=== PATIENT | female | born 1965 | race Caucasian/White ===

== ENCOUNTER 2018-01-15 12:49 | Emergency (ER) | payer MEDICAID, SELFPAY ==
[2018-01-15 12:50] VITALS: BP 134/69; PULSE 78; RESP 12; TEMP 36.6; BMI 31.2
--- NOTE | 2018-01-15 13:18 | ED.DCSUM_ITS ---
- ER Visit Summary Date of Service: 01/15/18 Chief Complaint: [] Bilateral hand rash and itching for over a month History of Present Illness: The patient is a 52 F [] diabetes well controlled she reports she has had a red itchy rash to her hands for over a month yesterday she began using some type of an ointment she is not sure what it was and then today she noticed a rash into her forearms bilaterally it is itching and making her skin feel like it is burning. She has had no fever no cough no exposures she has dry skin that is apparent when you examine her elbows but she has no underlying skin condition, she has had no exposure to insects or bites she has had no fever no cough and the rash was only on her hands and now it is only on her hands and forearms again her diabetes has been well-controlled she has no other complaints or concerns Physical Examination: [] He does have a red rash involving really the dorsal surface of her hands is extended up to the forearms there is no petechia purpura skin breakdown or blistering her hand function completely normal the rash does anthony there is no signs of fungus no signs of cellulitis, no signs of lymphangitic streaking she has full range of motion of the hands and elbows and upper extremities her HEENT exam is unremarkable her lungs are clear heart tones are normal abdomen soft nontender upper lower extremities unremarkable, her skin exam is otherwise unremarkable the rash is restricted to her hands the folds between her fingers are normal her nail nailbeds are normal I do not see any signs of bite lesions or anything to suggest a cellulitis or infection Test Results: [] Emergency Department Course and Treatment: [] I had a long conversation with the patient she assures me the rash began on her hands she has had it there for months she is not sure what this appointment was she used yesterday and it seems that when she started using the ointment that is when the rash spread to her forearms, clinically she looks well her chief complaint is that the rash is quite itchy, we discussed the long differential she understands at this time she will stop whatever ointment or lotion she has been using on her hands, she will use a mild soap like Dove dry her hands and then apply Lotrisone ointment twice daily and follow-up with her physicians and return for change in symptoms she understands and agrees this plan, I have also given her referral to dermatology Treatment Plan: [] Disposition: [] Home stable Impression: []puritic rash to hands and forearms for months etiology unclear This note was generated with [employer] dictation software. It may contain incorrect words, spelling, and punctuation that were not noted in review of the chart prior to signing ED Disposition - Plan for ED Patient: Chief Complaint: Itching Referrals: Rebeka Rabago MD [Primary Care Provider] -
--- NOTE | 2018-01-15 13:18 | ED.DEP ---
ED Disposition - Plan for ED Patient: Chief Complaint: Itching Instructions: ED Allergic Reaction General Other, ED Dermatitis Contact Prescriptions: Clotrimazole/Betamethasone Dip [Lotrisone Cream] 45 gm TP BID 14 Days cream..g. Referrals: Rebeka Rabago MD [Primary Care Provider] - Erwin Waters MD [CONSULTING PHYSICIAN] - Gladys Trinidad MD [NON-STAFF] - Edy Garcia MD [STAFF PHYSICIAN] -
== END 2018-01-15 13:39 | disposition home or self-care (01) ==
LOC: ED 13:35
PROVIDERS: Emergency Provider Emergency Medicine; Family Provider Internal Medicine; PCP Internal Medicine
DX: L29.9 Pruritus, unspecified (principal); R21 Rash and other nonspecific skin eruption; E11.9 Type 2 diabetes mellitus without complications; Z79.4 Long term (current) use of insulin; Z79.899 Other long term (current) drug therapy

== ENCOUNTER 2021-03-17 16:08 | Emergency (ER) | payer MEDICAID, SELFPAY ==
[2021-03-17 16:09] VITALS: BP 101/55; PULSE 87; RESP 18; TEMP 36.1; O2SAT 97; BMI 35.0
--- NOTE | 2021-03-17 17:02 | EX.ED.DYSGE1 ---
HPI History of Present Illness Chief Complaint: Flank Pain Narrative Narrative: 55-year-old female presenting with left flank pain. She states has been there for about a week. She describes it as aching. She denies dysuria or hematuria. Patient also denies change in bowel habits. She denies fever or chills. She does not have nausea or vomiting. Patient states the pain has been constant and getting worse. She has a history of kidney stones and is not sure if this feels the same. [facility] Medical History Type 2 diabetes mellitus Home Medications canagliflozin [Invokana] 300 mg PO DAILY 05/24/15 [History Last Taken 05/23/15] fenofibrate [Lofibra] 160 mg PO QHS 05/24/15 [History Last Taken 05/23/15] fluticasone propionate 2 spray NASAL QHS 05/24/15 [History Last Taken 05/23/15] hydrochlorothiazide 12.5 mg PO DAILY 05/24/15 [History Last Taken 05/24/15] insulin lispro [Humalog] 16 unit SQ TID 05/24/15 [History Last Taken 05/23/15] levothyroxine 100 mcg PO DAILY 05/24/15 [History Last Taken Unknown] pravastatin 40 mg PO DAILY 05/24/15 [History Last Taken 05/24/15] clotrimazole-betamethasone 45 gm TP BID 14 Days cream..g. 01/15/18 [Rx Last Taken Unknown] insulin glargine [Basaglar Kwikpen U-100] 50 unit SQ DAILY 01/15/18 [History Last Taken Unknown] hydrocodone-acetaminophen 1 tab PO Q6H PRN PRN 3 Days #12 tablet 03/17/21 [Rx Last Taken Unknown] lisinopril 2.5 mg PO DAILY 03/17/21 [History Last Taken Unknown] ondansetron HCl [Zofran] 4 mg PO Q8H PRN #14 tab 03/17/21 [Rx Last Taken Unknown] sulfamethoxazole-trimethoprim [Bactrim DS] 1 tab PO BID #14 tab 03/17/21 [Rx Last Taken Unknown] Allergy/AdvReac Type Severity Reaction Status Date / Time acetaminophen [From Percocet] AdvReac Other Verified 03/17/21 16:11 metformin AdvReac Diarrhea Verified 03/17/21 16:11 oxycodone [From Percocet] AdvReac Other Verified 03/17/21 16:11 Social History Smoking Status: Former smoker ROS ROS ED Constitutional Constitutional ED: Denies chills, fever(s) or sweats Eyes Eyes: Denies blurry vision or change in vision ENT ENT ED: Denies ear pain or sore throat Cardiovascular Cardiovascular: Denies chest pain, palpitations or racing heartbeat Respiratory/Chest Respiratory/Chest: Denies cough, dyspnea or sputum Gastrointestinal Gastrointestinal: Reports abdominal pain; Denies constipation, diarrhea, nausea or vomiting Genitourinary Genitourinary ED: Denies dysuria, hematuria or urinary frequency Musculoskeletal Musculoskeletal: Denies arthralgias, myalgias or neck pain Integumentary Denies abscess, Abrasions or rash Neurologic Neurologic: Denies headache(s), paresthesias or weakness Psychiatric Psychiatric: Denies anxiety, depression, suicidal ideation or suicidal thoughts Endocrine Endocrinology: Denies polydipsia or polyuria EXAM Physical Exam Const Vital Signs: 03/17/21 16:09 03/17/21 16:51 03/17/21 19:13 Temperature 97 F L 98.5 F Temperature Source Temporal Oral Pulse Rate 87 100 Respiratory Rate 18 18 Respiratory Effort Normal Non-Labored Respiratory Pattern Normal Blood Pressure 101/55 L 113/67 Blood Pressure Mean 70 82 Pulse Ox 97 92 Oxygen Delivery Method Room Air Room Air Positive well nourished General Appearance ED: NAD HEENT Reports moist mucous membranes Negative for trauma Eyes PERRL and EOMs intact bilaterally Resp normal respiratory effort and clear to auscultation bilaterally Cardio regular rate and regular rhythm GI normal to inspection, nondistended, normoactive bowel sounds and non-distended Auscultation: hypoactive bowel sounds Palpation: soft Back/Spine no CVA tenderness Extremity normal to inspection General Extremety ED: Negative for edema or tenderness General Extremity: Negative for edema Neuro oriented x3 Sensorium / Orientation: alert Psych mental status grossly normal Skin no rashes or lesions noted and no wounds MDM MDM MDM Narrative Medical decision making narrative: Patient presenting with left flank pain and history of kidney stone. She states her pain is achy in nature. She does not have any CVA tenderness on the left. I table lab work shows a leukocytosis of 13.4, hemoglobin hematocrit are stable.Venous duplex of the right lower extremity shows Renal function appears to be at baseline. Patient had CT abdomen pelvis with out IV contrast which shows no kidney stone but does show hydronephrosis and possibly patient could have passed a kidney stone. Patient has blood in her urine which would support this however she also has a UTI. Patient will be started on Bactrim with first dose given in the ED and treated as pyelonephritis. She is also given [place] for pain and Zofran for nausea. Patient is given return precautions. Impression: 1. Pyelonephritis Lab Data Labs: Laboratory Results - last 24 hr 03/17/21 03/17/21 03/17/21 16:45 16:45 17:20 WBC 13.4 H RBC 5.25 Hgb 14.9 Hct 47.0 MCV 89.5 MCH 28.4 MCHC 31.7 L RDW Std Deviation 44.1 H RDW Coeff of Catina 13.5 Plt Count 178 MPV 11.1 Immature Gran % (Auto) 0.400 Neut % (Auto) 84.2 H Lymph % (Auto) 7.9 L [place] % (Auto) 6.2 Eos % (Auto) 1.2 Baso % (Auto) 0.1 Absolute Neuts (auto) 11.3 H Absolute Lymphs (auto) 1.05 Nucleated RBC % 0 Sodium 141 Potassium 3.9 Chloride 105 Carbon Dioxide 30.0 Anion Gap 6 BUN 40 H Creatinine 1.27 H Estim Creat Clear Calc 41.40 Est GFR (MDRD) Af Amer 56 L Est GFR (MDRD) Non-Af 46 L BUN/Creatinine Ratio 31.5 H Glucose 131 H Calcium 9.6 Total Bilirubin 0.30 AST 11 L ALT 17 Alkaline Phosphatase 62 Total Protein 8.1 Albumin 3.6 Globulin 4.5 H Albumin/Globulin Ratio 0.8 L Urine Color Yellow Urine Clarity Cloudy Urine pH 6.0 Ur Specific [place] 1.015 Urine Protein 100 H Urine Glucose (UA) 1000 H Urine Ketones Negative Urine Occult Blood 250 H Urine Nitrite Positive H Urine Bilirubin Negative Urine Urobilinogen Normal Ur Leukocyte Esterase 500 H Urine RBC 25-50 SEEN Urine WBC >100 SEEN Ur Squamous Epith Cells 0-5 SEEN Urine Bacteria 1+ Urine Mucus 0 SEEN Urine Test Negative Radiography Diagnostic Testing: Radiology Impression Abdomen/Pelvis CT 03/17/21 18:19 IMPRESSION: 1. Mild left hydronephrosis and hydroureter are present as well as mild perinephric stranding most likely due to recent passage of a tiny stone obscured by the fluid within the distended bladder. No additional radiopaque stones are seen in either kidney. 2. Tiny gallstone 3. Cirrhotic liver Electronically Signed: Pranay Wilkins MD at 19:24 EDT , Service support , Discharge Plan Triage Chief Complaint: Flank Pain ED Provider: Steven Trent Dx/Rx/DC Orders Instructions: ED Pyelonephritis, Female (Adult) Prescriptions: New sulfamethoxazole-trimethoprim [Bactrim DS] 800-160 mg tablet 1 tab PO BID Qty: 14 RF: 0 hydrocodone-acetaminophen 5-325 mg tablet 1 tab PO Q6H PRN PRN (Reason: Pain) 3 Days Qty: 12 RF: 0 ondansetron HCl [Zofran] 4 mg tablet 4 mg PO Q8H PRN (Reason: nausea and vomiting) Qty: 14 RF: 0 No Action pravastatin 40 MG tablet 40 mg PO DAILY RF: 0 levothyroxine 88 MCG tablet 100 mcg PO DAILY RF: 0 hydrochlorothiazide 12.5 MG capsule 12.5 mg PO DAILY RF: 0 insulin lispro [Humalog U-100 Insulin] 100 UNIT/ML solution 16 unit SQ TID RF: 0 fenofibrate [Lofibra] 160 MG tablet 160 mg PO QHS RF: 0 canagliflozin [Invokana] 300 MG tablet 300 mg PO DAILY RF: 0 fluticasone propionate 1 SPRAY spray,suspension 2 spray NASAL QHS RF: 0 insulin glargine [Basaglar KwikPen U-100 Insulin] 100 UNIT/ML insulin pen 50 unit SQ DAILY RF: 0 clotrimazole-betamethasone 15 GM cream 45 gm TP BID 14 Days RF: 0 lisinopril 2.5 mg tablet 2.5 mg PO DAILY RF: 0 Primary Care Provider: Rebeka Rabago Referrals: Rebeka Rabago MD [Primary Care Provider] - Disposition Disposition: Home, self care Discharge Date/Time: 03/17/21 20:13
[2021-03-17] MEDS: Morphine 4 MG/ML Syringe IV (17:12)
[2021-03-17] MEDS: Ondansetron 4 MG/2 ML Vial IV (17:14)
[2021-03-17 17:26] LABS: Absolute Lymphocyte Count 1.05 X10^3/uL (0.83-4.51); Absolute Neutrophil Count 11.3 X10^3/uL (2.0-7.7); Basophil# 0.02 X10^3/uL; Basophil% 0.1 % (0-1); Eosinophil# 0.16 X10^3/uL; Eosinophils% 1.2 % (0-5); Hemoglobin 14.9 g/dL (12.0-15.0); Lymphocyte # 1.05 X10^3/ul (0.83-4.51); Lymphocyte % 7.9 % (19-41); Mean Corp Hgb Conc 31.7 g/dL (32-36); Mean Corpuscular Hgb 28.4 pg (27.0-32.0); Mean Corpuscular Volume 89.5 fL (81-99); Mean Platelet Vol. 11.1 fl (6.2-12.0); Monocyte# 0.83 X10^3/uL; Monocyte% 6.2 % (0-10); NRBC Flagged by Analyzer 0 % (0-5); Neutrophil # 11.25 X10^3/uL (2.7-7.7); Neutrophil % 84.2 % (47-70); Platelet Count 178 K/mm3 (150-450); RBC Distribution Width CV 13.5 % (11.6-14.6); RBC Distribution Width SD 44.1 fl (35.1-43.9); Red Blood Count 5.25 M/mm3 (4.2-5.4); White Blood Count 13.4 K/mm3 (4.4-11.0)
[2021-03-17 17:31] LABS: ALB/GLOB Ratio 0.8 RATIO (0.9-2.4); AST(SGOT) 11 U/L (15-37); Alanine Aminotransfer ALT/SGPT 17 U/L (13-56); Albumin, Serum 3.6 g/dL (3.2-5.0); Alkaline Phosphatase 62 U/L (45-117); Anion Gap 6 (5-15); BUN 40 mg/dL (7-18); BUN/Creat Ratio 31.5 RATIO (10-20); Calcium,Total 9.6 mg/dL (8.5-10.1); Chloride 105 mmol/L (98-107); Creatinine, Serum 1.27 mg/dL (0.55-1.02); EST Glomerular Filtration Rate 46 mL/min (>60); Est Glom Filt Rate - Afr Amer 56 mL/min (>60); Globulin 4.5 g/dL (2.2-4.2); Glucose 131 mg/dL (74-106); Potassium 3.9 mmol/L (3.5-5.1); Protein, Total 8.1 g/dL (6.4-8.2); Sodium Level 141 mmol/L (136-145)
[2021-03-17 17:38] LABS: Mucous, Urine 0 SEEN /hpf (<or=2+)
[2021-03-17 17:45] LABS: Color, Urine Yellow (Yellow); Glucose, Dipstick 1000 mg/dl (Normal); Ketone-Dipstick Negative (Negative); Leukocyte Esterase-Dipstick 500 /ul (Negative); Nitrite-Dipstick Positive (Negative); Occult Blood-Urine 250 /ul (Negative); Protein-Dipstick 100 mg/dl (Negative); Specific Gravity, Urine 1.015 (1.002-1.030); Urine Bilirubin Dipstick Negative (Negative); Urine Clarity Cloudy (Clear); Urine Urobilinogen Normal (Normal)
[2021-03-17 17:48] LABS: Internal QC Validated? YES +Cl - CLEAR BKGD
[2021-03-17 17:49] LABS: Pregnancy, Urine Negative Negative
[2021-03-17 17:51] LABS: Bacteria 1+ /hpf (None Seen); Red Blood Cells-Urine 25-50 SEEN /hpf (0-5); Squamous Epithelial Cells - UA 0-5 SEEN /hpf (5-10); White Blood Cells >100 SEEN /hpf (0-5)
--- NOTE | 2021-03-17 18:19 | CT_ITS ---
STUDY: CT ABDOMEN AND PELVIS WITHOUT CONTRAST REASON FOR EXAM: Female, 55 years old. flank pain RADIATION DOSAGE (If Supplied By Facility): CTDIvol = ( 17.45 ) mGy, DLP = ( 919.81 ) mGycm TECHNIQUE: Transaxial images were obtained from the dome of the diaphragm to the symphysis pubis without oral contrast, and without intravenous contrast. Sagittal and coronal images were reconstructed. Individualized dose optimization techniques were used for this CT. COMPARISON: CT of abdomen and pelvis dated November 05, 2016 FINDINGS: There are chronic interstitial fibrotic changes of the lung bases. Small calcified granulomas are present in the lung bases. Small cysts are also seen. There is a diffuse contour abnormality of the liver consistent with cirrhotic changes. There is a tiny solitary gallstone. There are multiple benign calcified granulomata of the spleen. Normal pancreas. Normal bilateral adrenal glands. Normal right kidney. Mild left hydronephrosis and hydroureter are present as well as mild perinephric stranding most likely due to recent passage of a tiny stone obscured by the fluid within the distended bladder. No additional radiopaque stones are seen in either kidney. Normal visualized stomach. Normal small intestine. Normal colon. There is non-visualization of the appendix. Normal abdominal aorta. Normal inferior vena cava. Normal retroperitoneum. Normal urinary bladder. Normal visualized uterus. Small bilateral fat-containing inguinal hernias noted. There are diffuse degenerative changes of the visualized lumbar spine. CT/Abdomen/Pelvis without Cont IMPRESSION: 1. Mild left hydronephrosis and hydroureter are present as well as mild perinephric stranding most likely due to recent passage of a tiny stone obscured by the fluid within the distended bladder. No additional radiopaque stones are seen in either kidney. 2. Tiny gallstone 3. Cirrhotic liver Electronically Signed: Pranay Wilkins MD at 19:24 EDT , Service support ,
[2021-03-17] MEDS: Ketorolac 15 MG/ML Vial IV (19:08)
[2021-03-17 19:13] VITALS: BP 113/67; PULSE 100; RESP 18; TEMP 36.9; O2SAT 92
[2021-03-17] MEDS: Smz/Tmp Ds Tablet 1 TABLET PO (20:06)
[2021-03-17] MEDS: HYDROcodone Bitartrate/Apap 5/325 Tablet PO (20:06)
== END 2021-03-17 20:13 | disposition home or self-care (01) ==
PROVIDERS: Emergency Provider Student in an Organized Health Care Education/Training Program; PCP Internal Medicine
DX: N12 Tubulo-interstitial nephritis, not specified as acute or chronic (principal); Z87.891 Personal history of nicotine dependence; Z87.442 Personal history of urinary calculi; Z79.899 Other long term (current) drug therapy
CPT/HCPCS: 74176; 80053; 81001; 81025; 85025; 96374; 96375; 99284; J7030; A4216; J2405

== ENCOUNTER 2021-03-25 17:12 | Inpatient (IN) | payer MEDICAID, SELFPAY ==
[2021-03-25 17:12] VITALS: BP 96/48; PULSE 83; PULSE 84; RESP 16; TEMP 36.3; O2SAT 98; BMI 34.0
--- NOTE | 2021-03-25 18:13 | ED.VIS.GI ---
HPI HPI - GI History of Present Illness Chief Complaint: Abd Pain Informant: patient Abdominal Pain/Flank Pain Onset: Weeks (almost 2, approx) Context: - (unsure of onset) Timing: Continuous Quality: Aching Location: Left Flank Current Severity: Moderate Maximum Severity: Severe Worsened by: Nothing Relieved by: - (norco, but ran out) Nausea/Vomiting/Emesis GI Symptom: Positive for Nausea; Negative for Vomiting Diarrhea/Melena/Hematochezia GI Symptom: Negative for Diarrhea, Melena and Hematochezia Associated Symptoms Associated Symptoms: Negative for Dysuria, Frequency, Hematuria and Urgency Narrative Narrative: Patient has been having pain in her left flank, lower quadrant, thinks it feels like prior kidney stone, she needed lithotripsy once in the past saw somebody in [facility] for that but does not know who the urologist was it was a long time ago. She was seen here about a week ago had a CT that showed hydronephrosis/hydroureter on the left without a stone, she was told that maybe she passed 1, urine showed infection so she was diagnosed with pyelonephritis and placed on Bactrim which she is almost done with and states her pain is persistent, she denies any new symptoms. She has not followed up with anybody since her visit a week ago. [facility] Medical History (Updated 03/25/21 @ 19:59 by Aida Coronel) Hypercholesteremia Hypertension Hypothyroid Kidney stones Migraines Type 2 diabetes mellitus Home Medications fenofibrate [Lofibra] 160 mg PO QHS 05/24/15 [History Last Taken 05/23/15] fluticasone propionate 2 spray NASAL QHS 05/24/15 [History Last Taken 05/23/15] hydrochlorothiazide 12.5 mg PO DAILY 05/24/15 [History Last Taken 05/24/15] insulin lispro [Humalog] 20 unit SQ TID 05/24/15 [History Last Taken 05/23/15] levothyroxine 100 mcg PO DAILY 05/24/15 [History Last Taken Unknown] pravastatin 40 mg PO DAILY 05/24/15 [History Last Taken 05/24/15] clotrimazole-betamethasone 45 gm TP BID 14 Days cream..g. 01/15/18 [Rx Last Taken Unknown] insulin glargine [Basaglar Kwikpen U-100] 72 unit SQ DAILY 01/15/18 [History Last Taken Unknown] hydrocodone-acetaminophen 1 tab PO Q6H PRN PRN 3 Days #12 tablet 03/17/21 [Rx Last Taken Unknown] lisinopril 2.5 mg PO DAILY 03/17/21 [History Last Taken Unknown] sulfamethoxazole-trimethoprim [Bactrim DS] 1 tab PO BID #14 tab 03/17/21 [Rx Last Taken Unknown] Allergy/AdvReac Type Severity Reaction Status Date / Time metformin AdvReac Diarrhea Verified 03/17/21 16:11 oxycodone [From Percocet] AdvReac upset Verified 03/25/21 20:01 stomach/off balance Surgical History (Updated 03/25/21 @ 20:00 by Aida Coronel) History of appendectomy Previous section Social History Smoking Status: Former smoker ROS ROS ED Constitutional Constitutional ED: Denies chills or fever(s) Eyes Eyes: Denies change in vision or diplopia ENT ENT ED: Denies rhinorrhea or sore throat Cardiovascular Cardiovascular: Denies chest pain or palpitations Respiratory/Chest Respiratory/Chest: Denies cough or dyspnea Gastrointestinal Gastrointestinal: Reports abdominal pain and nausea; Denies diarrhea or vomiting Genitourinary Genitourinary ED: Denies dysuria or hematuria Musculoskeletal Musculoskeletal: Reports back pain; Denies neck pain Integumentary Denies abscess or rash Neurologic Neurologic: Reports headache(s); Denies paresthesias or weakness Psychiatric Psychiatric: Denies anxiety or suicidal thoughts EXAM Physical Exam Const Vital Signs: 03/25/21 17:12 03/25/21 19:16 Temperature 97.4 F L Temperature Source Temporal Pulse Rate 83 90 Respiratory Rate 16 16 Blood Pressure 96/48 L 108/64 Blood Pressure Mean 64 78 Pulse Ox 98 91 Oxygen Delivery Method Room Air Room Air Positive well nourished and well developed General Appearance ED: well developed and NAD HEENT Reports moist mucous membranes normocephalic and atraumatic Eyes PERRL and EOMs intact bilaterally Neck full ROM and supple Resp normal respiratory effort and clear to auscultation bilaterally Cardio regular rate, regular rhythm and no murmurs GI non-tender GI Narrative: Distended with fluid wave Auscultation: normoactive bowel sounds Palpation: soft Back/Spine no CVA tenderness General Back: other FROM Extremity normal to inspection General Extremety ED: Negative for edema, pulses abnormal or tenderness General Extremity: Negative for edema or pulses abnormal Neuro oriented x3, CN's II-XII intact bilaterally and no sensory deficits noted Sensorium / Orientation: awake and alert Motor Exam: strength 5/5 throughout Skin no rashes or lesions noted and no wounds MDM MDM MDM Narrative Medical decision making narrative: Patient feels better after antiemetic and analgesics, her work-up shows that her creatinine now is 2.2, up from 1.27, with a similar BUN around 40, and her urine still shows significant pyuria/infection. No culture was sent before, I sent one, her white blood count is higher than it was before, I treated her with Rocephin, plan is for admission mainly because of the renal failure. Discussed with hospitalist and urology Dr. Alfonso, agrees with this course of action. Lab Data Attestation: I reviewed the patient's lab results. Labs: Laboratory Results - last 24 hr 03/25/21 03/25/21 03/25/21 18:20 18:43 18:43 WBC 14.4 H RBC 4.55 Hgb 12.8 Hct 40.5 MCV 89.0 MCH 28.1 MCHC 31.6 L RDW Std Deviation 44.8 H RDW Coeff of Catina 13.8 Plt Count 185 MPV 10.2 Immature Gran % (Auto) 0.900 Neut % (Auto) 82.3 H Lymph % (Auto) 8.8 L [place] % (Auto) 7.5 Eos % (Auto) 0.3 Baso % (Auto) 0.2 Absolute Neuts (auto) 11.8 H Absolute Lymphs (auto) 1.26 Nucleated RBC % 0 Sodium 134 L Potassium 4.2 Chloride 99 Carbon Dioxide 27.0 Anion Gap 8 BUN 42 H Creatinine 2.20 H Estim Creat Clear Calc 24.95 Est GFR (MDRD) Af Amer 30 L Est GFR (MDRD) Non-Af 25 L BUN/Creatinine Ratio 19.1 Glucose 134 H Calcium 9.3 Urine Color Yellow Urine Clarity Turbid Urine pH 6.0 Ur Specific [place] 1.015 Urine Protein 100 H Urine Glucose (UA) 1000 H Urine Ketones Negative Urine Occult Blood 50 H Urine Nitrite Positive H Urine Bilirubin Negative Urine Urobilinogen Normal Ur Leukocyte Esterase 500 H Urine RBC 0 SEEN Urine WBC >100 SEEN Ur Squamous Epith Cells 0 SEEN Urine Bacteria 0 SEEN Urine Mucus 0 SEEN Discharge Plan Dx/Rx/DC Orders Clinical Impression: Pyelonephritis, Failure of outpatient treatment, Acute renal failure Disposition Disposition: [facility]
[2021-03-25] MEDS: Ondansetron 4 MG/2 ML Vial IV (18:45)
[2021-03-25] MEDS: Morphine 4 MG/ML Syringe IV ×2 (18:47→20:23)
[2021-03-25 18:53] LABS: Absolute Lymphocyte Count 1.26 X10^3/uL (0.83-4.51); Absolute Neutrophil Count 11.8 X10^3/uL (2.0-7.7); Basophil# 0.03 X10^3/uL; Basophil% 0.2 % (0-1); Eosinophil# 0.04 X10^3/uL; Eosinophils% 0.3 % (0-5); Hematocrit 40.5 % (37-47); Hemoglobin 12.8 g/dL (12.0-15.0); Lymphocyte # 1.26 X10^3/ul (0.83-4.51); Lymphocyte % 8.8 % (19-41); Mean Corp Hgb Conc 31.6 g/dL (32-36); Mean Corpuscular Hgb 28.1 pg (27.0-32.0); Mean Platelet Vol. 10.2 fl (6.2-12.0); Monocyte# 1.08 X10^3/uL; Monocyte% 7.5 % (0-10); NRBC Flagged by Analyzer 0 % (0-5); Neutrophil # 11.82 X10^3/uL (2.7-7.7); Neutrophil % 82.3 % (47-70); Platelet Count 185 K/mm3 (150-450); RBC Distribution Width CV 13.8 % (11.6-14.6); RBC Distribution Width SD 44.8 fl (35.1-43.9); Red Blood Count 4.55 M/mm3 (4.2-5.4); White Blood Count 14.4 K/mm3 (4.4-11.0)
[2021-03-25 18:53] LABS: Bacteria 0 SEEN /hpf (None Seen); Mucous, Urine 0 SEEN /hpf (<or=2+); Red Blood Cells-Urine 0 SEEN /hpf (0-5); Squamous Epithelial Cells - UA 0 SEEN /hpf (5-10)
[2021-03-25 18:55] LABS: Color, Urine Yellow (Yellow); Glucose, Dipstick 1000 mg/dl (Normal); Ketone-Dipstick Negative (Negative); Leukocyte Esterase-Dipstick 500 /ul (Negative); Nitrite-Dipstick Positive (Negative); Occult Blood-Urine 50 /ul (Negative); Protein-Dipstick 100 mg/dl (Negative); Specific Gravity, Urine 1.015 (1.002-1.030); Urine Bilirubin Dipstick Negative (Negative); Urine Clarity Turbid (Clear); Urine Urobilinogen Normal (Normal)
[2021-03-25 19:03] LABS: White Blood Cells >100 SEEN /hpf (0-5)
[2021-03-25 19:07] LABS: Anion Gap 8 (5-15); BUN 42 mg/dL (7-18); BUN/Creat Ratio 19.1 RATIO (10-20); Calcium,Total 9.3 mg/dL (8.5-10.1); Chloride 99 mmol/L (98-107); EST Glomerular Filtration Rate 25 mL/min (>60); Est Glom Filt Rate - Afr Amer 30 mL/min (>60); Estimated Creatinine Clearance 24.95 ml/min; Glucose 134 mg/dL (74-106); Potassium 4.2 mmol/L (3.5-5.1); Sodium Level 134 mmol/L (136-145)
[2021-03-25 19:16] VITALS: BP 108/64; PULSE 90; RESP 16; O2SAT 91
[2021-03-25] MEDS: Ceftriaxone 1 GM/50 ML BAG IV (20:11)
[2021-03-25 20:54] VITALS: BP 108/64; PULSE 90; RESP 16; TEMP 36.3; O2SAT 91
--- NOTE | 2021-03-25 20:59 | HP.PCM.HOS_ITS ---
HPI - General General Date of Admission: 03/25/21 Date of Service: 03/25/21 Chief Complaint: left flank pain HPI Narrative BETTY AGARWAL, is a 55 F who presents presents with 2 and half week history of left flank pain. Patient also complains of urinary hesitancy and frequency. Patient was seen in the emergency room on the and underwent a CAT scan that showed mild left hydronephrosis and hydroureter as well as mild perinephric stranding most likely due to recent passage of tiny stone. Patient was found to have urinary tract infection and discharged with trimethoprim/sulfamethoxazole. Patient said that she had been taking it but had not followed up with anyone but her pain has not gotten any better. She presents again to the emergency room today again the urinalysis shows signs of an infection. Patient's creatinine has gone from 1.2-2.2 now. Patient did receive fluids as well is ceftriaxone in the emergency room. Emergency room reached out to urology, with Dr. Chakraborty, who said that she would be willing to see the patient on consultation. [facility] Medical History Hypercholesteremia Hypertension Hypothyroid Kidney stones Migraines Type 2 diabetes mellitus Home Medications fluticasone propionate 2 spray NASAL QHS 05/24/15 [History Last Taken 03/24/21] hydrochlorothiazide 12.5 mg PO DAILY 05/24/15 [History Last Taken 03/24/21] insulin lispro [Humalog] 20 unit SQ TID 05/24/15 [History Last Taken 03/24/21] pravastatin 40 mg PO DAILY 05/24/15 [History Last Taken 03/24/21] insulin glargine [Basaglar Kwikpen U-100] 72 unit SQ DAILY 01/15/18 [History Last Taken 03/24/21] lisinopril 2.5 mg PO DAILY 03/17/21 [History Last Taken 03/24/21] sulfamethoxazole-trimethoprim [Bactrim DS] 1 tab PO BID #14 tab 03/17/21 [Rx Last Taken 03/24/21] dulaglutide [Trulicity] 1.5 mg SUBCUT JOHNSON 03/25/21 [History Last Taken 03/23/21] estradiol 3 g VAGINAL .2X/WEEK 03/25/21 [History Last Taken Unknown] fenofibrate 160 mg PO DAILY 03/25/21 [History Last Taken 03/24/21] gabapentin 300 mg PO QHS 03/25/21 [History Last Taken 03/24/21] levothyroxine 175 mcg PO DAILY 03/25/21 [History Last Taken 03/24/21] meloxicam 15 mg PO DAILY PRN 03/25/21 [History Last Taken Unknown] omega-3 fatty acids-vitamin E [Fish Oil] 1 cap PO DAILY 03/25/21 [History Last Taken 03/24/21] vitamin E 400 unit PO DAILY 03/25/21 [History Last Taken 03/24/21] Allergy/AdvReac Type Severity Reaction Status Date / Time metformin AdvReac Diarrhea Verified 03/17/21 16:11 oxycodone [From Percocet] AdvReac upset Verified 03/25/21 20:01 stomach/off balance Surgical History History of appendectomy Previous section Social History Smoking Status: Former smoker ROS ROS Narrative No fever chills. No sick contacts. No COVID-19 exposure. All review of systems were negative except as mentioned above in the history of present illness and the other review of systems. ENT HEENT: Reports headache(s) Gastrointestinal Gastrointestinal: Reports abdominal pain and nausea; Denies vomiting Genitourinary Genitourinary: Reports difficulty urinating, urinary frequency and urinary hesitancy; Denies burning urination Vital Signs Vital Signs Vital Signs: 03/25/21 17:12 03/25/21 19:16 03/25/21 20:54 Temperature 36.3 C L 36.3 C L Temperature Source Temporal Temporal Pulse Rate 83 90 90 Respiratory Rate 16 16 16 Blood Pressure 96/48 L 108/64 108/64 Blood Pressure Mean 64 78 78 Pulse Ox 98 91 91 Oxygen Delivery Method Room Air Room Air Room Air Weight Weight: 90 kg Body Mass Index (BMI) 34.0 Physical Exam Const alert General Appearance: cooperative HEENT normocephalic Neck no lymphadenopathy Resp normal respiratory effort and clear to auscultation bilaterally Cardio regular rate, regular rhythm, S1 normal heart sound and S2 normal heart sound GI normal to inspection, nondistended, normoactive bowel sounds, non-tender and non-distended GI Narrative: No CVA tenderness Extremity normal to inspection Skin Skin Narrative: Does have a scab on her right anterior jacobs. No surrounding erythema to suggest cellulitis. No rash noted over the left flank to suggest herpes zoster. Neuro moves all extremities and no focal motor deficits Sensorium / Orientation: awake and alert Psych affect normal Results Lab / Micro Data Attestation: I reviewed the patient's lab results. Result Diagrams: 03/25/21 18:43 03/25/21 18:43 Labs: Laboratory Results - last 24 hr 03/25/21 03/25/21 03/25/21 18:20 18:43 18:43 WBC 14.4 H RBC 4.55 Hgb 12.8 Hct 40.5 MCV 89.0 MCH 28.1 MCHC 31.6 L RDW Std Deviation 44.8 H RDW Coeff of Catina 13.8 Plt Count 185 MPV 10.2 Immature Gran % (Auto) 0.900 Neut % (Auto) 82.3 H Lymph % (Auto) 8.8 L [place] % (Auto) 7.5 Eos % (Auto) 0.3 Baso % (Auto) 0.2 Absolute Neuts (auto) 11.8 H Absolute Lymphs (auto) 1.26 Nucleated RBC % 0 Sodium 134 L Potassium 4.2 Chloride 99 Carbon Dioxide 27.0 Anion Gap 8 BUN 42 H Creatinine 2.20 H Estim Creat Clear Calc 24.95 Est GFR (MDRD) Af Amer 30 L Est GFR (MDRD) Non-Af 25 L BUN/Creatinine Ratio 19.1 Glucose 134 H Calcium 9.3 Urine Color Yellow Urine Clarity Turbid Urine pH 6.0 Ur Specific [place] 1.015 Urine Protein 100 H Urine Glucose (UA) 1000 H Urine Ketones Negative Urine Occult Blood 50 H Urine Nitrite Positive H Urine Bilirubin Negative Urine Urobilinogen Normal Ur Leukocyte Esterase 500 H Urine RBC 0 SEEN Urine WBC >100 SEEN Ur Squamous Epith Cells 0 SEEN Urine Bacteria 0 SEEN Urine Mucus 0 SEEN Assessment & Plan Assessment/Plan (1) Pyelonephritis: (2) Acute renal failure: QUALIFIERS: Acute renal failure type: unspecified Qualified Code(s): N17.9 - Acute kidney failure, unspecified PLAN: 1. Acute pyelonephritis * CAT scan noted perinephric stranding back on the . * Patient still experiencing left flank pain * Urinalysis still showing signs of infection despite the trimethoprim/sulfamethoxazole. * Patient received ceftriaxone in the emergency room and will continue on the floor. * Unfortunately no urine culture was performed on the but a urine culture was performed today and will need to be followed up. * Adjust antibiotics accordingly based on culture results. 2. Hydronephrosis and hydroureter * No stone noted at that time on the . * Will repeat ultrasound and if still showing hydronephrosis and hydroureter, co nsider consulting urology 3. Acute kidney injury * Worse from a week ago * Unclear if obstructive or related with trimethoprim/sulfamethoxazole * Continue with IV fluids * Recheck BMP * Consider nephrology consultation if creatinine worsens. * Hold lisinopril and HCTZ 4. Diabetes mellitus type 2 * Continue basal and prandial insulin. + Scale insulin. 5. VTE prophylaxis with low molecular weight heparin 6. Medical maintenance: Patient has not gotten vaccinated nor has contracted COVID-19. She expressed no desire to get the COVID-19 vaccination stating that she just stays inside all the time. I encouraged her to get the COVID-19 vaccination as the risks of COVID-19 far outweigh the risks COVID-19 vaccination. Patient such as her self with her comorbidities. She made no reply in the affirmative whether or not she would get the vaccine. Charges/Coding Visit Charges Inpatient E&M: 32823 Init Hosp L3
[2021-03-25 21:19] VITALS: BP 103/53; PULSE 99; RESP 18; TEMP 36.8; O2SAT 94
[2021-03-25 21:22] VITALS: BMI 34.7
--- NOTE | 2021-03-25 21:27 | US_ITS ---
STUDY: RENAL ULTRASOUND - COMPLETE REASON FOR EXAM: Female, 55 years old. left hydronephrosis TECHNIQUE: Ultrasound evaluation of the kidneys was performed with real-time and static noguera-scale imaging. COMPARISON: CT abdomen and pelvis dated 03/17/2021 FINDINGS: RIGHT KIDNEY: Normal location of the right kidney, which is normal in size. The right kidney measures 13.4 cm. There is a normal cortex of the right kidney. The renal cortex measures 1.7 cm. Small subcentimeter anechoic midpole renal cyst. There are no right renal calculi. There is no right hydronephrosis. DISTAL RIGHT URETER: There is non-visualization of the distal right ureter. There is no demonstrated right ureterovesical junction calculus. There is no demonstrated right ureteral jet. LEFT KIDNEY: Normal location of the left kidney, which is normal in size. The left kidney measures 12.6 cm. There is a normal cortex of the left kidney. The renal cortex measures 1.7 cm. There is no left renal mass or cyst. There are no left renal calculi. There is no left hydronephrosis. DISTAL LEFT URETER: There is non-visualization of the distal left ureter. There is no demonstrated left ureterovesical junction calculus. There is no demonstrated left ureteral jet. BLADDER: The distended urinary bladder has a volume of 555 ml. There is a normal wall thickness of the distended urinary bladder. There is no demonstrated mass within the urinary bladder. There are no demonstrated bladder calculi. US/Kidney and Bladder IMPRESSION: Subcentimeter right renal cyst, otherwise unremarkable kidneys. Unremarkable urinary bladder. No evidence of hydronephrosis Electronically Signed: Anatoliy Connor DO at 1:15 EDT Tel , Service support ,
[2021-03-25 21:40] LABS: Bedside Glucose 129 mg/dL (70-110)
[2021-03-25] MEDS: Gabapentin 300 MG Capsule PO (22:33)
[2021-03-25] MEDS: 0.9% Normal Saline 1,000 ML 150 ML IV (22:33)
[2021-03-25] MEDS: Fluticasone 0.05% 1 SPRAY NASAL.SRY 2 SPRAY NASAL (22:33)
[2021-03-25 23:00] VITALS: PULSE 108
[2021-03-26] VITALS (18 sets, daily range): BP systolic 88–118; BP diastolic 41–60; PULSE 72–98; RESP 18–22; TEMP 36.6–37.4; O2SAT 85–95
[2021-03-26] MEDS: 0.9% Normal Saline 1,000 ML 150 ML IV ×2 (04:34→11:14)
[2021-03-26] MEDS: Levothyroxine 175 MCG Tablet PO (06:26)
[2021-03-26 06:56] LABS: Absolute Lymphocyte Count 1.27 X10^3/uL (0.83-4.51); Absolute Neutrophil Count 11.4 X10^3/uL (2.0-7.7); Basophil# 0.03 X10^3/uL; Basophil% 0.2 % (0-1); Eosinophil# 0.01 X10^3/uL; Eosinophils% 0.1 % (0-5); Hematocrit 36.3 % (37-47); Hemoglobin 11.4 g/dL (12.0-15.0); Lymphocyte # 1.27 X10^3/ul (0.83-4.51); Lymphocyte % 9.2 % (19-41); Mean Corp Hgb Conc 31.4 g/dL (32-36); Mean Corpuscular Hgb 28.1 pg (27.0-32.0); Mean Corpuscular Volume 89.4 fL (81-99); Mean Platelet Vol. 10.3 fl (6.2-12.0); Monocyte# 0.98 X10^3/uL; Monocyte% 7.1 % (0-10); NRBC Flagged by Analyzer 0 % (0-5); Neutrophil # 11.37 X10^3/uL (2.7-7.7); Neutrophil % 82.7 % (47-70); Platelet Count 171 K/mm3 (150-450); RBC Distribution Width CV 13.6 % (11.6-14.6); Red Blood Count 4.06 M/mm3 (4.2-5.4); White Blood Count 13.8 K/mm3 (4.4-11.0)
[2021-03-26 07:38] LABS: Anion Gap 8 (5-15); BUN 44 mg/dL (7-18); BUN/Creat Ratio 20.1 RATIO (10-20); Calcium,Total 8.4 mg/dL (8.5-10.1); Chloride 103 mmol/L (98-107); Creatinine, Serum 2.19 mg/dL (0.55-1.02); EST Glomerular Filtration Rate 25 mL/min (>60); Est Glom Filt Rate - Afr Amer 30 mL/min (>60); Estimated Creatinine Clearance 24.01 ml/min; Glucose 133 mg/dL (74-106); Potassium 4.3 mmol/L (3.5-5.1); Sodium Level 134 mmol/L (136-145)
--- NOTE | 2021-03-26 09:12 | PN.HOSP_ITS ---
Subjective Subjective Patient was seen and examined. She feels unwell. She is having low-grade fevers. Denies any dizziness or palpitations. Objective Data Objective Data Vital Signs: Vital Signs Temp Pulse Resp BP Pulse Ox 99.2 F H 98 20 H 113/45 L 92 03/26/21 09:08 03/26/21 09:08 03/26/21 09:08 03/26/21 09:08 03/26/21 09:09 Oxygen Flow Rate (L/min) 2 Oxygen Delivery Method Nasal Cannula Weight: 90.5 kg Body Mass Index (BMI) 34.7 Intake & Output: Intake and Output for Last 24 Hours 03/24/21 03/25/21 03/26/21 23:59 23:59 23:59 Intake Total 550 / 700 1205 / 1205 Balance 550 / 700 1205 / 1205 Lab / Micro Data Result Diagrams: 03/26/21 06:35 03/26/21 06:35 Labs: Laboratory Results - last 24 hr 03/25/21 03/25/21 03/25/21 18:20 18:43 18:43 WBC 14.4 H RBC 4.55 Hgb 12.8 Hct 40.5 MCV 89.0 MCH 28.1 MCHC 31.6 L RDW Std Deviation 44.8 H RDW Coeff of Catina 13.8 Plt Count 185 MPV 10.2 Immature Gran % (Auto) 0.900 Neut % (Auto) 82.3 H Lymph % (Auto) 8.8 L [place] % (Auto) 7.5 Eos % (Auto) 0.3 Baso % (Auto) 0.2 Absolute Neuts (auto) 11.8 H Absolute Lymphs (auto) 1.26 Nucleated RBC % 0 Sodium 134 L Potassium 4.2 Chloride 99 Carbon Dioxide 27.0 Anion Gap 8 BUN 42 H Creatinine 2.20 H Estim Creat Clear Calc 24.95 Est GFR (MDRD) Af Amer 30 L Est GFR (MDRD) Non-Af 25 L BUN/Creatinine Ratio 19.1 Glucose 134 H Calcium 9.3 Urine Color Yellow Urine Clarity Turbid Urine pH 6.0 Ur Specific [place] 1.015 Urine Protein 100 H Urine Glucose (UA) 1000 H Urine Ketones Negative Urine Occult Blood 50 H Urine Nitrite Positive H Urine Bilirubin Negative Urine Urobilinogen Normal Ur Leukocyte Esterase 500 H Urine RBC 0 SEEN Urine WBC >100 SEEN Ur Squamous Epith Cells 0 SEEN Urine Bacteria 0 SEEN Urine Mucus 0 SEEN POC Glucose 03/25/21 03/26/21 03/26/21 21:35 06:35 06:35 WBC 13.8 H RBC 4.06 L Hgb 11.4 L Hct 36.3 L MCV 89.4 MCH 28.1 MCHC 31.4 L RDW Std Deviation 45.0 H RDW Coeff of Catina 13.6 Plt Count 171 MPV 10.3 Immature Gran % (Auto) 0.700 Neut % (Auto) 82.7 H Lymph % (Auto) 9.2 L [place] % (Auto) 7.1 Eos % (Auto) 0.1 Baso % (Auto) 0.2 Absolute Neuts (auto) 11.4 H Absolute Lymphs (auto) 1.27 Nucleated RBC % 0 Sodium 134 L Potassium 4.3 Chloride 103 Carbon Dioxide 23.0 Anion Gap 8 BUN 44 H Creatinine 2.19 H Estim Creat Clear Calc 24.01 Est GFR (MDRD) Af Amer 30 L Est GFR (MDRD) Non-Af 25 L BUN/Creatinine Ratio 20.1 H Glucose 133 H Calcium 8.4 L Urine Color Urine Clarity Urine pH Ur Specific [place] Urine Protein Urine Glucose (UA) Urine Ketones Urine Occult Blood Urine Nitrite Urine Bilirubin Urine Urobilinogen Ur Leukocyte Esterase Urine RBC Urine WBC Ur Squamous Epith Cells Urine Bacteria Urine Mucus POC Glucose 129 H Radiography Diagnostic Testing: Radiology Impression Renal Ultrasound 03/25/21 21:27 IMPRESSION: Subcentimeter right renal cyst, otherwise unremarkable kidneys. Unremarkable urinary bladder. No evidence of hydronephrosis Electronically Signed: Anatoliy Connor DO at 1:15 EDT Tel , Service support , Physical Exam Narrative Physical exam: General: Alert, Oriented x3, Cooperative, appears unwell HEENT: Atraumatic Oral: Moist Mucosa Neck: Supple Lungs: Clear to auscultation Cardiovascular: HS I+II, regular, no murmurs Abdomen: Bowel Sounds Present, Soft, Non Tender Extremities: No edema Skin: No rashes, No breakdown Neurological: Grossly intact Psych/Mental Status: Appropriate Assessment & Plan Assessment/Plan (1) Acute renal failure: QUALIFIERS: Acute renal failure type: unspecified Qualified Code(s): N17.9 - Acute kidney failure, unspecified (2) UTI (urinary tract infection): (3) Pyelonephritis: PLAN: 1. Acute UTI in a patient with recent pyelonephritis, remains about the same CT scan done on 03/04 4 showed mild left hydronephrosis and hydroureter with mild perinephric stranding Renal ultrasound done this morning is unremarkable, no evidence of hydronephrosis Urine cultures are pending, continue on IV ceftriaxone 2. Acute kidney injury on CKD stage III, prerenal secondary to #1, minimally improved Admitted with creatinine of 2.20, creatinine is 2.19 today, continue on IV fluid Continue to hold lisinopril, hydrochlorothiazide, initiate, Bactrim, repeat blood work in a.m. 3. Type II DM, blood sugars relatively controlled, Would hold insulin regimen and continue only with blood glucose checks with insulin sliding scale 4. Hypertension, controlled, will hold hydrochlorothiazide and lisinopril,as well as NSAIDs for now 5. Rest of chronic medical problems are stable Meds reviewed Charges/Coding Visit Charges Inpatient E&M: 26108 Subs Hosp L2
[2021-03-26] MEDS: Acetaminophen 325 MG Tablet 650 MG PO ×2 (09:23→21:20)
[2021-03-26] MEDS: Pravastatin 40 MG Tablet PO ×2 (09:23)
[2021-03-26] MEDS: Enoxaparin 30 MG/0.3 ML Syringe SC (09:23)
--- NOTE | 2021-03-26 10:10 | CASEMGMT ---
Addendum entered by Eusebio Olmedo 03/26/21 11:50: Pt states she manages her own medications and appts and denies need for assistance. She states she used to smoke, but quit about 7 yrs ago. She drinks a wine-cooler Every now and then, but nothing major. Original Note: RN CM MARKETING CONTENT COORDINATOR CM to room to meet with patient for initial transition planning/care coordination assessment. RN DIANA introduced self and role at [facility]. Pt voices understanding and consents to assessment at this time. Pt resting in bed in no distress at this time. Pt is A/O at this time and answers all questions appropriately. Care providers, pharmacy, and demographics verified/updated at this time. PCP: Dr Rabago Specialists: none Preferred Pharmacy: [facility] Insurance: [facility] Prescription Benefit: Yes Living Will/HPOA: States does not have LW or HCPOA . Interested in more information and would like to talk with SW to complete paperwork. Provided information on advanced directives and given Social Service rac card with number to call if chooses in the future to utilize [facility] social work for advanced directive completion in case SW is unable to meet with her prior to discharged. Educated patient that, if patient so chooses, can come back to [facility] and meet with a SW as an outpatient to complete health care advanced directives. Patient expresses understanding. LNOK: Son, Jeramy Romero. [id number], Ann-Marie Romero. Pt agreeable to having Jeramy listed on her demographics for contact, but she does not know his phone number. Living Arrangements: Lives w/her son in mobile home w/3 steps to enter. Independent w/ADL's and IADL's. Son cooks on occasion. Transportation: Pt states she does not drive. JOSEEAnn-Marie, provides transportation--she takes her to her appts and grocery shopping. DME: States has the following DME: Functioning glucometer w/supplies. Pt uses no DME to ambulate. Pt states no need for further DME at this time. HHC/SNF: No history of either. Pt denies needs and no needs identified. Pt wishes to return home and states has no concerns with going home at time of discharge. CM to follow for any discharge planning/needs. Pt voices no concerns/needs at this time. Advised pt to ask for CM if any questions/concerns/needs arise. Voices understanding. PLAN: Home w/discharge plans in place. Brittany MARTINEZ RN CM
--- NOTE | 2021-03-26 10:52 | CASEMGMT ---
Social Work Note SW received referral for advanced directives. SW in to speak with pt. SW introduced self and role at [facility]. Pt states she is not feeling well today, doesn't want to complete documents today. SW provided pt with advanced directives. SW to remain available should pt want to complete documents at a later time. Aida Fleming CONTACT CENTER AGENT, CLINICAL LAB ASSISTANT
[2021-03-26] MEDS: 0.9% Saline Lock 10 ML Syringe IV ×2 (11:30→21:34)
[2021-03-26] MEDS: Ondansetron 4 MG/2 ML Vial IV ×2 (11:30→21:34)
--- NOTE | 2021-03-26 11:41 | EKG12_ITS ---
Test Reason : ARRYTHMIA Blood Pressure : / mmHG Vent. Rate : 081 BPM Atrial Rate : 081 BPM P-R Int : 162 ms QRS Dur : 100 ms QT Int : 386 ms P-R-T Axes : 036 011 049 degrees QTc Int : 448 ms Normal sinus rhythm Nonspecific T wave abnormality Abnormal ECG No previous ECGs available Confirmed by JACQUIE DUNNE, XIMENA ([id number]), web content editor ALICJA DE LA PAZ ([id number]) on 03/28/2021 11:34:18 AM Referred By: BIENVENIDO Confirmed By:XIMENA DHILLON MD
--- NOTE | 2021-03-26 12:05 | RAD_ITS ---
STUDY: X-RAY CHEST REASON FOR EXAM: Female, 55 years old. Shortness of breath. TECHNIQUE: Frontal view of the chest COMPARISON: None. FINDINGS: The lungs are clear. There are no pleural effusions. There is no pneumothorax. The heart is enlarged. The visualized osseous structures are within normal limits. RAD/Chest 1 View (Portable) IMPRESSION: Cardiomegaly. Clear lungs. Electronically Signed: Garry Way MD at 13:14 EDT Tel , Service support ,
[2021-03-26 12:58] LABS: Lactic Acid 0.8 mmol/L (0.4-1.9)
[2021-03-26 13:08] LABS: Troponin-I HS 12.3 pg/mL (3.0-53.7)
[2021-03-26] MEDS: Lidocaine 5% Patch 2 PATCH TOPICAL (13:59)
[2021-03-26 15:02] LABS: Troponin-I HS 11.6 pg/mL (3.0-53.7)
--- NOTE | 2021-03-26 16:31 | CHAPLAIN ---
Type of Pastoral Visit _x__ Initial Visit ___ Follow-up Visit ___ On-call Visit ___ General Patient Visit ___ Spiritual Assessment ___ Family Conference ___ Bereavement ___ Rapid Response ___ Code Blue ___ Other (describe below) Pastoral Care Referral From _x__ Patient ___ Family ___ Nurse ___ Physician ___ Java Consultant ___ Over The Road Driver ___ Other (describe below) Sacrament/Intervention _x__ Active listening ___ Anointing ___ Episcopal ___ Bereavement ___ Communion ___ Vicky exploration ___ ___ Life review _x__ Prayer ___ Reconciliation ___ Sacrament of Sick _x__ Supportive presence ___ Wedding ___ Other (describe below) Pastoral Comments
--- NOTE | 2021-03-26 16:58 | NURSING ---
pt denies any feelings/urgency/need to void. bladder scan done d/t no void since this am. will notify
[2021-03-26 17:06] LABS: Bedside Glucose 149 mg/dL (70-110)
[2021-03-26 17:46] LABS: Allen Test Positive; Base Excess -4 mmol/L (-2 to +2); Bicarbonate 21.5 mmol/L (22-26); Blood Gas Specimen Type ART; O2 Delivery Device Cannula; PO2 55 mmHG (75-100); SITE R Brach; SO2 88 % (95-99); Total Carbon Dioxide 23 mmol/L; pH 7.39 (7.35-7.45)
[2021-03-26] MEDS: 0.9% Normal Saline 1,000 ML 200 ML IV ×2 (18:55→23:53)
[2021-03-26] MEDS: Ipratropium/Albuterol Sulfate 3 ML AMPUL.NEB INHALATION (19:35)
[2021-03-26] MEDS: Ceftriaxone 1 GM/50 ML BAG IV (21:20)
[2021-03-26] MEDS: Fluticasone 0.05% 1 SPRAY NASAL.SRY 2 SPRAY NASAL (21:21)
[2021-03-26] MEDS: Gabapentin 300 MG Capsule PO (21:21)
[2021-03-26 21:36] LABS: Bedside Glucose 126 mg/dL (70-110)
[2021-03-27] VITALS (15 sets, daily range): BP systolic 98–124; BP diastolic 43–72; PULSE 68–99; RESP 16–30; TEMP 36.6–37.3; O2SAT 93–96
[2021-03-27 00:45] LABS: Bedside Glucose 122 mg/dL (70-110)
[2021-03-27] MEDS: Levothyroxine 175 MCG Tablet PO (06:10)
[2021-03-27] MEDS: 0.9% Normal Saline 1,000 ML 200 ML IV ×2 (06:10→10:44)
[2021-03-27] MEDS: Acetaminophen 325 MG Tablet 650 MG PO ×2 (06:12→22:18)
[2021-03-27 06:15] LABS: Bedside Glucose 107 mg/dL (70-110)
[2021-03-27 06:23] LABS: Absolute Lymphocyte Count 1.01 X10^3/uL (0.83-4.51); Absolute Neutrophil Count 7.1 X10^3/uL (2.0-7.7); Basophil# 0.02 X10^3/uL; Basophil% 0.2 % (0-1); Eosinophil# 0.13 X10^3/uL; Eosinophils% 1.4 % (0-5); Hematocrit 36.4 % (37-47); Hemoglobin 11.3 g/dL (12.0-15.0); Lymphocyte # 1.01 X10^3/ul (0.83-4.51); Mean Corpuscular Hgb 27.9 pg (27.0-32.0); Mean Corpuscular Volume 89.9 fL (81-99); Mean Platelet Vol. 10.1 fl (6.2-12.0); Monocyte# 0.86 X10^3/uL; Monocyte% 9.3 % (0-10); NRBC Flagged by Analyzer 0 % (0-5); Neutrophil # 7.11 X10^3/uL (2.7-7.7); Neutrophil % 77.2 % (47-70); Platelet Count 148 K/mm3 (150-450); RBC Distribution Width CV 13.7 % (11.6-14.6); RBC Distribution Width SD 45.2 fl (35.1-43.9); Red Blood Count 4.05 M/mm3 (4.2-5.4); White Blood Count 9.2 K/mm3 (4.4-11.0)
[2021-03-27] MEDS: Ipratropium/Albuterol Sulfate 3 ML AMPUL.NEB INHALATION ×3 (06:42→22:52)
[2021-03-27 06:49] LABS: ALB/GLOB Ratio 0.6 RATIO (0.9-2.4); AST(SGOT) 25 U/L (15-37); Alanine Aminotransfer ALT/SGPT 15 U/L (13-56); Albumin, Serum 2.4 g/dL (3.2-5.0); Alkaline Phosphatase 45 U/L (45-117); Anion Gap 6 (5-15); BUN 33 mg/dL (7-18); BUN/Creat Ratio 23.2 RATIO (10-20); Calcium,Total 7.4 mg/dL (8.5-10.1); Chloride 108 mmol/L (98-107); Creatinine, Serum 1.42 mg/dL (0.55-1.02); EST Glomerular Filtration Rate 41 mL/min (>60); Est Glom Filt Rate - Afr Amer 49 mL/min (>60); Estimated Creatinine Clearance 37.03 ml/min; Globulin 4.3 g/dL (2.2-4.2); Glucose 99 mg/dL (74-106); Potassium 4.1 mmol/L (3.5-5.1); Protein, Total 6.7 g/dL (6.4-8.2); Sodium Level 137 mmol/L (136-145)
[2021-03-27] MEDS: Lidocaine 5% Patch 2 PATCH TOPICAL (08:46)
[2021-03-27] MEDS: Enoxaparin 30 MG/0.3 ML Syringe SC (08:46)
--- NOTE | 2021-03-27 11:20 | PCM.PN.HOSP ---
Subjective Subjective Patient was seen and examined. She feels improved. Her left flank pain is better with the Lidoderm patch. Patient remains orthostatic this morning. Denies any fever or chills. Objective Data Objective Data Vital Signs: Vital Signs Temp Pulse Resp BP Pulse Ox 98.7 F 84 16 98/52 L 93 03/27/21 08:11 03/27/21 08:11 03/27/21 08:11 03/27/21 08:11 03/27/21 08:11 Oxygen Flow Rate (L/min) [At 3 REST with Oxygen] Oxygen Flow Rate (L/min) 2 Oxygen Delivery Method Nasal Cannula Weight: 90.5 kg Body Mass Index (BMI) 34.7 Intake & Output: Intake and Output for Last 24 Hours 03/25/21 03/26/21 03/27/21 23:59 23:59 23:59 Intake Total 550 / 700 5958.33 / 5958.33 2263.33 / 2263.33 Output Total 1700 / 1700 1100 / 1100 Balance 550 / 700 4258.33 / 4258.33 1163.33 / 1163.33 Lab / Micro Data Result Diagrams: 03/27/21 06:04 03/27/21 06:04 Labs: Laboratory Results - last 24 hr 03/26/21 03/26/21 03/26/21 11:11 12:10 12:42 WBC RBC Hgb Hct MCV MCH MCHC RDW Std Deviation RDW Coeff of Catina Plt Count MPV Immature Gran % (Auto) Neut % (Auto) Lymph % (Auto) [place] % (Auto) Eos % (Auto) Baso % (Auto) Absolute Neuts (auto) Absolute Lymphs (auto) Nucleated RBC % Sodium Potassium Chloride Carbon Dioxide Anion Gap BUN Creatinine Estim Creat Clear Calc Est GFR (MDRD) Af Amer Est GFR (MDRD) Non-Af BUN/Creatinine Ratio Glucose Lactic Acid 0.8 Calcium Total Bilirubin AST ALT Alkaline Phosphatase Troponin I High Sens 12.3 Total Protein Albumin Globulin Albumin/Globulin Ratio POC Glucose 122 H 03/26/21 03/26/21 03/26/21 14:32 16:51 18:17 WBC RBC Hgb Hct MCV MCH MCHC RDW Std Deviation RDW Coeff of Catina Plt Count MPV Immature Gran % (Auto) Neut % (Auto) Lymph % (Auto) [place] % (Auto) Eos % (Auto) Baso % (Auto) Absolute Neuts (auto) Absolute Lymphs (auto) Nucleated RBC % Sodium Potassium Chloride Carbon Dioxide Anion Gap BUN Creatinine Estim Creat Clear Calc Est GFR (MDRD) Af Amer Est GFR (MDRD) Non-Af BUN/Creatinine Ratio Glucose Lactic Acid Calcium Total Bilirubin AST ALT Alkaline Phosphatase Troponin I High Sens 11.6 11.0 Total Protein Albumin Globulin Albumin/Globulin Ratio POC Glucose 149 H 03/26/21 03/27/21 03/27/21 21:17 06:04 06:04 WBC 9.2 RBC 4.05 L Hgb 11.3 L Hct 36.4 L MCV 89.9 MCH 27.9 MCHC 31.0 L RDW Std Deviation 45.2 H RDW Coeff of Catina 13.7 Plt Count 148 L MPV 10.1 Immature Gran % (Auto) 0.900 Neut % (Auto) 77.2 H Lymph % (Auto) 11.0 L [place] % (Auto) 9.3 Eos % (Auto) 1.4 Baso % (Auto) 0.2 Absolute Neuts (auto) 7.1 Absolute Lymphs (auto) 1.01 Nucleated RBC % 0 Sodium 137 Potassium 4.1 Chloride 108 H Carbon Dioxide 23.0 Anion Gap 6 BUN 33 H Creatinine 1.42 H Estim Creat Clear Calc 37.03 Est GFR (MDRD) Af Amer 49 L Est GFR (MDRD) Non-Af 41 L BUN/Creatinine Ratio 23.2 H Glucose 99 Lactic Acid Calcium 7.4 L Total Bilirubin 0.40 AST 25 ALT 15 Alkaline Phosphatase 45 Troponin I High Sens Total Protein 6.7 Albumin 2.4 L Globulin 4.3 H Albumin/Globulin Ratio 0.6 L POC Glucose 126 H 03/27/21 06:10 WBC RBC Hgb Hct MCV MCH MCHC RDW Std Deviation RDW Coeff of Catina Plt Count MPV Immature Gran % (Auto) Neut % (Auto) Lymph % (Auto) [place] % (Auto) Eos % (Auto) Baso % (Auto) Absolute Neuts (auto) Absolute Lymphs (auto) Nucleated RBC % Sodium Potassium Chloride Carbon Dioxide Anion Gap BUN Creatinine Estim Creat Clear Calc Est GFR (MDRD) Af Amer Est GFR (MDRD) Non-Af BUN/Creatinine Ratio Glucose Lactic Acid Calcium Total Bilirubin AST ALT Alkaline Phosphatase Troponin I High Sens Total Protein Albumin Globulin Albumin/Globulin Ratio POC Glucose 107 Micro: Microbiology 03/25/21 18:20 Urine, Random Urine Culture - Final Escherichia coli 03/26/21 09:25 Mucosa - Nose SARS-CoV-2 Antigen (Rapid) - Final ABG Data ABG results: ABG 03/26/21 17:40 Specimen Type ART Sample Site R Brach pH 7.39 Bicarbonate Actual 21.5 L Total CO2 23 Base Excess -4 L O2 Saturation 88 L ABG pCO2 36.0 ABG pO2 55 L Gabriel Test Positive O2 Delivery Device Cannula Liter Flow 3.0 Radiography Diagnostic Testing: Radiology Impression Chest X-Ray 03/26/21 12:05 IMPRESSION: Cardiomegaly. Clear lungs. Electronically Signed: Garry Way MD at 13:14 EDT Tel , Service support , Physical Exam Narrative Physical exam: General: Alert, Oriented x3, Cooperative, appears slightly improved HEENT: Atraumatic Oral: Moist Mucosa Neck: Supple Lungs: Clear to auscultation Cardiovascular: HS I+II, regular, no murmurs Abdomen: Bowel Sounds Present, Soft, Non Tender Extremities: No edema Skin: No rashes, No breakdown Neurological: Grossly intact Psych/Mental Status: Appropriate Assessment & Plan Assessment/Plan (1) Acute renal failure: QUALIFIERS: Acute renal failure type: unspecified Qualified Code(s): N17.9 - Acute kidney failure, unspecified (2) UTI (urinary tract infection): (3) Pyelonephritis: PLAN: 1. Acute UTI in a patient with recent pyelonephritis, remains about the same CT scan done on 03/04 4 showed mild left hydronephrosis and hydroureter with mild perinephric stranding Renal ultrasound done this morning is unremarkable, no evidence of hydronephrosis Urine cultures are pending, continue on IV ceftriaxone 2. Acute kidney injury on CKD stage III, prerenal secondary to #1, improving Admitted with creatinine of 2.20, creatinine is 1.42 today, continue on IV fluid Continue to hold lisinopril, hydrochlorothiazide, initiate, Bactrim, repeat blood work in a.m. 3. Orthostatic hypotension secondary to #1 and #2 We will give fluid boluses today, continue on maintenance fluids, recheck in a.m. 4. Type II DM, blood sugars relatively controlled, Would hold insulin regimen and continue only with blood glucose checks with insulin sliding scale 5. Hypertension, controlled, will hold hydrochlorothiazide and lisinopril,as well as NSAIDs for now 6. Rest of chronic medical problems are stable Meds reviewed Charges/Coding Visit Charges Inpatient E&M: 39812 Subs Hosp L2
[2021-03-27] MEDS: 0.9% Saline Lock 10 ML Syringe IV (11:41)
[2021-03-27] MEDS: Ondansetron 4 MG/2 ML Vial IV ×2 (11:41→19:44)
[2021-03-27] MEDS: Insulin Lispro 100 UNIT/ML INSULN.PEN SC ×3 (11:43→22:17)
[2021-03-27 11:56] LABS: Bedside Glucose 163 mg/dL (70-110)
[2021-03-27 12:11] LABS: Urine Sodium 29 mmol/L (Not Establ.)
--- NOTE | 2021-03-27 14:43 | CASEMGMT ---
Social Work Note SW Checked back in with pt regarding advanced directives. Pt states she doens't want to complete documents today. Aida Fleming NEWSPAPER SUBSCRIPTION SOLICITOR, PROOFER APPRENTICE
--- NOTE | 2021-03-27 15:16 | PCM.CONS.R ---
Assessment & Plan Assessment/Plan (1) Acute renal failure: QUALIFIERS: Acute renal failure type: unspecified Qualified Code(s): N17.9 - Acute kidney failure, unspecified PLAN: baseline creatinine in the past was close to normal. admitted with creatinine of 2.2. likely related to pyelo. CT abd last admit with left sided hydronephrosis. repeat renal US this admit does not show hydronephrosis. UA is dirty consistent with UTI. likely related to sepsis. Cr is better today. will arrange follow up as outpatient. was on losartan and thiazide prior to admit. hold at ca. (2) Renal colic: PLAN: last admit. repeat renal US without any hydronephrosis (3) UTI (urinary tract infection): PLAN: management as per primary. Dw hospitalist HPI Consult Data Date of Consult: 03/27/21 HPI Narrative HPI Narrative: BETTY AGARWAL, is a 55 F who presents to hospital with JOSIE, UTI. she was recently admitted to hospital with flank pain, was diagnosed with UTI, left sided hydronephrosis. was treated medically and discharged home. came back with same complaints. sustained JOSIE this admit. cr was 2.2 yesterday. today feels better. denies any complaints. no dysuria. [facility] Medical History Hypercholesteremia Hypertension Hypothyroid Kidney stones Migraines Type 2 diabetes mellitus Home Medications fluticasone propionate 2 spray NASAL QHS 05/24/15 [History Last Taken 03/24/21] hydrochlorothiazide 12.5 mg PO DAILY 05/24/15 [History Last Taken 03/24/21] insulin lispro [Humalog] 20 unit SQ TID 05/24/15 [History Last Taken 03/24/21] pravastatin 40 mg PO DAILY 05/24/15 [History Last Taken 03/24/21] insulin glargine [Basaglar Kwikpen U-100] 72 unit SQ DAILY 01/15/18 [History Last Taken 03/24/21] lisinopril 2.5 mg PO DAILY 03/17/21 [History Last Taken 03/24/21] sulfamethoxazole-trimethoprim [Bactrim DS] 1 tab PO BID #14 tab 03/17/21 [Rx Last Taken 03/24/21] dulaglutide [Trulicity] 1.5 mg SUBCUT JOHNSON 03/25/21 [History Last Taken 03/23/21] estradiol 3 g VAGINAL .2X/WEEK 03/25/21 [History Last Taken Unknown] fenofibrate 160 mg PO DAILY 03/25/21 [History Last Taken 03/24/21] gabapentin 300 mg PO QHS 03/25/21 [History Last Taken 03/24/21] levothyroxine 175 mcg PO DAILY 03/25/21 [History Last Taken 03/24/21] meloxicam 15 mg PO DAILY PRN 03/25/21 [History Last Taken Unknown] omega-3 fatty acids-vitamin E [Fish Oil] 1 cap PO DAILY 03/25/21 [History Last Taken 03/24/21] vitamin E 400 unit PO DAILY 03/25/21 [History Last Taken 03/24/21] Allergy/AdvReac Type Severity Reaction Status Date / Time metformin AdvReac Diarrhea Verified 03/17/21 16:11 oxycodone [From Percocet] AdvReac upset Verified 03/25/21 20:01 stomach/off balance Surgical History History of appendectomy Previous section Social History Smoking Status: Former smoker ROS ROS Narrative Negative except HPI Physical Exam Narrative Alert awake oriented x 3 no obvious distress no pallor no icterus no JVD s1s2 no murmurs lungs clear abdomen soft no organomegaly no edema no cyanosis Lab / Micro Data Result Diagrams: 03/27/21 06:04 03/27/21 06:04 Labs: Laboratory Results - last 24 hr 03/26/21 03/26/21 03/26/21 11:11 16:51 18:17 WBC RBC Hgb Hct MCV MCH MCHC RDW Std Deviation RDW Coeff of Catina Plt Count MPV Immature Gran % (Auto) Neut % (Auto) Lymph % (Auto) [place] % (Auto) Eos % (Auto) Baso % (Auto) Absolute Neuts (auto) Absolute Lymphs (auto) Nucleated RBC % Sodium Potassium Chloride Carbon Dioxide Anion Gap BUN Creatinine Estim Creat Clear Calc Est GFR (MDRD) Af Amer Est GFR (MDRD) Non-Af BUN/Creatinine Ratio Glucose Calcium Total Bilirubin AST ALT Alkaline Phosphatase Troponin I High Sens 11.0 Total Protein Albumin Globulin Albumin/Globulin Ratio Ur Random Sodium Urine Creatinine POC Glucose 122 H 149 H 03/26/21 03/27/21 03/27/21 21:17 06:04 06:04 WBC 9.2 RBC 4.05 L Hgb 11.3 L Hct 36.4 L MCV 89.9 MCH 27.9 MCHC 31.0 L RDW Std Deviation 45.2 H RDW Coeff of Catina 13.7 Plt Count 148 L MPV 10.1 Immature Gran % (Auto) 0.900 Neut % (Auto) 77.2 H Lymph % (Auto) 11.0 L [place] % (Auto) 9.3 Eos % (Auto) 1.4 Baso % (Auto) 0.2 Absolute Neuts (auto) 7.1 Absolute Lymphs (auto) 1.01 Nucleated RBC % 0 Sodium 137 Potassium 4.1 Chloride 108 H Carbon Dioxide 23.0 Anion Gap 6 BUN 33 H Creatinine 1.42 H Estim Creat Clear Calc 37.03 Est GFR (MDRD) Af Amer 49 L Est GFR (MDRD) Non-Af 41 L BUN/Creatinine Ratio 23.2 H Glucose 99 Calcium 7.4 L Total Bilirubin 0.40 AST 25 ALT 15 Alkaline Phosphatase 45 Troponin I High Sens Total Protein 6.7 Albumin 2.4 L Globulin 4.3 H Albumin/Globulin Ratio 0.6 L Ur Random Sodium Urine Creatinine POC Glucose 126 H 03/27/21 03/27/21 03/27/21 06:10 11:41 11:50 WBC RBC Hgb Hct MCV MCH MCHC RDW Std Deviation RDW Coeff of Catina Plt Count MPV Immature Gran % (Auto) Neut % (Auto) Lymph % (Auto) [place] % (Auto) Eos % (Auto) Baso % (Auto) Absolute Neuts (auto) Absolute Lymphs (auto) Nucleated RBC % Sodium Potassium Chloride Carbon Dioxide Anion Gap BUN Creatinine Estim Creat Clear Calc Est GFR (MDRD) Af Amer Est GFR (MDRD) Non-Af BUN/Creatinine Ratio Glucose Calcium Total Bilirubin AST ALT Alkaline Phosphatase Troponin I High Sens Total Protein Albumin Globulin Albumin/Globulin Ratio Ur Random Sodium 29 Urine Creatinine 41.40 POC Glucose 107 163 H Micro: Microbiology 03/25/21 18:20 Urine Culture - Final Urine, Random Escherichia coli ABG Data ABG results: ABG 03/26/21 17:40 Specimen Type ART Sample Site R Brach pH 7.39 Bicarbonate Actual 21.5 L Total CO2 23 Base Excess -4 L O2 Saturation 88 L ABG pCO2 36.0 ABG pO2 55 L Gabriel Test Positive O2 Delivery Device Cannula Liter Flow 3.0
[2021-03-27 16:25] LABS: Bedside Glucose 224 mg/dL (70-110)
[2021-03-27] MEDS: 0.9% Normal Saline 1,000 ML 100 ML IV (18:31)
[2021-03-27] MEDS: Magnesium Hydroxide 30 ML UDC PO (20:33)
[2021-03-27] MEDS: Ceftriaxone 1 GM/50 ML BAG IV (22:17)
[2021-03-27] MEDS: Gabapentin 300 MG Capsule PO (22:18)
[2021-03-27 22:25] LABS: Bedside Glucose 185 mg/dL (70-110)
[2021-03-27] MEDS: Morphine 2 MG/ML Syringe 1 MG IV (23:23)
[2021-03-27] MEDS: Senna/Docusate Sodium 1 Tablet PO (23:24)
[2021-03-28] VITALS (19 sets, daily range): BP systolic 104–142; BP diastolic 53–68; PULSE 76–97; RESP 16–25; TEMP 36.4–37.1; O2SAT 89–98
[2021-03-28] MEDS: 0.9% Normal Saline 1,000 ML 100 ML IV (05:58)
[2021-03-28] MEDS: Levothyroxine 175 MCG Tablet PO (05:58)
[2021-03-28] MEDS: Acetaminophen 325 MG Tablet 650 MG PO ×2 (06:23→23:40)
[2021-03-28 06:30] LABS: Bedside Glucose 128 mg/dL (70-110)
[2021-03-28 06:59] LABS: Absolute Lymphocyte Count 0.92 X10^3/uL (0.83-4.51); Absolute Neutrophil Count 9.6 X10^3/uL (2.0-7.7); Basophil# 0.02 X10^3/uL; Basophil% 0.2 % (0-1); Eosinophil# 0.02 X10^3/uL; Eosinophils% 0.2 % (0-5); Hematocrit 34.6 % (37-47); Hemoglobin 11.2 g/dL (12.0-15.0); Lymphocyte # 0.92 X10^3/ul (0.83-4.51); Mean Corp Hgb Conc 32.4 g/dL (32-36); Mean Corpuscular Hgb 28.2 pg (27.0-32.0); Mean Corpuscular Volume 87.2 fL (81-99); Mean Platelet Vol. 9.6 fl (6.2-12.0); Monocyte% 7.8 % (0-10); NRBC Flagged by Analyzer 0 % (0-5); Neutrophil # 9.58 X10^3/uL (2.7-7.7); Neutrophil % 82.9 % (47-70); Platelet Count 151 K/mm3 (150-450); RBC Distribution Width CV 13.4 % (11.6-14.6); RBC Distribution Width SD 42.7 fl (35.1-43.9); Red Blood Count 3.97 M/mm3 (4.2-5.4); White Blood Count 11.5 K/mm3 (4.4-11.0)
[2021-03-28] MEDS: Ipratropium/Albuterol Sulfate 3 ML AMPUL.NEB INHALATION ×4 (07:14→19:09)
[2021-03-28 07:30] LABS: ALB/GLOB Ratio 0.6 RATIO (0.9-2.4); AST(SGOT) 27 U/L (15-37); Alanine Aminotransfer ALT/SGPT 17 U/L (13-56); Albumin, Serum 2.4 g/dL (3.2-5.0); Alkaline Phosphatase 52 U/L (45-117); Anion Gap 6 (5-15); BUN 15 mg/dL (7-18); BUN/Creat Ratio 15.4 RATIO (10-20); Calcium,Total 7.6 mg/dL (8.5-10.1); Chloride 108 mmol/L (98-107); Creatinine, Serum 0.98 mg/dL (0.55-1.02); EST Glomerular Filtration Rate 63 mL/min (>60); Est Glom Filt Rate - Afr Amer 76 mL/min (>60); Estimated Creatinine Clearance 53.66 ml/min; Globulin 4.1 g/dL (2.2-4.2); Glucose 129 mg/dL (74-106); Protein, Total 6.5 g/dL (6.4-8.2); Sodium Level 139 mmol/L (136-145)
[2021-03-28] MEDS: Lidocaine 5% Patch 2 PATCH TOPICAL (08:24)
[2021-03-28] MEDS: Pravastatin 40 MG Tablet PO (08:25)
[2021-03-28] MEDS: Enoxaparin 30 MG/0.3 ML Syringe SC (08:25)
[2021-03-28] MEDS: Insulin Lispro 100 UNIT/ML INSULN.PEN SC ×3 (12:07→21:22)
--- NOTE | 2021-03-28 12:37 | PN.HOSP_ITS ---
Subjective Subjective Patient was seen and examined. She feels slightly better. She had a bowel movement yesterday. She has less nauseous. He appears slightly swollen. Objective Data Objective Data Vital Signs: Vital Signs Temp Pulse Resp BP Pulse Ox 98.6 F 82 24 H 104/53 L 91 03/28/21 05:53 03/28/21 11:13 03/28/21 11:13 03/28/21 05:53 03/28/21 11:13 Oxygen Flow Rate (L/min) [At 3 REST with Oxygen] Oxygen Flow Rate (L/min) 2 Oxygen Delivery Method Nasal Cannula Weight: 90.5 kg Body Mass Index (BMI) 34.7 Intake & Output: Intake and Output for Last 24 Hours 03/26/21 03/27/21 03/28/21 23:59 23:59 23:59 Intake Total 5958.33 / 5958.33 4113.33 / 4113.33 1693.33 / 1693.33 Output Total 1700 / 1700 3425 / 3425 1600 / 1600 Balance 4258.33 / 4258.33 688.33 / 688.33 93.33 / 93.33 Lab / Micro Data Result Diagrams: 03/28/21 06:45 03/28/21 06:45 Labs: Laboratory Results - last 24 hr 03/27/21 03/27/21 03/28/21 16:08 22:16 06:26 WBC RBC Hgb Hct MCV MCH MCHC RDW Std Deviation RDW Coeff of Catina Plt Count MPV Immature Gran % (Auto) Neut % (Auto) Lymph % (Auto) [place] % (Auto) Eos % (Auto) Baso % (Auto) Absolute Neuts (auto) Absolute Lymphs (auto) Nucleated RBC % Sodium Potassium Chloride Carbon Dioxide Anion Gap BUN Creatinine Estim Creat Clear Calc Est GFR (MDRD) Af Amer Est GFR (MDRD) Non-Af BUN/Creatinine Ratio Glucose Calcium Total Bilirubin AST ALT Alkaline Phosphatase Total Protein Albumin Globulin Albumin/Globulin Ratio POC Glucose 224 H 185 H 128 H 03/28/21 03/28/21 06:45 06:45 WBC 11.5 H RBC 3.97 L Hgb 11.2 L Hct 34.6 L MCV 87.2 MCH 28.2 MCHC 32.4 RDW Std Deviation 42.7 RDW Coeff of Catina 13.4 Plt Count 151 MPV 9.6 Immature Gran % (Auto) 0.900 Neut % (Auto) 82.9 H Lymph % (Auto) 8.0 L [place] % (Auto) 7.8 Eos % (Auto) 0.2 Baso % (Auto) 0.2 Absolute Neuts (auto) 9.6 H Absolute Lymphs (auto) 0.92 Nucleated RBC % 0 Sodium 139 Potassium 4.0 Chloride 108 H Carbon Dioxide 25.0 Anion Gap 6 BUN 15 Creatinine 0.98 Estim Creat Clear Calc 53.66 Est GFR (MDRD) Af Amer 76 Est GFR (MDRD) Non-Af 63 BUN/Creatinine Ratio 15.4 Glucose 129 H Calcium 7.6 L Total Bilirubin 0.30 AST 27 ALT 17 Alkaline Phosphatase 52 Total Protein 6.5 Albumin 2.4 L Globulin 4.1 Albumin/Globulin Ratio 0.6 L POC Glucose Micro: Microbiology 03/25/21 18:20 Urine, Random Urine Culture - Final Escherichia coli 03/26/21 09:25 Mucosa - Nose SARS-CoV-2 Antigen (Rapid) - Final Physical Exam Narrative Physical exam: General: Alert, Oriented x3, Cooperative, appears comfortable, slight generalized edema HEENT: Atraumatic Oral: Moist Mucosa Neck: Supple Lungs: Diminished air entry, no crackles heard Cardiovascular: HS I+II, regular, no murmurs Abdomen: Bowel Sounds Present, Soft, Non Tender Extremities: Bilateral pedal edema +1 Skin: No rashes, No breakdown Neurological: Grossly intact Psych/Mental Status: Appropriate Assessment & Plan Assessment/Plan (1) Acute renal failure: QUALIFIERS: Acute renal failure type: unspecified Qualified Code(s): N17.9 - Acute kidney failure, unspecified (2) UTI (urinary tract infection): (3) Pyelonephritis: PLAN: 1. Acute E. coli UTI in a patient with recent pyelonephritis, remains about the same CT scan done on 03/04 4 showed mild left hydronephrosis and hydroureter with mild perinephric stranding Renal ultrasound done this morning is unremarkable, no evidence of hydronephrosis Urine cultures grew pansensitive E. coli, continue on IV ceftriaxone 2. Acute kidney injury on CKD stage III, prerenal secondary to #1, cough, back to baseline Admitted with creatinine of 2.20, creatinine is 0.98 today, Will DC IV fluids Continue to hold lisinopril, hydrochlorothiazide, initiate, Bactrim, repeat blood work in a.m. 3. Orthostatic hypotension secondary to #1 and #2, resolved 4. Type II DM, blood sugars relatively controlled, Would continue to hold insulin regimen and continue only with blood glucose checks with insulin sliding scale 5. Hypertension, controlled, will hold hydrochlorothiazide and lisinopril,as well as NSAIDs for now 6. Rest of chronic medical problems are stable Meds reviewed Charges/Coding Visit Charges Inpatient E&M: 45157 Subs Hosp L2
[2021-03-28] MEDS: Calcium Carbonate 500 MG Tablet PO ×2 (14:35→23:38)
--- NOTE | 2021-03-28 14:51 | CASEMGMT ---
RN CM in to pt room to discuss therapy options for pt as additional therapy recommended. Discussed home vs outpt therapy. Pt states she does not feel that this is needed at this time. She states that her sister in law is always with her and takes her to get groceries. She states she is a little weaker since being in the hospital but does not feel therapy is necessary. Pt aware to ask for correctional case records supervisor if she should change her mind, she verbalizes understanding.
--- NOTE | 2021-03-28 15:15 | CASEMGMT ---
Social Work Note SW met with pt again regarding advanced directives. Pt states her sister in law is helping her with the documents, denied wanting to complete documents at this time. Aida Fleming SHIRT IRONER SUPERVISOR, SERVICENOW ADMINISTRATOR DEVELOPER
[2021-03-28 16:30] LABS: Bedside Glucose 232 mg/dL (70-110)
--- NOTE | 2021-03-28 17:17 | PN.RENAL_ITS ---
Subjective Subjective no new events Objective Data Objective Data Vital Signs: Vital Signs Temp Pulse Resp BP Pulse Ox 98.0 F 79 18 142/64 H 93 03/28/21 16:05 03/28/21 16:05 03/28/21 16:05 03/28/21 16:05 03/28/21 16:05 Oxygen Flow Rate (L/min) [At 3 REST with Oxygen] Oxygen Flow Rate (L/min) 4 Oxygen Delivery Method Nasal Cannula Weight: 90.5 kg Body Mass Index (BMI) 34.7 Intake & Output: Intake and Output for Last 24 Hours 03/26/21 03/27/21 03/28/21 23:59 23:59 23:59 Intake Total 5958.33 / 5958.33 4113.33 / 4113.33 2193.33 / 2193.33 Output Total 1700 / 1700 3425 / 3425 1999 / 1999 Balance 4258.33 / 4258.33 688.33 / 688.33 193.33 / 193.33 Lab / Micro Data Result Diagrams: 03/28/21 06:45 03/28/21 06:45 Labs: Laboratory Results - last 24 hr 03/27/21 03/28/21 03/28/21 22:16 06:26 06:45 WBC 11.5 H RBC 3.97 L Hgb 11.2 L Hct 34.6 L MCV 87.2 MCH 28.2 MCHC 32.4 RDW Std Deviation 42.7 RDW Coeff of Catina 13.4 Plt Count 151 MPV 9.6 Immature Gran % (Auto) 0.900 Neut % (Auto) 82.9 H Lymph % (Auto) 8.0 L [place] % (Auto) 7.8 Eos % (Auto) 0.2 Baso % (Auto) 0.2 Absolute Neuts (auto) 9.6 H Absolute Lymphs (auto) 0.92 Nucleated RBC % 0 Sodium Potassium Chloride Carbon Dioxide Anion Gap BUN Creatinine Estim Creat Clear Calc Est GFR (MDRD) Af Amer Est GFR (MDRD) Non-Af BUN/Creatinine Ratio Glucose Calcium Total Bilirubin AST ALT Alkaline Phosphatase Total Protein Albumin Globulin Albumin/Globulin Ratio POC Glucose 185 H 128 H 03/28/21 03/28/21 06:45 16:23 WBC RBC Hgb Hct MCV MCH MCHC RDW Std Deviation RDW Coeff of Catina Plt Count MPV Immature Gran % (Auto) Neut % (Auto) Lymph % (Auto) [place] % (Auto) Eos % (Auto) Baso % (Auto) Absolute Neuts (auto) Absolute Lymphs (auto) Nucleated RBC % Sodium 139 Potassium 4.0 Chloride 108 H Carbon Dioxide 25.0 Anion Gap 6 BUN 15 Creatinine 0.98 Estim Creat Clear Calc 53.66 Est GFR (MDRD) Af Amer 76 Est GFR (MDRD) Non-Af 63 BUN/Creatinine Ratio 15.4 Glucose 129 H Calcium 7.6 L Total Bilirubin 0.30 AST 27 ALT 17 Alkaline Phosphatase 52 Total Protein 6.5 Albumin 2.4 L Globulin 4.1 Albumin/Globulin Ratio 0.6 L POC Glucose 232 H Micro: Microbiology 03/25/21 18:20 Urine, Random Urine Culture - Final Escherichia coli 03/26/21 09:25 Mucosa - Nose SARS-CoV-2 Antigen (Rapid) - Final Physical Exam Narrative Alert awake oriented x 3 no obvious distress no pallor no icterus no JVD s1s2 no murmurs lungs clear abdomen soft no organomegaly no edema no cyanosis Assessment & Plan Assessment/Plan (1) Acute renal failure: QUALIFIERS: Acute renal failure type: unspecified Qualified Code(s): N17.9 - Acute kidney failure, unspecified PLAN: baseline creatinine in the past was close to normal. admitted with creatinine of 2.2. likely related to pyelo. CT abd last admit with left sided hydronephrosis. repeat renal US this admit does not show hydronephrosis. UA is dirty consistent with UTI. likely related to sepsis. Cr is better today. will arrange follow up as outpatient. was on losartan and thiazide prior to admit. hold at ut. (2) Renal colic: PLAN: last admit. repeat renal US without any hydronephrosis (3) UTI (urinary tract infection): PLAN: management as per primary. Dw hospitalist
[2021-03-28] MEDS: Fluticasone 0.05% 1 SPRAY NASAL.SRY 2 SPRAY NASAL (21:22)
[2021-03-28] MEDS: Gabapentin 300 MG Capsule PO (21:23)
[2021-03-28] MEDS: Ceftriaxone 1 GM/50 ML BAG IV (21:37)
[2021-03-28 22:10] LABS: Bedside Glucose 201 mg/dL (70-110)
[2021-03-29] VITALS (14 sets, daily range): BP systolic 103–125; BP diastolic 53–91; PULSE 69–85; RESP 16–20; TEMP 36.6–37; O2SAT 93–97
[2021-03-29 00:36] LABS: Bedside Glucose 203 mg/dL (70-110)
[2021-03-29] MEDS: Levothyroxine 175 MCG Tablet PO (06:38)
[2021-03-29 06:46] LABS: Bedside Glucose 127 mg/dL (70-110)
[2021-03-29] MEDS: Ipratropium/Albuterol Sulfate 3 ML AMPUL.NEB INHALATION ×4 (07:01→19:40)
[2021-03-29] MEDS: Acetaminophen 325 MG Tablet 650 MG PO ×2 (07:13→21:44)
[2021-03-29 08:48] LABS: Absolute Lymphocyte Count 1.08 X10^3/uL (0.83-4.51); Basophil# 0.01 X10^3/uL; Basophil% 0.1 % (0-1); Eosinophil# 0.19 X10^3/uL; Eosinophils% 2.4 % (0-5); Hematocrit 34.8 % (37-47); Lymphocyte # 1.08 X10^3/ul (0.83-4.51); Lymphocyte % 13.8 % (19-41); Mean Corp Hgb Conc 31.6 g/dL (32-36); Mean Corpuscular Hgb 27.8 pg (27.0-32.0); Mean Corpuscular Volume 88.1 fL (81-99); Mean Platelet Vol. 10.1 fl (6.2-12.0); Monocyte% 6.4 % (0-10); NRBC Flagged by Analyzer 0 % (0-5); Neutrophil # 5.98 X10^3/uL (2.7-7.7); Neutrophil % 76.5 % (47-70); Platelet Count 172 K/mm3 (150-450); RBC Distribution Width CV 13.6 % (11.6-14.6); RBC Distribution Width SD 43.8 fl (35.1-43.9); Red Blood Count 3.95 M/mm3 (4.2-5.4); White Blood Count 7.8 K/mm3 (4.4-11.0)
[2021-03-29 08:59] LABS: ALB/GLOB Ratio 0.6 RATIO (0.9-2.4); AST(SGOT) 21 U/L (15-37); Alanine Aminotransfer ALT/SGPT 17 U/L (13-56); Albumin, Serum 2.4 g/dL (3.2-5.0); Alkaline Phosphatase 54 U/L (45-117); Anion Gap 7 (5-15); BUN 12 mg/dL (7-18); BUN/Creat Ratio 15.7 RATIO (10-20); Chloride 109 mmol/L (98-107); Creatinine, Serum 0.77 mg/dL (0.55-1.02); EST Glomerular Filtration Rate 83 mL/min (>60); Est Glom Filt Rate - Afr Amer 101 mL/min (>60); Estimated Creatinine Clearance 68.29 ml/min; Glucose 129 mg/dL (74-106); Potassium 3.9 mmol/L (3.5-5.1); Protein, Total 6.4 g/dL (6.4-8.2); Sodium Level 141 mmol/L (136-145)
[2021-03-29] MEDS: Pravastatin 40 MG Tablet PO (09:40)
[2021-03-29] MEDS: Enoxaparin 40 MG/0.4 ML Syringe SC (09:40)
[2021-03-29] MEDS: Lidocaine 5% Patch 2 PATCH TOPICAL (09:41)
[2021-03-29] MEDS: Insulin Lispro 100 UNIT/ML INSULN.PEN SC ×3 (10:51→21:45)
[2021-03-29 11:16] LABS: Bedside Glucose 213 mg/dL (70-110)
--- NOTE | 2021-03-29 14:22 | PN.HOSP_ITS ---
Subjective Subjective Patient was seen and examined. Denied any new complaints. She is on 3 L of oxygen Objective Data Objective Data Vital Signs: Vital Signs Temp Pulse Resp BP Pulse Ox 97.8 F 71 16 103/57 L 94 03/29/21 08:18 03/29/21 14:03 03/29/21 14:03 03/29/21 08:18 03/29/21 10:06 Oxygen Flow Rate (L/min) [At 3 REST with Oxygen] Oxygen Flow Rate (L/min) 3 Oxygen Delivery Method Nasal Cannula Weight: 90.5 kg Body Mass Index (BMI) 34.7 Intake & Output: Intake and Output for Last 24 Hours 03/27/21 03/28/21 03/29/21 23:59 23:59 23:59 Intake Total 4113.33 / 4113.33 2643.33 / 2643.33 350 / 350 Output Total 3425 / 3425 1999 / 1999 600 / 600 Balance 688.33 / 688.33 643.33 / 643.33 -250 / -250 Lab / Micro Data Result Diagrams: 03/29/21 08:22 03/29/21 08:22 Labs: Laboratory Results - last 24 hr 03/28/21 03/28/21 03/28/21 10:49 16:23 21:14 WBC RBC Hgb Hct MCV MCH MCHC RDW Std Deviation RDW Coeff of Catina Plt Count MPV Immature Gran % (Auto) Neut % (Auto) Lymph % (Auto) [place] % (Auto) Eos % (Auto) Baso % (Auto) Absolute Neuts (auto) Absolute Lymphs (auto) Nucleated RBC % Sodium Potassium Chloride Carbon Dioxide Anion Gap BUN Creatinine Estim Creat Clear Calc Est GFR (MDRD) Af Amer Est GFR (MDRD) Non-Af BUN/Creatinine Ratio Glucose Calcium Total Bilirubin AST ALT Alkaline Phosphatase Total Protein Albumin Globulin Albumin/Globulin Ratio POC Glucose 203 H 232 H 201 H 03/29/21 03/29/21 03/29/21 06:38 08:22 08:22 WBC 7.8 RBC 3.95 L Hgb 11.0 L Hct 34.8 L MCV 88.1 MCH 27.8 MCHC 31.6 L RDW Std Deviation 43.8 RDW Coeff of Catina 13.6 Plt Count 172 MPV 10.1 Immature Gran % (Auto) 0.800 Neut % (Auto) 76.5 H Lymph % (Auto) 13.8 L [place] % (Auto) 6.4 Eos % (Auto) 2.4 Baso % (Auto) 0.1 Absolute Neuts (auto) 6.0 Absolute Lymphs (auto) 1.08 Nucleated RBC % 0 Sodium 141 Potassium 3.9 Chloride 109 H Carbon Dioxide 25.0 Anion Gap 7 BUN 12 Creatinine 0.77 Estim Creat Clear Calc 68.29 Est GFR (MDRD) Af Amer 101 Est GFR (MDRD) Non-Af 83 BUN/Creatinine Ratio 15.7 Glucose 129 H Calcium 8.0 L Total Bilirubin 0.20 AST 21 ALT 17 Alkaline Phosphatase 54 Total Protein 6.4 Albumin 2.4 L Globulin 4.0 Albumin/Globulin Ratio 0.6 L POC Glucose 127 H 03/29/21 10:49 WBC RBC Hgb Hct MCV MCH MCHC RDW Std Deviation RDW Coeff of Catina Plt Count MPV Immature Gran % (Auto) Neut % (Auto) Lymph % (Auto) [place] % (Auto) Eos % (Auto) Baso % (Auto) Absolute Neuts (auto) Absolute Lymphs (auto) Nucleated RBC % Sodium Potassium Chloride Carbon Dioxide Anion Gap BUN Creatinine Estim Creat Clear Calc Est GFR (MDRD) Af Amer Est GFR (MDRD) Non-Af BUN/Creatinine Ratio Glucose Calcium Total Bilirubin AST ALT Alkaline Phosphatase Total Protein Albumin Globulin Albumin/Globulin Ratio POC Glucose 213 H Micro: Microbiology 03/25/21 18:20 Urine, Random Urine Culture - Final Escherichia coli 03/26/21 09:25 Mucosa - Nose SARS-CoV-2 Antigen (Rapid) - Final Physical Exam Narrative Physical exam: General: Alert, Oriented x3, Cooperative, appears comfortable, slight generalized edema HEENT: Atraumatic Oral: Moist Mucosa Neck: Supple Lungs: Diminished air entry, no crackles heard Cardiovascular: HS I+II, regular, no murmurs Abdomen: Bowel Sounds Present, Soft, Non Tender Extremities: Bilateral pedal edema +1 Skin: No rashes, No breakdown Neurological: Grossly intact Psych/Mental Status: Appropriate Assessment & Plan Assessment/Plan (1) Acute renal failure: QUALIFIERS: Acute renal failure type: unspecified Qualified Code(s): N17.9 - Acute kidney failure, unspecified (2) UTI (urinary tract infection): (3) Pyelonephritis: PLAN: 1. Acute E. coli UTI in a patient with recent pyelonephritis, remains about the same CT scan done on 03/04 4 showed mild left hydronephrosis and hydroureter with mild perinephric stranding Renal ultrasound was unremarkable; no evidence of hydronephrosis Urine cultures grew pansensitive E. coli Switch to p.o. Levaquin 2. Acute kidney injury on CKD stage III, prerenal secondary to #1, resolved Creatinine is back to baseline Continue to hold lisinopril, hydrochlorothiazide, initiate, Bactrim, repeat blood work in a.m. 3. Orthostatic hypotension secondary to #1 and #2, resolved 4. Type II DM, blood sugars relatively controlled, Would continue to hold insulin regimen and continue only with blood glucose checks with insulin sliding scale Will resume back on home insulin regimen when sugars remain stable 5. Hypertension, controlled, will hold hydrochlorothiazide and lisinopril,as well as NSAIDs for now 6. Rest of chronic medical problems are stable Meds reviewed Charges/Coding Visit Charges Inpatient E&M: 14709 Subs Hosp L2
[2021-03-29] MEDS: Furosemide 40 MG Tablet PO (14:59)
[2021-03-29] MEDS: Calcium Carbonate 500 MG Tablet PO ×2 (15:04→21:44)
[2021-03-29 16:25] LABS: Bedside Glucose 195 mg/dL (70-110)
[2021-03-29] MEDS: Fluticasone 0.05% 1 SPRAY NASAL.SRY 2 SPRAY NASAL (21:46)
[2021-03-29] MEDS: Gabapentin 300 MG Capsule PO (21:46)
[2021-03-29 21:55] LABS: Bedside Glucose 183 mg/dL (70-110)
[2021-03-30] VITALS: PULSE 73
[2021-03-30 02:17] VITALS: BP 113/61; PULSE 70; RESP 18; TEMP 36.9; O2SAT 97
[2021-03-30 04:00] VITALS: PULSE 67
[2021-03-30 05:36] LABS: Absolute Lymphocyte Count 1.16 X10^3/uL (0.83-4.51); Absolute Neutrophil Count 5.2 X10^3/uL (2.0-7.7); Basophil# 0.02 X10^3/uL; Basophil% 0.3 % (0-1); Eosinophil# 0.35 X10^3/uL; Eosinophils% 4.8 % (0-5); Hematocrit 35.5 % (37-47); Hemoglobin 11.5 g/dL (12.0-15.0); Lymphocyte # 1.16 X10^3/ul (0.83-4.51); Lymphocyte % 15.9 % (19-41); Mean Corp Hgb Conc 32.4 g/dL (32-36); Mean Corpuscular Hgb 28.3 pg (27.0-32.0); Mean Corpuscular Volume 87.4 fL (81-99); Mean Platelet Vol. 9.7 fl (6.2-12.0); Monocyte# 0.54 X10^3/uL; Monocyte% 7.4 % (0-10); NRBC Flagged by Analyzer 0 % (0-5); Neutrophil # 5.18 X10^3/uL (2.7-7.7); Neutrophil % 70.8 % (47-70); Platelet Count 198 K/mm3 (150-450); RBC Distribution Width CV 13.4 % (11.6-14.6); RBC Distribution Width SD 42.6 fl (35.1-43.9); Red Blood Count 4.06 M/mm3 (4.2-5.4); White Blood Count 7.3 K/mm3 (4.4-11.0)
[2021-03-30 06:08] LABS: ALB/GLOB Ratio 0.6 RATIO (0.9-2.4); AST(SGOT) 20 U/L (15-37); Alanine Aminotransfer ALT/SGPT 21 U/L (13-56); Albumin, Serum 2.6 g/dL (3.2-5.0); Alkaline Phosphatase 60 U/L (45-117); Anion Gap 3 (5-15); BUN 14 mg/dL (7-18); BUN/Creat Ratio 16.4 RATIO (10-20); Calcium,Total 8.3 mg/dL (8.5-10.1); Chloride 106 mmol/L (98-107); Creatinine, Serum 0.86 mg/dL (0.55-1.02); EST Glomerular Filtration Rate 73 mL/min (>60); Est Glom Filt Rate - Afr Amer 88 mL/min (>60); Estimated Creatinine Clearance 61.14 ml/min; Globulin 4.3 g/dL (2.2-4.2); Glucose 160 mg/dL (74-106); Potassium 3.9 mmol/L (3.5-5.1); Protein, Total 6.9 g/dL (6.4-8.2); Sodium Level 138 mmol/L (136-145)
[2021-03-30] MEDS: Insulin Lispro 100 UNIT/ML INSULN.PEN SC ×2 (06:27→11:38)
[2021-03-30] MEDS: levoFLOXacin 500 MG Tablet PO (06:27)
[2021-03-30] MEDS: Levothyroxine 175 MCG Tablet PO (06:28)
[2021-03-30 06:45] LABS: Bedside Glucose 159 mg/dL (70-110)
[2021-03-30 07:31] VITALS: PULSE 67; RESP 16; O2SAT 96
[2021-03-30] MEDS: Ipratropium/Albuterol Sulfate 3 ML AMPUL.NEB INHALATION (07:31)
[2021-03-30] MEDS: Furosemide 40 MG Tablet PO (07:37)
[2021-03-30 09:12] VITALS: BP 94/43; PULSE 82; RESP 16; TEMP 36.6; O2SAT 92
[2021-03-30 09:17] VITALS: O2SAT 92
[2021-03-30] MEDS: Pravastatin 40 MG Tablet PO (10:02)
[2021-03-30] MEDS: Lidocaine 5% Patch 2 PATCH TOPICAL (10:02)
[2021-03-30] MEDS: Enoxaparin 40 MG/0.4 ML Syringe SC (10:02)
--- NOTE | 2021-03-30 10:12 | PCM.DC.SUM ---
Providers Date of Admission: 03/25/21 Date of Discharge: 03/30/21 Primary Care Physician: Dr. Rebeka Rabago MD Consultations 03/27/21 11:09 Consult: Nephrology Routine Consulting Provider: Leonard Melgar Reason for Consult: JOSIE on CKD EMERGENT Consult: No MD Notified: Yes Date Notified: 03/27/21 Time Notified: 11:09 Method of Notification: Answering Service Reason For Visit: JOSIE Diagnosis Discharge Diagnosis (1) Acute renal failure: Status: Resolved Code(s): N17.9 - Acute kidney failure, unspecified Qualifiers: Acute renal failure type: unspecified Qualified Code(s): N17.9 - Acute kidney failure, unspecified (2) UTI (urinary tract infection): Status: Acute Code(s): N39.0 - Urinary tract infection, site not specified Qualifiers: Hematuria presence: without hematuria Urinary tract infection type: site unspecified Qualified Code(s): N39.0 - Urinary tract infection, site not specified (3) Pyelonephritis: Status: Resolved Code(s): N12 - Tubulo-interstitial nephritis, not specified as acute or chronic Medications at Discharge Home Medications fluticasone propionate 2 spray NASAL QHS 05/24/15 pravastatin 40 mg PO DAILY 05/24/15 Trulicity 1.5 mg SUBCUT JOHNSON 03/25/21 estradiol 3 g VAGINAL .2X/WEEK 03/25/21 fenofibrate 160 mg PO DAILY 03/25/21 gabapentin 300 mg PO QHS 03/25/21 levothyroxine 175 mcg PO DAILY 03/25/21 omega-3 fatty acids-vitamin E 1 cap PO DAILY 03/25/21 vitamin E 400 unit PO DAILY 03/25/21 Basaglar KwikPen U-100 Insulin 5 unit SQ DAILY #0 ml 03/30/21 levofloxacin 500 mg PO DAILY #2 tab 03/30/21 Hospital Course Operations None Procedures None Summary of Care Provided Minutes Spent on Discharge: 50 Hospital Course: Patient 5-year-old female with past medical history of type II DM, hypertension, who was recently treated for pyelonephritis comes in with persistent left flank pain. Patient admits to urine hesitancy and frequency. She was seen in the emergency room on 03/04 for an had a CT scan that showed mild left hydronephrosis and hydroureter with mild perinephric stranding most likely secondary to recent passage of tiny stone. Patient was discharged home on Bactrim. Her symptoms of dysuria and hesitancy were persistent and she came back. Her urinalysis was suggestive of acute UTI. Patient was started on IV antibiotics. Over the course of his stay, patient was hypotensive requiring discontinuation of home blood pressure medication. She required several fluid boluses. Her urine cultures came back growing E. coli, pansensitive. She was transitioned to Levaquin to complete a 7-day course. Patient also had her Lantus was held during this hospital stay. Her blood sugars remain controlled and she was [place]gg[place]'s on insulin sliding scale. She was discharged on 5 units of Lantus only. Patient did require oxygen which was believed to be secondary to fluid overload. Chest x-ray was negative for acute cardiopulmonary process. She responded well to a trial of Lasix. She did not require oxygen on the day of discharge. Physical Exam Narrative Physical exam: General: Alert, Oriented x3, Cooperative, No apparent distress, Well developed HEENT: Atraumatic Oral: Moist Mucosa Neck: Supple Lungs: Clear to auscultation Cardiovascular: HS I+II, regular, no murmurs Abdomen: Bowel Sounds Present, Soft, Non Tender Extremities: No edema Skin: No rashes, No breakdown Neurological: Grossly intact Psych/Mental Status: Appropriate Weight / BMI Weight Weight: 90.5 kg Body Mass Index (BMI) 34.7 ABG / Lab / Microbiology Data Result Diagrams: 03/30/21 05:28 03/30/21 05:28 Laboratory: Laboratory Results - last 24 hr 03/29/21 03/29/21 03/29/21 10:49 16:12 21:43 WBC RBC Hgb Hct MCV MCH MCHC RDW Std Deviation RDW Coeff of Catina Plt Count MPV Immature Gran % (Auto) Neut % (Auto) Lymph % (Auto) [place] % (Auto) Eos % (Auto) Baso % (Auto) Absolute Neuts (auto) Absolute Lymphs (auto) Nucleated RBC % Sodium Potassium Chloride Carbon Dioxide Anion Gap BUN Creatinine Estim Creat Clear Calc Est GFR (MDRD) Af Amer Est GFR (MDRD) Non-Af BUN/Creatinine Ratio Glucose Calcium Total Bilirubin AST ALT Alkaline Phosphatase Total Protein Albumin Globulin Albumin/Globulin Ratio POC Glucose 213 H 195 H 183 H 03/30/21 03/30/21 03/30/21 05:28 05:28 06:26 WBC 7.3 RBC 4.06 L Hgb 11.5 L Hct 35.5 L MCV 87.4 MCH 28.3 MCHC 32.4 RDW Std Deviation 42.6 RDW Coeff of Catina 13.4 Plt Count 198 MPV 9.7 Immature Gran % (Auto) 0.800 Neut % (Auto) 70.8 H Lymph % (Auto) 15.9 L [place] % (Auto) 7.4 Eos % (Auto) 4.8 Baso % (Auto) 0.3 Absolute Neuts (auto) 5.2 Absolute Lymphs (auto) 1.16 Nucleated RBC % 0 Sodium 138 Potassium 3.9 Chloride 106 Carbon Dioxide 29.0 Anion Gap 3 L BUN 14 Creatinine 0.86 Estim Creat Clear Calc 61.14 Est GFR (MDRD) Af Amer 88 Est GFR (MDRD) Non-Af 73 BUN/Creatinine Ratio 16.4 Glucose 160 H Calcium 8.3 L Total Bilirubin 0.30 AST 20 ALT 21 Alkaline Phosphatase 60 Total Protein 6.9 Albumin 2.6 L Globulin 4.3 H Albumin/Globulin Ratio 0.6 L POC Glucose 159 H Microbiology: Microbiology 03/25/21 18:20 Urine, Random Urine Culture - Final Escherichia coli 03/26/21 09:25 Mucosa - Nose SARS-CoV-2 Antigen (Rapid) - Final D/C Instructions Discharge Diet: Low fat / Low cholesterol, 2000 Calorie Control Diet and 2000 mg Sodium Diet Meaningful Use Info Meaningful Use Diagnoses (Choose all that apply): None applicable Discharge Plan Admission Admit Date/Time: 03/25/21 20:58 Primary Reason for Your Visit: Acute UTI Attending Provider: Janet Short Primary Care Provider: Rebeka Rabago Consulting Providers: Leonard Melgar Instructions Additional Instructions / Restrictions: Take not of changes to your medications. You have been taken off BP meds. Continue to monitor your BP daily and keep a log of readings. You are being discharged on a much reduced level of long-acting insulin. Continue to monitor your blood sugars thrice a day. Let your physician know if your blood sugars start to go up. You will need to repeat your blood kidney function test within 1 week. Discharge Orders/Prescriptions Prescriptions: New levofloxacin 500 mg tablet 500 mg PO DAILY Qty: 2 RF: 0 Continued pravastatin 40 MG tablet 40 mg PO DAILY RF: 0 fluticasone propionate 1 SPRAY spray,suspension 2 spray NASAL QHS RF: 0 gabapentin 300 mg capsule 300 mg PO QHS RF: 0 estradiol 0.01 % (0.1 mg/gram) cream 3 g VAGINAL .2X/WEEK RF: 0 fenofibrate 160 mg tablet 160 mg PO DAILY RF: 0 Trulicity 1.5 mg/0.5 mL pen injector 1.5 mg SUBCUT JOHNSON RF: 0 levothyroxine 175 mcg tablet 175 mcg PO DAILY RF: 0 vitamin E 400 unit Capsule 400 unit PO DAILY RF: 0 omega-3 fatty acids-vitamin E 1,000 mg Capsule 1 cap PO DAILY RF: 0 Changed Basaglar KwikPen U-100 Insulin 100 UNIT/ML insulin pen 5 unit SQ DAILY Qty: 0 RF: 0 Discontinued hydrochlorothiazide 12.5 MG capsule 12.5 mg PO DAILY RF: 0 insulin lispro [Humalog U-100 Insulin] 100 UNIT/ML solution 20 unit SQ TID RF: 0 lisinopril 2.5 mg tablet 2.5 mg PO DAILY RF: 0 sulfamethoxazole-trimethoprim [Bactrim DS] 800-160 mg tablet 1 tab PO BID Qty: 14 RF: 0 meloxicam 15 mg tablet 15 mg PO DAILY PRN (Reason: Pain) RF: 0 Referrals / Follow Up: Rebeka Rabago MD [Primary Care Provider] - In 1 Week Disposition Disposition (needs filled in before D/C Order can be placed): Home, Self Care Charges/Coding Visit Charges Inpatient E&M: 93529 Disch Hosp
[2021-03-30 21:31] LABS: Bedside Glucose 203 mg/dL (70-110)
--- NOTE | 2021-03-31 16:16 | CASEMGMT ---
COLT ORTIZ Discharge Follow Up Phone Call: AIDA: May Strata: 3 Call Date: 03.31.21 Discharge Date: 03.30.21 Time of Call: 1615 Duration: <1 min Admitting Dx: acute UTI RN DIANA attempted to complete follow up phone call after recent hospitalization. Left message on pt identified voicemail to return call if she would like.
== END 2021-03-30 12:50 | disposition home or self-care (01) | DRG 463 ==
LOC: ED 19:50 → MS3 21:01
PROVIDERS: Emergency Provider Emergency Medicine; PCP Internal Medicine; Visit Provider Internal Medicine
DX: N39.0 Urinary tract infection, site not specified (principal); N17.9 Acute kidney failure, unspecified; B96.20 Unspecified Escherichia coli [E. coli] as the cause of diseases classified elsewhere; E03.9 Hypothyroidism, unspecified; I95.1 Orthostatic hypotension; I12.9 Hypertensive chronic kidney disease with stage 1 through stage 4 chronic kidney disease, or unspecified chronic kidney disease; E11.22 Type 2 diabetes mellitus with diabetic chronic kidney disease; N18.2 Chronic kidney disease, stage 2 (mild); E78.00 Pure hypercholesterolemia, unspecified; G43.909 Migraine, unspecified, not intractable, without status migrainosus; Z87.442 Personal history of urinary calculi; Z87.448 Personal history of other diseases of urinary system; Z79.4 Long term (current) use of insulin; Z87.891 Personal history of nicotine dependence; Z79.899 Other long term (current) drug therapy
CPT/HCPCS: 36415; 36600; 71045; 76770; 80048; 80053; 81001; 82570; 82803; 82962; 83605; 84300; 84484; 85025; 87077; 87086; 87088; 87186; 87426; 93005; 94640; 94762; 97110; 97162; 97166; 97530; 97535; 99251; 99285; J7030; J7040; J7050; A4216; G0463; J2405

== ENCOUNTER 2021-07-06 10:18 | Emergency (ER) | payer MEDICAID, SELFPAY ==
[2021-07-06 10:19] VITALS: BP 109/60; PULSE 87; RESP 21; RESP 23; TEMP 37.2; O2SAT 92; O2SAT 93; BMI 33.2
--- NOTE | 2021-07-06 10:32 | EKG12_ITS ---
Test Reason : C Blood Pressure : / mmHG Vent. Rate : 084 BPM Atrial Rate : 084 BPM P-R Int : 156 ms QRS Dur : 094 ms QT Int : 374 ms P-R-T Axes : 033 003 059 degrees QTc Int : 441 ms Normal sinus rhythm Normal ECG Confirmed by JACQUIE DUNNE, XIMENA ([id number]), editor managing newspaper ALICJA DE LA PAZ ([id number]) on 07/08/2021 8:01:44 AM Referred By: CROW Confirmed By:XIMENA DHILLON MD
--- NOTE | 2021-07-06 10:33 | EDS_ITS ---
HPI History of Present Illness Chief Complaint: Chest Pain Informant: patient Narrative Narrative: Patient presents with nasal congestion, slight nonproductive cough, myalgias. This has been going on for approximately 3 or 4 days. Her history is a little bit difficult to obtain because she is very nonspecific with her comments. It takes quite a bit to get details from her. She has been having some chest soreness but has been constant for 3 days. Nothing makes it better or worse. She also has soreness in other areas. She started off with a runny nose and congestion. She has had nonproductive cough. She denies any history of lung disease yet she does report being on oxygen in the past but she does not know why. She has had nausea. She has had 2 episodes of vomiting without blood. She her stomach gets cramping prior or with the vomiting but no pain otherwise. No diarrhea or soft stools. No blood in the stool. No Covid vaccinations. She does not know of any when she has been around has had Covid. [facility] Medical History Hypercholesteremia Hypertension Hypothyroid Kidney stones Migraines Type 2 diabetes mellitus Home Medications fluticasone propionate 2 spray NASAL QHS 05/24/15 [History Last Taken 03/24/21] Trulicity 1.5 mg SUBCUT JOHNSON 03/25/21 [History Last Taken 03/23/21] estradiol 3 g VAGINAL .2X/WEEK 03/25/21 [History Last Taken Unknown] fenofibrate 160 mg PO DAILY 03/25/21 [History Last Taken 03/24/21] gabapentin 300 mg PO QHS 03/25/21 [History Last Taken 03/24/21] levothyroxine 175 mcg PO DAILY 03/25/21 [History Last Taken 03/24/21] omega-3 fatty acids-vitamin E 1 cap PO DAILY 03/25/21 [History Last Taken 03/24/21] vitamin E 400 unit PO DAILY 03/25/21 [History Last Taken 03/24/21] Basaglar KwikPen U-100 Insulin 10 unit SQ .WITH MEALS 07/06/21 [History Last Taken Unknown] dexamethasone [Decadron] 6 mg PO DAILY #9 tab 07/06/21 [Rx Last Taken Unknown] dicyclomine 10 mg PO ACHS 07/06/21 [History Last Taken Unknown] hydrochlorothiazide 12.5 mg PO DAILY 07/06/21 [History Last Taken Unknown] insulin degludec [Tresiba FlexTouch U-100] SUBCUT 07/06/21 [History Last Taken Unknown] ketorolac 1 drp OPHTHALMIC (EYE) Q6H 07/06/21 [History Last Taken Unknown] lisinopril 2.5 mg PO DAILY 07/06/21 [History Last Taken Unknown] meloxicam 15 mg PO DAILY PRN 07/06/21 [History Last Taken Unknown] ondansetron 4 mg PO Q8H PRN #10 tab 07/06/21 [Rx Last Taken Unknown] prednisolone acetate 1 drp OPHTHALMIC (EYE) Q6H 07/06/21 [History Last Taken U nknown] rosuvastatin 10 mg PO DAILY 07/06/21 [History Last Taken Unknown] Allergy/AdvReac Type Severity Reaction Status Date / Time metformin AdvReac Diarrhea Verified 07/06/21 10:25 oxycodone [From Percocet] AdvReac upset Verified 07/06/21 10:25 stomach/off balance Surgical History History of appendectomy Previous section Social History Smoking Status: Former smoker ROS ROS ED Constitutional Constitutional ED: Reports fever(s) and subjective Eyes Eyes: Denies blurry vision or change in vision ENT ENT ED: Reports rhinorrhea and sore throat; Denies ear pain Cardiovascular Cardiovascular: Reports chest pain; Denies palpitations or racing heartbeat Respiratory/Chest Respiratory/Chest: Reports cough; Denies dyspnea or sputum Gastrointestinal Gastrointestinal: Reports nausea and vomiting; Denies abdominal pain, diarrhea or melena Genitourinary Genitourinary ED: Denies dysuria, hematuria or urinary frequency Musculoskeletal Musculoskeletal: Reports myalgias Integumentary Denies rash Neurologic Neurologic: Denies headache(s), paresthesias or weakness Endocrine Endocrinology: Denies polydipsia or polyuria Allergic/Immunologic Allergic/Immunologic ED: Denies urticaria EXAM Physical Exam Const Vital Signs: 07/06/21 10:19 07/06/21 10:29 07/06/21 11:49 Temperature 98.9 F Temperature Source Oral Pulse Rate 87 86 Respiratory Rate 23 H 23 H Respiratory Effort Normal Blood Pressure 109/60 108/59 L Blood Pressure Mean 76 75 Pulse Ox 92 92 Oxygen Delivery Method Nasal Cannula Nasal Cannula Oxygen Flow Rate (L/min) 2 2 07/06/21 14:00 07/06/21 14:20 Temperature Temperature Source Pulse Rate 82 Respiratory Rate 22 H Respiratory Effort Blood Pressure 113/64 Blood Pressure Mean 80 Pulse Ox 85 97 Oxygen Delivery Method Room Air Nasal Cannula Oxygen Flow Rate (L/min) 2 Patient's alert oriented. She is mildly ill-appearing. She is nontoxic though. She is very cooperative. Positive well nourished and well developed General Appearance ED: well developed HEENT Reports dry mucous membranes Negative for trauma or tenderness Mouth ED: Yes dry mucous membranes Mouth: dry mucous membranes Eyes General Eye ED: Negative for pale conjunctiva or scleral icterus Neck no lymphadenopathy Resp normal respiratory effort and clear to auscultation bilaterally Auscultation: Negative for rales, rhonchi or wheezes Cardio regular rate, regular rhythm and no murmurs GI normal to inspection, nondistended, normoactive bowel sounds and non-tender Palpation: soft Back/Spine no CVA tenderness Extremity normal to inspection General Extremety ED: Negative for edema or tenderness General Extremity: Negative for edema Neuro oriented x3 Sensorium / Orientation: alert Psych mental status grossly normal Skin no rashes or lesions noted and no wounds MDM MDM MDM Narrative Medical decision making narrative: White count and hemoglobin are normal. Electrolytes show minimal elevation of creatinine.. Glucose is also minimally elevated. BNP is normal. Troponin is normal. X-ray shows some changes consistent with Covid and her Covid test is positive. This patient has symptoms of Covid, x-ray findings consistent with Covid and labs. She is given Decadron because she has borderline hypoxia. The lowest we got her was 85%. Usually she was about 88% with walking. In the room she was g ood. We walked her with 2 L and she was 94%. This patient had some nausea but it is better with meds. At this point I think we can get her home. I will put her on Decadron. We will write for Zofran. We already have oxygen arranged. We discussed reasons to return. She thinks she is about 4 days into the symptoms when she thinks back now. I explained that if this does get worse or her oxygen level is dropping below 90% she may need to come in. She still has a fair chance of having admission. We will order monoclonal therapy to but I do not know if she is open to this at this point. Lab Data Attestation: I reviewed the patient's lab results. Labs: Laboratory Results - last 24 hr 07/06/21 07/06/21 07/06/21 10:30 10:30 10:30 WBC 5.1 RBC 5.01 Hgb 14.6 Hct 44.7 MCV 89.2 MCH 29.1 MCHC 32.7 RDW Std Deviation 43.7 RDW Coeff of Catina 13.4 Plt Count 107 L MPV 10.6 Immature Gran % (Auto) 0.400 Neut % (Auto) 87.2 H Lymph % (Auto) 8.3 L [place] % (Auto) 3.9 Eos % (Auto) 0.0 Baso % (Auto) 0.2 Absolute Neuts (auto) 4.4 Absolute Lymphs (auto) 0.42 L Nucleated RBC % 0 Differential Comment SCANNED Sodium 138 Potassium 4.0 Chloride 100 Carbon Dioxide 29.0 Anion Gap 9 BUN 33 H Creatinine 1.32 H Estim Creat Clear Calc 41.58 Est GFR (MDRD) Af Amer 54 L Est GFR (MDRD) Non-Af 44 L BUN/Creatinine Ratio 25.0 H Glucose 163 H Calcium 8.8 Troponin I High Sens 28 B-Natriuretic Peptide 13.6 Radiography Diagnostic Testing: Radiology Impression Chest X-Ray 07/06/21 11:05 IMPRESSION: Bilateral pneumonia. Electronically Signed: Man Staton MD at 11:42 EDT Tel , Service support , EKG Initial EKG: Comments: EKG done for some dyspnea and shortness read by me shows sinus rhythm with a rate of 84. Nonspecific ST changes but no sign of infarct or ischemia. TN interval, QRS duration and QTc are normal. Discharge Plan Triage Chief Complaint: Chest Pain ED Provider: Vikram Hicks Dx/Rx/DC Orders Clinical Impression: COVID, Hypoxia Instructions: Caring for Someone Who Has COVID-19 Prescriptions: New dexamethasone [Decadron] 6 mg tablet 6 mg PO DAILY Qty: 9 RF: 0 ondansetron 4 mg tablet,disintegrating 4 mg PO Q8H PRN (Reason: nausea and vomiting) Qty: 10 RF: 0 No Action fluticasone propionate 1 SPRAY spray,suspension 2 spray NASAL QHS RF: 0 gabapentin 300 mg capsule 300 mg PO QHS RF: 0 estradiol 0.01 % (0.1 mg/gram) cream 3 g VAGINAL .2X/WEEK RF: 0 fenofibrate 160 mg tablet 160 mg PO DAILY RF: 0 Trulicity 1.5 mg/0.5 mL pen injector 1.5 mg SUBCUT JOHNSON RF: 0 levothyroxine 175 mcg tablet 175 mcg PO DAILY RF: 0 vitamin E 400 unit Capsule 400 unit PO DAILY RF: 0 omega-3 fatty acids-vitamin E 1,000 mg Capsule 1 cap PO DAILY RF: 0 meloxicam 15 mg tablet 15 mg PO DAILY PRN (Reason: Pain) RF: 0 ketorolac 0.5 % drops 1 drp ophthalmic (eye) Q6H RF: 0 prednisolone acetate 1 % drops,suspension 1 drp ophthalmic (eye) Q6H RF: 0 hydrochlorothiazide 12.5 mg capsule 12.5 mg PO DAILY RF: 0 lisinopril 2.5 mg tablet 2.5 mg PO DAILY RF: 0 dicyclomine 10 mg capsule 10 mg PO ACHS RF: 0 rosuvastatin 10 mg tablet 10 mg PO DAILY RF: 0 Tresiba FlexTouch U-100 100 unit/mL (3 mL) insulin pen SUBCUT RF: 0 Basaglar KwikPen U-100 Insulin 100 UNIT/ML insulin pen 10 unit SQ .WITH MEALS RF: 0 Other Ambulatory Orders: COVID Outpatient Monoclonal Antibody Referral (Routine) Timeframe: 1 Day Facility: [facility] - Location: [facility] Ordered By: Dr. Vikram Hicks Primary Care Provider: Rebeka Rabago Referrals: Rebeka Rabago MD [Primary Care Provider] - 3-5 Days if not improving Disposition Disposition: Home, Self Care
[2021-07-06 10:51] LABS: Absolute Lymphocyte Count 0.42 X10^3/uL (0.83-4.51); Absolute Neutrophil Count 4.4 X10^3/uL (2.0-7.7); Basophil# 0.01 X10^3/uL; Basophil% 0.2 % (0-1); Hematocrit 44.7 % (37-47); Hemoglobin 14.6 g/dL (12.0-15.0); Lymphocyte # 0.42 X10^3/ul (0.83-4.51); Lymphocyte % 8.3 % (19-41); Mean Corp Hgb Conc 32.7 g/dL (32-36); Mean Corpuscular Hgb 29.1 pg (27.0-32.0); Mean Corpuscular Volume 89.2 fL (81-99); Mean Platelet Vol. 10.6 fl (6.2-12.0); Monocyte% 3.9 % (0-10); NRBC Flagged by Analyzer 0 % (0-5); Neutrophil # 4.42 X10^3/uL (2.7-7.7); Neutrophil % 87.2 % (47-70); POSITIVE DIFFERENTIAL YES; Platelet Count 107 K/mm3 (150-450); RBC Distribution Width CV 13.4 % (11.6-14.6); RBC Distribution Width SD 43.7 fl (35.1-43.9); Red Blood Count 5.01 M/mm3 (4.2-5.4); White Blood Count 5.1 K/mm3 (4.4-11.0)
[2021-07-06 10:53] LABS: Anion Gap 9 (5-15); BUN 33 mg/dL (7-18); Calcium,Total 8.8 mg/dL (8.5-10.1); Chloride 100 mmol/L (98-107); Creatinine, Serum 1.32 mg/dL (0.55-1.02); EST Glomerular Filtration Rate 44 mL/min (>60); Est Glom Filt Rate - Afr Amer 54 mL/min (>60); Estimated Creatinine Clearance 41.58 ml/min; Glucose 163 mg/dL (74-106); Sodium Level 138 mmol/L (136-145); Troponin-I HS 28 pg/mL (3.0-54.0)
[2021-07-06 11:03] LABS: Differential Indicated SCAN CRITERIA MET
--- NOTE | 2021-07-06 11:05 | RAD_ITS ---
STUDY: X-RAY CHEST REASON FOR EXAM: Female, 55 years old. cough TECHNIQUE: Single AP portable view of the chest. COMPARISON: 03/26/2021 FINDINGS: Patchy alveolar opacities in both lungs consistent with bilateral pneumonia. There is no demonstrated pleural abnormality. Normal size heart. Normal mediastinum and yevgeniy. Normal visualized pulmonary arteries. Normal visualized aortic arch and descending thoracic aorta. Normal visualized thoracic spine. Normal visualized ribs, clavicles, and shoulders. There is no demonstrated abnormality of the visualized soft tissue structures of the upper abdomen. RAD/Chest 1 View (Portable) IMPRESSION: Bilateral pneumonia. Electronically Signed: Man Staton MD at 11:42 EDT Tel , Service support ,
[2021-07-06 11:25] LABS: Differential Comment SCANNED
[2021-07-06 11:31] LABS: BNP,B-Type NATRIURETIC PEPTIDE 13.6 pg/mL (0-100)
[2021-07-06 11:49] VITALS: BP 108/59; PULSE 86; RESP 23; O2SAT 92
[2021-07-06] MEDS: dexAMETHasone 10 MG/ML Vial 6 MG IV (12:19)
[2021-07-06 12:30] VITALS: O2SAT 92
[2021-07-06] MEDS: Ondansetron 4 MG/2 ML Vial IV (12:59)
[2021-07-06 14:00] VITALS: O2SAT 85
[2021-07-06 14:20] VITALS: BP 113/64; PULSE 82; RESP 22; O2SAT 97
--- NOTE | 2021-07-06 15:22 | ED.RN ---
HOME OXYGEN SET UP WITH [facility]AS[facility].
[2021-07-06 15:50] VITALS: O2SAT 95
== END 2021-07-06 15:50 | disposition home or self-care (01) ==
PROVIDERS: Emergency Provider Emergency Medicine; PCP Internal Medicine
DX: U07.1 COVID-19 (principal); R09.02 Hypoxemia; E03.9 Hypothyroidism, unspecified; I10 Essential (primary) hypertension; E11.9 Type 2 diabetes mellitus without complications; E78.00 Pure hypercholesterolemia, unspecified; G43.909 Migraine, unspecified, not intractable, without status migrainosus; Z87.442 Personal history of urinary calculi; Z79.4 Long term (current) use of insulin; Z79.899 Other long term (current) drug therapy; Z87.891 Personal history of nicotine dependence
CPT/HCPCS: 71045; 80048; 83880; 84484; 85025; 87426; 93005; 96374; 96375; 99285; A4216; J2405

== ENCOUNTER 2021-07-07 12:35 | Inpatient (IN) | payer MEDICAID, SELFPAY ==
[2021-07-07] VITALS (8 sets, daily range): BP systolic 108–134; BP diastolic 56–66; PULSE 73–83; RESP 18–22; TEMP 35.5–37.3; O2SAT 83–96; BMI 32.5
--- NOTE | 2021-07-07 13:25 | RAD_ITS ---
STUDY: X-RAY CHEST REASON FOR EXAM: Female, 55 years old. SOB TECHNIQUE: AP COMPARISON: 07/06/2021 FINDINGS: Patchy pulmonary infiltrates evident on the prior study have decreased in severity with overall improved pulmonary expansion. Dense nodule in the right lung base is compatible with a granuloma. There is no demonstrated pleural abnormality. Normal size heart. Normal mediastinum and yevgeniy. Normal visualized pulmonary arteries. Normal visualized aortic arch and descending thoracic aorta. No acute bony process. There is no demonstrated abnormality of the visualized soft tissue structures of the upper abdomen. RAD/Chest 1 View IMPRESSION: Favorable change. Decreasing multilobar pulmonary infiltrates. Electronically Signed: Dillon Arango MD ([place]) at 13:47 EDT , Service support ,
[2021-07-07 14:01] LABS: Absolute Lymphocyte Count 0.39 X10^3/uL (0.83-4.51); Absolute Neutrophil Count 6.7 X10^3/uL (2.0-7.7); Hematocrit 42.6 % (37-47); Hemoglobin 14.2 g/dL (12.0-15.0); Lymphocyte # 0.39 X10^3/ul (0.83-4.51); Lymphocyte % 5.3 % (19-41); Mean Corp Hgb Conc 33.3 g/dL (32-36); Mean Corpuscular Hgb 29.3 pg (27.0-32.0); Mean Corpuscular Volume 87.8 fL (81-99); Mean Platelet Vol. 10.7 fl (6.2-12.0); Monocyte# 0.24 X10^3/uL; Monocyte% 3.2 % (0-10); NRBC Flagged by Analyzer 0 % (0-5); Neutrophil # 6.73 X10^3/uL (2.7-7.7); Neutrophil % 91.1 % (47-70); POSITIVE DIFFERENTIAL YES; Platelet Count 117 K/mm3 (150-450); RBC Distribution Width CV 13.6 % (11.6-14.6); RBC Distribution Width SD 43.9 fl (35.1-43.9); Red Blood Count 4.85 M/mm3 (4.2-5.4); White Blood Count 7.4 K/mm3 (4.4-11.0)
[2021-07-07 14:02] LABS: Differential Indicated SCAN CRITERIA MET
--- NOTE | 2021-07-07 14:07 | ED.VIS.DYS ---
HPI History of Present Illness Chief Complaint: Shortness of Breath Informant: patient Onset/Context/Timing Onset: Days Context: gradual Timing: Continuous Current Severity: Mild Maximum Severity: Mild Worsened by: Exertion Relieved by: Nothing Associated Symptoms cough, fever and chills Chest Pain: Positive for None Narrative Narrative: 55-year-old diabetic female states she started having Covid symptoms on Wednesday and was recently diagnosed with positive test. She says she feels worse with nausea vomiting and increasing shortness of breath. No chest pain. She denies any history of lung disease or smoking. PE Risk Factors: Negative for Cancer, OCP + Smoking + > 35, Prior DVT or PE, Recent immobilization, Recent surgery and Recent travel Prior similar symptoms: No Recent Illness/Hospitalization: No PFSH PFSH Medical History Hypercholesteremia Hypertension Hypothyroid Kidney stones Migraines Type 2 diabetes mellitus Home Medications fluticasone propionate 2 spray NASAL QHS 05/24/15 [History Last Taken 03/24/21] Trulicity 1.5 mg SUBCUT JOHNSON 03/25/21 [History Last Taken 03/23/21] estradiol 3 g VAGINAL .2X/WEEK 03/25/21 [History Last Taken Unknown] fenofibrate 160 mg PO DAILY 03/25/21 [History Last Taken 03/24/21] gabapentin 300 mg PO QHS 03/25/21 [History Last Taken 03/24/21] levothyroxine 175 mcg PO DAILY 03/25/21 [History Last Taken 03/24/21] omega-3 fatty acids-vitamin E 1 cap PO DAILY 03/25/21 [History Last Taken 03/24/21] vitamin E 400 unit PO DAILY 03/25/21 [History Last Taken 03/24/21] Basaglar KwikPen U-100 Insulin 10 unit SQ .WITH MEALS 07/06/21 [History Last Taken Unknown] dexamethasone [Decadron] 6 mg PO DAILY #9 tab 07/06/21 [Rx Last Taken Unknown] dicyclomine 10 mg PO ACHS 07/06/21 [History Last Taken Unknown] hydrochlorothiazide 12.5 mg PO DAILY 07/06/21 [History Last Taken Unknown] insulin degludec [Tresiba FlexTouch U-100] SUBCUT 07/06/21 [History Last Taken Unknown] ketorolac 1 drp OPHTHALMIC (EYE) Q6H 07/06/21 [History Last Taken Unknown] lisinopril 2.5 mg PO DAILY 07/06/21 [History Last Taken Unknown] meloxicam 15 mg PO DAILY PRN 07/06/21 [History Last Taken Unknown] ondansetron 4 mg PO Q8H PRN #10 tab 07/06/21 [Rx Last Taken Unknown] prednisolone acetate 1 drp OPHTHALMIC (EYE) Q6H 07/06/21 [History Last Taken Unknown] rosuvastatin 10 mg PO DAILY 07/06/21 [History Last Taken Unknown] Allergy/AdvReac Type Severity Reaction Status Date / Time metformin AdvReac Diarrhea Verified 07/07/21 13:18 oxycodone [From Percocet] AdvReac upset Verified 07/07/21 13:18 stomach/off balance Surgical History History of appendectomy Previous section Social History Smoking Status: Former smoker ROS ROS ED Review of Systems ROS Unobtainable: Denies due to encephalopathy Constitutional Constitutional ED: Reports chills and fever(s) Eyes Eyes: Denies change in vision ENT ENT ED: Denies ear pain or sore throat Cardiovascular Cardiovascular: Denies chest pain Respiratory/Chest Respiratory/Chest: Reports cough and dyspnea Gastrointestinal Gastrointestinal: Reports nausea and vomiting; Denies abdominal pain Genitourinary Genitourinary ED: Denies dysuria Musculoskeletal Musculoskeletal: Reports myalgias Integumentary Denies rash Neurologic Neurologic: Denies headache(s) Psychiatric Psychiatric: Denies depression Endocrine Endocrinology: Denies polyuria Hematologic/Lymphatic Hematologic/Lymphatic: Denies easy bruising Allergic/Immunologic Allergic/Immunologic ED: Denies urticaria EXAM Physical Exam Narrative Exam Narrative: Middle-aged female pulse ox 89% on room air hypoxic. Vital signs are stable. She looks dehydrated. HEENT exam dry extremities. Neck nontender. Lungs clear to auscultation bilaterally. Heart regular rhythm no murmur rate of 80. Abdomen soft nontender. Moving all 4 extremities. Nontender no edema. Neurologically awake alert no focal motor deficits. Const Vital Signs: 07/07/21 13:16 07/07/21 13:21 07/07/21 14:13 Temperature 96 F L Temperature Source Temporal Pulse Rate 80 82 Respiratory Rate 22 H 19 H Respiratory Effort Respiratory Depth Respiratory Pattern Blood Pressure 124/62 H 120/63 Blood Pressure Mean 82 82 Pulse Ox 89 92 96 Oxygen Delivery Method Room Air Nasal Cannula Room Air Oxygen Flow Rate (L/min) 2 07/07/21 14:15 Temperature Temperature Source Pulse Rate Respiratory Rate Respiratory Effort Normal Non-Labored Respiratory Depth Normal Respiratory Pattern Normal Blood Pressure Blood Pressure Mean Pulse Ox Oxygen Delivery Method Oxygen Flow Rate (L/min) Positive well nourished and well developed; Negative for cachectic or contractures General Appearance ED: well developed and NAD; Negative for cachectic or contractures Nutritional Appearance: Negative for cachectic HEENT Reports dry mucous membranes atraumatic Mouth ED: Yes dry mucous membranes Mouth: dry mucous membranes Eyes PERRL and EOMs intact bilaterally Neck no lymphadenopathy, supple, no meningeal signs and no JVD General: Negative for tenderness Resp normal respiratory effort and clear to auscultation bilaterally Auscultation: Negative for rales, rhonchi or wheezes Cardio regular rate, regular rhythm, S1 normal heart sound, S2 normal heart sound and no murmurs GI non-tender, non-distended and no masses Auscultation: normoactive bowel sounds Palpation: soft; Negative for tender, guarding or rebound tenderness present Back/Spine no CVA tenderness and normal to inspection Extremity normal to inspection General Extremety ED: Negative for edema or tenderness General Extremity: Negative for edema Neuro oriented x3 and CN's II-XII intact bilaterally Sensorium / Orientation: alert, oriented to person, oriented to place, oriented to time and orientation impaired; Negative for confused, lethargic or stuporous Motor Exam: strength 5/5 throughout Psych mental status grossly normal Skin no wounds General Skin Exam: Negative for jaundice Lesions: no lesions Rashes: no rashes MDM MDM MDM Narrative Medical decision making narrative: Middle-aged female hypoxic with Covid symptoms for last 4 days. Treated with IV fluids, Decadron chest x-ray and labs. Repeat exam patient states she just feels miserable. Due to she looks clinically and her hypoxia I have spoken to the hospitalist to admit her. Lab Data Attestation: I reviewed the patient's lab results. Lab results narrative: CBC shows a white count of 7. Hemoglobin 14. Platelet count of 117. Electrolytes show a anion gap at 9. BUN of 42 and creatinine 1.3. Glucose 153. That is the patient's baseline BUN and creatinine. Labs: Laboratory Results - last 24 hr 07/07/21 07/07/21 13:55 13:55 WBC 7.4 RBC 4.85 Hgb 14.2 Hct 42.6 MCV 87.8 MCH 29.3 MCHC 33.3 RDW Std Deviation 43.9 RDW Coeff of Catina 13.6 Plt Count 117 L MPV 10.7 Immature Gran % (Auto) 0.400 Neut % (Auto) 91.1 H Lymph % (Auto) 5.3 L [place] % (Auto) 3.2 Eos % (Auto) 0.0 Baso % (Auto) 0.0 Absolute Neuts (auto) 6.7 Absolute Lymphs (auto) 0.39 L Nucleated RBC % 0 Differential Comment SCANNED Platelet Estimate SLT DEC Sodium 138 Potassium 3.9 Chloride 99 Carbon Dioxide 30.0 Anion Gap 9 BUN 42 H Creatinine 1.30 H Estim Creat Clear Calc 42.22 Est GFR (MDRD) Af Amer 55 L Est GFR (MDRD) Non-Af 45 L BUN/Creatinine Ratio 32.3 H Glucose 153 H Calcium 9.1 Radiography Chest X-Ray - ED: 1 View, Heart, Mediastinum, Bony Structures, Right Infiltrate and Left Infiltrate Diagnostic Testing: Radiology Impression Chest X-Ray 07/07/21 13:25 IMPRESSION: Favorable change. Decreasing multilobar pulmonary infiltrates. Electronically Signed: Dillon Arango MD ([place]) at 13:47 EDT , Service support , Portable chest x-ray 1 view interpreted by myself and radiologist. Shows Covid pneumonitis but is no worse than possibly improving from the most recent chest x-ray. Discharge Plan Triage Chief Complaint: Shortness of Breath ED Provider: Brian Romero Dx/Rx/DC Orders Clinical Impression: COVID, Hypoxia Prescriptions: No Action fluticasone propionate 1 SPRAY spray,suspension 2 spray NASAL QHS RF: 0 gabapentin 300 mg capsule 300 mg PO QHS RF: 0 estradiol 0.01 % (0.1 mg/gram) cream 3 g VAGINAL .2X/WEEK RF: 0 fenofibrate 160 mg tablet 160 mg PO DAILY RF: 0 Trulicity 1.5 mg/0.5 mL pen injector 1.5 mg SUBCUT JOHNSON RF: 0 levothyroxine 175 mcg tablet 175 mcg PO DAILY RF: 0 vitamin E 400 unit Capsule 400 unit PO DAILY RF: 0 omega-3 fatty acids-vitamin E 1,000 mg Capsule 1 cap PO DAILY RF: 0 meloxicam 15 mg tablet 15 mg PO DAILY PRN (Reason: Pain) RF: 0 ketorolac 0.5 % drops 1 drp ophthalmic (eye) Q6H RF: 0 prednisolone acetate 1 % drops,suspension 1 drp ophthalmic (eye) Q6H RF: 0 hydrochlorothiazide 12.5 mg capsule 12.5 mg PO DAILY RF: 0 lisinopril 2.5 mg tablet 2.5 mg PO DAILY RF: 0 dicyclomine 10 mg capsule 10 mg PO ACHS RF: 0 rosuvastatin 10 mg tablet 10 mg PO DAILY RF: 0 Tresiba FlexTouch U-100 100 unit/mL (3 mL) insulin pen SUBCUT RF: 0 Basaglar KwikPen U-100 Insulin 100 UNIT/ML insulin pen 10 unit SQ .WITH MEALS RF: 0 dexamethasone [Decadron] 6 mg tablet 6 mg PO DAILY Qty: 9 RF: 0 ondansetron 4 mg tablet,disintegrating 4 mg PO Q8H PRN (Reason: nausea and vomiting) Qty: 10 RF: 0 Primary Care Provider: Rebeka Rabago Referrals: Rebeka Rabago MD [Primary Care Provider] -
[2021-07-07 14:11] LABS: Anion Gap 9 (5-15); BUN 42 mg/dL (7-18); BUN/Creat Ratio 32.3 RATIO (10-20); Calcium,Total 9.1 mg/dL (8.5-10.1); Chloride 99 mmol/L (98-107); EST Glomerular Filtration Rate 45 mL/min (>60); Est Glom Filt Rate - Afr Amer 55 mL/min (>60); Estimated Creatinine Clearance 42.22 ml/min; Glucose 153 mg/dL (74-106); Potassium 3.9 mmol/L (3.5-5.1); Sodium Level 138 mmol/L (136-145)
[2021-07-07 14:21] LABS: Differential Comment SCANNED; Platelet Estimate SLT DEC (ADEQ)
[2021-07-07] MEDS: Ondansetron 4 MG/2 ML Vial IV ×2 (14:34→17:03)
[2021-07-07] MEDS: dexAMETHasone 10 MG/ML Vial IV (14:36)
[2021-07-07] MEDS: 0.9% Normal Saline 1,000 ML 1000 ML IV (14:40)
--- NOTE | 2021-07-07 15:42 | HP.PCM.HOS_ITS ---
HPI - General General Date of Admission: 07/07/21 Date of Service: 07/07/21 Chief Complaint: COVID positive recent diagnosis, increasing dyspnea HPI Narrative The patient is a 55 y/o F w/ PMHx: Obesity, HTN, HLD, Migraines, Diabetes mellit us type II, Former tobacco use who presents to the [facility] ED on 07/07/21 with history of onset COVID type symptoms Wednesday with ED evaluation 07/06/21 with COVID + diagnosis and discharge to home at that time on Decadron regimen with reported fever, chills, mild congestion, nonproductive cough, dyspnea, body aches, nausea, emesis, abdominal cramping with no associated diarrhea significantly worsening prompting ED reevaluation. Patient had been ordered monoclonal antibody at her most recent ED evaluation however she has yet to receive this regimen. In the ED patient clutching her chest and does report significant discomfort, reports chest discomfort but also reflux, EKG with sinus tachycardia with no acute evidence of ischemia and initial cardiac enzyme pending and evaluation. Work-up in the ED included T1-6, heart rate 80, BP 124/62, respiratory rate 22, patient ranging 87 to 89% on room air with improvement to 92% on 2 L nasal cannula, CBC with WBC 7.4, hemoglobin 14.2, platelet 117 with lymphopenia, BMP with BUN/creatinine 42/1.30, glucose 153, chest x-ray with decreased appearance of multilobar pulmonary infiltrates. In the ED patient ministered normal saline bolus, Decadron 10 mg IV x1, morphine 8 mg IV x1 as well as Zofran therapy 4 mg IV x2. [facility] Medical History (Updated 07/07/21 @ 20:[address] Lennie Khalil MD) Former tobacco use Hypercholesteremia Hypertension Hypothyroid Kidney stones Migraines Obesity Type 2 diabetes mellitus Home Medications fluticasone propionate 2 spray NASAL QHS 05/24/15 [History Last Taken 03/24/21] Trulicity 1.5 mg SUBCUT JOHNSON 03/25/21 [History Last Taken 03/23/21] estradiol 3 g VAGINAL .2X/WEEK 03/25/21 [History Last Taken Unknown] fenofibrate 160 mg PO DAILY 03/25/21 [History Last Taken 03/24/21] gabapentin 300 mg PO QHS 03/25/21 [History Last Taken 03/24/21] levothyroxine 175 mcg PO DAILY 03/25/21 [History Last Taken 03/24/21] omega-3 fatty acids-vitamin E 1 cap PO DAILY 03/25/21 [History Last Taken 03/24/21] vitamin E 400 unit PO DAILY 03/25/21 [History Last Taken 03/24/21] Basaglar KwikPen U-100 Insulin 10 unit SQ .WITH MEALS 07/06/21 [History Last Taken Unknown] dexamethasone [Decadron] 6 mg PO DAILY #9 tab 07/06/21 [Rx Last Taken Unknown] dicyclomine 10 mg PO ACHS 07/06/21 [History Last Taken Unknown] hydrochlorothiazide 12.5 mg PO DAILY 07/06/21 [History Last Taken Unknown] insulin degludec [Tresiba FlexTouch U-100] SUBCUT 07/06/21 [History Last Taken Unknown] ketorolac 1 drp OPHTHALMIC (EYE) Q6H 07/06/21 [History Last Taken Unknown] lisinopril 2.5 mg PO DAILY 07/06/21 [History Last Taken Unknown] meloxicam 15 mg PO DAILY PRN 07/06/21 [History Last Taken Unknown] ondansetron 4 mg PO Q8H PRN #10 tab 07/06/21 [Rx Last Taken Unknown] prednisolone acetate 1 drp OPHTHALMIC (EYE) Q6H 07/06/21 [History Last Taken Unknown] rosuvastatin 10 mg PO DAILY 07/06/21 [History Last Taken Unknown] Allergy/AdvReac Type Severity Reaction Status Date / Time metformin AdvReac Diarrhea Verified 07/07/21 13:18 oxycodone [From Percocet] AdvReac upset Verified 07/07/21 13:18 stomach/off balance Family History (Updated 07/07/21 @ 20:[address] Lennie Khalil MD) Mother Diabetes Father Diabetes Surgical History History of appendectomy Previous section Social History (Updated 07/07/21 @ 20:[address] Lennie Khalil MD) household members: none Smoking Status: Former smoker how long ago did patient quit smoking: Quit cigarette tobacco 4-6 years prior, 1 ppd since teenager until quit. alcohol intake: never substance use type: does not use ROS ROS Narrative Admission Review of Systems: CONSTITUTIONAL: No weight loss, + fever, chills, weakness or fatigue. HEENT: + Congestion, rhinorrhea, headaches. Eyes: No visual loss, blurred vision, double vision or yellow sclerae. Ears, Nose, Throat: No hearing loss, sneezing. SKIN: No rash or itching, lesions, wounds. CARDIOVASCULAR: No chest pain, chest pressure or chest discomfort, palpitations, edema, orthopnea, syncopal events. RESPIRATORY:+ shortness of breath, cough without marked sputum, No wheezing, hemoptysis. GASTROINTESTINAL: + anorexia, nausea, vomiting, No diarrhea, abdominal pain, melena, BRBPR. GENITOURINARY: No dysuria, frequency, urgency or retention. NEUROLOGICAL: + headache, No dizziness, syncope, paralysis, ataxia, numbness or tingling in the extremities, focal weakness, change in bowel or bladder control, seizure. MUSCULOSKELETAL:+ muscle, back pain, joint pain or stiffness. HEMATOLOGIC: No anemia, bleeding or bruising. LYMPHATICS: No enlarged nodes. No history of splenectomy. PSYCHIATRIC: No history of depression or anxiety. ENDOCRINOLOGIC: No reports of sweating, cold or heat intolerance. No polyuria or polydipsia. ALLERGIES: No history of asthma, hives, eczema or rhinitis. Vital Signs Vital Signs Vital Signs: 07/07/21 13:16 07/07/21 13:21 07/07/21 14:13 Temperature 96 F L Temperature Source Temporal Pulse Rate 80 82 Respiratory Rate 22 H 19 H Respiratory Effort Respiratory Depth Respiratory Pattern Blood Pressure 124/62 H 120/63 Blood Pressure Mean 82 82 Pulse Ox 89 92 96 Oxygen Delivery Method Room Air Nasal Cannula Room Air Oxygen Flow Rate (L/min) 2 07/07/21 14:15 Temperature Temperature Source Pulse Rate Respiratory Rate Respiratory Effort Normal Non-Labored Respiratory Depth Normal Respiratory Pattern Normal Blood Pressure Blood Pressure Mean Pulse Ox Oxygen Delivery Method Oxygen Flow Rate (L/min) Weight Weight: 190 lb Body Mass Index (BMI) 32.5 Physical Exam Narrative Physical Examination: General: Awake, alert, oriented x 3 and cooperative, seated upright in the ED bed, intractable ongoing emesis, disheveled and ill-appearing. Skin: Normal color, normal turgor, no icterus, no cyanosis. HEENT: AT/NC, EOMI, PERRLA, dry MM, no carotid bruits or JVD noted. Lungs: Diffusely diminished, greater bases, increased respiratory rate, no rales, ronchi or wheezing. Heart: Tachycardic with regular rhythm; no gallop, rub audible. Abdomen: Soft, generalized discomfort, likely suspected secondary to musculoskeletal etiology given intractable nausea and emesis, no marked distention, distant hyperactive bowel sounds, no obvious evidence of HSM. Extremities: No cyanosis, clubbing, or edema. Neurological: Patient awake, alert, oriented as noted , cognitive function intact; pupils equally reactive to light and accommodation, cranial nerves II- XII grossly normal, moving all 4 extremities, no focal deficits, strength severely globally [place] secondary to acute presentation. Psychiatric: Affect appears fatigued, disheveled, ill-appearing, uncomfortable, no acute evidence of depressive or anxiety feelings. Results Lab / Micro Data Result Diagrams: 07/07/21 13:55 07/07/21 13:55 Labs: Laboratory Results - last 24 hr 07/07/21 13:55: WBC 7.4, RBC 4.85, Hgb 14.2, Hct 42.6, MCV 87.8, MCH 29.3, MCHC 33.3, RDW Std Deviation 43.9, RDW Coeff of Catina 13.6, Plt Count 117 L, MPV 10.7, Immature Gran % (Auto) 0.400, Neut % (Auto) 91.1 H, Lymph % (Auto) 5.3 L, [place] % (Auto) 3.2, Eos % (Auto) 0.0, Baso % (Auto) 0.0, Absolute Neuts (auto) 6.7, Abs olute Lymphs (auto) 0.39 L, Nucleated RBC % 0, Differential Comment SCANNED, Platelet Estimate SLT 07/07/21 13:55: Sodium 138, Potassium 3.9, Chloride 99, Carbon Dioxide 30.0, Anion Gap 9, BUN 42 H, Creatinine 1.30 H, Estim Creat Clear Calc 42.22, Est GFR (MDRD) Af Amer 55 L, Est GFR (MDRD) Non-Af 45 L, BUN/Creatinine Ratio 32.3 H, G lucose 153 H, Calcium 9.1 Radiology Impression Chest X-Ray 07/07/21 13:25 IMPRESSION: Favorable change. Decreasing multilobar pulmonary infiltrates. Electronically Signed: Dillon Arango MD (Bro[place]) at 13:47 EDT , Service support , Assessment & Plan Assessment/Plan (1) Pneumonia due to COVID-19 virus: (2) Hypoxia: PLAN: The patient is a 55 y/o F w/ PMHx: Obesity, HTN, HLD, Migraines, Diabetes mellitus type II, Former tobacco use who presents to the [facility] ED on 07/07/21 with history of onset COVID type symptoms Wednesday with ED evaluation 07/06/21 with COVID + diagnosis and discharge to home at that time on Decadron regimen with reported fever, chills, mild congestion, nonproductive cough, dyspnea, body aches, nausea, emesis, abdominal cramping with no associated diarrhea significantly worsening prompting ED reevaluation. 1. Acute Hypoxia, Intractable Nausea/Emesis, Pleuritic chest pain secondary to Acute Bilateral Pneumonia secondary to Acute Viral Syndrome, COVID-19: We will admit to telemetry medical surgical floor, maintain Covid precautions, will maintain on oxygen with wean as tolerated to room air, PRN albuterol, HOB, IS parameters w/ pending sputum cultures, respiratory viral panel and urine antigens, will obtain D-dimer, procalcitonin, CRP, CPK, Ferritin, LDH, trop which is pending upon evaluation as discussed with ED physician and BNP, continue supportive care including q 2 hour turning including prone given no prone bed availability and judicious hydration, closely monitor for worsening status for ARDS and multiorgan failure, will initiate and continue IV decadron x 10 doses, given presentation will also initiate IV remdesivir but defer to di scretion of Infectious disease. 2. Hypertension: Continue home regimen including lisinopril, hydro chlorothiazide with hold parameters as needed, PRN hydralazine. 3. Hyperlipidemia: Continue home statin regimen. 4. Chronic Kidney Disease Stage III, unclear subtype with mild renal insufficiency secondary to #1: Admission BUN/Cr 42/1.30, baseline renal function primarily 0.7-0.9, repeat BMP in AM. 5. Diabetes mellitus type II: Hold oral home regimen, continue home insulin regimen, ADA diet, accu checks w/ ISS. 6. Obesity: Encourage diet lifestyle changes. 7. Former tobacco use: Encourage continued tobacco cessation. 8. DVT prophylaxis: SCDs, Lovenox. 9. CODE status: Patient HCPOA and living will are both not set up. Given hypoxia with Covid pneumonia presentation, discussed CODE status at length including difference between FULL code, DNR-CCA and DNR-CC status. Following discussions about the differences in these status, requested Full Code status. Patient amenable to airvo and BIPAP if necessary. Advanced Care Planning Face to Face Time: 16 minutes. Charges/Coding Visit Charges Inpatient E&M: 52251 Init Hosp L3 Procedures Hospitalists Procedures: 84067 Advncd Care Plan 30 Min
--- NOTE | 2021-07-07 16:06 | EKG12_ITS ---
Test Reason : SOB Blood Pressure : / mmHG Vent. Rate : 078 BPM Atrial Rate : 078 BPM P-R Int : 164 ms QRS Dur : 098 ms QT Int : 422 ms P-R-T Axes : 031 017 051 degrees QTc Int : 481 ms Normal sinus rhythm Prolonged QT Abnormal ECG Confirmed by JACQUIE DUNNE, XIMENA ([id number]), online editor ALICJA DE LA PAZ ([id number]) on 07/08/2021 7:48:09 AM Referred By: CODI Confirmed By:XIMENA DHILLON MD
[2021-07-07] MEDS: 0.9% Normal Saline 1,000 ML 999 ML IV (17:03)
[2021-07-07] MEDS: morphine 8 MG/ML Syringe IV (17:03)
[2021-07-07 17:09] LABS: AST(SGOT) 35 U/L (15-37); Alanine Aminotransfer ALT/SGPT 23 U/L (13-56); Albumin, Serum 3.3 g/dL (3.2-5.0); Alkaline Phosphatase 45 U/L (45-117); Bilirubin, Direct 0.18 mg/dL (0.00-0.30); Ferritin 266 ng/mL (8-252); Globulin 4.7 g/dL (2.2-4.2); LDH 296 U/L (84-246); Magnesium 2.6 mg/dL (1.6-2.6); Troponin-I HS 20 pg/mL (3.0-54.0)
[2021-07-07 17:12] LABS: BNP,B-Type NATRIURETIC PEPTIDE 4.7 pg/mL (0-100)
[2021-07-07 17:16] LABS: Procalcitonin 1.87 ng/mL (0.00-0.09)
[2021-07-07 17:40] LABS: D-Dimer Quantitative (DVT/PE) 1.04 FEU/ug/m (0.27-0.49)
--- NOTE | 2021-07-07 17:51 | CT_ITS ---
EXAM: CT ANGIOGRAPHY CHEST WITHOUT AND WITH INTRAVENOUS CONTRAST CLINICAL INDICATION: elevated d-dimer TECHNIQUE: Helically acquired angiography images were obtained of the chest without and with intravenous contrast. This CT exam was performed using one or more of the following dose reduction techniques: automated exposure control, adjustment of the mA and/or kV according to patient size, and/or use of iterative reconstruction technique. This report was created using [employer] report generation technology. MIP reconstructed images were created and reviewed. CONTRAST: IV 100mL [id number] COMPARISON: None. FINDINGS: PULMONARY ARTERIES: No demonstrated pulmonary embolism or arterial dissection. AORTA: Unremarkable. Normal in caliber. No evidence of dissection. GREAT VESSELS OF AORTIC ARCH: Unremarkable. Normal in caliber. No evidence of dissection. LUNGS AND PLEURAL SPACES: There is bilateral pneumonia. No mass. No pleural effusion or thickening. HEART: Unremarkable. Heart size is normal. No pericardial effusion. No signs of right heart strain, ratio of right ventricle to left ventricle measures less than 1. MEDIASTINUM: Unremarkable. No mediastinal or hilar adenopathy. Esophagus is unremarkable. No hiatal hernia. THYROID: Unremarkable. No thyroid lesions. BONES/JOINTS: There are degenerative findings of the thoracic spine. No suspicious lytic or blastic abnormality. SPLEEN: Spleen is enlarged. CT/CTA Chest W/WO Contrast IMPRESSION: 1. No demonstrated pulmonary embolism or arterial dissection. 2. There is bilateral pneumonia. Electronically Signed: Cem Stoddard MD at 19:00 EDT , Service support ,
[2021-07-07] MEDS: 0.9% Normal Saline 1,000 ML 100 ML IV (18:46)
[2021-07-07 19:00] LABS: Bedside Glucose 139 mg/dL (70-110)
[2021-07-07 19:15] LABS: Troponin-I HS 22 pg/mL (3.0-54.0)
[2021-07-07] MEDS: Famotidine 20 MG Tablet PO (20:39)
[2021-07-07] MEDS: Enoxaparin 30 MG/0.3 ML Syringe SC (20:39)
[2021-07-07 20:51] LABS: Troponin-I HS 25 pg/mL (3.0-54.0)
[2021-07-08] VITALS (12 sets, daily range): BP systolic 104–130; BP diastolic 58–65; PULSE 62–79; RESP 18–20; TEMP 36.4–36.6; O2SAT 92–95
[2021-07-08 00:16] LABS: Bedside Glucose 111 mg/dL (70-110)
[2021-07-08] MEDS: Acetaminophen 325 MG Tablet 650 MG PO ×3 (05:46→18:55)
--- NOTE | 2021-07-08 05:55 | EKG12_ITS ---
Test Reason : AM EKG Blood Pressure : / mmHG Vent. Rate : 073 BPM Atrial Rate : 073 BPM P-R Int : 160 ms QRS Dur : 096 ms QT Int : 434 ms P-R-T Axes : 030 007 049 degrees QTc Int : 478 ms Normal sinus rhythm Normal ECG Confirmed by CARLOS DUNNE, BOUBACAR ([id number]), editor greeting card ALICJA DE LA PAZ ([id number]) on 07/08/2021 10:04:06 AM Referred By: BRYANNA Confirmed By:BOUBACAR GONZALEZ MD
[2021-07-08 05:56] LABS: Bedside Glucose 91 mg/dL (70-110)
[2021-07-08 07:08] LABS: Absolute Lymphocyte Count 0.37 X10^3/uL (0.83-4.51); Absolute Neutrophil Count 4.3 X10^3/uL (2.0-7.7); Hematocrit 38.5 % (37-47); Hemoglobin 12.6 g/dL (12.0-15.0); Lymphocyte # 0.37 X10^3/ul (0.83-4.51); Lymphocyte % 7.7 % (19-41); Mean Corp Hgb Conc 32.7 g/dL (32-36); Mean Corpuscular Hgb 29.6 pg (27.0-32.0); Mean Corpuscular Volume 90.4 fL (81-99); Mean Platelet Vol. 10.1 fl (6.2-12.0); Monocyte# 0.15 X10^3/uL; Monocyte% 3.1 % (0-10); NRBC Flagged by Analyzer 0 % (0-5); Neutrophil # 4.27 X10^3/uL (2.7-7.7); Neutrophil % 88.8 % (47-70); POSITIVE DIFFERENTIAL YES; Platelet Count 108 K/mm3 (150-450); RBC Distribution Width CV 13.8 % (11.6-14.6); RBC Distribution Width SD 45.8 fl (35.1-43.9); Red Blood Count 4.26 M/mm3 (4.2-5.4); White Blood Count 4.8 K/mm3 (4.4-11.0)
[2021-07-08 07:17] LABS: Differential Indicated SCAN CRITERIA MET
[2021-07-08 07:56] LABS: ALB/GLOB Ratio 0.6 RATIO (0.9-2.4); AST(SGOT) 28 U/L (15-37); Alanine Aminotransfer ALT/SGPT 17 U/L (13-56); Albumin, Serum 2.5 g/dL (3.2-5.0); Alkaline Phosphatase 35 U/L (45-117); Anion Gap 11 (5-15); BUN 31 mg/dL (7-18); Calcium,Total 7.6 mg/dL (8.5-10.1); Chloride 108 mmol/L (98-107); Creatinine, Serum 1.07 mg/dL (0.55-1.02); EST Glomerular Filtration Rate 56 mL/min (>60); Est Glom Filt Rate - Afr Amer 68 mL/min (>60); Globulin 4.2 g/dL (2.2-4.2); Glucose 141 mg/dL (74-106); Potassium 3.9 mmol/L (3.5-5.1); Protein, Total 6.7 g/dL (6.4-8.2); Sodium Level 142 mmol/L (136-145)
[2021-07-08] MEDS: Enoxaparin 30 MG/0.3 ML Syringe SC ×2 (08:41→22:03)
[2021-07-08] MEDS: Famotidine 20 MG Tablet PO ×2 (10:10→22:04)
[2021-07-08] MEDS: 0.9% Saline Lock 10 ML Syringe IV ×2 (10:18→22:17)
--- NOTE | 2021-07-08 10:58 | PCS.PANDOC ---
PANDEMIC DOCUMENTATION INITIATED: Date: 05/19/2021 Time: 190
[2021-07-08 11:56] LABS: Bedside Glucose 90 mg/dL (70-110)
--- NOTE | 2021-07-08 13:15 | CASEMGMT ---
Addendum entered by Aida Samayoa 07/08/21 14:35: Per Cathie at [facility] [place], Pt was set up with 2L continuous and 4L w/ exertion on 07/06/21. Ariadne GREGORY CM Original Note: COLT ORTIZ assessment: Face to Face with patient for initial transition planning/care coordination assessment. COLT ORTIZ introduced self and role at [facility] [place], pt voices understanding and consents to assessment. Pt is sitting up in bed on 6L nc in no distress. Pt is A/O x4 and answers all questions appropriately. Pt states is not vaccinated and states no concerns with getting resources once home. Care providers, pharmacy, and demographics verified. Presentation: Pt states COVID +, increased SOB, vomiting Admitting dx: COVID, hypoxia PCP: [facility] Specialists: Pt states no current specialists. Preferred Pharmacy: [facility] Insurance: [facility] Prescription Benefit: CRS Living Will/HPOA: Pt states does not have LW/HPOA and declines AD info. LNOK: Guerotomy Romero, sis-in-law; Laura Philippe, friend Living Arrangements: Pt lives with adult son in mobile home and states no concerns at home. Pt is independent with ADL's. Transportation: Pt sis-in-law drives and states no transportation concerns. DME/HHC: Pt was set up with 2L continuous home oxygen thru [facility] [place] thru [facility] [place] ED on 07/06. Pt states no need for any further DME. Pt states no hx of HHC or SNF. Pt states no concerns with going home at time of discharge. Pt is unemployed. Pt states does not smoke cigarettes or drink ETOH. Pt voices no further concerns/needs. CM to follow for increased home oxygen need and any further discharge planning/needs. Advised pt to ask for CM if any further questions/concerns/needs arise, voices understanding. Pt Goal: Home Plan: Home Ariadne GREGORY CM
--- NOTE | 2021-07-08 15:31 | PN.HOSP_ITS ---
Subjective Subjective Tolerating 6 liters. Feels weak. Objective Data Objective Data Vital Signs: Vital Signs Temp Pulse Resp BP Pulse Ox 36.6 C 66 18 116/58 L 95 07/08/21 10:20 07/08/21 15:00 07/08/21 10:20 07/08/21 10:20 07/08/21 10:20 Oxygen Flow Rate (L/min) 6 Oxygen Delivery Method Nasal Cannula Weight: 86.4 kg Body Mass Index (BMI) 32.5 Intake & Output: Intake and Output for Last 24 Hours 07/06/21 07/07/21 07/08/21 23:59 23:59 23:59 Intake Total 2250 / 2250 1360 / 1360 Output Total 1000 / 1000 Balance 2250 / 2250 360 / 360 Lab / Micro Data Result Diagrams: 07/08/21 06:25 07/08/21 06:25 Labs: Laboratory Results - last 24 hr 07/07/21 13:55: Magnesium 2.6, Ferritin 266 H, Total Bilirubin 0.50, Direct Bilirubin 0.18, AST 35, ALT 23, Alkaline Phosphatase 45, Lactate Dehydrogenase 296 H, Troponin I High Sens 20, C-React Prot Ext Range 57.80 H, Total Protein 8.0, Albumin 3.3, Globulin 4.7 H 07/07/21 13:55: B-Natriuretic Peptide 4.7 07/07/21 13:55: Procalcitonin 1.87 H 07/07/21 17:06: D-Dimer Quant (PE/DVT) 1.04 H* 07/07/21 18:39: Troponin I High Sens 22 07/07/21 18:44: POC Glucose 139 H 07/07/21 20:00: Troponin I High Sens 25 07/07/21 23:57: POC Glucose 111 H 07/08/21 05:39: POC Glucose 91 07/08/21 06:25: WBC 4.8, RBC 4.26, Hgb 12.6, Hct 38.5, MCV 90.4, MCH 29.6, MCHC 32.7, RDW Std Deviation 45.8 H, RDW Coeff of Catina 13.8, Plt Count 108 L, MPV 10.1, Immature Gran % (Auto) 0.400, Neut % (Auto) 88.8 H, Lymph % (Auto) 7.7 L, [place] % (Auto) 3.1, Eos % (Auto) 0.0, Baso % (Auto) 0.0, Absolute Neuts (auto) 4.3, Absolute Lymphs (auto) 0.37 L, Nucleated RBC % 0 07/08/21 06:25: Sodium 142, Potassium 3.9, Chloride 108 H, Carbon Dioxide 23.0, Anion Gap 11, BUN 31 H, Creatinine 1.07 H, Estim Creat Clear Calc 51.30, Est GFR (MDRD) Af Amer 68, Est GFR (MDRD) Non-Af 56 L, BUN/Creatinine Ratio 29.0 H, Glucose 141 H, Calcium 7.6 L, Total Bilirubin 0.50, AST 28, ALT 17, Alkaline Phosphatase 35 L, Total Protein 6.7, Albumin 2.5 L, Globulin 4.2, [place] min/Globulin Ratio 0.6 L 07/08/21 11:46: POC Glucose 90 Micro: Microbiology 07/07/21 21:00 Sputum, Expectorated/Coughed Gram Stain - Final 07/08/21 06:03 Urine, Clean Catch Legionella Antigen - Final 07/08/21 06:03 Urine, Clean Catch Streptococcus pneumoniae Antigen (M - Final 07/07/21 21:16 Mucosa - Nasopharyngeal Respiratory Panel (PCR) - Final Radiography Diagnostic Testing: Radiology Impression Chest CTA 07/07/21 17:51 IMPRESSION: 1. No demonstrated pulmonary embolism or arterial dissection. 2. There is bilateral pneumonia. Electronically Signed: Cem Stoddard MD at 19:00 EDT , Service support , Physical Exam Const alert and no apparent distress Resp normal respiratory effort and no retractions Resp Narrative: coarse breath sounds. Cardio regular rate, regular rhythm, S1 normal heart sound and S2 normal heart sound GI normal to inspection, nondistended, normoactive bowel sounds, soft to palpation, non-tender and non-distended Neuro Sensorium / Orientation: awake and alert Assessment & Plan Assessment/Plan (1) Acute respiratory failure with hypoxia: (2) Pneumonia due to COVID-19 virus: PLAN: 1. acute hypoxic respiratory failure * on 6liters * wean as tolerated 2. COVID 19 pneumonia * unvaccinated * onset 07/03. Quarantine through 07/21 * on dexamethasone through 07/16 * remdesivir through 07/11 3. HTN * stable * lisinopril, HCTZ 4. CKD III * stable 5. VTE prophylaxis: LMWH Charges/Coding Visit Charges Inpatient E&M: 88959 Subs Hosp L2
[2021-07-08] MEDS: Dicyclomine 10 MG Capsule PO ×2 (17:05→22:04)
[2021-07-08] MEDS: dexAMETHasone 4 MG Tablet 6 MG PO (17:05)
[2021-07-08] MEDS: prednisoLONE eye drops (5 mL) 1 DROP OPTH.BTL 1 DRP RIGHT EYE ×2 (17:06→22:04)
[2021-07-08 17:30] LABS: Bedside Glucose 96 mg/dL (70-110)
[2021-07-08] MEDS: Gabapentin 300 MG Capsule PO (22:04)
[2021-07-08] MEDS: Fluticasone 0.05% 1 SPRAY NASAL.SRY 2 SPRAY NASAL (22:04)
[2021-07-08] MEDS: Ondansetron 4 MG/2 ML Vial IV (22:14)
[2021-07-08 22:31] LABS: Bedside Glucose 104 mg/dL (70-110)
[2021-07-09] VITALS (11 sets, daily range): BP systolic 124–137; BP diastolic 57–68; PULSE 63–76; RESP 18–20; TEMP 36.3–36.6; O2SAT 95–99
[2021-07-09] MEDS: Acetaminophen 325 MG Tablet 650 MG PO ×3 (00:53→16:33)
[2021-07-09] MEDS: guaiFENesin 10 ML UDC (200MG/10ML) 20 ML PO (00:54)
[2021-07-09] MEDS: proCHLORPERazine 10 MG/2 ML Vial 5 MG IV ×2 (01:00→11:25)
[2021-07-09] MEDS: 0.9% Saline Lock 10 ML Syringe IV ×3 (01:01→11:26)
[2021-07-09] MEDS: Ibuprofen 600 MG Tablet PO ×3 (01:41→21:02)
[2021-07-09] MEDS: MELATONIN 3 MG TABLET PO ×2 (01:42→21:02)
[2021-07-09] MEDS: Dicyclomine 10 MG Capsule PO ×4 (06:21→21:02)
[2021-07-09] MEDS: Levothyroxine 175 MCG Tablet PO (06:21)
[2021-07-09] MEDS: prednisoLONE eye drops (5 mL) 1 DROP OPTH.BTL 1 DRP RIGHT EYE ×4 (06:21→22:33)
[2021-07-09] MEDS: Ondansetron 4 MG/2 ML Vial IV ×2 (06:21→16:33)
[2021-07-09 06:41] LABS: Absolute Lymphocyte Count 0.38 X10^3/uL (0.83-4.51); Absolute Neutrophil Count 4.3 X10^3/uL (2.0-7.7); Hemoglobin 13.7 g/dL (12.0-15.0); Lymphocyte # 0.38 X10^3/ul (0.83-4.51); Lymphocyte % 7.9 % (19-41); Mean Corp Hgb Conc 32.6 g/dL (32-36); Mean Corpuscular Hgb 29.3 pg (27.0-32.0); Mean Corpuscular Volume 89.7 fL (81-99); Mean Platelet Vol. 10.6 fl (6.2-12.0); Monocyte# 0.14 X10^3/uL; Monocyte% 2.9 % (0-10); NRBC Flagged by Analyzer 0 % (0-5); Neutrophil # 4.27 X10^3/uL (2.7-7.7); Neutrophil % 88.8 % (47-70); POSITIVE DIFFERENTIAL YES; Platelet Count 107 K/mm3 (150-450); RBC Distribution Width CV 13.6 % (11.6-14.6); RBC Distribution Width SD 44.5 fl (35.1-43.9); Red Blood Count 4.68 M/mm3 (4.2-5.4); White Blood Count 4.8 K/mm3 (4.4-11.0)
[2021-07-09 06:52] LABS: Differential Indicated SCAN CRITERIA MET
[2021-07-09 07:05] LABS: Bedside Glucose 139 mg/dL (70-110)
[2021-07-09 07:12] LABS: ALB/GLOB Ratio 0.6 RATIO (0.9-2.4); AST(SGOT) 31 U/L (15-37); Alanine Aminotransfer ALT/SGPT 17 U/L (13-56); Albumin, Serum 2.6 g/dL (3.2-5.0); Alkaline Phosphatase 41 U/L (45-117); Anion Gap 7 (5-15); BUN 30 mg/dL (7-18); BUN/Creat Ratio 32.3 RATIO (10-20); Calcium,Total 8.2 mg/dL (8.5-10.1); Chloride 107 mmol/L (98-107); Creatinine, Serum 0.93 mg/dL (0.55-1.02); EST Glomerular Filtration Rate 66 mL/min (>60); Est Glom Filt Rate - Afr Amer 80 mL/min (>60); Estimated Creatinine Clearance 59.02 ml/min; Globulin 4.5 g/dL (2.2-4.2); Glucose 141 mg/dL (74-106); Potassium 3.9 mmol/L (3.5-5.1); Protein, Total 7.1 g/dL (6.4-8.2); Sodium Level 142 mmol/L (136-145)
[2021-07-09] MEDS: Fenofibrate 145 MG Tablet PO (08:57)
[2021-07-09] MEDS: Famotidine 20 MG Tablet PO ×2 (08:57→21:02)
[2021-07-09] MEDS: hydroCHLOROthiazide 12.5mg 12.5 MG PO (08:57)
[2021-07-09] MEDS: Lisinopril 2.5 MG Tablet PO (08:58)
[2021-07-09] MEDS: dexAMETHasone 4 MG Tablet 6 MG PO (08:58)
[2021-07-09] MEDS: Enoxaparin 30 MG/0.3 ML Syringe SC ×2 (08:59→21:01)
[2021-07-09] MEDS: Insulin Lispro 100 UNIT/ML INSULN.PEN SC ×2 (11:32→16:38)
[2021-07-09 11:55] LABS: Bedside Glucose 240 mg/dL (70-110)
--- NOTE | 2021-07-09 16:09 | PCA ---
Spoke with patient and she state she would like Mayte Rueda, , added to her contacts and that it is okay to give her information regarding her care.
--- NOTE | 2021-07-09 17:04 | PN.HOSP_ITS ---
Subjective Subjective Patient is short of breath. Complain of burning retrosternal stomach pain to chest. Patient is crying. Objective Data Objective Data Vital Signs: Vital Signs Temp Pulse Resp BP Pulse Ox 97.8 F 76 18 136/66 H 99 07/09/21 16:28 07/09/21 16:28 07/09/21 16:28 07/09/21 16:28 07/09/21 16:28 Oxygen Flow Rate (L/min) 5 Oxygen Delivery Method Nasal Cannula Weight: 189 lb 9.561 oz Body Mass Index (BMI) 32.5 Intake & Output: Intake and Output for Last 24 Hours 07/07/21 07/08/21 07/09/21 23:59 23:59 23:59 Intake Total 2250 / 2250 1850 / 1970 670 / 670 Output Total 1000 / 1000 Balance 2250 / 2250 850 / 970 670 / 670 Lab / Micro Data Result Diagrams: 07/09/21 06:10 07/09/21 06:10 Labs: Laboratory Results - last 24 hr 07/08/21 17:04: POC Glucose 96 07/08/21 21:59: POC Glucose 104 07/09/21 06:10: WBC 4.8, RBC 4.68, Hgb 13.7, Hct 42.0, MCV 89.7, MCH 29.3, MCHC 32.6, RDW Std Deviation 44.5 H, RDW Coeff of Catina 13.6, Plt Count 107 L, MPV 10.6, Immature Gran % (Auto) 0.400, Neut % (Auto) 88.8 H, Lymph % (Auto) 7.9 L, [place] % (Auto) 2.9, Eos % (Auto) 0.0, Baso % (Auto) 0.0, Absolute Neuts (auto) 4.3, Absolute Lymphs (auto) 0.38 L, Nucleated RBC % 0 07/09/21 06:10: Sodium 142, Potassium 3.9, Chloride 107, Carbon Dioxide 28.0, Anion Gap 7, BUN 30 H, Creatinine 0.93, Estim Creat Clear Calc 59.02, Est GFR (MDRD) Af Amer 80, Est GFR (MDRD) Non-Af 66, BUN/Creatinine Ratio 32.3 H, Glucose 141 H, Calcium 8.2 L, Total Bilirubin 0.40, AST 31, ALT 17, Alkaline Phosphatase 41 L, Total Protein 7.1, Albumin 2.6 L, Globulin 4.5 H, Albumin/Globulin Ratio 0.6 L 07/09/21 06:20: POC Glucose 139 H 07/09/21 11:32: POC Glucose 240 H Micro: Microbiology 07/07/21 21:00 Sputum, Expectorated/Coughed Gram Stain - Final 07/07/21 21:00 Sputum, Expectorated/Coughed Respiratory Culture - Preliminary 07/08/21 06:03 Urine, Clean Catch Legionella Antigen - Final 07/08/21 06:03 Urine, Clean Catch Streptococcus pneumoniae Antigen (M - Final 07/07/21 21:16 Mucosa - Nasopharyngeal Respiratory Panel (PCR) - Final Physical Exam Narrative General: Alert, Oriented x3, Cooperative HEENT: Atraumatic, PERRLA, EOMI, Normocephalic Oral: No Gingival or Mucosal Lesions/ Ulcerations Neck: Supple, No JVD, Negative Carotid Bruits Lungs: Air entry diminished in bilateral lung bases. Mild bibasilar crepitat ions. Cardiovascular: Regular rate, Regular Rhythm, Normal S1, Normal S2, No murmurs Abdomen: Bowel Sounds Present, Soft, Non Tender, Non-Distended : No renal angle tenderness. No suprapubic tenderness. Extremities: No edema, Capillary Refill Less than 3 Seconds Skin: No rashes, No breakdown Musculoskeletal: No Tenderness to Palpation of Joints or Extremities Neurological: Cranial nerves II-XII grossly intact, DTR 2+/4 and Symmetrical, Neuro grossly intact Psych/Mental Status: Flat affect. Assessment & Plan Assessment/Plan (1) Acute respiratory failure with hypoxia: (2) Pneumonia due to COVID-19 virus: PLAN: 1. acute hypoxic respiratory failure secondary to bilateral COVID-19 pneumonia: Patient is unvaccinated. On dexamethasone through his 07/16 and remdesivir through 07/11. Quarantine through 07/21. * on 6liters * wean as tolerated 2. Hypertension: Controlled. * lisinopril, HCTZ 4. CKD III A: Creatinine is stable. 5. Retrosternal pain possible GERD: Started on Protonix 40 mg twice daily. VTE prophylaxis: LMWH Charges/Coding Visit Charges Inpatient E&M: 54282 Subs Hosp L2
[2021-07-09 17:41] LABS: Bedside Glucose 192 mg/dL (70-110)
[2021-07-09] MEDS: Gabapentin 300 MG Capsule PO (21:02)
[2021-07-09] MEDS: Fluticasone 0.05% 1 SPRAY NASAL.SRY 2 SPRAY NASAL (21:04)
[2021-07-09 21:10] LABS: Bedside Glucose 157 mg/dL (70-110)
[2021-07-09] MEDS: Atorvastatin Calcium 20 MG Tablet PO (22:29)
--- NOTE | 2021-07-09 23:43 | NURSING ---
This nurse is taking over care for pt now. This nurse is aware of evening Vital Signs and shift assessment done by Mario Francis RN
[2021-07-10] VITALS (16 sets, daily range): BP systolic 119–144; BP diastolic 58–86; PULSE 64–77; RESP 14–20; TEMP 35.5–36.4; O2SAT 88–98
[2021-07-10] MEDS: prednisoLONE eye drops (5 mL) 1 DROP OPTH.BTL 1 DRP RIGHT EYE ×2 (06:13→11:49)
[2021-07-10] MEDS: Levothyroxine 175 MCG Tablet PO (06:14)
[2021-07-10] MEDS: Dicyclomine 10 MG Capsule PO ×3 (06:14→20:58)
--- NOTE | 2021-07-10 06:26 | RAD_ITS ---
STUDY: X-RAY CHEST REASON FOR EXAM: Female, 55 years old. Pain TECHNIQUE: Single AP portable view of the chest. COMPARISON: July 07, 2021 chest x-ray FINDINGS: There is patchy groundglass opacity in the right upper lobe, right lower and left lower lobe. There is no demonstrated pleural abnormality. There is borderline cardiomegaly. Normal mediastinum and yevgeniy. Normal visualized pulmonary arteries. Normal visualized aortic arch and descending thoracic aorta. Normal visualized thoracic spine. Normal visualized ribs, clavicles, and shoulders. There is no demonstrated abnormality of the visualized soft tissue structures of the upper abdomen. RAD/Chest 1 View (Portable) IMPRESSION: Patchy groundglass opacities suspicious for viral pneumonia such as Covid Electronically Signed: Mara Baron MD at 7:12 EDT Tel , Service support ,
--- NOTE | 2021-07-10 06:26 | NURSING ---
C/O numbness to Lt upper chest radiating to LT armpit. States its sore. Having Nausea but not new. Dr. Trent aware, ordered EKG. Pt spo2 also only 89-90% on 8L NC. This nurse increased to 6, then 7, then 8L. CPS aware of the above, coming to do EKG and look at oxygen level.
--- NOTE | 2021-07-10 06:28 | EKG12_ITS ---
Test Reason : CHEST PAIN Blood Pressure : / mmHG Vent. Rate : 072 BPM Atrial Rate : 072 BPM P-R Int : 158 ms QRS Dur : 094 ms QT Int : 454 ms P-R-T Axes : 027 -06 037 degrees QTc Int : 497 ms Normal sinus rhythm Prolonged QT Abnormal ECG When compared with ECG of 08-JUL-2021 05:30, No significant change was found Confirmed by JACQUIE DUNNE, XIMENA ([id number]), international editorial producer ALICJA DE LA PAZ ([id number]) on 07/15/2021 9:55:30 AM Referred By: BRYANNA Confirmed By:XIMENA DHILLON MD
[2021-07-10 06:50] LABS: Absolute Lymphocyte Count 0.63 X10^3/uL (0.83-4.51); Absolute Neutrophil Count 4.6 X10^3/uL (2.0-7.7); Basophil# 0.01 X10^3/uL; Basophil% 0.2 % (0-1); Hematocrit 42.5 % (37-47); Hemoglobin 13.6 g/dL (12.0-15.0); Lymphocyte # 0.63 X10^3/ul (0.83-4.51); Lymphocyte % 11.7 % (19-41); Mean Corpuscular Hgb 28.4 pg (27.0-32.0); Mean Corpuscular Volume 88.7 fL (81-99); Mean Platelet Vol. 10.2 fl (6.2-12.0); Monocyte# 0.16 X10^3/uL; NRBC Flagged by Analyzer 0 % (0-5); Neutrophil # 4.58 X10^3/uL (2.7-7.7); Neutrophil % 84.7 % (47-70); POSITIVE MORPHOLOGY YES; Platelet Count 142 K/mm3 (150-450); RBC Distribution Width CV 13.4 % (11.6-14.6); RBC Distribution Width SD 43.9 fl (35.1-43.9); Red Blood Count 4.79 M/mm3 (4.2-5.4); White Blood Count 5.4 K/mm3 (4.4-11.0)
--- NOTE | 2021-07-10 06:56 | NURSING ---
Airvo applied at this time.
[2021-07-10 07:00] LABS: Differential Indicated SCAN CRITERIA MET
[2021-07-10 07:06] LABS: Bedside Glucose 134 mg/dL (70-110)
[2021-07-10 07:38] LABS: ALB/GLOB Ratio 0.6 RATIO (0.9-2.4); AST(SGOT) 25 U/L (15-37); Alanine Aminotransfer ALT/SGPT 15 U/L (13-56); Albumin, Serum 2.5 g/dL (3.2-5.0); Alkaline Phosphatase 42 U/L (45-117); Anion Gap 9 (5-15); BUN 34 mg/dL (7-18); BUN/Creat Ratio 32.4 RATIO (10-20); Calcium,Total 8.6 mg/dL (8.5-10.1); Chloride 107 mmol/L (98-107); Creatinine, Serum 1.05 mg/dL (0.55-1.02); EST Glomerular Filtration Rate 58 mL/min (>60); Est Glom Filt Rate - Afr Amer 70 mL/min (>60); Estimated Creatinine Clearance 52.28 ml/min; Globulin 4.5 g/dL (2.2-4.2); Glucose 152 mg/dL (74-106); Potassium 3.7 mmol/L (3.5-5.1); Sodium Level 143 mmol/L (136-145)
[2021-07-10 07:39] LABS: Reactive Lymphocyte RARE
[2021-07-10] MEDS: Famotidine 20 MG Tablet PO (08:47)
[2021-07-10] MEDS: Ibuprofen 600 MG Tablet PO (08:47)
[2021-07-10] MEDS: Pantoprazole Sodium 40 MG Tablet PO ×2 (08:48→20:58)
[2021-07-10] MEDS: guaiFENesin 10 ML UDC (200MG/10ML) 20 ML PO (08:48)
[2021-07-10] MEDS: Enoxaparin 30 MG/0.3 ML Syringe SC ×2 (08:49→20:58)
[2021-07-10] MEDS: Ondansetron 4 MG/2 ML Vial IV (08:50)
[2021-07-10 09:05] LABS: Bedside Glucose 130 mg/dL (70-110)
[2021-07-10] MEDS: Morphine 2 MG/ML Syringe IV ×3 (09:44→20:57)
[2021-07-10] MEDS: 0.9% Saline Lock 10 ML Syringe IV ×3 (09:45→20:58)
[2021-07-10 10:58] LABS: Troponin-I HS 24 pg/mL (3.0-54.0)
[2021-07-10] MEDS: Lisinopril 2.5 MG Tablet PO (11:37)
[2021-07-10] MEDS: hydroCHLOROthiazide 12.5mg 12.5 MG PO (11:38)
[2021-07-10] MEDS: Fenofibrate 145 MG Tablet PO (11:38)
[2021-07-10] MEDS: dexAMETHasone 4 MG Tablet 6 MG PO (11:38)
[2021-07-10 12:01] LABS: Bedside Glucose 134 mg/dL (70-110)
[2021-07-10] MEDS: proCHLORPERazine 10 MG/2 ML Vial 5 MG IV ×2 (14:01→20:58)
--- NOTE | 2021-07-10 16:37 | PN.HOSP_ITS ---
Subjective Subjective Complain of bilateral rib pain and xiphisternum epigastric region. Patient wants morphine. She states he has not been on oral opioids at home therefore less likely opioid dependence. OARSS report shows narcotic score 60, overdose risk score 190. Objective Data Objective Data Vital Signs: Vital Signs Temp Pulse Resp BP Pulse Ox 96.1 F L 64 18 144/67 H 96 07/10/21 14:00 07/10/21 14:28 07/10/21 14:00 07/10/21 14:00 07/10/21 14:09 Oxygen Flow Rate (L/min) 9 Oxygen Delivery Method Nasal Cannula Weight: 186 lb 9 oz Body Mass Index (BMI) 32.5 Intake & Output: Intake and Output for Last 24 Hours 07/08/21 07/09/21 07/10/21 23:59 23:59 23:59 Intake Total 1850 / 1970 780 / 780 490 / 490 Output Total 1000 / 1000 Balance 850 / 970 780 / 780 490 / 490 Lab / Micro Data Result Diagrams: 07/10/21 06:20 07/10/21 06:20 Labs: Laboratory Results - last 24 hr 07/09/21 16:32: POC Glucose 192 H 07/09/21 21:00: POC Glucose 157 H 07/10/21 06:20: WBC 5.4, RBC 4.79, Hgb 13.6, Hct 42.5, MCV 88.7, MCH 28.4, MCHC 32.0, RDW Std Deviation 43.9, RDW Coeff of Catina 13.4, Plt Count 142 L, MPV 10.2, Immature Gran % (Auto) 0.400, Neut % (Auto) 84.7 H, Lymph % (Auto) 11.7 L, [place] % (Auto) 3.0, Eos % (Auto) 0.0, Baso % (Auto) 0.2, Absolute Neuts (auto) 4.6, Absolute Lymphs (auto) 0.63 L, Nucleated RBC % 0, Reactive Lymphocytes RARE 07/10/21 06:20: Sodium 143, Potassium 3.7, Chloride 107, Carbon Dioxide 27.0, Anion Gap 9, BUN 34 H, Creatinine 1.05 H, Estim Creat Clear Calc 52.28, Est GFR (MDRD) Af Amer 70, Est GFR (MDRD) Non-Af 58 L, BUN/Creatinine Ratio 32.4 H, Glucose 152 H, Calcium 8.6, Total Bilirubin 0.50, AST 25, ALT 15, Alkaline Phosphatase 42 L, Total Protein 7.0, Albumin 2.5 L, Globulin 4.5 H, Albumin/Globulin Ratio 0.6 L 07/10/21 06:50: POC Glucose 134 H 07/10/21 08:45: POC Glucose 130 H 07/10/21 09:35: Troponin I High Sens 24 07/10/21 11:48: POC Glucose 134 H Micro: Microbiology 07/07/21 21:00 Sputum, Expectorated/Coughed Gram Stain - Final 07/07/21 21:00 Sputum, Expectorated/Coughed Respiratory Culture - Final 07/08/21 06:03 Urine, Clean Catch Legionella Antigen - Final 07/08/21 06:03 Urine, Clean Catch Streptococcus pneumoniae Antigen (M - Final 07/07/21 21:16 Mucosa - Nasopharyngeal Respiratory Panel (PCR) - Final Radiography Diagnostic Testing: Radiology Impression Chest X-Ray 07/10/21 06:26 IMPRESSION: Patchy groundglass opacities suspicious for viral pneumonia such as Covid Electronically Signed: Mara Baron MD at 7:12 EDT Tel , Service support , Physical Exam Narrative General: Alert, Oriented x3, Cooperative HEENT: Atraumatic, PERRLA, EOMI, Normocephalic Oral: No Gingival or Mucosal Lesions/ Ulcerations Neck: Supple, No JVD, Negative Carotid Bruits Lungs: Tenderness over chest wall, muscle tenderness. Air entry diminished in bilateral lung bases. Mild bibasilar crepitations. Cardiovascular: Regular rate, Regular Rhythm, Normal S1, Normal S2, No murmurs Abdomen: Bowel Sounds Present, Soft, Non Tender, Non-Distended : No renal angle tenderness. No suprapubic tenderness. Extremities: No edema, Capillary Refill Less than 3 Seconds Skin: No rashes, No breakdown Musculoskeletal: No Tenderness to Palpation of Joints or Extremities Neurological: Cranial nerves II-XII grossly intact, DTR 2+/4 and Symmetrical, Neuro grossly intact Psych/Mental Status: Flat affect. Assessment & Plan Assessment/Plan (1) Acute respiratory failure with hypoxia: (2) Pneumonia due to COVID-19 virus: PLAN: 1. acute hypoxic respiratory failure secondary to bilateral COVID-19 pneumonia: Patient is unvaccinated. On dexamethasone through his 07/16 and remdesivir through 07/11. Quarantine through 07/21. 07/10: On 9 L of oxygen. Pleuritic chest pain on morphine. PDMP report reviewed. Continue incentive spirometry. BUN/creatinine elevated. Creatinine went up from 0.9-1.05, still on baseline. 2. Hypertension: Controlled. * lisinopril, HCTZ 4. CKD III A: Creatinine is stable as mentioned above 5. Retrosternal pain possible GERD: Started on Protonix 40 mg twice daily. VTE prophylaxis: LMWH Charges/Coding Visit Charges Inpatient E&M: 83550 Subs Hosp L2
[2021-07-10] MEDS: Insulin Lispro 100 UNIT/ML INSULN.PEN 10 UNIT SC (17:30)
[2021-07-10] MEDS: Insulin Lispro 100 UNIT/ML INSULN.PEN SC ×2 (17:30→21:04)
[2021-07-10 17:40] LABS: Bedside Glucose 204 mg/dL (70-110)
[2021-07-10] MEDS: Gabapentin 300 MG Capsule PO (20:58)
[2021-07-10] MEDS: Atorvastatin Calcium 20 MG Tablet PO (20:58)
[2021-07-10] MEDS: Fluticasone 0.05% 1 SPRAY NASAL.SRY 2 SPRAY NASAL (20:59)
[2021-07-10 21:15] LABS: Bedside Glucose 194 mg/dL (70-110)
[2021-07-11] VITALS (24 sets, daily range): BP systolic 86–125; BP diastolic 54–75; PULSE 71–88; RESP 12–36; TEMP 35.6–36.6; O2SAT 65–100
[2021-07-11] MEDS: prednisoLONE eye drops (5 mL) 1 DROP OPTH.BTL 1 DRP RIGHT EYE ×5 (00:14→21:46)
[2021-07-11] MEDS: guaiFENesin/Codeine 5 ML UDC 10 ML PO ×2 (04:47→21:44)
--- NOTE | 2021-07-11 04:56 | PCM.HOSP.N ---
Hospitalist Note Called for worsening hypoxia. Patient had been stable on 9 L nasal cannula but had a coughing spell with some emesis because she was coughing so hard and worsening hypoxia. She is currently on 15 L with oxygen saturations in the low 80s. There is no air Vo available at this time. We will trial BiPAP and give her Compazine to hopefully avoid any further emesis. And discussed with the patient the possible need for intubation if BiPAP does not remedy her hypoxia.
[2021-07-11] MEDS: proCHLORPERazine 10 MG/2 ML Vial 5 MG IV ×2 (04:57→11:38)
[2021-07-11] MEDS: 0.9% Saline Lock 10 ML Syringe IV (04:58)
[2021-07-11 05:30] LABS: Bedside Glucose 129 mg/dL (70-110)
[2021-07-11] MEDS: Furosemide 40 MG/4 ML Vial IV ×3 (06:58→17:51)
[2021-07-11 07:29] LABS: Absolute Lymphocyte Count 0.79 X10^3/uL (0.83-4.51); Absolute Neutrophil Count 5.4 X10^3/uL (2.0-7.7); Basophil# 0.01 X10^3/uL; Basophil% 0.2 % (0-1); Hemoglobin 13.7 g/dL (12.0-15.0); Lymphocyte # 0.79 X10^3/ul (0.83-4.51); Mean Corp Hgb Conc 32.6 g/dL (32-36); Mean Corpuscular Hgb 29.1 pg (27.0-32.0); Mean Corpuscular Volume 89.2 fL (81-99); Mean Platelet Vol. 10.8 fl (6.2-12.0); Monocyte# 0.36 X10^3/uL; Monocyte% 5.5 % (0-10); NRBC Flagged by Analyzer 0 % (0-5); Neutrophil # 5.41 X10^3/uL (2.7-7.7); Platelet Count 143 K/mm3 (150-450); RBC Distribution Width CV 13.2 % (11.6-14.6); RBC Distribution Width SD 43.6 fl (35.1-43.9); Red Blood Count 4.71 M/mm3 (4.2-5.4); White Blood Count 6.6 K/mm3 (4.4-11.0)
[2021-07-11 07:47] LABS: ALB/GLOB Ratio 0.5 RATIO (0.9-2.4); AST(SGOT) 34 U/L (15-37); Alanine Aminotransfer ALT/SGPT 17 U/L (13-56); Albumin, Serum 2.4 g/dL (3.2-5.0); Alkaline Phosphatase 45 U/L (45-117); Anion Gap 7 (5-15); BUN 31 mg/dL (7-18); BUN/Creat Ratio 34.7 RATIO (10-20); Calcium,Total 8.6 mg/dL (8.5-10.1); Chloride 106 mmol/L (98-107); Creatinine, Serum 0.89 mg/dL (0.55-1.02); EST Glomerular Filtration Rate 70 mL/min (>60); Est Glom Filt Rate - Afr Amer 84 mL/min (>60); Estimated Creatinine Clearance 61.67 ml/min; Globulin 4.5 g/dL (2.2-4.2); Glucose 126 mg/dL (74-106); Protein, Total 6.9 g/dL (6.4-8.2); Sodium Level 139 mmol/L (136-145)
[2021-07-11 09:00] LABS: Bedside Glucose 115 mg/dL (70-110)
--- NOTE | 2021-07-11 09:47 | CON.PCM.CC_ITS ---
Assessment & Plan Assessment/Plan (1) Acute respiratory failure with hypoxia: (2) Pneumonia due to COVID-19 virus: PLAN: RECOMMENDATIONS: 1. Wean supplemental oxygen to maintain saturations at or above 90%. 2. Continue Decadron to complete 10 days of therapy. 3. Continue empiric antimicrobials. 4. IV diuretic therapy as tolerated by hemodynamics and renal function. 5. Awake prone positioning was encouraged. 6. Infectious diseases consultation is pending. IMPRESSIONS: 1. Acute hypoxemic respiratory failure secondary to COVID-19 pneumonia The patient presented to the hospital with worsening dyspnea and hypoxemia. The patient's oxygenation status did worsen this morning in the setting of significant coughing and emesis. Therefore, she was also initiated on empiric antimicrobials. CTA chest showed no evidence for PE. Therefore, twice daily Lovenox will be continued. Decadron has been initiated and will be continued to complete a 10-day treatment course. The patient did receive remdesivir. She will be continued on supplemental oxygen to maintain saturations at or above 90%. Given that her volume status appears to be on the positive side, will start IV Lasix today. Infectious diseases consultation is pending. 2. Hypertension/hyperlipidemia/CKD/obesity/diabetes mellitus Complicates care, management, recovery and prognosis. Continue home medications as indicated, along with basal and sliding scale insulin coverage. This note was generated with Expa dictation software. It may contain incorrect words, spelling, and punctuation that were not noted in checking the note before signing. HPI Consult Data Date of Consult: 07/12/21 HPI Narrative Reason for Consultation: Acute hypoxemic respiratory failure secondary to COVID- 19 pneumonia HPI Narrative: The patient is a 55-year-old female, with a history as outlined below, who presented to the emergency department on July 07 via EMS with increasing dyspnea and hypoxemia. The patient symptoms initially began on July 04. The patient was noted to be hypoxemic at that time. The patient was discharged home on supplemental oxygen and a prescription for Decadron. She did test positive for coronavirus via rapid antigen screening on July 06. On presentation to the emergency department, the patient was noted to be afebrile and hemodynamically stable. Initial laboratory evaluation revealed no evidence of a leukocytosis. The patient was thrombocytopenic with a platelet count of 117,000. D-dimer was noted to be 1.04. Chemistry profile was notable for a creatinine of 1.30. CRP was elevated at 57.8. Procalcitonin was noted to be 1.87. CTA chest showed no evidence for pulmonary embolism. Bilateral pneumonia was noted. The patient was subsequently placed on empiric antimicrobials, remdesivir, prophylactic Lovenox and Decadron. The patient was subsequently admitted to the progressive care unit for further management. The patient's oxygenation status has continued to worsen over the course of her hospitalization. She is now requiring BiPAP support with an FiO2 of 70%. She is currently documented to be overall net +4.7 L for the hospital admission. FORMERLY [facility] Medical History Former tobacco use Hypercholesteremia Hypertension Hypothyroid Kidney stones Migraines Obesity Type 2 diabetes mellitus Home Medications fluticasone propionate 2 spray NASAL QHS 05/24/15 [History Last Taken 03/24/21] Trulicity 1.5 mg SUBCUT JOHNSON 03/25/21 [History Last Taken 03/23/21] estradiol 3 g VAGINAL .2X/WEEK 03/25/21 [History Last Taken Unknown] fenofibrate 160 mg PO DAILY 03/25/21 [History Last Taken 03/24/21] gabapentin 300 mg PO QHS 03/25/21 [History Last Taken 03/24/21] levothyroxine 175 mcg PO DAILY 03/25/21 [History Last Taken 03/24/21] omega-3 fatty acids-vitamin E 1 cap PO DAILY 03/25/21 [History Last Taken 03/24/21] vitamin E 400 unit PO DAILY 03/25/21 [History Last Taken 03/24/21] dicyclomine 10 mg PO ACHS 07/06/21 [History Last Taken Unknown] hydrochlorothiazide 12.5 mg PO DAILY 07/06/21 [History Last Taken Unknown] insulin degludec [Tresiba FlexTouch U-100] 52 unit SUBCUT QHS 07/06/21 [History Last Taken Unknown] ketorolac 1 drp OPHTHALMIC (EYE) Q6H 07/06/21 [History Last Taken Unknown] lisinopril 2.5 mg PO DAILY 07/06/21 [History Last Taken Unknown] meloxicam 15 mg PO DAILY PRN 07/06/21 [History Last Taken Unknown] ondansetron 4 mg PO Q8H PRN #10 tab 07/06/21 [Rx Last Taken Unknown] prednisolone acetate 1 drp OPHTHALMIC (EYE) Q6H 07/06/21 [History Last Taken Unknown] rosuvastatin 10 mg PO DAILY 07/06/21 [History Last Taken Unknown] dexamethasone [Decadron] 6 mg PO DAILY 07/08/21 [History Last Taken Unknown] insulin lispro [Humalog KwikPen Insulin] 10 unit SUBCUT TID 07/08/21 [History Last Taken Unknown] Allergy/AdvReac Type Severity Reaction Status Date / Time metformin AdvReac Diarrhea Verified 07/07/21 13:18 oxycodone [From Percocet] AdvReac upset Verified 07/07/21 13:18 stomach/off balance Family History (Updated 07/07/21 @ 20:[address] Lennie Khalil MD) Mother Diabetes Father Diabetes Surgical History History of appendectomy Previous section Social History (Updated 07/07/21 @ 20:[address] Lennie Khalil MD) household members: none Smoking Status: Former smoker how long ago did patient quit smoking: Quit cigarette tobacco 4-6 years prior, 1 ppd since teenager until quit. alcohol intake: never substance use type: does not use ROS Constitutional Constitutional: Reports body ache(s), chills, fever(s) and malaise Eyes Eyes: Denies blurry vision or change in vision ENT HEENT: Reports headache(s); Denies dizziness or epistaxis Cardiovascular Cardiovascular: Reports dyspnea; Denies chest pain Respiratory/Chest Respiratory/Chest: Reports cough and dyspnea Gastrointestinal Gastrointestinal: Reports abdominal pain and nausea Genitourinary Genitourinary: Denies difficulty urinating or dysuria Musculoskeletal Musculoskeletal: Reports myalgias Integumentary Integumentary: Denies lesions, rash or skin ulcer Neurologic Neurologic: Denies abnormal gait or abnormal speech Psychiatric Psychiatric: Denies anxiety or depression Endocrine Endocrinology: Reports fatigue Hematologic/Lymphatic Hematologic/Lymphatic: Denies easy bleeding or easy bruising Physical Exam Const alert General Appearance: cooperative Nutritional Appearance: obese HEENT normocephalic and head/scalp atraumatic Eyes PERRL and EOMs intact bilaterally Neck supple General: trachea midline Chest inspection of chest normal Resp Effort and Inspection: tachypneic Auscultation: diminished lung sounds Cardio regular rate and regular rhythm GI normal to inspection, nondistended, normoactive bowel sounds Extremity no clubbing, cyanosis or edema Skin no rashes or lesions noted Neuro moves all extremities and no focal motor deficits Psych Mood & Affect: flat affect Lab / Micro Data Result Diagrams: 07/12/21 07:10 07/12/21 07:10 Labs: Laboratory Results - last 24 hr 07/10/21 09:35: Troponin I High Sens 24 07/10/21 11:48: POC Glucose 134 H 07/10/21 17:29: POC Glucose 204 H 07/10/21 21:02: POC Glucose 194 H 07/11/21 04:55: POC Glucose 129 H 07/11/21 07:00: WBC 6.6, RBC 4.71, Hgb 13.7, Hct 42.0, MCV 89.2, MCH 29.1, MCHC 32.6, RDW Std Deviation 43.6, RDW Coeff of Catina 13.2, Plt Count 143 L, MPV 10.8, Immature Gran % (Auto) 0.300, Neut % (Auto) 82.0 H, Lymph % (Auto) 12.0 L, [place] % (Auto) 5.5, Eos % (Auto) 0.0, Baso % (Auto) 0.2, Absolute Neuts (auto) 5.4, Absolute Lymphs (auto) 0.79 L, Nucleated RBC % 0 07/11/21 07:00: Sodium 139, Potassium 4.0, Chloride 106, Carbon Dioxide 26.0, Anion Gap 7, BUN 31 H, Creatinine 0.89, Estim Creat Clear Calc 61.67, Est GFR (MDRD) Af Amer 84, Est GFR (MDRD) Non-Af 70, BUN/Creatinine Ratio 34.7 H, Glucose 126 H, Calcium 8.6, Total Bilirubin 0.70, AST 34, ALT 17, Alkaline Phosphatase 45, Total Protein 6.9, Albumin 2.4 L, Globulin 4.5 H, Albumin/Globulin Ratio 0.5 L 07/11/21 08:53: POC Glucose 115 H Micro: Microbiology 07/07/21 21:00 Sputum, Expectorated/Coughed Gram Stain - Final 07/07/21 21:00 Sputum, Expectorated/Coughed Respiratory Culture - Final Charges/Coding Visit Charges Inpatient E&M: 57201 Init Hosp L3
[2021-07-11] MEDS: dexAMETHasone 4 MG Tablet 6 MG PO (11:33)
[2021-07-11] MEDS: Enoxaparin 30 MG/0.3 ML Syringe SC ×2 (11:34→21:45)
[2021-07-11] MEDS: Pantoprazole Sodium 40 MG Tablet PO ×2 (11:34→21:45)
[2021-07-11] MEDS: Lisinopril 2.5 MG Tablet PO (11:38)
[2021-07-11] MEDS: Fenofibrate 145 MG Tablet PO (11:38)
[2021-07-11] MEDS: Dicyclomine 10 MG Capsule PO ×3 (11:53→21:45)
[2021-07-11 12:40] LABS: Bedside Glucose 107 mg/dL (70-110)
--- NOTE | 2021-07-11 15:57 | PN.HOSP_ITS ---
Subjective Subjective Increased oxygen demand. Placed on BiPAP. Objective Data Objective Data Vital Signs: Vital Signs Temp Pulse Resp BP Pulse Ox 35.6 C L 74 16 111/66 93 07/11/21 14:55 07/11/21 15:00 07/11/21 14:55 07/11/21 14:55 07/11/21 14:55 Oxygen Flow Rate (L/min) 15 Oxygen Delivery Method Nasal Cannula Weight: 84.5 kg Body Mass Index (BMI) 32.5 Intake & Output: Intake and Output for Last 24 Hours 07/09/21 07/10/21 07/11/21 23:59 23:59 23:59 Intake Total 780 / 780 1010 / 1010 500 / 500 Output Total 200 / 200 Balance 780 / 780 1010 / 1010 300 / 300 Lab / Micro Data Result Diagrams: 07/11/21 07:00 07/11/21 07:00 Labs: Laboratory Results - last 24 hr 07/10/21 17:29: POC Glucose 204 H 07/10/21 21:02: POC Glucose 194 H 07/11/21 04:55: POC Glucose 129 H 07/11/21 07:00: WBC 6.6, RBC 4.71, Hgb 13.7, Hct 42.0, MCV 89.2, MCH 29.1, MCHC 32.6, RDW Std Deviation 43.6, RDW Coeff of Catina 13.2, Plt Count 143 L, MPV 10.8, Immature Gran % (Auto) 0.300, Neut % (Auto) 82.0 H, Lymph % (Auto) 12.0 L, [place] % (Auto) 5.5, Eos % (Auto) 0.0, Baso % (Auto) 0.2, Absolute Neuts (auto) 5.4, Absolute Lymphs (auto) 0.79 L, Nucleated RBC % 0 07/11/21 07:00: Sodium 139, Potassium 4.0, Chloride 106, Carbon Dioxide 26.0, Anion Gap 7, BUN 31 H, Creatinine 0.89, Estim Creat Clear Calc 61.67, Est GFR (MDRD) Af Amer 84, Est GFR (MDRD) Non-Af 70, BUN/Creatinine Ratio 34.7 H, Glucose 126 H, Calcium 8.6, Total Bilirubin 0.70, AST 34, ALT 17, Alkaline Phosphatase 45, Total Protein 6.9, Albumin 2.4 L, Globulin 4.5 H, Albumin/Globulin Ratio 0.5 L 07/11/21 08:53: POC Glucose 115 H 07/11/21 11:31: POC Glucose 107 Micro: Microbiology 07/07/21 21:00 Sputum, Expectorated/Coughed Gram Stain - Final 07/07/21 21:00 Sputum, Expectorated/Coughed Respiratory Culture - Final 07/08/21 06:03 Urine, Clean Catch Legionella Antigen - Final 07/08/21 06:03 Urine, Clean Catch Streptococcus pneumoniae Antigen (M - Final 07/07/21 21:16 Mucosa - Nasopharyngeal Respiratory Panel (PCR) - Final Physical Exam Const alert and no apparent distress Resp normal respiratory effort Resp Narrative: coarse breath sounds. Cardio regular rate, regular rhythm, S1 normal heart sound and S2 normal heart sound GI normal to inspection, nondistended, normoactive bowel sounds, soft to palpation, non-tender and non-distended Neuro Sensorium / Orientation: awake and alert Assessment & Plan Assessment/Plan (1) Acute respiratory failure with hypoxia: (2) Pneumonia due to COVID-19 virus: PLAN: 1. acute hypoxic respiratory failure secondary to bilateral COVID-19 pneumonia: Patient is unvaccinated. On dexamethasone through his 07/16 and remdesivir through 07/11. Quarantine through 07/21. 07/10: On 9 L of oxygen. Pleuritic chest pain on morphine. PDMP report reviewed. Continue incentive spirometry. BUN/creatinine elevated. Creatinine went up from 0.9-1.05, still on baseline. Started on empiric Pipracil/tazobactam. Started on baricitinib through or discharge which ever comes first. 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 2. Hypertension: Controlled. * lisinopril, HCTZ 4. CKD III A: Creatinine is stable as mentioned above 5. Retrosternal pain possible GERD: Started on Protonix 40 mg twice daily. VTE prophylaxis: LMWH Charges/Coding Visit Charges Inpatient E&M: 50335 Subs Hosp L2
--- NOTE | 2021-07-11 16:25 | CON.PCM.ID_ITS ---
Assessment & Plan Assessment/Plan (1) Pneumonia due to COVID-19 virus: PLAN: Sx started 07/04. Now worsening O2. On dex, remdesivir. Reviewed EUA and risks/benefits, will start baricitinib. Zosyn added today, sputum cx pending. No fever, normal wbc. overall low suspicion for bacterial superinfection. Will follow, thank you (2) Acute respiratory failure with hypoxia: HPI Consult Data Date of Consult: 07/11/21 HPI Narrative HPI Narrative: BETTY AGARWAL, is a 55 F who presented with sx starting 07/04. Unvaccinated. Lives with son who feels fine. C/o fever, chills, cough, dyspnea, nausea, diarrhea, aches, headache. Came to ED, admitted on dex, remdesivir. Worsening O2, was started on zosyn. Full ROS performed and neg except as noted above. COUNTS INCLUDE 234 BEDS AT THE [facility] Medical History Former tobacco use Hypercholesteremia Hypertension Hypothyroid Kidney stones Migraines Obesity Type 2 diabetes mellitus Home Medications fluticasone propionate 2 spray NASAL QHS 05/24/15 [History Last Taken 03/24/21] Trulicity 1.5 mg SUBCUT JOHNSON 03/25/21 [History Last Taken 03/23/21] estradiol 3 g VAGINAL .2X/WEEK 03/25/21 [History Last Taken Unknown] fenofibrate 160 mg PO DAILY 03/25/21 [History Last Taken 03/24/21] gabapentin 300 mg PO QHS 03/25/21 [History Last Taken 03/24/21] levothyroxine 175 mcg PO DAILY 03/25/21 [History Last Taken 03/24/21] omega-3 fatty acids-vitamin E 1 cap PO DAILY 03/25/21 [History Last Taken 03/05 10/24] vitamin E 400 unit PO DAILY 03/25/21 [History Last Taken 03/24/21] dicyclomine 10 mg PO ACHS 07/06/21 [History Last Taken Unknown] hydrochlorothiazide 12.5 mg PO DAILY 07/06/21 [History Last Taken Unknown] insulin degludec [Tresiba FlexTouch U-100] 52 unit SUBCUT QHS 07/06/21 [History Last Taken Unknown] ketorolac 1 drp OPHTHALMIC (EYE) Q6H 07/06/21 [History Last Taken Unknown] lisinopril 2.5 mg PO DAILY 07/06/21 [History Last Taken Unknown] meloxicam 15 mg PO DAILY PRN 07/06/21 [History Last Taken Unknown] ondansetron 4 mg PO Q8H PRN #10 tab 07/06/21 [Rx Last Taken Unknown] prednisolone acetate 1 drp OPHTHALMIC (EYE) Q6H 07/06/21 [History Last Taken Unknown] rosuvastatin 10 mg PO DAILY 07/06/21 [History Last Taken Unknown] dexamethasone [Decadron] 6 mg PO DAILY 07/08/21 [History Last Taken Unknown] insulin lispro [Humalog KwikPen Insulin] 10 unit SUBCUT TID 07/08/21 [History Last Taken Unknown] Allergy/AdvReac Type Severity Reaction Status Date / Time metformin AdvReac Diarrhea Verified 07/07/21 13:18 oxycodone [From Percocet] AdvReac upset Verified 07/07/21 13:18 stomach/off balance Family History (Updated 07/07/21 @ 20:[address] Lennie Khalil MD) Mother Diabetes Father Diabetes Surgical History History of appendectomy Previous section Social History (Updated 07/07/21 @ 20:[address] Lennie Khalil MD) household members: none Smoking Status: Former smoker how long ago did patient quit smoking: Quit cigarette tobacco 4-6 years prior, 1 ppd since teenager until quit. alcohol intake: never substance use type: does not use Physical Exam Const alert General Appearance: cooperative Exam Limitations: no limitations HEENT normocephalic and head/scalp atraumatic Eyes PERRL and EOMs intact bilaterally Neck supple and No nodes Resp Auscultation: diminished lung sounds Cardio regular rate and regular rhythm GI normal to inspection, nondistended, normoactive bowel sounds Extremity no clubbing, cyanosis or edema Skin no rashes or lesions noted Neuro CN's II-XII intact bilaterally Lab / Micro Data Result Diagrams: 07/11/21 07:00 07/11/21 07:00 Labs: Laboratory Results - last 24 hr 07/10/21 17:29: POC Glucose 204 H 07/10/21 21:02: POC Glucose 194 H 07/11/21 04:55: POC Glucose 129 H 07/11/21 07:00: WBC 6.6, RBC 4.71, Hgb 13.7, Hct 42.0, MCV 89.2, MCH 29.1, MCHC 32.6, RDW Std Deviation 43.6, RDW Coeff of Catina 13.2, Plt Count 143 L, MPV 10.8, Immature Gran % (Auto) 0.300, Neut % (Auto) 82.0 H, Lymph % (Auto) 12.0 L, [place] % (Auto) 5.5, Eos % (Auto) 0.0, Baso % (Auto) 0.2, Absolute Neuts (auto) 5.4, Absolute Lymphs (auto) 0.79 L, Nucleated RBC % 0 07/11/21 07:00: Sodium 139, Potassium 4.0, Chloride 106, Carbon Dioxide 26.0, A nion Gap 7, BUN 31 H, Creatinine 0.89, Estim Creat Clear Calc 61.67, Est GFR (MDRD) Af Amer 84, Est GFR (MDRD) Non-Af 70, BUN/Creatinine Ratio 34.7 H, Glucose 126 H, Calcium 8.6, Total Bilirubin 0.70, AST 34, ALT 17, Alkaline Phosp hatase 45, Total Protein 6.9, Albumin 2.4 L, Globulin 4.5 H, Albumin/Globulin Ratio 0.5 L 07/11/21 08:53: POC Glucose 115 H 07/11/21 11:31: POC Glucose 107
[2021-07-11] MEDS: Insulin Lispro 100 UNIT/ML INSULN.PEN SC ×2 (17:23→21:45)
[2021-07-11] MEDS: Insulin Lispro 100 UNIT/ML INSULN.PEN 10 UNIT SC (17:23)
[2021-07-11 17:35] LABS: Bedside Glucose 273 mg/dL (70-110)
[2021-07-11] MEDS: Ibuprofen 600 MG Tablet PO (17:41)
[2021-07-11] MEDS: Acetaminophen 325 MG Tablet 650 MG PO ×2 (17:41→21:45)
[2021-07-11] MEDS: Gabapentin 300 MG Capsule PO (21:45)
[2021-07-11] MEDS: Atorvastatin Calcium 20 MG Tablet PO (21:45)
[2021-07-11] MEDS: Fluticasone 0.05% 1 SPRAY NASAL.SRY 2 SPRAY NASAL (21:47)
[2021-07-11 22:31] LABS: Bedside Glucose 372 mg/dL (70-110)
--- NOTE | 2021-07-11 22:52 | CPS ---
Patient was unable to tolerate BiPAP and taken off by RN prior to RADAR TESTER arrival to room. Maintaining appropriate saturations on 15L HFNC
[2021-07-12] VITALS (32 sets, daily range): BP systolic 75–135; BP diastolic 42–82; PULSE 63–86; RESP 12–85; TEMP 36.1–36.8; O2SAT 92–100
[2021-07-12 04:45] LABS: Allen Test Negative; Base Excess 6 mmol/L (-2 to +2); Bicarbonate 30.4 mmol/L (22-26); Blood Gas Specimen Type ART; FI02 60; O2 Delivery Device BiPAP; PO2 59 mmHG (75-100); RR 12; SITE L Radial; SO2 91 % (95-99); Total Carbon Dioxide 32 mmol/L; pCO2 46.1 mmHg (35-45); pH 7.43 (7.35-7.45)
[2021-07-12] MEDS: Dicyclomine 10 MG Capsule PO ×3 (06:16→20:25)
[2021-07-12] MEDS: Levothyroxine 175 MCG Tablet PO (06:17)
[2021-07-12] MEDS: prednisoLONE eye drops (5 mL) 1 DROP OPTH.BTL 1 DRP RIGHT EYE ×3 (06:17→20:34)
[2021-07-12 07:22] LABS: Absolute Neutrophil Count 3.6 X10^3/uL (2.0-7.7); Basophil# 0.01 X10^3/uL; Basophil% 0.2 % (0-1); Hematocrit 41.2 % (37-47); Hemoglobin 13.5 g/dL (12.0-15.0); Lymphocyte % 19.4 % (19-41); Mean Corp Hgb Conc 32.8 g/dL (32-36); Mean Corpuscular Hgb 28.8 pg (27.0-32.0); Mean Platelet Vol. 10.4 fl (6.2-12.0); Monocyte% 2.2 % (0-10); NRBC Flagged by Analyzer 0 % (0-5); Neutrophil # 3.62 X10^3/uL (2.7-7.7); Neutrophil % 77.8 % (47-70); Platelet Count 140 K/mm3 (150-450); RBC Distribution Width CV 13.2 % (11.6-14.6); RBC Distribution Width SD 42.5 fl (35.1-43.9); Red Blood Count 4.68 M/mm3 (4.2-5.4); White Blood Count 4.7 K/mm3 (4.4-11.0)
[2021-07-12 07:57] LABS: ALB/GLOB Ratio 0.6 RATIO (0.9-2.4); AST(SGOT) 30 U/L (15-37); Alanine Aminotransfer ALT/SGPT 18 U/L (13-56); Albumin, Serum 2.5 g/dL (3.2-5.0); Alkaline Phosphatase 45 U/L (45-117); Anion Gap 9 (5-15); BUN 46 mg/dL (7-18); Calcium,Total 8.9 mg/dL (8.5-10.1); Chloride 97 mmol/L (98-107); Creatinine, Serum 1.77 mg/dL (0.55-1.02); EST Glomerular Filtration Rate 32 mL/min (>60); Est Glom Filt Rate - Afr Amer 38 mL/min (>60); Estimated Creatinine Clearance 31.01 ml/min; Globulin 4.2 g/dL (2.2-4.2); Glucose 248 mg/dL (74-106); Potassium 3.5 mmol/L (3.5-5.1); Protein, Total 6.7 g/dL (6.4-8.2); Sodium Level 136 mmol/L (136-145)
[2021-07-12] MEDS: Insulin Lispro 100 UNIT/ML INSULN.PEN 10 UNIT SC ×2 (08:00→17:21)
[2021-07-12] MEDS: Insulin Lispro 100 UNIT/ML INSULN.PEN SC ×3 (08:00→20:26)
--- NOTE | 2021-07-12 09:11 | PN.CC_ITS ---
Assessment & Plan Assessment/Plan (1) Acute respiratory failure with hypoxia: (2) Pneumonia due to COVID-19 virus: PLAN: RECOMMENDATIONS: 1. Continue to wean FiO2 as tolerated for saturations greater than 90%. 2. If the patient is unable to tolerate heated high flow, transition to BiPAP. 3. Continue Decadron to complete 10-day treatment course. 4. Continue empiric antimicrobials, pending sputum culture results. 5. Discontinue IV Lasix, given interval development of JOSIE. 6. Continue Lovenox as ordered along with baricitinib. IMPRESSIONS: 1. Acute hypoxemic respiratory failure secondary to COVID-19 pneumonia The patient presented to the hospital with worsening dyspnea and hypoxemia. The patient's oxygenation status still remains quite tenuous. The patient remains on empiric antimicrobials along with Decadron, baricitinib and prophylactic Lovenox. The patient did receive remdesivir. CTA chest showed no evidence for PE. The patient will be continued on heated high flow oxygen as tolerated. FiO2 will be weaned to maintain saturations at or above 90%. If the patient does not tolerate the aforementioned, BiPAP can be utilized. Unfortunately, diuretics are unable to be given due to the interval development of JOSIE. The patient is at high risk for further respiratory decompensation. 2. Acute kidney injury Likely prerenal in etiology and related to diuretic utilization. IV Lasix has been discontinued. We will continue to monitor urine output for now. No current indication for renal replacement therapy. 3. Hypertension/hyperlipidemia/CKD/obesity/diabetes mellitus Complicates care, management, recovery and prognosis. Continue home medications as indicated, along with basal and sliding scale insulin coverage. This note was generated with [employer] dictation software. It may contain incorrect words, spelling, and punctuation that were not noted in checking the note before signing. Subjective Subjective The patient was seen and examined at the bedside this morning. Events from the last 24 hours have been reviewed. The patient is afebrile and hemodynamically stable. She is currently sitting in her bedside recliner on maximum support through the Airvo heated high flow system. She does report a mild degree of chest discomfort this morning along with shortness of breath. She is documented to be overall net +5.8 L for the hospitalization. The patient remains on antimicrobials, prophylactic Lovenox, Decadron and baricitinib. Creatinine has increased to 1.7 this morning. Therefore, the patient scheduled IV Lasix was discontinued. Objective Data Objective Data The patient's most recent lab work, culture data and imaging studies have all been personally reviewed. Rapid coronavirus antigen testing was positive on July 06. Strep and urine Legionella antigens were negative. Respiratory viral panel was negative. Sputum culture is pending. Vital Signs: Vital Signs Temp Pulse Resp BP Pulse Ox 98.2 F 66 21 H 114/57 L 94 07/12/21 06:00 07/12/21 08:01 07/12/21 08:01 07/12/21 06:00 07/12/21 08:01 Oxygen Flow Rate (L/min) 60 Oxygen Delivery Method Airvo Weight: 84.7 kg Body Mass Index (BMI) 32.5 Intake & Output: Intake and Output for Last 24 Hours 07/10/21 07/11/21 07/12/21 23:59 23:59 23:59 Intake Total 1010 / 1010 932.92 / 1172.92 410 / 410 Output Total 200 / 200 200 / 200 Balance 1010 / 1010 732.92 / 972.92 210 / 210 Lab / Micro Data Attestation: I reviewed the patient's lab results. Result Diagrams: 07/12/21 07:10 07/12/21 07:10 Labs: Laboratory Results - last 24 hr 07/11/21 11:31: POC Glucose 107 07/11/21 17:21: POC Glucose 273 H 07/11/21 21:42: POC Glucose 372 H 07/12/21 07:10: WBC 4.7, RBC 4.68, Hgb 13.5, Hct 41.2, MCV 88.0, MCH 28.8, MCHC 32.8, RDW Std Deviation 42.5, RDW Coeff of Catina 13.2, Plt Count 140 L, MPV 10.4, Immature Gran % (Auto) 0.400, Neut % (Auto) 77.8 H, Lymph % (Auto) 19.4, [place] % (Auto) 2.2, Eos % (Auto) 0.0, Baso % (Auto) 0.2, Absolute Neuts (auto) 3.6, Absolute Lymphs (auto) 0.90, Nucleated RBC % 0 07/12/21 07:10: Sodium 136, Potassium 3.5, Chloride 97 L, Carbon Dioxide 30.0, Anion Gap 9, BUN 46 H, Creatinine 1.77 H, Estim Creat Clear Calc 31.01, Est GFR (MDRD) Af Amer 38 L, Est GFR (MDRD) Non-Af 32 L, BUN/Creatinine Ratio 26.0 H, Glucose 248 H, Calcium 8.9, Total Bilirubin 0.50, AST 30, ALT 18, Alkaline Phosphatase 45, Total Protein 6.7, Albumin 2.5 L, Globulin 4.2, Albumin/Globulin Ratio 0.6 L Micro: Microbiology 07/07/21 21:00 Sputum, Expectorated/Coughed Gram Stain - Final 07/07/21 21:00 Sputum, Expectorated/Coughed Respiratory Culture - Final 07/08/21 06:03 Urine, Clean Catch Legionella Antigen - Final 07/08/21 06:03 Urine, Clean Catch Streptococcus pneumoniae Antigen (M - Final 07/07/21 21:16 Mucosa - Nasopharyngeal Respiratory Panel (PCR) - Final ABG Data ABG results: ABG 07/12/21 04:42 Specimen Type ART Sample Site L Radial pH 7.43 Bicarbonate Actual 30.4 H Total CO2 32 Base Excess 6 H O2 Saturation 91 L O2 % 60 ABG pCO2 46.1 H ABG pO2 59 L Gabriel Test Negative Respiration Rate 12 O2 Delivery Device BiPAP Clinical Comments 14/8 rr12 60% Physical Exam Const alert Constitutional Narrative: Sitting in bedside recliner. General Appearance: cooperative Nutritional Appearance: obese HEENT normocephalic and head/scalp atraumatic Eyes PERRL and EOMs intact bilaterally Neck supple General: trachea midline Chest inspection of chest normal Resp Effort and Inspection: tachypneic Auscultation: diminished lung sounds; Negative for rales, rhonchi or wheezes Cardio regular rate and regular rhythm GI normal to inspection, nondistended, normoactive bowel sounds Extremity no clubbing, cyanosis or edema Skin no rashes or lesions noted Neuro moves all extremities and no focal motor deficits Psych Mood & Affect: flat affect Charges/Coding Visit Charges Inpatient E&M: 80951 Subs Hosp L3
[2021-07-12] MEDS: Enoxaparin 30 MG/0.3 ML Syringe SC ×2 (09:34→20:25)
[2021-07-12] MEDS: dexAMETHasone 4 MG Tablet 6 MG PO (09:35)
[2021-07-12] MEDS: Ibuprofen 600 MG Tablet PO ×2 (09:35→20:39)
[2021-07-12] MEDS: Fenofibrate 145 MG Tablet PO (09:35)
[2021-07-12] MEDS: Pantoprazole Sodium 40 MG Tablet PO ×2 (09:35→20:25)
[2021-07-12] MEDS: guaiFENesin/Codeine 5 ML UDC 10 ML PO (09:35)
[2021-07-12] MEDS: BENZOCAINE/MENTHOL 1 LOZENGE MUCOUS MEM (09:36)
[2021-07-12 09:46] LABS: Bedside Glucose 209 mg/dL (70-110)
[2021-07-12 11:55] LABS: Bedside Glucose 260 mg/dL (70-110)
--- NOTE | 2021-07-12 12:40 | PN.HOSP_ITS ---
Subjective Subjective Worsening. Placed on BiPAP with 100% FiO2. Objective Data Objective Data Vital Signs: Vital Signs Temp Pulse Resp BP Pulse Ox 36.8 C 72 31 H 82/53 L 94 07/12/21 10:30 07/12/21 11:44 07/12/21 11:44 07/12/21 10:30 07/12/21 11:44 Oxygen Flow Rate (L/min) 60 Oxygen Delivery Method Bi-pap Weight: 84.7 kg Body Mass Index (BMI) 32.5 Intake & Output: Intake and Output for Last 24 Hours 07/10/21 07/11/21 07/12/21 23:59 23:59 23:59 Intake Total 1010 / 1010 932.92 / 1172.92 820 / 820 Output Total 200 / 200 750 / 750 Balance 1010 / 1010 732.92 / 972.92 70 / 70 Lab / Micro Data Result Diagrams: 07/12/21 07:10 07/12/21 07:10 Labs: Laboratory Results - last 24 hr 07/11/21 11:31: POC Glucose 107 07/11/21 17:21: POC Glucose 273 H 07/11/21 21:42: POC Glucose 372 H 07/12/21 07:10: WBC 4.7, RBC 4.68, Hgb 13.5, Hct 41.2, MCV 88.0, MCH 28.8, MCHC 32.8, RDW Std Deviation 42.5, RDW Coeff of Catina 13.2, Plt Count 140 L, MPV 10.4, Immature Gran % (Auto) 0.400, Neut % (Auto) 77.8 H, Lymph % (Auto) 19.4, [place] % (Auto) 2.2, Eos % (Auto) 0.0, Baso % (Auto) 0.2, Absolute Neuts (auto) 3.6, Absolute Lymphs (auto) 0.90, Nucleated RBC % 0 07/12/21 07:10: Sodium 136, Potassium 3.5, Chloride 97 L, Carbon Dioxide 30.0, Anion Gap 9, BUN 46 H, Creatinine 1.77 H, Estim Creat Clear Calc 31.01, Est GFR (MDRD) Af Amer 38 L, Est GFR (MDRD) Non-Af 32 L, BUN/Creatinine Ratio 26.0 H, Glucose 248 H, Calcium 8.9, Total Bilirubin 0.50, AST 30, ALT 18, Alkaline Phosphatase 45, Total Protein 6.7, Albumin 2.5 L, Globulin 4.2, Albumin/Globulin Ratio 0.6 L 07/12/21 07:57: POC Glucose 209 H 07/12/21 11:17: POC Glucose 260 H Micro: Microbiology 07/07/21 21:00 Sputum, Expectorated/Coughed Gram Stain - Final 07/07/21 21:00 Sputum, Expectorated/Coughed Respiratory Culture - Final 07/08/21 06:03 Urine, Clean Catch Legionella Antigen - Final 07/08/21 06:03 Urine, Clean Catch Streptococcus pneumoniae Antigen (M - Final 07/07/21 21:16 Mucosa - Nasopharyngeal Respiratory Panel (PCR) - Final ABG Data ABG results: ABG 07/12/21 04:42 Specimen Type ART Sample Site L Radial pH 7.43 Bicarbonate Actual 30.4 H Total CO2 32 Base Excess 6 H O2 Saturation 91 L O2 % 60 ABG pCO2 46.1 H ABG pO2 59 L Gabriel Test Negative Respiration Rate 12 O2 Delivery Device BiPAP Clinical Comments 17/05 rr12 60% Physical Exam Narrative appears older than her age. on BiPAP. Const alert HEENT head/scalp atraumatic Head and Scalp: normocephalic Resp Resp Narrative: coarse breath sounds. tachypneic. Cardio regular rate, regular rhythm, S1 normal heart sound and S2 normal heart sound GI normal to inspection, nondistended, normoactive bowel sounds Extremity normal to inspection Skin no rashes or lesions noted Neuro Sensorium / Orientation: awake Psych Mood & Affect: anxious Assessment & Plan Assessment/Plan (1) Acute respiratory failure with hypoxia: (2) Pneumonia due to COVID-19 virus: (3) JOSIE (acute kidney injury): (4) Hypotension: QUALIFIERS: Hypotension type: unspecified hypotension type Qualified Code(s): I95.9 - Hypotension, unspecified PLAN: 1. acute hypoxic respiratory failure * worse * secondary to bilateral COVID-19 pneumonia * High concern for ongoing worsening * furosemide discontinued given JOSIE 2. COVID 19 pneumonia * unvaccinated * onset 07/03. Quarantine through 07/21 * on dexamethasone through 07/16 * remdesivir completed * started on baricitinib 07/11, may need to DC if JOSIE continues to worsen * ID following 3. JOSIE * may be due to furosemide or baricitinib * furosemide held 07/12 * did receive 500cc IVF today * consider dc baricitinib if continues to worsen. 4. Hypotension: * hold diuretics, ARB * did receive 500 cc of fluid today. Caution with IVF given resp failure and COVID 19 * if worsens, may need pressor support 5. VTE prophylaxis: LMWH Prognosis: guarded given worsening respiratory status and hypotension. Advance care planning: Spent additional 16 minutes discussing patient about the advance care planning. Specifically asked that the patient would want to be intubated in the event of respiratory arrest, patients that she would. Asked if she would want a triple-lumen catheter likely in her neck for vasopressors. Explained the risks of pneumothorax and bleeding with her. She consented to that if it were necessary. Also discussed that if she is intubated she would require sedation with medications and that she would be okay with vasopressors to which she said she would. And just clarified with her that she is unvaccinated to which she said she is. Charges/Coding Visit Charges Inpatient E&M: 87847 Subs Hosp L3 Procedures Hospitalists Procedures: 29363 Advncd Care Plan 30 Min
[2021-07-12] MEDS: 0.9% Saline Lock 10 ML Syringe IV (17:20)
[2021-07-12 17:35] LABS: Bedside Glucose 247 mg/dL (70-110)
[2021-07-12] MEDS: Fluticasone 0.05% 1 SPRAY NASAL.SRY 2 SPRAY NASAL (20:23)
[2021-07-12] MEDS: Atorvastatin Calcium 20 MG Tablet PO (20:25)
[2021-07-12] MEDS: Gabapentin 300 MG Capsule PO (20:25)
[2021-07-12 21:55] LABS: Bedside Glucose 247 mg/dL (70-110)
[2021-07-13] VITALS (34 sets, daily range): BP systolic 89–125; BP diastolic 51–77; PULSE 59–87; RESP 12–30; TEMP 36.2–37.1; O2SAT 83–98
[2021-07-13] MEDS: Dicyclomine 10 MG Capsule PO ×4 (04:38→21:21)
[2021-07-13] MEDS: prednisoLONE eye drops (5 mL) 1 DROP OPTH.BTL 1 DRP RIGHT EYE ×3 (04:38→17:00)
[2021-07-13] MEDS: Levothyroxine 175 MCG Tablet PO (04:38)
--- NOTE | 2021-07-13 07:09 | PCM.PN.INT ---
Assessment & Plan Assessment/Plan (1) Acute respiratory failure with hypoxia: (2) Pneumonia due to COVID-19 virus: PLAN: RECOMMENDATIONS: 1. Continue to wean FiO2 as tolerated for saturations greater than 90%. 2. Transition patient back to Airvo heated high flow once again this morning. 3. Continue Decadron to complete 10-day treatment course. 4. Continue empiric antimicrobials, pending sputum culture results. 5. Continue Lovenox as ordered along with baricitinib. IMPRESSIONS: 1. Acute hypoxemic respiratory failure secondary to COVID-19 pneumonia The patient presented to the hospital with worsening dyspnea and hypoxemia. The patient's oxygenation status still remains quite tenuous. The patient remains on empiric antimicrobials along with Decadron, baricitinib and prophylactic Lovenox. The patient did receive remdesivir. CTA chest showed no evidence for PE. The patient will be continued on heated high flow oxygen as tolerated. FiO2 will be weaned to maintain saturations at or above 90%. Unfortunately, the patient developed worsening renal insufficiency the last time diuretics were administered. 2. Acute kidney injury Improved. Likely prerenal in etiology and related to diuretic utilization. IV Lasix has been discontinued. We will continue to monitor urine output for now. No current indication for renal replacement therapy. 3. Hypertension/hyperlipidemia/CKD/obesity/diabetes mellitus Complicates care, management, recovery and prognosis. Continue home medications as indicated, along with basal and sliding scale insulin coverage. This note was generated with [employer] dictation software. It may contain incorrect words, spelling, and punctuation that were not noted in checking the note before signing. Subjective Subjective The patient was seen and examined at the bedside this morning. Events from the last 24 hours have been reviewed. The patient is afebrile and hemodynamically stable. The patient was transferred to the medical intensive care unit yesterday with progressive respiratory decline and the need for BiPAP support. She is currently being maintained on BiPAP with an FiO2 requirement of 50%. The patient is documented to be overall net +5.5 L for the hospital admission. The patient remains on antimicrobials, prophylactic Lovenox, Decadron and baricitinib. Objective Data Objective Data The patient's most recent lab work, culture data and imaging studies have all been personally reviewed. Rapid coronavirus antigen testing was positive on July 06. Strep and urine Legionella antigens were negative. Respiratory viral panel was negative. Sputum culture is pending. Vital Signs: Vital Signs Temp Pulse Resp BP Pulse Ox 97.8 F 70 15 104/66 90 07/13/21 05:00 07/13/21 07:00 07/13/21 07:00 07/13/21 07:00 07/13/21 07:00 Oxygen Flow Rate (L/min) 60 Oxygen Delivery Method Bi-pap Weight: 83.9 kg Body Mass Index (BMI) 32.5 Intake & Output: Intake and Output for Last 24 Hours 07/11/21 07/12/21 07/13/21 23:59 23:59 23:59 Intake Total 932.92 / 1172.92 2370 / 2370 170 / 170 Output Total 200 / 200 2625 / 2625 Balance 732.92 / 972.92 -255 / -255 170 / 170 Lab / Micro Data Attestation: I reviewed the patient's lab results. Result Diagrams: 07/13/21 04:45 07/13/21 04:45 Labs: Laboratory Results - last 24 hr 07/12/21 07:10: WBC 4.7, RBC 4.68, Hgb 13.5, Hct 41.2, MCV 88.0, MCH 28.8, MCHC 32.8, RDW Std Deviation 42.5, RDW Coeff of Catina 13.2, Plt Count 140 L, MPV 10.4, Immature Gran % (Auto) 0.400, Neut % (Auto) 77.8 H, Lymph % (Auto) 19.4, [place] % (Auto) 2.2, Eos % (Auto) 0.0, Baso % (Auto) 0.2, Absolute Neuts (auto) 3.6, Absolute Lymphs (auto) 0.90, Nucleated RBC % 0 07/12/21 07:10: Sodium 136, Potassium 3.5, Chloride 97 L, Carbon Dioxide 30.0, Anion Gap 9, BUN 46 H, Creatinine 1.77 H, Estim Creat Clear Calc 31.01, Est GFR (MDRD) Af Amer 38 L, Est GFR (MDRD) Non-Af 32 L, BUN/Creatinine Ratio 26.0 H, Glucose 248 H, Calcium 8.9, Total Bilirubin 0.50, AST 30, ALT 18, Alkaline Phosphatase 45, Total Protein 6.7, Albumin 2.5 L, Globulin 4.2, Albumin/Globulin Ratio 0.6 L 07/12/21 07:57: POC Glucose 209 H 07/12/21 11:17: POC Glucose 260 H 07/12/21 16:52: POC Glucose 247 H 07/12/21 20:20: POC Glucose 247 H Micro: Microbiology 07/11/21 16:18 Sputum, Expectorated/Coughed Gram Stain - Final 07/07/21 21:00 Sputum, Expectorated/Coughed Gram Stain - Final 07/07/21 21:00 Sputum, Expectorated/Coughed Respiratory Culture - Final 07/08/21 06:03 Urine, Clean Catch Legionella Antigen - Final 07/08/21 06:03 Urine, Clean Catch Streptococcus pneumoniae Antigen (M - Final 07/07/21 21:16 Mucosa - Nasopharyngeal Respiratory Panel (PCR) - Final Physical Exam Const alert and no apparent distress General Appearance: cooperative and on BiPAP Nutritional Appearance: obese HEENT normocephalic and head/scalp atraumatic Eyes PERRL and EOMs intact bilaterally Neck supple General: trachea midline Chest inspection of chest normal Resp Effort and Inspection: tachypneic Auscultation: diminished lung sounds; Negative for rales, rhonchi or wheezes Cardio regular rate and regular rhythm GI normal to inspection, nondistended, normoactive bowel sounds Extremity no clubbing, cyanosis or edema Skin no rashes or lesions noted Neuro moves all extremities and no focal motor deficits Psych Mood & Affect: flat affect Charges/Coding Visit Charges Inpatient E&M: 53033 [facility] Hosp L3
[2021-07-13 07:26] LABS: Absolute Lymphocyte Count 0.74 X10^3/uL (0.83-4.51); Absolute Neutrophil Count 1.7 X10^3/uL (2.0-7.7); Eosinophil# 0.01 X10^3/uL; Eosinophils% 0.4 % (0-5); Hematocrit 38.4 % (37-47); Hemoglobin 12.4 g/dL (12.0-15.0); Lymphocyte # 0.74 X10^3/ul (0.83-4.51); Lymphocyte % 28.6 % (19-41); Mean Corp Hgb Conc 32.3 g/dL (32-36); Mean Corpuscular Hgb 28.4 pg (27.0-32.0); Mean Corpuscular Volume 88.1 fL (81-99); Mean Platelet Vol. 10.9 fl (6.2-12.0); Monocyte% 3.9 % (0-10); NRBC Flagged by Analyzer 0 % (0-5); Neutrophil # 1.73 X10^3/uL (2.7-7.7); Neutrophil % 66.7 % (47-70); Platelet Count 132 K/mm3 (150-450); RBC Distribution Width SD 42.1 fl (35.1-43.9); Red Blood Count 4.36 M/mm3 (4.2-5.4); White Blood Count 2.6 K/mm3 (4.4-11.0)
--- NOTE | 2021-07-13 07:37 | PCM.PN.HOSP ---
Subjective Subjective Patient on AIRVO. Her chest pain has much improved and currently denies it. On BiPAP last night. No fever Objective Data Objective Data Vital Signs: Vital Signs Temp Pulse Resp BP Pulse Ox 97.8 F 70 15 104/66 90 07/13/21 05:00 07/13/21 07:00 07/13/21 07:00 07/13/21 07:00 07/13/21 07:00 Oxygen Flow Rate (L/min) 60 Oxygen Delivery Method Bi-pap Weight: 184 lb 15.485 oz Body Mass Index (BMI) 32.5 Intake & Output: Intake and Output for Last 24 Hours 07/11/21 07/12/21 07/13/21 23:59 23:59 23:59 Intake Total 932.92 / 1172.92 2370 / 2370 170 / 170 Output Total 200 / 200 2625 / 2625 Balance 732.92 / 972.92 -255 / -255 170 / 170 Lab / Micro Data Result Diagrams: 07/13/21 04:45 07/13/21 04:45 Labs: Laboratory Results - last 24 hr 07/12/21 07:10: Sodium 136, Potassium 3.5, Chloride 97 L, Carbon Dioxide 30.0, Anion Gap 9, BUN 46 H, Creatinine 1.77 H, Estim Creat Clear Calc 31.01, Est GFR (MDRD) Af Amer 38 L, Est GFR (MDRD) Non-Af 32 L, BUN/Creatinine Ratio 26.0 H, Glucose 248 H, Calcium 8.9, Total Bilirubin 0.50, AST 30, ALT 18, Alkaline Phosphatase 45, Total Protein 6.7, Albumin 2.5 L, Globulin 4.2, Albumin/Globulin Ratio 0.6 L 07/12/21 07:57: POC Glucose 209 H 07/12/21 11:17: POC Glucose 260 H 07/12/21 16:52: POC Glucose 247 H 07/12/21 20:20: POC Glucose 247 H 07/13/21 04:45: WBC 2.6 L, RBC 4.36, Hgb 12.4, Hct 38.4, MCV 88.1, MCH 28.4, MCHC 32.3, RDW Std Deviation 42.1, RDW Coeff of Catina 13.0, Plt Count 132 L, MPV 10.9, Immature Gran % (Auto) 0.400, Neut % (Auto) 66.7, Lymph % (Auto) 28.6, [place] % (Auto) 3.9, Eos % (Auto) 0.4, Baso % (Auto) 0.0, Absolute Neuts (auto) 1.7 L, Absolute Lymphs (auto) 0.74 L, Nucleated RBC % 0 Micro: Microbiology 07/11/21 16:18 Sputum, Expectorated/Coughed Gram Stain - Final 07/07/21 21:00 Sputum, Expectorated/Coughed Gram Stain - Final 07/07/21 21:00 Sputum, Expectorated/Coughed Respiratory Culture - Final 07/08/21 06:03 Urine, Clean Catch Legionella Antigen - Final 07/08/21 06:03 Urine, Clean Catch Streptococcus pneumoniae Antigen (M - Final 07/07/21 21:16 Mucosa - Nasopharyngeal Respiratory Panel (PCR) - Final Physical Exam Narrative General: Alert, Oriented x3, Cooperative HEENT: Atraumatic, PERRLA, EOMI, Normocephalic Oral: No Gingival or Mucosal Lesions/ Ulcerations Neck: Supple, No JVD, Negative Carotid Bruits Lungs: Air entry diminished in bilateral lung bases. No crepitation/rhonchi. Severe hypoxia. Cardiovascular: Regular rate, Regular Rhythm, Normal S1, Normal S2, No murmurs Abdomen: Bowel Sounds Present, Soft, Non Tender, Non-Distended : No renal angle tenderness. No suprapubic tenderness. Extremities: No edema, Capillary Refill Less than 3 Seconds Skin: No rashes, No breakdown Musculoskeletal: No Tenderness to Palpation of Joints or Extremities Neurological: Cranial nerves II-XII grossly intact, DTR 2+/4 and Symmetrical, Neuro grossly intact Psych/Mental Status: Flat affect. Assessment & Plan Assessment/Plan (1) Acute respiratory failure with hypoxia: (2) Pneumonia due to COVID-19 virus: (3) JOSIE (acute kidney injury): (4) Hypotension: QUALIFIERS: Hypotension type: unspecified hypotension type Qualified Code(s): I95.9 - Hypotension, unspecified PLAN: 1. Acute hypoxic respiratory failure secondary to bilateral COVID-19 pneumonia: Patient is unvaccinated. On dexamethasone through his 07/16. Patient completed remdesivir 07/11. Quarantine through 07/21. Continue incentive spirometry. BUN/creatinine elevated. Creatinine went up from 0.9-1.05, still on baseline. Patient transferred from PCU to ICU. Currently alternating air Vo and BiPAP 2. Hypertension.Blood pressure on lower side but currently has recovered.: HCTZ, lisinopril and diuretics held. 4. JOSIE on CKD III A during hospital course: Furosemide held on 07/12. 500 cc of IV fluid was given. JOSIE resolved. Creatinine back on the baseline 1.02. 5. Retrosternal pain possible GERD: Started on Protonix 40 mg twice daily. VTE prophylaxis: LMWH Prognosis: guarded given worsening respiratory status and hypotension. Advance care planning: Full code. Charges/Coding Visit Charges Inpatient E&M: 20215 [facility] Hosp L3
[2021-07-13 07:45] LABS: ALB/GLOB Ratio 0.5 RATIO (0.9-2.4); AST(SGOT) 27 U/L (15-37); Alanine Aminotransfer ALT/SGPT 14 U/L (13-56); Albumin, Serum 2.2 g/dL (3.2-5.0); Alkaline Phosphatase 40 U/L (45-117); Anion Gap 6 (5-15); BUN 33 mg/dL (7-18); BUN/Creat Ratio 32.4 RATIO (10-20); Calcium,Total 8.7 mg/dL (8.5-10.1); Chloride 101 mmol/L (98-107); Creatinine, Serum 1.02 mg/dL (0.55-1.02); EST Glomerular Filtration Rate 60 mL/min (>60); Est Glom Filt Rate - Afr Amer 72 mL/min (>60); Estimated Creatinine Clearance 53.81 ml/min; Globulin 4.1 g/dL (2.2-4.2); Glucose 99 mg/dL (74-106); Potassium 3.6 mmol/L (3.5-5.1); Protein, Total 6.3 g/dL (6.4-8.2); Sodium Level 140 mmol/L (136-145)
[2021-07-13 08:03] LABS: D-Dimer Quantitative (DVT/PE) 0.94 FEU/ug/m (0.27-0.49)
[2021-07-13] MEDS: Menthol/Lanolin/Calamine/Znox 113 GM Tube 1 APPLIC TOPICAL ×2 (08:29→21:27)
[2021-07-13] MEDS: Insulin Lispro 100 UNIT/ML INSULN.PEN 10 UNIT SC ×3 (08:29→17:00)
[2021-07-13] MEDS: dexAMETHasone 4 MG Tablet 6 MG PO (08:30)
[2021-07-13] MEDS: Pantoprazole Sodium 40 MG Tablet PO ×2 (08:30→21:21)
[2021-07-13] MEDS: Enoxaparin 30 MG/0.3 ML Syringe SC ×2 (08:30→21:21)
[2021-07-13] MEDS: Fenofibrate 145 MG Tablet PO (08:31)
[2021-07-13 15:01] LABS: Bedside Glucose 144 mg/dL (70-110)
[2021-07-13] MEDS: Insulin Lispro 100 UNIT/ML INSULN.PEN SC ×2 (17:00→21:26)
[2021-07-13 17:15] LABS: Bedside Glucose 173 mg/dL (70-110)
[2021-07-13] MEDS: Atorvastatin Calcium 20 MG Tablet PO (21:21)
[2021-07-13] MEDS: Gabapentin 300 MG Capsule PO (21:21)
[2021-07-13] MEDS: Fluticasone 0.05% 1 SPRAY NASAL.SRY 2 SPRAY NASAL (21:21)
[2021-07-14] VITALS (39 sets, daily range): BP systolic 71–144; BP diastolic 37–108; PULSE 64–117; RESP 12–93; TEMP 36.4–36.8; O2SAT 22–98
[2021-07-14] MEDS: prednisoLONE eye drops (5 mL) 1 DROP OPTH.BTL 1 DRP RIGHT EYE ×5 (01:04→21:02)
[2021-07-14] MEDS: Morphine 2 MG/ML Syringe IV (02:02)
[2021-07-14] MEDS: 0.9% Saline Lock 10 ML Syringe IV ×2 (02:02→20:54)
[2021-07-14] MEDS: guaiFENesin/Codeine 5 ML UDC 10 ML PO (02:02)
[2021-07-14 04:36] LABS: Bedside Glucose 224 mg/dL (70-110)
[2021-07-14 06:12] LABS: Absolute Lymphocyte Count 0.58 X10^3/uL (0.83-4.51); Absolute Neutrophil Count 3.1 X10^3/uL (2.0-7.7); Basophil# 0.01 X10^3/uL; Basophil% 0.3 % (0-1); Eosinophil# 0.04 X10^3/uL; Hematocrit 36.7 % (37-47); Hemoglobin 12.3 g/dL (12.0-15.0); Lymphocyte # 0.58 X10^3/ul (0.83-4.51); Lymphocyte % 14.7 % (19-41); Mean Corp Hgb Conc 33.5 g/dL (32-36); Mean Corpuscular Hgb 29.1 pg (27.0-32.0); Mean Platelet Vol. 11.3 fl (6.2-12.0); Monocyte# 0.14 X10^3/uL; Monocyte% 3.6 % (0-10); NRBC Flagged by Analyzer 0 % (0-5); Neutrophil # 3.14 X10^3/uL (2.7-7.7); Neutrophil % 79.6 % (47-70); POSITIVE DIFFERENTIAL YES; Platelet Count 131 K/mm3 (150-450); RBC Distribution Width CV 12.7 % (11.6-14.6); RBC Distribution Width SD 40.2 fl (35.1-43.9); Red Blood Count 4.22 M/mm3 (4.2-5.4); White Blood Count 3.9 K/mm3 (4.4-11.0)
[2021-07-14 06:18] LABS: Differential Indicated SCAN CRITERIA MET
[2021-07-14 06:32] LABS: ALB/GLOB Ratio 0.6 RATIO (0.9-2.4); AST(SGOT) 42 U/L (15-37); Alanine Aminotransfer ALT/SGPT 15 U/L (13-56); Albumin, Serum 2.3 g/dL (3.2-5.0); Alkaline Phosphatase 42 U/L (45-117); Anion Gap 6 (5-15); BUN 28 mg/dL (7-18); BUN/Creat Ratio 23.7 RATIO (10-20); Calcium,Total 8.8 mg/dL (8.5-10.1); Chloride 101 mmol/L (98-107); Creatinine, Serum 1.18 mg/dL (0.55-1.02); EST Glomerular Filtration Rate 50 mL/min (>60); Est Glom Filt Rate - Afr Amer 61 mL/min (>60); Estimated Creatinine Clearance 46.52 ml/min; Globulin 4.1 g/dL (2.2-4.2); Glucose 71 mg/dL (74-106); Potassium 3.2 mmol/L (3.5-5.1); Protein, Total 6.4 g/dL (6.4-8.2); Sodium Level 139 mmol/L (136-145)
[2021-07-14] MEDS: Menthol/Lanolin/Calamine/Znox 113 GM Tube 1 APPLIC TOPICAL ×2 (08:29→20:50)
[2021-07-14] MEDS: Potassium Chloride Oral Tablet 20 MEQ 40 MEQ PO (08:29)
[2021-07-14] MEDS: Enoxaparin 30 MG/0.3 ML Syringe SC ×2 (08:29→20:55)
[2021-07-14] MEDS: Fenofibrate 145 MG Tablet PO (08:31)
[2021-07-14] MEDS: Pantoprazole Sodium 40 MG Tablet PO ×2 (08:31→20:45)
[2021-07-14] MEDS: Dicyclomine 10 MG Capsule PO ×4 (08:31→20:44)
[2021-07-14] MEDS: Levothyroxine 175 MCG Tablet PO (08:31)
[2021-07-14 09:36] LABS: Bedside Glucose 48 mg/dL (70-110)
[2021-07-14 09:36] LABS: Bedside Glucose 128 mg/dL (70-110)
--- NOTE | 2021-07-14 10:54 | PCM.PN.INT ---
Assessment & Plan Assessment/Plan (1) Acute respiratory failure with hypoxia: (2) Pneumonia due to COVID-19 virus: PLAN: RECOMMENDATIONS: 1. Continue to wean FiO2 as tolerated for saturations greater than 90%. 2. Transition patient back to Airvo heated high flow once again this morning. 3. Continue Decadron to complete 10-day treatment course. 4. Defer antibiotics to infectious disease 5. Continue Lovenox as ordered along with baricitinib. 6. Aggressive electrolyte repletion 7. Decrease Lantus IMPRESSIONS: 1. Acute hypoxemic respiratory failure secondary to COVID-19 pneumonia The patient presented to the hospital with worsening dyspnea and hypoxemia. The patient's oxygenation status still remains quite tenuous. The patient remains on empiric antimicrobials along with Decadron, baricitinib and prophylactic Lovenox. The patient did receive remdesivir. CTA chest showed no evidence for PE. The patient will be continued on heated high flow oxygen as tolerated. FiO2 will be weaned to maintain saturations at or above 90%. Renal function continues to preclude significant diuresis. However, patient is having volume loss from diarrhea. 2. Acute kidney injury Slightly worse today. Likely prerenal in etiology and related to diuretic utilization. IV Lasix has been discontinued. We will continue to monitor urine output for now. No current indication for renal replacement therapy. 3. Hypertension/hyperlipidemia/CKD/obesity/diabetes mellitus Complicates care, management, recovery and prognosis. Continue home medications as indicated, along with basal and sliding scale insulin coverage. This note was generated with [employer] dictation software. It may contain incorrect words, spelling, and punctuation that were not noted in checking the note before signing. Subjective Subjective Patient did okay overnight. Patient continues to have significant diarrhea. Patient had some hypoglycemia this morning, but was able to be treated with a p.o. diet. Patient subjectively feels subjectively unchanged compared to previous. Patient does report a good appetite. Objective Data Objective Data Vital Signs: Vital Signs Temp Pulse Resp BP Pulse Ox 36.8 C 82 25 H 78/42 L 88 07/14/21 04:00 07/14/21 10:00 07/14/21 10:00 07/14/21 10:00 07/14/21 10:00 Oxygen Flow Rate (L/min) 60 Oxygen Delivery Method Airvo Weight: 84.1 kg Body Mass Index (BMI) 32.5 Intake & Output: Intake and Output for Last 24 Hours 07/12/21 07/13/21 07/14/21 23:59 23:59 23:59 Intake Total 2370 / 2370 870 / 870 50 / 50 Output Total 2625 / 2625 125 / 125 Balance -255 / -255 870 / 745 -75 / -75 Lab / Micro Data Result Diagrams: 07/14/21 05:25 07/14/21 05:25 Labs: Laboratory Results - last 24 hr 07/13/21 10:51: POC Glucose 144 H 07/13/21 16:57: POC Glucose 173 H 07/13/21 21:25: POC Glucose 224 H 07/14/21 05:25: WBC 3.9 L, RBC 4.22, Hgb 12.3, Hct 36.7 L, MCV 87.0, MCH 29.1, MCHC 33.5, RDW Std Deviation 40.2, RDW Coeff of Catina 12.7, Plt Count 131 L, MPV 11.3, Immature Gran % (Auto) 0.800, Neut % (Auto) 79.6 H, Lymph % (Auto) 14.7 L, [place] % (Auto) 3.6, Eos % (Auto) 1.0, Baso % (Auto) 0.3, Absolute Neuts (auto) 3.1, Absolute Lymphs (auto) 0.58 L, Nucleated RBC % 0, Diff Path Review February07/14/21 05:25: Sodium 139, Potassium 3.2 L, Chloride 101, Carbon Dioxide 32.0, Anion Gap 6, BUN 28 H, Creatinine 1.18 H, Estim Creat Clear Calc 46.52, Est GFR (MDRD) Af Amer 61, Est GFR (MDRD) Non-Af 50 L, BUN/Creatinine Ratio 23.7 H, Glucose 71 L, Calcium 8.8, Total Bilirubin 0.60, AST 42 H, ALT 15, Alkaline Phosphatase 42 L, Total Protein 6.4, Albumin 2.3 L, Globulin 4.1, Albumin/Globulin Ratio 0.6 L 07/14/21 08:25: POC Glucose 48 L 07/14/21 09:27: POC Glucose 128 H Micro: Microbiology 07/11/21 16:18 Sputum, Expectorated/Coughed Gram Stain - Final 07/11/21 16:18 Sputum, Expectorated/Coughed Respiratory Culture - Preliminary Appears to be normal respiratory omid. Further studies to follow. 07/07/21 21:00 Sputum, Expectorated/Coughed Gram Stain - Final 07/07/21 21:00 Sputum, Expectorated/Coughed Respiratory Culture - Final 07/08/21 06:03 Urine, Clean Catch Legionella Antigen - Final 07/08/21 06:03 Urine, Clean Catch Streptococcus pneumoniae Antigen (M - Final 07/07/21 21:16 Mucosa - Nasopharyngeal Respiratory Panel (PCR) - Final Physical Exam Const alert and no apparent distress General Appearance: cooperative and on BiPAP Nutritional Appearance: obese HEENT normocephalic and head/scalp atraumatic Eyes PERRL and EOMs intact bilaterally Neck supple General: trachea midline Chest inspection of chest normal Resp Effort and Inspection: tachypneic Auscultation: diminished lung sounds; Negative for rales, rhonchi or wheezes Cardio regular rate and regular rhythm GI normal to inspection, nondistended, normoactive bowel sounds Extremity no clubbing, cyanosis or edema Skin no rashes or lesions noted Neuro moves all extremities and no focal motor deficits Psych Mood & Affect: flat affect Charges/Coding Visit Charges Inpatient E&M: 92940 [facility] Hosp L3
[2021-07-14] MEDS: dexAMETHasone 4 MG Tablet 6 MG PO (11:35)
[2021-07-14] MEDS: Lactated Ringers 500 ML 999 ML IV (11:35)
[2021-07-14] MEDS: Ascorbic Acid 500 MG Tablet 1000 MG PO (11:35)
[2021-07-14 12:56] LABS: Pathologist Review Reviewed
--- NOTE | 2021-07-14 13:52 | PCM.PN.ID ---
Physical Exam Narrative Feeling a little better, no fever, no n/v/d. Const alert General Appearance: cooperative Resp Auscultation: diminished lung sounds Cardio regular rate and regular rhythm GI normal to inspection, nondistended, normoactive bowel sounds Skin no rashes or lesions noted ID ID: Route of nutrition/ use of supplements: [] Nutritional Intake: [] IV Site: [] Cramer Catheter: [] Assessment & Plan Assessment/Plan (1) Pneumonia due to COVID-19 virus: PLAN: Sx started 07/04. Had worsening O2. On dex, remdesivir (completed), baricitinib. Sputum cx neg, will stop zosyn. Decreasing dose of baricitinib. Will follow (2) Acute respiratory failure with hypoxia:
--- NOTE | 2021-07-14 15:28 | PN.HOSP_ITS ---
Subjective Subjective Patient shortness of breath is gradually getting better. Mild hypokalemia. Objective Data Objective Data Vital Signs: Vital Signs Temp Pulse Resp BP Pulse Ox 98.1 F 81 20 H 106/45 L 92 07/14/21 12:00 07/14/21 14:12 07/14/21 14:12 07/14/21 14:00 07/14/21 14:12 Oxygen Flow Rate (L/min) 60 Oxygen Delivery Method Airvo Weight: 185 lb 6.54 oz Body Mass Index (BMI) 32.5 Intake & Output: Intake and Output for Last 24 Hours 07/12/21 07/13/21 07/14/21 23:59 23:59 23:59 Intake Total 2370 / 2370 870 / 870 600 / 600 Output Total 2625 / 2625 125 / 125 Balance -255 / -255 870 / 745 475 / 475 Lab / Micro Data Result Diagrams: 07/14/21 05:25 07/14/21 05:25 Labs: Laboratory Results - last 24 hr 07/13/21 16:57: POC Glucose 173 H 07/13/21 21:25: POC Glucose 224 H 07/14/21 05:25: WBC 3.9 L, RBC 4.22, Hgb 12.3, Hct 36.7 L, MCV 87.0, MCH 29.1, MCHC 33.5, RDW Std Deviation 40.2, RDW Coeff of Catina 12.7, Plt Count 131 L, MPV 11.3, Immature Gran % (Auto) 0.800, Neut % (Auto) 79.6 H, Lymph % (Auto) 14.7 L, [place] % (Auto) 3.6, Eos % (Auto) 1.0, Baso % (Auto) 0.3, Absolute Neuts (auto) 3.1, Absolute Lymphs (auto) 0.58 L, Nucleated RBC % 0, Diff Path Review Reviewed 07/14/21 05:25: Sodium 139, Potassium 3.2 L, Chloride 101, Carbon Dioxide 32.0, Anion Gap 6, BUN 28 H, Creatinine 1.18 H, Estim Creat Clear Calc 46.52, Est GFR (MDRD) Af Amer 61, Est GFR (MDRD) Non-Af 50 L, BUN/Creatinine Ratio 23.7 H, Glucose 71 L, Calcium 8.8, Total Bilirubin 0.60, AST 42 H, ALT 15, Alkaline Phosphatase 42 L, Total Protein 6.4, Albumin 2.3 L, Globulin 4.1, Albumin/Globulin Ratio 0.6 L 07/14/21 08:25: POC Glucose 48 L 07/14/21 09:27: POC Glucose 128 H Micro: Microbiology 07/11/21 16:18 Sputum, Expectorated/Coughed Gram Stain - Final 07/11/21 16:18 Sputum, Expectorated/Coughed Respiratory Culture - Preliminary Appears to be normal respiratory omid. Further studies to follow. 07/07/21 21:00 Sputum, Expectorated/Coughed Gram Stain - Final 07/07/21 21:00 Sputum, Expectorated/Coughed Respiratory Culture - Final 07/08/21 06:03 Urine, Clean Catch Legionella Antigen - Final 07/08/21 06:03 Urine, Clean Catch Streptococcus pneumoniae Antigen (M - Final 07/07/21 21:16 Mucosa - Nasopharyngeal Respiratory Panel (PCR) - Final Physical Exam Narrative General: Alert, Oriented x3, Cooperative HEENT: Atraumatic, PERRLA, EOMI, Normocephalic Oral: No Gingival or Mucosal Lesions/ Ulcerations Neck: Supple, No JVD, Negative Carotid Bruits Lungs: Air entry diminished in bilateral lung bases. No crepitation/rhonchi. Severe hypoxia on NIPPV. Cardiovascular: Regular rate, Regular Rhythm, Normal S1, Normal S2, No murmurs Abdomen: Bowel Sounds Present, Soft, Non Tender, Non-Distended : No renal angle tenderness. No suprapubic tenderness. Extremities: No edema, Capillary Refill Less than 3 Seconds Skin: No rashes, No breakdown Musculoskeletal: No Tenderness to Palpation of Joints or Extremities Neurological: Cranial nerves II-XII grossly intact, DTR 2+/4 and Symmetrical, Neuro grossly intact Psych/Mental Status: Flat affect. Assessment & Plan Assessment/Plan (1) Acute respiratory failure with hypoxia: (2) Pneumonia due to COVID-19 virus: (3) JOSIE (acute kidney injury): (4) Hypotension: QUALIFIERS: Hypotension type: unspecified hypotension type Qualified Code(s): I95.9 - Hypotension, unspecified PLAN: 1. Acute hypoxic respiratory failure secondary to bilateral COVID-19 pneumonia: Patient is unvaccinated. On dexamethasone through his 07/16. Patient completed remdesivir 07/11. Quarantine through 07/21. Continue incentive spirometry. BUN/creatinine elevated. Creatinine went up from 0.9-1.05, still on baseline. Patient transferred from PCU to ICU. Currently alternating air Vo and BiPAP 07/14: Mild hypokalemia, potassium getting replaced. 2. Hypertension.Blood pressure on lower side but currently has recovered.: HCTZ, lisinopril and diuretics held. 4. JOSIE on CKD III A during hospital course: Furosemide held on 07/12. 500 cc of IV fluid was given. JOSIE resolved. Creatinine back on the baseline 1.02. 10/year-old: Creatinine back to 1.18. 5. Diabetes mellitus type 2: Patient with hypoglycemia therefore Lantus and Humalog scheduled insulin dose decreased with holding parameter; hold if gluco se less than 130 mg/dl. Retrosternal pain possible GERD: Started on Protonix 30 mg twice daily. VTE prophylaxis: LMWH Prognosis: guarded given worsening respiratory status and hypotension. Advance care planning: Full code.
[2021-07-14] MEDS: Insulin Lispro 100 UNIT/ML INSULN.PEN SC ×3 (16:19→20:47)
[2021-07-14 16:41] LABS: Bedside Glucose 217 mg/dL (70-110)
[2021-07-14 16:41] LABS: Bedside Glucose 125 mg/dL (70-110)
[2021-07-14] MEDS: Atorvastatin Calcium 20 MG Tablet PO (20:44)
[2021-07-14] MEDS: Gabapentin 300 MG Capsule PO (20:45)
[2021-07-14] MEDS: Fluticasone 0.05% 1 SPRAY NASAL.SRY 2 SPRAY NASAL (20:48)
[2021-07-14] MEDS: Acetaminophen 325 MG Tablet 650 MG PO (20:48)
[2021-07-14] MEDS: Loperamide 2 MG Capsule PO (22:04)
[2021-07-14] MEDS: MELATONIN 3 MG TABLET PO (22:04)
--- NOTE | 2021-07-14 22:08 | NURSING ---
pt encourage to lay in prone postion
--- NOTE | 2021-07-14 22:44 | NURSING ---
pt proning at this time. denies any [id number]
[2021-07-14 23:51] LABS: Bedside Glucose 197 mg/dL (70-110)
[2021-07-15] VITALS (37 sets, daily range): BP systolic 90–150; BP diastolic 24–86; PULSE 58–94; RESP 12–28; TEMP 36.6; O2SAT 89–100
[2021-07-15 03:54] LABS: Absolute Lymphocyte Count 0.39 X10^3/uL (0.83-4.51); Absolute Neutrophil Count 2.1 X10^3/uL (2.0-7.7); Eosinophil# 0.01 X10^3/uL; Eosinophils% 0.4 % (0-5); Hematocrit 38.9 % (37-47); Hemoglobin 13.1 g/dL (12.0-15.0); Lymphocyte # 0.39 X10^3/ul (0.83-4.51); Lymphocyte % 15.3 % (19-41); Mean Corp Hgb Conc 33.7 g/dL (32-36); Mean Corpuscular Volume 86.1 fL (81-99); Mean Platelet Vol. 11.2 fl (6.2-12.0); Monocyte# 0.06 X10^3/uL; Monocyte% 2.4 % (0-10); NRBC Flagged by Analyzer 0 % (0-5); Neutrophil # 2.07 X10^3/uL (2.7-7.7); Neutrophil % 81.1 % (47-70); POSITIVE DIFFERENTIAL YES; Platelet Count 137 K/mm3 (150-450); RBC Distribution Width CV 12.7 % (11.6-14.6); Red Blood Count 4.52 M/mm3 (4.2-5.4); White Blood Count 2.6 K/mm3 (4.4-11.0)
[2021-07-15 03:57] LABS: Differential Indicated SCAN CRITERIA MET
[2021-07-15 04:29] LABS: Anion Gap 7 (5-15); BUN 24 mg/dL (7-18); Calcium,Total 9.5 mg/dL (8.5-10.1); Chloride 102 mmol/L (98-107); EST Glomerular Filtration Rate 49 mL/min (>60); Est Glom Filt Rate - Afr Amer 60 mL/min (>60); Estimated Creatinine Clearance 45.74 ml/min; Glucose 228 mg/dL (74-106); Magnesium 2.2 mg/dL (1.6-2.6); Potassium 4.3 mmol/L (3.5-5.1); Sodium Level 140 mmol/L (136-145)
[2021-07-15 04:31] LABS: Differential Comment SCANNED
[2021-07-15] MEDS: prednisoLONE eye drops (5 mL) 1 DROP OPTH.BTL 1 DRP RIGHT EYE ×4 (04:46→20:19)
[2021-07-15] MEDS: Dicyclomine 10 MG Capsule PO ×4 (04:47→20:01)
[2021-07-15] MEDS: Levothyroxine 175 MCG Tablet PO (04:47)
[2021-07-15] MEDS: 0.9% Saline Lock 10 ML Syringe IV ×2 (04:47→20:05)
[2021-07-15] MEDS: Acetaminophen 325 MG Tablet 650 MG PO ×2 (07:10→20:02)
--- NOTE | 2021-07-15 07:39 | PCM.PN.INT ---
Assessment & Plan Assessment/Plan (1) Acute respiratory failure with hypoxia: (2) Pneumonia due to COVID-19 virus: PLAN: RECOMMENDATIONS: 1. Continue to wean FiO2 as tolerated for saturations greater than 90%. 2. Transition patient back to Airvo heated high flow once again this morning. 3. Continue Decadron to complete 10-day treatment course. 4. Defer antibiotics to infectious disease 5. Continue Lovenox as ordered along with baricitinib. 6. Aggressive electrolyte repletion 7. Continue Lantus at current dosing IMPRESSIONS: 1. Acute hypoxemic respiratory failure secondary to COVID-19 pneumonia The patient presented to the hospital with worsening dyspnea and hypoxemia. The patient's oxygenation status still remains quite tenuous. The patient remains on empiric antimicrobials along with Decadron, baricitinib and prophylactic Lovenox. The patient did receive remdesivir. CTA chest showed no evidence for PE. The patient will be continued on heated high flow oxygen as tolerated. FiO2 will be weaned to maintain saturations at or above 90%. Diarrhea is improved, so will attempt volume normalization with Lasix. 2. Acute kidney injury Improved today. Likely prerenal in etiology and related to diuretic utilization. IV Lasix has been discontinued. We will continue to monitor urine output for now. No current indication for renal replacement therapy. 3. Hypertension/hyperlipidemia/CKD/obesity/diabetes mellitus Complicates care, management, recovery and prognosis. Continue home medications as indicated, along with basal and sliding scale insulin coverage. This note was generated with [employer] dictation software. It may contain incorrect words, spelling, and punctuation that were not noted in checking the note before signing. Subjective Subjective Patient did okay overnight. No acute issues were reported. Patient did have a negative C. difficile, so Imodium was started and diarrhea is much improved. Patient overall is subjectively feeling stronger. Patient does report a cough productive of pale yellow to clear sputum. Objective Data Objective Data Vital Signs: Vital Signs Temp Pulse Resp BP Pulse Ox 36.6 C 75 17 105/85 H 92 07/15/21 04:00 07/15/21 07:16 07/15/21 07:16 07/15/21 07:00 07/15/21 07:16 Oxygen Flow Rate (L/min) 60 Oxygen Delivery Method Airvo Weight: 80.8 kg Body Mass Index (BMI) 32.5 Intake & Output: Intake and Output for Last 24 Hours 07/13/21 07/14/21 07/15/21 23:59 23:59 23:59 Intake Total 870 / 870 920 / 920 200 / 200 Output Total 125 / 125 2100 / 2100 Balance 870 / 745 795 / 795 -1900 / -1900 Lab / Micro Data Result Diagrams: 07/15/21 03:30 07/15/21 03:30 Labs: Laboratory Results - last 24 hr 07/14/21 05:25: Diff Path Review Reviewed 07/14/21 08:25: POC Glucose 48 L 07/14/21 09:27: POC Glucose 128 H 07/14/21 11:32: POC Glucose 125 H 07/14/21 16:17: POC Glucose 217 H 07/14/21 20:42: POC Glucose 197 H 07/15/21 03:30: WBC 2.6 L, RBC 4.52, Hgb 13.1, Hct 38.9, MCV 86.1, MCH 29.0, MCHC 33.7, RDW Std Deviation 40.0, RDW Coeff of Catina 12.7, Plt Count 137 L, MPV 11.2, Immature Gran % (Auto) 0.800, Neut % (Auto) 81.1 H, Lymph % (Auto) 15.3 L, [place] % (Auto) 2.4, Eos % (Auto) 0.4, Baso % (Auto) 0.0, Absolute Neuts (auto) 2.1, Absolute Lymphs (auto) 0.39 L, Nucleated RBC % 0, Differential Comment SCANNED, Diff Path Review May 07/15/21 03:30: Sodium 140, Potassium 4.3, Chloride 102, Carbon Dioxide 31.0, Anion Gap 7, BUN 24 H, Creatinine 1.20 H, Estim Creat Clear Calc 45.74, Est GFR (MDRD) Af Amer 60, Est GFR (MDRD) Non-Af 49 L, BUN/Creatinine Ratio 20.0, Glucose 228 H, Calcium 9.5, Magnesium 2.2 Micro: Microbiology 07/14/21 18:15 Stool C. difficile DNA Amplification - Final 07/11/21 16:18 Sputum, Expectorated/Coughed Gram Stain - Final 07/11/21 16:18 Sputum, Expectorated/Coughed Respiratory Culture - Preliminary Appears to be normal respiratory omid. Further studies to follow. 07/07/21 21:00 Sputum, Expectorated/Coughed Gram Stain - Final 07/07/21 21:00 Sputum, Expectorated/Coughed Respiratory Culture - Final 07/08/21 06:03 Urine, Clean Catch Legionella Antigen - Final 07/08/21 06:03 Urine, Clean Catch Streptococcus pneumoniae Antigen (M - Final 07/07/21 21:16 Mucosa - Nasopharyngeal Respiratory Panel (PCR) - Final Physical Exam Const alert and no apparent distress Constitutional Narrative: On Airvo. No conversational dyspnea General Appearance: cooperative Nutritional Appearance: obese HEENT normocephalic and head/scalp atraumatic Eyes PERRL and EOMs intact bilaterally Neck supple General: trachea midline Chest inspection of chest normal Chest: symmetrical chest wall rise; Negative for crepitus Resp Auscultation: diminished lung sounds; Negative for rales, rhonchi or wheezes Cardio regular rate, regular rhythm, S1 normal heart sound, S2 normal heart sound, no murmurs, no rub and no gallops GI normal to inspection, nondistended, normoactive bowel sounds Extremity no clubbing, cyanosis or edema Skin no rashes or lesions noted Neuro moves all extremities and no focal motor deficits Psych Mood & Affect: flat affect Charges/Coding Visit Charges Inpatient E&M: 61554 [facility] Hosp L3
[2021-07-15] MEDS: Insulin Lispro 100 UNIT/ML INSULN.PEN SC ×5 (07:59→20:16)
--- NOTE | 2021-07-15 08:04 | PCM.PN.HOSP ---
Subjective Subjective On BiPAP last night currently on air Vo. Objective Data Objective Data Vital Signs: Vital Signs Temp Pulse Resp BP Pulse Ox 97.8 F 75 17 105/85 H 92 07/15/21 04:00 07/15/21 07:16 07/15/21 07:16 07/15/21 07:00 07/15/21 07:16 Oxygen Flow Rate (L/min) 60 Oxygen Delivery Method Airvo Weight: 178 lb 2.136 oz Body Mass Index (BMI) 32.5 Intake & Output: Intake and Output for Last 24 Hours 07/13/21 07/14/21 07/15/21 23:59 23:59 23:59 Intake Total 870 / 870 920 / 920 200 / 200 Output Total 125 / 125 2100 / 2100 Balance 870 / 745 795 / 795 -1900 / -1900 Lab / Micro Data Result Diagrams: 07/15/21 03:30 07/15/21 03:30 Labs: Laboratory Results - last 24 hr 07/14/21 05:25: Diff Path Review Reviewed 07/14/21 08:25: POC Glucose 48 L 07/14/21 09:27: POC Glucose 128 H 07/14/21 11:32: POC Glucose 125 H 07/14/21 16:17: POC Glucose 217 H 07/14/21 20:42: POC Glucose 197 H 07/15/21 03:30: WBC 2.6 L, RBC 4.52, Hgb 13.1, Hct 38.9, MCV 86.1, MCH 29.0, MCHC 33.7, RDW Std Deviation 40.0, RDW Coeff of Catina 12.7, Plt Count 137 L, MPV 11.2, Immature Gran % (Auto) 0.800, Neut % (Auto) 81.1 H, Lymph % (Auto) 15.3 L, Maverick % (Auto) 2.4, Eos % (Auto) 0.4, Baso % (Auto) 0.0, Absolute Neuts (auto) 2.1, Absolute Lymphs (auto) 0.39 L, Nucleated RBC % 0, Differential Comment SCANNED, Diff Path Review February07/15/21 03:30: Sodium 140, Potassium 4.3, Chloride 102, Carbon Dioxide 31.0, Anion Gap 7, BUN 24 H, Creatinine 1.20 H, Estim Creat Clear Calc 45.74, Est GFR (MDRD) Af Amer 60, Est GFR (MDRD) Non-Af 49 L, BUN/Creatinine Ratio 20.0, Glucose 228 H, Calcium 9.5, Magnesium 2.2 Micro: Microbiology 07/14/21 18:15 Stool C. difficile DNA Amplification - Final 07/11/21 16:18 Sputum, Expectorated/Coughed Gram Stain - Final 07/11/21 16:18 Sputum, Expectorated/Coughed Respiratory Culture - Preliminary Appears to be normal respiratory omid. Further studies to follow. 07/07/21 21:00 Sputum, Expectorated/Coughed Gram Stain - Final 07/07/21 21:00 Sputum, Expectorated/Coughed Respiratory Culture - Final 07/08/21 06:03 Urine, Clean Catch Legionella Antigen - Final 07/08/21 06:03 Urine, Clean Catch Streptococcus pneumoniae Antigen (M - Final 07/07/21 21:16 Mucosa - Nasopharyngeal Respiratory Panel (PCR) - Final Physical Exam Narrative General: Alert, Oriented x3, Cooperative HEENT: Atraumatic, PERRLA, EOMI, Normocephalic Oral: No Gingival or Mucosal Lesions/ Ulcerations Neck: Supple, No JVD, Negative Carotid Bruits Lungs: Air entry diminished in bilateral lung bases. No crepitation/rhonchi. on NIPPV. Cardiovascular: Regular rate, Regular Rhythm, Normal S1, Normal S2, No murmurs Abdomen: Bowel Sounds Present, Soft, Non Tender, Non-Distended : No renal angle tenderness. No suprapubic tenderness. Extremities: No edema, Capillary Refill Less than 3 Seconds Skin: No rashes, No breakdown Musculoskeletal: No Tenderness to Palpation of Joints or Extremities Neurological: Cranial nerves II-XII grossly intact, DTR 2+/4 and Symmetrical, Neuro grossly intact Psych/Mental Status: Flat affect. Assessment & Plan Assessment/Plan (1) Acute respiratory failure with hypoxia: (2) Pneumonia due to COVID-19 virus: (3) JOSIE (acute kidney injury): (4) Hypotension: QUALIFIERS: Hypotension type: unspecified hypotension type Qualified Code(s): I95.9 - Hypotension, unspecified PLAN: 1. Acute hypoxic respiratory failure secondary to bilateral COVID-19 pneumonia: Patient is unvaccinated. On dexamethasone through his 07/16. Patient completed remdesivir 10/8. Quarantine through 07/21. Continue incentive spirometry. BUN/creatinine elevated. Creatinine went up from 0.9-1.05, still on baseline. Patient transferred from PCU to ICU. Currently alternating air Vo and BiPAP 07/14: Mild hypokalemia, potassium getting replaced. 07/15: Patient on 70% FiO2 interval was on BiPAP last night. 2. Hypertension.Blood pressure on lower side but currently has recovered.: HCTZ, lisinopril and diuretics held. 4. JOSIE on CKD III A during hospital course: Furosemide held on 07/12. 500 cc of IV fluid was given. JOSIE resolved. Creatinine back on the baseline 1.02. 07/14: Creatinine back to 1.18. 5. Diabetes mellitus type 2: Patient with hypoglycemia therefore Lantus and Humalog scheduled insulin dose decreased with holding parameter; hold if glucose less than 130 mg/dl. 07/15: Glucose in 200s. Lantus and Humalog sliding scale increased slightly with holding parameters. 6. Retrosternal pain possible GERD: on Protonix 30 mg twice daily. VTE prophylaxis: LMWH Prognosis: guarded given worsening respiratory status and hypotension. Advance care planning: Full code. Charges/Coding Visit Charges Inpatient E&M: 19138 Subs Hosp L3
[2021-07-15 08:11] LABS: Bedside Glucose 183 mg/dL (70-110)
[2021-07-15] MEDS: Enoxaparin 30 MG/0.3 ML Syringe SC ×2 (09:45→20:01)
[2021-07-15] MEDS: dexAMETHasone 4 MG Tablet 6 MG PO (09:46)
[2021-07-15] MEDS: Pantoprazole Sodium 40 MG Tablet PO ×2 (09:46→20:01)
[2021-07-15] MEDS: Ascorbic Acid 500 MG Tablet 1000 MG PO (09:47)
[2021-07-15] MEDS: Furosemide 40 MG Tablet PO ×2 (09:47→17:17)
[2021-07-15] MEDS: Fenofibrate 145 MG Tablet PO (09:47)
[2021-07-15] MEDS: Menthol/Lanolin/Calamine/Znox 113 GM Tube 1 APPLIC TOPICAL ×2 (10:01→20:12)
[2021-07-15] MEDS: Insulin Lispro 100 UNIT/ML INSULN.PEN 8 UNIT SC ×2 (11:17→16:04)
[2021-07-15 11:25] LABS: Bedside Glucose 272 mg/dL (70-110)
[2021-07-15 13:27] LABS: Pathologist Review Reviewed
[2021-07-15 16:10] LABS: Bedside Glucose 366 mg/dL (70-110)
[2021-07-15] MEDS: Loperamide 2 MG Capsule PO (20:02)
[2021-07-15] MEDS: Atorvastatin Calcium 20 MG Tablet PO (20:02)
[2021-07-15] MEDS: Gabapentin 300 MG Capsule PO (20:02)
[2021-07-15] MEDS: Fluticasone 0.05% 1 SPRAY NASAL.SRY 2 SPRAY NASAL (20:13)
[2021-07-15 20:31] LABS: Bedside Glucose 367 mg/dL (70-110)
[2021-07-15] MEDS: MELATONIN 3 MG TABLET PO (21:00)
[2021-07-16] VITALS (37 sets, daily range): BP systolic 90–153; BP diastolic 53–103; PULSE 60–88; RESP 12–30; TEMP 36.1–36.6; O2SAT 89–100
[2021-07-16 03:37] LABS: Absolute Lymphocyte Count 0.42 X10^3/uL (0.83-4.51); Absolute Neutrophil Count 5.1 X10^3/uL (2.0-7.7); Basophil# 0.01 X10^3/uL; Basophil% 0.2 % (0-1); Eosinophil# 0.01 X10^3/uL; Eosinophils% 0.2 % (0-5); Hematocrit 39.9 % (37-47); Hemoglobin 13.3 g/dL (12.0-15.0); Lymphocyte # 0.42 X10^3/ul (0.83-4.51); Lymphocyte % 7.5 % (19-41); Mean Corp Hgb Conc 33.3 g/dL (32-36); Mean Corpuscular Hgb 28.4 pg (27.0-32.0); Mean Corpuscular Volume 85.3 fL (81-99); Mean Platelet Vol. 11.4 fl (6.2-12.0); Monocyte# 0.09 X10^3/uL; Monocyte% 1.6 % (0-10); NRBC Flagged by Analyzer 0 % (0-5); Neutrophil # 5.06 X10^3/uL (2.7-7.7); POSITIVE DIFFERENTIAL YES; Platelet Count 205 K/mm3 (150-450); RBC Distribution Width CV 12.6 % (11.6-14.6); RBC Distribution Width SD 38.9 fl (35.1-43.9); Red Blood Count 4.68 M/mm3 (4.2-5.4); White Blood Count 5.6 K/mm3 (4.4-11.0)
[2021-07-16 03:51] LABS: Differential Indicated SCAN CRITERIA MET
[2021-07-16 03:52] LABS: Anion Gap 7 (5-15); BUN 28 mg/dL (7-18); BUN/Creat Ratio 21.7 RATIO (10-20); Calcium,Total 9.9 mg/dL (8.5-10.1); Chloride 95 mmol/L (98-107); Creatinine, Serum 1.29 mg/dL (0.55-1.02); EST Glomerular Filtration Rate 46 mL/min (>60); Est Glom Filt Rate - Afr Amer 55 mL/min (>60); Estimated Creatinine Clearance 42.55 ml/min; Glucose 271 mg/dL (74-106); Magnesium 2.2 mg/dL (1.6-2.6); Potassium 4.1 mmol/L (3.5-5.1); Sodium Level 137 mmol/L (136-145)
[2021-07-16 04:09] LABS: Differential Comment SCANNED
[2021-07-16] MEDS: Dicyclomine 10 MG Capsule PO ×4 (04:16→20:13)
[2021-07-16] MEDS: prednisoLONE eye drops (5 mL) 1 DROP OPTH.BTL 1 DRP RIGHT EYE ×4 (04:16→20:42)
[2021-07-16] MEDS: Levothyroxine 175 MCG Tablet PO (04:16)
--- NOTE | 2021-07-16 07:14 | PN.CC_ITS ---
Assessment & Plan Assessment/Plan (1) Acute respiratory failure with hypoxia: (2) Pneumonia due to COVID-19 virus: PLAN: RECOMMENDATIONS: 1. Continue to wean FiO2 as tolerated for saturations greater than 90%. 2. Continue to wean Airvo as tolerated. Possible high flow nasal cannula l ater today 3. Continue Decadron to complete 10-day treatment course. 4. Monitoring off antibiotics at this time. 5. Continue Lovenox as ordered along with baricitinib. No indication for discontinuation 6. Aggressive electrolyte repletion 7. Increase Lantus slightly IMPRESSIONS: 1. Acute hypoxemic respiratory failure secondary to COVID-19 pneumonia The patient presented to the hospital with worsening dyspnea and hypoxemia. The patient's oxygenation status still remains quite tenuous. The patient remains on empiric antimicrobials along with Decadron, baricitinib and prophylactic Lovenox. The patient did receive remdesivir. CTA chest showed no evidence for PE. The patient will be continued on heated high flow oxygen as t olerated. FiO2 will be weaned to maintain saturations at or above 90%. We will hold on diuretics today given increase in creatinine. 2. Acute kidney injury Stable today. Likely prerenal in etiology and related to diuretic utilization. IV Lasix will be dosed as possible given renal function. We will continue to monitor urine output for now. No current indication for renal replacement therapy. 3. Hypertension/hyperlipidemia/CKD/obesity/diabetes mellitus Complicates care, management, recovery and prognosis. Continue home medications as indicated, along with basal and sliding scale insulin coverage. This note was generated with [employer] dictation software. It may contain incorrect words, spelling, and punctuation that were not noted in checking the note before signing. Subjective Subjective Patient did okay overnight. No acute issues were reported. Patient did wear BiPAP for 4 hours. Patient is not reporting any diarrhea, but has been able to get up to the bedside commode independently. Objective Data Objective Data Vital Signs: Vital Signs Temp Pulse Resp BP Pulse Ox 36.6 C 74 22 H 114/74 93 07/16/21 03:33 07/16/21 07:07 07/16/21 07:07 07/16/21 07:00 07/16/21 07:07 Oxygen Flow Rate (L/min) 60 Oxygen Delivery Method Airvo Weight: 80.8 kg Body Mass Index (BMI) 32.5 Intake & Output: Intake and Output for Last 24 Hours 07/14/21 07/15/21 07/16/21 23:59 23:59 23:59 Intake Total 920 / 920 640 / 640 460 / 460 Output Total 125 / 125 4000 / 4000 650 / 650 Balance 795 / 795 -3360 / -3360 -190 / -190 Lab / Micro Data Result Diagrams: 07/16/21 03:20 07/16/21 03:20 Labs: Laboratory Results - last 24 hr 07/15/21 03:30: Diff Path Review Reviewed 07/15/21 07:57: POC Glucose 183 H 07/15/21 11:15: POC Glucose 272 H 07/15/21 15:56: POC Glucose 366 H 07/15/21 20:15: POC Glucose 367 H 07/16/21 03:20: WBC 5.6, RBC 4.68, Hgb 13.3, Hct 39.9, MCV 85.3, MCH 28.4, MCHC 33.3, RDW Std Deviation 38.9, RDW Coeff of Catina 12.6, Plt Count 205, MPV 11.4, Immature Gran % (Auto) 0.500, Neut % (Auto) 90.0 H, Lymph % (Auto) 7.5 L, [place] % (Auto) 1.6, Eos % (Auto) 0.2, Baso % (Auto) 0.2, Absolute Neuts (auto) 5.1, Absolute Lymphs (auto) 0.42 L, Nucleated RBC % 0, Differential Comment SCANNED 07/16/21 03:20: Sodium 137, Potassium 4.1, Chloride 95 L, Carbon Dioxide 35.0 H, Anion Gap 7, BUN 28 H, Creatinine 1.29 H, Estim Creat Clear Calc 42.55, Est GFR (MDRD) Af Amer 55 L, Est GFR (MDRD) Non-Af 46 L, BUN/Creatinine Ratio 21.7 H, Glucose 271 H, Calcium 9.9, Magnesium 2.2 Micro: Microbiology 07/11/21 16:18 Sputum, Expectorated/Coughed Gram Stain - Final 07/11/21 16:18 Sputum, Expectorated/Coughed Respiratory Culture - Final Mixed normal respiratory omid. No Streptococcus pneumoniae, beta-hemolytic Streptococcus or Staphylococcus aureus isolated. 07/14/21 18:15 Stool C. difficile DNA Amplification - Final 07/07/21 21:00 Sputum, Expectorated/Coughed Gram Stain - Final 07/07/21 21:00 Sputum, Expectorated/Coughed Respiratory Culture - Final 07/08/21 06:03 Urine, Clean Catch Legionella Antigen - Final 07/08/21 06:03 Urine, Clean Catch Streptococcus pneumoniae Antigen (M - Final 07/07/21 21:16 Mucosa - Nasopharyngeal Respiratory Panel (PCR) - Final Physical Exam Const alert and no apparent distress Constitutional Narrative: On Airvo. No conversational dyspnea General Appearance: cooperative Nutritional Appearance: obese HEENT normocephalic and head/scalp atraumatic Eyes PERRL and EOMs intact bilaterally Neck supple General: trachea midline Chest inspection of chest normal Chest: symmetrical chest wall rise; Negative for crepitus Resp Auscultation: diminished lung sounds; Negative for rales, rhonchi or wheezes Cardio regular rate, regular rhythm, S1 normal heart sound, S2 normal heart sound, no murmurs, no rub and no gallops GI normal to inspection, nondistended, normoactive bowel sounds Extremity no clubbing, cyanosis or edema Skin no rashes or lesions noted Neuro moves all extremities and no focal motor deficits Psych Mood & Affect: flat affect Charges/Coding Visit Charges Inpatient E&M: 58085 Subs Hosp L3
[2021-07-16] MEDS: Insulin Lispro 100 UNIT/ML INSULN.PEN SC ×4 (08:33→20:21)
[2021-07-16] MEDS: Insulin Lispro 100 UNIT/ML INSULN.PEN 8 UNIT SC ×3 (08:34→16:52)
[2021-07-16] MEDS: Enoxaparin 30 MG/0.3 ML Syringe SC ×2 (08:35→20:14)
[2021-07-16] MEDS: dexAMETHasone 4 MG Tablet 6 MG PO (08:38)
[2021-07-16] MEDS: Pantoprazole Sodium 40 MG Tablet PO ×2 (08:38→20:14)
[2021-07-16] MEDS: Fenofibrate 145 MG Tablet PO (08:38)
[2021-07-16] MEDS: Ascorbic Acid 500 MG Tablet 1000 MG PO (08:38)
[2021-07-16 09:06] LABS: Bedside Glucose 209 mg/dL (70-110)
[2021-07-16] MEDS: Loperamide 2 MG Capsule PO (12:37)
[2021-07-16] MEDS: guaiFENesin/Codeine 5 ML UDC 10 ML PO (12:38)
[2021-07-16] MEDS: Ibuprofen 400 MG Tablet PO (12:40)
[2021-07-16 13:06] LABS: Bedside Glucose 218 mg/dL (70-110)
--- NOTE | 2021-07-16 16:42 | PN.HOSP_ITS ---
Subjective Subjective Patient was seen and examined today, she remains on Airvo at this time, she does not appear to be in any distress, I talked briefly with pulmonary medicine about her care. Objective Data Objective Data Vital Signs: Vital Signs Temp Pulse Resp BP Pulse Ox 97 F L 74 20 H 130/72 H 96 07/16/21 12:00 07/16/21 16:00 07/16/21 16:00 07/16/21 16:00 07/16/21 16:00 Oxygen Flow Rate (L/min) 60 Oxygen Delivery Method Airvo Weight: 80.8 kg Body Mass Index (BMI) 32.5 Intake & Output: Intake and Output for Last 24 Hours 07/14/21 07/15/21 07/16/21 23:59 23:59 23:59 Intake Total 920 / 920 640 / 640 940 / 940 Output Total 125 / 125 4000 / 4000 650 / 650 Balance 795 / 795 -3360 / -3360 290 / 290 Lab / Micro Data Result Diagrams: 07/16/21 03:20 07/16/21 03:20 Labs: Laboratory Results - last 24 hr 07/15/21 20:15: POC Glucose 367 H 07/16/21 03:20: WBC 5.6, RBC 4.68, Hgb 13.3, Hct 39.9, MCV 85.3, MCH 28.4, MCHC 33.3, RDW Std Deviation 38.9, RDW Coeff of Catina 12.6, Plt Count 205, MPV 11.4, Immature Gran % (Auto) 0.500, Neut % (Auto) 90.0 H, Lymph % (Auto) 7.5 L, [place] % (Auto) 1.6, Eos % (Auto) 0.2, Baso % (Auto) 0.2, Absolute Neuts (auto) 5.1, Absolute Lymphs (auto) 0.42 L, Nucleated RBC % 0, Differential Comment SCANNED 07/16/21 03:20: Sodium 137, Potassium 4.1, Chloride 95 L, Carbon Dioxide 35.0 H, Anion Gap 7, BUN 28 H, Creatinine 1.29 H, Estim Creat Clear Calc 42.55, Est GFR (MDRD) Af Amer 55 L, Est GFR (MDRD) Non-Af 46 L, BUN/Creatinine Ratio 21.7 H, Glucose 271 H, Calcium 9.9, Magnesium 2.2 07/16/21 08:29: POC Glucose 209 H 07/16/21 12:34: POC Glucose 218 H Micro: Microbiology 07/11/21 16:18 Sputum, Expectorated/Coughed Gram Stain - Final 07/11/21 16:18 Sputum, Expectorated/Coughed Respiratory Culture - Final Mixed normal respiratory omid. No Streptococcus pneumoniae, beta-hemolytic Streptococcus or Staphylococcus aureus isolated. 07/14/21 18:15 Stool C. difficile DNA Amplification - Final 07/07/21 21:00 Sputum, Expectorated/Coughed Gram Stain - Final 07/07/21 21:00 Sputum, Expectorated/Coughed Respiratory Culture - Final 07/08/21 06:03 Urine, Clean Catch Legionella Antigen - Final 07/08/21 06:03 Urine, Clean Catch Streptococcus pneumoniae Antigen (M - Final 07/07/21 21:16 Mucosa - Nasopharyngeal Respiratory Panel (PCR) - Final Physical Exam Const alert, oriented x3, no apparent distress and healthy appearing General Appearance: cooperative, well kempt and well developed Orientation / Consciousness: awake, oriented to person, oriented to place and oriented to time HEENT normocephalic and moist oral mucous membranes Eyes PERRL, EOMs intact bilaterally and conjunctivae normal Neck nuchal rigidity, supple, no JVD, thyroid normal and no carotid bruits General: trachea midline Resp normal respiratory effort, no retractions, no use of accessory muscles and clear to auscultation bilaterally Auscultation: Negative for rales, rhonchi or wheezes Cardio regular rate, regular rhythm, S1 normal heart sound, S2 normal heart sound, no murmurs, no rub, no gallops and no clicks GI normal to inspection, nondistended, normoactive bowel sounds, soft to palpation, non-tender and non-distended Extremity normal to inspection and no clubbing, cyanosis or edema Skin no rashes or lesions noted General Skin Exam: no breakdown Neuro oriented x3, CN's II-XII intact bilaterally, no focal motor deficits and no sensory deficits noted Sensorium / Orientation: awake and alert Speech: speech normal Psych thought process normal and affect normal Assessment & Plan Assessment/Plan (1) Pneumonia due to COVID-19 virus: PLAN: 1. Acute hypoxemic respiratory failure secondary to COVID-19 pneumonia-continue to try and wean oxygen if possible #2 COVID-19 pneumonia, patient has received remdesivir, she remains on baricitinib, Decadron, and prophylactic Lovenox. #3 essential hypertension #4 acute kidney injury-labs will be monitored Charges/Coding Visit Charges Inpatient E&M: 45808 Subs Hosp L2
[2021-07-16 19:11] LABS: Bedside Glucose 342 mg/dL (70-110)
[2021-07-16] MEDS: MELATONIN 3 MG TABLET PO (20:13)
[2021-07-16] MEDS: Atorvastatin Calcium 20 MG Tablet PO (20:13)
[2021-07-16] MEDS: Acetaminophen 325 MG Tablet 650 MG PO (20:14)
[2021-07-16] MEDS: Gabapentin 300 MG Capsule PO (20:14)
[2021-07-16] MEDS: Menthol/Lanolin/Calamine/Znox 113 GM Tube 1 APPLIC TOPICAL (20:17)
[2021-07-16] MEDS: Fluticasone 0.05% 1 SPRAY NASAL.SRY 2 SPRAY NASAL (20:21)
[2021-07-16] MEDS: 0.9% Saline Lock 10 ML Syringe IV (20:23)
[2021-07-16 21:25] LABS: Bedside Glucose 274 mg/dL (70-110)
[2021-07-17] VITALS (15 sets, daily range): BP systolic 98–135; BP diastolic 49–78; PULSE 56–80; RESP 12–25; TEMP 36.4–36.9; O2SAT 86–97
--- NOTE | 2021-07-17 01:40 | NURSING ---
report called to annita
--- NOTE | 2021-07-17 02:04 | NURSING ---
pt transfer to [facility] on bipap
--- NOTE | 2021-07-17 02:28 | PCM.PN.BLA ---
Progress Note Responded to stroke alert: Nurse reported the patient is not withdrawing to pain from all extremities plus patient's pupils are sluggish to light. Additionally nurse reported patient has been having some jerky movements of his upper extremities. Patient was examined at the bedside. Patient noted not to be withdrawing from pain. Tachycardia, lungs with rales. Abdomen obese nontender. Extremities without edema. Impression Acute encephalopathy. Cancel stroke alert CT head ordered. Keppra 1000 mg IV ordered. SOC consults.
[2021-07-17] MEDS: Levothyroxine 175 MCG Tablet PO (06:34)
[2021-07-17] MEDS: prednisoLONE eye drops (5 mL) 1 DROP OPTH.BTL 1 DRP RIGHT EYE ×3 (06:34→16:43)
[2021-07-17] MEDS: Dicyclomine 10 MG Capsule PO ×4 (06:34→22:38)
[2021-07-17] MEDS: Insulin Lispro 100 UNIT/ML INSULN.PEN SC ×3 (06:36→16:42)
[2021-07-17 06:46] LABS: Bedside Glucose 264 mg/dL (70-110)
--- NOTE | 2021-07-17 06:48 | PCM.PN.BLA ---
Progress Note Please discard stroke alert note. It was for another patient
[2021-07-17 08:45] LABS: Anion Gap 7 (5-15); BUN 36 mg/dL (7-18); BUN/Creat Ratio 34.6 RATIO (10-20); Calcium,Total 9.9 mg/dL (8.5-10.1); Chloride 98 mmol/L (98-107); Creatinine, Serum 1.04 mg/dL (0.55-1.02); EST Glomerular Filtration Rate 58 mL/min (>60); Est Glom Filt Rate - Afr Amer 71 mL/min (>60); Estimated Creatinine Clearance 52.78 ml/min; Glucose 237 mg/dL (74-106); Magnesium 2.2 mg/dL (1.6-2.6); Potassium 3.8 mmol/L (3.5-5.1); Sodium Level 137 mmol/L (136-145)
[2021-07-17] MEDS: dexAMETHasone 4 MG Tablet 6 MG PO (09:27)
[2021-07-17] MEDS: Pantoprazole Sodium 40 MG Tablet PO ×2 (09:27→22:50)
[2021-07-17] MEDS: Enoxaparin 30 MG/0.3 ML Syringe SC ×2 (09:27→23:25)
[2021-07-17] MEDS: Ascorbic Acid 500 MG Tablet 1000 MG PO (09:27)
[2021-07-17] MEDS: Fenofibrate 145 MG Tablet PO (09:27)
[2021-07-17] MEDS: Insulin Lispro 100 UNIT/ML INSULN.PEN 8 UNIT SC ×3 (09:29→16:42)
--- NOTE | 2021-07-17 10:08 | PCM.PN.INT ---
Assessment & Plan Assessment/Plan (1) Acute respiratory failure with hypoxia: (2) Pneumonia due to COVID-19 virus: PLAN: RECOMMENDATIONS: 1. Continue to wean FiO2 as tolerated for saturations greater than 90%. 2. Continue to wean Airvo as tolerated. Attempt nasal cannula later today if continues to improve 3. Continue Decadron to complete 10-day treatment course. 4. Monitoring off antibiotics at this time. 5. Continue Lovenox as ordered along with baricitinib. No indication for discontinuation 6. Aggressive electrolyte repletion 7. Increase Lantus slightly IMPRESSIONS: 1. Acute hypoxemic respiratory failure secondary to COVID-19 pneumonia The patient presented to the hospital with worsening dyspnea and hypoxemia. The patient's oxygenation status still remains quite tenuous. The patient remains on empiric antimicrobials along with Decadron, baricitinib and prophylactic Lovenox. The patient did receive remdesivir. CTA chest showed no evidence for PE. The patient will be continued on heated high flow oxygen as tolerated. FiO2 will be weaned to maintain saturations at or above 90%. We will challenge with diuretics for today with goal of -500 cc. 2. Acute kidney injury Stable today. Likely prerenal in etiology and related to diuretic utilization. IV Lasix will be dosed as possible given renal function. We will continue to monitor urine output for now. No current indication for renal replacement therapy. 3. Hypertension/hyperlipidemia/CKD/obesity/diabetes mellitus Complicates care, management, recovery and prognosis. Continue home medications as indicated, along with basal and sliding scale insulin coverage. This note was generated with [employer] dictation software. It may contain incorrect words, spelling, and punctuation that were not noted in checking the note before signing. Subjective Subjective Patient did well overnight. Patient was able to be transferred out of the intensive care unit yesterday. Patient subjectively feels slightly improved compared to yesterday and attributes this to good sleep overnight. No chest pain has been reported. Patient is having a periodic cough. Objective Data Objective Data Vital Signs: Vital Signs Temp Pulse Resp BP Pulse Ox 36.8 C 71 16 98/49 L 96 07/17/21 09:20 07/17/21 09:20 07/17/21 09:20 07/17/21 09:20 07/17/21 09:20 Oxygen Flow Rate (L/min) 60 Oxygen Delivery Method Airvo Weight: 80.5 kg Body Mass Index (BMI) 32.5 Intake & Output: Intake and Output for Last 24 Hours 07/15/21 07/16/21 07/17/21 23:59 23:59 23:59 Intake Total 640 / 640 2420 / 2420 Output Total 4000 / 4000 2150 / 2150 Balance -3360 / -3360 270 / 270 Lab / Micro Data Result Diagrams: 07/16/21 03:20 07/17/21 07:34 Labs: Laboratory Results - last 24 hr 07/16/21 12:34: POC Glucose 218 H 07/16/21 16:49: POC Glucose 342 H 07/16/21 20:19: POC Glucose 274 H 07/17/21 06:33: POC Glucose 264 H 07/17/21 07:34: Sodium 137, Potassium 3.8, Chloride 98, Carbon Dioxide 32.0, Anion Gap 7, BUN 36 H, Creatinine 1.04 H, Estim Creat Clear Calc 52.78, Est GFR (MDRD) Af Amer 71, Est GFR (MDRD) Non-Af 58 L, BUN/Creatinine Ratio 34.6 H, Glucose 237 H, Calcium 9.9, Magnesium 2.2 Micro: Microbiology 07/11/21 16:18 Sputum, Expectorated/Coughed Gram Stain - Final 07/11/21 16:18 Sputum, Expectorated/Coughed Respiratory Culture - Final Mixed normal respiratory omid. No Streptococcus pneumoniae, beta-hemolytic Streptococcus or Staphylococcus aureus isolated. 07/14/21 18:15 Stool C. difficile DNA Amplification - Final 07/07/21 21:00 Sputum, Expectorated/Coughed Gram Stain - Final 07/07/21 21:00 Sputum, Expectorated/Coughed Respiratory Culture - Final 07/08/21 06:03 Urine, Clean Catch Legionella Antigen - Final 07/08/21 06:03 Urine, Clean Catch Streptococcus pneumoniae Antigen (M - Final 07/07/21 21:16 Mucosa - Nasopharyngeal Respiratory Panel (PCR) - Final Physical Exam Const alert and no apparent distress Constitutional Narrative: On Airvo. No conversational dyspnea General Appearance: cooperative Nutritional Appearance: obese HEENT normocephalic and head/scalp atraumatic Eyes PERRL and EOMs intact bilaterally Neck supple General: trachea midline Chest inspection of chest normal Chest: symmetrical chest wall rise; Negative for crepitus Resp Auscultation: diminished lung sounds; Negative for rales, rhonchi or wheezes Cardio regular rate, regular rhythm, S1 normal heart sound, S2 normal heart sound, no murmurs, no rub and no gallops GI normal to inspection, nondistended, normoactive bowel sounds Extremity no clubbing, cyanosis or edema Skin no rashes or lesions noted Neuro moves all extremities and no focal motor deficits Psych Mood & Affect: flat affect Charges/Coding Visit Charges Inpatient E&M: 58728 Subs Hosp L3
[2021-07-17 11:21] LABS: Bedside Glucose 214 mg/dL (70-110)
[2021-07-17] MEDS: Furosemide 20 MG Tablet PO ×2 (11:43→16:46)
[2021-07-17] MEDS: Potassium Chloride Oral Tablet 20 MEQ 40 MEQ PO (11:44)
[2021-07-17 11:55] LABS: Bedside Glucose 206 mg/dL (70-110)
--- NOTE | 2021-07-17 16:04 | CHAPLAIN ---
Type of Pastoral Visit ___ Initial Visit ___ Follow-up Visit ___ On-call Visit ___ General Patient Visit ___ Spiritual Assessment ___ Family Conference ___ Bereavement ___ Rapid Response ___ Code Blue _x__ Other (describe below) Pastoral Care Referral From _x__ Patient ___ Family ___ Nurse ___ Physician ___ Alarm Installer ___ [employer] Consultant _x__ Other (describe below) Sacrament/Intervention _x__ Active listening ___ Anointing ___ Gnosticist ___ Bereavement ___ Communion ___ Vicky exploration ___ ___ Life review _x__ Prayer ___ Reconciliation ___ Sacrament of Sick ___ Supportive presence ___ Wedding _x__ Other (describe below) Pastoral Comments LIGHTING DESIGNER requested a visit from bi report developer for this patient as pt was seeking prayer, Bible, and spiritual support; phone call made into this isolation room and pt answers phone and is able to talk; pt expresses concern for her health and for her [id number] who is also hospitalized at this time; pt has seen some improvement and wants to be well; pt gives current life situation; prayer and time to listen is given; Bible is taken to door so next staff member can give to pt;
[2021-07-17 16:55] LABS: Bedside Glucose 315 mg/dL (70-110)
--- NOTE | 2021-07-17 19:06 | PCM.PN.HOSP ---
Subjective Subjective Patient was seen and examined today, she is currently on Airvo today, she does not appear to be in any distress and does not complain of any chest pain or shortness of breath at rest. Objective Data Objective Data Vital Signs: Vital Signs Temp Pulse Resp BP Pulse Ox 98.5 F 80 18 135/70 H 97 07/17/21 15:05 07/17/21 15:05 07/17/21 15:05 07/17/21 15:05 07/17/21 15:05 Oxygen Flow Rate (L/min) 60 Oxygen Delivery Method Airvo Weight: 80.5 kg Body Mass Index (BMI) 32.5 Intake & Output: Intake and Output for Last 24 Hours 07/15/21 07/16/21 07/17/21 23:59 23:59 23:59 Intake Total 640 / 640 2420 / 2420 1000 / 1000 Output Total 4000 / 4000 2150 / 2150 Balance -3360 / -3360 270 / 270 1000 / 1000 Lab / Micro Data Result Diagrams: 07/16/21 03:20 07/17/21 07:34 Labs: Laboratory Results - last 24 hr 07/16/21 16:49: POC Glucose 342 H 07/16/21 20:19: POC Glucose 274 H 07/17/21 06:33: POC Glucose 264 H 07/17/21 07:34: Sodium 137, Potassium 3.8, Chloride 98, Carbon Dioxide 32.0, Anion Gap 7, BUN 36 H, Creatinine 1.04 H, Estim Creat Clear Calc 52.78, Est GFR (MDRD) Af Amer 71, Est GFR (MDRD) Non-Af 58 L, BUN/Creatinine Ratio 34.6 H, Glucose 237 H, Calcium 9.9, Magnesium 2.2 07/17/21 09:17: POC Glucose 214 H 07/17/21 11:42: POC Glucose 206 H 07/17/21 16:40: POC Glucose 315 H Micro: Microbiology 07/11/21 16:18 Sputum, Expectorated/Coughed Gram Stain - Final 07/11/21 16:18 Sputum, Expectorated/Coughed Respiratory Culture - Final Mixed normal respiratory omid. No Streptococcus pneumoniae, beta-hemolytic Streptococcus or Staphylococcus aureus isolated. 07/14/21 18:15 Stool C. difficile DNA Amplification - Final 07/07/21 21:00 Sputum, Expectorated/Coughed Gram Stain - Final 07/07/21 21:00 Sputum, Expectorated/Coughed Respiratory Culture - Final 07/08/21 06:03 Urine, Clean Catch Legionella Antigen - Final 07/08/21 06:03 Urine, Clean Catch Streptococcus pneumoniae Antigen (M - Final 07/07/21 21:16 Mucosa - Nasopharyngeal Respiratory Panel (PCR) - Final Physical Exam Narrative alert, oriented x3, no apparent distress and healthy appearing General Appearance: cooperative, well kempt and well developed Orientation / Consciousness: awake, oriented to person, oriented to place and oriented to time HEENT normocephalic and moist oral mucous membranes Eyes PERRL, EOMs intact bilaterally and conjunctivae normal Neck nuchal rigidity, supple, no JVD, thyroid normal and no carotid bruits General: trachea midline Resp normal respiratory effort, no retractions, no use of accessory muscles and clear to auscultation bilaterally Auscultation: Negative for rales, rhonchi or wheezes Cardio regular rate, regular rhythm, S1 normal heart sound, S2 normal heart sound, no murmurs, no rub, no gallops and no clicks GI normal to inspection, nondistended, normoactive bowel sounds, soft to palpation, non-tender and non-distended Extremity normal to inspection and no clubbing, cyanosis or edema Skin no rashes or lesions noted General Skin Exam: no breakdown Neuro oriented x3, CN's II-XII intact bilaterally, no focal motor deficits and no sensory deficits noted Sensorium / Orientation: awake and alert Speech: speech normal Psych thought process normal and affect normal Assessment & Plan Assessment/Plan (1) Acute respiratory failure with hypoxia: (2) Pneumonia due to COVID-19 virus: PLAN: 1. Acute hypoxemic respiratory failure secondary to COVID-19 pneumonia-continue to try and wean oxygen if possible #2 COVID-19 pneumonia, patient has received remdesivir, she remains on baricitinib, Decadron, and prophylactic Lovenox. #3 essential hypertension #4 acute kidney injury-labs will be monitored, patient's kidney function is improved today #5 type 2 diabetes-blood sugars will be monitored, sliding scale insulin will be administered as needed, patient is currently on basal insulin and insulin with each meal. Charges/Coding Visit Charges Inpatient E&M: 77283 Subs Hosp L2
[2021-07-17] MEDS: Atorvastatin Calcium 20 MG Tablet PO (22:34)
[2021-07-17] MEDS: Menthol/Lanolin/Calamine/Znox 113 GM Tube 1 APPLIC TOPICAL (22:44)
[2021-07-17] MEDS: Fluticasone 0.05% 1 SPRAY NASAL.SRY 2 SPRAY NASAL (22:45)
[2021-07-17 22:55] LABS: Bedside Glucose 485 mg/dL (70-110)
[2021-07-17] MEDS: Gabapentin 300 MG Capsule PO (23:27)
[2021-07-17] MEDS: Insulin Lispro 100 UNIT/ML INSULN.PEN 10 UNIT SC (23:30)
[2021-07-17] MEDS: Acetaminophen 325 MG Tablet 650 MG PO (23:32)
[2021-07-17] MEDS: guaiFENesin/Codeine 5 ML UDC 10 ML PO (23:41)
[2021-07-18] VITALS (15 sets, daily range): BP systolic 96–122; BP diastolic 50–72; PULSE 61–82; RESP 12–20; TEMP 36.3–36.7; O2SAT 79–96
[2021-07-18] MEDS: prednisoLONE eye drops (5 mL) 1 DROP OPTH.BTL 1 DRP RIGHT EYE ×4 (01:31→16:56)
[2021-07-18] MEDS: Dicyclomine 10 MG Capsule PO ×4 (07:20→22:52)
[2021-07-18] MEDS: Levothyroxine 175 MCG Tablet PO (07:20)
[2021-07-18] MEDS: proCHLORPERazine 10 MG/2 ML Vial 5 MG IV ×2 (07:23→22:48)
[2021-07-18 07:25] LABS: Absolute Lymphocyte Count 0.58 X10^3/uL (0.83-4.51); Absolute Neutrophil Count 8.2 X10^3/uL (2.0-7.7); Basophil# 0.01 X10^3/uL; Basophil% 0.1 % (0-1); Eosinophil# 0.02 X10^3/uL; Eosinophils% 0.2 % (0-5); Hematocrit 37.7 % (37-47); Hemoglobin 12.9 g/dL (12.0-15.0); Lymphocyte # 0.58 X10^3/ul (0.83-4.51); Lymphocyte % 6.4 % (19-41); Mean Corp Hgb Conc 34.2 g/dL (32-36); Mean Corpuscular Hgb 29.3 pg (27.0-32.0); Mean Corpuscular Volume 85.5 fL (81-99); Monocyte# 0.26 X10^3/uL; Monocyte% 2.9 % (0-10); NRBC Flagged by Analyzer 0 % (0-5); Neutrophil # 8.17 X10^3/uL (2.7-7.7); Neutrophil % 89.8 % (47-70); POSITIVE DIFFERENTIAL YES; Platelet Count 210 K/mm3 (150-450); RBC Distribution Width CV 12.5 % (11.6-14.6); Red Blood Count 4.41 M/mm3 (4.2-5.4); White Blood Count 9.1 K/mm3 (4.4-11.0)
[2021-07-18 07:26] LABS: Differential Indicated SCAN CRITERIA MET
[2021-07-18 07:47] LABS: ALB/GLOB Ratio 0.5 RATIO (0.9-2.4); AST(SGOT) 22 U/L (15-37); Alanine Aminotransfer ALT/SGPT 21 U/L (13-56); Albumin, Serum 2.5 g/dL (3.2-5.0); Alkaline Phosphatase 50 U/L (45-117); Anion Gap 5 (5-15); BUN 39 mg/dL (7-18); BUN/Creat Ratio 38.2 RATIO (10-20); Calcium,Total 9.8 mg/dL (8.5-10.1); Chloride 97 mmol/L (98-107); Creatinine, Serum 1.02 mg/dL (0.55-1.02); EST Glomerular Filtration Rate 60 mL/min (>60); Est Glom Filt Rate - Afr Amer 72 mL/min (>60); Estimated Creatinine Clearance 53.81 ml/min; Globulin 4.7 g/dL (2.2-4.2); Glucose 229 mg/dL (74-106); Potassium 4.3 mmol/L (3.5-5.1); Protein, Total 7.2 g/dL (6.4-8.2); Sodium Level 135 mmol/L (136-145)
[2021-07-18] MEDS: Ascorbic Acid 500 MG Tablet 1000 MG PO (08:17)
[2021-07-18] MEDS: Fenofibrate 145 MG Tablet PO (08:17)
[2021-07-18] MEDS: Enoxaparin 30 MG/0.3 ML Syringe SC ×2 (08:17→22:54)
[2021-07-18] MEDS: Pantoprazole Sodium 40 MG Tablet PO ×2 (08:17→22:50)
[2021-07-18] MEDS: Insulin Lispro 100 UNIT/ML INSULN.PEN 8 UNIT SC ×3 (08:18→16:21)
[2021-07-18] MEDS: Insulin Lispro 100 UNIT/ML INSULN.PEN SC ×4 (08:18→22:47)
[2021-07-18 08:26] LABS: Bedside Glucose 199 mg/dL (70-110)
[2021-07-18] MEDS: Furosemide 40 MG Tablet PO (10:13)
--- NOTE | 2021-07-18 10:17 | PN.CC_ITS ---
Assessment & Plan Assessment/Plan (1) Acute respiratory failure with hypoxia: (2) Pneumonia due to COVID-19 virus: PLAN: RECOMMENDATIONS: 1. Continue to wean FiO2 as tolerated for saturations greater than 90%. 2. Attempt daily walking oximetry. Potential discharge if tolerates 6 L or less 3. Completed Decadron. Baricitinib through 07/24/2021 4. Monitoring off antibiotics at this time. 5. Continue Lovenox as ordered along with baricitinib. No indication for discontinuation 6. Discontinue cough suppressant 7. If discharged, follow-up in our office in 4 to 6 weeks IMPRESSIONS: 1. Acute hypoxemic respiratory failure secondary to COVID-19 pneumonia The patient presented to the hospital with worsening dyspnea and hypoxemia. The patient's oxygenation status still remains quite tenuous. The patient remains on empiric antimicrobials along with Decadron, baricitinib and prophylactic Lovenox. The patient did receive remdesivir. CTA chest showed no evidence for PE. The patient will be continued on heated high flow oxygen as tolerated. FiO2 will be weaned to maintain saturations at or above 90%. We will challenge with diuretics for today with goal of -500 cc. 2. Acute kidney injury Stable today. Likely prerenal in etiology and related to diuretic utilization. IV Lasix will be dosed as possible given renal function. We will continue to monitor urine output for now. No current indication for renal replacement therapy. 3. Hypertension/hyperlipidemia/CKD/obesity/diabetes mellitus Complicates care, management, recovery and prognosis. Continue home medications as indicated, along with basal and sliding scale insulin coverage. This note was generated with [employer] dictation software. It may contain incorrect words, spelling, and punctuation that were not noted in checking the note before signing. Subjective Subjective Patient did well overnight. No acute issues were reported. Patient continues to report an intermittent productive cough. No pain or bleeding complications reported. Objective Data Objective Data Vital Signs: Vital Signs Temp Pulse Resp BP Pulse Ox 36.4 C L 63 18 101/61 92 07/18/21 08:00 07/18/21 08:00 07/18/21 08:00 07/18/21 08:00 07/18/21 10:01 Oxygen Flow Rate (L/min) 7 Oxygen Delivery Method Nasal Cannula Weight: 80.7 kg Body Mass Index (BMI) 32.5 Intake & Output: Intake and Output for Last 24 Hours 10/13/21 10/14/21 10/15/21 23:59 23:59 23:59 Intake Total 2420 / 2420 1000 / 1000 Output Total 2150 / 2150 Balance 270 / 270 1000 / 1000 Lab / Micro Data Result Diagrams: 07/18/21 07:10 07/18/21 07:10 Labs: Laboratory Results - last 24 hr 07/17/21 09:17: POC Glucose 214 H 07/17/21 11:42: POC Glucose 206 H 07/17/21 16:40: POC Glucose 315 H 07/17/21 22:33: POC Glucose 485 H* 07/18/21 07:10: WBC 9.1, RBC 4.41, Hgb 12.9, Hct 37.7, MCV 85.5, MCH 29.3, MCHC 34.2, RDW Std Deviation 39.0, RDW Coeff of Catina 12.5, Plt Count 210, MPV 11.0, Immature Gran % (Auto) 0.600, Neut % (Auto) 89.8 H, Lymph % (Auto) 6.4 L, Ward % (Auto) 2.9, Eos % (Auto) 0.2, Baso % (Auto) 0.1, Absolute Neuts (auto) 8.2 H, Absolute Lymphs (auto) 0.58 L, Nucleated RBC % 0, Differential Comment COMMENT 07/18/21 07:10: Sodium 135 L, Potassium 4.3, Chloride 97 L, Carbon Dioxide 33.0 H, Anion Gap 5, BUN 39 H, Creatinine 1.02, Estim Creat Clear Calc 53.81, Est GFR (MDRD) Af Amer 72, Est GFR (MDRD) Non-Af 60, BUN/Creatinine Ratio 38.2 H, Glucose 229 H, Calcium 9.8, Total Bilirubin 0.40, AST 22, ALT 21, Alkaline Phosphatase 50, Total Protein 7.2, Albumin 2.5 L, Globulin 4.7 H, Albumin/Globulin Ratio 0.5 L 07/18/21 08:11: POC Glucose 199 H Micro: Microbiology 07/11/21 16:18 Sputum, Expectorated/Coughed Gram Stain - Final 07/11/21 16:18 Sputum, Expectorated/Coughed Respiratory Culture - Final Mixed normal respiratory omid. No Streptococcus pneumoniae, beta-hemolytic Streptococcus or Staphylococcus aureus isolated. 07/14/21 18:15 Stool C. difficile DNA Amplification - Final 07/07/21 21:00 Sputum, Expectorated/Coughed Gram Stain - Final 07/07/21 21:00 Sputum, Expectorated/Coughed Respiratory Culture - Final 07/08/21 06:03 Urine, Clean Catch Legionella Antigen - Final 07/08/21 06:03 Urine, Clean Catch Streptococcus pneumoniae Antigen (M - Final 07/07/21 21:16 Mucosa - Nasopharyngeal Respiratory Panel (PCR) - Final Physical Exam Const alert and no apparent distress Constitutional Narrative: On nasal cannula. No conversational dyspnea General Appearance: cooperative Nutritional Appearance: obese HEENT normocephalic and head/scalp atraumatic Eyes PERRL and EOMs intact bilaterally Neck supple General: trachea midline Chest inspection of chest normal Chest: symmetrical chest wall rise; Negative for crepitus Resp Auscultation: diminished lung sounds; Negative for rales, rhonchi or wheezes Cardio regular rate, regular rhythm, S1 normal heart sound, S2 normal heart sound, no murmurs, no rub and no gallops GI normal to inspection, nondistended, normoactive bowel sounds Extremity no clubbing, cyanosis or edema Skin no rashes or lesions noted Neuro moves all extremities and no focal motor deficits Psych Mood & Affect: flat affect Charges/Coding Visit Charges Inpatient E&M: 81581 Subs Hosp L2
--- NOTE | 2021-07-18 10:28 | CASEMGMT ---
Pt was previously set up on 2L nc continuous thru [facility] ED so Lucero GREGORY aware for pt to be tested on 2L at rest and w/ exertion. CM to follow. Ariadne GREGORY CM
[2021-07-18 12:11] LABS: Bedside Glucose 217 mg/dL (70-110)
[2021-07-18] MEDS: BENZOCAINE/MENTHOL 1 LOZENGE MUCOUS MEM ×2 (14:00→22:53)
[2021-07-18 16:36] LABS: Bedside Glucose 208 mg/dL (70-110)
--- NOTE | 2021-07-18 19:34 | PN.HOSP_ITS ---
Subjective Subjective Patient was seen and examined today, according to nursing, patient required 12 L via nasal cannula on ambulating, her oxygen requirement at rest however is 3 L/min. I will reevaluate the patient tomorrow, for now we will continue present medical care. Objective Data Objective Data Vital Signs: Vital Signs Temp Pulse Resp BP Pulse Ox 98.0 F 68 16 101/59 L 94 07/18/21 16:25 07/18/21 16:25 07/18/21 16:25 07/18/21 16:25 07/18/21 16:25 Oxygen Flow Rate (L/min) [ 12 AMBULATING with Oxygen #1] Oxygen Flow Rate (L/min) [At 2 REST with Oxygen] Oxygen Flow Rate (L/min) 3 Oxygen Delivery Method Nasal Cannula Weight: 80.7 kg Body Mass Index (BMI) 32.5 Intake & Output: Intake and Output for Last 24 Hours 07/16/21 07/17/21 07/18/21 23:59 23:59 23:59 Intake Total 2420 / 2420 1000 / 1000 960 / 960 Output Total 2150 / 2150 Balance 270 / 270 1000 / 1000 960 / 960 Lab / Micro Data Result Diagrams: 07/18/21 07:10 07/18/21 07:10 Labs: Laboratory Results - last 24 hr 07/17/21 22:33: POC Glucose 485 H* 07/18/21 07:10: WBC 9.1, RBC 4.41, Hgb 12.9, Hct 37.7, MCV 85.5, MCH 29.3, MCHC 34.2, RDW Std Deviation 39.0, RDW Coeff of Catina 12.5, Plt Count 210, MPV 11.0, Immature Gran % (Auto) 0.600, Neut % (Auto) 89.8 H, Lymph % (Auto) 6.4 L, [place] % (Auto) 2.9, Eos % (Auto) 0.2, Baso % (Auto) 0.1, Absolute Neuts (auto) 8.2 H, Absolute Lymphs (auto) 0.58 L, Nucleated RBC % 0, Differential Comment COMMENT 07/18/21 07:10: Sodium 135 L, Potassium 4.3, Chloride 97 L, Carbon Dioxide 33.0 H, Anion Gap 5, BUN 39 H, Creatinine 1.02, Estim Creat Clear Calc 53.81, Est GFR (MDRD) Af Amer 72, Est GFR (MDRD) Non-Af 60, BUN/Creatinine Ratio 38.2 H, Glucose 229 H, Calcium 9.8, Total Bilirubin 0.40, AST 22, ALT 21, Alkaline Phosphatase 50, Total Protein 7.2, Albumin 2.5 L, Globulin 4.7 H, Albumin/Globulin Ratio 0.5 L 07/18/21 08:11: POC Glucose 199 H 07/18/21 12:04: POC Glucose 217 H 07/18/21 16:20: POC Glucose 208 H Micro: Microbiology 07/11/21 16:18 Sputum, Expectorated/Coughed Gram Stain - Final 07/11/21 16:18 Sputum, Expectorated/Coughed Respiratory Culture - Final Mixed normal respiratory omid. No Streptococcus pneumoniae, beta-hemolytic Streptococcus or Staphylococcus aureus isolated. 07/14/21 18:15 Stool C. difficile DNA Amplification - Final 07/07/21 21:00 Sputum, Expectorated/Coughed Gram Stain - Final 07/07/21 21:00 Sputum, Expectorated/Coughed Respiratory Culture - Final 07/08/21 06:03 Urine, Clean Catch Legionella Antigen - Final 07/08/21 06:03 Urine, Clean Catch Streptococcus pneumoniae Antigen (M - Final 07/07/21 21:16 Mucosa - Nasopharyngeal Respiratory Panel (PCR) - Final Physical Exam Const alert, oriented x3, no apparent distress and healthy appearing General Appearance: cooperative, well kempt and well developed Orientation / Consciousness: awake, oriented to person, oriented to place and oriented to time HEENT normocephalic and moist oral mucous membranes Eyes PERRL, EOMs intact bilaterally and conjunctivae normal Neck nuchal rigidity, supple, no JVD, thyroid normal and no carotid bruits General: trachea midline Resp normal respiratory effort and clear to auscultation bilaterally Auscultation: Negative for rales, rhonchi or wheezes Cardio regular rate, regular rhythm, no murmurs, no rub and no gallops GI normal to inspection, nondistended, normoactive bowel sounds, soft to palpation, non-tender and non-distended Extremity no clubbing, cyanosis or edema Skin no rashes or lesions noted General Skin Exam: no breakdown Neuro oriented x3, CN's II-XII intact bilaterally, no focal motor deficits and no sensory deficits noted Sensorium / Orientation: awake and alert Speech: speech normal Psych thought process normal and affect normal Assessment & Plan Assessment/Plan (1) COVID: (2) Acute respiratory failure with hypoxia: (3) Pneumonia due to COVID-19 virus: PLAN: 1. Acute hypoxemic respiratory failure secondary to COVID-19 pneumonia-continue to try and wean oxygen if possible, patient will be reevaluated tomorrow for home oxygen need #2 COVID-19 pneumonia, patient has received remdesivir, she remains on raffy citinib, Decadron, and prophylactic Lovenox. #3 essential hypertension #4 acute kidney injury-labs will be monitored, patient's kidney function is improved today #5 type 2 diabetes-blood sugars will be monitored, sliding scale insulin will be administered as needed, patient is currently on basal insulin and insulin with each meal. Charges/Coding Visit Charges Inpatient E&M: 79298 Subs Hosp L2
[2021-07-18] MEDS: Acetaminophen 325 MG Tablet 650 MG PO (22:49)
[2021-07-18] MEDS: Gabapentin 300 MG Capsule PO (22:53)
[2021-07-18] MEDS: Fluticasone 0.05% 1 SPRAY NASAL.SRY 2 SPRAY NASAL (22:53)
[2021-07-18] MEDS: Atorvastatin Calcium 20 MG Tablet PO (22:55)
[2021-07-18] MEDS: Menthol/Lanolin/Calamine/Znox 113 GM Tube 1 APPLIC TOPICAL (22:55)
[2021-07-18 23:10] LABS: Bedside Glucose 206 mg/dL (70-110)
[2021-07-19] VITALS (14 sets, daily range): BP systolic 102–113; BP diastolic 52–79; PULSE 65–89; RESP 12–18; TEMP 36.6–36.8; O2SAT 79–96
[2021-07-19] MEDS: proCHLORPERazine 10 MG/2 ML Vial 5 MG IV (04:49)
[2021-07-19] MEDS: Levothyroxine 175 MCG Tablet PO (06:48)
[2021-07-19] MEDS: Dicyclomine 10 MG Capsule PO ×4 (06:48→22:56)
[2021-07-19] MEDS: prednisoLONE eye drops (5 mL) 1 DROP OPTH.BTL 1 DRP RIGHT EYE ×5 (06:49→22:58)
[2021-07-19 07:11] LABS: Bedside Glucose 140 mg/dL (70-110)
[2021-07-19 08:48] LABS: Hematocrit 37.1 % (37-47); Hemoglobin 12.4 g/dL (12.0-15.0); Mean Corp Hgb Conc 33.4 g/dL (32-36); Mean Corpuscular Hgb 29.4 pg (27.0-32.0); Mean Corpuscular Volume 87.9 fL (81-99); Mean Platelet Vol. 11.3 fl (6.2-12.0); Platelet Count 219 K/mm3 (150-450); RBC Distribution Width CV 12.8 % (11.6-14.6); RBC Distribution Width SD 40.9 fl (35.1-43.9); Red Blood Count 4.22 M/mm3 (4.2-5.4); White Blood Count 10.4 K/mm3 (4.4-11.0)
--- NOTE | 2021-07-19 08:51 | PCM.PN.INT ---
Assessment & Plan Assessment/Plan (1) Acute respiratory failure with hypoxia: (2) Pneumonia due to COVID-19 virus: PLAN: RECOMMENDATIONS: 1. Continue to wean FiO2 as tolerated for saturations greater than 90%. 2. Attempt daily walking oximetry. Potential discharge if tolerates 6 L or less 3. Completed Decadron. Baricitinib through 07/24/2021, discontinue if able to be discharged 4. Monitoring off antibiotics at this time. 5. Continue Lovenox as ordered along with baricitinib. No indication for discontinuation 6. Discontinue cough suppressant 7. If discharged, follow-up in our office in 4 to 6 weeks 8. Okay to discontinue BiPAP and Airvo IMPRESSIONS: 1. Acute hypoxemic respiratory failure secondary to COVID-19 pneumonia The patient presented to the hospital with worsening dyspnea and hypoxemia. The patient's oxygenation status still remains quite tenuous. The patient remains on empiric antimicrobials along with Decadron, baricitinib and prophylactic Lovenox. The patient did receive remdesivir. CTA chest showed no evidence for PE. The patient will be continued on heated high flow oxygen as tolerated. Await morning labs. Possible diuretic therapy. Patient to have a walking oximetry today. If patient will tolerate ambulation on 6 L or less, potential discharge. Patient should follow-up in our office in 4 to 6 weeks. Baricitinib can be discontinued on discharge. 2. Acute kidney injury Stable today. Likely prerenal in etiology and related to diuretic utilization. IV Lasix will be dosed as possible given renal function. We will continue to monitor urine output for now. No current indication for renal replacement therapy. 3. Hypertension/hyperlipidemia/CKD/obesity/diabetes mellitus Complicates care, management, recovery and prognosis. Continue home medications as indicated, along with basal and sliding scale insulin coverage. This note was generated with [employer] dictation software. It may contain incorrect words, spelling, and punctuation that were not noted in checking the note before signing. Subjective Subjective Patient did well overnight. No acute issues are reported. Patient subjectively feels okay. Patient is reporting more nausea today compared to yesterday. Patient has been stable on nasal cannula for the last 24 hours. Objective Data Objective Data Vital Signs: Vital Signs Temp Pulse Resp BP Pulse Ox 36.6 C 67 16 110/54 L 96 07/19/21 04:30 07/19/21 04:30 07/19/21 04:30 07/19/21 04:30 07/19/21 07:45 Oxygen Flow Rate (L/min) [ 12 AMBULATING with Oxygen #1] Oxygen Flow Rate (L/min) [At 2 REST with Oxygen] Oxygen Flow Rate (L/min) 3 Oxygen Delivery Method Nasal Cannula Weight: 80.7 kg Body Mass Index (BMI) 32.5 Intake & Output: Intake and Output for Last 24 Hours 07/17/21 07/18/21 07/19/21 23:59 23:59 23:59 Intake Total 1000 / 1000 960 / 960 Balance 1000 / 1000 960 / 960 Lab / Micro Data Result Diagrams: 07/19/21 08:20 07/18/21 07:10 Labs: Laboratory Results - last 24 hr 07/18/21 12:04: POC Glucose 217 H 07/18/21 16:20: POC Glucose 208 H 07/18/21 22:45: POC Glucose 206 H 07/19/21 06:47: POC Glucose 140 H 07/19/21 08:20: WBC 10.4, RBC 4.22, Hgb 12.4, Hct 37.1, MCV 87.9, MCH 29.4, MCHC 33.4, RDW Std Deviation 40.9, RDW Coeff of Catina 12.8, Plt Count 219, MPV 11.3 Micro: Microbiology 07/11/21 16:18 Sputum, Expectorated/Coughed Gram Stain - Final 07/11/21 16:18 Sputum, Expectorated/Coughed Respiratory Culture - Final Mixed normal respiratory omid. No Streptococcus pneumoniae, beta-hemolytic Streptococcus or Staphylococcus aureus isolated. 07/14/21 18:15 Stool C. difficile DNA Amplification - Final 07/07/21 21:00 Sputum, Expectorated/Coughed Gram Stain - Final 07/07/21 21:00 Sputum, Expectorated/Coughed Respiratory Culture - Final 07/08/21 06:03 Urine, Clean Catch Legionella Antigen - Final 07/08/21 06:03 Urine, Clean Catch Streptococcus pneumoniae Antigen (M - Final 07/07/21 21:16 Mucosa - Nasopharyngeal Respiratory Panel (PCR) - Final Physical Exam Const alert and no apparent distress Constitutional Narrative: On nasal cannula. No conversational dyspnea General Appearance: cooperative Nutritional Appearance: obese HEENT normocephalic and head/scalp atraumatic Eyes PERRL and EOMs intact bilaterally Neck supple General: trachea midline Chest inspection of chest normal Chest: symmetrical chest wall rise; Negative for crepitus Resp Auscultation: diminished lung sounds; Negative for rales, rhonchi or wheezes Cardio regular rate, regular rhythm, S1 normal heart sound, S2 normal heart sound, no murmurs, no rub and no gallops GI normal to inspection, nondistended, normoactive bowel sounds Extremity no clubbing, cyanosis or edema Skin no rashes or lesions noted Neuro moves all extremities and no focal motor deficits Psych Mood & Affect: flat affect Charges/Coding Visit Charges Inpatient E&M: 19874 Subs Hosp L2
[2021-07-19 09:15] LABS: ALB/GLOB Ratio 0.5 RATIO (0.9-2.4); AST(SGOT) 26 U/L (15-37); Alanine Aminotransfer ALT/SGPT 24 U/L (13-56); Albumin, Serum 2.3 g/dL (3.2-5.0); Alkaline Phosphatase 50 U/L (45-117); Anion Gap 5 (5-15); BUN 47 mg/dL (7-18); BUN/Creat Ratio 39.5 RATIO (10-20); Calcium,Total 9.5 mg/dL (8.5-10.1); Chloride 99 mmol/L (98-107); Creatinine, Serum 1.19 mg/dL (0.55-1.02); EST Glomerular Filtration Rate 50 mL/min (>60); Est Glom Filt Rate - Afr Amer 60 mL/min (>60); Estimated Creatinine Clearance 46.13 ml/min; Globulin 4.5 g/dL (2.2-4.2); Glucose 145 mg/dL (74-106); Protein, Total 6.8 g/dL (6.4-8.2); Sodium Level 137 mmol/L (136-145)
[2021-07-19] MEDS: Insulin Lispro 100 UNIT/ML INSULN.PEN SC ×4 (11:27→23:00)
[2021-07-19] MEDS: Ascorbic Acid 500 MG Tablet 1000 MG PO (11:28)
[2021-07-19] MEDS: Fenofibrate 145 MG Tablet PO (11:29)
[2021-07-19] MEDS: Pantoprazole Sodium 40 MG Tablet PO ×2 (11:29→22:55)
[2021-07-19] MEDS: Enoxaparin 30 MG/0.3 ML Syringe SC ×2 (11:30→22:56)
[2021-07-19] MEDS: Insulin Lispro 100 UNIT/ML INSULN.PEN 8 UNIT SC ×3 (11:33→17:01)
[2021-07-19 11:41] LABS: Bedside Glucose 247 mg/dL (70-110)
[2021-07-19 14:36] LABS: Bedside Glucose 218 mg/dL (70-110)
[2021-07-19 17:10] LABS: Bedside Glucose 166 mg/dL (70-110)
--- NOTE | 2021-07-19 18:24 | PCM.PN.HOSP ---
Subjective Subjective Patient was seen and examined today, on ambulation she had a low pulse ox at 80% on 6 L. Patient has no complaints of any shortness of breath at rest, her pulse ox on 3 L at rest is adequate. Objective Data Objective Data Vital Signs: Vital Signs Temp Pulse Resp BP Pulse Ox 98.1 F 89 18 113/79 94 07/19/21 10:30 07/19/21 10:30 07/19/21 10:30 07/19/21 10:30 07/19/21 13:15 Oxygen Flow Rate (L/min) [ 6 AMBULATING with Oxygen #1] Oxygen Flow Rate (L/min) [At 3 REST with Oxygen] Oxygen Flow Rate (L/min) 3 Oxygen Delivery Method Nasal Cannula Weight: 80.7 kg Body Mass Index (BMI) 32.5 Intake & Output: Intake and Output for Last 24 Hours 07/17/21 07/18/21 07/19/21 23:59 23:59 23:59 Intake Total 1000 / 1000 960 / 960 Balance 1000 / 1000 960 / 960 Lab / Micro Data Result Diagrams: 07/19/21 08:20 07/19/21 08:20 Labs: Laboratory Results - last 24 hr 07/18/21 22:45: POC Glucose 206 H 07/19/21 06:47: POC Glucose 140 H 07/19/21 08:20: WBC 10.4, RBC 4.22, Hgb 12.4, Hct 37.1, MCV 87.9, MCH 29.4, MCHC 33.4, RDW Std Deviation 40.9, RDW Coeff of Catina 12.8, Plt Count 219, MPV 11.3 07/19/21 08:20: Sodium 137, Potassium 4.0, Chloride 99, Carbon Dioxide 33.0 H, Anion Gap 5, BUN 47 H, Creatinine 1.19 H, Estim Creat Clear Calc 46.13, Est GFR (MDRD) Af Amer 60, Est GFR (MDRD) Non-Af 50 L, BUN/Creatinine Ratio 39.5 H, Glucose 145 H, Calcium 9.5, Total Bilirubin 0.30, AST 26, ALT 24, Alkaline Phosphatase 50, Total Protein 6.8, Albumin 2.3 L, Globulin 4.5 H, Albumin/Globulin Ratio 0.5 L 07/19/21 11:26: POC Glucose 247 H 07/19/21 14:24: POC Glucose 218 H 07/19/21 17:00: POC Glucose 166 H Micro: Microbiology 07/11/21 16:18 Sputum, Expectorated/Coughed Gram Stain - Final 07/11/21 16:18 Sputum, Expectorated/Coughed Respiratory Culture - Final Mixed normal respiratory omid. No Streptococcus pneumoniae, beta-hemolytic Streptococcus or Staphylococcus aureus isolated. 07/14/21 18:15 Stool C. difficile DNA Amplification - Final 07/07/21 21:00 Sputum, Expectorated/Coughed Gram Stain - Final 07/07/21 21:00 Sputum, Expectorated/Coughed Respiratory Culture - Final 07/08/21 06:03 Urine, Clean Catch Legionella Antigen - Final 07/08/21 06:03 Urine, Clean Catch Streptococcus pneumoniae Antigen (M - Final 07/07/21 21:16 Mucosa - Nasopharyngeal Respiratory Panel (PCR) - Final Physical Exam Narrative alert, oriented x3, no apparent distress and healthy appearing General Appearance: cooperative, well kempt and well developed Orientation / Consciousness: awake, oriented to person, oriented to place and oriented to time HEENT normocephalic and moist oral mucous membranes Eyes PERRL, EOMs intact bilaterally and conjunctivae normal Neck nuchal rigidity, supple, no JVD, thyroid normal and no carotid bruits General: trachea midline Resp normal respiratory effort and clear to auscultation bilaterally Auscultation: Negative for rales, rhonchi or wheezes Cardio regular rate, regular rhythm, no murmurs, no rub and no gallops GI normal to inspection, nondistended, normoactive bowel sounds, soft to palpation, non-tender and non-distended Extremity no clubbing, cyanosis or edema Skin no rashes or lesions noted General Skin Exam: no breakdown Neuro oriented x3, CN's II-XII intact bilaterally, no focal motor deficits and no sensory deficits noted Sensorium / Orientation: awake and alert Speech: speech normal Psych thought process normal and affect normal Assessment & Plan Assessment/Plan (1) Acute respiratory failure with hypoxia: (2) COVID: (3) Pneumonia due to COVID-19 virus: PLAN: 1. Acute hypoxemic respiratory failure secondary to COVID-19 pneumonia-continue to try and wean oxygen if possible, patient will be reevaluated tomorrow for home oxygen need, currently her requirements on ambulation is too high to provide oxygen at home. #2 COVID-19 pneumonia, patient has received remdesivir, she remains on baricitinib, and prophylactic Lovenox. #3 essential hypertension #4 acute kidney injury-labs will be monitored #5 type 2 diabetes-blood sugars will be monitored, sliding scale insulin will be administered as needed, patient is currently on basal insulin and insulin with each meal. Charges/Coding Visit Charges Inpatient E&M: 55348 Subs Hosp L2
[2021-07-19] MEDS: Gabapentin 300 MG Capsule PO (22:55)
[2021-07-19] MEDS: Atorvastatin Calcium 20 MG Tablet PO (22:55)
[2021-07-19] MEDS: Fluticasone 0.05% 1 SPRAY NASAL.SRY 2 SPRAY NASAL (22:57)
[2021-07-19] MEDS: Menthol/Lanolin/Calamine/Znox 113 GM Tube 1 APPLIC TOPICAL (22:57)
[2021-07-19 23:11] LABS: Bedside Glucose 172 mg/dL (70-110)
[2021-07-20] VITALS (14 sets, daily range): BP systolic 103–129; BP diastolic 45–68; PULSE 69–87; RESP 16–18; TEMP 36.6–36.8; O2SAT 79–97
[2021-07-20] MEDS: Dicyclomine 10 MG Capsule PO ×4 (05:13→22:11)
[2021-07-20] MEDS: Levothyroxine 175 MCG Tablet PO (05:13)
[2021-07-20] MEDS: Acetaminophen 325 MG Tablet 650 MG PO (05:13)
[2021-07-20] MEDS: prednisoLONE eye drops (5 mL) 1 DROP OPTH.BTL 1 DRP RIGHT EYE ×4 (05:14→22:13)
[2021-07-20] MEDS: Insulin Lispro 100 UNIT/ML INSULN.PEN SC ×4 (07:40→22:14)
[2021-07-20] MEDS: Insulin Lispro 100 UNIT/ML INSULN.PEN 8 UNIT SC ×3 (07:41→16:07)
[2021-07-20 08:06] LABS: Bedside Glucose 207 mg/dL (70-110)
--- NOTE | 2021-07-20 08:22 | PN.CC_ITS ---
Assessment & Plan Assessment/Plan (1) Acute respiratory failure with hypoxia: (2) Pneumonia due to COVID-19 virus: PLAN: RECOMMENDATIONS: 1. Continue to wean FiO2 as tolerated for saturations greater than 90%. 2. Attempt daily walking oximetry. Potential discharge if tolerates 6 L or less 3. Completed Decadron. Baricitinib through 07/24/2021, discontinue if able to be discharged 4. Monitoring off antibiotics at this time. 5. Continue Lovenox as ordered along with baricitinib. No indication for discontinuation 6. Discontinue cough suppressant 7. If discharged, follow-up in our office in 4 to 6 weeks 8. Given relative stability. Will sign off from a critical care/pulmonary perspective IMPRESSIONS: 1. Acute hypoxemic respiratory failure secondary to COVID-19 pneumonia The patient presented to the hospital with worsening dyspnea and hypoxemia. The patient's oxygenation status still remains quite tenuous. The patient remains on empiric antimicrobials along with Decadron, baricitinib and prophylactic Lovenox. The patient did receive remdesivir. CTA chest showed no evidence for PE. The patient will be continued on nasal cannula as tolerated. Await morning labs. Possible diuretic therapy. Patient to have a walking oximetry today. If patient will tolerate ambulation on 6 L or less, potential discharge. Patient should follow-up in our office in 4 to 6 weeks. Baricitinib can be discontinued on discharge. 2. Acute kidney injury Stable today. Likely prerenal in etiology and related to diuretic utilization. IV Lasix will be dosed as possible given renal function. We will continue to monitor urine output for now. No current indication for renal replacement therapy. 3. Hypertension/hyperlipidemia/CKD/obesity/diabetes mellitus Complicates care, management, recovery and prognosis. Continue home medications as indicated, along with basal and sliding scale insulin coverage. This note was generated with [employer] dictation software. It may contain incorrect words, spelling, and punctuation that were not noted in checking the note before signing. Subjective Subjective Patient did well overnight. No acute issues were reported. Patient continues to require significant amounts of oxygen with ambulation. No new complaints reported. Objective Data Objective Data Vital Signs: Vital Signs Temp Pulse Resp BP Pulse Ox 36.8 C 77 16 103/45 L 79 07/20/21 07:43 07/20/21 07:43 07/20/21 07:43 07/20/21 07:43 07/20/21 07:55 Oxygen Flow Rate (L/min) [ 6 AMBULATING with Oxygen #1] Oxygen Flow Rate (L/min) [At 3 REST with Oxygen] Oxygen Flow Rate (L/min) 3 Oxygen Delivery Method Nasal Cannula Weight: 85.9 kg Body Mass Index (BMI) 32.5 Intake & Output: Intake and Output for Last 24 Hours 07/18/21 07/19/21 07/20/21 23:59 23:59 23:59 Intake Total 960 / 960 360 / 360 Balance 960 / 960 360 / 360 Lab / Micro Data Result Diagrams: 07/19/21 08:20 07/19/21 08:20 Labs: Laboratory Results - last 24 hr 07/19/21 08:20: WBC 10.4, RBC 4.22, Hgb 12.4, Hct 37.1, MCV 87.9, MCH 29.4, MCHC 33.4, RDW Std Deviation 40.9, RDW Coeff of Catina 12.8, Plt Count 219, MPV 11.3 07/19/21 08:20: Sodium 137, Potassium 4.0, Chloride 99, Carbon Dioxide 33.0 H, Anion Gap 5, BUN 47 H, Creatinine 1.19 H, Estim Creat Clear Calc 46.13, Est GFR (MDRD) Af Amer 60, Est GFR (MDRD) Non-Af 50 L, BUN/Creatinine Ratio 39.5 H, Glucose 145 H, Calcium 9.5, Total Bilirubin 0.30, AST 26, ALT 24, Alkaline Phosphatase 50, Total Protein 6.8, Albumin 2.3 L, Globulin 4.5 H, Albumin/Maricel bulin Ratio 0.5 L 07/19/21 11:26: POC Glucose 247 H 07/19/21 14:24: POC Glucose 218 H 07/19/21 17:00: POC Glucose 166 H 07/19/21 22:38: POC Glucose 172 H 07/20/21 07:38: POC Glucose 207 H Micro: Microbiology 07/11/21 16:18 Sputum, Expectorated/Coughed Gram Stain - Final 07/11/21 16:18 Sputum, Expectorated/Coughed Respiratory Culture - Final Mixed normal respiratory omid. No Streptococcus pneumoniae, beta-hemolytic Streptococcus or Staphylococcus aureus isolated. 07/14/21 18:15 Stool C. difficile DNA Amplification - Final 07/07/21 21:00 Sputum, Expectorated/Coughed Gram Stain - Final 07/07/21 21:00 Sputum, Expectorated/Coughed Respiratory Culture - Final 07/08/21 06:03 Urine, Clean Catch Legionella Antigen - Final 07/08/21 06:03 Urine, Clean Catch Streptococcus pneumoniae Antigen (M - Final 07/07/21 21:16 Mucosa - Nasopharyngeal Respiratory Panel (PCR) - Final Physical Exam Const alert and no apparent distress Constitutional Narrative: On nasal cannula. No conversational dyspnea General Appearance: cooperative Nutritional Appearance: obese HEENT normocephalic and head/scalp atraumatic Eyes PERRL and EOMs intact bilaterally Neck supple General: trachea midline Chest inspection of chest normal Chest: symmetrical chest wall rise; Negative for crepitus Resp Auscultation: diminished lung sounds; Negative for rales, rhonchi or wheezes Cardio regular rate, regular rhythm, S1 normal heart sound, S2 normal heart sound, no murmurs, no rub and no gallops GI normal to inspection, nondistended, normoactive bowel sounds Extremity no clubbing, cyanosis or edema Skin no rashes or lesions noted Neuro moves all extremities and no focal motor deficits Psych Mood & Affect: flat affect Charges/Coding Visit Charges Inpatient E&M: 12225 Subs Hosp L2
[2021-07-20 08:28] LABS: Anion Gap 6 (5-15); BUN 38 mg/dL (7-18); BUN/Creat Ratio 32.8 RATIO (10-20); Calcium,Total 9.9 mg/dL (8.5-10.1); Chloride 97 mmol/L (98-107); Creatinine, Serum 1.16 mg/dL (0.55-1.02); EST Glomerular Filtration Rate 51 mL/min (>60); Est Glom Filt Rate - Afr Amer 62 mL/min (>60); Estimated Creatinine Clearance 47.32 ml/min; Glucose 204 mg/dL (74-106); Potassium 4.5 mmol/L (3.5-5.1); Sodium Level 136 mmol/L (136-145)
[2021-07-20] MEDS: Menthol/Lanolin/Calamine/Znox 113 GM Tube 1 APPLIC TOPICAL ×2 (09:48→22:12)
[2021-07-20] MEDS: Pantoprazole Sodium 40 MG Tablet PO ×2 (09:49→22:11)
[2021-07-20] MEDS: Enoxaparin 30 MG/0.3 ML Syringe SC ×2 (09:49→22:11)
[2021-07-20] MEDS: Ascorbic Acid 500 MG Tablet 1000 MG PO (09:50)
[2021-07-20] MEDS: Fenofibrate 145 MG Tablet PO (09:50)
[2021-07-20 11:11] LABS: Bedside Glucose 290 mg/dL (70-110)
[2021-07-20 16:16] LABS: Bedside Glucose 265 mg/dL (70-110)
--- NOTE | 2021-07-20 16:19 | PCM.PN.HOSP ---
Subjective Subjective Patient was seen and examined today, she still requires high flow oxygen on ambulation, patient states she was not on oxygen prior to getting COVID-19. Patient does not complain of any shortness of breath at rest, she denies any fevers or chills Objective Data Objective Data Vital Signs: Vital Signs Temp Pulse Resp BP Pulse Ox 97.9 F 79 16 129/68 H 97 07/20/21 16:04 07/20/21 16:04 07/20/21 16:04 07/20/21 16:04 07/20/21 16:04 Oxygen Flow Rate (L/min) [ 6 AMBULATING with Oxygen #1] Oxygen Flow Rate (L/min) [At 3 REST with Oxygen] Oxygen Flow Rate (L/min) 3 Oxygen Delivery Method Nasal Cannula Weight: 85.9 kg Body Mass Index (BMI) 32.5 Intake & Output: Intake and Output for Last 24 Hours 07/18/21 07/19/21 07/20/21 23:59 23:59 23:59 Intake Total 960 / 960 360 / 360 520 / 520 Balance 960 / 960 360 / 360 520 / 520 Lab / Micro Data Result Diagrams: 07/19/21 08:20 07/20/21 07:50 Labs: Laboratory Results - last 24 hr 07/19/21 17:00: POC Glucose 166 H 07/19/21 22:38: POC Glucose 172 H 07/20/21 07:38: POC Glucose 207 H 07/20/21 07:50: Sodium 136, Potassium 4.5, Chloride 97 L, Carbon Dioxide 33.0 H, Anion Gap 6, BUN 38 H, Creatinine 1.16 H, Estim Creat Clear Calc 47.32, Est GFR (MDRD) Af Amer 62, Est GFR (MDRD) Non-Af 51 L, BUN/Creatinine Ratio 32.8 H, Glucose 204 H, Calcium 9.9 07/20/21 10:50: POC Glucose 290 H 07/20/21 16:02: POC Glucose 265 H Micro: Microbiology 07/11/21 16:18 Sputum, Expectorated/Coughed Gram Stain - Final 07/11/21 16:18 Sputum, Expectorated/Coughed Respiratory Culture - Final Mixed normal respiratory omid. No Streptococcus pneumoniae, beta-hemolytic Streptococcus or Staphylococcus aureus isolated. 07/14/21 18:15 Stool C. difficile DNA Amplification - Final 07/07/21 21:00 Sputum, Expectorated/Coughed Gram Stain - Final 07/07/21 21:00 Sputum, Expectorated/Coughed Respiratory Culture - Final 07/08/21 06:03 Urine, Clean Catch Legionella Antigen - Final 07/08/21 06:03 Urine, Clean Catch Streptococcus pneumoniae Antigen (M - Final 07/07/21 21:16 Mucosa - Nasopharyngeal Respiratory Panel (PCR) - Final Physical Exam Narrative alert, oriented x3, no apparent distress and healthy appearing General Appearance: cooperative, well kempt and well developed Orientation / Consciousness: awake, oriented to person, oriented to place and oriented to time HEENT normocephalic and moist oral mucous membranes Eyes PERRL, EOMs intact bilaterally and conjunctivae normal Neck nuchal rigidity, supple, no JVD, thyroid normal and no carotid bruits General: trachea midline Resp normal respiratory effort and clear to auscultation bilaterally Auscultation: Negative for rales, rhonchi or wheezes Cardio regular rate, regular rhythm, no murmurs, no rub and no gallops GI normal to inspection, nondistended, normoactive bowel sounds, soft to palpation, non-tender and non-distended Extremity no clubbing, cyanosis or edema Skin no rashes or lesions noted General Skin Exam: no breakdown Neuro oriented x3, CN's II-XII intact bilaterally, no focal motor deficits and no sensory deficits noted Sensorium / Orientation: awake and alert Speech: speech normal Psych thought process normal and affect normal Assessment & Plan Assessment/Plan (1) Acute respiratory failure with hypoxia: (2) COVID: (3) Pneumonia due to COVID-19 virus: PLAN: 1. Acute hypoxemic respiratory failure secondary to COVID-19 pneumonia-continue to try and wean oxygen if possible, patient will be reevaluated tomorrow for home oxygen need, currently her requirements on ambulation is too high to provide oxygen at home. #2 COVID-19 pneumonia, patient has received remdesivir, she remains on baricitinib, and prophylactic Lovenox. #3 essential hypertension #4 acute kidney injury-labs will be monitored #5 type 2 diabetes-blood sugars will be monitored, sliding scale insulin will be administered as needed, patient is currently on basal insulin and insulin with each meal. I will increase the patient's Lantus to 55 units subcu nightly Charges/Coding Visit Charges Inpatient E&M: 53445 Subs Hosp L2
[2021-07-20] MEDS: Gabapentin 300 MG Capsule PO (22:11)
[2021-07-20] MEDS: 0.9% Saline Lock 10 ML Syringe IV (22:11)
[2021-07-20] MEDS: Atorvastatin Calcium 20 MG Tablet PO (22:11)
[2021-07-20] MEDS: Fluticasone 0.05% 1 SPRAY NASAL.SRY 2 SPRAY NASAL (22:13)
[2021-07-20 22:30] LABS: Bedside Glucose 231 mg/dL (70-110)
--- NOTE | 2021-07-20 22:49 | CPS ---
pt refuses bipap for the night
[2021-07-21] VITALS (9 sets, daily range): BP systolic 98–121; BP diastolic 55–78; PULSE 64–80; RESP 14–16; TEMP 36.5–36.6; O2SAT 85–97
[2021-07-21] MEDS: Acetaminophen 325 MG Tablet 650 MG PO (01:23)
[2021-07-21] MEDS: Loperamide 2 MG Capsule PO (03:29)
[2021-07-21] MEDS: Dicyclomine 10 MG Capsule PO ×2 (05:55→11:24)
[2021-07-21] MEDS: Levothyroxine 175 MCG Tablet PO (05:55)
[2021-07-21] MEDS: prednisoLONE eye drops (5 mL) 1 DROP OPTH.BTL 1 DRP RIGHT EYE ×2 (05:55→11:25)
[2021-07-21] MEDS: Ascorbic Acid 500 MG Tablet 1000 MG PO (08:54)
[2021-07-21] MEDS: Pantoprazole Sodium 40 MG Tablet PO (08:54)
[2021-07-21] MEDS: Enoxaparin 30 MG/0.3 ML Syringe SC (08:54)
[2021-07-21] MEDS: Fenofibrate 145 MG Tablet PO (08:54)
[2021-07-21] MEDS: Insulin Lispro 100 UNIT/ML INSULN.PEN SC ×2 (08:55→11:26)
[2021-07-21] MEDS: Insulin Lispro 100 UNIT/ML INSULN.PEN 8 UNIT SC ×2 (08:56→11:26)
[2021-07-21] MEDS: Menthol/Lanolin/Calamine/Znox 113 GM Tube 1 APPLIC TOPICAL (08:59)
[2021-07-21 09:27] LABS: Bedside Glucose 210 mg/dL (70-110)
--- NOTE | 2021-07-21 10:42 | CASEMGMT ---
Pt qualifies for increased home oxygen 4L at rest and 8L w/ exertion and [place] [facility] [place] [facility]. [place] previously [place] 2L at rest and 4L w/ exertion and should have e-tanks at home but may need new concentrator to do 8L w/ exertion. [place] [facility] [place], Zan voices understanding and aware pt discharging today. Pt has been independent in room and states no further questions/concerns/needs with discharge. Pt has a pulse ox at home and states brought e-tank into hospital when came by squad. Ariadne RN CM
--- NOTE | 2021-07-21 11:14 | PCM.DC ---
Discharge Instructions Diet Discharge Diet: Low fat / Low cholesterol Activity Discharge Activity: Return to Normal Activity Dressing / Incision Call your doctor if you observe: Fever of 101 or Higher, Shortness of breath, Swelling in the ankles, Chest pain and Increased palpitations (irregular heartbeat) Follow Up Care Please Follow Up With: Rebeka Rabago MD When: 1-2 weeks Test Results: Test results from this visit will be discussed in further detail at your follow-up appointment, if applicable. Discharge Plan Admission Admit Date/Time: 07/07/21 16:34 Primary Reason for Your Visit: Covid 19 Attending Provider: Rajinder Funes Primary Care Provider: Rebeka Rabago Consulting Providers: Oziel Javier ; Kevin Mckeon ; Timmy Navarro ; Xena Busch NP Discharge Orders/Prescriptions Prescriptions: New insulin lispro [Humalog KwikPen Insulin] 100 unit/mL Insulin Pen 8 unit subcut TIDCM Qty: 0 RF: 0 Continued fluticasone propionate 1 SPRAY spray,suspension 2 spray NASAL QHS RF: 0 gabapentin 300 mg capsule 300 mg PO QHS RF: 0 estradiol 0.01 % (0.1 mg/gram) cream 3 g VAGINAL .2X/WEEK RF: 0 fenofibrate 160 mg tablet 160 mg PO DAILY RF: 0 Trulicity 1.5 mg/0.5 mL pen injector 1.5 mg SUBCUT JOHNSON RF: 0 levothyroxine 175 mcg tablet 175 mcg PO DAILY RF: 0 vitamin E 400 unit Capsule 400 unit PO DAILY RF: 0 omega-3 fatty acids-vitamin E 1,000 mg Capsule 1 cap PO DAILY RF: 0 meloxicam 15 mg tablet 15 mg PO DAILY PRN (Reason: Pain) RF: 0 ketorolac 0.5 % drops 1 drp ophthalmic (eye) Q6H RF: 0 prednisolone acetate 1 % drops,suspension 1 drp ophthalmic (eye) Q6H RF: 0 hydrochlorothiazide 12.5 mg capsule 12.5 mg PO DAILY RF: 0 lisinopril 2.5 mg tablet 2.5 mg PO DAILY RF: 0 dicyclomine 10 mg capsule 10 mg PO ACHS RF: 0 rosuvastatin 10 mg tablet 10 mg PO DAILY RF: 0 Tresiba FlexTouch U-100 100 unit/mL (3 mL) insulin pen 52 unit SUBCUT QHS RF: 0 ondansetron 4 mg tablet,disintegrating 4 mg PO Q8H PRN (Reason: nausea and vomiting) Qty: 10 RF: 0 Discontinued dexamethasone [Decadron] 6 mg tablet 6 mg PO DAILY RF: 0 insulin lispro [Humalog KwikPen Insulin] 100 unit/mL Insulin Pen 10 unit SUBCUT TID RF: 0 Referrals / Follow Up: Rebeka Rabago MD [Primary Care Provider] - Disposition Disposition (needs filled in before D/C Order can be placed): Home, Self Care
[2021-07-21 11:41] LABS: Bedside Glucose 181 mg/dL (70-110)
--- NOTE | 2021-07-21 11:57 | DS.PCM_ITS ---
Documented by User: BRANDI Grullon 07/21/21 12:09 Providers Date of Admission: 07/07/21 Primary Care Physician: Dr. Rebeka Rabago MD Consultations 07/11/21 05:41 Consult: [facility] Routine Consulting Provider: [facility] [place] Reason for Consult: acute hypoxic respiratory failure/covid 19 EMERGENT Consult: No MD Notified: Yes Date Notified: 07/11/21 Time Notified: 06:46 Method of Notification: Text 07/11/21 05:44 Consult: Infectious Disease Routine Consulting Provider: Oziel Javier Reason for Consult: COVID-19 ? Baricitinib EMERGENT Consult: No MD Notified: Yes Date Notified: 07/11/21 Time Notified: 06:43 Method of Notification: Text Reason For Visit: COVID, HYPOXIA Diagnosis Discharge Diagnosis (1) Acute respiratory failure with hypoxia: Status: Acute Code(s): J96.01 - Acute respiratory failure with hypoxia (2) COVID: Status: Acute Code(s): U07.1 - COVID-19 (3) Pneumonia due to COVID-19 virus: Status: Acute Code(s): U07.1 - COVID-19; J12.82 - Pneumonia due to coronavirus disease 2019 Medications at Discharge Home Medications fluticasone propionate 2 spray NASAL QHS 05/24/15 Trulicity 1.5 mg SUBCUT JOHNSON 03/25/21 estradiol 3 g VAGINAL .2X/WEEK 03/25/21 fenofibrate 160 mg PO DAILY 03/25/21 gabapentin 300 mg PO QHS 03/25/21 levothyroxine 175 mcg PO DAILY 03/25/21 omega-3 fatty acids-vitamin E 1 cap PO DAILY 03/25/21 vitamin E 400 unit PO DAILY 03/25/21 Tresiba FlexTouch U-100 52 unit SUBCUT QHS 07/06/21 dicyclomine 10 mg PO ACHS 07/06/21 hydrochlorothiazide 12.5 mg PO DAILY 07/06/21 ketorolac 1 drp OPHTHALMIC (EYE) Q6H 07/06/21 lisinopril 2.5 mg PO DAILY 07/06/21 meloxicam 15 mg PO DAILY PRN 07/06/21 ondansetron 4 mg PO Q8H PRN #10 tab 07/06/21 prednisolone acetate 1 drp OPHTHALMIC (EYE) Q6H 07/06/21 rosuvastatin 10 mg PO DAILY 07/06/21 insulin lispro [Humalog KwikPen Insulin] 8 unit SUBCUT TIDCM #0 ml 07/21/21 Hospital Course Operations None Procedures EKG Summary of Care Provided Minutes Spent on Discharge: 35 Hospital Course: Patient is a 55-year-old female who was admitted on 07/07/2021 with recent diagnosis of COVID-19. Patient was diagnosed upon admission with Covid pneumonia and an acute hypoxic respiratory failure. Patient received complete dose of Decadron, remdesivir as well as 7 days of baricitinib. Patient continues to need oxygen at this time, will be discontinued on nasal cannula oxygen 4 to 8 L at home. Patient tolerates 4 L nasal cannula oxygen at rest however with exertion patient needs up to 8 L nasal cannula oxygen. Physical Exam Const alert HEENT normocephalic and head/scalp atraumatic Eyes conjunctivae normal and no scleral icterus Neck supple General: trachea midline Resp normal respiratory effort, normal air movement and clear to auscultation bilaterally Effort and Inspection: able to speak in complete sentences and symmetric chest movement Cardio regular rate, regular rhythm, S1 normal heart sound, S2 normal heart sound and peripheral pulses 2+ throughout GI normal to inspection, nondistended, normoactive bowel sounds, soft to palpation and non-tender Extremity normal capillary refill and no clubbing, cyanosis or edema General Extremity: no tenderness to palpation of joints or extremities Skin skin turgor normal General Skin Exam: no breakdown Lesions: no lesions Rashes: no rashes Neuro no focal motor deficits and no sensory deficits noted Speech: speech normal Gait (Neuro): normal gait Motor Exam: Negative for general weakness Psych affect normal Appearance: appropriate Weight / BMI Weight Weight: 189 lb 6.033 oz Body Mass Index (BMI) 32.5 ABG / Lab / Microbiology Data Result Diagrams: 07/19/21 08:20 07/20/21 07:50 Laboratory: Laboratory Results - last 24 hr 07/20/21 16:02: POC Glucose 265 H 07/20/21 22:01: POC Glucose 231 H 07/21/21 08:47: POC Glucose 210 H 07/21/21 11:22: POC Glucose 181 H Microbiology: Microbiology 07/11/21 16:18 Sputum, Expectorated/Coughed Gram Stain - Final 07/11/21 16:18 Sputum, Expectorated/Coughed Respiratory Culture - Final Mixed normal respiratory omid. No Streptococcus pneumoniae, beta-hemolytic Streptococcus or Staphylococcus aureus isolated. 07/14/21 18:15 Stool C. difficile DNA Amplification - Final 07/07/21 21:00 Sputum, Expectorated/Coughed Gram Stain - Final 07/07/21 21:00 Sputum, Expectorated/Coughed Respiratory Culture - Final 07/08/21 06:03 Urine, Clean Catch Legionella Antigen - Final 07/08/21 06:03 Urine, Clean Catch Streptococcus pneumoniae Antigen (M - Final 07/07/21 21:16 Mucosa - Nasopharyngeal Respiratory Panel (PCR) - Final D/C Instructions Discharge Diet: Low fat / Low cholesterol Call your doctor if you observe: Fever of 101 or Higher, Shortness of breath, Swelling in the ankles, Chest pain and Increased palpitations (irregular heartbeat) Please Follow Up With: Rebeka Rabago MD When: 1-2 weeks Meaningful Use Info Meaningful Use Diagnoses (Choose all that apply): None applicable Discharge Plan Admission Admit Date/Time: 07/07/21 16:34 Primary Reason for Your Visit: Covid 19 Attending Provider: Rajinder Funes Primary Care Provider: Rebeka Rabago Consulting Providers: Oziel Javier ; Kevin Mckeon ; Timmy Navarro ; Xena Busch [employer] Discharge Orders/Prescriptions Prescriptions: New insulin lispro [Humalog KwikPen Insulin] 100 unit/mL Insulin Pen 8 unit subcut TIDCM Qty: 0 RF: 0 Continued fluticasone propionate 1 SPRAY spray,suspension 2 spray NASAL QHS RF: 0 gabapentin 300 mg capsule 300 mg PO QHS RF: 0 estradiol 0.01 % (0.1 mg/gram) cream 3 g VAGINAL .2X/WEEK RF: 0 fenofibrate 160 mg tablet 160 mg PO DAILY RF: 0 Trulicity 1.5 mg/0.5 mL pen injector 1.5 mg SUBCUT JOHNSON RF: 0 levothyroxine 175 mcg tablet 175 mcg PO DAILY RF: 0 vitamin E 400 unit Capsule 400 unit PO DAILY RF: 0 omega-3 fatty acids-vitamin E 1,000 mg Capsule 1 cap PO DAILY RF: 0 meloxicam 15 mg tablet 15 mg PO DAILY PRN (Reason: Pain) RF: 0 ketorolac 0.5 % drops 1 drp ophthalmic (eye) Q6H RF: 0 prednisolone acetate 1 % drops,suspension 1 drp ophthalmic (eye) Q6H RF: 0 hydrochlorothiazide 12.5 mg capsule 12.5 mg PO DAILY RF: 0 lisinopril 2.5 mg tablet 2.5 mg PO DAILY RF: 0 dicyclomine 10 mg capsule 10 mg PO ACHS RF: 0 rosuvastatin 10 mg tablet 10 mg PO DAILY RF: 0 Tresiba FlexTouch U-100 100 unit/mL (3 mL) insulin pen 52 unit SUBCUT QHS RF: 0 ondansetron 4 mg tablet,disintegrating 4 mg PO Q8H PRN (Reason: nausea and vomiting) Qty: 10 RF: 0 Discontinued dexamethasone [Decadron] 6 mg tablet 6 mg PO DAILY RF: 0 insulin lispro [Humalog KwikPen Insulin] 100 unit/mL Insulin Pen 10 unit SUBCUT TID RF: 0 Referrals / Follow Up: Rebeka Rabago MD [Primary Care Provider] - 08/04/21 10:00 am Disposition Disposition (needs filled in before D/C Order can be placed): Home, Self Care Documented by User: Dr. Rajinder Funes MD 07/21/21 14:40 Providers Date of Admission: 07/07/21 Reason For Visit: COVID, HYPOXIA Medications at Discharge Home Medications fluticasone propionate 2 spray NASAL QHS 05/24/15 Trulicity 1.5 mg SUBCUT JOHNSON 03/25/21 estradiol 3 g VAGINAL .2X/WEEK 03/25/21 fenofibrate 160 mg PO DAILY 03/25/21 gabapentin 300 mg PO QHS 03/25/21 levothyroxine 175 mcg PO DAILY 03/25/21 omega-3 fatty acids-vitamin E 1 cap PO DAILY 03/25/21 vitamin E 400 unit PO DAILY 03/25/21 Tresiba FlexTouch U-100 52 unit SUBCUT QHS 07/06/21 dicyclomine 10 mg PO ACHS 07/06/21 hydrochlorothiazide 12.5 mg PO DAILY 07/06/21 ketorolac 1 drp OPHTHALMIC (EYE) Q6H 07/06/21 lisinopril 2.5 mg PO DAILY 07/06/21 meloxicam 15 mg PO DAILY PRN 07/06/21 ondansetron 4 mg PO Q8H PRN #10 tab 07/06/21 prednisolone acetate 1 drp OPHTHALMIC (EYE) Q6H 07/06/21 rosuvastatin 10 mg PO DAILY 07/06/21 insulin lispro [Humalog KwikPen Insulin] 8 unit SUBCUT TIDCM #0 ml 07/21/21 Hospital Course Operations None Summary of Care Provided Minutes Spent on Discharge: 45 Hospital Course: This patient was seen in conjunction with Amara Owens NP-C . I have independently interviewed and examined the patient and reviewed pertinent historical, laboratory, and other data. Please refer to Amara Owens NP-Cnote for details of this patient's presentation, findings, and recommendations. I have reviewed Amara Owens NP-C note and concur with documented findings. In brief, patient i a 55-year-old lady who presented with progressive shortness of breath diagnosed with SARS-CoV-2 pneumonia admitted to monitored bed where patient was treated per protocol patient had a protracted stay still in the hospital for a total of 2 weeks. Her condition did stabilize and was discharged home after 14 days of hospitalization on home O2 Hospital course: As documented above ABG / Lab / Microbiology Data Result Diagrams: 07/19/21 08:20 07/20/21 07:50 Discharge Plan Admission Admit Date/Time: 07/07/21 16:34 Primary Reason for Your Visit: Covid 19 Attending Provider: Rajinder Funes Primary Care Provider: Rebeka Rabago Consulting Providers: Oziel Javier ; Kevin Mckeon ; Timmy Navarro ; Xena Busch NP Discharge Orders/Prescriptions Prescriptions: New insulin lispro [Humalog KwikPen Insulin] 100 unit/mL Insulin Pen 8 unit subcut TIDCM Qty: 0 RF: 0 Continued fluticasone propionate 1 SPRAY spray,suspension 2 spray NASAL QHS RF: 0 gabapentin 300 mg capsule 300 mg PO QHS RF: 0 estradiol 0.01 % (0.1 mg/gram) cream 3 g VAGINAL .2X/WEEK RF: 0 fenofibrate 160 mg tablet 160 mg PO DAILY RF: 0 Trulicity 1.5 mg/0.5 mL pen injector 1.5 mg SUBCUT JOHNSON RF: 0 levothyroxine 175 mcg tablet 175 mcg PO DAILY RF: 0 vitamin E 400 unit Capsule 400 unit PO DAILY RF: 0 omega-3 fatty acids-vitamin E 1,000 mg Capsule 1 cap PO DAILY RF: 0 meloxicam 15 mg tablet 15 mg PO DAILY PRN (Reason: Pain) RF: 0 ketorolac 0.5 % drops 1 drp ophthalmic (eye) Q6H RF: 0 prednisolone acetate 1 % drops,suspension 1 drp ophthalmic (eye) Q6H RF: 0 hydrochlorothiazide 12.5 mg capsule 12.5 mg PO DAILY RF: 0 lisinopril 2.5 mg tablet 2.5 mg PO DAILY RF: 0 dicyclomine 10 mg capsule 10 mg PO ACHS RF: 0 rosuvastatin 10 mg tablet 10 mg PO DAILY RF: 0 Tresiba FlexTouch U-100 100 unit/mL (3 mL) insulin pen 52 unit SUBCUT QHS RF: 0 ondansetron 4 mg tablet,disintegrating 4 mg PO Q8H PRN (Reason: nausea and vomiting) Qty: 10 RF: 0 Discontinued dexamethasone [Decadron] 6 mg tablet 6 mg PO DAILY RF: 0 insulin lispro [Humalog KwikPen Insulin] 100 unit/mL Insulin Pen 10 unit SUBCUT TID RF: 0 Referrals / Follow Up: Rebeka Rabago MD [Primary Care Provider] - 08/04/21 10:00 am Disposition Disposition (needs filled in before D/C Order can be placed): Home, Self Care Charges/Coding Multi Select Codes Visit Charges Visit Charges: 02224 Disch Hosp Hospital Course Consultations Consultations: Consultations 07/11/21 05:41 Consult: [facility] Routine Consulting Provider: [facility] [place] Reason for Consult: acute hypoxic respiratory failure/covid 19 EMERGENT Consult: No Notified: Yes Date Notified: 07/11/21 Time Notified: 06:46 Method of Notification: Text 07/11/21 05:44 Consult: Infectious Disease Routine Consulting Provider: Oziel Javier Reason for Consult: COVID-19 ? Baricitinib EMERGENT Consult: No Notified: Yes Date Notified: 07/11/21 Time Notified: 06:43 Method of Notification: Text Operations None
--- NOTE | 2021-07-22 14:07 | CASEMGMT ---
COLT ORTIZ Discharge Follow-up Phone Call: AIDA: Mayra Strata: 4 Call Date: 07/22/21 Discharge Date: 07/21/21 Time of Call: 1407 Duration: 1 min Admitting Diagnosis: covid COLT ORTIZ attempted to complete follow-up phone call after recent hospitalization. No answer, voice message left with return contact information
== END 2021-07-21 13:42 | disposition home or self-care (01) | DRG 137 ==
LOC: ED 15:24 → MS3 16:19 → PCU 17:11 → ICU 07-12 13:50 → PCU 07-17 08:49
PROVIDERS: Internal Medicine; Internal Medicine Critical Care Medicine; Admitting Provider Family Medicine; Emergency Provider Emergency Medicine; PCP Internal Medicine; Visit Provider Internal Medicine
DX: U07.1 COVID-19 (principal); J12.82 Pneumonia due to coronavirus disease 2019; J96.01 Acute respiratory failure with hypoxia; R19.7 Diarrhea, unspecified; E03.9 Hypothyroidism, unspecified; E11.22 Type 2 diabetes mellitus with diabetic chronic kidney disease; E66.9 Obesity, unspecified; Z68.32 Body mass index [BMI] 32.0-32.9, adult; K21.9 Gastro-esophageal reflux disease without esophagitis; N18.31 Chronic kidney disease, stage 3a; E11.649 Type 2 diabetes mellitus with hypoglycemia without coma; N17.9 Acute kidney failure, unspecified; T50.2X5A Adverse effect of carbonic-anhydrase inhibitors, benzothiadiazides and other diuretics, initial encounter; Y92.239 Unspecified place in hospital as the place of occurrence of the external cause; E78.00 Pure hypercholesterolemia, unspecified; E78.5 Hyperlipidemia, unspecified; I95.9 Hypotension, unspecified; E87.6 Hypokalemia; G43.909 Migraine, unspecified, not intractable, without status migrainosus; I12.9 Hypertensive chronic kidney disease with stage 1 through stage 4 chronic kidney disease, or unspecified chronic kidney disease; Z87.442 Personal history of urinary calculi; Z79.4 Long term (current) use of insulin; Z79.899 Other long term (current) drug therapy; Z87.891 Personal history of nicotine dependence
CPT/HCPCS: 36415; 36600; 71045; 71275; 80048; 80053; 80076; 82728; 82803; 82962; 83615; 83735; 83880; 84145; 84484; 85025; 85027; 85379; 86140; 87070; 87205; 87426; 87449; 87493; 87633; 93005; 94002; 94003; 94640; 96374; 96375; 97110; 97163; 97166; 97530; 97535; 99251; 99285; J7030; J7040; J7050; J7120; Q9967; A4216; G0463; J1940; J2405

== ENCOUNTER 2022-08-09 22:01 | Inpatient (IN) | payer MEDICAID, SELFPAY ==
[2022-08-09 22:02] VITALS: PULSE 104; RESP 17; TEMP 36.8; O2SAT 100; BMI 35.6
[2022-08-09 22:09] VITALS: O2SAT 99
--- NOTE | 2022-08-09 22:17 | EKG12_ITS ---
Test Reason : DYSRYTHMIA Blood Pressure : / mmHG Vent. Rate : 102 BPM Atrial Rate : 102 BPM P-R Int : 166 ms QRS Dur : 090 ms QT Int : 348 ms P-R-T Axes : 023 002 041 degrees QTc Int : 453 ms Sinus tachycardia Otherwise normal ECG Confirmed by JACQUIE DUNNE, XIMENA ([id number]), film and video editor ALICJA DE LA PAZ ([id number]) on 08/12/2022 11:36:17 AM Referred By: MICHELE Confirmed By:XIMENA DHILLON MD
--- NOTE | 2022-08-09 22:18 | EDS_ITS ---
HPI History of Present Illness Chief Complaint: General Illness Detail of Chief Complaint: Chest pain, arm pain, side pain Informant: patient Onset/Context/Timing Onset: Today Narrative Narrative: Patient presents with multiple complaints. She tells me that she developed chest tightness this morning that is been present throughout the day. She points to the lower sternal area and states that the pain is worse when she eats that it feels like things get stuck there. She does report some shortness of breath. She also complains of arm pain, but at the time of my exam is complaining because the blood pressure cuff is going off. She also complains of some left lateral abdominal pain just above the hip. No known injury or fall. [facility] Medical History Former tobacco use Hypercholesteremia Hypertension Hypothyroid Kidney stones Migraines Obesity Type 2 diabetes mellitus Home Medications fluticasone propionate 50 mcg/actuation nasal spray,suspension 2 spray QHS nasal spray 05/24/15 [History Last Taken 03/24/21] dulaglutide 1.5 mg/0.5 mL subcutaneous pen injector (Trulicity) 1.5 mg subcut JOHNSON dm 03/25/21 [History Last Taken 03/23/21] estradiol 0.01% (0.1 mg/gram) vaginal cream 3 g vaginal .2X/WEEK health maintenance 03/25/21 [History Last Taken Unknown] fenofibrate 160 mg tablet 160 mg PO DAILY cholesterol 03/25/21 [History Last Taken 03/24/21] gabapentin 300 mg capsule 300 mg PO QHS nerve pain 03/25/21 [History Last Taken 03/24/21] levothyroxine 175 mcg tablet 175 mcg PO DAILY thyroid 03/25/21 [History Last Taken 03/24/21] omega-3 fatty acids-vitamin E 1,000 mg capsule 1 cap PO DAILY supplement 03/25/21 [History Last Taken 03/24/21] vitamin E 268 mg (400 unit) capsule 400 unit PO DAILY supplement 03/25/21 [History Last Taken 03/24/21] dicyclomine 10 mg capsule 10 mg PO ACHS abdominal pain 07/06/21 [History Last Taken Unknown] hydrochlorothiazide 12.5 mg capsule 12.5 mg PO DAILY diuretic 07/06/21 [History Last Taken Unknown] insulin degludec 100 unit/mL (3 mL) subcutaneous pen (Tresiba FlexTouch U-100 insulin) 52 unit subcut QHS diabetes 07/06/21 [History Last Taken Unknown] ketorolac 0.5 % eye drops 1 drp ophthalmic (eye) Q6H eye 07/06/21 [History Last Taken Unknown] lisinopril 2.5 mg tablet 2.5 mg PO DAILY blood pressure 07/06/21 [History Last Taken Unknown] meloxicam 15 mg tablet 15 mg PO DAILY PRN Pain 07/06/21 [History Last Taken Unknown] ondansetron 4 mg disintegrating tablet 4 mg PO Q8H PRN nausea and vomiting #10 tabs 07/06/21 [Rx Last Taken Unknown] prednisolone acetate 1 % eye drops,suspension 1 drp ophthalmic (eye) Q6H eye 07/06/21 [History Last Taken Unknown] rosuvastatin 10 mg tablet 10 mg PO DAILY cholesterol 07/06/21 [History Last Taken Unknown] insulin lispro 100 unit/mL subcutaneous pen (Humalog KwikPen (U-100) Insulin) 8 unit (0.08 mL) subcut TIDCM #0 mL 07/21/21 [Rx Last Taken Unknown] Allergy/AdvReac Type Severity Reaction Status Date / Time metformin AdvReac Diarrhea Verified 08/09/22 22:07 oxycodone [From Percocet] AdvReac upset Verified 08/09/22 22:07 stomach/off balance Family History Mother Diabetes Father Diabetes Surgical History History of appendectomy Previous section Social History household members: none Smoking Status: Former smoker how long ago did patient quit smoking: Quit cigarette tobacco 4-6 years prior, 1 ppd since teenager until quit. alcohol intake: never substance use type: does not use ROS ROS ED Constitutional Constitutional ED: Denies chills or fever(s) Eyes Eyes: Denies change in vision or discharge from eye(s) ENT ENT ED: Denies discharge from eye(s), rhinorrhea or sore throat Cardiovascular Cardiovascular: Reports chest pain; Denies palpitations Respiratory/Chest Respiratory/Chest: Reports cough and dyspnea Gastrointestinal Gastrointestinal: Reports abdominal pain; Denies diarrhea, nausea or vomiting Genitourinary Genitourinary ED: Denies dysuria Musculoskeletal Musculoskeletal: Reports extremity pain; Denies back pain Integumentary Denies Abrasions or rash Neurologic Neurologic: Denies headache(s) or weakness Allergic/Immunologic Allergic/Immunologic ED: Denies lip swelling or urticaria EXAM Physical Exam Const Vital Signs: 08/09/22 22:02 08/09/22 22:09 08/09/22 22:44 Temperature 98.3 F Temperature Source Temporal Pulse Rate 104 H Respiratory Rate 17 Respiratory Effort Normal Respiratory Pattern Normal Blood Pressure Blood Pressure Mean Pulse Ox 100 99 Oxygen Delivery Method Venturi Mask Nasal Cannula Oxygen Flow Rate (L/min) 4 2 08/10/22 00:55 Temperature Temperature Source Pulse Rate 116 H Respiratory Rate 18 Respiratory Effort Respiratory Pattern Blood Pressure 148/83 H Blood Pressure Mean 104 Pulse Ox 92 Oxygen Delivery Method Nasal Cannula Oxygen Flow Rate (L/min) 2 Positive well nourished and well developed General Appearance ED: well developed HEENT Reports normocephalic and head/scalp atraumatic Eyes PERRL and EOMs intact bilaterally Neck supple Chest Wall inspection of chest normal and palpation of chest normal Resp normal respiratory effort and clear to auscultation bilaterally Cardio regular rate and regular rhythm GI non-tender Auscultation: hypoactive bowel sounds Palpation: soft Extremity normal to inspection Neuro oriented x3 and no sensory deficits noted Sensorium / Orientation: alert Motor Exam: strength 5/5 throughout Psych mental status grossly normal Skin no rashes or lesions noted MDM MDM MDM Narrative Medical decision making narrative: EKG, chest x-ray, lab work obtained. Patient given IV fluids. Lab Data Attestation: I reviewed the patient's lab results. Labs: Laboratory Results - last 24 hr 08/09/22 08/09/22 08/09/22 22:46 22:46 22:46 WBC 12.7 H RBC 4.11 L Hgb 11.6 L Hct 36.7 L MCV 89.3 MCH 28.2 MCHC 31.6 L RDW Std Deviation 42.9 RDW Coeff of Catina 13.2 Plt Count 134 L MPV 10.7 Immature Gran % (Auto) 0.300 Neut % (Auto) 81.4 H Lymph % (Auto) 10.3 L Sully % (Auto) 6.2 Eos % (Auto) 1.7 Baso % (Auto) 0.1 Absolute Neuts (auto) 10.3 H Absolute Lymphs (auto) 1.31 Nucleated RBC % 0 D-Dimer Quant (PE/DVT) 1.32 H* Sodium 138 Potassium 4.8 Chloride 101 Carbon Dioxide 28.0 Anion Gap 9 BUN 27 H Creatinine 1.13 H Estim Creat Clear Calc 48.00 Est GFR (MDRD) Af Amer 64 Est GFR (MDRD) Non-Af 53 L BUN/Creatinine Ratio 23.9 H Glucose 180 H Calcium 8.9 Total Bilirubin 0.40 Direct Bilirubin 0.08 AST 30 ALT 32 Alkaline Phosphatase 63 Troponin I High Sens 21 Total Protein 7.7 Albumin 3.6 Globulin 4.1 Lipase 521 H Urine Color Urine Clarity Urine pH Ur Specific [place] Urine Protein Urine Glucose (UA) Urine Ketones Urine Occult Blood Urine Nitrite Urine Bilirubin Urine Urobilinogen Ur Leukocyte Esterase Urine RBC Urine WBC Ur Squamous Epith Cells Urine Bacteria Urine Mucus 08/10/22 00:45 WBC RBC Hgb Hct MCV MCH MCHC RDW Std Deviation RDW Coeff of Catina Plt Count MPV Immature Gran % (Auto) Neut % (Auto) Lymph % (Auto) Sully % (Auto) Eos % (Auto) Baso % (Auto) Absolute Neuts (auto) Absolute Lymphs (auto) Nucleated RBC % D-Dimer Quant (PE/DVT) Sodium Potassium Chloride Carbon Dioxide Anion Gap BUN Creatinine Estim Creat Clear Calc Est GFR (MDRD) Af Amer Est GFR (MDRD) Non-Af BUN/Creatinine Ratio Glucose Calcium Total Bilirubin Direct Bilirubin AST ALT Alkaline Phosphatase Troponin I High Sens Total Protein Albumin Globulin Lipase Urine Color Yellow Urine Clarity Sl. Cloudy Urine pH 7.0 Ur Specific [place] 1.010 Urine Protein 100 H Urine Glucose (UA) 1000 H Urine Ketones Negative Urine Occult Blood 150 H Urine Nitrite Positive H Urine Bilirubin Negative Urine Urobilinogen Normal Ur Leukocyte Esterase 500 H Urine RBC 10-25 SEEN Urine WBC >100 SEEN Ur Squamous Epith Cells 0 SEEN Urine Bacteria 3+ Urine Mucus 0 SEEN Radiography Chest X-Ray - ED: 1 View, Read by ED Physician and Chronic Changes Diagnostic Testing: Clinical Impression(s) from Imaging Studies Chest X-Ray 08/09/22 22:39 IMPRESSION: Poor inspiration with some bibasilar atelectasis. Electronically Signed: Man Staton MD at 23:01 EST , Chest CTA 08/09/22 23:14 IMPRESSION: Study limited by suboptimal opacification of the pulmonary arteries. No large or central pulmonary emboli. More distal pulmonary emboli cannot be excluded. Cardiomegaly with pulmonary findings of mild pulmonary edema versus infection. Small pericardial effusion. Electronically Signed: Kwame Herron MD at 0:22 EST , EKG Initial EKG: Attestation: I personally reviewed and interpreted this EKG as follows: Interpretation: Sinus Tachycardia (Sinus tach at 102 with no acute ischemia.) Treatment and Re-Evaluation Narrative: CBC reveals a white count of 12.7 with 81% neutrophils. Chemistry studies unremarkable other than a glucose of 180. D-dimer elevated at 1.32. LFTs normal. Lipase elevated at 521. Troponin is normal at 21. Cramer catheter was placed as patient was unable to give a urine stable but felt as if she needed to urinate. 1 liter of urine was drained from her bladder. She does have evidence of UTI with 3+ bacteria, positive nitrites, greater than 100 white cells. CTA of the chest was obtained given patient's elevated D-dimer. This does not reveal evidence of pulmonary embolism. Patient is given Rocephin for her UTI and urine culture is sent. Patient discussed with hospitalist regarding admission. Discharge Plan Triage Chief Complaint: General Illness ED Provider: Brooke Sainz Dx/Rx/DC Orders Clinical Impression: UTI (urinary tract infection), Urinary retention, Elevated lipase Prescriptions: No Action fluticasone propionate 1 SPRAY spray,suspension 2 spray NASAL QHS Label Comments: allergies gabapentin 300 mg capsule 300 mg PO QHS Label Comments: take 1 capsule by mouth at bedtime estradiol 0.01 % (0.1 mg/gram) cream 3 g VAGINAL .2X/WEEK Label Comments: insert 3 grams vaginally two times a week fenofibrate 160 mg tablet 160 mg PO DAILY Label Comments: take 1 tablet by mouth once daily Trulicity 1.5 mg/0.5 mL pen injector 1.5 mg SUBCUT JOHNSON Label Comments: inject 0.5 milliliters ( 1 AND 1/2 milligrams ) subcutaneously every week levothyroxine 175 mcg tablet 175 mcg PO DAILY Label Comments: take 1 tablet by mouth once daily ON AN EMPTY STOMACH (FOR THYROID) vitamin E 400 unit Capsule 400 unit PO DAILY omega-3 fatty acids-vitamin E 1,000 mg Capsule 1 cap PO DAILY meloxicam 15 mg tablet 15 mg PO DAILY PRN (Reason: Pain) Label Comments: take 1 tablet by mouth once daily if needed for pain with food ketorolac 0.5 % drops 1 drp ophthalmic (eye) Q6H Label Comments: instill 1 drop into left eye four times a day prednisolone acetate 1 % drops,suspension 1 drp ophthalmic (eye) Q6H Label Comments: instill 1 drop into right eye four times a day hydrochlorothiazide 12.5 mg capsule 12.5 mg PO DAILY Label Comments: take 1 capsule by mouth once daily lisinopril 2.5 mg tablet 2.5 mg PO DAILY Label Comments: take 1 tablet by mouth once daily dicyclomine 10 mg capsule 10 mg PO ACHS Label Comments: take 1 capsule by mouth four times a day before meals and at bedtime FOR ABDOMINAL PAIN rosuvastatin 10 mg tablet 10 mg PO DAILY Label Comments: take 1 tablet by mouth at bedtime insulin degludec [Tresiba FlexTouch U-100] 100 unit/mL (3 mL) insulin pen 52 unit SUBCUT QHS Label Comments: INJECT 50 UNITS SUBCUTANEOUSLY DAILY AT BEDTIME ondansetron 4 mg tablet,disintegrating 4 mg PO Q8H PRN (Reason: nausea and vomiting) Qty: 10 0RF insulin lispro [Humalog KwikPen Insulin] 100 unit/mL Insulin Pen 8 unit subcut TIDCM Qty: 0 0RF Primary Care Provider: Rebeka Rabago Referrals: Rebeka Rabago MD [Primary Care Provider] - Disposition Disposition: Acute Care [facility]
--- NOTE | 2022-08-09 22:39 | RAD_ITS ---
STUDY: X-RAY CHEST REASON FOR EXAM: Female, 56 years old. chest pain TECHNIQUE: Single AP portable view of the chest. COMPARISON: 07/10/2021 FINDINGS: Poor inspiration with some bibasilar atelectasis. There is no demonstrated pleural abnormality. There is moderate cardiac enlargement. Normal mediastinum and yevgeniy. Normal visualized pulmonary arteries. Normal visualized aortic arch and descending thoracic aorta. Normal visualized thoracic spine. Normal visualized ribs, clavicles, and shoulders. There is no demonstrated abnormality of the visualized soft tissue structures of the upper abdomen. RAD/Chest 1 View (Portable) IMPRESSION: Poor inspiration with some bibasilar atelectasis. Electronically Signed: Man Staton MD at 23:01 EST ,
[2022-08-09 22:50] LABS: Absolute Lymphocyte Count 1.31 X10^3/uL (0.83-4.51); Absolute Neutrophil Count 10.3 X10^3/uL (2.0-7.7); Basophil# 0.01 X10^3/uL; Basophil% 0.1 % (0-1); Eosinophil# 0.21 X10^3/uL; Eosinophils% 1.7 % (0-5); Hematocrit 36.7 % (37-47); Hemoglobin 11.6 g/dL (12.0-15.0); Lymphocyte # 1.31 X10^3/ul (0.83-4.51); Lymphocyte % 10.3 % (19-41); Mean Corp Hgb Conc 31.6 g/dL (32-36); Mean Corpuscular Hgb 28.2 pg (27.0-32.0); Mean Corpuscular Volume 89.3 fL (81-99); Mean Platelet Vol. 10.7 fl (6.2-12.0); Monocyte# 0.79 X10^3/uL; Monocyte% 6.2 % (0-10); NRBC Flagged by Analyzer 0 % (0-5); Neutrophil # 10.31 X10^3/uL (2.7-7.7); Neutrophil % 81.4 % (47-70); Platelet Count 134 K/mm3 (150-450); RBC Distribution Width CV 13.2 % (11.6-14.6); RBC Distribution Width SD 42.9 fl (35.1-43.9); Red Blood Count 4.11 M/mm3 (4.2-5.4); White Blood Count 12.7 K/mm3 (4.4-11.0)
[2022-08-09] MEDS: 0.9% Normal Saline 1,000 ML 150 ML IV (22:51)
[2022-08-09 23:07] LABS: D-Dimer Quantitative (DVT/PE) 1.32 FEU/ug/m (0.27-0.49)
[2022-08-09 23:12] LABS: AST(SGOT) 30 U/L (15-37); Alanine Aminotransfer ALT/SGPT 32 U/L (13-56); Albumin, Serum 3.6 g/dL (3.2-5.0); Alkaline Phosphatase 63 U/L (45-117); Anion Gap 9 (5-15); BUN 27 mg/dL (7-18); BUN/Creat Ratio 23.9 RATIO (10-20); Bilirubin, Direct 0.08 mg/dL (0.00-0.30); Calcium,Total 8.9 mg/dL (8.5-10.1); Chloride 101 mmol/L (98-107); Creatinine, Serum 1.13 mg/dL (0.55-1.02); EST Glomerular Filtration Rate 53 mL/min (>60); Est Glom Filt Rate - Afr Amer 64 mL/min (>60); Globulin 4.1 g/dL (2.2-4.2); Glucose 180 mg/dL (74-106); Lipase 521 U/L (73-393); Potassium 4.8 mmol/L (3.5-5.1); Protein, Total 7.7 g/dL (6.4-8.2); Sodium Level 138 mmol/L (136-145); Troponin-I HS 21 pg/mL (3.0-54.0)
--- NOTE | 2022-08-09 23:14 | CT_ITS ---
STUDY: CTA CHEST REASON FOR EXAM: Female, 56 years old. Chest pain, elevated d-dimer RADIATION DOSAGE (If Supplied By Facility): CTDIvol = ( 12.49 ) mGy, DLP = ( 503.96 ) mGycm TECHNIQUE: The examination was performed with the intravenous administration of 100mL Isovue-370. Post-processing of the angiographic images was performed, with multiplanar reformation and 3D reconstruction. Individualized dose optimization techniques were used for this CT. COMPARISON: 07/07/2021 FINDINGS: There is limited enhancement of the main pulmonary artery and right and left pulmonary arteries. No large or central pulmonary emboli. Emboli in the distal segmental or subsegmental pulmonary arteries cannot be excluded. Mild ectasia ascending aorta. There is no demonstrated aortic dissection. Cardiomegaly. Small pericardial effusion, maximal thickness 9 mm. Normal mediastinum. Normal hilar regions. Normal visualized trachea and bronchi. Small pneumatocele left lung base. Diffuse peripheral septal thickening. Scattered bibasilar groundglass opacities. No consolidations. Large calcified granuloma right lower lobe. Trace bilateral pleural effusions. Normal chest wall structures. No acute or aggressive abnormality. Splenomegaly. No acute findings. CT/CTA Chest W/WO Contrast IMPRESSION: Study limited by suboptimal opacification of the pulmonary arteries. No large or central pulmonary emboli. More distal pulmonary emboli cannot be excluded. Cardiomegaly with pulmonary findings of mild pulmonary edema versus infection. Small pericardial effusion. Electronically Signed: Kwame Herron MD at 0:22 EST ,
[2022-08-10] VITALS (17 sets, daily range): BP systolic 80–148; BP diastolic 33–83; PULSE 75–116; RESP 16–20; TEMP 36.6–38.6; O2SAT 92–99; BMI 35.4
[2022-08-10 00:55] LABS: Mucous, Urine 0 SEEN /hpf (<or=2+); Squamous Epithelial Cells - UA 0 SEEN /hpf (5-10)
[2022-08-10 00:56] LABS: Color, Urine Yellow (Yellow); Glucose, Dipstick 1000 mg/dl (Normal); Ketone-Dipstick Negative (Negative); Leukocyte Esterase-Dipstick 500 /ul (Negative); Nitrite-Dipstick Positive (Negative); Occult Blood-Urine 150 /ul (Negative); Protein-Dipstick 100 mg/dl (Negative); Urine Bilirubin Dipstick Negative (Negative); Urine Clarity Sl. Cloudy (Clear); Urine Urobilinogen Normal (Normal)
[2022-08-10 01:05] LABS: White Blood Cells >100 SEEN /hpf (0-5)
[2022-08-10 01:06] LABS: Bacteria 3+ /hpf (None Seen); Red Blood Cells-Urine 10-25 SEEN /hpf (0-5)
[2022-08-10] MEDS: Ondansetron 4 MG/2 ML Vial IV (01:30)
[2022-08-10] MEDS: Ceftriaxone 1 GM/50 ML BAG IV ×2 (01:30→22:03)
[2022-08-10] MEDS: fentaNYL 100 MCG/2 ML Ampul 25 MCG IV (01:30)
--- NOTE | 2022-08-10 01:30 | HP.PCM.HOS_ITS ---
HPI - General General Date of Admission: 08/10/22 Date of Service: 08/10/22 Chief Complaint: Malaise HPI Narrative BETTY AGARWAL, is a 56 F who presented to the emergency department at [facility] on 08/10/2022 with multiple complaints. Patient reports that she is not been feeling well for approximately a week indicating she has had some intermittent chest tightness today, pain in the epigastrium and right upper quadrant when she eats (she states she feels something gets stuck there), shortness of breath, lower abdominal pain, chills, fever, and generalized weakness. Patient denies any nausea or vomiting, she states her bowel movements are normal, she denies any focal tingling numbness or weakness. She denies any cough or sputum production, and she states that she has had no real sick contacts that she is aware of. She also reported that she was having some urinary retention and significant pain with urination. She was able to urinate in the emergency department and was bladder scanned and found to have a sign ificant amount of fluid in her urine therefore Cramer was placed and a liter was returned. Patient is overall a fairly poor historian. She does state that she has been on oxygen since she had COVID about a year ago. Upon review of documentation it looks like she had an extensive hospitalization at that time. Upon presentation her temperature was 98.3 however she did develop a T-max of 101.5, heart rate was 104, respiratory rate was 17, pulse ox was 92 to 99% on nasal cannula at 2 L. CBC shows a leukocytosis with a white count of 12.7, mild anemia 11.6 and a thrombocytopenia at 134,000, she has a left shift. Chemistry panel demonstrates a mild chronic stable creatinine elevation indicating CKD stage IIa, her glucose was 180 LFTs are unremarkable, initial troponin was 21 and she had a lipase that was 521. Her urine appears markedly infected having positive nitrates, blood, leukoesterase, white cells with greater than 100 per high-power field and 3+ bacteria. A D-dimer was obtained and found to be mildly elevated at 1.32 therefore a CTA of her chest was performed which was negative for pulmonary embolism. It also demonstrated some cardiomegaly with possible mild pulmonary edema versus infection and a small pericardial effusion. I suspect the scattered bibasilar groundglass opacities are related to her previous COVID-19 infection. In the emergency department Rocephin was initiated after her UA came back suggestive infection and she was given IV fluids. [facility] Medical History (Updated 08/10/22 @ 01:[address] Justine Trent DO) Chronic respiratory failure with hypoxia Former tobacco use Hypercholesteremia Hypertension Hypothyroid Kidney stones Migraines Obesity Type 2 diabetes mellitus Home Medications fluticasone propionate 50 mcg/actuation nasal spray,suspension 2 spray QHS nasal spray 05/24/15 [History Last Taken 03/24/21] dulaglutide 1.5 mg/0.5 mL subcutaneous pen injector (Trulicity) 1.5 mg subcut JOHNSON dm 03/25/21 [History Last Taken 03/23/21] estradiol 0.01% (0.1 mg/gram) vaginal cream 3 g vaginal .2X/WEEK health maintenance 03/25/21 [History Last Taken Unknown] fenofibrate 160 mg tablet 160 mg PO DAILY cholesterol 03/25/21 [History Last Taken 03/24/21] gabapentin 300 mg capsule 300 mg PO QHS nerve pain 03/25/21 [History Last Taken 03/24/21] levothyroxine 175 mcg tablet 175 mcg PO DAILY thyroid 03/25/21 [History Last Taken 03/24/21] omega-3 fatty acids-vitamin E 1,000 mg capsule 1 cap PO DAILY supplement 03/25/21 [History Last Taken 03/24/21] vitamin E 268 mg (400 unit) capsule 400 unit PO DAILY supplement 03/25/21 [History Last Taken 03/24/21] dicyclomine 10 mg capsule 10 mg PO ACHS abdominal pain 07/06/21 [History Last Taken Unknown] hydrochlorothiazide 12.5 mg capsule 12.5 mg PO DAILY diuretic 07/06/21 [History Last Taken Unknown] insulin degludec 100 unit/mL (3 mL) subcutaneous pen (Tresiba FlexTouch U-100 insulin) 52 unit subcut QHS diabetes 07/06/21 [History Last Taken Unknown] ketorolac 0.5 % eye drops 1 drp ophthalmic (eye) Q6H eye 07/06/21 [History Last Taken Unknown] lisinopril 2.5 mg tablet 2.5 mg PO DAILY blood pressure 07/06/21 [History Last Taken Unknown] meloxicam 15 mg tablet 15 mg PO DAILY PRN Pain 07/06/21 [History Last Taken Unknown] ondansetron 4 mg disintegrating tablet 4 mg PO Q8H PRN nausea and vomiting #10 tabs 07/06/21 [Rx Last Taken Unknown] prednisolone acetate 1 % eye drops,suspension 1 drp ophthalmic (eye) Q6H eye 07/06/21 [History Last Taken Unknown] rosuvastatin 10 mg tablet 10 mg PO DAILY cholesterol 07/06/21 [History Last Taken Unknown] insulin lispro 100 unit/mL subcutaneous pen (Humalog KwikPen (U-100) Insulin) 8 unit (0.08 mL) subcut TIDCM #0 mL 07/21/21 [Rx Last Taken Unknown] Allergy/AdvReac Type Severity Reaction Status Date / Time metformin AdvReac Diarrhea Verified 08/09/22 22:07 oxycodone [From Percocet] AdvReac upset Verified 08/09/22 22:07 stomach/off balance Family History Mother Diabetes Father Diabetes Surgical History History of appendectomy Previous section Social History (Updated 08/10/22 @ 01:[address] Justine Trent DO) household members: none Smoking Status: Former smoker how long ago did patient quit smoking: Quit cigarette tobacco in 2014, 1 ppd since teenager until quit. alcohol intake: never substance use type: does not use Vital Signs Vital Signs Vital Signs: 08/09/22 22:02 08/09/22 22:09 08/09/22 22:44 Temperature 98.3 F Temperature Source Temporal Pulse Rate 104 H Respiratory Rate 17 Respiratory Effort Normal Respiratory Pattern Normal Blood Pressure Blood Pressure Mean Pulse Ox 100 99 Oxygen Delivery Method Venturi Mask Nasal Cannula Oxygen Flow Rate (L/min) 4 2 08/10/22 00:55 Temperature Temperature Source Pulse Rate 116 H Respiratory Rate 18 Respiratory Effort Respiratory Pattern Blood Pressure 148/83 H Blood Pressure Mean 104 Pulse Ox 92 Oxygen Delivery Method Nasal Cannula Oxygen Flow Rate (L/min) 2 Weight Weight: 94.2 kg Body Mass Index (BMI) 35.6 Physical Exam Const Constitutional Narrative: Patient is sleepy but very arousable and appropriate with interactions, obese, middle-aged, white female who appears much older than stated age, lying in bed, appears ill but nontoxic General Appearance: cooperative HEENT normocephalic, head/scalp atraumatic and hearing grossly normal bilaterally HEENT Narrative: His membranes are dry, Mallampati is 2, no thrush, dentition is poor and is a dentulous Eyes PERRL, EOMs intact bilaterally and conjunctivae normal Neck no lymphadenopathy, supple and no JVD Neck Narrative: Neck is short and thick, trachea is midline, no thyroid enlargement Resp normal respiratory effort, no retractions, no use of accessory muscles and clear to auscultation bilaterally Resp Narrative: Diminished diffusely but clear Auscultation: Negative for crackles, rhonchi or wheezes Cardio regular rhythm, S1 normal heart sound, S2 normal heart sound, no murmurs, no rub, no gallops and no clicks Cardio Narrative: Sinus tachycardia GI normal to inspection, nondistended, normoactive bowel sounds and soft to palpat ion GI Narrative: Tenderness at epigastrium and right upper quadrant Palpation: tender Extremity Extremity Narrative: Trace bilateral lower extremity edema, no cyanosis or clubbing Skin no rashes or lesions noted, no wounds, skin turgor normal, no jaundice, no petechiae and no mottling Skin Narrative: Skin is pale Neuro oriented x3, CN's II-XII intact bilaterally, moves all extremities and no focal motor deficits Neuro Narrative: Generally debilitated but no focal deficits Speech: speech normal Psych Psych Narrative: Affect is flattened mood appears to be depressed Mood & Affect: depressed Results Lab / Micro Data Attestation: I reviewed the patient's lab results. Result Diagrams: 08/09/22 22:46 08/09/22 22:46 Labs: Laboratory Results - last 24 hr 08/09/22 22:46: WBC 12.7 H, RBC 4.11 L, Hgb 11.6 L, Hct 36.7 L, MCV 89.3, MCH 28.2, MCHC 31.6 L, RDW Std Deviation 42.9, RDW Coeff of Catina 13.2, Plt Count 134 L, MPV 10.7, Immature Gran % (Auto) 0.300, Neut % (Auto) 81.4 H, Lymph % (Auto) 10.3 L, [place] % (Auto) 6.2, Eos % (Auto) 1.7, Baso % (Auto) 0.1, Absolute Neuts (auto) 10.3 H, Absolute Lymphs (auto) 1.31, Nucleated RBC % 0 08/09/22 22:46: D-Dimer Quant (PE/DVT) 1.32 H* 08/09/22 22:46: Sodium 138, Potassium 4.8, Chloride 101, Carbon Dioxide 28.0, Anion Gap 9, BUN 27 H, Creatinine 1.13 H, Estim Creat Clear Calc 48.00, Est GFR (MDRD) Af Amer 64, Est GFR (MDRD) Non-Af 53 L, BUN/Creatinine Ratio 23.9 H, Glucose 180 H, Calcium 8.9, Total Bilirubin 0.40, Direct Bilirubin 0.08, AST 30, ALT 32, Alkaline Phosphatase 63, Troponin I High Sens 21, Total Protein 7.7, Albumin 3.6, Globulin 4.1, Lipase 521 H 08/10/22 00:45: Urine Color Yellow, Urine Clarity Sl. Cloudy, Urine pH 7.0, Ur Specific [place] 1.010, Urine Protein 100 H, Urine Glucose (UA) 1000 H, Urine Ketones Negative, Urine Occult Blood 150 H, Urine Nitrite Positive H, Urine Bilirubin Negative, Urine Urobilinogen Normal, Ur Leukocyte Esterase 500 H, Urine RBC 10-25 SEEN, Urine WBC >100 SEEN, Ur Squamous Epith Cells 0 SEEN, Urine Bacteria 3+, Urine Mucus 0 SEEN Radiology Impression Chest X-Ray 08/09/22 22:39 IMPRESSION: Poor inspiration with some bibasilar atelectasis. Electronically Signed: Man Staton MD at 23:01 EST , Chest CTA 08/09/22 23:14 IMPRESSION: Study limited by suboptimal opacification of the pulmonary arteries. No large or central pulmonary emboli. More distal pulmonary emboli cannot be excluded. Cardiomegaly with pulmonary findings of mild pulmonary edema versus infection. Small pericardial effusion. Electronically Signed: Kwame Herron MD at 0:22 EST , Assessment & Plan Assessment/Plan (1) Urinary retention: (2) Elevated lipase: (3) UTI (urinary tract infection): QUALIFIERS: Urinary tract infection type: site unspecified Hematuria presence: without hematuria Qualified Code(s): N39.0 - Urinary tract infection, site not specified (4) Leukocytosis: (5) Anemia: (6) Thrombocytopenia: (7) Pericardial effusion: PLAN: Plan Complicated UTI -Urine culture pending -Check blood cultures -We will continue ceftriaxone at this time -Maintain Cramer as patient had severe urinary retention on admission -As needed Tylenol for fever -As needed morphine for pain -Check retroperitoneal ultrasound Abdominal pain with elevated lipase -History does not sound like pancreatitis -Patient with no nausea or vomiting -Patient reports she feels food gets stuck at her distal esophagus -Could also be gastroparesis as patient has a significant history of diabetes that appears to be uncontrolled -We will check esophagram with above complaint -Also check right upper quadrant ultrasound -If the above is unyielding could consider CT of the abdomen pelvis however CT of the chest did not suggest any pancreatitis however it may had been limiting and imaging -As needed pain medication Anemia/thrombocytopenia -These both appear to be acute -Suspect related to acute infection -We will monitor serially -No signs of bleeding Small pericardial effusion -Noted on CT of the chest -Check echocardiogram Chronic hypoxia -Patient has required oxygen since COVID-19 infection approximately 1 year ago -Patient with extensive previous tobacco abuse history -Would recommend outpatient PFTs to be done after discharge -Patient is on her baseline oxygen supplementation at 2 L -Continue supplemental oxygen and wean as able -Would recommend outpatient pulmonary medicine follow-up as well DM-2 -Check hemoglobin A1c -Continue home basal insulin at 52 units at at bedtime -Continue home log 8 units 3 times daily with meals -Hold home Trulicity -Diabetic diet -Sliding scale insulin -Accu-Cheks Diabetic neuropathy -Continue home gabapentin Hypothyroidism -Continue levothyroxine -Check TSH CKD stage II -Serum creatinine currently at stable -We will hold meloxicam while she is ill Hypertension -We will hold lisinopril and HCTZ for now Hyperlipidemia -Continue home rosuvastatin DVT prophylaxis -Lovenox -SCDs CODE STATUS -full code Charges/Coding Visit Charges Inpatient E&M: 59618 Init Hosp L3
--- NOTE | 2022-08-10 01:39 | US_ITS ---
STUDY: ABDOMINAL ULTRASOUND - RIGHT UPPER QUADRANT REASON FOR VISIT: Female, 56 years old pain TECHNIQUE: Ultrasound evaluation of the right upper quadrant was performed with real-time and static reynolds-scale imaging. TECHNICAL QUALITY: Adequate. COMPARISON: None. FINDINGS: Liver: The liver measures 21.9 cm. There is increased echogenicity consistent with fatty infiltration. The bile ducts are within normal limits. There is hepatic color flow. The direction of portal flow is hepatopetal. 3.8 cm oval hypoechoic area in the medial right lobe of the liver adjacent to the gallbladder may represent focal sparing. Gallbladder: Normal distended gallbladder. The gallbladder wall measures 2 mm. There is a negative sonographic Chris''s sign. There is no pericholecystic fluid. Single tiny stone or polyp in the neck of the gallbladder. Common Bile Duct (C.B.D.): The common bile duct measures 6 mm. Pancreas: Normal size of the head, body and tail of the pancreas. There is normal echogenicity of the pancreas. There is no demonstrated pancreatic mass or cyst. Right Kidney: Normal size of the right kidney. The right kidney measures 14.1 cm. Normal renal cortex. The right cortex measures 1.8 cm. There is no demonstrated renal mass or cyst. There is no right hydronephrosis. US/Abdomen Limited IMPRESSION: 1. Single tiny stone or polyp in the neck of the gallbladder. 2. Fatty infiltration of the liver with suspected of focal sparing adjacent to the gallbladder. Correlation with liver mass protocol CT is recommended to exclude hepatic mass. Electronically Signed: Man Staton MD at 12:59 EST ,
[2022-08-10] MEDS: Acetaminophen 500 MG Tablet 1000 MG PO (01:53)
[2022-08-10] MEDS: 0.9% Normal Saline 1,000 ML 999 ML IV (01:54)
--- NOTE | 2022-08-10 01:57 | US_ITS ---
STUDY: RENAL ULTRASOUND - COMPLETE REASON FOR EXAM: Female, 56 years old. UTI with flank pain TECHNIQUE: Ultrasound evaluation of the kidneys was performed with real-time and static noguera-scale imaging. COMPARISON: None. FINDINGS: RIGHT KIDNEY: Normal location of the right kidney, which is normal in size. The right kidney measures 13.8 cm. There is a normal cortex of the right kidney. The renal cortex measures 2.2 cm. There is no right renal mass or cyst. There are no right renal calculi. There is no right hydronephrosis. DISTAL RIGHT URETER: There is non-visualization of the distal right ureter. There is no demonstrated right ureterovesical junction calculus. There is a visualized right ureteral jet. LEFT KIDNEY: Normal location of the left kidney, which is normal in size. The left kidney measures 12.8 cm. There is a normal cortex of the left kidney. The renal cortex measures 1.3 cm. There is no left renal mass or cyst. There are no left renal calculi. There is no left hydronephrosis. DISTAL LEFT URETER: There is non-visualization of the distal left ureter. There is no demonstrated left ureterovesical junction calculus. There is a visualized left ureteral jet. BLADDER: Cramer catheter in the collapsed bladder.. US/Kidney and Bladder IMPRESSION: Normal ultrasound of the kidneys. Electronically Signed: Man Staton MD at 12:51 EST ,
[2022-08-10 02:16] LABS: Lactic Acid 1.8 mmol/L (0.4-1.9)
[2022-08-10 02:26] LABS: Hemoglobin A1c 9.6 % (3.8-5.6)
[2022-08-10] MEDS: 0.9% Normal Saline 1,000 ML 75 ML IV (03:52)
[2022-08-10 04:16] LABS: Bedside Glucose 189 mg/dL (74-106)
--- NOTE | 2022-08-10 05:55 | ECHOD_ITS ---
Reason For Study: PERICARDIAL EFFUSION Procedure This was a 2D Doppler, Color Flow transthoracic echocardiogram. Exam performed portable in patient room. Left Ventricle Normal LV size. Left ventricular systolic function is normal. The estimated ejection fraction is 55 %. No regional wall motion abnormalities noted. Right Ventricle Normal RV size. Normal systolic function. Atria Normal left atrium. Normal right atrium. Mitral Valve Normal mitral valve. Tricuspid Valve Normal tricuspid valve. Aortic Valve Trisinus/trileaflet aortic valve. Pulmonic Valve The pulmonic valve is not well visualized. Great Vessels Normal aortic root. The pulmonary artery is normal size. Normal inferior vena cava. Pericardium/Pleural No pericardial effusion. MMode/2D Measurements & Calculations LVIDd: 4.7 cm IVSd: 1.2 cm Ao root diam: 3.1 cm LVIDs: 3.3 cm LVPWd: 1.2 cm RVDd: 3.2 cm FS: 30.5 % LAV(MOD-bp): 86.2 ml LVAd ap4: 29.3 cm2 LVAd ap2: 29.1 cm2 LAV(MOD-bp) Indexed: 43.4 ml/m2 LVLd ap4: 8.0 cm LVLd ap2: 8.8 cm LAV(MOD-sp2): 77.2 ml EDV(MOD-sp4): 90.9 ml EDV(MOD-sp2): 81.1 ml LAV(MOD-sp4): 82.0 ml EDV(sp4-el): 91.3 ml EDV(sp2-el): 81.6 ml LVAs ap4: 16.0 cm2 LVAs ap2: 14.3 cm2 LVLs ap4: 6.9 cm LVLs ap2: 6.8 cm ESV(MOD-sp4): 33.1 ml ESV(MOD-sp2): 28.4 ml ESV(sp4-el): 31.5 ml ESV(sp2-el): 25.4 ml EF(MOD-sp4): 63.6 % EF(MOD-sp2): 65.0 % EF(sp4-el): 65.5 % SV(MOD-sp4): 57.8 ml SV(MOD-sp2): 52.7 ml SV(sp4-el): 59.8 ml LA dimension(2D): 3.6 cm LA A4 area: 26.5 cm2 RA A4 area: 14.6 cm2 Time Measurements MV dec time: 0.17 sec Doppler Measurements & Calculations MV E max riccardo: 81.6 cm/sec Lat Peak E' Riccardo: 10.5 cm/sec Med Peak E' Riccardo: 8.5 cm/sec MV A max riccardo: 77.9 cm/sec E/E' lat: 7.8 E/E' med: 9.6 MV E/A: 1.0 MV dec slope: 503.7 cm/sec2 Ao V2 max: 183.3 cm/sec LV V1 max: 133.2 cm/sec Ao max P.4 mmHg LV V1 max P.1 mmHg Ao V2 mean: 111.3 cm/sec LV V1 mean P.6 mmHg Ao mean P.7 mmHg LV V1 mean: 90.3 cm/sec Ao V2 VTI: 31.7 cm LV V1 VTI: 24.9 cm PA V2 max: 108.3 cm/sec TR max riccardo: 256.2 cm/sec TR max P.3 mmHg ECHO/Echo Complete Interpretation Summary Normal LV size. Left ventricular systolic function is normal. The estimated ejection fraction is 55 %. No pericardial effusion. Ordering Physician: Justine Trent Referring Physician: Rebeka Rabago Performed By: Asiya Kramer, LEDA, RVT
[2022-08-10 06:02] LABS: Absolute Lymphocyte Count 1.39 X10^3/uL (0.83-4.51); Absolute Neutrophil Count 10.6 X10^3/uL (2.0-7.7); Basophil# 0.02 X10^3/uL; Basophil% 0.2 % (0-1); Eosinophil# 0.03 X10^3/uL; Eosinophils% 0.2 % (0-5); Hematocrit 31.9 % (37-47); Hemoglobin 10.5 g/dL (12.0-15.0); Lymphocyte # 1.39 X10^3/ul (0.83-4.51); Lymphocyte % 10.8 % (19-41); Mean Corp Hgb Conc 32.9 g/dL (32-36); Mean Corpuscular Volume 88.1 fL (81-99); Mean Platelet Vol. 11.2 fl (6.2-12.0); Monocyte# 0.77 X10^3/uL; NRBC Flagged by Analyzer 0 % (0-5); Neutrophil # 10.59 X10^3/uL (2.7-7.7); Neutrophil % 82.3 % (47-70); Platelet Count 130 K/mm3 (150-450); RBC Distribution Width CV 13.4 % (11.6-14.6); RBC Distribution Width SD 43.2 fl (35.1-43.9); Red Blood Count 3.62 M/mm3 (4.2-5.4); White Blood Count 12.9 K/mm3 (4.4-11.0)
[2022-08-10 06:39] LABS: ALB/GLOB Ratio 0.9 RATIO (0.9-2.4); AST(SGOT) 19 U/L (15-37); Alanine Aminotransfer ALT/SGPT 24 U/L (13-56); Alkaline Phosphatase 50 U/L (45-117); Anion Gap 8 (5-15); BUN 28 mg/dL (7-18); BUN/Creat Ratio 21.9 RATIO (10-20); Calcium,Total 8.1 mg/dL (8.5-10.1); Chloride 104 mmol/L (98-107); Creatinine, Serum 1.28 mg/dL (0.55-1.02); EST Glomerular Filtration Rate 46 mL/min (>60); Est Glom Filt Rate - Afr Amer 55 mL/min (>60); Estimated Creatinine Clearance 42.38 ml/min; Globulin 3.4 g/dL (2.2-4.2); Glucose 171 mg/dL (74-106); Phosphorus 1.9 mg/dL (2.5-4.9); Protein, Total 6.4 g/dL (6.4-8.2); Sodium Level 139 mmol/L (136-145); Thyroid Stim Hormone (TSH) 0.61 uIU/mL (0.358-3.74)
[2022-08-10] MEDS: Acetaminophen 325 MG Tablet 650 MG PO ×3 (06:55→22:02)
[2022-08-10] MEDS: Levothyroxine 175 MCG Tablet PO (06:57)
[2022-08-10] MEDS: prednisoLONE eye drops (5 mL) 1 DROP OPTH.BTL 1 DRP OPHTHALMIC ×3 (06:57→17:06)
--- NOTE | 2022-08-10 11:50 | RAD_ITS ---
STUDY: X-RAY - ESOPHAGUS (BARIUM SWALLOW) WITH FLUOROSCOPY REASON FOR EXAM: Female, 56 years old. Pain at GE junction with eating TECHNIQUE: 19 view(s) of the esophagus were obtained following swallowing of barium. FLUOROSCOPY TIME (if supplied): (43 seconds) minutes/seconds COMPARISON: None. FINDINGS: There is no demonstrated esophageal foreign body. There is no demonstrated stricture or mucosal abnormality. Normal gastroesophageal junction, without a demonstrated hiatal hernia. The patient ingested a 12 mm tablet of barium without any difficulty. Normal visualized aortic arch and descending thoracic aorta. Normal visualized pulmonary parenchyma. Normal visualized osseous structures of the thorax. RAD/Esophagus Dual Contrast IMPRESSION: Normal plain film x-ray examination (barium swallow) of the esophagus. Electronically Signed: Dominick Araiza MD at 12:33 EST ,
[2022-08-10] MEDS: Pantoprazole Sodium 40 MG Tablet PO (12:36)
[2022-08-10] MEDS: Fenofibrate 145 MG Tablet PO (12:36)
[2022-08-10] MEDS: Enoxaparin 40 MG/0.4 ML Syringe SC (12:36)
[2022-08-10 12:46] LABS: Bedside Glucose 139 mg/dL (74-106)
[2022-08-10] MEDS: Insulin Lispro 100 UNIT/ML INSULN.PEN 8 UNIT SC ×2 (12:58→17:09)
--- NOTE | 2022-08-10 13:40 | CASEMGMT ---
Addendum entered by Greta Collins 08/10/22 14:30: Pt lives in a mobile home with 3 steps to enter with a rail. Original Note: COLT ORTIZ Assessment: Face to Face with pt for initial transition planning/care coordination assessment. COLT ORTIZ introduced self and role at [facility], pt voices understanding and consents to assessment. Pt is A/O x4 and answers all questions appropriately at this time. Pt sitting up in chair and just finished with therapy. Pt discussed with therapy that she feels she can return home without services as she will be getting therapy daily. Care providers, pharmacy, and demographics verified/updated. Admitting Dx: complicated UTI PCP:[facility] Specialists:Ramon pulpantera; Yulissa endo; Stella, neuro; nany Zamora Preferred Pharmacy: [facility] Insurance: [facility] Prescription Benefit: yes LW/HPOA: Pt denies having a LW/DPOA and denies need for info regarding AD. LNOK: Ann-Marie Romero, sister in law; Laura Philippe, friend Living Arrangements: Pt lives with son who has MR. She reports she is I in ADL's and denies concerns at home. States her son assists her if needed. Pt denies concerns at home. Transportation: Pt reports her sister in law provides transportation. DME/HHC/SNF: Pt has a [employer] sensor for BGM and checks it 3-4x/day. Pt also has a shower chair and pox at home. Pt has oxygen through [employer]. Reports she uses 4L continuous, will verify. Pt denies hx of HHC or SNF stays. Pt states no concerns with going home at time of dc. Pt denies need for any HHC therapy or outpt therapy. Pt states no further concerns/needs. CM to follow. Advised pt to ask CM if any further question/concerns/needs arise, voices understanding. Pt Goal: Home Plan: Home
[2022-08-10] MEDS: 0.9% Normal Saline 1,000 ML 125 ML IV (17:05)
[2022-08-10] MEDS: Insulin Lispro 100 UNIT/ML INSULN.PEN SC (17:10)
[2022-08-10 17:16] LABS: Bedside Glucose 182 mg/dL (74-106)
--- NOTE | 2022-08-10 19:32 | PCM.HOSP.N ---
Hospitalist Note Patient was seen and examined briefly today, she is alert and does not complain of any fever or chills. Patient states she currently is on chronic oxygen therapy at home. Patient's echocardiogram today showed a normal EF, renal ultrasound was unremarkable, ultrasound of the abdomen showed a possible stone or polyp in the gallbladder neck. Patient does not complain of any abdominal pain at this time. For now I plan on continuing the patient's IV antibiotic coverage and wait for cultures to return. PT and OT will see the patient and evaluate her for home-going needs.
[2022-08-10] MEDS: Fluticasone 0.05% 1 SPRAY NASAL.SRY 2 SPRAY NASAL (21:57)
[2022-08-10] MEDS: Atorvastatin Calcium 20 MG Tablet PO (21:58)
[2022-08-10] MEDS: Insulin Glargine-YFGN 100 UNIT/ML Pen 52 UNIT SC (21:59)
[2022-08-10] MEDS: Gabapentin 300 MG Capsule PO (22:02)
[2022-08-10 22:25] LABS: Bedside Glucose 249 mg/dL (74-106)
[2022-08-11] VITALS (8 sets, daily range): BP systolic 108–130; BP diastolic 54–66; PULSE 70–78; RESP 16–18; TEMP 36.6–36.7; O2SAT 86–97
[2022-08-11] MEDS: 0.9% Normal Saline 1,000 ML 125 ML IV (00:56)
[2022-08-11] MEDS: Levothyroxine 175 MCG Tablet PO (05:41)
[2022-08-11 06:09] LABS: Absolute Lymphocyte Count 1.54 X10^3/uL (0.83-4.51); Absolute Neutrophil Count 3.9 X10^3/uL (2.0-7.7); Basophil# 0.01 X10^3/uL; Basophil% 0.2 % (0-1); Eosinophil# 0.11 X10^3/uL; Eosinophils% 1.8 % (0-5); Hematocrit 30.6 % (37-47); Hemoglobin 9.6 g/dL (12.0-15.0); Lymphocyte # 1.54 X10^3/ul (0.83-4.51); Lymphocyte % 24.8 % (19-41); Mean Corp Hgb Conc 31.4 g/dL (32-36); Mean Corpuscular Hgb 28.1 pg (27.0-32.0); Mean Corpuscular Volume 89.5 fL (81-99); Mean Platelet Vol. 11.1 fl (6.2-12.0); Monocyte% 9.6 % (0-10); NRBC Flagged by Analyzer 0 % (0-5); Neutrophil # 3.93 X10^3/uL (2.7-7.7); Neutrophil % 63.1 % (47-70); Platelet Count 110 K/mm3 (150-450); RBC Distribution Width CV 13.8 % (11.6-14.6); RBC Distribution Width SD 45.1 fl (35.1-43.9); Red Blood Count 3.42 M/mm3 (4.2-5.4); White Blood Count 6.2 K/mm3 (4.4-11.0)
[2022-08-11] MEDS: Insulin Lispro 100 UNIT/ML INSULN.PEN SC (07:40)
[2022-08-11] MEDS: Insulin Lispro 100 UNIT/ML INSULN.PEN 8 UNIT SC (07:40)
[2022-08-11] MEDS: Fenofibrate 145 MG Tablet PO (07:41)
--- NOTE | 2022-08-11 09:21 | DCINST_ITS ---
Discharge Instructions Diet Discharge Diet: 1800 Calorie Control Diet Activity Discharge Activity: Return to Normal Activity Weight Bearing Status: Full weight bearing Follow Up Care Test Results: Test results from this visit will be discussed in further detail at your follow- up appointment, if applicable. Discharge Plan Admission Admit Date/Time: 08/10/22 01:31 Primary Reason for Your Visit: Acute cystitis Attending Provider: Familia Mock Primary Care Provider: Rebeka Rabago Consulting Providers: Jsutine Trent Discharge Orders/Prescriptions Prescriptions: New levofloxacin 500 mg tablet 500 mg PO DAILY Qty: 4 0RF Rx Instructions: start on 08/12/22 Continued fluticasone propionate 1 SPRAY spray,suspension 2 spray NASAL QHS Label Comments: allergies gabapentin 300 mg capsule 300 mg PO QHS Label Comments: take 1 capsule by mouth at bedtime estradiol 0.01 % (0.1 mg/gram) cream 3 g VAGINAL .2X/WEEK Label Comments: insert 3 grams vaginally two times a week fenofibrate 160 mg tablet 160 mg PO DAILY Label Comments: take 1 tablet by mouth once daily Trulicity 1.5 mg/0.5 mL pen injector 1.5 mg SUBCUT JOHNSON Label Comments: inject 0.5 milliliters ( 1 AND 1/2 milligrams ) subcutaneously every week levothyroxine 175 mcg tablet 175 mcg PO DAILY Label Comments: take 1 tablet by mouth once daily ON AN EMPTY STOMACH (FOR THYROID) vitamin E 400 unit Capsule 400 unit PO DAILY omega-3 fatty acids-vitamin E 1,000 mg Capsule 1 cap PO DAILY meloxicam 15 mg tablet 15 mg PO DAILY PRN (Reason: Pain) Label Comments: take 1 tablet by mouth once daily if needed for pain with food ketorolac 0.5 % drops 1 drp ophthalmic (eye) Q6H Label Comments: instill 1 drop into left eye four times a day prednisolone acetate 1 % drops,suspension 1 drp ophthalmic (eye) Q6H Label Comments: instill 1 drop into right eye four times a day hydrochlorothiazide 12.5 mg capsule 12.5 mg PO DAILY Label Comments: take 1 capsule by mouth once daily lisinopril 2.5 mg tablet 2.5 mg PO DAILY Label Comments: take 1 tablet by mouth once daily dicyclomine 10 mg capsule 10 mg PO ACHS Label Comments: take 1 capsule by mouth four times a day before meals and at bedtime FOR ABDOMINAL PAIN rosuvastatin 10 mg tablet 10 mg PO DAILY Label Comments: take 1 tablet by mouth at bedtime insulin degludec [Tresiba FlexTouch U-100] 100 unit/mL (3 mL) insulin pen 52 unit SUBCUT QHS Label Comments: INJECT 50 UNITS SUBCUTANEOUSLY DAILY AT BEDTIME ondansetron 4 mg tablet,disintegrating 4 mg PO Q8H PRN (Reason: nausea and vomiting) Qty: 10 0RF insulin lispro [Humalog KwikPen Insulin] 100 unit/mL Insulin Pen 8 unit subcut TIDCM Qty: 0 0RF Referrals / Follow Up: Rebeka Rabago MD [Primary Care Provider] - Within 2 Weeks Disposition Disposition (needs filled in before D/C Order can be placed): Home, Self Care
[2022-08-11] MEDS: Enoxaparin 40 MG/0.4 ML Syringe SC (09:31)
[2022-08-11] MEDS: Pantoprazole Sodium 40 MG Tablet PO (09:32)
--- NOTE | 2022-08-11 09:33 | DS.PCM_ITS ---
Providers Date of Admission: 08/10/22 Date of Discharge: 08/11/22 Primary Care Physician: Dr. Rebeka Rabago MD Reason For Visit: COMPLICATED URINARY TRACT INFECTION Diagnosis Discharge Diagnosis (1) Urinary retention: Status: Acute Code(s): R33.9 - Retention of urine, unspecified (2) Elevated lipase: Status: Acute Code(s): R74.8 - Abnormal levels of other serum enzymes (3) UTI (urinary tract infection): Status: Acute Code(s): N39.0 - Urinary tract infection, site not specified Qualifiers: Hematuria presence: without hematuria Urinary tract infection type: site unspecified Qualified Code(s): N39.0 - Urinary tract infection, site not specified (4) Leukocytosis: Status: Acute Code(s): D72.829 - Elevated white blood cell count, unspecified (5) Anemia: Status: Acute Code(s): D64.9 - Anemia, unspecified (6) Thrombocytopenia: Status: Acute Code(s): D69.6 - Thrombocytopenia, unspecified (7) Pericardial effusion: Status: Acute Code(s): I31.39 - Other pericardial effusion (noninflammatory) Plan 1. Acute cystitis from gram-negative aisha-exact organism unknown #2 chronic hypoxic respiratory failure #3 small pericardial effusion-significance unknown #4 type 2 diabetes #5 hypothyroidism #6 hyperlipidemia Medications at Discharge Home Medications fluticasone propionate 50 mcg/actuation nasal spray,suspension 2 spray QHS nasal spray 05/24/15 dulaglutide 1.5 mg/0.5 mL subcutaneous pen injector (Trulicity) 1.5 mg subcut JOHNSON dm 03/25/21 estradiol 0.01% (0.1 mg/gram) vaginal cream 3 g vaginal .2X/WEEK health maintenance 03/25/21 fenofibrate 160 mg tablet 160 mg PO DAILY cholesterol 03/25/21 gabapentin 300 mg capsule 300 mg PO QHS nerve pain 03/25/21 levothyroxine 175 mcg tablet 175 mcg PO DAILY thyroid 03/25/21 omega-3 fatty acids-vitamin E 1,000 mg capsule 1 cap PO DAILY supplement 03/25/21 vitamin E 268 mg (400 unit) capsule 400 unit PO DAILY supplement 03/25/21 dicyclomine 10 mg capsule 10 mg PO ACHS abdominal pain 07/06/21 hydrochlorothiazide 12.5 mg capsule 12.5 mg PO DAILY diuretic 07/06/21 insulin degludec 100 unit/mL (3 mL) subcutaneous pen (Tresiba FlexTouch U-100 insulin) 52 unit subcut QHS diabetes 07/06/21 ketorolac 0.5 % eye drops 1 drp ophthalmic (eye) Q6H eye 07/06/21 lisinopril 2.5 mg tablet 2.5 mg PO DAILY blood pressure 07/06/21 meloxicam 15 mg tablet 15 mg PO DAILY PRN Pain 07/06/21 ondansetron 4 mg disintegrating tablet 4 mg PO Q8H PRN nausea and vomiting #10 tabs 07/06/21 prednisolone acetate 1 % eye drops,suspension 1 drp ophthalmic (eye) Q6H eye 07/06/21 rosuvastatin 10 mg tablet 10 mg PO DAILY cholesterol 07/06/21 insulin lispro 100 unit/mL subcutaneous pen (Humalog KwikPen (U-100) Insulin) 8 unit (0.08 mL) subcut TIDCM #0 mL 07/21/21 levofloxacin 500 mg tablet 500 mg PO DAILY #4 tabs 08/11/22 Hospital Course Operations None Procedures 2-D Echocardiogram Summary of Care Provided Minutes Spent on Discharge: 31 Hospital Course: This 56-year-old white female was seen in the emergency room at [facility] with complaints of malaise and chills, fever, lower abdominal pain and some shortness of breath. She also reported she was having urinary retention and significant pain with urination. A Cramer was inserted in the emergency room after the patient was bladder scanned and found to have a significant amount of urine in her bladder, a liter of fluid was returned. Patient's temperature initially was 98.3 however she did develop a temp of 101.5, CBC showed a leukocytosis with a white count of 12.7, urine was grossly positive for RBCs, white blood cells, +3 bacteria, and positive nitrates. D- dimer was elevated and a CTA was performed which was negative for pulmonary embolism. There was noted to be scattered groundglass opacities which were felt to be related to previous COVID-19 infection. Patient was given IV fluids and IV antibiotics and admitted to [place] [id number], an echocardiogram was performed due to a small pericardial effusion that was noted to be present on the CTA of her chest. Echocardiogram showed a normal EF with minimal pericardial effusion. Ultrasound of her abdomen was performed which showed a possible stone or polyp in the gallbladder neck, patient had no complaints of any right upper quadrant abdominal pain however. Urine culture results returned with showing small numbers of gram negative rods-the exact identification of the organism was not able to be identified. Patient's symptoms improved during her hospitalization. On 08/11/2022, patient was seen and examined: On examination she appeared in good health and spirits, she does not appear to be in any distress. Vital signs as documented. Skin warm and dry and without overt rashes. Neck without JVD, thyroid appears normal, trachea is midline, neck is supple. Lungs clear, normal air movement was noted. Heart exam notable for regular rhythm, normal sounds and absence of murmurs, rubs or gallops. Abdomen unremarkable and without evidence of organomegaly, masses, or abdominal aortic enlargement, bowel sounds are present in all 4 quadrants, no abdominal tenderness was noted. Extremities nonedematous, no cyanosis was noted, no clubbing was noted. Neuro: Cranial nerves II through XII are grossly intact, no focal motor deficits were noted, sensation to light touch and pinprick is intact, motor exam 5/5 throughout. Psych: Patient is alert and oriented x3, she does not appear anxious or depressed, she does not appear agitated. On 08/11/2022, patient was seen and examined and felt to be stable for discharge home Weight / BMI Weight Weight: 94.2 kg Body Mass Index (BMI) 35.4 ABG / Lab / Microbiology Data Result Diagrams: 08/11/22 05:33 08/10/22 05:16 Laboratory: Laboratory Results - last 24 hr 08/10/22 12:22: POC Glucose 139 H 08/10/22 16:56: POC Glucose 182 H 08/10/22 21:56: POC Glucose 249 H 08/11/22 05:33: WBC 6.2, RBC 3.42 L, Hgb 9.6 L, Hct 30.6 L, MCV 89.5, MCH 28.1, MCHC 31.4 L, RDW Std Deviation 45.1 H, RDW Coeff of Catina 13.8, Plt Count 110 L, MPV 11.1, Immature Gran % (Auto) 0.500, Neut % (Auto) 63.1, Lymph % (Auto) 24.8, [place] % (Auto) 9.6, Eos % (Auto) 1.8, Baso % (Auto) 0.2, Absolute Neuts (auto) 3.9, Absolute Lymphs (auto) 1.54, Nucleated RBC % 0 Radiography Diagnostic Testing: Radiology Impression Abdomen Ultrasound 08/10/22 01:39 IMPRESSION: 1. Single tiny stone or polyp in the neck of the gallbladder. 2. Fatty infiltration of the liver with suspected of focal sparing adjacent to the gallbladder. Correlation with liver mass protocol CT is recommended to exclude hepatic mass. Electronically Signed: Man Staton MD at 12:59 EST , Renal Ultrasound 08/10/22 01:57 IMPRESSION: Normal ultrasound of the kidneys. Electronically Signed: Man Staton MD at 12:51 EST , Echocardiogram 08/10/22 05:55 Interpretation Summary Normal LV size. Left ventricular systolic function is normal. The estimated ejection fraction is 55 %. No pericardial effusion. Ordering Physician: Justine Trent Referring Physician: Rebeka Rabago Performed By: Asiya Kramer, RDCS, RVT Barium Swallow X-Ray 08/10/22 11:50 IMPRESSION: Normal plain film x-ray examination (barium swallow) of the esophagus. Electronically Signed: Dominick Araiza MD at 12:33 EST , D/C Instructions Discharge Diet: 1800 Calorie Control Diet Weight Bearing Status: Full weight bearing Meaningful Use Info Meaningful Use Diagnoses (Choose all that apply): None applicable Discharge Plan Admission Admit Date/Time: 08/10/22 01:31 Primary Reason for Your Visit: Acute cystitis Attending Provider: Familia Mock Primary Care Provider: Rebeka Rabago Consulting Providers: Justine Trent Discharge Orders/Prescriptions Prescriptions: New levofloxacin 500 mg tablet 500 mg PO DAILY Qty: 4 0RF Rx Instructions: start on 08/12/22 Continued fluticasone propionate 1 SPRAY spray,suspension 2 spray NASAL QHS Label Comments: allergies gabapentin 300 mg capsule 300 mg PO QHS Label Comments: take 1 capsule by mouth at bedtime estradiol 0.01 % (0.1 mg/gram) cream 3 g VAGINAL .2X/WEEK Label Comments: insert 3 grams vaginally two times a week fenofibrate 160 mg tablet 160 mg PO DAILY Label Comments: take 1 tablet by mouth once daily Trulicity 1.5 mg/0.5 mL pen injector 1.5 mg SUBCUT JOHNSON Label Comments: inject 0.5 milliliters ( 1 AND 1/2 milligrams ) subcutaneously every week levothyroxine 175 mcg tablet 175 mcg PO DAILY Label Comments: take 1 tablet by mouth once daily ON AN EMPTY STOMACH (FOR THYROID) vitamin E 400 unit Capsule 400 unit PO DAILY omega-3 fatty acids-vitamin E 1,000 mg Capsule 1 cap PO DAILY meloxicam 15 mg tablet 15 mg PO DAILY PRN (Reason: Pain) Label Comments: take 1 tablet by mouth once daily if needed for pain with food ketorolac 0.5 % drops 1 drp ophthalmic (eye) Q6H Label Comments: instill 1 drop into left eye four times a day prednisolone acetate 1 % drops,suspension 1 drp ophthalmic (eye) Q6H Label Comments: instill 1 drop into right eye four times a day hydrochlorothiazide 12.5 mg capsule 12.5 mg PO DAILY Label Comments: take 1 capsule by mouth once daily lisinopril 2.5 mg tablet 2.5 mg PO DAILY Label Comments: take 1 tablet by mouth once daily dicyclomine 10 mg capsule 10 mg PO ACHS Label Comments: take 1 capsule by mouth four times a day before meals and at bedtime FOR ABDOMINAL PAIN rosuvastatin 10 mg tablet 10 mg PO DAILY Label Comments: take 1 tablet by mouth at bedtime insulin degludec [Tresiba FlexTouch U-100] 100 unit/mL (3 mL) insulin pen 52 unit SUBCUT QHS Label Comments: INJECT 50 UNITS SUBCUTANEOUSLY DAILY AT BEDTIME ondansetron 4 mg tablet,disintegrating 4 mg PO Q8H PRN (Reason: nausea and vomiting) Qty: 10 0RF insulin lispro [Humalog KwikPen Insulin] 100 unit/mL Insulin Pen 8 unit subcut TIDCM Qty: 0 0RF Referrals / Follow Up: Rebeka Rabago MD [Primary Care Provider] - Within 2 Weeks Disposition Disposition (needs filled in before D/C Order can be placed): Home, Self Care Charges/Coding Visit Charges Inpatient E&M: 22525 Disch Hosp
--- NOTE | 2022-08-11 10:19 | PHA.DC.MC ---
Pharmacy Service has performed discharge medication reconciliation and counseling for this patient. 1. LEVOFLOXACIN 500MG PO DAILY X 4 DAYS The patient's discharge medication list was reviewed for discrepancies and discrepancies were resolved. Home Medications fluticasone propionate 50 mcg/actuation nasal spray,suspension 2 spray QHS nasal spray 05/24/15 dulaglutide 1.5 mg/0.5 mL subcutaneous pen injector (Trulicity) 1.5 mg subcut JOHNSON dm 03/25/21 estradiol 0.01% (0.1 mg/gram) vaginal cream 3 g vaginal .2X/WEEK health maintenance 03/25/21 fenofibrate 160 mg tablet 160 mg PO DAILY cholesterol 03/25/21 gabapentin 300 mg capsule 300 mg PO QHS nerve pain 03/25/21 levothyroxine 175 mcg tablet 175 mcg PO DAILY thyroid 03/25/21 omega-3 fatty acids-vitamin E 1,000 mg capsule 1 cap PO DAILY supplement 03/25/21 vitamin E 268 mg (400 unit) capsule 400 unit PO DAILY supplement 03/25/21 dicyclomine 10 mg capsule 10 mg PO ACHS abdominal pain 07/06/21 hydrochlorothiazide 12.5 mg capsule 12.5 mg PO DAILY diuretic 07/06/21 insulin degludec 100 unit/mL (3 mL) subcutaneous pen (Tresiba FlexTouch U-100 insulin) 52 unit subcut QHS diabetes 07/06/21 ketorolac 0.5 % eye drops 1 drp ophthalmic (eye) Q6H eye 07/06/21 lisinopril 2.5 mg tablet 2.5 mg PO DAILY blood pressure 07/06/21 meloxicam 15 mg tablet 15 mg PO DAILY PRN Pain 07/06/21 ondansetron 4 mg disintegrating tablet 4 mg PO Q8H PRN nausea and vomiting #10 tabs 07/06/21 prednisolone acetate 1 % eye drops,suspension 1 drp ophthalmic (eye) Q6H eye 07/06/21 rosuvastatin 10 mg tablet 10 mg PO DAILY cholesterol 07/06/21 insulin lispro 100 unit/mL subcutaneous pen (Humalog KwikPen (U-100) Insulin) 8 unit (0.08 mL) subcut TIDCM #0 mL 07/21/21 levofloxacin 500 mg tablet 500 mg PO DAILY #4 tabs 08/11/22 The patient was counseled on the following discharge medications and changes in medications for homegoing were reviewed. The Reason for Use, instructions for use, and potential side effects were reviewed for all new medications. The patient's questions regarding all of their medications were answered. The patient was able to verbally demonstrate an understanding of their discharge medications. Patient counseled by pharmacy salespersonGabbie.
[2022-08-11] MEDS: levoFLOXacin 500 MG Tablet PO (10:24)
--- NOTE | 2022-08-11 10:58 | CASEMGMT ---
Noted oxygen testing, pt does not require increase in rx. Pt is aware of oxygen testing results. Pt has portable tank here at hospital. Pt denies any homegoing needs.
[2022-08-11 11:56] LABS: Bedside Glucose 203 mg/dL (74-106)
== END 2022-08-11 10:53 | disposition home or self-care (01) | DRG 463 ==
LOC: ED 08-10 01:26 → MS3 08-10 04:23
PROVIDERS: Admitting Provider Internal Medicine; Emergency Provider Emergency Medicine; PCP Internal Medicine; Visit Provider Internal Medicine
DX: N30.00 Acute cystitis without hematuria (principal); I31.39 Other pericardial effusion (noninflammatory); J96.11 Chronic respiratory failure with hypoxia; E11.22 Type 2 diabetes mellitus with diabetic chronic kidney disease; E03.9 Hypothyroidism, unspecified; D64.9 Anemia, unspecified; E11.40 Type 2 diabetes mellitus with diabetic neuropathy, unspecified; Z79.4 Long term (current) use of insulin; E11.43 Type 2 diabetes mellitus with diabetic autonomic (poly)neuropathy; I12.9 Hypertensive chronic kidney disease with stage 1 through stage 4 chronic kidney disease, or unspecified chronic kidney disease; N18.2 Chronic kidney disease, stage 2 (mild); E78.00 Pure hypercholesterolemia, unspecified; E78.5 Hyperlipidemia, unspecified; K80.20 Calculus of gallbladder without cholecystitis without obstruction; F32.A Depression, unspecified; R33.9 Retention of urine, unspecified; Z86.16 Personal history of COVID-19; Z87.891 Personal history of nicotine dependence; R74.8 Abnormal levels of other serum enzymes
CPT/HCPCS: 36415; 51702; 71045; 71275; 74221; 76705; 76770; 80048; 80053; 80076; 81001; 82962; 83036; 83605; 83690; 83735; 84100; 84443; 84484; 85025; 85379; 87040; 87086; 87088; 93005; 93306; 97162; 97166; 99251; 99285; J7030; Q9967; A4216; G0463; J2405

== ENCOUNTER 2023-01-05 19:02 | Emergency (ER) | payer MEDICAID, SELFPAY ==
[2023-01-05 19:03] VITALS: BP 112/84; PULSE 81; RESP 18; TEMP 36; O2SAT 94
[2023-01-05 19:23] VITALS: BMI 41.7
--- NOTE | 2023-01-05 19:39 | ED.VIS.DYS ---
HPI History of Present Illness Chief Complaint: Shortness of Breath Narrative Narrative: 57-year-old female presenting with shortness of breath, increased abdominal girth, lower extremity edema. She states this has been going on for about a week. She denies a history of heart failure. She states he had an echo done on 12/29/2022 and states that she has fluid around her heart. She has shortness of breath with exertion. She is wearing her baseline oxygen. No chest pain. [facility] Medical History Anemia Chronic respiratory failure with hypoxia Elevated lipase Former tobacco use Hypercholesteremia Hypertension Hypothyroid Kidney stones Migraines Obesity Pericardial effusion Thrombocytopenia Type 2 diabetes mellitus Urinary retention UTI (urinary tract infection) Home Medications fluticasone propionate 50 mcg/actuation nasal spray,suspension 2 spray QHS nasal spray 05/24/15 [History Last Taken 03/24/21] dulaglutide 1.5 mg/0.5 mL subcutaneous pen injector (Trulicity) 1.5 mg subcut JOHNSON dm 03/25/21 [History Last Taken 03/23/21] estradiol 0.01% (0.1 mg/gram) vaginal cream 3 g vaginal .2X/WEEK health maintenance 03/25/21 [History Last Taken Unknown] fenofibrate 160 mg tablet 160 mg PO DAILY cholesterol 03/25/21 [History Last Taken 03/24/21] gabapentin 300 mg capsule 300 mg PO QHS nerve pain 03/25/21 [History Last Taken 03/24/21] levothyroxine 175 mcg tablet 175 mcg PO DAILY thyroid 03/25/21 [History Last Taken 03/24/21] omega-3 fatty acids-vitamin E 1,000 mg capsule 1 cap PO DAILY supplement 03/25/21 [History Last Taken 03/24/21] vitamin E 268 mg (400 unit) capsule 400 unit PO DAILY supplement 03/25/21 [History Last Taken 03/24/21] dicyclomine 10 mg capsule 10 mg PO ACHS abdominal pain 07/06/21 [History Last Taken Unknown] hydrochlorothiazide 12.5 mg capsule 12.5 mg PO DAILY diuretic 07/06/21 [History Last Taken Unknown] insulin degludec 100 unit/mL (3 mL) subcutaneous pen (Tresiba FlexTouch U-100 insulin) 52 unit subcut QHS diabetes 07/06/21 [History Last Taken Unknown] ketorolac 0.5 % eye drops 1 drp ophthalmic (eye) Q6H eye 07/06/21 [History Last Taken Unknown] lisinopril 2.5 mg tablet 2.5 mg PO DAILY blood pressure 07/06/21 [History Last Taken Unknown] meloxicam 15 mg tablet 15 mg PO DAILY PRN Pain 07/06/21 [History Last Taken Unknown] ondansetron 4 mg disintegrating tablet 4 mg PO Q8H PRN nausea and vomiting #10 tabs 07/06/21 [Rx Last Taken Unknown] prednisolone acetate 1 % eye drops,suspension 1 drp ophthalmic (eye) Q6H eye 07/06/21 [History Last Taken Unknown] rosuvastatin 10 mg tablet 10 mg PO DAILY cholesterol 07/06/21 [History Last Taken Unknown] insulin lispro 100 unit/mL subcutaneous pen (Humalog KwikPen (U-100) Insulin) 8 unit (0.08 mL) subcut TIDCM #0 mL 07/21/21 [Rx Last Taken Unknown] levofloxacin 500 mg tablet 500 mg PO DAILY #4 tabs 08/11/22 [Rx Last Taken Unknown] Allergy/AdvReac Type Severity Reaction Status Date / Time metformin AdvReac Diarrhea Verified 01/05/23 19:03 oxycodone [From Percocet] AdvReac upset Verified 01/05/23 19:03 stomach/off balance Family History Mother Diabetes Father Diabetes Surgical History History of appendectomy Previous section Social History household members: none Smoking Status: Former smoker how long ago did patient quit smoking: Quit cigarette tobacco in 2015, 1 ppd since teenager until quit. alcohol intake: never substance use type: does not use ROS ROS ED Constitutional Constitutional ED: Denies chills, fever(s) or sweats Eyes Eyes: Denies change in vision ENT ENT ED: Denies rhinorrhea or sore throat Cardiovascular Cardiovascular: Denies chest pain Respiratory/Chest Respiratory/Chest: Reports dyspnea and dyspnea on exertion Gastrointestinal Gastrointestinal: Denies abdominal pain, nausea or vomiting Genitourinary Genitourinary ED: Denies dysuria or hematuria Musculoskeletal Musculoskeletal: Denies arthralgias or back pain Integumentary Denies abscess or Abrasions EXAM Physical Exam Const Vital Signs: 01/05/23 19:03 01/05/23 19:23 01/05/23 19:58 Temperature 96.8 F L Temperature Source Temporal Pulse Rate 81 Respiratory Rate 18 Respiratory Effort Short of Breath Blood Pressure 112/84 H Blood Pressure Mean 93 Pulse Ox 94 Oxygen Delivery Method Room Air Nasal Cannula Oxygen Flow Rate (L/min) 33 01/05/23 20:02 01/05/23 21:01 Temperature Temperature Source Pulse Rate 77 74 Respiratory Rate 17 11 L Respiratory Effort Blood Pressure 132/53 H 128/66 H Blood Pressure Mean 79 82 Pulse Ox 95 96 Oxygen Delivery Method Nasal Cannula Oxygen Flow Rate (L/min) 3 Positive well nourished and obese Nutritional Appearance: obese HEENT Reports moist mucous membranes Eyes PERRL and EOMs intact bilaterally Resp normal respiratory effort and clear to auscultation bilaterally Auscultation: Negative for rales, rhonchi or wheezes Cardio regular rate and regular rhythm Extremity General Extremety ED: Yes edema; Negative for tenderness General Extremity: edema Neuro oriented x3 and CN's II-XII intact bilaterally Sensorium / Orientation: alert Motor Exam: strength 5/5 throughout Psych mental status grossly normal Skin no wounds MDM MDM MDM Narrative Medical decision making narrative: Patient presenting with shortness of breath, lower extremity edema and increasing abdominal size. Patient states that she is having difficulty ambulating due to her leg swelling. She had an echocardiogram which I was able to review is a done at [facility]. The echocardiogram shows an EF of 55% grade 1 left ventricular diastolic dysfunction. Right ventricle normal. There is a small to moderate circumferential pericardial effusion without tamponade physiology. I did obtain a CBC to assess white blood cell count, hemoglobin, platelets, differential. BMP to assess renal function, electrolytes, glucose, anion gap. High-sensitivity troponin and BNP were also added. EKG on my interpretation shows sinus rhythm with a ventricular rate of 74 bpm without sign of ischemic change. Chest x-ray on my interpretation shows cardiomegaly without signs of heart failure or other acute process. CBC shows no leukocytosis, hemoglobin stable at 9.8. Platelets low at 145 which appears to be chronic. High-sensitivity troponin 26. BNP 17.4. I do not believe the patient is in CHF. I counseled her that she should follow-up with her PCP. She acknowledged understanding. She states she has follow-up with cardiology upcoming. Patient stable for discharge Impression 1. Bilateral lower extremity edema 2. Dyspnea Lab Data Labs: Laboratory Results - last 24 hr 01/05/23 01/05/23 01/05/23 19:56 19:56 19:56 WBC 6.5 RBC 3.61 L Hgb 9.8 L Hct 31.9 L MCV 88.4 MCH 27.1 MCHC 30.7 L RDW Std Deviation 45.1 H RDW Coeff of Catina 14.2 Plt Count 145 L MPV 11.2 Immature Gran % (Auto) 0.600 Neut % (Auto) 69.6 Lymph % (Auto) 17.5 L [place] % (Auto) 8.2 Eos % (Auto) 3.9 Baso % (Auto) 0.2 Absolute Neuts (auto) 4.5 Absolute Lymphs (auto) 1.13 Nucleated RBC % 0 Sodium 134 L Potassium 4.2 Chloride 101 Carbon Dioxide 26.0 Anion Gap 7 BUN 44 H Creatinine 1.39 H Estim Creat Clear Calc 38.56 Est GFR (MDRD) Af Amer 50 L Est GFR (MDRD) Non-Af 42 L BUN/Creatinine Ratio 31.7 H Glucose 444 H Calcium 8.8 Troponin I High Sens 26 B-Natriuretic Peptide 17.4 Radiography Diagnostic Testing: Clinical Impression(s) from Imaging Studies Chest X-Ray 01/05/23 19:44 IMPRESSION: Limited inspiration with bibasilar atelectasis. Stable cardiomegaly. Electronically Signed: Dany Joseph DO at 20:14 EDT Reading Location ID and State: [address] [place] [address] Tel [phone], Service support , Discharge Plan Triage Chief Complaint: Shortness of Breath Other Complaint: Chest Pain ED Provider: Steven Trent Dx/Rx/DC Orders Instructions: ED Dyspnea, ED Peripheral Edema, Bilateral Prescriptions: No Action fluticasone propionate 1 SPRAY spray,suspension 2 spray NASAL QHS Label Comments: allergies gabapentin 300 mg capsule 300 mg PO QHS Label Comments: take 1 capsule by mouth at bedtime estradiol 0.01 % (0.1 mg/gram) cream 3 g VAGINAL .2X/WEEK Label Comments: insert 3 grams vaginally two times a week fenofibrate 160 mg tablet 160 mg PO DAILY Label Comments: take 1 tablet by mouth once daily Trulicity 1.5 mg/0.5 mL pen injector 1.5 mg SUBCUT JOHNSON Label Comments: inject 0.5 milliliters ( 1 AND 1/2 milligrams ) subcutaneously every week levothyroxine 175 mcg tablet 175 mcg PO DAILY Label Comments: take 1 tablet by mouth once daily ON AN EMPTY STOMACH (FOR THYROID) vitamin E 400 unit Capsule 400 unit PO DAILY omega-3 fatty acids-vitamin E 1,000 mg Capsule 1 cap PO DAILY meloxicam 15 mg tablet 15 mg PO DAILY PRN (Reason: Pain) Label Comments: take 1 tablet by mouth once daily if needed for pain with food ketorolac 0.5 % drops 1 drp ophthalmic (eye) Q6H Label Comments: instill 1 drop into left eye four times a day prednisolone acetate 1 % drops,suspension 1 drp ophthalmic (eye) Q6H Label Comments: instill 1 drop into right eye four times a day hydrochlorothiazide 12.5 mg capsule 12.5 mg PO DAILY Label Comments: take 1 capsule by mouth once daily lisinopril 2.5 mg tablet 2.5 mg PO DAILY Label Comments: take 1 tablet by mouth once daily dicyclomine 10 mg capsule 10 mg PO ACHS Label Comments: take 1 capsule by mouth four times a day before meals and at bedtime FOR ABDOMINAL PAIN rosuvastatin 10 mg tablet 10 mg PO DAILY Label Comments: take 1 tablet by mouth at bedtime insulin degludec [Tresiba FlexTouch U-100] 100 unit/mL (3 mL) insulin pen 52 unit SUBCUT QHS Label Comments: INJECT 50 UNITS SUBCUTANEOUSLY DAILY AT BEDTIME ondansetron 4 mg tablet,disintegrating 4 mg PO Q8H PRN (Reason: nausea and vomiting) Qty: 10 0RF insulin lispro [Humalog KwikPen Insulin] 100 unit/mL Insulin Pen 8 unit subcut TIDCM Qty: 0 0RF levofloxacin 500 mg tablet 500 mg PO DAILY Qty: 4 0RF Rx Instructions: start on 08/12/22 Primary Care Provider: Rebeka Rabago Referrals: Rebeka Rabago MD [Primary Care Provider] - Disposition Disposition: Home, Self Care
--- NOTE | 2023-01-05 19:44 | RAD_ITS ---
STUDY: X-RAY CHEST REASON FOR EXAM: Female, 57 years old. Chest pain. Shortness of breath. TECHNIQUE: Single AP portable view of the chest. COMPARISON: August 09, 2022. FINDINGS: Limited inspiratory effort. There is bandlike atelectasis in the left hilar region. No new infiltrates or masses. There is no demonstrated pleural abnormality. Stable cardiomegaly. Normal mediastinum and yevgeniy. Normal visualized pulmonary arteries. Normal visualized aortic arch and descending thoracic aorta. No osseous changes. Normal visualized ribs, clavicles, and shoulders. There is no demonstrated abnormality of the visualized soft tissue structures of the upper abdomen. RAD/Chest 1 View (Portable) IMPRESSION: Limited inspiration with bibasilar atelectasis. Stable cardiomegaly. Electronically Signed: Dany Joseph DO at 20:14 EDT ,
[2023-01-05 20:02] VITALS: BP 132/53; PULSE 77; RESP 17; O2SAT 95
[2023-01-05 20:03] LABS: Absolute Lymphocyte Count 1.13 X10^3/uL (0.83-4.51); Absolute Neutrophil Count 4.5 X10^3/uL (2.0-7.7); Basophil# 0.01 X10^3/uL; Basophil% 0.2 % (0-1); Eosinophil# 0.25 X10^3/uL; Eosinophils% 3.9 % (0-5); Hematocrit 31.9 % (37-47); Hemoglobin 9.8 g/dL (12.0-15.0); Lymphocyte # 1.13 X10^3/ul (0.83-4.51); Lymphocyte % 17.5 % (19-41); Mean Corp Hgb Conc 30.7 g/dL (32-36); Mean Corpuscular Hgb 27.1 pg (27.0-32.0); Mean Corpuscular Volume 88.4 fL (81-99); Mean Platelet Vol. 11.2 fl (6.2-12.0); Monocyte# 0.53 X10^3/uL; Monocyte% 8.2 % (0-10); NRBC Flagged by Analyzer 0 % (0-5); Neutrophil % 69.6 % (47-70); Platelet Count 145 K/mm3 (150-450); RBC Distribution Width CV 14.2 % (11.6-14.6); RBC Distribution Width SD 45.1 fl (35.1-43.9); Red Blood Count 3.61 M/mm3 (4.2-5.4); White Blood Count 6.5 K/mm3 (4.4-11.0)
[2023-01-05 20:21] LABS: BNP,B-Type NATRIURETIC PEPTIDE 17.4 pg/mL (0-100)
[2023-01-05 21:01] VITALS: BP 128/66; PULSE 74; RESP 11; O2SAT 96
[2023-01-05 21:08] LABS: Anion Gap 7 (5-15); BUN 44 mg/dL (7-18); BUN/Creat Ratio 31.7 RATIO (10-20); Calcium,Total 8.8 mg/dL (8.5-10.1); Chloride 101 mmol/L (98-107); Creatinine, Serum 1.39 mg/dL (0.55-1.02); EST Glomerular Filtration Rate 42 mL/min (>60); Est Glom Filt Rate - Afr Amer 50 mL/min (>60); Estimated Creatinine Clearance 38.56 ml/min; Glucose 444 mg/dL (74-106); Potassium 4.2 mmol/L (3.5-5.1); Sodium Level 134 mmol/L (136-145); Troponin-I HS 26 pg/mL (3.0-54.0)
[2023-01-05 21:38] VITALS: BP 128/66; PULSE 79; RESP 18; O2SAT 95
== END 2023-01-05 21:56 | disposition home or self-care (01) ==
PROVIDERS: Emergency Provider Student in an Organized Health Care Education/Training Program; PCP Internal Medicine; Visit Provider Student in an Organized Health Care Education/Training Program
DX: R06.00 Dyspnea, unspecified (principal); E11.9 Type 2 diabetes mellitus without complications; Z79.4 Long term (current) use of insulin; E78.00 Pure hypercholesterolemia, unspecified; R60.0 Localized edema; Z87.891 Personal history of nicotine dependence; Z79.85 Long-term (current) use of injectable non-insulin antidiabetic drugs; E03.9 Hypothyroidism, unspecified; Z79.899 Other long term (current) drug therapy; Z79.52 Long term (current) use of systemic steroids; I10 Essential (primary) hypertension
CPT/HCPCS: 71045; 80048; 83880; 84484; 85025; 93005; 99284; A4216

== ENCOUNTER 2023-04-09 19:43 | Emergency (ER) | payer MEDICAID, SELFPAY ==
[2023-04-09 19:43] VITALS: BP 109/40; PULSE 77; RESP 22; TEMP 36.8; O2SAT 92
--- NOTE | 2023-04-09 19:57 | EX.ED.DYSGE1 ---
HPI <ESAU Dias - Last Filed: 04/09/23 20:58> History of Present Illness Chief Complaint: Weakness Narrative Narrative: 57-year-old female with PMH of HTN, HLD, DM2, oxygen dependent presents with 3 days of fatigue, cough, and shortness of breath. She has required O2 since she had COVID a couple years ago and normally wears 2 L continuously. She turned herself up to 3 L today because she felt short of breath. She occasionally has chest tightness. She denies fever chills or GI symptoms. No sick contacts. She quit smoking 7 years ago. PFSH <ESAU Dias - Last Filed: 04/09/23 20:58> [facility] Medical History Anemia Chronic respiratory failure with hypoxia Elevated lipase Former tobacco use Hypercholesteremia Hypertension Hypothyroid Kidney stones Migraines Obesity Pericardial effusion Thrombocytopenia Type 2 diabetes mellitus Urinary retention UTI (urinary tract infection) Home Medications fluticasone propionate 50 mcg/actuation nasal spray,suspension 2 spray QHS nasal spray 05/24/15 [History Last Taken 03/24/21] dulaglutide 1.5 mg/0.5 mL subcutaneous pen injector (Trulicity) 1.5 mg subcut JOHNSON dm 03/25/21 [History Last Taken 03/23/21] estradiol 0.01% (0.1 mg/gram) vaginal cream 3 g vaginal .2X/WEEK health maintenance 03/25/21 [History Last Taken Unknown] fenofibrate 160 mg tablet 160 mg PO DAILY cholesterol 03/25/21 [History Last Taken 03/24/21] gabapentin 300 mg capsule 300 mg PO QHS nerve pain 03/25/21 [History Last Taken 03/24/21] levothyroxine 175 mcg tablet 175 mcg PO DAILY thyroid 03/25/21 [History Last Taken 03/24/21] omega-3 fatty acids-vitamin E 1,000 mg capsule 1 cap PO DAILY supplement 03/25/21 [History Last Taken 03/24/21] vitamin E 268 mg (400 unit) capsule 400 unit PO DAILY supplement 03/25/21 [History Last Taken 03/24/21] dicyclomine 10 mg capsule 10 mg PO ACHS abdominal pain 07/06/21 [History Last Taken Unknown] hydrochlorothiazide 12.5 mg capsule 12.5 mg PO DAILY diuretic 07/06/21 [History Last Taken Unknown] insulin degludec 100 unit/mL (3 mL) subcutaneous pen (Tresiba FlexTouch U-100 insulin) 52 unit subcut QHS diabetes 07/06/21 [History Last Taken Unknown] ketorolac 0.5 % eye drops 1 drp ophthalmic (eye) Q6H eye 07/06/21 [History Last Taken Unknown] lisinopril 2.5 mg tablet 2.5 mg PO DAILY blood pressure 07/06/21 [History Last Taken Unknown] meloxicam 15 mg tablet 15 mg PO DAILY PRN Pain 07/06/21 [History Last Taken Unknown] ondansetron 4 mg disintegrating tablet 4 mg PO Q8H PRN nausea and vomiting #10 tabs 07/06/21 [Rx Last Taken Unknown] prednisolone acetate 1 % eye drops,suspension 1 drp ophthalmic (eye) Q6H eye 07/06/21 [History Last Taken Unknown] rosuvastatin 10 mg tablet 10 mg PO DAILY cholesterol 07/06/21 [History Last Taken Unknown] insulin lispro 100 unit/mL subcutaneous pen (Humalog KwikPen (U-100) Insulin) 8 unit (0.08 mL) subcut TIDCM #0 mL 07/21/21 [Rx Last Taken Unknown] levofloxacin 500 mg tablet 500 mg PO DAILY #4 tabs 08/11/22 [Rx Last Taken Unknown] Allergy/AdvReac Type Severity Reaction Status Date / Time metformin AdvReac Diarrhea Verified 04/09/23 19:43 oxycodone [From Percocet] AdvReac upset Verified 04/09/23 19:43 stomach/off balance Family History Mother Diabetes Father Diabetes Surgical History History of appendectomy Previous section Social History household members: none Smoking Status: Former smoker how long ago did patient quit smoking: Quit cigarette tobacco in 2014, 1 ppd since teenager until quit. alcohol intake: never substance use type: does not use ROS <ESAU Dias - Last Filed: 04/09/23 20:58> ROS ED ROS Narrative Constitutional: Positive for malaise. Negative for fever, chills. Eyes: Negative for visual change. ENT: Positive for rhinorrhea. CVS: Negative for palpitations, syncope. Respiratory: Positive for shortness of breath, cough. GI: Negative for abdominal pain, nausea, vomiting, diarrhea. : Negative for dysuria. Neuro: Negative for headache. Skin: Negative for rash. EXAM <ESAU Dias - Last Filed: 04/09/23 20:58> Physical Exam Narrative Exam Narrative: CONST: Patient sitting in no acute distress. EYES: Normal inspection. ENT: Normal inspection, moist mucous membranes. NECK: Normal inspection. RESP: Slightly tachypneic at 24/min, CTAB. No retractions. CVS: Regular rate and rhythm, no murmur, no gallop. ABD: Soft and nontender, no guarding or rebound, nondistended. SKIN: Color normal, no rash, warm, dry, intact. EXTREMITIES: Normal appearance, 2+ bilateral ankle edema. NEURO: Oriented x4. PSYCH: Normal affect. Const Vital Signs: 04/09/23 19:43 04/09/23 20:20 04/09/23 20:44 Temperature 98.2 F Temperature Source Temporal Pulse Rate 77 79 81 Respiratory Rate 22 H 14 12 Blood Pressure 109/40 L 89/48 L 94/54 L Blood Pressure Mean 63 61 67 Pulse Ox 92 96 96 Oxygen Delivery Method Nasal Cannula Nasal Cannula Nasal Cannula Oxygen Flow Rate (L/min) 3 4 4 04/09/23 20:08 Temperature Temperature Source Pulse Rate 73 Respiratory Rate 18 Blood Pressure Blood Pressure Mean Pulse Ox Oxygen Delivery Method Oxygen Flow Rate (L/min) <Dr. Tavo Son DO - Last Filed: 04/09/23 21:53> Physical Exam Const Vital Signs: 04/09/23 19:43 04/09/23 20:20 04/09/23 20:44 Temperature 98.2 F Temperature Source Temporal Pulse Rate 77 79 81 Respiratory Rate 22 H 14 12 Blood Pressure 109/40 L 89/48 L 94/54 L Blood Pressure Mean 63 61 67 Pulse Ox 92 96 96 Oxygen Delivery Method Nasal Cannula Nasal Cannula Nasal Cannula Oxygen Flow Rate (L/min) 3 4 4 04/09/23 20:08 Temperature Temperature Source Pulse Rate 73 Respiratory Rate 18 Blood Pressure Blood Pressure Mean Pulse Ox Oxygen Delivery Method Oxygen Flow Rate (L/min) [facility] <ESAU Dias - Last Filed: 04/09/23 20:58> [facility] Narrative Medical decision making narrative: Patient was evaluated for recent fatigue, cough, and shortness of breath. She appears ill but nontoxic. Respiratory rate is 22, she is 92% on 3 L (baseline wears 2 L), otherwise normal vital signs. During my examination she is mildly tachypneic between 22 to 24 breaths a minute. Her heart sounds regular with no murmurs and lungs are clear. She has 2+ symmetric ankle edema which she states is chronic. Labs and CXR were ordered to rule out pneumonia, CHF, ACS among other possibilities. Lab Data Attestation: I reviewed the patient's lab results. Labs: Laboratory Results - last 24 hr 04/09/23 04/09/23 04/09/23 20:08 20:08 20:54 WBC Cancelled 8.1 Corrected WBC Cancelled RBC Cancelled 3.94 L Hgb Cancelled 10.9 L Hct Cancelled 34.2 L MCV Cancelled 86.8 MCH Cancelled 27.7 MCHC Cancelled 31.9 L RDW Std Deviation Cancelled 48.0 H RDW Coeff of Catina Cancelled 15.1 H Plt Count Cancelled 151 MPV Cancelled 11.8 Immature Gran % (Auto) Cancelled 0.200 Neut % (Auto) Cancelled 57.0 Lymph % (Auto) Cancelled 33.8 Trigg % (Auto) Cancelled 6.7 Eos % (Auto) Cancelled 2.1 Baso % (Auto) Cancelled 0.2 Absolute Neuts (auto) Cancelled 4.6 Absolute Lymphs (auto) Cancelled 2.73 Total Counted Cancelled Neutrophils % (Manual) Cancelled Band Neutrophils % Cancelled Lymphocytes % (Manual) Cancelled Monocytes % (Manual) Cancelled Eosinophils % (Manual) Cancelled Basophils % (Manual) Cancelled Metamyelocytes % Cancelled Myelocytes % Cancelled Promyelocytes % Cancelled Blast Cells % Cancelled Plasma Cell % (Manual) Cancelled Other Cells % Cancelled Nucleated RBC % Cancelled 0 Nucleated RBCs/100 WBC Cancelled Differential Comment Cancelled Diff Path Review Cancelled Hypersegmented Neuts Cancelled Atypical Lymphocytes Cancelled Reactive Lymphocytes Cancelled Smudge Cells Cancelled Toxic Granulation Cancelled Toxic Vacuolation Cancelled Dohle Bodies Cancelled Serge Rods Cancelled Platelet Estimate Cancelled Plt Morphology Comment Cancelled RBC Morphology Cancelled Cancelled Polychromasia Cancelled Hypochromasia Cancelled Poikilocytosis Cancelled Basophilic Stippling Cancelled Anisocytosis Cancelled Microcytosis Cancelled Macrocytosis Cancelled Spherocytes Cancelled Sickle Cells Cancelled Target Cells Cancelled Tear Drop Cells Cancelled Ovalocytes Cancelled Stomatocytes Cancelled [place] Bodies Cancelled [place] Cells Cancelled Bite Cells Cancelled Crenated Cell Cancelled Acanthocytes (Spur) Cancelled Rouleaux Cancelled Schistocytes Cancelled Sodium 133 L Potassium 4.8 Chloride 98 Carbon Dioxide 28.0 Anion Gap 7 BUN 55 H Creatinine 1.77 H Est GFR (MDRD) Af Amer 38 L Est GFR (MDRD) Non-Af 31 L BUN/Creatinine Ratio 31.1 H Glucose 446 H Calcium 9.6 Troponin I High Sens 37 B-Natriuretic Peptide Cancelled 6.7 Radiography Diagnostic Testing: Clinical Impression(s) from Imaging Studies Chest X-Ray 04/09/23 20:25 IMPRESSION: 1. Poor inspiration with some bibasilar atelectasis. 2. Cardiomegaly. Electronically Signed: Man Staton MD at 20:50 EDT , <Dr. Tavo Son, DO - Last Filed: 04/09/23 21:53> [facility] Lab Data Labs: Laboratory Results - last 24 hr 04/09/23 04/09/23 04/09/23 20:08 20:08 20:54 WBC Cancelled 8.1 Corrected WBC Cancelled RBC Cancelled 3.94 L Hgb Cancelled 10.9 L Hct Cancelled 34.2 L MCV Cancelled 86.8 MCH Cancelled 27.7 MCHC Cancelled 31.9 L RDW Std Deviation Cancelled 48.0 H RDW Coeff of Catina Cancelled 15.1 H Plt Count Cancelled 151 MPV Cancelled 11.8 Immature Gran % (Auto) Cancelled 0.200 Neut % (Auto) Cancelled 57.0 Lymph % (Auto) Cancelled 33.8 Trigg % (Auto) Cancelled 6.7 Eos % (Auto) Cancelled 2.1 Baso % (Auto) Cancelled 0.2 Absolute Neuts (auto) Cancelled 4.6 Absolute Lymphs (auto) Cancelled 2.73 Total Counted Cancelled Neutrophils % (Manual) Cancelled Band Neutrophils % Cancelled Lymphocytes % (Manual) Cancelled Monocytes % (Manual) Cancelled Eosinophils % (Manual) Cancelled Basophils % (Manual) Cancelled Metamyelocytes % Cancelled Myelocytes % Cancelled Promyelocytes % Cancelled Blast Cells % Cancelled Plasma Cell % (Manual) Cancelled Other Cells % Cancelled Nucleated RBC % Cancelled 0 Nucleated RBCs/100 WBC Cancelled Differential Comment Cancelled Diff Path Review Cancelled Hypersegmented Neuts Cancelled Atypical Lymphocytes Cancelled Reactive Lymphocytes Cancelled Smudge Cells Cancelled Toxic Granulation Cancelled Toxic Vacuolation Cancelled Dohle Bodies Cancelled Serge Rods Cancelled Platelet Estimate Cancelled Plt Morphology Comment Cancelled RBC Morphology Cancelled Cancelled Polychromasia Cancelled Hypochromasia Cancelled Poikilocytosis Cancelled Basophilic Stippling Cancelled Anisocytosis Cancelled Microcytosis Cancelled Macrocytosis Cancelled Spherocytes Cancelled Sickle Cells Cancelled Target Cells Cancelled Tear Drop Cells Cancelled Ovalocytes Cancelled Stomatocytes Cancelled [place] Bodies Cancelled Kinsey Cells Cancelled Bite Cells Cancelled Crenated Cell Cancelled Acanthocytes (Spur) Cancelled Rouleaux Cancelled Schistocytes Cancelled Sodium 133 L Potassium 4.8 Chloride 98 Carbon Dioxide 28.0 Anion Gap 7 BUN 55 H Creatinine 1.77 H Est GFR (MDRD) Af Amer 38 L Est GFR (MDRD) Non-Af 31 L BUN/Creatinine Ratio 31.1 H Glucose 446 H Calcium 9.6 Troponin I High Sens 37 B-Natriuretic Peptide Cancelled 6.7 Radiography Diagnostic Testing: Clinical Impression(s) from Imaging Studies Chest X-Ray 04/09/23 20:25 IMPRESSION: 1. Poor inspiration with some bibasilar atelectasis. 2. Cardiomegaly. Electronically Signed: Man Staton MD at 20:50 EDT , Treatment and Re-Evaluation :: I have personally performed a face to face assessment of the patient and have reviewed the BINA Note. I performed a substantive portion of the visit including all aspects of the following. My fontanez findings include: History: Patient presents with shortness of breath and weakness that has been getting worse over the past few days. Patient is on home oxygen at 2 L nasal cannula. Patient states she has had to increase this to 3 L at home. Patient denies any fevers or chills. Patient denies any chest pain. Patient does admit to some increased swelling in her ankles Exam: Vital signs are stable. Patient is afebrile. Patient is in no acute distress. Oral mucosa is pink and moist. Neck is supple. Trachea is midline. There is no JVD noted. Heart was regular rate and rhythm. Lungs are diminished bilaterally. There is good respiratory effort noted. Abdomen is soft. Bowel sounds are normal. There is mild diffuse tenderness. There is no rebound or guarding noted. Cranial nerves II through XII are intact. There are no focal motor or sensory deficits noted. Medical Decision Making: Differential diagnosis includes pneumonia, congestive heart failure, cardiac dysrhythmia, cardiac ischemia, pneumothorax, and anxiety. EKG will be obtained to assess for cardiac dysrhythmia and cardiac ischemia. Chest x-ray will be obtained to assess for pneumonia and pneumothorax. CBC will be obtained to assess for leukocytosis and anemia. Basic metabolic profile will be obtained to assess for electrolyte abnormality and renal function. BNP will be obtained to assess for congestive heart failure. High-sensitivity troponin will be obtained to assess for cardiac ischemia. COVID-19 rapid antigen will be obtained to assess for COVID-19 infection. Influenza A and influenza B antigens will be obtained to assess for influenza infection. Patient was given a DuoNeb aerosol here. EKG was obtained. On my independent interpretation, it shows a normal sinus rhythm with a rate of 81. ND interval was normal at 170 ms. QRS interval was normal at 100 ms. QTc interval was normal at 466 ms. Marion was normal at -7. There are no acute ST or T wave changes noted. PA and lateral chest x-ray was obtained. There are 2 views. On my independent interpretation, lung carrera are clear. There is normal cardiac silhouette. Bony thorax is normal. There is no acute process noted. Radiologist also interpreted the x-ray and agrees. Basic metabolic profile was reviewed. Creatinine was slightly elevated at 1.77 and BUN was 55. These are consistent with prior results. Glucose was elevated at 446. Anion gap was normal. CO2 was normal. High-sensitivity troponin was reviewed and was normal at 37. BNP was reviewed and was normal at 6.7. Patient was advised of her findings. Patient was instructed to follow-up with her primary care physician in 5 to 7 days. Patient was instructed return if worse in any way. Patient understood and was agreeable with the plan. All questions were answered. Discharge Plan Triage Chief Complaint: Weakness ED Midlevel Provider: Taylor Nassar ED Provider: Tavo Son Dx/Rx/DC Orders Clinical Impression: Dyspnea Instructions: ED Dyspnea Prescriptions: No Action fluticasone propionate 1 SPRAY spray,suspension 2 spray NASAL QHS Patient Comments: allergies gabapentin 300 mg capsule 300 mg PO QHS Patient Comments: take 1 capsule by mouth at bedtime estradiol 0.01 % (0.1 mg/gram) cream 3 g VAGINAL .2X/WEEK Patient Comments: insert 3 grams vaginally two times a week fenofibrate 160 mg tablet 160 mg PO DAILY Patient Comments: take 1 tablet by mouth once daily Trulicity 1.5 mg/0.5 mL pen injector 1.5 mg SUBCUT JOHNSON Patient Comments: inject 0.5 milliliters ( 1 AND 1/2 milligrams ) subcutaneously every week levothyroxine 175 mcg tablet 175 mcg PO DAILY Patient Comments: take 1 tablet by mouth once daily ON AN EMPTY STOMACH (FOR THYROID) vitamin E 400 unit Capsule 400 unit PO DAILY omega-3 fatty acids-vitamin E 1,000 mg Capsule 1 cap PO DAILY meloxicam 15 mg tablet 15 mg PO DAILY PRN (Reason: Pain) Patient Comments: take 1 tablet by mouth once daily if needed for pain with food ketorolac 0.5 % drops 1 drp ophthalmic (eye) Q6H Patient Comments: instill 1 drop into left eye four times a day prednisolone acetate 1 % drops,suspension 1 drp ophthalmic (eye) Q6H Patient Comments: instill 1 drop into right eye four times a day hydrochlorothiazide 12.5 mg capsule 12.5 mg PO DAILY Patient Comments: take 1 capsule by mouth once daily lisinopril 2.5 mg tablet 2.5 mg PO DAILY Patient Comments: take 1 tablet by mouth once daily dicyclomine 10 mg capsule 10 mg PO ACHS Patient Comments: take 1 capsule by mouth four times a day before meals and at bedtime FOR ABDOMINAL PAIN rosuvastatin 10 mg tablet 10 mg PO DAILY Patient Comments: take 1 tablet by mouth at bedtime insulin degludec [Tresiba FlexTouch U-100] 100 unit/mL (3 mL) insulin pen 52 unit SUBCUT QHS Patient Comments: INJECT 50 UNITS SUBCUTANEOUSLY DAILY AT BEDTIME ondansetron 4 mg tablet,disintegrating 4 mg PO Q8H PRN (Reason: nausea and vomiting) Qty: 10 0RF insulin lispro [Humalog KwikPen Insulin] 100 unit/mL Insulin Pen 8 unit subcut TIDCM Qty: 0 0RF levofloxacin 500 mg tablet 500 mg PO DAILY Qty: 4 0RF Rx Instructions: start on 08/12/22 Primary Care Provider: Rebeka Rabago Referrals: Rebeka Rabago MD [Primary Care Provider] - 3-5 Days Disposition Disposition: Home, Self Care
[2023-04-09] MEDS: Ipratropium/Albuterol Sulfate 3 ML AMPUL.NEB INHALATION (20:07)
[2023-04-09 20:08] VITALS: PULSE 73; RESP 18
[2023-04-09 20:20] VITALS: BP 89/48; PULSE 79; RESP 14; O2SAT 96
--- NOTE | 2023-04-09 20:25 | RAD_ITS ---
STUDY: X-RAY CHEST REASON FOR EXAM: Female, 57 years old. cough TECHNIQUE: PA and lateral views of the chest. COMPARISON: 01/05/2023 FINDINGS: Poor inspiration with some bibasilar atelectasis. There is no demonstrated pleural abnormality. There is moderate cardiac enlargement. Normal mediastinum and yevgeniy. Normal visualized pulmonary arteries. Normal visualized aortic arch and descending thoracic aorta. Normal visualized thoracic spine. Normal visualized ribs, clavicles, and shoulders. There is no demonstrated abnormality of the visualized soft tissue structures of the upper abdomen. RAD/Chest PA and Lateral IMPRESSION: 1. Poor inspiration with some bibasilar atelectasis. 2. Cardiomegaly. Electronically Signed: Man Staton MD at 20:50 EDT ,
[2023-04-09 20:40] LABS: Anion Gap 7 (5-15); BUN 55 mg/dL (7-18); BUN/Creat Ratio 31.1 RATIO (10-20); Calcium,Total 9.6 mg/dL (8.5-10.1); Chloride 98 mmol/L (98-107); Creatinine, Serum 1.77 mg/dL (0.55-1.02); EST Glomerular Filtration Rate 31 mL/min (>60); Est Glom Filt Rate - Afr Amer 38 mL/min (>60); Glucose 446 mg/dL (74-106); Potassium 4.8 mmol/L (3.5-5.1); Sodium Level 133 mmol/L (136-145); Troponin-I HS 37 pg/mL (3.0-54.0)
--- NOTE | 2023-04-09 20:42 | EKG12_ITS ---
Test Reason : SOB Blood Pressure : / mmHG Vent. Rate : 081 BPM Atrial Rate : 081 BPM P-R Int : 170 ms QRS Dur : 100 ms QT Int : 402 ms P-R-T Axes : 020 -07 026 degrees QTc Int : 466 ms Normal sinus rhythm Cannot rule out Anterior infarct , age undetermined Abnormal ECG Confirmed by MIQUEL DUNNE, LYLY ([id number]), metropolitan editor ALICJA DE LA PAZ ([id number]) on 04/12/2023 1:23:27 PM Referred By: Confirmed By:JOHNNIE LAFLEUR MD
[2023-04-09 20:44] VITALS: BP 94/54; PULSE 81; RESP 12; O2SAT 96
[2023-04-09] MEDS: 0.9% Normal Saline 1,000 ML 999 ML IV (20:48)
[2023-04-09 21:03] LABS: Absolute Lymphocyte Count 2.73 X10^3/uL (0.83-4.51); Absolute Neutrophil Count 4.6 X10^3/uL (2.0-7.7); Basophil# 0.02 X10^3/uL; Basophil% 0.2 % (0-1); Eosinophil# 0.17 X10^3/uL; Eosinophils% 2.1 % (0-5); Hematocrit 34.2 % (37-47); Hemoglobin 10.9 g/dL (12.0-15.0); Lymphocyte # 2.73 X10^3/ul (0.83-4.51); Lymphocyte % 33.8 % (19-41); Mean Corp Hgb Conc 31.9 g/dL (32-36); Mean Corpuscular Hgb 27.7 pg (27.0-32.0); Mean Corpuscular Volume 86.8 fL (81-99); Mean Platelet Vol. 11.8 fl (6.2-12.0); Monocyte# 0.54 X10^3/uL; Monocyte% 6.7 % (0-10); NRBC Flagged by Analyzer 0 % (0-5); Platelet Count 151 K/mm3 (150-450); RBC Distribution Width CV 15.1 % (11.6-14.6); Red Blood Count 3.94 M/mm3 (4.2-5.4); White Blood Count 8.1 K/mm3 (4.4-11.0)
[2023-04-09 21:26] LABS: BNP,B-Type NATRIURETIC PEPTIDE 6.7 pg/mL (0-100)
[2023-04-09 21:54] VITALS: BP 93/67; PULSE 81; RESP 23
== END 2023-04-09 23:05 | disposition home or self-care (01) ==
PROVIDERS: Physician Assistant; Emergency Provider Emergency Medicine; PCP Internal Medicine; Visit Provider Emergency Medicine
DX: R06.00 Dyspnea, unspecified (principal); E11.9 Type 2 diabetes mellitus without complications; Z79.4 Long term (current) use of insulin; Z87.891 Personal history of nicotine dependence; E78.00 Pure hypercholesterolemia, unspecified; I10 Essential (primary) hypertension; Z79.899 Other long term (current) drug therapy; Z79.51 Long term (current) use of inhaled steroids; Z79.85 Long-term (current) use of injectable non-insulin antidiabetic drugs; E03.9 Hypothyroidism, unspecified; Z99.81 Dependence on supplemental oxygen; Z90.49 Acquired absence of other specified parts of digestive tract
CPT/HCPCS: 71046; 80048; 83880; 84484; 85025; 87428; 93005; 94640; 96360; 99282; J7030; A4216

== ENCOUNTER 2023-08-12 14:39 | Emergency (ER) | payer MEDICAID, SELFPAY ==
[2023-08-12] VITALS (9 sets, daily range): BP systolic 85–116; BP diastolic 35–86; PULSE 65–70; RESP 10–18; TEMP 35.6; O2SAT 96–100
--- NOTE | 2023-08-12 14:48 | EKG12_ITS ---
Test Reason : CP Blood Pressure : / mmHG Vent. Rate : 068 BPM Atrial Rate : 068 BPM P-R Int : 176 ms QRS Dur : 100 ms QT Int : 434 ms P-R-T Axes : 014 -02 030 degrees QTc Int : 461 ms Normal sinus rhythm Normal ECG Confirmed by MIQUEL DUNNE, LYLY ([id number]), film and video editor JESSICA VILLA ([id number]) on 08/16/2023 8:16:45 AM Referred By: JOSEPH/JOSE Confirmed By:JOHNNIE LAFLEUR MD
--- NOTE | 2023-08-12 15:40 | RAD_ITS ---
EXAM: XR CHEST, 1 VIEW CLINICAL INDICATION: chest pain TECHNIQUE: Frontal view of the chest. COMPARISON: 04/09/2023 FINDINGS: LUNGS AND PLEURAL SPACES: There is minimal linear atelectasis in the mid left lung. No pneumothorax. No effusion. HEART: Unremarkable. Cardiac silhouette not enlarged. MEDIASTINUM: Central airways and mediastinal contour are unremarkable. BONES/JOINTS: Unremarkable. SOFT TISSUES: Unremarkable. RAD/Chest 1 View (Portable) IMPRESSION: Minimal linear atelectasis or scar in the mid left lung. There is no focal consolidation. Electronically Signed: Matt Tran MD at 16:52 EST ,
--- NOTE | 2023-08-12 15:41 | EDS_ITS ---
HPI History of Present Illness Chief Complaint: Chest Pain Informant: patient Narrative Narrative: Patient complains of anterior chest pain. Patient states that this morning she woke up at about 930. She has had kind of an ache or heaviness in the front of her chest since then. She states she has a little aching in her arms. No radiation to the back but she has some chronic lumbar pain that is unchanged. She states that she has some mild chronic dyspnea but it does not seem to be changed at all with this. She is on oxygen due to pulmonary injury after having COVID a couple times. But she has not been coughing or having new pulmonary symptoms. She has never had any heart disease she states. No known cardiomyopathy, cardiovascular disease or rhythm dysfunction. She states sometimes she does get chest pain from scarring from COVID but does not think it is like this. She states the pain is constant. It is worse if you press on the area. No fevers. Not lightheaded or presyncopal. Patient states she gets aches in other areas like her legs but she does not know if that is from her diabetic neuropathy. I also found out that she is on hydrochlorothiazide all the time. But she was just recently placed on a short course of Lasix because she had a little bit more swelling in her legs and ankles. It was equal. She is not sure of the dose. [facility] Medical History Anemia Chronic respiratory failure with hypoxia Elevated lipase Former tobacco use Hypercholesteremia Hypertension Hypothyroid Kidney stones Migraines Obesity Pericardial effusion Thrombocytopenia Type 2 diabetes mellitus Urinary retention UTI (urinary tract infection) Home Medications fluticasone propionate 50 mcg/actuation nasal spray,suspension 2 spray QHS nasal spray 05/24/15 [History Last Taken 03/24/21] dulaglutide 1.5 mg/0.5 mL subcutaneous pen injector (Trulicity) 1.5 mg subcut JOHNSON dm 03/25/21 [History Last Taken 03/23/21] estradiol 0.01% (0.1 mg/gram) vaginal cream 3 g vaginal .2X/WEEK health maintenance 03/25/21 [History Last Taken Unknown] fenofibrate 160 mg tablet 160 mg PO DAILY cholesterol 03/25/21 [History Last Taken 03/24/21] gabapentin 300 mg capsule 300 mg PO QHS nerve pain 03/25/21 [History Last Taken 03/24/21] levothyroxine 175 mcg tablet 175 mcg PO DAILY thyroid 03/25/21 [History Last Taken 03/24/21] omega-3 fatty acids-vitamin E 1,000 mg capsule 1 cap PO DAILY supplement 03/25/21 [History Last Taken 03/24/21] vitamin E 268 mg (400 unit) capsule 400 unit PO DAILY supplement 03/25/21 [History Last Taken 03/24/21] dicyclomine 10 mg capsule 10 mg PO ACHS abdominal pain 07/06/21 [History Last Taken Unknown] hydrochlorothiazide 12.5 mg capsule 12.5 mg PO DAILY diuretic 07/06/21 [History Last Taken Unknown] insulin degludec 100 unit/mL (3 mL) subcutaneous pen (Tresiba FlexTouch U-100 insulin) 52 unit subcut QHS diabetes 07/06/21 [History Last Taken Unknown] ketorolac 0.5 % eye drops 1 drp ophthalmic (eye) Q6H eye 07/06/21 [History Last Taken Unknown] lisinopril 2.5 mg tablet 2.5 mg PO DAILY blood pressure 07/06/21 [History Last Taken Unknown] meloxicam 15 mg tablet 15 mg PO DAILY PRN Pain 07/06/21 [History Last Taken Unknown] ondansetron 4 mg disintegrating tablet 4 mg PO Q8H PRN nausea and vomiting #10 tabs 07/06/21 [Rx Last Taken Unknown] prednisolone acetate 1 % eye drops,suspension 1 drp ophthalmic (eye) Q6H eye 07/06/21 [History Last Taken Unknown] rosuvastatin 10 mg tablet 10 mg PO DAILY cholesterol 07/06/21 [History Last Taken Unknown] insulin lispro 100 unit/mL subcutaneous pen (Humalog KwikPen (U-100) Insulin) 8 unit (0.08 mL) subcut TIDCM #0 mL 07/21/21 [Rx Last Taken Unknown] levofloxacin 500 mg tablet 500 mg PO DAILY #4 tabs 08/11/22 [Rx Last Taken Unknown] Allergy/AdvReac Type Severity Reaction Status Date / Time metformin AdvReac Diarrhea Verified 08/12/23 14:39 oxycodone [From Percocet] AdvReac upset Verified 08/12/23 14:39 stomach/off balance Family History Mother Diabetes Father Diabetes Surgical History History of appendectomy Previous section Social History household members: none Smoking Status: Former smoker how long ago did patient quit smoking: Quit cigarette tobacco in 2015, 1 ppd since teenager until quit. alcohol intake: never substance use type: does not use ROS ROS ED ROS Narrative A complete review of systems was performed and is negative except as documented in the history of present illness. Some specific details below. Constitutional: No recent fevers or chills. No malaise. EYE: No discharge, visual complaints, or pain. ENT: No difficulty swallowing. No swelling. No pain. No reflux symptoms. CV: See history of present illness. Respiratory: See history of present illness. Chronic breathing problems but no change. She is on 2 L all the time. GI: No abdominal pain. No nausea vomiting diarrhea. No blood in stool. : No frequency dysuria or hematuria. Musculoskeletal: No recent trauma. No pains. No swelling. It sounds like she had some ankle swelling somewhere recently but was placed on Lasix for unknown dose an unknown period of time and it has improved. Denies history of DVT or PE. Skin: No rash. Nondiaphoretic. Neuro: No weakness or numbness. Endocrine: No polyuria or polydipsia. EXAM Physical Exam Narrative Exam Narrative: CONSTITUTIONAL: Patient is nontoxic in appearance. The patient looks comfortable. Work of breathing looks normal. HEENT: No notable trauma. Mucous membranes moist. No sinus tenderness. No indication of pain with swallowing. EYES: No conjunctival injection. No pallor. NECK:No JVD. No stridor. CARDIOVASCULAR: Regular rate. Regular rhythm. No notable murmur. No JVD. RESPIRATORY: No respiratory distress. Breathing is unlabored. No wheezes. No rho nchi. No rales. No pain with a deep breath. No chest wall tenderness. Her saturations are 98 to 100% on her 2 L oxygen which is her normal. This is showing no hypoxia at her FiO2. GASTROINTESTINAL: Not distended. Bowel sounds are normal. No tenderness. No guarding. No rebound. No palpable mass. No bruit is heard. GENITOURINARY: No tenderness over the bladder. No CVA tenderness. MUSCULOSKELETAL: Atraumatic. Trace ankle/peripheral edema. Patient states this is normal. No cord. No tenderness along the deep venous system. No asymmetry. No distended veins. NEUROLOGICAL: Patient is alert and appropriate. No focal deficit noted. SKIN: No noted rashes. No diaphoresis. PSYCHIATRIC: Patient is calm. Mood is appropriate. Const Vital Signs: 08/12/23 14:40 08/12/23 14:47 08/12/23 14:59 Temperature 96.1 F L Temperature Source Temporal Pulse Rate 70 Respiratory Rate 14 Blood Pressure 85/35 L 85/41 L 109/52 L Blood Pressure Mean 51 55 71 Pulse Ox 97 Oxygen Delivery Method Nasal Cannula Oxygen Flow Rate (L/min) 2 08/12/23 15:34 08/12/23 16:37 08/12/23 17:00 Temperature Temperature Source Pulse Rate 67 67 Respiratory Rate 10 L 10 L Blood Pressure 88/69 L 91/56 L Blood Pressure Mean 75 67 Pulse Ox 100 96 98 Oxygen Delivery Method Nasal Cannula Nasal Cannula Room Air Oxygen Flow Rate (L/min) 2 2 08/12/23 18:00 08/12/23 19:08 08/12/23 20:56 Temperature Temperature Source Pulse Rate 65 Respiratory Rate 18 Blood Pressure 101/61 93/56 L 116/86 H Blood Pressure Mean 74 68 96 Pulse Ox Oxygen Delivery Method Oxygen Flow Rate (L/min) Heart Score History: Slightly/Non-Suspicious ECG: Normal Age: >45 - <65 years Risk Factors: >/= 3 Risk Factors or History of CAD Troponin: </= Normal Limit Score: 3 MDM MDM MDM Narrative Medical decision making narrative: Patient CBC shows normal white count minimally low hemoglobin and normal platelets. Electrolytes showed slight elevation of glucose minimal elevation in creatinine and minimally low sodium. But none of these were large changes. Patient's troponin is negative. Repeat is negative. [place] Patient's blood pressure here was quite variable. She would vary between 80s and about 115. But the patient had an IV in her right arm. She has a continuous glucose monitor on her left upper arm. So blood pressures were being taken off of her left forearm and wrist area. This is why we did the lactate. She has no symptoms of low blood pressure. When I look over her blood pressures in the past she has amazing variability hour to an hour. I think with no symptoms, bounding peripheral pulses, difficult to check blood pressure due to cuff position, normal lactate I do not think this is an acute issue. Patient has had soreness in her anterior chest all day. She is not short of breath different than normal. She is not hypoxic on her oxygen. No pleuritic pain. No hemoptysis. No new leg pain or swelling. I do not think this represents PE. Lab Data Attestation: I reviewed the patient's lab results. Labs: Laboratory Results - last 24 hr 08/12/23 08/12/23 08/12/23 15:30 15:30 16:05 WBC Cancelled 7.2 Corrected WBC Cancelled RBC Cancelled 3.98 L Hgb Cancelled 11.1 L Hct Cancelled 35.4 L MCV Cancelled 88.9 MCH Cancelled 27.9 MCHC Cancelled 31.4 L RDW Std Deviation Cancelled 45.9 H RDW Coeff of Catina Cancelled 14.3 Plt Count Cancelled 166 MPV Cancelled 11.1 Immature Gran % (Auto) Cancelled 0.600 Neut % (Auto) Cancelled 63.8 Lymph % (Auto) Cancelled 21.5 Crane % (Auto) Cancelled 10.6 H Eos % (Auto) Cancelled 3.1 Baso % (Auto) Cancelled 0.4 Absolute Neuts (auto) Cancelled 4.6 Absolute Lymphs (auto) Cancelled 1.54 Total Counted Cancelled Neutrophils % (Manual) Cancelled Band Neutrophils % Cancelled Lymphocytes % (Manual) Cancelled Monocytes % (Manual) Cancelled Eosinophils % (Manual) Cancelled Basophils % (Manual) Cancelled Metamyelocytes % Cancelled Myelocytes % Cancelled Promyelocytes % Cancelled Blast Cells % Cancelled Plasma Cell % (Manual) Cancelled Other Cells % Cancelled Nucleated RBC % Cancelled 0 Nucleated RBCs/100 WBC Cancelled Differential Comment Cancelled Diff Path Review Cancelled Hypersegmented Neuts Cancelled Atypical Lymphocytes Cancelled Reactive Lymphocytes Cancelled Smudge Cells Cancelled Toxic Granulation Cancelled Toxic Vacuolation Cancelled Dohle Bodies Cancelled Serge Rods Cancelled Platelet Estimate Cancelled Plt Morphology Comment Cancelled RBC Morphology Cancelled Cancelled Polychromasia Cancelled Hypochromasia Cancelled Poikilocytosis Cancelled Basophilic Stippling Cancelled Anisocytosis Cancelled Microcytosis Cancelled Macrocytosis Cancelled Spherocytes Cancelled Sickle Cells Cancelled Target Cells Cancelled Tear Drop Cells Cancelled Ovalocytes Cancelled Stomatocytes Cancelled [place] Bodies Cancelled Kinsey Cells Cancelled Bite Cells Cancelled Crenated Cell Cancelled Acanthocytes (Spur) Cancelled Rouleaux Cancelled Schistocytes Cancelled Sodium 135 L Potassium 4.4 Chloride 101 Carbon Dioxide 29.0 Anion Gap 5 BUN 46 H Creatinine 1.47 H Est GFR (MDRD) Af Amer 47 L Est GFR (MDRD) Non-Af 39 L BUN/Creatinine Ratio 31.3 H Glucose 251 H Lactic Acid Calcium 9.6 Troponin I High Sens 27 08/12/23 08/12/23 16:37 17:51 WBC Corrected WBC RBC Hgb Hct MCV MCH MCHC RDW Std Deviation RDW Coeff of Catina Plt Count MPV Immature Gran % (Auto) Neut % (Auto) Lymph % (Auto) Crane % (Auto) Eos % (Auto) Baso % (Auto) Absolute Neuts (auto) Absolute Lymphs (auto) Total Counted Neutrophils % (Manual) Band Neutrophils % Lymphocytes % (Manual) Monocytes % (Manual) Eosinophils % (Manual) Basophils % (Manual) Metamyelocytes % Myelocytes % Promyelocytes % Blast Cells % Plasma Cell % (Manual) Other Cells % Nucleated RBC % Nucleated RBCs/100 WBC Differential Comment Diff Path Review Hypersegmented Neuts Atypical Lymphocytes Reactive Lymphocytes Smudge Cells Toxic Granulation Toxic Vacuolation Dohle Bodies Serge Rods Platelet Estimate Plt Morphology Comment RBC Morphology Polychromasia Hypochromasia Poikilocytosis Basophilic Stippling Anisocytosis Microcytosis Macrocytosis Spherocytes Sickle Cells Target Cells Tear Drop Cells Ovalocytes Stomatocytes [place] Bodies [place] Cells Bite Cells Crenated Cell Acanthocytes (Spur) Rouleaux Schistocytes Sodium Potassium Chloride Carbon Dioxide Anion Gap BUN Creatinine Est GFR (MDRD) Af Amer Est GFR (MDRD) Non-Af BUN/Creatinine Ratio Glucose Lactic Acid 0.3 L Calcium Troponin I High Sens 23 Radiography Diagnostic Testing: Clinical Impression(s) from Imaging Studies Chest X-Ray 08/12/23 15:40 IMPRESSION: Minimal linear atelectasis or scar in the mid left lung. There is no focal consolidation. Electronically Signed: Matt Tran MD at 16:52 EST , EKG Initial EKG: Comments: My independent interpretation of the patient's EKG done for chest pain shows normal sinus rhythm. Overall rate of 68. No ectopy. No acute ST elevation or depression. [place] interval, QRS duration and QTc are normal. Discharge Plan Triage Chief Complaint: Chest Pain ED Provider: Vikram Hicks Dx/Rx/DC Orders Clinical Impression: Chest pain Instructions: ED Chest Pain, Uncertain Cause Prescriptions: No Action fluticasone propionate 1 SPRAY spray,suspension 2 spray NASAL QHS Patient Comments: allergies gabapentin 300 mg capsule 300 mg PO QHS Patient Comments: take 1 capsule by mouth at bedtime estradiol 0.01 % (0.1 mg/gram) cream 3 g VAGINAL .2X/WEEK Patient Comments: insert 3 grams vaginally two times a week fenofibrate 160 mg tablet 160 mg PO DAILY Patient Comments: take 1 tablet by mouth once daily Trulicity 1.5 mg/0.5 mL pen injector 1.5 mg SUBCUT JOHNSON Patient Comments: inject 0.5 milliliters ( 1 AND 1/2 milligrams ) subcutaneously every week levothyroxine 175 mcg tablet 175 mcg PO DAILY Patient Comments: take 1 tablet by mouth once daily ON AN EMPTY STOMACH (FOR THYROID) vitamin E 400 unit Capsule 400 unit PO DAILY omega-3 fatty acids-vitamin E 1,000 mg Capsule 1 cap PO DAILY meloxicam 15 mg tablet 15 mg PO DAILY PRN (Reason: Pain) Patient Comments: take 1 tablet by mouth once daily if needed for pain with food ketorolac 0.5 % drops 1 drp ophthalmic (eye) Q6H Patient Comments: instill 1 drop into left eye four times a day prednisolone acetate 1 % drops,suspension 1 drp ophthalmic (eye) Q6H Patient Comments: instill 1 drop into right eye four times a day hydrochlorothiazide 12.5 mg capsule 12.5 mg PO DAILY Patient Comments: take 1 capsule by mouth once daily lisinopril 2.5 mg tablet 2.5 mg PO DAILY Patient Comments: take 1 tablet by mouth once daily dicyclomine 10 mg capsule 10 mg PO ACHS Patient Comments: take 1 capsule by mouth four times a day before meals and at bedtime FOR ABDOMINAL PAIN rosuvastatin 10 mg tablet 10 mg PO DAILY Patient Comments: take 1 tablet by mouth at bedtime insulin degludec [Tresiba FlexTouch U-100] 100 unit/mL (3 mL) insulin pen 52 unit SUBCUT QHS Patient Comments: INJECT 50 UNITS SUBCUTANEOUSLY DAILY AT BEDTIME ondansetron 4 mg tablet,disintegrating 4 mg PO Q8H PRN (Reason: nausea and vomiting) Qty: 10 0RF insulin lispro [Humalog KwikPen Insulin] 100 unit/mL Insulin Pen 8 unit subcut TIDCM Qty: 0 0RF levofloxacin 500 mg tablet 500 mg PO DAILY Qty: 4 0RF Rx Instructions: start on 08/12/22 Primary Care Provider: Rebeka Rabago Referrals: Rebeka Rabago MD [Primary Care Provider] - 3-5 Days Disposition Disposition: Home, Self Care
[2023-08-12 16:02] LABS: Anion Gap 5 (5-15); BUN 46 mg/dL (7-18); BUN/Creat Ratio 31.3 RATIO (10-20); Calcium,Total 9.6 mg/dL (8.5-10.1); Chloride 101 mmol/L (98-107); Creatinine, Serum 1.47 mg/dL (0.55-1.02); EST Glomerular Filtration Rate 39 mL/min (>60); Est Glom Filt Rate - Afr Amer 47 mL/min (>60); Glucose 251 mg/dL (74-106); Potassium 4.4 mmol/L (3.5-5.1); Sodium Level 135 mmol/L (136-145); Troponin-I HS (w/2H Reflex) 27 pg/mL (3.0-54.0)
[2023-08-12 16:14] LABS: Absolute Lymphocyte Count 1.54 X10^3/uL (0.83-4.51); Absolute Neutrophil Count 4.6 X10^3/uL (2.0-7.7); Basophil# 0.03 X10^3/uL; Basophil% 0.4 % (0-1); Eosinophil# 0.22 X10^3/uL; Eosinophils% 3.1 % (0-5); Hematocrit 35.4 % (37-47); Hemoglobin 11.1 g/dL (12.0-15.0); Lymphocyte # 1.54 X10^3/ul (0.83-4.51); Lymphocyte % 21.5 % (19-41); Mean Corp Hgb Conc 31.4 g/dL (32-36); Mean Corpuscular Hgb 27.9 pg (27.0-32.0); Mean Corpuscular Volume 88.9 fL (81-99); Mean Platelet Vol. 11.1 fl (6.2-12.0); Monocyte# 0.76 X10^3/uL; Monocyte% 10.6 % (0-10); NRBC Flagged by Analyzer 0 % (0-5); Neutrophil # 4.57 X10^3/uL (2.7-7.7); Neutrophil % 63.8 % (47-70); Platelet Count 166 K/mm3 (150-450); RBC Distribution Width CV 14.3 % (11.6-14.6); RBC Distribution Width SD 45.9 fl (35.1-43.9); Red Blood Count 3.98 M/mm3 (4.2-5.4); White Blood Count 7.2 K/mm3 (4.4-11.0)
[2023-08-12] MEDS: Ondansetron 4 MG/2 ML Vial IV (16:15)
[2023-08-12] MEDS: 0.9% Normal Saline (1000mL) 1,000 ML 999 ML IV (16:36)
[2023-08-12 17:28] LABS: Lactic Acid 0.3 mmol/L (0.4-1.9)
[2023-08-12 17:34] LABS: Reflex Troponin-HS? (from REC) Y
[2023-08-12 18:22] LABS: Troponin-I HS 23 pg/mL (3.0-54.0)
== END 2023-08-12 21:23 | disposition home or self-care (01) ==
PROVIDERS: Emergency Provider Emergency Medicine; PCP Internal Medicine; Visit Provider Emergency Medicine
DX: R07.9 Chest pain, unspecified (principal); E11.40 Type 2 diabetes mellitus with diabetic neuropathy, unspecified; Z79.4 Long term (current) use of insulin; I10 Essential (primary) hypertension; Z87.891 Personal history of nicotine dependence; E78.00 Pure hypercholesterolemia, unspecified; Z79.85 Long-term (current) use of injectable non-insulin antidiabetic drugs; Z79.899 Other long term (current) drug therapy; E03.9 Hypothyroidism, unspecified; Z90.49 Acquired absence of other specified parts of digestive tract
CPT/HCPCS: 36415; 71045; 80048; 83605; 84484; 85025; 93005; 96361; 96374; 99283; J7030; A4216; J2405

== ENCOUNTER 2024-04-20 18:28 | Emergency (ER) | payer MEDICAID, SELFPAY ==
[2024-04-20 18:38] VITALS: BP 120/59; PULSE 81; RESP 19; TEMP 36.7; O2SAT 92; BMI 40.6
--- NOTE | 2024-04-20 18:41 | EKG12_ITS ---
Test Reason : DYSRHYTHMIA Blood Pressure : / mmHG Vent. Rate : 079 BPM Atrial Rate : 079 BPM P-R Int : 182 ms QRS Dur : 100 ms QT Int : 428 ms P-R-T Axes : 022 000 036 degrees QTc Int : 490 ms Normal sinus rhythm Prolonged QT Abnormal ECG Confirmed by JACQUIE DUNNE, XIMENA ([id number]), editorial manager JESSICA VILLA ([id number]) on 04/24/2024 11:08:26 AM Referred By: Confirmed By:XIMENA DHILLON MD
--- NOTE | 2024-04-20 18:42 | EDS_ITS ---
HPI History of Present Illness Chief Complaint: Shortness of Breath Informant: patient and EMS Narrative Narrative: 58-year-old female on chronic home O2 for reported COVID x 4 years presenting to the emergency room with diarrhea and dyspnea. Patient states that she developed diarrhea last night throughout the day. She has she has a hard time controlling it. She is a diabetic.. She notes nausea but no vomiting. She has been able to eat several meat sandwiches today. She notes an increase shortness of breath. Chronically on home O2 at 2 L. No reported fevers. No significant abdominal pain. She notes chronic left greater than right leg swelling but no CHF history. [facility] Medical History Chronic respiratory failure with hypoxia Pericardial effusion Thrombocytopenia Anemia Elevated lipase Urinary retention Obesity Former tobacco use UTI (urinary tract infection) Kidney stones Migraines Hypothyroid Hypercholesteremia Hypertension Type 2 diabetes mellitus Home Medications ?Medication ?Instructions ?Recorded ?Last Taken ?Type fluticasone propionate 50 2 spray QHS nasal spray 05/24/15 03/24/21 History mcg/actuation nasal spray,suspension dulaglutide 1.5 mg/0.5 mL 1.5 mg subcut JOHNSON dm 03/25/21 03/23/21 History subcutaneous pen injector (Trulicity) estradiol 0.01% (0.1 mg/gram) 3 g vaginal .2X/WEEK health 03/25/21 Unknown History vaginal cream maintenance fenofibrate 160 mg tablet 160 mg PO DAILY cholesterol 03/25/21 03/24/21 History gabapentin 300 mg capsule 300 mg PO QHS nerve pain 03/25/21 03/24/21 History levothyroxine 175 mcg tablet 175 mcg PO DAILY thyroid 03/25/21 03/24/21 History vitamin E 268 mg (400 unit) capsule 400 unit PO DAILY supplement 03/25/21 03/24/21 History dicyclomine 10 mg capsule 10 mg PO ACHS abdominal pain 07/06/21 Unknown History hydrochlorothiazide 12.5 mg capsule 12.5 mg PO DAILY diuretic 07/06/21 Unknown History insulin degludec 100 unit/mL (3 52 unit subcut QHS diabetes 07/06/21 Unknown History mL) subcutaneous pen (Tresiba FlexTouch U-100 insulin) ketorolac 0.5 % eye drops 1 drp ophthalmic (eye) Q6H eye 07/06/21 Unknown History lisinopril 2.5 mg tablet 2.5 mg PO DAILY blood pressure 07/06/21 Unknown History meloxicam 15 mg tablet 15 mg PO DAILY PRN Pain 07/06/21 Unknown History ondansetron 4 mg disintegrating 4 mg PO Q8H PRN nausea and 07/06/21 Unknown Rx tablet vomiting #10 tabs prednisolone acetate 1 % eye 1 drp ophthalmic (eye) Q6H eye 07/06/21 Unknown History drops,suspension rosuvastatin 10 mg tablet 10 mg PO DAILY cholesterol 07/06/21 Unknown History insulin lispro 100 unit/mL 8 unit (0.08 mL) subcut TIDCM #0 mL 07/21/21 Unknown Rx subcutaneous pen (Humalog KwikPen (U-100) Insulin) furosemide 40 mg tablet 40 mg PO DAILY PRN swelling 04/20/24 Unknown History hydrocodone-acetaminophen 5-325mg 1 tab PO TID PRN PRN pain 04/20/24 Unknown History 5mg-325mg hydroxyzine HCl 25 mg tablet 25 - 50 mg PO QHS PRN PRN sleep 04/20/24 Unknown History levothyroxine 150 mcg tablet 150 mcg PO DAILY 04/20/24 Unknown History Allergy/AdvReac Type Severity Reaction Status Date / Time metformin AdvReac Diarrhea Verified 08/12/23 14:39 oxycodone (From Percocet) AdvReac upset Verified 08/12/23 14:39 stomach/off balance Family History Mother Diabetes Father Diabetes Surgical History Previous section History of appendectomy Social History household members: none Smoking Status: Former smoker how long ago did patient quit smoking: Quit cigarette tobacco in 2015, 1 ppd since teenager until quit. alcohol intake: never substance use type: does not use ROS ROS ED Constitutional Constitutional ED: Denies chills, fever(s) or weight loss Eyes Eyes: Denies change in vision or diplopia ENT ENT ED: Denies ear pain, rhinorrhea or sore throat Cardiovascular Cardiovascular: Denies chest pain, orthopnea, palpitations or racing heartbeat Respiratory/Chest Respiratory/Chest: Reports cough, dyspnea and dyspnea on exertion; Denies orthopnea Gastrointestinal Gastrointestinal: Reports diarrhea and nausea; Denies abdominal pain or vomiting Genitourinary Genitourinary ED: Denies dysuria, hematuria or urinary frequency Musculoskeletal Musculoskeletal: Reports other Details: leg swelling ; Denies arthralgias or myalgias Integumentary Denies abscess or rash Neurologic Neurologic: Denies headache(s) or weakness Psychiatric Psychiatric: Denies anxiety, depression, suicidal ideation or suicidal thoughts Endocrine Endocrinology: Denies polydipsia, polyphagia or polyuria Allergic/Immunologic Allergic/Immunologic ED: Denies mouth swelling, tongue swelling or urticaria EXAM Physical Exam Const Vital Signs: 04/20/24 18:38 04/20/24 18:47 04/20/24 18:50 Temperature 98.1 F 98.1 F Temperature Source Oral Oral Pulse Rate 81 80 Respiratory Rate 19 H 12 Respiratory Effort Normal Non-Labored Respiratory Depth Normal Respiratory Pattern Normal Blood Pressure 120/59 L 119/55 L Blood Pressure Mean 79 76 Pulse Ox 92 95 Oxygen Delivery Method Nasal Cannula Nasal Cannula Nasal Cannula Oxygen Flow Rate (L/min) 2 2 2 Fraction of Inspired Oxygen (FIO2) 04/20/24 19:00 04/20/24 19:00 04/20/24 19:47 Temperature 98.1 F Temperature Source Oral Pulse Rate 85 87 Respiratory Rate 18 19 H Respiratory Effort Respiratory Depth Respiratory Pattern Normal Blood Pressure 120/55 L Blood Pressure Mean 76 Pulse Ox 96 95 Oxygen Delivery Method Nasal Cannula Nasal Cannula Oxygen Flow Rate (L/min) 2 2 Fraction of Inspired Oxygen (FIO2) 28 04/20/24 20:29 Temperature 97.7 F L Temperature Source Pulse Rate 80 Respiratory Rate 19 H Respiratory Effort Respiratory Depth Respiratory Pattern Blood Pressure 100/55 L Blood Pressure Mean 70 Pulse Ox 93 Oxygen Delivery Method Oxygen Flow Rate (L/min) Fraction of Inspired Oxygen (FIO2) Positive well nourished, well developed and obese General Appearance ED: well developed and NAD Nutritional Appearance: obese HEENT Reports normocephalic, head/scalp atraumatic and moist mucous membranes Eyes PERRL and EOMs intact bilaterally Neck no lymphadenopathy, supple and no JVD Resp normal respiratory effort Auscultation: wheezes expiratory wheezes (minimal at bases) Cardio regular rate, regular rhythm and no murmurs GI normal to inspection, nondistended, normoactive bowel sounds and non-tender Palpation: soft Back/Spine no CVA tenderness and normal ROM Extremity General Extremety ED: Yes edema General Extremity: edema bilateral lower extremity Neuro oriented x3 and CN's II-XII intact bilaterally Sensorium / Orientation: alert Motor Exam: strength 5/5 throughout Psych mental status grossly normal Mood & Affect: Negative for depressed or tearful Skin no rashes or lesions noted and no wounds MDM MDM MDM Narrative Medical decision making narrative: Differential diagnosis includes viral and bacterial diarrhea colitis dehydration GI bleed pneumonia cardiac dysrhythmia electrolyte disturbance ACS my independent interpretation of the chest x-ray is no acute process. White count 7.8 with hemoglobin 12.1 and platelet count of 179. BMP shows a BUN of 39 creatinine 1.55. Liver enzymes within normal limits BNP 6.6 troponin 27 lactic acid 1.7. Patient had a small amount of semiformed stool that was about the size of a half dollar. Her breathing seems at baseline. She is not requiring anything more than 2 L which is what she takes at home. Her lung sounds are pretty clear and she does not have conversational dyspnea. If the patient most likely has diarrhea most likely viral but not definitive. She clinically appears well has normal vital signs essentially normal labs I think she can be discharged home return if worsening History & Record Review Discussion w/independent historian: Patient Lab Data Attestation: I reviewed the patient's lab results. Labs: Laboratory Results - last 24 hr 04/20/24 18:50 WBC 7.8 RBC 4.26 Hgb 12.1 Hct 37.3 MCV 87.6 MCH 28.4 MCHC 32.4 RDW Std Deviation 44.3 H RDW Coeff of Catina 13.9 Plt Count 179 MPV 11.4 Immature Gran % (Auto) 0.500 Neut % (Auto) 74.7 H Lymph % (Auto) 14.4 L [place]ry % (Auto) 7.0 Eos % (Auto) 3.1 Baso % (Auto) 0.3 Absolute Neuts (auto) 5.9 Absolute Lymphs (auto) 1.13 Nucleated RBC % 0 PT 13.8 INR 1.1 APTT 25.9 Sodium 136 Potassium 4.0 Chloride 96 L Carbon Dioxide 32.0 Anion Gap 8 BUN 39 H Creatinine 1.55 H Estim Creat Clear Calc 47.35 Est GFR (MDRD) Af Amer 44 L Est GFR (MDRD) Non-Af 36 L BUN/Creatinine Ratio 25.2 H Glucose 339 H Lactic Acid 1.7 Calcium 9.9 Total Bilirubin 0.40 Direct Bilirubin 0.10 AST 21 ALT 30 Alkaline Phosphatase 78 Troponin I High Sens 27 B-Natriuretic Peptide 6.6 Total Protein 7.5 Albumin 3.5 Globulin 4.0 EKG Initial EKG: Attestation: I personally reviewed and interpreted this EKG as follows: Comments: Normal sinus rhythm ventricular rate of 79 bpm Discharge Plan Triage Chief Complaint: Shortness of Breath ED Provider: Joss Garcia Dx/Rx/DC Orders Clinical Impression: Diarrhea, Acute dyspnea Instructions: ED Diarrhea, Unknown Cause Prescriptions: No Action fluticasone propionate 1 SPRAY spray,suspension 2 spray NASAL QHS Patient Comments: allergies gabapentin 300 mg capsule 300 mg PO QHS Patient Comments: take 1 capsule by mouth at bedtime estradiol 0.01 % (0.1 mg/gram) cream 3 g VAGINAL .2X/WEEK Patient Comments: insert 3 grams vaginally two times a week fenofibrate 160 mg tablet 160 mg PO DAILY Patient Comments: take 1 tablet by mouth once daily Trulicity 1.5 mg/0.5 mL pen injector 1.5 mg SUBCUT JOHNSON Patient Comments: inject 0.5 milliliters ( 1 AND 1/2 milligrams ) subcutaneously every week levothyroxine 175 mcg tablet 175 mcg PO DAILY Patient Comments: take 1 tablet by mouth once daily ON AN EMPTY STOMACH (FOR THYROID) vitamin E 400 unit Capsule 400 unit PO DAILY meloxicam 15 mg tablet 15 mg PO DAILY PRN (Reason: Pain) Patient Comments: take 1 tablet by mouth once daily if needed for pain with food ketorolac 0.5 % drops 1 drp ophthalmic (eye) Q6H Patient Comments: instill 1 drop into left eye four times a day prednisolone acetate 1 % drops,suspension 1 drp ophthalmic (eye) Q6H Patient Comments: instill 1 drop into right eye four times a day hydrochlorothiazide 12.5 mg capsule 12.5 mg PO DAILY Patient Comments: take 1 capsule by mouth once daily lisinopril 2.5 mg tablet 2.5 mg PO DAILY Patient Comments: take 1 tablet by mouth once daily dicyclomine 10 mg capsule 10 mg PO ACHS Patient Comments: take 1 capsule by mouth four times a day before meals and at bedtime FOR ABDOMINAL PAIN rosuvastatin 10 mg tablet 10 mg PO DAILY Patient Comments: take 1 tablet by mouth at bedtime insulin degludec [Tresiba FlexTouch U-100] 100 unit/mL (3 mL) insulin pen 52 unit SUBCUT QHS Patient Comments: INJECT 50 UNITS SUBCUTANEOUSLY DAILY AT BEDTIME ondansetron 4 mg tablet,disintegrating 4 mg PO Q8H PRN (Reason: nausea and vomiting) Qty: 10 0RF insulin lispro [Humalog KwikPen Insulin] 100 unit/mL Insulin Pen 8 unit subcut TIDCM Qty: 0 0RF furosemide 40 mg tablet 40 mg PO DAILY PRN (Reason: swelling) hydrocodone-acetaminophen 5-325 mg tablet 1 tab PO TID PRN PRN (Reason: pain) hydroxyzine HCl 25 mg tablet 25 - 50 mg PO QHS PRN PRN (Reason: sleep) levothyroxine 150 mcg tablet 150 mcg PO DAILY Primary Care Provider: Rebeka Rabago Referrals: Rebkea Rabago MD [Primary Care Provider] - 3-5 Days if not improving Print Language: Citizen Of [place] Disposition Disposition: Home, Self Care
[2024-04-20 18:47] VITALS: BP 119/55; PULSE 80; RESP 12; TEMP 36.7; O2SAT 95
[2024-04-20 18:50] VITALS: O2SAT 96
[2024-04-20] MEDS: 0.9% Normal Saline (500mL Bag) 500 ML 1000 ML IV (18:58)
[2024-04-20 19:00] VITALS: PULSE 85; RESP 18; O2SAT 96
[2024-04-20] MEDS: Ipratropium/Albuterol Sulfate 3 ML AMPUL.NEB INHALATION (19:00)
[2024-04-20 19:21] LABS: Absolute Lymphocyte Count 1.13 X10^3/uL (0.83-4.51); Absolute Neutrophil Count 5.9 X10^3/uL (2.0-7.7); Basophil# 0.02 X10^3/uL; Basophil% 0.3 % (0-1); Eosinophil# 0.24 X10^3/uL; Eosinophils% 3.1 % (0-5); Hematocrit 37.3 % (37-47); Hemoglobin 12.1 g/dL (12.0-15.0); Lymphocyte # 1.13 X10^3/ul (0.83-4.51); Lymphocyte % 14.4 % (19-41); Mean Corp Hgb Conc 32.4 g/dL (32-36); Mean Corpuscular Hgb 28.4 pg (27.0-32.0); Mean Corpuscular Volume 87.6 fL (81-99); Mean Platelet Vol. 11.4 fl (6.2-12.0); Monocyte# 0.55 X10^3/uL; NRBC Flagged by Analyzer 0 % (0-5); Neutrophil # 5.86 X10^3/uL (2.7-7.7); Neutrophil % 74.7 % (47-70); Platelet Count 179 K/mm3 (150-450); RBC Distribution Width CV 13.9 % (11.6-14.6); RBC Distribution Width SD 44.3 fl (35.1-43.9); Red Blood Count 4.26 M/mm3 (4.2-5.4); White Blood Count 7.8 K/mm3 (4.4-11.0)
[2024-04-20 19:32] LABS: International Normalized Ratio 1.1; Partial Thromboplast Time 25.9 Seconds (24.1-36.2); Prothrombin Time (Protime)PT. 13.8 SECONDS (11.7-14.9)
--- NOTE | 2024-04-20 19:39 | RAD_ITS ---
INDICATION: dyspnea EXAMINATION/TECHNIQUE: X-RAY - XR Chest 1 View COMPARISON: August 12, 2023 FINDINGS: LINES/DEVICES: None. LUNGS: No consolidation, edema or effusion. Basilar scarring/atelectasis. No pneumothorax. MEDIASTINUM AND CARDIOVASCULAR STRUCTURES: Cardiac silhouette is enlarged. Central airways and mediastinal contour are unremarkable. BONES AND SOFT TISSUES: Unremarkable. RAD/Chest 1 View (Portable) IMPRESSION: Cardiomegaly. Electronically Signed: Mariano Javed DO at 20:39 EDT ,
[2024-04-20 19:47] VITALS: BP 120/55; PULSE 87; RESP 19; TEMP 36.7; O2SAT 95
[2024-04-20 19:49] LABS: BNP,B-Type NATRIURETIC PEPTIDE 6.6 pg/mL (0-100)
[2024-04-20 19:52] LABS: AST(SGOT) 21 U/L (15-37); Alanine Aminotransfer ALT/SGPT 30 U/L (13-56); Albumin, Serum 3.5 g/dL (3.2-5.0); Alkaline Phosphatase 78 U/L (45-117); Anion Gap 8 (5-15); BUN 39 mg/dL (7-18); BUN/Creat Ratio 25.2 RATIO (10-20); Calcium,Total 9.9 mg/dL (8.5-10.1); Chloride 96 mmol/L (98-107); Creatinine, Serum 1.55 mg/dL (0.55-1.02); EST Glomerular Filtration Rate 36 mL/min (>60); Est Glom Filt Rate - Afr Amer 44 mL/min (>60); Estimated Creatinine Clearance 47.35 ml/min; Glucose 339 mg/dL (74-106); Protein, Total 7.5 g/dL (6.4-8.2); Sodium Level 136 mmol/L (136-145); Troponin-I HS 27 pg/mL (3.0-54.0)
[2024-04-20 20:08] LABS: Lactic Acid 1.7 mmol/L (0.4-1.9)
[2024-04-20 20:29] VITALS: BP 100/55; PULSE 80; RESP 19; TEMP 36.5; O2SAT 93
== END 2024-04-20 20:40 | disposition home or self-care (01) ==
PROVIDERS: Emergency Provider Emergency Medicine; PCP Internal Medicine; Visit Provider Emergency Medicine
DX: R06.02 Shortness of breath (principal); E11.9 Type 2 diabetes mellitus without complications; Z79.4 Long term (current) use of insulin; R19.7 Diarrhea, unspecified; E78.00 Pure hypercholesterolemia, unspecified; I10 Essential (primary) hypertension; Z87.891 Personal history of nicotine dependence; Z99.81 Dependence on supplemental oxygen; Z79.85 Long-term (current) use of injectable non-insulin antidiabetic drugs; E03.9 Hypothyroidism, unspecified; Z79.899 Other long term (current) drug therapy; Z90.49 Acquired absence of other specified parts of digestive tract; Z86.16 Personal history of COVID-19
CPT/HCPCS: 71045; 80048; 80076; 83605; 83880; 84484; 85025; 85610; 85730; 87631; 93005; 94640; 96360; 96361; 99284; J7030; A4216

== ENCOUNTER 2024-04-28 19:54 | Emergency (ER) | payer MEDICAID, SELFPAY ==
[2024-04-28 19:56] VITALS: BP 113/58; PULSE 81; RESP 16; TEMP 37; O2SAT 93; BMI 39.6
--- NOTE | 2024-04-28 20:07 | CT_ITS ---
INDICATION: Left flank pain EXAMINATION: CT ABDOMEN AND PELVIS WITHOUT CONTRAST - CT Abdomen And Pelvis W/O Contrast Injection TECHNIQUE: Helically acquired images were obtained of the abdomen and pelvis without oral or IV contrast. A radiation dose optimization technique was used for this scan. IV Contrast dosage and agent: None. Oral contrast: None. COMPARISON: 03/17/2021, 06/27/2015 FINDINGS: LOWER CHEST: Scattered bibasilar groundglass opacities with fibrotic changes and small left basilar pneumatocele. Normal cardiac size. Small pericardial effusion. LIVER: Hepatomegaly with lobular and nodular liver margins. No focal mass. GALLBLADDER AND BILIARY TREE: No calcified gallstones. No gallbladder distension or wall edema. No intra- or extrahepatic biliary ductal dilation. PANCREAS: No focal cystic or solid mass. SPLEEN: Splenomegaly. ADRENAL GLANDS: No nodules. KIDNEYS AND URETERS: No nephrolithiasis or hydronephrosis. PERITONEUM: No ascites or free air. BOWEL: No evidence of acute appendicitis. No stomach or bowel distension. No focal inflammatory change. LYMPH NODES: No enlarged mesenteric or retroperitoneal lymph nodes. VESSELS: Aorta is non-dilated. URINARY BLADDER: Unremarkable. REPRODUCTIVE ORGANS: No pelvic masses. ABDOMINAL WALL: Fat-containing umbilical hernia. BONES: No acute or aggressive abnormality. CT/Abdomen/Pelvis without Cont IMPRESSION: No acute findings in the abdomen or pelvis. Cirrhotic liver with hepatosplenomegaly. Scattered bibasilar groundglass opacities, possible infection including atypical or viral pneumonia. Small pericardial effusion. Electronically Signed: Kwame Herron MD at 21:34 EDT ,
--- NOTE | 2024-04-28 20:08 | ED.VIS.GI ---
HPI HPI - GI History of Present Illness Chief Complaint: Flank Pain Informant: patient and EMS Narrative Narrative: Patient presents by EMS for left flank pain has been there for 2 or 3 days, came on gradually waxing and waning with some nausea no vomiting. Feels similar to kidney stone pain in the past. She has had large stones have had to be removed surgically. She denies any syncope, fevers, other systemic symptoms. [facility] Medical History Chronic respiratory failure with hypoxia Pericardial effusion Thrombocytopenia Anemia Elevated lipase Urinary retention Obesity Former tobacco use UTI (urinary tract infection) Kidney stones Migraines Hypothyroid Hypercholesteremia Hypertension Type 2 diabetes mellitus Home Medications ?Medication ?Instructions ?Recorded ?Last Taken ?Type fluticasone propionate 50 2 spray QHS nasal spray 05/24/15 03/24/21 History mcg/actuation nasal spray,suspension dulaglutide 1.5 mg/0.5 mL 1.5 mg subcut JOHNSON dm 03/25/21 03/23/21 History subcutaneous pen injector (Trulicity) estradiol 0.01% (0.1 mg/gram) 3 g vaginal .2X/WEEK health 03/25/21 Unknown History vaginal cream maintenance fenofibrate 160 mg tablet 160 mg PO DAILY cholesterol 03/25/21 03/24/21 History gabapentin 300 mg capsule 300 mg PO QHS nerve pain 03/25/21 03/24/21 History levothyroxine 175 mcg tablet 175 mcg PO DAILY thyroid 03/25/21 03/24/21 History vitamin E 268 mg (400 unit) capsule 400 unit PO DAILY supplement 03/25/21 03/24/21 History dicyclomine 10 mg capsule 10 mg PO ACHS abdominal pain 07/06/21 Unknown History hydrochlorothiazide 12.5 mg capsule 12.5 mg PO DAILY diuretic 07/06/21 Unknown History insulin degludec 100 unit/mL (3 52 unit subcut QHS diabetes 07/06/21 Unknown History mL) subcutaneous pen (Tresiba FlexTouch U-100 insulin) ketorolac 0.5 % eye drops 1 drp ophthalmic (eye) Q6H eye 07/06/21 Unknown History lisinopril 2.5 mg tablet 2.5 mg PO DAILY blood pressure 07/06/21 Unknown History meloxicam 15 mg tablet 15 mg PO DAILY PRN Pain 07/06/21 Unknown History ondansetron 4 mg disintegrating 4 mg PO Q8H PRN nausea and 07/06/21 Unknown Rx tablet vomiting #10 tabs prednisolone acetate 1 % eye 1 drp ophthalmic (eye) Q6H eye 07/06/21 Unknown History drops,suspension rosuvastatin 10 mg tablet 10 mg PO DAILY cholesterol 07/06/21 Unknown History insulin lispro 100 unit/mL 8 unit (0.08 mL) subcut TIDCM #0 mL 07/21/21 Unknown Rx subcutaneous pen (Humalog KwikPen (U-100) Insulin) furosemide 40 mg tablet 40 mg PO DAILY PRN swelling 04/20/24 Unknown History hydrocodone-acetaminophen 5-325mg 1 tab PO TID PRN PRN pain 04/20/24 Unknown History 5mg-325mg hydroxyzine HCl 25 mg tablet 25 - 50 mg PO QHS PRN PRN sleep 04/20/24 Unknown History levothyroxine 150 mcg tablet 150 mcg PO DAILY 04/20/24 Unknown History ciprofloxacin HCl 500 mg tablet 500 mg PO BID #14 TABLETS 04/28/24 Unknown Rx Allergy/AdvReac Type Severity Reaction Status Date / Time metformin AdvReac Diarrhea Verified 04/28/24 20:00 oxycodone (From Percocet) AdvReac upset Verified 04/28/24 20:00 stomach/off balance Family History Mother Diabetes Father Diabetes Surgical History Previous section History of appendectomy Social History household members: none Smoking Status: Former smoker how long ago did patient quit smoking: Quit cigarette tobacco in 2015, 1 ppd since teenager until quit. alcohol intake: never substance use type: does not use ROS ROS ED Constitutional Constitutional ED: Denies chills or fever(s) Eyes Eyes: Denies change in vision or diplopia ENT ENT ED: Denies rhinorrhea or sore throat Cardiovascular Cardiovascular: Denies chest pain or palpitations Respiratory/Chest Respiratory/Chest: Denies cough or dyspnea Gastrointestinal Gastrointestinal: Reports abdominal pain and nausea; Denies diarrhea or vomiting Genitourinary Genitourinary ED: Reports flank pain; Denies dysuria or hematuria Musculoskeletal Musculoskeletal: Reports back pain; Denies neck pain Integumentary Denies abscess or rash Neurologic Neurologic: Denies headache(s), paresthesias or weakness Psychiatric Psychiatric: Denies suicidal thoughts EXAM Physical Exam Const Vital Signs: 04/28/24 19:56 04/28/24 21:55 Temperature 98.6 F Temperature Source Temporal Pulse Rate 81 76 Respiratory Rate 16 18 Blood Pressure 113/58 L 102/51 L Blood Pressure Mean 76 68 Pulse Ox 93 97 Oxygen Delivery Method Nasal Cannula Room Air Oxygen Flow Rate (L/min) 4 Positive well nourished, well developed and obese General Appearance ED: well developed and NAD Nutritional Appearance: obese HEENT Reports moist mucous membranes normocephalic and atraumatic Eyes PERRL and EOMs intact bilaterally Neck full ROM and supple Resp normal respiratory effort and clear to auscultation bilaterally Cardio regular rate, regular rhythm and no murmurs GI non-distended GI Narrative: Mild diffuse tenderness left side of abdomen no guarding or rebound. No pulsatile mass palpable but obesity limits exam. Auscultation: normoactive bowel sounds Palpation: soft Back/Spine General Back: CVA tenderness left (Very mild. Normal inspection.) and other FROM Extremity normal to inspection General Extremety ED: Negative for edema, pulses abnormal or tenderness General Extremity: Negative for edema or pulses abnormal Neuro oriented x3, CN's II-XII intact bilaterally and no sensory deficits noted Sensorium / Orientation: awake and alert Motor Exam: strength 5/5 throughout Psych mental status grossly normal and thought process normal Skin no rashes or lesions noted and no wounds MDM MDM MDM Narrative Medical decision making narrative: Patient having symptoms of renal/ureteral colic, obtain CT since she has had large stones in the past as well as labs since she has had symptoms for several days, and urinalysis. The urinalysis appears to show infection, her renal insufficiency is a little better than usual, her blood sugar is 276 otherwise her labs are normal. I reviewed the images of the CT and the report which I agree with, there is no sign of an obstructive uropathy or pyelonephritis/perinephric stranding. Given her symptoms, it could be an early upper UTI. Therefore she was started on a dose of Rocephin, she was given pain medication and nausea medication which is all better, she is clinically stable and not septic so I think discharging her home and treating her with antibiotics as an outpatient is completely reasonable. Will place her on 1 week of Cipro. I did review prior cultures, she has never had any resistant organisms. Close outpatient follow-up advised. Lab Data Attestation: I reviewed the patient's lab results. Labs: Laboratory Results - last 24 hr 04/28/24 04/28/24 19:33 20:54 WBC 8.8 RBC 4.18 L Hgb 11.7 L Hct 36.7 L MCV 87.8 MCH 28.0 MCHC 31.9 L RDW Std Deviation 44.0 H RDW Coeff of Catina 13.8 Plt Count 194 MPV 11.2 Immature Gran % (Auto) 0.500 Neut % (Auto) 72.0 H Lymph % (Auto) 18.3 L Pope % (Auto) 7.9 Eos % (Auto) 1.1 Baso % (Auto) 0.2 Absolute Neuts (auto) 6.3 Absolute Lymphs (auto) 1.61 Nucleated RBC % 0 Sodium 135 L Potassium 3.9 Chloride 96 L Carbon Dioxide 32.0 Anion Gap 7 BUN 39 H Creatinine 1.50 H Estim Creat Clear Calc 48.21 Est GFR (MDRD) Af Amer 46 L Est GFR (MDRD) Non-Af 38 L BUN/Creatinine Ratio 26.0 H Glucose 276 H Calcium 9.5 Urine Color Yellow Urine Clarity Sl. Cloudy Urine pH 6.5 Ur Specific [place] 1.010 Urine Protein 100 H Urine Glucose (UA) 1000 H Urine Ketones Negative Urine Occult Blood 150 H Urine Nitrite Negative Urine Bilirubin Negative Urine Urobilinogen Normal Ur Leukocyte Esterase 500 H Urine RBC 10-25 SEEN Urine WBC 25-50 SEEN Ur Squamous Epith Cells 5-10 SEEN Ur Renal Epithelial Cell 0-5 SEEN Urine Bacteria 0 SEEN Urine Mucus 0 SEEN Radiography Diagnostic Testing: Clinical Impression(s) from Imaging Studies Abdomen/Pelvis CT 04/28/24 20:07 IMPRESSION: No acute findings in the abdomen or pelvis. Cirrhotic liver with hepatosplenomegaly. Scattered bibasilar groundglass opacities, possible infection including atypical or viral pneumonia. Small pericardial effusion. Electronically Signed: Kwame Herron MD at 21:34 EDT , Discharge Plan Triage Chief Complaint: Flank Pain ED Provider: Klaus Stout Dx/Rx/DC Orders Clinical Impression: Acute upper urinary tract infection Instructions: ED Pyelonephritis, Female (Adult) Prescriptions: New ciprofloxacin HCl 500 mg tablet 500 mg PO BID Qty: 14 0RF No Action fluticasone propionate 1 SPRAY spray,suspension 2 spray NASAL QHS Patient Comments: allergies gabapentin 300 mg capsule 300 mg PO QHS Patient Comments: take 1 capsule by mouth at bedtime estradiol 0.01 % (0.1 mg/gram) cream 3 g VAGINAL .2X/WEEK Patient Comments: insert 3 grams vaginally two times a week fenofibrate 160 mg tablet 160 mg PO DAILY Patient Comments: take 1 tablet by mouth once daily Trulicity 1.5 mg/0.5 mL pen injector 1.5 mg SUBCUT JOHNSON Patient Comments: inject 0.5 milliliters ( 1 AND 1/2 milligrams ) subcutaneously every week levothyroxine 175 mcg tablet 175 mcg PO DAILY Patient Comments: take 1 tablet by mouth once daily ON AN EMPTY STOMACH (FOR THYROID) vitamin E 400 unit Capsule 400 unit PO DAILY meloxicam 15 mg tablet 15 mg PO DAILY PRN (Reason: Pain) Patient Comments: take 1 tablet by mouth once daily if needed for pain with food ketorolac 0.5 % drops 1 drp ophthalmic (eye) Q6H Patient Comments: instill 1 drop into left eye four times a day prednisolone acetate 1 % drops,suspension 1 drp ophthalmic (eye) Q6H Patient Comments: instill 1 drop into right eye four times a day hydrochlorothiazide 12.5 mg capsule 12.5 mg PO DAILY Patient Comments: take 1 capsule by mouth once daily lisinopril 2.5 mg tablet 2.5 mg PO DAILY Patient Comments: take 1 tablet by mouth once daily dicyclomine 10 mg capsule 10 mg PO ACHS Patient Comments: take 1 capsule by mouth four times a day before meals and at bedtime FOR ABDOMINAL PAIN rosuvastatin 10 mg tablet 10 mg PO DAILY Patient Comments: take 1 tablet by mouth at bedtime insulin degludec [Tresiba FlexTouch U-100] 100 unit/mL (3 mL) insulin pen 52 unit SUBCUT QHS Patient Comments: INJECT 50 UNITS SUBCUTANEOUSLY DAILY AT BEDTIME ondansetron 4 mg tablet,disintegrating 4 mg PO Q8H PRN (Reason: nausea and vomiting) Qty: 10 0RF insulin lispro [Humalog KwikPen Insulin] 100 unit/mL Insulin Pen 8 unit subcut TIDCM Qty: 0 0RF furosemide 40 mg tablet 40 mg PO DAILY PRN (Reason: swelling) hydrocodone-acetaminophen 5-325 mg tablet 1 tab PO TID PRN PRN (Reason: pain) hydroxyzine HCl 25 mg tablet 25 - 50 mg PO QHS PRN PRN (Reason: sleep) levothyroxine 150 mcg tablet 150 mcg PO DAILY Primary Care Provider: Rebeka Rabago Referrals: Rebeka Rabago MD [Primary Care Provider] - 3-5 Days Print Language: Luxembourger Disposition Disposition: Home, Self Care
[2024-04-28 20:26] LABS: Absolute Lymphocyte Count 1.61 X10^3/uL (0.83-4.51); Absolute Neutrophil Count 6.3 X10^3/uL (2.0-7.7); Basophil# 0.02 X10^3/uL; Basophil% 0.2 % (0-1); Eosinophils% 1.1 % (0-5); Hematocrit 36.7 % (37-47); Hemoglobin 11.7 g/dL (12.0-15.0); Lymphocyte # 1.61 X10^3/ul (0.83-4.51); Lymphocyte % 18.3 % (19-41); Mean Corp Hgb Conc 31.9 g/dL (32-36); Mean Corpuscular Volume 87.8 fL (81-99); Mean Platelet Vol. 11.2 fl (6.2-12.0); Monocyte% 7.9 % (0-10); NRBC Flagged by Analyzer 0 % (0-5); Neutrophil # 6.34 X10^3/uL (2.7-7.7); Platelet Count 194 K/mm3 (150-450); RBC Distribution Width CV 13.8 % (11.6-14.6); Red Blood Count 4.18 M/mm3 (4.2-5.4); White Blood Count 8.8 K/mm3 (4.4-11.0)
[2024-04-28 20:41] LABS: Anion Gap 7 (5-15); BUN 39 mg/dL (7-18); Calcium,Total 9.5 mg/dL (8.5-10.1); Chloride 96 mmol/L (98-107); EST Glomerular Filtration Rate 38 mL/min (>60); Est Glom Filt Rate - Afr Amer 46 mL/min (>60); Estimated Creatinine Clearance 48.21 ml/min; Glucose 276 mg/dL (74-106); Potassium 3.9 mmol/L (3.5-5.1); Sodium Level 135 mmol/L (136-145)
[2024-04-28] MEDS: Ondansetron 4 MG/2 ML Vial IV ×2 (20:52→23:50)
[2024-04-28] MEDS: Morphine 4 MG/ML Syringe IV ×2 (20:52→23:35)
[2024-04-28 20:58] LABS: Bacteria 0 SEEN /hpf (None Seen); Mucous, Urine 0 SEEN /hpf (<or=2+)
[2024-04-28 21:03] LABS: Color, Urine Yellow (Yellow); Glucose, Dipstick 1000 mg/dl (Normal); Ketone-Dipstick Negative (Negative); Leukocyte Esterase-Dipstick 500 /ul (Negative); Nitrite-Dipstick Negative (Negative); Occult Blood-Urine 150 /ul (Negative); Protein-Dipstick 100 mg/dl (Negative); Urine Bilirubin Dipstick Negative (Negative); Urine Clarity Sl. Cloudy (Clear); Urine Urobilinogen Normal (Normal); Urine pH 6.5 (5.0 - 8.0)
[2024-04-28 21:19] LABS: Red Blood Cells-Urine 10-25 SEEN /hpf (0-5); Renal Epithelial Cells 0-5 SEEN /hpf (0-5); Squamous Epithelial Cells - UA 5-10 SEEN /hpf (5-10); White Blood Cells 25-50 SEEN /hpf (0-5)
[2024-04-28 21:55] VITALS: BP 102/51; PULSE 76; RESP 18; O2SAT 97
[2024-04-28] MEDS: Ceftriaxone 1 GM/50 ML BAG IV (22:45)
[2024-04-29 00:03] VITALS: BP 105/74; PULSE 84; RESP 18; TEMP 36.6; O2SAT 95
== END 2024-04-29 00:03 | disposition home or self-care (01) ==
PROVIDERS: Emergency Provider Emergency Medicine; PCP Internal Medicine; Visit Provider Emergency Medicine
DX: N39.0 Urinary tract infection, site not specified (principal); E11.9 Type 2 diabetes mellitus without complications; Z79.4 Long term (current) use of insulin; R10.9 Unspecified abdominal pain; I10 Essential (primary) hypertension; E78.00 Pure hypercholesterolemia, unspecified; Z87.891 Personal history of nicotine dependence; Z79.85 Long-term (current) use of injectable non-insulin antidiabetic drugs; Z79.899 Other long term (current) drug therapy; E03.9 Hypothyroidism, unspecified; Z90.49 Acquired absence of other specified parts of digestive tract
CPT/HCPCS: 74176; 80048; 81001; 85025; 87086; 87088; 96365; 96375; 96376; 99283; A4216; J2405

== ENCOUNTER 2024-05-02 15:43 | Observation (INO) | payer MEDICAID, SELFPAY ==
[2024-05-02] VITALS (15 sets, daily range): BP systolic 78–138; BP diastolic 57–74; PULSE 75–94; RESP 16–18; TEMP 36.5–36.6; O2SAT 94–99; BMI 38.0
--- NOTE | 2024-05-02 16:00 | RAD_ITS ---
INDICATION: Injury/Pain EXAMINATION/TECHNIQUE: X-RAY - LEFT XR Shoulder Min 2 Views 2 VIEWS COMPARISON: FINDINGS: SOFT TISSUES: No soft tissue swelling or gas. No radiopaque foreign body. BONES/JOINTS: No acute fracture or subluxation.. There is elevation of the humeral head. Rotator cuff injury cannot be excluded. Mild hypertrophy at the acromioclavicular articulation.. No sclerotic or destructive changes observed. RAD/Shoulder min 2 Views IMPRESSION: Elevation of the humeral head. Rotator cuff injury cannot be excluded Mild hypertrophy at the acromioclavicular articulation.. Electronically Signed: Mariano Javed DO at 16:17 EDT Reading Location ID and State: [facility] / [place] Tel [phone], Service support ,
--- NOTE | 2024-05-02 16:00 | RAD_ITS ---
INDICATION: Injury/Pain EXAMINATION/TECHNIQUE: X-RAY - LEFT XR Elbow 2 Views COMPARISON: FINDINGS: SOFT TISSUES: No soft tissue swelling or gas. No radiopaque foreign body. BONES/JOINTS: There is no displacement of the anterior or posterior fat pads. No acute fracture or subluxation. Normal alignment. Preservation of the joint space. No sclerotic or destructive changes observed. RAD/Elbow 2 Views IMPRESSION: Negative. Electronically Signed: Mariano Javed DO at 16:14 EDT ,
[2024-05-02] MEDS: Ondansetron 4 MG/2 ML Vial IV (16:16)
[2024-05-02] MEDS: fentaNYL 100 MCG/2 ML Ampul 50 MCG IV (16:18)
[2024-05-02 16:24] LABS: Anion Gap 5 (5-15); BUN 32 mg/dL (7-18); BUN/Creat Ratio 18.8 RATIO (10-20); Calcium,Total 9.6 mg/dL (8.5-10.1); Chloride 104 mmol/L (98-107); EST Glomerular Filtration Rate 33 mL/min (>60); Est Glom Filt Rate - Afr Amer 40 mL/min (>60); Estimated Creatinine Clearance 41.58 ml/min; Glucose 204 mg/dL (74-106); Potassium 3.8 mmol/L (3.5-5.1); Sodium Level 141 mmol/L (136-145)
--- NOTE | 2024-05-02 17:37 | EKG12_ITS ---
Test Reason : FALL Blood Pressure : / mmHG Vent. Rate : 075 BPM Atrial Rate : 075 BPM P-R Int : 176 ms QRS Dur : 094 ms QT Int : 420 ms P-R-T Axes : 032 000 033 degrees QTc Int : 469 ms Normal sinus rhythm Normal ECG Confirmed by MIQUEL DUNNE, LYLY ([id number]), editor city JESSICA VILLA ([id number]) on 05/05/2024 10:20:26 AM Referred By: Confirmed By:JOHNNIE LAFLEUR MD
[2024-05-02] MEDS: 0.9% Normal Saline (500mL Bag) 500 ML 1000 ML IV (17:44)
--- NOTE | 2024-05-02 17:45 | EX.ED.GENINJ ---
HPI History of Present Illness Chief Complaint: Fall Detail of Chief Complaint: Patient presented because of mechanical fall injuring her right elbow and s Informant: patient Onset/Context/Timing Onset: Hours Mechanism/Context: Fall Location of pain/injuries: Left shoulder and Left elbow Quality of Pain: Dull and Aching Location: Left upper extremity, shoulder and elbow Current Severity: Mild Maximum Severity: Severe Worsened by: Attempt at passive or active movement Relieved by: Nothing Associated Symptoms Associated Symptoms: Positive for Loss of function; Negative for Parasthesias, Weakness, Inability to ambulate, Loss of consciousness or Amnesia Narrative Narrative: Patient is a 58-year-old [id number] woman. She has history of hypertension, hypothyroidism, type 2 diabetes on insulin, hypercholesterolemia lost her balance falling onto her left side. She denied head trauma. Denied loss conscious. She denies being dazed. She denies neck pain. She denies paresthesia, anesthesia motors upper or lower extremity. She denies chest pain or shortness of breath. Denies abdominal pain. She denies upper or lower back pain. She denies pain in her right upper extremity or her lower extremities. Prior similar symptoms: No Recent Illness/Hospitalization: No [facility] Medical History Chronic respiratory failure with hypoxia Pericardial effusion Thrombocytopenia Anemia Elevated lipase Urinary retention Obesity Former tobacco use UTI (urinary tract infection) Kidney stones Migraines Hypothyroid Hypercholesteremia Hypertension Type 2 diabetes mellitus Home Medications ?Medication ?Instructions ?Recorded ?Last Taken ?Type fluticasone propionate 50 2 spray QHS nasal spray 05/24/15 03/24/21 History mcg/actuation nasal spray,suspension dulaglutide 1.5 mg/0.5 mL 1.5 mg subcut JOHNSON dm 03/25/21 03/23/21 History subcutaneous pen injector (Trulicity) estradiol 0.01% (0.1 mg/gram) 3 g vaginal .2X/WEEK health 03/25/21 Unknown History vaginal cream maintenance fenofibrate 160 mg tablet 160 mg PO DAILY cholesterol 03/25/21 03/24/21 History gabapentin 300 mg capsule 300 mg PO QHS nerve pain 03/25/21 03/24/21 History levothyroxine 175 mcg tablet 175 mcg PO DAILY thyroid 03/25/21 03/24/21 History vitamin E 268 mg (400 unit) capsule 400 unit PO DAILY supplement 03/25/21 03/24/21 History dicyclomine 10 mg capsule 10 mg PO ACHS abdominal pain 07/06/21 Unknown History hydrochlorothiazide 12.5 mg capsule 12.5 mg PO DAILY diuretic 07/06/21 Unknown History insulin degludec 100 unit/mL (3 52 unit subcut QHS diabetes 07/06/21 Unknown History mL) subcutaneous pen (Tresiba FlexTouch U-100 insulin) ketorolac 0.5 % eye drops 1 drp ophthalmic (eye) Q6H eye 07/06/21 Unknown History lisinopril 2.5 mg tablet 2.5 mg PO DAILY blood pressure 07/06/21 Unknown History meloxicam 15 mg tablet 15 mg PO DAILY PRN Pain 07/06/21 Unknown History ondansetron 4 mg disintegrating 4 mg PO Q8H PRN nausea and 07/06/21 Unknown Rx tablet vomiting #10 tabs prednisolone acetate 1 % eye 1 drp ophthalmic (eye) Q6H eye 07/06/21 Unknown History drops,suspension rosuvastatin 10 mg tablet 10 mg PO DAILY cholesterol 07/06/21 Unknown History insulin lispro 100 unit/mL 8 unit (0.08 mL) subcut TIDCM #0 mL 07/21/21 Unknown Rx subcutaneous pen (Humalog KwikPen (U-100) Insulin) furosemide 40 mg tablet 40 mg PO DAILY PRN swelling 04/20/24 Unknown History hydrocodone-acetaminophen 5-325mg 1 tab PO TID PRN PRN pain 04/20/24 Unknown History 5mg-325mg hydroxyzine HCl 25 mg tablet 25 - 50 mg PO QHS PRN PRN sleep 04/20/24 Unknown History levothyroxine 150 mcg tablet 150 mcg PO DAILY 04/20/24 Unknown History ciprofloxacin HCl 500 mg tablet 500 mg PO BID #14 TABLETS 04/28/24 Unknown Rx promethazine 25 mg tablet 25 mg PO Q6H PRN PRN Nausea #10 04/28/24 Unknown Rx TABLETS Allergy/AdvReac Type Severity Reaction Status Date / Time metformin AdvReac Diarrhea Verified 05/02/24 15:51 oxycodone (From Percocet) AdvReac upset Verified 05/02/24 15:51 stomach/off balance Family History Mother Diabetes Father Diabetes Surgical History Previous section History of appendectomy Social History household members: none Smoking Status: Former smoker how long ago did patient quit smoking: Quit cigarette tobacco in 2015, 1 ppd since teenager until quit. alcohol intake: never substance use type: does not use ROS ROS ED Constitutional Constitutional ED: Denies chills, fever(s), subjective, sweats or weight loss Eyes Eyes: Denies blurry vision or change in vision ENT ENT ED: Reports other Details: She denies dental trauma. She denies epistaxis. ; Denies ear pain, rhinorrhea or sore throat Cardiovascular Cardiovascular: Denies chest pain, palpitations, paroxysmal nocturnal dyspnea or racing heartbeat Respiratory/Chest Respiratory/Chest: Denies cough, dyspnea, dyspnea on exertion or paroxysmal nocturnal dyspnea Gastrointestinal Gastrointestinal: Denies abdominal pain, melena, nausea or vomiting Genitourinary Genitourinary ED: Denies dysuria, hematuria or urinary frequency Musculoskeletal Musculoskeletal: Reports other Details: Left upper extremity pain as documented in the HPI narrative ; Denies arthralgias, back pain, myalgias or neck pain Integumentary Denies Abrasions or rash Neurologic Neurologic: Denies headache(s), paresthesias or weakness Endocrine Endocrinology: Denies cold intolerance or heat intolerance Hematologic/Lymphatic Hematologic/Lymphatic: Denies easy bleeding or easy bruising EXAM Physical Exam Const Vital Signs: 05/02/24 15:43 05/02/24 15:45 05/02/24 15:45 Temperature 97.7 F L Temperature Source Temporal Pulse Rate 76 75 Pulse Rate [Lying] Pulse Rate [Sitting (for 1 minute prior to obtaining)] Pulse Rate [Standing (for 1 minute prior to obtaining)] Respiratory Rate 16 16 Respiratory Effort Normal Respiratory Depth Normal Respiratory Pattern Normal Blood Pressure 102/60 102/60 Blood Pressure [Lying] Blood Pressure [Sitting (for 1 minute prior to obtaining)] Blood Pressure [Standing (for 1 minute prior to obtaining)] Blood Pressure Mean 74 74 Blood Pressure Mean [Lying] Blood Pressure Mean [Sitting (for 1 minute prior to obtaining)] Blood Pressure Mean [Standing (for 1 minute prior to obtaining)] Pulse Ox 97 97 Oxygen Delivery Method Nasal Cannula Nasal Cannula Nasal Cannula Oxygen Flow Rate (L/min) 2 2 2 05/02/24 16:08 05/02/24 17:28 05/02/24 18:25 Temperature Temperature Source Pulse Rate 76 76 Pulse Rate [Lying] Pulse Rate [Sitting (for 1 minute prior to obtaining)] Pulse Rate [Standing (for 1 minute prior to obtaining)] Respiratory Rate 16 16 Respiratory Effort Respiratory Depth Respiratory Pattern Blood Pressure 95/57 L 110/61 122/64 H Blood Pressure [Lying] Blood Pressure [Sitting (for 1 minute prior to obtaining)] Blood Pressure [Standing (for 1 minute prior to obtaining)] Blood Pressure Mean 69 77 83 Blood Pressure Mean [Lying] Blood Pressure Mean [Sitting (for 1 minute prior to obtaining)] Blood Pressure Mean [Standing (for 1 minute prior to obtaining)] Pulse Ox 96 97 Oxygen Delivery Method Nasal Cannula Nasal Cannula Oxygen Flow Rate (L/min) 2 05/02/24 19:00 05/02/24 19:15 05/02/24 19:30 Temperature Temperature Source Pulse Rate Pulse Rate [Lying] Pulse Rate [Sitting (for 1 minute prior to obtaining)] Pulse Rate [Standing (for 1 minute prior to obtaining)] Respiratory Rate Respiratory Effort Respiratory Depth Respiratory Pattern Blood Pressure 138/72 H 134/66 H 123/64 H Blood Pressure [Lying] Blood Pressure [Sitting (for 1 minute prior to obtaining)] Blood Pressure [Standing (for 1 minute prior to obtaining)] Blood Pressure Mean 91 82 82 Blood Pressure Mean [Lying] Blood Pressure Mean [Sitting (for 1 minute prior to obtaining)] Blood Pressure Mean [Standing (for 1 minute prior to obtaining)] Pulse Ox 96 95 95 Oxygen Delivery Method Oxygen Flow Rate (L/min) 05/02/24 20:05 05/02/24 20:38 05/02/24 20:41 Temperature Temperature Source Pulse Rate Pulse Rate [Lying] 89 Pulse Rate [Sitting (for 1 minute prior to obtaining)] 94 Pulse Rate [Standing (for 1 minute prior to obtaining)] 93 Respiratory Rate Respiratory Effort Respiratory Depth Respiratory Pattern Blood Pressure 122/74 H 118/57 L Blood Pressure [Lying] 122/74 H Blood Pressure [Sitting (for 1 minute prior to obtaining)] 118/57 L Blood Pressure [Standing (for 1 minute prior to obtaining)] 78/60 L Blood Pressure Mean 86 73 Blood Pressure Mean [Lying] 90 Blood Pressure Mean [Sitting (for 1 minute prior to obtaining)] 77 Blood Pressure Mean [Standing (for 1 minute prior to obtaining)] 66 Pulse Ox 97 97 Oxygen Delivery Method Oxygen Flow Rate (L/min) 05/02/24 20:45 05/02/24 20:48 Temperature Temperature Source Pulse Rate Pulse Rate [Lying] Pulse Rate [Sitting (for 1 minute prior to obtaining)] Pulse Rate [Standing (for 1 minute prior to obtaining)] Respiratory Rate Respiratory Effort Respiratory Depth Respiratory Pattern Blood Pressure 78/60 L 94/61 Blood Pressure [Lying] Blood Pressure [Sitting (for 1 minute prior to obtaining)] Blood Pressure [Standing (for 1 minute prior to obtaining)] Blood Pressure Mean 67 70 Blood Pressure Mean [Lying] Blood Pressure Mean [Sitting (for 1 minute prior to obtaining)] Blood Pressure Mean [Standing (for 1 minute prior to obtaining)] Pulse Ox 95 94 Oxygen Delivery Method Oxygen Flow Rate (L/min) Positive well nourished and well developed Constitutional Narrative: Patient appears uncomfortable. She will not move her left upper extremity. She has her left upper extremity internally rotated and held against her torso. General Appearance ED: well developed; Negative for NAD HEENT Reports TM's clear HEENT Narrative: There is no evidence of dental trauma. Posterior pharynx is normal. Mucosa and tongue are dry. atraumatic; Negative for tenderness Nose: Negative for septum abnormal Tympanic Membrane ED: Yes TM's clear Eyes PERRL and EOMs intact bilaterally General Eye ED: Yes other Other Details: There is no subconjunctival hemorrhage noted. Neck full ROM General: Negative for tenderness Chest Wall inspection of chest normal and palpation of chest normal Resp normal respiratory effort and clear to auscultation bilaterally Cardio regular rhythm, S1 normal heart sound, S2 normal heart sound and no murmurs Rate: regular rate GI normal to inspection, nondistended, normoactive bowel sounds, non-tender, non-distended and no masses Auscultation: normoactive bowel sounds Palpation: soft Back/Spine normal to inspection and no thoracic nor lumbar tenderness General Back: Negative for CVA tenderness Extremity normal to inspection; Negative for full ROM Extremity Narrative: There is pain outpatient over the proximal humerus as well as over the lateral and medial epicondyle and radial head. She has no discomfort over the olecranon process. Axillary, median, radial and ulnar function intact. Patient can abduct approximately 30 degrees. Radial pulses palpable. Neuro oriented x3, CN's II-XII intact bilaterally and moves all extremities Michael Coma Scale: document GCS findings Spontaneous Obeys Commands Oriented 15 Sensorium / Orientation: alert Plantar Reflex: Downgoing: bilateral Psych mental status grossly normal and thought process normal Skin no rashes or lesions noted, no wounds and no jaundice MDM MDM MDM Narrative Medical decision making narrative: Patient had a low blood pressure reading and was treated with fentanyl for her pain. X-ray of the shoulder and elbow were obtained to evaluate for contusion versus fracture versus dislocation. Patient had multiple low blood pressure readings. Cannot attribute this to the fentanyl she received. In light of this we will administer fluid bolus and add additional blood work to determine the cause of her hypotension. She states her pressure is normally high. She was initially given a liter of fluids clinically she appeared dehydrated and complained of thirst, dry mouth Lab Data Attestation: I reviewed the patient's lab results. Lab results narrative: CBC is unremarkable. Electrolyte panel is marked for an elevated BUN and creatinine of 30-1.7. Lactate is normal. Patient did receive fluid bolus. Patient had numerous low blood pressure readings. Will order additional fluid bolus and call hospitalist for 23 observation. Glucose is elevated at 204 with a normal CO2 and anion gap. Labs: Laboratory Results - last 24 hr 05/02/24 05/02/24 16:07 17:42 WBC 6.9 RBC 4.33 Hgb 12.2 Hct 38.4 MCV 88.7 MCH 28.2 MCHC 31.8 L RDW Std Deviation 44.5 H RDW Coeff of Catina 13.9 Plt Count 170 MPV 10.8 Immature Gran % (Auto) 0.900 Neut % (Auto) 71.6 H Lymph % (Auto) 19.6 Summers % (Auto) 6.0 Eos % (Auto) 1.5 Baso % (Auto) 0.4 Absolute Neuts (auto) 4.9 Absolute Lymphs (auto) 1.35 Nucleated RBC % 0 Sodium 141 Potassium 3.8 Chloride 104 Carbon Dioxide 32.0 Anion Gap 5 BUN 32 H Creatinine 1.70 H Estim Creat Clear Calc 41.58 Est GFR (MDRD) Af Amer 40 L Est GFR (MDRD) Non-Af 33 L BUN/Creatinine Ratio 18.8 Glucose 204 H Lactic Acid 0.8 Calcium 9.6 Radiography Chest X-Ray - ED: Read by ED Physician (Three-view x-ray of the elbow is negative. There is no anterior posterior fat pad. There is no subluxation, dislocation or fracture.) and - (Only 2 views of the shoulder were obtained. It does not appear dislocated is no obvious fracture. It does appear abnormal and question if it is high riding.) Diagnostic Testing: Clinical Impression(s) from Imaging Studies Elbow X-Ray 05/02/24 16:00 IMPRESSION: Negative. Electronically Signed: Mariano Javed DO at 16:14 EDT , Shoulder X-Ray 05/02/24 16:00 IMPRESSION: Elevation of the humeral head. Rotator cuff injury cannot be excluded Mild hypertrophy at the acromioclavicular articulation.. Electronically Signed: Mariano Javed DO at 16:17 EDT , Because of the abnormality noted on the shoulder x-ray waited to radiology report and raises concern for rotator cuff injury. This would make sense since patient not able to abduct past 30 degrees. EKG Initial EKG: Attestation: I personally reviewed and interpreted this EKG as follows: Interpretation: Sinus Rhythm (EKG is normal with a rate of 75. ID interval 176 ms. Cures duration 94 ms. QT duration 420 ms. [place] is normal.) Treatment and Re-Evaluation Narrative: Patient presented because she fell. With her having several low blood pressure readings and concerned she may fall and harm her self will contact hospitalist for observation versus admission. The cause of her hypotension is uncertain. Discharge Plan Dx/Rx/DC Orders Clinical Impression: Acute hypotension, Acute on chronic kidney failure, Rotator cuff injury, Contusion of left elbow, initial encounter, Type 2 diabetes mellitus treated with insulin, History of hypothyroidism Disposition Disposition: [facility]
[2024-05-02 18:05] LABS: Lactic Acid 0.8 mmol/L (0.4-1.9)
[2024-05-02 18:06] LABS: Absolute Lymphocyte Count 1.35 X10^3/uL (0.83-4.51); Absolute Neutrophil Count 4.9 X10^3/uL (2.0-7.7); Basophil# 0.03 X10^3/uL; Basophil% 0.4 % (0-1); Eosinophils% 1.5 % (0-5); Hematocrit 38.4 % (37-47); Hemoglobin 12.2 g/dL (12.0-15.0); Lymphocyte # 1.35 X10^3/ul (0.83-4.51); Lymphocyte % 19.6 % (19-41); Mean Corp Hgb Conc 31.8 g/dL (32-36); Mean Corpuscular Hgb 28.2 pg (27.0-32.0); Mean Corpuscular Volume 88.7 fL (81-99); Mean Platelet Vol. 10.8 fl (6.2-12.0); Monocyte# 0.41 X10^3/uL; NRBC Flagged by Analyzer 0 % (0-5); Neutrophil # 4.93 X10^3/uL (2.7-7.7); Neutrophil % 71.6 % (47-70); Platelet Count 170 K/mm3 (150-450); RBC Distribution Width CV 13.9 % (11.6-14.6); RBC Distribution Width SD 44.5 fl (35.1-43.9); Red Blood Count 4.33 M/mm3 (4.2-5.4); White Blood Count 6.9 K/mm3 (4.4-11.0)
[2024-05-02] MEDS: oxyCODONE 5 MG Tablet PO (19:05)
[2024-05-02] MEDS: 0.9% Normal Saline (1000mL) 1,000 ML 1000 ML IV (22:17)
--- NOTE | 2024-05-02 23:03 | PCM.HP.STD ---
[facility] - General General Date of Service: 05/02/24 Chief Complaint: Fall [facility] Narrative BETTY AGARWAL, is a 58 F who presents after a fall today. Patient states that she just lost her balance and fell landing on her left side. Did not lose consciousness. Was having pain in her left shoulder.She underwent x-rays that showed no fracture but may be a left rotator cuff tear. Patient was put in a sling just for comfort. Patient received fentanyl, oxycodone and morphine. Subsequently, patient was hypotensive, particularly orthostatic. Patient did receive some IV fluids and blood pressure has since improved but patient is just very weak and the hospitalist service was contacted for admission. [facility] Medical History Chronic respiratory failure with hypoxia Pericardial effusion Thrombocytopenia Anemia Elevated lipase Urinary retention Obesity Former tobacco use UTI (urinary tract infection) Kidney stones Migraines Hypothyroid Hypercholesteremia Hypertension Type 2 diabetes mellitus Home Medications ?Medication ?Instructions ?Recorded ?Last Taken ?Type fluticasone propionate 50 2 spray QHS nasal spray 05/24/15 03/24/21 History mcg/actuation nasal spray,suspension dulaglutide 1.5 mg/0.5 mL 1.5 mg subcut JOHNSON dm 03/25/21 03/23/21 History subcutaneous pen injector (Trulicity) estradiol 0.01% (0.1 mg/gram) 3 g vaginal .2X/WEEK health 03/25/21 Unknown History vaginal cream maintenance fenofibrate 160 mg tablet 160 mg PO DAILY cholesterol 03/25/21 03/24/21 History gabapentin 300 mg capsule 300 mg PO QHS nerve pain 03/25/21 03/24/21 History levothyroxine 175 mcg tablet 175 mcg PO DAILY thyroid 03/25/21 03/24/21 History vitamin E 268 mg (400 unit) capsule 400 unit PO DAILY supplement 03/25/21 03/24/21 History dicyclomine 10 mg capsule 10 mg PO ACHS abdominal pain 07/06/21 Unknown History hydrochlorothiazide 12.5 mg capsule 12.5 mg PO DAILY diuretic 07/06/21 Unknown History insulin degludec 100 unit/mL (3 52 unit subcut QHS diabetes 07/06/21 Unknown History mL) subcutaneous pen (Tresiba FlexTouch U-100 insulin) ketorolac 0.5 % eye drops 1 drp ophthalmic (eye) Q6H eye 07/06/21 Unknown History lisinopril 2.5 mg tablet 2.5 mg PO DAILY blood pressure 07/06/21 Unknown History meloxicam 15 mg tablet 15 mg PO DAILY PRN Pain 07/06/21 Unknown History ondansetron 4 mg disintegrating 4 mg PO Q8H PRN nausea and 07/06/21 Unknown Rx tablet vomiting #10 tabs prednisolone acetate 1 % eye 1 drp ophthalmic (eye) Q6H eye 07/06/21 Unknown History drops,suspension rosuvastatin 10 mg tablet 10 mg PO DAILY cholesterol 07/06/21 Unknown History insulin lispro 100 unit/mL 8 unit (0.08 mL) subcut TIDCM #0 mL 07/21/21 Unknown Rx subcutaneous pen (Humalog KwikPen (U-100) Insulin) furosemide 40 mg tablet 40 mg PO DAILY PRN swelling 04/20/24 Unknown History hydrocodone-acetaminophen 5-325mg 1 tab PO TID PRN PRN pain 04/20/24 Unknown History 5mg-325mg hydroxyzine HCl 25 mg tablet 25 - 50 mg PO QHS PRN PRN sleep 04/20/24 Unknown History levothyroxine 150 mcg tablet 150 mcg PO DAILY 04/20/24 Unknown History ciprofloxacin HCl 500 mg tablet 500 mg PO BID #14 TABLETS 04/28/24 Unknown Rx promethazine 25 mg tablet 25 mg PO Q6H PRN PRN Nausea #10 04/28/24 Unknown Rx TABLETS Allergy/AdvReac Type Severity Reaction Status Date / Time metformin AdvReac Diarrhea Verified 05/02/24 15:51 oxycodone (From Percocet) AdvReac upset Verified 05/02/24 15:51 stomach/off balance Family History Mother Diabetes Father Diabetes Surgical History Previous section History of appendectomy Social History household members: none Smoking Status: Former smoker how long ago did patient quit smoking: Quit cigarette tobacco in 2015, 1 ppd since teenager until quit. alcohol intake: never substance use type: does not use ROS ROS Narrative On oxygen chronically due to history of COVID. No new respiratory symptoms. All review of systems were negative except as mentioned above in the history of present illness and the other review of systems. Vital Signs Vital Signs Vital Signs: 05/02/24 15:43 05/02/24 15:45 05/02/24 15:45 Temperature 36.5 C L Temperature Source Temporal Pulse Rate 76 75 Pulse Rate [Lying] Pulse Rate [Sitting (for 1 minute prior to obtaining)] Pulse Rate [Standing (for 1 minute prior to obtaining)] Respiratory Rate 16 16 Respiratory Effort Normal Respiratory Depth Normal Respiratory Pattern Normal Blood Pressure 102/60 102/60 Blood Pressure [Lying] Blood Pressure [Sitting (for 1 minute prior to obtaining)] Blood Pressure [Standing (for 1 minute prior to obtaining)] Blood Pressure Mean 74 74 Blood Pressure Mean [Lying] Blood Pressure Mean [Sitting (for 1 minute prior to obtaining)] Blood Pressure Mean [Standing (for 1 minute prior to obtaining)] Pulse Ox 97 97 Oxygen Delivery Method Nasal Cannula Nasal Cannula Nasal Cannula Oxygen Flow Rate (L/min) 2 2 2 05/02/24 16:08 05/02/24 17:28 05/02/24 18:25 Temperature Temperature Source Pulse Rate 76 76 Pulse Rate [Lying] Pulse Rate [Sitting (for 1 minute prior to obtaining)] Pulse Rate [Standing (for 1 minute prior to obtaining)] Respiratory Rate 16 16 Respiratory Effort Respiratory Depth Respiratory Pattern Blood Pressure 95/57 L 110/61 122/64 H Blood Pressure [Lying] Blood Pressure [Sitting (for 1 minute prior to obtaining)] Blood Pressure [Standing (for 1 minute prior to obtaining)] Blood Pressure Mean 69 77 83 Blood Pressure Mean [Lying] Blood Pressure Mean [Sitting (for 1 minute prior to obtaining)] Blood Pressure Mean [Standing (for 1 minute prior to obtaining)] Pulse Ox 96 97 Oxygen Delivery Method Nasal Cannula Nasal Cannula Oxygen Flow Rate (L/min) 2 05/02/24 19:00 05/02/24 19:15 05/02/24 19:30 Temperature Temperature Source Pulse Rate Pulse Rate [Lying] Pulse Rate [Sitting (for 1 minute prior to obtaining)] Pulse Rate [Standing (for 1 minute prior to obtaining)] Respiratory Rate Respiratory Effort Respiratory Depth Respiratory Pattern Blood Pressure 138/72 H 134/66 H 123/64 H Blood Pressure [Lying] Blood Pressure [Sitting (for 1 minute prior to obtaining)] Blood Pressure [Standing (for 1 minute prior to obtaining)] Blood Pressure Mean 91 82 82 Blood Pressure Mean [Lying] Blood Pressure Mean [Sitting (for 1 minute prior to obtaining)] Blood Pressure Mean [Standing (for 1 minute prior to obtaining)] Pulse Ox 96 95 95 Oxygen Delivery Method Oxygen Flow Rate (L/min) 05/02/24 20:05 05/02/24 20:38 05/02/24 20:41 Temperature Temperature Source Pulse Rate Pulse Rate [Lying] 89 Pulse Rate [Sitting (for 1 minute prior to obtaining)] 94 Pulse Rate [Standing (for 1 minute prior to obtaining)] 93 Respiratory Rate Respiratory Effort Respiratory Depth Respiratory Pattern Blood Pressure 122/74 H 118/57 L Blood Pressure [Lying] 122/74 H Blood Pressure [Sitting (for 1 minute prior to obtaining)] 118/57 L Blood Pressure [Standing (for 1 minute prior to obtaining)] 78/60 L Blood Pressure Mean 86 73 Blood Pressure Mean [Lying] 90 Blood Pressure Mean [Sitting (for 1 minute prior to obtaining)] 77 Blood Pressure Mean [Standing (for 1 minute prior to obtaining)] 66 Pulse Ox 97 97 Oxygen Delivery Method Oxygen Flow Rate (L/min) 05/02/24 20:45 05/02/24 20:48 05/02/24 22:00 Temperature Temperature Source Pulse Rate 84 Pulse Rate [Lying] Pulse Rate [Sitting (for 1 minute prior to obtaining)] Pulse Rate [Standing (for 1 minute prior to obtaining)] Respiratory Rate 18 Respiratory Effort Respiratory Depth Respiratory Pattern Blood Pressure 78/60 L 94/61 125/60 H Blood Pressure [Lying] Blood Pressure [Sitting (for 1 minute prior to obtaining)] Blood Pressure [Standing (for 1 minute prior to obtaining)] Blood Pressure Mean 67 70 81 Blood Pressure Mean [Lying] Blood Pressure Mean [Sitting (for 1 minute prior to obtaining)] Blood Pressure Mean [Standing (for 1 minute prior to obtaining)] Pulse Ox 95 94 98 Oxygen Delivery Method Nasal Cannula Oxygen Flow Rate (L/min) 2 05/02/24 22:17 Temperature 36.6 C Temperature Source Pulse Rate 81 Pulse Rate [Lying] Pulse Rate [Sitting (for 1 minute prior to obtaining)] Pulse Rate [Standing (for 1 minute prior to obtaining)] Respiratory Rate 17 Respiratory Effort Respiratory Depth Respiratory Pattern Blood Pressure 125/60 H Blood Pressure [Lying] Blood Pressure [Sitting (for 1 minute prior to obtaining)] Blood Pressure [Standing (for 1 minute prior to obtaining)] Blood Pressure Mean 81 Blood Pressure Mean [Lying] Blood Pressure Mean [Sitting (for 1 minute prior to obtaining)] Blood Pressure Mean [Standing (for 1 minute prior to obtaining)] Pulse Ox 99 Oxygen Delivery Method Oxygen Flow Rate (L/min) Weight Weight: 100.5 kg Body Mass Index (BMI) 38.0 Physical Exam Const alert and no apparent distress Constitutional Narrative: No respiratory distress. No conversational dyspnea. HEENT normocephalic and head/scalp atraumatic Neck no lymphadenopathy and supple Resp normal respiratory effort, no retractions, no use of accessory muscles and clear to auscultation bilaterally Cardio regular rate, regular rhythm, S1 normal heart sound and S2 normal heart sound GI normal to inspection, nondistended, normoactive bowel sounds, soft to palpation, non-tender and non-distended Extremity normal to inspection and full ROM Neuro Sensorium / Orientation: awake, alert and oriented to person Psych affect normal Results Lab / Micro Data Attestation: I reviewed the patient's lab results. 05/02/24 17:42 05/02/24 16:07 Labs: Laboratory Results - last 24 hr 05/02/24 16:07: Sodium 141, Potassium 3.8, Chloride 104, Carbon Dioxide 32.0, Anion Gap 5, BUN 32 H, Creatinine 1.70 H, Estim Creat Clear Calc 41.58, Est GFR (MDRD) Af Amer 40 L, Est GFR (MDRD) Non-Af 33 L, BUN/Creatinine Ratio 18.8, Glucose 204 H, Calcium 9.6 05/02/24 17:42: WBC 6.9, RBC 4.33, Hgb 12.2, Hct 38.4, MCV 88.7, MCH 28.2, MCHC 31.8 L, RDW Std Deviation 44.5 H, RDW Coeff of Catina 13.9, Plt Count 170, MPV 10.8, Immature Gran % (Auto) 0.900, Neut % (Auto) 71.6 H, Lymph % (Auto) 19.6, Merrick % (Auto) 6.0, Eos % (Auto) 1.5, Baso % (Auto) 0.4, Absolute Neuts (auto) 4.9, Absolute Lymphs (auto) 1.35, Nucleated RBC % 0, Lactic Acid 0.8 Imaging Radiology Impression Elbow X-Ray 05/02/24 16:00 IMPRESSION: Negative. Electronically Signed: Mariano Javed DO at 16:14 EDT , Shoulder X-Ray 05/02/24 16:00 IMPRESSION: Elevation of the humeral head. Rotator cuff injury cannot be excluded Mild hypertrophy at the acromioclavicular articulation.. Electronically Signed: Mariano Javed DO at 16:17 EDT , Assessment & Plan Assessment/Plan (1) Debility: (2) Acute hypotension: PLAN: Plan Fall/debility Patient states that she lost her balance is which is why she fell. She did not lose consciousness. She was hypotensive in the emergency room but that was after receiving narcotics and that may have been iatrogenic not sure that she was hypotensive which led her to fall. I suspect, given her poor baseline performance status that may have been more the cause of her fall but since she injured her shoulder, fortunately no fractures or dislocations, this can limit her ability to get around further. Patient will be brought in under observation status, she will be seen by physical and Occupational Therapy. Case management to assist on disposition. Hypotension, acute Appears to be resolved at this time. I am concerned that may have been iatrogenic due to the narcotics that she had received. She did receive IV fluids in the emergency room. Blood pressure is currently better. Will monitor for now. Hold any diuretics or antihypertensives at this time. Left shoulder pain No fracture or dislocation. May have sustained a left rotator cuff tear. Advised patient that she will just need to have therapy for that and she will be weightbearing as tolerated in her left shoulder. Also informed her that after therapy she does not have any relief that she may need orthopedics to see about having that repaired. Diabetes mellitus type 2: Waiting on the medications to be reconciled. Sliding scale insulin. Chronic conditions CKD 3: Stable. DVT prophylaxis: Low risk given observation status. Charges/Coding Visit Charges Inpatient E&M: 49882 Init Hosp L2
[2024-05-03] VITALS (7 sets, daily range): BP systolic 92–129; BP diastolic 47–80; PULSE 72–81; RESP 15–20; TEMP 36.3–36.9; O2SAT 92–99; BMI 38.0
[2024-05-03] MEDS: Meloxicam 15 MG Tablet PO (00:50)
[2024-05-03] MEDS: HYDROcodone Bitartrate/Apap 5/325 Tablet PO ×3 (00:50→20:16)
[2024-05-03] MEDS: Levothyroxine 100 MCG Tablet 200 MCG PO (05:44)
[2024-05-03] MEDS: Acetaminophen 500 MG Tablet 1000 MG PO ×3 (05:44→22:32)
[2024-05-03] MEDS: prednisoLONE eye drops (5 mL) 1 DROP OPTH.BTL 1 DRP RIGHT EYE ×3 (05:45→16:11)
[2024-05-03] MEDS: Dicyclomine 10 MG Capsule PO ×4 (06:41→22:32)
[2024-05-03] MEDS: Insulin Lispro 100 UNIT/ML INSULN.PEN 8 UNIT SC ×3 (08:16→16:10)
[2024-05-03] MEDS: Insulin Lispro 100 UNIT/ML INSULN.PEN SC ×3 (08:17→16:11)
[2024-05-03 08:31] LABS: Bedside Glucose 155 mg/dL (74-106)
--- NOTE | 2024-05-03 10:00 | CASEMGMT ---
Addendum entered by Eusebio Olmedo 05/03/24 16:11: Pt made aware [facility] able to accept her. Addendum entered by Eusebio Olmedo 05/03/24 15:56: Per Lucero @ [facility], they are able to accept pt. SOC date is not determined as of yet. Lucero to f/u with Greta GREGORY CM, tomorrow. Addendum entered by Eusebio Olmedo 05/03/24 15:36: 1400: Pt has reviewed [facility] list. [facility] is 1st choice. [facility] 2nd choice. [facility] is 3rd. Call placed to Lucero @ [facility] and referral made. Awaiting response re: acceptance. Script for WW obtained from Dr Mora and placed on chart. Pt to be given WW prior to discharge. Original Note: RN?CM?VOCATIONAL REHABILITATION SPECIALIST?CM?to room to meet with patient for initial transition planning/care coordination?assessment.?RN?CM?introduced self and role at [facility].? Pt voices understanding and consents to?assessment?at this time.? Pt resting in bed in no distress at this time.? Pt is A/O at this time and answers all questions appropriately.?? Care providers, pharmacy, and demographics verified/updated at this time. Strata: 3 PCP:Dr Rabago Specialists:Dr Rosana Navarro, pulmonology; Dr Duenas, endo; Dr Douglas, neurology; Dr Zamora, ophthalmology Preferred Pharmacy: [facility] Insurance: [facility] Prescription Benefit: yes LW/HPOA: Pt denies having a LW/DPOA and would like to complete while @ [facility]. SW notified. LNOK: Mayte, sister. Brother. Ann-Marie Romero, sister in law. Pt states she has one son whom lives w/her and states he has mental health issues and she is his legal guardian. Pt's father is still living, but she states he is 85-yr-old and lives w/her brother next door. Living Arrangements: Pt lives with son. She reports she is I in ADL's and denies concerns at home. States her son assists her if needed & can do home mgnt tasks, including preparing meals, if needed. Pt denies concerns at home. Transportation: Niece, bro-in-law, sis-in-law. Niece usually picks her up to take her to the grocery store and then once in the store she uses the motorized cart. DME: Pt has a Taylor sensor for BGM and checks it 3-4x/day. She states she has sufficient supplies, insulin, and medications. Pt also has a shower chair, pulse ox, cane, and rollator at home (friend gave her the rollator). Pt has oxygen through [employer]. Reports she uses 2 L/M @ rest and 4L/M w/exertion. This was verified w/[employer]. Pt has a portable O2 tank in her room to go home on @ dc. Pt would like a WW @ dc and states [employer] is 1st preference. HHC/SNF: Pt denies hx of HHC or SNF stays. Discussed discharge planning. Pt states she does not want to go to a SNF and wishes to discharge home. She states she feels she will be safe @ home w/her son's assistance in the home, and feels she will be able to do her own self-care. She would like HHC. A list of HHC providers including quality and resource use data and consistent with the patient?s preferred geographic region, medical needs, and insurance network were provided from the [employer] Guide. Pt states she will review this and to choose top 3 preferences. Pt states no further concerns with going home at time of dc. CM to follow. Advised pt to ask CM if any further question/concerns/needs arise, voices understanding. Plan: Home w/HHC and WW. Brittany MARTINEZ RN, CM
[2024-05-03] MEDS: Ciprofloxacin 500 MG Tablet PO ×2 (10:41→22:33)
[2024-05-03] MEDS: Tamsulosin HCl 0.4 MG Capsule PO (10:41)
[2024-05-03] MEDS: Pantoprazole Sodium 40 MG Tablet PO (10:41)
[2024-05-03] MEDS: Gabapentin 600 MG Tablet PO ×2 (10:41→22:32)
[2024-05-03] MEDS: Cholecalciferol (Vit D3) 125 MCG CAPSULE (5,000 UNITS) PO (10:41)
[2024-05-03] MEDS: Empagliflozin 25 MG Tablet PO (10:41)
--- NOTE | 2024-05-03 11:39 | CASEMGMT ---
Social Work SW recieved referral for advance directives. SW met with pt and introduced self and role of SW. SW explained living will and HCPOA and pt choosing to complete documents at this time. SW assisted with completing of documents. Pt naming her brother Franco Rodriguez as HCPOA. Original given to pt and copy placed on pt chart. SAHIL Bonner
[2024-05-03 12:31] LABS: Bedside Glucose 240 mg/dL (74-106)
[2024-05-03] MEDS: 0.9% Normal Saline (1000mL) 1,000 ML 75 ML IV (14:00)
--- NOTE | 2024-05-03 14:56 | CHAPLAIN ---
Type of Pastoral Visit _x__ Initial Visit ___ Follow-up Visit ___ On-call Visit ___ General Patient Visit ___ Spiritual Assessment ___ Family Conference ___ Bereavement ___ Rapid Response ___ Code Blue ___ Other (describe below) Pastoral Care Referral From _x__ Patient ___ Family ___ Nurse ___ Physician ___ Applications Developer ___ Parts Professional ___ Other (describe below) Sacrament/Intervention _x__ Active listening ___ Anointing ___ Adventism ___ Bereavement ___ Communion ___ Vicky exploration ___ ___ Life review _x__ Prayer ___ Reconciliation ___ Sacrament of Sick _x__ Supportive presence ___ Wedding ___ Other (describe below) Pastoral Comments patient answers questions and indicates that a prayer would be her preferred manner for support; pt speaks of having been just fine until she lost her balance and fell; pt does not engage in conversation and does not seek further interventions
--- NOTE | 2024-05-03 15:22 | PN.HOSP_ITS ---
Subjective Subjective Doing well, no issues overnight. Repeated orthostatic vital signs today and while they were negative she was symptomatic with lightheadedness and dizziness during the procedure Objective Data Objective Data Vital Signs: Vital Signs Temp Pulse Resp BP Pulse Ox O2 Del Method O2 Flow Rate 97.6 F L 77 16 92/54 L 94 Nasal Cannula 2 05/03/24 14:14 05/03/24 14:08 05/03/24 14:14 05/03/24 14:08 05/03/24 14:14 05/03/24 14:14 05/03/24 14:14 Oxygen Flow Rate (L/min) 2 Oxygen Delivery Method Nasal Cannula Weight: 221 lb 8 oz Body Mass Index (BMI) 38.0 Intake & Output: Intake and Output for Last 24 Hours 05/02/24 05/03/24 05/04/24 03:59 03:59 03:59 Intake Total 1500 / 1500 50 / 50 Balance 1500 / 1500 50 / 50 Lab / Micro Data 05/02/24 17:42 05/02/24 16:07 Labs: Laboratory Results - last 24 hr 05/02/24 16:07: Sodium 141, Potassium 3.8, Chloride 104, Carbon Dioxide 32.0, Anion Gap 5, BUN 32 H, Creatinine 1.70 H, Estim Creat Clear Calc 41.58, Est GFR (MDRD) Af Amer 40 L, Est GFR (MDRD) Non-Af 33 L, BUN/Creatinine Ratio 18.8, G lucose 204 H, Calcium 9.6 05/02/24 17:42: WBC 6.9, RBC 4.33, Hgb 12.2, Hct 38.4, MCV 88.7, MCH 28.2, MCHC 31.8 L, RDW Std Deviation 44.5 H, RDW Coeff of Catina 13.9, Plt Count 170, MPV 10.8, Immature Gran % (Auto) 0.900, Neut % (Auto) 71.6 H, Lymph % (Auto) 19.6, Cottle % (Auto) 6.0, Eos % (Auto) 1.5, Baso % (Auto) 0.4, Absolute Neuts (auto) 4.9, Absolute Lymphs (auto) 1.35, Nucleated RBC % 0, Lactic Acid 0.8 05/03/24 08:13: POC Glucose 155 H 05/03/24 12:07: POC Glucose 240 H Radiography Diagnostic Testing: Radiology Impression Elbow X-Ray 05/02/24 16:00 IMPRESSION: Negative. Electronically Signed: Mariano Javed DO at 16:14 EDT , Shoulder X-Ray 05/02/24 16:00 IMPRESSION: Elevation of the humeral head. Rotator cuff injury cannot be excluded Mild hypertrophy at the acromioclavicular articulation.. Electronically Signed: Mariano Javed DO at 16:17 EDT , Physical Exam Narrative General: Alert, Oriented x3, Cooperative, No apparent distress HEENT: Atraumatic, PERRLA, EOMI, Normocephalic Oral: Moist Mucosa Neck: Supple, No JVD Lungs: Diminished, Normal air movement, No rhonchi, No wheeze, No rales Cardiovascular: Regular rate, Regular Rhythm, Normal S1, Normal S2, No murmurs Abdomen: Soft, Non Tender, Non-Distended, No Hepato-splenomegaly Extremities: No edema, Capillary Refill Less than 3 Seconds Skin: No rashes, No breakdown Musculoskeletal: Tenderness palpation of the left shoulder Neurological: No focal neurological deficits, Motor Exam 5/5 strength throughout, Sensory exam intact to light touch and pain Psych/Mental Status: Normal Affect, Appropriate Assessment & Plan Assessment/Plan (1) Debility: (2) Acute hypotension: PLAN: Plan 1. Weakness and debility status post mechanical fall with left shoulder pain ? X-rays did not show a fracture dislocation ? Continue with sling ? PT/OT ? Pain management ? Repeated orthostatics today and they were negative however she was little hypotensive still and lightheaded and dizzy when up with the orthostatic vital signs, the hypotension could be due to the narcotics as she also received a [place] today prior to the orthostatic vital signs ? Refuses SNF 2. Essential HTN/HLD ? Blood pressures little bit on the low side ? Will hold her blood pressure medications ? Monitor make adjustments as necessary ? Continue with Crestor 3. DM2 ? Hold her home medications ? Continue with insulin ? Accu-Cheks ACHS ? Will monitor make adjustments as necessary 4. Recent UTI ? Culture with mixed gram-positive and gram-negative's ? Complete Cipro tomorrow 5. Hypothyroidism ? Stable ? Continue Synthroid 6. GERD ? Stable ? Continue with PPI DVT: Ambulation Charges/Coding Visit Charges Inpatient E&M: 62385 Subs Hosp L2
[2024-05-03 16:31] LABS: Bedside Glucose 277 mg/dL (74-106)
[2024-05-03] MEDS: Atorvastatin Calcium 20 MG Tablet PO (22:32)
[2024-05-03] MEDS: Fluticasone 0.05% 1 SPRAY NASAL.SRY 2 SPRAY NASAL (22:33)
[2024-05-03] MEDS: Insulin Glargine-YFGN 100 UNIT/ML Pen 86 UNIT SC (22:44)
[2024-05-03 23:06] LABS: Bedside Glucose 240 mg/dL (74-106)
[2024-05-04] MEDS: Meloxicam 15 MG Tablet PO (01:04)
[2024-05-04 02:19] VITALS: BP 102/48; PULSE 68; RESP 15; TEMP 36.5; O2SAT 97
[2024-05-04 02:40] LABS: Bedside Glucose 229 mg/dL (74-106)
[2024-05-04] MEDS: 0.9% Normal Saline (1000mL) 1,000 ML 75 ML IV (03:55)
[2024-05-04] MEDS: Levothyroxine 100 MCG Tablet 200 MCG PO (06:19)
[2024-05-04] MEDS: Acetaminophen 500 MG Tablet 1000 MG PO (06:19)
[2024-05-04] MEDS: prednisoLONE eye drops (5 mL) 1 DROP OPTH.BTL 1 DRP RIGHT EYE ×3 (06:20→12:08)
[2024-05-04] MEDS: Dicyclomine 10 MG Capsule PO ×2 (06:22→10:45)
[2024-05-04 06:57] LABS: Bedside Glucose 249 mg/dL (74-106)
[2024-05-04 07:35] LABS: Absolute Lymphocyte Count 1.11 X10^3/uL (0.83-4.51); Absolute Neutrophil Count 4.2 X10^3/uL (2.0-7.7); Basophil# 0.02 X10^3/uL; Basophil% 0.3 % (0-1); Eosinophil# 0.17 X10^3/uL; Eosinophils% 2.9 % (0-5); Hematocrit 32.3 % (37-47); Lymphocyte # 1.11 X10^3/ul (0.83-4.51); Lymphocyte % 18.9 % (19-41); Mean Corpuscular Hgb 28.5 pg (27.0-32.0); Mean Platelet Vol. 11.3 fl (6.2-12.0); Monocyte# 0.34 X10^3/uL; Monocyte% 5.8 % (0-10); NRBC Flagged by Analyzer 0 % (0-5); Neutrophil % 71.4 % (47-70); Platelet Count 118 K/mm3 (150-450); RBC Distribution Width CV 14.1 % (11.6-14.6); RBC Distribution Width SD 47.5 fl (35.1-43.9); Red Blood Count 3.51 M/mm3 (4.2-5.4); White Blood Count 5.9 K/mm3 (4.4-11.0)
[2024-05-04 08:19] LABS: Anion Gap 2 (5-15); BUN 32 mg/dL (7-18); BUN/Creat Ratio 22.4 RATIO (10-20); Calcium,Total 8.8 mg/dL (8.5-10.1); Chloride 107 mmol/L (98-107); Creatinine, Serum 1.43 mg/dL (0.55-1.02); EST Glomerular Filtration Rate 40 mL/min (>60); Est Glom Filt Rate - Afr Amer 48 mL/min (>60); Estimated Creatinine Clearance 49.42 ml/min; Glucose 260 mg/dL (74-106); Potassium 3.8 mmol/L (3.5-5.1); Sodium Level 140 mmol/L (136-145)
[2024-05-04] MEDS: Insulin Lispro 100 UNIT/ML INSULN.PEN SC ×2 (08:29→12:09)
[2024-05-04] MEDS: Insulin Lispro 100 UNIT/ML INSULN.PEN 8 UNIT SC ×2 (08:30→12:10)
[2024-05-04] MEDS: Tamsulosin HCl 0.4 MG Capsule PO (08:31)
[2024-05-04] MEDS: Cholecalciferol (Vit D3) 125 MCG CAPSULE (5,000 UNITS) PO (08:31)
[2024-05-04] MEDS: Ciprofloxacin 500 MG Tablet PO (08:32)
[2024-05-04] MEDS: Empagliflozin 25 MG Tablet PO (08:32)
[2024-05-04] MEDS: Pantoprazole Sodium 40 MG Tablet PO (08:32)
--- NOTE | 2024-05-04 09:56 | CASEMGMT ---
Addendum entered by Greta Collins 05/04/24 12:52: COLT ORTIZ into pt room, pt walker has not been delivered yet. Pt is aware this will be delivered to the room. Pt aware that [facility] will be in touch with her and will start on Wednesday. Pt denies any further homegoing needs at this time. Addendum entered by Greta Collins 05/04/24 12:15: Spoke with Lucero at [facility], she is aware plan is for pt to dc today. Original Note: [place] [facility] [place] [facility] at this time.
[2024-05-04] MEDS: Gabapentin 600 MG Tablet PO (10:46)
[2024-05-04 10:51] VITALS: PULSE 70
[2024-05-04 11:52] VITALS: BP 112/63; BP 117/66; BP 124/67; PULSE 67; PULSE 71; PULSE 73
[2024-05-04 12:06] VITALS: BP 112/63; PULSE 74; RESP 14; TEMP 36.6; O2SAT 94
--- NOTE | 2024-05-04 12:11 | PCM.DC.SUM ---
Providers Date of Admission: 05/02/24 Date of Discharge: 05/04/24 Primary Care Physician: Dr. Rebeka Rabago MD Reason For Visit: FALL Diagnosis Discharge Diagnosis (1) Debility: Status: Acute Code(s): R53.81 - Other malaise (2) Acute hypotension: Status: Acute Code(s): I95.9 - Hypotension, unspecified (3) Rotator cuff injury: Status: Acute Code(s): S46.009A - Unspecified injury of muscle(s) and tendon(s) of the rotator cuff of unspecified shoulder, initial encounter (4) Contusion of left elbow, initial encounter: Status: Acute Code(s): S50.02XA - Contusion of left elbow, initial encounter Medications at Discharge Home Medications fluticasone propionate 50 mcg/actuation nasal spray,suspension 2 spray QHS nasal spray 05/24/15 dulaglutide 1.5 mg/0.5 mL subcutaneous pen injector (Trulicity) 1.5 mg subcut JOHNSON dm 03/25/21 estradiol 0.01% (0.1 mg/gram) vaginal cream 3 g vaginal .2X/WEEK health maintenance 03/25/21 fenofibrate 160 mg tablet 160 mg PO DAILY cholesterol 03/25/21 vitamin E 268 mg (400 unit) capsule 400 unit PO DAILY supplement 03/25/21 dicyclomine 10 mg capsule 10 mg PO ACHS abdominal pain 07/06/21 hydrochlorothiazide 12.5 mg capsule 12.5 mg PO DAILY diuretic 07/06/21 insulin degludec 100 unit/mL (3 mL) subcutaneous pen (Tresiba FlexTouch U-100 insulin) 86 unit subcut QHS diabetes 07/06/21 ketorolac 0.5 % eye drops 1 drp ophthalmic (eye) Q6H eye 07/06/21 lisinopril 2.5 mg tablet 2.5 mg PO DAILY blood pressure 07/06/21 meloxicam 15 mg tablet 15 mg PO DAILY PRN Pain 07/06/21 ondansetron 4 mg disintegrating tablet 4 mg PO Q8H PRN nausea and vomiting #10 tabs 07/06/21 prednisolone acetate 1 % eye drops,suspension 1 drp ophthalmic (eye) Q6H eye 07/06/21 rosuvastatin 10 mg tablet 10 mg PO DAILY cholesterol 07/06/21 insulin lispro 100 unit/mL subcutaneous pen (Humalog KwikPen (U-100) Insulin) 8 unit (0.08 mL) subcut TIDCM #0 mL 07/21/21 furosemide 40 mg tablet 40 mg PO DAILY PRN swelling 04/20/24 hydroxyzine HCl 25 mg tablet 25 - 50 mg PO QHS PRN PRN sleep 04/20/24 levothyroxine 150 mcg tablet 200 mcg PO DAILY 04/20/24 promethazine 25 mg tablet 25 mg PO Q6H PRN PRN Nausea #10 TABLETS 04/28/24 cholecalciferol (vitamin D3) 125 mcg (5,000 unit) capsule 125 mcg PO DAILY 05/03/24 empagliflozin 25 mg tablet (Jardiance) 25 mg PO DAILY 05/03/24 gabapentin 600 mg tablet 600 mg PO Q12H 05/03/24 omeprazole 40 mg capsule,delayed release 40 mg PO DAILY 05/03/24 tamsulosin 0.4 mg capsule 0.4 mg PO DAILY 05/03/24 hydrocodone-acetaminophen 5-325mg 5mg-325mg 1 tab PO TID PRN pain 5 days #15 tabs 05/04/24 Hospital Course Operations None Procedures - (Left elbow and shoulder x-rays) Summary of Care Provided Minutes Spent on Discharge: 35 Hospital Course: Patient is a 58-year-old female who presented [facility] ED on 05/02/2024 with left shoulder pain and weakness after a fall at home. Hospital course as noted below. Patient stable for discharge home with home health care on 05/04. 1. Mechanical fall with left shoulder pain, weakness with debility ? PT/OT/case management followed. Patient with left shoulder pain and left elbow contusion noted on admission. Shoulder and elbow x-rays were negative for fracture. Rotator cuff injury seems most likely. Placed in sling on admission and will provide on discharge for comfort; recommended that patient can discuss orthopedic surgery consult with her PCP going forward as needed. Pain control with hydrocodone?acetaminophen 5-325 mg for 5-day course on discharge. Patient with borderline therapy scores but refused SNF placement, discharged home with home health care in stable condition. 2. Borderline hypotension with orthostatic symptoms, history of hypertension ? Patient reported orthostatic symptoms on morning of 05/03. Orthostatic vitals negative, patient noted to be borderline hypotensive then and also on day of discharge. Repeat orthostatic vitals on day of discharge again negative and patient's symptoms improved. Will hold home lisinopril, hydrochlorothiazide, Jardiance and Lasix as needed on discharge. Recommended that patient discuss timing of restarting these medications if needed with her PCP. 3. Recent UTI, history of nephrolithiasis with surgical removal ? Diagnosed with UTI during recent ED visit on 04/28. Urine culture grew next gram-positive gram-negative organisms. Completed course of ciprofloxacin while here. Patient has history of large kidney stones in the past that had to be removed surgically. CT abdomen pelvis on 04/28 with no other process or stones identified. Unclear if home Flomax could be contributing to orthostatic symptoms but given recent UTI and her kidney stone history here, will continue Flomax on discharge. Chronic medical conditions: ? Obesity: BMI 38 on admit. Complicated hospital course, care and prognosis. ? Type 2 diabetes mellitus: Treated with reduced home regimen during hospitalization. Holding home Jardiance as above but otherwise patient okay to resume home insulin regimen and Trulicity weekly on discharge. ? Hypothyroidism: Continue home Synthroid. ? Hyperlipidemia: Continue home rosuvastatin. ? GERD: Continue home PPI. Total clinical time spent by myself addressing the patient's medical issues, reviewing all the data, and collaborating with patient's care team: 35 minutes. Physical Exam Const alert, oriented x3 and no apparent distress Constitutional Narrative: Middle-age female, appears older than stated age, obese, flat affect, otherwise sitting up comfortably in bedside chair, conversing normally, no acute distress. General Appearance: cooperative and comfortable HEENT normocephalic, head/scalp atraumatic, hearing grossly normal bilaterally, nasal mucous membranes and turbinates normal and moist oral mucous membranes Eyes PERRL, EOMs intact bilaterally and conjunctivae normal Neck full ROM Chest inspection of chest normal Resp normal respiratory effort, normal air movement, no use of accessory muscles and clear to auscultation bilaterally Cardio regular rate, regular rhythm, no murmurs and peripheral pulses 2+ throughout GI normal to inspection, nondistended, normoactive bowel sounds, soft to palpation, non-tender and non-distended Back/Spine normal ROM Extremity normal to inspection, full ROM and no pedal edema Skin no rashes or lesions noted Neuro no focal motor deficits and no sensory deficits noted Speech: speech normal Psych mental status grossly normal Psych Narrative: Flat affect. Weight / BMI Weight Weight: 100.471 kg Body Mass Index (BMI) 38.0 ABG / Lab / Microbiology Data 05/04/24 06:48 05/04/24 06:48 Laboratory: Laboratory Results - last 24 hr 05/03/24 12:07: POC Glucose 240 H 05/03/24 16:08: POC Glucose 277 H 05/03/24 22:42: POC Glucose 240 H 05/04/24 02:13: POC Glucose 229 H 05/04/24 06:39: POC Glucose 249 H 05/04/24 06:48: WBC 5.9, RBC 3.51 L, Hgb 10.0 L, Hct 32.3 L, MCV 92.0, MCH 28.5, MCHC 31.0 L, RDW Std Deviation 47.5 H, RDW Coeff of Catina 14.1, Plt Count 118 L, MPV 11.3, Immature Gran % (Auto) 0.700, Neut % (Auto) 71.4 H, Lymph % (Auto) 18.9 L, Mellette % (Auto) 5.8, Eos % (Auto) 2.9, Baso % (Auto) 0.3, Absolute Neuts (auto) 4.2, Absolute Lymphs (auto) 1.11, Nucleated RBC % 0, Sodium 140, Potassium 3.8, Chloride 107, Carbon Dioxide 31.0, Anion Gap 2 L, BUN 32 H, Creatinine 1.43 H, Estim Creat Clear Calc 49.42, Est GFR (MDRD) Af Amer 48 L, Est GFR (MDRD) Non-Af 40 L, BUN/Creatinine Ratio 22.4 H, Glucose 260 H, Calcium 8.8 Meaningful Use Info Meaningful Use Meaningful Use Diagnoses (Choose all that apply): None applicable Ischemic Stroke Statin Dosing Therapy Reference: STATIN DOSE THERAPY REFERENCE: * Patients > 75 years receive moderate or high dose statin therapy. * Patients 75 years or YOUNGER should receive HIGH intensity statin dose unless contraindicated. You will be required to document reason for non-treatment if statin daily dose does not meet guidelines. HIGH DOSE STATIN THERAPY DAILY Atorvastatin > than or = to 40 mg Rosuvastatin > than or = to 20 mg Amlodipine + Atorvastatin > than or = to 2.5/40 mg Ezetimibe + Simvastatin 10/80 mg Simvastatin 80mg Discharge Plan Admission Admit Date/Time: 05/02/24 22:58 Primary Reason for Your Visit: Fall with left shoulder pain and dizziness Attending Provider: Franky Haque Primary Care Provider: Rebeka Rabago Consulting Providers: Tavo Nielson; Kalia Mora Instructions Additional Instructions / Restrictions: Please take hydrocodone?acetaminophen only as needed for left shoulder pain for the next several days. Please hold off on taking lisinopril, hydrochlorothiazide, Jardiance and Lasix on discharge given your low blood pressures while here. Please discuss with your PCP (primary care doctor) on timing of restarting these medications. Discharge Orders/Prescriptions Prescriptions: New hydrocodone-acetaminophen 5-325 mg tablet 1 tab PO TID PRN (Reason: pain) 5 Days Qty: 15 0RF Continued fluticasone propionate 1 SPRAY spray,suspension 2 spray NASAL QHS Patient Comments: allergies estradiol 0.01 % (0.1 mg/gram) cream 3 g VAGINAL .2X/WEEK Patient Comments: insert 3 grams vaginally two times a week fenofibrate 160 mg tablet 160 mg PO DAILY Patient Comments: take 1 tablet by mouth once daily Trulicity 1.5 mg/0.5 mL pen injector 1.5 mg SUBCUT JOHNSON Patient Comments: inject 0.5 milliliters ( 1 AND 1/2 milligrams ) subcutaneously every week vitamin E 400 unit Capsule 400 unit PO DAILY meloxicam 15 mg tablet 15 mg PO DAILY PRN (Reason: Pain) Patient Comments: take 1 tablet by mouth once daily if needed for pain with food ketorolac 0.5 % drops 1 drp ophthalmic (eye) Q6H Patient Comments: instill 1 drop into left eye four times a day prednisolone acetate 1 % drops,suspension 1 drp ophthalmic (eye) Q6H Patient Comments: instill 1 drop into right eye four times a day dicyclomine 10 mg capsule 10 mg PO ACHS Patient Comments: take 1 capsule by mouth four times a day before meals and at bedtime FOR ABDOMINAL PAIN rosuvastatin 10 mg tablet 10 mg PO DAILY Patient Comments: take 1 tablet by mouth at bedtime insulin degludec [Tresiba FlexTouch U-100] 100 unit/mL (3 mL) insulin pen 86 unit SUBCUT QHS Patient Comments: INJECT 86 UNITS SUBCUTANEOUSLY DAILY AT BEDTIME ondansetron 4 mg tablet,disintegrating 4 mg PO Q8H PRN (Reason: nausea and vomiting) Qty: 10 0RF insulin lispro [Humalog KwikPen Insulin] 100 unit/mL Insulin Pen 8 unit subcut TIDCM Qty: 0 0RF hydroxyzine HCl 25 mg tablet 25 - 50 mg PO QHS PRN PRN (Reason: sleep) levothyroxine 150 mcg tablet 200 mcg PO DAILY promethazine 25 mg tablet 25 mg PO Q6H PRN PRN (Reason: Nausea) Qty: 10 0RF gabapentin 600 mg tablet 600 mg PO Q12H cholecalciferol (vitamin D3) 125 mcg (5,000 unit) capsule 125 mcg PO DAILY omeprazole 40 mg capsule,delayed release(DR/EC) 40 mg PO DAILY tamsulosin 0.4 mg capsule 0.4 mg PO DAILY Held hydrochlorothiazide 12.5 mg capsule 12.5 mg PO DAILY Hold Instructions: Resume on 06/04/24. Please discuss with your PCP prior to restarting. Patient Comments: take 1 capsule by mouth once daily lisinopril 2.5 mg tablet 2.5 mg PO DAILY Hold Instructions: Resume on 06/04/24. Please discuss with your PCP prior to restarting. Patient Comments: take 1 tablet by mouth once daily furosemide 40 mg tablet 40 mg PO DAILY PRN (Reason: swelling) Hold Instructions: Resume on 06/04/24. Please discuss with your PCP prior to restarting. Jardiance 25 mg tablet 25 mg PO DAILY Hold Instructions: Resume on 06/04/24. Please discuss with your PCP prior to restarting. Discontinued ciprofloxacin HCl 500 mg tablet 500 mg PO BID Qty: 14 0RF Referrals / Follow Up: Rebeka Rabago MD [Primary Care Provider] - Disposition Disposition (needs filled in before D/C Order can be placed): Home Health Service Charges/Coding Visit Charges Inpatient E&M: 82467 Disch Hosp >30min
[2024-05-04] MEDS: HYDROcodone Bitartrate/Apap 5/325 Tablet PO (12:16)
[2024-05-04 12:31] LABS: Bedside Glucose 226 mg/dL (74-106)
[2024-05-04 14:01] VITALS: O2SAT 94
== END 2024-05-04 15:30 | disposition home health service (06) ==
LOC: ED 22:03 → MS3 23:18
PROVIDERS: Family Medicine; Emergency Provider Emergency Medicine; PCP Internal Medicine; Visit Provider Hospitalist
DX: S50.02XA Contusion of left elbow, initial encounter (principal); E11.22 Type 2 diabetes mellitus with diabetic chronic kidney disease; Z79.4 Long term (current) use of insulin; N18.30 Chronic kidney disease, stage 3 unspecified; E78.00 Pure hypercholesterolemia, unspecified; E03.9 Hypothyroidism, unspecified; Z68.38 Body mass index [BMI] 38.0-38.9, adult; R53.1 Weakness; W19.XXXA Unspecified fall, initial encounter; Z87.891 Personal history of nicotine dependence; E66.9 Obesity, unspecified; I95.9 Hypotension, unspecified; Z79.85 Long-term (current) use of injectable non-insulin antidiabetic drugs; N39.0 Urinary tract infection, site not specified; R53.81 Other malaise; Z79.890 Hormone replacement therapy; I12.9 Hypertensive chronic kidney disease with stage 1 through stage 4 chronic kidney disease, or unspecified chronic kidney disease; Z79.899 Other long term (current) drug therapy
CPT/HCPCS: G0378 ×2; J7030 ×3; J7040; 36415; 73030; 73070; 80048; 82962; 83605; 85025; 93005; 96361; 96374; 96375; 97116; 97162; 97166; 97530; 97535; 99221; 99285; A4216; J2405

== ENCOUNTER 2024-09-19 16:15 | Emergency (ER) | payer MEDICAID, SELFPAY ==
[2024-09-19 16:16] VITALS: BP 145/96; PULSE 70; RESP 20; TEMP 36.8; O2SAT 97; BMI 42.1
--- NOTE | 2024-09-19 16:39 | CT_ITS ---
STUDY: CT ABDOMEN AND PELVIS WITH CONTRAST REASON FOR EXAM: Female, 59 years old. Left lower quadrant abdominal pain RADIATION DOSAGE (If Supplied By Facility): CTDIvol = ( 16.72 ) mGy, DLP = ( 1243.01 ) mGycm TECHNIQUE: Transaxial images were obtained from the dome of the diaphragm to the symphysis pubis without oral contrast. IV 100mL Isovue-370 was administered. Sagittal and coronal images were reconstructed. Individualized dose optimization techniques were used for this CT. COMPARISON: None. FINDINGS: The visualized lung bases are unremarkable. Right pulmonary hilar granulomatous calcifications. Pericardial effusion. There is a diffuse contour abnormality of the liver consistent with cirrhotic changes. Normal gallbladder and extrahepatic biliary system. Mildly enlarged spleen with granulomatous calcifications. Normal pancreas. Normal bilateral adrenal glands. Normal right kidney. Normal left kidney. Normal visualized stomach. Normal small intestine. Normal colon. The appendix is not visualized. Normal abdominal aorta. Normal inferior vena cava. Normal retroperitoneum. Focal gas in the urinary bladder with slight wall thickening. Normal abdominal wall. Normal osseous structures. CT/Abdomen/Pelvis W IV Cont ONLY IMPRESSION: Focal gas in the urinary bladder with slight wall thickening Cirrhosis with mild splenomegaly. Pericardial effusion. Electronically Signed: Mariano Javed DO at 18:16 EST Reading Location ID and State: [facility] / [place] Tel [phone], Service support ,
[2024-09-19] MEDS: 0.9% Normal Saline (1000mL) 1,000 ML 1000 ML IV (16:45)
[2024-09-19 17:06] LABS: Absolute Lymphocyte Count 1.53 X10^3/uL (0.83-4.51); Absolute Neutrophil Count 3.5 X10^3/uL (2.0-7.7); Basophil# 0.02 X10^3/uL; Basophil% 0.3 % (0-1); Eosinophils% 3.4 % (0-5); Hematocrit 37.3 % (37-47); Hemoglobin 11.9 g/dL (12.0-15.0); Lymphocyte # 1.53 X10^3/ul (0.83-4.51); Lymphocyte % 26.2 % (19-41); Mean Corp Hgb Conc 31.9 g/dL (32-36); Mean Corpuscular Hgb 28.8 pg (27.0-32.0); Mean Corpuscular Volume 90.3 fL (81-99); Monocyte# 0.53 X10^3/uL; Monocyte% 9.1 % (0-10); NRBC Flagged by Analyzer 0 % (0-5); Neutrophil # 3.53 X10^3/uL (2.7-7.7); Neutrophil % 60.7 % (47-70); Platelet Count 143 K/mm3 (150-450); RBC Distribution Width CV 13.9 % (11.6-14.6); RBC Distribution Width SD 45.8 fl (35.1-43.9); Red Blood Count 4.13 M/mm3 (4.2-5.4); White Blood Count 5.8 K/mm3 (4.4-11.0)
[2024-09-19 17:21] LABS: Lactic Acid 0.8 mmol/L (0.4-1.9)
[2024-09-19 17:21] LABS: ALB/GLOB Ratio 0.8 RATIO (0.9-2.4); AST(SGOT) 19 U/L (15-37); Alanine Aminotransfer ALT/SGPT 23 U/L (13-56); Alkaline Phosphatase 60 U/L (45-117); Anion Gap 2 (5-15); BUN 27 mg/dL (7-18); BUN/Creat Ratio 22.7 RATIO (10-20); Calcium,Total 8.7 mg/dL (8.5-10.1); Chloride 108 mmol/L (98-107); Creatinine, Serum 1.19 mg/dL (0.55-1.02); EST Glomerular Filtration Rate 49 mL/min (>60); Est Glom Filt Rate - Afr Amer 60 mL/min (>60); Estimated Creatinine Clearance 59.95 ml/min; Globulin 3.7 g/dL (2.2-4.2); Glucose 161 mg/dL (74-106); Potassium 3.9 mmol/L (3.5-5.1); Protein, Total 6.7 g/dL (6.4-8.2); Sodium Level 142 mmol/L (136-145)
[2024-09-19 18:15] VITALS: BP 126/73; PULSE 70; RESP 16; O2SAT 98
[2024-09-19 20:00] VITALS: BP 129/67; PULSE 70; RESP 18; O2SAT 96
--- NOTE | 2024-09-19 20:50 | ED.RN ---
Clean catch urine sample obtained, straw colored and cloudy. Send to lab for culture.
--- NOTE | 2024-09-19 20:59 | EX.ED.DYSGE1 ---
HPI History of Present Illness Chief Complaint: Abd Pain Detail of Chief Complaint: Patient localizes the pain to the suprapubic left lower quadrant Informant: patient Onset/Context/Timing Onset: Days (Onset 3 to 5 days ago.) Context: Sudden Onset Timing: Continuous Quality: Pain Location: Suprapubic left lower quadrant Current Severity: Mild Maximum Severity: Moderate Worsened by: Palpation Relieved by: Nothing Associated Symptoms Associated Symptoms: Intermittent nausea and vomiting and frequency Narrative Narrative: Patient is a 59-year-old woman. She has history of debility, insulin-dependent diabetes, hypothyroidism, hypertension, GERD. She presents with left lower quadrant abdominal pain. She denies diarrhea or constipation. Denies history of diverticulosis diverticulitis. She states she is never had a colonoscopy. She denies change in color, consistency or caliber of her stool. She does report frequency and question of some discomfort at the end of urination. She denies pneumaturia. She denies low back pain or flank pain. There is no history of trauma. She has not noted a rash. Prior similar symptoms: No Recent Illness/Hospitalization: No [facility] Medical History COVID History of hypothyroidism Type 2 diabetes mellitus treated with insulin Chronic respiratory failure with hypoxia Pericardial effusion Thrombocytopenia Anemia Elevated lipase Urinary retention Obesity Former tobacco use UTI (urinary tract infection) Kidney stones Migraines Hypothyroid Hypercholesteremia Hypertension Type 2 diabetes mellitus Home Medications ?Medication ?Instructions ?Recorded ?Last Taken ?Type fluticasone propionate 50 2 spray QHS nasal spray 05/24/15 03/24/21 History mcg/actuation nasal spray,suspension dulaglutide 1.5 mg/0.5 mL 1.5 mg subcut JOHNSON dm 03/25/21 03/23/21 History subcutaneous pen injector (Trulicity) estradiol 0.01% (0.1 mg/gram) 3 g vaginal .2X/WEEK health 03/25/21 Unknown History vaginal cream maintenance fenofibrate 160 mg tablet 160 mg PO DAILY cholesterol 03/25/21 03/24/21 History vitamin E 268 mg (400 unit) capsule 400 unit PO DAILY supplement 03/25/21 03/24/21 History dicyclomine 10 mg capsule 10 mg PO ACHS abdominal pain 07/06/21 Unknown History hydrochlorothiazide 12.5 mg capsule 12.5 mg PO DAILY diuretic 07/06/21 Unknown History insulin degludec 100 unit/mL (3 86 unit subcut QHS diabetes 07/06/21 Unknown History mL) subcutaneous pen (Tresiba FlexTouch U-100 insulin) ketorolac 0.5 % eye drops 1 drp ophthalmic (eye) Q6H eye 07/06/21 Unknown History lisinopril 2.5 mg tablet 2.5 mg PO DAILY blood pressure 07/06/21 Unknown History meloxicam 15 mg tablet 15 mg PO DAILY PRN Pain 07/06/21 Unknown History ondansetron 4 mg disintegrating 4 mg PO Q8H PRN nausea and 07/06/21 Unknown Rx tablet vomiting #10 tabs prednisolone acetate 1 % eye 1 drp ophthalmic (eye) Q6H eye 07/06/21 Unknown History drops,suspension rosuvastatin 10 mg tablet 10 mg PO DAILY cholesterol 07/06/21 Unknown History insulin lispro 100 unit/mL 8 unit (0.08 mL) subcut TIDCM #0 mL 07/21/21 Unknown Rx subcutaneous pen (Humalog KwikPen (U-100) Insulin) furosemide 40 mg tablet 40 mg PO DAILY PRN swelling 04/20/24 Unknown History hydroxyzine HCl 25 mg tablet 25 - 50 mg PO QHS PRN PRN sleep 04/20/24 Unknown History levothyroxine 150 mcg tablet 200 mcg PO DAILY 04/20/24 Unknown History promethazine 25 mg tablet 25 mg PO Q6H PRN PRN Nausea #10 04/28/24 Unknown Rx TABLETS cholecalciferol (vitamin D3) 125 125 mcg PO DAILY 05/03/24 Unknown History mcg (5,000 unit) capsule empagliflozin 25 mg tablet 25 mg PO DAILY 05/03/24 Unknown History (Jardiance) gabapentin 600 mg tablet 600 mg PO Q12H 05/03/24 Unknown History omeprazole 40 mg capsule,delayed 40 mg PO DAILY 05/03/24 Unknown History release tamsulosin 0.4 mg capsule 0.4 mg PO DAILY 05/03/24 Unknown History hydrocodone-acetaminophen 5-325mg 1 tab PO TID PRN pain 5 days #15 05/04/24 Unknown Rx 5mg-325mg tabs cephalexin 500 mg capsule 500 mg PO Q6 #28 CAPSULES 09/19/24 Unknown Rx Allergy/AdvReac Type Severity Reaction Status Date / Time metformin AdvReac Diarrhea Verified 09/19/24 16:19 oxycodone (From Percocet) AdvReac upset Verified 09/19/24 16:19 stomach/off balance Family History Mother Diabetes Father Diabetes Surgical History Previous section History of appendectomy Social History household members: none Smoking Status: Former smoker how long ago did patient quit smoking: Quit cigarette tobacco in 2015, 1 ppd since teenager until quit. alcohol intake: never substance use type: does not use ROS ROS ED Constitutional Constitutional ED: Denies chills, fever(s), subjective or sweats Eyes Eyes: Denies blurry vision or change in vision ENT ENT ED: Denies ear pain, rhinorrhea or sore throat Cardiovascular Cardiovascular: Denies chest pain or palpitations Respiratory/Chest Respiratory/Chest: Denies cough, dyspnea or dyspnea on exertion Gastrointestinal Gastrointestinal: Reports abdominal pain, nausea and vomiting; Denies constipation, diarrhea or melena Genitourinary Genitourinary ED: Reports urinary frequency; Denies dysuria or hematuria Musculoskeletal Musculoskeletal: Denies arthralgias, back pain or myalgias Integumentary Denies rash Neurologic Neurologic: Denies headache(s), paresthesias or weakness Psychiatric Psychiatric: Reports depression; Denies anxiety Endocrine Endocrinology: Denies cold intolerance or heat intolerance Hematologic/Lymphatic Hematologic/Lymphatic: Reports systems reviewed and no addt'l complaints, except as documented EXAM Physical Exam Const Vital Signs: 09/19/24 16:16 09/19/24 18:15 09/19/24 20:00 Temperature 98.2 F Temperature Source Axillary Pulse Rate 70 70 70 Respiratory Rate 20 H 16 18 Blood Pressure 145/96 H 126/73 H 129/67 H Blood Pressure Mean 112 90 87 Pulse Ox 97 98 96 Oxygen Delivery Method Nasal Cannula Room Air Nasal Cannula Oxygen Flow Rate (L/min) 2 2 Positive well nourished and well developed Constitutional Narrative: Patient appears ill but not toxic. Vital signs are marked for an elevated blood pressure. General Appearance ED: well developed, NAD and pallor HEENT Reports moist mucous membranes HEENT Narrative: Head is atraumatic normocephalic. Ears normal. Nares patent. Posterior pharynx is normal. Eyes PERRL and EOMs intact bilaterally General Eye ED: Negative for pale conjunctiva or scleral icterus Neck no lymphadenopathy, supple and no JVD Resp normal respiratory effort and clear to auscultation bilaterally Cardio regular rate, regular rhythm, S1 normal heart sound, S2 normal heart sound and no murmurs GI normal to inspection, nondistended, normoactive bowel sounds and non-distended; Negative for non-tender, hepatosplenomegaly or no masses GI Narrative: There is tenderness in the left lower quadrant suprapubic area. There is guarding the left lower quadrant. Palpation: soft Back/Spine no CVA tenderness Thoracic Spine / Upper Back: Negative for thoracic spinal tenderness Lumbar Spine / Lower Back: Negative for lumbar spinal tenderness Extremity normal to inspection General Extremety ED: Negative for edema or tenderness General Extremity: Negative for edema Neuro oriented x3 and CN's II-XII intact bilaterally Sensorium / Orientation: alert Psych mental status grossly normal Skin no rashes or lesions noted, no wounds and skin turgor normal General Skin Exam: elasticity normal and pallor; Negative for jaundice MDM MDM MDM Narrative Medical decision making narrative: With prior history of renal calculi need to assess for ureteral obstructing stone, with significant tenderness in left lower quadrant and the fact that she has never had a colonoscopy need to consider possibility of diverticulitis. Since she does have suprapubic discomfort with questionable urinary symptoms need to evaluate for urinary tract infection as well. Since she is diabetic we will obtain electrolyte panel to assess glucose CO2 anion gap. History & Record Review Additional record(s) reviewed:: Prior inpatient record (Patient was admitted to the hospital in May for debility, hypotension, and rotator cuff injury.), Prior outpatient record (Home care certification note was reviewed from September 13.), Prior ED visit and Prior labs Lab Data Attestation: I reviewed the patient's lab results. Lab results narrative: Patient is anemic. Has been anemic in the past. H&H is slightly higher than normal at 11.9 compared to 10.0 on May 04, 2024. Renal function reveals creatinine of 1.19 with a GFR of 49. Most recent creatinine was 1.43 with an estimated GFR 40 on May 04, 2024. Blood sugar is elevated 161 with a normal CO2 anion gap. Labs: Laboratory Results - last 24 hr 09/19/24 09/19/24 16:28 16:42 WBC 5.8 RBC 4.13 L Hgb 11.9 L Hct 37.3 MCV 90.3 MCH 28.8 MCHC 31.9 L RDW Std Deviation 45.8 H RDW Coeff of Catina 13.9 Plt Count 143 L MPV 11.0 Immature Gran % (Auto) 0.300 Neut % (Auto) 60.7 Lymph % (Auto) 26.2 [place] % (Auto) 9.1 Eos % (Auto) 3.4 Baso % (Auto) 0.3 Absolute Neuts (auto) 3.5 Absolute Lymphs (auto) 1.53 Nucleated RBC % 0 Sodium 142 Potassium 3.9 Chloride 108 H Carbon Dioxide 32.0 Anion Gap 2 L BUN 27 H Creatinine 1.19 H Estim Creat Clear Calc 59.95 Est GFR (MDRD) Af Amer 60 Est GFR (MDRD) Non-Af 49 L BUN/Creatinine Ratio 22.7 H Glucose 161 H Lactic Acid 0.8 Calcium 8.7 Total Bilirubin 0.30 AST 19 ALT 23 Alkaline Phosphatase 60 Total Protein 6.7 Albumin 3.0 L Globulin 3.7 Albumin/Globulin Ratio 0.8 L Radiography Diagnostic Testing: Clinical Impression(s) from Imaging Studies Abdomen/Pelvis CT 09/19/24 16:39 IMPRESSION: Focal gas in the urinary bladder with slight wall thickening Cirrhosis with mild splenomegaly. Pericardial effusion. Electronically Signed: Mariano Javed DO at 18:16 EST Reading Location ID and State: [facility] / [place] Tel [phone], Service support , [place] report was read. Urine is turbid. Urine culture was sent and patient was treated with Rocephin. Since patient is not febrile, hypotensive tachycardic and white count is normal patient is a candidate for outpatient therapy. Discharge Plan Triage Chief Complaint: Abd Pain ED Provider: John Walker Dx/Rx/DC Orders Clinical Impression: Acute cystitis, Debility, Left lower quadrant abdominal pain, Type 2 diabetes mellitus treated with insulin, Hyperglycemia due to type 2 diabetes mellitus, Chronic anemia Instructions: ED Cystitis Female Adult Prescriptions: New cephalexin 500 mg capsule 500 mg PO Q6 Qty: 28 0RF No Action fluticasone propionate 1 SPRAY spray,suspension 2 spray NASAL QHS Patient Comments: allergies estradiol 0.01 % (0.1 mg/gram) cream 3 g VAGINAL .2X/WEEK Patient Comments: insert 3 grams vaginally two times a week fenofibrate 160 mg tablet 160 mg PO DAILY Patient Comments: take 1 tablet by mouth once daily Trulicity 1.5 mg/0.5 mL pen injector 1.5 mg SUBCUT JOHNSON Patient Comments: inject 0.5 milliliters ( 1 AND 1/2 milligrams ) subcutaneously every week vitamin E 400 unit Capsule 400 unit PO DAILY meloxicam 15 mg tablet 15 mg PO DAILY PRN (Reason: Pain) Patient Comments: take 1 tablet by mouth once daily if needed for pain with food ketorolac 0.5 % drops 1 drp ophthalmic (eye) Q6H Patient Comments: instill 1 drop into left eye four times a day prednisolone acetate 1 % drops,suspension 1 drp ophthalmic (eye) Q6H Patient Comments: instill 1 drop into right eye four times a day hydrochlorothiazide 12.5 mg capsule 12.5 mg PO DAILY Patient Comments: take 1 capsule by mouth once daily lisinopril 2.5 mg tablet 2.5 mg PO DAILY Patient Comments: take 1 tablet by mouth once daily dicyclomine 10 mg capsule 10 mg PO ACHS Patient Comments: take 1 capsule by mouth four times a day before meals and at bedtime FOR ABDOMINAL PAIN rosuvastatin 10 mg tablet 10 mg PO DAILY Patient Comments: take 1 tablet by mouth at bedtime insulin degludec [Tresiba FlexTouch U-100] 100 unit/mL (3 mL) insulin pen 86 unit SUBCUT QHS Patient Comments: INJECT 86 UNITS SUBCUTANEOUSLY DAILY AT BEDTIME ondansetron 4 mg tablet,disintegrating 4 mg PO Q8H PRN (Reason: nausea and vomiting) Qty: 10 0RF insulin lispro [Humalog KwikPen Insulin] 100 unit/mL Insulin Pen 8 unit subcut TIDCM Qty: 0 0RF furosemide 40 mg tablet 40 mg PO DAILY PRN (Reason: swelling) hydroxyzine HCl 25 mg tablet 25 - 50 mg PO QHS PRN PRN (Reason: sleep) levothyroxine 150 mcg tablet 200 mcg PO DAILY promethazine 25 mg tablet 25 mg PO Q6H PRN PRN (Reason: Nausea) Qty: 10 0RF gabapentin 600 mg tablet 600 mg PO Q12H cholecalciferol (vitamin D3) 125 mcg (5,000 unit) capsule 125 mcg PO DAILY Jardiance 25 mg tablet 25 mg PO DAILY omeprazole 40 mg capsule,delayed release(DR/EC) 40 mg PO DAILY tamsulosin 0.4 mg capsule 0.4 mg PO DAILY hydrocodone-acetaminophen 5-325 mg tablet 1 tab PO TID PRN (Reason: pain) 5 Days Qty: 15 0RF Primary Care Provider: Rebeka Rabago Referrals: Rebeka Rabago MD [Primary Care Provider] - Print Language: Chinese Disposition Disposition: Home, Self Care
[2024-09-19] MEDS: Ceftriaxone 2 GM in 0.9% Normal Saline (50mL MB+) 50 ML IV (21:13)
[2024-09-19 21:18] VITALS: BP 135/66; PULSE 68; RESP 16; TEMP 36.6; O2SAT 97
[2024-09-19 22:00] VITALS: BP 133/60; PULSE 68; RESP 18; O2SAT 99
== END 2024-09-19 22:14 | disposition home or self-care (01) ==
PROVIDERS: Emergency Provider Emergency Medicine; PCP Internal Medicine; Visit Provider Emergency Medicine
DX: R10.32 Left lower quadrant pain (principal); E11.65 Type 2 diabetes mellitus with hyperglycemia; Z79.4 Long term (current) use of insulin; I10 Essential (primary) hypertension; D64.9 Anemia, unspecified; R53.81 Other malaise; N30.00 Acute cystitis without hematuria; Z87.891 Personal history of nicotine dependence; E78.00 Pure hypercholesterolemia, unspecified; Z79.85 Long-term (current) use of injectable non-insulin antidiabetic drugs; Z79.899 Other long term (current) drug therapy; E03.9 Hypothyroidism, unspecified; Z79.890 Hormone replacement therapy; Z90.49 Acquired absence of other specified parts of digestive tract
CPT/HCPCS: 74177; 80053; 83605; 85025; 87077; 87086; 87088; 87186; 96361; 96365; 99285; Q9967; A4216; J0696

== ENCOUNTER 2024-10-27 14:57 | Emergency (ER) | payer MEDICAID, SELFPAY ==
[2024-10-27] VITALS (8 sets, daily range): BP systolic 130–169; BP diastolic 67–89; PULSE 68–96; RESP 19–20; TEMP 36.6; O2SAT 95–98; BMI 44.6
--- NOTE | 2024-10-27 17:00 | EKG12_ITS ---
Test Reason : Blood Pressure : */* mmHG Vent. Rate : 67 BPM Atrial Rate : 67 BPM P-R Int : 196 ms QRS Dur : 98 ms QT Int : 452 ms P-R-T Axes : 30 3 55 degrees QTcB Int : 477 ms Normal sinus rhythm Normal ECG Confirmed by MIQUEL DUNNE, LYLY ([id number]), subeditor JESSICA VILLA ([id number]) on 10/31/2024 6:06:59 AM Referred By: Confirmed By: LYLY LAFLEUR MD
--- NOTE | 2024-10-27 17:01 | EX.ED.DYSGE1 ---
HPI History of Present Illness Chief Complaint: Edema Informant: patient Narrative Narrative: Patient is a 59-year-old female with history of debility, diabetes mellitus, hypertension, GERD, chronic oxygen dependency on 2 L of oxygen after COVID infection and peripheral edema presenting with worsening peripheral edema. Patient states she has been having leg swelling for a while. She saw Dr. Brewster cardiology through [facility]. She was told is not from her heart. She is on Lasix, hydrochlorothiazide and lisinopril at baseline. She notes that she is continue to have urine output with this. She does state that she has been gaining weight and on 10/16 she was 247 and today in the bed she weighs 251 lbs. she denies any recent medication changes. States been compliant with her medicine. She states her leg swelling is really worsened over the past few days to a week. She now feels that her swelling is up to her abdomen. She she is having hard time moving around because of all the extra weight is getting more short of breath. She denies any history of any liver disease. She is on any blood thinners. Does have some mild pressure in her upper abdomen/lower chest but denies any chest pain. Denies any new cough. No other complaints or concerns reported at this time. [facility] Medical History COVID History of hypothyroidism Type 2 diabetes mellitus treated with insulin Chronic respiratory failure with hypoxia Pericardial effusion Thrombocytopenia Anemia Elevated lipase Urinary retention Obesity Former tobacco use UTI (urinary tract infection) Kidney stones Migraines Hypothyroid Hypercholesteremia Hypertension Type 2 diabetes mellitus Home Medications ?Medication ?Instructions ?Recorded ?Last Taken ?Type fluticasone propionate 50 2 spray QHS nasal spray 05/24/15 03/24/21 History mcg/actuation nasal spray,suspension dulaglutide 1.5 mg/0.5 mL 1.5 mg subcut JOHNSON dm 03/25/21 03/23/21 History subcutaneous pen injector (Trulicity) estradiol 0.01% (0.1 mg/gram) 3 g vaginal .2X/WEEK health 03/25/21 Unknown History vaginal cream maintenance fenofibrate 160 mg tablet 160 mg PO DAILY cholesterol 03/25/21 03/24/21 History vitamin E 268 mg (400 unit) capsule 400 unit PO DAILY supplement 03/25/21 03/24/21 History dicyclomine 10 mg capsule 10 mg PO ACHS abdominal pain 07/06/21 Unknown History hydrochlorothiazide 12.5 mg capsule 12.5 mg PO DAILY diuretic 07/06/21 Unknown History insulin degludec 100 unit/mL (3 86 unit subcut QHS diabetes 07/06/21 Unknown History mL) subcutaneous pen (Tresiba FlexTouch U-100 insulin) ketorolac 0.5 % eye drops 1 drp ophthalmic (eye) Q6H eye 07/06/21 Unknown History lisinopril 2.5 mg tablet 2.5 mg PO DAILY blood pressure 07/06/21 Unknown History meloxicam 15 mg tablet 15 mg PO DAILY PRN Pain 07/06/21 Unknown History ondansetron 4 mg disintegrating 4 mg PO Q8H PRN nausea and 07/06/21 Unknown Rx tablet vomiting #10 tabs prednisolone acetate 1 % eye 1 drp ophthalmic (eye) Q6H eye 07/06/21 Unknown History drops,suspension rosuvastatin 10 mg tablet 10 mg PO DAILY cholesterol 07/06/21 Unknown History insulin lispro 100 unit/mL 8 unit (0.08 mL) subcut TIDCM #0 mL 07/21/21 Unknown Rx subcutaneous pen (Humalog KwikPen (U-100) Insulin) hydroxyzine HCl 25 mg tablet 25 - 50 mg PO QHS PRN PRN sleep 04/20/24 Unknown History promethazine 25 mg tablet 25 mg PO Q6H PRN PRN Nausea #10 04/28/24 Unknown Rx TABLETS cholecalciferol (vitamin D3) 125 125 mcg PO DAILY 05/03/24 Unknown History mcg (5,000 unit) capsule empagliflozin 25 mg tablet 25 mg PO DAILY 05/03/24 Unknown History (Jardiance) gabapentin 600 mg tablet 600 mg PO Q12H 05/03/24 Unknown History omeprazole 40 mg capsule,delayed 40 mg PO DAILY 05/03/24 Unknown History release tamsulosin 0.4 mg capsule 0.4 mg PO DAILY 05/03/24 Unknown History hydrocodone-acetaminophen 5-325mg 1 tab PO TID PRN pain 5 days #15 05/04/24 Unknown Rx 5mg-325mg tabs cephalexin 500 mg capsule 500 mg PO Q12 #10 CAPSULES 10/27/24 Unknown Rx dulaglutide 4.5 mg/0.5 mL 4.5 mg subcut QWEEK 10/27/24 Unknown History subcutaneous pen injector (Trulicity) furosemide 40 mg tablet 40 mg PO DAILY swelling #10 tabs 10/27/24 Unknown Rx levothyroxine 150 mcg tablet 300 mcg (2 x 150 mcg) PO DAILY #60 10/27/24 Unknown Rx tabs Allergy/AdvReac Type Severity Reaction Status Date / Time metformin AdvReac Diarrhea Verified 10/27/24 14:59 oxycodone (From Percocet) AdvReac upset Verified 10/27/24 14:59 stomach/off balance Family History Mother Diabetes Father Diabetes Surgical History Previous section History of appendectomy Social History household members: none Smoking Status: Former smoker how long ago did patient quit smoking: Quit cigarette tobacco in 2014, 1 ppd since teenager until quit. alcohol intake: never substance use type: does not use ROS ROS ED Constitutional Constitutional ED: Reports other Details: fatigue ; Denies chills or fever(s) Cardiovascular Cardiovascular: Reports other Details: Lower chest pressure ; Denies chest pain Respiratory/Chest Respiratory/Chest: Reports dyspnea and dyspnea on exertion; Denies cough Gastrointestinal Gastrointestinal: Reports abdominal pain; Denies nausea or vomiting Genitourinary Genitourinary ED: Reports other Details: Urgency and hesitancy reported ; Denies dysuria or hematuria Musculoskeletal Musculoskeletal: Reports other Details: Bilateral leg swelling ; Denies arthralgias or myalgias Integumentary Denies rash Neurologic Neurologic: Reports weakness Hematologic/Lymphatic Hematologic/Lymphatic: Denies easy bleeding or easy bruising EXAM Physical Exam Const Vital Signs: 10/27/24 14:59 10/27/24 15:02 10/27/24 16:55 Temperature 97.8 F 97.8 F 98 F Temperature Source Temporal Oral Temporal Pulse Rate 72 72 71 Respiratory Rate 20 H 20 H 19 H Respiratory Effort Respiratory Pattern Blood Pressure 157/82 H 157/82 H 156/81 H Blood Pressure Mean 107 107 106 Pulse Ox 97 97 96 Oxygen Delivery Method Nasal Cannula Nasal Cannula Nasal Cannula Oxygen Flow Rate (L/min) 2 10/27/24 16:55 10/27/24 16:58 10/27/24 18:00 Temperature Temperature Source Pulse Rate 68 70 Respiratory Rate 20 H Respiratory Effort Normal Respiratory Pattern Normal Blood Pressure 169/88 H 130/89 H Blood Pressure Mean 115 102 Pulse Ox 98 95 Oxygen Delivery Method Oxygen Flow Rate (L/min) 10/27/24 19:22 10/27/24 21:00 10/27/24 21:44 Temperature 98 F Temperature Source Pulse Rate 69 96 96 Respiratory Rate 20 H 20 H Respiratory Effort Respiratory Pattern Blood Pressure 140/67 H 144/76 H 144/76 H Blood Pressure Mean 91 98 98 Pulse Ox 98 98 Oxygen Delivery Method Room Air Oxygen Flow Rate (L/min) 2 Positive well nourished and obese General Appearance ED: NAD Nutritional Appearance: obese HEENT Reports moist mucous membranes Eyes PERRL Neck supple and no JVD Chest Wall inspection of chest normal and palpation of chest normal Resp normal respiratory effort and clear to auscultation bilaterally Cardio regular rate, regular rhythm and no murmurs Cardio Narrative: 2+ radial DP pulses present GI normal to inspection, nondistended, normoactive bowel sounds and non-tender GI Narrative: Protuberant abdomen. No fluid wave. No tenderness Extremity Extremity Narrative: 2+ pitting edema up to the hips present. Neuro oriented x3 Sensorium / Orientation: alert Motor Exam: general weakness Psych mental status grossly normal Skin no rashes or lesions noted and no wounds MDM MDM MDM Narrative Medical decision making narrative: Patient is evaluated for lower extremity edema that has been worsening. She denies any recent medication changes. She feels that it has been worse over the past few days or prompted her to come to the emergency room. Patient wears 2 L of oxygen at baseline. Differential includes CHF exacerbation, fluid overload, liver disease, myxedema coma, JOSIE, symptomatic anemia and electrolyte abnormalities. Given that it is bilateral with no tachycardia or increased O2 demands low suspicion for VTE. CBC is normal. CMP is normal. She has normal high sensitive troponin at 33. BNP is normal at 14.6. Patient has a significant elevation of her TSH of 79.8. Free T4 and T3 is added on which are low at 0.57 and 1.6. Chart review shows that patient is supposed be on 200 mcg of levothyroxine daily. Chest x-ray viewed by myself as well as radiology shows stable cardiomegaly. No pleural effusions noted. Patient is ambulated with no hypoxia and stable vital signs. Urinalysis does show physis with urinary tract infection positive nitrates, 5-10 white blood cells and 1+ bacteria. Patient has that she has been having some pelvic discomfort and urinary frequency. Will send for culture. Prior culture reviewed which grew E. coli that was pansensitive. Patient will be started on Keflex. Given first dose in the emergency room. She is also missing Tylenol for headache. I did speak with PCP on-call, Dr. Rivera about my concerns for hypothyroid probably contributing to her edema as well as her peripheral edema. He states that patient had elevated TSH back in June of this was to increase her Synthroid at that time to 1-1/2 tablets a day (300 mcg). Patient states that she still only taking 1 tablet a day. He also states that she had an echocardiogram in June which showed a EF of 60% with no pericardial effusion. Plan is to increase the patient's Synthroid up to 300 mcg daily (which she should have already been taking) and also put her on a 5-day burst of steroids. She will follow-up outpatient. Patient agreeable with plan of care. Patient can return precautions. Discharged home in stable condition. History & Record Review Additional record(s) reviewed:: Prior labs Lab Data Attestation: I reviewed the patient's lab results. Labs: Laboratory Results - last 24 hr 10/27/24 16:33 WBC 6.4 RBC 4.32 Hgb 12.2 Hct 38.8 MCV 89.8 MCH 28.2 MCHC 31.4 L RDW Std Deviation 47.5 H RDW Coeff of Catina 14.5 Plt Count 162 MPV 10.9 Immature Gran % (Auto) 0.300 Neut % (Auto) 70.3 H Lymph % (Auto) 20.3 [place] % (Auto) 6.1 Eos % (Auto) 2.8 Baso % (Auto) 0.2 Absolute Neuts (auto) 4.5 Absolute Lymphs (auto) 1.30 Nucleated RBC % 0 Sodium 144 Potassium 3.7 Chloride 110 H Carbon Dioxide 30.0 Anion Gap 5 BUN 24 H Creatinine 0.89 Estim Creat Clear Calc 82.86 Est GFR (MDRD) Af Amer 84 Est GFR (MDRD) Non-Af 69 BUN/Creatinine Ratio 27.0 H Glucose 104 Calcium 9.2 Total Bilirubin 0.30 AST 23 ALT 23 Alkaline Phosphatase 60 Troponin I High Sens 33 B-Natriuretic Peptide 14.6 Total Protein 6.9 Albumin 2.8 L Globulin 4.1 Albumin/Globulin Ratio 0.7 L TSH 79.800 H Free T4 0.57 L Free T3 pg/dL 1.6 L Urine Color Yellow Urine Clarity Clear Urine pH 6.5 Ur Specific [place] 1.015 Urine Protein 500 H Urine Glucose (UA) 1000 H Urine Ketones Negative Urine Occult Blood 25 H Urine Nitrite Positive H Urine Bilirubin Negative Urine Urobilinogen Normal Ur Leukocyte Esterase 100 H Urine RBC 0 SEEN Urine WBC 5-10 SEEN Ur Squamous Epith Cells 0-5 SEEN Urine Bacteria 1+ Urine Mucus 0 SEEN Radiography Diagnostic Testing: Clinical Impression(s) from Imaging Studies Chest X-Ray 10/27/24 17:20 IMPRESSION: Cardiomegaly and old granulomatous disease. No acute disease. Electronically Signed: Michael Morales MD at 18:19 EST Reading Location ID and State: [address] [place] [address] Tel , Service support , Rhythm Strip Rhythm Strip: Sinus Rhythm Rate: 67 Ectopy: None EKG Initial EKG: Attestation: I personally reviewed and interpreted this EKG as follows: Interpretation: Sinus Rhythm Comments: Normal sinus rhythm at 67 bpm Normal axis Normal intervals Normal ST segments Management Discussion w/another healthcare provider: PCP (Dr. Kimble) Discharge Plan Triage Chief Complaint: Edema ED Provider: Marianela Harvey Dx/Rx/DC Orders Clinical Impression: Edema, Hypothyroid Instructions: ED Peripheral Edema, Bilateral, ED Hypothyroidism, ED Cystitis Female Adult Prescriptions: New cephalexin 500 mg capsule 500 mg PO Q12 Qty: 10 0RF Changed furosemide 40 mg tablet 40 mg PO DAILY Qty: 10 0RF levothyroxine 150 mcg tablet 300 mcg PO DAILY Qty: 60 0RF No Action fluticasone propionate 1 SPRAY spray,suspension 2 spray NASAL QHS Patient Comments: allergies estradiol 0.01 % (0.1 mg/gram) cream 3 g VAGINAL .2X/WEEK Patient Comments: insert 3 grams vaginally two times a week fenofibrate 160 mg tablet 160 mg PO DAILY Patient Comments: take 1 tablet by mouth once daily Trulicity 1.5 mg/0.5 mL pen injector 1.5 mg SUBCUT JOHNSON Patient Comments: inject 0.5 milliliters ( 1 AND 1/2 milligrams ) subcutaneously every week vitamin E 400 unit Capsule 400 unit PO DAILY meloxicam 15 mg tablet 15 mg PO DAILY PRN (Reason: Pain) Patient Comments: take 1 tablet by mouth once daily if needed for pain with food ketorolac 0.5 % drops 1 drp ophthalmic (eye) Q6H Patient Comments: instill 1 drop into left eye four times a day prednisolone acetate 1 % drops,suspension 1 drp ophthalmic (eye) Q6H Patient Comments: instill 1 drop into right eye four times a day hydrochlorothiazide 12.5 mg capsule 12.5 mg PO DAILY Patient Comments: take 1 capsule by mouth once daily lisinopril 2.5 mg tablet 2.5 mg PO DAILY Patient Comments: take 1 tablet by mouth once daily dicyclomine 10 mg capsule 10 mg PO ACHS Patient Comments: take 1 capsule by mouth four times a day before meals and at bedtime FOR ABDOMINAL PAIN rosuvastatin 10 mg tablet 10 mg PO DAILY Patient Comments: take 1 tablet by mouth at bedtime insulin degludec [Tresiba FlexTouch U-100] 100 unit/mL (3 mL) insulin pen 86 unit SUBCUT QHS Patient Comments: INJECT 86 UNITS SUBCUTANEOUSLY DAILY AT BEDTIME ondansetron 4 mg tablet,disintegrating 4 mg PO Q8H PRN (Reason: nausea and vomiting) Qty: 10 0RF insulin lispro [Humalog KwikPen Insulin] 100 unit/mL Insulin Pen 8 unit subcut TIDCM Qty: 0 0RF hydroxyzine HCl 25 mg tablet 25 - 50 mg PO QHS PRN PRN (Reason: sleep) promethazine 25 mg tablet 25 mg PO Q6H PRN PRN (Reason: Nausea) Qty: 10 0RF gabapentin 600 mg tablet 600 mg PO Q12H cholecalciferol (vitamin D3) 125 mcg (5,000 unit) capsule 125 mcg PO DAILY Jardiance 25 mg tablet 25 mg PO DAILY omeprazole 40 mg capsule,delayed release(DR/EC) 40 mg PO DAILY tamsulosin 0.4 mg capsule 0.4 mg PO DAILY hydrocodone-acetaminophen 5-325 mg tablet 1 tab PO TID PRN (Reason: pain) 5 Days Qty: 15 0RF Trulicity 4.5 mg/0.5 mL pen injector 4.5 mg subcut QWEEK Primary Care Provider: Rebeka Rabago Referrals: Rebeka Rabago MD [Primary Care Provider] - Activity Restrictions/Additional Instructions: I suspect some of your swelling is associated with your thyroid dysfunction. You have been prescribed 5-day course of water pills. In addition after discussing with your primary care office you actually should be on 300 mcg of levothyroxine daily. You have been prescribed the appropriate dose. If you still have the 200 mcg tablets at home you can take 1-1/2 of those every day. If your symptoms worsen please return to the emergency room. Please follow closely with your primary care doctor. Your urine results did show some findings which could be consistent with urinary tract infection. We will send for culture and start you on an antibiotic. Print Language: Cameroonian Disposition Disposition: Home, Self Care Discharge Date/Time: 10/27/24 22:19
[2024-10-27 17:08] LABS: Mucous, Urine 0 SEEN /hpf (<or=2+); Red Blood Cells-Urine 0 SEEN /hpf (0-5)
[2024-10-27 17:10] LABS: Color, Urine Yellow (Yellow); Glucose, Dipstick 1000 mg/dl (Normal); Ketone-Dipstick Negative (Negative); Leukocyte Esterase-Dipstick 100 /ul (Negative); Nitrite-Dipstick Positive (Negative); Occult Blood-Urine 25 /ul (Negative); Protein-Dipstick 500 mg/dl (Negative); Specific Gravity, Urine 1.015 (1.002-1.030); Urine Bilirubin Dipstick Negative (Negative); Urine Clarity Clear (Clear); Urine Urobilinogen Normal (Normal); Urine pH 6.5 (5.0 - 8.0)
[2024-10-27 17:15] LABS: Absolute Neutrophil Count 4.5 X10^3/uL (2.0-7.7); Basophil# 0.01 X10^3/uL; Basophil% 0.2 % (0-1); Eosinophil# 0.18 X10^3/uL; Eosinophils% 2.8 % (0-5); Hematocrit 38.8 % (37-47); Hemoglobin 12.2 g/dL (12.0-15.0); Lymphocyte % 20.3 % (19-41); Mean Corp Hgb Conc 31.4 g/dL (32-36); Mean Corpuscular Hgb 28.2 pg (27.0-32.0); Mean Corpuscular Volume 89.8 fL (81-99); Mean Platelet Vol. 10.9 fl (6.2-12.0); Monocyte# 0.39 X10^3/uL; Monocyte% 6.1 % (0-10); NRBC Flagged by Analyzer 0 % (0-5); Neutrophil % 70.3 % (47-70); Platelet Count 162 K/mm3 (150-450); RBC Distribution Width CV 14.5 % (11.6-14.6); RBC Distribution Width SD 47.5 fl (35.1-43.9); Red Blood Count 4.32 M/mm3 (4.2-5.4); White Blood Count 6.4 K/mm3 (4.4-11.0)
--- NOTE | 2024-10-27 17:20 | RAD_ITS ---
STUDY: X-RAY CHEST REASON FOR EXAM: Female, 59 years old. sob TECHNIQUE: PA and lateral COMPARISON: April 20, 2024 FINDINGS: The lungs are clear and expanded. Tiny calcified granuloma in right lower lobe There is no demonstrated pleural abnormality. Heart is enlarged.. Normal mediastinum. Small right calcified hilar node Normal visualized pulmonary arteries. Normal visualized aortic arch and descending thoracic aorta. Normal visualized thoracic spine. Normal visualized ribs, clavicles, and shoulders. There is no demonstrated abnormality of the visualized soft tissue structures of the upper abdomen. RAD/Chest PA and Lateral IMPRESSION: Cardiomegaly and old granulomatous disease. No acute disease. Electronically Signed: Michael Morales MD at 18:19 EST ,
[2024-10-27 17:38] LABS: Squamous Epithelial Cells - UA 0-5 SEEN /hpf (5-10); White Blood Cells 5-10 SEEN /hpf (0-5)
[2024-10-27 17:39] LABS: Bacteria 1+ /hpf (None Seen)
[2024-10-27 17:48] LABS: ALB/GLOB Ratio 0.7 RATIO (0.9-2.4); AST(SGOT) 23 U/L (15-37); Alanine Aminotransfer ALT/SGPT 23 U/L (13-56); Albumin, Serum 2.8 g/dL (3.2-5.0); Alkaline Phosphatase 60 U/L (45-117); Anion Gap 5 (5-15); BUN 24 mg/dL (7-18); Calcium,Total 9.2 mg/dL (8.5-10.1); Chloride 110 mmol/L (98-107); Creatinine, Serum 0.89 mg/dL (0.55-1.02); EST Glomerular Filtration Rate 69 mL/min (>60); Est Glom Filt Rate - Afr Amer 84 mL/min (>60); Estimated Creatinine Clearance 82.86 ml/min; Globulin 4.1 g/dL (2.2-4.2); Glucose 104 mg/dL (74-106); Potassium 3.7 mmol/L (3.5-5.1); Protein, Total 6.9 g/dL (6.4-8.2); Sodium Level 144 mmol/L (136-145); Troponin-I HS 33 pg/mL (3.0-54.0)
[2024-10-27 19:01] LABS: Free T3 1.6 pg/mL (2.18-3.98); T4 Free Direct 0.57 ng/dL (0.76-1.46)
[2024-10-27 19:05] LABS: BNP,B-Type NATRIURETIC PEPTIDE 14.6 pg/mL (0-100)
--- NOTE | 2024-10-27 19:36 | ED.RN ---
Dr. Harvey bedside
[2024-10-27] MEDS: Cephalexin 250 MG Capsule 500 MG PO (22:05)
[2024-10-27] MEDS: Acetaminophen 325 MG Tablet 650 MG PO (22:05)
== END 2024-10-27 22:19 | disposition home or self-care (01) ==
PROVIDERS: Emergency Provider Emergency Medicine; PCP Internal Medicine; Visit Provider Emergency Medicine
DX: R60.9 Edema, unspecified (principal); E11.9 Type 2 diabetes mellitus without complications; Z79.4 Long term (current) use of insulin; B96.20 Unspecified Escherichia coli [E. coli] as the cause of diseases classified elsewhere; Z79.890 Hormone replacement therapy; R51.9 Headache, unspecified; E03.9 Hypothyroidism, unspecified; I10 Essential (primary) hypertension; E78.00 Pure hypercholesterolemia, unspecified; Z87.891 Personal history of nicotine dependence; Z99.81 Dependence on supplemental oxygen; Z79.899 Other long term (current) drug therapy; R06.02 Shortness of breath; Z79.85 Long-term (current) use of injectable non-insulin antidiabetic drugs; Z79.84 Long term (current) use of oral hypoglycemic drugs; Z90.49 Acquired absence of other specified parts of digestive tract
CPT/HCPCS: 71046; 80053; 81001; 83880; 84439; 84443; 84481; 84484; 85025; 87086; 93005; 99284

== ENCOUNTER 2025-07-09 16:20 | Inpatient (IN) | payer MEDICAID, SELFPAY ==
[2025-07-09] VITALS (13 sets, daily range): BP systolic 132–181; BP diastolic 62–110; PULSE 70–76; RESP 15–19; TEMP 35.6–37.2; O2SAT 92–100; BMI 47.5; BMI 45.1
--- NOTE | 2025-07-09 16:34 | EKG12_ITS ---
Test Reason : SOB Blood Pressure : */* mmHG Vent. Rate : 70 BPM Atrial Rate : 70 BPM P-R Int : 202 ms QRS Dur : 100 ms QT Int : 428 ms P-R-T Axes : 18 2 36 degrees QTcB Int : 462 ms Normal sinus rhythm Normal ECG Confirmed by JACQUIE DUNNE, XIMENA ([id number]), editor farm journal ALICJA DE LA PAZ ([id number]) on 07/11/2025 1:21:20 PM Referred By: Confirmed By: XIMENA DHILLON MD
--- NOTE | 2025-07-09 16:53 | RAD_ITS ---
PROCEDURE: CHEST PA AND LATERAL 07/09/2025 REASON FOR EXAM: SOB TECHNIQUE: Procedure Code: RADCXR Modality: DX Procedure: CHEST PA AND LATERAL COMPARISON: 10/27/2024 FINDINGS: Cardiomegaly. Central vascular congestion, and bilateral interstitial reticular airspace opacities likely reflect interstitial edema. No pneumothorax or sizable pleural effusion. No significant osseous abnormality. RAD/Chest PA and Lateral IMPRESSION: Cardiomegaly with vascular congestion and interstitial edema. No sizable pleural effusion. Reading Location: [id number]
[2025-07-09 16:54] LABS: Hematocrit 35.9 % (37-47); Hemoglobin 11.0 g/dL (12.0-15.0); Immature Granulocytes Count 0.040 X10^3/uL (0.0-0.0); Mean Corp Hgb Conc 30.6 g/dL (32-36); Mean Corpuscular Volume 90.9 fL (81-99); Mean Platelet Vol. 11.2 fl (6.2-12.0); NRBC Flagged by Analyzer 0 % (0-5); Platelet Count 131 K/mm3 (150-450); RBC Distribution Width CV 15.1 % (11.6-14.6); RBC Distribution Width SD 50.4 fl (35.1-43.9); Red Blood Count 3.95 M/mm3 (4.2-5.4); White Blood Count 5.4 K/mm3 (4.4-11.0)
[2025-07-09 17:15] LABS: Anion Gap 10 (5-15); BUN 31 mg/dL (4-19); BUN/Creat Ratio 26.6 RATIO (10-20); Calcium,Total 9.0 mg/dL (7.6-11.0); Carbon Dioxide 26.4 mmol/L (21.0-32.0); Chloride 107 mmol/L (98-108); Estimated Creatinine Clearance 66.59 ml/min (50-250); Glucose 225 mg/dL (70-99); Potassium 4.6 mmol/L (3.3-5.1); Pro- Brain NATRIURETIC PEPTIDE 237 pg/mL (<=900)
--- NOTE | 2025-07-09 17:31 | EDS_ITS ---
HPI History of Present Illness Chief Complaint: Shortness of Breath Narrative Narrative: Patient is a 59-year-old female with past medical history of hypothyroidism, type 2 diabetes, chronic respiratory failure with hypoxia chronically on 2 L nasal cannula, pericardial effusion, migraines, hypertension, hypercholesteremia who presented to the emergency department from the pulmonary office with a chief complaint of worsening shortness of breath on exertion as well as increased weight gain. According to the patient she has increased her weight by approximately 13 pounds since last week. States that there is a chance that she has missed few doses of her Lasix. States that she had a CT scan earlier today which showed fluid in her lungs and the pulmonology office sent her immediately here to the emergency department to be further evaluated. [facility] Medical History COVID History of hypothyroidism Type 2 diabetes mellitus treated with insulin Chronic respiratory failure with hypoxia Pericardial effusion Thrombocytopenia Anemia Elevated lipase Urinary retention Obesity Former tobacco use UTI (urinary tract infection) Kidney stones Migraines Hypothyroid Hypercholesteremia Hypertension Type 2 diabetes mellitus Home Medications ?Medication ?Instructions ?Recorded ?Last Taken ?Type estradiol 0.01% (0.1 mg/gram) 3 g vaginal .COMPLEX hea lth 03/25/21 Unknown History vaginal cream maintenance fenofibrate 160 mg tablet 160 mg PO DAILY cholesterol 03/25/21 07/09/25 History vitamin E 268 mg (400 unit) capsule 400 unit PO DAILY supplement 03/25/21 07/09/25 History dicyclomine 10 mg capsule 10 mg PO ACHS abdominal pain 07/06/21 Unknown History insulin degludec 100 unit/mL (3 86 unit subcut QHS jessica betes 07/06/21 07/08/25 History mL) subcutaneous pen (Tresiba FlexTouch U-100 insulin) meloxicam 15 mg tablet 15 mg PO DAILY PRN Pain 12/2207/09/25 History rosuvastatin 10 mg tablet 10 mg PO DAILY cholesterol 1 07/08/25 History cholecalciferol (vitamin D3) 125 125 mcg PO DAILY SUPP LEMENT 05/03/24 07/09/25 History mcg (5,000 unit) capsule omeprazole 40 mg capsule,delayed 40 mg PO DAILY STOMAC H 05/03/24 07/09/25 History release dulaglutide 4.5 mg/0.5 mL 4.5 mg subcut QWEEK BLOOD JOH[place]ON GAR 10/27/24 07/08/25 History subcutaneous pen injector (Trulicity) empagliflozin 25 mg tablet 25 mg PO DAILY 07/09/25 Unk nown History (Jardiance) Held on 07/09/25. Instructions: MD Ordered furosemide 40 mg tablet 40 mg PO BID EDEMA 07/09/25 07/08/25 History gabapentin 800 mg tablet 800 mg PO TID NEUROPATHY 03/2807/09/25 History hydrocodone-acetaminophen 5-325mg 1 tab PO Q6H PRN tsering n 07/09/25 07/04/25 History 5mg-325mg insulin lispro 100 unit/mL 22 unit subcut TIDCM DIABET ES 07/09/25 Unknown History subcutaneous pen (Humalog KwikPen (U-100) Insulin) insulin lispro 100 unit/mL See Protocol subcut DAILY D IABETES 07/09/25 Unknown History subcutaneous pen (Humalog KwikPen (U-100) Insulin) levothyroxine 300 mcg tablet 300 mcg PO DAILY THYROID 07/09/25 07/08/25 History peg 400-propylene glycol 0.4 %-0.3 1 drp ophthalmic (e ye) 4X/DAY DRY 07/09/25 07/07/25 History % eye drops (Systane Ultra) EYE potassium chloride 10 mEq 10 meq PO DAILY POTASSIUM 07/09/25 History tablet,extended release Allergy/AdvReac Type Severity Reaction Status Date / Time metformin AdvReac Diarrhea Verified 07/09/25 16:21 oxycodone (From Percocet) AdvReac upset Verified 07/09/25 16:21 stomach/off balance Family History Mother Diabetes Father Diabetes Surgical History Previous section History of appendectomy Social History household members: none Smoking Status: Former smoker how long ago did patient quit smoking: Quit cigarette tobacco in 2014, 1 ppd since teenager until quit. alcohol intake: never substance use type: does not use ROS ROS ED ROS Narrative Constitutional: Denies any fevers, chills, headaches Cardiovascular: Denies chest pain Respiratory: Complains of dyspnea on exertion as noted above as well as coughing Abdomen: Denies nausea vomit diarrhea : Denies urinary symptoms Neurological: Denies numbness, weakness, tingling Musculoskeletal: Denies back pain Skin: Denies any rashes or lesions EXAM Physical Exam Narrative Exam Narrative: General: Patient lying in bed rest comfortably did not appear to be acute distress Head: Atraumatic, normocephalic Eyes: PERRL bilaterally, EOMI bilateral, no conjunctival injection noted Neck: Soft, supple, trachea midline Cardiovascular: Regular rate and rhythm Respiratory: Diminished breath sounds bilaterally Extremities: +4/5 strength noted in the bilateral upper and lower extremities, 2+ pitting edema in the bilateral extremities Neurological: Patient documents that she was at [facility] years 2024 Skin: Warm, dry, intact no rashes or lesions noted Const Vital Signs: 07/09/25 16:21 07/09/25 16:41 07/09/25 16:42 Temperature 96.1 F L Temperature Source Temporal Pulse Rate 71 Respiratory Rate 18 Respiratory Effort Short of Breath Respiratory Depth Normal Respiratory Pattern Normal Blood Pressure 146/77 H Blood Pressure Mean 100 Pulse Ox 93 Oxygen Delivery Method Nasal Cannula Nasal Cannula Nasal Cannula Oxygen Flow Rate (L/min) 2 2 2 07/09/25 16:43 Temperature Temperature Source Pulse Rate Respiratory Rate Respiratory Effort Short of Breath Respiratory Depth Respiratory Pattern Blood Pressure Blood Pressure Mean Pulse Ox Oxygen Delivery Method Oxygen Flow Rate (L/min) MDM MDM MDM Narrative Medical decision making narrative: Patient is a 59-year-old female who presents to the emergency department chief complaint of increased weight gain, worsening swelling in her bilateral extremities as well as dyspnea exertion. On the differential diagnosis includes but to ACS, pneumonia, pneumothorax, CHF exacerbation, pleural effusions. Once workup is obtained reviewed she will be reevaluated. Patient's echo from 08/10/2022 reviewed and showed ejection fraction of 55% with no wall motion abnormalities noted. Patient's CBC was reviewed and showed a white blood count of 5.4, hemoglobin 11, platelet count was noted to be 131. Patient sodium normal 143, potassium normal at 4.6, creatinine normal at 1.15. Patient's proBNP was elevated to 37 however have suspicion that this is falsely low secondary to her elevated BMI with her 2+ pitting edema. Patient's chest x-ray reviewed by myself and by radiology which showed cardiomegaly with vascular congestion and interstitial edema. Patient CT scan of her chest was reviewed by myself as this was pushed over from the [facility] facility and there are no large pleural effusions noted on the CT of the chest no evidence of pneumothorax no consolidations to suggest pneumonia. Patient's EKG reviewed showed sinus rhythm at a rate of 70 bpm with [place] interval of 202. Patient ambulated here in the emergency department and became hypoxic on her nasal cannula to 84 percent. Patient be given 40 mg IV Lasix and case will be discussed with the hospitalist for admission for CHF exacerbation Discussed case with hospitalist Dr. Nielson who will except patient for admission. Patient notified is agreeable to plan all question concerns answered. Lab Data Labs: Laboratory Results - last 24 hr 07/09/25 16:35 WBC 5.4 RBC 3.95 L Hgb 11.0 L Hct 35.9 L MCV 90.9 MCH 27.8 MCHC 30.6 L RDW Std Deviation 50.4 H RDW Coeff of Catina 15.1 H Plt Count 131 L MPV 11.2 Immature Gran % (Auto) 0.700 Neut % (Auto) 71.8 H Lymph % (Auto) 15.5 L De[place] % (Auto) 7.2 Eos % (Auto) 4.4 Baso % (Auto) 0.4 Absolute Neuts (auto) 3.9 Absolute Lymphs (auto) 0.84 Nucleated RBC % 0 Sodium 143 Potassium 4.6 Chloride 107 Carbon Dioxide 26.4 Anion Gap 10 BUN 31 H Creatinine 1.15 Estim Creat Clear Calc 66.59 Est GFR (MDRD) Non-Af 55 L BUN/Creatinine Ratio 26.6 H Glucose 225 H Calcium 9.0 NT pro BNP II 237 Radiography Diagnostic Testing: Clinical Impression(s) from Imaging Studies Chest X-Ray 07/09/25 16:53 IMPRESSION: Cardiomegaly with vascular congestion and interstitial edema. No sizable pleural effusion. Reading Location: [id number] Discharge Plan Dx/Rx/DC Orders Clinical Impression: CHF exacerbation, Acute on chronic hypoxic respiratory failure, Dyspnea on e xertion, Swelling of both lower extremities Disposition Disposition: Acute Care Hospital [facility]
--- NOTE | 2025-07-09 18:34 | PCM.HP.STD ---
[facility] - General General Date of Service: 07/09/25 Chief Complaint: Shortness of breath HPI Narrative BETTY AGARWAL, is a 59 F who presents with shortness of breath. This is a 59-year-old female who is on oxygen since having COVID 4-1/2 years ago. Went to see her health care administrator and just has been progressively more short of breath. She has put on roughly 15 pounds in the past few days and has had increased lower extremity edema extending up into her abdomen. She was sent to the emergency room where she had chest x-ray showed some pulmonary vascular congestion. She received 40 mg of IV furosemide. They attempted to ambulate her but she became hypoxic with her oxygen that she does require at home. [ ] [facility] Medical History COVID History of hypothyroidism Type 2 diabetes mellitus treated with insulin Chronic respiratory failure with hypoxia Pericardial effusion Thrombocytopenia Anemia Elevated lipase Urinary retention Obesity Former tobacco use UTI (urinary tract infection) Kidney stones Migraines Hypothyroid Hypercholesteremia Hypertension Type 2 diabetes mellitus Home Medications ?Medication ?Instructions ?Recorded ?Last Taken ?Type estradiol 0.01% (0.1 mg/gram) 3 g vaginal .COMPLEX health 03/25/21 Unknown History vaginal cream maintenance fenofibrate 160 mg tablet 160 mg PO DAILY cholesterol 03/25/21 07/09/25 History vitamin E 268 mg (400 unit) capsule 400 unit PO DAILY supplement 03/25/21 07/09/25 History dicyclomine 10 mg capsule 10 mg PO ACHS abdominal pain 07/06/21 Unknown History insulin degludec 100 unit/mL (3 86 unit subcut QHS diabetes 07/06/21 07/08/25 History mL) subcutaneous pen (Tresiba FlexTouch U-100 insulin) meloxicam 15 mg tablet 15 mg PO DAILY PRN Pain 07/06/21 07/09/25 History rosuvastatin 10 mg tablet 10 mg PO DAILY cholesterol 07/06/21 07/08/25 History cholecalciferol (vitamin D3) 125 125 mcg PO DAILY SUPPLEMENT 05/03/24 07/09/25 History mcg (5,000 unit) capsule omeprazole 40 mg capsule,delayed 40 mg PO DAILY STOMACH 05/03/24 07/09/25 History release dulaglutide 4.5 mg/0.5 mL 4.5 mg subcut QWEEK BLOOD SUGAR 10/27/24 07/08/25 History subcutaneous pen injector (Trulicity) empagliflozin 25 mg tablet 25 mg PO DAILY 07/09/25 Unknown History (Jardiance) Held on 07/09/25. Instructions: MD Ordered furosemide 40 mg tablet 40 mg PO BID EDEMA 07/09/25 07/08/25 History gabapentin 800 mg tablet 800 mg PO TID NEUROPATHY 07/09/25 07/09/25 History hydrocodone-acetaminophen 5-325mg 1 tab PO Q6H PRN pain 07/09/25 07/04/25 History 5mg-325mg insulin lispro 100 unit/mL 22 unit subcut TIDCM DIABETES 07/09/25 Unknown History subcutaneous pen (Humalog KwikPen (U-100) Insulin) insulin lispro 100 unit/mL See Protocol subcut DAILY DIABETES 07/09/25 Unknown History subcutaneous pen (Humalog KwikPen (U-100) Insulin) levothyroxine 300 mcg tablet 300 mcg PO DAILY THYROID 07/09/25 07/08/25 History peg 400-propylene glycol 0.4 %-0.3 1 drp ophthalmic (eye) 4X/DAY DRY 07/09/25 07/07/25 History % eye drops (Systane Ultra) EYE potassium chloride 10 mEq 10 meq PO DAILY POTASSIUM 07/09/25 07/09/25 History tablet,extended release Allergy/AdvReac Type Severity Reaction Status Date / Time metformin AdvReac Diarrhea Verified 07/09/25 16:21 oxycodone (From Percocet) AdvReac upset Verified 07/09/25 16:21 stomach/off balance Family History Mother Diabetes Father Diabetes Surgical History Previous section History of appendectomy Social History household members: none Smoking Status: Former smoker how long ago did patient quit smoking: Quit cigarette tobacco in 2014, 1 ppd since teenager until quit. alcohol intake: never substance use type: does not use ROS ROS Narrative Midsternal chest pain with deep respirations. Coughing up some reynolds phlegm. All review of systems were negative except as mentioned above in the history of present illness and the other review of systems. Vital Signs Vital Signs Vital Signs: 07/09/25 16:21 07/09/25 16:41 07/09/25 16:42 Temperature 35.6 C L Temperature Source Temporal Pulse Rate 71 Respiratory Rate 18 Respiratory Effort Short of Breath Respiratory Depth Normal Respiratory Pattern Normal Blood Pressure 146/77 H Blood Pressure Mean 100 Pulse Ox 93 Oxygen Delivery Method Nasal Cannula Nasal Cannula Nasal Cannula Oxygen Flow Rate (L/min) 2 2 2 07/09/25 16:43 07/09/25 16:47 07/09/25 16:50 Temperature Temperature Source Pulse Rate 73 Respiratory Rate 17 Respiratory Effort Short of Breath Respiratory Depth Respiratory Pattern Blood Pressure 132/110 H Blood Pressure Mean 117 Pulse Ox 100 Oxygen Delivery Method Oxygen Flow Rate (L/min) 07/09/25 17:00 07/09/25 17:15 07/09/25 17:30 Temperature Temperature Source Pulse Rate Respiratory Rate Respiratory Effort Respiratory Depth Respiratory Pattern Blood Pressure 157/87 H Blood Pressure Mean 107 Pulse Ox 97 97 98 Oxygen Delivery Method Oxygen Flow Rate (L/min) 07/09/25 17:45 07/09/25 18:05 07/09/25 18:06 Temperature Temperature Source Pulse Rate 76 Respiratory Rate 19 H Respiratory Effort Respiratory Depth Respiratory Pattern Blood Pressure 141/70 H Blood Pressure Mean 91 Pulse Ox 96 92 Oxygen Delivery Method Oxygen Flow Rate (L/min) 07/09/25 18:15 07/09/25 18:23 Temperature 37.2 C Temperature Source Pulse Rate 71 71 Respiratory Rate 15 19 H Respiratory Effort Respiratory Depth Respiratory Pattern Blood Pressure 181/73 H 181/73 H Blood Pressure Mean 101 109 Pulse Ox 98 99 Oxygen Delivery Method Nasal Cannula Oxygen Flow Rate (L/min) 2 Weight Weight: 121.608 kg Body Mass Index (BMI) 47.5 Physical Exam Const alert and no apparent distress Constitutional Narrative: On oxygen. No respiratory distress. No conversational dyspnea. HEENT normocephalic and head/scalp atraumatic Resp normal respiratory effort, no retractions, no use of accessory muscles and clear to auscultation bilaterally Cardio regular rate, regular rhythm, S1 normal heart sound and S2 normal heart sound GI normal to inspection, nondistended, normoactive bowel sounds, soft to palpation, non-tender and non-distended Extremity Extremity Narrative: Tight bilateral lower extremity edema. Neuro moves all extremities Sensorium / Orientation: awake and alert Speech: speech normal Psych Psych Narrative: Flat affect Results Lab / Micro Data Attestation: I reviewed the patient's lab results. 07/09/25 16:35 07/09/25 16:35 Labs: Laboratory Results - last 24 hr 07/09/25 16:35: WBC 5.4, RBC 3.95 L, Hgb 11.0 L, Hct 35.9 L, MCV 90.9, MCH 27.8, MCHC 30.6 L, RDW Std Deviation 50.4 H, RDW Coeff of Catina 15.1 H, Plt Count 131 L, MPV 11.2, Immature Gran % (Auto) 0.700, Neut % (Auto) 71.8 H, Lymph % (Auto) 15.5 L, [place] % (Auto) 7.2, Eos % (Auto) 4.4, Baso % (Auto) 0.4, Absolute Neuts (auto) 3.9, Absolute Lymphs (auto) 0.84, Nucleated RBC % 0, Sodium 143, Potassium 4.6, Chloride 107, Carbon Dioxide 26.4, Anion Gap 10, BUN 31 H, Creatinine 1.15, Estim Creat Clear Calc 66.59, Est GFR (MDRD) Non-Af 55 L, BUN/Creatinine Ratio 26.6 H, Glucose 225 H, Calcium 9.0, NT pro BNP II 237 EKG Initial EKG: Attestation: I personally reviewed and interpreted this EKG as follows: Prior EKG tracings: available for review EKG Rhythm Intrepretation: Sinus Rhythm Imaging Radiology Impression Chest X-Ray 07/09/25 16:53 IMPRESSION: Cardiomegaly with vascular congestion and interstitial edema. No sizable pleural effusion. Reading Location: [id number] Assessment & Plan Assessment/Plan (1) CHF exacerbation: PLAN: Unclear type. Weight is gone up 15 pounds in the past few days and she does have clinical evidence of volume overload and chest x-ray shows pulmonary vascular congestion. Patient received 40 mg of IV furosemide in emergency room and will continue with 40 mg IV twice daily. Additionally, patient be fluid restricted. Patient states that she drinks several bottles of fluid as well as other sugar-free beverages throughout the day. I think the patient would benefit from fluid restricted diet and further instructions about checking her weight daily. Will repeat echocardiogram as last 1 was performed in our EMR in 2021. PLAN: Plan Diabetes mellitus type 2: Insulin-dependent. Continue with basal, prandial and will add sliding scale insulin. Check an A1c. Obesity class III: Complicates care and recovery. Weight loss advised. Nutrition to provide further instructions. Diabetic neuropathy: Continue with glargine, patient has prescription for hydrocodone/acetaminophen we will continue with that. VTE prophylaxis with enoxaparin CODE STATUS: Addressed with the patient. Patient wishes to be full code. Charges/Coding Visit Charges Inpatient E&M: 51070 Init Hosp L2
--- NOTE | 2025-07-09 19:04 | CASEMGMT ---
Care Management Face to Face with patient for initial transition planning/care coordination assessment in the ED.? This specifications writer introduced self and role at [facility]. Patient alert and oriented. Patient willing to participate in assessment and is able to answer all questions appropriately.? Care providers, pharmacy, and demographics verified. 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 Patient reports to being independent with ADL and IADLs.? Transportation: sister in law drives DME: ?cane, walker, O2:? supplies from [employer], 2 L during day 4 L at night HHC: ?[facility] SNF/Rehab: ?none Community Resources: ?none Behavioral Health History: Patient goals: Patient wishes to discharge home, denies need for home health care at this time. Patient denies any further needs or concerns at this time. Disposition Plan: admission to acute; RN CM/SW to follow for discharge planning needs that may arise. Martha Lora, SECRETARY OFFICE CLERK, ACCOUNTS PAYABLE SUPERVISOR
--- NOTE | 2025-07-09 19:17 | ECHOD_ITS ---
Reason For Study Reason For Study: CHF Procedure This was a 2D Doppler, Color Flow transthoracic echocardiogram. Exam performed portable in patient room. Left Ventricle Normal LV size. Mild concentric left ventricular hypertrophy. Left ventricular systolic function is normal. The left ventricular ejection fraction is 55 %. No regional wall motion abnormalities noted. Right Ventricle Normal RV size. Normal systolic function. Atria Normal left atrium. Normal right atrium. Mitral Valve There is mild mitral annular calcification. Mild (1+) eccentric mitral valve insufficiency. Tricuspid Valve Normal tricuspid valve. Mild (1+) tricuspid valve insufficiency. Pulmonary artery systolic pressure is 32 mmHg. Aortic Valve Trisinus/trileaflet aortic valve. Mild (1+) aortic valve insufficiency. Pulmonic Valve Normal pulmonic valve. Great Vessels Normal aortic root. The pulmonary artery is normal size. Inferior vena cava collapse with respiration. Pericardium/Pleural Small (<1.0 cm) pericardial effusion. There are no echocardiographic indications of cardiac tamponade. MMode/2D Measurements & Calculations LVIDd: 5.1 cm IVSd: 1.4 cm Ao root diam: 3.4 cm LVIDs: 3.2 cm LVPWd: 1.4 cm RVDd: 3.3 cm FS: 37.9 % LAV(MOD-bp): 55.0 ml LVAd ap4: 33.1 cm2 SV(MOD-sp4): 57.0 ml LAV(MOD-bp) Indexed: 25.4 ml/m2 LVLd ap4: 8.8 cm SI(MOD-sp4): 26.3 ml/m2 LAV(MOD-sp2): 51.6 ml EDV(MOD-sp4): 105.1 ml LAV(MOD-sp4): 57.9 ml EDV(sp4-el): 105.6 ml LVAs ap4: 20.4 cm2 LVLs ap4: 7.9 cm ESV(MOD-sp4): 48.1 ml ESV(sp4-el): 44.9 ml EF(MOD-sp4): 54.2 % EF(sp4-el): 57.5 % SV(sp4-el): 60.7 ml LA A4 area: 21.0 cm2 LA dimension(2D): 4.7 cm RA A4 area: 12.2 cm2 Time Measurements MV dec time: 0.17 sec Doppler Measurements & Calculations MV E max riccardo: 108.5 cm/sec Lat Peak E' Riccardo: 8.5 cm/sec Med Peak E' Riccardo: 5.9 cm/sec MV A max riccardo: 95.0 cm/sec E/E' lat: 12.7 E/E' med: 18.3 MV E/A: 1.1 MV V2 max: 106.6 cm/sec MV P1/2t max riccardo: 107.8 cm/sec Ao V2 max: 139.1 cm/sec MV max P.5 mmHg MV P1/2t: 60.2 msec Ao max P.7 mmHg MV V2 mean: 65.8 cm/sec Ao V2 mean: 93.7 cm/sec MV mean P.0 mmHg MV dec slope: 524.8 cm/sec2 Ao mean P.1 mmHg MV V2 VTI: 30.6 cm MVA(P1/2t): 3.7 cm2 Ao V2 VTI: 32.7 cm AV (velocity ratio): 0.88 AI max riccardo: 357.8 cm/sec LV V1 max: 112.9 cm/sec PA V2 max: 92.4 cm/sec AI max P.2 mmHg LV V1 max P.1 mmHg LV V1 mean P.1 mmHg AI dec slope: 222.8 cm/sec2 LV V1 mean: 82.2 cm/sec AI P1/2t: 470.4 msec LV V1 VTI: 28.6 cm TR max riccardo: 264.8 cm/sec TR max P.1 mmHg ECHO/Echo Complete Interpretation Summary Normal LV size. Left ventricular systolic function is normal. The left ventricular ejection fraction is 55 %. Small (<1.0 cm) pericardial effusion. There are no echocardiographic indications of cardiac tamponade. Mild (1+) aortic valve insufficiency. Ordering Physician: Tavo Nielson Performed By: Shane Hart RCS
[2025-07-09] MEDS: CARBOXYMETHYLCELLULOSE SODIUM 1 DRP DROPS OPHTHALMIC (22:22)
[2025-07-09] MEDS: Insulin Glargine-YFGN 100 UNIT/ML Pen 86 UNIT SC (22:23)
[2025-07-10 03:11] VITALS: BMI 45.1
[2025-07-10 03:45] VITALS: BP 108/67; PULSE 72; RESP 18; TEMP 36.4; O2SAT 95
[2025-07-10 05:53] LABS: Hematocrit 32.9 % (37-47); Hemoglobin 10.4 g/dL (12.0-15.0); Immature Granulocytes Count 0.040 X10^3/uL (0.0-0.0); Mean Corp Hgb Conc 31.6 g/dL (32-36); Mean Corpuscular Volume 89.6 fL (81-99); Mean Platelet Vol. 11.6 fl (6.2-12.0); NRBC Flagged by Analyzer 0 % (0-5); Platelet Count 135 K/mm3 (150-450); RBC Distribution Width CV 15.5 % (11.6-14.6); RBC Distribution Width SD 50.6 fl (35.1-43.9); Red Blood Count 3.67 M/mm3 (4.2-5.4); White Blood Count 5.2 K/mm3 (4.4-11.0)
[2025-07-10 06:00] VITALS: BMI 45.1
[2025-07-10 06:12] LABS: Anion Gap 8 (5-15); BUN 33 mg/dL (4-19); BUN/Creat Ratio 24.3 RATIO (10-20); Calcium,Total 9.1 mg/dL (7.6-11.0); Carbon Dioxide 29.4 mmol/L (21.0-32.0); Chloride 108 mmol/L (98-108); Estimated Creatinine Clearance 57.45 ml/min (50-250); Glucose 124 mg/dL (70-99); Potassium 4.0 mmol/L (3.3-5.1)
--- NOTE | 2025-07-10 07:33 | PCM.PN.HOSP ---
Reason for Visit Chief Complaint: Shortness of breath Subjective Subjective Patient feeling little bit better, still having some swelling and shortness of breath but slowly improving with Lasix Objective Data Objective Data Vital Signs: Vital Signs Temp Pulse Resp BP Pulse Ox O2 Del Method O2 Flow Rate 97.5 F L 72 18 108/67 95 Nasal Cannula 2 07/10/25 03:45 07/10/25 03:45 07/10/25 03:45 07/10/25 03:45 07/10/25 03:45 07/10/25 03:45 07/10/25 03:45 Oxygen Flow Rate (L/min) 2 Oxygen Delivery Method Nasal Cannula Weight: 119.2 kg Body Mass Index (BMI) 45.1 Intake & Output: Intake and Output for Last 24 Hours 07/08/25 07/09/25 07/10/25 23:59 23:59 23:59 Intake Total 480 / 480 Output Total 950 / 950 Balance -470 / -470 Lab / Micro Data 07/10/25 04:41 07/10/25 04:41 Labs: Laboratory Results - last 24 hr 07/09/25 16:35: WBC 5.4, RBC 3.95 L, Hgb 11.0 L, Hct 35.9 L, MCV 90.9, MCH 27.8, MCHC 30.6 L, RDW Std Deviation 50.4 H, RDW Coeff of Catina 15.1 H, Plt Count 131 L, MPV 11.2, Immature Gran % (Auto) 0.700, Neut % (Auto) 71.8 H, Lymph % (Auto) 15.5 L, Morrill % (Auto) 7.2, Eos % (Auto) 4.4, Baso % (Auto) 0.4, Absolute Neuts (auto) 3.9, Absolute Lymphs (auto) 0.84, Nucleated RBC % 0, Sodium 143, Potassium 4.6, Chloride 107, Carbon Dioxide 26.4, Anion Gap 10, BUN 31 H, Creatinine 1.15, Estim Creat Clear Calc 66.59, Est GFR (MDRD) Non-Af 55 L, BUN/Creatinine Ratio 26.6 H, Glucose 225 H, Calcium 9.0, NT pro BNP II 237 07/09/25 22:17: POC Glucose 210 H 07/10/25 04:41: WBC 5.2, RBC 3.67 L, Hgb 10.4 L, Hct 32.9 L, MCV 89.6, MCH 28.3, MCHC 31.6 L, RDW Std Deviation 50.6 H, RDW Coeff of Catina 15.5 H, Plt Count 135 L, MPV 11.6, Immature Gran % (Auto) 0.800, Neut % (Auto) 59.1, Lymph % (Auto) 23.4, Morrill % (Auto) 9.5, Eos % (Auto) 6.8 H, Baso % (Auto) 0.4, Absolute Neuts (auto) 3.1, Absolute Lymphs (auto) 1.21, Nucleated RBC % 0, Sodium 145, Potassium 4.0, Chloride 108, Carbon Dioxide 29.4, Anion Gap 8, BUN 33 H, Creatinine 1.34 H, Estim Creat Clear Calc 57.45, Est GFR (MDRD) Non-Af 46 L, BUN/Creatinine Ratio 24.3 H, Glucose 124 H, Hemoglobin A1c 8.5 H, Calcium 9.1 Radiography Diagnostic Testing: Radiology Impression Chest X-Ray 07/09/25 16:53 IMPRESSION: Cardiomegaly with vascular congestion and interstitial edema. No sizable pleural effusion. Reading Location: [facility] Physical Exam Narrative General: Alert, no apparent distress HEENT: Atraumatic, normocephalic Eyes: Anicteric, normal conjunctiva, extraocular movements grossly intact Neck: Supple Respiratory: Diminished at the bases, slight increased respiratory effort Cardiovascular: Regular rate and rhythm GI: Soft, nontender, nondistended Extremities: Bilateral lower extremity edema, mild degree of pitting Musculoskeletal: Moving all extremities Neuro: No overt focal neurological deficits Skin: No rashes appreciated Psych: Cooperative Assessment & Plan Assessment/Plan (1) Fluid overload: (2) Acute on chronic hypoxic respiratory failure: PLAN: Plan 59F 59-year-old female with a history of hypothyroidism, type 2 diabetes, chronic hypoxic respiratory failure on 2 L nasal cannula, GERD who presented [facility] ED 07/10/2025 from her pulmonary office due to increased shortness of breath on exertion and weight gain. She has reportedly gained 13 pounds since last week when may have missed a few doses of her Lasix. She had a CT scan earlier today reportedly which showed fluid in her lungs and pulmonology sent her to the ED from the office for further evaluation. In the ED patient had pitting edema, noted weight gain and dyspnea on exertion and was hypoxic to 84% on her home nasal cannula. Chest x-ray showed cardiomegaly and vascular congestion with interstitial edema, BNP only noted to be 237 however unclear significance given patient's entire picture highly suggestive of fluid overload. Patient given 40 of IV Lasix and hospitalist contacted for admission. # Acute on chronic hypoxic respiratory failure suspect secondary to fluid overload -Admit to telemetry -proBNP 237 -CXR cardiomegaly with vascular congestion and interstitial edema -Continue IV lasix -Last echo in 2021 with normal EF and normal LV size, I do not see any evidence of history of heart failure in our documentation however patient appears to follow in an outside hospital system primarily -Repeat echo ordered and showed EF of 55% with mild concentric left ventricular hypertrophy and small less than 1 cm pericardial effusion with no indication of tamponade -Daily weights, I's and O's -Fluid restriction, heart healthy diet #Type 2 diabetes mellitus -A1c this a.m. 8.5 -Glucose checks and sliding scale insulin -Continue long-acting insulin #Hypothyroidism -Continue Synthroid -TSH earlier this year was 79 -Repeat TSH today 15.9, discussed compliance with Synthroid the patient she reports she has been compliant. When asking if she takes it she noted she takes it at night because she was told not to take with her other medications, we discussed taking in the morning at least 2 hours before food or other medications and she verbalized understanding - Hypothyroidism could certainly contribute to her fluid overload, edema, and shortness of breath though I suspect this is a contributor but not the cause # Normocytic anemia - Hemoglobin 10.4, vacillates with previous used to have been in similar range previously #GERD -Continue PPI #Morbid obesity -BMI documented as 45 kg/m? at time of admission -Complicates treatment, prognosis, outcomes -Recommend weight loss and lifestyle changes #DVT ppx: Lovenox SQ twice daily Asya Hernandez MD Charges/Coding Visit Charges Inpatient E&M: 12515 Subs Hosp L2
[2025-07-10 08:08] VITALS: BP 109/53; PULSE 68; RESP 17; TEMP 36.3; O2SAT 97
[2025-07-10] MEDS: Potassium Chloride Oral Tablet 10 MEQ PO (08:13)
[2025-07-10] MEDS: Cholecalciferol (Vit D3) 125 MCG CAPSULE (5,000 UNITS) PO (10:00)
[2025-07-10] MEDS: CARBOXYMETHYLCELLULOSE SODIUM 1 DRP DROPS OPHTHALMIC ×4 (10:00→22:08)
--- NOTE | 2025-07-10 10:39 | CASEMGMT ---
Social Work RANGEL spoke with the patient. Patient lives at home with her son. Her brother lives next door and can check on her son. She has guardianship of her son. She reported her son is ambulatory and he can complete his own ADL's. She reported her JOSEE took him to the grocery store when she came into the hospital. Patient reported her hot water tank does not have hot water, but she is working on getting it fixed. The repairman turned the hot water line off because it was leaking. She has cold water. SW gave her [employer] and [employer] for resources. ANA Benavidez
[2025-07-10 14:10] VITALS: BP 129/66; PULSE 72; RESP 17; TEMP 36.7; O2SAT 93
--- NOTE | 2025-07-10 14:29 | CHAPLAIN ---
Type of Pastoral Visit _x__ Initial Visit ___ Follow-up Visit ___ On-call Visit ___ General Patient Visit ___ Spiritual Assessment ___ Family Conference ___ Bereavement ___ Rapid Response ___ Code Blue ___ Other (describe below) Pastoral Care Referral From _x__ Patient ___ Family ___ Nurse ___ Physician ___ Forensic Psychiatrist ___ Innersole Fitter ___ Other (describe below) Sacrament/Intervention _x__ Active listening ___ Anointing ___ Yazdanism ___ Bereavement ___ Communion ___ Vicky exploration ___ ___ Life review _x__ Prayer ___ Reconciliation ___ Sacrament of Sick _x__ Supportive presence ___ Wedding ___ Other (describe below) Pastoral Comments patient speaks of some health needs but more about her family and what they need; pt asks for prayer for self and family; pt is waiting to see if treatments/medications will work for her; pt denies further worries
[2025-07-10 22:00] VITALS: BP 136/63; PULSE 72; RESP 16; TEMP 36.4; O2SAT 98
[2025-07-11] MEDS: 0.9% Saline Lock 10 ML Syringe IV (00:02)
[2025-07-11 03:15] VITALS: BP 119/60; PULSE 75; RESP 16; TEMP 36.4; O2SAT 97
[2025-07-11 04:04] VITALS: BMI 45.4
[2025-07-11 05:52] LABS: Hematocrit 33.9 % (37-47); Hemoglobin 10.6 g/dL (12.0-15.0); Mean Corp Hgb Conc 31.3 g/dL (32-36); Mean Corpuscular Volume 91.1 fL (81-99); Mean Platelet Vol. 11.4 fl (6.2-12.0); Platelet Count 128 K/mm3 (150-450); RBC Distribution Width CV 15.4 % (11.6-14.6); RBC Distribution Width SD 51.5 fl (35.1-43.9); Red Blood Count 3.72 M/mm3 (4.2-5.4); White Blood Count 5.2 K/mm3 (4.4-11.0)
[2025-07-11 06:25] LABS: Anion Gap 9 (5-15); BUN 33 mg/dL (4-19); BUN/Creat Ratio 21.9 RATIO (10-20); Calcium,Total 9.2 mg/dL (7.6-11.0); Carbon Dioxide 30.9 mmol/L (21.0-32.0); Chloride 103 mmol/L (98-108); Estimated Creatinine Clearance 50.90 ml/min (50-250); Glucose 127 mg/dL (70-99); Potassium 4.0 mmol/L (3.3-5.1)
[2025-07-11 08:03] VITALS: O2SAT 93
[2025-07-11 08:55] VITALS: BP 133/60; PULSE 64; RESP 18; TEMP 36.2; O2SAT 96
[2025-07-11] MEDS: Cholecalciferol (Vit D3) 125 MCG CAPSULE (5,000 UNITS) PO (08:57)
[2025-07-11] MEDS: Potassium Chloride Oral Tablet 10 MEQ PO (08:57)
[2025-07-11] MEDS: CARBOXYMETHYLCELLULOSE SODIUM 1 DRP DROPS OPHTHALMIC ×4 (08:58→21:08)
--- NOTE | 2025-07-11 10:54 | PN.HOSP_ITS ---
Reason for Visit Chief Complaint: Shortness of breath Subjective Subjective Patient Basali having improved breathing however still feels she is not ready for discharge still having some lower extremity swelling Objective Data Objective Data Vital Signs: Vital Signs Temp Pulse Resp BP Pulse Ox O2 Del Method O2 Flow Rate 97.2 F L 64 18 133/60 H 96 Nasal Cannula 2 07/11/25 08:55 07/11/25 08:55 07/11/25 08:55 07/11/25 08:55 07/11/25 08:55 07/11/25 08:55 07/11/25 08:55 Oxygen Flow Rate (L/min) 2 Oxygen Delivery Method Nasal Cannula Weight: 120.2 kg Body Mass Index (BMI) 45.4 Intake & Output: Intake and Output for Last 24 Hours 07/09/25 07/10/25 07/11/25 23:59 23:59 23:59 Intake Total 1360 / 1600 480 / 480 Output Total 2150 / 3050 1999 / 1999 Balance -790 / -1450 -1520 / -1520 Lab / Micro Data 07/11/25 05:34 07/11/25 05:34 Labs: Laboratory Results - last 24 hr 07/10/25 08:11: POC Glucose 81 07/10/25 11:29: POC Glucose 93 07/10/25 16:53: POC Glucose 97 07/10/25 22:05: POC Glucose 100 07/11/25 05:34: WBC 5.2, RBC 3.72 L, Hgb 10.6 L, Hct 33.9 L, MCV 91.1, MCH 28.5, MCHC 31.3 L, RDW Std Deviation 51.5 H, RDW Coeff of Catina 15.4 H, Plt Count 128 L, MPV 11.4, Sodium 143, Potassium 4.0, Chloride 103, Carbon Dioxide 30.9, Anion Gap 9, BUN 33 H, Creatinine 1.52 H, Estim Creat Clear Calc 50.90, Est GFR (MDRD) Non-Af 39 L, BUN/Creatinine Ratio 21.9 H, Glucose 127 H, Calcium 9.2 07/11/25 08:42: POC Glucose 103 Radiography Diagnostic Testing: Radiology Impression Echocardiogram 07/09/25 19:17 Interpretation Summary Normal LV size. Left ventricular systolic function is normal. The left ventricular ejection fraction is 55 %. Small (<1.0 cm) pericardial effusion. There are no echocardiographic indications of cardiac tamponade. Mild (1+) aortic valve insufficiency. Ordering Physician: Tavo Nielson Performed By: Shane Hart RCS Physical Exam Narrative General: Alert, no apparent distress HEENT: Atraumatic, normocephalic Eyes: Anicteric, normal conjunctiva, extraocular movements grossly intact Neck: Supple Respiratory: Diminished at the bases without any overt wheezes or rhonchi, normal respiratory effort Cardiovascular: Regular rate and rhythm GI: Soft, nontender, nondistended Extremities: Bilateral lower extremity edema, mild degree of pitting Musculoskeletal: Moving all extremities Neuro: No overt focal neurological deficits Skin: No rashes appreciated Psych: Cooperative Assessment & Plan Assessment/Plan (1) Fluid overload: (2) Acute on chronic hypoxic respiratory failure: PLAN: Plan 59F 59-year-old female with a history of hypothyroidism, type 2 diabetes, chronic hypoxic respiratory failure on 2 L nasal cannula, GERD who presented [facility] ED 07/10/2025 from her pulmonary office due to increased shortness of breath on exertion and weight gain. She has reportedly gained 13 pounds since last week when may have missed a few doses of her Lasix. She had a CT scan earlier today reportedly which showed fluid in her lungs and pulmonology sent her to the ED from the office for further evaluation. In the ED patient had pitting edema, noted weight gain and dyspnea on exertion and was hypoxic to 84% on her home nasal cannula. Chest x-ray showed cardiomegaly and vascular congestion with interstitial edema, BNP only noted to be 237 however unclear significance given patient's entire picture highly suggestive of fluid overload. Patient given 40 of IV Lasix and hospitalist contacted for admission. # Acute on chronic hypoxic respiratory failure suspect secondary to fluid overload -Admit to telemetry -proBNP 237 -CXR cardiomegaly with vascular congestion and interstitial edema -Continue IV lasix -Last echo in 2021 with normal EF and normal LV size, I do not see any evidence of history of heart failure in our documentation however patient appears to follow in an outside hospital system primarily -Repeat echo ordered and showed EF of 55% with mild concentric left ventricular hypertrophy and small less than 1 cm pericardial effusion with no indication of tamponade -Daily weights, I's and O's -Fluid restriction, heart healthy diet -07/11: Plan is going to be to discharge patient home, will see if she tolerates p.o. Lasix and has continued improvement, if so can likely DC tomorrow. #Type 2 diabetes mellitus -A1c this a.m. 8.5 -Glucose checks and sliding scale insulin -Continue long-acting insulin -07/11: Glucose 103, slightly decreased insulin to avoid hypoglycemia while inpatient as this is stricter control and as necessary and increases her risk of hypoglycemia #Hypothyroidism -Continue Synthroid -TSH earlier this year was 79 -Repeat TSH today 15.9, discussed compliance with Synthroid the patient she reports she has been compliant. When asking if she takes it she noted she takes it at night because she was told not to take with her other medications, we discussed taking in the morning at least 2 hours before food or other medications and she verbalized understanding - Hypothyroidism could certainly contribute to her fluid overload, edema, and shortness of breath though I suspect this is a contributor but not the cause -07/11: Taking levothyroxine as prescribed # Normocytic anemia - Hemoglobin 10.4, vacillates with previous used to have been in similar range previously -07/11: Hemoglobin 10.6, stable Chronic medical problems and/or problems not being actively addressed during today's encounter: #GERD -Continue PPI #Morbid obesity -BMI documented as 45 kg/m? at time of admission -Complicates treatment, prognosis, outcomes -Recommend weight loss and lifestyle changes #DVT ppx: Lovenox SQ twice daily Asya Hernandez MD Charges/Coding Visit Charges Inpatient E&M: 71907 Subs Hosp L2
[2025-07-11 14:55] VITALS: BP 130/69; PULSE 73; RESP 18; TEMP 36.2; O2SAT 94
[2025-07-11 20:57] VITALS: BP 126/56; PULSE 73; RESP 18; TEMP 36.3; O2SAT 94
[2025-07-11] MEDS: Insulin Glargine-YFGN 100 UNIT/ML Pen 80 UNIT SC (21:04)
[2025-07-12 03:20] VITALS: BP 126/67; PULSE 76; RESP 18; TEMP 36.4; O2SAT 94
[2025-07-12 04:48] VITALS: BMI 44.4
[2025-07-12 06:00] VITALS: BMI 44.6
[2025-07-12 06:13] LABS: Hematocrit 33.4 % (37-47); Hemoglobin 10.4 g/dL (12.0-15.0); Mean Corp Hgb Conc 31.1 g/dL (32-36); Mean Corpuscular Volume 90.8 fL (81-99); Mean Platelet Vol. 11.3 fl (6.2-12.0); Platelet Count 135 K/mm3 (150-450); RBC Distribution Width CV 15.1 % (11.6-14.6); RBC Distribution Width SD 50.3 fl (35.1-43.9); Red Blood Count 3.68 M/mm3 (4.2-5.4); White Blood Count 5.2 K/mm3 (4.4-11.0)
[2025-07-12 06:26] LABS: Anion Gap 10 (5-15); BUN 36 mg/dL (4-19); BUN/Creat Ratio 22.9 RATIO (10-20); Calcium,Total 9.1 mg/dL (7.6-11.0); Carbon Dioxide 29.9 mmol/L (21.0-32.0); Chloride 101 mmol/L (98-108); Estimated Creatinine Clearance 49.03 ml/min (50-250); Glucose 162 mg/dL (70-99); Potassium 4.1 mmol/L (3.3-5.1)
[2025-07-12 09:00] VITALS: O2SAT 97
[2025-07-12 09:18] VITALS: BP 120/55; PULSE 73; RESP 16; TEMP 36.4; O2SAT 94
[2025-07-12] MEDS: Potassium Chloride Oral Tablet 10 MEQ PO (09:21)
[2025-07-12] MEDS: Cholecalciferol (Vit D3) 125 MCG CAPSULE (5,000 UNITS) PO (09:22)
[2025-07-12] MEDS: CARBOXYMETHYLCELLULOSE SODIUM 1 DRP DROPS OPHTHALMIC ×2 (09:22→14:49)
[2025-07-12 14:15] VITALS: O2SAT 87; O2SAT 90; O2SAT 95
[2025-07-12 14:52] VITALS: BP 118/55; PULSE 71; RESP 18; TEMP 36.1; O2SAT 94
--- NOTE | 2025-07-12 14:57 | DCINST_ITS ---
Discharge Instructions DC O2, CPAP, BIPAP needs Home O2 Discharge instructions: Yes Type of respiratory needs?: Oxygen (2) Oxy gen frequency: Continuous Continuous oxygen liters per minute: 2 Dressing / Incision Discharge Activity: - (Increase activity as tolerated) Follow Up Care Test Results: Test results from this visit will be discussed in further detail at your follow- up appointment, if applicable. Discharge Plan Admission Admit Date/Time: 07/09/25 18:29 Primary Reason for Your Visit: Shortness of breath Attending Provider: Asya Hernandez Primary Care Provider: Rebeka Rabago Consulting Providers: Tavo Nielson Instructions Patient Instructions: Heart Failure Make Changes Diet, Heart Failure Dc Additional Instructions / Restrictions: DISCHARGE INSTRUCTIONS PLEASE READ *Please take this with you to your next doctors appointment* -Would recommend lab work (BMP) to check your kidney function in 2 to 3 days through your primary care physician's office. Please call their office upon discharge to obtain order for lab work. -Resume your Lasix 40 mg once in the morning and once in the afternoon, it is very important that you take these medications on time -Weigh yourself every day. A sudden weight gain can mean you are retaining flui d. Weigh yourself at the same time of day and in the same kind of clothes. Ideally, weigh yourself first thing in the morning after you empty your bladder, but before you eat breakfast. -Please call your physician if your weight goes up by more than 2 pounds in 1 day or 5 pounds in 1 week. This can be a sign that you are retaining more fluid than you should be. Clues to weight gain include checking your ankles for swelling, or noticing you are short of breath when you lie down -Please limit your sodium intake to less than 3 g/day. And your fluid intake to less than 1800 mL a day Here are tips: Limit canned, dried, packaged, and fast foods. Don't add salt to your food at the table. Season foods with herbs instead of salt when you cook. When you eat out, ask that the chef de partie not add any salt to your dish. Don't eat fried or greasy foods. Be careful of bottled beverages. They can contain a lot of salt -Call 911 right away if you have: -Severe shortness of breath, such that you can't catch your breath even while resting -Severe chest pain that does not resolve with rest or nitroglycerin -[place], foamy mucus with cough and shortness of breath -An ongoing rapid or irregular heartbeat -Passing out or fainting -Stroke symptoms such as sudden numbness or weakness on one side of your face, arm, or leg or sudden confusion, trouble speaking or vision changes -Take levothyroxine on an empty stomach with 1 cup of water (250ml) at least four hours after eating. Then wait minutes before consuming any other food or beverage, especially coffee. This medicine will work best if you take it about at the same time every day. Separate levothyroxine from vitamins and antacids or medicines with calcium or iron by at least 4 hours before and after taking this medicine. Stop taking any biotin supplement 4 days prior to having labs drawn. It is important you keep taking each dose of this medicine on time even if you are feeling well. If you forget to take a dose on time, take in as soon as you remember unless it is almost time for the next dose and return to your normal schedule. Do not take two doses at one time - Would advise you discontinue meloxicam as this can be hard on the kidneys - Jardiance was taken off your medication list as it was indicated they are not taking this -Please call your primary care provider's office upon discharge to schedule a hospital follow up within 1 week. -For any concerning signs or symptoms please call 911 or proceed to the nearest emergency department Discharge Orders/Prescriptions Prescriptions: Continued estradiol 0.01 % (0.1 mg/gram) cream 3 g VAGINAL .COMPLEX Patient Comments: insert 3 grams vaginally two times a week PT HAS NOT BEEN USING LATELY. Rx Instructions: 3 grams vaginally 2 TIMES PER WEEK; fenofibrate 160 mg tablet 160 mg PO DAILY Patient Comments: take 1 tablet by mouth once daily vitamin E 400 unit Capsule 400 unit PO DAILY dicyclomine 10 mg capsule 10 mg PO ACHS Patient Comments: take 1 capsule by mouth four times a day before meals and at bedtime FOR ABDOMINAL PAIN. PT HAS NOT YET PICKED UP THE RX rosuvastatin 10 mg tablet 10 mg PO DAILY Patient Comments: take 1 tablet by mouth at bedtime insulin degludec [Tresiba FlexTouch U-100] 100 unit/mL (3 mL) insulin pen 86 unit SUBCUT QHS Patient Comments: INJECT 86 UNITS SUBCUTANEOUSLY DAILY AT BEDTIME levothyroxine 300 mcg tablet 300 mcg PO DAILY Patient Comments: TAKES IN EVENING potassium chloride 10 mEq tablet extended release 10 meq PO DAILY gabapentin 800 mg tablet 800 mg PO TID Patient Comments: PT STATES ONLY TAKES TWICE DAILY furosemide 40 mg tablet 40 mg PO BID Systane Ultra 0.4-0.3 % drops 1 drp ophthalmic (eye) 4X/DAY hydrocodone-acetaminophen 5-325 mg tablet 1 tab PO Q6H PRN (Reason: pain) insulin lispro [Humalog KwikPen Insulin] 100 unit/mL Insulin Pen 22 unit subcut TIDCM insulin lispro [Humalog KwikPen Insulin] 100 unit/mL insulin pen See Protocol subcut DAILY Protocol: 1. Sliding Scale Insulin Low Dosing Condition: 150-224 mg/dl = 1 unit Condition: 225-299 mg/dl = 2 units Condition: 300-374 mg/dl = 3 units Condition: 375-449 mg/dl = 4 units Condition: Greater than 449 call physician Protocol Text: Suggested for: - Patients on Total Daily Insulin Dose of 15-27 units - Thin, elderly, renal patients LOW DOSING ALGORITHM cholecalciferol (vitamin D3) 125 mcg (5,000 unit) capsule 125 mcg PO DAILY omeprazole 40 mg capsule,delayed release(DR/EC) 40 mg PO DAILY Trulicity 4.5 mg/0.5 mL pen injector 4.5 mg subcut QWEEK Discontinued meloxicam 15 mg tablet 15 mg PO DAILY PRN (Reason: Pain) Patient Comments: take 1 tablet by mouth once daily if needed for pain with food Jardiance 25 mg tablet 25 mg PO DAILY Referrals / Follow Up: Rebeka Rabago MD [Primary Care Provider, Internal Medicine] - Within 1 Week Disposition Disposition (needs filled in before D/C Order can be placed): Home, Self Care
--- NOTE | 2025-07-12 15:00 | PCM.DC.SUM ---
Providers Date of Admission: 07/09/25 Date of Discharge: 07/12/25 Primary Care Physician: Dr. Rebeka Rabago MD Reason For Visit: AECHF Diagnosis Discharge Diagnosis (1) 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re with preserved ejection fraction: Status: Acute Code(s): I50.33 - Acute on chronic diastolic (congestive) heart failure (2) Fluid overload: Status: Acute Code(s): E87.70 - Fluid overload, unspecified (3) Acute on chronic hypoxic respiratory failure: Status: Chronic Code(s): J96.21 - Acute and chronic respiratory failure with hypoxia Plan # Acute on chronic hypoxic respiratory failure suspect secondary to heart failure with preserved ejection fraction #Type 2 diabetes mellitus #Hypothyroidism # Normocytic anemia #GERD #Morbid obesity Medications at Discharge Home Medications estradiol 0.01% (0.1 mg/gram) vaginal cream 3 g vaginal .COMPLEX health maintenance 03/25/21 fenofibrate 160 mg tablet 160 mg PO DAILY cholesterol 03/25/21 vitamin E 268 mg (400 unit) capsule 400 unit PO DAILY supplement 03/25/21 dicyclomine 10 mg capsule 10 mg PO ACHS abdominal pain 07/06/21 insulin degludec 100 unit/mL (3 mL) subcutaneous pen (Tresiba FlexTouch U-100 insulin) 86 unit subcut QHS diabetes 07/06/21 rosuvastatin 10 mg tablet 10 mg PO DAILY cholesterol 07/06/21 cholecalciferol (vitamin D3) 125 mcg (5,000 unit) capsule 125 mcg PO DAILY SUPPLEMENT 05/03/24 omeprazole 40 mg capsule,delayed release 40 mg PO DAILY STOMACH 05/03/24 dulaglutide 4.5 mg/0.5 mL subcutaneous pen injector (Trulicity) 4.5 mg subcut QWEEK BLOOD SUGAR 10/27/24 furosemide 40 mg tablet 40 mg PO BID EDEMA 07/09/25 gabapentin 800 mg tablet 800 mg PO TID NEUROPATHY 07/09/25 hydrocodone-acetaminophen 5-325mg 5mg-325mg 1 tab PO Q6H PRN pain 07/09/25 insulin lispro 100 unit/mL subcutaneous pen (Humalog KwikPen (U-100) Insulin) 22 unit subcut TIDCM DIABETES 07/09/25 insulin lispro 100 unit/mL subcutaneous pen (Humalog KwikPen (U-100) Insulin) See Protocol subcut DAILY DIABETES 07/09/25 levothyroxine 300 mcg tablet 300 mcg PO DAILY THYROID 07/09/25 peg 400-propylene glycol 0.4 %-0.3 % eye drops (Systane Ultra) 1 drp ophthalmic (eye) 4X/DAY DRY EYE 07/09/25 potassium chloride 10 mEq tablet,extended release 10 meq PO DAILY POTASSIUM 07/09/25 Hospital Course Procedures Transthoracic echo Summary of Care Provided Minutes Spent on Discharge: 34 Hospital Course: 59-year-old female with a history of hypothyroidism, type 2 diabetes, chronic hypoxic respiratory failure on 2 L nasal cannula, GERD who presented [facility] ED 07/10/2025 from her pulmonary office due to increased shortness of breath on exertion and weight gain. She has reportedly gained 13 pounds since last week when may have missed a few doses of her Lasix. She had a CT scan earlier today reportedly which showed fluid in her lungs and pulmonology sent her to the ED from the office for further evaluation. In the ED patient had pitting edema, noted weight gain and dyspnea on exertion and was hypoxic to 84% on nasal cannula. Chest x-ray showed cardiomegaly and vascular congestion with interstitial edema, BNP only noted to be 237 however unclear significance given patient's entire picture highly suggestive of fluid overload. Patient given 40 of IV Lasix and hospitalist contacted for admission. Patient clinically improved with IV diuresis, patient was able to ambulate with improved symptoms, she was switched to p.o. diuretics and did tolerate these with no decompensation overnight, suspect her heart failure exacerbation was secondary to noncompliance given initial reported missing doses of Lasix, lack of fluid restriction, as well as hypothyroidism as TSH still 14 and on discussion patient taking Synthroid at night/suboptimally. Patient stable on home dose of Lasix with fluid restriction and Synthroid in the a.m., feel it is reasonable to discharge home on home regimen with education on fluid restriction, importance of taking her medications and taking Synthroid in the a.m. Discussed Synthroid instructions (as below) with patient she verbalized understanding, stressed fluid restriction and compliance of Lasix and patient verbalized understanding. At this point breathing is improving and suspect patient remaining in the hospital will lead to increased weakness and decreased functional status. Discussed with patient discharge versus continued hospitalization given the above concerns and the fact that she is tolerating oral Lasix and she agrees with discharge home. Discharge instructions as follows: -Would recommend lab work (BMP) to check your kidney function in 2 to 3 days through your primary care physician's office. Please call their office upon discharge to obtain order for lab work. -Resume your Lasix 40 mg once in the morning and once in the afternoon, it is very important that you take these medications on time -Weigh yourself every day. A sudden weight gain can mean you are retaining fluid. Weigh yourself at the same time of day and in the same kind of clothes. Ideally, weigh yourself first thing in the morning after you empty your bladder, but before you eat breakfast. -Please call your physician if your weight goes up by more than 2 pounds in 1 day or 5 pounds in 1 week. This can be a sign that you are retaining more fluid than you should be. Clues to weight gain include checking your ankles for swelling, or noticing you are short of breath when you lie down -Please limit your sodium intake to less than 3 g/day. And your fluid intake to less than 1800 mL a day Here are tips: Limit canned, dried, packaged, and fast foods. Don't add salt to your food at the table. Season foods with herbs instead of salt when you cook. When you eat out, ask that the chef saucier not add any salt to your dish. Don't eat fried or greasy foods. Be careful of bottled beverages. They can contain a lot of salt -Call 911 right away if you have: -Severe shortness of breath, such that you can't catch your breath even while resting -Severe chest pain that does not resolve with rest or nitroglycerin -[place], foamy mucus with cough and shortness of breath -An ongoing rapid or irregular heartbeat -Passing out or fainting -Stroke symptoms such as sudden numbness or weakness on one side of your face, arm, or leg or sudden confusion, trouble speaking or vision changes -Take levothyroxine on an empty stomach with 1 cup of water (250ml) at least four hours after eating. Then wait minutes before consuming any other food or beverage, especially coffee. This medicine will work best if you take it about at the same time every day. Separate levothyroxine from vitamins and antacids or medicines with calcium or iron by at least 4 hours before and after taking this medicine. Stop taking any biotin supplement 4 days prior to having labs drawn. It is important you keep taking each dose of this medicine on time even if you are feeling well. If you forget to take a dose on time, take in as soon as you remember unless it is almost time for the next dose and return to your normal schedule. Do not take two doses at one time - Would advise you discontinue meloxicam as this can be hard on the kidneys - Jardiance was taken off your medication list as it was indicated they are not taking this -Please call your primary care provider's office upon discharge to schedule a hospital follow up within 1 week. -For any concerning signs or symptoms please call 911 or proceed to the nearest emergency department Physical Exam Narrative General: Alert, no apparent distress HEENT: Atraumatic, normocephalic Eyes: Anicteric, normal conjunctiva, extraocular movements grossly intact Neck: Supple Respiratory: Normal respiratory effort without wheezes or rhonchi Cardiovascular: Regular rate and rhythm GI: Soft, nontender, nondistended Extremities: Bilateral lower extremity edema, mild degree of pitting Musculoskeletal: Moving all extremities Neuro: No overt focal neurological deficits Skin: No rashes appreciated Psych: Cooperative Weight / BMI Weight Weight: 117.9 kg Body Mass Index (BMI) 44.6 ABG / Lab / Microbiology Data 07/12/25 05:35 07/12/25 05:35 Laboratory: Laboratory Results - last 24 hr 07/11/25 16:22: POC Glucose 201 H 07/11/25 21:00: POC Glucose 177 H 07/12/25 05:35: WBC 5.2, RBC 3.68 L, Hgb 10.4 L, Hct 33.4 L, MCV 90.8, MCH 28.3, MCHC 31.1 L, RDW Std Deviation 50.3 H, RDW Coeff of [place] 15.1 H, Plt Count 135 L, MPV 11.3, Sodium 141, Potassium 4.1, Chloride 101, Carbon Dioxide 29.9, Anion Gap 10, BUN 36 H, Creatinine 1.56 H, Estim Creat Clear Calc 49.03 L, Est GFR (MDRD) Non-Af 38 L, BUN/Creatinine Ratio 22.9 H, Glucose 162 H, Calcium 9.1 07/12/25 08:40: POC Glucose 124 H 07/12/25 11:28: POC Glucose 151 H D/C Instructions DC O2, CPAP, BIPAP Needs Home O2 Discharge instructions: Yes Type of respiratory needs?: Oxygen (2) Oxygen frequency: Continuous Continuous oxygen liters per minute: 2 DC home with Oxygen: Yes Home O2 MD Review: I have reviewed the oxygen testing, and the patient qualifies for home oxygen equipment and portability. The patient is mobile in the home and the community. Meaningful Use Info Meaningful Use Meaningful Use Diagnoses (Choose all that apply): CHF CHF ENID/ARB ordered at discharge?: No Reason ENID/ARB not ordered?: Worsening renal disease Documented LVEF (%): 55 Discharge Plan Admission Admit Date/Time: 07/09/25 18:29 Primary Reason for Your Visit: Shortness of breath Attending Provider: Asya Hernandez Primary Care Provider: Rebeka Rabago Consulting Providers: Tavo Nielson Instructions Patient Instructions: Heart Failure Make Changes Diet, Heart Failure Dc Additional Instructions / Restrictions: DISCHARGE INSTRUCTIONS PLEASE READ *Please take this with you to your next doctors appointment* -Would recommend lab work (BMP) to check your kidney function in 2 to 3 days through your primary care physician's office. Please call their office upon discharge to obtain order for lab work. -Resume your Lasix 40 mg once in the morning and once in the afternoon, it is very important that you take these medications on time -Weigh yourself every day. A sudden weight gain can mean you are retaining fluid. Weigh yourself at the same time of day and in the same kind of clothes. Ideally, weigh yourself first thing in the morning after you empty your bladder, but before you eat breakfast. -Please call your physician if your weight goes up by more than 2 pounds in 1 day or 5 pounds in 1 week. This can be a sign that you are retaining more fluid than you should be. Clues to weight gain include checking your ankles for swelling, or noticing you are short of breath when you lie down -Please limit your sodium intake to less than 3 g/day. And your fluid intake to less than 1800 mL a day Here are tips: Limit canned, dried, packaged, and fast foods. Don't add salt to your food at the table. Season foods with herbs instead of salt when you cook. When you eat out, ask that the chef saucier not add any salt to your dish. Don't eat fried or greasy foods. Be careful of bottled beverages. They can contain a lot of salt -Call 911 right away if you have: -Severe shortness of breath, such that you can't catch your breath even while resting -Severe chest pain that does not resolve with rest or nitroglycerin -[place], foamy mucus with cough and shortness of breath -An ongoing rapid or irregular heartbeat -Passing out or fainting -Stroke symptoms such as sudden numbness or weakness on one side of your face, arm, or leg or sudden confusion, trouble speaking or vision changes -Take levothyroxine on an empty stomach with 1 cup of water (250ml) at least four hours after eating. Then wait minutes before consuming any other food or beverage, especially coffee. This medicine will work best if you take it about at the same time every day. Separate levothyroxine from vitamins and antacids or medicines with calcium or iron by at least 4 hours before and after taking this medicine. Stop taking any biotin supplement 4 days prior to having labs drawn. It is important you keep taking each dose of this medicine on time even if you are feeling well. If you forget to take a dose on time, take in as soon as you remember unless it is almost time for the next dose and return to your normal schedule. Do not take two doses at one time - Would advise you discontinue meloxicam as this can be hard on the kidneys - Jardiance was taken off your medication list as it was indicated they are not taking this -Please call your primary care provider's office upon discharge to schedule a hospital follow up within 1 week. -For any concerning signs or symptoms please call 911 or proceed to the nearest emergency department Discharge Orders/Prescriptions Prescriptions: Continued estradiol 0.01 % (0.1 mg/gram) cream 3 g VAGINAL .COMPLEX Patient Comments: insert 3 grams vaginally two times a week PT HAS NOT BEEN USING LATELY. Rx Instructions: 3 grams vaginally 2 TIMES PER WEEK; fenofibrate 160 mg tablet 160 mg PO DAILY Patient Comments: take 1 tablet by mouth once daily vitamin E 400 unit Capsule 400 unit PO DAILY dicyclomine 10 mg capsule 10 mg PO ACHS Patient Comments: take 1 capsule by mouth four times a day before meals and at bedtime FOR ABDOMINAL PAIN. PT HAS NOT YET PICKED UP THE RX rosuvastatin 10 mg tablet 10 mg PO DAILY Patient Comments: take 1 tablet by mouth at bedtime insulin degludec [Tresiba FlexTouch U-100] 100 unit/mL (3 mL) insulin pen 86 unit SUBCUT QHS Patient Comments: INJECT 86 UNITS SUBCUTANEOUSLY DAILY AT BEDTIME levothyroxine 300 mcg tablet 300 mcg PO DAILY Patient Comments: TAKES IN EVENING potassium chloride 10 mEq tablet extended release 10 meq PO DAILY gabapentin 800 mg tablet 800 mg PO TID Patient Comments: PT STATES ONLY TAKES TWICE DAILY furosemide 40 mg tablet 40 mg PO BID Systane Ultra 0.4-0.3 % drops 1 drp ophthalmic (eye) 4X/DAY hydrocodone-acetaminophen 5-325 mg tablet 1 tab PO Q6H PRN (Reason: pain) insulin lispro [Humalog KwikPen Insulin] 100 unit/mL Insulin Pen 22 unit subcut TIDCM insulin lispro [Humalog KwikPen Insulin] 100 unit/mL insulin pen See Protocol subcut DAILY Protocol: 1. Sliding Scale Insulin Low Dosing Condition: 150-224 mg/dl = 1 unit Condition: 225-299 mg/dl = 2 units Condition: 300-374 mg/dl = 3 units Condition: 375-449 mg/dl = 4 units Condition: Greater than 449 call physician Protocol Text: Suggested for: - Patients on Total Daily Insulin Dose of 15-27 units - Thin, elderly, renal patients LOW DOSING ALGORITHM cholecalciferol (vitamin D3) 125 mcg (5,000 unit) capsule 125 mcg PO DAILY omeprazole 40 mg capsule,delayed release(DR/EC) 40 mg PO DAILY Trulicity 4.5 mg/0.5 mL pen injector 4.5 mg subcut QWEEK Discontinued meloxicam 15 mg tablet 15 mg PO DAILY PRN (Reason: Pain) Patient Comments: take 1 tablet by mouth once daily if needed for pain with food Jardiance 25 mg tablet 25 mg PO DAILY Referrals / Follow Up: Rebeka Rabago MD [Primary Care Provider, Internal Medicine] - Within 1 Week Disposition Disposition (needs filled in before D/C Order can be placed): Home, Self Care Charges/Coding Visit Charges Inpatient E&M: 75541 Disch Hosp >30min
--- NOTE | 2025-07-12 15:01 | CASEMGMT ---
Patient has order for discharge. Patient requires increase in home oxygen, script received. RN CM sent updated script to [facility] via [employer]. RN CM in to discuss discharge needs with patient. Patient has portable tank for at home. Patient denies further needs or help at discharge. Patient had no further questions or concerns.
--- NOTE | 2025-07-12 15:06 | PHA.DC.MR.R ---
Pharmacy IN Med Reconciliation Pharmacy Service has performed discharge medication reconciliation for this patient. The patient's discharge medication list was reviewed for discrepancies and discrepancies were resolved. Medications at Discharge Home Medications estradiol 0.01% (0.1 mg/gram) vaginal cream 3 g vaginal .COMPLEX health maintenance 03/25/21 fenofibrate 160 mg tablet 160 mg PO DAILY cholesterol 03/25/21 vitamin E 268 mg (400 unit) capsule 400 unit PO DAILY supplement 03/25/21 dicyclomine 10 mg capsule 10 mg PO ACHS abdominal pain 07/06/21 insulin degludec 100 unit/mL (3 mL) subcutaneous pen (Tresiba FlexTouch U-100 insulin) 86 unit subcut QHS diabetes 07/06/21 rosuvastatin 10 mg tablet 10 mg PO DAILY cholesterol 07/06/21 cholecalciferol (vitamin D3) 125 mcg (5,000 unit) capsule 125 mcg PO DAILY SUPPLEMENT 05/03/24 omeprazole 40 mg capsule,delayed release 40 mg PO DAILY STOMACH 05/03/24 dulaglutide 4.5 mg/0.5 mL subcutaneous pen injector (Trulicity) 4.5 mg subcut QWEEK BLOOD SUGAR 10/27/24 furosemide 40 mg tablet 40 mg PO BID EDEMA 07/09/25 gabapentin 800 mg tablet 800 mg PO TID NEUROPATHY 07/09/25 hydrocodone-acetaminophen 5-325mg 5mg-325mg 1 tab PO Q6H PRN pain 07/09/25 insulin lispro 100 unit/mL subcutaneous pen (Humalog KwikPen (U-100) Insulin) 22 unit subcut TIDCM DIABETES 07/09/25 insulin lispro 100 unit/mL subcutaneous pen (Humalog KwikPen (U-100) Insulin) See Protocol subcut DAILY DIABETES 07/09/25 levothyroxine 300 mcg tablet 300 mcg PO DAILY THYROID 07/09/25 peg 400-propylene glycol 0.4 %-0.3 % eye drops (Systane Ultra) 1 drp ophthalmic (eye) 4X/DAY DRY EYE 07/09/25 potassium chloride 10 mEq tablet,extended release 10 meq PO DAILY POTASSIUM 07/09/25
--- NOTE | 2025-07-12 18:30 | NURSING ---
Pt given discharge instructions including medications, follow up appointments and all other discharge instructions. telemetry removed and placed at nurses station. IV removed with catheter intact, clean dry dressing applied, pt tolerated well. pt denies any further questions or needs at this time. pt getting dresses and will call when her brother is here to pick her up.
== END 2025-07-12 18:28 | disposition home or self-care (01) | DRG 194 ==
LOC: ED 18:22 → PCU 18:35
PROVIDERS: Emergency Provider Emergency Medicine; PCP Internal Medicine; Visit Provider Internal Medicine
DX: I11.0 Hypertensive heart disease with heart failure (principal); J96.11 Chronic respiratory failure with hypoxia; Z99.81 Dependence on supplemental oxygen; E11.40 Type 2 diabetes mellitus with diabetic neuropathy, unspecified; I50.33 Acute on chronic diastolic (congestive) heart failure; E66.813 Obesity, class 3; E03.9 Hypothyroidism, unspecified; E78.00 Pure hypercholesterolemia, unspecified; K21.9 Gastro-esophageal reflux disease without esophagitis; Z68.42 Body mass index [BMI] 45.0-49.9, adult; Z79.4 Long term (current) use of insulin; T50.1X6A Underdosing of loop [high-ceiling] diuretics, initial encounter; Z91.148 Patient's other noncompliance with medication regimen for other reason; Z79.84 Long term (current) use of oral hypoglycemic drugs; Z79.85 Long-term (current) use of injectable non-insulin antidiabetic drugs; Z79.890 Hormone replacement therapy; Z79.899 Other long term (current) drug therapy; Z87.891 Personal history of nicotine dependence
CPT/HCPCS: 36415; 71046; 80048; 82962; 83036; 83880; 84443; 85025; 85027; 93005; 93306; 97162; 97166; 97802; 99285; Q9957; A4216; J1938

== ENCOUNTER 2025-08-01 11:29 | Inpatient (IN) | payer MEDICAID, SELFPAY ==
[2025-08-01] VITALS (9 sets, daily range): BP systolic 122–171; BP diastolic 61–107; PULSE 59–77; RESP 16–24; TEMP 36.2–37.2; O2SAT 95–100; BMI 47.0; BMI 46.3
--- NOTE | 2025-08-01 11:59 | EKG12_ITS ---
Test Reason : SOB
--- NOTE | 2025-08-01 12:00 | ED.VIS.DYS ---
HPI History of Present Illness Chief Complaint: Shortness of Breath Detail of Chief Complaint: Dyspnea, weakness, difficulty ambulating Informant: patient Narrative Narrative: Patient presents to the emergency department with multiple complaints today. She complains of generalized weakness. She complains of swelling over her entire body. She complains of a hoarse voice. She denies fevers or chills or sweats. Patient states that she was admitted for similar presentation to the hospital earlier this month. She complains of some abdominal pain. She denies dysuria. She denies chest pain. She normally wears home O2 2 L due to damage from COVID to her lungs 4 years ago. [facility] Medical History COVID History of hypothyroidism Type 2 diabetes mellitus treated with insulin Chronic respiratory failure with hypoxia Pericardial effusion Thrombocytopenia Anemia Elevated lipase Urinary retention Obesity Former tobacco use UTI (urinary tract infection) Kidney stones Migraines Hypothyroid Hypercholesteremia Hypertension Type 2 diabetes mellitus Home Medications ?Medication ?Instructions ?Recorded ?Last Taken ?Type estradiol 0.01% (0.1 mg/gram) 3 g vaginal .COMPLEX health 03/25/21 Unknown History vaginal cream maintenance fenofibrate 160 mg tablet 160 mg PO DAILY cholesterol 03/25/21 07/09/25 History vitamin E 268 mg (400 unit) capsule 400 unit PO DAILY supplement 03/25/21 07/09/25 History dicyclomine 10 mg capsule 10 mg PO ACHS abdominal pain 07/06/21 Unknown History insulin degludec 100 unit/mL (3 86 unit subcut QHS diabetes 07/06/21 07/08/25 History mL) subcutaneous pen (Tresiba FlexTouch U-100 insulin) rosuvastatin 10 mg tablet 10 mg PO DAILY cholesterol 07/06/21 07/08/25 History cholecalciferol (vitamin D3) 125 125 mcg PO DAILY SUPPLEMENT 05/03/24 07/09/25 History mcg (5,000 unit) capsule omeprazole 40 mg capsule,delayed 40 mg PO DAILY STOMACH 05/03/24 07/09/25 History release dulaglutide 4.5 mg/0.5 mL 4.5 mg subcut QWEEK BLOOD SUGAR 10/27/24 07/08/25 History subcutaneous pen injector (Trulicity) furosemide 40 mg tablet 40 mg PO BID EDEMA 07/09/25 07/08/25 History gabapentin 800 mg tablet 800 mg PO TID NEUROPATHY 07/09/25 07/09/25 History hydrocodone-acetaminophen 5-325mg 1 tab PO Q6H PRN pain 07/09/25 07/04/25 History 5mg-325mg insulin lispro 100 unit/mL 22 unit subcut TIDCM DIABETES 07/09/25 07/08/25 History subcutaneous pen (Humalog KwikPen (U-100) Insulin) insulin lispro 100 unit/mL See Protocol subcut DAILY DIABETES 07/09/25 07/08/25 History subcutaneous pen (Humalog KwikPen (U-100) Insulin) levothyroxine 300 mcg tablet 300 mcg PO DAILY THYROID 07/09/25 07/08/25 History peg 400-propylene glycol 0.4 %-0.3 1 drp ophthalmic (eye) 4X/DAY DRY 07/09/25 07/07/25 History % eye drops (Systane Ultra) EYE potassium chloride 10 mEq 10 meq PO DAILY POTASSIUM 07/09/25 07/09/25 History tablet,extended release Allergy/AdvReac Type Severity Reaction Status Date / Time metformin AdvReac Diarrhea Verified 08/01/25 11:32 oxycodone (From Percocet) AdvReac upset Verified 08/01/25 11:32 stomach/off balance Family History Mother Diabetes Father Diabetes Surgical History Previous section History of appendectomy Social History household members: none Smoking Status: Former smoker how long ago did patient quit smoking: Quit cigarette tobacco in 2015, 1 ppd since teenager until quit. alcohol intake: never substance use type: does not use ROS ROS ED Review of Systems ROS Unobtainable: other Constitutional Constitutional ED: Reports lethargy; Denies chills, fever(s), sweats or weight loss Eyes Eyes: Denies blurry vision, change in vision or diplopia ENT ENT ED: Denies rhinorrhea or sore throat Cardiovascular Cardiovascular: Denies chest pain, orthopnea or racing heartbeat Respiratory/Chest Respiratory/Chest: Reports dyspnea and dyspnea on exertion; Denies cough, orthopnea or sputum Gastrointestinal Gastrointestinal: Reports abdominal pain; Denies diarrhea, nausea or vomiting Genitourinary Genitourinary ED: Denies dysuria, hematuria or urinary frequency Musculoskeletal Musculoskeletal: Reports other Details: Edema to trunk and legs ; Denies arthralgias, back pain, myalgias or neck pain Integumentary Denies abscess, Abrasions or rash Neurologic Neurologic: Denies headache(s) or weakness Psychiatric Psychiatric: Denies anxiety, depression or suicidal thoughts Endocrine Endocrinology: Denies polydipsia, polyphagia or polyuria Hematologic/Lymphatic Hematologic/Lymphatic: Denies easy bleeding, easy bruising or lymphadenopathy Allergic/Immunologic Allergic/Immunologic ED: Denies mouth swelling, tongue swelling or urticaria EXAM Physical Exam Const Vital Signs: 08/01/25 11:29 08/01/25 11:32 08/01/25 13:10 Temperature 97.8 F 97.8 F Temperature Source Oral Oral Pulse Rate 61 61 Respiratory Rate 18 18 Respiratory Effort Normal Respiratory Depth Normal Respiratory Pattern Normal Blood Pressure 169/75 H 169/75 H Blood Pressure Mean 106 106 Pulse Ox 98 98 Oxygen Delivery Method Room Air Room Air Oxygen Flow Rate (L/min) 08/01/25 13:29 08/01/25 15:00 Temperature Temperature Source Pulse Rate 59 L 60 Respiratory Rate 20 H Respiratory Effort Respiratory Depth Respiratory Pattern Blood Pressure 157/107 H 122/75 H Blood Pressure Mean 123 90 Pulse Ox 100 100 Oxygen Delivery Method Nasal Cannula Room Air Oxygen Flow Rate (L/min) 2 Positive well nourished and well developed General Appearance ED: well developed and NAD HEENT Reports TM's clear and moist mucous membranes normocephalic and atraumatic; Negative for trauma or tenderness Tympanic Membrane ED: Yes TM's clear Eyes PERRL and EOMs intact bilaterally General Eye ED: Negative for pale conjunctiva or scleral icterus Neck no lymphadenopathy, supple and no JVD General: Negative for tenderness Chest Wall inspection of chest normal and palpation of chest normal Chest: Negative for tenderness Resp normal respiratory effort and clear to auscultation bilaterally Effort and Inspection: Negative for respiratory distress or pain with movement Auscultation: Negative for rhonchi, wheezes or diminished lung sounds Cardio regular rate, regular rhythm, S1 normal heart sound, S2 normal heart sound and no murmurs Peripheral Pulses: pulses 2+ throughout GI normal to inspection, nondistended, normoactive bowel sounds, soft to palpation, non-distended and no masses GI Narrative: Patient morbidly obese. Mild diffuse tenderness to the abdomen. No rebound, rigidity, or peritoneal signs. No mass palpated Back/Spine no CVA tenderness and no thoracic nor lumbar tenderness Extremity normal to inspection Extremity Narrative: +2 edema both lower extremities. General Extremety ED: Yes edema General Extremity: edema Neuro oriented x3, CN's II-XII intact bilaterally, no sensory deficits noted and gait normal Sensorium / Orientation: awake, alert, oriented to person, oriented to place and oriented to time Motor Exam: strength 5/5 throughout and strength abnormal Psych mental status grossly normal Skin no rashes or lesions noted and no wounds MDM MDM MDM Narrative Medical decision making narrative: Patient presents with dyspnea and edema and generalized weakness. History of CHF with recent admission. Denies fever or significant cough. She denies chest pain. In the differential be CHF versus acute coronary syndrome. Less likely PE. Patient also has history of chronic lung disease related to COVID infection and chronically wears 2 L nasal cannula O2. CBC with differential obtained showed a white count of 3.1 with hemoglobin of 11.3 and platelet count of 110. Chemistries unremarkable. BUN was 34 and creatinine 1.34. Lactate less than 1. LFTs essentially unremarkable. Troponin was 41 and delta 2-hour troponin was 40. Do not feel she is having acute coronary syndrome. 1 view chest x-ray obtained showed some central pulmonary congestion with cardiomegaly. Urinalysis ordered although she is not complaining of dysuria or urgency or frequency. I did order Lasix 80 mg IV. I ambulated the patient in the department with her in 2 L nasal cannula O2 she dropped to 88% on room air. Patient's BT [employer]W [employer]ORER was 88. Will discuss with hospitalist to evaluate for admission. She also had a CT scan of the abdomen pelvis performed because she was complaining of some abdominal pain and this did not show any acute intra-abdominal process however was noted she had a pericardial effusion and small pleural effusions. Patient also had liver with nodular margin consistent with cirrhosis. Spleen was enlarged at 16 cm. Lab Data Attestation: I reviewed the patient's lab results. Labs: Laboratory Results - last 24 hr 08/01/25 08/01/25 08/01/25 12:37 14:46 15:06 WBC 3.1 L RBC 3.94 L Hgb 11.3 L Hct 36.1 L MCV 91.6 MCH 28.7 MCHC 31.3 L RDW Std Deviation 51.8 H RDW Coeff of Catina 15.5 H Plt Count 110 L MPV 11.2 Immature Gran % (Auto) 0.300 Neut % (Auto) 59.9 Lymph % (Auto) 22.1 [place] % (Auto) 10.3 H Eos % (Auto) 7.1 H Baso % (Auto) 0.3 Absolute Neuts (auto) 1.9 L Absolute Lymphs (auto) 0.69 L Nucleated RBC % 0 Sodium 144 Potassium 4.7 Chloride 109 H Carbon Dioxide 27.0 Anion Gap 8 BUN 34 H Creatinine 1.34 H Est GFR (MDRD) Non-Af 46 L BUN/Creatinine Ratio 25.0 H Glucose 116 H Lactic Acid < 1.0 Calcium 8.8 Total Bilirubin 0.21 AST 42 H ALT 29 Alkaline Phosphatase 99 Troponin T High Sens 41 H Troponin T Hi Sens 2 Hr 40 H NT pro BNP II 88 Total Protein 6.4 Albumin 3.1 L Globulin 3.3 Albumin/Globulin Ratio 0.9 Urine Color Straw Urine Clarity Sl. Cloudy Urine pH 6.5 Ur Specific [place] 1.010 Urine Protein Negative Urine Glucose (UA) Normal Urine Ketones Negative Urine Occult Blood 10 H Urine Nitrite Negative Urine Bilirubin Negative Urine Urobilinogen Normal Ur Leukocyte Esterase 25 H Radiography Diagnostic Testing: Clinical Impression(s) from Imaging Studies Chest X-Ray 08/01/25 12:55 IMPRESSION: Central congestion, mild edema. Reading Location: [facility] Abdomen/Pelvis CT 08/01/25 12:58 IMPRESSION: There is a 2.5 cm pericardial effusion. There is a 2.2 cm right pleural effusion. There is a 0.6 cm left pleural effusion. Liver has a nodular margin consistent with cirrhosis. Spleen is enlarged at 16 cm. [facility] chest x-ray obtained interpreted by myself as cardiomegaly with vascular congestion. EKG Initial EKG: Attestation: I personally reviewed and interpreted this EKG as follows: Comments: Sinus rhythm with rate of 62 bpm with first-degree AV block Discharge Plan Dx/Rx/DC Orders Clinical Impression: Dyspnea, Weakness, CHF (congestive heart failure) Disposition Disposition: Acute Care Hospital [facility]
[2025-08-01 12:53] LABS: Hematocrit 36.1 % (37-47); Hemoglobin 11.3 g/dL (12.0-15.0); Immature Granulocytes Count 0.010 X10^3/uL (0.0-0.0); Mean Corp Hgb Conc 31.3 g/dL (32-36); Mean Corpuscular Volume 91.6 fL (81-99); Mean Platelet Vol. 11.2 fl (6.2-12.0); NRBC Flagged by Analyzer 0 % (0-5); Platelet Count 110 K/mm3 (150-450); RBC Distribution Width CV 15.5 % (11.6-14.6); RBC Distribution Width SD 51.8 fl (35.1-43.9); Red Blood Count 3.94 M/mm3 (4.2-5.4); White Blood Count 3.1 K/mm3 (4.4-11.0)
--- NOTE | 2025-08-01 12:55 | RAD_ITS ---
PROCEDURE: RAD/Chest 1 View (Portable)
--- NOTE | 2025-08-01 12:58 | CT_ITS ---
PROCEDURE: CT/Abdomen/Pelvis without Cont
[2025-08-01 13:28] LABS: Troponin T High Sensitivity 41 ng/L (<=14)
[2025-08-01 13:29] LABS: Pro- Brain NATRIURETIC PEPTIDE 88 pg/mL (<=900)
[2025-08-01 13:31] LABS: AST(SGOT) 42 U/L (<=31); Alanine Aminotransfer ALT/SGPT 29 U/L (<=34); Albumin, Serum 3.1 g/dL (3.5-5.0); Alkaline Phosphatase 99 U/L (35-104); Anion Gap 8 (5-15); BUN 34 mg/dL (4-19); BUN/Creat Ratio 25.0 RATIO (10-20); Calcium,Total 8.8 mg/dL (7.6-11.0); Carbon Dioxide 27.0 mmol/L (21.0-32.0); Chloride 109 mmol/L (98-108); Globulin 3.3 g/dL (2.2-4.2); Glucose 116 mg/dL (70-99); Potassium 4.7 mmol/L (3.3-5.1)
[2025-08-01 15:12] LABS: Mucous, Urine 0 SEEN /hpf (<or=2+)
[2025-08-01 15:24] LABS: Troponin T High Sens 2 HR 40 ng/L (<=14)
[2025-08-01 15:45] LABS: Color, Urine Straw (Yellow); Glucose, Dipstick Normal (Normal); Ketone-Dipstick Negative (Negative); Leukocyte Esterase-Dipstick 25 /ul (Negative); Nitrite-Dipstick Negative (Negative); Occult Blood-Urine 10 /ul (Negative); Protein-Dipstick Negative (Negative); Specific Gravity, Urine 1.010 (1.002-1.030); Urine Bilirubin Dipstick Negative (Negative)
--- NOTE | 2025-08-01 16:11 | ECHOL_ITS ---
Reason For Study ECHO/Echo, Limited Study
[2025-08-01 16:33] LABS: Red Blood Cells-Urine 0-5 SEEN /hpf (0-5); Squamous Epithelial Cells - UA 0-5 SEEN /hpf (5-10)
--- NOTE | 2025-08-01 16:59 | PCM.HP.STD ---
HPI - General General Date of Admission: 08/01/25 Date of Service: 08/01/25 Chief Complaint: Weakness and lower extremity swelling HPI Narrative BETTY AGARWAL, is a 59 F who presented to [facility] ED on 08/01/2025 with worsening weakness and lower extremity swelling. Patient was recently hospitalized here from 07/09-07/12 for acute on chronic hypoxic respiratory failure suspected secondary to an acute HFpEF exacerbation. Was suspected the exacerbation was due to intermittent nonadherence to home Lasix, lack of fluid restriction and hypothyroidism with TSH 14 as patient was taking Synthroid at night. She did diurese well during hospitalization and was able to be discharged on her home 2 L nasal cannula. She returned today for worsening generalized weakness, worsening swelling in her legs and all over as well as a hoarse voice. In the ED she was hypertensive to the 160s systolic, was otherwise stable on home 2 L nasal cannula at rest. Chest x-ray showed central pulmonary congestion with no pleural effusions. BNP normal. However, TSH 56 with free T4 0.60. Given her worsening weakness and volume overload secondary to severe hypothyroidism, hospitalist was contacted for admission. I saw the patient at bedside in the ED. Patient was fatigued appearing but otherwise sitting back comfortably in bed and in no acute distress. She notably was having an echo done as her CT chest called a 2.5 cm pericardial effusion. She notably did have an echo done on 07/10 that showed a less than 1 cm pericardial effusion and she had no evidence of tamponade on admission, so she was okay for admission with echo result pending. She reiterated her concerns above to me. Will be admitted for further management. [facility] Medical History COVID History of hypothyroidism Type 2 diabetes mellitus treated with insulin Chronic respiratory failure with hypoxia Pericardial effusion Thrombocytopenia Anemia Elevated lipase Urinary retention Obesity Former tobacco use UTI (urinary tract infection) Kidney stones Migraines Hypothyroid Hypercholesteremia Hypertension Type 2 diabetes mellitus Home Medications ?Medication ?Instructions ?Recorded ?Last Taken ?Type estradiol 0.01% (0.1 mg/gram) 3 g vaginal .COMPLEX health 03/25/21 Unknown History vaginal cream maintenance fenofibrate 160 mg tablet 160 mg PO DAILY cholesterol 03/25/21 07/09/25 History vitamin E 268 mg (400 unit) capsule 400 unit PO DAILY supplement 03/25/21 07/09/25 History dicyclomine 10 mg capsule 10 mg PO ACHS abdominal pain 07/06/21 Unknown History insulin degludec 100 unit/mL (3 86 unit subcut QHS diabetes 07/06/21 07/08/25 History mL) subcutaneous pen (Tresiba FlexTouch U-100 insulin) rosuvastatin 10 mg tablet 10 mg PO DAILY cholesterol 07/06/21 07/08/25 History cholecalciferol (vitamin D3) 125 125 mcg PO DAILY SUPPLEMENT 05/03/24 07/09/25 History mcg (5,000 unit) capsule omeprazole 40 mg capsule,delayed 40 mg PO DAILY STOMACH 05/03/24 07/09/25 History release dulaglutide 4.5 mg/0.5 mL 4.5 mg subcut QWEEK BLOOD SUGAR 10/27/24 07/08/25 History subcutaneous pen injector (Trulicity) furosemide 40 mg tablet 40 mg PO BID EDEMA 07/09/25 07/08/25 History gabapentin 800 mg tablet 800 mg PO TID NEUROPATHY 07/09/25 07/09/25 History hydrocodone-acetaminophen 5-325mg 1 tab PO Q6H PRN pain 07/09/25 07/04/25 History 5mg-325mg insulin lispro 100 unit/mL 22 unit subcut TIDCM DIABETES 07/09/25 07/08/25 History subcutaneous pen (Humalog KwikPen (U-100) Insulin) insulin lispro 100 unit/mL See Protocol subcut DAILY DIABETES 07/09/25 07/08/25 History subcutaneous pen (Humalog KwikPen (U-100) Insulin) levothyroxine 300 mcg tablet 300 mcg PO DAILY THYROID 07/09/25 07/08/25 History peg 400-propylene glycol 0.4 %-0.3 1 drp ophthalmic (eye) 4X/DAY DRY 07/09/25 07/07/25 History % eye drops (Systane Ultra) EYE potassium chloride 10 mEq 10 meq PO DAILY POTASSIUM 07/09/25 07/09/25 History tablet,extended release meloxicam 15 mg tablet 15 mg PO DAILY PRN pain 08/01/25 Unknown History Allergy/AdvReac Type Severity Reaction Status Date / Time metformin AdvReac Diarrhea Verified 08/01/25 11:32 oxycodone (From Percocet) AdvReac upset Verified 08/01/25 11:32 stomach/off balance Family History Mother Diabetes Father Diabetes Surgical History Previous section History of appendectomy Social History household members: none Smoking Status: Former smoker how long ago did patient quit smoking: Quit cigarette tobacco in 2014, 1 ppd since teenager until quit. alcohol intake: never substance use type: does not use ROS Constitutional Constitutional: Reports fatigue and weakness; Denies chills or fever(s) Eyes Eyes: Denies change in vision Cardiovascular Cardiovascular: Reports dyspnea on exertion and edema; Denies chest pain, lightheadedness, orthopnea or palpitations Respiratory/Chest Respiratory/Chest: Reports shortness of breath at rest; Denies cough or wheezing Gastrointestinal Gastrointestinal: Reports constipation; Denies abdominal pain or diarrhea Genitourinary Genitourinary: Denies dysuria Musculoskeletal Musculoskeletal: Denies arthralgias or myalgias Neurologic Neurologic: Denies dizziness, focal weakness, headache(s), numbness or tingling Vital Signs Vital Signs Vital Signs: 08/01/25 11:29 08/01/25 11:32 08/01/25 13:10 Temperature 97.8 F 97.8 F Temperature Source Oral Oral Pulse Rate 61 61 Respiratory Rate 18 18 Respiratory Effort Normal Respiratory Depth Normal Respiratory Pattern Normal Blood Pressure 169/75 H 169/75 H Blood Pressure Mean 106 106 Pulse Ox 98 98 Oxygen Delivery Method Room Air Room Air Oxygen Flow Rate (L/min) 08/01/25 13:29 08/01/25 15:00 Temperature Temperature Source Pulse Rate 59 L 60 Respiratory Rate 20 H Respiratory Effort Respiratory Depth Respiratory Pattern Blood Pressure 157/107 H 122/75 H Blood Pressure Mean 123 90 Pulse Ox 100 100 Oxygen Delivery Method Nasal Cannula Room Air Oxygen Flow Rate (L/min) 2 Physical Exam Const alert, oriented x3 and no apparent distress Constitutional Narrative: Upper middle-aged female, appears older than stated age, class III obesity, fatigued and mildly lethargic appearing, otherwise sitting back comfortably in bed, answering questions appropriately, in no acute distress. General Appearance: cooperative and comfortable Orientation / Consciousness: lethargic HEENT normocephalic, head/scalp atraumatic, hearing grossly normal bilaterally, nasal mucous membranes and turbinates normal and moist oral mucous membranes Eyes PERRL, EOMs intact bilaterally and conjunctivae normal Neck full ROM Chest inspection of chest normal Resp normal respiratory effort and no use of accessory muscles Resp Narrative: Breathing comfortably on 2 L nasal cannula at rest. Mild crackles noted in mid lung zones bilaterally, otherwise good air movement throughout with no wheezing noted. Cardio regular rate, regular rhythm, no murmurs and peripheral pulses 2+ throughout GI normal to inspection, nondistended, normoactive bowel sounds, soft to palpation, non-tender and non-distended Back/Spine normal ROM Extremity Extremity Narrative: +3-4 lower extremity pitting edema noted bilaterally. Skin no rashes or lesions noted Psych mental status grossly normal Mood & Affect: depressed Results Lab / Micro Data 08/01/25 12:37 08/01/25 12:37 Labs: Laboratory Results - last 24 hr 08/01/25 12:37: WBC 3.1 L, RBC 3.94 L, Hgb 11.3 L, Hct 36.1 L, MCV 91.6, MCH 28.7, MCHC 31.3 L, RDW Std Deviation 51.8 H, RDW Coeff of Catina 15.5 H, Plt Count 110 L, MPV 11.2, Immature Gran % (Auto) 0.300, Neut % (Auto) 59.9, Lymph % (Auto) 22.1, [place] % (Auto) 10.3 H, Eos % (Auto) 7.1 H, Baso % (Auto) 0.3, Absolute Neuts (auto) 1.9 L, Absolute Lymphs (auto) 0.69 L, Nucleated RBC % 0, Sodium 144, Potassium 4.7, Chloride 109 H, Carbon Dioxide 27.0, Anion Gap 8, BUN 34 H, Creatinine 1.34 H, Est GFR (MDRD) Non-Af 46 L, BUN/Creatinine Ratio 25.0 H, Glucose 116 H, Lactic Acid < 1.0, Calcium 8.8, Total Bilirubin 0.21, AST 42 H, ALT 29, Alkaline Phosphatase 99, Troponin T High Sens 41 H, NT pro BNP II 88, Total Protein 6.4, Albumin 3.1 L, Globulin 3.3, Albumin/Globulin Ratio 0.9 08/01/25 14:46: Troponin T Hi Sens 2 Hr 40 H 08/01/25 15:06: Urine Color Straw, Urine Clarity Sl. Cloudy, Urine pH 6.5, Ur Specific [place] 1.010, Urine Protein Negative, Urine Glucose (UA) Normal, Urine Ketones Negative, Urine Occult Blood 10 H, Urine Nitrite Negative, Urine Bilirubin Negative, Urine Urobilinogen Normal, Ur Leukocyte Esterase 25 H, Urine RBC 0-5 SEEN, Urine WBC 5-10 SEEN, Ur Squamous Epith Cells 0-5 SEEN, Urine Bacteria 0 SEEN, Hyaline Casts 0-5 SEEN, Urine Mucus 0 SEEN Imaging Radiology Impression Chest X-Ray 08/01/25 12:55 IMPRESSION: Central congestion, mild edema. Reading Location: [id number] Abdomen/Pelvis CT 08/01/25 12:58 IMPRESSION: There is a 2.5 cm pericardial effusion. There is a 2.2 cm right pleural effusion. There is a 0.6 cm left pleural effusion. Liver has a nodular margin consistent with cirrhosis. Spleen is enlarged at 16 cm. Reading Location: [facility] Assessment & Plan Assessment/Plan (1) Severe hypothyroidism: (2) Weakness: PLAN: Plan Patient is a 59-year-old female who presented to [facility] ED on 08/01/2025 with worsening weakness and lower extremity swelling. 1. Severe hypothyroidism ? Admit under inpatient status to PCU. TSH 56, free T4 0.60 on admit. Symptoms on admit was consistent with severe hypothyroidism. Patient mentating appropriately, no concern for myxedema coma. Presume secondary to taking Synthroid at night inappropriately; this notably was addressed with her during recent hospitalization at the beginning of this month. To expedite improvement, will give a dose of IV levothyroxine 200 mcg this evening and then restart home p.o. Synthroid 300 mcg tomorrow morning. Will give 3 doses of IV hydrocortisone and obtain a.m. cortisol level to evaluate for concurrent adrenal insufficiency. PT/OT/case management consulted for further evaluation for patient's generalized weakness. Should be medically ready for discharge in the next 1 to 2 days. 2. Pericardial effusion ? Known history of chronic small pericardial effusion. Recent echo in 07/10 showed less than 1 cm pericardial effusion with no evidence of tamponade. On CT abdomen pelvis on this admit, radiology called a 2.5 cm pericardial effusion. Hemodynamically stable in the ED, no clinical features of tamponade noted. Repeat limited echo completed in the ED, read pending. Follow-up tomorrow morning. 3. Chronic hypoxic respiratory failure ? Patient stable on home 2 L nasal cannula at rest on admit. Has chronically been on home oxygen since COVID infection about 4 years ago. Chest x-ray on admit showed mild pulmonary vascular congestion suspected due to hypothyroidism above. Give 1 dose of IV Lasix in the ED, okay to continue home p.o. Lasix as below. Chronic medical conditions: ? Class III obesity: BMI 46 on admit. Complicates hospital course and care. ? Type 2 diabetes mellitus with neuropathy: Glucose 116 on admit. Last A1c 8.5% on 07/10. Will treat with reduced doses of Lantus 30 units at night and Humalog 10 units with meals plus sliding scale for now, adjust as needed. Continue home gabapentin. ? Chronic HFpEF, hyperlipidemia: Recent echo on 07/09 showed EF 55%, mild concentric LV hypertrophy, no other concerning findings. Volume overload on admit strongly suspect secondary to hypothyroidism as above. Continue home Lasix, statin and fenofibrate. ? Chronic pain syndrome: OARRS reviewed. Continue home hydrocodone?acetaminophen every 6 hours as needed. ? GERD: Continue home PPI. ? Chronic normocytic anemia: Hemoglobin 11.3 on admit, stable at baseline. ? CKD stage IIIb: Creatinine 1.3 on admit, stable at baseline. DVT prophylaxis: Heparin subcu CODE STATUS: Full code, verified Expected disposition: TBD Total clinical time spent by myself addressing the patient's medical issues, reviewing all the data, and collaborating with patient's care team: 83 minutes. Charges/Coding Visit Charges Inpatient E&M: 61894 Init Hosp L3
[2025-08-01 17:10] LABS: Troponin T High Sens 4 HR 38 ng/L (<=14)
[2025-08-01] MEDS: 0.9% Saline Lock 10 ML Syringe IV ×2 (19:52→23:34)
[2025-08-01] MEDS: Glycerin/Hypromellose/PEG400 15 ml Bottle 1 DRP OPHTHALMIC (21:19)
[2025-08-01] MEDS: Insulin Glargine-YFGN 100 UNIT/ML Pen 30 UNIT SC (21:22)
[2025-08-01] MEDS: Heparin Injection (Vial) 5,000 UNIT/ML VIAL 5000 UNIT SC (21:26)
[2025-08-01] MEDS: LEVOTHYROXINE SODIUM 100 MCG VIAL 200 MCG IV (23:35)
[2025-08-01] MEDS: MELATONIN 3 MG TABLET PO (23:41)
[2025-08-02 03:27] VITALS: BP 134/73; PULSE 64; RESP 18; TEMP 36.7; O2SAT 94
[2025-08-02 05:46] LABS: Hematocrit 35.7 % (37-47); Hemoglobin 10.9 g/dL (12.0-15.0); Mean Corp Hgb Conc 30.5 g/dL (32-36); Mean Corpuscular Volume 91.8 fL (81-99); Mean Platelet Vol. 11.8 fl (6.2-12.0); Platelet Count 138 K/mm3 (150-450); RBC Distribution Width CV 15.9 % (11.6-14.6); RBC Distribution Width SD 52.6 fl (35.1-43.9); Red Blood Count 3.89 M/mm3 (4.2-5.4); White Blood Count 4.5 K/mm3 (4.4-11.0)
[2025-08-02 06:00] VITALS: BMI 46.2
[2025-08-02] MEDS: Heparin Injection (Vial) 5,000 UNIT/ML VIAL 5000 UNIT SC ×3 (06:08→22:22)
[2025-08-02 06:26] LABS: Anion Gap 8 (5-15); BUN 33 mg/dL (4-19); BUN/Creat Ratio 23.5 RATIO (10-20); Calcium,Total 8.9 mg/dL (7.6-11.0); Carbon Dioxide 27.7 mmol/L (21.0-32.0); Chloride 108 mmol/L (98-108); Estimated Creatinine Clearance 55.51 ml/min (50-250); Glucose 135 mg/dL (70-99); Potassium 4.7 mmol/L (3.3-5.1)
[2025-08-02 06:31] LABS: CORTISOL AM 16.80 ug/dL (6.02-18.40)
[2025-08-02 08:55] VITALS: BP 117/63; PULSE 64; RESP 14; TEMP 36.4; O2SAT 96
[2025-08-02] MEDS: Glycerin/Hypromellose/PEG400 15 ml Bottle 1 DRP OPHTHALMIC ×4 (09:03→22:24)
[2025-08-02] MEDS: Cholecalciferol (Vit D3) 125 MCG CAPSULE (5,000 UNITS) PO (09:04)
[2025-08-02 11:00] VITALS: O2SAT 95
--- NOTE | 2025-08-02 13:14 | CHAPLAIN ---
Type of Pastoral Visit _x__ Initial Visit ___ Follow-up Visit ___ On-call Visit ___ General Patient Visit ___ Spiritual Assessment ___ Family Conference ___ Bereavement ___ Rapid Response ___ Code Blue ___ Other (describe below) Pastoral Care Referral From _x__ Patient ___ Family ___ Nurse ___ Physician ___ Loan Consultant ___ Electronics Tester ___ Other (describe below) Sacrament/Intervention _x__ Active listening ___ Anointing ___ Episcopalian ___ Bereavement ___ Communion ___ Vicky exploration ___ _x__ Life review _x__ Prayer ___ Reconciliation ___ Sacrament of Sick _x__ Supportive presence ___ Wedding ___ Other (describe below) Pastoral Comments 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
[2025-08-02 14:34] VITALS: BP 131/59; PULSE 66; RESP 16; TEMP 36.3; O2SAT 98
--- NOTE | 2025-08-02 16:30 | CASEMGMT ---
RN DIANA NOTE: Discussed palliative care w/pt and she is interested in a referral. Order received from Dr Mock for same. Brittany GARCIAN RN CM
[2025-08-02] MEDS: Ensure Plus High Protein 120 ML LIQUID PO (16:58)
--- NOTE | 2025-08-02 19:24 | PN.HOSP_ITS ---
Reason for Visit
--- NOTE | 2025-08-02 19:24 | PCM.PN.HOSP ---
Reason for Visit Chief Complaint: Weakness and lower extremity swelling Subjective Subjective Patient was seen and examined today, her echocardiogram showed increased pericardial effusion, patient also has a decreased ejection fraction. I talked informally with cardiology today (Dr. Barraza) and he stated that he felt that the hypothyroidism was causing most of the patient's issues. Case management told me that they talked with the patient and she is not taking her medications as prescribed. I called her pharmacy and she has not refilled her Synthroid, it is overdue for refill by about 20 days. Objective Data Objective Data Vital Signs: Vital Signs Temp Pulse Resp BP Pulse Ox O2 Del Method O2 Flow Rate 97.4 F L 66 16 131/59 H 98 Nasal Cannula 2 08/02/25 14:34 08/02/25 14:34 08/02/25 14:34 08/02/25 14:34 08/02/25 14:34 08/02/25 14:36 08/02/25 14:36 Oxygen Flow Rate (L/min) 2 Oxygen Delivery Method Nasal Cannula Weight: 122.1 kg Body Mass Index (BMI) 46.2 Intake & Output: Intake and Output for Last 24 Hours 07/31/25 08/01/25 08/02/25 23:59 23:59 23:59 Intake Total 240 / 240 Output Total 1000 / 1000 Balance 240 / 240 -1000 / -1000 Lab / Micro Data 08/02/25 04:51 08/02/25 04:51 Labs: Laboratory Results - last 24 hr 08/01/25 21:18: POC Glucose 117 H 08/02/25 04:51: WBC 4.5, RBC 3.89 L, Hgb 10.9 L, Hct 35.7 L, MCV 91.8, MCH 28.0, MCHC 30.5 L, RDW Std Deviation 52.6 H, RDW Coeff of Catina 15.9 H, Plt Count 138 L, MPV 11.8, Sodium 144, Potassium 4.7, Chloride 108, Carbon Dioxide 27.7, Anion Gap 8, BUN 33 H, Creatinine 1.41 H, Estim Creat Clear Calc 55.51, Est GFR (MDRD) Non-Af 43 L, BUN/Creatinine Ratio 23.5 H, Glucose 135 H, Calcium 8.9, Cortisol AM Sample 16.80 08/02/25 05:52: POC Glucose 143 H 08/02/25 11:51: POC Glucose 148 H 08/02/25 16:53: POC Glucose 189 H Radiography Diagnostic Testing: Radiology Impression Echocardiogram 08/01/25 16:11 Interpretation Summary Posterior and inferior hypokinesis. Estimated LVEF 40-45%. At least stage I diastolic dysfunction. Moderate pericardial effusion. Compared to previous study on 07/10/2025, the pericardial effusion appears to be mildly increased. The study was technically difficult. Ordering Physician: Tayler Leach Referring Physician: Rebeka Rabago Performed By: Asiya Kramer, PABLOCS, RVT Physical Exam Const alert, oriented x3 and no apparent distress Constitutional Narrative: Patient has class III obesity General Appearance: cooperative, well kempt and well developed Orientation / Consciousness: awake, oriented to person, oriented to place and oriented to time HEENT normocephalic and moist oral mucous membranes Eyes PERRL, EOMs intact bilaterally and conjunctivae normal Neck supple, no JVD and thyroid normal General: trachea midline Resp normal respiratory effort, no retractions and no use of accessory muscles Resp Narrative: Inspiratory rales are noted at the bases bilaterally Auscultation: rales bilateral base; Negative for rhonchi or wheezes Cardio regular rate, regular rhythm, S1 normal heart sound, S2 normal heart sound, no murmurs, no rub and no gallops GI normal to inspection, nondistended, normoactive bowel sounds, soft to palpation, non-tender and non-distended Extremity no clubbing, cyanosis or edema Skin no rashes or lesions noted General Skin Exam: no breakdown Neuro oriented x3, CN's II-XII intact bilaterally, moves all extremities, no focal motor deficits and no sensory deficits noted Sensorium / Orientation: awake and alert Speech: speech normal Psych Psych Narrative: Patient has flat affect Assessment & Plan Assessment/Plan (1) Severe hypothyroidism: PLAN: Plan 1. Hypothyroidism secondary to noncompliance with outpatient thyroid replacement-patient will receive Synthroid here, it is somewhat problematic to prevent this from happening as the patient seems to be noncompliant with medications. Case management is working on additional resources to help the patient stay compliant on her medications #2 moderate pericardial effusion-patient shows no sign of tamponade, she is hemodynamically stable, it appears that she has had a chronic pericardial effusion. No treatment at this time. #3 chronic hypoxic respiratory failure-patient is on supplemental oxygen at this time, pulse ox will be monitored #4 class III obesity-complicates care, management, recovery, and prognosis #5 type 2 diabetes-is unknown whether the patient has a working glucose monitor at home, case management will discuss this with her, patient blood sugars will be monitored, sliding scale insulin will be administered as indicated. #6 acute on chronic congestive heart failure with reduced ejection fraction-patient's echocardiogram showed an EF of 40%, patient will be maintained on oral Lasix at this time, she is on minimal nasal cannula oxygen. #7 cardiomyopathy-etiology unclear at this point, could be related to severe hypothyroidism, patient will need an outpatient echocardiogram in the near future to recheck her EF after she resumes her Synthroid Total clinical time spent by myself addressing the patient's medical issues, reviewing all of her data, and collaborating with the patient's care team: 35 minutes Charges/Coding Visit Charges Inpatient E&M: 93170 Subs Hosp L2
[2025-08-02] MEDS: 0.9% Saline Lock 10 ML Syringe IV (20:14)
[2025-08-02 22:19] VITALS: BP 132/79; PULSE 74; RESP 17; TEMP 35.9; O2SAT 99
[2025-08-02] MEDS: MELATONIN 3 MG TABLET PO (22:21)
[2025-08-02] MEDS: Insulin Glargine-YFGN 100 UNIT/ML Pen 30 UNIT SC (22:22)
[2025-08-03 04:06] VITALS: BP 111/53; PULSE 67; RESP 18; TEMP 36.4; O2SAT 97
[2025-08-03 04:58] VITALS: BMI 46.8
[2025-08-03] MEDS: Heparin Injection (Vial) 5,000 UNIT/ML VIAL 5000 UNIT SC ×2 (06:53→14:51)
--- NOTE | 2025-08-03 08:35 | PCM.CONS.P ---
[facility] Medical History Swelling of both lower extremities Dyspnea on exertion COVID History of hypothyroidism Type 2 diabetes mellitus treated with insulin Chronic respiratory failure with hypoxia Pericardial effusion Thrombocytopenia Anemia Elevated lipase Urinary retention Obesity Former tobacco use UTI (urinary tract infection) Kidney stones Migraines Hypothyroid Hypercholesteremia Hypertension Type 2 diabetes mellitus Home Medications ?Medication ?Instructions ?Recorded ?Last Taken ?Type estradiol 0.01% (0.1 mg/gram) 3 g vaginal .COMPLEX health 03/25/21 Unknown History vaginal cream maintenance fenofibrate 160 mg tablet 160 mg PO DAILY cholesterol 03/25/21 07/09/25 History vitamin E 268 mg (400 unit) capsule 400 unit PO DAILY supplement 03/25/21 07/09/25 History dicyclomine 10 mg capsule 10 mg PO ACHS abdominal pain 07/06/21 Unknown History insulin degludec 100 unit/mL (3 86 unit subcut QHS diabetes 07/06/21 07/08/25 History mL) subcutaneous pen (Tresiba FlexTouch U-100 insulin) rosuvastatin 10 mg tablet 10 mg PO DAILY cholesterol 07/06/21 07/08/25 History cholecalciferol (vitamin D3) 125 125 mcg PO DAILY SUPPLEMENT 05/03/24 07/09/25 History mcg (5,000 unit) capsule omeprazole 40 mg capsule,delayed 40 mg PO DAILY STOMACH 05/03/24 07/09/25 History release dulaglutide 4.5 mg/0.5 mL 4.5 mg subcut QWEEK BLOOD SUGAR 10/27/24 07/08/25 History subcutaneous pen injector (Trulicity) furosemide 40 mg tablet 40 mg PO BID EDEMA 07/09/25 07/08/25 History gabapentin 800 mg tablet 800 mg PO TID NEUROPATHY 07/09/25 07/09/25 History hydrocodone-acetaminophen 5-325mg 1 tab PO Q6H PRN pain 07/09/25 07/04/25 History 5mg-325mg insulin lispro 100 unit/mL 22 unit subcut TIDCM DIABETES 07/09/25 07/08/25 History subcutaneous pen (Humalog KwikPen (U-100) Insulin) insulin lispro 100 unit/mL See Protocol subcut DAILY DIABETES 07/09/25 07/08/25 History subcutaneous pen (Humalog KwikPen (U-100) Insulin) levothyroxine 300 mcg tablet 300 mcg PO DAILY THYROID 07/09/25 07/08/25 History peg 400-propylene glycol 0.4 %-0.3 1 drp ophthalmic (eye) 4X/DAY DRY 07/09/25 07/07/25 History % eye drops (Systane Ultra) EYE potassium chloride 10 mEq 10 meq PO DAILY POTASSIUM 07/09/25 07/09/25 History tablet,extended release meloxicam 15 mg tablet 15 mg PO DAILY PRN pain 08/01/25 Unknown History Allergy/AdvReac Type Severity Reaction Status Date / Time metformin AdvReac Diarrhea Verified 08/01/25 11:32 oxycodone (From Percocet) AdvReac upset Verified 08/01/25 11:32 stomach/off balance Family History Mother Diabetes Father Diabetes Surgical History Previous section History of appendectomy Social History household members: none Smoking Status: Former smoker how long ago did patient quit smoking: Quit cigarette tobacco in 2014, 1 ppd since teenager until quit. alcohol intake: never substance use type: does not use ROS Constitutional Constitutional: Reports as per HPI and weakness Eyes Eyes: Reports systems reviewed and no addt'l complaints, except as documented ENT HEENT: Reports systems reviewed and no addt'l complaints, except as documented Cardiovascular Cardiovascular: Reports dyspnea, dyspnea at rest and leg edema Respiratory/Chest Respiratory/Chest: Reports wheezing Gastrointestinal Gastrointestinal: Reports as per HPI Genitourinary Genitourinary: Reports as per HPI Musculoskeletal Musculoskeletal: Reports as per HPI Integumentary Integumentary: Reports as per HPI Neurologic Neurologic: Reports systems reviewed and no addt'l complaints, except as documented Psychiatric Psychiatric: Reports systems reviewed and no addt'l complaints, except as documented Endocrine Endocrinology: Reports other Details: Severe hypothyroid Hematologic/Lymphatic Hematologic/Lymphatic: Reports systems reviewed and no addt'l complaints, except as documented Allergic/Immunologic Allergic/Immunologic: Reports systems reviewed and no addt'l complaints, except as documented Physical Exam Const alert and oriented x3 General Appearance: cooperative HEENT normocephalic Eyes PERRL Lymph Lymphatic: lymphedema Resp Auscultation: wheezes and diminished lung sounds Cardio regular rate GI normal to inspection, nondistended, normoactive bowel sounds Extremity normal capillary refill Skin no rashes or lesions noted Neuro CN's II-XII intact bilaterally Speech: speech normal Gait (Neuro): unable to assess gait Psych affect normal Charges/Coding Palliative Care Palliative Care: 01962 New Pt Consult 80+ min HPI Current admission Current Code Status: full code Associated Diagnosis: HFrEF Consult Data Date of Consult: 08/03/25 Location of consult: PCU Reason for referral: goals of care Referral source: Palliative care diagnosis (Summary list): HFrEF Palliative care services/treatment (Accepted, as consult): accepted Case discussed with referring provider: pt request for palliative care out patient HPI Narrative HPI Narrative: PAIN ASSESSMENT denies Prior to meeting with the patient at bedside I reviewed labs and radiological studies. I also reviewed documentation from this visit and previous visits. I then met with the patient, Mari at bedside. I introduced myself and the concept of palliative care in which she voluntarily excepted our services. They presented with worsening weakness and extremity and abdominal swelling. She had just been hospitalized from 07 09-07 12 for acute on chronic respiratory failure. This is most likely related to CHF. They does endorse that she did not take her medications as she was supposed to when she went home. She does have severe hypothyroidism with this visit her TSH was 56.800 and her T4 was 0.60. I did ask today if she had difficulty getting her medications but she stated that she has it now. On previous admission on 07/10/2025 they did have an echocardiogram which showed her to have an EF of 55%. She did have another echocardiogram at this admission which shows she has an EF of 40 to 45% and worsening posterior/inferior hypokinesis. She is also found to have some moderate increases in her pericardial effusions. Mari does state that she sometimes forgets to take her medications. I then had an extensive discussion with Mari about goals of care going forward in which she states that she wants to continue aggressive medical management. I did discuss the possibility of her utilizing palliative care on an outpatient basis is which she is open to. I did give her a list of agencies that could accommodate her and [facility] choice. I did reach out to social work/case management to update them about patient's desire to have [facility] for an outpatient palliative care service. They is on chronic nasal cannula at 2 L. During my assessment I noted her to be short of breath. Respiratory did come in and noted that she had taken out her oxygen while she was eating and her oxygen saturations were in the 60s. We did replace the oxygen and she did rebound within approximately 1 minute. They asked me if I would contact her brother to let him know what was going on in which I did make a phone call to her brother Franco I was unable to reach him and planned on leaving a message but his mailbox was full. All questions Tristian were answered. Palliative care will continue to follow for goals of care conversations as clinical picture evolves. Per hospitalist:BETTY AAGRWAL, is a 59 F who presented to [facility] ED on 08/01/2025 with worsening weakness and lower extremity swelling. Patient was recently hospitalized here from 07/09-07/12 for acute on chronic hypoxic respiratory failure suspected secondary to an acute HFpEF exacerbation. Was suspected the exacerbation was due to intermittent nonadherence to home Lasix, lack of fluid restriction and hypothyroidism with TSH 14 as patient was taking Synthroid at night. She did diurese well during hospitalization and was able to be discharged on her home 2 L nasal cannula. She returned today for worsening generalized weakness, worsening swelling in her legs and all over as well as a hoarse voice. In the ED she was hypertensive to the 160s systolic, was otherwise stable on home 2 L nasal cannula at rest. Chest x-ray showed central pulmonary congestion with no pleural effusions. BNP normal. However, TSH 56 with free T4 0.60. Given her worsening weakness and volume overload secondary to severe hypothyroidism, hospitalist was contacted for admission. I saw the patient at bedside in the ED. Patient was fatigued appearing but otherwise sitting back comfortably in bed and in no acute distress. She notably was having an echo done as her CT chest called a 2.5 cm pericardial effusion. She notably did have an echo done on 07/10 that showed a less than 1 cm pericardial effusion and she had no evidence of tamponade on admission, so she was okay for admission with echo result pending. She reiterated her concerns above to me. Will be admitted for further management. This note was generated with [employer] dictation software. It may contain incorrect words, spelling, and punctuation that were not noted in checking the note before signing. Palliative Assessment Advanced Directive - Current Admission Advance Directive: Advance Directive ON ADMISSION - REFERENCE Do you have a Healthcare Yes 08/01/25 18:23 Living Will? Is a Healthcare Living Will Yes, It is scanned in 08/01/25 18:23 present in the medical record? Do you have a Healthcare Power Yes 08/01/25 18:23 of [employer] Remover? Is a Healthcare Power of Yes, It is scanned in 08/01/25 18:23 [employer] Remover present in the medical rec Do You Want Additional Declined 08/01/25 18:23 Information on Advanced Directives or Healthcare Proxy/DPOA comments: Patient states her brother Psychosocial/Spiritual Information Living situation/Marital status: Single and her son lives with her Geographic location: [place] Supports: Family Worship/Vicky or spiritual preference: Patient denies no specific advent affiliation but is Zoroastrianism Spiritual distress: Denies Prior functional status: Patient is able to do her own ADLs Assistive devices at home: Walker and cane Cultrual issues: None Information about the patient as a person: Patient enjoys watching her shows on television, [employer] and 911 Symptoms Palliative performance scale: 40% Palliative prognostic index: 7.0 Dyspnea symptoms: Severe Constipation symptoms: None Nausea symptoms: None Vomiting symptoms: None Depression symptoms: None Anorexia symptoms: None Cough symptoms: Mild Insomnia symptoms: None Diarrhea symptoms: None Fatigue symptoms: Moderate Weakness symptoms: Moderate Confusion symptoms: None Objective Data Objective Data Vital Signs: Vital Signs Temp Pulse Resp BP Pulse Ox O2 Del Method O2 Flow Rate 97.6 F L 67 18 111/53 L 97 Nasal Cannula 2 08/03/25 04:06 08/03/25 04:06 08/03/25 04:06 08/03/25 04:06 08/03/25 04:06 08/03/25 04:08 08/03/25 04:08 Oxygen Flow Rate (L/min) 2 Oxygen Delivery Method Nasal Cannula Weight: 273 lb 2.444 oz Body Mass Index (BMI) 46.8 Intake & Output: Intake and Output for Last 24 Hours 08/01/25 08/02/25 08/03/25 23:59 23:59 23:59 Intake Total 240 / 240 Output Total 1000 / 1000 100 / 100 Balance 240 / 240 -1000 / -1000 -100 / -100 Lab / Micro Data Attestation: I reviewed the patient's lab results. Lab results narrative: Patient does have history of CKD. She currently has a BUN of 33 and a creatinine of 1.41. 08/02/25 04:51 08/02/25 04:51 Labs: Laboratory Results - last 24 hr 08/02/25 11:51: POC Glucose 148 H 08/02/25 16:53: POC Glucose 189 H 08/02/25 22:00: POC Glucose 221 H Radiography Diagnostic Testing: Radiology Impression Echocardiogram 08/01/25 16:11 Interpretation Summary Posterior and inferior hypokinesis. Estimated LVEF 40-45%. At least stage I diastolic dysfunction. Moderate pericardial effusion. Compared to previous study on 07/10/2025, the pericardial effusion appears to be mildly increased. The study was technically difficult. Ordering Physician: Tayler Leach Referring Physician: Rebeka Rabago Performed By: Asiya Kramer, LEDA, RVT Rhythm Strip Rhythm Strip: Sinus Rhythm Impressions & Recommendations Patient & Family Issues discussed with the patient and family: Patient had no family at bedside discussed goals of care Patient goal: Patient would like outpatient palliative care services does not feel ready for hospice. Family goal: No family at bedside Ethical & Legal Ethical and legal: None Impressions Impressions: Patient would benefit from palliative care outpatient services Recommentation Palliative recommendations: Recommend palliative care outpatient services. Patient would qualify for hospice if she chooses. Encouter Achieved as a result of this Palliative Care Encounter: [ [id number], [id number]] minutes were spent in total for this visit which consisted, primarily of counseling and education dealing with the complex and emotionally intense issues of symptom management and palliative care in the setting of serious and potentially life-threatening illness. Review of documentation, labs and radiological studies. ?Patient/family had the opportunity to ask questions Plan (1) Severe hypothyroidism: PLAN: Medical management per primary team (2) CHF (congestive heart failure): QUALIFIERS: Heart failure type: diastolic Heart failure chronicity: acute on chronic Qualified Code(s): I50.33 - Acute on chronic diastolic (congestive) heart failure PLAN: Medical management per primary team (3) Weakness: PLAN: Medical management per primary team (4) Dyspnea: QUALIFIERS: Dyspnea type: shortness of breath Qualified Code(s): R06.02 - Shortness of breath PLAN: Medical management per primary team (5) 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re with preserved ejection fraction: PLAN: Medical management per primary team (6) Acute on chronic hypoxic respiratory failure: PLAN: Medical management per primary team (7) Goals of care, counseling/discussion: PLAN: *Patient states that she wants to continue aggressive medical management *Reminded the patient the importance of taking her medication as prescribed to avoid multiple hospitalizations *Goals of care conversation (8) Palliative care encounter: PLAN: *Explained and educated the patient on the difference between hospice and palliative care *Patient has elected to transition to outpatient palliative care with [facility] *Referral placed to [facility]. (9) CHF exacerbation:
--- NOTE | 2025-08-03 08:47 | CASEMGMT ---
RN DIANA note: RN DIANA spoke w/Lachelle, supervisor volunteer services, re: further education needs re: nutrition and reading food labels. Brittany MARTINEZ RN CM
--- NOTE | 2025-08-03 09:24 | CASEMGMT ---
Discharge Planning A list of HH providers including quality and resource use data and consistent with the patient's preferred geographic region, medical needs, and insurance network was created in CarePort Guide.? This list was provided to the RN DIANA. Marizol Rueda, Discharge Planning Asst.
[2025-08-03 09:31] VITALS: O2SAT 64
[2025-08-03 09:32] VITALS: O2SAT 90
--- NOTE | 2025-08-03 09:58 | CASEMGMT ---
Addendum entered by Eusebio Olmedo 08/03/25 14:39: Correction: Referral sent to [facility] via fax @ this time (not @ [phone]). Original Note: COLT ORTIZ NOTE: Per DANGELO Mccann for palliative, pt would like [facility]. Referral sent to [facility] via fax to: [phone]. Pt provided w/HHC list prepared by christian [employer] bookkeeper assistant. Pt's preferences are: [facility], [facility], and [facility]. hema [employer] bookkeeper assistant to send referrals. Brittany MARTINEZ RN CM
[2025-08-03 10:00] VITALS: BP 106/55; PULSE 68; RESP 16; TEMP 36.1; O2SAT 97
[2025-08-03] MEDS: Ensure Plus High Protein 120 ML LIQUID PO (10:03)
[2025-08-03] MEDS: Cholecalciferol (Vit D3) 125 MCG CAPSULE (5,000 UNITS) PO (10:04)
[2025-08-03] MEDS: Glycerin/Hypromellose/PEG400 15 ml Bottle 1 DRP OPHTHALMIC ×2 (10:05→14:51)
--- NOTE | 2025-08-03 10:35 | CPS ---
found pt on RA, pt says she takes her O2 off when she eats. Placed pt back on 2L NC at this time.
--- NOTE | 2025-08-03 11:00 | CASEMGMT ---
Addendum entered by Eusebio Olmedo 08/03/25 13:12: Pt made aware [facility] has accepted. Addendum entered by Marizol Rueda 08/03/25 11:39: [facility] has accepted. COLT CM updated. Marizol Rueda DC Planning Asst. Original Note: Discharge Planning HH referral sent via [facility]Port to [facility]. Marizol Rueda DC Planning Asst.
--- NOTE | 2025-08-03 13:52 | NS ---
RN DIANA Kaplan, called this RD regarding education for pt. RD saw this pt yesterday where she refused diet education. RD gave education to this patient during past admissions (07/10/25) - RD reports if pt understood education. RD provide pt with NCM low sodium medical therapy, plate method for diabetes, and heart healthy reading food labels. RD educated pt on reading food labels with the calories, serving sizes, carbohydrates, and sodium. Pt started looking at diet soda food label at bedside table. RD talked about carbs and sodium on food label. RD discussed plate method for diabetes handout. Talked about non-starchy vegetables, protein, and starchy vegetables. Pt asked RD about foods she likes to consume at home and RD provided nutrition education for each food. RD questions if pt understood education. RD contact information was provided.
[2025-08-03 14:40] VITALS: O2SAT 92; O2SAT 97
--- NOTE | 2025-08-03 15:53 | DCINST_ITS ---
Discharge Instructions
--- NOTE | 2025-08-03 15:53 | PCM.DC ---
Discharge Instructions DC O2, CPAP, BIPAP needs Home O2 Discharge instructions: Yes Type of respiratory needs?: Oxygen Oxygen frequency: Continuous Continuous oxygen liters per minute: 2 L Dressing / Incision Discharge Activity: Return to Normal Activity Weight Bearing Status: Full weight bearing Follow Up Care Test Results: Test results from this visit will be discussed in further detail at your follow-up appointment, if applicable. Discharge Plan Admission Admit Date/Time: 08/01/25 16:59 Primary Reason for Your Visit: Hypothyroidism, acute on chronic CHF Attending Provider: Familia Mock Primary Care Provider: Rebeka Rabago Consulting Providers: Franky Haque; Siobhan Cosme Discharge Orders/Prescriptions Prescriptions: New furosemide 40 mg Tablet 40 mg PO BIDLX Qty: 60 0RF levothyroxine 150 mcg Tablet 300 mcg PO DAILY@0600 Qty: 30 0RF potassium chloride [Klor-Con 10] 10 mEq tablet extended release 20 meq PO DAILY Qty: 60 0RF Continued estradiol 0.01 % (0.1 mg/gram) cream 3 g VAGINAL .COMPLEX Patient Comments: insert 3 grams vaginally two times a week PT HAS NOT BEEN USING LATELY. Rx Instructions: 3 grams vaginally 2 TIMES PER WEEK; fenofibrate 160 mg tablet 160 mg PO DAILY Patient Comments: take 1 tablet by mouth once daily dicyclomine 10 mg capsule 10 mg PO ACHS Patient Comments: take 1 capsule by mouth four times a day before meals and at bedtime FOR ABDOMINAL PAIN. PT HAS NOT YET PICKED UP THE RX rosuvastatin 10 mg tablet 10 mg PO DAILY Patient Comments: take 1 tablet by mouth at bedtime gabapentin 800 mg tablet 800 mg PO TID Systane Ultra 0.4-0.3 % drops 1 drp ophthalmic (eye) 4X/DAY hydrocodone-acetaminophen 5-325 mg tablet 1 tab PO Q6H PRN (Reason: pain) cholecalciferol (vitamin D3) 125 mcg (5,000 unit) capsule 125 mcg PO DAILY omeprazole 40 mg capsule,delayed release(DR/EC) 40 mg PO DAILY Trulicity 4.5 mg/0.5 mL pen injector 4.5 mg subcut QWEEK meloxicam 15 mg tablet 15 mg PO DAILY PRN (Reason: pain) Changed insulin lispro [Humalog KwikPen Insulin] 100 unit/mL Insulin Pen 10 unit subcut TIDCM Qty: 1 0RF insulin degludec [Tresiba FlexTouch U-100] 100 unit/mL (3 mL) insulin pen 35 unit SUBCUT QHS Qty: 1 0RF Patient Comments: INJECT 86 UNITS SUBCUTANEOUSLY DAILY AT BEDTIME Discontinued vitamin E 400 unit Capsule 400 unit PO DAILY levothyroxine 300 mcg tablet 300 mcg PO DAILY Patient Comments: TAKES IN EVENING potassium chloride 10 mEq tablet extended release 10 meq PO DAILY furosemide 40 mg tablet 40 mg PO BID insulin lispro [Humalog KwikPen Insulin] 100 unit/mL insulin pen See Protocol subcut DAILY Protocol: 1. Sliding Scale Insulin Low Dosing Condition: 150-224 mg/dl = 1 unit Condition: 225-299 mg/dl = 2 units Condition: 300-374 mg/dl = 3 units Condition: 375-449 mg/dl = 4 units Condition: Greater than 449 call physician Protocol Text: Suggested for: - Patients on Total Daily Insulin Dose of 15-27 units - Thin, elderly, renal patients LOW DOSING ALGORITHM Referrals / Follow Up: Rebeka Rabago MD [Primary Care Provider, Internal Medicine] - 08/09/25 2:40 pm Referral Note: Appt will be with Aftab Ely NP. Disposition Disposition (needs filled in before D/C Order can be placed): Home Health Service
--- NOTE | 2025-08-03 16:02 | PCM.DC.SUM ---
Providers Date of Admission: 08/01/25 Date of Discharge: 08/03/25 Primary Care Physician: Dr. Rebeka Rabago MD Consultations 08/03/25 08:06 Consult: Inpatient Palliative Care Routine Consulting Provider: Siobhan Cosme Reason for Consult: CHF, home O2 EMERGENT Consult: No MD Notified: Yes Date Notified: 08/02/25 Time Notified: 16:30 Method of Notification: Verbal Reason For Visit: CHF EXACERBATION Diagnosis Discharge Diagnosis (1) Severe hypothyroidism: Status: Acute Code(s): E03.9 - Hypothyroidism, unspecified (2) CHF (congestive heart failure): Status: Acute Code(s): I50.9 - Heart failure, unspecified Qualifiers: Heart failure chronicity: acute on chronic Heart failure type: diastolic Qualified Code(s): I50.33 - Acute on chronic diastolic (congestive) heart failure (3) Weakness: Status: Acute Code(s): R53.1 - Weakness (4) Dyspnea: Status: Acute Code(s): R06.00 - Dyspnea, unspecified Qualifiers: Dyspnea type: shortness of breath Qualified Code(s): R06.02 - Shortness of breath (5) 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re with preserved ejection fraction: Status: Acute Code(s): I50.33 - Acute on chronic diastolic (congestive) heart failure (6) Acute on chronic hypoxic respiratory failure: Status: Chronic Code(s): J96.21 - Acute and chronic respiratory failure with hypoxia (7) Goals of care, counseling/discussion: Status: Acute Code(s): Z71.89 - Other specified counseling (8) Palliative care encounter: Status: Acute Code(s): Z51.5 - Encounter for palliative care (9) CHF exacerbation: Status: Chronic Code(s): I50.9 - Heart failure, unspecified Plan 1. Hypothyroidism secondary to noncompliance with outpatient thyroid replacement-patient will receive Synthroid here, it is somewhat problematic to prevent this from happening as the patient seems to be noncompliant with medications. Case management is working on additional resources to help the patient stay compliant on her medications #2 moderate pericardial effusion-patient shows no sign of tamponade, she is hemodynamically stable, it appears that she has had a chronic pericardial effusion. No treatment at this time. #3 chronic hypoxic respiratory failure-patient is on supplemental oxygen at this time, pulse ox will be monitored #4 class III obesity-complicates care, management, recovery, and prognosis #5 type 2 diabetes-is unknown whether the patient has a working glucose monitor at home, case management will discuss this with her, patient blood sugars will be monitored, sliding scale insulin will be administered as indicated. #6 acute on chronic congestive heart failure with reduced ejection fraction-patient's echocardiogram showed an EF of 40%, patient will be maintained on oral Lasix at this time, she is on minimal nasal cannula oxygen. #7 cardiomyopathy-etiology unclear at this point, could be related to severe hypothyroidism, patient will need an outpatient echocardiogram in the near future to recheck her EF after she resumes her Synthroid Total clinical time spent by myself addressing the patient's medical issues, reviewing all of her data, and collaborating with the patient's care team: 35 minutes Medications at Discharge Home Medications estradiol 0.01% (0.1 mg/gram) vaginal cream 3 g vaginal .COMPLEX health maintenance 03/25/21 fenofibrate 160 mg tablet 160 mg PO DAILY cholesterol 03/25/21 dicyclomine 10 mg capsule 10 mg PO ACHS abdominal pain 07/06/21 rosuvastatin 10 mg tablet 10 mg PO DAILY cholesterol 07/06/21 cholecalciferol (vitamin D3) 125 mcg (5,000 unit) capsule 125 mcg PO DAILY SUPPLEMENT 05/03/24 omeprazole 40 mg capsule,delayed release 40 mg PO DAILY STOMACH 05/03/24 dulaglutide 4.5 mg/0.5 mL subcutaneous pen injector (Trulicity) 4.5 mg subcut QWEEK BLOOD SUGAR 10/27/24 gabapentin 800 mg tablet 800 mg PO TID NEUROPATHY 07/09/25 hydrocodone-acetaminophen 5-325mg 5mg-325mg 1 tab PO Q6H PRN pain 07/09/25 peg 400-propylene glycol 0.4 %-0.3 % eye drops (Systane Ultra) 1 drp ophthalmic (eye) 4X/DAY DRY EYE 07/09/25 meloxicam 15 mg tablet 15 mg PO DAILY PRN pain 08/01/25 furosemide 40 mg tablet 40 mg PO BIDLX #60 tabs 08/03/25 insulin degludec 100 unit/mL (3 mL) subcutaneous pen (Tresiba FlexTouch U-100 insulin) 35 unit (0.35 mL) subcut QHS diabetes #1 mL 08/03/25 insulin lispro 100 unit/mL subcutaneous pen (Humalog KwikPen (U-100) Insulin) 10 unit (0.1 mL) subcut TIDCM DIABETES #1 mL 08/03/25 levothyroxine 150 mcg tablet 300 mcg (2 x 150 mcg) PO DAILY@0600 #30 tabs 08/03/25 potassium chloride 10 mEq tablet,extended release (Klor-Con) 20 meq (2 x 10 mEq) PO DAILY #60 tabs 08/03/25 Hospital Course Operations None Procedures 2-D Echocardiogram Summary of Care Provided Minutes Spent on Discharge: 32 Hospital Course: This 59-year-old white female was seen in the emergency room at [facility] with chief complaint of dyspnea, weakness, and difficulty ambulating. It was noted that the patient had poor compliance with her medications at home. Patient does wear home oxygen due to damage to her lungs from COVID approximately 4 years prior. Workup in the emergency room included thyroid testing which showed a TSH of 56 and a free T4 of 0.6, chest x-ray showed an enlarged cardiac silhouette and mild pulmonary vascular congestion. Patient was admitted to PCU for severe hypothyroidism, she required supplemental oxygen at 2 L at rest which was her home oxygen setting. Patient was given thyroid replacement and underwent an echocardiogram which showed a moderate pericardial effusion-this appeared to be chronic in nature. Patient was seen by PT and OT. Echocardiogram was obtained which showed a decreased ejection fraction as compared with her previous echocardiogram, I talked informally with cardiology and they felt that her hypothyroidism could be the cause of her decreased ejection fraction. On 08/03/2025, patient was seen and examined: On examination she appeared in good health and spirits, she does not appear to be in any distress. Vital signs as documented. Skin warm and dry and without overt rashes. Neck without JVD, thyroid appears normal, trachea is midline, neck is supple. Lungs clear, normal air movement was noted. Heart exam notable for regular rhythm, normal sounds and absence of murmurs, rubs or gallops. Abdomen unremarkable and without evidence of organomegaly, masses, or abdominal aortic enlargement, bowel sounds are present in all 4 quadrants, no abdominal tenderness was noted. Extremities nonedematous, no cyanosis was noted, no clubbing was noted. Neuro: Cranial nerves II through XII are grossly intact, no focal motor deficits were noted, sensation to light touch and pinprick is intact, motor exam 5/5 throughout. Psych: Patient is alert and oriented x3, she does not appear anxious or depressed, she does not appear agitated. Patient was discharged home in stable condition on 08/03/2025. Weight / BMI Weight Weight: 123.9 kg Body Mass Index (BMI) 46.8 ABG / Lab / Microbiology Data 08/02/25 04:51 08/02/25 04:51 Laboratory: Laboratory Results - last 24 hr 08/03/25 16:34: POC Glucose 174 H D/C Instructions Weight Bearing Status: Full weight bearing DC O2, CPAP, BIPAP Needs Home O2 Discharge instructions: Yes Type of respiratory needs?: Oxygen Oxygen frequency: Continuous Continuous oxygen liters per minute: 2 L DC home with Oxygen: Yes Home O2 MD Review: I have reviewed the oxygen testing, and the patient qualifies for home oxygen equipment and portability. The patient is mobile in the home and the community. Meaningful Use Info Meaningful Use Meaningful Use Diagnoses (Choose all that apply): None applicable Discharge Plan Admission Admit Date/Time: 08/01/25 16:59 Primary Reason for Your Visit: Hypothyroidism, acute on chronic CHF Attending Provider: Familia Mock Primary Care Provider: Rebeka Rabago Consulting Providers: Franky Haque; Siobhan Cosme Discharge Orders/Prescriptions Prescriptions: New furosemide 40 mg Tablet 40 mg PO BIDLX Qty: 60 0RF levothyroxine 150 mcg Tablet 300 mcg PO DAILY@0600 Qty: 30 0RF potassium chloride [Klor-Con 10] 10 mEq tablet extended release 20 meq PO DAILY Qty: 60 0RF Continued estradiol 0.01 % (0.1 mg/gram) cream 3 g VAGINAL .COMPLEX Patient Comments: insert 3 grams vaginally two times a week PT HAS NOT BEEN USING LATELY. Rx Instructions: 3 grams vaginally 2 TIMES PER WEEK; fenofibrate 160 mg tablet 160 mg PO DAILY Patient Comments: take 1 tablet by mouth once daily dicyclomine 10 mg capsule 10 mg PO ACHS Patient Comments: take 1 capsule by mouth four times a day before meals and at bedtime FOR ABDOMINAL PAIN. PT HAS NOT YET PICKED UP THE RX rosuvastatin 10 mg tablet 10 mg PO DAILY Patient Comments: take 1 tablet by mouth at bedtime gabapentin 800 mg tablet 800 mg PO TID Systane Ultra 0.4-0.3 % drops 1 drp ophthalmic (eye) 4X/DAY hydrocodone-acetaminophen 5-325 mg tablet 1 tab PO Q6H PRN (Reason: pain) cholecalciferol (vitamin D3) 125 mcg (5,000 unit) capsule 125 mcg PO DAILY omeprazole 40 mg capsule,delayed release(DR/EC) 40 mg PO DAILY Trulicity 4.5 mg/0.5 mL pen injector 4.5 mg subcut QWEEK meloxicam 15 mg tablet 15 mg PO DAILY PRN (Reason: pain) Changed insulin lispro [Humalog KwikPen Insulin] 100 unit/mL Insulin Pen 10 unit subcut TIDCM Qty: 1 0RF insulin degludec [Tresiba FlexTouch U-100] 100 unit/mL (3 mL) insulin pen 35 unit SUBCUT QHS Qty: 1 0RF Patient Comments: INJECT 86 UNITS SUBCUTANEOUSLY DAILY AT BEDTIME Discontinued vitamin E 400 unit Capsule 400 unit PO DAILY levothyroxine 300 mcg tablet 300 mcg PO DAILY Patient Comments: TAKES IN EVENING potassium chloride 10 mEq tablet extended release 10 meq PO DAILY furosemide 40 mg tablet 40 mg PO BID insulin lispro [Humalog KwikPen Insulin] 100 unit/mL insulin pen See Protocol subcut DAILY Protocol: 1. Sliding Scale Insulin Low Dosing Condition: 150-224 mg/dl = 1 unit Condition: 225-299 mg/dl = 2 units Condition: 300-374 mg/dl = 3 units Condition: 375-449 mg/dl = 4 units Condition: Greater than 449 call physician Protocol Text: Suggested for: - Patients on Total Daily Insulin Dose of 15-27 units - Thin, elderly, renal patients LOW DOSING ALGORITHM Referrals / Follow Up: Rebeka Rabago MD [Primary Care Provider, Internal Medicine] - 08/09/25 2:40 pm Referral Note: Appt will be with Aftab Ely NP. Disposition Disposition (needs filled in before D/C Order can be placed): Home Health Service Charges/Coding Visit Charges Inpatient E&M: 09449 Disch Hosp >30min
--- NOTE | 2025-08-03 16:08 | CASEMGMT ---
Discharge Planning DC instructions sent to [facility]. Marizol Rueda, DC Planning Asst.
[2025-08-03 16:30] VITALS: BP 121/55; PULSE 64; RESP 14; TEMP 35.5; O2SAT 94
== END 2025-08-03 18:25 | disposition home health service (06) | DRG 427 ==
LOC: ED 16:00 → PCU 17:54
PROVIDERS: Admitting Provider Hospitalist; Emergency Provider Emergency Medicine; PCP Internal Medicine; Visit Provider Internal Medicine
DX: E03.9 Hypothyroidism, unspecified (principal); J96.21 Acute and chronic respiratory failure with hypoxia; I31.39 Other pericardial effusion (noninflammatory); I50.43 Acute on chronic combined systolic (congestive) and diastolic (congestive) heart failure; I42.9 Cardiomyopathy, unspecified; I13.0 Hypertensive heart and chronic kidney disease with heart failure and stage 1 through stage 4 chronic kidney disease, or unspecified chronic kidney disease; E11.22 Type 2 diabetes mellitus with diabetic chronic kidney disease; N18.32 Chronic kidney disease, stage 3b; E66.813 Obesity, class 3; D64.9 Anemia, unspecified; Z79.4 Long term (current) use of insulin; Z68.42 Body mass index [BMI] 45.0-49.9, adult; G89.4 Chronic pain syndrome; Z86.16 Personal history of COVID-19; Z87.891 Personal history of nicotine dependence; Z79.899 Other long term (current) drug therapy; Z79.85 Long-term (current) use of injectable non-insulin antidiabetic drugs
CPT/HCPCS: 36415; 71045; 74176; 80048; 80053; 81001; 82533; 82962; 83605; 83880; 84439; 84443; 84484; 85025; 85027; 93005; 93308; 97116; 97162; 97166; 97530; 97802; 99284; A4216; J1938; J2405

== ENCOUNTER 2025-08-15 14:43 | Emergency (ER) | payer MEDICAID, SELFPAY ==
[2025-08-15] VITALS (8 sets, daily range): BP systolic 92–150; BP diastolic 57–106; PULSE 66–89; RESP 12–21; TEMP 36.7; O2SAT 94–100; BMI 49.5
--- NOTE | 2025-08-15 15:02 | EDS_ITS ---
HPI History of Present Illness Chief Complaint: Chest Pain Narrative Narrative: 59-year-old female past medical history of COPD status post COVID, wears oxygen at home was sent in by her home health aides because of 10 pound weight gain in a week and chest pressure and tightness. She states that the chest pressure and tightness began maybe an hour ago. She states that throughout the last week she has been gaining weight. She is on a water pill. She also wears oxygen at home. She states that she was wearing 4 L at night, but then was told to wear 2 L at all times. She denies any fevers or chills, no cough. She states that she was recently hospitalized on 03 August, and she did not want to go to a [facility] facility so she went home with home health. She presents today because of chest tightness and weight gain. [facility] Medical History Swelling of both lower extremities Dyspnea on exertion COVID History of hypothyroidism Type 2 diabetes mellitus treated with insulin Chronic respiratory failure with hypoxia Pericardial effusion Thrombocytopenia Anemia Elevated lipase Urinary retention Obesity Former tobacco use UTI (urinary tract infection) Kidney stones Migraines Hypothyroid Hypercholesteremia Hypertension Type 2 diabetes mellitus Home Medications Medication Instructions Recorded Last Taken Type estradiol 0.01% (0.1 mg/gram) 3 g vaginal .COMPLEX hea lth 03/25/21 Unknown History vaginal cream maintenance fenofibrate 160 mg tablet 160 mg PO DAILY cholesterol 03/25/21 07/09/25 History dicyclomine 10 mg capsule 10 mg PO ACHS abdominal pain 07/06/21 Unknown History rosuvastatin 10 mg tablet 10 mg PO DAILY cholesterol 1 07/08/25 History cholecalciferol (vitamin D3) 125 125 mcg PO DAILY SUPP LEMENT 05/03/24 07/09/25 History mcg (5,000 unit) capsule omeprazole 40 mg capsule,delayed 40 mg PO DAILY STOMAC H 05/03/24 07/09/25 History release dulaglutide 4.5 mg/0.5 mL 4.5 mg subcut QWEEK BLOOD JOHNSON GAR 10/27/24 07/08/25 History subcutaneous pen injector (Trulicity) gabapentin 800 mg tablet 800 mg PO TID NEUROPATHY 03/2807/09/25 History hydrocodone-acetaminophen 5-325mg 1 tab PO Q6H PRN tsering n 07/09/25 07/04/25 History 5mg-325mg peg 400-propylene glycol 0.4 %-0.3 1 drp ophthalmic (e ye) 4X/DAY DRY 07/09/25 07/07/25 History % eye drops (Systane Ultra) EYE meloxicam 15 mg tablet 15 mg PO DAILY PRN pain 07/05 06/28 Unknown History furosemide 40 mg tablet 40 mg PO BIDLX #60 tabs 07/06 10/28 Unknown Rx insulin degludec 100 unit/mL (3 35 unit (0.35 mL) subc ut QHS 08/03/25 07/08/25 Rx mL) subcutaneous pen (Tresiba diabetes #1 mL FlexTouch U-100 insulin) insulin lispro 100 unit/mL 10 unit (0.1 mL) subcut TID CM 08/03/25 07/08/25 Rx subcutaneous pen (Humalog KwikPen DIABETES #1 mL (U-100) Insulin) levothyroxine 150 mcg tablet 300 mcg (2 x 150 mcg) PO 08/03/25 Unknown Rx DAILY@0600 #30 tabs potassium chloride 10 mEq 20 meq (2 x 10 mEq) PO DAILY #60 08/03/25 Unknown Rx tablet,extended release (Klor-Con) tabs Allergy/AdvReac Type Severity Reaction Status Date / Time metformin AdvReac Diarrhea Verified 08/15/25 14:48 oxycodone (From Percocet) AdvReac upset Verified 08/15/25 14:48 stomach/off balance Family History Mother Diabetes Father Diabetes Surgical History Previous section History of appendectomy Social History household members: none Smoking Status: Former smoker how long ago did patient quit smoking: Quit cigarette tobacco in 2014, 1 ppd since teenager until quit. alcohol intake: never substance use type: does not use ROS ROS ED ROS Narrative Review of systems is positive for chest tightness that began approximately an hour ago. No fevers or chills, no cough. Reported weight gain over the last week, up to 10 pounds. Chronic leg swelling. No exacerbating or alleviating factors. EXAM Physical Exam Narrative Exam Narrative: Afebrile. Vital signs noted. Nontoxic-appearing. Cardiovascular examination reveals regular rate and rhythm. Lungs are clear to auscultation bilaterally anteriorly. No wheezing, no stridor. Decreased breath sounds bilaterally. Abdomen is soft and nontender. Positive pedal edema bilaterally. Neurological examination nonfocal, nonlateralizing. Const Vital Signs: 08/15/25 14:44 08/15/25 14:48 08/15/25 14:54 Temperature 98.0 F Temperature Source Oral Pulse Rate 89 Respiratory Rate 21 H Respiratory Pattern Normal Blood Pressure 150/106 H Blood Pressure Mean 120 Pulse Ox 94 Oxygen Delivery Method Nasal Cannula Oxygen Flow Rate (L/min) 2 08/15/25 15:20 08/15/25 15:44 08/15/25 16:00 Temperature Temperature Source Pulse Rate 66 66 Respiratory Rate 17 14 Respiratory Pattern Blood Pressure 143/80 H 131/72 H Blood Pressure Mean 101 91 Pulse Ox 94 98 99 Oxygen Delivery Method Nasal Cannula Nasal Cannula Nasal Cannula Oxygen Flow Rate (L/min) 2 2 2 08/15/25 17:00 Temperature Temperature Source Pulse Rate 66 Respiratory Rate 12 Respiratory Pattern Blood Pressure 144/84 H Blood Pressure Mean 104 Pulse Ox 100 Oxygen Delivery Method Room Air Oxygen Flow Rate (L/min) MDM MDM MDM Narrative Medical decision making narrative: The differential diagnosis includes but not limited to COPD exacerbation versus pneumonia versus pneumothorax versus CHF. Patient is satting 94% on 2 L nasal cannula oxygen. Comprehensive workup was pursued. EKG was obtained and interpreted by myself independently. Although electronically read as accelerated junctional rhythm, appears to be normal sinus at 66 bpm without ectopy or acute ST changes. No STEMI. I reviewed her prior inpatient hospital visit and her echocardiogram 2 weeks ago did show posterior and inferior hypokinesis with a 40 to 45% ejection fraction. Chest x-ray obtained and interpreted by myself independently which shows cardiomegaly but no consolidation or pneumothorax. I reviewed the radiology report which confirms my independent interpretation. I reviewed her laboratory work and she has neutropenia of 3.9 but when compared to prior labs she has had intermittent neutropenia as well. Hemoglobin stable at 10.2, hematocrit 33.2, platelet count low at 97. When compared to prior labs, she has had chronic thrombocytopenia as well. I do not feel she requires platelet transfusion. Sodium is elevated at 146 with chloride 109, BUN of 37 and creatinine 1.58, but she has history of chronic kidney disease. Glucose elevated to 17 but she has normal anion gap of 7. Initial high-sensitivity troponin is 37 which appears to be her baseline. Additionally, repeat troponin at 2 hours is 38 for flat troponins. I do not feel that she requires a third troponin as this is her baseline. BNP is 174. Patient was administered Lasix 40 mg here. She already takes it twice a day and she has oxygen at home. At this point in time, I do not feel she is meeting any admission criteria. She should continue her Lasix and follow-up with her college and career counselor as an outpatient. She states that she does not have an appointment until February but she was told to follow-up with her primary care provider and call her college and career counselor tomorrow. I feel she can be discharged home to wear her oxygen as previously directed at all times. Return instructions to the emergency department were reviewed. Disposition is discharged home in stable condition. History & Record Review Discussion w/independent historian: Patient Additional record(s) reviewed:: Prior inpatient record and Prior labs Lab Data Attestation: I reviewed the patient's lab results. Labs: Laboratory Results - last 24 hr 08/15/25 08/15/25 15:15 17:20 WBC 3.9 L RBC 3.51 L Hgb 10.2 L Hct 33.2 L MCV 94.6 MCH 29.1 MCHC 30.7 L RDW Std Deviation 53.7 H RDW Coeff of Catina 15.7 H Plt Count 97 L MPV 11.3 Immature Gran % (Auto) 0.800 Neut % (Auto) 71.3 H Lymph % (Auto) 15.3 L [place] % (Auto) 7.7 Eos % (Auto) 4.6 Baso % (Auto) 0.3 Absolute Neuts (auto) 2.8 Absolute Lymphs (auto) 0.60 L Nucleated RBC % 0 Sodium 146 H Potassium 4.7 Chloride 109 H Carbon Dioxide 29.8 Anion Gap 7 BUN 37 H Creatinine 1.58 H Estim Creat Clear Calc 51.55 Est GFR (MDRD) Non-Af 37 L BUN/Creatinine Ratio 23.1 H Glucose 217 H Calcium 8.7 Troponin T High Sens 37 H D Troponin T Hi Sens 2 Hr 38 H NT pro BNP II 174 Radiography Diagnostic Testing: Clinical Impression(s) from Imaging Studies Chest X-Ray 08/15/25 15:20 IMPRESSION: Cardiac enlargement, interstitial edema. Reading Location: [facility] Discharge Plan Triage Chief Complaint: Chest Pain ED Provider: John Iyer Dx/Rx/DC Orders Clinical Impression: Congestive heart failure, Weight gain, Chest pain Instructions: ED Heart Failure, Congestive (CHF), ED Chest Pain, Uncertain Cause Prescriptions: No Action estradiol 0.01 % (0.1 mg/gram) cream 3 g VAGINAL .COMPLEX Patient Comments: insert 3 grams vaginally two times a week PT HAS NOT BEEN USING LATELY. Rx Instructions: 3 grams vaginally 2 TIMES PER WEEK; fenofibrate 160 mg tablet 160 mg PO DAILY Patient Comments: take 1 tablet by mouth once daily dicyclomine 10 mg capsule 10 mg PO ACHS Patient Comments: take 1 capsule by mouth four times a day before meals and at bedtime FOR ABDOMINAL PAIN. PT HAS NOT YET PICKED UP THE RX rosuvastatin 10 mg tablet 10 mg PO DAILY Patient Comments: take 1 tablet by mouth at bedtime gabapentin 800 mg tablet 800 mg PO TID Systane Ultra 0.4-0.3 % drops 1 drp ophthalmic (eye) 4X/DAY hydrocodone-acetaminophen 5-325 mg tablet 1 tab PO Q6H PRN (Reason: pain) cholecalciferol (vitamin D3) 125 mcg (5,000 unit) capsule 125 mcg PO DAILY omeprazole 40 mg capsule,delayed release(DR/EC) 40 mg PO DAILY Trulicity 4.5 mg/0.5 mL pen injector 4.5 mg subcut QWEEK meloxicam 15 mg tablet 15 mg PO DAILY PRN (Reason: pain) furosemide 40 mg Tablet 40 mg PO BIDLX Qty: 60 0RF levothyroxine 150 mcg Tablet 300 mcg PO DAILY@0600 Qty: 30 0RF potassium chloride [Klor-Con 10] 10 mEq tablet extended release 20 meq PO DAILY Qty: 60 0RF insulin lispro [Humalog KwikPen Insulin] 100 unit/mL Insulin Pen 10 unit subcut TIDCM Qty: 1 0RF insulin degludec [Tresiba FlexTouch U-100] 100 unit/mL (3 mL) insulin pen 35 unit SUBCUT QHS Qty: 1 0RF Patient Comments: INJECT 86 UNITS SUBCUTANEOUSLY DAILY AT BEDTIME Primary Care Provider: Rebeka Rabago Referrals: Rebeka Rabago MD [Primary Care Provider, Internal Medicine] - 3-5 Days if not improving Activity Restrictions/Additional Instructions: Call your college and career counselor, and to get an ED follow-up appointment. Continue your Lasix 40 mg twice a day. Wear your oxygen as previously directed. Return with increased chest pain, difficulty breathing, new or worsening symptoms. Print Language: Indonesian Disposition Disposition: Home, Self Care
--- NOTE | 2025-08-15 15:20 | RAD_ITS ---
PROCEDURE: CHEST 1 VIEW (PORTABLE) 08/15/2025 REASON FOR EXAM: CHEST PAIN TECHNIQUE: Frontal view of the chest. COMPARISON: August 01, 2025 FINDINGS: Hardware: EKG leads Heart: There is severe cardiomegaly. Lungs: Central congestion, mild edema. Linear atelectasis of the lung bases. Bones: The bones are unremarkable. RAD/Chest 1 View (Portable) IMPRESSION: Cardiac enlargement, interstitial edema. Reading Location: [id number]
[2025-08-15 15:29] LABS: Hematocrit 33.2 % (37-47); Hemoglobin 10.2 g/dL (12.0-15.0); Immature Granulocytes Count 0.030 X10^3/uL (0.0-0.0); Mean Corp Hgb Conc 30.7 g/dL (32-36); Mean Corpuscular Volume 94.6 fL (81-99); Mean Platelet Vol. 11.3 fl (6.2-12.0); NRBC Flagged by Analyzer 0 % (0-5); POSITIVE COUNT YES; POSITIVE DIFFERENTIAL YES; Platelet Count 97 K/mm3 (150-450); RBC Distribution Width CV 15.7 % (11.6-14.6); RBC Distribution Width SD 53.7 fl (35.1-43.9); Red Blood Count 3.51 M/mm3 (4.2-5.4); White Blood Count 3.9 K/mm3 (4.4-11.0)
[2025-08-15 15:31] LABS: Differential Indicated SCAN CRITERIA MET
[2025-08-15 16:08] LABS: Anion Gap 7 (5-15); BUN 37 mg/dL (4-19); BUN/Creat Ratio 23.1 RATIO (10-20); Calcium,Total 8.7 mg/dL (7.6-11.0); Carbon Dioxide 29.8 mmol/L (21.0-32.0); Chloride 109 mmol/L (98-108); Estimated Creatinine Clearance 51.55 ml/min (50-250); Glucose 217 mg/dL (70-99); Potassium 4.7 mmol/L (3.3-5.1); Pro- Brain NATRIURETIC PEPTIDE 174 pg/mL (<=900); Troponin T High Sensitivity 37 ng/L (<=14)
[2025-08-15 18:02] LABS: Troponin T High Sens 2 HR 38 ng/L (<=14)
[2025-08-15 18:35] LABS: Differential Comment SCANNED
== END 2025-08-15 18:47 | disposition home or self-care (01) ==
PROVIDERS: Emergency Provider Emergency Medicine; PCP Internal Medicine; Visit Provider Emergency Medicine
DX: R07.9 Chest pain, unspecified (principal); I13.0 Hypertensive heart and chronic kidney disease with heart failure and stage 1 through stage 4 chronic kidney disease, or unspecified chronic kidney disease; I50.9 Heart failure, unspecified; J44.9 Chronic obstructive pulmonary disease, unspecified; E11.22 Type 2 diabetes mellitus with diabetic chronic kidney disease; Z79.4 Long term (current) use of insulin; Z87.891 Personal history of nicotine dependence; N18.9 Chronic kidney disease, unspecified; E78.00 Pure hypercholesterolemia, unspecified; Z99.81 Dependence on supplemental oxygen; Z79.85 Long-term (current) use of injectable non-insulin antidiabetic drugs; E03.9 Hypothyroidism, unspecified; Z79.890 Hormone replacement therapy; Z90.49 Acquired absence of other specified parts of digestive tract; R63.5 Abnormal weight gain
CPT/HCPCS: 71045; 80048; 83880; 84484; 85025; 93005; 96374; 99285; A4216; J1938

== ENCOUNTER 2025-08-24 15:36 | Inpatient (IN) | payer MEDICAID, SELFPAY ==
[2025-08-24] VITALS (10 sets, daily range): BP systolic 117–144; BP diastolic 49–101; PULSE 63–71; RESP 12–20; TEMP 36.2–36.9; O2SAT 93–100; BMI 44.9; BMI 46.7
--- NOTE | 2025-08-24 15:55 | EDS_ITS ---
HPI History of Present Illness Chief Complaint: Chest Pain Informant: patient Onset/Context/Timing Onset: Today Activity at onset: sudden and light activity Timing: Continuous Quality: Positive for Heaviness Location: Left Chest Worsened By: Exertion Relieved By: Nothing Associated Symptoms: Positive for Cough and Lightheadedness; Negative for Nausea, Vomiting, Diaphoresis, Dyspnea, Fever, Acid Reflux or Palpitations Narrative Narrative: Patient presents with chest pain that began today. Patient states began rather suddenly. Patient states she was having home physical therapy when the pain began. Patient describes it as heaviness. Patient states it is over the left chest and goes down her left arm. Patient states it also goes into her left upper abdomen. Patient states it is worse with some exertion. Patient states nothing makes it better. Patient admits to a mild cough. Patient also admits to some mild lightheadedness. Patient denies any nausea or vomiting. Patient denies any shortness of breath. Patient denies any fevers or chills. Patient denies any palpitations. CVD Risk Factors: Positive for Diabetes; Negative for Hypertension, Hypercholesterolemia, Family History 1' </=55 or Smoking PE Risk Factors: Negative for Recent Travel/Surgery, Recent Immobilization, Prior DVT or PE, Cancer or OCP + Smoking + >/=35 PFSH PFSH Medical History Palliative care encounter Goals of care, counseling/discussion Severe hypothyroidism CHF (congestive heart failure) Weakness Dyspnea 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re with preserved ejection fraction Acute on chronic hypoxic respiratory failure CHF exacerbation Swelling of both lower extremities Dyspnea on exertion COVID History of hypothyroidism Type 2 diabetes mellitus treated with insulin Chronic respiratory failure with hypoxia Pericardial effusion Thrombocytopenia Anemia Elevated lipase Urinary retention Obesity Former tobacco use UTI (urinary tract infection) Kidney stones Migraines Hypothyroid Hypercholesteremia Hypertension Type 2 diabetes mellitus Home Medications ?Medication ?Instructions ?Recorded ?Last Taken ?Type estradiol 0.01% (0.1 mg/gram) 3 g vaginal .COMPLEX hea lth 03/25/21 Unknown History vaginal cream maintenance fenofibrate 160 mg tablet 160 mg PO DAILY cholesterol 03/25/21 07/09/25 History dicyclomine 10 mg capsule 10 mg PO ACHS abdominal pain 07/06/21 Unknown History rosuvastatin 10 mg tablet 10 mg PO DAILY cholesterol 1 07/08/25 History cholecalciferol (vitamin D3) 125 125 mcg PO DAILY SUPP LEMENT 05/03/24 07/09/25 History mcg (5,000 unit) capsule omeprazole 40 mg capsule,delayed 40 mg PO DAILY STOMAC H 05/03/24 07/09/25 History release dulaglutide 4.5 mg/0.5 mL 4.5 mg subcut QWEEK BLOOD JOHNSON GAR 10/27/24 07/08/25 History subcutaneous pen injector (Trulicity) gabapentin 800 mg tablet 800 mg PO TID NEUROPATHY 03/2807/09/25 History hydrocodone-acetaminophen 5-325mg 1 tab PO Q6H PRN tsering n 07/09/25 07/04/25 History 5mg-325mg peg 400-propylene glycol 0.4 %-0.3 1 drp ophthalmic (e ye) 4X/DAY DRY 07/09/25 07/07/25 History % eye drops (Systane Ultra) EYE meloxicam 15 mg tablet 15 mg PO DAILY PRN pain 07/05 06/28 Unknown History furosemide 40 mg tablet 40 mg PO BIDLX #60 tabs 07/06 10/28 Unknown Rx insulin lispro 100 unit/mL 10 unit (0.1 mL) subcut TID CM 08/03/25 07/08/25 Rx subcutaneous pen (Humalog KwikPen DIABETES #1 mL (U-100) Insulin) levothyroxine 150 mcg tablet 300 mcg (2 x 150 mcg) PO 08/03/25 Unknown Rx DAILY@0600 #30 tabs potassium chloride 10 mEq 20 meq (2 x 10 mEq) PO DAILY #60 08/03/25 Unknown Rx tablet,extended release (Klor-Con) tabs insulin degludec 100 unit/mL (3 86 unit subcut QHS jessica betes 08/24/25 Unknown History mL) subcutaneous pen (Tresiba FlexTouch U-100 insulin) Allergy/AdvReac Type Severity Reaction Status Date / Time metformin AdvReac Diarrhea Verified 08/24/25 15:38 oxycodone (From Percocet) AdvReac upset Verified 08/24/25 15:38 stomach/off balance Family History Mother Diabetes Father Diabetes Surgical History Previous section History of appendectomy Social History household members: none Smoking Status: Former smoker how long ago did patient quit smoking: Quit cigarette tobacco in 2015, 1 ppd since teenager until quit. alcohol intake: never substance use type: does not use ROS ROS ED Constitutional Constitutional ED: Denies chills or fever(s) Eyes Eyes: Denies blurry vision or change in vision ENT ENT ED: Reports sore throat; Denies rhinorrhea Cardiovascular Cardiovascular: Reports chest pain; Denies palpitations Respiratory/Chest Respiratory/Chest: Reports cough; Denies dyspnea Gastrointestinal Gastrointestinal: Reports abdominal pain; Denies nausea or vomiting Genitourinary Genitourinary ED: Denies dysuria or hematuria Musculoskeletal Musculoskeletal: Reports back pain and neck pain Integumentary Denies abscess or rash Neurologic Neurologic: Reports headache(s); Denies weakness Allergic/Immunologic Allergic/Immunologic ED: Denies mouth swelling or urticaria EXAM Physical Exam Const Vital Signs: 08/24/25 15:39 08/24/25 16:06 08/24/25 16:37 Temperature 98.5 F Temperature Source Oral Pulse Rate 71 68 Respiratory Rate 20 H 12 Blood Pressure 133/55 H 131/73 H Blood Pressure Mean 81 92 Pulse Ox 94 95 Oxygen Delivery Method Nasal Cannula Nasal Cannula Nasal Cannula Oxygen Flow Rate (L/min) 2 2 2 08/24/25 17:00 08/24/25 18:00 08/24/25 19:00 Temperature Temperature Source Pulse Rate 66 67 66 Respiratory Rate 17 16 Blood Pressure 136/73 H 119/101 H 130/65 H Blood Pressure Mean 94 107 86 Pulse Ox 97 95 99 Oxygen Delivery Method Nasal Cannula Nasal Cannula Oxygen Flow Rate (L/min) 2 2 08/24/25 20:00 08/24/25 20:42 08/24/25 22:00 Temperature 98.1 F Temperature Source Pulse Rate 63 65 64 Respiratory Rate 16 16 16 Blood Pressure 144/62 H 125/49 H 117/60 Blood Pressure Mean 89 74 79 Pulse Ox 97 100 97 Oxygen Delivery Method Nasal Cannula Nasal Cannula Oxygen Flow Rate (L/min) 2 2 Positive well nourished and well developed Constitutional Narrative: BMI is 44.9 General Appearance ED: well developed and NAD HEENT Reports moist mucous membranes Neck supple and no JVD Chest Wall palpation of chest normal Resp normal respiratory effort and clear to auscultation bilaterally Cardio regular rate and regular rhythm GI soft to palpation, non-tender and non-distended Extremity normal to inspection Neuro oriented x3, CN's II-XII intact bilaterally and no sensory deficits noted Sensorium / Orientation: awake and alert Motor Exam: strength 5/5 throughout Psych mental status grossly normal MDM MDM MDM Narrative Medical decision making narrative: Differential diagnose includes cardiac dysrhythmia, cardiac ischemia, pneumonia, bronchitis, electrolyte abnormality, congestive heart failure, gastroesophageal reflux disease, and anxiety. EKG will be obtained to assess for cardiac dysrhythmia and cardiac ischemia. Chest x-ray will be obtained to assess for pneumonia or bronchitis. CBC will be obtained to assess for leukocytosis and anemia. Basic metabolic profile will be obtained to assess for electrolyte abnormality renal function. High-sensitivity troponin will be obtained to assess for cardiac ischemia. 2-hour repeat high-sensitivity troponin will be obtained to assess for ongoing cardiac ischemia. History & Record Review Additional record(s) reviewed:: Prior inpatient record, Prior ED visit and Prior labs Lab Data Attestation: I reviewed the patient's lab results. Lab results narrative: CBC was reviewed. There is a mild anemia with a hemoglobin of 10.5 and hemato crit of 32.5. Platelets were slightly low at 107. These are consistent with previous results. Basic metabolic profile was reviewed. BUN was slightly elevated at 33 and creatinine was 1.36. These are also consistent with previous results. Initial high-sensitivity troponin was reviewed and was minimally elevated at 36. 2-hour repeat high-sensitivity troponin was reviewed and was improved at 32. BNP was reviewed and was normal at 157. 4-hour high- sensitivity troponin was reviewed and was 31. TSH was reviewed and was slightly elevated at 12.0. T4 was reviewed and was normal at 1.4. Labs: Laboratory Results - last 24 hr 08/24/25 08/24/25 08/24/25 15:20 17:59 20:10 WBC 9.2 RBC 3.58 L Hgb 10.5 L Hct 32.5 L MCV 90.8 MCH 29.3 MCHC 32.3 RDW Std Deviation 51.7 H RDW Coeff of Catina 15.8 H Plt Count 107 L MPV 11.2 Immature Gran % (Auto) 0.400 Neut % (Auto) 87.4 H Lymph % (Auto) 5.6 L [place] % (Auto) 4.0 Eos % (Auto) 2.4 Baso % (Auto) 0.2 Absolute Neuts (auto) 8.0 H Absolute Lymphs (auto) 0.51 L Nucleated RBC % 0 Sodium 139 Potassium 4.1 Chloride 103 Carbon Dioxide 27.5 Anion Gap 9 BUN 33 H Creatinine 1.36 H Estim Creat Clear Calc 56.46 Est GFR (MDRD) Non-Af 45 L BUN/Creatinine Ratio 24.6 H Glucose 169 H Calcium 9.1 Troponin T High Sens 36 H Troponin T Hi Sens 2 Hr 32 H Troponin T Hi Sens 4Hr 31 H NT pro BNP II 157 TSH 12.000 H Free T4 1.40 Radiography Chest X-Ray - ED: 1 View, Read by ED Physician, Read by Radiologist, Cardiomegaly and CHF Diagnostic Testing: Clinical Impression(s) from Imaging Studies Chest X-Ray 08/24/25 16:05 IMPRESSION: CHF with increased pulmonary edema. No large pleural effusion. Reading Location: [facility] Portable chest x-ray was obtained. There is 1 view. On my independent interpretation, there is evidence of congestive heart failure and. Pulmonary edema. There is no pleural effusion noted. Bony thorax is normal. There is cardiomegaly noted. Radiologist also interpreted the x-rays and agrees. EKG Initial EKG: Attestation: I personally reviewed and interpreted this EKG as follows: Interpretation: Sinus Rhythm (69) and No Acute Injury Pattern Comments: EKG was obtained. On my independent interpretation, it showed a normal sinus rhythm with a rate of 69. WI interval, QRS interval, and QTc intervals were all normal. [place] was normal. There are no acute ST or T wave changes. Prior EKG tracings: available for review Prior: Unchanged (08/15/2025) Additional Tests and Interventions Additional Tests or Interventions: Because of the chest x-ray findings, BNP was obtained to assess for congestive heart failure. Treatment and Re-Evaluation :: Patient was given a dose of Lasix here. Case was discussed on with. He recommended obtaining a TSH and free T4. These were ordered. He will admit the patient to his service. Patient understood and was agreeable with the plan. All questions were answered. Discharge Plan Dx/Rx/DC Orders Clinical Impression: Congestive heart failure, Hypoxia, Diabetes Disposition Disposition: Acute Care Hospital [facility]
--- NOTE | 2025-08-24 16:05 | RAD_ITS ---
PROCEDURE: CHEST 1 VIEW (PORTABLE) 08/24/2025 REASON FOR EXAM: CHEST PAIN TECHNIQUE: Frontal view of the chest. COMPARISON: 08/15/2025 FINDINGS: Cardiomegaly with central vascular congestion. Interval increased interstitial and perihilar alveolar edema. No pneumothorax or sizable pleural effusion. Degenerative changes of the spine. RAD/Chest 1 View (Portable) IMPRESSION: CHF with increased pulmonary edema. No large pleural effusion. Reading Location: [id number]
[2025-08-24 16:25] LABS: Hematocrit 32.5 % (37-47); Hemoglobin 10.5 g/dL (12.0-15.0); Immature Granulocytes Count 0.040 X10^3/uL (0.0-0.0); Mean Corp Hgb Conc 32.3 g/dL (32-36); Mean Corpuscular Volume 90.8 fL (81-99); Mean Platelet Vol. 11.2 fl (6.2-12.0); NRBC Flagged by Analyzer 0 % (0-5); POSITIVE DIFFERENTIAL YES; Platelet Count 107 K/mm3 (150-450); RBC Distribution Width CV 15.8 % (11.6-14.6); RBC Distribution Width SD 51.7 fl (35.1-43.9); Red Blood Count 3.58 M/mm3 (4.2-5.4); White Blood Count 9.2 K/mm3 (4.4-11.0)
[2025-08-24 17:09] LABS: Anion Gap 9 (5-15); BUN 33 mg/dL (4-19); BUN/Creat Ratio 24.6 RATIO (10-20); Calcium,Total 9.1 mg/dL (7.6-11.0); Carbon Dioxide 27.5 mmol/L (21.0-32.0); Chloride 103 mmol/L (98-108); Estimated Creatinine Clearance 56.46 ml/min (50-250); Glucose 169 mg/dL (70-99); Potassium 4.1 mmol/L (3.3-5.1); Troponin T High Sensitivity 36 ng/L (<=14)
[2025-08-24 18:27] LABS: Troponin T High Sens 2 HR 32 ng/L (<=14)
[2025-08-24 20:12] LABS: Pro- Brain NATRIURETIC PEPTIDE 157 pg/mL (<=900)
[2025-08-24 20:44] LABS: Troponin T High Sens 4 HR 31 ng/L (<=14)
--- NOTE | 2025-08-24 22:16 | HP.PCM.HOS_ITS ---
[facility] - General General Date of Admission: 08/24/25 Date of Service: 08/24/25 Chief Complaint: Shortness of breath and lower extremity swelling [facility] Narrative BETTY AGARWAL, is a 59 F who presented to [facility] on 08/24/2025 with shortness of breath and lower extremity swelling. Medical history significant for combined heart failure, chronic respiratory failure on 2 L continuously, hypothyroidism, class II obesity, type 2 diabetes mellitus with neuropathy, CKD stage IIIb, GERD and chronic pain syndrome. She was last hospitalized here in late July for worsening weakness and lower extremity swelling. She was found to have severe hypothyroidism with TSH 56 and free T4 0.60 at that time. She was also found on limited echo to have worsening EF 40 to 45%, stage I diastolic dysfunction and mild concentric LV hypertrophy. She improved with some IV diuresis and a dose of IV Synthroid followed by initiation of home p.o. Synthroid, and she was able to be discharged home with home health care. Notably palliative care saw her here as well and patient was amenable to establishing with outpatient palliative care, but she did want to continue to be aggressive with her medical care at this time. In the ED today she was normotensive, in normal sinus rhythm and afebrile. She was satting in the mid 90s on home 2 L nasal cannula at rest but desaturated to the mid 80s and was short of breath with exertion. Chest x-ray showed CHF with increased pulmonary edema compared to previous, no pleural effusions noted. CBC and BMP were benign. Troponin trend 36 > 32 > 31. BNP 157, stable from previous but notably is underestimated with obesity. TSH 12 and free T4 1.40, much improved from previous. She was given a dose of IV Lasix and then hospitalist was contacted for admission. I saw the patient at bedside in the ED. Patient was fatigued and chronically ill-appearing but was otherwise sitting back comfortably in bed and answering questions appropriately. She did have +2-3 lower extremity pitting edema noted up to the knees and her legs were tender to palpation. She denied any fevers or chills. No upper respiratory infectious symptoms noted. No other acute concerns currently. Will be admitted for further management. [facility] Medical History (Updated 08/24/25 @ 23:[address] Franky Haque, DO) CHF exacerbation Palliative care encounter Goals of care, counseling/discussion Severe hypothyroidism CHF (congestive heart failure) Weakness Dyspnea 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re with preserved ejection fraction Acute on chronic hypoxic respiratory failure Swelling of both lower extremities Dyspnea on exertion COVID History of hypothyroidism Type 2 diabetes mellitus treated with insulin Chronic respiratory failure with hypoxia Pericardial effusion Thrombocytopenia Anemia Elevated lipase Urinary retention Obesity Former tobacco use UTI (urinary tract infection) Kidney stones Migraines Hypothyroid Hypercholesteremia Hypertension Type 2 diabetes mellitus Home Medications ?Medication ?Instructions ?Recorded ?Last Taken ?Type estradiol 0.01% (0.1 mg/gram) 3 g vaginal .COMPLEX hea lth 03/25/21 Unknown History vaginal cream maintenance fenofibrate 160 mg tablet 160 mg PO DAILY cholesterol 03/25/21 07/09/25 History dicyclomine 10 mg capsule 10 mg PO ACHS abdominal pain 07/06/21 Unknown History rosuvastatin 10 mg tablet 10 mg PO DAILY cholesterol 1 07/08/25 History cholecalciferol (vitamin D3) 125 125 mcg PO DAILY SUPP LEMENT 05/03/24 07/09/25 History mcg (5,000 unit) capsule omeprazole 40 mg capsule,delayed 40 mg PO DAILY STOMAC H 05/03/24 07/09/25 History release dulaglutide 4.5 mg/0.5 mL 4.5 mg subcut QWEEK BLOOD JOHNSON GAR 10/27/24 07/08/25 History subcutaneous pen injector (Trulicity) gabapentin 800 mg tablet 800 mg PO TID NEUROPATHY 03/2807/09/25 History hydrocodone-acetaminophen 5-325mg 1 tab PO Q6H PRN tsering n 07/09/25 07/04/25 History 5mg-325mg peg 400-propylene glycol 0.4 %-0.3 1 drp ophthalmic (e ye) 4X/DAY DRY 07/09/25 07/07/25 History % eye drops (Systane Ultra) EYE meloxicam 15 mg tablet 15 mg PO DAILY PRN pain 07/05 06/28 Unknown History furosemide 40 mg tablet 40 mg PO BIDLX #60 tabs 07/06 10/28 Unknown Rx insulin lispro 100 unit/mL 10 unit (0.1 mL) subcut TID CM 08/03/25 07/08/25 Rx subcutaneous pen (Humalog KwikPen DIABETES #1 mL (U-100) Insulin) levothyroxine 150 mcg tablet 300 mcg (2 x 150 mcg) PO 08/03/25 Unknown Rx DAILY@0600 #30 tabs potassium chloride 10 mEq 20 meq (2 x 10 mEq) PO DAILY #60 08/03/25 Unknown Rx tablet,extended release (Klor-Con) tabs insulin degludec 100 unit/mL (3 86 unit subcut QHS jessica janinaes 08/24/25 Unknown History mL) subcutaneous pen (Tresiba FlexTouch U-100 insulin) Allergy/AdvReac Type Severity Reaction Status Date / Time metformin AdvReac Diarrhea Verified 08/24/25 15:38 oxycodone (From Percocet) AdvReac upset Verified 08/24/25 15:38 stomach/off balance Family History Mother Diabetes Father Diabetes Surgical History Previous section History of appendectomy Social History household members: none Smoking Status: Former smoker how long ago did patient quit smoking: Quit cigarette tobacco in 2014, 1 ppd since teenager until quit. alcohol intake: never substance use type: does not use ROS Constitutional Constitutional: Reports fatigue and weakness; Denies chills or fever(s) Cardiovascular Cardiovascular: Reports dyspnea on exertion and edema; Denies chest pain, lightheadedness, orthopnea or palpitations Respiratory/Chest Respiratory/Chest: Reports cough; Denies productive cough, shortness of breath at rest or wheezing Gastrointestinal Gastrointestinal: Denies abdominal pain, constipation, diarrhea, nausea or vomiting Genitourinary Genitourinary: Denies dysuria Musculoskeletal Musculoskeletal: Denies arthralgias or myalgias Neurologic Neurologic: Denies dizziness, focal weakness, headache(s), numbness or tingling Vital Signs Vital Signs Vital Signs: 08/24/25 15:39 08/24/25 16:06 08/24/25 16:37 Temperature 98.5 F Temperature Source Oral Pulse Rate 71 68 Respiratory Rate 20 H 12 Blood Pressure 133/55 H 131/73 H Blood Pressure Mean 81 92 Pulse Ox 94 95 Oxygen Delivery Method Nasal Cannula Nasal Cannula Nasal Cannula Oxygen Flow Rate (L/min) 2 2 2 08/24/25 17:00 08/24/25 18:00 08/24/25 19:00 Temperature Temperature Source Pulse Rate 66 67 66 Respiratory Rate 17 16 Blood Pressure 136/73 H 119/101 H 130/65 H Blood Pressure Mean 94 107 86 Pulse Ox 97 95 99 Oxygen Delivery Method Nasal Cannula Nasal Cannula Oxygen Flow Rate (L/min) 2 2 08/24/25 20:00 08/24/25 20:42 Temperature 98.1 F Temperature Source Pulse Rate 63 65 Respiratory Rate 16 16 Blood Pressure 144/62 H 125/49 H Blood Pressure Mean 89 74 Pulse Ox 97 100 Oxygen Delivery Method Nasal Cannula Oxygen Flow Rate (L/min) 2 Weight Weight: 118.7 kg Body Mass Index (BMI) 44.9 Physical Exam Const alert, oriented x3 and no apparent distress Constitutional Narrative: Upper middle-aged female, appears older than stated age, fatigued and chronically ill-appearing, otherwise sitting back fairly comfortably in bed, answering questions appropriately, in no acute distress. General Appearance: cooperative and comfortable HEENT normocephalic, head/scalp atraumatic, hearing grossly normal bilaterally, nasal mucous membranes and turbinates normal and moist oral mucous membranes Eyes PERRL, EOMs intact bilaterally and conjunctivae normal Neck full ROM Chest inspection of chest normal Resp normal respiratory effort and no use of accessory muscles Resp Narrative: Breathing comfortably on 2 L nasal cannula at rest. Crackles noted in mid to lower lung zones, otherwise good air movement throughout with no wheezing noted. Cardio regular rate, regular rhythm, no murmurs and peripheral pulses 2+ throughout GI normal to inspection, nondistended, normoactive bowel sounds, soft to palpation, non-tender and non-distended Back/Spine normal ROM Extremity Extremity Narrative: +2-3 lower extremity pitting edema up to the knees noted with some tenderness to palpation bilaterally. Skin no rashes or lesions noted Psych mental status grossly normal Psych Narrative: Flat affect. Results Lab / Micro Data 08/24/25 15:20 08/24/25 15:20 Labs: Laboratory Results - last 24 hr 08/24/25 15:20: WBC 9.2, RBC 3.58 L, Hgb 10.5 L, Hct 32.5 L, MCV 90.8, MCH 29.3, MCHC 32.3, RDW Std Deviation 51.7 H, RDW Coeff of [place] 15.8 H, Plt Count 107 L, MPV 11.2, Immature Gran % (Auto) 0.400, Neut % (Auto) 87.4 H, Lymph % (Auto) 5.6 L, [place] % (Auto) 4.0, Eos % (Auto) 2.4, Baso % (Auto) 0.2, Absolute Neuts (auto) 8.0 H, Absolute Lymphs (auto) 0.51 L, Nucleated RBC % 0, Sodium 139, Potassium 4.1, Chloride 103, Carbon Dioxide 27.5, Anion Gap 9, BUN 33 H, Creatinine 1.36 H , Estim Creat Clear Calc 56.46, Est GFR (MDRD) Non-Af 45 L, BUN/Creatinine Ratio 24.6 H, Glucose 169 H, Calcium 9.1, Troponin T High Sens 36 H 08/24/25 17:59: Troponin T Hi Sens 2 Hr 32 H, NT pro BNP II 157 08/24/25 20:10: Troponin T Hi Sens 4Hr 31 H, TSH 12.000 H, Free T4 1.40 Imaging Radiology Impression Chest X-Ray 08/24/25 16:05 IMPRESSION: CHF with increased pulmonary edema. No large pleural effusion. Reading Location: [id number] Assessment & Plan Assessment/Plan (1) CHF exacerbation: (2) Hypoxia: PLAN: Plan Patient is a 59-year-old female who presented to [facility] ED on 08/24/2025 with worsening shortness of breath and lower extremity swelling. 1. Acute on chronic combined CHF exacerbation with acute hypoxia in setting of chronic hypoxic respiratory failure, known history of pericardial effusion ? Admit under inpatient status to PCU. On home 2 L nasal cannula continuously, became hypoxic to the low to mid 80s on 2 L with exertion in the ED. Chest x- ray with cardiomegaly with worsening vascular congestion. BNP normal but can be underestimated with obesity. Troponin trend 36 > 32 > 31. Complete echo on 07/09 with EF 55%, mild concentric LV hypertrophy, no other acute concerns. Chest imaging on 08/02 showed concern for worsening pericardial effusion, so a limited echo was obtained that showed EF 40 to 45%, posterior and inferior hypokinesis, and moderate pericardial effusion mildly increased from 07/10, no evidence of tamponade. Will repeat limited echo again to ensure LV function and pericardial effusion have not worsened. May be secondary to under diuresis in setting of heart failure with CKD as below. Lower concern for DVT/PE but this cannot be ruled out especially given patient's poor mobility. Given her kidney function as below, will order venous duplex ultrasound for bilateral lower extremities and follow up this result and echo result. Will treat with IV Lasix 60 mg twice daily for now, follow-up daily BMP and urine output. Wean supplemental oxygen as able. 2. Mild acute on chronic debility ? PT/OT/case management consulted. Patient has followed with home health care since recent hospitalization at the end of July. Mild worsened debility over the past few days primarily due to shortness of breath with exertion and volume overload. Will likely be okay to resume [facility] on discharge but appreciate therapy recommendations. 3. Hypothyroidism ? Noted to have severe hypothyroidism during prior admission in late July with TSH 56 and free T4 0.6. Has been compliant with Synthroid since then and repeat labs on this admit with TSH 12 and free T4 1.40. Current home dosing of Synthroid 300 mcg daily. Suspect this is actually too high of a dose for her, given her rapid improvement in thyroid labs with adherence to home medication. Will decrease to Synthroid 200 mcg daily at this time. Will need repeat thyroid labs in 4 to 6 weeks for continued monitoring. Chronic medical conditions: ? Class III obesity: BMI 44 on admit. Complicates hospital course and care. ? Type 2 diabetes mellitus with diabetic neuropathy: Glucose 169 on admit. Recent A1c 8.5% on 07/10. Will treat with reduced home dosing of Lantus 40 units at night and Humalog 8 units with meals plus sliding scale insulin, adjust as needed. Hold home Trulicity. Continue home gabapentin. ? Hyperlipidemia: Continue home statin and fenofibrate. ? CKD stage IIIb: Creatinine 1.36 on admit, stable at baseline. Monitor daily BMP and urine output while on IV diuresis as above. ? GERD: Continue home PPI. ? Chronic pain syndrome: OARRS reviewed. Continue home hydrocodone?acetaminophen 4 times daily as needed. ? Chronic normocytic anemia: Hemoglobin 10.5 on admit, stable at baseline. DVT prophylaxis: Lovenox twice daily CODE STATUS: Full code, verified Expected disposition: Likely home with home health care, TBD Total clinical time spent by myself addressing the patient's medical issues, reviewing all the data, and collaborating with patient's care team: 79 minutes. Charges/Coding Visit Charges Inpatient E&M: 43356 Init Hosp L3
--- NOTE | 2025-08-24 22:22 | ECHOL_ITS ---
Reason For Study Reason For Study: CHF Procedure This was a limited 2D transthoracic echocardiogram. The study was technically difficult. D/T body habitus and decline of Difinity. Exam performed portable in patient room. Left Ventricle Mild concentric left ventricular hypertrophy. Left ventricular systolic function is normal. No regional wall motion abnormalities noted. Right Ventricle Normal size and thickness. Normal systolic function. Atria The left and right atria are normal. Mitral Valve The mitral valve is structurally normal. No prolapse or stenosis seen. No mitral valve insufficiency. Tricuspid Valve Normal tricuspid valve. Unable to estimate RV systolic pressure due to insufficient tricuspid regurgitant envelope. Aortic Valve Normal aortic valve. There is no aortic stenosis. Pulmonic Valve The pulmonic valve is not well visualized. Great Vessels Normal sized aortic root. Pericardium/Pleural Small (<1.0 cm) pericardial effusion. There are no echocardiographic indications of cardiac tamponade. MMode/2D Measurements & Calculations LVIDd: 5.5 cm IVSd: 1.2 cm Ao root diam: 3.3 cm LVIDs: 3.8 cm LVPWd: 1.0 cm RVDd: 3.5 cm FS: 30.7 % LAV(MOD-bp): 89.4 ml LVAd ap4: 27.8 cm2 SV(MOD-sp4): 62.7 ml LAV(MOD-bp) Indexed: 40.8 ml/m2 LVLd ap4: 7.9 cm SI(MOD-sp4): 28.6 ml/m2 LAV(MOD-sp2): 89.7 ml EDV(MOD-sp4): 91.5 ml LAV(MOD-sp4): 89.6 ml EDV(sp4-el): 83.2 ml LVAs ap4: 15.1 cm2 LVLs ap4: 7.2 cm ESV(MOD-sp4): 28.8 ml ESV(sp4-el): 26.9 ml EF(MOD-sp4): 68.6 % EF(sp4-el): 67.7 % SV(sp4-el): 56.3 ml LA A4 area: 24.8 cm2 LA dimension(2D): 4.1 cm RA A4 area: 16.8 cm2 ECHO/Echo, Limited Study Interpretation Summary Mild concentric left ventricular hypertrophy. Left ventricular systolic function is normal. Small (<1.0 cm) pericardial effusion. There are no echocardiographic indications of cardiac tamponade. Ordering Physician: Franky Haque Referring Physician: Rebeka Rabago Performed By: Asiya Kramer, LEDA, RVT
--- NOTE | 2025-08-24 22:38 | NURSING ---
Called Fabio DONALD to get permision to treat. It is off hours and I was unable to reach anyone to talk to.
--- NOTE | 2025-08-24 22:45 | US_ITS ---
PROCEDURE: VENOUS DUPLEX IMAG/ANIRUDH EXTREM 08/24/2025 REASON FOR EXAM: Bilateral lower extremity swelling F 59 y/o TECHNIQUE: Procedure Code: USVDU Modality: US Procedure: VENOUS DUPLEX IMAG/ANIRUDH EXTREM COMPARISON: Comparison none FINDINGS: There is no intraluminal echogenicity to suggest the presence of a deep venous thrombosis. Appropriate respiratory variation, augmentation and venous compression is noted. US/Venous Duplex Imag/Anirudh Extrem IMPRESSION: No deep venous thrombosis identified in the extremities. Reading Location: [id number]
--- OUTSIDE RECORDS SUMMARY | 2025-08-24 22:46 | XMS RPT_ITS | CCD ---
Author Organization [facility] Care Team Providers 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 Name Role Phone Sarina Adams MD Primary Care Provider [facility], [place] Unavailable Dr. Sarina Adams Primary Care Provider Dr. Brooke Sainz Emergency Provider Dr. Justine Trent Attending Provider Sarina Adams MD Primary Care Provider [facility], [place] Unavailable Sarina Adams MD Primary Care Provider [facility], [place] Unavailable JAIDA SOARES Attending Unavailable SARINA ADAMS Referring Unavailable SARINA ADAMS Primary Care Unavailable [facility], [place] Unavailable Sarina Adams MD Primary Care Provider [facility], [place] Unavailable Alvarado SHRIMP PACKER.QUALITY ASSURANCE PRACTICE MANAGER, Denise Unavailable Cheli SHRIMP PACKER.ADVISORY SOFTWARE ENGINEER, Cole Unavailable Cheli SHRIMP PACKER.ADVISORY SOFTWARE ENGINEER, Cole Unavailable Cheli SHRIMP PACKER.ADVISORY SOFTWARE ENGINEER, Cole Unavailable Cheli SHRIMP PACKER.ADVISORY SOFTWARE ENGINEER, Cole Unavailable Alvarado SHRIMP PACKER.QUALITY ASSURANCE PRACTICE MANAGER, Denise Unavailable Talampas MD, Dr. Sarina D Primary Care Physician Dr. Niranjan Leblanc DO Emergency Department Physic rico Nisreen CHILDRESS, Dr. Vo Admitting Physician Nisreen DO, Dr. Vo Attending Physician Nisreen CHILDRESS, Dr. Vo Nurse Practitioner Nisreen CHILDRESS, Dr. Vo Nurse Practitioner David DUNNE, Dr. Sky Attending Physician Nisreen CHILDRESS, Dr. Vo Attending Physician David DUNNE, Dr. Sky Nurse Practitioner Christi DUNNE, Dr. Ward Attending Physician Talampas, Sarina D Primary Care Unavailable Asya Hernandez Attending Unavailable Tavo Nielson Admitting Unavailable Tavo Nielson Consulting Unavailable Asya Hernandez Consulting Unavailable John Walker Attending Unavailable Talampas, Sarina D Primary Care Unavailable Marianela Harvey Attending Unavailable Talampas, Sarina D Primary Care Unavailable Asya Hernandez Attending Unavailable Tavo Nielson Consulting Unavailable Nisreen Tavo Admitting Unavailable Talampas, Sarina D Primary Care Unavailable Talampas, Sarina D Primary Care Unavailable Franky Haque Consulting Unavailable Franky Haque Admitting Unavailable Sol Mock Attending Unavailable Siobhan Cosme Consulting Sophia Lamb Attending Unavailable Talampas, Sarina D Primary Care Unavailable Talampas, Sarina D Primary Care Unavailable Ed Barraza Attending Unavailable Talampas, Sarina D Primary Care Unavailable Franky Haque Admitting Unavailable Franky Haque Attending Unavailable Franky Haque Consulting Unavailable Sol Mock Attending Unavailable Siobhan Cosme Consulting Sol Guzman Consulting Unavailable Siobhan Cosme Attending UnaTavo Luz Attending Unavailable TALAMPAS, SARINA D Primary Care Unavailable BROOKE BE Referring Unavailable ALICJA WALSH Referring Unavailable TALAMPAS, SARINA D Primary Care Unavailable ALVARADO, DENISE Referring Unavailable ALVARADO, DENISE Attending Unavailable TALAMPAS, SARINA D Primary Care Unavailable RAMESH BREWSTER Attending Unavailable RAMESH BREWSTER Referring Unavailable TALAMPAS, SARINA D Primary Care Unavailable COLE BOWER Attending Unavailable ALVARADO, DENISE Referring Unavailable TALAMPAS, SARINA D Primary Care Unavailable CHELICOLE Referring Unavailable TALAMPAS, SARINA D Primary Care Unavailable ALVARADO, DENISE Referring Unavailable TALAMPAS, SARINA D Primary Care Unavailable TALAMPAS, SARINA D Primary Care Unavailable [place], BROOKE Attending Unavailable TALAMPAS, SARINA D Primary Care Unavailable ALICJA WALSH Referring Unavailable ALVARADO, DENISE Referring Unavailable TALAMPAS, SARINA D Primary Care Unavailable TALAMPAS, SARINA D Primary Care Unavailable GANTA, SALLY Attending Unavailable ALVARADO, DENISE Attending Unavailable TALAMPAS, SARINA D Primary Care Unavailable ALVARADO, DENISE Attending Unavailable TALAMPAS, SARINA D Primary Care Unavailable ALVARADO, DENISE Referring Unavailable TALAMPAS, SARINA D Primary Care Unavailable BRANDENTERNICKYKAY Referring Unavailable TALAMPAS, SARINA D Primary Care Unavailable TALAMPAS, SARINA D Primary Care Unavailable [place], BROOKE Referring Unavailable ALVARADO, DENISE Referring Unavailable ALVARADO, DENISE Attending Unavailable TALAMPAS, SARINA D Primary Care Unavailable ALVARADO, DENISE Referring Unavailable TALAMPAS, SARINA D Primary Care Unavailable TALAMPAS, SARINA D Primary Care Unavailable GANTA, SALLY Referring Unavailable ALVARADO, DENISE Attending Unavailable TALAMPAS, SARINA D Primary Care Unavailable SELF Referring Unavailable TALAMPAS, SARINA D Primary Care Unavailable BRANDENTERCHRISSIEA Attending Unavailable TALAMPAS, SARINA D Primary Care Unavailable [place], BROOKE Referring Unavailable Allergies Allergy Classification Reported Allergen(s) Allergy Type Date of Onset Reaction(s) Facility Acetaminophen / oxyCODONE (5 sources) Acetaminophen / oxyCODONE Drug Allergy 05-07-2014 GI Upset [facility] metFORMIN (5 sources) metFORMIN Drug Allergy 09-10-2016 Diarrhea [facility] Work Phone: Opioid Agonists (5 sources) oxyCODONE Drug Allergy 07-07-2021 GI Upset [facility] (20 sources) Acetaminophen / oxyCODONE; Translations: [OXYCODONE-ACETAMI NOPHEN] Drug Allergy 05-07-2014 GI Upset [facility] (20 sources) metFORMIN; Translations: [METFORMIN] Drug Allergy 09-10-2016 Diarrhea [facility] Work Phone: (20 sources) oxyCODONE; Translations: [OXYCODONE] Drug Allergy 07-07-2021 GI Upset [facility] (1 source) metFORMIN Drug Allergy 08-01-2025 [facility] (1 source) oxyCODONE Drug Allergy 08-01-2025 [facility] Medications Current Medications Medication Drug Class(es) Dates Sig (Normalized) Sig (Original) acetaminophen 325 mg / HYDROcodone bitartrate 5 mg oral tablet (20 sources) Opioid Agonist Start: 07-09-2025 Start: 06-12-2025 End: 07-12-2025 take 1 tablet by mouth four times daily as needed for pain HYDROcodone-acetaminophen (NORCO) 5-325 mg per tablet Indications: Chronic midline low back pain, unspecified whether sciatica present , Chronic SI joint pain Take 1 tablet by mouth four times a day as needed for pain for up to 30 days. 120 tablet 06/12/2025 07/12/2025 Active Start: 05-16-2024 End: 06-08-2025 HYDROcodone-acetaminophen (N ORCO) 5-325 mg per tablet Indications: Chronic midline low back pain, unspecified whether sciatica present , Chronic SI joint pain Take 1 tablet by mouth four times a day as needed for pain for up to 30 days. Patient should start on May 09, 2025. 120 tablet 05/09/2025 06/07/2025 Discontinued Start: 04-11-2024 End: 07-09-2025 Hydrocodone-Acetaminophen 5- 325 mg tablet Discontinued 1 {tbl} PO THREE TIMES A DAY as needed for pain 15 5 0 May 04, 2024 July 09, 2025 5:35pm Rotator cuff injury Contusion of left elbow, initial encounter Contusion of left elbow, initial encounter Start: 02-07-2024 End: 03-08-2024 take 1 tablet by mouth twice daily as needed for pain HYDROcodone-acetaminophen (NORCO) 5-325 mg per tablet Indications: Chronic midline low back pain, unspecified whether sciatica present , Chronic midline low back pain, unspecified whether sciatica present , Chronic SI joint pain Take 1 tablet by mouth two times a day as needed for pain for up to 30 days. 60 tablet 0 02/07/2024 02/11/2024 Discontinued Start: 01-12-2024 End: 04-08-2024 take 1 tablet by mouth three times daily as needed for pain HYDROcodone-acetaminophen (NORCO) 5-325 mg per tablet Indications: Chronic midline low back pain, unspecified whether sciatica present , Chronic SI joint pain Take 1 tablet by mouth three times a day as needed for pain for up to 30 days. 90 tablet 0 03/09/2024 04/08/2024 Active Start: 12-10-2023 End: 01-09-2024 HYDROcodone-acetaminophen (N ORCO) 5-325 mg per tablet Indications: Chronic midline low back pain, unspecified whether sciatica present , Chronic midline low back pain, unspecified whether sciatica present , Chronic SI joint pain Take 1 tablet by mouth three times a day as needed for pain for up to 30 days. Temporary increase to TID for x1 month on 12/10/2023 90 tablet 0 12/10/2023 01/09/2024 Discontinued Start: 10-14-2023 End: 12-15-2023 take 1 tablet by mouth twice daily as needed for pain HYDROcodone-acetaminophen (NORCO) 5-325 mg per tablet Indications: Chronic midline low back pain, unspecified whether sciatica present , Chronic SI joint pain Take 1 tablet by mouth two times a day as needed for pain for up to 30 days. 60 tablet 0 11/15/2023 12/10/2023 Discontinued Start: 07-05-2023 End: 10-11-2023 HYDROcodone-acetaminophen (N ORCO) 5-325 mg per tablet Indications: Chronic midline low back pain, unspecified whether sciatica present Take 1 tablet by mouth two times a day as needed for pain. Short term increase 07/02 to twice daily due to increased pain from recent fall 60 tablet 0 09/14/2023 10/11/2023 Discontinued Start: 07-05-2023 HYDROcodone-ac etaminophen (NORCO) 5-325 mg per tablet Indications: Chronic midline low back pain, unspecified whether sciatica present Take 1 tablet by mouth two times a day as needed for pain. Short term increase 07/02 to twice daily due to increased pain from recent fall Do not start before July 05, 2023. 60 tablet 0 07/05/2023 Active Start: 07-02-2023 End: 07-02-2023 HYDROcodone-acetaminophen (N ORCO) 5-325 mg per tablet Indications: Chronic midline low back pain, unspecified whether sciatica present Take 1 tablet by mouth two times a day as needed. Short term increase 07/02 to twice daily due to increased pain from recent fall 0 07/02/2023 07/02/2023 Discontinued Start: 03-25-2023 End: 07-24-2023 take 1 tablet by mouth once daily as needed for pain HYDROcodone-acetaminophen (NORCO) 5-325 mg per tablet Indications: Chronic midline low back pain, unspecified whether sciatica present Take 1 tablet by mouth once daily as needed for pain for up to 30 days. Do not start before April 25, 2023. 30 tablet 0 04/25/2023 05/22/2023 Discontinued Start: 03-04-2023 End: 03-14-2023 take 1 tablet by mouth once daily as needed for pain HYDROcodone-acetaminophen (NORCO) 5-325 mg per tablet Indications: Chronic midline low back pain, unspecified whether sciatica present Take 1 tablet by mouth once daily as needed for pain for up to 5 days. 5 tablet 0 03/09/2023 03/14/2023 Active Start: 02-17-2023 End: 02-22-2023 take 1 tablet by mouth twice daily as needed for pain HYDROcodone-acetaminophen (NORCO) 5-325 mg per tablet Indications: Chronic midline low back pain, unspecified whether sciatica present Take 1 tablet by mouth twice daily as needed for pain for up to 5 days. 10 tablet 0 02/17/2023 02/22/2023 Active Start: 02-08-2023 End: 02-13-2023 take 1 tablet by mouth twice daily as needed for pain HYDROcodone-acetaminophen (NORCO) 5-325 mg per tablet Indications: Chronic midline low back pain, unspecified whether sciatica present Take 1 tablet by mouth twice daily as needed for pain for up to 5 days. 10 tablet 0 02/08/2023 02/13/2023 Active Start: 01-22-2023 End: 01-28-2023 take 1 tablet by mouth every eight hours as needed for pain HYDROcodone-acetaminophen (NORCO) 5-325 mg per tablet Indications: Chronic midline low back pain, unspecified whether sciatica present Take 1 tablet by mouth every 8 hours as needed for pain for up to 5 days. 15 tablet 0 01/22/2023 01/28/2023 Discontinued Comment on above: Take 1 tablet by emely th every 8 hours as needed for pain for up to 5 days. Take 1 tablet by emely th twice daily as needed for pain for up to 5 days. Take 1 tablet by emely th once daily as needed for pain for up to 5 days. Take 1 tablet by emely th once daily as needed for pain for up to 30 days. Take 1 tablet by emely th once daily as needed for pain for up to 30 days. Do not start before April 25, 2023. Take 1 tablet by emely th once daily as needed for pain for up to 30 days. Do not start before May 25, 2023. Take 1 tablet by emely th two times a day as needed for pain. Short term increase 07/02 to twice daily due to increased pain from recent fall Do not start before July 05, 2023. Take 1 tablet by emely th two times a day as needed. Short term increase 07/02 to twice daily due to increased pain from recent fall Take 1 tablet by emely th two times a day as needed for pain. Short term increase 07/02 to twice daily due to increased pain from recent fall Take 1 tablet by emely th two times a day as needed for pain for up to 30 days. Do not start before October 14, 2023. Take 1 tablet by emely th two times a day as needed for pain for up to 30 days. Take 1 tablet by emely th three times a day as needed for pain for up to 30 days. Temporary increase to TID for x1 month on 12/10/2023 acetaminophen 325 mg / oxyCODONE hydrochloride 5 mg oral tablet (2 sources) Opioid Agonist Start: 3 End: 3 take 0.5-1 tablets by mouth every eight hours as needed for pain oxyCODONE-acetamino phen (PERCOCET) 5-325 mg tablet Indications: Chronic midline low back pain, unspecified whether sciatica present Take 0.5-1 tablets by mouth every 8 hours as needed for pain for up to 5 days. 15 tablet 0 01/15/2023 01/20/2023 Active Comment on above: Take 0.5-1 tablets b y mouth every 8 hours as needed for pain for up to 5 days. benoxinate hydrochloride 4 mg/ml / fluorescein sodium 2.5 mg/ml ophthalmic solution (3 sources) Diagnostic Dye Start: End: fluorescein-benoxin ate 0.25-0.4 % 1 Drop (FLURESS) Start: 12-25-2021 End: 12-26-2021 fluorescein-benoxinate 0.25- 0.4 % 1 Drop (FLURESS) Blood-Glucose Meter monitori ng kit (20 sources) Start: 04-19-2023 Blood-Glucose Meter monitoring kit Check sugars daily and as needed (Freestyle Lite is what she has had) 1 Each 04/19/2023 Active Start: 04-19-2023 Blood-Glucose Meter monitoring kit Check sugars daily and as needed (Freestyle Lite is what she has had) 1 Each 0 04/19/2023 Active Start: 06-26-2022 End: 04-19-2023 Blood-Glucose Meter monitori ng kit Check sugars daily and as needed (Freestyle Lite is what she has had) 1 Each 0 06/26/2022 04/19/2023 Discontinued Start: 06-26-2022 Blood-Glucose Meter monitoring kit Check sugars daily and as needed (Freestyle Lite is what she has had) 1 Each 0 06/26/2022 Active Comment on above: Check sugars daily a nd as needed (Freestyle Lite is what she has had) cholecalciferol 0.125 mg oral capsule (20 sources) Vitamin D Start: 05-03-2024 take 1 capsule by mouth once daily Start: 06-29-2023 End: 04-09-2025 take 1 capsule by mouth once daily Cholecalciferol, Vitamin D3, 125 mcg (5,000 unit) cap Take 1 capsule by mouth once daily. 90 capsule 2 04/10/2025 Active Comment on above: Take 1 capsule by [facility] once daily. dicyclomine hydrochloride 10 mg oral capsule (20 sources) Anticholinergic Start: 10-04-19 End: 04-10-20 take 1 capsule by mouth at bedtime for pain dicyclomine (BENTYL) 10 mg capsule Take 1 capsule by mouth before meals and at bedtime. for abdominal pain 120 capsule 5 04/10/2024 Active Start: 10-04-2022 take 1 capsule by mo uth at bedtime for pain dicyclomine (BENTYL) 10 mg capsule Take 1 capsule by mouth before meals and at bedtime. for abdominal pain 120 capsule 5 10/04/2022 Active Start: 10-04-2022 take 1 capsule by mo uth at bedtime for pain dicyclomine (BENTYL) 10 mg capsule Take 1 capsule by mouth before meals and at bedtime. for abdominal pain 120 capsule 5 10/04/2022 Active Start: 06-11-2021 End: 09-18-2022 take 1 capsule by mouth at bedtime Comment on above: Take 1 capsule by mo uth before meals and at bedtime. for abdominal pain Dulaglutide (20 sources) GLP-1 Receptor Agonist Start: 10-27-2024 Start: 04-29-2023 End: 06-28-2023 inject 0.75 mg by subcutaneous injection every week dulaglutide (TRULICITY) 0.75 mg/0.5 mL pen injector Inject 0.75 mg subcutaneously one time a week. 4 Each 2 04/29/2023 06/28/2023 Discontinued Start: 03-25-2021 End: 07-09-2025 Dulaglutide (Trulicity) 1.5 mg/0.5 mL pen injector Discontinued 1.5 mg SC JOHNSON March 25, 2021 12:00am July 09, 2025 4:49pm dm Comment on above: Inject 1.5 mg subcut aneously one time a week. Inject 0.75 mg subcu taneously one time a week. dulaglutide (TRULICITY) 4.5 mg/0.5 mL pen injector (20 sources) Start: 2024 inject 4.5 mg by subcutaneous injection every week dulaglutide (TRULICITY) 4.5 mg/0.5 mL pen injector Indications: 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) Inject 4.5 mg subcutaneously one time a week. 6 mL 1 05/29/2025 Active Start: 05-02-2025 End: 05-29-2025 inject 4.5 mg by subcutaneous injection every week dulaglutide (TRULICITY) 4.5 mg/0.5 mL pen injector Indications: 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) Inject 4.5 mg subcutaneously one time a week. 6 mL 1 05/02/2025 05/29/2025 Discontinued Start: 05-02-2025 inject 4.5 mg by sub cutaneous injection every week dulaglutide (TRULICITY) 4.5 mg/0.5 mL pen injector Indications: 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) Inject 4.5 mg subcutaneously one time a week. 6 mL 1 05/02/2025 Active Start: 02-09-2025 End: 05-02-2025 inject 4.5 mg by subcutaneous injection every week dulaglutide (TRULICITY) 4.5 mg/0.5 mL pen injector Indications: 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) Inject 4.5 mg subcutaneously one time a week. 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 6 mL 1 02/09/2025 Active Start: 08-11-2024 End: 02-08-2025 inject 4.5 mg by subcutaneous injection every week dulaglutide (TRULICITY) 4.5 mg/0.5 mL pen injector Indications: 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) Inject 4.5 mg subcutaneously one time a week. 6 mL 3 08/11/2024 02/08/2025 Discontinued Start: 08-11-2024 inject 4.5 mg by sub cutaneous injection every week dulaglutide (TRULICITY) 4.5 mg/0.5 mL pen injector Indications: 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) Inject 4.5 mg subcutaneously one time a week. 6 mL 3 08/11/2024 Active Start: 03-31-2024 End: 08-11-2024 inject 4.5 mg by subcutaneous injection every week dulaglutide (TRULICITY) 4.5 mg/0.5 mL pen injector Indications: 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) Inject 4.5 mg subcutaneously one time a week. 6 mL 3 03/31/2024 08/11/2024 Discontinued Start: 03-31-2024 inject 4.5 mg by sub cutaneous injection every week dulaglutide (TRULICITY) 4.5 mg/0.5 mL pen injector Indications: 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) Inject 4.5 mg subcutaneously one time a week. 6 mL 3 03/31/2024 Active Start: 12-10-2023 End: 03-31-2024 inject 4.5 mg by subcutaneous injection every week dulaglutide (TRULICITY) 4.5 mg/0.5 mL pen injector Indications: 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) Inject 4.5 mg subcutaneously one time a week. 4 Each 2 12/10/2023 03/31/2024 Discontinued Start: 12-10-2023 inject 4.5 mg by sub cutaneous injection every week dulaglutide (TRULICITY) 4.5 mg/0.5 mL pen injector Indications: 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) Inject 4.5 mg subcutaneously one time a week. 4 Each 2 12/10/2023 Active Start: 12-10-2023 End: 03-09-2024 inject 4.5 mg by subcutaneous injection every week dulaglutide (TRULICITY) 4.5 mg/0.5 mL pen injector Indications: 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) Inject 4.5 mg subcutaneously one time a week. 4 Each 2 12/10/2023 03/09/2024 Active Comment on above: Inject 4.5 mg subcut aneously one time a week. erythromycin 0.005 mg/mg ophthalmic ointment (1 source) Macrolide, Macrolide Antimicrobial Start: 08-12-2023 End: 08-19-2023 erythromycin (ROMYCIN) 5 mg/gram (0.5 %) ophthalmic ointment Use 1 application in the right eye two times a day for 7 days. 3.5 g 0 08/12/2023 08/19/2023 Active Comment on above: Use 1 application in the right eye two times a day for 7 days. estradiol 0.1 mg/ml vaginal cream (20 sources) Estrogen Start: 03-25-2021 Estradiol Active 3 GM VAGINAL .2X/WEEK March 24, 2021 11:00pm Start: 01-14-2021 End: 01-14-2022 Comment on above: Use 3 g vaginally tw o times a week. fenofibrate 160 mg oral tablet (20 sources) Peroxisome Proliferator Receptor alpha Agonist Start: End: take 1 tablet by mouth once daily Comment on above: Take 1 tablet by emely th once daily. flash glucose scanning reader (FREESTYLE TAYLOR 14 DAY READER) (20 sources) Start: flash glucose scanning reader (FREESTYLE TAYLOR 14 DAY READER) Indications: Uncontrolled type 2 diabetes with neuropathy Use to check blood sugar 4 times daily 1 Each 03/19/2021 Active Start: 03-19-2021 flash glucose scanning reader (FREESTYLE TAYLOR 14 DAY READER) Indications: Uncontrolled type 2 diabetes with neuropathy Use to check blood sugar 4 times daily 1 Each 0 03/19/2021 Active Comment on above: Use to check blood s ugar 4 times daily flash glucose sensor (FREESTYLE TAYLOR 14 DAY SENSOR) kit (20 sources) Start: 05-02-2025 flash glucose sensor (FREESTYLE TAYLOR 14 DAY SENSOR) kit Use to check blood sugar 4 times daily. Please give 2 sensors per refill 2 kit 5 05/02/2025 Active Start: 03-08-2025 End: 05-02-2025 flash glucose sensor (FREEST YLE TAYLOR 14 DAY SENSOR) kit Use to check blood sugar 4 times daily. Please give 2 sensors per refill 2 kit 5 03/08/2025 05/02/2025 Discontinued Start: 03-08-2025 flash glucose sensor (FREESTYLE TAYLOR 14 DAY SENSOR) kit Use to check blood sugar 4 times daily. Please give 2 sensors per refill 2 kit 5 03/08/2025 Active Start: 10-19-2024 End: 03-07-2025 flash glucose sensor (FREEST YLE TAYLOR 14 DAY SENSOR) kit Use to check blood sugar 4 times daily. Please give 2 sensors per refill 2 Kit 5 10/19/2024 03/07/2025 Discontinued Start: 10-19-2024 flash glucose sensor (FREESTYLE TAYLOR 14 DAY SENSOR) kit Use to check blood sugar 4 times daily. Please give 2 sensors per refill 2 Kit 5 10/19/2024 Active Start: 04-11-2024 End: 10-19-2024 flash glucose sensor (FREEST YLE TAYLOR 14 DAY SENSOR) kit Use to check blood sugar 4 times daily. Please give 2 sensors per refill 2 Kit 5 04/11/2024 10/19/2024 Discontinued Start: 04-11-2024 flash glucose sensor (FREESTYLE TAYLOR 14 DAY SENSOR) kit Use to check blood sugar 4 times daily. Please give 2 sensors per refill 2 Kit 5 04/11/2024 Active Start: 09-13-2023 End: 04-11-2024 flash glucose sensor (FREEST YLE TAYLOR 14 DAY SENSOR) kit Use to check blood sugar 4 times daily. Please give 2 sensors per refill 2 Kit 5 09/13/2023 04/11/2024 Discontinued Start: 09-13-2023 flash glucose sensor (FREESTYLE TAYLOR 14 DAY SENSOR) kit Use to check blood sugar 4 times daily. Please give 2 sensors per refill 2 Kit 5 09/13/2023 Active Start: 05-24-2023 End: 09-11-2023 flash glucose sensor (FREEST YLE TAYLOR 14 DAY SENSOR) kit Use to check blood sugar 4 times daily. Please give 2 sensors per refill 2 Kit 5 05/24/2023 09/11/2023 Discontinued Start: 05-24-2023 flash glucose sensor (FREESTYLE TAYLOR 14 DAY SENSOR) kit Use to check blood sugar 4 times daily. Please give 2 sensors per refill 2 Kit 5 05/24/2023 Active Start: 04-19-2023 End: 05-22-2023 flash glucose sensor (FREEST YLE TAYLOR 14 DAY SENSOR) kit Use to check blood sugar 4 times daily. Please give 2 sensors per refill 2 Kit 5 04/19/2023 05/22/2023 Discontinued Start: 04-19-2023 flash glucose sensor (FREESTYLE TAYLOR 14 DAY SENSOR) kit Use to check blood sugar 4 times daily. Please give 2 sensors per refill 2 Kit 5 04/19/2023 Active Start: 12-25-2022 End: 04-19-2023 flash glucose sensor (FREEST YLE TAYLOR 14 DAY SENSOR) kit Use to check blood sugar 4 times daily. Please give 2 sensors per refill 2 Kit 5 12/25/2022 04/19/2023 Discontinued Start: 12-25-2022 flash glucose sensor (FREESTYLE TAYLOR 14 DAY SENSOR) kit Use to check blood sugar 4 times daily. Please give 2 sensors per refill 2 Kit 5 12/25/2022 Active Start: 12-18-2022 flash glucose sensor (FREESTYLE TAYLOR 14 DAY SENSOR) kit Use to check blood sugar 4 times daily. Please give 2 sensors per refill 2 Kit 5 12/18/2022 Active Start: 06-16-2022 End: 12-18-2022 flash glucose sensor (FREEST YLE TAYLOR 14 DAY SENSOR) kit Use to check blood sugar 4 times daily. Please give 2 sensors per refill 2 Kit 5 06/16/2022 12/18/2022 Discontinued Start: 06-16-2022 flash glucose sensor (FREESTYLE TAYLOR 14 DAY SENSOR) kit Use to check blood sugar 4 times daily. Please give 2 sensors per refill 2 Kit 5 06/16/2022 Active Start: 12-29-2021 End: 06-14-2022 flash glucose sensor (FREEST YLE TAYLOR 14 DAY SENSOR) kit Use to check blood sugar 4 times daily. Please give 2 sensors per refill 2 Kit 5 12/29/2021 06/14/2022 Discontinued Start: 12-29-2021 flash glucose sensor (FREESTYLE TAYLOR 14 DAY SENSOR) kit Use to check blood sugar 4 times daily. 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 Please give 2 sensors per refill 2 Kit 5 03/19/2021 Active Comment on above: Use to check blood s ugar 4 times daily. Please give 2 sensors per refill Use to check blood s ugar 4 times daily fluticasone propionate 0.05 mg/actuat metered dose nasal spray (20 sources) Corticosteroid Start: End: take 1-2 spray(s) nasal route once daily as needed fluticasone (FLONASE) 50 mcg/actuation nasal spray Indications: Allergic rhinitis, unspecified seasonality, unspecified trigger Use 1-2 Sprays in each nostril once daily as needed. 1 Each 11/15/2023 Active Start: 10-23-2021 End: 09-20-2022 take 1-2 spray(s) nasal route once daily as needed fluticasone (FLONASE) 50 mcg/actuation nasal spray Indications: Allergic rhinitis, unspecified seasonality, unspecified trigger Use 1-2 Sprays in each nostril once daily as needed. 1 Each 09/21/2022 Active Start: 05-24-2015 End: 07-09-2025 Fluticasone Propionate 1 SPR AY spray,suspension Discontinued 2 NMA NASAL AT BEDTIME May 24, 2015 12:00am July 09, 2025 4:48pm nasal spray Start: 05-24-2015 Fluticasone Pr opionate Active 2 SPRAY NASAL AT BEDTIME May 23, 2015 11:00pm Comment on above: Use 1-2 Sprays in ea ch nostril once daily as needed. furosemide 40 mg oral tablet (20 sources) Loop Diuretic Start: 07-09-2025 take 1 tablet by mouth twice daily Start: 11-28-2024 End: 05-22-2025 take 1 tablet by mouth twice daily furosemide (LASIX) 40 mg tablet Take 1 tablet by mouth two times a day. 180 tablet 1 05/22/2025 Active Start: 02-11-2024 End: 07-09-2025 take 1 tablet by mouth once daily Furosemide 40 mg tablet Discontinued 40 mg PO DAILY 10 October 27, 2024 10:40pm July 09, 2025 4:48pm swelling Start: 11-16-2023 End: 02-11-2024 take 1 tablet by mouth once daily furosemide (LASIX) 20 mg tablet Indications: Leg swelling , Weight gain Take 1 tablet by mouth once daily. 7 tablet 0 02/07/2024 02/11/2024 Discontinued Start: 10-28-2023 End: 11-14-2023 take 1 tablet by mouth once daily furosemide (LASIX) 20 mg tablet Indications: Leg swelling , Weight gain Take 1 tablet by mouth once daily. 7 tablet 10/28/2023 11/14/2023 Discontinued Start: 05-24-2023 End: 10-28-2023 take 1 tablet by mouth once daily furosemide (LASIX) 40 mg tablet Indications: Pericardial effusion , Leg swelling Take 1 tablet by mouth once daily. for leg swelling 30 tablet 1 06/28/2023 10/28/2023 Discontinued Start: 05-17-2023 End: 05-24-2023 take 1 tablet by mouth once daily furosemide (LASIX) 20 mg tablet Indications: Pericardial effusion , Weight gain , Leg swelling Take 1 tablet by mouth once daily. 7 tablet 0 05/17/2023 05/24/2023 Discontinued End: 06-08-2024 take 1 tablet by mouth twice daily furosemide (LASIX) 40 mg tablet Take 40 mg by mouth two times a day. 06/08/2024 Discontinued Comment on above: Take 1 tablet by [facility] once daily. Take 1 tablet by [facility] once daily. for leg swelling gabapentin 800 mg oral tablet (20 sources) Anti-epileptic Agent Start: 11-04-2024 End: 07-08-2025 take 1 tablet by mouth three times daily Start: 05-03-2024 End: 07-09-2025 take 1 tablet by mouth every twelve hours Gabapentin 600 mg tablet Discontinued 600 mg PO Q12H May 03, 2024 12:00am July 09, 2025 4:48pm Start: 02-11-2024 End: 03-28-2025 take 1 tablet by mouth three times daily gabapentin (NEURONTIN) 600 mg tablet Indications: Chronic midline low back pain, unspecified whether sciatica present Take 1 tablet by mouth three times a day for 90 days. 90 tablet 2 08/11/2024 03/28/2025 Discontinued Start: 12-18-2022 End: 05-06-2024 take 1 tablet by mouth twice daily gabapentin (NEURONTIN) 600 mg tablet Indications: Chronic midline low back pain, unspecified whether sciatica present Take 1 tablet by mouth two times a day for 180 days. 60 tablet 5 10/11/2023 11/07/2023 Discontinued Start: 03-25-2021 End: 05-03-2024 take 1 capsule by mouth at bedtime Gabapentin 300 mg capsule Discontinued 300 mg PO AT BEDTIME March 25, 2021 12:00am May 03, 2024 12:23am nerve pain Comment on above: Take 1 capsule by [facility] twice daily for 180 days. Take 1 capsule by [facility] twice daily for 30 days. Take 1 tablet by [facility] twice daily for 90 days. Take 1 tablet by the [facility] twice daily for 180 days. Take 1 tablet by [facility] twice daily for 180 days. Do not start before April 25, 2023. Take 1 tablet by [facility] two times a day for 180 days. 3 ml insulin aspart, human 100 unt/ml pen injector (20 sources) Insulin Analog Start: End: inject 20 [IU] by subcutaneous injection three times daily at mealtime insulin aspart U-100 (NOVOLOG) 100 unit/mL (3 mL) pen Indications: Poorly controlled type 2 diabetes mellitus (HCC) INJECT 20 UNITS SUBCUTANEOUSLY WITH MEALS THREE TIMES A DAY PLUS SLIDING SCALE #2 (add 2 units for every 50 points above 150 mg/dl) BASED ON PRE-MEAL BLOOD SUGAR (MAX: 96 UNITS PER DAY) 30 mL 11 05/02/2025 Active Start: 02-24-2024 End: 06-02-2024 inject 22 [IU] by subcutaneous injection three times daily at mealtime insulin aspart U-100 (NOVOLOG) 100 unit/mL (3 mL) Indications: Poorly controlled type 2 diabetes mellitus (HCC) INJECT 22 UNITS SUBCUTANEOUSLY WITH MEALS THREE TIMES A DAY PLUS SLIDING SCALE #2 (add 2 units for every 50 points above 150 mg/dl) BASED ON PRE-MEAL BLOOD SUGAR (MAX: 96 UNITS PER DAY) 30 mL 11 02/25/2024 06/02/2024 Discontinued (Adjust Sig - Block E-Cancel) Start: 07-29-2023 End: 02-24-2024 inject 20 [IU] by subcutaneous injection three times daily at mealtime insulin aspart U-100 (NOVOLOG) 100 unit/mL (3 mL) Indications: Poorly controlled type 2 diabetes mellitus (HCC) INJECT 20 UNITS SUBCUTANEOUSLY WITH MEALS THREE TIMES A DAY PLUS SLIDING SCALE #2 BASED ON PRE-MEAL BLOOD SUGAR (AROUND 80 UNITS PER DAY) 60 mL 3 07/29/2023 02/24/2024 Discontinued Start: 07-27-2023 End: 07-29-2023 insulin aspart U-100 (NOVOLO G FLEXPEN U-100 INSULIN) 100 unit/mL (3 mL) Indications: Poorly controlled type 2 diabetes mellitus (HCC) inject 20 units with meals three times a day , PLUS SLIDING SCALE #2 BASED ON PRE-MEAL BLOOD SUGAR (AROUND 80 UNITS PER DAY) 60 mL 3 07/27/2023 07/29/2023 Discontinued Start: 09-22-2022 End: 07-24-2023 insulin aspart U-100 (NOVOLO G FLEXPEN U-100 INSULIN) 100 unit/mL (3 mL) inject 20 units with meals three times a day , PLUS SLIDING SCALE #2 BASED ON PRE-MEAL BLOOD SUGAR (AROUND 80 UNITS PER DAY) 15 mL 3 04/20/2023 07/24/2023 Discontinued Start: 06-10-2022 End: 09-20-2022 insulin aspart U-100 (NOVOLO G FLEXPEN U-100 INSULIN) 100 unit/mL (3 mL) Inject 20 units with meals three times daily PLUS sliding scale SS#2 as based on a pre meal blood sugar. ~80 units daily 15 Each 3 06/10/2022 09/20/2022 Discontinued Comment on above: Inject 20 units with meals three times daily PLUS sliding scale SS#2 as based on a pre meal blood sugar. 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 18 mL 5 05/02/2025 Active Start: 03-31-2024 End: 06-02-2024 insulin degludec (TRESIBA FL EXTOUCH U-200) 200 unit/mL (3 mL) injection Inject 86 Units subcutaneously daily at bedtime. 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 45 mL 1 08/29/2021 04/01/2022 Discontinued Start: 07-06-2021 Comment on above: Inject 52 Units subc utaneously daily at bedtime. Inject 62 Units subc utaneously daily at bedtime. Inject 70 Units subc utaneously daily at bedtime. Insulin Degludec (Tresiba Flextouch U-100) 100 unit/mL (3 mL) insulin pen (3 sources) Start: 07-06-2021 Insulin Degludec (Tresiba Flextouch U-100) 100 unit/mL (3 mL) insulin pen Active 52 UNIT SC AT BEDTIME July 06, 2021 12:00am Start: 07-06-2021 Insulin Deglud ec (Tresiba Flextouch U-100) 100 unit/mL (3 mL) insulin pen Active 52 UNIT SC AT BEDTIME July 05, 2021 11:00pm 3 ml insulin lispro 100 unt/ ml pen injector (20 sources) Insulin Analog Start: 07-09-2025 Start: 07-09-2025 Start: 08-29-2021 End: 03-27-2022 inject 8 [IU] by subcutaneous injection three times daily before mealtime insulin lispro (HUMALOG KWIKPEN INSULIN) 100 unit/mL Inject 8 Units subcutaneously three times daily before meals. 15 Pen 3 08/29/2021 03/27/2022 Discontinued Start: 07-21-2021 End: 07-09-2025 Insulin Lispro (Humalog Kwik pen Insulin) 100 unit/mL Insulin Pen Discontinued 8 U SC 3 TIMES DAILY WITH MEALS 0 0 July 21, 2021 12:00am July 09, 2025 5:35pm Start: 07-08-2021 End: 07-21-2021 Insulin Lispro (Humalog Kwik pen Insulin) 100 unit/mL Insulin Pen Discontinued 10 U SC THREE TIMES A DAY July 08, 2021 12:00am July 21, 2021 11:51am diabetes WITH MEALS Start: 05-24-2015 End: 03-30-2021 inject 20 [IU] by subcutaneous injection three times daily Insulin Lispro (Humalog) 100 UNIT/ML solution Discontinued 20 U SQ THREE TIMES A DAY May 24, 2015 12:00am March 30, 2021 9:59am Comment on above: Inject 8 Units subcu taneously three times daily before meals. inject 8 units subcu taneously three times a day before meals ketorolac tromethamine 5 mg/ml ophthalmic solution (20 sources) Nonsteroidal Anti-inflammatory Drug, Cyclooxygenase Inhibitor Start: 07-06-2021 keTORolac (ACULAR) 0.5 % ophthalmic solution EVERY 6 HOURS 07/06/2021 Active Start: 07-06-2021 End: 12-09-2021 take 1 drop(s) into the eye(s) three times daily keTORolac (ACULAR) 0.5 % ophthalmic solution Use 1 Drop in both eyes three times daily. 0 07/06/2021 12/09/2021 Discontinued Start: 07-06-2021 End: 07-09-2025 Ketorolac 0.5 % drops Discon tinued 1 NMA OPHTHALMIC EVERY 6 HOURS July 06, 2021 12:00am July 09, 2025 4:48pm eye Comment on above: Use 1 Drop in both e yes three times daily. levothyroxine sodium 0.3 mg oral tablet (20 sources) l-Thyroxine Start: 07-09-2025 take 1 tablet by mouth once daily Start: 04-10-2025 End: 05-22-2025 levothyroxine (SYNTHROID) 30 0 mcg tablet Indications: Acquired hypothyroidism Take 300 mcg daily but on 1 day of the week take an extra tablet to equal 8 pills a week. 102 tablet 1 05/22/2025 Active Start: 10-27-2024 End: 07-09-2025 take 2 tablets by mouth once daily Levothyroxine 150 mcg tablet Discontinued 300 ug PO DAILY 60 0 October 27, 2024 10:40pm July 09, 2025 4:48pm Start: 05-19-2024 End: 05-19-2025 take 1.5 tablets by mouth once daily before breakfast levothyroxine (SYNTHROID) 200 mcg tablet Indications: Acquired hypothyroidism Take 1.5 tablets by mouth daily before breakfast. 90 tablet 3 05/19/2024 11/04/2024 Discontinued Start: 04-20-2024 End: 10-27-2024 Levothyroxine 150 mcg tablet Discontinued 200 ug PO DAILY April 20, 2024 12:00am October 27, 2024 10:40pm Start: 07-02-2023 End: 07-01-2024 take 1 tablet by mouth once daily before breakfast levothyroxine (SYNTHROID) 200 mcg tablet Indications: Acquired hypothyroidism Take 1 tablet by mouth daily before breakfast. 90 tablet 3 07/02/2023 05/19/2024 Discontinued (Adjust Sig - Block E-Cancel) Start: 04-01-2022 End: 05-13-2023 take 1 tablet by mouth once daily before breakfast levothyroxine (SYNTHROID) 150 mcg tablet Indications: Acquired hypothyroidism Take 1 tablet by mouth daily before breakfast. 30 tablet 11 12/25/2022 05/13/2023 Discontinued Start: 03-25-2021 End: 05-12-2024 take 1 tablet by mouth once daily Levothyroxine 175 mcg tablet Discontinued 175 ug PO DAILY March 25, 2021 12:00am May 03, 2024 12:19am thyroid Comment on above: Take 1 tablet by [facility] once daily. Take on empty stomach. For Thyroid. Take 1 tablet by [facility] daily before breakfast. meloxicam 15 mg oral tablet (20 sources) Nonsteroidal Anti-inflammatory Drug Start: End: take 1 tablet by mouth once daily as needed for pain meloxicam (MOBIC) 15 mg tablet Indications: Chronic midline low back pain, unspecified whether sciatica present , Chronic midline low back pain, unspecified whether sciatica present , Chronic SI joint pain Take 1 tablet by mouth once daily as needed for pain. With food. 30 tablet 5 05/02/2025 Active Start: 10-07-2023 End: 07-19-2024 take 1 tablet by mouth once daily as needed for pain meloxicam (MOBIC) 15 mg tablet Indications: Chronic midline low back pain, unspecified whether sciatica present , Chronic midline low back pain, unspecified whether sciatica present , Chronic SI joint pain Take 1 tablet by mouth once daily as needed for pain. With food. 30 tablet 5 07/19/2024 Active Start: 07-26-2023 take 1 tablet by [facility] once daily as needed for pain meloxicam (MOBIC) 15 mg tablet Indications: Chronic midline low back pain, unspecified whether sciatica present Take 1 tablet by mouth once daily as needed for pain. With food. 30 tablet 1 07/26/2023 Active Start: 04-21-2023 End: 07-24-2023 take 1 tablet by mouth once daily as needed for pain meloxicam (MOBIC) 15 mg tablet Indications: Chronic midline low back pain, unspecified whether sciatica present Take 1 tablet by mouth once daily as needed for pain. With food. 30 tablet 1 04/21/2023 07/24/2023 Discontinued Start: 12-25-2022 End: 04-19-2023 take 1 tablet by mouth once daily as needed for pain meloxicam (MOBIC) 15 mg tablet Indications: Chronic midline low back pain, unspecified whether sciatica present Take 1 tablet by mouth once daily as needed for pain. With food. 30 tablet 1 03/09/2023 04/19/2023 Discontinued Start: 10-13-2022 take 1 tablet by [facility] once daily as needed for pain meloxicam (MOBIC) 15 mg tablet Indications: Chronic midline low back pain, unspecified whether sciatica present Take 1 tablet by mouth once daily as needed for pain. With food. 30 tablet 1 10/13/2022 Active Start: 10-13-2022 End: 09-29-2022 take 1 tablet by mouth once daily as needed for pain meloxicam (MOBIC) 15 mg tablet Indications: Chronic midline low back pain, unspecified whether sciatica present Take 1 tablet by mouth once daily as needed for pain. With food. 30 tablet 1 10/13/2022 09/29/2022 Discontinued Start: 10-13-2022 take 1 tablet by [facility] once daily as needed for pain meloxicam (MOBIC) 15 mg tablet Indications: Chronic midline low back pain, unspecified whether sciatica present Take 1 tablet by mouth once daily as needed for pain. With food. 30 tablet 1 10/13/2022 Active Start: 10-13-2022 End: 09-29-2022 take 1 tablet by mouth once daily as needed for pain meloxicam (MOBIC) 15 mg tablet Indications: Chronic midline low back pain, unspecified whether sciatica present Take 1 tablet by mouth once daily as needed for pain. With food. 30 tablet 1 10/13/2022 09/29/2022 Discontinued Start: 10-13-2022 End: 09-29-2022 take 1 tablet by mouth once daily as needed for pain meloxicam (MOBIC) 15 mg tablet Indications: Chronic midline low back pain, unspecified whether sciatica present Take 1 tablet by mouth once daily as needed for pain. With food. 30 tablet 1 10/13/2022 09/29/2022 Discontinued Start: 10-13-2022 take 1 tablet by [facility] once daily as needed for pain meloxicam (MOBIC) 15 mg tablet Indications: Chronic midline low back pain, unspecified whether sciatica present Take 1 tablet by mouth once daily as needed for pain. With food. 30 tablet 1 10/13/2022 Active Start: 10-13-2022 End: 09-29-2022 take 1 tablet by mouth once daily as needed for pain meloxicam (MOBIC) 15 mg tablet Indications: Chronic midline low back pain, unspecified whether sciatica present Take 1 tablet by mouth once daily as needed for pain. With food. 30 tablet 1 10/13/2022 09/29/2022 Discontinued Start: 10-13-2022 take 1 tablet by [facility] once daily as needed for pain meloxicam (MOBIC) 15 mg tablet Indications: Chronic midline low back pain, unspecified whether sciatica present Take 1 tablet by mouth once daily as needed for pain. With food. 30 tablet 1 10/13/2022 Active Start: 10-13-2022 take 1 tablet by [facility] once daily as needed for pain meloxicam (MOBIC) 15 mg tablet Indications: Chronic midline low back pain, unspecified whether sciatica present Take 1 tablet by mouth once daily as needed for pain. With food. 30 tablet 1 10/13/2022 Active Start: 07-06-2021 End: 07-12-2025 take 1 tablet by mouth once daily as needed for pain Meloxicam 15 mg tablet Discontinued 15 mg PO DAILY as needed for Pain July 06, 2021 12:00am July 12, 2025 2:53pm Start: 03-25-2021 End: 03-30-2021 take 1 tablet by mouth once daily as needed for pain Meloxicam 15 mg tablet Discontinued 15 mg PO DAILY as needed for Pain March 25, 2021 12:00am March 30, 2021 9:59am Comment on above: Take 1 tablet by [facility] once daily as needed for pain. With food. metOLazone 10 mg oral tablet (20 sources) Thiazide-like Diuretic Start: 02-21-2025 End: 06-03-2025 take 1 tablet by mouth once daily in the morning metOLazone (ZAROXOLYN) 10 mg tablet Take 1 tablet by mouth once daily for 5 days. Take this in the morning. 5 tablet 05/29/2025 Active Start: 01-08-2025 End: 01-18-2025 take 1 tablet by mouth once daily metOLazone (ZAROXOLYN) 10 mg tablet Take 1 tablet by mouth once daily for 10 days. 5 tablet 1 01/08/2025 Active Start: 11-28-2024 End: 01-04-2025 take 1 tablet by mouth once daily metOLazone (ZAROXOLYN) 10 mg tablet Take 1 tablet by mouth once daily for 10 days. 5 tablet 1 12/25/2024 01/04/2025 Active Miscellaneous Medical Supply (BLOOD PRESSURE CUFF) (20 sources) Start: 04-28-2021 Miscellaneous Medical Supply (BLOOD PRESSURE CUFF) Indications: Essential hypertension 1 Each as needed. Blood pressure Monitor and Cuff, use as directed. Dx: I10 Hypertension 1 Each 04/28/2021 Active Start: 04-28-2021 Miscellaneous Medical Supply (BLOOD PRESSURE CUFF) Indications: Essential hypertension 1 Each as needed. Blood pressure Monitor and Cuff, use as directed. Dx: I10 Hypertension 1 Each 0 04/28/2021 Active Comment on above: 1 Each as needed. Bl ood pressure Monitor and Cuff, use as directed. Dx: I10 Hypertension mupirocin 0.02 mg/mg topical ointment (1 source) RNA Synthetase Inhibitor Antibacterial Start: 2 End: 2 mupirocin (BACTROBAN) 2 % ointment Apply to affected area three times daily for 5 days. 30 g 0 02/25/2022 03/02/2022 Active Comment on above: Apply to affected ar ea three times daily for 5 days. Humphrey-3 Fatty Acids-Vitamin E (3 sources) Start: take 1 capsule by mouth once daily Humphrey-3 Fatty Acids-Vitamin E Active 1 CAP PO DAILY March 25, 2021 12:00am Start: 03-25-2021 take 1 capsule by [facility] once daily Humphrey-3 Fatty Acids-Vitamin E Active 1 CAP PO DAILY March 24, 2021 11:00pm omeprazole 40 mg delayed release oral capsule (20 sources) Proton Pump Inhibitor Start: 05-19-2023 End: 05-02-2025 take 1 capsule by mouth once daily Comment on above: Take 1 capsule by [facility] once daily. take 1 capsule by [facility] once daily OXYGEN, HOME THERAPY, (20 sources) OXYGEN, HOME THERAPY, Inhale as instructed as directed. Uses at 2 l/m via nasal cannula during the day and 4 l/m at night Active OXYGEN, HOME THE RAPY, Inhale as instructed as directed. Uses at 2 l/m via nasal cannula during the day and 4 l/m at night 0 Active Comment on above: Inhale as instructed as directed. Uses at 2 l/m via nasal cannula during the day and 4 l/m at night phenylephrine hydrochloride 25 mg/ml ophthalmic solution (8 sources) alpha-1 Adrenergic Agonist Start: 08-12-2023 End: 08-13-2023 PHENYLephrine 2.5 % 1 Drop (AK-DILATE, KINJAL-SYNEPHRINE) Start: 12-14-2022 End: 12-15-2022 PHENYLephrine 2.5 % 1 Drop ( AK-DILATE) Start: 09-14-2022 End: 09-15-2022 PHENYLephrine 2.5 % 1 Drop ( AK-DILATE, KINJAL-SYNEPHRINE) Start: 06-15-2022 End: 06-16-2022 PHENYLephrine 2.5 % 1 Drop ( AK-DILATE, KINJAL-SYNEPHRINE) Start: 12-25-2021 End: 12-26-2021 PHENYLephrine 2.5 % 1 Drop ( AK-DILATE, KINJAL-SYNEPHRINE) polyethylene glycol 400 4 mg /ml / propylene glycol 3 mg/ml ophthalmic solution (20 sources) Start: 07-09-2025 Start: 05-11-2023 End: 05-31-2026 PEG 400-propylene glycol (SY STANE ULTRA) 0.4-0.3 % ophthalmic solution Use 1 drop in both eyes four times daily. 15 mL 4 05/21/2025 05/31/2026 Active Start: 05-11-2023 End: 06-08-2024 peg 400-propylene glycol (SY STANE GEL) 0.4-0.3 % drpg Use 1 Drop in both eyes daily at bedtime. 10 mL 2 06/22/2023 11/14/2023 Discontinued Start: 03-16-2023 End: 05-20-2024 PEG 400-propylene glycol (SY STANE ULTRA) 0.4-0.3 % ophthalmic solution Use 1 Drop in both eyes four times daily. 15 mL 4 03/16/2023 05/11/2023 Discontinued Start: 03-16-2023 End: 05-11-2023 peg 400-propylene glycol (SY STANE GEL) 0.4-0.3 % drpg Use 1 Drop in both eyes daily at bedtime. 10 mL 2 03/16/2023 05/11/2023 Discontinued Comment on above: Use 1 Drop in both e yes four times daily. Use 1 Drop in both e yes daily at bedtime. potassium chloride 10 meq extended release oral tablet (20 sources) Start: 07-09-2025 take 1 tablet by mouth once daily Start: 02-21-2025 End: 05-22-2025 take 1 tablet by mouth once daily potassium chloride (K-TAB) 10 mEq tablet Indications: Hypokalemia Take 1 tablet by mouth once daily. 90 tablet 3 05/22/2025 Active Start: 11-28-2024 End: 01-07-2025 take 1 tablet by mouth once daily potassium chloride (K-TAB) 10 mEq tablet Take 1 tablet by mouth once daily. 5 tablet 1 01/08/2025 Active Start: 10-28-2023 End: 05-16-2024 take 1 capsule by mouth once daily potassium chloride SR (MICRO-K) 10 mEq CR capsule Indications: Leg swelling , Weight gain Take 1 capsule by mouth once daily. 7 capsule 10/28/2023 05/16/2024 Discontinued Start: 07-26-2023 End: 10-28-2023 take 1 capsule by mouth twice daily potassium chloride SR (MICRO-K) 10 mEq CR capsule take 1 capsule by mouth twice a day 60 capsule 0 09/04/2023 10/28/2023 Discontinued Start: 05-24-2023 End: 07-24-2023 take 1 capsule by mouth twice daily potassium chloride SR (MICRO-K) 10 mEq CR capsule Take 1 capsule by mouth twice daily. 7 capsule 0 06/22/2023 07/24/2023 Discontinued Comment on above: Take 1 capsule by mo [facility] twice daily. Take 1 capsule by mo [facility] two times a day. take 1 capsule by mo [facility] twice a day Take 1 capsule by mo [facility] once daily. prednisoLONE acetate 10 mg/ml ophthalmic suspension (20 sources) Corticosteroid Start: 07-06-2021 prednisoLONE acetate (PRED FORTE) 1 % ophthalmic suspension EVERY 6 HOURS 07/06/2021 Active Start: 07-06-2021 End: 12-25-2021 prednisoLONE acetate (PRED F ORTE, ECONOPRED PLUS) 1 % ophthalmic suspension Use 1 Drop in both eyes three times daily. 0 07/06/2021 12/25/2021 Discontinued (Course of therapy completed) Start: 07-06-2021 End: 07-09-2025 Prednisolone Acetate 1 % binu ps,suspension Discontinued 1 NMA OPHTHALMIC EVERY 6 HOURS July 06, 2021 12:00am July 09, 2025 4:46pm eye Comment on above: Use 1 Drop in both e yes three times daily. proparacaine hydrochloride 5 mg/ml ophthalmic solution (6 sources) Local Anesthetic Start: 08-12-2023 End: 08-13-2023 proparacaine 0.5 % 1 Drop (ALCAINE) Start: 12-14-2022 End: 12-15-2022 proparacaine 0.5 % 1 Drop (A LCAINE) Start: 09-14-2022 End: 09-15-2022 proparacaine 0.5 % 1 Drop (A LCAINE) Start: 06-15-2022 End: 06-16-2022 proparacaine 0.5 % 1 Drop (A LCAINE) rosuvastatin calcium 10 mg oral tablet (20 sources) HMG-CoA Reductase Inhibitor Start: 05-22-2021 End: 04-10-2025 take 1 tablet by mouth once daily Comment on above: Take 1 tablet by the [facility] daily at bedtime. sulfamethoxazole 800 mg / trimethoprim 160 mg oral tablet (10 sources) Dihydrofolate Reductase Inhibitor Antibacterial, Sulfonamide Antimicrobial Start: 02-11-2024 End: 02-18-2024 take 1 tablet by mouth twice daily sulfamethoxazo le-trimethopri m (BACTRIM DS) 800-160 mg per tablet Indications: Lower urinary tract symptoms Take 1 tablet by mouth two times a day for 7 days. 14 tablet 0 02/11/2024 02/18/2024 Active Start: 08-24-2022 End: 08-29-2022 take 1 tablet by mouth twice daily sulfamethoxazole-trimethoprim (BACTRIM D S) 800-160 mg per tablet Take 1 tablet by mouth twice daily for 5 days. 10 tablet 0 08/24/2022 08/29/2022 Active Start: 03-17-2021 End: 03-30-2021 Sulfamethoxazole-Trimethopri m (Bactrim Ds) 800-160 mg tablet Discontinued 1 {tbl} PO TWICE A DAY 14 0 March 17, 2021 12:00am March 30, 2021 9:59am Comment on above: Take 1 tablet by the [facility] twice daily for 5 days. tropicamide 10 mg/ml ophthalmic solution (8 sources) Anticholinergic Start: 08-12-2023 End: 08-13-2023 tropicamide 1 % 1 Drop (MYDRIACYL) Start: 12-14-2022 End: 12-15-2022 tropicamide 1 % 1 Drop (MYDR IACYL) Start: 09-14-2022 End: 09-15-2022 tropicamide 1 % 1 Drop (MYDR IACYL) Start: 06-15-2022 End: 06-16-2022 tropicamide 1 % 1 Drop (MYDR IACYL) Start: 12-25-2021 End: 12-26-2021 tropicamide 1 % 1 Drop (MYDR IACYL) vitamin e 180 mg oral capsul e (20 sources) Start: 03-25-2021 take 1 capsule by [facility] once daily End: 06-28-2023 take 1 capsule by mouth once daily Vitamin E, dl, acetate, (VITAMIN E) 400 unit capsule Take 400 Units by mouth once daily. 0 06/28/2023 Discontinued Comment on above: Take 400 Units by [facility] once daily. Completed/Discontinued Medications Medication Drug Class(es) Dates Sig (Normalized) Sig (Original) betamethasone 0.5 mg/ml / clotrimazole 10 mg/ml topical cream (20 sources) Azole Antifungal, Corticosteroid Start: 01-25-2018 End: 06-08-2024 clotrimazole-beta methasone (LOTRISONE) cream Indications: Rash Apply 1 application to affected area twice daily. X 2 weeks. 45 g 12/25/2022 06/08/2024 Discontinued Comment on above: Apply 1 application to affected area twice daily. X 2 weeks. cephalexin 500 mg oral capsule (5 sources) Cephalosporin Antibacterial Start: 10-27-2024 End: 07-09-2025 take 1 capsule by mouth every twelve hours Cephalexin 500 mg capsule Discontinued 500 mg PO EVERY 12 HOURS 10 October 27, 2024 1:00am July 09, 2025 4:44pm Start: 09-19-2024 End: 10-27-2024 take 1 capsule by mouth every six hours Cephalexin 500 mg capsule Discontinued 500 mg PO EVERY 6 HOURS 28 September 19, 2024 1:00am October 27, 2024 6:37pm Start: 02-25-2022 End: 03-02-2022 take 1 capsule by mouth twice daily cephALEXin (KEFLEX) 500 mg capsule Take 1 capsule by mouth twice daily for 5 days. 10 capsule 0 02/25/2022 03/02/2022 Active Comment on above: Take 1 capsule by [facility] twice daily for 5 days. ciprofloxacin 500 mg oral tablet (2 sources) Quinolone Antimicrobial Start: 2023 End: 2023 take 1 tablet by mouth twice daily Ciprofloxacin Hcl 500 mg tablet Discontinued 500 mg PO TWICE A DAY 14 April 28, 2024 12:00am May 04, 2024 12:14pm dexamethasone 6 mg oral tablet (10 sources) Corticosteroid Start: 2020 End: 2020 take 1 tablet by mouth once daily Dexamethasone (Decadron) 6 mg tablet Discontinued 6 mg PO DAILY July 08, 2021 9:03am July 21, 2021 11:50am health maintenance dulaglutide (TRULICITY) 3 mg/0.5 mL pen injector (20 sources) Start: 2023 End: 2023 inject 3 mg by subcutaneous injection every week dulaglutide (TRULICITY) 3 mg/0.5 mL pen injector Indications: 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) Inject 3 mg subcutaneously one time a week. 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 4 Each 2 07/22/2023 10/20/2023 Active Start: 08-14-2022 End: 10-21-2022 inject 3 mg by subcutaneous injection every week dulaglutide (TRULICITY) 3 mg/0.5 mL pen injector Inject 3 mg subcutaneously one time a week. 4 Each 5 08/14/2022 10/21/2022 Discontinued Start: 08-14-2022 inject 3 mg by subcu taneous injection every week dulaglutide (TRULICITY) 3 mg/0.5 mL pen injector Inject 3 mg subcutaneously one time a week. 4 Each 5 08/14/2022 Active Start: 06-10-2022 End: 08-14-2022 inject 3 mg by subcutaneous injection every week dulaglutide (TRULICITY) 3 mg/0.5 mL pen injector Inject 3 mg subcutaneously one time a week. 4 Each 5 06/10/2022 08/14/2022 Discontinued Start: 06-10-2022 inject 3 mg by subcu taneous injection every week dulaglutide (TRULICITY) 3 mg/0.5 mL pen injector Inject 3 mg subcutaneously one time a week. 4 Each 5 06/10/2022 Active Comment on above: Inject 3 mg subcutan eously one time a week. empagliflozin 25 mg oral tablet (20 sources) Sodium-Glucose Cotransporter 2 Inhibitor Start: 12-30-19 End: 07-12-20 take 1 tablet by mouth once daily Empagliflozin (Jardiance) 25 mg tablet Discontinued 25 mg PO DAILY May 03, 2024 12:00am July 09, 2025 4:48pm On Hold: Resume on 06/04/24. Please discuss with your PCP prior to restarting. Start: 12-30-2020 End: 12-27-2021 take 1 tablet by mouth once daily at breakfast empagliflozin (JARDIANCE) 25 mg tablet Indications: Uncontrolled type 2 diabetes with neuropathy Take 1 tablet by mouth daily with breakfast. 90 tablet 3 12/30/2020 12/27/2021 Discontinued Comment on above: Take 1 tablet by emely th daily with breakfast. EYE DROPS DISPENSER MISC (20 sources) End: 07-03-2022 EYE DROPS DISPENSER MISC cystene 0 07/03/2022 Discontinued EYE DROPS DISPEN SER MISC cystene 0 Active Comment on above: cystene hydroCHLOROthiazide 25 mg oral tablet (20 sources) Thiazide Diuretic Start: End: hydroCHLOROthiazide 25 mg tablet Indications: Generalized edema Take 0.5 tablets by mouth once daily. ON HOLD FOLLOWING HOSPITAL DISCHARGE 04/2024 30 tablet 3 06/08/2024 06/14/2024 Discontinued Start: 05-16-2024 End: 06-08-2024 take 1 tablet by mouth once daily hydroCHLOROthiazide 25 mg tablet Indications: Generalized edema Take 1 tablet by mouth once daily. 30 tablet 3 05/16/2024 06/08/2024 Discontinued Start: 01-06-2023 End: 05-16-2024 take 1 tablet by mouth once daily hydroCHLOROthiazide 50 mg tablet Indications: Generalized edema Take 1 tablet by mouth once daily. 30 tablet 2 10/25/2023 02/07/2024 Discontinued Start: 12-18-2022 End: 01-06-2023 take 1 tablet by mouth once daily hydroCHLOROthiazide 25 mg tablet Indications: Generalized edema Take 1 tablet by mouth once daily. 0 12/18/2022 01/06/2023 Discontinued Start: 05-24-2015 End: 07-09-2025 take 1 capsule by mouth once daily Hydrochlorothiazide 12.5 mg capsule Discontinued 12.5 mg PO DAILY July 06, 2021 12:00am July 09, 2025 4:48pm diuretic On Hold: Resume on 06/04/24. Please discuss with your PCP prior to restarting. Comment on above: Take 1 capsule by mo [facility] once daily. Take 1 tablet by emely th once daily. take 1 tablet by emely once daily hydrocortisone 25 mg/ml topical cream (20 sources) Corticosteroid Start: End: hydrocortisone 2.5 % cream Indications: Swelling of both hands , Contact dermatitis due to chemicals Apply 1 application to affected area twice daily. Location: hands and chest 20 g 05/11/2023 06/08/2024 Discontinued Comment on above: Apply 1 application to affected area twice daily. Location: hands and chest hydrOXYzine hydrochloride 25 mg oral tablet (20 sources) Antihistamine Start: End: take 25-50 mg by mouth at bedtime as needed for sleep Hydroxyzine Hcl 25 mg tablet Discontinued 25 - 50 mg PO AT BEDTIME NEEDED as needed for sleep April 20, 2024 12:00am July 09, 2025 4:48pm Start: 02-15-2023 End: 02-07-2024 take 25-50 mg by mouth every twenty-four hours as needed hydrOXYzine HCl (ATARAX) 25 mg tablet Take 1-2 tablets by mouth at bedtime as needed. 30 tablet 3 02/07/2024 Active Start: 01-14-2021 End: 02-13-2023 take 25-50 mg by mouth every twenty-four hours as needed hydrOXYzine HCl (ATARAX) 25 mg tablet Take 1-2 tablets by mouth at bedtime as needed. 30 tablet 3 03/11/2022 Active Comment on above: Take 1-2 tablets by mouth at bedtime as needed. 3 ml insulin glargine 100 unt/ml pen injector (10 sources) Insulin Analog Start: End: inject 5 [IU] by subcutaneous injection once daily Insulin Glargine (Basaglar Kwikpen U-100 Insulin) 100 UNIT/ML insulin pen Discontinued 5 U SQ DAILY 0 0 March 30, 2021 10:05am July 06, 2021 10:39am Start: 01-15-2018 End: 03-30-2021 Insulin Glargine (Danaaglvinita sparks U-100) 100 UNIT/ML insulin pen Discontinued 72 U SQ DAILY January 15, 2018 12:00am March 30, 2021 10:05am levoFLOXacin 500 mg oral tablet (4 sources) Quinolone Antimicrobial Start: 08-11-2022 End: 04-20-2024 take 1 tablet by mouth once daily Levofloxacin 500 mg tablet Discontinued 500 mg PO DAILY 4 0 August 11, 2022 1:00am April 20, 2024 6:59pm start on 08/12/22 lisinopril 2.5 mg oral tablet (20 sources) Angiotensin Converting Enzyme Inhibitor Start: 03-17-2021 End: 07-09-2025 take 1 tablet by mouth once daily Lisinopril 2.5 mg tablet Discontinued 2.5 mg PO DAILY July 06, 2021 12:00am July 09, 2025 4:48pm blood pressure On Hold: Resume on 06/04/24. Please discuss with your PCP prior to restarting. End: 06-08-2024 take 1 tablet by mouth once daily lisinopril (ZESTRIL) 10 mg tablet Take 10 mg by mouth once daily. 06/08/2024 Discontinued Comment on above: Take 1 tablet by emely th once daily. omega-3 fatty acids (FISH OIL CONCENTRATE ORAL) (20 sources) End: 06-28-2023 omega-3 fatty acids (FISH OIL CONCENTRATE ORAL) Take by mouth. 0 06/28/2023 Discontinued omega-3 fatty ac ids (FISH OIL CONCENTRATE ORAL) Take by mouth. 0 Active Comment on above: Take by mouth. Humphrey-3 Fatty Acids-Vitamin E (FISH OIL) 1,000 mg cap (20 sources) take 1 capsule by mouth twice daily Humphrey-3 Fatty Acids-Vitamin E (FISH OIL) 1,000 mg cap Take 1 capsule by mouth twice daily. 0 Active Comment on above: Take 1 capsule by mo [facility] twice daily. Humphrey-3 Fatty Acids-Vitamin E 1,000 mg cap (20 sources) End: 06-28-2023 take 1 capsule by mouth twice daily Humphrey-3 Fatty Acids-Vitamin E 1,000 mg cap Take 1 capsule by mouth twice daily. 0 06/28/2023 Discontinued take 1 capsule by mouth twice da johan Humphrey-3 Fatty Acids-Vitamin E 1,000 mg cap Take 1 capsule by mouth twice daily. 0 Active Comment on above: Take 1 capsule by mo [facility] twice daily. Humphrey-3 Fatty Acids-Vitamin E 1,000 mg Capsule (2 sources) Start: 03-25-20 End: 04-20-20 Humphrey-3 Fatty Acids-Vitamin E 1,000 mg Capsule Discontinued 1 NMA PO DAILY March 25, 2021 12:00am April 20, 2024 7:03pm supplement ondansetron 4 mg disintegrating oral tablet (5 sources) Serotonin-3 Receptor Antagonist Start: 07-06-20 End: 07-09-20 take 1 tablet by mouth every eight hours as needed for nausea and vomiting Ondansetron 4 mg tablet,disintegratin g Discontinued 4 mg PO Q8H as needed for nausea and vomiting 10 0 July 06, 2021 12:00am July 09, 2025 4:47pm perflutren lipid microspheres 1.3 mL in NaCl (PF) 0.9% 10 mL injection (DEFINITY) (20 sources) Start: 05-17-20 End: 12-10-19 perflutren lipid microspheres 1.3 mL in NaCl (PF) 0.9% 10 mL injection (DEFINITY) Start: 05-17-2023 End: 08-15-2024 perflutren lipid microsphere s 1.3 mL in NaCl (PF) 0.9% 10 mL injection (DEFINITY) Start: 01-25-2023 End: 05-17-2023 perflutren lipid microsphere s 1.3 mL in NaCl (PF) 0.9% 10 mL injection (DEFINITY) Start: 01-25-2023 End: 04-25-2024 perflutren lipid microsphere s 1.3 mL in NaCl (PF) 0.9% 10 mL injection (DEFINITY) Start: 01-15-2023 End: 05-17-2023 perflutren lipid microsphere s 1.3 mL in NaCl (PF) 0.9% 10 mL injection (DEFINITY) Start: 01-15-2023 End: 04-15-2024 perflutren lipid microsphere s 1.3 mL in NaCl (PF) 0.9% 10 mL injection (DEFINITY) Start: 12-18-2022 End: 01-15-2023 perflutren lipid microsphere s 1.3 mL in NaCl (PF) 0.9% 10 mL injection (DEFINITY) Start: 12-18-2022 End: 03-18-2024 perflutren lipid microsphere s 1.3 mL in NaCl (PF) 0.9% 10 mL injection (DEFINITY) polyethylene glycol 3350 [id number] mg powder for oral solution (1 source) Osmotic Laxative Start: 11-22-2017 End: 12-09-2021 polyethylene glycol 3350 (MIRALAX, GLYCOLAX) 17 gram/dose powder Indications: Lower abdominal pain Drink a mix of 1 scoop in 8oz of water/beverage once daily as needed for constipation. 1 Bottle 5 11/22/2017 12/09/2021 Discontinued Comment on above: Drink a mix of 1 sco op in 8oz of water/beverage once daily as needed for constipation. predniSONE 20 mg oral tablet (1 source) Start: 08-06-2021 End: 12-09-2021 predniSONE (DELTASONE) 20 mg tablet Take two daily for 5 days, then one daily for 5 days then 1/2 daily for 10 days 20 tablet 0 08/06/2021 12/09/2021 Discontinued Comment on above: Take two daily for 5 days, then one daily for 5 days then 1/2 daily for 10 days promethazine hydrochloride 25 mg oral tablet (20 sources) Phenothiazine Start: 04-28-2024 End: 07-09-2025 take 1 tablet by mouth every six hours as needed for nausea Promethazine 25 mg tablet Discontinued 25 mg PO EVERY 6 HOURS NEEDED as needed for Nausea 10 April 28, 2024 12:00am July 09, 2025 4:46pm pyridostigmine bromide 60 mg oral tablet (20 sources) Start: 07-03-2022 End: 07-03-2023 take 1 tablet by mouth three times daily pyridostigmine (MESTINON) 60 mg tablet Take 1 tablet by mouth three times daily. 90 tablet 11 07/03/2022 07/03/2023 Comment on above: Take 1 tablet by emely three times daily. 125 ml sodium chloride 9 mg/ml prefilled syringe (20 sources) Start: 12-18-2022 End: 08-15-2024 sodium chloride 0.9 % (flush) 10 mL (BD POSIFLUSH) tamsulosin hydrochloride 0.4 mg oral capsule (4 sources) alpha-Adrenergic Mitchell Start: 05-03-2024 End: 07-09-2025 take 1 capsule by mouth once daily Tamsulosin 0.4 mg capsule Discontinued 0.4 mg PO DAILY May 03, 2024 12:00am July 09, 2025 4:46pm Start: 02-11-2024 End: 02-14-2024 take 1 capsule by mouth once daily tamsulosin (FLOMAX) 0.4 mg Indications: Lower urinary tract symptoms Take 1 capsule by mouth once daily. 30 capsule 0 02/11/2024 02/14/2024 Discontinued tirzepatide (MOUNJARO) 10 mg/0.5 mL pen injector (20 sources) Start: 01-15-2023 End: 04-29-2023 inject 10 mg by subcutaneous injection every week tirzepatide (MOUNJARO) 10 mg/0.5 mL pen injector Inject 10 mg subcutaneously one time a week. 4 Each 01/15/2023 04/29/2023 Discontinued Start: 01-15-2023 inject 10 mg by subc utaneous injection every week tirzepatide (MOUNJARO) 10 mg/0.5 mL pen injector Inject 10 mg subcutaneously one time a week. 4 Each 01/15/2023 Active Start: 11-11-2022 End: 01-15-2023 inject 10 mg by subcutaneous injection every week tirzepatide (MOUNJARO) 10 mg/0.5 mL pen injector Inject 10 mg subcutaneously one time a week. 4 Each 11/11/2022 01/15/2023 Discontinued Start: 11-11-2022 inject 10 mg by subc utaneous injection every week tirzepatide (MOUNJARO) 10 mg/0.5 mL pen injector Inject 10 mg subcutaneously one time a week. 4 Each 11/11/2022 Active Start: 10-21-2022 End: 11-10-2022 inject 10 mg by subcutaneous injection every week tirzepatide (MOUNJARO) 10 mg/0.5 mL pen injector Inject 10 mg subcutaneously one time a week. 4 Each 10/21/2022 11/10/2022 Discontinued Start: 10-21-2022 inject 10 mg by subc utaneous injection every week tirzepatide (MOUNJARO) 10 mg/0.5 mL pen injector Inject 10 mg subcutaneously one time a week. 4 Each 10/21/2022 Active Comment on above: Inject 10 mg subcuta neously one time a week. torsemide 20 mg oral tablet (1 source) Loop Diuretic Start: 5 End: take 1 tablet by mouth once daily torsemide (DEMADEX) 20 mg tablet Take 1 tablet by mouth once daily. 30 tablet 2 11/28/2024 11/28/2024 Discontinued Problems Active Problems Problem Classification Problem Date Documented Da te Episodic/Chronic Administrative/social admission (1 source) Other specified counseling; Translations: [Other specified counseling] Onset: 5 Episodic Allergic reactions (2 sources) Contact dermatitis caused by chemical; Translations: [Unspecified contact dermatitis due to other chemical products] Episodic Blindness and vision defects (2 sources) Eyes sensitive to light; Translations: [Visual discomfort, right eye] Episodic Calculus of urinary tract (20 sources) Kidney stone; Translations: [Calculus of kidney] Onset: 4 09-29-2021 Episodic Cancer; other and unspecified primary (7 sources) Malignant tumor of thymus; Translations: [Malignant neoplasm of thymus] Onset: 5 Chronic Cancer; other and unspecified primary (1 source) Malignant neoplasm of thymus; Translations: [Malignant neoplasm of thymus (HCC)] Onset: 5 Chronic Cataract (20 sources) Bilateral pseudophakia; Translations: [Presence of intraocular lens] Onset: 1 Resolved: 1 Chronic Coagulation and hemorrhagic disorders (20 sources) Platelet count below reference range; Translations: [Thrombocytopenia, unspecified] Onset: 5 06-24-2015 Chronic Congestive heart failure; nonhypertensive (20 sources) Chronic diastolic heart failure; Translations: [Chronic diastolic (congestive) heart failure] Onset: 5 10-16-2024 Chronic Deficiency and other anemia (5 sources) Anemia; Translations: [Anemia, unspecified] 08-19-2022 Episodic Deficiency and other anemia (1 source) Anemia, unspecified; Translations: [Anemia, unspecified] Episodic Deficiency and other anemia (2 sources) Chronic anemia; Translations: [Anemia, unspecified] 09-27-2024 Episodic Diabetes mellitus with complications (20 sources) Type 2 diabetes mellitus; Translations: [Type 2 diabetes mellitus with moderate nonproliferative diabetic retinopathy without macular edema, bilateral] Onset: 5 Chronic Diabetes mellitus without complication (4 sources) Insulin treated type 2 diabetes mellitus; Translations: [Type 2 diabetes mellitus without complications] 05-07-2024 Chronic Diseases of white blood cells (6 sources) Leukocytosis; Translations: [Elevated white blood cell count, unspecified] Chronic Disorders of lipid metabolism (20 sources) Hyperlipidemia; Translations: [Hyperlipidemia, unspecified] Onset: 4 02-06-2015 Chronic E Codes: Fall (6 sources) Fall; Translations: [Unspecified fall, initial encounter] 05-25-2023 Episodic Esophageal disorders (20 sources) Gastro-esophageal reflux disease with esophagitis; Translations: [Gastroesophageal reflux disease with esophagitis without hemorrhage] Onset: 3 Chronic Essential hypertension (20 sources) Essential hypertension; Translations: [Essential (primary) hypertension] Onset: 5 05-23-2021 Chronic Fracture of upper limb (2 sources) Closed fracture of upper end of humerus; Translations: [Other nondisplaced fracture of upper end of left humerus, initial encounter for closed fracture] 06-26-2024 Episodic Heart valve disorders (1 source) Heart murmur; Translations: [Cardiac murmur, unspecified] Episodic Hypertension with complications and secondary hypertension (4 sources) Chronic kidney disease due to hypertension; Translations: [Hypertensive chronic kidney disease with stage 1 through stage 4 chronic kidney disease, or unspecified chronic kidney disease] Onset: 5 08-01-2024 Chronic Immunizations and screening for infectious disease (1 source) Encounter for immunization; Translations: [Encounter for immunization] Onset: 5 Episodic Inflammation; infection of eye (except that caused by tuberculosis or sexually transmitteddisease) (1 source) Superficial keratitis of right eye; Translations: [Unspecified superficial keratitis, right eye] 08-12-2023 Episodic Menopausal disorders (2 sources) Atrophic vaginitis; Translations: [Postmenopausal atrophic vaginitis] Chronic Nonspecific chest pain (7 sources) Chest pain; Translations: [Chest pain, unspecified] Onset: 5 05-19-2023 Episodic Nutritional deficiencies (4 sources) Vitamin D deficiency; Translations: [Vitamin D deficiency, unspecified] 05-24-2023 Chronic Open wounds of extremities (1 source) Injury of little toe; Translations: [Laceration without foreign body of left lesser toe(s) without damage to nail, initial encounter] Episodic Osteoarthritis (20 sources) Osteoarthritis of hip; Translations: [Osteoarthritis of hip, unspecified] Onset: 4 04-04-2014 Chronic Other aftercare (1 source) Encounter for palliative care; Translations: [Encounter for palliative care] Onset: 5 Episodic Other circulatory disease (8 sources) Low blood pressure; Translations: [Hypotension, unspecified] 07-29-2021 Episodic Other congenital anomalies (20 sources) Microstomia; Translations: [Microstomia] Onset: 5 06-24-2015 Chronic Other connective tissue disease (2 sources) Swelling of hand; Translations: [Other specified soft tissue disorders] Episodic Other connective tissue disease (12 sources) Swelling of lower limb; Translations: [Other specified soft tissue disorders] 05-17-2023 Episodic Other connective tissue disease (2 sources) Pain in right arm; Translations: [Pain in right arm] 05-24-2023 Episodic Other connective tissue disease (2 sources) Pain in right hand; Translations: [Pain in right hand] 05-24-2023 Episodic Other connective tissue disease (1 source) Myofascial pain; Translations: [Myalgia, other site] 07-01-2023 Episodic Other connective tissue disease (1 source) Myalgia, other site; Translations: [Myofascial pain] Onset: 3 Episodic Other connective tissue disease (4 sources) Swelling of bilateral lower limbs; Translations: [Other specified soft tissue disorders] 07-09-2025 Episodic Other eye disorders (8 sources) Ptosis of right upper eyelid; Translations: [Unspecified ptosis of right eyelid] Episodic Other eye disorders (1 source) Bilateral epiphora of eyes; Translations: [Unspecified epiphora, bilateral] Episodic Other eye disorders (1 source) Bilateral myogenic ptosis of eyes; Translations: [Myogenic ptosis of bilateral eyelids] Episodic Other eye disorders (1 source) Excess skin of eyelid; Translations: [Dermatochalasis of right upper eyelid] Episodic Other eye disorders (3 sources) Disorder of lacrimal gland; Translations: [Dry eye syndrome of bilateral lacrimal glands] Episodic Other gastrointestinal disorders (2 sources) Diarrhea; Translations: [Diarrhea, unspecified] 04-28-2024 Episodic Other infections; including parasitic (2 sources) Personal history of other infectious and parasitic diseases; Translations: [History of COVID-19] Episodic Other injuries and conditions due to external causes (5 sources) Injury of left rotator cuff; Translations: [Unspecified injury of muscle(s) and tendon(s) of the rotator cuff of left shoulder, subsequent encounter] 05-16-2024 Episodic Other injuries and conditions due to external causes (1 source) Injury of humerus; Translations: [Unspecified injury of left shoulder and upper arm, subsequent encounter] 06-08-2024 Episodic Other injuries and conditions due to external causes (2 sources) Injury of rotator cuff; Translations: [Unspecified injury of muscle(s) and tendon(s) of the rotator cuff of unspecified shoulder, initial encounter] 05-02-2024 Episodic Other liver diseases (5 sources) High lipase level in serum; Translations: [Abnormal levels of other serum enzymes] 08-19-2022 Episodic Other liver diseases (1 source) Abnormal levels of other serum enzymes; Translations: [Other nonspecific abnormal serum enzyme levels] Episodic Other lower respiratory disease (11 sources) Hypoxia; Translations: [Hypoxemia] 07-29-2021 Episodic Other lower respiratory disease (7 sources) Dyspnea; Translations: [Dyspnea, unspecified] 04-09-2023 Episodic Other lower respiratory disease (20 sources) Dyspnea on exertion; Translations: [Other forms of dyspnea] Onset: 2 12-01-2023 Episodic Other lower respiratory disease (1 source) Shortness of breath; Translations: [Shortness of breath] Onset: 5 Episodic Other nervous system disorders (20 sources) Myasthenia gravis; Translations: [Myasthenia gravis without (acute) exacerbation] Onset: 2 Chronic Other nervous system disorders (2 sources) Other chronic pain; Translations: [Chronic midline low back pain, unspecified whether sciatica present] Onset: 3 Chronic Other nervous system disorders (1 source) Myasthenia gravis without (acute) exacerbation; Translations: [Myasthenia gravis (HCC)] Onset: 2 Chronic Other nutritional; endocrine; and metabolic disorders (20 sources) Body mass index 40+ - severely obese; Translations: [Morbid (severe) obesity due to excess calories] Onset: 3 12-18-2022 Chronic Other nutritional; endocrine; and metabolic disorders (2 sources) Severe obesity; Translations: [Morbid (severe) obesity due to excess calories] 03-26-2023 Chronic Other nutritional; endocrine; and metabolic disorders (1 source) Hypoalbuminemia; Translations: [Other disorders of plasma-protein metabolism, not elsewhere classified] 11-28-2024 Chronic Other nutritional; endocrine; and metabolic disorders (1 source) Other disorders of plasma-protein metabolism, not elsewhere classified; Translations: [Hypoalbuminemia] Onset: 5 Chronic Other nutritional; endocrine; and metabolic disorders (8 sources) Weight gain; Translations: [Abnormal weight gain] 05-17-2023 Episodic Other nutritional; endocrine; and metabolic disorders (3 sources) Weight increased; Translations: [Abnormal weight gain] 11-28-2024 Episodic Other nutritional; endocrine; and metabolic disorders (2 sources) H/O: hypothyroidism; Translations: [Personal history of other endocrine, nutritional and metabolic disease] 05-07-2024 Episodic Other screening for suspected conditions (not mental disorders or infectious disease) (20 sources) Patient encounter status; Translations: [Encounter for screening mammogram for malignant neoplasm of breast] Onset: 5 Episodic Other skin disorders (1 source) Eruption; Translations: [Rash and other nonspecific skin eruption] Episodic Other skin disorders (1 source) Localized swelling of left lower limb; Translations: [Localized swelling, mass and lump, left lower limb] 11-28-2024 Episodic Other upper respiratory disease (2 sources) Allergic rhinitis; Translations: [Allergic rhinitis, unspecified] Chronic Pleurisy; pneumothorax; pulmonary collapse (1 source) Pleural effusion, not elsewhere classified; Translations: [Pleural effusion] Onset: 5 Episodic Residual codes; unclassified (5 sources) Other specified health status; Translations: [Failure of outpatient treatment] 04-07-2021 Episodic Residual codes; unclassified (9 sources) Edema, generalized; Translations: [Generalized edema] Episodic Residual codes; unclassified (1 source) Edema of foot; Translations: [Localized edema] 11-28-2024 Episodic Residual codes; unclassified (4 sources) Edema; Translations: [Edema, unspecified] 05-22-2025 Episodic Residual codes; unclassified (2 sources) Edema, unspecified; Translations: [Edema, unspecified] Onset: 5 Episodic Respiratory failure; insufficiency; arrest (adult) (20 sources) Chronic hypoxemic respiratory failure; Translations: [Chronic respiratory failure with hypoxia] Onset: 2 12-09-2021 Chronic Respiratory failure; insufficiency; arrest (adult) (5 sources) Acute respiratory failure; Translations: [Acute respiratory failure with hypoxia] 07-29-2021 Episodic Screening and history of mental health and substance abuse codes (1 source) Tobacco use and exposure - finding 12-12-2024 Chronic Screening and history of mental health and substance abuse codes (18 sources) Ex-cigarette smoker; Translations: [Personal history of nicotine dependence] Onset: 5 Episodic Spondylosis; intervertebral disc disorders; other back problems (3 sources) Lumbar spondylosis; Translations: [Spondylosis without myelopathy or radiculopathy, lumbar region] Onset: 3 07-01-2023 Chronic Spondylosis; intervertebral disc disorders; other back problems (20 sources) Chronic low back pain; Translations: [Chronic midline low back pain, unspecified whether sciatica present] Onset: 3 Episodic Superficial injury; contusion (2 sources) Contusion of left elbow; Translations: [Contusion of left elbow, initial encounter] 05-02-2024 Episodic Thyroid disorders (20 sources) Hypothyroidism; Translations: [Hypothyroidism, unspecified] Onset: 4 02-06-2015 Chronic Unclassified (3 sources) Post-COVID chronic dyspnea 12-06-2024 Unclassified (1 source) APPOINTMENT WITH [facility] Unclassified (1 source) Chronic midline low back pain, unspecified whether sciatica present; Translations: [Chronic midline low back pain, unspecified whether sciatica present] Onset: 3 Unclassified (1 source) Post-COVID chronic dyspnea; Translations: [Post-COVID chronic dyspnea] Onset: 5 Urinary tract infections (16 sources) Urinary tract infectious disease; Translations: [Urinary tract infection, site not specified] Episodic Viral infection (20 sources) COVID-19; Translations: [Pneumonia due to other virus not elsewhere classified] Onset: 1 08-05-2021 Episodic Past or Other Problems Problem Classification Problem Date Documented Da te Episodic/Chronic Abdominal pain (3 sources) Left lower quadrant pain; Translations: [Left lower quadrant pain] Onset: 10-20-2024 09-27-2024 Episodic Acute and unspecified renal failure (16 sources) Injury of kidney; Translations: [Acute kidney failure, unspecified] Onset: 10-16-2024 07-29-2021 Episodic Fluid and electrolyte disorders (7 sources) Hyponatremia; Translations: [Hypo-osmolality and hyponatremia] Onset: 11-28-2024 11-28-2024 Episodic Genitourinary symptoms and ill-defined conditions (20 sources) Dysuria; Translations: [Dysuria] Onset: 07-30-2022 Episodic Malaise and fatigue (8 sources) Asthenia; Translations: [Other malaise] Onset: 11-28-2024 05-12-2024 Episodic Other aftercare (1 source) intermediate (current) use of insulin; Translations: [Type 2 diabetes mellitus with diabetic neuropathy, with long-term current use of insulin (HCC)] Onset: 07-30-2022 Episodic Other aftercare (1 source) Encounter for therapeutic drug level monitoring; Translations: [Encounter for therapeutic drug monitoring] Onset: 03-28-2025 Episodic Other eye disorders (20 sources) H/O: R cataract extraction; Translations: [Cataract extraction status, right eye] Onset: 06-03-2021 06-03-2021 Episodic Other gastrointestinal disorders (20 sources) Esophageal dysphagia; Translations: [Other dysphagia] Onset: 10-19-2022 Episodic Other lower respiratory disease (20 sources) Other forms of dyspnea; Translations: [Other respiratory abnormalities] Onset: 12-09-2021 12-09-2021 Episodic Other nutritional; endocrine; and metabolic disorders (20 sources) Obesity; Translations: [Obesity, unspecified] Onset: 06-24-2015 Resolved: 05-16-2024 06-24-2015 Chronic Other nutritional; endocrine; and metabolic disorders (20 sources) Obese class II; Translations: [Obesity, unspecified] Onset: 01-25-2023 Resolved: 05-16-2024 Chronic Other nutritional; endocrine; and metabolic disorders (1 source) Abnormal weight gain; Translations: [Weight gain] Onset: 11-28-2024 Episodic Other skin disorders (1 source) Localized swelling, mass and lump, left lower limb; Translations: [Localized swelling of left lower extremity] Onset: 11-28-2024 Episodic Maru-; endo-; and myocarditis; cardiomyopathy (except that caused by tuberculosis or sexually transmitted disease) (20 sources) Pericardial effusion; Translations: [Pericardial effusion] Onset: 01-25-2023 Episodic Residual codes; unclassified (20 sources) Noncompliance with treatment; Translations: [Patient's noncompliance with other medical treatment and regimen] Onset: 10-17-2014 11-06-2014 Episodic Residual codes; unclassified (20 sources) Bilateral lower limb edema; Translations: [Localized edema] Onset: 07-30-2022 Episodic Residual codes; unclassified (2 sources) Localized edema; Translations: [Bilateral leg edema] Onset: 07-30-2022 Episodic Unclassified (1 source) Patient encounter status 11-11-2024 Results Test Name Value Interpretation Reference Range Facility [facility] -------- SAMANTHA ROMERO ([id number]) 1965 F Date Time Provider Department 08/13/25 MARYSOL REYNOSO [facility]CSIND During your visit today, we recorded the following information about you: Marysol Reynoso OT/Ignacia 08/13/2025 5:39 PM Signed Pt seen for home care visit today with the abnormal vital: Blood Sugar and weight Per agency guideline providers are notified when any vital is out of parameter Pls advise home care if you would like individual parameters for this pt. Blood sugar 218 fastiing Weight 171 on 08/13/25 on RN start of care on 08/08/25 = 163. Pt does not have electronic scale so accurate weight is hard to obtain Home care agency vital guidelines for reference Temp < 96.8 or > 100.4 F HR < 60 or > 100 at rest Systolic BP < 95 or >140 at rest Diastolic BP > 89 at rest Respiration < 12 or > 24 at rest Pulse Ox < 92% at rest Fasting blood glucose < 70 or > 130 Random blood glucose < 70 or > 180 INR < 2 or > 3 Pain > 7/10 or greater than patient target Weight for HF gain 2 # in a day or 5# in a week. Allergies As of Date: 08/13/2025 Noted Allergy Reaction METFORMIN 09/10/2016 6 - Diarrhea Comments: Diarrhea every time takes, even with ER dose OXYCODONE 07/07/2021 8 - GI Upset PERCOCET (OXYCODONE-ACETAMINOPHEN )05/07/2014 8 - GI Upset Comments: and off balance Date Reviewed: 08/08/2025 Reviewed by: Susan Guardado, RN - Fully Assessed Reason for Visit: Home Care [[id number]] Cmt: vitals Prescriptions as of 08/13/2025 - omeprazole (PRILOSEC) 40 mg capsule Take 1 capsule by mouth once daily. - furosemide (LASIX) 40 mg tablet Take 1 tablet by mouth two times a day. Take with breakfast and after lunch - levothyroxine (SYNTHROID) 300 mcg tablet Take 300 mcg daily but on 1 day of the week take an extra tablet to equal 8 pills a week. - dicyclomine (BENTYL) 10 mg capsule Take 1 capsule by mouth before meals and at bedtime. for abdominal pain - gabapentin (NEURONTIN) 800 mg tablet Take 1 tablet by mouth three times a day for 90 days. Patient should start on July 08, 2025. - dulaglutide (TRULICITY) 4.5 mg/0.5 mL pen injector Inject 4.5 mg subcutaneously one time a week. - insulin degludec (TRESIBA FLEXTOUCH U-200) 200 unit/mL (3 mL) injection Inject 80 Units subcutaneously daily at bedtime. - HYDROcodone-acetaminophe n (NORCO) 5-325 mg per tablet Take 1 tablet by mouth four times a day as needed for pain for up to 30 days. Patient should start on September 10, 2025. - HYDROcodone-acetaminophe n (NORCO) 5-325 mg per tablet Take 1 tablet by mouth four times a day as needed for pain for up to 30 days. Patient should start on August 11, 2025. - potassium chloride (K-TAB) 10 mEq tablet Take 1 tablet by mouth once daily. - PEG 400-propylene glycol (SYSTANE ULTRA) 0.4-0.3 % ophthalmic solution Use 1 drop in both eyes four times daily. - insulin aspart U-100 (NOVOLOG) 100 unit/mL (3 mL) pen INJECT 20 UNITS SUBCUTANEOUSLY WITH MEALS THREE TIMES A DAY PLUS SLIDING SCALE #2 (add 2 units for every 50 points above 150 mg/dl) BASED ON PRE-MEAL BLOOD SUGAR (MAX: 96 UNITS PER DAY) - insulin degludec (TRESIBA FLEXTOUCH U-200) 200 unit/mL (3 mL) injection Inject 80 Units subcutaneously daily at bedtime. - flash glucose sensor (FREESTYLE TAYLOR 14 DAY SENSOR) kit Use to check blood sugar 4 times daily. Please give 2 sensors per refill - blood sugar diagnostic (BLOOD GLUCOSE TEST) test strip Test blood sugar(s) 4 times daily. Dx: Type 2 DM - Controlled E11.9 Insulin: Yes - Cholecalciferol, Vitamin D3, 125 mcg (5,000 unit) cap Take 1 capsule by mouth once daily. - blood sugar diagnostic (FREESTYLE LITE STRIPS) test strip Test blood sugar(s) 4 times daily. Dx: Other DM Code E11.40 Insulin: Yes - rosuvastatin (CRESTOR) 10 mg tablet Take 1 tablet by mouth daily at bedtime. - Fenofibrate (LOFIBRA) 160 mg tablet Take 1 tablet by mouth once daily. - keTORolac (ACULAR) 0.5 % ophthalmic solution EVERY 6 HOURS - prednisoLONE acetate (PRED FORTE) 1 % ophthalmic suspension EVERY 6 HOURS - insulin degludec (TRESIBA FLEXTOUCH U-200) 200 unit/mL (3 mL) injection Inject 80 Units subcutaneously daily at bedtime. - hydrOXYzine HCl (ATARAX) 25 mg tablet Take 1-2 tablets by mouth at bedtime as needed. - Insulin [place], Disposable, (DROPLET PEN NEEDLE) 31 gauge x 3/16 use 1 PEN NEEDLE to inject MEDICATION subcutaneously four times a day - fluticasone (FLONASE) 50 mcg/actuation nasal spray Use 1-2 Sprays in each nostril once daily as needed. - blood sugar diagnostic (BLOOD GLUCOSE TEST) test strip Test blood sugar(s) 4 times daily. Dx: Other DM Code E11.40 Insulin: Yes - OXYGEN, HOME THERAPY, Inhale 3.5 L/min as instructed as directed. Uses at 2 l/m via nasal cannula during the day and 4 l/m at night Patient should start on August 08, 2025. - Blood-Glucose Meter monitoring kit (more content not included)... Normal [facility] Telephone ([facility]CSIND) -------- SAMANTHA ROMERO ([id number]) 1965 F Date Time Provider Department 08/13/25 SARINA ADAMS [facility]CSIND During your visit today, we recorded the following information about you: Justine Kimball 08/13/2025 11:41 AM Signed There has been a delay in service for Home Care PT Evaluation for this patient due to schedule conflict. Patient was notified on 08/13/25. Thank you for this referral, please contact us with any questions. Justine Kimball Allergies As of Date: 08/13/2025 Noted Allergy Reaction METFORMIN 09/10/2016 6 - Diarrhea Comments: Diarrhea every time takes, even with ER dose OXYCODONE 07/07/2021 8 - GI Upset PERCOCET (OXYCODONE-ACETAMINOPHEN )05/07/2014 8 - GI Upset Comments: and off balance Date Reviewed: 08/08/2025 Reviewed by: Susan Guardado, RN - Fully Assessed Reason for Visit: Home Care [[id number]] Cmt: DELAY IN SERVICE - PT Prescriptions as of 08/13/2025 - omeprazole (PRILOSEC) 40 mg capsule Take 1 capsule by mouth once daily. - furosemide (LASIX) 40 mg tablet Take 1 tablet by mouth two times a day. Take with breakfast and after lunch - levothyroxine (SYNTHROID) 300 mcg tablet Take 300 mcg daily but on 1 day of the week take an extra tablet to equal 8 pills a week. - dicyclomine (BENTYL) 10 mg capsule Take 1 capsule by mouth before meals and at bedtime. for abdominal pain - gabapentin (NEURONTIN) 800 mg tablet Take 1 tablet by mouth three times a day for 90 days. Patient should start on July 08, 2025. - dulaglutide (TRULICITY) 4.5 mg/0.5 mL pen injector Inject 4.5 mg subcutaneously one time a week. - insulin degludec (TRESIBA FLEXTOUCH U-200) 200 unit/mL (3 mL) injection Inject 80 Units subcutaneously daily at bedtime. - HYDROcodone-acetaminophe n (NORCO) 5-325 mg per tablet Take 1 tablet by mouth four times a day as needed for pain for up to 30 days. Patient should start on September 10, 2025. - HYDROcodone-acetaminophe n (NORCO) 5-325 mg per tablet Take 1 tablet by mouth four times a day as needed for pain for up to 30 days. Patient should start on August 11, 2025. - potassium chloride (K-TAB) 10 mEq tablet Take 1 tablet by mouth once daily. - PEG 400-propylene glycol (SYSTANE ULTRA) 0.4-0.3 % ophthalmic solution Use 1 drop in both eyes four times daily. - insulin aspart U-100 (NOVOLOG) 100 unit/mL (3 mL) pen INJECT 20 UNITS SUBCUTANEOUSLY WITH MEALS THREE TIMES A DAY PLUS SLIDING SCALE #2 (add 2 units for every 50 points above 150 mg/dl) BASED ON PRE-MEAL BLOOD SUGAR (MAX: 96 UNITS PER DAY) - insulin degludec (TRESIBA FLEXTOUCH U-200) 200 unit/mL (3 mL) injection Inject 80 Units subcutaneously daily at bedtime. - flash glucose sensor (RedbeaconSTYLE TAYLOR 14 DAY SENSOR) kit Use to check blood sugar 4 times daily. Please give 2 sensors per refill - blood sugar diagnostic (BLOOD GLUCOSE TEST) test strip Test blood sugar(s) 4 times daily. Dx: Type 2 DM - Controlled E11.9 Insulin: Yes - Cholecalciferol, Vitamin D3, 125 mcg (5,000 unit) cap Take 1 capsule by mouth once daily. - blood sugar diagnostic (FREESTYLE LITE STRIPS) test strip Test blood sugar(s) 4 times daily. Dx: Other DM Code E11.40 Insulin: Yes - rosuvastatin (CRESTOR) 10 mg tablet Take 1 tablet by mouth daily at bedtime. - Fenofibrate (LOFIBRA) 160 mg tablet Take 1 tablet by mouth once daily. - keTORolac (ACULAR) 0.5 % ophthalmic solution EVERY 6 HOURS - prednisoLONE acetate (PRED FORTE) 1 % ophthalmic suspension EVERY 6 HOURS - insulin degludec (TRESIBA FLEXTOUCH U-200) 200 unit/mL (3 mL) injection Inject 80 Units subcutaneously daily at bedtime. - hydrOXYzine HCl (ATARAX) 25 mg tablet Take 1-2 tablets by mouth at bedtime as needed. - Insulin [place], Disposable, (DROPLET PEN NEEDLE) 31 gauge x 3/16 use 1 PEN NEEDLE to inject MEDICATION subcutaneously four times a day - fluticasone (FLONASE) 50 mcg/actuation nasal spray Use 1-2 Sprays in each nostril once daily as needed. - blood sugar diagnostic (BLOOD GLUCOSE TEST) test strip Test blood sugar(s) 4 times daily. Dx: Other DM Code E11.40 Insulin: Yes - OXYGEN, HOME THERAPY, Inhale 3.5 L/min as instructed as directed. Uses at 2 l/m via nasal cannula during the day and 4 l/m at night Patient should start on August 08, 2025. - Blood-Glucose Meter monitoring kit Check sugars daily and as needed (Freestyle Lite is what she has had) - Lancets lancets Test blood sugar(s) 4 times daily. Dx: E11.9 Insulin: Yes - Miscellaneous Medical Supply (BLOOD PRESSURE CUFF) 1 Each as needed. Blood pressure Monitor and Cuff, use as directed. Dx: I10 Hypertension - flash glucose scanning reader (FREESTYLE TAYLOR 14 DAY READER) Use to check blood sugar 4 times daily - estradiol (ESTRACE) 0.01 % (0.1 mg/gram) vaginal cream Use 3 g vaginally two times a week. Meds Comments as of 08/08/2025: 08/08/2025: severe drug drug i (more content not included)... Normal [facility] Telephone ([facility]CSIND) -------- SAMANTHA ROMERO ([id number]) 1965 F Date Time Provider Department 08/13/25 RADHA AZAR [facility]NA During your visit today, we recorded the following information about you: Radha Azar RN 08/13/2025 3:41 PM Signed Unable to locate pt today for a visit with home care nurse. Will try again this week Allergies As of Date: 08/13/2025 Noted Allergy Reaction METFORMIN 09/10/2016 6 - Diarrhea Comments: Diarrhea every time takes, even with ER dose OXYCODONE 07/07/2021 8 - GI Upset PERCOCET (OXYCODONE-ACETAMINOPHEN )05/07/2014 8 - GI Upset Comments: and off balance Date Reviewed: 08/08/2025 Reviewed by: Susan Guardado, COLT - Fully Assessed Reason for Visit: Home Care [[id number]] Cmt: Update: Missed visit Prescriptions as of 08/13/2025 - omeprazole (PRILOSEC) 40 mg capsule Take 1 capsule by mouth once daily. - furosemide (LASIX) 40 mg tablet Take 1 tablet by mouth two times a day. Take with breakfast and after lunch - levothyroxine (SYNTHROID) 300 mcg tablet Take 300 mcg daily but on 1 day of the week take an extra tablet to equal 8 pills a week. - dicyclomine (BENTYL) 10 mg capsule Take 1 capsule by mouth before meals and at bedtime. for abdominal pain - gabapentin (NEURONTIN) 800 mg tablet Take 1 tablet by mouth three times a day for 90 days. Patient should start on July 08, 2025. - dulaglutide (TRULICITY) 4.5 mg/0.5 mL pen injector Inject 4.5 mg subcutaneously one time a week. - insulin degludec (TRESIBA FLEXTOUCH U-200) 200 unit/mL (3 mL) injection Inject 80 Units subcutaneously daily at bedtime. - HYDROcodone-acetaminophe n (NORCO) 5-325 mg per tablet Take 1 tablet by mouth four times a day as needed for pain for up to 30 days. Patient should start on September 10, 2025. - HYDROcodone-acetaminophe n (NORCO) 5-325 mg per tablet Take 1 tablet by mouth four times a day as needed for pain for up to 30 days. Patient should start on August 11, 2025. - potassium chloride (K-TAB) 10 mEq tablet Take 1 tablet by mouth once daily. - PEG 400-propylene glycol (SYSTANE ULTRA) 0.4-0.3 % ophthalmic solution Use 1 drop in both eyes four times daily. - insulin aspart U-100 (NOVOLOG) 100 unit/mL (3 mL) pen INJECT 20 UNITS SUBCUTANEOUSLY WITH MEALS THREE TIMES A DAY PLUS SLIDING SCALE #2 (add 2 units for every 50 points above 150 mg/dl) BASED ON PRE-MEAL BLOOD SUGAR (MAX: 96 UNITS PER DAY) - insulin degludec (TRESIBA FLEXTOUCH U-200) 200 unit/mL (3 mL) injection Inject 80 Units subcutaneously daily at bedtime. - flash glucose sensor (FREESTYLE TAYLOR 14 DAY SENSOR) kit Use to check blood sugar 4 times daily. Please give 2 sensors per refill - blood sugar diagnostic (BLOOD GLUCOSE TEST) test strip Test blood sugar(s) 4 times daily. Dx: Type 2 DM - Controlled E11.9 Insulin: Yes - Cholecalciferol, Vitamin D3, 125 mcg (5,000 unit) cap Take 1 capsule by mouth once daily. - blood sugar diagnostic (FREESTYLE LITE STRIPS) test strip Test blood sugar(s) 4 times daily. Dx: Other DM Code E11.40 Insulin: Yes - rosuvastatin (CRESTOR) 10 mg tablet Take 1 tablet by mouth daily at bedtime. - Fenofibrate (LOFIBRA) 160 mg tablet Take 1 tablet by mouth once daily. - keTORolac (ACULAR) 0.5 % ophthalmic solution EVERY 6 HOURS - prednisoLONE acetate (PRED FORTE) 1 % ophthalmic suspension EVERY 6 HOURS - insulin degludec (TRESIBA FLEXTOUCH U-200) 200 unit/mL (3 mL) injection Inject 80 Units subcutaneously daily at bedtime. - hydrOXYzine HCl (ATARAX) 25 mg tablet Take 1-2 tablets by mouth at bedtime as needed. - Insulin Boerne, Disposable, (DROPLET PEN NEEDLE) 31 gauge x 3/16 use 1 PEN NEEDLE to inject MEDICATION subcutaneously four times a day - fluticasone (FLONASE) 50 mcg/actuation nasal spray Use 1-2 Sprays in each nostril once daily as needed. - blood sugar diagnostic (BLOOD GLUCOSE TEST) test strip Test blood sugar(s) 4 times daily. Dx: Other DM Code E11.40 Insulin: Yes - OXYGEN, HOME THERAPY, Inhale 3.5 L/min as instructed as directed. Uses at 2 l/m via nasal cannula during the day and 4 l/m at night Patient should start on August 08, 2025. - Blood-Glucose Meter monitoring kit Check sugars daily and as needed (Freestyle Lite is what she has had) - Lancets lancets Test blood sugar(s) 4 times daily. Dx: E11.9 Insulin: Yes - Miscellaneous Medical Supply (BLOOD PRESSURE CUFF) 1 Each as needed. Blood pressure Monitor and Cuff, use as directed. Dx: I10 Hypertension - flash glucose scanning reader (FREESTYLE TAYLOR 14 DAY READER) Use to check blood sugar 4 times daily - estradiol (ESTRACE) 0.01 % (0.1 mg/gram) vaginal cream Use 3 g vaginally two times a week. Meds Comments as of 08/08/2025: 08/08/2025: severe drug drug interaction: Drug-Drug: dicyclomine, and potassium chloride COLT Vega 06/02/22 The medications are managed by this patient by: PATIENT Que Garcia (more content not included)... Normal [facility] Basic metabolic 2000 panelon 08-09-2025 Anion gap [Moles/Vol] 9 mmol/L Normal 8-15 [facility] Comment on above: Order Comment: Speci men Type: BLOOD SPECIMENOrdering Facility: [facility] Address: [address] [place] [address] Performed By: #### 3 024-7, [facility], 53371-8 ####[facility] LABCLIA [id number] [place] [address] [place] Calcium [Mass/Vol] 8.8 mg/dL Normal 8.5-10.2 [facility] Comment on above: Order Comment: Speci men Type: BLOOD SPECIMENOrdering Facility: [facility] Address: [address] [place] [address] Performed By: #### 3 024-7, [facility], 46984-9 ####[facility] LABCLIA [id number] [place] [address] [place] Chloride [Moles/Vol] 105 mmol/L Normal 98-107 [facility] Comment on above: Order Comment: Speci men Type: BLOOD SPECIMENOrdering Facility: [facility] Address: [address] [place] [address] Performed By: #### 3 024-7, [facility], 38258-3 ####[facility] LABCLIA [id number] [place] [address] [place] CO2 [Moles/Vol] 30 mmol/L Normal 22-[address] [facility] Comment on above: Order Comment: Speci men Type: BLOOD SPECIMENOrdering Facility: [facility] Address: [address] [place] [address] Performed By: #### 3 024-7, [facility], 79359-0 ####[facility] LABCLIA [id number] [place] [address] [place] Creatinine [Mass/Vol] 1.49 mg/dL High 0.58-0.96 [facility] Comment on above: Order Comment: Speci men Type: BLOOD SPECIMENOrdering Facility: [facility] Address: [address] [place] [address] Performed By: #### 3 024-7, [facility], 01195-8 ####[facility] LABCLIA [id number] [place] [address] [place] eGFRcr SerPlBld CKD-EPI 2020 40 mL/min/1.73m??? Low >=[address] [facility] Comment on above: Order Comment: Speci men Type: BLOOD SPECIMENOrdering Facility: [facility] Address: [address] [place] [address] Result Comment: Angelica mated Glomerular Filtration Rate (eGFR) is calculated using the 2020 CKD-EPI creatinine equation. This equation utilizes serum creatinine, sex, and age as parameters. The creatinine assay has traceable calibration to isotope dilution-mass spectrometry. Refer to KDIGO guidelines for clinical interpretation. In patients with unstable renal function, e.g. those with acute kidney injury, the eGFR may not accurately reflect actual GFR. Performed By: #### 3 024-7, [facility], 71367-6 ####[facility] LABCLIA [id number] [place] [address] [place] Glucose [Mass/Vol] 187 mg/dL High 74-99 [facility] Comment on above: Order Comment: Speci men Type: BLOOD SPECIMENOrdering Facility: [facility] Address: [address] [place] [address] Result Comment: The [place] Diabetes Association (ADA) provides guidance for cutoff values for fasting glucose and random glucose. The ADA defines fasting as no caloric intake for at least 8 hours. Fasting plasma glucose results between 100 to 125 mg/dL indicate increased risk for diabetes (prediabetes). Fasting plasma glucose results greater than or equal to 126 mg/dL meet the criteria for diagnosis of diabetes. In the absence of unequivocal hyperglycemia, results should be confirmed by repeat testing. In a patient with classic symptoms of hyperglycemia or hyperglycemic crisis, random plasma glucose results greater than or equal to 200 mg/dL meet the criteria for diagnosis of diabetes. Reference: Standards of Medical Care in Diabetes 2016, [place] Diabetes Association. Diabetes Care. 2016.39(Suppl 1). Performed By: #### 3 024-7, [facility], 20142-9 ####[facility] LABCLIA [id number] [place] [address] [place] Potassium [Moles/Vol] 4.2 mmol/L Normal 3.7-5.1 [facility] Comment on above: Order Comment: Katrina men Type: BLOOD SPECIMENOrdering Facility: [facility] Address: [address] [place] [address] Performed By: #### 3 024-7, [facility], 05325-4 ####[facility] LABCLIA [id number] [place] [address] [place] Sodium [Moles/Vol] 144 mmol/L Normal 136-144 [facility] Comment on above: Order Comment: Speci men Type: BLOOD SPECIMENOrdering Facility: [facility] Address: [address] [place] [address] Performed By: #### 3 024-7, [facility], 11652-8 ####[facility] LABCLIA [id number] [place] [address] [place] Urea nitrogen [Mass/Vol] 36 mg/dL High 7-[address] [facility] Comment on above: Order Comment: Speci men Type: BLOOD SPECIMENOrdering Facility: [facility] Address: [address] [place] [address] Performed By: #### 3 024-7, [facility], 60525-0 ####[facility] LABCLIA [id number] [address] [place] CNOVon 08-09-2025 CNOV Office Visit (INTMWS ) -------- ANYSAMANTHA Manning ([id number]) 1965 F Date Time Provider Department 08/09/25 2:40 PM DENISE ALVARADO INTMWS During your visit today, we recorded the following information about you: Pulse Respiration Blood pressure 72/minute 16/minute 145/77 Denise Alvarado APRN.QUALITY ASSURANCE PRACTICE MANAGER 08/09/2025 3:28 PM Signed Subjective Patient ID: Samantha is a 59 year old female who presents for No chief complaint on file.. HPI Samantha Romero for hospital discharge follow-up visit. She was admitted to [facility] July 09 through July 12, 2025 for acute on chronic heart failure with preserved ejection fraction. Discharge diagnoses acute on chronic heart failure with preserved ejection fraction, acute on chronic diastolic heart failure fluid overloaded acute and chronic respiratory failure with hypoxia. She presented to the ER from [employer] due to increased shortness of breath on exertion weight gain and abnormal findings on CT scan. Exam in ER showed pitting edema and weight gain dyspnea on exertion and hypoxia at 84% on nasal cannula. Chest x-ray completed showed cardiomegaly and vascular congestion with interstitial edema. BNP noted to be 237. She was treated with IV Lasix. Hospitalist contacted for admission. She improved clinically with IV diuresis. Her status improved she was able to ambulate with improved symptoms. Switch to oral diuretics which she tolerated without decompensation overnight, concern that exacerbation was secondary to noncompliance with medical therapy missing doses of Lasix, lack of fluid restriction as well as undertreated hypothyroid. She was advised to follow-up with lab work in 2 to 3 days with primary care. She was advised to take Lasix 40 mg twice daily. She was advised to weigh yourself daily and limit sodium intake. Advised to take levothyroxine on an empty stomach. She was advised to stop meloxicam to preserve kidney function. Jardiance was taken off medication list due to not taking it. Today reports Edema: - reports persistent edema in lower extremities, though improved since discharge. - states taking Lasix BID; sttes has not run out of medication, however no fill noted in last 90 days on EPIC review. - Reports weighed 268 lbs yesterday, 271 lbs today. She weighed herself for the first time yesterday she reports due to her not having a scale - Using a walker due to difficulty ambulating and leg weakness and heaviness. Dyspnea: - No change in dyspnea since hospital discharge. - However notes oxygen requirement decreased to 2 L/min. Hoarseness: - Onset of hoarseness; denies recent illness. She reports she did stop taking omeprazole. Diabetes Mellitus: - Blood glucose levels: 230 mg/dL last night, 226 mg/dL this morning. - Insulin regimen: 86 units of long-acting insulin daily, 10 units with meals, plus sliding scale coverage. - Taking Trulicity. Hypothyroidism: - previously non-adherent to thyroid medication. Chronic Back Pain: - Chronic back pain managed with Reynolds and gabapentin. - Pain exacerbated by prolonged standing, such as doing dishes. - Requests refill for Reynolds, due on the or . - Reports some relief with current pain management regimen. Hypothyroidism. TSH Date Value 07/03/2025 17.200 mIU/L 03/28/2025 60.600 mIU/L 04/10/2021 2.340 uU/mL 04/10/2020 1.210 uU/mL ) DIABETES MELLITUS: Patient's last HgA1C was Hemoglobin A1C (%) Date Value 07/03/2025 8.5 03/28/2025 10.0 04/10/2021 8.3 10/25/2020 10.3 Hemoglobin A1C (POCT) (%) Date Value 10/21/2022 11.0 ) Without report of headache, chest pain, palpitations, dyspnea, and PND. Last 14 Encounter BP Readings: Date: BP: 08/09/2025 145/77 08/08/2025 144/70 07/09/2025 116/68 07/03/2025 125/76 05/29/2025 122/62 05/22/2025 118/79 03/28/2025 112/54 12/08/2024 115/67 12/06/2024 122/64 11/28/2024 125/74 10/16/2024 146/70 06/14/2024 100/60 06/08/2024 102/66 05/16/2024 140/62 Creatinine Date Value Ref Range Status 07/03/2025 1.29 (H) 0.58 - 0.96 mg/dL Final 05/29/2025 1.34 (H) 0.58 - 0.96 mg/dL Final 03/28/2025 1.42 (H) 0.58 - 0.96 mg/dL Final 12/06/2024 1.39 (H) 0.58 - 0.96 mg/dL Final ROS Constitutional: (+) weakness Ears/Nose/Mouth/Throat: (+) hoarseness Cardiovascular: (+) lower extremity edema Musculoskeletal: (+) gait difficulty Objective LMP 04/27/2016 Physical Exam Vitals and nursing note reviewed. Constitutional: Appearance: Normal appearance. HENT: Head: Normocephalic. Eyes: Conjunctiva/sclera: Conjunctivae normal. Cardiovascular: Rate and Rhythm: Normal rate and regular rhythm. Heart sounds: Normal heart sounds. Pulmonary: Effort: Pulmonary effort is normal. Breath sounds: Normal breath sounds. Comments: O2 by [place] Abdominal: General: Bowel sounds are normal. Palpations: Abdomen i (more content not included)... Normal [facility] CNPNon 08-09-2025 CNPN Telephone (HCSIND) -------- SAMANTHA ROMERO ([id number]) 1965 F Date Time Provider Department 08/09/25 [facility] During your visit today, we recorded the following information about you: Fantasma Puente LSW 08/09/2025 9:59 AM Signed 08/09/25 The patient declined Social Work at start of care with [facility] 08/08/25 per RN. Thank You Allergies As of Date: 08/09/2025 Noted Allergy Reaction METFORMIN 09/10/2016 6 - Diarrhea Comments: Diarrhea every time takes, even with ER dose OXYCODONE 07/07/2021 8 - GI Upset PERCOCET (OXYCODONE-ACETAMINOPHEN )05/07/2014 8 - GI Upset Comments: and off balance Date Reviewed: 08/08/2025 Reviewed by: Susan Guardado, RN - Fully Assessed Reason for Visit: Home Care [4073] Prescriptions as of 08/09/2025 - dicyclomine (BENTYL) 10 mg capsule Take 1 capsule by mouth before meals and at bedtime. for abdominal pain - gabapentin (NEURONTIN) 800 mg tablet Take 1 tablet by mouth three times a day for 90 days. Patient should start on July 08, 2025. - HYDROcodone-acetaminophe n (NORCO) 5-325 mg per tablet Take 1 tablet by mouth four times a day as needed for pain for up to 30 days. Patient should start on July 12, 2025. - dulaglutide (TRULICITY) 4.5 mg/0.5 mL pen injector Inject 4.5 mg subcutaneously one time a week. - empagliflozin (JARDIANCE) 25 mg tablet Take 1 tablet by mouth daily with breakfast. ON HOLD FOLLOWING HOSPITAL DISCHARGE 04/2024 - insulin degludec (TRESIBA FLEXTOUCH U-200) 200 unit/mL (3 mL) injection Inject 80 Units subcutaneously daily at bedtime. - HYDROcodone-acetaminophe n (NORCO) 5-325 mg per tablet Take 1 tablet by mouth four times a day as needed for pain for up to 30 days. Patient should start on September 10, 2025. - HYDROcodone-acetaminophe n (NORCO) 5-325 mg per tablet Take 1 tablet by mouth four times a day as needed for pain for up to 30 days. Patient should start on August 11, 2025. - metOLazone (ZAROXOLYN) 10 mg tablet Take 1 tablet by mouth once daily for 5 days. Take this in the morning. - furosemide (LASIX) 40 mg tablet Take 1 tablet by mouth two times a day. - levothyroxine (SYNTHROID) 300 mcg tablet Take 300 mcg daily but on 1 day of the week take an extra tablet to equal 8 pills a week. - potassium chloride (K-TAB) 10 mEq tablet Take 1 tablet by mouth once daily. - PEG 400-propylene glycol (SYSTANE ULTRA) 0.4-0.3 % ophthalmic solution Use 1 drop in both eyes four times daily. - lisinopril 2.5 mg tablet Take 1 tablet by mouth once daily. ON HOLD FOLLOWING HOSPITAL DISCHARGE 04/2024 - insulin aspart U-100 (NOVOLOG) 100 unit/mL (3 mL) pen INJECT 20 UNITS SUBCUTANEOUSLY WITH MEALS THREE TIMES A DAY PLUS SLIDING SCALE #2 (add 2 units for every 50 points above 150 mg/dl) BASED ON PRE-MEAL BLOOD SUGAR (MAX: 96 UNITS PER DAY) - insulin degludec (TRESIBA FLEXTOUCH U-200) 200 unit/mL (3 mL) injection Inject 80 Units subcutaneously daily at bedtime. - flash glucose sensor (FREESTYLE TAYLOR 14 DAY SENSOR) kit Use to check blood sugar 4 times daily. Please give 2 sensors per refill - blood sugar diagnostic (BLOOD GLUCOSE TEST) test strip Test blood sugar(s) 4 times daily. Dx: Type 2 DM - Controlled E11.9 Insulin: Yes - meloxicam (MOBIC) 15 mg tablet Take 1 tablet by mouth once daily as needed for pain. With food. - omeprazole (PRILOSEC) 40 mg capsule Take 1 capsule by mouth once daily. - Cholecalciferol, Vitamin D3, 125 mcg (5,000 unit) cap Take 1 capsule by mouth once daily. - blood sugar diagnostic (FREESTYLE LITE STRIPS) test strip Test blood sugar(s) 4 times daily. Dx: Other DM Code E11.40 Insulin: Yes - rosuvastatin (CRESTOR) 10 mg tablet Take 1 tablet by mouth daily at bedtime. - Fenofibrate (LOFIBRA) 160 mg tablet Take 1 tablet by mouth once daily. - keTORolac (ACULAR) 0.5 % ophthalmic solution EVERY 6 HOURS - prednisoLONE acetate (PRED FORTE) 1 % ophthalmic suspension EVERY 6 HOURS - insulin degludec (TRESIBA FLEXTOUCH U-200) 200 unit/mL (3 mL) injection Inject 80 Units subcutaneously daily at bedtime. - hydrOXYzine HCl (ATARAX) 25 mg tablet Take 1-2 tablets by mouth at bedtime as needed. - Insulin Boerne, Disposable, (DROPLET PEN NEEDLE) 31 gauge x 3/16 use 1 PEN NEEDLE to inject MEDICATION subcutaneously four times a day - fluticasone (FLONASE) 50 mcg/actuation nasal spray Use 1-2 Sprays in each nostril once daily as needed. - blood sugar diagnostic (BLOOD GLUCOSE TEST) test strip Test blood sugar(s) 4 times daily. Dx: Other DM Code E11.40 Insulin: Yes - OXYGEN, HOME THERAPY, Inhale 3.5 L/min as instructed as directed. Uses at 2 l/m via nasal cannula during the day and 4 l/m at night Patient should start on August 08, 2025. - Blood-Glucose Meter monitoring kit Check sugars daily and as needed (Freestyle Lite is what she has had) - Lancets lancets Test blood (more content not included)... Normal [facility] T4 Free SerPl-mCncon 025 Free T4 [Mass/Vol] 1.5 ng/dL Normal 0.9-1.7 [facility] Comment on above: Order Comment: Speci men Type: BLOOD SPECIMENOrdering Facility: [facility] Address: [address] [place] [address] Performed By: #### 3 024-7, [facility], 37361-1 ####[facility] LABCLIA [id number] [address] [place] TSH W/REFLEX FT4on 5 TSH Qn 8.580 m[IU]/L High 0.270-4.[address] [facility] Comment on above: Order Comment: Speci men Type: BLOOD SPECIMENOrdering Facility: [facility] Address: [address] [place] [address] Performed By: #### 3 024-7, [facility], 59157-3 ####[facility] LABCLIA [id number] [address] [place] CNPMeli 08-08-2025 CNPN Telephone (HCSIND) -------- SAMANTHA ROMERO ([id number]) 1965 F Date Time Provider Department 08/08/25 SUSAN GUARDADO During your visit today, we recorded the following information about you: Susan Guardado RN 08/08/2025 9:32 PM Signed LISSY Bernardo completed today. Please see severe drug/drug interaction and advise pt on any changes dicyclomine, and potassium chloride Susan Allen RN Allergies As of Date: 08/08/2025 Noted Allergy Reaction METFORMIN 09/10/2016 6 - Diarrhea Comments: Diarrhea every time takes, even with ER dose OXYCODONE 07/07/2021 8 - GI Upset PERCOCET (OXYCODONE-ACETAMINOPHEN )05/07/2014 8 - GI Upset Comments: and off balance Date Reviewed: 08/08/2025 Reviewed by: Susan Guardado, COLT - Fully Assessed Reason for Visit: Home Care [4073] Prescriptions as of 08/08/2025 - dicyclomine (BENTYL) 10 mg capsule Take 1 capsule by mouth before meals and at bedtime. for abdominal pain - gabapentin (NEURONTIN) 800 mg tablet Take 1 tablet by mouth three times a day for 90 days. Patient should start on July 08, 2025. - HYDROcodone-acetaminophe n (NORCO) 5-325 mg per tablet Take 1 tablet by mouth four times a day as needed for pain for up to 30 days. Patient should start on July 12, 2025. - dulaglutide (TRULICITY) 4.5 mg/0.5 mL pen injector Inject 4.5 mg subcutaneously one time a week. - empagliflozin (JARDIANCE) 25 mg tablet Take 1 tablet by mouth daily with breakfast. ON HOLD FOLLOWING HOSPITAL DISCHARGE 04/2024 - insulin degludec (TRESIBA FLEXTOUCH U-200) 200 unit/mL (3 mL) injection Inject 80 Units subcutaneously daily at bedtime. - HYDROcodone-acetaminophe n (NORCO) 5-325 mg per tablet Take 1 tablet by mouth four times a day as needed for pain for up to 30 days. Patient should start on September 10, 2025. - HYDROcodone-acetaminophe n (NORCO) 5-325 mg per tablet Take 1 tablet by mouth four times a day as needed for pain for up to 30 days. Patient should start on August 11, 2025. - metOLazone (ZAROXOLYN) 10 mg tablet Take 1 tablet by mouth once daily for 5 days. Take this in the morning. - furosemide (LASIX) 40 mg tablet Take 1 tablet by mouth two times a day. - levothyroxine (SYNTHROID) 300 mcg tablet Take 300 mcg daily but on 1 day of the week take an extra tablet to equal 8 pills a week. - potassium chloride (K-TAB) 10 mEq tablet Take 1 tablet by mouth once daily. - PEG 400-propylene glycol (SYSTANE ULTRA) 0.4-0.3 % ophthalmic solution Use 1 drop in both eyes four times daily. - lisinopril 2.5 mg tablet Take 1 tablet by mouth once daily. ON HOLD FOLLOWING HOSPITAL DISCHARGE 04/2024 - insulin aspart U-100 (NOVOLOG) 100 unit/mL (3 mL) pen INJECT 20 UNITS SUBCUTANEOUSLY WITH MEALS THREE TIMES A DAY PLUS SLIDING SCALE #2 (add 2 units for every 50 points above 150 mg/dl) BASED ON PRE-MEAL BLOOD SUGAR (MAX: 96 UNITS PER DAY) - insulin degludec (TRESIBA FLEXTOUCH U-200) 200 unit/mL (3 mL) injection Inject 80 Units subcutaneously daily at bedtime. - flash glucose sensor (FREESTYLE TAYLOR 14 DAY SENSOR) kit Use to check blood sugar 4 times daily. Please give 2 sensors per refill - blood sugar diagnostic (BLOOD GLUCOSE TEST) test strip Test blood sugar(s) 4 times daily. Dx: Type 2 DM - Controlled E11.9 Insulin: Yes - meloxicam (MOBIC) 15 mg tablet Take 1 tablet by mouth once daily as needed for pain. With food. - omeprazole (PRILOSEC) 40 mg capsule Take 1 capsule by mouth once daily. - Cholecalciferol, Vitamin D3, 125 mcg (5,000 unit) cap Take 1 capsule by mouth once daily. - blood sugar diagnostic (FREESTYLE LITE STRIPS) test strip Test blood sugar(s) 4 times daily. Dx: Other DM Code E11.40 Insulin: Yes - rosuvastatin (CRESTOR) 10 mg tablet Take 1 tablet by mouth daily at bedtime. - Fenofibrate (LOFIBRA) 160 mg tablet Take 1 tablet by mouth once daily. - keTORolac (ACULAR) 0.5 % ophthalmic solution EVERY 6 HOURS - prednisoLONE acetate (PRED FORTE) 1 % ophthalmic suspension EVERY 6 HOURS - insulin degludec (TRESIBA FLEXTOUCH U-200) 200 unit/mL (3 mL) injection Inject 80 Units subcutaneously daily at bedtime. - hydrOXYzine HCl (ATARAX) 25 mg tablet Take 1-2 tablets by mouth at bedtime as needed. - Insulin Boerne, Disposable, (DROPLET PEN NEEDLE) 31 gauge x 3/16 use 1 PEN NEEDLE to inject MEDICATION subcutaneously four times a day - fluticasone (FLONASE) 50 mcg/actuation nasal spray Use 1-2 Sprays in each nostril once daily as needed. - blood sugar diagnostic (BLOOD GLUCOSE TEST) test strip Test blood sugar(s) 4 times daily. Dx: Other DM Code E11.40 Insulin: Yes - OXYGEN, HOME THERAPY, Inhale 3.5 L/min as instructed as directed. Uses at 2 l/m via nasal cannula during the day and 4 l/m at night Patient should start on August 08, 2025. - Blood-Glucose Meter monitoring kit Check sugars daily and as needed (more content not included)... Normal [facility] CNPNon 08-06-2025 CNPN Telephone (HCSIND) -------- ANYSAMANTHA Kerri ([id number]) 1965 F Date Time Provider Department 08/06/25 BRITTNI PEARSON HCSIND During your visit today, we recorded the following information about you: Brittni Pearson LPN 08/06/2025 12:05 PM Signed Called number listed as alternate due to pt having issues with her phone. [phone] . No answer, left message to return call to [facility] at [phone] and advised that we will have to close this referral if we do not hear back with date for reschedule. Brittni Pearson LPN August 06, 2025 12:04 PM Isabelle Oneal LPN 08/07/2025 1:50 PM Signed [facility]. Reports that our calls are coming through as spam so she does not answer. Samantha is aware we would have to cancel the referral if we are unable to initiate services tomorrow. She verbalized understanding. We discussed answer all calls, including the spam calls to ensure she can speak with the nurse. She agreed that she would and could hang up on spam callers, if necessary. PT has an appointment on so SOC is being requested for 08/08/25. Brittni notified of request to obtain new order and finalize referral. Isabelle Oneal LPN Allergies As of Date: 08/06/2025 Noted Allergy Reaction METFORMIN 09/10/2016 6 - Diarrhea Comments: Diarrhea every time takes, even with ER dose OXYCODONE 07/07/2021 8 - GI Upset PERCOCET (OXYCODONE-ACETAMINOPHEN )05/07/2014 8 - GI Upset Comments: and off balance Date Reviewed: 07/09/2025 Reviewed by: Kay Paredes APRN.ADVISORY SOFTWARE ENGINEER - Fully Assessed Reason for Visit: Home Care [4073] Cmt: Reschedule Prescriptions as of 08/07/2025 - dicyclomine (BENTYL) 10 mg capsule Take 1 capsule by mouth before meals and at bedtime. for abdominal pain - gabapentin (NEURONTIN) 800 mg tablet Take 1 tablet by mouth three times a day for 90 days. Patient should start on July 08, 2025. - HYDROcodone-acetaminophe n (NORCO) 5-325 mg per tablet Take 1 tablet by mouth four times a day as needed for pain for up to 30 days. Patient should start on July 12, 2025. - dulaglutide (TRULICITY) 4.5 mg/0.5 mL pen injector Inject 4.5 mg subcutaneously one time a week. - empagliflozin (JARDIANCE) 25 mg tablet Take 1 tablet by mouth daily with breakfast. ON HOLD FOLLOWING HOSPITAL DISCHARGE 04/2024 - insulin degludec (TRESIBA FLEXTOUCH U-200) 200 unit/mL (3 mL) injection Inject 80 Units subcutaneously daily at bedtime. - HYDROcodone-acetaminophe n (NORCO) 5-325 mg per tablet Take 1 tablet by mouth four times a day as needed for pain for up to 30 days. Patient should start on September 10, 2025. - HYDROcodone-acetaminophe n (NORCO) 5-325 mg per tablet Take 1 tablet by mouth four times a day as needed for pain for up to 30 days. Patient should start on August 11, 2025. - metOLazone (ZAROXOLYN) 10 mg tablet Take 1 tablet by mouth once daily for 5 days. Take this in the morning. - furosemide (LASIX) 40 mg tablet Take 1 tablet by mouth two times a day. - levothyroxine (SYNTHROID) 300 mcg tablet Take 300 mcg daily but on 1 day of the week take an extra tablet to equal 8 pills a week. - potassium chloride (K-TAB) 10 mEq tablet Take 1 tablet by mouth once daily. - PEG 400-propylene glycol (SYSTANE ULTRA) 0.4-0.3 % ophthalmic solution Use 1 drop in both eyes four times daily. - lisinopril 2.5 mg tablet Take 1 tablet by mouth once daily. ON HOLD FOLLOWING HOSPITAL DISCHARGE 04/2024 - insulin aspart U-100 (NOVOLOG) 100 unit/mL (3 mL) pen INJECT 20 UNITS SUBCUTANEOUSLY WITH MEALS THREE TIMES A DAY PLUS SLIDING SCALE #2 (add 2 units for every 50 points above 150 mg/dl) BASED ON PRE-MEAL BLOOD SUGAR (MAX: 96 UNITS PER DAY) - insulin degludec (TRESIBA FLEXTOUCH U-200) 200 unit/mL (3 mL) injection Inject 80 Units subcutaneously daily at bedtime. - flash glucose sensor (FREESTYLE TAYLOR 14 DAY SENSOR) kit Use to check blood sugar 4 times daily. Please give 2 sensors per refill - blood sugar diagnostic (BLOOD GLUCOSE TEST) test strip Test blood sugar(s) 4 times daily. Dx: Type 2 DM - Controlled E11.9 Insulin: Yes - meloxicam (MOBIC) 15 mg tablet Take 1 tablet by mouth once daily as needed for pain. With food. - omeprazole (PRILOSEC) 40 mg capsule Take 1 capsule by mouth once daily. - Cholecalciferol, Vitamin D3, 125 mcg (5,000 unit) cap Take 1 capsule by mouth once daily. - blood sugar diagnostic (FREESTYLE LITE STRIPS) test strip Test blood sugar(s) 4 times daily. Dx: Other DM Code E11.40 Insulin: Yes - rosuvastatin (CRESTOR) 10 mg tablet Take 1 tablet by mouth daily at bedtime. - Fenofibrate (LOFIBRA) 160 mg tablet Take 1 tablet by mouth once daily. - keTORolac (ACULAR) 0.5 % ophthalmic solution EVERY 6 HOURS - prednisoLONE acetate (PRED FORTE) 1 % ophthalmic suspension EVERY 6 HOURS - promethazine (PHENERGAN) 25 mg tablet Take 25 mg by mouth (more content not included)... Normal [facility] [place] 08-05-2025 [facility] Telephone (HCSIND) -------- SAMANTHA ROMERO ([id number]) 1965 F Date Time Provider Department 08/05/25 MARLEE DOBSON During your visit today, we recorded the following information about you: Marlee Dobson LPN 08/05/2025 10:26 AM Signed Patient declined scheduled nursing start of care for 08/05/25 and is requesting a start of care on 08/06/25 Please let us know if you agree with this start of care date. We are unable to proceed without your agreement to the change in SOC of date. Thank you, GARIMA Darnell Terri, APRN.QUALITY ASSURANCE PRACTICE MANAGER 08/06/2025 9:27 AM Signed OK start of care on 08/06/25, let [facility] know Allergies As of Date: 08/05/2025 Noted Allergy Reaction METFORMIN 09/10/2016 6 - Diarrhea Comments: Diarrhea every time takes, even with ER dose OXYCODONE 07/07/2021 8 - GI Upset PERCOCET (OXYCODONE-ACETAMINOPHEN )05/07/2014 8 - GI Upset Comments: and off balance Date Reviewed: 07/09/2025 Reviewed by: Kay Paredes APRN.ADVISORY SOFTWARE ENGINEER - Fully Assessed Reason for Visit: Home Care [4073] Cmt: SOC delay/ approval needed Prescriptions as of 08/06/2025 - dicyclomine (BENTYL) 10 mg capsule Take 1 capsule by mouth before meals and at bedtime. for abdominal pain - gabapentin (NEURONTIN) 800 mg tablet Take 1 tablet by mouth three times a day for 90 days. Patient should start on July 08, 2025. - HYDROcodone-acetaminophe n (NORCO) 5-325 mg per tablet Take 1 tablet by mouth four times a day as needed for pain for up to 30 days. Patient should start on July 12, 2025. - dulaglutide (TRULICITY) 4.5 mg/0.5 mL pen injector Inject 4.5 mg subcutaneously one time a week. - empagliflozin (JARDIANCE) 25 mg tablet Take 1 tablet by mouth daily with breakfast. ON HOLD FOLLOWING HOSPITAL DISCHARGE 04/2024 - insulin degludec (TRESIBA FLEXTOUCH U-200) 200 unit/mL (3 mL) injection Inject 80 Units subcutaneously daily at bedtime. - HYDROcodone-acetaminophe n (NORCO) 5-325 mg per tablet Take 1 tablet by mouth four times a day as needed for pain for up to 30 days. Patient should start on September 10, 2025. - HYDROcodone-acetaminophe n (NORCO) 5-325 mg per tablet Take 1 tablet by mouth four times a day as needed for pain for up to 30 days. Patient should start on August 11, 2025. - metOLazone (ZAROXOLYN) 10 mg tablet Take 1 tablet by mouth once daily for 5 days. Take this in the morning. - furosemide (LASIX) 40 mg tablet Take 1 tablet by mouth two times a day. - levothyroxine (SYNTHROID) 300 mcg tablet Take 300 mcg daily but on 1 day of the week take an extra tablet to equal 8 pills a week. - potassium chloride (K-TAB) 10 mEq tablet Take 1 tablet by mouth once daily. - PEG 400-propylene glycol (SYSTANE ULTRA) 0.4-0.3 % ophthalmic solution Use 1 drop in both eyes four times daily. - lisinopril 2.5 mg tablet Take 1 tablet by mouth once daily. ON HOLD FOLLOWING HOSPITAL DISCHARGE 04/2024 - insulin aspart U-100 (NOVOLOG) 100 unit/mL (3 mL) pen INJECT 20 UNITS SUBCUTANEOUSLY WITH MEALS THREE TIMES A DAY PLUS SLIDING SCALE #2 (add 2 units for every 50 points above 150 mg/dl) BASED ON PRE-MEAL BLOOD SUGAR (MAX: 96 UNITS PER DAY) - insulin degludec (TRESIBA FLEXTOUCH U-200) 200 unit/mL (3 mL) injection Inject 80 Units subcutaneously daily at bedtime. - flash glucose sensor (FREESTYLE TAYLOR 14 DAY SENSOR) kit Use to check blood sugar 4 times daily. Please give 2 sensors per refill - blood sugar diagnostic (BLOOD GLUCOSE TEST) test strip Test blood sugar(s) 4 times daily. Dx: Type 2 DM - Controlled E11.9 Insulin: Yes - meloxicam (MOBIC) 15 mg tablet Take 1 tablet by mouth once daily as needed for pain. With food. - omeprazole (PRILOSEC) 40 mg capsule Take 1 capsule by mouth once daily. - Cholecalciferol, Vitamin D3, 125 mcg (5,000 unit) cap Take 1 capsule by mouth once daily. - blood sugar diagnostic (FREESTYLE LITE STRIPS) test strip Test blood sugar(s) 4 times daily. Dx: Other DM Code E11.40 Insulin: Yes - rosuvastatin (CRESTOR) 10 mg tablet Take 1 tablet by mouth daily at bedtime. - Fenofibrate (LOFIBRA) 160 mg tablet Take 1 tablet by mouth once daily. - keTORolac (ACULAR) 0.5 % ophthalmic solution EVERY 6 HOURS - prednisoLONE acetate (PRED FORTE) 1 % ophthalmic suspension EVERY 6 HOURS - promethazine (PHENERGAN) 25 mg tablet Take 25 mg by mouth every 6 hours as needed. - insulin degludec (TRESIBA FLEXTOUCH U-200) 200 unit/mL (3 mL) injection Inject 80 Units subcutaneously daily at bedtime. - hydrOXYzine HCl (ATARAX) 25 mg tablet Take 1-2 tablets by mouth at bedtime as needed. - Insulin [place], Disposable, (DROPLET PEN NEEDLE) 31 gauge x 3/16 use 1 PEN NEEDLE to inject MEDICATION subcutaneously four times a day - fluticasone (FLONASE) 50 mcg/actuation nasal spray Use 1-2 Sprays in each nostril once daily as needed. - blood sugar diagnostic (BLOOD GLUCOSE TEST) test strip T (more content not included)... Normal [facility] Telephone (HCSIND) -------- SAMANTHA ROMERO ([id number]) 1965 F Date Time Provider Department 08/05/25 SONAL VASQUEZ HCSIND During your visit today, we recorded the following information about you: Sonal Vasquez RN 08/05/2025 8:45 AM Signed Good morning, I was not able to reach pt to set up admission to home health for 08/05/25. We will attempt to reschedule. Thank you! Allergies As of Date: 08/05/2025 Noted Allergy Reaction METFORMIN 09/10/2016 6 - Diarrhea Comments: Diarrhea every time takes, even with ER dose OXYCODONE 07/07/2021 8 - GI Upset PERCOCET (OXYCODONE-ACETAMINOPHEN )05/07/2014 8 - GI Upset Comments: and off balance Date Reviewed: 07/09/2025 Reviewed by: Kay Paredes APRN.ADVISORY SOFTWARE ENGINEER - Fully Assessed Reason for Visit: Home Care [4073] Prescriptions as of 08/05/2025 - dicyclomine (BENTYL) 10 mg capsule Take 1 capsule by mouth before meals and at bedtime. for abdominal pain - gabapentin (NEURONTIN) 800 mg tablet Take 1 tablet by mouth three times a day for 90 days. Patient should start on July 08, 2025. - HYDROcodone-acetaminophe n (NORCO) 5-325 mg per tablet Take 1 tablet by mouth four times a day as needed for pain for up to 30 days. Patient should start on July 12, 2025. - dulaglutide (TRULICITY) 4.5 mg/0.5 mL pen injector Inject 4.5 mg subcutaneously one time a week. - empagliflozin (JARDIANCE) 25 mg tablet Take 1 tablet by mouth daily with breakfast. ON HOLD FOLLOWING HOSPITAL DISCHARGE 04/2024 - insulin degludec (TRESIBA FLEXTOUCH U-200) 200 unit/mL (3 mL) injection Inject 80 Units subcutaneously daily at bedtime. - HYDROcodone-acetaminophe n (NORCO) 5-325 mg per tablet Take 1 tablet by mouth four times a day as needed for pain for up to 30 days. Patient should start on September 10, 2025. - HYDROcodone-acetaminophe n (NORCO) 5-325 mg per tablet Take 1 tablet by mouth four times a day as needed for pain for up to 30 days. Patient should start on August 11, 2025. - metOLazone (ZAROXOLYN) 10 mg tablet Take 1 tablet by mouth once daily for 5 days. Take this in the morning. - furosemide (LASIX) 40 mg tablet Take 1 tablet by mouth two times a day. - levothyroxine (SYNTHROID) 300 mcg tablet Take 300 mcg daily but on 1 day of the week take an extra tablet to equal 8 pills a week. - potassium chloride (K-TAB) 10 mEq tablet Take 1 tablet by mouth once daily. - PEG 400-propylene glycol (SYSTANE ULTRA) 0.4-0.3 % ophthalmic solution Use 1 drop in both eyes four times daily. - lisinopril 2.5 mg tablet Take 1 tablet by mouth once daily. ON HOLD FOLLOWING HOSPITAL DISCHARGE 04/2024 - insulin aspart U-100 (NOVOLOG) 100 unit/mL (3 mL) pen INJECT 20 UNITS SUBCUTANEOUSLY WITH MEALS THREE TIMES A DAY PLUS SLIDING SCALE #2 (add 2 units for every 50 points above 150 mg/dl) BASED ON PRE-MEAL BLOOD SUGAR (MAX: 96 UNITS PER DAY) - insulin degludec (TRESIBA FLEXTOUCH U-200) 200 unit/mL (3 mL) injection Inject 80 Units subcutaneously daily at bedtime. - flash glucose sensor (FREESTYLE TAYLOR 14 DAY SENSOR) kit Use to check blood sugar 4 times daily. Please give 2 sensors per refill - blood sugar diagnostic (BLOOD GLUCOSE TEST) test strip Test blood sugar(s) 4 times daily. Dx: Type 2 DM - Controlled E11.9 Insulin: Yes - meloxicam (MOBIC) 15 mg tablet Take 1 tablet by mouth once daily as needed for pain. With food. - omeprazole (PRILOSEC) 40 mg capsule Take 1 capsule by mouth once daily. - Cholecalciferol, Vitamin D3, 125 mcg (5,000 unit) cap Take 1 capsule by mouth once daily. - blood sugar diagnostic (FREESTYLE LITE STRIPS) test strip Test blood sugar(s) 4 times daily. Dx: Other DM Code E11.40 Insulin: Yes - rosuvastatin (CRESTOR) 10 mg tablet Take 1 tablet by mouth daily at bedtime. - Fenofibrate (LOFIBRA) 160 mg tablet Take 1 tablet by mouth once daily. - keTORolac (ACULAR) 0.5 % ophthalmic solution EVERY 6 HOURS - prednisoLONE acetate (PRED FORTE) 1 % ophthalmic suspension EVERY 6 HOURS - promethazine (PHENERGAN) 25 mg tablet Take 25 mg by mouth every 6 hours as needed. - insulin degludec (TRESIBA FLEXTOUCH U-200) 200 unit/mL (3 mL) injection Inject 80 Units subcutaneously daily at bedtime. - hydrOXYzine HCl (ATARAX) 25 mg tablet Take 1-2 tablets by mouth at bedtime as needed. - Insulin [place], Disposable, (DROPLET PEN NEEDLE) 31 gauge x 3/16 use 1 PEN NEEDLE to inject MEDICATION subcutaneously four times a day - fluticasone (FLONASE) 50 mcg/actuation nasal spray Use 1-2 Sprays in each nostril once daily as needed. - blood sugar diagnostic (BLOOD GLUCOSE TEST) test strip Test blood sugar(s) 4 times daily. Dx: Other DM Code E11.40 Insulin: Yes - OXYGEN, HOME THERAPY, Inhale as instructed as directed. Uses at 2 l/m via nasal cannula during the day and 4 l/m at night - Blood-Glucose Meter monitoring kit Check sugars daily and as needed (Freestyle Lite is wha (more content not included)... Normal [facility] Glucoseon 08-03-2025 FINGERSTICK GLU 174 mg/dL High 74-106 [facility] Comment on above: Result Comment: BRADEN GEMENT OF PATIENT CARE PER NURSING PROTOCOL Performed By: #### L 501.080 #### [facility] [address] [place], [address] FINGERSTICK GLU 115 mg/dL High 74-106 [facility] Comment on above: Result Comment: BRADEN GEMENT OF PATIENT CARE PER NURSING PROTOCOL Performed By: #### L 503.7505, L500.2500 #### [facility] [address] [place], [address] FINGERSTICK GLU 152 mg/dL High 74-106 [facility] Comment on above: Result Comment: BRADEN GEMENT OF PATIENT CARE PER NURSING PROTOCOL Performed By: #### L 501.080 #### [facility] [address] [place], [address] CNP[facility]-03-20[facility] -------- SAMANTHA ROMERO ([id number]) 1965 F Date Time Provider Department 08/03/25 BRITTNI PEARSON HCSIND During your visit today, we recorded the following information about you: Brittni Pearson LPN 08/03/2025 5:45 PM Signed Spoke with family member Ann-Marie who advised that she will advise pt to return call but is unable to complete confirmation call. Brittni Pearson LPN August 03, 2025 5:44 PM Nancy Reynolds LPN 08/04/2025 10:19 AM Signed Date/Time: 08/04/2025 10:17 AM Spoke with Ann-Marie @ phone #: [phone] - Stated will speak to patient and call us back. Nancy Reynolds LPN 08/04/2025 10:57 AM Signed Date/Time: 08/04/2025 10:56 AM Spoke with Columbussahara hale @ phone #: [phone] - Preferred # for contact: [phone] Have you received help from a home care company in the last 60 days? No. Can you commit to a visit in this time frame? Yes. - If no, please advise that we would not be able to move forward with services and they would need to contact their provider when they are ready to start services. Are you agreeable to [facility] services? Yes. What address will we be seeing you at? [address] [facility] [address] Do you have any upcoming appointments or things we need to schedule around? No. Do you have a teachable CG or can you manage your care independently? Son lives with patient. Brother lives close by. Was patient given Flu shot this Season (After Jun,): No: Patient refused Allergies As of Date: 08/03/2025 Noted Allergy Reaction METFORMIN 09/10/2016 6 - Diarrhea Comments: Diarrhea every time takes, even with ER dose OXYCODONE 07/07/2021 8 - GI Upset PERCOCET (OXYCODONE-ACETAMINOPHEN )05/07/2014 8 - GI Upset Comments: and off balance Date Reviewed: 07/09/2025 Reviewed by: Kay Paredes APRN.ADVISORY SOFTWARE ENGINEER - Fully Assessed Reason for Visit: Home Care [4073] Cmt: Confirmation call Prescriptions as of 08/04/2025 - dicyclomine (BENTYL) 10 mg capsule Take 1 capsule by mouth before meals and at bedtime. for abdominal pain - gabapentin (NEURONTIN) 800 mg tablet Take 1 tablet by mouth three times a day for 90 days. Patient should start on July 08, 2025. - HYDROcodone-acetaminophe n (NORCO) 5-325 mg per tablet Take 1 tablet by mouth four times a day as needed for pain for up to 30 days. Patient should start on July 12, 2025. - dulaglutide (TRULICITY) 4.5 mg/0.5 mL pen injector Inject 4.5 mg subcutaneously one time a week. - empagliflozin (JARDIANCE) 25 mg tablet Take 1 tablet by mouth daily with breakfast. ON HOLD FOLLOWING HOSPITAL DISCHARGE 04/2024 - insulin degludec (TRESIBA FLEXTOUCH U-200) 200 unit/mL (3 mL) injection Inject 80 Units subcutaneously daily at bedtime. - HYDROcodone-acetaminophe n (NORCO) 5-325 mg per tablet Take 1 tablet by mouth four times a day as needed for pain for up to 30 days. Patient should start on September 10, 2025. - HYDROcodone-acetaminophe n (NORCO) 5-325 mg per tablet Take 1 tablet by mouth four times a day as needed for pain for up to 30 days. Patient should start on August 11, 2025. - metOLazone (ZAROXOLYN) 10 mg tablet Take 1 tablet by mouth once daily for 5 days. Take this in the morning. - furosemide (LASIX) 40 mg tablet Take 1 tablet by mouth two times a day. - levothyroxine (SYNTHROID) 300 mcg tablet Take 300 mcg daily but on 1 day of the week take an extra tablet to equal 8 pills a week. - potassium chloride (K-TAB) 10 mEq tablet Take 1 tablet by mouth once daily. - PEG 400-propylene glycol (SYSTANE ULTRA) 0.4-0.3 % ophthalmic solution Use 1 drop in both eyes four times daily. - lisinopril 2.5 mg tablet Take 1 tablet by mouth once daily. ON HOLD FOLLOWING HOSPITAL DISCHARGE 04/2024 - insulin aspart U-100 (NOVOLOG) 100 unit/mL (3 mL) pen INJECT 20 UNITS SUBCUTANEOUSLY WITH MEALS THREE TIMES A DAY PLUS SLIDING SCALE #2 (add 2 units for every 50 points above 150 mg/dl) BASED ON PRE-MEAL BLOOD SUGAR (MAX: 96 UNITS PER DAY) - insulin degludec (TRESIBA FLEXTOUCH U-200) 200 unit/mL (3 mL) injection Inject 80 Units subcutaneously daily at bedtime. - flash glucose sensor (FREESTYLE TAYLOR 14 DAY SENSOR) kit Use to check blood sugar 4 times daily. Please give 2 sensors per refill - blood sugar diagnostic (BLOOD GLUCOSE TEST) test strip Test blood sugar(s) 4 times daily. Dx: Type 2 DM - Controlled E11.9 Insulin: Yes - meloxicam (MOBIC) 15 mg tablet Take 1 tablet by mouth once daily as needed for pain. With food. - omeprazole (PRILOSEC) 40 mg capsule Take 1 capsule by mouth once daily. - Cholecalciferol, Vitamin D3, 125 mcg (5,000 unit) cap Take 1 capsule by mouth once daily. - blood sugar diagnostic (FREESTYLE LITE STRIPS) test strip Test blood sugar(s) 4 times daily. Dx: Other DM Code E11.40 Insulin: Yes - rosuvastatin (CRESTOR) 10 mg tablet Take 1 tablet by mouth daily at bedtime. - Fenofib (more content not included)... Normal [facility] Telephone (HCSIND) -------- SAMANTHA ROMERO ([id number]) 1965 F Date Time Provider Department 08/03/25 BRITTNI PEARSON During your visit today, we recorded the following information about you: Brittni Pearson LPN 08/03/2025 12:55 PM Signed Sarina Adams MD Please advise if you are agreeable to signing and following for [facility] services? Our Clinicians will be sending the Plan of Care to you for review and approval. They will reach out for any appropriate orders required to provide home care services for the patient. We are not able to initiate HHC services without a following provider. Home care clinicians may also obtain orders from [facility] Providers Thank you and we would be happy to answer any questions. Brittni Pearson LPN 08/03/2025 12:55 PM Brittni PearsonGARIMA 08/03/2025 3:50 PM Signed Spoke with Nida from Dr. Adams office. She is unable to confirm if provider will follow be has sent her the request. Brittni PearsonGARIMA August 03, 2025 3:50 PM Brittni PearsonGARIMA 08/03/2025 6:36 PM Signed Provider confirmed via secure chat she will follow for home care. Brittni PearsonGARIMA Allergies As of Date: 08/03/2025 Noted Allergy Reaction METFORMIN 09/10/2016 6 - Diarrhea Comments: Diarrhea every time takes, even with ER dose OXYCODONE 07/07/2021 8 - GI Upset PERCOCET (OXYCODONE-ACETAMINOPHEN )05/07/2014 8 - GI Upset Comments: and off balance Date Reviewed: 07/09/2025 Reviewed by: Kay Paredes APRN.ADVISORY SOFTWARE ENGINEER - Fully Assessed Reason for Visit: Home Care [4073] Cmt: to Follow Prescriptions as of 08/03/2025 - dicyclomine (BENTYL) 10 mg capsule Take 1 capsule by mouth before meals and at bedtime. for abdominal pain - gabapentin (NEURONTIN) 800 mg tablet Take 1 tablet by mouth three times a day for 90 days. Patient should start on July 08, 2025. - HYDROcodone-acetaminophe n (NORCO) 5-325 mg per tablet Take 1 tablet by mouth four times a day as needed for pain for up to 30 days. Patient should start on July 12, 2025. - dulaglutide (TRULICITY) 4.5 mg/0.5 mL pen injector Inject 4.5 mg subcutaneously one time a week. - empagliflozin (JARDIANCE) 25 mg tablet Take 1 tablet by mouth daily with breakfast. ON HOLD FOLLOWING HOSPITAL DISCHARGE 04/2024 - insulin degludec (TRESIBA FLEXTOUCH U-200) 200 unit/mL (3 mL) injection Inject 80 Units subcutaneously daily at bedtime. - HYDROcodone-acetaminophe n (NORCO) 5-325 mg per tablet Take 1 tablet by mouth four times a day as needed for pain for up to 30 days. Patient should start on September 10, 2025. - HYDROcodone-acetaminophe n (NORCO) 5-325 mg per tablet Take 1 tablet by mouth four times a day as needed for pain for up to 30 days. Patient should start on August 11, 2025. - metOLazone (ZAROXOLYN) 10 mg tablet Take 1 tablet by mouth once daily for 5 days. Take this in the morning. - furosemide (LASIX) 40 mg tablet Take 1 tablet by mouth two times a day. - levothyroxine (SYNTHROID) 300 mcg tablet Take 300 mcg daily but on 1 day of the week take an extra tablet to equal 8 pills a week. - potassium chloride (K-TAB) 10 mEq tablet Take 1 tablet by mouth once daily. - PEG 400-propylene glycol (SYSTANE ULTRA) 0.4-0.3 % ophthalmic solution Use 1 drop in both eyes four times daily. - lisinopril 2.5 mg tablet Take 1 tablet by mouth once daily. ON HOLD FOLLOWING HOSPITAL DISCHARGE 04/2024 - insulin aspart U-100 (NOVOLOG) 100 unit/mL (3 mL) pen INJECT 20 UNITS SUBCUTANEOUSLY WITH MEALS THREE TIMES A DAY PLUS SLIDING SCALE #2 (add 2 units for every 50 points above 150 mg/dl) BASED ON PRE-MEAL BLOOD SUGAR (MAX: 96 UNITS PER DAY) - insulin degludec (TRESIBA FLEXTOUCH U-200) 200 unit/mL (3 mL) injection Inject 80 Units subcutaneously daily at bedtime. - flash glucose sensor (FREESTYLE TAYLOR 14 DAY SENSOR) kit Use to check blood sugar 4 times daily. Please give 2 sensors per refill - blood sugar diagnostic (BLOOD GLUCOSE TEST) test strip Test blood sugar(s) 4 times daily. Dx: Type 2 DM - Controlled E11.9 Insulin: Yes - meloxicam (MOBIC) 15 mg tablet Take 1 tablet by mouth once daily as needed for pain. With food. - omeprazole (PRILOSEC) 40 mg capsule Take 1 capsule by mouth once daily. - Cholecalciferol, Vitamin D3, 125 mcg (5,000 unit) cap Take 1 capsule by mouth once daily. - blood sugar diagnostic (FREESTYLE LITE STRIPS) test strip Test blood sugar(s) 4 times daily. Dx: Other DM Code E11.40 Insulin: Yes - rosuvastatin (CRESTOR) 10 mg tablet Take 1 tablet by mouth daily at bedtime. - Fenofibrate (LOFIBRA) 160 mg tablet Take 1 tablet by mouth once daily. - keTORolac (ACULAR) 0.5 % ophthalmic solution EVERY 6 HOURS - prednisoLONE acetate (PRED FORTE) 1 % ophthalmic suspension EVERY 6 HOURS - promethazine (PHENERGAN) 25 mg tablet Take 25 mg by mouth every 6 hours as needed. - insulin d (more content not included)... Normal [facility] Discharge Instructionon 10- Discharge Instruction [facility] Medical Records Department [address] [place] [address] Instructions for Home/Discharge Instructions 08/03/25 1553 MR#: [id number] Acct: [id number] Name: SAMANTHA ROMERO Rep #: [id number] : 1965 59 From: Sol Mock DO PCP: Dr. Sarina Adams MD Status:ADM IN Discharge Instructions DC O2, CPAP, BIPAP needs Home O2 Discharge instructions: Yes Type of respiratory needs?: Oxygen Oxygen frequency: Continuous Continuous oxygen liters per minute: 2 L Dressing / Incision Discharge Activity: Return to Normal Activity Weight Bearing Status: Full weight bearing Follow Up Care Test Results: Test results from this visit will be discussed in further detail at your follow-up appointment, if applicable. Discharge Plan Admission Admit Date/Time: 08/01/25 16:59 Primary Reason for Your Visit: Hypothyroidism, acute on chronic CHF Attending Provider: Sol Mock Primary Care Provider: Sarina Adams Consulting Providers: Franky Haque; Siobhan Cosme Discharge Orders/Prescriptions Prescriptions: New furosemide 40 mg Tablet 40 mg PO BIDLX Qty: 60 0RF levothyroxine 150 mcg Tablet 300 mcg PO DAILY@0600 Qty: 30 0RF potassium chloride [Klor-Con 10] 10 mEq tablet extended release 20 meq PO DAILY Qty: 60 0RF Continued estradiol 0.01 % (0.1 mg/gram) cream 3 g VAGINAL .COMPLEX Patient Comments: insert 3 grams vaginally two times a week PT HAS NOT BEEN USING LATELY. Rx Instructions: 3 grams vaginally 2 TIMES PER WEEK; fenofibrate 160 mg tablet 160 mg PO DAILY Patient Comments: take 1 tablet by mouth once daily dicyclomine 10 mg capsule 10 mg PO ACHS Patient Comments: take 1 capsule by mouth four times a day before meals and at bedtime FOR ABDOMINAL PAIN. PT HAS NOT YET PICKED UP THE RX rosuvastatin 10 mg tablet 10 mg PO DAILY Patient Comments: take 1 tablet by mouth at bedtime gabapentin 800 mg tablet 800 mg PO TID Systane Ultra 0.4-0.3 % drops 1 drp ophthalmic (eye) 4X/DAY hydrocodone-acetaminophe n 5-325 mg tablet 1 tab PO Q6H PRN (Reason: pain) cholecalciferol (vitamin D3) 125 mcg (5,000 unit) capsule 125 mcg PO DAILY omeprazole 40 mg capsule,delayed release(DR/EC) 40 mg PO DAILY Trulicity 4.5 mg/0.5 mL pen injector 4.5 mg subcut QWEEK meloxicam 15 mg tablet 15 mg PO DAILY PRN (Reason: pain) Changed insulin lispro [Humalog KwikPen Insulin] 100 unit/mL Insulin Pen 10 unit subcut TIDCM Qty: 1 0RF insulin degludec [Tresiba FlexTouch U-100] 100 unit/mL (3 mL) insulin pen 35 unit SUBCUT QHS Qty: 1 0RF Patient Comments: INJECT 86 UNITS SUBCUTANEOUSLY DAILY AT BEDTIME Discontinued vitamin E 400 unit Capsule 400 unit PO DAILY levothyroxine 300 mcg tablet 300 mcg PO DAILY Patient Comments: TAKES IN EVENING potassium chloride 10 mEq tablet extended release 10 meq PO DAILY furosemide 40 mg tablet 40 mg PO BID insulin lispro [Humalog KwikPen Insulin] 100 unit/mL insulin pen See Protocol subcut DAILY Protocol: 1. Sliding Scale Insulin Low Dosing Condition: 150-224 mg/dl = 1 unit Condition: 225-299 mg/dl = 2 units Condition: 300-374 mg/dl = 3 units Condition: 375-449 mg/dl = 4 units Condition: Greater than 449 call physician Protocol Text: Suggested for: - Patients on Total Daily Insulin Dose of 15-27 units - Thin, elderly, renal patients LOW DOSING ALGORITHM Referrals / Follow Up: Sarina Adams MD [Primary Care Provider, Internal Medicine] - 08/09/25 2:40 pm Referral Note: Appt will be with Sarwat Alvarado NP. Disposition Disposition (needs filled in before D/C Order can be placed): Home Health Service 08/03/25 1601 Sol Mock DO CC: CULTURIST-C Siobhan Cosme; Dr. Franky Haque DO; Dr. Sarina Adams MD Signed [facility] MR/CON.PCMAbdirahman 08-03-2025 MR/CON.PCM.[facility] Medical Records Department [address] [place] [address] Consultation - Palliative Care 08/03/25 0835 MR#: [id number] Acct: [id number] Name: SAMANTHA ROMERO Rep #: [id number] : 1965 59 From: Siobhan Cosme CULTURIST -C PCP: Dr. Sarina Adams MD Status:ADM IN Location: [address] Medical History Swelling of both lower extremities Dyspnea on exertion COVID History of hypothyroidism Type 2 diabetes mellitus treated with insulin Chronic respiratory failure with hypoxia Pericardial effusion Thrombocytopenia Anemia Elevated lipase Urinary retention Obesity Former tobacco use UTI (urinary tract infection) Kidney stones Migraines Hypothyroid Hypercholesteremia Hypertension Type 2 diabetes mellitus Home Medications ???Medication ???Instructions ???Recorded ???Last Taken ???Type estradiol 0.01% (0.1 mg/gram) 3 g vaginal .COMPLEX health Unknown History vaginal cream maintenance fenofibrate 160 mg tablet 160 mg PO DAILY cholesterol 07/09/25 History vitamin E 268 mg (400 unit) capsule 400 unit PO DAILY supplement 07/09/25 History dicyclomine 10 mg capsule 10 mg PO ACHS abdominal pain 07/06 Unknown History insulin degludec 100 unit/mL (3 86 unit subcut QHS diabetes 07/08/25 History mL) subcutaneous pen (Tresiba FlexTouch U-100 insulin) rosuvastatin 10 mg tablet 10 mg PO DAILY cholesterol 1 07/08/25 History cholecalciferol (vitamin D3) 125 125 mcg PO DAILY SUPPLEMENT 07/09/25 History mcg (5,000 unit) capsule omeprazole 40 mg capsule,delayed 40 mg PO DAILY STOMACH 05/03/24 History release dulaglutide 4.5 mg/0.5 mL 4.5 mg subcut QWEEK BLOOD SUGAR 07/08/25 History subcutaneous pen injector (Trulicity) furosemide 40 mg tablet 40 mg PO BID EDEMA 07/09/25 History gabapentin 800 mg tablet 800 mg PO TID NEUROPATHY 07/09/25 07/09/25 History hydrocodone-acetaminophe n 5-325mg 1 tab PO Q6H PRN pain 07/09/25 History 5mg-325mg insulin lispro 100 unit/mL 22 unit subcut TIDCM DIABETES 03/2807/08/25 History subcutaneous pen (Humalog KwikPen (U-100) Insulin) insulin lispro 100 unit/mL See Protocol subcut DAILY DIABETES 07/09/25 07/08/25 History subcutaneous pen (Humalog KwikPen (U-100) Insulin) levothyroxine 300 mcg tablet 300 mcg PO DAILY THYROID 07/09/25 07/08/25 History peg 400-propylene glycol 0.4 %-0.3 1 drp ophthalmic (eye) 4X/DAY DR Y 07/09/25 07/07/25 History % eye drops (Systane Ultra) EYE potassium chloride 10 mEq 10 meq PO DAILY POTASSIUM 07/09/25 07/09/25 History tablet,extended release meloxicam 15 mg tablet 15 mg PO DAILY PRN pain 08/01/25 U nknown History Allergy/AdvReac Type Severity Reaction Status Date / Time metformin AdvReac Diarrhea Verified 08/01/25 11:32 oxycodone (From Percocet) AdvReac upset Verified 08/01/25 11:32 stomach/off balance Family History Mother Diabetes Father Diabetes Surgical History Previous section History of appendectomy Social History household members: none Smoking Status: Former smoker how long ago did patient quit smoking: Quit cigarette tobacco in 2015, 1 ppd since teenager until quit. alcohol intake: never substance use type: does not use ROS Constitutional Constitutional: Reports as per HPI and weakness Eyes Eyes: Reports systems reviewed and no addt'l complaints, except as documented ENT HEENT: Reports systems reviewed and no addt'l complaints, except as documented Cardiovascular Cardiovascular: Reports dyspnea, dyspnea at rest and leg edema Respiratory/Chest Respiratory/Chest: Reports wheezing Gastrointestinal Gastrointestinal: Reports as per HPI Genitourinary Genitourinary: Reports as per HPI Musculoskeletal Musculoskeletal: Reports as per HPI Integumentary Integumentary: Reports as per HPI Neurologic Neurologic: Reports systems reviewed and no addt'l complaints, except as documented Psychiatric Psychiatric: Reports systems reviewed and no addt'l complaints, except as documented Endocrine Endocrinology: Reports other Details: Severe hypothyroid Hematologic/Lymphatic Hematologic/Lymphatic: Reports systems reviewed and no addt'l complaints, except as documented Allergic/Immunologic Allergic/Immunologic: Reports systems reviewed and no addt'l complaints, except as documented Physical Exam Const alert and oriented x3 General Appearance: cooperative HEENT normocephalic E (more content not included)... Normal [facility] Basic Metabolic Profile (BMP )on 08-02-2025 BUN/CRE 23.5 RATIO High 07-23 [facility] Comment on above: Performed By: #### L 503.9565, L500.2500 #### [facility] Laboratory [address] [place], [address] Calcium [Mass/Vol] 8.9 mg/dL Normal 7.6-11.0 [facility] Comment on above: Performed By: #### L 503.7505, L500.2500 #### [facility] [address] [place], [address] Chloride [Moles/Vol] 108 mmol/L Normal 98-108 [facility] Comment on above: Performed By: #### L 503.7505, L500.2500 #### [facility] [address] [place], [address] CO2 [Moles/Vol] 27.7 mmol/L Normal 21.0-32.0 [facility] Comment on above: Performed By: #### L 503.7505, L500.2500 #### [facility] [address] [place], [address] Creatinine [Mass/Vol] 1.41 mg/dL High 0.70-1.20 [facility] Comment on above: Performed By: #### L 503.7505, L500.2500 #### [facility] [address] [place], [address] ECRCL 55.51 ml/min Normal 50-250 [facility] Comment on above: Performed By: #### L 503.7505, L500.2500 #### [facility] [address] [place], [address] GAP 8 Normal 5-15 [facility] Comment on above: Performed By: #### L 503.7505, L500.2500 #### [facility] [address] [place], [address] GFR/1.73 sq M.predicted among non-blacks MDRD (S/P/Bld) [Vol rate/Area] 43 mL/min/{1.73_m2} Low >60 [facility] Comment on above: Result Comment: mL/m in/1.73m2 CKD-EPI Creatinine Equation (2020) Performed By: #### L 503.7505, L500.2500 #### [facility] [address] [place], [address] Glucose [Mass/Vol] 135 mg/dL High 70-99 [facility] Comment on above: Performed By: #### L 503.7505, L500.2500 #### [facility] [address] [place], [address] Potassium [Moles/Vol] 4.7 mmol/L Normal 3.3-5.1 [facility] Comment on above: Performed By: #### L 503.7505, L500.2500 #### [facility] [address] [place], [address] Sodium [Moles/Vol] 144 mmol/L Normal 133-145 [facility] Comment on above: Performed By: #### L 503.7505, L500.2500 #### [facility] [address] [place], [address] Urea nitrogen [Mass/Vol] 33 mg/dL High 4-19 [facility] Comment on above: Performed By: #### L 503.7505, L500.2500 #### [facility] [address] [place], [address] Bedside Glucoseon 08-02-2025 FINGERSTICK GLU 221 mg/dL High 74-106 [facility] Comment on above: Result Comment: BRADEN GEMENT OF PATIENT CARE PER NURSING PROTOCOL Performed By: #### L 503.7505, L500.2500 #### [facility] [address] [place], [address] FINGERSTICK GLU 189 mg/dL High 74-106 [facility] Comment on above: Result Comment: BRADEN GEMENT OF PATIENT CARE PER NURSING PROTOCOL Performed By: #### L 503.7505, L500.2500 #### [facility] [address] [place], [address] FINGERSTICK GLU 148 mg/dL High 74-106 [facility] Comment on above: Result Comment: BRADEN GEMENT OF PATIENT CARE PER NURSING PROTOCOL Performed By: #### L 501.080 #### [facility] [address] [place], [address] FINGERSTICK GLU 143 mg/dL High 74-106 [facility] Comment on above: Result Comment: BRADEN GEMENT OF PATIENT CARE PER NURSING PROTOCOL Performed By: #### L 503.7505, L500.2500 #### [facility] [address] [place], [address] CBC-Complete Blood Cnt No Di ffon 08-02-2025 Erythrocyte distribution width (RBC) [Ratio] 15.9 % High 11.6-14.6 [facility] Comment on above: Performed By: #### L 503.7505, L500.2500 #### [facility] [address] [place], [address] Hematocrit (Bld) [Volume fraction] 35.7 % Low 37-47 [facility] Comment on above: Performed By: #### L 503.7505, L500.2500 #### [facility] [address] [place], [address] Hemoglobin (Bld) [Mass/Vol] 10.9 g/dL Low 12.0-15.0 [facility] Comment on above: Performed By: #### L 503.7505, L500.2500 #### [facility] [address] [place], [address] MCH (RBC) [Entitic mass] 28.0 pg Normal 27.0-32.0 [facility] Comment on above: Performed By: #### L 503.7505, L500.2500 #### [facility] [address] [place], [address] MCHC (RBC) [Mass/Vol] 30.5 g/dL Low 32-36 [facility] Comment on above: Performed By: #### L 503.7505, L500.2500 #### [facility] [address] [place], [address] MCV (RBC) [Entitic vol] 91.8 fL Normal 81-99 [facility] Comment on above: Performed By: #### L 503.7505, L500.2500 #### [facility] [address] [place], [address] Platelet mean volume (Bld) [Entitic vol] 11.8 fL Normal 6.2-12.0 [facility] Comment on above: Performed By: #### L 503.7505, L500.2500 #### [facility] [address] [place], [address] Platelets (Bld) [#/Vol] 138 10*3/uL Low 150-450 [facility] Comment on above: Performed By: #### L 503.7505, L500.2500 #### [facility] [address] [place], [address] RBC (Bld) [#/Vol] 3.89 10*6/uL Low 4.2-5.4 [facility] Comment on above: Performed By: #### L 503.7505, L500.2500 #### [facility] [address] [place], [address] RDW SD 52.6 fl High 35.1-43.9 [facility] Comment on above: Performed By: #### L 503.7505, L500.2500 #### [facility] [address] [place], [address] WBC (Bld) [#/Vol] 4.5 10*3/uL Normal 4.4-11.0 [facility] Comment on above: Performed By: #### L 503.7505, L500.2500 #### [facility] [address] [place], [address] L509.6001on 08-02-2025 CORTISOL 16.80 ug/dL Normal 6.02-18.40 [facility] Comment on above: Performed By: #### L 501.080 #### [facility] [address] [place], [address] 12 Lead EKGon 08-01-2025 12 Lead EKG [facility] Cardiovascular Services [address] [place] [address] 12 Lead EKG 08/01/25 1220 MR#: [id number] Acct: [id number] Name: SAMANTHA ROMERO Rep #: [id number] : 1965 59 From: Ed Barraza MD Attending Dr: Dr. Sol Mock DO Status: A DM IN Ordering Dr: Tayler Leach DO Date: 08/01/25 Location: [facility] Sex: F C Admitted: 08/01/25 Test Reason : SOB Blood Pressure : */* mmHG Vent. Rate : 62 BPM Atrial Rate : 62 BPM P-R Int : 210 ms QRS Dur : 100 ms QT Int : 472 ms P-R-T Axes : 33 9 68 degrees QTcB Int : 479 ms Sinus rhythm with 1st degree A-V block Otherwise normal ECG Confirmed by ED BARRAZA MD ([id number]), editor school photograph ALICJA DE LA PAZ ([id number]) on 08/03/2025 10:06:26 AM Referred By: RU Confirmed By: ED BARRAZA MD 08/03/25 1006 Date Ed Barraza MD CC: Dr. Sarina Adams MD; Dr. Sol Mock DO; Dr. Tayler Leach DO Signed Normal [facility] Abdomen/Pelvis without Conto n 08-01-2025 Abdomen/Pelvis without Cont [facility] Imaging Services [address] [place] [address] [id number] Abdomen/Pelvis without Cont MR#: [id number] Acct: [id number] Name: SAMANTHA ROMERO Rep #: [id number] : 1965 F 59 From: Laci Conroy MD PCP: Dr. Sarina Adams MD Status: REG ER Study: Abdomen/Pelvis without Cont Date of Exam: 07/05 06/28 Exam# [id number] Ordering Dr: Tayler Leach DO PROCEDURE: ABDOMEN/PELVIS WITHOUT CONT 08/01/2025 REASON FOR EXAM: ABDOMINAL PAIN TECHNIQUE: Procedure Code: CTABDPEL Modality: CT Procedure: ABDOMEN/PELVIS WITHOUT CONT Noncontrast technique limits evaluation of the abdominal and pelvic viscera. Coronal and Sagittal reconstruction series were provided. One or more dose reduction techniques were used (e.g., Automated exposure control, adjustment of the mA and/or kV according to patient size, use of iterative reconstruction technique). RADIATION DOSE SUMMARY: DLP: 1263 mGycm COMPARISON: None FINDINGS: Lung bases: There is a 2.5 cm pericardial effusion. There is a 2.2 cm right pleural effusion. There is a 0.6 cm left pleural effusion. Liver: Liver has a nodular margin consistent with cirrhosis. Gallbladder: Unremarkable Spleen: Spleen is enlarged at 16 cm. Pancreas: Unremarkable Adrenals: Unremarkable Kidneys: Unremarkable Bladder: Unremarkable Reproductive Organs: Unremarkable Bowel: There is gas and stool noted in the colon with a moderate stool load. The small-bowel loops are nondistended. Appendix: Within normal limits Lymph nodes: There is no pathologic adenopathy by size criteria. Vasculature: Atherosclerotic calcifications are noted. Peritoneum / Retroperitoneum: There is no free air or free fluid in the abdomen. Bones: There is no acute bony abnormality. Circumferential subcutaneous edema is noted. CT/Abdomen/Pelvis without Cont IMPRESSION: There is a 2.5 cm pericardial effusion. There is a 2.2 cm right pleural effusion. There is a 0.6 cm left pleural effusion. Liver has a nodular margin consistent with cirrhosis. Spleen is enlarged at 16 cm. Reading Location: [facility] CC: Dr. Sarina Adams MD; Dr. Tayler Leach DO [employer] Drafter: Signed Normal [facility] Bedside Glucoseon 08-01-2025 FINGERSTICK GLU 117 mg/dL High 74-106 [facility] Comment on above: Result Comment: BRADEN PAZ OF PATIENT CARE PER NURSING PROTOCOL Performed By: #### L 501.080 #### [facility] [address] [place], [address] CBC W/Diff, Automatedon 07-05 Absolute Lymph 0.69 X10 3/uL Low 0.83-4.51 [facility] Comment on above: Performed By: #### L 501.080 #### [facility] [address], [address] Absolute Neut 1.9 X10 3/uL Low 2.0-7.7 [facility] Comment on above: Performed By: #### L 501.080 #### [facility] [address] [place], [address] Basophils/100 WBC (Bld) 0.3 % Normal 0-1 [facility] Comment on above: Performed By: #### L 501.080 #### [facility] [address] [place], [address] Eosinophils/100 WBC (Bld) 7.1 % High 0-5 [facility] Comment on above: Performed By: #### L 501.080 #### [facility] [address] [place], [address] Erythrocyte distribution width (RBC) [Ratio] 15.5 % High 11.6-14.6 [facility] Comment on above: Performed By: #### L 501.080 #### [facility] [address] [place], [address] Hematocrit (Bld) [Volume fraction] 36.1 % Low 37-47 [facility] Comment on above: Performed By: #### L 501.080 #### [facility] [address] [place], [address] Hemoglobin (Bld) [Mass/Vol] 11.3 g/dL Low 12.0-15.0 [facility] Comment on above: Performed By: #### L 501.080 #### [facility] [address] [place], [address] IG% 0.300 Normal 0.0-0.9 [facility] Comment on above: Result Comment: IG% - Immature Granulocytes (promyelocytes, myelocytes and metamyelocytes) > 1% indicates that a LEFT SHIFT is Present. Performed By: #### L 501.080 #### [facility] [address] [place], [address] Lymphocytes/100 WBC (Bld) 22.1 % Normal 19-41 [facility] Comment on above: Performed By: #### L 501.080 #### [facility] [address] [place], [address] MCH (RBC) [Entitic mass] 28.7 pg Normal 27.0-32.0 [facility] Comment on above: Performed By: #### L 501.080 #### [facility] [address] [place], [address] MCHC (RBC) [Mass/Vol] 31.3 g/dL Low 32-36 [facility] Comment on above: Performed By: #### L 501.080 #### [facility] [address] [place], [address] MCV (RBC) [Entitic vol] 91.6 fL Normal 81-99 [facility] Comment on above: Performed By: #### L 501.080 #### [facility] [address] [place], [address] Monocytes/100 WBC (Bld) 10.3 % High 0-10 [facility] Comment on above: Performed By: #### L 501.080 #### [facility] [address] [place], [address] Neutrophils/100 WBC (Bld) 59.9 % Normal 47-70 [facility] Comment on above: Performed By: #### L 501.080 #### [facility] [address] [place], [address] Nucleated RBC (Bld) [#/Vol] 0 10*3/uL Normal 0-5 [facility] Comment on above: Performed By: #### L 501.080 #### [facility] [address] [place], [address] Platelet mean volume (Bld) [Entitic vol] 11.2 fL Normal 6.2-12.0 [facility] Comment on above: Performed By: #### L 501.080 #### [facility] [address] [place], [address] Platelets (Bld) [#/Vol] 110 10*3/uL Low 150-450 [facility] Comment on above: Performed By: #### L 501.080 #### [facility] [address] [place], [address] RBC (Bld) [#/Vol] 3.94 10*6/uL Low 4.2-5.4 [facility] Comment on above: Performed By: #### L 501.080 #### [facility] [address] [place], [address] RDW SD 51.8 fl High 35.1-43.9 [facility] Comment on above: Performed By: #### L 501.080 #### [facility] [address] [place], [address] WBC (Bld) [#/Vol] 3.1 10*3/uL Low 4.4-11.0 [facility] Comment on above: Performed By: #### L 501.080 #### [facility] [address] [place], [address] Chest 1 View (Portable)on Chest 1 View (Portable) [facility] Imaging Services [address] [place] [address] Chest 1 View (Portable) MR#: [id number] Acct: [id number] Name: SAMANTHA ROMERO Rep #: [id number] : 1965 F 59 From: Darius Coburn MD PCP: Dr. Sarina Adams MD Status: REG ER Study: Chest 1 View (Portable) Date of Exam: 08/01/25 Exam# [id number] Ordering Dr: Tyaler Leach DO PROCEDURE: CHEST 1 VIEW (PORTABLE) 08/01/2025 REASON FOR EXAM: DYSPNEA TECHNIQUE: Frontal view of the chest. COMPARISON: July 09, 2025 FINDINGS: Hardware: EKG leads Heart: Enlarged Lungs: Central congestion, mild edema. Bones: The bones are unremarkable. RAD/Chest 1 View (Portable) IMPRESSION: Central congestion, mild edema. Reading Location: [id number] CC: Dr. Sarina Adams MD; Dr. Tayler Leach DO [employer] Drafter: Signed Normal [facility] Comprehensive Metabolic Prof ilon 08-01-2025 Albumin [Mass/Vol] 3.1 g/dL Low 3.5-5.0 [facility] Comment on above: Performed By: #### L 503.7505, L500.2500 #### [facility] [address] [place], [address] Albumin/Globulin [Mass ratio] 0.9 {ratio} Normal 0.9-2.4 [facility] Comment on above: Performed By: #### L 503.7505, L500.2500 #### [facility] [address] [place], [address] ALK PHOS 99 U/L Normal 35-104 [facility] Comment on above: Performed By: #### L 503.7505, L500.2500 #### [facility] [address] [place], [address] ALT [Catalytic activity/Vol] 29 U/L Normal <=34 [facility] Comment on above: Performed By: #### L 503.7505, L500.2500 #### [facility] [address] [place], [address] AST [Catalytic activity/Vol] 42 U/L High <=31 [facility] Comment on above: Result Comment: Hemo lysis present, Results??could be affected. ?? Performed By: #### L 503.7505, L500.2500 #### [facility] [address] [place], [address] Bilirubin [Mass/Vol] 0.21 mg/dL Normal 0.00-1.30 [facility] Comment on above: Performed By: #### L 503.7505, L500.2500 #### [facility] [address] [place], [address] BUN/CRE 25.0 RATIO High 10-20 [facility] Comment on above: Performed By: #### L 503.7505, L500.2500 #### [facility] [address] [place], [address] Calcium [Mass/Vol] 8.8 mg/dL Normal 7.6-11.0 [facility] Comment on above: Performed By: #### L 503.7505, L500.2500 #### [facility] [address] [place], [address] Chloride [Moles/Vol] 109 mmol/L High 98-108 [facility] Comment on above: Performed By: #### L 503.7505, L500.2500 #### [facility] [address] [place], [address] CO2 [Moles/Vol] 27.0 mmol/L Normal 21.0-32.0 [facility] Comment on above: Performed By: #### L 503.7505, L500.2500 #### [facility] [address] [place], [address] Creatinine [Mass/Vol] 1.34 mg/dL High 0.70-1.20 [facility] Comment on above: Performed By: #### L 503.7505, L500.2500 #### [facility] [address] [place], [address] GAP 8 Normal 5-15 [facility] Comment on above: Performed By: #### L 503.7505, L500.2500 #### [facility] [address] [place], [address] GFR/1.73 sq M.predicted among non-blacks MDRD (S/P/Bld) [Vol rate/Area] 46 mL/min/{1.73_m2} Low >60 [facility] Comment on above: Result Comment: mL/m in/1.73m2 CKD-EPI Creatinine Equation (2020) Performed By: #### L 503.7505, L500.2500 #### [facility] [address] [place], [address] Globulin (S) [Mass/Vol] 3.3 g/dL Normal 2.2-4.2 [facility] Comment on above: Performed By: #### L 503.7505, L500.2500 #### [facility] [address] [place], [address] Glucose [Mass/Vol] 116 mg/dL High 70-99 [facility] Comment on above: Performed By: #### L 503.7505, L500.2500 #### [facility] [address] [place], [address] Potassium [Moles/Vol] 4.7 mmol/L Normal 3.3-5.1 [facility] Comment on above: Result Comment: Hemo lysis present, Results??could be affected. ?? Performed By: #### L 503.7505, L500.2500 #### [facility] [address] [place], [address] Sodium [Moles/Vol] 144 mmol/L Normal 133-145 [facility] Comment on above: Performed By: #### L 503.7505, L500.2500 #### [facility] [address] [place], [address] T PROT 6.4 g/dL Normal 5.9-8.4 [facility] Comment on above: Performed By: #### L 503.7505, L500.2500 #### [facility] [address] [place], [address] Urea nitrogen [Mass/Vol] 34 mg/dL High 4-19 [facility] Comment on above: Performed By: #### L 503.7505, L500.2500 #### [facility] [address] [place], [address] Echo, Limited Studyon 2024 Echo, Limited Study [facility] [address] [place] [address] Echo, Limited Study 08/01/25 1622 MR#: [id number] Acct: [id number] Name: SAMANTHA ROMERO Kerri Rep #: [id number] : 1965 59 From: Sophia Horta MD Attending Dr: Dr. Sol Mock, Status: A DM IN Ordering Dr: Tayler Leach DO Date: 08/01/25 Location: U Sex: F C Admitted: 08/01/25 Reason For Study Reason For Study: CHF, PERICARDIAL EFFUSION Procedure This was a 2D Doppler, Color Flow transthoracic echocardiogram. The study was technically difficult. PT sitting in upright reclining position. Exam performed portable in ED. Dr. Horta notified via text/backline echo complete @5:15 pm. Left Ventricle Normal LV size. Mild concentric left ventricular hypertrophy. Posterior and inferior hypokinesis. Estimated LVEF 40-45%. At least stage I diastolic dysfunction. Right Ventricle Normal right ventricle. Atria The left and right atria are normal. Mitral Valve Mild mitral annular calcification. Tricuspid Valve Normal tricuspid valve. Aortic Valve The aortic valve is not well visualized in the short axis view. Pulmonic Valve The pulmonic valve is not well visualized. Great Vessels Normal sized aortic root. Pericardium/Pleural Moderate pericardial effusion. Compared to previous study on 07/10/2025, the pericardial effusion appears to be mildly increased. MMode/2D Measurements Calculations LVIDd: 5.2 cm IVSd: 1.4 cm LAV(MOD-bp): 103.8 ml LVIDs: 3.3 cm LVPWd: 1.2 cm LAV(MOD-sp2): 104.6 ml RVDd: 3.9 cm FS: 36.4 % LAV(MOD-sp4): 101.1 ml _ LVAd ap4: 33.7 cm2 SV(MOD-sp4): 67.2 ml SV(sp4-el): 64.5 ml LVLd ap4: 8.8 cm EDV(MOD-sp4): 110.7 ml EDV(sp4-el): 109.5 ml LVAs ap4: 18.8 cm2 LVLs ap4: 6.7 cm ESV(MOD-sp4): 43.5 ml ESV(sp4-el): 45.0 ml EF(MOD-sp4): 60.7 % EF(sp4-el): 58.9 % _ LA A4 area: 29.0 cm2 LA dimension(2D): 4.4 cm RA A4 area: 18.2 cm2 ECHO/Echo, Limited Study Interpretation Summary Posterior and inferior hypokinesis. Estimated LVEF 40-45%. At least stage I diastolic dysfunction. Moderate pericardial effusion. Compared to previous study on 07/10/2025, the pericardial effusion appears to be mildly increased. The study was technically difficult. Ordering Physician: Tayler Leach Referring Physician: Sarina Adams Performed By: Asiya Kramer, LEDA, RVT 08/02/25 1020 Date Sophia Horta MD CC: Dr. Sarina Adams MD; Dr. Sol Mock DO; Dr. Tayler Leach DO Date Dictated: 08/01/25 1622 Date Transcribed: 08/02/25 1020 [employer] Drafter: Signed Normal [facility] Emergency Department Summary on 08-01-2025 Emergency Department Summary [facility] Medical Records Department [address] [place] [address] Emergency Department Summary 08/01/25 MR#: [id number] Acct: [id number] Name: SAMANTHA ROMERO Rep #: [id number] : 1965 59 From: Tayler Leach DO PCP: Dr. Sarina Adams MD Status:REG ER Location: ED HPI History of Present Illness Chief Complaint: Shortness of Breath Detail of Chief Complaint: Dyspnea, weakness, difficulty ambulating Informant: patient Narrative Narrative: Patient presents to the emergency department with multiple complaints today. She complains of generalized weakness. She complains of swelling over her entire body. She complains of a hoarse voice. She denies fevers or chills or sweats. Patient states that she was admitted for similar presentation to the hospital earlier this month. She complains of some abdominal pain. She denies dysuria. She denies chest pain. She normally wears home O2 2 L due to damage from COVID to her lungs 4 years ago. [facility] Medical History COVID History of hypothyroidism Type 2 diabetes mellitus treated with insulin Chronic respiratory failure with hypoxia Pericardial effusion Thrombocytopenia Anemia Elevated lipase Urinary retention Obesity Former tobacco use UTI (urinary tract infection) Kidney stones Migraines Hypothyroid Hypercholesteremia Hypertension Type 2 diabetes mellitus Home Medications ???Medication ???Instructions ???Recorded ???Last Taken ???Type estradiol 0.01% (0.1 mg/gram) 3 g vaginal .COMPLEX health Unknown History vaginal cream maintenance fenofibrate 160 mg tablet 160 mg PO DAILY cholesterol 07/09/25 History vitamin E 268 mg (400 unit) capsule 400 unit PO DAILY supplement 07/09/25 History dicyclomine 10 mg capsule 10 mg PO ACHS abdominal pain 07/06 Unknown History insulin degludec 100 unit/mL (3 86 unit subcut QHS diabetes 07/08/25 History mL) subcutaneous pen (Tresiba FlexTouch U-100 insulin) rosuvastatin 10 mg tablet 10 mg PO DAILY cholesterol 1 07/08/25 History cholecalciferol (vitamin D3) 125 125 mcg PO DAILY SUPPLEMENT 07/09/25 History mcg (5,000 unit) capsule omeprazole 40 mg capsule,delayed 40 mg PO DAILY STOMACH 05/03/24 History release dulaglutide 4.5 mg/0.5 mL 4.5 mg subcut QWEEK BLOOD SUGAR 07/08/25 History subcutaneous pen injector (Trulicity) furosemide 40 mg tablet 40 mg PO BID EDEMA 07/09/25 History gabapentin 800 mg tablet 800 mg PO TID NEUROPATHY 07/09/25 07/09/25 History hydrocodone-acetaminophe n 5-325mg 1 tab PO Q6H PRN pain 07/09/25 History 5mg-325mg insulin lispro 100 unit/mL 22 unit subcut TIDCM DIABETES 03/2807/08/25 History subcutaneous pen (Humalog KwikPen (U-100) Insulin) insulin lispro 100 unit/mL See Protocol subcut DAILY DIABETES 07/09/25 07/08/25 History subcutaneous pen (Humalog KwikPen (U-100) Insulin) levothyroxine 300 mcg tablet 300 mcg PO DAILY THYROID 07/09/25 07/08/25 History peg 400-propylene glycol 0.4 %-0.3 1 drp ophthalmic (eye) 4X/DAY DR Hale 07/09/25 07/07/25 History % eye drops (Systane Ultra) EYE potassium chloride 10 mEq 10 meq PO DAILY POTASSIUM 07/09/25 07/09/25 History tablet,extended release Allergy/AdvReac Type Severity Reaction Status Date / Time metformin AdvReac Diarrhea Verified 08/01/25 11:32 oxycodone (From Percocet) AdvReac upset Verified 08/01/25 11:32 stomach/off balance Family History Mother Diabetes Father Diabetes Surgical History Previous section History of appendectomy Social History household members: none Smoking Status: Former smoker how long ago did patient quit smoking: Quit cigarette tobacco in 2015, 1 ppd since teenager until quit. alcohol intake: never substance use type: does not use ROS ROS ED Review of Systems ROS Unobtainable: other Constitutional Constitutional ED: Reports lethargy; Denies chills, fever(s), sweats or weight loss Eyes Eyes: Denies blurry vision, change in vision or diplopia ENT ENT ED: Denies rhinorrhea or sore throat Cardiovascular Cardiovascular: Denies chest pain, orthopnea or racing heartbeat Respiratory/Chest Respiratory/Chest: Reports dyspnea and dyspnea on exertion; Denies cough, orthopnea or sputum Gastrointestinal Gastrointestinal: Reports abdominal pain; Denies diarrhea, nausea or vomiting Genitourinary Genitourinary ED: Denies dysuria, hematuria or urinary frequency Musculoskeletal Musculoskeletal: Reports other Details: Edema to trunk a (more content not included)... Normal [facility] H&P Exam - Hospitalist [facility] Medical Records Department [address] [place] [address] H P Exam - Hospitalist 08/01/25 1659 MR#: [id number] Acct: [id number] Name: SAMANTHA ROMERO Rep #: [id number] : 1965 59 From: Franky Haque DO PCP: Dr. Sarina Adams MD Status:ADM IN Location: [place] [address] HPI - General General Date of Admission: 08/01/25 Date of Service: 08/01/25 Chief Complaint: Weakness and lower extremity swelling HPI Narrative SAMANTHA ROMERO, is a 59 F who presented to [facility] ED on 08/01/2025 with worsening weakness and lower extremity swelling. Patient was recently hospitalized here from 07/09-07/12 for acute on chronic hypoxic respiratory failure suspected secondary to an acute HFpEF exacerbation. Was suspected the exacerbation was due to intermittent nonadherence to home Lasix, lack of fluid restriction and hypothyroidism with TSH 14 as patient was taking Synthroid at night. She did diurese well during hospitalization and was able to be discharged on her home 2 L nasal cannula. She returned today for worsening generalized weakness, worsening swelling in her legs and all over as well as a hoarse voice. In the ED she was hypertensive to the 160s systolic, was otherwise stable on home 2 L nasal cannula at rest. Chest x-ray showed central pulmonary congestion with no pleural effusions. BNP normal. However, TSH 56 with free T4 0.60. Given her worsening weakness and volume overload secondary to severe hypothyroidism, hospitalist was contacted for admission. I saw the patient at bedside in the ED. Patient was fatigued appearing but otherwise sitting back comfortably in bed and in no acute distress. She notably was having an echo done as her CT chest called a 2.5 cm pericardial effusion. She notably did have an echo done on 07/10 that showed a less than 1 cm pericardial effusion and she had no evidence of tamponade on admission, so she was okay for admission with echo result pending. She reiterated her concerns above to me. Will be admitted for further management. [facility] Medical History COVID History of hypothyroidism Type 2 diabetes mellitus treated with insulin Chronic respiratory failure with hypoxia Pericardial effusion Thrombocytopenia Anemia Elevated lipase Urinary retention Obesity Former tobacco use UTI (urinary tract infection) Kidney stones Migraines Hypothyroid Hypercholesteremia Hypertension Type 2 diabetes mellitus Home Medications ???Medication ???Instructions ???Recorded ???Last Taken ???Type estradiol 0.01% (0.1 mg/gram) 3 g vaginal .COMPLEX health Unknown History vaginal cream maintenance fenofibrate 160 mg tablet 160 mg PO DAILY cholesterol 07/09/25 History vitamin E 268 mg (400 unit) capsule 400 unit PO DAILY supplement 07/09/25 History dicyclomine 10 mg capsule 10 mg PO ACHS abdominal pain 07/06 Unknown History insulin degludec 100 unit/mL (3 86 unit subcut QHS diabetes 07/08/25 History mL) subcutaneous pen (Tresiba FlexTouch U-100 insulin) rosuvastatin 10 mg tablet 10 mg PO DAILY cholesterol 1 07/08/25 History cholecalciferol (vitamin D3) 125 125 mcg PO DAILY SUPPLEMENT 07/09/25 History mcg (5,000 unit) capsule omeprazole 40 mg capsule,delayed 40 mg PO DAILY STOMACH 05/03/24 History release dulaglutide 4.5 mg/0.5 mL 4.5 mg subcut QWEEK BLOOD SUGAR 07/08/25 History subcutaneous pen injector (Trulicity) furosemide 40 mg tablet 40 mg PO BID EDEMA 07/09/25 History gabapentin 800 mg tablet 800 mg PO TID NEUROPATHY 07/09/25 07/09/25 History hydrocodone-acetaminophe n 5-325mg 1 tab PO Q6H PRN pain 07/09/25 History 5mg-325mg insulin lispro 100 unit/mL 22 unit subcut TIDCM DIABETES 03/2807/08/25 History subcutaneous pen (Humalog KwikPen (U-100) Insulin) insulin lispro 100 unit/mL See Protocol subcut DAILY DIABETES 07/09/25 07/08/25 History subcutaneous pen (Humalog KwikPen (U-100) Insulin) levothyroxine 300 mcg tablet 300 mcg PO DAILY THYROID 07/09/25 07/08/25 History peg 400-propylene glycol 0.4 %-0.3 1 drp ophthalmic (eye) 4X/DAY DR Y 10/06/25 10/04/25 History % eye drops (Systane Ultra) EYE potassium chloride 10 mEq 10 meq PO DAILY POTASSIUM 07/09/25 07/09/25 History tablet,extended release meloxicam 15 mg tablet 15 mg PO DAILY PRN pain 08/01/25 U nknown History Allergy/AdvReac Type Severity Reaction Status Date / Time metformin AdvReac Diarrhea Verified 08/01/25 11:32 oxycodone (From Percocet) AdvReac upset Verified 08/01/25 11:32 stomach/off balance Family History Mother Diabetes Father Diabetes (more content not included)... Normal [facility] L501.4021on 08-01-2025 Trop T High Sen 41 ng/L High <=14 [facility] Comment on above: Performed By: #### L 100.0100, L503.6005, L500.4050 #### [facility] [address] [place], [address] Lactic Acidon 08-01-2025 Lactate [Moles/Vol] mmol/L Normal 0.0-2.0 [facility] Comment on above: Order Comment: Y Performed By: #### L 503.7505, L500.2500 #### [facility] [address] [place], [address] Pro- Brain NATRIURETIC PEPTI Harvey 08-01-2025 Natriuretic peptide B (Bld) [Mass/Vol] 88 pg/mL Normal <=900 [facility] Comment on above: Result Comment: Hear t Failure Unlikely: < 300 pg/mL Heart Failure Likely < 50 Years: > 450 pg/mL 50-75 Years: > 900 pg/mL >75 Years: > 1800 pg/mL Performed By: #### L 503.7505, L500.2500 #### [facility] [address] [place], [place], [address] T4 Free Directon 08-01-2025 T4 FREE DIRECT 0.60 ng/dL Low 0.76-1.46 [facility] Comment on above: Order Comment: Comme nts: ok to add onok to add on Performed By: #### L 503.7505, L500.2500 #### [facility] [address] [place], [address] Thyroid Stim Hormone (TSH)on 08-01-2025 TSH 56.800 uIU/mL High 0.300-4.200 [facility] Comment on above: Order Comment: Comme nts: ok to add on Performed By: #### L 503.7505, L500.2500 #### [facility] [address] [place], [address] Troponin T HS 2 HRon 025 Trop T High Sen 40 ng/L High <=14 [facility] Comment on above: Performed By: #### L 501.080 #### [facility] [address] [place], [address] Troponin T HS 4 HRon 025 Trop T High Sen 38 ng/L High <=14 [facility] Comment on above: Performed By: #### L 501.080 #### [facility] [address] [place], [address] Urinalysis, Completeon 08-01 CAST,HYALINE 0-5 SEEN Normal 0-5 [facility] Comment on above: Order Comment: CLEAN CATCH Performed By: #### L 503.7505, L500.2500 #### [facility] [address] [place], [address] EPI,SQUAMOUS 0-5 SEEN Normal 5-10 [facility] Comment on above: Order Comment: CLEAN CATCH Performed By: #### L 503.7505, L500.2500 #### [facility] [address] [place], [address] RBC 0-5 SEEN Normal 0-5 [facility] Comment on above: Order Comment: CLEAN CATCH Performed By: #### L 503.7505, L500.2500 #### [facility] [address] [place], [address] WBC 5-10 SEEN Normal 0-5 [facility] Comment on above: Order Comment: CLEAN CATCH Performed By: #### L 503.7505, L500.2500 #### [facility] [address] [place], [address] BACTERIA 0 SEEN Normal None Seen [facility] Comment on above: Order Comment: CLEAN CATCH Performed By: #### L 503.7505, L500.2500 #### [facility] [address] [place], [address] Mucus Ql (Urine sed) 0 SEEN Normal [facility] Comment on above: Order Comment: CLEAN CATCH Performed By: #### L 503.7505, L500.2500 #### [facility] [address] [place], [address] Basic Metabolic Profile (BMP )on 07-17-2025 BUN Normal 4-19 [facility] Comment on above: Result Comment: Canc elled via OM: Order cancelled - Patient discharged Performed By: #### L 503.7505, L500.2500 #### [facility] [address] [place], [address] BUN/CRE Normal 10-20 [facility] Comment on above: Result Comment: Canc elled via OM: Order cancelled - Patient discharged Performed By: #### L 503.7505, L500.2500 #### [facility] [address] [place], [address] Calcium Normal 7.6-11.0 [facility] Comment on above: Result Comment: Canc elled via OM: Order cancelled - Patient discharged Performed By: #### L 503.7505, L500.2500 #### [facility] [address] [place], [address] CL Normal 98-108 [facility] Comment on above: Result Comment: Canc elled via OM: Order cancelled - Patient discharged Performed By: #### L 503.7505, L500.2500 #### [facility] [address] [place], [address] CO2 Normal 21.0-32.0 [facility] Comment on above: Result Comment: Canc elled via OM: Order cancelled - Patient discharged Performed By: #### L 503.7505, L500.2500 #### [facility] [address] [place], [address] CREAT,SERUM Normal 0.70-1.20 [facility] Comment on above: Result Comment: Canc elled via OM: Order cancelled - Patient discharged Performed By: #### L 503.7505, L500.2500 #### [facility] [address] [place], [address] eGFR Normal >60 [facility] Comment on above: Result Comment: Canc elled via OM: Order cancelled - Patient discharged Performed By: #### L 503.7505, L500.2500 #### [facility] [address] [place], [address] GAP Normal 5-15 [facility] Comment on above: Result Comment: Canc elled via OM: Order cancelled - Patient discharged Performed By: #### L 503.7505, L500.2500 #### [facility] [address] [place], [address] GLU Normal 70-99 [facility] Comment on above: Result Comment: Canc elled via OM: Order cancelled - Patient discharged Performed By: #### L 503.7505, L500.2500 #### [facility] [address] [place], [address] Potassium Normal 3.3-5.1 [facility] Comment on above: Result Comment: Canc elled via OM: Order cancelled - Patient discharged Performed By: #### L 503.7505, L500.2500 #### [facility] [address] [place], [address] Basic Metabolic Profile (BMP) Normal 133-145 [facility] Comment on above: Result Comment: Canc elled via OM: Order cancelled - Patient discharged Performed By: #### L 503.7505, L500.2500 #### [facility] [address] [place], [address] CBC-Complete Blood Cnt No Di ffon 07-17-2025 HCT Normal 37-47 [facility] Comment on above: Result Comment: Canc elled via OM: Order cancelled - Patient discharged Performed By: #### L 503.7505, L500.2500 #### [facility] [address] [place], [address] HGB Normal 12.0-15.0 [facility] Comment on above: Result Comment: Canc elled via OM: Order cancelled - Patient discharged Performed By: #### L 503.7505, L500.2500 #### [facility] [address] [place], [address] MCH Normal 27.0-32.0 [facility] Comment on above: Result Comment: Canc elled via OM: Order cancelled - Patient discharged Performed By: #### L 503.7505, L500.2500 #### [facility] [address] [place], [address] MCHC Normal 32-36 [facility] Comment on above: Result Comment: Canc elled via OM: Order cancelled - Patient discharged Performed By: #### L 503.7505, L500.2500 #### [facility] [address] [place], [address] MCV Normal 81-99 [facility] Comment on above: Result Comment: Canc elled via OM: Order cancelled - Patient discharged Performed By: #### L 503.7505, L500.2500 #### [facility] [address] [place], [address] PLT Normal 150-450 [facility] Comment on above: Result Comment: Canc elled via OM: Order cancelled - Patient discharged Performed By: #### L 503.7505, L500.2500 #### [facility] [address] [place], [address] RBC Normal 4.2-5.4 [facility] Comment on above: Result Comment: Canc elled via OM: Order cancelled - Patient discharged Performed By: #### L 503.7505, L500.2500 #### [facility] [address] [place], [address] RDW CV Normal 11.6-14.6 [facility] Comment on above: Result Comment: Canc elled via OM: Order cancelled - Patient discharged Performed By: #### L 503.7505, L500.2500 #### [facility] [address] [place], [address] RDW SD Normal 35.1-43.9 [facility] Comment on above: Result Comment: Canc elled via OM: Order cancelled - Patient discharged Performed By: #### L 503.7505, L500.2500 #### [facility] [address] [place], [address] WBC Normal 4.4-11.0 [facility] Comment on above: Result Comment: Canc elled via OM: Order cancelled - Patient discharged Performed By: #### L 503.7505, L500.2500 #### [facility] [address] [place], [address] Basic Metabolic Profile (BMP )on 07-16-2025 BUN Normal 4-19 [facility] Comment on above: Result Comment: Canc elled via OM: Order cancelled - Patient discharged Performed By: #### L 501.080 #### [facility] [address] [place], [address] BUN/CRE Normal 10-20 [facility] Comment on above: Result Comment: Canc elled via OM: Order cancelled - Patient discharged Performed By: #### L 501.080 #### [facility] [address] [place], [address] Calcium Normal 7.6-11.0 [facility] Comment on above: Result Comment: Canc elled via OM: Order cancelled - Patient discharged Performed By: #### L 501.080 #### [facility] [address] [place], [address] CL Normal 98-108 [facility] Comment on above: Result Comment: Canc elled via OM: Order cancelled - Patient discharged Performed By: #### L 501.080 #### [facility] [address] [place], [address] CO2 Normal 21.0-32.0 [facility] Comment on above: Result Comment: Canc elled via OM: Order cancelled - Patient discharged Performed By: #### L 501.080 #### [facility] [address] [place], [address] CREAT,SERUM Normal 0.70-1.20 [facility] Comment on above: Result Comment: Canc elled via OM: Order cancelled - Patient discharged Performed By: #### L 501.080 #### [facility] [address] [place], [address] eGFR Normal >60 [facility] Comment on above: Result Comment: Canc elled via OM: Order cancelled - Patient discharged Performed By: #### L 501.080 #### [facility] [address] [place], [address] GAP Normal 5-15 [facility] Comment on above: Result Comment: Canc elled via OM: Order cancelled - Patient discharged Performed By: #### L 501.080 #### [facility] [address] [place], [address] GLU Normal 70-99 [facility] Comment on above: Result Comment: Canc elled via OM: Order cancelled - Patient discharged Performed By: #### L 501.080 #### [facility] [address] [place], [address] Potassium Normal 3.3-5.1 [facility] Comment on above: Result Comment: Canc elled via OM: Order cancelled - Patient discharged Performed By: #### L 501.080 #### [facility] [address] [place], [address] Basic Metabolic Profile (BMP) Normal 133-145 [facility] Comment on above: Result Comment: Canc elled via OM: Order cancelled - Patient discharged Performed By: #### L 501.080 #### [facility] [address] [place], [address] CBC-Complete Blood Cnt No Di ffon 07-16-2025 HCT Normal 37-47 [facility] Comment on above: Result Comment: Canc elled via OM: Order cancelled - Patient discharged Performed By: #### L 501.080 #### [facility] [address] [place], [address] HGB Normal 12.0-15.0 [facility] Comment on above: Result Comment: Canc elled via OM: Order cancelled - Patient discharged Performed By: #### L 501.080 #### [facility] [address] [place], [address] MCH Normal 27.0-32.0 [facility] Comment on above: Result Comment: Canc elled via OM: Order cancelled - Patient discharged Performed By: #### L 501.080 #### [facility] [address] [place], [address] MCHC Normal 32-36 [facility] Comment on above: Result Comment: Canc elled via OM: Order cancelled - Patient discharged Performed By: #### L 501.080 #### [facility] [address] [place], [address] MCV Normal 81-99 [facility] Comment on above: Result Comment: Canc elled via OM: Order cancelled - Patient discharged Performed By: #### L 501.080 #### [facility] [address] [place], [address] PLT Normal 150-450 [facility] Comment on above: Result Comment: Canc elled via OM: Order cancelled - Patient discharged Performed By: #### L 501.080 #### [facility] [address] [place], [address] RBC Normal 4.2-5.4 [facility] Comment on above: Result Comment: Canc elled via OM: Order cancelled - Patient discharged Performed By: #### L 501.080 #### [facility] [address] [place], [address] RDW CV Normal 11.6-14.6 [facility] Comment on above: Result Comment: Canc elled via OM: Order cancelled - Patient discharged Performed By: #### L 501.080 #### [facility] [address] [place], [address] RDW SD Normal 35.1-43.9 [facility] Comment on above: Result Comment: Canc elled via OM: Order cancelled - Patient discharged Performed By: #### L 501.080 #### [facility] [address] [place], [address] WBC Normal 4.4-11.0 [facility] Comment on above: Result Comment: Canc elled via OM: Order cancelled - Patient discharged Performed By: #### L 501.080 #### [facility] [address], [address] Basic Metabolic Profile (BMP )on 07-15-2025 BUN Normal 4-19 [facility] Comment on above: Result Comment: Canc elled via OM: Order cancelled - Patient discharged Performed By: #### L 100.0100, L503.6005, L500.4050 #### [facility] [address] [place], [address] BUN/CRE Normal 10-20 [facility] Comment on above: Result Comment: Canc elled via OM: Order cancelled - Patient discharged Performed By: #### L 100.0100, L503.6005, L500.4050 #### [facility] [address] [place], [address] Calcium Normal 7.6-11.0 [facility] Comment on above: Result Comment: Canc elled via OM: Order cancelled - Patient discharged Performed By: #### L 100.0100, L503.6005, L500.4050 #### [facility] [address] [place], [address] CL Normal 98-108 [facility] Comment on above: Result Comment: Canc elled via OM: Order cancelled - Patient discharged Performed By: #### L 100.0100, L503.6005, L500.4050 #### [facility] [address] [place], [address] CO2 Normal 21.0-32.0 [facility] Comment on above: Result Comment: Canc elled via OM: Order cancelled - Patient discharged Performed By: #### L 100.0100, L503.6005, L500.4050 #### [facility] [address] [place], [address] CREAT,SERUM Normal 0.70-1.20 [facility] Comment on above: Result Comment: Canc elled via OM: Order cancelled - Patient discharged Performed By: #### L 100.0100, L503.6005, L500.4050 #### [facility] [address] [place], [address] eGFR Normal >60 [facility] Comment on above: Result Comment: Canc elled via OM: Order cancelled - Patient discharged Performed By: #### L 100.0100, L503.6005, L500.4050 #### [facility] [address] [place], [address] GAP Normal 5-15 [facility] Comment on above: Result Comment: Canc elled via OM: Order cancelled - Patient discharged Performed By: #### L 100.0100, L503.6005, L500.4050 #### [facility] [address] [place], [address] GLU Normal 70-99 [facility] Comment on above: Result Comment: Canc elled via OM: Order cancelled - Patient discharged Performed By: #### L 100.0100, L503.6005, L500.4050 #### [facility] [address] [place], [address] Potassium Normal 3.3-5.1 [facility] Comment on above: Result Comment: Canc elled via OM: Order cancelled - Patient discharged Performed By: #### L 100.0100, L503.6005, L500.4050 #### [facility] [address] [place], [address] Basic Metabolic Profile (BMP) Normal 133-145 [facility] Comment on above: Result Comment: Canc elled via OM: Order cancelled - Patient discharged Performed By: #### L 100.0100, L503.6005, L500.4050 #### [facility] [address] [place], [address] CBC-Complete Blood Cnt No Di ffon 07-15-2025 HCT Normal 37-47 [facility] Comment on above: Result Comment: Canc elled via OM: Order cancelled - Patient discharged Performed By: #### L 100.0100, L503.6005, L500.4050 #### [facility] [address] [place], [address] HGB Normal 12.0-15.0 [facility] Comment on above: Result Comment: Canc elled via OM: Order cancelled - Patient discharged Performed By: #### L 100.0100, L503.6005, L500.4050 #### [facility] [address] [place], [address] MCH Normal 27.0-32.0 [facility] Comment on above: Result Comment: Canc elled via OM: Order cancelled - Patient discharged Performed By: #### L 100.0100, L503.6005, L500.4050 #### [facility] [address] [place], [address] MCHC Normal 32-36 [facility] Comment on above: Result Comment: Canc elled via OM: Order cancelled - Patient discharged Performed By: #### L 100.0100, L503.6005, L500.4050 #### [facility] [address] [place], [address] MCV Normal 81-99 [facility] Comment on above: Result Comment: Canc elled via OM: Order cancelled - Patient discharged Performed By: #### L 100.0100, L503.6005, L500.4050 #### [facility] [address] [place], [address] PLT Normal 150-450 [facility] Comment on above: Result Comment: Canc elled via OM: Order cancelled - Patient discharged Performed By: #### L 100.0100, L503.6005, L500.4050 #### [facility] [address] [place], [address] RBC Normal 4.2-5.4 [facility] Comment on above: Result Comment: Canc elled via OM: Order cancelled - Patient discharged Performed By: #### L 100.0100, L503.6005, L500.4050 #### [facility] [address] [place], [address] RDW CV Normal 11.6-14.6 [facility] Comment on above: Result Comment: Canc elled via OM: Order cancelled - Patient discharged Performed By: #### L 100.0100, L503.6005, L500.4050 #### [facility] [address] [place], [address] RDW SD Normal 35.1-43.9 [facility] Comment on above: Result Comment: Canc elled via OM: Order cancelled - Patient discharged Performed By: #### L 100.0100, L503.6005, L500.4050 #### [facility] [address] [place], [address] WBC Normal 4.4-11.0 [facility] Comment on above: Result Comment: Canc elled via OM: Order cancelled - Patient discharged Performed By: #### L 100.0100, L503.6005, L500.4050 #### [facility] [address] [place], [address] Basic Metabolic Profile (BMP )on 07-14-2025 BUN Normal 4-19 [facility] Comment on above: Result Comment: Canc elled via OM: Order cancelled - Patient discharged Performed By: #### L 501.080 #### [facility] [address] [place], [address] BUN/CRE Normal - [facility] Comment on above: Result Comment: Canc elled via OM: Order cancelled - Patient discharged Performed By: #### L 501.080 #### [facility] [address] [place], [address] Calcium Normal 7.6-11.0 [facility] Comment on above: Result Comment: Canc elled via OM: Order cancelled - Patient discharged Performed By: #### L 501.080 #### [facility] [address] [place], [address] CL Normal 98-108 [facility] Comment on above: Result Comment: Canc elled via OM: Order cancelled - Patient discharged Performed By: #### L 501.080 #### [facility] [address] [place], [address] CO2 Normal 21.0-32.0 [facility] Comment on above: Result Comment: Canc elled via OM: Order cancelled - Patient discharged Performed By: #### L 501.080 #### [facility] [address] [place], [address] CREAT,SERUM Normal 0.70-1.20 [facility] Comment on above: Result Comment: Canc elled via OM: Order cancelled - Patient discharged Performed By: #### L 501.080 #### [facility] [address] [place], [address] eGFR Normal >60 [facility] Comment on above: Result Comment: Canc elled via OM: Order cancelled - Patient discharged Performed By: #### L 501.080 #### [facility] [address] [place], [address] GAP Normal 5-15 [facility] Comment on above: Result Comment: Canc elled via OM: Order cancelled - Patient discharged Performed By: #### L 501.080 #### [facility] [address] [place], [address] GLU Normal 70-99 [facility] Comment on above: Result Comment: Canc elled via OM: Order cancelled - Patient discharged Performed By: #### L 501.080 #### [facility] [address] [place], [address] Potassium Normal 3.3-5.1 [facility] Comment on above: Result Comment: Canc elled via OM: Order cancelled - Patient discharged Performed By: #### L 501.080 #### [facility] [address] [place], [address] Basic Metabolic Profile (BMP) Normal 133-145 [facility] Comment on above: Result Comment: Canc elled via OM: Order cancelled - Patient discharged Performed By: #### L 501.080 #### [facility] [address] [place], [address] CBC-Complete Blood Cnt No Di ffon 07-14-2025 HCT Normal 37-47 [facility] Comment on above: Result Comment: Canc elled via OM: Order cancelled - Patient discharged Performed By: #### L 501.080 #### [facility] [address] [place], [address] HGB Normal 12.0-15.0 [facility] Comment on above: Result Comment: Canc elled via OM: Order cancelled - Patient discharged Performed By: #### L 501.080 #### [facility] [address] [place], [address] MCH Normal 27.0-32.0 [facility] Comment on above: Result Comment: Canc elled via OM: Order cancelled - Patient discharged Performed By: #### L 501.080 #### [facility] [address] [place], [address] MCHC Normal 32-36 [facility] Comment on above: Result Comment: Canc elled via OM: Order cancelled - Patient discharged Performed By: #### L 501.080 #### [facility] [address] [place], [address] MCV Normal 81-99 [facility] Comment on above: Result Comment: Canc elled via OM: Order cancelled - Patient discharged Performed By: #### L 501.080 #### [facility] [address] [place], [address] PLT Normal 150-450 [facility] Comment on above: Result Comment: Canc elled via OM: Order cancelled - Patient discharged Performed By: #### L 501.080 #### [facility] [address] [place], [address] RBC Normal 4.2-5.4 [facility] Comment on above: Result Comment: Canc elled via OM: Order cancelled - Patient discharged Performed By: #### L 501.080 #### [facility] [address] [place], [address] RDW CV Normal 11.6-14.6 [facility] Comment on above: Result Comment: Canc elled via OM: Order cancelled - Patient discharged Performed By: #### L 501.080 #### [facility] [address] [place], [address] RDW SD Normal 35.1-43.9 [facility] Comment on above: Result Comment: Canc elled via OM: Order cancelled - Patient discharged Performed By: #### L 501.080 #### [facility] [address] [place], [address] WBC Normal 4.4-11.0 [facility] Comment on above: Result Comment: Canc elled via OM: Order cancelled - Patient discharged Performed By: #### L 501.080 #### [facility] [address] [place], [address] Basic Metabolic Profile (BMP )on 07-13-2025 BUN Normal 4-19 [facility] Comment on above: Result Comment: Canc elled via OM: Order cancelled - Patient discharged Performed By: #### L 503.7505, L500.2500 #### [facility] [address] [place], [address] BUN/CRE Normal 10-20 [facility] Comment on above: Result Comment: Canc elled via OM: Order cancelled - Patient discharged Performed By: #### L 503.7505, L500.2500 #### [facility] [address] [place], [address] Calcium Normal 7.6-11.0 [facility] Comment on above: Result Comment: Canc elled via OM: Order cancelled - Patient discharged Performed By: #### L 503.7505, L500.2500 #### [facility] [address] [place], [address] CL Normal 98-108 [facility] Comment on above: Result Comment: Canc elled via OM: Order cancelled - Patient discharged Performed By: #### L 503.7505, L500.2500 #### [facility] [address] [place], [address] CO2 Normal 21.0-32.0 [facility] Comment on above: Result Comment: Canc elled via OM: Order cancelled - Patient discharged Performed By: #### L 503.7505, L500.2500 #### [facility] [address] [place], [address] CREAT,SERUM Normal 0.70-1.20 [facility] Comment on above: Result Comment: Canc elled via OM: Order cancelled - Patient discharged Performed By: #### L 503.7505, L500.2500 #### [facility] [address] [place], [address] eGFR Normal >60 [facility] Comment on above: Result Comment: Canc elled via OM: Order cancelled - Patient discharged Performed By: #### L 503.7505, L500.2500 #### [facility] [address] [place], [address] GAP Normal 5-15 [facility] Comment on above: Result Comment: Canc elled via OM: Order cancelled - Patient discharged Performed By: #### L 503.7505, L500.2500 #### [facility] [address] [place], [address] GLU Normal 70-99 [facility] Comment on above: Result Comment: Canc elled via OM: Order cancelled - Patient discharged Performed By: #### L 503.7505, L500.2500 #### [facility] [address] [place], [address] Potassium Normal 3.3-5.1 [facility] Comment on above: Result Comment: Canc elled via OM: Order cancelled - Patient discharged Performed By: #### L 503.7505, L500.2500 #### [facility] [address] [place], [address] Basic Metabolic Profile (BMP) Normal 133-145 [facility] Comment on above: Result Comment: Canc elled via OM: Order cancelled - Patient discharged Performed By: #### L 503.7505, L500.2500 #### [facility] [address] [place], [address] CBC-Complete Blood Cnt No Di ffon 07-13-2025 HCT Normal 37-47 [facility] Comment on above: Result Comment: Canc elled via OM: Order cancelled - Patient discharged Performed By: #### L 503.7505, L500.2500 #### [facility] [address] [place], [address] HGB Normal 12.0-15.0 [facility] Comment on above: Result Comment: Canc elled via OM: Order cancelled - Patient discharged Performed By: #### L 503.7505, L500.2500 #### [facility] [address] [place], [address] MCH Normal 27.0-32.0 [facility] Comment on above: Result Comment: Canc elled via OM: Order cancelled - Patient discharged Performed By: #### L 503.7505, L500.2500 #### [facility] [address] [place], [address] MCHC Normal 32-36 [facility] Comment on above: Result Comment: Canc elled via OM: Order cancelled - Patient discharged Performed By: #### L 503.7505, L500.2500 #### [facility] [address] [place], [address] MCV Normal 81-99 [facility] Comment on above: Result Comment: Canc elled via OM: Order cancelled - Patient discharged Performed By: #### L 503.7505, L500.2500 #### [facility] [address] [place], [address] PLT Normal 150-450 [facility] Comment on above: Result Comment: Canc elled via OM: Order cancelled - Patient discharged Performed By: #### L 503.7505, L500.2500 #### [facility] [address] [place], [address] RBC Normal 4.2-5.4 [facility] Comment on above: Result Comment: Canc elled via OM: Order cancelled - Patient discharged Performed By: #### L 503.7505, L500.2500 #### [facility] [address] [place], [address] RDW CV Normal 11.6-14.6 [facility] Comment on above: Result Comment: Canc elled via OM: Order cancelled - Patient discharged Performed By: #### L 503.7505, L500.2500 #### [facility] [address] [place], [address] RDW SD Normal 35.1-43.9 [facility] Comment on above: Result Comment: Canc elled via OM: Order cancelled - Patient discharged Performed By: #### L 503.7505, L500.2500 #### [facility] [address] [place], [address] WBC Normal 4.4-11.0 [facility] Comment on above: Result Comment: Canc elled via OM: Order cancelled - Patient discharged Performed By: #### L 503.7505, L500.2500 #### [facility] [address] [place], [address] Anion gap in Serum or Plasma Ordered By: Asya Hernandez on 07-12-2025 Anion gap [Moles/Vol] 10 mmol/L 5-15 [facility] BUN/creatinine ratioOrdered By: Asya Hernandez on 07-12-2025 Urea nitrogen/Creatinine [Mass ratio] 22.9 mg/mg High - [facility] Basic Metabolic Profile (BMP )on 07-12-2025 BUN/CRE 22.9 RATIO High [facility] Comment on above: Performed By: #### L 503.7505, L500.2500 #### [facility] [address] [place], [address] Calcium [Mass/Vol] 9.1 mg/dL Normal 7.6-11.0 [facility] Comment on above: Performed By: #### L 503.7505, L500.2500 #### [facility] [address] [place], [address] Chloride [Moles/Vol] 101 mmol/L Normal 98-108 [facility] Comment on above: Performed By: #### L 503.7505, L500.2500 #### [facility] [address] [place], [address] CO2 [Moles/Vol] 29.9 mmol/L Normal 21.0-32.0 [facility] Comment on above: Performed By: #### L 503.7505, L500.2500 #### [facility] [address] [place], [address] Creatinine [Mass/Vol] 1.56 mg/dL High 0.70-1.20 [facility] Comment on above: Performed By: #### L 503.7505, L500.2500 #### [facility] [address] [place], [address] ECRCL 49.03 ml/min Low 50-250 [facility] Comment on above: Performed By: #### L 503.7505, L500.2500 #### [facility] [address] [place], [address] GAP 10 Normal 5-15 [facility] Comment on above: Performed By: #### L 503.7505, L500.2500 #### [facility] [address] [place], [address] GFR/1.73 sq M.predicted among non-blacks MDRD (S/P/Bld) [Vol rate/Area] 38 mL/min/{1.73_m2} Low >60 [facility] Comment on above: Result Comment: mL/m in/1.73m2 CKD-EPI Creatinine Equation (2020) Performed By: #### L 503.7505, L500.2500 #### [facility] [address] [place], [address] Glucose [Mass/Vol] 162 mg/dL High 70-99 [facility] Comment on above: Performed By: #### L 503.7505, L500.2500 #### [facility] [address] [place], [address] Potassium [Moles/Vol] 4.1 mmol/L Normal 3.3-5.1 [facility] Comment on above: Performed By: #### L 503.7505, L500.2500 #### [facility] [address] [place], [address] Sodium [Moles/Vol] 141 mmol/L Normal 133-145 [facility] Comment on above: Performed By: #### L 503.7505, L500.2500 #### [facility] [address] [place], [address] Urea nitrogen [Mass/Vol] 36 mg/dL High 4-19 [facility] Comment on above: Performed By: #### L 503.7505, L500.2500 #### [facility] [address] [place], [address] Bedside Glucoseon 07-12-2025 F[place] GLU 105 mg/dL Normal 74-106 [facility] Comment on above: Result Comment: BRADEN GEMENT OF PATIENT CARE PER NURSING PROTOCOL Performed By: #### L 503.7505, L500.2500 #### [facility] [address] [place], [address] FINGERSTICK GLU 151 mg/dL High 74-106 [facility] Comment on above: Result Comment: BRADEN GEMENT OF PATIENT CARE PER NURSING PROTOCOL Performed By: #### L 100.0100, L503.6005, L500.4050 #### [facility] [address] [place], [address] FINGERSTICK GLU 124 mg/dL High 74-106 [facility] Comment on above: Result Comment: BRADEN GEMENT OF PATIENT CARE PER NURSING PROTOCOL Performed By: #### L 503.7505, L500.2500 #### [facility] [address] [place], [address] CBC-Complete Blood Cnt No Di ffon 07-12-2025 Erythrocyte distribution width (RBC) [Ratio] 15.1 % High 11.6-14.6 [facility] Comment on above: Performed By: #### L 503.7505, L500.2500 #### [facility] [address] [place], [address] Hematocrit (Bld) [Volume fraction] 33.4 % Low 37-47 [facility] Comment on above: Performed By: #### L 503.7505, L500.2500 #### [facility] [address] [place], [address] Hemoglobin (Bld) [Mass/Vol] 10.4 g/dL Low 12.0-15.0 [facility] Comment on above: Performed By: #### L 503.7505, L500.2500 #### [facility] [address] [place], [address] MCH (RBC) [Entitic mass] 28.3 pg Normal 27.0-32.0 [facility] Comment on above: Performed By: #### L 503.7505, L500.2500 #### [facility] [address] [place], [address] MCHC (RBC) [Mass/Vol] 31.1 g/dL Low 32-36 [facility] Comment on above: Performed By: #### L 503.7505, L500.2500 #### [facility] [address] [place], [address] MCV (RBC) [Entitic vol] 90.8 fL Normal 81-99 [facility] Comment on above: Performed By: #### L 503.7505, L500.2500 #### [facility] [address] [place], [address] Platelet mean volume (Bld) [Entitic vol] 11.3 fL Normal 6.2-12.0 [facility] Comment on above: Performed By: #### L 503.7505, L500.2500 #### [facility] [address] [place], [address] Platelets (Bld) [#/Vol] 135 10*3/uL Low 150-450 [facility] Comment on above: Performed By: #### L 503.7505, L500.2500 #### [facility] [address] [place], [address] RBC (Bld) [#/Vol] 3.68 10*6/uL Low 4.2-5.4 [facility] Comment on above: Performed By: #### L 503.7505, L500.2500 #### [facility] [address] [place], [address] RDW SD 50.3 fl High 35.1-43.9 [facility] Comment on above: Performed By: #### L 503.7505, L500.2500 #### [facility] [address] [place], [address] WBC (Bld) [#/Vol] 5.2 10*3/uL Normal 4.4-11.0 [facility] Comment on above: Performed By: #### L 503.7505, L500.2500 #### [facility] [address] [place], [address] Carbon dioxide, total [Moles /volume] in Central venous bloodOrdered By: Asya Hernandez on 07-12-2025 CO2 [Moles/Vol] 29.9 mmol/L 21.0-32.0 [facility] Chloride assayOrdered By: Esau Hernandez on 07-12-2025 Chloride [Moles/Vol] 101 mmol/L 98-108 [facility] Discharge Instructionon Discharge Instruction [facility] Medical Records Department [address] [place] [address] Instructions for Home/Discharge Instructions 07/12/25 1457 MR#: [id number] Acct: [id number] Name: SAMANTHA ROMERO Rep #: [id number] : 1965 59 From: Asya Hernandez MD PCP: Dr. Sarina Adasm MD Status:ADM IN Discharge Instructions DC O2, CPAP, BIPAP needs Home O2 Discharge instructions: Yes Type of respiratory needs?: Oxygen (2) Oxygen frequency: Continuous Continuous oxygen liters per minute: 2 Dressing / Incision Discharge Activity: - (Increase activity as tolerated) Follow Up Care Test Results: Test results from this visit will be discussed in further detail at your follow-up appointment, if applicable. Discharge Plan Admission Admit Date/Time: 07/09/25 18:29 Primary Reason for Your Visit: Shortness of breath Attending Provider: Asya Hernandez Primary Care Provider: Sarina Adams Consulting Providers: Tavo Nielson Instructions Patient Instructions: Heart Failure Make Changes Diet, Heart Failure Dc Additional Instructions / Restrictions: DISCHARGE INSTRUCTIONS PLEASE READ *Please take this with you to your next doctors appointment* -Would recommend lab work (BMP) to check your kidney function in 2 to 3 days through your primary care physician's office. Please call their office upon discharge to obtain order for lab work. -Resume your Lasix 40 mg once in the morning and once in the afternoon, it is very important that you take these medications on time -Weigh yourself every day. A sudden weight gain can mean you are retaining fluid. Weigh yourself at the same time of day and in the same kind of clothes. Ideally, weigh yourself first thing in the morning after you empty your bladder, but before you eat breakfast. -Please call your physician if your weight goes up by more than 2 pounds in 1 day or 5 pounds in 1 week. This can be a sign that you are retaining more fluid than you should be. Clues to weight gain include checking your ankles for swelling, or noticing you are short of breath when you lie down -Please limit your sodium intake to less than 3 g/day. And your fluid intake to less than 1800 mL a day Here are tips: Limit canned, dried, packaged, and fast foods. Don't add salt to your food at the table. Season foods with herbs instead of salt when you cook. When you eat out, ask that the chef de cuisine not add any salt to your dish. Don't eat fried or greasy foods. Be careful of bottled beverages. They can contain a lot of salt -Call 911 right away if you have: -Severe shortness of breath, such that you can't catch your breath even while resting -Severe chest pain that does not resolve with rest or nitroglycerin -[place], foamy mucus with cough and shortness of breath -An ongoing rapid or irregular heartbeat -Passing out or fainting -Stroke symptoms such as sudden numbness or weakness on one side of your face, arm, or leg or sudden confusion, trouble speaking or vision changes -Take levothyroxine on an empty stomach with 1 cup of water (250ml) at least four hours after eating. Then wait minutes before consuming any other food or beverage, especially coffee. This medicine will work best if you take it about at the same time every day. Separate levothyroxine from vitamins and antacids or medicines with calcium or iron by at least 4 hours before and after taking this medicine. Stop taking any biotin supplement 4 days prior to having labs drawn. It is important you keep taking each dose of this medicine on time even if you are feeling well. If you forget to take a dose on time, take in as soon as you remember unless it is almost time for the next dose and return to your normal schedule. Do not take two doses at one time - Would advise you discontinue meloxicam as this can be hard on the kidneys - Jardiance was taken off your medication list as it was indicated they are not taking this -Please call your primary care provider's office upon discharge to schedule a hospital follow up within 1 week. -For any concerning signs or symptoms please call 911 or proceed to the nearest emergency department Discharge Orders/Prescriptions Prescriptions: Continued estradiol 0.01 % (0.1 mg/gram) cream 3 g VAGINAL .COMPLEX Patient Comments: insert 3 grams vaginally two times a week PT HAS NOT BEEN USING LATELY. Rx Instructions: 3 grams vaginally 2 TIMES PER WEEK; fenofibrate 160 mg tablet 160 mg PO DAILY Patient Comments: take 1 tablet by mouth once daily vitamin E 400 unit Capsule 400 unit PO DAILY dicyclomine 10 mg capsule 10 mg PO ACHS Patient Comments: take 1 capsule by mouth four times a day before meals and at bedtime FOR ABDOMINAL PAIN. PT HAS NOT YET PICKED UP THE RX rosuvastatin 10 mg tablet 10 mg PO DAILY Patient Comments: take 1 tablet by mouth at bedtime insulin degludec [Tresiba FlexTouc (more content not included)... Normal [facility] Erythrocyte distribution wid th ratioOrdered By: Asya Hernandez on 07-12-2025 Erythrocyte distribution width (RBC) [Ratio] 15.1 % High 11.6-14.6 [facility] Erythrocyte distribution wid th standard deviationOrdered By: Asya Hernandez on 07-12-2025 Erythrocyte distribution width (RBC) [Ratio] 50.3 fl High 35.1-43.9 [facility] Glomerular filtration rate ( GFR) estimation/1.73 sq m using serum, plasma, or whole bOrdered By: Asya Hernandez on 07-12-2025 GFR/1.73 sq M.predicted among non-blacks MDRD (S/P/Bld) [Vol rate/Area] 38 mL/min/{1.73_m2} Low >60 [facility] Comment on above: mL/min/1.73m2 CKD-EP I Creatinine Equation (2020) [facility] deOrdered By: Asya Hernandez on 07-12-2025 Glucose [Mass/Vol] 105 mg/dL 74-106 [facility] Comment on above: MANAGEMENT OF PATIEN T CARE PER NURSING PROTOCOL Hematocrit Auto (Bld) [Volum e fraction]Ordered By: Asya Hernandez on 07-12-2025 Hematocrit (Bld) [Volume fraction] 33.4 % Low 37-47 [facility] Hemoglobin measurementOrdere d By: Asya Hernandez on 07-12-2025 Hemoglobin (Bld) [Mass/Vol] 10.4 g/dL Low 12.0-15.0 [facility] MCV (mean corpuscular volume ) determinationOrdered By: Asya Hernandez on 07-12-2025 MCV (RBC) [Entitic vol] 90.8 fL 81-99 [facility] Mean corpuscular hemoglobin (MCH) determinationOrdered By: Asya Hernandez on 07-12-2025 MCH (RBC) [Entitic mass] 28.3 pg 27.0-32.0 [facility] Mean corpuscular hemoglobin concentration (MCHC) determinationOrdered By: Asya Hernandez on 07-12-2025 MCHC (RBC) [Mass/Vol] 31.1 g/dL Low 32-36 [facility] Mean platelet volume determi nationOrdered By: Asya Hernandez on 07-12-2025 Platelet mean volume (Bld) [Entitic vol] 11.3 fL 6.2-12.0 [facility] Platelet countOrdered By: Esau Hernandez on 07-12-2025 Platelets (Bld) [#/Vol] 135 10*3/uL Low 150-450 [facility] Potassium measurement (mass/ volume)Ordered By: Asya Hernandez on 07-12-2025 Potassium (Unsp spec) [Mass/Vol] 4.1 mmol/L 3.3-5.1 [facility] RBC Auto (Bld) [#/Vol]Ordere d By: Asya Hernandez on 07-12-2025 RBC (Bld) [#/Vol] 3.68 10*6/uL Low 4.2-5.4 [facility] Serum creatinine measurement (mass/volume)Ordered By: Asya Hernandez on 07-12-2025 Creatinine [Mass/Vol] 1.56 mg/dL High 0.70-1.20 [facility] Serum glucose measurement (m ass/volume)Ordered By: Asya Hernandez on 07-12-2025 Glucose [Mass/Vol] 162 mg/dL High 70-99 [facility] Serum or plasma calcium brando urement (mass/volume)Ordered By: Asya Hernandez on 07-12-2025 Calcium [Mass/Vol] 9.1 mg/dL 7.6-11.0 [facility] Serum or plasma urea nitroge n measurement (mass/volume)Ordered By: Asya Hernandez on 07-12-2025 Urea nitrogen [Mass/Vol] 36 mg/dL High 4-19 [facility] Sodium levelOrdered By: Phan Hernandez on 07-12-2025 Sodium [Moles/Vol] 141 mmol/L 133-145 [facility] White blood cell (WBC) count Ordered By: Asya Hernandez on 07-12-2025 WBC (Bld) [#/Vol] 5.2 10*3/uL 4.4-11.0 [facility] Basic Metabolic Profile (BMP )on 07-11-2025 BUN/CRE 21.9 RATIO High 10-20 [facility] Comment on above: Performed By: #### L 501.080 #### [facility] [address] [place], [address] Calcium [Mass/Vol] 9.2 mg/dL Normal 7.6-11.0 [facility] Comment on above: Performed By: #### L 501.080 #### [facility] [address] [place], [address] Chloride [Moles/Vol] 103 mmol/L Normal 98-108 [facility] Comment on above: Performed By: #### L 501.080 #### [facility] [address] [place], [address] CO2 [Moles/Vol] 30.9 mmol/L Normal 21.0-32.0 [facility] Comment on above: Performed By: #### L 501.080 #### [facility] [address] [place], [address] Creatinine [Mass/Vol] 1.52 mg/dL High 0.70-1.20 [facility] Comment on above: Performed By: #### L 501.080 #### [facility] [address] [place], [address] ECRCL 50.90 ml/min Normal 50-250 [facility] Comment on above: Performed By: #### L 501.080 #### [facility] [address] [place], [address] GAP 9 Normal 5-15 [facility] Comment on above: Performed By: #### L 501.080 #### [facility] [address] [place], [address] GFR/1.73 sq M.predicted among non-blacks MDRD (S/P/Bld) [Vol rate/Area] 39 mL/min/{1.73_m2} Low >60 [facility] Comment on above: Result Comment: mL/m in/1.73m2 CKD-EPI Creatinine Equation (2020) Performed By: #### L 501.080 #### [facility] [address] [place], [address] Glucose [Mass/Vol] 127 mg/dL High 70-99 [facility] Comment on above: Performed By: #### L 501.080 #### [facility] [address] [place], [address] Potassium [Moles/Vol] 4.0 mmol/L Normal 3.3-5.1 [facility] Comment on above: Performed By: #### L 501.080 #### [facility] [facility] [address] [place], [address] Sodium [Moles/Vol] 143 mmol/L Normal 133-145 [facility] Comment on above: Performed By: #### L 501.080 #### [facility] [address] [place], [address] Urea nitrogen [Mass/Vol] 33 mg/dL High 4-19 [facility] Comment on above: Performed By: #### L 501.080 #### [facility] [address] [place], [address] Bedside Glucoseon 07-11-2025 FINGERSTICK GLU 177 mg/dL High 74-106 [facility] Comment on above: Result Comment: BRADEN GEMENT OF PATIENT CARE PER NURSING PROTOCOL Performed By: #### L 100.0100, L503.6005, L500.4050 #### [facility] [address] [place], [address] FINGERSTICK GLU 201 mg/dL High 74-106 [facility] Comment on above: Result Comment: BRADEN GEMENT OF PATIENT CARE PER NURSING PROTOCOL Performed By: #### L 501.080 #### [facility] [address] [place], [address] FINGERSTICK GLU 118 mg/dL High 74-106 [facility] Comment on above: Result Comment: BRADEN GEMENT OF PATIENT CARE PER NURSING PROTOCOL Performed By: #### L 501.080 #### [facility] [address] [place], [address] FINGERSTICK GLU 103 mg/dL Normal 74-106 [facility] Comment on above: Result Comment: BRADEN GEMENT OF PATIENT CARE PER NURSING PROTOCOL Performed By: #### L 501.080 #### [facility] [address] [place], [address] CBC-Complete Blood Cnt No Di ffon 07-11-2025 Erythrocyte distribution width (RBC) [Ratio] 15.4 % High 11.6-14.6 [facility] Comment on above: Performed By: #### L 501.080 #### [facility] [address] [place], [address] Hematocrit (Bld) [Volume fraction] 33.9 % Low 37-47 [facility] Comment on above: Performed By: #### L 501.080 #### [facility] [address] [place], [address] Hemoglobin (Bld) [Mass/Vol] 10.6 g/dL Low 12.0-15.0 [facility] Comment on above: Performed By: #### L 501.080 #### [facility] [address] [place], [address] MCH (RBC) [Entitic mass] 28.5 pg Normal 27.0-32.0 [facility] Comment on above: Performed By: #### L 501.080 #### [facility] [address] [place], [address] MCHC (RBC) [Mass/Vol] 31.3 g/dL Low 32-36 [facility] Comment on above: Performed By: #### L 501.080 #### [facility] [address] [place], [address] MCV (RBC) [Entitic vol] 91.1 fL Normal 81-99 [facility] Comment on above: Performed By: #### L 501.080 #### [facility] [address] [place], [address] Platelet mean volume (Bld) [Entitic vol] 11.4 fL Normal 6.2-12.0 [facility] Comment on above: Performed By: #### L 501.080 #### [facility] [address] [place], [address] Platelets (Bld) [#/Vol] 128 10*3/uL Low 150-450 [facility] Comment on above: Performed By: #### L 501.080 #### [facility] [address] [place], [address] RBC (Bld) [#/Vol] 3.72 10*6/uL Low 4.2-5.4 [facility] Comment on above: Performed By: #### L 501.080 #### [facility] [address] [place], [address] RDW SD 51.5 fl High 35.1-43.9 [facility] Comment on above: Performed By: #### L 501.080 #### [facility] [address] [place], [address] WBC (Bld) [#/Vol] 5.2 10*3/uL Normal 4.4-11.0 [facility] Comment on above: Performed By: #### L 501.080 #### [facility] [address] [place], [address] Electrocardiogram reportOrde red By: Ed Barraza on 07-11-2025 EKG study [facility] [address] [place] [address] 12 Lead EKG 07/09/25 1640 MR#: [id number] Acct: [id number] Name: SAMANTHA ROMERO Rep #:[id number] : 1965 59 From: Ed Barraza MD Attending Dr: Dr. Asya Hernandez MD Status: ADM IN Ordering Dr: Niranjan Leblanc DO Date: Location: [facility] Sex: F C Admitted: 07/09/25 Test Reason : SOB Blood Pressure : */* mmHG Vent. Rate : 70 BPM Atrial Rate : 70 BPM P-R Int : 202 ms QRS Dur : 100 ms QT Int : 428 ms P-R-T Axes : 18 2 36 degrees QTcB Int : 462 ms Normal sinus rhythm Normal ECG Confirmed by ED BARRAZA MD ([id number]), editor school photograph ALICJA DE LA PAZ ([id number]) on 51:21:20 PM Referred By: Confirmed By: ED BARRAZA MD 07/11/25 1321 Date _ Ed Barraza MD CC: Dr. Sarina Adams MD; Dr. Asya Hernandez MD; Dr. Niranjan Leblanc DO ~ Signed [facility] Work Phone: Absolute lymphocyte countOrd ered By: Tavo Nielson on 07-10-2025 Lymphocytes Auto (Unsp spec) [#/Vol] 1.21 10*3/uL 0.83-4.51 [facility] Absolute neutrophil countOrd ered By: Tavo Nielson on 07-10-2025 Neutrophils (Bld) [#/Vol] 3.1 10*3/uL 2.0-7.7 [facility] Automated lymphocyte count a s percentage of total leukocytesOrdered By: Tavo Nielson on 07-10-2025 Lymphocytes/100 WBC Auto (Unsp spec) 23.4 % 19-41 [facility] Basic Metabolic Profile (BMP )on 07-10-2025 BUN/CRE 24.3 RATIO High 10-20 [facility] Comment on above: Performed By: #### L 501.080 #### [facility] [address] [place], [address] Calcium [Mass/Vol] 9.1 mg/dL Normal 7.6-11.0 [facility] Comment on above: Performed By: #### L 501.080 #### [facility] [address] [place], [address] Chloride [Moles/Vol] 108 mmol/L Normal 98-108 [facility] Comment on above: Performed By: #### L 501.080 #### [facility] [address] [place], [address] CO2 [Moles/Vol] 29.4 mmol/L Normal 21.0-32.0 [facility] Comment on above: Performed By: #### L 501.080 #### [facility] [address] [place], [address] Creatinine [Mass/Vol] 1.34 mg/dL High 0.70-1.20 [facility] Comment on above: Performed By: #### L 501.080 #### [facility] [address] [place], [address] ECRCL 57.45 ml/min Normal 50-250 [facility] Comment on above: Performed By: #### L 501.080 #### [facility] [address] [place], [address] GAP 8 Normal 5-15 [facility] Comment on above: Performed By: #### L 501.080 #### [facility] [address] [place], [address] GFR/1.73 sq M.predicted among non-blacks MDRD (S/P/Bld) [Vol rate/Area] 46 mL/min/{1.73_m2} Low >60 [facility] Comment on above: Result Comment: mL/m in/1.73m2 CKD-EPI Creatinine Equation (2020) Performed By: #### L 501.080 #### [facility] [address] [place], [address] Glucose [Mass/Vol] 124 mg/dL High 70-99 [facility] Comment on above: Performed By: #### L 501.080 #### [facility] [address] [place], [address] Potassium [Moles/Vol] 4.0 mmol/L Normal 3.3-5.1 [facility] Comment on above: Performed By: #### L 501.080 #### [facility] [address] [place], [address] Sodium [Moles/Vol] 145 mmol/L Normal 133-145 [facility] Comment on above: Performed By: #### L 501.080 #### [facility] [address] [place], [address] Urea nitrogen [Mass/Vol] 33 mg/dL High 4-19 [facility] Comment on above: Performed By: #### L 501.080 #### [facility] [address] [place], [address] Basophil percentageOrdered B y: Tavo Nielson on 07-10-2025 Basophils/100 WBC (Bld) 0.4 % 0-1 [facility] Bedside Glucoseon 07-10-2025 FINGERSTICK GLU 100 mg/dL Normal 74-106 [facility] Comment on above: Result Comment: BRADEN GEMENT OF PATIENT CARE PER NURSING PROTOCOL Performed By: #### L 501.080 #### [facility] [address] [place], [address] FINGERSTICK GLU 97 mg/dL Normal 74-106 [facility] Comment on above: Result Comment: BRADEN GEMENT OF PATIENT CARE PER NURSING PROTOCOL Performed By: #### L 501.080 #### [facility] [address] [place], [address] FINGERSTICK GLU 93 mg/dL Normal 74-106 [facility] Comment on above: Result Comment: BRADEN GEMENT OF PATIENT CARE PER NURSING PROTOCOL Performed By: #### L 501.080 #### [facility] [address] [place], [address] FINGERSTICK GLU 81 mg/dL Normal 74-106 [facility] Comment on above: Result Comment: BRADEN GEMENT OF PATIENT CARE PER NURSING PROTOCOL Performed By: #### L 100.0100, L503.6005, L500.4050 #### [facility] [address] [place], [address] CBC W/Diff, Automatedon 10-0 7-2025 Absolute Lymph 1.21 X10 3/uL Normal 0.83-4.51 [facility] Comment on above: Performed By: #### L 501.080 #### [facility] [address] [place], [address] Absolute Neut 3.1 X10 3/uL Normal 2.0-7.7 [facility] Comment on above: Performed By: #### L 501.080 #### [facility] [address] [place], [address] Basophils/100 WBC (Bld) 0.4 % Normal 0-1 [facility] Comment on above: Performed By: #### L 501.080 #### [facility] [address] [place], [address] Eosinophils/100 WBC (Bld) 6.8 % High 0-5 [facility] Comment on above: Performed By: #### L 501.080 #### [facility] [address] [place], [address] Erythrocyte distribution width (RBC) [Ratio] 15.5 % High 11.6-14.6 [facility] Comment on above: Performed By: #### L 501.080 #### [facility] [address] [place], [address] Hematocrit (Bld) [Volume fraction] 32.9 % Low 37-47 [facility] Comment on above: Performed By: #### L 501.080 #### [facility] [address] [place], [address] Hemoglobin (Bld) [Mass/Vol] 10.4 g/dL Low 12.0-15.0 [facility] Comment on above: Performed By: #### L 501.080 #### [facility] [address] [place], [address] IG% 0.800 Normal 0.0-0.9 [facility] Comment on above: Result Comment: IG% - Immature Granulocytes (promyelocytes, myelocytes and metamyelocytes) > 1% indicates that a LEFT SHIFT is Present. Performed By: #### L 501.080 #### [facility] [address] [place], [address] Lymphocytes/100 WBC (Bld) 23.4 % Normal 19-41 [facility] Comment on above: Performed By: #### L 501.080 #### [facility] [address] [place], [address] MCH (RBC) [Entitic mass] 28.3 pg Normal 27.0-32.0 [facility] Comment on above: Performed By: #### L 501.080 #### [facility] [address] [place], [address] MCHC (RBC) [Mass/Vol] 31.6 g/dL Low 32-36 [facility] Comment on above: Performed By: #### L 501.080 #### [facility] [address] [place], [address] MCV (RBC) [Entitic vol] 89.6 fL Normal 81-99 [facility] Comment on above: Performed By: #### L 501.080 #### [facility] [address] [place], [address] Monocytes/100 WBC (Bld) 9.5 % Normal 0-10 [facility] Comment on above: Performed By: #### L 501.080 #### [facility] [address] [place], [address] Neutrophils/100 WBC (Bld) 59.1 % Normal 47-70 [facility] Comment on above: Performed By: #### L 501.080 #### [facility] [address] [place], [address] Nucleated RBC (Bld) [#/Vol] 0 10*3/uL Normal 0-5 [facility] Comment on above: Performed By: #### L 501.080 #### [facility] [address] [place], [address] Platelet mean volume (Bld) [Entitic vol] 11.6 fL Normal 6.2-12.0 [facility] Comment on above: Performed By: #### L 501.080 #### [facility] [address] [place], [address] Platelets (Bld) [#/Vol] 135 10*3/uL Low 150-450 [facility] Comment on above: Performed By: #### L 501.080 #### [facility] [address] [place], [address] RBC (Bld) [#/Vol] 3.67 10*6/uL Low 4.2-5.4 [facility] Comment on above: Performed By: #### L 501.080 #### [facility] [address] [place], [address] RDW SD 50.6 fl High 35.1-43.9 [facility] Comment on above: Performed By: #### L 501.080 #### [facility] [address] [place], [address] WBC (Bld) [#/Vol] 5.2 10*3/uL Normal 4.4-11.0 [facility] Comment on above: Performed By: #### L 501.080 #### [facility] [address] [place], [address] Echocardiogram study reportO rdered By: Ed Barraza on 07-10-2025 Study report [facility] [address] [place] [address] Echo Complete 07/10/25 0841 MR#: [id number] Acct: [id number] Name: ANYEMERITAKate Manning Rep #:[id number] : 1965 59 From: Ed Duarte Attending Dr: Dr. Asya Hernandez MD Status: ADM IN Ordering Dr: Tavo Nielson DO Date: Location: PCU Sex: F C Admitted: 07/09/25 Reason For Study Reason For Study: CHF Procedure This was a 2D Doppler, Color Flow transthoracic echocardiogram. Exam performed portable in patient room. Left Ventricle Normal LV size. Mild concentric left ventricular hypertrophy. Left ventricular systolic function is normal. The left ventricular ejection fraction is 55 %. No regional wall motion abnormalities noted. Right Ventricle Normal RV size. Normal systolic function. Atria Normal left atrium. Normal right atrium. Mitral Valve There is mild mitral annular calcification. Mild (1+) eccentric mitral valve insufficiency. Tricuspid Valve Normal tricuspid valve. Mild (1+) tricuspid valve insufficiency. Pulmonary artery systolic pressure is 32 mmHg. Aortic Valve Trisinus/trileaflet aortic valve. Mild (1+) aortic valve insufficiency. Pulmonic Valve Normal pulmonic valve. Great Vessels Normal aortic root. The pulmonary artery is normal size. Inferior vena cava collapse with respiration. Pericardium/Pleural Small (<1.0 cm) pericardial effusion. There are no echocardiographic indicationsof cardiac tamponade. MMode/2D Measurements & Calculations LVIDd: 5.1 cm IVSd: 1.4 cm Ao root diam: 3.4 cm LVIDs: 3.2 cm LVPWd: 1.4 cm RVDd: 3.3 cm FS: 37.9 % LAV(MOD-bp): 55.0 ml LVAd ap4: 33.1 cm2 SV(MOD-sp4): 57.0 ml LAV(MOD-bp) Indexed: 25.4 ml/m2 LVLd ap4: 8.8 cm SI(MOD-sp4): 26.3 ml/m2 LAV(MOD-sp2): 51.6 ml EDV(MOD-sp4): 105.1 ml LAV(MOD-sp4): 57.9 ml EDV(sp4-el): 105.6 ml LVAs ap4: 20.4 cm2 LVLs ap4: 7.9 cm ESV(MOD-sp4): 48.1 ml ESV(sp4-el): 44.9 ml EF(MOD-sp4): 54.2 % EF(sp4-el): 57.5 % _ SV(sp4-el): 60.7 ml LA A4 area: 21.0 cm2 LA dimension(2D): 4.7 cm _ RA A4 area: 12.2 cm2 Time Measurements MV dec time: 0.17 sec Doppler Measurements & Calculations MV E max ricardo: 108.5 cm/sec Lat Peak E' Ricardo: 8.5 cm/sec Med Peak E' Ricardo: 5.9 cm/sec MV A max ricardo: 95.0 cm/sec E/E' lat: 12.7 E/E' med: 18.3 MV E/A: 1.1 _ MV V2 max: 106.6 cm/sec MV P1/2t max ricardo: 107.8 cm/sec Ao V2 max: 139.1 cm/sec MV max P.5 mmHg MV P1/2t: 60.2 msec Ao max P.7 mmHg MV V2 mean: 65.8 cm/sec Ao V2 mean: 93.7 cm/sec MV mean P.0 mmHg MV dec slope: 524.8 cm/sec2 Ao mean P.1 mmHg MV V2 VTI: 30.6 cm MVA(P1/2t): 3.7 cm2 Ao V2 VTI: 32.7 cm AV (velocity ratio): 0.88 AI max ricardo: 357.8 cm/sec LV V1 max: 112.9 cm/sec PA V2 max: 92.4 cm/sec AI max P.2 mmHg LV V1 max P.1 mmHg LV V1 mean P.1 mmHg AI dec slope: 222.8 cm/sec2 LV V1 mean: 82.2 cm/sec AI P1/2t: 470.4 msec LV V1 VTI: 28.6 cm _ TR max ricardo: 264.8 cm/sec TR max P.1 mmHg ECHO/Echo Complete Interpretation Summary Normal LV size. Left ventricular systolic function is normal. The left ventricular ejection fraction is 55 %. Small (<1.0 cm) pericardial effusion. There are no echocardiographic indications of cardiac tamponade. Mild (1+) aortic valve insufficiency. Ordering Physician: Tavo Nielson Performed By: Shane Hart RCS 07/10/251102 Date _ Ed Barraza MD CC: Dr. Tavo Nielson DO; Dr. Sarina Adams MD; Dr. Asya Hernandez MD ~ Date Dictated: 07/10/25840 Date Transcribed: 07/10/251102 [employer] Drafter: Signed [facility] Work Phone: Eosinophil percentageOrdered By: Tavo Nielson on 07-10-2025 Eosinophils/100 WBC (Bld) 6.8 % High 0-5 [facility] Hemoglobin A1con 07-10-2025 HbA1c (Bld) [Mass fraction] 8.5 % High <=5.6 [facility] Comment on above: Result Comment: Norm al < 5.7 % Prediabetic 5.7 - 6.4 % Diabetic >or= 6.5 % Please note range changes. Performed By: #### L 501.080 #### [facility] [address] [place], [place], [address] Hemoglobin A1c percentageOrd ered By: Tavo Nielson on 07-10-2025 HbA1c (Bld) [Mass fraction] 8.5 % High <5.7 [facility] Comment on above: Normal < 5.7 % Predi abetic 5.7 - 6.4 % Diabetic >or= 6.5 % Please note range changes. Immature granulocytes/100 WB C Auto (Bld)Ordered By: Tavo Nielson on 07-10-2025 Immature granulocytes/100 WBC (Bld) 0.800 % 0.0-0.9 [facility] Comment on above: IG% - Immature Granu locytes (promyelocytes, myelocytes and metamyelocytes) > 1% indicates that a LEFT SHIFT is Present. Monocyte percentageOrdered B y: Tavo Nielson on 07-10-2025 Monocytes/100 WBC (Bld) 9.5 % 0-10 [facility] Neutrophil percentageOrdered By: Tavo Nielson on 07-10-2025 Neutrophils/100 WBC (Bld) 59.1 % 47-70 [facility] Nucleated red blood cell per centageOrdered By: Tavo Nielson on 07-10-2025 Nucleated RBC/100 WBC (Bld) [Ratio] 0 % 0-5 [facility] TSH DL <= 0.005 mIU/L QnOrde red By: Asya Hernandez on 07-10-2025 TSH Qn 15.900 uIU/mL High 0.300-4.200 [facility] Thyroid Stim Hormone (TSH)on 07-10-2025 TSH 15.900 uIU/mL High 0.300-4.200 [facility] Comment on above: Order Comment: Comme nts: Add onto previous labs if possible Performed By: #### L 501.080 #### [facility] [address] [place], [address] 12 Lead EKGon 07-09-2025 12 Lead EKG [facility] [address] [place] [address] 12 Lead EKG 07/09/25 1640 MR#: [id number] Acct: [id number] Name: SAMANTHA ROMERO Rep #: [id number] : 1965 59 From: Ed Barraza MD Attending Dr: Dr. Asya Hernandez MD Status: ADM IN Ordering Dr: Niranjan Leblanc DO Date: 07/09/25 Location: [facility] Sex: F C Admitted: 07/09/25 Test Reason : SOB Blood Pressure : */* mmHG Vent. Rate : 70 BPM Atrial Rate : 70 BPM P-R Int : 202 ms QRS Dur : 100 ms QT Int : 428 ms P-R-T Axes : 18 2 36 degrees QTcB Int : 462 ms Normal sinus rhythm Normal ECG Confirmed by ED BARRAZA MD ([id number]), editor school photograph ALICJA DE LA PAZ ([id number]) on 07/11/2025 1:21:20 PM Referred By: Confirmed By: ED BARRAZA MD 07/11/25 1321 Date Ed Barraza MD CC: Dr. Sarina Adams MD; Dr. Asya Hernandez MD; Dr. Niranjan Leblanc DO Signed Normal [facility] Absolute lymphocyte countOrd ered By: Niranjan Leblanc on 07-09-2025 Lymphocytes Auto (Unsp spec) [#/Vol] 0.84 10*3/uL 0.83-4.51 [facility] Absolute neutrophil countOrd ered By: Niranjan Leblanc on 07-09-2025 Neutrophils (Bld) [#/Vol] 3.9 10*3/uL 2.0-7.7 [facility] Anion gap in Serum or Plasma Ordered By: Niranjan Leblanc on 07-09-2025 Anion gap [Moles/Vol] 10 mmol/L 5-15 [facility] Automated lymphocyte count a s percentage of total leukocytesOrdered By: Niranjan Leblanc on 07-09-2025 Lymphocytes/100 WBC Auto (Unsp spec) 15.5 % Low 19-41 [facility] BUN/creatinine ratioOrdered By: Niranjan Leblanc on 07-09-2025 Urea nitrogen/Creatinine [Mass ratio] 26.6 mg/mg High 07-23 [facility] Basic Metabolic Profile (BMP )on 07-09-2025 BUN/CRE 26.6 RATIO High 07-23 [facility] Comment on above: Performed By: #### L 503.7505, L500.2500 #### [facility] [address] [place], [address] Calcium [Mass/Vol] 9.0 mg/dL Normal 7.6-11.0 [facility] Comment on above: Performed By: #### L 503.7505, L500.2500 #### [facility] [address] [place], [address] Chloride [Moles/Vol] 107 mmol/L Normal 98-108 [facility] Comment on above: Performed By: #### L 503.7505, L500.2500 #### [facility] [address] [place], [address] CO2 [Moles/Vol] 26.4 mmol/L Normal 21.0-32.0 [facility] Comment on above: Performed By: #### L 503.7505, L500.2500 #### [facility] [facility] [address] [place], [address] Creatinine [Mass/Vol] 1.15 mg/dL Normal 0.70-1.20 [facility] Comment on above: Performed By: #### L 503.7505, L500.2500 #### [facility] [address] [place], [address] ECRCL 66.59 ml/min Normal 50-250 [facility] Comment on above: Performed By: #### L 503.7505, L500.2500 #### [facility] [address] [place], [address] GAP 10 Normal 5-15 [facility] Comment on above: Performed By: #### L 503.7505, L500.2500 #### [facility] [address] [place], [address] GFR/1.73 sq M.predicted among non-blacks MDRD (S/P/Bld) [Vol rate/Area] 55 mL/min/{1.73_m2} Low >60 [facility] Comment on above: Result Comment: mL/m in/1.73m2 CKD-EPI Creatinine Equation (2020) Performed By: #### L 503.7505, L500.2500 #### [facility] [address] [place], [address] Glucose [Mass/Vol] 225 mg/dL High 70-99 [facility] Comment on above: Performed By: #### L 503.7505, L500.2500 #### [facility] [address] [place], [address] Potassium [Moles/Vol] 4.6 mmol/L Normal 3.3-5.1 [facility] Comment on above: Performed By: #### L 503.7505, L500.2500 #### [facility] [address] [place], [address] Sodium [Moles/Vol] 143 mmol/L Normal 133-145 [facility] Comment on above: Performed By: #### L 503.7505, L500.2500 #### [facility] [address] [place], [address] Urea nitrogen [Mass/Vol] 31 mg/dL High 4-19 [facility] Comment on above: Performed By: #### L 503.7505, L500.2500 #### [facility] [address] [place], [address] Basophil percentageOrdered B y: Niranjan Leblanc on 07-09-2025 Basophils/100 WBC (Bld) 0.4 % 0-1 [facility] Bedside Glucoseon 07-09-2025 FINGERSTICK GLU 210 mg/dL High 74-106 [facility] Comment on above: Result Comment: BRADEN PAZ OF PATIENT CARE PER NURSING PROTOCOL Performed By: #### L 501.080 #### [facility] [address] [place], [address] CBC W/Diff, Automatedon Absolute Lymph 0.84 X10 3/uL Normal 0.83-4.51 [facility] Comment on above: Performed By: #### L 100.0100, L503.6005, L500.4050 #### [facility] [address], [address] Absolute Neut 3.9 X10 3/uL Normal 2.0-7.7 [facility] Comment on above: Performed By: #### L 100.0100, L503.6005, L500.4050 #### [facility] [address] [place], [address] Basophils/100 WBC (Bld) 0.4 % Normal 0-1 [facility] Comment on above: Performed By: #### L 100.0100, L503.6005, L500.4050 #### [facility] [address] [place], [address] Eosinophils/100 WBC (Bld) 4.4 % Normal 0-5 [facility] Comment on above: Performed By: #### L 100.0100, L503.6005, L500.4050 #### [facility] [address] [place], [address] Erythrocyte distribution width (RBC) [Ratio] 15.1 % High 11.6-14.6 [facility] Comment on above: Performed By: #### L 100.0100, L503.6005, L500.4050 #### [facility] [address] [place], [address] Hematocrit (Bld) [Volume fraction] 35.9 % Low 37-47 [facility] Comment on above: Performed By: #### L 100.0100, L503.6005, L500.4050 #### [facility] [address] [place], [address] Hemoglobin (Bld) [Mass/Vol] 11.0 g/dL Low 12.0-15.0 [facility] Comment on above: Performed By: #### L 100.0100, L503.6005, L500.4050 #### [facility] [address] [place], [address] IG% 0.700 Normal 0.0-0.9 [facility] Comment on above: Result Comment: IG% - Immature Granulocytes (promyelocytes, myelocytes and metamyelocytes) > 1% indicates that a LEFT SHIFT is Present. Performed By: #### L 100.0100, L503.6005, L500.4050 #### [facility] [address] [place], [address] Lymphocytes/100 WBC (Bld) 15.5 % Low 19-41 [facility] Comment on above: Performed By: #### L 100.0100, L503.6005, L500.4050 #### [facility] [address] [place], [address] MCH (RBC) [Entitic mass] 27.8 pg Normal 27.0-32.0 [facility] Comment on above: Performed By: #### L 100.0100, L503.6005, L500.4050 #### [facility] [address] [place], [address] MCHC (RBC) [Mass/Vol] 30.6 g/dL Low 32-36 [facility] Comment on above: Performed By: #### L 100.0100, L503.6005, L500.4050 #### [facility] [address] [place], [address] MCV (RBC) [Entitic vol] 90.9 fL Normal 81-99 [facility] Comment on above: Performed By: #### L 100.0100, L503.6005, L500.4050 #### [facility] [address] [place], [address] Monocytes/100 WBC (Bld) 7.2 % Normal 0-10 [facility] Comment on above: Performed By: #### L 100.0100, L503.6005, L500.4050 #### [facility] [address] [place], [address] Neutrophils/100 WBC (Bld) 71.8 % High 47-70 [facility] Comment on above: Performed By: #### L 100.0100, L503.6005, L500.4050 #### [facility] [address] [place], [address] Nucleated RBC (Bld) [#/Vol] 0 10*3/uL Normal 0-5 [facility] Comment on above: Performed By: #### L 100.0100, L503.6005, L500.4050 #### [facility] [address] [place], [address] Platelet mean volume (Bld) [Entitic vol] 11.2 fL Normal 6.2-12.0 [facility] Comment on above: Performed By: #### L 100.0100, L503.6005, L500.4050 #### [facility] [address] [place], [address] Platelets (Bld) [#/Vol] 131 10*3/uL Low 150-450 [facility] Comment on above: Performed By: #### L 100.0100, L503.6005, L500.4050 #### [facility] [address] [place], [address] RBC (Bld) [#/Vol] 3.95 10*6/uL Low 4.2-5.4 [facility] Comment on above: Performed By: #### L 100.0100, L503.6005, L500.4050 #### [facility] [address] [place], [address] RDW SD 50.4 fl High 35.1-43.9 [facility] Comment on above: Performed By: #### L 100.0100, L503.6005, L500.4050 #### [facility] [address] [place], [address] WBC (Bld) [#/Vol] 5.4 10*3/uL Normal 4.4-11.0 [facility] Comment on above: Performed By: #### L 100.0100, L503.6005, L500.4050 #### [facility] [address] [place], [address] CNOVon 07-09-2025 CNOV Office Visit (PULWS ) -------- SAMANTHA ROMERO ([id number]) 1965 F Date Time Provider Department 07/09/25 2:00 PM KAY PAREDES PULGUERA During your visit today, we recorded the following information about you: Pulse Respiration Blood pressure Weight 68/minute 16/minute 116/68 119.7 kg Kay Paredes APRN.CNP 07/09/2025 4:30 PM Signed LUNG SCREENING ANNUAL VISIT PRIMARY CARE PHYSICIAN: Sarina Adams MD PULMONARY PROVIDER: Brooke CIFUENTES Results will be communicated via letter or electronic record if applicable. Visit Delivery: In Person Patient Visit Type: established Current or Ex-smoker? Quit Exam Type: annual LDCT Number of Pack Years: 30 Current smoker (=0) or Number of Years since Quit: 11.7 The patient's smoking history is similar to prior year shared decision visit. The reason for the discrepancy is NA Chief Complaint: Established patient in lung cancer screening program here for annual follow-up. Impression / Recommendations Samantha Romero presents for annual lung cancer screening annual exam and nodule evaluation. Plan: Indeterminate pulmonary nodules: Previously identified nodules appear stable and no new nodules of concern were seen on the exam. Low dose CT Scan to be repeated in one year. Plan subject to change pending final radiology report and recommendations. Nature of the lung nodule(s) and the options for further evaluation discussed in detail with patient. Samantha Romero expressed understanding and is in agreement with plan. 2. Encounter for screening for malignant neoplasm of respiratory organs I have determined that the patient is eligible for continued low dose CT screening based on age, absence of signs or symptoms of lung cancer, smoking history and total pack years. The patient was counseled on the importance of adherence to annual LDCT lung cancer screening, impact of comorbidities and ability or willingness to undergo diagnosis and treatment. The patient understands and feels comfortable with it: Yes. 3. Nicotine Dependence The patient was counseled on the importance of maintaining cigarette smoking abstinence - The patient is committed to remaining abstinent from tobacco. 4. Pleural effusion New pleural effusion and increased interstitial markings consistent with pulmonary edema. Pt is having increased edema and weight gain. Decreased activity tolerance with weakness and fatigue. Recommended ER evaluation. She has her developmentally delayed son with her and sister in law is waiting. She does not think she can go to ER today. She will try to arrange this as soon as possible. Will get outpatient BNP and ECG today. - NT PRO BNP; Future - ECG COMPLETE 5. Chest pain, unspecified type Described as midsternal chest pressure it is constant even at rest. She is in a wheelchair, but at home she is mobile with cane for short distance. No increase in symptoms with activity. It has been ongoing for a few months. Was due for cardiology appt, but it got rescheduled. Pt denies known heart failure. She reports in the past she had a little fluid in her lungs. Last cardiac testing was ECHO 06/2024-LVEF 60% - ECG B/O W INTERP (MED OFFICE) - ECG COMPLETE Kay Paredes APRN.ADVISORY SOFTWARE ENGINEER July 09, 2025 3:45 PM -------- History of Present Illness: Samantha Romero is a 59 year old female who is presenting today for annual lung cancer screening LDCT and nodule surveillance/management. Patient has multiple nodules found on previous lung cancer screening LDCT. Last LDCT was performed on 02/02/2024 and was LUNG RADS Category 2. Previous potentially significant incidental findings on imaging: None. Patient is a former smoker with a 30 pack year history. Patient quit smoking 11 years ago at age 48. Patient will continue to be eligible for lung cancer screening. The patient does not have any symptoms or signs of lung cancer. Patient has SOB with their daily activity-normal for her. She is in a wheelchair when outside of the home. No wheezing or dyspnea. Patient denies feeling of chest tightness/congestion in the chest. Patient does not have a new or concerning cough, and denies hemoptysis. Patient does not have a chronic daily cough. Denies regular or recent fevers/chills. Patient does not have any significant unintentional weight loss. Patient denies having any respiratory infections or COVID-19 in the past few months. Increased leg edema a few weeks ago and was seen by PCP. She was not taking her diuretics twice daily. Her weight was up 23 lbs. She took her furosemide 40 mg twice a day and weight was back down on 05/29/2025, and up 2 lbs 07/03/2025. Today her weight is up 13 lbs since 07/03/2025. Her TSH recently was out of range 12/06/2024: 116, most recent c (more content not included)... Normal [facility] CT LUNG SCREEN WO IVCONon CT LUNG SCREEN WO IVCON * * *Final Repor t* * * DATE OF EXAM: Jul 09 2025 2:17PM [facility] 0562 - CT LUNG SCREEN WO IVCON / PROCEDURE REASON: Personal history of tobacco use, presenting hazards to health * * * * Physician Interpretation * * * * EXAMINATION: CHEST CT WITHOUT CONTRAST (LOW-DOSE CT LUNG CANCER SCREENING PROTOCOL) CLINICAL HISTORY: Lung cancer LDCT screening ? absence of signs or symptoms of lung cancer. Personal history of nicotine dependence. Subsequent (annual) Technique: Spiral CT acquisition of the chest from the thoracic inlet to the upper abdomen without contrast. MQ: CTLCS_6 Patient characteristics: * Qsbm-kb-Goody: 1965; Age at exam: 59 years * Gender: Female * Lung Disease: Asymptomatic (no signs or symptoms of lung disease) * Number of Pack Years: 30 * Current smoker (=0) or Number of Years since Quit: 12 * Ordering provider and NPI: ALICJA WALSH [id number] * Interpreting radiologist and NPI: Chaim [id number] Exam acquisition parameters: * Exam Date: 07/09/2025 2:17 PM * Site: [facility] * * CT System Director Of Donor Relations: Siemens * CT System Model: Sensation * Tube Current-Time (mA-sec): 42 * Peak Voltage (kV): 120V * Scan Time (sec): 10.49 * Scan Volume (z-length, cm): -27.80 * Pitch: 0.75 * Slice Thickness (mm): 1.5 * CT Dose-Length Product: 121 mGy*cm * CT Dose Index: 3.27mGy * CT Dose Reduction Method: Automated exposure control(AEC) and iterative recon COMPARISON: Chest CT dated 02/02/2024 RESULT: Are nodules present? Yes, 1-5 nodules Nodule 1: This Perifissural nodule is located along the right major fissure on slice number 88 with an average diameter of 12.7 mm (14.3 mm x 11.0 mm). New since 02/02/2024 and located along the right major fissure, possibly a region of atelectasis given linear configuration or fluid within the fissure. Attention on follow-up is recommended. Nodule 2: This Solid nodule is located in the Left Upper Lobe on slice number 62 with an average diameter of 9.1 mm (12.9 mm x 5.2 mm). New since 02/02/2024 and located along the major fissure, possibly pleural fluid in the fissure or region of atelectasis. Nodule 3: This Solid nodule is located in the Right Lower Lobe on slice number 140 with an average diameter of 2.8 mm (3.5 mm x 2.1 mm). Likely unchanged since 02/02/2024 and probably representing a region of atelectasis, partially obscured on this exam by atelectasis. Nodule 4: This Calcified nodule is located in the Right Lower Lobe on slice number 147 with an average diameter of 10.5 mm (12.2 mm x 8.7 mm). Unchanged since 02/02/2024, consistent with a granuloma. Other lung nodule comments: Other findings: Bronchial wall thickening is present bilaterally. Trace bilateral pleural effusions, right greater than left are new since the prior chest CT from 02/02/2020 4P Dependent densities in the lower lobes located adjacent to pleural effusions are new/increased, probably representing atelectasis. There is new septal thickening bilaterally. Scattered reticular and linear densities bilaterally are favored to represent atelectasis. No consolidation. There is mild bronchiectasis at the lung bases. A thin-walled left lower lobe cyst (5:180) is unchanged. Calcified subcarinal and right hilar lymph nodes are consistent with prior remote granulomatous disease to a small to moderate-sized pericardial effusion has not substantially changed in size in the interval. No distinct coronary artery atherosclerotic calcification, however, this exam is not optimized for coronary assessment. The spleen is enlarged measuring 15.5 cm in AP dimension, unchanged. A few splenic calcifications are likely due to prior remote granulomatous disease. Otherwise, the imaged solid abdominal organs are unremarkable on this noncontrast exam. No destructive lytic or blastic bone lesion. Mild endplate degenerative changes are present within the imaged spine. Emphysema: None Coronary Artery Calcifications: Circumflex None; Left Anterior Descending None; Right Coronary None Localizer images: No additional findings. IMPRESSION: LungRADS category: 4B LungRADS modifier: None LungRADS 0 reason: n/a Recommendations: Chest CT with or without contrast, PET/CT and/or tissue sampling depending on the probability of malignancy and comorbidities. PET/CT may be used when there is a >= 8 mm solid component. Other actionable findings: Interval development of septal thickening bilaterally since the prior chest CT dated 02/02/2024, suggestive of pulmonary edema. Trace bilateral pleural effusions, right greater than left, are new since the prior chest CT. Unchanged small to moderate-sized pericardial effusion. Unchanged splenomegaly. === Reference: [employer]. Lung CT Screening Reporting and Data System (Lung-RADS (more content not included)... Normal [facility] Carbon dioxide, total [Moles /volume] in Central venous bloodOrdered By: Niranjan Leblanc on 07-09-2025 CO2 [Moles/Vol] 26.4 mmol/L 21.0-32.0 [facility] Chest PA and Lateralon 07-09 Chest PA and Lateral [facility] Imaging Services [address] [place], [place] [address] Chest PA and Lateral MR#: [id number] Acct: [id number] Name: SAMANTHA ROMERO Rep #: [id number] : 1965 F 59 From: Graham Schofield MD PCP: Dr. Sarina Adams MD Status: [facility] ER Study: Chest PA and Lateral Date of Exam: 07/09/25 Exam# [id number] Ordering Dr: Niranjan Leblanc DO PROCEDURE: CHEST PA AND LATERAL 07/09/2025 REASON FOR EXAM: SOB TECHNIQUE: Procedure Code: RADCXR Modality: DX Procedure: CHEST PA AND LATERAL COMPARISON: 10/27/2024 FINDINGS: Cardiomegaly. Central vascular congestion, and bilateral interstitial reticular airspace opacities likely reflect interstitial edema. No pneumothorax or sizable pleural effusion. No significant osseous abnormality. RAD/Chest PA and Lateral IMPRESSION: Cardiomegaly with vascular congestion and interstitial edema. No sizable pleural effusion. Reading Location: [facility] CC: Dr. Sarina Adams MD; Dr. Niranjan Leblanc DO Solidworks Drafter: Signed Normal [facility] Chloride assayOrdered By: Tyshawn Leblanc on 07-09-2025 Chloride [Moles/Vol] 107 mmol/L 98-108 [facility] [id number] 07-09-2025 ECG01 Ventricular Rate : 7 0 BPM Atrial Rate : 70 BPM P-R Interval : 204 ms QRS Duration : 102 ms Q-T Interval : 436 ms QTC Calculation(Bazett) : 470 ms Calculated P [place] : 25 degrees Calculated R [place] : 6 degrees Calculated T [place] : 51 degrees NORMAL SINUS RHYTHM NORMAL ECG Confirmed by MD WALTON QARAB ([id number]) on 07/11/2025 11:18:09 AM NAME : SAMANTHA ROMERO PID : [id number] : 1965 Gender : Female Race : ORD : Procedure Date : Jul 09 2025 16:00:06 Edit Date : Jul 11 2025 11:18:21 Diagnosis: NORMAL SINUS RHYTHM NORMAL ECG Confirmed by MD WALTON QARAB ([id number]) on 07/11/2025 11:18:09 AM Test Reason : Location : 136 : [place] Overread By : MD WALTON QARAB Edited By : MD WALTON QARAB Referred By : KAY JAVIER Acquired by : Karena MCKINNON [facility] Echo Completeon 07-09-2025 Echo Complete [facility] [address] [place] [address] Echo Complete 07/10/25 0841 MR#: [id number] Acct: [id number] Name: SAMANTHA ROMERO Rep #: [id number] : 1965 59 From: Ed Barraza MD Attending Dr: Dr. Asya Hernandez MD Status: ADM IN Ordering Dr: Tavo Nielson DO Date: 07/09/25 Location: [facility] Sex: F C Admitted: 07/09/25 Reason For Study Reason For Study: CHF Procedure This was a 2D Doppler, Color Flow transthoracic echocardiogram. Exam performed portable in patient room. Left Ventricle Normal LV size. Mild concentric left ventricular hypertrophy. Left ventricular systolic function is normal. The left ventricular ejection fraction is 55 %. No regional wall motion abnormalities noted. Right Ventricle Normal RV size. Normal systolic function. Atria Normal left atrium. Normal right atrium. Mitral Valve There is mild mitral annular calcification. Mild (1+) eccentric mitral valve insufficiency. Tricuspid Valve Normal tricuspid valve. Mild (1+) tricuspid valve insufficiency. Pulmonary artery systolic pressure is 32 mmHg. Aortic Valve Trisinus/trileaflet aortic valve. Mild (1+) aortic valve insufficiency. Pulmonic Valve Normal pulmonic valve. Great Vessels Normal aortic root. The pulmonary artery is normal size. Inferior vena cava collapse with respiration. Pericardium/Pleural Small (<1.0 cm) pericardial effusion. There are no echocardiographic indications of cardiac tamponade. MMode/2D Measurements Calculations LVIDd: 5.1 cm IVSd: 1.4 cm Ao root diam: 3.4 cm LVIDs: 3.2 cm LVPWd: 1.4 cm RVDd: 3.3 cm FS: 37.9 % _ LAV(MOD-bp): 55.0 ml LVAd ap4: 33.1 cm2 SV(MOD-sp4): 57.0 ml LAV(MOD-bp) Indexed: 25.4 ml/m2 LVLd ap4: 8.8 cm SI(MOD-sp4): 26.3 ml/m2 LAV(MOD-sp2): 51.6 ml EDV(MOD-sp4): 105.1 ml LAV(MOD-sp4): 57.9 ml EDV(sp4-el): 105.6 ml LVAs ap4: 20.4 cm2 LVLs ap4: 7.9 cm ESV(MOD-sp4): 48.1 ml ESV(sp4-el): 44.9 ml EF(MOD-sp4): 54.2 % EF(sp4-el): 57.5 % _ SV(sp4-el): 60.7 ml LA A4 area: 21.0 cm2 LA dimension(2D): 4.7 cm _ RA A4 area: 12.2 cm2 Time Measurements MV dec time: 0.17 sec Doppler Measurements Calculations MV E max riacrdo: 108.5 cm/sec Lat Peak E' Ricardo: 8.5 cm/sec Med Peak E' Ricardo: 5.9 cm/sec MV A max ricardo: 95.0 cm/sec E/E' lat: 12.7 E/E' med: 18.3 MV E/A: 1.1 _ MV V2 max: 106.6 cm/sec MV P1/2t max ricardo: 107.8 cm/sec Ao V2 max: 139.1 cm/sec MV max P.5 mmHg MV P1/2t: 60.2 msec Ao max P.7 mmHg MV V2 mean: 65.8 cm/sec Ao V2 mean: 93.7 cm/sec MV mean P.0 mmHg MV dec slope: 524.8 cm/sec2 Ao mean P.1 mmHg MV V2 VTI: 30.6 cm MVA(P1/2t): 3.7 cm2 Ao V2 VTI: 32.7 cm AV (velocity ratio): 0.88 _ AI max ricardo: 357.8 cm/sec LV V1 max: 112.9 cm/sec PA V2 max: 92.4 cm/sec AI max P.2 mmHg LV V1 max P.1 mmHg LV V1 mean P.1 mmHg AI dec slope: 222.8 cm/sec2 LV V1 mean: 82.2 cm/sec AI P1/2t: 470.4 msec LV V1 VTI: 28.6 cm _ TR max ricardo: 264.8 cm/sec TR max P.1 mmHg ECHO/Echo Complete Interpretation Summary Normal LV size. Left ventricular systolic function is normal. The left ventricular ejection fraction is 55 %. Small (<1.0 cm) pericardial effusion. There are no echocardiographic indications of cardiac tamponade. Mild (1+) aortic valve insufficiency. Ordering Physician: Tavo Nielson Performed By: Shane Hart RCS 07/10/25 1103 Date Ed Barraza MD CC: Dr. Tavo Nielson DO; Dr. Sarina Adams MD; Dr. Asya Hernandez MD Date Dictated: 07/10/25 0841 Date Transcribed: 07/10/251102 Solidworks Drafter: Signed Normal [facility] Emergency Department Summary on 07-09-2025 Emergency Department Summary [facility] Medical Records Department [address] [place] [id number] Emergency Department Summary 07/09/25 MR#: [id number] Acct: [id number] Name: SAMANTHA ROMERO Rep #: [id number] : 1965 59 From: Niranjan Leblanc DO PCP: Dr. Sarina Adams MD Status:[facility] ER Location: ED HPI History of Present Illness Chief Complaint: Shortness of Breath Narrative Narrative: Patient is a 59-year-old female with past medical history of hypothyroidism, type 2 diabetes, chronic respiratory failure with hypoxia chronically on 2 L nasal cannula, pericardial effusion, migraines, hypertension, hypercholesteremia who presented to the emergency department from the pulmonary office with a chief complaint of worsening shortness of breath on exertion as well as increased weight gain. According to the patient she has increased her weight by approximately 13 pounds since last week. States that there is a chance that she has missed few doses of her Lasix. States that she had a CT scan earlier today which showed fluid in her lungs and the pulmonology office sent her immediately here to the emergency department to be further evaluated. [facility] Medical History COVID History of hypothyroidism Type 2 diabetes mellitus treated with insulin Chronic respiratory failure with hypoxia Pericardial effusion Thrombocytopenia Anemia Elevated lipase Urinary retention Obesity Former tobacco use UTI (urinary tract infection) Kidney stones Migraines Hypothyroid Hypercholesteremia Hypertension Type 2 diabetes mellitus Home Medications ???Medication ???Instructions ???Recorded ???Last Taken ???Type estradiol 0.01% (0.1 mg/gram) 3 g vaginal .COMPLEX health Unknown History vaginal cream maintenance fenofibrate 160 mg tablet 160 mg PO DAILY cholesterol 07/09/25 History vitamin E 268 mg (400 unit) capsule 400 unit PO DAILY supplement 07/09/25 History dicyclomine 10 mg capsule 10 mg PO ACHS abdominal pain 07/06 Unknown History insulin degludec 100 unit/mL (3 86 unit subcut QHS diabetes 07/08/25 History mL) subcutaneous pen (Tresiba FlexTouch U-100 insulin) meloxicam 15 mg tablet 15 mg PO DAILY PRN Pain 07/06/21 1 History rosuvastatin 10 mg tablet 10 mg PO DAILY cholesterol 1 07/08/25 History cholecalciferol (vitamin D3) 125 125 mcg PO DAILY SUPPLEMENT 07/09/25 History mcg (5,000 unit) capsule omeprazole 40 mg capsule,delayed 40 mg PO DAILY STOMACH 05/03/24 History release dulaglutide 4.5 mg/0.5 mL 4.5 mg subcut QWEEK BLOOD SUGAR 07/08/25 History subcutaneous pen injector (Trulicity) empagliflozin 25 mg tablet 25 mg PO DAILY 07/09/25 Unknown Hi story (Jardiance) Held on 07/09/25. Instructions: MD Ordered furosemide 40 mg tablet 40 mg PO BID EDEMA 07/09/25 History gabapentin 800 mg tablet 800 mg PO TID NEUROPATHY 07/09/25 07/09/25 History hydrocodone-acetaminophe n 5-325mg 1 tab PO Q6H PRN pain 07/09/25 History 5mg-325mg insulin lispro 100 unit/mL 22 unit subcut TIDCM DIABETES 03/28 Unknown History subcutaneous pen (Humalog KwikPen (U-100) Insulin) insulin lispro 100 unit/mL See Protocol subcut DAILY DIABETES 07/09/25 Unknown History subcutaneous pen (Humalog KwikPen (U-100) Insulin) levothyroxine 300 mcg tablet 300 mcg PO DAILY THYROID 07/09/25 07/08/25 History peg 400-propylene glycol 0.4 %-0.3 1 drp ophthalmic (eye) 4X/DAY DR Hale 07/09/25 07/07/25 History % eye drops (Systane Ultra) EYE potassium chloride 10 mEq 10 meq PO DAILY POTASSIUM 07/09/25 07/09/25 History tablet,extended release Allergy/AdvReac Type Severity Reaction Status Date / Time metformin AdvReac Diarrhea Verified 07/09/25 16:21 oxycodone (From Percocet) AdvReac upset Verified 07/09/25 16:21 stomach/off balance Family History Mother Diabetes Father Diabetes Surgical History Previous section History of appendectomy Social History household members: none Smoking Status: Former smoker how long ago did patient quit smoking: Quit cigarette tobacco in 2015, 1 ppd since teenager until quit. alcohol intake: never substance use type: does not use ROS ROS ED ROS Narrative Constitutional: Denies any fevers, chills, headaches Cardiovascular: Denies chest pain Respiratory: Complains of dyspnea on exertion as noted above as well as coughing Abdomen: Denies nausea vomit diarrhea : Denies urinary symptoms Neurological: Denies numbness, weakness, tingling Musculos (more content not included)... Normal [facility] Eosinophil percentageOrdered By: Niranjan Leblanc on 07-09-2025 Eosinophils/100 WBC (Bld) 4.4 % 0-5 [facility] Erythrocyte distribution wid th ratioOrdered By: Niranjan Leblanc on 07-09-2025 Erythrocyte distribution width (RBC) [Ratio] 15.1 % High 11.6-14.6 [facility] Erythrocyte distribution wid th standard deviationOrdered By: Niranjan Leblanc on 07-09-2025 Erythrocyte distribution width (RBC) [Ratio] 50.4 fl High 35.1-43.9 [facility] Glomerular filtration rate ( GFR) estimation/1.73 sq m using serum, plasma, or whole bOrdered By: Niranjan Leblanc on 07-09-2025 GFR/1.73 sq M.predicted among non-blacks MDRD (S/P/Bld) [Vol rate/Area] 55 mL/min/{1.73_m2} Low >60 [facility] Comment on above: mL/min/1.73m2 CKD-EP I Creatinine Equation (2020) H AND P Exam - [place] 07-09-2025 H&P Exam - Hospitalist [facility] Medical Records Department [address] [place] [address] H P Exam - Hospitalist 07/09/25 1834 MR#: [id number] Acct: [id number] Name: SAMANTHA ROMERO Rep #: [id number] : 1965 59 From: Tavo Nielson DO PCP: Dr. Sarina Adams MD Status:ADM IN Location: [place] [id number] HPI - General General Date of Service: 07/09/25 Chief Complaint: Shortness of breath HPI Narrative SAMANTHA ROMERO, is a 59 F who presents with shortness of breath. This is a 59-year-old female who is on oxygen since having COVID 4-1/2 years ago. Went to see her corporate vp advertising & online and just has been progressively more short of breath. She has put on roughly 15 pounds in the past few days and has had increased lower extremity edema extending up into her abdomen. She was sent to the emergency room where she had chest x-ray showed some pulmonary vascular congestion. She received 40 mg of IV furosemide. They attempted to ambulate her but she became hypoxic with her oxygen that she does require at home. [ ] [facility] Medical History COVID History of hypothyroidism Type 2 diabetes mellitus treated with insulin Chronic respiratory failure with hypoxia Pericardial effusion Thrombocytopenia Anemia Elevated lipase Urinary retention Obesity Former tobacco use UTI (urinary tract infection) Kidney stones Migraines Hypothyroid Hypercholesteremia Hypertension Type 2 diabetes mellitus Home Medications ???Medication ???Instructions ???Recorded ???Last Taken ???Type estradiol 0.01% (0.1 mg/gram) 3 g vaginal .COMPLEX health Unknown History vaginal cream maintenance fenofibrate 160 mg tablet 160 mg PO DAILY cholesterol 07/09/25 History vitamin E 268 mg (400 unit) capsule 400 unit PO DAILY supplement 07/09/25 History dicyclomine 10 mg capsule 10 mg PO ACHS abdominal pain 07/06 Unknown History insulin degludec 100 unit/mL (3 86 unit subcut QHS diabetes 07/08/25 History mL) subcutaneous pen (Tresiba FlexTouch U-100 insulin) meloxicam 15 mg tablet 15 mg PO DAILY PRN Pain 07/06/21 1 History rosuvastatin 10 mg tablet 10 mg PO DAILY cholesterol 1 07/08/25 History cholecalciferol (vitamin D3) 125 125 mcg PO DAILY SUPPLEMENT 07/09/25 History mcg (5,000 unit) capsule omeprazole 40 mg capsule,delayed 40 mg PO DAILY STOMACH 05/03/24 History release dulaglutide 4.5 mg/0.5 mL 4.5 mg subcut QWEEK BLOOD SUGAR 07/08/25 History subcutaneous pen injector (Trulicity) empagliflozin 25 mg tablet 25 mg PO DAILY 07/09/25 Unknown Hi story (Jardiance) Held on 07/09/25. Instructions: Ordered furosemide 40 mg tablet 40 mg PO BID EDEMA 07/09/25 History gabapentin 800 mg tablet 800 mg PO TID NEUROPATHY 07/09/25 07/09/25 History hydrocodone-acetaminophe n 5-325mg 1 tab PO Q6H PRN pain 07/09/25 History 5mg-325mg insulin lispro 100 unit/mL 22 unit subcut TIDCM DIABETES 03/28 Unknown History subcutaneous pen (Humalog KwikPen (U-100) Insulin) insulin lispro 100 unit/mL See Protocol subcut DAILY DIABETES 07/09/25 Unknown History subcutaneous pen (Humalog KwikPen (U-100) Insulin) levothyroxine 300 mcg tablet 300 mcg PO DAILY THYROID 07/09/25 07/08/25 History peg 400-propylene glycol 0.4 %-0.3 1 drp ophthalmic (eye) 4X/DAY DR Y 07/09/25 07/07/25 History % eye drops (Systane Ultra) EYE potassium chloride 10 mEq 10 meq PO DAILY POTASSIUM 07/09/25 07/09/25 History tablet,extended release Allergy/AdvReac Type Severity Reaction Status Date / Time metformin AdvReac Diarrhea Verified 07/09/25 16:21 oxycodone (From Percocet) AdvReac upset Verified 07/09/25 16:21 stomach/off balance Family History Mother Diabetes Father Diabetes Surgical History Previous section History of appendectomy Social History household members: none Smoking Status: Former smoker how long ago did patient quit smoking: Quit cigarette tobacco in 2014, 1 ppd since teenager until quit. alcohol intake: never substance use type: does not use ROS ROS Narrative Midsternal chest pain with deep respirations. Coughing up some reynolds phlegm. All review of systems were negative except as mentioned above in the history of present illness and the other review of systems. Vital Signs Vital Signs Vital Signs: 07/09/25 16:21 07/09/25 16:41 07/09/25 16:42 Temperature 35.6 C L Temperature Source Temporal Pulse Rate 71 Respiratory Rate 18 Respiratory Effort Short of Breath R (more content not included)... Normal [facility] Hematocrit Auto (Bld) [Volum e fraction]Ordered By: Niranjan Leblanc on 07-09-2025 Hematocrit (Bld) [Volume fraction] 35.9 % Low 37-47 [facility] Hemoglobin measurementOrdere d By: Niranjan Leblanc on 07-09-2025 Hemoglobin (Bld) [Mass/Vol] 11.0 g/dL Low 12.0-15.0 [facility] Immature granulocytes/100 WB C Auto (Bld)Ordered By: Niranjan Leblanc on 07-09-2025 Immature granulocytes/100 WBC (Bld) 0.700 % 0.0-0.9 [facility] Comment on above: IG% - Immature Granu locytes (promyelocytes, myelocytes and metamyelocytes) > 1% indicates that a LEFT SHIFT is Present. MCV (mean corpuscular volume ) determinationOrdered By: Niranjan Leblanc on 07-09-2025 MCV (RBC) [Entitic vol] 90.9 fL 81-99 [facility] Mean corpuscular hemoglobin (MCH) determinationOrdered By: Niranjan Leblanc on 07-09-2025 MCH (RBC) [Entitic mass] 27.8 pg 27.0-32.0 [facility] Mean corpuscular hemoglobin concentration (MCHC) determinationOrdered By: Niranjan Leblanc on 07-09-2025 MCHC (RBC) [Mass/Vol] 30.6 g/dL Low 32-36 [facility] Mean platelet volume determi nationOrdered By: Niranjan Leblanc on 07-09-2025 Platelet mean volume (Bld) [Entitic vol] 11.2 fL 6.2-12.0 [facility] Monocyte percentageOrdered B y: Niranjan Leblanc on 07-09-2025 Monocytes/100 WBC (Bld) 7.2 % 0-10 [facility] NT-proBNP SerPl-mCncon 07-09 Natriuretic peptide.B prohormone N-Terminal [Mass/Vol] 220 pg/mL High <[address] [facility] Comment on above: Order Comment: Speci men Type: BLOOD SPECIMENOrdering Facility: [facility] Address: [address] [place], [place] [id number] Performed By: #### 3 3762-6 ####[facility] LABCLIA [id number] [place] [id number] [place] Natriuretic peptide.B prohor nicole N-Terminal [Mass/volume] in Serum or PlasmaOrdered By: Niranjan Leblanc on 07-09-2025 Natriuretic peptide.B prohormone N-Terminal [Mass/Vol] 237 pg/mL <900 [facility] Comment on above: Heart Failure Unlike ly: < 300 pg/mLHeart Failure Likely< 50 Years: > 450 pg/mL50-75 Years: > 900 pg/mL>75 Years: > 1800 pg/mL Neutrophil percentageOrdered By: Niranjan Leblanc on 07-09-2025 Neutrophils/100 WBC (Bld) 71.8 % High 47-70 [facility] Nucleated red blood cell per centageOrdered By: Niranjan Leblanc on 07-09-2025 Nucleated RBC/100 WBC (Bld) [Ratio] 0 % 0-5 [facility] Platelet countOrdered By: Tyshawn Leblanc on 07-09-2025 Platelets (Bld) [#/Vol] 131 10*3/uL Low 150-450 [facility] Potassium measurement (mass/ volume)Ordered By: Niranjan Leblanc on 07-09-2025 Potassium (Unsp spec) [Mass/Vol] 4.6 mmol/L 3.3-5.1 [facility] Pro- Brain NATRIURETIC PEPTI Harvey 07-09-2025 Natriuretic peptide B (Bld) [Mass/Vol] 237 pg/mL Normal <=900 [facility] Comment on above: Result Comment: Hear t Failure Unlikely: < 300 pg/mL Heart Failure Likely < 50 Years: > 450 pg/mL 50-75 Years: > 900 pg/mL >75 Years: > 1800 pg/mL Performed By: #### L 503.7505, L500.2500 #### [facility] [address] [place], [place], [id number] RBC Auto (Bld) [#/Vol]Ordere d By: Niranjan Leblanc on 07-09-2025 RBC (Bld) [#/Vol] 3.95 10*6/uL Low 4.2-5.4 [facility] Serum creatinine measurement (mass/volume)Ordered By: Niranjan Leblanc on 07-09-2025 Creatinine [Mass/Vol] 1.15 mg/dL 0.70-1.20 [facility] Serum glucose measurement (m ass/volume)Ordered By: Niranjan Leblanc on 07-09-2025 Glucose [Mass/Vol] 225 mg/dL High 70-99 [facility] Serum or plasma calcium brando urement (mass/volume)Ordered By: Niranjan Leblanc on 07-09-2025 Calcium [Mass/Vol] 9.0 mg/dL 7.6-11.0 [facility] Serum or plasma urea nitroge n measurement (mass/volume)Ordered By: Niranjan Leblanc on 07-09-2025 Urea nitrogen [Mass/Vol] 31 mg/dL High 4-19 [facility] Sodium levelOrdered By: Pb Leblanc on 07-09-2025 Sodium [Moles/Vol] 143 mmol/L 133-145 [facility] White blood cell (WBC) count Ordered By: Niranjan Leblanc on 07-09-2025 WBC (Bld) [#/Vol] 5.4 10*3/uL 4.4-11.0 [facility] CNOVon 07-03-2025 CNOV Office Visit (INTMWS ) -------- ROMEROEMERITAKate Manning ([id number]) 1965 F Date Time Provider Department 07/03/25 3:20 PM DENISE ALVARADO INTMWS During your visit today, we recorded the following information about you: Pulse Respiration Blood pressure Weight 64/minute 20/minute 125/76 114.2 kg Denise Alvarado APRN.[employer] ASSURANCE PRACTICE MANAGER 07/09/2025 4:34 PM Addendum Subjective Patient ID: Samantha is a 59 year old female who presents for No chief complaint on file.. HPI The patient is a 59-year-old female with type 2 diabetes mellitus and hypothyroidism, presenting for evaluation of persistent bilateral lower extremity edema. Leg Edema: - Persistent leg edema, causing heaviness and difficulty ambulating. - Taking diuretics inconsist; often forgets evening dose. - Avoids taking diuretics on appointment days. - Reports decreased edema but still present, especially at night. Hoarseness: - New onset hoarseness. - Denies fever, heartburn, or reflux. - No known exposure to sick contacts or environmental irritants. - Denies tobacco use and exposure to secondhand smoke. No GERD or heartburn symptoms. Hypothyroidism: - Taking thyroid medication consistently. - Reports feeling a little bit more energetic. DM: - Blood glucose reading of 220 mg/dL this morning after consuming cheesy popcorn. - Occasionally skips meals; recent blood glucose reading of 96 mg/dL. - Reports episodes of hypoglycemia with blood glucose levels in the 60s. - Taking Trulicity weekly; awaiting refill due to backorder. - Administering Tresiba 80 units daily; refill requested. - Administering short acting insulin 20 units TID with sliding scale coverage. Rosas PharmD for DM managment. Chronic Back Pain: - Chronic back pain managed with Reynolds and gabapentin. - Pain exacerbated by prolonged standing, such as doing dishes. - Requests refill for Reynolds, due on the or . - Reports some relief with current pain management regimen. Hypothyroidism. TSH Date Value 03/28/2025 60.600 mIU/L 12/06/2024 116.000 mIU/L 04/10/2021 2.340 uU/mL 04/10/2020 1.210 uU/mL ) DIABETES MELLITUS: Patient's last HgA1C was Hemoglobin A1C (%) Date Value 03/28/2025 10.0 10/16/2024 9.2 04/10/2021 8.3 10/25/2020 10.3 Hemoglobin A1C (POCT) (%) Date Value 10/21/2022 11.0 ) Without report of headache, chest pain, palpitations, dyspnea, and PND. Last 14 Encounter BP Readings: Date: BP: 07/03/2025 125/76 05/29/2025 122/62 05/22/2025 118/79 03/28/2025 112/54 12/08/2024 115/67 12/06/2024 122/64 11/28/2024 125/74 10/16/2024 146/70 06/14/2024 100/60 06/08/2024 102/66 05/16/2024 140/62 02/21/2024 99/52 02/11/2024 120/60 01/03/2024 106/60 Creatinine Date Value Ref Range Status 05/29/2025 1.34 (H) 0.58 - 0.96 mg/dL Final 03/28/2025 1.42 (H) 0.58 - 0.96 mg/dL Final 12/06/2024 1.39 (H) 0.58 - 0.96 mg/dL Final 10/16/2024 1.07 (H) 0.58 - 0.96 mg/dL Final ROS Constitutional: (-) fever Ears/Nose/Mouth/Throat: (+) hoarseness Respiratory: (+) productive cough with reynolds sputum Gastrointestinal: (+) abdominal discomfort Musculoskeletal: (+) bilateral leg swelling, (+) gait difficulty, (+) back pain Objective LMP 04/27/2016 Physical Exam Vitals and nursing note reviewed. Constitutional: Appearance: Normal appearance. HENT: Head: Normocephalic. Eyes: Conjunctiva/sclera: Conjunctivae normal. Cardiovascular: Rate and Rhythm: Normal rate and regular rhythm. Heart sounds: Normal heart sounds. Pulmonary: Effort: Pulmonary effort is normal. Breath sounds: Normal breath sounds. Comments: O2 by NC Abdominal: General: Bowel sounds are normal. Palpations: Abdomen is soft. Musculoskeletal: Lumbar back: Tenderness present. Decreased range of motion. Right lower leg: Edema (2+ at ankle) present. Left lower leg: Edema (2+ at ankle) present. Skin: General: Skin is warm and dry. Neurological: Mental Status: She is alert. Mental status is at baseline. Latest Ref Rng 10/16/2024 12/06/2024 12/08/2024 03/28/2025 05/29/2025 07/03/2025 WBC 3.70 - 11.00 k/uL 5.33 4.05 7.06 RBC 3.90 - 5.20 m/uL 4.00 3.84 (L) 4.27 Hemoglobin 11.5 - 15.5 g/dL 11.4 (L) 10.9 (L) 12.0 Hematocrit 36.0 - 46.0 % 36.7 35.5 (L) 38.8 MCV 80.0 - 100.0 fL 91.8 92.4 90.9 MCH 26.0 - 34.0 pg 28.5 28.4 28.1 MCHC 30.5 - 36.0 g/dL 31.1 30.7 30.9 RDW-CV 11.5 - 15.0 % 14.3 13.6 14.6 Platelet Count 150 - 400 k/uL 133 (L) 133 (L) 171 MPV 9.0 - 12.7 fL 11.9 11.7 11.8 Neut% % 63.9 63.7 72.2 Abs Neut (ANC) 1.45 - 7.50 k/uL 3.41 2.58 5.09 Lymph% % 22.3 21.0 17.8 Abs Lymph 1.00 - 4.00 k/uL 1.19 0.85 (L) 1.26 [place]% % 8.1 11.1 5.9 Abs [place] <0.87 k/uL 0.43 0.45 0.42 Eosin% % 4.5 3.2 3.3 Abs Eosin <0.46 k/uL 0.24 0.13 0.23 Baso% % 0.4 0.5 0.4 Abs Baso <0.11 k/uL <0.03 <0.03 0.03 Immature Gran % % 0.8 0.5 0.4 IMMATURE GRANS (ABS) <0.10 k/uL 0.04 <0.03 0.03 NRBC /1 (more content not included)... Normal [facility] Comprehensive metabolic 2000 panelon 07-03-2025 Albumin [Mass/Vol] 3.5 g/dL Low 3.9-4.9 [facility] Comment on above: Order Comment: Speci men Type: BLOOD SPECIMENOrdering Facility: [facility] Address: [address] [place] [address] Performed By: #### T [facility], [address]-3, 3024-7 ####[facility] LABCLIA [id number] [place] [address] [place] ALP [Catalytic activity/Vol] 73 U/L Normal 34-[address] [facility] Comment on above: Order Comment: Speci men Type: BLOOD SPECIMENOrdering Facility: [facility] Address: [address] [place] [address] Performed By: #### T FIONA, , 3024-04 ####[facility] LABCLIA [id number] [address] [place] [address] [place] ALT [Catalytic activity/Vol] 24 U/L Normal 7-[address] [facility] Comment on above: Order Comment: Speci men Type: BLOOD SPECIMENOrdering Facility: [facility] Address: [address] [place] [address] Performed By: #### T FIONA, , 3024-04 ####[facility] LABCLIA [id number] [address] [address] [place] Anion gap [Moles/Vol] 11 mmol/L Normal 8-15 [facility] Comment on above: Order Comment: Speci men Type: BLOOD SPECIMENOrdering Facility: [facility] Address: [address] [place] [address] Performed By: #### T FIONA, , 3024-04 ####[facility] LABCLIA [id number] [address] [address] [place] AST [Catalytic activity/Vol] 32 U/L Normal 13-[address] [facility] Comment on above: Order Comment: Speci men Type: BLOOD SPECIMENOrdering Facility: [facility] Address: [address] [place] [address] Performed By: #### T FIONA, , 3024-04 ####[facility] LABCLIA [id number] [address] [address] [place] Bilirubin [Mass/Vol] 0.2 mg/dL Normal 0.2-1.3 [facility] Comment on above: Order Comment: Speci men Type: BLOOD SPECIMENOrdering Facility: [facility] Address: [address] [place] [address] Performed By: #### T FOINA, , 3024-04 ####[facility] LABCLIA [id number] [address] [address] [place] Calcium [Mass/Vol] 9.1 mg/dL Normal 8.5-10.2 [facility] Comment on above: Order Comment: Speci men Type: BLOOD SPECIMENOrdering Facility: [facility] Address: [address] [place], [place] [id number] Performed By: #### T FIONA, , 3024-04 ####[facility] LABCLIA [id number] [address] [address] [place] Chloride [Moles/Vol] 105 mmol/L Normal 98-107 [facility] Comment on above: Order Comment: Speci men Type: BLOOD SPECIMENOrdering Facility: [facility] Address: [address] [place] [address] Performed By: #### T FIONA, , 3024-04 ####[facility] LABIA [id number] [address] [address] [place] CO2 [Moles/Vol] 25 mmol/L Normal 22-[address] [facility] Comment on above: Order Comment: Speci men Type: BLOOD SPECIMENOrdering Facility: [facility] Address: [address] [place] [address] Performed By: #### T FIONA, , 3024-04 ####[facility] LABIA [id number] [address] [address] [place] Creatinine [Mass/Vol] 1.29 mg/dL High 0.58-0.96 [facility] Comment on above: Order Comment: Speci men Type: BLOOD SPECIMENOrdering Facility: [facility] Address: [address] [place] [address] Performed By: #### T FIONA, , 3024-04 ####[facility] LABIA [id number] [place] [address] [place] eGFRcr SerPlBld CKD-EPI 2020 48 mL/min/1.73m??? Low >=[address] [facility] Comment on above: Order Comment: Katrina pereira Type: BLOOD SPECIMENOrdering Facility: [facility] Address: [address] [place] [address] Result Comment: Angelica mated Glomerular Filtration Rate (eGFR) is calculated using the 2020 CKD-EPI creatinine equation. This equation utilizes serum creatinine, sex, and age as parameters. The creatinine assay has traceable calibration to isotope dilution-mass spectrometry. Refer to KDIGO guidelines for clinical interpretation. In patients with unstable renal function, e.g. those with acute kidney injury, the eGFR may not accurately reflect actual GFR. Performed By: #### T [facility], [address]-8, 3023-7 ####[facility]PITAL[facility] [id number] [place] [address] [place] Glucose [Mass/Vol] 222 mg/dL High 74-99 [facility] Comment on above: Order Comment: Katrina pereira Type: BLOOD SPECIMENOrdering Facility: [facility] Address: [address] [place] [address] Result Comment: The [place] [employer] (ADA) provides guidance for cutoff values for fasting glucose and random glucose. The ADA defines fasting as no caloric intake for at least 8 hours. Fasting plasma glucose results between 100 to 125 mg/dL indicate increased risk for diabetes (prediabetes). Fasting plasma glucose results greater than or equal to 126 mg/dL meet the criteria for diagnosis of diabetes. In the absence of unequivocal hyperglycemia, results should be confirmed by repeat testing. In a patient with classic symptoms of hyperglycemia or hyperglycemic crisis, random plasma glucose results greater than or equal to 200 mg/dL meet the criteria for diagnosis of diabetes. Reference: Standards of Medical Care in Diabetes 2016, [place] Diabetes Association. Diabetes Care. 2016.39(Suppl 1). Performed By: #### [facility], 34609-3, 7 ####[facility] LABIA [id number] [address] [place] [address] [place] Potassium [Moles/Vol] 4.2 mmol/L Normal 3.7-5.1 [facility] Comment on above: Order Comment: Speci men Type: BLOOD SPECIMENOrdering Facility: [facility] Address: [address] [place], [place] [address] Performed By: #### T FIONA, 19518-2, 3024-04 ####[facility] LABCLIA [id number] [address] [place] [address] [place] Protein [Mass/Vol] 6.4 g/dL Normal 6.3-8.0 [facility] Comment on above: Order Comment: Speci men Type: BLOOD SPECIMENOrdering Facility: [facility] Address: [address] [place], [place] [address] Performed By: #### T FIONA, , 3024-04 ####[facility] LABCLIA [id number] [address] [address] [place] Sodium [Moles/Vol] 141 mmol/L Normal 136-144 [facility] Comment on above: Order Comment: Speci men Type: BLOOD SPECIMENOrdering Facility: [facility] Address: [address] [place] [address] Performed By: #### T FIONA, 75965-0, 3024-04 ####[facility] LABCLIA [id number] [address] [place] [address] [place] Urea nitrogen [Mass/Vol] 38 mg/dL High 7-[address] [facility] Comment on above: Order Comment: Speci men Type: BLOOD SPECIMENOrdering Facility: [facility] Address: [address] [place], [place] [address] Performed By: #### T FIONA, 46690-8, 3024-04 ####[facility] LABCLIA [id number] [address] [place] [address] [place] HbA1c (Bld)on 07-03-2025 Average glucose Estimated from glycated hemoglobin (Bld) [Mass/Vol] 197 mg/dL Normal [facility] Comment on above: Order Comment: Katrina pereira Type: BLOOD SPECIMENOrdering Facility: [facility] Address: [address] [place] [address] Result Comment: eAG: (Estimated average glucose) is a calculated value from HgbA1c and is service center representative of the average blood glucose level in the last 2-3 month period. Performed By: #### 5 5454-3 ####[facility] LABCLIA [id number] [place] [address] [place] HbA1c (Bld) [Mass fraction] 8.5 % High 4.3-5.[address] [facility] Comment on above: Order Comment: Katrina pereira Type: BLOOD SPECIMENOrdering Facility: [facility] Address: [address] [place] [address] Result Comment: [place] Diabetes Association guidelines indicate that patients with HgbA1c in the range 5.7-6.4% are at increased risk for development of diabetes, and intervention by lifestyle modification may be beneficial. HgbA1c greater or equal to 6.5% is considered diagnostic of diabetes. Performed By: #### 5 5454-3 ####[facility] LABIA [id number] [place] [address] [place] T4 Free SerPl-mCncon 025 Free T4 [Mass/Vol] 1.5 ng/dL Normal 0.9-1.7 [facility] Comment on above: Order Comment: Katrina pereira Type: BLOOD SPECIMENOrdering Facility: [facility] Address: [address] [place] [address] Performed By: #### [facility], 34166-4, 3024-7 ####[facility] LABCLIA [id number] [place] [address] [place] TSH W/REFLEX FT4on 5 TSH Qn 17.200 m[IU]/L High 0.270-4.[address] [facility] Comment on above: Order Comment: Speci men Type: BLOOD SPECIMENOrdering Facility: [facility] Address: [address] [place], [place] [address] Performed By: #### [facility], 60885-8, 3024-7 ####[facility] LABCLIA [id number] [address] [address] [place] Basic metabolic 2000 panelon 05-29-2025 Anion gap [Moles/Vol] 12 mmol/L Normal 8-15 [facility] Comment on above: Order Comment: Speci men Type: BLOOD SPECIMENOrdering Facility: [facility] Address: [address] [place] [address] Performed By: #### 2 4321-2 ####[facility] LABCLIA [id number] [address] [address] [place] Calcium [Mass/Vol] 9.8 mg/dL Normal 8.5-10.2 [facility] Comment on above: Order Comment: Speci men Type: BLOOD SPECIMENOrdering Facility: [facility] Address: [address] [place], [place] [address] Performed By: #### 2 4321-2 ####[facility] LABCLIA [id number] [address] [address] [place] Chloride [Moles/Vol] 102 mmol/L Normal 98-107 [facility] Comment on above: Order Comment: Speci men Type: BLOOD SPECIMENOrdering Facility: [facility] Address: [address] [place], [place] [address] Performed By: #### 2 4321-2 ####[facility] LABCLIA [id number] [address] [address] [place] CO2 [Moles/Vol] 29 mmol/L Normal 22-[address] [facility] Comment on above: Order Comment: Speci men Type: BLOOD SPECIMENOrdering Facility: [facility] Address: [address] [place], [place] [address] Performed By: #### 2 4321-2 ####[facility] LABCLIA [id number] [address] [address] [place] Creatinine [Mass/Vol] 1.34 mg/dL High 0.58-0.96 [facility] Comment on above: Order Comment: Katrina men Type: BLOOD SPECIMENOrdering Facility: [facility] Address: [address] [place] [address] Performed By: #### 2 4321-2 ####[facility] LABIA [id number] [address] [address] [place] eGFRcr SerPlBld CKD-EPI 2020 46 mL/min/1.73m??? Low >=[address] [facility] Comment on above: Order Comment: Lovei men Type: BLOOD SPECIMENOrdering Facility: [facility] Address: [address] [place] [address] Result Comment: Angelica mated Glomerular Filtration Rate (eGFR) is calculated using the 2020 CKD-EPI creatinine equation. This equation utilizes serum creatinine, sex, and age as parameters. The creatinine assay has traceable calibration to isotope dilution-mass spectrometry. Refer to KDIGO guidelines for clinical interpretation. In patients with unstable renal function, e.g. those with acute kidney injury, the eGFR may not accurately reflect actual GFR. Performed By: #### 2 4321-2 ####[facility] LABIA [id number] [address] [address] [place] Glucose [Mass/Vol] 178 mg/dL High 74-99 [facility] Comment on above: Order Comment: Speci men Type: BLOOD SPECIMENOrdering Facility: [facility] Address: [address] [place] [address] Result Comment: The [place] Diabetes Association (ADA) provides guidance for cutoff values for fasting glucose and random glucose. The ADA defines fasting as no caloric intake for at least 8 hours. Fasting plasma glucose results between 100 to 125 mg/dL indicate increased risk for diabetes (prediabetes). Fasting plasma glucose results greater than or equal to 126 mg/dL meet the criteria for diagnosis of diabetes. In the absence of unequivocal hyperglycemia, results should be confirmed by repeat testing. In a patient with classic symptoms of hyperglycemia or hyperglycemic crisis, random plasma glucose results greater than or equal to 200 mg/dL meet the criteria for diagnosis of diabetes. Reference: Standards of Medical Care in Diabetes 2016, [place] Diabetes Association. Diabetes Care. 2016.39(Suppl 1). Performed By: #### 2 4321-2 ####[facility] LABCLIA [id number] [place] [address] [place] Potassium [Moles/Vol] 3.8 mmol/L Normal 3.7-5.1 [facility] Comment on above: Order Comment: Speci men Type: BLOOD SPECIMENOrdering Facility: [facility] Address: [address] [place] [address] Performed By: #### 2 4321-2 ####[facility] LABIA [id number] [place] [address] [place] Sodium [Moles/Vol] 143 mmol/L Normal 136-144 [facility] Comment on above: Order Comment: Speci randall Type: BLOOD SPECIMENOrdering Facility: [facility] Address: [address] [place] [address] Performed By: #### 2 4321-2 ####[facility] LABIA [id number] [place] [address] [place] Urea nitrogen [Mass/Vol] 40 mg/dL High 7-[address] [facility] Comment on above: Order Comment: Speci men Type: BLOOD SPECIMENOrdering Facility: [facility] Address: [address] [place] [address] Performed By: #### 2 4321-2 ####[facility] LABIA [id number] [place] [address] [place] CBC W Auto Differential pane l (Bld)on 05-29-2025 Basophils (Bld) [#/Vol] 0.03 10*3/uL Normal <0.[address] [facility] Comment on above: Order Comment: Speci men Type: BLOOD SPECIMENOrdering Facility: [facility] Address: [address] [place] [address] Performed By: #### 5 7021-8 ####[facility] LABCLIA [id number] [place] [address] [place] Basophils/100 WBC (Bld) 0.4 % Normal [facility] Comment on above: Order Comment: Speci men Type: BLOOD SPECIMENOrdering Facility: [facility] Address: [address] [place] [address] Performed By: #### 5 7021-8 ####[facility] LABCLIA [id number] [place] [address] [place] Differential cell count method Nom (Bld) Auto Normal [facility] Comment on above: Order Comment: Speci men Type: BLOOD SPECIMENOrdering Facility: [facility] Address: [address] [place] [address] Performed By: #### 5 7021-8 ####[facility] LABCLIA [id number] [place] [address] [place] Eosinophils (Bld) [#/Vol] 0.23 10*3/uL Normal <0.[address] [facility] Comment on above: Order Comment: Speci men Type: BLOOD SPECIMENOrdering Facility: [facility] Address: [address] [place] [address] Performed By: #### 5 7021-8 ####[facility] LABCLIA [id number] [address] [place] Eosinophils/100 WBC (Bld) 3.3 % Normal [facility] Comment on above: Order Comment: Speci men Type: BLOOD SPECIMENOrdering Facility: [facility] Address: [address] [place] [address] Performed By: #### 5 7021-8 ####[facility] LABCLIA [id number] [address] [place] Erythrocyte distribution width (RBC) [Ratio] 14.6 % Normal 11.5-15.[address] [facility] Comment on above: Order Comment: Speci men Type: BLOOD SPECIMENOrdering Facility: [facility] Address: [address] [place] [address] Performed By: #### 5 7021-8 ####[facility] LABIA [id number] [place] [address] [place] Hematocrit (Bld) [Volume fraction] 38.8 % Normal 36.0-46.[address] [facility] Comment on above: Order Comment: Speci men Type: BLOOD SPECIMENOrdering Facility: [facility] Address: [address] [place] [address] Performed By: #### 5 7021-8 ####[facility] LABIA [id number] [place] [address] [place] Hemoglobin (Bld) [Mass/Vol] 12.0 g/dL Normal 11.5-15.[address] [facility] Comment on above: Order Comment: Speci men Type: BLOOD SPECIMENOrdering Facility: [facility] Address: [address] [place] [address] Performed By: #### 5 7021-8 ####[facility] LABIA [id number] [place] [address] [place] Immature granulocytes (Bld) [#/Vol] 0.03 10*3/uL Normal <0.[address] [facility] Comment on above: Order Comment: Speci men Type: BLOOD SPECIMENOrdering Facility: [facility] Address: [address] [place] [address] Performed By: #### 5 7021-8 ####[facility] LABCLIA [id number] [place] [address] [place] Immature granulocytes/100 WBC (Bld) 0.4 % Normal [facility] Comment on above: Order Comment: Speci men Type: BLOOD SPECIMENOrdering Facility: [facility] Address: [address] [place] [address] Performed By: #### 5 7021-8 ####[facility] LABCLIA [id number] [place] [address] [place] Lymphocytes (Bld) [#/Vol] 1.26 10*3/uL Normal 1.00-4.[address] [facility] Comment on above: Order Comment: Speci men Type: BLOOD SPECIMENOrdering Facility: [facility] Address: [address] [place] [address] Performed By: #### 5 7021-8 ####[facility] LABCLIA [id number] [place] [address] [place] Lymphocytes/100 WBC (Bld) 17.8 % Normal [facility] Comment on above: Order Comment: Speci men Type: BLOOD SPECIMENOrdering Facility: [facility] Address: [address] [place] [address] Performed By: #### 5 7021-8 ####[facility] LABCLIA [id number] [place] [address] [place] MCH (RBC) [Entitic mass] 28.1 pg Normal 26.0-34.[address] [facility] Comment on above: Order Comment: Speci men Type: BLOOD SPECIMENOrdering Facility: [facility] Address: [address] [place] [address] Performed By: #### 5 7021-8 ####[facility] LABCLIA [id number] [place] [id number] [place] MCHC (RBC) [Mass/Vol] 30.9 g/dL Normal 30.5-36.0 [facility] Comment on above: Order Comment: Speci men Type: BLOOD SPECIMENOrdering Facility: [facility] Address: [address] [place] [address] Performed By: #### 5 7021-8 ####[facility] LABCLIA [id number] [address] [address] [place] MCV (RBC) [Entitic vol] 90.9 fL Normal 80.0-100.0 [facility] Comment on above: Order Comment: Speci men Type: BLOOD SPECIMENOrdering Facility: [facility] Address: [address] [place] [address] Performed By: #### 5 7021-8 ####[facility] LABCLIA [id number] [place] [address] [place] Monocytes (Bld) [#/Vol] 0.42 10*3/uL Normal <0.[address] [facility] Comment on above: Order Comment: Speci men Type: BLOOD SPECIMENOrdering Facility: [facility] Address: [address] [place] [address] Performed By: #### 5 7021-8 ####[facility] LABCLIA [id number] [place] [address] [place] Monocytes/100 WBC (Bld) 5.9 % Normal [facility] Comment on above: Order Comment: Speci men Type: BLOOD SPECIMENOrdering Facility: [facility] Address: [address] [place] [address] Performed By: #### 5 7021-8 ####[facility] LABCLIA [id number] [place] [address] [place] Neutrophils (Bld) [#/Vol] 5.09 10*3/uL Normal 1.45-7.[address] [facility] Comment on above: Order Comment: Speci men Type: BLOOD SPECIMENOrdering Facility: [facility] Address: [address] [place] [address] Performed By: #### 5 7021-8 ####[facility] LABCLIA [id number] [place] [address] [place] Neutrophils/100 WBC (Bld) 72.2 % Normal [facility] Comment on above: Order Comment: Speci men Type: BLOOD SPECIMENOrdering Facility: [facility] Address: [address] [place] [address] Performed By: #### 5 7021-8 ####[facility] LABIA [id number] [address] [place] [address] [place] Nucleated RBC (Bld) [#/Vol] 10*3/uL Normal <0.[address] [facility] Comment on above: Order Comment: Speci men Type: BLOOD SPECIMENOrdering Facility: [facility] Address: [address] [place] [address] Performed By: #### 5 7021-8 ####[facility] LABIA [id number] [address], [place] [address] [place] Nucleated RBC/100 WBC (Bld) [Ratio] 0.0 /100 WBC Normal [facility] Comment on above: Order Comment: Speci men Type: BLOOD SPECIMENOrdering Facility: [facility] Address: [address] [place] [address] Performed By: #### 5 7021-8 ####[facility] LABIA [id number] [place] [id number] [place] Platelet mean volume (Bld) [Entitic vol] 11.8 fL Normal 9.0-12.[address] [facility] Comment on above: Order Comment: Speci men Type: BLOOD SPECIMENOrdering Facility: [facility] Address: [address] [place] [address] Performed By: #### 5 7021-8 ####[facility] LABIA [id number] [address], [facility] [place] Platelets (Bld) [#/Vol] 171 10*3/uL Normal 150-[address] [facility] Comment on above: Order Comment: Speci men Type: BLOOD SPECIMENOrdering Facility: [facility] Address: [address] [place] [address] Performed By: #### 5 7021-8 ####[facility] LABIA [id number] [place] [id number] [place] RBC (Bld) [#/Vol] 4.27 10*6/uL Normal 3.90-5.20 [facility] Comment on above: Order Comment: Speci men Type: BLOOD SPECIMENOrdering Facility: [facility] Address: [address] [place] [address] Performed By: #### 5 7021-8 ####[facility] LABIA [id number] [place] [id number] [place] WBC (Bld) [#/Vol] 7.06 10*3/uL Normal 3.70-11.00 [facility] Comment on above: Order Comment: Speci men Type: BLOOD SPECIMENOrdering Facility: [facility] Address: [address] [place] [address] Performed By: #### 5 7021-8 ####[facility] LABIA [id number] [address] [place] CNOVon 05-29-2025 CNOV Office Visit (INTMWS ) -------- SAMANTHA ROMERO ([id number]) 1965 F Date Time Provider Department 05/29/25 3:00 PM DENISE ALVARADO INTMWS During your visit today, we recorded the following information about you: Pulse Respiration Blood pressure Weight 76/minute 16/minute 122/62 112.6 kg Denise Alvarado APRN.[employer]ACTICE MANAGER 05/29/2025 3:36 PM Signed Subjective Patient ID: Samantha is a 59 year old female who presents for Follow Up. The patient is a 59-year-old female with diabetes mellitus, hypothyroidism, hyperlipidemia, and leno, presenting for evaluation of lower extremity edema and diuretic management. HPI CHF: - Samantha Romero has shown significant improvement in symptoms since the last visit. - Notable weight loss of 23 lbs, from 271 lbs to 248 lbs. - Samantha reports easier breathing and less heaviness in legs. - Taking diuretic BID; Samantha reports increased urination. - Still experiences fatigue and weakness. - Recent episode of diarrhea with an accident this morning. - Persistent edema in feet and toes, causing discomfort when walking. Hypothyroidism: - Recent lab work indicated poor control of thyroid levels. - Taking thyroid medication, but Samantha is unsure about timing with other medications. - Samantha inquires about taking thyroid medication at bedtime with other medications (gabapentin, cyproheptadine, colestipol). Diabetes: - Using a continuous glucose monitor and Samantha expresses satisfaction with it. - No current appointment with an turkey cleaner. - Taking diabetes medication; unclear adherence Hypothyroidism. She is doing well on her current dose of Synthroid. Noting fatigue and weight gain. TSH Date Value 03/28/2025 60.600 mIU/L 12/06/2024 116.000 mIU/L 04/10/2021 2.340 uU/mL 04/10/2020 1.210 uU/mL ) DIABETES MELLITUS: Patient's last HgA1C was Hemoglobin A1C (%) Date Value 03/28/2025 10.0 10/16/2024 9.2 04/10/2021 8.3 10/25/2020 10.3 Hemoglobin A1C (POCT) (%) Date Value 10/21/2022 11.0 ) Without report of headache, chest pain, palpitations, dyspnea, and PND. Last 3 Encounter BP Readings: Date: BP: 05/22/2025 118/79 03/28/2025 112/54 12/08/2024 115/67 ROS Constitutional: (+) unintentional weight loss, (+) fatigue, (+) weakness Cardiovascular: (+) bilateral pedal edema Gastrointestinal: (+) diarrhea Genitourinary: (+) polyuria Objective BP 122/62 Pulse 76 Resp 16 Wt 112.6 kg (248 lb 3.8 oz) LMP 04/27/2016 SpO2 98% BMI 42.12 kg/m? Physical Exam Vitals and nursing note reviewed. Constitutional: Appearance: Normal appearance. HENT: Head: Normocephalic. Eyes: Conjunctiva/sclera: Conjunctivae normal. Cardiovascular: Rate and Rhythm: Normal rate and regular rhythm. Heart sounds: Normal heart sounds. Pulmonary: Effort: Pulmonary effort is normal. Breath sounds: Normal breath sounds. Abdominal: General: Bowel sounds are normal. Palpations: Abdomen is soft. Musculoskeletal: Right lower leg: Edema (2+ at ankle) present. Left lower leg: Edema (2+ at ankle) present. Skin: General: Skin is warm and dry. Neurological: Mental Status: She is alert. Mental status is at baseline. Latest Ref Rng 12/06/2024 03/28/2025 WBC 3.70 - 11.00 k/uL 5.33 4.05 RBC 3.90 - 5.20 m/uL 4.00 3.84 (L) Hemoglobin 11.5 - 15.5 g/dL 11.4 (L) 10.9 (L) Hematocrit 36.0 - 46.0 % 36.7 35.5 (L) MCV 80.0 - 100.0 fL 91.8 92.4 MCH 26.0 - 34.0 pg 28.5 28.4 MCHC 30.5 - 36.0 g/dL 31.1 30.7 RDW-CV 11.5 - 15.0 % 14.3 13.6 Platelet Count 150 - 400 k/uL 133 (L) 133 (L) MPV 9.0 - 12.7 fL 11.9 11.7 Neut% % 63.9 63.7 Abs Neut (ANC) 1.45 - 7.50 k/uL 3.41 2.58 Lymph% % 22.3 21.0 Abs Lymph 1.00 - 4.00 k/uL 1.19 0.85 (L) [place]% % 8.1 11.1 Abs [place] <0.87 k/uL 0.43 0.45 Eosin% % 4.5 3.2 Abs Eosin <0.46 k/uL 0.24 0.13 Baso% % 0.4 0.5 Abs Baso <0.11 k/uL <0.03 <0.03 Immature Gran % % 0.8 0.5 IMMATURE GRANS (ABS) <0.10 k/uL 0.04 <0.03 NRBC /100 WBC 0.0 0.0 Absolute nRBC <0.01 k/uL <0.01 <0.01 DTYPE Auto Auto Protein, Total 6.3 - 8.0 g/dL 6.4 6.6 Albumin 3.9 - 4.9 g/dL 3.5 (L) 3.7 (L) Calcium 8.5 - 10.2 mg/dL 8.9 9.1 Bilirubin, Total 0.2 - 1.3 mg/dL <0.2 (L) 0.2 Alkaline Phosphatase 34 - 123 U/L 76 65 AST 13 - 35 U/L 27 23 ALT 7 - 38 U/L 30 20 Glucose 74 - 99 mg/dL 145 (H) 266 (H) BUN 7 - 21 mg/dL 41 (H) 35 (H) Creatinine 0.58 - 0.96 mg/dL 1.39 (H) 1.42 (H) Sodium 136 - 144 mmol/L 139 140 Potassium 3.7 - 5.1 mmol/L 3.9 3.9 Chloride 98 - 107 mmol/L 100 100 CO2 22 - 30 mmol/L 33 (H) 27 Anion Gap 8 - 15 mmol/L 6 (L) 13 eGFR >=60 mL/min/1.73m? 44 (L) 43 (L) Cholesterol, Total <200 mg/dL 209 (H) Triglyceride <150 mg/dL 224 (H) HDL Cholesterol >39 mg/dL 61 Non HDL Cholesterol <130 mg/dL 148 (H) Fasting Time hrs 12 VLDL Cholesterol <30 mg/dL 45 (H) TC:HDL Ratio <5.10 3.43 LDL Cholesterol, Calculated <100 mg/dL 103 (H) LDL:HDL Ratio <2.54 1.69 Hem (more content not included)... Normal [facility] CNOVon 05-22-2025 CNOV Office Visit (INTMWS ) -------- SAMANTHA ROMERO ([id number]) 1965 F Date Time Provider Department 05/22/25 3:00 PM DENISE ALVARADO During your visit today, we recorded the following information about you: Pulse Respiration Blood pressure Weight 66/minute 16/minute 118/79 123 kg Denise Alvarado APRN.QUALITY ASSURANCE PRACTICE MANAGER 05/22/2025 3:42 PM Signed Subjective Patient ID: Samantha is a 59 year old female who presents for No chief complaint on file.. HPI Presents for edema and weight gain. Samantha Romero is a 59-year-old female with a history of hypothyroidism and diabetes, presenting for evaluation of generalized edema and weight gain. Edema and Weight Gain: - Generalized edema and weight gain since March. - Weight increased from 256 lbs in March to 271 lbs currently. - Edema onset was sudden over the last 2.5 weeks. - Edema in extremities causing difficulty with mobility and ADLs. - Taking Lasix BID; missed a few doses but has some remaining. No recent refill noted in review of outside medications - Experiencing increased dyspnea. - Scheduled to see a corporate vp advertising & online and solar installation foreman in July. Hypothyroidism: - Taking 300 mcg of thyroid medication; has missed doses. - Samantha reports persistent fatigue. Diabetes: - Taking diabetes medication; unclear adherenceadherence not specified. Hypothyroidism. She is doing well on her current dose of Synthroid. Noting fatigue and weight gain. TSH Date Value 03/28/2025 60.600 mIU/L 12/06/2024 116.000 mIU/L 04/10/2021 2.340 uU/mL 04/10/2020 1.210 uU/mL ) DIABETES MELLITUS: Patient's last HgA1C was Hemoglobin A1C (%) Date Value 03/28/2025 10.0 10/16/2024 9.2 04/10/2021 8.3 10/25/2020 10.3 Hemoglobin A1C (POCT) (%) Date Value 10/21/2022 11.0 ) Without report of headache, chest pain, palpitations, dyspnea, and PND. Last 3 Encounter BP Readings: Date: BP: 05/22/2025 118/79 03/28/2025 112/54 12/08/2024 115/67 ROS Constitutional: (+) weight gain, (+) fatigue Respiratory: (+) shortness of breath Musculoskeletal: (+) generalized swelling, (+) bilateral leg swelling, (+) hand swelling, (+) foot swelling Objective LMP 04/27/2016 Physical Exam Vitals and nursing note reviewed. Constitutional: Appearance: Normal appearance. HENT: Head: Normocephalic. Eyes: Conjunctiva/sclera: Conjunctivae normal. Cardiovascular: Rate and Rhythm: Normal rate and regular rhythm. Heart sounds: Normal heart sounds. Pulmonary: Effort: Pulmonary effort is normal. Breath sounds: Normal breath sounds. Abdominal: General: Bowel sounds are normal. Palpations: Abdomen is soft. Musculoskeletal: Right lower leg: Edema (2+ to thigh) present. Left lower leg: Edema (2+ to thigh) present. Skin: General: Skin is warm and dry. Neurological: Mental Status: She is alert. Mental status is at baseline. Latest Ref Rng 12/06/2024 03/28/2025 WBC 3.70 - 11.00 k/uL 5.33 4.05 RBC 3.90 - 5.20 m/uL 4.00 3.84 (L) Hemoglobin 11.5 - 15.5 g/dL 11.4 (L) 10.9 (L) Hematocrit 36.0 - 46.0 % 36.7 35.5 (L) MCV 80.0 - 100.0 fL 91.8 92.4 MCH 26.0 - 34.0 pg 28.5 28.4 MCHC 30.5 - 36.0 g/dL 31.1 30.7 RDW-CV 11.5 - 15.0 % 14.3 13.6 Platelet Count 150 - 400 k/uL 133 (L) 133 (L) MPV 9.0 - 12.7 fL 11.9 11.7 Neut% % 63.9 63.7 Abs Neut (ANC) 1.45 - 7.50 k/uL 3.41 2.58 Lymph% % 22.3 21.0 Abs Lymph 1.00 - 4.00 k/uL 1.19 0.85 (L) [place]% % 8.1 11.1 Abs [place] <0.87 k/uL 0.43 0.45 Eosin% % 4.5 3.2 Abs [place] <0.46 k/uL 0.24 0.13 Baso% % 0.4 0.5 Abs Baso <0.11 k/uL <0.03 <0.03 Immature Gran % % 0.8 0.5 IMMATURE GRANS (ABS) <0.10 k/uL 0.04 <0.03 NRBC /100 WBC 0.0 0.0 Absolute nRBC <0.01 k/uL <0.01 <0.01 DTYPE Auto Auto Protein, Total 6.3 - 8.0 g/dL 6.4 6.6 Albumin 3.9 - 4.9 g/dL 3.5 (L) 3.7 (L) Calcium 8.5 - 10.2 mg/dL 8.9 9.1 Bilirubin, Total 0.2 - 1.3 mg/dL <0.2 (L) 0.2 Alkaline Phosphatase 34 - 123 U/L 76 65 AST 13 - 35 U/L 27 23 ALT 7 - 38 U/L 30 20 Glucose 74 - 99 mg/dL 145 (H) 266 (H) BUN 7 - 21 mg/dL 41 (H) 35 (H) Creatinine 0.58 - 0.96 mg/dL 1.39 (H) 1.42 (H) Sodium 136 - 144 mmol/L 139 140 Potassium 3.7 - 5.1 mmol/L 3.9 3.9 Chloride 98 - 107 mmol/L 100 100 CO2 22 - 30 mmol/L 33 (H) 27 Anion Gap 8 - 15 mmol/L 6 (L) 13 eGFR >=60 mL/min/1.73m? 44 (L) 43 (L) Cholesterol, Total <200 mg/dL 209 (H) Triglyceride <150 mg/dL 224 (H) HDL Cholesterol >39 mg/dL 61 Non HDL Cholesterol <130 mg/dL 148 (H) Fasting Time hrs 12 VLDL Cholesterol <30 mg/dL 45 (H) TC:HDL Ratio <5.10 3.43 LDL Cholesterol, Calculated <100 mg/dL 103 (H) LDL:HDL Ratio <2.54 1.69 Hemoglobin A1C 4.3 - 5.6 % 10.0 (H) Estimated Average Glucose mg/dL 240 NT Pro BNP <125 pg/mL <36 TSH 0.270 - 4.200 mIU/L 116.000 (H) 60.600 (H) Free T3 2.3 - 4.1 pg/mL 1.5 (L) Free T4 0.9 - 1.7 ng/dL 0.7 (L) 1. Weight gain (R63.5) 2. Edema, unspecified type (R60.9) - Acute weight gain of 24 lbs s (more content not included)... Normal [facility] CNCOon 04-04-2025 CNCO Letter Text Normal [facility] CBC W Auto Differential pane l (Bld)on 03-28-2025 Basophils (Bld) [#/Vol] [facility] Basophils/100 WBC (Bld) 0.5 % C [facility] Differential cell count method Nom (Bld) Auto [facility] Eosinophils (Bld) [#/Vol] 0.13 10*3/uL [facility] Eosinophils/100 WBC (Bld) 3.2 % [facility] Erythrocyte distribution width (RBC) [Ratio] 13.6 % 11.5 - 15.0 % [facility] Hematocrit (Bld) [Volume fraction] 35.5 % Low 36.0 - 46.0 % [facility] Hemoglobin (Bld) [Mass/Vol] 10.9 g/dL Low 11.5 - 15.5 g/dL [facility] Immature granulocytes (Bld) [#/Vol] [facility] Immature granulocytes/100 WBC (Bld) 0.5 % [facility] Interpretation and review of laboratory results Abnormal [facility] Lymphocytes (Bld) [#/Vol] 0.85 10*3/uL Low [facility] Lymphocytes/100 WBC (Bld) 21 % [facility] MCH (RBC) [Entitic mass] 28.4 pg 26.0 - 34.0 pg [facility] MCHC (RBC) [Mass/Vol] 30.7 g/dL 30.5 - 36.0 g/dL [facility] MCV (RBC) [Entitic vol] 92.4 fL 80.0 - 100.0 fL [facility] Monocytes (Bld) [#/Vol] 0.45 10*3/uL [facility] Monocytes/100 WBC (Bld) 11.1 % C [facility] Neutrophils (Bld) [#/Vol] 2.58 10*3/uL [facility] Neutrophils/100 WBC (Bld) 63.7 % [facility] Nucleated RBC (Bld) [#/Vol] [facility] Nucleated RBC/100 WBC (Bld) [Ratio] 0 % /100 WBC [facility] Platelet mean volume (Bld) [Entitic vol] 11.7 fL 9.0 - 12.7 fL [facility] Platelets (Bld) [#/Vol] 133 10*3/uL Low [facility] RBC (Bld) [#/Vol] 3.84 10*6/uL Low 3.90 - 5.2 0 m/uL [facility] WBC (Bld) [#/Vol] 4.05 10*3/uL [facility] Basophils (Bld) [#/Vol] 10*3/uL Normal <0.11 [facility] Comment on above: Order Comment: Speci men Type: BLOOD SPECIMENOrdering Facility: [facility] Address: [address] [place] [address] Performed By: #### 5 7021-8 ####[facility] LABCLIA [id number] [place] [address] [place] Basophils/100 WBC (Bld) 0.5 % Normal C [facility] Comment on above: Order Comment: Speci men Type: BLOOD SPECIMENOrdering Facility: [facility] Address: [address] [place] [address] Performed By: #### 5 7021-8 ####[facility] LABCLIA [id number] [place] [address] [place] Differential cell count method Nom (Bld) Auto Normal [facility] Comment on above: Order Comment: Speci men Type: BLOOD SPECIMENOrdering Facility: [facility] Address: [address] [place] [address] Performed By: #### 5 7021-8 ####[facility] LABCLIA [id number] [place] [address] [place] Eosinophils (Bld) [#/Vol] 0.13 10*3/uL Normal <0.[address] [facility] Comment on above: Order Comment: Speci men Type: BLOOD SPECIMENOrdering Facility: [facility] Address: [address] [place] [address] Performed By: #### 5 7021-8 ####[facility] LABCLIA [id number] [place] [address] [place] Eosinophils/100 WBC (Bld) 3.2 % Normal [facility] Comment on above: Order Comment: Speci men Type: BLOOD SPECIMENOrdering Facility: [facility] Address: [address] [place] [address] Performed By: #### 5 7021-8 ####[facility] LABCLIA [id number] [place] [address] [place] Erythrocyte distribution width (RBC) [Ratio] 13.6 % Normal 11.5-15.[address] [facility] Comment on above: Order Comment: Speci men Type: BLOOD SPECIMENOrdering Facility: [facility] Address: [address] [place] [address] Performed By: #### 5 7021-8 ####[facility] LABCLIA [id number] [place] [address] [place] Hematocrit (Bld) [Volume fraction] 35.5 % Low 36.0-46.[address] [facility] Comment on above: Order Comment: Speci men Type: BLOOD SPECIMENOrdering Facility: [facility] Address: [address] [place] [address] Performed By: #### 5 7021-8 ####[facility] LABCLIA [id number] [place] [address] [place] Hemoglobin (Bld) [Mass/Vol] 10.9 g/dL Low 11.5-15.[address] [facility] Comment on above: Order Comment: Speci men Type: BLOOD SPECIMENOrdering Facility: [facility] Address: [address] [place] [address] Performed By: #### 5 7021-8 ####[facility] LABCLIA [id number] [place] [id number] [place] Immature granulocytes (Bld) [#/Vol] 10*3/uL Normal <0.[address] [facility] Comment on above: Order Comment: Speci men Type: BLOOD SPECIMENOrdering Facility: [facility] Address: [address] [place] [address] Performed By: #### 5 7021-8 ####[facility] LABCLIA [id number] [place] [address] [place] Immature granulocytes/100 WBC (Bld) 0.5 % Normal [facility] Comment on above: Order Comment: Speci men Type: BLOOD SPECIMENOrdering Facility: [facility] Address: [address] [place] [address] Performed By: #### 5 7021-8 ####[facility] LABIA [id number] [place] [address] [place] Lymphocytes (Bld) [#/Vol] 0.85 10*3/uL Low 1.00-4.[address] [facility] Comment on above: Order Comment: Speci men Type: BLOOD SPECIMENOrdering Facility: [facility] Address: [address] [place] [address] Performed By: #### 5 7021-8 ####[facility] LABIA [id number] [address] [place] Lymphocytes/100 WBC (Bld) 21.0 % Normal [facility] Comment on above: Order Comment: Speci men Type: BLOOD SPECIMENOrdering Facility: [facility] Address: [address] [place] [address] Performed By: #### 5 7021-8 ####[facility] LABIA [id number] [place] [address] [place] MCH (RBC) [Entitic mass] 28.4 pg Normal 26.0-34.[address] [facility] Comment on above: Order Comment: Speci men Type: BLOOD SPECIMENOrdering Facility: [facility] Address: [address] [place] [address] Performed By: #### 5 7021-8 ####[facility] LABCLIA [id number] [place] [address] [place] MCHC (RBC) [Mass/Vol] 30.7 g/dL Normal 30.5-36.0 [facility] Comment on above: Order Comment: Speci men Type: BLOOD SPECIMENOrdering Facility: [facility] Address: [address] [place] [address] Performed By: #### 5 7021-8 ####[facility] LABCLIA [id number] [place] [address] [place] MCV (RBC) [Entitic vol] 92.4 fL Normal 80.0-100.0 [facility] Comment on above: Order Comment: Speci men Type: BLOOD SPECIMENOrdering Facility: [facility] Address: [address] [place] [address] Performed By: #### 5 7021-8 ####[facility] LABIA [id number] [place] [address] [place] Monocytes (Bld) [#/Vol] 0.45 10*3/uL Normal <0.[address] [facility] Comment on above: Order Comment: Speci men Type: BLOOD SPECIMENOrdering Facility: [facility] Address: [address] [place] [address] Performed By: #### 5 7021-8 ####[facility] LABCLIA [id number] [address] [place] Monocytes/100 WBC (Bld) 11.1 % Normal [facility] Comment on above: Order Comment: Speci men Type: BLOOD SPECIMENOrdering Facility: [facility] Address: [address] [place] [address] Performed By: #### 5 7021-8 ####[facility] LABIA [id number] [place] [address] [place] Neutrophils (Bld) [#/Vol] 2.58 10*3/uL Normal 1.45-7.[address] [facility] Comment on above: Order Comment: Speci men Type: BLOOD SPECIMENOrdering Facility: [facility] Address: [address] [place] [address] Performed By: #### 5 7021-8 ####[facility] LABCLIA [id number] [place] [address] [place] Neutrophils/100 WBC (Bld) 63.7 % Normal [facility] Comment on above: Order Comment: Speci men Type: BLOOD SPECIMENOrdering Facility: [facility] Address: [address] [place] [address] Performed By: #### 5 7021-8 ####[facility] LABCLIA [id number] [place] [address] [place] Nucleated RBC (Bld) [#/Vol] 10*3/uL Normal <0.[address] [facility] Comment on above: Order Comment: Speci men Type: BLOOD SPECIMENOrdering Facility: [facility] Address: [address] [place] [address] Performed By: #### 5 7021-8 ####[facility] LABIA [id number] [place] [address] [place] Nucleated RBC/100 WBC (Bld) [Ratio] 0.0 /100 WBC Normal [facility] Comment on above: Order Comment: Speci men Type: BLOOD SPECIMENOrdering Facility: [facility] Address: [address] [place] [address] Performed By: #### 5 7021-8 ####[facility] LABCLIA [id number] [place] [address] [place] Platelet mean volume (Bld) [Entitic vol] 11.7 fL Normal 9.0-12.[address] [facility] Comment on above: Order Comment: Speci men Type: BLOOD SPECIMENOrdering Facility: [facility] Address: [address] [place] [address] Performed By: #### 5 7021-8 ####[facility] LABIA [id number] [place] [address] [place] Platelets (Bld) [#/Vol] 133 10*3/uL Low 150-[address] [facility] Comment on above: Order Comment: Speci men Type: BLOOD SPECIMENOrdering Facility: [facility] Address: [address] [place] [address] Performed By: #### 5 7021-8 ####[facility] LABIA [id number] [place] [address] [place] RBC (Bld) [#/Vol] 3.84 10*6/uL Low 3.90-5.20 [facility] Comment on above: Order Comment: Speci men Type: BLOOD SPECIMENOrdering Facility: [facility] Address: [address] [place] [address] Performed By: #### 5 7021-8 ####[facility] LABIA [id number] [place] [address] [place] WBC (Bld) [#/Vol] 4.05 10*3/uL Normal 3.70-11.00 [facility] Comment on above: Order Comment: Speci men Type: BLOOD SPECIMENOrdering Facility: [facility] Address: [address] [place] [address] Performed By: #### 5 7021-8 ####[facility] LABIA [id number] [place] [id number] [facility] CNOVon 03-28-2025 CNOV Office Visit (INTMWS ) -------- SAMANTHA ROMERO ([id number]) 1965 F Date Time Provider Department 03/28/25 3:00 PM CO[place] During your visit today, we recorded the following information about you: Pulse Blood pressure Weight 73/minute 112/54 112.5 kg Cole Bower APRN.ADVISORY SOFTWARE ENGINEER 03/28/2025 3:55 PM Signed SUBJECTIVE Samantha Romero is a 59 year old female here today for a check up on her medical problems. Chief Complaint Patient presents with: Recheck: did complain of right sided chest pain that started on her way into the office. Describes it as a sore feeling. HPI Samantha Romero is a 59-year-old female with a history of diabetes mellitus, neuropathy, and hypothyroidism, presenting for follow-up. Samantha reports experiencing right-sided chest pain while en route to the clinic today. The pain, located near the shoulder, has decreased in intensity but is still present. It is exacerbated by palpation. She denies any specific triggers for the pain, noting that it began while she was sitting in the car. She continues to experience pain in her arm, particularly when attempting to raise it. She tries to move it as much as possible to maintain mobility. She is currently taking Reynolds for pain management, which she reports is effective in keeping her pain mild. She is also taking gabapentin 800 mg TID. Samantha has been unable to take her Tresiba for the past 2 weeks due to transportation issues preventing her from picking up the medication. As a result, she reports fluctuating blood glucose levels. She is still taking Trulicity once a week. She reports persistent swelling, which she notes is making it difficult for her to walk and get around. She is currently taking Lasix and was previously prescribed metolazone for 10 days last month. She requests a refill of metolazone. She has also noticed weight loss, with her current weight at 248 lbs, down from 254 lbs in December. She mentions that she has never weighed over 200 lbs before. She is unsure if her weight has decreased further. Samantha has a history of hypothyroidism and is due for a recheck of her thyroid function. She was informed that her TSH level was 116 mU/L. She is also due for blood work to check her A1c, but she has not been taking her Tresiba. In regards to medications currently taken for pain management, the patient is tolerating these medications well. She denies side effects and she reports that the medications improve her quality of life and ability to function. She denies misuse, abuse or diversion of medications. Overall her pain is unchanged than the last visit. Her medications were reviewed today and her list is now up to date. Medications Current Outpatient Medications Medication Sig HYDROcodone-acetaminophe n (NORCO) 5-325 mg per tablet Take 1 tablet by mouth four times a day as needed for pain for up to 30 days. Patient should start on March 10, 2025. meloxicam (MOBIC) 15 mg tablet Take 1 tablet by mouth once daily as needed for pain. With food. omeprazole (PRILOSEC) 40 mg capsule Take 1 capsule by mouth once daily. dulaglutide (TRULICITY) 4.5 mg/0.5 mL pen injector Inject 4.5 mg subcutaneously one time a week. gabapentin (NEURONTIN) 800 mg tablet Take 1 tablet by mouth three times a day for 90 days. Patient should start on February 08, 2025. levothyroxine (SYNTHROID) 150 mcg tablet Take 2 tablets by mouth once daily. keTORolac (ACULAR) 0.5 % ophthalmic solution EVERY 6 HOURS prednisoLONE acetate (PRED FORTE) 1 % ophthalmic suspension EVERY 6 HOURS promethazine (PHENERGAN) 25 mg tablet Take 25 mg by mouth every 6 hours as needed. empagliflozin (JARDIANCE) 25 mg tablet Take 1 tablet by mouth daily with breakfast. ON HOLD FOLLOWING HOSPITAL DISCHARGE 04/2024 lisinopril 2.5 mg tablet Take 1 tablet by mouth once daily. ON HOLD FOLLOWING HOSPITAL DISCHARGE 04/2024 insulin aspart U-100 (NOVOLOG) 100 unit/mL (3 mL) INJECT 20 UNITS SUBCUTANEOUSLY WITH MEALS THREE TIMES A DAY PLUS SLIDING SCALE #2 (add 2 units for every 50 points above 150 mg/dl) BASED ON PRE-MEAL BLOOD SUGAR (MAX: 96 UNITS PER DAY) insulin degludec (TRESIBA FLEXTOUCH U-200) 200 unit/mL (3 mL) injection Inject 80 Units subcutaneously daily at bedtime. dicyclomine (BENTYL) 10 mg capsule Take 1 capsule by mouth before meals and at bedtime. for abdominal pain Fenofibrate (LOFIBRA) 160 mg tablet Take 1 tablet by mouth once daily. rosuvastatin (CRESTOR) 10 mg tablet Take 1 tablet by mouth daily at bedtime. hydrOXYzine HCl (ATARAX) 25 mg tablet Take 1-2 tablets by mouth at bedtime as needed. fluticasone (FLONASE) 50 mcg/actuation nasal spray Use 1-2 Sprays in each nostril once daily as needed. Cholecalciferol, Vitamin D3, 125 mcg (5,000 unit) cap Take 1 capsule by mouth once daily. potassium chloride (K-TAB) 10 mEq tablet Take 1 tablet by mouth once daily. metOLazone (ZAROX (more content not included)... [facility] SAMANTHA ROMERO ([id number]) 1965 F Date Time Provider Department 03/28/25 SARINA ADAMS INTWS During your visit today, we recorded the following information about you: Nida Hamilton LPN 03/28/2025 3:55 PM Signed Need PA done on Tresiba rx, was transferred from [facility] to [facility] by [facility] L[employer]. Needs PA because of the high dose 80 units daily at bedtime. She is blocked could not fax a PA or send electronic PA request to the office. PRIOR AUTHORIZATION Medication for Prior Authorization: Tresiba Other formulary meds available : NO Insurance Company: [facility] [employer] phone number: [phone] Patient insurance ID number: [id number] GARIMA Jefferson Janice, LPN 03/28/2025 4:13 PM Signed Electronic PA requested. Maylin Delaney LPN 03/28/2025 4:26 PM Signed This was already completed and approved from 12/2024 to 12/2025 per encounter 12/11/24. Pharmacy notified. They report the pt should call her insurance. Maylin Delaney LPN 03/29/2025 11:32 AM Signed Called [facility]. They report pharmacy ran rx incorrectly. They say there is a paid claim today. Allergies As of Date: 03/28/2025 Noted Allergy Reaction METFORMIN 09/10/2016 6 - Diarrhea Comments: Diarrhea every time takes, even with ER dose OXYCODONE 07/07/2021 8 - GI Upset PERCOCET (OXYCODONE-ACETAMINOPHEN )05/07/2014 8 - GI Upset Comments: and off balance Date Reviewed: 03/28/2025 Reviewed by: Cole Bower APRN.ADVISORY SOFTWARE ENGINEER - Fully Assessed Reason for Visit: Insurance Authorization [[id number]] Prescriptions as of 03/29/2025 - potassium chloride (K-TAB) 10 mEq tablet Take 1 tablet by mouth once daily. - metOLazone (ZAROXOLYN) 10 mg tablet Take 1 tablet by mouth once daily for 5 days. - flash glucose sensor (FREESTYLE TAYLOR 14 DAY SENSOR) kit Use to check blood sugar 4 times daily. Please give 2 sensors per refill - HYDROcodone-acetaminophe n (NORCO) 5-325 mg per tablet Take 1 tablet by mouth four times a day as needed for pain for up to 30 days. Patient should start on March 10, 2025. - meloxicam (MOBIC) 15 mg tablet Take 1 tablet by mouth once daily as needed for pain. With food. - omeprazole (PRILOSEC) 40 mg capsule Take 1 capsule by mouth once daily. - dulaglutide (TRULICITY) 4.5 mg/0.5 mL pen injector Inject 4.5 mg subcutaneously one time a week. - gabapentin (NEURONTIN) 800 mg tablet Take 1 tablet by mouth three times a day for 90 days. Patient should start on February 08, 2025. - blood sugar diagnostic (BLOOD GLUCOSE TEST) test strip Test blood sugar(s) 4 times daily. Dx: Type 2 DM - Controlled E11.9 Insulin: Yes - blood sugar diagnostic (FREESTYLE LITE STRIPS) test strip Test blood sugar(s) 4 times daily. Dx: Other DM Code E11.40 Insulin: Yes - levothyroxine (SYNTHROID) 150 mcg tablet Take 2 tablets by mouth once daily. - insulin degludec (TRESIBA FLEXTOUCH U-200) 200 unit/mL (3 mL) injection Inject 80 Units subcutaneously daily at bedtime. - furosemide (LASIX) 40 mg tablet Take 1 tablet by mouth two times a day. - keTORolac (ACULAR) 0.5 % ophthalmic solution EVERY 6 HOURS - prednisoLONE acetate (PRED FORTE) 1 % ophthalmic suspension EVERY 6 HOURS - promethazine (PHENERGAN) 25 mg tablet Take 25 mg by mouth every 6 hours as needed. - empagliflozin (JARDIANCE) 25 mg tablet Take 1 tablet by mouth daily with breakfast. ON HOLD FOLLOWING HOSPITAL DISCHARGE 04/2024 - lisinopril 2.5 mg tablet Take 1 tablet by mouth once daily. ON HOLD FOLLOWING HOSPITAL DISCHARGE 04/2024 - insulin aspart U-100 (NOVOLOG) 100 unit/mL (3 mL) INJECT 20 UNITS SUBCUTANEOUSLY WITH MEALS THREE TIMES A DAY PLUS SLIDING SCALE #2 (add 2 units for every 50 points above 150 mg/dl) BASED ON PRE-MEAL BLOOD SUGAR (MAX: 96 UNITS PER DAY) - insulin degludec (TRESIBA FLEXTOUCH U-200) 200 unit/mL (3 mL) injection Inject 80 Units subcutaneously daily at bedtime. - dicyclomine (BENTYL) 10 mg capsule Take 1 capsule by mouth before meals and at bedtime. for abdominal pain - Fenofibrate (LOFIBRA) 160 mg tablet Take 1 tablet by mouth once daily. - rosuvastatin (CRESTOR) 10 mg tablet Take 1 tablet by mouth daily at bedtime. - hydrOXYzine HCl (ATARAX) 25 mg tablet Take 1-2 tablets by mouth at bedtime as needed. - Insulin [place], Disposable, (DROPLET PEN NEEDLE) 31 gauge x 3/16 use 1 PEN NEEDLE to inject MEDICATION subcutaneously four times a day - fluticasone (FLONASE) 50 mcg/actuation nasal spray Use 1-2 Sprays in each nostril once daily as needed. - PEG 400-propylene glycol (SYSTANE ULTRA) 0.4-0.3 % ophthalmic solution Use 1 Drop in both eyes four times daily. - Cholecalciferol, Vitamin D3, 125 mcg (5,000 unit) cap Take 1 capsule by mouth once daily. - blood sugar diagnostic (BLOOD GLUCOSE TEST) test strip Test blood sugar(s) 4 times daily. Dx: Other DM Code E11.40 Insulin: Yes - OXYGEN, YVETTE (more content not included)... Normal [facility] metabolic 2000 panelon 03-28-2025 Albumin [Mass/Vol] 3.7 g/dL Low 3.9-4.9 [facility] Comment on above: Order Comment: Speci men Type: BLOOD SPECIMENOrdering Facility: [facility] Address: [address] [place] [address] Performed By: #### 3 024-7, 3051-0, 83556-1, 3016-3 ####[facility] LABCLIA [id number] [place] [address] [place] ALP [Catalytic activity/Vol] 65 U/L Normal 34-[address] [facility] Comment on above: Order Comment: Speci men Type: BLOOD SPECIMENOrdering Facility: [facility] Address: [address] [place] [address] Performed By: #### 3 024-7, 3051-0, 08785-7, 3016-3 ####[facility] LABCLIA [id number] [place] [address] [place] ALT [Catalytic activity/Vol] 20 U/L Normal 7-[address] [facility] Comment on above: Order Comment: Speci men Type: BLOOD SPECIMENOrdering Facility: [facility] Address: [address] [place] [address] Performed By: #### 3 024-7, 3051-0, 75124-1, 3016-3 ####[facility] LABCLIA [id number] [place] [id number] [place] Anion gap [Moles/Vol] 13 mmol/L Normal 8-15 [facility] Comment on above: Order Comment: Speci men Type: BLOOD SPECIMENOrdering Facility: [facility] Address: [address] [place] [address] Performed By: #### 3 024-7, 3051-0, 86925-9, 3016-3 ####[facility] LABCLIA [id number] [address] [address] [place] AST [Catalytic activity/Vol] 23 U/L Normal 13-[address] [facility] Comment on above: Order Comment: Speci men Type: BLOOD SPECIMENOrdering Facility: [facility] Address: [address] [place] [address] Performed By: #### 3 024-7, 3051-0, 00396-9, 3016-3 ####[facility] LABCLIA [id number] [place] [address] [place] Bilirubin [Mass/Vol] 0.2 mg/dL Normal 0.2-1.3 [facility] Comment on above: Order Comment: Speci men Type: BLOOD SPECIMENOrdering Facility: [facility] Address: [address] [place] [address] Performed By: #### 3 024-7, 3051-0, 56032-8, 3016-3 ####[facility] LABCLIA [id number] [place] [address] [place] Calcium [Mass/Vol] 9.1 mg/dL Normal 8.5-10.2 [facility] Comment on above: Order Comment: Speci men Type: BLOOD SPECIMENOrdering Facility: [facility] Address: [address] [place] [address] Performed By: #### 3 024-7, 3051-0, 99387-3, 3016-3 ####[facility] LABCLIA [id number] [place] [address] [place] Chloride [Moles/Vol] 100 mmol/L Normal 98-107 [facility] Comment on above: Order Comment: Speci men Type: BLOOD SPECIMENOrdering Facility: [facility] Address: [address] [place] [address] Performed By: #### 3 024-7, 3051-0, 20628-3, 3016-3 ####[facility] LABCLIA [id number] [place] [address] [place] CO2 [Moles/Vol] 27 mmol/L Normal 22-[address] [facility] Comment on above: Order Comment: Speci men Type: BLOOD SPECIMENOrdering Facility: [facility] Address: [address] [place] [address] Performed By: #### 3 024-7, 3051-0, 54384-8, 3016-3 ####[facility] LABCLIA [id number] [place] [address] [place] Creatinine [Mass/Vol] 1.42 mg/dL High 0.58-0.96 [facility] Comment on above: Order Comment: Speci men Type: BLOOD SPECIMENOrdering Facility: [facility] Address: [address] [place] [address] Performed By: #### 3 024-7, 3051-0, 15998-0, 6-3 ####[facility] LABIA [id number] [place] [address] [place] Creatinine and Glomerular filtration rate.predicted panel (S/P/Bld) 43 mL/min/1.73m??? Low >=[address] [facility] Comment on above: Order Comment: Katrina pereira Type: BLOOD SPECIMENOrdering Facility: [facility] Address: [address] [place] [address] Result Comment: Angelica mated Glomerular Filtration Rate (eGFR) is calculated using the 2020 CKD-EPI creatinine equation. This equation utilizes serum creatinine, sex, and age as parameters. The creatinine assay has traceable calibration to isotope dilution-mass spectrometry. Refer to KDIGO guidelines for clinical interpretation. In patients with unstable renal function, e.g. those with acute kidney injury, the eGFR may not accurately reflect actual GFR. Performed By: #### 3 024-7, 3051-0, 55254-3, 3016-3 ####[facility] LABCLIA [id number] [address] [address] [place] Glucose [Mass/Vol] 266 mg/dL High 74-99 [facility] Comment on above: Order Comment: Lovei men Type: BLOOD SPECIMENOrdering Facility: [facility] Address: [address] [place] [address] Result Comment: The [place] Diabetes Association (ADA) provides guidance for cutoff values for fasting glucose and random glucose. The ADA defines fasting as no caloric intake for at least 8 hours. Fasting plasma glucose results between 100 to 125 mg/dL indicate increased risk for diabetes (prediabetes). Fasting plasma glucose results greater than or equal to 126 mg/dL meet the criteria for diagnosis of diabetes. In the absence of unequivocal hyperglycemia, results should be confirmed by repeat testing. In a patient with classic symptoms of hyperglycemia or hyperglycemic crisis, random plasma glucose results greater than or equal to 200 mg/dL meet the criteria for diagnosis of diabetes. Reference: Standards of Medical Care in Diabetes 2016, [place] Diabetes Association. Diabetes Care. 2016.39(Suppl 1). Performed By: #### 3 024-7, 3051-0, 49085-9, 3016-3 ####[facility] LABIA [id number] [place] [address] [place] Potassium [Moles/Vol] 3.9 mmol/L Normal 3.7-5.1 [facility] Comment on above: Order Comment: Katrina pereira Type: BLOOD SPECIMENOrdering Facility: [facility] Address: [address] [place] [address] Performed By: #### 3 024-7, 3051-0, 53340-2, 3016-3 ####[facility] LABIA [id number] [place] [address] [place] Protein [Mass/Vol] 6.6 g/dL Normal 6.3-8.0 [facility] Comment on above: Order Comment: Lovei men Type: BLOOD SPECIMENOrdering Facility: [facility] Address: [address] [place] [address] Performed By: #### 3 024-7, 3051-0, 24910-5, 3016-3 ####[facility] LABCLIA [id number] [place] [id number] [place] Sodium [Moles/Vol] 140 mmol/L Normal 136-144 [facility] Comment on above: Order Comment: Katrina pereira Type: BLOOD SPECIMENOrdering Facility: [facility] Address: [address] [place] [address] Performed By: #### 3 024-7, 3051-0, 56800-3, 3016-3 ####[facility] LABCLIA [id number] [place] [address] [place] Urea nitrogen [Mass/Vol] 35 mg/dL High 7-[address] [facility] Comment on above: Order Comment: Katrina pereira Type: BLOOD SPECIMENOrdering Facility: [facility] Address: [address] [place] [address] Performed By: #### 3 024-7, 3051-0, 07397-6, 3016-3 ####[facility] LABIA [id number] [place] [address] [place] HbA1c (Bld)on 03-28-2025 Average glucose Estimated from glycated hemoglobin (Bld) [Mass/Vol] 240 mg/dL Normal [facility] Comment on above: Order Comment: Katrina pereira Type: BLOOD SPECIMENOrdering Facility: [facility] Address: [address] [place] [address] Result Comment: eAG: (Estimated average glucose) is a calculated value from HgbA1c and is service center representative of the average blood glucose level in the last 2-3 month period. Performed By: #### 5 5454-3 ####[facility] LABIA [id number] [place] [address] [place] HbA1c (Bld) [Mass fraction] 10.0 % High 4.3-5.[address] [facility] Comment on above: Order Comment: Katrina pereira Type: BLOOD SPECIMENOrdering Facility: [facility] Address: [address] [place] [address] Result Comment: [place] Diabetes Association guidelines indicate that patients with HgbA1c in the range 5.7-6.4% are at increased risk for development of diabetes, and intervention by lifestyle modification may be beneficial. HgbA1c greater or equal to 6.5% is considered diagnostic of diabetes. Performed By: #### 5 5454-3 ####[facility] LABCLIA [id number] [place] [address] [place] T3Free SerPl-mCncon 20 25 Free T3 [Mass/Vol] 1.5 pg/mL Low 2.3-4.1 [facility] Comment on above: Order Comment: Speci men Type: BLOOD SPECIMENOrdering Facility: [facility] Address: [address] [place] [address] Performed By: #### 3 024-7, 305-0, 63291-8, 6-3 ####[facility] LABIA [id number] [place] [address] [place] T4 Free SerPl-mCncon 2 025 Free T4 [Mass/Vol] 0.7 ng/dL Low 0.9-1.7 [facility] Comment on above: Order Comment: Speci men Type: BLOOD SPECIMENOrdering Facility: [facility] Address: [address] [place] [address] Performed By: #### 3 024-7, 305-0, 13437-1, 6-3 ####[facility] LABIA [id number] [address] [place] TSH SerPl-aCncon 03-28-2025 TSH Qn 60.600 m[IU]/L High 0.270-4.[address] [facility] Comment on above: Order Comment: Speci men Type: BLOOD SPECIMENOrdering Facility: [facility] Address: [address] [place] [address] Performed By: #### 3 024-7, 3051-0, 88177-9, 6-3 ####[facility] LABIA [id number] [place] [address] [facility] Kelvin 02-28-2025 CNPN Telephone (INTMWS) -------- SAMANTHA ROMERO ([id number]) 1965 F Date Time Provider Department 02/28/25 SARINA ADAMS INTKerriWS During your visit today, we recorded the following information about you: Sadie Perez 02/28/2025 3:54 PM Signed Samantha is a patient of Sarina Adams MD today she has questions due to [facility] is closing and she will need all medications resubmitted to [facility]. She stated there is a question on her Trulicity being cancelled per Pharmacy. She also is having trouble getting her insulin. Please call today. Patient has been identified by name and birthdate. Duration of symptoms: N/A Person calling: self Call patient at: on cell Was an appointment scheduled: No Closing statement: Results or non-symptom based questions: Thank you for calling [facility], your call will be returned within the next business day. Maylin Lima LPN 03/01/2025 2:53 PM Signed Called pt to review [facility] contact krista warner and pull any refills. If anything else is needed it can be reviewed at 03/05/25 appt. Allergies As of Date: 02/28/2025 Noted Allergy Reaction METFORMIN 09/10/2016 6 - Diarrhea Comments: Diarrhea every time takes, even with ER dose OXYCODONE 07/07/2021 8 - GI Upset PERCOCET (OXYCODONE-ACETAMINOPHEN )05/07/2014 8 - GI Upset Comments: and off balance Date Reviewed: 12/08/2024 Reviewed by: Mara Degroot LPN - Fully Assessed Reason for Visit: Medication Problem [65] Cmt: [facility] closing need all sent to [facility] [34] Prescriptions as of 03/01/2025 - meloxicam (MOBIC) 15 mg tablet Take 1 tablet by mouth once daily as needed for pain. With food. - omeprazole (PRILOSEC) 40 mg capsule Take 1 capsule by mouth once daily. - potassium chloride (K-TAB) 10 mEq tablet Take 1 tablet by mouth once daily. - metOLazone (ZAROXOLYN) 10 mg tablet Take 1 tablet by mouth once daily for 10 days. - dulaglutide (TRULICITY) 4.5 mg/0.5 mL pen injector Inject 4.5 mg subcutaneously one time a week. - gabapentin (NEURONTIN) 800 mg tablet Take 1 tablet by mouth three times a day for 90 days. Patient should start on February 08, 2025. - HYDROcodone-acetaminophe n (NORCO) 5-325 mg per tablet Take 1 tablet by mouth four times a day as needed for pain for up to 30 days. Patient should start on February 08, 2025. - blood sugar diagnostic (BLOOD GLUCOSE TEST) test strip Test blood sugar(s) 4 times daily. Dx: Type 2 DM - Controlled E11.9 Insulin: Yes - blood sugar diagnostic (FREESTYLE LITE STRIPS) test strip Test blood sugar(s) 4 times daily. Dx: Other DM Code E11.40 Insulin: Yes - gabapentin (NEURONTIN) 800 mg tablet Take 800 mg by mouth three times a day. - levothyroxine (SYNTHROID) 150 mcg tablet Take 2 tablets by mouth once daily. - insulin degludec (TRESIBA FLEXTOUCH U-200) 200 unit/mL (3 mL) injection Inject 80 Units subcutaneously daily at bedtime. - furosemide (LASIX) 40 mg tablet Take 1 tablet by mouth two times a day. - flash glucose sensor (FREESTYLE TAYLOR 14 DAY SENSOR) kit Use to check blood sugar 4 times daily. Please give 2 sensors per refill - gabapentin (NEURONTIN) 600 mg tablet Take 1 tablet by mouth three times a day for 90 days. - keTORolac (ACULAR) 0.5 % ophthalmic solution EVERY 6 HOURS - prednisoLONE acetate (PRED FORTE) 1 % ophthalmic suspension EVERY 6 HOURS - promethazine (PHENERGAN) 25 mg tablet Take 25 mg by mouth every 6 hours as needed. - empagliflozin (JARDIANCE) 25 mg tablet Take 1 tablet by mouth daily with breakfast. ON HOLD FOLLOWING HOSPITAL DISCHARGE 04/2024 - lisinopril 2.5 mg tablet Take 1 tablet by mouth once daily. ON HOLD FOLLOWING HOSPITAL DISCHARGE 04/2024 - insulin aspart U-100 (NOVOLOG) 100 unit/mL (3 mL) INJECT 20 UNITS SUBCUTANEOUSLY WITH MEALS THREE TIMES A DAY PLUS SLIDING SCALE #2 (add 2 units for every 50 points above 150 mg/dl) BASED ON PRE-MEAL BLOOD SUGAR (MAX: 96 UNITS PER DAY) - insulin degludec (TRESIBA FLEXTOUCH U-200) 200 unit/mL (3 mL) injection Inject 80 Units subcutaneously daily at bedtime. - dicyclomine (BENTYL) 10 mg capsule Take 1 capsule by mouth before meals and at bedtime. for abdominal pain - Fenofibrate (LOFIBRA) 160 mg tablet Take 1 tablet by mouth once daily. - rosuvastatin (CRESTOR) 10 mg tablet Take 1 tablet by mouth daily at bedtime. - hydrOXYzine HCl (ATARAX) 25 mg tablet Take 1-2 tablets by mouth at bedtime as needed. - Insulin [place], Disposable, (DROPLET PEN NEEDLE) 31 gauge x 3/16 use 1 PEN NEEDLE to inject MEDICATION subcutaneously four times a day - fluticasone (FLONASE) 50 mcg/actuation nasal spray Use 1-2 Sprays in each nostril once daily as needed. - PEG 400-propylene glycol (SYSTANE ULTRA) 0.4-0.3 % ophthalmic solution Use 1 Drop in both eyes four times daily. - Cholecalciferol, Vitamin D3, 125 mcg (5,000 unit) cap Ta (more content not included)... [facility] SAMANTHA ROMERO ([id number]) 1965 F Date Time Provider Department 12/11/24 SARINA ADAMS INTMWS During your visit today, we recorded the following information about you: Sadie Perez 12/11/2024 8:44 AM Signed Samantha is calling Sarina Adams MD today to request Insurance Authorization, she is out of medication. Disp Refills Start End insulin degludec (TRESIBA FLEXTOUCH U-200) 200 unit/mL (3 mL) injection 18 mL 5 12/08/2024 -- Sig: Inject 80 Units subcutaneously daily at bedtime. Sent to pharmacy as: insulin degludec (TRESIBA FLEXTOUCH U-200) 200 unit/mL (3 mL) injection Class: Normal Route: SUBCUTANEOUS Order: [id number] E-Prescribing Status: Receipt confirmed by pharmacy (12/08/2024 2:54 PM EST) Prior authorization: Closed - Other Per Pharmacy, they told patient this medication requires prior authorization, please call insurance. Patient is requesting a follow up call regarding this. Patient has been identified by name and birthdate. Duration of symptoms: N/A Person calling: self Call patient at: on cell [phone] (home) [phone] (cell) Was an appointment scheduled: No Closing statement: Prior Authorization Calls: Thank you for calling [facility], your call will be returned within the next 24 hours or next business day. Rosana Saez MA 12/11/2024 11:16 AM Signed Prior Authorization has been completed online at [employer] for [employer], will await response. FONTANEZ- [id number] Please keep encounter open until final decision has been received and documented from insurance company. Rosana Cross MA, MA 12/11/2024 11:35 AM Signed Approved till 12/2025 and patient was notified Rosana Ascencio MA Allergies As of Date: 12/11/2024 Noted Allergy Reaction METFORMIN 09/10/2016 6 - Diarrhea Comments: Diarrhea every time takes, even with ER dose OXYCODONE 07/07/2021 8 - GI Upset PERCOCET (OXYCODONE-ACETAMINOPHEN )05/07/2014 8 - GI Upset Comments: and off balance Date Reviewed: 12/08/2024 Reviewed by: Zane, Mara, H[employer]TING SALES LEADER - Fully Assessed Reason for Visit: Insurance Authorization [[id number]] Cmt: [facility] Visit Diagnosis: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) [E11.3319] Prescriptions as of 12/11/2024 - gabapentin (NEURONTIN) 800 mg tablet Take 800 mg by mouth three times a day. - HYDROcodone-acetaminophe n (NORCO) 5-325 mg per tablet Take 1 tablet by mouth four times a day as needed for pain for up to 30 days. Short term increase to 4 times daily as needed due to fall/rotator cuff injury Patient should start on December 10, 2024. - levothyroxine (SYNTHROID) 150 mcg tablet Take 2 tablets by mouth once daily. - insulin degludec (TRESIBA FLEXTOUCH U-200) 200 unit/mL (3 mL) injection Inject 80 Units subcutaneously daily at bedtime. - metOLazone (ZAROXOLYN) 10 mg tablet Take 1 tablet by mouth once daily for 10 days. - potassium chloride (K-TAB) 10 mEq tablet Take 1 tablet by mouth once daily. - furosemide (LASIX) 40 mg tablet Take 1 tablet by mouth two times a day. - gabapentin (NEURONTIN) 800 mg tablet Take 1 tablet by mouth three times a day for 90 days. - flash glucose sensor (FREESTYLE TAYLOR 14 DAY SENSOR) kit Use to check blood sugar 4 times daily. Please give 2 sensors per refill - gabapentin (NEURONTIN) 600 mg tablet Take 1 tablet by mouth three times a day for 90 days. - dulaglutide (TRULICITY) 4.5 mg/0.5 mL pen injector Inject 4.5 mg subcutaneously one time a week. - omeprazole (PRILOSEC) 40 mg capsule Take 1 capsule by mouth once daily. - meloxicam (MOBIC) 15 mg tablet Take 1 tablet by mouth once daily as needed for pain. With food. - keTORolac (ACULAR) 0.5 % ophthalmic solution EVERY 6 HOURS - prednisoLONE acetate (PRED FORTE) 1 % ophthalmic suspension EVERY 6 HOURS - promethazine (PHENERGAN) 25 mg tablet Take 25 mg by mouth every 6 hours as needed. - empagliflozin (JARDIANCE) 25 mg tablet Take 1 tablet by mouth daily with breakfast. ON HOLD FOLLOWING HOSPITAL DISCHARGE 04/2024 - lisinopril 2.5 mg tablet Take 1 tablet by mouth once daily. ON HOLD FOLLOWING HOSPITAL DISCHARGE 04/2024 - insulin aspart U-100 (NOVOLOG) 100 unit/mL (3 mL) INJECT 20 UNITS SUBCUTANEOUSLY WITH MEALS THREE TIMES A DAY PLUS SLIDING SCALE #2 (add 2 units for every 50 points above 150 mg/dl) BASED ON PRE-MEAL BLOOD SUGAR (MAX: 96 UNITS PER DAY) - insulin degludec (TRESIBA FLEXTOUCH U-200) 200 unit/mL (3 mL) injection Inject 80 Units subcutaneously daily at bedtime. - blood sugar diagnostic (FREESTYLE LITE STRIPS) test strip Test blood sugar(s) 4 times daily. Dx: Other DM Code E11.40 Insulin: Yes - dicyclomine (BENTYL) 10 mg capsule Take 1 capsule by mouth before meals and at bedtime. for abdominal pain - Feno (more content not included)... Normal [facility] CNOVon 12-08-2024 CNOV Office Visit (INTMWS ) -------- SAMANTHA ROMERO Kerri ([id number]) 1965 F Date Time Provider Department 12/08/24 2:00 PM DENISE ALVARADO INTMWS During your visit today, we recorded the following information about you: Pulse Blood pressure Weight 74/minute 115/67 113.9 kg Denise Alvarado APRN.[employer]ANCE PRACTICE MANAGER 12/08/2024 3:02 PM Signed Subjective ?Quick Links Last Note in Specialty Snapshot Patient ID: Samantha is a 59 year old female who presents for No chief complaint on file.. HPI Presents for recheck of leg swelling. Lst seen 11/28/[address] Villa. with uncontrolled diabetes and neuropathy, myasthenia gravis, essential hypertension hyperlipidemia reflux disease who presents today for bilateral leg swelling. Lab work completed and showed elevated TSH. Review of outside medications shows a refill of levothyroxine in April, the next refill was in November. She states she may have been out of medication for period of time. Notes the water pill given to her by Dr. Tony velazquez. She notes stable shortness of breath. ?Quick Review Review Full History Full Problem List Meds - metOLazone (ZAROXOLYN) 10 mg tablet potassium chloride (K-TAB) 10 mEq tablet furosemide (LASIX) 40 mg tablet levothyroxine (SYNTHROID) 150 mcg tablet HYDROcodone-acetaminophe n (NORCO) 5-325 mg per tablet gabapentin (NEURONTIN) 800 mg tablet flash glucose sensor (FREESTYLE TAYLOR 14 DAY SENSOR) kit gabapentin (NEURONTIN) 600 mg tablet dulaglutide (TRULICITY) 4.5 mg/0.5 mL pen injector omeprazole (PRILOSEC) 40 mg capsule meloxicam (MOBIC) 15 mg tablet keTORolac (ACULAR) 0.5 % ophthalmic solution prednisoLONE acetate (PRED FORTE) 1 % ophthalmic suspension promethazine (PHENERGAN) 25 mg tablet empagliflozin (JARDIANCE) 25 mg tablet lisinopril 2.5 mg tablet insulin aspart U-100 (NOVOLOG) 100 unit/mL (3 mL) insulin degludec (TRESIBA FLEXTOUCH U-200) 200 unit/mL (3 mL) injection blood sugar diagnostic (FREESTYLE LITE STRIPS) test strip dicyclomine (BENTYL) 10 mg capsule Fenofibrate (LOFIBRA) 160 mg tablet rosuvastatin (CRESTOR) 10 mg tablet hydrOXYzine HCl (ATARAX) 25 mg tablet Insulin [place], Disposable, (DROPLET PEN NEEDLE) 31 gauge x 3/16 fluticasone (FLONASE) 50 mcg/actuation nasal spray PEG 400-propylene glycol (SYSTANE ULTRA) 0.4-0.3 % ophthalmic solution Cholecalciferol, Vitamin D3, 125 mcg (5,000 unit) cap blood sugar diagnostic (BLOOD GLUCOSE TEST) test strip blood sugar diagnostic (BLOOD GLUCOSE TEST) test strip OXYGEN, HOME THERAPY, Blood-Glucose Meter monitoring kit Lancets lancets [employer] (BLOOD PRESSURE CUFF) flash glucose scanning reader (FREESTYLE TAYLOR 14 DAY READER) estradiol (ESTRACE) 0.01 % (0.1 mg/gram) vaginal cream --- PMH - Chronic hypoxemic respiratory failure (HCC) COVID-19 HTN (hypertension) Hyperlipidemia Hypothyroid Kidney stone on left side Myasthenia gravis (HCC) OA (osteoarthritis) of hip, bilateral Type II or unspecified type diabetes mellitus without mention of complication, uncontrolled : Objective ?Quick Links Labs Imaging Results Review ?? Avoid pulling in long tables of results. Comment on relevant results to support your medical decision making. : [facility] 04/27/2016 Physical Exam Vitals and nursing note reviewed. Constitutional: Appearance: Normal appearance. HENT: Head: Normocephalic. Eyes: Conjunctiva/sclera: Conjunctivae normal. Cardiovascular: Rate and Rhythm: Normal rate and regular rhythm. Heart sounds: Normal heart sounds. Pulmonary: Effort: Pulmonary effort is normal. Breath sounds: Normal breath sounds. Abdominal: General: Bowel sounds are normal. Palpations: Abdomen is soft. Musculoskeletal: Right lower leg: Edema (1+) present. Left lower leg: Edema (1+) present. Skin: General: Skin is warm and dry. Neurological: Mental Status: She is alert. Mental status is at baseline. Latest Ref [facility] 12/06/2024 WBC 3.70 - 11.00 k/uL 5.33 RBC 3.90 - 5.20 m/uL 4.00 Hemoglobin 11.5 - 15.5 g/dL 11.4 (L) Hematocrit 36.0 - 46.0 % 36.7 MCV 80.0 - 100.0 fL 91.8 MCH 26.0 - 34.0 pg 28.5 MCHC 30.5 - 36.0 g/dL 31.1 RDW-CV 11.5 - 15.0 % 14.3 Platelet Count 150 - 400 k/uL 133 (L) MPV 9.0 - 12.7 fL 11.9 Neut% % 63.9 Abs Neut (ANC) 1.45 - 7.50 k/uL 3.41 Lymph% % 22.3 Abs Lymph 1.00 - 4.00 k/uL 1.19 [place]% % 8.1 Abs [place] <0.87 k/uL 0.43 Eosin% % 4.5 Abs Eosin <0.46 k/uL 0.24 Baso% % 0.4 Abs Baso <0.11 k/uL <0.03 Immature Gran % % 0.8 IMMATURE GRANS (ABS) <0.10 k/uL 0.04 NRBC /100 WBC 0.0 Absolute nRBC <0.01 k/uL <0.01 DTYPE Auto Color Yellow Yellow Clarity Clear Clear Glucose, Urine Negative 3+ ! Bilirubin, Urine Negative Negative Ketones, Urine Negative Negative Specific [place], Ur 1.005 - 1.030 1.025 Hemoglobin/Blood,Ur Negative Trace ! pH, Urine <8.5 7.0 Protein, Urine Negative 3+ ! Urobilinogen 0. (more content not included)... Normal [facility] Prot 24h Ur-mRateon 12-09-19 25 Protein (24H U) [Mass/Time] 6.24 g/24 Hr High <0.[address] [facility] Comment on above: Order Comment: Speci men Type: URINE SPECIMENOrdering Facility: [facility] Address: [address] [place] [address] Result Comment: Adul t Proteinuria Categories: <0.15 g/24 hours is considered normal to mildly increased 0.15 - 0.50 g/24 hours is considered moderately increased >0.50 g/24 hours is considered severely increased KDIGO. (2013). KDIGO 2012 Clinical Practice Guideline for the Evaluation and Management of Chronic Kidney Disease. Official Journal of the International Society of Nephrology, 3(1), 1-150. Performed By: #### 2 889-4 ####[employer] LABORATORYCLIA [id number] [address] [place] Protein (24H U) [Mass/Time]o n 12-08-2024 PERIOD (HRS) 24 hr Normal [facility] Comment on above: Order Comment: Speci men Type: URINE SPECIMENOrdering Facility: [facility] Address: [address] [place] [address] Performed By: #### 2 889-4 ####[employer] LABORATORYCLIA [id number] [place] [id number] [place] Specimen volume (24H U) 2.[address] L [address] [facility] Comment on above: Order Comment: Speci men Type: URINE SPECIMENOrdering Facility: [facility] Address: [address] [place] [address] Performed By: #### 2 889-4 ####[employer] [facility] LABORATORYCLIA [id number] [place] [address] [place] CBC W Auto Differential pane l (Bld)on 12-06-2024 Basophils (Bld) [#/Vol] 10*3/uL Normal <0.11 [facility] Comment on above: Order Comment: Speci men Type: BLOOD SPECIMENOrdering Facility: [facility] Address: [address] [place] [address] Performed By: #### 5 7021-8 ####[facility] MILLWFLLIA [id number] [address] [place] Basophils/100 WBC (Bld) 0.4 % Normal C [facility] Comment on above: Order Comment: Speci men Type: BLOOD SPECIMENOrdering Facility: [facility] Address: [address] [place] [address] Performed By: #### 5 7021-8 ####[facility] HOSPITALKAYLEIGHA [id number] [address] STATES OF [facility] Differential cell count method Nom (Bld) Auto Normal [facility] Comment on above: Order Comment: Speci men Type: BLOOD SPECIMENOrdering Facility: [facility] Address: [address] [place] [address] Performed By: #### 5 7021-8 ####[facility] SYSTEMSA [id number] [place] [address] [place] Eosinophils (Bld) [#/Vol] 0.24 10*3/uL Normal <0.[address] [facility] Comment on above: Order Comment: Speci men Type: BLOOD SPECIMENOrdering Facility: [facility] Address: [address] [place] [address] Performed By: #### 5 7021-8 ####MAG[facility] MEMOR[facility] HOSPITALLIA [id number] [place] [address] [place] Eosinophils/100 WBC (Bld) 4.5 % Normal [facility] Comment on above: Order Comment: Speci men Type: BLOOD SPECIMENOrdering Facility: [facility] Address: [address] [place] [address] Performed By: #### 5 7021-8 ####[facility] ALEXI [id number] [place] [address] [place] Erythrocyte distribution width (RBC) [Ratio] 14.3 % Normal 11.5-15.[address] [facility] Comment on above: Order Comment: Speci men Type: BLOOD SPECIMENOrdering Facility: [facility] Address: [address] [place] [address] Performed By: #### 5 7021-8 ####[facility] MIKHAILANTON CHICOKAYLEIGHERICKA [id number] [place] [address] [place] Hematocrit (Bld) [Volume fraction] 36.7 % Normal 36.0-46.[address] [facility] Comment on above: Order Comment: Speci men Type: BLOOD SPECIMENOrdering Facility: [facility] Address: [address] [place] [address] Performed By: #### 5 7021-8 ####[facility] HOSPITALDELMYA [id number] [place] [address] [place] Hemoglobin (Bld) [Mass/Vol] 11.4 g/dL Low 11.5-15.[address] [facility] Comment on above: Order Comment: Speci men Type: BLOOD SPECIMENOrdering Facility: [facility] Address: [address] [place] [address] Performed By: #### 5 7021-8 ####[facility] HOSPITALKAYLEIGHLI [id number] [place] [address] [place] Immature granulocytes (Bld) [#/Vol] 0.04 10*3/uL Normal <0.[address] [facility] Comment on above: Order Comment: Speci men Type: BLOOD SPECIMENOrdering Facility: [facility] Address: [address] [place] [address] Performed By: #### 5 7021-8 ####[facility] HOSPITALNCLIA [id number] [place] [address] [place] Immature granulocytes/100 WBC (Bld) 0.8 % Normal [facility] Comment on above: Order Comment: Speci men Type: BLOOD SPECIMENOrdering Facility: [facility] Address: [address] [place] [address] Performed By: #### 5 7021-8 ####[facility] [id number] [place] [address] [place] Lymphocytes (Bld) [#/Vol] 1.19 10*3/uL Normal 1.00-4.[address] [facility] Comment on above: Order Comment: Speci men Type: BLOOD SPECIMENOrdering Facility: [facility] Address: [address] [place] [address] Performed By: #### 5 7021-8 ####[facility] [id number] [place] [address] [place] Lymphocytes/100 WBC (Bld) 22.3 % Normal [facility] Comment on above: Order Comment: Speci men Type: BLOOD SPECIMENOrdering Facility: [facility] Address: [address] [place] [address] Performed By: #### 5 7021-8 ####[facility] HOSPITALNCLI [id number] [place] [address] [place] MCH (RBC) [Entitic mass] 28.5 pg Normal 26.0-34.[address] [facility] Comment on above: Order Comment: Speci men Type: BLOOD SPECIMENOrdering Facility: [facility] Address: [address] [place] [address] Performed By: #### 5 7021-8 ####[facility] HOSPITALNCLIA [id number] [place] [address] [place] MCHC (RBC) [Mass/Vol] 31.1 g/dL Normal 30.5-36.0 [facility] Comment on above: Order Comment: Speci men Type: BLOOD SPECIMENOrdering Facility: [facility] Address: [address] [place] [address] Performed By: #### 5 7021-8 ####[facility] [id number] [place] [address] [place] MCV (RBC) [Entitic vol] 91.8 fL Normal 80.0-100.0 [facility] Comment on above: Order Comment: Speci men Type: BLOOD SPECIMENOrdering Facility: [facility] Address: [address] [place] [address] Performed By: #### 5 7021-8 ####[facility] [id number] [place] [address] [place] Monocytes (Bld) [#/Vol] 0.43 10*3/uL Normal <0.[address] [facility] Comment on above: Order Comment: Speci men Type: BLOOD SPECIMENOrdering Facility: [facility] Address: [address] [place] [address] Performed By: #### 5 7021-8 ####[facility] [id number] [place] [address] [place] Monocytes/100 WBC (Bld) 8.1 % Normal C [facility] Comment on above: Order Comment: Speci men Type: BLOOD SPECIMENOrdering Facility: [facility] Address: [address] [place] [address] Performed By: #### 5 7021-8 ####[facility] SYSTEMSA [id number] [place] [address] [place] Neutrophils (Bld) [#/Vol] 3.41 10*3/uL Normal 1.45-7.[address] [facility] Comment on above: Order Comment: Speci men Type: BLOOD SPECIMENOrdering Facility: [facility] Address: [address] [place] [address] Performed By: #### 5 7021-8 ####[facility] MIKHAILABIMBOLA [id number] [place] [address] [place] Neutrophils/100 WBC (Bld) 63.9 % Normal [facility] Comment on above: Order Comment: Speci men Type: BLOOD SPECIMENOrdering Facility: [facility] Address: [address] [place] [address] Performed By: #### 5 7021-8 ####[facility] HOSPITALKAYLEIGHJORDAN [facility] [id number] [place] [address] [place] Nucleated RBC (Bld) [#/Vol] 10*3/uL Normal <0.[address] [facility] Comment on above: Order Comment: Speci men Type: BLOOD SPECIMENOrdering Facility: [facility] Address: [address] [place] [address] Performed By: #### 5 7021-8 ####[facility] HOSPITALNCJuan [id number] [place] [address] [place] Nucleated RBC/100 WBC (Bld) [Ratio] 0.0 /100 WBC Normal [facility] Comment on above: Order Comment: Speci men Type: BLOOD SPECIMENOrdering Facility: [facility] Address: [address] [place] [address] Performed By: #### 5 7021-8 ####[facility] [id number] [place] [address] [place] Platelet mean volume (Bld) [Entitic vol] 11.9 fL Normal 9.0-12.[address] [facility] Comment on above: Order Comment: Speci men Type: BLOOD SPECIMENOrdering Facility: [facility] Address: [address] [place] [address] Performed By: #### 5 7021-8 ####[facility] HOSPITALWNCLIA [id number] [place] [address] [place] Platelets (Bld) [#/Vol] 133 10*3/uL Low 150-[address] [facility] Comment on above: Order Comment: Speci men Type: BLOOD SPECIMENOrdering Facility: [facility] Address: [address] [place] [address] Performed By: #### 5 7021-8 ####[facility] HOSPITALNCLIA [id number] [place] [address] [place] RBC (Bld) [#/Vol] 4.00 10*6/uL Normal 3.90-5.20 [facility] Comment on above: Order Comment: Speci men Type: BLOOD SPECIMENOrdering Facility: [facility] Address: [address] [place] [address] Performed By: #### 5 7021-8 ####[facility] HOSPITALNCLIA [id number] [place] [address] [place] WBC (Bld) [#/Vol] 5.33 10*3/uL Normal 3.70-11.00 [facility] Comment on above: Order Comment: Speci men Type: BLOOD SPECIMENOrdering Facility: [facility] Address: [address] [place] [address] Performed By: #### 5 7021-8 ####[facility] HOSPITALNCLIA [id number] [place] [address] [place] CNOVon 12-06-2024 CNOV Office Visit (PULMWS ) -------- SAMANTHA ROMERO ([id number]) 1965 F Date Time Provider Department 12/06/24 2:00 PM BROOKE BE During your visit today, we recorded the following information about you: Blood pressure 122/64 Brooke Be, PAJenniferC 12/06/2024 2:53 PM Signed Patient: Samantha Romero PCP: Sarina Adams MD CC: follow up HPI: Samantha Romero 59 year old female 58 year old female former smoker, 30 pack years (quitting 2013) with PMH significant for HTN, DM, hypothyroidism, HTN, myasthenia gravis, and history of Covid pna 07/2021. Required HFNC, dex/remdesivir/baricitin ib and 4L supplemental oxygen at discharge. Based on last oximetry with ambulation patient required 2L supplemental oxygen. Today, patient denies cough, sputum production, hemoptysis or wheezing. She has exertional dyspnea, stable. No fevers, chills or night sweats. Currently wearing 2L supplemental oxygen during the day and 4L at night. When she takes her oxygen off she feels chest pressure and tightness. PAST MEDICAL HISTORY Diagnosis Date Chronic hypoxemic respiratory failure (HCC) COVID-19 07/06/2021 HTN (hypertension) Hyperlipidemia 04/05/2014 Hypothyroid 04/19/2014 Kidney stone on left side 04/12/2014 Myasthenia gravis (HCC) OA (osteoarthritis) of hip, bilateral 04/04/2014 Type II or unspecified type diabetes mellitus without mention of complication, uncontrolled 04/05/2014 Allergies: Metformin Diarrhea Comment:Diarrhea every time takes, even with ER dose Oxycodone GI Upset Percocet [Oxycodone* GI Upset Comment:and off balance metOLazone (ZAROXOLYN) 10 mg tablet Take 1 tablet by mouth once daily for 10 days. potassium chloride (K-TAB) 10 mEq tablet Take 1 tablet by mouth once daily. furosemide (LASIX) 40 mg tablet Take 1 tablet by mouth two times a day. levothyroxine (SYNTHROID) 150 mcg tablet Take 2 tablets by mouth once daily. gabapentin (NEURONTIN) 800 mg tablet Take 1 tablet by mouth three times a day for 90 days. dulaglutide (TRULICITY) 4.5 mg/0.5 mL pen injector Inject 4.5 mg subcutaneously one time a week. omeprazole (PRILOSEC) 40 mg capsule Take 1 capsule by mouth once daily. empagliflozin (JARDIANCE) 25 mg tablet Take 1 tablet by mouth daily with breakfast. ON HOLD FOLLOWING HOSPITAL DISCHARGE 04/2024 lisinopril 2.5 mg tablet Take 1 tablet by mouth once daily. ON HOLD FOLLOWING HOSPITAL DISCHARGE 04/2024 insulin aspart U-100 (NOVOLOG) 100 unit/mL (3 mL) INJECT 20 UNITS SUBCUTANEOUSLY WITH MEALS THREE TIMES A DAY PLUS SLIDING SCALE #2 (add 2 units for every 50 points above 150 mg/dl) BASED ON PRE-MEAL BLOOD SUGAR (MAX: 96 UNITS PER DAY) insulin degludec (TRESIBA FLEXTOUCH U-200) 200 unit/mL (3 mL) injection Inject 80 Units subcutaneously daily at bedtime. Fenofibrate (LOFIBRA) 160 mg tablet Take 1 tablet by mouth once daily. Insulin [place], Disposable, (DROPLET PEN NEEDLE) 31 gauge x 3/16 use 1 PEN NEEDLE to inject MEDICATION subcutaneously four times a day fluticasone (FLONASE) 50 mcg/actuation nasal spray Use 1-2 Sprays in each nostril once daily as needed. HYDROcodone-acetaminophe n (NORCO) 5-325 mg per tablet Take 1 tablet by mouth four times a day as needed for pain for up to 30 days. Short term increase to 4 times daily as needed due to fall/rotator cuff injury Patient should start on November 10, 2024. flash glucose sensor (FREESTYLE TAYLOR 14 DAY SENSOR) kit Use to check blood sugar 4 times daily. Please give 2 sensors per refill gabapentin (NEURONTIN) 600 mg tablet Take 1 tablet by mouth three times a day for 90 days. (Patient taking differently: Take 800 mg by mouth three times a day.) meloxicam (MOBIC) 15 mg tablet Take 1 tablet by mouth once daily as needed for pain. With food. keTORolac (ACULAR) 0.5 % ophthalmic solution EVERY 6 HOURS prednisoLONE acetate (PRED FORTE) 1 % ophthalmic suspension EVERY 6 HOURS promethazine (PHENERGAN) 25 mg tablet Take 25 mg by mouth every 6 hours as needed. blood sugar diagnostic (FREESTYLE LITE STRIPS) test strip Test blood sugar(s) 4 times daily. Dx: Other DM Code E11.40 Insulin: Yes dicyclomine (BENTYL) 10 mg capsule Take 1 capsule by mouth before meals and at bedtime. for abdominal pain rosuvastatin (CRESTOR) 10 mg tablet Take 1 tablet by mouth daily at bedtime. hydrOXYzine HCl (ATARAX) 25 mg tablet Take 1-2 tablets by mouth at bedtime as needed. PEG 400-propylene glycol (SYSTANE ULTRA) 0.4-0.3 % ophthalmic solution Use 1 Drop in both eyes four times daily. Cholecalciferol, Vitamin D3, 125 mcg (5,000 unit) cap Take 1 capsule by mouth once daily. blood sugar diagnostic (BLOOD GLUCOSE TEST) test strip Test blood sugar(s) 4 times daily. Dx: Other DM Code E11.40 Insulin: Yes (Patient not taking: Reported on 11/28/2024) blood sugar diagnostic (BLOOD GLUCOSE TEST) test strip Test blood sugar(s) 4 t (more content not included)... Normal [facility] Comprehensive metabolic 2000 panelon 12-06-2024 Albumin [Mass/Vol] 3.5 g/dL Low 3.9-4.9 [facility] Comment on above: Order Comment: Speci men Type: BLOOD SPECIMENOrdering Facility: [facility] Address: [address] [place] [address] Performed By: #### 2 4323-8 ####[facility] [id number] [place] [address] [place] ALP [Catalytic activity/Vol] 76 U/L Normal 34-[address] [facility] Comment on above: Order Comment: Speci men Type: BLOOD SPECIMENOrdering Facility: [facility] Address: [address] [place] [address] Performed By: #### 2 4323-8 ####[facility] [id number] [place] [address] [place] ALT [Catalytic activity/Vol] 30 U/L Normal 7-[address] [facility] Comment on above: Order Comment: Speci men Type: BLOOD SPECIMENOrdering Facility: [facility] Address: [address] [place] [address] Performed By: #### 2 4323-8 ####[facility] EVETTE MILLTOWNCLIA [id number] [place] [address] [place] Anion gap [Moles/Vol] 6 mmol/L Low 8-15 [facility] Comment on above: Order Comment: Speci men Type: BLOOD SPECIMENOrdering Facility: [facility] Address: [address] [place] [address] Performed By: #### 2 4323-8 ####[facility] MILLWNCLIA [id number] [place] [address] [place] AST [Catalytic activity/Vol] 27 U/L Normal 13-[address] [facility] Comment on above: Order Comment: Speci men Type: BLOOD SPECIMENOrdering Facility: [facility] Address: [address] [place] [address] Performed By: #### 2 4323-8 ####[facility] HOSPITALWNCLIA [id number] [place] [address] [place] Bilirubin [Mass/Vol] mg/dL Low 0.2-1.3 [facility] Comment on above: Order Comment: Speci men Type: BLOOD SPECIMENOrdering Facility: [facility] Address: [address] [place] [address] Performed By: #### 2 4323-8 ####[facility] MILLWNCLIA [id number] [place] [address] [place] Calcium [Mass/Vol] 8.9 mg/dL Normal 8.5-10.2 [facility] Comment on above: Order Comment: Speci men Type: BLOOD SPECIMENOrdering Facility: [facility] Address: [address] [place] [address] Performed By: #### 2 4323-8 ####[facility] MILLWNCLIA [id number] [place] [address] [place] Chloride [Moles/Vol] 100 mmol/L Normal 98-107 [facility] Comment on above: Order Comment: Speci men Type: BLOOD SPECIMENOrdering Facility: [facility] Address: [address] [place] [address] Performed By: #### 2 4323-8 ####[facility]OSPITALNCJORDAN VALLEY [facility] [id number] [place] [address] [place] CO2 [Moles/Vol] 33 mmol/L High 22-[address] [facility] Comment on above: Order Comment: Speci men Type: BLOOD SPECIMENOrdering Facility: [facility] Address: [address] [place] [address] Performed By: #### 2 4323-8 ####[facility]OSPITALNCJORDAN [facility] [id number] [place] [address] [place] Creatinine [Mass/Vol] 1.39 mg/dL High 0.58-0.96 [facility] Comment on above: Order Comment: Speci men Type: BLOOD SPECIMENOrdering Facility: [facility] Address: [address] [place] [address] Performed By: #### 2 4323-8 ####[facility] HOSPITALNCLI [id number] [place] [address] [place] Creatinine and Glomerular filtration rate.predicted panel (S/P/Bld) 44 mL/min/1.73m??? Low >=[address] [facility] Comment on above: Order Comment: Speci men Type: BLOOD SPECIMENOrdering Facility: [facility] Address: [address] [place] [address] Result Comment: Angelica mated Glomerular Filtration Rate (eGFR) is calculated using the 2020 CKD-EPI creatinine equation. This equation utilizes serum creatinine, sex, and age as parameters. The creatinine assay has traceable calibration to isotope dilution-mass spectrometry. Refer to KDIGO guidelines for clinical interpretation. In patients with unstable renal function, e.g. those with acute kidney injury, the eGFR may not accurately reflect actual GFR. Performed By: #### 2 4323-8 ####[facility] MIKHAILWNCLIA [id number] [place] [address] [place] Glucose [Mass/Vol] 145 mg/dL High 74-99 [facility] Comment on above: Order Comment: Speci men Type: BLOOD SPECIMENOrdering Facility: [facility] Address: [address] [place] [address] Result Comment: The [place] Diabetes Association (ADA) provides guidance for cutoff values for fasting glucose and random glucose. The ADA defines fasting as no caloric intake for at least 8 hours. Fasting plasma glucose results between 100 to 125 mg/dL indicate increased risk for diabetes (prediabetes). Fasting plasma glucose results greater than or equal to 126 mg/dL meet the criteria for diagnosis of diabetes. In the absence of unequivocal hyperglycemia, results should be confirmed by repeat testing. In a patient with classic symptoms of hyperglycemia or hyperglycemic crisis, random plasma glucose results greater than or equal to 200 mg/dL meet the criteria for diagnosis of diabetes. Reference: Standards of Medical Care in Diabetes 2016, [place] Diabetes Association. Diabetes Care. 2016.39(Suppl 1). Performed By: #### 2 4323-8 ####[facility] HOSPITALNCLIA [id number] [place] [address] [place] Potassium [Moles/Vol] 3.9 mmol/L Normal 3.7-5.1 [facility] Comment on above: Order Comment: Speci men Type: BLOOD SPECIMENOrdering Facility: [facility] Address: [address] [place] [address] Performed By: #### 2 4323-8 ####[facility] HOSPITALNCLIA [id number] [place] [address] [place] Protein [Mass/Vol] 6.4 g/dL Normal 6.3-8.0 [facility] Comment on above: Order Comment: Speci men Type: BLOOD SPECIMENOrdering Facility: [facility] Address: [address] [place] [address] Performed By: #### 2 4323-8 ####[facility] HOSPITALNCLIA [id number] [place] [address] [place] Sodium [Moles/Vol] 139 mmol/L Normal 136-144 [facility] Comment on above: Order Comment: Speci men Type: BLOOD SPECIMENOrdering Facility: [facility] Address: [address] [place] [address] Performed By: #### 2 4323-8 ####[facility]ITALLIA [id number] [place] [address] [place] Urea nitrogen [Mass/Vol] 41 mg/dL High 7-[address] [facility] Comment on above: Order Comment: Speci men Type: BLOOD SPECIMENOrdering Facility: [facility] Address: [address] [place] [address] Performed By: #### 2 4323-8 ####[facility]ITALLIA [id number] [place] [address] [place] Lipid 1996 panelon 5 Cholesterol [Mass/Vol] 209 mg/dL High <200 [facility] Comment on above: Order Comment: Speci men Type: BLOOD SPECIMENOrdering Facility: [facility] Address: [address] [place] [address] Result Comment: <200 mg/dL, Desirable 200-239 mg/dL, Borderline high >239 mg/dL, High Performed By: #### 2 4331-1 ####[facility] HOSPITALNCLIA [id number] [place] [address] [place]#### 50683-2, 3016-3 ####[facility] LABORATORYCLIA [id number] [place] [address] [place] Cholesterol in HDL [Mass/Vol] 61 mg/dL Normal >[address] [facility] Comment on above: Order Comment: Speci men Type: BLOOD SPECIMENOrdering Facility: [facility] Address: [address] [place] [address] Result Comment: 40-5 9 mg/dL, Acceptable >59 mg/dL, High: Negative risk factor for coronary heart disease <40 mg/dL, Low: Positive risk factor for coronary heart disease Performed By: #### 2 4331-1 ####[facility] [id number] [address]#### [address]-7, 3016-3 ####[facility] LABORATORYCLIA [id number] [address] Cholesterol in LDL [Mass/Vol] 103 mg/dL High <[address] [facility] Comment on above: Order Comment: Katrina randall Type: BLOOD SPECIMENOrdering Facility: [facility] Address: [address] [place] [address] Result Comment: <100 mg/dL, Optimal 100-129 mg/dL, Near optimal/above optimal 130-159 mg/dL, Borderline high 160-189 mg/dL, High >189 mg/dL, Very high Secondary prevention optimal LDL Cholesterol levels are recommended to be < 70 mg/dL Performed By: #### 2 4331-1 ####[facility] [id number] [address]#### [address]-5, 3016-3 ####[facility] LABORATORYCLIA [id number] [address] Cholesterol in LDL/Cholesterol in HDL [Mass ratio] 1.69 {ratio} Normal <2.[address] [facility] Comment on above: Order Comment: Katrina pereira Type: BLOOD SPECIMENOrdering Facility: [facility] Address: [address] [place] [address] Result Comment: Refe chaoce: 1. National Cholesterol Education Program ATP III Guideline At-A-Glance Quick Desk Reference: National Heart, Lung, and Blood [place]. National Institutes of Health. 2001: NIH Publication No. 01-3305. 2. An International Atherosclerosis Society position paper: global recommendations for the management of dyslipidemia: executive summary, Atherosclerosis. 2014: 232(2):410-413. Performed By: #### 2 4331-1 ####[facility]ITALLIA [id number] [address] [place]#### 82047-2, 3016-3 ####[facility] LABORATORYCLIA [id number] [place], [place] [address] [place] [address] Cholesterol in VLDL [Mass/Vol] 45 mg/dL High <[address] [facility] Comment on above: Order Comment: Speci men Type: BLOOD SPECIMENOrdering Facility: [facility] Address: [address] [place] [address] Performed By: #### 2 4331-1 ####[facility] HOSPITALNCA [id number] [address]#### 26307-4, 3016-3 ####[facility] LABORATORYCLIA [id number] [address] [place] [facility] Cholesterol non HDL [Mass/Vol] 148 mg/dL High <[address] [facility] Comment on above: Order Comment: Lovei men Type: BLOOD SPECIMENOrdering Facility: [facility] Address: [address] [place] [address] Result Comment: <130 mg/dL, Optimal 130-159 mg/dL, Near optimal/above optimal 160-189 mg/dL, Borderline high 190-219 mg/dL, High >219 mg/dL, Very high Secondary prevention optimal non HDL Cholesterol levels are recommended to be <100 mg/dL Performed By: #### 2 4331-1 ####[facility]ITALLIA [id number] [address] [place]#### 91739-2, 3016-3 ####[facility] LABORATORYCLIA [id number] [place] [address] [facility] [place] Cholesterol.total/Stacy sterol in HDL [Mass ratio] 3.43 {ratio} Normal <5.[address] [facility] Comment on above: Order Comment: Speci men Type: BLOOD SPECIMENOrdering Facility: [facility] Address: [address] [place] [address] Performed By: #### 2 4331-1 ####[facility]ITALLIA [id number] [place] [address] [place]#### 56744-7, 3016-3 ####[facility] LABORATORYCLIA [id number] [address] [place] FASTING TIME 12 hrs Normal [facility] Comment on above: Order Comment: Speci men Type: BLOOD SPECIMENOrdering Facility: [facility] Address: [address] [place] [address] Performed By: #### 2 4331-1 ####[facility] SYSTEMSA [id number] [address]#### 62805-3, 3016-3 ####[employer] [facility] LABORATORYCLIA [id number] [address] [place] [facility] Triglyceride [Mass/Vol] 224 mg/dL High <150 [facility] Comment on above: Order Comment: Speci men Type: BLOOD SPECIMENOrdering Facility: [facility] Address: [address] [place] [address] Result Comment: <150 mg/dL, Normal 150-199 mg/dL, Borderline high 200-499 mg/dL, High >499 mg/dL, Very high Performed By: #### 2 4331-1 ####[facility]ITALLIA [id number] [place] [address] [place]#### 98222-9, 3016-3 ####[facility] LABORATORYCLIA [id number] [address] [place] NT-proBNP [facility] 12-06 Natriuretic peptide.B prohormone N-Terminal [Mass/Vol] <36 Normal <[address] [facility] Comment on above: Order Comment: Speci men Type: BLOOD SPECIMENOrdering Facility: [facility] Address: [address] [place] [address] Performed By: #### 2 4331-1 ####[facility] [id number] [place] [address] [place]#### 01714-0, 3016-3 ####[facility] LABORATORYCLIA [id number] [place] [address] [place] TSH SerPl-aCncon 12-06-2024 TSH Qn 116.000 m[IU]/L High 0.270-4.200 [facility] Comment on above: Order Comment: Speci men Type: BLOOD SPECIMENOrdering Facility: [facility] Address: [address] [place] [address] Performed By: #### 2 4331-1 ####[facility] [id number] [place] [address] [place]#### 94225-1, 3016-3 ####[facility] LABORATORYCLIA [id number] [place] [address] [place] Urinalysis complete panel (U )on 12-06-2024 Bacteria LM.HPF (Urine sed) [#/Area] Negative Normal Negative [facility] Comment on above: Order Comment: Speci men Type: URINE SPECIMENOrdering Facility: [facility] Address: [address] [place] [address] Performed By: #### 2 4356-8 ####[facility] LABCLIA [id number] [place] [address] [place] Bilirubin Ql (U) Negative Normal Negative [facility] Comment on above: Order Comment: Speci men Type: URINE SPECIMENOrdering Facility: [facility] Address: [address] [place] [id number] Performed By: #### 2 4356-8 ####[facility] LABCLIA [id number] [address] [address] [place] Clarity (Unsp spec) Clear Normal [facility] Comment on above: Order Comment: Speci men Type: URINE SPECIMENOrdering Facility: [facility] Address: [address] [place] [address] Performed By: #### 2 4356-8 ####[facility] LABCLIA [id number] [place] [id number] [place] Color (U) Yellow Normal Yellow [facility] Comment on above: Order Comment: Speci men Type: URINE SPECIMENOrdering Facility: [facility] Address: [address] [place] [address] Performed By: #### 2 4356-8 ####[facility] LABCLIA [id number] [address], [facility]95 [place] Epithelial cells LM.HPF (Urine sed) [#/Area] None Seen Normal [facility] Comment on above: Order Comment: Speci men Type: URINE SPECIMENOrdering Facility: [facility] Address: [address] [place] [address] Performed By: #### 2 4356-8 ####[facility] LABCLIA [id number] [address] [address] [place] Glucose Test strip (U) [Mass/Vol] 3+ Abnormal Negative [facility] Comment on above: Order Comment: Speci men Type: URINE SPECIMENOrdering Facility: [facility] Address: [address] [place] [address] Performed By: #### 2 4356-8 ####[facility] LABCLIA [id number] [address] [place] [address] [place] Hemoglobin Ql (U) Trace Abnormal Negative [facility] Comment on above: Order Comment: Speci men Type: URINE SPECIMENOrdering Facility: [facility] Address: [address] [place] [address] Performed By: #### 2 4356-8 ####[facility] LABCLIA [id number] [address], [place] [address] [place] Hyaline casts (Urine sed) [#/Area] 0 /[LPF] Normal 0 /LPF [facility] Comment on above: Order Comment: Speci men Type: URINE SPECIMENOrdering Facility: [facility] Address: [address] [place] [address] Performed By: #### 2 4356-8 ####[facility] LABCLIA [id number] [address], [place] [address] [place] Ketones Ql (U) Negative Normal Negative [facility] Comment on above: Order Comment: Speci men Type: URINE SPECIMENOrdering Facility: [facility] Address: [address] [place] [address] Performed By: #### 2 4356-8 ####[facility] LABCLIA [id number] [place] [address] [place] Leukocyte esterase Test strip Ql (U) Negative Normal Negative [facility] Comment on above: Order Comment: Speci men Type: URINE SPECIMENOrdering Facility: [facility] Address: [address] [place] [address] Performed By: #### 2 4356-8 ####[facility] LABCLIA [id number] [place] [id number] [place] Nitrite Ql (U) Negative Normal Negative [facility] Comment on above: Order Comment: Speci men Type: URINE SPECIMENOrdering Facility: [facility] Address: [address] [place] [address] Performed By: #### 2 4356-8 ####[facility] LABCLIA [id number] [place] [id number] [place] pH (U) 7.0 [pH] Normal <8.[address] [facility] Comment on above: Order Comment: Speci men Type: URINE SPECIMENOrdering Facility: [facility] Address: [address] [place] [address] Performed By: #### 2 4356-8 ####[facility] LABIA [id number] [place] [address] [place] Protein (U) [Mass/Vol] 3+ Abnormal Negative Cl [facility] Comment on above: Order Comment: Speci men Type: URINE SPECIMENOrdering Facility: [facility] Address: [address] [place] [address] Performed By: #### 2 4356-8 ####[facility] LABIA [id number] [place] [address] [place] RBC LM.HPF (Urine sed) [#/Area] 0-2 /HPF Normal 0-2 /HPF [facility] Comment on above: Order Comment: Speci men Type: URINE SPECIMENOrdering Facility: [facility] Address: [address] [place] [address] Performed By: #### 2 4356-8 ####[facility] HOSPITALIA [id number] [place] [address] [place] Specific gravity (U) [Rel density] 1.025 Normal 1.005-1.[address] [facility] Comment on above: Order Comment: Speci men Type: URINE SPECIMENOrdering Facility: [facility] Address: [address] [place] [address] Performed By: #### 2 4356-8 ####[facility] LABIA [id number] [place] [address] [place] Urobilinogen Ql (U) 0.2 EU/dL Normal 0.2-1.0 EU/dL [facility] Comment on above: Order Comment: Speci men Type: URINE SPECIMENOrdering Facility: [facility] Address: [address] [place], [place] [address] Performed By: #### 2 4356-8 ####[facility] LABCLIA [id number] [place] [address] [place] WBC LM.HPF (Urine sed) [#/Area] 6-10 /HPF Abnormal 0-5 /HPF [facility] Comment on above: Order Comment: Speci men Type: URINE SPECIMENOrdering Facility: [facility] Address: [address] [facility] [facility] [address] [address] Performed By: #### 2 4356-8 ####[facility] LABCLIA [id number] [address] [place] CNOVon 11-28-2024 CNOV Office Visit (INTMWS ) -------- SAMANTHA ROMERO ([id number]) 1965 F Date Time Provider Department 11/28/24 3:40 PM SALLY VILLA INTMWS During your visit today, we recorded the following information about you: Pulse Blood pressure Weight Height 75/minute 125/74 115.3 kg 1.626 m Chet Webster LPN 11/28/2024 6:01 PM Signed Asked patient to bring in all medication on next visit to review, patient voiced understanding Chet Webster LPN November 28, 2024 4:08 PM Sally Villa MD 11/28/2024 6:01 PM Signed Reason for Visit Samantha Romero is a 59 year oldfemale who presents here Patient presents with: ER F/U: [facility] October 2024 Health Maintenance Depression Screening Anxiety Screening Colorectal Cancer Screening Mammogram Screening Pneumococcal Vaccine: 50+(2 of 2 - PCV) Shingrix Vaccine(1 of 2) BP Controlled (<130/80) Diabetic Foot Exam Influenza Vaccine(1) Dilated Retinal Exam Cervical Cancer Screening HPI This is a 59-year-old woman with uncontrolled diabetes and neuropathy, myasthenia gravis, essential hypertension hyperlipidemia reflux disease who presents today for bilateral leg swelling. Complains today of swelling in the legs. She has gained more than 30 pounds of weight in the past 5 months. Is on lasix, which she notes she has been taking regularly, 40 mg in the morning. She does pass a lot of urine. No chest pain or shortness of breath. Echo done 5 months ago showed 60% EF with some concern for diastolic dysfunction. She denies orthopnea or PND. GFR 6 months ago was 60. She does have some hypoalbuminemia. No problem-specific Assessment AND Plan notes found for this encounter. PAST MEDICAL HISTORY Diagnosis Date Chronic hypoxemic respiratory failure (HCC) COVID-19 07/06/2021 HTN (hypertension) Hyperlipidemia 04/05/2014 Hypothyroid 04/19/2014 Kidney stone on left side 04/12/2014 Myasthenia gravis (HCC) OA (osteoarthritis) of hip, bilateral 04/04/2014 Type II or unspecified type diabetes mellitus without mention of complication, uncontrolled 04/05/2014 PAST SURGICAL HISTORY Procedure Laterality Date ESWL 04/25/14 kidney stones ESWL 05/16/14 kidney stones. PAST SURGICAL HISTORY OF c-sections x 2 PAST SURGICAL HISTORY OF appendectomy PAST SURGICAL HISTORY OF tubal ligation REMV CATARACT EXTRACAP,INSERT LENS Left 06/12/2021 Monofocal IOL 17.5 D XCAPSL CTRC RMVL INSJ IO LENS PROSTH W/O ECP Right 05/29/2021 FAMILY HISTORY Problem Relation Age of Onset Diabetes Mother Parkinson?s Disease Father Cervical Cancer Sister Diabetes Brother Cancer Maternal Grandmother Stomach CA Breast Cancer Maternal Aunt 50's Social History Tobacco Use Smoking status: Former Current packs/day: 0.00 Average packs/day: 1 pack/day for 30.0 years (30.0 ttl pk-yrs) Types: Cigarettes Start date: 11/04/1983 Quit date: 11/04/2013 Years since quittin.0 Smokeless tobacco: Never Vaping Use Vaping status: Never Used Substance Use Topics Alcohol use: Not Currently Comment: wine cool every once in a while Drug use: Not Currently Types: Marijuana Past medical history, appointments, medications, allergies reviewed. Pertinent Lab/Diagnostic Studies are reviewed and discussed today Current Outpatient Medications: levothyroxine (SYNTHROID) 150 mcg tablet HYDROcodone-acetaminophe n (NORCO) 5-325 mg per tablet gabapentin (NEURONTIN) 800 mg tablet flash glucose sensor (FREESTYLE TAYLOR 14 DAY SENSOR) kit furosemide (LASIX) 40 mg tablet gabapentin (NEURONTIN) 600 mg tablet dulaglutide (TRULICITY) 4.5 mg/0.5 mL pen injector omeprazole (PRILOSEC) 40 mg capsule meloxicam (MOBIC) 15 mg tablet keTORolac (ACULAR) 0.5 % ophthalmic solution prednisoLONE acetate (PRED FORTE) 1 % ophthalmic suspension promethazine (PHENERGAN) 25 mg tablet empagliflozin (JARDIANCE) 25 mg tablet lisinopril 2.5 mg tablet insulin aspart U-100 (NOVOLOG) 100 unit/mL (3 mL) insulin degludec (TRESIBA FLEXTOUCH U-200) 200 unit/mL (3 mL) injection blood sugar diagnostic (FREESTYLE LITE STRIPS) test strip dicyclomine (BENTYL) 10 mg capsule Fenofibrate (LOFIBRA) 160 mg tablet rosuvastatin (CRESTOR) 10 mg tablet hydrOXYzine HCl (ATARAX) 25 mg tablet Insulin [place], Disposable, (DROPLET PEN NEEDLE) 31 gauge x 3/16 fluticasone (FLONASE) 50 mcg/actuation nasal spray PEG 400-propylene glycol (SYSTANE ULTRA) 0.4-0.3 % ophthalmic solution Cholecalciferol, Vitamin D3, 125 mcg (5,000 unit) cap blood sugar diagnostic (BLOOD GLUCOSE TEST) test strip blood sugar diagnostic (BLOOD GLUCOSE TEST) test strip OXYGEN, HOME THERAPY, Blood-Glucose Meter monitoring kit Lancets lancets [employer] (BLOOD PRESSURE CUFF) flash glucose scanning reader (FREESTYLE TAYLOR 14 DAY READER) estradiol (ESTRACE) 0.01 % (0.1 mg/gram) vaginal cream Review of Systems CONSTITUTIONAL: No f (more content not included)... Normal [facility] Kelvin 11-20-2024 SUNDAR Telephone (INTMWS) -------- SAMANTHA ROMERO Kerri ([id number]) 1965 F Date Time Provider Department 11/20/24 SARINA ADAMS INTMWS During your visit today, we recorded the following information about you: David Sanders LPN 11/20/2024 3:43 PM Signed Pt scheduled for hospital follow up with N on 11/28/24. Please assist pt with rescheduling hospital follow up with PCP, member of PCP team or provider in INTM. In addition, please ask what hospital pt was in and when they were discharged? GARIMA Kaminski Stephanie 11/20/2024 3:56 PM Signed Spoke with patient and scheduled with INTM provider as directed. Iraida Zuleta Allergies As of Date: 11/20/2024 Noted Allergy Reaction METFORMIN 09/10/2016 6 - Diarrhea Comments: Diarrhea every time takes, even with ER dose OXYCODONE 07/07/2021 8 - GI Upset PERCOCET (OXYCODONE-ACETAMINOPHEN )05/07/2014 8 - GI Upset Comments: and off balance Date Reviewed: 10/16/2024 Reviewed by: Ramesh Brewster MD - Fully Assessed Reason for Visit: Appointment [186] Prescriptions as of 11/20/2024 - levothyroxine (SYNTHROID) 150 mcg tablet Take 2 tablets by mouth once daily. - HYDROcodone-acetaminophe n (NORCO) 5-325 mg per tablet Take 1 tablet by mouth four times a day as needed for pain for up to 30 days. Short term increase to 4 times daily as needed due to fall/rotator cuff injury Patient should start on November 10, 2024. - gabapentin (NEURONTIN) 800 mg tablet Take 1 tablet by mouth three times a day for 90 days. - flash glucose sensor (FREESTYLE TAYLOR 14 DAY SENSOR) kit Use to check blood sugar 4 times daily. Please give 2 sensors per refill - furosemide (LASIX) 40 mg tablet Take 1 tablet by mouth once daily as needed (for swelling). - gabapentin (NEURONTIN) 600 mg tablet Take 1 tablet by mouth three times a day for 90 days. - dulaglutide (TRULICITY) 4.5 mg/0.5 mL pen injector Inject 4.5 mg subcutaneously one time a week. - omeprazole (PRILOSEC) 40 mg capsule Take 1 capsule by mouth once daily. - meloxicam (MOBIC) 15 mg tablet Take 1 tablet by mouth once daily as needed for pain. With food. - keTORolac (ACULAR) 0.5 % ophthalmic solution EVERY 6 HOURS - prednisoLONE acetate (PRED FORTE) 1 % ophthalmic suspension EVERY 6 HOURS - promethazine (PHENERGAN) 25 mg tablet Take 25 mg by mouth every 6 hours as needed. - empagliflozin (JARDIANCE) 25 mg tablet Take 1 tablet by mouth daily with breakfast. ON HOLD FOLLOWING HOSPITAL DISCHARGE 04/2024 - lisinopril 2.5 mg tablet Take 1 tablet by mouth once daily. ON HOLD FOLLOWING HOSPITAL DISCHARGE 04/2024 - insulin aspart U-100 (NOVOLOG) 100 unit/mL (3 mL) INJECT 20 UNITS SUBCUTANEOUSLY WITH MEALS THREE TIMES A DAY PLUS SLIDING SCALE #2 (add 2 units for every 50 points above 150 mg/dl) BASED ON PRE-MEAL BLOOD SUGAR (MAX: 96 UNITS PER DAY) - insulin degludec (TRESIBA FLEXTOUCH U-200) 200 unit/mL (3 mL) injection Inject 80 Units subcutaneously daily at bedtime. - blood sugar diagnostic (FREESTYLE LITE STRIPS) test strip Test blood sugar(s) 4 times daily. Dx: Other DM Code E11.40 Insulin: Yes - dicyclomine (BENTYL) 10 mg capsule Take 1 capsule by mouth before meals and at bedtime. for abdominal pain - Fenofibrate (LOFIBRA) 160 mg tablet Take 1 tablet by mouth once daily. - rosuvastatin (CRESTOR) 10 mg tablet Take 1 tablet by mouth daily at bedtime. - hydrOXYzine HCl (ATARAX) 25 mg tablet Take 1-2 tablets by mouth at bedtime as needed. - Insulin [place], Disposable, (DROPLET PEN NEEDLE) 31 gauge x 16 use 1 PEN NEEDLE to inject MEDICATION subcutaneously four times a day - fluticasone (FLONASE) 50 mcg/actuation nasal spray Use 1-2 Sprays in each nostril once daily as needed. - PEG 400-propylene glycol (SYSTANE ULTRA) 0.4-0.3 % ophthalmic solution Use 1 Drop in both eyes four times daily. - Cholecalciferol, Vitamin D3, 125 mcg (5,000 unit) cap Take 1 capsule by mouth once daily. - blood sugar diagnostic (BLOOD GLUCOSE TEST) test strip Test blood sugar(s) 4 times daily. Dx: Other DM Code E11.40 Insulin: Yes - blood sugar diagnostic (BLOOD GLUCOSE TEST) test strip Test blood sugar(s) 4 times daily. Dx: Type 2 DM - Controlled E11.9 Insulin: Yes - OXYGEN, HOME THERAPY, Inhale as instructed as directed. Uses at 2 l/m via nasal cannula during the day and 4 l/m at night - Blood-Glucose Meter monitoring kit Check sugars daily and as needed (Freestyle Lite is what she has had) - Lancets lancets Test blood sugar(s) 4 times daily. Dx: E11.9 Insulin: Yes - Miscellaneous Medical Supply (BLOOD PRESSURE CUFF) 1 Each as needed. Blood pressure Monitor and Cuff, use as directed. Dx: I10 Hypertension - flash glucose scanning reader (FREESTYLE TAYLOR 14 DAY READER) Use to check blood sugar 4 times daily - estradiol (ESTRACE) 0.01 % (0.1 mg/gram) vaginal cream Use 3 g vaginally two times a week. M (more content not included)... Normal [facility] Urine Cultureon 10-29-2024 URC Culture exhibits no growth. Normal [facility] Comment on above: Performed By: #### L 100.0100, L503.6005, L500.4050 #### [facility] Laboratory [address] [place], [address] 12 Lead EKGon 10-27-2024 12 Lead EKG [facility] Cardiovascular Services [address] [place] [address] 12 Lead EKG 10/27/24 1735 MR#: [id number] Acct: [id number] Name: SAMANTHA ROMERO Kerri Rep #: [id number] : 1965 59 From: Jewel Delacruz MD Attending Dr: Status: DEP ER Ordering Dr: Marianela Harvey DO Date: 10/27/24 Location: ED Sex: F C Admitted: Test Reason : Blood Pressure : */* mmHG Vent. Rate : 67 BPM Atrial Rate : 67 BPM P-R Int : 196 ms QRS Dur : 98 ms QT Int : 452 ms P-R-T Axes : 30 3 55 degrees QTcB Int : 477 ms Normal sinus rhythm Normal ECG Confirmed by MIQUEL DUNNE, LYLY ([id number]), editor school photograph JESSICA VILLA ([id number]) on 10/31/2024 6:06:59 AM Referred By: Confirmed By: LYLY DELACRUZ MD 10/31/24 0607 Date Jewel Delacruz MD CC: Dr. Marianela Harvey DO; Dr. Sarina Adams MD Signed Normal [facility] BNP,B-Type NATRIURETIC PEPTI Harvey 10-27-2024 Natriuretic peptide B (Bld) [Mass/Vol] 14.6 pg/mL Normal 0-100 [facility] Comment on above: Performed By: #### L 501.080 #### [facility] Laboratory [address] [place], [address] CBC W/Diff, Automatedon 10-05 Absolute Lymph 1.30 X10 3/uL Normal 0.83-4.51 [facility] Comment on above: Performed By: #### L 501.080 #### [facility] Laboratory [address] [place], [address] Absolute Neut 4.5 X10 3/uL Normal 2.0-7.7 [facility] Comment on above: Performed By: #### L 501.080 #### [facility] Laboratory [address] [place], [address] Basophils/100 WBC (Bld) 0.2 % Normal 0-1 [facility] Comment on above: Performed By: #### L 501.080 #### [facility] Laboratory [address] [place], [address] Eosinophils/100 WBC (Bld) 2.8 % Normal 0-5 [facility] Comment on above: Performed By: #### L 501.080 #### [facility] Laboratory [address], [address] Erythrocyte distribution width (RBC) [Ratio] 14.5 % Normal 11.6-14.6 [facility] Comment on above: Performed By: #### L 501.080 #### [facility] Laboratory [address] [place], [address] Hematocrit (Bld) [Volume fraction] 38.8 % Normal 37-47 [facility] Comment on above: Performed By: #### L 501.080 #### [facility] Laboratory [address] [place], [address] Hemoglobin (Bld) [Mass/Vol] 12.2 g/dL Normal 12.0-15.0 [facility] Comment on above: Performed By: #### L 501.080 #### [facility] Laboratory [address] [place], [address] IG% 0.300 Normal 0.0-0.9 [facility] Comment on above: Result Comment: IG% - Immature Granulocytes (promyelocytes, myelocytes and metamyelocytes) > 1% indicates that a LEFT SHIFT is Present. Performed By: #### L 501.080 #### [facility] Laboratory [address] [place], [address] Lymphocytes/100 WBC (Bld) 20.3 % Normal 19-41 [facility] Comment on above: Performed By: #### L 501.080 #### [facility] Laboratory [address] [place], [address] MCH (RBC) [Entitic mass] 28.2 pg Normal 27.0-32.0 [facility] Comment on above: Performed By: #### L 501.080 #### [facility] Laboratory [address] [place], [address] MCHC (RBC) [Mass/Vol] 31.4 g/dL Low 32-36 [facility] Comment on above: Performed By: #### L 501.080 #### [facility] Laboratory [address] [place], [address] MCV (RBC) [Entitic vol] 89.8 fL Normal 81-99 [facility] Comment on above: Performed By: #### L 501.080 #### [facility] Laboratory [address] [place], [address] Monocytes/100 WBC (Bld) 6.1 % Normal 0-10 [facility] Comment on above: Performed By: #### L 501.080 #### [facility] Laboratory [address] [place], [address] Neutrophils/100 WBC (Bld) 70.3 % High 47-70 [facility] Comment on above: Performed By: #### L 501.080 #### [facility] Laboratory [address] [place], [address] Nucleated RBC (Bld) [#/Vol] 0 10*3/uL Normal 0-5 [facility] Comment on above: Performed By: #### L 501.080 #### [facility] Laboratory [address] [place], [address] Platelet mean volume (Bld) [Entitic vol] 10.9 fL Normal 6.2-12.0 [facility] Comment on above: Performed By: #### L 501.080 #### [facility] Laboratory [address] [place], [address] Platelets (Bld) [#/Vol] 162 10*3/uL Normal 150-450 [facility] Comment on above: Performed By: #### L 501.080 #### [facility] Laboratory [address] [place], [address] RBC (Bld) [#/Vol] 4.32 10*6/uL Normal 4.2-5.4 [facility] Comment on above: Performed By: #### L 501.080 #### [facility] Laboratory [address] [place], [place], [id number] RDW SD 47.5 fl High 35.1-43.9 [facility] Comment on above: Performed By: #### L 501.080 #### [facility] Laboratory [address] [place], [address] WBC (Bld) [#/Vol] 6.4 10*3/uL Normal 4.4-11.0 [facility] Comment on above: Performed By: #### L 501.080 #### [facility] Laboratory [address] [place], [address] [facility] -------- SAMANTHA ROMERO ([id number]) 1965 F Date Time Provider Department 10/27/24 TIM MCGUIRE [facility] During your visit today, we recorded the following information about you: Tim Mcguire MD 10/27/2024 8:15 PM Signed Contacted by Dr. Harvey at [facility] ED for patient presenting with 2+ LE pitting edema to her hips and complaint of having harder time getting around, but not SOB. TSH found to be 79.8. Patient on 2L O2 at baseline and SpO2 95% with ambulation. No pleural or pericardial effusion. Patient has only been taking 200 mcg of synthroid instead of 300 mcg as prescribed. Discharging home with burst of Lasix and will increase synthroid. Will need early f/u next week with PCP team. Mara Degroot LPN 11/02/2024 4:11 PM Signed Patient was scheduled to be seen here for an appointment on Wednesday but we were unable to see her due to insurance. Encounter routed to [facility] to see if insurance has been worked out and if so have them schedule an appointment PCP team for hospital f/u. Sarina Adams MD 11/03/2024 7:09 PM Signed Below noted Make sure able to get insurance worked out so can be seen soon. Verify patient increased dose of levothyroxine to 300mcg. If too difficult to taking 1.5 pills, can change to taking two 150 mcg pills. Dispense report does not show that has filled her levothyroxine recently. Verify patient has pills. I pended the 150mcg pill RX so I can file it if wants to change to this. Kerri Abdi RN 11/04/2024 10:02 AM Signed Phoned patient and given provider's message below. 1) pt asking pcp to send the levothyroxine 150 mcg take 2 tabs daily to [facility]. 2) pt asking pcp to send gabapentin 600 mg rx to [facility] to take 4 x's day because she has taken it 4 x's day and the increased dose really helps with the numbness and tingling in her feet and hands. Pended. 3) pt asking pcp to send norco rx to [facility]. Pended. Sarina Adams MD 11/04/2024 11:16 AM Signed 1) Sent 2) Patient should not increase gabapentin dose on her own. She is close to max dose of medication. Would try 800mg three times daily instead which is same amount per 24 hours and see if that works maybe better. 3) Patient not due for hydrocodone till next week--okay to extend higher dose another 30 days then need to re-evaluate what is going on with shoulder. No early refills on this med. The following approved medication requests have been transmitted electronically. Requested Prescriptions Signed Prescriptions Disp Refills levothyroxine (SYNTHROID) 150 mcg tablet 60 tablet 5 Sig: Take 2 tablets by mouth once daily. Authorizing Provider: SARINA ADAMS HYDROcodone-acetaminophe n (NORCO) 5-325 mg per tablet 120 tablet 0 Sig: Take 1 tablet by mouth four times a day as needed for pain for up to 30 days. Short term increase to 4 times daily as needed due to fall/rotator cuff injury Patient should start on November 10, 2024. Authorizing Provider: SARINA ADAMS gabapentin (NEURONTIN) 800 mg tablet 90 tablet 2 Sig: Take 1 tablet by mouth three times a day for 90 days. Authorizing Provider: SARINA ADAMS MD Babulski, Amanda, RN 11/06/2024 12:28 PM Signed Called and left a detailed voicemail notifying patient of providers message. Clinic phone number was left in case patient had any questions. Alicja Robin RN Allergies As of Date: 10/27/2024 Noted Allergy Reaction METFORMIN 09/10/2016 6 - Diarrhea Comments: Diarrhea every time takes, even with ER dose OXYCODONE 07/07/2021 8 - GI Upset PERCOCET (OXYCODONE-ACETAMINOPHEN )05/07/2014 8 - GI Upset Comments: and off balance Date Reviewed: 10/16/2024 Reviewed by: Ramesh Brewster MD - Fully Assessed Reason for Visit: Patient Update [1234] Visit Diagnoses:Chronic midline low back pain, unspecified whether sciatica present [M54.50, G89.29] Chronic SI joint pain [M53.3, G89.29] Comment:tenderness noted Order(s):levothyroxine (SYNTHROID) 150 mcg tabletTake 2 tablets by mouth once daily.Disp: 60 tabletRfl: 5 [START ON 11/10/2024] HYDROcodone-acetaminophe n (NORCO) 5-325 mg per tabletTake 1 tablet by mouth four times a day as needed for pain for up to 30 days. Short term increase to 4 times daily as needed due to fall/rotator cuff injury Patient should start on November 10, 2024.Disp: 120 tabletRfl: 0 gabapentin (NEURONTIN) 800 mg tabletTake 1 tablet by mouth three times a day for 90 days.Disp: 90 tabletRfl: 2 Prescriptions as of 11/06/2024 - levothyroxine (SYNTHROID) 150 mcg tablet Take 2 tablets by mouth once daily. - HYDROcodone-acetaminophe n (NORCO) 5-325 mg per tablet Take 1 tablet by mouth four times a day as needed for pain for up to 30 days. Short term increase to 4 times daily as needed due to fall/rotator cuff injury Patient should start on November (more content not included)... Normal [facility] Chest PA and Lateralon 10-27 Chest PA and Lateral [facility] Imaging Services [address] [place], [place] [address] Chest PA and Lateral MR#: [id number] Acct: [id number] Name: SAMANTHA ROMERO Rep #: [id number] : 1965 F 59 From: Michael Morales MD PCP: Dr. Sarina Adams MD Status: REG ER Study: Chest PA and Lateral Date of Exam: 10/27/24 Exam# [id number] Ordering Dr: Marianela Harvey DO [id number] STUDY: X-RAY CHEST REASON FOR EXAM: Female, 59 years old. sob TECHNIQUE: PA and lateral COMPARISON: April 20, 2024 FINDINGS: The lungs are clear and expanded. Tiny calcified granuloma in right lower lobe There is no demonstrated pleural abnormality. Heart is enlarged.. Normal mediastinum. Small right calcified hilar node Normal visualized pulmonary arteries. Normal visualized aortic arch and descending thoracic aorta. Normal visualized thoracic spine. Normal visualized ribs, clavicles, and shoulders. There is no demonstrated abnormality of the visualized soft tissue structures of the upper abdomen. RAD/Chest PA and Lateral IMPRESSION: Cardiomegaly and old granulomatous disease. No acute disease. Electronically Signed: Michael Morales MD at 18:19 EST Reading Location ID and State: [facility] / [place] Tel , Service support , CC: Dr. Marianela Harvey DO; Dr. Sarina Adams MD [employer] Drafter: Signed Normal [facility] Comprehensive Metabolic Prof ilon 10-27-2024 Albumin [Mass/Vol] 2.8 g/dL Low 3.2-5.0 [facility] Comment on above: Order Comment: 'TROP ' Serial specimen #1, #2 or #3: 1 Performed By: #### L 501.080 #### [facility] Laboratory [address] [place], [address] Albumin/Globulin [Mass ratio] 0.7 {ratio} Low 0.9-2.4 [facility] Comment on above: Order Comment: 'TROP ' Serial specimen #1, #2 or #3: 1 Performed By: #### L 501.080 #### [facility] Laboratory [address] [place], [address] ALK P 60 U/L Normal 45-117 [facility] Comment on above: Order Comment: 'TROP ' Serial specimen #1, #2 or #3: 1 Performed By: #### L 501.080 #### [facility] Laboratory [address] [place], [address] ALT [Catalytic activity/Vol] 23 U/L Normal 13-56 [facility] Comment on above: Order Comment: 'TROP ' Serial specimen #1, #2 or #3: 1 Performed By: #### L 501.080 #### [facility] Laboratory [address] [place], [address] AST [Catalytic activity/Vol] 23 U/L Normal 15-37 [facility] Comment on above: Order Comment: 'TROP ' Serial specimen #1, #2 or #3: 1 Performed By: #### L 501.080 #### [facility] Laboratory [address] [place], [address] Bilirubin [Mass/Vol] 0.30 mg/dL Normal 0.20-1.00 [facility] Comment on above: Order Comment: 'TROP ' Serial specimen #1, #2 or #3: 1 Result Comment: For patients on eltrombopag therapy, use of Dimension Henry TBIL is not recommended. Performed By: #### L 501.080 #### [facility] Laboratory [address], [address] BUN/CRE 27.0 RATIO High 10-20 [facility] Comment on above: Order Comment: 'TROP ' Serial specimen #1, #2 or #3: 1 Performed By: #### L 501.080 #### [facility] Laboratory [address] [place], [address] CA,Total 9.2 mg/dL Normal 8.5-10.1 [facility] Comment on above: Order Comment: 'TROP ' Serial specimen #1, #2 or #3: 1 Performed By: #### L 501.080 #### [facility] Laboratory [address] [place], [address] Chloride [Moles/Vol] 110 mmol/L High 98-107 [facility] Comment on above: Order Comment: 'TROP ' Serial specimen #1, #2 or #3: 1 Performed By: #### L 501.080 #### [facility] Laboratory [address] [place], [address] CO2 [Moles/Vol] 30.0 mmol/L Normal 21.0-32.0 [facility] Comment on above: Order Comment: 'TROP ' Serial specimen #1, #2 or #3: 1 Performed By: #### L 501.080 #### [facility] Laboratory [address] [place], [address] Creatinine [Mass/Vol] 0.89 mg/dL Normal 0.55-1.02 [facility] Comment on above: Order Comment: 'TROP ' Serial specimen #1, #2 or #3: 1 Result Comment: The validity of the calculated GFR GFRAA in patients over 70 years has not been determined. Clinical correlation is essential. Performed By: #### L 501.080 #### [facility] Laboratory [address] [place], [address] ECRCL 82.86 ml/min Normal [facility] Comment on above: Order Comment: 'TROP ' Serial specimen #1, #2 or #3: 1 Performed By: #### L 501.080 #### [facility] Laboratory [address] [place], [address] EST GFR - AA 84 mL/min Normal >60 [facility] Comment on above: Order Comment: 'TROP ' Serial specimen #1, #2 or #3: 1 Result Comment: Afri can [place] GFR Calc Performed By: #### L 501.080 #### [facility] Laboratory [address] [place], [address] GAP 5 Normal 5-15 [facility] Comment on above: Order Comment: 'TROP ' Serial specimen #1, #2 or #3: 1 Performed By: #### L 501.080 #### [facility] Laboratory [address] [place], [address] GFR/1.73 sq M.predicted among non-blacks MDRD (S/P/Bld) [Vol rate/Area] 69 mL/min/{1.73_m2} Normal >60 [facility] Comment on above: Order Comment: 'TROP ' Serial specimen #1, #2 or #3: 1 Result Comment: Non- GFR Calc Performed By: #### L 501.080 #### [facility] Laboratory [address] [place], [address] Globulin (S) [Mass/Vol] 4.1 g/dL Normal 2.2-4.2 [facility] Comment on above: Order Comment: 'TROP ' Serial specimen #1, #2 or #3: 1 Performed By: #### L 501.080 #### [facility] [address] [place], [address] Glucose [Mass/Vol] 104 mg/dL Normal 74-106 [facility] Comment on above: Order Comment: 'TROP ' Serial specimen #1, #2 or #3: 1 Result Comment: Fast ing Glucose result from 100 to 125 mg/dL suggests IMPAIRED HOMEOSTASIS per A.D.A. criteria. Performed By: #### L 501.080 #### [facility] Laboratory [address] [place], [address] Potassium [Moles/Vol] 3.7 mmol/L Normal 3.5-5.1 [facility] Comment on above: Order Comment: 'TROP ' Serial specimen #1, #2 or #3: 1 Performed By: #### L 501.080 #### [facility] Laboratory [address] [place], [address] Sodium [Moles/Vol] 144 mmol/L Normal 136-145 [facility] Comment on above: Order Comment: 'TROP ' Serial specimen #1, #2 or #3: 1 Performed By: #### L 501.080 #### [facility] Laboratory [address], [address] T PROT 6.9 g/dL Normal 6.4-8.2 [facility] Comment on above: Order Comment: 'TROP ' Serial specimen #1, #2 or #3: 1 Performed By: #### L 501.080 #### [facility] Laboratory [address], [address] Urea nitrogen [Mass/Vol] 24 mg/dL High 7-18 [facility] Comment on above: Order Comment: 'TROP ' Serial specimen #1, #2 or #3: 1 Performed By: #### L 501.080 #### [facility] Laboratory [address] [place], [address] Emergency Department Summary on 10-27-2024 Emergency Department Summary [facility] Medical Records Department [address] [place] [address] Emergency Department Summary 10/27/24 MR#: [id number] Acct: [id number] Name: SAMANTHA ROMERO Rep #: [id number] : 1965 59 From: Marianela Harvey DO PCP: Dr. Sarina Adams MD Status:DEP ER Location: ED HPI History of Present Illness Chief Complaint: Edema Informant: patient Narrative Narrative: Patient is a 59-year-old female with history of debility, diabetes mellitus, hypertension, GERD, chronic oxygen dependency on 2 L of oxygen after COVID infection and peripheral edema presenting with worsening peripheral edema. Patient states she has been having leg swelling for a while. She saw Dr. [facility]. She was told is not from her heart. She is on Lasix, hydrochlorothiazide and lisinopril at baseline. She notes that she is continue to have urine output with this. She does state that she has been gaining weight and on 10/16 she was 247 and today in the bed she weighs 251 lbs. she denies any recent medication changes. States been compliant with her medicine. She states her leg swelling is really worsened over the past few days to a week. She now feels that her swelling is up to her abdomen. She she is having hard time moving around because of all the extra weight is getting more short of breath. She denies any history of any liver disease. She is on any blood thinners. Does have some mild pressure in her upper abdomen/lower chest but denies any chest pain. Denies any new cough. No other complaints or concerns reported at this time. [facility] Medical History COVID History of hypothyroidism Type 2 diabetes mellitus treated with insulin Chronic respiratory failure with hypoxia Pericardial effusion Thrombocytopenia Anemia Elevated lipase Urinary retention Obesity Former tobacco use UTI (urinary tract infection) Kidney stones Migraines Hypothyroid Hypercholesteremia Hypertension Type 2 diabetes mellitus Home Medications ???Medication ???Instructions ???Recorded ???Last Taken ???Type fluticasone propionate 50 2 spray QHS nasal spray 05/24/15 03/24/21 History mcg/actuation nasal spray,suspension dulaglutide 1.5 mg/0.5 mL 1.5 mg subcut JOHNSON dm 03/25/21 03/23/21 History subcutaneous pen injector (Trulicity) estradiol 0.01% (0.1 mg/gram) 3 g vaginal .2X/WEEK health 03/25/21 Unknown History vaginal cream maintenance fenofibrate 160 mg tablet 160 mg PO DAILY cholesterol 03/25/21 03/24/21 History vitamin E 268 mg (400 unit) capsule 400 unit PO DAILY supplement 03/25/21 03/24/21 History dicyclomine 10 mg capsule 10 mg PO ACHS abdominal pain 07/06/21 Unknown History hydrochlorothiazide 12.5 mg capsule 12.5 mg PO DAILY diuretic 07/06/21 Unknown History insulin degludec 100 unit/mL (3 86 unit subcut QHS diabetes 07/06/21 Unknown History mL) subcutaneous pen (Tresiba FlexTouch U-100 insulin) ketorolac 0.5 % eye drops 1 drp ophthalmic (eye) Q6H eye 07/06/21 Unknown History lisinopril 2.5 mg tablet 2.5 mg PO DAILY blood pressure 07/06/21 Unknown History meloxicam 15 mg tablet 15 mg PO DAILY PRN Pain 07/06/21 Unknown History ondansetron 4 mg disintegrating 4 mg PO Q8H PRN nausea and 07/06/21 Unknown Rx tablet vomiting #10 tabs prednisolone acetate 1 % eye 1 drp ophthalmic (eye) Q6H eye 07/06/21 Unknown History drops,suspension rosuvastatin 10 mg tablet 10 mg PO DAILY cholesterol 07/06/21 Unknown History insulin lispro 100 unit/mL 8 unit (0.08 mL) subcut TIDCM #0 mL 07/21/21 Unknown Rx subcutaneous pen (Humalog KwikPen (U-100) Insulin) hydroxyzine HCl 25 mg tablet 25 - 50 mg PO QHS PRN PRN sleep 04/20/24 Unknown History promethazine 25 mg tablet 25 mg PO Q6H PRN PRN Nausea #10 04/28/24 Unknown Rx TABLETS cholecalciferol (vitamin D3) 125 125 mcg PO DAILY 05/03/24 Unknown History mcg (5,000 unit) capsule empagliflozin 25 mg tablet 25 mg PO DAILY 05/03/24 Unknown History (Jardiance) gabapentin 600 mg tablet 600 mg PO Q12H 05/03/24 Unknown History omeprazole 40 mg capsule,delayed 40 mg PO DAILY 05/03/24 Unknown History release tamsulosin 0.4 mg capsule 0.4 mg PO DAILY 05/03/24 Unknown History hydrocodone-acetaminophe n 5-325mg 1 tab PO TID PRN pain 5 days #15 05/04/24 Unknown Rx 5mg-325mg tabs cephalexin 500 mg capsule 500 mg PO Q12 #10 CAPSULES 10/27/24 Unknown Rx dulaglutide 4.5 mg/0.5 mL 4.5 mg subcut QWEEK 10/27/24 Unknown History subcutaneous pen injector (Trulicity) furosemide 40 mg tablet 40 mg PO DAILY swelling #10 tabs 10/27/24 Unknown Rx levothyroxine 150 mcg tablet 300 mcg (2 x 150 mcg) PO DAILY #60 10/27/24 Unknown Rx tabs Allergy/AdvReac Type Severity Reaction Status Date / Time metformin AdvReac Diarrhea Verif (more content not included)... Normal [facility] Free T3on 10-27-2024 Free T3 [Mass/Vol] 1.6 pg/mL Low 2.18-3.98 [facility] Comment on above: Performed By: #### L 100.0100, L503.6005, L500.4050 #### [facility] [address] [place], [address] L501.4020on 10-27-2024 TROPONIN-I HS 33 pg/mL Normal 3.0-54.0 [facility] Comment on above: Order Comment: 'TROP ' Serial specimen #1, #2 or #3: 1 Result Comment: Plea se Note: New Test Units and Gender Specific Reference Ranges. For more information see Policy Stat Procedure Henry High Sensitivity Troponin (TNIH) and attachments. Performed By: #### L 501.080 #### [facility] [address] [place], [address] T4 Free Directon 10-27-2024 T4 FREE DIRECT 0.57 ng/dL Low 0.76-1.46 [facility] Comment on above: Performed By: #### L 100.0100, L503.6005, L500.4050 #### [facility] [address] [place], [address] Thyroid Stim Hormone (TSH)on 10-27-2024 TSH 79.800 uIU/mL High 0.358-3.740 [facility] Comment on above: Order Comment: 'TROP ' Serial specimen #1, #2 or #3: 1 Performed By: #### L 501.080 #### [facility] [address] [place], [address] Urinalysis, Completeon 10-27 BACTERIA 1+ /hpf Normal None Seen [facility] Comment on above: Order Comment: CLEAN CATCH Performed By: #### L 100.0100, L503.6005, L500.4050 #### [facility] [address] [place], [address] EPI,SQUAMOUS 0-5 SEEN Normal 5-10 [facility] Comment on above: Order Comment: CLEAN CATCH Performed By: #### L 100.0100, L503.6005, L500.4050 #### [facility] [address] [place], [address] WBC 5-10 SEEN Normal 0-5 [facility] Comment on above: Order Comment: CLEAN CATCH Performed By: #### L 100.0100, L503.6005, L500.4050 #### [facility] [address] [place], [address] Mucus Ql (Urine sed) 0 SEEN Normal [facility] Comment on above: Order Comment: CLEAN CATCH Performed By: #### L 100.0100, L503.6005, L500.4050 #### [facility] [address] [place], [address] RBC 0 SEEN Normal 0-5 [facility] Comment on above: Order Comment: CLEAN CATCH Performed By: #### L 100.0100, L503.6005, L500.4050 #### [facility] [address] [place], [address] CNPNon 10-24-2024 [facility] Telephone (INTMWS) -------- SAMANTHA ROMERO ([id number]) 1965 F Date Time Provider Department 10/24/24 SARINA ADAMS INTMWS During your visit today, we recorded the following information about you: Kristen Bronson LPN 10/24/2024 11:29 AM Signed Pt called in to reports swelling in both legs still persisting. Pt calls and states the following: SWELLING, LEG/EDEMA ONSET: swelling all the time, but has increased the past week LOCATION: Swelling in both legs, toes small amount, top of both feet, left more than right up past thigh SEVERITY: moderate swelling - has to use walker to get around and unsteady at times due to the swelling REDNESS: top of feet red, redness with legs also small amount per pt PAIN: Legs are painful, pain scale 5 (takes Vicodin for back and this helps a little with the pain FEVER: no CAUSE: unknown was told to not eat salt MEDICAL HISTORY: no history of heart failure, kidney disease, liver failure or cancer RECURRENT SYMPTOMS: yes but nothing like it is now. OTHER SYMPTOMS: Legs warm to touch, SOB but this is not uncommon for pt. Pt has this when she gets over exerted. Pt saw Cariology on 10-16-24. This may happen off and on. getting abdominal discomfort on left and right side off and on. Takes Bentyl once a day and she may try increasing if needed. DENIES: chest pain, Pt scheduled for apt in the office on Wednesday10-27-24. Pt declined sooner apts today due to transportation. Pt reports she has transportation for Wednesday only. Please review and advise Routing tp Provider/team to review. GARIMA Hawkins Amelia, LPN 10/24/2024 11:42 AM Signed Patient is question on if she should increase lasix. Per Dr. Melendez note Lower extremity edema unaffected by Lasix could represent right heart failure. Will check a BNP. If elevated we will consider increasing her Lasix dose . Please provided results and course of action. GARIMA Simon Terri, [employer] P[employer]ER.[employer] ASS[employer]ANCE PRACTICE MANAGER 10/24/2024 4:34 PM Addendum Is this documenting referral to cardiology to follow up regarding recommendations? If not I recommend that. BNP10/16/2024 was within normal limits. Cardiology to NOT increase lasix at this time per communication today. Alicja Robin RN 10/25/2024 11:40 AM Signed Called and left a detailed voicemail notifying patient of providers message. Clinic phone number was left in case patient had any questions. Alicja Robin RN Allergies As of Date: 10/24/2024 Noted Allergy Reaction METFORMIN 09/10/2016 6 - Diarrhea Comments: Diarrhea every time takes, even with ER dose OXYCODONE 07/07/2021 8 - GI Upset PERCOCET (OXYCODONE-ACETAMINOPHEN )05/07/2014 8 - GI Upset Comments: and off balance Date Reviewed: 10/16/2024 Reviewed by: Ramesh Brewster MD - Fully Assessed Reason for Visit: swelling/future apt [Other] Prescriptions as of 10/25/2024 - flash glucose sensor (FREESTYLE TAYLOR 14 DAY SENSOR) kit Use to check blood sugar 4 times daily. Please give 2 sensors per refill - HYDROcodone-acetaminophe n (NORCO) 5-325 mg per tablet Take 1 tablet by mouth four times a day as needed for pain for up to 30 days. Short term increase to 4 times daily as needed due to fall/rotator cuff injury - furosemide (LASIX) 40 mg tablet Take 1 tablet by mouth once daily as needed (for swelling). - gabapentin (NEURONTIN) 600 mg tablet Take 1 tablet by mouth three times a day for 90 days. - dulaglutide (TRULICITY) 4.5 mg/0.5 mL pen injector Inject 4.5 mg subcutaneously one time a week. - omeprazole (PRILOSEC) 40 mg capsule Take 1 capsule by mouth once daily. - meloxicam (MOBIC) 15 mg tablet Take 1 tablet by mouth once daily as needed for pain. With food. - keTORolac (ACULAR) 0.5 % ophthalmic solution EVERY 6 HOURS - prednisoLONE acetate (PRED FORTE) 1 % ophthalmic suspension EVERY 6 HOURS - promethazine (PHENERGAN) 25 mg tablet Take 25 mg by mouth every 6 hours as needed. - empagliflozin (JARDIANCE) 25 mg tablet Take 1 tablet by mouth daily with breakfast. ON HOLD FOLLOWING HOSPITAL DISCHARGE 04/2024 - lisinopril 2.5 mg tablet Take 1 tablet by mouth once daily. ON HOLD FOLLOWING HOSPITAL DISCHARGE 04/2024 - insulin aspart U-100 (NOVOLOG) 100 unit/mL (3 mL) INJECT 20 UNITS SUBCUTANEOUSLY WITH MEALS THREE TIMES A DAY PLUS SLIDING SCALE #2 (add 2 units for every 50 points above 150 mg/dl) BASED ON PRE-MEAL BLOOD SUGAR (MAX: 96 UNITS PER DAY) - insulin degludec (TRESIBA FLEXTOUCH U-200) 200 unit/mL (3 mL) injection Inject 80 Units subcutaneously daily at bedtime. - levothyroxine (SYNTHROID) 200 mcg tablet Take 1.5 tablets by mouth daily before breakfast. - blood sugar diagnostic (FREESTYLE LITE STRIPS) test strip Test blood sugar(s) 4 times daily. Dx: Other DM Code E11.40 Insulin: Yes - dicyclomine (BENTYL) 10 mg capsule Take 1 capsule by mouth before meals and at bedtime. for (more content not included)... Normal [facility] ALBUMIN/CREATININE RATIO, UR INEon 10-16-2024 Albumin DL <= 20 mg/L (U) [Mass/Vol] 2982.4 mg/L Normal [facility] Comment on above: Order Comment: Speci men Type: URINE SPECIMENOrdering Facility: [facility] Address: [address] [place] [address] Performed By: #### U ACR ####[facility] LABCLIA [id number] [place] [address] [place] Albumin/Creatinine (U) [Mass ratio] 8546 mg/g High <[address] [facility] Comment on above: Order Comment: Speci men Type: URINE SPECIMENOrdering Facility: [facility] Address: [address] [place] [address] Result Comment: Not calculated Adult Male and Female Nephrotic Criteria: <30 mg/g is considered normal to mildly increased 30-300 mg/g is considered moderately increased >300 mg/g is considered severely increased KDIGO. (2013). KDIGO 2012 Clinical Practice Guideline for the Evaluation and Management of Chronic Kidney Disease. Official Journal of the International Society of Nephrology, 3(1), 1-150. Performed By: #### U ACR ####[facility] LABCLIA [id number] [place] [address] [place] Creatinine (U) [Mass/Vol] 34.9 mg/dL Normal 20.0-300.[address] [facility] Comment on above: Order Comment: Speci men Type: URINE SPECIMENOrdering Facility: [facility] Address: [address] [place] [address] Performed By: #### U ACR ####[facility] LABCLIA [id number] [address] OF [facility] CNOVon 10-16-2024 CNOV Office Visit (TON ) -------- SAMANTHA ROMERO ([id number]) 1965 F Date Time Provider Department 10/16/24 2:00 PM RAMESH BREWSTER During your visit today, we recorded the following information about you: Pulse Respiration Blood pressure Weight 72/minute 14/minute 146/70 112 kg Height 1.626 m Ramesh Brewster MD 10/16/2024 3:19 PM Signed [facility] Cardiology ([place] [address]) [address] [facility] [id number] OUTPATIENT VISIT DATE 10/16/2024 PRIMARY CARE PHYSICIAN: Sarina Adams [address] [place] [address] REFERRING PHYSICIAN: Dr. Adams HISTORY OF PRESENT ILLNESS: Ms. Romero is a 59 year old with extensive medical history including diabetes (insulin requiring), obesity, hypertension, dyslipidemia, chronic hypoxic respiratory failure requiring 2 L of nasal oxygen, and small to moderate chronic pericardial effusion who presents for routine follow-up. Patient suffered a mechanical fall was seen in the emergency room and subsequently diagnosed with a humeral fracture. She had a subsequent ER visit for urinary tract infection. She has had persistent lower extremity edema. She was started on Lasix with only minimal improvement. She has not had symptoms consistent with PND or orthopnea. She denies palpitations, lightheadedness, or syncope. PAST MEDICAL HISTORY Diagnosis Date Chronic hypoxemic respiratory failure (HCC) COVID-19 07/06/2021 HTN (hypertension) Hyperlipidemia 04/05/2014 Hypothyroid 04/19/2014 Kidney stone on left side 04/12/2014 Myasthenia gravis (HCC) OA (osteoarthritis) of hip, bilateral 04/04/2014 Type II or unspecified type diabetes mellitus without mention of complication, uncontrolled 04/05/2014 PAST SURGICAL HISTORY Procedure Laterality Date ESWL 04/25/14 kidney stones ESWL 05/16/14 kidney stones. PAST SURGICAL HISTORY OF c-sections x 2 PAST SURGICAL HISTORY OF appendectomy PAST SURGICAL HISTORY OF tubal ligation REMV CATARACT EXTRACAP,INSERT LENS Left 06/12/2021 Monofocal IOL 17.5 D XCAPSL CTRC RMVL INSJ IO LENS PROSTH W/O ECP Right 05/29/2021 SOCIAL HISTORY Social History Tobacco Use Smoking status: Former Current packs/day: 0.00 Average packs/day: 1 pack/day for 30.0 years (30.0 ttl pk-yrs) Types: Cigarettes Start date: 11/04/1983 Quit date: 11/04/2013 Years since quittin.9 Smokeless tobacco: Never Vaping Use Vaping status: Never Used Substance Use Topics Alcohol use: Not Currently Comment: wine cool every once in a while Drug use: Not Currently Types: Marijuana FAMILY HISTORY Problem Relation Age of Onset Diabetes Mother Parkinson?s Disease Father Cervical Cancer Sister Diabetes Brother Cancer Maternal Grandmother Stomach CA Breast Cancer Maternal Aunt 50's ALLERGIES: ALLERGIES Allergen Reactions Metformin Diarrhea Diarrhea every time takes, even with ER dose Oxycodone GI Upset Percocet [Oxycodone* GI Upset and off balance MEDICATIONS: HYDROcodone-acetaminophe n (NORCO) 5-325 mg per tablet Take 1 tablet by mouth four times a day as needed for pain for up to 30 days. Short term increase to 4 times daily as needed due to fall/rotator cuff injury furosemide (LASIX) 40 mg tablet Take 1 tablet by mouth once daily as needed (for swelling). gabapentin (NEURONTIN) 600 mg tablet Take 1 tablet by mouth three times a day for 90 days. dulaglutide (TRULICITY) 4.5 mg/0.5 mL pen injector Inject 4.5 mg subcutaneously one time a week. omeprazole (PRILOSEC) 40 mg capsule Take 1 capsule by mouth once daily. meloxicam (MOBIC) 15 mg tablet Take 1 tablet by mouth once daily as needed for pain. With food. keTORolac (ACULAR) 0.5 % ophthalmic solution EVERY 6 HOURS prednisoLONE acetate (PRED FORTE) 1 % ophthalmic suspension EVERY 6 HOURS promethazine (PHENERGAN) 25 mg tablet Take 25 mg by mouth every 6 hours as needed. empagliflozin (JARDIANCE) 25 mg tablet Take 1 tablet by mouth daily with breakfast. ON HOLD FOLLOWING HOSPITAL DISCHARGE 04/2024 lisinopril 2.5 mg tablet Take 1 tablet by mouth once daily. ON HOLD FOLLOWING HOSPITAL DISCHARGE 04/2024 insulin aspart U-100 (NOVOLOG) 100 unit/mL (3 mL) INJECT 20 UNITS SUBCUTANEOUSLY WITH MEALS THREE TIMES A DAY PLUS SLIDING SCALE #2 (add 2 units for every 50 points above 150 mg/dl) BASED ON PRE-MEAL BLOOD SUGAR (MAX: 96 UNITS PER DAY) insulin degludec (TRESIBA FLEXTOUCH U-200) 200 unit/mL (3 mL) injection Inject 80 Units subcutaneously daily at bedtime. levothyroxine (SYNTHROID) 200 mcg tablet Take 1.5 tablets by mouth daily before breakfast. blood sugar diagnostic (FREESTYLE LITE STRIPS) test strip Test blood sugar(s) 4 times daily. Dx: Other DM Code E11.40 Insulin: Yes flash glucose sensor (FREESTYLE (more content not included)... Normal [facility] Comprehensive metabolic 2000 panelon 10-16-2024 Albumin [Mass/Vol] 3.5 g/dL Low 3.9-4.9 [facility] Comment on above: Order Comment: Speci men Type: BLOOD SPECIMENOrdering Facility: [facility] Address: [address] [place] [address] Performed By: #### 2 4323-8 ####[facility] [place] MILLTOWNCLIA [id number] [place] [address] [place] ALP [Catalytic activity/Vol] 81 U/L Normal 34-[address] [facility] Comment on above: Order Comment: Speci men Type: BLOOD SPECIMENOrdering Facility: [facility] Address: [address] [place] [address] Performed By: #### 2 4323-8 ####[facility] MILLTOWNCLIA [id number] [place] [address] [place] ALT [Catalytic activity/Vol] 16 U/L Normal 7-[address] [facility] Comment on above: Order Comment: Speci men Type: BLOOD SPECIMENOrdering Facility: [facility] Address: [address] [place] [address] Performed By: #### 2 4323-8 ####[facility] MILLTOWNCLIA [id number] [place] [address] [place] Anion gap [Moles/Vol] 8 mmol/L Normal 8-15 [facility] Comment on above: Order Comment: Speci men Type: BLOOD SPECIMENOrdering Facility: [facility] Address: [address] [place] [address] Performed By: #### 2 4323-8 ####[facility] [place] MILLTOWNCLIA [id number] [place] [address] [place] AST [Catalytic activity/Vol] 18 U/L Normal 13-[address] [facility] Comment on above: Order Comment: Speci men Type: BLOOD SPECIMENOrdering Facility: [facility] Address: [address] [place] [address] Performed By: #### 2 4323-8 ####[facility] [place] MILLTOWNCLIA [id number] [place] [address] [place] Bilirubin [Mass/Vol] 0.2 mg/dL Normal 0.2-1.3 [facility] Comment on above: Order Comment: Speci men Type: BLOOD SPECIMENOrdering Facility: [facility] Address: [address] [place] [address] Performed By: #### 2 4323-8 ####[facility] MILLTOWNCLIA [id number] [place] [address] [place] Calcium [Mass/Vol] 9.7 mg/dL Normal 8.5-10.2 [facility] Comment on above: Order Comment: Speci men Type: BLOOD SPECIMENOrdering Facility: [facility] Address: [address] [place] [address] Performed By: #### 2 4323-8 ####[facility]ITAL[facility]CLIA [id number] [place] [address] [place] Chloride [Moles/Vol] 103 mmol/L Normal 98-107 [facility] Comment on above: Order Comment: Speci men Type: BLOOD SPECIMENOrdering Facility: [facility] Address: [address] [place] [address] Performed By: #### 2 4323-8 ####[facility] MILLWNCLIA [id number] [place] [address] [place] CO2 [Moles/Vol] 28 mmol/L Normal 22-[address] [facility] Comment on above: Order Comment: Speci men Type: BLOOD SPECIMENOrdering Facility: [facility] Address: [address] [place] [address] Performed By: #### 2 4323-8 ####[facility] MILLTOWNCLIA [id number] [place] [address] [place] Creatinine [Mass/Vol] 1.07 mg/dL High 0.58-0.96 [facility] Comment on above: Order Comment: Katrina pereira Type: BLOOD SPECIMENOrdering Facility: [facility] Address: [address] [place] [address] Performed By: #### 2 4323-8 ####[facility]NC[facility] [id number] [place] [address] [place] Creatinine and Glomerular filtration rate.predicted panel (S/P/Bld) 60 mL/min/1.73m??? Normal >=[address] [facility] Comment on above: Order Comment: Katrina pereira Type: BLOOD SPECIMENOrdering Facility: [facility] Address: [address] [place] [address] Result Comment: Angelica mated Glomerular Filtration Rate (eGFR) is calculated using the 2020 CKD-EPI creatinine equation. This equation utilizes serum creatinine, sex, and age as parameters. The creatinine assay has traceable calibration to isotope dilution-mass spectrometry. Refer to KDIGO guidelines for clinical interpretation. In patients with unstable renal function, e.g. those with acute kidney injury, the eGFR may not accurately reflect actual GFR. Performed By: #### 2 4323-8 ####[facility] [id number] [place] [address] [place] Glucose [Mass/Vol] 303 mg/dL High 74-99 [facility] Comment on above: Order Comment: Katrina pereira Type: BLOOD SPECIMENOrdering Facility: [facility] Address: [address] [place] [address] Result Comment: The [place] Diabetes Association (ADA) provides guidance for cutoff values for fasting glucose and random glucose. The ADA defines fasting as no caloric intake for at least 8 hours. Fasting plasma glucose results between 100 to 125 mg/dL indicate increased risk for diabetes (prediabetes). Fasting plasma glucose results greater than or equal to 126 mg/dL meet the criteria for diagnosis of diabetes. In the absence of unequivocal hyperglycemia, results should be confirmed by repeat testing. In a patient with classic symptoms of hyperglycemia or hyperglycemic crisis, random plasma glucose results greater than or equal to 200 mg/dL meet the criteria for diagnosis of diabetes. Reference: Standards of Medical Care in Diabetes 2016, [place] [employer] Association. Diabetes Care. 2016.39(Suppl 1). Performed By: #### 2 4323-8 ####[facility] MILLBALDEMARWKAYLEIGHLIA [id number] [place] [address] [place] Potassium [Moles/Vol] 4.3 mmol/L Normal 3.7-5.1 [facility] Comment on above: Order Comment: Speci men Type: BLOOD SPECIMENOrdering Facility: [facility] Address: [address] [place] [address] Performed By: #### 2 4323-8 ####[facility] MILLJENNIFFERLIA [id number] [place] [address] [place] Protein [Mass/Vol] 6.4 g/dL Normal 6.3-8.0 [facility] Comment on above: Order Comment: Speci men Type: BLOOD SPECIMENOrdering Facility: [facility] Address: [address] [place] [address] Performed By: #### 2 4323-8 ####[facility]HOLLYNCLIA [id number] [place] [address] [place] Sodium [Moles/Vol] 139 mmol/L Normal 136-144 [facility] Comment on above: Order Comment: Speci men Type: BLOOD SPECIMENOrdering Facility: [facility] Address: [address] [place] [address] Performed By: #### 2 4323-8 ####[facility] MILLBALDEMARWNCLIA [id number] [place] [address] [place] Urea nitrogen [Mass/Vol] 25 mg/dL High 7-[address] [facility] Comment on above: Order Comment: Speci men Type: BLOOD SPECIMENOrdering Facility: [facility] Address: [address] [place] [address] Performed By: #### 2 4323-8 ####[facility] [id number] [place] [address] [place] HbA1c (Bld)on 10-16-2024 Average glucose Estimated from glycated hemoglobin (Bld) [Mass/Vol] 217 mg/dL Normal [facility] Comment on above: Order Comment: Katrina pereira Type: BLOOD SPECIMENOrdering Facility: [facility] Address: [address] [place] [address] Result Comment: eAG: (Estimated average glucose) is a calculated value from HgbA1c and is service center representative of the average blood glucose level in the last 2-3 month period. Performed By: #### 5 5454-3 ####[facility] LABIA [id number] [place] [address] [place] HbA1c (Bld) [Mass fraction] 9.2 % High 4.3-5.[address] [facility] Comment on above: Order Comment: Katrina pereira Type: BLOOD SPECIMENOrdering Facility: [facility] Address: [address] [place] [address] Result Comment: Amer [place] Diabetes Association guidelines indicate that patients with HgbA1c in the range 5.7-6.4% are at increased risk for development of diabetes, and intervention by lifestyle modification may be beneficial. HgbA1c greater or equal to 6.5% is considered diagnostic of diabetes. Performed By: #### 5 5454-3 ####[facility] LABIA [id number] [address] [place] NT-proBNP [facility] 10-16 Natriuretic peptide.B prohormone N-Terminal [Mass/Vol] 39 pg/mL Normal <[address] [facility] Comment on above: Order Comment: Katrina pereira Type: BLOOD SPECIMENOrdering Facility: [facility] Address: [address] [place] [address] Performed By: #### 3 3762-6 ####[facility] LABIA [id number] [place] [address] [place] Urine Cultureon 09-21-2024 [facility] Escherichia coli [place] Count >100,000 Escherichia coli: REACTION Ampicillin Islt GARTH <=2 Ampicillin+Sulbac Islt GARTH <=2 S Cefepime Islt GARTH <=0.12 S cefTRIAXone Islt GARTH <=0.25 S Ciprofloxacin Islt GARTH <=0.06 S B-Lactamase Extended Susc Islt NEG Gentamicin Islt GARTH <=1 S levoFLOXacin Islt GARTH <=0.12 S Meropenem Islt GARTH <=0.25 S Nitrofurantoin Islt GARTH <=16 S Pip+Tazo Islt GARTH <=4 S TMP SMX Islt GARTH <=20 S Normal [facility] Comment on above: Performed By: #### L 501.080 #### [facility] Laboratory [address] [place], [place], [address] Abdomen/Pelvis W IV Cont ONL Yon 09-19-2024 Abdomen/Pelvis W IV Cont ONLY [facility] Imaging Services [address] [place], [place] [address] Abdomen/Pelvis W IV Cont ONLY MR#: [id number] Acct: [id number] Name: SAMANTHA ROMERO Rep #: [id number] : 1965 F 59 From: Mariano Javed DO PCP: Dr. Sarina Adams MD Status: REG ER Study: Abdomen/Pelvis W IV Cont ONLY Date of Exam: Exam# [id number] Ordering Dr: John Walker MD [id number] STUDY: CT ABDOMEN AND PELVIS WITH CONTRAST REASON FOR EXAM: Female, 59 years old. Left lower quadrant abdominal pain RADIATION DOSAGE (If Supplied By Facility): CTDIvol = ( 16.72 ) mGy, DLP = ( 1243.01 ) mGycm TECHNIQUE: Transaxial images were obtained from the dome of the diaphragm to the symphysis pubis without oral contrast. IV 100mL Isovue-370 was administered. Sagittal and coronal images were reconstructed. Individualized dose optimization techniques were used for this CT. COMPARISON: None. FINDINGS: The visualized lung bases are unremarkable. Right pulmonary hilar granulomatous calcifications. Pericardial effusion. There is a diffuse contour abnormality of the liver consistent with cirrhotic changes. Normal gallbladder and extrahepatic biliary system. Mildly enlarged spleen with granulomatous calcifications. Normal pancreas. Normal bilateral adrenal glands. Normal right kidney. Normal left kidney. Normal visualized stomach. Normal small intestine. Normal colon. The appendix is not visualized. Normal abdominal aorta. Normal inferior vena cava. Normal retroperitoneum. Focal gas in the urinary bladder with slight wall thickening. Normal abdominal wall. Normal osseous structures. CT/Abdomen/Pelvis W IV Cont ONLY IMPRESSION: Focal gas in the urinary bladder with slight wall thickening Cirrhosis with mild splenomegaly. Pericardial effusion. Electronically Signed: Mariano Javed DO at 18:16 EST Reading Location ID and State: [facility] / [place] Tel [phone], Service support , CC: Dr. Sarina Adams MD; Dr. John Walker MD [employer] Drafter: Signed Normal [facility] CBC W/Diff, Automatedon 09-03 Absolute Lymph 1.53 X10 3/uL Normal 0.83-4.51 [facility] Comment on above: Performed By: #### L 100.0100, L503.6005, L500.4050 #### [facility] [address] [place], [address] Absolute Neut 3.5 X10 3/uL Normal 2.0-7.7 [facility] Comment on above: Performed By: #### L 100.0100, L503.6005, L500.4050 #### [facility] [address] [place], [address] Basophils/100 WBC (Bld) 0.3 % Normal 0-1 [facility] Comment on above: Performed By: #### L 100.0100, L503.6005, L500.4050 #### [facility] [address] [place], [address] Eosinophils/100 WBC (Bld) 3.4 % Normal 0-5 [facility] Comment on above: Performed By: #### L 100.0100, L503.6005, L500.4050 #### [facility] [address] [place], [address] Erythrocyte distribution width (RBC) [Ratio] 13.9 % Normal 11.6-14.6 [facility] Comment on above: Performed By: #### L 100.0100, L503.6005, L500.4050 #### [facility] [address] [place], [address] Hematocrit (Bld) [Volume fraction] 37.3 % Normal 37-47 [facility] Comment on above: Performed By: #### L 100.0100, L503.6005, L500.4050 #### [facility] [address] [place], [address] Hemoglobin (Bld) [Mass/Vol] 11.9 g/dL Low 12.0-15.0 [facility] Comment on above: Performed By: #### L 100.0100, L503.6005, L500.4050 #### [facility] [address] [place], [address] IG% 0.300 Normal 0.0-0.9 [facility] Comment on above: Result Comment: IG% - Immature Granulocytes (promyelocytes, myelocytes and metamyelocytes) > 1% indicates that a LEFT SHIFT is Present. Performed By: #### L 100.0100, L503.6005, L500.4050 #### [facility] [address] [place], [address] Lymphocytes/100 WBC (Bld) 26.2 % Normal 19-41 [facility] Comment on above: Performed By: #### L 100.0100, L503.6005, L500.4050 #### [facility] [address] [place], [address] MCH (RBC) [Entitic mass] 28.8 pg Normal 27.0-32.0 [facility] Comment on above: Performed By: #### L 100.0100, L503.6005, L500.4050 #### [facility] [address] [place], [address] MCHC (RBC) [Mass/Vol] 31.9 g/dL Low 32-36 [facility] Comment on above: Performed By: #### L 100.0100, L503.6005, L500.4050 #### [facility] [address] [place], [address] MCV (RBC) [Entitic vol] 90.3 fL Normal 81-99 [facility] Comment on above: Performed By: #### L 100.0100, L503.6005, L500.4050 #### [facility] [address] [place], [address] Monocytes/100 WBC (Bld) 9.1 % Normal 0-10 [facility] Comment on above: Performed By: #### L 100.0100, L503.6005, L500.4050 #### [facility] [address] [place], [address] Neutrophils/100 WBC (Bld) 60.7 % Normal 47-70 [facility] Comment on above: Performed By: #### L 100.0100, L503.6005, L500.4050 #### [facility] [address] [place], [address] Nucleated RBC (Bld) [#/Vol] 0 10*3/uL Normal 0-5 [facility] Comment on above: Performed By: #### L 100.0100, L503.6005, L500.4050 #### [facility] [address] [place], [address] Platelet mean volume (Bld) [Entitic vol] 11.0 fL Normal 6.2-12.0 [facility] Comment on above: Performed By: #### L 100.0100, L503.6005, L500.4050 #### [facility] [address] [place], [address] Platelets (Bld) [#/Vol] 143 10*3/uL Low 150-450 [facility] Comment on above: Performed By: #### L 100.0100, L503.6005, L500.4050 #### [facility] [address] [place], [address] RBC (Bld) [#/Vol] 4.13 10*6/uL Low 4.2-5.4 [facility] Comment on above: Performed By: #### L 100.0100, L503.6005, L500.4050 #### [facility] [address] [place], [address] RDW SD 45.8 fl High 35.1-43.9 [facility] Comment on above: Performed By: #### L 100.0100, L503.6005, L500.4050 #### [facility] [address] [place], [address] WBC (Bld) [#/Vol] 5.8 10*3/uL Normal 4.4-11.0 [facility] Comment on above: Performed By: #### L 100.0100, L503.6005, L500.4050 #### [facility] [address] [place], [address] [facility] Albumin [Mass/Vol] 3.0 g/dL Low 3.2-5.0 [facility] Comment on above: Performed By: #### L 100.0100, L503.6005, L500.4050 #### [facility] [address] [place], [address] Albumin/Globulin [Mass ratio] 0.8 {ratio} Low 0.9-2.4 [facility] Comment on above: Performed By: #### L 100.0100, L503.6005, L500.4050 #### [facility] [address] [place], [address] ALK P 60 U/L Normal 45-117 [facility] Comment on above: Performed By: #### L 100.0100, L503.6005, L500.4050 #### [facility] [address] [place], [address] ALT [Catalytic activity/Vol] 23 U/L Normal 13-56 [facility] Comment on above: Performed By: #### L 100.0100, L503.6005, L500.4050 #### [facility] [address] [place], [address] AST [Catalytic activity/Vol] 19 U/L Normal 15-37 [facility] Comment on above: Performed By: #### L 100.0100, L503.6005, L500.4050 #### [facility] [address] [place], [address] Bilirubin [Mass/Vol] 0.30 mg/dL Normal 0.20-1.00 [facility] Comment on above: Result Comment: For patients on eltrombopag therapy, use of Dimension Henry TBIL is not recommended. Performed By: #### L 100.0100, L503.6005, L500.4050 #### [facility] [address] [place], [address] BUN/CRE 22.7 RATIO High 10-20 [facility] Comment on above: Performed By: #### L 100.0100, L503.6005, L500.4050 #### [facility] [address] [place], [address] CA,Total 8.7 mg/dL Normal 8.5-10.1 [facility] Comment on above: Performed By: #### L 100.0100, L503.6005, L500.4050 #### [facility] [address] [place], [address] Chloride [Moles/Vol] 108 mmol/L High 98-107 [facility] Comment on above: Performed By: #### L 100.0100, L503.6005, L500.4050 #### [facility] [address] [place], [address] CO2 [Moles/Vol] 32.0 mmol/L Normal 21.0-32.0 [facility] Comment on above: Performed By: #### L 100.0100, L503.6005, L500.4050 #### [facility] [address] [place], [address] Creatinine [Mass/Vol] 1.19 mg/dL High 0.55-1.02 [facility] Comment on above: Result Comment: The validity of the calculated GFR GFRAA in patients over 70 years has not been determined. Clinical correlation is essential. Performed By: #### L 100.0100, L503.6005, L500.4050 #### [facility] [address] [place], [address] ECRCL 59.95 ml/min Normal [facility] Comment on above: Performed By: #### L 100.0100, L503.6005, L500.4050 #### [facility] [address] [place], [address] EST GFR - AA 60 mL/min Normal >60 [facility] Comment on above: Result Comment: Afri can [place] GFR Calc Performed By: #### L 100.0100, L503.6005, L500.4050 #### [facility] [address] [place], [address] GAP 2 Low 5-15 [facility] Comment on above: Performed By: #### L 100.0100, L503.6005, L500.4050 #### [facility] [address] [place], [address] GFR/1.73 sq M.predicted among non-blacks MDRD (S/P/Bld) [Vol rate/Area] 49 mL/min/{1.73_m2} Low >60 [facility] Comment on above: Result Comment: Non- GFR Calc Performed By: #### L 100.0100, L503.6005, L500.4050 #### [facility] [address] [place], [address] Globulin (S) [Mass/Vol] 3.7 g/dL Normal 2.2-4.2 [facility] Comment on above: Performed By: #### L 100.0100, L503.6005, L500.4050 #### [facility] [address] [place], [address] Glucose [Mass/Vol] 161 mg/dL High 74-106 [facility] Comment on above: Result Comment: Fast ing Glucose result greater than or equal to 126 mg/dL suggests DIABETES MELLITUS per A.D.A. criteria. Performed By: #### L 100.0100, L503.6005, L500.4050 #### [facility] [address] [place], [address] Potassium [Moles/Vol] 3.9 mmol/L Normal 3.5-5.1 [facility] Comment on above: Performed By: #### L 100.0100, L503.6005, L500.4050 #### [facility] [address] [place], [address] Sodium [Moles/Vol] 142 mmol/L Normal 136-145 [facility] Comment on above: Performed By: #### L 100.0100, L503.6005, L500.4050 #### [facility] [address] [place], [address] T PROT 6.7 g/dL Normal 6.4-8.2 [facility] Comment on above: Performed By: #### L 100.0100, L503.6005, L500.4050 #### [facility] [address] [place], [address] Urea nitrogen [Mass/Vol] 27 mg/dL High 7-18 [facility] Comment on above: Performed By: #### L 100.0100, L503.6005, L500.4050 #### [facility] [address] [place], [address] Emergency Department Summary on 09-19-2024 Emergency Department Summary [facility] Medical Records Department [address] [place] [address] Emergency Department Summary 09/19/24 MR#: [id number] Acct: [id number] Name: SAMANTHA ROMERO Rep #: [id number] : 1965 59 From: John Walker MD PCP: Dr. Sarina Adams MD Status:REG ER Location: ED HPI History of Present Illness Chief Complaint: Abd Pain Detail of Chief Complaint: Patient localizes the pain to the suprapubic left lower quadrant Informant: patient Onset/Context/Timing Onset: Days (Onset 3 to 5 days ago.) Context: Sudden Onset Timing: Continuous Quality: Pain Location: Suprapubic left lower quadrant Current Severity: Mild Maximum Severity: Moderate Worsened by: Palpation Relieved by: Nothing Associated Symptoms Associated Symptoms: Intermittent nausea and vomiting and frequency Narrative Narrative: Patient is a 59-year-old woman. She has history of debility, insulin-dependent diabetes, hypothyroidism, hypertension, GERD. She presents with left lower quadrant abdominal pain. She denies diarrhea or constipation. Denies history of diverticulosis diverticulitis. She states she is never had a colonoscopy. She denies change in color, consistency or caliber of her stool. She does report frequency and question of some discomfort at the end of urination. She denies pneumaturia. She denies low back pain or flank pain. There is no history of trauma. She has not noted a rash. Prior similar symptoms: No Recent Illness/Hospitalization: No PFSH PFSH Medical History COVID History of hypothyroidism Type 2 diabetes mellitus treated with insulin Chronic respiratory failure with hypoxia Pericardial effusion Thrombocytopenia Anemia Elevated lipase Urinary retention Obesity Former tobacco use UTI (urinary tract infection) Kidney stones Migraines Hypothyroid Hypercholesteremia Hypertension Type 2 diabetes mellitus Home Medications ???Medication ???Instructions ???Recorded ???Last Taken ???Type fluticasone propionate 50 2 spray QHS nasal spray 05/24/15 03/24/21 History mcg/actuation nasal spray,suspension dulaglutide 1.5 mg/0.5 mL 1.5 mg subcut JOHNSON dm 03/25/21 03/23/21 History subcutaneous pen injector (Trulicity) estradiol 0.01% (0.1 mg/gram) 3 g vaginal .2X/WEEK health 03/25/21 Unknown History vaginal cream maintenance fenofibrate 160 mg tablet 160 mg PO DAILY cholesterol 03/25/21 03/24/21 History vitamin E 268 mg (400 unit) capsule 400 unit PO DAILY supplement 03/25/21 03/24/21 History dicyclomine 10 mg capsule 10 mg PO ACHS abdominal pain 07/06/21 Unknown History hydrochlorothiazide 12.5 mg capsule 12.5 mg PO DAILY diuretic 07/06/21 Unknown History insulin degludec 100 unit/mL (3 86 unit subcut QHS diabetes 07/06/21 Unknown History mL) subcutaneous pen (Tresiba FlexTouch U-100 insulin) ketorolac 0.5 % eye drops 1 drp ophthalmic (eye) Q6H eye 07/06/21 Unknown History lisinopril 2.5 mg tablet 2.5 mg PO DAILY blood pressure 07/06/21 Unknown History meloxicam 15 mg tablet 15 mg PO DAILY PRN Pain 07/06/21 Unknown History ondansetron 4 mg disintegrating 4 mg PO Q8H PRN nausea and 07/06/21 Unknown Rx tablet vomiting #10 tabs prednisolone acetate 1 % eye 1 drp ophthalmic (eye) Q6H eye 07/06/21 Unknown History drops,suspension rosuvastatin 10 mg tablet 10 mg PO DAILY cholesterol 07/06/21 Unknown History insulin lispro 100 unit/mL 8 unit (0.08 mL) subcut TIDCM #0 mL 07/21/21 Unknown Rx subcutaneous pen (Humalog KwikPen (U-100) Insulin) furosemide 40 mg tablet 40 mg PO DAILY PRN swelling 04/20/24 Unknown History hydroxyzine HCl 25 mg tablet 25 - 50 mg PO QHS PRN PRN sleep 04/20/24 Unknown History levothyroxine 150 mcg tablet 200 mcg PO DAILY 04/20/24 Unknown History promethazine 25 mg tablet 25 mg PO Q6H PRN PRN Nausea #10 04/28/24 Unknown Rx TABLETS cholecalciferol (vitamin D3) 125 125 mcg PO DAILY 05/03/24 Unknown History mcg (5,000 unit) capsule empagliflozin 25 mg tablet 25 mg PO DAILY 05/03/24 Unknown History (Jardiance) gabapentin 600 mg tablet 600 mg PO Q12H 05/03/24 Unknown History omeprazole 40 mg capsule,delayed 40 mg PO DAILY 05/03/24 Unknown History release tamsulosin 0.4 mg capsule 0.4 mg PO DAILY 05/03/24 Unknown History hydrocodone-acetaminophe n 5-325mg 1 tab PO TID PRN pain 5 days #15 05/04/24 Unknown Rx 5mg-325mg tabs cephalexin 500 mg capsule 500 mg PO Q6 #28 CAPSULES 09/19/24 Unknown Rx Allergy/AdvReac Type Severity Reaction Status Date / Time metformin AdvReac Diarrhea Verified 09/19/24 16:19 oxycodone (From Percocet) AdvReac upset Verified 09/19/24 16:19 stomach/off balance Family History Mother Diabetes Father Diabetes Surgical History (Reviewe (more content not included)... Normal [facility] Lactic Acidon 09-19-2024 Lactate [Moles/Vol] 0.8 mmol/L Normal 0.4-1.9 [facility] Comment on above: Order Comment: Y Performed By: #### L 100.0100, L503.6005, L500.4050 #### [facility] [place], [address] CNPNon 08-21-2024 [facility] Telephone (FAMPST) -------- SAMANTHA ROMERO ([id number]) 1965 F Date Time Provider Department 08/21/24 SARINA ADAMS During your visit today, we recorded the following information about you: Katherin Chowdhury 08/21/2024 2:53 PM Signed Samantha is calling Sarina Adams MD today to request an order be placed for [facility] urology for the following: Adult diapers (pull up) large Large pads Per patient these ship to patient house Patient has been identified by name and birthdate. Duration of symptoms: ongoing Person calling: self Call patient at: at home [phone] (home) [phone] (cell) Was an appointment scheduled: No Closing statement: Results or non-symptom based questions: Thank you for calling [facility], your call will be returned within the next business day. Katherin Rothman [facility] [place] Delaney LPN 08/22/2024 8:36 AM Signed REC'D COMPLETED AND FAXED BACK. Allergies As of Date: 08/21/2024 Noted Allergy Reaction METFORMIN 09/10/2016 6 - Diarrhea Comments: Diarrhea every time takes, even with ER dose OXYCODONE 07/07/2021 8 - GI Upset PERCOCET (OXYCODONE-ACETAMINOPHEN )05/07/2014 8 - GI Upset Comments: and off balance Date Reviewed: 06/26/2024 Reviewed by: Ale Mann MA - Fully Assessed Reason for Visit: Orders [681] Prescriptions as of 08/22/2024 - HYDROcodone-acetaminophe n (NORCO) 5-325 mg per tablet Take 1 tablet by mouth four times a day as needed for pain for up to 30 days. Short term increase to 4 times daily as needed due to fall/rotator cuff injury - gabapentin (NEURONTIN) 600 mg tablet Take 1 tablet by mouth three times a day for 90 days. - dulaglutide (TRULICITY) 4.5 mg/0.5 mL pen injector Inject 4.5 mg subcutaneously one time a week. - omeprazole (PRILOSEC) 40 mg capsule Take 1 capsule by mouth once daily. - meloxicam (MOBIC) 15 mg tablet Take 1 tablet by mouth once daily as needed for pain. With food. - furosemide (LASIX) 40 mg tablet Take 1 tablet by mouth once daily as needed (for swelling). - keTORolac (ACULAR) 0.5 % ophthalmic solution EVERY 6 HOURS - prednisoLONE acetate (PRED FORTE) 1 % ophthalmic suspension EVERY 6 HOURS - promethazine (PHENERGAN) 25 mg tablet Take 25 mg by mouth every 6 hours as needed. - empagliflozin (JARDIANCE) 25 mg tablet Take 1 tablet by mouth daily with breakfast. ON HOLD FOLLOWING HOSPITAL DISCHARGE 04/2024 - lisinopril 2.5 mg tablet Take 1 tablet by mouth once daily. ON HOLD FOLLOWING HOSPITAL DISCHARGE 04/2024 - insulin aspart U-100 (NOVOLOG) 100 unit/mL (3 mL) INJECT 20 UNITS SUBCUTANEOUSLY WITH MEALS THREE TIMES A DAY PLUS SLIDING SCALE #2 (add 2 units for every 50 points above 150 mg/dl) BASED ON PRE-MEAL BLOOD SUGAR (MAX: 96 UNITS PER DAY) - insulin degludec (TRESIBA FLEXTOUCH U-200) 200 unit/mL (3 mL) injection Inject 80 Units subcutaneously daily at bedtime. - levothyroxine (SYNTHROID) 200 mcg tablet Take 1.5 tablets by mouth daily before breakfast. - blood sugar diagnostic (FREESTYLE LITE STRIPS) test strip Test blood sugar(s) 4 times daily. Dx: Other DM Code E11.40 Insulin: Yes - flash glucose sensor (FREESTYLE TAYLOR 14 DAY SENSOR) kit Use to check blood sugar 4 times daily. Please give 2 sensors per refill - dicyclomine (BENTYL) 10 mg capsule Take 1 capsule by mouth before meals and at bedtime. for abdominal pain - Fenofibrate (LOFIBRA) 160 mg tablet Take 1 tablet by mouth once daily. - rosuvastatin (CRESTOR) 10 mg tablet Take 1 tablet by mouth daily at bedtime. - hydrOXYzine HCl (ATARAX) 25 mg tablet Take 1-2 tablets by mouth at bedtime as needed. - Insulin [place], Disposable, (DROPLET PEN NEEDLE) 31 gauge x 3/16 use 1 PEN NEEDLE to inject MEDICATION subcutaneously four times a day - fluticasone (FLONASE) 50 mcg/actuation nasal spray Use 1-2 Sprays in each nostril once daily as needed. - PEG 400-propylene glycol (SYSTANE ULTRA) 0.4-0.3 % ophthalmic solution Use 1 Drop in both eyes four times daily. - Cholecalciferol, Vitamin D3, 125 mcg (5,000 unit) cap Take 1 capsule by mouth once daily. - blood sugar diagnostic (BLOOD GLUCOSE TEST) test strip Test blood sugar(s) 4 times daily. Dx: Other DM Code E11.40 Insulin: Yes - blood sugar diagnostic (BLOOD GLUCOSE TEST) test strip Test blood sugar(s) 4 times daily. Dx: Type 2 DM - Controlled E11.9 Insulin: Yes - OXYGEN, HOME THERAPY, Inhale as instructed as directed. Uses at 2 l/m via nasal cannula during the day and 4 l/m at night - Blood-Glucose Meter monitoring kit Check sugars daily and as needed (Freestyle Lite is what she has had) - Lancets lancets Test blood sugar(s) 4 times daily. Dx: E11.9 Insulin: Yes - Miscellaneous Medical Supply (BLOOD PRESSURE CUFF) 1 Each as needed. Blood pressure Monitor and Cuff, use as directed. Dx: I10 Hypertension - flash glucose scanning reader (FREESTY (more content not included)... [facility] 2 Viewson 06-30-2024 IMPRESSION: Stable proximal humeral fracture Solidworks Drafter: LAUREEN Transcribe Date/Time: Jun 30 2024 7:12A Dictated by : ROBIN BAKER MD This examination was interpreted and the report reviewed and electronically signed by: ROBIN BAKER MD on Jun 30 2024 7:13AM EST DIVISION OF RADIOLOGY * * *Final Report* * * DATE OF EXAM: Jun 26 2024 3:34PM [id number] - XR SHOULDER 2V AP/TRUE AP LT / PROCEDURE REASON: Other closed nondisplaced fracture of proximal end of left humerus, initial enco * * * * Physician Interpretation * * * * PROCEDURE: Left shoulder INDICATION: Other closed nondisplaced fracture of proximal end of left humerus, initial encounter .Closed nondisplaced fracture of proximal end of left humerus TECHNIQUE: XR SHOULDER 2V AP/TRUE AP LT COMPARISON: 06/14/2024 FINDINGS: Stable, mildly impacted humeral neck fracture. Evidence for interval healing. Joint spaces and acromiohumeral interval are maintained. DIVISION OF RADIOLOGY Provider, Claire Barcenas [facility] - 06/30/2024 * * *Final Report* * * DATE OF EXAM: Jun 26 2024 3:34PM [id number] - XR SHOULDER 2V AP/TRUE AP LT / PROCEDURE REASON: Other closed nondisplaced fracture of proximal end of left humerus, initial enco * * * * Physician Interpretation * * * * PROCEDURE: Left shoulder INDICATION: Other closed nondisplaced fracture of proximal end of left humerus, initial encounter .Closed nondisplaced fracture of proximal end of left humerus TECHNIQUE: XR SHOULDER 2V AP/TRUE AP LT COMPARISON: 06/14/2024 FINDINGS: Stable, mildly impacted humeral neck fracture. Evidence for interval healing. Joint spaces and acromiohumeral interval are maintained. IMPRESSION IMPRESSION: Stable proximal humeral fracture Solidworks Drafter: ROBERTS CHAPELMelba Transcribe Date/Time: Jun 30 2024 7:12A Dictated by : ROBIN BAKER MD This examination was interpreted and the report reviewed and electronically signed by: ROBIN BAKER MD on Jun 30 2024 7:13AM EST [facility] XR Shoulder - left 2 ViewsOr dered By: Ccf Provider on 06-30-2024 [facility] XR Shoulder - left 2 Viewson 06-26-2024 Radiology Study observation (narrative) Liam duarte [facility] CBC W Auto Differential pane l (Bld)on 05-16-2024 Basophils (Bld) [#/Vol] NINF C [facility] Basophils/100 WBC (Bld) 0.4 % C [facility] Differential cell count method Nom (Bld) Auto [facility] Eosinophils (Bld) [#/Vol] 0.24 10*3/uL [facility] Eosinophils/100 WBC (Bld) 5.0 % [facility] Erythrocyte distribution width (RBC) [Ratio] 13.9 % 11.5 - 15.0 % [facility] Hematocrit (Bld) [Volume fraction] 34.5 % Low 36.0 - 46.0 % [facility] Hemoglobin (Bld) [Mass/Vol] 10.7 g/dL Low 11.5 - 15.5 g/dL [facility] Immature granulocytes (Bld) [#/Vol] [facility] Immature granulocytes/100 WBC (Bld) 0.4 % [facility] Interpretation and review of laboratory results Abnormal [facility] Lymphocytes (Bld) [#/Vol] 0.84 10*3/uL Low [facility] Lymphocytes/100 WBC (Bld) 17.5 % [facility] MCH (RBC) [Entitic mass] 28.6 pg 26.0 - 34.0 pg [facility] MCHC (RBC) [Mass/Vol] 31.0 g/dL 30.5 - 36.0 g/dL [facility] MCV (RBC) [Entitic vol] 92.2 fL 80.0 - 100.0 fL [facility] Monocytes (Bld) [#/Vol] 0.29 10*3/uL [facility] Monocytes/100 WBC (Bld) 6.1 % C [facility] Neutrophils (Bld) [#/Vol] 3.38 10*3/uL [facility] Neutrophils/100 WBC (Bld) 70.6 % [facility] Nucleated RBC (Bld) [#/Vol] [facility] Nucleated RBC/100 WBC (Bld) [Ratio] 0.0 % /100 WBC [facility] Platelet mean volume (Bld) [Entitic vol] 11.6 fL 9.0 - 12.7 fL [facility] Platelets (Bld) [#/Vol] 136 10*3/uL Low [facility] RBC (Bld) [#/Vol] 3.74 10*6/uL Low 3.90 - 5.2 0 m/uL [facility] WBC (Bld) [#/Vol] 4.79 10*3/uL [facility] OXIMETRY WITH AMBULATIONon 0 05-16-2024 Aby Mancuso RPF T 05/16/2024 3:11 PM RESPIRATORY THERAPY OXIMETRY WITH AMBULATION Oximetry with Ambulation Test for This Encounter O2 Device O2 Adapter NC O2 Flow SpO2% HR Activity Ft Walked (ft) Time (min) Avg Speed (MPH) R/A 86 69 Resting NC 2 94 69 Resting NC 2 92 83 Walking, usual pace 135 3 0.51 General Information Pulse Oximetry Site Total Time Spent Walking Assistance/O2 Supply Carrier L Index Finger 30 Wheeled Walker NAME: DENIS Burgess PATIENT NAME: Samantha Romero DATE: May 16, 2024 TIME: 3:11 PM Comment: [facility] UA DIP, URINE (POC)on 2023 BILIRUBIN UA (POCT) Negative Negative [facility] CLARITY UA (POCT) Cloudy [facility] COLOR UA (POCT) Light yellow [facility] GLUCOSE UA (POCT) >=1000 Abnormal Negative mg/dL [facility] Hemoglobin Ql (U) Small Abnormal Negative [facility] Interpretation and review of laboratory results Abnormal [facility] KETONE UA (POCT) Negative Negative mg/dL [facility] LEUKOCYTES UA (POCT) Small Abnormal Negative [facility] NITRITE UA (POCT) Negative Negative [facility] PH UA (POCT) 7.0 4.5 - 8.0 [facility] Protein Ql (U) 100 mg/dL Abnormal Negative [facility] SPECIFIC GRAVITY UA (POCT) 1.015 1.005 - 1.030 [facility] UROBILINOGEN UA (POCT) 0.2 Lory l E.U./dL [facility] Location:[address], [place], [address] [facility] POINT OF CARE [facility] OXIMETRY WITH AMBULATIONon 0 12-10-2023 [facility] XR Lumbar spine 3 Viewson IMPRESSION: Lumbar s pine mild degenerative changes. Solidworks Drafter: LAUREEN Transcribe Date/Time: Oct 28 2023 4:42P Dictated by : BUNNY ATWOOD MD This examination was interpreted and the report reviewed and electronically signed by: BUNNY ATWOOD MD on Oct 28 2023 4:43PM EST DIVISION OF RADIOLOGY * * *Final Report* * * DATE OF EXAM: Oct 28 2023 3:20PM [id number] - XR LUMBAR 3V AP/LAT/L5-S1 / PROCEDURE REASON: multiple diagnoses * * * * Physician Interpretation * * * * EXAM TITLE: XR LUMBAR 3V AP/LAT/L5-S1 EXAM DATE/TIME: 10/28/2023 3:20 PM COMPARISON: None. CLINICAL INDICATION/HISTORY: Fall. TECHNIQUE: AP, lateral and cone down lateral views of the lumbar spine are presented. FINDINGS: There are five irb-xdr-[id number] lumbar vertebrae. No acute fracture or subluxations are noted. The disc spaces are well preserved. There is mild osteophyte formation. DIVISION OF RADIOLOGY Provider, Claire Barcenas [facility] - 10/28/2023 * * *Final Report* * * DATE OF EXAM: Oct 28 2023 3:20PM [id number] - XR LUMBAR 3V AP/LAT/L5-S1 / PROCEDURE REASON: multiple diagnoses * * * * Physician Interpretation * * * * EXAM TITLE: XR LUMBAR 3V AP/LAT/L5-S1 EXAM DATE/TIME: 10/28/2023 3:20 PM COMPARISON: None. CLINICAL INDICATION/HISTORY: Fall. TECHNIQUE: AP, lateral and cone down lateral views of the lumbar spine are presented. FINDINGS: There are five zqi-son-xpqfpon lumbar vertebrae. No acute fracture or subluxations are noted. The disc spaces are well preserved. There is mild osteophyte formation. IMPRESSION IMPRESSION: Lumbar spine mild degenerative changes. Solidworks Drafter: PSCB Transcribe Date/Time: Oct 28 2023 4:42P Dictated by : BUNNY ATWOOD MD This examination was interpreted and the report reviewed and electronically signed by: BUNNY ATWOOD MD on Oct 28 2023 4:43PM EST [facility] Radiology Study observation (narrative) Liam Royal XR Lumbar spine 3 ViewsOrder ed By: Ccf Provider on 10-28-2023 [facility] ALBUMIN/CREAT RATIO RND URon 10-12-2023 Albumin DL <= 20 mg/L (U) [Mass/Vol] 148.7 mg/L [facility] Albumin/Creatinine (U) [Mass ratio] 424 mg/g High <30 mg/g [facility] Creatinine (U) [Mass/Vol] 35.1 mg/dL 20.0 - 300.0 mg/dL [facility] Comprehensive metabolic 2000 panelon 10-12-2023 Albumin [Mass/Vol] 4.0 g/dL 3.9 - 4.9 g/dL [facility] ALP [Catalytic activity/Vol] 63 U/L 34 - 123 U/L [facility] ALT [Catalytic activity/Vol] 16 U/L 7 - 38 U/L [facility] Anion gap [Moles/Vol] 11 mmol/L 9 - 18 mmol/L [facility] AST [Catalytic activity/Vol] 18 U/L 13 - 35 U/L [facility] Bilirubin [Mass/Vol] 0.3 mg/dL 0.2 - 1 .3 mg/dL [facility] Calcium [Mass/Vol] 9.9 mg/dL 8.5 - 10. 2 mg/dL [facility] Chloride [Moles/Vol] 96 mmol/L Low 97 - 10 5 mmol/L [facility] CO2 [Moles/Vol] 29 mmol/L 22 - 30 mmol/L [facility] Creatinine [Mass/Vol] 1.24 mg/dL High 0.58 - 0.96 mg/dL [facility] Estimated Glomerular Filtration Rate 51 mL/min/1.73m Low >=60 mL/min/1.73 m [facility] Glucose [Mass/Vol] 310 mg/dL High 74 - 99 mg/dL [facility] Potassium [Moles/Vol] 4.1 mmol/L 3.7 - 5.1 mmol/L [facility] Protein [Mass/Vol] 7.5 g/dL 6.3 - 8.0 g/dL [facility] Sodium [Moles/Vol] 136 mmol/L 136 - 144 mmol/L [facility] Urea nitrogen [Mass/Vol] 44 mg/dL High 7 - 21 mg/dL [facility] HbA1c (Bld)on 10-12-2023 Average glucose Estimated from glycated hemoglobin (Bld) [Mass/Vol] 303 mg/dL [facility] HbA1c (Bld) [Mass fraction] 12.2 % High 4.3 - 5.6 % [facility] T3 FREE BLDon 10-12-2023 Free T3 [Mass/Vol] 2.6 pg/mL 2.3 - 4.1 pg/mL [facility] T4 FREE/FREE THYROXon 2023 Free T4 [Mass/Vol] 2.0 ng/dL High 0.9 - 1.7 ng/dL [facility] TSH BLDon 10-12-2023 TSH Qn 1.700 m[IU]/L 0.270 - 4.200 mIU/L [facility] VITAMIN D 25 HYDROXYon 10-12 25-hydroxyvitamin D3 [Mass/Vol] 15.9 ng/mL Low 31.0 - 80.0 ng/mL [facility] CBC panel Auto (Bld)on 10-11 Erythrocyte distribution width (RBC) [Ratio] 14.0 % 11.5 - 15.0 % [facility] Hematocrit (Bld) [Volume fraction] 38.6 % 36.0 - 46.0 % [facility] Hemoglobin (Bld) [Mass/Vol] 12.4 g/dL 11.5 - 15.5 g/dL [facility] MCH (RBC) [Entitic mass] 28.8 pg 26.0 - 34.0 pg [facility] MCHC (RBC) [Mass/Vol] 32.1 g/dL 30.5 - 36.0 g/dL [facility] MCV (RBC) [Entitic vol] 89.8 fL 80.0 - 100.0 fL [facility] Nucleated RBC (Bld) [#/Vol] <0.01 k/uL [facility] Platelet mean volume (Bld) [Entitic vol] 11.7 fL 9.0 - 12.7 fL [facility] Platelets (Bld) [#/Vol] 162 10*3/uL 150 - 400 k/uL [facility] RBC (Bld) [#/Vol] 4.30 10*6/uL 3.90 - 5.2 0 m/uL [facility] WBC (Bld) [#/Vol] 7.71 10*3/uL 3.70 - 11.00 k/uL [facility] Absolute lymphocyte countOrd ered By: Vikram Hicks on 08-12-2023 Lymphocytes Auto (Unsp spec) [#/Vol] 1.54 10*3/uL 0.83-4.51 [facility] Basophil percentageOrdered B y: Vikram Hicks on 08-12-2023 Lactate [Moles/Vol] 0.3 mmol/L 0.4-2.0 [facility] Basophils/100 WBC (Bld) 0.4 % 0-1 [facility] Eosinophils/100 WBC (Bld) 3.1 % 0-5 [facility] Neutrophils (Bld) [#/Vol] 4.6 10*3/uL 2.0-7.7 [facility] Neutrophils/100 WBC (Bld) 63.8 % 47-70 [facility] WBC (Bld) [#/Vol] 7.2 10*3/uL 4.4-11.0 [facility] Chloride [Moles/Vol] 101 mmol/L 98-107 [facility] Glucose [Mass/Vol] 251 mg/dL 74-106 [facility] Comment on above: Glucose result great er than or equal to 200 mg/dLsuggests DIABETES MELLITUS per A.D.A. criteria. Potassium [Moles/Vol] 4.4 mmol/L 3.5-5.1 [facility] Comment on above: Moderate Hemolysis, Result may be falsely increased. Sodium [Moles/Vol] 135 mmol/L 136-145 [facility] Blood erythrocytes count (nu mber/volume)Ordered By: Vikram Hicks on 08-12-2023 RBC (Bld) [#/Vol] 3.98 10*6/uL 4.2-5.4 [facility] Blood hemoglobin measurement (mass/volume)Ordered By: Vikram Hicks on 08-12-2023 Hemoglobin (Bld) [Mass/Vol] 11.1 g/dL 12.0-15.0 [facility] Blood lymphocytes/100 leukoc ytesOrdered By: Vikram Hicks on 08-12-2023 Lymphocytes/100 WBC (Bld) 21.5 % 19-41 [facility] Blood monocytes/100 leukocyt esOrdered By: Vikram Hicks on 08-12-2023 Monocytes/100 WBC (Bld) 10.6 % 0-10 [facility] Blood platelet mean volumeOr dered By: Vikram Hicks on 08-12-2023 Platelet mean volume (Bld) [Entitic vol] 11.1 fL 6.2-12.0 [facility] Determination of erythrocyte mean corpuscular volume (MCV)Ordered By: Vikram Hicks on 08-12-2023 MCV (RBC) [Entitic vol] 88.9 fL 81-99 [facility] Hematocrit Auto (Bld) [Volum e fraction]Ordered By: Vikram Hicks on 08-12-2023 Hematocrit (Bld) [Volume fraction] 35.4 % 37-47 [facility] Laboratory - Chemistry and C hemistry - challengeOrdered By: Vikram Hicks on 08-12-2023 CO2 [Moles/Vol] 29.0 mmol/L 21.0-32.0 [facility] Urea nitrogen/Creatinine [Mass ratio] 31.3 mg/mg 10-20 [facility] Laboratory - Hematology and Cell countsOrdered By: Vikram Hicks on 08-12-2023 Erythrocyte distribution width (RBC) [Entitic vol] 45.9 fL 35.1-43.9 [facility] Erythrocyte distribution width (RBC) [Ratio] 14.3 % 11.6-14.6 [facility] Immature granulocytes/100 WBC (Bld) 0.600 % 0.0-0.9 [facility] Comment on above: IG% - Immature Granu locytes (promyelocytes, myelocytes and metamyelocytes) > 1% indicates that a LEFT SHIFT is Present. MCH (RBC) [Entitic mass] 27.9 pg 27.0-32.0 [facility] Nucleated RBC/100 WBC (Bld) [Ratio] 0 % 0-5 [facility] MCHC Auto (RBC) [Mass/Vol]Or dered By: Vikram Hicks on 08-12-2023 MCHC (RBC) [Mass/Vol] 31.4 g/dL 32-36 [facility] No Panel InformationOrdered By: Vikram Hicks on 08-12-2023 Troponin I High Sensitivity 23 pg/mL 3.0-54.0 [facility] Comment on above: Please Note: New Mariah t Units and Gender Specific Reference Ranges. For more information see Policy Stat Procedure Henry High Sensitivity Troponin (TNIH) and attachments. Estimated GFR (MDRD) Amer 47 mL/min >60 [facility] Comment on above: GFR Calc Estimated GFR (MDRD) Non-Af Amer 39 mL/min >60 [facility] Comment on above: Non- GFR Calc Platelets bldOrdered By: Cherry naina Kurt on 08-12-2023 Platelets (Bld) [#/Vol] 166 10*3/uL 150-450 [facility] Serum or plasma calcium brando urement (mass/volume)Ordered By: Vikram Hicks on 08-12-2023 Calcium [Mass/Vol] 9.6 mg/dL 8.5-10.1 [facility] Serum or plasma creatinine m easurement (mass/volume)Ordered By: Vikram Hicks on 08-12-2023 Creatinine [Mass/Vol] 1.47 mg/dL 0.55-1.02 [facility] Comment on above: The validity of the calculated GFR & GFRAA in patients over 70 years has not been determined. Clinical correlation is essential. Serum or plasma urea nitroge n measurement (mass/volume)Ordered By: Vikram Hicks on 08-12-2023 Urea nitrogen [Mass/Vol] 46 mg/dL 7-18 [facility] Thin prep Papanicolaou smear with manual screeningOrdered By: Vikram Hicks on 08-12-2023 Thin prep Papanicolaou smear with manual screening 5 5-15 [facility] CNOVon 07-01-2023 CNOV Office Visit (SPAGWO ) -------- SAMANTHA ROMERO ([id number]) 1965 F Date Time Provider Department 07/01/23 2:00 PM JAIDA SOARES SPAGWO During your visit today, we recorded the following information about you: Pulse Respiration 75/minute 18/minute Jaida Soares MD 07/01/2023 2:38 PM Signed [facility] Today's Date: 07/01/2023 Last Visit: N/A Name: Samantha Romero : 1965 Purpose: New Patient Consultation Chief complaint: low back pain Pain Description: Timing: intermittant Character: aching and sharp Primary Location: axial low back Radiation: bilateral buttocks Exacerbating factors: standing and walking Relieving factors: sitting and lying down Interferes with: physical activity The patient denies difficulty with bowel or bladder control, unintentional weight loss, and fevers, chills, or night sweats. Notable Events During Course of Treatment: 06/30/2023 - Initial HPI: Referred by Sarina Adams MD, for evaluation AND management of low back pain Duration: 1 year Sudden onset? no, Trauma? no Prior Treatments: Medications (See below), Modalities (eg. Heat, Ice), Home Exercise Program , and Activity Modification She was diagnosed with peripheral neuropathy, no prior EMG. She is on O2 continuously for post-COVID chronic dyspnea INTAKE PAIN ASSESSMENT 06/28/2023 07/01/2023 Are you having pain associated with your visit today? Yes, Provider notified Yes, Provider notified Pain Scales Verbal (Numeric Rating or Visual Analog Scale) Verbal (Numeric Rating or Visual Analog Scale) Pain Level 8 6 Pain Location Back Back-Lower Description Sharp Stabbing;Sharp;Aching;Ra diating Duration Amount of Time 10 - Duration Units Days Years Frequency Continuous Intermittent Intervention/Comfort measure Medication Medication;Reposition;Re laxation Comments - - Pain Assessment - - Medications: CURRENT Pain Medications: Reynolds 5/325mg once daily PRN (PCP) Mobic 15mg PRN (PCP) Gabapentin 600mg BID - for peripheral neuropathy (PCP) Pain Medications Taken TO DATE (for the chief complaint(s)): Membrane Stabilizers: Neurontin (Gabapentin) NSAIDS: Naprosyn (Naproxen) and Mobic (Meloxicam) Opioids: Vicodin or Reynolds (Hydrocodone) Muscle Relaxants: Zanaflex (Tizanidine) Topicals: none Other Prescription or OTC Pain Medications: Aspirin Anti-depressants: none Non-Pain Meds of Note: Lasix Allergies: ALLERGIES Allergen Reactions Metformin Diarrhea Diarrhea every time takes, even with ER dose Oxycodone GI Upset Percocet [Oxycodone* GI Upset and off balance Compliance: PDMP website checked and validated. All prescriptions have been APPROPRIATELY filled. No suspicious activity was identified. on 07/01/2023 by Jadia Soares MD Reynolds 5/325, #30 (06/24/2023, 05/25/2023, 04/25/2023)... (PCP) Recent Drug screens: AG SPINE COMBINATION 07/01/2023 Questionnaire GREENLIGHT Completed Date 07/01/2023 Questionnaire Opiod Risk Tool Completed Date 07/01/2023 Risk Assessment: CHRISTIAN-7: CHRISTIAN - 7 SCORES 07/01/2023 CHRISTIAN-7 Score 2 (0-4) minimal anxiety, (5-9) mild anxiety, (10-14) moderate anxiety, (15-21) severe anxiety PHQ-9: PHQ-9 12/14/2022 07/01/2023 Score 4 2 (0-4) minimal depression, (5-9) mild depression, (10-14) moderate depression, (15-19) moderately severe depression, (20-27) severe depression Opioid Risk Tool: Family History of Substance Abuse: 0 - No Personal History of Substance Abuse: 0 - No Age between 16-45: 0 - No History of Pre-Adolescence Sexual Abuse: 0 - No Psychological Disease: 0 - No Risk Total: 0 Total Score Risk Category: Low Risk 0-3 (0-3, low risk or no risk; 4-7, moderate risk, 8+, high risk) Diagnostic Studies: Relevant Imaging: Reviewed Personally on today's date, noted above MRI Spine Report No resulted procedures found. Electrodiagnostic Study (EMG): None Recent Labs: Creatinine Date Value Ref Range Status 06/28/2023 1.22 (H) 0.58 - 0.96 mg/dL Final No results found for: GFR Glucose, Point of Care Date Value Ref Range Status 06/26/2015 223 (A) 65 - 100 mg/dL Final Pain Procedures: DATE PROCEDURE IMPROVEMENT None to date at this practice Current Medications, Past Medical History, Past Surgical History, Family History, Social History and Review of Systems: On today's date, noted above, I have confirmed and edited as necessary, the PFSH and ROS obtained by others. Physical Exam: 07/01/23 1418 Pulse: 75 Resp: 18 SpO2: 93% Constitutional:morbidly obese Eyes: Conjunctiva clear. No discharge from eyes Cardiovascular: Appears well perfused Lymphatic: No visible regional lymphadenopathy Skin: No visible rashes or ecchymosis Psychiatric: Full affect, Alert, Pleasant Neuro-Lower: Neural Tension Signs: Negative slump in Bilateral lower limbs Sensation: intact to light touc (more content not included)... Normal [facility] XR LUMBAR MOTION 4V AP/LAT/ FLEX/EXTon 07-01-2023 [facility] Comprehensive metabolic 2000 panelon 06-28-2023 Albumin [Mass/Vol] 4.0 g/dL 3.9 - 4.9 g/dL [facility] ALP [Catalytic activity/Vol] 80 U/L 34 - 123 U/L [facility] ALT [Catalytic activity/Vol] 23 U/L 7 - 38 U/L [facility] Anion gap [Moles/Vol] 18 mmol/L 9 - 18 mmol/L [facility] AST [Catalytic activity/Vol] 17 U/L 13 - 35 U/L [facility] Bilirubin [Mass/Vol] 0.2 mg/dL 0.2 - 1 .3 mg/dL [facility] Calcium [Mass/Vol] 9.6 mg/dL 8.5 - 10. 2 mg/dL [facility] Chloride [Moles/Vol] 97 mmol/L 97 - 10 5 mmol/L [facility] CO2 [Moles/Vol] 21 mmol/L Low 22 - 30 mmol/L [facility] Creatinine [Mass/Vol] 1.22 mg/dL High 0.58 - 0.96 mg/dL [facility] Estimated Glomerular Filtration Rate 52 mL/min/1.73m Low >=60 mL/min/1.73 m [facility] Glucose [Mass/Vol] 377 mg/dL High 74 - 99 mg/dL [facility] Potassium [Moles/Vol] 4.4 mmol/L 3.7 - 5.1 mmol/L [facility] Protein [Mass/Vol] 7.1 g/dL 6.3 - 8.0 g/dL [facility] Sodium [Moles/Vol] 136 mmol/L 136 - 144 mmol/L [facility] Urea nitrogen [Mass/Vol] 45 mg/dL High 7 - 21 mg/dL [facility] No Panel Informationon 05-27 IMPRESSION: No acute fracture or dislocation Solidworks Drafter: LAUREEN Transcribe Date/Time: May 27 2023 3:26P Dictated by : JURGEN CUNHA MD This examination was interpreted and the report reviewed and electronically signed by: JURGEN CUNHA MD on May 27 2023 3:31PM [facility] DIVISION OF RADIOLOGY No Panel InformationOrdered By: Ccf Provider on 05-27-2023 [facility] XR Hand - right PA and Later al and Obliqueon 05-27-2023 * * *Final Report* * * DATE OF EXAM: May 24 2023 3:32PM WOX [id number] - XR HAND 3V PA/LAT/OBL RT / PROCEDURE REASON: multiple diagnoses * * * * Physician Interpretation * * * * EXAM(s): XR HAND 3V PA/LAT/OBL RT, XR FOREARM 2V AP/LAT RT EXAM DATE/TIME: 05/24/2023 3:32 PM HISTORY: 57 years old Clinical information: Fall, initial encounter Right arm pain Right hand pain Right hand and right forearm pain after fall this morning. TECHNIQUE: Images: XR HAND 3V PA/LAT/OBL RT, XR FOREARM 2V AP/LAT RT Comparison: None. RESULT: Findings: Bone density appears well-preserved. No fractures or dislocations are seen. Nonspecific chronic periosteal reaction about the medial cortex of the ring finger proximal phalanx DIVISION OF RADIOLOGY Provider, [facility] - 05/27/2023 * * *Final Report* * * DATE OF EXAM: May 24 2023 3:32PM WOX [id number] - XR HAND 3V PA/LAT/OBL RT / PROCEDURE REASON: multiple diagnoses * * * * Physician Interpretation * * * * EXAM(s): XR HAND 3V PA/LAT/OBL RT, XR FOREARM 2V AP/LAT RT EXAM DATE/TIME: 05/24/2023 3:32 PM HISTORY: 57 years old Clinical information: Fall, initial encounter Right arm pain Right hand pain Right hand and right forearm pain after fall this morning. TECHNIQUE: Images: XR HAND 3V PA/LAT/OBL RT, XR FOREARM 2V AP/LAT RT Comparison: None. RESULT: Findings: Bone density appears well-preserved. No fractures or dislocations are seen. Nonspecific chronic periosteal reaction about the medial cortex of the ring finger proximal phalanx IMPRESSION IMPRESSION: No acute fracture or dislocation Solidworks Drafter: LAUREEN Transcribe Date/Time: May 27 2023 3:26P Dictated by : JURGEN CUNHA MD This examination was interpreted and the report reviewed and electronically signed by: JURGEN CUNHA MD on Aug 24 2023 3:31PM EST [facility] XR Radius and Ulna - right A P and Lateralon 05-27-2023 * * *Final Report* * * DATE OF EXAM: May 24 2023 3:32PM WOX [id number] - XR FOREARM 2V AP/LAT RT / PROCEDURE REASON: multiple diagnoses * * * * Physician Interpretation * * * * EXAM(s): XR HAND 3V PA/LAT/OBL RT, XR FOREARM 2V AP/LAT RT EXAM DATE/TIME: 05/24/2023 3:32 PM HISTORY: 57 years old Clinical information: Fall, initial encounter Right arm pain Right hand pain Right hand and right forearm pain after fall this morning. TECHNIQUE: Images: XR HAND 3V PA/LAT/OBL RT, XR FOREARM 2V AP/LAT RT Comparison: None. RESULT: Findings: Bone density appears well-preserved. No fractures or dislocations are seen. Nonspecific chronic periosteal reaction about the medial cortex of the ring finger proximal phalanx DIVISION OF RADIOLOGY [facility] * * *Final Report* * * DATE OF EXAM: May 24 2023 3:32PM WOX [id number] - XR FOREARM 2V AP/LAT RT / PROCEDURE REASON: multiple diagnoses * * * * Physician Interpretation * * * * EXAM(s): XR HAND 3V PA/LAT/OBL RT, XR FOREARM 2V AP/LAT RT EXAM DATE/TIME: 05/24/2023 3:32 PM HISTORY: 57 years old Clinical information: Fall, initial encounter Right arm pain Right hand pain Right hand and right forearm pain after fall this morning. TECHNIQUE: Images: XR HAND 3V PA/LAT/OBL RT, XR FOREARM 2V AP/LAT RT Comparison: None. RESULT: Findings: Bone density appears well-preserved. No fractures or dislocations are seen. Nonspecific chronic periosteal reaction about the medial cortex of the ring finger proximal phalanx IMPRESSION IMPRESSION: No acute fracture or dislocation Solidworks Drafter: LAUREEN Transcribe Date/Time: May 27 2023 3:26P Dictated by : JURGEN CUNHA MD This examination was interpreted and the report reviewed and electronically signed by: JURGEN CUNHA MD on May 27 2023 3:31PM EST [facility] No Panel Informationon 05-24 Radiology Study observation (narrative) Liam duarte [facility] XR CHEST 2V FRONTAL/LATon [facility] Absolute lymphocyte countOrd ered By: Tavo Son on 04-09-2023 Lymphocytes Auto (Unsp spec) [#/Vol] 2.73 10*3/uL 0.83-4.51 [facility] Basophil percentageOrdered B y: Tavo Son on 04-09-2023 Basophils/100 WBC (Bld) 0.2 % 0-1 [facility] Eosinophils/100 WBC (Bld) 2.1 % 0-5 [facility] Neutrophils (Bld) [#/Vol] 4.6 10*3/uL 2.0-7.7 [facility] Neutrophils/100 WBC (Bld) 57.0 % 47-70 [facility] WBC (Bld) [#/Vol] 8.1 10*3/uL 4.4-11.0 [facility] Basophil percentageOrdered B y: Taylor Nassar on 04-09-2023 Chloride [Moles/Vol] 98 mmol/L 98-107 [facility] Glucose [Mass/Vol] 446 mg/dL 74-106 [facility] Comment on above: Glucose result great er than or equal to 200 mg/dLsuggests DIABETES MELLITUS per A.D.A. criteria. Potassium [Moles/Vol] 4.8 mmol/L 3.5-5.1 [facility] Comment on above: Moderate Hemolysis, Result may be falsely increased. Sodium [Moles/Vol] 133 mmol/L 136-145 [facility] Blood erythrocytes count (nu mber/volume)Ordered By: Tavo Son on 04-09-2023 RBC (Bld) [#/Vol] 3.94 10*6/uL 4.2-5.4 [facility] Blood hemoglobin measurement (mass/volume)Ordered By: Tavo Son on 04-09-2023 Hemoglobin (Bld) [Mass/Vol] 10.9 g/dL 12.0-15.0 [facility] Blood lymphocytes/100 leukoc ytesOrdered By: Tavo Son on 04-09-2023 Lymphocytes/100 WBC (Bld) 33.8 % 19-41 [facility] Blood monocytes/100 leukocyt esOrdered By: Tavo Son on 04-09-2023 Monocytes/100 WBC (Bld) 6.7 % 0-10 [facility] Blood platelet mean volumeOr dered By: Tavo Son on 04-09-2023 Platelet mean volume (Bld) [Entitic vol] 11.8 fL 6.2-12.0 [facility] Determination of erythrocyte mean corpuscular volume (MCV)Ordered By: Tavo Son on 04-09-2023 MCV (RBC) [Entitic vol] 86.8 fL 81-99 [facility] Hematocrit Auto (Bld) [Volum e fraction]Ordered By: Tavo Son on 04-09-2023 Hematocrit (Bld) [Volume fraction] 34.2 % 37-47 [facility] Influenza virus A and B and SARS-CoV-2 (COVID-19) Ag panel - Upper respiratory specimOrdered By: Taylor Nassar on 04-09-2023 SARS-CoV-2 (COVID-19) RNA PATRICIA+probe Ql (Resp) [facility] Laboratory - Chemistry and C hemistry - challengeOrdered By: Tavo Son on 04-09-2023 Natriuretic peptide B (Bld) [Mass/Vol] 6.7 pg/mL 0-100 [facility] Laboratory - Chemistry and C hemistry - challengeOrdered By: Taylor Nassar on 04-09-2023 CO2 [Moles/Vol] 28.0 mmol/L 21.0-32.0 [facility] Urea nitrogen/Creatinine [Mass ratio] 31.1 mg/mg 10-20 [facility] Laboratory - Hematology and Cell countsOrdered By: Tavo Son on 04-09-2023 Erythrocyte distribution width (RBC) [Entitic vol] 48.0 fL 35.1-43.9 [facility] Erythrocyte distribution width (RBC) [Ratio] 15.1 % 11.6-14.6 [facility] Immature granulocytes/100 WBC (Bld) 0.200 % 0.0-0.9 [facility] Comment on above: IG% - Immature Granu locytes (promyelocytes, myelocytes and metamyelocytes) > 1% indicates that a LEFT SHIFT is Present. MCH (RBC) [Entitic mass] 27.7 pg 27.0-32.0 [facility] Nucleated RBC/100 WBC (Bld) [Ratio] 0 % 0-5 [facility] MCHC Auto (RBC) [Mass/Vol]Or dered By: Tavo Son on 04-09-2023 MCHC (RBC) [Mass/Vol] 31.9 g/dL 32-36 [facility] No Panel InformationOrdered By: Taylor Nassar on 04-09-2023 Estimated GFR (MDRD) Amer 38 mL/min >60 [facility] Comment on above: GFR Calc Estimated GFR (MDRD) Non-Af Amer 31 mL/min >60 [facility] Comment on above: Non- GFR Calc Troponin I High Sensitivity 37 pg/mL 3.0-54.0 [facility] Comment on above: Please Note: New Mariah t Units and Gender Specific Reference Ranges. For more information see Policy Stat Procedure [facility] High Sensitivity Troponin (TNIH) and attachments. Platelets bldOrdered By: Yulissa Son on 04-09-2023 Platelets (Bld) [#/Vol] 151 10*3/uL 150-450 [facility] Serum or plasma calcium brando urement (mass/volume)Ordered By: Taylor Nassar on 04-09-2023 Calcium [Mass/Vol] 9.6 mg/dL 8.5-10.1 [facility] Serum or plasma creatinine m easurement (mass/volume)Ordered By: Taylor Nassar on 04-09-2023 Creatinine [Mass/Vol] 1.77 mg/dL 0.55-1.02 [facility] Comment on above: The validity of the calculated GFR & GFRAA in patients over 70 years has not been determined. Clinical correlation is essential. Serum or plasma urea nitroge n measurement (mass/volume)Ordered By: Taylor Nassar on 04-09-2023 Urea nitrogen [Mass/Vol] 55 mg/dL 7-18 [facility] Thin prep Papanicolaou smear with manual screeningOrdered By: Taylor Nassar on 04-09-2023 Thin prep Papanicolaou smear with manual screening 7 5-15 [facility] VITAMIN D 25 HYDROXYon 03-29 25-hydroxyvitamin D3 [Mass/Vol] 10.9 ng/mL Low 31.0 - 80.0 ng/mL [facility] Comprehensive metabolic 2000 panelon 03-27-2023 Albumin [Mass/Vol] 4.2 g/dL 3.9 - 4.9 g/dL [facility] ALP [Catalytic activity/Vol] 66 U/L 34 - 123 U/L [facility] ALT [Catalytic activity/Vol] 25 U/L 7 - 38 U/L [facility] Anion gap [Moles/Vol] 16 mmol/L 9 - 18 mmol/L [facility] AST [Catalytic activity/Vol] 25 U/L 13 - 35 U/L [facility] Bilirubin [Mass/Vol] 0.2 mg/dL 0.2 - 1 .3 mg/dL [facility] Calcium [Mass/Vol] 9.2 mg/dL 8.5 - 10. 2 mg/dL [facility] Chloride [Moles/Vol] 99 mmol/L 97 - 10 5 mmol/L [facility] CO2 [Moles/Vol] 24 mmol/L 22 - 30 mmol/L [facility] Creatinine [Mass/Vol] 0.95 mg/dL 0.58 - 0.96 mg/dL [facility] Estimated Glomerular Filtration Rate 70 mL/min/1.73m >=60 mL/min/1.73 m [facility] Glucose [Mass/Vol] 316 mg/dL High 74 - 99 mg/dL [facility] Potassium [Moles/Vol] 4.3 mmol/L 3.7 - 5.1 mmol/L [facility] Protein [Mass/Vol] 7.1 g/dL 6.3 - 8.0 g/dL [facility] Sodium [Moles/Vol] 139 mmol/L 136 - 144 mmol/L [facility] Urea nitrogen [Mass/Vol] 32 mg/dL High 7 - 21 mg/dL [facility] HbA1c (Bld)on 03-27-2023 Average glucose Estimated from glycated hemoglobin (Bld) [Mass/Vol] 309 mg/dL [facility] HbA1c (Bld) [Mass fraction] 12.4 % High 4.3 - 5.6 % [facility] T3 FREE BLDon 03-27-2023 Free T3 [Mass/Vol] 1.9 pg/mL Low 2.3 - 4.1 pg/mL [facility] T4 FREE/FREE THYROXon 2022 Free T4 [Mass/Vol] 1.3 ng/dL 0.9 - 1.7 ng/dL [facility] TOX SCREEN ROUT URon 023 Amphetamines Confirm (U) [Mass/Vol] Negative Negative [facility] Barbiturates Urine Negative Negative [facility] Benzodiazepines Urine Negative Negative [facility] Cannabinoids, Urine Negative Negative [facility] Cocaine Ql (U) Negative Negative [facility] Ethanol (U) [Mass/Vol] <11 mg/dL Cl [facility] Opiates Screen Ql (U) Negative Negative [facility] oxyCODONE cutoff Screen (U) [Mass/Vol] Negative Negative [facility] Phencyclidine Ql (U) Negative Negative [facility] TSH BLDon 03-27-2023 TSH Qn 9.630 m[IU]/L High 0.270 - 4.200 mIU/L [facility] CBC panel Auto (Bld)on 03-26 Erythrocyte distribution width (RBC) [Ratio] 15.0 % 11.5 - 15.0 % [facility] Hematocrit (Bld) [Volume fraction] 35.2 % Low 36.0 - 46.0 % [facility] Hemoglobin (Bld) [Mass/Vol] 10.9 g/dL Low 11.5 - 15.5 g/dL [facility] MCH (RBC) [Entitic mass] 27.2 pg 26.0 - 34.0 pg [facility] MCHC (RBC) [Mass/Vol] 31.0 g/dL 30.5 - 36.0 g/dL [facility] MCV (RBC) [Entitic vol] 87.8 fL 80.0 - 100.0 fL [facility] Nucleated RBC (Bld) [#/Vol] <0.01 k/uL [facility] Platelet mean volume (Bld) [Entitic vol] 11.4 fL 9.0 - 12.7 fL [facility] Platelets (Bld) [#/Vol] 135 10*3/uL Low 150 - 400 k/uL [facility] RBC (Bld) [#/Vol] 4.01 10*6/uL 3.90 - 5.2 0 m/uL [facility] WBC (Bld) [#/Vol] 5.05 10*3/uL 3.70 - 11.00 k/uL [facility] CBC W Auto Differential pane l (Bld)on 01-16-2023 Basophils (Bld) [#/Vol] 0.04 10*3/uL <0.11 k/uL [facility] Basophils/100 WBC (Bld) 0.7 % [facility] Differential cell count method Nom (Bld) Auto [facility] Eosinophils (Bld) [#/Vol] 0.29 10*3/uL <0.46 k/uL [facility] Eosinophils/100 WBC (Bld) 5.2 % [facility] Erythrocyte distribution width (RBC) [Ratio] 13.8 % 11.5 - 15.0 % [facility] Hematocrit (Bld) [Volume fraction] 34.5 % Low 36.0 - 46.0 % [facility] Hemoglobin (Bld) [Mass/Vol] 10.4 g/dL Low 11.5 - 15.5 g/dL [facility] Immature granulocytes (Bld) [#/Vol] 0.03 10*3/uL <0.10 k/uL [facility] Immature granulocytes/100 WBC (Bld) 0.5 % [facility] Lymphocytes (Bld) [#/Vol] 1.18 10*3/uL 1.00 - 4.00 k/uL [facility] Lymphocytes/100 WBC (Bld) 21.1 % [facility] MCH (RBC) [Entitic mass] 26.5 pg 26.0 - 34.0 pg [facility] MCHC (RBC) [Mass/Vol] 30.1 g/dL Low 30.5 - 36.0 g/dL [facility] MCV (RBC) [Entitic vol] 87.8 fL 80.0 - 100.0 fL [facility] Monocytes (Bld) [#/Vol] 0.46 10*3/uL <0.87 k/uL [facility] Monocytes/100 WBC (Bld) 8.2 % [facility] Neutrophils (Bld) [#/Vol] 3.58 10*3/uL 1.45 - 7.50 k/uL [facility] Neutrophils/100 WBC (Bld) 64.3 % [facility] Nucleated RBC (Bld) [#/Vol] <0.01 k/uL [facility] Nucleated RBC/100 WBC (Bld) [Ratio] 0.0 /100 WBC [facility] Platelet mean volume (Bld) [Entitic vol] 11.7 fL 9.0 - 12.7 fL [facility] Platelets (Bld) [#/Vol] 163 10*3/uL 150 - 400 k/uL [facility] RBC (Bld) [#/Vol] 3.93 10*6/uL 3.90 - 5.2 0 m/uL [facility] WBC (Bld) [#/Vol] 5.58 10*3/uL 3.70 - 11.00 k/uL [facility] ESR Westergren method (Bld) [Velocity]on 01-16-2023 ESR (Bld) [Velocity] 21 mm/h High 0 - 20 mm/hr [facility] Absolute lymphocyte countOrd ered By: Steven Trent on 01-05-2023 Lymphocytes Auto (Unsp spec) [#/Vol] 1.13 10*3/uL 0.83-4.51 [facility] Basophil percentageOrdered B y: Steven Trent on 01-05-2023 Basophils/100 WBC (Bld) 0.2 % 0-1 [facility] Chloride [Moles/Vol] 101 mmol/L 98-107 [facility] Eosinophils/100 WBC (Bld) 3.9 % 0-5 [facility] Glucose [Mass/Vol] 444 mg/dL 74-106 [facility] Comment on above: Glucose result great er than or equal to 200 mg/dLsuggests DIABETES MELLITUS per A.D.A. criteria. Neutrophils (Bld) [#/Vol] 4.5 10*3/uL 2.0-7.7 [facility] Neutrophils/100 WBC (Bld) 69.6 % 47-70 [facility] Potassium [Moles/Vol] 4.2 mmol/L 3.5-5.1 [facility] Sodium [Moles/Vol] 134 mmol/L 136-145 [facility] WBC (Bld) [#/Vol] 6.5 10*3/uL 4.4-11.0 [facility] Blood erythrocytes count (nu mber/volume)Ordered By: Steven Trent on 01-05-2023 RBC (Bld) [#/Vol] 3.61 10*6/uL 4.2-5.4 [facility] Blood hemoglobin measurement (mass/volume)Ordered By: Steven Trent on 01-05-2023 Hemoglobin (Bld) [Mass/Vol] 9.8 g/dL 12.0-15.0 [facility] Blood lymphocytes/100 leukoc ytesOrdered By: Steven Trent on 01-05-2023 Lymphocytes/100 WBC (Bld) 17.5 % 19-41 [facility] Blood monocytes/100 leukocyt esOrdered By: Steven Trent on 01-05-2023 Monocytes/100 WBC (Bld) 8.2 % 0-10 [facility] Blood platelet mean volumeOr dered By: Steven Trent on 01-05-2023 Platelet mean volume (Bld) [Entitic vol] 11.2 fL 6.2-12.0 [facility] Determination of erythrocyte mean corpuscular volume (MCV)Ordered By: Steven Trent on 01-05-2023 MCV (RBC) [Entitic vol] 88.4 fL 81-99 [facility] Hematocrit Auto (Bld) [Volum e fraction]Ordered By: Steven Trent on 01-05-2023 Hematocrit (Bld) [Volume fraction] 31.9 % 37-47 [facility] Laboratory - Chemistry and C hemistry - challengeOrdered By: Steven Trent on 01-05-2023 CO2 [Moles/Vol] 26.0 mmol/L 21.0-32.0 [facility] Natriuretic peptide B (Bld) [Mass/Vol] 17.4 pg/mL 0-100 [facility] Urea nitrogen/Creatinine [Mass ratio] 31.7 mg/mg 10-20 [facility] Laboratory - Hematology and Cell countsOrdered By: Steven Trent on 01-05-2023 Erythrocyte distribution width (RBC) [Entitic vol] 45.1 fL 35.1-43.9 [facility] Erythrocyte distribution width (RBC) [Ratio] 14.2 % 11.6-14.6 [facility] Immature granulocytes/100 WBC (Bld) 0.600 % 0.0-0.9 [facility] Comment on above: IG% - Immature Granu locytes (promyelocytes, myelocytes and metamyelocytes) > 1% indicates that a LEFT SHIFT is Present. MCH (RBC) [Entitic mass] 27.1 pg 27.0-32.0 [facility] Nucleated RBC/100 WBC (Bld) [Ratio] 0 % 0-5 [facility] MCHC Auto (RBC) [Mass/Vol]Or dered By: Steven Trent on 01-05-2023 MCHC (RBC) [Mass/Vol] 30.7 g/dL 32-36 [facility] No Panel InformationOrdered By: Steven Trent on 01-05-2023 Estimated Creatinine Clearance Calc 38.56 ml/min [facility] Estimated GFR (MDRD) Amer 50 mL/min >60 [facility] Comment on above: GFR Calc Estimated GFR (MDRD) Non-Af Amer 42 mL/min >60 [facility] Comment on above: Non- GFR Calc Troponin I High Sensitivity 26 pg/mL 3.0-54.0 [facility] Comment on above: Please Note: New Mariah t Units and Gender Specific Reference Ranges. For more information see Policy Stat Procedure [facility] High Sensitivity Troponin (TNIH) and attachments. Platelets bldOrdered By: Galen Trent on 01-05-2023 Platelets (Bld) [#/Vol] 145 10*3/uL 150-450 [facility] Serum or plasma calcium brando urement (mass/volume)Ordered By: Steven Trent on 01-05-2023 Calcium [Mass/Vol] 8.8 mg/dL 8.5-10.1 [facility] Serum or plasma creatinine m easurement (mass/volume)Ordered By: Steven Trent on 01-05-2023 Creatinine [Mass/Vol] 1.39 mg/dL 0.55-1.02 [facility] Comment on above: The validity of the calculated GFR & GFRAA in patients over 70 years has not been determined. Clinical correlation is essential. Serum or plasma urea nitroge n measurement (mass/volume)Ordered By: Steven Trent on 01-05-2023 Urea nitrogen [Mass/Vol] 44 mg/dL 7-18 [facility] Thin prep Papanicolaou smear with manual screeningOrdered By: Steven Trent on 01-05-2023 Thin prep Papanicolaou smear with manual screening 7 -15 [facility] CBC panel Auto (Bld)on 12-18 Erythrocyte distribution width (RBC) [Ratio] 13.8 % 11.5 - 15.0 % [facility] Hematocrit (Bld) [Volume fraction] 33.3 % Low 36.0 - 46.0 % [facility] Hemoglobin (Bld) [Mass/Vol] 10.3 g/dL Low 11.5 - 15.5 g/dL [facility] MCH (RBC) [Entitic mass] 27.5 pg 26.0 - 34.0 pg [facility] MCHC (RBC) [Mass/Vol] 30.9 g/dL 30.5 - 36.0 g/dL [facility] MCV (RBC) [Entitic vol] 88.8 fL 80.0 - 100.0 fL [facility] Nucleated RBC (Bld) [#/Vol] <0.01 k/uL [facility] Platelet mean volume (Bld) [Entitic vol] 11.6 fL 9.0 - 12.7 fL [facility] Platelets (Bld) [#/Vol] 160 10*3/uL 150 - 400 k/uL [facility] RBC (Bld) [#/Vol] 3.75 10*6/uL Low 3.90 - 5.2 0 m/uL [facility] WBC (Bld) [#/Vol] 5.77 10*3/uL 3.70 - 11.00 k/uL [facility] HEMOGLOBIN A1C (POC)on 10-21 HbA1c (Bld) [Mass fraction] 11.0 % Abnormal 4.2 - 5.6 % [facility] UA DIP, URINE (POC)on 2021 BILIRUBIN UA (POCT) Negative Negative [facility] CLARITY UA (POCT) Cloudy [facility] COLOR UA (POCT) Light yellow [facility] GLUCOSE UA (POCT) 500 mg/dL Abnormal Negative mg/dL [facility] HEMOGLOBIN/BLOOD UA (POCT) Large Abnormal Negative [facility] KETONE UA (POCT) Negative Negative mg/dL [facility] LEUKOCYTES UA (POCT) Small Abnormal Negative [facility] NITRITE UA (POCT) Negative Negative [facility] PH UA (POCT) 5.0 4.5 - 8.0 [facility] Protein Ql (U) 30 mg/dL Abnormal Negative mg/dL [facility] SPECIFIC GRAVITY UA (POCT) 1.015 1.005 - 1.030 [facility] UROBILINOGEN UA (POCT) 0.2 E.U./dL Lory l E.U./dL [facility] Basophil percentageon 2021 Lactate [Moles/Vol] 1.8 mmol/L 0.4-2.0 [facility] Work Phone: Basophil percentage >100 SEEN /hpf 0-5 [facility] Work Phone: Bilirubin Test strip Ql (U)o n 08-10-2022 Bilirubin Ql (U) Negative Negative [facility] Work Phone: Ketones Test strip Ql (U)on 08-10-2022 Ketones Ql (U) Negative Negative [facility] Work Phone: Mucus LM Ql (Urine sed)on Mucus Ql (Urine sed) 0 SEEN /hpf [facility] Work Phone: Nitrite Test strip Ql (U)on 08-10-2022 Nitrite Ql (U) Positive Negative [facility] Work Phone: Protein Test strip Ql (U)on 08-10-2022 Protein Ql (U) 100 mg/dl Negative [facility] Work Phone: Squamous epithelial cells de tection in urine sediment by light microscopyon 08-10-2022 Epithelial cells.squamous LM Ql (Urine sed) 0 SEEN /hpf 5-10 [facility] Work Phone: Urine blood detectionon RBC Ql (U) 150 /ul Negative [facility] Work Phone: RBC Ql (U) 10-25 SEEN /hpf 0-5 [facility] Work Phone: Urine clarityon 08-10-2022 Clarity (U) Sl. Cloudy Clear [facility] Work Phone: Urine color determinationon 08-10-2022 Color (U) Yellow Yellow [facility] Work Phone: Urine glucose detectionon Glucose Ql (U) 1000 mg/dl Normal [facility] Work Phone: Urine leukocyte esterase det ection by dipstickon 08-10-2022 Leukocyte esterase Test strip Ql (U) 500 /ul Negative [facility] Work Phone: Urine pHon 08-10-2022 pH (U) 7.0 [pH] 5.0 - 8.0 [facility] Work Phone: Urine sediment bacteria coun t by microscopy (number/high power field)on 08-10-2022 Bacteria LM.HPF (Urine sed) [#/Area] 3 /[HPF] None Seen [facility] Work Phone: Urine specific gravity measu rementon 08-10-2022 Specific gravity (U) [Rel density] 1.010 1.002-1.030 [facility] Work Phone: Urobilinogen Auto test strip Ql (U)on 08-10-2022 Urobilinogen Ql (U) Normal mg/dl Normal [facility] Work Phone: Absolute lymphocyte counton 08-09-2022 Lymphocytes Auto (Unsp spec) [#/Vol] 1.31 10*3/uL 0.83-4.51 [facility] Work Phone: Basophil percentageon 2021 Basophils/100 WBC (Bld) 0.1 % 0-1 [facility] Work Phone: Bilirubin [Mass/Vol] 0.40 mg/dL 0.20-1.00 [facility] Work Phone: Comment on above: For patients on eltr ombopag therapy, use of Dimension Henry TBIL is not recommended. Chloride [Moles/Vol] 101 mmol/L 98-107 [facility] Work Phone: Eosinophils/100 WBC (Bld) 1.7 % 0-5 [facility] Work Phone: Glucose [Mass/Vol] 180 mg/dL 74-106 [facility] Work Phone: Comment on above: Fasting Glucose resu lt greater than or equal to 126 mg/dL suggests DIABETES MELLITUS per A.D.A. criteria. Neutrophils (Bld) [#/Vol] 10.3 10*3/uL 2.0-7.7 [facility] Work Phone: Neutrophils/100 WBC (Bld) 81.4 % 47-70 [facility] Work Phone: [phone] Potassium [Moles/Vol] 4.8 mmol/L 3.5-5.1 [facility] Work Phone: Comment on above: Moderate Hemolysis, Result may be falsely increased. Protein [Mass/Vol] 7.7 g/dL 6.4-8.2 [facility] Work Phone: [phone] Sodium [Moles/Vol] 138 mmol/L 136-145 [facility] Work Phone: [phone] WBC (Bld) [#/Vol] 12.7 10*3/uL 4.4-11.0 [facility] Work Phone: [phone] Blood erythrocytes count (nu mber/volume)on 08-09-2022 RBC (Bld) [#/Vol] 4.11 10*6/uL 4.2-5.4 [facility] Work Phone: [phone] Blood hemoglobin measurement (mass/volume)on 08-09-2022 Hemoglobin (Bld) [Mass/Vol] 11.6 g/dL 12.0-15.0 [facility] Work Phone: [phone] Blood lymphocytes/100 leukoc yteson 08-09-2022 Lymphocytes/100 WBC (Bld) 10.3 % 19-41 [facility] Work Phone: Blood monocytes/100 leukocyt eson 08-09-2022 Monocytes/100 WBC (Bld) 6.2 % 0-10 [facility] Work Phone: Blood platelet mean volumeon 08-09-2022 Platelet mean volume (Bld) [Entitic vol] 10.7 fL 6.2-12.0 [facility] Work Phone: [phone] Determination of erythrocyte mean corpuscular volume (MCV)on 08-09-2022 MCV (RBC) [Entitic vol] 89.3 fL 81-99 [facility] Work Phone: Direct bilirubinon Bilirubin.direct [Mass/Vol] 0.08 mg/dL 0.00-0.30 [facility] Work Phone: Hematocrit Auto (Bld) [Volum e fraction]on 08-09-2022 Hematocrit (Bld) [Volume fraction] 36.7 % 37-47 [facility] Work Phone: [phone] Laboratory - Chemistry and C hemistry - challengeon 08-09-2022 ALP [Catalytic activity/Vol] 63 U/L 45-117 [facility] Work Phone: ALT [Catalytic activity/Vol] 32 U/L 13-56 [facility] Work Phone: [phone] CO2 [Moles/Vol] 28.0 mmol/L 21.0-32.0 [facility] Work Phone: [phone] Globulin (S) [Mass/Vol] 4.1 g/dL 2.2-4.2 [facility] Work Phone: Lipase [Catalytic activity/Vol] 521 U/L 73-393 [facility] Work Phone: [phone] Urea nitrogen/Creatinine [Mass ratio] 23.9 mg/mg 10-20 [facility] Work Phone: [phone] Laboratory - Hematology and Cell countson 08-09-2022 Erythrocyte distribution width (RBC) [Entitic vol] 42.9 fL 35.1-43.9 [facility] Work Phone: [phone] Erythrocyte distribution width (RBC) [Ratio] 13.2 % 11.6-14.6 [facility] Work Phone: [phone] Immature granulocytes/100 WBC (Bld) 0.300 % 0.0-0.9 [facility] Work Phone: Comment on above: IG% - Immature Granu locytes (promyelocytes, myelocytes and metamyelocytes) > 1% indicates that a LEFT SHIFT is Present. MCH (RBC) [Entitic mass] 28.2 pg 27.0-32.0 [facility] Work Phone: Nucleated RBC/100 WBC (Bld) [Ratio] 0 % 0-5 [facility] Work Phone: MCHC Auto (RBC) [Mass/Vol]on 08-09-2022 MCHC (RBC) [Mass/Vol] 31.6 g/dL 32-36 [facility] Work Phone: No Panel Informationon 08-09 D-Dimer Quantitative (PE/DVT) 1.32 FEU/ug/m 0.27-0.49 [facility] Work Phone: Comment on above: D-Dimer ELEVATED (>0 .49): Additional studies and clinicalassessments are indicated to conclude diagnosis of:Deep Vein Thrombosis (DVT) or Pulmonary Embolism (PE)CRITICAL VALUE VERIFIED. CALLED TO EDMUND LLOYD08/09/22 2306 Robin Khalil.RESULTS READ BACK BY SAME . Estimated Creatinine Clearance Calc 48.00 ml/min [facility] Work Phone: Estimated GFR (MDRD) Amer 64 mL/min >60 [facility] Work Phone: Comment on above: GFR Calc Estimated GFR (MDRD) Non-Af Amer 53 mL/min >60 [facility] Work Phone: Comment on above: Non- GFR Calc Troponin I High Sensitivity 21 pg/mL 3.0-54.0 [facility] Work Phone: Comment on above: Please Note: New Mariah t Units and Gender Specific Reference Ranges. For more information see Policy Stat Procedure Henry High Sensitivity Troponin (TNIH) and attachments. Platelets bldon 08-09-2022 Platelets (Bld) [#/Vol] 134 10*3/uL 150-450 [facility] Work Phone: Serum or plasma albumin brando urement (mass/volume)on 08-09-2022 Albumin [Mass/Vol] 3.6 g/dL 3.2-5.0 [facility] Work Phone: Serum or plasma calcium brando urement (mass/volume)on 08-09-2022 Calcium [Mass/Vol] 8.9 mg/dL 8.5-10.1 [facility] Work Phone: Serum or plasma creatinine m easurement (mass/volume)on 08-09-2022 Creatinine [Mass/Vol] 1.13 mg/dL 0.55-1.02 [facility] Work Phone: Comment on above: The validity of the calculated GFR & GFRAA in patients over 70 years has not been determined. Clinical correlation is essential. Serum or plasma urea nitroge n measurement (mass/volume)on 08-09-2022 Urea nitrogen [Mass/Vol] 27 mg/dL 7-18 [facility] Work Phone: Thin prep Papanicolaou smear with manual screeningon 08-09-2022 Thin prep Papanicolaou smear with manual screening 30 U/L 15-37 [facility] Work Phone: Comment on above: Moderate Hemolysis, Result may be falsely increased. Thin prep Papanicolaou smear with manual screening 9 5-15 [facility] Work Phone: Whole blood hemoglobin A1c/t otal hemoglobin ratio (mass fraction)on 08-09-2022 HbA1c (Bld) [Mass fraction] 9.6 % 3.8-5.6 [facility] Work Phone: Comment on above: Normal < 5.7 % Predi abetic 5.7 - 6.4 % Diabetic >or= 6.5 % Please note range changes. GLUCOSE-POCTon 06-12-2021 Glucose [Mass/Vol] 224 mg/dL High 74 - 99 [facility] Comment on above: Performed By: #### G ANTHONY #### [id number] [place] [address] Order Reconciliationon 06-12 Order Reconciliation Page 1 Discharge Reconciliation Document Reconciliation Type: Discharge requested on behalf of Steve Mcmillan (Physician) done by Steve Mcmillan) Discharge - Reconciliation: 12-Jun-2021 10:32 by: Steve Mcmillan) Home Medications EnteredHOME MEDICATIONS AT DISCHARGE DateReconciliation Comment/ Additional Information Atarax 25 mg oral tablet 1 tab(s) orally once a day (at bedtime) 28-May-2021 09:51 Atarax 25 mg oral tablet 1 tab(s) orally once a day (at bedtime) 28-May-2021 09:51 Atarax 25 mg oral tablet is continued as Atarax 25 mg oral tablet Bentyl 10 mg oral capsule 1 cap(s) orally 4 times a day 28-May-2021 09:53 Bentyl 10 mg oral capsule 1 cap(s) orally 4 times a day 28-May-2021 09:53 Bentyl 10 mg oral capsule is continued as Bentyl 10 mg oral capsule Crestor 10 mg oral tablet 1 tab(s) orally once a day 28-May-2021 09:52 Crestor 10 mg oral tablet 1 tab(s) orally once a day 28-May-2021 09:52 Crestor 10 mg oral tablet is continued as Crestor 10 mg oral tablet fenofibrate 160 mg oral tablet 1 tab(s) orally once a day 28-May-2021 09:53 fenofibrate 160 mg oral tablet 1 tab(s) orally once a day 28-May-2021 09:53 fenofibrate 160 mg oral tablet is continued as fenofibrate 160 mg oral tablet Fish Oil oral capsule 1 cap(s) orally once a day 28-May-2021 09:51 Fish Oil oral capsule 1 cap(s) orally once a day 28-May-2021 09:51 Fish Oil oral capsule is continued as Fish Oil oral capsule Flonase 50 mcg/inh nasal spray 2 spray(s) nasal once a day 28-May-2021 09:52 Flonase 50 mcg/inh nasal spray 2 spray(s) nasal once a day 28-May-2021 09:52 Flonase 50 mcg/inh nasal spray is continued as Flonase 50 mcg/inh nasal spray HumaLOG 100 units/mL subcutaneous solution 10 unit(s) subcutaneous 3 times a day 28-May-2021 09:51 HumaLOG 100 units/mL subcutaneous solution 10 unit(s) subcutaneous 3 times a day 28-May-2021 09:51 HumaLOG 100 units/mL subcutaneous solution is continued as HumaLOG 100 units/mL subcutaneous solution hydroCHLOROthiazide 12.5 mg oral tablet 1 tab(s) orally once a day 28-May-2021 09:53 hydroCHLOROthiazide 12.5 mg oral tablet 1 tab(s) orally once a day 28-May-2021 09:53 hydroCHLOROthiazide 12.5 mg oral tablet is continued as hydroCHLOROthiazide 12.5 mg oral tablet Jardiance 25 mg oral tablet 1 tab(s) orally once a day (in the morning) 28-May-2021 09:50 Jardiance 25 mg oral tablet 1 tab(s) orally once a day (in the morning) 28-May-2021 09:50 Jardiance 25 mg oral tablet is continued as Jardiance 25 mg oral tablet lisinopril 2.5 mg oral tablet 1 tab(s) orally once a day 28-May-2021 09:50 lisinopril 2.5 mg oral tablet 1 tab(s) orally once a day 28-May-2021 09:50 lisinopril 2.5 mg oral tablet is continued as lisinopril 2.5 mg oral tablet Mobic 15 mg oral tablet 1 tab(s) orally once a day 28-May-2021 09:52 Mobic 15 mg oral tablet 1 tab(s) orally once a day 28-May-2021 09:52 Mobic 15 mg oral tablet is continued as Mobic 15 mg oral tablet Neurontin 300 mg oral capsule 1 cap(s) orally 2 times a day 28-May-2021 09:51 Neurontin 300 mg oral capsule 1 cap(s) orally 2 times a day 28-May-2021 09:51 Neurontin 300 mg oral capsule is continued as Neurontin 300 mg oral capsule Synthroid 175 mcg (0.175 mg) oral tablet 1 tab(s) orally once a day 28-May-2021 09:54 Synthroid 175 mcg (0.175 mg) oral tablet 1 tab(s) orally once a day 28-May-2021 09:54 Synthroid 175 mcg (0.175 mg) oral tablet is continued as Synthroid 175 mcg (0.175 mg) oral tablet Tresiba 100 units/mL subcutaneous solution 52 unit(s) subcutaneous once a day (at bedtime) 28-May-2021 09:52 Tresiba 100 units/mL subcutaneous solution 52 unit(s) subcutaneous once a day (at bedtime) 28-May-2021 09:52 Tresiba 100 units/mL subcutaneous solution is continued as Tresiba 100 units/mL subcutaneous solution Trulicity Pen 4.5 mg/0.5 mL subcutaneous solution subcutaneous once a week 28-May-2021 09:53 Trulicity Pen 4.5 mg/0.5 mL subcutaneous solution subcutaneous once a week 28-May-2021 09:53 Trulicity Pen 4.5 mg/0.5 mL subcutaneous solution is continued as Trulicity Pen 4.5 mg/0.5 mL subcutaneous solution vitamin E 1 tab(s) orally once a day 28-May-2021 09:50 vitamin E 1 tab(s) orally once a day 28-May-2021 09:50 vitamin E is continued as vitamin E Current OrdersDateHOME MEDICATIONS AT DISCHARGE DateReconciliation Comment/ Additional Information Acetaminophen Tablet (TYLENOL)DOSE = 975 mg Oral Once 04-Jun-2021 09:38 Acetaminophen is not required Artificial Tears (Preservative Free) SolutionDOSE = 1 drop(s) Left Eye Every 10 Minutes, PRN Dry EyesStop After 4 Doses 04-Jun-2021 09:38 Artificial Tears (Preservative Free) is not required Ketorolac 0.5% Ophthalmic. Solution (ACULAR)DOSE = 1 drop(s) Left Eye Every 10 MinutesStop After 4 Doses 04-Jun-2021 09:38 Ketorolac 0.5% Ophthalmic. is not required Lactated Ringers Infusion IV Bag Volume = 1,000 mL Run at: 100 mL/hr IntraVenous 11-Jun-2021 12:49 Lactated Ringer (more content not included)... Normal [facility] Preop Checkliston 06-12-2021 Preop Checklist Preop Checklist: Preop Checklist: Arrival [id number] Arrival Time10:00 Procedure Typeleft cataract Temperature C36.5 degrees C Temperature F97.8 degrees F Heart Rate71 beats per minute NPO [id number] 23:00 ID Band Onyes Allergy Bandyes Consent Signedyes H&P Completeyes Anesthesia Assessment Completedyes EKG Performednot ordered Chest X-Ray Performednot ordered HCG Urine TestN/A Chlorhexadine Bath Givennot applicable Nasal Antiseptic Appliednot applicable Hair Washednot applicable Soap and water bath with hair shampoo the night before surgerynot applicable Hat placed on prior to transportnot applicable SCD's Appliedno TERI Hose Appliednot ordered Denturesnot applicable Prostheticsnot applicable Hearing Aidsnot applicable Valuables Securedleft in patient room Glasses / Contactsleft in patient room Bowel Prepno Cardiovascular Assessment: Radial Pulsespalpable Extremitieswarm Respiratory Assessment: Respirationsunlabored Air Exchangegood, equal Breath Soundsclear Neurological Assessment: Level of Consciousnessalert Mobilitymoves all extremities Able to Express Selfyes Age Appropriateyes Emotional Statuscalm Skin Assessment: Skin Site(s) with Current Compromisenone Preop Education: Surgical Site Infection Preventionyes Pain Scales and Managementyes Language / Communication: Language / CommunicationEnglish Electronic Signatures: Emilia Najera (COLT) (Signed 12-Jun-2021 10:20) Authored: Preop Checklist Last Updated: 12-Jun-2021 10:20 by Emilia Najera (COLT) Normal [facility] CORONAVIRUS 2019, SCREEN ASY MPTOMATICon 06-07-2021 SARS-CoV-2 (COVID-19) RNA PATRICIA+probe Ql (Unsp spec) Not detected Normal Not Detected [facility] Comment on above: Result Comment: . This assay is designed to detect the N, ORF1ab and/or S genes of SARS-CoV-2 via nucleic acid amplification. A Negative (NOT DETECTED) result does not preclude 2019-nCoV infection since the adequacy of sample collection and/or low viral burden may result in presence of viral nucleic acids below the clinical sensitivity of this test method. Negative (NOT DETECTED) result should not be used as the sole basis for treatment or other patient management decisions. Rather negative results should be combined with clinical observations, patient history, and epidemiological information to make patient management decisions. Fact sheet for providers: https://www.fda.gov/media/434596/download Fact sheet for patients: https://www.fda.gov/media/086316/download This test has received FDA Emergency Use Authorization (EUA) and has been verified by [facility] ([facility]). This test is only authorized for the duration of time that circumstances exist to justify the authorization of the emergency use of in vitro diagnostic tests for the detection of SARS-CoV-2 virus and/or diagnosis of COVID-19 infection under section 564(b)(1) of the Act, 21 U.S.C. 360bbb-3(b)(1), unless the authorization is terminated or revoked sooner. [facility] is certified under CLIA-88 as qualified to perform high complexity testing. Testing is performed in the [facility] laboratories located at [address] [place] [address]. Performed By: #### C OVSC #### [place] [address] Lab Specimen Source Nasal, Nasopharyngeal Normal [facility] Comment on above: Performed By: #### C OVSC #### [place] [address] Covid 19 Resultson 1 SARS-CoV-2 (COVID-19) RNA PATRICIA+probe Ql (Unsp spec) NEGATIVE COVID-19 Test Coronaviruses are common world-wide and are the cause of many common colds. SARS-COV2 is a new coronavirus that began circulating worldwide in 2019 so we are calling it COVID-19. It has been estimated that four out of five patients with COVID-19 will recover at home without the need for medical attention. Symptoms of COVID-19 may include cough, fever, shortness of breath, loss of taste or smell and other flu-like symptoms including chills, sore muscles, sore throat, and headache. Severe illness is more common in older people and people with other health problems such as high blood pressure, obesity, and immune system problems. If the test is positive, you have COVID-19. You will be contacted by the ordering physicians office and instructed to remain on home isolation, in accordance with CDC guidelines. You may also be contacted by the [facility] to see if any of your close contacts may have been exposed to the virus and need to quarantine. If the test is negative, you likely do not have COVID-19 at this time, but you still may have a different illness that can spread to other people (like Influenza, or the Flu) and could still be at risk for getting COVID-19. We recommend that you stay away from other people to limit the spread of illness until your symptoms are improving and you are fever-free for 24 hours without the use of fever lowering medications such as acetaminophen or ibuprofen. No test is 100% accurate so if you are still concerned you may have COVID-19, talk to your doctor about the need to continue to stay away from others. Medicines Unless your provider told you not to use the following: Acetaminophen (Tylenol and others) is generally safe. Anti-inflammatory medications, such as Ibuprofen (Advil or Motrin) or Naproxen (Aleve) can also be used. Wbmq-anl-[id number] cough and cold medicines can be used according to the instructions on the package. Some [id number] medicines also contain acetaminophen. Make sure you are not taking more than your recommended dose. For those not hospitalized, there is no specific treatment available for this illness. Antibiotics do not treat Coronaviruses. Follow-Up Follow up with your doctor by scheduling a virtual visit or consider follow-up at one of our urgent care fever clinics. If you are having difficulty breathing, or are very weak and having difficulty standing, this is a medical emergency. Call 911 or have someone take you to the nearest emergency room immediately. If possible, wear a facemask. Additional guidance from the CDC for patients who tested POSITIVE for COVID-19 How to isolate: Isolate yourself in a specific room at home and limit your contact with others. Use a separate bathroom from other members of the household, when possible. Leave home only to get essential medical care. Do not go to work, school or public areas. Avoid using public transportation, ride-sharing, or taxis. Restrict contact with pets and other animals. If you must care for your pet or be around animals while you are sick, wash your hands before and after your interaction and wear a facemask. Make sure that shared spaces in the home have good airflow, such as by an air conditioner or an opened window, weather permitting. Personal Hygiene Procedures: Wear a face mask when in the same room as other people or pets. If a face mask interferes with your breathing, others should wear a mask when sharing space with you. Frequent hand-washing: wash your hands with soap and water for at least 20 seconds. If soap and water are not available, use alcohol-based hand waterway traffic checker. Avoid touching your eyes, nose, and mouth with unwashed hands. Household Hygiene Procedures: Avoid sharing personal household items such as dishes, glassware, cups, eating utensils, towels or bedding with other people or pets in your home. After use, these items should be washed with soap and hot water. Disinfect all high-touch surfaces every day with antibacterial cleaning solutions such as Lysol wipes, bleach, cleansers, etc. High-touch surfaces include tabletops, doorknobs, bathroom fixtures, toilets, phones, keyboards, tablets and bedside tables. Immediately clean any surfaces that may have blood, poop or body fluids on them, using antibacterial cleaning solutions such as Lysol wipes, bleach, cleansers, etc. If clothing or bedding come into contact with blood, poop or body fluids, they should be washed immediately. Follow the directions on the laundry detergent and clothing labels but hot water is recommended when possible. Stopping home isolation precautions: If possible, consult your doctor before stopping home isolation precautions. According to the CDC, you can discontinue home isolation precautions when you have met both of these criteria: Your fever and respiratory symptoms have been gone for 24 romeo (more content not included)... 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 (procedure may be cancelled if no high lift driver), center location, insurance information Prep Instructions Reviewedyes Instructed to Have No Fluids Aftermidnight Stated Reason for Admissioneye surgery Primary Contact Name and [phone] Other Contact Names and Numberssharon Patient Belongingsremains with patient Patient Belongings Remaining with Patientclothing; vision aids; at bedside; purse/wallet Medications Brought to Hospitalno General Health: Weight in kg90.6 kilogram(s) Weight in myt407.7 pound(s) Weight Methodactual (measured) Scale Typestanding Height in feet5 feet Height in inches4 inch(es) Height in cm162.5 centimeter(s) Height Methodstated BMI (kg/m2)34.31 square meter Patient or Family Member Reaction to Anesthesiano previous family member reaction; no previous reaction Blood Avoidance/Restrictionsno ne Health Mgmt: Symptoms/Conditions Managed at [facility] Are You Currently Breastfeedingno Barriers to Managing Healthnone Relationship/Environ: Resource/Environmental Concernsnone Anticipated Transition [place] Substance: Smoking Statusformer smoker Alcohol Useoccasionally Drug Usedenies Drug 2 Usedenies Risk Screens: COVID-19 Screening Completedno exposure or symptoms Travel or ExposureNO travel to International locations in the past 30 days Advance Directive/DNRno Advance Directive Information Givenpatient/family declined During the past month, have you often been bothered by feeling down, depressed or hopelessno During the past month, have you often had little interest or pleasure in doing thingsno Have you had any thoughts of harming anyone elseno Risk Screen Not Applicable/Able to Answerable to be screened In the Past Month: Have you wished you were or could go to sleep and not wake upno In the Past Month: Have you had any actual thoughts of killing yourselfno Lifetime: Have you ever done, started to do, or prepared to do anything to end your lifeno Are you or have you been threatened or abused physically,emotionally or sexually abused by anyoneno Do you feel UNSAFE going back to the place you are livingno Patient is Able to be Assessed for Learningyes Factors Influencing Readiness to Learninformation requested Factors that Impact Ability to Learnnone Devices/Methods Used to Communicatenone Learning Preferencesindividual instruction; written material Cultural Considerationsnone Developmental Considerationsnone Catholic Considerationsnone Other learner availableyes... Learnerfamily Factors Influencing Readiness to Learninterest in learning Factors that Impact Ability to Learnnone Devices/Methods Used to Communicatenone Learning Preferencesindividual instruction, written material Cultural Considerationsnone Developmental Considerationsnone Catholic Considerationsnone Falls RiskPatient location auto qualifies him/her for HIGH RISK. Are there any cultural, spiritual, christian practices/values/needs that are important for us to knowno Pain Scalenumerical 0-10 Pain Scale Educationteaching provided Current Pain Level0 = None Acceptable Pain Level3 = Mild Chronic Painno Information Review: Allergies, Home Meds and Significant Events have been Reviewed and Verified with Patient/Familyyes Allergy, Intolerance, Adverse Event: Intolerances: metformin: Drug, Diarrhea, Active Percocet: Drug, Dizziness, Active Electronic Signatures: Emilia Najera) (Signed 12-Jun-2021 10:06) Authored: Health Mgmt, Additional Information Ada Monterroso (RN) (Signed 03-Jun-2021 14:17) Authored: Initial Info, General Health, Relationship/Environ, Substance, Risk Screens, Additional Information Last Updated: 12-Jun-2021 10:06 by Emilia Najera (RN) References: 1. Data Referenced From Patient Profile - Preop v2 28-May-2021 10:03 Normal [facility] GLUCOSE-POCTon 05-29-2021 Glucose [Mass/Vol] 168 mg/dL High 74 - 99 [facility] Comment on above: Performed By: #### G ANTHONY ####[address] [address] HEMOGLOBIN A1Con 05-29-2021 Glucose [Mass/Vol] 232 mg/dL Normal [facility] Comment on above: Performed By: #### H BA1E ####[address] [address] HbA1c (Bld) [Mass fraction] 9.7 % Abnormal [facility] Comment on above: Result Comment: Diag nosis of Diabetes-Adults Non-Diabetic: < or = 5.6% Increased risk for developing diabetes: 5.7-6.4% Diagnostic of diabetes: > or = 6.5% . Monitoring of Diabetes Age (y) Therapeutic Goal (%) Adults: >18 <7.0 Pediatrics: 13-18 <7.5 7-12 <8.0 0- 6 7.5-8.5 [place] [employer]. Diabetes Care 33(S1), Oct 2009. Performed By: #### H BA1E ####[address] [address] Order Reconciliationon 05-29 Order Reconciliation Page 1 Discharge Reconciliation Document Reconciliation Type: Discharge requested on behalf of Steve Mcmillan (Physician) done by Steve Mcmillan) Discharge - Reconciliation: 29-May-2021 09:05 by: Steve Mcmillan) Home Medications EnteredHOME MEDICATIONS AT DISCHARGE DateReconciliation Comment/ Additional Information Atarax 25 mg oral tablet 1 tab(s) orally once a day (at bedtime) 25-Aug-2021 09:51 Atarax 25 mg oral tablet 1 tab(s) orally once a day (at bedtime) 28-May-2021 09:51 Atarax 25 mg oral tablet is continued as Atarax 25 mg oral tablet Bentyl 10 mg oral capsule 1 cap(s) orally 4 times a day 28-May-2021 09:53 Bentyl 10 mg oral capsule 1 cap(s) orally 4 times a day 28-May-2021 09:53 Bentyl 10 mg oral capsule is continued as Bentyl 10 mg oral capsule Crestor 10 mg oral tablet 1 tab(s) orally once a day 28-May-2021 09:52 Crestor 10 mg oral tablet 1 tab(s) orally once a day 28-May-2021 09:52 Crestor 10 mg oral tablet is continued as Crestor 10 mg oral tablet fenofibrate 160 mg oral tablet 1 tab(s) orally once a day 28-May-2021 09:53 fenofibrate 160 mg oral tablet 1 tab(s) orally once a day 28-May-2021 09:53 fenofibrate 160 mg oral tablet is continued as fenofibrate 160 mg oral tablet Fish Oil oral capsule 1 cap(s) orally once a day 28-May-2021 09:51 Fish Oil oral capsule 1 cap(s) orally once a day 28-May-2021 09:51 Fish Oil oral capsule is continued as Fish Oil oral capsule Flonase 50 mcg/inh nasal spray 2 spray(s) nasal once a day 28-May-2021 09:52 Flonase 50 mcg/inh nasal spray 2 spray(s) nasal once a day 28-May-2021 09:52 Flonase 50 mcg/inh nasal spray is continued as Flonase 50 mcg/inh nasal spray HumaLOG 100 units/mL subcutaneous solution 10 unit(s) subcutaneous 3 times a day 28-May-2021 09:51 HumaLOG 100 units/mL subcutaneous solution 10 unit(s) subcutaneous 3 times a day 28-May-2021 09:51 HumaLOG 100 units/mL subcutaneous solution is continued as HumaLOG 100 units/mL subcutaneous solution hydroCHLOROthiazide 12.5 mg oral tablet 1 tab(s) orally once a day 28-May-2021 09:53 hydroCHLOROthiazide 12.5 mg oral tablet 1 tab(s) orally once a day 28-May-2021 09:53 hydroCHLOROthiazide 12.5 mg oral tablet is continued as hydroCHLOROthiazide 12.5 mg oral tablet Jardiance 25 mg oral tablet 1 tab(s) orally once a day (in the morning) 28-May-2021 09:50 Jardiance 25 mg oral tablet 1 tab(s) orally once a day (in the morning) 28-May-2021 09:50 Jardiance 25 mg oral tablet is continued as Jardiance 25 mg oral tablet lisinopril 2.5 mg oral tablet 1 tab(s) orally once a day 28-May-2021 09:50 lisinopril 2.5 mg oral tablet 1 tab(s) orally once a day 28-May-2021 09:50 lisinopril 2.5 mg oral tablet is continued as lisinopril 2.5 mg oral tablet Mobic 15 mg oral tablet 1 tab(s) orally once a day 28-May-2021 09:52 Mobic 15 mg oral tablet 1 tab(s) orally once a day 28-May-2021 09:52 Mobic 15 mg oral tablet is continued as Mobic 15 mg oral tablet Neurontin 300 mg oral capsule 1 cap(s) orally 2 times a day 28-May-2021 09:51 Neurontin 300 mg oral capsule 1 cap(s) orally 2 times a day 28-May-2021 09:51 Neurontin 300 mg oral capsule is continued as Neurontin 300 mg oral capsule Synthroid 175 mcg (0.175 mg) oral tablet 1 tab(s) orally once a day 28-May-2021 09:54 Synthroid 175 mcg (0.175 mg) oral tablet 1 tab(s) orally once a day 28-May-2021 09:54 Synthroid 175 mcg (0.175 mg) oral tablet is continued as Synthroid 175 mcg (0.175 mg) oral tablet Tresiba 100 units/mL subcutaneous solution 52 unit(s) subcutaneous once a day (at bedtime) 28-May-2021 09:52 Tresiba 100 units/mL subcutaneous solution 52 unit(s) subcutaneous once a day (at bedtime) 28-May-2021 09:52 Tresiba 100 units/mL subcutaneous solution is continued as Tresiba 100 units/mL subcutaneous solution Trulicity Pen 4.5 mg/0.5 mL subcutaneous solution subcutaneous once a week 28-May-2021 09:53 Trulicity Pen 4.5 mg/0.5 mL subcutaneous solution subcutaneous once a week 28-May-2021 09:53 Trulicity Pen 4.5 mg/0.5 mL subcutaneous solution is continued as Trulicity Pen 4.5 mg/0.5 mL subcutaneous solution vitamin E 1 tab(s) orally once a day 28-May-2021 09:50 vitamin E 1 tab(s) orally once a day 28-May-2021 09:50 vitamin E is continued as vitamin E Current OrdersDateHOME MEDICATIONS AT DISCHARGE DateReconciliation Comment/ Additional Information Artificial Tears (Preservative Free) SolutionDOSE = 1 drop(s) Right Eye Every 10 Minutes, PRN Dry EyesStop After 4 Doses 22-May-2021 07:10 Artificial Tears (Preservative Free) is not required Ketorolac 0.5% Ophthalmic. Solution (ACULAR)DOSE = 1 drop(s) Right Eye Every 10 MinutesStop After 4 Doses 22-May-2021 07:10 Ketorolac 0.5% Ophthalmic. is not required Lactated Ringers Infusion IV Bag Volume = 1,000 mL Run at: 100 mL/hr IntraVenous 28-May-2021 10:27 Lactated Ringers Infusion is not required Lidocaine 1% - Phenylephrine 1.5% Intravitreal SolutionDOSE = 2 mL Intr (more content not included)... Normal [facility] Preop Checkliston 05-29-2021 Preop Checklist Preop Checklist: Preop Checklist: Arrival [id number] Arrival Time08:41 Procedure Typeright eye cataract surgery Temperature C36.3 degrees C Temperature F97.3 degrees F Heart Rate70 beats per minute Respiratory Rate14 breath per minute Blood Pressure Mcqqmgrs599 mm/Hg Blood Pressure Elnzjiaoj72 mm/Hg NPO [id number] 22:30 ID Band Onyes Allergy Bandyes Consent Signedyes H&P Completeyes Anesthesia Assessment Completedyes EKG Performednot ordered Chest X-Ray Performednot ordered HCG Urine TestN/A Chlorhexadine Bath Givennot applicable Nasal Antiseptic Appliednot applicable Hair Washednot applicable Soap and water bath with hair shampoo the night before surgerynot applicable Hat placed on prior to transportnot applicable SCD's Appliednot applicable TERI Hose Appliednot ordered Denturesnot applicable Prostheticsnot applicable Hearing Aidsnot applicable Valuables Securedleft in patient room Glasses / Contactsleft in patient room Bowel Prepno Cardiovascular Assessment: Apicalregular Extremitieswarm Respiratory Assessment: Respirationsunlabored Air Exchangeequal Breath Soundsclear Neurological Assessment: Level of Consciousnessalert Mobilitymoves all extremities Able to Express Selfyes Age Appropriateyes Emotional Statuscalm Skin Assessment: Skin Site(s) with Current Compromiseshin Description of Skin Issues/Concernsscabbed area mid jacobs Preop Education: Surgical Site Infection Preventionyes Pain Scales and Managementyes Language / Communication: Language / CommunicationEnglish Electronic Signatures: Croina Nunes (RN) (Signed 29-May-2021 09:31) Authored: Preop Checklist Last Updated: 29-May-2021 09:31 by Corina Nunes (RN) [facility] CORONAVIRUS 2019, SCREEN ASY MPTOMATICon 05-28-2021 SARS-CoV-2 (COVID-19) RNA PATRICIA+probe Ql (Unsp spec) Not detected Normal Not Detected [facility] Comment on above: Result Comment: . This assay is designed to detect the N, ORF1ab and/or S genes of SARS-CoV-2 via nucleic acid amplification. A Negative (NOT DETECTED) result does not preclude 2019-nCoV infection since the adequacy of sample collection and/or low viral burden may result in presence of viral nucleic acids below the clinical sensitivity of this test method. Negative (NOT DETECTED) result should not be used as the sole basis for treatment or other patient management decisions. Rather negative results should be combined with clinical observations, patient history, and epidemiological information to make patient management decisions. Fact sheet for providers: https://www.fda.gov/media/294189/download Fact sheet for patients: https://www.fda.gov/media/560102/download This test has received FDA Emergency Use Authorization (EUA) and has been verified by [facility] ([facility]). This test is only authorized for the duration of time that circumstances exist to justify the authorization of the emergency use of in vitro diagnostic tests for the detection of SARS-CoV-2 virus and/or diagnosis of COVID-19 infection under section 564(b)(1) of the Act, 21 U.S.C. 360bbb-3(b)(1), unless the authorization is terminated or revoked sooner. [facility] is certified under CLIA-88 as qualified to perform high complexity testing. Testing is performed in the [facility] laboratories [place] [address] [place] [address]. Performed By: #### C OVSC #### [facility] [id number] [place] [address]. [place] [address] Covid 19 Resultson 1 SARS-CoV-2 (COVID-19) RNA PATRICIA+probe Ql (Unsp spec) NEGATIVE COVID-19 Test Coronaviruses are common world-wide and are the cause of many common colds. SARS-COV2 is a new coronavirus that began circulating worldwide in 2019 so we are calling it COVID-19. It has been estimated that four out of five patients with COVID-19 will recover at home without the need for medical attention. Symptoms of COVID-19 may include cough, fever, shortness of breath, loss of taste or smell and other flu-like symptoms including chills, sore muscles, sore throat, and headache. Severe illness is more common in older people and people with other health problems such as high blood pressure, obesity, and immune system problems. If the test is positive, you have COVID-19. You will be contacted by the ordering physicians office and instructed to remain on home isolation, in accordance with CDC guidelines. You may also be contacted by the [facility] to see if any of your close contacts may have been exposed to the virus and need to quarantine. If the test is negative, you likely do not have COVID-19 at this time, but you still may have a different illness that can spread to other people (like Influenza, or the Flu) and could still be at risk for getting COVID-19. We recommend that you stay away from other people to limit the spread of illness until your symptoms are improving and you are fever-free for 24 hours without the use of fever lowering medications such as acetaminophen or ibuprofen. No test is 100% accurate so if you are still concerned you may have COVID-19, talk to your doctor about the need to continue to stay away from others. Medicines Unless your provider told you not to use the following: Acetaminophen (Tylenol and others) is generally safe. Anti-inflammatory medications, such as Ibuprofen (Advil or Motrin) or Naproxen (Aleve) can also be used. Cgod-igf-buepbeg cough and cold medicines can be used according to the instructions on the package. Some jhcc-cfw-xaztxkm medicines also contain acetaminophen. Make sure you are not taking more than your recommended dose. For those not hospitalized, there is no specific treatment available for this illness. Antibiotics do not treat Coronaviruses. Follow-Up Follow up with your doctor by scheduling a virtual visit or consider follow-up at one of our urgent care fever clinics. If you are having difficulty breathing, or are very weak and having difficulty standing, this is a medical emergency. Call 911 or have someone take you to the nearest emergency room immediately. If possible, wear a facemask. Additional guidance from the CDC for patients who tested POSITIVE for COVID-19 How to isolate: Isolate yourself in a specific room at home and limit your contact with others. Use a separate bathroom from other members of the household, when possible. Leave home only to get essential medical care. Do not go to work, school or public areas. Avoid using public transportation, ride-sharing, or taxis. Restrict contact with pets and other animals. If you must care for your pet or be around animals while you are sick, wash your hands before and after your interaction and wear a facemask. Make sure that shared spaces in the home have good airflow, such as by an air conditioner or an opened window, weather permitting. Personal Hygiene Procedures: Wear a face mask when in the same room as other people or pets. If a face mask interferes with your breathing, others should wear a mask when sharing space with you. Frequent hand-washing: wash your hands with soap and water for at least 20 seconds. If soap and water are not available, use alcohol-based hand waterway traffic checker. Avoid touching your eyes, nose, and mouth with unwashed hands. Household Hygiene Procedures: Avoid sharing personal household items such as dishes, glassware, cups, eating utensils, towels or bedding with other people or pets in your home. After use, these items should be washed with soap and hot water. Disinfect all high-touch surfaces every day with antibacterial cleaning solutions such as Lysol wipes, bleach, cleansers, etc. High-touch surfaces include tabletops, doorknobs, bathroom fixtures, toilets, phones, keyboards, tablets and bedside tables. Immediately clean any surfaces that may have blood, poop or body fluids on them, using antibacterial cleaning solutions such as Lysol wipes, bleach, cleansers, etc. If clothing or bedding come into contact with blood, poop or body fluids, they should be washed immediately. Follow the directions on the laundry detergent and clothing labels but hot water is recommended when possible. Stopping home isolation precautions: If possible, consult your doctor before stopping home isolation precautions. According to the CDC, you can discontinue home isolation precautions when you have met both of these criteria: Your fever and respiratory symptoms have been gone for 24 romeo (more content not included)... Normal [facility] Patient Profile - Preop v2on 05-28-2021 Patient Profile - Preop v2 Profile: Initial Info: How to be Addressedfay Spoken Language PreferredEnglish Source of Informationpatient Instructions Givenappropriate clothing, bring responsible adult as the high lift driver (procedure may be cancelled if no high lift driver), center location, insurance information Prep Instructions Reviewedyes Instructed to Have No Fluids Aftermidnight Stated Reason for Admissioneye surgery Primary Contact Name and [phone] Other Contact Names and Numberssharon Patient Belongingsremains with patient Patient Belongings Remaining with Patientclothing; vision aids; at bedside; purse/wallet Medications Brought to Hospitalno General Health: Weight in kg90.6 kilogram(s) Weight in vsh493.7 pound(s) Weight Methodactual (measured) Scale Typestanding Height in feet5 feet Height in inches4 inch(es) Height in cm162.5 centimeter(s) Height Methodstated BMI (kg/m2)34.31 square meter Patient or Family Member Reaction to Anesthesiano previous family member reaction; no previous reaction Blood Avoidance/Restrictionsno ne Relationship/Environ: Resource/Environmental Concernsnone [facility] Sub[facility]: Smoking Statusformer smoker Alcohol Useoccasionally Drug Usedenies Drug 2 Usedenies Risk Screens: COVID-19 Screening Completedno exposure or symptoms Travel or ExposureNO travel to International locations in the past 30 days Advance Directive/DNRno During the past month, have you often been bothered by feeling down, depressed or hopelessno During the past month, have you often had little interest or pleasure in doing thingsno Have you had any thoughts of harming anyone elseno Risk Screen Not Applicable/Able to Answerable to be screened In the Past Month: Have you wished you were or could go to sleep and not wake upno In the Past Month: Have you had any actual thoughts of killing yourselfno Lifetime: Have you ever done, started to do, or prepared to do anything to end your lifeno Are you or have you been threatened or abused physically,emotionally or sexually abused by anyoneno Do you feel UNSAFE going back to the place you are livingno Patient is Able to be Assessed for Learningyes Factors Influencing Readiness to Learninformation requested Factors that Impact Ability to Learnnone Devices/Methods Used to Communicatenone Learning Preferencesindividual instruction; written material Cultural Considerationsnone Developmental Considerationsnone Catholic Considerationsnone Other learner availableyes... Learnerfamily Factors Influencing Readiness to Learninterest in learning Factors that Impact Ability to Learnnone Devices/Methods Used to Communicatenone Learning Preferencesindividual instruction, written material Cultural Considerationsnone Developmental Considerationsnone Catholic Considerationsnone Falls RiskPatient location auto qualifies him/her for HIGH RISK. Are there any cultural, spiritual, christian practices/values/needs that are important for us to knowno Pain Scalenumerical 0-10 Pain Scale Educationteaching provided Current Pain Level0 = None Acceptable Pain Level3 = Mild Chronic Painno Information Review: Allergies, Home Meds and Significant Events have been Reviewed and Verified with Patient/Familyyes Allergy, Intolerance, Adverse Event: Intolerances: metformin: Drug, Diarrhea, Active Percocet: Drug, Dizziness, Active Problem List: Medical History: OA (osteoarthritis): Catalog Name: Unspecified osteoarthritis, unspecified site Hypothyroidism: Catalog Name: Hypothyroidism, unspecified Hypercholesterolemia: Catalog Name: Pure hypercholesterolemia, unspecified Hypertension: Catalog Name: Essential (primary) hypertension Diabetes mellitus: Catalog Name: Type 2 diabetes mellitus without complications Surg History: History of tubal ligation: Catalog Name: Tubal ligation status History of 2 sections: Catalog Name: History of uterine scar from previous surgery History of appendectomy: Catalog Name: Acquired absence of other specified parts of digestive tract Electronic Signatures: Corina Nunes) (Signed 29-May-2021 09:05) Authored: Initial Info, General Health, Relationship/Environ, Risk Screens, Additional Information Ada Monterroso (RN) (Signed 28-May-2021 10:07) Authored: Initial Info, General Health, Substance, Risk Screens, Additional Information Last Updated: 29-May-2021 09:05 by Corina Nunes (COLT) [facility] CORONAVIRUS 2019, SCREEN ASY MPTOMATICon 05-27-2021 Lab Specimen Source Nasal, Nasopharyngeal Normal [facility] Comment on above: Performed By: #### C OVSC #### [facility] [address] [place] [address] CURon 02-23-2019 CUR . MICRO - Microbiology PROCEDURE: Urine Culture [*1] SOURCE: Urine, Clean Catch BODY SITE: COLLECTED DATE/TIME: 02/20/2019 17:58 EDT RECEIVED DATE/TIME: 02/21/2019 15:00 EDT START DATE/TIME: 02/21/2019 15:00 EDT FREE TEXT SOURCE: FINAL REPORTS Final Report [] Verified Date/Time/Personnel: 02/23/2019 08:09 EDT 50,000 organisms per mL Mixed without predominant isolate(s). Sensitivity Testing not indicated. Probably contamination. Repeat culture suggested. PRELIMINARY REPORTS Preliminary Report [] Verified Date/Time/Personnel: 02/22/2019 13:50 EDT Culture results pending. Performing Locations *1: This test was performed at: [facility], [address] [place] [address], [address] [place] [address] ([place]) Comment on above: Performed By: #### C UR #### [place] [address] .Urinalysis Microscopic (AO) on 02-20-2019 RBC #/vol (U) 0-5 None Seen [facility] ([place] Comment on above: Performed By: #### U A, UAMICAO #### [place] [address] UA Bacteria Trace [facility] ([place] Comment on above: Performed By: #### U A, UAMICAO #### [place] [address] UA Squam Epithelial 0-5 None [facility]en [facility] [place] Comment on above: Performed By: #### U A, UAMICAO #### [place] [address] UA WBC 10-15 None Seen [facility] ([place] Comment on above: Performed By: #### U A, UAMICAO #### [place] [address] UAon 02-20-2019 Color Nom (U) Yellow Normal [facility] ([place]) Comment on above: Performed By: #### U A, UAMICAO #### [place] [address] Glucose mass conc (U) 500 mg/dL Negative [facility] ([place]) Comment on above: Performed By: #### U A, UAMICAO #### [place] [address] Ketones Ql (U) Negative Normal Negative [facility] ([place]) Comment on above: Performed By: #### U A, UAMICAO #### [place] [address] UA Appear Clear Normal Clear [facility] ([place] Comment on above: Performed By: #### U A, UAMICAO #### [place] [address] UA Blood Negative Normal Negative [facility] ([place] Comment on above: Performed By: #### U A, UAMICAO #### [place] [address] UA Leuk Est Negative Normal Negative [facility] ([place] Comment on above: Performed By: #### U A, UAMICAO #### [place] [address] UA Nitrite Negative Normal Negative [facility] ([place] Comment on above: Performed By: #### U A, UAMICAO #### [place] [address] UA pH 6.5 Normal 5.0 - 8.0 [facility] ([place] Comment on above: Performed By: #### U A, UAMICAO #### [place] [id number] [place] [address] UA Protein Negative Normal Negative [facility] ([place] Comment on above: Performed By: #### U A, UAMICAO #### [place] [id number] [place] [address] UA Spec Grav 1.015 Normal 1.015-1.025 [facility] ([place] Comment on above: Performed By: #### U A, UAMICAO #### [address] [address] UA Specimen Type Clean Catch Normal [facility] ([place] Comment on above: Performed By: #### U A, UAMICAO #### [place] [id number] UA Urobilinogen 0.2 E.U./dL Normal 0.2-1.0 [facility] ([place] Comment on above: Performed By: #### U A, UAMICAO #### [place] [address] Urobilinogen Qn (U) Negative Normal Negative [facility] [place] Comment on above: Performed By: #### U A, UAMICAO #### [address] [address] No Panel Information [facility] Vital Signs Date Time Vital Sign Value Performing Clinician Facility 07-12-2025 14:52-0400 Body temperature 97 [degF] Dr. Sarina Adams MD Work Phone: [facility] 07-12-2025 14:52-0400 Diastolic blood pressure 55 mm[Hg] Dr. Sarina Adams MD Work Phone: [facility] 07-12-2025 14:52-0400 Heart rate 71 /min Dr. Sarina Adams MD Work Phone: [facility] 07-12-2025 14:52-0400 Inhaled oxygen flow rate 2 L/min Dr. Sarina Adams MD Work Phone: [facility] 07-12-2025 14:52-0400 Respiratory rate 18 /min Dr. Sarina Adams MD Work Phone: 6(485)531-759317 [place] [address] 07-12-2025 14:52-0400 SaO2% (BldA) [Mass fraction] 94 % Dr. Sarina Adams MD Work Phone: 8(436)869-282917 [place] [address] 07-12-2025 14:52-0400 Systolic blood pressure 118 mm[Hg] Dr. Sarina Adams MD Work Phone: 0(326)[phone] [place] [address] 07-12-2025 06:00-0400 Body mass index (BMI) [Ratio] 44.6 kg/m2 Dr. Sarina Adams MD Work Phone: 9(439)704-229517 [place] [address] 07-12-2025 06:00-0400 Body weight 117.[address] Sarina Adams MD Work Phone: 2(267)761-831617 [place] [address] 07-10-2025 14:43-0400 Body height 162.[address] Sarina Adams MD Work Phone: 7(020)714-697417 [place] [address] 07-09-2025 18:23-0400 Body temperature 99 [degF] Dr. Sarina Adams MD Work Phone: 1(132)389-433517 [place] [address] 07-09-2025 18:23-0400 Diastolic blood pressure 73 mm[Hg] Dr. Sarina Adams MD Work Phone: 6(239)904-122417 [place] [address] 07-09-2025 18:23-0400 Heart rate 71 /min Dr. Sarina Adams MD Work Phone: 0(809)160-467717 [place] [address] 07-09-2025 18:23-0400 Respiratory rate 19 /min Dr. Sarina Adams MD Work Phone: 6(498)498-296817 [place] [address] 07-09-2025 18:23-0400 SaO2% (BldA) [Mass fraction] 99 % Dr. Sarina Adams MD Work Phone: 8(393)350-251417 [place] [address] 07-09-2025 18:23-0400 Systolic blood pressure 181 mm[Hg] Dr. Sarina Adams MD Work Phone: [facility] 07-09-2025 18:15-0400 Inhaled oxygen flow rate 2 L/min Dr. Sarina Adams MD Work Phone: [facility] 07-09-2025 16:41-0400 Body mass index (BMI) [Ratio] 47.5 kg/m2 Dr. Sarina Adams MD Work Phone: [facility] 07-09-2025 16:41-0400 Body weight 121.[address] Sarina Adams MD Work Phone: [facility] 07-09-2025 16:21-0400 Body height 160.[address] Sarina Adams MD Work Phone: [facility] 05-29-2025 14:54-0400 Body mass index (BMI) [Ratio] 42.12 kg/m2 Denise Alvarado [employer]RIMP PACKER.QUALITY ASSURANCE PRACTICE MANAGER Work Phone: [facility] 05-29-2025 14:54-0400 Body weight 112.6 kg Denise Alvarado SHRIMP PACKER.QUALITY ASSURANCE PRACTICE MANAGER Work Phone: [facility] 05-29-2025 14:54-0400 Diastolic blood pressure 62 mm[Hg] Denise Alvarado SHRIMP PACKER.QUALITY ASSURANCE PRACTICE MANAGER Work Phone: [facility] 05-29-2025 14:54-0400 Heart rate 76 /min Denise Alvarado SHRIMP PACKER.QUALITY ASSURANCE PRACTICE MANAGER Work Phone: [facility] 05-29-2025 14:54-0400 Respiratory rate 16 /min Denise Alvarado SHRIMP PACKER.QUALITY ASSURANCE PRACTICE MANAGER Work Phone: [facility] 05-29-2025 14:54-0400 SaO2% (BldA) [Mass fraction] 98 % Denise Alvarado SHRIMP PACKER.QUALITY ASSURANCE PRACTICE MANAGER Work Phone: [facility] 05-29-2025 14:54-0400 Systolic blood pressure 122 mm[Hg] Denise Alvarado SHRIMP PACKER.QUALITY ASSURANCE PRACTICE MANAGER Work Phone: [facility] 05-22-2025 14:56-0400 Body mass index (BMI) [Ratio] 46.01 kg/m2 Denise Alvarado SHRIMP PACKER.QUALITY ASSURANCE PRACTICE MANAGER Work Phone: [facility] 05-22-2025 14:56-0400 Body weight 123 kg Denise Alvarado SHRIMP PACKER.QUALITY ASSURANCE PRACTICE MANAGER Work Phone: [facility] 05-22-2025 14:56-0400 Diastolic blood pressure 79 mm[Hg] Denise Alvarado SHRIMP PACKER.QUALITY ASSURANCE PRACTICE MANAGER Work Phone: [facility] 05-22-2025 14:56-0400 Heart rate 66 /min Denise Alvarado SHRIMP PACKER.QUALITY ASSURANCE PRACTICE MANAGER Work Phone: [facility] 05-22-2025 14:56-0400 Respiratory rate 16 /min Denise Alvarado SHRIMP PACKER.QUALITY ASSURANCE PRACTICE MANAGER Work Phone: [facility] 05-22-2025 14:56-0400 Systolic blood pressure 118 mm[Hg] Denise Alvarado SHRIMP PACKER.QUALITY ASSURANCE PRACTICE MANAGER Work Phone: [facility] 03-28-2025 15:07-0400 Body mass index (BMI) [Ratio] 42.08 kg/m2 Cole Cheli SHRIMP PACKER.ADVISORY SOFTWARE ENGINEER Work Phone: [facility] 03-28-2025 15:07-0400 Body weight 112.5 kg Coel Cheli SHRIMP PACKER.ADVISORY SOFTWARE ENGINEER Work Phone: [facility] 03-28-2025 15:07-0400 Diastolic blood pressure 54 mm[Hg] Cole Cheli SHRIMP PACKER.ADVISORY SOFTWARE ENGINEER Work Phone: [facility] 03-28-2025 15:07-0400 Heart rate 73 /min Cole Cheli SHRIMP PACKER.ADVISORY SOFTWARE ENGINEER Work Phone: [facility] 03-28-2025 15:07-0400 SaO2% (BldA) [Mass fraction] 94 % Cole Cheli SHRIMP PACKER.ADVISORY SOFTWARE ENGINEER Work Phone: [facility] Comment on above: O2 at 2 L/M 03-28-2025 15:07-0400 Systolic blood pressure 112 mm[Hg] Cole Cheli SHRIMP PACKER.ADVISORY SOFTWARE ENGINEER Work Phone: [facility] 12-25-2024 14:27-0400 Body height 163.5 cm Pulm Wstr Work Phone: [facility] 12-25-2024 14:27-0400 Body mass index (BMI) [Ratio] 43.1 kg/m2 Pulm Wstr Work Phone: [facility] 12-25-2024 14:27-0400 Body weight 115.21 kg Pulm Wstr Work Phone: [facility] 12-25-2024 14:27-0400 Heart rate 64 /min Pulm Wstr Work Phone: [facility] 12-25-2024 14:27-0400 Respiratory rate 16 /min Pulm Wstr Work Phone: [facility] 12-25-2024 14:27-0400 SaO2% (BldA) [Mass fraction] 98 % Pulm Wstr Work Phone: [facility] 12-08-2024 14:30-0500 Body mass index (BMI) [Ratio] 43.1 kg/m2 Denise Alvarado SHRIMP PACKER.QUALITY ASSURANCE PRACTICE MANAGER Work Phone: [facility] 12-08-2024 14:30-0500 Body weight 113.9 kg Denise Alvarado SHRIMP PACKER.QUALITY ASSURANCE PRACTICE MANAGER Work Phone: [facility] 12-08-2024 14:30-0500 Diastolic blood pressure 67 mm[Hg] Denise Alvarado SHRIMP PACKER.QUALITY ASSURANCE PRACTICE MANAGER Work Phone: [facility] 12-08-2024 14:30-0500 Heart rate 74 /min Denise Alvarado SHRIMP PACKER.QUALITY ASSURANCE PRACTICE MANAGER Work Phone: [facility] 12-08-2024 14:30-0500 Systolic blood pressure 115 mm[Hg] Denise Alvarado SHRIMP PACKER.QUALITY ASSURANCE PRACTICE MANAGER Work Phone: [facility] 12-06-2024 13:54-0500 Diastolic blood pressure 64 mm[Hg] Brooke Be PA-C Work Phone: [facility] 12-06-2024 13:54-0500 Systolic blood pressure 122 mm[Hg] Brooke Be PA-C Work Phone: [facility] 11-28-2024 15:49-0500 Body height 162.6 cm Sally [place] MD Work Phone: [facility] 11-28-2024 15:49-0500 Body mass index (BMI) [Ratio] 43.62 kg/m2 Sally [place] MD Work Phone: [facility] 11-28-2024 15:49-0500 Body weight 115.27 kg Sally [place] MD Work Phone: [facility] 11-28-2024 15:49-0500 Diastolic blood pressure 74 mm[Hg] Sally [place] MD Work Phone: [facility] 11-28-2024 15:49-0500 Heart rate 75 /min Sally [place] MD Work Phone: [facility] 11-28-2024 15:49-0500 SaO2% (BldA) [Mass fraction] 96 % Sally [place] MD Work Phone: [facility] Comment on above: 2L O2 nc 11-28-2024 15:49-0500 Systolic blood pressure 125 mm[Hg] [place] MD Work Phone: [facility] 10-16-2024 14:08-0500 Body height 162.6 cm Ramesh Brewster MD Work Phone: [facility] 10-16-2024 14:08-0500 Body mass index (BMI) [Ratio] 42.4 kg/m2 Ramesh Brewster MD Work Phone: [facility] 10-16-2024 14:08-0500 Body weight 112.04 kg Ramesh Brewster MD Work Phone: [facility] 10-16-2024 14:08-0500 Diastolic blood pressure 70 mm[Hg] Ramesh Brewster MD Work Phone: [facility] 10-16-2024 14:08-0500 Heart rate 72 /min Ramesh Brewster MD Work Phone: [facility] 10-16-2024 14:08-0500 Respiratory rate 14 /min Ramesh Brewster MD Work Phone: [facility] 10-16-2024 14:08-0500 SaO2% (BldA) [Mass fraction] 94 % Ramesh Brewster MD Work Phone: [facility] 10-16-2024 14:08-0500 Systolic blood pressure 146 mm[Hg] Ramesh Brewster MD Work Phone: [facility] 06-14-2024 13:44-0400 Body mass index (BMI) [Ratio] 38.41 kg/m2 Cole Cheli SHRIMP PACKER.ADVISORY SOFTWARE ENGINEER Work Phone: [facility] 06-14-2024 13:44-0400 Body weight 101.5 kg Cole Cheli SHRIMP PACKER.ADVISORY SOFTWARE ENGINEER Work Phone: [facility] 06-14-2024 13:44-0400 Diastolic blood pressure 60 mm[Hg] Cole Cheli SHRIMP PACKER.ADVISORY SOFTWARE ENGINEER Work Phone: [facility] 06-14-2024 13:44-0400 Heart rate 79 /min Cole Cheli SHRIMP PACKER.ADVISORY SOFTWARE ENGINEER Work Phone: [facility] 06-14-2024 13:44-0400 SaO2% (BldA) [Mass fraction] 98 % Cole Cheli SHRIMP PACKER.ADVISORY SOFTWARE ENGINEER Work Phone: [facility] Comment on above: on 2 l/m of O2 06-14-2024 13:44-0400 Systolic blood pressure 100 mm[Hg] Cole Cheli SHRIMP PACKER.ADVISORY SOFTWARE ENGINEER Work Phone: [facility] 06-08-2024 13:38-0400 Body mass index (BMI) [Ratio] 38.07 kg/m2 Denise Alvarado SHRIMP PACKER.QUALITY ASSURANCE PRACTICE MANAGER Work Phone: [facility] 06-08-2024 13:38-0400 Body weight 100.6 kg Denise Alvarado SHRIMP PACKER.QUALITY ASSURANCE PRACTICE MANAGER Work Phone: [facility] 06-08-2024 13:38-0400 Diastolic blood pressure 66 mm[Hg] Denise Alvarado SHRIMP PACKER.QUALITY ASSURANCE PRACTICE MANAGER Work Phone: [facility] 06-08-2024 13:38-0400 Heart rate 66 /min Denise Alvarado SHRIMP PACKER.QUALITY ASSURANCE PRACTICE MANAGER Work Phone: [facility] 06-08-2024 13:38-0400 Respiratory rate 16 /min Denise Alvarado SHRIMP PACKER.QUALITY ASSURANCE PRACTICE MANAGER Work Phone: [facility] 06-08-2024 13:38-0400 SaO2% (BldA) [Mass fraction] 99 % Denise Alvarado SHRIMP PACKER.QUALITY ASSURANCE PRACTICE MANAGER Work Phone: [facility] 06-08-2024 13:38-0400 Systolic blood pressure 102 mm[Hg] Denise Alvarado SHRIMP PACKER.QUALITY ASSURANCE PRACTICE MANAGER Work Phone: [facility] 05-16-2024 13:29-0400 Body height 162.6 cm Cole Cheli SHRIMP PACKER.ADVISORY SOFTWARE ENGINEER Work Phone: [facility] 05-16-2024 13:29-0400 Body mass index (BMI) [Ratio] 42.53 kg/m2 Cole Cheli SHRIMP PACKER.ADVISORY SOFTWARE ENGINEER Work Phone: [facility] 05-16-2024 13:29-0400 Body weight 112.4 kg Cole Cheli SHRIMP PACKER.ADVISORY SOFTWARE ENGINEER Work Phone: [facility] 05-16-2024 13:29-0400 Diastolic blood pressure 62 mm[Hg] Cole Cheli SHRIMP PACKER.ADVISORY SOFTWARE ENGINEER Work Phone: [facility] 05-16-2024 13:29-0400 Heart rate 73 /min Cole Cheli SHRIMP PACKER.ADVISORY SOFTWARE ENGINEER Work Phone: [facility] 05-16-2024 13:29-0400 Respiratory rate 18 /min Cole Cheli SHRIMP PACKER.ADVISORY SOFTWARE ENGINEER Work Phone: [facility] 05-16-2024 13:29-0400 SaO2% (BldA) [Mass fraction] 90 % Cole Cheli SHRIMP PACKER.ADVISORY SOFTWARE ENGINEER Work Phone: [facility] Comment on above: on O2 at 2 liters via [place] 05-16-2024 13:29-0400 Systolic blood pressure 140 mm[Hg] Cole Cheli SHRIMP PACKER.ADVISORY SOFTWARE ENGINEER Work Phone: [facility] 03-07-2024 13:59-0400 Body mass index (BMI) [Ratio] 38.79 kg/m2 Brooke Be PA-C Work Phone: [facility] 03-07-2024 13:59-0400 Body weight 102.51 kg Brooke Be PA-C Work Phone: [facility] 02-21-2024 13:34-0400 Body height 162.6 cm Ramesh Brewster MD Work Phone: [facility] 02-21-2024 13:34-0400 Body mass index (BMI) [Ratio] 40.1 kg/m2 Ramesh Brewster MD Work Phone: [facility] 02-21-2024 13:34-0400 Body weight 105.96 kg Ramesh Brewster MD Work Phone: [facility] 02-21-2024 13:34-0400 Diastolic blood pressure 52 mm[Hg] Ramesh Brewster MD Work Phone: [facility] 02-21-2024 13:34-0400 Heart rate 66 /min Ramesh Brewster MD Work Phone: [facility] 02-21-2024 13:34-0400 SaO2% (BldA) [Mass fraction] 97 % Ramesh Brewster MD Work Phone: [facility] 02-21-2024 13:34-0400 Systolic blood pressure 99 mm[Hg] Ramesh Brewster MD Work Phone: [facility] 02-11-2024 13:51-0400 Body mass index (BMI) [Ratio] 39.65 kg/m2 Cole Cheli SHRIMP PACKER.ADVISORY SOFTWARE ENGINEER Work Phone: [facility] 02-11-2024 13:51-0400 Body weight 104.78 kg Cole Cheli SHRIMP PACKER.ADVISORY SOFTWARE ENGINEER Work Phone: [facility] 02-11-2024 13:51-0400 Diastolic blood pressure 60 mm[Hg] Cole Cheli SHRIMP PACKER.ADVISORY SOFTWARE ENGINEER Work Phone: [facility] 02-11-2024 13:51-0400 Heart rate 76 /min Cole Cheli SHRIMP PACKER.ADVISORY SOFTWARE ENGINEER Work Phone: [facility] 02-11-2024 13:51-0400 SaO2% (BldA) [Mass fraction] 95 % Ocle Cheli SHRIMP PACKER.ADVISORY SOFTWARE ENGINEER Work Phone: [facility] 02-11-2024 13:51-0400 Systolic blood pressure 120 mm[Hg] Cole Cheli SHRIMP PACKER.ADVISORY SOFTWARE ENGINEER Work Phone: [facility] 01-03-2024 13:33-0400 Body height 162.6 cm Kay El[place]hurst SHRIMP PACKER.ADVISORY SOFTWARE ENGINEER Work Phone: [facility] 01-03-2024 13:33-0400 Body weight 107.05 kg Kay [place] SHRIMP PACKER.ADVISORY SOFTWARE ENGINEER Work Phone: [facility] 01-03-2024 13:33-0400 Diastolic blood pressure 60 mm[Hg] Kay [place] SHRIMP PACKER.ADVISORY SOFTWARE ENGINEER Work Phone: [facility] 01-03-2024 13:33-0400 Heart rate 70 /min Kay [place] SHRIMP PACKER.ADVISORY SOFTWARE ENGINEER Work Phone: [facility] 01-03-2024 13:33-0400 Respiratory rate 14 /min Kay [place] SHRIMP PACKER.ADVISORY SOFTWARE ENGINEER Work Phone: [facility] 01-03-2024 13:33-0400 SaO2% (BldA) [Mass fraction] 96 % Kay [place]hurst SHRIMP PACKER.ADVISORY SOFTWARE ENGINEER Work Phone: [facility] 01-03-2024 13:33-0400 Systolic blood pressure 106 mm[Hg] Kay El[place]hurst SHRIMP PACKER.ADVISORY SOFTWARE ENGINEER Work Phone: [facility] 12-10-2023 14:22-0500 Body height 163.5 cm Pulm Wstr Work Phone: [facility] 12-10-2023 14:22-0500 Body weight 106.14 kg Pulm Wstr Work Phone: [facility] 12-10-2023 14:22-0500 Heart rate 78 /min Pulm Wstr Work Phone: [facility] 12-10-2023 14:22-0500 Respiratory rate 14 /min Pulm Wstr Work Phone: [facility] 12-10-2023 14:22-0500 SaO2% (BldA) [Mass fraction] 95 % Pulm Wstr Work Phone: [facility] 12-10-2023 12:50-0500 Body weight 106.23 kg Cole Cheli SHRIMP PACKER.ADVISORY SOFTWARE ENGINEER Work Phone: [facility] 12-10-2023 12:50-0500 Diastolic blood pressure 64 mm[Hg] Cole Cheli SHRIMP PACKER.ADVISORY SOFTWARE ENGINEER Work Phone: [facility] 12-10-2023 12:50-0500 Heart rate 80 /min Cole Cheli SHRIMP PACKER.ADVISORY SOFTWARE ENGINEER Work Phone: [facility] 12-10-2023 12:50-0500 Respiratory rate 20 /min Cole Cheli SHRIMP PACKER.ADVISORY SOFTWARE ENGINEER Work Phone: [facility] 12-10-2023 12:50-0500 SaO2% (BldA) [Mass fraction] 96 % Cole Cheli SHRIMP PACKER.ADVISORY SOFTWARE ENGINEER Work Phone: [facility] 12-10-2023 12:50-0500 Systolic blood pressure 132 mm[Hg] Cole Cheli SHRIMP PACKER.ADVISORY SOFTWARE ENGINEER Work Phone: [facility] 12-01-2023 13:28-0500 Body temperature 98.01 [degF] Brooke Be PA-C Work Phone: [facility] 12-01-2023 13:28-0500 Body weight 107.96 kg Brooke Be PA-C Work Phone: [facility] 12-01-2023 13:28-0500 Diastolic blood pressure 62 mm[Hg] Brooke Be PA-C Work Phone: [facility] 12-01-2023 13:28-0500 Heart rate 72 /min Brooke Be PA-C Work Phone: [facility] 12-01-2023 13:28-0500 SaO2% (BldA) [Mass fraction] 92 % Brooke CIFUENTES-C Work Phone: [facility] 12-01-2023 13:28-0500 Systolic blood pressure 110 mm[Hg] Brooke CIFUENTES-C Work Phone: [facility] 10-11-2023 15:55-0500 Body temperature 97.9 [degF] Sarina Adams MD Work Phone: [facility] 10-11-2023 15:55-0500 Body weight 101.15 kg Sarina Adams MD Work Phone: [facility] 10-11-2023 15:55-0500 Diastolic blood pressure 59 mm[Hg] Sarina Adams MD Work Phone: [facility] 10-11-2023 15:55-0500 Heart rate 78 /min Sarina Adams MD Work Phone: [facility] 10-11-2023 15:55-0500 Respiratory rate 18 /min Sarina Adams MD Work Phone: [facility] 10-11-2023 15:55-0500 SaO2% (BldA) [Mass fraction] 95 % Sarina Adams MD Work Phone: [facility] 10-11-2023 15:55-0500 Systolic blood pressure 101 mm[Hg] Sarina Adams MD Work Phone: [facility] 08-12-2023 20:56-0500 Diastolic blood pressure 86 mm[Hg] [facility] 08-12-2023 20:56-0500 Systolic blood pressure 116 mm[Hg] [facility] 08-12-2023 18:00-0500 Heart rate 65 /min [facility] 08-12-2023 18:00-0500 Respiratory rate 18 /min [facility] 08-12-2023 17:00-0500 SaO2% (BldA) [Mass fraction] 98 % [facility] 08-12-2023 16:37-0500 Inhaled oxygen flow rate 2 L/min [facility] 08-12-2023 14:40-0500 Body height 162.56 cm [facility] 08-12-2023 14:40-0500 Body temperature 96.1 [degF] [facility] 07-22-2023 13:36-0400 Body weight 103.42 kg Denise Alvarado SHRIMP PACKER.QUALITY ASSURANCE PRACTICE MANAGER Work Phone: [facility] 07-22-2023 13:36-0400 Diastolic blood pressure 61 mm[Hg] Denise Alvarado SHRIMP PACKER.QUALITY ASSURANCE PRACTICE MANAGER Work Phone: [facility] 07-22-2023 13:36-0400 Heart rate 69 /min Denise Alvarado SHRIMP PACKER.QUALITY ASSURANCE PRACTICE MANAGER Work Phone: [facility] 07-22-2023 13:36-0400 Respiratory rate 16 /min Denise Alvarado SHRIMP PACKER.QUALITY ASSURANCE PRACTICE MANAGER Work Phone: [facility] 07-22-2023 13:36-0400 Systolic blood pressure 97 mm[Hg] Denise Alvarado SHRIMP PACKER.QUALITY ASSURANCE PRACTICE MANAGER Work Phone: [facility] 07-01-2023 14:18-0400 Heart rate 75 /min Jaida Soares MD Work Phone: [facility] 07-01-2023 14:18-0400 Respiratory rate 18 /min Jaida Soares MD Work Phone: [facility] 07-01-2023 14:18-0400 SaO2% (BldA) [Mass fraction] 93 % Jaida Soares MD Work Phone: [facility] 06-28-2023 13:54-0400 Body weight 107.05 kg Cole Bower SHRIMP PACKER.ADVISORY SOFTWARE ENGINEER Work Phone: [facility] 06-28-2023 13:54-0400 Diastolic blood pressure 58 mm[Hg] Cole Barajasr SHRIMP PACKER.ADVISORY SOFTWARE ENGINEER Work Phone: [facility] 06-28-2023 13:54-0400 Heart rate 69 /min Cole Cheli SHRIMP PACKER.ADVISORY SOFTWARE ENGINEER Work Phone: [facility] 06-28-2023 13:54-0400 SaO2% (BldA) [Mass fraction] 94 % Cole Cheli SHRIMP PACKER.ADVISORY SOFTWARE ENGINEER Work Phone: [facility] 06-28-2023 13:54-0400 Systolic blood pressure 108 mm[Hg] Cole Cheli SHRIMP PACKER.ADVISORY SOFTWARE ENGINEER Work Phone: [facility] 05-24-2023 13:58-0400 Body weight 105.69 kg Denise Alvarado SHRIMP PACKER.QUALITY ASSURANCE PRACTICE MANAGER Work Phone: [facility] 05-24-2023 13:58-0400 Diastolic blood pressure 75 mm[Hg] Denise Alvarado SHRIMP PACKER.QUALITY ASSURANCE PRACTICE MANAGER Work Phone: [facility] 05-24-2023 13:58-0400 Heart rate 77 /min Denise Alvarado SHRIMP PACKER.QUALITY ASSURANCE PRACTICE MANAGER Work Phone: [facility] 05-24-2023 13:58-0400 Respiratory rate 16 /min Denise Alvarado SHRIMP PACKER.QUALITY ASSURANCE PRACTICE MANAGER Work Phone: [facility] 05-24-2023 13:58-0400 SaO2% (BldA) [Mass fraction] 95 % Denise Alvarado SHRIMP PACKER.QUALITY ASSURANCE PRACTICE MANAGER Work Phone: [facility] 05-24-2023 13:58-0400 Systolic blood pressure 115 mm[Hg] Denise Alvarado SHRIMP PACKER.QUALITY ASSURANCE PRACTICE MANAGER Work Phone: [facility] 05-17-2023 11:52-0400 Body weight 107.05 kg Denise Alvarado SHRIMP PACKER.QUALITY ASSURANCE PRACTICE MANAGER Work Phone: [facility] 05-17-2023 11:52-0400 Diastolic blood pressure 60 mm[Hg] Denise Alvarado SHRIMP PACKER.QUALITY ASSURANCE PRACTICE MANAGER Work Phone: [facility] 05-17-2023 11:52-0400 Heart rate 68 /min Denise Alvarado SHRIMP PACKER.QUALITY ASSURANCE PRACTICE MANAGER Work Phone: [facility] 05-17-2023 11:52-0400 Respiratory rate 16 /min Denise Alvarado SHRIMP PACKER.QUALITY ASSURANCE PRACTICE MANAGER Work Phone: [facility] 05-17-2023 11:52-0400 SaO2% (BldA) [Mass fraction] 92 % Denise Alvarado SHRIMP PACKER.QUALITY ASSURANCE PRACTICE MANAGER Work Phone: [facility] 05-17-2023 11:52-0400 Systolic blood pressure 118 mm[Hg] Denise Alvarado SHRIMP PACKER.QUALITY ASSURANCE PRACTICE MANAGER Work Phone: [facility] 04-09-2023 21:54-0400 Diastolic blood pressure 67 mm[Hg] [facility] 04-09-2023 21:54-0400 Heart rate 81 /min [facility] 04-09-2023 21:54-0400 Respiratory rate 23 /min [facility] 04-09-2023 21:54-0400 Systolic blood pressure 93 mm[Hg] [facility] 04-09-2023 20:44-0400 Inhaled oxygen flow rate 4 L/min [facility] 04-09-2023 20:44-0400 SaO2% (BldA) [Mass fraction] 96 % [facility] 04-09-2023 19:43-0400 Body height 162.56 cm [facility] 04-09-2023 19:43-0400 Body temperature 98.2 [degF] [facility] 03-26-2023 14:27-0400 Body temperature 97.39 [degF] Sarina Adams MD Work Phone: [facility] 03-26-2023 14:27-0400 Body weight 106.14 kg Sarina Adams MD Work Phone: [facility] 03-26-2023 14:27-0400 Diastolic blood pressure 60 mm[Hg] Sarina Adams MD Work Phone: [facility] 03-26-2023 14:27-0400 Heart rate 67 /min Sarina Adams MD Work Phone: [facility] 03-26-2023 14:27-0400 Respiratory rate 18 /min Sarina Adams MD Work Phone: [facility] 03-26-2023 14:27-0400 SaO2% (BldA) [Mass fraction] 98 % Sarina Adams MD Work Phone: [facility] 03-26-2023 14:27-0400 Systolic blood pressure 112 mm[Hg] Sarina Adams MD Work Phone: [facility] 01-25-2023 10:00-0400 Body height 162.6 cm Ramesh Brewster MD Work Phone: [facility] 01-25-2023 10:00-0400 Body weight 102.97 kg Ramesh Brewster MD Work Phone: [facility] 01-25-2023 10:00-0400 Diastolic blood pressure 64 mm[Hg] Ramesh Brewster MD Work Phone: [facility] 01-25-2023 10:00-0400 Heart rate 72 /min Ramesh Brewster MD Work Phone: [facility] 01-25-2023 10:00-0400 SaO2% (BldA) [Mass fraction] 91 % Ramesh Brewster MD Work Phone: [facility] 01-25-2023 10:00-0400 Systolic blood pressure 114 mm[Hg] Ramesh Brewster MD Work Phone: [facility] 01-15-2023 14:15-0400 Body weight 105.23 kg Cole Cheli SHRIMP PACKER.ADVISORY SOFTWARE ENGINEER Work Phone: [facility] 01-15-2023 14:15-0400 Diastolic blood pressure 54 mm[Hg] Cole Cheli SHRIMP PACKER.ADVISORY SOFTWARE ENGINEER Work Phone: [facility] 01-15-2023 14:15-0400 Heart rate 66 /min Cole Cheli SHRIMP PACKER.ADVISORY SOFTWARE ENGINEER Work Phone: [facility] 01-15-2023 14:15-0400 SaO2% (BldA) [Mass fraction] 93 % Cole Cheli SHRIMP PACKER.ADVISORY SOFTWARE ENGINEER Work Phone: [facility] 01-15-2023 14:15-0400 Systolic blood pressure 100 mm[Hg] Cole Cheli SHRIMP PACKER.ADVISORY SOFTWARE ENGINEER Work Phone: [facility] 01-05-2023 21:38-0400 Diastolic blood pressure 66 mm[Hg] [facility] 01-05-2023 21:38-0400 Heart rate 79 /min [facility] 01-05-2023 21:38-0400 Respiratory rate 18 /min [facility] 01-05-2023 21:38-0400 SaO2% (BldA) [Mass fraction] 95 % [facility] 01-05-2023 21:38-0400 Systolic blood pressure 128 mm[Hg] [facility] 01-05-2023 20:02-0400 Inhaled oxygen flow rate 3 L/min [facility] 01-05-2023 19:23-0400 Body mass index (BMI) [Ratio] 41.7 kg/m2 [facility] 01-05-2023 19:23-0400 Body weight 110.2 kg [facility] 01-05-2023 19:03-0400 Body temperature 96.8 [degF] [facility] 12-18-2022 13:34-0400 Body weight 105.87 kg Cole Cheli SHRIMP PACKER.ADVISORY SOFTWARE ENGINEER Work Phone: [facility] 12-18-2022 13:34-0400 Diastolic blood pressure 74 mm[Hg] Cole Cheli SHRIMP PACKER.ADVISORY SOFTWARE ENGINEER Work Phone: [facility] 12-18-2022 13:34-0400 Heart rate 81 /min Cole Cheli SHRIMP PACKER.ADVISORY SOFTWARE ENGINEER Work Phone: [facility] 12-18-2022 13:34-0400 Respiratory rate 18 /min Cole Cheli SHRIMP PACKER.ADVISORY SOFTWARE ENGINEER Work Phone: [facility] 12-18-2022 13:34-0400 SaO2% (BldA) [Mass fraction] 93 % Cole Cheli SHRIMP PACKER.ADVISORY SOFTWARE ENGINEER Work Phone: [facility] 12-18-2022 13:34-0400 Systolic blood pressure 126 mm[Hg] Cole Cheli SHRIMP PACKER.ADVISORY SOFTWARE ENGINEER Work Phone: [facility] 10-26-2022 14:11-0500 Diastolic blood pressure 58 mm[Hg] Brooke Indiana PA-C Work Phone: [facility] 10-26-2022 14:11-0500 Heart rate 81 /min Brooke Indiana PA-C Work Phone: [facility] 10-26-2022 14:11-0500 Respiratory rate 16 /min Brooke Indiana PA-C Work Phone: [facility] 10-26-2022 14:11-0500 SaO2% (BldA) [Mass fraction] 98 % Brooke Indiana PA-C Work Phone: [facility] 10-26-2022 14:11-0500 Systolic blood pressure 104 mm[Hg] Brooke Indiana PA-C Work Phone: [facility] 10-21-2022 14:51-0500 Body weight 101.15 kg Jerrica Duenas SHRIMP PACKER.ADVISORY SOFTWARE ENGINEER Work Phone: [facility] 09-29-2022 11:11-0500 Body height 162.6 cm Pete Poole PA-C Work Phone: [facility] 09-29-2022 11:11-0500 Body temperature 97.7 [degF] Pete Poole PA-C Work Phone: [facility] 09-29-2022 11:11-0500 Body weight 95.25 kg Pete Poole PA-C Work Phone: [facility] 09-29-2022 11:11-0500 Diastolic blood pressure 60 mm[Hg] Pete Poole PA-C Work Phone: [facility] 09-29-2022 11:11-0500 Heart rate 86 /min Pete Poole PA-C Work Phone: [facility] 09-29-2022 11:11-0500 Respiratory rate 20 /min Pete Poole PA-C Work Phone: [facility] 09-29-2022 11:11-0500 SaO2% (BldA) [Mass fraction] 100 % Pete Poole PA-C Work Phone: [facility] 09-29-2022 11:11-0500 Systolic blood pressure 104 mm[Hg] Pete Poole PA-C Work Phone: [facility] 08-28-2022 13:52-0500 Body weight 92.99 kg Monty Douglas MD Work Phone: [facility] 08-28-2022 13:52-0500 Diastolic blood pressure 61 mm[Hg] Monty Douglas MD Work Phone: [facility] 08-28-2022 13:52-0500 Heart rate 76 /min Monty Douglas MD Work Phone: [facility] 08-28-2022 13:52-0500 Systolic blood pressure 93 mm[Hg] Monty Douglas MD Work Phone: [facility] 08-10-2022 01:55-0500 Diastolic blood pressure 65 mm[Hg] Dr. Sarina Adams Work Phone: [facility] Work Phone: 08-10-2022 01:55-0500 Heart rate 109 /min Dr. Sarina Adams Work Phone: [facility] Work Phone: 08-10-2022 01:55-0500 Inhaled oxygen flow rate 2 L/min Dr. Sarina Adams Work Phone: [facility] Work Phone: 08-10-2022 01:55-0500 Respiratory rate 20 /min Dr. Sarina Adams Work Phone: [facility] Work Phone: 08-10-2022 01:55-0500 SaO2% (BldA) [Mass fraction] 97 % Dr. Sarina Adams Work Phone: [facility] Work Phone: 08-10-2022 01:55-0500 Systolic blood pressure 113 mm[Hg] Dr. Sarina Adams Work Phone: [facility] Work Phone: 08-10-2022 01:22-0500 Body temperature 101.5 [degF] Dr. Sarina Adams Work Phone: [facility] Work Phone: 08-09-2022 22:02-0500 Body height 162.[address] Sarina Adams Work Phone: [facility] Work Phone: 08-09-2022 22:02-0500 Body mass index (BMI) [Ratio] 35.6 kg/m2 Dr. Sarina Adams Work Phone: [facility] Work Phone: 08-09-2022 22:02-0500 Body weight 94.[address] Sarina Adams Work Phone: [facility] Work Phone: 07-21-2022 14:17-0400 Body weight 90.72 kg Rosana Navarro MD Work Phone: [facility] 07-21-2022 14:17-0400 Diastolic blood pressure 62 mm[Hg] Rosana Navarro MD Work Phone: [facility] 07-21-2022 14:17-0400 Heart rate 84 /min Rosana Navarro MD Work Phone: [facility] 07-21-2022 14:17-0400 Respiratory rate 16 /min Rosana Navarro MD Work Phone: [facility] 07-21-2022 14:17-0400 SaO2% (BldA) [Mass fraction] 95 % Rosana Navarro MD Work Phone: [facility] 07-21-2022 14:17-0400 Systolic blood pressure 104 mm[Hg] Rosana Navarro MD Work Phone: [facility] 07-03-2022 12:55-0400 Diastolic blood pressure 61 mm[Hg] Monty Douglas MD Work Phone: [facility] 07-03-2022 12:55-0400 Systolic blood pressure 94 mm[Hg] Monty Douglas MD Work Phone: [facility] 07-03-2022 12:51-0400 Body height 162.6 cm Monty Douglas MD Work Phone: [facility] 07-03-2022 12:51-0400 Body weight 90.72 kg Monty Douglas MD Work Phone: [facility] 07-03-2022 12:51-0400 Heart rate 69 /min Monty Douglas MD Work Phone: [facility] 06-26-2022 15:01-0400 Body temperature 97.3 [degF] Sarina Adams MD Work Phone: [facility] 06-26-2022 15:01-0400 Body weight 91.99 kg Sarina Adams MD Work Phone: [facility] 06-26-2022 15:01-0400 Diastolic blood pressure 60 mm[Hg] Sarina Adams MD Work Phone: [facility] 06-26-2022 15:01-0400 Heart rate 81 /min Sarina Adams MD Work Phone: [facility] 06-26-2022 15:01-0400 Respiratory rate 18 /min Sarina Adams MD Work Phone: [facility] 06-26-2022 15:01-0400 SaO2% (BldA) [Mass fraction] 97 % Sarina Adams MD Work Phone: [facility] 06-26-2022 15:01-0400 Systolic blood pressure 118 mm[Hg] Sarina Adams MD Work Phone: [facility] 04-01-2022 17:00-0400 Body weight 86.18 kg Sarina Adams MD Work Phone: [facility] 04-01-2022 17:00-0400 Diastolic blood pressure 68 mm[Hg] Sarina Adams MD Work Phone: [facility] 04-01-2022 17:00-0400 Heart rate 84 /min Sarina Adams MD Work Phone: [facility] 04-01-2022 17:00-0400 SaO2% (BldA) [Mass fraction] 95 % Sarina Adams MD Work Phone: [facility] 04-01-2022 17:00-0400 Systolic blood pressure 102 mm[Hg] Sarina Adams MD Work Phone: [facility] 02-25-2022 08:58-0400 Body temperature 98.2 [degF] Michael Pendlebury SHRIMP PACKER.ADVISORY SOFTWARE ENGINEER Work Phone: [facility] 02-25-2022 08:58-0400 Body weight 86.09 kg Michael Pendlebury SHRIMP PACKER.ADVISORY SOFTWARE ENGINEER Work Phone: [facility] 02-25-2022 08:58-0400 Diastolic blood pressure 72 mm[Hg] Michael Pendlebury SHRIMP PACKER.ADVISORY SOFTWARE ENGINEER Work Phone: [facility] 02-25-2022 08:58-0400 Heart rate 84 /min Michael Pendlebury SHRIMP PACKER.ADVISORY SOFTWARE ENGINEER Work Phone: [facility] 02-25-2022 08:58-0400 Respiratory rate 18 /min Michael Pendlebury SHRIMP PACKER.ADVISORY SOFTWARE ENGINEER Work Phone: [facility] 02-25-2022 08:58-0400 SaO2% (BldA) [Mass fraction] 98 % Michael Pendlebury SHRIMP PACKER.ADVISORY SOFTWARE ENGINEER Work Phone: [facility] 02-25-2022 08:58-0400 Systolic blood pressure 112 mm[Hg] Michael Pendlebury SHRIMP PACKER.ADVISORY SOFTWARE ENGINEER Work Phone: [facility] Encounters Encounter Date Encounter Type Care Provider Facility Start: 08-09-2025 End: 08-09-2025 ambulatory [facility] Facility:[facility] Start: 08-09-2025 End: 08-09-2025 ambulatory [facility] Facility:[facility] Start: 08-01-2025 End: 08-03-2025 Evaluation and management of inpatient Sarina D Talampas Facility:[facility] Start: 08-01-2025 ambulatory Sarina D Talampas Facilit y:[facility] Start: 07-12-2025 Non-patient / Non-visit Dr. Asya yu MD [facility] Work Phone: Start: 07-11-2025 Non-patient / Non-visit Dr. Asya yu MD [facility] Work Phone: Start: 07-10-2025 ambulatory Sarina D Talampas Facilit y:[facility] Start: 07-10-2025 Non-patient / Non-visit [facility]. Tiffany DUNNE [facility] Start: 07-10-2025 Non-patient / Non-visit Dr. Asya yu MD [facility] Work Phone: Start: 07-09-2025 Non-patient / Non-visit Dr. Tavo irby [facility] Work Phone: Start: 07-09-2025 ambulatory Sarina D Talampas Facilit y:[facility] Start: 07-09-2025 End: 07-12-2025 Evaluation and management of inpatient Dr. Tavo Nielson DO [facility] Work Phone: Start: 07-09-2025 End: 07-10-2025 ambulatory SARINA D TALAMPAS Facility:[facility] Start: 07-09-2025 End: 07-09-2025 ambulatory SELF Facility:[facility] Start: 07-03-2025 End: 07-03-2025 ambulatory [facility] Facility:[facility] Start: 07-03-2025 End: 07-03-2025 ambulatory [facility] Facility:[facility] Start: 06-11-2025 End: 06-11-2025 Refill Sarina D Talampas MD Work Phone: [facility] [place] Comment on above: Refill Request Start: 06-07-2025 End: 06-14-2025 Refill Sarina Adams MD Work Phone: [facility] [place] Comment on above: Refill Request Start: 05-29-2025 End: 05-29-2025 Office outpatient visit 25 minutes [facility] SHRIMP PACKER.QUALITY ASSURANCE PRACTICE MANAGER Work Phone: [facility] [place] Comment on above: Edema, unspecified t ype (Primary Dx); Acquired hypothyroidism; 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); Encounter for immunization; Screening for diabetic retinopathy; Screening for cervical cancer; Screening for colon cancer; Weight gain Start: 05-29-2025 End: 05-29-2025 [facility] Facility:[facility] Start: 05-22-2025 End: 05-22-2025 Office outpatient visit 25 minutes [facility] SHRIMP PACKER.QUALITY ASSURANCE PRACTICE MANAGER Work Phone: [facility] [place] Comment on above: Weight gain (Primary Dx); Edema, unspecified type; Acquired hypothyroidism; Encounter for immunization; Screening for diabetic retinopathy; Screening for cervical cancer; Screening for colon cancer; Malignant neoplasm of thymus (HCC); Myasthenia gravis (HCC); Platelet disorder (HCC); Hypokalemia Start: 05-22-2025 End: 05-22-2025 [facility] Facility:[facility] Start: 05-21-2025 End: 05-21-2025 Refill Ericka Zamora OD Work Phone: Ophthalmology Comment on above: Refill Request Start: 05-07-2025 End: 05-19-2025 Refill Sarina Adams MD Work Phone: [facility] [place] Comment on above: Refill Request Start: 05-02-2025 End: 05-02-2025 Refill Sarina Adams MD Work Phone: [facility] [place] Comment on above: Refill Request Start: 04-10-2025 End: 04-10-2025 Refill Sarina Adams MD Work Phone: [facility] [place] Comment on above: Refill Request Start: 04-09-2025 End: 04-10-2025 Refill Sarina Adams MD Work Phone: [facility] [place] Comment on above: Refill Request Start: 04-05-2025 End: 04-07-2025 Refill Sarina Adams MD Work Phone: [facility] [place] Comment on above: Refill Request Start: 03-28-2025 End: 03-28-2025 Patient encounter procedure Cole Bower APRN.CNP Work Phone: [facility] [place] Comment on above: Right-sided chest pa in (Primary Dx); Chronic SI joint pain; Chronic midline low back pain, unspecified whether sciatica present; 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); Hypertensive chronic kidney disease, unspecified CKD stage; Acquired hypothyroidism; Hypokalemia; Encounter for therapeutic drug monitoring; Screening for depression; Encounter for screening examination for other mental health and behavioral disorders; Leg swelling Start: 03-28-2025 End: 03-28-2025 ambulatory [facility] Facility:[facility] Start: 03-28-2025 End: 03-29-2025 Telephone encounter Sarina Adams MD Work Phone: [facility] [place] Comment on above: Insurance Authorizat ion Start: 03-26-2025 End: 04-04-2025 Admission to same day surgery center Sarina Adams MD Work Phone: Ambulatory Surgery Comment on above: Outpatient [place] py (Patient is overdue for colorectal cancer screening. (has never done). Patient will need consult with Myles Jackson CNP prior to colorectal cancer screening. ) Start: 03-26-2025 End: 04-04-2025 ambulatory Sarina Adams MD Work Phone: Ambulatory Surgery Start: 03-07-2025 End: 03-08-2025 Refill Sarina Adams MD Work Phone: [facility] [place] Comment on above: Refill Request Start: 02-28-2025 End: 03-01-2025 Telephone encounter Sarina Adams MD Work Phone: [facility] [place] Comment on above: Medication Problem ( [facility] closing need all sent to [facility] [place]); Diabetes Start: 02-08-2025 End: 02-09-2025 Refill Sarina Adams MD Work Phone: [facility] [place] Comment on above: Refill Request Start: 02-05-2025 End: 02-05-2025 Refill Sarina Adams MD Work Phone: [facility] [place] Comment on above: Refill Request Start: 01-19-2025 End: 01-19-2025 Refill Sarina Adams MD Work Phone: [address] [place] [address] Comment on above: Refill Request Start: 01-07-2025 End: 01-08-2025 Refill [facility] SHRIMP PACKER.QUALITY ASSURANCE PRACTICE MANAGER Work Phone: [facility] [place] Comment on above: Refill Request Start: 12-25-2024 End: 12-25-2024 Refill Sarina Adams MD Work Phone: [address] [place] [address] Comment on above: Refill Request Spirometry Start: 12-14-2024 End: 02-13-2025 Refill Sarina Adams MD Work Phone: [facility] [place] Comment on above: Refill Request Start: 12-12-2024 End: 12-12-2024 Orders Only Alicja Walsh SHRIMP PACKER.ADVISORY SOFTWARE ENGINEER Work Phone: Pulmonary Medicine Comment on above: Personal history of tobacco use, presenting hazards to health (Primary Dx) Start: 12-11-2024 End: 12-11-2024 Telephone encounter Sarina Adams MD Work Phone: [facility] [place] Comment on above: Insurance Authorizat ion ([employer] ) Refill Request Start: 12-08-2024 End: 12-08-2024 ambulatory [facility] Facility:[facility] Start: 12-08-2024 End: 12-08-2024 Office outpatient visit 25 minutes Denise Alvaradoguanakito ENGLAND Work Phone: [facility] [place] Comment on above: Acquired hypothyroid ism (Primary Dx); Chronic midline low back pain, unspecified whether sciatica present; Chronic SI joint pain; 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) Start: 12-07-2024 End: 12-12-2024 Follow-up encounter Sally Villa MD Work Phone: Geriatrics Start: 12-06-2024 End: 12-06-2024 ambulatory SARINA ADAMS Facility:[facility] Start: 12-06-2024 End: 12-06-2024 Patient encounter procedure Brooke Be PA-C Work Phone: Pulmonary Medicine Comment on above: Chronic hypoxemic re spiratory failure (HCC) (Primary Dx); Post-COVID chronic dyspnea; Former smoker; Class 3 severe obesity with body mass index (BMI) of 40.0 to 44.9 in adult, unspecified obesity type, unspecified whether serious comorbidity present (HCC) Start: 11-28-2024 End: 11-28-2024 Office outpatient visit 40 minutes Sally Villa MD Work Phone: [facility] [place] Comment on above: Localized swelling o f left lower extremity (Primary Dx); UTI symptoms; Hyponatremia; Pedal edema; Hypoalbuminemia; Weight gain; Fatigue, unspecified type Start: 11-28-2024 End: 11-28-2024 ambulatory SARINA ADAMS Facility:[facility] Start: 11-24-2024 End: 12-08-2024 ambulatory Sarina Adams MD Work Phone: [facility] [place] Comment on above: Diabetes Start: 11-20-2024 End: 11-20-2024 Telephone encounter Sarina Adams MD Work Phone: [facility] [place] Comment on above: Appointment Start: 10-27-2024 End: 10-27-2024 Emergency department patient visit [facility] Facility:[facility] Start: 10-27-2024 End: 11-06-2024 Telephone encounter Tim Mcguire MD [facility] Comment on above: Patient Update Start: 10-24-2024 End: 10-25-2024 Telephone encounter Sarina Adams MD Work Phone: [facility] [place] Comment on above: swelling/future apt Start: 10-19-2024 End: 10-19-2024 Refill Sarina Adams MD Work Phone: [facility] [place] Comment on above: Refill Request Start: 10-17-2024 End: 11-17-2024 ambulatory Sarina Adams MD Work Phone: [facility] [place] Start: 10-16-2024 End: 10-16-2024 ambulatory [facility] Facility:[facility] Start: 10-16-2024 End: 10-16-2024 Patient encounter procedure Ramesh Brewster MD Work Phone: Cardiology Comment on above: Pericardial effusion (Primary Dx); Chronic diastolic congestive heart failure (HCC); Essential hypertension; Mixed hyperlipidemia; PÉREZ (dyspnea on exertion) Start: 10-09-2024 End: 10-12-2024 Refill Sarina Adams MD Work Phone: [facility] Comment on above: Refill Request Start: 09-19-2024 End: 09-19-2024 Emergency department patient visit [facility] Facility:[facility] Start: 09-13-2024 End: 09-13-2024 Refill Sarina Adams MD Work Phone: [facility] [place] Comment on above: Refill Request Start: 09-08-2024 End: 09-11-2024 Refill Sarina Adams MD Work Phone: [facility] [place] Comment on above: Refill Request Start: 08-21-2024 End: 08-22-2024 Telephone encounter Sarina Adams MD Work Phone: [facility] Comment on above: Orders Start: 08-11-2024 End: 08-11-2024 Refill Sarina Adams MD Work Phone: [facility] [place] Comment on above: Refill Request Start: 08-01-2024 End: 08-01-2024 Home visit Sarina Adams MD Work Phone: [facility] [place] Comment on above: Hypertensive chronic kidney disease, unspecified CKD stage (Primary Dx) Start: 07-19-2024 End: 07-19-2024 Refill Sarina Adams MD Work Phone: [facility] [place] Comment on above: Refill Request Start: 07-17-2024 End: 07-17-2024 Telephone encounter Carminaalex Sylvester [facility] Work Phone: [facility] Comment on above: Missed Appointment Start: 07-12-2024 End: 07-12-2024 Telephone encounter Sarina Adams MD Work Phone: [facility] [place] Comment on above: Rx refill; not on cu rrent med list Start: 07-10-2024 End: 07-10-2024 Telephone encounter Carmina Bauerwendienenosijoaquin [facility] Work Phone: [facility] Comment on above: Missed Appointment Appointment Start: 07-07-2024 End: 07-24-2024 Telephone encounter Carmina Bauerjourdan [facility] Work Phone: [facility] Comment on above: Missed Appointment Patient Update Start: 07-05-2024 End: 07-05-2024 Telephone encounter Sarina Adams MD Work Phone: [facility] [place] Comment on above: [facility] OT update POC Start: 07-03-2024 End: 07-03-2024 Telephone encounter Klaus Hernandez MD Work Phone: Orthopaedics Comment on above: Orders Start: 06-26-2024 End: 06-26-2024 Subsequent hospital visit by physician Zac [facility] [place] [facility] Work Phone: Radiology Comment on above: Other closed nondisp laced fracture of proximal end of left humerus, initial encounter [S42.295A] Start: 06-26-2024 End: 06-27-2024 Telephone encounter Denise Alvarado ODILON.QUALITY ASSURANCE PRACTICE MANAGER Work Phone: [facility] [place] Comment on above: Results Start: 06-26-2024 End: 06-26-2024 Patient encounter procedure Klaus Hernandez MD Work Phone: Orthopaedics Comment on above: Other closed nondisp laced fracture of proximal end of left humerus, initial encounter (Primary Dx); Injury of left rotator cuff, subsequent encounter Start: 06-19-2024 End: 06-20-2024 Telephone encounter Cole Bower APRN.ADVISORY SOFTWARE ENGINEER Work Phone: [facility] [place] Comment on above: Results; Appointment Start: 06-16-2024 End: 06-16-2024 Telephone encounter Sarina Adams MD Work Phone: [facility] [place] Comment on above: Insurance Authorizat ion Start: 06-14-2024 End: 06-14-2024 Patient encounter procedure Cole Bower SHRIMP PACKER.ADVISORY SOFTWARE ENGINEER Work Phone: [facility] [place] Comment on above: Injury of left rotat or cuff, subsequent encounter (Primary Dx); Chronic midline low back pain, unspecified whether sciatica present; Chronic SI joint pain; Debility; JOSIE (acute kidney injury) (HCC); Type 2 diabetes mellitus with diabetic neuropathy, with long-term current use of insulin (HCC); Acquired hypothyroidism; Essential hypertension Start: 06-14-2024 End: 06-14-2024 Subsequent hospital visit by physician Zac [facility] [place] Work Phone: Radiology Comment on above: Injury of left rotat or cuff, subsequent encounter [S46.002D] Start: 06-14-2024 End: 06-16-2024 Telephone encounter Sarina Adams MD Work Phone: [facility] [place] Comment on above: Insurance Authorizat ion Start: 06-13-2024 End: 06-26-2024 Telephone encounter Sarina Adams MD Work Phone: [facility] [place] Comment on above: Medication Question OT plan of care Start: 06-12-2024 End: 06-13-2024 Refill Sarina Adams MD Work Phone: [facility] [place] Comment on above: Refill Request; Medi cation Problem (Problem with insurance) Orders Start: 06-08-2024 End: 06-09-2024 Telephone encounter Sarina Adams MD Work Phone: [facility] [place] Comment on above: Medication Question Refill Request Start: 06-08-2024 End: 06-08-2024 Office outpatient visit 25 minutes Denise Alvarado APRN.CNS Work Phone: [facility] [place] Comment on above: JOSIE (acute kidney in jury) (HCC) (Primary Dx); Type 2 diabetes mellitus with diabetic neuropathy, with long-term current use of insulin (HCC); Leg swelling; Injury of humerus, left, subsequent encounter; 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); Generalized edema; Chronic midline low back pain, unspecified whether sciatica present Start: 06-06-2024 End: 06-08-2024 Refill Cole Bower APRN.ADVISORY SOFTWARE ENGINEER Work Phone: [facility] [place] Comment on above: Refill Request Patient Update Start: 06-02-2024 End: 06-07-2024 Telephone encounter Sarina Adams MD Work Phone: [facility] [place] Comment on above: Patient Update Start: 06-02-2024 End: 06-02-2024 Patient encounter procedure Carmina Shell [facility] Work Phone: [facility] Comment on above: Type 2 diabetes (HCC ) (Primary Dx); Poorly controlled type 2 diabetes mellitus (HCC) Start: 06-02-2024 End: 06-02-2024 Telemedicine consultation with patient Carmina Bauerjourdan [facility] Work Phone: [facility] Start: 05-26-2024 End: 06-06-2024 Telephone encounter Sarina Adams MD Work Phone: [facility] [place] Comment on above: Patient Update Start: 05-25-2024 End: 05-25-2024 Telephone encounter Sarina Adams MD Work Phone: [facility] [place] Comment on above: Orders Start: 05-24-2024 End: 05-24-2024 Telephone encounter Sarina Adams MD Work Phone: [facility] [place] Comment on above: Orders Start: 05-23-2024 End: 05-24-2024 Telephone encounter Sarina Adams MD Work Phone: [facility] [place] Comment on above: Patient Question Start: 05-22-2024 End: 05-22-2024 Telephone encounter Sarina Adams MD Work Phone: [facility] [place] Comment on above: Orders Start: 05-19-2024 Telephone encounter Cole chew SHRIMP PACKER.ADVISORY SOFTWARE ENGINEER Work Phone: [facility] [place] Comment on above: Results Start: 05-18-2024 Telephone encounter Sarina costa MD Work Phone: [facility] [place] Comment on above: OT plan of care Start: 05-16-2024 End: 05-16-2024 ambulatory [facility]m [facility] Work Phone: [facility] Comment on above: Spirometry Start: 05-16-2024 End: 05-16-2024 Patient encounter procedure [facility] Work Phone: [facility] Start: 05-16-2024 End: 05-16-2024 Patient encounter procedure Cole Bower SHRIMP PACKER.ADVISORY SOFTWARE ENGINEER Work Phone: [facility] [place] Comment on above: Injury of left rotat or cuff, subsequent encounter (Primary Dx); Chronic midline low back pain, unspecified whether sciatica present; Chronic SI joint pain; Dysuria; Type 2 diabetes mellitus with diabetic neuropathy, with long-term current use of insulin (HCC); Mixed hyperlipidemia; Acquired hypothyroidism; Vitamin D deficiency; Generalized edema; Chronic hypoxemic respiratory failure (HCC); Encounter for therapeutic drug monitoring Start: 05-15-2024 Telephone encounter Sarina costa MD Work Phone: [facility] [place] Comment on above: Patient Update Start: 05-12-2024 Refill Sarina garcia MD Work Phone: [facility] [place] Comment on above: Refill Request Start: 05-11-2024 Telephone encounter Sarina costa MD Work Phone: [facility] [place] Comment on above: Physical Therapy Omayra n of Care Start: 05-09-2024 Telephone encounter Sarina costa MD Work Phone: [facility] [place] Comment on above: [facility], verbal order (requesting delay of care/) Start: 05-04-2024 Refill Sarina garcia MD Work Phone: [facility] [place] Comment on above: Refill Request Start: 05-03-2024 Telephone encounter Sarina costa MD Work Phone: [facility] [place] Comment on above: Okay to follow Home Health PT/OT Start: 04-25-2024 Refill Brooke Ribera PA-C Work Phone: Pulmonary Medicine Comment on above: Refill Request Start: 04-11-2024 Refill Sarina garcia MD Work Phone: [facility] [place] Comment on above: Refill Request Start: 04-10-2024 Refill Sarina garcia MD Work Phone: [facility] [place] Comment on above: Refill Request Medication Request Start: 03-31-2024 End: 03-31-2024 Patient encounter procedure Carmina Sylvester [facility] Work Phone: [facility] Comment on above: Type 2 diabetes (HCC ) (Primary Dx); 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) Refill Request Start: 03-31-2024 Telephone encounter Carmina Sylvester [facility] Work Phone: [facility] Comment on above: Missed Appointment Start: 03-31-2024 End: 03-31-2024 Telemedicine consultation with patient Carmina Shell [facility] Work Phone: [facility] Start: 03-08-2024 Refill Sarina garcia MD Work Phone: Internal [facility] [place] Comment on above: Refill Request Start: 03-07-2024 End: 03-07-2024 Patient encounter procedure Brooke Be PA-C Work Phone: Pulmonary Medicine Comment on above: Post-COVID chronic d yspnea (Primary Dx); Former smoker; Chronic hypoxemic respiratory failure (HCC); Obesity, Class II, BMI 35-39.9 Start: 03-06-2024 Telephone encounter Sarina costa MD Work Phone: [facility] Comment on above: Erroneous encounter- disregard Start: 03-03-2024 Orders Only Sarina garcia MD Work Phone: [facility] [place] Start: 03-03-2024 Telephone encounter Sarina costa MD Work Phone: [facility] [place] Comment on above: Insurance Authorizat ion Start: 02-29-2024 Telephone encounter Sarina costa MD Work Phone: [facility] [place] Comment on above: Insurance Authorizat ion Start: 02-25-2024 Refill Sarina garcia MD Work Phone: [facility] Comment on above: Med Change Request Start: 02-25-2024 Telephone encounter Carmina Sylvester [facility] Work Phone: [facility] Comment on above: Medication Problem ( Needs sliding scale directions) Start: 02-24-2024 End: 02-24-2024 Patient encounter procedure Carmina Bauerwendienenosaleemjoaquin [facility] Work Phone: [facility] Comment on above: Type 2 diabetes (HCC ) (Primary Dx); 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); Poorly controlled type 2 diabetes mellitus (HCC) Start: 02-24-2024 End: 02-24-2024 Telemedicine consultation with patient Carmina Sylvester [facility] Work Phone: [facility] Start: 02-21-2024 End: 02-21-2024 Patient encounter procedure Ramesh Brewster MD Work Phone: Cardiology Comment on above: Pericardial effusion (Primary Dx); Essential hypertension; Mixed hyperlipidemia Start: 02-17-2024 Telephone encounter Pharmacist [facility] Comment on above: Appointment (Primary Care Pharmacy) Start: 02-16-2024 ambulatory Pat Iqbal RP h Work Phone: [facility] Start: 02-16-2024 Patient encounter procedure Pat Iqbal [facility] Work Phone: [facility] Start: 02-14-2024 Telephone encounter Cole chew SHRIMP PACKER.ADVISORY SOFTWARE ENGINEER Work Phone: [facility] [place] Comment on above: Results Start: 02-11-2024 End: 02-11-2024 Patient encounter procedure Cole Barajasr SHRIMP PACKER.ADVISORY SOFTWARE ENGINEER Work Phone: [facility] [place] Comment on above: Chronic midline low back pain, unspecified whether sciatica present (Primary Dx); Chronic SI joint pain; Lower urinary tract symptoms; 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); Leg swelling Start: 02-10-2024 Telephone encounter Sarina costa MD Work Phone: [facility] [place] Comment on above: Medication Question Start: 02-08-2024 Orders Only Kay chew SHRIMP PACKER.ADVISORY SOFTWARE ENGINEER Work Phone: Pulmonary Medicine Comment on above: Former smoker (Prima ry Dx) Start: 02-08-2024 Refill Cole Cheli SHRIMP PACKER.ADVISORY SOFTWARE ENGINEER Work Phone: [facility] [place] Comment on above: Refill Request Start: 02-07-2024 Refill Cole Cheli SHRIMP PACKER.ADVISORY SOFTWARE ENGINEER Work Phone: [facility] [place] Comment on above: Refill Request Start: 02-06-2024 Refill Cole Cheli SHRIMP PACKER.ADVISORY SOFTWARE ENGINEER Work Phone: [facility] [place] Comment on above: Refill Request Start: 02-02-2024 End: 02-02-2024 Subsequent hospital visit by physician [facility] ([facility]) Work Phone: Cat Scan Comment on above: Encounter for screen ing for lung cancer [Z12.2] Start: 01-09-2024 Refill Denise Alvarado SHRIMP PACKER.QUALITY ASSURANCE PRACTICE MANAGER Work Phone: [facility] [place] Comment on above: Refill Request Start: 01-06-2024 Refill Cole Bower SHRIMP PACKER.ADVISORY SOFTWARE ENGINEER Work Phone: [facility] [place] Comment on above: Refill Request Start: 01-03-2024 End: 01-03-2024 Patient encounter procedure Kay Paredes SHRIMP PACKER.ADVISORY SOFTWARE ENGINEER Work Phone: Pulmonary Medicine Comment on above: Encounter for screen ing for lung cancer (Primary Dx); Former smoker Start: 12-16-2023 Refill Cole Bower SHRIMP PACKER.ADVISORY SOFTWARE ENGINEER Work Phone: [facility] Comment on above: Refill Request Start: 12-10-2023 End: 12-10-2023 ambulatory Pulm Lab [facility] Work Phone: [facility] Comment on above: Spirometry Start: 12-10-2023 Telephone encounter Sarina costa MD Work Phone: [facility] [place] Comment on above: Insurance Authorizat ion Start: 12-10-2023 End: 12-10-2023 Patient encounter procedure [facility] Work Phone: [place] Comment on above: Type 2 diabetes evy itus with moderate nonproliferative diabetic retinopathy with macular edema (HCC) (Primary Dx); Post-COVID chronic dyspnea; Chronic hypoxemic respiratory failure (HCC); Vitamin D deficiency; Acquired hypothyroidism; Chronic midline low back pain, unspecified whether sciatica present; Chronic midline low back pain, unspecified whether sciatica present; Chronic SI joint pain; Encounter for therapeutic drug monitoring Start: 12-08-2023 Refill Cole Bower SHRIMP PACKER.ADVISORY SOFTWARE ENGINEER Work Phone: [facility] [place] Comment on above: Refill Request Start: 12-06-2023 Refill Denise Alvarado SHRIMP PACKER.QUALITY ASSURANCE PRACTICE MANAGER Work Phone: [facility] [place] Comment on above: Refill Request Start: 12-01-2023 End: 12-01-2023 Office outpatient visit 15 minutes Brooke Be PA-C Work Phone: Pulmonary Medicine Comment on above: Post-COVID chronic d yspnea (Primary Dx); Exertional dyspnea; Former smoker Start: 11-14-2023 Refill Ericka grover OD Work Phone: Ophthalmology Comment on above: Refill Request Start: 11-10-2023 ambulatory Sarina garcia MD Work Phone: [facility] [place] Start: 11-07-2023 Refill Sarina garcia MD Work Phone: [facility] [place] Comment on above: Refill Request Start: 10-28-2023 End: 10-28-2023 Subsequent hospital visit by physician X[facility] Work Phone: Radiology Comment on above: Fall, initial encoun ter [W19.XXXA] Start: 10-11-2023 End: 10-11-2023 Office outpatient visit 25 minutes Sarina Adams MD Work Phone: [facility] [place] Comment on above: Type 2 diabetes evy itus with moderate nonproliferative diabetic retinopathy with macular edema (HCC) (Primary Dx); Chronic SI joint pain; Acquired hypothyroidism; Vitamin D deficiency; Chronic midline low back pain, unspecified whether sciatica present Start: 09-14-2023 Refill Cole Cheli SHRIMP PACKER.ADVISORY SOFTWARE ENGINEER Work Phone: [facility] [place] Comment on above: Refill Request Start: 09-13-2023 Refill Sarina garcia MD Work Phone: [facility] [place] Comment on above: Refill Request Start: 09-11-2023 Refill Cole Cheli SHRIMP PACKER.ADVISORY SOFTWARE ENGINEER Work Phone: [facility] [place] Comment on above: Refill Request Start: 09-04-2023 Refill Cole Cheli SHRIMP PACKER.ADVISORY SOFTWARE ENGINEER Work Phone: [facility] [place] Comment on above: Refill Request Start: 08-12-2023 End: 08-12-2023 Emergency department patient visit [facility] Work Phone: Start: 08-12-2023 End: 08-12-2023 Patient encounter procedure Ericka Zamora OD Work Phone: Ophthalmology Comment on above: Superficial keratiti s of right eye (Primary Dx); Dry eye syndrome of bilateral lacrimal glands; 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 (HCC); Pseudophakia of both eyes; Ptosis of right eyelid; Myasthenia gravis (HCC) Start: 07-29-2023 Refill Jerrica Duenas SHRIMP PACKER.ADVISORY SOFTWARE ENGINEER Work Phone: Endocrinology Comment on above: Med Change Request Start: 07-24-2023 Refill Sarina garcia MD Work Phone: [facility] [place] Comment on above: Refill Request Start: 07-22-2023 End: 07-22-2023 Office outpatient visit 25 minutes Denise Alvarado SHRIMP PACKER.QUALITY ASSURANCE PRACTICE MANAGER Work Phone: [facility] [place] Comment on above: Encounter for immuni zation (Primary Dx); Screening for colon cancer; Encounter for screening for lung cancer; 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); Acquired hypothyroidism Start: 07-13-2023 Patient Msg Monty small MD Work Phone: Neurology Comment on above: Medication refill Start: 07-13-2023 Refill Monty small MD Work Phone: Neurology Comment on above: Refill Request Start: 07-01-2023 End: 07-01-2023 ambulatory JAIDA SOARES Facility:[facility] Start: 07-01-2023 End: 07-01-2023 Subsequent hospital visit by physician Zac [facility] [place] [facility] Work Phone: Radiology Comment on above: Lumbar spondylosis [ M47.816] Start: 07-01-2023 End: 07-01-2023 Patient encounter procedure Jaida Soares MD Work Phone: [facility] Comment on above: Lumbar spondylosis ( Primary Dx); Myofascial pain Start: 06-29-2023 Telephone encounter Cole chew APRN.ADVISORY SOFTWARE ENGINEER Work Phone: [facility] [place] Comment on above: Results Start: 06-28-2023 End: 06-28-2023 Patient encounter procedure Cole Bower APRN.ADVISORY SOFTWARE ENGINEER Work Phone: [facility] [place] Comment on above: Type 2 diabetes evy itus with moderate nonproliferative diabetic retinopathy with macular edema (HCC) (Primary Dx); Leg swelling; Pericardial effusion; Fall, initial encounter; Acquired hypothyroidism; Essential hypertension; Chronic hypoxemic respiratory failure (HCC) Start: 06-22-2023 Refill Ericka grover OD Work Phone: Ophthalmology Comment on above: Refill Request Start: 06-14-2023 Telephone encounter Sarina costa MD Work Phone: Orthopaedics Start: 05-24-2023 End: 05-24-2023 Subsequent hospital visit by physician Zac [facility] [place] Work Phone: Radiology Comment on above: Fall, initial encoun ter [W19.XXXA] Start: 05-24-2023 End: 05-24-2023 Office outpatient visit 25 minutes Denise Alvarado APRN.QUALITY ASSURANCE PRACTICE MANAGER Work Phone: Internal [facility] [place] Comment on above: Pericardial effusion (Primary Dx); Fall, initial encounter; Right arm pain; Right hand pain; Acquired hypothyroidism; Vitamin D deficiency; Weight gain; Leg swelling Start: 05-22-2023 Refill Denise Alvarado APRN.QUALITY ASSURANCE PRACTICE MANAGER Work Phone: [facility] [place] Comment on above: Refill Request Start: 05-19-2023 End: 05-19-2023 Subsequent hospital visit by physician Zac [facility] [place] [facility] Work Phone: Radiology Comment on above: Dyspnea and respirat ory abnormalities [R06.00, R06.89] Start: 05-17-2023 End: 05-17-2023 Office outpatient visit 25 minutes Denise Alvarado SHRIMP PACKER.QUALITY ASSURANCE PRACTICE MANAGER Work Phone: Internal [facility] [place] Comment on above: Pericardial effusion (Primary Dx); Weight gain; Acquired hypothyroidism; 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); Leg swelling Start: 05-11-2023 Refill Ericka grover OD Work Phone: Ophthalmology Comment on above: Refill Request Start: 04-30-2023 Telephone encounter Denise Lubinjoaquin martins SHRIMP PACKER.QUALITY ASSURANCE PRACTICE MANAGER Work Phone: [facility] [place] Comment on above: Results Start: 04-29-2023 Refill Sarina garcia MD Work Phone: [facility] [place] Comment on above: Refill Request Start: 04-21-2023 Refill Denise Alvarado SHRIMP PACKER.QUALITY ASSURANCE PRACTICE MANAGER Work Phone: [facility] [place] Comment on above: Refill Request Start: 04-19-2023 Refill Denise Alvarado SHRIMP PACKER.QUALITY ASSURANCE PRACTICE MANAGER Work Phone: [facility] [place] Comment on above: Refill Request Start: 04-19-2023 Refill Jerrica Duenas SHRIMP PACKER.ADVISORY SOFTWARE ENGINEER Work Phone: Endocrinology Comment on above: Refill Request Start: 04-14-2023 End: 04-14-2023 ambulatory [facility] Work Phone: [facility] Comment on above: Spirometry Start: 04-14-2023 End: 04-14-2023 Patient encounter procedure [facility] Work Phone: [facility] Start: 04-09-2023 End: 04-09-2023 Emergency department patient visit [facility] Work Phone: Start: 03-31-2023 Refill Cole Bower SHRIMP PACKER.ADVISORY SOFTWARE ENGINEER Work Phone: Internal Medicine [place] Comment on above: Refill Request Start: 03-26-2023 End: 03-26-2023 Office outpatient visit 40 minutes Sarina Adams MD Work Phone: [facility] [place] Comment on above: Type 2 diabetes evy itus with moderate nonproliferative diabetic retinopathy with macular edema (HCC) (Primary Dx); Chronic midline low back pain, unspecified whether sciatica present; Acquired hypothyroidism; Bilateral leg edema; Chronic hypoxemic respiratory failure (HCC); Essential hypertension; Myasthenia gravis (HCC); Class 3 severe obesity due to excess calories with serious comorbidity and body mass index (BMI) of 40.0 to 44.9 in adult (HCC); Thrombocytopenia (HCC); Encounter for long-term current use of medication Start: 03-24-2023 Refill Denise Alvarado SHRIMP PACKER.QUALITY ASSURANCE PRACTICE MANAGER Work Phone: [facility] [place] Comment on above: Refill Request Start: 03-21-2023 Refill Cole Cheli SHRIMP PACKER.ADVISORY SOFTWARE ENGINEER Work Phone: [facility] [place] Comment on above: Refill Request Start: 03-09-2023 Refill Denise Alvarado SHRIMP PACKER.QUALITY ASSURANCE PRACTICE MANAGER Work Phone: [facility] [place] Comment on above: Refill Request Start: 03-04-2023 Refill Cole Cheli SHRIMP PACKER.[facility] Work Phone: [facility] [place] Comment on above: Refill Request Start: 02-16-2023 Refill Cole Cheli SHRIMP PACKER.[facility] Work Phone: [facility] [place] Comment on above: Refill Request Start: 02-15-2023 Refill Cole Cheli SHRIMP PACKER.[facility] Work Phone: [facility] [place] Comment on above: Refill Request Start: 02-13-2023 Refill Denise Alvarado SHRIMP PACKER.QUALITY ASSURANCE PRACTICE MANAGER Work Phone: [facility] [place] Comment on above: Refill Request Start: 02-07-2023 Refill Cole Cheli SHRIMP PACKER.[facility] Work Phone: [facility] [place] Comment on above: Refill Request Start: 01-27-2023 Refill Cole Cheli SHRIMP PACKER.[facility] Work Phone: Internal Medicine [place] Comment on above: Refill Request Start: 01-25-2023 End: 01-25-2023 Patient encounter procedure Ramesh Brewster MD Work Phone: Cardiology Comment on above: Screening for ischem ic heart disease (Primary Dx); Pericardial effusion; Essential hypertension; Mixed hyperlipidemia; Post-COVID chronic dyspnea; Obesity, Class II, BMI 35-39.9 Start: 01-21-2023 Telephone encounter Cole Nolan er SHRIMP PACKER.ADVISORY SOFTWARE ENGINEER Work Phone: Internal Medicine [place] Comment on above: Patient Question Start: 01-19-2023 Telephone encounter Sarina costa MD Work Phone: Internal Medicine [place] Comment on above: Insurance Authorizat ion Start: 01-15-2023 End: 01-15-2023 Patient encounter procedure Cole Barajasr SHRIMP PACKER.ADVISORY SOFTWARE ENGINEER Work Phone: Internal Medicine [place] Comment on above: Pericardial effusion (noninflammatory) (Primary Dx); Chronic hypoxemic respiratory failure (HCC); Chronic midline low back pain, unspecified whether sciatica present; 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) Start: 01-15-2023 Telephone encounter Cole Nolan er SHRIMP PACKER.ADVISORY SOFTWARE ENGINEER Work Phone: Internal Medicine [place] Comment on above: Results; Care Coordi nator - Other Start: 01-06-2023 Telephone encounter Cole Nolan er SHRIMP PACKER.ADVISORY SOFTWARE ENGINEER Work Phone: Internal Medicine [place] Comment on above: Patient Update Start: 01-05-2023 End: 01-05-2023 Emergency department patient visit [facility] Work Phone: Start: 12-25-2022 Refill Sarina garcia MD Work Phone: Internal [facility] Comment on above: Refill Request Start: 12-18-2022 End: 12-18-2022 Refill Sarina Adams MD Work Phone: [facility] Comment on above: Refill Request Cardiac murmur (Prim paz Dx); Generalized edema; Chronic midline low back pain, unspecified whether sciatica present; Type 2 diabetes mellitus with diabetic neuropathy, with long-term current use of insulin (HCC); Obesity, Class III, BMI >= 40; Encounter for therapeutic drug monitoring Refill Request (need s gabapentin 600 mg rx) Start: 12-14-2022 End: 12-14-2022 Patient encounter procedure Ericka Zamora OD Work Phone: Ophthalmology Comment on above: Severe nonproliferat eleno diabetic retinopathy of both eyes with macular edema associated with type 2 diabetes mellitus (HCC) (Primary Dx); Pseudophakia of both eyes; Ptosis of right eyelid; Myasthenia gravis (HCC); Dry eye syndrome of bilateral lacrimal glands Start: 12-02-2022 ambulatory Sarina garcia MD Work Phone: Internal [facility] [place] Start: 11-10-2022 Refill Sarina garcia MD Work Phone: Internal Medicine [place] Comment on above: Refill Request Prior auth needed an d rx backordered Start: 10-26-2022 End: 10-26-2022 Patient encounter procedure Brooke Be PA-C Work Phone: Pulmonary Medicine Comment on above: Post-COVID chronic d yspnea (Primary Dx); Chronic hypoxemic respiratory failure (HCC); History of COVID-19; Former cigarette smoker Start: 10-21-2022 End: 10-21-2022 Patient encounter procedure Jerrica Duenas APRN.ADVISORY SOFTWARE ENGINEER Work Phone: Endocrinology Comment on above: Poorly controlled ty pe 2 diabetes mellitus (HCC) (Primary Dx); Hypothyroidism (acquired) Start: 10-21-2022 Telephone encounter Sarina costa MD Work Phone: Internal Medicine [place] Comment on above: Trulicity problem (S hortage at pharmacies) Appointment Start: 10-19-2022 ambulatory Rosana Navarro MD Work Phone: Pulmonary Medicine Comment on above: Nocturnal oximetry Start: 10-13-2022 Telephone encounter Monty Douglas MD Work Phone: Family Practice Comment on above: Appointment Start: 09-29-2022 Telephone encounter Sarina costa MD Work Phone: Family [facility] Comment on above: Medication Problem; Patient Question Start: 09-29-2022 End: 09-29-2022 Patient encounter procedure Pete Poole PA-C Work Phone: Urology Comment on above: Urinary retention; Complicated UTI (urinary tract infection); 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); Myasthenia gravis (HCC) Start: 09-26-2022 Refill Sarina garcia MD Work Phone: Internal Medicine [place] Comment on above: Refill Request Start: 09-20-2022 Refill Sarina garcia MD Work Phone: Internal Medicine [place] Comment on above: Refill Request Start: 09-18-2022 End: 09-18-2022 Office outpatient visit 40 minutes Sarina Adams MD Work Phone: Internal Medicine [place] Comment on above: Esophageal dysphagia (Primary Dx); Chronic midline low back pain, unspecified whether sciatica present; 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); Myasthenia gravis (HCC); Mixed hyperlipidemia; Bilateral leg edema; Gastroesophageal reflux disease with esophagitis without hemorrhage Start: 09-14-2022 End: 09-14-2022 Patient encounter procedure Ericka Zamora OD Work Phone: Ophthalmology Comment on above: Severe nonproliferat eleno diabetic retinopathy of both eyes with macular edema associated with type 2 diabetes mellitus (HCC) (Primary Dx); Pseudophakia of both eyes; Ptosis of right eyelid; Myasthenia gravis (HCC); Dry eye syndrome of bilateral lacrimal glands Refill Request Start: 09-11-2022 Refill Cole Bower APRN.ADVISORY SOFTWARE ENGINEER Work Phone: Internal Medicine [place] Comment on above: Refill Request Start: 08-28-2022 End: 08-28-2022 Patient encounter procedure Motny Douglas MD Work Phone: Neurology Comment on above: Myasthenia gravis (H CC) (Primary Dx) Start: 08-24-2022 Telephone encounter Denise martins APRN.QUALITY ASSURANCE PRACTICE MANAGER Work Phone: Internal Medicine [place] Comment on above: Medication Problem Start: 08-14-2022 Refill Sarina garcia MD Work Phone: Internal Medicine [place] Comment on above: Refill Request Start: 08-13-2022 Refill Denise Alvarado APRNMaryannQUALITY ASSURANCE PRACTICE MANAGER Work Phone: Internal Medicine [place] Comment on above: Refill Request Start: 08-10-2022 Evaluation and manag ement of inpatient Dr. Sarina Adams Work Phone: [facility]-Medical Surgical 3 Start: 08-10-2022 Non-patient / Non-visit Dr. Florecita Adams Work Phone: [facility] Inpatient Physicians Start: 08-03-2022 Refill Sarina garcia MD Work Phone: Internal Medicine [place] Comment on above: Refill Request Start: 07-21-2022 End: 07-21-2022 Patient encounter procedure Rosana Navarro MD Work Phone: Pulmonary Medicine Comment on above: Post-COVID chronic d yspnea (Primary Dx); Chronic hypoxemic respiratory failure (HCC) Start: 07-17-2022 End: 07-17-2022 Subsequent hospital visit by physician [facility] (I-Stat) Work Phone: Cat Scan Comment on above: Malignant neoplasm o f thymus (HCC) [C37] Start: 07-10-2022 Refill Sarina garcia MD Work Phone: Internal Medicine [place] Comment on above: Refill Request Start: 07-03-2022 End: 07-03-2022 Patient encounter procedure Monty Douglas MD Work Phone: Neurology Comment on above: Malignant neoplasm o f thymus (HCC) (Primary Dx); Myasthenia gravis (HCC) Start: 06-26-2022 End: 06-26-2022 Office outpatient visit 15 minutes Sarina Adams MD Work Phone: Internal Medicine [place] Comment on above: Myasthenia gravis (H CC) (Primary Dx); Type 2 diabetes mellitus with diabetic neuropathy, with long-term current use of insulin (HCC); Bilateral leg edema; Class 1 obesity due to excess calories without serious comorbidity with body mass index (BMI) of 34.0 to 34.9 in adult; Dysuria Start: 06-15-2022 End: 06-15-2022 Patient encounter procedure Ericka Zamora OD Work Phone: Ophthalmology Comment on above: Severe nonproliferat eleno diabetic retinopathy of both eyes with macular edema associated with type 2 diabetes mellitus (HCC) (Primary Dx); Pseudophakia of both eyes; Ptosis of right eyelid Start: 06-14-2022 Refill Gavi TAPIA RN.ADVISORY SOFTWARE ENGINEER Work Phone: OB/Gynecology Comment on above: Refill Request Start: 06-09-2022 Refill Sarina garcia MD Work Phone: Internal Medicine [place] Comment on above: Refill Request Start: 06-02-2022 End: 06-02-2022 Patient encounter procedure Radha Warner MD Work Phone: [facility] Comment on above: 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); Dermatochalasis of both upper eyelids; Hypothyroidism (acquired); Myasthenia gravis (HCC) Start: 05-12-2022 Refill Sarina garcia MD Work Phone: Internal Medicine [place] Comment on above: Refill Request Start: 04-30-2022 Refill Sarina garcia MD Work Phone: [facility] Comment on above: Refill Request Start: 04-13-2022 Telephone encounter Rosana Navarro MD Work Phone: Pulmonary Medicine Comment on above: Order for Oxygen Start: 04-01-2022 End: 04-01-2022 Office outpatient visit 25 minutes Sarina Adams MD Work Phone: Internal Medicine [place] Comment on above: Myasthenia gravis (H CC) (Primary Dx); Acquired hypothyroidism; 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); Essential hypertension; Thrombocytopenia (HCC) Start: 03-27-2022 Refill Lucero Wiley APRN.ADVISORY SOFTWARE ENGINEER Work Phone: Internal Medicine [place] Comment on above: Refill Request Start: 03-24-2022 Refill Sarina garcia MD Work Phone: Internal Medicine [place] Comment on above: Prescription Refills Start: 03-11-2022 Refill Denise Alvarado SHRIMP PACKER.QUALITY ASSURANCE PRACTICE MANAGER Work Phone: Internal Medicine [place] Comment on above: Refill Request Start: 02-25-2022 End: 02-25-2022 Patient encounter procedure Michaeljaved Haro SHRIMP PACKER.ADVISORY SOFTWARE ENGINEER Work Phone: [place] [facility] Comment on above: Laceration of fifth toe of left foot, initial encounter (Primary Dx) Start: 02-09-2022 Telephone encounter Sarina costa MD Work Phone: Internal Medicine [place] Comment on above: Lab Orders Start: 02-06-2022 End: 02-06-2022 Patient encounter procedure Ericka Zamora OD Work Phone: Ophthalmology Comment on above: Ptosis of right eyel id (Primary Dx); Type 2 diabetes mellitus with both eyes affected by moderate nonproliferative retinopathy without macular edema, with long-term current use of insulin (HCC); Pseudophakia of both eyes Start: 02-02-2022 Telephone encounter Sarina costa MD Work Phone: Internal Medicine [place] Comment on above: Insurance Authorizat ion Start: 01-30-2022 End: 01-30-2022 Patient encounter procedure Ericka Zamora OD Work Phone: Ophthalmology Comment on above: Ptosis of right eyel id (Primary Dx); Type 2 diabetes mellitus with both eyes affected by moderate nonproliferative retinopathy without macular edema, with long-term current use of insulin (HCC); Pseudophakia of both eyes Start: 01-30-2022 End: 01-30-2022 Patient encounter procedure Sarina Adams MD Work Phone: Internal Medicine [place] Comment on above: Ptosis of eyelid, ri ght (Primary Dx); Right eye sensitive to light; Watery eyes; 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) Start: 12-30-2021 Refill Sarina garcia MD Work Phone: Internal Medicine [place] Comment on above: Refill Request Start: 12-27-2021 Refill Denise Alvaraod APRN.QUALITY ASSURANCE PRACTICE MANAGER Work Phone: Internal Medicine [place] Comment on above: Refill Request Start: 12-25-2021 End: 12-25-2021 Patient encounter procedure Ericka Zamora OD Work Phone: Ophthalmology Comment on above: Type 2 diabetes evy itus with both eyes affected by moderate nonproliferative retinopathy without macular edema, with long-term current use of insulin (HCC) (Primary Dx); Pseudophakia of both eyes Start: 12-24-2021 ambulatory Sarina garcia MD Work Phone: Internal Medicine [facility] Start: 11-14-2021 Refill Sarina garcia MD Work Phone: Internal Medicine [place] Comment on above: Refill Request; Refi ll Request Start: 02-06-2015 Ophthalmic examinati on and evaluation Ericka Zamora OD Work Phone: [facility] Work Phone: Start: 04-04-2014 End: 05-16-2024 Patient encounter status Ericka Zamora OD Work Phone: [facility] Work Phone: Procedures Date Procedure Procedure Detail Performing Clinician Start: 07-12-[address] Sarina Adams MD Work Phone: Start: 07-09-2025 Radiologic exam ches t [address] Sarina Adams MD Work Phone: Start: 07-09-[address] Sarina Adams MD Work Phone: Start: 03-28-2025 Adult depression scr eening assessment Cole Bower SHRIMP PACKER.ADVISORY SOFTWARE ENGINEER Work Phone: Start: 12-25-2024 Co diffusing capacity Myles Be PA-C Work Phone: Start: 05-16-2024 Noninvasive ear/puls e oximetry multiple chad Manning [place] [employer] Work Phone: Start: 02-11-2024 Urnls dip stick/tabl et rgnt auto w/o microscopy Cole Bower SHRIMP PACKER.ADVISORY SOFTWARE ENGINEER Work Phone: Start: 12-10-2023 Noninvasive ear/puls e oximetry multiple chad Manning [place] [employer] Work Phone: Start: 10-28-2023 Radex spine lumbosac ral 2/3 views Denise Alvarado SHRIMP PACKER.QUALITY ASSURANCE PRACTICE MANAGER Work Phone: Start: 10-11-2023 Adult depression scr eening assessment Sarina Adams MD Work Phone: Start: 08-12-2023 Plain chest X-ray Start: 07-01-2023 Radex spine lumbosac ral minimum 4 views Jaida Soares MD Work Phone: Start: 05-24-2023 Radex forearm 2 views T erri Alvarado SHRIMP PACKER.QUALITY ASSURANCE PRACTICE MANAGER Work Phone: Start: 05-19-2023 Radiologic exam ches t 2 views Brooke [place] [facility] Work Phone: Start: 04-09-2023 Plain chest X-ray Start: 04-09-2023 SARS-CoV-2 & FLU Ant igen (Rapid) Start: 01-05-2023 Plain chest X-ray Start: 12-14-2022 Computerized ophthal garth imaging retina Ericka Zamora OD Work Phone: Start: 10-21-2022 Hemoglobin A1c/Hemoglobin.total in Blood Jerrica C Cioce SHRIMP PACKER.ADVISORY SOFTWARE ENGINEER Work Phone: Start: 09-29-2022 Urnls dip stick/tabl et rgnt auto w/o microscopy Pete Poole PA-C Work Phone: Start: 09-14-2022 Computerized ophthal garth imaging retina Ericka Zamora OD Work Phone: Start: 08-09-2022 CT angiography of ch est with contrast Dr. Sarina Adams Work Phone: Start: 08-09-2022 Plain chest X-ray Dr. Ignacia Adams Work Phone: Start: 06-15-2022 Computerized ophthal garth imaging retina Erickaflory Zamora OD Work Phone: Start: 06-02-2022 Visual field xm uni/ bi w/interp intermed exam Belén Jacques SHRIMP PACKER.ADVISORY SOFTWARE ENGINEER Work Phone: Start: 12-25-2021 Computerized ophthal garth imaging retina Ericka Alecia Noah OD Work Phone: Start: 04-25-2021 Adult depression scr eening assessment Ericka Zamora OD Work Phone: Start: 03-22-2014 Mammography Ericka dubon OD Work Phone: Plan of Treatment Date Care Activity Detail Author Start: 05-29-2026 Annual PCP Team Chronic Disease Visit Annual PCP Team Chronic Disease Visit [facility] Start: 05-29-2026 Pneumococcal Vaccine: 50+ (2 of 2 - PCV) Pneumococcal Vaccine: 50+ (2 of 2 - PCV) [facility] Comment on above: Postponed from 04/19/2015 (Declined at t his time) Start: 05-29-2026 Shingrix Vaccine (1 of 2) Shingrix Vaccine (1 of 2) [facility] Comment on above: Postponed from 2015 (Declined at t his time) Start: 05-29-2026 Urine microalbumin profile DTaP,Tdap,Td Vaccine (2 - Td or Tdap) [facility] Comment on above: Postponed from 06/26/2025 (Declined at t his time) Start: 05-22-2026 Annual PCP Team Chronic Disease Visit Annual PCP Team Chronic Disease Visit [facility] Start: 03-28-2026 Annual PCP Team Chronic Disease Visit Annual PCP Team Chronic Disease Visit [facility] Start: 03-28-2026 Anxiety Screening Anxiety Screening [facility] Start: 03-28-2026 Depression Screening Depression Screening [facility] Start: 01-08-2026 End: 01-08-2026 Patient encounter procedure 01/08/2026 3:20 PM EDT Office Visit Internal Medicine [place] [address] [place] [address] Denise Alvarado APRN.QUALITY ASSURANCE PRACTICE MANAGER [address] [place] [address] 3 month f/u [facility] [place] Comment on above: 3 month f/u Start: 12-08-2025 BP Controlled (<130/80) BP Controlled (<130/80) [facility] Start: 12-06-2025 BP Controlled (<130/80) BP Controlled (<130/80) [facility] Start: 12-06-2025 Hepatitis B surface antibody level LDL Cholesterol [facility] Start: 11-28-2025 Annual PCP Team Chronic Disease Visit Annual PCP Team Chronic Disease Visit [facility] Start: 11-28-2025 BP Controlled (<130/80) BP Controlled (<130/80) [facility] Start: 10-16-2025 Hepatitis B screening Urine Albumin:Creatinine Ratio [facility] Start: 10-09-2025 End: 10-09-2025 Patient encounter procedure 10/09/2025 2:40 PM EST Office Visit [facility] [place] [address] [place] [address] Sarina Adams MD [address] [place] [address] 3 month f/u [facility] [place] Comment on above: 3 month f/u Start: 08-29-2025 End: 11-28-2025 TSH W/REFLEX FT4 TSH W/REFLEX FT4 Lab Routine Weight gain Acquired hypothyroidism Expected: 08/29/2025 (Approximate), Expires: 11/28/2025 [facility] Comment on above: Expected: 08/29/2025 (Approximate), Expi res: 11/28/2025 Start: 07-12-2025 Patient discharge [facility] Start: 07-11-2025 Oxygen therapy [facility] Start: 07-10-2025 [facility] Start: 07-09-2025 Following clinical pathway protocol [facility] Start: 07-09-2025 Assessment of risk of venous thromboembolism [facility] Start: 07-09-2025 Care regimes management [facility] Start: 07-09-2025 Elevation of affected extremity [facility] Start: 07-09-2025 Insertion of catheter into peripheral vein [facility] Start: 07-09-2025 Measuring intake and output [facility] Start: 07-09-2025 Notification of physician [facility] Start: 07-09-2025 Patient education [facility] Start: 07-09-2025 Patient referral to dietitian [facility] Start: 07-09-2025 Providing care according to standard [facility] Start: 07-09-2025 Provision of activity privileges [facility] Start: 07-09-2025 Referral for physical therapy [facility] Start: 07-09-2025 Referral to occupational therapist [facility] Start: 07-09-2025 Referral to service [facility] Start: 07-09-2025 End: 07-09-2025 [facility] Start: 07-09-2025 Verification routine [facility] Start: 07-09-2025 Admission procedure [facility] Start: 07-09-2025 Hospital admission, emergency, from emergency room, medical nature [facility] Start: 07-09-2025 [facility] Start: 07-09-2025 End: 07-09-2025 Patient encounter procedure 07/09/2025 3:20 PM EDT Office Visit Cardiology [address] [place] [address] Ramesh Brewster MD [address] [facility] [address] [place] [address] 6 MONTH FOLLOW UP Cardiology Comment on above: 6 MONTH FOLLOW UP Start: 07-09-2025 End: 07-09-2025 Patient encounter procedure Cat Scan Comment on above: annual ldct annual ldct [facility]str 07/09 @ 140 Start: 07-09-2025 Consultation [facility] Start: 07-09-2025 Patient referral to dietitian [facility] Start: 07-03-2025 End: 07-03-2025 Patient encounter procedure 07/03/2025 3:20 PM EDT Office Visit Internal Medicine [address] [address] Denise Alvarado APRN.QUALITY ASSURANCE PRACTICE MANAGER [address] [place] [address] follow up [facility] [place] Comment on above: follow up Start: 06-28-2025 End: 06-28-2025 Patient encounter procedure [facility] [place] Comment on above: 3 month follow up 3 month follow up / due for colonoscopy Start: 06-28-2025 Hemoglobin A1c measurement HbA1C [facility] Start: 06-26-2025 Urine microalbumin profile [facility] Start: 06-14-2025 Annual PCP Team Chronic Disease Visit Annual PCP Team Chronic Disease Visit [facility] Start: 06-14-2025 BP Controlled (<130/80) BP Controlled (<130/80) [facility] Start: 06-08-2025 BP Controlled (<130/80) BP Controlled (<130/80) [facility] Start: 06-04-2025 Influenza vaccination [facility] Start: 05-29-2025 End: 05-29-2025 Patient encounter procedure 05/29/2025 3:00 PM EDT Office Visit Internal Medicine [place] [address] [facility] [place] [address] Denise Alvarado APRN.QUALITY ASSURANCE PRACTICE MANAGER [address] [place] [address] follow up Internal [facility] [place] Comment on above: follow up Start: 05-29-2025 End: 08-28-2025 Basic metabolic 2000 panel - Serum or Plasma [facility] Work Phone: Comment on above: Expected: 05/29/2025, Expires: Start: 05-29-2025 End: 08-28-2025 CBC W Auto Differential panel - Blood [facility] Comment on above: Expected: 05/29/2025, Expires: Start: 05-22-2025 End: 05-22-2025 Patient encounter procedure 05/22/2025 3:00 PM EDT Office Visit [facility] [place] [address] [place] [address] Denise Alvarado APRN.QUALITY ASSURANCE PRACTICE MANAGER [address] [facility] [place] [address] 3 month follow up / due for colonoscopy [facility] [place] Comment on above: 3 month follow up / due for colonoscopy Start: 05-16-2025 Annual PCP Team Chronic Disease Visit Annual PCP Team Chronic Disease Visit [facility] Start: 05-16-2025 Hepatitis B surface antibody level LDL Cholesterol [facility] Start: 03-28-2025 End: 03-28-2025 Patient encounter procedure 03/28/2025 3:00 PM EDT Office Visit Internal Medicine [place] [address] [place] [address] Cole Bower, SHRIMP PACKER.ADVISORY SOFTWARE ENGINEER [address] [place] [address] rescheduled from 03/05 [facility] [place] Comment on above: rescheduled from 03/05 Start: 03-28-2025 End: 06-27-2025 Comprehensive metabolic 2000 panel - Serum or Plasma [facility] Work Phone: Comment on above: Expected: 03/28/2025, Expires: Start: 03-28-2025 End: 06-27-2025 Hemoglobin A1c in Blood [facility] Comment on above: Expected: 03/28/2025, Expires: Start: 03-28-2025 End: 06-27-2025 Thyrotropin [Units/volume] in Serum or Plasma [facility] Comment on above: Expected: 03/28/2025, Expires: Start: 03-28-2025 End: 06-27-2025 Thyroxine (T4) free [Mass/volume] in Serum or Plasma [facility] Comment on above: Expected: 03/28/2025, Expires: Start: 03-28-2025 End: 06-27-2025 Triiodothyronine (T3) Free [Mass/volume] in Serum or Plasma [facility] Comment on above: Expected: 03/28/2025, Expires: Start: 03-07-2025 BP Controlled (<130/80) BP Controlled (<130/80) [facility] Start: 03-05-2025 End: 03-05-2025 Patient encounter procedure 03/05/2025 3:00 PM EDT Office Visit [facility] [place] [address] [place] [address] Denise Alvarado, SHRIMP PACKER.QUALITY ASSURANCE PRACTICE MANAGER [address] [place], [place] [address] 6 week f/u/ 9wk pt r/s [facility] [place] Comment on above: 6 week f/u/ 9wk pt r/s Start: 02-20-2025 BP Controlled (<130/80) BP Controlled (<130/80) [facility] Start: 02-12-2025 End: 02-12-2025 Patient encounter procedure 02/12/2025 2:40 PM EDT Office Visit [facility] [place] [address] [place] [address] Denise Alvarado, SHRIMP PACKER.QUALITY ASSURANCE PRACTICE MANAGER [address] [place] [address] 6 week f/u/ 9wk pt r/s [facility] [place] Comment on above: 6 week f/u/ 9wk pt r/s Start: 02-10-2025 Annual PCP Team Chronic Disease Visit Annual PCP Team Chronic Disease Visit [facility] Start: 02-10-2025 BP Controlled (<130/80) BP Controlled (<130/80) [facility] Start: 02-01-2025 Screening for malignant neoplasm of lung Lung Cancer Screening [facility] Start: 01-19-2025 End: 01-19-2025 Patient encounter procedure 01/19/2025 1:40 PM EDT Office Visit [facility] [place] [address] [place] [address] Denise Alvarado, SHRIMP PACKER.QUALITY ASSURANCE PRACTICE MANAGER [address] [place] [address] 6 week f/u [facility] [place] Comment on above: 6 week f/u Start: 01-15-2025 End: 01-15-2025 Patient encounter procedure 01/15/2025 3:00 PM EDT Office Visit [facility] [place] [address] [facility] [place] [address] Denise Alvarado, ODILON.QUALITY ASSURANCE PRACTICE MANAGER [address] [place] [address] left toenail - red/bloody [facility] [place] Comment on above: left toenail - red/bloody Start: 01-14-2025 Hemoglobin A1c measurement HbA1C [facility] Start: 01-12-2025 End: 11-30-2025 TSH W/REFLEX FT4 TSH W/REFLEX FT4 Lab Routine Acquired hypothyroidism Expected: 01/12/2025 (Approximate), Expires: 11/30/2025 [facility] Work Phone: Comment on above: Expected: 01/12/2025 (Approximate), Expi res: 11/30/2025 Start: 01-02-2025 BP Controlled (<130/80) BP Controlled (<130/80) [facility] in Start: 12-25-2024 End: 12-25-2024 ambulatory [facility] Comment on above: 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]; Former smoker [Z87.891] Start: 12-09-2024 Annual PCP Team Chronic Disease Visit Annual PCP Team Chronic Disease Visit [facility] Start: 12-08-2024 End: 12-08-2024 Patient encounter procedure 12/08/2024 2:00 PM EST Office Visit [facility] [place] [address] [place] [address] Denise Alvarado, ODILON.QUALITY ASSURANCE PRACTICE MANAGER [address] [place] [address] 1 wk follow up [facility] [place] Comment on above: 1 wk follow up Start: 12-06-2024 End: 12-06-2024 Patient encounter procedure 12/06/2024 2:00 PM EST Office Visit Pulmonary Medicine [address] [place] [address] Brooke Be, PAJenniferC [address] [place] [address] follow up shortness of breath Pulmonary Medicine Comment on above: follow up shortness of breath Start: 12-01-2024 BP Controlled (<130/80) BP Controlled (<130/80) [facility] in Start: 11-28-2024 End: 11-28-2024 Patient encounter procedure 11/28/2024 3:40 PM EST Office Visit [facility] [place] [address] [facility] [place] [address] Sally Villa MD [address] [facility] [place] [address] [facility] Follow up/Patient cannot remember the date/swollen lower extremeties [facility] [place] Comment on above: [facility] Follow up/Patient cannot remember the date/swollen lower extremeties Start: 11-28-2024 End: 02-27-2025 CBC W Auto Differential panel - Blood COMPLETE BLOOD COUNT AND DIFFERENTIAL Lab Routine Pedal edema Expected: 11/28/2024, Expires: 02/27/2025 [facility] Comment on above: Expected: 11/28/2024, Expires: Start: 11-28-2024 End: 02-27-2025 Comprehensive metabolic 2000 panel - Serum or Plasma COMPREHENSIVE METABOLIC PANEL Lab Routine Pedal edema Expected: 11/28/2024, Expires: 02/27/2025 [facility] Comment on above: Expected: 11/28/2024, Expires: Start: 11-28-2024 End: 02-27-2025 Lipid 1996 panel - Serum or Plasma LIPID PANEL BASIC Lab Routine Localized swelling of left lower extremity Expected: 11/28/2024, Expires: 02/27/2025 [facility] Comment on above: Expected: 11/28/2024, Expires: Start: 11-28-2024 End: 02-27-2025 Natriuretic peptide.B prohormone N-Terminal [Mass/volume] in Serum or Plasma NT PRO BNP Lab Routine Hyponatremia Expected: 11/28/2024, Expires: 02/27/2025 [facility] Work Phone: Comment on above: Expected: 11/28/2024, Expires: Start: 11-28-2024 End: 02-27-2025 Thyrotropin [Units/volume] in Serum or Plasma THYROID STIMULATING HORMONE Lab Routine Weight gain Fatigue, unspecified type Expected: 11/28/2024, Expires: 02/27/2025 [facility] Comment on above: Expected: 11/28/2024, Expires: Start: 11-28-2024 End: 02-27-2025 Urinalysis complete panel - Urine URINALYSIS, WITH MICROSCOPIC Lab Routine UTI symptoms Expected: 11/28/2024, Expires: 02/27/2025 [facility] Comment on above: Expected: 11/28/2024, Expires: Start: 10-28-2024 BP Controlled (<130/80) BP Controlled (<130/80) [facility] Start: 10-27-2024 End: 10-27-2024 Patient encounter procedure 10/27/2024 2:45 PM EST Office Visit Pulmonary Medicine [address] [place] [id number] Rosana Navarro MD [address] [place] [address] 6MO OV Pulmonary Medicine Comment on above: 6MO OV Start: 10-27-2024 End: 10-27-2024 Patient encounter procedure 10/27/2024 1:20 PM EST Office Visit [facility] [place] [address] [place], [place] [id number] Denise Alvarado APRN.QUALITY ASSURANCE PRACTICE MANAGER [address] [place], [place] [address] swelling is persisting [facility] [place] Comment on above: swelling is persisting Start: 10-16-2024 End: 01-15-2025 Natriuretic peptide.B prohormone N-Terminal [Mass/volume] in Serum or Plasma [facility] Work Phone: Comment on above: Expected: 10/16/2024, Expires: Start: 10-16-2024 End: 10-16-2024 Patient encounter procedure Cardiology Comment on above: 6 month follow up Start: 10-13-2024 HPV TESTING HPV TESTING [facility] Start: 10-13-2024 PAP TESTING PAP TESTING [facility] Start: 10-13-2024 Screening for malignant neoplasm of cervix [facility] Start: 10-11-2024 Annual PCP Team Chronic Disease Visit Annual PCP Team Chronic Disease Visit [facility] Start: 10-11-2024 Anxiety Screening Anxiety Screening [facility] Start: 10-11-2024 Depression Screening Depression Screening [facility] Start: 10-11-2024 Hepatitis B screening Urine Albumin:Creatinine Ratio [facility] Start: 09-28-2024 End: 09-28-2024 Patient encounter procedure 09/28/2024 2:15 PM EST Office Visit Pulmonary Medicine [address] [place] [address] Rosana Navarro MD [address] [place] [address] 6MO OV Pulmonary Medicine Comment on above: 6MO OV Start: 09-19-2024 End: 09-19-2024 Patient encounter procedure 09/19/2024 1:40 PM EST Office Visit [facility] Medicine [place] [address] [place] [address] Denise Alvarado APRN.QUALITY ASSURANCE PRACTICE MANAGER [address] [place] [address] 3 month f/u [facility] [place] Comment on above: 3 month f/u Start: 2024 Hemoglobin A1c measurement HbA1C [facility] Start: 09-01-2024 End: 06-08-2025 Comprehensive metabolic 2000 panel - Serum or Plasma COMPREHENSIVE METABOLIC PANEL Lab Routine JOSIE (acute kidney injury) (HCC) Type 2 diabetes mellitus with diabetic neuropathy, with long-term current use of insulin (HCC) Expected: 09/01/2024 (Approximate), Expires: 06/08/2025 [facility] Work Phone: Comment on above: Expected: 09/01/2024 (Approximate), Expi res: 06/08/2025 Start: 09-01-2024 End: 06-08-2025 Hemoglobin A1c in Blood HEMOGLOBIN A1C Lab Routine JOSIE (acute kidney injury) (HCC) Type 2 diabetes mellitus with diabetic neuropathy, with long-term current use of insulin (HCC) Expected: 09/01/2024 (Approximate), Expires: 06/08/2025 [facility] Comment on above: Expected: 09/01/2024 (Approximate), Expi res: 06/08/2025 Start: 09-01-2024 End: 06-08-2025 Microalbumin/Creatinine [Mass Ratio] in Urine ALBUMIN/CREATININE RATIO, URINE Lab Routine JOSIE (acute kidney injury) (HCC) Type 2 diabetes mellitus with diabetic neuropathy, with long-term current use of insulin (HCC) Expected: 09/01/2024 (Approximate), Expires: 06/08/2025 [facility] Comment on above: Expected: 09/01/2024 (Approximate), Expi res: 06/08/2025 Start: 08-16-2024 Hemoglobin A1c measurement HbA1C [facility] Start: 08-14-2024 End: 08-14-2024 Patient encounter procedure 08/14/2024 1:00 PM EST Office Visit Orthopaedics [address] [place] [address] Ana M Daley PA-C [address] [place] [address] Injury of left rotator cuff, subsequent encounter [S46.002D] Orthopaedics Comment on above: Injury of left rotator cuff, subsequent encounter [S46.002D] Start: 08-12-2024 Glaucoma screening Dilated Retinal Exam [facility] Start: 08-12-2024 Hepatitis C antibody, confirmatory test Dilated Retinal Exam [facility] Start: 08-05-2024 Hepatitis C antibody, confirmatory test Dilated Retinal Exam [facility] Start: 07-22-2024 BP Controlled (<130/80) BP Controlled (<130/80) [facility]ic Start: 07-22-2024 Colorectal Cancer Screening Colorectal Cancer Screening [facility] Comment on above: Postponed from 2010 (Declined at t his time) Start: 07-22-2024 Influenza vaccination Lung Cancer Screening [facility] Comment on above: Postponed from 07/17/2023 (Declined at t his time) Start: 07-22-2024 Screening for malignant neoplasm of colon Colorectal Cancer Screening [facility] Comment on above: Postponed from 2010 (Declined at t his time) Start: 07-22-2024 Screening for malignant neoplasm of lung Lung Cancer Screening [facility] Comment on above: Postponed from 07/17/2023 (Declined at t his time) Start: 07-17-2024 End: 07-17-2024 Patient encounter procedure 07/17/2024 11:00 AM EDT [facility] [address] [phone] [facility] [address] [place], [place] [id number] DM f/up [facility] Comment on above: DM f/up Start: 07-10-2024 End: 07-10-2024 Patient encounter procedure 07/10/2024 10:00 AM EDT [facility] [address] [phone] [facility] [address] [place] [address] DM f/up [facility] Comment on above: DM f/up Start: 07-07-2024 End: 07-07-2024 Patient encounter procedure 07/07/2024 10:30 AM EDT [facility] [address] [phone] [facility] [address] [place] [address] DM f/up [facility] Comment on above: DM f/up Start: 06-28-2024 Annual PCP Team Chronic Disease Visit Annual PCP Team Chronic Disease Visit [facility] Start: 06-28-2024 BP Controlled (<130/80) BP Controlled (<130/80) [facility] Start: 06-26-2024 End: 06-26-2024 Patient encounter procedure 06/26/2024 1:45 PM EDT Office Visit Orthopaedics [address] [place], [place] [address] Klaus Hernandez MD [address] [facility] [place] [place] [address] Injury of left rotator cuff, subsequent encounter [S46.002D] Orthopaedics Comment on above: Injury of left rotator cuff, subsequent encounter [S46.002D] Start: 06-14-2024 End: 06-14-2024 Patient encounter procedure 06/14/2024 2:20 PM EDT Office Visit [facility] [place] [address] [place] [address] Cole Bower APRN.ADVISORY SOFTWARE ENGINEER [address] [place] [address] 4 week follow up-labs and left shoulder [facility] [place] Comment on above: 4 week follow up-labs and left shoulder Start: 06-08-2024 End: 09-07-2024 Basic metabolic 2000 panel - Serum or Plasma BASIC METABOLIC PANEL Lab Routine JOSIE (acute kidney injury) (HCC) Expected: 06/08/2024, Expires: 09/07/2024 [facility] Work Phone: Comment on above: Expected: 06/08/2024, Expires: Start: 06-08-2024 End: 06-08-2024 Patient encounter procedure 06/08/2024 1:40 PM EDT Office Visit [facility] [place] [address] [place], [place] [id number] Denise Alvarado APRN.QUALITY ASSURANCE PRACTICE MANAGER [address] [facility] [place] [address] evaluate leg swelling, patient c/o of continued weakness [facility] [place] Comment on above: evaluate leg swelling, patient c/o of co ntinued weakness Start: 06-06-2024 End: 06-06-2024 Patient encounter procedure 06/06/2024 1:50 PM EDT Office Visit Cardiology [address] [place] [address] Pericardial effusion [I31.39] Cardiology Comment on above: Pericardial effusion [I31.39] Start: 06-05-2024 End: 02-20-2025 Echocardiography ECHO Cardiology Routine Pericardial effusion Expected: 06/05/2024, Expires: 02/20/2025 [facility] Work Phone: Comment on above: Expected: 06/05/2024, Expires: Start: 06-04-2024 Influenza vaccination [facility] Start: 06-02-2024 End: 06-02-2024 Patient encounter procedure 06/02/2024 11:00 AM EDT [facility] [address] [phone] [facility] [address] [place] [address] DM f/up [facility] Comment on above: DM f/up Start: 05-24-2024 BP CONTROLLED (<130/80) BP CONTROLLED (<130/80) [facility] Start: 05-17-2024 BP CONTROLLED (<130/80) BP CONTROLLED (<130/80) [facility] Start: 05-16-2024 End: 05-16-2024 ambulatory 05/16/2024 2:45 PM EDT Procedure [facility] [address] [place] [address] [facility], Pul[facility] [address] [place] [address] Chronic hypoxemic respiratory failure (HCC) [J96.11] [facility] Comment on above: Chronic hypoxemic respiratory failure (H CC) [J96.11] Start: 05-16-2024 End: 08-15-2024 25-hydroxyvitamin D3 [Mass/volume] in Serum or Plasma [facility] Comment on above: Expected: 05/16/2024, Expires: Start: 05-16-2024 End: 08-15-2024 Bacteria identified in Urine by Culture [facility] Comment on above: Expected: 05/16/2024, Expires: 4 Start: 05-16-2024 End: 08-15-2024 Comprehensive metabolic 2000 panel - Serum or Plasma [facility] Work Phone: Comment on above: Expected: 05/16/2024, Expires: Start: 05-16-2024 End: 08-15-2024 Hemoglobin A1c in Blood [facility] Comment on above: Expected: 05/16/2024, Expires: 4 Start: 05-16-2024 End: 08-15-2024 LIPID PANEL, NONFASTING [facility] Comment on above: Expected: 05/16/2024, Expires: Start: 05-16-2024 End: 08-15-2024 Thyrotropin [Units/volume] in Serum or Plasma [facility] Comment on above: Expected: 05/16/2024, Expires: Start: 05-16-2024 End: 08-15-2024 Thyroxine (T4) free [Mass/volume] in Serum or Plasma [facility] Comment on above: Expected: 05/16/2024, Expires: 4 Start: 05-16-2024 End: 08-15-2024 Triiodothyronine (T3) Free [Mass/volume] in Serum or Plasma [facility] Comment on above: Expected: 05/16/2024, Expires: Start: 05-16-2024 End: 08-15-2024 Urinalysis complete panel - Urine [facility] Comment on above: Expected: 05/16/2024, Expires: Start: 05-16-2024 End: 05-16-2024 Patient encounter procedure [facility] [place] Comment on above: 3 month follow 3 month follow/ meds refill/ Follow up after Fall Start: 05-12-2024 End: 05-12-2024 Patient encounter procedure 05/12/2024 2:20 PM EDT Office Visit [facility] [place] [address] [place] [address] Sarina Adams MD [address] [place] [address] [facility] d/c 05/04/24, left should pain from a fall [facility] [place] Comment on above: [facility] d/c 05/04/24, left should tsering n from a fall Start: 05-04-2024 End: 05-04-2024 ambulatory 05/04/2024 2:30 PM EDT Results Only [facility] [address] [place] [address] [facility] Start: 05-04-2024 Hemoglobin A1c measurement HbA1C [facility] Start: 04-29-2024 BP CONTROLLED (<130/80) BP CONTROLLED (<130/80) [facility] Start: 03-31-2024 End: 03-31-2024 Patient encounter procedure 03/31/2024 9:00 AM EDT [facility] [address] [phone] [facility] [address] [place] [address] DM f/up [facility] Comment on above: DM f/up Start: 03-26-2024 ANNUAL PCP TEAM CHRONIC DISEASE VISIT ANNUAL PCP TEAM CHRONIC DISEASE VISIT [facility] Start: 03-26-2024 BP CONTROLLED (<130/80) BP CONTROLLED (<130/80) [facility] Start: 03-26-2024 Hepatitis B screening URINE ALBUMIN:CREATININE RATIO [facility] Start: 03-26-2024 Hepatitis B surface antibody level LDL CHOLESTEROL [facility] Start: 03-16-2024 Hepatitis C antibody, confirmatory test DILATED RETINAL EXAM [facility] Start: 03-07-2024 End: 03-07-2024 Patient encounter procedure 03/07/2024 2:00 PM EDT Office Visit Pulmonary Medicine [address] [place] [address] Brooke Be PA-C [address] [place] [address] 3 month follow up Pulmonary Medicine Comment on above: 3 month follow up Start: 02-21-2024 End: 02-21-2024 Patient encounter procedure 02/21/2024 1:40 PM EDT Office Visit Cardiology [address] [place] [phone] Ramesh Brewster MD [address] [facility] [address] [place], [place] [id number] 4 month f/u Cardiology Comment on above: 4 month f/u Start: 02-11-2024 End: 02-11-2024 Patient encounter procedure 02/11/2024 2:00 PM EDT Office Visit [facility] [place] [address] [facility] [place] [address] Cole Bower APRN.ADVISORY SOFTWARE ENGINEER [address] [place] [address] 2 month follow up [facility] [place] Comment on above: 2 month follow up Start: 02-02-2024 End: 05-03-2024 25-hydroxyvitamin D3 [Mass/volume] in Serum or Plasma VITAMIN D 25 HYDROXY Lab Routine Vitamin D deficiency Expected: 02/02/2024, Expires: 05/03/2024 [facility] Work Phone: Comment on above: Expected: 02/02/2024, Expires: Start: 02-02-2024 End: 05-03-2024 CBC W Auto Differential panel - Blood CBC + DIFF Lab Routine Encounter for therapeutic drug monitoring Expected: 02/02/2024, Expires: 05/03/2024 [facility] Work Phone: Comment on above: Expected: 02/02/2024, Expires: 4 Start: 02-02-2024 End: 05-03-2024 Comprehensive metabolic 2000 panel - Serum or Plasma COMP METABOLIC PANEL Lab Routine Encounter for therapeutic drug monitoring Expected: 02/02/2024, Expires: 05/03/2024 [facility] Work Phone: Comment on above: Expected: 02/02/2024, Expires: 4 Start: 02-02-2024 End: 05-03-2024 Hemoglobin A1c in Blood HGB A1C Lab Routine 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) Expected: 02/02/2024, Expires: 05/03/2024 [facility] Work Phone: Comment on above: Expected: 02/02/2024, Expires: Start: 01-26-2024 BP CONTROLLED (<130/80) BP CONTROLLED (<130/80) [facility] Start: 01-16-2024 ANNUAL PCP TEAM CHRONIC DISEASE VISIT ANNUAL PCP TEAM CHRONIC DISEASE VISIT [facility] Start: 01-16-2024 BP CONTROLLED (<130/80) BP CONTROLLED (<130/80) [facility] Start: 01-10-2024 Hemoglobin A1c measurement HbA1C [facility] Start: 12-19-2023 ANNUAL PCP TEAM CHRONIC DISEASE VISIT ANNUAL PCP TEAM CHRONIC DISEASE VISIT [facility] Start: 12-19-2023 BP CONTROLLED (<130/80) BP CONTROLLED (<130/80) [facility] Start: 12-19-2023 Hepatitis B screening URINE ALBUMIN:CREATININE RATIO [facility] Start: 12-19-2023 Hepatitis B surface antibody level LDL CHOLESTEROL [facility] Start: 12-15-2023 Hepatitis C antibody, confirmatory test DILATED RETINAL EXAM [facility] Start: 10-26-2023 BP CONTROLLED (<130/80) BP CONTROLLED (<130/80) [facility] Start: 10-04-2023 Behavioral Health Screening Behavioral Health Screening [facility] Start: 10-01-2023 End: 07-07-2024 Hemoglobin A1c in Blood HGB A1C Lab Routine 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) Expected: 10/01/2023 (Approximate), Expires: 07/07/2024 [facility] Work Phone: Comment on above: Expected: 10/01/2023 (Approximate), Expi res: 07/07/2024 Start: 09-29-2023 BP CONTROLLED (<130/80) BP CONTROLLED (<130/80) Li [facility] Start: 09-27-2023 Hemoglobin A1c measurement HbA1C [facility] Start: 09-27-2023 Hemoglobin A1c/Hemoglobin.total in Blood HbA1C [facility] Start: 09-18-2023 ANNUAL PCP TEAM CHRONIC DISEASE VISIT ANNUAL PCP TEAM CHRONIC DISEASE VISIT [facility] Start: 09-18-2023 BP CONTROLLED (<130/80) BP CONTROLLED (<130/80) Li Cl [facility] Start: 09-14-2023 Hepatitis C antibody, confirmatory test DILATED RETINAL EXAM [facility] Start: 08-28-2023 BP CONTROLLED (<130/80) BP CONTROLLED (<130/80) Li Cl [facility] Start: 08-24-2023 BP CONTROLLED (<130/80) BP CONTROLLED (<130/80) [facility] Start: 08-13-2023 [facility] Start: 08-13-2023 End: 10-13-2023 Thyrotropin [Units/volume] in Serum or Plasma TSH BLD Lab Routine Acquired hypothyroidism Expected: 08/13/2023 (Approximate), Expires: 10/13/2023 [facility] Work Phone: Comment on above: Expected: 08/13/2023 (Approximate), Expi res: 10/13/2023 Start: 08-12-2023 End: 08-12-2023 [facility] Start: 07-21-2023 BP CONTROLLED (<130/80) BP CONTROLLED (<130/80) Li Cl [facility] Start: 07-17-2023 Influenza vaccination LUNG CANCER SCREENING [facility] Start: 07-03-2023 BP CONTROLLED (<130/80) BP CONTROLLED (<130/80) Li Cl [facility] Start: 06-26-2023 End: 08-26-2023 25-hydroxyvitamin D3 [Mass/volume] in Serum or Plasma VITAMIN D 25 HYDROXY Lab Routine Vitamin D deficiency Expected: 06/26/2023 (Approximate), Expires: 08/26/2023 [facility] Work Phone: Comment on above: Expected: 06/26/2023 (Approximate), Expi res: 08/26/2023 Start: 06-26-2023 ANNUAL PCP TEAM CHRONIC DISEASE VISIT ANNUAL PCP TEAM CHRONIC DISEASE VISIT [facility] Start: 06-26-2023 COLORECTAL CANCER SCREENING COLORECTAL CANCER SCREENING [facility] Comment on above: Postponed from 2010 (Declined at t his time) Start: 06-26-2023 End: 08-26-2023 Hemoglobin A1c in Blood HGB A1C Lab Routine 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) Expected: 06/26/2023 (Approximate), Expires: 08/26/2023 [facility] Work Phone: Comment on above: Expected: 06/26/2023 (Approximate), Expi res: 08/26/2023 Start: 06-26-2023 Hemoglobin A1c/Hemoglobin.total in Blood HBA1C [facility] Start: 06-26-2023 HEPATITIS B (1 of 3 - 3-dose series) HEPATITIS B (1 of 3 - 3-dose series) [facility] Comment on above: Postponed from 1965 (Declined at t his time) Start: 06-26-2023 Hepatitis B Vaccine (1 of 3 - 3-dose series) Hepatitis B Vaccine (1 of 3 - 3-dose series) [facility] Comment on above: Postponed from 1965 (Declined at t his time) Start: 06-26-2023 PNEUMOCOCCAL (2 - PCV) PNEUMOCOCCAL (2 - PCV) [facility] Comment on above: Postponed from 04/19/2015 (Declined at t his time) Start: 06-26-2023 Pneumococcal vaccination Pneumococcal Vaccine (2 - PCV) [facility] Comment on above: Postponed from 04/19/2015 (Declined at t his time) Start: 06-26-2023 End: 08-26-2023 Thyrotropin [Units/volume] in Serum or Plasma TSH BLD Lab Routine Acquired hypothyroidism Expected: 06/26/2023 (Approximate), Expires: 08/26/2023 [facility] Work Phone: Comment on above: Expected: 06/26/2023 (Approximate), Expi res: 08/26/2023 Start: 06-25-2023 SHINGRIX VACCINE (1 of 2) SHINGRIX VACCINE (1 of 2) [facility] Comment on above: Postponed from 2015 (Insurance Cov erage) Start: 06-15-2023 Hepatitis C antibody, confirmatory test DILATED RETINAL EXAM [facility] Start: 06-10-2023 BP CONTROLLED (<130/80) BP CONTROLLED (<130/80) [facility] in Start: 06-04-2023 Influenza vaccination [facility] Start: 05-24-2023 End: 05-17-2024 Echocardiography ECHO Cardiology Routine Pericardial effusion Weight gain Expected: 05/24/2023 (Approximate), Expires: 05/17/2024 [facility] Work Phone: Comment on above: Expected: 05/24/2023 (Approximate), Expi res: 05/17/2024 Start: 05-17-2023 End: 07-17-2023 Natriuretic peptide.B prohormone N-Terminal [Mass/volume] in Serum or Plasma [facility] Work Phone: Comment on above: Expected: 05/17/2023, Expires: Start: 04-02-2023 Influenza vaccination INFLUENZA (#1) [facility] Comment on above: Postponed from 06/04/2022 (Declined at t his time) Start: 04-01-2023 ANNUAL PCP TEAM CHRONIC DISEASE VISIT ANNUAL PCP TEAM CHRONIC DISEASE VISIT [facility] Start: 04-01-2023 BP CONTROLLED (<130/80) BP CONTROLLED (<130/80) [facility] Start: 03-20-2023 Hemoglobin A1c/Hemoglobin.total in Blood HBA1C [facility] Start: 03-16-2023 BP CONTROLLED (<130/80) BP CONTROLLED (<130/80) [facility] in Start: 02-25-2023 BP CONTROLLED (<130/80) BP CONTROLLED (<130/80) [facility] Start: 01-30-2023 ANNUAL PCP TEAM CHRONIC DISEASE VISIT ANNUAL PCP TEAM CHRONIC DISEASE VISIT [facility] Start: 01-30-2023 BP CONTROLLED (<130/80) BP CONTROLLED (<130/80) [facility] Start: 01-19-2023 Hemoglobin A1c/Hemoglobin.total in Blood HBA1C [facility] Start: 01-15-2023 End: 03-17-2023 C reactive protein [Mass/volume] in Serum or Plasma [facility] Work Phone: Comment on above: Expected: 01/15/2023, Expires: 3 Start: 01-15-2023 End: 03-17-2023 Comprehensive metabolic 2000 panel - Serum or Plasma [facility] Work Phone: Comment on above: Expected: 01/15/2023, Expires: 3 Start: 01-15-2023 End: 03-17-2023 Thyrotropin [Units/volume] in Serum or Plasma [facility] Work Phone: Comment on above: Expected: 01/15/2023, Expires: 3 Start: 01-05-2023 [facility] Start: 12-25-2022 Hepatitis C antibody, confirmatory test DILATED RETINAL EXAM [facility] Start: 12-18-2022 End: 02-17-2023 Natriuretic peptide.B prohormone N-Terminal [Mass/volume] in Serum or Plasma [facility] Work Phone: Comment on above: Expected: 12/18/2022, Expires: 3 Start: 12-09-2022 BP CONTROLLED (<130/80) BP CONTROLLED (<130/80) [facility] Start: 10-07-2022 Hemoglobin A1c/Hemoglobin.total in Blood HBA1C [facility] Start: 10-04-2022 DEPRESSION ASSESSMENT DEPRESSION ASSESSMENT [facility] Start: 09-01-2022 End: 11-01-2022 CBC panel - Blood by Automated count CBC Lab Routine Thrombocytopenia (HCC) Expected: 09/01/2022 (Approximate), Expires: 11/01/2022 [facility] Work Phone: Comment on above: Expected: 09/01/2022 (Approximate), Expi res: 11/01/2022 Start: 08-10-2022 US urinary tract Kidney and Bladder [facility] Work Phone: Start: 08-10-2022 End: 08-10-2022 Blood culture [facility] Work Phone: Start: 08-10-2022 Radiography of esophagus Esophagus Dual Contrast [facility] Work Phone: Start: 08-10-2022 Ultrasonography of abdomen Abdomen Limited [facility] Work Phone: Start: 08-10-2022 Verification routine [facility] Work Phone: Start: 08-10-2022 Admission procedure [facility] Work Phone: Start: 08-10-2022 [facility] Work Phone: Start: 07-29-2022 ANNUAL PCP TEAM CHRONIC DISEASE VISIT ANNUAL PCP TEAM CHRONIC DISEASE VISIT [facility] Start: 07-02-2022 End: 09-01-2022 Hemoglobin A1c in Blood HGB A1C Lab Routine 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) Expected: 07/02/2022 (Approximate), Expires: 09/01/2022 [facility] Work Phone: Comment on above: Expected: 07/02/2022 (Approximate), Expi res: 09/01/2022 Start: 07-02-2022 End: 09-01-2022 Thyrotropin [Units/volume] in Serum or Plasma TSH BLD Lab Routine Acquired hypothyroidism Expected: 07/02/2022 (Approximate), Expires: 09/01/2022 [facility] Work Phone: Comment on above: Expected: 07/02/2022 (Approximate), Expi res: 09/01/2022 Start: 07-02-2022 End: 09-01-2022 Thyroxine (T4) free [Mass/volume] in Serum or Plasma T4 FREE/FREE THYROX Lab Routine Acquired hypothyroidism Expected: 07/02/2022 (Approximate), Expires: 09/01/2022 [facility] Work Phone: Comment on above: Expected: 07/02/2022 (Approximate), Expi res: 09/01/2022 Start: 07-02-2022 End: 09-01-2022 Triiodothyronine (T3) Free [Mass/volume] in Serum or Plasma T3 FREE BLD Lab Routine Acquired hypothyroidism Expected: 07/02/2022 (Approximate), Expires: 09/01/2022 [facility] Work Phone: Comment on above: Expected: 07/02/2022 (Approximate), Expi res: 09/01/2022 Start: 06-26-2022 Hemoglobin A1c/Hemoglobin.total in Blood HBA1C [facility] Start: 06-04-2022 Influenza vaccination [facility] Start: 04-25-2022 3 comp foot exam completed DIABETIC FOOT EXAM [facility] Start: 04-25-2022 Adult depression screening assessment DEPRESSION SCREENING [facility] Start: 04-25-2022 Diabetic foot examination Diabetic Foot Exam [facility] Start: 04-10-2022 Hepatitis B screening URINE ALBUMIN:CREATININE RATIO [facility] Start: 04-10-2022 Hepatitis B surface antibody level LDL CHOLESTEROL [facility] Start: 02-09-2022 End: 04-11-2022 ACETYLCHOLINE REC BINDING AB ACETYLCHOLINE REC BINDING AB Lab Routine Ptosis of eyelid, right Right eye sensitive to light Expected: 02/09/2022, Expires: 04/11/2022 [facility] Work Phone: Comment on above: Expected: 02/09/2022, Expires: 2 Start: 02-09-2022 End: 04-11-2022 LRP4 AUTOANTIBODY TEST LRP4 AUTOANTIBODY TEST Lab Routine Ptosis of eyelid, right Right eye sensitive to light Expected: 02/09/2022, Expires: 04/11/2022 [facility] Work Phone: Comment on above: Expected: 02/09/2022, Expires: 2 Start: 02-09-2022 End: 04-11-2022 MUSK ANTIBODY TEST MUSK ANTIBODY TEST Lab Routine Ptosis of eyelid, right Right eye sensitive to light Expected: 02/09/2022, Expires: 04/11/2022 [facility] Work Phone: Comment on above: Expected: 02/09/2022, Expires: 2 Start: 02-09-2022 End: 04-11-2022 Thyrotropin [Units/volume] in Serum or Plasma TSH BLD Lab Routine Ptosis of eyelid, right Right eye sensitive to light Expected: 02/09/2022, Expires: 04/11/2022 [facility] Work Phone: Comment on above: Expected: 02/09/2022, Expires: 2 Start: 02-09-2022 End: 04-11-2022 Thyroxine (T4) free [Mass/volume] in Serum or Plasma T4 FREE/FREE THYROX Lab Routine Ptosis of eyelid, right Right eye sensitive to light Expected: 02/09/2022, Expires: 04/11/2022 [facility] Work Phone: Comment on above: Expected: 02/09/2022, Expires: 2 Start: 02-09-2022 End: 04-11-2022 Triiodothyronine (T3) Free [Mass/volume] in Serum or Plasma T3 FREE BLD Lab Routine Ptosis of eyelid, right Right eye sensitive to light Expected: 02/09/2022, Expires: 04/11/2022 [facility] Work Phone: Comment on above: Expected: 02/09/2022, Expires: 2 Start: 01-23-2022 HIV SCREENING HIV SCREENING [facility] Comment on above: Postponed from 1983 (Declined at t his time) Start: 01-23-2022 SHINGRIX VACCINE (1 of 2) SHINGRIX VACCINE (1 of 2) [facility] Comment on above: Postponed from 2015 (Declined at t his time) Start: 10-04-2021 DEPRESSION ASSESSMENT DEPRESSION ASSESSMENT [facility] Start: 07-11-2021 Hemoglobin A1c/Hemoglobin.total in Blood HBA1C [facility] Start: 06-04-2021 Influenza vaccination INFLUENZA (#1) [facility] Start: 2020 Influenza vaccination LUNG CANCER SCREENING [facility] Start: 03-14-2020 BP CONTROLLED (<130/80) BP CONTROLLED (<130/80) [facility] Start: 2015 Influenza vaccination LUNG CANCER SCREENING [facility] Start: 2015 SHINGRIX VACCINE (1 of 2) SHINGRIX VACCINE (1 of 2) [facility] Start: 04-19-2015 PNEUMOCOCCAL (2 - PCV) PNEUMOCOCCAL (2 - PCV) [facility] Start: 04-19-2015 [facility] Start: 04-19-2015 Pneumococcal Vaccine: 50+ (2 of 2 - PCV) Pneumococcal Vaccine: 50+ (2 of 2 - PCV) [facility] Start: 03-22-2015 Mammography [facility] Start: 03-22-2015 Screening for malignant neoplasm of breast Mammogram Screening [facility] Start: 2010 COLOGUARD (FIT-DNA) [facility] Start: 2010 Colonoscopy COLONOSCOPY [facility] Start: 2010 COLORECTAL CANCER SCREENING COLORECTAL CANCER SCREENING [facility] Start: [address] COLONOGRAPHY [facility] Start: 2010 FECAL OCCULT BLOOD FECAL OCCULT BLOOD [facility] Start: 2010 Screening for malignant neoplasm of colon [facility] Start: 2010 SIGMOIDOSCOPY SIGMOIDOSCOPY [facility] Start: 1984 HEPATITIS B (1 of 3 - Risk 3-dose series) HEPATITIS B (1 of 3 - Risk 3-dose series) [facility] Start: 1984 Hepatitis B Vaccine (1 of 3 - 19+ 3-dose series) Hepatitis B Vaccine (1 of 3 - 19+ 3-dose series) [facility] Start: 1983 Anxiety Screening Anxiety Screening [facility] Start: 1983 Depression Screening Depression Screening [facility] Start: 1983 HIV SCREENING HIV SCREENING [facility] Start: 1965 HEPATITIS B (1 of 3 - 3-dose series) HEPATITIS B (1 of 3 - 3-dose series) [facility] Start: 1965 Hepatitis B Vaccine (1 of 3 - 3-dose series) Hepatitis B Vaccine (1 of 3 - 3-dose series) [facility] End: 10-10-2024 25-hydroxyvitamin D3 [Mass/volume] in Serum or Plasma VITAMIN D 25 HYDROXY Lab Routine 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) Vitamin D deficiency Every 3 months for 60 Occurrences starting 10/11/2023 until 10/10/2024, 1 completed [employer] Work Phone: Comment on above: Every 3 months for 60 Occurrences starti ng 10/11/2023 until 10/10/2024, 1 completed ACETYLCHOLINE REC BI NDING AB ACETYLCHOLINE REC BINDING AB Lab Routine Ptosis of eyelid, right Right eye sensitive to light 03/26/2022 2:13 PM [facility]T [facility] Work [facility]: End: 10-10-2024 ALBUMIN/CREAT RATIO RND UR ALBUMIN/CREAT RATIO RND UR Lab Routine 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) Every 3 months for 60 Occurrences starting 10/11/2023 until 10/10/2024, 1 completed [facility] Work Phone: Comment on above: Every 3 months for 60 Occurrences starti ng 10/11/2023 until 10/10/2024, 1 completed Bacteria identified in Blood by Culture Blood Culture [facility] Work Phone: Bacteria identified in Urine by Culture Urine Culture [facility] Work Phone: Bacteria identified in Urine by Culture URINE CULTURE Microbiology Routine Lower urinary tract symptoms 02/11/2024 2:19 PM EDT [facility] Blood culture [facility] Work Phone: End: 10-10-2024 CBC panel - Blood by Automated count CBC Lab Routine 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) Every 3 months for 60 Occurrences starting 10/11/2023 until 10/10/2024, 1 completed [facility] [employer] Work Phone: Comment on above: Every 3 months for 60 Occurrences starti ng 10/11/2023 until 10/10/2024, 1 completed End: 10-10-2024 Comprehensive metabolic 2000 panel - Serum or Plasma COMP METABOLIC PANEL Lab Routine 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) Every 3 months for 60 Occurrences starting 10/11/2023 until 10/10/2024, 1 completed [facility] Work Phone: Comment on above: Every 3 months for 60 Occurrences starti ng 10/11/2023 until 10/10/2024, 1 completed End: 02-01-2025 CT Chest for screening WO contrast CT LUNG SCREEN WO IVCON Radiology Routine Encounter for screening for lung cancer Former smoker 1 Occurrences starting 01/03/2024 until 02/01/2025 [facility] Work Phone: Comment on above: 1 Occurrences starting 01/03/2024 until 02/01/2025 CT Chest for screeni ng WO contrast CT LUNG SCREEN WO IVCON Radiology Routine Encounter for screening for lung cancer Former smoker 02/02/2024 1:25 PM EDT [facility] Work Phone: End: 03-09-2025 CT Chest for screening WO contrast CT LUNG SCREEN WO IVCON Radiology Routine Former smoker 1 Occurrences starting 02/08/2024 until 03/09/2025 [facility] Work Phone: Comment on above: 1 Occurrences starting 02/08/2024 until 03/09/2025 End: 01-11-2026 CT Chest for screening WO contrast CT LUNG SCREEN WO IVCON Radiology Routine Personal history of tobacco use, presenting hazards to health 1 Occurrences starting 12/12/2024 until 01/11/2026 [facility] Work Phone: Comment on above: 1 Occurrences starting 12/12/2024 until 01/11/2026 End: 05-01-2023 Ct thorax w/o contrast material CT CHEST WO IVCON Radiology Routine Myasthenia gravis (HCC) 1 Occurrences starting 04/01/2022 until 05/01/2023 [facility] Work Phone: Comment on above: 1 Occurrences starting 04/01/2022 until 05/01/2023 End: 08-02-2023 Ct thorax w/o contrast material CT CHEST WO IVCON Radiology Routine Malignant neoplasm of thymus (HCC) 1 Occurrences starting 07/03/2022 until 08/02/2023 [facility] Work Phone: Comment on above: 1 Occurrences starting 07/03/2022 until 08/02/2023 End: 07-17-2022 Ct thorax w/o contrast material [facility] Work Phone: Comment on above: 1 Occurrences starting 07/17/2022 until 07/17/2022 End: 11-16-2025 DBT Breast - bilateral screening DIANNA SCREENING [facility] Radiology Routine Encounter for screening mammogram for breast cancer 1 Occurrences starting 10/17/2024 until 11/16/2025 [facility] Work Phone: Comment on above: 1 Occurrences starting 10/17/2024 until 11/16/2025 End: 01-20-2024 ECG COMPLETE ECG COMPLETE ECG Routine Screening for ischemic heart disease 1 Occurrences starting 01/19/2023 until 01/20/2024 [facility] Work Phone: Comment on above: 1 Occurrences starting 01/19/2023 until 01/20/2024 End: 12-19-2023 Echocardiography ECHO Cardiology Routine Generalized edema 1 Occurrences starting 12/18/2022 until 12/19/2023 [facility] Work Phone: Comment on above: 1 Occurrences starting 12/18/2022 until 12/19/2023 End: 01-16-2024 Echocardiography ECHO Cardiology Routine Pericardial effusion (noninflammatory) 1 Occurrences starting 01/15/2023 until 01/16/2024 [facility] Work Phone: Comment on above: 1 Occurrences starting 01/15/2023 until 01/16/2024 End: 01-26-2024 Echocardiography ECHO Cardiology Routine Pericardial effusion 1 Occurrences starting 01/25/2023 until 01/26/2024 [facility] Work Phone: Comment on above: 1 Occurrences starting 01/25/2023 until 01/26/2024 End: 10-10-2024 Hemoglobin A1c in Blood HGB A1C Lab Routine 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) Every 3 months for 60 Occurrences starting 10/11/2023 until 10/10/2024, 1 completed [facility] Work Phone: Comment on above: Every 3 months for 60 Occurrences starti ng 10/11/2023 until 10/10/2024, 1 completed Hzv zoster vacc recombinant adjuvanted im njx ZOSTER VACCINE, RECOMBINANT (SHINGRIX) Immunization/Injection Routine Encounter for immunization 1 Occurrences starting 07/22/2023 [facility] Work Phone: Comment on above: 1 Occurrences starting 07/22/2023 INFLUENZA VACCINE, A GE 6 MO - 64 YR, QUADRIVALENT (AFLURIA, FLULAVAL, FLUZONE) INFLUENZA VACCINE, AGE 6 MO - 64 YR, QUADRIVALENT (AFLURIA, FLULAVAL, FLUZONE) Immunization/Injection Routine Encounter for immunization Ordered: 07/22/2023 [facility] Work Phone: Comment on above: Ordered: 07/22/2023 LRP4 AUTOANTIBODY TEST LRP4 AUTO ANTIBODY TEST Lab Routine Ptosis of eyelid, right Right eye sensitive to light 03/26/2022 2:13 PM EDT [facility] Work Phone: End: 12-30-2024 LUNG DIFFUSION CAPACITY (DLCO) LUNG DIFFUSION CAPACITY (DLCO) PFT Routine Post-COVID chronic dyspnea 1 Occurrences starting 12/01/2023 until 12/30/2024 [facility] Work Phone: Comment on above: 1 Occurrences starting 12/01/2023 until 12/30/2024 End: 01-05-2026 LUNG DIFFUSION CAPACITY (DLCO) LUNG DIFFUSION CAPACITY (DLCO) PFT Routine Post-COVID chronic dyspnea Former smoker 1 Occurrences starting 12/06/2024 until 01/05/2026 [facility] Comment on above: 1 Occurrences starting 12/06/2024 until 01/05/2026 LUNG DIFFUSION CAPAC ITY (DLCO) LUNG DIFFUSION CAPACITY (DLCO) PFT Routine Post-COVID chronic dyspnea Former smoker 12/25/2024 2:00 PM EDT [facility] Work Phone: End: 01-05-2026 LUNG VOLUMES LUNG VOLUMES PFT Routine Post-COVID chronic dyspnea Former smoker 1 Occurrences starting 12/06/2024 until 01/05/2026 [facility] Comment on above: 1 Occurrences starting 12/06/2024 until 01/05/2026 LUNG VOLUMES LUNG VOLUMES PFT Routine Post-COVID chronic dyspnea Former smoker 12/25/2024 2:00 PM EDT [facility] Work Phone: End: 01-01-2024 DIANNA SCREENING DIANNA SCREENING Radiology Routine Encounter for screening mammogram for breast cancer 1 Occurrences starting 12/02/2022 until 01/01/2024 [facility] Work Phone: Comment on above: 1 Occurrences starting 12/02/2022 until 01/01/2024 End: 12-09-2024 MG Breast Screening DIANNA SCREENING Radiology Routine Encounter for screening mammogram for breast cancer 1 Occurrences starting 11/10/2023 until 12/09/2024 [facility] Work Phone: Comment on above: 1 Occurrences starting 11/10/2023 until 12/09/2024 MUSK ANTIBODY TEST MUSK ANTIBODY TEST Lab Routine Ptosis of eyelid, right Right eye sensitive to light 03/26/2022 2:13 PM EDT [facility] Work Phone: OXIMETRY - NOCTURNAL OXIMETRY - NOCTURNAL Procedures Routine Post-COVID chronic dyspnea Chronic hypoxemic respiratory failure (HCC) Ordered: 07/21/2022 [facility] Work Phone: Comment on above: Ordered: 07/21/2022 OXIMETRY - NOCTURNAL OXIMETRY - NOCTURNAL Procedures Routine Post-COVID chronic dyspnea Chronic hypoxemic respiratory failure (HCC) Ordered: 10/26/2022 [facility] Work Phone: Comment on above: Ordered: 10/26/2022 End: 11-25-2023 OXIMETRY WITH AMBULATION OXIMETRY WITH AMBULATION PFT Routine Post-COVID chronic dyspnea Chronic hypoxemic respiratory failure (HCC) 1 Occurrences starting 10/26/2022 until 11/25/2023 [facility] Work Phone: Comment on above: 1 Occurrences starting 10/26/2022 until 11/25/2023 End: 12-30-2024 OXIMETRY WITH AMBULATION OXIMETRY WITH AMBULATION PFT Routine Post-COVID chronic dyspnea 1 Occurrences starting 12/01/2023 until 12/30/2024 [facility] Work Phone: Comment on above: 1 Occurrences starting 12/01/2023 until 12/30/2024 [facility] Work Phone: Patient referral [facility] Work Phone: Pneumococcal vaccination PNEUMOC OCCAL VACCINE (PREVNAR 20) Immunization/Injection Routine Encounter for immunization 1 Occurrences starting 07/22/2023 [facility] Work Phone: Comment on above: 1 Occurrences starting 07/22/2023 POST VOID RESIDUAL POST VOID RES IDUAL Procedures Routine Urinary retention Complicated UTI (urinary tract infection) Ordered: 09/29/2022 [facility] Work Phone: Comment on above: Ordered: 09/29/2022 Protein [Mass/time] in 24 hour Urine PROTEIN, 24 HOUR URINE Lab Routine Pedal edema Ordered: 11/28/2024 [facility] Comment on above: Ordered: 11/28/2024 End: 07-30-2024 Radex spine lumbosacral minimum 4 views XR LUMBAR MOTION 4V AP/LAT/ FLEX/EXT Radiology Routine Lumbar spondylosis 1 Occurrences starting 07/01/2023 until 07/30/2024 [facility] Work Phone: Comment on above: 1 Occurrences starting 07/01/2023 until 07/30/2024 Radex spine lumbosac ral minimum 4 views XR LUMBAR MOTION 4V AP/LAT/ FLEX/EXT Radiology Routine Lumbar spondylosis 07/01/2023 3:18 PM EDT [facility] Work Phone: End: 01-23-2023 Screening mammography bi 2-view breast inc cad DIANNA SCREENING Radiology Routine Encounter for screening mammogram for breast cancer 1 Occurrences starting 12/24/2021 until 01/23/2023 [facility] Work Phone: Comment on above: 1 Occurrences starting 12/24/2021 until 01/23/2023 End: 12-30-2024 SPIROMETRY WITH DILATOR IF OBSTRUCTED SPIROMETRY WITH DILATOR IF OBSTRUCTED PFT Routine Post-COVID chronic dyspnea 1 Occurrences starting 12/01/2023 until 12/30/2024 [facility] Work Phone: Comment on above: 1 Occurrences starting 12/01/2023 until 12/30/2024 End: 01-05-2026 SPIROMETRY WITH DILATOR IF OBSTRUCTED SPIROMETRY WITH DILATOR IF OBSTRUCTED PFT Routine Post-COVID chronic dyspnea Former smoker 1 Occurrences starting 12/06/2024 until 01/05/2026 [facility] [employer] Work Phone: Comment on above: 1 Occurrences starting 12/06/2024 until 01/05/2026 SPIROMETRY WITH DILA TOR IF OBSTRUCTED SPIROMETRY WITH DILATOR IF OBSTRUCTED PFT Routine Post-COVID chronic dyspnea Former smoker 12/25/2024 2:00 PM EDT [facility] Work Phone: Thyrotropin [Units/volume] in Serum or Plasma TSH BLD Lab Routine Ptosis of eyelid, right Right eye sensitive to light 03/26/2022 2:13 PM EDT [facility] Work Phone: End: 10-10-2024 Thyrotropin [Units/volume] in Serum or Plasma TSH BLD Lab Routine 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) Acquired hypothyroidism Every 3 months for 60 Occurrences starting 10/11/2023 until 10/10/2024, 1 completed [employer] Work Phone: Comment on above: Every 3 months for 60 Occurrences starti ng 10/11/2023 until 10/10/2024, 1 completed Thyroxine (T4) free [Mass/volume] in Serum or Plasma T4 FREE/FREE THYROX Lab Routine Ptosis of eyelid, right Right eye sensitive to light 03/26/2022 2:13 PM EDT [facility] Work Phone: End: 10-10-2024 Thyroxine (T4) free [Mass/volume] in Serum or Plasma T4 FREE/FREE THYROX Lab Routine 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) Acquired hypothyroidism Every 3 months for 60 Occurrences starting 10/11/2023 until 10/10/2024, 1 completed [employer] [facility] Work Phone: Comment on above: Every 3 months for 60 Occurrences starti ng 10/11/2023 until 10/10/2024, 1 completed Triiodothyronine (T3 ) Free [Mass/volume] in Serum or Plasma T3 FREE BLD Lab Routine Ptosis of eyelid, right Right eye sensitive to light 03/26/2022 2:13 PM EDT [facility] Work Phone: End: 10-10-2024 Triiodothyronine (T3) Free [Mass/volume] in Serum or Plasma T3 FREE BLD Lab Routine 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) Acquired hypothyroidism Every 3 months for 60 Occurrences starting 10/11/2023 until 10/10/2024, 1 completed [facility] Work Phone: Comment on above: Every 3 months for 60 Occurrences starti ng 10/11/2023 until 10/10/2024, 1 completed UA DIP B/O UA DIP B/O Lab R outine Lower urinary tract symptoms Ordered: 02/11/2024 [facility] Work Phone: Comment on above: Ordered: 02/11/2024 End: 06-22-2024 XR FOREARM GENERAL 2V AP/LAT RIGHT XR FOREARM GENERAL 2V AP/LAT RIGHT Radiology Routine Fall, initial encounter Right arm pain Right hand pain 1 Occurrences starting 05/24/2023 until 06/22/2024 [facility] Work Phone: Comment on above: 1 Occurrences starting 05/24/2023 until 06/22/2024 XR FOREARM GENERAL 2 V AP/LAT RIGHT XR FOREARM GENERAL 2V AP/LAT RIGHT Radiology Routine Fall, initial encounter Right arm pain Right hand pain 05/24/2023 3:32 PM EDT [facility] Work Phone: End: 06-22-2024 XR HAND GENERAL 3V PA/LAT/OBL RIGHT XR HAND GENERAL 3V PA/LAT/OBL RIGHT Radiology Routine Fall, initial encounter Right arm pain Right hand pain 1 Occurrences starting 05/24/2023 until 06/22/2024 [facility] Work Phone: Comment on above: 1 Occurrences starting 05/24/2023 until 06/22/2024 XR HAND GENERAL 3V PA/LAT/OBL RIGHT XR HAND GENERAL 3V PA/LAT/OBL RIGHT Radiology Routine Fall, initial encounter Right arm pain Right hand pain 05/24/2023 3:32 PM EDT [facility] Work Phone: End: 07-14-2025 XR Shoulder - left 2 Views XR SHOULDER LIMITED 2V AP/TRUE AP LEFT Radiology Routine Injury of left rotator cuff, subsequent encounter 1 Occurrences starting 06/14/2024 until 07/14/2025 [facility] Work Phone: Comment on above: 1 Occurrences starting 06/14/2024 until 07/14/2025 XR Shoulder - left 2 Views XR SHOULDER LIMITED 2V AP/TRUE AP LEFT Radiology Routine Injury of left rotator cuff, subsequent encounter 06/14/2024 2:32 PM EDT [facility] XR Shoulder - left 2 Views XR SHOULDER LIMITED 2V AP/TRUE AP LEFT Radiology Routine Other closed nondisplaced fracture of proximal end of left humerus, initial encounter 06/26/2024 3:34 PM EDT [facility] Work Phone: [facility] Immunizations Immunization Date Immunization Notes Care Provider Emerita morales 08-31-2018 influenza virus vaccine, unspecified formulation Ericka Zamora OD Work Phone: [facility] 06-26-2015 tetanus toxoid, redu jolie diphtheria toxoid, and acellular pertussis vaccine, adsorbed Ericka Zamora OD Work Phone: [facility] 06-25-2015 tetanus and diphther ia toxoids, adsorbed, preservative free, for adult use (2 Lf of tetanus toxoid and 2 Lf of diphtheria toxoid) Dr. Sarina Adams MD Work Phone: [facility] 06-25-2015 tetanus and diphther ia toxoids, adsorbed, preservative free, for adult use (5 Lf of tetanus toxoid and 2 Lf of diphtheria toxoid) Ericka Zamora OD Work Phone: [facility] 04-19-2014 pneumococcal polysaccharide vaccine, 23 valent Ericka Zamora OD Work Phone: [facility] NEGATED: Highlighted row has not occurred!07-22-2023 influenza, injectable, quadrivalent, contains preservative Denise Alvarado APRN.QUALITY ASSURANCE PRACTICE MANAGER Work Phone: [facility] Work Phone: Comment on above: Deferred: Postponed - Maylin Delaney Payers Date Payer Category Payer Self-pay [id number] 2024 Private Health Insurance [employer] [id number] 2024 Unknown [employer] X [id number] 2024-Present [phone] [address] [address] [place] [address] O [id number] 2024 Unknown [id number] 2014 Medicaid [employer] [id number] 2014-Present [phone] [address] [place] [address] Medicaid [id number] 2014 Medicaid [id number] 2014 Unknown [employer] [id number] 2014 Unknown [id number] Unknown [id number] 462 Unknown [id number]. 462 Unknown [id number] [id number]. 462 Unknown [id number]. 462 Unknown [id number] [id number]. 462 Unknown [id number]. 462 Unknown [id number] [id number]. 462 Unknown [id number] [id number]. 462 Unknown [id number] [id number]. 462 Unknown [id number] [id number]. 462 Unknown [id number] 2.16.840.1.755819.3.579.2. 462 Unknown [id number] [id number]. 462 Unknown [id number] [id number]. 462 Unknown [id number]. 462 Social History Date Type Detail Facility Start: 03-08-2014 End: 07-09-2025 Tobacco smoking status NHIS Ex-smoker [facility] Start: 11-04-1983 End: 11-04-2013 History of tobacco use Current smoker [facility] Start: 11-04-1983 End: 11-04-2013 History of tobacco use Cigarette Smoker [facility] Start: 03-08-2014 End: 03-16-2023 Cigarettes smoked current (pack per day) - Reported 1 [facility] Start: 03-08-2014 End: 06-08-2024 Tobacco use and exposure Smokeless tobacco non-user [facility] Start: 12-25-2021 End: 09-29-2022 Alcohol intake Current drinker of alcohol (finding) [facility] Start: 08-15-2020 End: 12-14-2022 History SDOH Alcohol Frequency 3 [facility] Start: 08-15-2020 End: 10-23-2020 History SDOH Alcohol Std Drinks 1 [facility] Start: 12-09-2021 History SDOH Alcohol Comment wine cool every once in a while [facility] Start: 08-15-2020 End: 10-23-2020 History SDOH Social Connections Membership 2 [facility] Start: 08-15-2020 End: 12-14-2022 History SDOH Social Connections Living 4 [facility] Start: 08-15-2020 End: 12-14-2022 History SDOH Physical Activity DPW 0 [facility] Start: 08-15-2020 Education 10 [facility] Start: 1965 Sex Assigned At Female [facility] Start: 11-09-2021 End: 08-28-2022 Exposure to SARS-CoV-2 (event) Not sure [facility] Start: 06-27-2022 End: 07-07-2022 Exposure to SARS-CoV-2 (event) Unable to assess [facility] Work Phone: Start: 08-10-2022 End: 08-12-2023 Tobacco smoking status NHIS Unknown if ever smoked [facility] Start: 10-07-2021 Alcohol intake Current non-drinker of alcohol (finding) [facility] Start: 03-26-2023 End: 05-29-2025 Alcohol intake Ex-drinker (finding) [facility] Start: 12-14-2022 End: 03-16-2023 Social connection and isolation panel [facility] Do you belong to any clubs or organizations such as lutheran groups, unions, fraternal or athletic groups, or school groups? No [facility] Are you now , , , , never or living with a partner? [facility] How often to you hav e a drink containing alcohol? Monthly or less [facility] How many standard dr inks containing alcohol do you have on a typical day? 1 or 2 [facility] How often do you hav e 6 or more drinks on 1 occasion? Never [facility] How hard is it for y ou to pay for the very basics like food, housing, medical care, and heating Not very hard [facility] Start: 09-04-2012 Adult Depression Screening Assessment 2 [facility] Work Phone: Do you feel stress - tense, restless, nervous, or anxious, or unable to sleep at night because your mind is troubled all the time - these days [OSQ] Not at all [facility] (I/We) worried whejimmy er (my/our) food would run out before (I/we) got money to buy more. Never true [facility] Start: 01-11-2021 Gender identity Identifies as female gender (finding) [facility] Start: 01-11-2021 Sexual orientation Heterosexual (finding) [facility] Do you feel stress - tense, restless, nervous, or anxious, or unable to sleep at night because your mind is troubled all the time - these days [OSQ] Only a little [facility] Medical Equipment Procedure Code Equipment Code Equipment Original Text Equipment Identifier Dates [id number]-[id number] Implant - [id number] Start: 06-26-2015 Stent Uret 6fr 24cm W/O 2 - [id number] Start: 04-25-2014 Comment on above: Description: uretera l Stent [id number], [id number], [id number], [id number], [id number], [id number], [id number], [id number], [id number], [id number], [id number], [id number], [id number], [id number] Start: 01-14-2021 End: 05-02-2025 Comment on above: Test blood sugar(s) 4 times daily. Dx: Other DM Code E11.40 Insulin: Yes inject 1 subcutaneou sly four times a day Test blood sugar(s) 3 times daily. Dx: Type 2 DM - Uncontrolled E11.65 Insulin: Yes Test blood sugar(s) 4 times daily. Dx: Type 2 DM - Controlled E11.9 Insulin: Yes Test blood sugar(s) 4 times daily. Dx: E11.9 Insulin: Yes use 1 PEN NEEDLE to inject MEDICATION subcutaneously four times a day Goals Date Patient Goal Desired Activity /State Personal health goal Personal health goal Functional Status Date Assessment Result Facility 07-12-2025 Functional status [facility] Work Phone: 02-06-2015 Are you deaf, or do you have serious difficulty hearing No 02/06/2015 2:42 PM Ruby Fountain LPN No [facility] 02-06-2015 Are you blind, or do you have serious difficulty seeing, even when wearing glasses No 02/06/2015 2:42 PM Ruby Fountain LPN No [facility] 02-06-2015 Do you have serious difficulty walking or climbing stairs No 02/06/2015 2:42 PM Ruby Fountain LPN No [facility] 02-06-2015 Do you have difficul ty dressing or bathing No 02/06/2015 2:42 PM Ruby Fountain LPN No [facility] 02-06-2015 Because of a physica l, mental, or emotional condition, do you have difficulty doing errands alone such as visiting a physician's office or shopping No 02/06/2015 2:42 PM Rbuy Fountain LPN No [facility] Mental Status Date Assessment Result Facility 07-12-2025 Cognitive function Voice/Name [facility] Work Phone: 07-09-2025 Cognitive function Voice/Name [facility] Work Phone: 01-05-2023 Cognitive function Voice/Name [facility] Work Phone: 08-09-2022 Cognitive function Level Of Cons ciousness Awake;Alert;Appropriate;Fol lows Commands [facility] Work Phone: 02-06-2015 Because of a physica l, mental, or emotional condition, do you have serious difficulty concentrating, remembering, or making decisions No 02/06/2015 2:42 PM EDT Ruby Coffman LPN No [facility] Clinical Notes 05-09-2021 to 08-09-2025 Note Date & Type Note Facility 08-09-2025 Note HNO ID: [id number] Author: DENISE ALVARADO APRN.QUALITY ASSURANCE PRACTICE MANAGER Service: ? Author Type: Nurse Specialist Type: Progress Notes Filed: 08/09/2025 15:28 Note Text: Subjective Patient ID: Samantha is a 59 year old female who presents for No chief complaint on file.. HPI Samantha Romero for hospital discharge follow-up visit. She was admitted to [facility] July 09 through July 12, 2025 for acute on chronic heart failure with preserved ejection fraction. Discharge diagnoses acute on chronic heart failure with preserved ejection fraction, acute on chronic diastolic heart failure fluid overloaded acute and chronic respiratory failure with hypoxia. She presented to the ER from [employer] due to increased shortness of breath on exertion weight gain and abnormal findings on CT scan. Exam in ER showed pitting edema and weight gain dyspnea on exertion and hypoxia at 84% on nasal cannula. Chest x-ray completed showed cardiomegaly and vascular congestion with interstitial edema. BNP noted to be 237. She was treated with IV Lasix. Hospitalist contacted for admission. She improved clinically with IV diuresis. Her status improved she was able to ambulate with improved symptoms. Switch to oral diuretics which she tolerated without decompensation overnight, concern that exacerbation was secondary to noncompliance with medical therapy missing doses of Lasix, lack of fluid restriction as well as undertreated hypothyroid. She was advised to follow-up with lab work in 2 to 3 days with primary care. She was advised to take Lasix 40 mg twice daily. She was advised to weigh yourself daily and limit sodium intake. Advised to take levothyroxine on an empty stomach. She was advised to stop meloxicam to preserve kidney function. Jardiance was taken off medication list due to not taking it. Today reports Edema: - reports persistent edema in lower extremities, though improved since discharge. - states taking Lasix BID; sttes has not run out of medication, however no fill noted in last 90 days on EPIC review. - Reports weighed 268 lbs yesterday, 271 lbs today. She weighed herself for the first time yesterday she reports due to her not having a scale - Using a walker due to difficulty ambulating and leg weakness and heaviness. Dyspnea: - No change in dyspnea since hospital discharge. - However notes oxygen requirement decreased to 2 L/min. Hoarseness: - Onset of hoarseness; denies recent illness. She reports she did stop taking omeprazole. Diabetes Mellitus: - Blood glucose levels: 230 mg/dL last night, 226 mg/dL this morning. - Insulin regimen: 86 units of long-acting insulin daily, 10 units with meals, plus sliding scale coverage. - Taking Trulicity. Hypothyroidism: - previously non-adherent to thyroid medication. Chronic Back Pain: - Chronic back pain managed with Reynolds and gabapentin. - Pain exacerbated by prolonged standing, such as doing dishes. - Requests refill for Reynolds, due on the or . - Reports some relief with current pain management regimen. Hypothyroidism. TSH Date Value 07/03/2025 17.200 mIU/L 03/28/2025 60.600 mIU/L 04/10/2021 2.340 uU/mL 04/10/2020 1.210 uU/mL ) DIABETES MELLITUS: Patient's last HgA1C was Hemoglobin A1C (%) Date Value 07/03/2025 8.5 03/28/2025 10.0 04/10/2021 8.3 10/25/2020 10.3 Hemoglobin A1C (POCT) (%) Date Value 10/21/2022 11.0 ) Without report of headache, chest pain, palpitations, dyspnea, and PND. Last 14 Encounter BP Readings: Date: BP: 08/09/2025 145/77 08/08/2025 144/70 07/09/2025 116/68 07/03/2025 125/76 05/29/2025 122/62 05/22/2025 118/79 03/28/2025 112/54 12/08/2024 115/67 12/06/2024 122/64 11/28/2024 125/74 10/16/2024 146/70 06/14/2024 100/60 06/08/2024 102/66 05/16/2024 140/62 Creatinine Date Value Ref Range Status 07/03/2025 1.29 (H) 0.58 - 0.96 mg/dL Final 05/29/2025 1.34 (H) 0.58 - 0.96 mg/dL Final 03/28/2025 1.42 (H) 0.58 - 0.96 mg/dL Final 12/06/2024 1.39 (H) 0.58 - 0.96 mg/dL Final ROS Constitutional: (+) weakness Ears/Nose/Mouth/Throat: (+) hoarseness Cardiovascular: (+) lower extremity edema Musculoskeletal: (+) gait difficulty Objective LMP 04/27/2016 Physical Exam Vitals and nursing note reviewed. Constitutional: Appearance: Normal appearance. HENT: Head: Normocephalic. Eyes: Conjunctiva/sclera: Conjunctivae normal. Cardiovascular: Rate and Rhythm: Normal rate and regular rhythm. Heart sounds: Normal heart sounds. Pulmonary: Effort: Pulmonary effort is normal. Breath sounds: Normal breath sounds. Comments: O2 by NC Abdominal: General: Bowel sounds are normal. Palpations: Abdomen is soft. Musculoskeletal: Lumbar back: Tenderness present. Decreased range of motion. Right lower leg: Edema (2+) present. Left lower leg: Edema (2+) present. Skin: General: Skin is warm and dry. Neurological: Mental Status: She is (more content not included)... [facility] 08-03-2025 Note [facility] Medical Records Department [address] [place] [address] Discharge Summary 08/03/25 1602 MR#: [id number] Acct: [id number] Name: SAMANTHA ROMERO Rep #: [id number] : 1965 59 From: Sol Mock DO PCP: Dr. Sarina Adams MD Status:DIS IN Location: [facility] [id number] Providers Date of Admission: 08/01/25 Date of Discharge: 08/03/25 Primary Care Physician: Dr. Sarina Adams MD Consultations 08/03/25 08:06 Consult: Inpatient Palliative Care Routine Consulting Provider: Siobhan Cosme Reason for Consult: CHF, home O2 EMERGENT Consult: No MD Notified: Yes Date Notified: 08/02/25 Time Notified: 16:30 Method of Notification: Verbal Reason For Visit: CHF EXACERBATION Diagnosis Discharge Diagnosis (1) Severe hypothyroidism: Status: Acute Code(s): E03.9 - Hypothyroidism, unspecified (2) CHF (congestive heart failure): Status: Acute Code(s): I50.9 - Heart failure, unspecified Qualifiers: Heart failure chronicity: acute on chronic Heart failure type: diastolic Qualified Code(s): I50.33 - Acute on chronic diastolic (congestive) heart failure (3) Weakness: Status: Acute Code(s): R53.1 - Weakness (4) Dyspnea: Status: Acute Code(s): R06.00 - Dyspnea, unspecified Qualifiers: Dyspnea type: shortness of breath Qualified Code(s): R06.02 - Shortness of breath (5) 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re with preserved ejection fraction: Status: Acute Code(s): I50.33 - Acute on chronic diastolic (congestive) heart failure (6) Acute on chronic hypoxic respiratory failure: Status: Chronic Code(s): J96.21 - Acute and chronic respiratory failure with hypoxia (7) Goals of care, counseling/discussion: Status: Acute Code(s): Z71.89 - Other specified counseling (8) Palliative care encounter: Status: Acute Code(s): Z51.5 - Encounter for palliative care (9) CHF exacerbation: Status: Chronic Code(s): I50.9 - Heart failure, unspecified Plan 1. Hypothyroidism secondary to noncompliance with outpatient thyroid replacement-patient will receive Synthroid here, it is somewhat problematic to prevent this from happening as the patient seems to be noncompliant with medications. Case management is working on additional resources to help the patient stay compliant on her medications #2 moderate pericardial effusion-patient shows no sign of tamponade, she is hemodynamically stable, it appears that she has had a chronic pericardial effusion. No treatment at this time. #3 chronic hypoxic respiratory failure-patient is on supplemental oxygen at this time, pulse ox will be monitored #4 class III obesity-complicates care, management, recovery, and prognosis #5 type 2 diabetes-is unknown whether the patient has a working glucose monitor at home, case management will discuss this with her, patient blood sugars will be monitored, sliding scale insulin will be administered as indicated. #6 acute on chronic congestive heart failure with reduced ejection fraction-patient's echocardiogram showed an EF of 40%, patient will be maintained on oral Lasix at this time, she is on minimal nasal cannula oxygen. #7 cardiomyopathy-etiology unclear at this point, could be related to severe hypothyroidism, patient will need an outpatient echocardiogram in the near future to recheck her EF after she resumes her Synthroid Total clinical time spent by myself addressing the patient's medical issues, reviewing all of her data, and collaborating with the patient's care team: 35 minutes Medications at Discharge Home Medications estradiol 0.01% (0.1 mg/gram) vaginal cream 3 g vaginal .COMPLEX health maintenance 03/25/21 fenofibrate 160 mg tablet 160 mg PO DAILY cholesterol 03/25/21 dicyclomine 10 mg capsule 10 mg PO ACHS abdominal pain 07/06/21 rosuvastatin 10 mg tablet 10 mg PO DAILY cholesterol 07/06/21 cholecalciferol (vitamin D3) 125 mcg (5,000 unit) capsule 125 mcg PO DAILY SUPPLEMENT 05/03/24 omeprazole 40 mg capsule,delayed release 40 mg PO DAILY STOMACH 05/03/24 dulaglutide 4.5 mg/0.5 mL subcutaneous pen injector (Trulicity) 4.5 mg subcut QWEEK BLOOD SUGAR 10/27/24 gabapentin 800 mg tablet 800 mg PO TID NEUROPATHY 07/09/25 hydrocodone-acetaminophen 5-325mg 5mg-325mg 1 tab PO Q6H PRN pain 07/09/25 peg 400-propylene glycol 0.4 %-0.3 % eye drops (Systane Ultra) 1 drp ophthalmic (eye) 4X/DAY DRY EYE 07/09/25 meloxicam 15 mg tablet 15 mg PO DAILY PRN pain 08/01/25 furosemide 40 mg tablet 40 mg PO BIDLX #60 tabs 08/03/25 insulin degludec 100 unit/mL (3 mL) subcutaneous pen (Tresiba FlexTouch U-100 insulin) 35 unit (0.35 mL) subcut QHS diabetes #1 mL 08/03/25 insulin lispro 100 unit/mL subcutaneous pen (Humalog KwikPen (U-100) Insulin) 10 unit (0.1 mL) subcut TIDCM DIABETES #1 mL 08/03/25 levothyroxine 150 mcg tablet 300 mcg (2 x 150 mcg) PO DAILY@0600 #30 tabs 08/03/25 (more content not included)... [facility] 07-12-2025 Consult note [facility] 07-12-2025 Discharge summary Note Date/Time July 12, 2025 3:08pm [facility] Medical Records Department [address] [place] [address] Discharge Summary 07/12/25 1500 MR#: [id number] Acct: [id number] Name: SAMANTHA ROMEOR Rep #:[id number] : 1965 59 From: Asya Hernandez MD PCP: Dr. Sarina Adams MD Status:AD M IN [facility] Providers Date of Admission: 07/09/25 Date of Discharge: 07/12/25 Primary Care Physician: Dr. Sarina Adams MD Reason For Visit: AECHF Diagnosis Discharge Diagnosis (1) 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re with preserved ejection fraction: Status: Acute Code(s): I50.33 - Acute on chronic diastolic (congestive) heart failure (2) Fluid overload: Status: Acute Code(s): E87.70 - Fluid overload, unspecified (3) Acute on chronic hypoxic respiratory failure: Status: Chronic Code(s): J96.21 - Acute and chronic respiratory failure with hypoxia Plan # Acute on chronic hypoxic respiratory failure suspect secondary to heart failure with preserved ejection fraction #Type 2 diabetes mellitus #Hypothyroidism # Normocytic anemia #GERD #Morbid obesity Medications at Discharge Home Medications estradiol 0.01% (0.1 mg/gram) vaginal cream 3 g vaginal .COMPLEX health maintenance 03/25/21 fenofibrate 160 mg tablet 160 mg PO DAILY cholesterol 03/25/21 vitamin E 268 mg (400 unit) capsule 400 unit PO DAILY supplement 03/25/21 dicyclomine 10 mg capsule 10 mg PO ACHS abdominal pain 07/06/21 insulin degludec 100 unit/mL (3 mL) subcutaneous pen (Tresiba FlexTouch U-100 insulin) 86 unit subcut QHS diabetes 07/06/21 rosuvastatin 10 mg tablet 10 mg PO DAILY cholesterol 07/06/21 cholecalciferol (vitamin D3) 125 mcg (5,000 unit) capsule 125 mcg PO DAILY SUPPLEMENT 05/03/24 omeprazole 40 mg capsule,delayed release 40 mg PO DAILY STOMACH 05/03/24 dulaglutide 4.5 mg/0.5 mL subcutaneous pen injector (Trulicity) 4.5 mg subcut QWEEK BLOOD SUGAR 10/27/24 furosemide 40 mg tablet 40 mg PO BID EDEMA 07/09/25 gabapentin 800 mg tablet 800 mg PO TID NEUROPATHY 07/09/25 hydrocodone-acetaminophen 5-325mg 5mg-325mg 1 tab PO Q6H PRN pain 07/09/25 insulin lispro 100 unit/mL subcutaneous pen (Humalog KwikPen (U-100) Insulin) 22unit subcut TIDCM DIABETES 07/09/25 insulin lispro 100 unit/mL subcutaneous pen (Humalog KwikPen (U-100) Insulin) See Protocol subcut DAILY DIABETES 07/09/25 levothyroxine 300 mcg tablet 300 mcg PO DAILY THYROID 07/09/25 peg 400-propylene glycol 0.4 %-0.3 % eye drops (Systane Ultra) 1 drp ophthalmic (eye) 4X/DAY DRY EYE 07/09/25 potassium chloride 10 mEq tablet,extended release 10 meq PO DAILY POTASSIUM 07/09/25 Hospital Course Procedures Transthoracic echo Summary of Care Provided Minutes Spent on Discharge: 34 Hospital Course: 59-year-old female with a history of hypothyroidism, type 2 diabetes, chronic hypoxic respiratory failure on 2 L nasal cannula, GERD who presented [facility] ED 07/10/2025 from her pulmonary office due to increased shortness of breath on exertion and weight gain. She has reportedly gained 13 pounds since last week when may have missed a few doses of her Lasix. She had aCT scan earlier today reportedly which showed fluid in her lungs and pulmonology sent her to the ED from the office for further evaluation. In the ED patient had pitting edema, noted weight gain and dyspnea on exertion and was hypoxic to 84% on nasal cannula. Chest x-ray showed cardiomegaly and vascular congestion with interstitial edema, BNP only noted to be 237 however unclear significance given patient's entire picture highly suggestive of fluid overload. Patient given 40 of IV Lasix and hospitalist contacted for admission. Patient clinically improved with IV diuresis, patient was able to ambulate with improvedsymptoms, she was switched to p.o. diuretics and did tolerate these with no decompensation overnight, suspect her heart failure exacerbation was secondary to noncompliance given initial reported missing doses of Lasix, lack of fluid restriction, as well as hypothyroidism as TSH still 14 and on discussion patienttaking Synthroid at night/suboptimally. Patient stable on home dose of Lasix with fluid restriction and Synthroid in the a.m., feel it is reasonable to discharge home on home regimen with education on fluid restriction, importance of taking her medications and taking Synthroid in the a.m. Discussed Synthroid instructions (as below) with patient she verbalized understanding, stressed fluid restriction and compliance of Lasix and patient verbalized understanding. At this point breathing is improving and suspect patient remaining in the hospital will lead to increased weakness and decreased functional status. Discussed with patient discharge versus continued hospitalization given the above concerns and the fact that she is tolerating oral Lasix and she agrees with discharge home. Discharge instructions as follows: -Would recommend lab work (BMP) to check your kidney function in 2 to 3 days through your primary care physician's office. Please call their office upon discharge to obtain order for lab work. -Resume your Lasix 40 mg once in the morning and once in the afternoon, it is very important that you take these medications on time -Weigh yourself every day. A sudden weight gain can mean you are retaining fluid. Weigh yourself at the same time of day and in the same kind of clothes. Ideally, weigh yourself first thing in the morning after you empty your bladder,but before you eat breakfast. -Please call your physician if your weight goes up by more than 2 pounds in 1 day or 5 pounds in 1 week. This can be a sign that you are retaining more fluid than you should be. Clues to weight gain include checking your ankles for swelling, or noticing you are short of breath when you lie down -Please limit your sodium intake to less than 3 g/day. And your fluid intake toless than 1800 mL a day Here are tips: Limit canned, dried, packaged, and fast foods. Don't add salt to your food at the table. Season foods with herbs instead of salt when you cook. When you eat out, ask that the chef de cuisine not add any salt to your dish. Don't eat fried or greasy foods. Be careful of bottled beverages. They can contain a lot of salt -Call 911 right away if you have: -Severe shortness of breath, such that you can't catch your breath even while resting -Severe chest pain that does not resolve with rest or nitroglycerin -[place], foamy mucus with cough and shortness of breath -An ongoing rapid or irregular heartbeat -Passing out or fainting -Stroke symptoms such as sudden numbness or weakness on one side of your face, arm, or leg or sudden confusion, trouble speaking or vision changes -Take levothyroxine on an empty stomach with 1 cup of water (250ml) at least four hours after eating. Then wait minutes before consuming any other food or beverage, especially coffee. This medicine will work best if you take it about at the same time every day. Separate levothyroxine from vitamins and antacids ormedicines with calcium or iron by at least 4 hours before and after taking this medicine. Stop taking any biotin supplement 4 days prior to having labs drawn. It is important you keep taking each dose of this medicine on time even if you are feeling well. If you forget to take a dose on time, take in as soon as you remember unless it is almost time for the next dose and return to your normal schedule. Do not take two doses at one time - Would advise you discontinue meloxicam as this can be hard on the kidneys - Jardiance was taken off your medication list as it was indicated they are not taking this -Please call your primary care provider's office upon discharge to schedule a hospital follow up within 1 week. -For any concerning signs or symptoms please call 911 or proceed to the nearest emergency department Physical Exam Narrative General: Alert, no apparent distress HEENT: Atraumatic, normocephalic Eyes: Anicteric, normal conjunctiva, extraocular movements grossly intact Neck: Supple Respiratory: Normal respiratory effort without wheezes or rhonchi Cardiovascular: Regular rate and rhythm GI: Soft, nontender, nondistended Extremities: Bilateral lower extremity edema, mild degree of pitting Musculoskeletal: Moving all extremities Neuro: No overt focal neurological deficits Skin: No rashes appreciated Psych: Cooperative Weight / BMI Weight Weight: 117.9 kg Body Mass Index (BMI) 44.6 ABG / Lab / Microbiology Data 07/12/25 05:35 07/12/25 05:35 Laboratory: Laboratory Results - last 24 hr 07/11/25 16:22: POC Glucose 201 H 07/11/25 21:00: POC Glucose 177 H 07/12/25 05:35: WBC 5.2, RBC 3.68 L, Hgb 10.4 L, Hct 33.4 L, MCV 90.8, MCH 28.3,MCHC 31.1 L, RDW Std Deviation 50.3 H, RDW Coeff of Catina 15.1 H, Plt Count 135 L,MPV 11.3, Sodium 141, Potassium 4.1, Chloride 101, Carbon Dioxide 29.9, Anion Gap 10, BUN 36 H, Creatinine 1.56 H, Estim Creat Clear Calc 49.03 L, Est GFR (MDRD) Non-Af 38 L, BUN/Creatinine Ratio 22.9 H, Glucose 162 H, Calcium 9.1 07/12/25 08:40: POC Glucose 124 H 07/12/25 11:28: POC Glucose 151 H D/C Instructions DC O2, CPAP, BIPAP Needs Home O2 Discharge instructions: Yes Type of respiratory needs?: Oxygen (2) Oxygen frequency: Continuous Continuous oxygen liters per minute: 2 DC home with Oxygen: Yes Home O2 MD Review: I have reviewed the oxygen testing, and the patient qualifies for home oxygen equipment and portability. The patient is mobile in the home and the community. Meaningful Use Info Meaningful Use Meaningful Use Diagnoses (Choose all that apply): CHF CHF ENID/ARB ordered at discharge?: No Reason ENID/ARB not ordered?: Worsening renal disease Documented LVEF (%): 55 Discharge Plan Admission Admit Date/Time: 07/09/25 18:29 Primary Reason for Your Visit: Shortness of breath Attending Provider: Asya Hernandez Primary Care Provider: Sarina Adams Consulting Providers: Tavo Nielson Instructions Patient Instructions: Heart Failure Make Changes Diet, Heart Failure Dc Additional Instructions / Restrictions: DISCHARGE INSTRUCTIONS PLEASE READ *Please take this with you to your next doctors appointment* -Would recommend lab work (BMP) to check your kidney function in 2 to 3 days through your primary care physician's office. Please call their office upon discharge to obtain order for lab work. -Resume your Lasix 40 mg once in the morning and once in the afternoon, it is very important that you take these medications on time -Weigh yourself every day. A sudden weight gain can mean you are retaining fluid. Weigh yourself at the same time of day and in the same kind of clothes. Ideally, weigh yourself first thing in the morning after you empty your bladder,but before you eat breakfast. -Please call your physician if your weight goes up by more than 2 pounds in 1 day or 5 pounds in 1 week. This can be a sign that you are retaining more fluid than you should be. Clues to weight gain include checking your ankles for swelling, or noticing you are short of breath when you lie down -Please limit your sodium intake to less than 3 g/day. And your fluid intake toless than 1800 mL a day Here are tips: Limit canned, dried, packaged, and fast foods. Don't add salt to your food at the table. Season foods with herbs instead of salt when you cook. When you eat out, ask that the chef de cuisine not add any salt to your dish. Don't eat fried or greasy foods. Be careful of bottled beverages. They can contain a lot of salt -Call 911 right away if you have: -Severe shortness of breath, such that you can't catch your breath even while resting -Severe chest pain that does not resolve with rest or nitroglycerin -[place], foamy mucus with cough and shortness of breath -An ongoing rapid or irregular heartbeat -Passing out or fainting -Stroke symptoms such as sudden numbness or weakness on one side of your face, arm, or leg or sudden confusion, trouble speaking or vision changes -Take levothyroxine on an empty stomach with 1 cup of water (250ml) at least four hours after eating. Then wait minutes before consuming any other food or beverage, especially coffee. This medicine will work best if you take it about at the same time every day. Separate levothyroxine from vitamins and antacids ormedicines with calcium or iron by at least 4 hours before and after taking this medicine. Stop taking any biotin supplement 4 days prior to having labs drawn. It is important you keep taking each dose of this medicine on time even if you are feeling well. If you forget to take a dose on time, take in as soon as you remember unless it is almost time for the next dose and return to your normal schedule. Do not take two doses at one time - Would advise you discontinue meloxicam as this can be hard on the kidneys - Jardiance was taken off your medication list as it was indicated they are not taking this -Please call your primary care provider's office upon discharge to schedule a hospital follow up within 1 week. -For any concerning signs or symptoms please call 911 or proceed to the nearest emergency department Discharge Orders/Prescriptions Prescriptions: Continued estradiol 0.01 % (0.1 mg/gram) cream 3 g VAGINAL .COMPLEX Patient Comments: insert 3 grams vaginally two times a week PT HAS NOT BEEN USING LATELY. Rx Instructions: 3 grams vaginally 2 TIMES PER WEEK; fenofibrate 160 mg tablet 160 mg PO DAILY Patient Comments: take 1 tablet by mouth once daily vitamin E 400 unit Capsule 400 unit PO DAILY dicyclomine 10 mg capsule 10 mg PO ACHS Patient Comments: take 1 capsule by mouth four times a day before meals and at bedtime FOR ABDOMINAL PAIN. PT HAS NOT YET PICKED UP THE RX rosuvastatin 10 mg tablet 10 mg PO DAILY Patient Comments: take 1 tablet by mouth at bedtime insulin degludec [Tresiba FlexTouch U-100] 100 unit/mL (3 mL) insulin pen 86 unit SUBCUT QHS Patient Comments: INJECT 86 UNITS SUBCUTANEOUSLY DAILY AT BEDTIME levothyroxine 300 mcg tablet 300 mcg PO DAILY Patient Comments: TAKES IN EVENING potassium chloride 10 mEq tablet extended release 10 meq PO DAILY gabapentin 800 mg tablet 800 mg PO TID Patient Comments: PT STATES ONLY TAKES TWICE DAILY furosemide 40 mg tablet 40 mg PO BID Systane Ultra 0.4-0.3 % drops 1 drp ophthalmic (eye) 4X/DAY hydrocodone-acetaminophen 5-325 mg tablet 1 tab PO Q6H PRN (Reason: pain) insulin lispro [Humalog KwikPen Insulin] 100 unit/mL Insulin Pen 22 unit subcut TIDCM insulin lispro [Humalog KwikPen Insulin] 100 unit/mL insulin pen See Protocol subcut DAILY Protocol: 1. Sliding Scale Insulin Low Dosing Condition: 150-224 mg/dl = 1 unit Condition: 225-299 mg/dl = 2 units Condition: 300-374 mg/dl = 3 units Condition: 375-449 mg/dl = 4 units Condition: Greater than 449 call physician Protocol Text: Suggested for: - Patients on Total Daily Insulin Dose of 15-27 units - Thin, elderly, renal patients LOW DOSING ALGORITHM cholecalciferol (vitamin D3) 125 mcg (5,000 unit) capsule 125 mcg PO DAILY omeprazole 40 mg capsule,delayed release(DR/EC) 40 mg PO DAILY Trulicity 4.5 mg/0.5 mL pen injector 4.5 mg subcut QWEEK Discontinued meloxicam 15 mg tablet 15 mg PO DAILY PRN (Reason: Pain) Patient Comments: take 1 tablet by mouth once daily if needed for pain with food Jardiance 25 mg tablet 25 mg PO DAILY Referrals / Follow Up: Sarina Adams MD [Primary Care Provider, Internal Medicine] - Within 1 Week Disposition Disposition (needs filled in before D/C Order can be placed): Home, Self Care Charges/Coding Visit Charges Inpatient E&M: 83727 Disch Hosp >30min 07/12/25 1508 <Electronically signed by Asya Hernandez MD> Cosigner Signature (if applicable): CC: Dr. Sarina Adams MD; Dr. Asya Hernandez MD~ Signed [facility] Work Phone: 1(173) 689-896910-09-2025 Consult note Author Emmanuel Saha [facility] Note Date/Time July 12, 2025 6: 28pm [facility] Medical Records Department [address] [place] [address] Counseling Note - Pharmacy 07/12/25 1506 MR#: [id number] Acct: [id number] Name: SAMANTHA ROMERO Kerri Rep #:[id number] : 1965 59 From: Emmanuel segovia PCP: Dr. Sarina Adams MD Status:DANDRE [place] Location: [place] [id number] [place] Med Reconciliation Pharmacy Service has performed discharge medication reconciliation for this patient. The patient's discharge medication list was reviewed for discrepancies and discrepancies were resolved. Medications at Discharge Home Medications estradiol 0.01% (0.1 mg/gram) vaginal cream 3 g vaginal .COMPLEX health maintenance 03/25/21 fenofibrate 160 mg tablet 160 mg PO DAILY cholesterol 03/25/21 vitamin E 268 mg (400 unit) capsule 400 unit PO DAILY supplement 03/25/21 dicyclomine 10 mg capsule 10 mg PO ACHS abdominal pain 07/06/21 insulin degludec 100 unit/mL (3 mL) subcutaneous pen (Tresiba FlexTouch U-100 insulin) 86 unit subcut QHS diabetes 07/06/21 rosuvastatin 10 mg tablet 10 mg PO DAILY cholesterol 07/06/21 cholecalciferol (vitamin D3) 125 mcg (5,000 unit) capsule 125 mcg PO DAILY SUPPLEMENT 05/03/24 omeprazole 40 mg capsule,delayed release 40 mg PO DAILY STOMACH 05/03/24 dulaglutide 4.5 mg/0.5 mL subcutaneous pen injector (Trulicity) 4.5 mg subcut QWEEK BLOOD SUGAR 10/27/24 furosemide 40 mg tablet 40 mg PO BID EDEMA 07/09/25 gabapentin 800 mg tablet 800 mg PO TID NEUROPATHY 07/09/25 hydrocodone-acetaminophen 5-325mg 5mg-325mg 1 tab PO Q6H PRN pain 07/09/25 insulin lispro 100 unit/mL subcutaneous pen (Humalog KwikPen (U-100) Insulin) 22unit subcut TIDCM DIABETES 07/09/25 insulin lispro 100 unit/mL subcutaneous pen (Humalog KwikPen (U-100) Insulin) See Protocol subcut DAILY DIABETES 07/09/25 levothyroxine 300 mcg tablet 300 mcg PO DAILY THYROID 07/09/25 peg 400-propylene glycol 0.4 %-0.3 % eye drops (Systane Ultra) 1 drp ophthalmic (eye) 4X/DAY DRY EYE 07/09/25 potassium chloride 10 mEq tablet,extended release 10 meq PO DAILY POTASSIUM 07/09/25 07/12/25 1506 <Electronically signed by Emmanuel Puri> Date _ Emmanuel Greco Signature (if applicable): Date CC: ~ Signed [facility] Work Phone: 1(287) 305-487610-09-2025 Discharge summary Author Asya Hernandez [facility] Note Date/Time July 12, 2025 3: 00pm [facility] Medical Records Department [address] [place] [address] Instructions for Home/Discharge Instructions 07/12/25 1457 MR#: [id number] Acct: [id number] Name: SAMANTHA ROMERO Rep #:[id number] : 1965 59 From: Asya Hernandez MD PCP: Dr. Sarina Adams MD Status:AD M IN Discharge Instructions DC O2, CPAP, BIPAP needs Home O2 Discharge instructions: Yes Type of respiratory needs?: Oxygen (2) Oxygen frequency: Continuous Continuous oxygen liters per minute: 2 Dressing / Incision Discharge Activity: - (Increase activity as tolerated) Follow Up Care Test Results: Test results from this visit will be discussed in further detail at your follow- up appointment, if applicable. Discharge Plan Admission Admit Date/Time: 07/09/25 18:29 Primary Reason for Your Visit: Shortness of breath Attending Provider: Asya Hernandez Primary Care Provider: Sarina Adams Consulting Providers: Tavo Nielson Instructions Patient Instructions: Heart Failure Make Changes Diet, Heart Failure Dc Additional Instructions / Restrictions: DISCHARGE INSTRUCTIONS PLEASE READ *Please take this with you to your next doctors appointment* -Would recommend lab work (BMP) to check your kidney function in 2 to 3 days through your primary care physician's office. Please call their office upon discharge to obtain order for lab work. -Resume your Lasix 40 mg once in the morning and once in the afternoon, it is very important that you take these medications on time -Weigh yourself every day. A sudden weight gain can mean you are retaining fluid. Weigh yourself at the same time of day and in the same kind of clothes. Ideally, weigh yourself first thing in the morning after you empty your bladder,but before you eat breakfast. -Please call your physician if your weight goes up by more than 2 pounds in 1 day or 5 pounds in 1 week. This can be a sign that you are retaining more fluid than you should be. Clues to weight gain include checking your ankles for swelling, or noticing you are short of breath when you lie down -Please limit your sodium intake to less than 3 g/day. And your fluid intake toless than 1800 mL a day Here are tips: Limit canned, dried, packaged, and fast foods. Don't add salt to your food at the table. Season foods with herbs instead of salt when you cook. When you eat out, ask that the chef de cuisine not add any salt to your dish. Don't eat fried or greasy foods. Be careful of bottled beverages. They can contain a lot of salt -Call 911 right away if you have: -Severe shortness of breath, such that you can't catch your breath even while resting -Severe chest pain that does not resolve with rest or nitroglycerin -[place], foamy mucus with cough and shortness of breath -An ongoing rapid or irregular heartbeat -Passing out or fainting -Stroke symptoms such as sudden numbness or weakness on one side of your face, arm, or leg or sudden confusion, trouble speaking or vision changes -Take levothyroxine on an empty stomach with 1 cup of water (250ml) at least four hours after eating. Then wait minutes before consuming any other food or beverage, especially coffee. This medicine will work best if you take it about at the same time every day. Separate levothyroxine from vitamins and antacids ormedicines with calcium or iron by at least 4 hours before and after taking this medicine. Stop taking any biotin supplement 4 days prior to having labs drawn. It is important you keep taking each dose of this medicine on time even if you are feeling well. If you forget to take a dose on time, take in as soon as you remember unless it is almost time for the next dose and return to your normal schedule. Do not take two doses at one time - Would advise you discontinue meloxicam as this can be hard on the kidneys - Jardiance was taken off your medication list as it was indicated they are not taking this -Please call your primary care provider's office upon discharge to schedule a hospital follow up within 1 week. -For any concerning signs or symptoms please call 911 or proceed to the nearest emergency department Discharge Orders/Prescriptions Prescriptions: Continued estradiol 0.01 % (0.1 mg/gram) cream 3 g VAGINAL .COMPLEX Patient Comments: insert 3 grams vaginally two times a week PT HAS NOT BEEN USING LATELY. Rx Instructions: 3 grams vaginally 2 TIMES PER WEEK; fenofibrate 160 mg tablet 160 mg PO DAILY Patient Comments: take 1 tablet by mouth once daily vitamin E 400 unit Capsule 400 unit PO DAILY dicyclomine 10 mg capsule 10 mg PO ACHS Patient Comments: take 1 capsule by mouth four times a day before meals and at bedtime FOR ABDOMINAL PAIN. PT HAS NOT YET PICKED UP THE RX rosuvastatin 10 mg tablet 10 mg PO DAILY Patient Comments: take 1 tablet by mouth at bedtime insulin degludec [Tresiba FlexTouch U-100] 100 unit/mL (3 mL) insulin pen 86 unit SUBCUT QHS Patient Comments: INJECT 86 UNITS SUBCUTANEOUSLY DAILY AT BEDTIME levothyroxine 300 mcg tablet 300 mcg PO DAILY Patient Comments: TAKES IN EVENING potassium chloride 10 mEq tablet extended release 10 meq PO DAILY gabapentin 800 mg tablet 800 mg PO TID Patient Comments: PT STATES ONLY TAKES TWICE DAILY furosemide 40 mg tablet 40 mg PO BID Systane Ultra 0.4-0.3 % drops 1 drp ophthalmic (eye) 4X/DAY hydrocodone-acetaminophen 5-325 mg tablet 1 tab PO Q6H PRN (Reason: pain) insulin lispro [Humalog KwikPen Insulin] 100 unit/mL Insulin Pen 22 unit subcut TIDCM insulin lispro [Humalog KwikPen Insulin] 100 unit/mL insulin pen See Protocol subcut DAILY Protocol: 1. Sliding Scale Insulin Low Dosing Condition: 150-224 mg/dl = 1 unit Condition: 225-299 mg/dl = 2 units Condition: 300-374 mg/dl = 3 units Condition: 375-449 mg/dl = 4 units Condition: Greater than 449 call physician Protocol Text: Suggested for: - Patients on Total Daily Insulin Dose of 15-27 units - Thin, elderly, renal patients LOW DOSING ALGORITHM cholecalciferol (vitamin D3) 125 mcg (5,000 unit) capsule 125 mcg PO DAILY omeprazole 40 mg capsule,delayed release(DR/EC) 40 mg PO DAILY Trulicity 4.5 mg/0.5 mL pen injector 4.5 mg subcut QWEEK Discontinued meloxicam 15 mg tablet 15 mg PO DAILY PRN (Reason: Pain) Patient Comments: take 1 tablet by mouth once daily if needed for pain with food Jardiance 25 mg tablet 25 mg PO DAILY Referrals / Follow Up: Sarina Adams MD [Primary Care Provider, Internal Medicine] - Within 1 Week Disposition Disposition (needs filled in before D/C Order can be placed): Home, Self Care 07/12/25 1500<Electronically signed by Asya Hernandez MD>Asya Hernandez MD CC: Dr. Tavo Nielson DO; Dr. Sarina Adams MD ~ Signed [facility] Work Phone: 1(301) 198-165310-09-2025 Discharge summary [facility] Medical Records Department [address] [place] [id number] Discharge Summary 07/12/25 1500 MR#: [id number] Acct: [id number] Name: SAMANTHA ROMERO Rep #:[id number] : 1965 59 From: Asya Hernandez MD PCP: Dr. Sarina Adams MD Status:AD M IN Location: [place] [id number] Providers Date of Admission: 07/09/25 Date of Discharge: 07/12/25 Primary Care Physician: Dr. Sarina Adams MD Reason For Visit: AECHF Diagnosis Discharge Diagnosis (1) 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re with preserved ejection fraction: Status: Acute Code(s): I50.33 - Acute on chronic diastolic (congestive) heart failure (2) Fluid overload: Status: Acute Code(s): E87.70 - Fluid overload, unspecified (3) Acute on chronic hypoxic respiratory failure: Status: Chronic Code(s): J96.21 - Acute and chronic respiratory failure with hypoxia Plan # Acute on chronic hypoxic respiratory failure suspect secondary to heart failure with preserved ejection fraction #Type 2 diabetes mellitus #Hypothyroidism # Normocytic anemia #GERD #Morbid obesity Medications at Discharge Home Medications estradiol 0.01% (0.1 mg/gram) vaginal cream 3 g vaginal .COMPLEX health maintenance 03/25/21 fenofibrate 160 mg tablet 160 mg PO DAILY cholesterol 03/25/21 vitamin E 268 mg (400 unit) capsule 400 unit PO DAILY supplement 03/25/21 dicyclomine 10 mg capsule 10 mg PO ACHS abdominal pain 07/06/21 insulin degludec 100 unit/mL (3 mL) subcutaneous pen (Tresiba FlexTouch U-100 insulin) 86 unit subcut QHS diabetes 07/06/21 rosuvastatin 10 mg tablet 10 mg PO DAILY cholesterol 07/06/21 cholecalciferol (vitamin D3) 125 mcg (5,000 unit) capsule 125 mcg PO DAILY SUPPLEMENT 05/03/24 omeprazole 40 mg capsule,delayed release 40 mg PO DAILY STOMACH 05/03/24 dulaglutide 4.5 mg/0.5 mL subcutaneous pen injector (Trulicity) 4.5 mg subcut QWEEK BLOOD SUGAR 10/27/24 furosemide 40 mg tablet 40 mg PO BID EDEMA 07/09/25 gabapentin 800 mg tablet 800 mg PO TID NEUROPATHY 07/09/25 hydrocodone-acetaminophen 5-325mg 5mg-325mg 1 tab PO Q6H PRN pain 07/09/25 insulin lispro 100 unit/mL subcutaneous pen (Humalog KwikPen (U-100) Insulin) 22unit subcut TIDCM DIABETES 07/09/25 insulin lispro 100 unit/mL subcutaneous pen (Humalog KwikPen (U-100) Insulin) See Protocol subcut DAILY DIABETES 07/09/25 levothyroxine 300 mcg tablet 300 mcg PO DAILY THYROID 07/09/25 peg 400-propylene glycol 0.4 %-0.3 % eye drops (Systane Ultra) 1 drp ophthalmic (eye) 4X/DAY DRY EYE 07/09/25 potassium chloride 10 mEq tablet,extended release 10 meq PO DAILY POTASSIUM 07/09/25 Hospital Course Procedures Transthoracic echo Summary of Care Provided Minutes Spent on Discharge: 34 Hospital Course: 59-year-old female with a history of hypothyroidism, type 2 diabetes, chronic hypoxic respiratory failure on 2 L nasal cannula, GERD who presented [facility] ED 07/10/2025 from her pulmonary office due to increased shortness of breath on exertion and weight gain. She has reportedly gained 13 pounds since last week when may have missed a few doses of her Lasix. She had aCT scan earlier today reportedly which showed fluid in her lungs and pulmonology sent her to the ED from the office for further evaluation. In the ED patient had pitting edema, noted weight gain and dyspnea on exertion and was hypoxic to 84% on nasal cannula. Chest x-ray showed cardiomegaly and vascular congestion with interstitial edema, BNP only noted to be 237 however unclear significance given patient'sentire picture highly suggestive of fluid overload. Patient given 40 of IV Lasix and hospitalist contacted for admission. Patient clinically improved with IV diuresis, patient was able to ambulate with improvedsymptoms, she was switched to p.o. diuretics and did tolerate these with no decompensation overnight, suspect her heart failure exacerbation was secondary to noncompliance given initial reported missing doses of Lasix, lack of fluid restriction, as well as hypothyroidism as TSH still 14 and on discussion patienttaking Synthroid at night/suboptimally. Patient stable on home dose of Lasixwith fluid restriction and Synthroid in the a.m., feel it is reasonable to discharge home on home regimen with education on fluid restriction, importance of taking her medications and taking Synthroid in the a.m. Discussed Synthroid instructions (as below) with patient she verbalized understanding,stressed fluid restriction and compliance of Lasix and patient verbalized understanding. At this point breathing is improving and suspect patient remaining in the hospital will lead to increased weakness and decreased functional status. Discussed with patient discharge versus continued hospitalization given the above concerns and the fact that she is tolerating oral Lasix and she agrees with discharge home. Discharge instructions as follows: -Would recommend lab work (BMP) to check your kidney function in 2 to 3 days through your primary care physician's office. Please call their office upon discharge to obtain order for lab work. -Resume your Lasix 40 mg once in the morning and once in the afternoon, it is very important that you take these medications on time -Weigh yourself every day. A sudden weight gain can mean you are retaining fluid. Weigh yourself atthe same time of day and in the same kind of clothes. Ideally, weigh yourself first thing in the morning after you empty your bladder,but before you eat breakfast. -Please call your physician if your weight goes up by more than 2 pounds in 1 day or 5 pounds in 1 week. This can be a sign that you are retaining more fluid than you should be. Clues to weight gain include checking your ankles for swelling, or noticing you are short of breath when you lie down -Please limit your sodium intake to less than 3 g/day. And your fluid intake toless than 1800 mL a day Here are tips: Limit canned, dried, packaged, and fast foods. Don't add salt to your food at the table. Season foods with herbs instead of salt when you cook. When you eat out, ask that the chef de cuisine not add any salt to your dish. Don't eat fried or greasy foods. Be careful of bottled beverages. They can contain a lot of salt -Call 911 right away if you have: -Severe shortness of breath, such that you can't catch your breath even while resting -Severe chest pain that does not resolve with rest or nitroglycerin -[place], foamy mucus with cough and shortness of breath -An ongoing rapid or irregular heartbeat -Passing out or fainting -Stroke symptoms such as sudden numbness or weakness on one side of your face, arm, or leg or sudden confusion, trouble speaking or vision changes -Take levothyroxine on an empty stomach with 1 cup of water (250ml) at least four hours after eating. Then wait minutes before consuming any other food or beverage, especially coffee. This medicine will work best if you take it about at the same time every day. Separate levothyroxine from vitamins and antacids ormedicines with calcium or iron by at least 4 hours before and after taking this medicine. Stop taking any biotin supplement 4 days prior to having labs drawn. It is important you keep taking each dose of this medicine on time even if you are feeling well. If you forget to take a dose on time, take in as soon as you remember unless it is almost time for the next dose and return to your normal schedule. Do not take two doses at one time - Would advise you discontinue meloxicam as this can be hard on the kidneys - Jardiance was taken off your medication list as it was indicated they are not taking this -Please call your primary care provider's office upon discharge to schedule a hospital follow up within 1 week. -For any concerning signs or symptoms please call 911 or proceed to the nearest emergency department Physical Exam Narrative General: Alert, no apparent distress HEENT: Atraumatic, normocephalic Eyes: Anicteric, normal conjunctiva, extraocular movements grossly intact Neck: Supple Respiratory: Normal respiratory effort without wheezes or rhonchi Cardiovascular: Regular rate and rhythm GI: Soft, nontender, nondistended Extremities: Bilateral lower extremity edema, mild degree of pitting Musculoskeletal: Moving all extremities Neuro: No overt focal neurological deficits Skin: No rashes appreciated Psych: Cooperative Weight / BMI Weight Weight: 117.9 kg Body Mass Index (BMI) 44.6 ABG / Lab / Microbiology Data 07/12/25 05:35 07/12/25 05:35 Laboratory: Laboratory Results - last 24 hr 07/11/25 16:22: POC Glucose 201 H 07/11/25 21:00: POC Glucose 177 H 07/12/25 05:35: WBC 5.2, RBC 3.68 L, Hgb 10.4 L, Hct 33.4 L, MCV 90.8, MCH 28.3,MCHC 31.1 L, RDW Std Deviation 50.3 H, RDW Coeff of Catina 15.1 H, Plt Count 135 L,MPV 11.3, Sodium 141, Potassium 4.1, Chloride 101, Carbon Dioxide 29.9, Anion Gap 10, BUN 36 H, Creatinine 1.56 H, Estim Creat Clear Calc 49.03 L, Est GFR (MDRD) Non-Af 38 L, BUN/Creatinine Ratio 22.9 H, Glucose 162 H, Calcium 9.1 07/12/25 08:40: POC Glucose 124 H 07/12/25 11:28: POC Glucose 151 H D/C Instructions DC O2, CPAP, BIPAP Needs Home O2 Discharge instructions: Yes Type of respiratory needs?: Oxygen (2) Oxygen frequency: Continuous Continuous oxygen liters per minute: 2 DC home with Oxygen: Yes Home O2 MD Review: I have reviewed the oxygen testing, and the patient qualifies for home oxygen equipment and portability. The patient is mobile in the home and the community. Meaningful Use Info Meaningful Use Meaningful Use Diagnoses (Choose all that apply): CHF CHF ENID/ARB ordered at discharge?: No Reason ENID/ARB not ordered?: Worsening renal disease Documented LVEF (%): 55 Discharge Plan Admission Admit Date/Time: 07/09/25 18:29 Primary Reason for Your Visit: Shortness of breath Attending Provider: Asya Hernandez Primary Care Provider: Sarina Adams Consulting Providers: Tavo Nielson Instructions Patient Instructions: Heart Failure Make Changes Diet, Heart Failure Dc Additional Instructions / Restrictions: DISCHARGE INSTRUCTIONS PLEASE READ *Please take this with you to your next doctors appointment* -Would recommend lab work (BMP) to check your kidney function in 2 to 3 days through your primary care physician's office. Please call their office upon discharge to obtain order for lab work. -Resume your Lasix 40 mg once in the morning and once in the afternoon, it is very important that you take these medications on time -Weigh yourself every day. A sudden weight gain can mean you are retaining fluid. Weigh yourself atthe same time of day and in the same kind of clothes. Ideally, weigh yourself first thing in the morning after you empty your bladder,but before you eat breakfast. -Please call your physician if your weight goes up by more than 2 pounds in 1 day or 5 pounds in 1 week. This can be a sign that you are retaining more fluid than you should be. Clues to weight gain include checking your ankles for swelling, or noticing you are short of breath when you lie down -Please limit your sodium intake to less than 3 g/day. And your fluid intake toless than 1800 mL a day Here are tips: Limit canned, dried, packaged, and fast foods. Don't add salt to your food at the table. Season foods with herbs instead of salt when you cook. When you eat out, ask that the chef de cuisine not add any salt to your dish. Don't eat fried or greasy foods. Be careful of bottled beverages. They can contain a lot of salt -Call 911 right away if you have: -Severe shortness of breath, such that you can't catch your breath even while resting -Severe chest pain that does not resolve with rest or nitroglycerin -[place], foamy mucus with cough and shortness of breath -An ongoing rapid or irregular heartbeat -Passing out or fainting -Stroke symptoms such as sudden numbness or weakness on one side of your face, arm, or leg or sudden confusion, trouble speaking or vision changes -Take levothyroxine on an empty stomach with 1 cup of water (250ml) at least four hours after eating. Then wait minutes before consuming any other food or beverage, especially coffee. This medicine will work best if you take it about at the same time every day. Separate levothyroxine from vitamins and antacids ormedicines with calcium or iron by at least 4 hours before and after taking this medicine. Stop taking any biotin supplement 4 days prior to having labs drawn. It is important you keep taking each dose of this medicine on time even if you are feeling well. If you forget to take a dose on time, take in as soon as you remember unless it is almost time for the next dose and return to your normal schedule. Do not take two doses at one time - Would advise you discontinue meloxicam as this can be hard on the kidneys - Jardiance was taken off your medication list as it was indicated they are not taking this -Please call your primary care provider's office upon discharge to schedule a hospital follow up within 1 week. -For any concerning signs or symptoms please call 911 or proceed to the nearest emergency department Discharge Orders/Prescriptions Prescriptions: Continued estradiol 0.01 % (0.1 mg/gram) cream 3 g VAGINAL .COMPLEX Patient Comments: insert 3 grams vaginally two times a week PT HAS NOT BEEN USING LATELY. Rx Instructions: 3 grams vaginally 2 TIMES PER WEEK; fenofibrate 160 mg tablet 160 mg PO DAILY Patient Comments: take 1 tablet by mouth once daily vitamin E 400 unit Capsule 400 unit PO DAILY dicyclomine 10 mg capsule 10 mg PO ACHS Patient Comments: take 1 capsule by mouth four times a day before meals and at bedtime FOR ABDOMINAL PAIN. PT HAS NOTYET PICKED UP THE RX rosuvastatin 10 mg tablet 10 mg PO DAILY Patient Comments: take 1 tablet by mouth at bedtime insulin degludec [Tresiba FlexTouch U-100] 100 unit/mL (3 mL) insulin pen 86 unit SUBCUT QHS Patient Comments: INJECT 86 UNITS SUBCUTANEOUSLY DAILY AT BEDTIME levothyroxine 300 mcg tablet 300 mcg PO DAILY Patient Comments: TAKES IN EVENING potassium chloride 10 mEq tablet extended release 10 meq PO DAILY gabapentin 800 mg tablet 800 mg PO TID Patient Comments: PT STATES ONLY TAKES TWICE DAILY furosemide 40 mg tablet 40 mg PO BID Systane Ultra 0.4-0.3 % drops 1 drp ophthalmic (eye) 4X/DAY hydrocodone-acetaminophen 5-325 mg tablet 1 tab PO Q6H PRN (Reason: pain) insulin lispro [Humalog KwikPen Insulin] 100 unit/mL Insulin Pen 22 unit subcut TIDCM insulin lispro [Humalog KwikPen Insulin] 100 unit/mL insulin pen See Protocol subcut DAILY Protocol: 1. Sliding Scale Insulin Low Dosing Condition: 150-224 mg/dl = 1 unit Condition: 225-299 mg/dl = 2 units Condition: 300-374 mg/dl = 3 units Condition: 375-449 mg/dl = 4 units Condition: Greater than 449 call physician Protocol Text: Suggested for: - Patients on Total Daily Insulin Dose of 15-27 units - Thin, elderly, renal patients LOW DOSING ALGORITHM cholecalciferol (vitamin D3) 125 mcg (5,000 unit) capsule 125 mcg PO DAILY omeprazole 40 mg capsule,delayed release(DR/EC) 40 mg PO DAILY Trulicity 4.5 mg/0.5 mL pen injector 4.5 mg subcut QWEEK Discontinued meloxicam 15 mg tablet 15 mg PO DAILY PRN (Reason: Pain) Patient Comments: take 1 tablet by mouth once daily if needed for pain with food Jardiance 25 mg tablet 25 mg PO DAILY Referrals / Follow Up: Sarina Adams MD [Primary Care Provider, Internal Medicine] - Within 1 Week Disposition Disposition (needs filled in before D/C Order can be placed): Home, Self Care Charges/Coding Visit Charges Inpatient E&M: 26095 Disch Hosp >30min 07/12/25 1508 Cosigner Signature (if applicable): CC: Dr. Sarina Adams MD; Dr. Asya Hernandez MD~ Signed [facility]10-09-2025 Discharge summary [facility] Medical Records Department [address] [place] [id number] Instructions for Home/Discharge Instructions 07/12/25 1457 MR#: [id number] Acct: [id number] Name: SAMANTHA ROMERO Rep #:[id number] : 1965 59 From: Asya Hernandez MD PCP: Dr. Sarina Adams MD Status:AD M IN Discharge Instructions DC O2, CPAP, BIPAP needs Home O2 Discharge instructions: Yes Type of respiratory needs?: Oxygen (2) Oxygen frequency: Continuous Continuous oxygen liters per minute: 2 Dressing / Incision Discharge Activity: - (Increase activity as tolerated) Follow Up Care Test Results: Test results from this visit will be discussed in further detail at your follow- up appointment, if applicable. Discharge Plan Admission Admit Date/Time: 07/09/25 18:29 Primary Reason for Your Visit: Shortness of breath Attending Provider: Asya Hernandez Primary Care Provider: Sarina Adams Consulting Providers: Tavo Nielson Instructions Patient Instructions: Heart Failure Make Changes Diet, Heart Failure Dc Additional Instructions / Restrictions: DISCHARGE INSTRUCTIONS PLEASE READ *Please take this with you to your next doctors appointment* -Would recommend lab work (BMP) to check your kidney function in 2 to 3 days through your primary care physician's office. Please call their office upon discharge to obtain order for lab work. -Resume your Lasix 40 mg once in the morning and once in the afternoon, it is very important that you take these medications on time -Weigh yourself every day. A sudden weight gain can mean you are retaining fluid. Weigh yourself atthe same time of day and in the same kind of clothes. Ideally, weigh yourself first thing in the morning after you empty your bladder,but before you eat breakfast. -Please call your physician if your weight goes up by more than 2 pounds in 1 day or 5 pounds in 1 week. This can be a sign that you are retaining more fluid than you should be. Clues to weight gain include checking your ankles for swelling, or noticing you are short of breath when you lie down -Please limit your sodium intake to less than 3 g/day. And your fluid intake toless than 1800 mL a day Here are tips: Limit canned, dried, packaged, and fast foods. Don't add salt to your food at the table. Season foods with herbs instead of salt when you cook. When you eat out, ask that the chef de cuisine not add any salt to your dish. Don't eat fried or greasy foods. Be careful of bottled beverages. They can contain a lot of salt -Call 911 right away if you have: -Severe shortness of breath, such that you can't catch your breath even while resting -Severe chest pain that does not resolve with rest or nitroglycerin -[place], foamy mucus with cough and shortness of breath -An ongoing rapid or irregular heartbeat -Passing out or fainting -Stroke symptoms such as sudden numbness or weakness on one side of your face, arm, or leg or sudden confusion, trouble speaking or vision changes -Take levothyroxine on an empty stomach with 1 cup of water (250ml) at least four hours after eating. Then wait minutes before consuming any other food or beverage, especially coffee. This medicine will work best if you take it about at the same time every day. Separate levothyroxine from vitamins and antacids ormedicines with calcium or iron by at least 4 hours before and after taking this medicine. Stop taking any biotin supplement 4 days prior to having labs drawn. It is important you keep taking each dose of this medicine on time even if you are feeling well. If you forget to take a dose on time, take in as soon as you remember unless it is almost time for the next dose and return to your normal schedule. Do not take two doses at one time - Would advise you discontinue meloxicam as this can be hard on the kidneys - Jardiance was taken off your medication list as it was indicated they are not taking this -Please call your primary care provider's office upon discharge to schedule a hospital follow up within 1 week. -For any concerning signs or symptoms please call 911 or proceed to the nearest emergency department Discharge Orders/Prescriptions Prescriptions: Continued estradiol 0.01 % (0.1 mg/gram) cream 3 g VAGINAL .COMPLEX Patient Comments: insert 3 grams vaginally two times a week PT HAS NOT BEEN USING LATELY. Rx Instructions: 3 grams vaginally 2 TIMES PER WEEK; fenofibrate 160 mg tablet 160 mg PO DAILY Patient Comments: take 1 tablet by mouth once daily vitamin E 400 unit Capsule 400 unit PO DAILY dicyclomine 10 mg capsule 10 mg PO ACHS Patient Comments: take 1 capsule by mouth four times a day before meals and at bedtime FOR ABDOMINAL PAIN. PT HAS NOTYET PICKED UP THE RX rosuvastatin 10 mg tablet 10 mg PO DAILY Patient Comments: take 1 tablet by mouth at bedtime insulin degludec [Tresiba FlexTouch U-100] 100 unit/mL (3 mL) insulin pen 86 unit SUBCUT QHS Patient Comments: INJECT 86 UNITS SUBCUTANEOUSLY DAILY AT BEDTIME levothyroxine 300 mcg tablet 300 mcg PO DAILY Patient Comments: TAKES IN EVENING potassium chloride 10 mEq tablet extended release 10 meq PO DAILY gabapentin 800 mg tablet 800 mg PO TID Patient Comments: PT STATES ONLY TAKES TWICE DAILY furosemide 40 mg tablet 40 mg PO BID Systane Ultra 0.4-0.3 % drops 1 drp ophthalmic (eye) 4X/DAY hydrocodone-acetaminophen 5-325 mg tablet 1 tab PO Q6H PRN (Reason: pain) insulin lispro [Humalog KwikPen Insulin] 100 unit/mL Insulin Pen 22 unit subcut TIDCM insulin lispro [Humalog KwikPen Insulin] 100 unit/mL insulin pen See Protocol subcut DAILY Protocol: 1. Sliding Scale Insulin Low Dosing Condition: 150-224 mg/dl = 1 unit Condition: 225-299 mg/dl = 2 units Condition: 300-374 mg/dl = 3 units Condition: 375-449 mg/dl = 4 units Condition: Greater than 449 call physician Protocol Text: Suggested for: - Patients on Total Daily Insulin Dose of 15-27 units - Thin, elderly, renal patients LOW DOSING ALGORITHM cholecalciferol (vitamin D3) 125 mcg (5,000 unit) capsule 125 mcg PO DAILY omeprazole 40 mg capsule,delayed release(DR/EC) 40 mg PO DAILY Trulicity 4.5 mg/0.5 mL pen injector 4.5 mg subcut QWEEK Discontinued meloxicam 15 mg tablet 15 mg PO DAILY PRN (Reason: Pain) Patient Comments: take 1 tablet by mouth once daily if needed for pain with food Jardiance 25 mg tablet 25 mg PO DAILY Referrals / Follow Up: Sarina Adams MD [Primary Care Provider, Internal Medicine] - Within 1 Week Disposition Disposition (needs filled in before D/C Order can be placed): Home, Self Care 07/12/25 Silvana Hernandez MD CC: Dr. Tavo Nielson DO; Dr. Sarina Adams MD ~ [facility]10-09-2025 [facility] Medical Records Department [address] [place] [address] Discharge Summary 07/12/25 1500 MR#: [id number] Acct: [id number] Name: SAMANTHA ROMERO Kerri Rep #: [id number] : 1965 59 From: Asya Hernandez MD PCP: Dr. Sarina Adams MD Status:ADM IN Location: [place] [id number] Providers Date of Admission: 07/09/25 Date of Discharge: 07/12/25 Primary Care Physician: Dr. Sarina Adams MD Reason For Visit: AECHF Diagnosis Discharge Diagnosis (1) 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re with preserved ejection fraction: Status: Acute Code(s): I50.33 - Acute on chronic diastolic (congestive) heart failure (2) Fluid overload: Status: Acute Code(s): E87.70 - Fluid overload, unspecified (3) Acute on chronic hypoxic respiratory failure: Status: Chronic Code(s): J96.21 - Acute and chronic respiratory failure with hypoxia Plan # Acute on chronic hypoxic respiratory failure suspect secondary to heart failure with preserved ejection fraction #Type 2 diabetes mellitus #Hypothyroidism # Normocytic anemia #GERD #Morbid obesity Medications at Discharge Home Medications estradiol 0.01% (0.1 mg/gram) vaginal cream 3 g vaginal .COMPLEX health maintenance 03/25/21 fenofibrate 160 mg tablet 160 mg PO DAILY cholesterol 03/25/21 vitamin E 268 mg (400 unit) capsule 400 unit PO DAILY supplement 03/25/21 dicyclomine 10 mg capsule 10 mg PO ACHS abdominal pain 07/06/21 insulin degludec 100 unit/mL (3 mL) subcutaneous pen (Tresiba FlexTouch U-100 insulin) 86 unit subcut QHS diabetes 07/06/21 rosuvastatin 10 mg tablet 10 mg PO DAILY cholesterol 07/06/21 cholecalciferol (vitamin D3) 125 mcg (5,000 unit) capsule 125 mcg PO DAILY SUPPLEMENT 05/03/24 omeprazole 40 mg capsule,delayed release 40 mg PO DAILY STOMACH 05/03/24 dulaglutide 4.5 mg/0.5 mL subcutaneous pen injector (Trulicity) 4.5 mg subcut QWEEK BLOOD SUGAR 10/27/24 furosemide 40 mg tablet 40 mg PO BID EDEMA 07/09/25 gabapentin 800 mg tablet 800 mg PO TID NEUROPATHY 07/09/25 hydrocodone-acetaminophen 5-325mg 5mg-325mg 1 tab PO Q6H PRN pain 07/09/25 insulin lispro 100 unit/mL subcutaneous pen (Humalog KwikPen (U-100) Insulin) 22 unit subcut TIDCM DIABETES 07/09/25 insulin lispro 100 unit/mL subcutaneous pen (Humalog KwikPen (U-100) Insulin) See Protocol subcut DAILY DIABETES 07/09/25 levothyroxine 300 mcg tablet 300 mcg PO DAILY THYROID 07/09/25 peg 400-propylene glycol 0.4 %-0.3 % eye drops (Systane Ultra) 1 drp ophthalmic (eye) 4X/DAY DRY EYE 07/09/25 potassium chloride 10 mEq tablet,extended release 10 meq PO DAILY POTASSIUM 07/09/25 Hospital Course Procedures Transthoracic echo Summary of Care Provided Minutes Spent on Discharge: 34 Hospital Course: 59-year-old female with a history of hypothyroidism, type 2 diabetes, chronic hypoxic respiratory failure on 2 L nasal cannula, GERD who presented [facility] ED 07/10/2025 from her pulmonary office due to increased shortness of breath on exertion and weight gain. She has reportedly gained 13 pounds since last week when may have missed a few doses of her Lasix. She had a CT scan earlier today reportedly which showed fluid in her lungs and pulmonology sent her to the ED from the office for further evaluation. In the ED patient had pitting edema, noted weight gain and dyspnea on exertion and was hypoxic to 84% on nasal cannula. Chest x-ray showed cardiomegaly and vascular congestion with interstitial edema, BNP only noted to be 237 however unclear significance given patient's entire picture highly suggestive of fluid overload. Patient given 40 of IV Lasix and hospitalist contacted for admission. Patient clinically improved with IV diuresis, patient was able to ambulate with improved symptoms, she was switched to p.o. diuretics and did tolerate these with no decompensation overnight, suspect her heart failure exacerbation was secondary to noncompliance given initial reported missing doses of Lasix, lack of fluid restriction, as well as hypothyroidism as TSH still 14 and on discussion patient taking Synthroid at night/suboptimally. Patient stable on home dose of Lasix with fluid restriction and Synthroid in the a.m., feel it is reasonable to discharge home on home regimen with education on fluid restriction, importance of taking her medications and taking Synthroid in the a.m. Discussed Synthroid instructions (as below) with patient she verbalized understanding, stressed fluid restriction and compliance of Lasix and patient verbalized understanding. At this point breathing is improving and suspect patient remaining in the hospital will lead to increased weakness and decreased functional status. Discussed with patient discharge versus continued hospitalization given the above concerns and the fact that she is tolerating oral Lasix and she agrees with discharge home. Discharge instructions as (more content not included)...[facility]10-08-2025 Progress note Author Asya Hernandez [facility] Note Date/Time July 11, 2025 10 :58am [facility] Medical Records Department [address] [place] [address] Progress Note - Hospitalist 07/11/25 1054 MR#: [id number] Acct: [id number] Name: SAMANTHA ROMERO Rep #:[id number] : 1965 59 From: Asya Hernandez MD PCP: Dr. Sarina Adams MD Status:AD M IN Location: [place] [address] Reason for Visit Chief Complaint: Shortness of breath Subjective Subjective Patient Basali having improved breathing however still feels she is not ready for discharge still having some lower extremity swelling Objective Data Objective Data Vital Signs: Vital Signs Temp Pulse Resp BP Pulse Ox O2 Del Method O2 Flow Rate 97.2 F L 64 18 133/60 H 96 Nasal Cannula 2 07/11/25 08:55 07/11/25 08:55 07/11/25 08:55 07/11/25 08:55 07/11/25 08:55 07/11/25 08:55 07/11/25 08:55 Oxygen Flow Rate (L/min) 2 Oxygen Delivery Method Nasal Cannula Weight: 120.2 kg Body Mass Index (BMI) 45.4 Intake & Output: Intake and Output for Last 24 Hours 07/09/25 07/10/25 07/11/25 23:59 23:59 23:59 Intake Total 1360 / 1600 480 / 480 Output Total 2150 / 3050 1999 / 1999 Balance -790 / -1450 -1520 / -1520 Lab / Micro Data 07/11/25 05:34 07/11/25 05:34 Labs: Laboratory Results - last 24 hr 07/10/25 08:11: POC Glucose 81 07/10/25 11:29: POC Glucose 93 07/10/25 16:53: POC Glucose 97 07/10/25 22:05: POC Glucose 100 07/11/25 05:34: WBC 5.2, RBC 3.72 L, Hgb 10.6 L, Hct 33.9 L, MCV 91.1, MCH 28.5,MCHC 31.3 L, RDW Std Deviation 51.5 H, RDW Coeff of Catina 15.4 H, Plt Count 128 L,MPV 11.4, Sodium 143, Potassium 4.0, Chloride 103, Carbon Dioxide 30.9, Anion Gap 9, BUN 33 H, Creatinine 1.52 H, Estim Creat Clear Calc 50.90, Est GFR (MDRD)Non-Af 39 L, BUN/Creatinine Ratio 21.9 H, Glucose 127 H, Calcium 9.2 07/11/25 08:42: POC Glucose 103 Radiography Diagnostic Testing: Radiology Impression Echocardiogram 07/09/25 19:17 Interpretation Summary Normal LV size. Left ventricular systolic function is normal. The left ventricular ejection fraction is 55 %. Small (<1.0 cm) pericardial effusion. There are no echocardiographic indications of cardiac tamponade. Mild (1+) aortic valve insufficiency. Ordering Physician: Tavo Nielson Performed By: Shane Hart RCS Physical Exam Narrative General: Alert, no apparent distress HEENT: Atraumatic, normocephalic Eyes: Anicteric, normal conjunctiva, extraocular movements grossly intact Neck: Supple Respiratory: Diminished at the bases without any overt wheezes or rhonchi, normal respiratory effort Cardiovascular: Regular rate and rhythm GI: Soft, nontender, nondistended Extremities: Bilateral lower extremity edema, mild degree of pitting Musculoskeletal: Moving all extremities Neuro: No overt focal neurological deficits Skin: No rashes appreciated Psych: Cooperative Assessment & Plan Assessment/Plan (1) Fluid overload: (2) Acute on chronic hypoxic respiratory failure: PLAN: Plan 59F 59-year-old female with a history of hypothyroidism, type 2 diabetes, chronic hypoxic respiratory failure on 2 L nasal cannula, GERD who presented [facility] ED 07/10/2025 from her pulmonary office due to increased shortness of breath on exertion and weight gain. She has reportedly gained 13 pounds since last week when may have missed a few doses of her Lasix. She had a CT scan earlier today reportedly which showed fluid in her lungs andpulmonology sent her to the ED from the office for further evaluation. In the ED patient had pitting edema, noted weight gain and dyspnea on exertion and was hypoxic to 84% on her home nasal cannula. Chest x-ray showed cardiomegaly and vascular congestion with interstitial edema, BNP only noted to be 237 however unclear significance given patient's entire picture highly suggestive of fluid overload. Patient given 40 of IV Lasix and hospitalist contacted for admission. # Acute on chronic hypoxic respiratory failure suspect secondary to fluid overload -Admit to telemetry -proBNP 237 -CXR cardiomegaly with vascular congestion and interstitial edema -Continue IV lasix -Last echo in 2021 with normal EF and normal LV size, I do not see any evidence of history of heart failure in our documentation however patient appears to follow in an outside hospital system primarily -Repeat echo ordered and showed EF of 55% with mild concentric left ventricular hypertrophy and small less than 1 cm pericardial effusion with no indication of tamponade -Daily weights, I's and O's -Fluid restriction, heart healthy diet -07/11: Plan is going to be to discharge patient home, will see if she tolerates p.o. Lasix and has continued improvement, if so can likely DC tomorrow. #Type 2 diabetes mellitus -A1c this a.m. 8.5 -Glucose checks and sliding scale insulin -Continue long-acting insulin -07/11: Glucose 103, slightly decreased insulin to avoid hypoglycemia while inpatient as this is stricter control and as necessary and increases her risk ofhypoglycemia #Hypothyroidism -Continue Synthroid -TSH earlier this year was 79 -Repeat TSH today 15.9, discussed compliance with Synthroid the patient she reports she has been compliant. When asking if she takes it she noted she takesit at night because she was told not to take with her other medications, we discussed taking in the morning at least 2 hours before food or other medications and she verbalized understanding - Hypothyroidism could certainly contribute to her fluid overload, edema, and shortness of breath though I suspect this is a contributor but not the cause -07/11: Taking levothyroxine as prescribed # Normocytic anemia - Hemoglobin 10.4, vacillates with previous used to have been in similar range previously -07/11: Hemoglobin 10.6, stable Chronic medical problems and/or problems not being actively addressed during today's encounter: #GERD -Continue PPI #Morbid obesity -BMI documented as 45 kg/m? at time of admission -Complicates treatment, prognosis, outcomes -Recommend weight loss and lifestyle changes #DVT ppx: Lovenox SQ twice daily Asya Hernandez MD Charges/Coding Visit Charges Inpatient E&M: 25094 Subs Hosp L2 07/11/25 1058 <Electronically signed by Asya Hernandez MD> Cosigner Signature (if applicable): CC: ~ Signed [facility] Work Phone: 1(692) 148-688110-08-2025 Progress note [facility] Medical Records Department [address] [place] [address] Progress Note - Hospitalist 07/11/25 1054 MR#: [id number] Acct: [id number] Name: SAMANTHA ROMERO Rep #:[id number] : 1965 59 From: Asya Hernandez MD PCP: Dr. Sarina Adams MD Status:AD M IN Location: [place] [address] Reason for Visit Chief Complaint: Shortness of breath Subjective Subjective Patient Basali having improved breathing however still feels she is not ready for discharge still having some lower extremity swelling Objective Data Objective Data Vital Signs: Vital Signs Temp Pulse Resp BP Pulse Ox O2 Del Method O2 Flow Rate 97.2 F L 64 18 133/60 H 96 Nasal Cannula 2 07/11/25 08:55 07/11/25 08:55 07/11/25 08:55 07/11/25 08:55 07/11/25 08:55 07/11/25 08:55 07/11/25 08:55 Oxygen Flow Rate (L/min) 2 Oxygen Delivery Method Nasal Cannula Weight: 120.2 kg Body Mass Index (BMI) 45.4 Intake & Output: Intake and Output for Last 24 Hours 07/09/25 07/10/25 07/11/25 23:59 23:59 23:59 Intake Total 1360 / 1600 480 / 480 Output Total 2150 / 3050 1999 Balance -790 / -1450 -1520 / -1520 Lab / Micro Data 07/11/25 05:34 07/11/25 05:34 Labs: Laboratory Results - last 24 hr 07/10/25 08:11: POC Glucose 81 07/10/25 11:29: POC Glucose 93 07/10/25 16:53: POC Glucose 97 07/10/25 22:05: POC Glucose 100 07/11/25 05:34: WBC 5.2, RBC 3.72 L, Hgb 10.6 L, Hct 33.9 L, MCV 91.1, MCH 28.5,MCHC 31.3 L, RDW Std Deviation 51.5 H, RDW Coeff of Catina 15.4 H, Plt Count 128 L,MPV 11.4, Sodium 143, Potassium 4.0, Chloride 103, Carbon Dioxide 30.9, Anion Gap 9, BUN 33 H, Creatinine 1.52 H, Estim Creat Clear Calc 50.90, Est GFR (MDRD)Non-Af 39 L, BUN/Creatinine Ratio 21.9 H, Glucose 127 H, Calcium 9.2 07/11/25 08:42: POC Glucose 103 Radiography Diagnostic Testing: Radiology Impression Echocardiogram 07/09/25 19:17 Interpretation Summary Normal LV size. Left ventricular systolic function is normal. The left ventricular ejection fraction is 55 %. Small (<1.0 cm) pericardial effusion. There are no echocardiographic indications of cardiac tamponade. Mild (1+) aortic valve insufficiency. Ordering Physician: Tavo Nielson Performed By: Shane Hart RCS Physical Exam Narrative General: Alert, no apparent distress HEENT: Atraumatic, normocephalic Eyes: Anicteric, normal conjunctiva, extraocular movements grossly intact Neck: Supple Respiratory: Diminished at the bases without any overt wheezes or rhonchi, normal respiratory effort Cardiovascular: Regular rate and rhythm GI: Soft, nontender, nondistended Extremities: Bilateral lower extremity edema, mild degree of pitting Musculoskeletal: Moving all extremities Neuro: No overt focal neurological deficits Skin: No rashes appreciated Psych: Cooperative Assessment & Plan Assessment/Plan (1) Fluid overload: (2) Acute on chronic hypoxic respiratory failure: PLAN: Plan 59F 59-year-old female with a history of hypothyroidism, type 2 diabetes, chronic hypoxic respiratory failure on 2 L nasal cannula, GERD who presented [facility] ED 07/10/2025 from herpulmonary office due to increased shortness of breath on exertion and weight gain. She has reportedly gained 13 pounds since last week when may have missed a few doses of her Lasix. She had a CT scanearlier today reportedly which showed fluid in her lungs andpulmonology sent her to the ED from the office for further evaluation. In the ED patient had pitting edema, noted weight gain and dyspneaon exertion and was hypoxic to 84% on her home nasal cannula. Chest x-ray showed cardiomegaly and va scular congestion with interstitial edema, BNP only noted to be 237 however unclear significance given patient's entire picture highly suggestive of fluid overload. Patient given 40 of IV Lasix and hospitalist contacted for admission. # Acute on chronic hypoxic respiratory failure suspect secondary to fluid overload -Admit to telemetry -proBNP 237 -CXR cardiomegaly with vascular congestion and interstitial edema -Continue IV lasix -Last echo in 2021 with normal EF and normal LV size, I do not see any evidence of history of heartfailure in our documentation however patient appears to follow in an outside hospital system primarily -Repeat echo ordered and showed EF of 55% with mild concentric left ventricular hypertrophy and small less than 1 cm pericardial effusion with no indication of tamponade -Daily weights, I's and O's -Fluid restriction, heart healthy diet -07/11: Plan is going to be to discharge patient home, will see if she tolerates p.o. Lasix and has continued improvement, if so can likely DC tomorrow. #Type 2 diabetes mellitus -A1c this a.m. 8.5 -Glucose checks and sliding scale insulin -Continue long-acting insulin -07/11: Glucose 103, slightly decreased insulin to avoid hypoglycemia while inpatient as this is stricter control and as necessary and increases her risk ofhypoglycemia #Hypothyroidism -Continue Synthroid -TSH earlier this year was 79 -Repeat TSH today 15.9, discussed compliance with Synthroid the patient she reports she has been compliant. When asking if she takes it she noted she takesit at night because she was told not to takewith her other medications, we discussed taking in the morning at least 2 hours before food or other medications and she verbalized understanding - Hypothyroidism could certainly contribute to her fluid overload, edema, and shortness of breath though I suspect this is a contributor but not the cause -07/11: Taking levothyroxine as prescribed # Normocytic anemia - Hemoglobin 10.4, vacillates with previous used to have been in similar range previously -07/11: Hemoglobin 10.6, stable Chronic medical problems and/or problems not being actively addressed during today's encounter: #GERD -Continue PPI #Morbid obesity -BMI documented as 45 kg/m? at time of admission -Complicates treatment, prognosis, outcomes -Recommend weight loss and lifestyle changes #DVT ppx: Lovenox SQ twice daily Asya Hernandez MD Charges/Coding Visit Charges Inpatient E&M: 48574 Subs Hosp L2 07/11/25 1058 Cosigner Signature (if applicable): CC: ~ Signed [facility]10-07-2025 Progress note Author Asya Hernandez [facility] Note Date/Time July 10, 2025 2: 18pm [facility] Medical Records Department [address] [place] [address] Progress Note - Hospitalist 07/10/25 0733 MR#: [id number] Acct: [id number] Name: SAMANTHA ROMERO Rep #:[id number] : 1965 59 From: Asya Hernandez MD PCP: Dr. Sarina Adams MD Status:AD M IN Location: [place] [address] Reason for Visit Chief Complaint: Shortness of breath Subjective Subjective Patient feeling little bit better, still having some swelling and shortness of breath but slowly improving with Lasix Objective Data Objective Data Vital Signs: Vital Signs Temp Pulse Resp BP Pulse Ox O2 Del Method O2 Flow Rate 97.5 F L 72 18 108/67 95 Nasal Cannula 2 07/10/25 03:45 07/10/25 03:45 07/10/25 03:45 07/10/25 03:45 07/10/25 03:45 07/10/25 03:45 07/10/25 03:45 Oxygen Flow Rate (L/min) 2 Oxygen Delivery Method Nasal Cannula Weight: 119.2 kg Body Mass Index (BMI) 45.1 Intake & Output: Intake and Output for Last 24 Hours 07/08/25 07/09/25 07/10/25 23:59 23:59 23:59 Intake Total 480 / 480 Output Total 950 / 950 Balance -470 / -470 Lab / Micro Data 07/10/25 04:41 07/10/25 04:41 Labs: Laboratory Results - last 24 hr 07/09/25 16:35: WBC 5.4, RBC 3.95 L, Hgb 11.0 L, Hct 35.9 L, MCV 90.9, MCH 27.8,MCHC 30.6 L, RDW Std Deviation 50.4 H, RDW Coeff of Catina 15.1 H, Plt Count 131 L,MPV 11.2, Immature Gran % (Auto) 0.700, Neut % (Auto) 71.8 H, Lymph % (Auto) 15.5 L, [place] % (Auto) 7.2, Eos % (Auto) 4.4, Baso % (Auto) 0.4, Absolute Neuts (auto) 3.9, Absolute Lymphs (auto) 0.84, Nucleated RBC % 0, Sodium 143, Potassium 4.6, Chloride 107, Carbon Dioxide 26.4, Anion Gap 10, BUN 31 H, Creatinine 1.15, Estim Creat Clear Calc 66.59, Est GFR (MDRD) Non-Af 55 L, BUN/Creatinine Ratio 26.6 H, Glucose 225 H, Calcium 9.0, NT pro BNP II 237 07/09/25 22:17: POC Glucose 210 H 07/10/25 04:41: WBC 5.2, RBC 3.67 L, Hgb 10.4 L, Hct 32.9 L, MCV 89.6, MCH 28.3,MCHC 31.6 L, RDW Std Deviation 50.6 H, RDW Coeff of Catina 15.5 H, Plt Count 135 L,MPV 11.6, Immature Gran % (Auto) 0.800, Neut % (Auto) 59.1, Lymph % (Auto) 23.4,[place] % (Auto) 9.5, Eos % (Auto) 6.8 H, Baso % (Auto) 0.4, Absolute Neuts (auto) 3.1, Absolute Lymphs (auto) 1.21, Nucleated RBC % 0, Sodium 145, Potassium 4.0, Chloride 108, Carbon Dioxide 29.4, Anion Gap 8, BUN 33 H, Creatinine 1.34 H, Estim Creat Clear Calc 57.45, Est GFR (MDRD) Non-Af 46 L, BUN/Creatinine Ratio 24.3 H, Glucose 124 H, Hemoglobin A1c 8.5 H, Calcium 9.1 Radiography Diagnostic Testing: Radiology Impression Chest X-Ray 07/09/25 16:53 IMPRESSION: Cardiomegaly with vascular congestion and interstitial edema. No sizable pleural effusion. Reading Location: [facility] Physical Exam Narrative General: Alert, no apparent distress HEENT: Atraumatic, normocephalic Eyes: Anicteric, normal conjunctiva, extraocular movements grossly intact Neck: Supple Respiratory: Diminished at the bases, slight increased respiratory effort Cardiovascular: Regular rate and rhythm GI: Soft, nontender, nondistended Extremities: Bilateral lower extremity edema, mild degree of pitting Musculoskeletal: Moving all extremities Neuro: No overt focal neurological deficits Skin: No rashes appreciated Psych: Cooperative Assessment & Plan Assessment/Plan (1) Fluid overload: (2) Acute on chronic hypoxic respiratory failure: PLAN: Plan 59F 59-year-old female with a history of hypothyroidism, type 2 diabetes, chronic hypoxic respiratory failure on 2 L nasal cannula, GERD who presented [facility] ED 07/10/2025 from her pulmonary office due to increased shortness of breath on exertion and weight gain. She has reportedly gained 13 pounds since last week when may have missed a few doses of her Lasix. She had a CT scan earlier today reportedly which showed fluid in her lungs andpulmonology sent her to the ED from the office for further evaluation. In the ED patient had pitting edema, noted weight gain and dyspnea on exertion and was hypoxic to 84% on her home nasal cannula. Chest x-ray showed cardiomegaly and vascular congestion with interstitial edema, BNP only noted to be 237 however unclear significance given patient's entire picture highly suggestive of fluid overload. Patient given 40 of IV Lasix and hospitalist contacted for admission. # Acute on chronic hypoxic respiratory failure suspect secondary to fluid overload -Admit to telemetry -proBNP 237 -CXR cardiomegaly with vascular congestion and interstitial edema -Continue IV lasix -Last echo in 2021 with normal EF and normal LV size, I do not see any evidence of history of heart failure in our documentation however patient appears to follow in an outside hospital system primarily -Repeat echo ordered and showed EF of 55% with mild concentric left ventricular hypertrophy and small less than 1 cm pericardial effusion with no indication of tamponade -Daily weights, I's and O's -Fluid restriction, heart healthy diet #Type 2 diabetes mellitus -A1c this a.m. 8.5 -Glucose checks and sliding scale insulin -Continue long-acting insulin #Hypothyroidism -Continue Synthroid -TSH earlier this year was 79 -Repeat TSH today 15.9, discussed compliance with Synthroid the patient she reports she has been compliant. When asking if she takes it she noted she takesit at night because she was told not to take with her other medications, we discussed taking in the morning at least 2 hours before food or other medications and she verbalized understanding - Hypothyroidism could certainly contribute to her fluid overload, edema, and shortness of breath though I suspect this is a contributor but not the cause # Normocytic anemia - Hemoglobin 10.4, vacillates with previous used to have been in similar range previously #GERD -Continue PPI #Morbid obesity -BMI documented as 45 kg/m? at time of admission -Complicates treatment, prognosis, outcomes -Recommend weight loss and lifestyle changes #DVT ppx: Lovenox SQ twice daily Asya Hernnadez MD Charges/Coding Visit Charges Inpatient E&M: 83693 Subs Hosp L2 07/10/25 1418 <Electronically signed by Asya Hernandez MD> Cosigner Signature (if applicable): CC: ~ Signed [facility] Work Phone: 1(449) 926-670610-07-2025 Progress note [facility] Medical Records Department [address] [place] [address] Progress Note - Hospitalist 07/10/25 0733 MR#: [id number] Acct: [id number] Name: SAMANTHA ROMERO Kerri Rep #:[id number] : 1965 59 From: Asya Hernandez MD PCP: Dr. Sarina Adams MD Status:AD M IN Location: [place] [address] Reason for Visit Chief Complaint: Shortness of breath Subjective Subjective Patient feeling little bit better, still having some swelling and shortness of breath but slowly improving with Lasix Objective Data Objective Data Vital Signs: Vital Signs Temp Pulse Resp BP Pulse Ox O2 Del Method O2 Flow Rate 97.5 F L 72 18 108/67 95 Nasal Cannula 2 07/10/25 03:45 07/10/25 03:45 07/10/25 03:45 07/10/25 03:45 07/10/25 03:45 07/10/25 03:45 07/10/25 03:45 Oxygen Flow Rate (L/min) 2 Oxygen Delivery Method Nasal Cannula Weight: 119.2 kg Body Mass Index (BMI) 45.1 Intake & Output: Intake and Output for Last 24 Hours 07/08/25 07/09/25 07/10/25 23:59 23:59 23:59 Intake Total 480 / 480 Output Total 950 / 950 Balance -470 / -470 Lab / Micro Data 07/10/25 04:41 07/10/25 04:41 Labs: Laboratory Results - last 24 hr 07/09/25 16:35: WBC 5.4, RBC 3.95 L, Hgb 11.0 L, Hct 35.9 L, MCV 90.9, MCH 27.8,MCHC 30.6 L, RDW Std Deviation 50.4 H, RDW Coeff of Catina 15.1 H, Plt Count 131 L,MPV 11.2, Immature Gran % (Auto) 0.700,Neut % (Auto) 71.8 H, Lymph % (Auto) 15.5 L, [place] % (Auto) 7.2, Eos % (Auto) 4.4, Baso % (Auto) 0.4, Absolute Neuts (auto) 3.9, Absolute Lymphs (auto) 0.84, Nucleated RBC % 0, Sodium 143, Potassium 4.6, Chloride 107, Carbon Dioxide 26.4, Anion Gap 10, BUN 31 H, Creatinine 1.15, Estim Creat Clear Calc 66.59, Est GFR (MDRD) Non-Af 55 L, BUN/Creatinine Ratio 26.6 H, Glucose 225 H, Calcium 9.0, NT pro BNP II 237 07/09/25 22:17: POC Glucose 210 H 07/10/25 04:41: WBC 5.2, RBC 3.67 L, Hgb 10.4 L, Hct 32.9 L, MCV 89.6, MCH 28.3,MCHC 31.6 L, RDW Std Deviation 50.6 H, RDW Coeff of Catina 15.5 H, Plt Count 135 L,MPV 11.6, Immature Gran % (Auto) 0.800,Neut % (Auto) 59.1, Lymph % (Auto) 23.4,[place] % (Auto) 9.5, Eos % (Auto) 6.8 H, Baso % (Auto) 0.4, Absolute Neuts (auto) 3.1, Absolute Lymphs (auto) 1.21, Nucleated RBC % 0, Sodium 145, Potassium 4.0,Chloride 108, Carbon Dioxide 29.4, Anion Gap 8, BUN 33 H, Creatinine 1.34 H, Estim Creat Clear Calc57.45, Est GFR (MDRD) Non-Af 46 L, BUN/Creatinine Ratio 24.3 H, Glucose 124 H, Hemoglobin A1c 8.5 H, Calcium 9.1 Radiography Diagnostic Testing: Radiology Impression Chest X-Ray 07/09/25 16:53 IMPRESSION: Cardiomegaly with vascular congestion and interstitial edema. No sizable pleural effusion. Reading Location: [facility] Physical Exam Narrative General: Alert, no apparent distress HEENT: Atraumatic, normocephalic Eyes: Anicteric, normal conjunctiva, extraocular movements grossly intact Neck: Supple Respiratory: Diminished at the bases, slight increased respiratory effort Cardiovascular: Regular rate and rhythm GI: Soft, nontender, nondistended Extremities: Bilateral lower extremity edema, mild degree of pitting Musculoskeletal: Moving all extremities Neuro: No overt focal neurological deficits Skin: No rashes appreciated Psych: Cooperative Assessment & Plan Assessment/Plan (1) Fluid overload: (2) Acute on chronic hypoxic respiratory failure: PLAN: Plan 59F 59-year-old female with a history of hypothyroidism, type 2 diabetes, chronic hypoxic respiratory failure on 2 L nasal cannula, GERD who presented [facility] ED 07/10/2025 from herpulmonary office due to increased shortness of breath on exertion and weight gain. She has reportedly gained 13 pounds since last week when may have missed a few doses of her Lasix. She had a CT scanearlier today reportedly which showed fluid in her lungs andpulmonology sent her to the ED from the office for further evaluation. In the ED patient had pitting edema, noted weight gain and dyspneaon exertion and was hypoxic to 84% on her home nasal cannula. Chest x-ray showed cardiomegaly and va scular congestion with interstitial edema, BNP only noted to be 237 however unclear significance given patient's entire picture highly suggestive of fluid overload. Patient given 40 of IV Lasix and hospitalist contacted for admission. # Acute on chronic hypoxic respiratory failure suspect secondary to fluid overload -Admit to telemetry -proBNP 237 -CXR cardiomegaly with vascular congestion and interstitial edema -Continue IV lasix -Last echo in 2021 with normal EF and normal LV size, I do not see any evidence of history of heartfailure in our documentation however patient appears to follow in an outside hospital system primarily -Repeat echo ordered and showed EF of 55% with mild concentric left ventricular hypertrophy and small less than 1 cm pericardial effusion with no indication of tamponade -Daily weights, I's and O's -Fluid restriction, heart healthy diet #Type 2 diabetes mellitus -A1c this a.m. 8.5 -Glucose checks and sliding scale insulin -Continue long-acting insulin #Hypothyroidism -Continue Synthroid -TSH earlier this year was 79 -Repeat TSH today 15.9, discussed compliance with Synthroid the patient she reports she has been compliant. When asking if she takes it she noted she takesit at night because she was told not to takewith her other medications, we discussed taking in the morning at least 2 hours before food or other medications and she verbalized understanding - Hypothyroidism could certainly contribute to her fluid overload, edema, and shortness of breath though I suspect this is a contributor but not the cause # Normocytic anemia - Hemoglobin 10.4, vacillates with previous used to have been in similar range previously #GERD -Continue PPI #Morbid obesity -BMI documented as 45 kg/m? at time of admission -Complicates treatment, prognosis, outcomes -Recommend weight loss and lifestyle changes #DVT ppx: Lovenox SQ twice daily Asya Hernandez MD Charges/Coding Visit Charges Inpatient E&M: 94240 Subs Hosp L2 07/10/25 1416 Cosigner Signature (if applicable): CC: ~ Signed [facility]10-06-2025 History and physical note Author Tavo Nielson [facility] Note Date/Time July 09, 2025 6: 40pm [facility] Medical Records Department [address] [place] [address] H&P Exam - Hospitalist 07/09/25 1834 MR#: [id number] Acct: [id number] Name: SAMANTHA ROMERO Rep #:[id number] : 1965 59 From: Tavo Nielson DO PCP: Dr. Sarina Adams MD Status:AD M IN Location: [facility] [id number] HPI - General General Date of Service: 07/09/25 Chief Complaint: Shortness of breath HPI Narrative SAMANTHA ROMERO, is a 59 F who presents with shortness of breath. This is a 59-year-old female who is on oxygen since having COVID 4-1/2 years ago. 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 Shehas put on roughly 15 pounds in the past few days and has had increased lower extremity edema extending up into her abdomen. She was sent to the emergency room where she had chest x-ray showed some pulmonary vascular congestion. She received 40 mg of IV furosemide. They attempted to ambulate her but she became hypoxic with her oxygen that she does require at home. [ ] [facility] Medical History COVID History of hypothyroidism Type 2 diabetes mellitus treated with insulin Chronic respiratory failure with hypoxia Pericardial effusion Thrombocytopenia Anemia Elevated lipase Urinary retention Obesity Former tobacco use UTI (urinary tract infection) Kidney stones Migraines Hypothyroid Hypercholesteremia Hypertension Type 2 diabetes mellitus Home Medications ?Medication ?Instructions ?Recorded ?Last Taken ?Type estradiol 0.01% (0.1 mg/gram) 3 g vaginal .COMPLEX hea lth 03/25/21 Unknown History vaginal cream maintenance fenofibrate 160 mg tablet 160 mg PO DAILY cholesterol 03/25/21 07/09/25 History vitamin E 268 mg (400 unit) capsule 400 unit PO DAILY supplement 03/25/21 07/09/25 History dicyclomine 10 mg capsule 10 mg PO ACHS abdominal pain 07/06/21 Unknown History insulin degludec 100 unit/mL (3 86 unit subcut QHS jessica betes 07/06/21 07/08/25 History mL) subcutaneous pen (Tresiba FlexTouch U-100 insulin) meloxicam 15 mg tablet 15 mg PO DAILY PRN Pain 0 12/2207/09/25 History rosuvastatin 10 mg tablet 10 mg PO DAILY cholesterol 1 07/08/25 History cholecalciferol (vitamin D3) 125 125 mcg PO DAILY SUPP LEMENT 05/03/24 07/09/25 History mcg (5,000 unit) capsule omeprazole 40 mg capsule,delayed 40 mg PO DAILY STOMAC H 05/03/24 07/09/25 History release dulaglutide 4.5 mg/0.5 mL 4.5 mg subcut QWEEK BLOOD JOHNSON GAR 10/27/24 07/08/25 History subcutaneous pen injector (Trulicity) empagliflozin 25 mg tablet 25 mg PO DAILY 07/09/25 Unk denisen History (Jardiance) Held on 07/09/25. Instructions: Ordered furosemide 40 mg tablet 40 mg PO BID EDEMA 07/09/25 07/08/25 History gabapentin 800 mg tablet 800 mg PO TID NEUROPATHY 03/2807/09/25 History hydrocodone-acetaminophen 5-325mg 1 tab PO Q6H PRN tsering n 07/09/25 07/04/25 History 5mg-325mg insulin lispro 100 unit/mL 22 unit subcut TIDCM DIABET ES 07/09/25 Unknown History subcutaneous pen (Humalog KwikPen (U-100) Insulin) insulin lispro 100 unit/mL See Protocol subcut DAILY D IABETES 07/09/25 Unknown History subcutaneous pen (Humalog KwikPen (U-100) Insulin) levothyroxine 300 mcg tablet 300 mcg PO DAILY THYROID 07/09/25 07/08/25 History peg 400-propylene glycol 0.4 %-0.3 1 drp ophthalmic (e ye) 4X/DAY DRY 07/09/25 07/07/25 History % eye drops (Systane Ultra) EYE potassium chloride 10 mEq 10 meq PO DAILY POTASSIUM 07/09/25 History tablet,extended release Allergy/AdvReac Type Severity Reaction Status Date / Time metformin AdvReac Diarrhea Verified 07/09/25 16:21 oxycodone (From Percocet) AdvReac upset Verified 07/09/25 16:21 stomach/off balance Family History Mother Diabetes Father Diabetes Surgical History Previous section History of appendectomy Social History household members: none Smoking Status: Former smoker how long ago did patient quit smoking: Quit cigarette tobacco in 2015, 1 ppd since teenager until quit. alcohol intake: never substance use type: does not use ROS ROS Narrative Midsternal chest pain with deep respirations. Coughing up some reynolds phlegm. All review of systems were negative except as mentioned above in the history of present illness and the other review of systems. Vital Signs Vital Signs Vital Signs: 07/09/25 16:21 07/09/25 16:41 07/09/25 16:42 Temperature 35.6 C L Temperature Source Temporal Pulse Rate 71 Respiratory Rate 18 Respiratory Effort Short of Breath Respiratory Depth Normal Respiratory Pattern Normal Blood Pressure 146/77 H Blood Pressure Mean 100 Pulse Ox 93 Oxygen Delivery Method Nasal Cannula Nasal Cannula Nasal Cannula Oxygen Flow Rate (L/min) 2 2 2 07/09/25 16:43 07/09/25 16:47 07/09/25 16:50 Temperature Temperature Source Pulse Rate 73 Respiratory Rate 17 Respiratory Effort Short of Breath Respiratory Depth Respiratory Pattern Blood Pressure 132/110 H Blood Pressure Mean 117 Pulse Ox 100 Oxygen Delivery Method Oxygen Flow Rate (L/min) 07/09/25 17:00 07/09/25 17:15 07/09/25 17:30 Temperature Temperature Source Pulse Rate Respiratory Rate Respiratory Effort Respiratory Depth Respiratory Pattern Blood Pressure 157/87 H Blood Pressure Mean 107 Pulse Ox 97 97 98 Oxygen Delivery Method Oxygen Flow Rate (L/min) 07/09/25 17:45 07/09/25 18:05 07/09/25 18:06 Temperature Temperature Source Pulse Rate 76 Respiratory Rate 19 H Respiratory Effort Respiratory Depth Respiratory Pattern Blood Pressure 141/70 H Blood Pressure Mean 91 Pulse Ox 96 92 Oxygen Delivery Method Oxygen Flow Rate (L/min) 07/09/25 18:15 07/09/25 18:23 Temperature 37.2 C Temperature Source Pulse Rate 71 71 Respiratory Rate 15 19 H Respiratory Effort Respiratory Depth Respiratory Pattern Blood Pressure 181/73 H 181/73 H Blood Pressure Mean 101 109 Pulse Ox 98 99 Oxygen Delivery Method Nasal Cannula Oxygen Flow Rate (L/min) 2 Weight Weight: 121.608 kg Body Mass Index (BMI) 47.5 Physical Exam Const alert and no apparent distress Constitutional Narrative: On oxygen. No respiratory distress. No conversational dyspnea. HEENT normocephalic and head/scalp atraumatic Resp normal respiratory effort, no retractions, no use of accessory muscles and clearto auscultation bilaterally Cardio regular rate, regular rhythm, S1 normal heart sound and S2 normal heart sound GI normal to inspection, nondistended, normoactive bowel sounds, soft to palpation,non-tender and non-distended Extremity Extremity Narrative: Tight bilateral lower extremity edema. Neuro moves all extremities Sensorium / Orientation: awake and alert Speech: speech normal Psych Psych Narrative: Flat affect Results Lab / Micro Data Attestation: I reviewed the patient's lab results. 07/09/25 16:35 07/09/25 16:35 Labs: Laboratory Results - last 24 hr 07/09/25 16:35: WBC 5.4, RBC 3.95 L, Hgb 11.0 L, Hct 35.9 L, MCV 90.9, MCH 27.8,MCHC 30.6 L, RDW Std Deviation 50.4 H, RDW Coeff of Catina 15.1 H, Plt Count 131 L,MPV 11.2, Immature Gran % (Auto) 0.700, Neut % (Auto) 71.8 H, Lymph % (Auto) 15.5 L, [place] % (Auto) 7.2, Eos % (Auto) 4.4, Baso % (Auto) 0.4, Absolute Neuts (auto) 3.9, Absolute Lymphs (auto) 0.84, Nucleated RBC % 0, Sodium 143, Potassium 4.6, Chloride 107, Carbon Dioxide 26.4, Anion Gap 10, BUN 31 H, Creatinine 1.15, Estim Creat Clear Calc 66.59, Est GFR (MDRD) Non-Af 55 L, BUN/Creatinine Ratio 26.6 H, Glucose 225 H, Calcium 9.0, NT pro BNP II 237 EKG Initial EKG: Attestation: I personally reviewed and interpreted this EKG as follows: Prior EKG tracings: available for review EKG Rhythm Intrepretation: Sinus Rhythm Imaging Radiology Impression Chest X-Ray 07/09/25 16:53 IMPRESSION: Cardiomegaly with vascular congestion and interstitial edema. No sizable pleural effusion. Reading Location: [id number] Assessment & Plan Assessment/Plan (1) CHF exacerbation: PLAN: Unclear type. Weight is gone up 15 pounds in the past few days and she does have clinical evidence of volume overload and chest x-ray shows pulmonary vascular congestion. Patient received 40 mg of IV furosemide in emergency room and will continue with 40 mg IV twice daily. Additionally, patient be fluid restricted. Patient states that she drinks several bottles of fluid as well as other sugar-free beverages throughout the day. I think the patient would benefit from fluid restricted diet and further instructions about checking her weight daily. Will repeat echocardiogram as last 1 was performed in our EMR in 2021. PLAN: Plan Diabetes mellitus type 2: Insulin-dependent. Continue with basal, prandial and will add sliding scale insulin. Check an A1c. Obesity class III: Complicates care and recovery. Weight loss advised. Nutrition to provide further instructions. Diabetic neuropathy: Continue with glargine, patient has prescription for hydrocodone/acetaminophen we will continue with that. VTE prophylaxis with enoxaparin CODE STATUS: Addressed with the patient. Patient wishes to be full code. Charges/Coding Visit Charges Inpatient E&M: 24623 Init Hosp L2 07/09/25 1840 <Electronically signed by Tavo Nielson DO> Cosigner Signature (if applicable): CC: Dr. Tavo Nielson DO; Dr. Sarina Adams MD~ Signed [facility] Work Phone: 1(368) 884-688910-06-2025 Evaluation note* Diagnosis Onset Date Resolution Status Admit Date 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 re with preserved ejection fraction acute July 09 6:29pm Acute on chronic hypoxic respiratory failure chronic July 09, 2025 6:29pm CHF exacerbation chronic July 09, 2025 6:29pm Dyspnea on exertion inactive Octob er 2024 6:29pm Swelling of both lower extremities inactive July 09 6:29pm Fluid overload deleted July 6:29pm [facility] Work Phone: 1(386) 592-885310-06-2025 Discharge summary Author Niranjan Leblanc [facility] Note Date/Time July 09, 2025 6: 22pm [facility] Medical Records Department [address] [place] [address] Emergency Department Summary 07/09/25 MR#: [id number] Acct: [id number] Name: SAMANTHA ROMERO Rep #:[id number] : 1965 59 From: Niranjan Leblanc DO PCP: Dr. Sarina Adams MD Status:RE G ER Location: ED HPI History of Present Illness Chief Complaint: Shortness of Breath Narrative Narrative: Patient is a 59-year-old female with past medical history of hypothyroidism, type 2 diabetes, chronic respiratory failure with hypoxia chronically on 2 L nasal cannula, pericardial effusion, migraines, hypertension, hypercholesteremiawho presented to the emergency department from the pulmonary office with a chiefcomplaint of worsening shortness of breath on exertion as well as increased weight gain. According to the patient she has increased her weight by approximately 13 pounds since last week. States that there is a chance that shehas missed few doses of her Lasix. States that she had a CT scan earlier today which showed fluid in her lungs and the pulmonology office sent her immediately here to the emergency department to be further evaluated. [facility] Medical History COVID History of hypothyroidism Type 2 diabetes mellitus treated with insulin Chronic respiratory failure with hypoxia Pericardial effusion Thrombocytopenia Anemia Elevated lipase Urinary retention Obesity Former tobacco use UTI (urinary tract infection) Kidney stones Migraines Hypothyroid Hypercholesteremia Hypertension Type 2 diabetes mellitus Home Medications ?Medication ?Instructions ?Recorded ?Last Taken ?Type estradiol 0.01% (0.1 mg/gram) 3 g vaginal .COMPLEX hea lth 03/25/21 Unknown History vaginal cream maintenance fenofibrate 160 mg tablet 160 mg PO DAILY cholesterol 03/25/21 07/09/25 History vitamin E 268 mg (400 unit) capsule 400 unit PO DAILY supplement 03/25/21 07/09/25 History dicyclomine 10 mg capsule 10 mg PO ACHS abdominal pain 07/06/21 Unknown History insulin degludec 100 unit/mL (3 86 unit subcut QHS jessica betes 07/06/21 07/08/25 History mL) subcutaneous pen (Tresiba FlexTouch U-100 insulin) meloxicam 15 mg tablet 15 mg PO DAILY PRN Pain 12/2207/09/25 History rosuvastatin 10 mg tablet 10 mg PO DAILY cholesterol 1 07/08/25 History cholecalciferol (vitamin D3) 125 125 mcg PO DAILY SUPP LEMENT 05/03/24 07/09/25 History mcg (5,000 unit) capsule omeprazole 40 mg capsule,delayed 40 mg PO DAILY STOMAC H 05/03/24 07/09/25 History release dulaglutide 4.5 mg/0.5 mL 4.5 mg subcut QWEEK BLOOD JOHNSON GAR 10/27/24 07/08/25 History subcutaneous pen injector (Trulicity) empagliflozin 25 mg tablet 25 mg PO DAILY 07/09/25 Unk nown History (Jardiance) Held on 07/09/25. Instructions: Ordered furosemide 40 mg tablet 40 mg PO BID EDEMA 07/09/25 07/08/25 History gabapentin 800 mg tablet 800 mg PO TID NEUROPATHY 03/2807/09/25 History hydrocodone-acetaminophen 5-325mg 1 tab PO Q6H PRN tsering n 07/09/25 07/04/25 History 5mg-325mg insulin lispro 100 unit/mL 22 unit subcut TIDCM DIABET ES 07/09/25 Unknown History subcutaneous pen (Humalog KwikPen (U-100) Insulin) insulin lispro 100 unit/mL See Protocol subcut DAILY D IABETES 07/09/25 Unknown History subcutaneous pen (Humalog KwikPen (U-100) Insulin) levothyroxine 300 mcg tablet 300 mcg PO DAILY THYROID 07/09/25 07/08/25 History peg 400-propylene glycol 0.4 %-0.3 1 drp ophthalmic (e ye) 4X/DAY DRY 07/09/25 07/07/25 History % eye drops (Systane Ultra) EYE potassium chloride 10 mEq 10 meq PO DAILY POTASSIUM 07/09/25 History tablet,extended release Allergy/AdvReac Type Severity Reaction Status Date / Time metformin AdvReac Diarrhea Verified 07/09/25 16:21 oxycodone (From Percocet) AdvReac upset Verified 07/09/25 16:21 stomach/off balance Family History Mother Diabetes Father Diabetes Surgical History Previous section History of appendectomy Social History household members: none Smoking Status: Former smoker how long ago did patient quit smoking: Quit cigarette tobacco in 2014, 1 ppd since teenager until quit. alcohol intake: never substance use type: does not use ROS ROS ED ROS Narrative Constitutional: Denies any fevers, chills, headaches Cardiovascular: Denies chest pain Respiratory: Complains of dyspnea on exertion as noted above as well as coughing Abdomen: Denies nausea vomit diarrhea : Denies urinary symptoms Neurological: Denies numbness, weakness, tingling Musculoskeletal: Denies back pain Skin: Denies any rashes or lesions EXAM Physical Exam Narrative Exam Narrative: General: Patient lying in bed rest comfortably did not appear to be acute distress Head: Atraumatic, normocephalic Eyes: PERRL bilaterally, EOMI bilateral, no conjunctival injection noted Neck: Soft, supple, trachea midline Cardiovascular: Regular rate and rhythm Respiratory: Diminished breath sounds bilaterally Extremities: +4/5 strength noted in the bilateral upper and lower extremities, 2+ pitting edema in the bilateral extremities Neurological: Patient documents that she was at [facility] years 2024 Skin: Warm, dry, intact no rashes or lesions noted Const Vital Signs: 07/09/25 16:21 07/09/25 16:41 07/09/25 16:42 Temperature 96.1 F L Temperature Source Temporal Pulse Rate 71 Respiratory Rate 18 Respiratory Effort Short of Breath Respiratory Depth Normal Respiratory Pattern Normal Blood Pressure 146/77 H Blood Pressure Mean 100 Pulse Ox 93 Oxygen Delivery Method Nasal Cannula Nasal Cannula Nasal Cannula Oxygen Flow Rate (L/min) 2 2 2 07/09/25 16:43 Temperature Temperature Source Pulse Rate Respiratory Rate Respiratory Effort Short of Breath Respiratory Depth Respiratory Pattern Blood Pressure Blood Pressure Mean Pulse Ox Oxygen Delivery Method Oxygen Flow Rate (L/min) MDM MDM MDM Narrative Medical decision making narrative: Patient is a 59-year-old female who presents to the emergency department chief complaint of increased weight gain, worsening swelling in her bilateral extremities as well as dyspnea exertion. On the differential diagnosis includesbut to ACS, pneumonia, pneumothorax, CHF exacerbation, pleural effusions. Once workup is obtained reviewed she will be reevaluated. Patient's echo from 08/10/2022 reviewed and showed ejection fraction of 55% with no wall motion abnormalities noted. Patient's CBC was reviewed and showed a white blood count of 5.4, hemoglobin 11,platelet count was noted to be 131. Patient sodium normal 143, potassium normalat 4.6, creatinine normal at 1.15. Patient's proBNP was elevated to 37 however have suspicion that this is falsely low secondary to her elevated BMI with her 2+ pitting edema. Patient's chest x-ray reviewed by myself and by radiology which showed cardiomegaly with vascular congestion and interstitial edema. Patient CT scan of her chest was reviewed by myself as [facility] and there are no large pleural effusions noted on the CT of the chest no evidence of pneumothorax no consolidations to suggest pneumonia. Patient's EKG reviewed showed sinus rhythm at a rate of 70 bpm with DE interval of 202. Patient ambulated here in the emergency department and became hypoxic on her nasal cannula to 84 percent. Patient be given 40 mg IV Lasix and case will be discussed with the hospitalist for admission for CHF exacerbation Discussed case with hospitalist Dr. Nielson who will except patient for admission. Patient notified is agreeable to plan all question concerns answered. Lab Data Labs: Laboratory Results - last 24 hr 07/09/25 16:35 WBC 5.4 RBC 3.95 L Hgb 11.0 L Hct 35.9 L MCV 90.9 MCH 27.8 MCHC 30.6 L RDW Std Deviation 50.4 H RDW Coeff of Catina 15.1 H Plt Count 131 L MPV 11.2 Immature Gran % (Auto) 0.700 Neut % (Auto) 71.8 H Lymph % (Auto) 15.5 L [place] % (Auto) 7.2 Eos % (Auto) 4.4 Baso % (Auto) 0.4 Absolute Neuts (auto) 3.9 Absolute Lymphs (auto) 0.84 Nucleated RBC % 0 Sodium 143 Potassium 4.6 Chloride 107 Carbon Dioxide 26.4 Anion Gap 10 BUN 31 H Creatinine 1.15 Estim Creat Clear Calc 66.59 Est GFR (MDRD) Non-Af 55 L BUN/Creatinine Ratio 26.6 H Glucose 225 H Calcium 9.0 NT pro BNP II 237 Radiography Diagnostic Testing: Clinical Impression(s) from Imaging Studies Chest X-Ray 07/09/25 16:53 IMPRESSION: Cardiomegaly with vascular congestion and interstitial edema. No sizable pleural effusion. Reading Location: [facility] Discharge Plan Dx/Rx/DC Orders Clinical Impression: CHF exacerbation, Acute on chronic hypoxic respiratory failure, Dyspnea on exertion, Swelling of both lower extremities Disposition Disposition: Acute Care Hospital [facility] What to do if you have Problems For any increased pain, shortness of breath, bleeding, nausea or vomiting, chestpain, or any unexpected problems, contact your Primary Care Provider. Call [facility] ([phone]) or report to the closest Emergency Room. Call 911 if necessary. 07/09/25 182 <Electronically signed by Niranjan Leblanc DO> Cosigner Signature (if applicable): CC: Dr. Sarina Adams MD ~ Signed [facility] Work Phone: 1(150) 787-657910-06-2025 History and physical note [facility] Medical Records Department [address] [place] [address] H&P Exam - Hospitalist 07/09/25 1834 MR#: [id number] Acct: [id number] Name: SAMANTHA ROMERO Rep #:[id number] : 1965 59 From: Tavo Nielson DO PCP: Dr. Sarina Adams MD Status:AD M IN Location: [facility] [id number] HPI - General General Date of Service: 07/09/25 Chief Complaint: Shortness of breath HPI Narrative SAMANTHA ROMERO, is a 59 F who presents with shortness of breath. This is a 59-year-old female who is onoxygen since having COVID 4-1/2 years ago. 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 Shehas put on roughly 15 pounds in the past few days and has had increased lower extremity edema extending up into her abdomen. She was sent to the emergency room where she had chest x-ray showed some pulmonary vascular congestion. She received 40 mg of IV furosemide. Theyattempted to ambulate her but she became hypoxic with her oxygen that she does require at home. [ ] [facility] Medical History COVID History of hypothyroidism Type 2 diabetes mellitus treated with insulin Chronic respiratory failure with hypoxia Pericardial effusion Thrombocytopenia Anemia Elevated lipase Urinary retention Obesity Former tobacco use UTI (urinary tract infection) Kidney stones Migraines Hypothyroid Hypercholesteremia Hypertension Type 2 diabetes mellitus Home Medications ?Medication ?Instructions ?Recorded ?Last Taken ?Type estradiol 0.01% (0.1 mg/gram) 3 g vaginal .COMPLEX hea lth 03/25/21 Unknown History vaginal cream maintenance fenofibrate 160 mg tablet 160 mg PO DAILY cholesterol 03/25/21 07/09/25 History vitamin E 268 mg (400 unit) capsule 400 unit PO DAILY supplement 03/25/21 07/09/25 History dicyclomine 10 mg capsule 10 mg PO ACHS abdominal pain 07/06/21 Unknown History insulin degludec 100 unit/mL (3 86 unit subcut QHS jessica betes 07/06/21 07/08/25 History mL) subcutaneous pen (Tresiba FlexTouch U-100 insulin) meloxicam 15 mg tablet 15 mg PO DAILY PRN Pain 12/2207/09/25 History rosuvastatin 10 mg tablet 10 mg PO DAILY cholesterol 1 07/08/25 History cholecalciferol (vitamin D3) 125 125 mcg PO DAILY SUPP LEMENT 05/03/24 07/09/25 History mcg (5,000 unit) capsule omeprazole 40 mg capsule,delayed 40 mg PO DAILY STOMAC H 05/03/24 07/09/25 History release dulaglutide 4.5 mg/0.5 mL 4.5 mg subcut QWEEK BLOOD JOHNSON GAR 10/27/24 07/08/25 History subcutaneous pen injector (Trulicity) empagliflozin 25 mg tablet 25 mg PO DAILY 07/09/25 Unk nown History (Jardiance) Held on 07/09/25. Instructions: Ordered furosemide 40 mg tablet 40 mg PO BID EDEMA 07/09/25 07/08/25 History gabapentin 800 mg tablet 800 mg PO TID NEUROPATHY 03/2807/09/25 History hydrocodone-acetaminophen 5-325mg 1 tab PO Q6H PRN tsering n 07/09/25 07/04/25 History 5mg-325mg insulin lispro 100 unit/mL 22 unit subcut TIDCM DIABET ES 07/09/25 Unknown History subcutaneous pen (Humalog KwikPen (U-100) Insulin) insulin lispro 100 unit/mL See Protocol subcut DAILY D IABETES 07/09/25 Unknown History subcutaneous pen (Humalog KwikPen (U-100) Insulin) levothyroxine 300 mcg tablet 300 mcg PO DAILY THYROID 07/09/25 07/08/25 History peg 400-propylene glycol 0.4 %-0.3 1 drp ophthalmic (e ye) 4X/DAY DRY 07/09/25 07/07/25 History % eye drops (Systane Ultra) EYE potassium chloride 10 mEq 10 meq PO DAILY POTASSIUM 07/09/25 History tablet,extended release Allergy/AdvReac Type Severity Reaction Status Date / Time metformin AdvReac Diarrhea Verified 07/09/25 16:21 oxycodone (From Percocet) AdvReac upset Verified 07/09/25 16:21 stomach/off balance Family History Mother Diabetes Father Diabetes Surgical History Previous section History of appendectomy Social History household members: none Smoking Status: Former smoker how long ago did patient quit smoking: Quit cigarette tobacco in 2014, 1 ppd since teenager until quit. alcohol intake: never substance use type: does not use ROS ROS Narrative Midsternal chest pain with deep respirations. Coughing up some reynolds phlegm. All review of systems were negative except as mentioned above in the history of present illness and the other review of systems. Vital Signs Vital Signs Vital Signs: 07/09/25 16:21 07/09/25 16:41 07/09/25 16:42 Temperature 35.6 C L Temperature Source Temporal Pulse Rate 71 Respiratory Rate 18 Respiratory Effort Short of Breath Respiratory Depth Normal Respiratory Pattern Normal Blood Pressure 146/77 H Blood Pressure Mean 100 Pulse Ox 93 Oxygen Delivery Method Nasal Cannula Nasal Cannula Nasal Cannula Oxygen Flow Rate (L/min) 2 2 2 07/09/25 16:43 07/09/25 16:47 07/09/25 16:50 Temperature Temperature Source Pulse Rate 73 Respiratory Rate 17 Respiratory Effort Short of Breath Respiratory Depth Respiratory Pattern Blood Pressure 132/110 H Blood Pressure Mean 117 Pulse Ox 100 Oxygen Delivery Method Oxygen Flow Rate (L/min) 07/09/25 17:00 07/09/25 17:15 07/09/25 17:30 Temperature Temperature Source Pulse Rate Respiratory Rate Respiratory Effort Respiratory Depth Respiratory Pattern Blood Pressure 157/87 H Blood Pressure Mean 107 Pulse Ox 97 97 98 Oxygen Delivery Method Oxygen Flow Rate (L/min) 07/09/25 17:45 07/09/25 18:05 07/09/25 18:06 Temperature Temperature Source Pulse Rate 76 Respiratory Rate 19 H Respiratory Effort Respiratory Depth Respiratory Pattern Blood Pressure 141/70 H Blood Pressure Mean 91 Pulse Ox 96 92 Oxygen Delivery Method Oxygen Flow Rate (L/min) 07/09/25 18:15 07/09/25 18:23 Temperature 37.2 C Temperature Source Pulse Rate 71 71 Respiratory Rate 15 19 H Respiratory Effort Respiratory Depth Respiratory Pattern Blood Pressure 181/73 H 181/73 H Blood Pressure Mean 101 109 Pulse Ox 98 99 Oxygen Delivery Method Nasal Cannula Oxygen Flow Rate (L/min) 2 Weight Weight: 121.608 kg Body Mass Index (BMI) 47.5 Physical Exam Const alert and no apparent distress Constitutional Narrative: On oxygen. No respiratory distress. No conversational dyspnea. HEENT normocephalic and head/scalp atraumatic Resp normal respiratory effort, no retractions, no use of accessory muscles and clearto auscultation bilaterally Cardio regular rate, regular rhythm, S1 normal heart sound and S2 normal heart sound GI normal to inspection, nondistended, normoactive bowel sounds, soft to palpation,non-tender and non-distended Extremity Extremity Narrative: Tight bilateral lower extremity edema. Neuro moves all extremities Sensorium / Orientation: awake and alert Speech: speech normal Psych Psych Narrative: Flat affect Results Lab / Micro Data Attestation: I reviewed the patient's lab results. 07/09/25 16:35 07/09/25 16:35 Labs: Laboratory Results - last 24 hr 07/09/25 16:35: WBC 5.4, RBC 3.95 L, Hgb 11.0 L, Hct 35.9 L, MCV 90.9, MCH 27.8,MCHC 30.6 L, RDW Std Deviation 50.4 H, RDW Coeff of Catina 15.1 H, Plt Count 131 L,MPV 11.2, Immature Gran % (Auto) 0.700,Neut % (Auto) 71.8 H, Lymph % (Auto) 15.5 L, [place] % (Auto) 7.2, Eos % (Auto) 4.4, Baso % (Auto) 0.4, Absolute Neuts (auto) 3.9, Absolute Lymphs (auto) 0.84, Nucleated RBC % 0, Sodium 143, Potassium 4.6, Chloride 107, Carbon Dioxide 26.4, Anion Gap 10, BUN 31 H, Creatinine 1.15, Estim Creat Clear Calc 66.59, Est GFR (MDRD) Non-Af 55 L, BUN/Creatinine Ratio 26.6 H, Glucose 225 H, Calcium 9.0, NT pro BNP II 237 EKG Initial EKG: Attestation: I personally reviewed and interpreted this EKG as follows: Prior EKG tracings: available for review EKG Rhythm Intrepretation: Sinus Rhythm Imaging Radiology Impression Chest X-Ray 07/09/25 16:53 IMPRESSION: Cardiomegaly with vascular congestion and interstitial edema. No sizable pleural effusion. Reading Location: [id number] Assessment & Plan Assessment/Plan (1) CHF exacerbation: PLAN: Unclear type. Weight is gone up 15 pounds in the past few days and she does have clinical evidence of volume overload and chest x-ray shows pulmonary vascular congestion. Patient received 40 mg of IV furosemide inemergency room and will continue with 40 mg IV twice daily. Additionally, patient be fluid restricted. Patient states that she drinks several bottles of fluid as well as other sugar-free beverages throughout the day. I think the patient would benefit from fluid restricted diet and further instructions about checking her weight daily. Will repeat echocardiogram as last 1 was performed in our EMR in 2021. PLAN: Plan Diabetes mellitus type 2: Insulin-dependent. Continue with basal, prandial and will add sliding scale insulin. Check an A1c. Obesity class III: Complicates care and recovery. Weight loss advised. Nutrition to provide furtherinstructions. Diabetic neuropathy: Continue with glargine, patient has prescription for hydrocodone/acetaminophenwe will continue with that. VTE prophylaxis with enoxaparin CODE STATUS: Addressed with the patient. Patient wishes to be full code. Charges/Coding Visit Charges Inpatient E&M: 21877 Init Hosp L2 07/09/25 1840 Cosigner Signature (if applicable): CC: Dr. Tavo Nielson DO; Dr. Sarina Adams MD~ Signed [facility]10-06-2025 Discharge summary [facility] Medical Records Department [address] [place] [address] Emergency Department Summary 07/09/25 MR#: [id number] Acct: [id number] Name: SAMANTHA ROMERO Rep #:[id number] : 1965 59 From: Niranjan Leblanc DO PCP: Dr. Sarina Adams MD Status:RE G ER Location: ED HPI History of Present Illness Chief Complaint: Shortness of Breath Narrative Narrative: Patient is a 59-year-old female with past medical history of hypothyroidism, type 2 diabetes, chronic respiratory failure with hypoxia chronically on 2 L nasal cannula, pericardial effusion, migraines, hypertension, hypercholesteremiawho presented to the emergency department from the pulmonary office with a chiefcomplaint of worsening shortness of breath on exertion as well as increased weight gain. According to the patient she has increased her weight by approximately 13 pounds since last week. States that there is a chance that shehas missed few doses of her Lasix. States that she had a CT scan earlier today which showed fluid in her lungs and the pulmonology office sent her immediately here to the emergency department to be further evaluated. [facility] Medical History COVID History of hypothyroidism Type 2 diabetes mellitus treated with insulin Chronic respiratory failure with hypoxia Pericardial effusion Thrombocytopenia Anemia Elevated lipase Urinary retention Obesity Former tobacco use UTI (urinary tract infection) Kidney stones Migraines Hypothyroid Hypercholesteremia Hypertension Type 2 diabetes mellitus Home Medications ?Medication ?Instructions ?Recorded ?Last Taken ?Type estradiol 0.01% (0.1 mg/gram) 3 g vaginal .COMPLEX hea lth 03/25/21 Unknown History vaginal cream maintenance fenofibrate 160 mg tablet 160 mg PO DAILY cholesterol 03/25/21 07/09/25 History vitamin E 268 mg (400 unit) capsule 400 unit PO DAILY supplement 03/25/21 07/09/25 History dicyclomine 10 mg capsule 10 mg PO ACHS abdominal pain 07/06/21 Unknown History insulin degludec 100 unit/mL (3 86 unit subcut QHS jessica betes 07/06/21 07/08/25 History mL) subcutaneous pen (Tresiba FlexTouch U-100 insulin) meloxicam 15 mg tablet 15 mg PO DAILY PRN Pain 12/2207/09/25 History rosuvastatin 10 mg tablet 10 mg PO DAILY cholesterol 1 07/08/25 History cholecalciferol (vitamin D3) 125 125 mcg PO DAILY SUPP LEMENT 05/03/24 07/09/25 History mcg (5,000 unit) capsule omeprazole 40 mg capsule,delayed 40 mg PO DAILY STOMAC H 05/03/24 07/09/25 History release dulaglutide 4.5 mg/0.5 mL 4.5 mg subcut QWEEK BLOOD JOHNSON GAR 10/27/24 07/08/25 History subcutaneous pen injector (Trulicity) empagliflozin 25 mg tablet 25 mg PO DAILY 07/09/25 John breaux History (Jardiance) Held on 07/09/25. Instructions: Ordered furosemide 40 mg tablet 40 mg PO BID EDEMA 07/09/25 07/08/25 History gabapentin 800 mg tablet 800 mg PO TID NEUROPATHY 03/2807/09/25 History hydrocodone-acetaminophen 5-325mg 1 tab PO Q6H PRN tsering n 07/09/25 07/04/25 History 5mg-325mg insulin lispro 100 unit/mL 22 unit subcut TIDCM DIABET ES 07/09/25 Unknown History subcutaneous pen (Humalog KwikPen (U-100) Insulin) insulin lispro 100 unit/mL See Protocol subcut DAILY D IABETES 07/09/25 Unknown History subcutaneous pen (Humalog KwikPen (U-100) Insulin) levothyroxine 300 mcg tablet 300 mcg PO DAILY THYROID 07/09/25 07/08/25 History peg 400-propylene glycol 0.4 %-0.3 1 drp ophthalmic (e ye) 4X/DAY DRY 07/09/25 07/07/25 History % eye drops (Systane Ultra) EYE potassium chloride 10 mEq 10 meq PO DAILY POTASSIUM 07/09/25 History tablet,extended release Allergy/AdvReac Type Severity Reaction Status Date / Time metformin AdvReac Diarrhea Verified 07/09/25 16:21 oxycodone (From Percocet) AdvReac upset Verified 07/09/25 16:21 stomach/off balance Family History Mother Diabetes Father Diabetes Surgical History Previous section History of appendectomy Social History household members: none Smoking Status: Former smoker how long ago did patient quit smoking: Quit cigarette tobacco in 2014, 1 ppd since teenager until quit. alcohol intake: never substance use type: does not use ROS ROS ED ROS Narrative Constitutional: Denies any fevers, chills, headaches Cardiovascular: Denies chest pain Respiratory: Complains of dyspnea on exertion as noted above as well as coughing Abdomen: Denies nausea vomit diarrhea : Denies urinary symptoms Neurological: Denies numbness, weakness, tingling Musculoskeletal: Denies back pain Skin: Denies any rashes or lesions EXAM Physical Exam Narrative Exam Narrative: General: Patient lying in bed rest comfortably did not appear to be acute distress Head: Atraumatic, normocephalic Eyes: PERRL bilaterally, EOMI bilateral, no conjunctival injection noted Neck: Soft, supple, trachea midline Cardiovascular: Regular rate and rhythm Respiratory: Diminished breath sounds bilaterally Extremities: +4/5 strength noted in the bilateral upper and lower extremities, 2+ pitting edema in the bilateral extremities Neurological: Patient documents that she was at [facility] years 2024 Skin: Warm, dry, intact no rashes or lesions noted Const Vital Signs: 07/09/25 16:21 07/09/25 16:41 07/09/25 16:42 Temperature 96.1 F L Temperature Source Temporal Pulse Rate 71 Respiratory Rate 18 Respiratory Effort Short of Breath Respiratory Depth Normal Respiratory Pattern Normal Blood Pressure 146/77 H Blood Pressure Mean 100 Pulse Ox 93 Oxygen Delivery Method Nasal Cannula Nasal Cannula Nasal Cannula Oxygen Flow Rate (L/min) 2 2 2 07/09/25 16:43 Temperature Temperature Source Pulse Rate Respiratory Rate Respiratory Effort Short of Breath Respiratory Depth Respiratory Pattern Blood Pressure Blood Pressure Mean Pulse Ox Oxygen Delivery Method Oxygen Flow Rate (L/min) MDM MDM MDM Narrative Medical decision making narrative: Patient is a 59-year-old female who presents to the emergency department chief complaint of increased weight gain, worsening swelling in her bilateral extremities as well as dyspnea exertion. On the differential diagnosis includesbut to ACS, pneumonia, pneumothorax, CHF exacerbation, pleural effusio ns. Once workup is obtained reviewed she will be reevaluated. Patient's echo from 08/10/2022 reviewed and showed ejection fraction of 55% with no wall motion abnormalities noted. Patient's CBC was reviewed and showed a white blood count of 5.4, hemoglobin 11,platelet count was noted to be 131. Patient sodium normal 143, potassium normalat 4.6, creatinine normal at 1.15. Patient's proBNP was elevated to 37 however have suspicion that this is falsely low secondary to her elevated BMI with her 2+ pitting edema. Patient's chest x-ray reviewed by myself and by radiology which showed cardiomegaly with vascular congestion and interstitial edema. Patient CT scan of her chest was [facility] are no large pleural effusions noted on the CT of the chest no evidence of pneumothorax no consolidations to suggest pneumonia. Patient's EKG reviewed showed sinus rhythm at a rate of 70 bpm with DE interval of 202. Patient ambulated here in the emergency department and became hypoxic on her nasal cannula to 84 percent. Patient be given 40 mg IV Lasix and case will be discussed with the hospitalist for admissionfor CHF exacerbation Discussed case with hospitalist Dr. Nielson who will except patient for admission. Patient notifiedis agreeable to plan all question concerns answered. Lab Data Labs: Laboratory Results - last 24 hr 07/09/25 16:35 WBC 5.4 RBC 3.95 L Hgb 11.0 L Hct 35.9 L MCV 90.9 MCH 27.8 MCHC 30.6 L RDW Std Deviation 50.4 H RDW Coeff of Catina 15.1 H Plt Count 131 L MPV 11.2 Immature Gran % (Auto) 0.700 Neut % (Auto) 71.8 H Lymph % (Auto) 15.5 L [place] % (Auto) 7.2 Eos % (Auto) 4.4 Baso % (Auto) 0.4 Absolute Neuts (auto) 3.9 Absolute Lymphs (auto) 0.84 Nucleated RBC % 0 Sodium 143 Potassium 4.6 Chloride 107 Carbon Dioxide 26.4 Anion Gap 10 BUN 31 H Creatinine 1.15 Estim Creat Clear Calc 66.59 Est GFR (MDRD) Non-Af 55 L BUN/Creatinine Ratio 26.6 H Glucose 225 H Calcium 9.0 NT pro BNP II 237 Radiography Diagnostic Testing: Clinical Impression(s) from Imaging Studies Chest X-Ray 07/09/25 16:53 IMPRESSION: Cardiomegaly with vascular congestion and interstitial edema. No sizable pleural effusion. Reading Location: [facility] Discharge Plan Dx/Rx/DC Orders Clinical Impression: CHF exacerbation, Acute on chronic hypoxic respiratory failure, Dyspnea on exertion, Swelling of both lower extremities Disposition Disposition: Acute Care Hospital [facility] What to do if you have Problems For any increased pain, shortness of breath, bleeding, nausea or vomiting, chestpain, or any unexpected problems, contact your Primary Care Provider. Call [facility] ([phone]) or report tothe closest Emergency Room. Call 911 if necessary. 07/09/25 1822 Cosigner Signature (if applicable): CC: Dr. Sarina Adams MD ~ Signed [facility]10-06-2025 Radiology Diagnostic study note [facility] Imaging Services [address] [place] [address] Chest PA and Lateral MR#: [id number] Acct: [id number] Name: SAMANTHA ROMERO Rep #: [id number] : 1965 F 59 From: Jaden Schofield MD PCP: Dr. Sarina Adams MD Status: RE G ER Study:Chest PA and Lateral Date of Exam: 07/09/25 Exam# [id number] Ordering Dr: Justin Leblanc DO PROCEDURE: CHEST PA AND LATERAL 07/09/2025 REASON FOR EXAM: SOB TECHNIQUE: Procedure Code: RADCXR Modality: DX Procedure: CHEST PA AND LATERAL COMPARISON: 10/27/2024 FINDINGS: Cardiomegaly. Central vascular congestion, and bilateral interstitial reticularairspace opacities likely reflect interstitial edema. No pneumothorax or sizable pleural effusion. No significant osseous abnormality. RAD/Chest PA and Lateral IMPRESSION: Cardiomegaly with vascular congestion and interstitial edema. No sizable pleural effusion. Reading Location: [id number] CC: Dr. Sarina Adams MD; Dr. Niranjan Leblanc DO ~ Solidworks Drafter: Signed [facility]10-06-2025 NoteHNO ID: [id number] Author: KAY PAREDES APRN.CNP Service: ? Author Type: Nurse Practitioner Type: Progress Notes Filed: 07/09/2025 16:30 Note Text: Nursing spoke with patient and [id number] Asiya and they plan to take her to the ER now. Kay Paredes APRN.[facility] NoteHNO ID: [id number] Author: MARY WESLEY RN Service: ? Author Type: Registered Nurse Type: Progress Notes Filed: 07/09/2025 16:12 Note Text: EKG completed without difficulty. Tracing showing NSR. EKG given to Kay Paredes APRN.ADVISORY SOFTWARE ENGINEER. Mary Wesley [facility]25 NoteHNO ID: [id number] Author: KAY PAREDES APRN.CNP Service: ? Author Type: Nurse Practitioner Type: Progress Notes Filed: 07/09/2025 16:30 Note Text: LUNG SCREENING ANNUAL VISIT PRIMARY CARE PHYSICIAN: Sarina Adams MD PULMONARY PROVIDER: Brooke CIFUENTES Results will be communicated via letter or electronic record if applicable. Visit Delivery: In Person Patient Visit Type: established Current or Ex-smoker? Quit Exam Type: annual LDCT Number of Pack Years: 30 Current smoker (=0) or Number of Years since Quit: 11.7 The patient's smoking history is similar to prior year shared decision visit. The reason for the discrepancy is NA Chief Complaint: Established patient in lung cancer screening program here for annual follow-up. Impression / Recommendations Samantha Romero presents for annual lung cancer screening annual exam and nodule evaluation. Plan: Indeterminate pulmonary nodules: Previously identified nodules appear stable and no new nodules of concern were seen on the exam. Low dose CT Scan to be repeated in one year. Plan subject to change pending final radiology report and recommendations. Nature of the lung nodule(s) and the options for further evaluation discussed in detail with patient. Samantha Romero expressed understanding and is in agreement with plan. 2. Encounter for screening for malignant neoplasm of respiratory organs I have determined that the patient is eligible for continued low dose CT screening based on age, absence of signs or symptoms of lung cancer, smoking history and total pack years. The patient was counseled on the importance of adherence to annual LDCT lung cancer screening, impact of comorbidities and ability or willingness to undergo diagnosis and treatment. The patient understands and feels comfortable with it: Yes. 3. Nicotine Dependence The patient was counseled on the importance of maintaining cigarette smoking abstinence - The patient is committed to remaining abstinent from tobacco. 4. Pleural effusion New pleural effusion and increased interstitial markings consistent with pulmonary edema. Pt is having increased edema and weight gain. Decreased activity tolerance with weakness and fatigue. Recommended ER evaluation. She has her developmentally delayed son with her and sister in law is waiting. She does not think she can go to ER today. She will try to arrange this as soon as possible. Will get outpatient BNP and ECG today. - NT PRO BNP; Future - ECG COMPLETE 5. Chest pain, unspecified type Described as midsternal chest pressure it is constant even at rest. She is in a wheelchair, but at home she is mobile with cane for short distance. No increase in symptoms with activity. It has been ongoing for a few months. Was due for cardiology appt, but it got rescheduled. Pt denies known heart failure. She reports in the past she had a little fluid in her lungs. Last cardiac testing was ECHO 06/2024-LVEF 60% - ECG B/O W INTERP (MED OFFICE) - ECG COMPLETE Kay Paredes APRN.ADVISORY SOFTWARE ENGINEER July 09, 2025 3:45 PM History of Present Illness: Samantha Romero is a 59 year old female who is presenting today for annual lung cancer screening LDCT and nodule surveillance/management. Patient has multiple nodules found on previous lung cancer screening LDCT. Last LDCT was performed on 02/02/2024 and was LUNG RADS Category 2. Previous potentially significant incidental findings on imaging: None. Patient is a former smoker with a 30 pack year history. Patient quit smoking 11 years ago at age 48. Patient will continue to be eligible for lung cancer screening. The patient does not have any symptoms or signs of lung cancer. Patient has SOB with their daily activity-normal for her. She is in a wheelchair when outside of the home. No wheezing or dyspnea. Patient denies feeling of chest tightness/congestion in the chest. Patient does not have a new or concerning cough, and denies hemoptysis. Patient does not have a chronic daily cough. Denies regular or recent fevers/chills. Patient does not have any significant unintentional weight loss. Patient denies having any respiratory infections or COVID-19 in the past few months. Increased leg edema a few weeks ago and was seen by PCP. She was not taking her diuretics twice daily. Her weight was up 23 lbs. She took her furosemide 40 mg twice a day and weight was back down on 05/29/2025, and up 2 lbs 07/03/2025. Today her weight is up 13 lbs since 07/03/2025. Her TSH recently was out of range 12/06/2024: 116, most recent check 06/06/2025 was 17.2. Last BNP was 12/06/2024 <36. Last ECHO 06/2024 LVEF 60%. Small pericardial effusion without tamponade. Last ECG 05/22/2021. Modified Medical Research [place] Dyspnea Scale (MMRC) I am too breathless to leave the house or I am breathle (more content not included)...[place] 00[address]-06-2025 Discharge summary Author Niranjan Leblanc [facility] Note Date/Time July 09, 2025 6: 22pm [facility] Medical Records Department [address] [place] [address] Emergency Department Summary 07/09/25 MR#: [id number] Acct: [id number] Name: SAMANTHA ROMERO Rep #:[id number] : 1965 59 From: Niranjan Leblanc DO PCP: Dr. Sarina Adams MD Status:RE G ER Location: ED HPI History of Present Illness Chief Complaint: Shortness of Breath Narrative Narrative: Patient is a 59-year-old female with past medical history of hypothyroidism, type 2 diabetes, chronic respiratory failure with hypoxia chronically on 2 L nasal cannula, pericardial effusion, migraines, hypertension, hypercholesteremiawho presented to the emergency department from the pulmonary office with a chiefcomplaint of worsening shortness of breath on exertion as well as increased weight gain. According to the patient she has increased her weight by approximately 13 pounds since last week. States that there is a chance that shehas missed few doses of her Lasix. States that she had a CT scan earlier today which showed fluid in her lungs and the pulmonology office sent her immediately here to the emergency department to be further evaluated. [facility] Medical History COVID History of hypothyroidism Type 2 diabetes mellitus treated with insulin Chronic respiratory failure with hypoxia Pericardial effusion Thrombocytopenia Anemia Elevated lipase Urinary retention Obesity Former tobacco use UTI (urinary tract infection) Kidney stones Migraines Hypothyroid Hypercholesteremia Hypertension Type 2 diabetes mellitus Home Medications ?Medication ?Instructions ?Recorded ?Last Taken ?Type estradiol 0.01% (0.1 mg/gram) 3 g vaginal .COMPLEX hea lth 03/25/21 Unknown History vaginal cream maintenance fenofibrate 160 mg tablet 160 mg PO DAILY cholesterol 03/25/21 07/09/25 History vitamin E 268 mg (400 unit) capsule 400 unit PO DAILY supplement 03/25/21 07/09/25 History dicyclomine 10 mg capsule 10 mg PO ACHS abdominal pain 07/06/21 Unknown History insulin degludec 100 unit/mL (3 86 unit subcut QHS jessica betes 07/06/21 07/08/25 History mL) subcutaneous pen (Tresiba FlexTouch U-100 insulin) meloxicam 15 mg tablet 15 mg PO DAILY PRN Pain 12/2207/09/25 History rosuvastatin 10 mg tablet 10 mg PO DAILY cholesterol 1 07/08/25 History cholecalciferol (vitamin D3) 125 125 mcg PO DAILY SUPP LEMENT 05/03/24 07/09/25 History mcg (5,000 unit) capsule omeprazole 40 mg capsule,delayed 40 mg PO DAILY STOMAC H 05/03/24 07/09/25 History release dulaglutide 4.5 mg/0.5 mL 4.5 mg subcut QWEEK BLOOD JOHNSON GAR 10/27/24 07/08/25 History subcutaneous pen injector (Trulicity) empagliflozin 25 mg tablet 25 mg PO DAILY 07/09/25 Unk nown History (Jardiance) Held on 07/09/25. Instructions: Ordered furosemide 40 mg tablet 40 mg PO BID EDEMA 07/09/25 07/08/25 History gabapentin 800 mg tablet 800 mg PO TID NEUROPATHY 03/2807/09/25 History hydrocodone-acetaminophen 5-325mg 1 tab PO Q6H PRN tsering n 07/09/25 07/04/25 History 5mg-325mg insulin lispro 100 unit/mL 22 unit subcut TIDCM DIABET ES 07/09/25 Unknown History subcutaneous pen (Humalog KwikPen (U-100) Insulin) insulin lispro 100 unit/mL See Protocol subcut DAILY D IABETES 07/09/25 Unknown History subcutaneous pen (Humalog KwikPen (U-100) Insulin) levothyroxine 300 mcg tablet 300 mcg PO DAILY THYROID 07/09/25 07/08/25 History peg 400-propylene glycol 0.4 %-0.3 1 drp ophthalmic (e ye) 4X/DAY DRY 07/09/25 07/07/25 History % eye drops (Systane Ultra) EYE potassium chloride 10 mEq 10 meq PO DAILY POTASSIUM 07/09/25 History tablet,extended release Allergy/AdvReac Type Severity Reaction Status Date / Time metformin AdvReac Diarrhea Verified 07/09/25 16:21 oxycodone (From Percocet) AdvReac upset Verified 07/09/25 16:21 stomach/off balance Family History Mother Diabetes Father Diabetes Surgical History Previous section History of appendectomy Social History household members: none Smoking Status: Former smoker how long ago did patient quit smoking: Quit cigarette tobacco in 2014, 1 ppd since teenager until quit. alcohol intake: never substance use type: does not use ROS ROS ED ROS Narrative Constitutional: Denies any fevers, chills, headaches Cardiovascular: Denies chest pain Respiratory: Complains of dyspnea on exertion as noted above as well as coughing Abdomen: Denies nausea vomit diarrhea : Denies urinary symptoms Neurological: Denies numbness, weakness, tingling Musculoskeletal: Denies back pain Skin: Denies any rashes or lesions EXAM Physical Exam Narrative Exam Narrative: General: Patient lying in bed rest comfortably did not appear to be acute distress Head: Atraumatic, normocephalic Eyes: PERRL bilaterally, EOMI bilateral, no conjunctival injection noted Neck: Soft, supple, trachea midline Cardiovascular: Regular rate and rhythm Respiratory: Diminished breath sounds bilaterally Extremities: +4/5 strength noted in the bilateral upper and lower extremities, 2+ pitting edema in the bilateral extremities Neurological: Patient documents that she was at [facility] years 2024 Skin: Warm, dry, intact no rashes or lesions noted Const Vital Signs: 07/09/25 16:21 07/09/25 16:41 07/09/25 16:42 Temperature 96.1 F L Temperature Source Temporal Pulse Rate 71 Respiratory Rate 18 Respiratory Effort Short of Breath Respiratory Depth Normal Respiratory Pattern Normal Blood Pressure 146/77 H Blood Pressure Mean 100 Pulse Ox 93 Oxygen Delivery Method Nasal Cannula Nasal Cannula Nasal Cannula Oxygen Flow Rate (L/min) 2 2 2 07/09/25 16:43 Temperature Temperature Source Pulse Rate Respiratory Rate Respiratory Effort Short of Breath Respiratory Depth Respiratory Pattern Blood Pressure Blood Pressure Mean Pulse Ox Oxygen Delivery Method Oxygen Flow Rate (L/min) MDM MDM MDM Narrative Medical decision making narrative: Patient is a 59-year-old female who presents to the emergency department chief complaint of increased weight gain, worsening swelling in her bilateral extremities as well as dyspnea exertion. On the differential diagnosis includesbut to ACS, pneumonia, pneumothorax, CHF exacerbation, pleural effusions. Once workup is obtained reviewed she will be reevaluated. Patient's echo from 08/10/2022 reviewed and showed ejection fraction of 55% with no wall motion abnormalities noted. Patient's CBC was reviewed and showed a white blood count of 5.4, hemoglobin 11,platelet count was noted to be 131. Patient sodium normal 143, potassium normalat 4.6, creatinine normal at 1.15. Patient's proBNP was elevated to 37 however have suspicion that this is falsely low secondary to her elevated BMI with her 2+ pitting edema. Patient's chest x-ray reviewed by myself and by radiology which showed cardiomegaly with vascular congestion and interstitial edema. Patient CT scan of her chest was reviewed by myself as this was [facility] and there are no large pleural effusions noted on the CT of the chest no evidence of pneumothorax no consolidations to suggest pneumonia. Patient's EKG reviewed showed sinus rhythm at a rate of 70 bpm with DE interval of 202. Patient ambulated here in the emergency department and became hypoxic on her nasal cannula to 84 percent. Patient be given 40 mg IV Lasix and case will be discussed with the hospitalist for admission for CHF exacerbation Discussed case with hospitalist Dr. Nielson who will except patient for admission. Patient notified is agreeable to plan all question concerns answered. Lab Data Labs: Laboratory Results - last 24 hr 07/09/25 16:35 WBC 5.4 RBC 3.95 L Hgb 11.0 L Hct 35.9 L MCV 90.9 MCH 27.8 MCHC 30.6 L RDW Std Deviation 50.4 H RDW Coeff of Catina 15.1 H Plt Count 131 L MPV 11.2 Immature Gran % (Auto) 0.700 Neut % (Auto) 71.8 H Lymph % (Auto) 15.5 L [place] % (Auto) 7.2 Eos % (Auto) 4.4 Baso % (Auto) 0.4 Absolute Neuts (auto) 3.9 Absolute Lymphs (auto) 0.84 Nucleated RBC % 0 Sodium 143 Potassium 4.6 Chloride 107 Carbon Dioxide 26.4 Anion Gap 10 BUN 31 H Creatinine 1.15 Estim Creat Clear Calc 66.59 Est GFR (MDRD) Non-Af 55 L BUN/Creatinine Ratio 26.6 H Glucose 225 H Calcium 9.0 NT pro BNP II 237 Radiography Diagnostic Testing: Clinical Impression(s) from Imaging Studies Chest X-Ray 07/09/25 16:53 IMPRESSION: Cardiomegaly with vascular congestion and interstitial edema. No sizable pleural effusion. Reading Location: [facility] Discharge Plan Dx/Rx/DC Orders Clinical Impression: CHF exacerbation, Acute on chronic hypoxic respiratory failure, Dyspnea on exertion, Swelling of both lower extremities Disposition Disposition: Acute Care Hospital [facility] What to do if you have Problems For any increased pain, shortness of breath, bleeding, nausea or vomiting, chestpain, or any unexpected problems, contact your Primary Care Provider. Call [facility] ([phone]) or report to the closest Emergency Room. Call 911 if necessary. 07/09/251821 <Electronically signed by Niranjan Leblanc DO> Cosigner Signature (if applicable): CC: Dr. Sarina Adams MD ~ Signed [facility] Work Phone: 1(694) 364-382410-06-2025 NoteHNO ID: [id number] Author: ADDI NG RT(R) Service: ? Author Type: Photo Equipment Technician Type: Progress Notes Filed: 07/09/2025 16:01 Note Text: Radiology Service Progress Note PATIENT NAME: Samantha Romero DATE OF SERVICE: July 09, 2025 TIME: 4:01 PM PATIENT IDENTITY VERIFICATION COMPLETED USING TWO (2) IDENTIFIERS: Name and Date of confirmed by patient verbally. FALL SCREENING: Has the patient had 2 falls in the last year or 1 fall with injury or currently using an Ambulatory Assistive Device (Walker, Cane, Wheelchair, Crutches, etc.)? No PATIENT GENDER DATA: Assigned female at . status: : No status: NO. PATIENT RELEVANT IMPLANT DATA REVIEWED: Yes PATIENT PRESENTS WITH AN IMPLANTABLE OR ATTACHED VENDING MACHINE FILLER: No RADIOLOGY DEPARTMENT: CT; Exam(s) Completed: Lung Screening. Anesthesia: No PERIPHERAL IV DATA: Not applicable SIGNED BY: FELISA TenaR) July 09, 2025 4:01 [facility]09-30-2025 NoteHNO ID: [id number] Author: DENISE ALVARADO APRN.QUALITY ASSURANCE PRACTICE MANAGER Service: ? Author Type: Nurse Specialist Type: Progress Notes Filed: 07/09/2025 16:34 Note Text: Subjective Patient ID: Samantha is a 59 year old female who presents for No chief complaint on file.. HPI The patient is a 59-year-old female with type 2 diabetes mellitus and hypothyroidism, presenting for evaluation of persistent bilateral lower extremity edema. Leg Edema: - Persistent leg edema, causing heaviness and difficulty ambulating. - Taking diuretics inconsist; often forgets evening dose. - Avoids taking diuretics on appointment days. - Reports decreased edema but still present, especially at night. Hoarseness: - New onset hoarseness. - Denies fever, heartburn, or reflux. - No known exposure to sick contacts or environmental irritants. - Denies tobacco use and exposure to secondhand smoke. No GERD or heartburn symptoms. Hypothyroidism: - Taking thyroid medication consistently. - Reports feeling a little bit more energetic. DM: - Blood glucose reading of 220 mg/dL this morning after consuming cheesy popcorn. - Occasionally skips meals; recent blood glucose reading of 96 mg/dL. - Reports episodes of hypoglycemia with blood glucose levels in the 60s. - Taking Trulicity weekly; awaiting refill due to backorder. - Administering Tresiba 80 units daily; refill requested. - Administering short acting insulin 20 units TID with sliding scale coverage. ing PharmD for DM managment. Chronic Back Pain: - Chronic back pain managed with Reynolds and gabapentin. - Pain exacerbated by prolonged standing, such as doing dishes. - Requests refill for Reynolds, due on the or . - Reports some relief with current pain management regimen. Hypothyroidism. TSH Date Value 03/28/2025 60.600 mIU/L 12/06/2024 116.000 mIU/L 04/10/2021 2.340 uU/mL 04/10/2020 1.210 uU/mL ) DIABETES MELLITUS: Patient's last HgA1C was Hemoglobin A1C (%) Date Value 03/28/2025 10.0 10/16/2024 9.2 04/10/2021 8.3 10/25/2020 10.3 Hemoglobin A1C (POCT) (%) Date Value 10/21/2022 11.0 ) Without report of headache, chest pain, palpitations, dyspnea, and PND. Last 14 Encounter BP Readings: Date: BP: 07/03/2025 125/76 05/29/2025 122/62 05/22/2025 118/79 03/28/2025 112/54 12/08/2024 115/67 12/06/2024 122/64 11/28/2024 125/74 10/16/2024 146/70 06/14/2024 100/60 06/08/2024 102/66 05/16/2024 140/62 02/21/2024 99/52 02/11/2024 120/60 01/03/2024 106/60 Creatinine Date Value Ref Range Status 05/29/2025 1.34 (H) 0.58 - 0.96 mg/dL Final 03/28/2025 1.42 (H) 0.58 - 0.96 mg/dL Final 12/06/2024 1.39 (H) 0.58 - 0.96 mg/dL Final 10/16/2024 1.07 (H) 0.58 - 0.96 mg/dL Final ROS Constitutional: (-) fever Ears/Nose/Mouth/Throat: (+) hoarseness Respiratory: (+) productive cough with reynolds sputum Gastrointestinal: (+) abdominal discomfort Musculoskeletal: (+) bilateral leg swelling, (+) gait difficulty, (+) back pain Objective LMP 04/27/2016 Physical Exam Vitals and nursing note reviewed. Constitutional: Appearance: Normal appearance. HENT: Head: Normocephalic. Eyes: Conjunctiva/sclera: Conjunctivae normal. Cardiovascular: Rate and Rhythm: Normal rate and regular rhythm. Heart sounds: Normal heart sounds. Pulmonary: Effort: Pulmonary effort is normal. Breath sounds: Normal breath sounds. Comments: O2 by NC Abdominal: General: Bowel sounds are normal. Palpations: Abdomen is soft. Musculoskeletal: Lumbar back: Tenderness present. Decreased range of motion. Right lower leg: Edema (2+ at ankle) present. Left lower leg: Edema (2+ at ankle) present. Skin: General: Skin is warm and dry. Neurological: Mental Status: She is alert. Mental status is at baseline. Latest Ref Rng 10/16/2024 12/06/2024 12/08/2024 03/28/2025 05/29/2025 07/03/2025 WBC 3.70 - 11.00 k/uL 5.33 4.05 7.06 RBC 3.90 - 5.20 m/uL 4.00 3.84 (L) 4.27 Hemoglobin 11.5 - 15.5 g/dL 11.4 (L) 10.9 (L) 12.0 Hematocrit 36.0 - 46.0 % 36.7 35.5 (L) 38.8 MCV 80.0 - 100.0 fL 91.8 92.4 90.9 MCH 26.0 - 34.0 pg 28.5 28.4 28.1 MCHC 30.5 - 36.0 g/dL 31.1 30.7 30.9 RDW-CV 11.5 - 15.0 % 14.3 13.6 14.6 Platelet Count 150 - 400 k/uL 133 (L) 133 (L) 171 MPV 9.0 - 12.7 fL 11.9 11.7 11.8 Neut% % 63.9 63.7 72.2 Abs Neut (ANC) 1.45 - 7.50 k/uL 3.41 2.58 5.09 Lymph% % 22.3 21.0 17.8 Abs Lymph 1.00 - 4.00 k/uL 1.19 0.85 (L) 1.26 [place]% % 8.1 11.1 5.9 Abs [place] <0.87 k/uL 0.43 0.45 0.42 Eosin% % 4.5 3.2 3.3 Abs Eosin <0.46 k/uL 0.24 0.13 0.23 Baso% % 0.4 0.5 0.4 Abs Baso <0.11 k/uL <0.03 <0.03 0.03 Immature Gran % % 0.8 0.5 0.4 IMMATURE GRANS (ABS) <0.10 k/uL 0.04 <0.03 0.03 NRBC /100 WBC 0.0 0.0 0.0 Absolute nRBC <0.01 k/uL <0.01 <0.01 <0.01 DTYPE Auto Auto Auto Color Yellow Yellow Clarity Clear Clear Glucose, Urine Negative 3+ ! Bilirubin, Urine Negative Negative Ketones, Urine Negative Negative Specific [place], Ur 1.005 (more content not included)...[facility]09-09-2025 Telephone encounter Note* Telephone Encounter - Sarina Adams MD - 06/12/2025 3:32 PM EDT The following approved medication requests have been transmitted electronically. Requested Prescriptions Signed Prescriptions Disp Refills HYDROcodone-acetaminophen (NORCO) 5-325 mg per tablet 120 tablet 0 Sig: Take 1 tablet by mouth four times a day as needed for pain for up to 30 days. Authorizing Provider: SARINA ADAMS MD PDMP website checked and validated. All prescriptions have been APPROPRIATELY filled. No suspiciousactivity was identified. 06/12/2025 by Sarina Adams MD [facility]09-09-2025 Miscellaneous Notes* Telephone Encounter - Sarina Adams MD - 06/12/2025 3:32 PM EDT The following approved medication requests have been transmitted electronically. Requested Prescriptions Signed Prescriptions Disp Refills HYDROcodone-acetaminophen (NORCO) 5-325 mg per tablet 120 tablet 0 Sig: Take 1 tablet by mouth four times a day as needed for pain for up to 30 days. Authorizing Provider: SARINA ADAMS MD PDMP website checked and validated. All prescriptions have been APPROPRIATELY filled. No suspiciousactivity was identified. 06/12/2025 by Sarina Adams MD * Telephone Encounter - Lucero Newell - 06/12/2025 10:32 AM EDT Patient calling again for status update on medication being sent to pharmacy. Patient states she is not feeling well and has been out of medication. Please call patient to notify when prescription has been sent to pharmacy. * Telephone Encounter - Sophie Wolfe - 06/11/2025 12:33 PM EDT Patient calling to check the status of refill. Please return call to patient when the medication refill has been called to pharmacy. PHARMACY: [facility]/[place]. * Telephone Encounter - Vanessa Li RN - 06/07/2025 12:13 PM EDT The patient has been identified by name and date of : Yes Caregiver verified no other encounters exist for this prescription request: Yes Caregiver confirmed with patient/requestor that no other refills are due, in the near future, with this provider at this time: Yes The last office visit in the department: 05/29/2025 Does the patient have a future office visit with this provider/department: Yes 07/03/2025 Requested Prescriptions Pending Prescriptions Disp Refills HYDROcodone-acetaminophen (NORCO) 5-325 mg per tablet 120 tablet 0 Sig: Take 1 tablet by mouth four times a day as needed for pain for up to 30 days. Vanessa Li RN [facility] Telephone encounter Note * Telephone Encounter - Lucero Newell - 06/12/2025 10:32 AM EDT Patient calling again for status update on medication being sent to pharmacy. Patient states she is not feeling well and has been out of medication. Please call patient to notify when prescription has been sent to pharmacy. [facility]09-08-2025 Telephone encounter Note* Telephone Encounter - Jaylyn Vazquez LPN - 06/11/2025 5:52 PM EDT Ann-Marie notified, new RX sent to /[place], 05/02/2025. Will check with pharmacy. Jaylyn Vazquez LPN [facility]09-08-2025 Miscellaneous Notes* Telephone Encounter - Jaylyn Vazquez LPN - 06/11/2025 5:52 PM EDT Ann-Marie notified, new RX sent to [facility]/[place], 05/02/2025. Will check with pharmacy. Jaylyn Vazquez LPN * Telephone Encounter - Sophie Wolfe - 06/11/2025 3:30 PM EDT Prescription Refill Information The patient has been identified by name and date of : Yes Caregiver verified no other encounters exist for this prescription request: Yes Caregiver confirmed with patient/requestor that no other refills are due, in the near future, with this provider at this time: Yes The last office visit in the department: 05-29-25 Does the patient have a future office visit with this provider/department: Yes Requested Prescriptions Pending Prescriptions Disp Refills blood sugar diagnostic (BLOOD GLUCOSE TEST) test strip 50 strip 11 Sig: Test blood sugar(s) 4 times daily. Dx: Other DM Code E11.40 Insulin: Yes Sophie Wolfe June 11, 2025 3:30 PM documented in [facility] Telephone encounter Note * Telephone Encounter - Sophie Wolfe - 06/11/2025 3:30 PM EDT Prescription Refill Information The patient has been identified by name and date of : Yes Caregiver verified no other encounters exist for this prescription request: Yes Caregiver confirmed with patient/requestor that no other refills are due, in the near future, with this provider at this time: Yes The last office visit in the department: 05-29-25 Does the patient have a future office visit with this provider/department: Yes Requested Prescriptions Pending Prescriptions Disp Refills blood sugar diagnostic (BLOOD GLUCOSE TEST) test strip 50 strip 11 Sig: Test blood sugar(s) 4 times daily. Dx: Other DM Code E11.40 Insulin: Yes Sophie Wolfe June 11, 2025 3:30 PM [facility]09-08-2025 Telephone encounter Note* Telephone Encounter - Sophie Wolfe - 06/11/2025 12:33 PM EDT Patient calling to check the status of refill. Please return call to patient when the medication refill has been called to pharmacy. PHARMACY: [facility]/[place]. [facility]09-04-2025 Telephone encounter Note* Telephone Encounter - Vanessa Li RN - 06/07/2025 12:13 PM EDT The patient has been identified by name and date of : Yes Caregiver verified no other encounters exist for this prescription request: Yes Caregiver confirmed with patient/requestor that no other refills are due, in the near future, with this provider at this time: Yes The last office visit in the department: 05/29/2025 Does the patient have a future office visit with this provider/department: Yes 07/03/2025 Requested Prescriptions Pending Prescriptions Disp Refills HYDROcodone-acetaminophen (NORCO) 5-325 mg per tablet 120 tablet 0 Sig: Take 1 tablet by mouth four times a day as needed for pain for up to 30 days. Vanessa Li RN [facility]08-26-2025 History of Present illness Narrative* Denise Alvarado APRN.QUALITY ASSURANCE PRACTICE MANAGER - 05/29/2025 3:00 PM EDT Subjective Patient ID: Samantha is a 59 year old female who presents for Follow Up. The patient is a 59-year-old female with diabetes mellitus, hypothyroidism, hyperlipidemia, and leno, presenting for evaluation of lower extremity edema and diuretic management. HPI CHF: - Samantha Romero has shown significant improvement in symptoms since the last visit. - Notable weight loss of 23 lbs, from 271 lbs to 248 lbs. - Samantha reports easier breathing and less heaviness in legs. - Taking diuretic BID; Samantha reports increased urination. - Still experiences fatigue and weakness. - Recent episode of diarrhea with an accident this morning. - Persistent edema in feet and toes, causing discomfort when walking. Hypothyroidism: - Recent lab work indicated poor control of thyroid levels. - Taking thyroid medication, but Samantha is unsure about timing with other medications. - Samantha inquires about taking thyroid medication at bedtime with other medications (gabapentin, cyproheptadine, colestipol). Diabetes: - Using a continuous glucose monitor and Samantha expresses satisfaction with it. - No current appointment with an turkey cleaner. - Taking diabetes medication; unclear adherence Hypothyroidism. She is doing well on her current dose of Synthroid. Noting fatigue and weight gain. TSH Date Value 03/28/2025 60.600 mIU/L 12/06/2024 116.000 mIU/L 04/10/2021 2.340 uU/mL 04/10/2020 1.210 uU/mL ) DIABETES MELLITUS: Patient's last HgA1C was Hemoglobin A1C (%) Date Value 03/28/2025 10.0 10/16/2024 9.2 04/10/2021 8.3 10/25/2020 10.3 Hemoglobin A1C (POCT) (%) Date Value 10/21/2022 11.0 ) Without report of headache, chest pain, palpitations, dyspnea, and PND. Last 3 Encounter BP Readings: Date: BP: 05/22/2025 118/79 03/28/2025 112/54 12/08/2024 115/67 ROS Constitutional: (+) unintentional weight loss, (+) fatigue, (+) weakness Cardiovascular: (+) bilateral pedal edema Gastrointestinal: (+) diarrhea Genitourinary: (+) polyuria Objective BP 122/62 Pulse 76 Resp 16 Wt 112.6 kg (248 lb 3.8 oz) LMP 04/27/2016 SpO2 98% BMI 42.12 kg/m Physical Exam Vitals and nursing note reviewed. Constitutional: Appearance: Normal appearance. HENT: Head: Normocephalic. Eyes: Conjunctiva/sclera: Conjunctivae normal. Cardiovascular: Rate and Rhythm: Normal rate and regular rhythm. Heart sounds: Normal heart sounds. Pulmonary: Effort: Pulmonary effort is normal. Breath sounds: Normal breath sounds. Abdominal: General: Bowel sounds are normal. Palpations: Abdomen is soft. Musculoskeletal: Right lower leg: Edema (2+ at ankle) present. Left lower leg: Edema (2+ at ankle) present. Skin: General: Skin is warm and dry. Neurological: Mental Status: She is alert. Mental status is at baseline. Latest Ref Rng 12/06/2024 03/28/2025 WBC 3.70 - 11.00 k/uL 5.33 4.05 RBC 3.90 - 5.20 m/uL 4.00 3.84 (L) Hemoglobin 11.5 - 15.5 g/dL 11.4 (L) 10.9 (L) Hematocrit 36.0 - 46.0 % 36.7 35.5 (L) MCV 80.0 - 100.0 fL 91.8 92.4 MCH 26.0 - 34.0 pg 28.5 28.4 MCHC 30.5 - 36.0 g/dL 31.1 30.7 RDW-CV 11.5 - 15.0 % 14.3 13.6 Platelet Count 150 - 400 k/uL 133 (L) 133 (L) MPV 9.0 - 12.7 fL 11.9 11.7 Neut% % 63.9 63.7 Abs Neut (ANC) 1.45 - 7.50 k/uL 3.41 2.58 Lymph% % 22.3 21.0 Abs Lymph 1.00 - 4.00 k/uL 1.19 0.85 (L) [place]% % 8.1 11.1 Abs [place] <0.87 k/uL 0.43 0.45 Eosin% % 4.5 3.2 Abs Eosin <0.46 k/uL 0.24 0.13 Baso% % 0.4 0.5 Abs Baso <0.11 k/uL <0.03 <0.03 Immature Gran % % 0.8 0.5 IMMATURE GRANS (ABS) <0.10 k/uL 0.04 <0.03 NRBC /100 WBC 0.0 0.0 Absolute nRBC <0.01 k/uL <0.01 <0.01 DTYPE Auto Auto Protein, Total 6.3 - 8.0 g/dL 6.4 6.6 Albumin 3.9 - 4.9 g/dL 3.5 (L) 3.7 (L) Calcium 8.5 - 10.2 mg/dL 8.9 9.1 Bilirubin, Total 0.2 - 1.3 mg/dL <0.2 (L) 0.2 Alkaline Phosphatase 34 - 123 U/L 76 65 AST 13 - 35 U/L 27 23 ALT 7 - 38 U/L 30 20 Glucose 74 - 99 mg/dL 145 (H) 266 (H) BUN 7 - 21 mg/dL 41 (H) 35 (H) Creatinine 0.58 - 0.96 mg/dL 1.39 (H) 1.42 (H) Sodium 136 - 144 mmol/L 139 140 Potassium 3.7 - 5.1 mmol/L 3.9 3.9 Chloride 98 - 107 mmol/L 100 100 CO2 22 - 30 mmol/L 33 (H) 27 Anion Gap 8 - 15 mmol/L 6 (L) 13 eGFR >=60 mL/min/1.73m 44 (L) 43 (L) Cholesterol, Total <200 mg/dL 209 (H) Triglyceride <150 mg/dL 224 (H) HDL Cholesterol >39 mg/dL 61 Non HDL Cholesterol <130 mg/dL 148 (H) Fasting Time hrs 12 VLDL Cholesterol <30 mg/dL 45 (H) TC:HDL Ratio <5.10 3.43 LDL Cholesterol, Calculated <100 mg/dL 103 (H) LDL:HDL Ratio <2.54 1.69 Hemoglobin A1C 4.3 - 5.6 % 10.0 (H) Estimated Average Glucose mg/dL 240 NT Pro BNP <125 pg/mL <36 TSH 0.270 - 4.200 mIU/L 116.000 (H) 60.600 (H) Free T3 2.3 - 4.1 pg/mL 1.5 (L) Free T4 0.9 - 1.7 ng/dL 0.7 (L) 1. Edema, unspecified type (R60.9) 2. Weight gain (R63.5) - Significant improvement in edema and weight reduction (23 lbs) since last visit with diuretic therapy. - Continue diuretic therapy BID as prescribed. - Provided education on the use of the booster diuretic zaroxlyn; discussed that it is not intended for long-term use but can be used intermittently if edema recurs. - Refill provided 3. Acquired hypothyroidism (E03.9) - Previously poorly controlled thyroid function; may be contributing to fatigue and weakness. - Ordered thyroid labs to assess current control. - Reviewed importance of consistent thyroid medication adherence; advised patient to take medication at night with other medications if that improves adherence. 4. 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) (E11.3319) - Ordered HbA1c and metabolic panel. - Refill provided for Trulicity. - Patient is using a continuous glucose monitor and reports satisfaction with its use. - Follow-up in 1 month to recheck labs and overall management, then 3 and 6 months thereafter. 5. Encounter for immunization (Z23) declines today labs today 1 mo recheck Denise Alvarado APRN.CNS then Q 3 mos until feeling improved / stabilized. Denise Alvarado APRN.CNS Medical Decision Making: Problems: Moderate: 2+ stable chronic illnesses Risk: Moderate: Drug management Medical Decision Making Level: 4 - Moderate documented in [facility] NoteHNO ID: [id number] Author: DENISE AVLARADO APRN.ROLF Service: ? Author Type: Nurse Specialist Type: Progress Notes Filed: 05/29/2025 15:36 Note Text: Subjective Patient ID: Samantha is a 59 year old female who presents for Follow Up. The patient is a 59-year-old female with diabetes mellitus, hypothyroidism, hyperlipidemia, and leno, presenting for evaluation of lower extremity edema and diuretic management. HPI CHF: - Samantha Romero has shown significant improvement in symptoms since the last visit. - Notable weight loss of 23 lbs, from 271 lbs to 248 lbs. - Samantha reports easier breathing and less heaviness in legs. - Taking diuretic BID; Samantha reports increased urination. - Still experiences fatigue and weakness. - Recent episode of diarrhea with an accident this morning. - Persistent edema in feet and toes, causing discomfort when walking. Hypothyroidism: - Recent lab work indicated poor control of thyroid levels. - Taking thyroid medication, but Samantha is unsure about timing with other medications. - Samantha inquires about taking thyroid medication at bedtime with other medications (gabapentin, cyproheptadine, colestipol). Diabetes: - Using a continuous glucose monitor and [place] expresses satisfaction with it. - No current appointment with an turkey cleaner. - Taking diabetes medication; unclear adherence Hypothyroidism. She is doing well on her current dose of Synthroid. Noting fatigue and weight gain. TSH Date Value 03/28/2025 60.600 mIU/L 12/06/2024 116.000 mIU/L 04/10/2021 2.340 uU/mL 04/10/2020 1.210 uU/mL ) DIABETES MELLITUS: Patient's last HgA1C was Hemoglobin A1C (%) Date Value 03/28/2025 10.0 10/16/2024 9.2 04/10/2021 8.3 10/25/2020 10.3 Hemoglobin A1C (POCT) (%) Date Value 10/21/2022 11.0 ) Without report of headache, chest pain, palpitations, dyspnea, and PND. Last 3 Encounter BP Readings: Date: BP: 05/22/2025 118/79 03/28/2025 112/54 12/08/2024 115/67 ROS Constitutional: (+) unintentional weight loss, (+) fatigue, (+) weakness Cardiovascular: (+) bilateral pedal edema Gastrointestinal: (+) diarrhea Genitourinary: (+) polyuria Objective BP 122/62 Pulse 76 Resp 16 Wt 112.6 kg (248 lb 3.8 oz) LMP 04/27/2016 SpO2 98% BMI 42.12 kg/m? Physical Exam Vitals and nursing note reviewed. Constitutional: Appearance: Normal appearance. HENT: Head: Normocephalic. Eyes: Conjunctiva/sclera: Conjunctivae normal. Cardiovascular: Rate and Rhythm: Normal rate and regular rhythm. Heart sounds: Normal heart sounds. Pulmonary: Effort: Pulmonary effort is normal. Breath sounds: Normal breath sounds. Abdominal: General: Bowel sounds are normal. Palpations: Abdomen is soft. Musculoskeletal: Right lower leg: Edema (2+ at ankle) present. Left lower leg: Edema (2+ at ankle) present. Skin: General: Skin is warm and dry. Neurological: Mental Status: She is alert. Mental status is at baseline. Latest Ref Rng 12/06/2024 03/28/2025 WBC 3.70 - 11.00 k/uL 5.33 4.05 RBC 3.90 - 5.20 m/uL 4.00 3.84 (L) Hemoglobin 11.5 - 15.5 g/dL 11.4 (L) 10.9 (L) Hematocrit 36.0 - 46.0 % 36.7 35.5 (L) MCV 80.0 - 100.0 fL 91.8 92.4 MCH 26.0 - 34.0 pg 28.5 28.4 MCHC 30.5 - 36.0 g/dL 31.1 30.7 RDW-CV 11.5 - 15.0 % 14.3 13.6 Platelet Count 150 - 400 k/uL 133 (L) 133 (L) MPV 9.0 - 12.7 fL 11.9 11.7 Neut% % 63.9 63.7 Abs Neut (ANC) 1.45 - 7.50 k/uL 3.41 2.58 Lymph% % 22.3 21.0 Abs Lymph 1.00 - 4.00 k/uL 1.19 0.85 (L) [place]% % 8.1 11.1 Abs [place] <0.87 k/uL 0.43 0.45 Eosin% % 4.5 3.2 Abs Eosin <0.46 k/uL 0.24 0.13 Baso% % 0.4 0.5 Abs Baso <0.11 k/uL <0.03 <0.03 Immature Gran % % 0.8 0.5 IMMATURE GRANS (ABS) <0.10 k/uL 0.04 <0.03 NRBC /100 WBC 0.0 0.0 Absolute nRBC <0.01 k/uL <0.01 <0.01 DTYPE Auto Auto Protein, Total 6.3 - 8.0 g/dL 6.4 6.6 Albumin 3.9 - 4.9 g/dL 3.5 (L) 3.7 (L) Calcium 8.5 - 10.2 mg/dL 8.9 9.1 Bilirubin, Total 0.2 - 1.3 mg/dL <0.2 (L) 0.2 Alkaline Phosphatase 34 - 123 U/L 76 65 AST 13 - 35 U/L 27 23 ALT 7 - 38 U/L 30 20 Glucose 74 - 99 mg/dL 145 (H) 266 (H) BUN 7 - 21 mg/dL 41 (H) 35 (H) Creatinine 0.58 - 0.96 mg/dL 1.39 (H) 1.42 (H) Sodium 136 - 144 mmol/L 139 140 Potassium 3.7 - 5.1 mmol/L 3.9 3.9 Chloride 98 - 107 mmol/L 100 100 CO2 22 - 30 mmol/L 33 (H) 27 Anion Gap 8 - 15 mmol/L 6 (L) 13 eGFR >=60 mL/min/1.73m? 44 (L) 43 (L) Cholesterol, Total <200 mg/dL 209 (H) Triglyceride <150 mg/dL 224 (H) HDL Cholesterol >39 mg/dL 61 Non HDL Cholesterol <130 mg/dL 148 (H) Fasting Time hrs 12 VLDL Cholesterol <30 mg/dL 45 (H) TC:HDL Ratio <5.10 3.43 LDL Cholesterol, Calculated <100 mg/dL 103 (H) LDL:HDL Ratio <2.54 1.69 Hemoglobin A1C 4.3 - 5.6 % 10.0 (H) Estimated Average Glucose mg/dL 240 NT Pro BNP <125 pg/mL <36 TSH 0.270 - 4.200 mIU/L 116.000 (H) 60.600 (H) Free T3 2.3 - 4.1 pg/mL 1.5 (L) Free T4 0.9 - 1.7 ng/dL 0.7 (L) 1. Edema, unspecified type (R60.9) 2. Tommy (more content not included)...[facility]08-19-2025 History of Present illness Narrative* Denise Alvarado, ODILON.QUALITY ASSURANCE PRACTICE MANAGER - 05/22/2025 3:00 PM EDT Subjective Patient ID: Samantha is a 59 year old female who presents for No chief complaint on file.. HPI Presents for edema and weight gain. Samantha Romero is a 59-year-old female with a history of hypothyroidism and diabetes, presenting for evaluation of generalized edema and weight gain. Edema and Weight Gain: - Generalized edema and weight gain since March. - Weight increased from 256 lbs in March to 271 lbs currently. - Edema onset was sudden over the last 2.5 weeks. - Edema in extremities causing difficulty with mobility and ADLs. - Taking Lasix BID; missed a few doses but has some remaining. No recent refill noted in review of outside medications - Experiencing increased dyspnea. - Scheduled to see a corporate vp advertising & online and solar installation foreman in July. Hypothyroidism: - Taking 300 mcg of thyroid medication; has missed doses. - Samantha reports persistent fatigue. Diabetes: - Taking diabetes medication; unclear adherenceadherence not specified. Hypothyroidism. She is doing well on her current dose of Synthroid. Noting fatigue and weight gain. TSH Date Value 03/28/2025 60.600 mIU/L 12/06/2024 116.000 mIU/L 04/10/2021 2.340 uU/mL 04/10/2020 1.210 uU/mL ) DIABETES MELLITUS: Patient's last HgA1C was Hemoglobin A1C (%) Date Value 03/28/2025 10.0 10/16/2024 9.2 04/10/2021 8.3 10/25/2020 10.3 Hemoglobin A1C (POCT) (%) Date Value 10/21/2022 11.0 ) Without report of headache, chest pain, palpitations, dyspnea, and PND. Last 3 Encounter BP Readings: Date: BP: 05/22/2025 118/79 03/28/2025 112/54 12/08/2024 115/67 ROS Constitutional: (+) weight gain, (+) fatigue Respiratory: (+) shortness of breath Musculoskeletal: (+) generalized swelling, (+) bilateral leg swelling, (+) hand swelling, (+) foot swelling Objective LMP 04/27/2016 Physical Exam Vitals and nursing note reviewed. Constitutional: Appearance: Normal appearance. HENT: Head: Normocephalic. Eyes: Conjunctiva/sclera: Conjunctivae normal. Cardiovascular: Rate and Rhythm: Normal rate and regular rhythm. Heart sounds: Normal heart sounds. Pulmonary: Effort: Pulmonary effort is normal. Breath sounds: Normal breath sounds. Abdominal: General: Bowel sounds are normal. Palpations: Abdomen is soft. Musculoskeletal: Right lower leg: Edema (2+ to thigh) present. Left lower leg: Edema (2+ to thigh) present. Skin: General: Skin is warm and dry. Neurological: Mental Status: She is alert. Mental status is at baseline. Latest Ref Rng 12/06/2024 03/28/2025 WBC 3.70 - 11.00 k/uL 5.33 4.05 RBC 3.90 - 5.20 m/uL 4.00 3.84 (L) Hemoglobin 11.5 - 15.5 g/dL 11.4 (L) 10.9 (L) Hematocrit 36.0 - 46.0 % 36.7 35.5 (L) MCV 80.0 - 100.0 fL 91.8 92.4 MCH 26.0 - 34.0 pg 28.5 28.4 MCHC 30.5 - 36.0 g/dL 31.1 30.7 RDW-CV 11.5 - 15.0 % 14.3 13.6 Platelet Count 150 - 400 k/uL 133 (L) 133 (L) MPV 9.0 - 12.7 fL 11.9 11.7 Neut% % 63.9 63.7 Abs Neut (ANC) 1.45 - 7.50 k/uL 3.41 2.58 Lymph% % 22.3 21.0 Abs Lymph 1.00 - 4.00 k/uL 1.19 0.85 (L) [place]% % 8.1 11.1 Abs [place] <0.87 k/uL 0.43 0.45 Eosin% % 4.5 3.2 Abs Eosin <0.46 k/uL 0.24 0.13 Baso% % 0.4 0.5 Abs Baso <0.11 k/uL <0.03 <0.03 Immature Gran % % 0.8 0.5 IMMATURE GRANS (ABS) <0.10 k/uL 0.04 <0.03 NRBC /100 WBC 0.0 0.0 Absolute nRBC <0.01 k/uL <0.01 <0.01 DTYPE Auto Auto Protein, Total 6.3 - 8.0 g/dL 6.4 6.6 Albumin 3.9 - 4.9 g/dL 3.5 (L) 3.7 (L) Calcium 8.5 - 10.2 mg/dL 8.9 9.1 Bilirubin, Total 0.2 - 1.3 mg/dL <0.2 (L) 0.2 Alkaline Phosphatase 34 - 123 U/L 76 65 AST 13 - 35 U/L 27 23 ALT 7 - 38 U/L 30 20 Glucose 74 - 99 mg/dL 145 (H) 266 (H) BUN 7 - 21 mg/dL 41 (H) 35 (H) Creatinine 0.58 - 0.96 mg/dL 1.39 (H) 1.42 (H) Sodium 136 - 144 mmol/L 139 140 Potassium 3.7 - 5.1 mmol/L 3.9 3.9 Chloride 98 - 107 mmol/L 100 100 CO2 22 - 30 mmol/L 33 (H) 27 Anion Gap 8 - 15 mmol/L 6 (L) 13 eGFR >=60 mL/min/1.73m 44 (L) 43 (L) Cholesterol, Total <200 mg/dL 209 (H) Triglyceride <150 mg/dL 224 (H) HDL Cholesterol >39 mg/dL 61 Non HDL Cholesterol <130 mg/dL 148 (H) Fasting Time hrs 12 VLDL Cholesterol <30 mg/dL 45 (H) TC:HDL Ratio <5.10 3.43 LDL Cholesterol, Calculated <100 mg/dL 103 (H) LDL:HDL Ratio <2.54 1.69 Hemoglobin A1C 4.3 - 5.6 % 10.0 (H) Estimated Average Glucose mg/dL 240 NT Pro BNP <125 pg/mL <36 TSH 0.270 - 4.200 mIU/L 116.000 (H) 60.600 (H) Free T3 2.3 - 4.1 pg/mL 1.5 (L) Free T4 0.9 - 1.7 ng/dL 0.7 (L) 1. Weight gain (R63.5) 2. Edema, unspecified type (R60.9) - Acute weight gain of 24 lbs since March 28 with generalized edema; taking Lasix BID but has missed some doses. - Start Zaroxolyn to be taken with the first daily dose of Lasix to enhance diuresis. - Educated on importance of strict adherence to diuretic regimen; instructed to take Lasix BID (morning and around lunchtime) and Zaroxolyn with first dose; advised to stay near toilet after dosing. - Advised to seek hospital care if symptoms worsen or become unmanageable at home. - Follow-up in 1 week to reassess edema and weight. 3. Acquired hypothyroidism (E03.9) - Nonadherence to thyroid medication contributing to weight gain and edema. - Reinforced importance of daily thyroid medication adherence. - Will verify correct thyroid medication dose. 4. Screening for diabetic retinopathy (Z13.5) 5. Screening for cervical cancer (Z12.4) 6. Screening for colon cancer (Z12.11) 7. Malignant neoplasm of thymus (HCC) (C37) 8. Myasthenia gravis (HCC) (G70.00) 9. Platelet disorder (HCC) (D69.1) 10. Hypokalemia (E87.6) She has gained 20 pounds since last seen, appears nonadherence with furosemide. Will discuss other chronic issues at next visit if feeling improved. If she is not feeling improved we will discuss at a later date and refer her to the ER for treatment as needed. She has uncontrolled hypothyroidism appears she was on a medication for some period of time. Recommend resuming at 300 mcg daily. Check TSH and T4 in 6 weeks. 6 week follow up OV. May refill metolazone if needed however BUN and creatinine were increased. Lower extremity edema is reduced currently but present. She is managing her own medications in a pill dispenser. Consider pill pack or similar at upcoming visit. Denise Alvarado APRN.QUALITY ASSURANCE PRACTICE MANAGER Medical Decision Making: Problems: Moderate: 2+ stable chronic illnesses and 1+ chronic illnesses with change Data: Unique test result(s) reviewed: 3+ Risk: Moderate: Drug management Medical Decision Making Level: 4 - Moderate documented in this encounterK[facility]19-[facility]25 NoteHNO ID: [id number] Author: DENISE ALVARADO APRN.QUALITY ASSURANCE PRACTICE MANAGER Service: ? Author Type: Nurse Specialist Type: Progress Notes Filed: 05/22/2025 15:42 Note Text: Subjective Patient ID: Samantha is a 59 year old female who presents for No chief complaint on file.. HPI Presents for edema and weight gain. Samantha Romero is a 59-year-old female with a history of hypothyroidism and diabetes, presenting for evaluation of generalized edema and weight gain. Edema and Weight Gain: - Generalized edema and weight gain since March. - Weight increased from 256 lbs in March to 271 lbs currently. - Edema onset was sudden over the last 2.5 weeks. - Edema in extremities causing difficulty with mobility and ADLs. - Taking Lasix BID; missed a few doses but has some remaining. No recent refill noted in review of outside medications - Experiencing increased dyspnea. - Scheduled to see a corporate vp advertising & online and solar installation foreman in July. Hypothyroidism: - Taking 300 mcg of thyroid medication; has missed doses. - [place] reports persistent fatigue. Diabetes: - Taking diabetes medication; unclear adherenceadherence not specified. Hypothyroidism. She is doing well on her current dose of Synthroid. Noting fatigue and weight gain. TSH Date Value 03/28/2025 60.600 mIU/L 12/06/2024 116.000 mIU/L 04/10/2021 2.340 uU/mL 04/10/2020 1.210 uU/mL ) DIABETES MELLITUS: Patient's last HgA1C was Hemoglobin A1C (%) Date Value 03/28/2025 10.0 10/16/2024 9.2 04/10/2021 8.3 10/25/2020 10.3 Hemoglobin A1C (POCT) (%) Date Value 10/21/2022 11.0 ) Without report of headache, chest pain, palpitations, dyspnea, and PND. Last 3 Encounter BP Readings: Date: BP: 05/22/2025 118/79 03/28/2025 112/54 12/08/2024 115/67 ROS Constitutional: (+) weight gain, (+) fatigue Respiratory: (+) shortness of breath Musculoskeletal: (+) generalized swelling, (+) bilateral leg swelling, (+) hand swelling, (+) foot swelling Objective LMP 04/27/2016 Physical Exam Vitals and nursing note reviewed. Constitutional: Appearance: Normal appearance. HENT: Head: Normocephalic. Eyes: Conjunctiva/sclera: Conjunctivae normal. Cardiovascular: Rate and Rhythm: Normal rate and regular rhythm. Heart sounds: Normal heart sounds. Pulmonary: Effort: Pulmonary effort is normal. Breath sounds: Normal breath sounds. Abdominal: General: Bowel sounds are normal. Palpations: Abdomen is soft. Musculoskeletal: Right lower leg: Edema (2+ to thigh) present. Left lower leg: Edema (2+ to thigh) present. Skin: General: Skin is warm and dry. Neurological: Mental Status: She is alert. Mental status is at baseline. Latest Ref Rng 12/06/2024 03/28/2025 WBC 3.70 - 11.00 k/uL 5.33 4.05 RBC 3.90 - 5.20 m/uL 4.00 3.84 (L) Hemoglobin 11.5 - 15.5 g/dL 11.4 (L) 10.9 (L) Hematocrit 36.0 - 46.0 % 36.7 35.5 (L) MCV 80.0 - 100.0 fL 91.8 92.4 MCH 26.0 - 34.0 pg 28.5 28.4 MCHC 30.5 - 36.0 g/dL 31.1 30.7 RDW-CV 11.5 - 15.0 % 14.3 13.6 Platelet Count 150 - 400 k/uL 133 (L) 133 (L) MPV 9.0 - 12.7 fL 11.9 11.7 Neut% % 63.9 63.7 Abs Neut (ANC) 1.45 - 7.50 k/uL 3.41 2.58 Lymph% % 22.3 21.0 Abs Lymph 1.00 - 4.00 k/uL 1.19 0.85 (L) [place]% % 8.1 11.1 Abs [place] <0.87 k/uL 0.43 0.45 Eosin% % 4.5 3.2 Abs Eosin <0.46 k/uL 0.24 0.13 Baso% % 0.4 0.5 Abs Baso <0.11 k/uL <0.03 <0.03 Immature Gran % % 0.8 0.5 IMMATURE GRANS (ABS) <0.10 k/uL 0.04 <0.03 NRBC /100 WBC 0.0 0.0 Absolute nRBC <0.01 k/uL <0.01 <0.01 DTYPE Auto Auto Protein, Total 6.3 - 8.0 g/dL 6.4 6.6 Albumin 3.9 - 4.9 g/dL 3.5 (L) 3.7 (L) Calcium 8.5 - 10.2 mg/dL 8.9 9.1 Bilirubin, Total 0.2 - 1.3 mg/dL <0.2 (L) 0.2 Alkaline Phosphatase 34 - 123 U/L 76 65 AST 13 - 35 U/L 27 23 ALT 7 - 38 U/L 30 20 Glucose 74 - 99 mg/dL 145 (H) 266 (H) BUN 7 - 21 mg/dL 41 (H) 35 (H) Creatinine 0.58 - 0.96 mg/dL 1.39 (H) 1.42 (H) Sodium 136 - 144 mmol/L 139 140 Potassium 3.7 - 5.1 mmol/L 3.9 3.9 Chloride 98 - 107 mmol/L 100 100 CO2 22 - 30 mmol/L 33 (H) 27 Anion Gap 8 - 15 mmol/L 6 (L) 13 eGFR >=60 mL/min/1.73m? 44 (L) 43 (L) Cholesterol, Total <200 mg/dL 209 (H) Triglyceride <150 mg/dL 224 (H) HDL Cholesterol >39 mg/dL 61 Non HDL Cholesterol <130 mg/dL 148 (H) Fasting Time hrs 12 VLDL Cholesterol <30 mg/dL 45 (H) TC:HDL Ratio <5.10 3.43 LDL Cholesterol, Calculated <100 mg/dL 103 (H) LDL:HDL Ratio <2.54 1.69 Hemoglobin A1C 4.3 - 5.6 % 10.0 (H) Estimated Average Glucose mg/dL 240 NT Pro BNP <125 pg/mL <36 TSH 0.270 - 4.200 mIU/L 116.000 (H) 60.600 (H) Free T3 2.3 - 4.1 pg/mL 1.5 (L) Free T4 0.9 - 1.7 ng/dL 0.7 (L) 1. Weight gain (R63.5) 2. Edema, unspecified type (R60.9) - Acute weight gain of 24 lbs since March 28 with generalized edema; taking Lasix BID but has missed some doses. - Start Zaroxolyn to be taken with the first daily dose of Lasix to enhance diuresis. - Educated on importance of strict adherence to diuretic regimen; instructed to (more content not included)...[facility]08-04-2025 Telephone encounter Note* Telephone Encounter - Sarina Adams MD - 05/07/2025 6:45 PM EDT The following approved medication requests have been transmitted electronically. Requested Prescriptions Signed Prescriptions Disp Refills HYDROcodone-acetaminophen (NORCO) 5-325 mg per tablet 120 tablet 0 Sig: Take 1 tablet by mouth four times a day as needed for pain for up to 30 days. Patient should start on May 09, 2025. Authorizing Provider: SARINA ADAMS lisinopril 2.5 mg tablet 90 tablet 3 Sig: Take 1 tablet by mouth once daily. ON HOLD FOLLOWING HOSPITAL DISCHARGE 04/2024 Authorizing Provider: SARINA ADAMS furosemide (LASIX) 40 mg tablet 180 tablet 1 Sig: Take 1 tablet by mouth two times a day. Authorizing Provider: SARINA ADAMS MD [facility]08-04-2025 Miscellaneous Notes* Telephone Encounter - Sarina Adams MD - 05/07/2025 6:45 PM EDT The following approved medication requests have been transmitted electronically. Requested Prescriptions Signed Prescriptions Disp Refills HYDROcodone-acetaminophen (NORCO) 5-325 mg per tablet 120 tablet 0 Sig: Take 1 tablet by mouth four times a day as needed for pain for up to 30 days. Patient should start on May 09, 2025. Authorizing Provider: SARINA ADAMS lisinopril 2.5 mg tablet 90 tablet 3 Sig: Take 1 tablet by mouth once daily. ON HOLD FOLLOWING HOSPITAL DISCHARGE 04/2024 Authorizing Provider: SARINA ADAMS furosemide (LASIX) 40 mg tablet 180 tablet 1 Sig: Take 1 tablet by mouth two times a day. Authorizing Provider: SARINA ADAMS MD * Telephone Encounter - [place] Sadie Hnikle - 05/07/2025 4:54 PM EDT Prescription Refill Information The patient has been identified by name and date of : Yes Caregiver verified no other encounters exist for this prescription request: Yes Caregiver confirmed with patient/requestor that no other refills are due, in the near future, with this provider at this time: Yes The last office visit in the department: 03/28/25 Does the patient have a future office visit with this provider/department: Yes Requested Prescriptions Pending Prescriptions Disp Refills HYDROcodone-acetaminophen (NORCO) 5-325 mg per tablet 120 tablet 0 Sig: Take 1 tablet by mouth four times a day as needed for pain for up to 30 days. lisinopril 2.5 mg tablet 90 tablet 3 Sig: Take 1 tablet by mouth once daily. ON HOLD FOLLOWING HOSPITAL DISCHARGE 04/2024 furosemide (LASIX) 40 mg tablet 180 tablet 3 Sig: Take 1 tablet by mouth two times a day. Sadie Guevara [facility] May 07, 2025 4:57 PM documented in this encounterK[facility] Telephone encounter Note * Telephone Encounter - Sadie Perez - 05/07/2025 4:54 PM EDT Prescription Refill Information The patient has been identified by name and date of : Yes Caregiver verified no other encounters exist for this prescription request: Yes Caregiver confirmed with patient/requestor that no other refills are due, in the near future, with this provider at this time: Yes The last office visit in the department: 03/28/25 Does the patient have a future office visit with this provider/department: Yes Requested Prescriptions Pending Prescriptions Disp Refills HYDROcodone-acetaminophen (NORCO) 5-325 mg per tablet 120 tablet 0 Sig: Take 1 tablet by mouth four times a day as needed for pain for up to 30 days. lisinopril 2.5 mg tablet 90 tablet 3 Sig: Take 1 tablet by mouth once daily. ON HOLD FOLLOWING HOSPITAL DISCHARGE 04/2024 furosemide (LASIX) 40 mg tablet 180 tablet 3 Sig: Take 1 tablet by mouth two times a day. Sadie Guevara [facility] May 07, 2025 4:57 PM [facility]07-30-2025 Telephone encounter Note* Telephone Encounter - Jaylyn Vazquez LPN - 05/02/2025 8:43 AM EDT Patient has been identified by name and date of : Yes Patient phones for refill(s): Requested Prescriptions Pending Prescriptions Disp Refills blood sugar diagnostic (BLOOD GLUCOSE TEST) test strip 200 strip 11 Sig: Test blood sugar(s) 4 times daily. Dx: Type 2 DM - Controlled E11.9 Insulin: Yes dulaglutide (TRULICITY) 4.5 mg/0.5 mL pen injector 6 mL 1 Sig: Inject 4.5 mg subcutaneously one time a week. meloxicam (MOBIC) 15 mg tablet 30 tablet 5 Sig: Take 1 tablet by mouth once daily as needed for pain. With food. omeprazole (PRILOSEC) 40 mg capsule 30 capsule 5 Sig: Take 1 capsule by mouth once daily. Date of last office visit in primary care: 03/28/2025 Date of next office visit in primary care: 06/28/2025 Please advise. Thank you. Jaylyn Vazquez LPN. [facility]07-30-2025 Miscellaneous Notes* Telephone Encounter - Jaylyn Vazquez LPN - 05/02/2025 8:43 AM EDT Patient has been identified by name and date of : Yes Patient phones for refill(s): Requested Prescriptions Pending Prescriptions Disp Refills blood sugar diagnostic (BLOOD GLUCOSE TEST) test strip 200 strip 11 Sig: Test blood sugar(s) 4 times daily. Dx: Type 2 DM - Controlled E11.9 Insulin: Yes dulaglutide (TRULICITY) 4.5 mg/0.5 mL pen injector 6 mL 1 Sig: Inject 4.5 mg subcutaneously one time a week. meloxicam (MOBIC) 15 mg tablet 30 tablet 5 Sig: Take 1 tablet by mouth once daily as needed for pain. With food. omeprazole (PRILOSEC) 40 mg capsule 30 capsule 5 Sig: Take 1 capsule by mouth once daily. Date of last office visit in primary care: 03/28/2025 Date of next office visit in primary care: 06/28/2025 Please advise. Thank you. Jaylyn Vazquez LPN. documented in this encounterK[facility]07-30-2025 Telephone encounter Note * Telephone Encounter - Rosana Ascencio MA - 05/02/2025 7:48 AM EDT Patient has been identified by name and date of : yes Patient phones for refill(s): Requested Prescriptions Pending Prescriptions Disp Refills insulin aspart U-100 (NOVOLOG) 100 unit/mL (3 mL) pen 30 mL 11 Sig: INJECT 20 UNITS SUBCUTANEOUSLY WITH MEALS THREE TIMES A DAY PLUS SLIDING SCALE #2 (add 2 unitsfor every 50 points above 150 mg/dl) BASED ON PRE-MEAL BLOOD SUGAR (MAX: 96 UNITS PER DAY) Date of last office visit in primary care: 03/28/25 Date of next office visit in primary care: 06/28/25 Please advise. Thank you. Rosana Ascencio MA. [facility]07-30-2025 Miscellaneous Notes* Telephone Encounter - Rosana Ascencio MA - 05/02/2025 7:48 AM EDT Patient has been identified by name and date of : yes Patient phones for refill(s): Requested Prescriptions Pending Prescriptions Disp Refills insulin aspart U-100 (NOVOLOG) 100 unit/mL (3 mL) pen 30 mL 11 Sig: INJECT 20 UNITS SUBCUTANEOUSLY WITH MEALS THREE TIMES A DAY PLUS SLIDING SCALE #2 (add 2 unitsfor every 50 points above 150 mg/dl) BASED ON PRE-MEAL BLOOD SUGAR (MAX: 96 UNITS PER DAY) Date of last office visit in primary care: 03/28/25 Date of next office visit in primary care: 06/28/25 Please advise. Thank you. Rosana Ascencio MA. [facility] Telephone encounter Note * Telephone Encounter - Rosana Ascencio MA - 05/02/2025 7:45 AM EDT Patient has been identified by name and date of : yes Patient phones for refill(s): Requested Prescriptions Pending Prescriptions Disp Refills insulin degludec (TRESIBA FLEXTOUCH U-200) 200 unit/mL (3 mL) injection 18 mL 5 Sig: Inject 80 Units subcutaneously daily at bedtime. flash glucose sensor (FREESTYLE TAYLOR 14 DAY SENSOR) kit 2 kit 5 Sig: Use to check blood sugar 4 times daily. Please give 2 sensors per refill Date of last office visit in primary care: 03/28/2025 Date of next office visit in primary care: 06/28/2025 Please advise. Thank you. Rosana Ascencio MA. [facility]07-30-2025 Miscellaneous Notes* Telephone Encounter - Rosana Ascencio MA - 05/02/2025 7:45 AM EDT Patient has been identified by name and date of : yes Patient phones for refill(s): Requested Prescriptions Pending Prescriptions Disp Refills insulin degludec (TRESIBA FLEXTOUCH U-200) 200 unit/mL (3 mL) injection 18 mL 5 Sig: Inject 80 Units subcutaneously daily at bedtime. flash glucose sensor (FREESTYLE TAYLOR 14 DAY SENSOR) kit 2 kit 5 Sig: Use to check blood sugar 4 times daily. Please give 2 sensors per refill Date of last office visit in primary care: 03/28/2025 Date of next office visit in primary care: 06/28/2025 Please advise. Thank you. Rosana Ascencio MA. documented in this encounterK[facility] Telephone encounter Note * Telephone Encounter - Jaylyn Vazquez LPN - 04/10/2025 2:23 PM EDT Patient has been identified by name and date of : Yes Patient phones for refill(s): Requested Prescriptions Pending Prescriptions Disp Refills rosuvastatin (CRESTOR) 10 mg tablet 30 tablet 11 Sig: Take 1 tablet by mouth daily at bedtime. Fenofibrate (LOFIBRA) 160 mg tablet 30 tablet 11 Sig: Take 1 tablet by mouth once daily. Date of last office visit in primary care: 03/28/2025 Date of next office visit in primary care: 06/28/2025 Please advise. Thank you. Jaylyn Vazquez LPN. [facility] Miscellaneous Notes* Telephone Encounter - Jaylyn Vazquez LPN - 04/10/2025 2:23 PM EDT Patient has been identified by name and date of : Yes Patient phones for refill(s): Requested Prescriptions Pending Prescriptions Disp Refills rosuvastatin (CRESTOR) 10 mg tablet 30 tablet 11 Sig: Take 1 tablet by mouth daily at bedtime. Fenofibrate (LOFIBRA) 160 mg tablet 30 tablet 11 Sig: Take 1 tablet by mouth once daily. Date of last office visit in primary care: 03/28/2025 Date of next office visit in primary care: 06/28/2025 Please advise. Thank you. Jaylyn Vazquez LPN. documented in this encounterK[facility] Telephone encounter Note * Telephone Encounter - Jaylyn Vazquez LPN - 04/09/2025 7:40 PM EDT Patient asking for RX to go to [facility]. Patient has been identified by name and date of : Yes Patient phones for refill(s): Requested Prescriptions Pending Prescriptions Disp Refills Cholecalciferol, Vitamin D3, 125 mcg (5,000 unit) cap 90 capsule 2 Sig: Take 1 capsule by mouth once daily. Date of last office visit in primary care: 03/28/2025 Date of next office visit in primary care: 06/28/2025 Please advise. Thank you. Jaylyn Vazquez LPN. [facility]-07-[facility] Miscellaneous Notes* Telephone Encounter - Jaylyn Vazquez LPN - 04/09/2025 7:40 PM EDT Patient asking for RX to go to [facility]. Patient has been identified by name and date of : Yes Patient phones for refill(s): Requested Prescriptions Pending Prescriptions Disp Refills Cholecalciferol, Vitamin D3, 125 mcg (5,000 unit) cap 90 capsule 2 Sig: Take 1 capsule by mouth once daily. Date of last office visit in primary care: 03/28/2025 Date of next office visit in primary care: 06/28/2025 Please advise. Thank you. Jaylyn Vazquez LPN. documented in [facility] Telephone encounter Note * Telephone Encounter - Jaylyn Vazquez LPN - 04/09/2025 7:39 PM EDT Patient wanting RX to go to [facility] Patient has been identified by name and date of : Yes Patient phones for refill(s): Requested Prescriptions Pending Prescriptions Disp Refills blood sugar diagnostic (FREESTYLE LITE STRIPS) test strip 400 strip 1 Sig: Test blood sugar(s) 4 times daily. Dx: Other DM Code E11.40 Insulin: Yes Date of last office visit in primary care: 03/28/2025 Date of next office visit in primary care: 06/28/2025 Please advise. Thank you. Jaylyn Vazquez LPN. [facility] Miscellaneous Notes* Telephone Encounter - Jaylyn Vazquez LPN - 04/09/2025 7:39 PM EDT Patient wanting RX to go to [facility] Patient has been identified by name and date of : Yes Patient phones for refill(s): Requested Prescriptions Pending Prescriptions Disp Refills blood sugar diagnostic (FREESTYLE LITE STRIPS) test strip 400 strip 1 Sig: Test blood sugar(s) 4 times daily. Dx: Other DM Code E11.40 Insulin: Yes Date of last office visit in primary care: 03/28/2025 Date of next office visit in primary care: 06/28/2025 Please advise. Thank you. Jaylyn Vazquez LPN. documented in this encounterK[facility]-2025 Telephone encounter Note * Telephone Encounter - Sarina Adams MD - 04/07/2025 11:30 AM EDT The following approved medication requests have been transmitted electronically. Requested Prescriptions Signed Prescriptions Disp Refills gabapentin (NEURONTIN) 800 mg tablet 90 tablet 2 Sig: Take 1 tablet by mouth three times a day for 90 days. Patient should start on April 09, 2025. Authorizing Provider: SARINA ADAMS HYDROcodone-acetaminophen (NORCO) 5-325 mg per tablet 120 tablet 0 Sig: Take 1 tablet by mouth four times a day as needed for pain for up to 30 days. Patient should start on April 09, 2025. Authorizing Provider: SARINA ADAMS MD [facility] Miscellaneous Notes* Telephone Encounter - Sarina Adams MD - 04/07/2025 11:30 AM EDT The following approved medication requests have been transmitted electronically. Requested Prescriptions Signed Prescriptions Disp Refills gabapentin (NEURONTIN) 800 mg tablet 90 tablet 2 Sig: Take 1 tablet by mouth three times a day for 90 days. Patient should start on April 09, 2025. Authorizing Provider: SARINA ADAMS HYDROcodone-acetaminophen (NORCO) 5-325 mg per tablet 120 tablet 0 Sig: Take 1 tablet by mouth four times a day as needed for pain for up to 30 days. Patient should start on April 09, 2025. Authorizing Provider: SARINA ADAMS MD * Telephone Encounter - Jorge Moore - 04/05/2025 6:18 PM EDT Patient has been identified by name and date of : Yes, Provider Sarina Adams Date 04/05/25 Time 6:19 Patient phones for refill(s): Requested Prescriptions Pending Prescriptions Disp Refills gabapentin (NEURONTIN) 800 mg tablet 90 tablet 2 Sig: Take 1 tablet by mouth three times a day for 90 days. HYDROcodone-acetaminophen (NORCO) 5-325 mg per tablet 120 tablet 0 Sig: Take 1 tablet by mouth four times a day as needed for pain for up to 30 days. Date of last office visit in primary care: 03/28/2025 Date of next office visit in primary care: 06/28/2025 Please advise. Thank you. Jorge Moore. documented in this encounterK[facility]07-03-2025 Telephone encounter Note * Telephone Encounter - Jorge Moore - 04/05/2025 6:18 PM EDT Patient has been identified by name and date of : Yes, Provider Sarina Adams Date 04/05/25 Time 6:19 Patient phones for refill(s): Requested Prescriptions Pending Prescriptions Disp Refills gabapentin (NEURONTIN) 800 mg tablet 90 tablet 2 Sig: Take 1 tablet by mouth three times a day for 90 days. HYDROcodone-acetaminophen (NORCO) 5-325 mg per tablet 120 tablet 0 Sig: Take 1 tablet by mouth four times a day as needed for pain for up to 30 days. Date of last office visit in primary care: 03/28/2025 Date of next office visit in primary care: 06/28/2025 Please advise. Thank you. Jorge Moore. [facility]07-02-[facility]25 NoteHNO ID: [id number] Author: ?, ?, ? Service: ? Author Type: ? Type: Progress Notes Filed: 04/04/2025 13:16 Note Text: Unable to reach patient[facility] History of Present illness Narrative* Kimberly Brunson - 04/04/2025 1:15 PM EDT Unable to reach patient, mailed colonoscopy letter documented in this encounterK[facility]06-26-2025 Telephone encounter Note * Telephone Encounter - Maylin Delaney LPN - 03/29/2025 11:31 AM EDT Called [facility]. They report pharmacy ran rx incorrectly. They say there is a paid claim today. [facility] Miscellaneous Notes* Telephone Encounter - Maylin Delaney LPN - 03/29/2025 11:31 AM EDT Called [facility]. They report pharmacy ran rx incorrectly. They say there is a paid claim today. * Telephone Encounter - Maylin Delaney LPN - 03/28/2025 4:25 PM EDT This was already completed and approved from 12/2024 to 12/2025 per encounter 12/11/24. Pharmacy notified. They report the pt should call her insurance. * Telephone Encounter - Maylin Delaney LPN - 03/28/2025 4:13 PM EDT Electronic PA requested. * Telephone Encounter - Nida Hamilton LPN - 03/28/2025 3:51 PM EDT Need PA done on Tresiba rx, was transferred from [facility] to [facility] by [facility]. Needs PA because of the high dose 80 units daily at bedtime. She is blocked could not fax a PA or send electronic PA request tothe office. PRIOR AUTHORIZATION Medication for Prior Authorization: Tresiba Other formulary meds available : NO Insurance Company: [employer] phone number: [phone] Patient insurance ID number: [id number] Nida Hamilton LPN documented in this encounterK[facility]06-25-2025 Telephone encounter Note * Telephone Encounter - Maylin Delaney LPN - 03/28/2025 4:25 PM EDT This was already completed and approved from 12/2024 to 12/2025 per encounter 12/11/24. Pharmacy notified. They report the pt should call her insurance. [facility] Telephone encounter Note* Telephone Encounter - Maylin Delaney LPN - 03/28/2025 4:13 PM EDT Electronic PA requested. [facility] Telephone encounter Note* Telephone Encounter - Nida Hamilton LPN - 03/28/2025 3:51 PM EDT Need PA done on Tresiba rx, was transferred from [facility] to [facility] by [facility]. Needs PA because of the high dose 80 units daily at bedtime. She is blocked could not fax a PA or send electronic PA request tothe office. PRIOR AUTHORIZATION Medication for Prior Authorization: Tresiba Other formulary meds available : NO Insurance Company: [employer] phone number: [phone] Patient insurance ID number: [id number] Nida Hamilton LPN [facility]06-25-2025 NoteHNO ID: [id number] Author: COLE BOWER APRN.ADVISORY SOFTWARE ENGINEER Service: ? Author Type: Nurse Practitioner Type: Progress Notes Filed: 03/28/2025 15:55 Note Text: SUBJECTIVE Samantha Romero is a 59 year old female here today for a check up on her medical problems. Chief Complaint Patient presents with: Recheck: did complain of right sided chest pain that started on her way into the office. Describes it as a sore feeling. HPI Samantha Romero is a 59-year-old female with a history of diabetes mellitus, neuropathy, and hypothyroidism, presenting for follow-up. Samantha reports experiencing right-sided chest pain while en route to the clinic today. The pain, located near the shoulder, has decreased in intensity but is still present. It is exacerbated by palpation. She denies any specific triggers for the pain, noting that it began while she was sitting in the car. She continues to experience pain in her arm, particularly when attempting to raise it. She tries to move it as much as possible to maintain mobility. She is currently taking Reynolds for pain management, which she reports is effective in keeping her pain mild. She is also taking gabapentin 800 mg TID. Samantha has been unable to take her Tresiba for the past 2 weeks due to transportation issues preventing her from picking up the medication. As a result, she reports fluctuating blood glucose levels. She is still taking Trulicity once a week. She reports persistent swelling, which she notes is making it difficult for her to walk and get around. She is currently taking Lasix and was previously prescribed metolazone for 10 days last month. She requests a refill of metolazone. She has also noticed weight loss, with her current weight at 248 lbs, down from 254 lbs in December. She mentions that she has never weighed over 200 lbs before. She is unsure if her weight has decreased further. Samantha has a history of hypothyroidism and is due for a recheck of her thyroid function. She was informed that her TSH level was 116 mU/L. She is also due for blood work to check her A1c, but she has not been taking her Tresiba. In regards to medications currently taken for pain management, the patient is tolerating these medications well. She denies side effects and she reports that the medications improve her quality of life and ability to function. She denies misuse, abuse or diversion of medications. Overall her pain is unchanged than the last visit. Her medications were reviewed today and her list is now up to date. Medications Current Outpatient Medications Medication Sig HYDROcodone-acetaminophen (NORCO) 5-325 mg per tablet Take 1 tablet by mouth four times a day as needed for pain for up to 30 days. Patient should start on March 10, 2025. meloxicam (MOBIC) 15 mg tablet Take 1 tablet by mouth once daily as needed for pain. With food. omeprazole (PRILOSEC) 40 mg capsule Take 1 capsule by mouth once daily. dulaglutide (TRULICITY) 4.5 mg/0.5 mL pen injector Inject 4.5 mg subcutaneously one time a week. gabapentin (NEURONTIN) 800 mg tablet Take 1 tablet by mouth three times a day for 90 days. Patient should start on February 08, 2025. levothyroxine (SYNTHROID) 150 mcg tablet Take 2 tablets by mouth once daily. keTORolac (ACULAR) 0.5 % ophthalmic solution EVERY 6 HOURS prednisoLONE acetate (PRED FORTE) 1 % ophthalmic suspension EVERY 6 HOURS promethazine (PHENERGAN) 25 mg tablet Take 25 mg by mouth every 6 hours as needed. empagliflozin (JARDIANCE) 25 mg tablet Take 1 tablet by mouth daily with breakfast. ON HOLD FOLLOWING HOSPITAL DISCHARGE 04/2024 lisinopril 2.5 mg tablet Take 1 tablet by mouth once daily. ON HOLD FOLLOWING HOSPITAL DISCHARGE 04/2024 insulin aspart U-100 (NOVOLOG) 100 unit/mL (3 mL) INJECT 20 UNITS SUBCUTANEOUSLY WITH MEALS THREE TIMES A DAY PLUS SLIDING SCALE #2 (add 2 units for every 50 points above 150 mg/dl) BASED ON PRE-MEAL BLOOD SUGAR (MAX: 96 UNITS PER DAY) insulin degludec (TRESIBA FLEXTOUCH U-200) 200 unit/mL (3 mL) injection Inject 80 Units subcutaneously daily at bedtime. dicyclomine (BENTYL) 10 mg capsule Take 1 capsule by mouth before meals and at bedtime. for abdominal pain Fenofibrate (LOFIBRA) 160 mg tablet Take 1 tablet by mouth once daily. rosuvastatin (CRESTOR) 10 mg tablet Take 1 tablet by mouth daily at bedtime. hydrOXYzine HCl (ATARAX) 25 mg tablet Take 1-2 tablets by mouth at bedtime as needed. fluticasone (FLONASE) 50 mcg/actuation nasal spray Use 1-2 Sprays in each nostril once daily as needed. Cholecalciferol, Vitamin D3, 125 mcg (5,000 unit) cap Take 1 capsule by mouth once daily. potassium chloride (K-TAB) 10 mEq tablet Take 1 tablet by mouth once daily. metOLazone (ZAROXOLYN) 10 mg tablet Take 1 tablet by mouth once daily for 5 days. flash glucose sensor (FREESTYLE TAYLOR 14 DAY SENSOR) kit Use to check blood sugar 4 times daily. Please give 2 sensors per refill blood sugar diagnostic (BLOOD GLUC (more content not included)...[facility]06-[facility] History of Present illness Narrative* Cole Bower APRN.ADVISORY SOFTWARE ENGINEER - 03/28/2025 3:12 PM EDT SUBJECTIVE Samantha Romero is a 59 year old female here today for a check up on her medical problems. Chief Complaint Patient presents with: Recheck: did complain of right sided chest pain that started on her way into the office. Describes it as a sore feeling. HPI Samantha Romero is a 59-year-old female with a history of diabetes mellitus, neuropathy, and hypothyroidism, presenting for follow-up. Samantha reports experiencing right-sided chest pain while en route to the clinic today. The pain, located near the shoulder, has decreased in intensity but is still present. It is exacerbated by palpation. She denies any specific triggers for the pain, noting that it began while she was sitting in the car. She continues to experience pain in her arm, particularly when attempting to raise it. She tries tomove it as much as possible to maintain mobility. She is currently taking Reynolds for pain management, which she reports is effective in keeping her pain mild. She is also taking gabapentin 800 mg TID. Samantha has been unable to take her Tresiba for the past 2 weeks due to transportation issues preventing her from picking up the medication. As a result, she reports fluctuating blood glucose levels. Sheis still taking Trulicity once a week. She reports persistent swelling, which she notes is making it difficult for her to walk and get around. She is currently taking Lasix and was previously prescribed metolazone for 10 days last month. She requests a refill of metolazone. She has also noticed weight loss, with her current weight at 248 lbs, down from 254 lbs in December. She mentions that she has never weighed over 200 lbs before. She is unsure if her weight has decreased further. Samantha has a history of hypothyroidism and is due for a recheck of her thyroid function. She was informed that her TSH level was 116 mU/L. She is also due for blood work to check her A1c, but she has not been taking her Tresiba. In regards to medications currently taken for pain management, the patient is tolerating these medications well. She denies side effects and she reports that the medications improve her quality of life and ability to function. She denies misuse, abuse or diversion of medications. Overall her pain is unchanged than the last visit. Her medications were reviewed today and her list is now up to date. Medications Current Outpatient Medications Medication Sig HYDROcodone-acetaminophen (NORCO) 5-325 mg per tablet Take 1 tablet by mouth four times a day as needed for pain for up to 30 days. Patient should start on March 10, 2025. meloxicam (MOBIC) 15 mg tablet Take 1 tablet by mouth once daily as needed for pain. With food. omeprazole (PRILOSEC) 40 mg capsule Take 1 capsule by mouth once daily. dulaglutide (TRULICITY) 4.5 mg/0.5 mL pen injector Inject 4.5 mg subcutaneously one time a week. gabapentin (NEURONTIN) 800 mg tablet Take 1 tablet by mouth three times a day for 90 days. Patient should start on February 08, 2025. levothyroxine (SYNTHROID) 150 mcg tablet Take 2 tablets by mouth once daily. keTORolac (ACULAR) 0.5 % ophthalmic solution EVERY 6 HOURS prednisoLONE acetate (PRED FORTE) 1 % ophthalmic suspension EVERY 6 HOURS promethazine (PHENERGAN) 25 mg tablet Take 25 mg by mouth every 6 hours as needed. empagliflozin (JARDIANCE) 25 mg tablet Take 1 tablet by mouth daily with breakfast. ON HOLD FOLLOWING HOSPITAL DISCHARGE 04/2024 lisinopril 2.5 mg tablet Take 1 tablet by mouth once daily. ON HOLD FOLLOWING HOSPITAL DISCHARGE 04/2024 insulin aspart U-100 (NOVOLOG) 100 unit/mL (3 mL) INJECT 20 UNITS SUBCUTANEOUSLY WITH MEALS THREE TIMES A DAY PLUS SLIDING SCALE #2 (add 2 units for every 50 points above 150 mg/dl) BASED ON PRE-MEAL BLOOD SUGAR (MAX: 96 UNITS PER DAY) insulin degludec (TRESIBA FLEXTOUCH U-200) 200 unit/mL (3 mL) injection Inject 80 Units subcutaneously daily at bedtime. dicyclomine (BENTYL) 10 mg capsule Take 1 capsule by mouth before meals and at bedtime. for abdominal pain Fenofibrate (LOFIBRA) 160 mg tablet Take 1 tablet by mouth once daily. rosuvastatin (CRESTOR) 10 mg tablet Take 1 tablet by mouth daily at bedtime. hydrOXYzine HCl (ATARAX) 25 mg tablet Take 1-2 tablets by mouth at bedtime as needed. fluticasone (FLONASE) 50 mcg/actuation nasal spray Use 1-2 Sprays in each nostril once daily as needed. Cholecalciferol, Vitamin D3, 125 mcg (5,000 unit) cap Take 1 capsule by mouth once daily. potassium chloride (K-TAB) 10 mEq tablet Take 1 tablet by mouth once daily. metOLazone (ZAROXOLYN) 10 mg tablet Take 1 tablet by mouth once daily for 5 days. flash glucose sensor (FREESTYLE TAYLOR 14 DAY SENSOR) kit Use to check blood sugar 4 times daily. Please give 2 sensors per refill blood sugar diagnostic (BLOOD GLUCOSE TEST) test strip Test blood sugar(s) 4 times daily. Dx: Type 2 DM - Controlled E11.9 Insulin: Yes blood sugar diagnostic (FREESTYLE LITE STRIPS) test strip Test blood sugar(s) 4 times daily. Dx: Other DM Code E11.40 Insulin: Yes insulin degludec (TRESIBA FLEXTOUCH U-200) 200 unit/mL (3 mL) injection Inject 80 Units subcutaneously daily at bedtime. furosemide (LASIX) 40 mg tablet Take 1 tablet by mouth two times a day. Insulin [place], Disposable, (DROPLET PEN NEEDLE) 31 gauge x 3/16 use 1 PEN NEEDLE to inject MEDICATION subcutaneously four times a day PEG 400-propylene glycol (SYSTANE ULTRA) 0.4-0.3 % ophthalmic solution Use 1 Drop in both eyes fourtimes daily. blood sugar diagnostic (BLOOD GLUCOSE TEST) test strip Test blood sugar(s) 4 times daily. Dx: OtherDM Code E11.40 Insulin: Yes (Patient not taking: Reported on 11/28/2024) OXYGEN, HOME THERAPY, Inhale as instructed as directed. Uses at 2 l/m via nasal cannula during the day and 4 l/m at night Blood-Glucose Meter monitoring kit Check sugars daily and as needed (Freestyle Lite is what she hashad) Lancets lancets Test blood sugar(s) 4 times daily. Dx: E11.9 Insulin: Yes Miscellaneous Medical Supply (BLOOD PRESSURE CUFF) 1 Each as needed. Blood pressure Monitor and Cuff, use as directed. Dx: I10 Hypertension flash glucose scanning reader (FREESTYLE TAYLOR 14 DAY READER) Use to check blood sugar 4 times daily estradiol (ESTRACE) 0.01 % (0.1 mg/gram) vaginal cream Use 3 g vaginally two times a week. No current facility-administered medications for this visit. ALLERGIES Allergen Reactions Metformin Diarrhea Diarrhea every time takes, even with ER dose Oxycodone GI Upset Percocet [Oxycodone* GI Upset and off balance ACTIVE PROBLEM LIST Hypothyroid - 04/19/2014 (A priority) Diabetic Eye Exam ([facility]) - 04/05/2014 (A priority) Hyperlipidemia - 04/05/2014 (A priority) Kidney Stone On Left Side - 04/12/2014 (C priority) Comment: Dr. Ash is her doctor. Chronic Diastolic Congestive Heart Failure ([facility]) - 10/16/2024 Pericardial Effusion ([facility]) - 01/25/2023 Obesity, Class III, BMI >= 40 - 12/18/2022 Gastroesophageal Reflux Disease - 10/19/2022 Chronic Midline Low Back Pain - 10/19/2022 Esophageal Dysphagia - 10/19/2022 Gastroesophageal Reflux Disease With Esophagitis Without Hemorrhage - 10/19/2022 Comment: Intermittent reflux Myasthenia Gravis ([facility]) - 07/30/2022 Type 2 Diabetes Mellitus With Diabetic Neuropathy, With Long-Term Current Use of Insulin ([facility]) - 07/30/2022 Bilateral Leg Edema - 07/30/2022 Comment: worse on left Dysuria - 07/30/2022 Comment: Follow up with gynecology Pérez (Dyspnea On Exertion) - 12/09/2021 Chronic Hypoxemic Respiratory Failure ([facility]) - 12/09/2021 Pneumonia Due to Covid-19 Virus - 08/05/2021 Status Post Cataract Extraction and Insertion of Intraocular Lens of Right Eye - 06/03/2021 Combined Forms of Age-Related Cataract of Left Eye - 05/09/2021 Type 2 Diabetes Mellitus With Moderate Nonproliferative Diabetic Retinopathy With Macular Edema ([facility]) - 05/09/2021 Type 2 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 Macular Edema, Without Long-Term Current Use of Insulin ([facility]) - 05/09/2021 Uncontrolled Type 2 Diabetes With Neuropathy - 08/20/2015 Abnormally Small Mouth - 06/24/2015 Essential Hypertension - 06/24/2015 Thrombocytopenia - 06/24/2015 Noncompliance - 10/17/2014 OA (osteoarthritis) of hip, bilateral - 04/04/2014 Social History Tobacco Use Smoking status: Former Current packs/day: 0.00 Average packs/day: 1 pack/day for 30.0 years (30.0 ttl pk-yrs) Types: Cigarettes Start date: 11/04/1983 Quit date: 11/04/2013 Years since quittin.4 Smokeless tobacco: Never Vaping Use Vaping status: Never Used Substance Use Topics Alcohol use: Not Currently Comment: wine cool every once in a while Drug use: Not Currently Types: Marijuana Review of Systems Constitutional: Negative. Respiratory: Negative. Cardiovascular: Positive for leg swelling. Negative for palpitations. OBJECTIVE BP 112/54 Pulse 73 Wt 248 lb 0.3 oz (112.5kg) SpO2 94[O2 at 2 L/M]% LMP 04/27/2016 Physical Exam Vitals and nursing note reviewed. Constitutional: General: She is awake. She is not in acute distress. Appearance: Normal appearance. She is well-developed and well-groomed. She is not ill-appearing, toxic-appearing or diaphoretic. HENT: Head: Normocephalic. Right Ear: External ear normal. Left Ear: External ear normal. Nose: Nose normal. Eyes: General: Vision grossly intact. Conjunctiva/sclera: Conjunctivae normal. Pupils: Pupils are equal, round, and reactive to light. Neck: Vascular: No JVD. Trachea: Trachea normal. Cardiovascular: Rate and Rhythm: Normal rate and regular rhythm. Pulses: Normal pulses. Heart sounds: Normal heart sounds. No murmur heard. Pulmonary: Effort: Pulmonary effort is normal. No accessory muscle usage, prolonged expiration or respiratory distress. Breath sounds: Normal breath sounds. Musculoskeletal: Cervical back: Neck supple. Right lower leg: Edema present. Left lower leg: Edema present. Skin: General: Skin is warm and dry. Capillary Refill: Capillary refill takes less than 2 seconds. Neurological: General: No focal deficit present. Mental Status: She is alert and oriented to person, place, and time. Mental status is at baseline. Psychiatric: Attention and Perception: Attention and perception normal. Mood and Affect: Mood and affect normal. Speech: Speech normal. Behavior: Behavior normal. Behavior is cooperative. Thought Content: Thought content normal. Cognition and Memory: Cognition and memory normal. Judgment: Judgment normal. ASSESSMENT/PLAN: 1. Right-sided chest pain (R07.9) Localized near the shoulder, mild tenderness on palpation. Pain is decreasing in intensity. Monitor symptoms; advised to report any worsening or persistent pain. 2. Chronic SI joint pain (M53.3) Chronic midline low back pain, unspecified whether sciatica present (M54.50) Managed with Reynolds, which is effectively controlling pain. Continue current pain management regimen. 3. 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) (E11.3319) Blood glucose levels are fluctuating due to a two-week lapse in Tresiba administration. - Resume Tresiba as soon as possible. - Scheduled blood work today; deferred A1c measurement. - Follow-up in three months. 4. Hypertensive chronic kidney disease, unspecified CKD stage (I12.9) Condition is contributing to leg swelling. Monitor renal function with scheduled blood work today. 5. Acquired hypothyroidism (E03.9) Previous TSH level was significantly elevated at 116 mIU/L, indicating severe hypothyroidism. Ordered repeat TSH test to assess current thyroid function. 6. Hypokalemia (E87.6) Requires ongoing management. Prescribed potassium supplementation; sent prescription to pharmacy. 7. Encounter for therapeutic drug monitoring (Z51.81) Monitoring of Trulicity and Tresiba adherence and effectiveness. Review medication adherence and effectiveness during follow-up. 8. Screening for depression (Z13.31) Encounter for screening examination for other mental health and behavioral disorders (Z13.39) 9. Leg swelling (M79.89) Persistent edema, likely multifactorial, including contributions from CKD and hypothyroidism. - Prescribed metolazone for 5 days to reduce edema. - Monitor response to diuretic therapy; follow-up in three months to reassess. Portions of this note have been entered by ancillary staff. I have reviewed and when necessary edited, so that they are an adequate record of my encounter with this patient Please note that parts of this document were created using voice recognition software and therefore may contain grammatical errors. Patient verbalizes understanding of instructions from today's visit and in agreement with treatmentplan. Questions answered. Agrees to call the office if questions, concerns of issues with acute symptoms not improving or if they worsen. See diagnoses and orders for additional plan(s). Allergies and medications were reviewed, list was updated, and refills given if needed. Past medical, surgical, social, and family history reviewed and updated as appropriate. Encouraged proper diet & exercise as well as compliance with taking medications. Age- appropriate health preventative measures were discussed.. Return in about 3 months (around 06/28/2025) for Follow up on chronic conditions and medications.. Cole Bower APRN-ADVISORY SOFTWARE ENGINEER documented in this encounterK[facility]06-23-2025 NotePatient Outreach (ASWSTR) SAMANTHA ROMERO ([id number]) 1965 F Date Time Provider Department 03/26/25 SARINA ADAMS ASWSTR During your visit today, we recorded the following information about you: Kimberly Brunson 04/04/2025 1:16 PM Signed Unable to reach patient, mailed colonoscopy letter Allergies As of Date: 03/26/2025 Noted Allergy Reaction METFORMIN 09/10/2016 6 - Diarrhea Comments: Diarrhea every time takes, even with ER dose OXYCODONE 07/07/2021 8 - GI Upset PERCOCET (OXYCODONE-ACETAMINOPHEN)05/07/2014 8 - GI Upset Comments: and off balance Date Reviewed: 12/08/2024 Reviewed by: Mara Degroot LPN - Fully Assessed Reason for Visit: Outpatient Colonoscopy [482] Cmt: Patient is overdue for colorectal cancer screening. (has never done). Patient will need consult with Myles Jackson CNP prior to colorectal cancer screening. Primary Visit Diagnosis:Screening for colorectal cancer [Z12.11, Z12.12] Prescriptions as of 04/04/2025 - potassium chloride (K-TAB) 10 mEq tablet Take 1 tablet by mouth once daily. - metOLazone (ZAROXOLYN) 10 mg tablet Take 1 tablet by mouth once daily for 5 days. - flash glucose sensor (FREESTYLE TAYLOR 14 DAY SENSOR) kit Use to check blood sugar 4 times daily. Please give 2 sensors per refill - HYDROcodone-acetaminophen (NORCO) 5-325 mg per tablet Take 1 tablet by mouth four times a day as needed for pain for up to 30 days. Patient should start on March 10, 2025. - meloxicam (MOBIC) 15 mg tablet Take 1 tablet by mouth once daily as needed for pain. With food. - omeprazole (PRILOSEC) 40 mg capsule Take 1 capsule by mouth once daily. - dulaglutide (TRULICITY) 4.5 mg/0.5 mL pen injector Inject 4.5 mg subcutaneously one time a week. - gabapentin (NEURONTIN) 800 mg tablet Take 1 tablet by mouth three times a day for 90 days. Patient should start on February 08, 2025. - blood sugar diagnostic (BLOOD GLUCOSE TEST) test strip Test blood sugar(s) 4 times daily. Dx: Type 2 DM - Controlled E11.9 Insulin: Yes - blood sugar diagnostic (FREESTYLE LITE STRIPS) test strip Test blood sugar(s) 4 times daily. Dx: Other DM Code E11.40 Insulin: Yes - levothyroxine (SYNTHROID) 150 mcg tablet Take 2 tablets by mouth once daily. - insulin degludec (TRESIBA FLEXTOUCH U-200) 200 unit/mL (3 mL) injection Inject 80 Units subcutaneously daily at bedtime. - furosemide (LASIX) 40 mg tablet Take 1 tablet by mouth two times a day. - keTORolac (ACULAR) 0.5 % ophthalmic solution EVERY 6 HOURS - prednisoLONE acetate (PRED FORTE) 1 % ophthalmic suspension EVERY 6 HOURS - promethazine (PHENERGAN) 25 mg tablet Take 25 mg by mouth every 6 hours as needed. - empagliflozin (JARDIANCE) 25 mg tablet Take 1 tablet by mouth daily with breakfast. ON HOLD FOLLOWING HOSPITAL DISCHARGE 04/2024 - lisinopril 2.5 mg tablet Take 1 tablet by mouth once daily. ON HOLD FOLLOWING HOSPITAL DISCHARGE 04/2024 - insulin aspart U-100 (NOVOLOG) 100 unit/mL (3 mL) INJECT 20 UNITS SUBCUTANEOUSLY WITH MEALS THREE TIMES A DAY PLUS SLIDING SCALE #2 (add 2 units for every 50 points above 150 mg/dl) BASED ON PRE-MEAL BLOOD SUGAR (MAX: 96 UNITS PER DAY) - insulin degludec (TRESIBA FLEXTOUCH U-200) 200 unit/mL (3 mL) injection Inject 80 Units subcutaneously daily at bedtime. - dicyclomine (BENTYL) 10 mg capsule Take 1 capsule by mouth before meals and at bedtime. for abdominal pain - Fenofibrate (LOFIBRA) 160 mg tablet Take 1 tablet by mouth once daily. - rosuvastatin (CRESTOR) 10 mg tablet Take 1 tablet by mouth daily at bedtime. - hydrOXYzine HCl (ATARAX) 25 mg tablet Take 1-2 tablets by mouth at bedtime as needed. - Insulin [place], Disposable, (DROPLET PEN NEEDLE) 31 gauge x 3/16 use 1 PEN NEEDLE to inject MEDICATION subcutaneously four times a day - fluticasone (FLONASE) 50 mcg/actuation nasal spray Use 1-2 Sprays in each nostril once daily as needed. - PEG 400-propylene glycol (SYSTANE ULTRA) 0.4-0.3 % ophthalmic solution Use 1 Drop in both eyes four times daily. - Cholecalciferol, Vitamin D3, 125 mcg (5,000 unit) cap Take 1 capsule by mouth once daily. - blood sugar diagnostic (BLOOD GLUCOSE TEST) test strip Test blood sugar(s) 4 times daily. Dx: Other DM Code E11.40 Insulin: Yes - OXYGEN, HOME THERAPY, Inhale as instructed as directed. Uses at 2 l/m via nasal cannula during the day and 4 l/m at night - Blood-Glucose Meter monitoring kit Check sugars daily and as needed (Freestyle Lite is what she has had) - Lancets lancets Test blood sugar(s) 4 times daily. Dx: E11.9 Insulin: Yes - Miscellaneous Medical Supply (BLOOD PRESSURE CUFF) 1 Each as needed. Blood pressure Monitor and Cuff, use as directed. Dx: I10 Hypertension - flash glucose scanning reader (FREESTYLE TAYLOR 14 DAY READER) Use to check blood sugar 4 times daily - estradiol (ESTRACE) 0.01 % (0.1 mg/gram) vaginal cream (more content not included)...[facility]06-05-2025 Telephone encounter Note* Telephone Encounter - Denise Alvarado APRN.CNS - 03/08/2025 4:32 PM EDT ok [facility]06-05-2025 Miscellaneous Notes* Telephone Encounter - Denise Alvarado APRN.CNS - 03/08/2025 4:32 PM EDT ok * Telephone Encounter - Nicole Grimm - 03/07/2025 5:04 PM EDT Prescription Refill Information The patient has been identified by name and date of : Yes Caregiver verified no other encounters exist for this prescription request: Yes Caregiver confirmed with patient/requestor that no other refills are due, in the near future, with this provider at this time: Yes The last office visit in the department: 12/08/2024 Does the patient have a future office visit with this provider/department: Yes Requested Prescriptions Pending Prescriptions Disp Refills gabapentin (NEURONTIN) 800 mg tablet 90 tablet 2 Sig: Take 1 tablet by mouth three times a day for 90 days. flash glucose sensor (FREESTYLE TAYLOR 14 DAY SENSOR) kit 2 kit 5 Sig: Use to check blood sugar 4 times daily. Please give 2 sensors per refill HYDROcodone-acetaminophen (NORCO) 5-325 mg per tablet 120 tablet 0 Sig: Take 1 tablet by mouth four times a day as needed for pain for up to 30 days. Nicole Grimm March 07, 2025 5:06 PM documented in this encounterK[facility]06-04-2025 Telephone encounter Note * Telephone Encounter - Nicole Grimm - 03/07/2025 5:04 PM EDT Prescription Refill Information The patient has been identified by name and date of : Yes Caregiver verified no other encounters exist for this prescription request: Yes Caregiver confirmed with patient/requestor that no other refills are due, in the near future, with this provider at this time: Yes The last office visit in the department: 12/08/2024 Does the patient have a future office visit with this provider/department: Yes Requested Prescriptions Pending Prescriptions Disp Refills gabapentin (NEURONTIN) 800 mg tablet 90 tablet 2 Sig: Take 1 tablet by mouth three times a day for 90 days. flash glucose sensor (FREESTYLE TAYLOR 14 DAY SENSOR) kit 2 kit 5 Sig: Use to check blood sugar 4 times daily. Please give 2 sensors per refill HYDROcodone-acetaminophen (NORCO) 5-325 mg per tablet 120 tablet 0 Sig: Take 1 tablet by mouth four times a day as needed for pain for up to 30 days. Nicole Grimm March 07, 2025 5:06 PM [facility]05-29-2025 Telephone encounter Note* Telephone Encounter - Maylin Delaney LPN - 03/01/2025 2:52 PM EDT Called pt to [facility] contact [facility] and pull any refills. If anything else is neededit can be reviewed at 03/05/25 appt. [facility]05-29-2025 Miscellaneous Notes* Telephone Encounter - Maylni Delaney LPN - 03/01/2025 2:52 PM EDT Called pt to review [facility] and pull any refills. If anything else is neededit can be reviewed at 03/05/25 appt. * Telephone Encounter - Sadie Perez - 02/28/2025 3:50 PM EDT Samantha is a patient of Sarina Adams MD today she has questions due to [facility] is closing and she will need all medications resubmitted to [facility]. She stated there is a question on her Trulicity being cancelled per Pharmacy. She also is having trouble getting her insulin. Please call today. Patient has been identified by name and birthdate. Duration of symptoms: N/A Person calling: self Call patient at: on cell Was an appointment scheduled: No Closing statement: Results or non-symptom based questions: Thank you for calling [facility], your call will be returned within the next business day. Sadie Hinkle documented in this encounterK[facility]tering [facility]05-28-2025 Telephone encounter Note * Telephone Encounter - Sadie Perez - 02/28/2025 3:50 PM EDT Samantha is a patient of Sarina Adams MD today she has questions due to [facility] is closing and she will need all medications resubmitted to [facility]. She stated there is a question on her Trulicity being cancelled per Pharmacy. She also is having trouble getting her insulin. Please call today. Patient has been identified by name and birthdate. Duration of symptoms: N/A Person calling: self Call patient at: on cell Was an appointment scheduled: No Closing statement: Results or non-symptom based questions: Thank you for calling [facility], your call will be returned within the next business day. Sadie Guevara Pss [facility]05-09-2025 Telephone encounter Note* Telephone Encounter - Rosa Elena Deluca LPN - 02/09/2025 10:11 AM EDT Pharmacy is only dispensing 2 ml with each fill. [facility]05-09-2025 Miscellaneous Notes* Telephone Encounter - Rosa Elena Deluca LPN - 02/09/2025 10:11 AM EDT Pharmacy is only dispensing 2 ml with each fill. * Telephone Encounter - Yessica Sen - 02/08/2025 11:43 AM EDT Prescription Refill Information The patient has been identified by name and date of : Yes Caregiver verified no other encounters exist for this prescription request: YES Caregiver confirmed with patient/requestor that no other refills are due, in the near future, with this provider at this time: Yes The last office visit in the department: 12/08/24 Does the patient have a future office visit with this provider/department: Yes Requested Prescriptions Pending Prescriptions Disp Refills dulaglutide (TRULICITY) 4.5 mg/0.5 mL pen injector 6 mL 3 Sig: Inject 4.5 mg subcutaneously one time a week. Yessica Sen February 08, 2025 11:44 AM documented in this encounterK[facility]05-08-2025 Telephone encounter Note * Telephone Encounter - Yessica Sen - 02/08/2025 11:43 AM EDT Prescription Refill Information The patient has been identified by name and date of : Yes Caregiver verified no other encounters exist for this prescription request: YES Caregiver confirmed with patient/requestor that no other refills are due, in the near future, with this provider at this time: Yes The last office visit in the department: 12/08/24 Does the patient have a future office visit with this provider/department: Yes Requested Prescriptions Pending Prescriptions Disp Refills dulaglutide (TRULICITY) 4.5 mg/0.5 mL pen injector 6 mL 3 Sig: Inject 4.5 mg subcutaneously one time a week. Yessica Sen February 08, 2025 11:44 AM [facility]05-05-2025 Telephone encounter Note* Telephone Encounter - Ale Boucher LPN - 02/05/2025 2:04 PM EDT Spoke with pt gave information provided. She voices understanding. [place] [address]-05-2025 Miscellaneous Notes* Telephone Encounter - Ale Boucher LPN - 02/05/2025 2:04 PM EDT Spoke with pt gave information provided. She voices understanding. * Telephone Encounter - Sarina Adams MD - 02/05/2025 1:10 PM EDT Let her know that controlled medications need escripted--paper RX only for unusual circumstances, like computer or power down. Set for date due 02/08 since last filled 01/09 The following approved medication requests have been transmitted electronically. Requested Prescriptions Signed Prescriptions Disp Refills gabapentin (NEURONTIN) 800 mg tablet 90 tablet 2 Sig: Take 1 tablet by mouth three times a day for 90 days. Patient should start on February 08, 2025. Authorizing Provider: SARINA ADAMS HYDROcodone-acetaminophen (NORCO) 5-325 mg per tablet 120 tablet 0 Sig: Take 1 tablet by mouth four times a day as needed for pain for up to 30 days. Patient should start on February 08, 2025. Authorizing Provider: SARINA ADAMS MD * Telephone Encounter - Tracey De Leon RN - 02/05/2025 12:13 PM EDT Patient transferred to triage line with questions on Reynolds prescription. Patient asking for prescription to be sent to pharmacy and not a paper prescription. Medication is pended as normal for electronic delivery. Tracey De Leon RN * Telephone Encounter - Gayla Bailey - 02/05/2025 11:59 AM EDT Patient has been identified by name and date of : Yes, Provider Date 02/05/25 Time 12:00 pm Patient phones for refill(s): Requested Prescriptions Pending Prescriptions Disp Refills gabapentin (NEURONTIN) 800 mg tablet Sig: Take 1 tablet by mouth three times a day. gabapentin (NEURONTIN) 800 mg tablet 90 tablet 2 Sig: Take 1 tablet by mouth three times a day for 90 days. HYDROcodone-acetaminophen (NORCO) 5-325 mg per tablet 120 tablet 0 Sig: Take 1 tablet by mouth four times a day as needed for pain for up to 30 days. Short term increase to 4 times daily as needed due to fall/rotator cuff injury Date of last office visit in primary care: 12/08/2024 Date of next office visit in primary care: 02/12/2025 Please advise. Thank you. Gayla Hinkle. documented in this encounterK[facility]05-05-2025 Telephone encounter Note * Telephone Encounter - Sarina Adams MD - 02/05/2025 1:10 PM EDT Let her know that controlled medications need escripted--paper RX only for unusual circumstances, like computer or power down. Set for date due 02/08 since last filled 01/09 The following approved medication requests have been transmitted electronically. Requested Prescriptions Signed Prescriptions Disp Refills gabapentin (NEURONTIN) 800 mg tablet 90 tablet 2 Sig: Take 1 tablet by mouth three times a day for 90 days. Patient should start on February 08, 2025. Authorizing Provider: SARINA ADAMS HYDROcodone-acetaminophen (NORCO) 5-325 mg per tablet 120 tablet 0 Sig: Take 1 tablet by mouth four times a day as needed for pain for up to 30 days. Patient should start on February 08, 2025. Authorizing Provider: SARINA ADAMS MD [facility]05-05-2025 Telephone encounter Note* Telephone Encounter - Tracey De Leon RN - 02/05/2025 12:13 PM EDT Patient transferred to triage line with questions on Reynolds prescription. Patient asking for prescription to be sent to pharmacy and not a paper prescription. Medication is pended as normal for electronic delivery. Tracey De Leon RN [facility]05-05-2025 Telephone encounter Note* Telephone Encounter - Gayla Bailey - 02/05/2025 11:59 AM EDT Patient has been identified by name and date of : Yes, Provider Date 02/05/25 Time 12:00 pm Patient phones for refill(s): Requested Prescriptions Pending Prescriptions Disp Refills gabapentin (NEURONTIN) 800 mg tablet Sig: Take 1 tablet by mouth three times a day. gabapentin (NEURONTIN) 800 mg tablet 90 tablet 2 Sig: Take 1 tablet by mouth three times a day for 90 days. HYDROcodone-acetaminophen (NORCO) 5-325 mg per tablet 120 tablet 0 Sig: Take 1 tablet by mouth four times a day as needed for pain for up to 30 days. Short term increase to 4 times daily as needed due to fall/rotator cuff injury Date of last office visit in primary care: 12/08/2024 Date of next office visit in primary care: 02/12/2025 Please advise. Thank you. Gayla Hinkle. [facility]04-18-2025 Telephone encounter Note* Telephone Encounter - Vanessa Heredia - 01/19/2025 11:26 AM EDT Prescription Refill Information The patient has been identified by name and date of : Yes Caregiver verified no other encounters exist for this prescription request: Yes Caregiver confirmed with patient/requestor that no other refills are due, in the near future, with this provider at this time: Yes The last office visit in the department: Does the patient have a future office visit with this provider/department: Yes Requested Prescriptions Pending Prescriptions Disp Refills blood sugar diagnostic (BLOOD GLUCOSE TEST) test strip 200 strip 11 Sig: Test blood sugar(s) 4 times daily. Dx: Type 2 DM - Controlled E11.9 Insulin: Yes Vanessa Hinkle January 19, 2025 11:26 AM [facility]04-18-2025 Miscellaneous Notes* Telephone Encounter - Vanessa Heredia - 01/19/2025 11:26 AM EDT Prescription Refill Information The patient has been identified by name and date of : Yes Caregiver verified no other encounters exist for this prescription request: Yes Caregiver confirmed with patient/requestor that no other refills are due, in the near future, with this provider at this time: Yes The last office visit in the department: Does the patient have a future office visit with this provider/department: Yes Requested Prescriptions Pending Prescriptions Disp Refills blood sugar diagnostic (BLOOD GLUCOSE TEST) test strip 200 strip 11 Sig: Test blood sugar(s) 4 times daily. Dx: Type 2 DM - Controlled E11.9 Insulin: Yes Vanessa Hinkle January 19, 2025 11:26 AM documented in this encounterK[facility]04-07-2025 Telephone encounter Note * Telephone Encounter - Denise Alvarado APRN.CNS - 01/08/2025 4:41 PM EDT ok [facility]04-07-2025 Miscellaneous Notes* Telephone Encounter - Denise Alvarado APRN.CNS - 01/08/2025 4:41 PM EDT ok * Telephone Encounter - Rosa Elena Deluca LPN - 01/08/2025 11:36 AM EDT Prescription Refill Information The patient has been identified by name and date of : Yes Caregiver verified no other encounters exist for this prescription request: Yes Caregiver confirmed with patient/requestor that no other refills are due, in the near future, with this provider at this time: Yes The last office visit in the department: 12/08/24 Does the patient have a future office visit with this provider/department: Yes 01/15/25 Requested Prescriptions Pending Prescriptions Disp Refills HYDROcodone-acetaminophen (NORCO) 5-325 mg per tablet 120 tablet 0 Sig: Take 1 tablet by mouth four times a day as needed for pain for up to 30 days. Short term increase to 4 times daily as needed due to fall/rotator cuff injury Rosa Elena Deluca LPN January 08, 2025 11:36 AM [facility] Telephone encounter Note * Telephone Encounter - Denise Alvarado APRN.CNS - 01/08/2025 4:36 PM EDT ok [facility]04-07-2025 Miscellaneous Notes* Telephone Encounter - Denise Alvarado APRN.CNS - 01/08/2025 4:36 PM EDT ok * Telephone Encounter - Rosa Elena Deluca LPN - 01/08/2025 11:50 AM EDT Prescription Refill Information The patient has been identified by name and date of : Yes Caregiver verified no other encounters exist for this prescription request: Yes Caregiver confirmed with patient/requestor that no other refills are due, in the near future, with this provider at this time: Yes The last office visit in the department: 12/08/24 Does the patient have a future office visit with this provider/department: Yes 01/15/25 Requested Prescriptions Pending Prescriptions Disp Refills gabapentin (NEURONTIN) 800 mg tablet 90 tablet 2 Sig: Take 1 tablet by mouth three times a day for 90 days. Rosa Elena Deluca LPN January 08, 2025 11:51 AM documented in [facility] Telephone encounter Note * Telephone Encounter - Rosa Elena Deluca LPN - 01/08/2025 11:51 AM EDT Please note that the potassium and metolazone is only 5 tablets. Unsure if this should stay at 5 tablets? Prescription Refill Information The patient has been identified by name and date of : Yes Caregiver verified no other encounters exist for this prescription request: Yes Caregiver confirmed with patient/requestor that no other refills are due, in the near future, with this provider at this time: Yes The last office visit in the department: 12/08/24 Does the patient have a future office visit with this provider/department: Yes 01/15/25 Requested Prescriptions Pending Prescriptions Disp Refills blood sugar diagnostic (FREESTYLE LITE STRIPS) test strip 400 strip 1 Sig: Test blood sugar(s) 4 times daily. Dx: Other DM Code E11.40 Insulin: Yes potassium chloride (K-TAB) 10 mEq tablet 5 tablet 1 Sig: Take 1 tablet by mouth once daily. metOLazone (ZAROXOLYN) 10 mg tablet 5 tablet 1 Sig: Take 1 tablet by mouth once daily for 10 days. Rosa Elena Deluca LPN January 08, 2025 11:54 AM [facility]04-07-2025 Miscellaneous Notes* Telephone Encounter - Rosa Elena Deluca LPN - 01/08/2025 11:51 AM EDT Please note that the potassium and metolazone is only 5 tablets. Unsure if this should stay at 5 tablets? Prescription Refill Information The patient has been identified by name and date of : Yes Caregiver verified no other encounters exist for this prescription request: Yes Caregiver confirmed with patient/requestor that no other refills are due, in the near future, with this provider at this time: Yes The last office visit in the department: 12/08/24 Does the patient have a future office visit with this provider/department: Yes 01/15/25 Requested Prescriptions Pending Prescriptions Disp Refills blood sugar diagnostic (FREESTYLE LITE STRIPS) test strip 400 strip 1 Sig: Test blood sugar(s) 4 times daily. Dx: Other DM Code E11.40 Insulin: Yes potassium chloride (K-TAB) 10 mEq tablet 5 tablet 1 Sig: Take 1 tablet by mouth once daily. metOLazone (ZAROXOLYN) 10 mg tablet 5 tablet 1 Sig: Take 1 tablet by mouth once daily for 10 days. Rosa Elena Deluca LPN January 08, 2025 11:54 AM documented in this encounterK[facility]04[facility] Telephone encounter Note * Telephone Encounter - Rosa Elena Deluca LPN - 01/08/2025 11:50 AM EDT Prescription Refill Information The patient has been identified by name and date of : Yes Caregiver verified no other encounters exist for this prescription request: Yes Caregiver confirmed with patient/requestor that no other refills are due, in the near future, with this provider at this time: Yes The last office visit in the department: 12/08/24 Does the patient have a future office visit with this provider/department: Yes 01/15/25 Requested Prescriptions Pending Prescriptions Disp Refills gabapentin (NEURONTIN) 800 mg tablet 90 tablet 2 Sig: Take 1 tablet by mouth three times a day for 90 days. Rosa Elena Deluca LPN January 08, 2025 11:51 AM [facility]04-07-[facility] Telephone encounter Note* Telephone Encounter - Rosa Elena Deluca LPN - 01/08/2025 11:36 AM EDT Prescription Refill Information The patient has been identified by name and date of : Yes Caregiver verified no other encounters exist for this prescription request: Yes Caregiver confirmed with patient/requestor that no other refills are due, in the near future, with this provider at this time: Yes The last office visit in the department: 12/08/24 Does the patient have a future office visit with this provider/department: Yes 01/15/25 Requested Prescriptions Pending Prescriptions Disp Refills HYDROcodone-acetaminophen (NORCO) 5-325 mg per tablet 120 tablet 0 Sig: Take 1 tablet by mouth four times a day as needed for pain for up to 30 days. Short term increase to 4 times daily as needed due to fall/rotator cuff injury Rosa Elena Deluca LPN January 08, 2025 11:36 AM T [facility]03-[facility] Telephone encounter Note* Telephone Encounter - Almita Quinteros - 12/25/2024 10:21 AM EDT Patient has been identified by name and date of : Yes, Provider Taylor Adams Date 12/25/24 Time 10:30 am Patient phones for refill(s): Requested Prescriptions Pending Prescriptions Disp Refills potassium chloride (K-TAB) 10 mEq tablet 5 tablet 1 Sig: Take 1 tablet by mouth once daily. metOLazone (ZAROXOLYN) 10 mg tablet 5 tablet 1 Sig: Take 1 tablet by mouth once daily for 10 days. Date of last office visit in primary care: 11/28/24 Date of next office visit in primary care: 01/19/25 Pharmacy verified Please advise. Thank you. Almita Quinteros. T [facility]03-24-2025 Miscellaneous Notes* Telephone Encounter - Almita Quinteros - 12/25/2024 10:21 AM EDT Patient has been identified by name and date of : Yes, Provider Taylor Adams Date 12/25/24 Time 10:30 am Patient phones for refill(s): Requested Prescriptions Pending Prescriptions Disp Refills potassium chloride (K-TAB) 10 mEq tablet 5 tablet 1 Sig: Take 1 tablet by mouth once daily. metOLazone (ZAROXOLYN) 10 mg tablet 5 tablet 1 Sig: Take 1 tablet by mouth once daily for 10 days. Date of last office visit in primary care: 11/28/24 Date of next office visit in primary care: 01/19/25 Pharmacy verified Please advise. Thank you. Almita Quinteros. documented in this encounterK[facility]03-[facility] Telephone encounter Note * Telephone Encounter - Rosa Elena Deluca LPN - 12/15/2024 10:44 AM EDT Our records indicate that there is a current script on file at the [facility] pharmacy. Please contact pharmacy to request a refill. Detailed message left for patient explaining the above. [facility] Miscellaneous Notes* Telephone Encounter - Rosa Elena Deluca LPN - 12/15/2024 10:44 AM EDT Our records indicate that there is a current script on file at the [facility] pharmacy. Please contact pharmacy to request a refill. Detailed message left for patient explaining the above. * Telephone Encounter - Arlene Moses - 12/14/2024 6:16 PM EDT Prescription Refill Information The patient has been identified by name and date of : Yes Caregiver verified no other encounters exist for this prescription request: Yes Caregiver confirmed with patient/requestor that no other refills are due, in the near future, with this provider at this time: Yes The last office visit in the department: 12/09/51 Does the patient have a future office visit with this provider/department: Yes Requested Prescriptions Pending Prescriptions Disp Refills insulin degludec (TRESIBA FLEXTOUCH U-200) 200 unit/mL (3 mL) injection Sig: Inject 80 Units subcutaneously daily at bedtime. Arlene Moses December 14, 2024 6:17 PM documented in this encounterK[facility]03-[facility]-2025 Telephone encounter Note * Telephone Encounter - Arlene Moses - 12/14/2024 6:16 PM EDT Prescription Refill Information The patient has been identified by name and date of : Yes Caregiver verified no other encounters exist for this prescription request: Yes Caregiver confirmed with patient/requestor that no other refills are due, in the near future, with this provider at this time: Yes The last office visit in the department: 12/09/51 Does the patient have a future office visit with this provider/department: Yes Requested Prescriptions Pending Prescriptions Disp Refills insulin degludec (TRESIBA FLEXTOUCH U-200) 200 unit/mL (3 mL) injection Sig: Inject 80 Units subcutaneously daily at bedtime. Arlene Moses December 14, 2024 6:17 PM [facility]03-13-2025 Progress note* Result Encounter Note - Denise Alvarado APRN.CNS - 12/14/2024 8:17 AM EDT addressed OV [facility]03-13-2025 Miscellaneous Notes* Result Encounter Note - Denise Alvarado APRN.CNS - 12/14/2024 8:17 AM EDT addressed OV documented in this encounterK[facility]03-11-2025 Telephone encounter Note * Telephone Encounter - Chet Webster LPN - 12/12/2024 3:57 PM EDT Called and was unable to leave message, the mailbox is full. Will send information via [employer]. Chet Webster LPN December 12, 2024 3:58 PM [facility]03-11-2025 Miscellaneous Notes* Telephone Encounter - Chet Webster LPN - 12/12/2024 3:57 PM EDT Called and was unable to leave message, the mailbox is full. Will send information via [employer]. Chet Webster LPN December 12, 2024 3:58 PM * Telephone Encounter - Sally Villa MD - 12/11/2024 5:20 PM EDT Please ask patient to follow up with pcp team. She does not have neprotic syndrome but lot of protein leak from sugars not being well controlled Would advice her to improve her sugar control Sally Griffin MD documented in this encounterK[facility]03-10-2025 Telephone encounter Note * Telephone Encounter - Sally Villa MD - 12/11/2024 5:20 PM EDT Please ask patient to follow up with pcp team. She does not have neprotic syndrome but lot of protein leak from sugars not being well controlled Would advice her to improve her sugar control Sally Griffin MD [facility]03-10-2025 Telephone encounter Note* Telephone Encounter - Rosana Ascencio MA - 12/11/2024 11:35 AM EDT Images from the original note were not included. Approved till 12/2025 and patient was notified Rosana Ascencio MA [facility]03-10-2025 Miscellaneous Notes* Telephone Encounter - Rosana Ascencio MA - 12/11/2024 11:35 AM EDT Images from the original note were not included. Approved till 12/2025 and patient was notified Rosana Ascencio MA * Telephone Encounter - Rosana Ascencio MA - 12/11/2024 11:05 AM EDT Prior Authorization has been completed online at [employer] for Almita, will await response. FONTANEZ- BTRJYBHG Please keep encounter open until final decision has been received and documented from insurance company. Rosana Ascencio MA * Telephone Encounter - Sadie Perez - 12/11/2024 8:40 AM EDT Samantha is calling Sarina Adams MD today to request Insurance Authorization, she is out of medication. Disp Refills Start End insulin degludec (TRESIBA FLEXTOUCH U-200) 200 unit/mL (3 mL) injection 18 mL 5 12/08/2024 -- Sig: Inject 80 Units subcutaneously daily at bedtime. Sent to pharmacy as: insulin degludec (TRESIBA FLEXTOUCH U-200) 200 unit/mL (3 mL) injection Class: Normal Route: SUBCUTANEOUS Order: [id number] E-Prescribing Status: Receipt confirmed by pharmacy (12/08/2024 2:54 PM EST) Prior authorization: Closed - Other Per Pharmacy, they told patient this medication requires prior authorization, please call insurance. Patient is requesting a follow up call regarding this. Patient has been identified by name and birthdate. Duration of symptoms: N/A Person calling: self Call patient at: on cell [phone] (home) [phone] (cell) Was an appointment scheduled: No Closing statement: Prior Authorization Calls: Thank you for calling [facility], your call will be returned within the next 24 hours or next business day. Sadie Hinkle documented in this encounterK[facility]03-10-2025 Telephone encounter Note * Telephone Encounter - Rosana Ascencio MA - 12/11/2024 11:05 AM EDT Prior Authorization has been completed online at [employer] for [place], will await response. [employer]- BTRJYBHG Please keep encounter open until final decision has been received and documented from insurance company. Rosana Ascencio MA [facility]03-10-2025 Telephone encounter Note* Telephone Encounter - [place] Sadie Hinkle - 12/11/2024 8:45 AM EDT Prescription Refill Information The patient has been identified by name and date of : Yes Caregiver verified no other encounters exist for this prescription request: Yes Caregiver confirmed with patient/requestor that no other refills are due, in the near future, with this provider at this time: Yes The last office visit in the department: 12/08/24 Does the patient have a future office visit with this provider/department: Yes Requested Prescriptions Pending Prescriptions Disp Refills blood sugar diagnostic (FREESTYLE LITE STRIPS) test strip 400 Strip 1 Sig: Test blood sugar(s) 4 times daily. Dx: Other DM Code E11.40 Insulin: Yes Per patient, she is out of test strips and she is testing 4 times per day. Please send today. Sadie Guevara [facility] December 11, 2024 8:46 AM [facility]03-10-2025 Miscellaneous Notes* Telephone Encounter - [place] Sadie Hinkle - 12/11/2024 8:45 AM EDT Prescription Refill Information The patient has been identified by name and date of : Yes Caregiver verified no other encounters exist for this prescription request: Yes Caregiver confirmed with patient/requestor that no other refills are due, in the near future, with this provider at this time: Yes The last office visit in the department: 12/08/24 Does the patient have a future office visit with this provider/department: Yes Requested Prescriptions Pending Prescriptions Disp Refills blood sugar diagnostic (FREESTYLE LITE STRIPS) test strip 400 Strip 1 Sig: Test blood sugar(s) 4 times daily. Dx: Other DM Code E11.40 Insulin: Yes Per patient, she is out of test strips and she is testing 4 times per day. Please send today. Sadie Hinkle December 11, 2024 8:46 AM documented in this encounterK[facility]03-10-2025 Telephone encounter Note * Telephone Encounter - Sadie Perez - 12/11/2024 8:40 AM EDT Samantha is calling Sarina Adams MD today to request Insurance Authorization, she is out of medication. Disp Refills Start End insulin degludec (TRESIBA FLEXTOUCH U-200) 200 unit/mL (3 mL) injection 18 mL 5 12/08/2024 -- Sig: Inject 80 Units subcutaneously daily at bedtime. Sent to pharmacy as: insulin degludec (TRESIBA FLEXTOUCH U-200) 200 unit/mL (3 mL) injection Class: Normal Route: SUBCUTANEOUS Order: [id number] E-Prescribing Status: Receipt confirmed by pharmacy (12/08/2024 2:54 PM EST) Prior authorization: Closed - Other Per Pharmacy, they told patient this medication requires prior authorization, please call insurance. Patient is requesting a follow up call regarding this. Patient has been identified by name and birthdate. Duration of symptoms: N/A Person calling: self Call patient at: on cell [phone] (home) [phone] (cell) Was an appointment scheduled: No Closing statement: Prior Authorization Calls: Thank you for calling [facility], your call will be returned within the next 24 hours or next business day. Sadie Hinkle [facility]03-07-2025 NoteHNO ID: [id number] Author: MAYLIN DELANEY LPN Service: ? Author Type: LICENSED NURSE Type: Progress Notes Filed: 12/08/2024 16:42 Note Text: Pt was seen today and DM reviewed.[facility]03-07-[facility] History of Present illness Narrative* Maylin Delaney LPN - 12/08/2024 4:41 PM EST Pt was seen today and DM reviewed. * Maylin Delaney LPN - 11/24/2024 11:49 AM EST Pt's last A1c was 10/16/24 9.2. pt did have insurance issues. As in Dr. Adams wasn't in network in Oct 2024. Pt has appt for ER f/u with Dr. Villa 11/28/24. documented in this encounterK[facility]03-07-2025 Instructions* Patient Instructions* Denise Alvarado APRN.CNS - 12/08/2024 2:55 PM EST Be sure to take your levothyroxine two 150 mcg daily Check your thyroid levels in 6 weeks at the lab OK to refill the metaxalone (water pill) documented in this encounterK[facility]03-[facility]-2025 History of Present illness Narrative* Denise Alvarado APRN.CNS - 12/08/2024 2:00 PM EST Subjective ?Quick Links Last Note in Specialty Snapshot Patient ID: Samantha is a 59 year old female who presents for No chief complaint on file.. HPI Presents for recheck of leg swelling. Lst seen 11/28/[address] Villa. with uncontrolled diabetes and neuropathy, myasthenia gravis, essential hypertension hyperlipidemiareflux disease who presents today for bilateral leg swelling. Lab work completed and showed elevated TSH. Review of outside medications shows a refill of levothyroxine in April, the next refill was in November. She states she may have been out of medication for period of time. Notes the water pill given to her by Dr. Tony velazquez. She notes stable shortness of breath. ?Quick Review Review Full History Full Problem List Meds - metOLazone (ZAROXOLYN) 10 mg tablet potassium chloride (K-TAB) 10 mEq tablet furosemide (LASIX) 40 mg tablet levothyroxine (SYNTHROID) 150 mcg tablet HYDROcodone-acetaminophen (NORCO) 5-325 mg per tablet gabapentin (NEURONTIN) 800 mg tablet flash glucose sensor (FREESTYLE TAYLOR 14 DAY SENSOR) kit gabapentin (NEURONTIN) 600 mg tablet dulaglutide (TRULICITY) 4.5 mg/0.5 mL pen injector omeprazole (PRILOSEC) 40 mg capsule meloxicam (MOBIC) 15 mg tablet keTORolac (ACULAR) 0.5 % ophthalmic solution prednisoLONE acetate (PRED FORTE) 1 % ophthalmic suspension promethazine (PHENERGAN) 25 mg tablet empagliflozin (JARDIANCE) 25 mg tablet lisinopril 2.5 mg tablet insulin aspart U-100 (NOVOLOG) 100 unit/mL (3 mL) insulin degludec (TRESIBA FLEXTOUCH U-200) 200 unit/mL (3 mL) injection blood sugar diagnostic (FREESTYLE LITE STRIPS) test strip dicyclomine (BENTYL) 10 mg capsule Fenofibrate (LOFIBRA) 160 mg tablet rosuvastatin (CRESTOR) 10 mg tablet hydrOXYzine HCl (ATARAX) 25 mg tablet Insulin [place], Disposable, (DROPLET PEN NEEDLE) 31 gauge x 3/16 fluticasone (FLONASE) 50 mcg/actuation nasal spray PEG 400-propylene glycol (SYSTANE ULTRA) 0.4-0.3 % ophthalmic solution Cholecalciferol, Vitamin D3, 125 mcg (5,000 unit) cap blood sugar diagnostic (BLOOD GLUCOSE TEST) test strip blood sugar diagnostic (BLOOD GLUCOSE TEST) test strip OXYGEN, HOME THERAPY, Blood-Glucose Meter monitoring kit Lancets lancets [employer] (BLOOD PRESSURE CUFF) flash glucose scanning reader (FREESTYLE TAYLOR 14 DAY READER) estradiol (ESTRACE) 0.01 % (0.1 mg/gram) vaginal cream --- PMH - Chronic hypoxemic respiratory failure (HCC) COVID-19 HTN (hypertension) Hyperlipidemia Hypothyroid Kidney stone on left side Myasthenia gravis (HCC) OA (osteoarthritis) of hip, bilateral Type II or unspecified type diabetes mellitus without mention of complication, uncontrolled : Objective ?Quick Links Labs Imaging Results Review ?? Avoid pulling in long tables of results. Comment on relevant results to support your medical decision making. : LMP 04/27/2016 Physical Exam Vitals and nursing note reviewed. Constitutional: Appearance: Normal appearance. HENT: Head: Normocephalic. Eyes: Conjunctiva/sclera: Conjunctivae normal. Cardiovascular: Rate and Rhythm: Normal rate and regular rhythm. Heart sounds: Normal heart sounds. Pulmonary: Effort: Pulmonary effort is normal. Breath sounds: Normal breath sounds. Abdominal: General: Bowel sounds are normal. Palpations: Abdomen is soft. Musculoskeletal: Right lower leg: Edema (1+) present. Left lower leg: Edema (1+) present. Skin: General: Skin is warm and dry. Neurological: Mental Status: She is alert. Mental status is at baseline. Latest Ref Rn 12/06/2024 WBC 3.70 - 11.00 k/uL 5.33 RBC 3.90 - 5.20 m/uL 4.00 Hemoglobin 11.5 - 15.5 g/dL 11.4 (L) Hematocrit 36.0 - 46.0 % 36.7 MCV 80.0 - 100.0 fL 91.8 MCH 26.0 - 34.0 pg 28.5 MCHC 30.5 - 36.0 g/dL 31.1 RDW-CV 11.5 - 15.0 % 14.3 Platelet Count 150 - 400 k/uL 133 (L) MPV 9.0 - 12.7 fL 11.9 Neut% % 63.9 Abs Neut (ANC) 1.45 - 7.50 k/uL 3.41 Lymph% % 22.3 Abs Lymph 1.00 - 4.00 k/uL 1.19 [place]% % 8.1 Abs [place] <0.87 k/uL 0.43 Eosin% % 4.5 Abs Eosin <0.46 k/uL 0.24 Baso% % 0.4 Abs Baso <0.11 k/uL <0.03 Immature Gran % % 0.8 IMMATURE GRANS (ABS) <0.10 k/uL 0.04 NRBC /100 WBC 0.0 Absolute nRBC <0.01 k/uL <0.01 DTYPE Auto Color Yellow Yellow Clarity Clear Clear Glucose, Urine Negative 3+ ! Bilirubin, Urine Negative Negative Ketones, Urine Negative Negative Specific [place], Ur 1.005 - 1.030 1.025 Hemoglobin/Blood,Ur Negative Trace ! pH, Urine <8.5 7.0 Protein, Urine Negative 3+ ! Urobilinogen 0.2-1.0 EU/dL 0.2 EU/dL Nitrites Negative Negative Leukest Negative Negative WBC, Urine 0-5 /HPF 6-10 /HPF ! RBC, Urine 0-2 /HPF 0-2 /HPF Bacteria Negative /HPF Negative Epithelial Cells /HPF None Seen Hyaline Cast 0 /LPF 0 /LPF Protein, Total 6.3 - 8.0 g/dL 6.4 Albumin 3.9 - 4.9 g/dL 3.5 (L) Calcium 8.5 - 10.2 mg/dL 8.9 Bilirubin, Total 0.2 - 1.3 mg/dL <0.2 (L) Alkaline Phosphatase 34 - 123 U/L 76 AST 13 - 35 U/L 27 ALT 7 - 38 U/L 30 Glucose 74 - 99 mg/dL 145 (H) BUN 7 - 21 mg/dL 41 (H) Creatinine 0.58 - 0.96 mg/dL 1.39 (H) Sodium 136 - 144 mmol/L 139 Potassium 3.7 - 5.1 mmol/L 3.9 Chloride 98 - 107 mmol/L 100 CO2 22 - 30 mmol/L 33 (H) Anion Gap 8 - 15 mmol/L 6 (L) eGFR >=60 mL/min/1.73m 44 (L) Cholesterol, Total <200 mg/dL 209 (H) Triglyceride <150 mg/dL 224 (H) HDL Cholesterol >39 mg/dL 61 Non HDL Cholesterol <130 mg/dL 148 (H) Fasting Time hrs 12 VLDL Cholesterol <30 mg/dL 45 (H) TC:HDL Ratio <5.10 3.43 LDL Cholesterol <100 mg/dL 103 (H) LDL:HDL Ratio <2.54 1.69 TSH 0.270 - 4.200 mIU/L 116.000 (H) Assessment & Plan Acquired hypothyroidism Orders: levothyroxine (SYNTHROID) 150 mcg tablet; Take 2 tablets by mouth once daily. TSH W/REFLEX FT4; Future Chronic midline low back pain, unspecified whether sciatica present Orders: HYDROcodone-acetaminophen (NORCO) 5-325 mg per tablet; Take 1 tablet by mouth four times a day as needed for pain for up to 30 days. Short term increase to 4 times daily as needed due to fall/rotatorcuff injury Patient should start on December 10, 2024. Chronic SI joint pain Orders: HYDROcodone-acetaminophen (NORCO) 5-325 mg per tablet; Take 1 tablet by mouth four times a day as needed for pain for up to 30 days. Short term increase to 4 times daily as needed due to fall/rotatorcuff injury Patient should start on December 10, 2024. 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) Orders: insulin degludec (TRESIBA FLEXTOUCH U-200) 200 unit/mL (3 mL) injection; Inject 80 Units subcutaneously daily at bedtime. She has uncontrolled hypothyroidism appears she was on a medication for some period of time. Recommend resuming at 300 mcg daily. Check TSH and T4 in 6 weeks. 6 week follow up OV. May refill metolazone if needed however BUN and creatinine were increased. Lower extremity edema is reduced currently but present. She is managing her own medications in a pill dispenser. Consider pill pack or similar at upcoming visit. Medical Decision Making: Problems: Moderate: 1+ chronic illnesses with change Data: Unique test result(s) reviewed: 3+ Risk: Moderate: Drug management Medical Decision Making Level: 4 - Moderate documented in this encounterK[facility]25 NoteHNO ID: [id number] Author: DENISE ALVARADO APRN.ROLF Service: ? Author Type: Nurse Specialist Type: Progress Notes Filed: 12/08/2024 15:02 Note Text: Subjective ?Quick Links Last Note in Specialty Snapshot Patient ID: Samantha is a 59 year old female who presents for No chief complaint on file.. HPI Presents for recheck of leg swelling. Lst seen 11/28/[address] Villa. with uncontrolled diabetes and neuropathy, myasthenia gravis, essential hypertension hyperlipidemia reflux disease who presents today for bilateral leg swelling. Lab work completed and showed elevated TSH. Review of outside medications shows a refill of levothyroxine in April, the next refill was in November. She states she may have been out of medication for period of time. Notes the water pill given to her by Dr. Tony velazquez. She notes stable shortness of breath. ?Quick Review Review Full History Full Problem List Meds - metOLazone (ZAROXOLYN) 10 mg tablet potassium chloride (K-TAB) 10 mEq tablet furosemide (LASIX) 40 mg tablet levothyroxine (SYNTHROID) 150 mcg tablet HYDROcodone-acetaminophen (NORCO) 5-325 mg per tablet gabapentin (NEURONTIN) 800 mg tablet flash glucose sensor (FREESTYLE TAYLOR 14 DAY SENSOR) kit gabapentin (NEURONTIN) 600 mg tablet dulaglutide (TRULICITY) 4.5 mg/0.5 mL pen injector omeprazole (PRILOSEC) 40 mg capsule meloxicam (MOBIC) 15 mg tablet keTORolac (ACULAR) 0.5 % ophthalmic solution prednisoLONE acetate (PRED FORTE) 1 % ophthalmic suspension promethazine (PHENERGAN) 25 mg tablet empagliflozin (JARDIANCE) 25 mg tablet lisinopril 2.5 mg tablet insulin aspart U-100 (NOVOLOG) 100 unit/mL (3 mL) insulin degludec (TRESIBA FLEXTOUCH U-200) 200 unit/mL (3 mL) injection blood sugar diagnostic (FREESTYLE LITE STRIPS) test strip dicyclomine (BENTYL) 10 mg capsule Fenofibrate (LOFIBRA) 160 mg tablet rosuvastatin (CRESTOR) 10 mg tablet hydrOXYzine HCl (ATARAX) 25 mg tablet Insulin [place], Disposable, (DROPLET PEN NEEDLE) 31 gauge x 3/16 fluticasone (FLONASE) 50 mcg/actuation nasal spray PEG 400-propylene glycol (SYSTANE ULTRA) 0.4-0.3 % ophthalmic solution Cholecalciferol, Vitamin D3, 125 mcg (5,000 unit) cap blood sugar diagnostic (BLOOD GLUCOSE TEST) test strip blood sugar diagnostic (BLOOD GLUCOSE TEST) test strip OXYGEN, HOME THERAPY, Blood-Glucose Meter monitoring kit Lancets lancets Miscellaneous Medical Supply (BLOOD PRESSURE CUFF) flash glucose scanning reader (FREESTYLE TAYLOR 14 DAY READER) estradiol (ESTRACE) 0.01 % (0.1 mg/gram) vaginal cream --- PMH - Chronic hypoxemic respiratory failure (HCC) COVID-19 HTN (hypertension) Hyperlipidemia Hypothyroid Kidney stone on left side Myasthenia gravis (HCC) OA (osteoarthritis) of hip, bilateral Type II or unspecified type diabetes mellitus without mention of complication, uncontrolled : Objective ?Quick Links Labs Imaging Results Review ?? Avoid pulling in long tables of results. Comment on relevant results to support your medical decision making. : LMP 04/27/2016 Physical Exam Vitals and nursing note reviewed. Constitutional: Appearance: Normal appearance. HENT: Head: Normocephalic. Eyes: Conjunctiva/sclera: Conjunctivae normal. Cardiovascular: Rate and Rhythm: Normal rate and regular rhythm. Heart sounds: Normal heart sounds. Pulmonary: Effort: Pulmonary effort is normal. Breath sounds: Normal breath sounds. Abdominal: General: Bowel sounds are normal. Palpations: Abdomen is soft. Musculoskeletal: Right lower leg: Edema (1+) present. Left lower leg: Edema (1+) present. Skin: General: Skin is warm and dry. Neurological: Mental Status: She is alert. Mental status is at baseline. Latest Ref [facility] 12/06/2024 WBC 3.70 - 11.00 k/uL 5.33 RBC 3.90 - 5.20 m/uL 4.00 Hemoglobin 11.5 - 15.5 g/dL 11.4 (L) Hematocrit 36.0 - 46.0 % 36.7 MCV 80.0 - 100.0 fL 91.8 MCH 26.0 - 34.0 pg 28.5 MCHC 30.5 - 36.0 g/dL 31.1 RDW-CV 11.5 - 15.0 % 14.3 Platelet Count 150 - 400 k/uL 133 (L) MPV 9.0 - 12.7 fL 11.9 Neut% % 63.9 Abs Neut (ANC) 1.45 - 7.50 k/uL 3.41 Lymph% % 22.3 Abs Lymph 1.00 - 4.00 k/uL 1.19 [place]% % 8.1 Abs [place] <0.87 k/uL 0.43 Eosin% % 4.5 Abs Eosin <0.46 k/uL 0.24 Baso% % 0.4 Abs Baso <0.11 k/uL <0.03 Immature Gran % % 0.8 IMMATURE GRANS (ABS) <0.10 k/uL 0.04 NRBC /100 WBC 0.0 Absolute nRBC <0.01 k/uL <0.01 DTYPE Auto Color Yellow Yellow Clarity Clear Clear Glucose, Urine Negative 3+ ! Bilirubin, Urine Negative Negative Ketones, Urine Negative Negative Specific [place], Ur 1.005 - 1.030 1.025 Hemoglobin/Blood,Ur Negative Trace ! pH, Urine <8.5 7.0 Protein, Urine Negative 3+ ! Urobilinogen 0.2-1.0 EU/dL 0.2 EU/dL Nitrites Negative Negative Leukest Negative Negative WBC, Urine 0-5 /HPF 6-10 /HPF ! RBC, Urine 0-2 /HPF 0-2 /HPF Bacteria Negative /HPF Negative Epithelial Cells /HPF None Seen Hyaline Cast 0 /LPF 0 /LP (more content not included)...[facility]03-05-2025 NoteHNO ID: [id number] Author: BROOKE BE PA-C Service: ? Author Type: Physician Carbide Grinder Type: Progress Notes Filed: 12/06/2024 14:53 Note Text: Patient: Samantha Romero PCP: Sarina Adams MD CC: follow up HPI: Samantha Romero 59 year old female 58 year old female former smoker, 30 pack years (quitting 2013) with PMH significant for HTN, DM, hypothyroidism, HTN, myasthenia gravis, and history of Covid pna 07/2021. Required HFNC, dex/remdesivir/baricitinib and 4L supplemental oxygen at discharge. Based on last oximetry with ambulation patient required 2L supplemental oxygen. Today, patient denies cough, sputum production, hemoptysis or wheezing. She has exertional dyspnea, stable. No fevers, chills or night sweats. Currently wearing 2L supplemental oxygen during the day and 4L at night. When she takes her oxygen off she feels chest pressure and tightness. PAST MEDICAL HISTORY Diagnosis Date Chronic hypoxemic respiratory failure (HCC) COVID-19 07/06/2021 HTN (hypertension) Hyperlipidemia 04/05/2014 Hypothyroid 04/19/2014 Kidney stone on left side 04/12/2014 Myasthenia gravis (HCC) OA (osteoarthritis) of hip, bilateral 04/04/2014 Type II or unspecified type diabetes mellitus without mention of complication, uncontrolled 04/05/2014 Allergies: Metformin Diarrhea Comment:Diarrhea every time takes, even with ER dose Oxycodone GI Upset Percocet [Oxycodone* GI Upset Comment:and off balance metOLazone (ZAROXOLYN) 10 mg tablet Take 1 tablet by mouth once daily for 10 days. potassium chloride (K-TAB) 10 mEq tablet Take 1 tablet by mouth once daily. furosemide (LASIX) 40 mg tablet Take 1 tablet by mouth two times a day. levothyroxine (SYNTHROID) 150 mcg tablet Take 2 tablets by mouth once daily. gabapentin (NEURONTIN) 800 mg tablet Take 1 tablet by mouth three times a day for 90 days. dulaglutide (TRULICITY) 4.5 mg/0.5 mL pen injector Inject 4.5 mg subcutaneously one time a week. omeprazole (PRILOSEC) 40 mg capsule Take 1 capsule by mouth once daily. empagliflozin (JARDIANCE) 25 mg tablet Take 1 tablet by mouth daily with breakfast. ON HOLD FOLLOWING HOSPITAL DISCHARGE 04/2024 lisinopril 2.5 mg tablet Take 1 tablet by mouth once daily. ON HOLD FOLLOWING HOSPITAL DISCHARGE 04/2024 insulin aspart U-100 (NOVOLOG) 100 unit/mL (3 mL) INJECT 20 UNITS SUBCUTANEOUSLY WITH MEALS THREE TIMES A DAY PLUS SLIDING SCALE #2 (add 2 units for every 50 points above 150 mg/dl) BASED ON PRE-MEAL BLOOD SUGAR (MAX: 96 UNITS PER DAY) insulin degludec (TRESIBA FLEXTOUCH U-200) 200 unit/mL (3 mL) injection Inject 80 Units subcutaneously daily at bedtime. Fenofibrate (LOFIBRA) 160 mg tablet Take 1 tablet by mouth once daily. Insulin [place], Disposable, (DROPLET PEN NEEDLE) 31 gauge x 3/16 use 1 PEN NEEDLE to inject MEDICATION subcutaneously four times a day fluticasone (FLONASE) 50 mcg/actuation nasal spray Use 1-2 Sprays in each nostril once daily as needed. HYDROcodone-acetaminophen (NORCO) 5-325 mg per tablet Take 1 tablet by mouth four times a day as needed for pain for up to 30 days. Short term increase to 4 times daily as needed due to fall/rotator cuff injury Patient should start on November 10, 2024. flash glucose sensor (FREESTYLE TAYLOR 14 DAY SENSOR) kit Use to check blood sugar 4 times daily. Please give 2 sensors per refill gabapentin (NEURONTIN) 600 mg tablet Take 1 tablet by mouth three times a day for 90 days. (Patient taking differently: Take 800 mg by mouth three times a day.) meloxicam (MOBIC) 15 mg tablet Take 1 tablet by mouth once daily as needed for pain. With food. keTORolac (ACULAR) 0.5 % ophthalmic solution EVERY 6 HOURS prednisoLONE acetate (PRED FORTE) 1 % ophthalmic suspension EVERY 6 HOURS promethazine (PHENERGAN) 25 mg tablet Take 25 mg by mouth every 6 hours as needed. blood sugar diagnostic (FREESTYLE LITE STRIPS) test strip Test blood sugar(s) 4 times daily. Dx: Other DM Code E11.40 Insulin: Yes dicyclomine (BENTYL) 10 mg capsule Take 1 capsule by mouth before meals and at bedtime. for abdominal pain rosuvastatin (CRESTOR) 10 mg tablet Take 1 tablet by mouth daily at bedtime. hydrOXYzine HCl (ATARAX) 25 mg tablet Take 1-2 tablets by mouth at bedtime as needed. PEG 400-propylene glycol (SYSTANE ULTRA) 0.4-0.3 % ophthalmic solution Use 1 Drop in both eyes four times daily. Cholecalciferol, Vitamin D3, 125 mcg (5,000 unit) cap Take 1 capsule by mouth once daily. blood sugar diagnostic (BLOOD GLUCOSE TEST) test strip Test blood sugar(s) 4 times daily. Dx: Other DM Code E11.40 Insulin: Yes (Patient not taking: Reported on 11/28/2024) blood sugar diagnostic (BLOOD GLUCOSE TEST) test strip Test blood sugar(s) 4 times daily. Dx: Type 2 DM - Controlled E11.9 Insulin: Yes OXYGEN, HOME THERAPY, Inhale as instructed as directed. Uses at 2 l/m via nasal cannula during the day and 4 l/m at night Blood-Glucose Meter mon (more content not included)...[facility] 12-06-2024 History of Present illness Narrative* Brooke Be PA-C - 12/06/2024 2:04 PM EST Patient: Samantha Romero PCP: Sarina Adams MD CC: follow up HPI: Samantha Romero 59 year old female 58 year old female former smoker, 30 pack years (quitting 2013) with PMH significant for HTN, DM, hypothyroidism, HTN, myasthenia gravis, and history of Covid pna07/2021. Required HFNC, dex/remdesivir/baricitinib and 4L supplemental oxygen at discharge. Based on last oximetry with ambulation patient required 2L supplemental oxygen. Today, patient denies cough, sputum production, hemoptysis or wheezing. She has exertional dyspnea,stable. No fevers, chills or night sweats. Currently wearing 2L supplemental oxygen during the day and 4L at night. When she takes her oxygen off she feels chest pressure and tightness. PAST MEDICAL HISTORY Diagnosis Date Chronic hypoxemic respiratory failure (HCC) COVID-19 07/06/2021 HTN (hypertension) Hyperlipidemia 04/05/2014 Hypothyroid 04/19/2014 Kidney stone on left side 04/12/2014 Myasthenia gravis (HCC) OA (osteoarthritis) of hip, bilateral 04/04/2014 Type II or unspecified type diabetes mellitus without mention of complication, uncontrolled 04/05/2014 Allergies: Metformin Diarrhea Comment:Diarrhea every time takes, even with ER dose Oxycodone GI Upset Percocet [Oxycodone* GI Upset Comment:and off balance metOLazone (ZAROXOLYN) 10 mg tablet Take 1 tablet by mouth once daily for 10 days. potassium chloride (K-TAB) 10 mEq tablet Take 1 tablet by mouth once daily. furosemide (LASIX) 40 mg tablet Take 1 tablet by mouth two times a day. levothyroxine (SYNTHROID) 150 mcg tablet Take 2 tablets by mouth once daily. gabapentin (NEURONTIN) 800 mg tablet Take 1 tablet by mouth three times a day for 90 days. dulaglutide (TRULICITY) 4.5 mg/0.5 mL pen injector Inject 4.5 mg subcutaneously one time a week. omeprazole (PRILOSEC) 40 mg capsule Take 1 capsule by mouth once daily. empagliflozin (JARDIANCE) 25 mg tablet Take 1 tablet by mouth daily with breakfast. ON HOLD FOLLOWING HOSPITAL DISCHARGE 04/2024 lisinopril 2.5 mg tablet Take 1 tablet by mouth once daily. ON HOLD FOLLOWING HOSPITAL DISCHARGE 04/2024 insulin aspart U-100 (NOVOLOG) 100 unit/mL (3 mL) INJECT 20 UNITS SUBCUTANEOUSLY WITH MEALS THREE TIMES A DAY PLUS SLIDING SCALE #2 (add 2 units for every 50 points above 150 mg/dl) BASED ON PRE-MEAL BLOOD SUGAR (MAX: 96 UNITS PER DAY) insulin degludec (TRESIBA FLEXTOUCH U-200) 200 unit/mL (3 mL) injection Inject 80 Units subcutaneously daily at bedtime. Fenofibrate (LOFIBRA) 160 mg tablet Take 1 tablet by mouth once daily. Insulin [place], Disposable, (DROPLET PEN NEEDLE) 31 gauge x 3/16 use 1 PEN NEEDLE to inject MEDICATION subcutaneously four times a day fluticasone (FLONASE) 50 mcg/actuation nasal spray Use 1-2 Sprays in each nostril once daily as needed. HYDROcodone-acetaminophen (NORCO) 5-325 mg per tablet Take 1 tablet by mouth four times a day as needed for pain for up to 30 days. Short term increase to 4 times daily as needed due to fall/rotator cuff injury Patient should start on November 10, 2024. flash glucose sensor (FREESTYLE TAYLOR 14 DAY SENSOR) kit Use to check blood sugar 4 times daily. Please give 2 sensors per refill gabapentin (NEURONTIN) 600 mg tablet Take 1 tablet by mouth three times a day for 90 days. (Patienttaking differently: Take 800 mg by mouth three times a day.) meloxicam (MOBIC) 15 mg tablet Take 1 tablet by mouth once daily as needed for pain. With food. keTORolac (ACULAR) 0.5 % ophthalmic solution EVERY 6 HOURS prednisoLONE acetate (PRED FORTE) 1 % ophthalmic suspension EVERY 6 HOURS promethazine (PHENERGAN) 25 mg tablet Take 25 mg by mouth every 6 hours as needed. blood sugar diagnostic (FREESTYLE LITE STRIPS) test strip Test blood sugar(s) 4 times daily. Dx: Other DM Code E11.40 Insulin: Yes dicyclomine (BENTYL) 10 mg capsule Take 1 capsule by mouth before meals and at bedtime. for abdominal pain rosuvastatin (CRESTOR) 10 mg tablet Take 1 tablet by mouth daily at bedtime. hydrOXYzine HCl (ATARAX) 25 mg tablet Take 1-2 tablets by mouth at bedtime as needed. PEG 400-propylene glycol (SYSTANE ULTRA) 0.4-0.3 % ophthalmic solution Use 1 Drop in both eyes fourtimes daily. Cholecalciferol, Vitamin D3, 125 mcg (5,000 unit) cap Take 1 capsule by mouth once daily. blood sugar diagnostic (BLOOD GLUCOSE TEST) test strip Test blood sugar(s) 4 times daily. Dx: OtherDM Code E11.40 Insulin: Yes (Patient not taking: Reported on 11/28/2024) blood sugar diagnostic (BLOOD GLUCOSE TEST) test strip Test blood sugar(s) 4 times daily. Dx: Type 2 DM - Controlled E11.9 Insulin: Yes OXYGEN, HOME THERAPY, Inhale as instructed as directed. Uses at 2 l/m via nasal cannula during the day and 4 l/m at night Blood-Glucose Meter monitoring kit Check sugars daily and as needed (Freestyle Lite is what she hashad) Lancets lancets Test blood sugar(s) 4 times daily. Dx: E11.9 Insulin: Yes Miscellaneous Medical Supply (BLOOD PRESSURE CUFF) 1 Each as needed. Blood pressure Monitor and Cuff, use as directed. Dx: I10 Hypertension flash glucose scanning reader (RedbeaconSTYLE TAYLOR 14 DAY READER) Use to check blood sugar 4 times daily estradiol (ESTRACE) 0.01 % (0.1 mg/gram) vaginal cream Use 3 g vaginally two times a week. Social History Tobacco Use Smoking status: Former Current packs/day: 0.00 Average packs/day: 1 pack/day for 30.0 years (30.0 ttl pk-yrs) Types: Cigarettes Start date: 11/04/1983 Quit date: 11/04/2013 Years since quittin.0 Smokeless tobacco: Never Vaping Use Vaping status: Never Used Substance Use Topics Alcohol use: Not Currently Comment: wine cool every once in a while Drug use: Not Currently Types: Marijuana Family History Problem Relation Age of Onset Diabetes Mother Parkinson s Disease Father Cervical Cancer Sister Diabetes Brother Cancer Maternal Grandmother Stomach CA Breast Cancer Maternal Aunt 50's PAST SURGICAL HISTORY Procedure Laterality Date ESWL 04/25/14 kidney stones ESWL 05/16/14 kidney stones. PAST SURGICAL HISTORY OF c-sections x 2 PAST SURGICAL HISTORY OF appendectomy PAST SURGICAL HISTORY OF tubal ligation REMV CATARACT EXTRACAP,INSERT LENS Left 06/12/2021 Monofocal IOL 17.5 D XCAPSL CTRC RMVL INSJ IO LENS PROSTH W/O ECP Right 05/29/2021 I reviewed the past medical history, family history, social history and surgical history with changes noted above and updated in EMR. IMMUNIZATIONS Immunization History Administered Date(s) Administered pneumococcal polysaccharide (PPV23) vaccine, 23 valent (PNEUMOVAX 23) 04/19/2014 tetanus diphtheria (Td) vaccine, age 7+ yr, 5 Lf tetanus, PF (TENIVAC) 06/25/2015 tetanus diphtheria pertussis (Tdap) vaccine, age 7+ yr (ADACEL, BOOSTRIX) 06/26/2015 Deferred Date(s) Deferred influenza (IIV4) vaccine, age 6 mo - 64 yr, quadrivalent (AFLURIA, FLULAVAL, FLUZONE) 07/22/2023 ROS: All other systems reviewed as negative except for what is noted in HPI and review of systems. PHYSICAL EXAMINATION: BP 122/64 Pulse (P) 86 Resp (P) 14 LMP 04/27/2016 SpO2 (P) 98% O2: 2L NC Gen: No acute distress. Cooperative with examination. Obese. HEENT: Normocephalic. Sclera, conjunctiva clear. Oral hygeine and dentition poor. Resp: No stridor, accessory respiratory muscle use, supra-sternal or intercostal retractions. No wheezes, crackles. CV: Regular rythm. Heart tones normal. Radial pulses normal. Ext: Warm and well perfused. No clubbing, cyanosis. Bilateral lower extremity edema. Skin: No rash, ecchymoses. Neuro: Mental status normal. Affect normal. No tremor. 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 The two largest FEV1s were repeatable. Time to Peak Flow greater than ATS/ERS standard, FEV1 may not be valid. Current ATS/ERS acceptability and repeatability standards for DLCO met with 2 acceptable maneuvers. IMPRESSION: Spirometry is normal. The diffusing capacity (uncorrected for hemoglobin) is reduced. The reduced kCO (DLCO/VA) reflects an alteration of the normal transfer/diffusion of CO from the alveolar regions to the blood. Clinical correlation recommended. Electronically Signed On 05-19-2024 21:32:30 EDT by Rosana Navarro MD ID: [id number] Name: SAMANTHA ROMERO Race: White Ht: 64.37 in Wt: 234.00 lbs Age: 58 Gender: Female : 1965 Dx: Smoking Hx: Non-smoker Doctor: BROOKE BE Test Date: 12/10/2023 Site: Tech: Aby Mancuso PRE-BRONCH POST-BRONCH Pre LLN Pred ULN %Pred Post %Pred %Chg SPIROMETRY FVC (L) 3.19 2.24 3.07 3.92 103 FEV1 (L) 2.81 1.77 2.46 3.10 114 FEV1/FVC 0.88 0.68 0.80 0.90 109 PEF L/s (L/sec) 5.84 4.71 6.44 8.17 90 FEF50 (L/sec) 4.95 1.80 3.41 5.02 145 FIF50 (L/sec) 1.70 FEF50/FIF50 2.91 90-100 FIVC (L) 2.45 YRD47-41 (L/sec) 4.44 1.23 2.37 3.88 187 Time (sec) 6.31 FET PEF (sec) 0.18 MAURO (L) 0.12 Vol Extrap % (%) 4 LUNG DIFFUSION DLCOunc (ml/min/mmHg) 11.71 15.80 21.97 28.14 53 VA (L) 4.04 4.02 5.12 6.23 78 DLunc/VA (ml/min/mmHg/L) 2.90 3.14 4.45 5.77 65 BHT (sec) 11.22 IVC (L) 3.03 Comments: The two largest FVCs were repeatable. The two largest FEV1s were repeatable. Time to Peak Flow greater than ATS/ERS standard, FEV1 may not be valid. Current ATS/ERS acceptability and repeatability standards for DLCO met with [address] Chest other findings: Last CT Chest - Impression Only CT CHEST WO IVCON Exam End: 07/17/2022 1:26 PM (Final result) Impression: IMPRESSION: Bronchiectasis. Left lung base bleb Evidence of remote granulomatous disease. Pericardial effusion. No developing suspicious mass or adenopathy. No evidence of thymic mass. ... Last XR Chest - Impression Only XR CHEST 2V FRONTAL/LAT Exam End: 05/19/2023 3:13 PM (Final result) Impression: IMPRESSION: Reticular and linear opacities in the bilateral lungs. Stable calcified right lung nodule. ... Recent Results (from the past 4464 hours) ECHO Collection Time: 06/06/24 1:52 PM Impression CONCLUSIONS: - Technically difficult exam due to suboptimal positioning and body habitus. - Exam indication: Pericardial effusion - Left ventricular systolic function is normal. EF = 60 5% (visual est.) - There is a small pericardial effusion without tamponade physiology. - Exam was compared with the prior echocardiographic exam performed on 05/07/2022, no significant change. * * * Final * * * ASSESSMENT/PLAN: 1. Chronic hypoxemic respiratory failure (HCC) - ICD9: 518.83, 799.02, ICD10: J96.11 (primary diagnosis) Continue 2L supplemental oxygen during the day, 4L at night. DME: [employer] 2. Post-COVID chronic dyspnea - ICD9: 786.09, 139.8, ICD10: R06.09, U09.9 No specific therapy at this time. - SPIROMETRY WITH DILATOR IF OBSTRUCTED - LUNG VOLUMES - LUNG DIFFUSION CAPACITY (DLCO) 3. Former smoker - ICD9: V15.82, ICD10: Z87.891 Patient is enrolled in lung cancer screening. - SPIROMETRY WITH DILATOR IF OBSTRUCTED - LUNG VOLUMES - LUNG DIFFUSION CAPACITY (DLCO) 4. Class 3 severe obesity with body mass index (BMI) of 40.0 to 44.9 in adult, unspecified obesity type, unspecified whether serious comorbidity present (HCC) - ICD9: 278.01, V85.41, ICD10: E66.813, E66.01, Z68.41 BMI 43.62 Weight loss encouraged. Portions of this documentation were copied and pasted from previous office visit notes in order to provide a cohesive continuity of the history. The note has been reviewed and edited and updated as necessary. Brooke Be PA-C documented in this [facility] NoteHNO ID: [id number] Author: SALLY VILLA MD Service: ? Author Type: Physician Type: Progress Notes Filed: 11/28/2024 18:01 Note Text: Reason for Visit Samantha Romero is a 59 year oldfemale who presents here Patient presents with: ER F/U: [facility] October 2024 Health Maintenance Depression Screening Anxiety Screening Colorectal Cancer Screening Mammogram Screening Pneumococcal Vaccine: 50+(2 of 2 - PCV) Shingrix Vaccine(1 of 2) BP Controlled (<130/80) Diabetic Foot Exam Influenza Vaccine(1) Dilated Retinal Exam Cervical Cancer Screening HPI This is a 59-year-old woman with uncontrolled diabetes and neuropathy, myasthenia gravis, essential hypertension hyperlipidemia reflux disease who presents today for bilateral leg swelling. Complains today of swelling in the legs. She has gained more than 30 pounds of weight in the past 5 months. Is on lasix, which she notes she has been taking regularly, 40 mg in the morning. She does pass a lot of urine. No chest pain or shortness of breath. Echo done 5 months ago showed 60% EF with some concern for diastolic dysfunction. She denies orthopnea or PND. GFR 6 months ago was 60. She does have some hypoalbuminemia. No problem-specific Assessment AND Plan notes found for this encounter. PAST MEDICAL HISTORY Diagnosis Date Chronic hypoxemic respiratory failure (HCC) COVID-19 07/06/2021 HTN (hypertension) Hyperlipidemia 04/05/2014 Hypothyroid 04/19/2014 Kidney stone on left side 04/12/2014 Myasthenia gravis (HCC) OA (osteoarthritis) of hip, bilateral 04/04/2014 Type II or unspecified type diabetes mellitus without mention of complication, uncontrolled 04/05/2014 PAST SURGICAL HISTORY Procedure Laterality Date ESWL 04/25/14 kidney stones ESWL 05/16/14 kidney stones. PAST SURGICAL HISTORY OF c-sections x 2 PAST SURGICAL HISTORY OF appendectomy PAST SURGICAL HISTORY OF tubal ligation REMV CATARACT EXTRACAP,INSERT LENS Left 06/12/2021 Monofocal IOL 17.5 D XCAPSL CTRC RMVL INSJ IO LENS PROSTH W/O ECP Right 05/29/2021 FAMILY HISTORY Problem Relation Age of Onset Diabetes Mother Parkinson?s Disease Father Cervical Cancer Sister Diabetes Brother Cancer Maternal Grandmother Stomach CA Breast Cancer Maternal Aunt 50's Social History Tobacco Use Smoking status: Former Current packs/day: 0.00 Average packs/day: 1 pack/day for 30.0 years (30.0 ttl pk-yrs) Types: Cigarettes Start date: 11/04/1983 Quit date: 11/04/2013 Years since quittin.0 Smokeless tobacco: Never Vaping Use Vaping status: Never Used Substance Use Topics Alcohol use: Not Currently Comment: wine cool every once in a while Drug use: Not Currently Types: Marijuana Past medical history, appointments, medications, allergies reviewed. Pertinent Lab/Diagnostic Studies are reviewed and discussed today Current Outpatient Medications: levothyroxine (SYNTHROID) 150 mcg tablet HYDROcodone-acetaminophen (NORCO) 5-325 mg per tablet gabapentin (NEURONTIN) 800 mg tablet flash glucose sensor (FREESTYLE TAYLOR 14 DAY SENSOR) kit furosemide (LASIX) 40 mg tablet gabapentin (NEURONTIN) 600 mg tablet dulaglutide (TRULICITY) 4.5 mg/0.5 mL pen injector omeprazole (PRILOSEC) 40 mg capsule meloxicam (MOBIC) 15 mg tablet keTORolac (ACULAR) 0.5 % ophthalmic solution prednisoLONE acetate (PRED FORTE) 1 % ophthalmic suspension promethazine (PHENERGAN) 25 mg tablet empagliflozin (JARDIANCE) 25 mg tablet lisinopril 2.5 mg tablet insulin aspart U-100 (NOVOLOG) 100 unit/mL (3 mL) insulin degludec (TRESIBA FLEXTOUCH U-200) 200 unit/mL (3 mL) injection blood sugar diagnostic (FREESTYLE LITE STRIPS) test strip dicyclomine (BENTYL) 10 mg capsule Fenofibrate (LOFIBRA) 160 mg tablet rosuvastatin (CRESTOR) 10 mg tablet hydrOXYzine HCl (ATARAX) 25 mg tablet Insulin [place], Disposable, (DROPLET PEN NEEDLE) 31 gauge x 3/16 fluticasone (FLONASE) 50 mcg/actuation nasal spray PEG 400-propylene glycol (SYSTANE ULTRA) 0.4-0.3 % ophthalmic solution Cholecalciferol, Vitamin D3, 125 mcg (5,000 unit) cap blood sugar diagnostic (BLOOD GLUCOSE TEST) test strip blood sugar diagnostic (BLOOD GLUCOSE TEST) test strip OXYGEN, HOME THERAPY, Blood-Glucose Meter monitoring kit Lancets lancets Miscellaneous Medical Supply (BLOOD PRESSURE CUFF) flash glucose scanning reader (zkipsterYLE TAYLOR 14 DAY READER) estradiol (ESTRACE) 0.01 % (0.1 mg/gram) vaginal cream Review of Systems CONSTITUTIONAL: No fevers, chills night sweats, unintended weight loss CARDIOVASCULAR: No chest pain, dyspnea, palpitations, orthopnea, PND, ankle edema. PULM: No dyspnea, unexplained cough. GI: No dysphagia/odynophagia, problematic reflux, constipation, diarrhea, changes in stool habits, hematochezia, melena. : No new urinary complaints, including dysuria, gross hematuria or pyuria. NEURO: No new balance problems, peripheral weakness/paresthesias or (more content not included)...[facility]02-25-2025 History of Present illness Narrative* Sally Villa MD - 11/28/2024 4:08 PM EST Reason for Visit Samantha Romero is a 59 year oldfemale who presents here Patient presents with: ER F/U: [facility] October 2024 Health Maintenance Depression Screening Anxiety Screening Colorectal Cancer Screening Mammogram Screening Pneumococcal Vaccine: 50+(2 of 2 - PCV) Shingrix Vaccine(1 of 2) BP Controlled (<130/80) Diabetic Foot Exam Influenza Vaccine(1) Dilated Retinal Exam Cervical Cancer Screening HPI This is a 59-year-old woman with uncontrolled diabetes and neuropathy, myasthenia gravis, essentialhypertension hyperlipidemia reflux disease who presents today for bilateral leg swelling. Complains today of swelling in the legs. She has gained more than 30 pounds of weight in the past 5months. Is on lasix, which she notes she has been taking regularly, 40 mg in the morning. She does pass a lot of urine. No chest pain or shortness of breath. Echo done 5 months ago showed 60% EF with some concern for diastolic dysfunction. She denies orthopnea or PND. GFR 6 months ago was 60. She does have some hypoalbuminemia. No problem-specific Assessment & Plan notes found for this encounter. PAST MEDICAL HISTORY Diagnosis Date Chronic hypoxemic respiratory failure (HCC) COVID-19 07/06/2021 HTN (hypertension) Hyperlipidemia 04/05/2014 Hypothyroid 04/19/2014 Kidney stone on left side 04/12/2014 Myasthenia gravis (HCC) OA (osteoarthritis) of hip, bilateral 04/04/2014 Type II or unspecified type diabetes mellitus without mention of complication, uncontrolled 04/05/2014 PAST SURGICAL HISTORY Procedure Laterality Date ESWL 04/25/14 kidney stones ESWL 05/16/14 kidney stones. PAST SURGICAL HISTORY OF c-sections x 2 PAST SURGICAL HISTORY OF appendectomy PAST SURGICAL HISTORY OF tubal ligation REMV CATARACT EXTRACAP,INSERT LENS Left 06/12/2021 Monofocal IOL 17.5 D XCAPSL CTRC RMVL INSJ IO LENS PROSTH W/O ECP Right 05/29/2021 FAMILY HISTORY Problem Relation Age of Onset Diabetes Mother Parkinson s Disease Father Cervical Cancer Sister Diabetes Brother Cancer Maternal Grandmother Stomach CA Breast Cancer Maternal Aunt 50's Social History Tobacco Use Smoking status: Former Current packs/day: 0.00 Average packs/day: 1 pack/day for 30.0 years (30.0 ttl pk-yrs) Types: Cigarettes Start date: 11/04/1983 Quit date: 11/04/2013 Years since quittin.0 Smokeless tobacco: Never Vaping Use Vaping status: Never Used Substance Use Topics Alcohol use: Not Currently Comment: wine cool every once in a while Drug use: Not Currently Types: Marijuana Past medical history, appointments, medications, allergies reviewed. Pertinent Lab/Diagnostic Studies are reviewed and discussed today Current Outpatient Medications: levothyroxine (SYNTHROID) 150 mcg tablet HYDROcodone-acetaminophen (NORCO) 5-325 mg per tablet gabapentin (NEURONTIN) 800 mg tablet flash glucose sensor (FREESTYLE TAYLOR 14 DAY SENSOR) kit furosemide (LASIX) 40 mg tablet gabapentin (NEURONTIN) 600 mg tablet dulaglutide (TRULICITY) 4.5 mg/0.5 mL pen injector omeprazole (PRILOSEC) 40 mg capsule meloxicam (MOBIC) 15 mg tablet keTORolac (ACULAR) 0.5 % ophthalmic solution prednisoLONE acetate (PRED FORTE) 1 % ophthalmic suspension promethazine (PHENERGAN) 25 mg tablet empagliflozin (JARDIANCE) 25 mg tablet lisinopril 2.5 mg tablet insulin aspart U-100 (NOVOLOG) 100 unit/mL (3 mL) insulin degludec (TRESIBA FLEXTOUCH U-200) 200 unit/mL (3 mL) injection blood sugar diagnostic (FREESTYLE LITE STRIPS) test strip dicyclomine (BENTYL) 10 mg capsule Fenofibrate (LOFIBRA) 160 mg tablet rosuvastatin (CRESTOR) 10 mg tablet hydrOXYzine HCl (ATARAX) 25 mg tablet Insulin [place], Disposable, (DROPLET PEN NEEDLE) 31 gauge x 3/16 fluticasone (FLONASE) 50 mcg/actuation nasal spray PEG 400-propylene glycol (SYSTANE ULTRA) 0.4-0.3 % ophthalmic solution Cholecalciferol, Vitamin D3, 125 mcg (5,000 unit) cap blood sugar diagnostic (BLOOD GLUCOSE TEST) test strip blood sugar diagnostic (BLOOD GLUCOSE TEST) test strip OXYGEN, HOME THERAPY, Blood-Glucose Meter monitoring kit Lancets lancets Miscellaneous Medical Supply (BLOOD PRESSURE CUFF) flash glucose scanning reader (RedbeaconSTYLE TAYLOR 14 DAY READER) estradiol (ESTRACE) 0.01 % (0.1 mg/gram) vaginal cream Review of Systems CONSTITUTIONAL: No fevers, chills night sweats, unintended weight loss CARDIOVASCULAR: No chest pain, dyspnea, palpitations, orthopnea, PND, ankle edema. PULM: No dyspnea, unexplained cough. GI: No dysphagia/odynophagia, problematic reflux, constipation, diarrhea, changes in stool habits, hematochezia, melena. : No new urinary complaints, including dysuria, gross hematuria or pyuria. NEURO: No new balance problems, peripheral weakness/paresthesias or numbness of concern. Physical Exam BP 125/74 Pulse 75 Ht 162.6 cm (5' 4) Wt 115.3 kg (254 lb 1.9 oz) LMP 04/27/2016 SpO2 96% BMI 43.62 kg/m General appearance: Well appearing, alert, in no acute distress, well nourished. Skin: Skin color, texture, turgor normal, no suspicious rashes or lesions Head: Normocephalic, no masses, lesions, tenderness or abnormalities Eyes: Anicteric sclera. Pupils are equally round and reactive to light. Extraocular movements are intact. Lungs:Normal breathing efforts, Lungs clear to auscultation. No wheezing, rhonchi, rales Heart: RRR without murmur, gallop, or rubs. Extremities: Edema 3+. ASSESSMENT/PLAN: 1. Localized swelling of left lower extremity - ICD9: 782.2, ICD10: R22.42 (primary diagnosis) . Etiology is unclear could be cardiac, versus kidney related like nephrotic syndrome. Increased her diuretic by adding metolazone and also adding potassium to it. 2. UTI symptoms - ICD9: 788.99, ICD10: R39.9 - URINALYSIS, WITH MICROSCOPIC 3. Hyponatremia - ICD9: 276.1, ICD10: E87.1 - NT PRO BNP 4. Pedal edema - ICD9: 782.3, ICD10: R60.0 - COMPLETE BLOOD COUNT AND DIFFERENTIAL - COMPREHENSIVE METABOLIC PANEL - PROTEIN, 24 HOUR URINE 5. Hypoalbuminemia - ICD9: 273.8, ICD10: E88.09 6. Weight gain - ICD9: 783.1, ICD10: R63.5 - THYROID STIMULATING HORMONE 7. Fatigue, unspecified type - ICD9: 780.79, ICD10: R53.83 - THYROID STIMULATING HORMONE Sally Villa MD Voice recognition software was used to compose this office note. Please excuse any unintended typographical errors. * Chet Webster LPN - 11/28/2024 4:07 PM EST Asked patient to bring in all medication on next visit to review, patient voiced understanding Chet Webster LPN November 28, 2024 4:08 PM [facility] NoteHNO ID: [id number] Author: CHET WEBSTER LPN Service: ? Author Type: LICENSED NURSE Type: Progress Notes Filed: 11/28/2024 18:01 Note Text: Asked patient to bring in all medication on next visit to review, patient voiced understanding Chet Webster LPN November 28, 2024 4:08 [facility]02-21-2025 NoteHNO ID: [id number] Author: MAYLIN DELANEY LPN Service: ? Author Type: LICENSED NURSE Type: Progress Notes Filed: 12/08/2024 16:42 Note Text: Pt's last A1c was 10/16/24 9.2. pt did have insurance issues. As in Dr. Adams wasn't in network in Oct 2024. Pt has appt for ER f/u with Dr. Villa 11/28/24.[facility] 11-24-2024 NotePatient Outreach (INTMWS) SAMANTHA ROMERO ([id number]) 1965 F Date Time Provider Department 11/24/24 SARINA ADAMS INTMWS During your visit today, we recorded the following information about you: Maylin Delaney LPN 12/08/2024 4:42 PM Signed Pt's last A1c was 10/16/24 9.2. pt did have insurance issues. As in Dr. Adams wasn't in network in Oct 2024. Pt has appt for ER f/u with Dr. Villa 11/28/24. Maylin Delaney LPN 12/08/2024 4:42 PM Signed Pt was seen today and DM reviewed. Allergies As of Date: 11/24/2024 Noted Allergy Reaction METFORMIN 09/10/2016 6 - Diarrhea Comments: Diarrhea every time takes, even with ER dose OXYCODONE 07/07/2021 8 - GI Upset PERCOCET (OXYCODONE-ACETAMINOPHEN)05/07/2014 8 - GI Upset Comments: and off balance Date Reviewed: 10/16/2024 Reviewed by: Ramesh Brewster MD - Fully Assessed Reason for Visit: Diabetes [34] Prescriptions as of 12/08/2024 - gabapentin (NEURONTIN) 800 mg tablet Take 800 mg by mouth three times a day. - HYDROcodone-acetaminophen (NORCO) 5-325 mg per tablet Take 1 tablet by mouth four times a day as needed for pain for up to 30 days. Short term increase to 4 times daily as needed due to fall/rotator cuff injury Patient should start on December 10, 2024. - levothyroxine (SYNTHROID) 150 mcg tablet Take 2 tablets by mouth once daily. - insulin degludec (TRESIBA FLEXTOUCH U-200) 200 unit/mL (3 mL) injection Inject 80 Units subcutaneously daily at bedtime. - metOLazone (ZAROXOLYN) 10 mg tablet Take 1 tablet by mouth once daily for 10 days. - potassium chloride (K-TAB) 10 mEq tablet Take 1 tablet by mouth once daily. - furosemide (LASIX) 40 mg tablet Take 1 tablet by mouth two times a day. - gabapentin (NEURONTIN) 800 mg tablet Take 1 tablet by mouth three times a day for 90 days. - flash glucose sensor (RedbeaconSTYLE TAYLOR 14 DAY SENSOR) kit Use to check blood sugar 4 times daily. Please give 2 sensors per refill - gabapentin (NEURONTIN) 600 mg tablet Take 1 tablet by mouth three times a day for 90 days. - dulaglutide (TRULICITY) 4.5 mg/0.5 mL pen injector Inject 4.5 mg subcutaneously one time a week. - omeprazole (PRILOSEC) 40 mg capsule Take 1 capsule by mouth once daily. - meloxicam (MOBIC) 15 mg tablet Take 1 tablet by mouth once daily as needed for pain. With food. - keTORolac (ACULAR) 0.5 % ophthalmic solution EVERY 6 HOURS - prednisoLONE acetate (PRED FORTE) 1 % ophthalmic suspension EVERY 6 HOURS - promethazine (PHENERGAN) 25 mg tablet Take 25 mg by mouth every 6 hours as needed. - empagliflozin (JARDIANCE) 25 mg tablet Take 1 tablet by mouth daily with breakfast. ON HOLD FOLLOWING HOSPITAL DISCHARGE 04/2024 - lisinopril 2.5 mg tablet Take 1 tablet by mouth once daily. ON HOLD FOLLOWING HOSPITAL DISCHARGE 04/2024 - insulin aspart U-100 (NOVOLOG) 100 unit/mL (3 mL) INJECT 20 UNITS SUBCUTANEOUSLY WITH MEALS THREE TIMES A DAY PLUS SLIDING SCALE #2 (add 2 units for every 50 points above 150 mg/dl) BASED ON PRE-MEAL BLOOD SUGAR (MAX: 96 UNITS PER DAY) - insulin degludec (TRESIBA FLEXTOUCH U-200) 200 unit/mL (3 mL) injection Inject 80 Units subcutaneously daily at bedtime. - blood sugar diagnostic (FREESTYLE LITE STRIPS) test strip Test blood sugar(s) 4 times daily. Dx: Other DM Code E11.40 Insulin: Yes - dicyclomine (BENTYL) 10 mg capsule Take 1 capsule by mouth before meals and at bedtime. for abdominal pain - Fenofibrate (LOFIBRA) 160 mg tablet Take 1 tablet by mouth once daily. - rosuvastatin (CRESTOR) 10 mg tablet Take 1 tablet by mouth daily at bedtime. - hydrOXYzine HCl (ATARAX) 25 mg tablet Take 1-2 tablets by mouth at bedtime as needed. - Insulin [place], Disposable, (DROPLET PEN NEEDLE) 31 gauge x 16 use 1 PEN NEEDLE to inject MEDICATION subcutaneously four times a day - fluticasone (FLONASE) 50 mcg/actuation nasal spray Use 1-2 Sprays in each nostril once daily as needed. - PEG 400-propylene glycol (SYSTANE ULTRA) 0.4-0.3 % ophthalmic solution Use 1 Drop in both eyes four times daily. - Cholecalciferol, Vitamin D3, 125 mcg (5,000 unit) cap Take 1 capsule by mouth once daily. - blood sugar diagnostic (BLOOD GLUCOSE TEST) test strip Test blood sugar(s) 4 times daily. Dx: Other DM Code E11.40 Insulin: Yes - blood sugar diagnostic (BLOOD GLUCOSE TEST) test strip Test blood sugar(s) 4 times daily. Dx: Type 2 DM - Controlled E11.9 Insulin: Yes - OXYGEN, HOME THERAPY, Inhale as instructed as directed. Uses at 2 l/m via nasal cannula during the day and 4 l/m at night - Blood-Glucose Meter monitoring kit Check sugars daily and as needed (Freestyle Lite is what she has had) - Lancets lancets Test blood sugar(s) 4 times daily. Dx: E11.9 Insulin: Yes - Miscellaneous Medical Supply (BLOOD PRESSURE CUFF) 1 Each as needed. Blood pressure Monitor and Cuff, use as directed. Dx: I10 Hypertension (more content not included)...[facility]02-17-2025 Telephone encounter Note* Telephone Encounter - Iraida Zuleta - 11/20/2024 3:56 PM EST Spoke with patient and scheduled with INTM provider as directed. Iraida Zuleta [facility]02-17-2025 Miscellaneous Notes* Telephone Encounter - Iraida Zuleta - 11/20/2024 3:56 PM EST Spoke with patient and scheduled with INTM provider as directed. Iraidaearle Zuleta * Telephone Encounter - David Sanders LPN - 11/20/2024 3:41 PM EST Pt scheduled for hospital follow up with [facility] on 11/28/24. Please assist pt with rescheduling hospital follow up with PCP, member of PCP team or provider in INTM. In addition, please ask what hospital pt was in and when they were discharged? David Sanders LPN documented in this [facility]02-[facility]25 Telephone encounter Note * Telephone Encounter - David Sanders LPN - 11/20/2024 3:41 PM EST Pt scheduled for hospital follow up with [facility] on 11/28/24. Please assist pt with rescheduling hospital follow up with PCP, member of PCP team or provider in INTM. In addition, please ask what hospital pt was in and when they were discharged? David Sanders LPN [facility]02-03-2025 Telephone encounter Note* Telephone Encounter - Alicja Robin RN - 11/06/2024 12:28 PM EST Called and left a detailed voicemail notifying patient of providers message. Clinic phone number was left in case patient had any questions. Alicja Robin RN [facility]02-03-2025 Miscellaneous Notes* Telephone Encounter - Alicja Robin RN - 11/06/2024 12:28 PM EST Called and left a detailed voicemail notifying patient of providers message. Clinic phone number was left in case patient had any questions. Alicja Robin RN * Telephone Encounter - Sarina Adams MD - 11/04/2024 11:12 AM EST 1) Sent 2) Patient should not increase gabapentin dose on her own. She is close to max dose of medication. Would try 800mg three times daily instead which is same amount per 24 hours and see if that works maybe better. 3) Patient not due for hydrocodone till next week--okay to extend higher dose another 30 days then need to re-evaluate what is going on with shoulder. No early refills on this med. The following approved medication requests have been transmitted electronically. Requested Prescriptions Signed Prescriptions Disp Refills levothyroxine (SYNTHROID) 150 mcg tablet 60 tablet 5 Sig: Take 2 tablets by mouth once daily. Authorizing Provider: SARINA ADAMS HYDROcodone-acetaminophen (NORCO) 5-325 mg per tablet 120 tablet 0 Sig: Take 1 tablet by mouth four times a day as needed for pain for up to 30 days. Short term increase to 4 times daily as needed due to fall/rotator cuff injury Patient should start on November 10, 2024. Authorizing Provider: SARINA ADAMS gabapentin (NEURONTIN) 800 mg tablet 90 tablet 2 Sig: Take 1 tablet by mouth three times a day for 90 days. Authorizing Provider: SARINA ADAMS MD * Telephone Encounter - Kerri Abdi RN - 11/04/2024 9:55 AM EST Phoned patient and given provider's message below. 1) pt asking pcp to send the levothyroxine 150 mcg take 2 tabs daily to [facility]. 2) pt asking pcp to send gabapentin 600 mg rx to [facility] to take 4 x's day because she hastaken it 4 x's day and the increased dose really helps with the numbness and tingling in her feet and hands. Pended. 3) pt asking pcp to send norco rx to [facility]. Pended. * Telephone Encounter - Sarina Adams MD - 11/03/2024 7:06 PM EST Below noted Make sure able to get insurance worked out so can be seen soon. Verify patient increased dose of levothyroxine to 300mcg. If too difficult to taking 1.5 pills, can change to taking two 150 mcg pills. Dispense report does not show that has filled her levothyroxine recently. Verify patient has pills. I pended the 150mcg pill RX so I can file it if wants to change to this. * Telephone Encounter - Mara Degroot LPN - 11/02/2024 4:08 PM EST Patient was scheduled to be seen here for an appointment on Wednesday but we were unable to see her due to insurance. Encounter routed to [facility] to see if insurance has been worked out and if so have them schedule an appointment PCP team for hospital f/u. * Telephone Encounter - Tim Mcguire MD - 10/27/2024 8:04 PM EST Contacted by Dr. Harvey at [facility] ED for patient presenting with 2+ LE pitting edema to her hips and complaint of having harder time getting around, but not SOB. TSH found to be 79.8. Patient on 2L O2 at baseline and SpO2 95% with ambulation. No pleural or pericardial effusion. Patient has only been taking 200 mcg of synthroid instead of 300 mcg as prescribed. Discharging home with burst of Lasix and will increase synthroid. Will need early f/u next week with PCP team. [facility] in [facility] Telephone encounter Note * Telephone Encounter - Sarina Adams MD - 11/04/2024 11:12 AM EST 1) Sent 2) Patient should not increase gabapentin dose on her own. She is close to max dose of medication. Would try 800mg three times daily instead which is same amount per 24 hours and see if that works maybe better. 3) Patient not due for hydrocodone till next week--okay to extend higher dose another 30 days then need to re-evaluate what is going on with shoulder. No early refills on this med. The following approved medication requests have been transmitted electronically. Requested Prescriptions Signed Prescriptions Disp Refills levothyroxine (SYNTHROID) 150 mcg tablet 60 tablet 5 Sig: Take 2 tablets by mouth once daily. Authorizing Provider: SARINA ADAMS HYDROcodone-acetaminophen (NORCO) 5-325 mg per tablet 120 tablet 0 Sig: Take 1 tablet by mouth four times a day as needed for pain for up to 30 days. Short term increase to 4 times daily as needed due to fall/rotator cuff injury Patient should start on November 10, 2024. Authorizing Provider: SARINA ADAMS gabapentin (NEURONTIN) 800 mg tablet 90 tablet 2 Sig: Take 1 tablet by mouth three times a day for 90 days. Authorizing Provider: SARIAN ADAMS MD [facility]02-01-2025 Telephone encounter Note* Telephone Encounter - Kerri Abdi RN - 11/04/2024 9:55 AM EST Phoned patient and given provider's message below. 1) pt asking pcp to send the levothyroxine 150 mcg take 2 tabs daily to [facility]. 2) pt asking pcp to send gabapentin 600 mg rx to [facility] to take 4 x's day because she hastaken it 4 x's day and the increased dose really helps with the numbness and tingling in her feet and hands. Pended. 3) pt asking pcp to send norco rx to [facility]. Pended. [place]01-31-2025 Telephone encounter Note* Telephone Encounter - Sarina Adams MD - 11/03/2024 7:06 PM EST Below noted Make sure able to get insurance worked out so can be seen soon. Verify patient increased dose of levothyroxine to 300mcg. If too difficult to taking 1.5 pills, can change to taking two 150 mcg pills. Dispense report does not show that has filled her levothyroxine recently. Verify patient has pills. I pended the 150mcg pill RX so I can file it if wants to change to this. [place]01-30-2025 Telephone encounter Note* Telephone Encounter - Mara Degroot LPN - 11/02/2024 4:08 PM EST Patient was scheduled to be seen here for an appointment on Wednesday but we were unable to see her due to insurance. Encounter routed to [facility] to see if insurance has been worked out and if so have them schedule an appointment PCP team for hospital f/u. [place]01-24-2025 Telephone encounter Note* Telephone Encounter - Tim Mcguire MD - 10/27/2024 8:04 PM EST Contacted by Dr. Harvey at [facility] ED for patient presenting with 2+ LE pitting edema to her hips and complaint of having harder time getting around, but not SOB. TSH found to be 79.8. Patient on 2L O2 at baseline and SpO2 95% with ambulation. No pleural or pericardial effusion. Patient has only been taking 200 mcg of synthroid instead of 300 mcg as prescribed. Discharging home with burst of Lasix and will increase synthroid. Will need early f/u next week with PCP team. [facility] Work Phone: [phone] Telephone encounter Note* Telephone Encounter - Alicja Robin RN - 10/25/2024 11:39 AM EST Called and left a detailed voicemail notifying patient of providers message. Clinic phone number was left in case patient had any questions. Alicja Robin RN [facility]01-22-2025 Miscellaneous Notes* Telephone Encounter - Alicja Robin RN - 10/25/2024 11:39 AM EST Called and left a detailed voicemail notifying patient of providers message. Clinic phone number was left in case patient had any questions. Alicja Robin RN * Telephone Encounter - Denise Alvarado APRN.ROLF - 10/24/2024 11:50 AM EST Is this documenting referral to cardiology to follow up regarding recommendations? If not I recommend that. BNP10/16/2024 was within normal limits. Cardiology to NOT increase lasix at this time per communication today. * Telephone Encounter - Loulou Robbins LPN - 10/24/2024 11:40 AM EST Patient is question on if she should increase lasix. Per Dr. Melendez note Lower extremity edema unaffected by Lasix could represent right heart failure. Will check a BNP. If elevated we will consider increasing her Lasix dose . Please provided results and course of action. Loulou Robbins LPN * Telephone Encounter - Kristen Bronson LPN - 10/24/2024 11:09 AM EST Pt called in to reports swelling in both legs still persisting. Pt calls and states the following: SWELLING, LEG/EDEMA ONSET: swelling all the time, but has increased the past week LOCATION: Swelling in both legs, toes small amount, top of both feet, left more than right up past thigh SEVERITY: moderate swelling - has to use walker to get around and unsteady at times due to the swelling REDNESS: top of feet red, redness with legs also small amount per pt PAIN: Legs are painful, pain scale 5 (takes Vicodin for back and this helps a little with the pain FEVER: no CAUSE: unknown was told to not eat salt MEDICAL HISTORY: no history of heart failure, kidney disease, liver failure or cancer RECURRENT SYMPTOMS: yes but nothing like it is now. OTHER SYMPTOMS: Legs warm to touch, SOB but this is not uncommon for pt. Pt has this when she gets over exerted. Pt saw Cariology on 10-16-24. This may happen off and on. getting abdominal discomfort on left and right side off and on. Takes Bentyl once a day and she may try increasing if needed. DENIES: chest pain, Pt scheduled for apt in the office on Wednesday10-27-24. Pt declined sooner apts today due to transportation. Pt reports she has transportation for Wednesday only. Please review and advise Routing tp Provider/team to review. Kristen Bronson LPN [facility] Telephone encounter Note * Telephone Encounter - Denise Alvarado APRN.ROLF - 10/24/2024 11:50 AM EST Is this documenting referral to cardiology to follow up regarding recommendations? If not I recommend that. BNP10/16/2024 was within normal limits. Cardiology to NOT increase lasix at this time per communication today. [facility]01-21-2025 Telephone encounter Note* Telephone Encounter - Loulou Robbins LPN - 10/24/2024 11:40 AM EST Patient is question on if she should increase lasix. Per Dr. Melendez note Lower extremity edema unaffected by Lasix could represent right heart failure. Will check a BNP. If elevated we will consider increasing her Lasix dose . Please provided results and course of action. Loulou Robbins LPN [facility] Work Phone: [phone] 421-975601-21-2025 Telephone encounter Note* Telephone Encounter - Kristen Bronson LPN - 10/24/2024 11:09 AM EST Pt called in to reports swelling in both legs still persisting. Pt calls and states the following: SWELLING, LEG/EDEMA ONSET: swelling all the time, but has increased the past week LOCATION: Swelling in both legs, toes small amount, top of both feet, left more than right up past thigh SEVERITY: moderate swelling - has to use walker to get around and unsteady at times due to the swelling REDNESS: top of feet red, redness with legs also small amount per pt PAIN: Legs are painful, pain scale 5 (takes Vicodin for back and this helps a little with the pain FEVER: no CAUSE: unknown was told to not eat salt MEDICAL HISTORY: no history of heart failure, kidney disease, liver failure or cancer RECURRENT SYMPTOMS: yes but nothing like it is now. OTHER SYMPTOMS: Legs warm to touch, SOB but this is not uncommon for pt. Pt has this when she gets over exerted. Pt saw Cariology on 10-16-24. This may happen off and on. getting abdominal discomfort on left and right side off and on. Takes Bentyl once a day and she may try increasing if needed. DENIES: chest pain, Pt scheduled for apt in the office on Wednesday10-27-24. Pt declined sooner apts today due to transportation. Pt reports she has transportation for Wednesday only. Please review and advise Routing tp Provider/team to review. Kristen Bronson LPN [facility]01-16-2025 Telephone encounter Note* Telephone Encounter - Corina Pacheco - 10/19/2024 2:11 PM EST Prescription Refill Information The patient has been identified by name and date of : Yes Caregiver verified no other encounters exist for this prescription request: Yes Caregiver confirmed with patient/requestor that no other refills are due, in the near future, with this provider at this time: Yes The last office visit in the department: 06-14-24 Does the patient have a future office visit with this provider/department: No Requested Prescriptions Pending Prescriptions Disp Refills flash glucose sensor (FREESTYLE TAYLOR 14 DAY SENSOR) kit 2 Kit 5 Sig: Use to check blood sugar 4 times daily. Please give 2 sensors per refill Corina Hinkle October 19, 2024 2:13 PM [facility]01-16-2025 Miscellaneous Notes* Telephone Encounter - Corina Pacheco - 10/19/2024 2:11 PM EST Prescription Refill Information The patient has been identified by name and date of : Yes Caregiver verified no other encounters exist for this prescription request: Yes Caregiver confirmed with patient/requestor that no other refills are due, in the near future, with this provider at this time: Yes The last office visit in the department: 06-14-24 Does the patient have a future office visit with this provider/department: No Requested Prescriptions Pending Prescriptions Disp Refills flash glucose sensor (FREESTYLE TAYLOR 14 DAY SENSOR) kit 2 Kit 5 Sig: Use to check blood sugar 4 times daily. Please give 2 sensors per refill Corina Hinkle October 19, 2024 2:13 PM documented in this encounterK[facility]01-14-2025 NotePatient Outreach (INTMWS) SAMANTHA ROMERO ([id number]) 1965 F Date Time Provider Department 10/17/24 SARINA ADAMS INTGUERA During your visit today, we recorded the following information about you: Allergies As of Date: 10/17/2024 Noted Allergy Reaction METFORMIN 09/10/2016 6 - Diarrhea Comments: Diarrhea every time takes, even with ER dose OXYCODONE 07/07/2021 8 - GI Upset PERCOCET (OXYCODONE-ACETAMINOPHEN)05/07/2014 8 - GI Upset Comments: and off balance Date Reviewed: 10/16/2024 Reviewed by: Ramesh Brewster MD - Fully Assessed Visit Diagnosis:Encounter for screening mammogram for breast cancer [Z12.31] Order(s):DIANNA SCREENING Sebastián SANAM [[id number]] Order #: [id number] FUTURE Prescriptions as of 11/17/2024 - levothyroxine (SYNTHROID) 150 mcg tablet Take 2 tablets by mouth once daily. - HYDROcodone-acetaminophen (NORCO) 5-325 mg per tablet Take 1 tablet by mouth four times a day as needed for pain for up to 30 days. Short term increase to 4 times daily as needed due to fall/rotator cuff injury Patient should start on November 10, 2024. - gabapentin (NEURONTIN) 800 mg tablet Take 1 tablet by mouth three times a day for 90 days. - flash glucose sensor (FREESTYLE TAYLOR 14 DAY SENSOR) kit Use to check blood sugar 4 times daily. Please give 2 sensors per refill - furosemide (LASIX) 40 mg tablet Take 1 tablet by mouth once daily as needed (for swelling). - gabapentin (NEURONTIN) 600 mg tablet Take 1 tablet by mouth three times a day for 90 days. - dulaglutide (TRULICITY) 4.5 mg/0.5 mL pen injector Inject 4.5 mg subcutaneously one time a week. - omeprazole (PRILOSEC) 40 mg capsule Take 1 capsule by mouth once daily. - meloxicam (MOBIC) 15 mg tablet Take 1 tablet by mouth once daily as needed for pain. With food. - keTORolac (ACULAR) 0.5 % ophthalmic solution EVERY 6 HOURS - prednisoLONE acetate (PRED FORTE) 1 % ophthalmic suspension EVERY 6 HOURS - promethazine (PHENERGAN) 25 mg tablet Take 25 mg by mouth every 6 hours as needed. - empagliflozin (JARDIANCE) 25 mg tablet Take 1 tablet by mouth daily with breakfast. ON HOLD FOLLOWING HOSPITAL DISCHARGE 04/2024 - lisinopril 2.5 mg tablet Take 1 tablet by mouth once daily. ON HOLD FOLLOWING HOSPITAL DISCHARGE 04/2024 - insulin aspart U-100 (NOVOLOG) 100 unit/mL (3 mL) INJECT 20 UNITS SUBCUTANEOUSLY WITH MEALS THREE TIMES A DAY PLUS SLIDING SCALE #2 (add 2 units for every 50 points above 150 mg/dl) BASED ON PRE-MEAL BLOOD SUGAR (MAX: 96 UNITS PER DAY) - insulin degludec (TRESIBA FLEXTOUCH U-200) 200 unit/mL (3 mL) injection Inject 80 Units subcutaneously daily at bedtime. - blood sugar diagnostic (FREESTYLE LITE STRIPS) test strip Test blood sugar(s) 4 times daily. Dx: Other DM Code E11.40 Insulin: Yes - dicyclomine (BENTYL) 10 mg capsule Take 1 capsule by mouth before meals and at bedtime. for abdominal pain - Fenofibrate (LOFIBRA) 160 mg tablet Take 1 tablet by mouth once daily. - rosuvastatin (CRESTOR) 10 mg tablet Take 1 tablet by mouth daily at bedtime. - hydrOXYzine HCl (ATARAX) 25 mg tablet Take 1-2 tablets by mouth at bedtime as needed. - Insulin [place], Disposable, (DROPLET PEN NEEDLE) 31 gauge x 3/16 use 1 PEN NEEDLE to inject MEDICATION subcutaneously four times a day - fluticasone (FLONASE) 50 mcg/actuation nasal spray Use 1-2 Sprays in each nostril once daily as needed. - PEG 400-propylene glycol (SYSTANE ULTRA) 0.4-0.3 % ophthalmic solution Use 1 Drop in both eyes four times daily. - Cholecalciferol, Vitamin D3, 125 mcg (5,000 unit) cap Take 1 capsule by mouth once daily. - blood sugar diagnostic (BLOOD GLUCOSE TEST) test strip Test blood sugar(s) 4 times daily. Dx: Other DM Code E11.40 Insulin: Yes - blood sugar diagnostic (BLOOD GLUCOSE TEST) test strip Test blood sugar(s) 4 times daily. Dx: Type 2 DM - Controlled E11.9 Insulin: Yes - OXYGEN, HOME THERAPY, Inhale as instructed as directed. Uses at 2 l/m via nasal cannula during the day and 4 l/m at night - Blood-Glucose Meter monitoring kit Check sugars daily and as needed (Freestyle Lite is what she has had) - Lancets lancets Test blood sugar(s) 4 times daily. Dx: E11.9 Insulin: Yes - Miscellaneous Medical Supply (BLOOD PRESSURE CUFF) 1 Each as needed. Blood pressure Monitor and Cuff, use as directed. Dx: I10 Hypertension - flash glucose scanning reader (FREESTYLE TAYLOR 14 DAY READER) Use to check blood sugar 4 times daily - estradiol (ESTRACE) 0.01 % (0.1 mg/gram) vaginal cream Use 3 g vaginally two times a week. Meds Comments as of 06/02/2022: 06/02/22 The medications are managed by this patient by: PATIENT Que Hernandez, OA Problem List As Of Date 10/17/2024 Noted Resolved Routine gynecological examination [Z01.419] 04/04/2014 05/16/2024 OA (osteoarthritis) of hip, bilateral [M16.9] 04/04/2014 Diabetic eye exam (HCC) [ (more content not included)...[facility]01-13-2025 Instructions* Patient Instructions* Ramesh Brewster MD - 10/16/2024 2:26 PM EST We will get blood work today documented in this encounterK[facility]01-13-2025 History of Present illness Narrative* Ramesh Brewster MD - 10/16/2024 2:00 PM EST Images from the original note were not included. [facility] Cardiology ([facility]) [address] [id number] OUTPATIENT VISIT DATE 10/16/2024 PRIMARY CARE PHYSICIAN: Sarina Adams [address] [place] [address] REFERRING PHYSICIAN: Dr. Adams HISTORY OF PRESENT ILLNESS: Ms. Romero is a 59 year old with extensive medical history including diabetes (insulin requiring), obesity, hypertension, dyslipidemia, chronic hypoxic respiratory failure requiring 2 L of nasal oxygen, and small to moderate chronic pericardial effusion who presents for routine follow-up. Patient suffered a mechanical fall was seen in the emergency room and subsequently diagnosed with a humeral fracture. She had a subsequent ER visit for urinary tract infection. She has had persistent lower extremity edema. She was started on Lasix with only minimal improvement. She has not had symptoms consistent with PND or orthopnea. She denies palpitations, lightheadedness, or syncope. PAST MEDICAL HISTORY Diagnosis Date Chronic hypoxemic respiratory failure (HCC) COVID-19 07/06/2021 HTN (hypertension) Hyperlipidemia 04/05/2014 Hypothyroid 04/19/2014 Kidney stone on left side 04/12/2014 Myasthenia gravis (HCC) OA (osteoarthritis) of hip, bilateral 04/04/2014 Type II or unspecified type diabetes mellitus without mention of complication, uncontrolled 04/05/2014 PAST SURGICAL HISTORY Procedure Laterality Date ESWL 04/25/14 kidney stones ESWL 05/16/14 kidney stones. PAST SURGICAL HISTORY OF c-sections x 2 PAST SURGICAL HISTORY OF appendectomy PAST SURGICAL HISTORY OF tubal ligation REMV CATARACT EXTRACAP,INSERT LENS Left 06/12/2021 Monofocal IOL 17.5 D XCAPSL CTRC RMVL INSJ IO LENS PROSTH W/O ECP Right 05/29/2021 SOCIAL HISTORY Social History Tobacco Use Smoking status: Former Current packs/day: 0.00 Average packs/day: 1 pack/day for 30.0 years (30.0 ttl pk-yrs) Types: Cigarettes Start date: 11/04/1983 Quit date: 11/04/2013 Years since quittin.9 Smokeless tobacco: Never Vaping Use Vaping status: Never Used Substance Use Topics Alcohol use: Not Currently Comment: wine cool every once in a while Drug use: Not Currently Types: Marijuana FAMILY HISTORY Problem Relation Age of Onset Diabetes Mother Parkinson s Disease Father Cervical Cancer Sister Diabetes Brother Cancer Maternal Grandmother Stomach CA Breast Cancer Maternal Aunt 50's ALLERGIES: ALLERGIES Allergen Reactions Metformin Diarrhea Diarrhea every time takes, even with ER dose Oxycodone GI Upset Percocet [Oxycodone* GI Upset and off balance MEDICATIONS: HYDROcodone-acetaminophen (NORCO) 5-325 mg per tablet Take 1 tablet by mouth four times a day as needed for pain for up to 30 days. Short term increase to 4 times daily as needed due to fall/rotator cuff injury furosemide (LASIX) 40 mg tablet Take 1 tablet by mouth once daily as needed (for swelling). gabapentin (NEURONTIN) 600 mg tablet Take 1 tablet by mouth three times a day for 90 days. dulaglutide (TRULICITY) 4.5 mg/0.5 mL pen injector Inject 4.5 mg subcutaneously one time a week. omeprazole (PRILOSEC) 40 mg capsule Take 1 capsule by mouth once daily. meloxicam (MOBIC) 15 mg tablet Take 1 tablet by mouth once daily as needed for pain. With food. keTORolac (ACULAR) 0.5 % ophthalmic solution EVERY 6 HOURS prednisoLONE acetate (PRED FORTE) 1 % ophthalmic suspension EVERY 6 HOURS promethazine (PHENERGAN) 25 mg tablet Take 25 mg by mouth every 6 hours as needed. empagliflozin (JARDIANCE) 25 mg tablet Take 1 tablet by mouth daily with breakfast. ON HOLD FOLLOWING HOSPITAL DISCHARGE 04/2024 lisinopril 2.5 mg tablet Take 1 tablet by mouth once daily. ON HOLD FOLLOWING HOSPITAL DISCHARGE 04/2024 insulin aspart U-100 (NOVOLOG) 100 unit/mL (3 mL) INJECT 20 UNITS SUBCUTANEOUSLY WITH MEALS THREE TIMES A DAY PLUS SLIDING SCALE #2 (add 2 units for every 50 points above 150 mg/dl) BASED ON PRE-MEAL BLOOD SUGAR (MAX: 96 UNITS PER DAY) insulin degludec (TRESIBA FLEXTOUCH U-200) 200 unit/mL (3 mL) injection Inject 80 Units subcutaneously daily at bedtime. levothyroxine (SYNTHROID) 200 mcg tablet Take 1.5 tablets by mouth daily before breakfast. blood sugar diagnostic (FREESTYLE LITE STRIPS) test strip Test blood sugar(s) 4 times daily. Dx: Other DM Code E11.40 Insulin: Yes flash glucose sensor (FREESTYLE TAYLOR 14 DAY SENSOR) kit Use to check blood sugar 4 times daily. Please give 2 sensors per refill dicyclomine (BENTYL) 10 mg capsule Take 1 capsule by mouth before meals and at bedtime. for abdominal pain Fenofibrate (LOFIBRA) 160 mg tablet Take 1 tablet by mouth once daily. rosuvastatin (CRESTOR) 10 mg tablet Take 1 tablet by mouth daily at bedtime. hydrOXYzine HCl (ATARAX) 25 mg tablet Take 1-2 tablets by mouth at bedtime as needed. Insulin [place], Disposable, (DROPLET PEN NEEDLE) 31 gauge x 3/16 use 1 PEN NEEDLE to inject MEDICATION subcutaneously four times a day fluticasone (FLONASE) 50 mcg/actuation nasal spray Use 1-2 Sprays in each nostril once daily as needed. PEG 400-propylene glycol (SYSTANE ULTRA) 0.4-0.3 % ophthalmic solution Use 1 Drop in both eyes fourtimes daily. Cholecalciferol, Vitamin D3, 125 mcg (5,000 unit) cap Take 1 capsule by mouth once daily. blood sugar diagnostic (BLOOD GLUCOSE TEST) test strip Test blood sugar(s) 4 times daily. Dx: OtherDM Code E11.40 Insulin: Yes blood sugar diagnostic (BLOOD GLUCOSE TEST) test strip Test blood sugar(s) 4 times daily. Dx: Type 2 DM - Controlled E11.9 Insulin: Yes OXYGEN, HOME THERAPY, Inhale as instructed as directed. Uses at 2 l/m via nasal cannula during the day and 4 l/m at night Blood-Glucose Meter monitoring kit Check sugars daily and as needed (Freestyle Lite is what she hashad) Lancets lancets Test blood sugar(s) 4 times daily. Dx: E11.9 Insulin: Yes (Patient taking differently: Test blood sugar(s) 4 times daily. Dx: E11.9 Insulin: Yes Uses as needed) Miscellaneous Medical Supply (BLOOD PRESSURE CUFF) 1 Each as needed. Blood pressure Monitor and Cuff, use as directed. Dx: I10 Hypertension flash glucose scanning reader (FREESTYLE TAYLOR 14 DAY READER) Use to check blood sugar 4 times daily estradiol (ESTRACE) 0.01 % (0.1 mg/gram) vaginal cream Use 3 g vaginally two times a week. REVIEW OF SYSTEMS: Review of Systems Constitutional: Negative for chills, fever, malaise/fatigue and weight loss. HENT: Negative for hearing loss and sore throat. Eyes: Negative for blurred vision and double vision. Respiratory: Negative. Cardiovascular: Negative. Genitourinary: Negative for dysuria, frequency, hematuria and urgency. Musculoskeletal: Negative. Skin: Negative. Neurological: Negative for dizziness, seizures, loss of consciousness, weakness and headaches. Endo/Heme/Allergies: Negative for environmental allergies. Does not bruise/bleed easily. Psychiatric/Behavioral: Negative for depression. PHYSICAL EXAMINATION: BP 146/70 Pulse 72 Resp 14 Ht 5' 4 (1.63m) Wt 247 lb (112.0kg) SpO2 94% LMP 04/27/2016 BMI 42.38 kg/(m^2). General: Obese pleasant woman sitting comfortable no apparent distress she is alert and oriented x3 HEENT: Carotid upstrokes are brisk bilateral without bruits. No JVD appreciated but limited examination due to body habitus Pulmonary: Lungs are clear no rales, wheezes, rhonchi Cardiovascular: Normal S1, S2 with regular rate and rhythm. No S4 appreciated. No other murmurs rubs or gallops Extremities: Warm, well-perfused, 2+ lower extremity edema to the knees bilaterally. CARDIOVASCULAR MEDICINE TESTING: Echocardiogram 06/06/2024: - Left ventricular systolic function is normal. EF = 60 5% (visual est.) - There is a small pericardial effusion without tamponade physiology. - Exam was compared with the prior echocardiographic exam performed on 05/07/2022, no significant change. Echocardiogram 05/24/2023: - Exam indication: Shortness of Breath - The left ventricle is normal in size. Left ventricular systolic function is normal. EF = 60 5% (2D biplane) Normal left ventricular diastolic function. - The right ventricle is normal in size. Right ventricular systolic function is normal. - There are no significant valvular abnormalities. - There is a moderate circumferential pericardial effusion. - There is a known small to moderate circumferential pericardial effusion without tamponade physiology. - Limited subcostal views. IVC not seen. - Exam was compared with the prior echocardiographic exam performed on 02/08/2023, no significant change. Echocardiogram 12/29/2022: - Technically difficult exam due to body habitus. - Exam indication: Cardiac murmur - The left ventricle is small. Left ventricular systolic function is normal. EF = 55 5% (visual est.) Grade I left ventricular diastolic dysfunction. - The right ventricle is normal in size. Right ventricular systolic function is normal. - There is a small to moderate circumferential pericardial effusion without tamponade physiology. - No subcostal views. - The patient has not had a prior echocardiographic exam for comparison. CT Chest 07/17/2022: Heart, pericardium, and thoracic vessels: The thoracic aorta and main pulmonary artery are normal in caliber. The cardiac chambers are normal in size. No coronary artery atherosclerotic calcifications are noted, although the study is not optimized for coronary assessment. Small amount of pericardial fluid IMPRESSION: Ms. Romero is a 59 year old woman chronic small to moderate pericardial effusion, hypertension, dyslipidemia, insulin requiring diabetes, prior [id number] smoking history (quit 2016), chronic hypoxic respiratory failure maintained on 2 L home oxygen who presents for routine follow-up. PLAN AND RECOMMENDATIONS: 1. Pericardial effusion - ICD9: 423.9, ICD10: I31.39 (primary diagnosis) Stable on follow-up echocardiogram. Repeat study later this year 2. Chronic diastolic congestive heart failure (HCC) - ICD9: 428.32, 428.0, ICD10: I50.32 Lower extremity edema unaffected by Lasix could represent right heart failure. Will check a BNP. Ifelevated we will consider increasing her Lasix dose - BASIC METABOLIC PANEL - NT PRO BNP 3. Essential hypertension - ICD9: 401.9, ICD10: I10 4. Mixed hyperlipidemia - ICD9: 272.2, ICD10: E78.2 Maintained on atorvastatin 40 mg daily. Last fasting blood work was done November 2023. LDL cholesterol 43 mg/dL 5. PÉREZ (dyspnea on exertion) - ICD9: 786.09, ICD10: R06.09 - NT PRO BNP Ramesh Brewster MD documented in this encounterK[facility]01-13-2025 NoteHNO ID: [id number] Author: RAMESH BREWSTER MD Service: ? Author Type: Physician Type: Progress Notes Filed: 10/16/2024 15:19 Note Text: [facility]Y Cardiology ([facility]) [address] [id number] OUTPATIENT VISIT DATE 10/16/2024 PRIMARY CARE PHYSICIAN: Sarina Adams [address] [place] [address] REFERRING PHYSICIAN: Dr. Adams HISTORY OF PRESENT ILLNESS: Ms. Romero is a 59 year old with extensive medical history including diabetes (insulin requiring), obesity, hypertension, dyslipidemia, chronic hypoxic respiratory failure requiring 2 L of nasal oxygen, and small to moderate chronic pericardial effusion who presents for routine follow-up. Patient suffered a mechanical fall was seen in the emergency room and subsequently diagnosed with a humeral fracture. She had a subsequent ER visit for urinary tract infection. She has had persistent lower extremity edema. She was started on Lasix with only minimal improvement. She has not had symptoms consistent with PND or orthopnea. She denies palpitations, lightheadedness, or syncope. PAST MEDICAL HISTORY Diagnosis Date Chronic hypoxemic respiratory failure (HCC) COVID-19 07/06/2021 HTN (hypertension) Hyperlipidemia 04/05/2014 Hypothyroid 04/19/2014 Kidney stone on left side 04/12/2014 Myasthenia gravis (HCC) OA (osteoarthritis) of hip, bilateral 04/04/2014 Type II or unspecified type diabetes mellitus without mention of complication, uncontrolled 04/05/2014 PAST SURGICAL HISTORY Procedure Laterality Date ESWL 04/25/14 kidney stones ESWL 05/16/14 kidney stones. PAST SURGICAL HISTORY OF c-sections x 2 PAST SURGICAL HISTORY OF appendectomy PAST SURGICAL HISTORY OF tubal ligation REMV CATARACT EXTRACAP,INSERT LENS Left 06/12/2021 Monofocal IOL 17.5 D XCAPSL CTRC RMVL INSJ IO LENS PROSTH W/O ECP Right 05/29/2021 SOCIAL HISTORY Social History Tobacco Use Smoking status: Former Current packs/day: 0.00 Average packs/day: 1 pack/day for 30.0 years (30.0 ttl pk-yrs) Types: Cigarettes Start date: 11/04/1983 Quit date: 11/04/2013 Years since quittin.9 Smokeless tobacco: Never Vaping Use Vaping status: Never Used Substance Use Topics Alcohol use: Not Currently Comment: wine cool every once in a while Drug use: Not Currently Types: Marijuana FAMILY HISTORY Problem Relation Age of Onset Diabetes Mother Parkinson?s Disease Father Cervical Cancer Sister Diabetes Brother Cancer Maternal Grandmother Stomach CA Breast Cancer Maternal Aunt 50's ALLERGIES: ALLERGIES Allergen Reactions Metformin Diarrhea Diarrhea every time takes, even with ER dose Oxycodone GI Upset Percocet [Oxycodone* GI Upset and off balance MEDICATIONS: HYDROcodone-acetaminophen (NORCO) 5-325 mg per tablet Take 1 tablet by mouth four times a day as needed for pain for up to 30 days. Short term increase to 4 times daily as needed due to fall/rotator cuff injury furosemide (LASIX) 40 mg tablet Take 1 tablet by mouth once daily as needed (for swelling). gabapentin (NEURONTIN) 600 mg tablet Take 1 tablet by mouth three times a day for 90 days. dulaglutide (TRULICITY) 4.5 mg/0.5 mL pen injector Inject 4.5 mg subcutaneously one time a week. omeprazole (PRILOSEC) 40 mg capsule Take 1 capsule by mouth once daily. meloxicam (MOBIC) 15 mg tablet Take 1 tablet by mouth once daily as needed for pain. With food. keTORolac (ACULAR) 0.5 % ophthalmic solution EVERY 6 HOURS prednisoLONE acetate (PRED FORTE) 1 % ophthalmic suspension EVERY 6 HOURS promethazine (PHENERGAN) 25 mg tablet Take 25 mg by mouth every 6 hours as needed. empagliflozin (JARDIANCE) 25 mg tablet Take 1 tablet by mouth daily with breakfast. ON HOLD FOLLOWING HOSPITAL DISCHARGE 04/2024 lisinopril 2.5 mg tablet Take 1 tablet by mouth once daily. ON HOLD FOLLOWING HOSPITAL DISCHARGE 04/2024 insulin aspart U-100 (NOVOLOG) 100 unit/mL (3 mL) INJECT 20 UNITS SUBCUTANEOUSLY WITH MEALS THREE TIMES A DAY PLUS SLIDING SCALE #2 (add 2 units for every 50 points above 150 mg/dl) BASED ON PRE-MEAL BLOOD SUGAR (MAX: 96 UNITS PER DAY) insulin degludec (TRESIBA FLEXTOUCH U-200) 200 unit/mL (3 mL) injection Inject 80 Units subcutaneously daily at bedtime. levothyroxine (SYNTHROID) 200 mcg tablet Take 1.5 tablets by mouth daily before breakfast. blood sugar diagnostic (FREESTYLE LITE STRIPS) test strip Test blood sugar(s) 4 times daily. Dx: Other DM Code E11.40 Insulin: Yes flash glucose sensor (FREESTYLE TAYLOR 14 DAY SENSOR) kit Use to check blood sugar 4 times daily. Please give 2 sensors per refill dicyclomine (BENTYL) 10 mg capsule Take 1 capsule by mouth before meals and at bedtime. for abdominal pain Fenofibrate (LOFIBRA) 160 mg tablet Take 1 tablet by mouth once daily. rosuvastati (more content not included)...[facility]01-08-2025 Telephone encounter Note* Telephone Encounter - Sarina Adams MD - 10/11/2024 5:58 PM EST The following approved medication requests have been transmitted electronically. Requested Prescriptions Signed Prescriptions Disp Refills HYDROcodone-acetaminophen (NORCO) 5-325 mg per tablet 120 tablet 0 Sig: Take 1 tablet by mouth four times a day as needed for pain for up to 30 days. Short term increase to 4 times daily as needed due to fall/rotator cuff injury Authorizing Provider: SARINA ADAMS MD [facility]01-08-2025 Miscellaneous Notes* Telephone Encounter - Sarina Adams MD - 10/11/2024 5:58 PM EST The following approved medication requests have been transmitted electronically. Requested Prescriptions Signed Prescriptions Disp Refills HYDROcodone-acetaminophen (NORCO) 5-325 mg per tablet 120 tablet 0 Sig: Take 1 tablet by mouth four times a day as needed for pain for up to 30 days. Short term increase to 4 times daily as needed due to fall/rotator cuff injury Authorizing Provider: SARINA ADAMS MD * Telephone Encounter - Tabatha Up LPN - 10/11/2024 5:03 PM EST Printed encounter for Provider to address. Tabatha Up LPN * Telephone Encounter - Katherin Chowdhury - 10/09/2024 12:58 PM EST Prescription Refill Information The patient has been identified by name and date of : Yes Caregiver verified no other encounters exist for this prescription request: Yes Caregiver confirmed with patient/requestor that no other refills are due, in the near future, with this provider at this time: Yes The last office visit in the department: 06/14/2024 Does the patient have a future office visit with this provider/department: No Requested Prescriptions Pending Prescriptions Disp Refills HYDROcodone-acetaminophen (NORCO) 5-325 mg per tablet 120 tablet 0 Sig: Take 1 tablet by mouth four times a day as needed for pain for up to 30 days. Short term increase to 4 times daily as needed due to fall/rotator cuff injury Katherin Lagos October 09, 2024 12:59 PM [facility] Telephone encounter Note * Telephone Encounter - Tabatha Up LPN - 10/11/2024 5:03 PM EST Printed encounter for Provider to address. Tabatha Up LPN [facility]01-06-2025 Telephone encounter Note* Telephone Encounter - Katherin Chowdhury - 10/09/2024 12:58 PM EST Prescription Refill Information The patient has been identified by name and date of : Yes Caregiver verified no other encounters exist for this prescription request: Yes Caregiver confirmed with patient/requestor that no other refills are due, in the near future, with this provider at this time: Yes The last office visit in the department: 06/14/2024 Does the patient have a future office visit with this provider/department: No Requested Prescriptions Pending Prescriptions Disp Refills HYDROcodone-acetaminophen (NORCO) 5-325 mg per tablet 120 tablet 0 Sig: Take 1 tablet by mouth four times a day as needed for pain for up to 30 days. Short term increase to 4 times daily as needed due to fall/rotator cuff injury Katherin Lagos October 09, 2024 12:59 PM [facility]12-11-2024 Telephone encounter Note* Telephone Encounter - Mayte Vinson - 09/13/2024 10:30 AM EST Patient has been identified by name and date of : Yes Patient phones for refill(s): Requested Prescriptions Pending Prescriptions Disp Refills furosemide (LASIX) 40 mg tablet Sig: Take 1 tablet by mouth once daily as needed (for swelling). Date of last office visit in primary care: 06/14/2024 Date of next office visit in primary care: 09/19/2024 Please advise. Thank you. Mayte Vinson. [facility]12-11-2024 Miscellaneous Notes* Telephone Encounter - Mayte Vinson - 09/13/2024 10:30 AM EST Patient has been identified by name and date of : Yes Patient phones for refill(s): Requested Prescriptions Pending Prescriptions Disp Refills furosemide (LASIX) 40 mg tablet Sig: Take 1 tablet by mouth once daily as needed (for swelling). Date of last office visit in primary care: 06/14/2024 Date of next office visit in primary care: 09/19/2024 Please advise. Thank you. Mayte Vinson. documented in this encounterK[facility]12-09-2024 Telephone encounter Note * Telephone Encounter - Denise Alvarado APRN.CNS - 09/11/2024 5:06 PM EST ok [facility]12-09-2024 Miscellaneous Notes* Telephone Encounter - Denise Alvarado APRN.CNS - 09/11/2024 5:06 PM EST ok * Telephone Encounter - Katherin Chowdhury - 09/11/2024 2:48 PM EST Patient is calling to advise she is completely out of this medication, can this please be sent to the pharmacy today? Krista Alas * Telephone Encounter - Sophie Wolfe - 09/08/2024 9:03 AM EST Prescription Refill Information The patient has been identified by name and date of : Yes Caregiver verified no other encounters exist for this prescription request: Yes Caregiver confirmed with patient/requestor that no other refills are due, in the near future, with this provider at this time: Yes The last office visit in the department: 06-14-24 Does the patient have a future office visit with this provider/department: Yes Requested Prescriptions Pending Prescriptions Disp Refills HYDROcodone-acetaminophen (NORCO) 5-325 mg per tablet 120 tablet 0 Sig: Take 1 tablet by mouth four times a day as needed for pain for up to 30 days. Short term increase to 4 times daily as needed due to fall/rotator cuff injury Sophie Wolfe September 08, 2024 9:03 AM documented in this encounterK[facility]12-09-2024 Telephone encounter Note * Telephone Encounter - Katherin Chowdhury - 09/11/2024 2:48 PM EST Patient is calling to advise she is completely out of this medication, can this please be sent to the pharmacy today? Krista Alas [facility]12-06-2024 Telephone encounter Note* Telephone Encounter - Sophie Wolfe - 09/08/2024 9:03 AM EST Prescription Refill Information The patient has been identified by name and date of : Yes Caregiver verified no other encounters exist for this prescription request: Yes Caregiver confirmed with patient/requestor that no other refills are due, in the near future, with this provider at this time: Yes The last office visit in the department: 06-14-24 Does the patient have a future office visit with this provider/department: Yes Requested Prescriptions Pending Prescriptions Disp Refills HYDROcodone-acetaminophen (NORCO) 5-325 mg per tablet 120 tablet 0 Sig: Take 1 tablet by mouth four times a day as needed for pain for up to 30 days. Short term increase to 4 times daily as needed due to fall/rotator cuff injury Sophie Wolfe September 08, 2024 9:03 AM [facility]11-19-2024 Telephone encounter Note* Telephone Encounter - Maylin Dealney LPN - 08/22/2024 8:35 AM EST REC'D COMPLETED AND FAXED BACK. [facility]11-19-2024 Miscellaneous Notes* Telephone Encounter - Maylin Delaney LPN - 08/22/2024 8:35 AM EST REC'D COMPLETED AND FAXED BACK. * Telephone Encounter - Katherin Chowdhury - 08/21/2024 2:43 PM EST Samantha is calling Sarina Adams MD today to request an order be placed for [facility] urology for the following: Adult diapers (pull up) large Large pads Per patient these ship to patient house Patient has been identified by name and birthdate. Duration of symptoms: ongoing Person calling: self Call patient at: at home [phone] (home) [phone] (cell) Was an appointment scheduled: No Closing statement: Results or non-symptom based questions: Thank you for calling [facility], your call will be returned within the next business day. Katherin Lagos documented in this encounterK[facility]11-18-2024 Telephone encounter Note * Telephone Encounter - Katherin Chowdhury - 08/21/2024 2:43 PM EST Samantha is calling Sarina Adams MD today to request an order be placed for [facility] urology for the following: Adult diapers (pull up) large Large pads Per patient these ship to patient house Patient has been identified by name and birthdate. Duration of symptoms: ongoing Person calling: self Call patient at: at home [phone] (home) [phone] (cell) Was an appointment scheduled: No Closing statement: Results or non-symptom based questions: Thank you for calling [facility], your call will be returned within the next business day. Katherin Lagos [facility]11-08-2024 Telephone encounter Note* Telephone Encounter - Cole Boewr APRN.CNP - 08/11/2024 11:16 AM EST PDMP website checked and validated. All prescriptions have been APPROPRIATELY filled. No suspiciousactivity was identified. 08/11/2024 by Cole Bower APRN.CNP [facility]11-08-2024 Miscellaneous Notes* Telephone Encounter - Cole Bower APRN.CNP - 08/11/2024 11:16 AM EST PDMP website checked and validated. All prescriptions have been APPROPRIATELY filled. No suspiciousactivity was identified. 08/11/2024 by Cole Bower APRN.CNP * Telephone Encounter - Corina Pacheco - 08/11/2024 8:57 AM EST Prescription Refill Information The patient has been identified by name and date of : Yes Caregiver verified no other encounters exist for this prescription request: Yes Caregiver confirmed with patient/requestor that no other refills are due, in the near future, with this provider at this time: Yes The last office visit in the department: 06-14-24 Does the patient have a future office visit with this provider/department: Yes 09/19/24 Requested Prescriptions Pending Prescriptions Disp Refills HYDROcodone-acetaminophen (NORCO) 5-325 mg per tablet 120 tablet 0 Sig: Take 1 tablet by mouth four times a day as needed for pain for up to 30 days. Short term increase to 4 times daily as needed due to fall/rotator cuff injury gabapentin (NEURONTIN) 600 mg tablet 90 tablet 2 Sig: Take 1 tablet by mouth three times a day for 90 days. dulaglutide (TRULICITY) 4.5 mg/0.5 mL pen injector 6 mL 3 Sig: Inject 4.5 mg subcutaneously one time a week. Corina Hinkle August 11, 2024 8:58 AM documented in this encounterK[facility]11-08-2024 Telephone encounter Note * Telephone Encounter - Corina Pacheco - 08/11/2024 8:57 AM EST Prescription Refill Information The patient has been identified by name and date of : Yes Caregiver verified no other encounters exist for this prescription request: Yes Caregiver confirmed with patient/requestor that no other refills are due, in the near future, with this provider at this time: Yes The last office visit in the department: 06-14-24 Does the patient have a future office visit with this provider/department: Yes 09/19/24 Requested Prescriptions Pending Prescriptions Disp Refills HYDROcodone-acetaminophen (NORCO) 5-325 mg per tablet 120 tablet 0 Sig: Take 1 tablet by mouth four times a day as needed for pain for up to 30 days. Short term increase to 4 times daily as needed due to fall/rotator cuff injury gabapentin (NEURONTIN) 600 mg tablet 90 tablet 2 Sig: Take 1 tablet by mouth three times a day for 90 days. dulaglutide (TRULICITY) 4.5 mg/0.5 mL pen injector 6 mL 3 Sig: Inject 4.5 mg subcutaneously one time a week. Corina Hinkle August 11, 2024 8:58 AM [facility]10-29-2024 Telephone encounter Note* Telephone Encounter - Rosa Elena Deluca LPN - 08/01/2024 10:57 AM EDT Home care Certification Form 485 received from [facility]. For cert dates 05/11/24-07/09/24 that were signed on 06/20/24. New Certification Patient's home health 485 form / care plan for stated certification period reviewed and signed. Relevant medical records were reviewed. No changes were indicated [facility]10-29-2024 Miscellaneous Notes* Telephone Encounter - Rosa Elena Deluca LPN - 08/01/2024 10:57 AM EDT Home care Certification Form 485 received from [facility]. For cert dates 05/11/24-07/09/24 that were signed on 06/20/24. New Certification Patient's home health 485 form / care plan for stated certification period reviewed and signed. Relevant medical records were reviewed. No changes were indicated documented in this encounterK[facility]10-21-2024 Telephone encounter Note * Telephone Encounter - Cole Bower APRN.CNP - 07/24/2024 7:30 AM EDT Joe, dilma, bp has been controlled in the office so we will monitor. [facility]10-21-2024 Miscellaneous Notes* Telephone Encounter - Cole Bower APRN.CNP - 07/24/2024 7:30 AM EDT Joe, noted, bp has been controlled in the office so we will monitor. * Telephone Encounter - Alicja Robin RN - 07/22/2024 11:02 AM EDT Called and talked with [place], and she reports her BP machine needs new batteries. Pt states she wouldn't be able to get new batteries until the of the month. [facility] but she remembers her last BP reading being 140s/?. Pt was told once she gets new batteriesfor her BP machine to write down her readings. Called and left a detailed voicemail notifying Libra from [facility] of providers message. Clinic phone number was left for her to call us back and answer provider question. Alicja Robin RN * Telephone Encounter - Rosa Elena Deluca LPN - 07/12/2024 1:37 PM EDT Left a message for both Libra and Samantha to call office with updated reading. * Telephone Encounter - Cole Bower APRN.ADVISORY SOFTWARE ENGINEER - 07/12/2024 1:25 PM EDT Can we get an update on most recent blood pressure either from [facility] or patient? Thanks * Telephone Encounter - Iraida Pena RN - 07/07/2024 3:58 PM EDT Marielle from [facility] calls with an out of parameters blood pressure of 167/91; pulse 95 O2 97. Patient was asymptomatic with no complaints. Please review and advise, Iraida Pena RN documented in this encounterK[facility]10-19-2024 Telephone encounter Note * Telephone Encounter - Alicja Robin RN - 07/22/2024 11:02 AM EDT Called and talked with Samantha, and she reports her BP machine needs new batteries. Pt states she wouldn't be able to get new batteries until the 1st of the month. [facility] but she remembers her last BP reading being 140s/?. Pt was told once she gets new batteriesfor her BP machine to write down her readings. Called and left a detailed voicemail notifying Libra from [facility] of providers message. Clinic phone number was left for her to call us back and answer provider question. Alicja Robin RN [facility]10-16-2024 Telephone encounter Note* Telephone Encounter - Nadine Olson LPN - 07/19/2024 2:06 PM EDT Patient has been identified by name and date of : Patient phones for refill(s): Requested Prescriptions Pending Prescriptions Disp Refills omeprazole (PRILOSEC) 40 mg capsule 30 capsule 5 Sig: Take 1 capsule by mouth once daily. meloxicam (MOBIC) 15 mg tablet 30 tablet 5 Sig: Take 1 tablet by mouth once daily as needed for pain. With food. Date of last office visit in primary care: 06/08/24 Date of next office visit in primary care: Visit date not found Please advise. Thank you. Nadine Olson LPN. [facility]10-16-2024 Miscellaneous Notes* Telephone Encounter - Nadine Ann LPN - 07/19/2024 2:06 PM EDT Patient has been identified by name and date of : Patient phones for refill(s): Requested Prescriptions Pending Prescriptions Disp Refills omeprazole (PRILOSEC) 40 mg capsule 30 capsule 5 Sig: Take 1 capsule by mouth once daily. meloxicam (MOBIC) 15 mg tablet 30 tablet 5 Sig: Take 1 tablet by mouth once daily as needed for pain. With food. Date of last office visit in primary care: 06/08/24 Date of next office visit in primary care: Visit date not found Please advise. Thank you. Nadine Olson LPN. documented in this encounterK[facility]10-14-2024 Telephone encounter Note * Telephone Encounter - Carmina Sylvester RP - 07/17/2024 11:59 AM EDT Called patient for scheduled pharmacy phone follow up; unable to reach after multiple attempts. Left VM with phone number to reschedule appointment. This is the 3rd no show in a row. If patient returns call, visit will be rescheduled at that time. Carmina Sylvester PharmD, JAVIER Primary Care Clinical Hose Tender [facility] Work Phone: [phone] 201-643710-14-2024 Miscellaneous Notes* Telephone Encounter - Carmina Sylvester RP - 07/17/2024 11:59 AM EDT Called patient for scheduled pharmacy phone follow up; unable to reach after multiple attempts. Left VM with phone number to reschedule appointment. This is the 3rd no show in a row. If patient returns call, visit will be rescheduled at that time. Carmina Sylvester PharmD, JAVIER Primary Care Clinical Hose Tender documented in this encounterK[facility]10-09-2024 Telephone encounter Note * Telephone Encounter - Cole Bower APRN.CNP - 07/12/2024 4:27 PM EDT PDMP website checked and validated. All prescriptions have been APPROPRIATELY filled. No suspiciousactivity was identified. 07/12/2024 by Cole Bower APRN.CNP [facility]10-09-2024 Miscellaneous Notes* Telephone Encounter - Cole Bower APRN.CNP - 07/12/2024 4:27 PM EDT PDMP website checked and validated. All prescriptions have been APPROPRIATELY filled. No suspiciousactivity was identified. 07/12/2024 by Cole Bower APRN.ADVISORY SOFTWARE ENGINEER * Telephone Encounter - Rosa Elena Deluca LPN - 07/12/2024 3:56 PM EDT Prescription Refill Information The patient has been identified by name and date of : Yes Caregiver verified no other encounters exist for this prescription request: Yes Caregiver confirmed with patient/requestor that no other refills are due, in the near future, with this provider at this time: Yes The last office visit in the department: 06/14/24 Does the patient have a future office visit with this provider/department: Yes 09/19/24 Requested Prescriptions Pending Prescriptions Disp Refills HYDROcodone-acetaminophen (NORCO) 5-325 mg per tablet 120 tablet 0 Sig: Take 1 tablet by mouth four times a day as needed for pain for up to 30 days. Short term increase to 4 times daily as needed due to fall/rotator cuff injury Rosa Elena Deluca LPN July 12, 2024 3:57 PM * Telephone Encounter - Nadine Dozier - 07/12/2024 3:23 PM EDT Patient called to refill her Reynolds rx; not on current med list. Uses [facility] in [place]. documented in this encounterK[facility]10-09-2024 Telephone encounter Note * Telephone Encounter - Rosa Elena Deluca LPN - 07/12/2024 3:56 PM EDT Prescription Refill Information The patient has been identified by name and date of : Yes Caregiver verified no other encounters exist for this prescription request: Yes Caregiver confirmed with patient/requestor that no other refills are due, in the near future, with this provider at this time: Yes The last office visit in the department: 06/14/24 Does the patient have a future office visit with this provider/department: Yes 09/19/24 Requested Prescriptions Pending Prescriptions Disp Refills HYDROcodone-acetaminophen (NORCO) 5-325 mg per tablet 120 tablet 0 Sig: Take 1 tablet by mouth four times a day as needed for pain for up to 30 days. Short term increase to 4 times daily as needed due to fall/rotator cuff injury Rosa Elena Deluca LPN July 12, 2024 3:57 PM [facility]10-09-2024 Telephone encounter Note* Telephone Encounter - Nadine Dozier - 07/12/2024 3:23 PM EDT Patient called to refill her Reynolds rx; not on current med list. Uses [facility] in [place]. [facility]10-09-2024 Telephone encounter Note* Telephone Encounter - Rosa Elena Deluca LPN - 07/12/2024 1:37 PM EDT Left a message for both Libra and Samantha to call office with updated reading. [facility]10-09-2024 Telephone encounter Note* Telephone Encounter - Cole Bower APRN.CNP - 07/12/2024 1:25 PM EDT Can we get an update on most recent blood pressure either from [facility] or patient? Thanks [facility]10-07-2024 Telephone encounter Note* Telephone Encounter - Carmina Sylvester RPh - 07/10/2024 11:18 AM EDT Patient will need to reschedule phone appointment, as the rest of my schedule is full for today. Next available appointment this week would be Wednesday afternoon (see [facility] schedule) Carmina Sylvester PharmD, BCACP Primary Care Clinical Hose Tender [facility] Work Phone: [phone] 281-389110-07-2024 Miscellaneous Notes* Telephone Encounter - Carmina Sylvester RPh - 07/10/2024 11:18 AM EDT Patient will need to reschedule phone appointment, as the rest of my schedule is full for today. Next available appointment this week would be Wednesday afternoon (see [facility] schedule) Carmina Sylvester PharmD, BCACP Primary Care Clinical Hose Tender * Telephone Encounter - Ruby Coffman LPN - 07/10/2024 10:46 AM EDT Patient stated that she thinks she missed her appointment today with pharmacist. PATIENT stated that she was with the home occupational therapist and she also did not recognize phone number. Please review and advise what you want patient to do? Ruby Coffman LPN documented in this encounterK[facility]10-07-2024 Telephone encounter Note * Telephone Encounter - Ruby Coffman LPN - 07/10/2024 10:46 AM EDT Patient stated that she thinks she missed her appointment today with pharmacist. PATIENT stated that she was with the home occupational therapist and she also did not recognize phone number. Please review and advise what you want patient to do? Ruby Coffman LPN [facility]10-07-2024 Telephone encounter Note* Telephone Encounter - Carmina Sylvester RPh - 07/10/2024 10:13 AM EDT Called patient for scheduled pharmacy phone follow up; unable to reach after multiple attempts. Left VM with phone number to reschedule appointment. Carmina Sylvester PharmD, JAVIER Primary Care Clinical Hose Tender [facility] Work Phone: [phone] Miscellaneous Notes* Telephone Encounter - Carmina Sylvester RPh - 07/10/2024 10:13 AM EDT Called patient for scheduled pharmacy phone follow up; unable to reach after multiple attempts. Left VM with phone number to reschedule appointment. Carmina Sylvester PharmD, JAVIER Primary Care Clinical Hose Tender documented in this encounterK[facility]10-04-2024 Telephone encounter Note * Telephone Encounter - Iraida Pena RN - 07/07/2024 3:58 PM EDT Marielle from [facility] calls with an out of parameters blood pressure of 167/91; pulse 95 O2 97. Patient was asymptomatic with no complaints. Please review and advise, Iraida Pena RN [facility]10-04-2024 Telephone encounter Note* Telephone Encounter - Carmina Sylvester RPh - 07/07/2024 10:39 AM EDT Called patient for scheduled pharmacy phone follow up; unable to reach after multiple attempts. Left VM with phone number to reschedule appointment. Will send patient MC message as well. Carmina Sylvester PharmD, JAVIER Primary Care Clinical Hose Tender [facility] Work Phone: [phone] Miscellaneous Notes* Telephone Encounter - Carmina Sylvester RPh - 07/07/2024 10:39 AM EDT Called patient for scheduled pharmacy phone follow up; unable to reach after multiple attempts. Left with phone number to reschedule appointment. Will send patient MC message as well. Carmina Sylvester, PharmD, BCACP Primary Care Clinical Hose Tender documented in this encounterK[facility]10-[facility] Telephone encounter Note * Telephone Encounter - Kerri Abdi RN - 07/05/2024 11:45 AM EDT [facility] HH- reporting updated POC: reports insurance approved 3 more visits. Will see patient1 time this week, and 2 times next week. No call back needed. [facility]10-02-2024 Miscellaneous Notes* Telephone Encounter - Kerri Abdi RN - 07/05/2024 11:45 AM EDT [facility] reports insurance approved 3 more visits. Will see patient1 time this week, and 2 times next week. No call back needed. documented in this encounterK[facility]09-30-2024 Telephone encounter Note * Telephone Encounter - Ina Loera LPN - 07/03/2024 2:38 PM EDT Kellen, Home Health physical therapist called and states she need more information about this patientas she is supposed to be seen Wednesday for PT. She states the patient told them she has a hairlinefracture and is not supposed to raise her arm above her head and use a sling for comfort. PT just needs more details about her restrictions and orders for treatment. Kellen can be contacted at [phone] and a voicemail can be left as it is secure. Ina Loera LPN [facility]09-30-2024 Miscellaneous Notes* Telephone Encounter - Ina Loera LPN - 07/03/2024 2:38 PM EDT Kellen, Home Health physical therapist called and states she need more information about this patientas she is supposed to be seen Wednesday for PT. She states the patient told them she has a hairlinefracture and is not supposed to raise her arm above her head and use a sling for comfort. PT just needs more details about her restrictions and orders for treatment. Kellen can be contacted at [phone] and a voicemail can be left as it is secure. Ina Loera LPN documented in this encounterK[facility]09-24-2024 Telephone encounter Note * Telephone Encounter - Denise Alvarado APRN.CNS - 06/27/2024 9:02 AM EDT noted, has appt scheduled [facility]09-24-2024 Miscellaneous Notes* Telephone Encounter - Denise Alvarado APRN.CNS - 06/27/2024 9:02 AM EDT noted, has appt scheduled * Telephone Encounter - Mara Degroot LPN - 06/27/2024 8:48 AM EDT Patient notified of providers message and verbalized understanding. Patient states that she has been taking the furosemide 40 mg as needed for the swelling but has been taking nearly everyday recently. Patient made an appointment and will do labs prior to appointment * Telephone Encounter - Mara Degroot LPN - 06/26/2024 3:12 PM EDT No answer and voice mailbox is full. * Telephone Encounter - AlvaradoDenise APRN.QUALITY ASSURANCE PRACTICE MANAGER - 06/26/2024 8:12 AM EDT Check to see how often she is taking furosemide 40 mg. BUN is elevated, Creatinine trending downward. Needs to taking in 64 ounces of fluid daily to help kidney function normalize. Verify taking DM medications as ordered. Glucose trending upward. Schedule 3 mo follow up Sarina Adams MD or me for recheck of kidney function and DM. Labs at this visit, prior if possible. Latest Ref Rng 05/16/2024 06/06/2024 06/14/2024 WBC 3.70 - 11.00 k/uL 4.79 5.82 RBC 3.90 - 5.20 m/uL 3.74 (L) 4.67 Hemoglobin 11.5 - 15.5 g/dL 10.7 (L) 13.3 Hematocrit 36.0 - 46.0 % 34.5 (L) 42.0 MCV 80.0 - 100.0 fL 92.2 89.9 MCH 26.0 - 34.0 pg 28.6 28.5 MCHC 30.5 - 36.0 g/dL 31.0 31.7 RDW-CV 11.5 - 15.0 % 13.9 14.1 Platelet Count 150 - 400 k/uL 136 (L) 173 MPV 9.0 - 12.7 fL 11.6 10.8 Neut% % 70.6 Abs Neut (ANC) 1.45 - 7.50 k/uL 3.38 Lymph% % 17.5 Abs Lymph 1.00 - 4.00 k/uL 0.84 (L) [place]% % 6.1 Abs [place] <0.87 k/uL 0.29 Eosin% % 5.0 Abs Eosin <0.46 k/uL 0.24 Baso% % 0.4 Abs Baso <0.11 k/uL <0.03 Immature Gran % % 0.4 IMMATURE GRANS (ABS) <0.10 k/uL <0.03 NRBC /100 WBC 0.0 Absolute nRBC <0.01 k/uL <0.01 <0.01 DTYPE Auto Protein, Total 6.3 - 8.0 g/dL 6.4 7.6 Albumin 3.9 - 4.9 g/dL 3.6 (L) 4.3 Calcium 8.5 - 10.2 mg/dL 9.6 10.3 (H) 9.9 Bilirubin, Total 0.2 - 1.3 mg/dL 0.2 0.3 Alkaline Phosphatase 34 - 123 U/L 73 94 AST 13 - 35 U/L 27 20 ALT 7 - 38 U/L 26 18 Glucose 74 - 99 mg/dL 206 (H) 216 (H) 243 (H) BUN 7 - 21 mg/dL 21 33 (H) 40 (H) Creatinine 0.58 - 0.96 mg/dL 0.97 (H) 1.16 (H) 1.06 (H) Sodium 136 - 144 mmol/L 142 142 139 Potassium 3.7 - 5.1 mmol/L 4.0 4.0 4.5 Chloride 98 - 107 mmol/L 104 99 98 CO2 22 - 30 mmol/L 29 29 30 Anion Gap 8 - 15 mmol/L 9 14 11 eGFR >=60 mL/min/1.73m 68 55 (L) 61 Total Cholesterol, Nonfasting <200 mg/dL 148 Triglycerides, Nonfasting <150 mg/dL 257 (H) HDL Cholesterol, Nonfasting >39 mg/dL 43 LDL Cholesterol, Nonfasting <100 mg/dL 54 Non HDL Cholesterol, Nonfasting <130 mg/dL 105 VLDL Cholesterol, Nonfasting <30 mg/dL 51 (H) Total Chol/HDL Ratio, Nonfasting <5.10 mg/dL 3.44 LDL/HDL Ratio, Nonfasting <2.54 mg/dL 1.26 Hemoglobin A1C 4.3 - 5.6 % 9.7 (H) 8.7 (H) Estimated Average Glucose mg/dL 232 203 TSH 0.270 - 4.200 mIU/L 7.640 (H) 27.100 (H) Vitamin D 25 Hydroxy 31.0 - 80.0 ng/mL 38.8 38.0 Free T3 2.3 - 4.1 pg/mL 2.5 2.4 Free T4 0.9 - 1.7 ng/dL 1.4 1.0 Legend: (L) Low (H) High documented in this encounterK[facility]09-24-2024 Telephone encounter Note * Telephone Encounter - Mara Degroot LPN - 06/27/2024 8:48 AM EDT Patient notified of providers message and verbalized understanding. Patient states that she has been taking the furosemide 40 mg as needed for the swelling but has been taking nearly everyday recently. Patient made an appointment and will do labs prior to appointment [facility]09-23-2024 Telephone encounter Note* Telephone Encounter - Mara Degroot LPN - 06/26/2024 3:12 PM EDT No answer and voice mailbox is full. [facility]09-23-2024 History of Present illness Narrative* Josy Del Rosario RT(Jerardo) - 06/26/2024 3:10 PM EDT Radiology Service Progress Note PATIENT NAME: Samantha Romero DATE OF SERVICE: June 26, 2024 TIME: 3:23 PM PATIENT IDENTITY VERIFICATION COMPLETED USING TWO (2) IDENTIFIERS: Name and Date of confirmedby patient verbally. FALL SCREENING: Has the patient had 2 falls in the last year or 1 fall with injury or currently using an Ambulatory Assistive Device (Walker, Cane, Wheelchair, Crutches, etc.)? Yes, Patient High Riskfor Falls What interventions were put in place to prevent falls during this visit? Offered Assistance with Transfers/Clothing, Instructed Patient to Remain Seated (Not on Exam Table) Until Exam, and Increased Observations by Caregivers PATIENT GENDER DATA: Female. status: : No status: NO. PATIENT RELEVANT IMPLANT DATA REVIEWED: Yes PATIENT PRESENTS WITH AN IMPLANTABLE OR ATTACHED VENDING MACHINE FILLER: No RADIOLOGY DEPARTMENT: General X-ray: Exam(s) Completed: Upper Extremity X- Ray(s): Shoulder, AP / TRUE AP left PERIPHERAL IV DATA: Not applicable SIGNED BY: RT Lucas(R) June 26, 2024 3:23 PM documented in this encounterK[facility]09-23-2024 History of Present illness Narrative* Klaus Hernandez MD - 06/26/2024 2:31 PM EDT Klaus Hernandez MD Department of Orthopaedics Orthopaedics [address] [facility] [address] Dept: [phone] Dept June 26, 2024 CHIEF COMPLAINT: New and Pain of the Left Shoulder and Referred by Cole Bower HPI Patient here for evaluation left shoulder pain. Patient states on 06/02 she lost her balance and fell landing on her left side. Seen at [facility] ED after her fall and admitted due to low blood pressure. Saw Cole Bower on 06/14 and had x-rays done. Patient has been wearing a sling for comfort when outside the house. She has home health twice a week and they have been giving her therapy and home exercises to do. Son with patient today. Taking Hydrocodone for her back pain and helps her shoulder pain. ASSESSMENT: S42.295A Other closed nondisplaced fracture of proximal end of left humerus, initial encounter (primary encounter diagnosis) S46.002D Injury of left rotator cuff, subsequent encounter PLAN: We had a lengthy discussion about proximal humerus fracture. Will continue follow-up. No sling needed at this time. Gentle range of motion at expected. FOLLOW UP INSTRUCTIONS: Will see her back for repeat imaging in 2 to 3 weeks Ms. Samantha Romero was advised as to contrast therapies and/or to take analgesics/anti-inflammatoriesas needed and all contraindications were reviewed. OBJECTIVE: Ms. Samantha Romero is a pleasant 58 year old in no apparent distress. Gen:LMP 04/27/2016 nl development, obese, no deformities ENT: Normocephalic, normal hearing, moist mucosa CV: Pulses:Radial= 2+ and symmetric, capillary refill < 2 secs, no peripheral edema/varicosities Skin: no rash, bruising or lesions. Good turgor. Psych: cooperative and appropriate, alert and oriented x 3, good mood and affect. Musculoskeletal: Gentle range of motion with internal and external rotation at the waist without any significant pain. Limited forward elevation and abduction, appropriately. Neurovascular exam intact. IMAGING: * * *Final Report* * * DATE OF EXAM: Jun 26 2024 3:34PM WRX [id number] - XR SHOULDER 2V AP/TRUE AP LT / PROCEDURE REASON: Other closed nondisplaced fracture of proximal end of left humerus, initial enco * * * * Physician Interpretation * * * * PROCEDURE: Left shoulder INDICATION: Other closed nondisplaced fracture of proximal end of left humerus, initial encounter .Closed nondisplaced fracture of proximal end of left humerus TECHNIQUE: XR SHOULDER 2V AP/TRUE AP LT COMPARISON: 06/14/2024 FINDINGS: Stable, mildly impacted humeral neck fracture. Evidence for interval healing. Joint spaces and acromiohumeral interval are maintained. Supporting Subjective Information Below: Past Medical History: PAST MEDICAL HISTORY Diagnosis Date Chronic hypoxemic respiratory failure (HCC) COVID-19 07/06/2021 HTN (hypertension) Hyperlipidemia 04/05/2014 Hypothyroid 04/19/2014 Kidney stone on left side 04/12/2014 Myasthenia gravis (HCC) OA (osteoarthritis) of hip, bilateral 04/04/2014 Type II or unspecified type diabetes mellitus without mention of complication, uncontrolled 04/05/2014 Past Surgical History: PAST SURGICAL HISTORY Procedure Laterality Date ESWL 04/25/14 kidney stones ESWL 05/16/14 kidney stones. PAST SURGICAL HISTORY OF c-sections x 2 PAST SURGICAL HISTORY OF appendectomy PAST SURGICAL HISTORY OF tubal ligation REMV CATARACT EXTRACAP,INSERT LENS Left 06/12/2021 Monofocal IOL 17.5 D XCAPSL CTRC RMVL INSJ IO LENS PROSTH W/O ECP Right 05/29/2021 Family History: FAMILY HISTORY Problem Relation Age of Onset Diabetes Mother Parkinson s Disease Father Cervical Cancer Sister Diabetes Brother Cancer Maternal Grandmother Stomach CA Breast Cancer Maternal Aunt 50's Social History: Social History Tobacco Use Smoking status: Former Current packs/day: 0.00 Average packs/day: 1 pack/day for 30.0 years (30.0 ttl pk-yrs) Types: Cigarettes Start date: 11/04/1983 Quit date: 11/04/2013 Years since quittin.6 Smokeless tobacco: Never Vaping Use Vaping status: Never Used Substance Use Topics Alcohol use: Not Currently Comment: wine cool every once in a while Drug use: Not Currently Types: Marijuana Medications: Current Outpatient Medications Medication Sig furosemide (LASIX) 40 mg tablet Take 1 tablet by mouth once daily as needed (for swelling). keTORolac (ACULAR) 0.5 % ophthalmic solution EVERY 6 HOURS prednisoLONE acetate (PRED FORTE) 1 % ophthalmic suspension EVERY 6 HOURS promethazine (PHENERGAN) 25 mg tablet Take 25 mg by mouth every 6 hours as needed. empagliflozin (JARDIANCE) 25 mg tablet Take 1 tablet by mouth daily with breakfast. ON HOLD FOLLOWING HOSPITAL DISCHARGE 04/2024 lisinopril 2.5 mg tablet Take 1 tablet by mouth once daily. ON HOLD FOLLOWING HOSPITAL DISCHARGE 04/2024 gabapentin (NEURONTIN) 600 mg tablet Take 1 tablet by mouth three times a day for 90 days. HYDROcodone-acetaminophen (NORCO) 5-325 mg per tablet Take 1 tablet by mouth four times a day as needed for pain for up to 30 days. Short term increase to 4 times daily as needed due to fall/rotator cuff injury insulin aspart U-100 (NOVOLOG) 100 unit/mL (3 mL) INJECT 20 UNITS SUBCUTANEOUSLY WITH MEALS THREE TIMES A DAY PLUS SLIDING SCALE #2 (add 2 units for every 50 points above 150 mg/dl) BASED ON PRE-MEAL BLOOD SUGAR (MAX: 96 UNITS PER DAY) insulin degludec (TRESIBA FLEXTOUCH U-200) 200 unit/mL (3 mL) injection Inject 80 Units subcutaneously daily at bedtime. levothyroxine (SYNTHROID) 200 mcg tablet Take 1.5 tablets by mouth daily before breakfast. blood sugar diagnostic (FREESTYLE LITE STRIPS) test strip Test blood sugar(s) 4 times daily. Dx: Other DM Code E11.40 Insulin: Yes meloxicam (MOBIC) 15 mg tablet Take 1 tablet by mouth once daily as needed for pain. With food. omeprazole (PRILOSEC) 40 mg capsule take 1 capsule by mouth once daily flash glucose sensor (FREESTYLE TAYLOR 14 DAY SENSOR) kit Use to check blood sugar 4 times daily. Please give 2 sensors per refill dicyclomine (BENTYL) 10 mg capsule Take 1 capsule by mouth before meals and at bedtime. for abdominal pain dulaglutide (TRULICITY) 4.5 mg/0.5 mL pen injector Inject 4.5 mg subcutaneously one time a week. Fenofibrate (LOFIBRA) 160 mg tablet Take 1 tablet by mouth once daily. rosuvastatin (CRESTOR) 10 mg tablet Take 1 tablet by mouth daily at bedtime. hydrOXYzine HCl (ATARAX) 25 mg tablet Take 1-2 tablets by mouth at bedtime as needed. Insulin [place], Disposable, (DROPLET PEN NEEDLE) 31 gauge x 3/16 use 1 PEN NEEDLE to inject MEDICATION subcutaneously four times a day fluticasone (FLONASE) 50 mcg/actuation nasal spray Use 1-2 Sprays in each nostril once daily as needed. PEG 400-propylene glycol (SYSTANE ULTRA) 0.4-0.3 % ophthalmic solution Use 1 Drop in both eyes fourtimes daily. Cholecalciferol, Vitamin D3, 125 mcg (5,000 unit) cap Take 1 capsule by mouth once daily. blood sugar diagnostic (BLOOD GLUCOSE TEST) test strip Test blood sugar(s) 4 times daily. Dx: OtherDM Code E11.40 Insulin: Yes blood sugar diagnostic (BLOOD GLUCOSE TEST) test strip Test blood sugar(s) 4 times daily. Dx: Type 2 DM - Controlled E11.9 Insulin: Yes OXYGEN, HOME THERAPY, Inhale as instructed as directed. Uses at 2 l/m via nasal cannula during the day and 4 l/m at night Blood-Glucose Meter monitoring kit Check sugars daily and as needed (Freestyle Lite is what she hashad) flash glucose scanning reader (FREESTYLE TAYLOR 14 DAY READER) Use to check blood sugar 4 times daily estradiol (ESTRACE) 0.01 % (0.1 mg/gram) vaginal cream Use 3 g vaginally two times a week. Lancets lancets Test blood sugar(s) 4 times daily. Dx: E11.9 Insulin: Yes (Patient taking differently: Test blood sugar(s) 4 times daily. Dx: E11.9 Insulin: Yes Uses as needed) Miscellaneous Medical Supply (BLOOD PRESSURE CUFF) 1 Each as needed. Blood pressure Monitor and Cuff, use as directed. Dx: I10 Hypertension No current facility-administered medications for this visit. Allergies: Metformin, Oxycodone, and Percocet [Oxycodone-Acetaminophen] ROS: General (negative for fatigue, malaise, weight loss/gain) HEENT (negative for headache, earache, recent vision changes, sinus pain, sore throat) Respiratory (no recent shortness of breath, hemoptysis) CV (negative for chest tightness, palpitations) Musculoskeletal (see HPI) Psych (no depression, anxiety) REFERRING PHYSICIAN: Consultation requested by Cole Bower for an opinion regarding shoulder injury. My final recommendations will be communicated back to the requesting physician by way of shared Medical record or letter to requesting physician via US mail. Cole Bower [address] [address] Sarina Adams MD [address] [address] Klaus Hernandez MD documented in this encounterK[facility]09-23-2024 Telephone encounter Note * Telephone Encounter - Denise Alvarado APRN.QUALITY ASSURANCE PRACTICE MANAGER - 06/26/2024 8:12 AM EDT Check to see how often she is taking furosemide 40 mg. BUN is elevated, Creatinine trending downward. Needs to taking in 64 ounces of fluid daily to help kidney function normalize. Verify taking DM medications as ordered. Glucose trending upward. Schedule 3 mo follow up Sarina Adams MD or [place] for recheck of kidney function and DM. Labs at this visit, prior if possible. Latest Ref Rng 05/16/2024 06/06/2024 06/14/2024 WBC 3.70 - 11.00 k/uL 4.79 5.82 RBC 3.90 - 5.20 m/uL 3.74 (L) 4.67 Hemoglobin 11.5 - 15.5 g/dL 10.7 (L) 13.3 Hematocrit 36.0 - 46.0 % 34.5 (L) 42.0 MCV 80.0 - 100.0 fL 92.2 89.9 MCH 26.0 - 34.0 pg 28.6 28.5 MCHC 30.5 - 36.0 g/dL 31.0 31.7 RDW-CV 11.5 - 15.0 % 13.9 14.1 Platelet Count 150 - 400 k/uL 136 (L) 173 MPV 9.0 - 12.7 fL 11.6 10.8 Neut% % 70.6 Abs Neut (ANC) 1.45 - 7.50 k/uL 3.38 Lymph% % 17.5 Abs Lymph 1.00 - 4.00 k/uL 0.84 (L) [place]% % 6.1 Abs [place] <0.87 k/uL 0.29 Eosin% % 5.0 Abs Eosin <0.46 k/uL 0.24 Baso% % 0.4 Abs Baso <0.11 k/uL <0.03 Immature Gran % % 0.4 IMMATURE GRANS (ABS) <0.10 k/uL <0.03 NRBC /100 WBC 0.0 Absolute nRBC <0.01 k/uL <0.01 <0.01 DTYPE Auto Protein, Total 6.3 - 8.0 g/dL 6.4 7.6 Albumin 3.9 - 4.9 g/dL 3.6 (L) 4.3 Calcium 8.5 - 10.2 mg/dL 9.6 10.3 (H) 9.9 Bilirubin, Total 0.2 - 1.3 mg/dL 0.2 0.3 Alkaline Phosphatase 34 - 123 U/L 73 94 AST 13 - 35 U/L 27 20 ALT 7 - 38 U/L 26 18 Glucose 74 - 99 mg/dL 206 (H) 216 (H) 243 (H) BUN 7 - 21 mg/dL 21 33 (H) 40 (H) Creatinine 0.58 - 0.96 mg/dL 0.97 (H) 1.16 (H) 1.06 (H) Sodium 136 - 144 mmol/L 142 142 139 Potassium 3.7 - 5.1 mmol/L 4.0 4.0 4.5 Chloride 98 - 107 mmol/L 104 99 98 CO2 22 - 30 mmol/L 29 29 30 Anion Gap 8 - 15 mmol/L 9 14 11 eGFR >=60 mL/min/1.73m 68 55 (L) 61 Total Cholesterol, Nonfasting <200 mg/dL 148 Triglycerides, Nonfasting <150 mg/dL 257 (H) HDL Cholesterol, Nonfasting >39 mg/dL 43 LDL Cholesterol, Nonfasting <100 mg/dL 54 Non HDL Cholesterol, Nonfasting <130 mg/dL 105 VLDL Cholesterol, Nonfasting <30 mg/dL 51 (H) Total Chol/HDL Ratio, Nonfasting <5.10 mg/dL 3.44 LDL/HDL Ratio, Nonfasting <2.54 mg/dL 1.26 Hemoglobin A1C 4.3 - 5.6 % 9.7 (H) 8.7 (H) Estimated Average Glucose mg/dL 232 203 TSH 0.270 - 4.200 mIU/L 7.640 (H) 27.100 (H) Vitamin D 25 Hydroxy 31.0 - 80.0 ng/mL 38.8 38.0 Free T3 2.3 - 4.1 pg/mL 2.5 2.4 Free T4 0.9 - 1.7 ng/dL 1.4 1.0 Legend: (L) Low (H) High [facility]09-17-2024 Telephone encounter Note* Telephone Encounter - Gavi Tolliver MA - 06/20/2024 10:09 AM EDT The patient has been scheduled. [facility]09-17-2024 Miscellaneous Notes* Telephone Encounter - Gavi Tolliver MA - 06/20/2024 10:09 AM EDT The patient has been scheduled. * Telephone Encounter - Gavi Tolliver MA - 06/20/2024 8:32 AM EDT Attempted to reach the patient. I left another message for the patient to contact the office. * Telephone Encounter - Yulissa Dawson RN - 06/19/2024 2:31 PM EDT Tried pt again to schedule sooner appt- Left another VM to return my call. * Telephone Encounter - Yulissa Dawson RN - 06/19/2024 10:53 AM EDT Left VM to try to get pt scheduled sooner. If I don't hear back from her I will call again. I asked if she could come to [place] for a visit. * Telephone Encounter - Cole Bower APRN.ADVISORY SOFTWARE ENGINEER - 06/19/2024 7:13 AM EDT Recent repeat xray with the impression of: Impacted LEFT proximal humerus fracture. Currently patient is in a sling, no casting. Original xray was done in [facility] ER. She is also doing PT/OT at home. Do you want that held until seen with ortho? She is not scheduled with ortho until 08/14, does she needin sooner or can she be seen sooner? Thanks, Cole Bower APRN.ADVISORY SOFTWARE ENGINEER documented in this encounterK[facility]09-17-2024 Telephone encounter Note * Telephone Encounter - Gavi Tolliver MA - 06/20/2024 8:32 AM EDT Attempted to reach the patient. I left another message for the patient to contact the office. [facility]09-16-2024 Telephone encounter Note* Telephone Encounter - Yulissa Dawson RN - 06/19/2024 2:31 PM EDT Tried pt again to schedule sooner appt- Left another VM to return my call. [facility]09-16-2024 Telephone encounter Note* Telephone Encounter - Yulissa Dawson RN - 06/19/2024 10:53 AM EDT Left VM to try to get pt scheduled sooner. If I don't hear back from her I will call again. I asked if she could come to [place] for a visit. [facility]09-16-2024 Telephone encounter Note* Telephone Encounter - Cole Bower APRN.KENDAL - 06/19/2024 7:13 AM EDT Recent repeat xray with the impression of: Impacted LEFT proximal humerus fracture. Currently patient is in a sling, no casting. Original xray was done in [facility] ER. She is also doing PT/OT at home. Do you want that held until seen with ortho? She is not scheduled with ortho until 08/14, does she needin sooner or can she be seen sooner? Thanks, Cole Bower APRN.KENDAL [facility]09-13-2024 Telephone encounter Note* Telephone Encounter - Maylin Delaney LPN - 06/16/2024 4:23 PM EDT Fax rec'd from [employer]. Approval for hydrocodone/acetaminophen from 06/16/24 to 09/13/24. [facility]09-13-2024 Miscellaneous Notes* Telephone Encounter - Maylin Delaney LPN - 06/16/2024 4:23 PM EDT Fax rec'd from [employer]. Approval for hydrocodone/acetaminophen from 06/16/24 to 09/13/24. * Telephone Encounter - Maylin Delaney LPN - 06/16/2024 2:47 PM EDT Called [facility]. They reviewed PA faxed 06/14/24 and responded 06/15/24. The service center representative will callthe pharmacy and walk them through the coverage steps. She says she will call back here with an up date too. You may transfer the [facility] service center representative to me. * Telephone Encounter - Tracey De Leon RN - 06/16/2024 2:21 PM EDT Prior Authorization Documentation Patient calls to request: Prior authorization requested for the following medication: Medication: hydrocodone-acetaminophen Provider: [employer] Name: [employer] Phone number: Patient ID [facility]: [id number] [facility] RXBIN: [id number] RXPCN: [id number] Pharmacy Name: [facility] Telephone number: [phone] Tracey De Leon RN documented in this encounterKettering [facility]09-13-2024 Telephone encounter Note * Telephone Encounter - Maylin Delaney LPN - 06/16/2024 2:47 PM EDT Called [facility]. They reviewed PA faxed 06/14/24 and responded 06/15/24. The service center representative will callthe pharmacy and walk them through the coverage steps. She says she will call back here with an up date too. You may transfer the [facility] service center representative to me. [facility]09-13-2024 Telephone encounter Note* Telephone Encounter - Tracey De Leon RN - 06/16/2024 2:21 PM EDT Prior Authorization Documentation Patient calls to request: Prior authorization requested for the following medication: Medication: hydrocodone-acetaminophen Provider: [employer] Name: [employer] Phone number: Patient ID number: [id number] [facility] RX Benefit RXBIN: [id number] RXPCN: [id number] Pharmacy Name: [facility] Telephone number: [phone] Tracey De Leon, RN [facility]09-12-2024 Telephone encounter Note* Telephone Encounter - Maylin Delaney LPN - 06/15/2024 11:01 AM EDT Fax rec'd from [facility] saying no PA is needed. This fax was forwarded on to the pharmacy. [facility]09-12-2024 Miscellaneous Notes* Telephone Encounter - Maylin Delaney LPN - 06/15/2024 11:01 AM EDT Fax rec'd from [facility] saying no PA is needed. This fax was forwarded on to the pharmacy. * Telephone Encounter - Maylin Delaney LPN - 06/14/2024 2:23 PM EDT Tried to complete PA for hydrocodone acetaminophen 5-325. Unable to complete electronically. Tried via covermymeds and this is the PA response. Information regarding your request Electronic prior authorization not required for [facility]. If requesting a quantity above allowable limits, please submit via other method. Will complete paper PA for opioid form. Form completed and faxed to [facility]. documented in this encounterK[facility] History of Present illness Narrative* Randi Horn, RT(R) - 06/14/2024 3:00 PM EDT Radiology Service Progress Note PATIENT NAME: Samantha Romero DATE OF SERVICE: June 14, 2024 TIME: 2:19 PM PATIENT IDENTITY VERIFICATION COMPLETED USING TWO (2) IDENTIFIERS: Name and Date of confirmedby patient verbally. FALL SCREENING: Has the patient had 2 falls in the last year or 1 fall with injury or currently using an Ambulatory Assistive Device (Walker, Cane, Wheelchair, Crutches, etc.)? Yes, Patient High Riskfor Falls What interventions were put in place to prevent falls during this visit? Offered Assistance with Transfers/Clothing and did sitting in wheelchair PATIENT GENDER DATA: Female. status: : No status: NO. PATIENT RELEVANT IMPLANT DATA REVIEWED: Not Applicable PATIENT PRESENTS WITH AN IMPLANTABLE OR ATTACHED VENDING MACHINE FILLER: Yes [facility] RADIOLOGY DEPARTMENT: General X-ray: Exam(s) Completed: Upper Extremity X- Ray(s): Shoulder, AP / TRUE AP left PERIPHERAL IV DATA: Not applicable SIGNED BY: RT Manny(R) June 14, 2024 2:19 PM documented in this encounterK[facility]24 Telephone encounter Note * Telephone Encounter - Maylin Delaney LPN - 06/14/2024 2:23 PM EDT Tried to complete PA for hydrocodone acetaminophen 5-325. Unable to complete electronically. Tried via covermymeds and this is the PA response. Information regarding your request Electronic prior authorization not required for [facility]. If requesting a quantity above allowable limits, please submit via other method. Will complete paper PA for opioid form. [facility]09-11-2024 History of Present illness Narrative* Cole Bower APRN.ADVISORY SOFTWARE ENGINEER - 06/14/2024 1:36 PM EDT SUBJECTIVE Samantha Romero is a 58 year old female here today for a check up on her medical problems. Chief Complaint Patient presents with: Recheck: of lab results and left shoulder injury from a fall Patient states that the HCTZ is currently on hold due to low blood pressure causing the fall HPI Samantha Romero is a 58 year old female. She is an established patient of Sarina Adams MD. Here today for follow up. Notes no issues with swelling. NO more short of breath than normal. HCTZ has beenon hold, also has Lasix PRN for swelling. Has been doing home PT/OT and having nursing. Reynolds for left shoulder pain and chronic back pain helping but needs prior auth for 4 times daily. Shoulder seems a little better. Ortho August 14. Still with a lot of pain and very limited range of motion, ERxray with questionable rotator cuff injury. Labs from prior visit showed TSH abnormal, Synthroid increased. Seeing pharmD for Dm management. Has BMP ordered for recent JOSIE. Her medications were reviewed today and her list is now up to date. Medications Current Outpatient Medications Medication Sig keTORolac (ACULAR) 0.5 % ophthalmic solution EVERY 6 HOURS prednisoLONE acetate (PRED FORTE) 1 % ophthalmic suspension EVERY 6 HOURS promethazine (PHENERGAN) 25 mg tablet Take 25 mg by mouth every 6 hours as needed. empagliflozin (JARDIANCE) 25 mg tablet Take 1 tablet by mouth daily with breakfast. ON HOLD FOLLOWING HOSPITAL DISCHARGE 04/2024 lisinopril 2.5 mg tablet Take 1 tablet by mouth once daily. ON HOLD FOLLOWING HOSPITAL DISCHARGE 04/2024 gabapentin (NEURONTIN) 600 mg tablet Take 1 tablet by mouth three times a day for 90 days. HYDROcodone-acetaminophen (NORCO) 5-325 mg per tablet Take 1 tablet by mouth four times a day as needed for pain for up to 30 days. Short term increase to 4 times daily as needed due to fall/rotator cuff injury insulin aspart U-100 (NOVOLOG) 100 unit/mL (3 mL) INJECT 20 UNITS SUBCUTANEOUSLY WITH MEALS THREE TIMES A DAY PLUS SLIDING SCALE #2 (add 2 units for every 50 points above 150 mg/dl) BASED ON PRE-MEAL BLOOD SUGAR (MAX: 96 UNITS PER DAY) insulin degludec (TRESIBA FLEXTOUCH U-200) 200 unit/mL (3 mL) injection Inject 80 Units subcutaneously daily at bedtime. levothyroxine (SYNTHROID) 200 mcg tablet Take 1.5 tablets by mouth daily before breakfast. meloxicam (MOBIC) 15 mg tablet Take 1 tablet by mouth once daily as needed for pain. With food. omeprazole (PRILOSEC) 40 mg capsule take 1 capsule by mouth once daily dicyclomine (BENTYL) 10 mg capsule Take 1 capsule by mouth before meals and at bedtime. for abdominal pain dulaglutide (TRULICITY) 4.5 mg/0.5 mL pen injector Inject 4.5 mg subcutaneously one time a week. Fenofibrate (LOFIBRA) 160 mg tablet Take 1 tablet by mouth once daily. rosuvastatin (CRESTOR) 10 mg tablet Take 1 tablet by mouth daily at bedtime. hydrOXYzine HCl (ATARAX) 25 mg tablet Take 1-2 tablets by mouth at bedtime as needed. fluticasone (FLONASE) 50 mcg/actuation nasal spray Use 1-2 Sprays in each nostril once daily as needed. PEG 400-propylene glycol (SYSTANE ULTRA) 0.4-0.3 % ophthalmic solution Use 1 Drop in both eyes fourtimes daily. Cholecalciferol, Vitamin D3, 125 mcg (5,000 unit) cap Take 1 capsule by mouth once daily. estradiol (ESTRACE) 0.01 % (0.1 mg/gram) vaginal cream Use 3 g vaginally two times a week. furosemide (LASIX) 40 mg tablet Take 1 tablet by mouth once daily as needed (for swelling). blood sugar diagnostic (FREESTYLE LITE STRIPS) test strip Test blood sugar(s) 4 times daily. Dx: Other DM Code E11.40 Insulin: Yes flash glucose sensor (FREESTYLE TAYLOR 14 DAY SENSOR) kit Use to check blood sugar 4 times daily. Please give 2 sensors per refill Insulin [place], Disposable, (DROPLET PEN NEEDLE) 31 gauge x 3/16 use 1 PEN NEEDLE to inject MEDICATION subcutaneously four times a day blood sugar diagnostic (BLOOD GLUCOSE TEST) test strip Test blood sugar(s) 4 times daily. Dx: OtherDM Code E11.40 Insulin: Yes blood sugar diagnostic (BLOOD GLUCOSE TEST) test strip Test blood sugar(s) 4 times daily. Dx: Type 2 DM - Controlled E11.9 Insulin: Yes OXYGEN, HOME THERAPY, Inhale as instructed as directed. Uses at 2 l/m via nasal cannula during the day and 4 l/m at night Blood-Glucose Meter monitoring kit Check sugars daily and as needed (Freestyle Lite is what she hashad) Lancets lancets Test blood sugar(s) 4 times daily. Dx: E11.9 Insulin: Yes (Patient taking differently: Test blood sugar(s) 4 times daily. Dx: E11.9 Insulin: Yes Uses as needed) Miscellaneous Medical Supply (BLOOD PRESSURE CUFF) 1 Each as needed. Blood pressure Monitor and Cuff, use as directed. Dx: I10 Hypertension flash glucose scanning reader (RedbeaconSTYLE TAYLOR 14 DAY READER) Use to check blood sugar 4 times daily No current facility-administered medications for this visit. ALLERGIES Allergen Reactions Metformin Diarrhea Diarrhea every time takes, even with ER dose Oxycodone GI Upset Percocet [Oxycodone* GI Upset and off balance ACTIVE PROBLEM LIST Hypothyroid - 04/19/2014 (A priority) Diabetic Eye Exam (Hcc) - 04/05/2014 (A priority) Hyperlipidemia - 04/05/2014 (A priority) Kidney Stone On Left Side - 04/12/2014 (C priority) Comment: Dr. Ash is her doctor. Pericardial Effusion - 01/25/2023 Obesity, Class III, BMI >= 40 - 12/18/2022 Gastroesophageal Reflux Disease - 10/19/2022 Chronic Midline Low Back Pain - 10/19/2022 Esophageal Dysphagia - 10/19/2022 Gastroesophageal Reflux Disease With Esophagitis Without Hemorrhage - 10/19/2022 Comment: Intermittent reflux Myasthenia Gravis ([facility]) - 07/30/2022 Type 2 Diabetes Mellitus With Diabetic Neuropathy, With Long-Term Current Use of Insulin ([facility]) - 07/30/2022 Bilateral Leg Edema - 07/30/2022 Comment: worse on left Dysuria - 07/30/2022 Comment: Follow up with gynecology 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 Chronic Hypoxemic Respiratory Failure ([facility]) - 12/09/2021 Pneumonia Due to Covid-19 Virus - 08/05/2021 Status Post Cataract Extraction and Insertion of Intraocular Lens of Right Eye - 06/03/2021 Combined Forms of Age-Related Cataract of Left Eye - 05/09/2021 Type 2 Diabetes Mellitus With Moderate Nonproliferative Diabetic Retinopathy With Macular Edema ([facility]) - 05/09/2021 Type 2 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 Macular Edema, Without Long-Term Current Use of Insulin ([facility]) - 05/09/2021 Uncontrolled Type 2 Diabetes With Neuropathy - 08/20/2015 Abnormally Small Mouth - 06/24/2015 Essential Hypertension - 06/24/2015 Thrombocytopenia (Hcc) - 06/24/2015 Noncompliance - 10/17/2014 OA (osteoarthritis) of hip, bilateral - 04/04/2014 Social History Tobacco Use Smoking status: Former Current packs/day: 0.00 Average packs/day: 1 pack/day for 30.0 years (30.0 ttl pk-yrs) Types: Cigarettes Start date: 11/04/1983 Quit date: 11/04/2013 Years since quittin.6 Smokeless tobacco: Never Vaping Use Vaping status: Never Used Substance Use Topics Alcohol use: Not Currently Comment: wine cool every once in a while Drug use: Not Currently Types: Marijuana Review of Systems Respiratory: Negative. Cardiovascular: Negative. Musculoskeletal: Positive for arthralgias. OBJECTIVE BP 100/60 Pulse 79 Wt 223 lb 12.3 oz (101.5kg) SpO2 98[on 2 l/m of O2]% LMP 04/27/2016 Physical Exam Vitals and nursing note reviewed. Constitutional: General: She is awake. She is not in acute distress. Appearance: Normal appearance. She is well-developed and well-groomed. She is not ill-appearing, toxic-appearing or diaphoretic. HENT: Head: Normocephalic. Right Ear: External ear normal. Left Ear: External ear normal. Nose: Nose normal. Eyes: General: Vision grossly intact. Conjunctiva/sclera: Conjunctivae normal. Pupils: Pupils are equal, round, and reactive to light. Neck: Vascular: No JVD. Trachea: Trachea normal. Cardiovascular: Rate and Rhythm: Normal rate and regular rhythm. Pulses: Normal pulses. Heart sounds: Normal heart sounds. No murmur heard. Pulmonary: Effort: Pulmonary effort is normal. No accessory muscle usage, prolonged expiration or respiratory distress. Breath sounds: Normal breath sounds. Musculoskeletal: Left shoulder: Tenderness present. No swelling, deformity, effusion, laceration or crepitus. Decreased range of motion. Decreased strength. Normal pulse. Cervical back: Neck supple. Comments: Left shoulder with very limited range of motion, not able to extend above the head Skin: General: Skin is warm and dry. Capillary Refill: Capillary refill takes less than 2 seconds. Neurological: General: No focal deficit present. Mental Status: She is alert and oriented to person, place, and time. Mental status is at baseline. Psychiatric: Attention and Perception: Attention and perception normal. Mood and Affect: Mood and affect normal. Speech: Speech normal. Behavior: Behavior normal. Behavior is cooperative. Thought Content: Thought content normal. Cognition and Memory: Cognition and memory normal. Judgment: Judgment normal. ASSESSMENT/PLAN: 1. Injury of left rotator cuff, subsequent encounter - ICD9: V58.89, 959.2, ICD10: S46.002D (primary diagnosis) Update xray, consider MRI if xray still concerning for rotator cuff injury. She does have limited range of motion and decreased strength. Reynolds 4 times daily as needed still okay. Try and get ortho appointment sooner. - XR SHOULDER LIMITED 2V AP/TRUE AP LEFT 2. Chronic midline low back pain, unspecified whether sciatica present - ICD9: 724.2, 338.29, ICD10: M54.50, G89.29 Reynolds PRN. 3. Chronic SI joint pain - ICD9: 724.6, 338.29, ICD10: M53.3, G89.29 See above. 4. Debility - ICD9: 799.3, ICD10: R53.81 Okay for commode chair and grab bars. 5. JOSIE (acute kidney injury) (HCC) - ICD9: 584.9, ICD10: N17.9 Repeat BMP today. 6. Type 2 diabetes mellitus with diabetic neuropathy, with long-term current use of insulin (HCC) -ICD9: 250.60, 357.2, V58.67, ICD10: E11.40, Z79.4 - Uncontrolled - Continue current medications - Working with pharmD, neuropathy controlled. 7. Acquired hypothyroidism - ICD9: 244.9, ICD10: E03.9 - Instructed patient on importance of taking on an empty stomach either first thing in the morning or at bedtime. 8. Essential hypertension - ICD9: 401.9, ICD10: I10 - Controlled, d/c HCTZ at this time since also has Lasix PRN - Continue current medications - Recommend home blood pressure monitoring, to bring results to next visit - Encouraged sodium restriction, DASH or Mediterranean diet - Recommend regular aerobic exercise Portions of this note have been entered by ancillary staff. I have reviewed and when necessary edited, so that they are an adequate record of my encounter with this patient Please note that parts of this document were created using voice recognition software and therefore may contain grammatical errors. Patient verbalizes understanding of instructions from today's visit and in agreement with treatmentplan. Questions answered. Agrees to call the office if questions, concerns of issues with acute symptoms not improving or if they worsen. See diagnoses and orders for additional plan(s). Allergies and medications were reviewed, list was updated, and refills given if needed. Past medical, surgical, social, and family history reviewed and updated as appropriate. Encouraged proper diet & exercise as well as compliance with taking medications. Age- appropriate health preventative measures were discussed. Return in about 8 weeks (around 08/09/2024) for Follow up on chronic conditions and medications.. Cole Bower APRN-KENDAL documented in this encounterK[facility] Telephone encounter Note * Telephone Encounter - Cole Bower APRN.CNP - 06/13/2024 3:07 PM EDT Noted, agree [facility]09-10-2024 Miscellaneous Notes* Telephone Encounter - Cole Bower APRN.CNP - 06/13/2024 3:07 PM EDT Noted, agree * Telephone Encounter - Nida Hamilton LPN - 06/13/2024 2:51 PM EDT Kellen from [facility] calling did patient re-eval today patient needs more time with her arm and OT plan of care will be 2 visits weekly for 3 weeks. No need for return call. documented in this encounterK[facility]09-[facility]24 Telephone encounter Note * Telephone Encounter - Nida Hamilton LPN - 06/13/2024 2:51 PM EDT Kellen from [facility] calling did patient re-eval today patient needs more time with her arm and OT plan of care will be 2 visits weekly for 3 weeks. No need for return call. [facility]09-10-2024 Telephone encounter Note* Telephone Encounter - Tracey De Leon RN - 06/13/2024 12:38 PM EDT Call placed to [facility] and notified. Tracey De Leon RN [facility]09-10-2024 Miscellaneous Notes* Telephone Encounter - Tracey De Leon RN - 06/13/2024 12:38 PM EDT Call placed to [facility] and notified. Tracey De Leon RN * Telephone Encounter - Cole Bower APRN.CNP - 06/13/2024 12:29 PM EDT Please return call and let them know she is coming in tomorrow, I will need to see her first to determine if this is still needed or should be discontinued. We will clarify the med with visit tomorrow. * Telephone Encounter - Tracey De Leon RN - 06/13/2024 12:07 PM EDT Chiara nurse with [facility] calls to clarify the hydrochlorothiazide order. Chiara calls to ask if they are to be continuing hydrochlorothiazide and if so which dosage? Looks like patient should be taking hydrochlorothiazide 12.5 mg or hold based on current order. Please review and advise. Cole could you look at this one. It looks like you ordered HCTZ 25 mg 05/16 and then Denise might have decreased to 12.5 mg on 06/08 but its marked on hold from 04/2024? Please clarify. Chiara's call back number is [phone]. Tracey De Leon RN documented in this encounterK[facility]09-[facility]-2024 Telephone encounter Note * Telephone Encounter - Cole Bower APRN.CNP - 06/13/2024 12:29 PM EDT Please return call and let them know she is coming in tomorrow, I will need to see her first to determine if this is still needed or should be discontinued. We will clarify the med with visit tomorrow. [facility]09-10-2024 Telephone encounter Note* Telephone Encounter - Tracey De Leon RN - 06/13/2024 12:07 PM EDT Chiara nurse with [facility] calls to clarify the hydrochlorothiazide order. Chiara calls to ask if they are to be continuing hydrochlorothiazide and if so which dosage? Looks like patient should be taking hydrochlorothiazide 12.5 mg or hold based on current order. Please review and advise. Cole could you look at this one. It looks like you ordered HCTZ 25 mg 05/16 and then Denise might have decreased to 12.5 mg on 06/08 but its marked on hold from 04/2024? Please clarify. Chiara's call back number is [phone]. Tracey De Leon RN [facility]09-10-2024 Telephone encounter Note* Telephone Encounter - Rosa Elena Deluca LPN - 06/13/2024 8:20 AM EDT Scripts faxed to [facility]. [facility]09-10-2024 Miscellaneous Notes* Telephone Encounter - Rosa Elena Deluca LPN - 06/13/2024 8:20 AM EDT Scripts faxed to [facility]. * Telephone Encounter - Alicja Robin RN - 06/12/2024 4:53 PM EDT Pt called and is notified of providers message. Pt voices understanding. Pt would like order sent to [facility] by [facility]. Alicja Robin RN * Telephone Encounter - Cole Bower APRN.KENDAL - 06/12/2024 4:43 PM EDT I am definitely okay with starting the process prior to seeing her. I wrote the scripts. See if shewants this sent to [facility]? * Telephone Encounter - Alicja Robin RN - 06/12/2024 3:57 PM EDT Pt called in and reports Franklyn told her that provider needs to send in Rx for bars for bathtuband a bed side commode for her. Pt reports she was in [facility] for a fall and tore her rotator cuff on 06/02/24. She had hospital f/u appt with Denise Alvarado CULTURIST on 06/08/24 and will be seeing Cole Bower NP on 06/14/24 for a f/u.Please let Pt know if you can call prescription in for hospital f/u or if she had to wait for appointment with Cole Bower NP. The patient has been identified by name and date of : Yes Caregiver verified no other encounters exist for this prescription request: Yes Caregiver confirmed with patient/requestor that no other refills are due, in the near future, with this provider at this time: Yes The last office visit in the department: 06/08/2024 Does the patient have a future office visit with this provider/department: Yes 06/14/2024 Requested Prescriptions No prescriptions requested or ordered in this encounter Alicja Robin RN June 12, 2024 4:13 PM documented in this encounterK[facility]09[facility] Telephone encounter Note * Telephone Encounter - Alicja Robin RN - 06/12/2024 4:53 PM EDT Pt called and is notified of providers message. Pt voices understanding. Pt would like order sent to [facility]. Alicja Robin RN [facility]09-09-2024 Telephone encounter Note* Telephone Encounter - Cole Bower APRN.KENDAL - 06/12/2024 4:43 PM EDT I am definitely okay with starting the process prior to seeing her. I wrote the scripts. See if [facility]09-09-2024 Telephone encounter Note* Telephone Encounter - Mayte Vinson - 06/12/2024 4:10 PM EDT Pharmacy told patient insurance will not cover this prescription-that they need authorization to gofrom 3 to 4. Patient does not understand issue as Rx shows new directions. Please advise. [phone] [facility]09-09-2024 Miscellaneous Notes* Telephone Encounter - Mayte Vinson - 06/12/2024 4:10 PM EDT Pharmacy told patient insurance will not cover this prescription-that they need authorization to gofrom 3 to 4. Patient does not understand issue as Rx shows new directions. Please advise. [phone] * Telephone Encounter - Alicja Robin RN - 06/12/2024 3:57 PM EDT Let Pt know that medication been called in on 06/07/24. * Telephone Encounter - Rosa Elena Deluca LPN - 06/12/2024 11:59 AM EDT This was just sent to [facility] on 06/07/24. Attempted to notify patient with no answer and unable to leave a message due to mailbox is full. * Telephone Encounter - Sophie Wolfe - 06/12/2024 11:40 AM EDT Prescription Refill Information The patient has been identified by name and date of : Yes Caregiver verified no other encounters exist for this prescription request: Yes Caregiver confirmed with patient/requestor that no other refills are due, in the near future, with this provider at this time: Yes The last office visit in the department: 02-11-24 Does the patient have a future office visit with this provider/department: Yes Requested Prescriptions Pending Prescriptions Disp Refills HYDROcodone-acetaminophen (NORCO) 5-325 mg per tablet 120 tablet 0 Sig: Take 1 tablet by mouth four times a day as needed for pain for up to 30 days. Short term increase to 4 times daily as needed due to fall/rotator cuff injury Sophie Wolfe June 12, 2024 11:41 AM documented in this encounterK[facility]09-09-2024 Telephone encounter Note * Telephone Encounter - Alicja Robin RN - 06/12/2024 3:57 PM EDT Pt called in and reports Franklyn told her that provider needs to send in Rx for bars for bathtuband a bed side commode for her. Pt reports she was in [facility] for a fall and tore her rotator cuff on 06/02/24. She had hospital f/u appt with Denise Alvarado CULTURIST on 06/08/24 and will be seeing Cole Bower CULTURIST on 06/14/24 for a f/u.Please let Pt know if you can call prescription in for hospital f/u or if she had to wait for appointment with Cole Bower CULTURIST. The patient has been identified by name and date of : Yes Caregiver verified no other encounters exist for this prescription request: Yes Caregiver confirmed with patient/requestor that no other refills are due, in the near future, with this provider at this time: Yes The last office visit in the department: 06/08/2024 Does the patient have a future office visit with this provider/department: Yes 06/14/2024 Requested Prescriptions No prescriptions requested or ordered in this encounter Alicja Robin RN June 12, 2024 4:13 PM [facility]2024 Telephone encounter Note* Telephone Encounter - Alicja Robin RN - 06/12/2024 3:57 PM EDT Let Pt know that medication been called in on 06/07/24. [facility]09-09-2024 Telephone encounter Note* Telephone Encounter - Rosa Elena Deluca LPN - 06/12/2024 11:59 AM EDT This was just sent to [facility] on 06/07/24. Attempted to notify patient with no answer and unable to leave a message due to mailbox is full. [facility]09-09-2024 Telephone encounter Note* Telephone Encounter - Sophie Wolfe - 06/12/2024 11:40 AM EDT Prescription Refill Information The patient has been identified by name and date of : Yes Caregiver verified no other encounters exist for this prescription request: Yes Caregiver confirmed with patient/requestor that no other refills are due, in the near future, with this provider at this time: Yes The last office visit in the department: 02-11-24 Does the patient have a future office visit with this provider/department: Yes Requested Prescriptions Pending Prescriptions Disp Refills HYDROcodone-acetaminophen (NORCO) 5-325 mg per tablet 120 tablet 0 Sig: Take 1 tablet by mouth four times a day as needed for pain for up to 30 days. Short term increase to 4 times daily as needed due to fall/rotator cuff injury Sophie Wolfe June 12, 2024 11:41 AM [facility]2024 Telephone encounter Note* Telephone Encounter - Alicja Robin RN - 06/08/2024 4:41 PM EDT Ole RN with [facility] called and asked if Pt was at appointment today for medication management. I let him know she was. Let him know new medications. Faxed Medication list with problems to fax # [phone] and put it in to be delivered to [facility] tomorrow when they make the hand deliveries. [facility]2024 Miscellaneous Notes* Telephone Encounter - Alicja Robin RN - 06/08/2024 4:41 PM EDT Ole RN with [facility] called and asked if Pt was at appointment today for medication management. I let him know she was. Let him know new medications. Faxed Medication list with problems to fax # [phone] and put it in to be delivered to [facility] tomorrow when they make the hand deliveries. documented in this [facility] Instructions* Patient Instructions* Denise Alvarado APRN.ROLF - 06/08/2024 2:22 PM EDT The medications we have held for you at discharge from the hospital include: hydrochlorothiazide 12.5 mg, lisinopril 2.5 mg, furosemide 40 mg, and Jardiance 25 mg daily. Check with the home care nurse and verify if you are taking furosemide 40 mg daily as needed or if you ae taking HCTZ 12.5 mg daily. You have lost 26 pounds since we last seen you know so I am thinking you are taking 1 of these diuretics, either HCTZ or furosemide. Levothyroxine dose was increased from 200 mcg daily to 300 mcg daily recently. documented in [facility] History of Present illness Narrative* Denise Alvarado APRN.CNS - 06/08/2024 1:40 PM EDT SUBJECTIVE: Depression Screening Never done Anxiety Screening Never done Hepatitis B Vaccine(1 of 3 - 19+ 3-dose series) Never done Mammogram Screening due on 03/22/2015 Pneumococcal Vaccine(2 of 2 - PCV) due on 04/19/2015 Shingrix Vaccine(1 of 2) Never done Diabetic Foot Exam due on 04/25/2022 Influenza Vaccine(1) due on 06/04/2024 Cervical Cancer Screening due on 10/13/2024 JAZZ Samantha Romero is a 58 year old female. 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 Macular Edema, Without Long-Term Current Use of Insulin (Hcc) Status Post Cataract Extraction and Insertion of Intraocular Lens of Right Eye Pneumonia Due to Covid-19 Virus Post-Covid Chronic Dyspnea Chronic Hypoxemic Respiratory Failure (Hcc) Myasthenia Gravis (Hcc) Type 2 Diabetes Mellitus With Diabetic Neuropathy, With Long-Term Current Use of Insulin (Hcc) Bilateral Leg Edema Dysuria Gastroesophageal Reflux Disease Chronic Midline Low Back Pain Esophageal Dysphagia Gastroesophageal Reflux Disease With Esophagitis Without Hemorrhage Obesity, Class III, BMI >= 40 Pericardial Effusion Presents today regarding weakness and leg swelling. She was seen by Cole Bower CNP May 16, 2024. She reported a fall May 02, 2024. Reported she was walking into [place] got dizzy and fell. States she tore her rotator cuff. Reported being transferred to ER by ambulance. Reports has home health care with fpc and PT. Notes indicate new MRI of the shoulder was completed and x-ray was done in ER which showed elevation of the humeral head, rotator cuff injury cannot be excluded. Mild hypertrophy of the SCM articulation. She is followed by Dr. River, cardiology pulmonology. She reported concern regarding recurrent UTI. Notes chronic hypoxic respiratory failure on O2 via nasal cannula. Review of care everywhere shows admission May 02, 2024 for acute on chronic kidney failure, rotator cuff injury, contusion of left elbow, acute hypotension, debility, type 2 diabetes and history of hypothyroidism. Presents today with SO. She notes breathing is improved. Chronically on oxygen. Weight is decreased 26 pounds since last seen. Leg swelling is nearly resolved. 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 [facility] home care is coming out to her home. She is not sure what medication she is taking, states home health care nurse had set up a pillbox for her. She continues in a sling for her left shoulder. Is completing HEP. She is home bound and limited resources for rides to appointments. JOSIE noted in hospital. Unclear if she is taking furosemide or HCTZ currently. Will check with home care. Creatinine Date Value Ref Range Status 06/06/2024 1.16 (H) 0.58 - 0.96 mg/dL Final 05/16/2024 0.97 (H) 0.58 - 0.96 mg/dL Final 02/02/2024 1.13 (H) 0.58 - 0.96 mg/dL Final 10/11/2023 1.24 (H) 0.58 - 0.96 mg/dL Final DIABETES MELLITUS: She was seen by pharmacist on June 02, 2024. She reported some low readings and her dose of insulins was decreased, mealtime and long- acting. Remains off of Jardiance since discharge. Patient's last HgA1C was Hemoglobin A1C (%) Date Value 06/06/2024 8.7 05/16/2024 9.7 04/10/2021 8.3 10/25/2020 10.3 Hemoglobin A1C (POCT) (%) Date Value 10/21/2022 11.0 ) HTN: Chronically short of breath, at baseline currently. Without report of chest pain, edema, palpitations, presyncope or syncope currently. Last 3 Encounter BP Readings: Date: BP: 06/08/2024 102/66 05/16/2024 140/62 02/21/2024 99/52 Hypothyroidism. Her dose of levothyroxine was recently increased. TSH Date Value 06/06/2024 27.100 mIU/L 05/16/2024 7.640 mIU/L 04/10/2021 2.340 uU/mL 04/10/2020 1.210 uU/mL ) Review of Systems Constitutional: Positive for fatigue. Respiratory: Positive for shortness of breath. Cardiovascular: Positive for leg swelling (scant, improved). Objective BP 102/66 Pulse 66 Resp 16 Wt 100.6 kg (221 lb 12.5 oz) LMP 04/27/2016 SpO2 99% BMI 38.07 kg/m Physical Exam Vitals and nursing note reviewed. Constitutional: Appearance: Normal appearance. HENT: Head: Normocephalic and atraumatic. Eyes: Conjunctiva/sclera: Conjunctivae normal. Neck: Thyroid: No thyromegaly. Vascular: No JVD. Cardiovascular: Rate and Rhythm: Normal rate and regular rhythm. Heart sounds: No murmur heard. No friction rub. No gallop. Pulmonary: Effort: Pulmonary effort is normal. Breath sounds: Normal breath sounds. Musculoskeletal: Lumbar back: Tenderness and bony tenderness present. No spasms. Decreased range of motion. Right lower leg: Edema (scant) present. Left lower leg: Edema (scant) present. Skin: General: Skin is warm and dry. Neurological: Mental Status: She is alert. Mental status is at baseline. ALLERGIES Allergen Reactions Metformin Diarrhea Diarrhea every time takes, even with ER dose Oxycodone GI Upset Percocet [Oxycodone* GI Upset and off balance Medications keTORolac (ACULAR) 0.5 % ophthalmic solution EVERY 6 HOURS prednisoLONE acetate (PRED FORTE) 1 % ophthalmic suspension EVERY 6 HOURS HYDROcodone-acetaminophen (NORCO) 5-325 mg per tablet Take 1 tablet by mouth four times a day as needed for pain for up to 30 days. Short term increase to 4 times daily as needed due to fall/rotator cuff injury insulin aspart U-100 (NOVOLOG) 100 unit/mL (3 mL) INJECT 20 UNITS SUBCUTANEOUSLY WITH MEALS THREE TIMES A DAY PLUS SLIDING SCALE #2 (add 2 units for every 50 points above 150 mg/dl) BASED ON PRE-MEAL BLOOD SUGAR (MAX: 96 UNITS PER DAY) insulin degludec (TRESIBA FLEXTOUCH U-200) 200 unit/mL (3 mL) injection Inject 80 Units subcutaneously daily at bedtime. levothyroxine (SYNTHROID) 200 mcg tablet Take 1.5 tablets by mouth daily before breakfast. blood sugar diagnostic (FREESTYLE LITE STRIPS) test strip Test blood sugar(s) 4 times daily. Dx: Other DM Code E11.40 Insulin: Yes hydroCHLOROthiazide 25 mg tablet Take 1 tablet by mouth once daily. meloxicam (MOBIC) 15 mg tablet Take 1 tablet by mouth once daily as needed for pain. With food. omeprazole (PRILOSEC) 40 mg capsule take 1 capsule by mouth once daily flash glucose sensor (FREESTYLE TAYLOR 14 DAY SENSOR) kit Use to check blood sugar 4 times daily. Please give 2 sensors per refill dicyclomine (BENTYL) 10 mg capsule Take 1 capsule by mouth before meals and at bedtime. for abdominal pain dulaglutide (TRULICITY) 4.5 mg/0.5 mL pen injector Inject 4.5 mg subcutaneously one time a week. Fenofibrate (LOFIBRA) 160 mg tablet Take 1 tablet by mouth once daily. rosuvastatin (CRESTOR) 10 mg tablet Take 1 tablet by mouth daily at bedtime. gabapentin (NEURONTIN) 600 mg tablet Take 1 tablet by mouth three times a day for 90 days. hydrOXYzine HCl (ATARAX) 25 mg tablet Take 1-2 tablets by mouth at bedtime as needed. empagliflozin (JARDIANCE) 25 mg tablet Take 1 tablet by mouth daily with breakfast. Insulin [place], Disposable, (DROPLET PEN NEEDLE) 31 gauge x 3/16 use 1 PEN NEEDLE to inject MEDICATION subcutaneously four times a day PEG 400-propylene glycol (SYSTANE ULTRA) 0.4-0.3 % ophthalmic solution Use 1 Drop in both eyes fourtimes daily. (Patient taking differently: Use 1 Drop in both eyes four times daily. Uses three times daily) blood sugar diagnostic (BLOOD GLUCOSE TEST) test strip Test blood sugar(s) 4 times daily. Dx: OtherDM Code E11.40 Insulin: Yes blood sugar diagnostic (BLOOD GLUCOSE TEST) test strip Test blood sugar(s) 4 times daily. Dx: Type 2 DM - Controlled E11.9 Insulin: Yes OXYGEN, HOME THERAPY, Inhale as instructed as directed. Uses at 2 l/m via nasal cannula during the day and 4 l/m at night hydrocortisone 2.5 % cream Apply 1 application to affected area twice daily. Location: hands and chest (Patient taking differently: Apply 1 application to affected area two times a day. Location: hands and chest Uses as needed) Blood-Glucose Meter monitoring kit Check sugars daily and as needed (Freestyle Lite is what she hashad) Lancets lancets Test blood sugar(s) 4 times daily. Dx: E11.9 Insulin: Yes (Patient taking differently: Test blood sugar(s) 4 times daily. Dx: E11.9 Insulin: Yes Uses as needed) clotrimazole-betamethasone (LOTRISONE) cream Apply 1 application to affected area twice daily. X 2 weeks. (Patient taking differently: Apply 1 application to affected area two times a day. X 2 weeks. Uses as needed) Miscellaneous Medical Supply (BLOOD PRESSURE CUFF) 1 Each as needed. Blood pressure Monitor and Cuff, use as directed. Dx: I10 Hypertension flash glucose scanning reader (FREESTYLE TAYLOR 14 DAY READER) Use to check blood sugar 4 times daily estradiol (ESTRACE) 0.01 % (0.1 mg/gram) vaginal cream Use 3 g vaginally two times a week. lisinopril (ZESTRIL) 10 mg tablet Take 10 mg by mouth once daily. fluticasone (FLONASE) 50 mcg/actuation nasal spray Use 1-2 Sprays in each nostril once daily as needed. peg 400-propylene glycol (SYSTANE GEL) 0.4-0.3 % drpg Use 1 Drop in both eyes daily at bedtime. (Patient not taking: Reported on 06/08/2024) Cholecalciferol, Vitamin D3, 125 mcg (5,000 unit) cap Take 1 capsule by mouth once daily. PAST MEDICAL HISTORY No date: Chronic hypoxemic respiratory failure (HCC) 07/06/2021: COVID-19 No date: HTN (hypertension) 04/05/2014: Hyperlipidemia 04/19/2014: Hypothyroid 04/12/2014: Kidney stone on left side No date: Myasthenia gravis (HCC) 04/04/2014: OA (osteoarthritis) of hip, bilateral 04/05/2014: Type II or unspecified type diabetes mellitus without mention of complication, uncontrolled Social History Tobacco Use Smoking status: Former Current packs/day: 0.00 Average packs/day: 1 pack/day for 30.0 years (30.0 ttl pk-yrs) Types: Cigarettes Start date: 11/04/1983 Quit date: 11/04/2013 Years since quittin.6 Smokeless tobacco: Never Vaping Use Vaping status: Never Used Substance Use Topics Alcohol use: Not Currently Comment: wine cool every once in a while Drug use: Not Currently Types: Marijuana Latest Ref Rng 05/16/2024 06/06/2024 Color Yellow Yellow Clarity Clear Cloudy ! Glucose, Urine Negative 3+ ! Bilirubin, Urine Negative Negative Ketones, Urine Negative Negative Specific [place], Ur 1.005 - 1.030 1.028 Hemoglobin/Blood,Ur Negative 1+ ! pH, Urine <8.5 6.5 Protein, Urine Negative 4+ ! Urobilinogen 0.2-1.0 EU/dL 1.0 EU/dL Nitrites Negative Negative Leukest Negative Negative WBC, Urine 0-5 /HPF >20 /HPF ! RBC, Urine 0-2 /HPF 3-5 /HPF ! Bacteria uL Negative uL 1,169.8 (H) Epithelial Cells /HPF Moderate Hyaline Cast 0 /LPF 4-10 /LPF ! Protein, Total 6.3 - 8.0 g/dL 6.4 7.6 Albumin 3.9 - 4.9 g/dL 3.6 (L) 4.3 Calcium 8.5 - 10.2 mg/dL 9.6 10.3 (H) Bilirubin, Total 0.2 - 1.3 mg/dL 0.2 0.3 Alkaline Phosphatase 34 - 123 U/L 73 94 AST 13 - 35 U/L 27 20 ALT 7 - 38 U/L 26 18 Glucose 74 - 99 mg/dL 206 (H) 216 (H) BUN 7 - 21 mg/dL 21 33 (H) Creatinine 0.58 - 0.96 mg/dL 0.97 (H) 1.16 (H) Sodium 136 - 144 mmol/L 142 142 Potassium 3.7 - 5.1 mmol/L 4.0 4.0 Chloride 98 - 107 mmol/L 104 99 CO2 22 - 30 mmol/L 29 29 Anion Gap 8 - 15 mmol/L 9 14 eGFR >=60 mL/min/1.73m 68 55 (L) WBC 3.70 - 11.00 k/uL 5.82 RBC 3.90 - 5.20 m/uL 4.67 Hemoglobin 11.5 - 15.5 g/dL 13.3 Hematocrit 36.0 - 46.0 % 42.0 MCV 80.0 - 100.0 fL 89.9 MCH 26.0 - 34.0 pg 28.5 MCHC 30.5 - 36.0 g/dL 31.7 RDW-CV 11.5 - 15.0 % 14.1 Platelet Count 150 - 400 k/uL 173 MPV 9.0 - 12.7 fL 10.8 Absolute nRBC <0.01 k/uL <0.01 Total Cholesterol, Nonfasting <200 mg/dL 148 Triglycerides, Nonfasting <150 mg/dL 257 (H) HDL Cholesterol, Nonfasting >39 mg/dL 43 LDL Cholesterol, Nonfasting <100 mg/dL 54 Non HDL Cholesterol, Nonfasting <130 mg/dL 105 VLDL Cholesterol, Nonfasting <30 mg/dL 51 (H) Total Chol/HDL Ratio, Nonfasting <5.10 mg/dL 3.44 LDL/HDL Ratio, Nonfasting <2.54 mg/dL 1.26 Hemoglobin A1C 4.3 - 5.6 % 9.7 (H) 8.7 (H) Estimated Average Glucose mg/dL 232 203 TSH 0.270 - 4.200 mIU/L 7.640 (H) 27.100 (H) Vitamin D 25 Hydroxy 31.0 - 80.0 ng/mL 38.8 38.0 Free T3 2.3 - 4.1 pg/mL 2.5 2.4 Free T4 0.9 - 1.7 ng/dL 1.4 1.0 Culture 50,000-<100,000 CFU/ml Normal urogenital omid ASSESSMENT/PLAN: 1. JOSIE (acute kidney injury) (HCC) - ICD9: 584.9, ICD10: N17.9 (primary diagnosis) - BASIC METABOLIC PANEL 2. Type 2 diabetes mellitus with diabetic neuropathy, with long-term current use of insulin (HCC) -ICD9: 250.60, 357.2, V58.67, ICD10: E11.40, Z79.4 3. Leg swelling - ICD9: 729.81, ICD10: M79.89 Nearly resolved, as needed use of furosemide or daily HCTZ when transitioning in the future Checking with home health care to see if she is taking either of these currently as they are filling her pillbox for her and she does not know 4. Injury of humerus, left, subsequent encounter - ICD9: V58.89, 959.2, ICD10: S49.92XD She has PT at home and orthopedic visit scheduled. Continued on with sling. Continue present management. 5. 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) - ICD9: 250.50, 362.05, 362.07, ICD10: E11.3319 - EMPAGLIFLOZIN 25 MG TABLET -on hold following discharge from hospital 6. Generalized edema - ICD9: 782.3, ICD10: R60.1 - HYDROCHLOROTHIAZIDE 25 MG TABLET - on hold following discharge from hospital 7. Chronic midline low back pain, unspecified whether sciatica present - ICD9: 724.2, 338.29, ICD10: M54.50, G89.29 Stable, currently controlled, continue to monitor. - GABAPENTIN 600 MG TABLET Advised To check with [facility] provider The medications we have held for you at discharge from the hospital include: hydrochlorothiazide 12.5 mg, lisinopril 2.5 mg, furosemide 40 mg, and Jardiance 25 mg daily. Check with the home care nurse and verify if you are taking furosemide 40 mg daily as needed or if you ae taking HCTZ 12.5 mg daily. You have lost 26 pounds since we last seen you know so I am thinking you are taking 1 of these diuretics, either HCTZ or furosemide. Levothyroxine dose was increased from 200 mcg daily to 300 mcg daily recently. Denise Alvarado APRN.QUALITY ASSURANCE PRACTICE MANAGER Medical Decision Making: Problems: Moderate: 1+ chronic illnesses with change Data: Unique source(s) for external note(s) reviewed: 1 Unique test result(s) reviewed: 3+ Risk: Moderate: Drug management Medical Decision Making Level: 4 - Moderate documented in [facility] Telephone encounter Note * Telephone Encounter - Alicja Robin RN - 06/08/2024 8:29 AM EDT Pt called and is notified of providers message and instructions. Pt voices understanding. \Let Pt know to have provider give her 2 updated medication lists one for her and one for Rafat RN with [facility] when he comes to see her next. Called and left a message for COLT Douglass with [facility] letting him know this. Alicja Robin RN [facility]2024 Miscellaneous Notes* Telephone Encounter - Alicja Robin RN - 06/08/2024 8:29 AM EDT Pt called and is notified of providers message and instructions. Pt voices understanding. \Let Pt know to have provider give her 2 updated medication lists one for her and one for Rafat RN with [facility] when he comes to see her next. Called and left a message for COLT Douglass with [facility] letting him know this. Alicja Robin RN * Telephone Encounter - Sarina Adams MD - 06/07/2024 7:27 PM EDT Wait for appointment with Denise to clarify medications , especially diuretics. * Telephone Encounter - Vanessa Li RN - 06/06/2024 12:27 PM EDT See below for response to this note. (COPIED) Denise Alvarado APRN.CNS 06/02/24 4:29 PM Note Check to see if taking hydrochlorothiazide daily as ordered. If not recommend resuming. If so may need additional diuretic. Is weight increased? Increased shortness of breath? Ordered metabolic panel. Does she need an OV? 06/06/24 Patient update: Call placed to patient and COLT Douglass with [facility] also remote ruby on rails developer, as he is visiting patient at this time. Today, patient's weight has not been obtained yet. Pt did not weight self in several days. Patient reports no increased SOB currently. Pt and HH Nurse report pt's leg edema has improved. Currently 1+ leg edema, no current SOB at rest.HH Nurse reports pt's lung sounds are clear today. Patient and HH Nurse notified of BMP ordered by ROLF Stewart on 06/02/24. Pt scheduled to have an ECHO today and will try to get lab drawn today. Today patient reports she still feels weak. Walking with cane so she doesn't fall. This nurse made appt for pt with ROLF Stewart for this at 1:40pm for evaluation. Pt unable to come in today. No PCP team appts tomorrow. Please inform pt if needs seen sooner. Current diuretics need clarified for patient. Per HH nurse, there is belief that patient did take Furosemide 40 mg for 3 days, as recommended on 05/23/[address] Adams (see 05/23/24 Telephone Note), however per 05/24/[address] Adams, it states patient is to take Furosemide 40 mg twice daily-with no duration of how long to take. In 05/26/24 phone note, ROLF Stewart advised on 06/02/24: Check to see if taking hydrochlorothiazide daily as ordered. If not recommend resuming. Nurse believes pt has not been taking but will start tomorrow. HH Nurse states they will continue to see patient 1 time per week for 3 more weeks. Nurse is trying to get pt set up with [facility] or [facility] for pill packaging. Please call both HH Nurse Rafat AND patient with any new orders. Rafat: [phone] Thank you. documented in this encounterK[facility]09-04-2024 Telephone encounter Note * Telephone Encounter - Sarina Adams MD - 06/07/2024 7:27 PM EDT Wait for appointment with Denise to clarify medications , especially diuretics. [facility]09-04-2024 Telephone encounter Note* Telephone Encounter - Cole Bower APRN.CNP - 06/07/2024 9:[address] [facility] website checked and validated. All prescriptions have been APPROPRIATELY filled. No suspiciousactivity was identified. 06/07/2024 by Cole Bower APRN.CNP [facility]09-04-2024 Miscellaneous Notes* Telephone Encounter - Cole Bower APRN.CNP - 06/07/2024 9:33 AM EDT [facility] All prescriptions have been APPROPRIATELY filled. No suspiciousactivity was identified. 06/07/2024 by Cole Bower APRN.CNP * Telephone Encounter - Jaylyn Vazquez LPN - 06/06/2024 2:03 PM EDT Patient has been identified by name and date of : Yes Patient phones for refill(s): Requested Prescriptions Pending Prescriptions Disp Refills HYDROcodone-acetaminophen (NORCO) 5-325 mg per tablet Sig: Take 1 tablet by mouth four times a day as needed for pain for up to 30 days. Short term increase to 4 times daily as needed due to fall/rotator cuff injury Patient should start on June. Date of last office visit in primary care: 05/16/2024 Date of next office visit in primary care: 06/08/2024 Please advise. Thank you. Jaylyn Vazquez LPN. documented in this encounterK[facility]09-04-2024 Telephone encounter Note * Telephone Encounter - Tracey De Leon RN - 06/07/2024 8:34 AM EDT See 06/06/2024 TE. Tracey De Leon RN [facility]09-04-2024 Miscellaneous Notes* Telephone Encounter - Tracey De Leon RN - 06/07/2024 8:34 AM EDT See 06/06/2024 TE. Tracey De Leon RN * Telephone Encounter - Tabatha Up LPN - 06/02/2024 6:12 PM EDT No answer at number provided to return call to Libra OT with [facility]. Tabatha Up LPN * Telephone Encounter - Denise Alvarado APRN.CNS - 06/02/2024 4:24 PM EDT Note blood pressure elevation without symptoms. Continue to monitor. No changes at this time. See other message regarding Samantha Romero today. * Telephone Encounter - Tracey De Leon RN - 06/02/2024 3:17 PM EDT Libra OT with [facility] calls to let provider know that at OT visit today blood pressure was elevated. At beginning of visit bp was 169/95 and at end of visit 152/95 (outside of their parameters). Libra reports patient denies any symptoms. Tracey De Leon RN documented in this encounterKet[facility]09-03-2024 Telephone encounter Note * Telephone Encounter - Jaylyn Vazquez LPN - 06/06/2024 2:03 PM EDT Patient has been identified by name and date of : Yes Patient phones for refill(s): Requested Prescriptions Pending Prescriptions Disp Refills HYDROcodone-acetaminophen (NORCO) 5-325 mg per tablet Sig: Take 1 tablet by mouth four times a day as needed for pain for up to 30 days. Short term increase to 4 times daily as needed due to fall/rotator cuff injury Patient should start on June. Date of last office visit in primary care: 05/16/2024 Date of next office visit in primary care: 06/08/2024 Please advise. Thank you. Jaylyn Vazquez LPN. [facility]09-03-2024 Telephone encounter Note* Telephone Encounter - Vanessa Li RN - 06/06/2024 12:27 PM EDT See below for response to this note. (COPIED) Denise Alvarado APRN.ROLF 06/02/24 4:29 PM Note Check to see if taking hydrochlorothiazide daily as ordered. If not recommend resuming. If so may need additional diuretic. Is weight increased? Increased shortness of breath? Ordered metabolic panel. Does she need an OV? 06/06/24 Patient update: Call placed to patient and COLT Douglass with [facility] HH also remote ruby on rails developer, as he is visiting patient at this time. Today, patient's weight has not been obtained yet. Pt did not weight self in several days. Patient reports no increased SOB currently. Pt and HH Nurse report pt's leg edema has improved. Currently 1+ leg edema, no current SOB at rest.HH Nurse reports pt's lung sounds are clear today. Patient and HH Nurse notified of BMP ordered by ROLF Stewart on 06/02/24. Pt scheduled to have an ECHO today and will try to get lab drawn today. Today patient reports she still feels weak. Walking with cane so she doesn't fall. This nurse made appt for pt with ROLF Stewart for this at 1:40pm for evaluation. Pt unable to come in today. No PCP team appts tomorrow. Please inform pt if needs seen sooner. Current diuretics need clarified for patient. Per nurse, there is belief that patient did take Furosemide 40 mg for 3 days, as recommended on 05/23/[address] Adams (see 05/23/24 Telephone Note), however per 05/24/[address] Adams, it states patient is to take Furosemide 40 mg twice daily-with no duration of how long to take. In 05/26/24 phone note, ROLF Stewart advised on 06/02/24: Check to see if taking hydrochlorothiazide daily as ordered. If not recommend resuming. Nurse believes pt has not been taking but will start tomorrow. Nurse states they will continue to see patient 1 time per week for 3 more weeks. Nurse is trying to get pt set up with [facility] or [facility] [employer] for pill packaging. Please call both Nurse Rafat AND patient with any new orders. Rafat: [phone] Thank you. [facility]09-03-2024 Telephone encounter Note* Telephone Encounter - Vanessa Li RN - 06/06/2024 11:57 AM EDT Will close this encounter. See new encounter 06/06/24, for most current information. Vanessa Li RN [facility]09-03-2024 Miscellaneous Notes* Telephone Encounter - Vanessa Li RN - 06/06/2024 11:57 AM EDT Will close this encounter. See new encounter 06/06/24, for most current information. Vanessa Li RN * Telephone Encounter - Sarina Adams MD - 06/04/2024 9:07 PM EDT Not yet addressed. Make sure addressed Wednesday * Telephone Encounter - Denise Alvarado APRN.CNS - 06/02/2024 4:26 PM EDT Check to see if taking hydrochlorothiazide daily as ordered. If not recommend resuming. If so may need additional diuretic. Is weight increased? Increased shortness of breath? Ordered metabolic panel. Does she need an OV? * Telephone Encounter - Iraida Pena RN - 05/29/2024 9:36 AM EDT Cori from [facility] calls and notified of below. Patient has +[address] up to thighs. Patient abdomen is still feeling tight. Patient is still having intermittent chest pain but it is not as bad as it was before. There are no orders for follow up labs for CMP for patient. Does provider want labs ordered? Please review and advise, Iraida Pena RN * Telephone Encounter - Rosa Elena Deluca LPN - 05/27/2024 10:25 AM EDT Left message for Cori to return call to office. * Telephone Encounter - Sarina Adams MD - 05/26/2024 7:48 PM EDT Is she having any leg swelling or other signs of fluid retention? Any orders for follow up labs for CMP? * Telephone Encounter - Kerri Abdi RN - 05/26/2024 1:37 PM EDT Parisa- RN- [facility]- reporting patient's weight today- approximately 250# (pt has an old fashion scaleso nurse unsure how accurate it is). Patient informed nurse, her weight is down 7 lbs. Pt taking lasix 40 mg twice daily. Cori asking if pcp wants patient to continue the lasix? Cori reports hctz is on hold until 06-04-24. BP today 140/68. Cori reports patient has potassium 10mEq in the home. Asking if pcp wants patient to take potassiumsince taking lasix? Potassium lab 05-16-24 was 4.0. Phone Cori with reply: [phone] documented in this encounterK[facility] Telephone encounter Note * Telephone Encounter - Sarina Adams MD - 06/04/2024 9:07 PM EDT Not yet addressed. Make sure addressed Wednesday [facility]08-30-2024 Telephone encounter Note* Telephone Encounter - Tabatha Up LPN - 06/02/2024 6:12 PM EDT No answer at number provided to return call to [facility] OT with [facility]. Tabatha Up LPN [facility]08-30-2024 Telephone encounter Note* Telephone Encounter - Denise Alvarado APRN.ROLF - 06/02/2024 4:26 PM EDT Check to see if taking hydrochlorothiazide daily as ordered. If not recommend resuming. If so may need additional diuretic. Is weight increased? Increased shortness of breath? Ordered metabolic panel. Does she need an OV? [facility]08-30-2024 Telephone encounter Note* Telephone Encounter - Denise Alvarado APRN.ROLF - 06/02/2024 4:24 PM EDT Note blood pressure elevation without symptoms. Continue to monitor. No changes at this time. See other message regarding Samantha Romero today. [facility]08-30-2024 Telephone encounter Note* Telephone Encounter - Tracey De Leon RN - 06/02/2024 3:17 PM EDT Libra OT with [facility] calls to let provider know that at OT visit today blood pressure was elevated. At beginning of visit bp was 169/95 and at end of visit 152/95 (outside of their parameters). Libra reports patient denies any symptoms. Tracey De Leon RN [facility]08-30-2024 History of Present illness Narrative* Carmina Sylvester [facility] - 06/02/2024 11:00 AM EDT Primary Care Pharmacy Visit CC (Reason for Consult): (E11.9) Type 2 diabetes (HCC) (primary encounter diagnosis) Goal(s): A1c <7% Last Collaborating Provider Visit: 02/11/24 with Cole Bower APRN, ADVISORY SOFTWARE ENGINEER Samantha Romero is a 58 year old female presenting for follow up visit telephone call. Patient consents to pharmacy collaborative practice agreement. Last Pharmacy Visit: 03/31/24 - [facility] Interim Events: - 05/16/24 A1c results show improvement from 10.7% to 9.7% HPI: Reports doing okay States she fell last month and tore her rotator cuff, has therapy coming to the house. Is doing a lot better now Has home health care nurse help set up pillbox to help with adherence to medications Reports has had quite a few low readings <70 mg/dl throughout the day recently When was in the hospital, was recommended to stop a couple medications; however not sure which ones Current DM Medications: Jardiance 25 mg once daily Trulicity 4.5 mg once weekly on Sundays Tresiba 86 units once daily at bedtime Novolog 22 units + sliding scale #2 with meals three times a day Previously Trialed DM Meds: Metformin - diarrhea (even on ER) GLYCEMIC CONTROL: Glucometer present at visit: No Hypoglycemia: Yes - reports low readings in 50s, 60s a couple of times Reports many readings in 80-90s Highest was 250 however, has not had a readings this high in a while Past medical history reviewed. ALLERGIES Allergen Reactions Metformin Diarrhea Diarrhea every time takes, even with ER dose Oxycodone GI Upset Percocet [Oxycodone* GI Upset and off balance Current Outpatient Medications Medication Sig Dispense Refill levothyroxine (SYNTHROID) 200 mcg tablet Take 1.5 tablets by mouth daily before breakfast. 90 tablet 3 blood sugar diagnostic (FREESTYLE LITE STRIPS) test strip Test blood sugar(s) 4 times daily. Dx: Other DM Code E11.40 Insulin: Yes 50 Strip 3 HYDROcodone-acetaminophen (NORCO) 5-325 mg per tablet Take 1 tablet by mouth four times a day as needed for pain for up to 30 days. Short term increase to 4 times daily as needed due to fall/rotator cuff injury hydroCHLOROthiazide 25 mg tablet Take 1 tablet by mouth once daily. 30 tablet 3 meloxicam (MOBIC) 15 mg tablet Take 1 tablet by mouth once daily as needed for pain. With food. 30 tablet 1 omeprazole (PRILOSEC) 40 mg capsule take 1 capsule by mouth once daily 30 capsule 5 flash glucose sensor (FREESTYLE TAYLOR 14 DAY SENSOR) kit Use to check blood sugar 4 times daily. Please give 2 sensors per refill 2 Kit 5 dicyclomine (BENTYL) 10 mg capsule Take 1 capsule by mouth before meals and at bedtime. for abdominal pain 120 capsule 5 dulaglutide (TRULICITY) 4.5 mg/0.5 mL pen injector Inject 4.5 mg subcutaneously one time a week. 6 mL 3 insulin degludec (TRESIBA FLEXTOUCH U-200) 200 unit/mL (3 mL) injection Inject 86 Units subcutaneously daily at bedtime. 18 mL 5 Fenofibrate (LOFIBRA) 160 mg tablet Take 1 tablet by mouth once daily. 30 tablet 11 insulin aspart U-100 (NOVOLOG) 100 unit/mL (3 mL) INJECT 22 UNITS SUBCUTANEOUSLY WITH MEALS THREE TIMES A DAY PLUS SLIDING SCALE #2 (add 2 units for every 50 points above 150 mg/dl) BASED ON PRE-MEAL BLOOD SUGAR (MAX: 96 UNITS PER DAY) 30 mL 11 rosuvastatin (CRESTOR) 10 mg tablet Take 1 tablet by mouth daily at bedtime. 30 tablet 11 gabapentin (NEURONTIN) 600 mg tablet Take 1 tablet by mouth three times a day for 90 days. 90 tablet 2 hydrOXYzine HCl (ATARAX) 25 mg tablet Take 1-2 tablets by mouth at bedtime as needed. 30 tablet 3 empagliflozin (JARDIANCE) 25 mg tablet Take 1 tablet by mouth daily with breakfast. 90 tablet 3 Insulin [place], Disposable, (DROPLET PEN NEEDLE) 31 gauge x 3/16 use 1 PEN NEEDLE to inject MEDICATION subcutaneously four times a day 200 Each 2 fluticasone (FLONASE) 50 mcg/actuation nasal spray Use 1-2 Sprays in each nostril once daily as needed. 1 Each 11 PEG 400-propylene glycol (SYSTANE ULTRA) 0.4-0.3 % ophthalmic solution Use 1 Drop in both eyes fourtimes daily. (Patient taking differently: Use 1 Drop in both eyes four times daily. Uses three times daily) 15 mL 4 peg 400-propylene glycol (SYSTANE GEL) 0.4-0.3 % drpg Use 1 Drop in both eyes daily at bedtime. 10 mL 2 Cholecalciferol, Vitamin D3, 125 mcg (5,000 unit) cap Take 1 capsule by mouth once daily. 90 capsule 2 blood sugar diagnostic (BLOOD GLUCOSE TEST) test strip Test blood sugar(s) 4 times daily. Dx: OtherDM Code E11.40 Insulin: Yes 50 Strip 11 blood sugar diagnostic (BLOOD GLUCOSE TEST) test strip Test blood sugar(s) 4 times daily. Dx: Type 2 DM - Controlled E11.9 Insulin: Yes 200 Strip 11 OXYGEN, HOME THERAPY, Inhale as instructed as directed. Uses at 2 l/m via nasal cannula during the day and 4 l/m at night hydrocortisone 2.5 % cream Apply 1 application to affected area twice daily. Location: hands and chest (Patient taking differently: Apply 1 application to affected area two times a day. Location: hands and chest Uses as needed) 20 g 0 Blood-Glucose Meter monitoring kit Check sugars daily and as needed (Freestyle Lite is what she hashad) 1 Each 0 Lancets lancets Test blood sugar(s) 4 times daily. Dx: E11.9 Insulin: Yes (Patient taking differently: Test blood sugar(s) 4 times daily. Dx: E11.9 Insulin: Yes Uses as needed) 200 Each 11 clotrimazole-betamethasone (LOTRISONE) cream Apply 1 application to affected area twice daily. X 2 weeks. (Patient taking differently: Apply 1 application to affected area two times a day. X 2 weeks. Uses as needed) 45 g 0 Miscellaneous Medical Supply (BLOOD PRESSURE CUFF) 1 Each as needed. Blood pressure Monitor and Cuff, use as directed. Dx: I10 Hypertension 1 Each 0 flash glucose scanning reader (RedbeaconSTYLE TAYLOR 14 DAY READER) Use to check blood sugar 4 times daily 1 Each 0 estradiol (ESTRACE) 0.01 % (0.1 mg/gram) vaginal cream Use 3 g vaginally two times a week. 42.5 g 6 No current facility-administered medications for this visit. Pill bottles are not present. Adherence: denies missed doses. Rx coverage: Payor: [facility] MEDICAID / Plan: [facility] MEDICAID / Product Type: Medicaid / Medications affordable? Yes PHARMACOTHERAPY PREVENTATIVE MEDS: On NEID/ARB: No On Statin: Yes On ASA: No EXAM: LMP 04/27/2016 Last 3 Encounter BP Readings: Date: BP: 05/16/2024 140/62 02/21/2024 99/52 02/11/2024 120/60 Wt: 112.4 kg (247 lb 12.8 oz) BMI: 42.53 kg/(m^2) LABS: Lab Results Component Value Date HBA1C 9.7 05/16/2024 HBA1C 10.7 02/02/2024 HBA1C 12.2 10/11/2023 HBA1C 11.0 10/21/2022 HBA1C 8.3 04/10/2021 HBA1C 10.3 10/25/2020 HBA1C 8.5 04/10/2020 Glucose 206 05/16/2024 BUN 21 05/16/2024 Creatinine 0.97 05/16/2024 Sodium 142 05/16/2024 Potassium 4.0 05/16/2024 Chloride 104 05/16/2024 CO2 29 05/16/2024 Protein, Total 6.4 05/16/2024 Albumin 3.6 05/16/2024 Calcium 9.6 05/16/2024 Alkaline Phosphatase 73 05/16/2024 Bilirubin, Total 0.2 05/16/2024 AST 27 05/16/2024 ALT 26 05/16/2024 Lab Results Component Value Date CHOL 148 05/16/2024 CHOL 190 04/10/2021 CHOL 172 01/16/2021 LDL 54 05/16/2024 LDL 04/10/2021 Unable to calculate due to increased Triglycerides. A Direct LDL Cholesterol measurement will not be performed. If clinically indicated, a fasting Basic Lipid Panel (LIPB) may be ordered. LDL 01/16/2021 Unable to calculate due to increased Triglycerides. See LDL-Chol, Direct. HDL 43 05/16/2024 HDL 34 04/10/2021 HDL 33 01/16/2021 TG 257 05/16/2024 TG 596 04/10/2021 TG 412 01/16/2021 Albumin/Creat Ratio (mg/g) Date Value 10/11/2023 424 (H) eGFR-All Other Races (.) Date Value 05/22/2021 48 Estimated Glomerular Filtration Rate (mL/min/1.73m ) Date Value 05/16/2024 68 ASSESSMENT/PLAN: 1. Type 2 diabetes (HCC) - ICD9: 250.00, ICD10: E11.9 - Improving control - Decrease Tresiba to 80 units once daily - Decrease Novolog to 20 units + SS2 with meals - Continue all other medications as prescribed - Statin prescribed - rosuvastatin - Blood glucose monitoring on a continuous glucose monitoring schedule - Counseled on healthy diet and regular exercise - Follow up in 1 month, sooner should any other issues arise. - Instructed patient to bring medications/medication list following recent hospitalization to next office visit to discuss which medications were changed Follow Up: Next PCP visit: 06/14/24 Next PharmD visit: 07/07/24 Carmina Sylvester, PharmD, BCACP Primary Care Clinical Hose Tender documented in this encounterK[facility] Telephone encounter Note * Telephone Encounter - Iraida Pena RN - 05/29/2024 9:36 AM EDT Parisa from [facility] calls and notified of below. Patient has +3 [address] the way up to thighs. Patient abdomen is still feeling tight. Patient is still having intermittent chest pain but it is not as bad as it was before. There are no orders for follow up labs for CMP for patient. Does provider want labs ordered? Please review and advise, Iraida Pena RN [facility]08-24-2024 Telephone encounter Note* Telephone Encounter - Rosa Elena Deluca LPN - 05/27/2024 10:25 AM EDT Left message for Cori to return call to office. [facility]08-23-2024 Telephone encounter Note* Telephone Encounter - Sarina Adams MD - 05/26/2024 7:48 PM EDT Is she having any leg swelling or other signs of fluid retention? Any orders for follow up labs for CMP? [facility]08-23-2024 Telephone encounter Note* Telephone Encounter - Kerri Abdi RN - 05/26/2024 1:37 PM EDT Parisa- RN- [facility]- reporting patient's weight today- approximately 250# (pt has an old fashion scaleso nurse unsure how accurate it is). Patient informed nurse, her weight is down 7 lbs. Pt taking lasix 40 mg twice daily. Cori asking if pcp wants patient to continue the lasix? Cori reports hctz is on hold until 06-04-24. BP today 140/68. Cori reports patient has potassium 10mEq in the home. Asking if pcp wants patient to take potassiumsince taking lasix? Potassium lab 05-16-24 was 4.0. Phone Cori with reply: [phone] [facility]08-22-2024 Telephone encounter Note* Telephone Encounter - Mara Degroot LPN - 05/25/2024 4:56 PM EDT No answer. Left providers message on secure voicemail and ask to call back with any questions or concerns; [facility]08-22-2024 Miscellaneous Notes* Telephone Encounter - Mara Degroot LPN - 05/25/2024 4:56 PM EDT No answer. Left providers message on secure voicemail and ask to call back with any questions or concerns; * Telephone Encounter - Denise Alvarado APRN.CNS - 05/25/2024 4:28 PM EDT Yes okay for home health care * Telephone Encounter - Reina Blanco LPN - 05/25/2024 3:38 PM EDT Bhumi MULTANI from [facility] asking for VO to meet with patient next Wednesday to help her with some resources. Please contact her back with ok. [phone] documented in this encounterK[facility]08-22-2024 Telephone encounter Note * Telephone Encounter - Denise Alvarado APRN.CNS - 05/25/2024 4:28 PM EDT Yes okay for home health care [facility]08-22-2024 Telephone encounter Note* Telephone Encounter - Reina Blanco LPN - 05/25/2024 3:38 PM EDT Bhumi MULTANI from [facility] asking for VO to meet with patient next Wednesday to help her with some resources. Please contact her back with ok. [phone] [facility]08-21-2024 Telephone encounter Note* Telephone Encounter - Tiny Leon RN - 05/24/2024 6:19 PM EDT Spoke with Belem @ [facility]. Given message from provider's office. She verbalizes understanding. Tiny Leon RN [facility]08-21-2024 Miscellaneous Notes* Telephone Encounter - Tiny Leon RN - 05/24/2024 6:19 PM EDT Spoke with Belem @ [facility]. Given message from provider's office. She verbalizes understanding. Tiny Leon RN * Telephone Encounter - Sarina Adams MD - 05/24/2024 6:02 PM EDT Since they did not start Lasix 40 mg daily yet, have her take 40 mg twice daily starting . Noted they will check weight on Wednesday. Will await their progress report. Will make adjustment in dose after see how she responds to the Lasix and plan to lower the dose once gets the 10 pounds off and/or leg swelling resolves or at least gets back to normal. * Telephone Encounter - Alena Napier LPN - 05/24/2024 2:23 PM EDT Belem from [facility], they did not get the orders that were to be faxed. Read message from PCP. Belem is asking for clarification on how patient should take her Lasix. She was there today and patients swelling is 2+ up into her abdomen. She did have a 10 pound weight gain in 8 days, patient is more short of breath but not crackle sounds in her lungs. They are adding a nursing visit to the end of the week to recheck her weight. Please clarify how the Lasix should be taken. documented in this encounterK[facility]08-[facility]-2024 Telephone encounter Note * Telephone Encounter - Sarina Adams MD - 05/24/2024 6:02 PM EDT Since they did not start Lasix 40 mg daily yet, have her take 40 mg twice daily starting . Noted they will check weight on Wednesday. Will await their progress report. Will make adjustment in dose after see how she responds to the Lasix and plan to lower the dose once gets the 10 pounds off and/or leg swelling resolves or at least gets back to normal. [facility]08-21-2024 Telephone encounter Note* Telephone Encounter - Alena Napier LPN - 05/24/2024 2:23 PM EDT Belem from [facility], they did not get the orders that were to be faxed. Read message from PCP. Belem is asking for clarification on how patient should take her Lasix. She was there today and patients swelling is 2+ up into her abdomen. She did have a 10 pound weight gain in 8 days, patient is more short of breath but not crackle sounds in her lungs. They are adding a nursing visit to the end of the week to recheck her weight. Please clarify how the Lasix should be taken. [facility]08-21-2024 Telephone encounter Note* Telephone Encounter - Iraida Pena RN - 05/24/2024 12:03 PM EDT Carolina calls and notified of below. Voices understanding. [place] asking for provider recommendations to be faxed to [phone]. Faxed as requested. Iraida Pena RN [facility]08-21-2024 Miscellaneous Notes* Telephone Encounter - Iraida Pena RN - 05/24/2024 12:03 PM EDT [place] calls and notified of below. Voices understanding. [place] asking for provider recommendations to be faxed to [phone]. Faxed as requested. Iraida Pena RN * Telephone Encounter - Tabatha Up LPN - 05/24/2024 9:09 AM EDT Message left on secure Q-gomail to call office for update. Tabatha Up LPN * Telephone Encounter - Sarina Adams MD - 05/23/2024 8:29 PM EDT Would resume Lasix if confirm swelling and is not warranting admissio.n Noted BUN and Cr had been high in hospital, so someone there might have stopped it. She might need to take 40 mg twice daily for 3 days to mobilize the fluid out of her legs if 40mg once daily not effective. May also need legs wrapped with ENID wrap to help get swelling out of legs. FU in office if needed. * Telephone Encounter - Iraida Pena RN - 05/23/2024 4:46 PM EDT Carolina from [facility] calls and states that patient went and weighed self. Patient is 265 pounds today. Patient was 247 on 05/16/2024 at the hospital. Carolina states that nursing is going out tosee patient tomorrow. Carolina is afraid that patient may have to be admitted into hospital. Please review and advise, Iraida Pena RN * Telephone Encounter - Kerri Abdi RN - 05/23/2024 4:26 PM EDT Carolina- [facility]- reports patient is having a lot of swelling in legs and it is hard for her to get around. Patient tells Carolina, legs are tight. No SOB. No seeping. Patient took her meds today, including hctz, and Carloina reports patient's lasix 40 mg is on hold until 06-04-24- started this 04-20-24. Not clear who ordered the hold. Carolina states they can see patient tomorrow, to do labs with provider wants them to. Asking if you want patient to restart lasix? Please phone Carolina with reply: [phone] documented in this encounterK[facility]08-[facility]-2024 Telephone encounter Note * Telephone Encounter - Tabatha Up LPN - 05/24/2024 9:09 AM EDT Message left on secure voicemail to call office for update. Tabatha Up LPN [facility]08-20-2024 Telephone encounter Note* Telephone Encounter - Sarina Adams MD - 05/23/2024 8:29 PM EDT Would resume Lasix if confirm swelling and is not warranting admissio.n Noted BUN and Cr had been high in hospital, so someone there might have stopped it. She might need to take 40 mg twice daily for 3 days to mobilize the fluid out of her legs if 40mg once daily not effective. May also need legs wrapped with ENID wrap to help get swelling out of legs. FU in office if needed. [facility]08-20-2024 Telephone encounter Note* Telephone Encounter - Iraida Pena RN - 05/23/2024 4:46 PM EDT Carolina from [facility] calls and states that patient went and weighed self. Patient is 265 pounds today. Patient was 247 on 05/16/2024 at the hospital. Carolina states that nursing is going out tosee patient tomorrow. Carolina is afraid that patient may have to be admitted into hospital. Please review and advise, Iraida Pena RN [facility]08-20-2024 Telephone encounter Note* Telephone Encounter - Kerri Abdi RN - 05/23/2024 4:26 PM EDT Carolina- [facility]- reports patient is having a lot of swelling in legs and it is hard for her to get around. Patient tells Carolina, legs are tight. No SOB. No seeping. Patient took her meds today, including hctz, and Carolina reports patient's lasix 40 mg is on hold until 06-04-24- started this 04-20-24. Not clear who ordered the hold. Carolina states they can see patient tomorrow, to do labs with provider wants them to. Asking if you want patient to restart lasix? Please phone Carolina with reply: [phone] [facility]08-19-2024 Telephone encounter Note* Telephone Encounter - Rosa Elena Deluca LPN - 05/22/2024 3:56 PM EDT Order has been faxed. [facility]08-19-2024 Miscellaneous Notes* Telephone Encounter - Rosa Elena Deluca LPN - 05/22/2024 3:56 PM EDT Order has been faxed. * Telephone Encounter - Cole Bower APRN.CNP - 05/22/2024 12:35 PM EDT Order printed, please fax. Thanks! * Telephone Encounter - Sunita Saez LPN - 05/22/2024 12:29 PM EDT Last OV: 05/16/24 Bhumi with [facility] is calling to request an order for a raised toilet seat with handles to be faxed to [employer] [facility] [employer]. Fax to: [phone]. Sunita Saez LPN documented in this encounterK[facility]08-[facility]-2024 Telephone encounter Note * Telephone Encounter - Cole Bower APRN.CNP - 05/22/2024 12:35 PM EDT Order printed, please fax. Thanks! [facility] [place]08-19-2024 Telephone encounter Note* Telephone Encounter - Sunita Saez LPN - 05/22/2024 12:29 PM EDT Last OV: 8/13/24 Bhumi with [facility] is calling to request an order for a raised toilet seat with handles to be faxed to [facility]. Fax to: [phone]. Sunita Saez LPN [facility]08-15-2024 Telephone encounter Note* Telephone Encounter - Denise Alvarado APRN.CNS - 05/18/2024 1:03 PM EDT [facility] [place]08-15-2024 Miscellaneous Notes* Telephone Encounter - Denise Alvarado APRN.CNS - 05/18/2024 1:03 PM EDT [facility] * Telephone Encounter - Nida Hamilton LPN - 05/18/2024 12:25 PM EDT Kellen from [facility] calling with OT plan of care, 1 visit weekly for 1 week, then 2 visits weekly for 4 weeks. Working on left arm mobility and ADL's. This was a delay of care she has been booked a lot. No need for return call. documented [facility] [place]24 Telephone encounter Note * Telephone Encounter - Nida Hamilton LPN - 05/18/2024 12:25 PM EDT Kellen from [facility] calling with OT plan of care, 1 visit weekly for 1 week, then 2 visits weekly for 4 weeks. Working on left arm mobility and ADL's. This was a delay of care she has been booked a lot. No need for return call. [facility] [place]08-13-2024 Procedure note* Aby Mancuso RPFT - 05/16/2024 3:11 PM EDTAssociated Order(s): OXIMETRY WITH AMBULATION RESPIRATORY THERAPY OXIMETRY WITH AMBULATION Oximetry with Ambulation Test for This Encounter O2 Device O2 Adapter NC O2 Flow SpO2% HR Activity Ft Walked (ft) Time (min) Avg Speed (MPH) R/A 86 69 Resting NC 2 94 69 Resting NC 2 92 83 Walking, usual pace 135 3 0.51 General Information Pulse Oximetry Site Total Time Spent Walking Assistance/O2 Supply Carrier L Index Finger 30 Wheeled Walker NAME: Aby DENIS Mancuso PATIENT NAME: Samantha Romero DATE: May 16, 2024 TIME: 3:11 PM Comment: [facility] [place]08-13-2024 Procedure note* Aby Mancuso RPFT - 05/16/2024 3:11 PM EDTAssociated Order(s): OXIMETRY WITH AMBULATION RESPIRATORY THERAPY OXIMETRY WITH AMBULATION Oximetry with Ambulation Test for This Encounter O2 Device O2 Adapter NC O2 Flow SpO2% HR Activity Ft Walked (ft) Time (min) Avg Speed (MPH) R/A 86 69 Resting NC 2 94 69 Resting NC 2 92 83 Walking, usual pace 135 3 0.51 General Information Pulse Oximetry Site Total Time Spent Walking Assistance/O2 Supply Carrier L Index Finger 30 Wheeled Walker NAME: Aby DENIS Mancuso PATIENT NAME: Samantha Romero DATE: May 16, 2024 TIME: 3:11 PM Comment: documented in [facility] [place] History of Present illness Narrative* Aby Mancuso RPFT - 05/16/2024 3:09 PM EDT PULM FUNCTION: Provider: Brooke Be PA-C Assisting Tech: Aby Mancuso RPFT Oximetry - Ambulation: 1 documented in this encounterK[facility] [place]08-13-2024 Instructions* Patient Instructions* Cole Bower APRN.KENDAL - 05/16/2024 1:59 PM EDT Get blood work today. I will send a my chart message with your blood work results. Schedule to see orthopedics for your shoulder. Restart hydrochlorothiazide at 25 mg daily. Ok to increase the Reynolds to 4 times daily if needed for short term. See me back in 4 weeks. documented in this [facility] [place]08-13-[facility]24 History of Present illness Narrative* Cole Bower APRN.KENDAL - 05/16/2024 1:46 PM EDT SUBJECTIVE Samantha Romero is a 58 year old female here today for a check up on her medical problems. Chief Complaint Patient presents with: Follow Up: med refills, fall follow up from 05/02/24 HPI Samantha Romero is a 58 year old female. She is an established patient of Sarina Adams MD. Here today for a 3 month follow up. Recently had a fall 05/02. Was walking in to [employer], got dizzy and fell. Tore her rotator cuff per patient. Was transported to ER by ambulance. Nursing coming inonce a week. PT twice a week. Notes issues with pain and weakness. No MRI of the shoulder, xray done in ER with the following impression: elevation of the humeral head. Rotator cuff injury cannot be excluded. Mild hypertrophy at the acromioclavicular articulation.. Also sees pharmD, cardiology, pulmonary. History of HTN, DM, chronic hypoxemic respiratory failure,on o2 via nasal canula. Not checking her blood pressures. Blood sugars are doing okay per patient. Notes she had a UTI, was treated but concerned this is back now. Her medications were reviewed today and her list is now up to date. Medications Current Outpatient Medications Medication Sig blood sugar diagnostic (FREESTYLE LITE STRIPS) test strip Test blood sugar(s) 4 times daily. Dx: Other DM Code E11.40 Insulin: Yes HYDROcodone-acetaminophen (NORCO) 5-325 mg per tablet Take 1 tablet by mouth four times a day as needed for pain for up to 30 days. Short term increase to 4 times daily as needed due to fall/rotator cuff injury hydroCHLOROthiazide 25 mg tablet Take 1 tablet by mouth once daily. meloxicam (MOBIC) 15 mg tablet Take 1 tablet by mouth once daily as needed for pain. With food. omeprazole (PRILOSEC) 40 mg capsule take 1 capsule by mouth once daily flash glucose sensor (FREESTYLE TAYLOR 14 DAY SENSOR) kit Use to check blood sugar 4 times daily. Please give 2 sensors per refill dicyclomine (BENTYL) 10 mg capsule Take 1 capsule by mouth before meals and at bedtime. for abdominal pain dulaglutide (TRULICITY) 4.5 mg/0.5 mL pen injector Inject 4.5 mg subcutaneously one time a week. insulin degludec (TRESIBA FLEXTOUCH U-200) 200 unit/mL (3 mL) injection Inject 86 Units subcutaneously daily at bedtime. Fenofibrate (LOFIBRA) 160 mg tablet Take 1 tablet by mouth once daily. insulin aspart U-100 (NOVOLOG) 100 unit/mL (3 mL) INJECT 22 UNITS SUBCUTANEOUSLY WITH MEALS THREE TIMES A DAY PLUS SLIDING SCALE #2 (add 2 units for every 50 points above 150 mg/dl) BASED ON PRE-MEAL BLOOD SUGAR (MAX: 96 UNITS PER DAY) rosuvastatin (CRESTOR) 10 mg tablet Take 1 tablet by mouth daily at bedtime. gabapentin (NEURONTIN) 600 mg tablet Take 1 tablet by mouth three times a day for 90 days. hydrOXYzine HCl (ATARAX) 25 mg tablet Take 1-2 tablets by mouth at bedtime as needed. empagliflozin (JARDIANCE) 25 mg tablet Take 1 tablet by mouth daily with breakfast. Insulin [place], Disposable, (DROPLET PEN NEEDLE) 31 gauge x 3/16 use 1 PEN NEEDLE to inject MEDICATION subcutaneously four times a day fluticasone (FLONASE) 50 mcg/actuation nasal spray Use 1-2 Sprays in each nostril once daily as needed. PEG 400-propylene glycol (SYSTANE ULTRA) 0.4-0.3 % ophthalmic solution Use 1 Drop in both eyes fourtimes daily. (Patient taking differently: Use 1 Drop in both eyes four times daily. Uses three times daily) peg 400-propylene glycol (SYSTANE GEL) 0.4-0.3 % drpg Use 1 Drop in both eyes daily at bedtime. Cholecalciferol, Vitamin D3, 125 mcg (5,000 unit) cap Take 1 capsule by mouth once daily. blood sugar diagnostic (BLOOD GLUCOSE TEST) test strip Test blood sugar(s) 4 times daily. Dx: OtherDM Code E11.40 Insulin: Yes levothyroxine (SYNTHROID) 200 mcg tablet Take 1 tablet by mouth daily before breakfast. blood sugar diagnostic (BLOOD GLUCOSE TEST) test strip Test blood sugar(s) 4 times daily. Dx: Type 2 DM - Controlled E11.9 Insulin: Yes OXYGEN, HOME THERAPY, Inhale as instructed as directed. Uses at 2 l/m via nasal cannula during the day and 4 l/m at night hydrocortisone 2.5 % cream Apply 1 application to affected area twice daily. Location: hands and chest (Patient taking differently: Apply 1 application to affected area two times a day. Location: hands and chest Uses as needed) Blood-Glucose Meter monitoring kit Check sugars daily and as needed (Freestyle Lite is what she hashad) Lancets lancets Test blood sugar(s) 4 times daily. Dx: E11.9 Insulin: Yes (Patient taking differently: Test blood sugar(s) 4 times daily. Dx: E11.9 Insulin: Yes Uses as needed) clotrimazole-betamethasone (LOTRISONE) cream Apply 1 application to affected area twice daily. X 2 weeks. (Patient taking differently: Apply 1 application to affected area two times a day. X 2 weeks. Uses as needed) Miscellaneous Medical Supply (BLOOD PRESSURE CUFF) 1 Each as needed. Blood pressure Monitor and Cuff, use as directed. Dx: I10 Hypertension flash glucose scanning reader (FREESTYLE TAYLOR 14 DAY READER) Use to check blood sugar 4 times daily estradiol (ESTRACE) 0.01 % (0.1 mg/gram) vaginal cream Use 3 g vaginally two times a week. No current facility-administered medications for this visit. ALLERGIES Allergen Reactions Metformin Diarrhea Diarrhea every time takes, even with ER dose Oxycodone GI Upset Percocet [Oxycodone* GI Upset and off balance ACTIVE PROBLEM LIST Hypothyroid - 04/19/2014 (A priority) Diabetic Eye Exam ([facility]) - 04/05/2014 (A priority) Hyperlipidemia - 04/05/2014 (A priority) Kidney Stone On Left Side - 04/12/2014 (C priority) Comment: Dr. Ash is her doctor. Pericardial Effusion - 01/25/2023 Obesity, Class III, BMI >= 40 - 12/18/2022 Gastroesophageal Reflux Disease - 10/19/2022 Chronic Midline Low Back Pain - 10/19/2022 Esophageal Dysphagia - 10/19/2022 Gastroesophageal Reflux Disease With Esophagitis Without Hemorrhage - 10/19/2022 Comment: Intermittent reflux Myasthenia Gravis ([facility]) - 07/30/2022 Type 2 Diabetes Mellitus With Diabetic Neuropathy, With Long-Term Current Use of Insulin ([facility]) - 07/30/2022 Bilateral Leg Edema - 07/30/2022 Comment: worse on left Dysuria - 07/30/2022 Comment: Follow up with gynecology 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 Chronic Hypoxemic Respiratory Failure ([facility]) - 12/09/2021 Pneumonia Due to Covid-19 Virus - 08/05/2021 Status Post Cataract Extraction and Insertion of Intraocular Lens of Right Eye - 06/03/2021 Combined Forms of Age-Related Cataract of Left Eye - 05/09/2021 Type 2 Diabetes Mellitus With Moderate Nonproliferative Diabetic Retinopathy With Macular Edema ([facility]) - 05/09/2021 Type 2 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 Macular Edema, Without Long-Term Current Use of Insulin ([facility]) - 05/09/2021 Uncontrolled Type 2 Diabetes With Neuropathy - 08/20/2015 Abnormally Small Mouth - 06/24/2015 Essential Hypertension - 06/24/2015 Thrombocytopenia ([facility]) - 06/24/2015 Noncompliance - 10/17/2014 OA (osteoarthritis) of hip, bilateral - 04/04/2014 Social History Tobacco Use Smoking status: Former Packs/day: 1.00 Years: 30.00 Additional pack years: 0.00 Total pack years: 30.00 Types: Cigarettes Quit date: 11/04/2013 Years since quittin.5 Smokeless tobacco: Never Vaping Use Vaping Use: Never used Substance Use Topics Alcohol use: Not Currently Comment: wine cool every once in a while Drug use: Not Currently Types: Marijuana Review of Systems Respiratory: Negative for chest tightness and wheezing. Cardiovascular: Negative. Genitourinary: Positive for dysuria. Musculoskeletal: Positive for arthralgias and myalgias. OBJECTIVE BP 140/62 Pulse 73 Resp 18 Ht 5' 4 (1.63m) Wt 247 lb 12.8 oz (112.4kg) SpO2 90[on O2 at 2 liters via NC]% LMP 04/27/2016 BMI 42.51 kg/(m^2). Physical Exam Vitals and nursing note reviewed. Constitutional: General: She is awake. She is not in acute distress. Appearance: Normal appearance. She is well-developed and well-groomed. She is not ill-appearing, toxic-appearing or diaphoretic. HENT: Head: Normocephalic. Right Ear: External ear normal. Left Ear: External ear normal. Nose: Nose normal. Eyes: General: Vision grossly intact. Conjunctiva/sclera: Conjunctivae normal. Pupils: Pupils are equal, round, and reactive to light. Neck: Vascular: No JVD. Trachea: Trachea normal. Cardiovascular: Rate and Rhythm: Normal rate and regular rhythm. Pulses: Normal pulses. Heart sounds: Normal heart sounds. No murmur heard. Pulmonary: Effort: Pulmonary effort is normal. No accessory muscle usage, prolonged expiration or respiratory distress. Breath sounds: Normal breath sounds. Musculoskeletal: Left shoulder: Decreased range of motion. Cervical back: Neck supple. Comments: Left shoulder with very limited range of motion, wearing a sling during the visit Skin: General: Skin is warm and dry. Capillary Refill: Capillary refill takes less than 2 seconds. Neurological: General: No focal deficit present. Mental Status: She is alert and oriented to person, place, and time. Mental status is at baseline. Psychiatric: Attention and Perception: Attention and perception normal. Mood and Affect: Mood and affect normal. Speech: Speech normal. Behavior: Behavior normal. Behavior is cooperative. Thought Content: Thought content normal. Cognition and Memory: Cognition and memory normal. Judgment: Judgment normal. ASSESSMENT/PLAN: 1. Injury of left rotator cuff, subsequent encounter - ICD9: V58.89, 959.2, ICD10: S46.002D (primary diagnosis) She likely needs MRI but will not tolerate laying flat for this. Refer to ortho for further evaluation. - CONSULT TO ORTHOPAEDICS 2. Chronic midline low back pain, unspecified whether sciatica present - ICD9: 724.2, 338.29, ICD10: M54.50, G89.29 On norco for chronic back pain but currently dealing with acute shoulder pain, ok for short term pain medication increase. - HYDROCODONE 5 MG-ACETAMINOPHEN 325 MG TABLET 3. Chronic SI joint pain - ICD9: 724.6, 338.29, ICD10: M53.3, G89.29 See #1 and #2 - HYDROCODONE 5 MG-ACETAMINOPHEN 325 MG TABLET 4. Dysuria - ICD9: 788.1, ICD10: R30.0 Check urine today. Treat accordingly. - URINALYSIS, WITH MICROSCOPIC - URINE CULTURE 5. Type 2 diabetes mellitus with diabetic neuropathy, with long-term current use of insulin (HCC) -ICD9: 250.60, 357.2, V58.67, ICD10: E11.40, Z79.4 - Control undetermined, due for labs - Continue current medications - Counseled on healthy diet and regular exercise Neuropathy stable. - HEMOGLOBIN A1C 6. Mixed hyperlipidemia - ICD9: 272.2, ICD10: E78.2 - Control undetermined, due for labs - Counseled on healthy diet and regular exercise - LIPID PANEL, NONFASTING 7. Acquired hypothyroidism - ICD9: 244.9, ICD10: E03.9 - Instructed patient on importance of taking on an empty stomach either first thing in the morning or at bedtime. - THYROID STIMULATING HORMONE - T3, FREE - T4 FREE/FREE THYROXINE 8. Vitamin D deficiency - ICD9: 268.9, ICD10: E55.9 - VITAMIN D 25 HYDROXY 9. Generalized edema - ICD9: 782.3, ICD10: R60.1 Restart low dose HCTZ. - HYDROCHLOROTHIAZIDE 25 MG TABLET 10. Chronic hypoxemic respiratory failure (HCC) - ICD9: 518.83, 799.02, ICD10: J96.11 Following with pulmonary. 11. Encounter for therapeutic drug monitoring - ICD9: V58.83, ICD10: Z51.81 - COMPLETE BLOOD COUNT AND DIFFERENTIAL - COMPREHENSIVE METABOLIC PANEL Portions of this note have been entered by ancillary staff. I have reviewed and when necessary edited, so that they are an adequate record of my encounter with this patient Please note that parts of this document were created using voice recognition software and therefore may contain grammatical errors. Patient verbalizes understanding of instructions from today's visit and in agreement with treatmentplan. Questions answered. Agrees to call the office if questions, concerns of issues with acute symptoms not improving or if they worsen. See diagnoses and orders for additional plan(s). Allergies and medications were reviewed, list was updated, and refills given if needed. Past medical, surgical, social, and family history reviewed and updated as appropriate. Encouraged proper diet & exercise as well as compliance with taking medications. Age- appropriate health preventative measures were discussed. Return in about 4 weeks (around 06/13/2024) for Follow up on chronic conditions and medications.. Cole Bower APRN-KENDAL documented in [facility] [place]24 Telephone encounter Note * Telephone Encounter - Alicja Robin RN - 05/16/2024 12:22 PM EDT Called and left a detailed voicemail notifying Ole GREGORY CM with [facility] of providers message. Clinic phone number was left in case he had any questions. Alicja Robin RN [facility]08-13-2024 Miscellaneous Notes* Telephone Encounter - Alicja Robin RN - 05/16/2024 12:22 PM EDT Called and left a detailed voicemail notifying Ole GREGORY CM with [facility] of providers message. Clinic phone number was left in case he had any questions. Alicja Robin RN * Telephone Encounter - Denise Alvarado APRN.QUALITY ASSURANCE PRACTICE MANAGER - 05/16/2024 8:23 AM EDT Okay for home health care plan. Okay to take medications as prescribed at discharge. If tolerating current pain medication may continue unchanged. * Telephone Encounter - Iraida Pena RN - 05/15/2024 1:15 PM EDT Ole calling from [facility] to report plan of care for patient and fpc will visit patient 1 time a week for 3 weeks. alf will work with patient on vitals. Patient was recently told to hold diuretics and blood pressure medication until 06/04 while she was in hospital. See Message below regarding medication reconciliation, Iraida Pena RN * Telephone Encounter - Tracey De Leon RN - 05/15/2024 10:07 AM EDT Ole with [facility] calls after doing medication reconcillation with following medication problems. Drug Allergy: Patient prescribed Reynolds but has allergy to Oxycodone which is nausea and vomiting. Seems ok on Reynolds. Ok to continue? Duplicate medications: Ibuprofen 200 mg and Meloxicam 15 mg Furosemide and hydrochlorothiazide Promethazine and Hydroxyzine. Tracey De Leon RN documented in this [facility] [place]08-13-2024 Telephone encounter Note * Telephone Encounter - Denise Alvarado APRN.CNS - 05/16/2024 8:23 AM EDT Okay for home health care plan. Okay to take medications as prescribed at discharge. If tolerating current pain medication may continue unchanged. [facility]08-12-2024 Telephone encounter Note* Telephone Encounter - Iraida Pena RN - 05/15/2024 1:15 PM EDT Ole calling from [facility] to report plan of care for patient and fpc will visit patient 1 time a week for 3 weeks. alf will work with patient on vitals. Patient was recently told to hold diuretics and blood pressure medication until 06/04 while she was in hospital. See Message below regarding medication reconciliation, Iraida Pena RN [facility] [place]08-12-2024 Telephone encounter Note* Telephone Encounter - Tracey De Leon RN - 05/15/2024 10:07 AM EDT Ole with [facility] calls after doing medication reconcillation with following medication problems. Drug Allergy: Patient prescribed Reynolds but has allergy to Oxycodone which is nausea and vomiting. Seems ok on Reynolds. Ok to continue? Duplicate medications: Ibuprofen 200 mg and Meloxicam 15 mg Furosemide and hydrochlorothiazide Promethazine and Hydroxyzine. Tracey De Leon RN [facility] [place]08-09-2024 Telephone encounter Note* Telephone Encounter - Sarina Adams MD - 05/12/2024 5:58 PM EDT Patient had RX to last from 04/11 to 05/11. Another provider gave her a RX filled 05/09 for 15 pills. Given at discharge from [facility] on 05/04, she filled on 05/09--this should last till 05/14. Suspect had increased pain Does have appointment 05/16 with Cole. Will approve refill of her med since has been up to date with follow ups and PDMP has been appropriate. Fill date 05/14 since she picked up the RX 05/09 got TID to last 5 days The following approved medication requests have been transmitted electronically. Requested Prescriptions Signed Prescriptions Disp Refills HYDROcodone-acetaminophen (NORCO) 5-325 mg per tablet 90 tablet 0 Sig: Take 1 tablet by mouth three times a day as needed for pain for up to 30 days. Patient should start on May 14, 2024. Authorizing Provider: SARINA ADAMS MD [facility] [place]08-09-2024 Miscellaneous Notes* Telephone Encounter - Sarina Adams MD - 05/12/2024 5:58 PM EDT Patient had RX to last from 04/11 to 05/11. Another provider gave her a RX filled 05/09 for 15 pills. Given at discharge from [facility] on 05/04, she filled on 05/09--this should last till 05/14. Suspect had increased pain Does have appointment 05/16 with Cole. Will approve refill of her med since has been up to date with follow ups and PDMP has been appropriate. Fill date 05/14 since she picked up the RX 05/09 got TID to last 5 days The following approved medication requests have been transmitted electronically. Requested Prescriptions Signed Prescriptions Disp Refills HYDROcodone-acetaminophen (NORCO) 5-325 mg per tablet 90 tablet 0 Sig: Take 1 tablet by mouth three times a day as needed for pain for up to 30 days. Patient should start on May 14, 2024. Authorizing Provider: SARINA ADAMS MD * Telephone Encounter - Iraida Pena RN - 05/12/2024 1:28 PM EDT The patient has been identified by name and date of : Yes Caregiver verified no other encounters exist for this prescription request: Yes Caregiver confirmed with patient/requestor that no other refills are due, in the near future, with this provider at this time: Yes The last office visit in the department: 02/11/2024 Does the patient have a future office visit with this provider/department: Yes 05/16/2024 Requested Prescriptions Pending Prescriptions Disp Refills HYDROcodone-acetaminophen (NORCO) 5-325 mg per tablet 90 tablet 0 Sig: Take 1 tablet by mouth three times a day as needed for pain for up to 30 days. Iraida Pena RN May 12, 2024 1:28 PM documented in this encounterK[facility] [place]08-[facility]-2024 Telephone encounter Note * Telephone Encounter - Iraida Pena RN - 05/12/2024 1:28 PM EDT The patient has been identified by name and date of : Yes Caregiver verified no other encounters exist for this prescription request: Yes Caregiver confirmed with patient/requestor that no other refills are due, in the near future, with this provider at this time: Yes The last office visit in the department: 02/11/2024 Does the patient have a future office visit with this provider/department: Yes 05/16/2024 Requested Prescriptions Pending Prescriptions Disp Refills HYDROcodone-acetaminophen (NORCO) 5-325 mg per tablet 90 tablet 0 Sig: Take 1 tablet by mouth three times a day as needed for pain for up to 30 days. Iraida Pena RN May 12, 2024 1:28 PM [facility]08-09-2024 Telephone encounter Note* Telephone Encounter - Nida Hamilton LPN - 05/12/2024 9:06 AM EDT Phoned Senthil and went over notes from Denise Alvarado CULTURIST with understanding. Printed order, and face sheet, faxed to [phone] as requested. [facility] [place]08-09-2024 Miscellaneous Notes* Telephone Encounter - Nida Hamilton LPN - 05/12/2024 9:06 AM EDT Phoned Senthil and went over notes from Denise Alvarado CULTURIST with understanding. Printed order, and face sheet, faxed to [phone] as requested. * Telephone Encounter - Denise Alvarado APRN.CNS - 05/12/2024 8:55 AM EDT She should be taking 200 mcg levothyroxine daily. Both 150 mcg and 200 mcg are listed on her discharge medication list. She should have had home health care orders at discharge which would have included nursing. Can re-enter , send to [facility] per request. * Telephone Encounter - Iraida Pena RN - 05/11/2024 3:18 PM EDT Senthil PT calling from [facility] to report plan of care for patient and physical therapy will visit patient 2 times a week for 3 weeks. Physical therapy will work with patient on functional mobility. Senthil states that on discharge paper work Levothyroxine states 150 mcg, patient has 200 mcg in house. Senthil asking for an order fpc evaluation due to patient being on oxygen, diabetes management, and medication management. Please review and Advise, Iraida Pena RN documented in [facility] Telephone encounter Note * Telephone Encounter - Denise Alvarado APRN.CNS - 05/12/2024 8:55 AM EDT She should be taking 200 mcg levothyroxine daily. Both 150 mcg and 200 mcg are listed on her discharge medication list. She should have had home health care orders at discharge which would have included nursing. Can re-enter , send to [facility] per request. [facility]08-08[facility] Telephone encounter Note* Telephone Encounter - Iraida Pena RN - 05/11/2024 3:18 PM EDT Senthil PT calling from [facility] to report plan of care for patient and physical therapy will visit patient 2 times a week for 3 weeks. Physical therapy will work with patient on functional mobility. Senthil states that on discharge paper work Levothyroxine states 150 mcg, patient has 200 mcg in house. Senthil asking for an order fpc evaluation due to patient being on oxygen, diabetes management, and medication management. Please review and Advise, Iraida Pena RN [facility]08-06-2024 Telephone encounter Note* Telephone Encounter - Mara Degroot LPN - 05/09/2024 4:20 PM EDT Attempted to contact Lucero with [facility] but no answer. Left providers message and ask to call office with any questions or concerns. [facility]08-06-2024 Miscellaneous Notes* Telephone Encounter - Mara Degroot LPN - 05/09/2024 4:20 PM EDT Attempted to contact Lucero with [facility] but no answer. Left providers message and ask to call office with any questions or concerns. * Telephone Encounter - Denise Alvarado APRN.CNS - 05/09/2024 3:32 PM EDT OK * Telephone Encounter - Kristen Bronson LPN - 05/09/2024 11:12 AM EDT Lucero with [facility] calling to get verbal orders for delay of care. There were to start care on 05-08-24 with pt but was not able to get a hold of pt. Finally reached pt and she still wants OT and PT. Asking for delay of care. Please advise Lucero with verbal order. Kristen Bronson LPN documented in this encounterK[facility]08-06-2024 Telephone encounter Note * Telephone Encounter - Denise Alvarado APRN.CNS - 05/09/2024 3:32 PM EDT OK [facility]08-[facility] Telephone encounter Note* Telephone Encounter - Kristen Bronson LPN - 05/09/2024 11:12 AM EDT Lucero with [facility] calling to get verbal orders for delay of care. There were to start care on 05-08-24 with pt but was not able to get a hold of pt. Finally reached pt and she still wants OT and PT. Asking for delay of care. Please advise Lucero with verbal order. Kristen Bronson LPN [facility]08-01-[facility]24 Telephone encounter Note* Telephone Encounter - Brooke Orlando - 05/04/2024 3:19 PM EDT Patient has been identified by name and date of : Yes Patient phones for refill(s): Requested Prescriptions Pending Prescriptions Disp Refills meloxicam (MOBIC) 15 mg tablet 30 tablet 1 Sig: Take 1 tablet by mouth once daily as needed for pain. With food. Date of last office visit in primary care: 02/11/2024 Date of next office visit in primary care: 05/12/2024 Please advise. Thank you. Brooke Orlando. [facility]08-01-2024 Miscellaneous Notes* Telephone Encounter - Brooke Orlando - 05/04/2024 3:19 PM EDT Patient has been identified by name and date of : Yes Patient phones for refill(s): Requested Prescriptions Pending Prescriptions Disp Refills meloxicam (MOBIC) 15 mg tablet 30 tablet 1 Sig: Take 1 tablet by mouth once daily as needed for pain. With food. Date of last office visit in primary care: 02/11/2024 Date of next office visit in primary care: 05/12/2024 Please advise. Thank you. Brooke Orlando. documented in this encounterK[facility]07-31-2024 Telephone encounter Note * Telephone Encounter - Fátima Henry RN - 05/03/2024 4:40 PM EDT Verbal order was given to Lucero and confirmed okay per Dr. Adams. [facility]07-31-2024 Miscellaneous Notes* Telephone Encounter - Fátima Henry RN - 05/03/2024 4:40 PM EDT Verbal order was given to Lucero and confirmed okay per Dr. Adams. * Telephone Encounter - Cole Bower APRN.CNP - 05/03/2024 4:29 PM EDT Please return call and let them know that yes, we will follow. Thanks! * Telephone Encounter - Fátima Henry RN - 05/03/2024 4:00 PM EDT Lucero from [facility] calling to see if Dr. Adams will follow pt for PT/OT. Verbal order that Dr. Adams is okay and will follow pt. If any changes, please contact Lucero back at [phone] documented in this encounterK[facility]07-31-2024 Telephone encounter Note * Telephone Encounter - Cole Bower APRN.CNP - 05/03/2024 4:29 PM EDT Please return call and let them know that yes, we will follow. Thanks! [facility]07-31-2024 Telephone encounter Note* Telephone Encounter - Fátima Henry RN - 05/03/2024 4:00 PM EDT Lucero from [facility] calling to see if Dr. Adams will follow pt for PT/OT. Verbal order that Dr. Adams is okay and will follow pt. If any changes, please contact Lucero back at [phone] [facility]07-09-2024 Telephone encounter Note* Telephone Encounter - Corina Pacheco - 04/11/2024 2:21 PM EDT Prescription Refill Information The patient has been identified by name and date of : Yes Caregiver verified no other encounters exist for this prescription request: Yes Caregiver confirmed with patient/requestor that no other refills are due, in the near future, with this provider at this time: Yes The last office visit in the department: 12-10-23 Does the patient have a future office visit with this provider/department: Yes Requested Prescriptions Pending Prescriptions Disp Refills flash glucose sensor (FREESTYLE TAYLOR 14 DAY SENSOR) kit 2 Kit 5 Sig: Use to check blood sugar 4 times daily. Please give 2 sensors per refill Corina Hinkle April 11, 2024 2:22 PM [facility]07-09-2024 Miscellaneous Notes* Telephone Encounter - Corina Pacheco - 04/11/2024 2:21 PM EDT Prescription Refill Information The patient has been identified by name and date of : Yes Caregiver verified no other encounters exist for this prescription request: Yes Caregiver confirmed with patient/requestor that no other refills are due, in the near future, with this provider at this time: Yes The last office visit in the department: 12-10-23 Does the patient have a future office visit with this provider/department: Yes Requested Prescriptions Pending Prescriptions Disp Refills flash glucose sensor (FREESTYLE TAYLOR 14 DAY SENSOR) kit 2 Kit 5 Sig: Use to check blood sugar 4 times daily. Please give 2 sensors per refill Corina Hinkle April 11, 2024 2:22 PM documented in this encounterK[facility]07-09-2024 Telephone encounter Note * Telephone Encounter - Cole Bower APRN.CNP - 04/11/2024 8:35 AM EDT [facility] All prescriptions have been APPROPRIATELY filled. No suspiciousactivity was identified. 04/11/2024 by Cole Bower APRN.KENDAL [facility]07-09-2024 Miscellaneous Notes* Telephone Encounter - Cole Bower APRN.CNP - 04/11/2024 8:35 AM EDT [facility] All prescriptions have been APPROPRIATELY filled. No suspiciousactivity was identified. 04/11/2024 by Cole Bower APRN.CNP * Telephone Encounter - Jarrod Buckley MA - 04/10/2024 10:41 AM EDT LIDIA: 02/11/2024 NOV: 05/16/2024 * Telephone Encounter - Corina Pacheco - 04/10/2024 10:31 AM EDT Samantha is calling Sarina Adams MD today with concern regarding Medication Request Disp Refills Start End HYDROcodone-acetaminophen (NORCO) 5-325 mg per tablet 90 tablet 0 03/09/2024 04/08/2024 Sig: Take 1 tablet by mouth three times a day as needed for pain for up to 30 days. Sent to pharmacy as: HYDROcodone-acetaminophen (NORCO) 5-325 mg per tablet Class: Normal [facility] [place] Patient has been identified by name and birthdate. Person calling: self Call patient at: at home [phone] (home) [phone] (cell) Was an appointment scheduled: No Closing statement: Results or non-symptom based questions: Thank you for calling [facility], your call will be returned within the next business day. Corina Hinkle documented in this encounterK[facility]07-08-2024 Telephone encounter Note * Telephone Encounter - Jaylyn Vazquez LPN - 04/10/2024 3:09 PM EDT Patient has active RXs for Trulicity & Jardiance, advised Patient to check with pharmacy. Patient has been identified by name and date of : Yes Patient phones for refill(s): Requested Prescriptions Pending Prescriptions Disp Refills dicyclomine (BENTYL) 10 mg capsule 120 capsule 5 Sig: Take 1 capsule by mouth before meals and at bedtime. for abdominal pain Date of last office visit in primary care: 04/10/2021 Date of next office visit in primary care: 05/16/2024 Please advise. Thank you. Jaylyn Vazquez LPN. [facility]07-08-2024 Miscellaneous Notes* Telephone Encounter - Jaylyn Vazquez LPN - 04/10/2024 3:09 PM EDT Patient has active RXs for Trulicity & Jardiance, advised Patient to check with pharmacy. Patient has been identified by name and date of : Yes Patient phones for refill(s): Requested Prescriptions Pending Prescriptions Disp Refills dicyclomine (BENTYL) 10 mg capsule 120 capsule 5 Sig: Take 1 capsule by mouth before meals and at bedtime. for abdominal pain Date of last office visit in primary care: 04/10/2021 Date of next office visit in primary care: 05/16/2024 Please advise. Thank you. Jaylyn Vazquez LPN. * Telephone Encounter - Corina Pacheco - 04/10/2024 10:28 AM EDT Prescription Refill Information The patient has been identified by name and date of : Yes Caregiver verified no other encounters exist for this prescription request: Yes Caregiver confirmed with patient/requestor that no other refills are due, in the near future, with this provider at this time: Yes The last office visit in the department: 02-11-24 Does the patient have a future office visit with this provider/department: Yes Requested Prescriptions Pending Prescriptions Disp Refills dulaglutide (TRULICITY) 4.5 mg/0.5 mL pen injector 6 mL 3 Sig: Inject 4.5 mg subcutaneously one time a week. Fenofibrate (LOFIBRA) 160 mg tablet 30 tablet 11 Sig: Take 1 tablet by mouth once daily. dicyclomine (BENTYL) 10 mg capsule 120 capsule 5 Sig: Take 1 capsule by mouth before meals and at bedtime. for abdominal pain Corina Hinkle April 10, 2024 10:30 AM documented in this encounterK[facility]07-08-2024 Telephone encounter Note * Telephone Encounter - Jarrod Buckley MA - 04/10/2024 10:41 AM EDT LIDIA: 02/11/2024 NOV: 05/16/2024 [facility]07-08-2024 Telephone encounter Note* Telephone Encounter - Corina Pacheco - 04/10/2024 10:31 AM EDT Samantha is calling Sarina Adams MD today with concern regarding Medication Request Disp Refills Start End HYDROcodone-acetaminophen (NORCO) 5-325 mg per tablet 90 tablet 0 03/09/2024 04/08/2024 Sig: Take 1 tablet by mouth three times a day as needed for pain for up to 30 days. Sent to pharmacy as: HYDROcodone-acetaminophen (NORCO) 5-325 mg per tablet Class: Normal [facility] [place] Patient has been identified by name and birthdate. Person calling: self Call patient at: at home [phone] (home) [phone] (cell) Was an appointment scheduled: No Closing statement: Results or non-symptom based questions: Thank you for calling [facility], your call will be returned within the next business day. Corina Hinkle [facility]07-08-2024 Telephone encounter Note* Telephone Encounter - Corina Pacheco - 04/10/2024 10:28 AM EDT Prescription Refill Information The patient has been identified by name and date of : Yes Caregiver verified no other encounters exist for this prescription request: Yes Caregiver confirmed with patient/requestor that no other refills are due, in the near future, with this provider at this time: Yes The last office visit in the department: 02-11-24 Does the patient have a future office visit with this provider/department: Yes Requested Prescriptions Pending Prescriptions Disp Refills dulaglutide (TRULICITY) 4.5 mg/0.5 mL pen injector 6 mL 3 Sig: Inject 4.5 mg subcutaneously one time a week. Fenofibrate (LOFIBRA) 160 mg tablet 30 tablet 11 Sig: Take 1 tablet by mouth once daily. dicyclomine (BENTYL) 10 mg capsule 120 capsule 5 Sig: Take 1 capsule by mouth before meals and at bedtime. for abdominal pain Corina Hinkle April 10, 2024 10:30 AM [facility]06-28-2024 Telephone encounter Note* Telephone Encounter - Carmina Sylvester RPh - 03/31/2024 12:29 PM EDT Called patient and completed schedule visit [facility] Work Phone: 1(525) 271-880806-28-2024 Miscellaneous Notes* Telephone Encounter - Carmina Sylvester RPh - 03/31/2024 12:29 PM EDT Called patient and completed schedule visit * Telephone Encounter - Katherin Chowdhury - 03/31/2024 9:28 AM EDT Patient states she was in the restroom and missed the call,will await call back from Froylan. * Telephone Encounter - Carmina Sylvester RPh - 03/31/2024 9:13 AM EDT Called patient for scheduled phone follow up visit; unable to reach after multiple attempts. Unableto leave , mailbox full. Will attempt outreach to reschedule at later time. Carmina Sylvester PharmD, JAVIER Primary Care Clinical Hose Tender documented in this encounterK[facility]06-28-2024 Telephone encounter Note * Telephone Encounter - Carmina Sylvester RPh - 03/31/2024 12:27 PM EDT Patient's request for medication is as follows: Requested Prescriptions Pending Prescriptions Disp Refills Fenofibrate (LOFIBRA) 160 mg tablet 30 tablet 11 Sig: Take 1 tablet by mouth once daily. Prescription(s) as above. Please process accordingly. Carmina Sylvester PharmD, JAVIER Primary Care Clinical Hose Tender [facility]06-28-2024 Miscellaneous Notes* Telephone Encounter - Carmina Sylvester RPh - 03/31/2024 12:27 PM EDT Patient's request for medication is as follows: Requested Prescriptions Pending Prescriptions Disp Refills Fenofibrate (LOFIBRA) 160 mg tablet 30 tablet 11 Sig: Take 1 tablet by mouth once daily. Prescription(s) as above. Please process accordingly. Carmina Sylvester, PharmD, BCACP Primary Care Clinical Hose Tender documented in this encounterK[facility]06-28-2024 History of Present illness Narrative* Carmina Sylvester RPh - 03/31/2024 12:00 PM EDT Primary Care Pharmacy Visit CC (Reason for Consult): (E11.9) Type 2 diabetes (HCC) (primary encounter diagnosis) (E11.3319) 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) Goal(s): A1c <7% Last Collaborating Provider Visit: 02/11/24 with Cole Bower APRN, ADVISORY SOFTWARE ENGINEER Samantha Romero is a 58 year old female presenting for follow up visit telephone call. Patient consents to pharmacy collaborative practice agreement. Last Pharmacy Visit: 02/24/24 - increased Tresiba to 78 units once daily, increased Novolog to 22 units + SSI #2 with meals Interim Events 02/25/24 - patient requested pharmacy call [facility] to confirm Novolog sliding scale directions, Rx resentwith sliding scale directions HPI: Reports doing okay recently Needs refill on Trulicity, fenofibrate Has not had any trouble getting Trulicity from the pharmacy Sometimes takes Novolog after a meal Current DM Medications: Jardiance 25 mg once daily Trulicity 4.5 mg once weekly on Sundays Tresiba 78 units once daily at bedtime Novolog 22 units + sliding scale #2 with meals three times a day - Previously Trialed DM Meds: Metformin - diarrhea (even on ER) Diet Denies any recent changes May only eat 1-2x/day GLYCEMIC CONTROL: Glucometer present at visit: Yes Free Style Taylor reader Hypoglycemia: No - denies symptoms, has not had a low in a long time, no low alerts CGM Data Date range Overall AVG 12a-6a 6a-12p 12p-6p 6p-12a TIME IN RANGE 7 day 222 246 240 200 213 ABOVE 70% 14 day 274 350 282 223 253 IN (80-180) 30% 30 day BELOW 90 day Past medical history reviewed. ALLERGIES Allergen Reactions Metformin Diarrhea Diarrhea every time takes, even with ER dose Oxycodone GI Upset Percocet [Oxycodone* GI Upset and off balance Current Outpatient Medications Medication Sig Dispense Refill dulaglutide (TRULICITY) 4.5 mg/0.5 mL pen injector Inject 4.5 mg subcutaneously one time a week. 6 mL 3 insulin degludec (TRESIBA FLEXTOUCH U-200) 200 unit/mL (3 mL) injection Inject 86 Units subcutaneously daily at bedtime. 18 mL 5 HYDROcodone-acetaminophen (NORCO) 5-325 mg per tablet Take 1 tablet by mouth three times a day as needed for pain for up to 30 days. 90 tablet 0 insulin aspart U-100 (NOVOLOG) 100 unit/mL (3 mL) INJECT 22 UNITS SUBCUTANEOUSLY WITH MEALS THREE TIMES A DAY PLUS SLIDING SCALE #2 (add 2 units for every 50 points above 150 mg/dl) BASED ON PRE-MEAL BLOOD SUGAR (MAX: 96 UNITS PER DAY) 30 mL 11 rosuvastatin (CRESTOR) 10 mg tablet Take 1 tablet by mouth daily at bedtime. 30 tablet 11 gabapentin (NEURONTIN) 600 mg tablet Take 1 tablet by mouth three times a day for 90 days. 90 tablet 2 furosemide (LASIX) 40 mg tablet Take 1 tablet by mouth once daily as needed (for swelling). 30 tablet 3 hydrOXYzine HCl (ATARAX) 25 mg tablet Take 1-2 tablets by mouth at bedtime as needed. 30 tablet 3 blood sugar diagnostic (FREESTYLE LITE STRIPS) test strip Test blood sugar(s) 4 times daily. Dx: Other DM Code E11.40 Insulin: Yes 50 Strip 3 empagliflozin (JARDIANCE) 25 mg tablet Take 1 tablet by mouth daily with breakfast. 90 tablet 3 hydroCHLOROthiazide 50 mg tablet Take 1 tablet by mouth once daily. 30 tablet 2 meloxicam (MOBIC) 15 mg tablet Take 1 tablet by mouth once daily as needed for pain. With food. 30 tablet 1 Insulin [place], Disposable, (DROPLET PEN NEEDLE) 31 gauge x 3/16 use 1 PEN NEEDLE to inject MEDICATION subcutaneously four times a day 200 Each 2 fluticasone (FLONASE) 50 mcg/actuation nasal spray Use 1-2 Sprays in each nostril once daily as needed. 1 Each 11 PEG 400-propylene glycol (SYSTANE ULTRA) 0.4-0.3 % ophthalmic solution Use 1 Drop in both eyes fourtimes daily. (Patient taking differently: Use 1 Drop in both eyes four times daily. Uses three times daily) 15 mL 4 peg 400-propylene glycol (SYSTANE GEL) 0.4-0.3 % drpg Use 1 Drop in both eyes daily at bedtime. 10 mL 2 omeprazole (PRILOSEC) 40 mg capsule take 1 capsule by mouth once daily 30 capsule 5 potassium chloride SR (MICRO-K) 10 mEq CR capsule Take 1 capsule by mouth once daily. 7 capsule 0 Cholecalciferol, Vitamin D3, 125 mcg (5,000 unit) cap Take 1 capsule by mouth once daily. 90 capsule 2 flash glucose sensor (FREESTYLE TAYLOR 14 DAY SENSOR) kit Use to check blood sugar 4 times daily. Please give 2 sensors per refill 2 Kit 5 blood sugar diagnostic (BLOOD GLUCOSE TEST) test strip Test blood sugar(s) 4 times daily. Dx: OtherDM Code E11.40 Insulin: Yes 50 Strip 11 levothyroxine (SYNTHROID) 200 mcg tablet Take 1 tablet by mouth daily before breakfast. 90 tablet 3 blood sugar diagnostic (BLOOD GLUCOSE TEST) test strip Test blood sugar(s) 4 times daily. Dx: Type 2 DM - Controlled E11.9 Insulin: Yes 200 Strip 11 OXYGEN, HOME THERAPY, Inhale as instructed as directed. Uses at 2 l/m via nasal cannula during the day and 4 l/m at night hydrocortisone 2.5 % cream Apply 1 application to affected area twice daily. Location: hands and chest (Patient taking differently: Apply 1 application to affected area two times a day. Location: hands and chest Uses as needed) 20 g 0 Blood-Glucose Meter monitoring kit Check sugars daily and as needed (Freestyle Lite is what she hashad) 1 Each 0 lisinopril 2.5 mg tablet Take 1 tablet by mouth once daily. 90 tablet 3 Lancets lancets Test blood sugar(s) 4 times daily. Dx: E11.9 Insulin: Yes (Patient taking differently: Test blood sugar(s) 4 times daily. Dx: E11.9 Insulin: Yes Uses as needed) 200 Each 11 Fenofibrate (LOFIBRA) 160 mg tablet Take 1 tablet by mouth once daily. 30 tablet 11 clotrimazole-betamethasone (LOTRISONE) cream Apply 1 application to affected area twice daily. X 2 weeks. (Patient taking differently: Apply 1 application to affected area two times a day. X 2 weeks. Uses as needed) 45 g 0 dicyclomine (BENTYL) 10 mg capsule Take 1 capsule by mouth before meals and at bedtime. for abdominal pain 120 capsule 5 Miscellaneous Medical Supply (BLOOD PRESSURE CUFF) 1 Each as needed. Blood pressure Monitor and Cuff, use as directed. Dx: I10 Hypertension 1 Each 0 flash glucose scanning reader (HeyLets TAYLOR 14 DAY READER) Use to check blood sugar 4 times daily 1 Each 0 estradiol (ESTRACE) 0.01 % (0.1 mg/gram) vaginal cream Use 3 g vaginally two times a week. 42.5 g 6 Current Facility-Administered Medications Medication Dose Route Frequency Provider Last Rate Last Admin sodium chloride 0.9 % (flush) 10 mL (BD POSIFLUSH) 10 mL INTRAVENOUS DIRECTED PRN Ramakrishna Brewster MD sodium chloride 0.9 % (flush) 10 mL (BD POSIFLUSH) 10 mL INTRAVENOUS DIRECTED PRN Cole Bower APRN.ADVISORY SOFTWARE ENGINEER Pill bottles are not present. Adherence: denies missed doses. Rx coverage: Payor: [facility] MEDICAID / Plan: [facility] MEDICAID / Product Type: Medicaid / Medications affordable? Yes PHARMACOTHERAPY PREVENTATIVE MEDS: On ENID/ARB: Yes On Statin: Yes On ASA: No EXAM: LMP 04/27/2016 Last 3 Encounter BP Readings: Date: BP: 02/21/2024 99/52 02/11/2024 120/60 01/03/2024 106/60 Wt: 102.5 kg (226 lb) BMI: 38.79 kg/(m^2) LABS: Lab Results Component Value Date HBA1C 10.7 02/02/2024 HBA1C 12.2 10/11/2023 HBA1C 12.6 06/28/2023 HBA1C 11.0 10/21/2022 HBA1C 8.3 04/10/2021 HBA1C 10.3 10/25/2020 HBA1C 8.5 04/10/2020 Glucose 317 02/02/2024 BUN 38 02/02/2024 Creatinine 1.13 02/02/2024 Sodium 138 02/02/2024 Potassium 4.2 02/02/2024 Chloride 100 02/02/2024 CO2 32 02/02/2024 Protein, Total 7.2 02/02/2024 Albumin 4.0 02/02/2024 Calcium 10.1 02/02/2024 Alkaline Phosphatase 79 02/02/2024 Bilirubin, Total 0.3 02/02/2024 AST 18 02/02/2024 ALT 21 02/02/2024 Lab Results Component Value Date CHOL 223 03/26/2023 CHOL 190 04/10/2021 CHOL 172 01/16/2021 LDL 03/26/2023 Comment: Unable to calculate due to increased Triglycerides. A Direct LDL Cholesterol measurement will not be performed. If clinically indicated, a fasting Basic Lipid Panel (LIPB) may be ordered. LDL 04/10/2021 Unable to calculate due to increased Triglycerides. A Direct LDL Cholesterol measurement will not be performed. If clinically indicated, a fasting Basic Lipid Panel (LIPB) may be ordered. LDL 01/16/2021 Unable to calculate due to increased Triglycerides. See LDL-Chol, Direct. HDL 39 03/26/2023 HDL 34 04/10/2021 HDL 33 01/16/2021 TG 521 03/26/2023 TG 596 04/10/2021 TG 412 01/16/2021 Albumin/Creat Ratio (mg/g) Date Value 10/11/2023 424 (H) eGFR-All Other Races (.) Date Value 05/22/2021 48 Estimated Glomerular Filtration Rate (mL/min/1.73m ) Date Value 02/02/2024 57 ASSESSMENT/PLAN: 1. Type 2 diabetes (HCC) - ICD9: 250.00, ICD10: E11.9 (primary diagnosis) - Improving control - Increase Tresiba 86 units once daily - Continue all other medications as prescribed - discussed importance of taking mealtime insulin before meals - Statin prescribed - rosuvastatin - Blood glucose monitoring on a continuous glucose monitoring schedule - Counseled on healthy diet and regular exercise - Follow up in 2 months, sooner should any other issues arise. Follow Up: Next PCP visit: 05/16/24 Next PharmD visit: 06/02/24 Carmina Sylvester, [place], BCACP Primary Care Clinical Hose Tender documented in this encounterK[facility]06-28-2024 Telephone encounter Note * Telephone Encounter - Katherin Chowdhury - 03/31/2024 9:28 AM EDT Patient states she was in the restroom and missed the call,will await call back from Froylan. [facility] [place] Telephone encounter Note* Telephone Encounter - Carmina Sylvester RPh - 03/31/2024 9:13 AM EDT Called patient for scheduled phone follow up visit; unable to reach after multiple attempts. Unableto leave , mailbox full. Will attempt outreach to reschedule at later time. Carmina Sylvester, PharmD, BCACP Primary Care Clinical Hose Tender [facility]06-06-2024 Telephone encounter Note* Telephone Encounter - Sarina Adams MD - 03/09/2024 4:26 PM EDT Looks like patient needed to stay on TID per Cole's last progress note and Medication List. Patient can discuss with Cole at follow up appointment if/when can try to decrease to BID again. The following approved medication requests have been transmitted electronically. Requested Prescriptions Signed Prescriptions Disp Refills HYDROcodone-acetaminophen (NORCO) 5-325 mg per tablet 90 tablet 0 Sig: Take 1 tablet by mouth three times a day as needed for pain for up to 30 days. Authorizing Provider: SARINA ADAMS MD [facility]06-06-2024 Miscellaneous Notes* Telephone Encounter - Sarina Adams MD - 03/09/2024 4:26 PM EDT Looks like patient needed to stay on TID per Cole's last progress note and Medication List. Patient can discuss with Cole at follow up appointment if/when can try to decrease to BID again. The following approved medication requests have been transmitted electronically. Requested Prescriptions Signed Prescriptions Disp Refills HYDROcodone-acetaminophen (NORCO) 5-325 mg per tablet 90 tablet 0 Sig: Take 1 tablet by mouth three times a day as needed for pain for up to 30 days. Authorizing Provider: SARINA ADAMS MD * Telephone Encounter - Corina Pacheco - 03/08/2024 2:28 PM EDT Patient has been identified by name and date of : Yes, Provider Dr. Adams Date 03-08-24 Time 2:29 pm Patient phones for refill(s): Requested Prescriptions Pending Prescriptions Disp Refills HYDROcodone-acetaminophen (NORCO) 5-325 mg per tablet Sig: Take 1 tablet by mouth three times a day as needed for pain for up to 30 days. Date of last office visit in primary care: 02/11/2024 Date of next office visit in primary care: 05/16/2024 Please advise. Thank you. Corina Hinkle. documented in [facility] Telephone encounter Note * Telephone Encounter - Corina Pacheco - 03/08/2024 2:28 PM EDT Patient has been identified by name and date of : Yes, Provider Dr. Adams Date 03-08-24 Time 2:29 pm Patient phones for refill(s): Requested Prescriptions Pending Prescriptions Disp Refills HYDROcodone-acetaminophen (NORCO) 5-325 mg per tablet Sig: Take 1 tablet by mouth three times a day as needed for pain for up to 30 days. Date of last office visit in primary care: 02/11/2024 Date of next office visit in primary care: 05/16/2024 Please advise. Thank you. Corina Hinkle. [facility]06-04-2024 History of Present illness Narrative* Click, Jacquelin Manning APRN.ADVISORY SOFTWARE ENGINEER - 03/07/2024 2:00 PM EDT Patient: Samantha Romero PCP: Sarina Adams MD CC: follow-up HPI: Samantha Romero 58 year old female former smoker, 30 pack years (quitting 2013) with PMH significant for HTN, DM, hypothyroidism, HTN, myasthenia gravis, and history of Covid pna 07/2021. Required HFNC, dex/remdesivir/baricitinib and 4L supplemental oxygen at discharge. Last office visit 12/01/2023. Current maintenance therapy PRN Albuterol ordered but patient doesn't have. Following her last visit, she had oximetry with ambulation but did not have spirometry or DLCO completed. Today, patient reports symptoms are unchanged. Denies dyspnea at rest but will be SOB with exertion. Has rare cough with yellowish sputum. No hemoptysis. No wheezing. Denies fevers, chills, night sweats, or unintended weight loss. No recent hospitalizations or ED visits or upper respiratory infections. She reports feeling tired and weak at baseline. Denies seasonal allergies. She was seen by [facility] in November with LDCT. Has lung nodules and will follow-up annually. Currently wearing 2L NC during the day and 4L at night. DME: [employer] PAST MEDICAL HISTORY Diagnosis Date Chronic hypoxemic respiratory failure (HCC) COVID-19 07/06/2021 HTN (hypertension) Hyperlipidemia 04/05/2014 Hypothyroid 04/19/2014 Kidney stone on left side 04/12/2014 Myasthenia gravis (HCC) OA (osteoarthritis) of hip, bilateral 04/04/2014 Type II or unspecified type diabetes mellitus without mention of complication, uncontrolled 04/05/2014 Allergies: Metformin Diarrhea Comment:Diarrhea every time takes, even with ER dose Oxycodone GI Upset Percocet [Oxycodone* GI Upset Comment:and off balance insulin aspart U-100 (NOVOLOG) 100 unit/mL (3 mL)^INJECT 22 UNITS SUBCUTANEOUSLY WITH MEALS THREE TIMES A DAY PLUS SLIDING SCALE #2 (add 2 units for every 50 points above 150 mg/dl) BASED ON PRE-MEAL BLOOD SUGAR (MAX: 96 UNITS PER DAY)^Disp: 30 mL^Rfl: 11 insulin degludec (TRESIBA FLEXTOUCH U-100) 100 unit/mL (3 mL) injection pen^Inject 78 Units subcutaneously daily at bedtime.^Disp: 60 mL^Rfl: 4 rosuvastatin (CRESTOR) 10 mg tablet^Take 1 tablet by mouth daily at bedtime.^Disp: 30 tablet^Rfl: 11 HYDROcodone-acetaminophen (NORCO) 5-325 mg per tablet^Take 1 tablet by mouth three times a day as needed for pain for up to 30 days.^Disp: ^Rfl: gabapentin (NEURONTIN) 600 mg tablet^Take 1 tablet by mouth three times a day for 90 days.^Disp: 90tablet^Rfl: 2 furosemide (LASIX) 40 mg tablet^Take 1 tablet by mouth once daily as needed (for swelling).^Disp: 30 tablet^Rfl: 3 hydrOXYzine HCl (ATARAX) 25 mg tablet^Take 1-2 tablets by mouth at bedtime as needed.^Disp: 30 tablet^Rfl: 3 blood sugar diagnostic (FREESTYLE LITE STRIPS) test strip^Test blood sugar(s) 4 times daily. Dx: Other DM Code E11.40 Insulin: Yes^Disp: 50 Strip^Rfl: 3 empagliflozin (JARDIANCE) 25 mg tablet^Take 1 tablet by mouth daily with breakfast.^Disp: 90 tablet^Rfl: 3 hydroCHLOROthiazide 50 mg tablet^Take 1 tablet by mouth once daily.^Disp: 30 tablet^Rfl: 2 meloxicam (MOBIC) 15 mg tablet^Take 1 tablet by mouth once daily as needed for pain. With food.^Disp: 30 tablet^Rfl: 1 Insulin [place], Disposable, (DROPLET PEN NEEDLE) 31 gauge x 3/16^use 1 PEN NEEDLE to inject MEDICATION subcutaneously four times a day^Disp: 200 Each^Rfl: 2 dulaglutide (TRULICITY) 4.5 mg/0.5 mL pen injector^Inject 4.5 mg subcutaneously one time a week.^Disp: 4 Each^Rfl: 2 fluticasone (FLONASE) 50 mcg/actuation nasal spray^Use 1-2 Sprays in each nostril once daily as needed.^Disp: 1 Each^Rfl: 11 PEG 400-propylene glycol (SYSTANE ULTRA) 0.4-0.3 % ophthalmic solution^Use 1 Drop in both eyes fourtimes daily.^Disp: 15 mL^Rfl: 4 (Patient taking differently: Use 1 Drop in both eyes four times daily. Uses three times daily) peg 400-propylene glycol (SYSTANE GEL) 0.4-0.3 % drpg^Use 1 Drop in both eyes daily at bedtime.^Disp: 10 mL^Rfl: 2 omeprazole (PRILOSEC) 40 mg capsule^take 1 capsule by mouth once daily^Disp: 30 capsule^Rfl: 5 potassium chloride SR (MICRO-K) 10 mEq CR capsule^Take 1 capsule by mouth once daily.^Disp: 7 capsule^Rfl: 0 Cholecalciferol, Vitamin D3, 125 mcg (5,000 unit) cap^Take 1 capsule by mouth once daily.^Disp: 90 capsule^Rfl: 2 flash glucose sensor (FREESTYLE TAYLOR 14 DAY SENSOR) kit^Use to check blood sugar 4 times daily. Please give 2 sensors per refill^Disp: 2 Kit^Rfl: 5 blood sugar diagnostic (BLOOD GLUCOSE TEST) test strip^Test blood sugar(s) 4 times daily. Dx: OtherDM Code E11.40 Insulin: Yes^Disp: 50 Strip^Rfl: 11 levothyroxine (SYNTHROID) 200 mcg tablet^Take 1 tablet by mouth daily before breakfast.^Disp: 90 tablet^Rfl: 3 blood sugar diagnostic (BLOOD GLUCOSE TEST) test strip^Test blood sugar(s) 4 times daily. Dx: Type 2 DM - Controlled E11.9 Insulin: Yes^Disp: 200 Strip^Rfl: 11 OXYGEN, HOME THERAPY,^Inhale as instructed as directed. Uses at 2 l/m via nasal cannula during the day and 4 l/m at night^Disp: ^Rfl: hydrocortisone 2.5 % cream^Apply 1 application to affected area twice daily. Location: hands and chest^Disp: 20 g^Rfl: 0 (Patient taking differently: Apply 1 application to affected area two times a day. Location: hands and chest Uses as needed) Blood-Glucose Meter monitoring kit^Check sugars daily and as needed (Freestyle Lite is what she hashad)^Disp: 1 Each^Rfl: 0 lisinopril 2.5 mg tablet^Take 1 tablet by mouth once daily.^Disp: 90 tablet^Rfl: 3 Lancets lancets^Test blood sugar(s) 4 times daily. Dx: E11.9 Insulin: Yes^Disp: 200 Each^Rfl: 11 (Patient taking differently: Test blood sugar(s) 4 times daily. Dx: E11.9 Insulin: Yes Uses as needed) Fenofibrate (LOFIBRA) 160 mg tablet^Take 1 tablet by mouth once daily.^Disp: 30 tablet^Rfl: 11 clotrimazole-betamethasone (LOTRISONE) cream^Apply 1 application to affected area twice daily. X 2 weeks.^Disp: 45 g^Rfl: 0 (Patient taking differently: Apply 1 application to affected area two timesa day. X 2 weeks. Uses as needed) dicyclomine (BENTYL) 10 mg capsule^Take 1 capsule by mouth before meals and at bedtime. for abdominal pain^Disp: 120 capsule^Rfl: 5 Miscellaneous Medical Supply (BLOOD PRESSURE CUFF)^1 Each as needed. Blood pressure Monitor and Cuff, use as directed. Dx: I10 Hypertension^Disp: 1 Each^Rfl: 0 flash glucose scanning reader (HeyLets TAYLOR 14 DAY READER)^Use to check blood sugar 4 times daily^Disp: 1 Each^Rfl: 0 estradiol (ESTRACE) 0.01 % (0.1 mg/gram) vaginal cream^Use 3 g vaginally two times a week.^Disp: 42.5 g^Rfl: 6 Social History Tobacco Use Smoking status: Former Packs/day: 1.00 Years: 30.00 Additional pack years: 0.00 Total pack years: 30.00 Types: Cigarettes Quit date: 11/04/2013 Years since quittin.3 Smokeless tobacco: Never Vaping Use Vaping Use: Never used Substance Use Topics Alcohol use: Not Currently Comment: wine cool every once in a while Drug use: Not Currently Types: Marijuana Family History Problem Relation Age of Onset Diabetes Mother Cervical Cancer Sister Diabetes Brother Cancer Maternal Grandmother Stomach CA Breast Cancer Maternal Aunt 50's PAST SURGICAL HISTORY Procedure Laterality Date ESWL 04/25/14 kidney stones ESWL 05/16/14 kidney stones. PAST SURGICAL HISTORY OF c-sections x 2 PAST SURGICAL HISTORY OF appendectomy PAST SURGICAL HISTORY OF tubal ligation REMV CATARACT EXTRACAP,INSERT LENS Left 06/12/2021 Monofocal IOL 17.5 D XCAPSL CTRC RMVL INSJ IO LENS PROSTH W/O ECP Right 05/29/2021 I reviewed the past medical history, family history, social history and surgical history with changes noted above and updated in EMR. IMMUNIZATIONS Prevnar - xx Pneumovax - 2013 Influenza - xx COVID-19 - xx ROS: All other systems reviewed as negative except for what is noted in HPI and review of systems. PHYSICAL EXAMINATION: BP (P) 110/70 Pulse (P) 76 Resp (P) 15 Wt 102.5 kg (226 lb) LMP 04/27/2016 SpO2 (P) 92% BMI 38.79 kg/m Gen: No acute distress. Cooperative with examination. HEENT: Normocephalic. Sclera, conjunctiva clear. Oral hygeine good. No thrush. Resp: No stridor, accessory respiratory muscle use, supra-sternal or intercostal retractions. No wheezes, crackles. CV: Regular rythm. Heart tones normal. Radial pulses normal. Ext: Warm and well perfused. No clubbing, cyanosis, edema. Skin: No rash, ecchymoses. Neuro: Mental status normal. Affect normal. No tremor. DATA: Overnight oximetry on RA 11/17/2022: Total recording time 8 hours 22 minutes SPO2 less than or equal to 88% 196 minutes Lowest SPO2 73% Overnight oximetry on 2 L 10/14/2022: Total recording time 10 hours 83 minutes SPO2 less than or equal to 88% 2.7 minutes SPO2 less than or equal to 89% 4.3 minutes Lowest SPO2 83% Oximetry, 07/21/2022 O2 Device O2 Adapter NC O2 Flow SpO2% HR Activity Ft Walked (ft) Time (min) Avg Speed (MPH) R/A 95 83 Resting R/A 88 89 Walking, usual pace 450 3 1.7 NC 2 95 86 Resting NC 2 94 100 Walking, usual pace [address]: 02/02/2024 RESULT: Are nodules present? Yes, 1-5 nodules If No, go to IMPRESSION. If yes, proceed with characterization of the FIVE largest nodules. Nodule 1: This Solid nodule is located in the Right Lower Lobe on slice number 130 with an average diameter of 3.8 mm (4.7 mm x 2.8 mm). Nodule 2: This Solid nodule is located in the Left Upper Lobe on slice number 51 with an average diameter of 3.8 mm (4.5 mm x 3.1 mm). Nodule 3: This Calcified nodule is located in the Right Lower Lobe on slice number 137 with an average diameter of 10.0 mm (11.5 mm x 8.4 mm). If this is an ANNUAL LDCT for [facility], please ensure nodule number is the same as in the prior evaluation. Other lung nodule comments: None Other findings: Severe diffuse bronchial wall thickening compatible with airway inflammation. Mild bronchiectasis with associated patchy peribronchial and peripheral groundglass opacities in both lungs with mid and lower lung zone predominance. Stable thin-walled 3.6 cm cyst in the left lower lobe (image 114, Agfa series 7). Borderline dilatation of the ascending aorta which measures 3.9 cm in its mid segment. Common origin of innominate artery and the left common carotid artery from the aortic arch. The arch and descending aorta are normal in caliber. Circumferential small to medium-sized pericardial effusion is unchanged from the previous scan. Mild splenomegaly. Innumerable tiny calcified granulomas in the spleen. Additional calcified lymph nodes in the chest and prominent calcified granulomas in the right lung are related to remote granulomatous infection. Emphysema: None, Not reported, Not reported Coronary Artery Calcifications: Circumflex None; Left Anterior Descending None; Right Coronary None ASSESSMENT/PLAN: 1. Post-COVID chronic dyspnea - ICD9: 786.09, 139.8, ICD10: R06.09, U09.9 (primary diagnosis) - s/p Covid infection 07/2021 - on 2L NC during the day and 4L at night - patient to schedule PFT ordered at last visit 2. Former smoker - ICD9: V15.82, ICD10: Z87.891 - quit 2013 - enrolled in [facility] program, CT done February 2024 - follow-up annually 3. Chronic hypoxemic respiratory failure (HCC) - ICD9: 518.83, 799.02, ICD10: J96.11 - on 2L NC during the day and 4L at night 4. Obesity, Class II, BMI 35-39.9 - ICD9: 278.00, ICD10: E66.9 - BMI 38 - currently down 12lbs since LIDIA - encouraged continued weight loss Portions of this documentation were copied and pasted from previous office visit notes in order to provide a cohesive continuity of the history. The note has been reviewed and edited and updated as necessary. Jacquelin Valdez APRN.ADVISORY SOFTWARE ENGINEER Associated attestation - Brooke Be PA-C - 03/07/2024 4:34 PM EDT I have personally performed a face to face assessment of the patient and have reviewed the BINA note. My fontanez findings include: Exam is as documented. Assessment/Plan discussed and outlined above. Other additions or changes: As edited Signature: Brooke Be Date: 03/07/2024 Time: 4:34 PM documented in this [facility] Telephone encounter Note * Telephone Encounter - Maylin Delaney LPN - 03/06/2024 8:38 AM EDT Fax approval rec'd from [facility]. The insulin degludec was approved from 03/03/25 to 03/02/25. Pharmacy notified. [facility]06-03-2024 Miscellaneous Notes* Telephone Encounter - Maylin Delaney LPN - 03/06/2024 8:38 AM EDT Fax approval rec'd from [facility]. The insulin degludec was approved from 03/03/25 to 03/02/25. Pharmacy notified. * Telephone Encounter - Maylin Delaney LPN - 03/03/2024 3:17 PM EDT Called the pharmacy regarding the triseba u100 for 78 units nightly for 24 ML (30 day) Pharmacy reports rx is not going through for any reason. [facility]. Completed this over the phone. They will review and fax response urgently. This call reference number is [id number] documented in this encounterK[facility]05-31-2024 Telephone encounter Note * Telephone Encounter - Maylin Delaney LPN - 03/03/2024 3:17 PM EDT Called the pharmacy regarding the triseba u100 for 78 units nightly for 24 ML (30 day) Pharmacy reports rx is not going through for any reason. Called [facility] to review the PA. Completed this over the phone. They will review and fax response urgently. This call reference number is [id number] [facility]05-30-2024 Telephone encounter Note* Telephone Encounter - Maylin Delaney LPN - 03/02/2024 8:38 AM EDT This PA was reviewed and [facility] canceled the PA. They note that the brand name is covered. I gavethem this info that the dose was increased. [facility]05-30-2024 Miscellaneous Notes* Telephone Encounter - Maylin Delaney LPN - 03/02/2024 8:38 AM EDT This PA was reviewed and [facility] canceled the PA. They note that the brand name is covered. I gavethem this info that the dose was increased. * Telephone Encounter - Maylin Delaney LPN - 02/29/2024 4:05 PM EDT Did rec'd and complete electronic PA for the tresiba. Info given that this was a dose/units change from 70 units nightly to 78 units nightly * Telephone Encounter - Maylin Delaney LPN - 02/29/2024 2:09 PM EDT Per dispense report tresiba was filled 12/10/23 for an 85 day supply so qty is too soon to fill today. This should go through by March. This was just increased 02/24/24. * Telephone Encounter - Maylin Delaney LPN - 02/29/2024 1:02 PM EDT Called pharmacy about PA rec'd from [facility] for the tresiba. [facility] report qty for 30 days would be 24 ML trying to complete PA electronic PA. documented in this encounterK[facility]05-28-2024 Telephone encounter Note * Telephone Encounter - Maylin Delaney LPN - 02/29/2024 4:05 PM EDT Did rec'd and complete electronic PA for the tresiba. Info given that this was a dose/units change from 70 units nightly to 78 units nightly [facility]05-28-2024 Telephone encounter Note* Telephone Encounter - Maylin Delaney LPN - 02/29/2024 2:09 PM EDT Per dispense report tresiba was filled 12/10/23 for an 85 day supply so qty is too soon to fill today. This should go through by March. This was just increased 02/24/24. [facility]05-28-2024 Telephone encounter Note* Telephone Encounter - Maylin Delaney LPN - 02/29/2024 1:02 PM EDT Called pharmacy about PA rec'd from [facility] for the tresiba. [facility] report qty for 30 days would be 24 ML trying to complete PA electronic PA. [facility]05-24-2024 Telephone encounter Note* Telephone Encounter - Carmina Sylvester RP - 02/25/2024 3:48 PM EDT Sent updated Rx with sliding scale instructions to [facility]. Patient's request for medication is as follows: Requested Prescriptions Signed Prescriptions Disp Refills insulin aspart U-100 (NOVOLOG) 100 unit/mL (3 mL) 30 mL 11 Sig: INJECT 22 UNITS SUBCUTANEOUSLY WITH MEALS THREE TIMES A DAY PLUS SLIDING SCALE #2 (add 2 unitsfor every 50 points above 150 mg/dl) BASED ON PRE-MEAL BLOOD SUGAR (MAX: 96 UNITS PER DAY) Authorizing Provider: SARINA ADAMS Ordering User: CARMINA SYLVESTER Prescription(s) as above. Carmina ySlvester PharmD Primary Care Clinical Hose Tender [facility]05-24-2024 Miscellaneous Notes* Telephone Encounter - Carmina Sylvester RP - 02/25/2024 3:48 PM EDT Sent updated Rx with sliding scale instructions to [facility]. Patient's request for medication is as follows: Requested Prescriptions Signed Prescriptions Disp Refills insulin aspart U-100 (NOVOLOG) 100 unit/mL (3 mL) 30 mL 11 Sig: INJECT 22 UNITS SUBCUTANEOUSLY WITH MEALS THREE TIMES A DAY PLUS SLIDING SCALE #2 (add 2 unitsfor every 50 points above 150 mg/dl) BASED ON PRE-MEAL BLOOD SUGAR (MAX: 96 UNITS PER DAY) Authorizing Provider: SARINA ADAMS Ordering User: CARMINA SYLVESTER Prescription(s) as above. Carmina Sylvester PharmD Primary Care Clinical Hose Tender * Telephone Encounter - Katherin Chowdhury - 02/25/2024 3:28 PM EDT Samantha has her pharmacy calling Carmina Sylvester RPh today to request [facility] [place] pharmacy calling asking for direction clarity on the following Sliding scale directions on the Novolog Please call pharmacy or e-scribe those sliding scale directions Patient has been identified by name and birthdate. Person calling: pharmacy: [facility] [place] Call patient at: on cell [phone] (home) [phone] (cell) Was an appointment scheduled: No Katherin Lagos documented in this encounterK[facility]05-24-2024 Telephone encounter Note * Telephone Encounter - Katherin Chowdhury - 02/25/2024 3:28 PM EDT Samantha has her pharmacy calling Carmina Sylvester RPh today to request [facility] [place] pharmacy calling asking for direction clarity on the following Sliding scale directions on the Novolog Please call pharmacy or e-scribe those sliding scale directions Patient has been identified by name and birthdate. Person calling: pharmacy: [facility] [place] Call patient at: on cell [phone] (home) [phone] (cell) Was an appointment scheduled: No Katherin Lagos [facility]05-23-2024 History of Present illness Narrative* Carmina Sylvester RPh - 02/24/2024 9:00 AM EDT Primary Care Pharmacy Visit CC (Reason for Consult): (E11.9) Type 2 diabetes (HCC) (primary encounter diagnosis) Goal(s): A1c <7% Last Collaborating Provider Visit: 02/11/24 with Cole Bower CNP Samantha Romero is a 58 year old female presenting for initial visit: This initial consult was conducted telephone call with the patient where the consult agreement was explained. The patient may decline or cancel the agreement at any time. After consideration, the patient consented to the pharmacy consult agreement and agreed to allow medications be collaboratively managed by a pharmacist. Last Pharmacy Visit: previously followed with [facility] (2019) HPI: Reports she may have missed a dose of Trulicity this past week Skips Novolog if skipping meal Sometimes takes Novolog after meal, was not aware she should be taking before meal Confirmed appropriate basal insulin dosing; insulin storage States she was prescribed tamsulosin, but was told to not take it anymore d/t having a UTI but now is feeling better Has not had an issues recently getting the Trulicity from the pharmacy. States she was on Ozempic at one time when Trulicity was unavailable but then was switched back. Has a few weeks of Trulicity left currently Reports BGs have been high recently Denies symptoms of hyperglycemia Current DM Medications: Jardiance 25 mg once daily Trulicity 4.5 mg once weekly on Sundays Tresiba 70 units once daily at bedtime Novolog 20 units + SS#2 TIDAC Previously Trialed DM Meds: Metformin - diarrhea (even on ER) Diet Eating 2 meals/day Breakfast/lunch: scrambled eggs, sausage links Dinner: ghoulash, chili, spaghetti, tacos Snacks: rarely Switched to zero sugar pop, zero sugar gatorade Exercise: No - limited d/t having oxygen Caffeine: No GLYCEMIC CONTROL: Glucometer present at visit: Yes - Freestyle Taylor reader Hypoglycemia: No Reports BGs have been high lately CGM Data Date range Overall AVG 12a-6a 6a-12p 12p-6p 6p-12a TIME IN RANGE 7 day 387 450 406 323 364 ABOVE 100% 14 day IN (80-180) 0% 30 day BELOW 0% Past medical history reviewed. ALLERGIES Allergen Reactions Metformin Diarrhea Diarrhea every time takes, even with ER dose Oxycodone GI Upset Percocet [Oxycodone* GI Upset and off balance Current Outpatient Medications Medication Sig Dispense Refill rosuvastatin (CRESTOR) 10 mg tablet Take 1 tablet by mouth daily at bedtime. 30 tablet 11 HYDROcodone-acetaminophen (NORCO) 5-325 mg per tablet Take 1 tablet by mouth three times a day as needed for pain for up to 30 days. gabapentin (NEURONTIN) 600 mg tablet Take 1 tablet by mouth three times a day for 90 days. 90 tablet 2 furosemide (LASIX) 40 mg tablet Take 1 tablet by mouth once daily as needed (for swelling). 30 tablet 3 hydrOXYzine HCl (ATARAX) 25 mg tablet Take 1-2 tablets by mouth at bedtime as needed. 30 tablet 3 blood sugar diagnostic (FREESTYLE LITE STRIPS) test strip Test blood sugar(s) 4 times daily. Dx: Other DM Code E11.40 Insulin: Yes 50 Strip 3 empagliflozin (JARDIANCE) 25 mg tablet Take 1 tablet by mouth daily with breakfast. 90 tablet 3 hydroCHLOROthiazide 50 mg tablet Take 1 tablet by mouth once daily. 30 tablet 2 meloxicam (MOBIC) 15 mg tablet Take 1 tablet by mouth once daily as needed for pain. With food. 30 tablet 1 Insulin [place], Disposable, (DROPLET PEN NEEDLE) 31 gauge x 3/16 use 1 PEN NEEDLE to inject MEDICATION subcutaneously four times a day 200 Each 2 dulaglutide (TRULICITY) 4.5 mg/0.5 mL pen injector Inject 4.5 mg subcutaneously one time a week. 4 Each 2 insulin degludec (TRESIBA FLEXTOUCH U-100) 100 unit/mL (3 mL) injection pen Inject 70 Units subcutaneously daily at bedtime. 60 mL 3 fluticasone (FLONASE) 50 mcg/actuation nasal spray Use 1-2 Sprays in each nostril once daily as needed. 1 Each 11 PEG 400-propylene glycol (SYSTANE ULTRA) 0.4-0.3 % ophthalmic solution Use 1 Drop in both eyes fourtimes daily. (Patient taking differently: Use 1 Drop in both eyes four times daily. Uses three times daily) 15 mL 4 peg 400-propylene glycol (SYSTANE GEL) 0.4-0.3 % drpg Use 1 Drop in both eyes daily at bedtime. 10 mL 2 omeprazole (PRILOSEC) 40 mg capsule take 1 capsule by mouth once daily 30 capsule 5 potassium chloride SR (MICRO-K) 10 mEq CR capsule Take 1 capsule by mouth once daily. 7 capsule 0 Cholecalciferol, Vitamin D3, 125 mcg (5,000 unit) cap Take 1 capsule by mouth once daily. 90 capsule 2 flash glucose sensor (FREESTYLE TAYLOR 14 DAY SENSOR) kit Use to check blood sugar 4 times daily. Please give 2 sensors per refill 2 Kit 5 blood sugar diagnostic (BLOOD GLUCOSE TEST) test strip Test blood sugar(s) 4 times daily. Dx: OtherDM Code E11.40 Insulin: Yes 50 Strip 11 insulin aspart U-100 (NOVOLOG) 100 unit/mL (3 mL) INJECT 20 UNITS SUBCUTANEOUSLY WITH MEALS THREE TIMES A DAY PLUS SLIDING SCALE #2 BASED ON PRE-MEAL BLOOD SUGAR (AROUND 80 UNITS PER DAY) 60 mL 3 levothyroxine (SYNTHROID) 200 mcg tablet Take 1 tablet by mouth daily before breakfast. 90 tablet 3 blood sugar diagnostic (BLOOD GLUCOSE TEST) test strip Test blood sugar(s) 4 times daily. Dx: Type 2 DM - Controlled E11.9 Insulin: Yes 200 Strip 11 OXYGEN, HOME THERAPY, Inhale as instructed as directed. Uses at 2 l/m via nasal cannula during the day and 4 l/m at night hydrocortisone 2.5 % cream Apply 1 application to affected area twice daily. Location: hands and chest (Patient taking differently: Apply 1 application to affected area two times a day. Location: hands and chest Uses as needed) 20 g 0 Blood-Glucose Meter monitoring kit Check sugars daily and as needed (Freestyle Lite is what she hashad) 1 Each 0 lisinopril 2.5 mg tablet Take 1 tablet by mouth once daily. 90 tablet 3 Lancets lancets Test blood sugar(s) 4 times daily. Dx: E11.9 Insulin: Yes (Patient taking differently: Test blood sugar(s) 4 times daily. Dx: E11.9 Insulin: Yes Uses as needed) 200 Each 11 Fenofibrate (LOFIBRA) 160 mg tablet Take 1 tablet by mouth once daily. 30 tablet 11 clotrimazole-betamethasone (LOTRISONE) cream Apply 1 application to affected area twice daily. X 2 weeks. (Patient taking differently: Apply 1 application to affected area two times a day. X 2 weeks. Uses as needed) 45 g 0 dicyclomine (BENTYL) 10 mg capsule Take 1 capsule by mouth before meals and at bedtime. for abdominal pain 120 capsule 5 Miscellaneous Medical Supply (BLOOD PRESSURE CUFF) 1 Each as needed. Blood pressure Monitor and Cuff, use as directed. Dx: I10 Hypertension 1 Each 0 flash glucose scanning reader (FREESTYLE TAYLOR 14 DAY READER) Use to check blood sugar 4 times daily 1 Each 0 estradiol (ESTRACE) 0.01 % (0.1 mg/gram) vaginal cream Use 3 g vaginally two times a week. 42.5 g 6 Current Facility-Administered Medications Medication Dose Route Frequency Provider Last Rate Last Admin sodium chloride 0.9 % (flush) 10 mL (BD POSIFLUSH) 10 mL INTRAVENOUS DIRECTED PRN Ramakrishna Brewster MD sodium chloride 0.9 % (flush) 10 mL (BD POSIFLUSH) 10 mL INTRAVENOUS DIRECTED Cole Khalil APRN.CNP sodium chloride 0.9 % (flush) 10 mL (BD POSIFLUSH) 10 mL INTRAVENOUS DIRECTED PRN Cole Bower APRN.ADVISORY SOFTWARE ENGINEER Pill bottles are not present. Adherence: denies missed doses. Rx coverage: Payor: [facility] MEDICAID / Plan: [facility] MEDICAID / Product Type: Medicaid / Medications affordable? Yes PHARMACOTHERAPY PREVENTATIVE MEDS: On ENID/ARB: Yes On Statin: Yes On ASA: No EXAM: LMP 04/27/2016 Last 3 Encounter BP Readings: Date: BP: 02/21/2024 99/52 02/11/2024 120/60 01/03/2024 106/60 Wt: 106 kg (233 lb 9.6 oz) BMI: 40.10 kg/(m^2) LABS: Lab Results Component Value Date HBA1C 10.7 02/02/2024 HBA1C 12.2 10/11/2023 HBA1C 12.6 06/28/2023 HBA1C 11.0 10/21/2022 HBA1C 8.3 04/10/2021 HBA1C 10.3 10/25/2020 HBA1C 8.5 04/10/2020 Glucose 317 02/02/2024 BUN 38 02/02/2024 Creatinine 1.13 02/02/2024 Sodium 138 02/02/2024 Potassium 4.2 02/02/2024 Chloride 100 02/02/2024 CO2 32 02/02/2024 Protein, Total 7.2 02/02/2024 Albumin 4.0 02/02/2024 Calcium 10.1 02/02/2024 Alkaline Phosphatase 79 02/02/2024 Bilirubin, Total 0.3 02/02/2024 AST 18 02/02/2024 ALT 21 02/02/2024 Lab Results Component Value Date CHOL 223 03/26/2023 CHOL 190 04/10/2021 CHOL 172 01/16/2021 LDL 03/26/2023 Comment: Unable to calculate due to increased Triglycerides. A Direct LDL Cholesterol measurement will not be performed. If clinically indicated, a fasting Basic Lipid Panel (LIPB) may be ordered. LDL 04/10/2021 Unable to calculate due to increased Triglycerides. A Direct LDL Cholesterol measurement will not be performed. If clinically indicated, a fasting Basic Lipid Panel (LIPB) may be ordered. LDL 01/16/2021 Unable to calculate due to increased Triglycerides. See LDL-Chol, Direct. HDL 39 03/26/2023 HDL 34 04/10/2021 HDL 33 01/16/2021 TG 521 03/26/2023 TG 596 04/10/2021 TG 412 01/16/2021 Albumin/Creat Ratio (mg/g) Date Value 10/11/2023 424 (H) eGFR-All Other Races (.) Date Value 05/22/2021 48 Estimated Glomerular Filtration Rate (mL/min/1.73m ) Date Value 02/02/2024 57 ASSESSMENT/PLAN: 1. Type 2 diabetes (HCC) - ICD9: 250.00, ICD10: E11.9 - Uncontrolled - Increase Tresiba to 78 units once daily - Increase Novolog to 22 units + sliding scale #2 with meals. Reviewed appropriate dosing and administration of mealtime insulin - Continue Trulicity 4.5 mg once weekly and Jardiance 25 mg once daily - Statin prescribed - rosuvastatin - Blood glucose monitoring on a continuous glucose monitoring schedule - Counseled on healthy diet and regular exercise - Discussed diabetic education issues of diabetes complications and monitoring required and hypoglycemic/hyperglycemic symptoms - Follow up in 1 month, sooner should any other issues arise. Follow Up: Next PCP visit: 05/16/24 Next PharmD visit: 03/31/24 Carmina Sylvester PharmD Primary Care Clinical Hose Tender [facility] Instructions* Patient Instructions* Ramesh Brewster MD - 02/21/2024 1:50 PM EDT We will repeat an echocardiogram in Sept documented in this encounterK[facility] History of Present illness Narrative* Ramesh Brewster MD - 02/21/2024 1:40 PM EDT Images from the original note were not included. [facility] CARDIOLOGY Cardiology ([facility]) [address] [id number] OUTPATIENT VISIT DATE 02/21/2024 PRIMARY CARE PHYSICIAN: Sarina Adams [address] [place] [address] REFERRING PHYSICIAN: Dr. Adams HISTORY OF PRESENT ILLNESS: Ms. Romero is a 58 year old with extensive medical history including diabetes (insulin requiring), obesity, hypertension, dyslipidemia, chronic hypoxic respiratory failure requiring 2 L of nasal oxygen, and small to moderate chronic pericardial effusion who presents for routine follow-up. Since herlast visit, she has been doing well. She has chronic shortness of breath on exertion which is unchanged from prior. She reports occasional episodes of chest pressure that happen when she is off her oxygen especially with ambulation. She has not had symptoms concerning for CHF including PND, orthopnea, lower extremity edema. She denies symptoms of palpitations, lightheadedness, dizziness, or syncope. PAST MEDICAL HISTORY Diagnosis Date Chronic hypoxemic respiratory failure (HCC) COVID-19 07/06/2021 HTN (hypertension) Hyperlipidemia 04/05/2014 Hypothyroid 04/19/2014 Kidney stone on left side 04/12/2014 Myasthenia gravis (HCC) OA (osteoarthritis) of hip, bilateral 04/04/2014 Type II or unspecified type diabetes mellitus without mention of complication, uncontrolled 04/05/2014 PAST SURGICAL HISTORY Procedure Laterality Date ESWL 04/25/14 kidney stones ESWL 05/16/14 kidney stones. PAST SURGICAL HISTORY OF c-sections x 2 PAST SURGICAL HISTORY OF appendectomy PAST SURGICAL HISTORY OF tubal ligation REMV CATARACT EXTRACAP,INSERT LENS Left 06/12/2021 Monofocal IOL 17.5 D XCAPSL CTRC RMVL INSJ IO LENS PROSTH W/O ECP Right 05/29/2021 SOCIAL HISTORY Social History Tobacco Use Smoking status: Former Packs/day: 1.00 Years: 30.00 Additional pack years: 0.00 Total pack years: 30.00 Types: Cigarettes Quit date: 11/04/2013 Years since quittin.3 Smokeless tobacco: Never Vaping Use Vaping Use: Never used Substance Use Topics Alcohol use: Not Currently Comment: wine cool every once in a while Drug use: Not Currently Types: Marijuana FAMILY HISTORY Problem Relation Age of Onset Diabetes Mother Cervical Cancer Sister Diabetes Brother Cancer Maternal Grandmother Stomach CA Breast Cancer Maternal Aunt 50's ALLERGIES: ALLERGIES Allergen Reactions Metformin Diarrhea Diarrhea every time takes, even with ER dose Oxycodone GI Upset Percocet [Oxycodone* GI Upset and off balance MEDICATIONS: rosuvastatin (CRESTOR) 10 mg tablet^Take 1 tablet by mouth daily at bedtime.^Disp: 30 tablet^Rfl: 11 HYDROcodone-acetaminophen (NORCO) 5-325 mg per tablet^Take 1 tablet by mouth three times a day as needed for pain for up to 30 days.^Disp: ^Rfl: gabapentin (NEURONTIN) 600 mg tablet^Take 1 tablet by mouth three times a day for 90 days.^Disp: 90tablet^Rfl: 2 furosemide (LASIX) 40 mg tablet^Take 1 tablet by mouth once daily as needed (for swelling).^Disp: 30 tablet^Rfl: 3 hydrOXYzine HCl (ATARAX) 25 mg tablet^Take 1-2 tablets by mouth at bedtime as needed.^Disp: 30 tablet^Rfl: 3 blood sugar diagnostic (FREESTYLE LITE STRIPS) test strip^Test blood sugar(s) 4 times daily. Dx: Other DM Code E11.40 Insulin: Yes^Disp: 50 Strip^Rfl: 3 empagliflozin (JARDIANCE) 25 mg tablet^Take 1 tablet by mouth daily with breakfast.^Disp: 90 tablet^Rfl: 3 hydroCHLOROthiazide 50 mg tablet^Take 1 tablet by mouth once daily.^Disp: 30 tablet^Rfl: 2 meloxicam (MOBIC) 15 mg tablet^Take 1 tablet by mouth once daily as needed for pain. With food.^Disp: 30 tablet^Rfl: 1 Insulin [place], Disposable, (DROPLET PEN NEEDLE) 31 gauge x 3/16^use 1 PEN NEEDLE to inject MEDICATION subcutaneously four times a day^Disp: 200 Each^Rfl: 2 dulaglutide (TRULICITY) 4.5 mg/0.5 mL pen injector^Inject 4.5 mg subcutaneously one time a week.^Disp: 4 Each^Rfl: 2 insulin degludec (TRESIBA FLEXTOUCH U-100) 100 unit/mL (3 mL) injection pen^Inject 70 Units subcutaneously daily at bedtime.^Disp: 60 mL^Rfl: 3 fluticasone (FLONASE) 50 mcg/actuation nasal spray^Use 1-2 Sprays in each nostril once daily as needed.^Disp: 1 Each^Rfl: 11 peg 400-propylene glycol (SYSTANE GEL) 0.4-0.3 % drpg^Use 1 Drop in both eyes daily at bedtime.^Disp: 10 mL^Rfl: 2 omeprazole (PRILOSEC) 40 mg capsule^take 1 capsule by mouth once daily^Disp: 30 capsule^Rfl: 5 potassium chloride SR (MICRO-K) 10 mEq CR capsule^Take 1 capsule by mouth once daily.^Disp: 7 capsule^Rfl: 0 Cholecalciferol, Vitamin D3, 125 mcg (5,000 unit) cap^Take 1 capsule by mouth once daily.^Disp: 90 capsule^Rfl: 2 flash glucose sensor (FREESTYLE TAYLOR 14 DAY SENSOR) kit^Use to check blood sugar 4 times daily. Please give 2 sensors per refill^Disp: 2 Kit^Rfl: 5 blood sugar diagnostic (BLOOD GLUCOSE TEST) test strip^Test blood sugar(s) 4 times daily. Dx: OtherDM Code E11.40 Insulin: Yes^Disp: 50 Strip^Rfl: 11 insulin aspart U-100 (NOVOLOG) 100 unit/mL (3 mL)^INJECT 20 UNITS SUBCUTANEOUSLY WITH MEALS THREE TIMES A DAY PLUS SLIDING SCALE #2 BASED ON PRE-MEAL BLOOD SUGAR (AROUND 80 UNITS PER DAY)^Disp: 60mL^Rfl: 3 levothyroxine (SYNTHROID) 200 mcg tablet^Take 1 tablet by mouth daily before breakfast.^Disp: 90 tablet^Rfl: 3 blood sugar diagnostic (BLOOD GLUCOSE TEST) test strip^Test blood sugar(s) 4 times daily. Dx: Type 2 DM - Controlled E11.9 Insulin: Yes^Disp: 200 Strip^Rfl: 11 OXYGEN, HOME THERAPY,^Inhale as instructed as directed. Uses at 2 l/m via nasal cannula during the day and 4 l/m at night^Disp: ^Rfl: hydrocortisone 2.5 % cream^Apply 1 application to affected area twice daily. Location: hands and chest^Disp: 20 g^Rfl: 0 (Patient taking differently: Apply 1 application to affected area two times a day. Location: hands and chest Uses as needed) Blood-Glucose Meter monitoring kit^Check sugars daily and as needed (Freestyle Lite is what she hashad)^Disp: 1 Each^Rfl: 0 lisinopril 2.5 mg tablet^Take 1 tablet by mouth once daily.^Disp: 90 tablet^Rfl: 3 Lancets lancets^Test blood sugar(s) 4 times daily. Dx: E11.9 Insulin: Yes^Disp: 200 Each^Rfl: 11 (Patient taking differently: Test blood sugar(s) 4 times daily. Dx: E11.9 Insulin: Yes Uses as needed) Fenofibrate (LOFIBRA) 160 mg tablet^Take 1 tablet by mouth once daily.^Disp: 30 tablet^Rfl: 11 clotrimazole-betamethasone (LOTRISONE) cream^Apply 1 application to affected area twice daily. X 2 weeks.^Disp: 45 g^Rfl: 0 (Patient taking differently: Apply 1 application to affected area two timesa day. X 2 weeks. Uses as needed) dicyclomine (BENTYL) 10 mg capsule^Take 1 capsule by mouth before meals and at bedtime. for abdominal pain^Disp: 120 capsule^Rfl: 5 Miscellaneous Medical Supply (BLOOD PRESSURE CUFF)^1 Each as needed. Blood pressure Monitor and Cuff, use as directed. Dx: I10 Hypertension^Disp: 1 Each^Rfl: 0 flash glucose scanning reader (RedbeaconSTYLE TAYLOR 14 DAY READER)^Use to check blood sugar 4 times daily^Disp: 1 Each^Rfl: 0 PEG 400-propylene glycol (SYSTANE ULTRA) 0.4-0.3 % ophthalmic solution^Use 1 Drop in both eyes fourtimes daily.^Disp: 15 mL^Rfl: 4 (Patient taking differently: Use 1 Drop in both eyes four times daily. Uses three times daily) estradiol (ESTRACE) 0.01 % (0.1 mg/gram) vaginal cream^Use 3 g vaginally two times a week.^Disp: 42.5 g^Rfl: 6 REVIEW OF SYSTEMS: Review of Systems Constitutional: Negative for chills, fever, malaise/fatigue and weight loss. HENT: Negative for hearing loss and sore throat. Eyes: Negative for blurred vision and double vision. Respiratory: Negative. Cardiovascular: Negative. Genitourinary: Negative for dysuria, frequency, hematuria and urgency. Musculoskeletal: Negative. Skin: Negative. Neurological: Negative for dizziness, seizures, loss of consciousness, weakness and headaches. Endo/Heme/Allergies: Negative for environmental allergies. Does not bruise/bleed easily. Psychiatric/Behavioral: Negative for depression. PHYSICAL EXAMINATION: BP 99/52 Pulse 66 Ht 5' 4 (1.63m) Wt 233 lb 9.6 oz (106.0kg) SpO2 97% LMP 04/27/2016 BMI 40.08 kg/(m^2). General: Obese pleasant woman sitting comfortable no apparent distress she is alert and oriented x3 HEENT: Carotid upstrokes are brisk bilateral without bruits. No JVD appreciated but limited examination due to body habitus Pulmonary: Lungs are clear no rales, wheezes, rhonchi Cardiovascular: Normal S1, S2 with regular rate and rhythm. No S4 appreciated. No other murmurs rubs or gallops Extremities: Warm, well-perfused, no lower extremity edema. 2+ distal pulses CARDIOVASCULAR MEDICINE TESTING: Echocardiogram 05/24/2023: - Exam indication: Shortness of Breath - The left ventricle is normal in size. Left ventricular systolic function is normal. EF = 60 5% (2D biplane) Normal left ventricular diastolic function. - The right ventricle is normal in size. Right ventricular systolic function is normal. - There are no significant valvular abnormalities. - There is a moderate circumferential pericardial effusion. - There is a known small to moderate circumferential pericardial effusion without tamponade physiology. - Limited subcostal views. IVC not seen. - Exam was compared with the prior echocardiographic exam performed on 02/08/2023, no significant change. Echocardiogram 12/29/2022: - Technically difficult exam due to body habitus. - Exam indication: Cardiac murmur - The left ventricle is small. Left ventricular systolic function is normal. EF = 55 5% (visual est.) Grade I left ventricular diastolic dysfunction. - The right ventricle is normal in size. Right ventricular systolic function is normal. - There is a small to moderate circumferential pericardial effusion without tamponade physiology. - No subcostal views. - The patient has not had a prior CC echocardiographic exam for comparison. CT Chest 07/17/2022: Heart, pericardium, and thoracic vessels: The thoracic aorta and main pulmonary artery are normal in caliber. The cardiac chambers are normal in size. No coronary artery atherosclerotic calcifications are noted, although the study is not optimized for coronary assessment. Small amount of pericardial fluid IMPRESSION: Ms. Romero is a 58 year old woman chronic small to moderate pericardial effusion, hypertension, dyslipidemia, insulin requiring diabetes, prior [id number] smoking history (quit 2016), chronic hypoxic respiratory failure maintained on 2 L home oxygen who presents for routine follow-up. PLAN AND RECOMMENDATIONS: 1. Pericardial effusion - ICD9: 423.9, ICD10: I31.39 (primary diagnosis) Most recent CT scan reviewed. Small pericardial effusion. Recheck 2D echocardiogram - ECHO - PERFLUTREN LIPID MICROSPHERES 1.1 MG/ML INJECTION IN NS 10 ML - SODIUM CHLORIDE 0.9 % (FLUSH) INJECTION SYRINGE 2. Essential hypertension - ICD9: 401.9, ICD10: I10 Well-controlled on current regimen 3. Mixed hyperlipidemia - ICD9: 272.2, ICD10: E78.2 Maintained on stable fibrate and Crestor 10 mg daily. Last fasting blood work showed an LDL cholesterol of 61 mg/dL Ramesh Brewster MD documented [facility] Telephone encounter Note * Telephone Encounter - Flaca Lindquist - 02/21/2024 8:47 AM EDT Telephoned the patient to schedule Primary Care pharmacy appt. Unable to leave a message as voicemail is still full. A Fatsoma message was already sent and patient has not viewed it. When the patientreturns the call, an appt will be schedule. Routing encounter to clinical pharmacist. [facility] Miscellaneous Notes* Telephone Encounter - Flaca Lindquist - 02/21/2024 8:47 AM EDT Telephoned the patient to schedule Primary Care pharmacy appt. Unable to leave a message as voicemail is still full. A MyChart message was already sent and patient has not viewed it. When the patientreturns the call, an appt will be schedule. Routing encounter to clinical pharmacist. * Telephone Encounter - Flaca Lindquist - 02/17/2024 10:53 AM EDT Telephoned the patient to schedule a new Primary Care pharmacy appt. Unable to LMOVM as her voicemail is full. Called secondary number (listed in phone comments), belonging to [employer], and left a generic message. Sending MyChart message as well. documented in this encounterK[facility]05-16-[facility]24 Telephone encounter Note * Telephone Encounter - LiFlaca Clarke - 02/17/2024 10:53 AM EDT Telephoned the patient to schedule a new Primary Care pharmacy appt. Unable to LMOVM as her voicemail is full. Called secondary number (listed in phone comments), belonging to [employer], and left a generic message. Sending MyChart message as well. [facility] History of Present illness Narrative* Pat Iqbal RPh - 02/16/2024 2:10 PM EDT Primary Care Pharmacy Panel Management This patient has been identified through panel management efforts by the primary care pharmacy team. Please contact patient and schedule a pharmacy phone or virtual visit for diabetes management. Please use New Pharmacy, New Pharmacy Phone call, or Video Primary New visit types. Pat Iqbal RPh documented in this encounterK[facility]05-13-2024 Telephone encounter Note * Telephone Encounter - Cole Bower APRN.CNP - 02/14/2024 12:46 PM EDT Noted, glad she is feeling better. [facility] Miscellaneous Notes* Telephone Encounter - Cole Bower APRN.CNP - 02/14/2024 12:46 PM EDT Noted, glad she is feeling better. * Telephone Encounter - Alicja Robin RN - 02/14/2024 11:13 AM EDT Pt called and is notified of providers results and instructions. Pt voices understanding. She states she feels a little better after starting the antibiotic. She states she has also been taking her Vicodin because she had bad stomach pain and it has eased up some. Alicja Robin RN * Telephone Encounter - Cole Bower APRN.CNP - 02/14/2024 7:19 AM EDT Please call [place] and let her know the urine culture does confirm infection. She can stop the Flomax but should continue the Bactrim. Please see how she is feeling today. Thanks!! documented in this [facility]-2024 Telephone encounter Note * Telephone Encounter - Alicja Robin RN - 02/14/2024 11:13 AM EDT Pt called and is notified of providers results and instructions. Pt voices understanding. She states she feels a little better after starting the antibiotic. She states she has also been taking her Vicodin because she had bad stomach pain and it has eased up some. Alicja Robin RN [facility]-13-[facility] Telephone encounter Note* Telephone Encounter - Cole Bower APRN.CNP - 02/14/2024 7:19 AM EDT Please call Samantha and let her know the urine culture does confirm infection. She can stop the Flomax but should continue the Bactrim. Please see how she is feeling today. Thanks!! [facility] History of Present illness Narrative* Cole Boewr APRN.KENDAL - 02/11/2024 1:54 PM EDT SUBJECTIVE Samantha Romero is a 58 year old female here today for a check up on her medical problems. Chief Complaint Patient presents with: 2 month follow up Abdominal Pain: lower mid for about 1 week question UTI HPI Samantha Romero is a 58 year old female.She is an established patient of Sarina Adams MD. Concernsof either a UTI or kidney stone.Issues with worsening in her chronic low back pain and now having some flank pain and pain over the bladder. History of UTIs and kidney stones. Not sure which this feel like. Reynolds was decreased back to BID but she is really needing it TID most days. In regards to medications currently taken for pain management, the patient is tolerating these medications well and without side effects. She reports that the medications improve her quality of life and ability to function. She denies misuse, abuse or diversion of medications. Her medications were reviewed today and her list is now up to date. Medications Current Outpatient Medications Medication Sig hydrOXYzine HCl (ATARAX) 25 mg tablet Take 1-2 tablets by mouth at bedtime as needed. empagliflozin (JARDIANCE) 25 mg tablet Take 1 tablet by mouth daily with breakfast. hydroCHLOROthiazide 50 mg tablet Take 1 tablet by mouth once daily. meloxicam (MOBIC) 15 mg tablet Take 1 tablet by mouth once daily as needed for pain. With food. dulaglutide (TRULICITY) 4.5 mg/0.5 mL pen injector Inject 4.5 mg subcutaneously one time a week. insulin degludec (TRESIBA FLEXTOUCH U-100) 100 unit/mL (3 mL) injection pen Inject 70 Units subcutaneously daily at bedtime. fluticasone (FLONASE) 50 mcg/actuation nasal spray Use 1-2 Sprays in each nostril once daily as needed. peg 400-propylene glycol (SYSTANE GEL) 0.4-0.3 % drpg Use 1 Drop in both eyes daily at bedtime. omeprazole (PRILOSEC) 40 mg capsule take 1 capsule by mouth once daily potassium chloride SR (MICRO-K) 10 mEq CR capsule Take 1 capsule by mouth once daily. Cholecalciferol, Vitamin D3, 125 mcg (5,000 unit) cap Take 1 capsule by mouth once daily. insulin aspart U-100 (NOVOLOG) 100 unit/mL (3 mL) INJECT 20 UNITS SUBCUTANEOUSLY WITH MEALS THREE TIMES A DAY PLUS SLIDING SCALE #2 BASED ON PRE-MEAL BLOOD SUGAR (AROUND 80 UNITS PER DAY) levothyroxine (SYNTHROID) 200 mcg tablet Take 1 tablet by mouth daily before breakfast. hydrocortisone 2.5 % cream Apply 1 application to affected area twice daily. Location: hands and chest (Patient taking differently: Apply 1 application to affected area two times a day. Location: hands and chest Uses as needed) lisinopril 2.5 mg tablet Take 1 tablet by mouth once daily. Fenofibrate (LOFIBRA) 160 mg tablet Take 1 tablet by mouth once daily. clotrimazole-betamethasone (LOTRISONE) cream Apply 1 application to affected area twice daily. X 2 weeks. (Patient taking differently: Apply 1 application to affected area two times a day. X 2 weeks. Uses as needed) dicyclomine (BENTYL) 10 mg capsule Take 1 capsule by mouth before meals and at bedtime. for abdominal pain rosuvastatin (CRESTOR) 10 mg tablet Take 1 tablet by mouth daily at bedtime. HYDROcodone-acetaminophen (NORCO) 5-325 mg per tablet Take 1 tablet by mouth three times a day as needed for pain for up to 30 days. gabapentin (NEURONTIN) 600 mg tablet Take 1 tablet by mouth three times a day for 90 days. furosemide (LASIX) 40 mg tablet Take 1 tablet by mouth once daily as needed (for swelling). tamsulosin (FLOMAX) 0.4 mg Take 1 capsule by mouth once daily. sulfamethoxazole-trimethoprim (BACTRIM DS) 800-160 mg per tablet Take 1 tablet by mouth two times aday for 7 days. blood sugar diagnostic (FREESTYLE LITE STRIPS) test strip Test blood sugar(s) 4 times daily. Dx: Other DM Code E11.40 Insulin: Yes Insulin [place], Disposable, (DROPLET PEN NEEDLE) 31 gauge x 3/16 use 1 PEN NEEDLE to inject MEDICATION subcutaneously four times a day PEG 400-propylene glycol (SYSTANE ULTRA) 0.4-0.3 % ophthalmic solution Use 1 Drop in both eyes fourtimes daily. (Patient taking differently: Use 1 Drop in both eyes four times daily. Uses three times daily) flash glucose sensor (FREESTYLE TAYLOR 14 DAY SENSOR) kit Use to check blood sugar 4 times daily. Please give 2 sensors per refill blood sugar diagnostic (BLOOD GLUCOSE TEST) test strip Test blood sugar(s) 4 times daily. Dx: OtherDM Code E11.40 Insulin: Yes blood sugar diagnostic (BLOOD GLUCOSE TEST) test strip Test blood sugar(s) 4 times daily. Dx: Type 2 DM - Controlled E11.9 Insulin: Yes OXYGEN, HOME THERAPY, Inhale as instructed as directed. Uses at 2 l/m via nasal cannula during the day and 4 l/m at night Blood-Glucose Meter monitoring kit Check sugars daily and as needed (Freestyle Lite is what she hashad) Lancets lancets Test blood sugar(s) 4 times daily. Dx: E11.9 Insulin: Yes (Patient taking differently: Test blood sugar(s) 4 times daily. Dx: E11.9 Insulin: Yes Uses as needed) Miscellaneous Medical Supply (BLOOD PRESSURE CUFF) 1 Each as needed. Blood pressure Monitor and Cuff, use as directed. Dx: I10 Hypertension flash glucose scanning reader (FREESTYLE TAYLOR 14 DAY READER) Use to check blood sugar 4 times daily estradiol (ESTRACE) 0.01 % (0.1 mg/gram) vaginal cream Use 3 g vaginally two times a week. Current Facility-Administered Medications Medication Dose Route Frequency sodium chloride 0.9 % (flush) 10 mL (BD POSIFLUSH) 10 mL INTRAVENOUS DIRECTED PRN sodium chloride 0.9 % (flush) 10 mL (BD POSIFLUSH) 10 mL INTRAVENOUS DIRECTED PRN sodium chloride 0.9 % (flush) 10 mL (BD POSIFLUSH) 10 mL INTRAVENOUS DIRECTED PRN ALLERGIES Allergen Reactions Metformin Diarrhea Diarrhea every time takes, even with ER dose Oxycodone GI Upset Percocet [Oxycodone* GI Upset and off balance ACTIVE PROBLEM LIST Hypothyroid - 04/19/2014 (A priority) Diabetic Eye Exam ([facility]) - 04/05/2014 (A priority) Hyperlipidemia - 04/05/2014 (A priority) Kidney Stone On Left Side - 04/12/2014 (C priority) Comment: Dr. Ash is her doctor. Routine Gynecological Examination - 04/04/2014 (D priority) Comment: Seeing Dr. Deluca. Pericardial Effusion - 01/25/2023 Obesity, Class II, Bmi 35-39.9 - 01/25/2023 Obesity, Class III, BMI >= 40 - 12/18/2022 Gastroesophageal Reflux Disease - 10/19/2022 Chronic Midline Low Back Pain - 10/19/2022 Esophageal Dysphagia - 10/19/2022 Gastroesophageal Reflux Disease With Esophagitis Without Hemorrhage - 10/19/2022 Comment: Intermittent reflux Myasthenia Gravis ([facility]) - 07/30/2022 Type 2 Diabetes Mellitus With Diabetic Neuropathy, With Long-Term Current Use of Insulin ([facility]) - 07/30/2022 Bilateral Leg Edema - 07/30/2022 Comment: worse on left Dysuria - 07/30/2022 Comment: Follow up with gynecology 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 Chronic Hypoxemic Respiratory Failure ([facility]) - 12/09/2021 Pneumonia Due to Covid-19 Virus - 08/05/2021 Status Post Cataract Extraction and Insertion of Intraocular Lens of Right Eye - 06/03/2021 Combined Forms of Age-Related Cataract of Left Eye - 05/09/2021 Type 2 Diabetes Mellitus With Moderate Nonproliferative Diabetic Retinopathy With Macular Edema ([facility]) - 05/09/2021 Type 2 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 Macular Edema, Without Long-Term Current Use of Insulin ([facility]) - 05/09/2021 Uncontrolled Type 2 Diabetes With Neuropathy - 08/20/2015 Abnormally Small Mouth - 06/24/2015 Essential Hypertension - 06/24/2015 Obesity - 06/24/2015 Thrombocytopenia ([facility]) - 06/24/2015 Noncompliance - 10/17/2014 OA (osteoarthritis) of hip, bilateral - 04/04/2014 Social History Tobacco Use Smoking status: Former Packs/day: 1.00 Years: 30.00 Additional pack years: 0.00 Total pack years: 30.00 Types: Cigarettes Quit date: 11/04/2013 Years since quittin.2 Smokeless tobacco: Never Vaping Use Vaping Use: Never used Substance Use Topics Alcohol use: Not Currently Comment: wine cool every once in a while Drug use: Not Currently Types: Marijuana Review of Systems Respiratory: Negative. Cardiovascular: Negative. Genitourinary: Positive for dysuria, flank pain, frequency and urgency. OBJECTIVE BP 120/60 Pulse 76 Wt 231 lb (104.8kg) SpO2 95% LMP 04/27/2016 Physical Exam Vitals and nursing note reviewed. Constitutional: General: She is awake. She is not in acute distress. Appearance: Normal appearance. She is well-developed and well-groomed. She is not ill-appearing, toxic-appearing or diaphoretic. HENT: Head: Normocephalic. Right Ear: External ear normal. Left Ear: External ear normal. Nose: Nose normal. Eyes: General: Vision grossly intact. Conjunctiva/sclera: Conjunctivae normal. Pupils: Pupils are equal, round, and reactive to light. Neck: Vascular: No JVD. Trachea: Trachea normal. Cardiovascular: Rate and Rhythm: Normal rate and regular rhythm. Pulses: Normal pulses. Heart sounds: Normal heart sounds. No murmur heard. Pulmonary: Effort: Pulmonary effort is normal. No accessory muscle usage, prolonged expiration or respiratory distress. Breath sounds: Normal breath sounds. Musculoskeletal: Cervical back: Neck supple. Skin: General: Skin is warm and dry. Capillary Refill: Capillary refill takes less than 2 seconds. Neurological: General: No focal deficit present. Mental Status: She is alert and oriented to person, place, and time. Mental status is at baseline. Psychiatric: Attention and Perception: Attention and perception normal. Mood and Affect: Mood and affect normal. Speech: Speech normal. Behavior: Behavior normal. Behavior is cooperative. Thought Content: Thought content normal. Cognition and Memory: Cognition and memory normal. Judgment: Judgment normal. ASSESSMENT/PLAN: 1. Chronic midline low back pain, unspecified whether sciatica present - ICD9: 724.2, 338.29, ICD10: M54.50, G89.29 (primary diagnosis) Worsening in chronic back pain and acute on chronic issues with current urinary symptoms. Increase gabapentin and increase norco back to TID PRN. OARRS reviewed and script is appropriate, non-opioids considered. Patient is aware of risks and benefits of opioid medications and their use, including but not limited to risk for addiction. Advised to take medication as prescribed and adhere to the dosing regimen and to use the least amount necessary for the shortest period of time. Discussed possible side effects including constipation. Advised to use caution when operating heavy machinery and driving and to never share or sell medication. - HYDROCODONE 5 MG-ACETAMINOPHEN 325 MG TABLET - GABAPENTIN 600 MG TABLET 2. Chronic SI joint pain - ICD9: 724.6, 338.29, ICD10: M53.3, G89.29 - HYDROCODONE 5 MG-ACETAMINOPHEN 325 MG TABLET 3. Lower urinary tract symptoms - ICD9: 788.99, ICD10: R39.9 UTI vs kidney stone, urine dip positive for hematuria, protein, leukocytes. We will culture, since her etiology is unclear we will start Bactrim and Flomax and call with culture results to decide next steps. - UA DIP B/O - URINE CULTURE - TAMSULOSIN 0.4 MG CAPSULE - SULFAMETHOXAZOLE 800 MG-TRIMETHOPRIM 160 MG TABLET 4. 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) - ICD9: 250.50, 362.05, 362.07, ICD10: E11.3319 5. Leg swelling - ICD9: 729.81, ICD10: M79.89 Increase PRN lasix. - FUROSEMIDE 40 MG TABLET Portions of this note have been entered by ancillary staff. I have reviewed and when necessary edited, so that they are an adequate record of my encounter with this patient Please note that parts of this document were created using voice recognition software and therefore may contain grammatical errors. Patient verbalizes understanding of instructions from today's visit and in agreement with treatmentplan. Questions answered. Agrees to call the office if questions, concerns of issues with acute symptoms not improving or if they worsen. See diagnoses and orders for additional plan(s). Allergies and medications were reviewed, list was updated, and refills given if needed. Past medical, surgical, social, and family history reviewed and updated as appropriate. Encouraged proper diet & exercise as well as compliance with taking medications. Age- appropriate health preventative measures were discussed. Return in about 3 months (around 05/13/2024), or if symptoms worsen or fail to improve, for Follow up on chronic conditions and medications.. Cole Bower APRN-KENDAL documented [facility] Instructions* Patient Instructions* Rosa Elena Deluca LPN - 02/11/2024 1:54 PM EDT Images from the original note were not included. Urinary Problem-When to Seek Help? Symptoms of a urinary problem may lead to a bladder infection. Women are at greater risk of a urinary tract infection than are men. Most urinary tract infections in women are caused by bacteria and involve the lower urinary tract including the bladder and urethra. Symptoms: Pain or burning when passing urine, urgency, frequency, blood in the urine, difficult emptying your bladder, and lower abdominal fullness or pressure. Common Causes: Sexual intercourse, menopause, constipation, uncontrolled diabetes, dehydration and feminine products such as tampons, and kidney stones. When to Get Help: Seek medical attention if you get frequent bladder infections, urinary concerns such as leakage, blood in the urine or frequent need to urinate. You may be recommended to get help from a specialist, such as a urologist. Diagnosis & Treatment: Lab testing may include: urinalysis, and urine culture that can be collected in the lab or walk-in clinic. Most bladder infections can easily be treated. A physician, nurse practitioner or physician special events assistant may treat with a short course of an antibiotic. Delaying treatment can lead to worsening symptoms, like a kidney infection. Self-Care: Avoid a full bladder, bubble baths, bath oils, food and beverages that may irritate the bladder such as caffeine. Avoid spermicide foam and diaphragms Void before and after sexual intercourse Wipe front to back after using the bathroom. Stay hydrated Stop Smoking Follow-up Care: Follow up testing is not needed in healthy young women if symptoms resolve. documented in this encounterK[facility]-09-[facility]24 Telephone encounter Note * Telephone Encounter - Jarrod Buckley MA - 02/10/2024 12:15 PM EDT TC to pt. Advised this was only a short term increase per last refill note. Pt states sometimes sheneeds to take more because of her pain. Reminded pt of OV scheduled for tomorrow with Cole and advised this could be discussed at that time. Pt verbalized understanding. [facility]-09-2024 Miscellaneous Notes* Telephone Encounter - Jarrod Buckley MA - 02/10/2024 12:15 PM EDT TC to pt. Advised this was only a short term increase per last refill note. Pt states sometimes sheneeds to take more because of her pain. Reminded pt of OV scheduled for tomorrow with Cole and advised this could be discussed at that time. Pt verbalized understanding. * Telephone Encounter - Kaley German - 02/10/2024 10:20 AM EDT Samantha is calling Sarina Adams MD today asking why the Hydrocodone medication was decreased, asking directions are taking 3 times a day instead of two? Please advise and return her call documented in this encounterK[facility]05-09-2024 Telephone encounter Note * Telephone Encounter - Kaley German - 02/10/2024 10:20 AM EDT Samantha is calling Sarina Adams MD today asking why the Hydrocodone medication was decreased, asking directions are taking 3 times a day instead of two? Please advise and return her call [facility]-07-[facility] Telephone encounter Note* Telephone Encounter - Jaylyn Vazquez LPN - 02/08/2024 10:45 AM EDT Spoke to Charles/Evette, Patient picked up Furosemide RX today, nothing more needed. Jaylyn Vazquez LPN [facility]05-07-[facility]24 Miscellaneous Notes* Telephone Encounter - Jaylyn Vazquez LPN - 02/08/2024 10:45 AM EDT Spoke to Charles/Evette, Patient picked up Furosemide RX today, nothing more needed. Jaylyn Vazquez LPN documented in this encounterK[facility]05-06-2024 Telephone encounter Note * Telephone Encounter - Cole Bower APRN.CNP - 02/07/2024 4:05 PM EDT [facility] All prescriptions have been APPROPRIATELY filled. No suspiciousactivity was identified. 02/07/2024 by Cole Bower APRN.KENDAL [facility]05-06-2024 Miscellaneous Notes* Telephone Encounter - Cole Bower APRN.KENDAL - 02/07/2024 4:05 PM EDT [facility] All prescriptions have been APPROPRIATELY filled. No suspiciousactivity was identified. 02/07/2024 by Cole Bower APRN.KENDAL * Telephone Encounter - Rosa Elena Deluca LPN - 02/07/2024 3:39 PM EDT Patient has been identified by name and date of : Yes, Patient phones for refill(s): Requested Prescriptions Pending Prescriptions Disp Refills furosemide (LASIX) 20 mg tablet 7 tablet 0 Sig: Take 1 tablet by mouth once daily. HYDROcodone-acetaminophen (NORCO) 5-325 mg per tablet 90 tablet 0 Sig: Take 1 tablet by mouth three times a day as needed for pain for up to 30 days. Temporary increase to TID for x1 month on 12/10/2023 meloxicam (MOBIC) 15 mg tablet 30 tablet 1 Sig: Take 1 tablet by mouth once daily as needed for pain. With food. Date of last office visit in primary care: 12/10/2023 Date of next office visit in primary care: 02/11/2024 Please advise. Thank you. Rosa Elena Deluca LPN. * Telephone Encounter - Mayte Vinson - 02/07/2024 3:24 PM EDT Patient has been identified by name and date of : Yes Requested Prescriptions Pending Prescriptions Disp Refills furosemide (LASIX) 20 mg tablet 7 tablet 0 Sig: Take 1 tablet by mouth once daily. HYDROcodone-acetaminophen (NORCO) 5-325 mg per tablet 90 tablet 0 Sig: Take 1 tablet by mouth three times a day as needed for pain for up to 30 days. Temporary increase to TID for x1 month on 12/10/2023 meloxicam (MOBIC) 15 mg tablet 30 tablet 1 Sig: Take 1 tablet by mouth once daily as needed for pain. With food. RX INSTRUCTIONS: Patient aware RX will be sent to pharmacy. No need to notify patient. Mayte Vinson documented in this encounterK[facility]05-06-2024 Telephone encounter Note * Telephone Encounter - Rosa Elena Deluca LPN - 02/07/2024 3:39 PM EDT Patient has been identified by name and date of : Yes, Patient phones for refill(s): Requested Prescriptions Pending Prescriptions Disp Refills furosemide (LASIX) 20 mg tablet 7 tablet 0 Sig: Take 1 tablet by mouth once daily. HYDROcodone-acetaminophen (NORCO) 5-325 mg per tablet 90 tablet 0 Sig: Take 1 tablet by mouth three times a day as needed for pain for up to 30 days. Temporary increase to TID for x1 month on 12/10/2023 meloxicam (MOBIC) 15 mg tablet 30 tablet 1 Sig: Take 1 tablet by mouth once daily as needed for pain. With food. Date of last office visit in primary care: 12/10/2023 Date of next office visit in primary care: 02/11/2024 Please advise. Thank you. Rosa Elena Deluca LPN. [facility]-06-[facility] Telephone encounter Note* Telephone Encounter - Rosa Elena Deluca LPN - 02/07/2024 3:36 PM EDT Patient has been identified by name and date of : Yes, Patient phones for refill(s): Requested Prescriptions Pending Prescriptions Disp Refills hydrOXYzine HCl (ATARAX) 25 mg tablet 30 tablet 3 Sig: Take 1-2 tablets by mouth at bedtime as needed. blood sugar diagnostic (FREESTYLE LITE STRIPS) test strip 50 Strip 3 Sig: Test blood sugar(s) 4 times daily. Dx: Other DM Code E11.40 Insulin: Yes Date of last office visit in primary care: 12/10/2023 Date of next office visit in primary care: 02/11/2024 Please advise. Thank you. Rosa Elena Deluca LPN. [facility]-06-[facility] Miscellaneous Notes* Telephone Encounter - Rosa Elena Deluca LPN - 02/07/2024 3:36 PM EDT Patient has been identified by name and date of : Yes, Patient phones for refill(s): Requested Prescriptions Pending Prescriptions Disp Refills hydrOXYzine HCl (ATARAX) 25 mg tablet 30 tablet 3 Sig: Take 1-2 tablets by mouth at bedtime as needed. blood sugar diagnostic (FREESTYLE LITE STRIPS) test strip 50 Strip 3 Sig: Test blood sugar(s) 4 times daily. Dx: Other DM Code E11.40 Insulin: Yes Date of last office visit in primary care: 12/10/2023 Date of next office visit in primary care: 02/11/2024 Please advise. Thank you. Rosa Elena Deluca LPN. documented in this encounterK[facility]05-06-2024 Telephone encounter Note * Telephone Encounter - Mayte Vinson - 02/07/2024 3:24 PM EDT Patient has been identified by name and date of : Yes Requested Prescriptions Pending Prescriptions Disp Refills furosemide (LASIX) 20 mg tablet 7 tablet 0 Sig: Take 1 tablet by mouth once daily. HYDROcodone-acetaminophen (NORCO) 5-325 mg per tablet 90 tablet 0 Sig: Take 1 tablet by mouth three times a day as needed for pain for up to 30 days. Temporary increase to TID for x1 month on 12/10/2023 meloxicam (MOBIC) 15 mg tablet 30 tablet 1 Sig: Take 1 tablet by mouth once daily as needed for pain. With food. RX INSTRUCTIONS: Patient aware RX will be sent to pharmacy. No need to notify patient. Mayte Vinson [facility]05-06-[facility] Telephone encounter Note* Telephone Encounter - Carolina Cordova MA - 02/07/2024 3:21 PM EDT Patient has been identified by name and date of : Yes Patient phones for refill(s): Requested Prescriptions Pending Prescriptions Disp Refills empagliflozin (JARDIANCE) 25 mg tablet 90 tablet 3 Sig: Take 1 tablet by mouth daily with breakfast. hydroCHLOROthiazide 50 mg tablet 30 tablet 2 Sig: Take 1 tablet by mouth once daily. Date of last office visit in primary care: 12/10/2023 Date of next office visit in primary care: 02/07/2024 Please advise. Thank you. Carolina Cordova MA. T [facility]05-06-2024 Miscellaneous Notes* Telephone Encounter - Carolina Cordvoa MA - 02/07/2024 3:21 PM EDT Patient has been identified by name and date of : Yes Patient phones for refill(s): Requested Prescriptions Pending Prescriptions Disp Refills empagliflozin (JARDIANCE) 25 mg tablet 90 tablet 3 Sig: Take 1 tablet by mouth daily with breakfast. hydroCHLOROthiazide 50 mg tablet 30 tablet 2 Sig: Take 1 tablet by mouth once daily. Date of last office visit in primary care: 12/10/2023 Date of next office visit in primary care: 02/07/2024 Please advise. Thank you. Carolina Cordova MA. documented in this encounterK[facility]05-06-2024 Telephone encounter Note * Telephone Encounter - Carolina Cordova MA - 02/07/2024 8:53 AM EDT Pt needs to contact office. [facility] Miscellaneous Notes* Telephone Encounter - Carolina Cordova MA - 02/07/2024 8:53 AM EDT Pt needs to contact office. documented in this encounterK[facility]05-01-2024 History of Present illness Narrative* Addi Ng RT(R) - 02/02/2024 1:20 PM EDT Radiology Service Progress Note PATIENT NAME: Samantha Romero DATE OF SERVICE: February 02, 2024 TIME: 3:16 PM PATIENT IDENTITY VERIFICATION COMPLETED USING TWO (2) IDENTIFIERS: Name and Date of confirmedby patient verbally. FALL SCREENING: Has the patient had 2 falls in the last year or 1 fall with injury or currently using an Ambulatory Assistive Device (Walker, Cane, Wheelchair, Crutches, etc.)? No PATIENT GENDER DATA: Female. status: : No status: NO. PATIENT RELEVANT IMPLANT DATA REVIEWED: Yes PATIENT PRESENTS WITH AN IMPLANTABLE OR ATTACHED VENDING MACHINE FILLER: No RADIOLOGY DEPARTMENT: CT; Exam(s) Completed: Chest PERIPHERAL IV DATA: Not applicable SIGNED BY: RT Mallika(R) February 02, 2024 3:16 PM documented in this encounterK[facility]04-10-2024 Miscellaneous Notes* Telephone Encounter - Sarina Adams MD - 01/12/2024 6:35 PM EDT The following approved medication requests have been transmitted electronically. Requested Prescriptions Signed Prescriptions Disp Refills HYDROcodone-acetaminophen (NORCO) 5-325 mg per tablet 90 tablet 0 Sig: Take 1 tablet by mouth three times a day as needed for pain for up to 30 days. Temporary increase to TID for x1 month on 12/10/2023 Authorizing Provider: SARINA ADAMS MD * Telephone Encounter - Brooke Ridley - 01/12/2024 4:34 PM EDT Patient is calling to check on the status of her Reynolds. Please send to pharmacy. * Telephone Encounter - Mara Degroot LPN - 01/10/2024 4:39 PM EDT Patient has been identified by name and date of : Yes, Provider Hima Date 01/10/24 Time 4:40pm Patient phones for refill(s): Requested Prescriptions Pending Prescriptions Disp Refills HYDROcodone-acetaminophen (NORCO) 5-325 mg per tablet 90 tablet 0 Sig: Take 1 tablet by mouth three times a day as needed for pain for up to 30 days. Temporary increase to TID for x1 month on 12/10/2023 Date of last office visit in primary care: 12/10/2023 Date of next office visit in primary care: 02/11/2024 Please advise. Thank you. Mara Degroot LPN. documented in this encounterK[facility]04-05-2024 Miscellaneous Notes* Telephone Encounter - Jarrod Buckley MA - 01/07/2024 3:00 PM EDT Requested Prescriptions Pending Prescriptions Disp Refills furosemide (LASIX) 20 mg tablet 7 tablet 0 Sig: Take 1 tablet by mouth once daily. Date of last office visit in primary care: 12/10/2023 Date of next office visit in primary care: 02/11/2024 Please advise. Thank you. Jarrod Buckley MA. documented in this encounterK[facility]04-01-2024 History of Present illness Narrative* Kay Paredes APRN.ADVISORY SOFTWARE ENGINEER - 01/03/2024 1:46 PM EDT Images from the original note were not included. LUNG SCREENING VISIT PRIMARY CARE PHYSICIAN: Sarina Adams MD PULMONARY PROVIDER: Brooke CIFUENTES Results will be communicated via letter or electronic record if applicable. Visit Delivery: In Person Patient Visit Type: New to Screening Current or Ex-smoker? ex Exam Type: baseline LDCT Number of Pack Years: 37 Current smoker (=0) or Number of Years since Quit: 7 REQUESTER: The referring provider advised the patient to have screening. HISTORY OF PRESENT ILLNESS: Samantha Romero is a 58 year old Former smoker who presents for lung screening. On 2L of oxygen during day on 3-4L when sleeping Respiratory symptoms include: SOB: Yes, sometimes Chest tightness: Yes once in a while Coughing: No Hemoptysis: No Wheezing: No Fever/Chills: No Recent Respiratory Infection: NoCOVID 2 years ago Unintentional weight loss: No Last 6 Encounter Wt Readings: Date: Wt: 01/03/2024 107 kg (236 lb) 12/10/2023 106.1 kg (234 lb) 12/10/2023 106.2 kg (234 lb 3.2 oz) 12/01/2023 108 kg (238 lb) 10/28/2023 104.3 kg (230 lb) 10/11/2023 101.2 kg (223 lb) ECOG PERFORMANCE STATUS: 3- Capable of only limited selfcare, confined to bed/chair > 50% of waking hrs. Modified Medical Research [place] Dyspnea Scale (MMRC) I am too breathless to leave the house or I am breathless when dressing 4 PAST MEDICAL HISTORY Diagnosis Date Chronic hypoxemic respiratory failure (HCC) COVID-19 07/06/2021 HTN (hypertension) Hyperlipidemia 04/05/2014 Hypothyroid 04/19/2014 Kidney stone on left side 04/12/2014 Myasthenia gravis (HCC) OA (osteoarthritis) of hip, bilateral 04/04/2014 Type II or unspecified type diabetes mellitus without mention of complication, uncontrolled 04/05/2014 PAST SURGICAL HISTORY Procedure Laterality Date ESWL 04/25/14 kidney stones ESWL 05/16/14 kidney stones. PAST SURGICAL HISTORY OF c-sections x 2 PAST SURGICAL HISTORY OF appendectomy PAST SURGICAL HISTORY OF tubal ligation REMV CATARACT EXTRACAP,INSERT LENS Left 06/12/2021 Monofocal IOL 17.5 D XCAPSL CTRC RMVL INSJ IO LENS PROSTH W/O ECP Right 05/29/2021 FAMILY HISTORY Problem Relation Age of Onset Diabetes Mother Cervical Cancer Sister Diabetes Brother Cancer Maternal Grandmother Stomach CA Breast Cancer Maternal Aunt 50's Insulin Boerne, Disposable, (DROPLET PEN NEEDLE) 31 gauge x /16^use 1 PEN NEEDLE to inject MEDICATION subcutaneously four times a day^Disp: 200 Each^Rfl: 2 meloxicam (MOBIC) 15 mg tablet^Take 1 tablet by mouth once daily as needed for pain. With food.^Disp: 30 tablet^Rfl: 1 HYDROcodone-acetaminophen (NORCO) 5-325 mg per tablet^Take 1 tablet by mouth three times a day as needed for pain for up to 30 days. Temporary increase to TID for x1 month on 12/10/2023^Disp: 90 tablet^Rfl: 0 dulaglutide (TRULICITY) 4.5 mg/0.5 mL pen injector^Inject 4.5 mg subcutaneously one time a week.^Disp: 4 Each^Rfl: 2 insulin degludec (TRESIBA FLEXTOUCH U-100) 100 unit/mL (3 mL) injection pen^Inject 70 Units subcutaneously daily at bedtime.^Disp: 60 mL^Rfl: 3 furosemide (LASIX) 20 mg tablet^Take 1 tablet by mouth once daily.^Disp: 7 tablet^Rfl: 0 fluticasone (FLONASE) 50 mcg/actuation nasal spray^Use 1-2 Sprays in each nostril once daily as needed.^Disp: 1 Each^Rfl: 11 hydrOXYzine HCl (ATARAX) 25 mg tablet^Take 1-2 tablets by mouth at bedtime as needed.^Disp: 30 tablet^Rfl: 3 blood sugar diagnostic (FREESTYLE LITE STRIPS) test strip^Test blood sugar(s) 4 times daily. Dx: Other DM Code E11.40 Insulin: Yes^Disp: 50 Strip^Rfl: 3 PEG 400-propylene glycol (SYSTANE ULTRA) 0.4-0.3 % ophthalmic solution^Use 1 Drop in both eyes fourtimes daily.^Disp: 15 mL^Rfl: 4 (Patient taking differently: Use 1 Drop in both eyes four times daily. Uses three times daily) gabapentin (NEURONTIN) 600 mg tablet^Take 1 tablet by mouth two times a day for 180 days.^Disp: 60 tablet^Rfl: 5 omeprazole (PRILOSEC) 40 mg capsule^take 1 capsule by mouth once daily^Disp: 30 capsule^Rfl: 5 potassium chloride SR (MICRO-K) 10 mEq CR capsule^Take 1 capsule by mouth once daily.^Disp: 7 capsule^Rfl: 0 hydroCHLOROthiazide 50 mg tablet^Take 1 tablet by mouth once daily.^Disp: 30 tablet^Rfl: 2 Cholecalciferol, Vitamin D3, 125 mcg (5,000 unit) cap^Take 1 capsule by mouth once daily.^Disp: 90 capsule^Rfl: 2 flash glucose sensor (FREESTYLE TAYLOR 14 DAY SENSOR) kit^Use to check blood sugar 4 times daily. Please give 2 sensors per refill^Disp: 2 Kit^Rfl: 5 insulin aspart U-100 (NOVOLOG) 100 unit/mL (3 mL)^INJECT 20 UNITS SUBCUTANEOUSLY WITH MEALS THREE TIMES A DAY PLUS SLIDING SCALE #2 BASED ON PRE-MEAL BLOOD SUGAR (AROUND 80 UNITS PER DAY)^Disp: 60mL^Rfl: 3 levothyroxine (SYNTHROID) 200 mcg tablet^Take 1 tablet by mouth daily before breakfast.^Disp: 90 tablet^Rfl: 3 blood sugar diagnostic (BLOOD GLUCOSE TEST) test strip^Test blood sugar(s) 4 times daily. Dx: Type 2 DM - Controlled E11.9 Insulin: Yes^Disp: 200 Strip^Rfl: 11 OXYGEN, HOME THERAPY,^Inhale as instructed as directed. Uses at 2 l/m via nasal cannula during the day and 4 l/m at night^Disp: ^Rfl: hydrocortisone 2.5 % cream^Apply 1 application to affected area twice daily. Location: hands and chest^Disp: 20 g^Rfl: 0 (Patient taking differently: Apply 1 application to affected area two times a day. Location: hands and chest Uses as needed) Blood-Glucose Meter monitoring kit^Check sugars daily and as needed (Freestyle Lite is what she hashad)^Disp: 1 Each^Rfl: 0 rosuvastatin (CRESTOR) 10 mg tablet^Take 1 tablet by mouth daily at bedtime.^Disp: 30 tablet^Rfl: 11 lisinopril 2.5 mg tablet^Take 1 tablet by mouth once daily.^Disp: 90 tablet^Rfl: 3 Lancets lancets^Test blood sugar(s) 4 times daily. Dx: E11.9 Insulin: Yes^Disp: 200 Each^Rfl: 11 (Patient taking differently: Test blood sugar(s) 4 times daily. Dx: E11.9 Insulin: Yes Uses as needed) empagliflozin (JARDIANCE) 25 mg tablet^Take 1 tablet by mouth daily with breakfast.^Disp: 90 tablet^Rfl: 3 Fenofibrate (LOFIBRA) 160 mg tablet^Take 1 tablet by mouth once daily.^Disp: 30 tablet^Rfl: 11 clotrimazole-betamethasone (LOTRISONE) cream^Apply 1 application to affected area twice daily. X 2 weeks.^Disp: 45 g^Rfl: 0 (Patient taking differently: Apply 1 application to affected area two timesa day. X 2 weeks. Uses as needed) dicyclomine (BENTYL) 10 mg capsule^Take 1 capsule by mouth before meals and at bedtime. for abdominal pain^Disp: 120 capsule^Rfl: 5 Miscellaneous Medical Supply (BLOOD PRESSURE CUFF)^1 Each as needed. Blood pressure Monitor and Cuff, use as directed. Dx: I10 Hypertension^Disp: 1 Each^Rfl: 0 flash glucose scanning reader (FREESTYLE TAYLOR 14 DAY READER)^Use to check blood sugar 4 times daily^Disp: 1 Each^Rfl: 0 estradiol (ESTRACE) 0.01 % (0.1 mg/gram) vaginal cream^Use 3 g vaginally two times a week.^Disp: 42.5 g^Rfl: 6 peg 400-propylene glycol (SYSTANE GEL) 0.4-0.3 % drpg^Use 1 Drop in both eyes daily at bedtime.^Disp: 10 mL^Rfl: 2 blood sugar diagnostic (BLOOD GLUCOSE TEST) test strip^Test blood sugar(s) 4 times daily. Dx: OtherDM Code E11.40 Insulin: Yes^Disp: 50 Strip^Rfl: 11 ALLERGIES Allergen Reactions Metformin Diarrhea Diarrhea every time takes, even with ER dose Oxycodone GI Upset Percocet [Oxycodone* GI Upset and off balance The medications and allergies were reviewed and reconciled for this patient and deemed current. Lung Cancer Risk Factors: 1.Tobacco Use: Start Age 14, Quit Age: 51, Average packs per day 1, Pack Years 37 2. Passive Smoke Exposure: Yes, as a Child and as an Adult 3. Personal hx of malignancy: No, Type of Cancer: 4. Significant exposures (1 year or more of exposure): None, 5. Race: White 6. Education: Less than High School 7. BMI:Body mass index is 40.51 kg/m . Patient-entered Height: 5'4 Patient-entered Weight: 236 pounds 8. COPD: Yes 9. Pneumonia in the past 5 years: No 10. Is there a history of lung cancer in a first degree relative? No 11. Is there a history of lung cancer in a non-first degree relative? No 12. Is there a history of any other cancer in a first degree relative? Yes Health Maintenance Immunization History Administered Date(s) Administered pneumococcal polysaccharide (PPV23) vaccine, 23 valent (PNEUMOVAX 23) 04/19/2014 tetanus diphtheria (Td) vaccine, age 7+ yr, 5 Lf tetanus, PF (TENIVAC) 06/25/2015 tetanus diphtheria pertussis (Tdap) vaccine, age 7+ yr (ADACEL, BOOSTRIX) 06/26/2015 Deferred Date(s) Deferred influenza (IIV4) vaccine, age 6 mo - 64 yr, quadrivalent (AFLURIA, FLULAVAL, FLUZONE) 07/22/2023 Colonoscopy: Mammogram: 03/23/2014 DATA REVIEW I have directly visualized the testing documented: Prior Imaging: Last CT/CTA Chest/Lungs CT CHEST WO IVCON Exam End: 07/17/2022 1:26 PM (Final result) Narrative: * * *Final Report* * * DATE OF EXAM: Jul 17 2022 1:25PM [facility] 0541 - CT CHEST WO IVCON / PROCEDURE REASON: Malignant neoplasm of thymus (HCC) * * * * Physician Interpretation * * * * EXAMINATION: CHEST CT WITHOUT CONTRAST CLINICAL HISTORY: Myasthenia gravis Technique: Spiral CT acquisition of the chest from the thoracic inlet to the upper abdomen without contrast. MQ: [id number] CT Radiation dose: Integrated Dose-length product (DLP) for this visit = 245 mGy*cm CT Dose Reduction Employed: Automated exposure control(AEC) and iterative recon Comparison: 07/09/2015 RESULT: Limitations: None. Lines, tubes, and devices: None. Lung parenchyma and airways: No consolidation. Bronchiectasis .. Left lung base bleb of approximately 4 cm. Thin-walled. Increased from prior study Linear indeterminate density is likely atelectasis or fibrosis. Calcified granulomata. No developing or suspicious pulmonary nodule. The central airways are patent. Pleural space: No pleural effusion. No pleural thickening. Lower neck, lymph nodes, and mediastinum: The imaged thyroid gland is normal. Calcified nodes are consistent with remote granulomatous disease. No developing lymphadenopathy in the supraclavicular, axillary, mediastinal, or hilar regions. Heart, pericardium, and thoracic vessels: The thoracic aorta and main pulmonary artery are normal in caliber. The cardiac chambers are normal in size. No coronary artery atherosclerotic calcifications are noted, although the study is not optimized for coronary assessment. Small amount of pericardial fluid Bones and soft tissues: No destructive bone lesion. Chest wall is unremarkable. Upper abdomen: The spleen is enlarged. Calcifications in the spleen are consistent with remote granulomatous disease Thoroughbred Horse Farm Manager (topogram) images: No additional findings. Impression: IMPRESSION: Bronchiectasis. Left lung base bleb Evidence of remote granulomatous disease. Pericardial effusion. No developing suspicious mass or adenopathy. No evidence of thymic mass. Solidworks Drafter: PSCB Transcribe Date/Time: Jul 21 2022 3:00P Dictated by : ANASTASIIA CONTRERAS MD This examination was interpreted and the report reviewed and electronically signed by: ANASTASIIA CONTRERAS MD on Jul 21 2022 3:07PM EST Last CT Chest - Impression Only CT CHEST WO IVCON Exam End: 07/17/2022 1:26 PM (Final result) Impression: IMPRESSION: Bronchiectasis. Left lung base bleb Evidence of remote granulomatous disease. Pericardial effusion. No developing suspicious mass or adenopathy. No evidence of thymic mass. ... Last XR Chest - Impression Only XR CHEST 2V FRONTAL/LAT Exam End: 05/19/2023 3:13 PM (Final result) Impression: IMPRESSION: Reticular and linear opacities in the bilateral lungs. Stable calcified right lung nodule. ... Pulmonary Function Testing: No textual results found for the specified procedure(s). PHYSICAL EXAM:BP 106/60 (BP Site: Right Arm, BP Position: Sitting, BP Cuff Size: Regular Adult) Pulse 70 Resp 14 Ht 162.6 cm (5' 4) Wt 107 kg (236 lb) LMP 04/27/2016 SpO2 96% BMI 40.51kg/m patient is in wheelchair Deferred ASSESSMENT and RECOMMENDATIONS: 1. Screening for lung cancer: Six year risk for lung cancer: 1.23% [email or web address] I have determined that the patient is eligible for a low dose CT based on age, absence of signs or symptoms of lung cancer, and total pack years: Yes. The patient and I engaged in shared decision making, including the use of one or more decision aids, to include benefits, harms, follow-up diagnostic testing, over-diagnosis, false positive rate, andtotal radiation exposure. The patient understands and feels comfortable with it: Yes. The patient was counseled on the importance of adherence to annual LDCT lung cancer screening, impact of comorbidities and ability or willingness to undergo diagnosis and treatment. The patient understands and feels comfortable with it:Yes. 2. Nicotine dependence: The patient was counseled on the importance of maintaining cigarette smoking abstinence - The patient is committed to remaining abstinent from tobacco. Kay Paredes APRN.CNP NPI #: January 03, 2024 1:49 PM documented in this encounterK[facility]-2024 Instructions* Patient Instructions* Kay Paredes APRN.KENDAL - 01/03/2024 1:[address] Lung Screen Results The CT scan that you will have done will show if you have any nodules (small spots) in your lungs that are suspicious for cancer. Around 90% of the patients who have this scan done are found to have at least one nodule. Most nodules are benign (not cancer) and of no harm to you at all. A specialistwill make a scientific evaluation about whether or not a nodule is worrisome based on its size and shape. The radiologist who will read your scan will put it into one of four categories: LUNG-RADS Category Description Overall Probability of Malignancy Recommended Follow-Up 1 Negative No nodules and definitely benign (non-cancerous nodules) Essentially 0. 1 Year - Follow-up Low dose CT 2 Benign Appearance or Behavior Nodules with a very low likelihood of becoming cancer due to size or lack of growth Less than 1% 1 Year - Follow-up Low dose CT 3 Probably Benign Probably benign finding, short term follow-up recommended 1 to 2% 6 Months - Follow-up Low dose CT 4 Suspicious Findings for which additional diagnostic testing and/or biopsy is recommended Will be calculated based on nodule characteristics. Dependent on what is seen on the exam. (3 month follow-up CT, PET-CT, or biopsy) 0 Incomplete Findings suggestive of an inflammatory or infectious process AND/OR part of the lung cannot be evaluated Additional lung cancer screening CT imaging needed AND/OR comparison with prior chest CT imaging At times, we may see something outside of the lungs on the scan that could be a health concern. Below are some of the most common findings: S Clinically Significant or Potentially Clinically Significant Findings (non lung cancer) Referral or additional imaging/labs depending on result. Approximately 10% of people receive this result. Coronary Artery Calcifications (Moderate or Severe) - Referral to cardiology for further work-up and recommendations. Thyroid Nodule - TSH level and Thyroid Ultrasound dependent on size, referral to endocrinology. Adrenal Nodule - blood work and referral to endocrinology. Others Lung Cancer Screening hotline: [phone] Lung Cancer Screening [phone] Billing Questions: or [email or web address] Specialist Providers: (Haylee Reno PA-C; Madison Adan CNP; Aida Mckinney CNP, Citlaly Krishna ADVISORY SOFTWARE ENGINEER; Addi Dubois CNP; NITZA Owens; Kay Paredes CNP; Jacquelin Snell CNP; Makeda Sutton ADVISORY SOFTWARE ENGINEER; Mary Ann Babb ADVISORY SOFTWARE ENGINEER; Kathi Portillo PA-C; Humaira Zarate PA-C; Rosita Fermin CNP; Baylee French ADVISORY SOFTWARE ENGINEER; Alicja Walsh [facility]): [phone] documented in this encounterK[facility]03-14-2024 Miscellaneous Notes* Telephone Encounter - Kristen Bronson LPN - 12/16/2023 1:59 PM EDT Patient has been identified by name and date of : Yes, Provider Dr. Means Date 12/16/23 Time 2 pm Pharmacy phones for refill(s): Requested Prescriptions Pending Prescriptions Disp Refills Insulin [place], Disposable, (DROPLET PEN NEEDLE) 31 gauge x 3/16 [Pharmacy Med Name: DROPLET PEN NEEDLE 31GX3/16] Sig: use 1 PEN NEEDLE to inject MEDICATION subcutaneously four times a day Date of last office visit in primary care: 12/10/23 Date of next office visit in primary care: 02/11/24 Thank you. Kristen Bronson LPN. documented in this encounterK[facility]03-08-2024 Procedure note* Aby Mancuso RPFT - 12/10/2023 2:37 PM ESTAssociated Order(s): OXIMETRY WITH AMBULATION RESPIRATORY THERAPY OXIMETRY WITH AMBULATION Oximetry with Ambulation Test for This Encounter O2 Device O2 Adapter NC O2 Flow SpO2% HR Activity Ft Walked (ft) Time (min) Avg Speed (MPH) R/A 95 78 Resting R/A 95 94 Walking, usual pace 260 3 0.98 General Information Pulse Oximetry Site Total Time Spent Walking Assistance/O2 Supply Carrier Forehead 30 Wheeled Walker NAME: DENIS Burgess PATIENT NAME: Samantha Romero DATE: December 10, 2023 TIME: 2:37 PM Comment: Patient unable to walk at faster pace documented in this encounterKet[facility]03-08-2024 History of Present illness Narrative* Aby Mancuso RPFT - 12/10/2023 2:22 PM EST PULM FUNCTION SMARTBLOCK: Provider: Brooke Be PA-C Assisting Tech: Aby Mancuso RPFT Spirometry: 1 DLCO: 1 Oximetry - Ambulation: 1 documented in this encounterK[facility]03-08-2024 Miscellaneous Notes* Telephone Encounter - Maylin Delaney LPN - 12/10/2023 1:24 PM EST Images from the original note were not included. Electronic PA rec'dd and completed for tresaleemba. This was approved. Prior authorization approved Payer: [facility] Your PA request for [id number] was approved for 365 days. The PA# assigned is [id number]. Approval Details Authorization number: [id number] Authorized from December 10, 2023 to December 08, 2024 Electronic appeal: Not supported View History Medication Being Authorized insulin degludec (TRESIBA FLEXTOUCH U-100) 100 unit/mL (3 mL) injection pen Inject 70 Units subcutaneously daily at bedtime. 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 To be filled at: [id number] [place] [address] - [address] [facility] [phone] [id number] documented in this encounterKet[facility]03-08-2024 History of Present illness Narrative* Cole Bower APRN.ADVISORY SOFTWARE ENGINEER - 12/10/2023 1:00 PM EST SUBJECTIVE Samantha Romero is a 58 year old female here today for a check up on her medical problems. Chief Complaint Patient presents with: Follow Up HPI Samantha Romero is a 58 year old female. She is an established patient of Sarina Adams MD. She presents today for routine follow up. History of DM, chronic SI pain/back pain, hypothyroidism, vitamind def. Last labs were done 10/11. Hgba1c is elevated at 12.2, vitamin d low at 15.9 She recently had a fall. Pain has been worse since the fall. Pain in the low back. On norco for pain. Asking for a short term increase to TID from BID because pain is limiting ability to do ADLs and causing disruption in life, poor quality of life because of the increased pain. She really is just not feeling great. Planning to do her low dose lung Ct soon. Lung function testing later today. Samantha Romero is a 58 year old female here today for a check up on her diabetes. She is compliant on taking her medications :Yes She has been checking fingerstick blood sugars: YesHer blood sugars have been controlled? No, running 200's Any low blood sugar reactions? No Denies increased urinating, eating, and drinking. Most recent HbA1c tests were: Lab Results Component Value Date HBA1C 12.2 (H) 10/11/2023 HBA1C 12.6 (H) 06/28/2023 HBA1C 12.4 (H) 03/26/2023 Her medications were reviewed today and her list is now up to date. Medications Current Outpatient Medications Medication Sig furosemide (LASIX) 20 mg tablet Take 1 tablet by mouth once daily. fluticasone (FLONASE) 50 mcg/actuation nasal spray Use 1-2 Sprays in each nostril once daily as needed. hydrOXYzine HCl (ATARAX) 25 mg tablet Take 1-2 tablets by mouth at bedtime as needed. blood sugar diagnostic (FREESTYLE LITE STRIPS) test strip Test blood sugar(s) 4 times daily. Dx: Other DM Code E11.40 Insulin: Yes PEG 400-propylene glycol (SYSTANE ULTRA) 0.4-0.3 % ophthalmic solution Use 1 Drop in both eyes fourtimes daily. peg 400-propylene glycol (SYSTANE GEL) 0.4-0.3 % drpg Use 1 Drop in both eyes daily at bedtime. gabapentin (NEURONTIN) 600 mg tablet Take 1 tablet by mouth two times a day for 180 days. omeprazole (PRILOSEC) 40 mg capsule take 1 capsule by mouth once daily potassium chloride SR (MICRO-K) 10 mEq CR capsule Take 1 capsule by mouth once daily. hydroCHLOROthiazide 50 mg tablet Take 1 tablet by mouth once daily. Cholecalciferol, Vitamin D3, 125 mcg (5,000 unit) cap Take 1 capsule by mouth once daily. flash glucose sensor (FREESTYLE TAYLOR 14 DAY SENSOR) kit Use to check blood sugar 4 times daily. Please give 2 sensors per refill blood sugar diagnostic (BLOOD GLUCOSE TEST) test strip Test blood sugar(s) 4 times daily. Dx: OtherDM Code E11.40 Insulin: Yes insulin aspart U-100 (NOVOLOG) 100 unit/mL (3 mL) INJECT 20 UNITS SUBCUTANEOUSLY WITH MEALS THREE TIMES A DAY PLUS SLIDING SCALE #2 BASED ON PRE-MEAL BLOOD SUGAR (AROUND 80 UNITS PER DAY) Insulin Boerne, Disposable, (DROPLET PEN NEEDLE) 31 gauge x 3/16 use 1 PEN NEEDLE to inject MEDICATION subcutaneously four times a day levothyroxine (SYNTHROID) 200 mcg tablet Take 1 tablet by mouth daily before breakfast. blood sugar diagnostic (BLOOD GLUCOSE TEST) test strip Test blood sugar(s) 4 times daily. Dx: Type 2 DM - Controlled E11.9 Insulin: Yes OXYGEN, HOME THERAPY, Inhale as instructed as directed. Uses at 2 l/m via nasal cannula during the day and 4 l/m at night hydrocortisone 2.5 % cream Apply 1 application to affected area twice daily. Location: hands and chest (Patient taking differently: Apply 1 application to affected area two times a day. Location: hands and chest Uses as needed) Blood-Glucose Meter monitoring kit Check sugars daily and as needed (Freestyle Lite is what she hashad) rosuvastatin (CRESTOR) 10 mg tablet Take 1 tablet by mouth daily at bedtime. lisinopril 2.5 mg tablet Take 1 tablet by mouth once daily. empagliflozin (JARDIANCE) 25 mg tablet Take 1 tablet by mouth daily with breakfast. Fenofibrate (LOFIBRA) 160 mg tablet Take 1 tablet by mouth once daily. clotrimazole-betamethasone (LOTRISONE) cream Apply 1 application to affected area twice daily. X 2 weeks. (Patient taking differently: Apply 1 application to affected area two times a day. X 2 weeks. Uses as needed) dicyclomine (BENTYL) 10 mg capsule Take 1 capsule by mouth before meals and at bedtime. for abdominal pain Miscellaneous Medical Supply (BLOOD PRESSURE CUFF) 1 Each as needed. Blood pressure Monitor and Cuff, use as directed. Dx: I10 Hypertension flash glucose scanning reader (HeyLets TAYLOR 14 DAY READER) Use to check blood sugar 4 times daily meloxicam (MOBIC) 15 mg tablet Take 1 tablet by mouth once daily as needed for pain. With food. HYDROcodone-acetaminophen (NORCO) 5-325 mg per tablet Take 1 tablet by mouth three times a day as needed for pain for up to 30 days. Temporary increase to TID for x1 month on 12/10/2023 dulaglutide (TRULICITY) 4.5 mg/0.5 mL pen injector Inject 4.5 mg subcutaneously one time a week. insulin degludec (TRESIBA FLEXTOUCH U-100) 100 unit/mL (3 mL) injection pen Inject 70 Units subcutaneously daily at bedtime. Lancets lancets Test blood sugar(s) 4 times daily. Dx: E11.9 Insulin: Yes (Patient not taking: Reported on 12/01/2023) estradiol (ESTRACE) 0.01 % (0.1 mg/gram) vaginal cream Use 3 g vaginally two times a week. Current Facility-Administered Medications Medication Dose Route Frequency sodium chloride 0.9 % (flush) 10 mL (BD POSIFLUSH) 10 mL INTRAVENOUS DIRECTED PRN sodium chloride 0.9 % (flush) 10 mL (BD POSIFLUSH) 10 mL INTRAVENOUS DIRECTED PRN sodium chloride 0.9 % (flush) 10 mL (BD POSIFLUSH) 10 mL INTRAVENOUS DIRECTED PRN ALLERGIES Allergen Reactions Metformin Diarrhea Diarrhea every time takes, even with ER dose Oxycodone GI Upset Percocet [Oxycodone* GI Upset and off balance ACTIVE PROBLEM LIST Hypothyroid - 04/19/2014 (A priority) Diabetic Eye Exam (Hcc) - 04/05/2014 (A priority) Hyperlipidemia - 04/05/2014 (A priority) Kidney Stone On Left Side - 04/12/2014 (C priority) Comment: Dr. Ahs is her doctor. Routine Gynecological Examination - 04/04/2014 (D priority) Comment: Seeing Dr. Deluca. Pericardial Effusion - 01/25/2023 Obesity, Class II, Bmi 35-39.9 - 01/25/2023 Obesity, Class III, BMI >= 40 - 12/18/2022 Gastroesophageal Reflux Disease - 10/19/2022 Chronic Midline Low Back Pain - 10/19/2022 Esophageal Dysphagia - 10/19/2022 Gastroesophageal Reflux Disease With Esophagitis Without Hemorrhage - 10/19/2022 Comment: Intermittent reflux Myasthenia Gravis ([facility]) - 07/30/2022 Type 2 Diabetes Mellitus With Diabetic Neuropathy, With Long-Term Current Use of Insulin ([facility]) - 07/30/2022 Bilateral Leg Edema - 07/30/2022 Comment: worse on left Dysuria - 07/30/2022 Comment: Follow up with gynecology 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 Chronic Hypoxemic Respiratory Failure ([facility]) - 12/09/2021 Pneumonia Due to Covid-19 Virus - 08/05/2021 Status Post Cataract Extraction and Insertion of Intraocular Lens of Right Eye - 06/03/2021 Combined Forms of Age-Related Cataract of Left Eye - 05/09/2021 Type 2 Diabetes Mellitus With Moderate Nonproliferative Diabetic Retinopathy With Macular Edema ([facility]) - 05/09/2021 Type 2 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 Macular Edema, Without Long-Term Current Use of Insulin ([facility]) - 05/09/2021 Uncontrolled Type 2 Diabetes With Neuropathy - 08/20/2015 Abnormally Small Mouth - 06/24/2015 Essential Hypertension - 06/24/2015 Obesity - 06/24/2015 Thrombocytopenia ([facility]) - 06/24/2015 Noncompliance - 10/17/2014 OA (osteoarthritis) of hip, bilateral - 04/04/2014 Social History Tobacco Use Smoking status: Former Packs/day: 1.00 Years: 30.00 Additional pack years: 0.00 Total pack years: 30.00 Types: Cigarettes Quit date: 11/04/2013 Years since quittin.1 Smokeless tobacco: Never Vaping Use Vaping Use: Never used Substance Use Topics Alcohol use: Not Currently Comment: wine cool every once in a while Drug use: No Review of Systems Constitutional: Positive for fatigue. Negative for chills, diaphoresis and fever. Respiratory: Negative for cough, chest tightness and wheezing. Cardiovascular: Negative. OBJECTIVE BP 132/64 Pulse 80 Resp 20 Wt 234 lb 3.2 oz (106.2kg) SpO2 96[2L NC]% LMP 04/27/2016 Physical Exam Vitals and nursing note reviewed. Constitutional: General: She is awake. She is not in acute distress. Appearance: She is well-developed and well-groomed. She is not ill-appearing, toxic-appearing or diaphoretic. HENT: Head: Normocephalic. Right Ear: External ear normal. Left Ear: External ear normal. Nose: Nose normal. Eyes: General: Vision grossly intact. Conjunctiva/sclera: Conjunctivae normal. Pupils: Pupils are equal, round, and reactive to light. Neck: Vascular: No JVD. Trachea: Trachea normal. Cardiovascular: Rate and Rhythm: Normal rate and regular rhythm. Pulses: Normal pulses. Heart sounds: Murmur heard. Pulmonary: Effort: Pulmonary effort is normal. No accessory muscle usage, prolonged expiration or respiratory distress. Breath sounds: Normal breath sounds. Musculoskeletal: Cervical back: Neck supple. Skin: General: Skin is warm and dry. Capillary Refill: Capillary refill takes less than 2 seconds. Neurological: General: No focal deficit present. Mental Status: She is alert and oriented to person, place, and time. Mental status is at baseline. Psychiatric: Attention and Perception: Attention and perception normal. Mood and Affect: Mood and affect normal. Speech: Speech normal. Behavior: Behavior normal. Behavior is cooperative. Thought Content: Thought content normal. Cognition and Memory: Cognition and memory normal. Judgment: Judgment normal. ASSESSMENT/PLAN: 1. 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) - ICD9: 250.50, 362.05, 362.07, ICD10: E11.3319 (primary diagnosis) Poorly controlled, increase Trulicity and increase Tresiba. - DULAGLUTIDE 4.5 MG/0.5 ML SUBCUTANEOUS PEN INJECTOR - INSULIN DEGLUDEC (U-100) 100 UNIT/ML (3 ML) SUBCUTANEOUS PEN - HGB A1C 2. Post-COVID chronic dyspnea - ICD9: 786.09, 139.8, ICD10: R06.09, U09.9 Following with pulmonary, PFTs today. 3. Chronic hypoxemic respiratory failure (HCC) - ICD9: 518.83, 799.02, ICD10: J96.11 On 2 l/m via n/c. 4. Vitamin D deficiency - ICD9: 268.9, ICD10: E55.9 - VITAMIN D 25 HYDROXY 5. Acquired hypothyroidism - ICD9: 244.9, ICD10: E03.9 6. Chronic midline low back pain, unspecified whether sciatica present - ICD9: 724.2, 338.29, ICD10: M54.50, G89.29 Short term increase in norco to TID. Will try to reduce back to BID if possible. - MELOXICAM 15 MG TABLET - HYDROCODONE 5 MG-ACETAMINOPHEN 325 MG TABLET 7. Chronic midline low back pain, unspecified whether sciatica present - ICD9: 724.2, 338.29, ICD10: M54.50, G89.29 - MELOXICAM 15 MG TABLET - HYDROCODONE 5 MG-ACETAMINOPHEN 325 MG TABLET 8. Chronic SI joint pain - ICD9: 724.6, 338.29, ICD10: M53.3, G89.29 - MELOXICAM 15 MG TABLET - HYDROCODONE 5 MG-ACETAMINOPHEN 325 MG TABLET 9. Encounter for therapeutic drug monitoring - ICD9: V58.83, ICD10: Z51.81 - CBC + DIFF - COMP METABOLIC PANEL OARRS reviewed and script is appropriate, non-opioids considered. Patient is aware of risks and benefits of opioid medications and their use, including but not limited to risk for addiction. Advised to take medication as prescribed and adhere to the dosing regimen and to use the least amount necessary for the shortest period of time. Discussed possible side effects including constipation. Advisedto use caution when operating heavy machinery and driving and to never share or sell medication. PDMP website checked and validated. All prescriptions have been APPROPRIATELY filled. No suspiciousactivity was identified. 12/10/2023 by Cole Bower APRN.ADVISORY SOFTWARE ENGINEER Portions of this note have been entered by ancillary staff. I have reviewed and when necessary edited, so that they are an adequate record of my encounter with this patient Please note that parts of this document were created using voice recognition software and therefore may contain grammatical errors. Patient verbalizes understanding of instructions from today's visit and in agreement with treatmentplan. Questions answered. Agrees to call the office if questions, concerns of issues with acute symptoms not improving or if they worsen. See diagnoses and orders for additional plan(s). Allergies and medications were reviewed, list was updated, and refills given if needed. Past medical, surgical, social, and family history reviewed and updated as appropriate. Encouraged proper diet & exercise as well as compliance with taking medications. Age- appropriate health preventative measures were discussed. Return in about 2 months (around 02/09/2024) for Follow up on chronic conditions and medications.. Cole Bower APRN-KENDAL documented in this [facility]03-06-2024 Miscellaneous Notes* Telephone Encounter - Jaylyn Vazquez LPN - 12/08/2023 3:53 PM EST Patient picked up RX today for Lasix. Jaylyn Vazquez LPN documented in this [facility]03-04-2024 Miscellaneous Notes* Telephone Encounter - Jaylyn Vazquez LPN - 12/06/2023 4:32 PM EST Patient has been identified by name and date of : Yes Patient phones for refill(s): Requested Prescriptions Pending Prescriptions Disp Refills furosemide (LASIX) 20 mg tablet 7 tablet 0 Sig: Take 1 tablet by mouth once daily. Date of last office visit in primary care: 10/28/2023 Date of next office visit in primary care: 12/06/2023 Please advise. Thank you. Jaylyn Vazquez LPN. documented in this [facility]03-04-2024 Miscellaneous Notes* Telephone Encounter - Jaylyn Vazquez LPN - 12/06/2023 4:02 PM EST Samantha our office did receive your refill request for Gabapentin (Neurontin) however a new prescription was sent 11/08/2023 for 60 tablets, 5 refills to [facility]. Please check with your pharmacy, you have refills remaining. Jaylyn Vazquez LPN [facility] History of Present illness Narrative* Brooke Be PA-C - 12/01/2023 1:31 PM EST Patient: Samantha Romero PCP: Sarina Adams MD CC: follow up HPI: Samantha Romero 58 year old female former smoker, 30 pack years (quitting 2013) with PMH significant for HTN, DM, hypothyroidism, HTN, myasthenia gravis, and history of Covid pna 07/2021. Required HFNC, dex/remdesivir/baricitinib and 4L supplemental oxygen at discharge. Today, patient states she is feeling more SOB than previously. She has difficulty climbing the 4 steps into her trailer, grocery shopping, and managing ADLs. Denies significant cough, sputum production or wheezing. Significantlower extremity edema. Gaining weight. She is taking her Lasix and Hydrochlorothiazide daily. No fevers, chills or night sweats. Currently wearing 2L supplemental oxygen continuously. DME: [employer]. PAST MEDICAL HISTORY Diagnosis Date Chronic hypoxemic respiratory failure (HCC) COVID-19 07/06/2021 HTN (hypertension) Hyperlipidemia 04/05/2014 Hypothyroid 04/19/2014 Kidney stone on left side 04/12/2014 Myasthenia gravis (HCC) OA (osteoarthritis) of hip, bilateral 04/04/2014 Type II or unspecified type diabetes mellitus without mention of complication, uncontrolled 04/05/2014 Allergies: Metformin Diarrhea Comment:Diarrhea every time takes, even with ER dose Oxycodone GI Upset Percocet [Oxycodone* GI Upset Comment:and off balance furosemide (LASIX) 20 mg tablet^Take 1 tablet by mouth once daily.^Disp: 7 tablet^Rfl: 0 HYDROcodone-acetaminophen (NORCO) 5-325 mg per tablet^Take 1 tablet by mouth two times a day as needed for pain for up to 30 days.^Disp: 60 tablet^Rfl: 0 fluticasone (FLONASE) 50 mcg/actuation nasal spray^Use 1-2 Sprays in each nostril once daily as needed.^Disp: 1 Each^Rfl: 11 hydrOXYzine HCl (ATARAX) 25 mg tablet^Take 1-2 tablets by mouth at bedtime as needed.^Disp: 30 tablet^Rfl: 3 PEG 400-propylene glycol (SYSTANE ULTRA) 0.4-0.3 % ophthalmic solution^Use 1 Drop in both eyes fourtimes daily.^Disp: 15 mL^Rfl: 4 peg 400-propylene glycol (SYSTANE GEL) 0.4-0.3 % drpg^Use 1 Drop in both eyes daily at bedtime.^Disp: 10 mL^Rfl: 2 gabapentin (NEURONTIN) 600 mg tablet^Take 1 tablet by mouth two times a day for 180 days.^Disp: 60 tablet^Rfl: 5 omeprazole (PRILOSEC) 40 mg capsule^take 1 capsule by mouth once daily^Disp: 30 capsule^Rfl: 5 potassium chloride SR (MICRO-K) 10 mEq CR capsule^Take 1 capsule by mouth once daily.^Disp: 7 capsule^Rfl: 0 hydroCHLOROthiazide 50 mg tablet^Take 1 tablet by mouth once daily.^Disp: 30 tablet^Rfl: 2 Cholecalciferol, Vitamin D3, 125 mcg (5,000 unit) cap^Take 1 capsule by mouth once daily.^Disp: 90 capsule^Rfl: 2 dulaglutide (TRULICITY) 3 mg/0.5 mL pen injector^Inject 3 mg subcutaneously one time a week.^Disp: 4 Each^Rfl: 2 insulin degludec (TRESIBA FLEXTOUCH U-100) 100 unit/mL (3 mL) injection pen^Inject 62 Units subcutaneously daily at bedtime.^Disp: 60 mL^Rfl: 3 meloxicam (MOBIC) 15 mg tablet^Take 1 tablet by mouth once daily as needed for pain. With food.^Disp: 30 tablet^Rfl: 1 flash glucose sensor (FREESTYLE TAYLOR 14 DAY SENSOR) kit^Use to check blood sugar 4 times daily. Please give 2 sensors per refill^Disp: 2 Kit^Rfl: 5 insulin aspart U-100 (NOVOLOG) 100 unit/mL (3 mL)^INJECT 20 UNITS SUBCUTANEOUSLY WITH MEALS THREE TIMES A DAY PLUS SLIDING SCALE #2 BASED ON PRE-MEAL BLOOD SUGAR (AROUND 80 UNITS PER DAY)^Disp: 60mL^Rfl: 3 Insulin [place], Disposable, (DROPLET PEN NEEDLE) 31 gauge x 12/17^use 1 PEN NEEDLE to inject MEDICATION subcutaneously four times a day^Disp: 200 Each^Rfl: 2 levothyroxine (SYNTHROID) 200 mcg tablet^Take 1 tablet by mouth daily before breakfast.^Disp: 90 tablet^Rfl: 3 OXYGEN, HOME THERAPY,^Inhale as instructed as directed. Uses at 2 l/m via nasal cannula during the day and 4 l/m at night^Disp: ^Rfl: hydrocortisone 2.5 % cream^Apply 1 application to affected area twice daily. Location: hands and chest^Disp: 20 g^Rfl: 0 (Patient taking differently: Apply 1 application to affected area two times a day. Location: hands and chest Uses as needed) rosuvastatin (CRESTOR) 10 mg tablet^Take 1 tablet by mouth daily at bedtime.^Disp: 30 tablet^Rfl: 11 lisinopril 2.5 mg tablet^Take 1 tablet by mouth once daily.^Disp: 90 tablet^Rfl: 3 empagliflozin (JARDIANCE) 25 mg tablet^Take 1 tablet by mouth daily with breakfast.^Disp: 90 tablet^Rfl: 3 Fenofibrate (LOFIBRA) 160 mg tablet^Take 1 tablet by mouth once daily.^Disp: 30 tablet^Rfl: 11 clotrimazole-betamethasone (LOTRISONE) cream^Apply 1 application to affected area twice daily. X 2 weeks.^Disp: 45 g^Rfl: 0 (Patient taking differently: Apply 1 application to affected area two timesa day. X 2 weeks. Uses as needed) dicyclomine (BENTYL) 10 mg capsule^Take 1 capsule by mouth before meals and at bedtime. for abdominal pain^Disp: 120 capsule^Rfl: 5 Miscellaneous Medical Supply (BLOOD PRESSURE CUFF)^1 Each as needed. Blood pressure Monitor and Cuff, use as directed. Dx: I10 Hypertension^Disp: 1 Each^Rfl: 0 flash glucose scanning reader (HeyLets TAYLOR 14 DAY READER)^Use to check blood sugar 4 times daily^Disp: 1 Each^Rfl: 0 estradiol (ESTRACE) 0.01 % (0.1 mg/gram) vaginal cream^Use 3 g vaginally two times a week.^Disp: 42.5 g^Rfl: 6 blood sugar diagnostic (FREESTYLE LITE STRIPS) test strip^Test blood sugar(s) 4 times daily. Dx: Other DM Code E11.40 Insulin: Yes^Disp: 50 Strip^Rfl: 3 (Patient not taking: Reported on 12/01/2023) blood sugar diagnostic (BLOOD GLUCOSE TEST) test strip^Test blood sugar(s) 4 times daily. Dx: OtherDM Code E11.40 Insulin: Yes^Disp: 50 Strip^Rfl: 11 (Patient not taking: Reported on 12/01/2023) blood sugar diagnostic (BLOOD GLUCOSE TEST) test strip^Test blood sugar(s) 4 times daily. Dx: Type 2 DM - Controlled E11.9 Insulin: Yes^Disp: 200 Strip^Rfl: 11 Blood-Glucose Meter monitoring kit^Check sugars daily and as needed (Freestyle Lite is what she hashad)^Disp: 1 Each^Rfl: 0 (Patient not taking: Reported on 12/01/2023) Lancets lancets^Test blood sugar(s) 4 times daily. Dx: E11.9 Insulin: Yes^Disp: 200 Each^Rfl: 11 (Patient not taking: Reported on 12/01/2023) Social History Tobacco Use Smoking status: Former Packs/day: 1.00 Years: 30.00 Additional pack years: 0.00 Total pack years: 30.00 Types: Cigarettes Quit date: 11/04/2013 Years since quittin.0 Smokeless tobacco: Never Vaping Use Vaping Use: Never used Substance Use Topics Alcohol use: Not Currently Comment: wine cool every once in a while Drug use: No Family History Problem Relation Age of Onset Diabetes Mother Cervical Cancer Sister Diabetes Brother Cancer Maternal Grandmother Stomach CA Breast Cancer Maternal Aunt 50's PAST SURGICAL HISTORY Procedure Laterality Date ESWL 04/25/14 kidney stones ESWL 05/16/14 kidney stones. PAST SURGICAL HISTORY OF c-sections x 2 PAST SURGICAL HISTORY OF appendectomy PAST SURGICAL HISTORY OF tubal ligation REMV CATARACT EXTRACAP,INSERT LENS Left 06/12/2021 Monofocal IOL 17.5 D XCAPSL CTRC RMVL INSJ IO LENS PROSTH W/O ECP Right 05/29/2021 I reviewed the past medical history, family history, social history and surgical history with changes noted above and updated in EMR. IMMUNIZATIONS Prevnar - xx Pneumovax - 2013 Influenza - xx COVID-19 - xx ROS: General: No fevers, chills or night sweats. No unintended weight loss. Weight gain. Fatigue. Eyes, Ears, nose, throat: No post nasal drip, rhinorrhea, purulent nasal discharge. No hoarseness. Vision stable. Cardiac: See HPI Resp: See HPI. GI: Occasional heartburn. Takes OTC Tums. Musculoskeletal: No joint pain or swelling. Neuro: No headache, focal weakness, tremor. Skin: No skin changes or rash. Otherwise negative. PHYSICAL EXAMINATION: BP 110/62 Pulse 72 Temp 36.7 C (98 F) (Temporal) Wt 108 kg (238 lb) LMP 04/27/2016 SpO2 92% BMI 40.85 kg/m Gen: No acute distress. Cooperative with examination. Sitting in wheelchair. HEENT: Normocephalic. Sclera, conjunctiva clear. Edentulous. Resp: No stridor, accessory respiratory muscle use, supra-sternal or intercostal retractions. No wheezes, crackles. CV: Regular rythm. Heart tones normal. Radial pulses normal. MSK: No kyphoscoliosis. Ext: Warm and well perfused. No clubbing, cyanosis. 2+ pitting edema bilaterally. Skin: No rash, ecchymoses. Neuro: Mental status normal. Affect normal. No tremor. DATA: Overnight oximetry on RA 11/17/2022: Total recording time 8 hours 22 minutes SPO2 less than or equal to 88% 196 minutes Lowest SPO2 73% Overnight oximetry on 2 L 10/14/2022: Total recording time 10 hours 83 minutes SPO2 less than or equal to 88% 2.7 minutes SPO2 less than or equal to 89% 4.3 minutes Lowest SPO2 83% Oximetry, 07/21/2022 O2 Device O2 Adapter NC O2 Flow SpO2% HR Activity Ft Walked (ft) Time (min) Avg Speed (MPH) R/A 95 83 Resting R/A 88 89 Walking, usual pace 450 3 1.7 NC 2 95 86 Resting NC 2 94 100 Walking, usual pace 450 3 1.7 ASSESSMENT/PLAN: 1. Post-COVID chronic dyspnea - ICD9: 786.09, 139.8, ICD10: R06.09, U09.9 (primary diagnosis) Patient is compliant and benefits from supplemental oxygen. No further therapy indicated. - SPIROMETRY WITH DILATOR IF OBSTRUCTED - OXIMETRY WITH AMBULATION - LUNG DIFFUSION CAPACITY (DLCO) 2. Exertional dyspnea - ICD9: 786.09, ICD10: R06.09 See #1. Will obtain PFTs and oximetry with ambulation. Patient has appointment coming up with cardiology. 3. Former smoker - ICD9: V15.82, ICD10: Z87.891 Patient agreeable to consult to lung cancer screening. - CONSULT LUNG CANCER SCREENING CLINIC Portions of this documentation were copied and pasted from previous office visit notes in order to provide a cohesive continuity of the history. The note has been reviewed and edited and updated as necessary. Brooke Be PA-C documented in this [facility]13-[facility]24 Miscellaneous Notes* Telephone Encounter - Sarina Adams MD - 11/16/2023 12:38 AM EST Okayed * Telephone Encounter - Mara Degroot LPN - 11/15/2023 8:08 AM EST Patient has been identified by name and date of : Yes, Provider Hima Date 11/15/23 Time 8:08am Patient phones for refill(s): Requested Prescriptions Pending Prescriptions Disp Refills furosemide (LASIX) 20 mg tablet 7 tablet 0 Sig: Take 1 tablet by mouth once daily. Date of last office visit in primary care: 10/28/2023 Date of next office visit in primary care: 12/10/2023 Please advise. Thank you. Mara Degroot LPN. documented in this [facility]02-[facility]-2024 Miscellaneous Notes* Telephone Encounter - Sarina Adams MD - 11/15/2023 1:09 PM EST Okayed * Telephone Encounter - Mara Degroot LPN - 11/15/2023 8:23 AM EST Patient has been identified by name and date of : Yes, Provider Hima Date 11/15/23 Time 8:23am Patient phones for refill(s): Requested Prescriptions Pending Prescriptions Disp Refills fluticasone (FLONASE) 50 mcg/actuation nasal spray 1 Each 11 Sig: Use 1-2 Sprays in each nostril once daily as needed. hydrOXYzine HCl (ATARAX) 25 mg tablet 30 tablet 3 Sig: Take 1-2 tablets by mouth at bedtime as needed. blood sugar diagnostic (FREESTYLE LITE STRIPS) test strip 50 Strip 3 Sig: Test blood sugar(s) 4 times daily. Dx: Other DM Code E11.40 Insulin: Yes Date of last office visit in primary care: 10/28/2023 Date of next office visit in primary care: 11/14/2023 Please advise. Thank you. Mara Degroot LPN. documented in this [facility]12-2024 Miscellaneous Notes* Telephone Encounter - Sarina Adams MD - 11/15/2023 1:07 PM EST The following approved medication requests have been transmitted electronically. Requested Prescriptions Signed Prescriptions Disp Refills HYDROcodone-acetaminophen (NORCO) 5-325 mg per tablet 60 tablet 0 Sig: Take 1 tablet by mouth two times a day as needed for pain for up to 30 days. Authorizing Provider: SARINA ADAMS MD Schedule her next 2 to 3 month follow up with me (has one with Cole coming up but should have next one with me scheduled already) * Telephone Encounter - Mara Degroot LPN - 11/15/2023 8:21 AM EST Patient has been identified by name and date of : Yes, Provider Hima Date 11/15/23 Time 8:22am Patient phones for refill(s): Requested Prescriptions Pending Prescriptions Disp Refills HYDROcodone-acetaminophen (NORCO) 5-325 mg per tablet 60 tablet 0 Sig: Take 1 tablet by mouth two times a day as needed for pain for up to 30 days. Date of last office visit in primary care: 10/28/2023 Date of next office visit in primary care: 11/14/2023 Please advise. Thank you. Mara Degroot LPN. documented in this [facility]24 Miscellaneous Notes* Telephone Encounter - GARIMA Rivera Kim E - 11/08/2023 12:23 PM EST Patient has been identified by name and date of : No Patient phones for refill(s): Requested Prescriptions Pending Prescriptions Disp Refills gabapentin (NEURONTIN) 600 mg tablet 60 tablet 5 Sig: Take 1 tablet by mouth two times a day for 180 days. Date of last office visit in primary care: 10/28/2023 Date of next office visit in primary care: 12/10/2023 Please advise. Thank you. Ruby Rivera LPN. documented in this encounterK[facility]01-25-2024 History of Present illness Narrative* Josy Del Rosario RT(R) - 10/28/2023 3:00 PM EST Radiology Service Progress Note PATIENT NAME: Samantha Romero DATE OF SERVICE: October 28, 2023 TIME: 3:02 PM PATIENT IDENTITY VERIFICATION COMPLETED USING TWO (2) IDENTIFIERS: Name and Date of confirmedby patient verbally. FALL SCREENING: Has the patient had 2 falls in the last year or 1 fall with injury or currently using an Ambulatory Assistive Device (Walker, Cane, Wheelchair, Crutches, etc.)? Yes, Patient High Riskfor Falls What interventions were put in place to prevent falls during this visit? Offered Assistance with Transfers/Clothing, Instructed Patient to Remain Seated (Not on Exam Table) Until Exam, and Increased Observations by Caregivers PATIENT GENDER DATA: Female. status: : No status: NO. PATIENT RELEVANT IMPLANT DATA REVIEWED: Yes PATIENT PRESENTS WITH AN IMPLANTABLE OR ATTACHED VENDING MACHINE FILLER: Yes [facility] RADIOLOGY DEPARTMENT: General X-ray: Exam(s) Completed: Spine X-Ray(s): Lumbar AP / LAT / L5-S1 PERIPHERAL IV DATA: Not applicable SIGNED BY: Josy Del Rosario RT(R) October 28, 2023 3:02 PM documented in this encounterK[facility]01-25-2024 Miscellaneous Notes* Result Encounter Note - Denise Alvarado APRN.CNS - 10/28/2023 3:00 PM EST Mild degenerative changes lumbar spine, no acute findings documented in this encounterK[facility]01-25-2024 Progress note* Result Encounter Note - Denise Alvarado APRN.CNS - 10/28/2023 3:00 PM EST Mild degenerative changes lumbar spine, no acute findings [facility]01-08-[facility] History of Present illness Narrative* Sarina Adams MD - 10/11/2023 4:04 PM EST This note was created using NoteWriter. Subjective Samantha Romero is a 58 year old female. Patient presents with: Follow up SUBJECTIVE: Samantha Romero is a 58 year old year old lady here today for follow up appointment for review of medical conditions. Ongoing low back pain. Taking Vicodin just takes edge of pain off but still limiting activity Cannot stand at sink to do dishes. Gets pain left side sometimes. A little on right. A little shooting into buttocks. Dr. Soares saw her 07/01/23. Nothing noted on Lumbar Xrays to reveal cause for pain. On top has neuropathy pain with tingling in hands and feet. Swelling in feet fluctuates--worst in afternoon. Taking her pills but sometimes hard to swallow. Mostly feels pain and numbness on left side of throat. No feeling like getting stuck. Feels like hard to get swallowing started. Drinking water helps. Does not hurt to swallow. States that has icemaker so can eat ice all day long. Some reflux in midchest level but not to throat. Went to ER for chest pain. 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 Appointment in February. Pain in chest just once a while. If lifts too much can make chest hurt. States that does not recall getting Vitamin D RX filled at [facility] though Medication Dispense History says was filled 06/30/23 for 90 pills. Doing okay on present dose Trulicity. NO adverse effects. Sugars are doing better as long as watches what she eats Drinks zero sugars pop. Occasional high over 300 but could be too soon after eating. Using SSI with meals. AN--no lows under 70 Depression Screening PHQ-2 Score PHQ-9 Score CHRISTIAN-2 Total Score CHRISTIAN-7 Total Score 10/11/2023 1 - - - Depression screening tool completed and reviewed. Based on score and interview, patient is not at risk for depression. Screening tool discussed with patient, and I recommended no further interventionat this time. PAST MEDICAL HISTORY Diagnosis Date Chronic hypoxemic respiratory failure (HCC) COVID-19 07/06/2021 HTN (hypertension) Hyperlipidemia 04/05/2014 Hypothyroid 04/19/2014 Kidney stone on left side 04/12/2014 Myasthenia gravis (HCC) OA (osteoarthritis) of hip, bilateral 04/04/2014 Type II or unspecified type diabetes mellitus without mention of complication, uncontrolled 04/05/2014 Current Outpatient Medications Medication Sig blood sugar diagnostic (FREESTYLE LITE STRIPS) test strip Test blood sugar(s) 4 times daily. Dx: Other DM Code E11.40 Insulin: Yes meloxicam (MOBIC) 15 mg tablet Take 1 tablet by mouth once daily as needed for pain. With food. HYDROcodone-acetaminophen (NORCO) 5-325 mg per tablet Take 1 tablet by mouth two times a day as needed for pain. Short term increase 07/02 to twice daily due to increased pain from recent fall flash glucose sensor (FREESTYLE TAYLOR 14 DAY SENSOR) kit Use to check blood sugar 4 times daily. Please give 2 sensors per refill potassium chloride SR (MICRO-K) 10 mEq CR capsule take 1 capsule by mouth twice a day blood sugar diagnostic (BLOOD GLUCOSE TEST) test strip Test blood sugar(s) 4 times daily. Dx: OtherDM Code E11.40 Insulin: Yes Cholecalciferol, Vitamin D3, 125 mcg (5,000 unit) cap Take 1 capsule by mouth once daily. insulin aspart U-100 (NOVOLOG) 100 unit/mL (3 mL) INJECT 20 UNITS SUBCUTANEOUSLY WITH MEALS THREE TIMES A DAY PLUS SLIDING SCALE #2 BASED ON PRE-MEAL BLOOD SUGAR (AROUND 80 UNITS PER DAY) dulaglutide (TRULICITY) 3 mg/0.5 mL pen injector Inject 3 mg subcutaneously one time a week. Insulin [place], Disposable, (DROPLET PEN NEEDLE) 31 gauge x 3/16 use 1 PEN NEEDLE to inject MEDICATION subcutaneously four times a day levothyroxine (SYNTHROID) 200 mcg tablet Take 1 tablet by mouth daily before breakfast. furosemide (LASIX) 40 mg tablet Take 1 tablet by mouth once daily. for leg swelling PEG 400-propylene glycol (SYSTANE ULTRA) 0.4-0.3 % ophthalmic solution Use 1 Drop in both eyes fourtimes daily. peg 400-propylene glycol (SYSTANE GEL) 0.4-0.3 % drpg Use 1 Drop in both eyes daily at bedtime. blood sugar diagnostic (BLOOD GLUCOSE TEST) test strip Test blood sugar(s) 4 times daily. Dx: Type 2 DM - Controlled E11.9 Insulin: Yes OXYGEN, HOME THERAPY, Inhale as instructed as directed. Uses at 2 l/m via nasal cannula during the day and 4 l/m at night omeprazole (PRILOSEC) 40 mg capsule Take 1 capsule by mouth once daily. hydroCHLOROthiazide 50 mg tablet Take 1 tablet by mouth once daily. hydrocortisone 2.5 % cream Apply 1 application to affected area twice daily. Location: hands and chest (Patient taking differently: Apply 1 application to affected area two times a day. Location: hands and chest Uses as needed) Blood-Glucose Meter monitoring kit Check sugars daily and as needed (Freestyle Lite is what she hashad) gabapentin (NEURONTIN) 600 mg tablet Take 1 tablet by mouth twice daily for 180 days. Do not start before April 25, 2023. rosuvastatin (CRESTOR) 10 mg tablet Take 1 tablet by mouth daily at bedtime. lisinopril 2.5 mg tablet Take 1 tablet by mouth once daily. hydrOXYzine HCl (ATARAX) 25 mg tablet Take 1-2 tablets by mouth at bedtime as needed. insulin degludec (TRESIBA FLEXTOUCH U-100) 100 unit/mL (3 mL) injection pen Inject 62 Units subcutaneously daily at bedtime. Lancets lancets Test blood sugar(s) 4 times daily. Dx: E11.9 Insulin: Yes empagliflozin (JARDIANCE) 25 mg tablet Take 1 tablet by mouth daily with breakfast. Fenofibrate (LOFIBRA) 160 mg tablet Take 1 tablet by mouth once daily. clotrimazole-betamethasone (LOTRISONE) cream Apply 1 application to affected area twice daily. X 2 weeks. (Patient taking differently: Apply 1 application to affected area two times a day. X 2 weeks. Uses as needed) fluticasone (FLONASE) 50 mcg/actuation nasal spray Use 1-2 Sprays in each nostril once daily as needed. dicyclomine (BENTYL) 10 mg capsule Take 1 capsule by mouth before meals and at bedtime. for abdominal pain Miscellaneous Medical Supply (BLOOD PRESSURE CUFF) 1 Each as needed. Blood pressure Monitor and Cuff, use as directed. Dx: I10 Hypertension flash glucose scanning reader (FREESTYLE TAYLOR 14 DAY READER) Use to check blood sugar 4 times daily estradiol (ESTRACE) 0.01 % (0.1 mg/gram) vaginal cream Use 3 g vaginally two times a week. Current Facility-Administered Medications Medication Dose Route Frequency perflutren lipid microspheres 1.3 mL in NaCl (PF) 0.9% 10 mL injection (DEFINITY) INTRAVENOUS DIRECTED PRN sodium chloride 0.9 % (flush) 10 mL (BD POSIFLUSH) 10 mL INTRAVENOUS DIRECTED PRN sodium chloride 0.9 % (flush) 10 mL (BD POSIFLUSH) 10 mL INTRAVENOUS DIRECTED PRN sodium chloride 0.9 % (flush) 10 mL (BD POSIFLUSH) 10 mL INTRAVENOUS DIRECTED PRN sodium chloride 0.9 % (flush) 10 mL (BD POSIFLUSH) 10 mL INTRAVENOUS DIRECTED PRN Review of Systems Objective BP 101/59 Pulse 78 Temp 36.6 C (97.9 F) Resp 18 Wt 101.2 kg (223 lb) LMP 04/27/2016 SpO2 95% BMI 38.28 kg/m Physical Exam Constitutional: Appearance: Normal appearance. HENT: Head: Normocephalic. Eyes: Conjunctiva/sclera: Conjunctivae normal. Cardiovascular: Rate and Rhythm: Normal rate and regular rhythm. Heart sounds: Normal heart sounds. Pulmonary: Effort: Pulmonary effort is normal. Breath sounds: Normal breath sounds. Musculoskeletal: Right lower leg: Edema present. Left lower leg: Edema present. Comments: Tender SI joints and lower lumbar paravertebral muscles. Skin: General: Skin is warm and dry. Neurological: General: No focal deficit present. Mental Status: She is alert and oriented to person, place, and time. Psychiatric: Mood and Affect: Mood normal. Behavior: Behavior normal. Thought Content: Thought content normal. Judgment: Judgment normal. Component Latest Ref Rng & Units 03/26/2023 04/29/2023 05/17/2023 06/28/2023 Protein, Total 6.3 - 8.0 g/dL 7.1 7.1 Albumin 3.9 - 4.9 g/dL 4.2 4.0 Calcium 8.5 - 10.2 mg/dL 9.2 10.1 9.6 Bilirubin, Total 0.2 - 1.3 mg/dL 0.2 0.2 Alkaline Phosphatase 34 - 123 U/L 66 80 AST 13 - 35 U/L 25 17 ALT 7 - 38 U/L 25 23 Glucose 74 - 99 mg/dL 316 (H) 339 (H) 377 (H) BUN 7 - 21 mg/dL 32 (H) 36 (H) 45 (H) Creatinine 0.58 - 0.96 mg/dL 0.95 1.08 (H) 1.22 (H) Sodium 136 - 144 mmol/L 139 135 (L) 136 Potassium 3.7 - 5.1 mmol/L 4.3 4.1 4.4 Chloride 97 - 105 mmol/L 99 96 (L) 97 CO2 22 - 30 mmol/L 24 26 21 (L) Anion Gap 9 - 18 mmol/L 16 13 18 eGFR >=60 mL/min/1.73m 70 60 52 (L) WBC 3.70 - 11.00 k/uL 5.05 RBC 3.90 - 5.20 m/uL 4.01 Hemoglobin 11.5 - 15.5 g/dL 10.9 (L) Hematocrit 36.0 - 46.0 % 35.2 (L) MCV 80.0 - 100.0 fL 87.8 MCH 26.0 - 34.0 pg 27.2 MCHC 30.5 - 36.0 g/dL 31.0 RDW-CV 11.5 - 15.0 % 15.0 Platelet Count 150 - 400 k/uL 135 (L) MPV 9.0 - 12.7 fL 11.4 Absolute nRBC <0.01 k/uL <0.01 Total Cholesterol, Nonfasting <200 mg/dL 223 (H) Triglycerides, Nonfasting <150 mg/dL 521 (H) HDL Cholesterol, Nonfasting >39 mg/dL 39 (L) LDL Cholesterol, Nonfasting Non HDL Cholesterol, Nonfasting <130 mg/dL 184 (H) VLDL Cholesterol, Nonfasting Total Chol/HDL Ratio, Nonfasting <5.10 mg/dL 5.72 (H) LDL/HDL Ratio, Nonfasting Creatinine, Ur Random (UCRR) 20.0 - 300.0 mg/dL 36.3 Albumin, Urine Random mg/L 329.1 Albumin/Creat Ratio <30 mg/g 907 (H) Hemoglobin A1C 4.3 - 5.6 % 12.4 (H) 12.6 (H) Estimated Average Glucose mg/dL 309 315 Vitamin D 25 Hydroxy 31.0 - 80.0 ng/mL 10.9 (L) 12.4 (L) TSH 0.270 - 4.200 mIU/L 9.630 (H) 28.600 (H) 56.100 (H) Free T4 0.9 - 1.7 ng/dL 1.3 Free T3 2.3 - 4.1 pg/mL 1.9 (L) NT Pro BNP <125 pg/mL <36 Assessment and Plan Encounter Diagnosis ICD-10-CM 1. 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) E11.3319 dulaglutide (TRULICITY) 3 mg/0.5 mL pen injector insulin degludec (TRESIBA FLEXTOUCH U-100) 100 unit/mL (3 mL) injection pen COMP METABOLIC PANEL CBC HGB A1C TSH BLD T4 FREE/FREE THYROX T3 FREE BLD VITAMIN D 25 HYDROXY ALBUMIN/CREAT RATIO RND UR Will continue working on medication adjustment, and diet and exercise to control sugars better 2. Chronic SI joint pain M53.3 HYDROcodone-acetaminophen (NORCO) 5-325 mg per tablet G89.29 tenderness noted 3. Acquired hypothyroidism E03.9 TSH BLD T4 FREE/FREE THYROX T3 FREE BLD Prior TSH high--discussed need to take thyroid medication routinely on empty stomach.Will monitor level and adjust dose as indicated 4. Vitamin D deficiency E55.9 VITAMIN D 25 HYDROXY Adjust supplement as needed 5. Chronic midline low back pain, unspecified whether sciatica present M54.50 HYDROcodone-acetaminophen (NORCO) 5-325 mg per tablet G89.29 DISCONTINUED: gabapentin (NEURONTIN) 600 mg tablet Could be exacerbated by thyroid being under-replaced, weight ,etc. Further evaluation and treatmentas indicated Above issues addressed with patient. Patient involved in shared decision making for management of medical issues. History and medications reviewed. Epic updated as needed Refills and/or prescriptions taken care of and meds adjusted as indicated after reviewed history, exam and labs. Health Maintenance reviewed. Updated record and/or ordered tests as recorded. Encouraged on efforts at healthy diet and regular exercise and adequate sleep. Transportation and cost an issue. Sarina Adams MD [facility] Miscellaneous Notes* Telephone Encounter - Jarrod Buckley Ma - 09/15/2023 2:12 PM EST Notified by [employer]. * Telephone Encounter - Cheryl Davila OCCA - 09/14/2023 2:35 PM EST TC to patient with no answer. Unable to leave message d/t VM full. ANGEL Marc * Telephone Encounter - Cole Bower APRN.KENDAL - 09/14/2023 2:31 PM EST Please let her know I sent this in. * Telephone Encounter - Daja Santos LPN - 09/14/2023 1:47 PM EST Pt checking on refill. Avised her has not been addressed yet. Daja Santos LPN * Telephone Encounter - Sophie Wolfe - 09/14/2023 11:53 AM EST Patient calling to check the status of refill. Please return call when complete. * Telephone Encounter - Carolina Cordova MA - 09/13/2023 11:51 AM EST Patient has been identified by name and date of : Yes Requested Prescriptions Pending Prescriptions Disp Refills HYDROcodone-acetaminophen (NORCO) 5-325 mg per tablet 60 tablet 0 Sig: Take 1 tablet by mouth two times a day as needed for pain. Short term increase 07/02 to twice daily due to increased pain from recent fall RX INSTRUCTIONS: Patient aware RX will be sent to pharmacy. No need to notify patient. Patient last office visit: 07/22/23 Patient next office visit: 10/11/23 Carolina Cordova MA * Telephone Encounter - Corina Pacheco - 09/13/2023 11:27 AM EST Patient has been identified by name and date of : Yes Requested Prescriptions Pending Prescriptions Disp Refills HYDROcodone-acetaminophen (NORCO) 5-325 mg per tablet 60 tablet 0 Sig: Take 1 tablet by mouth two times a day as needed for pain. Short term increase 07/02 to twice daily due to increased pain from recent fall RX INSTRUCTIONS: Patient aware RX will be sent to pharmacy. No need to notify patient. Corina Bronson Pss documented in this [facility]12-12-2023 Miscellaneous Notes* Telephone Encounter - Daja Santos LPN - 09/14/2023 1:45 PM EST Pt calling thinking she missed call from office. Advised her did not see any messages. Did advise pt of My Chart message regarding vit D3 refill. Pt verbalizes understanding. Advised pt Reynolds requesthas not been addressed yet. Daja Santos LPN documented in this encounterK[facility]12-12-2023 Miscellaneous Notes* Telephone Encounter - Jaylyn Vazquez LPN - 09/14/2023 1:03 PM EST Samantha our office did receive your refill request for Vitamin D3, however a new prescription was done 08/13/2023 for 90 capsules 2 refills, sent to [facility]. Please check with your pharmacy, RX could be on file waiting for you to call to fill or you have refills. Jaylyn Vazquez LPN documented in this [facility]12-[facility]23 Miscellaneous Notes* Telephone Encounter - Cheryl Davila OCCA - 09/13/2023 8:37 AM EST Patient has been identified by name and date of : Yes Patient phones for refill(s): Requested Prescriptions Pending Prescriptions Disp Refills blood sugar diagnostic (FREESTYLE LITE STRIPS) test strip 50 Strip 3 Sig: Test blood sugar(s) 4 times daily. Dx: Other DM Code E11.40 Insulin: Yes HYDROcodone-acetaminophen (NORCO) 5-325 mg per tablet 60 tablet 0 Sig: Take 1 tablet by mouth two times a day as needed for pain. Short term increase 07/02 to twice daily due to increased pain from recent fall Date of last office visit in primary care: 07/22/2023 Date of next office visit in primary care: 10/11/2023 Last 2 Encounter Wt Readings: Date: Wt: 07/22/2023 103.4 kg (228 lb) 06/28/2023 107 kg (236 lb) Please advise. Thank you. ANGEL Marc. documented in this encounterK[facility]12-02-2023 Miscellaneous Notes* Telephone Encounter - Sarina Adams MD - 09/04/2023 12:18 PM EST Okayed * Telephone Encounter - Rere Moore - 09/04/2023 10:17 AM EST Requested Prescriptions Pending Prescriptions Disp Refills potassium chloride SR (MICRO-K) 10 mEq CR capsule [Pharmacy Med Name: POTASSIUM CL ER 10 MEQ CAPSULE] 60 capsule 0 Sig: take 1 capsule by mouth twice a day LIDIA- 06/28/2023 NOV- not scheduled at this time Rere Moore MA documented in this encounterK[facility]11-09-2023 Discharge summary Author [facility] August 12, 2023 9:14pm Note Date/Time August 12, 2023 3 :41pm [facility] Medical Records Department [address] [place] [address] Emergency Department Summary 08/12/23 MR#: [id number] Acct: [id number] Name: SAMANTHA ROMERO Rep #:[id number] : 1965 57 From: Vikram Hicks MD PCP: Dr. Sarina Adams MD Status:RE G ER Location: ED HPI History of Present Illness Chief Complaint: Chest Pain Informant: patient Narrative Narrative: Patient complains of anterior chest pain. Patient states that this morning she woke up at about 930. She has had kind of an ache or heaviness in the front of her chest since then. She states she has alittle aching in her arms. No radiation to the back but she has some chronic lumbar pain that is unchanged. She states that she has some mild chronic dyspnea but it does not seem to be changed at all with this. She is on oxygen due to pulmonary injury after having COVID a couple times. But she has not beencoughing or having new pulmonary symptoms. She has never had any heart disease she states. No known cardiomyopathy, cardiovascular disease or rhythm dysfunction. She states sometimes she does get chest pain from scarring from COVID but does not think it is like this. She states the pain is constant. It is worse if you press on the area. No fevers. Not lightheaded or presyncopal. Patient states she gets aches in other areas like her legs but she does not knowif that is from her diabetic neuropathy. I also found out that she is on hydrochlorothiazide all the time. But she was just recently placed on a short course of Lasix because she had a little bit more swelling in her legs and ankles. It was equal. She is not sure of the dose. [facility] Medical History Anemia Chronic respiratory failure with hypoxia Elevated lipase Former tobacco use Hypercholesteremia Hypertension Hypothyroid Kidney stones Migraines Obesity Pericardial effusion Thrombocytopenia Type 2 diabetes mellitus Urinary retention UTI (urinary tract infection) Home Medications fluticasone propionate 50 mcg/actuation nasal spray,suspension 2 spray QHS nasalspray 05/24/15 [History Last Taken 03/24/21] dulaglutide 1.5 mg/0.5 mL subcutaneous pen injector (Trulicity) 1.5 mg subcut SUdm 03/25/21 [History Last Taken 03/23/21] estradiol 0.01% (0.1 mg/gram) vaginal cream 3 g vaginal .2X/WEEK health maintenance 03/25/21 [History Last Taken Unknown] fenofibrate 160 mg tablet 160 mg PO DAILY cholesterol 03/25/21 [History Last Taken 03/24/21] gabapentin 300 mg capsule 300 mg PO QHS nerve pain 03/25/21 [History Last Taken 03/24/21] levothyroxine 175 mcg tablet 175 mcg PO DAILY thyroid 03/25/21 [History Last Taken 03/24/21] omega-3 fatty acids-vitamin E 1,000 mg capsule 1 cap PO DAILY supplement 03/25/21 [History Last Taken 03/24/21] vitamin E 268 mg (400 unit) capsule 400 unit PO DAILY supplement 03/25/21 [History Last Taken 03/24/21] dicyclomine 10 mg capsule 10 mg PO ACHS abdominal pain 07/06/21 [History Last Taken Unknown] hydrochlorothiazide 12.5 mg capsule 12.5 mg PO DAILY diuretic 07/06/21 [History Last Taken Unknown] insulin degludec 100 unit/mL (3 mL) subcutaneous pen (Tresiba FlexTouch U-100 insulin) 52 unit subcut QHS diabetes 07/06/21 [History Last Taken Unknown] ketorolac 0.5 % eye drops 1 drp ophthalmic (eye) Q6H eye 07/06/21 [History Last Taken Unknown] lisinopril 2.5 mg tablet 2.5 mg PO DAILY blood pressure 07/06/21 [History Last Taken Unknown] meloxicam 15 mg tablet 15 mg PO DAILY PRN Pain 07/06/21 [History Last Taken Unknown] ondansetron 4 mg disintegrating tablet 4 mg PO Q8H PRN nausea and vomiting #10 tabs 07/06/21 [Rx Last Taken Unknown] prednisolone acetate 1 % eye drops,suspension 1 drp ophthalmic (eye) Q6H eye 07/06/21 [History Last Taken Unknown] rosuvastatin 10 mg tablet 10 mg PO DAILY cholesterol 07/06/21 [History Last Taken Unknown] insulin lispro 100 unit/mL subcutaneous pen (Humalog KwikPen (U-100) Insulin) 8 unit (0.08 mL) subcut TIDCM #0 mL 07/21/21 [Rx Last Taken Unknown] levofloxacin 500 mg tablet 500 mg PO DAILY #4 tabs 08/11/22 [Rx Last Taken Unknown] Allergy/AdvReac Type Severity Reaction Status Date / Time metformin AdvReac Diarrhea Verified 08/12/23 14:39 oxycodone [From Percocet] AdvReac upset Verified 08/12/23 14:39 stomach/off balance Family History Mother Diabetes Father Diabetes Surgical History History of appendectomy Previous section Social History household members: none Smoking Status: Former smoker how long ago did patient quit smoking: Quit cigarette tobacco in 2015, 1 ppd since teenager until quit. alcohol intake: never substance use type: does not use ROS ROS ED ROS Narrative A complete review of systems was performed and is negative except as documented in the history of present illness. Some specific details below. Constitutional: No recent fevers or chills. No malaise. EYE: No discharge, visual complaints, or pain. ENT: No difficulty swallowing. No swelling. No pain. No reflux symptoms. CV: See history of present illness. Respiratory: See history of present illness. Chronic breathing problems but no change. She is on 2 L all the time. GI: No abdominal pain. No nausea vomiting diarrhea. No blood in stool. : No frequency dysuria or hematuria. Musculoskeletal: No recent trauma. No pains. No swelling. It sounds like she had some ankle swelling somewhere recently but was placed on Lasix for unknown dose an unknown period of time and it has improved. Denies history of DVT or PE. Skin: No rash. Nondiaphoretic. Neuro: No weakness or numbness. Endocrine: No polyuria or polydipsia. EXAM Physical Exam Narrative Exam Narrative: CONSTITUTIONAL: Patient is nontoxic in appearance. The patient looks comfortable. Work of breathing looks normal. HEENT: No notable trauma. Mucous membranes moist. No sinus tenderness. No indication of pain with swallowing. EYES: No conjunctival injection. No pallor. NECK:No JVD. No stridor. CARDIOVASCULAR: Regular rate. Regular rhythm. No notable murmur. No JVD. RESPIRATORY: No respiratory distress. Breathing is unlabored. No wheezes. No rhonchi. No rales. No pain with a deep breath. No chest wall tenderness. Her saturations are 98 to 100% on her 2 L oxygen which is her normal. This is showing no hypoxia at her FiO2. GASTROINTESTINAL: Not distended. Bowel sounds are normal. No tenderness. No guarding. No rebound. No palpable mass. No bruit is heard. GENITOURINARY: No tenderness over the bladder. No CVA tenderness. MUSCULOSKELETAL: Atraumatic. Trace ankle/peripheral edema. Patient states thisis normal. No cord. No tenderness along the deep venous system. No asymmetry. No distended veins. NEUROLOGICAL: Patient is alert and appropriate. No focal deficit noted. SKIN: No noted rashes. No diaphoresis. PSYCHIATRIC: Patient is calm. Mood is appropriate. Const Vital Signs: 08/12/23 14:40 08/12/23 14:47 08/12/23 14:59 Temperature 96.1 F L Temperature Source Temporal Pulse Rate 70 Respiratory Rate 14 Blood Pressure 85/35 L 85/41 L 109/52 L Blood Pressure Mean 51 55 71 Pulse Ox 97 Oxygen Delivery Method Nasal Cannula Oxygen Flow Rate (L/min) 2 08/12/23 15:34 08/12/23 16:37 08/12/23 17:00 Temperature Temperature Source Pulse Rate 67 67 Respiratory Rate 10 L 10 L Blood Pressure 88/69 L 91/56 L Blood Pressure Mean 75 67 Pulse Ox 100 96 98 Oxygen Delivery Method Nasal Cannula Nasal Cannula Room Air Oxygen Flow Rate (L/min) 2 2 08/12/23 18:00 08/12/23 19:08 08/12/23 20:56 Temperature Temperature Source Pulse Rate 65 Respiratory Rate 18 Blood Pressure 101/61 93/56 L 116/86 H Blood Pressure Mean 74 68 96 Pulse Ox Oxygen Delivery Method Oxygen Flow Rate (L/min) Heart Score History: Slightly/Non-Suspicious ECG: Normal Age: >45 - <65 years Risk Factors: >/= 3 Risk Factors or History of CAD Troponin: </= Normal Limit Score: 3 MDM MDM MDM Narrative Medical decision making narrative: Patient CBC shows normal white count minimally low hemoglobin and normal platelets. Electrolytes showed slight elevation of glucose minimal elevation in creatinine and minimally low sodium. But none of these were large changes. Patient's troponin is negative. Repeat is negative. Noemi Patient's blood pressure here was quite variable. She would vary between 80s and about 115. But the patient had an IV in her right arm. She has a continuous glucose monitor on her left upper arm. So blood pressures were beingtaken off of her left forearm and wrist area. This is why we did the lactate. She has no symptoms of low blood pressure. When I look over her blood pressuresin the past she has amazing variability hour to an hour. I think with no symptoms, bounding peripheral pulses, difficult to check blood pressure due to cuff position, normal lactate I do not think this is an acute issue. Patient has had soreness in her anterior chest all day. She is not short of breath different than normal. She is not hypoxic on her oxygen. No pleuritic pain. No hemoptysis. No new leg pain or swelling. I do not think this represents PE. Lab Data Attestation: I reviewed the patient's lab results. Labs: Laboratory Results - last 24 hr 08/12/23 08/12/23 08/12/23 15:30 15:30 16:05 WBC Cancelled 7.2 Corrected WBC Cancelled RBC Cancelled 3.98 L Hgb Cancelled 11.1 L Hct Cancelled 35.4 L MCV Cancelled 88.9 MCH Cancelled 27.9 MCHC Cancelled 31.4 L RDW Std Deviation Cancelled 45.9 H RDW Coeff of Catina Cancelled 14.3 Plt Count Cancelled 166 MPV Cancelled 11.1 Immature Gran % (Auto) Cancelled 0.600 Neut % (Auto) Cancelled 63.8 Lymph % (Auto) Cancelled 21.5 [place] % (Auto) Cancelled 10.6 H Eos % (Auto) Cancelled 3.1 Baso % (Auto) Cancelled 0.4 Absolute Neuts (auto) Cancelled 4.6 Absolute Lymphs (auto) Cancelled 1.54 Total Counted Cancelled Neutrophils % (Manual) Cancelled Band Neutrophils % Cancelled Lymphocytes % (Manual) Cancelled Monocytes % (Manual) Cancelled Eosinophils % (Manual) Cancelled Basophils % (Manual) Cancelled Metamyelocytes % Cancelled Myelocytes % Cancelled Promyelocytes % Cancelled Blast Cells % Cancelled Plasma Cell % (Manual) Cancelled Other Cells % Cancelled Nucleated RBC % Cancelled 0 Nucleated RBCs/100 WBC Cancelled Differential Comment Cancelled Diff Path Review Cancelled Hypersegmented Neuts Cancelled Atypical Lymphocytes Cancelled Reactive Lymphocytes Cancelled Smudge Cells Cancelled Toxic Granulation Cancelled Toxic Vacuolation Cancelled Dohle Bodies Cancelled Serge Rods Cancelled Platelet Estimate Cancelled Plt Morphology Comment Cancelled RBC Morphology Cancelled Cancelled Polychromasia Cancelled Hypochromasia Cancelled Poikilocytosis Cancelled Basophilic Stippling Cancelled Anisocytosis Cancelled Microcytosis Cancelled Macrocytosis Cancelled Spherocytes Cancelled Sickle Cells Cancelled Target Cells Cancelled Tear Drop Cells Cancelled Ovalocytes Cancelled Stomatocytes Cancelled Vega-Hewitt Bodies Cancelled Kinsey Cells Cancelled Bite Cells Cancelled Crenated Cell Cancelled Acanthocytes (Spur) Cancelled Rouleaux Cancelled Schistocytes Cancelled Sodium 135 L Potassium 4.4 Chloride 101 Carbon Dioxide 29.0 Anion Gap 5 BUN 46 H Creatinine 1.47 H Est GFR (MDRD) Af Amer 47 L Est GFR (MDRD) Non-Af 39 L BUN/Creatinine Ratio 31.3 H Glucose 251 H Lactic Acid Calcium 9.6 Troponin I High Sens 27 08/12/23 08/12/23 16:37 17:51 WBC Corrected WBC RBC Hgb Hct MCV MCH MCHC RDW Std Deviation RDW Coeff of Catina Plt Count MPV Immature Gran % (Auto) Neut % (Auto) Lymph % (Auto) [place] % (Auto) Eos % (Auto) Baso % (Auto) Absolute Neuts (auto) Absolute Lymphs (auto) Total Counted Neutrophils % (Manual) Band Neutrophils % Lymphocytes % (Manual) Monocytes % (Manual) Eosinophils % (Manual) Basophils % (Manual) Metamyelocytes % Myelocytes % Promyelocytes % Blast Cells % Plasma Cell % (Manual) Other Cells % Nucleated RBC % Nucleated RBCs/100 WBC Differential Comment Diff Path Review Hypersegmented Neuts Atypical Lymphocytes Reactive Lymphocytes Smudge Cells Toxic Granulation Toxic Vacuolation Dohle Bodies Serge Rods Platelet Estimate Plt Morphology Comment RBC Morphology Polychromasia Hypochromasia Poikilocytosis Basophilic Stippling Anisocytosis Microcytosis Macrocytosis Spherocytes Sickle Cells Target Cells Tear Drop Cells Ovalocytes Stomatocytes Vega-Hewitt Bodies [place] Cells Bite Cells Crenated Cell Acanthocytes (Spur) Rouleaux Schistocytes Sodium Potassium Chloride Carbon Dioxide Anion Gap BUN Creatinine Est GFR (MDRD) Af Amer Est GFR (MDRD) Non-Af BUN/Creatinine Ratio Glucose Lactic Acid 0.3 L Calcium Troponin I High Sens 23 Radiography Diagnostic Testing: Clinical Impression(s) from Imaging Studies Chest X-Ray 08/12/23 15:40 IMPRESSION: Minimal linear atelectasis or scar in the mid left lung. There is no focal consolidation. Electronically Signed: Matt Tran MD at 16:52 EST , EKG Initial EKG: Comments: My independent interpretation of the patient's EKG done for chest pain shows normal sinus rhythm. Overall rate of 68. No ectopy. No acuteST elevation or depression. DE interval, QRS duration and QTc are normal. Discharge Plan Triage Chief Complaint: Chest Pain ED Provider: Vikram Hicks Dx/Rx/DC Orders Clinical Impression: Chest pain Instructions: ED Chest Pain, Uncertain Cause Prescriptions: No Action fluticasone propionate 1 SPRAY spray,suspension 2 spray NASAL QHS Patient Comments: allergies gabapentin 300 mg capsule 300 mg PO QHS Patient Comments: take 1 capsule by mouth at bedtime estradiol 0.01 % (0.1 mg/gram) cream 3 g VAGINAL .2X/WEEK Patient Comments: insert 3 grams vaginally two times a week fenofibrate 160 mg tablet 160 mg PO DAILY Patient Comments: take 1 tablet by mouth once daily Trulicity 1.5 mg/0.5 mL pen injector 1.5 mg SUBCUT JOHNSON Patient Comments: inject 0.5 milliliters ( 1 AND 1/2 milligrams ) subcutaneously every week levothyroxine 175 mcg tablet 175 mcg PO DAILY Patient Comments: take 1 tablet by mouth once daily ON AN EMPTY STOMACH (FOR THYROID) vitamin E 400 unit Capsule 400 unit PO DAILY omega-3 fatty acids-vitamin E 1,000 mg Capsule 1 cap PO DAILY meloxicam 15 mg tablet 15 mg PO DAILY PRN (Reason: Pain) Patient Comments: take 1 tablet by mouth once daily if needed for pain with food ketorolac 0.5 % drops 1 drp ophthalmic (eye) Q6H Patient Comments: instill 1 drop into left eye four times a day prednisolone acetate 1 % drops,suspension 1 drp ophthalmic (eye) Q6H Patient Comments: instill 1 drop into right eye four times a day hydrochlorothiazide 12.5 mg capsule 12.5 mg PO DAILY Patient Comments: take 1 capsule by mouth once daily lisinopril 2.5 mg tablet 2.5 mg PO DAILY Patient Comments: take 1 tablet by mouth once daily dicyclomine 10 mg capsule 10 mg PO ACHS Patient Comments: take 1 capsule by mouth four times a day before meals and at bedtime FOR ABDOMINAL PAIN rosuvastatin 10 mg tablet 10 mg PO DAILY Patient Comments: take 1 tablet by mouth at bedtime insulin degludec [Tresiba FlexTouch U-100] 100 unit/mL (3 mL) insulin pen 52 unit SUBCUT QHS Patient Comments: INJECT 50 UNITS SUBCUTANEOUSLY DAILY AT BEDTIME ondansetron 4 mg tablet,disintegrating 4 mg PO Q8H PRN (Reason: nausea and vomiting) Qty: 10 0RF insulin lispro [Humalog KwikPen Insulin] 100 unit/mL Insulin Pen 8 unit subcut TIDCM Qty: 0 0RF levofloxacin 500 mg tablet 500 mg PO DAILY Qty: 4 0RF Rx Instructions: start on 08/12/22 Primary Care Provider: Sarina Adams Referrals: Sarina Adams MD [Primary Care Provider] - 3-5 Days Disposition Disposition: Home, Self Care What to do if you have Problems For any increased pain, shortness of breath, bleeding, nausea or vomiting, chestpain, or any unexpected problems, contact your Primary Care Provider. Call [facility] ([phone]) or report to the closest Emergency Room. Call 911 if necessary. 08/12/232113 <Electronically signed by Vikram Hicks MD> Cosigner Signature (if applicable): CC: Dr. Sarina Adams MD ~ Signed [facility] Work Phone: [phone]) 870-238711-09-2023 History of Present illness Narrative* Ericka Zamora, OD - 08/12/2023 2:11 PM EST 1. Superficial keratitis of right eye Diffuse keratitis inferior cornea +extremely dry OD>OS with incomplete blink OD>OS Medications to Start Taking erythromycin (ROMYCIN) 5 mg/gram (0.5 %) ophthalmic ointment Use 1 application in the right eye twotimes a day for 7 days. 2. Dry eye syndrome of bilateral lacrimal glands Recommend continuing artificial tears as prescribed 3. 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 Educated patient to continue care with primary care doctor and/or turkey cleaner to maintain optimum levels as they are important to avoid ocular complications. Encouraged patient to call the office immediately with any changes to vision or visual concerns. Advised to not wait until the next scheduled exam. 4. Pseudophakia of both eyes Clear-monitor 5. Ptosis of right eyelid 6. Myasthenia gravis (HCC) Continue to monitor Patient expressed chest pressure/pain (like heartburn), fatigue and some right arm soreness that started this morning Patient refused calling me calling the ambulance, but promised she would go to the Emergency Room after this appointment (nephew taking her) Follow-up with me in 1 week or sooner as needed Ericka Zamora, JUVENTINO August 12, 2023 2:11 PM documented [facility] Miscellaneous Notes* Telephone Encounter - Mara Degroot LPN - 07/26/2023 4:13 PM EDT Patient has been identified by name and date of : Yes, Provider Hima Date 07/26/23 Time 4:14pm Patient phones for refill(s): Requested Prescriptions Pending Prescriptions Disp Refills meloxicam (MOBIC) 15 mg tablet 30 tablet 1 Sig: Take 1 tablet by mouth once daily as needed for pain. With food. Date of last office visit in primary care: 07/22/2023 Date of next office visit in primary care: 10/11/2023 Last 2 Encounter Wt Readings: Date: Wt: 07/22/2023 103.4 kg (228 lb) 06/28/2023 107 kg (236 lb) Please advise. Thank you. Mara Degroot LPN. documented in this encounterK[facility]10-23-2023 Miscellaneous Notes* Telephone Encounter - Mara Degroot LPN - 07/26/2023 4:11 PM EDT Patient has been identified by name and date of : Yes, Provider Hima Date 07/26/23 Time 4:11pm Patient phones for refill(s): Requested Prescriptions Pending Prescriptions Disp Refills potassium chloride SR (MICRO-K) 10 mEq CR capsule 7 capsule 0 Sig: Take 1 capsule by mouth two times a day. Date of last office visit in primary care: 07/22/2023 Date of next office visit in primary care: 10/11/2023 Last 2 Encounter Wt Readings: Date: Wt: 07/22/2023 103.4 kg (228 lb) 06/28/2023 107 kg (236 lb) Please advise. Thank you. Mara Degroot LPN. documented in this encounterK[facility]10-23-2023 Miscellaneous Notes* Telephone Encounter - Brooke Sanchez RN - 07/26/2023 2:44 PM EDT Requester: Patient Patients last Endocrinology visit occurred 10/21/2022. Follow-up evaluation has been established none Upcoming Endocrinology Appointments - Next 365 Days No appointments to display . Requested Prescriptions Pending Prescriptions Disp Refills insulin aspart U-100 (NOVOLOG FLEXPEN U-100 INSULIN) 100 unit/mL (3 mL) 60 mL 3 Sig: inject 20 units with meals three times a day , PLUS SLIDING SCALE #2 BASED ON PRE-MEAL BLOOD SUGAR (AROUND 80 UNITS PER DAY) If patient is due for an appointment please route to provider for refill consideration and also to the endo scheduling pool. PSS NOTE: Patient needs scheduled appointment Yes, with Jerrica Duenas CNP for Type 2 diabetes in [place]. documented in this encounterK[facility]10-19-2023 Instructions* Patient Instructions* Denise Alvarado APRN.[employer] PRACTICE MANAGER - 07/22/2023 2:06 PM EDT Continue with levothyroxine 200 mcg daily. Take on an empty stomach. Check your level in August Increase your dose of dulaglutide or Trulicity from 1.5 mg once a week to 3 mg once a week with your next refill. Let us know right away if any GI upset nausea vomiting decreased appetite or any other concerning symptoms. documented in this encounterK[facility]10-19-2023 History of Present illness Narrative* Denise Alvarado APRN.CNS - 07/22/2023 1:32 PM EDT SUBJECTIVE: Hepatitis B Vaccine(1 of 3 - 3-dose series) Never done Colorectal Cancer Screening Never done Mammogram Screening due on 03/22/2015 Pneumococcal Vaccine(2 - PCV) due on 04/19/2015 Shingrix Vaccine(1 of 2) Never done Diabetic Foot Exam due on 04/25/2022 Influenza Vaccine(1) due on 06/04/2023 Lung Cancer Screening due on 07/17/2023 HPI Samantha Romero is a 57 year old female. 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 (Hcc) Type 2 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 Macular Edema, Without Long-Term Current Use of Insulin (Hcc) Status Post Cataract Extraction and Insertion of Intraocular Lens of Right Eye Pneumonia Due to Covid-19 Virus Post-Covid Chronic Dyspnea Chronic Hypoxemic Respiratory Failure (Hcc) Myasthenia Gravis (Hcc) Type 2 Diabetes Mellitus With Diabetic Neuropathy, With Long-Term Current Use of Insulin (Hcc) Bilateral Leg Edema Dysuria Gastroesophageal Reflux Disease Chronic Midline Low Back Pain Esophageal Dysphagia Gastroesophageal Reflux Disease With Esophagitis Without Hemorrhage Obesity, Class III, BMI >= 40 Pericardial Effusion Obesity, Class II, Bmi 35-39.9 HPI excerpted from previous visit: She was seen at [facility] emergency department April 09, 2023. She presented with a complaint of weakness. She reported 3 days of fatigue cough and shortness of breath prior to arrival. She reported using oxygen since she had COVID a couple of years ago, normally wearing 2 L continuously. She increased oxygen to 3 L on the day of arrival due to feeling short of breath. She reported occasional chest tightness. No fever chills or GI symptoms reported. No sick contacts. Former smoker. Exam showed increased respiratory rate of 24/min, 2+ bilateral ankle edema pulse ox 92% on 3 L O2. Noted to be tachypneic. Noted chronic ankle edema unchanged from baseline. Labs completed. Showed mild anemia. Glucose elevated at 446. BUN 55 and creatinine 1.77 chest x- ray showed poor inspiration with some bibasilar atelectasis and cardiomegaly. She was treated with DuoNebin the emergency department. Noted that BUN and creatinine were consistent with prior measures. Troponin negative. BNP normal. She was discharged with no change in treatment. She was advised to follow-up with primary care in 5 to 7 days. Shortness of breath: about the same as when seen in ER O2: 3-4L NC Pulse ox at home: no Home readings blood sugar:300 Oral intake/fluids: 20-40 oz/day States did not et today trying to bring glucose levels down. Taking empagliflozin:states yes Novolog flex pen 20 units at meals + SSI-states using as ordered Tresiba:-no recent refills on outside medication review. [facility] has not had for months, [facility] pharmacist told her not avialble At last visit diabetes was noted to be uncontrolled. Trulicity started. She reports taking the first dose 2 days ago. Hypothyroid inadequately treated. Dose of levothyroxine increased at last visit. Today reports that following her last visit with me she started develop increased leg swelling, weight gain, increased shortness of breath. Without report of chest pain palpitations presyncope syncope orthopnea PND. States consistently taking medications. Seen in January 2023 for pericardial effusion by [facility] cardiology. 3 months follow-up echo recommended. Not yet completed. At her last visit her dose of Trulicity was increased. Tolerating : Reports yes, no adverse effects noted. Home BS readings: Reviewed blood sugars on her glucometer show readings in the 350-440 range Today reports taking medications as ordered. Reports significant urine output when taking Lasix. Weight is stable however. Leg swelling is about the same. Has not checked home blood sugars of late. She reports chronic back pain for which she takes Anafore Hemoglobin A1C (%) Date Value 06/28/2023 12.6 03/26/2023 12.4 04/10/2021 8.3 10/25/2020 10.3 Hemoglobin A1C (POCT) (%) Date Value 10/21/2022 11.0 ) Creatinine Date Value Ref Range Status 06/28/2023 1.22 (H) 0.58 - 0.96 mg/dL Final 04/29/2023 1.08 (H) 0.58 - 0.96 mg/dL Final 03/26/2023 0.95 0.58 - 0.96 mg/dL Final 01/15/2023 1.34 (H) 0.58 - 0.96 mg/dL Final Last 14 Encounter BP Readings: Date: BP: 05/17/2023 118/60 04/29/2023 120/68 03/26/2023 112/60 01/25/2023 114/64 01/15/2023 100/54 12/18/2022 126/74 10/26/2022 104/58 09/29/2022 104/60 08/28/2022 93/61 08/24/2022 112/60 07/21/2022 104/62 07/03/2022 94/61 06/26/2022 118/60 04/01/2022 102/68 Review of Systems Constitutional: Positive for fatigue. Respiratory: Positive for shortness of breath. Cardiovascular: Positive for leg swelling (left foot only now; improved). Musculoskeletal: Positive for arthralgias and back pain. Objective BP 97/61 Pulse 69 Resp 16 Wt 103.4 kg (228 lb) LMP 04/27/2016 BMI 39.14 kg/m Physical Exam Vitals and nursing note reviewed. Constitutional: Appearance: Normal appearance. HENT: Head: Normocephalic and atraumatic. Eyes: Conjunctiva/sclera: Conjunctivae normal. Neck: Thyroid: No thyromegaly. Vascular: No JVD. Cardiovascular: Rate and Rhythm: Normal rate and regular rhythm. Heart sounds: No murmur heard. No friction rub. No gallop. Pulmonary: Effort: Pulmonary effort is normal. Breath sounds: Normal breath sounds. Musculoskeletal: Right lower leg: No edema. Left lower leg: Edema (left foot 2+) present. Skin: General: Skin is warm and dry. Neurological: Mental Status: She is alert and oriented to person, place, and time. Mental status is at baseline. ALLERGIES Allergen Reactions Metformin Diarrhea Diarrhea every time takes, even with ER dose Oxycodone GI Upset Percocet [Oxycodone* GI Upset and off balance Medications Insulin [place], Disposable, (DROPLET PEN NEEDLE) 31 gauge x 3/16^use 1 PEN NEEDLE to inject MEDICATION subcutaneously four times a day^Disp: 200 Each^Rfl: 2 levothyroxine (SYNTHROID) 200 mcg tablet^Take 1 tablet by mouth daily before breakfast.^Disp: 90 tablet^Rfl: 3 HYDROcodone-acetaminophen (NORCO) 5-325 mg per tablet^Take 1 tablet by mouth two times a day as needed for pain. Short term increase 07/02 to twice daily due to increased pain from recent fall Do notstart before July 05, 2023.^Disp: 60 tablet^Rfl: 0 Cholecalciferol, Vitamin D3, 125 mcg (5,000 unit) cap^Take 1 capsule by mouth once daily.^Disp: 90 capsule^Rfl: 2 furosemide (LASIX) 40 mg tablet^Take 1 tablet by mouth once daily. for leg swelling^Disp: 30 tablet^Rfl: 1 potassium chloride SR (MICRO-K) 10 mEq CR capsule^Take 1 capsule by mouth twice daily.^Disp: 7 capsule^Rfl: 0 PEG 400-propylene glycol (SYSTANE ULTRA) 0.4-0.3 % ophthalmic solution^Use 1 Drop in both eyes fourtimes daily.^Disp: 15 mL^Rfl: 4 peg 400-propylene glycol (SYSTANE GEL) 0.4-0.3 % drpg^Use 1 Drop in both eyes daily at bedtime.^Disp: 10 mL^Rfl: 2 flash glucose sensor (FREESTYLE TAYLOR 14 DAY SENSOR) kit^Use to check blood sugar 4 times daily. Please give 2 sensors per refill^Disp: 2 Kit^Rfl: 5 blood sugar diagnostic (BLOOD GLUCOSE TEST) test strip^Test blood sugar(s) 4 times daily. Dx: Type 2 DM - Controlled E11.9 Insulin: Yes^Disp: 200 Strip^Rfl: 11 OXYGEN, HOME THERAPY,^Inhale as instructed as directed. Uses at 2 l/m via nasal cannula during the day and 4 l/m at night^Disp: ^Rfl: omeprazole (PRILOSEC) 40 mg capsule^Take 1 capsule by mouth once daily.^Disp: 30 capsule^Rfl: 5 hydroCHLOROthiazide 50 mg tablet^Take 1 tablet by mouth once daily.^Disp: 30 tablet^Rfl: 2 hydrocortisone 2.5 % cream^Apply 1 application to affected area twice daily. Location: hands and chest^Disp: 20 g^Rfl: 0 (Patient taking differently: Apply 1 application to affected area two times a day. Location: hands and chest Uses as needed) blood sugar diagnostic (FREESTYLE LITE STRIPS) test strip^Test blood sugar(s) 4 times daily. Dx: Other DM Code E11.40 Insulin: Yes^Disp: 50 Strip^Rfl: 3 meloxicam (MOBIC) 15 mg tablet^Take 1 tablet by mouth once daily as needed for pain. With food.^Disp: 30 tablet^Rfl: 1 insulin aspart U-100 (NOVOLOG FLEXPEN U-100 INSULIN) 100 unit/mL (3 mL)^inject 20 units with meals three times a day , PLUS SLIDING SCALE #2 BASED ON PRE- MEAL BLOOD SUGAR (AROUND 80 UNITS PER DAY)^Disp: 15 mL^Rfl: 3 Blood-Glucose Meter monitoring kit^Check sugars daily and as needed (Freestyle Lite is what she hashad)^Disp: 1 Each^Rfl: 0 gabapentin (NEURONTIN) 600 mg tablet^Take 1 tablet by mouth twice daily for 180 days. Do not start before April 25, 2023.^Disp: 60 tablet^Rfl: 5 rosuvastatin (CRESTOR) 10 mg tablet^Take 1 tablet by mouth daily at bedtime.^Disp: 30 tablet^Rfl: 11 lisinopril 2.5 mg tablet^Take 1 tablet by mouth once daily.^Disp: 90 tablet^Rfl: 3 hydrOXYzine HCl (ATARAX) 25 mg tablet^Take 1-2 tablets by mouth at bedtime as needed.^Disp: 30 tablet^Rfl: 3 insulin degludec (TRESIBA FLEXTOUCH U-100) 100 unit/mL (3 mL) injection pen^Inject 62 Units subcutaneously daily at bedtime.^Disp: 63 mL^Rfl: 3 empagliflozin (JARDIANCE) 25 mg tablet^Take 1 tablet by mouth daily with breakfast.^Disp: 90 tablet^Rfl: 3 Fenofibrate (LOFIBRA) 160 mg tablet^Take 1 tablet by mouth once daily.^Disp: 30 tablet^Rfl: 11 clotrimazole-betamethasone (LOTRISONE) cream^Apply 1 application to affected area twice daily. X 2 weeks.^Disp: 45 g^Rfl: 0 (Patient taking differently: Apply 1 application to affected area two timesa day. X 2 weeks. Uses as needed) fluticasone (FLONASE) 50 mcg/actuation nasal spray^Use 1-2 Sprays in each nostril once daily as needed.^Disp: 1 Each^Rfl: 11 dicyclomine (BENTYL) 10 mg capsule^Take 1 capsule by mouth before meals and at bedtime. for abdominal pain^Disp: 120 capsule^Rfl: 5 Miscellaneous Medical Supply (BLOOD PRESSURE CUFF)^1 Each as needed. Blood pressure Monitor and Cuff, use as directed. Dx: I10 Hypertension^Disp: 1 Each^Rfl: 0 flash glucose scanning reader (HeyLets TAYLOR 14 DAY READER)^Use to check blood sugar 4 times daily^Disp: 1 Each^Rfl: 0 dulaglutide (TRULICITY) 3 mg/0.5 mL pen injector^Inject 3 mg subcutaneously one time a week.^Disp: 4 Each^Rfl: 2 blood sugar diagnostic (BLOOD GLUCOSE TEST) test strip^Test blood sugar(s) 4 times daily. Dx: OtherDM Code E11.40 Insulin: Yes^Disp: 50 Strip^Rfl: 11 Lancets lancets^Test blood sugar(s) 4 times daily. Dx: E11.9 Insulin: Yes^Disp: 200 Each^Rfl: 11 estradiol (ESTRACE) 0.01 % (0.1 mg/gram) vaginal cream^Use 3 g vaginally two times a week.^Disp: 42.5 g^Rfl: 6 PAST MEDICAL HISTORY Diagnosis Date Chronic hypoxemic respiratory failure (HCC) COVID-19 07/06/2021 HTN (hypertension) Hyperlipidemia 04/05/2014 Hypothyroid 04/19/2014 Kidney stone on left side 04/12/2014 Myasthenia gravis (HCC) OA (osteoarthritis) of hip, bilateral 04/04/2014 Type II or unspecified type diabetes mellitus without mention of complication, uncontrolled 04/05/2014 Social History Tobacco Use Smoking status: Former Packs/day: 1.00 Years: 30.00 Additional pack years: 0.00 Total pack years: 30.00 Types: Cigarettes Quit date: 11/04/2013 Years since quittin.7 Smokeless tobacco: Never Vaping Use Vaping Use: Never used Substance Use Topics Alcohol use: Not Currently Comment: wine cool every once in a while Drug use: No Component Latest Ref Rng & Units 03/26/2023 04/29/2023 05/17/2023 06/28/2023 Protein, Total 6.3 - 8.0 g/dL 7.1 7.1 Albumin 3.9 - 4.9 g/dL 4.2 4.0 Calcium 8.5 - 10.2 mg/dL 9.2 10.1 9.6 Bilirubin, Total 0.2 - 1.3 mg/dL 0.2 0.2 Alkaline Phosphatase 34 - 123 U/L 66 80 AST 13 - 35 U/L 25 17 ALT 7 - 38 U/L 25 23 Glucose 74 - 99 mg/dL 316 (H) 339 (H) 377 (H) BUN 7 - 21 mg/dL 32 (H) 36 (H) 45 (H) Creatinine 0.58 - 0.96 mg/dL 0.95 1.08 (H) 1.22 (H) Sodium 136 - 144 mmol/L 139 135 (L) 136 Potassium 3.7 - 5.1 mmol/L 4.3 4.1 4.4 Chloride 97 - 105 mmol/L 99 96 (L) 97 CO2 22 - 30 mmol/L 24 26 21 (L) Anion Gap 9 - 18 mmol/L 16 13 18 eGFR >=60 mL/min/1.73m 70 60 52 (L) WBC 3.70 - 11.00 k/uL 5.05 RBC 3.90 - 5.20 m/uL 4.01 Hemoglobin 11.5 - 15.5 g/dL 10.9 (L) Hematocrit 36.0 - 46.0 % 35.2 (L) MCV 80.0 - 100.0 fL 87.8 MCH 26.0 - 34.0 pg 27.2 MCHC 30.5 - 36.0 g/dL 31.0 RDW-CV 11.5 - 15.0 % 15.0 Platelet Count 150 - 400 k/uL 135 (L) MPV 9.0 - 12.7 fL 11.4 Absolute nRBC <0.01 k/uL <0.01 Total Cholesterol, Nonfasting <200 mg/dL 223 (H) Triglycerides, Nonfasting <150 mg/dL 521 (H) HDL Cholesterol, Nonfasting >39 mg/dL 39 (L) LDL Cholesterol, Nonfasting Non HDL Cholesterol, Nonfasting <130 mg/dL 184 (H) VLDL Cholesterol, Nonfasting Total Chol/HDL Ratio, Nonfasting <5.10 mg/dL 5.72 (H) LDL/HDL Ratio, Nonfasting Creatinine, Ur Random (UCRR) 20.0 - 300.0 mg/dL 36.3 Albumin, Urine Random mg/L 329.1 Albumin/Creat Ratio <30 mg/g 907 (H) Hemoglobin A1C 4.3 - 5.6 % 12.4 (H) 12.6 (H) Estimated Average Glucose mg/dL 309 315 Vitamin D 25 Hydroxy 31.0 - 80.0 ng/mL 10.9 (L) 12.4 (L) TSH 0.270 - 4.200 mIU/L 9.630 (H) 28.600 (H) 56.100 (H) Free T4 0.9 - 1.7 ng/dL 1.3 Free T3 2.3 - 4.1 pg/mL 1.9 (L) NT Pro BNP <125 pg/mL <36 ASSESSMENT/PLAN: 1. Encounter for immunization - ICD9: V03.89, ICD10: Z23 (primary diagnosis) - PNEUMOCOCCAL VACCINE (PREVNAR 20) - ZOSTER VACCINE, RECOMBINANT (SHINGRIX) - INFLUENZA VACCINE, AGE 6 MO - 64 YR, QUADRIVALENT (AFLURIA, FLULAVAL, FLUZONE) 2. Screening for colon cancer - ICD9: V76.51, ICD10: Z12.11 Declined at this time 3. Encounter for screening for lung cancer - ICD9: V76.0, ICD10: Z12.[address] July 2022, declined at this time 4. 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) - ICD9: 250.50, 362.05, 362.07, ICD10: E11.3319 Continues with uncontrolled diabetes on her CGM, ranging in the 300-400 range currently. Recommend increase dulaglutide from 1.5 mg to 3 mg with next refill. A1c in September - HGB A1C - DULAGLUTIDE 3 MG/0.5 ML SUBCUTANEOUS PEN INJECTOR 5. Acquired hypothyroidism - ICD9: 244.9, ICD10: E03.9 Increased from levothyroxine 175 mcg to 200 mcg daily, first fill July 07. - Instructed patient on importance of taking on an empty stomach either first thing in the morning or at bedtime. - check TSH in 6 weeks Lower extremity edema is decreased. Return to clinic for recheck August or September. Keep appointment with PCP in October. A1c in September TSH in August Denise Alvarado APRN.QUALITY ASSURANCE PRACTICE MANAGER Medical Decision Making: Problems: Moderate: 2+ stable chronic illnesses Data: Unique test(s) ordered: 1 Risk: Moderate: Drug management Medical Decision Making Level: 4 - Moderate documented in this encounterK[facility]23 Miscellaneous Notes* Telephone Encounter - Alicja Padgett LPN - 07/13/2023 1:20 PM EDT Sent patient MyChart message to schedule apt. * Telephone Encounter - Monty Douglas MD - 07/13/2023 11:55 AM EDT Needs appt * Telephone Encounter - Alicja Padgett LPN - 07/13/2023 11:08 AM EDT Attempted to call patient and schedule appointment, voicemail box is full and unable to leave message. documented in this encounterK[facility]09-29-2023 Miscellaneous Notes* Telephone Encounter - Vanessa Heredia - 07/02/2023 4:34 PM EDT Spoke with the patient and gave message below and she stated she still has 10 pills left from last refill she uses [facility] in [place]. * Telephone Encounter - Rosa Elena Deluca LPN - 07/02/2023 3:31 PM EDT Attempted to reach patient with no answer and unable to leave a message due to mailbox is full. * Telephone Encounter - Cole Bower APRN.CNP - 07/02/2023 2:49 PM EDT Please let her know okay to increase norco short term to twice daily. Let us know when the new refill is needed. * Telephone Encounter - Alicja Robin RN - 07/02/2023 8:25 AM EDT Pt called and is notified of providers results and instructions. Pt voices understanding. She states Dr Soares told her there was nothing he could do for her. She said she reported to this provider she had fallen again and she is having increased pain in her lower back. Dr Soares told Pt she would have to ask prescribing provider about increasing her pain medication. Pt is now on Reynolds 1 tab daily PRN for pain. She was asking if she could get is increased to at least twice a day and more than 30 days. Pt reports when she's sitting or laying in bed her pain is a 4/10 otherwise it is an 8-9/10 constant sharp pain. She reports at times she feels like she can barely walk. Please call and advise. Alicja Robin, RN * Telephone Encounter - Cole Bower APRN.CNP - 07/02/2023 8:01 AM EDT Okay, she could likely still benefit from an increase in her synthroid. Next refill she will start the 200 mcg daily dose. New script has been sent. Ok to finish out current supply of the 175 mcg dose. * Telephone Encounter - Iraida Pena RN - 07/01/2023 12:07 PM EDT Patient notified of results and provider's instructions. Patient verbalizes understanding. Patient states that she had previously missed a couple doses. Patient thinks that now she is takingwith her other pills she won't miss doses. Patient is currently taking levothyroxine 175 mcg. Iraida Pena RN * Telephone Encounter - Kristen Bronson LPN - 07/01/2023 11:20 AM EDT 3rd attempt to reach pt by phone without success. Mailbox is full. Spoke with [facility] Emergency contact and she will have the pt call the office. Kristen Bronson LPN * Telephone Encounter - Kristen Bronson LPN - 06/30/2023 10:52 AM EDT 2nd attempt to reach pt by phone without success. Mailbox is full. Try later. Kristen Bronson LPN * Telephone Encounter - Rosa Elena Deluca LPN - 06/29/2023 4:30 PM EDT Attempted to reach patient with no answer and unable to leave a message due to mailbox is full. * Telephone Encounter - Cole Bower APRN.CNP - 06/29/2023 4:19 PM EDT Please call Mari and let her know her labs are back. Her hgba1c is 12.6% (up from 12.4%) but adjusting her Trulicity should improve this. Kidneys, liver, and electrolytes are stable. Vitamin d is low. I sent in a vitamin d supplement for her to start. The thyroid labs show she has a very underactive thyroid. Has she missed any doses of her synthroid? documented in this encounterK[facility]09-28-2023 NoteHNO ID: [id number] Author: Helene Chapa LPN Service: ? Author Type: LICENSED NURSE Type: Progress Notes Filed: 07/01/2023 2:38 PM Note Text: Review of Systems Constitutional: Positive for activity change. Negative for chills, fever and unexpected weight change. Gastrointestinal: Negative for bowel retention or incontinence Genitourinary: Negative for difficulty urinating. Negative for bladder retention or incontinence Musculoskeletal: Positive for back pain, gait problem and joint swelling. Negative for arthralgias, myalgias, neck pain and neck stiffness. Neurological: Positive for weakness and numbness. Negative for headaches. Psychiatric/Behavioral: Positive for sleep disturbance. Negative for dysphoric mood and suicidal ideas. The patient is not nervous/anxious.[facility]09-28-2023 History of Present illness Narrative* Karlee Pak RT(R) - 07/01/2023 2:50 PM EDT Radiology Service Progress Note PATIENT NAME: Samantha Romero DATE OF SERVICE: July 01, 2023 TIME: 3:19 PM PATIENT IDENTITY VERIFICATION COMPLETED USING TWO (2) IDENTIFIERS: Name and Date of confirmedby patient verbally. FALL SCREENING: Has the patient had 2 falls in the last year or 1 fall with injury or currently using an Ambulatory Assistive Device (Walker, Cane, Wheelchair, Crutches, etc.)? Yes, Patient High Riskfor Falls What interventions were put in place to prevent falls during this visit? Offered Assistance with Transfers/Clothing, Instructed Patient to Remain Seated (Not on Exam Table) Until Exam, and Increased Observations by Caregivers PATIENT GENDER DATA: Female. status: : No status: NO. PATIENT RELEVANT IMPLANT DATA REVIEWED: Not Applicable RADIOLOGY DEPARTMENT: Lumbar Ap/LAT/FLEX/EXT NON WT BEARING PERIPHERAL IV DATA: Not applicable SIGNED BY: RT Tierney(R) July 01, 2023 3:19 PM documented in this encounterK[facility]09-28-2023 History of Present illness Narrative* Helene Chapa LPN - 07/01/2023 2:14 PM EDT Review of Systems Constitutional: Positive for activity change. Negative for chills, fever and unexpected weight change. Gastrointestinal: Negative for bowel retention or incontinence Genitourinary: Negative for difficulty urinating. Negative for bladder retention or incontinence Musculoskeletal: Positive for back pain, gait problem and joint swelling. Negative for arthralgias,myalgias, neck pain and neck stiffness. Neurological: Positive for weakness and numbness. Negative for headaches. Psychiatric/Behavioral: Positive for sleep disturbance. Negative for dysphoric mood and suicidal ideas. The patient is not nervous/anxious. * Jaida Soares MD - 06/30/2023 4:37 PM EDT Images from the original note were not included. [facility] Today's Date: 07/01/2023 Last Visit: N/A Name: Samantha Romero : 1965 Purpose: New Patient Consultation Chief complaint: low back pain Pain Description: Timing: intermittant Character: aching and sharp Primary Location: axial low back Radiation: bilateral buttocks Exacerbating factors: standing and walking Relieving factors: sitting and lying down Interferes with: physical activity The patient denies difficulty with bowel or bladder control, unintentional weight loss, and fevers,chills, or night sweats. Notable Events During Course of Treatment: 06/30/2023 - Initial HPI: Referred by Sarina Adams MD, for evaluation & management of low back pain Duration: 1 year Sudden onset? no, Trauma? no Prior Treatments: Medications (See below), Modalities (eg. Heat, Ice), Home Exercise Program , and Activity Modification She was diagnosed with peripheral neuropathy, no prior EMG. She is on O2 continuously for post-COVID chronic dyspnea INTAKE PAIN ASSESSMENT 06/28/2023 07/01/2023 Are you having pain associated with your visit today? Yes, Provider notified Yes, Provider notified Pain Scales Verbal (Numeric Rating or Visual Analog Scale) Verbal (Numeric Rating or Visual Analog Scale) Pain Level 8 6 Pain Location Back Back-Lower Description Sharp Stabbing;Sharp;Aching;Radiating Duration Amount of Time 10 - Duration Units Days Years Frequency Continuous Intermittent Intervention/Comfort measure Medication Medication;Reposition;Relaxation Comments - - Pain Assessment - - Medications: CURRENT Pain Medications: Reynolds 5/325mg once daily PRN (PCP) Mobic 15mg PRN (PCP) Gabapentin 600mg BID - for peripheral neuropathy (PCP) Pain Medications Taken TO DATE (for the chief complaint(s)): Membrane Stabilizers: Neurontin (Gabapentin) NSAIDS: Naprosyn (Naproxen) and Mobic (Meloxicam) Opioids: Vicodin or Reynolds (Hydrocodone) Muscle Relaxants: Zanaflex (Tizanidine) Topicals: none Other Prescription or OTC Pain Medications: Aspirin Anti-depressants: none Non-Pain Meds of Note: Lasix Allergies: ALLERGIES Allergen Reactions Metformin Diarrhea Diarrhea every time takes, even with ER dose Oxycodone GI Upset Percocet [Oxycodone* GI Upset and off balance Compliance: PDMP website checked and validated. All prescriptions have been APPROPRIATELY filled. No suspiciousactivity was identified. on 07/01/2023 by Jaida Soares MD Reynolds 5/325, #30 (06/24/2023, 05/25/2023, 04/25/2023)... (PCP) Recent Drug screens: AG SPINE COMBINATION 07/01/2023 Questionnaire GREENLIGHT Completed Date 07/01/2023 Questionnaire Opiod Risk Tool Completed Date 07/01/2023 Risk Assessment: CHRISTIAN-7: CHRISTIAN - 7 SCORES 07/01/2023 CHRISTIAN-7 Score 2 (0-4) minimal anxiety, (5-9) mild anxiety, (10-14) moderate anxiety, (15-21) severe anxiety PHQ-9: PHQ-9 12/14/2022 07/01/2023 Score 4 2 (0-4) minimal depression, (5-9) mild depression, (10-14) moderate depression, (15-19) moderately severe depression, (20-27) severe depression Opioid Risk Tool: Family History of Substance Abuse: 0 - No Personal History of Substance Abuse: 0 - No Age between 16-45: 0 - No History of Pre-Adolescence Sexual Abuse: 0 - No Psychological Disease: 0 - No Risk Total: 0 Total Score Risk Category: Low Risk 0-3 (0-3, low risk or no risk; 4-7, moderate risk, 8+, high risk) Diagnostic Studies: Relevant Imaging: Reviewed Personally on today's date, noted above MRI Spine Report No resulted procedures found. Electrodiagnostic Study (EMG): None Recent Labs: Creatinine Date Value Ref Range Status 06/28/2023 1.22 (H) 0.58 - 0.96 mg/dL Final No results found for: GFR Glucose, Point of Care Date Value Ref Range Status 06/26/2015 223 (A) 65 - 100 mg/dL Final Pain Procedures: DATE PROCEDURE IMPROVEMENT None to date at this practice Current Medications, Past Medical History, Past Surgical History, Family History, Social History and Review of Systems: On today's date, noted above, I have confirmed and edited as necessary, the PFSH and ROS obtained by others. Physical Exam: 07/01/23 1418 Pulse: 75 Resp: 18 SpO2: 93% Constitutional:morbidly obese Eyes: Conjunctiva clear. No discharge from eyes Cardiovascular: Appears well perfused Lymphatic: No visible regional lymphadenopathy Skin: No visible rashes or ecchymosis Psychiatric: Full affect, Alert, Pleasant Neuro-Lower: Neural Tension Signs: Negative slump in Bilateral lower limbs Sensation: intact to light touch in the L2-S2 Bilateral lower limb dermatomes Muscle Tone: Normal and symmetric throughout without clonus Strength: Iliopsoas (L2): 5 Left, 5 Right Quadriceps (L3) 5 Left, 5 Right Anterior Tibialis (L4): 5 Left, 5 Right Extensor Hallucis Longus (L5): 5 Left, 5 Right Gastrocnemius (S1): 5 Left, 5 Right Musculoskeletal-Lower: Inspection: Symmetric without atrophy Palpation: Lumbar Paraspinal Tenderness: Concordant on Bilateral side(s) Paraspinal Spasms: Mild PSIS Tenderness: None on Bilateral side(s) Greater Trochanter Tenderness: Discordant on Bilateral side(s) Spine Range of Motion: Flexion: Decreased 75% Without end range pain Extension: Decreased 75% With end range pain Combination extension and rotation pain: Concordant Hip Range of Motion: Right Hip: Internal Rotation: Normal; Pain at end range: None External Rotation: Normal; Pain at end range: None Left Hip: Internal Rotation: Normal; Pain at end range: None External Rotation: Normal; Pain at end range: None Sacroiliac Maneuvers: Deferred Diagnoses: (M47.816) Lumbar spondylosis (primary encounter diagnosis) (M79.18) Myofascial pain Pertinent Past Medical History: Uncontrolled type 2 diabetes with neuropathy, Myasthenia gravis, HLD, HTN, Pericardial effusion, Post-COVID chronic dyspnea, GERD, Hypothyroid, Diabetic retinopathy with macular edema, OA bilat hips, Bilateral leg edema, Chronic midline low back pain, Obesity, Impression: 57 year old female presents with complaint(s) of axial low back pain, facet-mediated. On O2 for chronic dyspnea post-COVID. She reports she has difficulty getting transportation for PT orinjections. Plan: Samantha Romero would benefit from the following to reach personal goals for decreasing pain, improving function and work participation, and/or improving quality of life: -Interventional Procedure: none The risks, benefits, alternative treatment options and prognosis of the procedure were discussed and all of the patient's questions/concerns were addressed to the patient s satisfaction. Patient was advised that they will need a high lift driver for after the procedure and that if no high lift driver is available and on site at the time of the procedure, the procedure will be cancelled. For any anticoagulants, the patient was advised on whether to continue or hold for this procedure. The patient expressed understanding and gave verbal consent to proceed. Medication(s): Reynolds 5/325mg once daily PRN - advised her to avoid opioids given she is on O2 and opioids are contraindicated for chronic, non-malignant MSK pain Mobic 15mg PRN (PCP) - advised to continue Gabapentin 600mg BID (PCP) - advised to continue Additional Studies: X-ray lumbar spine Referrals: No additional considerations at present Functional Denominational: Physical Therapy (Land-based) - Recommended, patient declined Depending on response to the above plan, consider: PT, Injections - both offered today, declined -Follow-up: PRN basis Attribution: In addition to reviewing the information noted above, some elements copied from my most recent clinical note(s), including the physical exam (completed in entirety today), and the impression and plan sections, have been updated where appropriate. All reflect current medical decision making from today's date. Jaida Soares MD Pain Management [facility], [facility] documented in this encounterK[facility]09-27-2023 NoteHNO ID: [id number] Author: Jaida Soares MD Service: ? Author Type: Physician Type: Progress Notes Filed: 07/01/2023 2:38 PM Note Text: [facility] Today's Date: 07/01/2023 Last Visit: N/A Name: Samantha Romero : 1965 Purpose: New Patient Consultation Chief complaint: low back pain Pain Description: Timing: intermittant Character: aching and sharp Primary Location: axial low back Radiation: bilateral buttocks Exacerbating factors: standing and walking Relieving factors: sitting and lying down Interferes with: physical activity The patient denies difficulty with bowel or bladder control, unintentional weight loss, and fevers, chills, or night sweats. Notable Events During Course of Treatment: 06/30/2023 - Initial HPI: Referred by Sarina Adams MD, for evaluation AND management of low back pain Duration: 1 year Sudden onset? no, Trauma? no Prior Treatments: Medications (See below), Modalities (eg. Heat, Ice), Home Exercise Program , and Activity Modification She was diagnosed with peripheral neuropathy, no prior EMG. She is on O2 continuously for post-COVID chronic dyspnea INTAKE PAIN ASSESSMENT 06/28/2023 07/01/2023 Are you having pain associated with your visit today? Yes, Provider notified Yes, Provider notified Pain Scales Verbal (Numeric Rating or Visual Analog Scale) Verbal (Numeric Rating or Visual Analog Scale) Pain Level 8 6 Pain Location Back Back-Lower Description Sharp Stabbing;Sharp;Aching;Radiating Duration Amount of Time 10 - Duration Units Days Years Frequency Continuous Intermittent Intervention/Comfort measure Medication Medication;Reposition;Relaxation Comments - - Pain Assessment - - Medications: CURRENT Pain Medications: Reynolds 5/325mg once daily PRN (PCP) Mobic 15mg PRN (PCP) Gabapentin 600mg BID - for peripheral neuropathy (PCP) Pain Medications Taken TO DATE (for the chief complaint(s)): Membrane Stabilizers: Neurontin (Gabapentin) NSAIDS: Naprosyn (Naproxen) and Mobic (Meloxicam) Opioids: Vicodin or Reynolds (Hydrocodone) Muscle Relaxants: Zanaflex (Tizanidine) Topicals: none Other Prescription or OTC Pain Medications: Aspirin Anti-depressants: none Non-Pain Meds of Note: Lasix Allergies: ALLERGIES Allergen Reactions Metformin Diarrhea Diarrhea every time takes, even with ER dose Oxycodone GI Upset Percocet [Oxycodone* GI Upset and off balance Compliance: PDMP website checked and validated. All prescriptions have been APPROPRIATELY filled. No suspicious activity was identified. on 07/01/2023 by Jaida Soares MD Reynolds 5/325, #30 (06/24/2023, 05/25/2023, 04/25/2023)... (PCP) Recent Drug screens: AG SPINE COMBINATION 07/01/2023 Questionnaire GREENLIGHT Completed Date 07/01/2023 Questionnaire Opiod Risk Tool Completed Date 07/01/2023 Risk Assessment: CHRISTIAN-7: CHRISTIAN - 7 SCORES 07/01/2023 CHRISTIAN-7 Score 2 (0-4) minimal anxiety, (5-9) mild anxiety, (10-14) moderate anxiety, (15-21) severe anxiety PHQ-9: PHQ-9 12/14/2022 07/01/2023 Score 4 2 (0-4) minimal depression, (5-9) mild depression, (10-14) moderate depression, (15-19) moderately severe depression, (20-27) severe depression Opioid Risk Tool: Family History of Substance Abuse: 0 - No Personal History of Substance Abuse: 0 - No Age between 16-45: 0 - No History of Pre-Adolescence Sexual Abuse: 0 - No Psychological Disease: 0 - No Risk Total: 0 Total Score Risk Category: Low Risk 0-3 (0-3, low risk or no risk; 4-7, moderate risk, 8+, high risk) Diagnostic Studies: Relevant Imaging: Reviewed Personally on today's date, noted above MRI Spine Report No resulted procedures found. Electrodiagnostic Study (EMG): None Recent Labs: Creatinine Date Value Ref Range Status 06/28/2023 1.22 (H) 0.58 - 0.96 mg/dL Final No results found for: GFR Glucose, Point of Care Date Value Ref Range Status 06/26/2015 223 (A) 65 - 100 mg/dL Final Pain Procedures: DATE PROCEDURE IMPROVEMENT None to date at this practice Current Medications, Past Medical History, Past Surgical History, Family History, Social History and Review of Systems: On today's date, noted above, I have confirmed and edited as necessary, the PFSH and ROS obtained by others. Physical Exam: 07/01/23 1418 Pulse: 75 Resp: 18 SpO2: 93% Constitutional:morbidly obese Eyes: Conjunctiva clear. No discharge from eyes Cardiovascular: Appears well perfused Lymphatic: No visible regional lymphadenopathy Skin: No visible rashes or ecchymosis Psychiatric: Full affect, Alert, Pleasant Neuro-Lower: Neural Tension Signs: Negative slump in Bilateral lower limbs Sensation: intact to light touch in the L2-S2 Bilateral lower limb dermatomes Muscle Tone: Normal and symmetric throughout without clonus Strength: Iliopsoas (L2): 5 Left, 5 Right Quadriceps (L3) 5 Left, 5 Right Anterior Tibialis (L4): 5 L (more content not included)...[facility]09-25-2023 History of Present illness Narrative* Cole Bower APRN.ADVISORY SOFTWARE ENGINEER - 06/28/2023 1:58 PM EDT SUBJECTIVE Samantha Romero is a 57 year old female here today for a check up on her medical problems. Chief Complaint Patient presents with: F/U 3 Month HPI Samantha Romero is a 57 year old female established patient who presents today for a 3 month follow upfrom being seen with Sarina Adams MD 03/26/2023. However, since that visit, she has been seen on several occasions. End of April was in [facility], follow up for pericardial effusion. Had labs this am. No more shortness of breath than her normal. Follows with pulmonary and cardiology. ECHO in May. With EF 60%. On supplemental o2, using 2 l/m. Some swelling in the feet/legs. Last hgba1c was 12.4%. Sore, recent fall from out of bed last week. Did not hit head. Did not pass out or black out. Blood sugars running 300-400 average. Her medications were reviewed today and her list is now up to date. Medications Current Outpatient Medications Medication Sig HYDROcodone-acetaminophen (NORCO) 5-325 mg per tablet Take 1 tablet by mouth once daily as needed for pain for up to 30 days. potassium chloride SR (MICRO-K) 10 mEq CR capsule Take 1 capsule by mouth twice daily. PEG 400-propylene glycol (SYSTANE ULTRA) 0.4-0.3 % ophthalmic solution Use 1 Drop in both eyes fourtimes daily. peg 400-propylene glycol (SYSTANE GEL) 0.4-0.3 % drpg Use 1 Drop in both eyes daily at bedtime. omeprazole (PRILOSEC) 40 mg capsule Take 1 capsule by mouth once daily. levothyroxine (SYNTHROID) 175 mcg tablet Take 1 tablet by mouth daily before breakfast. hydroCHLOROthiazide 50 mg tablet Take 1 tablet by mouth once daily. hydrocortisone 2.5 % cream Apply 1 application to affected area twice daily. Location: hands and chest (Patient taking differently: Apply 1 application to affected area twice daily. Location: hands and chest Uses as needed) meloxicam (MOBIC) 15 mg tablet Take 1 tablet by mouth once daily as needed for pain. With food. insulin aspart U-100 (NOVOLOG FLEXPEN U-100 INSULIN) 100 unit/mL (3 mL) inject 20 units with meals three times a day , PLUS SLIDING SCALE #2 BASED ON PRE- MEAL BLOOD SUGAR (AROUND 80 UNITS PER DAY) gabapentin (NEURONTIN) 600 mg tablet Take 1 tablet by mouth twice daily for 180 days. Do not start before April 25, 2023. rosuvastatin (CRESTOR) 10 mg tablet Take 1 tablet by mouth daily at bedtime. lisinopril 2.5 mg tablet Take 1 tablet by mouth once daily. hydrOXYzine HCl (ATARAX) 25 mg tablet Take 1-2 tablets by mouth at bedtime as needed. insulin degludec (TRESIBA FLEXTOUCH U-100) 100 unit/mL (3 mL) injection pen Inject 62 Units subcutaneously daily at bedtime. empagliflozin (JARDIANCE) 25 mg tablet Take 1 tablet by mouth daily with breakfast. Fenofibrate (LOFIBRA) 160 mg tablet Take 1 tablet by mouth once daily. clotrimazole-betamethasone (LOTRISONE) cream Apply 1 application to affected area twice daily. X 2 weeks. (Patient taking differently: Apply 1 application to affected area twice daily. X 2 weeks. Uses as needed) fluticasone (FLONASE) 50 mcg/actuation nasal spray Use 1-2 Sprays in each nostril once daily as needed. dicyclomine (BENTYL) 10 mg capsule Take 1 capsule by mouth before meals and at bedtime. for abdominal pain pyridostigmine (MESTINON) 60 mg tablet Take 1 tablet by mouth three times daily. (Patient taking differently: Take 60 mg by mouth three times daily. Patient states she does not take it when she leaves the house due to side effects.) estradiol (ESTRACE) 0.01 % (0.1 mg/gram) vaginal cream Use 3 g vaginally two times a week. dulaglutide (TRULICITY) 1.5 mg/0.5 mL pen injector Inject 1.5 mg subcutaneously one time a week. furosemide (LASIX) 40 mg tablet Take 1 tablet by mouth once daily. for leg swelling flash glucose sensor (FREESTYLE TAYLOR 14 DAY SENSOR) kit Use to check blood sugar 4 times daily. Please give 2 sensors per refill blood sugar diagnostic (BLOOD GLUCOSE TEST) test strip Test blood sugar(s) 4 times daily. Dx: Type 2 DM - Controlled E11.9 Insulin: Yes OXYGEN, HOME THERAPY, Inhale as instructed as directed. Uses at 2 l/m via nasal cannula during the day and 4 l/m at night blood sugar diagnostic (FREESTYLE LITE STRIPS) test strip Test blood sugar(s) 4 times daily. Dx: Other DM Code E11.40 Insulin: Yes Blood-Glucose Meter monitoring kit Check sugars daily and as needed (Freestyle Lite is what she hashad) Lancets lancets Test blood sugar(s) 4 times daily. Dx: E11.9 Insulin: Yes Insulin [place], Disposable, (BD ULTRAFINE III MINI PEN) 31 gauge x 3/16 inject 1 subcutaneously four times a day Miscellaneous Medical Supply (BLOOD PRESSURE CUFF) 1 Each as needed. Blood pressure Monitor and Cuff, use as directed. Dx: I10 Hypertension flash glucose scanning reader (FREESTYLE TAYLOR 14 DAY READER) Use to check blood sugar 4 times daily Current Facility-Administered Medications Medication Dose Route Frequency perflutren lipid microspheres 1.3 mL in NaCl (PF) 0.9% 10 mL injection (DEFINITY) INTRAVENOUS DIRECTED PRN sodium chloride 0.9 % (flush) 10 mL (BD POSIFLUSH) 10 mL INTRAVENOUS DIRECTED PRN sodium chloride 0.9 % (flush) 10 mL (BD POSIFLUSH) 10 mL INTRAVENOUS DIRECTED PRN sodium chloride 0.9 % (flush) 10 mL (BD POSIFLUSH) 10 mL INTRAVENOUS DIRECTED PRN sodium chloride 0.9 % (flush) 10 mL (BD POSIFLUSH) 10 mL INTRAVENOUS DIRECTED PRN ALLERGIES Allergen Reactions Metformin Diarrhea Diarrhea every time takes, even with ER dose Oxycodone GI Upset Percocet [Oxycodone* GI Upset and off balance ACTIVE PROBLEM LIST Hypothyroid - 04/19/2014 (A priority) Diabetic Eye Exam (Hcc) - 04/05/2014 (A priority) Hyperlipidemia - 04/05/2014 (A priority) Kidney Stone On Left Side - 04/12/2014 (C priority) Comment: Dr. Ash is her doctor. Routine Gynecological Examination - 04/04/2014 (D priority) Comment: Seeing Dr. Deluca. Pericardial Effusion - 01/25/2023 Obesity, Class II, Bmi 35-39.9 - 01/25/2023 Obesity, Class III, BMI >= 40 - 12/18/2022 Gastroesophageal Reflux Disease - 10/19/2022 Chronic Midline Low Back Pain - 10/19/2022 Esophageal Dysphagia - 10/19/2022 Gastroesophageal Reflux Disease With Esophagitis Without Hemorrhage - 10/19/2022 Comment: Intermittent reflux Myasthenia Gravis ([facility]) - 07/30/2022 Type 2 Diabetes Mellitus With Diabetic Neuropathy, With Long-Term Current Use of Insulin ([facility]) - 07/30/2022 Bilateral Leg Edema - 07/30/2022 Comment: worse on left Dysuria - 07/30/2022 Comment: Follow up with gynecology 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 Chronic Hypoxemic Respiratory Failure ([facility]) - 12/09/2021 Pneumonia Due to Covid-19 Virus - 08/05/2021 Status Post Cataract Extraction and Insertion of Intraocular Lens of Right Eye - 06/03/2021 Combined Forms of Age-Related Cataract of Left Eye - 05/09/2021 Type 2 Diabetes Mellitus With Moderate Nonproliferative Diabetic Retinopathy With Macular Edema ([facility]) - 05/09/2021 Type 2 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 Macular Edema, Without Long-Term Current Use of Insulin ([facility]) - 05/09/2021 Uncontrolled Type 2 Diabetes With Neuropathy - 08/20/2015 Abnormally Small Mouth - 06/24/2015 Essential Hypertension - 06/24/2015 Obesity - 06/24/2015 Thrombocytopenia (Hcc) - 06/24/2015 Noncompliance - 10/17/2014 OA (osteoarthritis) of hip, bilateral - 04/04/2014 Social History Tobacco Use Smoking status: Former Packs/day: 1.00 Years: 30.00 Additional pack years: 0.00 Total pack years: 30.00 Types: Cigarettes Quit date: 11/04/2013 Years since quittin.6 Smokeless tobacco: Never Vaping Use Vaping Use: Never used Substance Use Topics Alcohol use: Not Currently Comment: wine cool every once in a while Drug use: No Review of Systems Constitutional: Negative. Respiratory: Negative. Cardiovascular: Negative. OBJECTIVE BP 108/58 Pulse 69 Wt 236 lb (107.0kg) SpO2 94% LMP 04/27/2016 Physical Exam Vitals and nursing note reviewed. Constitutional: General: She is awake. She is not in acute distress. Appearance: Normal appearance. She is well-developed and well-groomed. She is not ill-appearing, toxic-appearing or diaphoretic. Interventions: Nasal cannula in place. HENT: Head: Normocephalic. Right Ear: External ear normal. Left Ear: External ear normal. Nose: Nose normal. Eyes: General: Vision grossly intact. Conjunctiva/sclera: Conjunctivae normal. Pupils: Pupils are equal, round, and reactive to light. Neck: Vascular: No JVD. Trachea: Trachea normal. Cardiovascular: Rate and Rhythm: Normal rate and regular rhythm. Pulses: Normal pulses. Heart sounds: Normal heart sounds. No murmur heard. Pulmonary: Effort: Pulmonary effort is normal. No accessory muscle usage, prolonged expiration or respiratory distress. Breath sounds: Normal breath sounds. Musculoskeletal: Cervical back: Neck supple. Right lower leg: Edema present. Left lower leg: Edema present. Skin: General: Skin is warm and dry. Capillary Refill: Capillary refill takes less than 2 seconds. Neurological: General: No focal deficit present. Mental Status: She is alert and oriented to person, place, and time. Mental status is at baseline. Psychiatric: Attention and Perception: Attention and perception normal. Mood and Affect: Mood and affect normal. Speech: Speech normal. Behavior: Behavior normal. Behavior is cooperative. Thought Content: Thought content normal. Cognition and Memory: Cognition and memory normal. Judgment: Judgment normal. ASSESSMENT/PLAN: 1. 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) - ICD9: 250.50, 362.05, 362.07, ICD10: E11.3319 (primary diagnosis) Increase her Trulicity to better control sugars. - DULAGLUTIDE 1.5 MG/0.5 ML SUBCUTANEOUS PEN INJECTOR - COMP METABOLIC PANEL 2. Leg swelling - ICD9: 729.81, ICD10: M79.89 Use lasix more often, more tablets given with this refill. - FUROSEMIDE 40 MG TABLET - COMP METABOLIC PANEL 3. Pericardial effusion - ICD9: 423.9, ICD10: I31.39 - FUROSEMIDE 40 MG TABLET 4. Fall, initial encounter - ICD9: E888.9, ICD10: W19.XXXA No injuries from most recent fall. 5. Acquired hypothyroidism - ICD9: 244.9, ICD10: E03.9 - Instructed patient on importance of taking on an empty stomach either first thing in the morning or at bedtime. - check TSH today 6. Essential hypertension - ICD9: 401.9, ICD10: I10 - Controlled, stable - Continue current medications - Recommend home blood pressure monitoring, to bring results to next visit - Encouraged sodium restriction, DASH or Mediterranean diet - Recommend regular aerobic exercise 7. Chronic hypoxemic respiratory failure (HCC) - ICD9: 518.83, 799.02, ICD10: J96.11 Stable, follows with pulmonary. Portions of this note have been entered by ancillary staff. I have reviewed and when necessary edited, so that they are an adequate record of my encounter with this patient Please note that parts of this document were created using voice recognition software and therefore may contain grammatical errors. Patient verbalizes understanding of instructions from today's visit and in agreement with treatmentplan. Questions answered. Agrees to call the office if questions, concerns of issues with acute symptoms not improving or if they worsen. See diagnoses and orders for additional plan(s). Allergies and medications were reviewed, list was updated, and refills given if needed. Past medical, surgical, social, and family history reviewed and updated as appropriate. Encouraged proper diet & exercise as well as compliance with taking medications. Age- appropriate health preventative measures were discussed. Return in about 24 days (around 07/22/2023) for recheck on DM. Cole Bower APRN-KENDAL documented [facility]23 Miscellaneous Notes* Telephone Encounter - Sarina Adams MD - 06/24/2023 2:01 PM EDT The following approved medication requests have been transmitted electronically. Requested Prescriptions Signed Prescriptions Disp Refills HYDROcodone-acetaminophen (NORCO) 5-325 mg per tablet 30 tablet 0 Sig: Take 1 tablet by mouth once daily as needed for pain for up to 30 days. Authorizing Provider: SARINA ADAMS MD * Telephone Encounter - Carolina Cordova MA - 06/22/2023 11:04 AM EDT Patient has been identified by name and date of : Yes Requested Prescriptions Pending Prescriptions Disp Refills HYDROcodone-acetaminophen (NORCO) 5-325 mg per tablet 30 tablet 0 Sig: Take 1 tablet by mouth once daily as needed for pain for up to 30 days. RX INSTRUCTIONS: Patient aware RX will be sent to pharmacy. No need to notify patient. Patient last office visit: 05/24/23 Patient next office visit: 06/28/23 Carolina Cordova MA documented in this encounterK[facility]-21-2023 Miscellaneous Notes* Telephone Encounter - Sarina Adams MD - 05/24/2023 7:01 PM EDT Okayed * Telephone Encounter - Cheryl Davila OCCA - 05/24/2023 12:54 PM EDT Patient has been identified by name and date of : Yes Patient phones for refill(s): Requested Prescriptions Pending Prescriptions Disp Refills blood sugar diagnostic (BLOOD GLUCOSE TEST) test strip 200 Strip 11 Sig: Test blood sugar(s) 4 times daily. Dx: Type 2 DM - Controlled E11.9 Insulin: Yes Date of last office visit in primary care: LIDIA 05/17/23 NOV 06/28/23 Last 2 Encounter Wt Readings: Date: Wt: 05/19/2023 106 kg (233 lb 9.6 oz) 05/17/2023 107 kg (236 lb) Please advise. Thank you. ANGEL Marc documented in this encounterK[facility]08-21-2023 Miscellaneous Notes* Result Encounter Note - Denise Alvarado APRN.CNS - 05/24/2023 3:00 PM EDT No fracture or dislocation of her arm or hand documented in this encounterK[facility]08-21-2023 Progress note* Result Encounter Note - Denise Alvarado APRN.CNS - 05/24/2023 3:00 PM EDT No fracture or dislocation of her arm or hand [facility]-21-[facility] Instructions* Patient Instructions* Denise Alvarado APRN.CNS - 05/24/2023 2:45 PM EDT For wrist and arm: Complete XR today For leg swelling: Take furosemide 40 mg daily in the morning. Take potassium while taking furosemide Let us know if not improving. documented in this encounterK[facility]08-21-2023 History of Present illness Narrative* Denise Alvarado APRN.CNS - 05/24/2023 2:26 PM EDT SUBJECTIVE: MAMMOGRAM due on 03/22/2015 DIABETIC FOOT EXAM due on 04/25/2022 HPI Samantha Romero is a 57 year old female. 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 (Hcc) Type 2 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 Macular Edema, Without Long-Term Current Use of Insulin (Hcc) Status Post Cataract Extraction and Insertion of Intraocular Lens of Right Eye Pneumonia Due to Covid-19 Virus Post-Covid Chronic Dyspnea Chronic Hypoxemic Respiratory Failure (Hcc) Myasthenia Gravis (Hcc) Type 2 Diabetes Mellitus With Diabetic Neuropathy, With Long-Term Current Use of Insulin (Hcc) Bilateral Leg Edema Dysuria Gastroesophageal Reflux Disease Chronic Midline Low Back Pain Esophageal Dysphagia Gastroesophageal Reflux Disease With Esophagitis Without Hemorrhage Obesity, Class III, BMI >= 40 Pericardial Effusion Obesity, Class II, Bmi 35-39.9 HPI excerpted from previous visit: She was seen at [facility] emergency department April 09, 2023. She presented with a complaint of weakness. She reported 3 days of fatigue cough and shortness of breath prior to arrival. She reported using oxygen since she had COVID a couple of years ago, normally wearing 2 L continuously. She increased oxygen to 3 L on the day of arrival due to feeling short of breath. She reported occasional chest tightness. No fever chills or GI symptoms reported. No sick contacts. Former smoker. Exam showed increased respiratory rate of 24/min, 2+ bilateral ankle edema pulse ox 92% on 3 L O2. Noted to be tachypneic. Noted chronic ankle edema unchanged from baseline. Labs completed. Showed mild anemia. Glucose elevated at 446. BUN 55 and creatinine 1.77 chest x- ray showed poor inspiration with some bibasilar atelectasis and cardiomegaly. She was treated with DuoNebin the emergency department. Noted that BUN and creatinine were consistent with prior measures. Troponin negative. BNP normal. She was discharged with no change in treatment. She was advised to follow-up with primary care in 5 to 7 days. Shortness of breath: about the same as when seen in ER O2: 3-4L [place] Pulse ox at home: no Home readings blood sugar:300 Oral intake/fluids: 20-40 oz/day States did not et today trying to bring glucose levels down. Taking empagliflozin:states yes Novolog flex pen 20 units at meals + SSI-states using as ordered Tresiba:-no recent refills on outside medication review. [facility]: has not had for months, states pharmacist told her not avialble At last visit diabetes was noted to be uncontrolled. Trulicity started. She reports taking the first dose 2 days ago. Hypothyroid inadequately treated. Dose of levothyroxine increased at last visit. Today reports that following her last visit with me she started develop increased leg swelling, weight gain, increased shortness of breath. Without report of chest pain palpitations presyncope syncope orthopnea PND. States consistently taking medications. Seen in January 2023 for pericardial effusion by [facility] cardiology. 3 months follow-up echo recommended. Not yet completed. Today reports taking medications as ordered. Reports significant urine output when taking Lasix. Weight is stable however. Leg swelling is about the same. Has not checked home blood sugars of late. She reports falling this morning, not sure how when she awoke. Reports pain in her hand and left elbow and forearm. She reports chronic back pain for which she takes Reynolds and requesting refill. Hemoglobin A1C (%) Date Value 03/26/2023 12.4 12/18/2022 11.7 04/10/2021 8.3 10/25/2020 10.3 Hemoglobin A1C (POCT) (%) Date Value 10/21/2022 11.0 ) Creatinine Date Value Ref Range Status 04/29/2023 1.08 (H) 0.58 - 0.96 mg/dL Final 03/26/2023 0.95 0.58 - 0.96 mg/dL Final 01/15/2023 1.34 (H) 0.58 - 0.96 mg/dL Final 12/18/2022 1.16 (H) 0.58 - 0.96 mg/dL Final Last 14 Encounter BP Readings: Date: BP: 05/17/2023 118/60 04/29/2023 120/68 03/26/2023 112/60 01/25/2023 114/64 01/15/2023 100/54 12/18/2022 126/74 10/26/2022 104/58 09/29/2022 104/60 08/28/2022 93/61 08/24/2022 112/60 07/21/2022 104/62 07/03/2022 94/61 06/26/2022 118/60 04/01/2022 102/68 Review of Systems Constitutional: Positive for unexpected weight change. Respiratory: Positive for shortness of breath. Cardiovascular: Positive for leg swelling. Objective BP 115/75 Pulse 77 Resp 16 Wt 105.7 kg (233 lb) LMP 04/27/2016 SpO2 95% BMI 39.99 kg/m Physical Exam Vitals and nursing note reviewed. Constitutional: Appearance: Normal appearance. HENT: Head: Normocephalic and atraumatic. Eyes: Conjunctiva/sclera: Conjunctivae normal. Neck: Thyroid: No thyromegaly. Vascular: No JVD. Cardiovascular: Rate and Rhythm: Normal rate and regular rhythm. Heart sounds: No murmur heard. No friction rub. No gallop. Pulmonary: Effort: Pulmonary effort is normal. Breath sounds: Normal breath sounds. Musculoskeletal: Right lower leg: Edema (2-3+ edema to knee) present. Left lower leg: Edema (2-3+ edema to knee) present. Skin: General: Skin is warm and dry. Neurological: Mental Status: She is alert and oriented to person, place, and time. Mental status is at baseline. ALLERGIES Allergen Reactions Metformin Diarrhea Diarrhea every time takes, even with ER dose Oxycodone GI Upset Percocet [Oxycodone* GI Upset and off balance Medications OXYGEN, HOME THERAPY,^Inhale as instructed as directed. Uses at 2 l/m via nasal cannula during the day and 4 l/m at night^Disp: ^Rfl: omeprazole (PRILOSEC) 40 mg capsule^Take 1 capsule by mouth once daily.^Disp: 30 capsule^Rfl: 5 furosemide (LASIX) 20 mg tablet^Take 1 tablet by mouth once daily.^Disp: 7 tablet^Rfl: 0 levothyroxine (SYNTHROID) 175 mcg tablet^Take 1 tablet by mouth daily before breakfast.^Disp: 90 tablet^Rfl: 3 hydroCHLOROthiazide 50 mg tablet^Take 1 tablet by mouth once daily.^Disp: 30 tablet^Rfl: 2 hydrocortisone 2.5 % cream^Apply 1 application to affected area twice daily. Location: hands and chest^Disp: 20 g^Rfl: 0 (Patient taking differently: Apply 1 application to affected area twice daily.Location: hands and chest Uses as needed) PEG 400-propylene glycol (SYSTANE ULTRA) 0.4-0.3 % ophthalmic solution^Use 1 Drop in both eyes fourtimes daily.^Disp: 15 mL^Rfl: 4 peg 400-propylene glycol (SYSTANE GEL) 0.4-0.3 % drpg^Use 1 Drop in both eyes daily at bedtime.^Disp: 10 mL^Rfl: 2 dulaglutide (TRULICITY) 0.75 mg/0.5 mL pen injector^Inject 0.75 mg subcutaneously one time a week.^Disp: 4 Each^Rfl: 2 blood sugar diagnostic (FREESTYLE LITE STRIPS) test strip^Test blood sugar(s) 4 times daily. Dx: Other DM Code E11.40 Insulin: Yes^Disp: 50 Strip^Rfl: 3 meloxicam (MOBIC) 15 mg tablet^Take 1 tablet by mouth once daily as needed for pain. With food.^Disp: 30 tablet^Rfl: 1 insulin aspart U-100 (NOVOLOG FLEXPEN U-100 INSULIN) 100 unit/mL (3 mL)^inject 20 units with meals three times a day , PLUS SLIDING SCALE #2 BASED ON PRE- MEAL BLOOD SUGAR (AROUND 80 UNITS PER DAY)^Disp: 15 mL^Rfl: 3 Blood-Glucose Meter monitoring kit^Check sugars daily and as needed (Freestyle Lite is what she hashad)^Disp: 1 Each^Rfl: 0 HYDROcodone-acetaminophen (NORCO) 5-325 mg per tablet^Take 1 tablet by mouth once daily as needed for pain for up to 30 days. Do not start before April 25, 2023.^Disp: 30 tablet^Rfl: 0 gabapentin (NEURONTIN) 600 mg tablet^Take 1 tablet by mouth twice daily for 180 days. Do not start before April 25, 2023.^Disp: 60 tablet^Rfl: 5 rosuvastatin (CRESTOR) 10 mg tablet^Take 1 tablet by mouth daily at bedtime.^Disp: 30 tablet^Rfl: 11 flash glucose sensor (FREESTYLE TAYLOR 14 DAY SENSOR) kit^Use to check blood sugar 4 times daily. Please give 2 sensors per refill^Disp: 2 Kit^Rfl: 5 lisinopril 2.5 mg tablet^Take 1 tablet by mouth once daily.^Disp: 90 tablet^Rfl: 3 hydrOXYzine HCl (ATARAX) 25 mg tablet^Take 1-2 tablets by mouth at bedtime as needed.^Disp: 30 tablet^Rfl: 3 insulin degludec (TRESIBA FLEXTOUCH U-100) 100 unit/mL (3 mL) injection pen^Inject 62 Units subcutaneously daily at bedtime.^Disp: 63 mL^Rfl: 3 blood sugar diagnostic (BLOOD GLUCOSE TEST) test strip^Test blood sugar(s) 4 times daily. Dx: Type 2 DM - Controlled E11.9 Insulin: Yes^Disp: 200 Strip^Rfl: 11 Lancets lancets^Test blood sugar(s) 4 times daily. Dx: E11.9 Insulin: Yes^Disp: 200 Each^Rfl: 11 empagliflozin (JARDIANCE) 25 mg tablet^Take 1 tablet by mouth daily with breakfast.^Disp: 90 tablet^Rfl: 3 Fenofibrate (LOFIBRA) 160 mg tablet^Take 1 tablet by mouth once daily.^Disp: 30 tablet^Rfl: 11 clotrimazole-betamethasone (LOTRISONE) cream^Apply 1 application to affected area twice daily. X 2 weeks.^Disp: 45 g^Rfl: 0 (Patient taking differently: Apply 1 application to affected area twice daily. X 2 weeks. Uses as needed) fluticasone (FLONASE) 50 mcg/actuation nasal spray^Use 1-2 Sprays in each nostril once daily as needed.^Disp: 1 Each^Rfl: 11 Insulin [place], Disposable, (BD ULTRAFINE III MINI PEN) 31 gauge x 12/17^inject 1 subcutaneously four times a day^Disp: 200 Each^Rfl: 3 dicyclomine (BENTYL) 10 mg capsule^Take 1 capsule by mouth before meals and at bedtime. for abdominal pain^Disp: 120 capsule^Rfl: 5 pyridostigmine (MESTINON) 60 mg tablet^Take 1 tablet by mouth three times daily.^Disp: 90 tablet^Rfl: 11 (Patient taking differently: Take 60 mg by mouth three times daily. Patient states she does not take it when she leaves the house due to side effects.) Miscellaneous Medical Supply (BLOOD PRESSURE CUFF)^1 Each as needed. Blood pressure Monitor and Cuff, use as directed. Dx: I10 Hypertension^Disp: 1 Each^Rfl: 0 flash glucose scanning reader (HeyLets TAYLOR 14 DAY READER)^Use to check blood sugar 4 times daily^Disp: 1 Each^Rfl: 0 Vitamin E, dl, acetate, (VITAMIN E) 400 unit capsule^Take 400 Units by mouth once daily.^Disp: ^Rfl: (Patient not taking: Reported on 05/19/2023) omega-3 fatty acids (FISH OIL CONCENTRATE ORAL)^Take by mouth.^Disp: ^Rfl: (Patient not taking: Reported on 05/19/2023) estradiol (ESTRACE) 0.01 % (0.1 mg/gram) vaginal cream^Use 3 g vaginally two times a week.^Disp: 42.5 g^Rfl: 6 Humphrey-3 Fatty Acids-Vitamin E 1,000 mg cap^Take 1 capsule by mouth twice daily.^Disp: ^Rfl: (Patient not taking: Reported on 05/19/2023) PAST MEDICAL HISTORY Diagnosis Date Chronic hypoxemic respiratory failure (HCC) COVID-19 07/06/2021 HTN (hypertension) Hyperlipidemia 04/05/2014 Hypothyroid 04/19/2014 Kidney stone on left side 04/12/2014 Myasthenia gravis (HCC) OA (osteoarthritis) of hip, bilateral 04/04/2014 Type II or unspecified type diabetes mellitus without mention of complication, uncontrolled 04/05/2014 Social History Tobacco Use Smoking status: Former Packs/day: 1.00 Years: 30.00 Additional pack years: 0.00 Total pack years: 30.00 Types: Cigarettes Quit date: 11/04/2013 Years since quittin.5 Smokeless tobacco: Never Vaping Use Vaping Use: Never used Substance Use Topics Alcohol use: Not Currently Comment: wine cool every once in a while Drug use: No Component Latest Ref Rng & Units 12/18/2022 01/15/2023 03/26/2023 WBC 3.70 - 11.00 k/uL 5.77 5.58 5.05 RBC 3.90 - 5.20 m/uL 3.75 (L) 3.93 4.01 Hemoglobin 11.5 - 15.5 g/dL 10.3 (L) 10.4 (L) 10.9 (L) Hematocrit 36.0 - 46.0 % 33.3 (L) 34.5 (L) 35.2 (L) MCV 80.0 - 100.0 fL 88.8 87.8 87.8 MCH 26.0 - 34.0 pg 27.5 26.5 27.2 MCHC 30.5 - 36.0 g/dL 30.9 30.1 (L) 31.0 RDW-CV 11.5 - 15.0 % 13.8 13.8 15.0 Platelet Count 150 - 400 k/uL 160 163 135 (L) MPV 9.0 - 12.7 fL 11.6 11.7 11.4 Neut% % 64.3 Abs Neut (ANC) 1.45 - 7.50 k/uL 3.58 Lymph% % 21.1 Abs Lymph 1.00 - 4.00 k/uL 1.18 [place]% % 8.2 Abs [place] <0.87 k/uL 0.46 Eosin% % 5.2 Abs Eosin <0.46 k/uL 0.29 Baso% % 0.7 Abs Baso <0.11 k/uL 0.04 Immature Gran % % 0.5 IMMATURE GRANS (ABS) <0.10 k/uL 0.03 NRBC /100 WBC 0.0 Absolute nRBC <0.01 k/uL <0.01 <0.01 <0.01 DTYPE Auto Protein, Total 6.3 - 8.0 g/dL 6.8 7.0 7.1 Albumin 3.9 - 4.9 g/dL 3.9 4.1 4.2 Calcium 8.5 - 10.2 mg/dL 9.4 9.6 9.2 Bilirubin, Total 0.2 - 1.3 mg/dL 0.2 0.2 0.2 Alkaline Phosphatase 34 - 123 U/L 67 65 66 AST 13 - 35 U/L 22 27 25 ALT 7 - 38 U/L 22 26 25 Glucose 74 - 99 mg/dL 444 (H) 322 (H) 316 (H) BUN 7 - 21 mg/dL 34 (H) 36 (H) 32 (H) Creatinine 0.58 - 0.96 mg/dL 1.16 (H) 1.34 (H) 0.95 Sodium 136 - 144 mmol/L 137 140 139 Potassium 3.7 - 5.1 mmol/L 4.1 4.6 4.3 Chloride 97 - 105 mmol/L 98 99 99 CO2 22 - 30 mmol/L 26 29 24 Anion Gap 9 - 18 mmol/L 13 12 16 eGFR >=60 mL/min/1.73m 55 (L) 46 (L) 70 Phencyclidine Negative Negative Benzodiazepines Urine Negative Negative Cocaine Urine Negative Negative Amphetamines Negative Negative Cannabinoids, Urine Negative Negative Opiates Negative Negative Barbiturates Negative Negative Ethanol, Urine <11 mg/dL <11 Oxycodone, Urine Negative Negative Total Cholesterol, Nonfasting <200 mg/dL 176 223 (H) Triglycerides, Nonfasting <150 mg/dL 358 (H) 521 (H) HDL Cholesterol, Nonfasting >39 mg/dL 43 39 (L) LDL Cholesterol, Nonfasting 61 Non HDL Cholesterol, Nonfasting <130 mg/dL 133 (H) 184 (H) VLDL Cholesterol, Nonfasting 72 (H) Total Chol/HDL Ratio, Nonfasting <5.10 mg/dL 4.09 5.72 (H) LDL/HDL Ratio, Nonfasting 1.42 Creatinine, Ur Random (UCRR) 20.0 - 300.0 mg/dL 32.5 36.3 Albumin, Urine Random mg/L 101.6 329.1 Albumin/Creat Ratio <30 mg/g 313 (H) 907 (H) Hemoglobin A1C 4.3 - 5.6 % 11.7 (H) 12.4 (H) Estimated Average Glucose mg/dL 289 309 NT Pro BNP <125 pg/mL 54 TSH 0.270 - 4.200 mIU/L 15.300 (H) 18.400 (H) 9.630 (H) Free T4 0.9 - 1.7 ng/dL 1.1 1.3 WSR 0 - 20 mm/hr 21 (H) CRP <0.9 mg/dL <0.3 Vitamin D 25 Hydroxy 31.0 - 80.0 ng/mL 10.9 (L) Free T3 2.3 - 4.1 pg/mL 1.9 (L) Creatinine Date Value Ref Range Status 04/29/2023 1.08 (H) 0.58 - 0.96 mg/dL Final 03/26/2023 0.95 0.58 - 0.96 mg/dL Final 01/15/2023 1.34 (H) 0.58 - 0.96 mg/dL Final 12/18/2022 1.16 (H) 0.58 - 0.96 mg/dL Final ASSESSMENT/PLAN: 1. Pericardial effusion - ICD9: 423.9, ICD10: I31.39 (primary diagnosis) 2. Weight gain - ICD9: 783.1, ICD10: R63.5 5. Leg swelling - ICD9: 729.81, ICD10: M79.89 Follow-up echocardiogram completed yesterday showed moderate circumferential pericardial effusion. Noted prior small to moderate circumferential pericardial effusion without tamponade physiology. BNP was within normal limits. Limited response to furosemide. - ECHO - PERFLUTREN LIPID MICROSPHERES 1.1 MG/ML INJECTION IN NS 10 ML - SODIUM CHLORIDE 0.9 % (FLUSH) INJECTION SYRINGE - NT PRO BNP - FUROSEMIDE 20 MG TABLET QD x 7 days- will repeat this ASSESSMENT/PLAN: 1. Pericardial effusion - ICD9: 423.9, ICD10: I31.39 (primary diagnosis) 7. Weight gain - ICD9: 783.1, ICD10: R63.5 8. Leg swelling - ICD9: 729.81, ICD10: M79.89 - FUROSEMIDE 40 MG TABLET 2. Fall, initial encounter - ICD9: E888.9, ICD10: W19.XXXA 3. Right arm pain - ICD9: 729.5, ICD10: M79.601 4. Right hand pain - ICD9: 729.5, ICD10: M79.641 Continue with current pain medication unchanged - XR HAND GENERAL 3V PA/LAT/OBL RIGHT - XR FOREARM GENERAL 2V AP/LAT RIGHT XR interpretation not yet read. For now recommend RICE, routine pain medications. 5. Acquired hypothyroidism - ICD9: 244.9, ICD10: E03.9 Continue with current treatment unchanged for now - TSH BLD 6. Vitamin D deficiency - ICD9: 268.9, ICD10: E55.9 - VITAMIN D 25 HYDROXY Recheck one week-declines for now due to expense Keep cardiology visit scheduled for June. Denise Alvarado APRN.QUALITY ASSURANCE PRACTICE MANAGER Medical Decision Making: Problems: Low: Acute, uncomplicated illness or injury Moderate: 1+ chronic illnesses with change Data: Unique test(s) ordered: 2 Risk: Moderate: Drug management Medical Decision Making Level: 4 - Moderate documented in this encounterK[facility]-16-2023 History of Present illness Narrative* Siddhartha Guardado RT(R) - 05/19/2023 2:50 PM EDT Radiology Service Progress Note PATIENT NAME: Samantha Romero DATE OF SERVICE: May 19, 2023 TIME: 2:59 PM PATIENT IDENTITY VERIFICATION COMPLETED USING TWO (2) IDENTIFIERS: Name and Date of confirmedby patient verbally. FALL SCREENING: Has the patient had 2 falls in the last year or 1 fall with injury or currently using an Ambulatory Assistive Device (Walker, Cane, Wheelchair, Crutches, etc.)? No PATIENT GENDER DATA: Female. status: : No status: NO. PATIENT RELEVANT IMPLANT DATA REVIEWED: Not Applicable RADIOLOGY DEPARTMENT: General X-ray: Exam(s) Completed: Chest X-Ray PERIPHERAL IV DATA: Not applicable SIGNED BY: RT Shadi(R) May 19, 2023 2:59 PM documented in this encounterKettering [facility]08-14-2023 Instructions* Patient Instructions* Denise Alvarado APRN.CNS - 05/17/2023 12:25 PM EDT Continue with thyroid medicine unchanged Continue with Trulicity unchanged Start taking furosemide daily in the morning This should help with leg swelling and weight gain documented in this encounterKet[facility]08-14-2023 History of Present illness Narrative* Denise Alvarado APRN.CNS - 05/17/2023 11:40 AM EDT SUBJECTIVE: MAMMOGRAM due on 03/22/2015 DIABETIC FOOT EXAM due on 04/25/2022 HPI Samantha Romero is a 57 year old female. 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 (Hcc) Type 2 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 Macular Edema, Without Long-Term Current Use of Insulin (Hcc) Status Post Cataract Extraction and Insertion of Intraocular Lens of Right Eye Pneumonia Due to Covid-19 Virus Post-Covid Chronic Dyspnea Chronic Hypoxemic Respiratory Failure (Hcc) Myasthenia Gravis (Hcc) Type 2 Diabetes Mellitus With Diabetic Neuropathy, With Long-Term Current Use of Insulin (Hcc) Bilateral Leg Edema Dysuria Gastroesophageal Reflux Disease Chronic Midline Low Back Pain Esophageal Dysphagia Gastroesophageal Reflux Disease With Esophagitis Without Hemorrhage Obesity, Class III, BMI >= 40 Pericardial Effusion Obesity, Class II, Bmi 35-39.9 HPI excerpted from previous visit: She was seen at [facility] emergency department April 09, 2023. She presented with a complaint of weakness. She reported 3 days of fatigue cough and shortness of breath prior to arrival. She reported using oxygen since she had COVID a couple of years ago, normally wearing 2 L continuously. She increased oxygen to 3 L on the day of arrival due to feeling short of breath. She reported occasional chest tightness. No fever chills or GI symptoms reported. No sick contacts. Former smoker. Exam showed increased respiratory rate of 24/min, 2+ bilateral ankle edema pulse ox 92% on 3 L O2. Noted to be tachypneic. Noted chronic ankle edema unchanged from baseline. Labs completed. Showed mild anemia. Glucose elevated at 446. BUN 55 and creatinine 1.77 chest x- ray showed poor inspiration with some bibasilar atelectasis and cardiomegaly. She was treated with DuoNebin the emergency department. Noted that BUN and creatinine were consistent with prior measures. Troponin negative. BNP normal. She was discharged with no change in treatment. She was advised to follow-up with primary care in 5 to 7 days. Shortness of breath: about the same as when seen in ER O2: 3-4L NC Pulse ox at home: no Home readings blood sugar:300 Oral intake/fluids: 20-40 oz/day States did not et today trying to bring glucose levels down. Taking empagliflozin:states yes Novolog flex pen 20 units at meals + SSI-states using as ordered Tresiba:-no recent refills on outside medication review. [facility]: has not had for months, states pharmacist told her not avialble At last visit diabetes was noted to be uncontrolled. Trulicity started. She reports taking the first dose 2 days ago. Hypothyroid inadequately treated. Dose of levothyroxine increased at last visit. Today reports that following her last visit with me she started develop increased leg swelling, weight gain, increased shortness of breath. Without report of chest pain palpitations presyncope syncope orthopnea PND. States consistently taking medications. Seen in January 2023 for pericardial effusion by [facility] cardiology. 3 months follow-up echo recommended. Not yet completed. Hemoglobin A1C (%) Date Value 03/26/2023 12.4 12/18/2022 11.7 04/10/2021 8.3 10/25/2020 10.3 Hemoglobin A1C (POCT) (%) Date Value 10/21/2022 11.0 ) Creatinine Date Value Ref Range Status 04/29/2023 1.08 (H) 0.58 - 0.96 mg/dL Final 03/26/2023 0.95 0.58 - 0.96 mg/dL Final 01/15/2023 1.34 (H) 0.58 - 0.96 mg/dL Final 12/18/2022 1.16 (H) 0.58 - 0.96 mg/dL Final Last 14 Encounter BP Readings: Date: BP: 05/17/2023 118/60 04/29/2023 120/68 03/26/2023 112/60 01/25/2023 114/64 01/15/2023 100/54 12/18/2022 126/74 10/26/2022 104/58 09/29/2022 104/60 08/28/2022 93/61 08/24/2022 112/60 07/21/2022 104/62 07/03/2022 94/61 06/26/2022 118/60 04/01/2022 102/68 Review of Systems Constitutional: Positive for unexpected weight change. Respiratory: Positive for shortness of breath. Cardiovascular: Positive for leg swelling. Objective LMP 04/27/2016 Physical Exam Vitals and nursing note reviewed. Constitutional: Appearance: Normal appearance. HENT: Head: Normocephalic and atraumatic. Eyes: Conjunctiva/sclera: Conjunctivae normal. Neck: Vascular: No JVD. Cardiovascular: Rate and Rhythm: Normal rate and regular rhythm. Heart sounds: No murmur heard. No friction rub. No gallop. Pulmonary: Effort: Pulmonary effort is normal. Breath sounds: Normal breath sounds. Musculoskeletal: Right lower leg: Edema (2-3+ edema to knee) present. Left lower leg: Edema (2-3+ edema to knee) present. Skin: General: Skin is warm and dry. Neurological: Mental Status: She is alert and oriented to person, place, and time. Mental status is at baseline. ALLERGIES Allergen Reactions Metformin Diarrhea Diarrhea every time takes, even with ER dose Oxycodone GI Upset Percocet [Oxycodone* GI Upset and off balance Medications levothyroxine (SYNTHROID) 175 mcg tablet^Take 1 tablet by mouth daily before breakfast.^Disp: 90 tablet^Rfl: 3 hydroCHLOROthiazide 50 mg tablet^Take 1 tablet by mouth once daily.^Disp: 30 tablet^Rfl: 2 hydrocortisone 2.5 % cream^Apply 1 application to affected area twice daily. Location: hands and chest^Disp: 20 g^Rfl: 0 PEG 400-propylene glycol (SYSTANE ULTRA) 0.4-0.3 % ophthalmic solution^Use 1 Drop in both eyes fourtimes daily.^Disp: 15 mL^Rfl: 4 peg 400-propylene glycol (SYSTANE GEL) 0.4-0.3 % drpg^Use 1 Drop in both eyes daily at bedtime.^Disp: 10 mL^Rfl: 2 dulaglutide (TRULICITY) 0.75 mg/0.5 mL pen injector^Inject 0.75 mg subcutaneously one time a week.^Disp: 4 Each^Rfl: 2 blood sugar diagnostic (FREESTYLE LITE STRIPS) test strip^Test blood sugar(s) 4 times daily. Dx: Other DM Code E11.40 Insulin: Yes^Disp: 50 Strip^Rfl: 3 meloxicam (MOBIC) 15 mg tablet^Take 1 tablet by mouth once daily as needed for pain. With food.^Disp: 30 tablet^Rfl: 1 insulin aspart U-100 (NOVOLOG FLEXPEN U-100 INSULIN) 100 unit/mL (3 mL)^inject 20 units with meals three times a day , PLUS SLIDING SCALE #2 BASED ON PRE- MEAL BLOOD SUGAR (AROUND 80 UNITS PER DAY)^Disp: 15 mL^Rfl: 3 Blood-Glucose Meter monitoring kit^Check sugars daily and as needed (Freestyle Lite is what she hashad)^Disp: 1 Each^Rfl: 0 HYDROcodone-acetaminophen (NORCO) 5-325 mg per tablet^Take 1 tablet by mouth once daily as needed for pain for up to 30 days. Do not start before April 25, 2023.^Disp: 30 tablet^Rfl: 0 gabapentin (NEURONTIN) 600 mg tablet^Take 1 tablet by mouth twice daily for 180 days. Do not start before April 25, 2023.^Disp: 60 tablet^Rfl: 5 rosuvastatin (CRESTOR) 10 mg tablet^Take 1 tablet by mouth daily at bedtime.^Disp: 30 tablet^Rfl: 11 flash glucose sensor (FREESTYLE TAYLOR 14 DAY SENSOR) kit^Use to check blood sugar 4 times daily. Please give 2 sensors per refill^Disp: 2 Kit^Rfl: 5 lisinopril 2.5 mg tablet^Take 1 tablet by mouth once daily.^Disp: 90 tablet^Rfl: 3 hydrOXYzine HCl (ATARAX) 25 mg tablet^Take 1-2 tablets by mouth at bedtime as needed.^Disp: 30 tablet^Rfl: 3 insulin degludec (TRESIBA FLEXTOUCH U-100) 100 unit/mL (3 mL) injection pen^Inject 62 Units subcutaneously daily at bedtime.^Disp: 63 mL^Rfl: 3 blood sugar diagnostic (BLOOD GLUCOSE TEST) test strip^Test blood sugar(s) 4 times daily. Dx: Type 2 DM - Controlled E11.9 Insulin: Yes^Disp: 200 Strip^Rfl: 11 Lancets lancets^Test blood sugar(s) 4 times daily. Dx: E11.9 Insulin: Yes^Disp: 200 Each^Rfl: 11 empagliflozin (JARDIANCE) 25 mg tablet^Take 1 tablet by mouth daily with breakfast.^Disp: 90 tablet^Rfl: 3 Fenofibrate (LOFIBRA) 160 mg tablet^Take 1 tablet by mouth once daily.^Disp: 30 tablet^Rfl: 11 clotrimazole-betamethasone (LOTRISONE) cream^Apply 1 application to affected area twice daily. X 2 weeks.^Disp: 45 g^Rfl: 0 fluticasone (FLONASE) 50 mcg/actuation nasal spray^Use 1-2 Sprays in each nostril once daily as needed.^Disp: 1 Each^Rfl: 11 Insulin [place], Disposable, (BD ULTRAFINE III MINI PEN) 31 gauge x 12/17^inject 1 subcutaneously four times a day^Disp: 200 Each^Rfl: 3 dicyclomine (BENTYL) 10 mg capsule^Take 1 capsule by mouth before meals and at bedtime. for abdominal pain^Disp: 120 capsule^Rfl: 5 pyridostigmine (MESTINON) 60 mg tablet^Take 1 tablet by mouth three times daily.^Disp: 90 tablet^Rfl: 11 (Patient taking differently: Take 60 mg by mouth three times daily. Patient states she does not take it when she leaves the house due to side effects.) Vitamin E, dl, acetate, (VITAMIN E) 400 unit capsule^Take 400 Units by mouth once daily.^Disp: ^Rfl: omega-3 fatty acids (FISH OIL CONCENTRATE ORAL)^Take by mouth.^Disp: ^Rfl: Miscellaneous Medical Supply (BLOOD PRESSURE CUFF)^1 Each as needed. Blood pressure Monitor and Cuff, use as directed. Dx: I10 Hypertension^Disp: 1 Each^Rfl: 0 flash glucose scanning reader (HeyLets TAYLOR 14 DAY READER)^Use to check blood sugar 4 times daily^Disp: 1 Each^Rfl: 0 estradiol (ESTRACE) 0.01 % (0.1 mg/gram) vaginal cream^Use 3 g vaginally two times a week.^Disp: 42.5 g^Rfl: 6 Humphrey-3 Fatty Acids-Vitamin E 1,000 mg cap^Take 1 capsule by mouth twice daily.^Disp: ^Rfl: PAST MEDICAL HISTORY Diagnosis Date Chronic hypoxemic respiratory failure (HCC) COVID-19 07/06/2021 HTN (hypertension) Hyperlipidemia 04/05/2014 Hypothyroid 04/19/2014 Kidney stone on left side 04/12/2014 Myasthenia gravis (HCC) OA (osteoarthritis) of hip, bilateral 04/04/2014 Type II or unspecified type diabetes mellitus without mention of complication, uncontrolled 04/05/2014 Social History Tobacco Use Smoking status: Former Packs/day: 1.00 Years: 30.00 Additional pack years: 0.00 Total pack years: 30.00 Types: Cigarettes Quit date: 11/04/2013 Years since quittin.5 Smokeless tobacco: Never Vaping Use Vaping Use: Never used Substance Use Topics Alcohol use: Not Currently Comment: wine cool every once in a while Drug use: No Component Latest Ref Rng & Units 12/18/2022 01/15/2023 03/26/2023 WBC 3.70 - 11.00 k/uL 5.77 5.58 5.05 RBC 3.90 - 5.20 m/uL 3.75 (L) 3.93 4.01 Hemoglobin 11.5 - 15.5 g/dL 10.3 (L) 10.4 (L) 10.9 (L) Hematocrit 36.0 - 46.0 % 33.3 (L) 34.5 (L) 35.2 (L) MCV 80.0 - 100.0 fL 88.8 87.8 87.8 MCH 26.0 - 34.0 pg 27.5 26.5 27.2 MCHC 30.5 - 36.0 g/dL 30.9 30.1 (L) 31.0 RDW-CV 11.5 - 15.0 % 13.8 13.8 15.0 Platelet Count 150 - 400 k/uL 160 163 135 (L) MPV 9.0 - 12.7 fL 11.6 11.7 11.4 Neut% % 64.3 Abs Neut (ANC) 1.45 - 7.50 k/uL 3.58 Lymph% % 21.1 Abs Lymph 1.00 - 4.00 k/uL 1.18 [place]% % 8.2 Abs [place] <0.87 k/uL 0.46 Eosin% % 5.2 Abs Eosin <0.46 k/uL 0.29 Baso% % 0.7 Abs Baso <0.11 k/uL 0.04 Immature Gran % % 0.5 IMMATURE GRANS (ABS) <0.10 k/uL 0.03 NRBC /100 WBC 0.0 Absolute nRBC <0.01 k/uL <0.01 <0.01 <0.01 DTYPE Auto Protein, Total 6.3 - 8.0 g/dL 6.8 7.0 7.1 Albumin 3.9 - 4.9 g/dL 3.9 4.1 4.2 Calcium 8.5 - 10.2 mg/dL 9.4 9.6 9.2 Bilirubin, Total 0.2 - 1.3 mg/dL 0.2 0.2 0.2 Alkaline Phosphatase 34 - 123 U/L 67 65 66 AST 13 - 35 U/L 22 27 25 ALT 7 - 38 U/L 22 26 25 Glucose 74 - 99 mg/dL 444 (H) 322 (H) 316 (H) BUN 7 - 21 mg/dL 34 (H) 36 (H) 32 (H) Creatinine 0.58 - 0.96 mg/dL 1.16 (H) 1.34 (H) 0.95 Sodium 136 - 144 mmol/L 137 140 139 Potassium 3.7 - 5.1 mmol/L 4.1 4.6 4.3 Chloride 97 - 105 mmol/L 98 99 99 CO2 22 - 30 mmol/L 26 29 24 Anion Gap 9 - 18 mmol/L 13 12 16 eGFR >=60 mL/min/1.73m 55 (L) 46 (L) 70 Phencyclidine Negative Negative Benzodiazepines Urine Negative Negative Cocaine Urine Negative Negative Amphetamines Negative Negative Cannabinoids, Urine Negative Negative Opiates Negative Negative Barbiturates Negative Negative Ethanol, Urine <11 mg/dL <11 Oxycodone, Urine Negative Negative Total Cholesterol, Nonfasting <200 mg/dL 176 223 (H) Triglycerides, Nonfasting <150 mg/dL 358 (H) 521 (H) HDL Cholesterol, Nonfasting >39 mg/dL 43 39 (L) LDL Cholesterol, Nonfasting 61 Non HDL Cholesterol, Nonfasting <130 mg/dL 133 (H) 184 (H) VLDL Cholesterol, Nonfasting 72 (H) Total Chol/HDL Ratio, Nonfasting <5.10 mg/dL 4.09 5.72 (H) LDL/HDL Ratio, Nonfasting 1.42 Creatinine, Ur Random (UCRR) 20.0 - 300.0 mg/dL 32.5 36.3 Albumin, Urine Random mg/L 101.6 329.1 Albumin/Creat Ratio <30 mg/g 313 (H) 907 (H) Hemoglobin A1C 4.3 - 5.6 % 11.7 (H) 12.4 (H) Estimated Average Glucose mg/dL 289 309 NT Pro BNP <125 pg/mL 54 TSH 0.270 - 4.200 mIU/L 15.300 (H) 18.400 (H) 9.630 (H) Free T4 0.9 - 1.7 ng/dL 1.1 1.3 WSR 0 - 20 mm/hr 21 (H) CRP <0.9 mg/dL <0.3 Vitamin D 25 Hydroxy 31.0 - 80.0 ng/mL 10.9 (L) Free T3 2.3 - 4.1 pg/mL 1.9 (L) Creatinine Date Value Ref Range Status 04/29/2023 1.08 (H) 0.58 - 0.96 mg/dL Final 03/26/2023 0.95 0.58 - 0.96 mg/dL Final 01/15/2023 1.34 (H) 0.58 - 0.96 mg/dL Final 12/18/2022 1.16 (H) 0.58 - 0.96 mg/dL Final ASSESSMENT/PLAN: 1. Pericardial effusion - ICD9: 423.9, ICD10: I31.39 (primary diagnosis) 2. Weight gain - ICD9: 783.1, ICD10: R63.5 5. Leg swelling - ICD9: 729.81, ICD10: M79.89 - ECHO - PERFLUTREN LIPID MICROSPHERES 1.1 MG/ML INJECTION IN NS 10 ML - SODIUM CHLORIDE 0.9 % (FLUSH) INJECTION SYRINGE - NT PRO BNP - FUROSEMIDE 20 MG TABLET QD x 7 days 3. Acquired hypothyroidism - ICD9: 244.9, ICD10: E03.9 Continue current dosing and recheck level as previously ordered 4. 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) - ICD9: 250.50, 362.05, 362.07, ICD10: E11.3319 Recheck at 3 month sol - HGB A1C Recheck one week Denise Alvarado APRN.CNS Medical Decision Making: Problems: Moderate: 1+ chronic illnesses with change Data: Unique test(s) ordered: 1 Risk: Moderate: Drug management Medical Decision Making Level: 4 - Moderate documented in this encounterK[facility]08-11-2023 Miscellaneous Notes* Telephone Encounter - Mara Grady LPN - 05/14/2023 3:13 PM EDT Patient notified of providers message and verbalized understanding. * Telephone Encounter - Mara Grady LPN - 05/13/2023 4:32 PM EDT No answer and voice mailbox is full. * Telephone Encounter - Denise Alvarado APRN.QUALITY ASSURANCE PRACTICE MANAGER - 05/13/2023 4:19 PM EDT Check to see if able to obtain Trulicity. Will increase her dose of levothyroxine from 150 mcg to 175 mcg. Prescription sent to pharmacy. Sheshould let us know if any problems with the new prescription. Recheck TSH in 3 months. * Telephone Encounter - Jaylyn Vazquez LPN - 05/05/2023 11:06 AM EDT TC to Samantha, she has NOT called the pharmacy to fill the Trulicity, will try to do today. Patient is taking her Levothyroxine, taking 2 hours before her dinner, has not missed any doses. Advised to drink more water/fluids, Patient verbalized understanding. Jaylyn Vazquez LPN * Telephone Encounter - Justine Gomez Ma - 05/04/2023 11:14 AM EDT Message left for pt to call back. Justine Gomez Ma * Telephone Encounter - Cheryl Davila OCCA - 05/03/2023 3:09 PM EDT TC to patient with no answer. Left VM to return call to office regarding recent lab results. ANGEL Marc * Telephone Encounter - AlvaradoDenise APRN.QUALITY ASSURANCE PRACTICE MANAGER - 04/30/2023 4:50 PM EDT Check to see if she was able to get Trulicity from the pharmacy. Check to see if she is taking her levothyroxine as ordered or missing doses. Metabolic panel shows that she needs to drink more fluids, should try to drink eight glasses or cups of fluid daily (64oz) Component Latest Ref Rng & Units 12/18/2022 01/15/2023 03/26/2023 04/29/2023 WBC 3.70 - 11.00 k/uL 5.77 5.58 5.05 RBC 3.90 - 5.20 m/uL 3.75 (L) 3.93 4.01 Hemoglobin 11.5 - 15.5 g/dL 10.3 (L) 10.4 (L) 10.9 (L) Hematocrit 36.0 - 46.0 % 33.3 (L) 34.5 (L) 35.2 (L) MCV 80.0 - 100.0 fL 88.8 87.8 87.8 MCH 26.0 - 34.0 pg 27.5 26.5 27.2 MCHC 30.5 - 36.0 g/dL 30.9 30.1 (L) 31.0 RDW-CV 11.5 - 15.0 % 13.8 13.8 15.0 Platelet Count 150 - 400 k/uL 160 163 135 (L) MPV 9.0 - 12.7 fL 11.6 11.7 11.4 Neut% % 64.3 Abs Neut (ANC) 1.45 - 7.50 k/uL 3.58 Lymph% % 21.1 Abs Lymph 1.00 - 4.00 k/uL 1.18 [place]% % 8.2 Abs [place] <0.87 k/uL 0.46 Eosin% % 5.2 Abs Eosin <0.46 k/uL 0.29 Baso% % 0.7 Abs Baso <0.11 k/uL 0.04 Immature Gran % % 0.5 IMMATURE GRANS (ABS) <0.10 k/uL 0.03 NRBC /100 WBC 0.0 Absolute nRBC <0.01 k/uL <0.01 <0.01 <0.01 DTYPE Auto Protein, Total 6.3 - 8.0 g/dL 6.8 7.0 7.1 Albumin 3.9 - 4.9 g/dL 3.9 4.1 4.2 Calcium 8.5 - 10.2 mg/dL 9.4 9.6 9.2 10.1 Bilirubin, Total 0.2 - 1.3 mg/dL 0.2 0.2 0.2 Alkaline Phosphatase 34 - 123 U/L 67 65 66 AST 13 - 35 U/L 22 27 25 ALT 7 - 38 U/L 22 26 25 Glucose 74 - 99 mg/dL 444 (H) 322 (H) 316 (H) 339 (H) BUN 7 - 21 mg/dL 34 (H) 36 (H) 32 (H) 36 (H) Creatinine 0.58 - 0.96 mg/dL 1.16 (H) 1.34 (H) 0.95 1.08 (H) Sodium 136 - 144 mmol/L 137 140 139 135 (L) Potassium 3.7 - 5.1 mmol/L 4.1 4.6 4.3 4.1 Chloride 97 - 105 mmol/L 98 99 99 96 (L) CO2 22 - 30 mmol/L 26 29 24 26 Anion Gap 9 - 18 mmol/L 13 12 16 13 eGFR >=60 mL/min/1.73m 55 (L) 46 (L) 70 60 Phencyclidine Negative Negative Benzodiazepines Urine Negative Negative Cocaine Urine Negative Negative Amphetamines Negative Negative Cannabinoids, Urine Negative Negative Opiates Negative Negative Barbiturates Negative Negative Ethanol, Urine <11 mg/dL <11 Oxycodone, Urine Negative Negative Total Cholesterol, Nonfasting <200 mg/dL 176 223 (H) Triglycerides, Nonfasting <150 mg/dL 358 (H) 521 (H) HDL Cholesterol, Nonfasting >39 mg/dL 43 39 (L) LDL Cholesterol, Nonfasting 61 Non HDL Cholesterol, Nonfasting <130 mg/dL 133 (H) 184 (H) VLDL Cholesterol, Nonfasting 72 (H) Total Chol/HDL Ratio, Nonfasting <5.10 mg/dL 4.09 5.72 (H) LDL/HDL Ratio, Nonfasting 1.42 Creatinine, Ur Random (UCRR) 20.0 - 300.0 mg/dL 32.5 36.3 Albumin, Urine Random mg/L 101.6 329.1 Albumin/Creat Ratio <30 mg/g 313 (H) 907 (H) Hemoglobin A1C 4.3 - 5.6 % 11.7 (H) 12.4 (H) Estimated Average Glucose mg/dL 289 309 NT Pro BNP <125 pg/mL 54 TSH 0.270 - 4.200 mIU/L 15.300 (H) 18.400 (H) 9.630 (H) 28.600 (H) Free T4 0.9 - 1.7 ng/dL 1.1 1.3 WSR 0 - 20 mm/hr 21 (H) CRP <0.9 mg/dL <0.3 Vitamin D 25 Hydroxy 31.0 - 80.0 ng/mL 10.9 (L) Free T3 2.3 - 4.1 pg/mL 1.9 (L) documented in this encounterK[facility]08-09-2023 Miscellaneous Notes* Telephone Encounter - Sarina Adams MD - 05/12/2023 12:33 AM EDT Okayed * Telephone Encounter - Jaylyn Vazquez LPN - 05/11/2023 10:29 AM EDT Patient has been identified by name and date of : Yes Patient phones for refill(s): Requested Prescriptions Pending Prescriptions Disp Refills hydroCHLOROthiazide 50 mg tablet 30 tablet 2 Sig: Take 1 tablet by mouth once daily. Date of last office visit in primary care: 04/29/2023 3 month follow-up: 06/28/2023 Last 2 Encounter Wt Readings: Date: Wt: 04/29/2023 101.6 kg (224 lb) 03/26/2023 106.1 kg (234 lb) Previous labs/tests for medication: Blood Pressure: BUN (mg/dL) Date Value 04/29/2023 36 05/22/2021 38 Sodium (mmol/L) Date Value 04/29/2023 135 05/22/2021 137 Last 1 Encounter BP Readings: Date: BP: 04/29/2023 120/68 Please advise. Thank you. Jaylyn Vazquez LPN documented in this encounterKet[facility]08-08-2023 Miscellaneous Notes* Telephone Encounter - Jaylyn Vazquez LPN - 05/11/2023 9:31 AM EDT Test strips were escripted 04/21/2023, 50 strips, 3 refills. Patient has been identified by name and date of : Yes Patient phones for refill(s): Requested Prescriptions Pending Prescriptions Disp Refills hydrocortisone 2.5 % cream 20 g 0 Sig: Apply 1 application to affected area twice daily. Location: hands and chest Date of last office visit in primary care: 04/29/2023 3 month follow-up: 06/28/2023 Last 2 Encounter Wt Readings: Date: Wt: 04/29/2023 101.6 kg (224 lb) 03/26/2023 106.1 kg (234 lb) Previous labs/tests for medication: Not applicable Please advise. Thank you. Jaylyn Vazquez LPN documented in this encounterKet[facility]07-19-2023 Miscellaneous Notes* Telephone Encounter - Jaylyn Vazquez LPN - 04/21/2023 9:52 AM EDT Patient will check with pharmacy re: refill. Jaylyn Vazquez LPN documented in this encounterKet[facility]07-19-2023 Miscellaneous Notes* Telephone Encounter - Jaylyn Vazquez LPN - 04/21/2023 9:49 AM EDT Duplicate request, Patient to check with pharmacy. Jaylyn Vazquez LPN documented in this encounterKettering [facility]07-18-2023 Miscellaneous Notes* Telephone Encounter - Rosendo Navarro MA - 04/20/2023 10:45 AM EDT Replied to pt CustomMade message about mediation refill insulin aspart U-100 (NOVOLOG FLEXPEN U-100 INSULIN) 100 unit/mL (3 mL). Please allow 3 business days to process. Routed to provider Rosendo Navarro MA documented in this encounterK[facility] Washington [place] Miscellaneous Notes* Telephone Encounter - Rosendo Navarro MA - 04/20/2023 10:20 AM EDT Requester: Patient Patients last Endocrinology visit occurred 10/21/22. Follow-up evaluation has Not been established Upcoming Endocrinology Appointments - Next 365 Days No appointments to display . Requested Prescriptions Pending Prescriptions Disp Refills insulin aspart U-100 (NOVOLOG FLEXPEN U-100 INSULIN) 100 unit/mL (3 mL) [Pharmacy Med Name: [id number] UNIT/ML FLEXPEN] 15 mL Sig: inject 20 units with meals three times a day , PLUS SLIDING SCALE #2 BASED ON PRE-MEAL BLOOD SUGAR (AROUND 80 UNITS PER DAY) If patient is due for an appointment please route to provider for refill consideration and also to the endo scheduling pool. PSS NOTE: Patient needs scheduled appointment Yes [facility] Miscellaneous Notes* Telephone Encounter - Sarina Adams MD - 04/19/2023 7:28 PM EDT Okayed * Telephone Encounter - Rosa Elena Deluca LPN - 04/19/2023 4:11 PM EDT Last office visit: 03/26/23 Next appointment scheduled: 04/29/23 Last labs: 03/26/23 Patient phones requesting refills as follows: Requested Prescriptions Pending Prescriptions Disp Refills rosuvastatin (CRESTOR) 10 mg tablet 30 tablet 11 Sig: Take 1 tablet by mouth daily at bedtime. flash glucose sensor (FREESTYLE TAYLOR 14 DAY SENSOR) kit 2 Kit 5 Sig: Use to check blood sugar 4 times daily. Please give 2 sensors per refill Rosa Elena Deluca LPN documented in this encounterK[facility]07-17-2023 Miscellaneous Notes* Telephone Encounter - Sarina Adams MD - 04/19/2023 7:28 PM EDT The following approved medication requests have been transmitted electronically. Requested Prescriptions Signed Prescriptions Disp Refills Blood-Glucose Meter monitoring kit 1 Each 0 Sig: Check sugars daily and as needed (Freestyle Lite is what she has had) Authorizing Provider: SARINA ADAMS HYDROcodone-acetaminophen (NORCO) 5-325 mg per tablet 30 tablet 0 Sig: Take 1 tablet by mouth once daily as needed for pain for up to 30 days. Do not start before April 25, 2023. Authorizing Provider: SARINA ADAMS gabapentin (NEURONTIN) 600 mg tablet 60 tablet 5 Sig: Take 1 tablet by mouth twice daily for 180 days. Do not start before April 25, 2023. Authorizing Provider: SARINA ADAMS MD * Telephone Encounter - Rosa Elena Deluca LPN - 04/19/2023 4:13 PM EDT Last office visit: 03/26/23 Next appointment scheduled: 04/29/23 Last labs: 03/26/23 Patient phones requesting refills as follows: Requested Prescriptions Pending Prescriptions Disp Refills Blood-Glucose Meter monitoring kit 1 Each 0 Sig: Check sugars daily and as needed (Freestyle Lite is what she has had) HYDROcodone-acetaminophen (NORCO) 5-325 mg per tablet 30 tablet 0 Sig: Take 1 tablet by mouth once daily as needed for pain for up to 30 days. gabapentin (NEURONTIN) 600 mg tablet 60 tablet 5 Sig: Take 1 tablet by mouth twice daily for 180 days. Please review and advise. Rosa Elena Deluca LPN documented in this encounterK[facility]-12-[facility]23 History of Present illness Narrative* Aby Mnacuso RPFT - 04/14/2023 2:25 PM EDT PULM FUNCTION SMARTBLOCK: Provider: Brooke Be PA-C Assisting Tech: Aby Mancuso RPFT Oximetry - Ambulation: 1 documented in this encounterK[facility]07-07-[facility]23 Discharge summary Author Tavo Son [facility] April 09, 2023 10:25pm Note Date/Time April 09, 2023 7:59p [facility] Medical Records Department [address] [place] [address] Emergency Department Summary 04/09/23 MR#: [id number] Acct: [id number] Name: SAMANTHA ROMERO Rep #:[id number] : 1965 57 From: Taylor CIFUENTES PCP: Dr. Sarina Adams MD Status:RE G ER Location: ED HPI <ESAU Dias - Last Filed: 04/09/23 20:58> History of Present Illness Chief Complaint: Weakness Narrative Narrative: 57-year-old female with PMH of HTN, HLD, DM2, oxygen dependent presents with 3 days of fatigue, cough, and shortness of breath. She has required O2 since she had COVID a couple years ago and normally wears 2 L continuously. She turned herself up to 3 L today because she felt short of breath. She occasionally has chest tightness. She denies fever chills or GI symptoms. No sick contacts. She quit smoking 7 years ago. PFSH <ESAU Dias - Last Filed: 04/09/23 20:58> [facility] Medical History Anemia Chronic respiratory failure with hypoxia Elevated lipase Former tobacco use Hypercholesteremia Hypertension Hypothyroid Kidney stones Migraines Obesity Pericardial effusion Thrombocytopenia Type 2 diabetes mellitus Urinary retention UTI (urinary tract infection) Home Medications fluticasone propionate 50 mcg/actuation nasal spray,suspension 2 spray QHS nasalspray 05/24/15 [History Last Taken 03/24/21] dulaglutide 1.5 mg/0.5 mL subcutaneous pen injector (Trulicity) 1.5 mg subcut SUdm 03/25/21 [History Last Taken 03/23/21] estradiol 0.01% (0.1 mg/gram) vaginal cream 3 g vaginal .2X/WEEK health maintenance 03/25/21 [History Last Taken Unknown] fenofibrate 160 mg tablet 160 mg PO DAILY cholesterol 03/25/21 [History Last Taken 03/24/21] gabapentin 300 mg capsule 300 mg PO QHS nerve pain 03/25/21 [History Last Taken 03/24/21] levothyroxine 175 mcg tablet 175 mcg PO DAILY thyroid 03/25/21 [History Last Taken 03/24/21] omega-3 fatty acids-vitamin E 1,000 mg capsule 1 cap PO DAILY supplement 03/25/21 [History Last Taken 03/24/21] vitamin E 268 mg (400 unit) capsule 400 unit PO DAILY supplement 03/25/21 [History Last Taken 03/24/21] dicyclomine 10 mg capsule 10 mg PO ACHS abdominal pain 07/06/21 [History Last Taken Unknown] hydrochlorothiazide 12.5 mg capsule 12.5 mg PO DAILY diuretic 07/06/21 [History Last Taken Unknown] insulin degludec 100 unit/mL (3 mL) subcutaneous pen (Tresiba FlexTouch U-100 insulin) 52 unit subcut QHS diabetes 07/06/21 [History Last Taken Unknown] ketorolac 0.5 % eye drops 1 drp ophthalmic (eye) Q6H eye 07/06/21 [History Last Taken Unknown] lisinopril 2.5 mg tablet 2.5 mg PO DAILY blood pressure 07/06/21 [History Last Taken Unknown] meloxicam 15 mg tablet 15 mg PO DAILY PRN Pain 07/06/21 [History Last Taken Unknown] ondansetron 4 mg disintegrating tablet 4 mg PO Q8H PRN nausea and vomiting #10 tabs 07/06/21 [Rx Last Taken Unknown] prednisolone acetate 1 % eye drops,suspension 1 drp ophthalmic (eye) Q6H eye 07/06/21 [History Last Taken Unknown] rosuvastatin 10 mg tablet 10 mg PO DAILY cholesterol 07/06/21 [History Last Taken Unknown] insulin lispro 100 unit/mL subcutaneous pen (Humalog KwikPen (U-100) Insulin) 8 unit (0.08 mL) subcut TIDCM #0 mL 07/21/21 [Rx Last Taken Unknown] levofloxacin 500 mg tablet 500 mg PO DAILY #4 tabs 08/11/22 [Rx Last Taken Unknown] Allergy/AdvReac Type Severity Reaction Status Date / Time metformin AdvReac Diarrhea Verified 04/09/23 19:43 oxycodone [From Percocet] AdvReac upset Verified 04/09/23 19:43 stomach/off balance Family History Mother Diabetes Father Diabetes Surgical History History of appendectomy Previous section Social History household members: none Smoking Status: Former smoker how long ago did patient quit smoking: Quit cigarette tobacco in 2014, 1 ppd since teenager until quit. alcohol intake: never substance use type: does not use ROS <ESAU Dias - Last Filed: 04/09/23 20:58> ROS ED ROS Narrative Constitutional: Positive for malaise. Negative for fever, chills. Eyes: Negative for visual change. ENT: Positive for rhinorrhea. CVS: Negative for palpitations, syncope. Respiratory: Positive for shortness of breath, cough. GI: Negative for abdominal pain, nausea, vomiting, diarrhea. : Negative for dysuria. Neuro: Negative for headache. Skin: Negative for rash. EXAM <ESAU Dias - Last Filed: 04/09/23 20:58> Physical Exam Narrative Exam Narrative: CONST: Patient sitting in no acute distress. EYES: Normal inspection. ENT: Normal inspection, moist mucous membranes. NECK: Normal inspection. RESP: Slightly tachypneic at 24/min, CTAB. No retractions. CVS: Regular rate and rhythm, no murmur, no gallop. ABD: Soft and nontender, no guarding or rebound, nondistended. SKIN: Color normal, no rash, warm, dry, intact. EXTREMITIES: Normal appearance, 2+ bilateral ankle edema. NEURO: Oriented x4. PSYCH: Normal affect. Const Vital Signs: 04/09/23 19:43 04/09/23 20:20 04/09/23 20:44 Temperature 98.2 F Temperature Source Temporal Pulse Rate 77 79 81 Respiratory Rate 22 H 14 12 Blood Pressure 109/40 L 89/48 L 94/54 L Blood Pressure Mean 63 61 67 Pulse Ox 92 96 96 Oxygen Delivery Method Nasal Cannula Nasal Cannula Nasal Cannula Oxygen Flow Rate (L/min) 3 4 4 04/09/23 20:08 Temperature Temperature Source Pulse Rate 73 Respiratory Rate 18 Blood Pressure Blood Pressure Mean Pulse Ox Oxygen Delivery Method Oxygen Flow Rate (L/min) <Dr. Tavo Son DO - Last Filed: 04/09/23 21:53> Physical Exam Const Vital Signs: 04/09/23 19:43 04/09/23 20:20 04/09/23 20:44 Temperature 98.2 F Temperature Source Temporal Pulse Rate 77 79 81 Respiratory Rate 22 H 14 12 Blood Pressure 109/40 L 89/48 L 94/54 L Blood Pressure Mean 63 61 67 Pulse Ox 92 96 96 Oxygen Delivery Method Nasal Cannula Nasal Cannula Nasal Cannula Oxygen Flow Rate (L/min) 3 4 4 04/09/23 20:08 Temperature Temperature Source Pulse Rate 73 Respiratory Rate 18 Blood Pressure Blood Pressure Mean Pulse Ox Oxygen Delivery Method Oxygen Flow Rate (L/min) [facility] <ESAU Dias - Last Filed: 04/09/23 20:58> [facility] Narrative Medical decision making narrative: Patient was evaluated for recent fatigue, cough, and shortness of breath. She appears ill but nontoxic. Respiratory rate is 22, she is 92% on 3 L (baseline wears 2 L), otherwise normal vital signs. During my examination she is mildly tachypneic between 22 to 24 breaths a minute. Her heart sounds regular with no murmurs and lungs are clear. She has 2+ symmetric ankle edema which she states is chronic. Labs and CXR were ordered to rule out pneumonia, CHF, ACS among other possibilities. Lab Data Attestation: I reviewed the patient's lab results. Labs: Laboratory Results - last 24 hr 04/09/23 04/09/23 04/09/23 20:08 20:08 20:54 WBC Cancelled 8.1 Corrected WBC Cancelled RBC Cancelled 3.94 L Hgb Cancelled 10.9 L Hct Cancelled 34.2 L MCV Cancelled 86.8 MCH Cancelled 27.7 MCHC Cancelled 31.9 L RDW Std Deviation Cancelled 48.0 H RDW Coeff of Catina Cancelled 15.1 H Plt Count Cancelled 151 MPV Cancelled 11.8 Immature Gran % (Auto) Cancelled 0.200 Neut % (Auto) Cancelled 57.0 Lymph % (Auto) Cancelled 33.8 [place] % (Auto) Cancelled 6.7 Eos % (Auto) Cancelled 2.1 Baso % (Auto) Cancelled 0.2 Absolute Neuts (auto) Cancelled 4.6 Absolute Lymphs (auto) Cancelled 2.73 Total Counted Cancelled Neutrophils % (Manual) Cancelled Band Neutrophils % Cancelled Lymphocytes % (Manual) Cancelled Monocytes % (Manual) Cancelled Eosinophils % (Manual) Cancelled Basophils % (Manual) Cancelled Metamyelocytes % Cancelled Myelocytes % Cancelled Promyelocytes % Cancelled Blast Cells % Cancelled Plasma Cell % (Manual) Cancelled Other Cells % Cancelled Nucleated RBC % Cancelled 0 Nucleated RBCs/100 WBC Cancelled Differential Comment Cancelled Diff Path Review Cancelled Hypersegmented Neuts Cancelled Atypical Lymphocytes Cancelled Reactive Lymphocytes Cancelled Smudge Cells Cancelled Toxic Granulation Cancelled Toxic Vacuolation Cancelled Dohle Bodies Cancelled Serge Rods Cancelled Platelet Estimate Cancelled Plt Morphology Comment Cancelled RBC Morphology Cancelled Cancelled Polychromasia Cancelled Hypochromasia Cancelled Poikilocytosis Cancelled Basophilic Stippling Cancelled Anisocytosis Cancelled Microcytosis Cancelled Macrocytosis Cancelled Spherocytes Cancelled Sickle Cells Cancelled Target Cells Cancelled Tear Drop Cells Cancelled Ovalocytes Cancelled Stomatocytes Cancelled Vega-Hewitt Bodies Cancelled [place] Cells Cancelled Bite Cells Cancelled Crenated Cell Cancelled Acanthocytes (Spur) Cancelled Rouleaux Cancelled Schistocytes Cancelled Sodium 133 L Potassium 4.8 Chloride 98 Carbon Dioxide 28.0 Anion Gap 7 BUN 55 H Creatinine 1.77 H Est GFR (MDRD) Af Amer 38 L Est GFR (MDRD) Non-Af 31 L BUN/Creatinine Ratio 31.1 H Glucose 446 H Calcium 9.6 Troponin I High Sens 37 B-Natriuretic Peptide Cancelled 6.7 Radiography Diagnostic Testing: Clinical Impression(s) from Imaging Studies Chest X-Ray 04/09/23 20:25 IMPRESSION: 1. Poor inspiration with some bibasilar atelectasis. 2. Cardiomegaly. Electronically Signed: Man Staton MD at 20:50 EDT , <Dr. Tavo Son, DO - Last Filed: 04/09/23 21:53> [facility] Lab Data Labs: Laboratory Results - last 24 hr 04/09/23 04/09/23 04/09/23 20:08 20:08 20:54 WBC Cancelled 8.1 Corrected WBC Cancelled RBC Cancelled 3.94 L Hgb Cancelled 10.9 L Hct Cancelled 34.2 L MCV Cancelled 86.8 MCH Cancelled 27.7 MCHC Cancelled 31.9 L RDW Std Deviation Cancelled 48.0 H RDW Coeff of Catina Cancelled 15.1 H Plt Count Cancelled 151 MPV Cancelled 11.8 Immature Gran % (Auto) Cancelled 0.200 Neut % (Auto) Cancelled 57.0 Lymph % (Auto) Cancelled 33.8 [place] % (Auto) Cancelled 6.7 Eos % (Auto) Cancelled 2.1 Baso % (Auto) Cancelled 0.2 Absolute Neuts (auto) Cancelled 4.6 Absolute Lymphs (auto) Cancelled 2.73 Total Counted Cancelled Neutrophils % (Manual) Cancelled Band Neutrophils % Cancelled Lymphocytes % (Manual) Cancelled Monocytes % (Manual) Cancelled Eosinophils % (Manual) Cancelled Basophils % (Manual) Cancelled Metamyelocytes % Cancelled Myelocytes % Cancelled Promyelocytes % Cancelled Blast Cells % Cancelled Plasma Cell % (Manual) Cancelled Other Cells % Cancelled Nucleated RBC % Cancelled 0 Nucleated RBCs/100 WBC Cancelled Differential Comment Cancelled Diff Path Review Cancelled Hypersegmented Neuts Cancelled Atypical Lymphocytes Cancelled Reactive Lymphocytes Cancelled Smudge Cells Cancelled Toxic Granulation Cancelled Toxic Vacuolation Cancelled Dohle Bodies Cancelled Serge Rods Cancelled Platelet Estimate Cancelled Plt Morphology Comment Cancelled RBC Morphology Cancelled Cancelled Polychromasia Cancelled Hypochromasia Cancelled Poikilocytosis Cancelled Basophilic Stippling Cancelled Anisocytosis Cancelled Microcytosis Cancelled Macrocytosis Cancelled Spherocytes Cancelled Sickle Cells Cancelled Target Cells Cancelled Tear Drop Cells Cancelled Ovalocytes Cancelled Stomatocytes Cancelled Vega-Hewitt Bodies Cancelled [place] Cells Cancelled Bite Cells Cancelled Crenated Cell Cancelled Acanthocytes (Spur) Cancelled Rouleaux Cancelled Schistocytes Cancelled Sodium 133 L Potassium 4.8 Chloride 98 Carbon Dioxide 28.0 Anion Gap 7 BUN 55 H Creatinine 1.77 H Est GFR (MDRD) Af Amer 38 L Est GFR (MDRD) Non-Af 31 L BUN/Creatinine Ratio 31.1 H Glucose 446 H Calcium 9.6 Troponin I High Sens 37 B-Natriuretic Peptide Cancelled 6.7 Radiography Diagnostic Testing: Clinical Impression(s) from Imaging Studies Chest X-Ray 04/09/23 20:25 IMPRESSION: 1. Poor inspiration with some bibasilar atelectasis. 2. Cardiomegaly. Electronically Signed: Man Staton MD at 20:50 EDT , Treatment and Re-Evaluation :: I have personally performed a face to face assessment of the patient and have reviewed the BINA Note. I performed a substantive portion of the visit including all aspects of the following. My fontanez findings include: History: Patient presents with shortness of breath and weakness that has been getting worse over the past few days. Patient is on home oxygen at 2 L nasal cannula. Patient states she has had to increase this to 3 L at home. Patient denies any fevers or chills. Patient denies any chest pain. Patient does admitto some increased swelling in her ankles Exam: Vital signs are stable. Patient is afebrile. Patient is in no acute distress. Oral mucosa is pink and moist. Neck is supple. Trachea is midline. There is no JVD noted. Heart was regular rate and rhythm. Lungs are diminishedbilaterally. There is good respiratory effort noted. Abdomen is soft. Bowel sounds are normal. There is mild diffuse tenderness. There is no rebound or guarding noted. Cranial nerves II through XII are intact. There are no focal motor or sensory deficits noted. Medical Decision Making: Differential diagnosis includes pneumonia, congestive heart failure, cardiac dysrhythmia, cardiac ischemia, pneumothorax, and anxiety. EKG will be obtained to assess for cardiac dysrhythmia and cardiac ischemia. Chest x-ray will be obtained to assess for pneumonia and pneumothorax. CBC willbe obtained to assess for leukocytosis and anemia. Basic metabolic profile willbe obtained to assess for electrolyte abnormality and renal function. BNP will be obtained to assess for congestive heart failure. High-sensitivity troponin will be obtained to assess for cardiac ischemia. COVID-19 rapid antigen will beobtained to assess for COVID-19 infection. Influenza A and influenza B antigenswill be obtained to assess for influenza infection. Patient was given a DuoNeb aerosol here. EKG was obtained. On my independent interpretation, it shows a normal sinus rhythm with a rate of 81. DE interval was normal at 170 ms. QRS interval was normal at 100 ms. QTc interval was normal at 466 ms. [place] was normal at -7. There are no acute ST or T wave changes noted. PA and lateral chest x-ray was obtained. There are 2 views. Onmy independent interpretation, lung carrera are clear. There is normal cardiac silhouette. Bony thorax is normal. There is no acute process noted. Radiologist also interpreted the x-ray and agrees. Basic metabolic profile was reviewed. Creatinine was slightly elevated at 1.77 and BUN was 55. These are consistent with prior results. Glucose was elevated at 446. Anion gap was normal. CO2 was normal. High-sensitivity troponin was reviewed and was normal at 37. BNP was reviewed and was normal at 6.7. Patient was advised of her findings. Patient was instructed to follow-up with her primary care physician in 5 to 7 days. Patient was instructed return if worse in any way. Patient understood and was agreeable with the plan. All questions were answered. Discharge Plan Triage Chief Complaint: Weakness ED Midlevel Provider: Taylor Nassar ED Provider: Tavo Son Dx/Rx/DC Orders Clinical Impression: Dyspnea Instructions: ED Dyspnea Prescriptions: No Action fluticasone propionate 1 SPRAY spray,suspension 2 spray NASAL QHS Patient Comments: allergies gabapentin 300 mg capsule 300 mg PO QHS Patient Comments: take 1 capsule by mouth at bedtime estradiol 0.01 % (0.1 mg/gram) cream 3 g VAGINAL .2X/WEEK Patient Comments: insert 3 grams vaginally two times a week fenofibrate 160 mg tablet 160 mg PO DAILY Patient Comments: take 1 tablet by mouth once daily Trulicity 1.5 mg/0.5 mL pen injector 1.5 mg SUBCUT JOHNSON Patient Comments: inject 0.5 milliliters ( 1 AND 1/2 milligrams ) subcutaneously every week levothyroxine 175 mcg tablet 175 mcg PO DAILY Patient Comments: take 1 tablet by mouth once daily ON AN EMPTY STOMACH (FOR THYROID) vitamin E 400 unit Capsule 400 unit PO DAILY omega-3 fatty acids-vitamin E 1,000 mg Capsule 1 cap PO DAILY meloxicam 15 mg tablet 15 mg PO DAILY PRN (Reason: Pain) Patient Comments: take 1 tablet by mouth once daily if needed for pain with food ketorolac 0.5 % drops 1 drp ophthalmic (eye) Q6H Patient Comments: instill 1 drop into left eye four times a day prednisolone acetate 1 % drops,suspension 1 drp ophthalmic (eye) Q6H Patient Comments: instill 1 drop into right eye four times a day hydrochlorothiazide 12.5 mg capsule 12.5 mg PO DAILY Patient Comments: take 1 capsule by mouth once daily lisinopril 2.5 mg tablet 2.5 mg PO DAILY Patient Comments: take 1 tablet by mouth once daily dicyclomine 10 mg capsule 10 mg PO ACHS Patient Comments: take 1 capsule by mouth four times a day before meals and at bedtime FOR ABDOMINAL PAIN rosuvastatin 10 mg tablet 10 mg PO DAILY Patient Comments: take 1 tablet by mouth at bedtime insulin degludec [Tresiba FlexTouch U-100] 100 unit/mL (3 mL) insulin pen 52 unit SUBCUT QHS Patient Comments: INJECT 50 UNITS SUBCUTANEOUSLY DAILY AT BEDTIME ondansetron 4 mg tablet,disintegrating 4 mg PO Q8H PRN (Reason: nausea and vomiting) Qty: 10 0RF insulin lispro [Humalog KwikPen Insulin] 100 unit/mL Insulin Pen 8 unit subcut TIDCM Qty: 0 0RF levofloxacin 500 mg tablet 500 mg PO DAILY Qty: 4 0RF Rx Instructions: start on 08/12/22 Primary Care Provider: Sarina Adams Referrals: Sarina Adams MD [Primary Care Provider] - 3-5 Days Disposition Disposition: Home, Self Care What to do if you have Problems For any increased pain, shortness of breath, bleeding, nausea or vomiting, chestpain, or any unexpected problems, contact your Primary Care Provider. Call [facility] ([phone]) or report to the closest Emergency Room. Call 911 if necessary. 04/09/232057 <Electronically signed by Taylor CIFUENTES> Cosigner Signature (if applicable): 04/09/232224 <Electronically signed by Tavo Son DO> CC: Dr. Sarina Adams MD ~ Signed [facility] Work Phone: [phone]) 578-145706-28-2023 Miscellaneous Notes* Telephone Encounter - Jaylyn Vazquez LPN - 03/31/2023 11:03 AM EDT Patient has been identified by name and date of : Yes Patient phones for refill(s): Requested Prescriptions Pending Prescriptions Disp Refills hydroCHLOROthiazide 50 mg tablet [Pharmacy Med Name: HYDROCHLOROTHIAZIDE 50 MG TAB] 30 tablet 2 Sig: take 1 tablet by mouth once daily Date of last office visit in primary care: 03/26/2023 Follow-up: 04/29/2023 Last 2 Encounter Wt Readings: Date: Wt: 03/26/2023 106.1 kg (234 lb) 01/25/2023 103 kg (227 lb) Previous labs/tests for medication: Blood Pressure: BUN (mg/dL) Date Value 03/26/2023 32 05/22/2021 38 Sodium (mmol/L) Date Value 03/26/2023 139 05/22/2021 137 Last 1 Encounter BP Readings: Date: BP: 03/26/2023 112/60 Please advise. Thank you. Jaylyn Vazquez LPN documented in this [facility]27-[facility] History of Present illness Narrative* Kimberly Brunson - 03/30/2023 2:33 PM EDT Contacted patient, scheduled oximetry with ambulation testing and a follow up Patient was given the phone number to schedule pain consult with Dr. Fausto Brunson * Sarina Adams MD - 03/26/2023 3:10 PM EDT This note was created using Telerivetriter. Subjective Samantha Romero is a 57 year old female. Patient presents with: Established Patient SUBJECTIVE: Samantha Romero is a 57 year old year old lady here today for follow up appointment for review of medical conditions. Ongoing back pain. Gabapentin helps at night. Cannot do dishes. Cannot stand for long. Just a few minutes--less than 10 minutes/. Hurts while sitting at about 3/10. Reynolds helps. Not radiating into legs. Hands cramping--more on right. Left leg can cramp as well. Sore under left arm. Started about1 week ago. No change in activity. No falls. Noted that got lost to follow up with Dr. Douglas. Seems to cause BMs. Up and down because needs to go pee at night . Several times a night up to urinate. Leg swelling some worse the past month or two. Drops in eyes really helping. Follows with Dr. Zamora. Already change to whole wheat bread. Eats a lot tater tots and corn dogs. PAST MEDICAL HISTORY Diagnosis Date Chronic hypoxemic respiratory failure (HCC) COVID-19 07/06/2021 HTN (hypertension) Hyperlipidemia 04/05/2014 Hypothyroid 04/19/2014 Kidney stone on left side 04/12/2014 Myasthenia gravis (HCC) OA (osteoarthritis) of hip, bilateral 04/04/2014 Type II or unspecified type diabetes mellitus without mention of complication, uncontrolled 04/05/2014 Current Outpatient Medications Medication Sig HYDROcodone-acetaminophen (NORCO) 5-325 mg per tablet Take 1 tablet by mouth once daily as needed for pain for up to 5 days. lisinopril 2.5 mg tablet Take 1 tablet by mouth once daily. PEG 400-propylene glycol (SYSTANE ULTRA) 0.4-0.3 % ophthalmic solution Use 1 Drop in both eyes fourtimes daily. peg 400-propylene glycol (SYSTANE GEL) 0.4-0.3 % drpg Use 1 Drop in both eyes daily at bedtime. meloxicam (MOBIC) 15 mg tablet Take 1 tablet by mouth once daily as needed for pain. With food. blood sugar diagnostic (FREESTYLE LITE STRIPS) test strip Test blood sugar(s) 4 times daily. Dx: Other DM Code E11.40 Insulin: Yes hydrOXYzine HCl (ATARAX) 25 mg tablet Take 1-2 tablets by mouth at bedtime as needed. insulin degludec (TRESIBA FLEXTOUCH U-100) 100 unit/mL (3 mL) injection pen Inject 62 Units subcutaneously daily at bedtime. hydroCHLOROthiazide 50 mg tablet Take 1 tablet by mouth once daily. hydrocortisone 2.5 % cream Apply 1 application to affected area twice daily. Location: hands and chest levothyroxine (SYNTHROID) 150 mcg tablet Take 1 tablet by mouth daily before breakfast. blood sugar diagnostic (BLOOD GLUCOSE TEST) test strip Test blood sugar(s) 4 times daily. Dx: Type 2 DM - Controlled E11.9 Insulin: Yes Lancets lancets Test blood sugar(s) 4 times daily. Dx: E11.9 Insulin: Yes empagliflozin (JARDIANCE) 25 mg tablet Take 1 tablet by mouth daily with breakfast. Fenofibrate (LOFIBRA) 160 mg tablet Take 1 tablet by mouth once daily. rosuvastatin (CRESTOR) 10 mg tablet Take 1 tablet by mouth daily at bedtime. clotrimazole-betamethasone (LOTRISONE) cream Apply 1 application to affected area twice daily. X 2 weeks. fluticasone (FLONASE) 50 mcg/actuation nasal spray Use 1-2 Sprays in each nostril once daily as needed. flash glucose sensor (FREESTYLE TAYLOR 14 DAY SENSOR) kit Use to check blood sugar 4 times daily. Please give 2 sensors per refill gabapentin (NEURONTIN) 600 mg tablet Take 1 tablet by mouth twice daily for 90 days. insulin aspart U-100 (NOVOLOG FLEXPEN U-100 INSULIN) 100 unit/mL (3 mL) Inject 20 units with meals three times daily PLUS sliding scale SS#2 as based on a pre meal blood sugar. ~80 units daily Insulin [place], Disposable, (BD ULTRAFINE III MINI PEN) 31 gauge x 3/16 inject 1 subcutaneously four times a day dicyclomine (BENTYL) 10 mg capsule Take 1 capsule by mouth before meals and at bedtime. for abdominal pain pyridostigmine (MESTINON) 60 mg tablet Take 1 tablet by mouth three times daily. (Patient taking differently: Take 60 mg by mouth three times daily. Patient states she does not take it when she leaves the house due to side effects.) Blood-Glucose Meter monitoring kit Check sugars daily and as needed (Freestyle Lite is what she hashad) Vitamin E, dl, acetate, (VITAMIN E) 400 unit capsule Take 400 Units by mouth once daily. omega-3 fatty acids (FISH OIL CONCENTRATE ORAL) Take by mouth. Miscellaneous Medical Supply (BLOOD PRESSURE CUFF) 1 Each as needed. Blood pressure Monitor and Cuff, use as directed. Dx: I10 Hypertension flash glucose scanning reader (FREESTYLE TAYLOR 14 DAY READER) Use to check blood sugar 4 times daily estradiol (ESTRACE) 0.01 % (0.1 mg/gram) vaginal cream Use 3 g vaginally two times a week. Humphrey-3 Fatty Acids-Vitamin E 1,000 mg cap Take 1 capsule by mouth twice daily. tirzepatide (MOUNJARO) 10 mg/0.5 mL pen injector Inject 10 mg subcutaneously one time a week. Current Facility-Administered Medications Medication Dose Route Frequency perflutren lipid microspheres 1.3 mL in NaCl (PF) 0.9% 10 mL injection (DEFINITY) INTRAVENOUS DIRECTED PRN sodium chloride 0.9 % (flush) 10 mL (BD POSIFLUSH) 10 mL INTRAVENOUS DIRECTED PRN perflutren lipid microspheres 1.3 mL in NaCl (PF) 0.9% 10 mL injection (DEFINITY) INTRAVENOUS DIRECTED PRN sodium chloride 0.9 % (flush) 10 mL (BD POSIFLUSH) 10 mL INTRAVENOUS DIRECTED PRN sodium chloride 0.9 % (flush) 10 mL (BD POSIFLUSH) 10 mL INTRAVENOUS DIRECTED PRN Review of Systems Objective BP 112/60 Pulse 67 Temp 36.3 C (97.4 F) Resp 18 Wt 106.1 kg (234 lb) LMP 04/27/2016 SpO2 98% BMI 40.17 kg/m Physical Exam Constitutional: Appearance: Normal appearance. She is obese. HENT: Head: Normocephalic. Eyes: Conjunctiva/sclera: Conjunctivae normal. Cardiovascular: Rate and Rhythm: Normal rate and regular rhythm. Heart sounds: Normal heart sounds. Pulmonary: Effort: Pulmonary effort is normal. Breath sounds: Normal breath sounds. Musculoskeletal: Thoracic back: Spasms and tenderness present. Lumbar back: Spasms and tenderness present. Right lower le+ Edema present. Left lower le+ Edema present. Comments: Paravertebral muscles tight and tender along thoracic and lumbar spine. Tender SI joint areas In wheelchair because of back pain, leg weakness and leg pain. Skin: General: Skin is warm and dry. Neurological: General: No focal deficit present. Mental Status: She is alert and oriented to person, place, and time. Psychiatric: Attention and Perception: Attention and perception normal. Mood and Affect: Mood and affect normal. Speech: Speech normal. Behavior: Behavior normal. Thought Content: Thought content normal. Judgment: Judgment normal. Assessment and Plan Encounter Diagnosis ICD-10-CM 1. 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 Chronic midline low back pain, unspecified whether sciatica present M54.50 CONSULT TO PAIN MGT G89.29 HYDROcodone-acetaminophen (NORCO) 5-325 mg per tablet gabapentin (NEURONTIN) 600 mg tablet 3. Acquired hypothyroidism E03.9 TSH BLD T4 FREE/FREE THYROX T3 FREE BLD 4. Bilateral leg edema R60.0 5. Chronic hypoxemic respiratory failure ([facility]) J96.11 6. Essential hypertension I10 COMP METABOLIC PANEL CBC 7. Myasthenia gravis ([facility]) G70.00 DEPRESSION SCREENING/ASSESSMENT COMP METABOLIC PANEL CBC HGB A1C VITAMIN D 25 HYDROXY TSH BLD T4 FREE/FREE THYROX T3 FREE BLD 8. Class 3 severe obesity due to excess calories with serious comorbidity and body mass index (BMI)of 40.0 to 44.9 in adult ([facility]) E66.01 DEPRESSION SCREENING/ASSESSMENT Z68.41 COMP METABOLIC PANEL CBC HGB A1C VITAMIN D 25 HYDROXY TSH BLD T4 FREE/FREE THYROX T3 FREE BLD 9. Thrombocytopenia ([facility]) D69.6 TSH BLD T4 FREE/FREE THYROX T3 FREE BLD Above issues addressed with patient. Patient involved in shared decision making for management of medical issues. History and medications reviewed. Epic updated as needed Refills and/or prescriptions taken care of and meds adjusted as indicated after reviewed history, exam and labs. Health Maintenance reviewed. Updated record and/or ordered tests as recorded. Encouraged on efforts at healthy diet and regular exercise and adequate sleep. Stable with control of persistent back pain--will okay daily pill once a day. Send to pain management. RX for 30 days once daily for now with [facility]. At this time benefits outweigh risks. Continue to monitor for adverse effects and indications for decreasing dose or tapering off. No signs of diversion or abuse of medication(s); no adverse effects. Continue present management. I spent a total of 54 minutes on the date of the service which included [id number] patient care, completing clinical documentation, obtaining and/or reviewing separately obtained history, performing a medically appropriate examination, counseling and educating the patient/family/caregiver, ordering medications, tests, or procedures, and communicating results to the patient/family/caregiver. Sarina Adams MD documented in this encounterK[facility]-23-2023 Instructions* Patient Instructions* Sarina Adams MD - 03/26/2023 3:37 PM EDT Take thyroid pill by itself. May take at bedtime with ideally nothing to eat 2 hours prior. If taking in the morning, should be by itself and 30 to 60 minutes for taking anything else or eating anything. documented in this encounterK[facility]06-22-2023 Miscellaneous Notes* Telephone Encounter - Sarina Adams MD - 03/25/2023 10:14 PM EDT The following approved medication requests have been transmitted electronically. Requested Prescriptions Signed Prescriptions Disp Refills HYDROcodone-acetaminophen (NORCO) 5-325 mg per tablet 5 tablet 0 Sig: Take 1 tablet by mouth once daily as needed for pain for up to 5 days. Authorizing Provider: SARINA ADAMS MD * Telephone Encounter - Kristen Bronson LPN - 03/24/2023 4:53 PM EDT Patient has been identified by name and date of : Yes, Provider Dr. Adams Date 03/24/23 Time4:54 pm Patient phones for refill(s): Requested Prescriptions Pending Prescriptions Disp Refills HYDROcodone-acetaminophen (NORCO) 5-325 mg per tablet 5 tablet 0 Sig: Take 1 tablet by mouth once daily as needed for pain for up to 5 days. Date of last office visit in primary care: 01/15/23 next apt 03/26/23 Last 2 Encounter Wt Readings: Date: Wt: 01/25/2023 103 kg (227 lb) 01/15/2023 105.2 kg (232 lb) Previous labs/tests for medication: Not applicable Thank you. Kristen Bronson LPN documented in this encounterK[facility]06-21-2023 Miscellaneous Notes* Telephone Encounter - Tiny Leon RN - 03/24/2023 5:21 PM EDT Patient has been identified by name and date of : Yes, Provider Date Time Patient phones for refill(s): Requested Prescriptions Pending Prescriptions Disp Refills lisinopril 2.5 mg tablet 90 tablet 3 Sig: Take 1 tablet by mouth once daily. Date of last office visit with pcp: Next OV 03/26/23 Date of last office visit in primary care: 01/15/23 Last 2 Encounter Wt Readings: Date: Wt: 01/25/2023 103 kg (227 lb) 01/15/2023 105.2 kg (232 lb) Previous labs/tests for medication: Blood Pressure: BUN (mg/dL) Date Value 01/15/2023 36 05/22/2021 38 Sodium (mmol/L) Date Value 01/15/2023 140 05/22/2021 137 Last 1 Encounter BP Readings: Date: BP: 01/25/2023 114/64 Please advise. Thank you. Tiny Leon, RN documented in this encounterK[facility]06-21-2023 Miscellaneous Notes* Telephone Encounter - Kristen Bronson LPN - 03/24/2023 4:43 PM EDT I checked with the pharmacy and pt has refills left on both prescriptions below. Unable to reach ptby phone, voice mail is full. If pt calls back she can call the pharmacy for prescriptions to be filled. Kristen Bronson LPN documented in this encounterK[facility]06-06-2023 Miscellaneous Notes* Telephone Encounter - Mara Grady LPN - 03/09/2023 3:17 PM EDT Patient has been identified by name and date of : Yes, Provider Hima Date 03/09/23 Time 3:18pm Patient phones for refill(s): Requested Prescriptions Pending Prescriptions Disp Refills HYDROcodone-acetaminophen (NORCO) 5-325 mg per tablet 5 tablet 0 Sig: Take 1 tablet by mouth once daily as needed for pain for up to 5 days. meloxicam (MOBIC) 15 mg tablet 30 tablet 1 Sig: Take 1 tablet by mouth once daily as needed for pain. With food. Date of last office visit in primary care: 01/15/23 Next OV 03/26/23 Last 2 Encounter Wt Readings: Date: Wt: 01/25/2023 103 kg (227 lb) 01/15/2023 105.2 kg (232 lb) Please advise. Thank you. Mara Grady LPN documented in this encounterK[facility]06-01-2023 Miscellaneous Notes* Telephone Encounter - Kristen Bronson LPN - 03/04/2023 2:17 PM EDT Unable to reach pt by phone. Sending a Fatsoma message that her medication has been sent to the pharmacy. Kristen Bronson LPN * Telephone Encounter - Sarina Adams MD - 03/04/2023 2:05 PM EDT Noted has been getting refill at 5 to 30 day intervals since January appointment with Cole. Will discuss at upcoming March appointment. Continue present management. The following approved medication requests have been transmitted electronically. Requested Prescriptions Signed Prescriptions Disp Refills HYDROcodone-acetaminophen (NORCO) 5-325 mg per tablet 5 tablet 0 Sig: Take 1 tablet by mouth once daily as needed for pain for up to 5 days. Authorizing Provider: SARINA ADAMS MD * Telephone Encounter - Jaylyn Vazquez LPN - 03/04/2023 1:58 PM EDT Patient has been identified by name and date of : Yes Patient phones for refill(s): Requested Prescriptions Pending Prescriptions Disp Refills HYDROcodone-acetaminophen (NORCO) 5-325 mg per tablet 5 tablet 0 Sig: Take 1 tablet by mouth once daily as needed for pain for up to 5 days. Date of last office visit in primary care: 01/15/2023 Appt: 03/26/2023 Last 2 Encounter Wt Readings: Date: Wt: 01/25/2023 103 kg (227 lb) 01/15/2023 105.2 kg (232 lb) Previous labs/tests for medication: Not applicable Please advise. Thank you. Jaylyn Vazquez LPN documented in this encounterK[facility]05-17-2023 Miscellaneous Notes* Telephone Encounter - Cole Bower APRN.ADVISORY SOFTWARE ENGINEER - 02/17/2023 12:22 PM EDT PDMP website checked and validated. All prescriptions have been APPROPRIATELY filled. No suspiciousactivity was identified. 02/17/2023 by Cole Bower APRN.CNP * Telephone Encounter - Mara Grady LPN - 02/16/2023 6:56 AM EDT Patient has been identified by name and date of : Yes, Provider Hima Date 02/16/23 Time 6:57am Patient phones for refill(s): Requested Prescriptions Pending Prescriptions Disp Refills HYDROcodone-acetaminophen (NORCO) 5-325 mg per tablet 10 tablet 0 Sig: Take 1 tablet by mouth twice daily as needed for pain for up to 5 days. Date of last office visit in primary care: 01/15/23 Next appt 03/26/23 Last 2 Encounter Wt Readings: Date: Wt: 01/25/2023 103 kg (227 lb) 01/15/2023 105.2 kg (232 lb) Please advise. Thank you. Mara Grady LPN documented in this encounterK[facility]05-15-2023 Miscellaneous Notes* Telephone Encounter - Mara Grady LPN - 02/15/2023 3:43 PM EDT Patient has been identified by name and date of : Yes, Provider Hima Date 02/15/23 Time 3:44pm Patient phones for refill(s): Requested Prescriptions Pending Prescriptions Disp Refills hydrOXYzine HCl (ATARAX) 25 mg tablet 30 tablet 3 Sig: Take 1-2 tablets by mouth at bedtime as needed. Date of last office visit in primary care: 01/15/23 Last 2 Encounter Wt Readings: Date: Wt: 01/25/2023 103 kg (227 lb) 01/15/2023 105.2 kg (232 lb) Please advise. Thank you. Mara Grady LPN documented in this encounterK[facility]05-09-2023 Miscellaneous Notes* Telephone Encounter - Alicja Hilton MA - 02/09/2023 8:32 AM EDT Patient has been identified by name and date of : Yes Last office visit in this department: 01/15/2023 Next office visit in this department: 02/07/2023 Last prescribed 12/28/2022 # 63 ml with 3 refills. Unsure if PA was done for this medication. RX INSTRUCTIONS: Patient aware RX will be sent to pharmacy. No need to notify patient. Patient phones requesting refills as follows: Requested Prescriptions Pending Prescriptions Disp Refills insulin degludec (TRESIBA FLEXTOUCH U-100) 100 unit/mL (3 mL) injection pen 63 mL 3 Sig: Inject 62 Units subcutaneously daily at bedtime. Please review and advise. Alicja Hilton MA documented in this encounterK[facility]05-08-2023 Miscellaneous Notes* Telephone Encounter - Cole oBwer APRN.CNP - 02/08/2023 2:49 PM EDT PDMP website checked and validated. All prescriptions have been APPROPRIATELY filled. No suspiciousactivity was identified. 02/08/2023 by Cole Bower APRN.KENDAL * Telephone Encounter - ANGEL Marc - 02/08/2023 1:10 PM EDT Patient has been identified by name and date of : Yes Patient phones for refill(s): Requested Prescriptions Pending Prescriptions Disp Refills HYDROcodone-acetaminophen (NORCO) 5-325 mg per tablet 15 tablet 0 Sig: Take 1 tablet by mouth every 8 hours as needed for pain for up to 5 days. Date of last office visit in primary care: LIDIA 01/15/2023 with [facility] Appointment scheduled 03/26 with LT Last 2 Encounter Wt Readings: Date: Wt: 01/25/2023 103 kg (227 lb) 01/15/2023 105.2 kg (232 lb) Please advise. Thank you. ANGEL Marc documented in this encounterK[facility]04-27-2023 Miscellaneous Notes* Telephone Encounter - Kristen Celeste Bronson LPN - 01/28/2023 7:53 AM EDT Records show valid rx at the pharmacy for medication Hydrochlorothiazide. Kristen Bronson LPN Patient has been identified by name and date of : Yes, Provider Dr. Adams Date 01/28/23 Time7:55 am Patient phones for refill(s): Requested Prescriptions Pending Prescriptions Disp Refills HYDROcodone-acetaminophen (NORCO) 5-325 mg per tablet 15 tablet 0 Sig: Take 1 tablet by mouth every 8 hours as needed for pain for up to 5 days. Refused Prescriptions Disp Refills hydroCHLOROthiazide 50 mg tablet 30 tablet 2 Sig: Take 1 tablet by mouth once daily. Date of last office visit in primary care: 01/15/23 next apt 03/16/23 Last 2 Encounter Wt Readings: Date: Wt: 01/25/2023 103 kg (227 lb) 01/15/2023 105.2 kg (232 lb) Previous labs/tests for medication: Not applicable Thank you. Kristen Bronson LPN documented in this encounterK[facility]04-24-2023 Miscellaneous Notes* Telephone Encounter - Brooke Sanchez RN - 01/25/2023 2:06 PM EDT Called pt x2 today to switch medication to Trulicity, no answer both times. Unable to leave a voicemail as the mailbox is full and cannot accept messages. * Telephone Encounter - Jerrica Duenas APRN.ADVISORY SOFTWARE ENGINEER - 01/23/2023 7:22 PM EDT Please inform patient of below insurance decision. I would recommend TRULICITY in this case. Let me know if she is willing to trial this for at least 3 months, then it sounds as if insurance may approve mounjaro. * Telephone Encounter - Cole Bower APRN.CNP - 01/22/2023 2:00 PM EDT Tova, please see prior auth outcome below. * Telephone Encounter - Maylin Delaney LPN - 01/22/2023 1:39 PM EDT per printed denial. Pt to have at least 120 day of therapy with 3 formaulary medicines Byetta 5mcg and 10 mcg,victoza 18mg/3ml pen or trulicity 0.75,1.5 3mg and 4.5 which include but notlimited to farxiga 5 mg and 10 mg, invokana 100 mg and 300 mg, victoza 18 mg/3ml pen, and pqbutgpgv17 mg and 25 mg * Telephone Encounter - Maylin Delaney LPN - 01/22/2023 1:33 PM EDT Samantha Romero ([employer]: [id number]) - [id number] Mounjaro 10MG/0.5ML pen-injectors Outcome: Denied * Telephone Encounter - Maylin Delaney LPN - 01/19/2023 11:33 AM EDT Samantha Romero ([employer]: [id number]) - [id number] Mounjaro 10MG/0.5ML pen-injectors Status: Sent to Plan Created: January 15, 2023 Sent: January 19, 2023 documented in this encounterK[facility]04-24-2023 Instructions* Patient Instructions* Ramesh Brewster MD - 01/25/2023 10:21 AM EDT We are going to schedule a follow up echocardiogram in March-April Continue low salt diet 2000 meq per day documented in this encounterK[facility]04-24-2023 History of Present illness Narrative* Ramesh Brewster MD - 01/25/2023 10:00 AM EDT Images from the original note were not included. [facility] Cardiology ([facility]) [address] [id number] OUTPATIENT VISIT DATE 01/20/2023 PRIMARY CARE PHYSICIAN: Sarina Adams [address] [place] [address] REFERRING PHYSICIAN: Dr. Adams CHIEF COMPLAINT: Pericardial effusion HISTORY OF PRESENT ILLNESS: Ms. Romero is a 57 year old with extensive medical history including diabetes (insulin requiring), obesity, hypertension, dyslipidemia, chronic hypoxic respiratory failure requiring 2 L of nasal oxygen who is referred for evaluation of pericardial effusion. She has shortness of breath on minimal exertion which is a chronic problem. She has noticed no recent worsening of her symptoms. She denies symptoms of lower extremity edema. She has not had symptoms consistent with PND or orthopnea. She denies symptoms of chest pain or pressure. She has not had palpitations, lightheadedness, dizziness, orsyncope. PAST MEDICAL HISTORY Diagnosis Date Chronic hypoxemic respiratory failure (HCC) COVID-19 07/06/2021 HTN (hypertension) Hyperlipidemia 04/05/2014 Hypothyroid 04/19/2014 Kidney stone on left side 04/12/2014 Myasthenia gravis (HCC) OA (osteoarthritis) of hip, bilateral 04/04/2014 Type II or unspecified type diabetes mellitus without mention of complication, uncontrolled 04/05/2014 PAST SURGICAL HISTORY Procedure Laterality Date ESWL 04/25/14 kidney stones ESWL 05/16/14 kidney stones. PAST SURGICAL HISTORY OF c-sections x 2 PAST SURGICAL HISTORY OF appendectomy PAST SURGICAL HISTORY OF tubal ligation REMV CATARACT EXTRACAP,INSERT LENS Left 06/12/2021 Monofocal IOL 17.5 D XCAPSL CTRC VL INSJ IO LENS PROSTH W/O ECP Right 05/29/2021 SOCIAL HISTORY Social History Tobacco Use Smoking status: Former Packs/day: 1.00 Years: 30.00 Pack years: 30.00 Types: Cigarettes Quit date: 11/04/2013 Years since quittin.2 Smokeless tobacco: Never Vaping Use Vaping Use: Never used Substance Use Topics Alcohol use: Yes Comment: wine cool every once in a while Drug use: No FAMILY HISTORY Problem Relation Age of Onset Diabetes Mother Cervical Cancer Sister Diabetes Brother Cancer Maternal Grandmother Stomach CA Breast Cancer Maternal Aunt 50's ALLERGIES: ALLERGIES Allergen Reactions Metformin Diarrhea Diarrhea every time takes, even with ER dose Oxycodone GI Upset Percocet [Oxycodone* GI Upset and off balance MEDICATIONS: HYDROcodone-acetaminophen (NORCO) 5-325 mg per tablet^Take 1 tablet by mouth every 8 hours as needed for pain for up to 5 days.^Disp: 15 tablet^Rfl: 0 hydroCHLOROthiazide 50 mg tablet^Take 1 tablet by mouth once daily.^Disp: 30 tablet^Rfl: 2 insulin degludec (TRESIBA FLEXTOUCH U-100) 100 unit/mL (3 mL) injection pen^Inject 62 Units subcutaneously daily at bedtime.^Disp: 63 mL^Rfl: 3 hydrocortisone 2.5 % cream^Apply 1 application to affected area twice daily. Location: hands and chest^Disp: 20 g^Rfl: 0 hydrOXYzine HCl (ATARAX) 25 mg tablet^Take 1-2 tablets by mouth at bedtime as needed.^Disp: 30 tablet^Rfl: 3 levothyroxine (SYNTHROID) 150 mcg tablet^Take 1 tablet by mouth daily before breakfast.^Disp: 30 tablet^Rfl: 11 blood sugar diagnostic (BLOOD GLUCOSE TEST) test strip^Test blood sugar(s) 4 times daily. Dx: Type 2 DM - Controlled E11.9 Insulin: Yes^Disp: 200 Strip^Rfl: 11 Lancets lancets^Test blood sugar(s) 4 times daily. Dx: E11.9 Insulin: Yes^Disp: 200 Each^Rfl: 11 empagliflozin (JARDIANCE) 25 mg tablet^Take 1 tablet by mouth daily with breakfast.^Disp: 90 tablet^Rfl: 3 Fenofibrate (LOFIBRA) 160 mg tablet^Take 1 tablet by mouth once daily.^Disp: 30 tablet^Rfl: 11 rosuvastatin (CRESTOR) 10 mg tablet^Take 1 tablet by mouth daily at bedtime.^Disp: 30 tablet^Rfl: 11 clotrimazole-betamethasone (LOTRISONE) cream^Apply 1 application to affected area twice daily. X 2 weeks.^Disp: 45 g^Rfl: 0 fluticasone (FLONASE) 50 mcg/actuation nasal spray^Use 1-2 Sprays in each nostril once daily as needed.^Disp: 1 Each^Rfl: 11 meloxicam (MOBIC) 15 mg tablet^Take 1 tablet by mouth once daily as needed for pain. With food.^Disp: 30 tablet^Rfl: 1 flash glucose sensor (FREESTYLE TAYLOR 14 DAY SENSOR) kit^Use to check blood sugar 4 times daily. Please give 2 sensors per refill^Disp: 2 Kit^Rfl: 5 gabapentin (NEURONTIN) 600 mg tablet^Take 1 tablet by mouth twice daily for 90 days.^Disp: 60 tablet^Rfl: 2 blood sugar diagnostic (FREESTYLE LITE STRIPS) test strip^Test blood sugar(s) 4 times daily. Dx: Other DM Code E11.40 Insulin: Yes^Disp: 50 Strip^Rfl: 3 insulin aspart U-100 (NOVOLOG FLEXPEN U-100 INSULIN) 100 unit/mL (3 mL)^Inject 20 units with meals three times daily PLUS sliding scale SS#2 as based on a pre meal blood sugar. ~80 units daily^Disp: 15 Each^Rfl: 3 Insulin [place], Disposable, (BD ULTRAFINE III MINI PEN) 31 gauge x 12/17^inject 1 subcutaneously four times a day^Disp: 200 Each^Rfl: 3 dicyclomine (BENTYL) 10 mg capsule^Take 1 capsule by mouth before meals and at bedtime. for abdominal pain^Disp: 120 capsule^Rfl: 5 pyridostigmine (MESTINON) 60 mg tablet^Take 1 tablet by mouth three times daily.^Disp: 90 tablet^Rfl: 11 (Patient taking differently: Take 60 mg by mouth three times daily. Patient states she does not take it when she leaves the house due to side effects.) Blood-Glucose Meter monitoring kit^Check sugars daily and as needed (Freestyle Lite is what she hashad)^Disp: 1 Each^Rfl: 0 lisinopril 2.5 mg tablet^Take 1 tablet by mouth once daily.^Disp: 90 tablet^Rfl: 3 Vitamin E, dl, acetate, (VITAMIN E) 400 unit capsule^Take 400 Units by mouth once daily.^Disp: ^Rfl: omega-3 fatty acids (FISH OIL CONCENTRATE ORAL)^Take by mouth.^Disp: ^Rfl: Miscellaneous Medical Supply (BLOOD PRESSURE CUFF)^1 Each as needed. Blood pressure Monitor and Cuff, use as directed. Dx: I10 Hypertension^Disp: 1 Each^Rfl: 0 flash glucose scanning reader (HeyLets TAYLOR 14 DAY READER)^Use to check blood sugar 4 times daily^Disp: 1 Each^Rfl: 0 estradiol (ESTRACE) 0.01 % (0.1 mg/gram) vaginal cream^Use 3 g vaginally two times a week.^Disp: 42.5 g^Rfl: 6 tirzepatide (MOUNJARO) 10 mg/0.5 mL pen injector^Inject 10 mg subcutaneously one time a week.^Disp:4 Each^Rfl: 11 Humphrey-3 Fatty Acids-Vitamin E 1,000 mg cap^Take 1 capsule by mouth twice daily. ^Disp: ^Rfl: (Patient not taking: Reported on 01/25/2023) REVIEW OF SYSTEMS: Review of Systems Constitutional: Negative for chills, fever, malaise/fatigue and weight loss. HENT: Negative for hearing loss and sore throat. Eyes: Negative for blurred vision and double vision. Respiratory: Negative. Cardiovascular: Negative. Genitourinary: Negative for dysuria, frequency, hematuria and urgency. Musculoskeletal: Negative. Skin: Negative. Neurological: Negative for dizziness, seizures, loss of consciousness, weakness and headaches. Endo/Heme/Allergies: Negative for environmental allergies. Does not bruise/bleed easily. Psychiatric/Behavioral: Negative for depression. PHYSICAL EXAMINATION: BP 114/64 Pulse 72 Ht 5' 4 (1.63m) Wt 227 lb (103.0kg) SpO2 91[On 2L O2]% LMP 04/27/2016 BMI 38.95 kg/(m^2). General: Obese pleasant woman sitting comfortable no apparent distress she is alert and oriented x3 HEENT: Carotid upstrokes are brisk bilateral without bruits. No JVD appreciated but limited examination due to body habitus Pulmonary: Lungs are clear no rales, wheezes, rhonchi Cardiovascular: Normal S1, S2 with regular rate and rhythm. No S4 appreciated. No other murmurs rubs or gallops Extremities: Warm, well-perfused, no lower extremity edema. 2+ distal pulses CARDIOVASCULAR MEDICINE TESTING: Echocardiogram 12/29/2022: - Technically difficult exam due to body habitus. - Exam indication: Cardiac murmur - The left ventricle is small. Left ventricular systolic function is normal. EF = 55 5% (visual est.) Grade I left ventricular diastolic dysfunction. - The right ventricle is normal in size. Right ventricular systolic function is normal. - There is a small to moderate circumferential pericardial effusion without tamponade physiology. - No subcostal views. - The patient has not had a prior CC echocardiographic exam for comparison. CT Chest 07/17/2022: Heart, pericardium, and thoracic vessels: The thoracic aorta and main pulmonary artery are normal in caliber. The cardiac chambers are normal in size. No coronary artery atherosclerotic calcifications are noted, although the study is not optimized for coronary assessment. Small amount of pericardial fluid IMPRESSION: Ms. Romero is a 57 year old woman with multiple medical problems and risk factors for coronary disease who presents for evaluation of small to moderate mostly posterior lateral pericardial effusion. PLAN AND RECOMMENDATIONS: 1. Screening for ischemic heart disease - ICD9: V81.0, ICD10: Z13.6 (primary diagnosis) 2. Pericardial effusion - ICD9: 423.9, ICD10: I31.39 Patient recently seen at the [place] emergency room at which time her BNP was 17 mg/dL. She has nothad symptoms concerning for congestive heart failure. I reviewed her echocardiographic images. She has a small posterior lateral effusion. I recommended follow-up echocardiogram in 3 months. Etiologyof the effusion is unknown but unlikely related to diastolic congestive heart failure based on her recent emergency room assessment and low BNP - ECHO 3. Essential hypertension - ICD9: 401.9, ICD10: I10 Adequate control on current regimen. 4. Mixed hyperlipidemia - ICD9: 272.2, ICD10: E78.2 Fasting blood work from December 2021 was reviewed. Triglycerides 358 mg/dL. LDL 61 mg/dL. 5. Post-COVID chronic dyspnea - ICD9: 786.09, 139.8, ICD10: R06.09, U09.9 6. Obesity, Class II, BMI 35-39.9 - ICD9: 278.00, ICD10: E66.9 Ramesh Brewster MD documented in this encounterK[facility]04-21-2023 Miscellaneous Notes* Telephone Encounter - ANGEL Marc - 01/22/2023 12:36 PM EDT TC to patient who verbalizes understanding of providers message and has no further questions at this time. ANGEL Marc * Telephone Encounter - Cole Bower APRN.CNP - 01/22/2023 10:42 AM EDT Please let patient know script sent PDMP website checked and validated. All prescriptions have been APPROPRIATELY filled. No suspiciousactivity was identified. 01/22/2023 by Cole Bower APRN.KENDAL * Telephone Encounter - Nida Hamilton LPN - 01/21/2023 11:22 AM EDT Patient calling said she was given Percocet rx for her back pain, the medication is making her feeloff balance and nauseated. She is eating before she takes the medication. Patient said CULTURIST said she could change the rx to Vicodin if these bothered her. Patient said [facility]. Aware CULTURIST os out of the office on . Please advise documented in this encounterKettering [facility]04-17-2023 Miscellaneous Notes* Telephone Encounter - Carolina Trevino RN - 01/18/2023 4:47 PM EDT Spoke with Dr. Conde in office today, Ok to double book pt with Dr. Conde or Dr. Brewster in the next couple to weeks to follow up. Reviewed echo images, not urgent but needs follow up. Call to pt to schedule. Scheduled 01/[address] Brewster. Carolina Trevino RN * Telephone Encounter - Radha De Dios RN - 01/15/2023 3:36 PM EDT Pt has consult on 06/28/[address] Brewster. Radha De Dios RN * Telephone Encounter - Cole Bower APRN.CNP - 01/15/2023 3:09 PM EDT Patient recently had an echo on 12/29/2022 for new murmur, increased weight gain, swelling. Echo with the following impression: Impression CONCLUSIONS: - Technically difficult exam due to body habitus. - Exam indication: Cardiac murmur - The left ventricle is small. Left ventricular systolic function is normal. EF = 55 5% (visual est.) Grade I left ventricular diastolic dysfunction. - The right ventricle is normal in size. Right ventricular systolic function is normal. - There is a small to moderate circumferential pericardial effusion without tamponade physiology. - No subcostal views. - The patient has not had a prior CC echocardiographic exam for comparison. She was then seen at an outside ER, chest xray with them was stable, discharged home. Follow up today. I ordered a repeat ECHO, she has had her HCTZ increased but today clinically is still having some increased swelling, feeling fatigued however bp is 100/54 today. I ordered a CBC, CMP, TSH, SED and CRP. She is not scheduled with [facility] cardiology until June as a new patient. I did an e-consult since I am a little concerned about her waiting that long and they recommended pericardial clinic eval but I do not think patient is willing to travel. Any other suggestions for current management or would you like to move up her new patient appointment? Cole Bower APRN.KENDAL documented in this encounterK[facility]04-14-2023 History of Present illness Narrative* Cole Bower APRN.KENDAL - 01/15/2023 3:29 PM EDT Thanks for the info Winnie! * Yesi Awad MD - 01/15/2023 3:00 PM EDT There is a small pericardial effusion new since CT of 2020. Recommend having patient evaluated in pericardial clinic. Yesi Awad MD * Cole Bower APRN.KENDAL - 01/15/2023 2:13 PM EDT SUBJECTIVE Samantha Romero is a 57 year old female here today for a check up on her medical problems. Chief Complaint Patient presents with: Recheck: noted swelling in lower legs HPI Samantha Romero is a 57 year old female who presents today for follow up on cardiac murmur, weight gain. Recent ECHO with EF 55%, small to moderate pericardial effusion without tamponade. Was seen in [facility], discharged home. Increased HCTZ. Referred to cardiology. Appointment in June. Swelling in feet/legs still but weight is stable. Having some chest tightness, not more short of breath than normal for her, on 2 l/m of o2, has not had to increase this. BP today 100/54. She is having a lot of lowback pain. Diabetes is still not as controlled as she would like. Endocrine would like her to continue on mounjaro. Her medications were reviewed today and her list is now up to date. Medications Current Outpatient Medications Medication Sig hydroCHLOROthiazide 50 mg tablet Take 1 tablet by mouth once daily. insulin degludec (TRESIBA FLEXTOUCH U-100) 100 unit/mL (3 mL) injection pen Inject 62 Units subcutaneously daily at bedtime. hydrocortisone 2.5 % cream Apply 1 application to affected area twice daily. Location: hands and chest hydrOXYzine HCl (ATARAX) 25 mg tablet Take 1-2 tablets by mouth at bedtime as needed. levothyroxine (SYNTHROID) 150 mcg tablet Take 1 tablet by mouth daily before breakfast. empagliflozin (JARDIANCE) 25 mg tablet Take 1 tablet by mouth daily with breakfast. Fenofibrate (LOFIBRA) 160 mg tablet Take 1 tablet by mouth once daily. rosuvastatin (CRESTOR) 10 mg tablet Take 1 tablet by mouth daily at bedtime. clotrimazole-betamethasone (LOTRISONE) cream Apply 1 application to affected area twice daily. X 2 weeks. fluticasone (FLONASE) 50 mcg/actuation nasal spray Use 1-2 Sprays in each nostril once daily as needed. meloxicam (MOBIC) 15 mg tablet Take 1 tablet by mouth once daily as needed for pain. With food. gabapentin (NEURONTIN) 600 mg tablet Take 1 tablet by mouth twice daily for 90 days. insulin aspart U-100 (NOVOLOG FLEXPEN U-100 INSULIN) 100 unit/mL (3 mL) Inject 20 units with meals three times daily PLUS sliding scale SS#2 as based on a pre meal blood sugar. ~80 units daily dicyclomine (BENTYL) 10 mg capsule Take 1 capsule by mouth before meals and at bedtime. for abdominal pain pyridostigmine (MESTINON) 60 mg tablet Take 1 tablet by mouth three times daily. (Patient taking differently: Take 60 mg by mouth three times daily. Patient states she does not take it when she leaves the house due to side effects.) lisinopril 2.5 mg tablet Take 1 tablet by mouth once daily. Vitamin E, dl, acetate, (VITAMIN E) 400 unit capsule Take 400 Units by mouth once daily. omega-3 fatty acids (FISH OIL CONCENTRATE ORAL) Take by mouth. estradiol (ESTRACE) 0.01 % (0.1 mg/gram) vaginal cream Use 3 g vaginally two times a week. oxyCODONE-acetaminophen (PERCOCET) 5-325 mg tablet Take 0.5-1 tablets by mouth every 8 hours as needed for pain for up to 5 days. tirzepatide (MOUNJARO) 10 mg/0.5 mL pen injector Inject 10 mg subcutaneously one time a week. blood sugar diagnostic (BLOOD GLUCOSE TEST) test strip Test blood sugar(s) 4 times daily. Dx: Type 2 DM - Controlled E11.9 Insulin: Yes Lancets lancets Test blood sugar(s) 4 times daily. Dx: E11.9 Insulin: Yes flash glucose sensor (FREESTYLE TAYLOR 14 DAY SENSOR) kit Use to check blood sugar 4 times daily. Please give 2 sensors per refill blood sugar diagnostic (FREESTYLE LITE STRIPS) test strip Test blood sugar(s) 4 times daily. Dx: Other DM Code E11.40 Insulin: Yes Insulin [place], Disposable, (BD ULTRAFINE III MINI PEN) 31 gauge x 3/16 inject 1 subcutaneously four times a day Blood-Glucose Meter monitoring kit Check sugars daily and as needed (Freestyle Lite is what she hashad) Miscellaneous Medical Supply (BLOOD PRESSURE CUFF) 1 Each as needed. Blood pressure Monitor and Cuff, use as directed. Dx: I10 Hypertension flash glucose scanning reader (FREESTYLE TAYLOR 14 DAY READER) Use to check blood sugar 4 times daily Humphrey-3 Fatty Acids-Vitamin E 1,000 mg cap Take 1 capsule by mouth twice daily. Current Facility-Administered Medications Medication Dose Route Frequency perflutren lipid microspheres 1.3 mL in NaCl (PF) 0.9% 10 mL injection (DEFINITY) INTRAVENOUS DIRECTED PRN sodium chloride 0.9 % (flush) 10 mL (BD POSIFLUSH) 10 mL INTRAVENOUS DIRECTED PRN sodium chloride 0.9 % (flush) 10 mL (BD POSIFLUSH) 10 mL INTRAVENOUS DIRECTED PRN ALLERGIES Allergen Reactions Metformin Diarrhea Diarrhea every time takes, even with ER dose Oxycodone GI Upset Percocet [Oxycodone* GI Upset and off balance ACTIVE PROBLEM LIST Hypothyroid - 04/19/2014 (A priority) Diabetic Eye Exam (Hcc) - 04/05/2014 (A priority) Hyperlipidemia - 04/05/2014 (A priority) Kidney Stone On Left Side - 04/12/2014 (C priority) Comment: Dr. Ash is her doctor. Routine Gynecological Examination - 04/04/2014 (D priority) Comment: Seeing Dr. Deluca. Obesity, Class III, BMI >= 40 - 12/18/2022 Gastroesophageal Reflux Disease - 10/19/2022 Chronic Midline Low Back Pain - 10/19/2022 Esophageal Dysphagia - 10/19/2022 Gastroesophageal Reflux Disease With Esophagitis Without Hemorrhage - 10/19/2022 Comment: Intermittent reflux Myasthenia Gravis ([facility]) - 07/30/2022 Type 2 Diabetes Mellitus With Diabetic Neuropathy, With Long-Term Current Use of Insulin ([facility]) - 07/30/2022 Bilateral Leg Edema - 07/30/2022 Comment: worse on left Dysuria - 07/30/2022 Comment: Follow up with gynecology 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 Chronic Hypoxemic Respiratory Failure (Hcc) - 12/09/2021 Pneumonia Due to Covid-19 Virus - 08/05/2021 Status Post Cataract Extraction and Insertion of Intraocular Lens of Right Eye - 06/03/2021 Combined Forms of Age-Related Cataract of Left Eye - 05/09/2021 Type 2 Diabetes Mellitus With Moderate Nonproliferative Diabetic Retinopathy With Macular Edema ([facility]) - 05/09/2021 Type 2 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 Macular Edema, Without Long-Term Current Use of Insulin ([facility]) - 05/09/2021 Uncontrolled Type 2 Diabetes With Neuropathy - 08/20/2015 Abnormally Small Mouth - 06/24/2015 Essential Hypertension - 06/24/2015 Obesity - 06/24/2015 Thrombocytopenia ([facility]) - 06/24/2015 Noncompliance - 10/17/2014 OA (osteoarthritis) of hip, bilateral - 04/04/2014 Social History Tobacco Use Smoking status: Former Packs/day: 1.00 Years: 30.00 Pack years: 30.00 Types: Cigarettes Quit date: 11/04/2013 Years since quittin.2 Smokeless tobacco: Never Vaping Use Vaping Use: Never used Substance Use Topics Alcohol use: Yes Comment: wine cool every once in a while Drug use: No Review of Systems Respiratory: Positive for chest tightness. Negative for apnea, cough, shortness of breath and wheezing. Cardiovascular: Positive for leg swelling. Negative for chest pain and palpitations. OBJECTIVE BP 100/54 Pulse 66 Wt 232 lb (105.2kg) SpO2 93% LMP 04/27/2016 Physical Exam Vitals and nursing note reviewed. Constitutional: General: She is awake. She is not in acute distress. Appearance: Normal appearance. She is well-developed and well-groomed. She is not ill-appearing, toxic-appearing or diaphoretic. HENT: Head: Normocephalic. Right Ear: External ear normal. Left Ear: External ear normal. Nose: Nose normal. Eyes: General: Vision grossly intact. Conjunctiva/sclera: Conjunctivae normal. Pupils: Pupils are equal, round, and reactive to light. Neck: Vascular: No JVD. Trachea: Trachea normal. Cardiovascular: Rate and Rhythm: Normal rate and regular rhythm. Pulses: Normal pulses. Heart sounds: Murmur heard. Pulmonary: Effort: Pulmonary effort is normal. No accessory muscle usage, prolonged expiration or respiratory distress. Breath sounds: Normal breath sounds. Musculoskeletal: Cervical back: Neck supple. Right lower leg: Edema present. Left lower leg: Edema present. Skin: General: Skin is warm and dry. Capillary Refill: Capillary refill takes less than 2 seconds. Neurological: General: No focal deficit present. Mental Status: She is alert and oriented to person, place, and time. Mental status is at baseline. Psychiatric: Attention and Perception: Attention and perception normal. Mood and Affect: Mood and affect normal. Speech: Speech normal. Behavior: Behavior normal. Behavior is cooperative. Thought Content: Thought content normal. Cognition and Memory: Cognition and memory normal. Judgment: Judgment normal. ASSESSMENT/PLAN: 1. Pericardial effusion (noninflammatory) - ICD9: 423.9, ICD10: I31.39 (primary diagnosis) Repeat ECHO, check labs today. Will do e consult with cardiology since new patient appt is not until June. - ECHO - PERFLUTREN LIPID MICROSPHERES 1.1 MG/ML INJECTION IN NS 10 ML - SODIUM CHLORIDE 0.9 % (FLUSH) INJECTION SYRINGE - CBC + DIFF - COMP METABOLIC PANEL - SED RATE WESTERGREN - C-REACTIVE PROTEIN (CRP) - TSH BLD - E-CONSULT [facility] 2. Chronic hypoxemic respiratory failure (HCC) - ICD9: 518.83, 799.02, ICD10: J96.11 - E-CONSULT [facility] CARDIOLOG[facility] 3. Chronic midline low back pain, unspecified whether sciatica present - ICD9: 724.2, 338.29, ICD10: M54.50, G89.29 Short term script for pain medication for acute on chronic back pain. Discussed options and she states she has taken Percocet before and can tolerate okay has just had GI upset and makes her tired, she is asking that we try this specifically since it has helped pain in the past. PDMP website checked and validated. All prescriptions have been APPROPRIATELY filled. No suspiciousactivity was identified. 01/15/2023 by Cole Bower APRN.ADVISORY SOFTWARE ENGINEER - OXYCODONE-ACETAMINOPHEN 5 MG-325 MG TABLET 4. 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) - ICD9: 250.50, 362.05, 362.07, ICD10: E11.3319 - E-CONSULT [facility] CARDIOLOG[facility] Portions of this note have been entered by ancillary staff. I have reviewed and when necessary edited, so that they are an adequate record of my encounter with this patient Please note that parts of this document were created using voice recognition software and therefore may contain grammatical errors. Patient verbalizes understanding of instructions from today's visit and in agreement with treatmentplan. Questions answered. Agrees to call the office if questions, concerns of issues with acute symptoms not improving or if they worsen. Medical Decision Making: Data: Unique test(s) ordered: 3+ Risk: Moderate: Drug management Medical Decision Making Level: 4 - Moderate Return if symptoms worsen or fail to improve, for follow up we will do econsult with cardiology andcall with update, decide on follow up from there.. Cole Bower APRN-KENDAL documented in this encounterK[facility]04-10-2023 Miscellaneous Notes* Telephone Encounter - Rosa Elena Deluca LPN - 01/11/2023 12:43 PM EDT PATIENT NOTIFIED OF SAME. * Telephone Encounter - Rosa Elena Deluca LPN - 01/06/2023 2:23 PM EDT Attempted to reach patient with no answer and unable to leave a message due to mailbox is full. * Telephone Encounter - Cole Bower APRN.CNP - 01/06/2023 2:02 PM EDT Please let her know to increase current HCTZ from 25 mg to 50 mg daily, new script sent. * Telephone Encounter - Alena Napier LPN - 01/06/2023 10:57 AM EDT Patient calling, states that she went to [facility] ER yesterday and they said there was a small amount offluid around her heart. They recommended PCP change her water pill. Patient states she has an appt on 01/15 already scheduled and would like to keep appt as is but is asking if medication could be ordered before the appt. Please advise. documented in this encounterK[facility]03-27-2023 Miscellaneous Notes* Telephone Encounter - Gavi Thompson MA - 12/28/2022 10:22 AM EDT Patient has been identified by name and date of : Yes Requested Prescriptions Pending Prescriptions Disp Refills insulin degludec (TRESIBA FLEXTOUCH U-100) 100 unit/mL (3 mL) injection pen 60 mL 1 Sig: Inject 62 Units subcutaneously daily at bedtime. RX INSTRUCTIONS: Patient electronically requested- patient will receive notification electronically. Gavi Thompson MA LIDIA:10/21/22 No Future OV documented in this encounterKet[facility]03-24-2023 Miscellaneous Notes* Telephone Encounter - Ruby Spring LPN - 12/25/2022 4:44 PM EDT Patient has been identified by name and date of : No Patient phones for refill(s): Requested Prescriptions Pending Prescriptions Disp Refills rosuvastatin (CRESTOR) 10 mg tablet 30 tablet 11 Sig: Take 1 tablet by mouth daily at bedtime. Date of last office visit in primary care: 12/18/22 Last 2 Encounter Wt Readings: Date: Wt: 12/18/2022 105.9 kg (233 lb 6.4 oz) 10/21/2022 101.2 kg (223 lb) Previous labs/tests for medication: Cholesterol: HDL Cholesterol (mg/dL) Date Value 01/16/2021 33 HDL Cholesterol, Nonfasting (mg/dL) Date Value 12/18/2022 43 04/10/2021 34 LDL Cholesterol (mg/dL) Date Value 01/16/2021 Unable to calculate due to increased Triglycerides. See LDL-Chol, Direct. LDL Cholesterol, Nonfasting (mg/dL) Date Value 12/18/2022 61 04/10/2021 Unable to calculate due to increased Triglycerides. A Direct LDL Cholesterol measurement will not be performed. If clinically indicated, a fasting Basic Lipid Panel (LIPB) may be ordered. ALT (U/L) Date Value 12/18/2022 22 05/22/2021 23 Non HDL Cholesterol, Nonfasting (mg/dL) Date Value 12/18/2022 133 04/10/2021 156 Please advise. Thank you. Ruby Spring LPN documented in this encounterKet[facility]03-24-2023 Miscellaneous Notes* Telephone Encounter - Ruby Spring LPN - 12/25/2022 4:43 PM EDT Patient has been identified by name and date of : No Patient phones for refill(s): Requested Prescriptions Pending Prescriptions Disp Refills hydrocortisone 2.5 % cream 20 g 0 Sig: Apply 1 application to affected area twice daily. Location: hands and chest hydrOXYzine HCl (ATARAX) 25 mg tablet 30 tablet 3 Sig: Take 1-2 tablets by mouth at bedtime as needed. levothyroxine (SYNTHROID) 150 mcg tablet 30 tablet 11 Sig: Take 1 tablet by mouth daily before breakfast. blood sugar diagnostic (BLOOD GLUCOSE TEST) test strip 200 Strip 11 Sig: Test blood sugar(s) 4 times daily. Dx: Type 2 DM - Controlled E11.9 Insulin: Yes Lancets lancets 200 Each 11 Sig: Test blood sugar(s) 4 times daily. Dx: E11.9 Insulin: Yes empagliflozin (JARDIANCE) 25 mg tablet 90 tablet 3 Sig: Take 1 tablet by mouth daily with breakfast. Fenofibrate (LOFIBRA) 160 mg tablet 30 tablet 11 Sig: Take 1 tablet by mouth once daily. Date of last office visit in primary care: 12/18/22 Last 2 Encounter Wt Readings: Date: Wt: 12/18/2022 105.9 kg (233 lb 6.4 oz) 10/21/2022 101.2 kg (223 lb) Previous labs/tests for medication: Thyroid: TSH Date Value 12/18/2022 15.300 mIU/L 04/10/2021 2.340 uU/mL Diabetes: Hemoglobin A1C (%) Date Value 12/18/2022 11.7 07/07/2022 9.8 04/10/2021 8.3 10/25/2020 10.3 Hemoglobin A1C (POCT) (%) Date Value 10/21/2022 11.0 Please advise. Thank you. Ruby Spring LPN documented in this encounterKet[facility]03-24-2023 Miscellaneous Notes* Telephone Encounter - Marizol Castellano LPN - 12/25/2022 4:42 PM EDT Patient phones requesting refills as follows: Requested Prescriptions Pending Prescriptions Disp Refills clotrimazole-betamethasone (LOTRISONE) cream 45 g 0 Sig: Apply 1 application to affected area twice daily. X 2 weeks. LIDIA 12/18/22 NOV no upcoming appt noted Please review and advise. Marizol Castellano LPN documented in this encounterKettering [facility]03-17-2023 Miscellaneous Notes* Telephone Encounter - Cole Bower APRN.CNP - 12/18/2022 3:29 PM EDT Sidney Alva, refill sent! * Telephone Encounter - Nida Hamilton LPN - 12/18/2022 3:24 PM EDT Patient calling just left pharmacy and her Gabapentin 300 mg rx was cancelled, could not get refilled. Read notes in computer that her dose was increased to 600 mg twice daily at her appt today. Asked patient if she told CULTURIST that she did not have any at home, patient said no I did not tell her. Now patient needs new rx for the 600 mg Gabapentin rx sent to [facility] pharmacy. Pending rx needs completed. Please advise documented in this encounterKettering [facility]03-17-2023 History of Present illness Narrative* Cole Bower APRN.ADVISORY SOFTWARE ENGINEER - 12/18/2022 1:39 PM EDT SUBJECTIVE Samantha Romero is a 57 year old female here today for a check up on her medical problems. Chief Complaint Patient presents with: F/U 3 Month HPI Samantha Romero is a 57 year old female established patient of Dr. Adams who presents today for 3 month follow up. She was last seen 09/18/2023 for esophageal dysphagia, chronic back pain, Dm, myasthenia gravis. Since her last visit she was seen with urology, endocrine, pulmonary, ophthalmology. Overall feeling okay but feels swollen all over. Today she has concerns of weight gain, about 10 pounds from 2 months ago. On o2 at 2 l/m, maybe slight dyspnea, no chest pain or chest tightness. Feels like feet are holding water. Some back pain. No prior cardiac murmur that she knows of. Having trouble getting Mounjaro. Her medications were reviewed today and her list is now up to date. Medications Current Outpatient Medications Medication Sig meloxicam (MOBIC) 15 mg tablet Take 1 tablet by mouth once daily as needed for pain. With food. fluticasone (FLONASE) 50 mcg/actuation nasal spray Use 1-2 Sprays in each nostril once daily as needed. dicyclomine (BENTYL) 10 mg capsule Take 1 capsule by mouth before meals and at bedtime. for abdominal pain Fenofibrate (LOFIBRA) 160 mg tablet Take 1 tablet by mouth once daily. empagliflozin (JARDIANCE) 25 mg tablet Take 1 tablet by mouth daily with breakfast. blood sugar diagnostic (BLOOD GLUCOSE TEST) test strip Test blood sugar(s) 4 times daily. Dx: Type 2 DM - Controlled E11.9 Insulin: Yes rosuvastatin (CRESTOR) 10 mg tablet Take 1 tablet by mouth daily at bedtime. levothyroxine (SYNTHROID) 150 mcg tablet Take 1 tablet by mouth daily before breakfast. hydrOXYzine HCl (ATARAX) 25 mg tablet Take 1-2 tablets by mouth at bedtime as needed. lisinopril 2.5 mg tablet Take 1 tablet by mouth once daily. flash glucose sensor (FREESTYLE TAYLOR 14 DAY SENSOR) kit Use to check blood sugar 4 times daily. Please give 2 sensors per refill hydroCHLOROthiazide 25 mg tablet Take 1 tablet by mouth once daily. gabapentin (NEURONTIN) 600 mg tablet Take 1 tablet by mouth twice daily for 90 days. insulin degludec (TRESIBA FLEXTOUCH U-100) 100 unit/mL (3 mL) injection pen Inject 62 Units subcutaneously daily at bedtime. tirzepatide (MOUNJARO) 10 mg/0.5 mL pen injector Inject 10 mg subcutaneously one time a week. blood sugar diagnostic (FREESTYLE LITE STRIPS) test strip Test blood sugar(s) 4 times daily. Dx: Other DM Code E11.40 Insulin: Yes insulin aspart U-100 (NOVOLOG FLEXPEN U-100 INSULIN) 100 unit/mL (3 mL) Inject 20 units with meals three times daily PLUS sliding scale SS#2 as based on a pre meal blood sugar. ~80 units daily Insulin [place], Disposable, (BD ULTRAFINE III MINI PEN) 31 gauge x 3/16 inject 1 subcutaneously four times a day pyridostigmine (MESTINON) 60 mg tablet Take 1 tablet by mouth three times daily. (Patient taking differently: Take 60 mg by mouth three times daily. Patient states she does not take it when she leaves the house due to side effects.) Blood-Glucose Meter monitoring kit Check sugars daily and as needed (Freestyle Lite is what she hashad) Lancets lancets Test blood sugar(s) 4 times daily. Dx: E11.9 Insulin: Yes Vitamin E, dl, acetate, (VITAMIN E) 400 unit capsule Take 400 Units by mouth once daily. omega-3 fatty acids (FISH OIL CONCENTRATE ORAL) Take by mouth. Miscellaneous Medical Supply (BLOOD PRESSURE CUFF) 1 Each as needed. Blood pressure Monitor and Cuff, use as directed. Dx: I10 Hypertension flash glucose scanning reader (FREESTYLE TAYLOR 14 DAY READER) Use to check blood sugar 4 times daily hydrocortisone 2.5 % cream Apply 1 application to affected area twice daily. Location: hands and chest (Patient taking differently: Apply 1 application to affected area twice daily. Location: hands and chest Uses as needed) estradiol (ESTRACE) 0.01 % (0.1 mg/gram) vaginal cream Use 3 g vaginally two times a week. clotrimazole-betamethasone (LOTRISONE) cream Apply 1 application to affected area twice daily. X 2 weeks. Humphrey-3 Fatty Acids-Vitamin E 1,000 mg cap Take 1 capsule by mouth twice daily. Current Facility-Administered Medications Medication Dose Route Frequency perflutren lipid microspheres 1.3 mL in NaCl (PF) 0.9% 10 mL injection (DEFINITY) INTRAVENOUS DIRECTED PRN sodium chloride 0.9 % (flush) 10 mL (BD POSIFLUSH) 10 mL INTRAVENOUS DIRECTED PRN ALLERGIES Allergen Reactions Metformin Diarrhea Diarrhea every time takes, even with ER dose Oxycodone GI Upset Percocet [Oxycodone* GI Upset and off balance ACTIVE PROBLEM LIST Hypothyroid - 04/19/2014 (A priority) Diabetic Eye Exam ([facility]) - 04/05/2014 (A priority) Hyperlipidemia - 04/05/2014 (A priority) Kidney Stone On Left Side - 04/12/2014 (C priority) Comment: Dr. Ash is her doctor. Routine Gynecological Examination - 04/04/2014 (D priority) Comment: Seeing Dr. Deluca. Obesity, Class III, BMI >= 40 - 12/18/2022 Gastroesophageal Reflux Disease - 10/19/2022 Chronic Midline Low Back Pain - 10/19/2022 Esophageal Dysphagia - 10/19/2022 Gastroesophageal Reflux Disease With Esophagitis Without Hemorrhage - 10/19/2022 Comment: Intermittent reflux Myasthenia Gravis ([facility]) - 07/30/2022 Type 2 Diabetes Mellitus With Diabetic Neuropathy, With Long-Term Current Use of Insulin ([facility]) - 07/30/2022 Bilateral Leg Edema - 07/30/2022 Comment: worse on left Dysuria - 07/30/2022 Comment: Follow up with gynecology 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 Chronic Hypoxemic Respiratory Failure ([facility]) - 12/09/2021 Pneumonia Due to Covid-19 Virus - 08/05/2021 Status Post Cataract Extraction and Insertion of Intraocular Lens of Right Eye - 06/03/2021 Combined Forms of Age-Related Cataract of Left Eye - 05/09/2021 Type 2 Diabetes Mellitus With Moderate Nonproliferative Diabetic Retinopathy With Macular Edema ([facility]) - 05/09/2021 Type 2 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 Macular Edema, Without Long-Term Current Use of Insulin ([facility]) - 05/09/2021 Uncontrolled Type 2 Diabetes With Neuropathy - 08/20/2015 Abnormally Small Mouth - 06/24/2015 Essential Hypertension - 06/24/2015 Obesity - 06/24/2015 Thrombocytopenia (Hcc) - 06/24/2015 Noncompliance - 10/17/2014 OA (osteoarthritis) of hip, bilateral - 04/04/2014 Social History Tobacco Use Smoking status: Former Packs/day: 1.00 Years: 30.00 Pack years: 30.00 Types: Cigarettes Quit date: 11/04/2013 Years since quittin.1 Smokeless tobacco: Never Vaping Use Vaping Use: Never used Substance Use Topics Alcohol use: Yes Comment: wine cool every once in a while Drug use: No Review of Systems Constitutional: Positive for fatigue. Negative for chills, diaphoresis and fever. Respiratory: Positive for shortness of breath. Negative for apnea, cough, choking, chest tightness,wheezing and stridor. Cardiovascular: Positive for leg swelling. Negative for chest pain and palpitations. Musculoskeletal: Positive for back pain. OBJECTIVE BP 126/74 Pulse 81 Resp 18 Wt 233 lb 6.4 oz (105.9kg) SpO2 93[2LPM]% LMP 04/27/2016 Physical Exam Vitals and nursing note reviewed. Constitutional: General: She is awake. She is not in acute distress. Appearance: Normal appearance. She is well-developed and well-groomed. She is obese. She is not ill-appearing, toxic-appearing or diaphoretic. HENT: Head: Normocephalic. Right Ear: External ear normal. Left Ear: External ear normal. Nose: Nose normal. Eyes: General: Vision grossly intact. Conjunctiva/sclera: Conjunctivae normal. Pupils: Pupils are equal, round, and reactive to light. Neck: Vascular: No JVD. Trachea: Trachea normal. Cardiovascular: Rate and Rhythm: Normal rate and regular rhythm. Pulses: Normal pulses. Heart sounds: Murmur heard. Systolic murmur is present with a grade of 3/6. Pulmonary: Effort: Pulmonary effort is normal. No accessory muscle usage, prolonged expiration or respiratory distress. Breath sounds: Normal breath sounds. Musculoskeletal: Cervical back: Neck supple. Right lower leg: Edema present. Left lower leg: Edema present. Skin: General: Skin is warm and dry. Capillary Refill: Capillary refill takes less than 2 seconds. Neurological: General: No focal deficit present. Mental Status: She is alert and oriented to person, place, and time. Mental status is at baseline. Psychiatric: Attention and Perception: Attention and perception normal. Mood and Affect: Mood and affect normal. Speech: Speech normal. Behavior: Behavior normal. Behavior is cooperative. Thought Content: Thought content normal. Cognition and Memory: Cognition and memory normal. Judgment: Judgment normal. ASSESSMENT/PLAN: 1. Cardiac murmur - ICD9: 785.2, ICD10: R01.1 (primary diagnosis) She does not recall having been told in the past that she has a murmur. Will check an echo especially with her edema and weight gain. Check labs today. No prior echo available to review. 2. Generalized edema - ICD9: 782.3, ICD10: R60.1 See above. Increase HCTZ. - HYDROCHLOROTHIAZIDE 25 MG TABLET - ECHO - PERFLUTREN LIPID MICROSPHERES 1.1 MG/ML INJECTION IN NS 10 ML - SODIUM CHLORIDE 0.9 % (FLUSH) INJECTION SYRINGE - CBC - COMP METABOLIC PANEL - NT PRO BNP 3. Chronic midline low back pain, unspecified whether sciatica present - ICD9: 724.2, 338.29, ICD10: M54.50, G89.29 Can increase gabapentin, encouraged PT, she wants to wait for this. - GABAPENTIN 600 MG TABLET 4. Type 2 diabetes mellitus with diabetic neuropathy, with long-term current use of insulin (HCC) -ICD9: 250.60, 357.2, V58.67, ICD10: E11.40, Z79.4 Trouble getting GLP1's, will contact endocrine. 5. Obesity, Class III, BMI >= 40 - ICD9: 278.01, ICD10: E66.01 Unplanned weight gain. 6. Encounter for therapeutic drug monitoring - ICD9: V58.83, ICD10: Z51.81 - CBC - COMP METABOLIC PANEL Portions of this note have been entered by ancillary staff. I have reviewed and when necessary edited, so that they are an adequate record of my encounter with this patient Please note that parts of this document were created using voice recognition software and therefore may contain grammatical errors. Patient verbalizes understanding of instructions from today's visit and in agreement with treatmentplan. Questions answered. Agrees to call the office if questions, concerns of issues with acute symptoms not improving or if they worsen. See diagnoses and orders for additional plan(s). Allergies and medications were reviewed, list was updated, and refills given if needed. Past medical, surgical, social, and family history reviewed and updated as appropriate. Encouraged proper diet & exercise as well as compliance with taking medications. Age- appropriate health preventative measures were discussed. Return in about 4 weeks (around 01/15/2023). Cole Bower APRN-KENDAL documented in this encounterK[facility]-17-2023 Miscellaneous Notes* Telephone Encounter - Katherin Saeed - 12/18/2022 10:18 AM EDT Patient has been identified by name and date of : Yes Requested Prescriptions Pending Prescriptions Disp Refills flash glucose sensor (FREESTYLE TAYLOR 14 DAY SENSOR) kit 2 Kit 5 Sig: Use to check blood sugar 4 times daily. Please give 2 sensors per refill RX INSTRUCTIONS: Patient aware RX will be sent to pharmacy. No need to notify patient. [facility] documented in this encounterK[facility]03-13-2023 History of Present illness Narrative* Ericka Zamora, OD - 12/14/2022 2:59 PM EDT 1. 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 Educated patient to continue care with primary care doctor and/or turkey cleaner to maintain optimum levels as they are important to avoid ocular complications. Encouraged patient to call the office immediately with any changes to vision or visual concerns. Advised to not wait until the next scheduled exam. Stable CME both eyes (non central involving) -will continue to observe -will refer to Yuan with any worsening cme or neovascularization 2. Pseudophakia of both eyes Doing well-observe 3. Ptosis of right eyelid 4. Myasthenia gravis (HCC) Ptosis improved since on Mestinon for Myasthenia treatment -continue to observe 5. Dry eye syndrome of bilateral lacrimal glands Urged patient to use Systane 3-4 times daily and gel nightly (if able to get) Follow-up in 3 months for dilation/ mac OCT or sooner with any changes in vision Ericka Zamora, OD December 14, 2022 2:59 PM documented in this encounterK[facility]03-13-2023 Instructions* Patient Instructions* Ericka Zamora, OD - 12/14/2022 2:54 PM EDT Use Systane drops 3-4 times daily Use Systane, Refresh or Blink gel nightly before bed in both eyes documented in this encounterKet[facility]02-15-2023 Miscellaneous Notes* Telephone Encounter - Maylin Delaney LPN - 11/18/2022 9:40 AM EST Rec'd approved from [facility] from 11/10/22 to 11/09/2023. Pt and pharmacy notified. * Telephone Encounter - Denise Alvarado APRN.CNS - 11/16/2022 4:14 PM EST Was this approved * Telephone Encounter - Rosana Ascencio Ma - 11/10/2022 12:52 PM EST Prior Authorization has been completed online at [employer] for Tresiba, will await response. FONTANEZ- [id number] Please keep encounter open until final decision has been received and documented from insurance company. Rosana Ascencio MA * Telephone Encounter - Nadine Watt Pss - 11/10/2022 9:31 AM EST Patient said pharmacy told her Tresiba requires a prior auth. Did not have the PA phone number. Also said she was recently switched from Trulicity to Mounjaro. She cannot find Mounjaro anywhere. Would like direction from Dr. Adams. Please advise at [phone]. documented in this encounterK[facility]02-07-2023 Miscellaneous Notes* Telephone Encounter - Maylin Delaney LPN - 11/10/2022 3:57 PM EST Pt is asking for both rx. This is a new pharmacy. PA completed for the tresiba via [employer]mymed. PA pending review. Do you want both rx sent? Last seen endo 10/21/22. * Telephone Encounter - Sophie Wolfe - 11/10/2022 1:13 PM EST Patient has been identified by name and date of : Yes Requested Prescriptions Pending Prescriptions Disp Refills tirzepatide (MOUNJARO) 10 mg/0.5 mL pen injector 4 Each 11 Sig: Inject 10 mg subcutaneously one time a week. insulin degludec (TRESIBA FLEXTOUCH U-100) 100 unit/mL (3 mL) injection pen 45 mL 1 Sig: Inject 62 Units subcutaneously daily at bedtime. RX INSTRUCTIONS: Patient aware RX will be sent to pharmacy. No need to notify patient. Sophie Wolfe documented in this encounterK[facility]01-23-2023 History of Present illness Narrative* Brooke Be PA-C - 10/26/2022 2:12 PM EST Patient: Samantha Romero PCP: Sarina Adams MD CC: Post Covid chronic dyspnea HPI: Samantha Romero 57 year old female former smoker, 30 pack years (quitting 2013) with PMH significant for HTN, DM, hypothyroidism, HTN, myasthenia gravis, and history of Covid pna 07/2021. Required HFNC, dex/remdesivir/baricitinib and 4L supplemental oxygen at discharge. Reports chest tightness when not on supplemental oxygen. Lasts a couple of minutes. Currently wearing 4L at night and 2 L supplemental oxygen with exertion. DME: [employer] No cough. Denies dyspnea. That's a lot better. Reports epistaxis and nasal sores with oxygen use despite humidification. PAST MEDICAL HISTORY Diagnosis Date Chronic hypoxemic respiratory failure (HCC) COVID-19 07/06/2021 HTN (hypertension) Hyperlipidemia 04/05/2014 Hypothyroid 04/19/2014 Kidney stone on left side 04/12/2014 Myasthenia gravis (HCC) OA (osteoarthritis) of hip, bilateral 04/04/2014 Type II or unspecified type diabetes mellitus without mention of complication, uncontrolled 04/05/2014 Allergies: Metformin Diarrhea Comment:Diarrhea every time takes, even with ER dose Oxycodone GI Upset Percocet [Oxycodone* GI Upset Comment:and off balance tirzepatide (MOUNJARO) 10 mg/0.5 mL pen injector Inject 10 mg subcutaneously one time a week. insulin degludec (TRESIBA FLEXTOUCH U-100) 100 unit/mL (3 mL) injection pen Inject 62 Units subcutaneously daily at bedtime. meloxicam (MOBIC) 15 mg tablet Take 1 tablet by mouth once daily as needed for pain. With food. blood sugar diagnostic (FREESTYLE LITE STRIPS) test strip Test blood sugar(s) 4 times daily. Dx: Other DM Code E11.40 Insulin: Yes insulin aspart U-100 (NOVOLOG FLEXPEN U-100 INSULIN) 100 unit/mL (3 mL) Inject 20 units with meals three times daily PLUS sliding scale SS#2 as based on a pre meal blood sugar. ~80 units daily fluticasone (FLONASE) 50 mcg/actuation nasal spray Use 1-2 Sprays in each nostril once daily as needed. Insulin [place], Disposable, (BD ULTRAFINE III MINI PEN) 31 gauge x 3/16 inject 1 subcutaneously four times a day dicyclomine (BENTYL) 10 mg capsule Take 1 capsule by mouth before meals and at bedtime. for abdominal pain gabapentin (NEURONTIN) 300 mg capsule Take 1 capsule by mouth twice daily for 180 days. Fenofibrate (LOFIBRA) 160 mg tablet Take 1 tablet by mouth once daily. empagliflozin (JARDIANCE) 25 mg tablet Take 1 tablet by mouth daily with breakfast. pyridostigmine (MESTINON) 60 mg tablet Take 1 tablet by mouth three times daily. Blood-Glucose Meter monitoring kit Check sugars daily and as needed (Freestyle Lite is what she hashad) blood sugar diagnostic (BLOOD GLUCOSE TEST) test strip Test blood sugar(s) 4 times daily. Dx: Type 2 DM - Controlled E11.9 Insulin: Yes Lancets lancets Test blood sugar(s) 4 times daily. Dx: E11.9 Insulin: Yes rosuvastatin (CRESTOR) 10 mg tablet Take 1 tablet by mouth daily at bedtime. flash glucose sensor (FREESTYLE TAYLOR 14 DAY SENSOR) kit Use to check blood sugar 4 times daily. Please give 2 sensors per refill levothyroxine (SYNTHROID) 150 mcg tablet Take 1 tablet by mouth daily before breakfast. hydrOXYzine HCl (ATARAX) 25 mg tablet Take 1-2 tablets by mouth at bedtime as needed. hydroCHLOROthiazide 12.5 mg capsule Take 1 capsule by mouth once daily. lisinopril 2.5 mg tablet Take 1 tablet by mouth once daily. Vitamin E, dl, acetate, (VITAMIN E) 400 unit capsule Take 400 Units by mouth once daily. omega-3 fatty acids (FISH OIL CONCENTRATE ORAL) Take by mouth. Miscellaneous Medical Supply (BLOOD PRESSURE CUFF) 1 Each as needed. Blood pressure Monitor and Cuff, use as directed. Dx: I10 Hypertension flash glucose scanning reader (FREESTYLE TAYLOR 14 DAY READER) Use to check blood sugar 4 times daily hydrocortisone 2.5 % cream Apply 1 application to affected area twice daily. Location: hands and chest (Patient taking differently: Apply 1 application to affected area twice daily. Location: hands and chest Uses as needed) estradiol (ESTRACE) 0.01 % (0.1 mg/gram) vaginal cream Use 3 g vaginally two times a week. clotrimazole-betamethasone (LOTRISONE) cream Apply 1 application to affected area twice daily. X 2 weeks. Humphrey-3 Fatty Acids-Vitamin E 1,000 mg cap Take 1 capsule by mouth twice daily. Social History Tobacco Use Smoking status: Former Packs/day: 1.00 Years: 30.00 Pack years: 30.00 Types: Cigarettes Quit date: 11/04/2013 Years since quittin.9 Smokeless tobacco: Never Vaping Use Vaping Use: Never used Substance Use Topics Alcohol use: Yes Comment: wine cool every once in a while Drug use: No Family History Problem Relation Age of Onset Diabetes Mother Cervical Cancer Sister Diabetes Brother Cancer Maternal Grandmother Stomach CA Breast Cancer Maternal Aunt 50's PAST SURGICAL HISTORY Procedure Laterality Date ESWL 04/25/14 kidney stones ESWL 05/16/14 kidney stones. PAST SURGICAL HISTORY OF c-sections x 2 PAST SURGICAL HISTORY OF appendectomy PAST SURGICAL HISTORY OF tubal ligation REMV CATARACT EXTRACAP,INSERT LENS Left 06/12/2021 Monofocal IOL 17.5 D XCAPSL CTRC RMVL INSJ IO LENS PROSTH W/O ECP Right 05/29/2021 I reviewed the past medical history, family history, social history and surgical history with changes noted above and updated in EMR. IMMUNIZATIONS Prevnar - xx Pneumovax - 04/19/2014 Influenza - xx COVID-19 - xx ROS: General: Generally feels good. Appetite good. Eyes, Ears, nose, throat: No post nasal drip, rhinorrhea, purulent nasal discharge. No hoarseness. Vision stable. See HPI. Cardiac: No angina, edema, orthopnea. Resp: See HPI. GI: No heartburn. Dysphagia, states food sometimes gets stuck. Musculoskeletal: No pain. Neuro: No headache, focal weakness, tremor. Skin: No rash. Otherwise negative. PHYSICAL EXAMINATION: BP 104/58 Pulse 81 Resp 16 LMP 04/27/2016 SpO2 98% O2: RA Gen: No acute distress. Cooperative with examination. HEENT: Normocephalic. Sclera, conjunctiva clear. Oral hygeine and dentition good. Resp: No stridor, accessory respiratory muscle use, supra-sternal or intercostal retractions. No wheezes, crackles. CV: Regular rythm. Heart tones normal. Radial pulses normal. Abd: Non distended. MSK: No kyphoscoliosis. Ext: Warm and well perfused. No clubbing, cyanosis, edema. Skin: No rash, ecchymoses. Neuro: Mental status normal. Affect normal. No tremor. DATA: Overnight oximetry on 2 L 10/14/2022: Total recording time 10 hours 83 minutes SPO2 less than or equal to 88% 2.7 minutes SPO2 less than or equal to 89% 4.3 minutes Lowest SPO2 83% Oximetry, 07/21/2022 O2 Device O2 Adapter NC O2 Flow SpO2% HR Activity Ft Walked (ft) Time (min) Avg Speed (MPH) R/A 95 83 Resting R/A 88 89 Walking, usual pace 450 3 1.7 NC 2 95 86 Resting NC 2 94 100 Walking, usual pace 450 3 1.7 ASSESSMENT/PLAN: 1. Post-COVID chronic dyspnea - ICD9: 786.09, 139.8, ICD10: R06.09, U09.9 (primary diagnosis) Symptomatically doing well. Obtain current oximetry with ambulation. Check nocturnal oximetry on RA. - OXIMETRY WITH AMBULATION - OXIMETRY - NOCTURNAL 2. Chronic hypoxemic respiratory failure (HCC) - ICD9: 518.83, 799.02, ICD10: J96.11 See #1. - OXIMETRY WITH AMBULATION - OXIMETRY - NOCTURNAL 3. History of COVID-19 - ICD9: V12.09, ICD10: Z86.16 4. Former cigarette smoker - ICD9: V15.82, ICD10: Z87.891 Brooke Be PA-C documented in this encounterK[facility]01-19-2023 Miscellaneous Notes* Telephone Encounter - Jaylyn Vazquez LPN - 10/22/2022 10:57 AM EST Patient understands that Mounjaro replaces Trulicity, will pickup RX. Jaylyn Vazquez LPN * Telephone Encounter - Sarina Adams MD - 10/21/2022 8:35 PM EST Note that Jerrica Duenas already sent RX for Mounjaro to replace Trulicity. Make sure patient aware of the change and new RX sent * Telephone Encounter - Tabatha Up LPN - 10/21/2022 5:17 PM EST Mari stopped by the office due to unable to have her Trulicity refilled at the pharmacy with the medication being backordered. Requesting a replacement be ordered, states only having a 1/4 pen left of the trulicity. Patient uses [facility]. Tabatha Up LPN documented in this encounterK[facility]01-18-2023 History of Present illness Narrative* Jerrica Dueans APRN.ADVISORY SOFTWARE ENGINEER - 10/21/2022 2:45 PM EST OFFICE VISIT PROGRESS NOTE CC Samantha Romero is a 56 year old female who presents today for blood sugar review, insulin dosing adjust. HPI Diagnosed with diabetes mellitus type II, ~ 2012 Last endocrine OV 06/10/2022 Has made NO changes to her diet or apply any recommendations from last OV A1C has elevated further. Never picked up Trulicity as not available, out completely for 1-2 months - did not notify this provider and/or ENDO as to inability to obtain medication. No exercise. Uses Freestyle Taylor for CGM No recent labs - in office A1C -- Component Latest Ref Rng & Units 10/21/2022 Hemoglobin A1C (POCT) 4.2 - 5.6 % 11.0 (A) Having a lot of back pain Chronic swelling/pain of the legs Breakfast; breakfast bowl (frozen meal) croissant egg/cheese or eggs/sausage - water/zero gatorade Lunch: skips Dinner: [place] OR macaroni / cheese with hamburger OR spaghetti OR goulash OR fish filets and potatowedges, eats out once in while Snacks: mozzarrella sticks OR crackers/cheese/turkey Drinks water, gatorade, sunkist/7 up zero sugar CURRENT DM MEDS TRESIBA 62 units HUMALOG 20-20-20 + SS#2 JARDIANCE 25 mg 1 tab daily TRULICITY 3 mg weekly injection SMBG Type of Monitor: Other Frequency of Monitorin times a day FREESTYLE TAYLOR - BG Values: Breakfast: 467-HI Lunch: 271-303 Dinner: 258 Bed-time: 296 Values over past week: Highest HI; Lowest 257 Hypoglycemia: no Diet: No specific diet regimen - did not make any changes to her diet Exercise: none DM REVIEW OF SYSTEMS Last Eye Exam : 06/02/2022 OPTH -- cataracts bilateral January 2022, surgery. Last Podiatry Exam: 2020 Cardiorespiratory: negative, denies chest pain, pressure Claudication: no Dyslipidemia: Yes, controlled on medication High Blood Pressure: Yes, controlled on medication CURRENT LABS Component Latest Ref Rng & Units 10/21/2022 Hemoglobin A1C (POCT) 4.2 - 5.6 % 11.0 (A) Component Latest Ref Rng & Units 03/26/2022 07/07/2022 Hemoglobin A1C 4.3 - 5.6 % 10.4 (H) 9.8 (H) Estimated Average Glucose mg/dL 252 235 TSH 0.270 - 4.200 mIU/L 0.107 (L) 0.496 Free T4 0.9 - 1.7 ng/dL 2.1 (H) 1.5 Free T3 2.3 - 4.1 pg/mL 2.9 2.5 PAST MEDICAL HISTORY Diagnosis Date Chronic hypoxemic respiratory failure (HCC) COVID-19 07/06/2021 HTN (hypertension) Hyperlipidemia 04/05/2014 Hypothyroid 04/19/2014 Kidney stone on left side 04/12/2014 Myasthenia gravis (HCC) OA (osteoarthritis) of hip, bilateral 04/04/2014 Type II or unspecified type diabetes mellitus without mention of complication, uncontrolled 04/05/2014 PAST SURGICAL HISTORY Procedure Laterality Date ESWL 04/25/14 kidney stones ESWL 05/16/14 kidney stones. PAST SURGICAL HISTORY OF c-sections x 2 PAST SURGICAL HISTORY OF appendectomy PAST SURGICAL HISTORY OF tubal ligation REMV CATARACT EXTRACAP,INSERT LENS Left 06/12/2021 Monofocal IOL 17.5 D XCAPSL CTRC RMVL INSJ IO LENS PROSTH W/O ECP Right 05/29/2021 FAMILY HISTORY Problem Relation Age of Onset Diabetes Mother Cervical Cancer Sister Diabetes Brother Cancer Maternal Grandmother Stomach CA Breast Cancer Maternal Aunt 50's Social History Tobacco Use Smoking status: Former Packs/day: 1.00 Years: 30.00 Pack years: 30.00 Types: Cigarettes Quit date: 11/04/2013 Years since quittin.9 Smokeless tobacco: Never Vaping Use Vaping Use: Never used Substance Use Topics Alcohol use: Yes Comment: wine cool every once in a while Drug use: No Current Outpatient Medications Medication Sig [START ON 10/13/2022] meloxicam (MOBIC) 15 mg tablet Take 1 tablet by mouth once daily as needed forpain. With food. blood sugar diagnostic (FREESTYLE LITE STRIPS) test strip Test blood sugar(s) 4 times daily. Dx: Other DM Code E11.40 Insulin: Yes insulin aspart U-100 (NOVOLOG FLEXPEN U-100 INSULIN) 100 unit/mL (3 mL) Inject 20 units with meals three times daily PLUS sliding scale SS#2 as based on a pre meal blood sugar. ~80 units daily fluticasone (FLONASE) 50 mcg/actuation nasal spray Use 1-2 Sprays in each nostril once daily as needed. Insulin Boerne, Disposable, (BD ULTRAFINE III MINI PEN) 31 gauge x 3/16 inject 1 subcutaneously four times a day dicyclomine (BENTYL) 10 mg capsule Take 1 capsule by mouth before meals and at bedtime. for abdominal pain gabapentin (NEURONTIN) 300 mg capsule Take 1 capsule by mouth twice daily for 180 days. Fenofibrate (LOFIBRA) 160 mg tablet Take 1 tablet by mouth once daily. dulaglutide (TRULICITY) 3 mg/0.5 mL pen injector Inject 3 mg subcutaneously one time a week. empagliflozin (JARDIANCE) 25 mg tablet Take 1 tablet by mouth daily with breakfast. pyridostigmine (MESTINON) 60 mg tablet Take 1 tablet by mouth three times daily. (Patient not taking: Reported on 09/29/2022) Blood-Glucose Meter monitoring kit Check sugars daily and as needed (Freestyle Lite is what she hashad) blood sugar diagnostic (BLOOD GLUCOSE TEST) test strip Test blood sugar(s) 4 times daily. Dx: Type 2 DM - Controlled E11.9 Insulin: Yes Lancets lancets Test blood sugar(s) 4 times daily. Dx: E11.9 Insulin: Yes rosuvastatin (CRESTOR) 10 mg tablet Take 1 tablet by mouth daily at bedtime. flash glucose sensor (FREESTYLE TAYLOR 14 DAY SENSOR) kit Use to check blood sugar 4 times daily. Please give 2 sensors per refill insulin degludec (TRESIBA FLEXTOUCH U-100) 100 unit/mL (3 mL) injection pen Inject 62 Units subcutaneously daily at bedtime. levothyroxine (SYNTHROID) 150 mcg tablet Take 1 tablet by mouth daily before breakfast. hydrOXYzine HCl (ATARAX) 25 mg tablet Take 1-2 tablets by mouth at bedtime as needed. hydroCHLOROthiazide 12.5 mg capsule Take 1 capsule by mouth once daily. lisinopril 2.5 mg tablet Take 1 tablet by mouth once daily. Vitamin E, dl, acetate, (VITAMIN E) 400 unit capsule Take 400 Units by mouth once daily. omega-3 fatty acids (FISH OIL CONCENTRATE ORAL) Take by mouth. Miscellaneous Medical Supply (BLOOD PRESSURE CUFF) 1 Each as needed. Blood pressure Monitor and Cuff, use as directed. Dx: I10 Hypertension flash glucose scanning reader (FREESTYLE TAYLOR 14 DAY READER) Use to check blood sugar 4 times daily hydrocortisone 2.5 % cream Apply 1 application to affected area twice daily. Location: hands and chest (Patient taking differently: Apply 1 application to affected area twice daily. Location: hands and chest Uses as needed) estradiol (ESTRACE) 0.01 % (0.1 mg/gram) vaginal cream Use 3 g vaginally two times a week. clotrimazole-betamethasone (LOTRISONE) cream Apply 1 application to affected area twice daily. X 2 weeks. Humphrey-3 Fatty Acids-Vitamin E 1,000 mg cap Take 1 capsule by mouth twice daily. No current facility-administered medications for this visit. ALLERGIES Allergen Reactions Metformin Diarrhea Diarrhea every time takes, even with ER dose Oxycodone GI Upset Percocet [Oxycodone* GI Upset and off balance REVIEW OF SYSTEMS - POSITIVES IN BOLD GENERAL:No weight loss, malaise or fevers HEENT:Negative for frequent or significant headaches, No changes in hearing or vision, no nose bleeds or other nasal problems NECK:Negative for lumps, goiter, pain and significant neck swelling RESPIRATORY: Negative for cough, hemoptysis, wheezing, COPD, dyspnea or shortness of breath CARDIOVASCULAR: Negative for chest pain, leg swelling, hypertension, CHF or palpitations PHYSICAL EXAMINATION: BP (P) 136/74 (BP Site: Left Arm, BP Position: Sitting, BP Cuff Size: Large Adult) Pulse (P) 72 Wt 101.2 kg (223 lb) LMP 04/27/2016 BMI 38.28 kg/m GENERAL: alert and appropriate, in no distress and well-hydrated, well nourished SKIN: no rash noted HEAD: normocephalic, no abnormality or lesion noted EYES: PERRL NECK: full ROM, no cervical LNs noted ACANTHOSIS: none noted EXTREMITIES: L > R chronic NEUROLOGIC: no obvious deficit ASSESSMENT: (E11.65) Poorly controlled type 2 diabetes mellitus (HCC) (primary encounter diagnosis) Comment: UNABLE TO DOWNLOAD Telinet CGM due to system issues Reviewed CGM manually = patient elevated between 250-HI Cannot tolerate Metformin due to GI upset. Likely component of insulin resistance present patient unable to obtain TRULICITY. Will switch GLP1 to MOUNJARO 10 mg once a week No changes to insulin dosing at this time as will re add GLP1 Discussed SEE DM ED, modify high carb diet, processed diet STRONGLY RECOMMEND DM education - next week with CDE here at [facility] Recommended diet: Low carbohydrate and Low saturated fat, low simple sugar, high fiber diet Exercise minimally 150 minutes per week, increase as tolerated. Adequate hydration - 1/2 body wgt in oz of water daily, unless fluid restriction applies. I instructed the patient to monitor blood sugars 4 times per day If blood sugars are persistently high or low, to call our office. Patient to continue to follow up with her PCP and with other consultants regarding her other medical problems. Plan: COMP METABOLIC PANEL, LIPID PANEL, NONFASTING, ALBUMIN/CREAT RATIO RND UR, HGB A1C, TSH BLD, T4 FREE/FREE THYROX, T3 FREE BLD (E03.9) Hypothyroidism (acquired) Comment: no current TFTs Plan: T4 FREE/FREE THYROX, T3 FREE BLD Jerrica Duenas CNP [facility] Miscellaneous Notes* Telephone Encounter - Alena Napier LPN - 10/21/2022 8:38 AM EST Left message for patient. Sooner appointments available today. Please reschedule in sooner slot if patient is able. documented in this [facility] History of Present illness Narrative* Rosana Navarro MD - 10/19/2022 8:10 AM EST Overnight oximetry on 2 L 10/14/2022: Total recording time 10 hours 83 minutes SPO2 less than or equal to 88% 2.7 minutes SPO2 less than or equal to 89% 4.3 minutes Lowest SPO2 83% documented in this [facility]-10-2023 Miscellaneous Notes* Telephone Encounter - Rossana Joseph - 10/13/2022 9:45 AM EST Called pt to reschedule 01/01/[address] Douglas. Patient wants to call back and schedule another time. documented in this [facility]12-27-2022 Miscellaneous Notes* Telephone Encounter - Rosa Elena Deluca LPN - 09/29/2022 4:23 PM EST Left a detailed message for patient as to same. * Telephone Encounter - Cole Bower APRN.CNP - 09/29/2022 2:06 PM EST I am not sure why the delayed start date showed but I resent this so hopefully that remedies the issue. * Telephone Encounter - Rosa Elena Deluca LPN - 09/29/2022 1:20 PM EST Not sure if start date was written in error. Script was written at last appointment on 09/18/22 butdid not note belayed start date. * [facility]/29/[facility]22 1:04 PM EST Samantha Romero is calling Sarina Adams MD today with concern regarding not being allowed to pick-up her RX for meloxicam until 10/13/2022, patient is confused why she is to wait this length of time?May a nurse please call patient to advise? Patient has been identified by name and birthdate. Duration of symptoms: N/A Person calling: self Call patient at: at home [phone] (home) [phone] (cell) Was an appointment scheduled: No Closing statement: Results or non-symptom based questions: Thank you for calling [facility], your call will be returned within the next business day. Katherin [facility] Electronically signed by Katherin [facility] [place] 09/29/2022 1:09 PM EST documented in this encounterK[facility]12-27-2022 History of Present illness Narrative* Pete Poole PA-C - 09/29/2022 11:30 AM EST Images from the original note were not included. [facility] NEW PATIENT CLINIC NOTE SERVICE DATE: 09/29/2022 SERVICE TIME: 11:30 AM NAME: Samantha Romero CHIEF COMPLAINT: Kidney Stone and UTI HISTORY OF PRESENT ILLNESS: Samantha Romero is a 57 year old female with PMH including Kidney Stones and dysuria presenting with admitted to [facility] in August 2022 The patient reports was to follow up with Urology after hospitalization for Cystitis and concerns of Kidney Stones Her urine cultures were Negative and Imaging shoed no Kidney Stones , Tumor or Cysts She had urine retention on admission, now PVR is 9 ml and no concerns of retention she states she is going well LUTS: All resolved since D/C from hospital Other symptoms: LABS: No results found for: TESTOST No results found for: TESTFREE No results found for: PSA Hematocrit (%) Date Value 05/22/2021 42.9 04/10/2020 46.2 10/06/2019 48.8 MEDICATIONS: blood sugar diagnostic (FREESTYLE LITE STRIPS) test strip Test blood sugar(s) 4 times daily. Dx: Other DM Code E11.40 Insulin: Yes insulin aspart U-100 (NOVOLOG FLEXPEN U-100 INSULIN) 100 unit/mL (3 mL) Inject 20 units with meals three times daily PLUS sliding scale SS#2 as based on a pre meal blood sugar. ~80 units daily fluticasone (FLONASE) 50 mcg/actuation nasal spray Use 1-2 Sprays in each nostril once daily as needed. Insulin Boerne, Disposable, (BD ULTRAFINE III MINI PEN) 31 gauge x 3/16 inject 1 subcutaneously four times a day [START ON 10/04/2022] dicyclomine (BENTYL) 10 mg capsule Take 1 capsule by mouth before meals and at bedtime. for abdominal pain gabapentin (NEURONTIN) 300 mg capsule Take 1 capsule by mouth twice daily for 180 days. [START ON 10/13/2022] meloxicam (MOBIC) 15 mg tablet Take 1 tablet by mouth once daily as needed forpain. With food. Fenofibrate (LOFIBRA) 160 mg tablet Take 1 tablet by mouth once daily. dulaglutide (TRULICITY) 3 mg/0.5 mL pen injector Inject 3 mg subcutaneously one time a week. empagliflozin (JARDIANCE) 25 mg tablet Take 1 tablet by mouth daily with breakfast. Blood-Glucose Meter monitoring kit Check sugars daily and as needed (Freestyle Lite is what she hashad) Lancets lancets Test blood sugar(s) 4 times daily. Dx: E11.9 Insulin: Yes rosuvastatin (CRESTOR) 10 mg tablet Take 1 tablet by mouth daily at bedtime. flash glucose sensor (FREESTYLE TAYLOR 14 DAY SENSOR) kit Use to check blood sugar 4 times daily. Please give 2 sensors per refill insulin degludec (TRESIBA FLEXTOUCH U-100) 100 unit/mL (3 mL) injection pen Inject 62 Units subcutaneously daily at bedtime. levothyroxine (SYNTHROID) 150 mcg tablet Take 1 tablet by mouth daily before breakfast. hydrOXYzine HCl (ATARAX) 25 mg tablet Take 1-2 tablets by mouth at bedtime as needed. hydroCHLOROthiazide 12.5 mg capsule Take 1 capsule by mouth once daily. lisinopril 2.5 mg tablet Take 1 tablet by mouth once daily. Vitamin E, dl, acetate, (VITAMIN E) 400 unit capsule Take 400 Units by mouth once daily. omega-3 fatty acids (FISH OIL CONCENTRATE ORAL) Take by mouth. Miscellaneous Medical Supply (BLOOD PRESSURE CUFF) 1 Each as needed. Blood pressure Monitor and Cuff, use as directed. Dx: I10 Hypertension flash glucose scanning reader (HeyLets TAYLOR 14 DAY READER) Use to check blood sugar 4 times daily hydrocortisone 2.5 % cream Apply 1 application to affected area twice daily. Location: hands and chest (Patient taking differently: Apply 1 application to affected area twice daily. Location: hands and chest Uses as needed) clotrimazole-betamethasone (LOTRISONE) cream Apply 1 application to affected area twice daily. X 2 weeks. Humphrey-3 Fatty Acids-Vitamin E 1,000 mg cap Take 1 capsule by mouth twice daily. pyridostigmine (MESTINON) 60 mg tablet Take 1 tablet by mouth three times daily. (Patient not taking: Reported on 09/29/2022) blood sugar diagnostic (BLOOD GLUCOSE TEST) test strip Test blood sugar(s) 4 times daily. Dx: Type 2 DM - Controlled E11.9 Insulin: Yes estradiol (ESTRACE) 0.01 % (0.1 mg/gram) vaginal cream Use 3 g vaginally two times a week. PAST MEDICAL HISTORY: PAST MEDICAL HISTORY Diagnosis Date Chronic hypoxemic respiratory failure (HCC) COVID-19 07/06/2021 HTN (hypertension) Hyperlipidemia 04/05/2014 Hypothyroid 04/19/2014 Kidney stone on left side 04/12/2014 Myasthenia gravis (HCC) OA (osteoarthritis) of hip, bilateral 04/04/2014 Type II or unspecified type diabetes mellitus without mention of complication, uncontrolled 04/05/2014 PAST SURGICAL HISTORY: PAST SURGICAL HISTORY Procedure Laterality Date ESWL 04/25/14 kidney stones ESWL 05/16/14 kidney stones. PAST SURGICAL HISTORY OF c-sections x 2 PAST SURGICAL HISTORY OF appendectomy PAST SURGICAL HISTORY OF tubal ligation REMV CATARACT EXTRACAP,INSERT LENS Left 06/12/2021 Monofocal IOL 17.5 D XCAPSL CTRC RMVL INSJ IO LENS PROSTH W/O ECP Right 05/29/2021 FAMILY HISTORY: FAMILY HISTORY Problem Relation Age of Onset Diabetes Mother Cervical Cancer Sister Diabetes Brother Cancer Maternal Grandmother Stomach CA Breast Cancer Maternal Aunt 50's SOCIAL HISTORY: Social Connections: Not on file REVIEW OF SYSTEMS: GENERAL: No fever, chills, weight loss, or fatigue. ENMT: Negative CARDIOVASCULAR:NO CHEST PAIN, PALPITATIONS, ANKLE EDEMA RESPIRATORY: No chronic cough, wheezing, dyspnea, hemoptysis. GENITOURINARY: SEE HPI MUSCULOSKELETAL:NO CHRONIC BACK PAIN, ARTHRITIS, CHRONIC NECK PAIN SKIN: NO VARICOSE VEINS, RASH, ABNORMAL ITCHING HEME/LYMPH/IMMUNE:Negative for prolonged bleeding, bruising easily or swollen nodes NEUROLOGICAL: NO HEADACHES, NUMBNESS, SEIZURES, STROKE DIABETES: y All other systems reviewed and are negative PHYSICAL EXAMINATION: Blood pressure 104/60, pulse 86, temperature 36.5 C (97.7 F), temperature source Temporal, resp. rate 20, height 162.6 cm (5' 4), weight 95.3 kg (210 lb), last menstrual period 04/27/2016, SpO2 100 %. GENERAL: WNL nutrition, no deformities, healthy appearing NEURO: Awake, alert and oriented x 3 and Normal gait PSYCH: No signs of depression, anxiety, or agitation ENMT (Ear, Nose, Mouth, Throat): No masses, adenopathy, icterus. Thyroid nonpalpable RESP: NL effort, no retractions or purse-lip breathing. CV: No extremity swelling, varices, edema, pallor, erythema GASTROINTESTINAL: Soft, nontender, nondistended, no masses. HERNIAS: None SKIN: No rash, lesions No palpable lymphadenopathy MUSCULOSKELETAL: Extremities normal. No deformities, edema, clubbing or skin discoloration. PROBLEM LIST REVIEW: Yes LABS: Results for orders placed or performed in visit on 08/24/22 UA DIP, URINE (POC) Result Value Ref Range GLUCOSE UA (POCT) >=1000 (A) Negative mg/dL BILIRUBIN UA (POCT) Negative Negative KETONE UA (POCT) Negative Negative mg/dL SPECIFIC GRAVITY UA (POCT) 1.015 1.005 - 1.030 HEMOGLOBIN/BLOOD UA (POCT) Moderate (A) Negative PH UA (POCT) 6.0 4.5 - 8.0 PROTEIN UA (POCT) 30 (A) Negative mg/dL UROBILINOGEN UA (POCT) 0.2 Normal E.U./dL NITRITE UA (POCT) Negative Negative LEUKOCYTES UA (POCT) Trace (A) Negative COLOR UA (POCT) Yellow CLARITY UA (POCT) Clear URINE CULTURE Specimen: URINE-MIDSTREAM CLEAN CATCH; Urine Random Result Value Ref Range Culture, Urine Mixed microbiota, including predominantly: Culture, Urine (A) 10,000 -<50,000 CFU/ml Streptococcus agalactiae (group b streptococcus) All Negative Urine Cultures PROCEDURES: PVR: 0 ml IMAGING: Reviewed all imagine done a [facility] with patient no urologic concerns seen on imaging IMPRESSION/PLAN: 57 year old female with 1. Urinary retention - ICD9: 788.20, ICD10: R33.9 2. Complicated UTI (urinary tract infection) - ICD9: 599.0, ICD10: N39.0 3. 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) - ICD9: 250.50, 362.05, 362.07, ICD10: E11.3319 4. Myasthenia gravis (HCC) - ICD9: 358.00, ICD10: G70.00 > Glycosuria on every Urine Sample I spent a total of 30 minutes on the date of the service which included preparing to see the patient, face to face patient care, completing clinical documentation, obtaining and/or reviewing separately obtained history, performing a medically appropriate examination, counseling and educating the pat ient/family/caregiver, ordering medications, tests, or procedures, and care coordination. AME Pritchett MT, MARIUSZ * Addi Dodd LPN - 09/29/2022 11:11 AM EST Verified name and date of . CC Post Void Residual HPI: Samantha Romero is a 57 year old female. The patient is here now for an appointment with AME Pritchett MT, ESPERANZA. Procedure: Explained procedure to patient and verbalizes understanding. Performed a PVR. Patient urinated and instructed to empty bladder as much as possible just prior to having PVR done using bladder ultrasound scanner. Results of scan: 9 mL The patient tolerated the procedure well. Plan: Appointment with Pete. documented in this [facility]12-26-2022 Miscellaneous Notes* Telephone Encounter - Sarina Adams MD - 09/28/2022 2:05 PM EST The following approved medication requests have been transmitted electronically. Requested Prescriptions Prescriptions Disp Refills blood sugar diagnostic (FREESTYLE LITE STRIPS) test strip 50 Strip 3 Sig: Test blood sugar(s) 4 times daily. Dx: Other DM Code E11.40 Insulin: Yes Sarina Adams MD * Telephone Encounter - Iraida Pena RN - 09/26/2022 10:47 AM EST Last Office Visit: 09/18/2022 Future Office Visit: 12/18/2022 Requested Prescriptions Pending Prescriptions Disp Refills blood sugar diagnostic (FREESTYLE LITE STRIPS) test strip 50 Strip 3 Sig: Test blood sugar(s) 4 times daily. Dx: Other DM Code E11.40 Insulin: Yes Date of Last Labs: 07/07/2022 documented in this [facility]12-19-2022 Miscellaneous Notes* Telephone Encounter - Mercedes Haji - 09/21/2022 12:05 PM EST Last OV: 09/18/22 Next OV: 12/18/22 documented in this [facility]12-19-2022 Miscellaneous Notes* Telephone Encounter - Mercedes Haji - 09/21/2022 12:03 PM EST Last OV: 09/18/22 Next OV: 12/18/22 [facility] Instructions* Patient Instructions* Sarina Adams MD - 09/18/2022 3:01 PM EST Goal blood sugars fasting (when wake up) is under 150 Goal blood sugar non-fasting (no sooner than 2 hours after last ate) is under 180 ideally. At leastunder 200. Start using the knee high diabetic socks. If swelling gets worse, will consider Lasix to help with getting extra fluid off. documented in this [facility]12-16-2022 History of Present illness Narrative* Sarina Adams MD - 09/18/2022 2:31 PM EST This note was created using Telerivetriter. Subjective Samantha Romero is a 57 year old female. Patient presents with: Recheck: 3 month follow up SUBJECTIVE: Samantha Romero is a 57 year old year old lady here today for 3 month follow up appointment for reviewof medical conditions. Reviewed that was in hospital with bladder infection. To see urologist Noted swelling top of foot more on left than right. Also some leg swelling, more on left. Some increase after IVF in hospital No increased urination after got home. Does elevated legs during day when sitting. Also noted bad pains in back. Hard to stand at sink to do dishes. Takes Tylenol as needed. Heat and ice not helping. No triggers for the onset of pain--no trauma. Had a fall in the bathroom after got home from hospital. No apparent injuries except noted some tailbone pain--did not land on bottom though. Landed on shower chair so that prevented worse fall--fell forward. No pain shooting down legs. Meloxicam helped some. Gabapentin for neuropathy--maybe helps with back. Sugars up to 289 this AM. 3 grilled cheese sandwiches last night but was white bread instead of wheat (this does not cause sugars to go up).. Sugars were 190s somedays. Highest was 400. Lowest was 90. Still 220s before eating. Drinks zero sugar drinks. Sometimes feels like food gets stuck in midchest. Hurts. Drinking water helps it go down. Started recently. On and off happens anytime eats. About twice daily meals. Does not bother her as much when eats sandwich. Goulash was okay. Gas and loose stools noted with mestinon. Reflux off and on. Not more than twice a week. Used to give blood. Asked how to get blood type. PAST MEDICAL HISTORY Diagnosis Date Chronic hypoxemic respiratory failure (HCC) COVID-19 07/06/2021 HTN (hypertension) Hyperlipidemia 04/05/2014 Hypothyroid 04/19/2014 Kidney stone on left side 04/12/2014 Myasthenia gravis (HCC) OA (osteoarthritis) of hip, bilateral 04/04/2014 Type II or unspecified type diabetes mellitus without mention of complication, uncontrolled 04/05/2014 Current Outpatient Medications Medication Sig gabapentin (NEURONTIN) 300 mg capsule Take 1 capsule by mouth twice daily for 30 days. meloxicam (MOBIC) 15 mg tablet Take 1 tablet by mouth once daily as needed for pain. With food. dulaglutide (TRULICITY) 3 mg/0.5 mL pen injector Inject 3 mg subcutaneously one time a week. dicyclomine (BENTYL) 10 mg capsule Take 1 capsule by mouth before meals and at bedtime. for abdominal pain empagliflozin (JARDIANCE) 25 mg tablet Take 1 tablet by mouth daily with breakfast. pyridostigmine (MESTINON) 60 mg tablet Take 1 tablet by mouth three times daily. Blood-Glucose Meter monitoring kit Check sugars daily and as needed (Freestyle Lite is what she hashad) blood sugar diagnostic (FREESTYLE LITE STRIPS) test strip Test blood sugar(s) 4 times daily. Dx: Other DM Code E11.40 Insulin: Yes blood sugar diagnostic (BLOOD GLUCOSE TEST) test strip Test blood sugar(s) 4 times daily. Dx: Type 2 DM - Controlled E11.9 Insulin: Yes Lancets lancets Test blood sugar(s) 4 times daily. Dx: E11.9 Insulin: Yes rosuvastatin (CRESTOR) 10 mg tablet Take 1 tablet by mouth daily at bedtime. flash glucose sensor (FREESTYLE TAYLOR 14 DAY SENSOR) kit Use to check blood sugar 4 times daily. Please give 2 sensors per refill insulin degludec (TRESIBA FLEXTOUCH U-100) 100 unit/mL (3 mL) injection pen Inject 62 Units subcutaneously daily at bedtime. insulin aspart U-100 (NOVOLOG FLEXPEN U-100 INSULIN) 100 unit/mL (3 mL) Inject 20 units with meals three times daily PLUS sliding scale SS#2 as based on a pre meal blood sugar. ~80 units daily Insulin [place], Disposable, (BD ULTRAFINE III MINI PEN) 31 gauge x 3/16 inject 1 subcutaneously four times a day levothyroxine (SYNTHROID) 150 mcg tablet Take 1 tablet by mouth daily before breakfast. hydrOXYzine HCl (ATARAX) 25 mg tablet Take 1-2 tablets by mouth at bedtime as needed. hydroCHLOROthiazide 12.5 mg capsule Take 1 capsule by mouth once daily. Fenofibrate (LOFIBRA) 160 mg tablet Take 1 tablet by mouth once daily. lisinopril 2.5 mg tablet Take 1 tablet by mouth once daily. fluticasone (FLONASE) 50 mcg/actuation nasal spray Use 1-2 Sprays in each nostril once daily as needed. Vitamin E, dl, acetate, (VITAMIN E) 400 unit capsule Take 400 Units by mouth once daily. omega-3 fatty acids (FISH OIL CONCENTRATE ORAL) Take by mouth. Miscellaneous Medical Supply (BLOOD PRESSURE CUFF) 1 Each as needed. Blood pressure Monitor and Cuff, use as directed. Dx: I10 Hypertension flash glucose scanning reader (HeyLets TAYLOR 14 DAY READER) Use to check blood sugar 4 times daily hydrocortisone 2.5 % cream Apply 1 application to affected area twice daily. Location: hands and chest estradiol (ESTRACE) 0.01 % (0.1 mg/gram) vaginal cream Use 3 g vaginally two times a week. clotrimazole-betamethasone (LOTRISONE) cream Apply 1 application to affected area twice daily. X 2 weeks. Humphrey-3 Fatty Acids-Vitamin E 1,000 mg cap Take 1 capsule by mouth twice daily. No current facility-administered medications for this visit. Review of Systems Objective LMP 04/27/2016 Physical Exam Constitutional: Appearance: Normal appearance. HENT: Head: Normocephalic. Eyes: Conjunctiva/sclera: Conjunctivae normal. Cardiovascular: Rate and Rhythm: Normal rate and regular rhythm. Heart sounds: Normal heart sounds. Pulmonary: Effort: Pulmonary effort is normal. Breath sounds: Normal breath sounds. Musculoskeletal: Right lower leg: Edema present. Left lower leg: Edema present. Skin: General: Skin is warm and dry. Neurological: General: No focal deficit present. Mental Status: She is alert and oriented to person, place, and time. Psychiatric: Mood and Affect: Mood normal. Behavior: Behavior normal. Thought Content: Thought content normal. Judgment: Judgment normal. Hemoglobin A1C (%) Date Value 07/07/2022 9.8 03/26/2022 10.4 04/10/2021 8.3 10/25/2020 10.3 04/10/2020 8.5 10/06/2019 10.7 06/07/2019 10.8 Assessment and Plan Encounter Diagnosis ICD-10-CM 1. Esophageal dysphagia R13.19 2. Chronic midline low back pain, unspecified whether sciatica present M54.50 gabapentin (NEURONTIN) 300 mg capsule G89.29 DISCONTINUED: meloxicam (MOBIC) 15 mg tablet 3. 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 4. Myasthenia gravis (HCC) G70.[address] Douglas; also had follow up with Dr. Zamora 5. Mixed hyperlipidemia E78.2 Fenofibrate (LOFIBRA) 160 mg tablet 6. Bilateral leg edema R60.0 left more than right; See patient instructions 7. Gastroesophageal reflux disease with esophagitis without hemorrhage K21.00 Intermittent reflux Above issues addressed with patient. Patient involved in shared decision making for management of medical issues. History and medications reviewed. Epic updated as needed Refills and/or prescriptions taken care of and meds adjusted as indicated after reviewed history, exam and labs. Health Maintenance reviewed. Updated record and/or ordered tests as recorded. Encouraged on efforts at healthy diet and regular exercise and adequate sleep. Needs to keep working on diet and exercise with lifestyle changes for effective weight loss as wellas control of DM, and control of BP and lipids. Sarina Adams MD documented in this encounterK[facility]12-13-2022 Miscellaneous Notes* Telephone Encounter - Mercedes Haji Ma - 09/15/2022 9:48 AM EST One refill available at pharmacy documented in this encounterK[facility]12-12-2022 History of Present illness Narrative* Ericka Zamora, OD - 09/14/2022 2:17 PM EST 1. 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 Educated patient to continue care with primary care doctor and/or turkey cleaner to maintain optimum levels as they are important to avoid ocular complications. Encouraged patient to call the office immediately with any changes to vision or visual concerns. Advised to not wait until the next scheduled exam. Slightly worse CME left eye- will consult with Dr. Connors about possible intervention vs observation 2. Pseudophakia of both eyes Doing well-observe 3. Ptosis of right eyelid 4. Myasthenia gravis (HCC) Ptosis improved since on Mestinon for Myasthenia treatment -continue to observe 5. Dry eye syndrome of bilateral lacrimal glands Recommended Systane 2-4 times daily and gel nightly Follow-up in 3 months for dilation/ mac OCT or sooner as directed by Dr. Waylon Zamora, OD September 14, 2022 2:17 PM documented in this encounterK[facility]12-12-2022 Instructions* Patient Instructions* Ericka Zamora, OD - 09/14/2022 2:13 PM EST Use Systane Complete/Ultra or Refresh Relieva 2-3 times daily Use Systane, Refresh or Blink gel nightly before bed in both eyes documented in this encounterK[facility]11-25-2022 History of Present illness Narrative* Monty Douglas MD - 08/28/2022 1:55 PM EST CC: MG fu Right lid ptosis No diplopia. No dysarthria No dysphagia Started mestinon 60 mg tid. Seems to help A bit droopy eyelid towards evening Much better than it had been Some occasional gas w/ mestinon but tolerating it ok No new MG symptoms. Was in hospital d/t uti; wsa initially on levofloxacin, changed to bactrim after my chart message w/ me recommending avoiding flouroquinolones. S: BP 93/61 (BP Site: Right Arm, BP Position: Sitting, BP Cuff Size: Large Adult) Pulse 76 Wt 93 kg (205 lb) LMP 04/27/2016 BMI 35.19 kg/m Minimal right ptosis. Normal speech Gait antalgic w/ cane. CT chest: IMPRESSION: Bronchiectasis. Left lung base bleb Evidence of remote granulomatous disease. Pericardial effusion. No developing suspicious mass or adenopathy. No evidence of thymic mass. IMPRESSION: Bronchiectasis. Left lung base bleb Evidence of remote granulomatous disease. Pericardial effusion. No developing suspicious mass or adenopathy. No evidence of thymic mass. Assessment/Plan : Seropositive occular MG; R>L ptosis only, no other mg symptoms. Comorbid poorly controlled DM last A1C 10.4; diabetic retinopathy; diabetic neuropathy (on gpn 300 mg bid) hypothyroidism. Started mestinon 60 mg tid. Helping, continue, advised her to take third dose at 6 pm to maximize evening benefit She should contact me if symptoms need more treatment, next step would be to add fourth mestinon dose. Ct chest no thymoma No prednisone d/t severe DM She is currently working w/ endocrine to improved control. As symptoms are doing well with conservative management, would not add disease modifying therapy atthis time. RTC 4 months. documented in this encounterK[facility]11-21-2022 Miscellaneous Notes* Telephone Encounter - Vanessa Li RN - 08/24/2022 2:05 PM EST Contacted [facility] and updated them of medication change as documented below. Vanessa Li RN * Telephone Encounter - Denise Alvarado APRN.CNS - 08/24/2022 1:15 PM EST Please let pharmacy know that antibiotic was changed. Discontinued levofloxacin and ordered Bactrim. documented in this encounterK[facility]11-11-2022 Miscellaneous Notes* Telephone Encounter - Mercedes Haji Ma - 08/14/2022 1:06 PM EST Duplicate request documented in this encounterK[facility]11-11-2022 Miscellaneous Notes* Telephone Encounter - Mercedes Haji Ma - 08/14/2022 12:35 PM EST Next OV 08/24/22 * Telephone Encounter - Tianna Arthur - 08/14/2022 10:58 AM EST Patient has been identified by name and date of : Yes Patient phones for refill(s): Requested Prescriptions Pending Prescriptions Disp Refills gabapentin (NEURONTIN) 300 mg capsule 60 capsule 0 Sig: Take 1 capsule by mouth twice daily for 30 days. meloxicam (MOBIC) 15 mg tablet 30 tablet 1 Sig: Take 1 tablet by mouth once daily as needed for pain. With food. Date of last office visit in primary care: 06/26/22 Last 2 Encounter Wt Readings: Date: Wt: 07/21/2022 90.7 kg (200 lb) 07/03/2022 90.7 kg (200 lb) Previous labs/tests for medication: Not applicable Please advise. Thank you. Tianna Arthur documented in this encounterK[facility]11-11-2022 Miscellaneous Notes* Telephone Encounter - Mercedes Haji Ma - 08/14/2022 12:09 PM EST Last OV: 06/26/22 Next OV:08/24/22 * Telephone Encounter - Tianna Arthur - 08/14/2022 11:04 AM EST Patient has been identified by name and date of : Yes Patient phones for refill(s): Requested Prescriptions Pending Prescriptions Disp Refills dulaglutide (TRULICITY) 3 mg/0.5 mL pen injector 4 Each 5 Sig: Inject 3 mg subcutaneously one time a week. Date of last office visit in primary care: 06/26/22 Last 2 Encounter Wt Readings: Date: Wt: 07/21/2022 90.7 kg (200 lb) 07/03/2022 90.7 kg (200 lb) Previous labs/tests for medication: Not applicable Please advise. Thank you. Tianna Arthur documented in this encounterK[facility]11-01-2022 Miscellaneous Notes* Telephone Encounter - Sarina Adams MD - 08/04/2022 9:06 PM EDT The following approved medication requests have been transmitted electronically. Requested Prescriptions Prescriptions Disp Refills dicyclomine (BENTYL) 10 mg capsule 120 capsule 2 Sig: Take 1 capsule by mouth before meals and at bedtime. for abdominal pain empagliflozin (JARDIANCE) 25 mg tablet 90 tablet 3 Sig: Take 1 tablet by mouth daily with breakfast. Sarina Adams MD * Telephone Encounter - Kristen Bronson LPN - 08/04/2022 4:24 PM EDT Records show refills on Jardiance at the pharmacy. Patient has been identified by name and date of : Yes Patient phones for refill(s): Requested Prescriptions Pending Prescriptions Disp Refills dicyclomine (BENTYL) 10 mg capsule 120 capsule 2 Sig: Take 1 capsule by mouth before meals and at bedtime. for abdominal pain Refused Prescriptions Disp Refills empagliflozin (JARDIANCE) 25 mg tablet 90 tablet 3 Sig: Take 1 tablet by mouth daily with breakfast. Date of last office visit in primary care: 06/26/22 next apt 09/18/22 Last 2 Encounter Wt Readings: Date: Wt: 07/21/2022 90.7 kg (200 lb) 07/03/2022 90.7 kg (200 lb) Previous labs/tests for medication: Not applicable Thank you. Kristen Bronson LPN documented in this encounterK[facility]10-18-2022 History of Present illness Narrative* Rosana Navarro MD - 07/21/2022 2:15 PM EDT Images from the original note were not included. . [facility] [place] Note Patient name: Samantha Romero PCP: Sarina Adams MD CC: Post COVID chronic dyspnea HPI: Samantha Romero 56 year old female former 30 pack year smoker with PMH significant for HTN, DM, hypothyroidism, HTN and history of COVID PNA 07/2021. Required HFNC, dex/remdesivir/baricitinib and 4liters supplemental oxygen at discharge. At LIDIA, was down to 2 Liters during the day and 4 Liters at night, chest imaging showed improvement and she was referred for lung cancer screening. Since her LIDIA, she has a new diagnosis of ocular MG and is being evaluated for thymoma. Started Mestinon. Steroids withheld due to poorly controlled DM. She has taken her oxygen off but states she gets SOB and starts having chest pressure after 15 minutes. Although she has a pulse oximeter, she does not know how to read it (previously instructed). She is having nose bleeds due to the higher flow oxygen at night, despite humidification. Main persistent respiratory symptom is dyspnea. No significant cough, chest pain or wheezing. Some issues with her memory. DRESPIRATORY THERAPY OXIMETRY WITH AMBULATION Oximetry with Ambulation Test for This Encounter O2 Device O2 Adapter NC O2 Flow SpO2% HR Activity Ft Walked (ft) Time (min) Avg Speed (MPH) R/A 95 83 Resting R/A 88 89 Walking, usual pace 450 3 1.7 NC 2 95 86 Resting NC 2 94 100 Walking, usual pace 450 3 1.7 PAST MEDICAL HISTORY Diagnosis Date Chronic hypoxemic respiratory failure (HCC) COVID-19 07/06/2021 HTN (hypertension) Hyperlipidemia 04/05/2014 Hypothyroid 04/19/2014 Kidney stone on left side 04/12/2014 Myasthenia gravis (HCC) OA (osteoarthritis) of hip, bilateral 04/04/2014 Type II or unspecified type diabetes mellitus without mention of complication, uncontrolled 04/05/2014 ALLERGIES Allergen Reactions Metformin Diarrhea Diarrhea every time takes, even with ER dose Oxycodone GI Upset Percocet [Oxycodone* GI Upset and off balance meloxicam (MOBIC) 15 mg tablet Take 1 tablet by mouth once daily as needed for pain. With food. gabapentin (NEURONTIN) 300 mg capsule Take 1 capsule by mouth twice daily for 30 days. pyridostigmine (MESTINON) 60 mg tablet Take 1 tablet by mouth three times daily. Blood-Glucose Meter monitoring kit Check sugars daily and as needed (Freestyle Lite is what she hashad) blood sugar diagnostic (FREESTYLE LITE STRIPS) test strip Test blood sugar(s) 4 times daily. Dx: Other DM Code E11.40 Insulin: Yes blood sugar diagnostic (BLOOD GLUCOSE TEST) test strip Test blood sugar(s) 4 times daily. Dx: Type 2 DM - Controlled E11.9 Insulin: Yes Lancets lancets Test blood sugar(s) 4 times daily. Dx: E11.9 Insulin: Yes rosuvastatin (CRESTOR) 10 mg tablet Take 1 tablet by mouth daily at bedtime. flash glucose sensor (FREESTYLE TAYLOR 14 DAY SENSOR) kit Use to check blood sugar 4 times daily. Please give 2 sensors per refill insulin degludec (TRESIBA FLEXTOUCH U-100) 100 unit/mL (3 mL) injection pen Inject 62 Units subcutaneously daily at bedtime. dulaglutide (TRULICITY) 3 mg/0.5 mL pen injector Inject 3 mg subcutaneously one time a week. insulin aspart U-100 (NOVOLOG FLEXPEN U-100 INSULIN) 100 unit/mL (3 mL) Inject 20 units with meals three times daily PLUS sliding scale SS#2 as based on a pre meal blood sugar. ~80 units daily Insulin [place], Disposable, (BD ULTRAFINE III MINI PEN) 31 gauge x 3/16 inject 1 subcutaneously four times a day levothyroxine (SYNTHROID) 150 mcg tablet Take 1 tablet by mouth daily before breakfast. hydrOXYzine HCl (ATARAX) 25 mg tablet Take 1-2 tablets by mouth at bedtime as needed. empagliflozin (JARDIANCE) 25 mg tablet Take 1 tablet by mouth daily with breakfast. dicyclomine (BENTYL) 10 mg capsule Take 1 capsule by mouth before meals and at bedtime. for abdominal pain hydroCHLOROthiazide 12.5 mg capsule Take 1 capsule by mouth once daily. Fenofibrate (LOFIBRA) 160 mg tablet Take 1 tablet by mouth once daily. lisinopril 2.5 mg tablet Take 1 tablet by mouth once daily. fluticasone (FLONASE) 50 mcg/actuation nasal spray Use 1-2 Sprays in each nostril once daily as needed. Vitamin E, dl, acetate, (VITAMIN E) 400 unit capsule Take 400 Units by mouth once daily. omega-3 fatty acids (FISH OIL CONCENTRATE ORAL) Take by mouth. Miscellaneous Medical Supply (BLOOD PRESSURE CUFF) 1 Each as needed. Blood pressure Monitor and Cuff, use as directed. Dx: I10 Hypertension flash glucose scanning reader (HeyLets TAYLOR 14 DAY READER) Use to check blood sugar 4 times daily hydrocortisone 2.5 % cream Apply 1 application to affected area twice daily. Location: hands and chest estradiol (ESTRACE) 0.01 % (0.1 mg/gram) vaginal cream Use 3 g vaginally two times a week. clotrimazole-betamethasone (LOTRISONE) cream Apply 1 application to affected area twice daily. X 2 weeks. Humphrey-3 Fatty Acids-Vitamin E 1,000 mg cap Take 1 capsule by mouth twice daily. Social History Tobacco Use Smoking status: Former Packs/day: 1.00 Years: 30.00 Pack years: 30.00 Types: Cigarettes Quit date: 11/04/2013 Years since quittin.7 Smokeless tobacco: Never Vaping Use Vaping Use: Never used Substance Use Topics Alcohol use: Yes Comment: wine cool every once in a while Drug use: No PMH, Social history, family history and surgical history reviewed and updated in EMR REVIEW OF SYSTEMS: CONSTITUTIONAL: No fevers, chills, nightsweats, unintended weight loss HEENT: Denies headaches nasal congestion/sinus symptoms. Nose bleeds EYES: Diplopia CARDIOVASCULAR: No palpitations, orthopnea, PND. PÉREZ, edema and intermittent chest pressure PULM: See HPI GI: No dysphagia/odynophagia, reflux. Diarrhea NEURO: No new balance problems, peripheral weakness/paresthesias or numbness of concern. INTEGUMENTARY: No new skin changes or rashes PHYSICAL EXAMINATION: BP 104/62 Pulse 84 Resp 16 Wt 200 lb (90.7kg) SpO2 95[2 liters]% LMP 04/27/2016 General Appearance: Obese female appearing older than stated age Skin: Skin color, texture, turgor normal, no suspicious rashes or lesions. Head: Normocephalic, no masses, lesions, tenderness or abnormalities. Oropharynx: Edentulous, no lesions Neck: No JVD, no masses, no TM Lungs: Not labored, normal to percussion. Fine crackles in left base Heart: RRR, no murmur Extremities: No significant edema, no clubbing Neurologic: No weakness Assessment/Plan: Post COVID chronic dyspnea -No specific therapy other than continued activity as able Chronic hypoxemic respiratory failure -Patient instructed to bring her oximeter for re-education on use. This will speed up process of possible discontinuation of oxygen -Will check nocturnal oximetry at night on 2 L to see if lower level is adequate Rosana Navarro MD [facility] [place] documented in this encounterK[facility]10-14-2022 History of Present illness Narrative* Addi Andrade, RT(R) - 07/17/2022 1:00 PM EDT Radiology Service Progress Note PATIENT NAME: Samantha Romero DATE OF SERVICE: July 17, 2022 TIME: 3:28 PM PATIENT IDENTITY VERIFICATION COMPLETED USING TWO (2) IDENTIFIERS: Name and Date of confirmedby patient verbally. FALL SCREENING: Has the patient had 2 falls in the last year or 1 fall with injury or currently using an Ambulatory Assistive Device (Walker, Cane, Wheelchair, Crutches, etc.)? No PATIENT GENDER DATA: Female. status: : No status: NO. PATIENT RELEVANT IMPLANT DATA REVIEWED: Not Applicable RADIOLOGY DEPARTMENT: CT; Exam(s) Completed: Chest PERIPHERAL IV DATA: Not applicable SIGNED BY: RT Mallika(R) July 17, 2022 3:28 PM documented in this encounterK[facility]10-12-2022 Miscellaneous Notes* Telephone Encounter - Kristen Bronson LPN - 07/15/2022 2:11 PM EDT Attempted to reach by phone without success. Mailbox full. Sending out a letter to pt with information listed below. Kristen Bronson LPN * Telephone Encounter - Kristen Bronson LPN - 07/14/2022 3:55 PM EDT Attempted to reach pt and her mail box is full. Try later. 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 * Telephone Encounter - Sophie Wolfe - 07/10/2022 12:48 PM EDT Patient has been identified by name and date of : Yes Requested Prescriptions Pending Prescriptions Disp Refills meloxicam (MOBIC) 15 mg tablet 30 tablet 1 Sig: Take 1 tablet by mouth once daily as needed for pain. With food. gabapentin (NEURONTIN) 300 mg capsule 60 capsule 0 Sig: Take 1 capsule by mouth twice daily for 30 days. Patient states that the One Touch testing equipment is on back order. Patient is asking if another brand can be prescribed to her. RX INSTRUCTIONS: Patient aware RX will be sent to pharmacy. No need to notify patient. Sophie Wolfe documented in this encounterK[facility]09-30-2022 Instructions* Patient Instructions* Monty Douglas MD - 07/03/2022 1:40 PM EDT You are starting on a medication called pyridostigmine (also called mestinon). Pyridostigmine helps increase the acetylcholine (a neurotransmitter) in your body. This is a short acting medication that helps improve muscle strength in patients with MG. The medication is usually given three times a day. It's effects usually last several hours. Common side effects include stomach upset, diarrhea, and excess saliva production. If you have any side effects we can talk about them, and try to adjust the dose as needed. I have ordered a CT scan of your chest (CAT scan). This is to look for a thymoma - a tumor of the thymus gland. Patients with MG are at higher risk for developing these tumors, so it is a good idea to do a scan when you are diagnosed. Most patients with MG, however, do not have this tumor, so the scan is a precautionary screening measure. You should be aware of medications that should be avoided in patients with MG. There are some medications that could exacerbate or worsen MG symptoms. The most common medications that need to be avoided include: 1. Certain categories of antibiotics - flouroquinolones, macrolides, and vancomycin 2. Certain anesthetics - always tell you anesthesiologist that you have MG. 3. Magnesium containing supplements. Before you start any new medication, ask the prescribing doctor to check - Is this medication safe for patients with MG? If you are unsure, please reach out to me to check. An excellent information source for myasthenia gravis is the MG foundation. There is patient centered information available. https://myasthenia.org/ documented in this encounterK[facility]09-30-2022 History of Present illness Narrative* Monty Douglas MD - 07/03/2022 1:00 PM EDT HPI: This is Ms. Samantha Romero a 56 year old female from who [facility] with a chief complaint of MG Referral is from Sarina Adams MD, her PCP Right lid ptosis, symptom onset a few months ago. Impedes her vision often. No diplopia. No dysarthria No dysphagia Has post covid breathing problems, has been on O2 for past year since then Ach receptor ab 3.3 03/25 Comorbid poorly controlled DM last A1C 10.4; hyperthyroidism. Follows w/ endocrine now, using taylor glucose monitor. Just adjusted her medications, now on sliding scale PMH: PAST MEDICAL HISTORY Diagnosis Date COVID-19 07/06/2021 HTN (hypertension) Hyperlipidemia 04/05/2014 Hypothyroid 04/19/2014 Kidney stone on left side 04/12/2014 OA (osteoarthritis) of hip, bilateral 04/04/2014 Type II or unspecified type diabetes mellitus without mention of complication, uncontrolled 04/05/2014 Medications: Current Outpatient Medications Medication Sig Dispense Refill Blood-Glucose Meter monitoring kit Check sugars daily and as needed (Freestyle Lite is what she hashad) 1 Each 0 blood sugar diagnostic (FREESTYLE LITE STRIPS) test strip Test blood sugar(s) 4 times daily. Dx: Other DM Code E11.40 Insulin: Yes 50 Strip 3 blood sugar diagnostic (BLOOD GLUCOSE TEST) test strip Test blood sugar(s) 4 times daily. Dx: Type 2 DM - Controlled E11.9 Insulin: Yes 200 Strip 11 Lancets lancets Test blood sugar(s) 4 times daily. Dx: E11.9 Insulin: Yes 200 Each 11 rosuvastatin (CRESTOR) 10 mg tablet Take 1 tablet by mouth daily at bedtime. 30 tablet 11 flash glucose sensor (FREESTYLE TAYLOR 14 DAY SENSOR) kit Use to check blood sugar 4 times daily. Please give 2 sensors per refill 2 Kit 5 gabapentin (NEURONTIN) 300 mg capsule Take 1 capsule by mouth twice daily for 30 days. 60 capsule 0 insulin degludec (TRESIBA FLEXTOUCH U-100) 100 unit/mL (3 mL) injection pen Inject 62 Units subcutaneously daily at bedtime. 45 mL 1 dulaglutide (TRULICITY) 3 mg/0.5 mL pen injector Inject 3 mg subcutaneously one time a week. 4 Each5 insulin aspart U-100 (NOVOLOG FLEXPEN U-100 INSULIN) 100 unit/mL (3 mL) Inject 20 units with meals three times daily PLUS sliding scale SS#2 as based on a pre meal blood sugar. ~80 units daily 15 Each 3 meloxicam (MOBIC) 15 mg tablet Take 1 tablet by mouth once daily as needed for pain. With food. 30 tablet 1 Insulin [place], Disposable, (BD ULTRAFINE III MINI PEN) 31 gauge x 3/16 inject 1 subcutaneously four times a day 200 Each 3 levothyroxine (SYNTHROID) 150 mcg tablet Take 1 tablet by mouth daily before breakfast. 30 tablet 11 hydrOXYzine HCl (ATARAX) 25 mg tablet Take 1-2 tablets by mouth at bedtime as needed. 30 tablet 3 empagliflozin (JARDIANCE) 25 mg tablet Take 1 tablet by mouth daily with breakfast. 90 tablet 3 dicyclomine (BENTYL) 10 mg capsule Take 1 capsule by mouth before meals and at bedtime. for abdominal pain 120 capsule 2 EYE DROPS DISPENSER MIS cystene hydroCHLOROthiazide 12.5 mg capsule Take 1 capsule by mouth once daily. 30 capsule 11 Fenofibrate (LOFIBRA) 160 mg tablet Take 1 tablet by mouth once daily. 30 tablet 11 lisinopril 2.5 mg tablet Take 1 tablet by mouth once daily. 90 tablet 3 fluticasone (FLONASE) 50 mcg/actuation nasal spray Use 1-2 Sprays in each nostril once daily as needed. 1 Each 11 Vitamin E, dl, acetate, (VITAMIN E) 400 unit capsule Take 400 Units by mouth once daily. omega-3 fatty acids (FISH OIL CONCENTRATE ORAL) Take by mouth. Miscellaneous Medical Supply (BLOOD PRESSURE CUFF) 1 Each as needed. Blood pressure Monitor and Cuff, use as directed. Dx: I10 Hypertension 1 Each 0 flash glucose scanning reader (FREESTYLE TAYLOR 14 DAY READER) Use to check blood sugar 4 times daily 1 Each 0 hydrocortisone 2.5 % cream Apply 1 application to affected area twice daily. Location: hands and chest 20 g 0 estradiol (ESTRACE) 0.01 % (0.1 mg/gram) vaginal cream Use 3 g vaginally two times a week. 42.5 g 6 clotrimazole-betamethasone (LOTRISONE) cream Apply 1 application to affected area twice daily. X 2 weeks. 45 g 0 Humphrey-3 Fatty Acids-Vitamin E 1,000 mg cap Take 1 capsule by mouth twice daily. No current facility-administered medications for this visit. Allergies: ALLERGIES Allergen Reactions Metformin Diarrhea Diarrhea every time takes, even with ER dose Oxycodone GI Upset Percocet [Oxycodone* GI Upset and off balance Social History: Social History Tobacco Use Smoking status: Former Packs/day: 1.00 Years: 30.00 Pack years: 30.00 Types: Cigarettes Quit date: 11/04/2013 Years since quittin.6 Smokeless tobacco: Never Vaping Use Vaping Use: Never used Substance Use Topics Alcohol use: Yes Comment: wine cool every once in a while Drug use: No Family History: FAMILY HISTORY Problem Relation Age of Onset Diabetes Mother Cervical Cancer Sister Diabetes Brother Cancer Maternal Grandmother Stomach CA Breast Cancer Maternal Aunt 50's ROS: A complete review of systems was performed. All systems negative other than those mentioned inHPI. Physical Exam: Vitals: LMP 04/27/2016 BP 94/61 (BP Site: Right Arm, BP Position: Sitting, BP Cuff Size: Regular Adult) Pulse 69 Ht 162.6 cm (5' 4) Wt 90.7 kg (200 lb) LMP 04/27/2016 BMI 34.33 kg/m General appearance: no acute distress. Neurological Exam: MSE: Alert and oriented to person, place, and time. Speech is fluent without dysarthria or aphasia.Recall is intact to recent and remote events. Attention and concentration are intact. Fund of knowledge is intact. CN: Pupils equally round and reactive to light. Extraoccular muscles intact. Visual carrera full. R > L ptosis. Facial sensation deferred d/t covid. Facial muscles symmetric. Hearing intact to voice. Tongue/palate deferred d/t covid. Shoulder shrug 5/5 bilaterally. MSK: Normal bulk and tone throughout. Deltoid Triceps Biceps Wrist ext. Hand intrinsic Hip flexion Knee flexion Knee Ext. Boris. Flex Pl. flex Right 5 5 5 5 5 5 5 5 5 5 Left 5 5 5 5 5 5 5 5 5 5 Sensation: Intact to light touch, decreased to PP to knees bilateral legs. Reflexes: R L Biceps 2 2 Triceps 2 2 Brachioradialis 2 2 Patellar 2 2 Achilles 0 0 Cerebellar: Intact coordination. Throughout. Gait: Normal. Labs: WBC Date Value Ref Range Status 05/22/2021 7.07 3.70 - 11.00 k/uL Final Hemoglobin Date Value Ref Range Status 05/22/2021 13.1 11.5 - 15.5 g/dL Final Hematocrit Date Value Ref Range Status 05/22/2021 42.9 36.0 - 46.0 % Final MCV Date Value Ref Range Status 05/22/2021 92.5 80.0 - 100.0 fL Final Platelet Count Date Value Ref Range Status 05/22/2021 148 (L) 150 - 400 k/uL Final Sodium Date Value Ref Range Status 03/26/2022 140 136 - 144 mmol/L Final Potassium Date Value Ref Range Status 03/26/2022 4.0 3.7 - 5.1 mmol/L Final Chloride Date Value Ref Range Status 03/26/2022 101 97 - 105 mmol/L Final CO2 Date Value Ref Range Status 03/26/2022 26 22 - 30 mmol/L Final BUN Date Value Ref Range Status 03/26/2022 27 (H) 7 - 21 mg/dL Final Creatinine Date Value Ref Range Status 03/26/2022 0.90 0.58 - 0.96 mg/dL Final Calcium, Total Date Value Ref Range Status 03/26/2022 9.2 8.5 - 10.2 mg/dL Final Albumin Date Value Ref Range Status 05/22/2021 4.3 3.9 - 4.9 g/dL Final Protein, Total Date Value Ref Range Status 05/22/2021 7.5 6.3 - 8.0 g/dL Final AST Date Value Ref Range Status 05/22/2021 19 13 - 35 U/L Final ALT Date Value Ref Range Status 05/22/2021 23 7 - 38 U/L Final Alkaline Phosphatase Date Value Ref Range Status 05/22/2021 67 34 - 123 U/L Final Bilirubin, Total Date Value Ref Range Status 05/22/2021 0.3 0.2 - 1.3 mg/dL Final Anion Gap Date Value Ref Range Status 03/26/2022 13 9 - 18 mmol/L Final TSH Date Value Ref Range Status 03/26/2022 0.107 (L) 0.270 - 4.200 mIU/L Final Free T4 Date Value Ref Range Status 03/26/2022 2.1 (H) 0.9 - 1.7 ng/dL Final Hemoglobin A1C Date Value Ref Range Status 03/26/2022 10.4 (H) 4.3 - 5.6 % Final Comment: [place] [employer] guidelines indicate that patients with HgbA1c in the range 5.7-6.4% are at increased risk for development of diabetes, and intervention by lifestyle modification may be beneficial. HgbA1c greater or equal to 6.5% is considered diagnostic of diabetes. CRP Date Value Ref Range Status 01/17/2019 0.5 <0.9 mg/dL Final Imaging: Other studies: Assessment/Plan : Seropositive occular MG; R>L ptosis only, no other mg symptoms. Comorbid poorly controlled DM last A1C 10.4; diabetic retinopathy; diabetic neuropathy (on gpn 300 mg bid) hypothyroidism. Start mestinon 60 mg tid. I asked patient to reach out to me in 2 weeks to report on response. Ct chest to r/o thymoma No prednisone d/t severe DM She is currently working w/ endocrine to improved control Advised on medications to avoid w/ MG RTC 6 weeks, will decide on need for steroid sparing immune suppressant based on clinical response to mestinon. documented in this encounterK[facility] History of Present illness Narrative* Sarina Adams MD - 06/26/2022 3:40 PM EDT This note was created using Teler[employer]. Subjective Samantha Romero is a 56 year old female. Patient presents with: F/U 3 Month SUBJECTIVE: Samantha Romero is a 56 year old year old lady here today for 3 month follow up appointment for reviewof medical conditions. Doing well with endocrinology--sugars better. Using Freestyle Taylor. Does like using SSI. Eye issues a little better but not much. Still bothersome. Will see neurology. Will see Dr. Douglas next week. Dysuria comes and goes. Has followed with [facility]. noted increased swelling more on left leg and foot the past 1.5 weeks. Does have the numbness in feet PAST MEDICAL HISTORY Diagnosis Date COVID-19 07/06/2021 HTN (hypertension) Hyperlipidemia 04/05/2014 Hypothyroid 04/19/2014 Kidney stone on left side 04/12/2014 OA (osteoarthritis) of hip, bilateral 04/04/2014 Type II or unspecified type diabetes mellitus without mention of complication, uncontrolled 04/05/2014 Current Outpatient Medications Medication Sig blood sugar diagnostic (BLOOD GLUCOSE TEST) test strip Test blood sugar(s) 4 times daily. Dx: Type 2 DM - Controlled E11.9 Insulin: Yes Lancets lancets Test blood sugar(s) 4 times daily. Dx: E11.9 Insulin: Yes rosuvastatin (CRESTOR) 10 mg tablet Take 1 tablet by mouth daily at bedtime. flash glucose sensor (FREESTYLE TAYLOR 14 DAY SENSOR) kit Use to check blood sugar 4 times daily. Please give 2 sensors per refill gabapentin (NEURONTIN) 300 mg capsule Take 1 capsule by mouth twice daily for 30 days. insulin degludec (TRESIBA FLEXTOUCH U-100) 100 unit/mL (3 mL) injection pen Inject 62 Units subcutaneously daily at bedtime. dulaglutide (TRULICITY) 3 mg/0.5 mL pen injector Inject 3 mg subcutaneously one time a week. insulin aspart U-100 (NOVOLOG FLEXPEN U-100 INSULIN) 100 unit/mL (3 mL) Inject 20 units with meals three times daily PLUS sliding scale SS#2 as based on a pre meal blood sugar. ~80 units daily meloxicam (MOBIC) 15 mg tablet Take 1 tablet by mouth once daily as needed for pain. With food. Insulin [place], Disposable, (BD ULTRAFINE III MINI PEN) 31 gauge x 3/16 inject 1 subcutaneously four times a day levothyroxine (SYNTHROID) 150 mcg tablet Take 1 tablet by mouth daily before breakfast. hydrOXYzine HCl (ATARAX) 25 mg tablet Take 1-2 tablets by mouth at bedtime as needed. empagliflozin (JARDIANCE) 25 mg tablet Take 1 tablet by mouth daily with breakfast. dicyclomine (BENTYL) 10 mg capsule Take 1 capsule by mouth before meals and at bedtime. for abdominal pain blood sugar diagnostic (FREESTYLE LITE STRIPS) test strip Test blood sugar(s) 4 times daily. Dx: Other DM Code E11.40 Insulin: Yes hydroCHLOROthiazide 12.5 mg capsule Take 1 capsule by mouth once daily. Fenofibrate (LOFIBRA) 160 mg tablet Take 1 tablet by mouth once daily. lisinopril 2.5 mg tablet Take 1 tablet by mouth once daily. fluticasone (FLONASE) 50 mcg/actuation nasal spray Use 1-2 Sprays in each nostril once daily as needed. Vitamin E, dl, acetate, (VITAMIN E) 400 unit capsule Take 400 Units by mouth once daily. omega-3 fatty acids (FISH OIL CONCENTRATE ORAL) Take by mouth. Miscellaneous Medical Supply (BLOOD PRESSURE CUFF) 1 Each as needed. Blood pressure Monitor and Cuff, use as directed. Dx: I10 Hypertension flash glucose scanning reader (HeyLets TAYLOR 14 DAY READER) Use to check blood sugar 4 times daily hydrocortisone 2.5 % cream Apply 1 application to affected area twice daily. Location: hands and chest clotrimazole-betamethasone (LOTRISONE) cream Apply 1 application to affected area twice daily. X 2 weeks. Humphrey-3 Fatty Acids-Vitamin E 1,000 mg cap Take 1 capsule by mouth twice daily. EYE DROPS DISPENSER [facility] cystene estradiol (ESTRACE) 0.01 % (0.1 mg/gram) vaginal cream Use 3 g vaginally two times a week. No current facility-administered medications for this visit. Review of Systems Objective BP 118/60 Pulse 81 Temp 36.3 C (97.3 F) (Temporal Artery) Resp 18 Wt 92 kg (202 lb 12.8 oz) LMP 04/27/2016 SpO2 97% BMI 34.81 kg/m Physical Exam Constitutional: Appearance: Normal appearance. HENT: Head: Normocephalic. Eyes: Conjunctiva/sclera: Conjunctivae normal. Cardiovascular: Rate and Rhythm: Normal rate and regular rhythm. Heart sounds: Normal heart sounds. Pulmonary: Effort: Pulmonary effort is normal. Breath sounds: Normal breath sounds. Musculoskeletal: Right lower le+ Pitting Edema present. Left lower le+ Pitting Edema present. Skin: General: Skin is warm and dry. Neurological: General: No focal deficit present. Mental Status: She is alert and oriented to person, place, and time. Psychiatric: Mood and Affect: Mood normal. Behavior: Behavior normal. Thought Content: Thought content normal. Judgment: Judgment normal. Hemoglobin A1C (%) Date Value 03/26/2022 10.4 04/10/2021 8.3 10/25/2020 10.3 04/10/2020 8.5 10/06/2019 10.7 06/07/2019 10.8 Assessment and Plan Encounter Diagnosis ICD-10-CM 1. Myasthenia gravis (HCC) G70.00 2. Type 2 diabetes mellitus with diabetic neuropathy, with long-term current use of insulin (HCC) E11.40 Z79.4 3. Bilateral leg edema R60.0 worse on left 4. Class 1 obesity due to excess calories without serious comorbidity with body mass index (BMI) of34.0 to 34.9 in adult E66.09 Z68.34 5. Dysuria R30.0 Follow up with gynecology Above issues addressed with patient. Patient involved in shared decision making for management of medical issues. History and medications reviewed. Epic updated as needed Refills and/or prescriptions taken care of and meds adjusted as indicated after reviewed history, exam and labs. Health Maintenance reviewed. Updated record and/or ordered tests as recorded. Encouraged on efforts at healthy diet and regular exercise and adequate sleep. Sugar control improved. Continue working with endocrinology. Needs to keep working on diet and exercise with lifestyle changes for effective weight loss as wellas control of DM, and control of BP and lipids. Encouraged keeping appointments with ophthalmollogy/neurology so may be treated for myasthenia gravis. Further evaluation and treatment as indicated. Sarina Adams MD documented in this encounterK[facility]09-12-2022 History of Present illness Narrative* Ericka Zamora, OD - 06/15/2022 12:52 PM EDT 1. 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 Encouraged patient to call the officeimmediately with any changes to vision or visual concerns. Advised to not wait until the next schedu led exam. Non central-involving macular edema but other -not affecting vision -will follow-up in 3 months for repeat mac OCT/dilation Sooner as needed 2. Pseudophakia of both eyes Doing well-continue with OTC readers 3. Ptosis of right eyelid Patient diagnosed with Myasthenia Gravis following antibody testing +ICE Test in office with me Continue follow-up with Dr. Warner following neuromuscular consult Discussed if patient has difficulty breathing/swallowing to go to nearest ER Follow-up in 3 months Ericka Zamora, JUVENTINO June 15, 2022 12:52 PM documented in this encounterK[facility]09-12-2022 Miscellaneous Notes* Telephone Encounter - Jarrod Buckley Ma - 06/15/2022 10:26 AM EDT LIDIA: 04/01/2022 sensor Last refill: 06/11/2021 QTY: 2 Refills: 5 Crestor Last refill: 05/22/2021 QTY: 30 Refills: 11 documented in this encounterK[facility]09-12-2022 Miscellaneous Notes* Telephone Encounter - Jarrod Buckley Ma - 06/15/2022 9:36 AM EDT LIDIA: 04/01/2022 lancets Last refill: 01/14/2021 QTY: 100 Refills: 11 documented in this encounterK[facility]09-06-2022 Miscellaneous Notes* Telephone Encounter - Maylin Delaney LPN - 06/09/2022 4:42 PM EDT Last seen pcp 04/01/22. Next appt is 06/26/22. * Telephone Encounter - Nadine Hinkle - 06/09/2022 1:06 PM EDT Patient has been identified by name and date of : Yes Requested Prescriptions Pending Prescriptions Disp Refills gabapentin (NEURONTIN) 300 mg capsule 60 capsule 5 Sig: Take 1 capsule by mouth twice daily for 180 days. RX INSTRUCTIONS: Patient aware RX will be sent to pharmacy. No need to notify patient. Nadine Hinkle documented in this encounterK[facility]08-30-2022 History of Present illness Narrative* Radha Warner MD - 06/02/2022 12:30 PM EDT Patient states that the right eye has been droopy for a long time. Patient states that it is affecting vision on a daily basis. Was referred for this problem by Dr. Zamora. A/P: Right upper lid ptosis x 01/21/2022 Thinks she may have noticed it suddenly Patient saw Dr. Zamora 01/30/22 + ACHR ab 03/26/22 -- Dr. Adams acknowledged receipt of lab results Patient thinks she has appt with neurology in nov S/p intraocular lens Dr. Mcmillan 05/29/21 and 06/12/21 + Diabetes mellitus On oxygen Referred by Dr. Zamora Feels that right eyelid blocks vision and sees better when lifted especially when driving and reading H/o thyroid issues Intermittent double vision No issues eating/swallowing No H/o contact lens use Exam: Brow ptosis Tr injection both eyes No skin on lashes AL: LF: Jazzy: 19, 19, @96 Margin to reflex distance 1: 0, 4 Ptosis visual field diff: 25, 5 Pupils symmetric Extraocular muscles full both eyes no diplopia No eyelid edema/erythema Sle: Cornea clear both eyes , no Superficial punctate keratopathy (SPK) No a/c reaction both eyes Iris within normal limits both eyes Patient on O2 chronic; 2/2 covid + ACHR ab testing; recc patient see neurology --patient has appt in Oct -->try to move up May or may not improve ptosis If not return to clinic for reevaluation after starting treatment Discussed if patient has difficulty breathing/swallowing to go to nearest ER F/u after neurology if ptosis not resolved 2. Thyroid issues Prominent eye configuration Last labs 03/26/22 T4 elevated, TSH low-->patient had adjustment of meds Consider endo referral Graves and MG can be related 3. Diabetes mellitus Hag1c 10.4 -->needs better glucose control Consider endocrinology The documentation for this note was completed by Belén Jacques APRN, KENDAL acting as a scribe for Radha Warner MD. 06/02/2022 1:04 PM. I have confirmed and edited as necessary the relevant ophthalmic history, ROS, and the neuro exam findings as obtained by others. I have seen and examined Samantha Romero. I have discussed the case and the management of this patient's care with the Resident/Fellow, if applicable. I also have reviewed and agree with the assessment and plan as stated above and agree withall of its relevant components. I, Radha Warner MD, personally performed the services described in this documentation. All medical record entries made by the scribe were at my direction and in my presence. I have reviewed the chart and discharge instructions (if applicable) and agree that the record reflects my personal performance and is accurate and complete. Electronically Signed: Radha Warner MD, June 02, 2022 1:04 PM. documented in this encounterK[facility]08-09-2022 Miscellaneous Notes* Telephone Encounter - Sarina Adams MD - 05/12/2022 10:26 PM EDT Okayed * Telephone Encounter - Jaylyn Vazquez LPN - 05/12/2022 11:59 AM EDT Patient has been identified by name and date of : Yes Patient phones for refill(s): Requested Prescriptions Pending Prescriptions Disp Refills meloxicam (MOBIC) 15 mg tablet 30 tablet 1 Sig: Take 1 tablet by mouth once daily as needed for pain. With food. Date of last office visit in primary care: 04/01/2022 3 month follow-up: 06/26/2022 Last 2 Encounter Wt Readings: Date: Wt: 04/01/2022 86.2 kg (190 lb) 02/25/2022 86.1 kg (189 lb 12.8 oz) Previous labs/tests for medication: Not applicable Please advise. Thank you. Jaylyn Vazquez LPN * Telephone Encounter - Brooke Price Pss - 05/12/2022 11:50 AM EDT Pharmacy verified in Epic Patient has been identified by name and date of : Yes Patient aware RX will be sent to pharmacy. No need to notify patient. Patient phones for refill(s): Requested Prescriptions Pending Prescriptions Disp Refills meloxicam (MOBIC) 15 mg tablet 30 tablet 1 Sig: Take 1 tablet by mouth once daily as needed for pain. With food. Date of last office visit : 04/01/2022 Date of next office visit : 06/26/2022 Last 2 Encounter Wt Readings: Date: Wt: 04/01/2022 86.2 kg (190 lb) 02/25/2022 86.1 kg (189 lb 12.8 oz) Please advise. Brooke Price Pss documented in this encounterKettering [facility]07-29-2022 Miscellaneous Notes* Telephone Encounter - Maylin Delaney LPN - 05/01/2022 11:09 AM EDT Last appt with pcp 04/01/22. Next is 06/26/22. * Telephone Encounter - Katherin Rothman [facility] - 04/30/2022 4:46 PM EDT Patient has been identified by name and date of : Yes Pending Prescriptions Disp Refills PEN NEEDLE, DIABETIC 31 GAUGE X 3/16 200 Each 3 Sig: inject 1 subcutaneously four times a day YUKO: No RX INSTRUCTIONS: Patient aware RX will be sent to pharmacy. No need to notify patient. Katherin [employer] [facility] documented in this encounterK[facility]07-11-2022 Miscellaneous Notes* Telephone Encounter - Brooke Be PA-C - 04/13/2022 11:46 AM EDT Script for oxygen printed. Please FAX with oximetry 04/02/2022 Thanks, Frida * Telephone Encounter - Gisella Duque RN - 04/13/2022 11:41 AM EDT Patient requesting order for oxygen be faxed to [facility] in [place]. 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 documented in this encounterK[facility]06-29-2022 History of Present illness Narrative* Sarina Adams MD - 04/01/2022 5:38 PM EDT This note was created using [employer]. Subjective Samantha Romero is a 56 year old female. Patient presents with: Follow Up SUBJECTIVE: Samantha Romero is a 56 year old year old lady here today for follow up appointment for review of medical conditions. Eye still bothering her Headaches still. Tylenol helps some. Sugars doing better. Occasional over 300; sometimes 86 to 90s. PAST MEDICAL HISTORY Diagnosis Date COVID-19 07/06/2021 HTN (hypertension) Hyperlipidemia 04/05/2014 Hypothyroid 04/19/2014 Kidney stone on left side 04/12/2014 OA (osteoarthritis) of hip, bilateral 04/04/2014 Type II or unspecified type diabetes mellitus without mention of complication, uncontrolled 04/05/2014 Current Outpatient Medications Medication Sig insulin lispro (HUMALOG KWIKPEN) 100 unit/mL inject 8 units subcutaneously three times a day beforemeals (Patient taking differently: 20 unit(s) before meals ) hydrOXYzine HCl (ATARAX) 25 mg tablet Take 1-2 tablets by mouth at bedtime as needed. meloxicam (MOBIC) 15 mg tablet Take 1 tablet by mouth once daily as needed for pain. With food. empagliflozin (JARDIANCE) 25 mg tablet Take 1 tablet by mouth daily with breakfast. dicyclomine (BENTYL) 10 mg capsule Take 1 capsule by mouth before meals and at bedtime. for abdominal pain hydroCHLOROthiazide 12.5 mg capsule Take 1 capsule by mouth once daily. Fenofibrate (LOFIBRA) 160 mg tablet Take 1 tablet by mouth once daily. lisinopril 2.5 mg tablet Take 1 tablet by mouth once daily. dulaglutide (TRULICITY) 1.5 mg/0.5 mL pen injector Inject 1.5 mg subcutaneously one time a week. fluticasone (FLONASE) 50 mcg/actuation nasal spray Use 1-2 Sprays in each nostril once daily as needed. gabapentin (NEURONTIN) 300 mg capsule Take 1 capsule by mouth twice daily for 180 days. insulin degludec (TRESIBA FLEXTOUCH U-100) 100 unit/mL (3 mL) injection pen Inject 52 Units subcutaneously daily at bedtime. Vitamin E, dl, acetate, (VITAMIN E) 400 unit capsule Take 400 Units by mouth once daily. levothyroxine (SYNTHROID) 175 mcg tablet Take 1 tablet by mouth once daily. Take on empty stomach. For Thyroid. omega-3 fatty acids (FISH OIL CONCENTRATE ORAL) Take by mouth. rosuvastatin (CRESTOR) 10 mg tablet Take 1 tablet by mouth daily at bedtime. hydrocortisone 2.5 % cream Apply 1 application to affected area twice daily. Location: hands and chest estradiol (ESTRACE) 0.01 % (0.1 mg/gram) vaginal cream Use 3 g vaginally two times a week. clotrimazole-betamethasone (LOTRISONE) cream Apply 1 application to affected area twice daily. X 2 weeks. Humphrey-3 Fatty Acids-Vitamin E (FISH OIL) 1,000 mg cap Take 1 capsule by mouth twice daily. blood sugar diagnostic (FREESTYLE LITE STRIPS) test strip Test blood sugar(s) 4 times daily. Dx: Other DM Code E11.40 Insulin: Yes flash glucose sensor (FREESTYLE TAYLOR 14 DAY SENSOR) kit Use to check blood sugar 4 times daily. Please give 2 sensors per refill EYE DROPS [facility] cystene flash glucose sensor (FREESTYLE TAYLOR 14 DAY SENSOR) kit Use to check blood sugar 4 times daily Miscellaneous Medical Supply (BLOOD PRESSURE CUFF) 1 Each as needed. Blood pressure Monitor and Cuff, use as directed. Dx: I10 Hypertension Insulin [place], Disposable, (BD ULTRAFINE III MINI PEN) 31 gauge x 3/16 inject 1 subcutaneously four times a day flash glucose scanning reader (FREESTYLE TAYLOR 14 DAY READER) Use to check blood sugar 4 times daily Lancets lancets Test blood sugar(s) 3 times daily. Dx: Type 2 DM - Uncontrolled E11.65 Insulin: Yes No current facility-administered medications for this visit. Review of Systems Objective BP 102/68 Pulse 84 Wt 86.2 kg (190 lb) LMP 04/27/2016 SpO2 95% BMI 32.61 kg/m Physical Exam Constitutional: Appearance: Normal appearance. HENT: Head: Normocephalic. Eyes: Conjunctiva/sclera: Conjunctivae normal. Comments: Right lid ptosis Cardiovascular: Rate and Rhythm: Normal rate and regular rhythm. Heart sounds: Normal heart sounds. Comments: little more on left than right Pulmonary: Effort: Pulmonary effort is normal. Breath sounds: Normal breath sounds. Musculoskeletal: Right lower le+ Edema present. Left lower le+ Edema present. Skin: General: Skin is warm and dry. Neurological: General: No focal deficit present. Mental Status: She is alert and oriented to person, place, and time. Psychiatric: Mood and Affect: Mood normal. Behavior: Behavior normal. Thought Content: Thought content normal. Judgment: Judgment normal. Component Latest Ref Rng & Units 05/22/2021 03/26/2022 WBC 3.70 - 11.00 k/uL 7.07 RBC 3.90 - 5.20 m/uL 4.64 Hemoglobin 11.5 - 15.5 g/dL 13.1 Hematocrit 36.0 - 46.0 % 42.9 MCV 80.0 - 100.0 fL 92.5 MCH 26.0 - 34.0 pG 28.2 MCHC 30.5 - 36.0 g/dL 30.5 RDW-CV 11.5 - 15.0 % 13.8 Platelet Count 150 - 400 k/uL 148 (L) MPV 9.0 - 12.7 fL 11.9 Neut% % 67.3 Abs Neut (ANC) 1.45 - 7.50 k/uL 4.73 Lymph% % 21.9 Abs Lymph 1.00 - 4.00 k/uL 1.55 [place]% % 6.9 Abs [place] <0.87 k/uL 0.49 Eosin% % 3.5 Abs Eosin <0.46 k/uL 0.25 Baso% % 0.4 Abs Baso <0.11 k/uL 0.03 Nucleated Reds 0 /100 WBC 0.0 Absolute nRBC <0.01 k/uL <0.01 Diff Type Auto Diff Protein, Total 6.3 - 8.0 g/dL 7.5 Albumin 3.9 - 4.9 g/dL 4.3 Calcium 8.5 - 10.2 mg/dL 9.6 9.2 Bilirubin, Total 0.2 - 1.3 mg/dL 0.3 Alkaline Phosphatase 34 - 123 U/L 67 AST 13 - 35 U/L 19 Glucose 74 - 99 mg/dL 281 (H) 169 (H) BUN 7 - 21 mg/dL 38 (H) 27 (H) Creatinine 0.58 - 0.96 mg/dL 1.18 (H) 0.90 Sodium 136 - 144 mmol/L 137 140 Potassium 3.7 - 5.1 mmol/L 4.8 4.0 Chloride 97 - 105 mmol/L 101 101 CO2 22 - 30 mmol/L 26 26 Anion Gap 9 - 18 mmol/L 10 13 ALT 7 - 38 U/L 23 eGFR- 58 eGFR-All Other Races . 48 eGFR >=60 mL/min/1.73m 75 Hemoglobin A1C 4.3 - 5.6 % 10.4 (H) Estimated Average Glucose mg/dL 252 Acetylcholine Recept/Binding, Qual Negative Positive (A) Acetylcholine Recept/Binding <0.21 nmol/L 3.36 (H) MUSK Antibody 0.00 - 0.02 nmol/L 0.00 TSH 0.270 - 4.200 mIU/L 0.107 (L) Free T4 0.9 - 1.7 ng/dL 2.1 (H) Free T3 2.3 - 4.1 pg/mL 2.9 Hemoglobin A1C (%) Date Value 03/26/2022 10.4 04/10/2021 8.3 10/25/2020 10.3 04/10/2020 8.5 10/06/2019 10.7 06/07/2019 10.8 Assessment and Plan ASSESSMENT/PLAN: 1. Myasthenia gravis (HCC) - ICD9: 358.00, ICD10: G70.00 (primary diagnosis) Referral and further testing as discussed with patient. Has consult placed with neuro-ophthlamology. Further evaluation and treatment as indicated. - CT CHEST WO IVCON 2. Acquired hypothyroidism - ICD9: 244.9, ICD10: E03.9 - Instructed patient on importance of taking on an empty stomach either first thing in the morning or at bedtime. TSH suppressed. Decrease levothyroxine to 150mcg daily Adjust dose as indicated by labs and symptoms. - TSH BLD - T4 FREE/FREE THYROX - T3 FREE BLD 3. 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) - ICD9: 250.50, 362.05, 362.07, ICD10: E11.3319 Continue present management. Needs to keep working on diet and exercise with lifestyle changes for effective weight loss. - TRESIBA FLEXTOUCH U-100 INSULIN 100 UNIT/ML (3 ML) SUBCUTANEOUS PEN - HGB A1C 4. Hypertension--well controlled. Continue present management. 5. Thrombocytopenia--follow up with next labs. CBC and platelets. Further evaluation and treatment as indicated. Sarina Adams MD documented in this encounterK[facility]22 Miscellaneous Notes* Telephone Encounter - Sarina Adams MD - 03/27/2022 6:45 PM EDT Okayed * Telephone Encounter - Fátima Velasquez LPN - 03/27/2022 10:16 AM EDT Patient phones requesting refills as follows: Pending Prescriptions Disp Refills INSULIN LISPRO (U-100) 100 UNIT/ML SUBCUTANEOUS PEN 60 mL Sig: inject 8 units subcutaneously three times a day before meals YUKO: Yes LIDIA-01/30/22 Labs-03/26/22 NOV-04/01/22 Please review and advise. Fátima Velasquez LPN documented in this encounterK[facility]06-23-2022 Miscellaneous Notes* Telephone Encounter - Maylin Delaney LPN - 03/26/2022 2:24 PM EDT Labs are in process. Pt has appt with pcp 04/01/22. * Telephone Encounter - Maylin Delaney LPN - 03/26/2022 10:14 AM EDT Pt has a pulmonary test today. Message left to she can do labs today also. * Telephone Encounter - Sarina Adams MD - 03/25/2022 7:04 PM EDT Have patient get labs done since not ABN is required. Should be covered then as far as I am concerned. * Telephone Encounter - Maylin Delaney LPN - 03/25/2022 2:06 PM EDT [facility] says they can't really answer this question. No ABN was noted when filing. There wouldn't be anyreason why they would not be covered. They note pt can check with her insurance first if she would like. * Telephone Encounter - Sarina Adams MD - 03/25/2022 1:07 PM EDT If [facility] cannot help, is there someone else who can determine whether insurance will cover testing? Wondering about just doing testing and going from there given patient with ongoing symptoms. Otherwise, referral to neurology then go from there. * Telephone Encounter - Maylin Delaney LPN - 02/10/2022 10:17 AM EDT Asking [facility] dept to review. * Telephone Encounter - Sarina Adams MD - 02/09/2022 6:[address] Zamora requested I facilitate evaluation for myasthenia gravis given +ice test. There was an alert regarding cost of test and patient being responsible for bill if not covered--she would not be able to afford the out of pocket expense, but she needs myasthenia gravis ruled out. Is there any way to make sure insurance will cover the cost or that she will get help with cost of testing id needed? Or would it be best to refer to neurology first and let them order labs? I did order the test to check if can make sure covered. documented in this encounterK[facility]06-22-2022 Miscellaneous Notes* Telephone Encounter - Vanessa Hinkle - 03/25/2022 8:08 AM EDT Patient completing labs 03/26 and has appt. With PCP on 04/01. Unable to close this as medications are attached. * Telephone Encounter - Maylin Delaney LPN - 03/24/2022 2:52 PM EDT Last seen pcp 01/30/22. Please call pt to arrange lab appt and follow up with pcp or CULTURIST. * Telephone Encounter - Corina Hinkle - 03/24/2022 2:24 PM EDT Patient has been identified by name and date of : Yes Pending Prescriptions Disp Refills TRESIBA FLEXTOUCH U-100 INSULIN 100 UNIT/ML (3 ML) SUBCUTANEOUS PEN 45 mL 1 Sig: Inject 52 Units subcutaneously daily at bedtime. YUKO: No RX INSTRUCTIONS: Patient aware RX will be sent to pharmacy. No need to notify patient. Corina Hinkle documented in this encounterK[facility]06-08-2022 Miscellaneous Notes* Telephone Encounter - Sarina Adams MD - 03/11/2022 7:29 PM EDT Okayed * Telephone Encounter - Alena Napier LPN - 03/11/2022 1:49 PM EDT Patient has been identified by name and date of : Yes Patient phones for refill(s): Pending Prescriptions Disp Refills HYDROXYZINE HCL 25 MG TABLET 30 tablet 3 Sig: Take 1-2 tablets by mouth at bedtime as needed. YUKO: No MELOXICAM 15 MG TABLET 30 tablet 1 Sig: Take 1 tablet by mouth once daily as needed for pain. With food. YUKO: No Date of last office visit in primary care: 01/30/22 Last 2 Encounter Wt Readings: Date: Wt: 02/25/2022 86.1 kg (189 lb 12.8 oz) 12/09/2021 87.6 kg (193 lb 3.2 oz) Previous labs/tests for medication: Not applicable Please advise. Thank you. Alena Napier LPN documented in this encounterK[facility]06-08-2022 Miscellaneous Notes* Telephone Encounter - Alena Napier LPN - 03/11/2022 1:50 PM EDT This request is being addressed in another encounter. documented in this encounterK[facility]05-25-2022 History of Present illness Narrative* Michael Haro APRN.KENDAL - 02/25/2022 9:17 AM EDT Images from the original note were not included. Subjective HPI Nontoxic-appearing female presents urgent care chief plaint laceration fifth digit. Patient states she was trimming her nails this morning when she accidentally cut the distal aspect of fifth toe left. Patient states area was bleeding she was concerned that she may need stitches. Denies any other in juries. Patient states she is a diabetic. She did cleanse area prior to arrival. Denies any new numbness no new tingling. Denies any significant pain. Patient states she does have neuropathy. [facility]is [facility] pod[facility]. Past medical history prescription medication use allergies reviewed. .Patient presents with: left foot little toe laceration: happened today at 5:30 am PAST MEDICAL HISTORY Diagnosis Date COVID-19 07/06/2021 HTN (hypertension) Hyperlipidemia 04/05/2014 Hypothyroid 04/19/2014 Kidney stone on left side 04/12/2014 OA (osteoarthritis) of hip, bilateral 04/04/2014 Type II or unspecified type diabetes mellitus without mention of complication, uncontrolled 04/05/2014 PAST SURGICAL HISTORY Procedure Laterality Date ESWL 04/25/14 kidney stones ESWL 05/16/14 kidney stones. PAST SURGICAL HISTORY OF c-sections x 2 PAST SURGICAL HISTORY OF appendectomy PAST SURGICAL HISTORY OF tubal ligation REMV CATARACT EXTRACAP,INSERT LENS Left 06/12/2021 Monofocal IOL 17.5 D XCAPSL CTRC RMVL INSJ IO LENS PROSTH W/O ECP Right 05/29/2021 ALLERGIES Metformin, Oxycodone, and Percocet [Oxycodone-Acetaminophen] MEDICATIONS empagliflozin (JARDIANCE) 25 mg tablet Take 1 tablet by mouth daily with breakfast. dicyclomine (BENTYL) 10 mg capsule Take 1 capsule by mouth before meals and at bedtime. for abdominal pain blood sugar diagnostic (FREESTYLE LITE STRIPS) test strip Test blood sugar(s) 4 times daily. Dx: Other DM Code E11.40 Insulin: Yes meloxicam (MOBIC) 15 mg tablet Take 1 tablet by mouth once daily as needed for pain. With food. flash glucose sensor (FREESTYLE TAYLOR 14 DAY SENSOR) kit Use to check blood sugar 4 times daily. Please give 2 sensors per refill hydroCHLOROthiazide 12.5 mg capsule Take 1 capsule by mouth once daily. Fenofibrate (LOFIBRA) 160 mg tablet Take 1 tablet by mouth once daily. lisinopril 2.5 mg tablet Take 1 tablet by mouth once daily. dulaglutide (TRULICITY) 1.5 mg/0.5 mL pen injector Inject 1.5 mg subcutaneously one time a week. fluticasone (FLONASE) 50 mcg/actuation nasal spray Use 1-2 Sprays in each nostril once daily as needed. gabapentin (NEURONTIN) 300 mg capsule Take 1 capsule by mouth twice daily for 180 days. insulin degludec (TRESIBA FLEXTOUCH U-100) 100 unit/mL (3 mL) injection pen Inject 52 Units subcutaneously daily at bedtime. insulin lispro (HUMALOG KWIKPEN INSULIN) 100 unit/mL Inject 8 Units subcutaneously three times daily before meals. Vitamin E, dl, acetate, (VITAMIN E) 400 unit capsule Take 400 Units by mouth once daily. flash glucose sensor (FREESTYLE TAYLOR 14 DAY SENSOR) kit Use to check blood sugar 4 times daily levothyroxine (SYNTHROID) 175 mcg tablet Take 1 tablet by mouth once daily. Take on empty stomach. For Thyroid. omega-3 fatty acids (FISH OIL CONCENTRATE ORAL) Take by mouth. rosuvastatin (CRESTOR) 10 mg tablet Take 1 tablet by mouth daily at bedtime. Miscellaneous Medical Supply (BLOOD PRESSURE CUFF) 1 Each as needed. Blood pressure Monitor and Cuff, use as directed. Dx: I10 Hypertension Insulin [place], Disposable, (BD ULTRAFINE III MINI PEN) 31 gauge x 3/16 inject 1 subcutaneously four times a day flash glucose scanning reader (FREESTYLE TAYLOR 14 DAY READER) Use to check blood sugar 4 times daily hydrocortisone 2.5 % cream Apply 1 application to affected area twice daily. Location: hands and chest hydrOXYzine HCl (ATARAX) 25 mg tablet Take 1-2 tablets by mouth at bedtime as needed. Lancets lancets Test blood sugar(s) 3 times daily. Dx: Type 2 DM - Uncontrolled E11.65 Insulin: Yes clotrimazole-betamethasone (LOTRISONE) cream Apply 1 application to affected area twice daily. X 2 weeks. [place]-3 Fatty Acids-Vitamin E (FISH OIL) 1,000 mg cap Take 1 capsule by mouth twice daily. EYE DROPS [facility] cystene estradiol (ESTRACE) 0.01 % (0.1 mg/gram) vaginal cream Use 3 g vaginally two times a week. FAMILY HISTORY Problem Relation Age of Onset Diabetes Mother Cervical Cancer Sister Diabetes Brother Cancer Maternal Grandmother Stomach CA Breast Cancer Maternal Aunt 50's Social History Tobacco Use Smoking status: Former Smoker Packs/day: 1.00 Years: 30.00 Pack years: 30.00 Types: Cigarettes Quit date: 11/04/2013 Years since quittin.3 Smokeless tobacco: Never Used Vaping Use Vaping Use: Never used Substance Use Topics Alcohol use: Yes Comment: wine cool every once in a while Drug use: No BP 112/72 Pulse 84 Temp 36.8 C (98.2 F) (Tympanic) Resp 18 Wt 86.1 kg (189 lb 12.8 oz) LMP 04/27/2016 SpO2 98% BMI 32.58 kg/m Review of Systems Constitutional: Negative for chills, fever and malaise/fatigue. HENT: Negative for congestion, ear discharge, ear pain, sinus pain and sore throat. Eyes: Negative for blurred vision, pain, discharge and redness. Respiratory: Negative for cough, hemoptysis, sputum production, shortness of breath, wheezing and stridor. Cardiovascular: Negative for chest pain. Gastrointestinal: Negative for abdominal pain, diarrhea, nausea and vomiting. Musculoskeletal: Negative for joint pain and myalgias. Skin: Negative for itching and rash. Neurological: Negative for dizziness and headaches. Objective Physical Exam Constitutional: General: She is not in acute distress. Appearance: She is not diaphoretic. HENT: Head: Normocephalic. Eyes: Conjunctiva/sclera: Conjunctivae normal. Pupils: Pupils are equal, round, and reactive to light. Cardiovascular: Rate and Rhythm: Normal rate and regular rhythm. Heart sounds: Normal heart sounds. Pulmonary: Effort: Pulmonary effort is normal. No tachypnea, accessory muscle usage or respiratory distress. Breath sounds: No stridor. Abdominal: Palpations: Abdomen is soft. Tenderness: There is no abdominal tenderness. Musculoskeletal: Cervical back: Normal range of motion and neck supple. No rigidity or tenderness. Feet: Comments: Clean wound noted distal aspect left fifth digit. Distal aspect of toe was clipped by toenail clippers. Small amount of bleeding noted. On evaluation wound was superficial. There is no boneinvolvement. Skin: General: Skin is warm and dry. Neurological: Mental Status: She is alert and oriented to person, place, and time. Area was cleansed with antimicrobial scrub and water. Area was rinsed thoroughly. Investigated wound superficial. Mupirocin dressing applied. ASSESSMENT/PLAN: 1. Laceration of fifth toe of left foot, initial encounter - ICD9: 893.0, ICD10: S91.115A Wound was superficial. There was no skin flaps for closure. Area was cleansed thoroughly. Patientlyplaced on short course of prophylactic antibiotics. Will keep wound clean and dressed. We will follow-up with PCP 5 to 7 days for wound reevaluation. Tetanus shot was up-to-date. Patient was educatedon supportive therapies. Patient was instructed to immediately proceed to emergency room for any new, worsening, or symptoms lasting longer than anticipated. The patient's clinical presentation is otherwise unremarkable at this time. Based on exam and clinical finding, the patient is stable for discharge. Plan of care was discussed with patient. Patient verbalizes understanding and agrees to planof care. This note was generated using iCetana software. It may contain errors in wording, punctuation, or spelling. Michael Haro APRN.KENDAL documented in this encounterK[facility]05-06-2022 History of Present illness Narrative* Ericka Zamora, JUVENTINO - 02/06/2022 2:22 PM EDT 1. Ptosis of right eyelid Unexplained ptosis right eye x 2.5 weeks (-) pupil involvement (-) pain (slight ache on occasion) (-) EOM abnormalities +eyelid drooped more after prolonged upgaze, also + ice test with improvement in ptosis by 6mm before drooping again after 30 seconds Suspicion for myasthenia gravis -will consult with Dr. Adams (referring doctor) to facilitate blood work Denies other symptoms including breathing or swallowing problems Follow-up in 1 month Advised patient to call back if during office hours or go to emergency room with any double vision,eye turn (lazy eye), eye pain or loss of vision 2. Type 2 diabetes mellitus with both eyes affected by moderate nonproliferative retinopathy without macular edema, with long-term current use of insulin ([facility]) Continue follow-up with Dr. Connors 3. Pseudophakia of both eyes Monitor Follow-up in 1 month Ericka Zamora, OD February 06, 2022 2:22 PM documented in this encounterKet[facility]05-02-2022 Miscellaneous Notes* Telephone Encounter - Maylin Delaney LPN - 02/02/2022 10:54 AM EDT Closed 02/02/2022 10:32 AM Case ID: [id number] Close reason: Prior Authorization not required for patient/medication Note from payer: No Authorization Required.No authorization is required for the medication requested. Payer: [employer] * Telephone Encounter - Maylin Delaney LPN - 02/02/2022 9:50 AM EDT Electronic PA completed for elio documented in this encounterKettering [facility]04-29-2022 History of Present illness Narrative* Ericka Zamora, OD - 01/30/2022 3:44 PM EDT 1. Ptosis of right eyelid Unexplained ptosis right eye (-) pupil involvement (-) pain (-) EOM abnormalities +eyelid drooped more after prolonged upgaze, possible myasthenia? No other symptoms including breathing or swallowing problems -consider ice test? Follow-up in 1 week Advised patient to call back if during office hours or go to emergency room with any double vision,eye turn (lazy eye), eye pain or loss of vision 2. Type 2 diabetes mellitus with both eyes affected by moderate nonproliferative retinopathy without macular edema, with long-term current use of insulin (HCC) Continue regular dilated exams 3. Pseudophakia of both eyes Monitor Follow-up in 1 week Ericka Zamora, OD January 30, 2022 3:44 PM documented in this encounterKettering [facility]04-29-2022 Instructions* Patient Instructions* Ericka Zamora, OD - 01/30/2022 3:40 PM EDT Call office with any sudden double vision, eye pain, eye turn(lazy eye) or loss in vision If any of the above symptoms happens after hours or on weekend, go to emergency room Otherwise, follow-up in 1 week documented in this encounterKettering [facility]04-29-2022 History of Present illness Narrative* Sarina Adams MD - 01/30/2022 2:09 PM EDT This note was created using Telerivetriter. Subjective Samantha Romero is a 56 year old female. Patient presents with: Recheck: 3 month follow up SUBJECTIVE: Samantha Romero is a 56 year old year old lady here today for 3 month follow up appointment for reviewof medical conditions. Starting Wednesday last week with right eye with swelling of lid. Swelling increased since then Pain in right eye with sunlight Lid has been red and swollen. Noted once in a while some itching. Eyes are watering but right is worse. Taking allergy eye drops. Can see far away but seems vision still a little blurry Hard to keep right lid up. Right lid ptosis. December had ey appointment and was fine. Takes Systane drops for dryStaying off pop now. eyes. No double vision noted. Noted that sugars have been high lately. PAST MEDICAL HISTORY Diagnosis Date COVID-19 07/06/2021 HTN (hypertension) Hyperlipidemia 04/05/2014 Hypothyroid 04/19/2014 Kidney stone on left side 04/12/2014 OA (osteoarthritis) of hip, bilateral 04/04/2014 Type II or unspecified type diabetes mellitus without mention of complication, uncontrolled 04/05/2014 Current Outpatient Medications Medication Sig dicyclomine (BENTYL) 10 mg capsule Take 1 capsule by mouth before meals and at bedtime. for abdominal pain blood sugar diagnostic (FREESTYLE LITE STRIPS) test strip Test blood sugar(s) 4 times daily. Dx: Other DM Code E11.40 Insulin: Yes meloxicam (MOBIC) 15 mg tablet Take 1 tablet by mouth once daily as needed for pain. With food. empagliflozin (JARDIANCE) 25 mg tablet Take 1 tablet by mouth daily with breakfast. flash glucose sensor (FREESTYLE TAYLOR 14 DAY SENSOR) kit Use to check blood sugar 4 times daily. Please give 2 sensors per refill EYE DROPS DISPENSER MISC cystene hydroCHLOROthiazide 12.5 mg capsule Take 1 capsule by mouth once daily. Fenofibrate (LOFIBRA) 160 mg tablet Take 1 tablet by mouth once daily. lisinopril 2.5 mg tablet Take 1 tablet by mouth once daily. dulaglutide (TRULICITY) 1.5 mg/0.5 mL pen injector Inject 1.5 mg subcutaneously one time a week. fluticasone (FLONASE) 50 mcg/actuation nasal spray Use 1-2 Sprays in each nostril once daily as needed. gabapentin (NEURONTIN) 300 mg capsule Take 1 capsule by mouth twice daily for 180 days. insulin degludec (TRESIBA FLEXTOUCH U-100) 100 unit/mL (3 mL) injection pen Inject 52 Units subcutaneously daily at bedtime. insulin lispro (HUMALOG KWIKPEN INSULIN) 100 unit/mL Inject 8 Units subcutaneously three times daily before meals. Vitamin E, dl, acetate, (VITAMIN E) 400 unit capsule Take 400 Units by mouth once daily. flash glucose sensor (FREESTYLE TAYLOR 14 DAY SENSOR) kit Use to check blood sugar 4 times daily levothyroxine (SYNTHROID) 175 mcg tablet Take 1 tablet by mouth once daily. Take on empty stomach. For Thyroid. omega-3 fatty acids (FISH OIL CONCENTRATE ORAL) Take by mouth. rosuvastatin (CRESTOR) 10 mg tablet Take 1 tablet by mouth daily at bedtime. Miscellaneous Medical Supply (BLOOD PRESSURE CUFF) 1 Each as needed. Blood pressure Monitor and Cuff, use as directed. Dx: I10 Hypertension Insulin [place], Disposable, (BD ULTRAFINE III MINI PEN) 31 gauge x 3/16 inject 1 subcutaneously four times a day flash glucose scanning reader (FREESTYLE TAYLOR 14 DAY READER) Use to check blood sugar 4 times daily hydrocortisone 2.5 % cream Apply 1 application to affected area twice daily. Location: hands and chest estradiol (ESTRACE) 0.01 % (0.1 mg/gram) vaginal cream Use 3 g vaginally two times a week. hydrOXYzine HCl (ATARAX) 25 mg tablet Take 1-2 tablets by mouth at bedtime as needed. Lancets lancets Test blood sugar(s) 3 times daily. Dx: Type 2 DM - Uncontrolled E11.65 Insulin: Yes clotrimazole-betamethasone (LOTRISONE) cream Apply 1 application to affected area twice daily. X 2 weeks. Humphrey-3 Fatty Acids-Vitamin E (FISH OIL) 1,000 mg cap Take 1 capsule by mouth twice daily. No current facility-administered medications for this visit. Review of Systems Objective BP (P) 100/62 (BP Site: Left Arm, BP Position: Sitting, BP Cuff Size: Regular Adult) Pulse (P) 84 Resp (P) 16 Wt (P) 86.6 kg (191 lb) LMP 04/27/2016 SpO2 (P) 94% BMI (P) 32.79 kg/m Physical Exam HENT: Head: Normocephalic and atraumatic. Eyes: General: Vision grossly intact. Right eye: No discharge or hordeolum. Left eye: No discharge or hordeolum. Extraocular Movements: Right eye: Normal extraocular motion. Left eye: Normal extraocular motion. Conjunctiva/sclera: Right eye: Right conjunctiva is not injected. No exudate or hemorrhage. Left eye: Left conjunctiva is not injected. No exudate or hemorrhage. Comments: Right lid droop noted. Not able to open eyes wide. See photo under images at rest and with trying to open eyes wide. Neurological: Cranial Nerves: No dysarthria. Sensory: Sensation is intact. Pupils only do not dilate much with shading. Difficult to tell how reactive to light they are or ifany aniscoria. Assessment and Plan Encounter Diagnosis ICD-10-CM 1. Ptosis of eyelid, right H02.401 CONSULT TO OPHTHALMOLOGY 2. Right eye sensitive to light H53.141 CONSULT TO OPHTHALMOLOGY 3. Watery eyes H04.203 CONSULT TO OPHTHALMOLOGY worse on right 4. 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 Zamora after reviewed symptoms and exam with her. Patient will head there now. ?CN III palsy. Further evaluation and treatment as indicated. Refill for Jardiance given to see if can get 90 days supply. Sarina Adams MD Medical Decision Making: Problems: Low: Stable chronic illness Moderate: New problem with uncertain prognosis Data: Discussed management or test w/ external physician/QHCP/source Medical Decision Making Level: 4 - Moderate documented in this [facility] Miscellaneous Notes* Telephone Encounter - Sarina Adams MD - 12/31/2021 3:25 PM EDT Okayed * Telephone Encounter - Jaylyn Vazquez LPN - 12/31/2021 10:17 AM EDT Patient has been identified by name and date of : Yes Patient phones for refill(s): Pending Prescriptions Disp Refills DICYCLOMINE 10 MG CAPSULE 120 capsule 2 Sig: Take 1 capsule by mouth before meals and at bedtime. for abdominal pain YUKO: No Date of last office visit in primary care: 07/29/2021 3 month follow-up: 01/30/2022 Last 2 Encounter Wt Readings: Date: Wt: 12/09/2021 87.6 kg (193 lb 3.2 oz) 10/07/2021 89.4 kg (197 lb) Previous labs/tests for medication: Not applicable Please advise. Thank you. Jaylyn Vazquez LPN * Telephone Encounter - Nicole Hinkle - 12/30/2021 1:12 PM EDT Patient has been identified by name and date of : Yes Pending Prescriptions Disp Refills DICYCLOMINE 10 MG CAPSULE 120 capsule 2 Sig: Take 1 capsule by mouth before meals and at bedtime. for abdominal pain YUKO: No RX INSTRUCTIONS: Patient aware RX will be sent to pharmacy. No need to notify patient. Nicole Hinkle documented in this [facility] Miscellaneous Notes* Telephone Encounter - Jaylyn Vazquez LPN - 12/29/2021 4:49 PM EDT Patient has been identified by name and date of : Yes Patient phones for refill(s): Pending Prescriptions Disp Refills FREESTYLE LITE STRIPS 50 Strip 3 Sig: Test blood sugar(s) 4 times daily. Dx: Other DM Code E11.40 Insulin: Yes YUKO: No MELOXICAM 15 MG TABLET 30 tablet 1 Sig: Take 1 tablet by mouth once daily as needed for pain. With food. YUKO: No Date of last office visit in primary care: 07/29/2021 3 month follow-up: 01/30/2022 Last 2 Encounter Wt Readings: Date: Wt: 12/09/2021 87.6 kg (193 lb 3.2 oz) 10/07/2021 89.4 kg (197 lb) Previous labs/tests for medication: Diabetes: Hemoglobin A1C (%) Date Value 04/10/2021 8.3 10/25/2020 10.3 Please advise. Thank you. Jaylyn Vazquez LPN documented in this encounterK[facility] Miscellaneous Notes* Telephone Encounter - Jaylyn Vazquez LPN - 12/29/2021 4:48 PM EDT Patient has been identified by name and date of : Yes Patient phones for refill(s): Pending Prescriptions Disp Refills EMPAGLIFLOZIN 25 MG TABLET 90 tablet 3 Sig: Take 1 tablet by mouth daily with breakfast. YUKO: No Date of last office visit in primary care: 07/29/2021 3 month follow-up: 01/30/2022 Last 2 Encounter Wt Readings: Date: Wt: 12/09/2021 87.6 kg (193 lb 3.2 oz) 10/07/2021 89.4 kg (197 lb) Previous labs/tests for medication: Diabetes: Hemoglobin A1C (%) Date Value 04/10/2021 8.3 10/25/2020 10.3 Please advise. Thank you. Jaylyn Vazquez LPN documented in this encounterK[facility] Miscellaneous Notes* Telephone Encounter - Jaylyn Vazquez LPN - 12/29/2021 4:11 PM EDT Patient has been identified by name and date of : Yes Patient phones for refill(s): Pending Prescriptions Disp Refills [employer] TAYLOR 14 DAY SENSOR KIT 2 Kit 5 Sig: Use to check blood sugar 4 times daily. Please give 2 sensors per refill YUKO: No Date of last office visit in primary care: 07/29/2021 3 month follow-up: 01/30/2022 Last 2 Encounter Wt Readings: Date: Wt: 12/09/2021 87.6 kg (193 lb 3.2 oz) 10/07/2021 89.4 kg (197 lb) Previous labs/tests for medication: Diabetes: Hemoglobin A1C (%) Date Value 04/10/2021 8.3 10/25/2020 10.3 Please advise. Thank you. Jaylyn Vazquez LPN * Telephone Encounter - Nadine Watt Pss - 12/29/2021 10:22 AM EDT Patient called to check on status of refill request. Said she only has 3 days left. documented in this encounterK[facility] History of Present illness Narrative* Ericka Zamora, OD - 12/25/2021 2:15 PM EDT 1. Type 2 diabetes mellitus with both eyes affected by moderate nonproliferative retinopathy without macular edema, with long-term current use of insulin (HCC) Minimal-non central involving edema left eye None right eye Stable retinopathy Risk of diabetic changes and vision loss can be minimized by tight control of blood sugar, blood pressure, and cholesterol levels. Educated patient to continue care with primary care doctor and/or turkey cleaner to maintain optimum levels as they are important to avoid ocular complications. Encouraged patient to call the office immediately with any changes to vision or visual concerns. Advised to not wait until the next scheduled exam. 2. Pseudophakia of both eyes Doing well PO Reprinted glasses rx for SV-reading post surgery Monitor in 6 months with dfe/OCT or sooner with any changes in vision Ericka Zamora, OD December 25, 2021 2:15 PM documented in this encounterK[facility]13-[facility]22 Miscellaneous Notes* Telephone Encounter - Sarina Adams MD - 11/16/2021 1:29 AM EST The following approved medication requests have been transmitted electronically. Signed Prescriptions Disp Refills hydroCHLOROthiazide 12.5 mg capsule 30 capsule 11 Sig: Take 1 capsule by mouth once daily. YUKO: No Authorizing Provider: SARINA ADAMS MD * Telephone Encounter - Alicja Robin RN - 11/14/2021 4:49 PM EST Patient has been identified by name and date of : Yes Patient phones for refill(s): Pending Prescriptions Disp Refills HYDROCHLOROTHIAZIDE 12.5 MG CAPSULE 30 capsule 11 Sig: Take 1 capsule by mouth once daily. YUKO: No Date of last office visit in primary care: 07/29/21 Future visit: 01/30/22 Last 2 Encounter Wt Readings: Date: Wt: 10/07/2021 89.4 kg (197 lb) 09/25/2021 87.1 kg (192 lb) Previous labs/tests for medication: Blood Pressure: BUN (mg/dL) Date Value 05/22/2021 38 Sodium (mmol/L) Date Value 05/22/2021 137 Last 1 Encounter BP Readings: Date: BP: 10/07/2021 112/70 Liver Function: ALT (U/L) Date Value 05/22/2021 23 AST (U/L) Date Value 05/22/2021 19 Please advise. Thank you. Alicja Robin RN documented in this encounterK[facility]09-[facility] NotePost Operative Note: Post-Procedure Diagnosis: 1. Combined Form Age Related Cataract Left Eye Procedure: 1. Cataract Extraction with Intraocular Lens Implant Left Eye Surgeon: Steve Mcmillan MD Resident/Fellow/Other Carbide Grinder: None Estimated Blood Loss (mL): none Specimen: no Findings: 1. Combined Form Age Related Cataract Left Eye Operative Report Dictated: Dictation: not applicable - note contains Operative Report Operative Report: The patient was correctly identified in the preop area and the operative eye was marked with a marking pen. The operative eye was dilated in the preoperative area. The patient was then taken to the operating room where timeout was performed before starting the procedure. Combined anesthesia with intravenous sedation and topical tetracaine eyedrops were given the left eye. The operative eye was prepped and draped in the standard sterile ophthalmic fashion in preparation for ophthalmic surgery. A Lambert wire speculum was then inserted between the eyelids of the left eye and the operating microscope was placed over the left eye. A paracentesis incision was made approximately 30 away from the planned surgical incision site with the help of MVR blade. 1% lidocaine MPF with Phenylephrine 1.5% PF was injected into the anterior chamber through the paracentesis incision. A near limbal clear corneal incision was fashioned in the temporal quadrant just outside the vascular arcade and Viscoat was injected into anterior chamber to firm the eye. A bent needle cystotome was used and Utrata forceps were utilized to create a continuous curvilinear capsulorrhexis. BSS was injected beneath the anterior capsule to hydrodissect the nucleus from adjacent cortex and capsule. The residual cortex were then aspirated with irrigation aspiration handpiece. The posterior capsule was then polished with the help of soft irrigation-aspiration tip. Provisc viscoelastic was then injected into the eye to reform the anterior chamber and to open the capsular bag. The intraocular lens implant was taken from its sterile wrapping, inspected under the surgical microscope and found to be in good condition. The intraocular lens implant 17.5D was injected into the capsule bag. The Provisc was then aspirated from the anterior chamber and from behind the intraocular lens implant. The anterior chamber was inflated with the help of BSS to moderate tension. The edges of the surgical incision were then hydrated with the help of BSS. Vigamox was then injected into the anterior chamber and into the capsule bag through the paracentesis incision. 1ml of 10mg/ml of Dexamethasone was injected sub-conjunctival. The surgical wound was then inspected and found to be watertight. The wire speculum and drapes were then removed. Pred Forte eyedrops, Acular eyedrops and Betadine 5% sterile ophthalmic solution were instilled in the conjunctival sac. The patient tolerated the procedure well and was taken to recovery room in stable condition. Attestation: Note Completion: Attending AttestationI performed the procedure without a resident Electronic Signatures: Steve Mcmillan) (Signed 12-Jun-2021 11:49) Authored: Post Operative Note, Note Completion Last Updated: 12-Jun-2021 11:49 by Steve Mcmillan)[facility] 06-12-[facility]21 NoteHistory & Physical Reviewed: /Lactating: Are You no Are You Currently Breastfeedingno I have reviewed the History and Physical dated: 03-Jun-2021 History and Physical reviewed and relevant findings noted. Patient examined to review pertinent physical findings.: No significant changes Home Medications Reviewed: no changes noted Allergies Reviewed: no changes noted ERAS (Enhanced Recovery After Surgery): ERAS Patient: no Consent: COVID-19 Consent: COVID-19 Risk ConsentSurgeon has reviewed fontanez risks related to the risk of roge COVID-19 and if they contract COVID-19 what the risks are. Electronic Signatures: Steve Mcmillan) (Signed 12-Jun-2021 10:31) Authored: History & Physical Reviewed, ERAS, Consent, Note Completion Last Updated: 12-Jun-2021 10:31 by Steve Mcmillan)[facility] 05-29-2021 NotePost Operative Note: Post-Procedure Diagnosis: 1. Combined Form Age Related Cataract Right eye 2. Type 2 Diabetes with both eyes affected by Severe Non proliferative Retinopathy without Macular Edema Procedure: 1. Cataract Extraction with Intraocular Lens Implant Right Eye Surgeon: Steve Mcmillan MD Resident/Fellow/Other Carbide Grinder: None Estimated Blood Loss (mL): none Specimen: no Findings: 1. Combined Form Age Related Cataract Right eye 2. Type 2 Diabetes with both eyes affected by Severe Non proliferative Retinopathy without Macular Edema Operative Report Dictated: Dictation: not applicable - note contains Operative Report Operative Report: The patient was correctly identified and the patient's operative eye was marked with a marking pen and verified with the patient in the pre-operative area. The operative eye was dilated in the preoperative area. The patient was then taken to the operating room where timeout was performed before starting the procedure. Combined anesthesia with intravenous sedation and topical tetracaine eyedrops were instilled into the right eye. The operative eye was prepped and draped in the standard sterile ophthalmic fashion in preparation for ophthalmic surgery. A Lambert wire speculum was then inserted between the eyelids of the right eye and the operating microscope was placed over the right eye. A paracentesis incision was made approximately 30 away from the planned surgical incision site with the help of MVR blade. 1% lidocaine MPF with Phenylephrine 1.5% PF was injected into the anterior chamber through the paracentesis incision. A near limbal clear corneal incision was fashioned in the temporal quadrant just outside the vascular arcade and Viscoat was injected into anterior chamber to firm the eye. A bent needle cystotome was used and Utrata forceps were utilized to create a continuous curvilinear capsulorrhexis. BSS was injected beneath the anterior capsule to hydrodissect the nucleus from adjacent cortex and capsule. The residual cortex was then aspirated with irrigation/aspiration handpiece. The posterior capsule was then polished with the help of soft irrigation-aspiration tip. Provisc viscoelastic was then injected into the eye to reform the anterior chamber and to open the capsular bag. The intraocular lens implant was taken from its sterile wrapping, inspected under the surgical microscope and found to be in good condition. The intraocular lens implant 18.0D was injected into the capsule bag. The Provisc was then aspirated from the anterior chamber and from behind the intraocular lens implant. The anterior chamber was inflated with the help of BSS to moderate tension. And the edges of the surgical incision were then hydrated with the help of BSS. Vigamox was then injected into the anterior chamber and into the capsule bag through the paracentesis incision. The surgical wound was then inspected and found to be watertight. A sub-conjunctival injection of 1ml Dexamethasone 4mg/ml was given. The wire speculum and drapes were then removed. Pred Forte eyedrops, Acular eyedrops and Betadine 5% sterile ophthalmic solution were instilled in the conjunctival sac. The patient tolerated the procedure well and was taken to recovery room in stable condition. Attestation: Note Completion: Attending AttestationI performed the procedure without a resident Electronic Signatures: Steve Mcmillan) (Signed 29-May-2021 11:01) Authored: Post Operative Note, Note Completion Last Updated: 29-May-2021 11:01 by Steve Mcmillan)[facility] 05-29-2021 NoteHistory & Physical Reviewed: /Lactating: Are You no Are You Currently Breastfeedingno I have reviewed the History and Physical dated: 23-May-2021 History and Physical reviewed and relevant findings noted. Patient examined to review pertinent physical findings.: No significant changes Home Medications Reviewed: no changes noted Allergies Reviewed: no changes noted ERAS (Enhanced Recovery After Surgery): ERAS Patient: no Consent: COVID-19 Consent: COVID-19 Risk ConsentSurgeon has reviewed fontanez risks related to the risk of roge COVID-19 and if they contract COVID-19 what the risks are. Electronic Signatures: Steve Mcmillan) (Signed 29-May-2021 09:03) Authored: History & Physical Reviewed, ERAS, Consent, Note Completion Last Updated: 29-May-2021 09:03 by Steve Mcmillan)[facility] 05-09-2021 History of Past illness Narrative* Problem Noted Date Resolved Date Combined 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-related cataract of right eye 05/09/2021 06/03/2021 documented as of this encounter (statuses as of 12/25/2021) [facility] of Past illness Narrative* Problem Noted Date Resolved Date Combined 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-related cataract of right eye 05/09/2021 06/03/2021 documented as of this encounter (statuses as of 12/29/2021) [facility] of Past illness Narrative* Problem Noted Date Resolved Date Combined 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-related cataract of right eye 05/09/2021 06/03/2021 documented as of this encounter (statuses as of 12/29/2021) [facility] of Past illness Narrative* Problem Noted Date Resolved Date Combined 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-related cataract of right eye 05/09/2021 06/03/2021 documented as of this encounter (statuses as of 12/29/2021) [facility] of Past illness Narrative* Problem Noted Date Resolved Date Combined 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-related cataract of right eye 05/09/2021 06/03/2021 documented as of this encounter (statuses as of 12/29/2021) [address]06-[address]21 History of Past illness Narrative* Problem Noted Date Resolved Date Combined 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-related cataract of right eye 05/09/2021 06/03/2021 documented as of this encounter (statuses as of 12/31/2021) [facility] of Past illness Narrative* Problem Noted Date Resolved Date Combined 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-related cataract of right eye 05/09/2021 06/03/2021 documented as of this encounter (statuses as of 01/30/2022) [facility] of Past illness Narrative* Problem Noted Date Resolved Date Combined 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-related cataract of right eye 05/09/2021 06/03/2021 documented as of this encounter (statuses as of 01/30/2022) [facility] Narrative* Problem Noted Date Resolved Date Combined 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-related cataract of right eye 05/09/2021 06/03/2021 documented as of this encounter (statuses as of 02/02/2022) [address]06-2021 History of Past illness Narrative* Problem Noted Date Resolved Date Combined 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-related cataract of right eye 05/09/2021 06/03/2021 documented as of this encounter (statuses as of 02/06/2022) [address]06-2021 History of Past illness Narrative* Problem Noted Date Resolved Date Combined 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-related cataract of right eye 05/09/2021 06/03/2021 documented as of this encounter (statuses as of 02/25/2022) [address]06-2021 History of Past illness Narrative* Problem Noted Date Resolved Date Combined 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-related cataract of right eye 05/09/2021 06/03/2021 documented as of this encounter (statuses as of 03/11/2022) [address]-2021 History of Past illness Narrative* Problem Noted Date Resolved Date Combined 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-related cataract of right eye 05/09/2021 06/03/2021 documented as of this encounter (statuses as of 03/11/2022) [address]06-[address]21 History of Past illness Narrative* Problem Noted Date Resolved Date Combined 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-related cataract of right eye 05/09/2021 06/03/2021 documented as of this encounter (statuses as of 03/25/2022) [facility] Narrative* Problem Noted Date Resolved Date Combined 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-related cataract of right eye 05/09/2021 06/03/2021 documented as of this encounter (statuses as of 03/26/2022) [facility] Past illness Narrative* Problem Noted Date Resolved Date Combined 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-related cataract of right eye 05/09/2021 06/03/2021 documented as of this encounter (statuses as of 03/27/2022) [facility] Narrative* Problem Noted Date Resolved Date Combined 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-related cataract of right eye 05/09/2021 06/03/2021 documented as of this encounter (statuses as of 04/13/2022) [facility] Narrative* Problem Noted Date Resolved Date Combined 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-related cataract of right eye 05/09/2021 06/03/2021 documented as of this encounter (statuses as of 05/01/2022) [facility] of Past [facility] Narrative* Problem Noted Date Resolved Date Combined 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-related cataract of right eye 05/09/2021 06/03/2021 documented as of this encounter (statuses as of 05/13/2022) [facility] Narrative* Problem Noted Date Resolved Date Combined 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-related cataract of right eye 05/09/2021 06/03/2021 documented as of this encounter (statuses as of 05/27/2022) [facility] of Past illness Narrative* Problem Noted Date Resolved Date Combined 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-related cataract of right eye 05/09/2021 06/03/2021 documented as of this encounter (statuses as of 06/02/2022) [facility] of Past illness Narrative* Problem Noted Date Resolved Date Combined 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-related cataract of right eye 05/09/2021 06/03/2021 documented as of this encounter (statuses as of 06/10/2022) [facility] Narrative* Problem Noted Date Resolved Date Combined 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-related cataract of right eye 05/09/2021 06/03/2021 documented as of this encounter (statuses as of 06/15/2022) [facility] of Past illness Narrative* Problem Noted Date Resolved Date Combined 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-related cataract of right eye 05/09/2021 06/03/2021 documented as of this encounter (statuses as of 06/15/2022) [facility] Narrative* Problem Noted Date Resolved Date Combined 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-related cataract of right eye 05/09/2021 06/03/2021 documented as of this encounter (statuses as of 06/16/2022) [facility] Narrative* Problem Noted Date Resolved Date Combined 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-related cataract of right eye 05/09/2021 06/03/2021 documented as of this encounter (statuses as of 06/16/2022) [facility] of Past illness Narrative* Problem Noted Date Resolved Date Combined 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-related cataract of right eye 05/09/2021 06/03/2021 documented as of this encounter (statuses as of 07/03/2022) [facility] Past [facility] Narrative* Problem Noted Date Resolved Date Combined 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-related cataract of right eye 05/09/2021 06/03/2021 documented as of this encounter (statuses as of 07/15/2022) [facility] of Past illness Narrative* Problem Noted Date Resolved Date Combined 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-related cataract of right eye 05/09/2021 06/03/2021 documented as of this encounter (statuses as of 07/18/2022) [facility] of Past illness Narrative* Problem Noted Date Resolved Date Combined 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-related cataract of right eye 05/09/2021 06/03/2021 documented as of this encounter (statuses as of 07/21/2022) [address]21 History of Past illness Narrative* Problem Noted Date Resolved Date Combined 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-related cataract of right eye 05/09/2021 06/03/2021 documented as of this encounter (statuses as of 07/31/2022) [facility] Narrative* Problem Noted Date Resolved Date Combined 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-related cataract of right eye 05/09/2021 06/03/2021 documented as of this encounter (statuses as of 08/05/2022) [facility] Past [facility] Narrative* Problem Noted Date Resolved Date Combined 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-related cataract of right eye 05/09/2021 06/03/2021 documented as of this encounter (statuses as of 08/14/2022) [facility] Past [facility] Narrative* Problem Noted Date Resolved Date Combined 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-related cataract of right eye 05/09/2021 06/03/2021 documented as of this encounter (statuses as of 08/14/2022) [facility] Past [facility] Narrative* Problem Noted Date Resolved Date Combined 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-related cataract of right eye 05/09/2021 06/03/2021 documented as of this encounter (statuses as of 08/14/2022) [facility] of Past illness Narrative* Problem Noted Date Resolved Date Combined 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-related cataract of right eye 05/09/2021 06/03/2021 documented as of this encounter (statuses as of 08/25/2022) [facility] Narrative* Problem Noted Date Resolved Date Combined 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-related cataract of right eye 05/09/2021 06/03/2021 documented as of this encounter (statuses as of 08/28/2022) [facility] of Past illness Narrative* Problem Noted Date Resolved Date Combined 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-related cataract of right eye 05/09/2021 06/03/2021 documented as of this encounter (statuses as of 09/11/2022) [facility] of Past illness Narrative* Problem Noted Date Resolved Date Combined 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-related cataract of right eye 05/09/2021 06/03/2021 documented as of this encounter (statuses as of 09/14/2022) [address]21 History of Past illness Narrative* Problem Noted Date Resolved Date Combined 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-related cataract of right eye 05/09/2021 06/03/2021 documented as of this encounter (statuses as of 09/15/2022) [facility]08-06-2021 History of Past illness Narrative* Problem Noted Date Resolved Date Combined 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-related cataract of right eye 05/09/2021 06/03/2021 documented as of this encounter (statuses as of 09/21/2022) [facility]2021 History of Past illness Narrative* Problem Noted Date Resolved Date Combined 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-related cataract of right eye 05/09/2021 06/03/2021 documented as of this encounter (statuses as of 09/21/2022) [address]-2021 History of Past illness Narrative* Problem Noted Date Resolved Date Combined 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-related cataract of right eye 05/09/2021 06/03/2021 documented as of this encounter (statuses as of 09/27/2022) [facility]2021 History of Past illness Narrative* Problem Noted Date Resolved Date Combined 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-related cataract of right eye 05/09/2021 06/03/2021 documented as of this encounter (statuses as of 10/05/2022) [address]-2021 History of Past illness Narrative* Problem Noted Date Resolved Date Combined 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-related cataract of right eye 05/09/2021 06/03/2021 documented as of this encounter (statuses as of 10/05/2022) [address]-2021 History of Past illness Narrative* Problem Noted Date Resolved Date Combined 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-related cataract of right eye 05/09/2021 06/03/2021 documented as of this encounter (statuses as of 10/05/2022) [address]-2021 History of Past illness Narrative* Problem Noted Date Resolved Date Combined 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-related cataract of right eye 05/09/2021 06/03/2021 documented as of this encounter (statuses as of 10/19/2022) [address]-2021 History of Past illness Narrative* Problem Noted Date Resolved Date Combined 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-related cataract of right eye 05/09/2021 06/03/2021 documented as of this encounter (statuses as of 10/19/2022) [facility]2021 History of Past illness Narrative* Problem Noted Date Resolved Date Combined 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-related cataract of right eye 05/09/2021 06/03/2021 documented as of this encounter (statuses as of 10/22/2022) [facility]2021 History of Past illness Narrative* Problem Noted Date Resolved Date Combined 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-related cataract of right eye 05/09/2021 06/03/2021 documented as of this encounter (statuses as of 10/22/2022) [facility]2021 History of Past illness Narrative* Problem Noted Date Resolved Date Combined 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-related cataract of right eye 05/09/2021 06/03/2021 documented as of this encounter (statuses as of 10/23/2022) [facility]2021 History of Past illness Narrative* Problem Noted Date Resolved Date Combined 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-related cataract of right eye 05/09/2021 06/03/2021 documented as of this encounter (statuses as of 10/27/2022) [facility]2021 History of Past illness Narrative* Problem Noted Date Resolved Date Combined 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-related cataract of right eye 05/09/2021 06/03/2021 documented as of this encounter (statuses as of 11/11/2022) [facility]2021 History of Past illness Narrative* Problem Noted Date Resolved Date Combined 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-related cataract of right eye 05/09/2021 06/03/2021 documented as of this encounter (statuses as of 11/18/2022) [facility]2021 History of Past illness Narrative* Problem Noted Date Resolved Date Combined 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-related cataract of right eye 05/09/2021 06/03/2021 documented as of this encounter (statuses as of 12/07/2022) [facility]2021 History of Past illness Narrative* Problem Noted Date Resolved Date Combined 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-related cataract of right eye 05/09/2021 06/03/2021 documented as of this encounter (statuses as of 12/14/2022) [address]-2021 History of Past illness Narrative* Problem Noted Date Resolved Date Combined 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-related cataract of right eye 05/09/2021 06/03/2021 documented as of this encounter (statuses as of 12/18/2022) [address]-2021 History of Past illness Narrative* Problem Noted Date Resolved Date Combined 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-related cataract of right eye 05/09/2021 06/03/2021 documented as of this encounter (statuses as of 12/18/2022) [facility]2021 History of Past illness Narrative* Problem Noted Date Resolved Date Combined 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-related cataract of right eye 05/09/2021 06/03/2021 documented as of this encounter (statuses as of 12/18/2022) [address]-2021 History of Past illness Narrative* Problem Noted Date Resolved Date Combined 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-related cataract of right eye 05/09/2021 06/03/2021 documented as of this encounter (statuses as of 12/25/2022) [facility]2021 History of Past illness Narrative* Problem Noted Date Resolved Date Combined 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-related cataract of right eye 05/09/2021 06/03/2021 documented as of this encounter (statuses as of 12/25/2022) [facility]2021 History of Past illness Narrative* Problem Noted Date Resolved Date Combined 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-related cataract of right eye 05/09/2021 06/03/2021 documented as of this encounter (statuses as of 12/25/2022) [address]-2021 History of Past illness Narrative* Problem Noted Date Resolved Date Combined 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-related cataract of right eye 05/09/2021 06/03/2021 documented as of this encounter (statuses as of 12/28/2022) [address]-2021 History of Past illness Narrative* Problem Noted Date Resolved Date Combined 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-related cataract of right eye 05/09/2021 06/03/2021 documented as of this encounter (statuses as of 01/11/2023) [address]-2021 History of Past illness Narrative* Problem Noted Date Resolved Date Combined 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-related cataract of right eye 05/09/2021 06/03/2021 documented as of this encounter (statuses as of 01/16/2023) [facility]2021 History of Past illness Narrative* Problem Noted Date Resolved Date Combined 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-related cataract of right eye 05/09/2021 06/03/2021 documented as of this encounter (statuses as of 01/19/2023) [facility]2021 History of Past illness Narrative* Problem Noted Date Resolved Date Combined 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-related cataract of right eye 05/09/2021 06/03/2021 documented as of this encounter (statuses as of 01/22/2023) [facility]2021 History of Past illness Narrative* Problem Noted Date Resolved Date Combined 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-related cataract of right eye 05/09/2021 06/03/2021 documented as of this encounter (statuses as of 01/25/2023) [facility]2021 History of Past illness Narrative* Problem Noted Date Resolved Date Combined 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-related cataract of right eye 05/09/2021 06/03/2021 documented as of this encounter (statuses as of 01/25/2023) [facility]2021 History of Past illness Narrative* Problem Noted Date Resolved Date Combined 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-related cataract of right eye 05/09/2021 06/03/2021 documented as of this encounter (statuses as of 02/04/2023) [facility]2021 History of Past illness Narrative* Problem Noted Date Resolved Date Combined 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-related cataract of right eye 05/09/2021 06/03/2021 documented as of this encounter (statuses as of 02/09/2023) [facility]2021 History of Past illness Narrative* Problem Noted Date Resolved Date Combined 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-related cataract of right eye 05/09/2021 06/03/2021 documented as of this encounter (statuses as of 02/11/2023) [facility]2021 History of Past illness Narrative* Problem Noted Date Resolved Date Combined 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-related cataract of right eye 05/09/2021 06/03/2021 documented as of this encounter (statuses as of 02/16/2023) [facility]2021 History of Past illness Narrative* Problem Noted Date Resolved Date Combined 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-related cataract of right eye 05/09/2021 06/03/2021 documented as of this encounter (statuses as of 02/16/2023) [facility]2021 History of Past illness Narrative* Problem Noted Date Resolved Date Combined 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-related cataract of right eye 05/09/2021 06/03/2021 documented as of this encounter (statuses as of 02/17/2023) [facility]2021 History of Past illness Narrative* Problem Noted Date Resolved Date Combined 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-related cataract of right eye 05/09/2021 06/03/2021 documented as of this encounter (statuses as of 03/04/2023) [facility]2021 History of Past illness Narrative* Problem Noted Date Resolved Date Combined 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-related cataract of right eye 05/09/2021 06/03/2021 documented as of this encounter (statuses as of 03/10/2023) [facility]2021 History of Past illness Narrative* Problem Noted Date Resolved Date Combined 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-related cataract of right eye 05/09/2021 06/03/2021 documented as of this encounter (statuses as of 03/10/2023) [facility]2021 History of Past illness Narrative* Problem Noted Date Resolved Date Combined 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-related cataract of right eye 05/09/2021 06/03/2021 documented as of this encounter (statuses as of 03/22/2023) [facility]2021 History of Past illness Narrative* Problem Noted Date Resolved Date Combined 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-related cataract of right eye 05/09/2021 06/03/2021 documented as of this encounter (statuses as of 03/25/2023) [facility]2021 History of Past illness Narrative* Problem Noted Date Resolved Date Combined 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-related cataract of right eye 05/09/2021 06/03/2021 documented as of this encounter (statuses as of 03/26/2023) [place] [address]21 History of Past illness Narrative* Problem Noted Date Resolved Date Combined 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-related cataract of right eye 05/09/2021 06/03/2021 documented as of this encounter (statuses as of 03/31/2023) [facility]2021 History of Past illness Narrative* Problem Noted Date Diagnosed Date Resolved Date Combined 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-relate d cataract of right eye 05/09/2021 06/03/2021 documented as of this encounter (statuses as of 04/12/2023) [facility]2021 History of Past illness Narrative* Problem Noted Date Diagnosed Date Resolved Date Combined 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-relate d cataract of right eye 05/09/2021 06/03/2021 documented as of this encounter (statuses as of 04/15/2023) [facility]2021 History of Past illness Narrative* Problem Noted Date Diagnosed Date Resolved Date Combined 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-relate d cataract of right eye 05/09/2021 06/03/2021 documented as of this encounter (statuses as of 04/20/2023) [facility]2021 History of Past illness Narrative* Problem Noted Date Diagnosed Date Resolved Date Combined 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-relate d cataract of right eye 05/09/2021 06/03/2021 documented as of this encounter (statuses as of 04/20/2023) [facility]2021 History of Past illness Narrative* Problem Noted Date Diagnosed Date Resolved Date Combined 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-relate d cataract of right eye 05/09/2021 06/03/2021 documented as of this encounter (statuses as of 04/20/2023) [facility]2021 History of Past illness Narrative* Problem Noted Date Diagnosed Date Resolved Date Combined 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-relate d cataract of right eye 05/09/2021 06/03/2021 documented as of this encounter (statuses as of 04/21/2023) [facility]2021 History of Past illness Narrative* Problem Noted Date Diagnosed Date Resolved Date Combined 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-relate d cataract of right eye 05/09/2021 06/03/2021 documented as of this encounter (statuses as of 04/21/2023) [address]21 History of Past illness Narrative* Problem Noted Date Diagnosed Date Resolved Date Combined 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-relate d cataract of right eye 05/09/2021 06/03/2021 documented as of this encounter (statuses as of 04/29/2023) [facility]2021 History of Past illness Narrative* Problem Noted Date Diagnosed Date Resolved Date Combined 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-relate d cataract of right eye 05/09/2021 06/03/2021 documented as of this encounter (statuses as of 05/11/2023) [facility]2021 History of Past illness Narrative* Problem Noted Date Diagnosed Date Resolved Date Combined 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-relate d cataract of right eye 05/09/2021 06/03/2021 documented as of this encounter (statuses as of 05/11/2023) [facility]2021 History of Past illness Narrative* Problem Noted Date Diagnosed Date Resolved Date Combined 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-relate d cataract of right eye 05/09/2021 06/03/2021 documented as of this encounter (statuses as of 05/11/2023) [facility]2021 History of Past illness Narrative* Problem Noted Date Diagnosed Date Resolved Date Combined 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-relate d cataract of right eye 05/09/2021 06/03/2021 documented as of this encounter (statuses as of 05/12/2023) [facility]2021 History of Past illness Narrative* Problem Noted Date Diagnosed Date Resolved Date Combined 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-relate d cataract of right eye 05/09/2021 06/03/2021 documented as of this encounter (statuses as of 05/15/2023) [facility]2021 History of Past illness Narrative* Problem Noted Date Diagnosed Date Resolved Date Combined 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-relate d cataract of right eye 05/09/2021 06/03/2021 documented as of this encounter (statuses as of 05/18/2023) [facility]2021 History of Past illness Narrative* Problem Noted Date Diagnosed Date Resolved Date Combined 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-relate d cataract of right eye 05/09/2021 06/03/2021 documented as of this encounter (statuses as of 05/25/2023) [facility]2021 History of Past illness Narrative* Problem Noted Date Diagnosed Date Resolved Date Combined 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-relate d cataract of right eye 05/09/2021 06/03/2021 documented as of this encounter (statuses as of 05/25/2023) [facility]2021 History of Past illness Narrative* Problem Noted Date Diagnosed Date Resolved Date Combined 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-relate d cataract of right eye 05/09/2021 06/03/2021 documented as of this encounter (statuses as of 06/22/2023) [facility]2021 History of Past illness Narrative* Problem Noted Date Diagnosed Date Resolved Date Combined 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-relate d cataract of right eye 05/09/2021 06/03/2021 documented as of this encounter (statuses as of 06/25/2023) [facility]2021 History of Past illness Narrative* Problem Noted Date Diagnosed Date Resolved Date Combined 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-relate d cataract of right eye 05/09/2021 06/03/2021 documented as of this encounter (statuses as of 06/29/2023) [facility]2021 History of Past illness Narrative* Problem Noted Date Diagnosed Date Resolved Date Combined 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-relate d cataract of right eye 05/09/2021 06/03/2021 documented as of this encounter (statuses as of 07/02/2023) [facility]2021 History of Past illness Narrative* Problem Noted Date Diagnosed Date Resolved Date Combined 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-relate d cataract of right eye 05/09/2021 06/03/2021 documented as of this encounter (statuses as of 07/03/2023) [facility]2021 History of Past illness Narrative* Problem Noted Date Diagnosed Date Resolved Date Combined 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-relate d cataract of right eye 05/09/2021 06/03/2021 documented as of this encounter (statuses as of 07/09/2023) [facility]2021 History of Past illness Narrative* Problem Noted Date Diagnosed Date Resolved Date Combined 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-relate d cataract of right eye 05/09/2021 06/03/2021 documented as of this encounter (statuses as of 07/14/2023) [facility]2021 History of Past illness Narrative* Problem Noted Date Diagnosed Date Resolved Date Combined 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-relate d cataract of right eye 05/09/2021 06/03/2021 documented as of this encounter (statuses as of 07/14/2023) [facility]2021 History of Past illness Narrative* Problem Noted Date Diagnosed Date Resolved Date Combined 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-relate d cataract of right eye 05/09/2021 06/03/2021 documented as of this encounter (statuses as of 07/22/2023) [facility]2021 History of Past illness Narrative* Problem Noted Date Diagnosed Date Resolved Date Combined 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-relate d cataract of right eye 05/09/2021 06/03/2021 documented as of this encounter (statuses as of 07/27/2023) [facility]2021 History of Past illness Narrative* Problem Noted Date Diagnosed Date Resolved Date Combined 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-relate d cataract of right eye 05/09/2021 06/03/2021 documented as of this encounter (statuses as of 07/27/2023) [facility]2021 History of Past illness Narrative* Problem Noted Date Diagnosed Date Resolved Date Combined 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-relate d cataract of right eye 05/09/2021 06/03/2021 documented as of this encounter (statuses as of 07/30/2023) [facility]2021 History of Past illness Narrative* Problem Noted Date Diagnosed Date Resolved Date Combined 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-relate d cataract of right eye 05/09/2021 06/03/2021 documented as of this encounter (statuses as of 08/08/2023) [facility]2021 History of Past illness Narrative* Problem Noted Date Diagnosed Date Resolved Date Combined 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-relate d cataract of right eye 05/09/2021 06/03/2021 documented as of this encounter (statuses as of 08/08/2023) [facility]2021 History of Past illness Narrative* Problem Noted Date Diagnosed Date Resolved Date Combined 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-relate d cataract of right eye 05/09/2021 06/03/2021 documented as of this encounter (statuses as of 08/13/2023) [facility]2021 History of Past illness Narrative* Problem Noted Date Diagnosed Date Resolved Date Combined 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-relate d cataract of right eye 05/09/2021 06/03/2021 documented as of this encounter (statuses as of 09/04/2023) [facility]2021 History of Past illness Narrative* Problem Noted Date Diagnosed Date Resolved Date Combined 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-relate d cataract of right eye 05/09/2021 06/03/2021 documented as of this encounter (statuses as of 09/15/2023) [facility]2021 History of Past illness Narrative* Problem Noted Date Diagnosed Date Resolved Date Combined 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-relate d cataract of right eye 05/09/2021 06/03/2021 documented as of this encounter (statuses as of 09/15/2023) [facility]2021 History of Past illness Narrative* Problem Noted Date Diagnosed Date Resolved Date Combined 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-relate d cataract of right eye 05/09/2021 06/03/2021 documented as of this encounter (statuses as of 09/15/2023) [facility]2021 History of Past illness Narrative* Problem Noted Date Diagnosed Date Resolved Date Combined 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-relate d cataract of right eye 05/09/2021 06/03/2021 documented as of this encounter (statuses as of 09/16/2023) [facility]2021 History of Past illness Narrative* Problem Noted Date Diagnosed Date Resolved Date Combined 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-relate d cataract of right eye 05/09/2021 06/03/2021 documented as of this encounter (statuses as of 11/09/2023) [facility]2021 History of Past illness Narrative* Problem Noted Date Diagnosed Date Resolved Date Combined 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-relate d cataract of right eye 05/09/2021 06/03/2021 documented as of this encounter (statuses as of 11/10/2023) [facility]2021 History of Past illness Narrative* Problem Noted Date Diagnosed Date Resolved Date Combined 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-relate d cataract of right eye 05/09/2021 06/03/2021 documented as of this encounter (statuses as of 11/15/2023) [facility]2021 History of Past illness Narrative* Problem Noted Date Diagnosed Date Resolved Date Combined 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-relate d cataract of right eye 05/09/2021 06/03/2021 documented as of this encounter (statuses as of 11/15/2023) [facility]2021 History of Past illness Narrative* Problem Noted Date Diagnosed Date Resolved Date Combined 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-relate d cataract of right eye 05/09/2021 06/03/2021 documented as of this encounter (statuses as of 11/15/2023) [facility]2021 History of Past illness Narrative* Problem Noted Date Diagnosed Date Resolved Date Combined 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-relate d cataract of right eye 05/09/2021 06/03/2021 documented as of this encounter (statuses as of 11/16/2023) [facility]2021 History of Past illness Narrative* Problem Noted Date Diagnosed Date Resolved Date Combined 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-relate d cataract of right eye 05/09/2021 06/03/2021 documented as of this encounter (statuses as of 11/16/2023) [facility]2021 History of Past illness Narrative* Problem Noted Date Diagnosed Date Resolved Date Combined 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-relate d cataract of right eye 05/09/2021 06/03/2021 documented as of this encounter (statuses as of 12/02/2023) [facility]2021 History of Past illness Narrative* Problem Noted Date Diagnosed Date Resolved Date Combined 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-relate d cataract of right eye 05/09/2021 06/03/2021 documented as of this encounter (statuses as of 12/06/2023) [facility]2021 History of Past illness Narrative* Problem Noted Date Diagnosed Date Resolved Date Combined 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-relate d cataract of right eye 05/09/2021 06/03/2021 documented as of this encounter (statuses as of 12/07/2023) [facility]2021 History of Past illness Narrative* Problem Noted Date Diagnosed Date Resolved Date Combined 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-relate d cataract of right eye 05/09/2021 06/03/2021 documented as of this encounter (statuses as of 12/08/2023) [facility]2021 History of Past illness Narrative* Problem Noted Date Diagnosed Date Resolved Date Combined 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-relate d cataract of right eye 05/09/2021 06/03/2021 documented as of this encounter (statuses as of 12/10/2023) [facility]2021 History of Past illness Narrative* Problem Noted Date Diagnosed Date Resolved Date Combined 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-relate d cataract of right eye 05/09/2021 06/03/2021 documented as of this encounter (statuses as of 12/10/2023) [facility]2021 History of Past illness Narrative* Problem Noted Date Diagnosed Date Resolved Date Combined 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-relate d cataract of right eye 05/09/2021 06/03/2021 documented as of this encounter (statuses as of 12/10/2023) [facility]2021 History of Past illness Narrative* Problem Noted Date Diagnosed Date Resolved Date Combined 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-relate d cataract of right eye 05/09/2021 06/03/2021 documented as of this encounter (statuses as of 12/10/2023) [facility]2021 History of Past illness Narrative* Problem Noted Date Diagnosed Date Resolved Date Combined 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-relate d cataract of right eye 05/09/2021 06/03/2021 documented as of this encounter (statuses as of 12/16/2023) [facility] [facility] History of Past illness Narrative* Problem Noted Date Diagnosed Date Resolved Date Combined 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-relate d cataract of right eye 05/09/2021 06/03/2021 documented as of this encounter (statuses as of 01/05/2024) [facility]08-06-2021 History of Past illness Narrative* Problem Noted Date Diagnosed Date Resolved Date Combined 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-relate d cataract of right eye 05/09/2021 06/03/2021 documented as of this encounter (statuses as of 01/07/2024) [facility]08-06-2021 History of Past illness Narrative* Problem Noted Date Diagnosed Date Resolved Date Combined 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-relate d cataract of right eye 05/09/2021 06/03/2021 documented as of this encounter (statuses as of 01/10/2024) [facility]08-06-2021 History of Past illness Narrative* Problem Noted Date Diagnosed Date Resolved Date Combined 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-relate d cataract of right eye 05/09/2021 06/03/2021 documented as of this encounter (statuses as of 01/13/2024) [facility]08-06-2021 History of Past illness Narrative* Problem Noted Date Resolved Date Combined 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-related cataract of right eye 05/09/2021 06/03/2021 documented as of this encounter (statuses as of 10/13/2022) [facility] note* Diagnosis Type 2 diabetes mellitus with both eyes affected by moderate nonproliferative retinopathy without macular edema, with long-term current use of insulin ([facility])- Primary Pseudophakia of both eyes Lens replaced by other means [facility] Diagnosis Encounter for screening mammogram for breast cancer [facility]* Diagnosis Chronic midline low back pain, unspecified whether sciatica present [facility]* Diagnosis Ptosis of eyelid, right- Primary Unspecified ptosis of eyelid Right eye sensitive to light Watery eyes Epiphora, unspecified as to cause 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) Type II or unspecified type diabetes mellitus with ophthalmic manifestations, not stated as uncontrolled [facility]* Diagnosis Ptosis of right eyelid- Primary Unspecified ptosis of eyelid Type 2 diabetes mellitus with both eyes affected by moderate nonproliferative retinopathy without macular edema, with long-term current use of insulin ([facility]) Pseudophakia of both eyes Lens replaced by other means [facility] Diagnosis Ptosis of right eyelid- Primary Unspecified ptosis of eyelid Type 2 diabetes mellitus with both eyes affected by moderate nonproliferative retinopathy without macular edema, with long-term current use of insulin ([facility]) Pseudophakia of both eyes Lens replaced by other means [facility]* Diagnosis Laceration of fifth toe of left foot, initial encounter- Primary [facility]* Diagnosis Chronic midline low back pain, unspecified whether sciatica present [facility] Diagnosis Chronic midline low back pain, unspecified whether sciatica present [facility]* Diagnosis Ptosis of eyelid, right- Primary Unspecified ptosis of eyelid Right eye sensitive to light [facility] History of [facility]-19- Primary Chronic hypoxemic respiratory failure (HCC) Chronic respiratory failure [facility] Diagnosis Chronic midline low back pain, unspecified whether sciatica present [facility]* Diagnosis Myasthenia gravis (HCC)- Primary Myasthenia gravis without exacerbation Acquired hypothyroidism Unspecified hypothyroidism 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) Type II or unspecified type diabetes mellitus with ophthalmic manifestations, not stated as uncontrolled Essential hypertension Unspecified essential hypertension Thrombocytopenia (HCC) Thrombocytopenia, unspecified [facility]* Diagnosis 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 Hypothyroidism (acquired) Unspecified hypothyroidism Myasthenia gravis (HCC) Myasthenia gravis without exacerbation [facility]* Diagnosis Postmenopausal atrophic vaginitis [facility]* Diagnosis 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 (HCC)- Primary Pseudophakia of both eyes Lens replaced by other means Ptosis of right eyelid Unspecified ptosis of eyelid [facility]* Diagnosis Uncontrolled type 2 diabetes with neuropathy Type II or unspecified type diabetes mellitus with neurological manifestations, uncontrolled 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) Type II or unspecified type diabetes mellitus with ophthalmic manifestations, not stated as uncontrolled [facility] Malignant neoplasm of thymus (HCC)- Primary Malignant neoplasm of thymus Myasthenia gravis (HCC) Myasthenia gravis without exacerbation [facility]* Diagnosis Chronic midline low back pain, unspecified whether sciatica present [facility]* Diagnosis Malignant neoplasm of thymus (HCC) Malignant neoplasm of thymus [facility]* Diagnosis Post-COVID chronic dyspnea- Primary Chronic hypoxemic respiratory failure (HCC) Chronic respiratory failure [facility]* Diagnosis Myasthenia gravis (HCC)- Primary Myasthenia gravis without exacerbation Type 2 diabetes mellitus with diabetic neuropathy, with long-term current use of insulin (HCC) Bilateral leg edema Edema Class 1 obesity due to excess calories without serious comorbidity with body mass index (BMI) of 34.0 to 34.9 in adult Dysuria [facility]* Diagnosis 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) Type II or unspecified type diabetes mellitus with ophthalmic manifestations, not stated as uncontrolled [facility] Diagnosis Onset Date Resolution Status Anemia acute Elevated lipase acute Leukocytosis acute Pericardial effusion acute Thrombocytopenia acute Urinary retention acute UTI (urinary tract infection) acute [facility] Work Phone: Evaluation note* Diagnosis Myasthenia gravis (HCC)- Primary Myasthenia gravis without exacerbation [facility]* Diagnosis 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 (HCC)- Primary Pseudophakia of both eyes Lens replaced by other means Ptosis of right eyelid Unspecified ptosis of eyelid Myasthenia gravis (HCC) Myasthenia gravis without exacerbation Dry eye syndrome of bilateral lacrimal glands Tear film insufficiency, unspecified Poorly controlled type 2 diabetes mellitus (HCC)- Primary Type II or unspecified type diabetes mellitus without mention of complication, not stated as uncontrolled Hypothyroidism (acquired) Unspecified hypothyroidism [facility]* Diagnosis Chronic midline low back pain, unspecified whether sciatica present Poorly controlled type 2 diabetes mellitus (HCC)- Primary Type II or unspecified type diabetes mellitus without mention of complication, not stated as uncontrolled Hypothyroidism (acquired) Unspecified hypothyroidism [facility]* Diagnosis Allergic rhinitis, unspecified seasonality, unspecified trigger Poorly controlled type 2 diabetes mellitus (HCC)- Primary Type II or unspecified type diabetes mellitus without mention of complication, not stated as uncontrolled Hypothyroidism (acquired) Unspecified hypothyroidism [facility]* Diagnosis Chronic midline low back pain, unspecified whether sciatica present Poorly controlled type 2 diabetes mellitus (HCC)- Primary Type II or unspecified type diabetes mellitus without mention of complication, not stated as uncontrolled Hypothyroidism (acquired) Unspecified hypothyroidism [facility]* Diagnosis Urinary retention Retention of urine, unspecified Complicated UTI (urinary tract infection) Urinary tract infection, site not specified 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) Type II or unspecified type diabetes mellitus with ophthalmic manifestations, not stated as uncontrolled Myasthenia gravis (HCC) Myasthenia gravis without exacerbation Poorly controlled type 2 diabetes mellitus (HCC)- Primary Type II or unspecified type diabetes mellitus without mention of complication, not stated as uncontrolled Hypothyroidism (acquired) Unspecified hypothyroidism [facility]* Diagnosis Esophageal dysphagia- Primary Dysphagia, pharyngoesophageal phase Chronic midline low back pain, unspecified whether sciatica present 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) Type II or unspecified type diabetes mellitus with ophthalmic manifestations, not stated as uncontrolled Myasthenia gravis (HCC) Myasthenia gravis without exacerbation Mixed hyperlipidemia Bilateral leg edema Edema Gastroesophageal reflux disease with esophagitis without hemorrhage Poorly controlled type 2 diabetes mellitus (HCC)- Primary Type II or unspecified type diabetes mellitus without mention of complication, not stated as uncontrolled Hypothyroidism (acquired) Unspecified hypothyroidism [facility]* Diagnosis Poorly controlled type 2 diabetes mellitus (HCC)- Primary Type II or unspecified type diabetes mellitus without mention of complication, not stated as uncontrolled Hypothyroidism (acquired) Unspecified hypothyroidism [facility]* Diagnosis Post-COVID chronic dyspnea- Primary Chronic hypoxemic respiratory failure (HCC) Chronic respiratory failure History of COVID-19 Former cigarette smoker Personal history of tobacco use, presenting hazards to health [facility] Diagnosis 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) Type II or unspecified type diabetes mellitus with ophthalmic manifestations, not stated as uncontrolled [facility]* Diagnosis 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) Type II or unspecified type diabetes mellitus with ophthalmic manifestations, not stated as uncontrolled [facility]* Diagnosis Encounter for screening mammogram for breast cancer [facility]* Diagnosis 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 (HCC)- Primary Pseudophakia of both eyes Lens replaced by other means Ptosis of right eyelid Unspecified ptosis of eyelid Myasthenia gravis (HCC) Myasthenia gravis without exacerbation Dry eye syndrome of bilateral lacrimal glands Tear film insufficiency, unspecified [facility]* Diagnosis Cardiac murmur- Primary Undiagnosed cardiac murmurs Generalized edema Edema Chronic midline low back pain, unspecified whether sciatica present Type 2 diabetes mellitus with diabetic neuropathy, with long-term current use of insulin (HCC) Obesity, Class III, BMI >= 40 Morbid obesity Encounter for therapeutic drug monitoring [facility]* Diagnosis Chronic midline low back pain, unspecified whether sciatica present [facility] Diagnosis Swelling of both hands Contact dermatitis due to chemicals Contact dermatitis and other eczema due to other chemical products Acquired hypothyroidism Unspecified hypothyroidism 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) Type II or unspecified type diabetes mellitus with ophthalmic manifestations, not stated as uncontrolled Mixed hyperlipidemia [facility]* Diagnosis Rash Rash and other nonspecific skin eruption [facility]* Diagnosis 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) Type II or unspecified type diabetes mellitus with ophthalmic manifestations, not stated as uncontrolled [facility] Diagnosis Generalized edema Edema [facility] Diagnosis Pericardial effusion (noninflammatory)- Primary Chronic hypoxemic respiratory failure (HCC) Chronic respiratory failure Chronic midline low back pain, unspecified whether sciatica present 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) Type II or unspecified type diabetes mellitus with ophthalmic manifestations, not stated as uncontrolled [facility]* Diagnosis Chronic midline low back pain, unspecified whether sciatica present- Primary Screening for ischemic heart disease- Primary [facility]* Diagnosis Screening for ischemic heart disease- Primary Pericardial effusion Unspecified disease of pericardium Essential hypertension Unspecified essential hypertension Mixed hyperlipidemia Post-COVID chronic dyspnea Obesity, Class II, BMI 35-39.9 Obesity, unspecified [facility]* Diagnosis Generalized edema Edema Chronic midline low back pain, unspecified whether sciatica present [facility]* Diagnosis Chronic midline low back pain, unspecified whether sciatica present [facility]* Diagnosis 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) Type II or unspecified type diabetes mellitus with ophthalmic manifestations, not stated as uncontrolled [facility] Diagnosis Chronic midline low back pain, unspecified whether sciatica present [facility] Diagnosis Chronic midline low back pain, unspecified whether sciatica present documented in this encounter [facility] note* Diagnosis Chronic midline low back pain, unspecified whether sciatica present documented in this encounter [facility] note* Diagnosis 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) Type II or unspecified type diabetes mellitus with ophthalmic manifestations, not stated as uncontrolled documented in this encounter [facility] note* Diagnosis Chronic midline low back pain, unspecified whether sciatica present documented in this encounter [facility] note* Diagnosis Chronic midline low back pain, unspecified whether sciatica present documented in this encounter [facility] note* Diagnosis Generalized edema Edema documented in this encounter [facility] noteNo assessment information availableWSelect [facility] [place] Work [facility]: [facility]* Diagnosis 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)- Primary Type II or unspecified type diabetes mellitus with ophthalmic manifestations, not stated as uncontrolled Chronic midline low back pain, unspecified whether sciatica present Acquired hypothyroidism Unspecified hypothyroidism Bilateral leg edema Edema Chronic hypoxemic respiratory failure (HCC) Chronic respiratory failure Essential hypertension Unspecified essential hypertension Myasthenia gravis (HCC) Myasthenia gravis without exacerbation Class 3 severe obesity due to excess calories with serious comorbidity and body mass index (BMI) of 40.0 to 44.9 in adult (HCC) Thrombocytopenia (HCC) Thrombocytopenia, unspecified Encounter for long-term current use of medication documented in this encounter [facility] note* Diagnosis Post-COVID chronic dyspnea Chronic hypoxemic respiratory failure (HCC) Chronic respiratory failure [facility] Diagnosis 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) Type II or unspecified type diabetes mellitus with ophthalmic manifestations, not stated as uncontrolled documented in this encounter [facility] note* Diagnosis Chronic midline low back pain, unspecified whether sciatica present [facility] Diagnosis 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) Type II or unspecified type diabetes mellitus with ophthalmic manifestations, not stated as uncontrolled [facility]* Diagnosis Chronic midline low back pain, unspecified whether sciatica present [facility] Diagnosis Postmenopausal atrophic vaginitis [facility] Diagnosis Swelling of both hands Contact dermatitis due to chemicals Contact dermatitis and other eczema due to other chemical products 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) Type II or unspecified type diabetes mellitus with ophthalmic manifestations, not stated as uncontrolled [facility]* Diagnosis Generalized edema Edema [facility]* Diagnosis Acquired hypothyroidism Unspecified hypothyroidism [facility]* Diagnosis Pericardial effusion- Primary Unspecified disease of pericardium Weight gain Abnormal weight gain Acquired hypothyroidism Unspecified hypothyroidism 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) Type II or unspecified type diabetes mellitus with ophthalmic manifestations, not stated as uncontrolled Leg swelling Swelling of limb [facility]* Diagnosis 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) Type II or unspecified type diabetes mellitus with ophthalmic manifestations, not stated as uncontrolled [facility]* Diagnosis Pericardial effusion- Primary Unspecified disease of pericardium Fall, initial encounter Right arm pain Pain in limb Right hand pain Pain in limb Acquired hypothyroidism Unspecified hypothyroidism Vitamin D deficiency Unspecified vitamin D deficiency Weight gain Abnormal weight gain Leg swelling Swelling of limb [facility] Diagnosis Chronic midline low back pain, unspecified whether sciatica present [facility]* Diagnosis 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)- Primary Type II or unspecified type diabetes mellitus with ophthalmic manifestations, not stated as uncontrolled Leg swelling Swelling of limb Pericardial effusion Unspecified disease of pericardium Fall, initial encounter Acquired hypothyroidism Unspecified hypothyroidism Essential hypertension Unspecified essential hypertension Chronic hypoxemic respiratory failure (HCC) Chronic respiratory failure [facility]* Diagnosis Lumbar spondylosis- Primary Lumbosacral spondylosis without myelopathy Myofascial pain Mylagia and myositis, unspecified [facility]* Diagnosis Acquired hypothyroidism Unspecified hypothyroidism Chronic midline low back pain, unspecified whether sciatica present [facility] Diagnosis Encounter for immunization- Primary Need for other specified prophylactic vaccination against single bacterial disease Screening for colon cancer Special screening for malignant neoplasms, colon Encounter for screening for lung cancer 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) Type II or unspecified type diabetes mellitus with ophthalmic manifestations, not stated as uncontrolled Acquired hypothyroidism Unspecified hypothyroidism [facility]* Diagnosis 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) Type II or unspecified type diabetes mellitus with ophthalmic manifestations, not stated as uncontrolled [facility]* Diagnosis Chronic midline low back pain, unspecified whether sciatica present [facility] Diagnosis Poorly controlled type 2 diabetes mellitus (HCC)- Primary Type II or unspecified type diabetes mellitus without mention of complication, not stated as uncontrolled [facility] Poorly controlled type 2 diabetes mellitus (HCC) Type II or unspecified type diabetes mellitus without mention of complication, not stated as uncontrolled [facility] Lumbar spondylosis Lumbosacral spondylosis without myelopathy [facility] Diagnosis Dyspnea and respiratory abnormalities Other dyspnea and respiratory abnormality Chest pain, unspecified type [facility] Diagnosis Superficial keratitis of right eye- Primary Superficial keratitis, unspecified Dry eye syndrome of bilateral lacrimal glands Tear film insufficiency, unspecified 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 (HCC) Pseudophakia of both eyes Lens replaced by other means Ptosis of right eyelid Unspecified ptosis of eyelid Myasthenia gravis (HCC) Myasthenia gravis without exacerbation [facility] Diagnosis Chronic midline low back pain, unspecified whether sciatica present [facility] Diagnosis Chronic midline low back pain, unspecified whether sciatica present [facility] Diagnosis Chronic midline low back pain, unspecified whether sciatica present documented in this encounter [facility]* Diagnosis 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)- Primary Type II or unspecified type diabetes mellitus with ophthalmic manifestations, not stated as uncontrolled Chronic SI joint pain Disorders of sacrum Acquired hypothyroidism Unspecified hypothyroidism Vitamin D deficiency Unspecified vitamin D deficiency Chronic midline low back pain, unspecified whether sciatica present documented in this encounter [facility] note* Diagnosis Encounter for screening mammogram for breast cancer documented in this encounter [facility] note* Diagnosis Allergic rhinitis, unspecified seasonality, unspecified trigger documented in this encounter [facility] note* Diagnosis Leg swelling Swelling of limb Weight gain Abnormal weight gain documented in this encounter [facility] note* Diagnosis Chronic midline low back pain, unspecified whether sciatica present Chronic SI joint pain Disorders of sacrum documented in this encounter [facility] note* Diagnosis Post-COVID chronic dyspnea- Primary Exertional dyspnea Other dyspnea and respiratory abnormality Former smoker Personal history of tobacco use, presenting hazards to health documented in this encounter [facility] note* Diagnosis Chronic midline low back pain, unspecified whether sciatica present documented in this encounter [facility] note* Diagnosis Leg swelling Swelling of limb Weight gain Abnormal weight gain documented in this encounter [facility] note* Diagnosis Leg swelling Swelling of limb Weight gain Abnormal weight gain documented in this encounter [facility] note* Diagnosis Post-COVID chronic dyspnea documented in this encounter [facility] note* Diagnosis 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)- Primary Type II or unspecified type diabetes mellitus with ophthalmic manifestations, not stated as uncontrolled Post-COVID chronic dyspnea Chronic hypoxemic respiratory failure (HCC) Chronic respiratory failure Vitamin D deficiency Unspecified vitamin D deficiency Acquired hypothyroidism Unspecified hypothyroidism Chronic midline low back pain, unspecified whether sciatica present Chronic SI joint pain Disorders of sacrum Encounter for therapeutic drug monitoring documented in this encounter [facility] note* Diagnosis Post-COVID chronic dyspnea documented in this encounter [facility] note* Diagnosis Encounter for screening for lung cancer- Primary Former smoker Personal history of tobacco use, presenting hazards to health documented in this encounter [facility] note* Diagnosis Leg swelling Swelling of limb Weight gain Abnormal weight gain [facility] Diagnosis Chronic midline low back pain, unspecified whether sciatica present [facility] Diagnosis Chronic midline low back pain, unspecified whether sciatica present Chronic SI joint pain Disorders of sacrum [facility]* Diagnosis Encounter for screening for lung cancer Former smoker Personal history of tobacco use, presenting hazards to health [facility] Diagnosis Chronic midline low back pain, unspecified whether sciatica present Chronic SI joint pain Disorders of sacrum [facility] Diagnosis Leg swelling Swelling of limb Weight gain Abnormal weight gain Chronic midline low back pain, unspecified whether sciatica present Chronic SI joint pain Disorders of sacrum [facility]* Diagnosis 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) Type II or unspecified type diabetes mellitus with ophthalmic manifestations, not stated as uncontrolled Generalized edema Edema documented in this encounter [facility] note* Diagnosis Leg swelling Swelling of limb Weight gain Abnormal weight gain [facility] Diagnosis Former smoker- Primary Personal history of tobacco use, presenting hazards to health [facility] Diagnosis Chronic midline low back pain, unspecified whether sciatica present- Primary Chronic SI joint pain Disorders of sacrum Lower urinary tract symptoms Other symptoms involving urinary system 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) Type II or unspecified type diabetes mellitus with ophthalmic manifestations, not stated as uncontrolled Leg swelling Swelling of limb [facility]* Diagnosis Type 2 diabetes (HCC)- Primary [facility]* Diagnosis Pericardial effusion- Primary Unspecified disease of pericardium Essential hypertension Unspecified essential hypertension Mixed hyperlipidemia [facility]* Diagnosis Type 2 diabetes (HCC)- Primary 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) Type II or unspecified type diabetes mellitus with ophthalmic manifestations, not stated as uncontrolled Poorly controlled type 2 diabetes mellitus (HCC) Type II or unspecified type diabetes mellitus without mention of complication, not stated as uncontrolled [facility] Diagnosis Poorly controlled type 2 diabetes mellitus (HCC) Type II or unspecified type diabetes mellitus without mention of complication, not stated as uncontrolled [facility] Diagnosis Poorly controlled type 2 diabetes mellitus (HCC) Type II or unspecified type diabetes mellitus without mention of complication, not stated as uncontrolled [facility] Diagnosis Acquired hypothyroidism Unspecified hypothyroidism [facility] Diagnosis Post-COVID chronic dyspnea- Primary Former smoker Personal history of tobacco use, presenting hazards to health Chronic hypoxemic respiratory failure (HCC) Chronic respiratory failure Obesity, Class II, BMI 35-39.9 Obesity, unspecified [facility] Diagnosis Chronic midline low back pain, unspecified whether sciatica present Chronic SI joint pain Disorders of sacrum [facility]* Diagnosis Type 2 diabetes (HCC)- Primary 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) Type II or unspecified type diabetes mellitus with ophthalmic manifestations, not stated as uncontrolled [facility] Diagnosis Mixed hyperlipidemia [facility] Diagnosis 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) Type II or unspecified type diabetes mellitus with ophthalmic manifestations, not stated as uncontrolled Mixed hyperlipidemia [facility]* Diagnosis Gastroesophageal reflux disease, unspecified whether esophagitis present [facility] Diagnosis Chronic midline low back pain, unspecified whether sciatica present Chronic SI joint pain Disorders of sacrum [facility]* Diagnosis Fall, subsequent encounter- Primary Debility Debility, unspecified Hypotension, unspecified hypotension type Hypoxia Hypoxemia Type 2 diabetes mellitus with diabetic neuropathy, with long-term current use of insulin (HCC) [facility]* Diagnosis Chronic midline low back pain, unspecified whether sciatica present Chronic SI joint pain Disorders of sacrum [facility]* Diagnosis Chronic hypoxemic respiratory failure (HCC) Chronic respiratory failure Post-COVID chronic dyspnea [facility] Diagnosis Injury of left rotator cuff, subsequent encounter- Primary Chronic midline low back pain, unspecified whether sciatica present Chronic SI joint pain Disorders of sacrum Dysuria Type 2 diabetes mellitus with diabetic neuropathy, with long-term current use of insulin (HCC) Mixed hyperlipidemia Acquired hypothyroidism Unspecified hypothyroidism Vitamin D deficiency Unspecified vitamin D deficiency Generalized edema Edema Chronic hypoxemic respiratory failure (HCC) Chronic respiratory failure Encounter for therapeutic drug monitoring documented in this encounter [facility] note* Diagnosis Acquired hypothyroidism Unspecified hypothyroidism documented in this encounter [facility] note* Diagnosis Establishing care with new doctor, encounter for- Primary Other reasons for seeking consultation Type II or unspecified type diabetes mellitus without mention of complication, uncontrolled Hyperlipidemia Other and unspecified hyperlipidemia Hypothyroid Unspecified hypothyroidism Kidney stone Calculus of kidney Noncompliance Personal history of noncompliance with medical treatment, presenting hazards to health Kidney stone on left side Calculus of kidney Type II or unspecified type diabetes mellitus without mention of complication, uncontrolled- Primary Hypothyroid Unspecified hypothyroidism Hyperlipidemia Other and unspecified hyperlipidemia Diabetic eye exam (HCC) Type II or unspecified type diabetes mellitus without mention of complication, not stated as uncontrolled Type II or unspecified type diabetes mellitus without mention of complication, uncontrolled- Primary Diabetic eye exam (HCC) Type II or unspecified type diabetes mellitus without mention of complication, not stated as uncontrolled Hyperlipidemia Other and unspecified hyperlipidemia Hypothyroid Unspecified hypothyroidism Rash Rash and other nonspecific skin eruption Myasthenia gravis (HCC)- Primary Myasthenia gravis without exacerbation Type 2 diabetes mellitus with diabetic neuropathy, with long-term current use of insulin (HCC) Post-COVID chronic dyspnea Chronic hypoxemic respiratory failure (HCC) Chronic respiratory failure Osteoarthritis of hip, unspecified laterality, unspecified osteoarthritis type documented in this encounter [facility] note* Diagnosis Establishing care with new doctor, encounter for- Primary Other reasons for seeking consultation Type II or unspecified type diabetes mellitus without mention of complication, uncontrolled Hyperlipidemia Other and unspecified hyperlipidemia Hypothyroid Unspecified hypothyroidism Kidney stone Calculus of kidney Noncompliance Personal history of noncompliance with medical treatment, presenting hazards to health Kidney stone on left side Calculus of kidney Type II or unspecified type diabetes mellitus without mention of complication, uncontrolled- Primary Hypothyroid Unspecified hypothyroidism Hyperlipidemia Other and unspecified hyperlipidemia Diabetic eye exam (HCC) Type II or unspecified type diabetes mellitus without mention of complication, not stated as uncontrolled Type II or unspecified type diabetes mellitus without mention of complication, uncontrolled- Primary Diabetic eye exam (HCC) Type II or unspecified type diabetes mellitus without mention of complication, not stated as uncontrolled Hyperlipidemia Other and unspecified hyperlipidemia Hypothyroid Unspecified hypothyroidism Rash Rash and other nonspecific skin eruption Type 2 diabetes (HCC)- Primary Poorly controlled type 2 diabetes mellitus (HCC) Type II or unspecified type diabetes mellitus without mention of complication, not stated as uncontrolled documented in this encounter [facility] note* Diagnosis Establishing care with new doctor, encounter for- Primary Other reasons for seeking consultation Type II or unspecified type diabetes mellitus without mention of complication, uncontrolled Hyperlipidemia Other and unspecified hyperlipidemia Hypothyroid Unspecified hypothyroidism Kidney stone Calculus of kidney Noncompliance Personal history of noncompliance with medical treatment, presenting hazards to health Kidney stone on left side Calculus of kidney Type II or unspecified type diabetes mellitus without mention of complication, uncontrolled- Primary Hypothyroid Unspecified hypothyroidism Hyperlipidemia Other and unspecified hyperlipidemia Diabetic eye exam (HCC) Type II or unspecified type diabetes mellitus without mention of complication, not stated as uncontrolled Type II or unspecified type diabetes mellitus without mention of complication, uncontrolled- Primary Diabetic eye exam (HCC) Type II or unspecified type diabetes mellitus without mention of complication, not stated as uncontrolled Hyperlipidemia Other and unspecified hyperlipidemia Hypothyroid Unspecified hypothyroidism Rash Rash and other nonspecific skin eruption Generalized edema- Primary Edema documented in this encounter [facility] note* Diagnosis Establishing care with new doctor, encounter for- Primary Other reasons for seeking consultation Type II or unspecified type diabetes mellitus without mention of complication, uncontrolled Hyperlipidemia Other and unspecified hyperlipidemia Hypothyroid Unspecified hypothyroidism Kidney stone Calculus of kidney Noncompliance Personal history of noncompliance with medical treatment, presenting hazards to health Kidney stone on left side Calculus of kidney Type II or unspecified type diabetes mellitus without mention of complication, uncontrolled- Primary Hypothyroid Unspecified hypothyroidism Hyperlipidemia Other and unspecified hyperlipidemia Diabetic eye exam (HCC) Type II or unspecified type diabetes mellitus without mention of complication, not stated as uncontrolled Type II or unspecified type diabetes mellitus without mention of complication, uncontrolled- Primary Diabetic eye exam (HCC) Type II or unspecified type diabetes mellitus without mention of complication, not stated as uncontrolled Hyperlipidemia Other and unspecified hyperlipidemia Hypothyroid Unspecified hypothyroidism Rash Rash and other nonspecific skin eruption Chronic midline low back pain, unspecified whether sciatica present Chronic SI joint pain Disorders of sacrum documented in this encounter [facility] note* Diagnosis Establishing care with new doctor, encounter for- Primary Other reasons for seeking consultation Type II or unspecified type diabetes mellitus without mention of complication, uncontrolled Hyperlipidemia Other and unspecified hyperlipidemia Hypothyroid Unspecified hypothyroidism Kidney stone Calculus of kidney Noncompliance Personal history of noncompliance with medical treatment, presenting hazards to health Kidney stone on left side Calculus of kidney Type II or unspecified type diabetes mellitus without mention of complication, uncontrolled- Primary Hypothyroid Unspecified hypothyroidism Hyperlipidemia Other and unspecified hyperlipidemia Diabetic eye exam (HCC) Type II or unspecified type diabetes mellitus without mention of complication, not stated as uncontrolled Type II or unspecified type diabetes mellitus without mention of complication, uncontrolled- Primary Diabetic eye exam (HCC) Type II or unspecified type diabetes mellitus without mention of complication, not stated as uncontrolled Hyperlipidemia Other and unspecified hyperlipidemia Hypothyroid Unspecified hypothyroidism Rash Rash and other nonspecific skin eruption JOSIE (acute kidney injury) ([facility])- Primary Acute kidney failure, unspecified Type 2 diabetes mellitus with diabetic neuropathy, with long-term current use of insulin ([facility]) Leg swelling Swelling of limb Injury of humerus, left, subsequent encounter Type 2 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 ([facility]) Type II or unspecified type diabetes mellitus with ophthalmic manifestations, not stated as uncontrolled Generalized edema Edema Chronic midline low back pain, unspecified whether sciatica present documented in this encounter [facility] note* Diagnosis Establishing care with new doctor, encounter for- Primary Other reasons for seeking consultation Type II or unspecified type diabetes mellitus without mention of complication, uncontrolled Hyperlipidemia Other and unspecified hyperlipidemia Hypothyroid Unspecified hypothyroidism Kidney stone Calculus of kidney Noncompliance Personal history of noncompliance with medical treatment, presenting hazards to health Kidney stone on left side Calculus of kidney Type II or unspecified type diabetes mellitus without mention of complication, uncontrolled- Primary Hypothyroid Unspecified hypothyroidism Hyperlipidemia Other and unspecified hyperlipidemia Diabetic eye exam (HCC) Type II or unspecified type diabetes mellitus without mention of complication, not stated as uncontrolled Type II or unspecified type diabetes mellitus without mention of complication, uncontrolled- Primary Diabetic eye exam (HCC) Type II or unspecified type diabetes mellitus without mention of complication, not stated as uncontrolled Hyperlipidemia Other and unspecified hyperlipidemia Hypothyroid Unspecified hypothyroidism Rash Rash and other nonspecific skin eruption Chronic midline low back pain, unspecified whether sciatica present documented in this encounter [facility] note* Diagnosis Establishing care with new doctor, encounter for- Primary Other reasons for seeking consultation Type II or unspecified type diabetes mellitus without mention of complication, uncontrolled Hyperlipidemia Other and unspecified hyperlipidemia Hypothyroid Unspecified hypothyroidism Kidney stone Calculus of kidney Noncompliance Personal history of noncompliance with medical treatment, presenting hazards to health Kidney stone on left side Calculus of kidney Type II or unspecified type diabetes mellitus without mention of complication, uncontrolled- Primary Hypothyroid Unspecified hypothyroidism Hyperlipidemia Other and unspecified hyperlipidemia Diabetic eye exam (HCC) Type II or unspecified type diabetes mellitus without mention of complication, not stated as uncontrolled Type II or unspecified type diabetes mellitus without mention of complication, uncontrolled- Primary Diabetic eye exam (HCC) Type II or unspecified type diabetes mellitus without mention of complication, not stated as uncontrolled Hyperlipidemia Other and unspecified hyperlipidemia Hypothyroid Unspecified hypothyroidism Rash Rash and other nonspecific skin eruption Chronic midline low back pain, unspecified whether sciatica present Chronic SI joint pain Disorders of sacrum documented in this encounter [facility] note* Diagnosis Establishing care with new doctor, encounter for- Primary Other reasons for seeking consultation Type II or unspecified type diabetes mellitus without mention of complication, uncontrolled Hyperlipidemia Other and unspecified hyperlipidemia Hypothyroid Unspecified hypothyroidism Kidney stone Calculus of kidney Noncompliance Personal history of noncompliance with medical treatment, presenting hazards to health Kidney stone on left side Calculus of kidney Type II or unspecified type diabetes mellitus without mention of complication, uncontrolled- Primary Hypothyroid Unspecified hypothyroidism Hyperlipidemia Other and unspecified hyperlipidemia Diabetic eye exam (HCC) Type II or unspecified type diabetes mellitus without mention of complication, not stated as uncontrolled Type II or unspecified type diabetes mellitus without mention of complication, uncontrolled- Primary Diabetic eye exam (HCC) Type II or unspecified type diabetes mellitus without mention of complication, not stated as uncontrolled Hyperlipidemia Other and unspecified hyperlipidemia Hypothyroid Unspecified hypothyroidism Rash Rash and other nonspecific skin eruption Chronic midline low back pain, unspecified whether sciatica present- Primary Chronic SI joint pain Disorders of sacrum Injury of left rotator cuff, subsequent encounter Chronic hypoxemic respiratory failure (HCC) Chronic respiratory failure Fall, subsequent encounter Debility Debility, unspecified Post-COVID chronic dyspnea documented in this encounter [facility] note* Diagnosis Establishing care with new doctor, encounter for- Primary Other reasons for seeking consultation Type II or unspecified type diabetes mellitus without mention of complication, uncontrolled Hyperlipidemia Other and unspecified hyperlipidemia Hypothyroid Unspecified hypothyroidism Kidney stone Calculus of kidney Noncompliance Personal history of noncompliance with medical treatment, presenting hazards to health Kidney stone on left side Calculus of kidney Type II or unspecified type diabetes mellitus without mention of complication, uncontrolled- Primary Hypothyroid Unspecified hypothyroidism Hyperlipidemia Other and unspecified hyperlipidemia Diabetic eye exam (HCC) Type II or unspecified type diabetes mellitus without mention of complication, not stated as uncontrolled Type II or unspecified type diabetes mellitus without mention of complication, uncontrolled- Primary Diabetic eye exam (HCC) Type II or unspecified type diabetes mellitus without mention of complication, not stated as uncontrolled Hyperlipidemia Other and unspecified hyperlipidemia Hypothyroid Unspecified hypothyroidism Rash Rash and other nonspecific skin eruption Injury of left rotator cuff, subsequent encounter- Primary Chronic midline low back pain, unspecified whether sciatica present Chronic SI joint pain Disorders of sacrum Debility Debility, unspecified JOSIE (acute kidney injury) (HCC) Acute kidney failure, unspecified Type 2 diabetes mellitus with diabetic neuropathy, with long-term current use of insulin ([facility]) Acquired hypothyroidism Unspecified hypothyroidism Essential hypertension Unspecified essential hypertension documented in this encounter [facility] note* Diagnosis Establishing care with new doctor, encounter for- Primary Other reasons for seeking consultation Type II or unspecified type diabetes mellitus without mention of complication, uncontrolled Hyperlipidemia Other and unspecified hyperlipidemia Hypothyroid Unspecified hypothyroidism Kidney stone Calculus of kidney Noncompliance Personal history of noncompliance with medical treatment, presenting hazards to health Kidney stone on left side Calculus of kidney Type II or unspecified type diabetes mellitus without mention of complication, uncontrolled- Primary Hypothyroid Unspecified hypothyroidism Hyperlipidemia Other and unspecified hyperlipidemia Diabetic eye exam (HCC) Type II or unspecified type diabetes mellitus without mention of complication, not stated as uncontrolled Type II or unspecified type diabetes mellitus without mention of complication, uncontrolled- Primary Diabetic eye exam (HCC) Type II or unspecified type diabetes mellitus without mention of complication, not stated as uncontrolled Hyperlipidemia Other and unspecified hyperlipidemia Hypothyroid Unspecified hypothyroidism Rash Rash and other nonspecific skin eruption Fall, initial encounter Chronic SI joint pain Disorders of sacrum documented in this encounter [facility] note* Diagnosis Establishing care with new doctor, encounter for- Primary Other reasons for seeking consultation Type II or unspecified type diabetes mellitus without mention of complication, uncontrolled Hyperlipidemia Other and unspecified hyperlipidemia Hypothyroid Unspecified hypothyroidism Kidney stone Calculus of kidney Noncompliance Personal history of noncompliance with medical treatment, presenting hazards to health Kidney stone on left side Calculus of kidney Type II or unspecified type diabetes mellitus without mention of complication, uncontrolled- Primary Hypothyroid Unspecified hypothyroidism Hyperlipidemia Other and unspecified hyperlipidemia Diabetic eye exam (HCC) Type II or unspecified type diabetes mellitus without mention of complication, not stated as uncontrolled Type II or unspecified type diabetes mellitus without mention of complication, uncontrolled- Primary Diabetic eye exam (HCC) Type II or unspecified type diabetes mellitus without mention of complication, not stated as uncontrolled Hyperlipidemia Other and unspecified hyperlipidemia Hypothyroid Unspecified hypothyroidism Rash Rash and other nonspecific skin eruption Injury of left rotator cuff, subsequent encounter documented in this encounter [facility] note* Diagnosis Establishing care with new doctor, encounter for- Primary Other reasons for seeking consultation Type II or unspecified type diabetes mellitus without mention of complication, uncontrolled Hyperlipidemia Other and unspecified hyperlipidemia Hypothyroid Unspecified hypothyroidism Kidney stone Calculus of kidney Noncompliance Personal history of noncompliance with medical treatment, presenting hazards to [facility] Kidney stone on left side Calculus of kidney Type II or unspecified type diabetes mellitus without mention of complication, uncontrolled- Primary Hypothyroid Unspecified hypothyroidism Hyperlipidemia Other and unspecified hyperlipidemia Diabetic eye exam (HCC) Type II or unspecified type diabetes mellitus without mention of complication, not stated as uncontrolled Type II or unspecified type diabetes mellitus without mention of complication, uncontrolled- Primary Diabetic eye exam (HCC) Type II or unspecified type diabetes mellitus without mention of complication, not stated as uncontrolled Hyperlipidemia Other and unspecified hyperlipidemia Hypothyroid Unspecified hypothyroidism Rash Rash and other nonspecific skin eruption Fall, initial encounter Right arm pain Pain in limb Right hand pain Pain in limb documented in this encounter [facility] note* Diagnosis Establishing care with new doctor, encounter for- Primary Other reasons for seeking consultation Type II or unspecified type diabetes mellitus without mention of complication, uncontrolled Hyperlipidemia Other and unspecified hyperlipidemia Hypothyroid Unspecified hypothyroidism Kidney stone Calculus of kidney Noncompliance Personal history of noncompliance with medical treatment, presenting hazards to [facility] Kidney stone on left side Calculus of kidney Type II or unspecified type diabetes mellitus without mention of complication, uncontrolled- Primary Hypothyroid Unspecified hypothyroidism Hyperlipidemia Other and unspecified hyperlipidemia Diabetic eye exam (HCC) Type II or unspecified type diabetes mellitus without mention of complication, not stated as uncontrolled Type II or unspecified type diabetes mellitus without mention of complication, uncontrolled- Primary Diabetic eye exam (HCC) Type II or unspecified type diabetes mellitus without mention of complication, not stated as uncontrolled Hyperlipidemia Other and unspecified hyperlipidemia Hypothyroid Unspecified hypothyroidism Rash Rash and other nonspecific skin eruption JOSIE (acute kidney injury) (HCC)- Primary Acute kidney failure, unspecified Type 2 diabetes mellitus with diabetic neuropathy, with long-term current use of insulin (HCC) documented in this encounter [facility] note* Diagnosis Establishing care with new doctor, encounter for- Primary Other reasons for seeking consultation Type II or unspecified type diabetes mellitus without mention of complication, uncontrolled Hyperlipidemia Other and unspecified hyperlipidemia Hypothyroid Unspecified hypothyroidism Kidney stone Calculus of kidney Noncompliance Personal history of noncompliance with medical treatment, presenting hazards to health Kidney stone on left side Calculus of kidney Type II or unspecified type diabetes mellitus without mention of complication, uncontrolled- Primary Hypothyroid Unspecified hypothyroidism Hyperlipidemia Other and unspecified hyperlipidemia Diabetic eye exam (HCC) Type II or unspecified type diabetes mellitus without mention of complication, not stated as uncontrolled Type II or unspecified type diabetes mellitus without mention of complication, uncontrolled- Primary Diabetic eye exam (HCC) Type II or unspecified type diabetes mellitus without mention of complication, not stated as uncontrolled Hyperlipidemia Other and unspecified hyperlipidemia Hypothyroid Unspecified hypothyroidism Rash Rash and other nonspecific skin eruption Other closed nondisplaced fracture of proximal end of left humerus, initial encounter documented in this encounter [facility] note* Diagnosis Establishing care with new doctor, encounter for- Primary Other reasons for seeking consultation Type II or unspecified type diabetes mellitus without mention of complication, uncontrolled Hyperlipidemia Other and unspecified hyperlipidemia Hypothyroid Unspecified hypothyroidism Kidney stone Calculus of kidney Noncompliance Personal history of noncompliance with medical treatment, presenting hazards to [facility] Kidney stone on left side Calculus of kidney Type II or unspecified type diabetes mellitus without mention of complication, uncontrolled- Primary Hypothyroid Unspecified hypothyroidism Hyperlipidemia Other and unspecified hyperlipidemia Diabetic eye exam (HCC) Type II or unspecified type diabetes mellitus without mention of complication, not stated as uncontrolled Type II or unspecified type diabetes mellitus without mention of complication, uncontrolled- Primary Diabetic eye exam (HCC) Type II or unspecified type diabetes mellitus without mention of complication, not stated as uncontrolled Hyperlipidemia Other and unspecified hyperlipidemia Hypothyroid Unspecified hypothyroidism Rash Rash and other nonspecific skin eruption Chronic midline low back pain, unspecified whether sciatica present Chronic SI joint pain Disorders of sacrum documented in this encounter [facility] note* Diagnosis Establishing care with new doctor, encounter for- Primary Other reasons for seeking consultation Type II or unspecified type diabetes mellitus without mention of complication, uncontrolled Hyperlipidemia Other and unspecified hyperlipidemia Hypothyroid Unspecified hypothyroidism Kidney stone Calculus of kidney Noncompliance Personal history of noncompliance with medical treatment, presenting hazards to health Kidney stone on left side Calculus of kidney Type II or unspecified type diabetes mellitus without mention of complication, uncontrolled- Primary Hypothyroid Unspecified hypothyroidism Hyperlipidemia Other and unspecified hyperlipidemia Diabetic eye exam (HCC) Type II or unspecified type diabetes mellitus without mention of complication, not stated as uncontrolled Type II or unspecified type diabetes mellitus without mention of complication, uncontrolled- Primary Diabetic eye exam (HCC) Type II or unspecified type diabetes mellitus without mention of complication, not stated as uncontrolled Hyperlipidemia Other and unspecified hyperlipidemia Hypothyroid Unspecified hypothyroidism Rash Rash and other nonspecific skin eruption Other closed nondisplaced fracture of proximal end of left humerus, initial encounter- Primary Injury of left rotator cuff, subsequent encounter Other closed nondisplaced fracture of proximal end of left humerus, initial encounter documented in this encounter [facility] note* Diagnosis Establishing care with new doctor, encounter for- Primary Other reasons for seeking consultation Type II or unspecified type diabetes mellitus without mention of complication, uncontrolled Hyperlipidemia Other and unspecified hyperlipidemia Hypothyroid Unspecified hypothyroidism Kidney stone Calculus of kidney Noncompliance Personal history of noncompliance with medical treatment, presenting hazards to health Kidney stone on left side Calculus of kidney Type II or unspecified type diabetes mellitus without mention of complication, uncontrolled- Primary Hypothyroid Unspecified hypothyroidism Hyperlipidemia Other and unspecified hyperlipidemia Diabetic eye exam (HCC) Type II or unspecified type diabetes mellitus without mention of complication, not stated as uncontrolled Type II or unspecified type diabetes mellitus without mention of complication, uncontrolled- Primary Diabetic eye exam (HCC) Type II or unspecified type diabetes mellitus without mention of complication, not stated as uncontrolled Hyperlipidemia Other and unspecified hyperlipidemia Hypothyroid Unspecified hypothyroidism Rash Rash and other nonspecific skin eruption Gastroesophageal reflux disease, unspecified whether esophagitis present Chronic midline low back pain, unspecified whether sciatica present Chronic SI joint pain Disorders of sacrum documented in this encounter [facility] note* Diagnosis Establishing care with new doctor, encounter for- Primary Other reasons for seeking consultation Type II or unspecified type diabetes mellitus without mention of complication, uncontrolled Hyperlipidemia Other and unspecified hyperlipidemia Hypothyroid Unspecified hypothyroidism Kidney stone Calculus of kidney Noncompliance Personal history of noncompliance with medical treatment, presenting hazards to health Kidney stone on left side Calculus of kidney Type II or unspecified type diabetes mellitus without mention of complication, uncontrolled- Primary Hypothyroid Unspecified hypothyroidism Hyperlipidemia Other and unspecified hyperlipidemia Diabetic eye exam (HCC) Type II or unspecified type diabetes mellitus without mention of complication, not stated as uncontrolled Type II or unspecified type diabetes mellitus without mention of complication, uncontrolled- Primary Diabetic eye exam (HCC) Type II or unspecified type diabetes mellitus without mention of complication, not stated as uncontrolled Hyperlipidemia Other and unspecified hyperlipidemia Hypothyroid Unspecified hypothyroidism Rash Rash and other nonspecific skin eruption Hypertensive chronic kidney disease, unspecified CKD stage- Primary documented in this encounter [facility] note* Diagnosis Establishing care with new doctor, encounter for- Primary Other reasons for seeking consultation Type II or unspecified type diabetes mellitus without mention of complication, uncontrolled Hyperlipidemia Other and unspecified hyperlipidemia Hypothyroid Unspecified hypothyroidism Kidney stone Calculus of kidney Noncompliance Personal history of noncompliance with medical treatment, presenting hazards to health Kidney stone on left side Calculus of kidney Type II or unspecified type diabetes mellitus without mention of complication, uncontrolled- Primary Hypothyroid Unspecified hypothyroidism Hyperlipidemia Other and unspecified hyperlipidemia Diabetic eye exam (HCC) Type II or unspecified type diabetes mellitus without mention of complication, not stated as uncontrolled Type II or unspecified type diabetes mellitus without mention of complication, uncontrolled- Primary Diabetic eye exam (HCC) Type II or unspecified type diabetes mellitus without mention of complication, not stated as uncontrolled Hyperlipidemia Other and unspecified hyperlipidemia Hypothyroid Unspecified hypothyroidism Rash Rash and other nonspecific skin eruption Chronic midline low back pain, unspecified whether sciatica present Chronic SI joint pain Disorders of sacrum 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) Type II or unspecified type diabetes mellitus with ophthalmic manifestations, not stated as uncontrolled documented in this encounter [facility] note* Diagnosis Establishing care with new doctor, encounter for- Primary Other reasons for seeking consultation Type II or unspecified type diabetes mellitus without mention of complication, uncontrolled Hyperlipidemia Other and unspecified hyperlipidemia Hypothyroid Unspecified hypothyroidism Kidney stone Calculus of kidney Noncompliance Personal history of noncompliance with medical treatment, presenting hazards to health Kidney stone on left side Calculus of kidney Type II or unspecified type diabetes mellitus without mention of complication, uncontrolled- Primary Hypothyroid Unspecified hypothyroidism Hyperlipidemia Other and unspecified hyperlipidemia Diabetic eye exam (HCC) Type II or unspecified type diabetes mellitus without mention of complication, not stated as uncontrolled Type II or unspecified type diabetes mellitus without mention of complication, uncontrolled- Primary Diabetic eye exam (HCC) Type II or unspecified type diabetes mellitus without mention of complication, not stated as uncontrolled Hyperlipidemia Other and unspecified hyperlipidemia Hypothyroid Unspecified hypothyroidism Rash Rash and other nonspecific skin eruption Chronic midline low back pain, unspecified whether sciatica present Chronic SI joint pain Disorders of sacrum documented in this encounter [facility] note* Diagnosis Establishing care with new doctor, encounter for- Primary Other reasons for seeking consultation Type II or unspecified type diabetes mellitus without mention of complication, uncontrolled Hyperlipidemia Other and unspecified hyperlipidemia Hypothyroid Unspecified hypothyroidism Kidney stone Calculus of kidney Noncompliance Personal history of noncompliance with medical treatment, presenting hazards to health Kidney stone on left side Calculus of kidney Type II or unspecified type diabetes mellitus without mention of complication, uncontrolled- Primary Hypothyroid Unspecified hypothyroidism Hyperlipidemia Other and unspecified hyperlipidemia Diabetic eye exam (HCC) Type II or unspecified type diabetes mellitus without mention of complication, not stated as uncontrolled Type II or unspecified type diabetes mellitus without mention of complication, uncontrolled- Primary Diabetic eye exam (HCC) Type II or unspecified type diabetes mellitus without mention of complication, not stated as uncontrolled Hyperlipidemia Other and unspecified hyperlipidemia Hypothyroid Unspecified hypothyroidism Rash Rash and other nonspecific skin eruption Chronic midline low back pain, unspecified whether sciatica present Chronic SI joint pain Disorders of sacrum documented in this encounter [facility] note* Diagnosis Establishing care with new doctor, encounter for- Primary Other reasons for seeking consultation Type II or unspecified type diabetes mellitus without mention of complication, uncontrolled Hyperlipidemia Other and unspecified hyperlipidemia Hypothyroid Unspecified hypothyroidism Kidney stone Calculus of kidney Noncompliance Personal history of noncompliance with medical treatment, presenting hazards to [facility] Kidney stone on left side Calculus of kidney Type II or unspecified type diabetes mellitus without mention of complication, uncontrolled- Primary Hypothyroid Unspecified hypothyroidism Hyperlipidemia Other and unspecified hyperlipidemia Diabetic eye exam (HCC) Type II or unspecified type diabetes mellitus without mention of complication, not stated as uncontrolled Type II or unspecified type diabetes mellitus without mention of complication, uncontrolled- Primary Diabetic eye exam (HCC) Type II or unspecified type diabetes mellitus without mention of complication, not stated as uncontrolled Hyperlipidemia Other and unspecified hyperlipidemia Hypothyroid Unspecified hypothyroidism Rash Rash and other nonspecific skin eruption Pericardial effusion- Primary Unspecified disease of pericardium Chronic diastolic congestive heart failure (HCC) Chronic diastolic heart failure Essential hypertension Unspecified essential hypertension Mixed hyperlipidemia PÉREZ (dyspnea on exertion) Other dyspnea and respiratory abnormality documented in this encounter [facility] note* Diagnosis Establishing care with new doctor, encounter for- Primary Other reasons for seeking consultation Type II or unspecified type diabetes mellitus without mention of complication, uncontrolled Hyperlipidemia Other and unspecified hyperlipidemia Hypothyroid Unspecified hypothyroidism Kidney stone Calculus of kidney Noncompliance Personal history of noncompliance with medical treatment, presenting hazards to health Kidney stone on left side Calculus of kidney Type II or unspecified type diabetes mellitus without mention of complication, uncontrolled- Primary Hypothyroid Unspecified hypothyroidism Hyperlipidemia Other and unspecified hyperlipidemia Diabetic eye exam (HCC) Type II or unspecified type diabetes mellitus without mention of complication, not stated as uncontrolled Type II or unspecified type diabetes mellitus without mention of complication, uncontrolled- Primary Diabetic eye exam (HCC) Type II or unspecified type diabetes mellitus without mention of complication, not stated as uncontrolled Hyperlipidemia Other and unspecified hyperlipidemia Hypothyroid Unspecified hypothyroidism Rash Rash and other nonspecific skin eruption Chronic midline low back pain, unspecified whether sciatica present Chronic SI joint pain Disorders of sacrum documented in this encounter [facility] note* Diagnosis Establishing care with new doctor, encounter for- Primary Other reasons for seeking consultation Type II or unspecified type diabetes mellitus without mention of complication, uncontrolled Hyperlipidemia Other and unspecified hyperlipidemia Hypothyroid Unspecified hypothyroidism Kidney stone Calculus of kidney Noncompliance Personal history of noncompliance with medical treatment, presenting hazards to health Kidney stone on left side Calculus of kidney Type II or unspecified type diabetes mellitus without mention of complication, uncontrolled- Primary Hypothyroid Unspecified hypothyroidism Hyperlipidemia Other and unspecified hyperlipidemia Diabetic eye exam (HCC) Type II or unspecified type diabetes mellitus without mention of complication, not stated as uncontrolled Type II or unspecified type diabetes mellitus without mention of complication, uncontrolled- Primary Diabetic eye exam (HCC) Type II or unspecified type diabetes mellitus without mention of complication, not stated as uncontrolled Hyperlipidemia Other and unspecified hyperlipidemia Hypothyroid Unspecified hypothyroidism Rash Rash and other nonspecific skin eruption Encounter for screening mammogram for breast cancer documented in this encounter [facility] note* Diagnosis Establishing care with new doctor, encounter for- Primary Other reasons for seeking consultation Type II or unspecified type diabetes mellitus without mention of complication, uncontrolled Hyperlipidemia Other and unspecified hyperlipidemia Hypothyroid Unspecified hypothyroidism Kidney stone Calculus of kidney Noncompliance Personal history of noncompliance with medical treatment, presenting hazards to health Kidney stone on left side Calculus of kidney Type II or unspecified type diabetes mellitus without mention of complication, uncontrolled- Primary Hypothyroid Unspecified hypothyroidism Hyperlipidemia Other and unspecified hyperlipidemia Diabetic eye exam (HCC) Type II or unspecified type diabetes mellitus without mention of complication, not stated as uncontrolled Type II or unspecified type diabetes mellitus without mention of complication, uncontrolled- Primary Diabetic eye exam (HCC) Type II or unspecified type diabetes mellitus without mention of complication, not stated as uncontrolled Hyperlipidemia Other and unspecified hyperlipidemia Hypothyroid Unspecified hypothyroidism Rash Rash and other nonspecific skin eruption Localized swelling of left lower extremity- Primary UTI symptoms Other symptoms involving urinary system Hyponatremia Hyposmolality and/or hyponatremia Pedal edema Edema Hypoalbuminemia Other disorders of plasma protein metabolism Weight gain Abnormal weight gain Fatigue, unspecified type documented in this encounter [facility] note* Diagnosis Establishing care with new doctor, encounter for- Primary Other reasons for seeking consultation Type II or unspecified type diabetes mellitus without mention of complication, uncontrolled Hyperlipidemia Other and unspecified hyperlipidemia Hypothyroid Unspecified hypothyroidism Kidney stone Calculus of kidney Noncompliance Personal history of noncompliance with medical treatment, presenting hazards to [facility] Kidney stone on left side Calculus of kidney Type II or unspecified type diabetes mellitus without mention of complication, uncontrolled- Primary Hypothyroid Unspecified hypothyroidism Hyperlipidemia Other and unspecified hyperlipidemia Diabetic eye exam (HCC) Type II or unspecified type diabetes mellitus without mention of complication, not stated as uncontrolled Type II or unspecified type diabetes mellitus without mention of complication, uncontrolled- Primary Diabetic eye exam (HCC) Type II or unspecified type diabetes mellitus without mention of complication, not stated as uncontrolled Hyperlipidemia Other and unspecified hyperlipidemia Hypothyroid Unspecified hypothyroidism Rash Rash and other nonspecific skin eruption Chronic hypoxemic respiratory failure (HCC)- Primary Chronic respiratory failure Post-COVID chronic dyspnea Former smoker Personal history of tobacco use, presenting hazards to [facility] Class 3 severe obesity with body mass index (BMI) of 40.0 to 44.9 in adult, unspecified obesity type, unspecified whether serious comorbidity present (HCC) documented in this encounter [facility] note* Diagnosis Establishing care with new doctor, encounter for- Primary Other reasons for seeking consultation Type II or unspecified type diabetes mellitus without mention of complication, uncontrolled Hyperlipidemia Other and unspecified hyperlipidemia Hypothyroid Unspecified hypothyroidism Kidney stone Calculus of kidney Noncompliance Personal history of noncompliance with medical treatment, presenting hazards to health Kidney stone on left side Calculus of kidney Type II or unspecified type diabetes mellitus without mention of complication, uncontrolled- Primary Hypothyroid Unspecified hypothyroidism Hyperlipidemia Other and unspecified hyperlipidemia Diabetic eye exam (HCC) Type II or unspecified type diabetes mellitus without mention of complication, not stated as uncontrolled Type II or unspecified type diabetes mellitus without mention of complication, uncontrolled- Primary Diabetic eye exam (HCC) Type II or unspecified type diabetes mellitus without mention of complication, not stated as uncontrolled Hyperlipidemia Other and unspecified hyperlipidemia Hypothyroid Unspecified hypothyroidism Rash Rash and other nonspecific skin eruption Acquired hypothyroidism- Primary Unspecified hypothyroidism Chronic midline low back pain, unspecified whether sciatica present Chronic SI joint pain Disorders of sacrum 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) Type II or unspecified type diabetes mellitus with ophthalmic manifestations, not stated as uncontrolled * Assessment & Plan Note - Denise Alvarado APRN.CNS - 12/08/2024 3:02 PM EST Associated Problem(s): Hypothyroid Orders: levothyroxine (SYNTHROID) 150 mcg tablet; Take 2 tablets by mouth once daily. TSH W/REFLEX FT4; Future * Assessment & Plan Note - Denise Alvarado APRN.CNS - 12/08/2024 3:02 PM EST Associated Problem(s): Chronic midline low back pain Orders: HYDROcodone-acetaminophen (NORCO) 5-325 mg per tablet; Take 1 tablet by mouth four times a day as needed for pain for up to 30 days. Short term increase to 4 times daily as needed due to fall/rotatorcuff injury Patient should start on December 10, 2024. * Assessment & Plan Note - Denise Alvarado APRN.CNS - 12/08/2024 3:02 PM EST Associated Problem(s): Type 2 diabetes mellitus with moderate nonproliferative diabetic retinopathywith macular edema (HCC) Orders: insulin degludec (TRESIBA FLEXTOUCH U-200) 200 unit/mL (3 mL) injection; Inject 80 Units subcutaneously daily at bedtime. documented in this encounter [facility] note* Diagnosis Establishing care with new doctor, encounter for- Primary Other reasons for seeking consultation Type II or unspecified type diabetes mellitus without mention of complication, uncontrolled Hyperlipidemia Other and unspecified hyperlipidemia Hypothyroid Unspecified hypothyroidism Kidney stone Calculus of kidney Noncompliance Personal history of noncompliance with medical treatment, presenting hazards to health Kidney stone on left side Calculus of kidney Type II or unspecified type diabetes mellitus without mention of complication, uncontrolled- Primary Hypothyroid Unspecified hypothyroidism Hyperlipidemia Other and unspecified hyperlipidemia Diabetic eye exam (HCC) Type II or unspecified type diabetes mellitus without mention of complication, not stated as uncontrolled Type II or unspecified type diabetes mellitus without mention of complication, uncontrolled- Primary Diabetic eye exam (HCC) Type II or unspecified type diabetes mellitus without mention of complication, not stated as uncontrolled Hyperlipidemia Other and unspecified hyperlipidemia Hypothyroid Unspecified hypothyroidism Rash Rash and other nonspecific skin eruption Acquired hypothyroidism- Primary Unspecified hypothyroidism Chronic midline low back pain, unspecified whether sciatica present Chronic SI joint pain Disorders of sacrum 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) Type II or unspecified type diabetes mellitus with ophthalmic manifestations, not stated as uncontrolled 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) Type II or unspecified type diabetes mellitus with ophthalmic manifestations, not stated as uncontrolled documented in this encounter [facility] note* Diagnosis Establishing care with new doctor, encounter for- Primary Other reasons for seeking consultation Type II or unspecified type diabetes mellitus without mention of complication, uncontrolled Hyperlipidemia Other and unspecified hyperlipidemia Hypothyroid Unspecified hypothyroidism Kidney stone Calculus of kidney Noncompliance Personal history of noncompliance with medical treatment, presenting hazards to health Kidney stone on left side Calculus of kidney Type II or unspecified type diabetes mellitus without mention of complication, uncontrolled- Primary Hypothyroid Unspecified hypothyroidism Hyperlipidemia Other and unspecified hyperlipidemia Diabetic eye exam (HCC) Type II or unspecified type diabetes mellitus without mention of complication, not stated as uncontrolled Type II or unspecified type diabetes mellitus without mention of complication, uncontrolled- Primary Diabetic eye exam (HCC) Type II or unspecified type diabetes mellitus without mention of complication, not stated as uncontrolled Hyperlipidemia Other and unspecified hyperlipidemia Hypothyroid Unspecified hypothyroidism Rash Rash and other nonspecific skin eruption Acquired hypothyroidism- Primary Unspecified hypothyroidism Chronic midline low back pain, unspecified whether sciatica present Chronic SI joint pain Disorders of sacrum 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) Type II or unspecified type diabetes mellitus with ophthalmic manifestations, not stated as uncontrolled Personal history of tobacco use, presenting hazards to health- Primary documented in this encounter [facility] note* Diagnosis Establishing care with new doctor, encounter for- Primary Other reasons for seeking consultation Type II or unspecified type diabetes mellitus without mention of complication, uncontrolled Hyperlipidemia Other and unspecified hyperlipidemia Hypothyroid Unspecified hypothyroidism Kidney stone Calculus of kidney Noncompliance Personal history of noncompliance with medical treatment, presenting hazards to health Kidney stone on left side Calculus of kidney Type II or unspecified type diabetes mellitus without mention of complication, uncontrolled- Primary Hypothyroid Unspecified hypothyroidism Hyperlipidemia Other and unspecified hyperlipidemia Diabetic eye exam (HCC) Type II or unspecified type diabetes mellitus without mention of complication, not stated as uncontrolled Type II or unspecified type diabetes mellitus without mention of complication, uncontrolled- Primary Diabetic eye exam (HCC) Type II or unspecified type diabetes mellitus without mention of complication, not stated as uncontrolled Hyperlipidemia Other and unspecified hyperlipidemia Hypothyroid Unspecified hypothyroidism Rash Rash and other nonspecific skin eruption Acquired hypothyroidism- Primary Unspecified hypothyroidism Chronic midline low back pain, unspecified whether sciatica present Chronic SI joint pain Disorders of sacrum 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) Type II or unspecified type diabetes mellitus with ophthalmic manifestations, not stated as uncontrolled 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) Type II or unspecified type diabetes mellitus with ophthalmic manifestations, not stated as uncontrolled documented in this encounter [facility] note* Diagnosis Establishing care with new doctor, encounter for- Primary Other reasons for seeking consultation Type II or unspecified type diabetes mellitus without mention of complication, uncontrolled Hyperlipidemia Other and unspecified hyperlipidemia Hypothyroid Unspecified hypothyroidism Kidney stone Calculus of kidney Noncompliance Personal history of noncompliance with medical treatment, presenting hazards to health Kidney stone on left side Calculus of kidney Type II or unspecified type diabetes mellitus without mention of complication, uncontrolled- Primary Hypothyroid Unspecified hypothyroidism Hyperlipidemia Other and unspecified hyperlipidemia Diabetic eye exam (HCC) Type II or unspecified type diabetes mellitus without mention of complication, not stated as uncontrolled Type II or unspecified type diabetes mellitus without mention of complication, uncontrolled- Primary Diabetic eye exam (HCC) Type II or unspecified type diabetes mellitus without mention of complication, not stated as uncontrolled Hyperlipidemia Other and unspecified hyperlipidemia Hypothyroid Unspecified hypothyroidism Rash Rash and other nonspecific skin eruption Acquired hypothyroidism- Primary Unspecified hypothyroidism Chronic midline low back pain, unspecified whether sciatica present Chronic SI joint pain Disorders of sacrum 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) Type II or unspecified type diabetes mellitus with ophthalmic manifestations, not stated as uncontrolled Post-COVID chronic dyspnea Former smoker Personal history of tobacco use, presenting hazards to health documented in this encounter [facility] note* Diagnosis Establishing care with new doctor, encounter for- Primary Other reasons for seeking consultation Type II or unspecified type diabetes mellitus without mention of complication, uncontrolled Hyperlipidemia Other and unspecified hyperlipidemia Hypothyroid Unspecified hypothyroidism Kidney stone Calculus of kidney Noncompliance Personal history of noncompliance with medical treatment, presenting hazards to health Kidney stone on left side Calculus of kidney Type II or unspecified type diabetes mellitus without mention of complication, uncontrolled- Primary Hypothyroid Unspecified hypothyroidism Hyperlipidemia Other and unspecified hyperlipidemia Diabetic eye exam (HCC) Type II or unspecified type diabetes mellitus without mention of complication, not stated as uncontrolled Type II or unspecified type diabetes mellitus without mention of complication, uncontrolled- Primary Diabetic eye exam (HCC) Type II or unspecified type diabetes mellitus without mention of complication, not stated as uncontrolled Hyperlipidemia Other and unspecified hyperlipidemia Hypothyroid Unspecified hypothyroidism Rash Rash and other nonspecific skin eruption Acquired hypothyroidism- Primary Unspecified hypothyroidism Chronic midline low back pain, unspecified whether sciatica present Chronic SI joint pain Disorders of sacrum 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) Type II or unspecified type diabetes mellitus with ophthalmic manifestations, not stated as uncontrolled Post-COVID chronic dyspnea Former smoker Personal history of tobacco use, presenting hazards to health documented in this encounter [facility] note* Diagnosis Establishing care with new doctor, encounter for- Primary Other reasons for seeking consultation Type II or unspecified type diabetes mellitus without mention of complication, uncontrolled Hyperlipidemia Other and unspecified hyperlipidemia Hypothyroid Unspecified hypothyroidism Kidney stone Calculus of kidney Noncompliance Personal history of noncompliance with medical treatment, presenting hazards to health Kidney stone on left side Calculus of kidney Type II or unspecified type diabetes mellitus without mention of complication, uncontrolled- Primary Hypothyroid Unspecified hypothyroidism Hyperlipidemia Other and unspecified hyperlipidemia Diabetic eye exam (HCC) Type II or unspecified type diabetes mellitus without mention of complication, not stated as uncontrolled Type II or unspecified type diabetes mellitus without mention of complication, uncontrolled- Primary Diabetic eye exam (HCC) Type II or unspecified type diabetes mellitus without mention of complication, not stated as uncontrolled Hyperlipidemia Other and unspecified hyperlipidemia Hypothyroid Unspecified hypothyroidism Rash Rash and other nonspecific skin eruption Acquired hypothyroidism- Primary Unspecified hypothyroidism Chronic midline low back pain, unspecified whether sciatica present Chronic SI joint pain Disorders of sacrum 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) Type II or unspecified type diabetes mellitus with ophthalmic manifestations, not stated as uncontrolled Chronic midline low back pain, unspecified whether sciatica present Chronic SI joint pain Disorders of sacrum documented in this encounter [facility] note* Diagnosis Establishing care with new doctor, encounter for- Primary Other reasons for seeking consultation Type II or unspecified type diabetes mellitus without mention of complication, uncontrolled Hyperlipidemia Other and unspecified hyperlipidemia Hypothyroid Unspecified hypothyroidism Kidney stone Calculus of kidney Noncompliance Personal history of noncompliance with medical treatment, presenting hazards to health Kidney stone on left side Calculus of kidney Type II or unspecified type diabetes mellitus without mention of complication, uncontrolled- Primary Hypothyroid Unspecified hypothyroidism Hyperlipidemia Other and unspecified hyperlipidemia Diabetic eye exam (HCC) Type II or unspecified type diabetes mellitus without mention of complication, not stated as uncontrolled Type II or unspecified type diabetes mellitus without mention of complication, uncontrolled- Primary Diabetic eye exam (HCC) Type II or unspecified type diabetes mellitus without mention of complication, not stated as uncontrolled Hyperlipidemia Other and unspecified hyperlipidemia Hypothyroid Unspecified hypothyroidism Rash Rash and other nonspecific skin eruption Acquired hypothyroidism- Primary Unspecified hypothyroidism Chronic midline low back pain, unspecified whether sciatica present Chronic SI joint pain Disorders of sacrum 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) Type II or unspecified type diabetes mellitus with ophthalmic manifestations, not stated as uncontrolled 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) Type II or unspecified type diabetes mellitus with ophthalmic manifestations, not stated as uncontrolled documented in this encounter [facility] note* Diagnosis Establishing care with new doctor, encounter for- Primary Other reasons for seeking consultation Type II or unspecified type diabetes mellitus without mention of complication, uncontrolled Hyperlipidemia Other and unspecified hyperlipidemia Hypothyroid Unspecified hypothyroidism Kidney stone Calculus of kidney Noncompliance Personal history of noncompliance with medical treatment, presenting hazards to health Kidney stone on left side Calculus of kidney Type II or unspecified type diabetes mellitus without mention of complication, uncontrolled- Primary Hypothyroid Unspecified hypothyroidism Hyperlipidemia Other and unspecified hyperlipidemia Diabetic eye exam (HCC) Type II or unspecified type diabetes mellitus without mention of complication, not stated as uncontrolled Type II or unspecified type diabetes mellitus without mention of complication, uncontrolled- Primary Diabetic eye exam (HCC) Type II or unspecified type diabetes mellitus without mention of complication, not stated as uncontrolled Hyperlipidemia Other and unspecified hyperlipidemia Hypothyroid Unspecified hypothyroidism Rash Rash and other nonspecific skin eruption Acquired hypothyroidism- Primary Unspecified hypothyroidism Chronic midline low back pain, unspecified whether sciatica present Chronic SI joint pain Disorders of sacrum 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) Type II or unspecified type diabetes mellitus with ophthalmic manifestations, not stated as uncontrolled Chronic midline low back pain, unspecified whether sciatica present Chronic SI joint pain Disorders of sacrum documented in this encounter [facility] note* Diagnosis Establishing care with new doctor, encounter for- Primary Other reasons for seeking consultation Type II or unspecified type diabetes mellitus without mention of complication, uncontrolled Hyperlipidemia Other and unspecified hyperlipidemia Hypothyroid Unspecified hypothyroidism Kidney stone Calculus of kidney Noncompliance Personal history of noncompliance with medical treatment, presenting hazards to [facility] Kidney stone on left side Calculus of kidney Type II or unspecified type diabetes mellitus without mention of complication, uncontrolled- Primary Hypothyroid Unspecified hypothyroidism Hyperlipidemia Other and unspecified hyperlipidemia Diabetic eye exam (HCC) Type II or unspecified type diabetes mellitus without mention of complication, not stated as uncontrolled Type II or unspecified type diabetes mellitus without mention of complication, uncontrolled- Primary Diabetic eye exam (HCC) Type II or unspecified type diabetes mellitus without mention of complication, not stated as uncontrolled Hyperlipidemia Other and unspecified hyperlipidemia Hypothyroid Unspecified hypothyroidism Rash Rash and other nonspecific skin eruption Acquired hypothyroidism- Primary Unspecified hypothyroidism Chronic midline low back pain, unspecified whether sciatica present Chronic SI joint pain Disorders of sacrum 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) Type II or unspecified type diabetes mellitus with ophthalmic manifestations, not stated as uncontrolled 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) Type II or unspecified type diabetes mellitus with ophthalmic manifestations, not stated as uncontrolled documented in this encounter [facility] note* Diagnosis Establishing care with new doctor, encounter for- Primary Other reasons for seeking consultation Type II or unspecified type diabetes mellitus without mention of complication, uncontrolled Hyperlipidemia Other and unspecified hyperlipidemia Hypothyroid Unspecified hypothyroidism Kidney stone Calculus of kidney Noncompliance Personal history of noncompliance with medical treatment, presenting hazards to health Kidney stone on left side Calculus of kidney Type II or unspecified type diabetes mellitus without mention of complication, uncontrolled- Primary Hypothyroid Unspecified hypothyroidism Hyperlipidemia Other and unspecified hyperlipidemia Diabetic eye exam (HCC) Type II or unspecified type diabetes mellitus without mention of complication, not stated as uncontrolled Type II or unspecified type diabetes mellitus without mention of complication, uncontrolled- Primary Diabetic eye exam (HCC) Type II or unspecified type diabetes mellitus without mention of complication, not stated as uncontrolled Hyperlipidemia Other and unspecified hyperlipidemia Hypothyroid Unspecified hypothyroidism Rash Rash and other nonspecific skin eruption Acquired hypothyroidism- Primary Unspecified hypothyroidism Chronic midline low back pain, unspecified whether sciatica present Chronic SI joint pain Disorders of sacrum 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) Type II or unspecified type diabetes mellitus with ophthalmic manifestations, not stated as uncontrolled Chronic midline low back pain, unspecified whether sciatica present Chronic SI joint pain Disorders of sacrum documented in this encounter [facility] note* Diagnosis Establishing care with new doctor, encounter for- Primary Other reasons for seeking consultation Type II or unspecified type diabetes mellitus without mention of complication, uncontrolled Hyperlipidemia Other and unspecified hyperlipidemia Hypothyroid Unspecified hypothyroidism Kidney stone Calculus of kidney Noncompliance Personal history of noncompliance with medical treatment, presenting hazards to health Kidney stone on left side Calculus of kidney Type II or unspecified type diabetes mellitus without mention of complication, uncontrolled- Primary Hypothyroid Unspecified hypothyroidism Hyperlipidemia Other and unspecified hyperlipidemia Diabetic eye exam (HCC) Type II or unspecified type diabetes mellitus without mention of complication, not stated as uncontrolled Type II or unspecified type diabetes mellitus without mention of complication, uncontrolled- Primary Diabetic eye exam (HCC) Type II or unspecified type diabetes mellitus without mention of complication, not stated as uncontrolled Hyperlipidemia Other and unspecified hyperlipidemia Hypothyroid Unspecified hypothyroidism Rash Rash and other nonspecific skin eruption Acquired hypothyroidism- Primary Unspecified hypothyroidism Chronic midline low back pain, unspecified whether sciatica present Chronic SI joint pain Disorders of sacrum 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) Type II or unspecified type diabetes mellitus with ophthalmic manifestations, not stated as uncontrolled Right-sided chest pain- Primary Chronic SI joint pain Disorders of sacrum Chronic midline low back pain, unspecified whether sciatica present 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) Type II or unspecified type diabetes mellitus with ophthalmic manifestations, not stated as uncontrolled Hypertensive chronic kidney disease, unspecified CKD stage Acquired hypothyroidism Unspecified hypothyroidism Hypokalemia Hypopotassemia Encounter for therapeutic drug monitoring Screening for depression Encounter for screening examination for other mental health and behavioral disorders Leg swelling Swelling of limb [facility] Diagnosis Establishing care with new doctor, encounter for- Primary Other reasons for seeking consultation Type II or unspecified type diabetes mellitus without mention of complication, uncontrolled Hyperlipidemia Other and unspecified hyperlipidemia Hypothyroid Unspecified hypothyroidism Kidney stone Calculus of kidney Noncompliance Personal history of noncompliance with medical treatment, presenting hazards to [facility] Kidney stone on left side Calculus of kidney Type II or unspecified type diabetes mellitus without mention of complication, uncontrolled- Primary Hypothyroid Unspecified hypothyroidism Hyperlipidemia Other and unspecified hyperlipidemia Diabetic eye exam (HCC) Type II or unspecified type diabetes mellitus without mention of complication, not stated as uncontrolled Type II or unspecified type diabetes mellitus without mention of complication, uncontrolled- Primary Diabetic eye exam (HCC) Type II or unspecified type diabetes mellitus without mention of complication, not stated as uncontrolled Hyperlipidemia Other and unspecified hyperlipidemia Hypothyroid Unspecified hypothyroidism Rash Rash and other nonspecific skin eruption Acquired hypothyroidism- Primary Unspecified hypothyroidism Chronic midline low back pain, unspecified whether sciatica present Chronic SI joint pain Disorders of sacrum 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) Type II or unspecified type diabetes mellitus with ophthalmic manifestations, not stated as uncontrolled Screening for colorectal cancer- Primary Special screening for malignant neoplasms, colon documented in this encounter [facility] note* Diagnosis Establishing care with new doctor, encounter for- Primary Other reasons for seeking consultation Type II or unspecified type diabetes mellitus without mention of complication, uncontrolled Hyperlipidemia Other and unspecified hyperlipidemia Hypothyroid Unspecified hypothyroidism Kidney stone Calculus of kidney Noncompliance Personal history of noncompliance with medical treatment, presenting hazards to health Kidney stone on left side Calculus of kidney Type II or unspecified type diabetes mellitus without mention of complication, uncontrolled- Primary Hypothyroid Unspecified hypothyroidism Hyperlipidemia Other and unspecified hyperlipidemia Diabetic eye exam (HCC) Type II or unspecified type diabetes mellitus without mention of complication, not stated as uncontrolled Type II or unspecified type diabetes mellitus without mention of complication, uncontrolled- Primary Diabetic eye exam (HCC) Type II or unspecified type diabetes mellitus without mention of complication, not stated as uncontrolled Hyperlipidemia Other and unspecified hyperlipidemia Hypothyroid Unspecified hypothyroidism Rash Rash and other nonspecific skin eruption Acquired hypothyroidism- Primary Unspecified hypothyroidism Chronic midline low back pain, unspecified whether sciatica present Chronic SI joint pain Disorders of sacrum 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) Type II or unspecified type diabetes mellitus with ophthalmic manifestations, not stated as uncontrolled Chronic midline low back pain, unspecified whether sciatica present Chronic SI joint pain Disorders of sacrum documented in this encounter [facility] note* Diagnosis Establishing care with new doctor, encounter for- Primary Other reasons for seeking consultation Type II or unspecified type diabetes mellitus without mention of complication, uncontrolled Hyperlipidemia Other and unspecified hyperlipidemia Hypothyroid Unspecified hypothyroidism Kidney stone Calculus of kidney Noncompliance Personal history of noncompliance with medical treatment, presenting hazards to health Kidney stone on left side Calculus of kidney Type II or unspecified type diabetes mellitus without mention of complication, uncontrolled- Primary Hypothyroid Unspecified hypothyroidism Hyperlipidemia Other and unspecified hyperlipidemia Diabetic eye exam (HCC) Type II or unspecified type diabetes mellitus without mention of complication, not stated as uncontrolled Type II or unspecified type diabetes mellitus without mention of complication, uncontrolled- Primary Diabetic eye exam (HCC) Type II or unspecified type diabetes mellitus without mention of complication, not stated as uncontrolled Hyperlipidemia Other and unspecified hyperlipidemia Hypothyroid Unspecified hypothyroidism Rash Rash and other nonspecific skin eruption Acquired hypothyroidism- Primary Unspecified hypothyroidism Chronic midline low back pain, unspecified whether sciatica present Chronic SI joint pain Disorders of sacrum 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) Type II or unspecified type diabetes mellitus with ophthalmic manifestations, not stated as uncontrolled Mixed hyperlipidemia documented in this encounter [facility] note* Diagnosis Establishing care with new doctor, encounter for- Primary Other reasons for seeking consultation Type II or unspecified type diabetes mellitus without mention of complication, uncontrolled Hyperlipidemia Other and unspecified hyperlipidemia Hypothyroid Unspecified hypothyroidism Kidney stone Calculus of kidney Noncompliance Personal history of noncompliance with medical treatment, presenting hazards to health Kidney stone on left side Calculus of kidney Type II or unspecified type diabetes mellitus without mention of complication, uncontrolled- Primary Hypothyroid Unspecified hypothyroidism Hyperlipidemia Other and unspecified hyperlipidemia Diabetic eye exam (HCC) Type II or unspecified type diabetes mellitus without mention of complication, not stated as uncontrolled Type II or unspecified type diabetes mellitus without mention of complication, uncontrolled- Primary Diabetic eye exam (HCC) Type II or unspecified type diabetes mellitus without mention of complication, not stated as uncontrolled Hyperlipidemia Other and unspecified hyperlipidemia Hypothyroid Unspecified hypothyroidism Rash Rash and other nonspecific skin eruption Acquired hypothyroidism- Primary Unspecified hypothyroidism Chronic midline low back pain, unspecified whether sciatica present Chronic SI joint pain Disorders of sacrum 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) Type II or unspecified type diabetes mellitus with ophthalmic manifestations, not stated as uncontrolled Acquired hypothyroidism Unspecified hypothyroidism documented in this encounter [facility] note* Diagnosis Establishing care with new doctor, encounter for- Primary Other reasons for seeking consultation Type II or unspecified type diabetes mellitus without mention of complication, uncontrolled Hyperlipidemia Other and unspecified hyperlipidemia Hypothyroid Unspecified hypothyroidism Kidney stone Calculus of kidney Noncompliance Personal history of noncompliance with medical treatment, presenting hazards to health Kidney stone on left side Calculus of kidney Type II or unspecified type diabetes mellitus without mention of complication, uncontrolled- Primary Hypothyroid Unspecified hypothyroidism Hyperlipidemia Other and unspecified hyperlipidemia Diabetic eye exam (HCC) Type II or unspecified type diabetes mellitus without mention of complication, not stated as uncontrolled Type II or unspecified type diabetes mellitus without mention of complication, uncontrolled- Primary Diabetic eye exam (HCC) Type II or unspecified type diabetes mellitus without mention of complication, not stated as uncontrolled Hyperlipidemia Other and unspecified hyperlipidemia Hypothyroid Unspecified hypothyroidism Rash Rash and other nonspecific skin eruption Acquired hypothyroidism- Primary Unspecified hypothyroidism Chronic midline low back pain, unspecified whether sciatica present Chronic SI joint pain Disorders of sacrum 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) Type II or unspecified type diabetes mellitus with ophthalmic manifestations, not stated as uncontrolled 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) Type II or unspecified type diabetes mellitus with ophthalmic manifestations, not stated as uncontrolled Chronic midline low back pain, unspecified whether sciatica present Chronic SI joint pain Disorders of sacrum Gastroesophageal reflux disease, unspecified whether esophagitis present documented in this encounter [facility] note* Diagnosis Establishing care with new doctor, encounter for- Primary Other reasons for seeking consultation Type II or unspecified type diabetes mellitus without mention of complication, uncontrolled Hyperlipidemia Other and unspecified hyperlipidemia Hypothyroid Unspecified hypothyroidism Kidney stone Calculus of kidney Noncompliance Personal history of noncompliance with medical treatment, presenting hazards to health Kidney stone on left side Calculus of kidney Type II or unspecified type diabetes mellitus without mention of complication, uncontrolled- Primary Hypothyroid Unspecified hypothyroidism Hyperlipidemia Other and unspecified hyperlipidemia Diabetic eye exam (HCC) Type II or unspecified type diabetes mellitus without mention of complication, not stated as uncontrolled Type II or unspecified type diabetes mellitus without mention of complication, uncontrolled- Primary Diabetic eye exam (HCC) Type II or unspecified type diabetes mellitus without mention of complication, not stated as uncontrolled Hyperlipidemia Other and unspecified hyperlipidemia Hypothyroid Unspecified hypothyroidism Rash Rash and other nonspecific skin eruption Acquired hypothyroidism- Primary Unspecified hypothyroidism Chronic midline low back pain, unspecified whether sciatica present Chronic SI joint pain Disorders of sacrum 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) Type II or unspecified type diabetes mellitus with ophthalmic manifestations, not stated as uncontrolled Poorly controlled type 2 diabetes mellitus (HCC) Type II or unspecified type diabetes mellitus without mention of complication, not stated as uncontrolled documented in this encounter [facility] note* Diagnosis Establishing care with new doctor, encounter for- Primary Other reasons for seeking consultation Type II or unspecified type diabetes mellitus without mention of complication, uncontrolled Hyperlipidemia Other and unspecified hyperlipidemia Hypothyroid Unspecified hypothyroidism Kidney stone Calculus of kidney Noncompliance Personal history of noncompliance with medical treatment, presenting hazards to [facility] Kidney stone on left side Calculus of kidney Type II or unspecified type diabetes mellitus without mention of complication, uncontrolled- Primary Hypothyroid Unspecified hypothyroidism Hyperlipidemia Other and unspecified hyperlipidemia Diabetic eye exam (HCC) Type II or unspecified type diabetes mellitus without mention of complication, not stated as uncontrolled Type II or unspecified type diabetes mellitus without mention of complication, uncontrolled- Primary Diabetic eye exam (HCC) Type II or unspecified type diabetes mellitus without mention of complication, not stated as uncontrolled Hyperlipidemia Other and unspecified hyperlipidemia Hypothyroid Unspecified hypothyroidism Rash Rash and other nonspecific skin eruption Acquired hypothyroidism- Primary Unspecified hypothyroidism Chronic midline low back pain, unspecified whether sciatica present Chronic SI joint pain Disorders of sacrum 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) Type II or unspecified type diabetes mellitus with ophthalmic manifestations, not stated as uncontrolled 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) Type II or unspecified type diabetes mellitus with ophthalmic manifestations, not stated as uncontrolled documented in this encounter [facility] note* Diagnosis Establishing care with new doctor, encounter for- Primary Other reasons for seeking consultation Type II or unspecified type diabetes mellitus without mention of complication, uncontrolled Hyperlipidemia Other and unspecified hyperlipidemia Hypothyroid Unspecified hypothyroidism Kidney stone Calculus of kidney Noncompliance Personal history of noncompliance with medical treatment, presenting hazards to health Kidney stone on left side Calculus of kidney Type II or unspecified type diabetes mellitus without mention of complication, uncontrolled- Primary Hypothyroid Unspecified hypothyroidism Hyperlipidemia Other and unspecified hyperlipidemia Diabetic eye exam (HCC) Type II or unspecified type diabetes mellitus without mention of complication, not stated as uncontrolled Type II or unspecified type diabetes mellitus without mention of complication, uncontrolled- Primary Diabetic eye exam (HCC) Type II or unspecified type diabetes mellitus without mention of complication, not stated as uncontrolled Hyperlipidemia Other and unspecified hyperlipidemia Hypothyroid Unspecified hypothyroidism Rash Rash and other nonspecific skin eruption Acquired hypothyroidism- Primary Unspecified hypothyroidism Chronic midline low back pain, unspecified whether sciatica present Chronic SI joint pain Disorders of sacrum 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) Type II or unspecified type diabetes mellitus with ophthalmic manifestations, not stated as uncontrolled Chronic midline low back pain, unspecified whether sciatica present Chronic SI joint pain Disorders of sacrum documented in this encounter [facility] note* Diagnosis Establishing care with new doctor, encounter for- Primary Other reasons for seeking consultation Type II or unspecified type diabetes mellitus without mention of complication, uncontrolled Hyperlipidemia Other and unspecified hyperlipidemia Hypothyroid Unspecified hypothyroidism Kidney stone Calculus of kidney Noncompliance Personal history of noncompliance with medical treatment, presenting hazards to health Kidney stone on left side Calculus of kidney Type II or unspecified type diabetes mellitus without mention of complication, uncontrolled- Primary Hypothyroid Unspecified hypothyroidism Hyperlipidemia Other and unspecified hyperlipidemia Diabetic eye exam (HCC) Type II or unspecified type diabetes mellitus without mention of complication, not stated as uncontrolled Type II or unspecified type diabetes mellitus without mention of complication, uncontrolled- Primary Diabetic eye exam (HCC) Type II or unspecified type diabetes mellitus without mention of complication, not stated as uncontrolled Hyperlipidemia Other and unspecified hyperlipidemia Hypothyroid Unspecified hypothyroidism Rash Rash and other nonspecific skin eruption Acquired hypothyroidism- Primary Unspecified hypothyroidism Chronic midline low back pain, unspecified whether sciatica present Chronic SI joint pain Disorders of sacrum 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) Type II or unspecified type diabetes mellitus with ophthalmic manifestations, not stated as uncontrolled Mixed hyperlipidemia 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) Type II or unspecified type diabetes mellitus with ophthalmic manifestations, not stated as uncontrolled [facility] Diagnosis Establishing care with new doctor, encounter for- Primary Other reasons for seeking consultation Type II or unspecified type diabetes mellitus without mention of complication, uncontrolled Hyperlipidemia Other and unspecified hyperlipidemia Hypothyroid Unspecified hypothyroidism Kidney stone Calculus of kidney Noncompliance Personal history of noncompliance with medical treatment, presenting hazards to [facility] Kidney stone on left side Calculus of kidney Type II or unspecified type diabetes mellitus without mention of complication, uncontrolled- Primary Hypothyroid Unspecified hypothyroidism Hyperlipidemia Other and unspecified hyperlipidemia Diabetic eye exam (HCC) Type II or unspecified type diabetes mellitus without mention of complication, not stated as uncontrolled Type II or unspecified type diabetes mellitus without mention of complication, uncontrolled- Primary Diabetic eye exam (HCC) Type II or unspecified type diabetes mellitus without mention of complication, not stated as uncontrolled Hyperlipidemia Other and unspecified hyperlipidemia Hypothyroid Unspecified hypothyroidism Rash Rash and other nonspecific skin eruption Acquired hypothyroidism- Primary Unspecified hypothyroidism Chronic midline low back pain, unspecified whether sciatica present Chronic SI joint pain Disorders of sacrum 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) Type II or unspecified type diabetes mellitus with ophthalmic manifestations, not stated as uncontrolled Weight gain- Primary Abnormal weight gain Edema, unspecified type Acquired hypothyroidism Unspecified hypothyroidism Encounter for immunization Need for other specified prophylactic vaccination against single bacterial disease Screening for diabetic retinopathy Screening for other eye conditions Screening for cervical cancer Screening for malignant neoplasm of the cervix Screening for colon cancer Special screening for malignant neoplasms, colon Malignant neoplasm of thymus (HCC) Malignant neoplasm of thymus Myasthenia gravis (HCC) Myasthenia gravis without exacerbation Platelet disorder (HCC) Qualitative platelet defects Hypokalemia Hypopotassemia documented in this encounter [facility] note* Diagnosis Establishing care with new doctor, encounter for- Primary Other reasons for seeking consultation Type II or unspecified type diabetes mellitus without mention of complication, uncontrolled Hyperlipidemia Other and unspecified hyperlipidemia Hypothyroid Unspecified hypothyroidism Kidney stone Calculus of kidney Noncompliance Personal history of noncompliance with medical treatment, presenting hazards to health Kidney stone on left side Calculus of kidney Type II or unspecified type diabetes mellitus without mention of complication, uncontrolled- Primary Hypothyroid Unspecified hypothyroidism Hyperlipidemia Other and unspecified hyperlipidemia Diabetic eye exam (HCC) Type II or unspecified type diabetes mellitus without mention of complication, not stated as uncontrolled Type II or unspecified type diabetes mellitus without mention of complication, uncontrolled- Primary Diabetic eye exam (HCC) Type II or unspecified type diabetes mellitus without mention of complication, not stated as uncontrolled Hyperlipidemia Other and unspecified hyperlipidemia Hypothyroid Unspecified hypothyroidism Rash Rash and other nonspecific skin eruption Acquired hypothyroidism- Primary Unspecified hypothyroidism Chronic midline low back pain, unspecified whether sciatica present Chronic SI joint pain Disorders of sacrum 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) Type II or unspecified type diabetes mellitus with ophthalmic manifestations, not stated as uncontrolled Edema, unspecified type- Primary Acquired hypothyroidism Unspecified hypothyroidism 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) Type II or unspecified type diabetes mellitus with ophthalmic manifestations, not stated as uncontrolled Encounter for immunization Need for other specified prophylactic vaccination against single bacterial disease Screening for diabetic retinopathy Screening for other eye conditions Screening for cervical cancer Screening for malignant neoplasm of the cervix Screening for colon cancer Special screening for malignant neoplasms, colon Weight gain Abnormal weight gain documented in this encounter [facility] note* Diagnosis Establishing care with new doctor, encounter for- Primary Other reasons for seeking consultation Type II or unspecified type diabetes mellitus without mention of complication, uncontrolled Hyperlipidemia Other and unspecified hyperlipidemia Hypothyroid Unspecified hypothyroidism Kidney stone Calculus of kidney Noncompliance Personal history of noncompliance with medical treatment, presenting hazards to health Kidney stone on left side Calculus of kidney Type II or unspecified type diabetes mellitus without mention of complication, uncontrolled- Primary Hypothyroid Unspecified hypothyroidism Hyperlipidemia Other and unspecified hyperlipidemia Diabetic eye exam (HCC) Type II or unspecified type diabetes mellitus without mention of complication, not stated as uncontrolled Type II or unspecified type diabetes mellitus without mention of complication, uncontrolled- Primary Diabetic eye exam (HCC) Type II or unspecified type diabetes mellitus without mention of complication, not stated as uncontrolled Hyperlipidemia Other and unspecified hyperlipidemia Hypothyroid Unspecified hypothyroidism Rash Rash and other nonspecific skin eruption Acquired hypothyroidism- Primary Unspecified hypothyroidism Chronic midline low back pain, unspecified whether sciatica present Chronic SI joint pain Disorders of sacrum 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) Type II or unspecified type diabetes mellitus with ophthalmic manifestations, not stated as uncontrolled Chronic midline low back pain, unspecified whether sciatica present Chronic SI joint pain Disorders of sacrum [facility] Diagnosis Onset Date Resolution Status Admit Date Dyspnea on exertion acute Octob er 2024 6:29pm Swelling of both lower extremities acute July 09 6:29pm Acute on chronic hypoxic respiratory failure chronic July 09, 2025 6:29pm CHF exacerbation chronic July 09, 2025 6:29pm [facility] Work Phone: History and physical note Author Tavo Nielson [facility] Note Date/Time July 09, 2025 6: 40pm [facility] Medical Records Department [address] [place] [address] H&P Exam - Hospitalist 07/09/25 1834 MR#: [id number] Acct: [id number] Name: SAMANTHA ROMERO Rep #:[id number] : 1965 59 From: Tavo Nielson DO PCP: Dr. Sarina Adams MD Status:AD M IN Location: [facility] [id number] HPI - General General Date of Service: 07/09/25 Chief Complaint: Shortness of breath HPI Narrative SAMANTHA ROMERO, is a 59 F who presents with shortness of breath. This is a 59-year-old female who is on oxygen since having COVID 4-1/2 years ago. 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 Shehas put on roughly 15 pounds in the past few days and has had increased lower extremity edema extending up into her abdomen. She was sent to the emergency room where she had chest x-ray showed some pulmonary vascular congestion. She received 40 mg of IV furosemide. They attempted to ambulate her but she became hypoxic with her oxygen that she does require at home. [ ] [facility] Medical History COVID History of hypothyroidism Type 2 diabetes mellitus treated with insulin Chronic respiratory failure with hypoxia Pericardial effusion Thrombocytopenia Anemia Elevated lipase Urinary retention Obesity Former tobacco use UTI (urinary tract infection) Kidney stones Migraines Hypothyroid Hypercholesteremia Hypertension Type 2 diabetes mellitus Home Medications ?Medication ?Instructions ?Recorded ?Last Taken ?Type estradiol 0.01% (0.1 mg/gram) 3 g vaginal .COMPLEX hea lth 03/25/21 Unknown History vaginal cream maintenance fenofibrate 160 mg tablet 160 mg PO DAILY cholesterol 03/25/21 07/09/25 History vitamin E 268 mg (400 unit) capsule 400 unit PO DAILY supplement 03/25/21 07/09/25 History dicyclomine 10 mg capsule 10 mg PO ACHS abdominal pain 07/06/21 Unknown History insulin degludec 100 unit/mL (3 86 unit subcut QHS jessiac betes 07/06/21 07/08/25 History mL) subcutaneous pen (Tresiba FlexTouch U-100 insulin) meloxicam 15 mg tablet 15 mg PO DAILY PRN Pain 12/2207/09/25 History rosuvastatin 10 mg tablet 10 mg PO DAILY cholesterol 1 07/08/25 History cholecalciferol (vitamin D3) 125 125 mcg PO DAILY SUPP LEMENT 05/03/24 07/09/25 History mcg (5,000 unit) capsule omeprazole 40 mg capsule,delayed 40 mg PO DAILY STOMAC H 05/03/24 07/09/25 History release dulaglutide 4.5 mg/0.5 mL 4.5 mg subcut QWEEK BLOOD JOHNSON GAR 10/27/24 07/08/25 History subcutaneous pen injector (Trulicity) empagliflozin 25 mg tablet 25 mg PO DAILY 07/09/25 Unk nown History (Jardiance) Held on 07/09/25. Instructions: Ordered furosemide 40 mg tablet 40 mg PO BID EDEMA 07/09/25 07/08/25 History gabapentin 800 mg tablet 800 mg PO TID NEUROPATHY 03/2807/09/25 History hydrocodone-acetaminophen 5-325mg 1 tab PO Q6H PRN tsering n 07/09/25 07/04/25 History 5mg-325mg insulin lispro 100 unit/mL 22 unit subcut TIDCM DIABET ES 07/09/25 Unknown History subcutaneous pen (Humalog KwikPen (U-100) Insulin) insulin lispro 100 unit/mL See Protocol subcut DAILY D IABETES 07/09/25 Unknown History subcutaneous pen (Humalog KwikPen (U-100) Insulin) levothyroxine 300 mcg tablet 300 mcg PO DAILY THYROID 07/09/25 07/08/25 History peg 400-propylene glycol 0.4 %-0.3 1 drp ophthalmic (e ye) 4X/DAY DRY 07/09/25 07/07/25 History % eye drops (Systane Ultra) EYE potassium chloride 10 mEq 10 meq PO DAILY POTASSIUM 07/09/25 History tablet,extended release Allergy/AdvReac Type Severity Reaction Status Date / Time metformin AdvReac Diarrhea Verified 07/09/25 16:21 oxycodone (From Percocet) AdvReac upset Verified 07/09/25 16:21 stomach/off balance Family History Mother Diabetes Father Diabetes Surgical History Previous section History of appendectomy Social History household members: none Smoking Status: Former smoker how long ago did patient quit smoking: Quit cigarette tobacco in 2014, 1 ppd since teenager until quit. alcohol intake: never substance use type: does not use ROS ROS Narrative Midsternal chest pain with deep respirations. Coughing up some reynolds phlegm. All review of systems were negative except as mentioned above in the history of present illness and the other review of systems. Vital Signs Vital Signs Vital Signs: 07/09/25 16:21 07/09/25 16:41 07/09/25 16:42 Temperature 35.6 C L Temperature Source Temporal Pulse Rate 71 Respiratory Rate 18 Respiratory Effort Short of Breath Respiratory Depth Normal Respiratory Pattern Normal Blood Pressure 146/77 H Blood Pressure Mean 100 Pulse Ox 93 Oxygen Delivery Method Nasal Cannula Nasal Cannula Nasal Cannula Oxygen Flow Rate (L/min) 2 2 2 07/09/25 16:43 07/09/25 16:47 07/09/25 16:50 Temperature Temperature Source Pulse Rate 73 Respiratory Rate 17 Respiratory Effort Short of Breath Respiratory Depth Respiratory Pattern Blood Pressure 132/110 H Blood Pressure Mean 117 Pulse Ox 100 Oxygen Delivery Method Oxygen Flow Rate (L/min) 07/09/25 17:00 07/09/25 17:15 07/09/25 17:30 Temperature Temperature Source Pulse Rate Respiratory Rate Respiratory Effort Respiratory Depth Respiratory Pattern Blood Pressure 157/87 H Blood Pressure Mean 107 Pulse Ox 97 97 98 Oxygen Delivery Method Oxygen Flow Rate (L/min) 07/09/25 17:45 07/09/25 18:05 07/09/25 18:06 Temperature Temperature Source Pulse Rate 76 Respiratory Rate 19 H Respiratory Effort Respiratory Depth Respiratory Pattern Blood Pressure 141/70 H Blood Pressure Mean 91 Pulse Ox 96 92 Oxygen Delivery Method Oxygen Flow Rate (L/min) 07/09/25 18:15 07/09/25 18:23 Temperature 37.2 C Temperature Source Pulse Rate 71 71 Respiratory Rate 15 19 H Respiratory Effort Respiratory Depth Respiratory Pattern Blood Pressure 181/73 H 181/73 H Blood Pressure Mean 101 109 Pulse Ox 98 99 Oxygen Delivery Method Nasal Cannula Oxygen Flow Rate (L/min) 2 Weight Weight: 121.608 kg Body Mass Index (BMI) 47.5 Physical Exam Const alert and no apparent distress Constitutional Narrative: On oxygen. No respiratory distress. No conversational dyspnea. HEENT normocephalic and head/scalp atraumatic Resp normal respiratory effort, no retractions, no use of accessory muscles and clearto auscultation bilaterally Cardio regular rate, regular rhythm, S1 normal heart sound and S2 normal heart sound GI normal to inspection, nondistended, normoactive bowel sounds, soft to palpation,non-tender and non-distended Extremity Extremity Narrative: Tight bilateral lower extremity edema. Neuro moves all extremities Sensorium / Orientation: awake and alert Speech: speech normal Psych Psych Narrative: Flat affect Results Lab / Micro Data Attestation: I reviewed the patient's lab results. 07/09/25 16:35 07/09/25 16:35 Labs: Laboratory Results - last 24 hr 07/09/25 16:35: WBC 5.4, RBC 3.95 L, Hgb 11.0 L, Hct 35.9 L, MCV 90.9, MCH 27.8,MCHC 30.6 L, RDW Std Deviation 50.4 H, RDW Coeff of Catina 15.1 H, Plt Count 131 L,MPV 11.2, Immature Gran % (Auto) 0.700, Neut % (Auto) 71.8 H, Lymph % (Auto) 15.5 L, [place] % (Auto) 7.2, Eos % (Auto) 4.4, Baso % (Auto) 0.4, Absolute Neuts (auto) 3.9, Absolute Lymphs (auto) 0.84, Nucleated RBC % 0, Sodium 143, Potassium 4.6, Chloride 107, Carbon Dioxide 26.4, Anion Gap 10, BUN 31 H, Creatinine 1.15, Estim Creat Clear Calc 66.59, Est GFR (MDRD) Non-Af 55 L, BUN/Creatinine Ratio 26.6 H, Glucose 225 H, Calcium 9.0, NT pro BNP II 237 EKG Initial EKG: Attestation: I personally reviewed and interpreted this EKG as follows: Prior EKG tracings: available for review EKG Rhythm Intrepretation: Sinus Rhythm Imaging Radiology Impression Chest X-Ray 07/09/25 16:53 IMPRESSION: Cardiomegaly with vascular congestion and interstitial edema. No sizable pleural effusion. Reading Location: [id number] Assessment & Plan Assessment/Plan (1) CHF exacerbation: PLAN: Unclear type. Weight is gone up 15 pounds in the past few days and she does have clinical evidence of volume overload and chest x-ray shows pulmonary vascular congestion. Patient received 40 mg of IV furosemide in emergency room and will continue with 40 mg IV twice daily. Additionally, patient be fluid restricted. Patient states that she drinks several bottles of fluid as well as other sugar-free beverages throughout the day. I think the patient would benefit from fluid restricted diet and further instructions about checking her weight daily. Will repeat echocardiogram as last 1 was performed in our EMR in 2021. PLAN: Plan Diabetes mellitus type 2: Insulin-dependent. Continue with basal, prandial and will add sliding scale insulin. Check an A1c. Obesity class III: Complicates care and recovery. Weight loss advised. Nutrition to provide further instructions. Diabetic neuropathy: Continue with glargine, patient has prescription for hydrocodone/acetaminophen we will continue with that. VTE prophylaxis with enoxaparin CODE STATUS: Addressed with the patient. Patient wishes to be full code. Charges/Coding Visit Charges Inpatient E&M: 35297 Init Hosp L2 07/09/25 1840 <Electronically signed by Tavo Nielson DO> Cosigner Signature (if applicable): CC: Dr. Tavo Nielson DO; Dr. Sarina Adams MD~ Signed [facility] Work Phone: Hospital Discharge instructionsAdditional Instructions DISCHARGE INSTRUCTIONS PLEASE READ *Please take this with you to your next doctors appointment* -Would recommend lab work (BMP) to check your kidney function in 2 to 3 days through your primary care physician's office. Please call their office upon discharge to obtain order for lab work. -Resume your Lasix 40 mg once in the morning and once in the afternoon, it is very important that you take these medications on time -Weigh yourself every day. A sudden weight gain can mean you are retaining fluid. Weigh yourself at the same time of day and in the same kind of clothes. Ideally, weigh yourself first thing in the morning after you empty your bladder, but before you eat breakfast. -Please call your physician if your weight goes up by more than 2 pounds in 1 day or 5 pounds in 1 week. This can be a sign that you are retaining more fluid than you should be. Clues to weight gain include checking your ankles for swelling, or noticing you are short of breath when you lie down -Please limit your sodium intake to less than 3 g/day. And your fluid intake to less than 1800 mL a day Here are tips: Limit canned, dried, packaged, and fast foods. Don't add salt to your food at the table. Season foods with herbs instead of salt when you cook. When you eat out, ask that the chef de cuisine not add any salt to your dish. Don't eat fried or greasy foods. Be careful of bottled beverages. They can contain a lot of salt -Call 911 right away if you have: -Severe shortness of breath, such that you can't catch your breath even while resting -Severe chest pain that does not resolve with rest or nitroglycerin -[place], foamy mucus with cough and shortness of breath -An ongoing rapid or irregular heartbeat -Passing out or fainting -Stroke symptoms such as sudden numbness or weakness on one side of your face, arm, or leg or sudden confusion, trouble speaking or vision changes -Take levothyroxine on an empty stomach with 1 cup of water (250ml) at least four hours after eating. Then wait minutes before consuming any other food or beverage, especially coffee. This medicine will work best if you take it about at the same time every day. Separate levothyroxine from vitamins and antacids or medicines with calcium or iron by at least 4 hours before and after taking this medicine. Stop taking any biotin supplement 4 days prior to having labs drawn. It is important you keep taking each dose of this medicine on time even if you are feeling well. If you forget to take a dose on time, take in as soon as you remember unless it is almost time for the next dose and return to your normal schedule. Do not take two doses at one time - Would advise you discontinue meloxicam as this can be hard on the kidneys - Jardiance was taken off your medication list as it was indicated they are not taking this -Please call your primary care provider's office upon discharge to schedule a hospital follow up within 1 week. -For any concerning signs or symptoms please call 911 or proceed to the nearest emergency department Date of Discharge: 07/12/25[facility] Work Phone: Reason for referral (narrative)* Diagnostic Procedure Only (Routine) - Pending Review Specialty Diagnoses / Procedures Referred By Zoila wright Referred To Contact [facility] Diagnoses Encounter for screening mammogram for breast cancer Procedures DIANNA SCREENING SCREENING MAMMOGRAPHY BI 2-VIEW BREAST INC CAD Sarina Adams MD [address] [place] [address] [facility] [address] [place] [address] Referral ID Status Reason Start Date Expiration Date Visits Requested Visits Authorized [id number] Pending Review Auto-Generat ed Referral 12/24/2021 01/23/2023 1 1 [facility] for referral (narrative)* Outpatient Procedure (Routine) - Pending Review Specialty Diagnoses / Procedures Referred By Contac t Referred To Contact [facility] Diagnoses Post-COVID chronic dyspnea Chronic hypoxemic respiratory failure (HCC) Procedures OXIMETRY WITH AMBULATION NONINVASIVE EAR/PULSE OXIMETRY Brooke Schroeder PA-C [address] [place] [address] [facility] [place] [address] [place] [address] Referral ID Status Reason Start Date Expiration Date Visits Requested Visits Authorized [id number] Pending Review Auto-Generat ed Referral 10/26/2022 11/25/2023 1 1 [facility] for referral (narrative)* Diagnostic Procedure Only (Routine) - Pending Review Specialty Diagnoses / Procedures Referred By Contac t Referred To Contact [facility] Diagnoses Encounter for screening mammogram for breast cancer Procedures DIANNA SCREENING SCREENING MAMMOGRAPHY BI 2-VIEW BREAST INC CAD Sarina Adams MD [address] [place], [place] [id number] [facility] [address] [place] [phone] Referral ID Status Reason Start Date Expiration Date Visits Requested Visits Authorized [id number] Pending Review Auto-Generat ed Referral 12/02/2022 01/01/2024 1 1 [facility] for referral (narrative)* Outpatient Procedure (Routine) - Authorized Specialty Diagnoses / Procedures Referred By Contac t Referred To Contact [facility] Diagnoses Generalized edema Procedures ECHO ECHO TTHRC R-T 2D W/WOM-MODE COMPL SPEC&COLR Cole Cardenas APRN.ADVISORY SOFTWARE ENGINEER [address] [place] [address] [facility] [place] [address] [place] [address] Referral ID Status Reason Start Date Expiration Date Visits Requested Visits Authorized [id number] Authorized Auto-Generat ed Referral 12/29/2022 02/16/2023 1 1 [facility] for referral (narrative)* Outpatient Procedure (Routine) - Additional Clinical Info Needed Specialty Diagnoses / Procedures Referred By Contac t Referred To Contact [facility] [place] Diagnoses Pericardial effusion Procedures ECHO ECHO TTHRC R-T 2D W/WOM-MODE COMPL SPEC&COLR D Ramesh Brewster MD [address] [place] [address] [address] Referral ID Status Reason Start Date Expiration Date Visits Requested Visits Authorized [id number] Additional Clinical Info Needed Auto-Generat ed Referral 01/25/2023 01/25/2024 1 1 * Outpatient Procedure (Routine) - Authorized Specialty Diagnoses / Procedures Referred By Contac t Referred To Contact [facility] [place] Diagnoses Screening for ischemic heart disease Procedures ECG COMPLETE ECG ROUTINE ECG W/LEAST 12 LDS W/I&R Ramesh Brewster MD [address] [place] [address] [address] Referral ID Status Reason Start Date Expiration Date Visits Requested Visits Authorized [id number] Authorized Auto-Generat ed Referral 01/19/2023 01/19/2024 1 1 [facility] for referral (narrative)* Diagnostic Procedure Only (Routine) - Closed Specialty Diagnoses / Procedures Referred By Contac t Referred To Contact [facility] Diagnoses Fall, initial encounter Right arm pain Right hand pain Procedures XR FOREARM GENERAL 2V AP/LAT RIGHT RADEX FOREARM 2 VIEWS Denise Alvarado, ODILON.QUALITY ASSURANCE PRACTICE MANAGER [address] [place] [address] [place] [address] Referral ID Status Reason Start Date Expiration Date V isits Requested Visits Authorized [id number] Closed Auto-Generate d Referral 05/24/2023 06/22/2024 1 1 * Diagnostic Procedure Only (Routine) - Closed Specialty Diagnoses / Procedures Referred By Contac t Referred To Contact [facility] Diagnoses Fall, initial encounter Right arm pain Right hand pain Procedures XR HAND GENERAL 3V PA/LAT/OBL RIGHT RADEX HAND MINIMUM 3 VIEWS Denise Alvarado APRN.CNS [address] [place] [address] [place] [address] Referral ID Status Reason Start Date Expiration Date V isits Requested Visits Authorized [id number] Closed Auto-Generate d Referral 05/24/2023 06/22/2024 1 1 [facility] for referral (narrative)* Diagnostic Procedure Only (Routine) - Closed Specialty Diagnoses / Procedures Referred By Contac t Referred To Contact [facility] Diagnoses Lumbar spondylosis Procedures XR LUMBAR MOTION 4V AP/LAT/ FLEX/EXT RADEX SPINE LUMBOSACRAL MINIMUM 4 VIEWS Jaida Soares MD [address] [place] [address] [place] [address] Referral ID Status Reason Start Date Expiration Date V isits Requested Visits Authorized [id number] Closed Auto-Generate d Referral 07/01/2023 07/30/2024 1 1 [facility] for referral (narrative)* Diagnostic Procedure Only (Routine) - Closed Specialty Diagnoses / Procedures Referred By Contac t Referred To Contact [facility] Diagnoses Lumbar spondylosis Procedures XR LUMBAR MOTION 4V AP/LAT/ FLEX/EXT RADEX SPINE LUMBOSACRAL MINIMUM 4 VIEWS Jaida Soares MD [address] [place] [address] [place] [address] Referral ID Status Reason Start Date Expiration Date V isits Requested Visits Authorized [id number] Closed Auto-Generate d Referral 07/01/2023 07/30/2024 1 1 [facility] for referral (narrative)* Diagnostic Procedure Only (Routine) - Pending Review Specialty Diagnoses / Procedures Referred By Contac t Referred To Contact [facility] Diagnoses Encounter for screening mammogram for breast cancer Procedures DIANNA SCREENING SCREENING MAMMOGRAPHY BI 2-VIEW BREAST INC CAD Sarina Adams MD [address] [place] [address] [facility] [address] [place] [address] Referral ID Status Reason Start Date Expiration Date Visits Requested Visits Authorized [id number] Pending Review Auto-Generat ed Referral 11/10/2023 12/09/2024 1 1 [facility] for referral (narrative)* Outpatient Procedure (Routine) - Authorized Specialty Diagnoses / Procedures Referred By Contac t Referred To Contact [facility] Diagnoses Post-COVID chronic dyspnea Procedures LUNG DIFFUSION CAPACITY (DLCO) DIFFUSING CAPACITY Brooke Be PA-C [address] [place] [address] [facility] [place] [address] [place] [address] Referral ID Status Reason Start Date Expiration Date Visits Requested Visits Authorized [id number] Authorized Auto-Generat ed Referral 12/01/2023 12/30/2024 1 1 * Outpatient Procedure (Routine) - Authorized Specialty Diagnoses / Procedures Referred By Contcornelia t Referred To Contact [facility] Diagnoses Post-COVID chronic dyspnea Procedures OXIMETRY WITH AMBULATION NONINVASIVE EAR/PULSE OXIMETRY MULTIPLE DETER Brooke Be PA-C [address] [place] [address] [facility] [place] [address] [place] [address] Referral ID Status Reason Start Date Expiration Date Visits Requested Visits Authorized [id number] Authorized Auto-Generat ed Referral 12/01/2023 12/30/2024 1 1 * Outpatient Procedure (Routine) - Authorized Specialty Diagnoses / Procedures Referred By Contac t Referred To Contact [facility] Diagnoses Post-COVID chronic dyspnea Procedures SPIROMETRY WITH DILATOR IF OBSTRUCTED BRNCDILAT RSPSE SPMTRY PRE&POST-BRNCDILAT ADMN Brooke Be PA-C [address] [place] [address] [facility] [place] [address] [place] [address] Referral ID Status Reason Start Date Expiration Date Visits Requested Visits Authorized [id number] Authorized Auto-Generat ed Referral 12/01/2023 12/30/2024 1 1 [facility] for referral (narrative)* Outpatient Procedure (Routine) - Pending Review Specialty Diagnoses / Procedures Referred By Contac t Referred To Contact [facility] Diagnoses Pericardial effusion Procedures ECHO ECHO TTHRC R-T 2D W/WOM-MODE COMPL SPEC&COLR D Ramesh Brewster MD [address] [place] [address] [facility] [address] [address] Referral ID Status Reason Start Date Expiration Date Visits Requested Visits Authorized [id number] Pending Review Auto-Generat ed Referral 06/05/2024 02/20/2025 1 1 [facility] for referral (narrative)* Diagnostic Procedure Only (Routine) - Closed Specialty Diagnoses / Procedures Referred By Contac t Referred To Contact [facility] Diagnoses Injury of left rotator cuff, subsequent encounter Procedures XR SHOULDER LIMITED 2V AP/TRUE AP LEFT RADEX SHOULDER COMPLETE MINIMUM 2 VIEWS Cole Bower APRN.ADVISORY SOFTWARE ENGINEER [address] [place] [address] [place] [address] Referral ID Status Reason Start Date Expiration Date V isits Requested Visits Authorized [id number] Closed Auto-Generate d Referral 06/14/2024 07/14/2025 1 1 [facility] for referral (narrative)* Diagnostic Procedure Only (Routine) - Closed Specialty Diagnoses / Procedures Referred By Contac t Referred To Contact [facility] Diagnoses Fall, initial encounter Chronic SI joint pain Procedures XR LUMBAR GENERAL 3V AP/LAT/L5-S1 RADEX SPINE LUMBOSACRAL 2/3 VIEWS Denise Alvarado APRN.QUALITY ASSURANCE PRACTICE MANAGER [address] [place] [address] [place] [address] Referral ID Status Reason Start Date Expiration Date V isits Requested Visits Authorized [id number] Closed Auto-Generate d Referral 10/28/2023 11/26/2024 1 1 [facility] for referral (narrative)* Diagnostic Procedure Only (Routine) - Closed Specialty Diagnoses / Procedures Referred By Contac t Referred To Contact [facility] Diagnoses Fall, initial encounter Right arm pain Right hand pain Procedures XR FOREARM GENERAL 2V AP/LAT RIGHT RADEX FOREARM 2 VIEWS Denise Alvarado APRN.QUALITY ASSURANCE PRACTICE MANAGER [address] [place] [address] [place] [address] Referral ID Status Reason Start Date Expiration Date V isits Requested Visits Authorized [id number] Closed Auto-Generate d Referral 05/24/2023 06/22/2024 1 1 * Diagnostic Procedure Only (Routine) - Closed Specialty Diagnoses / Procedures Referred By Contac t Referred To Contact X[facility] IM[facility] Diagnoses Fall, initial encounter Right arm pain Right hand pain Procedures XR HAND GENERAL 3V PA/LAT/OBL RIGHT RADEX HAND MINIMUM 3 VIEWS Densie Alvarado APRN.QUALITY ASSURANCE PRACTICE MANAGER [address] [place] [address] [place] [address] Referral ID Status Reason Start Date Expiration Date V isits Requested Visits Authorized [id number] Closed Auto-Generate d Referral 05/24/2023 06/22/2024 1 1 [facility] for referral (narrative)* Diagnostic Procedure Only (Routine) - Closed Specialty Diagnoses / Procedures Referred By Contac t Referred To Contact X[facility] Diagnoses Other closed nondisplaced fracture of proximal end of left humerus, initial encounter Procedures XR SHOULDER LIMITED 2V AP/TRUE AP LEFT RADEX SHOULDER COMPLETE MINIMUM 2 VIEWS Klaus Hernandez MD [address] [place] [address] [place] [address] Referral ID Status Reason Start Date Expiration Date V isits Requested Visits Authorized [id number] Closed Auto-Generate d Referral 06/26/2024 07/26/2025 1 1 [facility] for referral (narrative)* Medication Prior Authorization - Closed Specialty Diagnoses / Procedures Referred By Contac t Referred To Contact Denise Alvarado APRN.CNS [address] [place] [address] Phone: tel: fax: Referral ID Status Reason Start Date Expiration Date Visits Re quested Visits Authorized [id number] Closed 1 1 [facility] for referral (narrative)* Medication Prior Authorization - Pending Review Specialty Diagnoses / Procedures Referred By Zoila t Referred To Contact Denise Alvarado APRN.CNS [address] [place] [address] Phone: tel: fax: Referral ID Status Reason Start Date Expiration Date V isits Requested Visits Authorized [id number] Pending Review 1 1 [facility] for referral (narrative)No reason for referral information availableWSelect [facility] [place] Work Phone: Reason for visit Narrative* Diagnostic Procedure Only (Routine) - Closed Specialty Diagnoses / Procedures Referred By Contac t Referred To Contact XR IMAGING Diagnoses Lumbar spondylosis Procedures XR LUMBAR MOTION 4V AP/LAT/ FLEX/EXT RADEX SPINE LUMBOSACRAL MINIMUM 4 VIEWS Jaida Soares MD [address] [facility] [address] [place] [address] [place] [address] Referral ID Status Reason Start Date Expiration Date V isits Requested Visits Authorized [id number] Closed Auto-Generate d Referral 07/01/2023 07/30/2024 1 1 [facility] for visit Narrative* Diagnostic Procedure Only (Routine) - Closed Specialty Diagnoses / Procedures Referred By Contac t Referred To Contact X[facility] IMAG[facility] Diagnoses Fall, initial encounter Chronic SI joint pain Procedures XR LUMBAR GENERAL 3V AP/LAT/L5-S1 RADEX SPINE LUMBOSACRAL 2/3 VIEWS Denise Alvarado, SHRIMP PACKER.QUALITY ASSURANCE PRACTICE MANAGER [address] [place] [address] [place] [address] Referral ID Status Reason Start Date Expiration Date V isits Requested Visits Authorized [id number] Closed Auto-Generate d Referral 10/28/2023 11/26/2024 1 1 [facility] for visit Narrative* Diagnostic Procedure Only (Routine) - Closed Specialty Diagnoses / Procedures Referred By Contac t Referred To Contact XR IMAGING Diagnoses Injury of left rotator cuff, subsequent encounter Procedures XR SHOULDER LIMITED 2V AP/TRUE AP LEFT RADEX SHOULDER COMPLETE MINIMUM 2 VIEWS Cole Bower, SHRIMP PACKER.ADVISORY SOFTWARE ENGINEER [address] [place] [address] [place] [address] Referral ID Status Reason Start Date Expiration Date V isits Requested Visits Authorized [id number] Closed Auto-Generate d Referral 06/14/2024 07/14/2025 1 1 [facility] for visit Narrative* Diagnostic Procedure Only (Routine) - Closed Specialty Diagnoses / Procedures Referred By Contac t Referred To Contact XR IMAGING Diagnoses Fall, initial encounter Right arm pain Right hand pain Procedures XR FOREARM GENERAL 2V AP/LAT RIGHT RADEX FOREARM 2 VIEWS Denise Alvarado, SHRIMP PACKER.QUALITY ASSURANCE PRACTICE MANAGER [address] [place] [address] [place] [address] Referral ID Status Reason Start Date Expiration Date V isits Requested Visits Authorized [id number] Closed Auto-Generate d Referral 05/24/2023 06/22/2024 1 [facility] Diagnostic Procedure Only (Routine) - Closed Specialty Diagnoses / Procedures Referred By Contac t Referred To Contact XR IMAGING Diagnoses Other closed nondisplaced fracture of proximal end of left humerus, initial encounter Procedures XR SHOULDER LIMITED 2V AP/TRUE AP LEFT RADEX SHOULDER COMPLETE MINIMUM 2 VIEWS Klaus Hernandez MD [address] [place] [address] [place] [address] Referral ID Status Reason Start Date Expiration Date V isits Requested Visits Authorized [id number] Closed Auto-Generate d Referral 06/26/2024 07/26/2025 1 1 [facility] Summary Purpose Family History No Family History Records Found Relationship Condition Age at Onset Recorded Date/T adeel mother Diabetes mellitus Unknown father Diabetes mellitus Unknown Advance Directives No Advanced Directives Records Found Advance Directive Response Recorded Date/ Time Advance Directives No November 05, 2016 3:25pm Living Will No August 09 10:08pm Power of Brilliandeer Looper No August 09, 2022 10:08pm Advance Directive Response Recorded Date/ Time Advance Directives No November 05, 2016 4:25pm Living Will No April 09, 2023 8 :00pm Power of Brilliandeer Looper No April 09, 2023 8:00pm Advance Directive Response Recorded Date/ Time Advance Directives No November 05, 2016 3:25pm Living Will No August 12 3:35pm Power of Brilliandeer Looper No August 12, 2023 3:35pm Advance Directive Response Recorded Date/ Time Do you have a Healthcare Power of Brilliandeer Looper? Yes July 09, 2025 4:41pm Advance Directives No November 05, 2016 4:25pm Advance Directive Response Recorded Date/ Time Do you have a Healthcare Power of Brilliandeer Looper? No July 09, 2025 7:36pm Advance Directives No November 05, 2016 4:25pm Medications Administered Section Active Administered Medications - up to 3 most recent administrations Medication Order MAR Action Action Date Dose Rate Site fluorescein-benoxinate 0.25-0.4 % 1 Drop (FLURESS) 1 Drop, BOTH EYES, DIRECTED, Starting on Wed12/25/21 at 1400, Until Wed12/26/21 at 0159, Administer for applanation tonometry. In the event of a Fluress shortage, administer Fenwick-Fluor 1 drop into both eyes as directed for applanation tonometry Given 12/25/2021 2:00 PM EDT 1 Drop PHENYLephrine 2.5 % 1 Drop (AK-DILATE, KINJAL-SYNEPHRINE) 1 Drop, BOTH EYES, DIRECTED, Starting on Melba 12/25/21 at 1400, Until Wed12/26/21 at 0159, Administer for dilation PROTECT FROM LIGHT Given 12/25/2021 2:00 PM EDT 1 Drop tropicamide 1 % 1 Drop (MYDRIACYL) 1 Drop, BOTH EYES, DIRECTED, Starting on Melba 12/25/21 at 1400, Until Wed12/26/21 at 0159, Administer for dilation Given 12/25/2021 2:00 PM EDT 1 Drop Inactive Administered Medications - up to 3 most recent administrations Medication Order MAR Action Action Date Dose Rate Site fluorescein-benoxinate 0.25-0.4 % 1 Drop (FLURESS) 1 Drop, BOTH EYES, ONCE, 1 dose, On Wed12/25/21 at 1330, FOR THE EYE Given 12/25/2021 1:30 PM EDT 1 Drop PHENYLephrine 2.5 % 1 Drop (AK-DILATE, KINJAL-SYNEPHRINE) 1 Drop, BOTH EYES, ONCE, 1 dose, On Wed12/25/21 at 1330, FOR OPHTHALMIC USE ONLY PROTECT FROM LIGHT Given 12/25/2021 1:30 PM EDT 1 Drop tropicamide 1 % 1 Drop (MYDRIACYL) 1 Drop, BOTH EYES, ONCE, 1 dose, On Wed12/25/21 at 1330, FOR THE EYE Given 12/25/2021 1:30 PM EDT 1 Drop Active Administered Medications - up to 3 most recent administrations Medication Order MAR Action Action Date Dose Rate Site fluorescein-benoxinate 0.25-0.4 % 1 Drop (FLURESS) 1 Drop, BOTH EYES, DIRECTED, Starting on 06/15/22 at 1230, Until Wed06/16/22 at 0029, Administer for applanation tonometry. In the event of a Fluress shortage, administer Fenwick-Fluor 1 drop into both eyes as directed for applanation tonometry Given 06/15/2022 12:30 PM EDT 1 Drop PHENYLephrine 2.5 % 1 Drop (AK-DILATE, KINJAL-SYNEPHRINE) 1 Drop, BOTH EYES, DIRECTED, Starting on Wed06/15/22 at 1230, Until Wed06/16/22 at 0029, Administer for dilation PROTECT FROM LIGHT Given 06/15/2022 12:30 PM EDT 1 Drop proparacaine 0.5 % 1 Drop (ALCAINE) 1 Drop, BOTH EYES, DIRECTED, Starting on Wed06/15/22 at 1230, Until Wed06/16/22 at 0029, Administer for pneumo tonometry, tonopen tonometry, or pachymetry. In the event of a proparacaine shortage, administer tetracaine 0.5% ophthalmic drops 1 drop in the left eye as directed for pneumo tonometry, tonopen tonometry, or pachymetry Given 06/15/2022 12:30 PM EDT 1 Drop tropicamide 1 % 1 Drop (MYDRIACYL) 1 Drop, BOTH EYES, DIRECTED, Starting on Wed06/15/22 at 1230, Until Wed06/16/22 at 0029, Administer for dilation Given 06/15/2022 12:30 PM EDT 1 Drop Active Administered Medications - up to 3 most recent administrations Medication Order MAR Action Action Date Dose Rate Site PHENYLephrine 2.5 % 1 Drop (AK-DILATE, KINJAL-SYNEPHRINE) 1 Drop, BOTH EYES, DIRECTED, Starting on Wed09/14/22 at 1400, Until Wed09/15/22 at 0159, Administer for dilation PROTECT FROM LIGHT Given 09/14/2022 1:48 PM EST 1 Drop proparacaine 0.5 % 1 Drop (ALCAINE) 1 Drop, BOTH EYES, DIRECTED, Starting on Wed09/14/22 at 1400, Until Wed09/15/22 at 0159, Administer for pneumo tonometry, tonopen tonometry, or pachymetry. In the event of a proparacaine shortage, administer tetracaine 0.5% ophthalmic drops 1 drop in the left eye as directed for pneumo tonometry, tonopen tonometry, or pachymetry Given 09/14/2022 1:48 PM EST 1 Drop tropicamide 1 % 1 Drop (MYDRIACYL) 1 Drop, BOTH EYES, DIRECTED, Starting on Wed09/14/22 at 1400, Until Wed09/15/22 at 0159, Administer for dilation Given 09/14/2022 1:48 PM EST 1 Drop Active Administered Medications - up to 3 most recent administrations Medication Order MAR Action Action Date Dose Rate Site PHENYLephrine 2.5 % 1 Drop (AK-DILATE) 1 Drop, BOTH EYES, DIRECTED, Starting on Wed12/14/22 at 1430, Until Wed12/15/22 at 0229, Administer for dilation PROTECT FROM LIGHT Given 12/14/2022 2:30 PM EDT 1 Drop proparacaine 0.5 % 1 Drop (ALCAINE) 1 Drop, BOTH EYES, DIRECTED, Starting on Wed12/14/22 at 1430, Until Wed12/15/22 at 0229, Administer for pneumo tonometry, tonopen tonometry, or pachymetry. In the event of a proparacaine shortage, administer tetracaine 0.5% ophthalmic drops 1 drop in the left eye as directed for pneumo tonometry, tonopen tonometry, or pachymetry Given 12/14/2022 2:30 PM EDT 1 Drop tropicamide 1 % 1 Drop (MYDRIACYL) 1 Drop, BOTH EYES, DIRECTED, Starting on Wed12/14/22 at 1430, Until Wed12/15/22 at 0229, Administer for dilation Given 12/14/2022 2:30 PM EDT 1 Drop Active Administered Medications - up to 3 most recent administrations Medication Order MAR Action Action Date Dose Rate Site PHENYLephrine 2.5 % 1 Drop (AK-DILATE, KINJAL-SYNEPHRINE) 1 Drop, BOTH EYES, DIRECTED, Starting on Wed08/12/23 at 1400, Until Wed08/13/23 at 0159, Administer for dilation PROTECT FROM LIGHT Given 08/12/2023 1:33 PM EST 1 Drop proparacaine 0.5 % 1 Drop (ALCAINE) 1 Drop, BOTH EYES, DIRECTED, Starting on Wed08/12/23 at 1400, Until Wed08/13/23 at 0159, Administer for pneumo tonometry, tonopen tonometry, or pachymetry. In the event of a proparacaine shortage, administer tetracaine 0.5% ophthalmic drops 1 drop in the left eye as directed for pneumo tonometry, tonopen tonometry, or pachymetry Given 08/12/2023 1:33 PM EST 1 Drop tropicamide 1 % 1 Drop (MYDRIACYL) 1 Drop, BOTH EYES, DIRECTED, Starting on Wed08/12/23 at 1400, Until Wed08/13/23 at 0159, Administer for dilation Given 08/12/2023 1:33 PM EST 1 Drop Reason for Referral Specialty Diagnoses / Procedures Referred By Contac t Referred To Contact Denise Alvarado APRN.QUALITY ASSURANCE PRACTICE MANAGER [address] [place] [address] Referral ID Status Reason Start Date Expiration Date V isits Requested Visits Authorized [id number] Pending Review 1 1 Specialty Diagnoses / Procedures Referred By Contac t Referred To Contact Ophthalmology Diagnoses Ptosis of eyelid, right Right eye sensitive to light Watery eyes Procedures CONSULT TO OPHTHALMOLOGY OFFICE/OUTPATIENT [facility]3] 60-74 MINUTES Sarina Adams MD [address] [place] [address] Referral ID Status Reason Start Date Expiration Date Visits Requested Visits Authorized [id number] Authorized PCP Requested Referral 01/30/2022 01/30/2023 1 1 Specialty Diagnoses / Procedures Referred By Contac t Referred To Contact Diagnoses 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) Sarina Adams MD [address] [place] [address] Referral ID Status Reason Start Date Expiration Date V isits Requested Visits Authorized [id number] Pending Review 1 1 Specialty Diagnoses / Procedures Referred By Contac t Referred To Contact CT IMAGING Diagnoses Myasthenia gravis (HCC) Procedures CT CHEST WO IVCON DIAGNOSTIC COMPUTED TOMOGRAPHY THORAX W/O CNTRST Sarina Adams MD [address] [place] [address] Ct Imaging Referral ID Status Reason Start Date Expiration Date Visits Requested Visits Authorized [id number] Pending Review Auto-Generat ed Referral 04/01/2022 05/01/2023 1 1 Specialty Diagnoses / Procedures Referred By Contac t Referred To Contact Endocrinology Diagnoses Hypothyroidism (acquired) Procedures CONSULT TO ENDOCRINOLOGY OFFICE/OUTPATIENT [facility]3] 60-74 MINUTES Radha Warner MD [address] [place] [address] Referral ID Status Reason Start Date Expiration Date Visits Requested Visits Authorized [id number] Authorized PCP Requested Referral 06/02/2022 06/02/2023 1 1 Specialty Diagnoses / Procedures Referred By Contac t Referred To Contact CT IMAGING Diagnoses Malignant neoplasm of thymus (HCC) Procedures CT CHEST WO IVCON DIAGNOSTIC COMPUTED TOMOGRAPHY THORAX W/O CNTRST Monty Douglas MD [address] [facility] [address] [place] [address] Ct Imaging Referral ID Status Reason Start Date Expiration Date Visits Requested Visits Authorized [id number] Pending Review Auto-Generat ed Referral 07/03/2022 08/02/2023 1 1 Referral ID Status Reason Start Date Expiration Date V isits Requested Visits Authorized [id number] Closed Auto-Generate d Referral 07/08/2022 09/06/2022 1 1 Specialty Diagnoses / Procedures Referred By Contac t Referred To Contact Diagnoses Mixed hyperlipidemia Sarina Adams MD [address] [place] [address] Referral ID Status Reason Start Date Expiration Date Visits Re quested Visits Authorized [id number] Closed 1 1 Specialty Diagnoses / Procedures Referred By Contac t Referred To Contact Jerrica Duenas APRN.ADVISORY SOFTWARE ENGINEER [address] [place] [address] Referral ID Status Reason Start Date Expiration Date V isits Requested Visits Authorized [id number] Pending Review 1 1 Specialty Diagnoses / Procedures Referred By Contac t Referred To Contact Diagnoses Poorly controlled type 2 diabetes mellitus (HCC) Procedures CONSULT TO DIABETES EDUCATION OFFICE/OUTPATIENT [facility]3] 60-74 MINUTES Jerrica Duenas, SHRIMP PACKER.ADVISORY SOFTWARE ENGINEER [address] [place] [address] Referral ID Status Reason Start Date Expiration Date Visits Requested Visits Authorized [id number] Authorized PCP Requested Referral 10/21/2022 10/21/2023 1 1 Referral ID Status Reason Start Date Expiration Date Visits Re quested Visits Authorized [id number] Closed 1 1 Specialty Diagnoses / Procedures Referred By Contac t Referred To Contact Cole Bower APRN.ADVISORY SOFTWARE ENGINEER [address] [place] [address] Referral ID Status Reason Start Date Expiration Date Visits Re quested Visits Authorized [id number] Closed 1 1 Specialty Diagnoses / Procedures Referred By Contac t Referred To Contact [facility] Diagnoses Pericardial effusion (noninflammatory) Procedures ECHO ECHO TTHRC R-T 2D W/WOM-MODE COMPL SPEC&COLR D Cole Bower APRN.ADVISORY SOFTWARE ENGINEER [address] [place] [address] [facility] [address] [place] [address] Referral ID Status Reason Start Date Expiration Date Visits Requested Visits Authorized [id number] Pending Review Auto-Generat ed Referral 01/15/2023 01/15/2024 1 1 Specialty Diagnoses / Procedures Referred By Contac t Referred To Contact Pain Management Diagnoses Chronic midline low back pain, unspecified whether sciatica present Procedures CONSULT TO PAIN MGT OFFICE/OUTPATIENT [facility]3] 60-74 MINUTES Sarina Adams MD [address] [place] [address] Jaida Soares MD [address] [address] Referral ID Status Reason Start Date Expiration Date Visits Requested Visits Authorized [id number] Authorized PCP Requested Referral 03/26/2023 03/25/2024 1 1 Specialty Diagnoses / Procedures Referred By Contac t Referred To Contact Diagnoses Pericardial effusion Weight gain Leg swelling Denise Alvarado, ODILON.QUALITY ASSURANCE PRACTICE MANAGER [address] [place] [address] Referral ID Status Reason Start Date Expiration Date Visits Re quested Visits Authorized [id number] Closed 1 1 Specialty Diagnoses / Procedures Referred By Contac t Referred To Contact [facility] Diagnoses Pericardial effusion Weight gain Procedures ECHO ECHO TTHRC R-T 2D W/WOM-MODE COMPL SPEC&COLR D Denise Alvarado, SHRIMP PACKER.QUALITY ASSURANCE PRACTICE MANAGER [address] [place] [address] [facility] [address] [place] [address] Referral ID Status Reason Start Date Expiration Date Visits Requested Visits Authorized [id number] Additional Clinical Info Needed Auto-Generat ed Referral 05/24/2023 05/16/2024 1 1 Referral ID Status Reason Start Date Expiration Date Visits Re quested Visits Authorized [id number] Closed 1 1 Specialty Diagnoses / Procedures Referred By Contac t Referred To Contact Diagnoses Leg swelling Weight gain aSrina Adams MD [address] [place] [address] Referral ID Status Reason Start Date Expiration Date Visits Re quested Visits Authorized [id number] Closed 1 1 Specialty Diagnoses / Procedures Referred By Contac t Referred To Contact Diagnoses 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) Cole Bower, SHRIMP PACKER.ADVISORY SOFTWARE ENGINEER [address] [place] [address] Referral ID Status Reason Start Date Expiration Date V isits Requested Visits Authorized [id number] Authorized 12/10/2023 12/08/2024 1 1 Specialty Diagnoses / Procedures Referred By Contac t Referred To Contact CT IMAGING Diagnoses Encounter for screening for lung cancer Former smoker Procedures CT LUNG SCREEN WO IVCON COMPUTED TOMOGRAPHY THORAX LW DOSE LNG CA Kay Frankel, SHRIMP PACKER.ADVISORY SOFTWARE ENGINEER [address] [place] [address] [place] [address] Referral ID Status Reason Start Date Expiration Date Visits Requested Visits Authorized [id number] Pending Review Auto-Generat ed Referral 01/03/2024 02/01/2025 1 1 Specialty Diagnoses / Procedures Referred By Contac t Referred To Contact CT IMAGING Diagnoses Former smoker Procedures CT LUNG SCREEN WO IVCON COMPUTED TOMOGRAPHY THORAX LW DOSE LNG CA Kay Frankel APRN.ADVISORY SOFTWARE ENGINEER [address] [place] [id number] Imaging [place] [address] Referral ID Status Reason Start Date Expiration Date Visits Requested Visits Authorized [id number] Pending Review Auto-Generat ed Referral 02/08/2024 03/09/2025 1 1 Specialty Diagnoses / Procedures Referred By Contac t Referred To Contact Diagnoses Chronic midline low back pain, unspecified whether sciatica present Chronic SI joint pain Sarina Adams MD [address] [place] [address] Referral ID Status Reason Start Date Expiration Date Visits Re quested Visits Authorized [id number] Closed 1 1 Specialty Diagnoses / Procedures Referred By Contac t Referred To Contact Orthopedics Diagnoses Injury of left rotator cuff, subsequent encounter Procedures CONSULT TO ORTHOPAEDICS OFFICE/OUTPATIENT [facility]3] 60 MINUTES Cole Bower SHRIMP PACKER.ADVISORY SOFTWARE ENGINEER [address] [place] [address] Referral ID Status Reason Start Date Expiration Date Visits Requested Visits Authorized [id number] Authorized PCP Requested Referral 05/16/2024 05/16/2025 1 1 Specialty Diagnoses / Procedures Referred By Contac t Referred To Contact Diagnoses Chronic midline low back pain, unspecified whether sciatica present Chronic SI joint pain Cole Bower SHRIMP PACKER.ADVISORY SOFTWARE ENGINEER [address] [place] [address] Referral ID Status Reason Start Date Expiration Date Visits Re quested Visits Authorized [id number] Closed 1 1 Referral ID Status Reason Start Date Expiration Date V isits Requested Visits Authorized [id number] Pending Review 07/12/2024 09/10/2024 1 1 Referral ID Status Reason Start Date Expiration Date V isits Requested Visits Authorized [id number] Pending Review 1 1 Chief Complaint and Reason for Visit Chief Complaint general illness COMPLICATED URINARY TRACT INFECTION Reason for Visit Anemia Elevated lipase Leukocytosis Pericardial effusion Thrombocytopenia Urinary retention UTI (urinary tract infection) Chief Complaint sob WEAKNESS Chief Complaint CP Chief Complaint Admit Date AECHF July 09, 2025 6: 29pm AECHF July 09, 2025 6: 34pm Reason for Visit Admit Date Dyspnea on exertion July 09, 2025 6: 29pm Swelling of both lower extremities Octob er 2024 6:29pm Acute on chronic hypoxic respiratory ricky lure July 09, 2025 6:29pm CHF exacerbation July 09, 2025 6: 29pm Chief Complaint Admit Date AECHF July 09, 2025 6: 29pm AECHF July 09, 2025 6: 34pm AECHF July 10, 2025 7: 33am AECHF July 11, 2025 10 :54am AECHF July 12, 2025 3: 00pm Reason for Visit Admit Date 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 re with preserved ejection fraction July 09, 2025 6:29pm Acute on chronic hypoxic respiratory ricky lure July 09, 2025 6:29pm CHF exacerbation July 09, 2025 6: 29pm Dyspnea on exertion July 09, 2025 6: 29pm Swelling of both lower extremities Octob er 2024 6:29pm Fluid overload July 09, 2025 6: 29pm Additional Source Comments INFORMATION SOURCE (unrecogn ized section and content) DATE CREATED AUTHOR 03/04/2019 [facility] ([place]) DATE CREATED AUTHOR AUTHOR'S ORGANIZ ATION 06/09/2021 [facility] DATE CREATED AUTHOR AUTHOR'S ORGANIZ ATION 06/20/2021 [facility] DATE CREATED AUTHOR AUTHOR'S ORGANIZ ATION 07/08/2023 [facility] DATE CREATED AUTHOR AUTHOR'S ORGANIZ ATION 08/11/2025 [facility] DATE CREATED AUTHOR AUTHOR'S ORGANIZ ATION 08/14/[address] [facility] Source Comments (unrecognize d section and content) In the event this informatio n is protected by the Federal Confidentiality of Alcohol and Drug Abuse Patient Records regulations: The Federal rules restrict any use of the information to criminally investigate or prosecute any alcohol or drug abuse patient.[facility] the event this information is protected by the Federal Confidentiality of Alcohol and Drug Abuse Patient Records regulations: The Federal rules restrict any use of the information to criminally investigate or prosecute any alcohol or drug abuse patient.[facility] the event this information is protected by the Federal Confidentiality of Alcohol and Drug Abuse Patient Records regulations: The Federal rules restrict any use of the information to criminally investigate or prosecute any alcohol or drug abuse patient.[facility] the event this information is protected by the Federal Confidentiality of Alcohol and Drug Abuse Patient Records regulations: The Federal rules restrict any use of the information to criminally investigate or prosecute any alcohol or drug abuse patient.[facility] the event this information is protected by the Federal Confidentiality of Alcohol and Drug Abuse Patient Records regulations: The Federal rules restrict any use of the information to criminally investigate or prosecute any alcohol or drug abuse patient.[facility] the event this information is protected by the Federal Confidentiality of Alcohol and Drug Abuse Patient Records regulations: The Federal rules restrict any use of the information to criminally investigate or prosecute any alcohol or drug abuse patient.[facility] the event this information is protected by the Federal Confidentiality of Alcohol and Drug Abuse Patient Records regulations: The Federal rules restrict any use of the information to criminally investigate or prosecute any alcohol or drug abuse patient.[facility] the event this information is protected by the Federal Confidentiality of Alcohol and Drug Abuse Patient Records regulations: The Federal rules restrict any use of the information to criminally investigate or prosecute any alcohol or drug abuse patient.[facility] the event this information is protected by the Federal Confidentiality of Alcohol and Drug Abuse Patient Records regulations: The Federal rules restrict any use of the information to criminally investigate or prosecute any alcohol or drug abuse patient.[facility] the event this information is protected by the Federal Confidentiality of Alcohol and Drug Abuse Patient Records regulations: The Federal rules restrict any use of the information to criminally investigate or prosecute any alcohol or drug abuse patient.[facility] the event this information is protected by the Federal Confidentiality of Alcohol and Drug Abuse Patient Records regulations: The Federal rules restrict any use of the information to criminally investigate or prosecute any alcohol or drug abuse patient.[facility] the event this information is protected by the Federal Confidentiality of Alcohol and Drug Abuse Patient Records regulations: The Federal rules restrict any use of the information to criminally investigate or prosecute any alcohol or drug abuse patient.[facility] the event this information is protected by the Federal Confidentiality of Alcohol and Drug Abuse Patient Records regulations: The Federal rules restrict any use of the information to criminally investigate or prosecute any alcohol or drug abuse patient.[facility] the event this information is protected by the Federal Confidentiality of Alcohol and Drug Abuse Patient Records regulations: The Federal rules restrict any use of the information to criminally investigate or prosecute any alcohol or drug abuse patient.[facility] the event this information is protected by the Federal Confidentiality of Alcohol and Drug Abuse Patient Records regulations: The Federal rules restrict any use of the information to criminally investigate or prosecute any alcohol or drug abuse patient.[facility] TownshipIn the event this information is protected by the Federal Confidentiality of Alcohol and Drug Abuse Patient Records regulations: The Federal rules restrict any use of the information to criminally investigate or prosecute any alcohol or drug abuse patient.[facility] TownshipIn the event this information is protected by the Federal Confidentiality of Alcohol and Drug Abuse Patient Records regulations: The Federal rules restrict any use of the information to criminally investigate or prosecute any alcohol or drug abuse patient.[facility] TownshipIn the event this information is protected by the Federal Confidentiality of Alcohol and Drug Abuse Patient Records regulations: The Federal rules restrict any use of the information to criminally investigate or prosecute any alcohol or drug abuse patient.[facility] TownshipIn the event this information is protected by the Federal Confidentiality of Alcohol and Drug Abuse Patient Records regulations: The Federal rules restrict any use of the information to criminally investigate or prosecute any alcohol or drug abuse patient.[facility] TownshipIn the event this information is protected by the Federal Confidentiality of Alcohol and Drug Abuse Patient Records regulations: The Federal rules restrict any use of the information to criminally investigate or prosecute any alcohol or drug abuse patient.[facility] TownshipIn the event this information is protected by the Federal Confidentiality of Alcohol and Drug Abuse Patient Records regulations: The Federal rules restrict any use of the information to criminally investigate or prosecute any alcohol or drug abuse patient.[facility] TownshipIn the event this information is protected by the Federal Confidentiality of Alcohol and Drug Abuse Patient Records regulations: The Federal rules restrict any use of the information to criminally investigate or prosecute any alcohol or drug abuse patient.[facility] TownshipIn the event this information is protected by the Federal Confidentiality of Alcohol and Drug Abuse Patient Records regulations: The Federal rules restrict any use of the information to criminally investigate or prosecute any alcohol or drug abuse patient.[facility] TownshipIn the event this information is protected by the Federal Confidentiality of Alcohol and Drug Abuse Patient Records regulations: The Federal rules restrict any use of the information to criminally investigate or prosecute any alcohol or drug abuse patient.[facility] TownshipIn the event this information is protected by the Federal Confidentiality of Alcohol and Drug Abuse Patient Records regulations: The Federal rules restrict any use of the information to criminally investigate or prosecute any alcohol or drug abuse patient.[facility] TownshipIn the event this information is protected by the Federal Confidentiality of Alcohol and Drug Abuse Patient Records regulations: The Federal rules restrict any use of the information to criminally investigate or prosecute any alcohol or drug abuse patient.[facility] TownshipIn the event this information is protected by the Federal Confidentiality of Alcohol and Drug Abuse Patient Records regulations: The Federal rules restrict any use of the information to criminally investigate or prosecute any alcohol or drug abuse patient.[facility] TownshipIn the event this information is protected by the Federal Confidentiality of Alcohol and Drug Abuse Patient Records regulations: The Federal rules restrict any use of the information to criminally investigate or prosecute any alcohol or drug abuse patient.[facility] TownshipIn the event this information is protected by the Federal Confidentiality of Alcohol and Drug Abuse Patient Records regulations: The Federal rules restrict any use of the information to criminally investigate or prosecute any alcohol or drug abuse patient.[facility] TownshipIn the event this information is protected by the Federal Confidentiality of Alcohol and Drug Abuse Patient Records regulations: The Federal rules restrict any use of the information to criminally investigate or prosecute any alcohol or drug abuse patient.[facility] TownshipIn the event this information is protected by the Federal Confidentiality of Alcohol and Drug Abuse Patient Records regulations: The Federal rules restrict any use of the information to criminally investigate or prosecute any alcohol or drug abuse patient.[facility] TownshipIn the event this information is protected by the Federal Confidentiality of Alcohol and Drug Abuse Patient Records regulations: The Federal rules restrict any use of the information to criminally investigate or prosecute any alcohol or drug abuse patient.[facility] TownshipIn the event this information is protected by the Federal Confidentiality of Alcohol and Drug Abuse Patient Records regulations: The Federal rules restrict any use of the information to criminally investigate or prosecute any alcohol or drug abuse patient.[facility] TownshipIn the event this information is protected by the Federal Confidentiality of Alcohol and Drug Abuse Patient Records regulations: The Federal rules restrict any use of the information to criminally investigate or prosecute any alcohol or drug abuse patient.[facility] TownshipIn the event this information is protected by the Federal Confidentiality of Alcohol and Drug Abuse Patient Records regulations: The Federal rules restrict any use of the information to criminally investigate or prosecute any alcohol or drug abuse patient.[facility] TownshipIn the event this information is protected by the Federal Confidentiality of Alcohol and Drug Abuse Patient Records regulations: The Federal rules restrict any use of the information to criminally investigate or prosecute any alcohol or drug abuse patient.[facility] TownshipIn the event this information is protected by the Federal Confidentiality of Alcohol and Drug Abuse Patient Records regulations: The Federal rules restrict any use of the information to criminally investigate or prosecute any alcohol or drug abuse patient.[facility] TownshipIn the event this information is protected by the Federal Confidentiality of Alcohol and Drug Abuse Patient Records regulations: The Federal rules restrict any use of the information to criminally investigate or prosecute any alcohol or drug abuse patient.[facility] TownshipIn the event this information is protected by the Federal Confidentiality of Alcohol and Drug Abuse Patient Records regulations: The Federal rules restrict any use of the information to criminally investigate or prosecute any alcohol or drug abuse patient.[facility] TownshipIn the event this information is protected by the Federal Confidentiality of Alcohol and Drug Abuse Patient Records regulations: The Federal rules restrict any use of the information to criminally investigate or prosecute any alcohol or drug abuse patient.[facility] TownshipIn the event this information is protected by the Federal Confidentiality of Alcohol and Drug Abuse Patient Records regulations: The Federal rules restrict any use of the information to criminally investigate or prosecute any alcohol or drug abuse patient.[facility] TownshipIn the event this information is protected by the Federal Confidentiality of Alcohol and Drug Abuse Patient Records regulations: The Federal rules restrict any use of the information to criminally investigate or prosecute any alcohol or drug abuse patient.[facility] TownshipIn the event this information is protected by the Federal Confidentiality of Alcohol and Drug Abuse Patient Records regulations: The Federal rules restrict any use of the information to criminally investigate or prosecute any alcohol or drug abuse patient.[facility] TownshipIn the event this information is protected by the Federal Confidentiality of Alcohol and Drug Abuse Patient Records regulations: The Federal rules restrict any use of the information to criminally investigate or prosecute any alcohol or drug abuse patient.[facility] TownshipIn the event this information is protected by the Federal Confidentiality of Alcohol and Drug Abuse Patient Records regulations: The Federal rules restrict any use of the information to criminally investigate or prosecute any alcohol or drug abuse patient.[facility] TownshipIn the event this information is protected by the Federal Confidentiality of Alcohol and Drug Abuse Patient Records regulations: The Federal rules restrict any use of the information to criminally investigate or prosecute any alcohol or drug abuse patient.[facility] TownshipIn the event this information is protected by the Federal Confidentiality of Alcohol and Drug Abuse Patient Records regulations: The Federal rules restrict any use of the information to criminally investigate or prosecute any alcohol or drug abuse patient.[facility] TownshipIn the event this information is protected by the Federal Confidentiality of Alcohol and Drug Abuse Patient Records regulations: The Federal rules restrict any use of the information to criminally investigate or prosecute any alcohol or drug abuse patient.[facility] TownshipIn the event this information is protected by the Federal Confidentiality of Alcohol and Drug Abuse Patient Records regulations: The Federal rules restrict any use of the information to criminally investigate or prosecute any alcohol or drug abuse patient.[facility] TownshipIn the event this information is protected by the Federal Confidentiality of Alcohol and Drug Abuse Patient Records regulations: The Federal rules restrict any use of the information to criminally investigate or prosecute any alcohol or drug abuse patient.[facility] TownshipIn the event this information is protected by the Federal Confidentiality of Alcohol and Drug Abuse Patient Records regulations: The Federal rules restrict any use of the information to criminally investigate or prosecute any alcohol or drug abuse patient.[facility] TownshipIn the event this information is protected by the Federal Confidentiality of Alcohol and Drug Abuse Patient Records regulations: The Federal rules restrict any use of the information to criminally investigate or prosecute any alcohol or drug abuse patient.[facility] TownshipIn the event this information is protected by the Federal Confidentiality of Alcohol and Drug Abuse Patient Records regulations: The Federal rules restrict any use of the information to criminally investigate or prosecute any alcohol or drug abuse patient.[facility] TownshipIn the event this information is protected by the Federal Confidentiality of Alcohol and Drug Abuse Patient Records regulations: The Federal rules restrict any use of the information to criminally investigate or prosecute any alcohol or drug abuse patient.[facility] TownshipIn the event this information is protected by the Federal Confidentiality of Alcohol and Drug Abuse Patient Records regulations: The Federal rules restrict any use of the information to criminally investigate or prosecute any alcohol or drug abuse patient.[facility] TownshipIn the event this information is protected by the Federal Confidentiality of Alcohol and Drug Abuse Patient Records regulations: The Federal rules restrict any use of the information to criminally investigate or prosecute any alcohol or drug abuse patient.[facility] TownshipIn the event this information is protected by the Federal Confidentiality of Alcohol and Drug Abuse Patient Records regulations: The Federal rules restrict any use of the information to criminally investigate or prosecute any alcohol or drug abuse patient.[facility] TownshipIn the event this information is protected by the Federal Confidentiality of Alcohol and Drug Abuse Patient Records regulations: The Federal rules restrict any use of the information to criminally investigate or prosecute any alcohol or drug abuse patient.[facility] TownshipIn the event this information is protected by the Federal Confidentiality of Alcohol and Drug Abuse Patient Records regulations: The Federal rules restrict any use of the information to criminally investigate or prosecute any alcohol or drug abuse patient.[facility] TownshipIn the event this information is protected by the Federal Confidentiality of Alcohol and Drug Abuse Patient Records regulations: The Federal rules restrict any use of the information to criminally investigate or prosecute any alcohol or drug abuse patient.[facility] TownshipIn the event this information is protected by the Federal Confidentiality of Alcohol and Drug Abuse Patient Records regulations: The Federal rules restrict any use of the information to criminally investigate or prosecute any alcohol or drug abuse patient.[facility] TownshipIn the event this information is protected by the Federal Confidentiality of Alcohol and Drug Abuse Patient Records regulations: The Federal rules restrict any use of the information to criminally investigate or prosecute any alcohol or drug abuse patient.[facility] TownshipIn the event this information is protected by the Federal Confidentiality of Alcohol and Drug Abuse Patient Records regulations: The Federal rules restrict any use of the information to criminally investigate or prosecute any alcohol or drug abuse patient.[facility] TownshipIn the event this information is protected by the Federal Confidentiality of Alcohol and Drug Abuse Patient Records regulations: The Federal rules restrict any use of the information to criminally investigate or prosecute any alcohol or drug abuse patient.[facility] TownshipIn the event this information is protected by the Federal Confidentiality of Alcohol and Drug Abuse Patient Records regulations: The Federal rules restrict any use of the information to criminally investigate or prosecute any alcohol or drug abuse patient.[facility] TownshipIn the event this information is protected by the Federal Confidentiality of Alcohol and Drug Abuse Patient Records regulations: The Federal rules restrict any use of the information to criminally investigate or prosecute any alcohol or drug abuse patient.[facility] TownshipIn the event this information is protected by the Federal Confidentiality of Alcohol and Drug Abuse Patient Records regulations: The Federal rules restrict any use of the information to criminally investigate or prosecute any alcohol or drug abuse patient.[facility] TownshipIn the event this information is protected by the Federal Confidentiality of Alcohol and Drug Abuse Patient Records regulations: The Federal rules restrict any use of the information to criminally investigate or prosecute any alcohol or drug abuse patient.[facility] TownshipIn the event this information is protected by the Federal Confidentiality of Alcohol and Drug Abuse Patient Records regulations: The Federal rules restrict any use of the information to criminally investigate or prosecute any alcohol or drug abuse patient.[facility] TownshipIn the event this information is protected by the Federal Confidentiality of Alcohol and Drug Abuse Patient Records regulations: The Federal rules restrict any use of the information to criminally investigate or prosecute any alcohol or drug abuse patient.[facility] TownshipIn the event this information is protected by the Federal Confidentiality of Alcohol and Drug Abuse Patient Records regulations: The Federal rules restrict any use of the information to criminally investigate or prosecute any alcohol or drug abuse patient.[facility] TownshipIn the event this information is protected by the Federal Confidentiality of Alcohol and Drug Abuse Patient Records regulations: The Federal rules restrict any use of the information to criminally investigate or prosecute any alcohol or drug abuse patient.[facility] TownshipIn the event this information is protected by the Federal Confidentiality of Alcohol and Drug Abuse Patient Records regulations: The Federal rules restrict any use of the information to criminally investigate or prosecute any alcohol or drug abuse patient.[facility] TownshipIn the event this information is protected by the Federal Confidentiality of Alcohol and Drug Abuse Patient Records regulations: The Federal rules restrict any use of the information to criminally investigate or prosecute any alcohol or drug abuse patient.[facility] TownshipIn the event this information is protected by the Federal Confidentiality of Alcohol and Drug Abuse Patient Records regulations: The Federal rules restrict any use of the information to criminally investigate or prosecute any alcohol or drug abuse patient.[facility] TownshipIn the event this information is protected by the Federal Confidentiality of Alcohol and Drug Abuse Patient Records regulations: The Federal rules restrict any use of the information to criminally investigate or prosecute any alcohol or drug abuse patient.[facility] TownshipIn the event this information is protected by the Federal Confidentiality of Alcohol and Drug Abuse Patient Records regulations: The Federal rules restrict any use of the information to criminally investigate or prosecute any alcohol or drug abuse patient.[facility] TownshipIn the event this information is protected by the Federal Confidentiality of Alcohol and Drug Abuse Patient Records regulations: The Federal rules restrict any use of the information to criminally investigate or prosecute any alcohol or drug abuse patient.[facility] TownshipIn the event this information is protected by the Federal Confidentiality of Alcohol and Drug Abuse Patient Records regulations: The Federal rules restrict any use of the information to criminally investigate or prosecute any alcohol or drug abuse patient.[facility] TownshipIn the event this information is protected by the Federal Confidentiality of Alcohol and Drug Abuse Patient Records regulations: The Federal rules restrict any use of the information to criminally investigate or prosecute any alcohol or drug abuse patient.[facility] TownshipIn the event this information is protected by the Federal Confidentiality of Alcohol and Drug Abuse Patient Records regulations: The Federal rules restrict any use of the information to criminally investigate or prosecute any alcohol or drug abuse patient.[facility] TownshipIn the event this information is protected by the Federal Confidentiality of Alcohol and Drug Abuse Patient Records regulations: The Federal rules restrict any use of the information to criminally investigate or prosecute any alcohol or drug abuse patient.[facility] TownshipIn the event this information is protected by the Federal Confidentiality of Alcohol and Drug Abuse Patient Records regulations: The Federal rules restrict any use of the information to criminally investigate or prosecute any alcohol or drug abuse patient.[facility] TownshipIn the event this information is protected by the Federal Confidentiality of Alcohol and Drug Abuse Patient Records regulations: The Federal rules restrict any use of the information to criminally investigate or prosecute any alcohol or drug abuse patient.[facility] TownshipIn the event this information is protected by the Federal Confidentiality of Alcohol and Drug Abuse Patient Records regulations: The Federal rules restrict any use of the information to criminally investigate or prosecute any alcohol or drug abuse patient.[facility] TownshipIn the event this information is protected by the Federal Confidentiality of Alcohol and Drug Abuse Patient Records regulations: The Federal rules restrict any use of the information to criminally investigate or prosecute any alcohol or drug abuse patient.[facility] TownshipIn the event this information is protected by the Federal Confidentiality of Alcohol and Drug Abuse Patient Records regulations: The Federal rules restrict any use of the information to criminally investigate or prosecute any alcohol or drug abuse patient.[facility] TownshipIn the event this information is protected by the Federal Confidentiality of Alcohol and Drug Abuse Patient Records regulations: The Federal rules restrict any use of the information to criminally investigate or prosecute any alcohol or drug abuse patient.[facility] TownshipIn the event this information is protected by the Federal Confidentiality of Alcohol and Drug Abuse Patient Records regulations: The Federal rules restrict any use of the information to criminally investigate or prosecute any alcohol or drug abuse patient.[facility] TownshipIn the event this information is protected by the Federal Confidentiality of Alcohol and Drug Abuse Patient Records regulations: The Federal rules restrict any use of the information to criminally investigate or prosecute any alcohol or drug abuse patient.[facility] TownshipIn the event this information is protected by the Federal Confidentiality of Alcohol and Drug Abuse Patient Records regulations: The Federal rules restrict any use of the information to criminally investigate or prosecute any alcohol or drug abuse patient.[facility] TownshipIn the event this information is protected by the Federal Confidentiality of Alcohol and Drug Abuse Patient Records regulations: The Federal rules restrict any use of the information to criminally investigate or prosecute any alcohol or drug abuse patient.[facility] TownshipIn the event this information is protected by the Federal Confidentiality of Alcohol and Drug Abuse Patient Records regulations: The Federal rules restrict any use of the information to criminally investigate or prosecute any alcohol or drug abuse patient.[facility] TownshipIn the event this information is protected by the Federal Confidentiality of Alcohol and Drug Abuse Patient Records regulations: The Federal rules restrict any use of the information to criminally investigate or prosecute any alcohol or drug abuse patient.[facility] TownshipIn the event this information is protected by the Federal Confidentiality of Alcohol and Drug Abuse Patient Records regulations: The Federal rules restrict any use of the information to criminally investigate or prosecute any alcohol or drug abuse patient.[facility] TownshipIn the event this information is protected by the Federal Confidentiality of Alcohol and Drug Abuse Patient Records regulations: The Federal rules restrict any use of the information to criminally investigate or prosecute any alcohol or drug abuse patient.[facility] TownshipIn the event this information is protected by the Federal Confidentiality of Alcohol and Drug Abuse Patient Records regulations: The Federal rules restrict any use of the information to criminally investigate or prosecute any alcohol or drug abuse patient.[facility] TownshipIn the event this information is protected by the Federal Confidentiality of Alcohol and Drug Abuse Patient Records regulations: The Federal rules restrict any use of the information to criminally investigate or prosecute any alcohol or drug abuse patient.[facility] TownshipIn the event this information is protected by the Federal Confidentiality of Alcohol and Drug Abuse Patient Records regulations: The Federal rules restrict any use of the information to criminally investigate or prosecute any alcohol or drug abuse patient.[facility] TownshipIn the event this information is protected by the Federal Confidentiality of Alcohol and Drug Abuse Patient Records regulations: The Federal rules restrict any use of the information to criminally investigate or prosecute any alcohol or drug abuse patient.[facility] TownshipIn the event this information is protected by the Federal Confidentiality of Alcohol and Drug Abuse Patient Records regulations: The Federal rules restrict any use of the information to criminally investigate or prosecute any alcohol or drug abuse patient.[facility] TownshipIn the event this information is protected by the Federal Confidentiality of Alcohol and Drug Abuse Patient Records regulations: The Federal rules restrict any use of the information to criminally investigate or prosecute any alcohol or drug abuse patient.[facility] TownshipIn the event this information is protected by the Federal Confidentiality of Alcohol and Drug Abuse Patient Records regulations: The Federal rules restrict any use of the information to criminally investigate or prosecute any alcohol or drug abuse patient.[facility] TownshipIn the event this information is protected by the Federal Confidentiality of Alcohol and Drug Abuse Patient Records regulations: The Federal rules restrict any use of the information to criminally investigate or prosecute any alcohol or drug abuse patient.[facility] TownshipIn the event this information is protected by the Federal Confidentiality of Alcohol and Drug Abuse Patient Records regulations: The Federal rules restrict any use of the information to criminally investigate or prosecute any alcohol or drug abuse patient.[facility] TownshipIn the event this information is protected by the Federal Confidentiality of Alcohol and Drug Abuse Patient Records regulations: The Federal rules restrict any use of the information to criminally investigate or prosecute any alcohol or drug abuse patient.[facility] TownshipIn the event this information is protected by the Federal Confidentiality of Alcohol and Drug Abuse Patient Records regulations: The Federal rules restrict any use of the information to criminally investigate or prosecute any alcohol or drug abuse patient.[facility] TownshipIn the event this information is protected by the Federal Confidentiality of Alcohol and Drug Abuse Patient Records regulations: The Federal rules restrict any use of the information to criminally investigate or prosecute any alcohol or drug abuse patient.[facility] TownshipIn the event this information is protected by the Federal Confidentiality of Alcohol and Drug Abuse Patient Records regulations: The Federal rules restrict any use of the information to criminally investigate or prosecute any alcohol or drug abuse patient.[facility] TownshipIn the event this information is protected by the Federal Confidentiality of Alcohol and Drug Abuse Patient Records regulations: The Federal rules restrict any use of the information to criminally investigate or prosecute any alcohol or drug abuse patient.[facility] TownshipIn the event this information is protected by the Federal Confidentiality of Alcohol and Drug Abuse Patient Records regulations: The Federal rules restrict any use of the information to criminally investigate or prosecute any alcohol or drug abuse patient.[facility] TownshipIn the event this information is protected by the Federal Confidentiality of Alcohol and Drug Abuse Patient Records regulations: The Federal rules restrict any use of the information to criminally investigate or prosecute any alcohol or drug abuse patient.[facility] TownshipIn the event this information is protected by the Federal Confidentiality of Alcohol and Drug Abuse Patient Records regulations: The Federal rules restrict any use of the information to criminally investigate or prosecute any alcohol or drug abuse patient.[facility] TownshipIn the event this information is protected by the Federal Confidentiality of Alcohol and Drug Abuse Patient Records regulations: The Federal rules restrict any use of the information to criminally investigate or prosecute any alcohol or drug abuse patient.[facility] TownshipIn the event this information is protected by the Federal Confidentiality of Alcohol and Drug Abuse Patient Records regulations: The Federal rules restrict any use of the information to criminally investigate or prosecute any alcohol or drug abuse patient.[facility] TownshipIn the event this information is protected by the Federal Confidentiality of Alcohol and Drug Abuse Patient Records regulations: The Federal rules restrict any use of the information to criminally investigate or prosecute any alcohol or drug abuse patient.[facility] TownshipIn the event this information is protected by the Federal Confidentiality of Alcohol and Drug Abuse Patient Records regulations: The Federal rules restrict any use of the information to criminally investigate or prosecute any alcohol or drug abuse patient.[facility] TownshipIn the event this information is protected by the Federal Confidentiality of Alcohol and Drug Abuse Patient Records regulations: The Federal rules restrict any use of the information to criminally investigate or prosecute any alcohol or drug abuse patient.[facility] TownshipIn the event this information is protected by the Federal Confidentiality of Alcohol and Drug Abuse Patient Records regulations: The Federal rules restrict any use of the information to criminally investigate or prosecute any alcohol or drug abuse patient.[facility] TownshipIn the event this information is protected by the Federal Confidentiality of Alcohol and Drug Abuse Patient Records regulations: The Federal rules restrict any use of the information to criminally investigate or prosecute any alcohol or drug abuse patient.[facility] TownshipIn the event this information is protected by the Federal Confidentiality of Alcohol and Drug Abuse Patient Records regulations: The Federal rules restrict any use of the information to criminally investigate or prosecute any alcohol or drug abuse patient.[facility] TownshipIn the event this information is protected by the Federal Confidentiality of Alcohol and Drug Abuse Patient Records regulations: The Federal rules restrict any use of the information to criminally investigate or prosecute any alcohol or drug abuse patient.[facility] TownshipIn the event this information is protected by the Federal Confidentiality of Alcohol and Drug Abuse Patient Records regulations: The Federal rules restrict any use of the information to criminally investigate or prosecute any alcohol or drug abuse patient.[facility] TownshipIn the event this information is protected by the Federal Confidentiality of Alcohol and Drug Abuse Patient Records regulations: The Federal rules restrict any use of the information to criminally investigate or prosecute any alcohol or drug abuse patient.[facility] TownshipIn the event this information is protected by the Federal Confidentiality of Alcohol and Drug Abuse Patient Records regulations: The Federal rules restrict any use of the information to criminally investigate or prosecute any alcohol or drug abuse patient.[facility] TownshipIn the event this information is protected by the Federal Confidentiality of Alcohol and Drug Abuse Patient Records regulations: The Federal rules restrict any use of the information to criminally investigate or prosecute any alcohol or drug abuse patient.[facility] TownshipIn the event this information is protected by the Federal Confidentiality of Alcohol and Drug Abuse Patient Records regulations: The Federal rules restrict any use of the information to criminally investigate or prosecute any alcohol or drug abuse patient.[facility] TownshipIn the event this information is protected by the Federal Confidentiality of Alcohol and Drug Abuse Patient Records regulations: The Federal rules restrict any use of the information to criminally investigate or prosecute any alcohol or drug abuse patient.[facility] TownshipIn the event this information is protected by the Federal Confidentiality of Alcohol and Drug Abuse Patient Records regulations: The Federal rules restrict any use of the information to criminally investigate or prosecute any alcohol or drug abuse patient.[facility] TownshipIn the event this information is protected by the Federal Confidentiality of Alcohol and Drug Abuse Patient Records regulations: The Federal rules restrict any use of the information to criminally investigate or prosecute any alcohol or drug abuse patient.[facility] TownshipIn the event this information is protected by the Federal Confidentiality of Alcohol and Drug Abuse Patient Records regulations: The Federal rules restrict any use of the information to criminally investigate or prosecute any alcohol or drug abuse patient.[facility] TownshipIn the event this information is protected by the Federal Confidentiality of Alcohol and Drug Abuse Patient Records regulations: The Federal rules restrict any use of the information to criminally investigate or prosecute any alcohol or drug abuse patient.[facility] TownshipIn the event this information is protected by the Federal Confidentiality of Alcohol and Drug Abuse Patient Records regulations: The Federal rules restrict any use of the information to criminally investigate or prosecute any alcohol or drug abuse patient.[facility] TownshipIn the event this information is protected by the Federal Confidentiality of Alcohol and Drug Abuse Patient Records regulations: The Federal rules restrict any use of the information to criminally investigate or prosecute any alcohol or drug abuse patient.[facility] TownshipIn the event this information is protected by the Federal Confidentiality of Alcohol and Drug Abuse Patient Records regulations: The Federal rules restrict any use of the information to criminally investigate or prosecute any alcohol or drug abuse patient.[facility] TownshipIn the event this information is protected by the Federal Confidentiality of Alcohol and Drug Abuse Patient Records regulations: The Federal rules restrict any use of the information to criminally investigate or prosecute any alcohol or drug abuse patient.[facility] TownshipIn the event this information is protected by the Federal Confidentiality of Alcohol and Drug Abuse Patient Records regulations: The Federal rules restrict any use of the information to criminally investigate or prosecute any alcohol or drug abuse patient.[facility] TownshipIn the event this information is protected by the Federal Confidentiality of Alcohol and Drug Abuse Patient Records regulations: The Federal rules restrict any use of the information to criminally investigate or prosecute any alcohol or drug abuse patient.[facility] TownshipIn the event this information is protected by the Federal Confidentiality of Alcohol and Drug Abuse Patient Records regulations: The Federal rules restrict any use of the information to criminally investigate or prosecute any alcohol or drug abuse patient.[facility] TownshipIn the event this information is protected by the Federal Confidentiality of Alcohol and Drug Abuse Patient Records regulations: The Federal rules restrict any use of the information to criminally investigate or prosecute any alcohol or drug abuse patient.[facility] TownshipIn the event this information is protected by the Federal Confidentiality of Alcohol and Drug Abuse Patient Records regulations: The Federal rules restrict any use of the information to criminally investigate or prosecute any alcohol or drug abuse patient.[facility] TownshipIn the event this information is protected by the Federal Confidentiality of Alcohol and Drug Abuse Patient Records regulations: The Federal rules restrict any use of the information to criminally investigate or prosecute any alcohol or drug abuse patient.[facility] TownshipIn the event this information is protected by the Federal Confidentiality of Alcohol and Drug Abuse Patient Records regulations: The Federal rules restrict any use of the information to criminally investigate or prosecute any alcohol or drug abuse patient.[facility] TownshipIn the event this information is protected by the Federal Confidentiality of Alcohol and Drug Abuse Patient Records regulations: The Federal rules restrict any use of the information to criminally investigate or prosecute any alcohol or drug abuse patient.[facility] TownshipIn the event this information is protected by the Federal Confidentiality of Alcohol and Drug Abuse Patient Records regulations: The Federal rules restrict any use of the information to criminally investigate or prosecute any alcohol or drug abuse patient.[facility] TownshipIn the event this information is protected by the Federal Confidentiality of Alcohol and Drug Abuse Patient Records regulations: The Federal rules restrict any use of the information to criminally investigate or prosecute any alcohol or drug abuse patient.[facility] TownshipIn the event this information is protected by the Federal Confidentiality of Alcohol and Drug Abuse Patient Records regulations: The Federal rules restrict any use of the information to criminally investigate or prosecute any alcohol or drug abuse patient.[facility] TownshipIn the event this information is protected by the Federal Confidentiality of Alcohol and Drug Abuse Patient Records regulations: The Federal rules restrict any use of the information to criminally investigate or prosecute any alcohol or drug abuse patient.[facility] TownshipIn the event this information is protected by the Federal Confidentiality of Alcohol and Drug Abuse Patient Records regulations: The Federal rules restrict any use of the information to criminally investigate or prosecute any alcohol or drug abuse patient.[facility] TownshipIn the event this information is protected by the Federal Confidentiality of Alcohol and Drug Abuse Patient Records regulations: The Federal rules restrict any use of the information to criminally investigate or prosecute any alcohol or drug abuse patient.[facility] TownshipIn the event this information is protected by the Federal Confidentiality of Alcohol and Drug Abuse Patient Records regulations: The Federal rules restrict any use of the information to criminally investigate or prosecute any alcohol or drug abuse patient.[facility] TownshipIn the event this information is protected by the Federal Confidentiality of Alcohol and Drug Abuse Patient Records regulations: The Federal rules restrict any use of the information to criminally investigate or prosecute any alcohol or drug abuse patient.[facility] TownshipIn the event this information is protected by the Federal Confidentiality of Alcohol and Drug Abuse Patient Records regulations: The Federal rules restrict any use of the information to criminally investigate or prosecute any alcohol or drug abuse patient.[facility] TownshipIn the event this information is protected by the Federal Confidentiality of Alcohol and Drug Abuse Patient Records regulations: The Federal rules restrict any use of the information to criminally investigate or prosecute any alcohol or drug abuse patient.[facility] TownshipIn the event this information is protected by the Federal Confidentiality of Alcohol and Drug Abuse Patient Records regulations: The Federal rules restrict any use of the information to criminally investigate or prosecute any alcohol or drug abuse patient.[facility] TownshipIn the event this information is protected by the Federal Confidentiality of Alcohol and Drug Abuse Patient Records regulations: The Federal rules restrict any use of the information to criminally investigate or prosecute any alcohol or drug abuse patient.[facility] TownshipIn the event this information is protected by the Federal Confidentiality of Alcohol and Drug Abuse Patient Records regulations: The Federal rules restrict any use of the information to criminally investigate or prosecute any alcohol or drug abuse patient.[facility] TownshipIn the event this information is protected by the Federal Confidentiality of Alcohol and Drug Abuse Patient Records regulations: The Federal rules restrict any use of the information to criminally investigate or prosecute any alcohol or drug abuse patient.[facility] TownshipIn the event this information is protected by the Federal Confidentiality of Alcohol and Drug Abuse Patient Records regulations: The Federal rules restrict any use of the information to criminally investigate or prosecute any alcohol or drug abuse patient.[facility] TownshipIn the event this information is protected by the Federal Confidentiality of Alcohol and Drug Abuse Patient Records regulations: The Federal rules restrict any use of the information to criminally investigate or prosecute any alcohol or drug abuse patient.[facility] TownshipIn the event this information is protected by the Federal Confidentiality of Alcohol and Drug Abuse Patient Records regulations: The Federal rules restrict any use of the information to criminally investigate or prosecute any alcohol or drug abuse patient.[facility] TownshipIn the event this information is protected by the Federal Confidentiality of Alcohol and Drug Abuse Patient Records regulations: The Federal rules restrict any use of the information to criminally investigate or prosecute any alcohol or drug abuse patient.[facility] TownshipIn the event this information is protected by the Federal Confidentiality of Alcohol and Drug Abuse Patient Records regulations: The Federal rules restrict any use of the information to criminally investigate or prosecute any alcohol or drug abuse patient.[facility] TownshipIn the event this information is protected by the Federal Confidentiality of Alcohol and Drug Abuse Patient Records regulations: The Federal rules restrict any use of the information to criminally investigate or prosecute any alcohol or drug abuse patient.[facility] TownshipIn the event this information is protected by the Federal Confidentiality of Alcohol and Drug Abuse Patient Records regulations: The Federal rules restrict any use of the information to criminally investigate or prosecute any alcohol or drug abuse patient.[facility] TownshipIn the event this information is protected by the Federal Confidentiality of Alcohol and Drug Abuse Patient Records regulations: The Federal rules restrict any use of the information to criminally investigate or prosecute any alcohol or drug abuse patient.[facility] TownshipIn the event this information is protected by the Federal Confidentiality of Alcohol and Drug Abuse Patient Records regulations: The Federal rules restrict any use of the information to criminally investigate or prosecute any alcohol or drug abuse patient.[facility] TownshipIn the event this information is protected by the Federal Confidentiality of Alcohol and Drug Abuse Patient Records regulations: The Federal rules restrict any use of the information to criminally investigate or prosecute any alcohol or drug abuse patient.[facility] TownshipIn the event this information is protected by the Federal Confidentiality of Alcohol and Drug Abuse Patient Records regulations: The Federal rules restrict any use of the information to criminally investigate or prosecute any alcohol or drug abuse patient.[facility] TownshipIn the event this information is protected by the Federal Confidentiality of Alcohol and Drug Abuse Patient Records regulations: The Federal rules restrict any use of the information to criminally investigate or prosecute any alcohol or drug abuse patient.[facility] TownshipIn the event this information is protected by the Federal Confidentiality of Alcohol and Drug Abuse Patient Records regulations: The Federal rules restrict any use of the information to criminally investigate or prosecute any alcohol or drug abuse patient.[facility] TownshipIn the event this information is protected by the Federal Confidentiality of Alcohol and Drug Abuse Patient Records regulations: The Federal rules restrict any use of the information to criminally investigate or prosecute any alcohol or drug abuse patient.[facility] TownshipIn the event this information is protected by the Federal Confidentiality of Alcohol and Drug Abuse Patient Records regulations: The Federal rules restrict any use of the information to criminally investigate or prosecute any alcohol or drug abuse patient.[facility] TownshipIn the event this information is protected by the Federal Confidentiality of Alcohol and Drug Abuse Patient Records regulations: The Federal rules restrict any use of the information to criminally investigate or prosecute any alcohol or drug abuse patient.[facility] TownshipIn the event this information is protected by the Federal Confidentiality of Alcohol and Drug Abuse Patient Records regulations: The Federal rules restrict any use of the information to criminally investigate or prosecute any alcohol or drug abuse patient.[facility] TownshipIn the event this information is protected by the Federal Confidentiality of Alcohol and Drug Abuse Patient Records regulations: The Federal rules restrict any use of the information to criminally investigate or prosecute any alcohol or drug abuse patient.[facility] TownshipIn the event this information is protected by the Federal Confidentiality of Alcohol and Drug Abuse Patient Records regulations: The Federal rules restrict any use of the information to criminally investigate or prosecute any alcohol or drug abuse patient.[facility] TownshipIn the event this information is protected by the Federal Confidentiality of Alcohol and Drug Abuse Patient Records regulations: The Federal rules restrict any use of the information to criminally investigate or prosecute any alcohol or drug abuse patient.[facility] TownshipIn the event this information is protected by the Federal Confidentiality of Alcohol and Drug Abuse Patient Records regulations: The Federal rules restrict any use of the information to criminally investigate or prosecute any alcohol or drug abuse patient.[facility] TownshipIn the event this information is protected by the Federal Confidentiality of Alcohol and Drug Abuse Patient Records regulations: The Federal rules restrict any use of the information to criminally investigate or prosecute any alcohol or drug abuse patient.[facility] TownshipIn the event this information is protected by the Federal Confidentiality of Alcohol and Drug Abuse Patient Records regulations: The Federal rules restrict any use of the information to criminally investigate or prosecute any alcohol or drug abuse patient.[facility] TownshipIn the event this information is protected by the Federal Confidentiality of Alcohol and Drug Abuse Patient Records regulations: The Federal rules restrict any use of the information to criminally investigate or prosecute any alcohol or drug abuse patient.[facility] TownshipIn the event this information is protected by the Federal Confidentiality of Alcohol and Drug Abuse Patient Records regulations: The Federal rules restrict any use of the information to criminally investigate or prosecute any alcohol or drug abuse patient.[facility] TownshipIn the event this information is protected by the Federal Confidentiality of Alcohol and Drug Abuse Patient Records regulations: The Federal rules restrict any use of the information to criminally investigate or prosecute any alcohol or drug abuse patient.[facility] TownshipIn the event this information is protected by the Federal Confidentiality of Alcohol and Drug Abuse Patient Records regulations: The Federal rules restrict any use of the information to criminally investigate or prosecute any alcohol or drug abuse patient.[facility] TownshipIn the event this information is protected by the Federal Confidentiality of Alcohol and Drug Abuse Patient Records regulations: The Federal rules restrict any use of the information to criminally investigate or prosecute any alcohol or drug abuse patient.[facility] TownshipIn the event this information is protected by the Federal Confidentiality of Alcohol and Drug Abuse Patient Records regulations: The Federal rules restrict any use of the information to criminally investigate or prosecute any alcohol or drug abuse patient.[facility] TownshipIn the event this information is protected by the Federal Confidentiality of Alcohol and Drug Abuse Patient Records regulations: The Federal rules restrict any use of the information to criminally investigate or prosecute any alcohol or drug abuse patient.[facility] TownshipIn the event this information is protected by the Federal Confidentiality of Alcohol and Drug Abuse Patient Records regulations: The Federal rules restrict any use of the information to criminally investigate or prosecute any alcohol or drug abuse patient.[facility] TownshipIn the event this information is protected by the Federal Confidentiality of Alcohol and Drug Abuse Patient Records regulations: The Federal rules restrict any use of the information to criminally investigate or prosecute any alcohol or drug abuse patient.[facility] TownshipIn the event this information is protected by the Federal Confidentiality of Alcohol and Drug Abuse Patient Records regulations: The Federal rules restrict any use of the information to criminally investigate or prosecute any alcohol or drug abuse patient.[facility] TownshipIn the event this information is protected by the Federal Confidentiality of Alcohol and Drug Abuse Patient Records regulations: The Federal rules restrict any use of the information to criminally investigate or prosecute any alcohol or drug abuse patient.[facility] TownshipIn the event this information is protected by the Federal Confidentiality of Alcohol and Drug Abuse Patient Records regulations: The Federal rules restrict any use of the information to criminally investigate or prosecute any alcohol or drug abuse patient.[facility] TownshipIn the event this information is protected by the Federal Confidentiality of Alcohol and Drug Abuse Patient Records regulations: The Federal rules restrict any use of the information to criminally investigate or prosecute any alcohol or drug abuse patient.[facility] TownshipIn the event this information is protected by the Federal Confidentiality of Alcohol and Drug Abuse Patient Records regulations: The Federal rules restrict any use of the information to criminally investigate or prosecute any alcohol or drug abuse patient.[facility] TownshipIn the event this information is protected by the Federal Confidentiality of Alcohol and Drug Abuse Patient Records regulations: The Federal rules restrict any use of the information to criminally investigate or prosecute any alcohol or drug abuse patient.[facility] TownshipIn the event this information is protected by the Federal Confidentiality of Alcohol and Drug Abuse Patient Records regulations: The Federal rules restrict any use of the information to criminally investigate or prosecute any alcohol or drug abuse patient.[facility] TownshipIn the event this information is protected by the Federal Confidentiality of Alcohol and Drug Abuse Patient Records regulations: The Federal rules restrict any use of the information to criminally investigate or prosecute any alcohol or drug abuse patient.[facility] TownshipIn the event this information is protected by the Federal Confidentiality of Alcohol and Drug Abuse Patient Records regulations: The Federal rules restrict any use of the information to criminally investigate or prosecute any alcohol or drug abuse patient.[facility] TownshipIn the event this information is protected by the Federal Confidentiality of Alcohol and Drug Abuse Patient Records regulations: The Federal rules restrict any use of the information to criminally investigate or prosecute any alcohol or drug abuse patient.[facility] TownshipIn the event this information is protected by the Federal Confidentiality of Alcohol and Drug Abuse Patient Records regulations: The Federal rules restrict any use of the information to criminally investigate or prosecute any alcohol or drug abuse patient.[facility] TownshipIn the event this information is protected by the Federal Confidentiality of Alcohol and Drug Abuse Patient Records regulations: The Federal rules restrict any use of the information to criminally investigate or prosecute any alcohol or drug abuse patient.[facility] TownshipIn the event this information is protected by the Federal Confidentiality of Alcohol and Drug Abuse Patient Records regulations: The Federal rules restrict any use of the information to criminally investigate or prosecute any alcohol or drug abuse patient.[facility] TownshipIn the event this information is protected by the Federal Confidentiality of Alcohol and Drug Abuse Patient Records regulations: The Federal rules restrict any use of the information to criminally investigate or prosecute any alcohol or drug abuse patient.[facility] TownshipIn the event this information is protected by the Federal Confidentiality of Alcohol and Drug Abuse Patient Records regulations: The Federal rules restrict any use of the information to criminally investigate or prosecute any alcohol or drug abuse patient.[facility] TownshipIn the event this information is protected by the Federal Confidentiality of Alcohol and Drug Abuse Patient Records regulations: The Federal rules restrict any use of the information to criminally investigate or prosecute any alcohol or drug abuse patient.[facility] TownshipIn the event this information is protected by the Federal Confidentiality of Alcohol and Drug Abuse Patient Records regulations: The Federal rules restrict any use of the information to criminally investigate or prosecute any alcohol or drug abuse patient.[facility] TownshipIn the event this information is protected by the Federal Confidentiality of Alcohol and Drug Abuse Patient Records regulations: The Federal rules restrict any use of the information to criminally investigate or prosecute any alcohol or drug abuse patient.[facility] TownshipIn the event this information is protected by the Federal Confidentiality of Alcohol and Drug Abuse Patient Records regulations: The Federal rules restrict any use of the information to criminally investigate or prosecute any alcohol or drug abuse patient.[facility] TownshipIn the event this information is protected by the Federal Confidentiality of Alcohol and Drug Abuse Patient Records regulations: The Federal rules restrict any use of the information to criminally investigate or prosecute any alcohol or drug abuse patient.[facility] TownshipIn the event this information is protected by the Federal Confidentiality of Alcohol and Drug Abuse Patient Records regulations: The Federal rules restrict any use of the information to criminally investigate or prosecute any alcohol or drug abuse patient.[facility] TownshipIn the event this information is protected by the Federal Confidentiality of Alcohol and Drug Abuse Patient Records regulations: The Federal rules restrict any use of the information to criminally investigate or prosecute any alcohol or drug abuse patient.[facility] TownshipIn the event this information is protected by the Federal Confidentiality of Alcohol and Drug Abuse Patient Records regulations: The Federal rules restrict any use of the information to criminally investigate or prosecute any alcohol or drug abuse patient.[facility] TownshipIn the event this information is protected by the Federal Confidentiality of Alcohol and Drug Abuse Patient Records regulations: The Federal rules restrict any use of the information to criminally investigate or prosecute any alcohol or drug abuse patient.[facility] TownshipIn the event this information is protected by the Federal Confidentiality of Alcohol and Drug Abuse Patient Records regulations: The Federal rules restrict any use of the information to criminally investigate or prosecute any alcohol or drug abuse patient.[facility] TownshipIn the event this information is protected by the Federal Confidentiality of Alcohol and Drug Abuse Patient Records regulations: The Federal rules restrict any use of the information to criminally investigate or prosecute any alcohol or drug abuse patient.[facility] TownshipIn the event this information is protected by the Federal Confidentiality of Alcohol and Drug Abuse Patient Records regulations: The Federal rules restrict any use of the information to criminally investigate or prosecute any alcohol or drug abuse patient.[facility] TownshipIn the event this information is protected by the Federal Confidentiality of Alcohol and Drug Abuse Patient Records regulations: The Federal rules restrict any use of the information to criminally investigate or prosecute any alcohol or drug abuse patient.[facility] TownshipIn the event this information is protected by the Federal Confidentiality of Alcohol and Drug Abuse Patient Records regulations: The Federal rules restrict any use of the information to criminally investigate or prosecute any alcohol or drug abuse patient.[facility] TownshipIn the event this information is protected by the Federal Confidentiality of Alcohol and Drug Abuse Patient Records regulations: The Federal rules restrict any use of the information to criminally investigate or prosecute any alcohol or drug abuse patient.[facility] TownshipIn the event this information is protected by the Federal Confidentiality of Alcohol and Drug Abuse Patient Records regulations: The Federal rules restrict any use of the information to criminally investigate or prosecute any alcohol or drug abuse patient.[facility] TownshipIn the event this information is protected by the Federal Confidentiality of Alcohol and Drug Abuse Patient Records regulations: The Federal rules restrict any use of the information to criminally investigate or prosecute any alcohol or drug abuse patient.[facility] TownshipIn the event this information is protected by the Federal Confidentiality of Alcohol and Drug Abuse Patient Records regulations: The Federal rules restrict any use of the information to criminally investigate or prosecute any alcohol or drug abuse patient.[facility] TownshipIn the event this information is protected by the Federal Confidentiality of Alcohol and Drug Abuse Patient Records regulations: The Federal rules restrict any use of the information to criminally investigate or prosecute any alcohol or drug abuse patient.[facility] TownshipIn the event this information is protected by the Federal Confidentiality of Alcohol and Drug Abuse Patient Records regulations: The Federal rules restrict any use of the information to criminally investigate or prosecute any alcohol or drug abuse patient.[facility] TownshipIn the event this information is protected by the Federal Confidentiality of Alcohol and Drug Abuse Patient Records regulations: The Federal rules restrict any use of the information to criminally investigate or prosecute any alcohol or drug abuse patient.[facility] TownshipIn the event this information is protected by the Federal Confidentiality of Alcohol and Drug Abuse Patient Records regulations: The Federal rules restrict any use of the information to criminally investigate or prosecute any alcohol or drug abuse patient.[facility] TownshipIn the event this information is protected by the Federal Confidentiality of Alcohol and Drug Abuse Patient Records regulations: The Federal rules restrict any use of the information to criminally investigate or prosecute any alcohol or drug abuse patient.[facility] TownshipIn the event this information is protected by the Federal Confidentiality of Alcohol and Drug Abuse Patient Records regulations: The Federal rules restrict any use of the information to criminally investigate or prosecute any alcohol or drug abuse patient.[facility] TownshipIn the event this information is protected by the Federal Confidentiality of Alcohol and Drug Abuse Patient Records regulations: The Federal rules restrict any use of the information to criminally investigate or prosecute any alcohol or drug abuse patient.[facility] TownshipIn the event this information is protected by the Federal Confidentiality of Alcohol and Drug Abuse Patient Records regulations: The Federal rules restrict any use of the information to criminally investigate or prosecute any alcohol or drug abuse patient.[facility] TownshipIn the event this information is protected by the Federal Confidentiality of Alcohol and Drug Abuse Patient Records regulations: The Federal rules restrict any use of the information to criminally investigate or prosecute any alcohol or drug abuse patient.[facility] TownshipIn the event this information is protected by the Federal Confidentiality of Alcohol and Drug Abuse Patient Records regulations: The Federal rules restrict any use of the information to criminally investigate or prosecute any alcohol or drug abuse patient.[facility] TownshipIn the event this information is protected by the Federal Confidentiality of Alcohol and Drug Abuse Patient Records regulations: The Federal rules restrict any use of the information to criminally investigate or prosecute any alcohol or drug abuse patient.[facility] TownshipIn the event this information is protected by the Federal Confidentiality of Alcohol and Drug Abuse Patient Records regulations: The Federal rules restrict any use of the information to criminally investigate or prosecute any alcohol or drug abuse patient.[facility] TownshipIn the event this information is protected by the Federal Confidentiality of Alcohol and Drug Abuse Patient Records regulations: The Federal rules restrict any use of the information to criminally investigate or prosecute any alcohol or drug abuse patient.[facility] TownshipIn the event this information is protected by the Federal Confidentiality of Alcohol and Drug Abuse Patient Records regulations: The Federal rules restrict any use of the information to criminally investigate or prosecute any alcohol or drug abuse patient.[facility] TownshipIn the event this information is protected by the Federal Confidentiality of Alcohol and Drug Abuse Patient Records regulations: The Federal rules restrict any use of the information to criminally investigate or prosecute any alcohol or drug abuse patient.[facility] TownshipIn the event this information is protected by the Federal Confidentiality of Alcohol and Drug Abuse Patient Records regulations: The Federal rules restrict any use of the information to criminally investigate or prosecute any alcohol or drug abuse patient.[facility] TownshipIn the event this information is protected by the Federal Confidentiality of Alcohol and Drug Abuse Patient Records regulations: The Federal rules restrict any use of the information to criminally investigate or prosecute any alcohol or drug abuse patient.[facility] TownshipIn the event this information is protected by the Federal Confidentiality of Alcohol and Drug Abuse Patient Records regulations: The Federal rules restrict any use of the information to criminally investigate or prosecute any alcohol or drug abuse patient.[facility] TownshipIn the event this information is protected by the Federal Confidentiality of Alcohol and Drug Abuse Patient Records regulations: The Federal rules restrict any use of the information to criminally investigate or prosecute any alcohol or drug abuse patient.[facility] TownshipIn the event this information is protected by the Federal Confidentiality of Alcohol and Drug Abuse Patient Records regulations: The Federal rules restrict any use of the information to criminally investigate or prosecute any alcohol or drug abuse patient.[facility] TownshipIn the event this information is protected by the Federal Confidentiality of Alcohol and Drug Abuse Patient Records regulations: The Federal rules restrict any use of the information to criminally investigate or prosecute any alcohol or drug abuse patient.[facility] TownshipIn the event this information is protected by the Federal Confidentiality of Alcohol and Drug Abuse Patient Records regulations: The Federal rules restrict any use of the information to criminally investigate or prosecute any alcohol or drug abuse patient.[facility] TownshipIn the event this information is protected by the Federal Confidentiality of Alcohol and Drug Abuse Patient Records regulations: The Federal rules restrict any use of the information to criminally investigate or prosecute any alcohol or drug abuse patient.[facility] TownshipIn the event this information is protected by the Federal Confidentiality of Alcohol and Drug Abuse Patient Records regulations: The Federal rules restrict any use of the information to criminally investigate or prosecute any alcohol or drug abuse patient.[facility] TownshipIn the event this information is protected by the Federal Confidentiality of Alcohol and Drug Abuse Patient Records regulations: The Federal rules restrict any use of the information to criminally investigate or prosecute any alcohol or drug abuse patient.[facility] TownshipIn the event this information is protected by the Federal Confidentiality of Alcohol and Drug Abuse Patient Records regulations: The Federal rules restrict any use of the information to criminally investigate or prosecute any alcohol or drug abuse patient.[facility] TownshipIn the event this information is protected by the Federal Confidentiality of Alcohol and Drug Abuse Patient Records regulations: The Federal rules restrict any use of the information to criminally investigate or prosecute any alcohol or drug abuse patient.[facility] TownshipIn the event this information is protected by the Federal Confidentiality of Alcohol and Drug Abuse Patient Records regulations: The Federal rules restrict any use of the information to criminally investigate or prosecute any alcohol or drug abuse patient.[facility] TownshipIn the event this information is protected by the Federal Confidentiality of Alcohol and Drug Abuse Patient Records regulations: The Federal rules restrict any use of the information to criminally investigate or prosecute any alcohol or drug abuse patient.[facility] TownshipIn the event this information is protected by the Federal Confidentiality of Alcohol and Drug Abuse Patient Records regulations: The Federal rules restrict any use of the information to criminally investigate or prosecute any alcohol or drug abuse patient.[facility] TownshipIn the event this information is protected by the Federal Confidentiality of Alcohol and Drug Abuse Patient Records regulations: The Federal rules restrict any use of the information to criminally investigate or prosecute any alcohol or drug abuse patient.[facility] TownshipIn the event this information is protected by the Federal Confidentiality of Alcohol and Drug Abuse Patient Records regulations: The Federal rules restrict any use of the information to criminally investigate or prosecute any alcohol or drug abuse patient.[facility] TownshipIn the event this information is protected by the Federal Confidentiality of Alcohol and Drug Abuse Patient Records regulations: The Federal rules restrict any use of the information to criminally investigate or prosecute any alcohol or drug abuse patient.[facility] TownshipIn the event this information is protected by the Federal Confidentiality of Alcohol and Drug Abuse Patient Records regulations: The Federal rules restrict any use of the information to criminally investigate or prosecute any alcohol or drug abuse patient.[facility] TownshipIn the event this information is protected by the Federal Confidentiality of Alcohol and Drug Abuse Patient Records regulations: The Federal rules restrict any use of the information to criminally investigate or prosecute any alcohol or drug abuse patient.[facility] TownshipIn the event this information is protected by the Federal Confidentiality of Alcohol and Drug Abuse Patient Records regulations: The Federal rules restrict any use of the information to criminally investigate or prosecute any alcohol or drug abuse patient.[facility] TownshipIn the event this information is protected by the Federal Confidentiality of Alcohol and Drug Abuse Patient Records regulations: The Federal rules restrict any use of the information to criminally investigate or prosecute any alcohol or drug abuse patient.[facility] TownshipIn the event this information is protected by the Federal Confidentiality of Alcohol and Drug Abuse Patient Records regulations: The Federal rules restrict any use of the information to criminally investigate or prosecute any alcohol or drug abuse patient.[facility] TownshipIn the event this information is protected by the Federal Confidentiality of Alcohol and Drug Abuse Patient Records regulations: The Federal rules restrict any use of the information to criminally investigate or prosecute any alcohol or drug abuse patient.[facility] TownshipIn the event this information is protected by the Federal Confidentiality of Alcohol and Drug Abuse Patient Records regulations: The Federal rules restrict any use of the information to criminally investigate or prosecute any alcohol or drug abuse patient.[facility] TownshipIn the event this information is protected by the Federal Confidentiality of Alcohol and Drug Abuse Patient Records regulations: The Federal rules restrict any use of the information to criminally investigate or prosecute any alcohol or drug abuse patient.[facility] TownshipIn the event this information is protected by the Federal Confidentiality of Alcohol and Drug Abuse Patient Records regulations: The Federal rules restrict any use of the information to criminally investigate or prosecute any alcohol or drug abuse patient.[facility] TownshipIn the event this information is protected by the Federal Confidentiality of Alcohol and Drug Abuse Patient Records regulations: The Federal rules restrict any use of the information to criminally investigate or prosecute any alcohol or drug abuse patient.[facility] TownshipIn the event this information is protected by the Federal Confidentiality of Alcohol and Drug Abuse Patient Records regulations: The Federal rules restrict any use of the information to criminally investigate or prosecute any alcohol or drug abuse patient.[facility] TownshipIn the event this information is protected by the Federal Confidentiality of Alcohol and Drug Abuse Patient Records regulations: The Federal rules restrict any use of the information to criminally investigate or prosecute any alcohol or drug abuse patient.[facility] TownshipIn the event this information is protected by the Federal Confidentiality of Alcohol and Drug Abuse Patient Records regulations: The Federal rules restrict any use of the information to criminally investigate or prosecute any alcohol or drug abuse patient.[facility] TownshipIn the event this information is protected by the Federal Confidentiality of Alcohol and Drug Abuse Patient Records regulations: The Federal rules restrict any use of the information to criminally investigate or prosecute any alcohol or drug abuse patient.[facility] TownshipIn the event this information is protected by the Federal Confidentiality of Alcohol and Drug Abuse Patient Records regulations: The Federal rules restrict any use of the information to criminally investigate or prosecute any alcohol or drug abuse patient.[facility] TownshipIn the event this information is protected by the Federal Confidentiality of Alcohol and Drug Abuse Patient Records regulations: The Federal rules restrict any use of the information to criminally investigate or prosecute any alcohol or drug abuse patient.[facility] TownshipIn the event this information is protected by the Federal Confidentiality of Alcohol and Drug Abuse Patient Records regulations: The Federal rules restrict any use of the information to criminally investigate or prosecute any alcohol or drug abuse patient.[facility] Reason for Visit (unrecogniz ed section and content) Reason Comments Diabetes Reason Onset Date Comments Refill Request 12/27/2021 Reason Onset Date Comments Refill Request 12/27/2021 Reason Onset Date Comments Refill Request 12/30/2021 Reason Comments Recheck 3 month follow up Reason Comments Droopy Right Upper Lid Reason Comments Insurance Authorization Reason Comments Ptosis Right Eye Reason Comments left foot little toe laceration happened today at 5:30 am Reason Onset Date Comments Refill Request 03/11/2022 Reason Comments Prescription Refills Reason Comments Lab Orders Reason Comments Refill Request Reason Comments Order for Oxygen Reason Onset Date Comments Refill Request 05/12/2022 Reason Comments Follow Up Reason Comments Droopy Right Upper Lid Reason Onset Date Comments Refill Request 06/09/2022 Reason Onset Date Comments Refill Request 06/14/2022 Reason Comments Type 2 diabetes Blood sugar: 250A1c: 10.4 Reason Comments Myasthenia Gravis Specialty Diagnoses / Procedures Referred By Contac t Referred To Contact Neurology Diagnoses Myasthenia gravis (HCC) Procedures CONSULT TO NEUROLOGY OFFICE/OUTPATIENT [facility]3] 60-74 MINUTES Sarina Adams MD [address] [place] [address] Referral ID Status Reason Start Date Expiration Date V isits Requested Visits Authorized [id number] Closed PCP Requested Referral 05/26/2022 05/26/2023 1 1 Reason Onset Date Comments Refill Request 07/10/[address] Specialty Diagnoses / Procedures Referred By Contac t Referred To Contact CT IMAGING Diagnoses Malignant neoplasm of thymus (HCC) Procedures CT CHEST WO IVCON DIAGNOSTIC COMPUTED TOMOGRAPHY THORAX W/O CNTRST Monty Douglas MD [address] [place] [address] Ct Imaging Referral ID Status Reason Start Date Expiration Date V isits Requested Visits Authorized [id number] Closed Auto-Generate d Referral 07/08/2022 09/06/2022 1 1 Reason Comments Established Patient 3 month follow up Covid Follow Up Reason Comments F/U 3 Month Reason Onset Date Comments Refill Request 08/03/2022 Reason Onset Date Comments Refill Request 08/14/2022 Reason Onset Date Comments Refill Request 08/13/2022 Reason Comments Medication Problem Reason Comments Follow Up Medication causing f requent bathroom needs, and is affecting her blood sugar. 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) Myasthenia gravis (HCC) Procedures CONSULT TO UROLOGY OFFICE/OUTPATIENT [facility] 60-74 MINUTES Denise Alvarado APRN.[employer] ASS[employer]ANCE PRACTICE MANAGER [address] [place] [address] Referral ID Status Reason Start Date Expiration Date V isits Requested Visits Authorized [id number] Closed PCP Requested Referral 08/24/2022 08/24/2023 1 1 Reason Comments Recheck 3 month follow up Reason Comments Nocturnal oximetry Reason Comments Follow Up Follow up Diabetes Specialty Diagnoses / Procedures Referred By Contac t Referred To Contact Endocrinology Diagnoses Hypothyroidism (acquired) Procedures CONSULT TO ENDOCRINOLOGY OFFICE/OUTPATIENT [facility]3] 60-74 MINUTES Radha Warner MD [address] [place] [address] Referral ID Status Reason Start Date Expiration Date V isits Requested Visits Authorized [id number] Closed PCP Requested Referral 06/02/2022 06/02/2023 1 1 Reason Comments Trulicity problem Shortage at pharmaci Reason Comments Appointment Reason Comments Established Patient Post covid Reason Onset Date Comments Refill Request 11/10/2022 Reason Comments Prior auth needed and rx backordered Reason Comments Diabetes Blood sugar: 298A1C: 11.0 Reason Comments F/U 3 Month Reason Onset Date Comments Refill Request 12/18/2022 needs gabapentin 600 mg rx Reason Onset Date Comments Refill Request 12/25/2022 Reason Comments Patient Update Reason Comments Recheck noted swelling in lo wer legs Reason Comments Results Safe Expert - Other Reason Comments Patient Question Reason Comments Consult Reason Onset Date Comments Refill Request 01/27/2023 Reason Onset Date Comments Refill Request 02/07/2023 Reason Onset Date Comments Refill Request 02/13/2023 Reason Onset Date Comments Refill Request 02/16/2023 Reason Onset Date Comments Refill Request 02/15/2023 Reason Onset Date Comments Refill Request 03/04/2023 Reason Onset Date Comments Refill Request 03/09/2023 Reason Onset Date Comments Refill Request 03/24/2023 Reason Comments Established Patient Reason Comments Spirometry Specialty Diagnoses / Procedures Referred By Contac t Referred [facility] Diagnoses Post-COVID chronic dyspnea Chronic hypoxemic respiratory failure (HCC) Procedures OXIMETRY WITH AMBULATION NONINVASIVE EAR/PULSE OXIMETRY MULTIPLE Brooke Henry PA-C [address] [place] [address] [address] Referral ID Status Reason Start Date Expiration Date V isits Requested Visits Authorized [id number] Closed Auto-Generate d Referral 01/26/2023 10/03/2023 1 1 Reason Onset Date Comments Refill Request 04/19/2023 Reason Onset Date Comments Refill Request 04/21/2023 Reason Onset Date Comments Refill Request 04/29/2023 Reason Onset Date Comments Refill Request 05/11/2023 Reason Comments Results Reason Comments Edema bilateral legs Reason Onset Date Comments Refill Request 05/22/2023 Reason Comments Follow Up Reason Onset Date Comments Refill Request 06/22/2023 Reason Comments New Patient Low Back Pain Reason Comments Follow Up Reason Onset Date Comments Refill Request 07/24/2023 Reason Comments Med Change Request Reason Comments Red Eye Right Eye Reason Onset Date Comments Refill Request 09/14/2023 Reason Onset Date Comments Refill Request 09/11/2023 Reason Onset Date Comments Refill Request 11/07/2023 Reason Comments Follow up Reason Onset Date Comments Refill Request 11/14/2023 Reason Onset Date Comments Refill Request 11/14/2023 Reason Comments Established Patient Follow-Up Reason Onset Date Comments Refill Request 12/06/2023 Specialty Diagnoses / Procedures Referred By Contac t Referred To [facility] [place] Diagnoses Post-COVID chronic dyspnea Procedures OXIMETRY WITH AMBULATION NONINVASIVE EAR/PULSE OXIMETRY MULTIPLE Brooke Henry PA-C [address] [place] [address] [address] Referral ID Status Reason Start Date Expiration Date V isits Requested Visits Authorized [id number] Closed Auto-Generate d Referral 12/01/2023 12/30/2024 1 1 Specialty Diagnoses / Procedures Referred By Contac t Referred To Contact [facility] Diagnoses Post-COVID chronic dyspnea Procedures LUNG DIFFUSION CAPACITY (DLCO) DIFFUSING CAPACITY Brooke Be PA-C [address] [place] [address] [address] Referral ID Status Reason Start Date Expiration Date V isits Requested Visits Authorized [id number] Closed Auto-Generate d Referral 12/01/2023 12/30/2024 1 1 Specialty Diagnoses / Procedures Referred By Contac t Referred To Contact [facility] Diagnoses Post-COVID chronic dyspnea Procedures SPIROMETRY WITH DILATOR IF OBSTRUCTED BRNCDILAT RSPSE SPMTRY PRE&POST-BRNCDILAT ADMN Brooke Be PA-C [address] [place] [address] [place] [address] Referral ID Status Reason Start Date Expiration Date V isits Requested Visits Authorized [id number] Closed Auto-Generate d Referral 12/01/2023 12/30/2024 1 1 Reason Onset Date Comments Refill Request 01/06/2024 Reason Onset Date Comments Refill Request 01/09/[address] Specialty Diagnoses / Procedures Referred By Contac t Referred To Contact CT IMAGING Diagnoses Encounter for screening for lung cancer Former smoker Procedures CT LUNG SCREEN WO IVCON COMPUTED TOMOGRAPHY THORAX LW DOSE LNG CA SCR Alysha- Kay Paredes, SHRIMP PACKER.ADVISORY SOFTWARE ENGINEER [address] [place] [address] Ct Imaging [facility] Referral ID Status Reason Start Date Expiration Date V isits Requested Visits Authorized [id number] Closed Auto-Generate d Referral 02/02/2024 03/20/2024 1 1 Reason Onset Date Comments Refill Request 02/07/2024 Reason Comments Medication Question Reason Comments 2 month follow up Abdominal Pain lower mid for about 1 week question UTI Reason Comments Appointment Primary Care Pharmac y Reason Comments Medication Problem Needs sliding scale directions Reason Comments Erroneous encounter-disregard Reason Comments Established Patient 3 month follow up Reason Onset Date Comments Refill Request 03/08/2024 Reason Comments Missed Appointment Reason Onset Date Comments Refill Request 04/10/2024 Reason Comments Medication Request Reason Onset Date Comments Refill Request 04/11/2024 Reason Comments Okay to follow Home Health PT/OT Reason Comments [facility], verbal order requesting delay of care Reason Comments Physical Therapy Plan of Care Reason Onset Date Comments Refill Request 05/12/2024 Specialty Diagnoses / Procedures Referred By Contac t Referred To Contact [facility] Diagnoses Chronic hypoxemic respiratory failure (HCC) Post-COVID chronic dyspnea Procedures OXIMETRY WITH AMBULATION NONINVASIVE EAR/PULSE OXIMETRY MULTIPLE Brooke Henry PAJenniferC [address] [place] [address] Respiratory [place] [address] [place] [address] Referral ID Status Reason Start Date Expiration Date V isits Requested Visits Authorized [id number] Closed Auto-Generate d Referral 05/19/2023 06/17/2024 1 1 Reason Comments Follow Up med refills, fall fo llow up from 05/02/24 Reason Comments OT plan of care Reason Comments Orders Reason Onset Date Comments Refill Request 06/06/2024 Reason Comments Hospital F/U Reason Onset Date Comments Refill Request 06/08/2024 Reason Onset Date Comments Refill Request 06/12/2024 Medication Problem 06/12/2024 Problem with insurance Reason Comments Medication Question Reason Comments Recheck of lab results and l eft shoulder injury from a fallPatient states that the HCTZ is currently on hold due to low blood pressure causing the fall Reason Comments Results Appointment Reason Comments [facility] OT update POC Reason Comments Rx refill; not on current med list Reason Comments New Pain Referred by Cole Bower Specialty Diagnoses / Procedures Referred By Contac t Referred To Contact Orthopedics Diagnoses Injury of left rotator cuff, subsequent encounter Procedures CONSULT TO ORTHOPAEDICS OFFICE/OUTPATIENT NEW HIGH MDM 60 MINUTES Cole Bower APRN.ADVISORY SOFTWARE ENGINEER [address] [place] [address] Referral ID Status Reason Start Date Expiration Date V isits Requested Visits Authorized [id number] Closed PCP Requested Referral 05/16/2024 05/16/2025 1 1 Reason Onset Date Comments Refill Request 07/19/2024 Reason Onset Date Comments Home Care 08/01/2024 Reason Onset Date Comments Refill Request 08/11/2024 Reason Onset Date Comments Refill Request 09/08/2024 Reason Onset Date Comments Refill Request 09/13/2024 Reason Comments Follow Up c/o CP x 2 days, ach ey pain scale 3/10 Reason Onset Date Comments Refill Request 10/19/2024 Reason Comments swelling/future apt Reason Comments ER F/U [facility] October 2024 Reason Comments Established Patient Post Covid chronic d yspnea Reason Onset Date Comments Diabetes 11/24/2024 Reason Comments Insurance Authorization [employer] Reason Onset Date Comments Refill Request 12/11/2024 Reason Onset Date Comments Refill Request 12/14/2024 Reason Onset Date Comments Refill Request 12/25/2024 Specialty Diagnoses / Procedures Referred By Contac t Referred To Contact [facility] Diagnoses Post-COVID chronic dyspnea Former smoker Procedures LUNG DIFFUSION CAPACITY (DLCO) DIFFUSING CAPACITY Brooke Be PA-C [address] [place] [address] Phone: tel: fax: Respiratory [address] [address] Referral ID Status Reason Start Date Expiration Date V isits Requested Visits Authorized [id number] Closed Auto-Generate d Referral 12/06/2024 01/05/2026 1 1 Specialty Diagnoses / Procedures Referred By Contac t Referred To Contact [facility] [place] Diagnoses Post-COVID chronic dyspnea Former smoker Procedures LUNG VOLUMES Brooke Be PA-C [address] [place] [address] Phone: tel: fax: Respiratory [address] [address] Referral ID Status Reason Start Date Expiration Date V isits Requested Visits Authorized [id number] Closed Auto-Generate d Referral 12/07/2024 10/03/2025 1 1 Specialty Diagnoses / Procedures Referred By Contac t Referred To Contact [facility] Diagnoses Post-COVID chronic dyspnea Former smoker Procedures SPIROMETRY WITH DILATOR IF OBSTRUCTED BRNCDILAT RSPSE SPMTRY PRE&POST-BRNCDILAT ADMN [place] Brooke M, PA-C [address] [place] [address] Phone: tel: fax: Res[facility] [place] [address] [place] [address] Referral ID Status Reason Start Date Expiration Date V isits Requested Visits Authorized [id number] Closed Auto-Generate d Referral 12/06/2024 01/05/2026 1 1 Reason Onset Date Comments Refill Request 01/07/2025 Reason Onset Date Comments Refill Request 01/07/2025 Reason Onset Date Comments Refill Request 01/19/2025 Reason Onset Date Comments Refill Request 02/05/2025 Reason Onset Date Comments Refill Request 02/08/2025 Reason Comments Medication Problem [facility] ne[facility] d all sent to [facility] Diabetes Reason Onset Date Comments Refill Request 03/07/2025 Reason Comments Recheck did complain of righ t sided chest pain that started on her way into the office. Describes it as a sore feeling. Reason Onset Date Comments Outpatient Colonoscopy 03/26/2025 Patient i s overdue for colorectal cancer screening. (has never done). Patient will need consult with Myles Jackson CNP prior to colorectal cancer screening. Reason Onset Date Comments Refill Request 04/05/2025 Reason Onset Date Comments Refill Request 04/09/2025 Reason Onset Date Comments Refill Request 04/09/2025 Reason Onset Date Comments Refill Request 05/02/2025 Reason Onset Date Comments Refill Request 05/07/2025 Reason Onset Date Comments Refill Request 05/21/2025 Reason Onset Date Comments Refill Request 06/11/2025 Reason Onset Date Comments Refill Request 06/07/2025 Care Teams (unrecognized sec tion and content) 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 Relationship Specialty Start Date End Date Sarina Adams MD [address] [place], [place] [id number] PCP - General Internal Medicine 06/18/15 Beata Mendoza RPh [address] [place], [place] [address] Pharmacist Pharmacy 07/11/19 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 Relationship Specialty Start Date End Date Sarina Adams MD [address] [facility] [place] [address] PCP - General Internal Medicine 06/18/15 Beata Mendoza, [facility] [address] [facility] [place] [address] Pharmacist Pharmacy 07/11/19 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 Relationship Specialty Start Date End Date Sarina Adams MD [address] [facility] [place] [address] PCP - General Internal Medicine 06/18/15 Beata Mendoza, [facility] [address] [facility] [place] [address] Pharmacist Pharmacy 07/11/19 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 Relationship Specialty Start Date End Date Sarina Adams MD [address] [facility] [place] [address] PCP - General Internal Medicine 06/18/15 Beata Mendoza, [facility] [address] [facility] [place] [address] Pharmacist Pharmacy 07/11/19 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 Relationship Specialty Start Date End Date Sarina Adams MD [address] [facility] [place] [address] PCP - General Internal Medicine 06/18/15 Beata Mendoza, [facility] [address] [facility] [place] [address] Pharmacist Pharmacy 07/11/19 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 Relationship Specialty Start Date End Date Sarina Adams MD [address] [facility] [place] [address] PCP - General Internal Medicine 06/18/15 Beata Mendoza, [facility] [address] [facility] [place] [address] Pharmacist Pharmacy 07/11/19 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 Relationship Specialty Start Date End Date Sarina Adams MD [address] [facility] [place] [address] PCP - General Internal Medicine 06/18/15 Beata Mendoza, [facility] [address] [facility] [place] [address] Pharmacist Pharmacy 07/11/19 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 Relationship Specialty Start Date End Date Sarina Adams MD [address] [facility] [place] [address] PCP - General Internal Medicine 06/18/15 Beata Mendoza, [facility] [address] [facility] [place] [address] Pharmacist Pharmacy 07/11/19 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 Relationship Specialty Start Date End Date Sarina Adams MD [address] [facility] [place] [address] PCP - General Internal Medicine 06/18/15 Beata Mendoza, [facility] [address] [facility] [place] [address] Pharmacist Pharmacy 07/11/19 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 Relationship Specialty Start Date End Date Sarina Adams MD [address] [facility] [place] [address] PCP - General Internal Medicine 06/18/15 Beata Mendoza, [facility] [address] [facility] [place] [address] Pharmacist Pharmacy 07/11/19 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 Relationship Specialty Start Date End Date Sarina Adams MD [address] [facility] [place] [address] PCP - General Internal Medicine 06/18/15 [facility] [address] [facility] [place] [address] Pharmacist Pharmacy 07/11/19 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 Relationship Specialty Start Date End Date Sarina Adams MD [address] [facility] [place] [address] PCP - General Internal Medicine 06/18/15 [facility] [address] [facility] [place] [address] Pharmacist Pharmacy 07/11/19 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 Relationship Specialty Start Date End Date Sarina Adams MD [address] [facility] [place] [address] PCP - General Internal Medicine 06/18/15 [facility] [address] [facility] [place] [address] Pharmacist Pharmacy 07/11/19 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 Relationship Specialty Start Date End Date Sarina Adams MD [address] [facility] [place] [address] PCP - General Internal Medicine 06/18/15 [facility] [address] [facility] [place] [address] Pharmacist Pharmacy 07/11/19 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 Relationship Specialty Start Date End Date Sarina Adams MD [address] [facility] [place] [address] PCP - General Internal Medicine 06/18/15 [facility] [address] [facility] [place] [address] Pharmacist Pharmacy 07/11/19 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 Relationship Specialty Start Date End Date Sarina Adams MD [address] [facility] [place] [address] PCP - General Internal Medicine 06/18/15 Beata Mednoza, [facility] [address] [facility] [place] [address] Pharmacist Pharmacy 07/11/19 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 Relationship Specialty Start Date End Date Sarina Adams MD [address] [facility] [place] [address] PCP - General Internal Medicine 06/18/15 Beata Mendoza, [facility] [address] [facility] [place] [address] Pharmacist Pharmacy 07/11/19 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 Relationship Specialty Start Date End Date Sarina Adams MD [address] [facility] [place] [address] PCP - General Internal Medicine 06/18/15 Beata Mendoza, [facility] [address] [facility] [place] [address] Pharmacist Pharmacy 07/11/19 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 Relationship Specialty Start Date End Date Sarina Adams MD [address] [facility] [place] [address] PCP - General Internal Medicine 06/18/15 Evangelistaminh Beata, [facility] [address] [facility] [place] [address] Pharmacist Pharmacy 07/11/19 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 Relationship Specialty Start Date End Date Sarina Adams MD [address] [facility] [place] [address] PCP - General Internal Medicine 06/18/15 Beata Mendoza, [facility] [address] [facility] [place] [address] Pharmacist Pharmacy 07/11/19 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 Relationship Specialty Start Date End Date Sarina Adams MD [address] [facility] [place] [address] PCP - General Internal Medicine 06/18/15 Beata Mendoza, [facility] [address] [facility] [place] [address] Pharmacist Pharmacy 07/11/19 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 Relationship Specialty Start Date End Date Sarina Adams MD [address] [facility] [place] [address] PCP - General Internal Medicine 06/18/15 Beata Mendoza, [facility] [address] [facility] [place] [address] Pharmacist Pharmacy 07/11/19 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 Relationship Specialty Start Date End Date Sarina Adams MD [address] [facility] [place] [address] PCP - General Internal Medicine 06/18/15 Beata Mendoza, [facility] [address] [facility] [place] [address] Pharmacist Pharmacy 07/11/19 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 Relationship Specialty Start Date End Date Sarina Adams MD [address] [facility] [place] [address] PCP - General Internal Medicine 06/18/15 Beata Mendoza, [facility] [address] [facility] [place] [address] Pharmacist Pharmacy 07/11/19 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 Relationship Specialty Start Date End Date Sarina Adams MD [address] [facility] [place] [address] PCP - General Internal Medicine 06/18/15 Beata Mednoza, [facility] [address] [facility] [place] [address] Pharmacist Pharmacy 07/11/19 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 Relationship Specialty Start Date End Date Sarina Adams MD [address] [facility] [place] [address] PCP - General Internal Medicine 06/18/15 Beata Mendoza, [facility] [address] [facility] [place] [address] Pharmacist Pharmacy 07/11/19 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 Relationship Specialty Start Date End Date Sarina Admas MD [address] [facility] [place] [address] PCP - General Internal Medicine 06/18/15 Beata Mendoza, [facility] [address] [facility] [place] [address] Pharmacist Pharmacy 07/11/19 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 Relationship Specialty Start Date End Date Sarina Adams MD [address] [facility] [place] [address] PCP - General Internal Medicine 06/18/15 Beata Mendoza, [facility] [address] [facility] [place] [address] Pharmacist Pharmacy 07/11/19 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 Relationship Specialty Start Date End Date Sarina Adams MD [address] [facility] [place] [address] PCP - General Internal Medicine 06/18/15 Beata Mendoza, [facility] [address] [facility] [place] [address] Pharmacist Pharmacy 07/11/19 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 Relationship Specialty Start Date End Date Sarina Adams MD [address] [facility] [place] [address] PCP - General Internal Medicine 06/18/15 Beata Mendoza, [facility] [address] [facility] [place] [address] Pharmacist Pharmacy 07/11/19 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 Relationship Specialty Start Date End Date Sarina Adams MD [address] [facility] [place] [address] PCP - General Internal Medicine 06/18/15 Beata Mendoza, [facility] [address] [facility] [address] Pharmacist Pharmacy 07/11/19 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 Relationship Specialty Start Date End Date Sarina Adams MD [address] [facility] [place] [address] PCP - General Internal Medicine 06/18/15 Beata Mendoza, [facility] [address] [facility] [place] [address] Pharmacist Pharmacy 07/11/19 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 Relationship Specialty Start Date End Date Sarina Adams MD [address] [facility] [place] [address] PCP - General Internal Medicine 06/18/15 Beata Mendoza, [facility] [address] [facility] [place] [address] Pharmacist Pharmacy 07/11/19 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 Relationship Specialty Start Date End Date Sarina Adams MD [address] [facility] [place] [address] PCP - General Internal Medicine 06/18/15 Beata Mendoza, [facility] [address] [facility] [address] Pharmacist Pharmacy 07/11/19 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 Relationship Specialty Start Date End Date Sarina Adams MD [address] [facility] [place] [address] PCP - General Internal Medicine 06/18/15 Beata Mendoza, [facility] [address] [facility] [place] [address] Pharmacist Pharmacy 07/11/19 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 Relationship Specialty Start Date End Date Sarina Adams MD [address] [facility] [place] [address] PCP - General Internal Medicine 06/18/15 Beata Mendoza, [facility] [address] [facility] [place] [address] Pharmacist Pharmacy 07/11/19 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 Relationship Specialty Start Date End Date Sarina Adams MD [address] [facility] [place] [address] PCP - General Internal Medicine 06/18/15 Beata Mendoza, [facility] [address] [facility] [place] [address] Pharmacist Pharmacy 07/11/19 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 Relationship Specialty Start Date End Date Sarina Adams MD [address] [facility] [place] [address] PCP - General Internal Medicine 06/18/15 Beata Mendoza, [facility] [address] [facility] [place] [address] Pharmacist Pharmacy 07/11/19 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 Relationship Specialty Start Date End Date Sarina Adams MD [address] [facility] [place] [address] PCP - General Internal Medicine 06/18/15 eBata Mendoza, [facility] [address] [facility] [place] [address] Pharmacist Pharmacy 07/11/19 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 Relationship Specialty Start Date End Date Sarina Adams MD [address] [facility] [place] [address] PCP - General Internal Medicine 06/18/15 [facility], [facility] [address] [facility] [place] [address] Pharmacist Pharmacy 07/11/19 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 Relationship Specialty Start Date End Date Sarina Adams MD [address] [facility] [place] [address] PCP - General Internal Medicine 06/18/15 [facility] [address] [facility] [place] [address] Pharmacist Pharmacy 07/11/19 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 Relationship Specialty Start Date End Date Sarina Adams MD [address] [facility] [place] [address] PCP - General Internal Medicine 06/18/15 [facility] [address] [facility] [place] [address] Pharmacist Pharmacy 07/11/19 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 Relationship Specialty Start Date End Date Sarina Adams MD [address] [facility] [place] [address] PCP - General Internal Medicine 06/18/15 [facility], [facility] [address] [facility] [place] [address] Pharmacist Pharmacy 07/11/19 Team Status: Active Member Role Status Dates Dr. Sarina Adams MD Family Provider Active Dr. Sarina Adams MD Primary Care Provider Active Team Status: Inactive Member Role Status Dates Dr. Sarina Adams MD Primary Care Provider Active Dr. Steven Trent DO Attending Provider, Emergency Provider Active Team Status: Inactive Member Role Status Dates Dr. Sarina Adams MD Primary Care Provider Active Dr. Tavo Son DO Emergency Provider Active 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 Relationship Specialty Start Date End Date Sarina Adams MD [address] [facility] [place] [address] PCP - General Internal Medicine 06/18/15 EvangelistaBeata, [facility] [address] [facility] [address] Pharmacist Pharmacy 07/11/19 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 Relationship Specialty Start Date End Date Sarina Adams MD [address] [facility] [address] PCP - General Internal Medicine 06/18/15 [facility] [address] [facility] [place] [address] Pharmacist Pharmacy 07/11/19 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 Relationship Specialty Start Date End Date Sarina Adams MD [address] [facility] [place] [address] PCP - General Internal Medicine 06/18/15 EvangelistaBeata, [facility] [address] [facility] [place] [address] Pharmacist Pharmacy 07/11/19 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 Relationship Specialty Start Date End Date Sarina Adams MD [address] [facility] [place] [address] PCP - General Internal Medicine 06/18/15 [facility] [address] [facility] [place] [address] Pharmacist Pharmacy 07/11/19 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 Relationship Specialty Start Date End Date Sarina Adams MD [address] [facility] [place] [address] PCP - General Internal Medicine 06/18/15 EvangelistaBeata, [facility] [address] [facility] [place] [address] Pharmacist Pharmacy 07/11/19 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 Relationship Specialty Start Date End Date Sarina Adams MD [address] [facility] [place] [address] PCP - General Internal Medicine 06/18/15 Beata Mendoza, [facility] [address] [facility] [address] Pharmacist Pharmacy 07/11/19 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 Relationship Specialty Start Date End Date Sarina Adams MD [address] [facility] [place] [address] PCP - General Internal Medicine 06/18/15 Beata Mendoza, [facility] [address] [facility] [place] [address] Pharmacist Pharmacy 07/11/19 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 Relationship Specialty Start Date End Date Sarina Adams MD [address] [facility] [place] [address] PCP - General Internal Medicine 06/18/15 Beata Mendoza, [facility] [address] [facility] [place] [address] Pharmacist Pharmacy 07/11/19 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 Relationship Specialty Start Date End Date Sarina Adams MD [address] [facility] [place] [address] PCP - General Internal Medicine 06/18/15 Beata Mendoza, [facility] [address] [facility] [place] [place] [address] Pharmacist Pharmacy 07/11/19 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 Relationship Specialty Start Date End Date Sarina Adams MD [address] [facility] [place] [address] PCP - General Internal Medicine 06/18/15 Beata Mendoza, [facility] [address] [facility] [place] [address] Pharmacist Pharmacy 07/11/19 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 Relationship Specialty Start Date End Date Sarina Adams MD [address] [facility] [place] [address] PCP - General Internal Medicine 06/18/15 Beata Mendoza, [facility] [address] [facility] [place] [address] Pharmacist Pharmacy 07/11/19 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 Relationship Specialty Start Date End Date Sarina Adams MD [address] [facility] [place] [address] PCP - General Internal Medicine 06/18/15 Beata Mendoza, [facility] [address] [facility] [place] [address] Pharmacist Pharmacy 07/11/19 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 Relationship Specialty Start Date End Date Sarina Adams MD [address] [facility] [place] [address] PCP - General Internal Medicine 06/18/15 Beata Mendoza, [facility] [address] [facility] [place] [address] Pharmacist Pharmacy 07/11/19 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 Relationship Specialty Start Date End Date Sarina Adams MD [address] [facility] [place] [address] PCP - General Internal Medicine 06/18/15 [facility] [address] [facility] [place] [address] Pharmacist Pharmacy 07/11/19 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 Relationship Specialty Start Date End Date Sarina Adams MD [address] [facility] [place] [address] PCP - General Internal Medicine 06/18/15 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 Relationship Specialty Start Date End Date Sarina Adams MD [address] [facility] [place] [address] PCP - General Internal Medicine 06/18/15 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 Relationship Specialty Start Date End Date Sarina Adams MD [address] [facility] [place] [address] PCP - General Internal Medicine 06/18/15 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 Relationship Specialty Start Date End Date Sarina Adams MD [address] [facility] [place] [address] PCP - General Internal Medicine 06/18/15 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 Relationship Specialty Start Date End Date Sarina Adams MD [address] [facility] [place] [address] PCP - General Internal Medicine 06/18/15 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 Relationship Specialty Start Date End Date Sarina Adams MD [address] [facility] [place] [address] PCP - General Internal Medicine 06/18/15 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 Relationship Specialty Start Date End Date Sarina Adams MD [address] [facility] [place] [address] PCP - General Internal Medicine 06/18/15 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 Relationship Specialty Start Date End Date Sarina Adams MD [address] [place] [address] PCP - General Internal Medicine 06/18/15 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 Relationship Specialty Start Date End Date Sarina Adams MD [address] [place] [address] PCP - General Internal Medicine 06/18/15 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 Relationship Specialty Start Date End Date Sarina Adams MD [address] [place] [address] PCP - General Internal Medicine 06/18/15 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 Relationship Specialty Start Date End Date Sarina Adams MD [address] [place] [address] PCP - General Internal Medicine 06/18/15 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 Relationship Specialty Start Date End Date Sarina Adams MD [address] [place] [address] PCP - General Internal Medicine 06/18/15 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 Relationship Specialty Start Date End Date Sarina Adams MD [address] [place] [address] PCP - General Internal Medicine 06/18/15 Beata Mendoza [facility] [address] [place] [address] Pharmacist Pharmacy 07/11/19 05/27/23 Team Status: Inactive Member Role Status Dates Dr. Sarina Adams MD Primary Care Provider Active Dr. Vikram Hicks MD Emergency Provider Active 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 Relationship Specialty Start Date End Date Sarina Adams MD [address] [facility] [place] [address] PCP - General Internal Medicine 06/18/15 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 Relationship Specialty Start Date End Date Sarina Adams MD [address] [facility] [place] [address] PCP - General Internal Medicine 06/18/15 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 Relationship Specialty Start Date End Date Sarina Adams MD [address] [facility] [place] [address] PCP - General Internal Medicine 06/18/15 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 Relationship Specialty Start Date End Date Sarina Adams MD [address] [facility] [place] [address] PCP - General Internal Medicine 06/18/15 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 Relationship Specialty Start Date End Date Sarina Adams MD [address] [facility] [place] [address] PCP - General Internal Medicine 06/18/15 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 Relationship Specialty Start Date End Date Sarina Adams MD [address] [facility] [place] [address] PCP - General Internal Medicine 06/18/15 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 Relationship Specialty Start Date End Date Sarina Adams MD [address] [facility] [place] [address] PCP - General Internal Medicine 06/18/15 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 Relationship Specialty Start Date End Date Sarina Adams MD [address] [facility] [place] [address] PCP - General Internal Medicine 06/18/15 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 Relationship Specialty Start Date End Date Sarina Adams MD [address] [place] [address] PCP - General Internal Medicine 06/18/15 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 Relationship Specialty Start Date End Date Sarina Adams MD [address] [place] [address] PCP - General Internal Medicine 06/18/15 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 Relationship Specialty Start Date End Date Sarina Adams MD [address] [place] [address] PCP - General Internal Medicine 06/18/15 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 Relationship Specialty Start Date End Date Sarina Adams MD [address] [place] [address] PCP - General Internal Medicine 06/18/15 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 Relationship Specialty Start Date End Date Sarina Adams MD [address] [facility] [place] [address] PCP - General Internal Medicine 06/18/15 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 Relationship Specialty Start Date End Date Sarina Adams MD [address] [facility] [place] [address] PCP - General Internal Medicine 06/18/15 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 Relationship Specialty Start Date End Date Sarina Adams MD [address] [place] [address] PCP - General Internal Medicine 06/18/15 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 Relationship Specialty Start Date End Date Sarina Adams MD [address] [place] [address] PCP - General Internal Medicine 06/18/15 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 Relationship Specialty Start Date End Date Sarina Adams MD [address] [facility] [place] [address] PCP - General Internal Medicine 06/18/15 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 Relationship Specialty Start Date End Date Sarina Adams MD [address] [facility] [place] [address] PCP - General Internal Medicine 06/18/15 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 Relationship Specialty Start Date End Date Sarina Adams MD [address] [facility] [place] [address] PCP - General Internal Medicine 06/18/15 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 Relationship Specialty Start Date End Date Sarina Adams MD [address] [facility] [place] [address] PCP - General Internal Medicine 06/18/15 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 Relationship Specialty Start Date End Date Sarina Adams MD [address] [facility] [place] [address] PCP - General Internal Medicine 06/18/15 [facility] [address] [place] [address] Pharmacist Pharmacy 02/24/24 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 Relationship Specialty Start Date End Date Sarina Adams MD [address] [facility] [place] [address] PCP - General Internal Medicine 06/18/15 Carmina Sylvester [facility] [address] [place] [address] Pharmacist Pharmacy 02/24/24 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 Relationship Specialty Start Date End Date Sarina Adams MD [address] [facility] [address] PCP - General Internal Medicine 06/18/15 [facility] [address] [facility] [place] [address] Pharmacist Pharmacy 02/24/24 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 Relationship Specialty Start Date End Date Sarina Adams MD [address] [place] [address] PCP - General Internal Medicine 06/18/15 [facility] [address] [facility] [place] [address] Pharmacist Pharmacy 02/24/24 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 Relationship Specialty Start Date End Date Sarina Adams MD [address] [facility] [place] [address] PCP - General Internal Medicine 06/18/15 [facility] [address] [facility] [place] [address] Pharmacist Pharmacy 02/24/24 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 Relationship Specialty Start Date End Date Sarina Adams MD [address] [facility] [place] [address] PCP - General Internal Medicine 06/18/15 [facility] [address] [facility] [place] [address] Pharmacist Pharmacy 02/24/24 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 Relationship Specialty Start Date End Date Sarina Adams MD [address] [place] [address] PCP - General Internal Medicine 06/18/15 [facility] [address] [place] [address] Pharmacist Pharmacy 02/24/24 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 Relationship Specialty Start Date End Date Sarina Adams MD [address] [facility] [address] PCP - General Internal Medicine 06/18/15 [facility] [address] [place] [address] Pharmacist Pharmacy 02/24/24 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 Relationship Specialty Start Date End Date Sarina Adams MD [address] [facility] [place] [address] PCP - General Internal Medicine 06/18/15 [facility] [address] [place] [address] Pharmacist Pharmacy 02/24/24 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 Relationship Specialty Start Date End Date Sarina Adams MD [address] [facility] [place] [address] PCP - General Internal Medicine 06/18/15 [facility] [address] [facility] [place] [address] Pharmacist Pharmacy 02/24/24 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 Relationship Specialty Start Date End Date Sarina Adams MD [address] [facility] [place] [address] PCP - General Internal Medicine 06/18/15 Carmina Sylvester, [facility] [address] [facility] [place] [address] Pharmacist Pharmacy 02/24/24 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 Relationship Specialty Start Date End Date Sarina Adams MD [address] [facility] [place] [address] PCP - General Internal Medicine 06/18/15 Carmina Sylvester, [facility] [address] [facility] [place] [address] Pharmacist Pharmacy 02/24/24 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 Relationship Specialty Start Date End Date Sarina Adams MD [address] [facility] [place] [address] PCP - General Internal Medicine 06/18/15 Carmina Sylvester, [facility] [address] [facility] [place] [address] Pharmacist Pharmacy 02/24/24 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 Relationship Specialty Start Date End Date Sarina Adams MD [address] [facility] [place] [address] PCP - General Internal Medicine 06/18/15 Carmina Sylvester, [facility] [address] [facility] [place] [address] Pharmacist Pharmacy 02/24/24 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 Relationship Specialty Start Date End Date Sarina Adams MD [address] [facility] [place] [address] PCP - General Internal Medicine 06/18/15 [facility] [address] [facility] [place] [address] Pharmacist Pharmacy 02/24/24 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 Relationship Specialty Start Date End Date Sarina Adams MD [address] [facility] [place] [address] PCP - General Internal Medicine 06/18/15 [facility] [address] [facility] [place] [address] Pharmacist Pharmacy 02/24/24 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 Relationship Specialty Start Date End Date Sarina Adams MD [address] [facility] [place] [address] PCP - General Internal Medicine 06/18/15 [facility] [address] [facility] [place] [address] Pharmacist Pharmacy 02/24/24 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 Relationship Specialty Start Date End Date Sarina Adams MD [address] [facility] [place] [address] PCP - General Internal Medicine 06/18/15 [facility] [address] [facility] [place] [address] Pharmacist Pharmacy 02/24/24 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 Relationship Specialty Start Date End Date Sarina Adams MD [address] [facility] [place] [place] [address] PCP - General Internal Medicine 06/18/15 [facility] [address] [facility] [place] [address] Pharmacist Pharmacy 02/24/24 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 Relationship Specialty Start Date End Date Sarina Adams MD [address] [place] [address] PCP - General Internal Medicine 06/18/15 [facility] [address] [place] [address] Pharmacist Pharmacy 02/24/24 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 Relationship Specialty Start Date End Date Sarina Adams MD [address] [place] [address] PCP - General Internal Medicine 06/18/15 [facility] [address] [place] [address] Pharmacist Pharmacy 02/24/24 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 Relationship Specialty Start Date End Date Sarina Adams MD [address] [place] [address] PCP - General Internal Medicine 06/18/15 [facility]taCo[facility] [address] [place] [address] Pharmacist Pharmacy 02/24/24 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 Relationship Specialty Start Date End Date Sarina Adams MD [address] [place] [address] PCP - General Internal Medicine 06/18/15 [facility] [address] [place] [address] Pharmacist Pharmacy 02/24/24 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 Relationship Specialty Start Date End Date Sarina Adams MD [address] [place] [address] PCP - General Internal Medicine 06/18/15 Carmina Sylvester, [facility] [address] [facility] [place] [address] Pharmacist Pharmacy 02/24/24 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 Relationship Specialty Start Date End Date Sarina Adams MD [address] [facility] [place] [address] PCP - General Internal Medicine 06/18/15 Carmina Sylvester, [facility] [address] [facility] [place] [address] Pharmacist Pharmacy 02/24/24 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 Relationship Specialty Start Date End Date Sarina Adams MD [address] [facility] [address] PCP - General Internal Medicine 06/18/15 Carmina Sylvester, [facility] [address] [facility] [place] [address] Pharmacist Pharmacy 02/24/24 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 Relationship Specialty Start Date End Date Sarina Adams MD [address] [facility] [place] [address] PCP - General Internal Medicine 06/18/15 Carmina Sylvester, [facility] [address] [facility] [place] [address] Pharmacist Pharmacy 02/24/24 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 Relationship Specialty Start Date End Date Sarina Adams MD [address] [facility] [place] [place] [address] PCP - General Internal Medicine 06/18/15 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 Relationship Specialty Start Date End Date Sarina Adams MD [address] [facility] [place] [address] PCP - General Internal Medicine 06/18/15 [facility] [address] [facility] [place] [address] Pharmacist Pharmacy 02/24/24 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 Relationship Specialty Start Date End Date Sarina Adams MD [address] [facility] [place] [address] PCP - General Internal Medicine 06/18/15 [facility] [address] [facility] [place] [address] Pharmacist Pharmacy 02/24/24 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 Relationship Specialty Start Date End Date Sarina Adams MD [address] [facility] [place] [address] PCP - General Internal Medicine 06/18/15 [facility] [address] [facility] [place] [address] Pharmacist Pharmacy 02/24/24 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 Relationship Specialty Start Date End Date Sarina Adams MD [address] [facility] [place] [address] PCP - General Internal Medicine 06/18/15 [facility] [address] [facility] [place] [address] Pharmacist Pharmacy 07/11/19 05/27/23 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 Relationship Specialty Start Date End Date Sarina Adams MD [address] [facility] [place] [address] PCP - General Internal Medicine 06/18/15 Carmina Sylvester, [facility] [address] [facility] [place] [address] Pharmacist Pharmacy 02/24/24 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 Relationship Specialty Start Date End Date Sarina Adams MD [address] [facility] [place] [address] PCP - General Internal Medicine 06/18/15 Carmina Sylvester, [facility] [address] [facility] [place] [address] Pharmacist Pharmacy 02/24/24 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 Relationship Specialty Start Date End Date Sarina Adams MD [address] [facility] [place] [address] PCP - General Internal Medicine 06/18/15 [facility] [address] [facility] [place] [address] Pharmacist Pharmacy 02/24/24 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 Relationship Specialty Start Date End Date Sarina Adams MD [address] [facility] [place] [address] PCP - General Internal Medicine 06/18/15 Carmina Sylvester, [facility] [address] [facility] [place] [address] Pharmacist Pharmacy 02/24/24 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 Relationship Specialty Start Date End Date Sarina Adams MD [address] [facility] [place] [place] [address] PCP - General Internal Medicine 06/18/15 Carmina Sylvester, [facility] [address] [place] [address] Pharmacist Pharmacy 02/24/24 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 Relationship Specialty Start Date End Date Sarina Adams MD [address] [facility] [place] [address] PCP - General Internal Medicine 06/18/15 [facility] [address] [place] [address] Pharmacist Pharmacy 02/24/24 Denise Alvarado, SHRIMP PACKER.QUALITY ASSURANCE PRACTICE MANAGER [address] [facility] [place] [address] [employer] Plant Superintendent Internal Medicine 09/11/24 Cole Bower SHRIMP PACKER.ADVISORY SOFTWARE ENGINEER [address] [facility] [address] [employer]fuels Plant Superintendent Internal Medicine 09/11/24 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 Relationship Specialty Start Date End Date Sarina Adams MD [address] [facility] [place] [address] PCP - General Internal Medicine 06/18/15 [facility] [address] [place] [address] Pharmacist Pharmacy 02/24/24 Denise Alvarado, SHRIMP PACKER.QUALITY ASSURANCE PRACTICE MANAGER [address] [facility] [place] [address] [employer]fuels Plant Superintendent Internal Medicine 09/11/24 Cole Bowre SHRIMP PACKER.ADVISORY SOFTWARE ENGINEER [address] [facility] [address] Biofuels Plant Superintendent Internal Medicine 09/11/24 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 Relationship Specialty Start Date End Date Sarina Adams MD [address] [facility] [place] [address] PCP - General Internal Medicine 06/18/15 [facility] [address] [facility] [place] [address] Pharmacist Pharmacy 02/24/24 Denise Alvarado, SHRIMP PACKER.QUALITY ASSURANCE PRACTICE MANAGER [address] [facility] [place] [address] Biofuels Plant Superintendent Internal Medicine 09/11/24 Cole Bower, SHRIMP PACKER.ADVISORY SOFTWARE ENGINEER [address] [facility] [place] [address] Biofuels Plant Superintendent Internal Medicine 09/11/24 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 Relationship Specialty Start Date End Date Sarina Adams MD [address] [facility] [place] [address] PCP - General Internal Medicine 06/18/15 [facility] [address] [facility] [place] [address] Pharmacist Pharmacy 02/24/24 Denise Alvarado, SHRIMP PACKER.QUALITY ASSURANCE PRACTICE MANAGER [address] [facility] [place] [address] Biofuels Plant Superintendent Internal Medicine 09/11/24 Cole Bower SHRIMP PACKER.ADVISORY SOFTWARE ENGINEER [address] [facility] [place] [address] Biofuels Plant Superintendent Internal Medicine 09/11/24 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 Relationship Specialty Start Date End Date Sarina Adams MD [address] [facility] [place] [address] PCP - General Internal Medicine 06/18/15 [facility] [address] [facility] [place] [address] Pharmacist Pharmacy 02/24/24 Denise Alvarado, SHRIMP PACKER.QUALITY ASSURANCE PRACTICE MANAGER [address] [facility] [place] [address] Biofuels Plant Superintendent Internal Medicine 09/11/24 Cole Bower, SHRIMP PACKER.ADVISORY SOFTWARE ENGINEER [address] [place] [address] Biofuels Plant Superintendent Internal Medicine 09/11/24 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 Relationship Specialty Start Date End Date Sarina Adams MD [address] [facility] [place] [address] PCP - General Internal Medicine 06/18/15 [facility] [address] [facility] [place] [address] Pharmacist Pharmacy 02/24/24 Denise Alvarado, SHRIMP PACKER.QUALITY ASSURANCE PRACTICE MANAGER [address] [facility] [place] [address] Biofuels Plant Superintendent Internal Medicine 09/11/24 Cole Bower, SHRIMP PACKER.ADVISORY SOFTWARE ENGINEER [address] [facility] [place] [address] Biofuels Plant Superintendent Internal Medicine 09/11/24 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 Relationship Specialty Start Date End Date Sarina Adams MD [address] [facility] [place] [address] PCP - General Internal Medicine 06/18/15 [facility] [address] [place] [address] Pharmacist Pharmacy 02/24/24 Denise Alvarado, SHRIMP PACKER.QUALITY ASSURANCE PRACTICE MANAGER [address] [place] [address] Biofuels Plant Superintendent Internal Medicine 09/11/24 Cole Bower SHRIMP PACKER.ADVISORY SOFTWARE ENGINEER [address] [place] [address] Biofuels Plant Superintendent Internal Medicine 09/11/24 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 Relationship Specialty Start Date End Date Sarina Adams MD [address] [place] [address] PCP - General Internal Medicine 06/18/15 [facility]iman[facility] [address] [place] [address] Pharmacist Pharmacy 02/24/24 Denise Alvarado, SHRIMP PACKER.QUALITY ASSURANCE PRACTICE MANAGER [address] [place] [address] Biofuels Plant Superintendent Internal Medicine 09/11/24 Cole Bower, SHRIMP PACKER.ADVISORY SOFTWARE ENGINEER [address] [place] [address] Biofuels Plant Superintendent Internal Medicine 09/11/24 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 Relationship Specialty Start Date End Date Sarina Adams MD [address] [place] [address] PCP - General Internal Medicine 06/18/15 [facility] [address] [place] [address] Pharmacist Pharmacy 02/24/24 Denise Alvarado SHRIMP PACKER.QUALITY ASSURANCE PRACTICE MANAGER [address] [facility] [place] [address] Biofuels Plant Superintendent Internal Medicine 09/11/24 Cole Bower APRN.ADVISORY SOFTWARE ENGINEER [address] [facility] [place] [address] Biofuels Plant Superintendent Internal Medicine 09/11/24 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 Relationship Specialty Start Date End Date Sarina Adams MD [address] [facility] [place] [address] PCP - General Internal Medicine 06/18/15 [facility] [address] [place] [address] Pharmacist Pharmacy 02/24/24 Denise Alvarado, SHRIMP PACKER.QUALITY ASSURANCE PRACTICE MANAGER [address] [facility] [place] [address] Biofuels Plant Superintendent Internal Medicine 09/11/24 Cole Bower SHRIMP PACKER.ADVISORY SOFTWARE ENGINEER [address] [facility] [place] [address] Biofuels Plant Superintendent Internal Medicine 09/11/24 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 Relationship Specialty Start Date End Date Sarina Adams MD [address] [facility] [place] [address] PCP - General Internal Medicine 06/18/15 [facility] [address] [place] [address] Pharmacist Pharmacy 02/24/24 Denise Alvarado SHRIMP PACKER.QUALITY ASSURANCE PRACTICE MANAGER [address] [facility] [place] [address] Biofuels Plant Superintendent Internal Medicine 09/11/24 Cole Bower APRN.ADVISORY SOFTWARE ENGINEER [address] [place] [address] Biofuels Plant Superintendent Internal Medicine 09/11/24 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 Relationship Specialty Start Date End Date Sarina Adams MD [address] [place] [address] PCP - General Internal Medicine 06/18/15 [facility] [address] [place] [address] Pharmacist Pharmacy 02/24/24 Denise Alvarado APRN.QUALITY ASSURANCE PRACTICE MANAGER [address] [place] [address] Biofuels Plant Superintendent Internal Medicine 09/11/24 Cole Bower APRN.ADVISORY SOFTWARE ENGINEER [address] [place] [address] Biofuels Plant Superintendent Internal Medicine 09/11/24 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 Relationship Specialty Start Date End Date Sarina Adams MD [address] [place] [address] PCP - General Internal Medicine 06/18/15 [facility] [address] [place] [address] Pharmacist Pharmacy 02/24/24 Denise Alvarado APRN.QUALITY ASSURANCE PRACTICE MANAGER [address] [place] [address] Biofuels Plant Superintendent Internal Medicine 09/11/24 Cole Bower APRN.ADVISORY SOFTWARE ENGINEER [address] [place] [address] Biofuels Plant Superintendent Internal Medicine 09/11/24 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 Relationship Specialty Start Date End Date Sarina Adams MD [address] [place] [address] PCP - General Internal Medicine 06/18/15 [facility] [address] [place] [address] Pharmacist Pharmacy 02/24/24 Denise Alvarado, SHRIMP PACKER.QUALITY ASSURANCE PRACTICE MANAGER [address] [place] [address] Biofuels Plant Superintendent Internal Medicine 09/11/24 Cole Bower SHRIMP PACKER.ADVISORY SOFTWARE ENGINEER [address] [place] [address] Biofuels Plant Superintendent Internal Medicine 09/11/24 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 Relationship Specialty Start Date End Date Sarina Adams MD [address] [place] [address] PCP - General Internal Medicine 06/18/15 [facility] [address] [place] [address] Pharmacist Pharmacy 02/24/24 Denise Alvarado SHRIMP PACKER.QUALITY ASSURANCE PRACTICE MANAGER [address] [place] [address] Biofuels Plant Superintendent Internal Medicine 09/11/24 Cole Bower APRN.ADVISORY SOFTWARE ENGINEER [address] [place] [address] Biofuels Plant Superintendent Internal Medicine 09/11/24 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 Relationship Specialty Start Date End Date Sarina Adams MD [address] [place] [address] PCP - General Internal Medicine 06/18/15 [facility] [address] [place] [address] Pharmacist Pharmacy 02/24/24 Denise Alvarado, SHRIMP PACKER.QUALITY ASSURANCE PRACTICE MANAGER [address] [place] [address] Biofuels Plant Superintendent Internal Medicine 09/11/24 Cole Bower SHRIMP PACKER.ADVISORY SOFTWARE ENGINEER [address] [place] [address] Biofuels Plant Superintendent Internal Medicine 09/11/24 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 Relationship Specialty Start Date End Date Sarina Adams MD [address] [place] [address] PCP - General Internal Medicine 06/18/15 [facility] [address] [place] [address] Pharmacist Pharmacy 02/24/24 Denise Alvarado, SHRIMP PACKER.QUALITY ASSURANCE PRACTICE MANAGER [address] [place] [address] Biofuels Plant Superintendent Internal Medicine 09/11/24 Cole Bower SHRIMP PACKER.ADVISORY SOFTWARE ENGINEER [address] [place] [address] Biofuels Plant Superintendent Internal Medicine 09/11/24 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 Relationship Specialty Start Date End Date Sarina Adams MD [address] [place] [address] PCP - General Internal Medicine 06/18/15 [facility] [address] [place] [address] Pharmacist Pharmacy 02/24/24 Denise Alvarado, SHRIMP PACKER.QUALITY ASSURANCE PRACTICE MANAGER [address] [facility] [address] Biofuels Plant Superintendent Internal Medicine 09/11/24 Cole Bower SHRIMP PACKER.ADVISORY SOFTWARE ENGINEER [address] [facility] [place] [address] Biofuels Plant Superintendent Internal Medicine 09/11/24 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 Relationship Specialty Start Date End Date Sarina Adams MD [address] [facility] [place] [address] PCP - General Internal Medicine 06/18/15 [facility] [address] [facility] [place] [address] Pharmacist Pharmacy 02/24/24 Denise Alvarado, SHRIMP PACKER.QUALITY ASSURANCE PRACTICE MANAGER [address] [facility] [address] Biofuels Plant Superintendent Internal Medicine 09/11/24 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 Relationship Specialty Start Date End Date Sarina Adams MD [address] [facility] [place] [address] PCP - General Internal Medicine 06/18/15 [facility] [address] [facility] [place] [address] Pharmacist Pharmacy 02/24/24 Denise Alvarado, SHRIMP PACKER.QUALITY ASSURANCE PRACTICE MANAGER [address] [place] [address] Biofuels Plant Superintendent Internal Medicine 09/11/24 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 Relationship Specialty Start Date End Date Sarina Adams MD [address] [place] [address] PCP - General Internal Medicine 06/18/15 [facility] [address] [place] [address] Pharmacist Pharmacy 02/24/24 Denise Alvarado APRN.QUALITY ASSURANCE PRACTICE MANAGER [address] [place] [address] Biofuels Plant Superintendent Internal Medicine 09/11/24 Cole Bower APRN.ADVISORY SOFTWARE ENGINEER [address] [place] [address] Biofuels Plant Superintendent Internal Medicine 12/26/24 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 Relationship Specialty Start Date End Date Sarina Adams MD [address] [place] [address] PCP - General Internal Medicine 06/18/15 [facility] [address] [place] [address] Pharmacist Pharmacy 02/24/24 Denise Alvarado SHRIMP PACKER.QUALITY ASSURANCE PRACTICE MANAGER [address] [place] [address] Biofuels Plant Superintendent Internal Medicine 09/11/24 Cole Bower APRN.ADVISORY SOFTWARE ENGINEER [address] [place] [address] Biofuels Plant Superintendent Internal Medicine 12/26/24 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 Relationship Specialty Start Date End Date Sarina Adams MD [address] [place] [address] PCP - General Internal Medicine 06/18/15 [facility] [address] [place] [address] Pharmacist Pharmacy 02/24/24 Denise Alvarado, SHRIMP PACKER.QUALITY ASSURANCE PRACTICE MANAGER [address] [place] [address] Biofuels Plant Superintendent Internal Medicine 09/11/24 Cole Boewr SHRIMP PACKER.ADVISORY SOFTWARE ENGINEER [address] [place] [address] Biofuels Plant Superintendent Internal Medicine 12/26/24 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 Relationship Specialty Start Date End Date Sarina Adams MD [address] [place] [address] PCP - General Internal Medicine 06/18/15 [facility] [address] [place] [address] Pharmacist Pharmacy 02/24/24 Denise Alvarado, SHRIMP PACKER.QUALITY ASSURANCE PRACTICE MANAGER [address] [place] [address] Biofuels Plant Superintendent Internal Medicine 09/11/24 Cole Bower SHRIMP PACKER.ADVISORY SOFTWARE ENGINEER [address] [place] [address] Biofuels Plant Superintendent Internal Medicine 12/26/24 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 Relationship Specialty Start Date End Date Sarina Adams MD [address] [place] [address] PCP - General Internal Medicine 06/18/15 [facility] [address] [place] [address] Pharmacist Pharmacy 02/24/24 Denise Alvarado, SHRIMP PACKER.QUALITY ASSURANCE PRACTICE MANAGER [address] [place] [address] Biofuels Plant Superintendent Internal Medicine 09/11/24 Cole Bower SHRIMP PACKER.ADVISORY SOFTWARE ENGINEER [address] [place] [address] Biofuels Plant Superintendent Internal Medicine 12/26/24 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 Relationship Specialty Start Date End Date Sarina Adams MD [address] [place] [address] PCP - General Internal Medicine 06/18/15 [facility] [address] [place] [address] Pharmacist Pharmacy 02/24/24 Denise Alvarado, SHRIMP PACKER.QUALITY ASSURANCE PRACTICE MANAGER [address] [place] [address] Biofuels Plant Superintendent Internal Medicine 09/11/24 Cole Bower SHRIMP PACKER.ADVISORY SOFTWARE ENGINEER [address] [place] [address] Biofuels Plant Superintendent Internal Medicine 12/26/24 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 Relationship Specialty Start Date End Date Sarina Adams MD [address] [place] [address] PCP - General Internal Medicine 06/18/15 [facility] [address] [place] [address] Pharmacist Pharmacy 02/24/24 Denise Alvarado, ODILON.QUALITY ASSURANCE PRACTICE MANAGER [address] [place] [address] Biofuels Plant Superintendent Internal Medicine 09/11/24 Cole Bower APRN.ADVISORY SOFTWARE ENGINEER [address] [place] [address] Biofuels Plant Superintendent Internal Medicine 09/11/24 12/22/24 Cole Bower APRN.ADVISORY SOFTWARE ENGINEER [address] [place] [address] Biofuels Plant Superintendent Internal Medicine 12/26/24 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 Relationship Specialty Start Date End Date Sarina Adams MD [address] [place] [address] PCP - General Internal Medicine 06/18/15 [facility] [address] [place] [address] Pharmacist Pharmacy 02/24/24 Cole Bower SHRIMP PACKER.ADVISORY SOFTWARE ENGINEER [address] [place] [address] Biofuels Plant Superintendent Internal Medicine 12/26/24 Denise Alvarado SHRIMP PACKER.QUALITY ASSURANCE PRACTICE MANAGER [address] [place] [address] Biofuels Plant Superintendent Internal Medicine 02/21/25 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 Relationship Specialty Start Date End Date Sarina Adams MD [address] [place] [address] PCP - General Internal Medicine 06/18/15 [facility] [address] [place] [address] Pharmacist Pharmacy 02/24/24 Cole Bower, SHRIMP PACKER.ADVISORY SOFTWARE ENGINEER [address] [place] [address] Biofuels Plant Superintendent Internal Medicine 12/26/24 Denise Alvarado, SHRIMP PACKER.QUALITY ASSURANCE PRACTICE MANAGER [address] [place] [address] Biofuels Plant Superintendent Internal Medicine 02/21/25 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 Relationship Specialty Start Date End Date Sarina Adams MD [address] [place] [place] [address] PCP - General Internal Medicine 06/18/15 [facility] [address] [place] [address] Pharmacist Pharmacy 02/24/24 Cole Bower, SHRIMP PACKER.ADVISORY SOFTWARE ENGINEER [address] [place] [address] [employer] Plant Superintendent Internal Medicine 12/26/24 Denise Alvarado, SHRIMP PACKER.QUALITY ASSURANCE PRACTICE MANAGER [address] [place] [address] [employer]fuels Plant Superintendent Internal Medicine 02/21/25 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 Relationship Specialty Start Date End Date Sarina Adams MD [address] [place] [address] PCP - General Internal Medicine 06/18/15 [facility] [address] [place] [address] Pharmacist Pharmacy 02/24/24 Cole Bower APRN.ADVISORY SOFTWARE ENGINEER [address] [place] [address] [employer]fuels Plant Superintendent Internal Medicine 12/26/24 Denise Alvarado APRN.QUALITY ASSURANCE PRACTICE MANAGER [address] [place] [address] [employer] Plant Superintendent Internal Medicine 02/21/25 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 Relationship Specialty Start Date End Date Sarina Adams MD [address] [place] [address] PCP - General Internal Medicine 06/18/15 [facility] [address] [place] [address] Pharmacist Pharmacy 02/24/24 Cole Bower APRN.ADVISORY SOFTWARE ENGINEER [address] [place] [address] [employer]fuels Plant Superintendent Internal Medicine 12/26/24 Denise Alvarado, ODILON.QUALITY ASSURANCE PRACTICE MANAGER [address] [place] [address] [employer]fuels Plant Superintendent Internal Medicine 02/21/25 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 Relationship Specialty Start Date End Date Sarina Adams MD [address] [place] [address] PCP - General Internal Medicine 06/18/15 [facility] [address] [place] [address] Pharmacist Pharmacy 02/24/24 Cole Bower APRN.ADVISORY SOFTWARE ENGINEER [address] [place] [address] [employer]fuels Plant Superintendent Internal Medicine 12/26/24 Denise Alvarado APRN.QUALITY ASSURANCE PRACTICE MANAGER [address] [place] [address] [employer]fuels Plant Superintendent Internal Medicine 02/21/25 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 Relationship Specialty Start Date End Date Sarina Adams MD [address] [place] [address] PCP - General Internal Medicine 06/18/15 [facility] [address] [place] [address] Pharmacist Pharmacy 02/24/24 Cole Bower APRN.ADVISORY SOFTWARE ENGINEER [address] [place] [address] [employer]fuels Plant Superintendent Internal Medicine 12/26/24 Denise Alvarado APRN.QUALITY ASSURANCE PRACTICE MANAGER [address] [place] [address] [employer]fuels Plant Superintendent Internal Medicine 02/21/25 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 Relationship Specialty Start Date End Date Sarina Adams MD [address] [place] [address] PCP - General Internal Medicine 06/18/15 [facility] [address] [place] [address] Pharmacist Pharmacy 02/24/24 Cole Bower APRN.ADVISORY SOFTWARE ENGINEER [address] [place] [address] [employer]fuels Plant Superintendent Internal Medicine 12/26/24 Denise Alvarado, SHRIMP PACKER.QUALITY ASSURANCE PRACTICE MANAGER [address] [place] [address] [employer]fuels Plant Superintendent Internal Medicine 02/21/25 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 Relationship Specialty Start Date End Date Sarina Adams MD [address] [place] [address] PCP - General Internal Medicine 06/18/15 [facility] [address] [place] [address] Pharmacist Pharmacy 02/24/24 Cole Bower APRN.ADVISORY SOFTWARE ENGINEER [address] [place] [address] Biofuels Plant Superintendent Internal Medicine 12/26/24 Denise Alvarado, SHRIMP PACKER.QUALITY ASSURANCE PRACTICE MANAGER [address] [place] [address] [employer]els Plant Superintendent Internal Medicine 02/21/25 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 Relationship Specialty Start Date End Date Sarina Adams MD [address] [place] [address] PCP - General Internal Medicine 06/18/15 [facility] [address] [place] [address] Pharmacist Pharmacy 02/24/24 Cole Bower APRN.ADVISORY SOFTWARE ENGINEER [address] [place] [address] [employer]fuels Plant Superintendent Internal Medicine 12/26/24 Denise Alvarado, SHRIMP PACKER.QUALITY ASSURANCE PRACTICE MANAGER [address] [place] [address] [employer]fuels Plant Superintendent Internal Medicine 02/21/25 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 Relationship Specialty Start Date End Date Sarina Adams MD [address] [place] [address] PCP - General Internal Medicine 06/18/15 [facility] [address] [place] [address] Pharmacist Pharmacy 02/24/24 Cole Bower SHRIMP PACKER.ADVISORY SOFTWARE ENGINEER [address] [place] [address] [employer]fuels Plant Superintendent Internal Medicine 12/26/24 Denise Alvarado, SHRIMP PACKER.QUALITY ASSURANCE PRACTICE MANAGER [address] [place] [address] Biofuels Plant Superintendent Internal Medicine 02/21/25 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 Relationship Specialty Start Date End Date Sarina Adams MD [address] [place] [address] PCP - General Internal Medicine 06/18/15 [facility] [address] [place] [address] Pharmacist Pharmacy 02/24/24 Cole Bower SHRIMP PACKER.ADVISORY SOFTWARE ENGINEER [address] [place] [address] Biofuels Plant Superintendent Internal Medicine 12/26/24 Denise Alvarado, SHRIMP PACKER.QUALITY ASSURANCE PRACTICE MANAGER [address] [place] [address] [employer]fuels Plant Superintendent Internal Medicine 02/21/25 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 Relationship Specialty Start Date End Date Sarina Adams MD [address] [place] [address] PCP - General Internal Medicine 06/18/15 [facility] [address] [place] [address] Pharmacist Pharmacy 02/24/24 Cole Bower SHRIMP PACKER.ADVISORY SOFTWARE ENGINEER [address] [place] [address] [employer]fuels Plant Superintendent Internal Medicine 12/26/24 Denise Alvarado APRN.QUALITY ASSURANCE PRACTICE MANAGER [address] [place] [address] [employer]fuels Plant Superintendent Internal Medicine 02/21/25 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 Relationship Specialty Start Date End Date Sarina Adams MD [address] [place] [address] PCP - General Internal Medicine 06/18/15 [facility] [address] [place] [address] Pharmacist Pharmacy 02/24/24 Cole Bower SHRIMP PACKER.ADVISORY SOFTWARE ENGINEER [address] [place] [address] [employer]fuels Plant Superintendent Internal Medicine 12/26/24 Denise Alvarado APRN.QUALITY ASSURANCE PRACTICE MANAGER [address] [place] [address] [employer]fuels Plant Superintendent Internal Medicine 02/21/25 Team Status: Active Member Role/Relationship Status Dates Dr. Sarina Adams MD Primary care physician Active Team Status: Active Member Role/Relationship Status Dates Dr. Sarina Adams MD Primary care physician Active Start: July 09, 2025 Dr. Niranjan Leblanc DO Emergency Departme nt Physician Active Start: July 09, 2025 Dr. Tavo Nielson DO Admitting physician Active Start: July 09, 2025 Dr. Tavo Nielson DO Attending physician Active Start: July 09, 2025 Team Status: Active Member Role/Relationship Status Dates Dr. Sarina Adams MD Primary care physician Active Start: July 09, 2025 Dr. Niranjan Leblanc DO Emergency Departme nt Physician Active Start: July 09, 2025 Dr. Tavo Nielson DO Admitting physician Active Start: July 09, 2025 Dr. Tavo Nielson DO Attending physician Active Start: July 09, 2025 Dr. Tavo Nielson DO Nurse Practitioner Active Start: July 09, 2025 Team Status: Inactive Member Role/Relationship Status Dates Dr. Sarina Adams MD Primary care physician Active Start: July 09, 2025 End: July 12, 2025 Dr. Niranjan Leblanc DO Emergency Departme nt Physician Active Start: July 09, 2025 End: July 12, 2025 Dr. Tavo Nielson DO Admitting physician Active Start: July 09, 2025 End: July 12, 2025 Dr. Tavo Nielson DO Nurse Practitioner Active Start: July 09, 2025 End: July 12, 2025 Dr. Asya Hernandez MD Attending physician Active Start: July 09, 2025 End: July 12, 2025 Team Status: Active Member Role/Relationship Status Dates Dr. Sarina Adams MD Primary care physician Active Start: July 10, 2025 Dr. Niranjan Leblanc DO Emergency Departme nt Physician Active Start: July 10, 2025 Dr. Tavo Nielson DO Admitting physician Active Start: July 10, 2025 Dr. Tavo Nielson DO Nurse Practitioner Active Start: July 10, 2025 Dr. Asya Hernandez MD Attending physician Active Start: July 10, 2025 Dr. Asya Hernandez MD Nurse Practitioner Active Start: July 10, 2025 Team Status: Active Member Role/Relationship Status Dates Dr. Sarina Adams MD Primary care physician Active Start: July 10, 2025 Dr. Ed Barraza MD Attending physician Active Start: July 10, 2025 Team Status: Active Member Role/Relationship Status Dates Dr. Sarina Adams MD Primary care physician Active Start: July 11, 2025 Dr. Niranjan Leblanc DO Emergency Departme nt Physician Active Start: July 11, 2025 Dr. Tavo Nielson DO Admitting physician Active Start: July 11, 2025 Dr. Tavo Nielson DO Nurse Practitioner Active Start: July 11, 2025 Dr. Asya Hernandez MD Attending physician Active Start: July 11, 2025 Dr. Asya Hernandez MD Nurse Practitioner Active Start: July 11, 2025 Team Status: Active Member Role/Relationship Status Dates Dr. Sarina Adams MD Primary care physician Active Start: July 12, 2025 Dr. Niranjan Leblanc DO Emergency Departme nt Physician Active Start: July 12, 2025 Dr. Tavo Nielson DO Admitting physician Active Start: July 12, 2025 Dr. Tavo Nielson DO Nurse Practitioner Active Start: July 12, 2025 Dr. Asya Hernandez MD Attending physician Active Start: July 12, 2025 Dr. Asya Hernandez MD Nurse Practitioner Active Start: July 12, 2025 Goals (unrecognized section and content) Type Treatment Intervention Code Status: Full Code - Verified FOR RECORDS PERTAINING TO PATIENTS WHO ARE OR HAVE BEEN ENROLLED IN A CHEMICAL DEPENDENCY/SUBSTANCEABUSE PROGRAM, SOME INFORMATION MAY BE OMITTED. This clinical summary was aggregated from multiple sources. Caution should be exercised in using it in the provision of clinical care. This summary normalizes information from multiple sources, and as a consequence, information in this document may materially change the coding, format and clinical context of patient data. In addition, data may be omitted in some cases. CLINICAL DECISIONS SHOULD BE BASED ON THE PRIMARY CLINICAL RECORDS. [employer] provides no warranty or guarantee of the accuracy or completeness of information in this document.
--- OUTSIDE RECORDS SUMMARY | 2025-08-24 23:33 | XMS RPT_ITS | CCD ---
Author Organization [facility] Care Team Providers Care Vp Medical Name Role Phone Sarina Adams MD Primary Care Provider [facility], Keti Unavailable Dr. Sarina Adams Primary Care Provider Dr. Brooke Sainz Emergency Provider Dr. Justine Trent Attending Provider Sarina Adams MD Primary Care Provider [facility], [place]eti Unavailable Sarina Adams MD Primary Care Provider [facility], [place]eti Unavailable JAIDA SOARES Attending Unavailable SARINA ADAMS Referring Unavailable SARINA ADAMS Primary Care Unavailable [facility], [place]eti Unavailable Sarina Adams MD Primary Care Provider [facility], Carmina Unavailable Alvarado DISPATCH SUPERVISOR.FELLING MACHINE OPERATOR, Denise Unavailable Cheli DISPATCH SUPERVISOR.MANAGER APPOINTMENT, Cole Unavailable Cheli DISPATCH SUPERVISOR.MANAGER APPOINTMENT, Cole Unavailable Cheli DISPATCH SUPERVISOR.MANAGER APPOINTMENT, Cole Unavailable Cheli DISPATCH SUPERVISOR.MANAGER APPOINTMENT, Cole Unavailable Alvarado DISPATCH SUPERVISOR.FELLING MACHINE OPERATOR, Denise Unavailable Talampas MD, Dr. Sarina D [...] Unavailable TALAMPAS, SARINA D Primary Care Unavailable BROKOE BE Referring Unavailable ALICJA WALSH Referring Unavailable [...] / oxyCODONE Drug Allergy 05-07-2014 GI Upset [facility] metFORMIN (5 sources) metFORMIN Drug Allergy 09-10-2016 Diarrhea [facility] Work Phone: Opioid Agonists (5 sources) oxyCODONE Drug Allergy 07-07-2021 GI Upset [facility] (20 sources) Acetaminophen / oxyCODONE; Translations: [OXYCODONE-ACETAMI NOPHEN] Drug Allergy 05-07-2014 GI Upset [facility] (20 sources) metFORMIN; Translations: [METFORMIN] Drug Allergy 09-10-2016 Diarrhea [facility] Work Phone: (20 sources) oxyCODONE; Translations: [OXYCODONE] Drug Allergy 07-07-2021 GI Upset [facility] (1 source) metFORMIN Drug Allergy 08-01-2025 [facility] Repository (1 source) oxyCODONE Drug Allergy 08-01-2025 [facility] Repository Medications Current Medications Medication [...] Comment on above: Take 1 capsule by [facility] once daily. dicyclomine hydrochloride 10 mg oral [...] Comment on above: Take 1 capsule by [facility] twice daily for 180 days. Take 1 capsule by [facility] twice daily for 30 days. Take 1 tablet by [facility] twice daily for 90 days. Take 1 tablet by [facility] twice daily for 180 days. Take 1 tablet by [facility] twice daily for 180 days. Do not start before April 25, 2023. Take 1 tablet by [facility] two times a day for 180 [...] ea three times daily for 5 days. [place]-3 Fatty Acids-Vitamin E (3 sources) Start: take 1 capsule by mouth once daily [place]-3 Fatty Acids-Vitamin E Active 1 CAP PO DAILY March 25, 2021 12:00am Start: 03-25-2021 take 1 capsule by [facility] once daily [place]-3 Fatty Acids-Vitamin E Active 1 CAP PO DAILY March 24, 2021 11:00pm omeprazole 40 mg delayed release oral capsule (20 sources) Proton Pump Inhibitor Start: 05-19-2023 End: 05-02-2025 take 1 capsule by mouth once daily Comment on above: Take 1 capsule by [facility] once daily. take 1 capsule by [facility] once daily OXYGEN, HOME THERAPY, (20 sources) [...] on above: Take 1 capsule by mo [facility] twice daily. Take 1 capsule by mo [facility] two times a day. take 1 capsule by mo [facility] twice a day Take 1 capsule by mo [facility] once daily. prednisoLONE acetate 10 mg/ml ophthalmic [...] Comment on above: Take 1 tablet by [facility] daily at bedtime. sulfamethoxazole 800 mg [...] Comment on above: Take 1 tablet by [facility] twice daily for 5 days. tropicamide [...] sources) Start: 03-25-2021 take 1 capsule by [facility] once daily End: 06-28-2023 take 1 capsule by mouth once daily Vitamin E, dl, acetate, (VITAMIN E) 400 unit capsule Take 400 Units by mouth once daily. 0 06/28/2023 Discontinued Comment on above: Take 400 Units by [facility] once daily. Completed/Discontinued Medications Medication Drug Class(es) [...] Comment on above: Take 1 capsule by [facility] twice daily for 5 days. ciprofloxacin 500 [...] on above: Take 1 capsule by mo [facility] once daily. Take 1 tablet by emely [...] Active Comment on above: Take by mouth. [place]-3 Fatty Acids-Vitamin E (FISH OIL) 1,000 mg cap (20 sources) take 1 capsule by mouth twice daily [place]-3 Fatty Acids-Vitamin E (FISH OIL) 1,000 mg cap Take 1 capsule by mouth twice daily. 0 Active Comment on above: Take 1 capsule by mo [facility] twice daily. [place]-3 Fatty Acids-Vitamin E 1,000 mg cap (20 sources) End: 06-28-2023 take 1 capsule by mouth twice daily [place]-3 Fatty Acids-Vitamin E 1,000 mg cap Take 1 capsule by mouth twice daily. 0 06/28/2023 Discontinued take 1 capsule by mouth twice da johan [place]-3 Fatty Acids-Vitamin E 1,000 mg cap Take 1 capsule by mouth twice daily. 0 Active Comment on above: Take 1 capsule by mo [facility] twice daily. [place]-3 Fatty Acids-Vitamin E 1,000 mg Capsule (2 sources) Start: 03-25-20 End: 04-20-20 [place]-3 Fatty Acids-Vitamin E 1,000 mg Capsule Discontinued [...] 10 mL injection (DEFINITY) polyethylene glycol 3350 06325 mg powder for oral solution (1 source) [...] 0.4 mg oral capsule (4 sources) alpha-Adrenergic Mitchlel Start: 05-03-2024 End: 07-09-2025 take 1 capsule [...] 11-28-2024 05-12-2024 Episodic Other aftercare (1 source) [facility] (current) use of insulin; Translations: [Type 2 [...] Test Name Value Interpretation Reference Range Facility [facility] SAMANTHA ROMERO ([id number]) 1965 F Date Time Provider Department 08/13/25 [...] mouth at bedtime as needed. - Insulin Catarina, Disposable, (DROPLET PEN NEEDLE) 31 gauge x [...] monitoring kit (more content not included)... Normal [facility] CNPN Telephone (HCSIND) -------- SAMANTHA ROMERO ([id number]) 1965 F Date Time Provider Department 08/13/25 [...] daily at bedtime. - flash glucose sensor (eCozySTYLE TAYLOR 14 DAY SENSOR) kit Use to [...] mouth at bedtime as needed. - Insulin Catarina, Disposable, (DROPLET PEN NEEDLE) 31 gauge x [...] drug i (more content not included)... Normal [facility] Telephone (HCSIND) -------- SAMANTHA ROMERO ([id number]) 1965 F Date Time Provider Department 08/13/25 [...] mouth at bedtime as needed. - Insulin Catarina, Disposable, (DROPLET PEN NEEDLE) 31 gauge x [...] Que Garcia (more content not included)... Normal [facility] Basic metabolic 2000 panelon 08-09-2025 Anion gap [Moles/Vol] 9 mmol/L Normal 8-15 [facility] Comment on above: Order Comment: Speci men Type: BLOOD SPECIMENOrdering Facility: [facility] Address: [address] [place] [address] Performed By: #### 3 024-7, [facility], 99191-7 ####[facility] LABCLIA [id number] [place] [address] [place] Calcium [Mass/Vol] 8.8 mg/dL Normal 8.5-10.2 [facility] Comment on above: Order Comment: Speci men Type: BLOOD SPECIMENOrdering Facility: [facility] Address: [address] [place] [address] Performed By: #### 3 024-7, [facility], 15757-3 ####[facility] LABCLIA [id number] [place] [address] [place] Chloride [Moles/Vol] 105 mmol/L Normal 98-107 [facility] Comment on above: Order Comment: Speci men Type: BLOOD SPECIMENOrdering Facility: [facility] Address: [address] [place] [address] Performed By: #### 3 024-7, [facility], 01941-3 ####[facility] LABCLIA [id number] [place] [address] [place] CO2 [Moles/Vol] 30 mmol/L Normal 22-30 [facility] Comment on above: Order Comment: Speci men Type: BLOOD SPECIMENOrdering Facility: [facility] Address: [address] [place] [address] Performed By: #### 3 024-7, [facility], 74110-2 ####[facility] LABCLIA [id number] [place] [address] [place] Creatinine [Mass/Vol] 1.49 mg/dL High 0.58-0.96 [facility] Comment on above: Order Comment: Speci men Type: BLOOD SPECIMENOrdering Facility: [facility] Address: [address] [place] [address] Performed By: #### 3 024-7, [facility], 88695-6 ####[facility] LABCLIA [id number] [place] [address] [place] eGFRcr SerPlBld CKD-EPI 2020 40 mL/min/1.73m??? Low >=60 [facility] Comment on above: Order Comment: Speci men Type: BLOOD SPECIMENOrdering Facility: [facility] Address: [address] [place] [address] Result Comment: Angelica mated Glomerular Filtration Rate [...] actual GFR. Performed By: #### 3 024-7, [facility], 73306-8 ####[facility] LABCLIA [id number] [place] [address] [place] Glucose [Mass/Vol] 187 mg/dL High 74-99 [facility] Comment on above: Order Comment: Speci men Type: BLOOD SPECIMENOrdering Facility: [facility] Address: [address] [place] [address] Result Comment: The Citizen [place] Diabetes Association (ADA) provides guidance for cutoff [...] Standards of Medical Care in Diabetes 2016, [place] Diabetes Association. Diabetes Care. 2016.39(Suppl 1). Performed By: #### 3 024-7, [facility], 58872-0 ####[facility] LABCLIA [id number] [place] [address] [place] Potassium [Moles/Vol] 4.2 mmol/L Normal 3.7-5.1 [facility] Comment on above: Order Comment: Katrina men Type: BLOOD SPECIMENOrdering Facility: [facility] Address: [address] [place] [address] Performed By: #### 3 024-7, [facility], 70285-1 ####[facility] LABCLIA [id number] [place] [address] [place] Sodium [Moles/Vol] 144 mmol/L Normal 136-144 [facility] Comment on above: Order Comment: Speci men Type: BLOOD SPECIMENOrdering Facility: [facility] Address: [address] [place] [address] Performed By: #### 3 024-7, [facility], 22485-6 ####[facility] LABCLIA [id number] [place] [address] [place] Urea nitrogen [Mass/Vol] 36 mg/dL High 7-21 [facility] Comment on above: Order Comment: Speci men Type: BLOOD SPECIMENOrdering Facility: [facility] Address: [address] [place] [address] Performed By: #### 3 024-7, [facility], 65424-0 ####[facility] LABCLIA [id number] [address] [place] CNOVon 08-09-2025 CNOV Office Visit (INTMWS ) -------- ANYSAMANTHA Manning ([id number]) 1965 F Date Time Provider Department 08/09/25 2:40 PM DENISE ALVARADO INTMWS During your visit today, we recorded the following information about you: Pulse Respiration Blood pressure 72/minute 16/minute 145/77 Denise Alvarado APRN.FELLING MACHINE OPERATOR 08/09/2025 3:28 PM Signed Subjective Patient ID: Samantha is a 59 year old female who presents for No chief complaint on file.. HPI Samantha Romero for hospital discharge follow-up visit. She was admitted to [facility] July 09 through July 12, 2025 for acute on chronic heart failure with preserved ejection fraction. Discharge diagnoses acute on chronic heart failure with preserved ejection fraction, acute on chronic diastolic heart failure fluid overloaded acute and chronic respiratory failure with hypoxia. She presented to the ER from banking specialist office due to increased shortness of breath [...] Pain: - Chronic back pain managed with [place] and gabapentin. - Pain exacerbated by prolonged standing, such as doing dishes. - Requests refill for [place], due on the or . - Reports [...] sounds: Normal breath sounds. Comments: O2 by [place] Abdominal: General: Bowel sounds are normal. Palpations: Abdomen i (more content not included)... Normal [facility] CNPNon 08-09-2025 CNPN Telephone (HCSIND) -------- SAMANTHA ROMERO ([id number]) 1965 F Date Time Provider Department 08/09/25 [facility] During your visit today, we recorded the following information about you: Fantasma Puente LSW 08/09/2025 9:59 AM Signed 08/09/25 The patient declined Social Work at start of care with [facility] 08/08/25 per RN. Thank You [...] mouth at bedtime as needed. - Insulin Catarina, Disposable, (DROPLET PEN NEEDLE) 31 gauge x [...] Test blood (more content not included)... Normal [facility] T4 Free SerPl-mCncon 025 Free T4 [Mass/Vol] 1.5 ng/dL Normal 0.9-1.7 [facility] Comment on above: Order Comment: Speci men Type: BLOOD SPECIMENOrdering Facility: [facility] Address: [address] [place] [address] Performed By: #### 3 024-7, [facility], 06529-7 ####[facility] LABCLIA [id number] [address] [place] TSH W/REFLEX FT4on 5 TSH Qn 8.580 m[IU]/L High 0.270-4.200 [facility] Comment on above: Order Comment: Speci men Type: BLOOD SPECIMENOrdering Facility: [facility] Address: [address] [place] [address] Performed By: #### 3 024-7, [facility], 93449-5 ####[facility] LABCLIA [id number] [address] [place] CNPMeli 08-08-2025 CNPN Telephone (HCSIND) -------- SAMANTHA ROMERO ([id number]) 1965 F Date Time Provider Department 08/08/25 [...] mouth at bedtime as needed. - Insulin Catarina, Disposable, (DROPLET PEN NEEDLE) 31 gauge x [...] as needed (more content not included)... Normal [facility] CNPNon 08-06-2025 CNPN Telephone (HCSIND) -------- ANYSAMANTHA Kerri ([id number]) 1965 F Date Time Provider Department 08/06/25 BRITTNI PEARSON HCSIND During your visit today, we recorded the following information about you: Brittni Pearson LPN 08/06/2025 12:05 PM Signed Called number listed as alternate due to pt having issues with her phone. [phone] . No answer, left message to return call to [facility] at [phone] and advised that we will have to close this referral if we do not hear back with date for reschedule. Brittni Pearson LPN August 06, 2025 12:04 PM Isabelle Oneal LPN 08/07/2025 1:50 PM Signed [facility]. Reports that our calls are coming [...] balance Date Reviewed: 07/09/2025 Reviewed by: Kay Paredse APRN.MANAGER APPOINTMENT - Fully Assessed Reason for Visit: Home [...] by mouth (more content not included)... Normal [facility] Kelvin 08-05-2025 SUNDAR Telephone (HCSIND) -------- SAMANTHA ROMERO ([id number]) 1965 F Date Time Provider Department 08/05/25 [...] of date. Thank you, GARIMA Darnell Terri, APRN.FELLING MACHINE OPERATOR 08/06/2025 9:27 AM Signed OK start of care on 08/06/25, let [facility] know Allergies As of Date: 08/05/2025 Noted Allergy Reaction METFORMIN 09/10/2016 6 - Diarrhea Comments: Diarrhea every time takes, even with ER dose OXYCODONE 07/07/2021 8 - GI Upset PERCOCET (OXYCODONE-ACETAMINOPHEN )05/07/2014 8 - GI Upset Comments: and off balance Date Reviewed: 07/09/2025 Reviewed by: Kay Paredes APRN.MANAGER APPOINTMENT - Fully Assessed Reason for Visit: Home [...] at bedtime. - flash glucose sensor (FREESTYLE TYALOR 14 DAY SENSOR) kit Use to check [...] mouth at bedtime as needed. - Insulin Catarina, Disposable, (DROPLET PEN NEEDLE) 31 gauge x 3/16 use 1 PEN NEEDLE to inject MEDICATION subcutaneously four times a day - fluticasone (FLONASE) 50 mcg/actuation nasal spray Use 1-2 Sprays in each nostril once daily as needed. - blood sugar diagnostic (BLOOD GLUCOSE TEST) test strip T (more content not included)... Normal [facility] Telephone (HCSIND) -------- SAMANTHA ROMERO ([id number]) 1965 F Date Time Provider Department 08/05/25 [...] Date Reviewed: 07/09/2025 Reviewed by: Kay Paredes APRN.MANAGER APPOINTMENT - Fully Assessed Reason for Visit: Home [...] mouth at bedtime as needed. - Insulin Catarina, Disposable, (DROPLET PEN NEEDLE) 31 gauge x [...] is wha (more content not included)... Normal [facility] Glucoseon 08-03-2025 FINGERSTICK GLU 174 mg/dL High 74-106 [facility] Comment on above: Result Comment: BRADEN GEMENT OF PATIENT CARE PER NURSING PROTOCOL Performed By: #### L 501.080 #### [facility] [address] [place], [address] FINGERSTICK GLU 115 mg/dL High 74-106 [facility] Comment on above: Result Comment: BRADEN GEMENT OF PATIENT CARE PER NURSING PROTOCOL Performed By: #### L 503.7505, L500.2500 #### [facility] [address] [place], [address] FINGERSTICK GLU 152 mg/dL High 74-106 [facility] Comment on above: Result Comment: BRADEN GEMENT OF PATIENT CARE PER NURSING PROTOCOL Performed By: #### L 501.080 #### [facility] [address] [place], [address] [facility] -------- SAMANTHA ROMERO ([id number]) 1965 F Date Time Provider Department 08/03/25 [...] AM Spoke with Ann-Marie @ phone #: [phone] - Stated will speak to patient and call us back. Nancy Reynolds LPN 08/04/2025 10:57 AM Signed Date/Time: 08/04/2025 10:56 AM Spoke with Barstowsahara hale @ phone #: [phone] - Preferred # for contact: [phone] Have you received help from a home care company in the last 60 days? No. Can you commit to a visit in this time frame? Yes. - If no, please advise that we would not be able to move forward with services and they would need to contact their provider when they are ready to start services. Are you agreeable to [facility] services? Yes. What address will we be seeing you at? [address] [address] Do you have any upcoming appointments or [...] Date Reviewed: 07/09/2025 Reviewed by: Kay Paredes APRN.MANAGER APPOINTMENT - Fully Assessed Reason for Visit: Home [...] - Fenofib (more content not included)... Normal [facility] Telephone (HCSIND) -------- SAMANTHA ROMERO ([id number]) 1965 F Date Time Provider Department 08/03/25 BRITTNI PEARSON During your visit today, we recorded the following information about you: Brittni Pearson LPN 08/03/2025 12:55 PM Signed Sarina Adams MD Please advise if you are agreeable to signing and following for [facility] services? Our Clinicians will be sending the Plan of Care to you for review and approval. They will reach out for any appropriate orders required to provide home care services for the patient. We are not able to initiate HHC services without a following provider. Home care clinicians may also obtain orders from [facility] Providers Thank you and we would be [...] Date Reviewed: 07/09/2025 Reviewed by: Kay Paredes APRN.MANAGER APPOINTMENT - Fully Assessed Reason for Visit: Home [...] insulin d (more content not included)... Normal [facility] Discharge Instructionon 10- Discharge Instruction [facility] Medical Records Department [address] [place] [address] Instructions for Home/Discharge Instructions 08/03/25 1553 MR#: [id number] Acct: [id number] Name: SAMANTHA ROMERO Rep #: [id number] : 1965 59 From: Sol Mock DO [...] Service 08/03/25 1601 Sol Mock DO CC: HOSPICE CARE SALES CONSULTANT-C Siobhan Cosme; Dr. Franky Haque DO; Dr. Sarina Adams MD Signed [facility] MR/CON.PCMAbdirahman 08-03-2025 MR/CON.PCM.[facility] Medical Records Department [address] [place] [address] Consultation - Palliative Care 08/03/25 0835 MR#: [id number] Acct: [id number] Name: SAMANTHA ROMERO Rep #: [id number] : 1965 59 From: Siobhan Cosme HOSPICE CARE SALES CONSULTANT -C PCP: Dr. Sarina Adams MD Status:ADM IN Location: [address] Medical History Swelling of both lower [...] normocephalic E (more content not included)... Normal [facility] Basic Metabolic Profile (BMP )on 08-02-2025 BUN/CRE 23.5 RATIO High 07-23 [facility] Comment on above: Performed By: #### L 503.3355, L500.2500 #### [facility] [address] [place], [address] Calcium [Mass/Vol] 8.9 mg/dL Normal 7.6-11.0 [facility] Comment on above: Performed By: #### L 503.7505, L500.2500 #### [facility] [address] [place], [address] Chloride [Moles/Vol] 108 mmol/L Normal 98-[address] [facility] Comment on above: Performed By: #### L 503.7505, L500.2500 #### [facility] [address] [place], [address] CO2 [Moles/Vol] 27.7 mmol/L Normal 21.0-32.0 [facility] Comment on above: Performed By: #### L 503.7505, L500.2500 #### [facility] [address] [place], [address] Creatinine [Mass/Vol] 1.41 mg/dL High 0.70-1.20 [facility] Comment on above: Performed By: #### L 503.7505, L500.2500 #### [facility] [address] [place], [address] ECRCL 55.51 ml/min Normal 50-250 [facility] Comment on above: Performed By: #### L 503.7505, L500.2500 #### [facility] [address] [place], [address] GAP 8 Normal 5-15 [facility] Comment on above: Performed By: #### L 503.7505, L500.2500 #### [facility] [address] [place], [address] GFR/1.73 sq M.predicted among non-blacks MDRD (S/P/Bld) [Vol rate/Area] 43 mL/min/{1.73_m2} Low >60 [facility] Comment on above: Result Comment: mL/m in/1.73m2 CKD-EPI Creatinine Equation (2020) Performed By: #### L 503.7505, L500.2500 #### [facility] [address] [place], [address] Glucose [Mass/Vol] 135 mg/dL High 70-99 [facility] Comment on above: Performed By: #### L 503.7505, L500.2500 #### [facility] [address] [place], [address] Potassium [Moles/Vol] 4.7 mmol/L Normal 3.3-5.1 [facility] Comment on above: Performed By: #### L 503.7505, L500.2500 #### [facility] [address] [place], [address] Sodium [Moles/Vol] 144 mmol/L Normal 133-145 [facility] Comment on above: Performed By: #### L 503.7505, L500.2500 #### [facility] [address] [place], [address] Urea nitrogen [Mass/Vol] 33 mg/dL High 4-19 [facility] Comment on above: Performed By: #### L 503.7505, L500.2500 #### [facility] [address] [place], [address] Bedside Glucoseon 08-02-2025 FINGERSTICK GLU 221 mg/dL High 74-106 [facility] Comment on above: Result Comment: BRADEN GEMENT OF PATIENT CARE PER NURSING PROTOCOL Performed By: #### L 503.7505, L500.2500 #### [facility] [address] [place], [address] FINGERSTICK GLU 189 mg/dL High 74-106 [facility] Comment on above: Result Comment: BRADEN GEMENT OF PATIENT CARE PER NURSING PROTOCOL Performed By: #### L 503.7505, L500.2500 #### [facility] [address] [place], [address] FINGERSTICK GLU 148 mg/dL High 74-106 [facility] Comment on above: Result Comment: BRADEN GEMENT OF PATIENT CARE PER NURSING PROTOCOL Performed By: #### L 501.080 #### [facility] [address] [place], [address] FINGERSTICK GLU 143 mg/dL High 74-106 [facility] Comment on above: Result Comment: BRADEN GEMENT OF PATIENT CARE PER NURSING PROTOCOL Performed By: #### L 503.7505, L500.2500 #### [facility] [address] [place], [address] CBC-Complete Blood Cnt No Di ffon 08-02-2025 Erythrocyte distribution width (RBC) [Ratio] 15.9 % High 11.6-14.6 [facility] Comment on above: Performed By: #### L 503.7505, L500.2500 #### [facility] [address] [place], [address] Hematocrit (Bld) [Volume fraction] 35.7 % Low 37-47 [facility] Comment on above: Performed By: #### L 503.7505, L500.2500 #### [facility] [address] [place], [address] Hemoglobin (Bld) [Mass/Vol] 10.9 g/dL Low 12.0-15.0 [facility] Comment on above: Performed By: #### L 503.7505, L500.2500 #### [facility] [address] [place], [address] MCH (RBC) [Entitic mass] 28.0 pg Normal 27.0-32.0 [facility] Comment on above: Performed By: #### L 503.7505, L500.2500 #### [facility] [address] [place], [address] MCHC (RBC) [Mass/Vol] 30.5 g/dL Low 32-36 [facility] Comment on above: Performed By: #### L 503.7505, L500.2500 #### [facility] [address] [place], [address] MCV (RBC) [Entitic vol] 91.8 fL Normal 81-99 [facility] Comment on above: Performed By: #### L 503.7505, L500.2500 #### [facility] [address] [place], [address] Platelet mean volume (Bld) [Entitic vol] 11.8 fL Normal 6.2-12.0 [facility] Comment on above: Performed By: #### L 503.7505, L500.2500 #### [facility] [address] [place], [address] Platelets (Bld) [#/Vol] 138 10*3/uL Low 150-450 [facility] Comment on above: Performed By: #### L 503.7505, L500.2500 #### [facility] [address] [place], [address] RBC (Bld) [#/Vol] 3.89 10*6/uL Low 4.2-5.4 [facility] Comment on above: Performed By: #### L 503.7505, L500.2500 #### [facility] [address] [place], [address] RDW SD 52.6 fl High 35.1-43.9 [facility] Comment on above: Performed By: #### L 503.7505, L500.2500 #### [facility] [address] [place], [address] WBC (Bld) [#/Vol] 4.5 10*3/uL Normal 4.4-11.0 [facility] Comment on above: Performed By: #### L 503.7505, L500.2500 #### [facility] [address] [place], [address] L509.6001on 08-02-2025 CORTISOL 16.80 ug/dL Normal 6.02-18.40 [facility] Comment on above: Performed By: #### L 501.080 #### [facility] [address] [place], [address] 12 Lead EKGon 08-01-2025 12 Lead EKG [facility] Cardiovascular Services [address] [place] [address] 12 Lead EKG 08/01/25 1220 MR#: [id number] Acct: [id number] Name: SAMANTHA ROMERO Rep #: [id number] : 1965 59 From: Ed Barraza MD Attending Dr: Dr. Sol Mock DO Status: A DM IN Ordering Dr: Tayler Leach DO Date: 08/01/25 Location: [facility] Sex: F C Admitted: 08/01/25 Test [...] normal ECG Confirmed by ED BARRAZA MD ([id number]), development editor ALICJA DE LA PAZ ([id number]) on 08/03/2025 10:06:26 AM Referred By: RU Confirmed By: ED BARRAZA MD 08/03/25 1006 Date Ed Barraza MD CC: Dr. Sarina Adams MD; Dr. Sol Mock DO; Dr. Tayler Leach DO Signed Normal [facility] Abdomen/Pelvis without Conto n 08-01-2025 Abdomen/Pelvis without Cont [facility] Imaging Services [address] [place] [id number] Abdomen/Pelvis without Cont MR#: [id number] Acct: [id number] Name: SAMANTHA ROMERO Rep #: [id number] : 1965 F 59 From: Laci Conroy MD PCP: Dr. Sarina Adams MD Status: REG ER Study: Abdomen/Pelvis without Cont Date of Exam: 07/05 06/28 Exam# [id number] Ordering Dr: Tayler Leach DO PROCEDURE: ABDOMEN/PELVIS [...] Sarina Adams MD; Dr. Tayler Leach DO Bingo Usher: Signed Normal [facility] Bedside Glucoseon 08-01-2025 FINGERSTICK GLU 117 mg/dL High 74-106 [facility] Comment on above: Result Comment: BRADEN PAZ OF PATIENT CARE PER NURSING PROTOCOL Performed By: #### L 501.080 #### [facility] [address] [place], [address] CBC W/Diff, Automatedon 07-05 Absolute Lymph 0.69 X10 3/uL Low 0.83-4.51 [facility] Comment on above: Performed By: #### L 501.080 #### [facility] [address] [place], [address] Absolute Neut 1.9 X10 3/uL Low 2.0-7.7 [facility] Comment on above: Performed By: #### L 501.080 #### [facility] [address] [place], [address] Basophils/100 WBC (Bld) 0.3 % Normal 0-1 [facility] Comment on above: Performed By: #### L 501.080 #### [facility] [address] [place], [address] Eosinophils/100 WBC (Bld) 7.1 % High 0-5 [facility] Comment on above: Performed By: #### L 501.080 #### [facility] [address] [place], [address] Erythrocyte distribution width (RBC) [Ratio] 15.5 % High 11.6-14.6 [facility] Comment on above: Performed By: #### L 501.080 #### [facility] [address] [place], [address] Hematocrit (Bld) [Volume fraction] 36.1 % Low 37-47 [facility] Comment on above: Performed By: #### L 501.080 #### [facility] [address] [place], [address] Hemoglobin (Bld) [Mass/Vol] 11.3 g/dL Low 12.0-15.0 [facility] Comment on above: Performed By: #### L 501.080 #### [facility] [address] [place], [address] IG% 0.300 Normal 0.0-0.9 [facility] Comment on above: Result Comment: IG% - Immature Granulocytes (promyelocytes, myelocytes and metamyelocytes) > 1% indicates that a LEFT SHIFT is Present. Performed By: #### L 501.080 #### [facility] [address] [place], [address] Lymphocytes/100 WBC (Bld) 22.1 % Normal 19-41 [facility] Comment on above: Performed By: #### L 501.080 #### [facility] [address] [place], [address] MCH (RBC) [Entitic mass] 28.7 pg Normal 27.0-32.0 [facility] Comment on above: Performed By: #### L 501.080 #### [facility] [address] [place], [address] MCHC (RBC) [Mass/Vol] 31.3 g/dL Low 32-36 [facility] Comment on above: Performed By: #### L 501.080 #### [facility] [address] [place], [address] MCV (RBC) [Entitic vol] 91.6 fL Normal 81-99 [facility] Comment on above: Performed By: #### L 501.080 #### [facility] [address] [place], [address] Monocytes/100 WBC (Bld) 10.3 % High 0-10 [facility] Comment on above: Performed By: #### L 501.080 #### [facility] [address] [place], [address] Neutrophils/100 WBC (Bld) 59.9 % Normal 47-70 [facility] Comment on above: Performed By: #### L 501.080 #### [facility] [address] [place], [address] Nucleated RBC (Bld) [#/Vol] 0 10*3/uL Normal 0-5 [facility] Comment on above: Performed By: #### L 501.080 #### [facility] [address] [place], [address] Platelet mean volume (Bld) [Entitic vol] 11.2 fL Normal 6.2-12.0 [facility] Comment on above: Performed By: #### L 501.080 #### [facility] [address] [place], [address] Platelets (Bld) [#/Vol] 110 10*3/uL Low 150-450 [facility] Comment on above: Performed By: #### L 501.080 #### [facility] [address] [place], [address] RBC (Bld) [#/Vol] 3.94 10*6/uL Low 4.2-5.4 [facility] Comment on above: Performed By: #### L 501.080 #### [facility] [address] [place], [address] RDW SD 51.8 fl High 35.1-43.9 [facility] Comment on above: Performed By: #### L 501.080 #### [facility] [address] [place], [address] WBC (Bld) [#/Vol] 3.1 10*3/uL Low 4.4-11.0 [facility] Comment on above: Performed By: #### L 501.080 #### [facility] [address] [place], [address] Chest 1 View (Portable)on Chest 1 View (Portable) [facility] Imaging Services [address] [place] [address] Chest 1 View (Portable) MR#: [id number] Acct: [id number] Name: SAMANTHA ROMERO Rep #: [id number] : 1965 F 59 From: Darius Coburn MD PCP: Dr. Sarina Adams MD Status: REG ER Study: Chest 1 View (Portable) Date of Exam: 08/01/25 Exam# [id number] Ordering Dr: Tayler Leach DO PROCEDURE: CHEST 1 VIEW (PORTABLE) 08/01/2025 REASON FOR EXAM: DYSPNEA TECHNIQUE: Frontal view of the chest. COMPARISON: July 09, 2025 FINDINGS: Hardware: EKG leads Heart: Enlarged Lungs: Central congestion, mild edema. Bones: The bones are unremarkable. RAD/Chest 1 View (Portable) IMPRESSION: Central congestion, mild edema. Reading Location: [id number] CC: Dr. Sarina Adams MD; Dr. Tayler Leach DO Bingo Usher: Signed Normal [facility] Comprehensive Metabolic Prof ilon 08-01-2025 Albumin [Mass/Vol] 3.1 g/dL Low 3.5-5.0 [facility] Comment on above: Performed By: #### L 503.7505, L500.2500 #### [facility] [address] [place], [address] Albumin/Globulin [Mass ratio] 0.9 {ratio} Normal 0.9-2.4 [facility] Comment on above: Performed By: #### L 503.7505, L500.2500 #### [facility] [address] [place], [address] ALK PHOS 99 U/L Normal 35-104 [facility] Comment on above: Performed By: #### L 503.7505, L500.2500 #### [facility] [address] [place], [address] ALT [Catalytic activity/Vol] 29 U/L Normal <=34 [facility] Comment on above: Performed By: #### L 503.7505, L500.2500 #### [facility] [address] [place], [address] AST [Catalytic activity/Vol] 42 U/L High <=31 [facility] Comment on above: Result Comment: Hemo lysis present, Results??could be affected. ?? Performed By: #### L 503.7505, L500.2500 #### [facility] [address] [place], [address] Bilirubin [Mass/Vol] 0.21 mg/dL Normal 0.00-1.[address] [facility] Comment on above: Performed By: #### L 503.7505, L500.2500 #### [facility] [address] [place], [address] BUN/CRE 25.0 RATIO High 10-20 [facility] Comment on above: Performed By: #### L 503.7505, L500.2500 #### [facility] [address] [place], [address] Calcium [Mass/Vol] 8.8 mg/dL Normal 7.6-11.0 [facility] Comment on above: Performed By: #### L 503.7505, L500.2500 #### [facility] [address] [place], [address] Chloride [Moles/Vol] 109 mmol/L High 98-[address] [facility] Comment on above: Performed By: #### L 503.7505, L500.2500 #### [facility] [address] [place], [address] CO2 [Moles/Vol] 27.0 mmol/L Normal 21.0-32.0 [facility] Comment on above: Performed By: #### L 503.7505, L500.2500 #### [facility] [address] [place], [address] Creatinine [Mass/Vol] 1.34 mg/dL High 0.70-1.20 [facility] Comment on above: Performed By: #### L 503.7505, L500.2500 #### [facility] [address] [place], [address] GAP 8 Normal 5-15 [facility] Comment on above: Performed By: #### L 503.7505, L500.2500 #### [facility] [address] [place], [address] GFR/1.73 sq M.predicted among non-blacks MDRD (S/P/Bld) [Vol rate/Area] 46 mL/min/{1.73_m2} Low >60 [facility] Comment on above: Result Comment: mL/m in/1.73m2 CKD-EPI Creatinine Equation (2020) Performed By: #### L 503.7505, L500.2500 #### [facility] [address] [place], [address] Globulin (S) [Mass/Vol] 3.3 g/dL Normal 2.2-4.2 [facility] Comment on above: Performed By: #### L 503.7505, L500.2500 #### [facility] [address] [place], [address] Glucose [Mass/Vol] 116 mg/dL High 70-99 [facility] Comment on above: Performed By: #### L 503.7505, L500.2500 #### [facility] [address] [place], [address] Potassium [Moles/Vol] 4.7 mmol/L Normal 3.3-5.1 [facility] Comment on above: Result Comment: Hemo lysis present, Results??could be affected. ?? Performed By: #### L 503.7505, L500.2500 #### [facility] [address] [place], [address] Sodium [Moles/Vol] 144 mmol/L Normal 133-145 [facility] Comment on above: Performed By: #### L 503.7505, L500.2500 #### [facility] [address] [place], [address] T PROT 6.4 g/dL Normal 5.9-8.4 [facility] Comment on above: Performed By: #### L 503.7505, L500.2500 #### [facility] [address] [place], [address] Urea nitrogen [Mass/Vol] 34 mg/dL High 4-19 [facility] Comment on above: Performed By: #### L 503.7505, L500.2500 #### [facility] [address] [place], [address] Echo, Limited Studyon 2024 Echo, Limited Study [facility] Cardiovascular Services [address] [place] [address] Echo, Limited Study 08/01/25 1622 MR#: [id number] Acct: [id number] Name: SAMANTHA ROMERO Kerri Rep #: [id number] : 1965 59 From: Sophia Horta MD [...] 1020 Date Sophia Horta MD CC: Dr. Sarian Adams MD; Dr. Sol Mock DO; Dr. Tayler Leach DO Date Dictated: 08/01/25 1622 Date Transcribed: 08/02/25 1020 Bingo Usher: Signed Normal [facility] Emergency Department Summary on 08-01-2025 Emergency Department Summary [facility] Medical Records Department [address] [place] [address] Emergency Department Summary 08/01/25 MR#: [id number] Acct: [id number] Name: SAMANTHA ROMERO Rep #: [id number] : 1965 59 From: Tayler Leach DO [...] COVID to her lungs 4 years ago. [facility] Medical History COVID History of hypothyroidism Type [...] trunk a (more content not included)... Normal [facility]P Exam - Hospitalist [facility] Medical Records Department [address] [place] [address] H P Exam - Hospitalist 08/01/25 1659 MR#: [id number] Acct: [id number] Name: SAMANTHA ROMERO Rep #: [id number] : 1965 59 From: Franky Haque DO PCP: Dr. Sarina Adams MD Status:ADM IN Location: [place] [address] HPI - General General Date of Admission: 08/01/25 Date of Service: 08/01/25 Chief Complaint: Weakness and lower extremity swelling HPI Narrative SAMANTHA ROMERO, is a 59 F who presented to [facility] ED on 08/01/2025 with worsening [...] me. Will be admitted for further management. [facility] Medical History COVID History of hypothyroidism Type [...] Father Diabetes (more content not included)... Normal [facility] L501.4021on 08-01-2025 Trop T High Sen 41 ng/L High <=14 [facility] Comment on above: Performed By: #### L 100.0100, L503.6005, L500.4050 #### [facility] [address] [place], [address] Lactic Acidon 08-01-2025 Lactate [Moles/Vol] mmol/L Normal 0.0-2.0 [facility] Comment on above: Order Comment: Y Performed By: #### L 503.7505, L500.2500 #### [facility] [address] [place], [address] Pro- Brain NATRIURETIC PEPTI Harvey 08-01-2025 Natriuretic peptide B (Bld) [Mass/Vol] 88 pg/mL Normal <=900 [facility] Comment on above: Result Comment: Hear t Failure Unlikely: < 300 pg/mL Heart Failure Likely < 50 Years: > 450 pg/mL 50-75 Years: > 900 pg/mL >75 Years: > 1800 pg/mL Performed By: #### L 503.7505, L500.2500 #### [facility] [address] [place], [place], [id number] T4 Free Directon 08-01-2025 T4 FREE DIRECT 0.60 ng/dL Low 0.76-1.46 [facility] Comment on above: Order Comment: Comme nts: ok to add onok to add on Performed By: #### L 503.7505, L500.2500 #### [facility] [address] [place], [address] Thyroid Stim Hormone (TSH)on 08-01-2025 TSH 56.800 uIU/mL High 0.300-4.200 [facility] Comment on above: Order Comment: Comme nts: ok to add on Performed By: #### L 503.7505, L500.2500 #### [facility] [address] [place], [address] Troponin T HS 2 HRon 025 Trop T High Sen 40 ng/L High <=14 [facility] Comment on above: Performed By: #### L 501.080 #### [facility] [address] [place], [address] Troponin T HS 4 HRon 025 Trop T High Sen 38 ng/L High <=14 [facility] Comment on above: Performed By: #### L 501.080 #### [facility] [address] [place], [address] Urinalysis, Completeon 08-01 CAST,HYALINE 0-5 SEEN Normal 0-5 [facility] Comment on above: Order Comment: CLEAN CATCH Performed By: #### L 503.7505, L500.2500 #### [facility] [address] [place], [address] EPI,SQUAMOUS 0-5 SEEN Normal 5-10 [facility] Comment on above: Order Comment: CLEAN CATCH Performed By: #### L 503.7505, L500.2500 #### [facility] [address] [place], [address] RBC 0-5 SEEN Normal 0-5 [facility] Comment on above: Order Comment: CLEAN CATCH Performed By: #### L 503.7505, L500.2500 #### [facility] [address] [place], [address] WBC 5-10 SEEN Normal 0-5 [facility] Comment on above: Order Comment: CLEAN CATCH Performed By: #### L 503.7505, L500.2500 #### [facility] [address] [place], [address] BACTERIA 0 SEEN Normal None Seen [facility] Comment on above: Order Comment: CLEAN CATCH Performed By: #### L 503.7505, L500.2500 #### [facility] [address] [place], [address] Mucus Ql (Urine sed) 0 SEEN Normal [facility] Comment on above: Order Comment: CLEAN CATCH Performed By: #### L 503.7505, L500.2500 #### [facility] [address] [place], [address] Basic Metabolic Profile (BMP )on 07-17-2025 BUN Normal 4-19 [facility] Comment on above: Result Comment: Canc elled via OM: Order cancelled - Patient discharged Performed By: #### L 503.7505, L500.2500 #### [facility] [address] [place], [address] BUN/CRE Normal 10-20 [facility] Comment on above: Result Comment: Canc elled via OM: Order cancelled - Patient discharged Performed By: #### L 503.7505, L500.2500 #### [facility] [address] [place], [address] Calcium Normal 7.6-11.0 [facility] Comment on above: Result Comment: Canc elled via OM: Order cancelled - Patient discharged Performed By: #### L 503.7505, L500.2500 #### [facility] [address] [place], [address] CL Normal 98-108 [facility] Comment on above: Result Comment: Canc elled via OM: Order cancelled - Patient discharged Performed By: #### L 503.7505, L500.2500 #### [facility] [address] [place], [address] CO2 Normal 21.0-32.0 [facility] Comment on above: Result Comment: Canc elled via OM: Order cancelled - Patient discharged Performed By: #### L 503.7505, L500.2500 #### [facility] [address] [place], [address] CREAT,SERUM Normal 0.70-1.20 [facility] Comment on above: Result Comment: Canc elled via OM: Order cancelled - Patient discharged Performed By: #### L 503.7505, L500.2500 #### [facility] [address] [place], [address] eGFR Normal >60 [facility] Comment on above: Result Comment: Canc elled via OM: Order cancelled - Patient discharged Performed By: #### L 503.7505, L500.2500 #### [facility] [address] [place], [address] GAP Normal 5-15 [facility] Comment on above: Result Comment: Canc elled via OM: Order cancelled - Patient discharged Performed By: #### L 503.7505, L500.2500 #### [facility] [address] [place], [address] GLU Normal 70-99 [facility] Comment on above: Result Comment: Canc elled via OM: Order cancelled - Patient discharged Performed By: #### L 503.7505, L500.2500 #### [facility] [address] [place], [address] Potassium Normal 3.3-5.1 [facility] Comment on above: Result Comment: Canc elled via OM: Order cancelled - Patient discharged Performed By: #### L 503.7505, L500.2500 #### [facility] [address] [place], [address] Basic Metabolic Profile (BMP) Normal 133-145 [facility] Comment on above: Result Comment: Canc elled via OM: Order cancelled - Patient discharged Performed By: #### L 503.7505, L500.2500 #### [facility] [address] [place], [address] CBC-Complete Blood Cnt No Di ffon 07-17-2025 HCT Normal 37-47 [facility] Comment on above: Result Comment: Canc elled via OM: Order cancelled - Patient discharged Performed By: #### L 503.7505, L500.2500 #### [facility] [address] [place], [address] HGB Normal 12.0-15.0 [facility] Comment on above: Result Comment: Canc elled via OM: Order cancelled - Patient discharged Performed By: #### L 503.7505, L500.2500 #### [facility] [address] [place], [address] MCH Normal 27.0-32.0 [facility] Comment on above: Result Comment: Canc elled via OM: Order cancelled - Patient discharged Performed By: #### L 503.7505, L500.2500 #### [facility] [address] [place], [address] MCHC Normal 32-36 [facility] Comment on above: Result Comment: Canc elled via OM: Order cancelled - Patient discharged Performed By: #### L 503.7505, L500.2500 #### [facility] [address] [place], [address] MCV Normal 81-99 [facility] Comment on above: Result Comment: Canc elled via OM: Order cancelled - Patient discharged Performed By: #### L 503.7505, L500.2500 #### [facility] [address] [place], [address] PLT Normal 150-450 [facility] Comment on above: Result Comment: Canc elled via OM: Order cancelled - Patient discharged Performed By: #### L 503.7505, L500.2500 #### [facility] [address] [place], [address] RBC Normal 4.2-5.4 [facility] Comment on above: Result Comment: Canc elled via OM: Order cancelled - Patient discharged Performed By: #### L 503.7505, L500.2500 #### [facility] [address] [place], [address] RDW CV Normal 11.6-14.6 [facility] Comment on above: Result Comment: Canc elled via OM: Order cancelled - Patient discharged Performed By: #### L 503.7505, L500.2500 #### [facility] [address] [place], [address] RDW SD Normal 35.1-43.9 [facility] Comment on above: Result Comment: Canc elled via OM: Order cancelled - Patient discharged Performed By: #### L 503.7505, L500.2500 #### [facility] [address] [place], [address] WBC Normal 4.4-11.0 [facility] Comment on above: Result Comment: Canc elled via OM: Order cancelled - Patient discharged Performed By: #### L 503.7505, L500.2500 #### [facility] [address] [place], [address] Basic Metabolic Profile (BMP )on 07-16-2025 BUN Normal 4-19 [facility] Comment on above: Result Comment: Canc elled via OM: Order cancelled - Patient discharged Performed By: #### L 501.080 #### [facility] [address] [place], [address] BUN/CRE Normal 10-20 [facility] Comment on above: Result Comment: Canc elled via OM: Order cancelled - Patient discharged Performed By: #### L 501.080 #### [facility] [address] [place], [address] Calcium Normal 7.6-11.0 [facility] Comment on above: Result Comment: Canc elled via OM: Order cancelled - Patient discharged Performed By: #### L 501.080 #### [facility] [address] [place], [address] CL Normal 98-108 [facility] Comment on above: Result Comment: Canc elled via OM: Order cancelled - Patient discharged Performed By: #### L 501.080 #### [facility] [address] [place], [address] CO2 Normal 21.0-32.0 [facility] Comment on above: Result Comment: Canc elled via OM: Order cancelled - Patient discharged Performed By: #### L 501.080 #### [facility] [address] [place], [address] CREAT,SERUM Normal 0.70-1.20 [facility] Comment on above: Result Comment: Canc elled via OM: Order cancelled - Patient discharged Performed By: #### L 501.080 #### [facility] [address] [place], [address] eGFR Normal >60 [facility] Comment on above: Result Comment: Canc elled via OM: Order cancelled - Patient discharged Performed By: #### L 501.080 #### [facility] [address] [place], [address] GAP Normal 5-15 [facility] Comment on above: Result Comment: Canc elled via OM: Order cancelled - Patient discharged Performed By: #### L 501.080 #### [facility] [address] [place], [address] GLU Normal 70-99 [facility] Comment on above: Result Comment: Canc elled via OM: Order cancelled - Patient discharged Performed By: #### L 501.080 #### [facility] [address] [place], [address] Potassium Normal 3.3-5.1 [facility] Comment on above: Result Comment: Canc elled via OM: Order cancelled - Patient discharged Performed By: #### L 501.080 #### [facility] [address] [place], [address] Basic Metabolic Profile (BMP) Normal 133-145 [facility] Comment on above: Result Comment: Canc elled via OM: Order cancelled - Patient discharged Performed By: #### L 501.080 #### [facility] [address] [place], [address] CBC-Complete Blood Cnt No Di ffon 07-16-2025 HCT Normal 37-47 [facility] Comment on above: Result Comment: Canc elled via OM: Order cancelled - Patient discharged Performed By: #### L 501.080 #### [facility] [address] [place], [address] HGB Normal 12.0-15.0 [facility] Comment on above: Result Comment: Canc elled via OM: Order cancelled - Patient discharged Performed By: #### L 501.080 #### [facility] [address] [place], [address] MCH Normal 27.0-32.0 [facility] Comment on above: Result Comment: Canc elled via OM: Order cancelled - Patient discharged Performed By: #### L 501.080 #### [facility] [address] [place], [address] MCHC Normal 32-36 [facility] Comment on above: Result Comment: Canc elled via OM: Order cancelled - Patient discharged Performed By: #### L 501.080 #### [facility] [address] [place], [address] MCV Normal 81-99 [facility] Comment on above: Result Comment: Canc elled via OM: Order cancelled - Patient discharged Performed By: #### L 501.080 #### [facility] [address] [place], [address] PLT Normal 150-450 [facility] Comment on above: Result Comment: Canc elled via OM: Order cancelled - Patient discharged Performed By: #### L 501.080 #### [facility] [address] [place], [address] RBC Normal 4.2-5.4 [facility] Comment on above: Result Comment: Canc elled via OM: Order cancelled - Patient discharged Performed By: #### L 501.080 #### [facility] [address] [place], [address] RDW CV Normal 11.6-14.6 [facility] Comment on above: Result Comment: Canc elled via OM: Order cancelled - Patient discharged Performed By: #### L 501.080 #### [facility] [address] [place], [address] RDW SD Normal 35.1-43.9 [facility] Comment on above: Result Comment: Canc elled via OM: Order cancelled - Patient discharged Performed By: #### L 501.080 #### [facility] [address] [place], [address] WBC Normal 4.4-11.0 [facility] Comment on above: Result Comment: Canc elled via OM: Order cancelled - Patient discharged Performed By: #### L 501.080 #### [facility] [address] [place], [address] Basic Metabolic Profile (BMP )on 07-15-2025 BUN Normal 4-19 [facility] Comment on above: Result Comment: Canc elled via OM: Order cancelled - Patient discharged Performed By: #### L 100.0100, L503.6005, L500.4050 #### [facility] [address] [place], [address] BUN/CRE Normal 10-20 [facility] Comment on above: Result Comment: Canc elled via OM: Order cancelled - Patient discharged Performed By: #### L 100.0100, L503.6005, L500.4050 #### [facility] [address] [place], [address] Calcium Normal 7.6-11.0 [facility] Comment on above: Result Comment: Canc elled via OM: Order cancelled - Patient discharged Performed By: #### L 100.0100, L503.6005, L500.4050 #### [facility] [address] [place], [address] CL Normal 98-108 [facility] Comment on above: Result Comment: Canc elled via OM: Order cancelled - Patient discharged Performed By: #### L 100.0100, L503.6005, L500.4050 #### [facility] [address] [place], [address] CO2 Normal 21.0-32.0 [facility] Comment on above: Result Comment: Canc elled via OM: Order cancelled - Patient discharged Performed By: #### L 100.0100, L503.6005, L500.4050 #### [facility] [address] [place], [address] CREAT,SERUM Normal 0.70-1.20 [facility] Comment on above: Result Comment: Canc elled via OM: Order cancelled - Patient discharged Performed By: #### L 100.0100, L503.6005, L500.4050 #### [facility] [address] [place], [address] eGFR Normal >60 [facility] Comment on above: Result Comment: Canc elled via OM: Order cancelled - Patient discharged Performed By: #### L 100.0100, L503.6005, L500.4050 #### [facility] [address] [place], [address] GAP Normal 5-15 [facility] Comment on above: Result Comment: Canc elled via OM: Order cancelled - Patient discharged Performed By: #### L 100.0100, L503.6005, L500.4050 #### [facility] [address] [place], [address] GLU Normal 70-99 [facility] Comment on above: Result Comment: Canc elled via OM: Order cancelled - Patient discharged Performed By: #### L 100.0100, L503.6005, L500.4050 #### [facility] [address] [place], [address] Potassium Normal 3.3-5.1 [facility] Comment on above: Result Comment: Canc elled via OM: Order cancelled - Patient discharged Performed By: #### L 100.0100, L503.6005, L500.4050 #### [facility] [address] [place], [address] Basic Metabolic Profile (BMP) Normal 133-145 [facility] Comment on above: Result Comment: Canc elled via OM: Order cancelled - Patient discharged Performed By: #### L 100.0100, L503.6005, L500.4050 #### [facility] [address] [place], [address] CBC-Complete Blood Cnt No Di ffon 07-15-2025 HCT Normal 37-47 [facility] Comment on above: Result Comment: Canc elled via OM: Order cancelled - Patient discharged Performed By: #### L 100.0100, L503.6005, L500.4050 #### [facility] [address] [place], [address] HGB Normal 12.0-15.0 [facility] Comment on above: Result Comment: Canc elled via OM: Order cancelled - Patient discharged Performed By: #### L 100.0100, L503.6005, L500.4050 #### [facility] [address] [place], [address] MCH Normal 27.0-32.0 [facility] Comment on above: Result Comment: Canc elled via OM: Order cancelled - Patient discharged Performed By: #### L 100.0100, L503.6005, L500.4050 #### [facility] [address] [place], [address] MCHC Normal 32-36 [facility] Comment on above: Result Comment: Canc elled via OM: Order cancelled - Patient discharged Performed By: #### L 100.0100, L503.6005, L500.4050 #### [facility] [address] [place], [address] MCV Normal 81-99 [facility] Comment on above: Result Comment: Canc elled via OM: Order cancelled - Patient discharged Performed By: #### L 100.0100, L503.6005, L500.4050 #### [facility] [address] [place], [address] PLT Normal 150-450 [facility] Comment on above: Result Comment: Canc elled via OM: Order cancelled - Patient discharged Performed By: #### L 100.0100, L503.6005, L500.4050 #### [facility] [address] [place], [address] RBC Normal 4.2-5.4 [facility] Comment on above: Result Comment: Canc elled via OM: Order cancelled - Patient discharged Performed By: #### L 100.0100, L503.6005, L500.4050 #### [facility] [address] [place], [address] RDW CV Normal 11.6-14.6 [facility] Comment on above: Result Comment: Canc elled via OM: Order cancelled - Patient discharged Performed By: #### L 100.0100, L503.6005, L500.4050 #### [facility] [address] [place], [address] RDW SD Normal 35.1-43.9 [facility] Comment on above: Result Comment: Canc elled via OM: Order cancelled - Patient discharged Performed By: #### L 100.0100, L503.6005, L500.4050 #### [facility] [address] [place], [address] WBC Normal 4.4-11.0 [facility] Comment on above: Result Comment: Canc elled via OM: Order cancelled - Patient discharged Performed By: #### L 100.0100, L503.6005, L500.4050 #### [facility] [address] [place], [address] Basic Metabolic Profile (BMP )on 07-14-2025 BUN Normal 4-19 [facility] Comment on above: Result Comment: Canc elled via OM: Order cancelled - Patient discharged Performed By: #### L 501.080 #### [facility] [address] [place], [address] BUN/CRE Normal - [facility] Comment on above: Result Comment: Canc elled via OM: Order cancelled - Patient discharged Performed By: #### L 501.080 #### [facility] [address] [place], [address] Calcium Normal 7.6-11.0 [facility] Comment on above: Result Comment: Canc elled via OM: Order cancelled - Patient discharged Performed By: #### L 501.080 #### [facility] [address] [place], [address] CL Normal 98-108 [facility] Comment on above: Result Comment: Canc elled via OM: Order cancelled - Patient discharged Performed By: #### L 501.080 #### [facility] [address] [place], [address] CO2 Normal 21.0-32.0 [facility] Comment on above: Result Comment: Canc elled via OM: Order cancelled - Patient discharged Performed By: #### L 501.080 #### [facility] [address] [place], [address] CREAT,SERUM Normal 0.70-1.20 [facility] Comment on above: Result Comment: Canc elled via OM: Order cancelled - Patient discharged Performed By: #### L 501.080 #### [facility] [address] [place], [address] eGFR Normal >60 [facility] Comment on above: Result Comment: Canc elled via OM: Order cancelled - Patient discharged Performed By: #### L 501.080 #### [facility] [address] [place], [address] GAP Normal 5-15 [facility] Comment on above: Result Comment: Canc elled via OM: Order cancelled - Patient discharged Performed By: #### L 501.080 #### [facility] [address] [place], [address] GLU Normal 70-99 [facility] Comment on above: Result Comment: Canc elled via OM: Order cancelled - Patient discharged Performed By: #### L 501.080 #### [facility] [address] [place], [address] Potassium Normal 3.3-5.1 [facility] Comment on above: Result Comment: Canc elled via OM: Order cancelled - Patient discharged Performed By: #### L 501.080 #### [facility] [address] [place], [address] Basic Metabolic Profile (BMP) Normal 133-145 [facility] Comment on above: Result Comment: Canc elled via OM: Order cancelled - Patient discharged Performed By: #### L 501.080 #### [facility] [address] [place], [address] CBC-Complete Blood Cnt No Di ffon 07-14-2025 HCT Normal 37-47 [facility] Comment on above: Result Comment: Canc elled via OM: Order cancelled - Patient discharged Performed By: #### L 501.080 #### [facility] [address] [place], [address] HGB Normal 12.0-15.0 [facility] Comment on above: Result Comment: Canc elled via OM: Order cancelled - Patient discharged Performed By: #### L 501.080 #### [facility] [address] [place], [address] MCH Normal 27.0-32.0 [facility] Comment on above: Result Comment: Canc elled via OM: Order cancelled - Patient discharged Performed By: #### L 501.080 #### [facility] [address] [place], [address] MCHC Normal 32-36 [facility] Comment on above: Result Comment: Canc elled via OM: Order cancelled - Patient discharged Performed By: #### L 501.080 #### [facility] [address] [place], [address] MCV Normal 81-99 [facility] Comment on above: Result Comment: Canc elled via OM: Order cancelled - Patient discharged Performed By: #### L 501.080 #### [facility] [address] [place], [address] PLT Normal 150-450 [facility] Comment on above: Result Comment: Canc elled via OM: Order cancelled - Patient discharged Performed By: #### L 501.080 #### [facility] [address] [place], [address] RBC Normal 4.2-5.4 [facility] Comment on above: Result Comment: Canc elled via OM: Order cancelled - Patient discharged Performed By: #### L 501.080 #### [facility] [address] [place], [address] RDW CV Normal 11.6-14.6 [facility] Comment on above: Result Comment: Canc elled via OM: Order cancelled - Patient discharged Performed By: #### L 501.080 #### [facility] [address] [place], [address] RDW SD Normal 35.1-43.9 [facility] Comment on above: Result Comment: Canc elled via OM: Order cancelled - Patient discharged Performed By: #### L 501.080 #### [facility] [address] [place], [address] WBC Normal 4.4-11.0 [facility] Comment on above: Result Comment: Canc elled via OM: Order cancelled - Patient discharged Performed By: #### L 501.080 #### [facility] [address] [place], [address] Basic Metabolic Profile (BMP )on 07-13-2025 BUN Normal 4-19 [facility] Comment on above: Result Comment: Canc elled via OM: Order cancelled - Patient discharged Performed By: #### L 503.7505, L500.2500 #### [facility] [address] [place], [address] BUN/CRE Normal 10-20 [facility] Comment on above: Result Comment: Canc elled via OM: Order cancelled - Patient discharged Performed By: #### L 503.7505, L500.2500 #### [facility] [address] [place], [address] Calcium Normal 7.6-11.0 [facility] Comment on above: Result Comment: Canc elled via OM: Order cancelled - Patient discharged Performed By: #### L 503.7505, L500.2500 #### [facility] [address] [place], [address] CL Normal 98-108 [facility] Comment on above: Result Comment: Canc elled via OM: Order cancelled - Patient discharged Performed By: #### L 503.7505, L500.2500 #### [facility] [address] [place], [address] CO2 Normal 21.0-32.0 [facility] Comment on above: Result Comment: Canc elled via OM: Order cancelled - Patient discharged Performed By: #### L 503.7505, L500.2500 #### [facility] [address] [place], [address] CREAT,SERUM Normal 0.70-1.20 [facility] Comment on above: Result Comment: Canc elled via OM: Order cancelled - Patient discharged Performed By: #### L 503.7505, L500.2500 #### [facility] [address] [place], [address] eGFR Normal >60 [facility] Comment on above: Result Comment: Canc elled via OM: Order cancelled - Patient discharged Performed By: #### L 503.7505, L500.2500 #### [facility] [address] [place], [address] GAP Normal 5-15 [facility] Comment on above: Result Comment: Canc elled via OM: Order cancelled - Patient discharged Performed By: #### L 503.7505, L500.2500 #### [facility] [address] [place], [address] GLU Normal 70-99 [facility] Comment on above: Result Comment: Canc elled via OM: Order cancelled - Patient discharged Performed By: #### L 503.7505, L500.2500 #### [facility] [address] [place], [address] Potassium Normal 3.3-5.1 [facility] Comment on above: Result Comment: Canc elled via OM: Order cancelled - Patient discharged Performed By: #### L 503.7505, L500.2500 #### [facility] [address] [place], [address] Basic Metabolic Profile (BMP) Normal 133-145 [facility] Comment on above: Result Comment: Canc elled via OM: Order cancelled - Patient discharged Performed By: #### L 503.7505, L500.2500 #### [facility] [address] [place], [address] CBC-Complete Blood Cnt No Di ffon 07-13-2025 HCT Normal 37-47 [facility] Comment on above: Result Comment: Canc elled via OM: Order cancelled - Patient discharged Performed By: #### L 503.7505, L500.2500 #### [facility] [address] [place], [address] HGB Normal 12.0-15.0 [facility] Comment on above: Result Comment: Canc elled via OM: Order cancelled - Patient discharged Performed By: #### L 503.7505, L500.2500 #### [facility] [address] [place], [address] MCH Normal 27.0-32.0 [facility] Comment on above: Result Comment: Canc elled via OM: Order cancelled - Patient discharged Performed By: #### L 503.7505, L500.2500 #### [facility] [address] [place], [address] MCHC Normal 32-36 [facility] Comment on above: Result Comment: Canc elled via OM: Order cancelled - Patient discharged Performed By: #### L 503.7505, L500.2500 #### [facility] [address] [place], [address] MCV Normal 81-99 [facility] Comment on above: Result Comment: Canc elled via OM: Order cancelled - Patient discharged Performed By: #### L 503.7505, L500.2500 #### [facility] [address] [place], [address] PLT Normal 150-450 [facility] Comment on above: Result Comment: Canc elled via OM: Order cancelled - Patient discharged Performed By: #### L 503.7505, L500.2500 #### [facility] [address] [place], [address] RBC Normal 4.2-5.4 [facility] Comment on above: Result Comment: Canc elled via OM: Order cancelled - Patient discharged Performed By: #### L 503.7505, L500.2500 #### [facility] [address] [place], [address] RDW CV Normal 11.6-14.6 [facility] Comment on above: Result Comment: Canc elled via OM: Order cancelled - Patient discharged Performed By: #### L 503.7505, L500.2500 #### [facility] [address] [place], [address] RDW SD Normal 35.1-43.9 [facility] Comment on above: Result Comment: Canc elled via OM: Order cancelled - Patient discharged Performed By: #### L 503.7505, L500.2500 #### [facility] [address] [place], [address] WBC Normal 4.4-11.0 [facility] Comment on above: Result Comment: Canc elled via OM: Order cancelled - Patient discharged Performed By: #### L 503.7505, L500.2500 #### [facility] [address] [place], [address] Anion gap in Serum or Plasma Ordered By: Asya Hernandez on 07-12-2025 Anion gap [Moles/Vol] 10 mmol/L 5-15 [facility] BUN/creatinine ratioOrdered By: Asya Hernandez on 07-12-2025 Urea nitrogen/Creatinine [Mass ratio] 22.9 mg/mg High - [facility] Basic Metabolic Profile (BMP )on 07-12-2025 BUN/CRE 22.9 RATIO High [facility] Comment on above: Performed By: #### L 503.7505, L500.2500 #### [facility] [address] [place], [address] Calcium [Mass/Vol] 9.1 mg/dL Normal 7.6-11.0 [facility] Comment on above: Performed By: #### L 503.7505, L500.2500 #### [facility] [address] [place], [address] Chloride [Moles/Vol] 101 mmol/L Normal 98-[address] [facility] Comment on above: Performed By: #### L 503.7505, L500.2500 #### [facility] [address] [place], [address] CO2 [Moles/Vol] 29.9 mmol/L Normal 21.0-32.0 [facility] Comment on above: Performed By: #### L 503.7505, L500.2500 #### [facility] [address] [place], [address] Creatinine [Mass/Vol] 1.56 mg/dL High 0.70-1.20 [facility] Comment on above: Performed By: #### L 503.7505, L500.2500 #### [facility] [address] [place], [address] ECRCL 49.03 ml/min Low 50-250 [facility] Comment on above: Performed By: #### L 503.7505, L500.2500 #### [facility] [address] [place], [address] GAP 10 Normal 5-15 [facility] Comment on above: Performed By: #### L 503.7505, L500.2500 #### [facility] [address] [place], [address] GFR/1.73 sq M.predicted among non-blacks MDRD (S/P/Bld) [Vol rate/Area] 38 mL/min/{1.73_m2} Low >60 [facility] Comment on above: Result Comment: mL/m in/1.73m2 CKD-EPI Creatinine Equation (2020) Performed By: #### L 503.7505, L500.2500 #### [facility] [address] [place], [address] Glucose [Mass/Vol] 162 mg/dL High 70-99 [facility] Comment on above: Performed By: #### L 503.7505, L500.2500 #### [facility] [address] [place], [address] Potassium [Moles/Vol] 4.1 mmol/L Normal 3.3-5.1 [facility] Comment on above: Performed By: #### L 503.7505, L500.2500 #### [facility] [address] [place], [address] Sodium [Moles/Vol] 141 mmol/L Normal 133-145 [facility] Comment on above: Performed By: #### L 503.7505, L500.2500 #### [facility] [address] [place], [address] Urea nitrogen [Mass/Vol] 36 mg/dL High 4-19 [facility] Comment on above: Performed By: #### L 503.7505, L500.2500 #### [facility] [address] [place], [address] Bedside Glucoseon 07-12-2025 FINGERSTICK GLU 105 mg/dL Normal 74-106 [facility] Comment on above: Result Comment: BRADEN GEMENT OF PATIENT CARE PER NURSING PROTOCOL Performed By: #### L 503.7505, L500.2500 #### [facility] [address] [place], [address] FINGERSTICK GLU 151 mg/dL High 74-106 [facility] Comment on above: Result Comment: BRADEN GEMENT OF PATIENT CARE PER NURSING PROTOCOL Performed By: #### L 100.0100, L503.6005, L500.4050 #### [facility] [address] [place], [address] FINGERSTICK GLU 124 mg/dL High 74-106 [facility] Comment on above: Result Comment: BRADEN GEMENT OF PATIENT CARE PER NURSING PROTOCOL Performed By: #### L 503.7505, L500.2500 #### [facility] [address] [place], [address] CBC-Complete Blood Cnt No Di ffon 07-12-2025 Erythrocyte distribution width (RBC) [Ratio] 15.1 % High 11.6-14.6 [facility] Comment on above: Performed By: #### L 503.7505, L500.2500 #### [facility] [address] [place], [address] Hematocrit (Bld) [Volume fraction] 33.4 % Low 37-47 [facility] Comment on above: Performed By: #### L 503.7505, L500.2500 #### [facility] [address] [place], [address] Hemoglobin (Bld) [Mass/Vol] 10.4 g/dL Low 12.0-15.0 [facility] Comment on above: Performed By: #### L 503.7505, L500.2500 #### [facility] [address] [place], [address] MCH (RBC) [Entitic mass] 28.3 pg Normal 27.0-32.0 [facility] Comment on above: Performed By: #### L 503.7505, L500.2500 #### [facility] [address] [place], [address] MCHC (RBC) [Mass/Vol] 31.1 g/dL Low 32-36 [facility] Comment on above: Performed By: #### L 503.7505, L500.2500 #### [facility] [address] [place], [address] MCV (RBC) [Entitic vol] 90.8 fL Normal 81-99 [facility] Comment on above: Performed By: #### L 503.7505, L500.2500 #### [facility] [address] [place], [address] Platelet mean volume (Bld) [Entitic vol] 11.3 fL Normal 6.2-12.0 [facility] Comment on above: Performed By: #### L 503.7505, L500.2500 #### [facility] [address] [place], [address] Platelets (Bld) [#/Vol] 135 10*3/uL Low 150-450 [facility] Comment on above: Performed By: #### L 503.7505, L500.2500 #### [facility] [address] [place], [address] RBC (Bld) [#/Vol] 3.68 10*6/uL Low 4.2-5.4 [facility] Comment on above: Performed By: #### L 503.7505, L500.2500 #### [facility] [address] [place], [address] RDW SD 50.3 fl High 35.1-43.9 [facility] Comment on above: Performed By: #### L 503.7505, L500.2500 #### [facility] [address] [place], [address] WBC (Bld) [#/Vol] 5.2 10*3/uL Normal 4.4-11.0 [facility] Comment on above: Performed By: #### L 503.7505, L500.2500 #### [facility] [address] [place], [address] Carbon dioxide, total [Moles /volume] in Central venous bloodOrdered By: Asya Hernandez on 07-12-2025 CO2 [Moles/Vol] 29.9 mmol/L 21.0-32.0 [facility] Chloride assayOrdered By: Esau Hernandez on 07-12-2025 Chloride [Moles/Vol] 101 mmol/L 98-[address] [facility] Discharge Instructionon Discharge Instruction [facility] Medical Records Department [address] [place] [address] Instructions for Home/Discharge Instructions 07/12/25 1457 MR#: [id number] Acct: [id number] Name: SAMANTHA ROMERO Rep #: [id number] : 1965 59 From: Asya Hernandez MD [...] When you eat out, ask that the lime kiln worker not add any salt to your dish. Don't eat fried or greasy foods. Be careful of bottled beverages. They can contain a lot of salt -Call 911 right away if you have: -Severe shortness of breath, such that you can't catch your breath even while resting -Severe chest pain that does not resolve with rest or nitroglycerin -Shelby, foamy mucus with cough and shortness of [...] [Tresiba FlexTouc (more content not included)... Normal [facility] Erythrocyte distribution wid th ratioOrdered By: Asya Hernandez on 07-12-2025 Erythrocyte distribution width (RBC) [Ratio] 15.1 % High 11.6-14.6 [facility] Erythrocyte distribution wid th standard deviationOrdered By: Asya Hernandez on 07-12-2025 Erythrocyte distribution width (RBC) [Ratio] 50.3 fl High 35.1-43.9 [facility] Glomerular filtration rate ( GFR) estimation/1.73 sq m using serum, plasma, or whole bOrdered By: Asya Hernandez on 07-12-2025 GFR/1.73 sq M.predicted among non-blacks MDRD (S/P/Bld) [Vol rate/Area] 38 mL/min/{1.73_m2} Low >60 [facility] Comment on above: mL/min/1.73m2 CKD-EP I Creatinine Equation (2020) [facility] deOrdered By: Asya Hernandez on 07-12-2025 Glucose [Mass/Vol] 105 mg/dL 74-106 [facility] Comment on above: MANAGEMENT OF PATIEN T CARE PER NURSING PROTOCOL Hematocrit Auto (Bld) [Volum e fraction]Ordered By: Asya Hernandez on 07-12-2025 Hematocrit (Bld) [Volume fraction] 33.4 % Low 37-47 [facility] Hemoglobin measurementOrdere d By: Asya Hernandez on 07-12-2025 Hemoglobin (Bld) [Mass/Vol] 10.4 g/dL Low 12.0-15.0 [facility] MCV (mean corpuscular volume ) determinationOrdered By: Asya Hernandez on 07-12-2025 MCV (RBC) [Entitic vol] 90.8 fL 81-99 [facility] Mean corpuscular hemoglobin (MCH) determinationOrdered By: Asya Hernandez on 07-12-2025 MCH (RBC) [Entitic mass] 28.3 pg 27.0-32.0 [facility] Mean corpuscular hemoglobin concentration (MCHC) determinationOrdered By: Asya Hernandez on 07-12-2025 MCHC (RBC) [Mass/Vol] 31.1 g/dL Low 32-36 [facility] Mean platelet volume determi nationOrdered By: Asya Hernandez on 07-12-2025 Platelet mean volume (Bld) [Entitic vol] 11.3 fL 6.2-12.0 [facility] Platelet countOrdered By: Esau Hernandez on 07-12-2025 Platelets (Bld) [#/Vol] 135 10*3/uL Low 150-450 [facility] Potassium measurement (mass/ volume)Ordered By: Asya Hernandez on 07-12-2025 Potassium (Unsp spec) [Mass/Vol] 4.1 mmol/L 3.3-5.1 [facility] RBC Auto (Bld) [#/Vol]Ordere d By: Asya Hernandez on 07-12-2025 RBC (Bld) [#/Vol] 3.68 10*6/uL Low 4.2-5.4 [facility] Serum creatinine measurement (mass/volume)Ordered By: Asya Hernandez on 07-12-2025 Creatinine [Mass/Vol] 1.56 mg/dL High 0.70-1.20 [facility] Serum glucose measurement (m ass/volume)Ordered By: Asya Hernandez on 07-12-2025 Glucose [Mass/Vol] 162 mg/dL High 70-99 [facility] Serum or plasma calcium brando urement (mass/volume)Ordered By: Asya Hernandez on 07-12-2025 Calcium [Mass/Vol] 9.1 mg/dL 7.6-11.0 [facility] Serum or plasma urea nitroge n measurement (mass/volume)Ordered By: Asya Hernandez on 07-12-2025 Urea nitrogen [Mass/Vol] 36 mg/dL High 4-19 [facility] Sodium levelOrdered By: Phan Hernandez on 07-12-2025 Sodium [Moles/Vol] 141 mmol/L 133-145 [facility] White blood cell (WBC) count Ordered By: Asya Hernandez on 07-12-2025 WBC (Bld) [#/Vol] 5.2 10*3/uL 4.4-11.0 [facility] Basic Metabolic Profile (BMP )on 07-11-2025 BUN/CRE 21.9 RATIO High 10-20 [facility] Comment on above: Performed By: #### L 501.080 #### [facility] [address] [place], [address] Calcium [Mass/Vol] 9.2 mg/dL Normal 7.6-11.0 [facility] Comment on above: Performed By: #### L 501.080 #### [facility] [address] [place], [address] Chloride [Moles/Vol] 103 mmol/L Normal 98-[address] [facility] Comment on above: Performed By: #### L 501.080 #### [facility] [address] [place], [address] CO2 [Moles/Vol] 30.9 mmol/L Normal 21.0-32.0 [facility] Comment on above: Performed By: #### L 501.080 #### [facility] [address] [place], [address] Creatinine [Mass/Vol] 1.52 mg/dL High 0.70-1.20 [facility] Comment on above: Performed By: #### L 501.080 #### [facility] [address] [place], [address] ECRCL 50.90 ml/min Normal 50-250 [facility] Comment on above: Performed By: #### L 501.080 #### [facility] [address] [place], [address] GAP 9 Normal 5-15 [facility] Comment on above: Performed By: #### L 501.080 #### [facility] [address] [place], [address] GFR/1.73 sq M.predicted among non-blacks MDRD (S/P/Bld) [Vol rate/Area] 39 mL/min/{1.73_m2} Low >60 [facility] Comment on above: Result Comment: mL/m in/1.73m2 CKD-EPI Creatinine Equation (2020) Performed By: #### L 501.080 #### [facility] [address] [place], [address] Glucose [Mass/Vol] 127 mg/dL High 70-99 [facility] Comment on above: Performed By: #### L 501.080 #### [facility] [address] [place], [address] Potassium [Moles/Vol] 4.0 mmol/L Normal 3.3-5.1 [facility] Comment on above: Performed By: #### L 501.080 #### [facility] [address] [place], [address] Sodium [Moles/Vol] 143 mmol/L Normal 133-145 [facility] Comment on above: Performed By: #### L 501.080 #### [facility] [address] [place], [address] Urea nitrogen [Mass/Vol] 33 mg/dL High 4-19 [facility] Comment on above: Performed By: #### L 501.080 #### [facility] [address] [place], [address] Bedside Glucoseon 07-11-2025 FINGERSTICK GLU 177 mg/dL High 74-106 [facility] Comment on above: Result Comment: BRADEN GEMENT OF PATIENT CARE PER NURSING PROTOCOL Performed By: #### L 100.0100, L503.6005, L500.4050 #### [facility] [address] [place], [address] FINGERSTICK GLU 201 mg/dL High 74-106 [facility] Comment on above: Result Comment: BRADEN GEMENT OF PATIENT CARE PER NURSING PROTOCOL Performed By: #### L 501.080 #### [facility] [address] [place], [address] FINGERSTICK GLU 118 mg/dL High 74-106 [facility] Comment on above: Result Comment: BRADEN GEMENT OF PATIENT CARE PER NURSING PROTOCOL Performed By: #### L 501.080 #### [facility] [address] [place], [address] FINGERSTICK GLU 103 mg/dL Normal 74-106 [facility] Comment on above: Result Comment: BRADEN GEMENT OF PATIENT CARE PER NURSING PROTOCOL Performed By: #### L 501.080 #### [facility] [address] [place], [address] CBC-Complete Blood Cnt No Di ffon 07-11-2025 Erythrocyte distribution width (RBC) [Ratio] 15.4 % High 11.6-14.6 [facility] Comment on above: Performed By: #### L 501.080 #### [facility] [address] [place], [address] Hematocrit (Bld) [Volume fraction] 33.9 % Low 37-47 [facility] Comment on above: Performed By: #### L 501.080 #### [facility] [address] [place], [address] Hemoglobin (Bld) [Mass/Vol] 10.6 g/dL Low 12.0-15.0 [facility] Comment on above: Performed By: #### L 501.080 #### [facility] [address] [place], [address] MCH (RBC) [Entitic mass] 28.5 pg Normal 27.0-32.0 [facility] Comment on above: Performed By: #### L 501.080 #### [facility] [address] [place], [address] MCHC (RBC) [Mass/Vol] 31.3 g/dL Low 32-36 [facility] Comment on above: Performed By: #### L 501.080 #### [facility] [address] [place], [address] MCV (RBC) [Entitic vol] 91.1 fL Normal 81-99 [facility] Comment on above: Performed By: #### L 501.080 #### [facility] [address] [place], [address] Platelet mean volume (Bld) [Entitic vol] 11.4 fL Normal 6.2-12.0 [facility] Comment on above: Performed By: #### L 501.080 #### [facility] [address] [place], [address] Platelets (Bld) [#/Vol] 128 10*3/uL Low 150-450 [facility] Comment on above: Performed By: #### L 501.080 #### [facility] [address] [place], [address] RBC (Bld) [#/Vol] 3.72 10*6/uL Low 4.2-5.4 [facility] Comment on above: Performed By: #### L 501.080 #### [facility] [address] [place], [address] RDW SD 51.5 fl High 35.1-43.9 [facility] Comment on above: Performed By: #### L 501.080 #### [facility] [address] [place], [address] WBC (Bld) [#/Vol] 5.2 10*3/uL Normal 4.4-11.0 [facility] Comment on above: Performed By: #### L 501.080 #### [facility] [address] [place], [address] Electrocardiogram reportOrde red By: Ed Barraza on 07-11-[address] [facility] Cardiovascular Services [address] [address] 12 Lead EKG 07/09/25 1640 MR#: [id number] Acct: [id number] Name: SAMANTHA ROMERO Rep #:[id number] : 1965 59 From: Ed Barraza MD Attending Dr: Dr. Asya Hernandez MD Status: ADM IN Ordering Dr: Niranjan Leblanc DO Date: Location: [facility] Sex: F C Admitted: 07/09/25 Test Reason : SOB Blood Pressure : */* mmHG Vent. Rate : 70 BPM Atrial Rate : 70 BPM P-R Int : 202 ms QRS Dur : 100 ms QT Int : 428 ms P-R-T Axes : 18 2 36 degrees QTcB Int : 462 ms Normal sinus rhythm Normal ECG Confirmed by ED BARRAZA MD ([id number]), development editor ALICJA DE LA PAZ ([id number]) on 51:21:20 PM Referred By: Confirmed By: ED BARRAZA MD 07/11/25 1321 Date _ Ed Barraza MD CC: Dr. Sarina Adams MD; Dr. Asya Hernandez MD; Dr. Niranjan Leblanc DO ~ Signed [facility] Work Phone: Absolute lymphocyte countOrd ered By: Tavo Nielson on 07-10-2025 Lymphocytes Auto (Unsp spec) [#/Vol] 1.21 10*3/uL 0.83-4.51 [facility] Absolute neutrophil countOrd ered By: Tavo Nielson on 07-10-2025 Neutrophils (Bld) [#/Vol] 3.1 10*3/uL 2.0-7.7 [facility] Automated lymphocyte count a s percentage of total leukocytesOrdered By: Tavo Nielson on 07-10-2025 Lymphocytes/100 WBC Auto (Unsp spec) 23.4 % 19-41 [facility] Basic Metabolic Profile (BMP )on 07-10-2025 BUN/CRE 24.3 RATIO High 10-20 [facility] Comment on above: Performed By: #### L 501.080 #### [facility] [address] [place], [address] Calcium [Mass/Vol] 9.1 mg/dL Normal 7.6-11.0 [facility] Comment on above: Performed By: #### L 501.080 #### [facility] [address] [place], [address] Chloride [Moles/Vol] 108 mmol/L Normal 98-[address] [facility] Comment on above: Performed By: #### L 501.080 #### [facility] [address] [place], [address] CO2 [Moles/Vol] 29.4 mmol/L Normal 21.0-32.0 [facility] Comment on above: Performed By: #### L 501.080 #### [facility] [address] [place], [address] Creatinine [Mass/Vol] 1.34 mg/dL High 0.70-1.20 [facility] Comment on above: Performed By: #### L 501.080 #### [facility] [address] [place], [address] ECRCL 57.45 ml/min Normal 50-250 [facility] Comment on above: Performed By: #### L 501.080 #### [facility] [address] [place], [address] GAP 8 Normal 5-15 [facility] Comment on above: Performed By: #### L 501.080 #### [facility] [address] [place], [address] GFR/1.73 sq M.predicted among non-blacks MDRD (S/P/Bld) [Vol rate/Area] 46 mL/min/{1.73_m2} Low >60 [facility] Comment on above: Result Comment: mL/m in/1.73m2 CKD-EPI Creatinine Equation (2020) Performed By: #### L 501.080 #### [facility] [address] [place], [address] Glucose [Mass/Vol] 124 mg/dL High 70-99 [facility] Comment on above: Performed By: #### L 501.080 #### [facility] [address] [place], [address] Potassium [Moles/Vol] 4.0 mmol/L Normal 3.3-5.1 [facility] Comment on above: Performed By: #### L 501.080 #### [facility] [address] [place], [address] Sodium [Moles/Vol] 145 mmol/L Normal 133-145 [facility] Comment on above: Performed By: #### L 501.080 #### [facility] [address] [place], [address] Urea nitrogen [Mass/Vol] 33 mg/dL High 4-19 [facility] Comment on above: Performed By: #### L 501.080 #### [facility] [address] [place], [address] Basophil percentageOrdered B y: Tavo Nielson on 07-10-2025 Basophils/100 WBC (Bld) 0.4 % 0-1 [facility] Bedside Glucoseon 07-10-2025 FINGERSTICK GLU 100 mg/dL Normal 74-106 [facility] Comment on above: Result Comment: BRADEN GEMENT OF PATIENT CARE PER NURSING PROTOCOL Performed By: #### L 501.080 #### [facility] [address] [place], [address] FINGERSTICK GLU 97 mg/dL Normal 74-106 [facility] Comment on above: Result Comment: BRADEN GEMENT OF PATIENT CARE PER NURSING PROTOCOL Performed By: #### L 501.080 #### [facility] [address] [place], [address] FINGERSTICK GLU 93 mg/dL Normal 74-106 [facility] Comment on above: Result Comment: BRADEN GEMENT OF PATIENT CARE PER NURSING PROTOCOL Performed By: #### L 501.080 #### [facility] [address] [place], [address] FINGERSTICK GLU 81 mg/dL Normal 74-106 [facility] Comment on above: Result Comment: BRAEDN GEMENT OF PATIENT CARE PER NURSING PROTOCOL Performed By: #### L 100.0100, L503.6005, L500.4050 #### [facility] Laboratory [address] [place], [address] CBC W/Diff, Automatedon 10-0 7-2025 Absolute Lymph 1.21 X10 3/uL Normal 0.83-4.51 [facility] Comment on above: Performed By: #### L 501.080 #### [facility] Laboratory [address] [place], [address] Absolute Neut 3.1 X10 3/uL Normal 2.0-7.7 [facility] Comment on above: Performed By: #### L 501.080 #### [facility] Laboratory [address] [place], [address] Basophils/100 WBC (Bld) 0.4 % Normal 0-1 [facility] Comment on above: Performed By: #### L 501.080 #### [facility] Laboratory [address] [place], [address] Eosinophils/100 WBC (Bld) 6.8 % High 0-5 [facility] Comment on above: Performed By: #### L 501.080 #### [facility] Laboratory [address] [place], [address] Erythrocyte distribution width (RBC) [Ratio] 15.5 % High 11.6-14.6 [facility] Comment on above: Performed By: #### L 501.080 #### [facility] Laboratory [address] [place], [address] Hematocrit (Bld) [Volume fraction] 32.9 % Low 37-47 [facility] Comment on above: Performed By: #### L 501.080 #### [facility] Laboratory [address] [place], [address] Hemoglobin (Bld) [Mass/Vol] 10.4 g/dL Low 12.0-15.0 [facility] Comment on above: Performed By: #### L 501.080 #### [facility] Laboratory [address] [place], [address] IG% 0.800 Normal 0.0-0.9 [facility] Comment on above: Result Comment: IG% - Immature Granulocytes (promyelocytes, myelocytes and metamyelocytes) > 1% indicates that a LEFT SHIFT is Present. Performed By: #### L 501.080 #### [facility] Laboratory [address] [place], [address] Lymphocytes/100 WBC (Bld) 23.4 % Normal 19-41 [facility] Comment on above: Performed By: #### L 501.080 #### [facility] Laboratory [address] [place], [address] MCH (RBC) [Entitic mass] 28.3 pg Normal 27.0-32.0 [facility] Comment on above: Performed By: #### L 501.080 #### [facility] Laboratory [address] [place], [address] MCHC (RBC) [Mass/Vol] 31.6 g/dL Low 32-36 [facility] Comment on above: Performed By: #### L 501.080 #### [facility] Laboratory [address] [place], [address] MCV (RBC) [Entitic vol] 89.6 fL Normal 81-99 [facility] Comment on above: Performed By: #### L 501.080 #### [facility] Laboratory [address] [place], [address] Monocytes/100 WBC (Bld) 9.5 % Normal 0-10 [facility] Comment on above: Performed By: #### L 501.080 #### [facility] Laboratory [address] [place], [address] Neutrophils/100 WBC (Bld) 59.1 % Normal 47-70 [facility] Comment on above: Performed By: #### L 501.080 #### [facility] Laboratory [address] [place], [address] Nucleated RBC (Bld) [#/Vol] 0 10*3/uL Normal 0-5 [facility] Comment on above: Performed By: #### L 501.080 #### [facility] Laboratory [address] [place], [address] Platelet mean volume (Bld) [Entitic vol] 11.6 fL Normal 6.2-12.0 [facility] Comment on above: Performed By: #### L 501.080 #### [facility] Laboratory [address] [place], [address] Platelets (Bld) [#/Vol] 135 10*3/uL Low 150-450 [facility] Comment on above: Performed By: #### L 501.080 #### [facility] Laboratory [address] [place], [address] RBC (Bld) [#/Vol] 3.67 10*6/uL Low 4.2-5.4 [facility] Comment on above: Performed By: #### L 501.080 #### [facility] Laboratory [address] [place], [address] RDW SD 50.6 fl High 35.1-43.9 [facility] Comment on above: Performed By: #### L 501.080 #### [facility] Laboratory [address] [place], [address] WBC (Bld) [#/Vol] 5.2 10*3/uL Normal 4.4-11.0 [facility] Comment on above: Performed By: #### L 501.080 #### [facility] Laboratory [address] [place], [address] Echocardiogram study reportO rdered By: Ed Barraza on 07-10-2025 Study report [facility] Cardiovascular Services [address] [place] [address] Echo Complete 07/10/25 0841 MR#: [id number] Acct: [id number] Name: ANYEMERITAKate Manning Rep #:[id number] : 1965 59 From: Ed Duarte Attending [...] ~ Date Dictated: 07/10/25840 Date Transcribed: 07/10/251102 Bingo Usher: Signed [facility] Work Phone: Eosinophil percentageOrdered By: Tavo Nielson on 07-10-2025 Eosinophils/100 WBC (Bld) 6.8 % High 0-5 [facility] Hemoglobin A1con 07-10-2025 HbA1c (Bld) [Mass fraction] 8.5 % High <=5.6 [facility] Comment on above: Result Comment: Norm al < 5.7 % Prediabetic 5.7 - 6.4 % Diabetic >or= 6.5 % Please note range changes. Performed By: #### L 501.080 #### [facility] Laboratory [address] [place], [place], [address] Hemoglobin A1c percentageOrd ered By: Tavo Nielson on 07-10-2025 HbA1c (Bld) [Mass fraction] 8.5 % High <5.7 [facility] Comment on above: Normal < 5.7 % Predi abetic 5.7 - 6.4 % Diabetic >or= 6.5 % Please note range changes. Immature granulocytes/100 WB C Auto (Bld)Ordered By: Tavo Nielson on 07-10-2025 Immature granulocytes/100 WBC (Bld) 0.800 % 0.0-0.9 [facility] Comment on above: IG% - Immature Granu locytes (promyelocytes, myelocytes and metamyelocytes) > 1% indicates that a LEFT SHIFT is Present. Monocyte percentageOrdered B y: Tavo Nielson on 07-10-2025 Monocytes/100 WBC (Bld) 9.5 % 0-10 [facility] Neutrophil percentageOrdered By: Tavo Nielson on 07-10-2025 Neutrophils/100 WBC (Bld) 59.1 % 47-70 [facility] Nucleated red blood cell per centageOrdered By: Tavo Nielson on 07-10-2025 Nucleated RBC/100 WBC (Bld) [Ratio] 0 % 0-5 [facility] TSH DL <= 0.005 mIU/L QnOrde red By: Asya Hernandez on 07-10-2025 TSH Qn 15.900 uIU/mL High 0.300-4.200 [facility] Thyroid Stim Hormone (TSH)on 07-10-2025 TSH 15.900 uIU/mL High 0.300-4.200 [facility] Comment on above: Order Comment: Comme nts: Add onto previous labs if possible Performed By: #### L 501.080 #### [facility] Laboratory [address] [place], [address] 12 Lead EKGon 07-09-2025 12 Lead EKG [facility] Cardiovascular Services [address] [place] [address] 12 Lead EKG 07/09/25 1640 MR#: [id number] Acct: [id number] Name: SAMANTHA ROMERO Rep #: [id number] : 1965 59 From: Ed Barraza MD Attending Dr: Dr. Asya Hernandez MD Status: ADM IN Ordering Dr: Niranjan Leblanc DO Date: 07/09/25 Location: [facility] Sex: F C Admitted: 07/09/25 Test Reason : SOB Blood Pressure : */* mmHG Vent. Rate : 70 BPM Atrial Rate : 70 BPM P-R Int : 202 ms QRS Dur : 100 ms QT Int : 428 ms P-R-T Axes : 18 2 36 degrees QTcB Int : 462 ms Normal sinus rhythm Normal ECG Confirmed by ED BARRAZA MD ([id number]), development editor ALICJA DE LA PAZ ([id number]) on 07/11/2025 1:21:20 PM Referred By: Confirmed By: ED BARRAZA MD 07/11/25 1321 Date Ed Barraza MD CC: Dr. Sarina Adams MD; Dr. Asya Hernandez MD; Dr. Niranjan Leblanc DO Signed Normal [facility] Absolute lymphocyte countOrd ered By: Niranjan Leblanc on 07-09-2025 Lymphocytes Auto (Unsp spec) [#/Vol] 0.84 10*3/uL 0.83-4.51 [facility] Absolute neutrophil countOrd ered By: Niranjan Leblanc on 07-09-2025 Neutrophils (Bld) [#/Vol] 3.9 10*3/uL 2.0-7.7 [facility] Anion gap in Serum or Plasma Ordered By: Niranjan Leblanc on 07-09-2025 Anion gap [Moles/Vol] 10 mmol/L 5-15 [facility] Automated lymphocyte count a s percentage of total leukocytesOrdered By: Niranjan Leblanc on 07-09-2025 Lymphocytes/100 WBC Auto (Unsp spec) 15.5 % Low 19-41 [facility] BUN/creatinine ratioOrdered By: Niranjan Leblanc on 07-09-2025 Urea nitrogen/Creatinine [Mass ratio] 26.6 mg/mg High 07-23 [facility] Basic Metabolic Profile (BMP )on 07-09-2025 BUN/CRE 26.6 RATIO High 07-23 [facility] Comment on above: Performed By: #### L 503.7505, L500.2500 #### [facility] Laboratory [address] [place], [address] Calcium [Mass/Vol] 9.0 mg/dL Normal 7.6-11.0 [facility] Comment on above: Performed By: #### L 503.7505, L500.2500 #### [facility] Laboratory [address] [place], [address] Chloride [Moles/Vol] 107 mmol/L Normal 98-[address] [facility] Comment on above: Performed By: #### L 503.7505, L500.2500 #### [facility] Laboratory [address] [place], [address] CO2 [Moles/Vol] 26.4 mmol/L Normal 21.0-32.0 [facility] Comment on above: Performed By: #### L 503.7505, L500.2500 #### [facility] Laboratory [address] [place], [address] Creatinine [Mass/Vol] 1.15 mg/dL Normal 0.70-1.20 [facility] Comment on above: Performed By: #### L 503.7505, L500.2500 #### [facility] Laboratory [address], [address] ECRCL 66.59 ml/min Normal 50-250 [facility] Comment on above: Performed By: #### L 503.7505, L500.2500 #### [facility] Laboratory [address] [place], [address] GAP 10 Normal 5-15 [facility] Comment on above: Performed By: #### L 503.7505, L500.2500 #### [facility] Laboratory [address] [place], [address] GFR/1.73 sq M.predicted among non-blacks MDRD (S/P/Bld) [Vol rate/Area] 55 mL/min/{1.73_m2} Low >60 [facility] Comment on above: Result Comment: mL/m in/1.73m2 CKD-EPI Creatinine Equation (2020) Performed By: #### L 503.7505, L500.2500 #### [facility] Laboratory [address] [place], [address] Glucose [Mass/Vol] 225 mg/dL High 70-99 [facility] Comment on above: Performed By: #### L 503.7505, L500.2500 #### [facility] Laboratory [address] [place], [address] Potassium [Moles/Vol] 4.6 mmol/L Normal 3.3-5.1 [facility] Comment on above: Performed By: #### L 503.7505, L500.2500 #### [facility] Laboratory [address] [place], [address] Sodium [Moles/Vol] 143 mmol/L Normal 133-145 [facility] Comment on above: Performed By: #### L 503.7505, L500.2500 #### [facility] Laboratory [address] [place], [address] Urea nitrogen [Mass/Vol] 31 mg/dL High 4-19 [facility] Comment on above: Performed By: #### L 503.7505, L500.2500 #### [facility] Laboratory [address] [place], [address] Basophil percentageOrdered B y: Niranjan Leblanc on 07-09-2025 Basophils/100 WBC (Bld) 0.4 % 0-1 [facility] Bedside Glucoseon 07-09-2025 FINGERSTICK GLU 210 mg/dL High 74-106 [facility] Comment on above: Result Comment: BRADEN PAZ OF PATIENT CARE PER NURSING PROTOCOL Performed By: #### L 501.080 #### [facility] Laboratory [address] [place], [address] CBC W/Diff, Automatedon Absolute Lymph 0.84 X10 3/uL Normal 0.83-4.51 [facility] Comment on above: Performed By: #### L 100.0100, L503.6005, L500.4050 #### [facility] Laboratory [address], [address] Absolute Neut 3.9 X10 3/uL Normal 2.0-7.7 [facility] Comment on above: Performed By: #### L 100.0100, L503.6005, L500.4050 #### [facility] Laboratory [address] [place], [address] Basophils/100 WBC (Bld) 0.4 % Normal 0-1 [facility] Comment on above: Performed By: #### L 100.0100, L503.6005, L500.4050 #### [facility] Laboratory [address] [place], [address] Eosinophils/100 WBC (Bld) 4.4 % Normal 0-5 [facility] Comment on above: Performed By: #### L 100.0100, L503.6005, L500.4050 #### [facility] Laboratory [address] [place], [address] Erythrocyte distribution width (RBC) [Ratio] 15.1 % High 11.6-14.6 [facility] Comment on above: Performed By: #### L 100.0100, L503.6005, L500.4050 #### [facility] Laboratory [address] [place], [address] Hematocrit (Bld) [Volume fraction] 35.9 % Low 37-47 [facility] Comment on above: Performed By: #### L 100.0100, L503.6005, L500.4050 #### [facility] Laboratory [address] [place], [address] Hemoglobin (Bld) [Mass/Vol] 11.0 g/dL Low 12.0-15.0 [facility] Comment on above: Performed By: #### L 100.0100, L503.6005, L500.4050 #### [facility] Laboratory [address] [place], [address] IG% 0.700 Normal 0.0-0.9 [facility] Comment on above: Result Comment: IG% - Immature Granulocytes (promyelocytes, myelocytes and metamyelocytes) > 1% indicates that a LEFT SHIFT is Present. Performed By: #### L 100.0100, L503.6005, L500.4050 #### [facility] Laboratory [address] [place], [address] Lymphocytes/100 WBC (Bld) 15.5 % Low 19-41 [facility] Comment on above: Performed By: #### L 100.0100, L503.6005, L500.4050 #### [facility] Laboratory [address] [place], [address] MCH (RBC) [Entitic mass] 27.8 pg Normal 27.0-32.0 [facility] Comment on above: Performed By: #### L 100.0100, L503.6005, L500.4050 #### [facility] Laboratory [address] [place], [address] MCHC (RBC) [Mass/Vol] 30.6 g/dL Low 32-36 [facility] Comment on above: Performed By: #### L 100.0100, L503.6005, L500.4050 #### [facility] Laboratory [address] [place], [address] MCV (RBC) [Entitic vol] 90.9 fL Normal 81-99 [facility] Comment on above: Performed By: #### L 100.0100, L503.6005, L500.4050 #### [facility] Laboratory [address] [place], [address] Monocytes/100 WBC (Bld) 7.2 % Normal 0-10 [facility] Comment on above: Performed By: #### L 100.0100, L503.6005, L500.4050 #### [facility] Laboratory [address] [place], [address] Neutrophils/100 WBC (Bld) 71.8 % High 47-70 [facility] Comment on above: Performed By: #### L 100.0100, L503.6005, L500.4050 #### [facility] Laboratory [address] [place], [address] Nucleated RBC (Bld) [#/Vol] 0 10*3/uL Normal 0-5 [facility] Comment on above: Performed By: #### L 100.0100, L503.6005, L500.4050 #### [facility] Laboratory [address] [place], [address] Platelet mean volume (Bld) [Entitic vol] 11.2 fL Normal 6.2-12.0 [facility] Comment on above: Performed By: #### L 100.0100, L503.6005, L500.4050 #### [facility] Laboratory [address] [place], [address] Platelets (Bld) [#/Vol] 131 10*3/uL Low 150-450 [facility] Comment on above: Performed By: #### L 100.0100, L503.6005, L500.4050 #### [facility] Laboratory [address] [place], [address] RBC (Bld) [#/Vol] 3.95 10*6/uL Low 4.2-5.4 [facility] Comment on above: Performed By: #### L 100.0100, L503.6005, L500.4050 #### [facility] Laboratory [address] [place], [address] RDW SD 50.4 fl High 35.1-43.9 [facility] Comment on above: Performed By: #### L 100.0100, L503.6005, L500.4050 #### [facility] Laboratory [address] [place], [address] WBC (Bld) [#/Vol] 5.4 10*3/uL Normal 4.4-11.0 [facility] Comment on above: Performed By: #### L 100.0100, L503.6005, L500.4050 #### [facility] Laboratory [address] [place], [address] CNOVon 07-09-2025 CNOV Office Visit (PULWS ) -------- SAMANTHA ROMERO ([id number]) 1965 F Date Time Provider Department 07/09/25 [...] (MED OFFICE) - ECG COMPLETE Kay Paredes APRN.MANAGER APPOINTMENT July 09, 2025 3:45 PM -------- History [...] recent c (more content not included)... Normal [facility] CT LUNG SCREEN WO IVCONon CT LUNG SCREEN WO IVCON * * *Final Repor t* * * DATE OF EXAM: Jul 09 2025 2:17PM [facility] 0562 - CT LUNG SCREEN WO IVCON [...] without contrast. MQ: CTLCS_6 Patient characteristics: * Weqj-iw-Uejtg: 1965; Age at exam: 59 years * Gender: Female * Lung Disease: Asymptomatic (no signs or symptoms of lung disease) * Number of Pack Years: 30 * Current smoker (=0) or Number of Years since Quit: 12 * Ordering provider and NPI: ALICJA WALSH [id number] * Interpreting radiologist and NPI: Chaim [id number] Exam acquisition parameters: * Exam Date: 07/09/2025 2:17 PM * Site: [facility] * * CT System Dressmaking Teacher: Siemens * CT System Model: Sensation * [...] moderate-sized pericardial effusion. Unchanged splenomegaly. === Reference: [employer] [place] [employer]. Lung CT Screening Reporting and Data System (Lung-RADS (more content not included)... Normal [facility] Carbon dioxide, total [Moles /volume] in Central venous bloodOrdered By: Niranjan Leblanc on 07-09-2025 CO2 [Moles/Vol] 26.4 mmol/L 21.0-32.0 [facility] Chest PA and Lateralon 07-09 Chest PA and Lateral [facility] Imaging Services [address] [place], [place] [address] Chest PA and Lateral MR#: [id number] Acct: [id number] Name: SAMANTHA ROMERO Rep #: [id number] : 1965 F 59 From: Graham Schofield MD PCP: Dr. Sarina Adams MD Status: [facility] ER Study: Chest PA and Lateral Date of Exam: 07/09/25 Exam# [id number] Ordering Dr: Niranjan Leblanc DO PROCEDURE: CHEST [...] edema. No sizable pleural effusion. Reading Location: [facility] CC: Dr. Sarina Adams MD; Dr. Niranjan Leblanc DO Bingo Usher: Signed Normal [facility] Chloride assayOrdered By: Tyshawn Leblanc on 07-09-2025 Chloride [Moles/Vol] 107 mmol/L 98-[address] [facility] [id number] 07-09-2025 ECG01 Ventricular Rate : 7 0 BPM Atrial Rate : 70 BPM P-R Interval : 204 ms QRS Duration : 102 ms Q-T Interval : 436 ms QTC Calculation(Bazett) : 470 ms Calculated P [place] : 25 degrees Calculated R [place] : 6 degrees Calculated T [place] : 51 degrees NORMAL SINUS RHYTHM NORMAL ECG Confirmed by MD WALTON QARAB ([id number]) on 07/11/2025 11:18:09 AM NAME : SAMANTHA ROMERO PID : [id number] : 1965 Gender : Female Race : ORD : Procedure Date : Jul 09 2025 16:00:06 Edit Date : Jul 11 2025 11:18:21 Diagnosis: NORMAL SINUS RHYTHM NORMAL ECG Confirmed by MD WALTON QARAB ([id number]) on 07/11/2025 11:18:09 AM Test Reason : Location : 136 : [facility] Overread By : MD WALTON QARAB Edited By : MD WALTON QARAB Referred By : KAY JAVIER Acquired by : Karena MCKINNON [facility] Echo Completeon 07-09-2025 Echo Complete [facility] Cardiovascular Services [address] [place] [address] Echo Complete 07/10/25 0841 MR#: [id number] Acct: [id number] Name: SAMANTHA ROMERO Rep #: [id number] : 1965 59 From: Ed Barraza MD Attending Dr: Dr. Asya Hernandez MD Status: ADM IN Ordering Dr: Tavo Nielson DO Date: 07/09/25 Location: [facility] Sex: F C Admitted: 07/09/25 Reason [...] sec Doppler Measurements Calculations MV E max ricardo: 108.5 cm/sec [...] Date Dictated: 07/10/25 0841 Date Transcribed: 07/10/251102 Bingo Usher: Signed Normal [facility] Emergency Department Summary on 07-09-2025 Emergency Department Summary [facility] Medical Records Department [address] [place] [address] Emergency Department Summary 07/09/25 MR#: [id number] Acct: [id number] Name: SAMANTHA ROMERO Rep #: [id number] : 1965 59 From: Niranjan Leblanc DO PCP: Dr. Sarina Adams MD Status:[facility] ER Location: ED HPI History of Present [...] the emergency department to be further evaluated. [facility] Medical History COVID History of hypothyroidism Type [...] tingling Musculos (more content not included)... Normal [facility] Eosinophil percentageOrdered By: Niranjan Leblanc on 07-09-2025 Eosinophils/100 WBC (Bld) 4.4 % 0-5 [facility] Erythrocyte distribution wid th ratioOrdered By: Niranjan Leblanc on 07-09-2025 Erythrocyte distribution width (RBC) [Ratio] 15.1 % High 11.6-14.6 [facility] Erythrocyte distribution wid th standard deviationOrdered By: Niranjan Leblanc on 07-09-2025 Erythrocyte distribution width (RBC) [Ratio] 50.4 fl High 35.1-43.9 [facility] Glomerular filtration rate ( GFR) estimation/1.73 sq m using serum, plasma, or whole bOrdered By: Niranjan Leblanc on 07-09-2025 GFR/1.73 sq M.predicted among non-blacks MDRD (S/P/Bld) [Vol rate/Area] 55 mL/min/{1.73_m2} Low >60 [facility] Comment on above: mL/min/1.73m2 CKD-EP I Creatinine Equation (2020) H AND P Exam - [facility] 07-09-2025 H&P Exam - Hospitalist [facility] Medical Records Department [address] [place] [address] H P Exam - Hospitalist 07/09/25 1834 MR#: [id number] Acct: [id number] Name: SAMANTHA ROMERO Rep #: [id number] : 1965 59 From: Tavo Nielson DO PCP: Dr. Sarina Adams MD Status:ADM IN Location: [place] [id number] HPI - General General Date of Service: 07/09/25 Chief Complaint: Shortness of breath HPI Narrative SAMANTHA ROMERO, is a 59 F who presents with shortness of breath. This is a 59-year-old female who is on oxygen since having COVID 4-1/2 years ago. 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 [ ] [facility] Medical History COVID History of hypothyroidism Type [...] Breath R (more content not included)... Normal [facility] Hematocrit Auto (Bld) [Volum e fraction]Ordered By: Niranjan Leblanc on 07-09-2025 Hematocrit (Bld) [Volume fraction] 35.9 % Low 37-47 [facility] Hemoglobin measurementOrdere d By: Niranjan Leblanc on 07-09-2025 Hemoglobin (Bld) [Mass/Vol] 11.0 g/dL Low 12.0-15.0 [facility] Immature granulocytes/100 WB C Auto (Bld)Ordered By: Niranjan Leblanc on 07-09-2025 Immature granulocytes/100 WBC (Bld) 0.700 % 0.0-0.9 [facility] Comment on above: IG% - Immature Granu locytes (promyelocytes, myelocytes and metamyelocytes) > 1% indicates that a LEFT SHIFT is Present. MCV (mean corpuscular volume ) determinationOrdered By: Niranjan Leblanc on 07-09-2025 MCV (RBC) [Entitic vol] 90.9 fL 81-99 [facility] Mean corpuscular hemoglobin (MCH) determinationOrdered By: Niranjan Leblanc on 07-09-2025 MCH (RBC) [Entitic mass] 27.8 pg 27.0-32.0 [facility] Mean corpuscular hemoglobin concentration (MCHC) determinationOrdered By: Niranjan Leblanc on 07-09-2025 MCHC (RBC) [Mass/Vol] 30.6 g/dL Low 32-36 [facility] Mean platelet volume determi nationOrdered By: Niranjan Leblanc on 07-09-2025 Platelet mean volume (Bld) [Entitic vol] 11.2 fL 6.2-12.0 [facility] Monocyte percentageOrdered B y: Niranjan Leblanc on 07-09-2025 Monocytes/100 WBC (Bld) 7.2 % 0-10 [facility] NT-proBNP SerPl-mCncon 07-09 Natriuretic peptide.B prohormone N-Terminal [Mass/Vol] 220 pg/mL High <125 [facility] Comment on above: Order Comment: Speci men Type: BLOOD SPECIMENOrdering Facility: [facility] Address: [address] [place], [place] [address] Performed By: #### 3 3762-6 ####[facility] LABCLIA [id number] [place] [id number] [place] Natriuretic peptide.B prohor nicole N-Terminal [Mass/volume] in Serum or PlasmaOrdered By: Niranjan Leblanc on 07-09-2025 Natriuretic peptide.B prohormone N-Terminal [Mass/Vol] 237 pg/mL <900 [facility] Comment on above: Heart Failure Unlike ly: < 300 pg/mLHeart Failure Likely< 50 Years: > 450 pg/mL50-75 Years: > 900 pg/mL>75 Years: > 1800 pg/mL Neutrophil percentageOrdered By: Niranjan Leblanc on 07-09-2025 Neutrophils/100 WBC (Bld) 71.8 % High 47-70 [facility] Nucleated red blood cell per centageOrdered By: Niranjan Leblanc on 07-09-2025 Nucleated RBC/100 WBC (Bld) [Ratio] 0 % 0-5 [facility] Platelet countOrdered By: Tyshawn Leblanc on 07-09-2025 Platelets (Bld) [#/Vol] 131 10*3/uL Low 150-450 [facility] Potassium measurement (mass/ volume)Ordered By: Niranjan Leblanc on 07-09-2025 Potassium (Unsp spec) [Mass/Vol] 4.6 mmol/L 3.3-5.1 [facility] Pro- Brain NATRIURETIC PEPTI Harvey 07-09-2025 Natriuretic peptide B (Bld) [Mass/Vol] 237 pg/mL Normal <=900 [facility] Comment on above: Result Comment: Hear t Failure Unlikely: < 300 pg/mL Heart Failure Likely < 50 Years: > 450 pg/mL 50-75 Years: > 900 pg/mL >75 Years: > 1800 pg/mL Performed By: #### L 503.7505, L500.2500 #### [facility] [address] [place], [place], [id number] RBC Auto (Bld) [#/Vol]Ordere d By: Niranjan Leblanc on 07-09-2025 RBC (Bld) [#/Vol] 3.95 10*6/uL Low 4.2-5.4 [facility] Serum creatinine measurement (mass/volume)Ordered By: Niranjan Leblanc on 07-09-2025 Creatinine [Mass/Vol] 1.15 mg/dL 0.70-1.20 [facility] Serum glucose measurement (m ass/volume)Ordered By: Niranjan Leblanc on 07-09-2025 Glucose [Mass/Vol] 225 mg/dL High 70-99 [facility] Serum or plasma calcium brando urement (mass/volume)Ordered By: Niranjan Leblanc on 07-09-2025 Calcium [Mass/Vol] 9.0 mg/dL 7.6-11.0 [facility] Serum or plasma urea nitroge n measurement (mass/volume)Ordered By: Niranjan Leblanc on 07-09-2025 Urea nitrogen [Mass/Vol] 31 mg/dL High 4-19 [facility] Sodium levelOrdered By: Pb Leblanc on 07-09-2025 Sodium [Moles/Vol] 143 mmol/L 133-145 [facility] White blood cell (WBC) count Ordered By: Niranjan Leblanc on 07-09-2025 WBC (Bld) [#/Vol] 5.4 10*3/uL 4.4-11.0 [facility] CNOVon 07-03-2025 CNOV Office Visit (INTMWS ) -------- ROMEROEMERITAKate Manning ([id number]) 1965 F Date Time Provider Department 07/03/25 3:20 PM DENISE ALVARADO INTMWS During your visit today, we recorded the following information about you: Pulse Respiration Blood pressure Weight 64/minute 20/minute 125/76 114.2 kg Denise Alvarado APRN.FELLING MACHINE OPERATOR 07/09/2025 4:34 PM Addendum Subjective Patient ID: [...] Pain: - Chronic back pain managed with [place] and gabapentin. - Pain exacerbated by prolonged standing, such as doing dishes. - Requests refill for [place], due on the or . - Reports [...] - 4.00 k/uL 1.19 0.85 (L) 1.26 White% % 8.1 11.1 5.9 Abs White <0.87 k/uL 0.43 0.45 0.42 Eosin% % 4.5 3.2 3.3 Abs Eosin <0.46 k/uL 0.24 0.13 0.23 Baso% % 0.4 0.5 0.4 Abs Baso <0.11 k/uL <0.03 <0.03 0.03 Immature Gran % % 0.8 0.5 0.4 IMMATURE GRANS (ABS) <0.10 k/uL 0.04 <0.03 0.03 NRBC /1 (more content not included)... Normal [facility] Comprehensive metabolic 2000 panelon 07-03-2025 Albumin [Mass/Vol] 3.5 g/dL Low 3.9-4.9 [facility] Comment on above: Order Comment: Speci men Type: BLOOD SPECIMENOrdering Facility: [facility] Address: [address] [place] [address] Performed By: #### T [facility], [address]-0, 3024-7 ####[facility] LABCLIA [id number] [place] [address] [place] ALP [Catalytic activity/Vol] 73 U/L Normal 34-123 [facility] Comment on above: Order Comment: Speci men Type: BLOOD SPECIMENOrdering Facility: [facility] Address: [address] [place] [address] Performed By: #### T FIONA, , 3024-04 ####[facility] LABCLIA [id number] [address] [place] [address] [place] ALT [Catalytic activity/Vol] 24 U/L Normal 7-38 [facility] Comment on above: Order Comment: Speci men Type: BLOOD SPECIMENOrdering Facility: [facility] Address: [address] [place] [address] Performed By: #### T FIONA, , 3024-04 ####[facility] LABCLIA [id number] [address] [address] [place] Anion gap [Moles/Vol] 11 mmol/L Normal 8-15 [facility] Comment on above: Order Comment: Speci men Type: BLOOD SPECIMENOrdering Facility: [facility] Address: [address] [place] [address] Performed By: #### T FIONA, , 3024-04 ####[facility] LABCLIA [id number] [address] [address] [place] AST [Catalytic activity/Vol] 32 U/L Normal 13-35 [facility] Comment on above: Order Comment: Speci men Type: BLOOD SPECIMENOrdering Facility: [facility] Address: [address] [place] [address] Performed By: #### T FIONA, , 3024-04 ####[facility] LABCLIA [id number] [address] [address] [place] Bilirubin [Mass/Vol] 0.2 mg/dL Normal 0.2-1.3 [facility] Comment on above: Order Comment: Speci men Type: BLOOD SPECIMENOrdering Facility: [facility] Address: [address] [place] [address] Performed By: #### T FIONA, , 3024-04 ####[facility] LABCLIA [id number] [address] [address] [place] Calcium [Mass/Vol] 9.1 mg/dL Normal 8.5-10.2 [facility] Comment on above: Order Comment: Speci men Type: BLOOD SPECIMENOrdering Facility: [facility] Address: [address] [place], [place] [address] Performed By: #### T FIONA, , 3024-04 ####[facility] LABCLIA [id number] [address] [address] [place] Chloride [Moles/Vol] 105 mmol/L Normal 98-107 [facility] Comment on above: Order Comment: Speci men Type: BLOOD SPECIMENOrdering Facility: [facility] Address: [address] [place] [address] Performed By: #### T FIONA, , 3024-04 ####[facility] LABIA [id number] [address] [address] [place] CO2 [Moles/Vol] 25 mmol/L Normal 22-30 [facility] Comment on above: Order Comment: Speci men Type: BLOOD SPECIMENOrdering Facility: [facility] Address: [address] [place] [address] Performed By: #### T FIONA, , 3024-04 ####[facility] LABIA [id number] [address] [address] [place] Creatinine [Mass/Vol] 1.29 mg/dL High 0.58-0.96 [facility] Comment on above: Order Comment: Speci men Type: BLOOD SPECIMENOrdering Facility: [facility] Address: [address] [place] [address] Performed By: #### T FIONA, , 3024-04 ####[facility] LABIA [id number] [place] [address] [place] eGFRcr SerPlBld CKD-EPI 2020 48 mL/min/1.73m??? Low >=60 [facility] Comment on above: Order Comment: Katrina pereira Type: BLOOD SPECIMENOrdering Facility: [facility] Address: [address] [place] [address] Result Comment: Angelica mated Glomerular Filtration Rate [...] reflect actual GFR. Performed By: #### T [facility], [address]-4, 3023-7 ####[facility] [id number] [place] [address] [place] Glucose [Mass/Vol] 222 mg/dL High 74-99 [facility] Comment on above: Order Comment: Katrina pereira Type: BLOOD SPECIMENOrdering Facility: [facility] Address: [address] [place] [address] Result Comment: The [place] Diabetes Association (ADA) provides guidance for cutoff [...] Standards of Medical Care in Diabetes 2016, [place] Diabetes Association. Diabetes Care. 2016.39(Suppl 1). Performed By: #### T [facility], [address]-9, 7 ####[facility] LABIA [id number] [address] [place] [address] [place] Potassium [Moles/Vol] 4.2 mmol/L Normal 3.7-5.1 [facility] Comment on above: Order Comment: Speci men Type: BLOOD SPECIMENOrdering Facility: [facility] Address: [address] [place], [place] [address] Performed By: #### T FIONA, 64735-9, 3024-04 ####[facility] LABCLIA [id number] [address] [place] [address] [place] Protein [Mass/Vol] 6.4 g/dL Normal 6.3-8.0 [facility] Comment on above: Order Comment: Speci men Type: BLOOD SPECIMENOrdering Facility: [facility] Address: [address] [place], [place] [address] Performed By: #### T FIONA, , 3024-04 ####[facility] LABCLIA [id number] [address] [address] [place] Sodium [Moles/Vol] 141 mmol/L Normal 136-144 [facility] Comment on above: Order Comment: Speci men Type: BLOOD SPECIMENOrdering Facility: [facility] Address: [address] [place] [address] Performed By: #### T FIONA, 53203-5, 3024-04 ####[facility] LABCLIA [id number] [address] [place] [address] [place] Urea nitrogen [Mass/Vol] 38 mg/dL High 7-21 [facility] Comment on above: Order Comment: Speci men Type: BLOOD SPECIMENOrdering Facility: [facility] Address: [address] [place], [place] [address] Performed By: #### T FIONA, 13621-6, 3024-04 ####[facility] LABCLIA [id number] [address] [place] [address] [place] HbA1c (Bld)on 07-03-2025 Average glucose Estimated from glycated hemoglobin (Bld) [Mass/Vol] 197 mg/dL Normal [facility] Comment on above: Order Comment: Katrina pereira Type: BLOOD SPECIMENOrdering Facility: [facility] Address: [address] [place] [address] Result Comment: eAG: (Estimated average glucose) is a calculated value from HgbA1c and is area representative of the average blood glucose level in the last 2-3 month period. Performed By: #### 5 5454-3 ####[facility] LABCLIA [id number] [place] [address] [place] HbA1c (Bld) [Mass fraction] 8.5 % High 4.3-5.6 [facility] Comment on above: Order Comment: Katrina pereira Type: BLOOD SPECIMENOrdering Facility: [facility] Address: [address] [place] [address] Result Comment: [place] Diabetes Association guidelines indicate that patients with HgbA1c in the range 5.7-6.4% are at increased risk for development of diabetes, and intervention by lifestyle modification may be beneficial. HgbA1c greater or equal to 6.5% is considered diagnostic of diabetes. Performed By: #### 5 5454-3 ####[facility] LABIA [id number] [place] [address] [place] T4 Free SerPl-mCncon 025 Free T4 [Mass/Vol] 1.5 ng/dL Normal 0.9-1.7 [facility] Comment on above: Order Comment: Katrina pereira Type: BLOOD SPECIMENOrdering Facility: [facility] Address: [address] [place] [address] Performed By: #### T [facility], 155[address]-1, 3024-7 ####[facility] LABCLIA [id number] [place] [address] [place] TSH W/REFLEX FT4on 5 TSH Qn 17.200 m[IU]/L High 0.270-4.200 [facility] Comment on above: Order Comment: Speci men Type: BLOOD SPECIMENOrdering Facility: [facility] Address: [address] [place], [place] [address] Performed By: #### T [facility], 03253-5, 3024-7 ####[facility] LABCLIA [id number] [address] [address] [place] Basic metabolic 2000 panelon 05-29-2025 Anion gap [Moles/Vol] 12 mmol/L Normal 8-15 [facility] Comment on above: Order Comment: Speci men Type: BLOOD SPECIMENOrdering Facility: [facility] Address: [address] [place] [address] Performed By: #### 2 4321-2 ####[facility] LABCLIA [id number] [address] [address] [place] Calcium [Mass/Vol] 9.8 mg/dL Normal 8.5-10.2 [facility] Comment on above: Order Comment: Speci men Type: BLOOD SPECIMENOrdering Facility: [facility] Address: [address] [place], [place] [address] Performed By: #### 2 4321-2 ####[facility] LABCLIA [id number] [address] [address] [place] Chloride [Moles/Vol] 102 mmol/L Normal 98-107 [facility] Comment on above: Order Comment: Speci men Type: BLOOD SPECIMENOrdering Facility: [facility] Address: [address] [place], [place] [address] Performed By: #### 2 4321-2 ####[facility] LABCLIA [id number] [address] [address] [place] CO2 [Moles/Vol] 29 mmol/L Normal 22-30 [facility] Comment on above: Order Comment: Speci men Type: BLOOD SPECIMENOrdering Facility: [facility] Address: [address] [place], [place] [address] Performed By: #### 2 4321-2 ####[facility] LABCLIA [id number] [address] [address] [place] Creatinine [Mass/Vol] 1.34 mg/dL High 0.58-0.96 [facility] Comment on above: Order Comment: Katrina men Type: BLOOD SPECIMENOrdering Facility: [facility] Address: [address] [place] [address] Performed By: #### 2 4321-2 ####[facility] LABIA [id number] [address] [address] [place] eGFRcr SerPlBld CKD-EPI 2020 46 mL/min/1.73m??? Low >=60 [facility] Comment on above: Order Comment: Lovei men Type: BLOOD SPECIMENOrdering Facility: [facility] Address: [address] [place] [address] Result Comment: Angelica mated Glomerular Filtration Rate [...] Performed By: #### 2 4321-2 ####[facility] LABIA [id number] [address] [address] [place] Glucose [Mass/Vol] 178 mg/dL High 74-99 [facility] Comment on above: Order Comment: Speci men Type: BLOOD SPECIMENOrdering Facility: [facility] Address: [address] [place] [address] Result Comment: The [place] Diabetes Association (ADA) provides guidance for cutoff [...] Standards of Medical Care in Diabetes 2016, [place] Diabetes Association. Diabetes Care. 2016.39(Suppl 1). Performed By: #### 2 4321-2 ####[facility] LABCLIA [id number] [place] [address] [place] Potassium [Moles/Vol] 3.8 mmol/L Normal 3.7-5.1 [facility] Comment on above: Order Comment: Speci men Type: BLOOD SPECIMENOrdering Facility: [facility] Address: [address] [place] [address] Performed By: #### 2 4321-2 ####[facility] LABIA [id number] [place] [address] [place] Sodium [Moles/Vol] 143 mmol/L Normal 136-144 [facility] Comment on above: Order Comment: Speci randall Type: BLOOD SPECIMENOrdering Facility: [facility] Address: [address] [place] [address] Performed By: #### 2 4321-2 ####[facility] LABIA [id number] [place] [address] [place] Urea nitrogen [Mass/Vol] 40 mg/dL High 7-21 [facility] Comment on above: Order Comment: Speci men Type: BLOOD SPECIMENOrdering Facility: [facility] Address: [address] [place] [address] Performed By: #### 2 4321-2 ####[facility] LABIA [id number] [place] [address] [place] CBC W Auto Differential pane l (Bld)on 05-29-2025 Basophils (Bld) [#/Vol] 0.03 10*3/uL Normal <0.11 [facility] Comment on above: Order Comment: Speci men Type: BLOOD SPECIMENOrdering Facility: [facility] Address: [address] [place] [address] Performed By: #### 5 7021-8 ####[facility] LABCLIA [id number] [place] [address] [place] Basophils/100 WBC (Bld) 0.4 % Normal [facility] Comment on above: Order Comment: Speci men Type: BLOOD SPECIMENOrdering Facility: [facility] Address: [address] [place] [address] Performed By: #### 5 7021-8 ####[facility] LABCLIA [id number] [place] [address] [place] Differential cell count method Nom (Bld) Auto Normal [facility] Comment on above: Order Comment: Speci men Type: BLOOD SPECIMENOrdering Facility: [facility] Address: [address] [place] [address] Performed By: #### 5 7021-8 ####[facility] LABCLIA [id number] [place] [address] [place] Eosinophils (Bld) [#/Vol] 0.23 10*3/uL Normal <0.46 [facility] Comment on above: Order Comment: Speci men Type: BLOOD SPECIMENOrdering Facility: [facility] Address: [address] [place] [address] Performed By: #### 5 7021-8 ####[facility] LABCLIA [id number] [address] [place] Eosinophils/100 WBC (Bld) 3.3 % Normal [facility] Comment on above: Order Comment: Speci men Type: BLOOD SPECIMENOrdering Facility: [facility] Address: [address] [place] [address] Performed By: #### 5 7021-8 ####[facility] LABCLIA [id number] [address] [place] Erythrocyte distribution width (RBC) [Ratio] 14.6 % Normal 11.5-15.0 [facility] Comment on above: Order Comment: Speci men Type: BLOOD SPECIMENOrdering Facility: [facility] Address: [address] [place] [address] Performed By: #### 5 7021-8 ####[facility] LABIA [id number] [place] [address] [place] Hematocrit (Bld) [Volume fraction] 38.8 % Normal 36.0-46.0 [facility] Comment on above: Order Comment: Speci men Type: BLOOD SPECIMENOrdering Facility: [facility] Address: [address] [place] [address] Performed By: #### 5 7021-8 ####[facility] LABIA [id number] [place] [address] [place] Hemoglobin (Bld) [Mass/Vol] 12.0 g/dL Normal 11.5-15.5 [facility] Comment on above: Order Comment: Speci men Type: BLOOD SPECIMENOrdering Facility: [facility] Address: [address] [place] [address] Performed By: #### 5 7021-8 ####[facility] LABIA [id number] [place] [address] [place] Immature granulocytes (Bld) [#/Vol] 0.03 10*3/uL Normal <0.10 [facility] Comment on above: Order Comment: Speci men Type: BLOOD SPECIMENOrdering Facility: [facility] Address: [address] [place] [address] Performed By: #### 5 7021-8 ####[facility] LABCLIA [id number] [place] [address] [place] Immature granulocytes/100 WBC (Bld) 0.4 % Normal [facility] Comment on above: Order Comment: Speci men Type: BLOOD SPECIMENOrdering Facility: [facility] Address: [address] [place] [address] Performed By: #### 5 7021-8 ####[facility] LABCLIA [id number] [place] [address] [place] Lymphocytes (Bld) [#/Vol] 1.26 10*3/uL Normal 1.00-4.00 [facility] Comment on above: Order Comment: Speci men Type: BLOOD SPECIMENOrdering Facility: [facility] Address: [address] [place] [address] Performed By: #### 5 7021-8 ####[facility] LABCLIA [id number] [place] [address] [place] Lymphocytes/100 WBC (Bld) 17.8 % Normal [facility] Comment on above: Order Comment: Speci men Type: BLOOD SPECIMENOrdering Facility: [facility] Address: [address] [place] [address] Performed By: #### 5 7021-8 ####[facility] LABCLIA [id number] [place] [address] [place] MCH (RBC) [Entitic mass] 28.1 pg Normal 26.0-34.0 [facility] Comment on above: Order Comment: Speci men Type: BLOOD SPECIMENOrdering Facility: [facility] Address: [address] [place] [address] Performed By: #### 5 7021-8 ####[facility] LABCLIA [id number] [place] [address] [place] MCHC (RBC) [Mass/Vol] 30.9 g/dL Normal 30.5-36.0 [facility] Comment on above: Order Comment: Speci men Type: BLOOD SPECIMENOrdering Facility: [facility] Address: [address] [place] [address] Performed By: #### 5 7021-8 ####[facility] LABCLIA [id number] [address] [address] [place] MCV (RBC) [Entitic vol] 90.9 fL Normal 80.0-100.[address] [facility] Comment on above: Order Comment: Speci men Type: BLOOD SPECIMENOrdering Facility: [facility] Address: [address] [place] [address] Performed By: #### 5 7021-8 ####[facility] LABCLIA [id number] [place] [address] [place] Monocytes (Bld) [#/Vol] 0.42 10*3/uL Normal <0.87 [facility] Comment on above: Order Comment: Speci men Type: BLOOD SPECIMENOrdering Facility: [facility] Address: [address] [place] [address] Performed By: #### 5 7021-8 ####[facility] LABCLIA [id number] [place] [address] [place] Monocytes/100 WBC (Bld) 5.9 % Normal C [facility] Comment on above: Order Comment: Speci men Type: BLOOD SPECIMENOrdering Facility: [facility] Address: [address] [place] [address] Performed By: #### 5 7021-8 ####[facility] LABCLIA [id number] [place] [address] [place] Neutrophils (Bld) [#/Vol] 5.09 10*3/uL Normal 1.45-7.50 [facility] Comment on above: Order Comment: Speci men Type: BLOOD SPECIMENOrdering Facility: [facility] Address: [address] [place] [address] Performed By: #### 5 7021-8 ####[facility] LABCLIA [id number] [place] [address] [place] Neutrophils/100 WBC (Bld) 72.2 % Normal [facility] Comment on above: Order Comment: Speci men Type: BLOOD SPECIMENOrdering Facility: [facility] Address: [address] [place] [address] Performed By: #### 5 7021-8 ####[facility] LABIA [id number] [address] [place] [address] [place] Nucleated RBC (Bld) [#/Vol] 10*3/uL Normal <0.01 [facility] Comment on above: Order Comment: Speci men Type: BLOOD SPECIMENOrdering Facility: [facility] Address: [address] [place] [address] Performed By: #### 5 7021-8 ####[facility] LABIA [id number] [address], [place] [address] [place] Nucleated RBC/100 WBC (Bld) [Ratio] 0.0 /100 WBC Normal [facility] Comment on above: Order Comment: Speci men Type: BLOOD SPECIMENOrdering Facility: [facility] Address: [address] [place] [address] Performed By: #### 5 7021-8 ####[facility] LABIA [id number] [place] [id number] [place] Platelet mean volume (Bld) [Entitic vol] 11.8 fL Normal 9.0-12.7 [facility] Comment on above: Order Comment: Speci men Type: BLOOD SPECIMENOrdering Facility: [facility] Address: [address] [place] [address] Performed By: #### 5 7021-8 ####[facility] LABIA [id number] [address], [facility] [place] Platelets (Bld) [#/Vol] 171 10*3/uL Normal 150-400 [facility] Comment on above: Order Comment: Speci men Type: BLOOD SPECIMENOrdering Facility: [facility] Address: [address] [place] [address] Performed By: #### 5 7021-8 ####[facility] LABIA [id number] [place] [id number] [place] RBC (Bld) [#/Vol] 4.27 10*6/uL Normal 3.90-5.20 [facility] Comment on above: Order Comment: Speci men Type: BLOOD SPECIMENOrdering Facility: [facility] Address: [address] [place] [address] Performed By: #### 5 7021-8 ####[facility] LABIA [id number] [place] [id number] [place] WBC (Bld) [#/Vol] 7.06 10*3/uL Normal 3.70-11.00 [facility] Comment on above: Order Comment: Speci men Type: BLOOD SPECIMENOrdering Facility: [facility] Address: [address] [place] [address] Performed By: #### 5 7021-8 ####[facility] LABIA [id number] [address] [place] CNOVon 05-29-2025 CNOV Office Visit (INTMWS ) -------- SAMANTHA ROMERO ([id number]) 1965 F Date Time Provider Department 05/29/25 3:00 PM DENISE ALVARADO INTMWS During your visit today, we recorded the following information about you: Pulse Respiration Blood pressure Weight 76/minute 16/minute 122/62 112.6 kg Denise Alvarado APRN.FELLING MACHINE OPERATOR 05/29/2025 3:36 PM Signed Subjective Patient ID: [...] it. 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 - Taking diabetes medication; unclear adherence Hypothyroidism. [...] 1.00 - 4.00 k/uL 1.19 0.85 (L) White% % 8.1 11.1 Abs White <0.87 k/uL 0.43 0.45 Eosin% % 4.5 [...] 1.69 Hem (more content not included)... Normal [facility] CNOVon 05-22-2025 CNOV Office Visit (INTMWS ) -------- SAMANTHA ROMERO ([id number]) 1965 F Date Time Provider Department 05/22/25 3:00 PM DENISE ALVARADO During your visit today, we recorded the following information about you: Pulse Respiration Blood pressure Weight 66/minute 16/minute 118/79 123 kg Denise Alvarado APRN.FELLING MACHINE OPERATOR 05/22/2025 3:42 PM Signed Subjective Patient ID: [...] increased dyspnea. - Scheduled to see a banking specialist and pilot plant operator in July. Hypothyroidism: - Taking 300 mcg [...] 1.00 - 4.00 k/uL 1.19 0.85 (L) White% % 8.1 11.1 Abs White <0.87 k/uL 0.43 0.45 Eosin% % 4.5 [...] lbs s (more content not included)... Normal [facility] CNCOon 04-04-2025 CNCO Letter Text Normal [facility] CBC W Auto Differential pane l (Bld)on 03-28-2025 Basophils (Bld) [#/Vol] [facility] Basophils/100 WBC (Bld) 0.5 % C [facility] Differential cell count method Nom (Bld) Auto [facility] Eosinophils (Bld) [#/Vol] 0.13 10*3/uL [facility] Eosinophils/100 WBC (Bld) 3.2 % [facility] Erythrocyte distribution width (RBC) [Ratio] 13.6 % 11.5 - 15.0 % [facility] Hematocrit (Bld) [Volume fraction] 35.5 % Low 36.0 - 46.0 % [facility] Hemoglobin (Bld) [Mass/Vol] 10.9 g/dL Low 11.5 - 15.5 g/dL [facility] Immature granulocytes (Bld) [#/Vol] [facility] Immature granulocytes/100 WBC (Bld) 0.5 % [facility] Interpretation and review of laboratory results Abnormal [facility] Lymphocytes (Bld) [#/Vol] 0.85 10*3/uL Low [facility] Lymphocytes/100 WBC (Bld) 21 % [facility] MCH (RBC) [Entitic mass] 28.4 pg 26.0 - 34.0 pg [facility] MCHC (RBC) [Mass/Vol] 30.7 g/dL 30.5 - 36.0 g/dL [facility] MCV (RBC) [Entitic vol] 92.4 fL 80.0 - 100.0 fL [facility] Monocytes (Bld) [#/Vol] 0.45 10*3/uL [facility] Monocytes/100 WBC (Bld) 11.1 % C [facility] Neutrophils (Bld) [#/Vol] 2.58 10*3/uL [facility] Neutrophils/100 WBC (Bld) 63.7 % [facility] Nucleated RBC (Bld) [#/Vol] [facility] Nucleated RBC/100 WBC (Bld) [Ratio] 0 % /100 WBC [facility] Platelet mean volume (Bld) [Entitic vol] 11.7 fL 9.0 - 12.7 fL [facility] Platelets (Bld) [#/Vol] 133 10*3/uL Low [facility] RBC (Bld) [#/Vol] 3.84 10*6/uL Low 3.90 - 5.2 0 m/uL [facility] WBC (Bld) [#/Vol] 4.05 10*3/uL [facility] Basophils (Bld) [#/Vol] 10*3/uL Normal <0.[address] [facility] Comment on above: Order Comment: Speci men Type: BLOOD SPECIMENOrdering Facility: [facility] Address: [address] [place] [address] Performed By: #### 5 7021-8 ####[facility] LABCLIA [id number] [place] [address] [place] Basophils/100 WBC (Bld) 0.5 % Normal C [facility] Comment on above: Order Comment: Speci men Type: BLOOD SPECIMENOrdering Facility: [facility] Address: [address] [place] [address] Performed By: #### 5 7021-8 ####[facility] LABCLIA [id number] [place] [address] [place] Differential cell count method Nom (Bld) Auto Normal [facility] Comment on above: Order Comment: Speci men Type: BLOOD SPECIMENOrdering Facility: [facility] Address: [address] [place] [address] Performed By: #### 5 7021-8 ####[facility] LABCLIA [id number] [place] [address] [place] Eosinophils (Bld) [#/Vol] 0.13 10*3/uL Normal <0.46 [facility] Comment on above: Order Comment: Speci men Type: BLOOD SPECIMENOrdering Facility: [facility] Address: [address] [place] [address] Performed By: #### 5 7021-8 ####[facility] LABCLIA [id number] [place] [address] [place] Eosinophils/100 WBC (Bld) 3.2 % Normal [facility] Comment on above: Order Comment: Speci men Type: BLOOD SPECIMENOrdering Facility: [facility] Address: [address] [place] [address] Performed By: #### 5 7021-8 ####[facility] LABCLIA [id number] [place] [address] [place] Erythrocyte distribution width (RBC) [Ratio] 13.6 % Normal 11.5-15.0 [facility] Comment on above: Order Comment: Speci men Type: BLOOD SPECIMENOrdering Facility: [facility] Address: [address] [place] [address] Performed By: #### 5 7021-8 ####[facility] LABCLIA [id number] [place] [address] [place] Hematocrit (Bld) [Volume fraction] 35.5 % Low 36.0-46.0 [facility] Comment on above: Order Comment: Speci men Type: BLOOD SPECIMENOrdering Facility: [facility] Address: [address] [place] [address] Performed By: #### 5 7021-8 ####[facility] LABCLIA [id number] [place] [address] [place] Hemoglobin (Bld) [Mass/Vol] 10.9 g/dL Low 11.5-15.5 [facility] Comment on above: Order Comment: Speci men Type: BLOOD SPECIMENOrdering Facility: [facility] Address: [address] [place] [address] Performed By: #### 5 7021-8 ####[facility] LABCLIA [id number] [place] [id number] [place] Immature granulocytes (Bld) [#/Vol] 10*3/uL Normal <0.10 [facility] Comment on above: Order Comment: Speci men Type: BLOOD SPECIMENOrdering Facility: [facility] Address: [address] [place] [address] Performed By: #### 5 7021-8 ####[facility] LABCLIA [id number] [place] [address] [place] Immature granulocytes/100 WBC (Bld) 0.5 % Normal [facility] Comment on above: Order Comment: Speci men Type: BLOOD SPECIMENOrdering Facility: [facility] Address: [address] [place] [address] Performed By: #### 5 7021-8 ####[facility] LABIA [id number] [place] [address] [place] Lymphocytes (Bld) [#/Vol] 0.85 10*3/uL Low 1.00-4.00 [facility] Comment on above: Order Comment: Speci men Type: BLOOD SPECIMENOrdering Facility: [facility] Address: [address] [place] [address] Performed By: #### 5 7021-8 ####[facility] LABIA [id number] [address] [place] Lymphocytes/100 WBC (Bld) 21.0 % Normal [facility] Comment on above: Order Comment: Speci men Type: BLOOD SPECIMENOrdering Facility: [facility] Address: [address] [place] [address] Performed By: #### 5 7021-8 ####[facility] LABIA [id number] [place] [address] [place] MCH (RBC) [Entitic mass] 28.4 pg Normal 26.0-34.0 [facility] Comment on above: Order Comment: Speci men Type: BLOOD SPECIMENOrdering Facility: [facility] Address: [address] [place] [address] Performed By: #### 5 7021-8 ####[facility] LABCLIA [id number] [place] [address] [place] MCHC (RBC) [Mass/Vol] 30.7 g/dL Normal 30.5-36.0 [facility] Comment on above: Order Comment: Speci men Type: BLOOD SPECIMENOrdering Facility: [facility] Address: [address] [place] [address] Performed By: #### 5 7021-8 ####[facility] LABCLIA [id number] [place] [address] [place] MCV (RBC) [Entitic vol] 92.4 fL Normal 80.0-100.[address] [facility] Comment on above: Order Comment: Speci men Type: BLOOD SPECIMENOrdering Facility: [facility] Address: [address] [place] [address] Performed By: #### 5 7021-8 ####[facility] LABIA [id number] [place] [address] [place] Monocytes (Bld) [#/Vol] 0.45 10*3/uL Normal <0.87 [facility] Comment on above: Order Comment: Speci men Type: BLOOD SPECIMENOrdering Facility: [facility] Address: [address] [place] [address] Performed By: #### 5 7021-8 ####[facility] LABCLIA [id number] [address] [place] Monocytes/100 WBC (Bld) 11.1 % Normal C [facility] Comment on above: Order Comment: Speci men Type: BLOOD SPECIMENOrdering Facility: [facility] Address: [address] [place] [address] Performed By: #### 5 7021-8 ####[facility] LABIA [id number] [place] [address] [place] Neutrophils (Bld) [#/Vol] 2.58 10*3/uL Normal 1.45-7.50 [facility] Comment on above: Order Comment: Speci men Type: BLOOD SPECIMENOrdering Facility: [facility] Address: [address] [place] [address] Performed By: #### 5 7021-8 ####[facility] LABCLIA [id number] [place] [address] [place] Neutrophils/100 WBC (Bld) 63.7 % Normal [facility] Comment on above: Order Comment: Speci men Type: BLOOD SPECIMENOrdering Facility: [facility] Address: [address] [place] [address] Performed By: #### 5 7021-8 ####[facility] LABCLIA [id number] [place] [address] [place] Nucleated RBC (Bld) [#/Vol] 10*3/uL Normal <0.01 [facility] Comment on above: Order Comment: Speci men Type: BLOOD SPECIMENOrdering Facility: [facility] Address: [address] [place] [address] Performed By: #### 5 7021-8 ####[facility] LABIA [id number] [place] [address] [place] Nucleated RBC/100 WBC (Bld) [Ratio] 0.0 /100 WBC Normal [facility] Comment on above: Order Comment: Speci men Type: BLOOD SPECIMENOrdering Facility: [facility] Address: [address] [place] [address] Performed By: #### 5 7021-8 ####[facility] LABCLIA [id number] [place] [address] [place] Platelet mean volume (Bld) [Entitic vol] 11.7 fL Normal 9.0-12.7 [facility] Comment on above: Order Comment: Speci men Type: BLOOD SPECIMENOrdering Facility: [facility] Address: [address] [place] [address] Performed By: #### 5 7021-8 ####[facility] LABIA [id number] [place] [address] [place] Platelets (Bld) [#/Vol] 133 10*3/uL Low 150-400 [facility] Comment on above: Order Comment: Speci men Type: BLOOD SPECIMENOrdering Facility: [facility] Address: [address] [place] [address] Performed By: #### 5 7021-8 ####[facility] LABIA [id number] [place] [address] [place] RBC (Bld) [#/Vol] 3.84 10*6/uL Low 3.90-5.20 [facility] Comment on above: Order Comment: Speci men Type: BLOOD SPECIMENOrdering Facility: [facility] Address: [address] [place] [address] Performed By: #### 5 7021-8 ####[facility] LABIA [id number] [place] [address] [place] WBC (Bld) [#/Vol] 4.05 10*3/uL Normal 3.70-11.00 [facility] Comment on above: Order Comment: Speci men Type: BLOOD SPECIMENOrdering Facility: [facility] Address: [address] [place] [address] Performed By: #### 5 7021-8 ####[facility] LABIA [id number] [place] [id number] [facility] [place] CNOVon 03-28-2025 CNOV Office Visit (INTMWS ) -------- SAMANTHA ROMERO ([id number]) 1965 F Date Time Provider Department 03/28/25 3:00 PM COLE BOWER During your visit today, we recorded the following information about you: Pulse Blood pressure Weight 73/minute 112/54 112.5 kg Cole Bower APRN.MANAGER APPOINTMENT 03/28/2025 3:55 PM Signed SUBJECTIVE Samantha Romero [...] to maintain mobility. She is currently taking [place] for pain management, which she reports is [...] metOLazone (ZAROX (more content not included)... Normal [facility] SAMANTHA ROMERO ([id number]) 1965 F Date Time Provider Department 03/28/25 SARINA ADAMS INTWS During your visit today, we recorded the following information about you: Nida Hamilton LPN 03/28/2025 3:55 PM Signed Need PA done on Tresiba rx, was transferred from [employer] to [employer]. Needs PA because of the high dose 80 units daily at bedtime. She is blocked could not fax a PA or send electronic PA request to the office. PRIOR AUTHORIZATION Medication for Prior Authorization: Tresiba Other formulary meds available : NO Insurance Company: [facility] [employer] phone number: [phone] Patient insurance ID number: [id number] GARIMA Jefferson Janice, LPN 03/28/2025 4:13 PM [...] Date Reviewed: 03/28/2025 Reviewed by: Cole Bower APRN.MANAGER APPOINTMENT - Fully Assessed Reason for Visit: Insurance Authorization [[id number]] Prescriptions as of 03/29/2025 - potassium chloride [...] mouth at bedtime as needed. - Insulin Catarina, Disposable, (DROPLET PEN NEEDLE) 31 gauge x [...] 03-28-2025 Albumin [Mass/Vol] 3.7 g/dL Low 3.9-4.9 [facility] Comment on above: Order Comment: Speci men Type: BLOOD SPECIMENOrdering Facility: [facility] Address: [address] [place] [address] Performed By: #### 3 024-7, 3051-0, 79463-5, 3016-3 ####[facility] LABCLIA [id number] [place] [address] [place] ALP [Catalytic activity/Vol] 65 U/L Normal 34-123 [facility] Comment on above: Order Comment: Speci men Type: BLOOD SPECIMENOrdering Facility: [facility] Address: [address] [place] [address] Performed By: #### 3 024-7, 3051-0, 67489-4, 3016-3 ####[facility] LABCLIA [id number] [place] [address] [place] ALT [Catalytic activity/Vol] 20 U/L Normal 7-38 [facility] Comment on above: Order Comment: Speci men Type: BLOOD SPECIMENOrdering Facility: [facility] Address: [address] [place] [address] Performed By: #### 3 024-7, 3051-0, 95145-5, 3016-3 ####[facility] LABCLIA [id number] [place] [id number] [place] Anion gap [Moles/Vol] 13 mmol/L Normal 8-15 [facility] Comment on above: Order Comment: Speci men Type: BLOOD SPECIMENOrdering Facility: [facility] Address: [address] [place] [address] Performed By: #### 3 024-7, 3051-0, 08461-0, 3016-3 ####[facility] LABCLIA [id number] [address] [address] [place] AST [Catalytic activity/Vol] 23 U/L Normal 13-35 [facility] Comment on above: Order Comment: Speci men Type: BLOOD SPECIMENOrdering Facility: [facility] Address: [address] [place] [address] Performed By: #### 3 024-7, 3051-0, 96861-3, 3016-3 ####[facility] LABCLIA [id number] [place] [address] [place] Bilirubin [Mass/Vol] 0.2 mg/dL Normal 0.2-1.3 [facility] Comment on above: Order Comment: Speci men Type: BLOOD SPECIMENOrdering Facility: [facility] Address: [address] [place] [address] Performed By: #### 3 024-7, 3051-0, 42612-8, 3016-3 ####[facility] LABCLIA [id number] [place] [address] [place] Calcium [Mass/Vol] 9.1 mg/dL Normal 8.5-10.2 [facility] Comment on above: Order Comment: Speci men Type: BLOOD SPECIMENOrdering Facility: [facility] Address: [address] [place] [address] Performed By: #### 3 024-7, 3051-0, 36087-7, 3016-3 ####[facility] LABCLIA [id number] [place] [address] [place] Chloride [Moles/Vol] 100 mmol/L Normal 98-107 [facility] Comment on above: Order Comment: Speci men Type: BLOOD SPECIMENOrdering Facility: [facility] Address: [address] [place] [address] Performed By: #### 3 024-7, 3051-0, 60061-0, 3016-3 ####[facility] LABCLIA [id number] [place] [address] [place] CO2 [Moles/Vol] 27 mmol/L Normal 22-30 [facility] Comment on above: Order Comment: Speci men Type: BLOOD SPECIMENOrdering Facility: [facility] Address: [address] [place] [address] Performed By: #### 3 024-7, 3051-0, 92768-6, 3016-3 ####[facility] LABCLIA [id number] [place] [address] [place] Creatinine [Mass/Vol] 1.42 mg/dL High 0.58-0.96 [facility] Comment on above: Order Comment: Speci men Type: BLOOD SPECIMENOrdering Facility: [facility] Address: [address] [place] [address] Performed By: #### 3 024-7, 3051-0, 64895-0, 6-3 ####[facility] LABIA [id number] [place] [address] [place] Creatinine and Glomerular filtration rate.predicted panel (S/P/Bld) 43 mL/min/1.73m??? Low >=60 [facility] Comment on above: Order Comment: Katrina pereira Type: BLOOD SPECIMENOrdering Facility: [facility] Address: [address] [place] [address] Result Comment: Angelica mated Glomerular Filtration Rate [...] GFR. Performed By: #### 3 024-7, 3051-0, 36572-8, 3016-3 ####[facility] LABCLIA [id number] [address] [address] [place] Glucose [Mass/Vol] 266 mg/dL High 74-99 [facility] Comment on above: Order Comment: Lovei men Type: BLOOD SPECIMENOrdering Facility: [facility] Address: [address] [place] [address] Result Comment: The [place] Diabetes Association (ADA) provides guidance for cutoff [...] Standards of Medical Care in Diabetes 2016, [place] Diabetes Association. Diabetes Care. 2016.39(Suppl 1). Performed By: #### 3 024-7, 3051-0, 04951-0, 3016-3 ####[facility] LABIA [id number] [place] [address] [place] Potassium [Moles/Vol] 3.9 mmol/L Normal 3.7-5.1 [facility] Comment on above: Order Comment: Katrina pereira Type: BLOOD SPECIMENOrdering Facility: [facility] Address: [address] [place] [address] Performed By: #### 3 024-7, 3051-0, 56883-0, 3016-3 ####[facility] LABIA [id number] [place] [address] [place] Protein [Mass/Vol] 6.6 g/dL Normal 6.3-8.0 [facility] Comment on above: Order Comment: Lovei men Type: BLOOD SPECIMENOrdering Facility: [facility] Address: [address] [place] [address] Performed By: #### 3 024-7, 3051-0, 74771-7, 3016-3 ####[facility] LABCLIA [id number] [place] [id number] [place] Sodium [Moles/Vol] 140 mmol/L Normal 136-144 [facility] Comment on above: Order Comment: Katrina pereira Type: BLOOD SPECIMENOrdering Facility: [facility] Address: [address] [place] [address] Performed By: #### 3 024-7, 3051-0, 89120-7, 3016-3 ####[facility] LABCLIA [id number] [place] [address] [place] Urea nitrogen [Mass/Vol] 35 mg/dL High 7-21 [facility] Comment on above: Order Comment: Katrina pereira Type: BLOOD SPECIMENOrdering Facility: [facility] Address: [address] [place] [address] Performed By: #### 3 024-7, 3051-0, 12643-3, 3016-3 ####[facility] LABIA [id number] [place] [address] [place] HbA1c (Bld)on 03-28-2025 Average glucose Estimated from glycated hemoglobin (Bld) [Mass/Vol] 240 mg/dL Normal [facility] Comment on above: Order Comment: Katrina pereira Type: BLOOD SPECIMENOrdering Facility: [facility] Address: [address] [place] [address] Result Comment: eAG: (Estimated average glucose) is a calculated value from HgbA1c and is area representative of the average blood glucose level in the last 2-3 month period. Performed By: #### 5 5454-3 ####[facility] LABIA [id number] [place] [address] [place] HbA1c (Bld) [Mass fraction] 10.0 % High 4.3-5.6 [facility] Comment on above: Order Comment: Katrina pereira Type: BLOOD SPECIMENOrdering Facility: [facility] Address: [address] [place] [address] Result Comment: [place] Diabetes Association guidelines indicate that patients with HgbA1c in the range 5.7-6.4% are at increased risk for development of diabetes, and intervention by lifestyle modification may be beneficial. HgbA1c greater or equal to 6.5% is considered diagnostic of diabetes. Performed By: #### 5 5454-3 ####[facility] LABCLIA [id number] [place] [address] [place] T3Free SerPl-mCncon 20 25 Free T3 [Mass/Vol] 1.5 pg/mL Low 2.3-4.1 [facility] Comment on above: Order Comment: Speci men Type: BLOOD SPECIMENOrdering Facility: [facility] Address: [address] [place] [address] Performed By: #### 3 024-7, 305-0, 03317-9, 6-3 ####[facility] [facility] [id number] [place] [address] [place] T4 Free SerPl-mCncon 2 025 Free T4 [Mass/Vol] 0.7 ng/dL Low 0.9-1.7 [facility] Comment on above: Order Comment: Speci men Type: BLOOD SPECIMENOrdering Facility: [facility] Address: [address] [place] [address] Performed By: #### 3 024-7, 305-0, 58159-1, 6-3 ####[facility] LABIA [id number] [address] [place] TSH SerPl-aCncon 03-28-2025 TSH Qn 60.600 m[IU]/L High 0.270-4.200 [facility] Comment on above: Order Comment: Speci men Type: BLOOD SPECIMENOrdering Facility: [facility] Address: [address] [place] [address] Performed By: #### 3 024-7, 3051-0, 74593-2, 6-3 ####[facility] LABIA [id number] [place] [address] [facility] Kelvin 02-28-2025 CNPN Telephone (INTMWS) -------- SAMANTHA ROMERO ([id number]) 1965 F Date Time Provider Department 02/28/25 SRAINA ADAMS INTKerriWS During your visit today, we recorded the following information about you: Sadie Perez 02/28/2025 3:54 PM Signed Samantha is a patient of Sarnia Adams MD today she has questions due [...] non-symptom based questions: Thank you for calling [facility], your call will be returned within the [...] mouth at bedtime as needed. - Insulin Catarina, Disposable, (DROPLET PEN NEEDLE) 31 gauge x [...] cap Ta (more content not included)... [facility] SAMANTHA ROMERO ([id number]) 1965 F Date Time Provider Department 12/11/24 [...] mL) injection Class: Normal Route: SUBCUTANEOUS Order: [id number] E-Prescribing Status: Receipt confirmed by pharmacy (12/08/2024 2:54 PM EST) Prior authorization: Closed - Other Per Pharmacy, they told patient this medication requires prior authorization, please call insurance. Patient is requesting a follow up call regarding this. Patient has been identified by name and birthdate. Duration of symptoms: N/A Person calling: self Call patient at: on cell [phone] (home) [phone] (cell) Was an appointment scheduled: No Closing statement: Prior Authorization Calls: Thank you for calling [facility], your call will be returned within the next 24 hours or next business day. Rosana Saez MA 12/11/2024 11:16 AM Signed Prior Authorization has been completed online at [employer] for [employer], will await response. FONTANEZ- [id number] [...] Date Reviewed: 12/08/2024 Reviewed by: Zane, Mara, RIM TECHNICIAN - Fully Assessed Reason for Visit: Insurance [...] - Feno (more content not included)... Normal [facility] CNOVon 12-08-2024 CNOV Office Visit (INTMWS ) -------- SAMANTHA ROMERO Kerri ([id number]) 1965 F Date Time Provider Department 12/08/24 2:00 PM DENISE ALVARADO INTMWS During your visit today, we recorded the following information about you: Pulse Blood pressure Weight 74/minute 115/67 113.9 kg Denise Alvarado APRN.FELLING MACHINE OPERATOR 12/08/2024 3:02 PM Signed Subjective ?Quick Links [...] hydrOXYzine HCl (ATARAX) 25 mg tablet Insulin Catarina, Disposable, (DROPLET PEN NEEDLE) 31 gauge x [...] to support your medical decision making. : [facility] 04/27/2016 Physical Exam Vitals and nursing note [...] Mental status is at baseline. Latest Ref [facility] 12/06/2024 WBC 3.70 - 11.00 k/uL 5.33 [...] Abs Lymph 1.00 - 4.00 k/uL 1.19 White% % 8.1 Abs White <0.87 k/uL 0.43 Eosin% % 4.5 Abs Eosin <0.46 k/uL 0.24 Baso% % 0.4 Abs Baso <0.11 k/uL <0.03 Immature Gran % % 0.8 IMMATURE GRANS (ABS) <0.10 k/uL 0.04 NRBC /100 WBC 0.0 Absolute nRBC <0.01 k/uL <0.01 DTYPE Auto Color Yellow Yellow Clarity Clear Clear Glucose, Urine Negative 3+ ! Bilirubin, Urine Negative Negative Ketones, Urine Negative Negative Specific [place], Ur 1.005 - 1.030 1.025 Hemoglobin/Blood,Ur Negative Trace ! pH, Urine <8.5 7.0 Protein, Urine Negative 3+ ! Urobilinogen 0. (more content not included)... Normal [facility] Prot 24h Ur-mRateon 12-09-19 25 Protein (24H U) [Mass/Time] 6.24 g/24 Hr High <0.15 [facility] Comment on above: Order Comment: Speci men Type: URINE SPECIMENOrdering Facility: [facility] Address: [address] [place] [address] Result Comment: Adul t Proteinuria Categories: <0.15 g/24 hours is considered normal to mildly increased 0.15 - 0.50 g/24 hours is considered moderately increased >0.50 g/24 hours is considered severely increased KDIGO. (2013). KDIGO 2012 Clinical Practice Guideline for the Evaluation and Management of Chronic Kidney Disease. Official Journal of the International Society of Nephrology, 3(1), 1-150. Performed By: #### 2 889-4 ####[facility] LABORATORYCLIA [id number] [place] Protein (24H U) [Mass/Time]o n 12-08-2024 PERIOD (HRS) 24 hr Normal [facility] Comment on above: Order Comment: Speci men Type: URINE SPECIMENOrdering Facility: [facility] Address: [address] [place] [address] Performed By: #### 2 889-4 ####[facility] LABORATORYCLIA [id number] [place] [id number] [place] Specimen volume (24H U) 2.7 L Normal [facility] Comment on above: Order Comment: Speci men Type: URINE SPECIMENOrdering Facility: [facility] Address: [address] [place] [address] Performed By: #### 2 889-4 ####[facility] LABORATORYCLIA [id number] [place] [address] [place] CBC W Auto Differential pane l (Bld)on 12-06-2024 Basophils (Bld) [#/Vol] 10*3/uL Normal <0.[address] [facility] Comment on above: Order Comment: Speci men Type: BLOOD SPECIMENOrdering Facility: [facility] Address: [address] [place] [address] Performed By: #### 5 7021-8 ####[facility] MILLWWALIA [id number] [address] [place] Basophils/100 WBC (Bld) 0.4 % Normal C [facility] Comment on above: Order Comment: Speci men Type: BLOOD SPECIMENOrdering Facility: [facility] Address: [address] [place] [address] Performed By: #### 5 7021-8 ####[facility]OSPITALKAYLEIGHA [id number] [address] STATES OF [facility] Differential cell count method Nom (Bld) Auto Normal [facility] Comment on above: Order Comment: Speci men Type: BLOOD SPECIMENOrdering Facility: [facility] Address: [address] [place] [address] Performed By: #### 5 7021-8 ####[facility] [id number] [place] [address] [place] Eosinophils (Bld) [#/Vol] 0.24 10*3/uL Normal <0.46 [facility] Comment on above: Order Comment: Speci men Type: BLOOD SPECIMENOrdering Facility: [facility] Address: [address] [place] [address] Performed By: #### 5 7021-8 ####[facility] HOSPITALLIA [id number] [place] [address] [place] Eosinophils/100 WBC (Bld) 4.5 % Normal [facility] Comment on above: Order Comment: Speci men Type: BLOOD SPECIMENOrdering Facility: [facility] Address: [address] [place] [address] Performed By: #### 5 7021-8 ####[facility] ALEXI [id number] [place] [address] [place] Erythrocyte distribution width (RBC) [Ratio] 14.3 % Normal 11.5-15.0 [facility] Comment on above: Order Comment: Speci men Type: BLOOD SPECIMENOrdering Facility: [facility] Address: [address] [place] [address] Performed By: #### 5 7021-8 ####[facility] MIKHAILSTRASBURGKAYLEIGHERICKA [id number] [place] [address] [place] Hematocrit (Bld) [Volume fraction] 36.7 % Normal 36.0-46.0 [facility] Comment on above: Order Comment: Speci men Type: BLOOD SPECIMENOrdering Facility: [facility] Address: [address] [place] [address] Performed By: #### 5 7021-8 ####[facility] HOSPITALDELMYA [id number] [place] [address] [place] Hemoglobin (Bld) [Mass/Vol] 11.4 g/dL Low 11.5-15.5 [facility] Comment on above: Order Comment: Speci men Type: BLOOD SPECIMENOrdering Facility: [facility] Address: [address] [place] [address] Performed By: #### 5 7021-8 ####[facility] HOSPITALKAYLEIGHLI [id number] [place] [address] [place] Immature granulocytes (Bld) [#/Vol] 0.04 10*3/uL Normal <0.10 [facility] Comment on above: Order Comment: Speci men Type: BLOOD SPECIMENOrdering Facility: [facility] Address: [address] [place] [address] Performed By: #### 5 7021-8 ####[facility] HOSPITALNCLIA [id number] [place] [address] [place] Immature granulocytes/100 WBC (Bld) 0.8 % Normal [facility] Comment on above: Order Comment: Speci men Type: BLOOD SPECIMENOrdering Facility: [facility] Address: [address] [place] [address] Performed By: #### 5 7021-8 ####[facility] [id number] [place] [address] [place] Lymphocytes (Bld) [#/Vol] 1.19 10*3/uL Normal 1.00-4.00 [facility] Comment on above: Order Comment: Speci men Type: BLOOD SPECIMENOrdering Facility: [facility] Address: [address] [place] [address] Performed By: #### 5 7021-8 ####[facility] [id number] [place] [address] [place] Lymphocytes/100 WBC (Bld) 22.3 % Normal [facility] Comment on above: Order Comment: Speci men Type: BLOOD SPECIMENOrdering Facility: [facility] Address: [address] [place] [address] Performed By: #### 5 7021-8 ####[facility] HOSPITALNCLI [id number] [place] [address] [place] MCH (RBC) [Entitic mass] 28.5 pg Normal 26.0-34.0 [facility] Comment on above: Order Comment: Speci men Type: BLOOD SPECIMENOrdering Facility: [facility] Address: [address] [place] [address] Performed By: #### 5 7021-8 ####[facility] HOSPITALNCLIA [id number] [place] [address] [place] MCHC (RBC) [Mass/Vol] 31.1 g/dL Normal 30.5-36.0 [facility] Comment on above: Order Comment: Speci men Type: BLOOD SPECIMENOrdering Facility: [facility] Address: [address] [place] [address] Performed By: #### 5 7021-8 ####[facility] [id number] [place] [address] [place] MCV (RBC) [Entitic vol] 91.8 fL Normal 80.0-100.[address] [facility] Comment on above: Order Comment: Speci men Type: BLOOD SPECIMENOrdering Facility: [facility] Address: [address] [place] [address] Performed By: #### 5 7021-8 ####[facility] [id number] [place] [address] [place] Monocytes (Bld) [#/Vol] 0.43 10*3/uL Normal <0.87 [facility] Comment on above: Order Comment: Speci men Type: BLOOD SPECIMENOrdering Facility: [facility] Address: [address] [place] [address] Performed By: #### 5 7021-8 ####[facility] [id number] [place] [address] [place] Monocytes/100 WBC (Bld) 8.1 % Normal C [facility] Comment on above: Order Comment: Speci men Type: BLOOD SPECIMENOrdering Facility: [facility] Address: [address] [place] [address] Performed By: #### 5 7021-8 ####[facility] [id number] [place] [address] [place] Neutrophils (Bld) [#/Vol] 3.41 10*3/uL Normal 1.45-7.50 [facility] Comment on above: Order Comment: Speci men Type: BLOOD SPECIMENOrdering Facility: [facility] Address: [address] [place] [address] Performed By: #### 5 7021-8 ####[facility] MIKHAILABIMBOLA [id number] [place] [address] [place] Neutrophils/100 WBC (Bld) 63.9 % Normal [facility] Comment on above: Order Comment: Speci men Type: BLOOD SPECIMENOrdering Facility: [facility] Address: [address] [place] [address] Performed By: #### 5 7021-8 ####[facility]PITALKAYLEIGHTIMPANOGOS [facility] [id number] [place] [address] [place] Nucleated RBC (Bld) [#/Vol] 10*3/uL Normal <0.01 [facility] Comment on above: Order Comment: Speci men Type: BLOOD SPECIMENOrdering Facility: [facility] Address: [address] [place] [address] Performed By: #### 5 7021-8 ####[facility] HOSPITALNCJuan [id number] [place] [address] [place] Nucleated RBC/100 WBC (Bld) [Ratio] 0.0 /100 WBC Normal [facility] Comment on above: Order Comment: Speci men Type: BLOOD SPECIMENOrdering Facility: [facility] Address: [address] [place] [address] Performed By: #### 5 7021-8 ####[facility] [id number] [place] [address] [place] Platelet mean volume (Bld) [Entitic vol] 11.9 fL Normal 9.0-12.7 [facility] Comment on above: Order Comment: Speci men Type: BLOOD SPECIMENOrdering Facility: [facility] Address: [address] [place] [address] Performed By: #### 5 7021-8 ####[facility] HOSPITALWNCLIA [id number] [place] [address] [place] Platelets (Bld) [#/Vol] 133 10*3/uL Low 150-400 [facility] Comment on above: Order Comment: Speci men Type: BLOOD SPECIMENOrdering Facility: [facility] Address: [address] [place] [address] Performed By: #### 5 7021-8 ####[facility] HOSPITALNCLIA [id number] [place] [address] [place] RBC (Bld) [#/Vol] 4.00 10*6/uL Normal 3.90-5.20 [facility] Comment on above: Order Comment: Speci men Type: BLOOD SPECIMENOrdering Facility: [facility] Address: [address] [place] [address] Performed By: #### 5 7021-8 ####[facility] HOSPITALNCLIA [id number] [place] [address] [place] WBC (Bld) [#/Vol] 5.33 10*3/uL Normal 3.70-11.00 [facility] Comment on above: Order Comment: Speci men Type: BLOOD SPECIMENOrdering Facility: [facility] Address: [address] [place] [address] Performed By: #### 5 7021-8 ####[facility] HOSPITALNCLIA [id number] [place] [address] [place] CNOVon 12-06-2024 CNOV Office Visit (PULMWS ) -------- SAMANTHA ROMERO ([id number]) 1965 F Date Time Provider Department 12/06/24 [...] 1 tablet by mouth once daily. Insulin Catarina, Disposable, (DROPLET PEN NEEDLE) 31 gauge x [...] 4 t (more content not included)... Normal [facility] Comprehensive metabolic 2000 panelon 12-06-2024 Albumin [Mass/Vol] 3.5 g/dL Low 3.9-4.9 [facility] Comment on above: Order Comment: Speci men Type: BLOOD SPECIMENOrdering Facility: [facility] Address: [address] [place] [address] Performed By: #### 2 4323-8 ####[facility] [id number] [place] [address] [place] ALP [Catalytic activity/Vol] 76 U/L Normal 34-123 [facility] Comment on above: Order Comment: Speci men Type: BLOOD SPECIMENOrdering Facility: [facility] Address: [address] [place] [address] Performed By: #### 2 4323-8 ####[facility] [id number] [place] [address] [place] ALT [Catalytic activity/Vol] 30 U/L Normal 7-38 [facility] Comment on above: Order Comment: Speci men Type: BLOOD SPECIMENOrdering Facility: [facility] Address: [address] [place] [address] Performed By: #### 2 4323-8 ####[facility] MILLTOWNCLIA [id number] [place] [address] [place] Anion gap [Moles/Vol] 6 mmol/L Low 8-15 [facility] Comment on above: Order Comment: Speci men Type: BLOOD SPECIMENOrdering Facility: [facility] Address: [address] [place] [address] Performed By: #### 2 4323-8 ####[facility] MILLWNCLIA [id number] [place] [address] [place] AST [Catalytic activity/Vol] 27 U/L Normal 13-35 [facility] Comment on above: Order Comment: Speci men Type: BLOOD SPECIMENOrdering Facility: [facility] Address: [address] [place] [address] Performed By: #### 2 4323-8 ####[facility] HOSPITALWNCLIA [id number] [place] [address] [place] Bilirubin [Mass/Vol] mg/dL Low 0.2-1.3 [facility] Comment on above: Order Comment: Speci men Type: BLOOD SPECIMENOrdering Facility: [facility] Address: [address] [place] [address] Performed By: #### 2 4323-8 ####[facility] MILLWNCLIA [id number] [place] [address] [place] Calcium [Mass/Vol] 8.9 mg/dL Normal 8.5-10.2 [facility] Comment on above: Order Comment: Speci men Type: BLOOD SPECIMENOrdering Facility: [facility] Address: [address] [place] [address] Performed By: #### 2 4323-8 ####[facility] MILLWNCLIA [id number] [place] [address] [place] Chloride [Moles/Vol] 100 mmol/L Normal 98-107 [facility] Comment on above: Order Comment: Speci men Type: BLOOD SPECIMENOrdering Facility: [facility] Address: [address] [place] [address] Performed By: #### 2 4323-8 ####[facility]PITALNCTIMPANOGOS REGIONAL [facility] [id number] [place] [address] [place] CO2 [Moles/Vol] 33 mmol/L High 22-30 [facility] Comment on above: Order Comment: Speci men Type: BLOOD SPECIMENOrdering Facility: [facility] Address: [address] [place] [address] Performed By: #### 2 4323-8 ####[facility]PITALNCTIMPANOGOS REGIONAL [facility]PITAL [id number] [place] [address] [place] Creatinine [Mass/Vol] 1.39 mg/dL High 0.58-0.96 [facility] Comment on above: Order Comment: Speci men Type: BLOOD SPECIMENOrdering Facility: [facility] Address: [address] [place] [address] Performed By: #### 2 4323-8 ####[facility] HOSPITALNCLI [id number] [place] [address] [place] Creatinine and Glomerular filtration rate.predicted panel (S/P/Bld) 44 mL/min/1.73m??? Low >=60 [facility] Comment on above: Order Comment: Speci men Type: BLOOD SPECIMENOrdering Facility: [facility] Address: [address] [place] [address] Result Comment: Angelica mated Glomerular Filtration Rate [...] actual GFR. Performed By: #### 2 4323-8 ####[facility] MIKHAILWNCLIA [id number] [place] [address] [place] Glucose [Mass/Vol] 145 mg/dL High 74-99 [facility] Comment on above: Order Comment: Speci men Type: BLOOD SPECIMENOrdering Facility: [facility] Address: [address] [place] [address] Result Comment: The [place] Diabetes Association (ADA) provides guidance for cutoff [...] Standards of Medical Care in Diabetes 2016, [place] Diabetes Association. Diabetes Care. 2016.39(Suppl 1). Performed By: #### 2 4323-8 ####[facility] HOSPITALNCLIA [id number] [place] [address] [place] Potassium [Moles/Vol] 3.9 mmol/L Normal 3.7-5.1 [facility] Comment on above: Order Comment: Speci men Type: BLOOD SPECIMENOrdering Facility: [facility] Address: [address] [place] [address] Performed By: #### 2 4323-8 ####[facility] HOSPITALNCLIA [id number] [place] [address] [place] Protein [Mass/Vol] 6.4 g/dL Normal 6.3-8.0 [facility] Comment on above: Order Comment: Speci men Type: BLOOD SPECIMENOrdering Facility: [facility] Address: [address] [place] [address] Performed By: #### 2 4323-8 ####[facility] HOSPITALNCLIA [id number] [place] [address] [place] Sodium [Moles/Vol] 139 mmol/L Normal 136-144 [facility] Comment on above: Order Comment: Speci men Type: BLOOD SPECIMENOrdering Facility: [facility] Address: [address] [place] [address] Performed By: #### 2 4323-8 ####[facility] HOSPITALLIA [id number] [place] [address] [place] Urea nitrogen [Mass/Vol] 41 mg/dL High 7-21 [facility] Comment on above: Order Comment: Speci men Type: BLOOD SPECIMENOrdering Facility: [facility] Address: [address] [place] [address] Performed By: #### 2 4323-8 ####[facility] HOSPITALLIA [id number] [place] [address] [place] Lipid 1996 panelon 5 Cholesterol [Mass/Vol] 209 mg/dL High <200 [facility] Comment on above: Order Comment: Speci men Type: BLOOD SPECIMENOrdering Facility: [facility] Address: [address] [place] [address] Result Comment: <200 mg/dL, Desirable 200-239 mg/dL, Borderline high >239 mg/dL, High Performed By: #### 2 4331-1 ####[facility]OSPITALNCLIA [id number] [place] [address] [place]#### 704[address]-2, 3016-3 ####[facility] LABORATORYCLIA [id number] [place] [address] [place] Cholesterol in HDL [Mass/Vol] 61 mg/dL Normal >39 [facility] Comment on above: Order Comment: Speci men Type: BLOOD SPECIMENOrdering Facility: [facility] Address: [address] [place] [address] Result Comment: 40-5 9 mg/dL, Acceptable >59 mg/dL, High: Negative risk factor for coronary heart disease <40 mg/dL, Low: Positive risk factor for coronary heart disease Performed By: #### 2 4331-1 ####[facility] [id number] [address]#### [address]-4, 3016-3 ####[facility] LABORATORYCLIA [id number] [address] Cholesterol in LDL [Mass/Vol] 103 mg/dL High <100 [facility] Comment on above: Order Comment: Katrina randall Type: BLOOD SPECIMENOrdering Facility: [facility] Address: [address] [place] [address] Result Comment: <100 mg/dL, Optimal 100-129 mg/dL, Near optimal/above optimal 130-159 mg/dL, Borderline high 160-189 mg/dL, High >189 mg/dL, Very high Secondary prevention optimal LDL Cholesterol levels are recommended to be < 70 mg/dL Performed By: #### 2 4331-1 ####[facility] [id number] [address]#### [address]-6, 3016-3 ####[facility] LABORATORYCLIA [id number] [address] Cholesterol in LDL/Cholesterol in HDL [Mass ratio] 1.69 {ratio} Normal <2.54 [facility] Comment on above: Order Comment: Katrina pereira Type: BLOOD SPECIMENOrdering Facility: [facility] Address: [address] [place] [address] Result Comment: Refe chaoce: 1. National Cholesterol Education Program ATP III Guideline At-A-Glance Quick Desk Reference: National Heart, Lung, and Blood [place]. National Institutes of Health. 2001: NIH Publication No. 01-3305. 2. An International Atherosclerosis Society position paper: global recommendations for the management of dyslipidemia: executive summary, Atherosclerosis. 2014: 232(2):410-413. Performed By: #### 2 4331-1 ####[facility] HOSPITALLIA [id number] [address] OF [place]#### [address]-9, 3016-3 ####[facility] LABORATORYCLIA [id number] [place], [place] [address] [place] [address] Cholesterol in VLDL [Mass/Vol] 45 mg/dL High <30 [facility] Comment on above: Order Comment: Speci men Type: BLOOD SPECIMENOrdering Facility: [facility] Address: [address] [place] [address] Performed By: #### 2 4331-1 ####[facility] [id number] [address]#### 10542-0, 3016-3 ####[facility] LABORATORYCLIA [id number] [address] STATES [facility] Cholesterol non HDL [Mass/Vol] 148 mg/dL High <130 [facility] Comment on above: Order Comment: Lovei men Type: BLOOD SPECIMENOrdering Facility: [facility] Address: [address] [place] [address] Result Comment: <130 mg/dL, Optimal 130-159 mg/dL, Near optimal/above optimal 160-189 mg/dL, Borderline high 190-219 mg/dL, High >219 mg/dL, Very high Secondary prevention optimal non HDL Cholesterol levels are recommended to be <100 mg/dL Performed By: #### 2 4331-1 ####[facility] [id number] [address] [place]#### 73971-8, 3016-3 ####[facility]ORATORYCLIA [id number] [place] [address] [facility] [place] Cholesterol.total/Stacy sterol in HDL [Mass ratio] 3.43 {ratio} Normal <5.10 [facility] Comment on above: Order Comment: Speci men Type: BLOOD SPECIMENOrdering Facility: [facility] Address: [address] [place] [address] Performed By: #### 2 4331-1 ####[facility] [id number] [place] [address] [place]#### 20867-3, 3016-3 ####[facility] LABORATORYCLIA [id number] [address] STATES [place] FASTING TIME 12 hrs Normal [facility] Comment on above: Order Comment: Speci men Type: BLOOD SPECIMENOrdering Facility: [facility] Address: [address] [place] [address] Performed By: #### 2 4331-1 ####[facility] [id number] [address]#### 94478-0, 3016-3 ####[facility]ORATORYCLIA [id number] [address] STATES [facility] Triglyceride [Mass/Vol] 224 mg/dL High <[address] [facility] Comment on above: Order Comment: Speci men Type: BLOOD SPECIMENOrdering Facility: [facility] Address: [address] [place] [address] Result Comment: <150 mg/dL, Normal 150-199 mg/dL, Borderline high 200-499 mg/dL, High >499 mg/dL, Very high Performed By: #### 2 4331-1 ####[facility]ITALLIA [id number] [place] [address] [place]#### 52149-5, 3016-3 ####[facility]ORATORYCLIA [id number] [address] STATES OF [place] NT-proBNP [facility] 12-06 Natriuretic peptide.B prohormone N-Terminal [Mass/Vol] <36 Normal <125 [facility] Comment on above: Order Comment: Speci men Type: BLOOD SPECIMENOrdering Facility: [facility] Address: [address] [place] [address] Performed By: #### 2 4331-1 ####[facility] [id number] [place] [address] [place]#### 16960-8, 3016-3 ####[facility] LABORATORYCLIA [id number] [place] [address] [place] TSH SerPl-aCncon 12-06-2024 TSH Qn 116.000 m[IU]/L High 0.270-4.200 [facility] Comment on above: Order Comment: Speci men Type: BLOOD SPECIMENOrdering Facility: [facility] Address: [address] [place] [address] Performed By: #### 2 4331-1 ####[facility] [id number] [place] [address] [place]#### 67661-1, 3016-3 ####[facility] LABORATORYCLIA [id number] [place] [address] [place] Urinalysis complete panel (U )on 12-06-2024 Bacteria LM.HPF (Urine sed) [#/Area] Negative Normal Negative [facility] Comment on above: Order Comment: Speci men Type: URINE SPECIMENOrdering Facility: [facility] Address: [address] [place] [address] Performed By: #### 2 4356-8 ####[facility] LABCLIA [id number] [place] [address] [place] Bilirubin Ql (U) Negative Normal Negative [facility] Comment on above: Order Comment: Speci men Type: URINE SPECIMENOrdering Facility: [facility] Address: [address] [place] [id number] Performed By: #### 2 4356-8 ####[facility] LABCLIA [id number] [address] [address] [place] Clarity (Unsp spec) Clear Normal Clear [facility] Comment on above: Order Comment: Speci men Type: URINE SPECIMENOrdering Facility: [facility] Address: [address] [place] [address] Performed By: #### 2 4356-8 ####[facility] LABCLIA [id number] [place] [address] [place] Color (U) Yellow Normal Yellow [facility] Comment on above: Order Comment: Speci men Type: URINE SPECIMENOrdering Facility: [facility] Address: [address] [place] [address] Performed By: #### 2 4356-8 ####[facility] LABCLIA [id number] [address], [facility] [place] Epithelial cells LM.HPF (Urine sed) [#/Area] None Seen Normal [facility] Comment on above: Order Comment: Speci men Type: URINE SPECIMENOrdering Facility: [facility] Address: [address] [place] [address] Performed By: #### 2 4356-8 ####[facility] LABCLIA [id number] [address] [address] [place] Glucose Test strip (U) [Mass/Vol] 3+ Abnormal Negative [facility] Comment on above: Order Comment: Speci men Type: URINE SPECIMENOrdering Facility: [facility] Address: [address] [place] [address] Performed By: #### 2 4356-8 ####[facility] LABCLIA [id number] [address] [place] [address] [place] Hemoglobin Ql (U) Trace Abnormal Negative [facility] Comment on above: Order Comment: Speci men Type: URINE SPECIMENOrdering Facility: [facility] Address: [address] [place] [address] Performed By: #### 2 4356-8 ####[facility] LABCLIA [id number] [address], [place] [address] [place] Hyaline casts (Urine sed) [#/Area] 0 /[LPF] Normal 0 /LPF [facility] Comment on above: Order Comment: Speci men Type: URINE SPECIMENOrdering Facility: [facility] Address: [address] [place] [address] Performed By: #### 2 4356-8 ####[facility] LABCLIA [id number] [address], [place] [address] [place] Ketones Ql (U) Negative Normal Negative [facility] Comment on above: Order Comment: Speci men Type: URINE SPECIMENOrdering Facility: [facility] Address: [address] [place] [address] Performed By: #### 2 4356-8 ####[facility] LABCLIA [id number] [place] [address] [place] Leukocyte esterase Test strip Ql (U) Negative Normal Negative [facility] Comment on above: Order Comment: Speci men Type: URINE SPECIMENOrdering Facility: [facility] Address: [address] [place] [address] Performed By: #### 2 4356-8 ####[facility] LABCLIA [id number] [place] [address] [place] Nitrite Ql (U) Negative Normal Negative [facility] Comment on above: Order Comment: Speci men Type: URINE SPECIMENOrdering Facility: [facility] Address: [address] [place] [address] Performed By: #### 2 4356-8 ####[facility] LABCLIA [id number] [place] [address] [place] pH (U) 7.0 [pH] Normal <8.5 [facility] Comment on above: Order Comment: Speci men Type: URINE SPECIMENOrdering Facility: [facility] Address: [address] [place] [address] Performed By: #### 2 4356-8 ####[facility] LABIA [id number] [place] [address] [place] Protein (U) [Mass/Vol] 3+ Abnormal Negative Cl [facility] Comment on above: Order Comment: Speci men Type: URINE SPECIMENOrdering Facility: [facility] Address: [address] [place] [address] Performed By: #### 2 4356-8 ####[facility] LABIA [id number] [place] [address] [place] RBC LM.HPF (Urine sed) [#/Area] 0-2 /HPF Normal 0-2 /HPF [facility] Comment on above: Order Comment: Speci men Type: URINE SPECIMENOrdering Facility: [facility] Address: [address] [place] [address] Performed By: #### 2 4356-8 ####[facility] CENTERIA [id number] [place] [address] [place] Specific gravity (U) [Rel density] 1.025 Normal 1.005-1.030 [facility] Comment on above: Order Comment: Speci men Type: URINE SPECIMENOrdering Facility: [facility] Address: [address] [place] [address] Performed By: #### 2 4356-8 ####[facility] LABIA [id number] [place] [address] [place] Urobilinogen Ql (U) 0.2 EU/dL Normal 0.2-1.0 EU/dL [facility] Comment on above: Order Comment: Speci men Type: URINE SPECIMENOrdering Facility: [facility] Address: [address] [place], [place] [address] Performed By: #### 2 4356-8 ####[facility] LABCLIA [id number] [place] [address] [place] WBC LM.HPF (Urine sed) [#/Area] 6-10 /HPF Abnormal 0-5 /HPF [facility] Comment on above: Order Comment: Speci men Type: URINE SPECIMENOrdering Facility: [facility] Address: [address] [place] [address] Performed By: #### 2 4356-8 ####[facility] LABCLIA [id number] [address] [place] CNOVon 11-28-2024 CNOV Office Visit (INTMWS ) -------- SAMANTHA ROMERO ([id number]) 1965 F Date Time Provider Department 11/28/24 [...] presents here Patient presents with: ER F/U: [facility] October 2024 Health Maintenance Depression Screening Anxiety [...] hydrOXYzine HCl (ATARAX) 25 mg tablet Insulin Catarina, Disposable, (DROPLET PEN NEEDLE) 31 gauge x [...] No f (more content not included)... Normal [facility] Kelvin 11-20-2024 SUNDAR Telephone (INTMWS) -------- SAMANTHA ROMERO Kerri ([id number]) 1965 F Date Time Provider Department 11/20/24 SARNIA ADAMS INTMWS During your visit today, we [...] mouth at bedtime as needed. - Insulin Catarina, Disposable, (DROPLET PEN NEEDLE) 31 gauge x [...] week. M (more content not included)... Normal [facility] Urine Cultureon 10-29-2024 URC Culture exhibits no growth. Normal [facility] Comment on above: Performed By: #### L 100.0100, L503.6005, L500.4050 #### [facility] [address] [place], [address] 12 Lead EKGon 10-27-2024 12 Lead EKG [facility] Cardiovascular Services [address] [place] [address] 12 Lead EKG 10/27/24 1735 MR#: [id number] Acct: [id number] Name: SAMANTHA ROMERO Kerri Rep #: [id number] : 1965 59 From: Jewel Delacruz MD [...] Normal ECG Confirmed by MIQUEL DUNNE, LYLY ([id number]), development editor JESSICA VILLA ([id number]) on 10/31/2024 6:06:59 AM Referred By: Confirmed By: LYLY DELACRUZ MD 10/31/24 0607 Date Jewel Delacruz MD CC: Dr. Marianela Harvey DO; Dr. Sarina Adams MD Signed Normal [facility] BNP,B-Type NATRIURETIC PEPTI Harvey 10-27-2024 Natriuretic peptide B (Bld) [Mass/Vol] 14.6 pg/mL Normal 0-100 [facility] Comment on above: Performed By: #### L 501.080 #### [facility] [address] [place], [address] CBC W/Diff, Automatedon 10-05 Absolute Lymph 1.30 X10 3/uL Normal 0.83-4.51 [facility] Comment on above: Performed By: #### L 501.080 #### [facility] [address] [place], [address] Absolute Neut 4.5 X10 3/uL Normal 2.0-7.7 [facility] Comment on above: Performed By: #### L 501.080 #### [facility] [address] [place], [address] Basophils/100 WBC (Bld) 0.2 % Normal 0-1 [facility] Comment on above: Performed By: #### L 501.080 #### [facility] [address] [place], [address] Eosinophils/100 WBC (Bld) 2.8 % Normal 0-5 [facility] Comment on above: Performed By: #### L 501.080 #### [facility] [address] [place], [address] Erythrocyte distribution width (RBC) [Ratio] 14.5 % Normal 11.6-14.6 [facility] Comment on above: Performed By: #### L 501.080 #### [facility] [address] [place], [address] Hematocrit (Bld) [Volume fraction] 38.8 % Normal 37-47 [facility] Comment on above: Performed By: #### L 501.080 #### [facility] [address] [place], [address] Hemoglobin (Bld) [Mass/Vol] 12.2 g/dL Normal 12.0-15.0 [facility] Comment on above: Performed By: #### L 501.080 #### [facility] [address] [place], [address] IG% 0.300 Normal 0.0-0.9 [facility] Comment on above: Result Comment: IG% - Immature Granulocytes (promyelocytes, myelocytes and metamyelocytes) > 1% indicates that a LEFT SHIFT is Present. Performed By: #### L 501.080 #### [facility] [address] [place], [address] Lymphocytes/100 WBC (Bld) 20.3 % Normal 19-41 [facility] Comment on above: Performed By: #### L 501.080 #### [facility] [address] [place], [address] MCH (RBC) [Entitic mass] 28.2 pg Normal 27.0-32.0 [facility] Comment on above: Performed By: #### L 501.080 #### [facility] [address] [place], [address] MCHC (RBC) [Mass/Vol] 31.4 g/dL Low 32-36 [facility] Comment on above: Performed By: #### L 501.080 #### [facility] [address] [place], [address] MCV (RBC) [Entitic vol] 89.8 fL Normal 81-99 [facility] Comment on above: Performed By: #### L 501.080 #### [facility] [address] [place], [address] Monocytes/100 WBC (Bld) 6.1 % Normal 0-10 [facility] Comment on above: Performed By: #### L 501.080 #### [facility] [address] [place], [address] Neutrophils/100 WBC (Bld) 70.3 % High 47-70 [facility] Comment on above: Performed By: #### L 501.080 #### [facility] [address] [place], [address] Nucleated RBC (Bld) [#/Vol] 0 10*3/uL Normal 0-5 [facility] Comment on above: Performed By: #### L 501.080 #### [facility] [address] [place], [address] Platelet mean volume (Bld) [Entitic vol] 10.9 fL Normal 6.2-12.0 [facility] Comment on above: Performed By: #### L 501.080 #### [facility] [address] [place], [address] Platelets (Bld) [#/Vol] 162 10*3/uL Normal 150-450 [facility] Comment on above: Performed By: #### L 501.080 #### [facility] [address] [place], [address] RBC (Bld) [#/Vol] 4.32 10*6/uL Normal 4.2-5.4 [facility] Comment on above: Performed By: #### L 501.080 #### [facility] [address] [place], [place], [address] RDW SD 47.5 fl High 35.1-43.9 [facility] Comment on above: Performed By: #### L 501.080 #### [facility] [address] [place], [address] WBC (Bld) [#/Vol] 6.4 10*3/uL Normal 4.4-11.0 [facility] Comment on above: Performed By: #### L 501.080 #### [facility] [address] [place], [address] [facility] -------- SAMANTHA ROMERO ([id number]) 1965 F Date Time Provider Department 10/27/24 TIM MCGUIRE [facility] During your visit today, we recorded the following information about you: Tim Mcguire MD 10/27/2024 8:15 PM Signed Contacted by Dr. Harvey at [facility] for patient presenting with 2+ [...] on November (more content not included)... Normal [facility] Chest PA and Lateralon 10-27 Chest PA and Lateral [facility] Imaging Services [address] [place], [place] [address] Chest PA and Lateral MR#: [id number] Acct: [id number] Name: SAMANTHA ROMERO Rep #: [id number] : 1965 F 59 From: Michael Morales MD PCP: Dr. Sarina Adams MD Status: REG ER Study: Chest PA and Lateral Date of Exam: 10/27/24 Exam# [id number] Ordering Dr: Marianela Harvey DO [id number] STUDY: X-RAY CHEST REASON FOR EXAM: Female, [...] 18:19 EST Reading Location ID and State: [facility] / [place] Tel , Service support , CC: Dr. Marianela Harvey DO; Dr. Sarina Adams MD Bingo Usher: Signed Normal [facility] Comprehensive Metabolic Prof ilon 10-27-2024 Albumin [Mass/Vol] 2.8 g/dL Low 3.2-5.0 [facility] Comment on above: Order Comment: 'TROP ' Serial specimen #1, #2 or #3: 1 Performed By: #### L 501.080 #### [facility] [address] [place], [address] Albumin/Globulin [Mass ratio] 0.7 {ratio} Low 0.9-2.4 [facility] Comment on above: Order Comment: 'TROP ' Serial specimen #1, #2 or #3: 1 Performed By: #### L 501.080 #### [facility] [address] [place], [address] ALK P 60 U/L Normal 45-117 [facility] Comment on above: Order Comment: 'TROP ' Serial specimen #1, #2 or #3: 1 Performed By: #### L 501.080 #### [facility] [address] [place], [address] ALT [Catalytic activity/Vol] 23 U/L Normal 13-56 [facility] Comment on above: Order Comment: 'TROP ' Serial specimen #1, #2 or #3: 1 Performed By: #### L 501.080 #### [facility] [address] [place], [address] AST [Catalytic activity/Vol] 23 U/L Normal 15-37 [facility] Comment on above: Order Comment: 'TROP ' Serial specimen #1, #2 or #3: 1 Performed By: #### L 501.080 #### [facility] [address] [place], [address] Bilirubin [Mass/Vol] 0.30 mg/dL Normal 0.20-1.[address] [facility] Comment on above: Order Comment: 'TROP ' Serial specimen #1, #2 or #3: 1 Result Comment: For patients on eltrombopag therapy, use of Dimension [place] TBIL is not recommended. Performed By: #### L 501.080 #### [facility] [address] [place], [address] BUN/CRE 27.0 RATIO High 10-20 [facility] Comment on above: Order Comment: 'TROP ' Serial specimen #1, #2 or #3: 1 Performed By: #### L 501.080 #### [facility] [address] [place], [address] CA,Total 9.2 mg/dL Normal 8.5-10.1 [facility] Comment on above: Order Comment: 'TROP ' Serial specimen #1, #2 or #3: 1 Performed By: #### L 501.080 #### [facility] [address] [place], [address] Chloride [Moles/Vol] 110 mmol/L High 98-[address] [facility] Comment on above: Order Comment: 'TROP ' Serial specimen #1, #2 or #3: 1 Performed By: #### L 501.080 #### [facility] [address] [place], [address] CO2 [Moles/Vol] 30.0 mmol/L Normal 21.0-32.0 [facility] Comment on above: Order Comment: 'TROP ' Serial specimen #1, #2 or #3: 1 Performed By: #### L 501.080 #### [facility] [address] [place], [address] Creatinine [Mass/Vol] 0.89 mg/dL Normal 0.55-1.02 [facility] Comment on above: Order Comment: 'TROP ' Serial specimen #1, #2 or #3: 1 Result Comment: The validity of the calculated GFR GFRAA in patients over 70 years has not been determined. Clinical correlation is essential. Performed By: #### L 501.080 #### [facility] [address] [place], [address] ECRCL 82.86 ml/min Normal [facility] Comment on above: Order Comment: 'TROP ' Serial specimen #1, #2 or #3: 1 Performed By: #### L 501.080 #### [facility] [address] [place], [address] EST GFR - AA 84 mL/min Normal >60 [facility] Comment on above: Order Comment: 'TROP ' Serial specimen #1, #2 or #3: 1 Result Comment: Afri can Citizen Of [place] GFR Calc Performed By: #### L 501.080 #### [facility] [address] [place], [address] GAP 5 Normal 5-15 [facility] Comment on above: Order Comment: 'TROP ' Serial specimen #1, #2 or #3: 1 Performed By: #### L 501.080 #### [facility] [address] [place], [address] GFR/1.73 sq M.predicted among non-blacks MDRD (S/P/Bld) [Vol rate/Area] 69 mL/min/{1.73_m2} Normal >60 [facility] Comment on above: Order Comment: 'TROP ' Serial specimen #1, #2 or #3: 1 Result Comment: Non- GFR Calc Performed By: #### L 501.080 #### [facility] [address] [place], [address] Globulin (S) [Mass/Vol] 4.1 g/dL Normal 2.2-4.2 [facility] Comment on above: Order Comment: 'TROP ' Serial specimen #1, #2 or #3: 1 Performed By: #### L 501.080 #### [facility] [address] [place], [address] Glucose [Mass/Vol] 104 mg/dL Normal 74-106 [facility] Comment on above: Order Comment: 'TROP ' Serial specimen #1, #2 or #3: 1 Result Comment: Fast ing Glucose result from 100 to 125 mg/dL suggests IMPAIRED HOMEOSTASIS per A.D.A. criteria. Performed By: #### L 501.080 #### [facility] [address] [place], [address] Potassium [Moles/Vol] 3.7 mmol/L Normal 3.5-5.1 [facility] Comment on above: Order Comment: 'TROP ' Serial specimen #1, #2 or #3: 1 Performed By: #### L 501.080 #### [facility] [address] [place], [address] Sodium [Moles/Vol] 144 mmol/L Normal 136-145 [facility] Comment on above: Order Comment: 'TROP ' Serial specimen #1, #2 or #3: 1 Performed By: #### L 501.080 #### [facility] [address] [place], [address] T PROT 6.9 g/dL Normal 6.4-8.2 [facility] Comment on above: Order Comment: 'TROP ' Serial specimen #1, #2 or #3: 1 Performed By: #### L 501.080 #### [facility] [address] [place], [address] Urea nitrogen [Mass/Vol] 24 mg/dL High 7-18 [facility] Comment on above: Order Comment: 'TROP ' Serial specimen #1, #2 or #3: 1 Performed By: #### L 501.080 #### [facility] [address] [place], [address] Emergency Department Summary on 10-27-2024 Emergency Department Summary [facility] Medical Records Department [address] [place] [address] Emergency Department Summary 10/27/24 MR#: [id number] Acct: [id number] Name: SAMANTHA ROMERO Rep #: [id number] : 1965 59 From: Marianela Harvey DO [...] while. She saw Dr. Brewster cardiology through [facility]. She was told is not from [...] complaints or concerns reported at this time. [facility] Medical History COVID History of hypothyroidism Type [...] Diarrhea Verif (more content not included)... Normal [facility] Free T3on 10-27-2024 Free T3 [Mass/Vol] 1.6 pg/mL Low 2.18-3.98 [facility] Comment on above: Performed By: #### L 100.0100, L503.6005, L500.4050 #### [facility] [address] [place], [address] L501.4020on 10-27-2024 TROPONIN-I HS 33 pg/mL Normal 3.0-54.0 [facility] Comment on above: Order Comment: 'TROP ' Serial specimen #1, #2 or #3: 1 Result Comment: Plea se Note: New Test Units and Gender Specific Reference Ranges. For more information see Policy Stat Procedure [place] High Sensitivity Troponin (TNIH) and attachments. Performed By: #### L 501.080 #### [facility] [address] [place], [address] T4 Free Directon 10-27-2024 T4 FREE DIRECT 0.57 ng/dL Low 0.76-1.46 [facility] Comment on above: Performed By: #### L 100.0100, L503.6005, L500.4050 #### [facility] [address] [place], [address] Thyroid Stim Hormone (TSH)on 10-27-2024 TSH 79.800 uIU/mL High 0.358-3.740 [facility] Comment on above: Order Comment: 'TROP ' Serial specimen #1, #2 or #3: 1 Performed By: #### L 501.080 #### [facility] [address] [place], [address] Urinalysis, Completeon 10-27 BACTERIA 1+ /hpf Normal None Seen [facility] Comment on above: Order Comment: CLEAN CATCH Performed By: #### L 100.0100, L503.6005, L500.4050 #### [facility] [address] [place], [address] EPI,SQUAMOUS 0-5 SEEN Normal 5-10 [facility] Comment on above: Order Comment: CLEAN CATCH Performed By: #### L 100.0100, L503.6005, L500.4050 #### [facility] [address] [place], [address] WBC 5-10 SEEN Normal 0-5 [facility] Comment on above: Order Comment: CLEAN CATCH Performed By: #### L 100.0100, L503.6005, L500.4050 #### [facility] [address] [place], [address] Mucus Ql (Urine sed) 0 SEEN Normal [facility] Comment on above: Order Comment: CLEAN CATCH Performed By: #### L 100.0100, L503.6005, L500.4050 #### [facility] [address] [place], [address] RBC 0 SEEN Normal 0-5 [facility] Comment on above: Order Comment: CLEAN CATCH Performed By: #### L 100.0100, L503.6005, L500.4050 #### [facility] [address] [place], [address] CNPNon 10-24-2024 [facility] Telephone (INTMWS) -------- SAMANTHA ROMERO ([id number]) 1965 F Date Time Provider Department 10/24/24 [...] and course of action. GARIMA Simon Terri, DISPATCH SUPERVISOR.FELLING MACHINE OPERATOR 10/24/2024 4:34 PM Addendum Is this documenting [...] bedtime. for (more content not included)... Normal [facility] ALBUMIN/CREATININE RATIO, UR INEon 10-16-2024 Albumin DL <= 20 mg/L (U) [Mass/Vol] 2982.4 mg/L Normal [facility] Comment on above: Order Comment: Speci men Type: URINE SPECIMENOrdering Facility: [facility] Address: [address] [place] [address] Performed By: #### U ACR ####[facility] LABCLIA [id number] [place] [address] [place] Albumin/Creatinine (U) [Mass ratio] 8546 mg/g High <30 [facility] Comment on above: Order Comment: Speci men Type: URINE SPECIMENOrdering Facility: [facility] Address: [address] [place] [address] Result Comment: Not calculated Adult Male and Female Nephrotic Criteria: <30 mg/g is considered normal to mildly increased 30-300 mg/g is considered moderately increased >300 mg/g is considered severely increased KDIGO. (2013). KDIGO 2012 Clinical Practice Guideline for the Evaluation and Management of Chronic Kidney Disease. Official Journal of the International Society of Nephrology, 3(1), 1-150. Performed By: #### U ACR ####[facility] LABCLIA [id number] [place] [address] [place] Creatinine (U) [Mass/Vol] 34.9 mg/dL Normal 20.0-300.0 [facility] Comment on above: Order Comment: Speci men Type: URINE SPECIMENOrdering Facility: [facility] Address: [address] [place] [address] Performed By: #### U ACR ####[facility] LABCLIA [id number] [address] OF [facility] CNOVon 10-16-2024 CNOV Office Visit (TON ) -------- SAMANTHA ROMERO ([id number]) 1965 F Date Time Provider Department 10/16/24 2:00 PM RAMESH BREWSTER During your visit today, we recorded the following information about you: Pulse Respiration Blood pressure Weight 72/minute 14/minute 146/70 112 kg Height 1.626 m Ramesh Brewster MD 10/16/2024 3:19 PM Signed [facility] Cardiology ([place] [address]) [address] [facility] [phone] OUTPATIENT VISIT DATE 10/16/2024 PRIMARY CARE PHYSICIAN: Sarina Adams [address] [place] [address] REFERRING PHYSICIAN: Dr. Adams HISTORY OF PRESENT [...] sensor (FREESTYLE (more content not included)... Normal [facility] Comprehensive metabolic 2000 panelon 10-16-2024 Albumin [Mass/Vol] 3.5 g/dL Low 3.9-4.9 [facility] Comment on above: Order Comment: Speci men Type: BLOOD SPECIMENOrdering Facility: [facility] Address: [address] [place] [address] Performed By: #### 2 4323-8 ####[facility] [place] MILLTOWNCLIA [id number] [place] [address] [place] ALP [Catalytic activity/Vol] 81 U/L Normal 34-123 [facility] Comment on above: Order Comment: Speci men Type: BLOOD SPECIMENOrdering Facility: [facility] Address: [address] [place] [address] Performed By: #### 2 4323-8 ####[facility] MILLTOWNCLIA [id number] [place] [address] [place] ALT [Catalytic activity/Vol] 16 U/L Normal 7-38 [facility] Comment on above: Order Comment: Speci men Type: BLOOD SPECIMENOrdering Facility: [facility] Address: [address] [place] [address] Performed By: #### 2 4323-8 ####[facility] MILLTOWNCLIA [id number] [place] [address] [place] Anion gap [Moles/Vol] 8 mmol/L Normal 8-15 [facility] Comment on above: Order Comment: Speci men Type: BLOOD SPECIMENOrdering Facility: [facility] Address: [address] [place] [address] Performed By: #### 2 4323-8 ####[facility] MILLTOWNCLIA [id number] [place] [address] [place] AST [Catalytic activity/Vol] 18 U/L Normal 13-35 [facility] Comment on above: Order Comment: Speci men Type: BLOOD SPECIMENOrdering Facility: [facility] Address: [address] [place] [address] Performed By: #### 2 4323-8 ####[facility] MILLTOWNCLIA [id number] [place] [address] [place] Bilirubin [Mass/Vol] 0.2 mg/dL Normal 0.2-1.3 [facility] Comment on above: Order Comment: Speci men Type: BLOOD SPECIMENOrdering Facility: [facility] Address: [address] [place] [address] Performed By: #### 2 4323-8 ####[facility] MILLTOWNCLIA [id number] [place] [address] [place] Calcium [Mass/Vol] 9.7 mg/dL Normal 8.5-10.2 [facility] Comment on above: Order Comment: Speci men Type: BLOOD SPECIMENOrdering Facility: [facility] Address: [address] [place] [address] Performed By: #### 2 4323-8 ####[facility]ITALWNCLIA [id number] [place] [address] [place] Chloride [Moles/Vol] 103 mmol/L Normal 98-107 [facility] Comment on above: Order Comment: Speci men Type: BLOOD SPECIMENOrdering Facility: [facility] Address: [address] [place] [address] Performed By: #### 2 4323-8 ####[facility] MILLWNCLIA [id number] [place] [address] [place] CO2 [Moles/Vol] 28 mmol/L Normal 22-30 [facility] Comment on above: Order Comment: Speci men Type: BLOOD SPECIMENOrdering Facility: [facility] Address: [address] [place] [address] Performed By: #### 2 4323-8 ####[facility] MILLTOWNCLIA [id number] [place] [address] [place] Creatinine [Mass/Vol] 1.07 mg/dL High 0.58-0.96 [facility] Comment on above: Order Comment: Katrina pereira Type: BLOOD SPECIMENOrdering Facility: [facility] Address: [address] [place] [address] Performed By: #### 2 4323-8 ####[facility] [id number] [place] [address] [place] Creatinine and Glomerular filtration rate.predicted panel (S/P/Bld) 60 mL/min/1.73m??? Normal >=60 [facility] Comment on above: Order Comment: Katrina pereira Type: BLOOD SPECIMENOrdering Facility: [facility] Address: [address] [place] [address] Result Comment: Angelica mated Glomerular Filtration Rate [...] actual GFR. Performed By: #### 2 4323-8 ####[facility] [id number] [place] [address] [place] Glucose [Mass/Vol] 303 mg/dL High 74-99 [facility] Comment on above: Order Comment: Katrina pereira Type: BLOOD SPECIMENOrdering Facility: [facility] Address: [address] [place] [address] Result Comment: The [place] Diabetes Association (ADA) provides guidance for cutoff [...] Standards of Medical Care in Diabetes 2016, [place] Diabetes Association. Diabetes Care. 2016.39(Suppl 1). Performed By: #### 2 4323-8 ####[facility] MILLBALDEMARWKAYLEIGHLIA [id number] [place] [address] [place] Potassium [Moles/Vol] 4.3 mmol/L Normal 3.7-5.1 [facility] Comment on above: Order Comment: Speci men Type: BLOOD SPECIMENOrdering Facility: [facility] Address: [address] [place] [address] Performed By: #### 2 4323-8 ####[facility] MILLJENNIFFERLIA [id number] [place] [address] [place] Protein [Mass/Vol] 6.4 g/dL Normal 6.3-8.0 [facility] Comment on above: Order Comment: Speci men Type: BLOOD SPECIMENOrdering Facility: [facility] Address: [address] [place] [address] Performed By: #### 2 4323-8 ####[facility] HOSPITALHOLLYNCLIA [id number] [place] [address] [place] Sodium [Moles/Vol] 139 mmol/L Normal 136-144 [facility] Comment on above: Order Comment: Speci men Type: BLOOD SPECIMENOrdering Facility: [facility] Address: [address] [place] [address] Performed By: #### 2 4323-8 ####[facility] MILLBALDEMARWNCLIA [id number] [place] [address] [place] Urea nitrogen [Mass/Vol] 25 mg/dL High 7-21 [facility] Comment on above: Order Comment: Speci men Type: BLOOD SPECIMENOrdering Facility: [facility] Address: [address] [place] [address] Performed By: #### 2 4323-8 ####[facility] [id number] [place] [address] [place] HbA1c (Bld)on 10-16-2024 Average glucose Estimated from glycated hemoglobin (Bld) [Mass/Vol] 217 mg/dL Normal [facility] Comment on above: Order Comment: Katrina pereira Type: BLOOD SPECIMENOrdering Facility: [facility] Address: [address] [place] [address] Result Comment: eAG: (Estimated average glucose) is a calculated value from HgbA1c and is area representative of the average blood glucose level in the last 2-3 month period. Performed By: #### 5 5454-3 ####[facility] LABIA [id number] [place] [address] [place] HbA1c (Bld) [Mass fraction] 9.2 % High 4.3-5.6 [facility] Comment on above: Order Comment: Katrina pereira Type: BLOOD SPECIMENOrdering Facility: [facility] Address: [address] [place] [address] Result Comment: [place] Diabetes Association guidelines indicate that patients with HgbA1c in the range 5.7-6.4% are at increased risk for development of diabetes, and intervention by lifestyle modification may be beneficial. HgbA1c greater or equal to 6.5% is considered diagnostic of diabetes. Performed By: #### 5 5454-3 ####[facility] LABIA [id number] [address] [place] NT-proBNP [facility] 10-16 Natriuretic peptide.B prohormone N-Terminal [Mass/Vol] 39 pg/mL Normal <125 [facility] Comment on above: Order Comment: Katrina pereira Type: BLOOD SPECIMENOrdering Facility: [facility] Address: [address] [place] [address] Performed By: #### 3 3762-6 ####[facility] LABIA [id number] [place] [address] [place] Urine Cultureon 09-21-2024 URC Escherichia coli Mamou Count >100,000 Escherichia coli: REACTION Ampicillin Islt [...] TMP SMX Islt GARTH <=20 S Normal [facility] Comment on above: Performed By: #### L 501.080 #### [facility] [address] [facility] [address] [place], [place], [address] Abdomen/Pelvis W IV Cont ONL Yon 09-19-2024 Abdomen/Pelvis W IV Cont ONLY [facility] Imaging Services [address] [place], [place] [address] Abdomen/Pelvis W IV Cont ONLY MR#: [id number] Acct: [id number] Name: SAMANTHA ROMERO Rep #: [id number] : 1965 F 59 From: Mariano Javed DO PCP: Dr. Sarina Adams MD Status: REG ER Study: Abdomen/Pelvis W IV Cont ONLY Date of Exam: Exam# [id number] Ordering Dr: John Walker MD [id number] STUDY: CT ABDOMEN AND PELVIS WITH CONTRAST [...] 18:16 EST Reading Location ID and State: [facility] / [place] Tel [phone], Service support , CC: Dr. Sarina Adams MD; Dr. John Walker MD Bingo Usher: Signed Normal [facility] CBC W/Diff, Automatedon 09-03 Absolute Lymph 1.53 X10 3/uL Normal 0.83-4.51 [facility] Comment on above: Performed By: #### L 100.0100, L503.6005, L500.4050 #### [facility] [address] [place], [address] Absolute Neut 3.5 X10 3/uL Normal 2.0-7.7 [facility] Comment on above: Performed By: #### L 100.0100, L503.6005, L500.4050 #### [facility] [address] [place], [address] Basophils/100 WBC (Bld) 0.3 % Normal 0-1 [facility] Comment on above: Performed By: #### L 100.0100, L503.6005, L500.4050 #### [facility] [address] [place], [address] Eosinophils/100 WBC (Bld) 3.4 % Normal 0-5 [facility] Comment on above: Performed By: #### L 100.0100, L503.6005, L500.4050 #### [facility] [address] [place], [address] Erythrocyte distribution width (RBC) [Ratio] 13.9 % Normal 11.6-14.6 [facility] Comment on above: Performed By: #### L 100.0100, L503.6005, L500.4050 #### [facility] [address] [place], [address] Hematocrit (Bld) [Volume fraction] 37.3 % Normal 37-47 [facility] Comment on above: Performed By: #### L 100.0100, L503.6005, L500.4050 #### [facility] [address] [place], [address] Hemoglobin (Bld) [Mass/Vol] 11.9 g/dL Low 12.0-15.0 [facility] Comment on above: Performed By: #### L 100.0100, L503.6005, L500.4050 #### [facility] [address] [place], [address] IG% 0.300 Normal 0.0-0.9 [facility] Comment on above: Result Comment: IG% - Immature Granulocytes (promyelocytes, myelocytes and metamyelocytes) > 1% indicates that a LEFT SHIFT is Present. Performed By: #### L 100.0100, L503.6005, L500.4050 #### [facility] [address] [place], [address] Lymphocytes/100 WBC (Bld) 26.2 % Normal 19-41 [facility] Comment on above: Performed By: #### L 100.0100, L503.6005, L500.4050 #### [facility] [address] [place], [address] MCH (RBC) [Entitic mass] 28.8 pg Normal 27.0-32.0 [facility] Comment on above: Performed By: #### L 100.0100, L503.6005, L500.4050 #### [facility] [address] [place], [address] MCHC (RBC) [Mass/Vol] 31.9 g/dL Low 32-36 [facility] Comment on above: Performed By: #### L 100.0100, L503.6005, L500.4050 #### [facility] [address] [place], [address] MCV (RBC) [Entitic vol] 90.3 fL Normal 81-99 [facility] Comment on above: Performed By: #### L 100.0100, L503.6005, L500.4050 #### [facility] [address] [place], [address] Monocytes/100 WBC (Bld) 9.1 % Normal 0-10 [facility] Comment on above: Performed By: #### L 100.0100, L503.6005, L500.4050 #### [facility] [address] [place], [address] Neutrophils/100 WBC (Bld) 60.7 % Normal 47-70 [facility] Comment on above: Performed By: #### L 100.0100, L503.6005, L500.4050 #### [facility] [address] [place], [address] Nucleated RBC (Bld) [#/Vol] 0 10*3/uL Normal 0-5 [facility] Comment on above: Performed By: #### L 100.0100, L503.6005, L500.4050 #### [facility] [address] [place], [address] Platelet mean volume (Bld) [Entitic vol] 11.0 fL Normal 6.2-12.0 [facility] Comment on above: Performed By: #### L 100.0100, L503.6005, L500.4050 #### [facility] [address] [place], [address] Platelets (Bld) [#/Vol] 143 10*3/uL Low 150-450 [facility] Comment on above: Performed By: #### L 100.0100, L503.6005, L500.4050 #### [facility] [address] [place], [address] RBC (Bld) [#/Vol] 4.13 10*6/uL Low 4.2-5.4 [facility] Comment on above: Performed By: #### L 100.0100, L503.6005, L500.4050 #### [facility] [address] [place], [address] RDW SD 45.8 fl High 35.1-43.9 [facility] Comment on above: Performed By: #### L 100.0100, L503.6005, L500.4050 #### [facility] [address] [place], [address] WBC (Bld) [#/Vol] 5.8 10*3/uL Normal 4.4-11.0 [facility] Comment on above: Performed By: #### L 100.0100, L503.6005, L500.4050 #### [facility] [address] [place], [address] [facility] Albumin [Mass/Vol] 3.0 g/dL Low 3.2-5.0 [facility] Comment on above: Performed By: #### L 100.0100, L503.6005, L500.4050 #### [facility] [address] [place], [address] Albumin/Globulin [Mass ratio] 0.8 {ratio} Low 0.9-2.4 [facility] Comment on above: Performed By: #### L 100.0100, L503.6005, L500.4050 #### [facility] [address] [place], [address] ALK P 60 U/L Normal 45-117 [facility] Comment on above: Performed By: #### L 100.0100, L503.6005, L500.4050 #### [facility] [address] [place], [address] ALT [Catalytic activity/Vol] 23 U/L Normal 13-56 [facility] Comment on above: Performed By: #### L 100.0100, L503.6005, L500.4050 #### [facility] [address] [place], [address] AST [Catalytic activity/Vol] 19 U/L Normal 15-37 [facility] Comment on above: Performed By: #### L 100.0100, L503.6005, L500.4050 #### [facility] [address] [place], [address] Bilirubin [Mass/Vol] 0.30 mg/dL Normal 0.20-1.[address] [facility] Comment on above: Result Comment: For patients on eltrombopag therapy, use of Dimension [place] TBIL is not recommended. Performed By: #### L 100.0100, L503.6005, L500.4050 #### [facility] [address] [place], [address] BUN/CRE 22.7 RATIO High 10-20 [facility] Comment on above: Performed By: #### L 100.0100, L503.6005, L500.4050 #### [facility] [address] [place], [address] CA,Total 8.7 mg/dL Normal 8.5-10.1 [facility] Comment on above: Performed By: #### L 100.0100, L503.6005, L500.4050 #### [facility] [address] [place], [address] Chloride [Moles/Vol] 108 mmol/L High 98-[address] [facility] Comment on above: Performed By: #### L 100.0100, L503.6005, L500.4050 #### [facility] [address] [place], [address] CO2 [Moles/Vol] 32.0 mmol/L Normal 21.0-32.0 [facility] Comment on above: Performed By: #### L 100.0100, L503.6005, L500.4050 #### [facility] [address] [place], [address] Creatinine [Mass/Vol] 1.19 mg/dL High 0.55-1.02 [facility] Comment on above: Result Comment: The validity of the calculated GFR GFRAA in patients over 70 years has not been determined. Clinical correlation is essential. Performed By: #### L 100.0100, L503.6005, L500.4050 #### [facility] [address] [place], [address] ECRCL 59.95 ml/min Normal [facility] Comment on above: Performed By: #### L 100.0100, L503.6005, L500.4050 #### [facility] [address] [place], [address] EST GFR - AA 60 mL/min Normal >60 [facility] Comment on above: Result Comment: Afri can Citizen [place] GFR Calc Performed By: #### L 100.0100, L503.6005, L500.4050 #### [facility] [address] [place], [address] GAP 2 Low 5-15 [facility] Comment on above: Performed By: #### L 100.0100, L503.6005, L500.4050 #### [facility] [address] [place], [address] GFR/1.73 sq M.predicted among non-blacks MDRD (S/P/Bld) [Vol rate/Area] 49 mL/min/{1.73_m2} Low >60 [facility] Comment on above: Result Comment: Non- GFR Calc Performed By: #### L 100.0100, L503.6005, L500.4050 #### [facility] [address] [place], [address] Globulin (S) [Mass/Vol] 3.7 g/dL Normal 2.2-4.2 [facility] Comment on above: Performed By: #### L 100.0100, L503.6005, L500.4050 #### [facility] [address] [place], [address] Glucose [Mass/Vol] 161 mg/dL High 74-106 [facility] Comment on above: Result Comment: Fast ing Glucose result greater than or equal to 126 mg/dL suggests DIABETES MELLITUS per A.D.A. criteria. Performed By: #### L 100.0100, L503.6005, L500.4050 #### [facility] [address] [place], [address] Potassium [Moles/Vol] 3.9 mmol/L Normal 3.5-5.1 [facility] Comment on above: Performed By: #### L 100.0100, L503.6005, L500.4050 #### [facility] [address] [place], [address] Sodium [Moles/Vol] 142 mmol/L Normal 136-145 [facility] Comment on above: Performed By: #### L 100.0100, L503.6005, L500.4050 #### [facility] [address] [place], [address] T PROT 6.7 g/dL Normal 6.4-8.2 [facility] Comment on above: Performed By: #### L 100.0100, L503.6005, L500.4050 #### [facility] [address] [place], [address] Urea nitrogen [Mass/Vol] 27 mg/dL High 7-18 [facility] Comment on above: Performed By: #### L 100.0100, L503.6005, L500.4050 #### [facility] [address] [place], [address] Emergency Department Summary on 09-19-2024 Emergency Department Summary [facility] Medical Records Department [address] [place] [address] Emergency Department Summary 09/19/24 MR#: [id number] Acct: [id number] Name: SAMANTHA ROMERO Rep #: [id number] : 1965 59 From: John Walker MD [...] History (Reviewe (more content not included)... Normal [facility] Lactic Acidon 09-19-2024 Lactate [Moles/Vol] 0.8 mmol/L Normal 0.4-1.9 [facility] Comment on above: Order Comment: Y Performed By: #### L 100.0100, L503.6005, L500.4050 #### [facility] [place], [address] CNPNon 08-21-2024 [facility] Telephone (FAMPST) -------- SAMANTHA ROMERO ([id number]) 1965 F Date Time Provider Department 08/21/24 SARINA ADAMS During your visit today, we recorded the following information about you: Katherin Chowdhury 08/21/2024 2:53 PM Signed Samantha is calling Sarina Adams MD today to request an order be placed for [facility] urology for the following: Adult diapers (pull up) large Large pads Per patient these ship to patient house Patient has been identified by name and birthdate. Duration of symptoms: ongoing Person calling: self Call patient at: at home [phone] (home) [phone] (cell) Was an appointment scheduled: No Closing statement: Results or non-symptom based questions: Thank you for calling [facility], your call will be returned within the next business day. Katherin Rothman [facility] Maylin Delaney LPN 08/22/2024 8:36 AM Signed [...] mouth at bedtime as needed. - Insulin Catarina, Disposable, (DROPLET PEN NEEDLE) 31 gauge x [...] reader (FREESTY (more content not included)... [facility] Should[facility] - left 2 Viewson 06-30-2024 IMPRESSION: Stable proximal humeral fracture Bingo Usher: LAUREEN Transcribe Date/Time: Jun 30 2024 7:12A [...] maintained. DIVISION OF RADIOLOGY Provider, Claire Barcenas [facility] - 06/30/2024 * * *Final Report* [...] maintained. IMPRESSION IMPRESSION: Stable proximal humeral fracture Bingo [facility] Transcribe Date/Time: Jun 30 2024 7:12A Dictated by : ROBNI BAKER MD This examination was interpreted and the report reviewed and electronically signed by: ROBIN BAKER MD on Jun 30 2024 7:13AM EST [facility] XR Shoulder - left 2 ViewsOr dered By: Ccf Provider on 06-30-2024 [facility] XR Shoulder - left 2 Viewson 06-26-2024 Radiology Study observation (narrative) Liam duarte [facility] CBC W Auto Differential pane l (Bld)on 05-16-2024 Basophils (Bld) [#/Vol] NINF C [facility] Basophils/100 WBC (Bld) 0.4 % C [facility] Differential cell count method Nom (Bld) Auto [facility] Eosinophils (Bld) [#/Vol] 0.24 10*3/uL [facility] Eosinophils/100 WBC (Bld) 5.0 % [facility] Erythrocyte distribution width (RBC) [Ratio] 13.9 % 11.5 - 15.0 % [facility] Hematocrit (Bld) [Volume fraction] 34.5 % Low 36.0 - 46.0 % [facility] Hemoglobin (Bld) [Mass/Vol] 10.7 g/dL Low 11.5 - 15.5 g/dL [facility] Immature granulocytes (Bld) [#/Vol] [facility] Immature granulocytes/100 WBC (Bld) 0.4 % [facility] Interpretation and review of laboratory results Abnormal [facility] Lymphocytes (Bld) [#/Vol] 0.84 10*3/uL Low [facility] Lymphocytes/100 WBC (Bld) 17.5 % [facility] MCH (RBC) [Entitic mass] 28.6 pg 26.0 - 34.0 pg [facility] MCHC (RBC) [Mass/Vol] 31.0 g/dL 30.5 - 36.0 g/dL [facility] MCV (RBC) [Entitic vol] 92.2 fL 80.0 - 100.0 fL [facility] Monocytes (Bld) [#/Vol] 0.29 10*3/uL [facility] Monocytes/100 WBC (Bld) 6.1 % C [facility] Neutrophils (Bld) [#/Vol] 3.38 10*3/uL [facility] Neutrophils/100 WBC (Bld) 70.6 % [facility] Nucleated RBC (Bld) [#/Vol] [facility] Nucleated RBC/100 WBC (Bld) [Ratio] 0.0 % /100 WBC [facility] Platelet mean volume (Bld) [Entitic vol] 11.6 fL 9.0 - 12.7 fL [facility] Platelets (Bld) [#/Vol] 136 10*3/uL Low [facility] RBC (Bld) [#/Vol] 3.74 10*6/uL Low 3.90 - 5.2 0 m/uL [facility] WBC (Bld) [#/Vol] 4.79 10*3/uL [facility] OXIMETRY WITH AMBULATIONon 0 05-16-2024 Aby [...] May 16, 2024 TIME: 3:11 PM Comment: [facility] UA DIP, URINE (POC)on 2023 BILIRUBIN UA (POCT) Negative Negative [facility] CLARITY UA (POCT) Cloudy [facility] COLOR UA (POCT) Light yellow [facility] GLUCOSE UA (POCT) >=1000 Abnormal Negative mg/dL [facility] Hemoglobin Ql (U) Small Abnormal Negative [facility] Interpretation and review of laboratory results Abnormal [facility] KETONE UA (POCT) Negative Negative mg/dL [facility] LEUKOCYTES UA (POCT) Small Abnormal Negative [facility] NITRITE UA (POCT) Negative Negative [facility] PH UA (POCT) 7.0 4.5 - 8.0 [facility] Protein Ql (U) 100 mg/dL Abnormal Negative [facility] SPECIFIC GRAVITY UA (POCT) 1.015 1.005 - 1.030 [facility] UROBILINOGEN UA (POCT) 0.2 Lory l E.U./dL [facility] Location:[address], [place], [address] [facility] POINT OF CARE [facility] OXIMETRY WITH AMBULATIONon 0 12-10-2023 [facility] XR Lumbar spine 3 Viewson IMPRESSION: Lumbar s pine mild degenerative changes. Bingo Usher: LAUREEN Transcribe Date/Time: Oct 28 2023 4:42P [...] spine are presented. FINDINGS: There are five [id number] lumbar vertebrae. No acute fracture or subluxations are noted. The disc spaces are well preserved. There is mild osteophyte formation. DIVISION OF RADIOLOGY Provider, Claire Barcenas [facility] - 10/28/2023 * * *Final Report* [...] spine are presented. FINDINGS: There are five [id number] lumbar vertebrae. No acute fracture or subluxations are noted. The disc spaces are well preserved. There is mild osteophyte formation. IMPRESSION IMPRESSION: Lumbar spine mild degenerative changes. Bingo Usher: PSCB Transcribe Date/Time: Oct 28 2023 4:42P Dictated by : BUNNY ATWOOD MD This examination was interpreted and the report reviewed and electronically signed by: BUNNY ATWOOD MD on Oct 28 2023 4:43PM EST [facility] Radiology Study observation (narrative) Liam Royal XR Lumbar spine 3 ViewsOrder ed By: Ccf Provider on 10-28-2023 [facility] ALBUMIN/CREAT RATIO RND URon 10-12-2023 Albumin DL <= 20 mg/L (U) [Mass/Vol] 148.7 mg/L [facility] Albumin/Creatinine (U) [Mass ratio] 424 mg/g High <30 mg/g [facility] Creatinine (U) [Mass/Vol] 35.1 mg/dL 20.0 - 300.0 mg/dL [facility] Comprehensive metabolic 2000 panelon 10-12-2023 Albumin [Mass/Vol] 4.0 g/dL 3.9 - 4.9 g/dL [facility] ALP [Catalytic activity/Vol] 63 U/L 34 - 123 U/L [facility] ALT [Catalytic activity/Vol] 16 U/L 7 - 38 U/L [facility] Anion gap [Moles/Vol] 11 mmol/L 9 - 18 mmol/L [facility] AST [Catalytic activity/Vol] 18 U/L 13 - 35 U/L [facility] Bilirubin [Mass/Vol] 0.3 mg/dL 0.2 - 1 .3 mg/dL [facility] Calcium [Mass/Vol] 9.9 mg/dL 8.5 - 10. 2 mg/dL [facility] Chloride [Moles/Vol] 96 mmol/L Low 97 - 10 5 mmol/L [facility] CO2 [Moles/Vol] 29 mmol/L 22 - 30 mmol/L [facility] Creatinine [Mass/Vol] 1.24 mg/dL High 0.58 - 0.96 mg/dL [facility] Estimated Glomerular Filtration Rate 51 mL/min/1.73m Low >=60 mL/min/1.73 m [facility] Glucose [Mass/Vol] 310 mg/dL High 74 - 99 mg/dL [facility] Potassium [Moles/Vol] 4.1 mmol/L 3.7 - 5.1 mmol/L [facility] Protein [Mass/Vol] 7.5 g/dL 6.3 - 8.0 g/dL [facility] Sodium [Moles/Vol] 136 mmol/L 136 - 144 mmol/L [facility] Urea nitrogen [Mass/Vol] 44 mg/dL High 7 - 21 mg/dL [facility] HbA1c (Bld)on 10-12-2023 Average glucose Estimated from glycated hemoglobin (Bld) [Mass/Vol] 303 mg/dL [facility] HbA1c (Bld) [Mass fraction] 12.2 % High 4.3 - 5.6 % [facility] T3 FREE BLDon 10-12-2023 Free T3 [Mass/Vol] 2.6 pg/mL 2.3 - 4.1 pg/mL [facility] T4 FREE/FREE THYROXon 2023 Free T4 [Mass/Vol] 2.0 ng/dL High 0.9 - 1.7 ng/dL [facility] TSH BLDon 10-12-2023 TSH Qn 1.700 m[IU]/L 0.270 - 4.200 mIU/L [facility] VITAMIN D 25 HYDROXYon 10-12 25-hydroxyvitamin D3 [Mass/Vol] 15.9 ng/mL Low 31.0 - 80.0 ng/mL [facility] CBC panel Auto (Bld)on 10-11 Erythrocyte distribution width (RBC) [Ratio] 14.0 % 11.5 - 15.0 % [facility] Hematocrit (Bld) [Volume fraction] 38.6 % 36.0 - 46.0 % [facility] Hemoglobin (Bld) [Mass/Vol] 12.4 g/dL 11.5 - 15.5 g/dL [facility] MCH (RBC) [Entitic mass] 28.8 pg 26.0 - 34.0 pg [facility] MCHC (RBC) [Mass/Vol] 32.1 g/dL 30.5 - 36.0 g/dL [facility] MCV (RBC) [Entitic vol] 89.8 fL 80.0 - 100.0 fL [facility] Nucleated RBC (Bld) [#/Vol] <0.01 k/uL [facility] Platelet mean volume (Bld) [Entitic vol] 11.7 fL 9.0 - 12.7 fL [facility] Platelets (Bld) [#/Vol] 162 10*3/uL 150 - 400 k/uL [facility] RBC (Bld) [#/Vol] 4.30 10*6/uL 3.90 - 5.2 0 m/uL [facility] WBC (Bld) [#/Vol] 7.71 10*3/uL 3.70 - 11.00 k/uL [facility] Absolute lymphocyte countOrd ered By: Vikrma Hicks on 08-12-2023 Lymphocytes Auto (Unsp spec) [#/Vol] 1.54 10*3/uL 0.83-4.51 [facility] Basophil percentageOrdered B y: Vikram Hicks on 08-12-2023 Lactate [Moles/Vol] 0.3 mmol/L 0.4-2.0 [facility] Basophils/100 WBC (Bld) 0.4 % 0-1 [facility] Eosinophils/100 WBC (Bld) 3.1 % 0-5 [facility] Neutrophils (Bld) [#/Vol] 4.6 10*3/uL 2.0-7.7 [facility] Neutrophils/100 WBC (Bld) 63.8 % 47-70 [facility] WBC (Bld) [#/Vol] 7.2 10*3/uL 4.4-11.0 [facility] Chloride [Moles/Vol] 101 mmol/L 98-[address] [facility] Glucose [Mass/Vol] 251 mg/dL 74-106 [facility] Comment on above: Glucose result great er than or equal to 200 mg/dLsuggests DIABETES MELLITUS per A.D.A. criteria. Potassium [Moles/Vol] 4.4 mmol/L 3.5-5.1 [facility] Comment on above: Moderate Hemolysis, Result may be falsely increased. Sodium [Moles/Vol] 135 mmol/L 136-145 [facility] Blood erythrocytes count (nu mber/volume)Ordered By: Vikram Hicks on 08-12-2023 RBC (Bld) [#/Vol] 3.98 10*6/uL 4.2-5.4 [facility] Blood hemoglobin measurement (mass/volume)Ordered By: Vikram Hicks on 08-12-2023 Hemoglobin (Bld) [Mass/Vol] 11.1 g/dL 12.0-15.0 [facility] Blood lymphocytes/100 leukoc ytesOrdered By: Vikram Hicks on 08-12-2023 Lymphocytes/100 WBC (Bld) 21.5 % 19-41 [facility] Blood monocytes/100 leukocyt esOrdered By: Vikram Hicks on 08-12-2023 Monocytes/100 WBC (Bld) 10.6 % 0-10 [facility] Blood platelet mean volumeOr dered By: Vikram Hicks on 08-12-2023 Platelet mean volume (Bld) [Entitic vol] 11.1 fL 6.2-12.0 [facility] Determination of erythrocyte mean corpuscular volume (MCV)Ordered By: Vikram Hicks on 08-12-2023 MCV (RBC) [Entitic vol] 88.9 fL 81-99 [facility] Hematocrit Auto (Bld) [Volum e fraction]Ordered By: Vikram Hicks on 08-12-2023 Hematocrit (Bld) [Volume fraction] 35.4 % 37-47 [facility] - Chemistry and C hemistry - challengeOrdered By: Vikram Hicks on 08-12-2023 CO2 [Moles/Vol] 29.0 mmol/L 21.0-32.0 [facility] Urea nitrogen/Creatinine [Mass ratio] 31.3 mg/mg 10-20 [facility] - Hematology and Cell countsOrdered By: Vikram Hicks on 08-12-2023 Erythrocyte distribution width (RBC) [Entitic vol] 45.9 fL 35.1-43.9 [facility] Erythrocyte distribution width (RBC) [Ratio] 14.3 % 11.6-14.6 [facility] Immature granulocytes/100 WBC (Bld) 0.600 % 0.0-0.9 [facility] Comment on above: IG% - Immature Granu locytes (promyelocytes, myelocytes and metamyelocytes) > 1% indicates that a LEFT SHIFT is Present. MCH (RBC) [Entitic mass] 27.9 pg 27.0-32.0 [facility] Nucleated RBC/100 WBC (Bld) [Ratio] 0 % 0-5 [facility] MCHC Auto (RBC) [Mass/Vol]Or dered By: Vikram Hicks on 08-12-2023 MCHC (RBC) [Mass/Vol] 31.4 g/dL 32-36 [facility] No Panel InformationOrdered By: Vikram Hicks on 08-12-2023 Troponin I High Sensitivity 23 pg/mL 3.0-54.0 [facility] Comment on above: Please Note: New Mariah t Units and Gender Specific Reference Ranges. For more information see Policy Stat Procedure [place] High Sensitivity Troponin (TNIH) and attachments. Estimated GFR (MDRD) Amer 47 mL/min >60 [facility] Comment on above: GFR Calc Estimated GFR (MDRD) Non-Af Amer 39 mL/min >60 [facility] Comment on above: Non- GFR Calc Platelets bldOrdered By: Cherry naina Kurt on 08-12-2023 Platelets (Bld) [#/Vol] 166 10*3/uL 150-450 [facility] Serum or plasma calcium brando urement (mass/volume)Ordered By: Vikram Hicks on 08-12-2023 Calcium [Mass/Vol] 9.6 mg/dL 8.5-10.1 [facility] Serum or plasma creatinine m easurement (mass/volume)Ordered By: Vikram Hicks on 08-12-2023 Creatinine [Mass/Vol] 1.47 mg/dL 0.55-1.02 [facility] Comment on above: The validity of the calculated GFR & GFRAA in patients over 70 years has not been determined. Clinical correlation is essential. Serum or plasma urea nitroge n measurement (mass/volume)Ordered By: iVkram Hicks on 08-12-2023 Urea nitrogen [Mass/Vol] 46 mg/dL 7-18 [facility] Thin prep Papanicolaou smear with manual screeningOrdered By: Vikram Hicks on 08-12-2023 Thin prep Papanicolaou smear with manual screening 5 5-15 [facility] CNOVon 07-01-2023 CNOV Office Visit (SPAGWO ) -------- SAMANTHA ROMERO ([id number]) 1965 F Date Time Provider Department 07/01/23 2:00 PM JAIDA SOARES SPAGWO During your visit today, we recorded the following information about you: Pulse Respiration 75/minute 18/minute Jaida Soares MD 07/01/2023 2:38 PM Signed [facility] Today's Date: 07/01/2023 Last Visit: N/A [...] Assessment - - Medications: CURRENT Pain Medications: [place] 5/325mg once daily PRN (PCP) Mobic 15mg PRN (PCP) Gabapentin 600mg BID - for peripheral neuropathy (PCP) Pain Medications Taken TO DATE (for the chief complaint(s)): Membrane Stabilizers: Neurontin (Gabapentin) NSAIDS: Naprosyn (Naproxen) and Mobic (Meloxicam) Opioids: Vicodin or [place] (Hydrocodone) Muscle Relaxants: Zanaflex (Tizanidine) Topicals: none [...] identified. on 07/01/2023 by Jaida Soares MD [place] 5/325, #30 (06/24/2023, 05/25/2023, 04/25/2023)... (PCP) Recent [...] light touc (more content not included)... Normal [facility] XR LUMBAR MOTION 4V AP/LAT/ FLEX/EXTon 07-01-2023 [facility] Comprehensive metabolic 2000 panelon 06-28-2023 Albumin [Mass/Vol] 4.0 g/dL 3.9 - 4.9 g/dL [facility] ALP [Catalytic activity/Vol] 80 U/L 34 - 123 U/L [facility] ALT [Catalytic activity/Vol] 23 U/L 7 - 38 U/L [facility] Anion gap [Moles/Vol] 18 mmol/L 9 - 18 mmol/L [facility] AST [Catalytic activity/Vol] 17 U/L 13 - 35 U/L [facility] Bilirubin [Mass/Vol] 0.2 mg/dL 0.2 - 1 .3 mg/dL [facility] Calcium [Mass/Vol] 9.6 mg/dL 8.5 - 10. 2 mg/dL [facility] Chloride [Moles/Vol] 97 mmol/L 97 - 10 5 mmol/L [facility] CO2 [Moles/Vol] 21 mmol/L Low 22 - 30 mmol/L [facility] Creatinine [Mass/Vol] 1.22 mg/dL High 0.58 - 0.96 mg/dL [facility] Estimated Glomerular Filtration Rate 52 mL/min/1.73m Low >=60 mL/min/1.73 m [facility] Glucose [Mass/Vol] 377 mg/dL High 74 - 99 mg/dL [facility] Potassium [Moles/Vol] 4.4 mmol/L 3.7 - 5.1 mmol/L [facility] Protein [Mass/Vol] 7.1 g/dL 6.3 - 8.0 g/dL [facility] Sodium [Moles/Vol] 136 mmol/L 136 - 144 mmol/L [facility] Urea nitrogen [Mass/Vol] 45 mg/dL High 7 - 21 mg/dL [facility] No Panel Informationon 05-27 IMPRESSION: No acute fracture or dislocation Bingo Usher: LAUREEN Transcribe Date/Time: May 27 2023 3:26P Dictated by : JURGEN CUNHA MD This examination was interpreted and the report reviewed and electronically signed by: JURGEN CUNHA MD on May 27 2023 3:31PM [facility] DIVISION OF RADIOLOGY No Panel InformationOrdered By: Ccf Provider on 05-27-2023 [facility] XR Hand - right PA and Later [...] finger proximal phalanx DIVISION OF RADIOLOGY Provider, [facility] - 05/27/2023 * * *Final Report* [...] IMPRESSION IMPRESSION: No acute fracture or dislocation Bingo Usher: LAUREEN Transcribe Date/Time: May 27 2023 3:26P Dictated by : JURGEN CUNHA MD This examination was interpreted and the report reviewed and electronically signed by: JURGEN CUNHA MD on Aug 24 2023 3:31PM EST [facility] XR Radius and Ulna - right A [...] finger proximal phalanx DIVISION OF RADIOLOGY [facility] * * *Final Report* * [...] IMPRESSION IMPRESSION: No acute fracture or dislocation Bingo Usher: LAUREEN Transcribe Date/Time: May 27 2023 3:26P Dictated by : JURGEN CUNHA MD This examination was interpreted and the report reviewed and electronically signed by: JURGEN CUNHA MD on May 27 2023 3:31PM EST [facility] No Panel Informationon 05-24 Radiology Study observation (narrative) Liam duarte [facility] XR CHEST 2V FRONTAL/LATon [facility] Absolute lymphocyte countOrd ered By: Tavo Son on 04-09-2023 Lymphocytes Auto (Unsp spec) [#/Vol] 2.73 10*3/uL 0.83-4.51 [facility] Basophil percentageOrdered B y: Tavo Son on 04-09-2023 Basophils/100 WBC (Bld) 0.2 % 0-1 [facility] Eosinophils/100 WBC (Bld) 2.1 % 0-5 [facility] Neutrophils (Bld) [#/Vol] 4.6 10*3/uL 2.0-7.7 [facility] Neutrophils/100 WBC (Bld) 57.0 % 47-70 [facility] WBC (Bld) [#/Vol] 8.1 10*3/uL 4.4-11.0 [facility] Basophil percentageOrdered B y: Taylor Nassar on 04-09-2023 Chloride [Moles/Vol] 98 mmol/L 98-[address] [facility] Glucose [Mass/Vol] 446 mg/dL 74-106 [facility] Comment on above: Glucose result great er than or equal to 200 mg/dLsuggests DIABETES MELLITUS per A.D.A. criteria. Potassium [Moles/Vol] 4.8 mmol/L 3.5-5.1 [facility] Comment on above: Moderate Hemolysis, Result may be falsely increased. Sodium [Moles/Vol] 133 mmol/L 136-145 [facility] Blood erythrocytes count (nu mber/volume)Ordered By: Tavo Son on 04-09-2023 RBC (Bld) [#/Vol] 3.94 10*6/uL 4.2-5.4 [facility] Blood hemoglobin measurement (mass/volume)Ordered By: Tavo Son on 04-09-2023 Hemoglobin (Bld) [Mass/Vol] 10.9 g/dL 12.0-15.0 [facility] Blood lymphocytes/100 leukoc ytesOrdered By: Tavo Son on 04-09-2023 Lymphocytes/100 WBC (Bld) 33.8 % 19-41 [facility] Blood monocytes/100 leukocyt esOrdered By: Tavo Son on 04-09-2023 Monocytes/100 WBC (Bld) 6.7 % 0-10 [facility] Blood platelet mean volumeOr dered By: Tavo Son on 04-09-2023 Platelet mean volume (Bld) [Entitic vol] 11.8 fL 6.2-12.0 [facility] Determination of erythrocyte mean corpuscular volume (MCV)Ordered By: Tavo Son on 04-09-2023 MCV (RBC) [Entitic vol] 86.8 fL 81-99 [facility] Hematocrit Auto (Bld) [Volum e fraction]Ordered By: Tavo Son on 04-09-2023 Hematocrit (Bld) [Volume fraction] 34.2 % 37-47 [facility] Influenza virus A and B and SARS-CoV-2 (COVID-19) Ag panel - Upper respiratory specimOrdered By: Taylor Nassar on 04-09-2023 SARS-CoV-2 (COVID-19) RNA PATRICIA+probe Ql (Resp) [facility] - Chemistry and C hemistry - challengeOrdered By: Tavo Son on 04-09-2023 Natriuretic peptide B (Bld) [Mass/Vol] 6.7 pg/mL 0-100 [facility] - Chemistry and C hemistry - challengeOrdered By: Taylor Nassar on 04-09-2023 CO2 [Moles/Vol] 28.0 mmol/L 21.0-32.0 [facility] Urea nitrogen/Creatinine [Mass ratio] 31.1 mg/mg 10-20 [facility] - Hematology and Cell countsOrdered By: Tavo Son on 04-09-2023 Erythrocyte distribution width (RBC) [Entitic vol] 48.0 fL 35.1-43.9 [facility] Erythrocyte distribution width (RBC) [Ratio] 15.1 % 11.6-14.6 [facility] Immature granulocytes/100 WBC (Bld) 0.200 % 0.0-0.9 [facility] Comment on above: IG% - Immature Granu locytes (promyelocytes, myelocytes and metamyelocytes) > 1% indicates that a LEFT SHIFT is Present. MCH (RBC) [Entitic mass] 27.7 pg 27.0-32.0 [facility] Nucleated RBC/100 WBC (Bld) [Ratio] 0 % 0-5 [facility] MCHC Auto (RBC) [Mass/Vol]Or dered By: Tavo Son on 04-09-2023 MCHC (RBC) [Mass/Vol] 31.9 g/dL 32-36 [facility] No Panel InformationOrdered By: Taylor Nassar on 04-09-2023 Estimated GFR (MDRD) Amer 38 mL/min >60 [facility] Comment on above: GFR Calc Estimated GFR (MDRD) Non-Af Amer 31 mL/min >60 [facility] Comment on above: Non- GFR Calc Troponin I High Sensitivity 37 pg/mL 3.0-54.0 [facility] Comment on above: Please Note: New Mariah t Units and Gender Specific Reference Ranges. For more information see Policy Stat Procedure [place] High Sensitivity Troponin (TNIH) and attachments. Platelets bldOrdered By: Yulissa Son on 04-09-2023 Platelets (Bld) [#/Vol] 151 10*3/uL 150-450 [facility] Serum or plasma calcium brando urement (mass/volume)Ordered By: Taylor Nassar on 04-09-2023 Calcium [Mass/Vol] 9.6 mg/dL 8.5-10.1 [facility] Serum or plasma creatinine m easurement (mass/volume)Ordered By: Taylor Nassar on 04-09-2023 Creatinine [Mass/Vol] 1.77 mg/dL 0.55-1.02 [facility] Comment on above: The validity of the calculated GFR & GFRAA in patients over 70 years has not been determined. Clinical correlation is essential. Serum or plasma urea nitroge n measurement (mass/volume)Ordered By: Taylor Nassar on 04-09-2023 Urea nitrogen [Mass/Vol] 55 mg/dL 7-18 [facility] Thin prep Papanicolaou smear with manual screeningOrdered By: Taylor Nassar on 04-09-2023 Thin prep Papanicolaou smear with manual screening 7 5-15 [facility] VITAMIN D 25 HYDROXYon 03-29 25-hydroxyvitamin D3 [Mass/Vol] 10.9 ng/mL Low 31.0 - 80.0 ng/mL [facility] Comprehensive metabolic 2000 panelon 03-27-2023 Albumin [Mass/Vol] 4.2 g/dL 3.9 - 4.9 g/dL [facility] ALP [Catalytic activity/Vol] 66 U/L 34 - 123 U/L [facility] ALT [Catalytic activity/Vol] 25 U/L 7 - 38 U/L [facility] Anion gap [Moles/Vol] 16 mmol/L 9 - 18 mmol/L [facility] AST [Catalytic activity/Vol] 25 U/L 13 - 35 U/L [facility] Bilirubin [Mass/Vol] 0.2 mg/dL 0.2 - 1 .3 mg/dL [facility] Calcium [Mass/Vol] 9.2 mg/dL 8.5 - 10. 2 mg/dL [facility] Chloride [Moles/Vol] 99 mmol/L 97 - 10 5 mmol/L [facility] CO2 [Moles/Vol] 24 mmol/L 22 - 30 mmol/L [facility] Creatinine [Mass/Vol] 0.95 mg/dL 0.58 - 0.96 mg/dL [facility] Estimated Glomerular Filtration Rate 70 mL/min/1.73m >=60 mL/min/1.73 m [facility] Glucose [Mass/Vol] 316 mg/dL High 74 - 99 mg/dL [facility] Potassium [Moles/Vol] 4.3 mmol/L 3.7 - 5.1 mmol/L [facility] Protein [Mass/Vol] 7.1 g/dL 6.3 - 8.0 g/dL [facility] Sodium [Moles/Vol] 139 mmol/L 136 - 144 mmol/L [facility] Urea nitrogen [Mass/Vol] 32 mg/dL High 7 - 21 mg/dL [facility] HbA1c (Bld)on 03-27-2023 Average glucose Estimated from glycated hemoglobin (Bld) [Mass/Vol] 309 mg/dL [facility] HbA1c (Bld) [Mass fraction] 12.4 % High 4.3 - 5.6 % [facility] T3 FREE BLDon 03-27-2023 Free T3 [Mass/Vol] 1.9 pg/mL Low 2.3 - 4.1 pg/mL [facility] T4 FREE/FREE THYROXon 2022 Free T4 [Mass/Vol] 1.3 ng/dL 0.9 - 1.7 ng/dL [facility] TOX SCREEN ROUT URon 023 Amphetamines Confirm (U) [Mass/Vol] Negative Negative [facility] Barbiturates Urine Negative Negative [facility] Benzodiazepines Urine Negative Negative [facility] Cannabinoids, Urine Negative Negative [facility] Cocaine Ql (U) Negative Negative [facility] Ethanol (U) [Mass/Vol] <11 mg/dL Cl [facility] Opiates Screen Ql (U) Negative Negative [facility] oxyCODONE cutoff Screen (U) [Mass/Vol] Negative Negative [facility] Phencyclidine Ql (U) Negative Negative [facility] TSH BLDon 03-27-2023 TSH Qn 9.630 m[IU]/L High 0.270 - 4.200 mIU/L [facility] CBC panel Auto (Bld)on 03-26 Erythrocyte distribution width (RBC) [Ratio] 15.0 % 11.5 - 15.0 % [facility] Hematocrit (Bld) [Volume fraction] 35.2 % Low 36.0 - 46.0 % [facility] Hemoglobin (Bld) [Mass/Vol] 10.9 g/dL Low 11.5 - 15.5 g/dL [facility] MCH (RBC) [Entitic mass] 27.2 pg 26.0 - 34.0 pg [facility] MCHC (RBC) [Mass/Vol] 31.0 g/dL 30.5 - 36.0 g/dL [facility] MCV (RBC) [Entitic vol] 87.8 fL 80.0 - 100.0 fL [facility] Nucleated RBC (Bld) [#/Vol] <0.01 k/uL [facility] Platelet mean volume (Bld) [Entitic vol] 11.4 fL 9.0 - 12.7 fL [facility] Platelets (Bld) [#/Vol] 135 10*3/uL Low 150 - 400 k/uL [facility] RBC (Bld) [#/Vol] 4.01 10*6/uL 3.90 - 5.2 0 m/uL [facility] WBC (Bld) [#/Vol] 5.05 10*3/uL 3.70 - 11.00 k/uL [facility] CBC W Auto Differential pane l (Bld)on 01-16-2023 Basophils (Bld) [#/Vol] 0.04 10*3/uL <0.11 k/uL [facility] Basophils/100 WBC (Bld) 0.7 % [facility] Differential cell count method Nom (Bld) Auto [facility] Eosinophils (Bld) [#/Vol] 0.29 10*3/uL <0.46 k/uL [facility] Eosinophils/100 WBC (Bld) 5.2 % [facility] Erythrocyte distribution width (RBC) [Ratio] 13.8 % 11.5 - 15.0 % [facility] Hematocrit (Bld) [Volume fraction] 34.5 % Low 36.0 - 46.0 % [facility] Hemoglobin (Bld) [Mass/Vol] 10.4 g/dL Low 11.5 - 15.5 g/dL [facility] Immature granulocytes (Bld) [#/Vol] 0.03 10*3/uL <0.10 k/uL [facility] Immature granulocytes/100 WBC (Bld) 0.5 % [facility] Lymphocytes (Bld) [#/Vol] 1.18 10*3/uL 1.00 - 4.00 k/uL [facility] Lymphocytes/100 WBC (Bld) 21.1 % [facility] MCH (RBC) [Entitic mass] 26.5 pg 26.0 - 34.0 pg [facility] MCHC (RBC) [Mass/Vol] 30.1 g/dL Low 30.5 - 36.0 g/dL [facility] MCV (RBC) [Entitic vol] 87.8 fL 80.0 - 100.0 fL [facility] Monocytes (Bld) [#/Vol] 0.46 10*3/uL <0.87 k/uL [facility] Monocytes/100 WBC (Bld) 8.2 % [facility] Neutrophils (Bld) [#/Vol] 3.58 10*3/uL 1.45 - 7.50 k/uL [facility] Neutrophils/100 WBC (Bld) 64.3 % [facility] Nucleated RBC (Bld) [#/Vol] <0.01 k/uL [facility] Nucleated RBC/100 WBC (Bld) [Ratio] 0.0 /100 WBC [facility] Platelet mean volume (Bld) [Entitic vol] 11.7 fL 9.0 - 12.7 fL [facility] Platelets (Bld) [#/Vol] 163 10*3/uL 150 - 400 k/uL [facility] RBC (Bld) [#/Vol] 3.93 10*6/uL 3.90 - 5.2 0 m/uL [facility] WBC (Bld) [#/Vol] 5.58 10*3/uL 3.70 - 11.00 k/uL [facility] ESR Westergren method (Bld) [Velocity]on 01-16-2023 ESR (Bld) [Velocity] 21 mm/h High 0 - 20 mm/hr [facility] Absolute lymphocyte countOrd ered By: Steven Trent on 01-05-2023 Lymphocytes Auto (Unsp spec) [#/Vol] 1.13 10*3/uL 0.83-4.51 [facility] Basophil percentageOrdered B y: Steven Trent on 01-05-2023 Basophils/100 WBC (Bld) 0.2 % 0-1 [facility] Chloride [Moles/Vol] 101 mmol/L 98-[address] [facility] Eosinophils/100 WBC (Bld) 3.9 % 0-5 [facility] Glucose [Mass/Vol] 444 mg/dL 74-106 [facility] Comment on above: Glucose result great er than or equal to 200 mg/dLsuggests DIABETES MELLITUS per A.D.A. criteria. Neutrophils (Bld) [#/Vol] 4.5 10*3/uL 2.0-7.7 [facility] Neutrophils/100 WBC (Bld) 69.6 % 47-70 [facility] Potassium [Moles/Vol] 4.2 mmol/L 3.5-5.1 [facility] Sodium [Moles/Vol] 134 mmol/L 136-145 [facility] WBC (Bld) [#/Vol] 6.5 10*3/uL 4.4-11.0 [facility] Blood erythrocytes count (nu mber/volume)Ordered By: Steven Trent on 01-05-2023 RBC (Bld) [#/Vol] 3.61 10*6/uL 4.2-5.4 [facility] Blood hemoglobin measurement (mass/volume)Ordered By: Steven Trent on 01-05-2023 Hemoglobin (Bld) [Mass/Vol] 9.8 g/dL 12.0-15.0 [facility] Blood lymphocytes/100 leukoc ytesOrdered By: Steven Trent on 01-05-2023 Lymphocytes/100 WBC (Bld) 17.5 % 19-41 [facility] Blood monocytes/100 leukocyt esOrdered By: Steven Trent on 01-05-2023 Monocytes/100 WBC (Bld) 8.2 % 0-10 [facility] Blood platelet mean volumeOr dered By: Steven Trent on 01-05-2023 Platelet mean volume (Bld) [Entitic vol] 11.2 fL 6.2-12.0 [facility] Determination of erythrocyte mean corpuscular volume (MCV)Ordered By: Steven Trent on 01-05-2023 MCV (RBC) [Entitic vol] 88.4 fL 81-99 [facility] Hematocrit Auto (Bld) [Volum e fraction]Ordered By: Steven Trent on 01-05-2023 Hematocrit (Bld) [Volume fraction] 31.9 % 37-47 [facility] Laboratory - Chemistry and C hemistry - challengeOrdered By: Steven Trent on 01-05-2023 CO2 [Moles/Vol] 26.0 mmol/L 21.0-32.0 [facility] Natriuretic peptide B (Bld) [Mass/Vol] 17.4 pg/mL 0-100 [facility] Urea nitrogen/Creatinine [Mass ratio] 31.7 mg/mg 10-20 [facility] Laboratory - Hematology and Cell countsOrdered By: Steven Trent on 01-05-2023 Erythrocyte distribution width (RBC) [Entitic vol] 45.1 fL 35.1-43.9 [facility] Erythrocyte distribution width (RBC) [Ratio] 14.2 % 11.6-14.6 [facility] Immature granulocytes/100 WBC (Bld) 0.600 % 0.0-0.9 [facility] Comment on above: IG% - Immature Granu locytes (promyelocytes, myelocytes and metamyelocytes) > 1% indicates that a LEFT SHIFT is Present. MCH (RBC) [Entitic mass] 27.1 pg 27.0-32.0 [facility] Nucleated RBC/100 WBC (Bld) [Ratio] 0 % 0-5 [facility] MCHC Auto (RBC) [Mass/Vol]Or dered By: Steven Trent on 01-05-2023 MCHC (RBC) [Mass/Vol] 30.7 g/dL 32-36 [facility] No Panel InformationOrdered By: Steven Trent on 01-05-2023 Estimated Creatinine Clearance Calc 38.56 ml/min [facility] Estimated GFR (MDRD) Amer 50 mL/min >60 [facility] Comment on above: GFR Calc Estimated GFR (MDRD) Non-Af Amer 42 mL/min >60 [facility] Comment on above: Non- GFR Calc Troponin I High Sensitivity 26 pg/mL 3.0-54.0 [facility] Comment on above: Please Note: New Mariah t Units and Gender Specific Reference Ranges. For more information see Policy Stat Procedure [place] High Sensitivity Troponin (TNIH) and attachments. Platelets bldOrdered By: Galen Trent on 01-05-2023 Platelets (Bld) [#/Vol] 145 10*3/uL 150-450 [facility] Serum or plasma calcium brando urement (mass/volume)Ordered By: Steven Trent on 01-05-2023 Calcium [Mass/Vol] 8.8 mg/dL 8.5-10.1 [facility] Serum or plasma creatinine m easurement (mass/volume)Ordered By: Steven Trent on 01-05-2023 Creatinine [Mass/Vol] 1.39 mg/dL 0.55-1.02 [facility] Comment on above: The validity of the calculated GFR & GFRAA in patients over 70 years has not been determined. Clinical correlation is essential. Serum or plasma urea nitroge n measurement (mass/volume)Ordered By: Steven Trent on 01-05-2023 Urea nitrogen [Mass/Vol] 44 mg/dL 7-18 [facility] Thin prep Papanicolaou smear with manual screeningOrdered By: Steven Trent on 01-05-2023 Thin prep Papanicolaou smear with manual screening 7 -15 [facility] CBC panel Auto (Bld)on 12-18 Erythrocyte distribution width (RBC) [Ratio] 13.8 % 11.5 - 15.0 % [facility] Hematocrit (Bld) [Volume fraction] 33.3 % Low 36.0 - 46.0 % [facility] Hemoglobin (Bld) [Mass/Vol] 10.3 g/dL Low 11.5 - 15.5 g/dL [facility] MCH (RBC) [Entitic mass] 27.5 pg 26.0 - 34.0 pg [facility] MCHC (RBC) [Mass/Vol] 30.9 g/dL 30.5 - 36.0 g/dL [facility] MCV (RBC) [Entitic vol] 88.8 fL 80.0 - 100.0 fL [facility] Nucleated RBC (Bld) [#/Vol] <0.01 k/uL [facility] Platelet mean volume (Bld) [Entitic vol] 11.6 fL 9.0 - 12.7 fL [facility] Platelets (Bld) [#/Vol] 160 10*3/uL 150 - 400 k/uL [facility] RBC (Bld) [#/Vol] 3.75 10*6/uL Low 3.90 - 5.2 0 m/uL [facility] WBC (Bld) [#/Vol] 5.77 10*3/uL 3.70 - 11.00 k/uL [facility] HEMOGLOBIN A1C (POC)on 10-21 HbA1c (Bld) [Mass fraction] 11.0 % Abnormal 4.2 - 5.6 % [facility] UA DIP, URINE (POC)on 2021 BILIRUBIN UA (POCT) Negative Negative [facility] CLARITY UA (POCT) Cloudy [facility] COLOR UA (POCT) Light yellow [facility] GLUCOSE UA (POCT) 500 mg/dL Abnormal Negative mg/dL [facility] HEMOGLOBIN/BLOOD UA (POCT) Large Abnormal Negative [facility] KETONE UA (POCT) Negative Negative mg/dL [facility] LEUKOCYTES UA (POCT) Small Abnormal Negative [facility] NITRITE UA (POCT) Negative Negative [facility] PH UA (POCT) 5.0 4.5 - 8.0 [facility] Protein Ql (U) 30 mg/dL Abnormal Negative mg/dL [facility] SPECIFIC GRAVITY UA (POCT) 1.015 1.005 - 1.030 [facility] UROBILINOGEN UA (POCT) 0.2 E.U./dL Lory l E.U./dL [facility] Basophil percentageon 2021 Lactate [Moles/Vol] 1.8 mmol/L 0.4-2.0 [facility] Work Phone: Basophil percentage >100 SEEN /hpf 0-5 [facility] Work Phone: Bilirubin Test strip Ql (U)o n 08-10-2022 Bilirubin Ql (U) Negative Negative [facility] Work Phone: Ketones Test strip Ql (U)on 08-10-2022 Ketones Ql (U) Negative Negative [facility] Work Phone: Mucus LM Ql (Urine sed)on Mucus Ql (Urine sed) 0 SEEN /hpf [facility] Work Phone: Nitrite Test strip Ql (U)on 08-10-2022 Nitrite Ql (U) Positive Negative [facility] Work Phone: Protein Test strip Ql (U)on 08-10-2022 Protein Ql (U) 100 mg/dl Negative [facility] Work Phone: Squamous epithelial cells de tection in urine sediment by light microscopyon 08-10-2022 Epithelial cells.squamous LM Ql (Urine sed) 0 SEEN /hpf 5-10 [facility] Work Phone: Urine blood detectionon RBC Ql (U) 150 /ul Negative [facility] Work Phone: RBC Ql (U) 10-25 SEEN /hpf 0-5 [facility] Work Phone: Urine clarityon 08-10-2022 Clarity (U) Sl. Cloudy Clear [facility] Work Phone: Urine color determinationon 08-10-2022 Color (U) Yellow Yellow [facility] Work Phone: Urine glucose detectionon Glucose Ql (U) 1000 mg/dl Normal [facility] Work Phone: Urine leukocyte esterase det ection by dipstickon 08-10-2022 Leukocyte esterase Test strip Ql (U) 500 /ul Negative [facility] Work Phone: Urine pHon 08-10-2022 pH (U) 7.0 [pH] 5.0 - 8.0 [facility] Work Phone: Urine sediment bacteria coun t by microscopy (number/high power field)on 08-10-2022 Bacteria LM.HPF (Urine sed) [#/Area] 3 /[HPF] None Seen [facility] Work Phone: Urine specific gravity measu rementon 08-10-2022 Specific gravity (U) [Rel density] 1.010 1.002-1.030 [facility] Work Phone: Urobilinogen Auto test strip Ql (U)on 08-10-2022 Urobilinogen Ql (U) Normal mg/dl Normal [facility] Work Phone: Absolute lymphocyte counton 08-09-2022 Lymphocytes Auto (Unsp spec) [#/Vol] 1.31 10*3/uL 0.83-4.51 [facility] Work Phone: Basophil percentageon 2021 Basophils/100 WBC (Bld) 0.1 % 0-1 [facility] Work Phone: Bilirubin [Mass/Vol] 0.40 mg/dL 0.20-1.[address] [facility] Work Phone: Comment on above: For patients on eltr ombopag therapy, use of Dimension [place] TBIL is not recommended. Chloride [Moles/Vol] 101 mmol/L 98-[address] [facility] Work Phone: Eosinophils/100 WBC (Bld) 1.7 % 0-5 [facility] Work Phone: Glucose [Mass/Vol] 180 mg/dL 74-106 [facility] Work Phone: Comment on above: Fasting Glucose resu lt greater than or equal to 126 mg/dL suggests DIABETES MELLITUS per A.D.A. criteria. Neutrophils (Bld) [#/Vol] 10.3 10*3/uL 2.0-7.7 [facility] Work Phone: Neutrophils/100 WBC (Bld) 81.4 % 47-70 [facility] Work Phone: [phone] Potassium [Moles/Vol] 4.8 mmol/L 3.5-5.1 [facility] Work Phone: Comment on above: Moderate Hemolysis, Result may be falsely increased. Protein [Mass/Vol] 7.7 g/dL 6.4-8.2 [facility] Work Phone: [phone] Sodium [Moles/Vol] 138 mmol/L 136-145 [facility] Work Phone: [phone] WBC (Bld) [#/Vol] 12.7 10*3/uL 4.4-11.0 [facility] Work Phone: [phone] Blood erythrocytes count (nu mber/volume)on 08-09-2022 RBC (Bld) [#/Vol] 4.11 10*6/uL 4.2-5.4 [facility] Work Phone: [phone] Blood hemoglobin measurement (mass/volume)on 08-09-2022 Hemoglobin (Bld) [Mass/Vol] 11.6 g/dL 12.0-15.0 [facility] Work Phone: [phone] Blood lymphocytes/100 leukoc yteson 08-09-2022 Lymphocytes/100 WBC (Bld) 10.3 % 19-41 [facility] Work Phone: Blood monocytes/100 leukocyt eson 08-09-2022 Monocytes/100 WBC (Bld) 6.2 % 0-10 [facility] Work Phone: Blood platelet mean volumeon 08-09-2022 Platelet mean volume (Bld) [Entitic vol] 10.7 fL 6.2-12.0 [facility] Work Phone: [phone] Determination of erythrocyte mean corpuscular volume (MCV)on 08-09-2022 MCV (RBC) [Entitic vol] 89.3 fL 81-99 [facility] Work Phone: Direct bilirubinon Bilirubin.direct [Mass/Vol] 0.08 mg/dL 0.00-0.30 [facility] Work Phone: Hematocrit Auto (Bld) [Volum e fraction]on 08-09-2022 Hematocrit (Bld) [Volume fraction] 36.7 % 37-47 [facility] Work Phone: [phone] Laboratory - Chemistry and C hemistry - challengeon 08-09-2022 ALP [Catalytic activity/Vol] 63 U/L 45-117 [facility] Work Phone: ALT [Catalytic activity/Vol] 32 U/L 13-56 [facility] Work Phone: [phone] CO2 [Moles/Vol] 28.0 mmol/L 21.0-32.0 [facility] Work Phone: [phone] Globulin (S) [Mass/Vol] 4.1 g/dL 2.2-4.2 [facility] Work Phone: Lipase [Catalytic activity/Vol] 521 U/L 73-393 [facility] Work Phone: [phone] Urea nitrogen/Creatinine [Mass ratio] 23.9 mg/mg 10-20 [facility] Work Phone: [phone] Laboratory - Hematology and Cell countson 08-09-2022 Erythrocyte distribution width (RBC) [Entitic vol] 42.9 fL 35.1-43.9 [facility] Work Phone: [phone] Erythrocyte distribution width (RBC) [Ratio] 13.2 % 11.6-14.6 [facility] Work Phone: [phone] Immature granulocytes/100 WBC (Bld) 0.300 % 0.0-0.9 [facility] Work Phone: Comment on above: IG% - Immature Granu locytes (promyelocytes, myelocytes and metamyelocytes) > 1% indicates that a LEFT SHIFT is Present. MCH (RBC) [Entitic mass] 28.2 pg 27.0-32.0 [facility] Work Phone: Nucleated RBC/100 WBC (Bld) [Ratio] 0 % 0-5 [facility] Work Phone: MCHC Auto (RBC) [Mass/Vol]on 08-09-2022 MCHC (RBC) [Mass/Vol] 31.6 g/dL 32-36 [facility] Work Phone: No Panel Informationon 08-09 D-Dimer Quantitative (PE/DVT) 1.32 FEU/ug/m 0.27-0.49 [facility] Work Phone: Comment on above: D-Dimer ELEVATED (>0 .49): Additional studies and clinicalassessments are indicated to conclude diagnosis of:Deep Vein Thrombosis (DVT) or Pulmonary Embolism (PE)CRITICAL VALUE VERIFIED. CALLED TO EDMUND LLOYD08/09/22 2306 Robin Khalil.RESULTS READ BACK BY SAME . Estimated Creatinine Clearance Calc 48.00 ml/min [facility] Work Phone: Estimated GFR (MDRD) Amer 64 mL/min >60 [facility] Work Phone: Comment on above: GFR Calc Estimated GFR (MDRD) Non-Af Amer 53 mL/min >60 [facility] Work Phone: Comment on above: Non- GFR Calc Troponin I High Sensitivity 21 pg/mL 3.0-54.0 [facility] Work Phone: Comment on above: Please Note: New Mariah t Units and Gender Specific Reference Ranges. For more information see Policy Stat Procedure [place] High Sensitivity Troponin (TNIH) and attachments. Platelets bldon 08-09-2022 Platelets (Bld) [#/Vol] 134 10*3/uL 150-450 [facility] Work Phone: Serum or plasma albumin brando urement (mass/volume)on 08-09-2022 Albumin [Mass/Vol] 3.6 g/dL 3.2-5.0 [facility] Work Phone: Serum or plasma calcium brando urement (mass/volume)on 08-09-2022 Calcium [Mass/Vol] 8.9 mg/dL 8.5-10.1 [facility] Work Phone: Serum or plasma creatinine m easurement (mass/volume)on 08-09-2022 Creatinine [Mass/Vol] 1.13 mg/dL 0.55-1.02 [facility] Work Phone: Comment on above: The validity of the calculated GFR & GFRAA in patients over 70 years has not been determined. Clinical correlation is essential. Serum or plasma urea nitroge n measurement (mass/volume)on 08-09-2022 Urea nitrogen [Mass/Vol] 27 mg/dL 7-18 [facility] Work Phone: Thin prep Papanicolaou smear with manual screeningon 08-09-2022 Thin prep Papanicolaou smear with manual screening 30 U/L 15-37 [facility] Work Phone: Comment on above: Moderate Hemolysis, Result may be falsely increased. Thin prep Papanicolaou smear with manual screening 9 5-15 [facility] Work Phone: Whole blood hemoglobin A1c/t otal hemoglobin ratio (mass fraction)on 08-09-2022 HbA1c (Bld) [Mass fraction] 9.6 % 3.8-5.6 [facility] Work Phone: Comment on above: Normal < 5.7 % Predi abetic 5.7 - 6.4 % Diabetic >or= 6.5 % Please note range changes. GLUCOSE-POCTon 06-12-2021 Glucose [Mass/Vol] 224 mg/dL High 74 - 99 [facility] Comment on above: Performed By: #### G ANTHONY #### [address] [place] [address] Order Reconciliationon 06-12 Order Reconciliation Page 1 [...] Lactated Ringer (more content not included)... [facility] Preop Checkliston 06-12-2021 Preop Checklist Preop Checklist: Preop Checklist: Arrival [id number] Arrival Time10:00 Procedure Typeleft cataract Temperature C36.5 degrees C Temperature F97.8 degrees F Heart Rate71 beats per minute NPO [id number] 23:00 ID Band Onyes Allergy Bandyes Consent [...] 12-Jun-2021 10:20 by Emilia Najera (COLT) [facility] CORONAVIRUS 2019, SCREEN ASY MPTOMATICon 06-07-2021 SARS-CoV-2 (COVID-19) RNA PATRICIA+probe Ql (Unsp spec) Not detected Normal Not Detected [facility] Comment on above: Result Comment: . This [...] patient management decisions. Fact sheet for providers: https://www.fda.gov/media/454584/download Fact sheet for patients: https://www.fda.gov/media/509892/download This test has received FDA Emergency Use Authorization (EUA) and has been verified by [facility] ([facility]). This test is only authorized for the duration of time that circumstances exist to justify the authorization of the emergency use of in vitro diagnostic tests for the detection of SARS-CoV-2 virus and/or diagnosis of COVID-19 infection under section 564(b)(1) of the Act, 21 U.S.C. 360bbb-3(b)(1), unless the authorization is terminated or revoked sooner. [facility] is certified under CLIA-88 as qualified to perform high complexity testing. Testing is performed in the [facility] laboratories located at [address] [place] [address]. Performed By: #### C OVSC #### [place] [address] Lab Specimen Source Nasal, Nasopharyngeal [facility] Comment on above: Performed By: #### C OVSC #### [place] [address] Covid 19 Resultson 1 SARS-CoV-2 (COVID-19) RNA [...] You may also be contacted by the [facility] to see if any of [...] or Naproxen (Aleve) can also be used. Hpeg-llg-xckbwrb cough and cold medicines can be used according to the instructions on the package. Some kipv-ljn-ccisxxs medicines also contain acetaminophen. Make sure you [...] water are not available, use alcohol-based hand supervisor elementary education. Avoid touching your eyes, nose, and mouth [...] 24 romeo (more content not included)... 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 driver operator), center location, insurance information Prep Instructions Reviewedyes Instructed to Have No Fluids Aftermidnight Stated Reason for Admissioneye surgery Primary Contact Name and [phone] Other Contact Names and Numberssharon Patient Belongingsremains with patient Patient Belongings Remaining with Patientclothing; vision aids; at bedside; purse/wallet Medications Brought to [facility]: Weight in kg90.6 kilogram(s) Weight in aix876.7 pound(s) Weight Methodactual (measured) Scale Typestanding Height [...] instruction; written material Cultural Considerationsnone Developmental Considerationsnone Sabianist Considerationsnone Other learner availableyes... Learnerfamily Factors Influencing Readiness to Learninterest in learning Factors that Impact Ability to Learnnone Devices/Methods Used to Communicatenone Learning Preferencesindividual instruction, written material Cultural Considerationsnone Developmental Considerationsnone Sabianist Considerationsnone Falls RiskPatient location auto qualifies him/her for HIGH RISK. Are there any cultural, spiritual, latter day practices/values/needs that are important for us to [...] Profile - Preop v2 28-May-2021 10:03 [facility] GLUCOSE-POCTon 05-29-2021 Glucose [Mass/Vol] 168 mg/dL High 74 - 99 [facility] Comment on above: Performed By: #### G ANTHONY ####[address] [address] HEMOGLOBIN A1Con 05-29-2021 Glucose [Mass/Vol] 232 mg/dL [facility] Comment on above: Performed By: #### H BA1E ####[address] [address] HbA1c (Bld) [Mass fraction] 9.7 % [facility] Comment on above: Result Comment: Diag nosis of Diabetes-Adults Non-Diabetic: < or = 5.6% Increased risk for developing diabetes: 5.7-6.4% Diagnostic of diabetes: > or = 6.5% . Monitoring of Diabetes Age (y) Therapeutic Goal (%) Adults: >18 <7.0 Pediatrics: 13-18 <7.5 7-12 <8.0 0- 6 7.5-8.5 Citizen Of [place] Diabetes Association. Diabetes Care 33(S1), Oct 2009. Performed By: #### H BA1E ####[address] [address] Order Reconciliationon 05-29 Order Reconciliation Page 1 [...] mL Intr (more content not included)... [facility] Preop Checkliston 05-29-2021 Preop Checklist Preop Checklist: Preop Checklist: Arrival [id number] Arrival Time08:41 Procedure Typeright eye cataract surgery Temperature C36.3 degrees C Temperature F97.3 degrees F Heart Rate70 beats per minute Respiratory Rate14 breath per minute Blood Pressure Xinrbtmm715 mm/Hg Blood Pressure Tejokpols88 mm/Hg NPO [id number] 22:30 ID Band Onyes Allergy Bandyes Consent [...] / Communication: Language / CommunicationEnglish Electronic Signatures: Corina Nunes (RN) (Signed 29-May-2021 09:31) Authored: Preop Checklist Last Updated: 29-May-2021 09:31 by Corina Nunes (RN) [facility] CORONAVIRUS 2019, SCREEN ASY MPTOMATICon 05-28-2021 SARS-CoV-2 (COVID-19) RNA PATRICIA+probe Ql (Unsp spec) Not detected Normal Not Detected [facility] Comment on above: Result Comment: . This [...] patient management decisions. Fact sheet for providers: https://www.fda.gov/media/025379/download Fact sheet for patients: https://www.fda.gov/media/711952/download This test has received FDA Emergency Use Authorization (EUA) and has been verified by [facility] ([facility]). This test is only authorized for the duration of time that circumstances exist to justify the authorization of the emergency use of in vitro diagnostic tests for the detection of SARS-CoV-2 virus and/or diagnosis of COVID-19 infection under section 564(b)(1) of the Act, 21 U.S.C. 360bbb-3(b)(1), unless the authorization is terminated or revoked sooner. [facility] is certified under CLIA-88 as qualified to perform high complexity testing. Testing is performed in the [facility] laboratories located at [address] [place] [address]. Performed By: #### C OVSC #### [facility] [id number] [place] [address]. [place] [address] Covid 19 Resultson 1 SARS-CoV-2 (COVID-19) RNA [...] You may also be contacted by the [facility] to see if any of [...] or Naproxen (Aleve) can also be used. Uyld-mrd-gobzuzm cough and cold medicines can be used according to the instructions on the package. Some qdud-cxv-vhjvrxj medicines also contain acetaminophen. Make sure you [...] water are not available, use alcohol-based hand supervisor elementary education. Avoid touching your eyes, nose, and mouth [...] 24 romeo (more content not included)... 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 driver operator), center location, insurance information Prep Instructions Reviewedyes Instructed to Have No Fluids Aftermidnight Stated Reason for Admissioneye surgery Primary Contact Name and [phone] Other Contact Names and Numberssharon Patient Belongingsremains with patient Patient Belongings Remaining with Patientclothing; vision aids; at bedside; purse/wallet Medications Brought to Hospitalno General Health: Weight in kg90.6 kilogram(s) Weight in hgv952.7 pound(s) Weight Methodactual (measured) Scale Typestanding Height in feet5 feet Height in inches4 inch(es) Height in cm162.5 centimeter(s) Height Methodstated BMI (kg/m2)34.31 square meter Patient or Family Member Reaction to Anesthesiano previous family member reaction; no previous reaction Blood Avoidance/Restrictionsno ne Relationship/Environ: Resource/Environmental Concernsnone [facility]: Smoking Statusformer smoker Alcohol Useoccasionally Drug [...] instruction; written material Cultural Considerationsnone Developmental Considerationsnone Sabianist Considerationsnone Other learner availableyes... Learnerfamily Factors Influencing Readiness to Learninterest in learning Factors that Impact Ability to Learnnone Devices/Methods Used to Communicatenone Learning Preferencesindividual instruction, written material Cultural Considerationsnone Developmental Considerationsnone Sabianist Considerationsnone Falls RiskPatient location auto qualifies him/her for HIGH RISK. Are there any cultural, spiritual, latter day practices/values/needs that are important for us to [...] Updated: 29-May-2021 09:05 by Corina Nunes (COLT) [facility] CORONAVIRUS 2019, SCREEN ASY MPTOMATICon 05-27-2021 Lab Specimen Source Nasal, Nasopharyngeal Normal [facility] Comment on above: Performed By: #### C OVSC #### [facility] [address] [place] [address] CURon 02-23-2019 CUR . MICRO - Microbiology [...] Locations *1: This test was performed at: [facility], [address] [place] [address], [address] [place] [address] ([place]) Comment on above: Performed By: #### C UR #### [place] [address] .Urinalysis Microscopic (AO) on 02-20-2019 RBC #/vol (U) 0-5 None Seen [facility] ([place]) Comment on above: Performed By: #### U A, UAMICAO #### [place] [address] UA Bacteria Trace [facility] ([place] Comment on above: Performed By: #### U A, UAMICAO #### [place] [address] UA Squam Epithelial 0-5 None Seen [facility] ([place]) Comment on above: Performed By: #### U A, UAMICAO #### [place] [address] UA WBC 10-15 None Seen [facility] ([place] Comment on above: Performed By: #### U A, UAMICAO #### [place] [address] UAon 02-20-2019 Color Nom (U) Yellow Normal [facility] ([place]) Comment on above: Performed By: #### U A, UAMICAO #### [place] [address] Glucose mass conc (U) 500 mg/dL Negative [facility] ([place]) Comment on above: Performed By: #### U A, UAMICAO #### [place] [address] Ketones Ql (U) Negative Normal Negative [facility] ([place]) Comment on above: Performed By: #### U A, UAMICAO #### [place] [address] UA Appear Clear Normal Clear [facility] ([place] Comment on above: Performed By: #### U A, UAMICAO #### [place] [address] UA Blood Negative Normal Negative [facility] ([place] Comment on above: Performed By: #### U A, UAMICAO #### [place] [address] UA Leuk Est Negative Normal Negative [facility] ([place] Comment on above: Performed By: #### U A, UAMICAO #### [place] [address] UA Nitrite Negative Normal Negative [facility] ([place] Comment on above: Performed By: #### U A, UAMICAO #### [place] [address] UA pH 6.5 Normal 5.0 - 8.0 [facility] ([place] Comment on above: Performed By: #### U A, UAMICAO #### [place] [address] [place] [address] UA Protein Negative Normal Negative [facility] ([place]) Comment on above: Performed By: #### U A, UAMICAO #### [place] [address] [place] [address] UA Spec Grav 1.015 Normal 1.015-1.025 [facility] ([place]) Comment on above: Performed By: #### U A, UAMICAO #### [address] [address] UA Specimen Type Clean Catch Normal [facility] ([place] Comment on above: Performed By: #### U A, UAMICAO #### [place] [id number] UA Urobilinogen 0.2 E.U./dL Normal 0.2-1.0 [facility] ([place] Comment on above: Performed By: #### U A, UAMICAO #### [place] [address] Urobilinogen Qn (U) Negative Normal Negative [facility] ([place] Comment on above: Performed By: #### U A, UAMICAO #### [address] [address] No Panel Information [facility] Vital Signs Date Time Vital Sign Value Performing Clinician Facility 07-12-2025 14:52-0400 Body temperature 97 [degF] Dr. Sarina Adams MD Work Phone: [facility] 07-12-2025 14:52-0400 Diastolic blood pressure 55 mm[Hg] Dr. Sarina Adams MD Work Phone: [facility] 07-12-2025 14:52-0400 Heart rate 71 /min Dr. Sarina Adams MD Work Phone: [facility] 07-12-2025 14:52-0400 Inhaled oxygen flow rate 2 L/min Dr. Sarina Adams MD Work Phone: [facility] 07-12-2025 14:52-0400 Respiratory rate 18 /min Dr. Sarina Adams MD Work Phone: 4(632)337-095136 [place] [address] 07-12-2025 14:52-0400 SaO2% (BldA) [Mass fraction] 94 % Dr. Sarina Adams MD Work Phone: 8(705)841-266736 [place] [address] 07-12-2025 14:52-0400 Systolic blood pressure 118 mm[Hg] Dr. Sarina Adams MD Work Phone: 4(926)081-891736 [place] [address] 07-12-2025 06:00-0400 Body mass index (BMI) [Ratio] 44.6 kg/m2 Dr. Sarina Adams MD Work Phone: 6(751)889-152236 [place] [address] 07-12-2025 06:00-0400 Body weight 117.[address] Sarina Adams MD Work Phone: 0(546)590-767336 [place] [address] 07-10-2025 14:43-0400 Body height 162.[address] Sarina Adams MD Work Phone: 8(193)555-456836 [place] [address] 07-09-2025 18:23-0400 Body temperature 99 [degF] Dr. Sarina Adams MD Work Phone: 6(985)824-271936 [place] [address] 07-09-2025 18:23-0400 Diastolic blood pressure 73 mm[Hg] Dr. Sarina Adams MD Work Phone: 5(976)486-810336 [place] [address] 07-09-2025 18:23-0400 Heart rate 71 /min Dr. Sarina Adams MD Work Phone: 7(710)403-630536 [place] [address] 07-09-2025 18:23-0400 Respiratory rate 19 /min Dr. Sarina Adams MD Work Phone: 8(981)793-125936 [place] [address] 07-09-2025 18:23-0400 SaO2% (BldA) [Mass fraction] 99 % Dr. Sarina Adams MD Work Phone: 1(992)447-640336 [place] [address] 07-09-2025 18:23-0400 Systolic blood pressure 181 mm[Hg] Dr. Sarina Adams MD Work Phone: [facility] 07-09-2025 18:15-0400 Inhaled oxygen flow rate 2 L/min Dr. Sarina Adams MD Work Phone: [facility] 07-09-2025 16:41-0400 Body mass index (BMI) [Ratio] 47.5 kg/m2 Dr. Sarina Adams MD Work Phone: [facility] 07-09-2025 16:41-0400 Body weight 121.[address] Sarina Adams MD Work Phone: [facility] 07-09-2025 16:21-0400 Body height 160.[address] Sarina Adams MD Work Phone: [facility] 05-29-2025 14:54-0400 Body mass index (BMI) [Ratio] 42.12 kg/m2 Denise Alvarado DISPATCH SUPERVISOR.FELLING MACHINE OPERATOR Work Phone: [facility] 05-29-2025 14:54-0400 Body weight 112.6 kg Denise Alvarado DISPATCH SUPERVISOR.FELLING MACHINE OPERATOR Work Phone: [facility] 05-29-2025 14:54-0400 Diastolic blood pressure 62 mm[Hg] Denise Alvarado DISPATCH SUPERVISOR.FELLING MACHINE OPERATOR Work Phone: [facility] 05-29-2025 14:54-0400 Heart rate 76 /min Denise Alvarado DISPATCH SUPERVISOR.FELLING MACHINE OPERATOR Work Phone: [facility] 05-29-2025 14:54-0400 Respiratory rate 16 /min Denise Alvarado DISPATCH SUPERVISOR.FELLING MACHINE OPERATOR Work Phone: [facility] 05-29-2025 14:54-0400 SaO2% (BldA) [Mass fraction] 98 % Denise Alvarado DISPATCH SUPERVISOR.FELLING MACHINE OPERATOR Work Phone: [facility] 05-29-2025 14:54-0400 Systolic blood pressure 122 mm[Hg] Denise Alvarado DISPATCH SUPERVISOR.FELLING MACHINE OPERATOR Work Phone: [facility] 05-22-2025 14:56-0400 Body mass index (BMI) [Ratio] 46.01 kg/m2 Denise Alvarado DISPATCH SUPERVISOR.FELLING MACHINE OPERATOR Work Phone: [facility] 05-22-2025 14:56-0400 Body weight 123 kg Denise Alvarado DISPATCH SUPERVISOR.FELLING MACHINE OPERATOR Work Phone: [facility] 05-22-2025 14:56-0400 Diastolic blood pressure 79 mm[Hg] Denise Alvarado DISPATCH SUPERVISOR.FELLING MACHINE OPERATOR Work Phone: [facility] 05-22-2025 14:56-0400 Heart rate 66 /min Denise Alvarado DISPATCH SUPERVISOR.FELLING MACHINE OPERATOR Work Phone: [facility] 05-22-2025 14:56-0400 Respiratory rate 16 /min Denise Alvarado DISPATCH SUPERVISOR.FELLING MACHINE OPERATOR Work Phone: [facility] 05-22-2025 14:56-0400 Systolic blood pressure 118 mm[Hg] Denise Alvarado DISPATCH SUPERVISOR.FELLING MACHINE OPERATOR Work Phone: [facility] 03-28-2025 15:07-0400 Body mass index (BMI) [Ratio] 42.08 kg/m2 Cole Cheli DISPATCH SUPERVISOR.MANAGER APPOINTMENT Work Phone: [facility] 03-28-2025 15:07-0400 Body weight 112.5 kg Cole Cheli DISPATCH SUPERVISOR.MANAGER APPOINTMENT Work Phone: [facility] 03-28-2025 15:07-0400 Diastolic blood pressure 54 mm[Hg] Cole Cheli DISPATCH SUPERVISOR.MANAGER APPOINTMENT Work Phone: [facility] 03-28-2025 15:07-0400 Heart rate 73 /min Cole Cheli DISPATCH SUPERVISOR.MANAGER APPOINTMENT Work Phone: [facility] 03-28-2025 15:07-0400 SaO2% (BldA) [Mass fraction] 94 % Cole Cheli DISPATCH SUPERVISOR.MANAGER APPOINTMENT Work Phone: [facility] Comment on above: O2 at 2 L/M 03-28-2025 15:07-0400 Systolic blood pressure 112 mm[Hg] Cole Cheli DISPATCH SUPERVISOR.MANAGER APPOINTMENT Work Phone: [facility] 12-25-2024 14:27-0400 Body height 163.5 cm Pulm Wstr Work Phone: [facility] 12-25-2024 14:27-0400 Body mass index (BMI) [Ratio] 43.1 kg/m2 Pulm Wstr Work Phone: [facility] 12-25-2024 14:27-0400 Body weight 115.21 kg Pulm Wstr Work Phone: [facility] 12-25-2024 14:27-0400 Heart rate 64 /min Pulm Wstr Work Phone: [facility] 12-25-2024 14:27-0400 Respiratory rate 16 /min Pulm Wstr Work Phone: [facility] 12-25-2024 14:27-0400 SaO2% (BldA) [Mass fraction] 98 % Pulm Wstr Work Phone: [facility] 12-08-2024 14:30-0500 Body mass index (BMI) [Ratio] 43.1 kg/m2 Denise Alvarado DISPATCH SUPERVISOR.FELLING MACHINE OPERATOR Work Phone: [facility] 12-08-2024 14:30-0500 Body weight 113.9 kg Denise Alvarado DISPATCH SUPERVISOR.FELLING MACHINE OPERATOR Work Phone: [facility] 12-08-2024 14:30-0500 Diastolic blood pressure 67 mm[Hg] Denise Alvarado DISPATCH SUPERVISOR.FELLING MACHINE OPERATOR Work Phone: [facility] 12-08-2024 14:30-0500 Heart rate 74 /min Denise Alvarado DISPATCH SUPERVISOR.FELLING MACHINE OPERATOR Work Phone: [facility] 12-08-2024 14:30-0500 Systolic blood pressure 115 mm[Hg] Denise Alvarado DISPATCH SUPERVISOR.FELLING MACHINE OPERATOR Work Phone: [facility] 12-06-2024 13:54-0500 Diastolic blood pressure 64 mm[Hg] Brooke Be PA-C Work Phone: [facility] 12-06-2024 13:54-0500 Systolic blood pressure 122 mm[Hg] Brooke Be PA-C Work Phone: [facility] 11-28-2024 15:49-0500 Body height 162.6 cm Sally Villa MD Work Phone: [facility] 11-28-2024 15:49-0500 Body mass index (BMI) [Ratio] 43.62 kg/m2 Sally Villa MD Work Phone: [facility] 11-28-2024 15:49-0500 Body weight 115.27 kg Sally Villa MD Work Phone: [facility] 11-28-2024 15:49-0500 Diastolic blood pressure 74 mm[Hg] Sally Villa MD Work Phone: [facility] 11-28-2024 15:49-0500 Heart rate 75 /min Sally Villa MD Work Phone: [facility] 11-28-2024 15:49-0500 SaO2% (BldA) [Mass fraction] 96 % Sally Villa MD Work Phone: [facility] Comment on above: 2L O2 nc 11-28-2024 15:49-0500 Systolic blood pressure 125 mm[Hg] Sally Villa MD Work Phone: [facility] 10-16-2024 14:08-0500 Body height 162.6 cm Ramesh Brewster MD Work Phone: [facility] 10-16-2024 14:08-0500 Body mass index (BMI) [Ratio] 42.4 kg/m2 Ramesh Brewster MD Work Phone: [facility] 10-16-2024 14:08-0500 Body weight 112.04 kg Ramesh Brewster MD Work Phone: [facility] 10-16-2024 14:08-0500 Diastolic blood pressure 70 mm[Hg] Ramesh Brewster MD Work Phone: [facility] 10-16-2024 14:08-0500 Heart rate 72 /min Ramesh Brewster MD Work Phone: [facility] 10-16-2024 14:08-0500 Respiratory rate 14 /min Ramesh Brewster MD Work Phone: [facility] 10-16-2024 14:08-0500 SaO2% (BldA) [Mass fraction] 94 % Ramesh Brewster MD Work Phone: [facility] 10-16-2024 14:08-0500 Systolic blood pressure 146 mm[Hg] Ramesh Brewster MD Work Phone: [facility] 06-14-2024 13:44-0400 Body mass index (BMI) [Ratio] 38.41 kg/m2 Cole Cheli DISPATCH SUPERVISOR.MANAGER APPOINTMENT Work Phone: [facility] 06-14-2024 13:44-0400 Body weight 101.5 kg Cole Cheli DISPATCH SUPERVISOR.MANAGER APPOINTMENT Work Phone: [facility] 06-14-2024 13:44-0400 Diastolic blood pressure 60 mm[Hg] Cole Cheli DISPATCH SUPERVISOR.MANAGER APPOINTMENT Work Phone: [facility] 06-14-2024 13:44-0400 Heart rate 79 /min Cole Cheli DISPATCH SUPERVISOR.MANAGER APPOINTMENT Work Phone: [facility] 06-14-2024 13:44-0400 SaO2% (BldA) [Mass fraction] 98 % Cole Cheli DISPATCH SUPERVISOR.MANAGER APPOINTMENT Work Phone: [facility] Comment on above: on 2 l/m of O2 06-14-2024 13:44-0400 Systolic blood pressure 100 mm[Hg] Cole Cheli DISPATCH SUPERVISOR.MANAGER APPOINTMENT Work Phone: [facility] 06-08-2024 13:38-0400 Body mass index (BMI) [Ratio] 38.07 kg/m2 Denise Alvarado DISPATCH SUPERVISOR.FELLING MACHINE OPERATOR Work Phone: [facility] 06-08-2024 13:38-0400 Body weight 100.6 kg Denise Alvarado DISPATCH SUPERVISOR.FELLING MACHINE OPERATOR Work Phone: [facility] 06-08-2024 13:38-0400 Diastolic blood pressure 66 mm[Hg] Denise Alvarado DISPATCH SUPERVISOR.FELLING MACHINE OPERATOR Work Phone: [facility] 06-08-2024 13:38-0400 Heart rate 66 /min Denise Alvarado DISPATCH SUPERVISOR.FELLING MACHINE OPERATOR Work Phone: [facility] 06-08-2024 13:38-0400 Respiratory rate 16 /min Denise Alvarado DISPATCH SUPERVISOR.FELLING MACHINE OPERATOR Work Phone: [facility] 06-08-2024 13:38-0400 SaO2% (BldA) [Mass fraction] 99 % Denise Alvarado DISPATCH SUPERVISOR.FELLING MACHINE OPERATOR Work Phone: [facility] 06-08-2024 13:38-0400 Systolic blood pressure 102 mm[Hg] Denise Alvarado DISPATCH SUPERVISOR.FELLING MACHINE OPERATOR Work Phone: [facility] 05-16-2024 13:29-0400 Body height 162.6 cm Cole Cheli DISPATCH SUPERVISOR.MANAGER APPOINTMENT Work Phone: [facility] 05-16-2024 13:29-0400 Body mass index (BMI) [Ratio] 42.53 kg/m2 Cole Cheli DISPATCH SUPERVISOR.MANAGER APPOINTMENT Work Phone: [facility] 05-16-2024 13:29-0400 Body weight 112.4 kg Cole Cheli DISPATCH SUPERVISOR.MANAGER APPOINTMENT Work Phone: [facility] 05-16-2024 13:29-0400 Diastolic blood pressure 62 mm[Hg] Cole Cheli DISPATCH SUPERVISOR.MANAGER APPOINTMENT Work Phone: [facility] 05-16-2024 13:29-0400 Heart rate 73 /min Cole Cheli DISPATCH SUPERVISOR.MANAGER APPOINTMENT Work Phone: [facility] 05-16-2024 13:29-0400 Respiratory rate 18 /min Cole Cheli DISPATCH SUPERVISOR.MANAGER APPOINTMENT Work Phone: [facility] 05-16-2024 13:29-0400 SaO2% (BldA) [Mass fraction] 90 % Cole Cheli DISPATCH SUPERVISOR.MANAGER APPOINTMENT Work Phone: [facility] Comment on above: on O2 at 2 liters via [place] 05-16-2024 13:29-0400 Systolic blood pressure 140 mm[Hg] Cole Cheli DISPATCH SUPERVISOR.MANAGER APPOINTMENT Work Phone: [facility] 03-07-2024 13:59-0400 Body mass index (BMI) [Ratio] 38.79 kg/m2 Brooke Be PA-C Work Phone: [facility] 03-07-2024 13:59-0400 Body weight 102.51 kg Brooke Be PA-C Work Phone: [facility] 02-21-2024 13:34-0400 Body height 162.6 cm Ramesh Brewster MD Work Phone: [facility] 02-21-2024 13:34-0400 Body mass index (BMI) [Ratio] 40.1 kg/m2 Ramesh Brewster MD Work Phone: [facility] 02-21-2024 13:34-0400 Body weight 105.96 kg Ramesh Brewster MD Work Phone: [facility] 02-21-2024 13:34-0400 Diastolic blood pressure 52 mm[Hg] Ramesh Brewster MD Work Phone: [facility] 02-21-2024 13:34-0400 Heart rate 66 /min Ramesh Brewster MD Work Phone: [facility] 02-21-2024 13:34-0400 SaO2% (BldA) [Mass fraction] 97 % Ramesh Brewster MD Work Phone: [facility] 02-21-2024 13:34-0400 Systolic blood pressure 99 mm[Hg] Ramesh Brewster MD Work Phone: [facility] 02-11-2024 13:51-0400 Body mass index (BMI) [Ratio] 39.65 kg/m2 Cole Cheli DISPATCH SUPERVISOR.MANAGER APPOINTMENT Work Phone: [facility] 02-11-2024 13:51-0400 Body weight 104.78 kg Cole Cheli DISPATCH SUPERVISOR.MANAGER APPOINTMENT Work Phone: [facility] 02-11-2024 13:51-0400 Diastolic blood pressure 60 mm[Hg] Cole Cheli DISPATCH SUPERVISOR.MANAGER APPOINTMENT Work Phone: [facility] 02-11-2024 13:51-0400 Heart rate 76 /min Cole Cheli DISPATCH SUPERVISOR.MANAGER APPOINTMENT Work Phone: [facility] 02-11-2024 13:51-0400 SaO2% (BldA) [Mass fraction] 95 % Cole Cheli DISPATCH SUPERVISOR.MANAGER APPOINTMENT Work Phone: [facility] 02-11-2024 13:51-0400 Systolic blood pressure 120 mm[Hg] Cole Cheli DISPATCH SUPERVISOR.MANAGER APPOINTMENT Work Phone: [facility] 01-03-2024 13:33-0400 Body height 162.6 cm Kay Louann DISPATCH SUPERVISOR.MANAGER APPOINTMENT Work Phone: [facility] 01-03-2024 13:33-0400 Body weight 107.05 kg Kya Louann DISPATCH SUPERVISOR.MANAGER APPOINTMENT Work Phone: [facility] 01-03-2024 13:33-0400 Diastolic blood pressure 60 mm[Hg] Kay Louann DISPATCH SUPERVISOR.MANAGER APPOINTMENT Work Phone: [facility] 01-03-2024 13:33-0400 Heart rate 70 /min Kay Louann DISPATCH SUPERVISOR.MANAGER APPOINTMENT Work Phone: [facility] 01-03-2024 13:33-0400 Respiratory rate 14 /min Kay Louann DISPATCH SUPERVISOR.MANAGER APPOINTMENT Work Phone: [facility] 01-03-2024 13:33-0400 SaO2% (BldA) [Mass fraction] 96 % Kay Louann DISPATCH SUPERVISOR.MANAGER APPOINTMENT Work Phone: [facility] 01-03-2024 13:33-0400 Systolic blood pressure 106 mm[Hg] Kay Louann DISPATCH SUPERVISOR.MANAGER APPOINTMENT Work Phone: [facility] 12-10-2023 14:22-0500 Body height 163.5 cm Pulm Wstr Work Phone: [facility] 12-10-2023 14:22-0500 Body weight 106.14 kg Pulm Wstr Work Phone: [facility] 12-10-2023 14:22-0500 Heart rate 78 /min Pulm Wstr Work Phone: [facility] 12-10-2023 14:22-0500 Respiratory rate 14 /min Pulm Wstr Work Phone: [facility] 12-10-2023 14:22-0500 SaO2% (BldA) [Mass fraction] 95 % Pulm Wstr Work Phone: [facility] 12-10-2023 12:50-0500 Body weight 106.23 kg Cole Cheli DISPATCH SUPERVISOR.MANAGER APPOINTMENT Work Phone: [facility] 12-10-2023 12:50-0500 Diastolic blood pressure 64 mm[Hg] Cole Cheli DISPATCH SUPERVISOR.MANAGER APPOINTMENT Work Phone: [facility] 12-10-2023 12:50-0500 Heart rate 80 /min Cole Cheli DISPATCH SUPERVISOR.MANAGER APPOINTMENT Work Phone: [facility] 12-10-2023 12:50-0500 Respiratory rate 20 /min Cole Cheli DISPATCH SUPERVISOR.MANAGER APPOINTMENT Work Phone: [facility] 12-10-2023 12:50-0500 SaO2% (BldA) [Mass fraction] 96 % Cole Cheli DISPATCH SUPERVISOR.MANAGER APPOINTMENT Work Phone: [facility] 12-10-2023 12:50-0500 Systolic blood pressure 132 mm[Hg] Cole Cheli DISPATCH SUPERVISOR.MANAGER APPOINTMENT Work Phone: [facility] 12-01-2023 13:28-0500 Body temperature 98.01 [degF] Brooke Be PA-C Work Phone: [facility] 12-01-2023 13:28-0500 Body weight 107.96 kg Brooke Be PA-C Work Phone: [facility] 12-01-2023 13:28-0500 Diastolic blood pressure 62 mm[Hg] Brooke Be PA-C Work Phone: [facility] 12-01-2023 13:28-0500 Heart rate 72 /min Brooke Be PA-C Work Phone: [facility] 12-01-2023 13:28-0500 SaO2% (BldA) [Mass fraction] 92 % Brooke CIFUENTES-C Work Phone: [facility] 12-01-2023 13:28-0500 Systolic blood pressure 110 mm[Hg] Brooke CIFUENTES-C Work Phone: [facility] 10-11-2023 15:55-0500 Body temperature 97.9 [degF] Sarina Adams MD Work Phone: [facility] 10-11-2023 15:55-0500 Body weight 101.15 kg Sarina Adams MD Work Phone: [facility] 10-11-2023 15:55-0500 Diastolic blood pressure 59 mm[Hg] Sarina Adams MD Work Phone: [facility] 10-11-2023 15:55-0500 Heart rate 78 /min Sarina Adams MD Work Phone: [facility] 10-11-2023 15:55-0500 Respiratory rate 18 /min Sarina Adams MD Work Phone: [facility] 10-11-2023 15:55-0500 SaO2% (BldA) [Mass fraction] 95 % Sarina Adams MD Work Phone: [facility] 10-11-2023 15:55-0500 Systolic blood pressure 101 mm[Hg] Sarina Adams MD Work Phone: [facility] 08-12-2023 20:56-0500 Diastolic blood pressure 86 mm[Hg] [facility] 08-12-2023 20:56-0500 Systolic blood pressure 116 mm[Hg] [facility] 08-12-2023 18:00-0500 Heart rate 65 /min [facility] 08-12-2023 18:00-0500 Respiratory rate 18 /min [facility] 08-12-2023 17:00-0500 SaO2% (BldA) [Mass fraction] 98 % [facility] 08-12-2023 16:37-0500 Inhaled oxygen flow rate 2 L/min [facility] 08-12-2023 14:40-0500 Body height 162.56 cm [facility] 08-12-2023 14:40-0500 Body temperature 96.1 [degF] [facility] 07-22-2023 13:36-0400 Body weight 103.42 kg Denise Alvarado DISPATCH SUPERVISOR.FELLING MACHINE OPERATOR Work Phone: [facility] 07-22-2023 13:36-0400 Diastolic blood pressure 61 mm[Hg] Denise Alvarado DISPATCH SUPERVISOR.FELLING MACHINE OPERATOR Work Phone: [facility] 07-22-2023 13:36-0400 Heart rate 69 /min Denise Alvarado DISPATCH SUPERVISOR.FELLING MACHINE OPERATOR Work Phone: [facility] 07-22-2023 13:36-0400 Respiratory rate 16 /min Denise Alvarado DISPATCH SUPERVISOR.FELLING MACHINE OPERATOR Work Phone: [facility] 07-22-2023 13:36-0400 Systolic blood pressure 97 mm[Hg] Denise Alvarado DISPATCH SUPERVISOR.FELLING MACHINE OPERATOR Work Phone: [facility] 07-01-2023 14:18-0400 Heart rate 75 /min Jaida Soares MD Work Phone: [facility] 07-01-2023 14:18-0400 Respiratory rate 18 /min Jaida Soares MD Work Phone: [facility] 07-01-2023 14:18-0400 SaO2% (BldA) [Mass fraction] 93 % Jaida Soares MD Work Phone: [facility] 06-28-2023 13:54-0400 Body weight 107.05 kg Cole Bower DISPATCH SUPERVISOR.MANAGER APPOINTMENT Work Phone: [facility] 06-28-2023 13:54-0400 Diastolic blood pressure 58 mm[Hg] Cole Barajasr DISPATCH SUPERVISOR.MANAGER APPOINTMENT Work Phone: [facility] 06-28-2023 13:54-0400 Heart rate 69 /min Cole Cheli DISPATCH SUPERVISOR.MANAGER APPOINTMENT Work Phone: [facility] 06-28-2023 13:54-0400 SaO2% (BldA) [Mass fraction] 94 % Cole Cheli DISPATCH SUPERVISOR.MANAGER APPOINTMENT Work Phone: [facility] 06-28-2023 13:54-0400 Systolic blood pressure 108 mm[Hg] Cole Cheli DISPATCH SUPERVISOR.MANAGER APPOINTMENT Work Phone: [facility] 05-24-2023 13:58-0400 Body weight 105.69 kg Denise Avlarado DISPATCH SUPERVISOR.FELLING MACHINE OPERATOR Work Phone: [facility] 05-24-2023 13:58-0400 Diastolic blood pressure 75 mm[Hg] Denise Alvarado DISPATCH SUPERVISOR.FELLING MACHINE OPERATOR Work Phone: [facility] 05-24-2023 13:58-0400 Heart rate 77 /min Denise Alvarado DISPATCH SUPERVISOR.FELLING MACHINE OPERATOR Work Phone: [facility] 05-24-2023 13:58-0400 Respiratory rate 16 /min Denise Alvarado DISPATCH SUPERVISOR.FELLING MACHINE OPERATOR Work Phone: [facility] 05-24-2023 13:58-0400 SaO2% (BldA) [Mass fraction] 95 % Denise Alvarado DISPATCH SUPERVISOR.FELLING MACHINE OPERATOR Work Phone: [facility] 05-24-2023 13:58-0400 Systolic blood pressure 115 mm[Hg] Denise Alvarado DISPATCH SUPERVISOR.FELLING MACHINE OPERATOR Work Phone: [facility] 05-17-2023 11:52-0400 Body weight 107.05 kg Denise Alvarado DISPATCH SUPERVISOR.FELLING MACHINE OPERATOR Work Phone: [facility] 05-17-2023 11:52-0400 Diastolic blood pressure 60 mm[Hg] Denise Alvarado DISPATCH SUPERVISOR.FELLING MACHINE OPERATOR Work Phone: [facility] 05-17-2023 11:52-0400 Heart rate 68 /min Denise Alvarado DISPATCH SUPERVISOR.FELLING MACHINE OPERATOR Work Phone: [facility] 05-17-2023 11:52-0400 Respiratory rate 16 /min Denise Alvarado DISPATCH SUPERVISOR.FELLING MACHINE OPERATOR Work Phone: [facility] 05-17-2023 11:52-0400 SaO2% (BldA) [Mass fraction] 92 % Denise Alvarado DISPATCH SUPERVISOR.FELLING MACHINE OPERATOR Work Phone: [facility] 05-17-2023 11:52-0400 Systolic blood pressure 118 mm[Hg] Denise Alvarado DISPATCH SUPERVISOR.FELLING MACHINE OPERATOR Work Phone: [facility] 04-09-2023 21:54-0400 Diastolic blood pressure 67 mm[Hg] [facility] 04-09-2023 21:54-0400 Heart rate 81 /min [facility] 04-09-2023 21:54-0400 Respiratory rate 23 /min [facility] 04-09-2023 21:54-0400 Systolic blood pressure 93 mm[Hg] [facility] 04-09-2023 20:44-0400 Inhaled oxygen flow rate 4 L/min [facility] 04-09-2023 20:44-0400 SaO2% (BldA) [Mass fraction] 96 % [facility] 04-09-2023 19:43-0400 Body height 162.56 cm [facility] 04-09-2023 19:43-0400 Body temperature 98.2 [degF] [facility] 03-26-2023 14:27-0400 Body temperature 97.39 [degF] Sarina Adams MD Work Phone: [facility] 03-26-2023 14:27-0400 Body weight 106.14 kg Sarina Adams MD Work Phone: [facility] 03-26-2023 14:27-0400 Diastolic blood pressure 60 mm[Hg] Sarina Adams MD Work Phone: [facility] 03-26-2023 14:27-0400 Heart rate 67 /min Sarina Adams MD Work Phone: [facility] 03-26-2023 14:27-0400 Respiratory rate 18 /min Sarina Adams MD Work Phone: [facility] 03-26-2023 14:27-0400 SaO2% (BldA) [Mass fraction] 98 % Sarina Adams MD Work Phone: [facility] 03-26-2023 14:27-0400 Systolic blood pressure 112 mm[Hg] Sarina Adams MD Work Phone: [facility] 01-25-2023 10:00-0400 Body height 162.6 cm Ramesh Brewster MD Work Phone: [facility] 01-25-2023 10:00-0400 Body weight 102.97 kg Ramesh Brewster MD Work Phone: [facility] 01-25-2023 10:00-0400 Diastolic blood pressure 64 mm[Hg] Ramesh Brewster MD Work Phone: [facility] 01-25-2023 10:00-0400 Heart rate 72 /min Ramesh Brewster MD Work Phone: [facility] 01-25-2023 10:00-0400 SaO2% (BldA) [Mass fraction] 91 % Ramesh Brewster MD Work Phone: [facility] 01-25-2023 10:00-0400 Systolic blood pressure 114 mm[Hg] Ramesh Brewster MD Work Phone: [facility] 01-15-2023 14:15-0400 Body weight 105.23 kg Cole Cheli DISPATCH SUPERVISOR.MANAGER APPOINTMENT Work Phone: [facility] 01-15-2023 14:15-0400 Diastolic blood pressure 54 mm[Hg] Cole Cheli DISPATCH SUPERVISOR.MANAGER APPOINTMENT Work Phone: [facility] 01-15-2023 14:15-0400 Heart rate 66 /min Cole Cheli DISPATCH SUPERVISOR.MANAGER APPOINTMENT Work Phone: [facility] 01-15-2023 14:15-0400 SaO2% (BldA) [Mass fraction] 93 % Cole Cheli DISPATCH SUPERVISOR.MANAGER APPOINTMENT Work Phone: [facility] 01-15-2023 14:15-0400 Systolic blood pressure 100 mm[Hg] Cole Cheli DISPATCH SUPERVISOR.MANAGER APPOINTMENT Work Phone: [facility] 01-05-2023 21:38-0400 Diastolic blood pressure 66 mm[Hg] [facility] 01-05-2023 21:38-0400 Heart rate 79 /min [facility] 01-05-2023 21:38-0400 Respiratory rate 18 /min [facility] 01-05-2023 21:38-0400 SaO2% (BldA) [Mass fraction] 95 % [facility] 01-05-2023 21:38-0400 Systolic blood pressure 128 mm[Hg] [facility] 01-05-2023 20:02-0400 Inhaled oxygen flow rate 3 L/min [facility] 01-05-2023 19:23-0400 Body mass index (BMI) [Ratio] 41.7 kg/m2 [facility] 01-05-2023 19:23-0400 Body weight 110.2 kg [facility] 01-05-2023 19:03-0400 Body temperature 96.8 [degF] [facility] 12-18-2022 13:34-0400 Body weight 105.87 kg Cole Cheli DISPATCH SUPERVISOR.MANAGER APPOINTMENT Work Phone: [facility] 12-18-2022 13:34-0400 Diastolic blood pressure 74 mm[Hg] Cole Cheli DISPATCH SUPERVISOR.MANAGER APPOINTMENT Work Phone: [facility] 12-18-2022 13:34-0400 Heart rate 81 /min Cole Cheli DISPATCH SUPERVISOR.MANAGER APPOINTMENT Work Phone: [facility] 12-18-2022 13:34-0400 Respiratory rate 18 /min Cole Cheli DISPATCH SUPERVISOR.MANAGER APPOINTMENT Work Phone: [facility] 12-18-2022 13:34-0400 SaO2% (BldA) [Mass fraction] 93 % Cole Cheli DISPATCH SUPERVISOR.MANAGER APPOINTMENT Work Phone: [facility] 12-18-2022 13:34-0400 Systolic blood pressure 126 mm[Hg] Cole Cheli DISPATCH SUPERVISOR.MANAGER APPOINTMENT Work Phone: [facility] 10-26-2022 14:11-0500 Diastolic blood pressure 58 mm[Hg] Brooke Indiana PA-C Work Phone: [facility] 10-26-2022 14:11-0500 Heart rate 81 /min Brooke Indiana PA-C Work Phone: [facility] 10-26-2022 14:11-0500 Respiratory rate 16 /min Brooke Indiana PA-C Work Phone: [facility] 10-26-2022 14:11-0500 SaO2% (BldA) [Mass fraction] 98 % Brooke Indiana PA-C Work Phone: [facility] 10-26-2022 14:11-0500 Systolic blood pressure 104 mm[Hg] Brooke Indiana PA-C Work Phone: [facility] 10-21-2022 14:51-0500 Body weight 101.15 kg Jerrica Duenas DISPATCH SUPERVISOR.MANAGER APPOINTMENT Work Phone: [facility] 09-29-2022 11:11-0500 Body height 162.6 cm Pete Poole PA-C Work Phone: [facility] 09-29-2022 11:11-0500 Body temperature 97.7 [degF] Pete Poole PA-C Work Phone: [facility] 09-29-2022 11:11-0500 Body weight 95.25 kg Pete Poole PA-C Work Phone: [facility] 09-29-2022 11:11-0500 Diastolic blood pressure 60 mm[Hg] Pete Poole PA-C Work Phone: [facility] 09-29-2022 11:11-0500 Heart rate 86 /min Pete Poole PA-C Work Phone: [facility] 09-29-2022 11:11-0500 Respiratory rate 20 /min Pete Poole PA-C Work Phone: [facility] 09-29-2022 11:11-0500 SaO2% (BldA) [Mass fraction] 100 % Pete Poole PA-C Work Phone: [facility] 09-29-2022 11:11-0500 Systolic blood pressure 104 mm[Hg] Pete Poole PA-C Work Phone: [facility] 08-28-2022 13:52-0500 Body weight 92.99 kg Monty Douglas MD Work Phone: [facility] 08-28-2022 13:52-0500 Diastolic blood pressure 61 mm[Hg] Monty Douglas MD Work Phone: [facility] 08-28-2022 13:52-0500 Heart rate 76 /min Monty Douglas MD Work Phone: [facility] 08-28-2022 13:52-0500 Systolic blood pressure 93 mm[Hg] Monty Douglas MD Work Phone: [facility] 08-10-2022 01:55-0500 Diastolic blood pressure 65 mm[Hg] Dr. Sarina Adams Work Phone: [facility] Work Phone: 08-10-2022 01:55-0500 Heart rate 109 /min Dr. Sarina Adams Work Phone: [facility] Work Phone: 08-10-2022 01:55-0500 Inhaled oxygen flow rate 2 L/min Dr. Sarina Adams Work Phone: [facility] Work Phone: 08-10-2022 01:55-0500 Respiratory rate 20 /min Dr. Sarina Adams Work Phone: [facility] Work Phone: 08-10-2022 01:55-0500 SaO2% (BldA) [Mass fraction] 97 % Dr. Sarina Adams Work Phone: [facility] Work Phone: 08-10-2022 01:55-0500 Systolic blood pressure 113 mm[Hg] Dr. Sarina Adams Work Phone: [facility] Work Phone: 08-10-2022 01:22-0500 Body temperature 101.5 [degF] Dr. Sarina Adams Work Phone: [facility] Work Phone: 08-09-2022 22:02-0500 Body height 162.[address] Sarina Adams Work Phone: [facility] Work Phone: 08-09-2022 22:02-0500 Body mass index (BMI) [Ratio] 35.6 kg/m2 Dr. Sarina Adams Work Phone: [facility] Work Phone: 08-09-2022 22:02-0500 Body weight 94.[address] Sarina Adams Work Phone: [facility] Work Phone: 07-21-2022 14:17-0400 Body weight 90.72 kg Rosana Navarro MD Work Phone: [facility] 07-21-2022 14:17-0400 Diastolic blood pressure 62 mm[Hg] Rosana Navarro MD Work Phone: [facility] 07-21-2022 14:17-0400 Heart rate 84 /min Rosana Navarro MD Work Phone: [facility] 07-21-2022 14:17-0400 Respiratory rate 16 /min Rosana Navarro MD Work Phone: [facility] 07-21-2022 14:17-0400 SaO2% (BldA) [Mass fraction] 95 % Rosana Navarro MD Work Phone: [facility] 07-21-2022 14:17-0400 Systolic blood pressure 104 mm[Hg] Rosana Navarro MD Work Phone: [facility] 07-03-2022 12:55-0400 Diastolic blood pressure 61 mm[Hg] Monty Douglas MD Work Phone: [facility] 07-03-2022 12:55-0400 Systolic blood pressure 94 mm[Hg] Monty Douglas MD Work Phone: [facility] 07-03-2022 12:51-0400 Body height 162.6 cm Monty Douglas MD Work Phone: [facility] 07-03-2022 12:51-0400 Body weight 90.72 kg Monty Douglas MD Work Phone: [facility] 07-03-2022 12:51-0400 Heart rate 69 /min Monty Douglas MD Work Phone: [facility] 06-26-2022 15:01-0400 Body temperature 97.3 [degF] Sarina Adams MD Work Phone: [facility] 06-26-2022 15:01-0400 Body weight 91.99 kg Sarina Adams MD Work Phone: [facility] 06-26-2022 15:01-0400 Diastolic blood pressure 60 mm[Hg] Sarina Adams MD Work Phone: [facility] 06-26-2022 15:01-0400 Heart rate 81 /min Sarina Adams MD Work Phone: [facility] 06-26-2022 15:01-0400 Respiratory rate 18 /min Sarina Adams MD Work Phone: [facility] 06-26-2022 15:01-0400 SaO2% (BldA) [Mass fraction] 97 % Sarina Adams MD Work Phone: [facility] 06-26-2022 15:01-0400 Systolic blood pressure 118 mm[Hg] Sarina Adams MD Work Phone: [facility] 04-01-2022 17:00-0400 Body weight 86.18 kg Sarina Adams MD Work Phone: [facility] 04-01-2022 17:00-0400 Diastolic blood pressure 68 mm[Hg] Sarina Adams MD Work Phone: [facility] 04-01-2022 17:00-0400 Heart rate 84 /min Sarina Adams MD Work Phone: [facility] 04-01-2022 17:00-0400 SaO2% (BldA) [Mass fraction] 95 % Sarina Adams MD Work Phone: [facility] 04-01-2022 17:00-0400 Systolic blood pressure 102 mm[Hg] Sarina Adams MD Work Phone: [facility] 02-25-2022 08:58-0400 Body temperature 98.2 [degF] Michael Pendlebury DISPATCH SUPERVISOR.MANAGER APPOINTMENT Work Phone: [facility] 02-25-2022 08:58-0400 Body weight 86.09 kg Michael Pendlebury DISPATCH SUPERVISOR.MANAGER APPOINTMENT Work Phone: [facility] 02-25-2022 08:58-0400 Diastolic blood pressure 72 mm[Hg] Michael Pendlebury DISPATCH SUPERVISOR.MANAGER APPOINTMENT Work Phone: [facility] 02-25-2022 08:58-0400 Heart rate 84 /min Michael Pendlebury DISPATCH SUPERVISOR.MANAGER APPOINTMENT Work Phone: [facility] 02-25-2022 08:58-0400 Respiratory rate 18 /min Michael Pendlebury DISPATCH SUPERVISOR.MANAGER APPOINTMENT Work Phone: [facility] 02-25-2022 08:58-0400 SaO2% (BldA) [Mass fraction] 98 % Michael Pendlebury DISPATCH SUPERVISOR.MANAGER APPOINTMENT Work Phone: [facility] 02-25-2022 08:58-0400 Systolic blood pressure 112 mm[Hg] Michael Pendlebury DISPATCH SUPERVISOR.MANAGER APPOINTMENT Work Phone: [facility] Encounters Encounter Date Encounter Type Care Provider Facility Start: 08-09-2025 End: 08-09-2025 ambulatory [facility] Facility:[facility] Start: 08-09-2025 End: 08-09-2025 ambulatory [facility] Facility:[facility] Start: 08-01-2025 End: 08-03-2025 Evaluation and management of inpatient Sarina D Talampas Facility:[facility] Start: 08-01-2025 ambulatory Sarina D Talampas Facilit y:[facility] Start: 07-12-2025 Non-patient / Non-visit Dr. Asya yu MD [facility] Work Phone: Start: 07-11-2025 Non-patient / Non-visit Dr. Asya yu MD [facility] Work Phone: Start: 07-10-2025 ambulatory Sarina D Talampas Facilit y:[facility] Start: 07-10-2025 Non-patient / Non-visit Dr. Tiffany DUNNE [facility] Start: 07-10-2025 Non-patient / Non-visit Dr. Asya yu MD [facility] Work Phone: Start: 07-09-2025 Non-patient / Non-visit Dr. Tavo irby [facility] Work Phone: Start: 07-09-2025 ambulatory Sarina D Talampas Facilit y:[facility] Start: 07-09-2025 End: 07-12-2025 Evaluation and management of inpatient Dr. Tavo Nielson DO [facility] Work Phone: Start: 07-09-2025 End: 07-10-2025 ambulatory SARINA D TALAMPAS Facility:[facility] Start: 07-09-2025 End: 07-09-2025 ambulatory SELF Facility:[facility] Start: 07-03-2025 End: 07-03-2025 ambulatory [facility] Facility:[facility] Start: 07-03-2025 End: 07-03-2025 ambulatory [facility] Facility:[facility] Start: 06-11-2025 End: 06-11-2025 Refill Sarina D Talampas MD Work Phone: [facility] [place] Comment on above: Refill Request Start: 06-07-2025 End: 06-14-2025 Refill Sarina Adams MD Work Phone: [facility] [place] Comment on above: Refill Request Start: 05-29-2025 End: 05-29-2025 Office outpatient visit 25 minutes [facility] DISPATCH SUPERVISOR.FELLING MACHINE OPERATOR Work Phone: [facility] [place] Comment on above: Edema, unspecified t ype (Primary Dx); Acquired hypothyroidism; 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); Encounter for immunization; Screening for diabetic retinopathy; Screening for cervical cancer; Screening for colon cancer; Weight gain Start: 05-29-2025 End: 05-29-2025 [facility] Facility:[facility] Start: 05-22-2025 End: 05-22-2025 Office outpatient visit 25 minutes [facility] DISPATCH SUPERVISOR.FELLING MACHINE OPERATOR Work Phone: [facility] [place] Comment on above: Weight gain (Primary Dx); Edema, unspecified type; Acquired hypothyroidism; Encounter for immunization; Screening for diabetic retinopathy; Screening for cervical cancer; Screening for colon cancer; Malignant neoplasm of thymus (HCC); Myasthenia gravis (HCC); Platelet disorder (HCC); Hypokalemia Start: 05-22-2025 End: 05-22-2025 [facility] Facility:[facility] Start: 05-21-2025 End: 05-21-2025 Refill Ericka Zamora [...] Sarina Adams MD Work Phone: [facility] [place] Comment on above: Refill Request Start: 04-09-2025 End: 04-10-2025 Refill Sarina Adams MD Work Phone: [facility] [place] Comment on above: Refill Request Start: 04-05-2025 End: 04-07-2025 Refill Sarina Adams MD Work Phone: [facility] [place] Comment on above: Refill Request Start: 03-28-2025 End: 03-28-2025 Patient encounter procedure Cole Bower APRN.CNP Work Phone: [facility] [place] Comment on above: Right-sided chest pa in [...] Start: 03-28-2025 End: 03-28-2025 ambulatory COLE BOWER Facility:[facility] Start: 03-28-2025 End: 03-29-2025 Telephone encounter Sarina [...] Sarina Adams MD Work Phone: [facility] [place] Comment on above: Refill Request Start: 02-28-2025 End: 03-01-2025 Telephone encounter Sarina Adams MD Work Phone: [facility] [place] Comment on above: Medication Problem ( [facility] closing need all sent to [facility] [place]); Diabetes Start: 02-08-2025 End: 02-09-2025 Refill Sarina Adams MD Work Phone: [facility] [place] Comment on above: Refill Request Start: 02-05-2025 End: 02-05-2025 Refill Sarina Adams MD Work Phone: [facility] [place] Comment on above: Refill Request Start: 01-19-2025 End: 01-19-2025 Refill Sarina Adams MD Work Phone: [address] [place] [address] Comment on above: Refill Request Start: 01-07-2025 End: 01-08-2025 Refill [facility] DISPATCH SUPERVISOR.FELLING MACHINE OPERATOR Work Phone: [facility] [place] Comment on above: Refill Request Start: 12-25-2024 End: 12-25-2024 Refill Sarina Adams MD Work Phone: [address] [place] [address] Comment on above: Refill Request Spirometry Start: 12-14-2024 End: 02-13-2025 Refill Sarina Adams MD Work Phone: [facility] [place] Comment on above: Refill Request Start: 12-12-2024 End: 12-12-2024 Orders Only Alicja Walsh DISPATCH SUPERVISOR.MANAGER APPOINTMENT Work Phone: [facility] Comment on above: Personal history of tobacco use, presenting hazards to health (Primary Dx) Start: 12-11-2024 End: 12-11-2024 Telephone encounter Sarina Adams MD Work Phone: [facility] [place] Comment on above: Insurance Authorizat ion ([employer] ) Refill Request Start: 12-08-2024 End: 12-08-2024 ambulatory [facility] Facility:[facility] Start: 12-08-2024 End: 12-08-2024 Office outpatient visit 25 minutes Denise Alvaradoguanakito [place] Work Phone: [facility] [place] Comment on above: Acquired hypothyroid ism (Primary Dx); Chronic midline low back pain, unspecified whether sciatica present; Chronic SI joint pain; 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) Start: 12-07-2024 End: 12-12-2024 Follow-up encounter Sally Villa MD Work Phone: Geriatrics Start: 12-06-2024 End: 12-06-2024 ambulatory SARINA ADAMS Facility:[facility] Start: 12-06-2024 End: 12-06-2024 Patient encounter procedure [...] Sally Villa MD Work Phone: [facility] [place] Comment on above: Localized swelling o f left lower extremity (Primary Dx); UTI symptoms; Hyponatremia; Pedal edema; Hypoalbuminemia; Weight gain; Fatigue, unspecified type Start: 11-28-2024 End: 11-28-2024 ambulatory SARINA ADAMS Facility:[facility] Start: 11-24-2024 End: 12-08-2024 ambulatory Sarina Adams MD Work Phone: [facility] [place] Comment on above: Diabetes Start: 11-20-2024 End: 11-20-2024 Telephone encounter Sarina Adams MD Work Phone: [facility] [place] Comment on above: Appointment Start: 10-27-2024 End: 10-27-2024 Emergency department patient visit [facility] Facility:[facility] Start: 10-27-2024 End: 11-06-2024 Telephone encounter [facility] Comment on above: Patient Update Start: 10-24-2024 End: 10-25-2024 Telephone encounter Sarina Adams MD Work Phone: [facility] [place] Comment on above: swelling/future apt Start: 10-19-2024 End: 10-19-2024 Refill Sarina Adams MD Work Phone: [facility] [place] Comment on above: Refill Request Start: 10-17-2024 End: 11-17-2024 ambulatory Sarina Adams MD Work Phone: [facility] [place] Start: 10-16-2024 End: 10-16-2024 ambulatory [facility] Facility:[facility] Start: 10-16-2024 End: 10-16-2024 Patient encounter procedure Ramesh Brewster MD Work Phone: Cardiology Comment on above: Pericardial effusion (Primary Dx); Chronic diastolic congestive heart failure (HCC); Essential hypertension; Mixed hyperlipidemia; PÉREZ (dyspnea on exertion) Start: 10-09-2024 End: 10-12-2024 Refill Sarina Adams MD Work Phone: [facility] Comment on above: Refill Request Start: 09-19-2024 End: 09-19-2024 Emergency department patient visit [facility] Facility:[facility] Start: 09-13-2024 End: 09-13-2024 Refill Sarina Adams MD Work Phone: [facility] [place] Comment on above: Refill Request Start: 09-08-2024 End: 09-11-2024 Refill Sarina Adams MD Work Phone: [facility] [place] Comment on above: Refill Request Start: 08-21-2024 End: 08-22-2024 Telephone encounter Sarina Adams MD Work Phone: [facility] Comment on above: Orders Start: 08-11-2024 End: 08-11-2024 Refill Sarina Adams MD Work Phone: [facility] [place] Comment on above: Refill Request Start: 08-01-2024 End: 08-01-2024 Home visit Sarina Adams MD Work Phone: [facility] [place] Comment on above: Hypertensive chronic kidney disease, unspecified CKD stage (Primary Dx) Start: 07-19-2024 End: 07-19-2024 Refill Sarina Adams MD Work Phone: [facility] [place] Comment on above: Refill Request Start: 07-17-2024 End: 07-17-2024 Telephone encounter Carminaalex [facility] Work Phone: [facility] Comment on above: Missed Appointment Start: 07-12-2024 End: 07-12-2024 Telephone encounter Sarina Adams MD Work Phone: Internal [facility] [place] Comment on above: Rx refill; not on cu rrent med list Start: 07-10-2024 End: 07-10-2024 Telephone encounter Carmina Bauerwendienenosijoaquin [facility] Work Phone: [facility] Comment on above: Missed Appointment Appointment Start: 07-07-2024 End: 07-24-2024 Telephone encounter Carmina Bauerjourdan [facility] Work Phone: [facility] Comment on above: Missed Appointment Patient Update Start: 07-05-2024 End: 07-05-2024 Telephone encounter Sarina Adams MD Work Phone: Internal [facility] [place] Comment on above: [facility] OT update POC Start: 07-03-2024 End: 07-03-2024 Telephone encounter Klaus Hernandez MD Work Phone: Orthopaedics Comment on above: Orders Start: 06-26-2024 End: 06-26-2024 Subsequent hospital visit by physician Zac [facility] [place] Work Phone: Radiology Comment on above: Other closed nondisp laced fracture of proximal end of left humerus, initial encounter [S42.295A] Start: 06-26-2024 End: 06-27-2024 Telephone encounter Denise Alvarado ODILON.FELLING MACHINE OPERATOR Work Phone: [facility] [place] Comment on above: Results Start: 06-26-2024 End: 06-26-2024 Patient encounter procedure Klaus Hernandez MD Work Phone: Orthopaedics Comment on above: Other closed nondisp laced fracture of proximal end of left humerus, initial encounter (Primary Dx); Injury of left rotator cuff, subsequent encounter Start: 06-19-2024 End: 06-20-2024 Telephone encounter Cole Bower APRN.MANAGER APPOINTMENT Work Phone: Internal [facility] [place] Comment on above: Results; Appointment Start: 06-16-2024 End: 06-16-2024 Telephone encounter Sarina Adams MD Work Phone: Internal [facility] [place] Comment on above: Insurance Authorizat ion Start: 06-14-2024 End: 06-14-2024 Patient encounter procedure Cole Bower DISPATCH SUPERVISOR.MANAGER APPOINTMENT Work Phone: [facility] [place] Comment on above: Injury of left rotat or cuff, subsequent encounter (Primary Dx); Chronic midline low back pain, unspecified whether sciatica present; Chronic SI joint pain; Debility; JOSIE (acute kidney injury) (HCC); Type 2 diabetes mellitus with diabetic neuropathy, with long-term current use of insulin (HCC); Acquired hypothyroidism; Essential hypertension Start: 06-14-2024 End: 06-14-2024 Subsequent hospital visit by physician Zac [facility] [place] Work Phone: Radiology Comment on above: Injury [...] Sarina Adams MD Work Phone: [facility] [place] Comment on above: Medication Question Refill Request Start: 06-08-2024 End: 06-08-2024 Office outpatient visit 25 minutes Denise Alvarado APRN.CNS Work Phone: [facility] [place] Comment on above: JOSIE (acute kidney in [...] Start: 06-06-2024 End: 06-08-2024 Refill Cole Bower APRN.MANAGER APPOINTMENT Work Phone: [facility] [place] Comment on above: Refill Request Patient Update Start: 06-02-2024 End: 06-07-2024 Telephone encounter Sarina Adams MD Work Phone: [facility] [place] Comment on above: Patient Update Start: 06-02-2024 End: 06-02-2024 Patient encounter procedure Carmina Shell [facility] Work Phone: [facility] Comment on above: Type 2 diabetes (HCC ) (Primary Dx); Poorly controlled type 2 diabetes mellitus (HCC) Start: 06-02-2024 End: 06-02-2024 Telemedicine consultation with patient Carmina Bauerjourdan [facility] Work Phone: [facility] Start: 05-26-2024 End: 06-06-2024 Telephone encounter Sarina Adams MD Work Phone: [facility] [place] Comment on above: Patient Update Start: 05-25-2024 End: 05-25-2024 Telephone encounter Sarina Adams MD Work Phone: Family Medicine [place] Comment on above: Orders Start: 05-24-2024 End: 05-24-2024 Telephone encounter Sarina Adams MD Work Phone: [facility] [place] Comment on above: Orders Start: 05-23-2024 End: 05-24-2024 Telephone encounter Sarina Adams MD Work Phone: [facility] [place] Comment on above: Patient Question Start: 05-22-2024 End: 05-22-2024 Telephone encounter Sarina Adams MD Work Phone: Family Medicine [place] Comment on above: Orders Start: 05-19-2024 Telephone encounter Cole chew DISPATCH SUPERVISOR.MANAGER APPOINTMENT Work Phone: Internal [facility] [place] Comment on above: Results Start: 05-18-2024 Telephone encounter Sarina costa MD Work Phone: Internal [facility] [place] Comment on above: OT plan of care Start: 05-16-2024 End: 05-16-2024 ambulatory Pulm Lab [facility] Work Phone: PULM LAB [facility] Comment on above: Spirometry Start: 05-16-2024 End: 05-16-2024 Patient encounter procedure Pulm Lab [facility] Work Phone: PULM LAB [facility] Start: 05-16-2024 End: 05-16-2024 Patient encounter procedure Cole Bower DISPATCH SUPERVISOR.MANAGER APPOINTMENT Work Phone: [facility] [place] Comment on above: Injury of left rotat [...] Sarina costa MD Work Phone: [facility] [place] Comment on above: Patient Update Start: 05-12-2024 Refill Sarina garcia MD Work Phone: [facility] [place] Comment on above: Refill Request Start: 05-11-2024 Telephone encounter Sarina costa MD Work Phone: [facility] [place] Comment on above: Physical Therapy Omayra n of Care Start: 05-09-2024 Telephone encounter Sarina costa MD Work Phone: [facility] [place] Comment on above: [facility] HH, verbal order (requesting delay of care/) Start: 05-04-2024 Refill Sarina garcia MD Work Phone: [facility] [place] Comment on above: Refill Request Start: 05-03-2024 Telephone encounter Sarina costa MD Work Phone: [facility] [place] Comment on above: Okay to follow Home Health PT/OT Start: 04-25-2024 Refill Brooke Ribera PA-C Work Phone: Pulmonary Medicine Comment on above: Refill Request Start: 04-11-2024 Refill Sarina garcia MD Work Phone: [facility] [place] Comment on above: Refill Request Start: 04-10-2024 Refill Sarina garcia MD Work Phone: Family Medicine [place] Comment on above: Refill Request Medication Request Start: 03-31-2024 End: 03-31-2024 Patient encounter procedure Carmina Sylvester [facility] Work Phone: [facility] Comment on above: Type 2 diabetes (HCC ) (Primary Dx); 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) Refill Request Start: 03-31-2024 Telephone encounter Carmina Sylvester [facility] Work Phone: [facility] Comment on above: Missed Appointment Start: 03-31-2024 End: 03-31-2024 Telemedicine consultation with patient Carmina Shell [facility] Work Phone: [facility] Start: 03-08-2024 Refill Sarina garcia MD Work Phone: Internal [facility] [place] Comment on above: Refill Request Start: 03-07-2024 End: 03-07-2024 Patient encounter procedure Brooke Be PA-C Work Phone: Pulmonary Medicine Comment on above: Post-COVID chronic d yspnea (Primary Dx); Former smoker; Chronic hypoxemic respiratory failure (HCC); Obesity, Class II, BMI 35-39.9 Start: 03-06-2024 Telephone encounter Sarina costa MD Work Phone: [facility] Comment on above: Erroneous encounter- disregard Start: 03-03-2024 Orders Only Sarina garcia MD Work Phone: [facility] [place] Start: 03-03-2024 Telephone encounter Sarina costa MD Work Phone: [facility] [place] Comment on above: Insurance Authorizat ion Start: 02-29-2024 Telephone encounter Sarina costa MD Work Phone: [facility] [place] Comment on above: Insurance Authorizat ion Start: 02-25-2024 Refill Sarina garcia MD Work Phone: [facility] Comment on above: Med Change Request Start: 02-25-2024 Telephone encounter Carmina Sylvester [facility] Work Phone: [facility] Comment on above: Medication Problem ( Needs sliding scale directions) Start: 02-24-2024 End: 02-24-2024 Patient encounter procedure Carmina Bauerwendienenosaleemjoaquin [facility] Work Phone: [facility] Comment on above: Type 2 diabetes (HCC ) (Primary Dx); 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); Poorly controlled type 2 diabetes mellitus (HCC) Start: 02-24-2024 End: 02-24-2024 Telemedicine consultation with patient Carmina Sylvester [facility] Work Phone: [facility] Start: 02-21-2024 End: 02-21-2024 Patient encounter procedure Ramesh Brewster MD Work Phone: Cardiology Comment on above: Pericardial effusion (Primary Dx); Essential hypertension; Mixed hyperlipidemia Start: 02-17-2024 Telephone encounter Pharmacist [facility] Comment on above: Appointment (Primary Care Pharmacy) Start: 02-16-2024 ambulatory Pat Iqbal RP h Work Phone: [facility] Start: 02-16-2024 Patient encounter procedure Pat Iqbal [facility] Work Phone: [facility] Start: 02-14-2024 Telephone encounter Cole chew DISPATCH SUPERVISOR.MANAGER APPOINTMENT Work Phone: [facility] [place] Comment on above: Results Start: 02-11-2024 End: 02-11-2024 Patient encounter procedure Cole Barajasr DISPATCH SUPERVISOR.MANAGER APPOINTMENT Work Phone: Internal [facility] [place] Comment on [...] Question Start: 02-08-2024 Orders Only Kay chew DISPATCH SUPERVISOR.MANAGER APPOINTMENT Work Phone: Pulmonary Medicine Comment on above: Former smoker (Prima ry Dx) Start: 02-08-2024 Refill Cole Cheli DISPATCH SUPERVISOR.MANAGER APPOINTMENT Work Phone: [facility] [place] Comment on above: Refill Request Start: 02-07-2024 Refill Cole Cheli DISPATCH SUPERVISOR.MANAGER APPOINTMENT Work Phone: [facility] [place] Comment on above: Refill Request Start: 02-06-2024 Refill Cole Cheli DISPATCH SUPERVISOR.MANAGER APPOINTMENT Work Phone: Internal [facility] [place] Comment on above: Refill Request Start: 02-02-2024 End: 02-02-2024 Subsequent hospital visit by physician [facility] ([facility]) Work Phone: Cat Scan Comment on above: Encounter for screen ing for lung cancer [Z12.2] Start: 01-09-2024 Refill Denise Alvarado DISPATCH SUPERVISOR.FELLING MACHINE OPERATOR Work Phone: Internal [facility] [place] Comment on above: Refill Request Start: 01-06-2024 Refill Cole Bower DISPATCH SUPERVISOR.MANAGER APPOINTMENT Work Phone: [facility] [place] Comment on above: Refill Request Start: 01-03-2024 End: 01-03-2024 Patient encounter procedure Kay Paredes DISPATCH SUPERVISOR.MANAGER APPOINTMENT Work Phone: Pulmonary Medicine Comment on above: Encounter for screen ing for lung cancer (Primary Dx); Former smoker Start: 12-16-2023 Refill Cole Bower DISPATCH SUPERVISOR.MANAGER APPOINTMENT Work Phone: [facility] Comment on above: Refill Request Start: 12-10-2023 End: 12-10-2023 ambulatory Pulm Lab [facility] Work Phone: PULM LAB [facility] Comment on above: Spirometry Start: 12-10-2023 Telephone encounter Sarina costa MD Work Phone: Internal Medicine [place] Comment on above: Insurance Authorizat ion Start: 12-10-2023 End: 12-10-2023 Patient encounter procedure Pulm Lab [facility] Work Phone: [place] [facility] Comment on above: Type 2 diabetes evy [...] drug monitoring Start: 12-08-2023 Refill Cole Bower DISPATCH SUPERVISOR.MANAGER APPOINTMENT Work Phone: [facility] [place] Comment on above: Refill Request Start: 12-06-2023 Refill Denise Alvarado DISPATCH SUPERVISOR.FELLING MACHINE OPERATOR Work Phone: Internal [facility] [place] Comment on above: Refill Request Start: 12-01-2023 End: 12-01-2023 Office outpatient visit 15 minutes Brooke Be PA-C Work Phone: Pulmonary Medicine Comment on above: Post-COVID chronic d yspnea (Primary Dx); Exertional dyspnea; Former smoker Start: 11-14-2023 Refill Ericka grover OD Work Phone: Ophthalmology Comment on above: Refill Request Start: 11-10-2023 ambulatory Sarina garcia MD Work Phone: [facility] [place] Start: 11-07-2023 Refill Sarina garcia MD Work Phone: Internal [facility] [place] Comment on above: Refill Request Start: 10-28-2023 End: 10-28-2023 Subsequent hospital visit by physician Xr 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 (HCC) (Primary Dx); Chronic SI joint pain; Acquired hypothyroidism; Vitamin D deficiency; Chronic midline low back pain, unspecified whether sciatica present Start: 09-14-2023 Refill Cole Cheli DISPATCH SUPERVISOR.MANAGER APPOINTMENT Work Phone: Internal [facility] [place] Comment on above: Refill Request Start: 09-13-2023 Refill Sarina garcia MD Work Phone: Internal [facility] [place] Comment on above: Refill Request Start: 09-11-2023 Refill Cole Cheli DISPATCH SUPERVISOR.MANAGER APPOINTMENT Work Phone: Internal [facility] [place] Comment on above: Refill Request Start: 09-04-2023 Refill Cole Cheli DISPATCH SUPERVISOR.MANAGER APPOINTMENT Work Phone: Internal [facility] [place] Comment on above: Refill Request Start: 08-12-2023 End: 08-12-2023 Emergency department patient visit [facility] Work Phone: Start: 08-12-2023 [...] gravis (HCC) Start: 07-29-2023 Refill Jerrica Duenas DISPATCH SUPERVISOR.MANAGER APPOINTMENT Work Phone: Endocrinology Comment on above: Med Change Request Start: 07-24-2023 Refill Sarina garcia MD Work Phone: Internal [facility] [place] Comment on above: Refill Request Start: 07-22-2023 End: 07-22-2023 Office outpatient visit 25 minutes Denise Alvarado DISPATCH SUPERVISOR.FELLING MACHINE OPERATOR Work Phone: Internal [facility] [place] Comment on above: Encounter for immuni zation [...] Start: 07-01-2023 End: 07-01-2023 ambulatory JAIDA SOARES Facility:[facility] Start: 07-01-2023 End: 07-01-2023 Subsequent hospital visit by physician Zac [facility] [place] Work Phone: Radiology Comment on above: Lumbar spondylosis [ M47.816] Start: 07-01-2023 End: 07-01-2023 Patient encounter procedure Jaida Soares MD Work Phone: [facility] Comment on above: Lumbar spondylosis ( Primary Dx); Myofascial pain Start: 06-29-2023 Telephone encounter Cole chew APRN.MANAGER APPOINTMENT Work Phone: Internal [facility] [place] Comment on above: Results Start: 06-28-2023 End: 06-28-2023 Patient encounter procedure Cole Bower APRN.MANAGER APPOINTMENT Work Phone: Internal Medicine [place] Comment on [...] 05-24-2023 Subsequent hospital visit by physician Zac [facility] [place] Work Phone: Radiology Comment on above: Fall, initial encoun ter [W19.XXXA] Start: 05-24-2023 End: 05-24-2023 Office outpatient visit 25 minutes Denise Alvarado APRN.FELLING MACHINE OPERATOR Work Phone: Internal Medicine [place] Comment on above: Pericardial effusion (Primary Dx); Fall, initial encounter; Right arm pain; Right hand pain; Acquired hypothyroidism; Vitamin D deficiency; Weight gain; Leg swelling Start: 05-22-2023 Refill Denise Alvarado APRN.FELLING MACHINE OPERATOR Work Phone: Internal Medicine [place] Comment on above: Refill Request Start: 05-19-2023 End: 05-19-2023 Subsequent hospital visit by physician Zac [facility] [place] Work Phone: Radiology Comment on above: Dyspnea and respirat ory abnormalities [R06.00, R06.89] Start: 05-17-2023 End: 05-17-2023 Office outpatient visit 25 minutes Denise Alvarado DISPATCH SUPERVISOR.FELLING MACHINE OPERATOR Work Phone: Internal Medicine [place] Comment on above: Pericardial effusion (Primary Dx); Weight gain; Acquired hypothyroidism; 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); Leg swelling Start: 05-11-2023 Refill Ericka grover OD Work Phone: Ophthalmology Comment on above: Refill Request Start: 04-30-2023 Telephone encounter Denise Lubinjoaquin martins DISPATCH SUPERVISOR.FELLING MACHINE OPERATOR Work Phone: Internal [facility] [place] Comment on above: Results Start: 04-29-2023 Refill Sarina garcia MD Work Phone: Internal Medicine [place] Comment on above: Refill Request Start: 04-21-2023 Refill Denise Alvarado DISPATCH SUPERVISOR.FELLING MACHINE OPERATOR Work Phone: Internal Medicine [place] Comment on above: Refill Request Start: 04-19-2023 Refill Denise Alvarado DISPATCH SUPERVISOR.FELLING MACHINE OPERATOR Work Phone: Internal Medicine [place] Comment on above: Refill Request Start: 04-19-2023 Refill Jerrica Duenas DISPATCH SUPERVISOR.MANAGER APPOINTMENT Work Phone: Endocrinology Comment on above: Refill Request Start: 04-14-2023 End: 04-14-2023 ambulatory Pulm Lab [facility] Work Phone: PULM LAB [facility] Comment on above: Spirometry Start: 04-14-2023 End: 04-14-2023 Patient encounter procedure Pulm Lab [facility] Work Phone: [facility] Start: 04-09-2023 End: 04-09-2023 Emergency department patient visit [facility] Work Phone: Start: 03-31-2023 Refill Cole Bower DISPATCH SUPERVISOR.MANAGER APPOINTMENT Work Phone: Internal Medicine [place] Comment on [...] of medication Start: 03-24-2023 Refill Denise Alvarado DISPATCH SUPERVISOR.FELLING MACHINE OPERATOR Work Phone: Internal [facility] [place] Comment on above: Refill Request Start: 03-21-2023 Refill Cole Cheli DISPATCH SUPERVISOR.MANAGER APPOINTMENT Work Phone: Internal Medicine [place] Comment on above: Refill Request Start: 03-09-2023 Refill Denise Alvarado DISPATCH SUPERVISOR.FELLING MACHINE OPERATOR Work Phone: Internal Medicine [place] Comment on above: Refill Request Start: 03-04-2023 Refill Cole Cheli DISPATCH SUPERVISOR.[facility] Work Phone: Internal Medicine [place] Comment on above: Refill Request Start: 02-16-2023 Refill Cole Cheli DISPATCH SUPERVISOR.[facility] Work Phone: Internal [facility] [place] Comment on above: Refill Request Start: 02-15-2023 Refill Cole Cheli DISPATCH SUPERVISOR.[facility] Work Phone: Internal [facility] [place] Comment on above: Refill Request Start: 02-13-2023 Refill Denise Alvarado DISPATCH SUPERVISOR.FELLING MACHINE OPERATOR Work Phone: Internal Medicine [place] Comment on above: Refill Request Start: 02-07-2023 Refill Cole Cheli DISPATCH SUPERVISOR.[facility] Work Phone: Internal [facility] [place] Comment on above: Refill Request Start: 01-27-2023 Refill Cole Cheli DISPATCH SUPERVISOR.[facility] Work Phone: Internal [facility] [place] Comment on above: Refill Request Start: 01-25-2023 End: 01-25-2023 Patient encounter procedure Ramesh Brewster MD Work Phone: Cardiology Comment on above: Screening for ischem ic heart disease (Primary Dx); Pericardial effusion; Essential hypertension; Mixed hyperlipidemia; Post-COVID chronic dyspnea; Obesity, Class II, BMI 35-39.9 Start: 01-21-2023 Telephone encounter Cole Nolan er DISPATCH SUPERVISOR.MANAGER APPOINTMENT Work Phone: Internal [facility] [place] Comment on above: Patient Question Start: 01-19-2023 Telephone encounter Sarina costa MD Work Phone: Internal Medicine [place] Comment on above: Insurance Authorizat ion Start: 01-15-2023 End: 01-15-2023 Patient encounter procedure Cole Barajasr DISPATCH SUPERVISOR.MANAGER APPOINTMENT Work Phone: Internal Medicine [place] Comment on above: Pericardial effusion (noninflammatory) (Primary Dx); Chronic hypoxemic respiratory failure (HCC); Chronic midline low back pain, unspecified whether sciatica present; 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) Start: 01-15-2023 Telephone encounter Cole Nolan er DISPATCH SUPERVISOR.MANAGER APPOINTMENT Work Phone: Internal [facility] [place] Comment on above: Results; Care Coordi nator - Other Start: 01-06-2023 Telephone encounter Cole Nolan er DISPATCH SUPERVISOR.MANAGER APPOINTMENT Work Phone: Internal Medicine [place] Comment on above: Patient Update Start: 01-05-2023 End: 01-05-2023 Emergency department patient visit [facility] Work Phone: Start: 12-25-2022 Refill Sarina garcia MD Work Phone: Internal [facility] Comment on above: Refill Request Start: 12-18-2022 End: 12-18-2022 Refill Sarina Adams MD Work Phone: [facility] Comment on above: Refill Request [...] 12-14-2022 End: 12-14-2022 Patient encounter procedure Ericka Zamroa OD Work Phone: Ophthalmology Comment on above: Severe nonproliferat eleno diabetic retinopathy of both eyes with macular edema associated with type 2 diabetes mellitus (HCC) (Primary Dx); Pseudophakia of both eyes; Ptosis of right eyelid; Myasthenia gravis (HCC); Dry eye syndrome of bilateral lacrimal glands Start: 12-02-2022 ambulatory Sarina garcia MD Work Phone: [facility] [place] Start: 11-10-2022 Refill Sarina garcia MD Work [...] End: 10-21-2022 Patient encounter procedure Jerrica Duenas APRN.MANAGER APPOINTMENT Work Phone: Endocrinology Comment on above: Poorly controlled ty pe 2 diabetes mellitus (HCC) (Primary Dx); Hypothyroidism (acquired) Start: 10-21-2022 Telephone encounter Sarina costa MD Work Phone: Internal Medicine [place] Comment on above: Trulicity problem (S hortage at pharmacies) Appointment Start: 10-19-2022 ambulatory Rosana Navarro MD Work Phone: Pulmonary Medicine Comment on above: Nocturnal oximetry Start: 10-13-2022 Telephone encounter Monty Douglas MD Work Phone: Family Practice Comment on above: Appointment Start: 09-29-2022 Telephone encounter Sarina costa MD Work Phone: Family [facility] Comment on above: Medication Problem; Patient [...] Refill Request Start: 09-11-2022 Refill Cole Bower APRN.MANAGER APPOINTMENT Work Phone: Internal Medicine [place] Comment on above: Refill Request Start: 08-28-2022 End: 08-28-2022 Patient encounter procedure Monty Douglas MD Work Phone: Neurology Comment on above: Myasthenia gravis (H CC) (Primary Dx) Start: 08-24-2022 Telephone encounter Denise martins APRN.FELLING MACHINE OPERATOR Work Phone: Internal Medicine [place] Comment on above: Medication Problem Start: 08-14-2022 Refill Sarina garcia MD Work Phone: Internal Medicine [place] Comment on above: Refill Request Start: 08-13-2022 Refill Denise Alvarado APRNMaryannFELLING MACHINE OPERATOR Work Phone: Internal Medicine [place] Comment on above: Refill Request Start: 08-10-2022 Evaluation and manag ement of inpatient Dr. Sarina Adams Work Phone: [facility]-Medical Surgical 3 Start: 08-10-2022 Non-patient / Non-visit Dr. Florecita Adams Work Phone: [facility] Start: 08-03-2022 Refill Sarina garcia MD Work Phone: Internal Medicine [place] Comment on above: Refill Request Start: 07-21-2022 End: 07-21-2022 Patient encounter procedure Rosana Navarro MD Work Phone: Pulmonary Medicine Comment on above: Post-COVID chronic d yspnea (Primary Dx); Chronic hypoxemic respiratory failure (HCC) Start: 07-17-2022 End: 07-17-2022 Subsequent hospital visit by physician [facility] ([facility]) Work Phone: Cat Scan Comment on above: Malignant neoplasm o f thymus (HCC) [C37] Start: 07-10-2022 Refill Sarina garcia MD Work Phone: Internal Medicine [place] Comment on above: Refill Request Start: 07-03-2022 End: 07-03-2022 Patient encounter procedure Monty Douglas MD Work Phone: Neurology Comment on above: Malignant neoplasm o f thymus (HCC) (Primary Dx); Myasthenia gravis (HCC) Start: 06-26-2022 End: 06-26-2022 Office outpatient visit 15 minutes Sarina Adams MD Work Phone: Internal Medicine [place] Comment on above: Myasthenia gravis (H CC) [...] right eyelid Start: 06-14-2022 Refill Gavi TAPIA RN.MANAGER APPOINTMENT Work Phone: OB/Gynecology Comment on above: Refill Request Start: 06-09-2022 Refill Sarina garcia MD Work Phone: [facility] [place] Comment on above: Refill Request Start: 06-02-2022 End: 06-02-2022 Patient encounter procedure Radha Warner MD Work Phone: [facility] Comment on above: 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); Dermatochalasis of both upper eyelids; Hypothyroidism (acquired); Myasthenia gravis (HCC) Start: 05-12-2022 Refill Sarina garcia MD Work Phone: [facility] [place] Comment on above: Refill Request Start: 04-30-2022 Refill Sarina garcia MD Work Phone: [facility] Comment on above: Refill Request [...] Thrombocytopenia (HCC) Start: 03-27-2022 Refill Lucero Wiley APRN.MANAGER APPOINTMENT Work Phone: [facility] [place] Comment on above: Refill Request Start: 03-24-2022 Refill Sarina garcia MD Work Phone: [facility] [place] Comment on above: Prescription Refills Start: 03-11-2022 Refill Denise Alvarado DISPATCH SUPERVISOR.FELLING MACHINE OPERATOR Work Phone: Internal [facility] [place] Comment on above: Refill Request Start: 02-25-2022 End: 02-25-2022 Patient encounter procedure Michaeljaved Haro DISPATCH SUPERVISOR.MANAGER APPOINTMENT Work Phone: [facility] Comment on above: Laceration of fifth toe of left foot, initial encounter (Primary Dx) Start: 02-09-2022 Telephone encounter Sarina costa MD Work Phone: [facility] [place] Comment on above: Lab Orders Start: 02-06-2022 [...] Sarina costa MD Work Phone: [facility] [place] Comment on above: Insurance Authorizat ion Start: [...] with macular edema (HCC) Start: 12-30-2021 Refill Sraina garcia MD Work Phone: [facility] [place] Comment on above: Refill Request Start: 12-27-2021 Refill Denise Alvarado APRN.FELLING MACHINE OPERATOR Work Phone: [facility] [place] Comment on above: Refill Request Start: 12-25-2021 End: 12-25-2021 Patient encounter procedure Ericka Zamora OD Work Phone: Ophthalmology Comment on above: Type 2 diabetes evy itus with both eyes affected by moderate nonproliferative retinopathy without macular edema, with long-term current use of insulin (HCC) (Primary Dx); Pseudophakia of both eyes Start: 12-24-2021 ambulatory Sarina garcia MD Work Phone: Internal Medicine [facility] Start: 11-14-2021 Refill Sarina garcia MD Work Phone: [facility] [place] Comment on above: Refill Request; Refi ll Request Start: 02-06-2015 Ophthalmic examinati on and evaluation Ericka Zamora OD Work Phone: [facility] Work Phone: Start: 04-04-2014 End: 05-16-2024 Patient encounter status Ericka Zamora OD Work Phone: [facility] Work Phone: Procedures Date Procedure Procedure Detail Performing Clinician Start: 07-12-[address] Sarina Adams MD Work Phone: Start: 07-09-2025 Radiologic exam ches t [address] Sarina Adams MD Work Phone: Start: 07-09-[address] Sarina Adams MD Work Phone: Start: 03-28-2025 Adult depression scr eening assessment Cole Bower DISPATCH SUPERVISOR.MANAGER APPOINTMENT Work Phone: Start: 12-25-2024 Co diffusing capacity Myles Be PA-C Work Phone: Start: 05-16-2024 Noninvasive ear/puls e oximetry multiple chad Manning [place] [employer] Work Phone: Start: 02-11-2024 Urnls dip stick/tabl et rgnt auto w/o microscopy Cole Bower DISPATCH SUPERVISOR.MANAGER APPOINTMENT Work Phone: Start: 12-10-2023 Noninvasive ear/puls e oximetry multiple chad Manning [place] [facility] Work Phone: Start: 10-28-2023 Radex spine lumbosac ral 2/3 views Denise Alvarado DISPATCH SUPERVISOR.FELLING MACHINE OPERATOR Work Phone: Start: 10-11-2023 Adult depression scr eening assessment Sarina Adams MD Work Phone: Start: 08-12-2023 Plain chest X-ray Start: 07-01-2023 Radex spine lumbosac ral minimum 4 views Jaida Soares MD Work Phone: Start: 05-24-2023 Radex forearm 2 views T erri Alvarado DISPATCH SUPERVISOR.FELLING MACHINE OPERATOR Work Phone: Start: 05-19-2023 Radiologic exam ches t 2 views Brooke Manning [place] [facility] Work Phone: Start: 04-09-2023 Plain chest X-ray Start: 04-09-2023 SARS-CoV-2 & FLU Ant igen (Rapid) Start: 01-05-2023 Plain chest X-ray Start: 12-14-2022 Computerized ophthal garth imaging retina Ericka Zamora OD Work Phone: Start: 10-21-2022 Hemoglobin A1c/Hemoglobin.total in Blood Jerrica C Cioce DISPATCH SUPERVISOR.MANAGER APPOINTMENT Work Phone: Start: 09-29-2022 Urnls dip stick/tabl [...] uni/ bi w/interp intermed exam Belén Jacques DISPATCH SUPERVISOR.MANAGER APPOINTMENT Work Phone: Start: 12-25-2021 Computerized ophthal garth imaging retina Ericka Alecia Noah OD Work Phone: Start: 04-25-2021 Adult depression scr eening assessment Ericka Zamora OD Work Phone: Start: 03-22-2014 Mammography Ericka dubon OD Work Phone: Plan of Treatment Date Care Activity Detail Author Start: 05-29-2026 Annual PCP Team Chronic Disease Visit Annual PCP Team Chronic Disease Visit [facility] Start: 05-29-2026 Pneumococcal Vaccine: 50+ (2 of 2 - PCV) Pneumococcal Vaccine: 50+ (2 of 2 - PCV) [facility] Comment on above: Postponed from 04/19/2015 (Declined at t his time) Start: 05-29-2026 Shingrix Vaccine (1 of 2) Shingrix Vaccine (1 of 2) [facility] Comment on above: Postponed from 2015 (Declined at t his time) Start: 05-29-2026 Urine microalbumin profile DTaP,Tdap,Td Vaccine (2 - Td or Tdap) [facility] Comment on above: Postponed from 06/26/2025 (Declined at t his time) Start: 05-22-2026 Annual PCP Team Chronic Disease Visit Annual PCP Team Chronic Disease Visit [facility] Start: 03-28-2026 Annual PCP Team Chronic Disease Visit Annual PCP Team Chronic Disease Visit [facility] Start: 03-28-2026 Anxiety Screening Anxiety Screening [facility] Start: 03-28-2026 Depression Screening Depression Screening [facility] Start: 01-08-2026 End: 01-08-2026 Patient encounter procedure 01/08/2026 3:20 PM EDT Office Visit [facility] [place] [address] [place] [address] Denise Alvarado APRN.FELLING MACHINE OPERATOR [address] [place] [address] 3 month f/u [facility] [place] Comment on above: 3 month f/u Start: 12-08-2025 BP Controlled (<130/80) BP Controlled (<130/80) [facility] Start: 12-06-2025 BP Controlled (<130/80) BP Controlled (<130/80) [facility] Start: 12-06-2025 Hepatitis B surface antibody level LDL Cholesterol [facility] Start: 11-28-2025 Annual PCP Team Chronic Disease Visit Annual PCP Team Chronic Disease Visit [facility] Start: 11-28-2025 BP Controlled (<130/80) BP Controlled (<130/80) [facility] Start: 10-16-2025 Hepatitis B screening Urine Albumin:Creatinine Ratio [facility] Start: 10-09-2025 End: 10-09-2025 Patient encounter procedure 10/09/2025 2:40 PM EST Office Visit [facility] [place] [address] [place] [address] Sarina Adams MD [address] [place] [address] 3 month f/u [facility] [place] Comment on above: 3 month f/u Start: 08-29-2025 End: 11-28-2025 TSH W/REFLEX FT4 TSH W/REFLEX FT4 Lab Routine Weight gain Acquired hypothyroidism Expected: 08/29/2025 (Approximate), Expires: 11/28/2025 [facility] Comment on above: Expected: 08/29/2025 (Approximate), Expi res: 11/28/2025 Start: 07-12-2025 Patient discharge [facility] Start: 07-11-2025 Oxygen therapy [facility] Start: 07-10-2025 [facility] Start: 07-09-2025 Following clinical pathway protocol [facility] Start: 07-09-2025 Assessment of risk of venous thromboembolism [facility] Start: 07-09-2025 Care regimes management [facility] Start: 07-09-2025 Elevation of affected extremity [facility] Start: 07-09-2025 Insertion of catheter into peripheral vein [facility] Start: 07-09-2025 Measuring intake and output [facility] Start: 07-09-2025 Notification of physician [facility] Start: 07-09-2025 Patient education [facility] Start: 07-09-2025 Patient referral to dietitian [facility] Start: 07-09-2025 Providing care according to standard [facility] Start: 07-09-2025 Provision of activity privileges [facility] Start: 07-09-2025 Referral for physical therapy [facility] Start: 07-09-2025 Referral to occupational therapist [facility] Start: 07-09-2025 Referral to service [facility] Start: 07-09-2025 End: 07-09-2025 [facility] Start: 07-09-2025 Verification routine [facility] Start: 07-09-2025 Admission procedure [facility] Start: 07-09-2025 Hospital admission, emergency, from emergency room, medical nature [facility] Start: 07-09-2025 [facility] Start: 07-09-2025 End: 07-09-2025 Patient encounter procedure 07/09/2025 3:20 PM EDT Office Visit Cardiology [address] [place] [address] Ramesh Brewster MD [address] [facility] [address] [place] [address] 6 MONTH FOLLOW UP Cardiology Comment on above: 6 MONTH FOLLOW UP Start: 07-09-2025 End: 07-09-2025 Patient encounter procedure Cat Scan Comment on above: annual ldct annual ldct pending sale to [facility] 07/09 @ 140 Start: 07-09-2025 Consultation [facility] Start: 07-09-2025 Patient referral to dietitian [facility] Start: 07-03-2025 End: 07-03-2025 Patient encounter procedure 07/03/2025 3:20 PM EDT Office Visit Internal Medicine [address] [address] Denise Alvarado APRN.FELLING MACHINE OPERATOR [address] [place] [address] follow up [facility] [place] Comment on above: follow up Start: 06-28-2025 End: 06-28-2025 Patient encounter procedure [facility] [place] Comment on above: 3 month follow up 3 month follow up / due for colonoscopy Start: 06-28-2025 Hemoglobin A1c measurement HbA1C [facility] Start: 06-26-2025 Urine microalbumin profile [facility] Start: 06-14-2025 Annual PCP Team Chronic Disease Visit Annual PCP Team Chronic Disease Visit [facility] Start: 06-14-2025 BP Controlled (<130/80) BP Controlled (<130/80) [facility] Start: 06-08-2025 BP Controlled (<130/80) BP Controlled (<130/80) [facility] Start: 06-04-2025 Influenza vaccination [facility] Start: 05-29-2025 End: 05-29-2025 Patient encounter procedure 05/29/2025 3:00 PM EDT Office Visit Internal Medicine [place] [address] [facility] [place] [address] Denise Alvarado APRN.FELLING MACHINE OPERATOR [address] [place] [address] follow up [facility] [place] Comment on above: follow up Start: 05-29-2025 End: 08-28-2025 Basic metabolic 2000 panel - Serum or Plasma [facility] Work Phone: Comment on above: Expected: 05/29/2025, Expires: Start: 05-29-2025 End: 08-28-2025 CBC W Auto Differential panel - Blood [facility] Comment on above: Expected: 05/29/2025, Expires: Start: 05-22-2025 End: 05-22-2025 Patient encounter procedure 05/22/2025 3:00 PM EDT Office Visit Internal Medicine [place] [address] [place] [address] Denise Alvarado APRN.FELLING MACHINE OPERATOR [address] [place] [address] 3 month follow up / due for colonoscopy [facility] [place] Comment on above: 3 month follow up / due for colonoscopy Start: 05-16-2025 Annual PCP Team Chronic Disease Visit Annual PCP Team Chronic Disease Visit [facility] Start: 05-16-2025 Hepatitis B surface antibody level LDL Cholesterol [facility] Start: 03-28-2025 End: 03-28-2025 Patient encounter procedure 03/28/2025 3:00 PM EDT Office Visit Internal Medicine [place] [address] [place] [address] Cole Bower, DISPATCH SUPERVISOR.MANAGER APPOINTMENT [address] [place] [address] rescheduled from 03/05 [facility] [place] Comment on above: rescheduled from 03/05 Start: 03-28-2025 End: 06-27-2025 Comprehensive metabolic 2000 panel - Serum or Plasma [facility] Work Phone: Comment on above: Expected: 03/28/2025, Expires: Start: 03-28-2025 End: 06-27-2025 Hemoglobin A1c in Blood [facility] Comment on above: Expected: 03/28/2025, Expires: Start: 03-28-2025 End: 06-27-2025 Thyrotropin [Units/volume] in Serum or Plasma [facility] Comment on above: Expected: 03/28/2025, Expires: Start: 03-28-2025 End: 06-27-2025 Thyroxine (T4) free [Mass/volume] in Serum or Plasma [facility] Comment on above: Expected: 03/28/2025, Expires: Start: 03-28-2025 End: 06-27-2025 Triiodothyronine (T3) Free [Mass/volume] in Serum or Plasma [facility] Comment on above: Expected: 03/28/2025, Expires: Start: 03-07-2025 BP Controlled (<130/80) BP Controlled (<130/80) [facility] Start: 03-05-2025 End: 03-05-2025 Patient encounter procedure 03/05/2025 3:00 PM EDT Office Visit Internal Medicine [place] [address] [place] [address] Denise Alvarado, DISPATCH SUPERVISOR.FELLING MACHINE OPERATOR [address] [place] [address] 6 week f/u/ 9wk pt r/s [facility] [place] Comment on above: 6 week f/u/ 9wk pt r/s Start: 02-20-2025 BP Controlled (<130/80) BP Controlled (<130/80) [facility] Start: 02-12-2025 End: 02-12-2025 Patient encounter procedure 02/12/2025 2:40 PM EDT Office Visit [facility] [place] [address] [place] [address] Denise Alvarado, DISPATCH SUPERVISOR.FELLING MACHINE OPERATOR [address] [place] [address] 6 week f/u/ 9wk pt r/s [facility] [place] Comment on above: 6 week f/u/ 9wk pt r/s Start: 02-10-2025 Annual PCP Team Chronic Disease Visit Annual PCP Team Chronic Disease Visit [facility] Start: 02-10-2025 BP Controlled (<130/80) BP Controlled (<130/80) [facility] Start: 02-01-2025 Screening for malignant neoplasm of lung Lung Cancer Screening [facility] Start: 01-19-2025 End: 01-19-2025 Patient encounter procedure 01/19/2025 1:40 PM EDT Office Visit Internal Medicine [place] [address] [place] [address] Denise Alvarado, DISPATCH SUPERVISOR.FELLING MACHINE OPERATOR [address] [place] [address] 6 week f/u [facility] [place] Comment on above: 6 week f/u Start: 01-15-2025 End: 01-15-2025 Patient encounter procedure 01/15/2025 3:00 PM EDT Office Visit Internal Medicine [place] [address] [facility] [place] [address] Denise Alvarado, ODILON.FELLING MACHINE OPERATOR [address] [place] [address] left toenail - red/bloody [facility] [place] Comment on above: left toenail - red/bloody Start: 01-14-2025 Hemoglobin A1c measurement HbA1C [facility] Start: 01-12-2025 End: 11-30-2025 TSH W/REFLEX FT4 TSH W/REFLEX FT4 Lab Routine Acquired hypothyroidism Expected: 01/12/2025 (Approximate), Expires: 11/30/2025 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]; Former smoker [Z87.891] Start: 12-09-2024 Annual PCP Team Chronic Disease Visit Annual PCP Team Chronic Disease Visit [facility] Start: 12-08-2024 End: 12-08-2024 Patient encounter procedure 12/08/2024 2:00 PM EST Office Visit Internal Medicine [place] [address] [place] [address] Denise Alvarado, ODILON.FELLING MACHINE OPERATOR [address] [place] [address] 1 wk follow up [facility] [place] Comment on above: 1 wk follow up Start: 12-06-2024 End: 12-06-2024 Patient encounter procedure 12/06/2024 2:00 PM EST Office Visit Pulmonary Medicine [address] [place] [address] Brooke Be, PAJenniferC [address] [place] [address] follow up shortness of breath Pulmonary Medicine Comment on above: follow up shortness of breath Start: 12-01-2024 BP Controlled (<130/80) BP Controlled (<130/80) [facility] Start: 11-28-2024 End: 11-28-2024 Patient encounter procedure 11/28/2024 3:40 PM EST Office Visit Internal Medicine [place] [address] [facility] [place] [address] Sally Villa MD [address] [facility] [place] [address] [facility] Follow up/Patient cannot remember the date/swollen lower extremeties [facility] [place] Comment on above: [facility] Follow up/Patient cannot remember the date/swollen lower extremeties Start: 11-28-2024 End: 02-27-2025 CBC W Auto Differential panel - Blood COMPLETE BLOOD COUNT AND DIFFERENTIAL Lab Routine Pedal edema Expected: 11/28/2024, Expires: 02/27/2025 [facility] Comment on above: Expected: 11/28/2024, Expires: Start: 11-28-2024 End: 02-27-2025 Comprehensive metabolic 2000 panel - Serum or Plasma COMPREHENSIVE METABOLIC PANEL Lab Routine Pedal edema Expected: 11/28/2024, Expires: 02/27/2025 [facility] Comment on above: Expected: 11/28/2024, Expires: Start: 11-28-2024 End: 02-27-2025 Lipid 1996 panel - Serum or Plasma LIPID PANEL BASIC Lab Routine Localized swelling of left lower extremity Expected: 11/28/2024, Expires: 02/27/2025 [facility] Comment on above: Expected: 11/28/2024, Expires: Start: 11-28-2024 End: 02-27-2025 Natriuretic peptide.B prohormone N-Terminal [Mass/volume] in Serum or Plasma NT PRO BNP Lab Routine Hyponatremia Expected: 11/28/2024, Expires: 02/27/2025 [facility] Work Phone: Comment on above: Expected: 11/28/2024, Expires: Start: 11-28-2024 End: 02-27-2025 Thyrotropin [Units/volume] in Serum or Plasma THYROID STIMULATING HORMONE Lab Routine Weight gain Fatigue, unspecified type Expected: 11/28/2024, Expires: 02/27/2025 [facility] Comment on above: Expected: 11/28/2024, Expires: Start: 11-28-2024 End: 02-27-2025 Urinalysis complete panel - Urine URINALYSIS, WITH MICROSCOPIC Lab Routine UTI symptoms Expected: 11/28/2024, Expires: 02/27/2025 [facility] Comment on above: Expected: 11/28/2024, Expires: Start: 10-28-2024 BP Controlled (<130/80) BP Controlled (<130/80) [facility] Start: 10-27-2024 End: 10-27-2024 Patient encounter procedure 10/27/2024 2:45 PM EST Office Visit Pulmonary Medicine [address] [place] [id number] Rosana Navarro MD [address] [place] [address] 6MO OV Pulmonary Medicine Comment on above: 6MO OV Start: 10-27-2024 End: 10-27-2024 Patient encounter procedure 10/27/2024 1:20 PM EST Office Visit Internal Medicine [place] [address] [place], [place] [id number] Denise Alvarado APRN.FELLING MACHINE OPERATOR [address] [place], [place] [id number] swelling is persisting [facility] [place] Comment on above: swelling is persisting Start: 10-16-2024 End: 01-15-2025 Natriuretic peptide.B prohormone N-Terminal [Mass/volume] in Serum or Plasma [facility] Work Phone: Comment on above: Expected: 10/16/2024, Expires: Start: 10-16-2024 End: 10-16-2024 Patient encounter procedure Cardiology Comment on above: 6 month follow up Start: 10-13-2024 HPV TESTING HPV TESTING [facility] Start: 10-13-2024 PAP TESTING PAP TESTING [facility] Start: 10-13-2024 Screening for malignant neoplasm of cervix [facility] Start: 10-11-2024 Annual PCP Team Chronic Disease Visit Annual PCP Team Chronic Disease Visit [facility] Start: 10-11-2024 Anxiety Screening Anxiety Screening [facility] Start: 10-11-2024 Depression Screening Depression Screening [facility] Start: 10-11-2024 Hepatitis B screening Urine Albumin:Creatinine Ratio [facility] Start: 09-28-2024 End: 09-28-2024 Patient encounter procedure 09/28/2024 2:15 PM EST Office Visit Pulmonary Medicine [address] [place] [address] Rosana Navarro MD [address] [place] [address] 6MO OV Pulmonary Medicine Comment on above: 6MO OV Start: 09-19-2024 End: 09-19-2024 Patient encounter procedure 09/19/2024 1:40 PM EST Office Visit Internal Medicine [place] [address] [place] [address] Denise Alvarado APRN.FELLING MACHINE OPERATOR [address] [place] [address] 3 month f/u [facility] [place] Comment on above: 3 month f/u Start: 2024 Hemoglobin A1c measurement HbA1C [facility] Start: 09-01-2024 End: 06-08-2025 Comprehensive metabolic 2000 panel - Serum or Plasma COMPREHENSIVE METABOLIC PANEL Lab Routine JOSIE (acute kidney injury) (HCC) Type 2 diabetes mellitus with diabetic neuropathy, with long-term current use of insulin (HCC) Expected: 09/01/2024 (Approximate), Expires: 06/08/2025 [facility] Work Phone: Comment on above: Expected: 09/01/2024 (Approximate), Expi res: 06/08/2025 Start: 09-01-2024 End: 06-08-2025 Hemoglobin A1c in Blood HEMOGLOBIN A1C Lab Routine JOSIE (acute kidney injury) (HCC) Type 2 diabetes mellitus with diabetic neuropathy, with long-term current use of insulin (HCC) Expected: 09/01/2024 (Approximate), Expires: 06/08/2025 [facility] Comment on above: Expected: 09/01/2024 (Approximate), Expi res: 06/08/2025 Start: 09-01-2024 End: 06-08-2025 Microalbumin/Creatinine [Mass Ratio] in Urine ALBUMIN/CREATININE RATIO, URINE Lab Routine JOSIE (acute kidney injury) (HCC) Type 2 diabetes mellitus with diabetic neuropathy, with long-term current use of insulin (HCC) Expected: 09/01/2024 (Approximate), Expires: 06/08/2025 [facility] Comment on above: Expected: 09/01/2024 (Approximate), Expi res: 06/08/2025 Start: 08-16-2024 Hemoglobin A1c measurement HbA1C [facility] Start: 08-14-2024 End: 08-14-2024 Patient encounter procedure 08/14/2024 1:00 PM EST Office Visit Orthopaedics [address] [place] [address] Ana M Daley PA-C [address] [place] [address] Injury of left rotator cuff, subsequent encounter [S46.002D] Orthopaedics Comment on above: Injury of left rotator cuff, subsequent encounter [S46.002D] Start: 08-12-2024 Glaucoma screening Dilated Retinal Exam [facility] Start: 08-12-2024 Hepatitis C antibody, confirmatory test Dilated Retinal Exam [facility] Start: 08-05-2024 Hepatitis C antibody, confirmatory test Dilated Retinal Exam [facility] Start: 07-22-2024 BP Controlled (<130/80) BP Controlled (<130/80) [facility] Start: 07-22-2024 Colorectal Cancer Screening Colorectal Cancer Screening [facility] Comment on above: Postponed from 2010 (Declined at t his time) Start: 07-22-2024 Influenza vaccination Lung Cancer Screening [facility] Comment on above: Postponed from 07/17/2023 (Declined at t his time) Start: 07-22-2024 Screening for malignant neoplasm of colon Colorectal Cancer Screening [facility] Comment on above: Postponed from 2010 (Declined at t his time) Start: 07-22-2024 Screening for malignant neoplasm of lung Lung Cancer Screening [facility] Comment on above: Postponed from 07/17/2023 (Declined at t his time) Start: 07-17-2024 End: 07-17-2024 Patient encounter procedure 07/17/2024 11:00 AM EDT [facility] [address] [phone] [facility] [address] [place], [place] [id number] DM f/up [facility] Comment on above: DM f/up Start: 07-10-2024 End: 07-10-2024 Patient encounter procedure 07/10/2024 10:00 AM EDT [facility] [address] [phone] [facility] [address] [place] [address] DM f/up [facility] Comment on above: DM f/up Start: 07-07-2024 End: 07-07-2024 Patient encounter procedure 07/07/2024 10:30 AM EDT [facility] [address] [phone] [facility] [address] [place] [address] DM f/up [facility] Comment on above: DM f/up Start: 06-28-2024 Annual PCP Team Chronic Disease Visit Annual PCP Team Chronic Disease Visit [facility] Start: 06-28-2024 BP Controlled (<130/80) BP Controlled (<130/80) [facility] Start: 06-26-2024 End: 06-26-2024 Patient encounter procedure 06/26/2024 1:45 PM EDT Office Visit Orthopaedics [address] [place], [place] [address] Klaus Hernandez MD [address] [facility] [place], [place] [id number] Injury of left rotator cuff, subsequent encounter [S46.002D] Orthopaedics Comment on above: Injury of left rotator cuff, subsequent encounter [S46.002D] Start: 06-14-2024 End: 06-14-2024 Patient encounter procedure 06/14/2024 2:20 PM EDT Office Visit Internal Medicine [place] [address] [place] [address] Cole Bower APRN.MANAGER APPOINTMENT [address] [place] [address] 4 week follow up-labs and left shoulder [facility] [place] Comment on above: 4 week follow up-labs and left shoulder Start: 06-08-2024 End: 09-07-2024 Basic metabolic 2000 panel - Serum or Plasma BASIC METABOLIC PANEL Lab Routine JOSIE (acute kidney injury) (HCC) Expected: 06/08/2024, Expires: 09/07/2024 [facility] Work Phone: Comment on above: Expected: 06/08/2024, Expires: Start: 06-08-2024 End: 06-08-2024 Patient encounter procedure 06/08/2024 1:40 PM EDT Office Visit Internal Medicine [place] [address] [place], [place] [id number] Denise Alvarado APRN.FELLING MACHINE OPERATOR [address] [facility] [place] [address] evaluate leg swelling, patient c/o of continued weakness [facility] [place] Comment on above: evaluate leg swelling, patient c/o of co ntinued weakness Start: 06-06-2024 End: 06-06-2024 Patient encounter procedure 06/06/2024 1:50 PM EDT Office Visit Cardiology [address] [place] [address] Pericardial effusion [I31.39] Cardiology Comment on above: Pericardial effusion [I31.39] Start: 06-05-2024 End: 02-20-2025 Echocardiography ECHO Cardiology Routine Pericardial effusion Expected: 06/05/2024, Expires: 02/20/2025 [facility] Work Phone: Comment on above: Expected: 06/05/2024, Expires: Start: 06-04-2024 Influenza vaccination [facility] Start: 06-02-2024 End: 06-02-2024 Patient encounter procedure 06/02/2024 11:00 AM EDT [facility] [address] [id number] [facility] [address] [place] [address] DM f/up [facility] Comment on above: DM f/up Start: 05-24-2024 BP CONTROLLED (<130/80) BP CONTROLLED (<130/80) [facility] Start: 05-17-2024 BP CONTROLLED (<130/80) BP CONTROLLED (<130/80) [facility] Start: 05-16-2024 End: 05-16-2024 ambulatory 05/16/2024 2:45 PM EDT Procedure PULM LAB [facility] [address] [place] [address] [facility], Pulm Lab [facility] [address] [place] [address] Chronic hypoxemic respiratory failure (HCC) [J96.11] PULM LAB [facility] Comment on above: Chronic hypoxemic respiratory failure (H CC) [J96.11] Start: 05-16-2024 End: 08-15-2024 25-hydroxyvitamin D3 [Mass/volume] in Serum or Plasma [facility] Comment on above: Expected: 05/16/2024, Expires: Start: 05-16-2024 End: 08-15-2024 Bacteria identified in Urine by Culture [facility] Comment on above: Expected: 05/16/2024, Expires: 4 Start: 05-16-2024 End: 08-15-2024 Comprehensive metabolic 2000 panel - Serum or Plasma [facility] Work Phone: Comment on above: Expected: 05/16/2024, Expires: Start: 05-16-2024 End: 08-15-2024 Hemoglobin A1c in Blood [facility] Comment on above: Expected: 05/16/2024, Expires: 4 Start: 05-16-2024 End: 08-15-2024 LIPID PANEL, NONFASTING [facility] Comment on above: Expected: 05/16/2024, Expires: Start: 05-16-2024 End: 08-15-2024 Thyrotropin [Units/volume] in Serum or Plasma [facility] Comment on above: Expected: 05/16/2024, Expires: Start: 05-16-2024 End: 08-15-2024 Thyroxine (T4) free [Mass/volume] in Serum or Plasma [facility] Comment on above: Expected: 05/16/2024, Expires: 4 Start: 05-16-2024 End: 08-15-2024 Triiodothyronine (T3) Free [Mass/volume] in Serum or Plasma [facility] Comment on above: Expected: 05/16/2024, Expires: Start: 05-16-2024 End: 08-15-2024 Urinalysis complete panel - Urine [facility] Comment on above: Expected: 05/16/2024, Expires: Start: 05-16-2024 End: 05-16-2024 Patient encounter procedure [facility] [place] Comment on above: 3 month follow 3 month follow/ meds refill/ Follow up after Fall Start: 05-12-2024 End: 05-12-2024 Patient encounter procedure 05/12/2024 2:20 PM EDT Office Visit Internal Medicine [place] [address] [place] [address] Sarina Adams MD [address] [place] [address] [facility] d/c 05/04/24, left should pain from a fall Internal Medicine [place] Comment on above: [facility] d/c 05/04/24, left should tsering n from a fall Start: 05-04-2024 End: 05-04-2024 ambulatory 05/04/2024 2:30 PM EDT Results Only [facility] [address] [place] [address] [facility] Start: 05-04-2024 Hemoglobin A1c measurement HbA1C [facility] Start: 04-29-2024 BP CONTROLLED (<130/80) BP CONTROLLED (<130/80) [facility] Start: 03-31-2024 End: 03-31-2024 Patient encounter procedure 03/31/2024 9:00 AM EDT [facility] [address] [phone] [facility] [address] [place] [address] DM f/up [facility] Comment on above: DM f/up Start: 03-26-2024 ANNUAL PCP TEAM CHRONIC DISEASE VISIT ANNUAL PCP TEAM CHRONIC DISEASE VISIT [facility] Start: 03-26-2024 BP CONTROLLED (<130/80) BP CONTROLLED (<130/80) [facility] Start: 03-26-2024 Hepatitis B screening URINE ALBUMIN:CREATININE RATIO [facility] Start: 03-26-2024 Hepatitis B surface antibody level LDL CHOLESTEROL [facility] Start: 03-16-2024 Hepatitis C antibody, confirmatory test DILATED RETINAL EXAM [facility] Start: 03-07-2024 End: 03-07-2024 Patient encounter procedure 03/07/2024 2:00 PM EDT Office Visit Pulmonary Medicine [address] [place] [address] Brooke Be PA-C [address] [place] [address] 3 month follow up Pulmonary Medicine Comment on above: 3 month follow up Start: 02-21-2024 End: 02-21-2024 Patient encounter procedure 02/21/2024 1:40 PM EDT Office Visit Cardiology [address] [place] [phone] Ramesh Brewster MD [address] [facility] [address] [place], [place] [id number] 4 month f/u Cardiology Comment on above: 4 month f/u Start: 02-11-2024 End: 02-11-2024 Patient encounter procedure 02/11/2024 2:00 PM EDT Office Visit Internal Medicine [place] [address] [facility] [place] [address] Cole Bower APRN.MANAGER APPOINTMENT [address] [facility] [address] 2 month follow up [facility] [place] Comment on above: 2 month follow up Start: 02-02-2024 End: 05-03-2024 25-hydroxyvitamin D3 [Mass/volume] in Serum or Plasma VITAMIN D 25 HYDROXY Lab Routine Vitamin D deficiency Expected: 02/02/2024, Expires: 05/03/2024 [facility] Work Phone: Comment on above: Expected: 02/02/2024, Expires: Start: 02-02-2024 End: 05-03-2024 CBC W Auto Differential panel - Blood CBC + DIFF Lab Routine Encounter for therapeutic drug monitoring Expected: 02/02/2024, Expires: 05/03/2024 [facility] Work Phone: Comment on above: Expected: 02/02/2024, Expires: 4 Start: 02-02-2024 End: 05-03-2024 Comprehensive metabolic 2000 panel - Serum or Plasma COMP METABOLIC PANEL Lab Routine Encounter for therapeutic drug monitoring Expected: 02/02/2024, Expires: 05/03/2024 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 Work Phone: Comment on above: Expected: 02/02/2024, Expires: Start: 01-26-2024 BP CONTROLLED (<130/80) BP CONTROLLED (<130/80) [facility] Start: 01-16-2024 ANNUAL PCP TEAM CHRONIC DISEASE VISIT ANNUAL PCP TEAM CHRONIC DISEASE VISIT [facility] Start: 01-16-2024 BP CONTROLLED (<130/80) BP CONTROLLED (<130/80) [facility] Start: 01-10-2024 Hemoglobin A1c measurement HbA1C [facility] Start: 12-19-2023 ANNUAL PCP TEAM CHRONIC DISEASE VISIT ANNUAL PCP TEAM CHRONIC DISEASE VISIT [facility] Start: 12-19-2023 BP CONTROLLED (<130/80) BP CONTROLLED (<130/80) [facility] Start: 12-19-2023 Hepatitis B screening URINE ALBUMIN:CREATININE RATIO [facility] Start: 12-19-2023 Hepatitis B surface antibody level LDL CHOLESTEROL [facility] Start: 12-15-2023 Hepatitis C antibody, confirmatory test DILATED RETINAL EXAM [facility] Start: 10-26-2023 BP CONTROLLED (<130/80) BP CONTROLLED (<130/80) [facility] Start: 10-04-2023 Behavioral Health Screening Behavioral Health Screening [facility] Start: 10-01-2023 End: 07-07-2024 Hemoglobin A1c in Blood HGB A1C Lab Routine 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) Expected: 10/01/2023 (Approximate), Expires: 07/07/2024 [facility] Work Phone: Comment on above: Expected: 10/01/2023 (Approximate), Expi res: 07/07/2024 Start: 09-29-2023 BP CONTROLLED (<130/80) BP CONTROLLED (<130/80) [facility] Start: 09-27-2023 Hemoglobin A1c measurement HbA1C [facility] Start: 09-27-2023 Hemoglobin A1c/Hemoglobin.total in Blood HbA1C [facility] Start: 09-18-2023 ANNUAL PCP TEAM CHRONIC DISEASE VISIT ANNUAL PCP TEAM CHRONIC DISEASE VISIT [facility] Start: 09-18-2023 BP CONTROLLED (<130/80) BP CONTROLLED (<130/80) [facility] Start: 09-14-2023 Hepatitis C antibody, confirmatory test DILATED RETINAL EXAM [facility] Start: 08-28-2023 BP CONTROLLED (<130/80) BP CONTROLLED (<130/80) [facility] Start: 08-24-2023 BP CONTROLLED (<130/80) BP CONTROLLED (<130/80) [facility] Start: 08-13-2023 [facility] Start: 08-13-2023 End: 10-13-2023 Thyrotropin [Units/volume] in Serum or Plasma TSH BLD Lab Routine Acquired hypothyroidism Expected: 08/13/2023 (Approximate), Expires: 10/13/2023 [facility] Work Phone: Comment on above: Expected: 08/13/2023 (Approximate), Expi res: 10/13/2023 Start: 08-12-2023 End: 08-12-2023 [facility] Start: 07-21-2023 BP CONTROLLED (<130/80) BP CONTROLLED (<130/80) [facility] Start: 07-17-2023 Influenza vaccination LUNG CANCER SCREENING [facility] Start: 07-03-2023 BP CONTROLLED (<130/80) BP CONTROLLED (<130/80) [facility] Start: 06-26-2023 End: 08-26-2023 25-hydroxyvitamin D3 [Mass/volume] in Serum or Plasma VITAMIN D 25 HYDROXY Lab Routine Vitamin D deficiency Expected: 06/26/2023 (Approximate), Expires: 08/26/2023 [facility] Work Phone: Comment on above: Expected: 06/26/2023 (Approximate), Expi res: 08/26/2023 Start: 06-26-2023 ANNUAL PCP TEAM CHRONIC DISEASE VISIT ANNUAL PCP TEAM CHRONIC DISEASE VISIT [facility] Start: 06-26-2023 COLORECTAL CANCER SCREENING COLORECTAL CANCER SCREENING [facility] Comment on above: Postponed from 2010 (Declined at t his time) Start: 06-26-2023 End: 08-26-2023 Hemoglobin A1c in Blood HGB A1C Lab Routine 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) Expected: 06/26/2023 (Approximate), Expires: 08/26/2023 [facility] Work Phone: Comment on above: Expected: 06/26/2023 (Approximate), Expi res: 08/26/2023 Start: 06-26-2023 Hemoglobin A1c/Hemoglobin.total in Blood HBA1C [facility] Start: 06-26-2023 HEPATITIS B (1 of 3 - 3-dose series) HEPATITIS B (1 of 3 - 3-dose series) [facility] Comment on above: Postponed from 1965 (Declined at t his time) Start: 06-26-2023 Hepatitis B Vaccine (1 of 3 - 3-dose series) Hepatitis B Vaccine (1 of 3 - 3-dose series) [facility] Comment on above: Postponed from 1965 (Declined at t his time) Start: 06-26-2023 PNEUMOCOCCAL (2 - PCV) PNEUMOCOCCAL (2 - PCV) [facility] Comment on above: Postponed from 04/19/2015 (Declined at t his time) Start: 06-26-2023 Pneumococcal vaccination Pneumococcal Vaccine (2 - PCV) [facility] Comment on above: Postponed from 04/19/2015 (Declined at t his time) Start: 06-26-2023 End: 08-26-2023 Thyrotropin [Units/volume] in Serum or Plasma TSH BLD Lab Routine Acquired hypothyroidism Expected: 06/26/2023 (Approximate), Expires: 08/26/2023 [facility] Work Phone: Comment on above: Expected: 06/26/2023 (Approximate), Expi res: 08/26/2023 Start: 06-25-2023 SHINGRIX VACCINE (1 of 2) SHINGRIX VACCINE (1 of 2) [facility] Comment on above: Postponed from 2015 (Insurance Cov erage) Start: 06-15-2023 Hepatitis C antibody, confirmatory test DILATED RETINAL EXAM [facility] Start: 06-10-2023 BP CONTROLLED (<130/80) BP CONTROLLED (<130/80) [facility] Start: 06-04-2023 Influenza vaccination [facility] Start: 05-24-2023 End: 05-17-2024 Echocardiography ECHO Cardiology Routine Pericardial effusion Weight gain Expected: 05/24/2023 (Approximate), Expires: 05/17/2024 [facility] Work Phone: Comment on above: Expected: 05/24/2023 (Approximate), Expi res: 05/17/2024 Start: 05-17-2023 End: 07-17-2023 Natriuretic peptide.B prohormone N-Terminal [Mass/volume] in Serum or Plasma [facility] Work Phone: Comment on above: Expected: 05/17/2023, Expires: Start: 04-02-2023 Influenza vaccination INFLUENZA (#1) [facility] Comment on above: Postponed from 06/04/2022 (Declined at t his time) Start: 04-01-2023 ANNUAL PCP TEAM CHRONIC DISEASE VISIT ANNUAL PCP TEAM CHRONIC DISEASE VISIT [facility] Start: 04-01-2023 BP CONTROLLED (<130/80) BP CONTROLLED (<130/80) [facility] Start: 03-20-2023 Hemoglobin A1c/Hemoglobin.total in Blood HBA1C [facility] Start: 03-16-2023 BP CONTROLLED (<130/80) BP CONTROLLED (<130/80) [facility] Start: 02-25-2023 BP CONTROLLED (<130/80) BP CONTROLLED (<130/80) [facility] Start: 01-30-2023 ANNUAL PCP TEAM CHRONIC DISEASE VISIT ANNUAL PCP TEAM CHRONIC DISEASE VISIT [facility] Start: 01-30-2023 BP CONTROLLED (<130/80) BP CONTROLLED (<130/80) [facility] Start: 01-19-2023 Hemoglobin A1c/Hemoglobin.total in Blood HBA1C [facility] Start: 01-15-2023 End: 03-17-2023 C reactive protein [Mass/volume] in Serum or Plasma [facility] Work Phone: Comment on above: Expected: 01/15/2023, Expires: 3 Start: 01-15-2023 End: 03-17-2023 Comprehensive metabolic 2000 panel - Serum or Plasma [facility] Work Phone: Comment on above: Expected: 01/15/2023, Expires: 3 Start: 01-15-2023 End: 03-17-2023 Thyrotropin [Units/volume] in Serum or Plasma [facility] Work Phone: Comment on above: Expected: 01/15/2023, Expires: 3 Start: 01-05-2023 [facility] Start: 12-25-2022 Hepatitis C antibody, confirmatory test DILATED RETINAL EXAM [facility] Start: 12-18-2022 End: 02-17-2023 Natriuretic peptide.B prohormone N-Terminal [Mass/volume] in Serum or Plasma [facility] Work Phone: Comment on above: Expected: 12/18/2022, Expires: 3 Start: 12-09-2022 BP CONTROLLED (<130/80) BP CONTROLLED (<130/80) [facility] Start: 10-07-2022 Hemoglobin A1c/Hemoglobin.total in Blood HBA1C [facility] Start: 10-04-2022 DEPRESSION ASSESSMENT DEPRESSION ASSESSMENT [facility] Start: 09-01-2022 End: 11-01-2022 CBC panel - Blood by Automated count CBC Lab Routine Thrombocytopenia (HCC) Expected: 09/01/2022 (Approximate), Expires: 11/01/2022 [facility] Work Phone: Comment on above: Expected: 09/01/2022 (Approximate), Expi res: 11/01/2022 Start: 08-10-2022 US urinary tract Kidney and Bladder [facility] Work Phone: Start: 08-10-2022 End: 08-10-2022 Blood culture [facility] Work Phone: Start: 08-10-2022 Radiography of esophagus Esophagus Dual Contrast [facility] Work Phone: Start: 08-10-2022 Ultrasonography of abdomen Abdomen Limited [facility] Work Phone: Start: 08-10-2022 Verification routine [facility] Work Phone: Start: 08-10-2022 Admission procedure [facility] Work Phone: Start: 08-10-2022 [facility] Work Phone: Start: 07-29-2022 ANNUAL PCP TEAM CHRONIC DISEASE VISIT ANNUAL PCP TEAM CHRONIC DISEASE VISIT [facility] Start: 07-02-2022 End: 09-01-2022 Hemoglobin A1c in Blood HGB A1C Lab Routine 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) Expected: 07/02/2022 (Approximate), Expires: 09/01/2022 [facility] Work Phone: Comment on above: Expected: 07/02/2022 (Approximate), Expi res: 09/01/2022 Start: 07-02-2022 End: 09-01-2022 Thyrotropin [Units/volume] in Serum or Plasma TSH BLD Lab Routine Acquired hypothyroidism Expected: 07/02/2022 (Approximate), Expires: 09/01/2022 [facility] Work Phone: Comment on above: Expected: 07/02/2022 (Approximate), Expi res: 09/01/2022 Start: 07-02-2022 End: 09-01-2022 Thyroxine (T4) free [Mass/volume] in Serum or Plasma T4 FREE/FREE THYROX Lab Routine Acquired hypothyroidism Expected: 07/02/2022 (Approximate), Expires: 09/01/2022 [facility] Work Phone: Comment on above: Expected: 07/02/2022 (Approximate), Expi res: 09/01/2022 Start: 07-02-2022 End: 09-01-2022 Triiodothyronine (T3) Free [Mass/volume] in Serum or Plasma T3 FREE BLD Lab Routine Acquired hypothyroidism Expected: 07/02/2022 (Approximate), Expires: 09/01/2022 [facility] Work Phone: Comment on above: Expected: 07/02/2022 (Approximate), Expi res: 09/01/2022 Start: 06-26-2022 Hemoglobin A1c/Hemoglobin.total in Blood HBA1C [facility] Start: 06-04-2022 Influenza vaccination [facility] Start: 04-25-2022 3 comp foot exam completed DIABETIC FOOT EXAM [facility] Start: 04-25-2022 Adult depression screening assessment DEPRESSION SCREENING [facility] Start: 04-25-2022 Diabetic foot examination Diabetic Foot Exam [facility] Start: 04-10-2022 Hepatitis B screening URINE ALBUMIN:CREATININE RATIO [facility] Start: 04-10-2022 Hepatitis B surface antibody level LDL CHOLESTEROL [facility] Start: 02-09-2022 End: 04-11-2022 ACETYLCHOLINE REC BINDING AB ACETYLCHOLINE REC BINDING AB Lab Routine Ptosis of eyelid, right Right eye sensitive to light Expected: 02/09/2022, Expires: 04/11/2022 [facility] Work Phone: Comment on above: Expected: 02/09/2022, Expires: 2 Start: 02-09-2022 End: 04-11-2022 LRP4 AUTOANTIBODY TEST LRP4 AUTOANTIBODY TEST Lab Routine Ptosis of eyelid, right Right eye sensitive to light Expected: 02/09/2022, Expires: 04/11/2022 [facility] Work Phone: Comment on above: Expected: 02/09/2022, Expires: 2 Start: 02-09-2022 End: 04-11-2022 MUSK ANTIBODY TEST MUSK ANTIBODY TEST Lab Routine Ptosis of eyelid, right Right eye sensitive to light Expected: 02/09/2022, Expires: 04/11/2022 [facility] Work Phone: Comment on above: Expected: 02/09/2022, Expires: 2 Start: 02-09-2022 End: 04-11-2022 Thyrotropin [Units/volume] in Serum or Plasma TSH BLD Lab Routine Ptosis of eyelid, right Right eye sensitive to light Expected: 02/09/2022, Expires: 04/11/2022 [facility] Work Phone: Comment on above: Expected: 02/09/2022, Expires: 2 Start: 02-09-2022 End: 04-11-2022 Thyroxine (T4) free [Mass/volume] in Serum or Plasma T4 FREE/FREE THYROX Lab Routine Ptosis of eyelid, right Right eye sensitive to light Expected: 02/09/2022, Expires: 04/11/2022 [facility] Work Phone: Comment on above: Expected: 02/09/2022, Expires: 2 Start: 02-09-2022 End: 04-11-2022 Triiodothyronine (T3) Free [Mass/volume] in Serum or Plasma T3 FREE BLD Lab Routine Ptosis of eyelid, right Right eye sensitive to light Expected: 02/09/2022, Expires: 04/11/2022 [facility] Work Phone: Comment on above: Expected: 02/09/2022, Expires: 2 Start: 01-23-2022 HIV SCREENING HIV SCREENING [facility] Comment on above: Postponed from 1983 (Declined at t his time) Start: 01-23-2022 SHINGRIX VACCINE (1 of 2) SHINGRIX VACCINE (1 of 2) [facility] Comment on above: Postponed from 2015 (Declined at t his time) Start: 10-04-2021 DEPRESSION ASSESSMENT DEPRESSION ASSESSMENT [facility] Start: 07-11-2021 Hemoglobin A1c/Hemoglobin.total in Blood HBA1C [facility] Start: 06-04-2021 Influenza vaccination INFLUENZA (#1) [facility] Start: 2020 Influenza vaccination LUNG CANCER SCREENING [facility] Start: 03-14-2020 BP CONTROLLED (<130/80) BP CONTROLLED (<130/80) [facility] Start: 2015 Influenza vaccination LUNG CANCER SCREENING [facility] Start: 2015 SHINGRIX VACCINE (1 of 2) SHINGRIX VACCINE (1 of 2) [facility] Start: 04-19-2015 PNEUMOCOCCAL (2 - PCV) PNEUMOCOCCAL (2 - PCV) [facility] Start: 04-19-2015 [facility] Start: 04-19-2015 Pneumococcal Vaccine: 50+ (2 of 2 - PCV) Pneumococcal Vaccine: 50+ (2 of 2 - PCV) [facility] Start: 03-22-2015 Mammography [facility] Start: 03-22-2015 Screening for malignant neoplasm of breast Mammogram Screening [facility] Start: 2010 COLOGUARD (FIT-DNA) [facility] Start: 2010 Colonoscopy COLONOSCOPY [facility] Start: 2010 COLORECTAL CANCER SCREENING COLORECTAL CANCER SCREENING [facility] Start: [address] COLONOGRAPHY [facility] Start: 2010 FECAL OCCULT BLOOD FECAL OCCULT BLOOD [facility] Start: 2010 Screening for malignant neoplasm of colon [facility] Start: 2010 SIGMOIDOSCOPY SIGMOIDOSCOPY [facility] Start: 1984 HEPATITIS B (1 of 3 - Risk 3-dose series) HEPATITIS B (1 of 3 - Risk 3-dose series) [facility] Start: 1984 Hepatitis B Vaccine (1 of 3 - 19+ 3-dose series) Hepatitis B Vaccine (1 of 3 - 19+ 3-dose series) [facility] Start: 1983 Anxiety Screening Anxiety Screening [facility] Start: 1983 Depression Screening Depression Screening [facility] Start: 1983 HIV SCREENING HIV SCREENING [facility] Start: 1965 HEPATITIS B (1 of 3 - 3-dose series) HEPATITIS B (1 of 3 - 3-dose series) [facility] Start: 1965 Hepatitis B Vaccine (1 of 3 - 3-dose series) Hepatitis B Vaccine (1 of 3 - 3-dose series) [facility] End: 10-10-2024 25-hydroxyvitamin D3 [Mass/volume] in Serum or Plasma VITAMIN D 25 HYDROXY Lab Routine 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) Vitamin D deficiency Every 3 months for 60 Occurrences starting 10/11/2023 until 10/10/2024, 1 completed [employer] Work Phone: Comment on above: Every 3 months for 60 Occurrences starti ng 10/11/2023 until 10/10/2024, 1 completed ACETYLCHOLINE REC BI NDING AB ACETYLCHOLINE REC BINDING AB Lab Routine Ptosis of eyelid, right Right eye sensitive to light 03/26/2022 2:13 PM EDT [facility] Work Phone: End: 10-10-2024 ALBUMIN/CREAT RATIO RND UR ALBUMIN/CREAT RATIO RND UR Lab Routine 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) Every 3 months for 60 Occurrences starting 10/11/2023 until 10/10/2024, 1 completed Li [facility] [employer] Work Phone: Comment on above: Every 3 months for 60 Occurrences starti ng 10/11/2023 until 10/10/2024, 1 completed Bacteria identified in Blood by Culture Blood Culture [facility] Work Phone: Bacteria identified in Urine by Culture Urine Culture [facility] Work Phone: Bacteria identified in Urine by Culture URINE CULTURE Microbiology Routine Lower urinary tract symptoms 02/11/2024 2:19 PM EDT [facility] Blood culture [facility] Work Phone: End: 10-10-2024 CBC panel - Blood by Automated count CBC Lab Routine 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) Every 3 months for 60 Occurrences starting 10/11/2023 until 10/10/2024, 1 completed [facility] [employer] Work Phone: Comment on above: Every 3 months for 60 Occurrences starti ng 10/11/2023 until 10/10/2024, 1 completed End: 10-10-2024 Comprehensive metabolic 2000 panel - Serum or Plasma COMP METABOLIC PANEL Lab Routine 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) Every 3 months for 60 Occurrences starting 10/11/2023 until 10/10/2024, [address] [facility] Work Phone: Comment on above: Every 3 months for 60 Occurrences starti ng 10/11/2023 until 10/10/2024, 1 completed End: 02-01-2025 CT Chest for screening WO contrast CT LUNG SCREEN WO IVCON Radiology Routine Encounter for screening for lung cancer Former smoker 1 Occurrences starting 01/03/2024 until 02/01/2025 [facility] Work Phone: Comment on above: 1 Occurrences starting 01/03/2024 until 02/01/2025 CT Chest for screeni ng WO contrast CT LUNG SCREEN WO IVCON Radiology Routine Encounter for screening for lung cancer Former smoker 02/02/2024 1:[address] [facility] Work Phone: End: 03-09-2025 CT Chest for screening WO contrast CT LUNG SCREEN WO IVCON Radiology Routine Former smoker 1 Occurrences starting 02/08/2024 until 03/09/2025 [facility] Work Phone: Comment on above: 1 Occurrences starting 02/08/2024 until 03/09/2025 End: 01-11-2026 CT Chest for screening WO contrast CT LUNG SCREEN WO IVCON Radiology Routine Personal history of tobacco use, presenting hazards to health 1 Occurrences starting 12/12/2024 until 01/11/2026 [facility] Work Phone: Comment on above: 1 Occurrences starting 12/12/2024 until 01/11/2026 End: 05-01-2023 Ct thorax w/o contrast material CT CHEST WO IVCON Radiology Routine Myasthenia gravis (HCC) 1 Occurrences starting 04/01/2022 until 05/01/2023 [facility] Work Phone: Comment on above: 1 Occurrences starting 04/01/2022 until 05/01/2023 End: 08-02-2023 Ct thorax w/o contrast material CT CHEST WO IVCON Radiology Routine Malignant neoplasm of thymus (HCC) 1 Occurrences starting 07/03/2022 until 08/02/2023 [facility] Work Phone: Comment on above: 1 Occurrences starting 07/03/2022 until 08/02/2023 End: 07-17-2022 Ct thorax w/o contrast material [facility] Work Phone: Comment on above: 1 Occurrences starting 07/17/2022 until 07/17/2022 End: 11-16-2025 DBT Breast - bilateral screening DIANNA SCREENING W [facility] Radiology Routine Encounter for screening mammogram for breast cancer 1 Occurrences starting 10/17/2024 until 11/16/2025 [facility] Work Phone: Comment on above: 1 Occurrences starting 10/17/2024 until 11/16/2025 End: 01-20-2024 ECG COMPLETE ECG COMPLETE ECG Routine Screening for ischemic heart disease 1 Occurrences starting 01/19/2023 until 01/20/2024 [facility] Work Phone: Comment on above: 1 Occurrences starting 01/19/2023 until 01/20/2024 End: 12-19-2023 Echocardiography ECHO Cardiology Routine Generalized edema 1 Occurrences starting 12/18/2022 until 12/19/2023 [facility] Work Phone: Comment on above: 1 Occurrences starting 12/18/2022 until 12/19/2023 End: 01-16-2024 Echocardiography ECHO Cardiology Routine Pericardial effusion (noninflammatory) 1 Occurrences starting 01/15/2023 until 01/16/2024 [facility] Work Phone: Comment on above: 1 Occurrences starting 01/15/2023 until 01/16/2024 End: 01-26-2024 Echocardiography ECHO Cardiology Routine Pericardial effusion 1 Occurrences starting 01/25/2023 until 01/26/2024 [facility] Work Phone: Comment on above: 1 Occurrences starting 01/25/2023 until 01/26/2024 End: 10-10-2024 Hemoglobin A1c in Blood HGB A1C Lab Routine 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) Every 3 months for 60 Occurrences starting 10/11/2023 until 10/10/2024, [address] [facility] Work Phone: Comment on above: Every 3 months for 60 Occurrences starti ng 10/11/2023 until 10/10/2024, 1 completed Hzv zoster vacc recombinant adjuvanted im njx ZOSTER VACCINE, RECOMBINANT (SHINGRIX) Immunization/Injection Routine Encounter for immunization 1 Occurrences starting 07/22/2023 [facility] Work Phone: Comment on above: 1 Occurrences starting 07/22/2023 INFLUENZA VACCINE, A GE 6 MO - 64 YR, QUADRIVALENT (AFLURIA, FLULAVAL, FLUZONE) INFLUENZA VACCINE, AGE 6 MO - 64 YR, QUADRIVALENT (AFLURIA, FLULAVAL, FLUZONE) Immunization/Injection Routine Encounter for immunization Ordered: 07/22/2023 [facility] Work Phone: Comment on above: Ordered: 07/22/2023 LRP4 AUTOANTIBODY TEST LRP4 AUTO ANTIBODY TEST Lab Routine Ptosis of eyelid, right Right eye sensitive to light 03/26/2022 2:[address] [facility] Work Phone: End: 12-30-2024 LUNG DIFFUSION CAPACITY (DLCO) LUNG DIFFUSION CAPACITY (DLCO) PFT Routine Post-COVID chronic dyspnea 1 Occurrences starting 12/01/2023 until 12/30/2024 [facility] Work Phone: Comment on above: 1 Occurrences starting 12/01/2023 until 12/30/2024 End: 01-05-2026 LUNG DIFFUSION CAPACITY (DLCO) LUNG DIFFUSION CAPACITY (DLCO) PFT Routine Post-COVID chronic dyspnea Former smoker 1 Occurrences starting 12/06/2024 until 01/05/2026 [facility] Comment on above: 1 Occurrences starting 12/06/2024 until 01/05/2026 LUNG DIFFUSION CAPAC ITY (DLCO) LUNG DIFFUSION CAPACITY (DLCO) PFT Routine Post-COVID chronic dyspnea Former smoker 12/25/2024 2:[address] [facility] Work Phone: End: 01-05-2026 LUNG VOLUMES LUNG VOLUMES PFT Routine Post-COVID chronic dyspnea Former smoker 1 Occurrences starting 12/06/2024 until 01/05/2026 [facility] Comment on above: 1 Occurrences starting 12/06/2024 until 01/05/2026 LUNG VOLUMES LUNG VOLUMES PFT Routine Post-COVID chronic dyspnea Former smoker 12/25/2024 2:[address] [facility] Work Phone: End: 01-01-2024 DIANNA SCREENING DIANNA SCREENING Radiology Routine Encounter for screening mammogram for breast cancer 1 Occurrences starting 12/02/2022 until 01/01/2024 [facility] Work Phone: Comment on above: 1 Occurrences starting 12/02/2022 until 01/01/2024 End: 12-09-2024 MG Breast Screening DIANNA SCREENING Radiology Routine Encounter for screening mammogram for breast cancer 1 Occurrences starting 11/10/2023 until 12/09/2024 [facility] Work Phone: Comment on above: 1 Occurrences starting 11/10/2023 until 12/09/2024 MUSK ANTIBODY TEST MUSK ANTIBODY TEST Lab Routine Ptosis of eyelid, right Right eye sensitive to light 03/26/2022 2:[address] [facility] Work Phone: OXIMETRY - NOCTURNAL OXIMETRY - NOCTURNAL Procedures Routine Post-COVID chronic dyspnea Chronic hypoxemic respiratory failure (HCC) Ordered: 07/21/2022 [facility] Work Phone: Comment on above: Ordered: 07/21/2022 OXIMETRY - NOCTURNAL OXIMETRY - NOCTURNAL Procedures Routine Post-COVID chronic dyspnea Chronic hypoxemic respiratory failure (HCC) Ordered: 10/26/2022 [facility] Work Phone: Comment on above: Ordered: 10/26/2022 End: 11-25-2023 OXIMETRY WITH AMBULATION OXIMETRY WITH AMBULATION PFT Routine Post-COVID chronic dyspnea Chronic hypoxemic respiratory failure (HCC) 1 Occurrences starting 10/26/2022 until 11/25/2023 [facility] Work Phone: Comment on above: 1 Occurrences starting 10/26/2022 until 11/25/2023 End: 12-30-2024 OXIMETRY WITH AMBULATION OXIMETRY WITH AMBULATION PFT Routine Post-COVID chronic dyspnea 1 Occurrences starting 12/01/2023 until 12/30/2024 [facility] Work Phone: Comment on above: 1 Occurrences starting 12/01/2023 until 12/30/2024 Patient Education [facility] Work Phone: Patient referral [facility] Work Phone: Pneumococcal vaccination PNEUMOC OCCAL VACCINE (PREVNAR 20) Immunization/Injection Routine Encounter for immunization 1 Occurrences starting 07/22/2023 [facility] Work Phone: Comment on above: 1 Occurrences starting 07/22/2023 POST VOID RESIDUAL POST VOID RES IDUAL Procedures Routine Urinary retention Complicated UTI (urinary tract infection) Ordered: 09/29/2022 [facility] Work Phone: Comment on above: Ordered: 09/29/2022 Protein [Mass/time] in 24 hour Urine PROTEIN, 24 HOUR URINE Lab Routine Pedal edema Ordered: 11/28/2024 [facility] Comment on above: Ordered: 11/28/2024 End: 07-30-2024 Radex spine lumbosacral minimum 4 views XR LUMBAR MOTION 4V AP/LAT/ FLEX/EXT Radiology Routine Lumbar spondylosis 1 Occurrences starting 07/01/2023 until 07/30/2024 [facility] Work Phone: Comment on above: 1 Occurrences starting 07/01/2023 until 07/30/2024 Radex spine lumbosac ral minimum 4 views XR LUMBAR MOTION 4V AP/LAT/ FLEX/EXT Radiology Routine Lumbar spondylosis 07/01/2023 3:[address] [facility] Work Phone: End: 01-23-2023 Screening mammography bi 2-view breast inc cad DIANNA SCREENING Radiology Routine Encounter for screening mammogram for breast cancer 1 Occurrences starting 12/24/2021 until 01/23/2023 [facility] Work Phone: Comment on above: 1 Occurrences starting 12/24/2021 until 01/23/2023 End: 12-30-2024 SPIROMETRY WITH DILATOR IF OBSTRUCTED SPIROMETRY WITH DILATOR IF OBSTRUCTED PFT Routine Post-COVID chronic dyspnea 1 Occurrences starting 12/01/2023 until 12/30/2024 [facility] Work Phone: Comment on above: 1 Occurrences starting 12/01/2023 until 12/30/2024 End: 01-05-2026 SPIROMETRY WITH DILATOR IF OBSTRUCTED SPIROMETRY WITH DILATOR IF OBSTRUCTED PFT Routine Post-COVID chronic dyspnea Former smoker 1 Occurrences starting 12/06/2024 until 01/05/2026 [facility] [employer] Work Phone: Comment on above: 1 Occurrences starting 12/06/2024 until 01/05/2026 SPIROMETRY WITH DILA TOR IF OBSTRUCTED SPIROMETRY WITH DILATOR IF OBSTRUCTED PFT Routine Post-COVID chronic dyspnea Former smoker 12/25/2024 2:[address] [facility] Work Phone: Thyrotropin [Units/volume] in Serum or Plasma TSH BLD Lab Routine Ptosis of eyelid, right Right eye sensitive to light 03/26/2022 2:[address] [facility] Work Phone: End: 10-10-2024 Thyrotropin [Units/volume] in Serum or Plasma TSH BLD Lab Routine 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) Acquired hypothyroidism Every 3 months for 60 Occurrences starting 10/11/2023 until 10/10/2024, 1 completed [employer] Work Phone: Comment on above: Every 3 months for 60 Occurrences starti ng 10/11/2023 until 10/10/2024, 1 completed Thyroxine (T4) free [Mass/volume] in Serum or Plasma T4 FREE/FREE THYROX Lab Routine Ptosis of eyelid, right Right eye sensitive to light 03/26/2022 2:[address] [facility] Work Phone: End: 10-10-2024 Thyroxine (T4) free [Mass/volume] in Serum or Plasma T4 FREE/FREE THYROX Lab Routine 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) Acquired hypothyroidism Every 3 months for 60 Occurrences starting 10/11/2023 until 10/10/2024, 1 completed [employer] [facility] [employer] Work Phone: Comment on above: Every 3 months for 60 Occurrences starti ng 10/11/2023 until 10/10/2024, 1 completed Triiodothyronine (T3 ) Free [Mass/volume] in Serum or Plasma T3 FREE BLD Lab Routine Ptosis of eyelid, right Right eye sensitive to light 03/26/2022 2:[address] [facility] Work Phone: End: 10-10-2024 Triiodothyronine (T3) Free [Mass/volume] in Serum or Plasma T3 FREE BLD Lab Routine 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) Acquired hypothyroidism Every 3 months for 60 Occurrences starting 10/11/2023 until 10/10/2024, [address] [facility] Work Phone: Comment on above: Every 3 months for 60 Occurrences starti ng 10/11/2023 until 10/10/2024, 1 completed UA DIP B/O UA DIP B/O Lab R outine Lower urinary tract symptoms Ordered: 02/11/2024 [facility] Work Phone: Comment on above: Ordered: 02/11/2024 End: 06-22-2024 XR FOREARM GENERAL 2V AP/LAT RIGHT XR FOREARM GENERAL 2V AP/LAT RIGHT Radiology Routine Fall, initial encounter Right arm pain Right hand pain 1 Occurrences starting 05/24/2023 until 06/22/2024 [facility] Work Phone: Comment on above: 1 Occurrences starting 05/24/2023 until 06/22/2024 XR FOREARM GENERAL 2 V AP/LAT RIGHT XR FOREARM GENERAL 2V AP/LAT RIGHT Radiology Routine Fall, initial encounter Right arm pain Right hand pain 05/24/2023 3:[address] [facility] Work Phone: End: 06-22-2024 XR HAND GENERAL 3V PA/LAT/OBL RIGHT XR HAND GENERAL 3V PA/LAT/OBL RIGHT Radiology Routine Fall, initial encounter Right arm pain Right hand pain 1 Occurrences starting 05/24/2023 until 06/22/2024 [facility] Work Phone: Comment on above: 1 Occurrences starting 05/24/2023 until 06/22/2024 XR HAND GENERAL 3V PA/LAT/OBL RIGHT XR HAND GENERAL 3V PA/LAT/OBL RIGHT Radiology Routine Fall, initial encounter Right arm pain Right hand pain 05/24/2023 3:[address] [facility] Work Phone: End: 07-14-2025 XR Shoulder - left 2 Views XR SHOULDER LIMITED 2V AP/TRUE AP LEFT Radiology Routine Injury of left rotator cuff, subsequent encounter 1 Occurrences starting 06/14/2024 until 07/14/2025 [facility] Work Phone: Comment on above: 1 Occurrences starting 06/14/2024 until 07/14/2025 XR Shoulder - left 2 Views XR SHOULDER LIMITED 2V AP/TRUE AP LEFT Radiology Routine Injury of left rotator cuff, subsequent encounter 06/14/2024 2:32 PM EDT [facility] XR Shoulder - left 2 Views XR SHOULDER LIMITED 2V AP/TRUE AP LEFT Radiology Routine Other closed nondisplaced fracture of proximal end of left humerus, initial encounter 06/26/2024 3:[address] [facility] Work Phone: [facility] Immunizations Immunization Date Immunization Notes Care Provider Emerita morales 08-31-2018 influenza virus vaccine, unspecified formulation Ericka Zamora OD Work Phone: [facility] 06-26-2015 tetanus toxoid, redu jolie diphtheria toxoid, and acellular pertussis vaccine, adsorbed Ericka Zamora OD Work Phone: [facility] 06-25-2015 tetanus and diphther ia toxoids, adsorbed, preservative free, for adult use (2 Lf of tetanus toxoid and 2 Lf of diphtheria toxoid) Dr. Sarina Adams MD Work Phone: [facility] 06-25-2015 tetanus and diphther ia toxoids, adsorbed, preservative free, for adult use (5 Lf of tetanus toxoid and 2 Lf of diphtheria toxoid) Ericka Zamora OD Work Phone: [facility] 04-19-2014 pneumococcal polysaccharide vaccine, 23 valent Ericka Zamora OD Work Phone: [facility] NEGATED: Highlighted row has not occurred!07-22-2023 influenza, injectable, quadrivalent, contains preservative Denise Alvarado APRN.FELLING MACHINE OPERATOR Work Phone: [facility] Work Phone: Comment on above: Deferred: Postponed - Maylin Delaney Payers Date Payer Category Payer Self-pay [id number] 2024 Private Health Insurance [employer] [id number] 2024 Unknown [employer] X [id number] 2024-Present [phone] [address] [address] [place] [address] O [id number] 2024 Unknown [id number] 2014 Medicaid [employer] [id number] 2014-Present [phone] [address] [place] [address] Medicaid [id number] 2014 Medicaid [id number] 2014 Unknown [employer] [id number] 2014 Unknown [id number] Unknown [id number] 462 Unknown [id number]. 462 Unknown [id number]. 462 Unknown [id number]. 462 Unknown [id number]. 462 Unknown [id number]. 462 Unknown [id number]. 462 Unknown [id number]. 462 Unknown [id number] [id number]. 462 Unknown [id number]. 462 Unknown [id number]. 462 Unknown [id number]. 462 Unknown [id number]. 462 Unknown [id number] 462 Social History Date Type Detail Facility Start: 03-08-2014 End: 07-09-2025 Tobacco smoking status NHIS Ex-smoker [facility] Start: 11-04-1983 End: 11-04-2013 History of tobacco use Current smoker [facility] Start: 11-04-1983 End: 11-04-2013 History of tobacco use Cigarette Smoker [facility] Start: 03-08-2014 End: 03-16-2023 Cigarettes smoked current (pack per day) - Reported 1 [facility] Start: 03-08-2014 End: 06-08-2024 Tobacco use and exposure Smokeless tobacco non-user [facility] Start: 12-25-2021 End: 09-29-2022 Alcohol intake Current drinker of alcohol (finding) [facility] Start: 08-15-2020 End: 12-14-2022 History SDOH Alcohol Frequency 3 [facility] Start: 08-15-2020 End: 10-23-2020 History SDOH Alcohol Std Drinks 1 [facility] Start: 12-09-2021 History SDOH Alcohol Comment wine cool every once in a while [facility] Start: 08-15-2020 End: 10-23-2020 History SDOH Social Connections Membership 2 [facility] Start: 08-15-2020 End: 12-14-2022 History SDOH Social Connections Living 4 [facility] Start: 08-15-2020 End: 12-14-2022 History SDOH Physical Activity DPW 0 [facility] Start: 08-15-2020 Education 10 [facility] Start: 1965 Sex Assigned At Female [facility] Start: 11-09-2021 End: 08-28-2022 Exposure to SARS-CoV-2 (event) Not sure [facility] Start: 06-27-2022 End: 07-07-2022 Exposure to SARS-CoV-2 (event) Unable to assess [facility] Work Phone: Start: 08-10-2022 End: 08-12-2023 Tobacco smoking status NHIS Unknown if ever smoked [facility] Start: 10-07-2021 Alcohol intake Current non-drinker of alcohol (finding) [facility] Start: 03-26-2023 End: 05-29-2025 Alcohol intake Ex-drinker (finding) [facility] Start: 12-14-2022 End: 03-16-2023 Social connection and isolation panel [facility] Do you belong to any clubs or organizations such as jehovah's witness groups, unions, fraternal or athletic groups, or school groups? No [facility] Are you now , , , , never or living with a partner? [facility] How often to you hav e a drink containing alcohol? Monthly or less [facility] How many standard dr inks containing alcohol do you have on a typical day? 1 or 2 [facility] How often do you hav e 6 or more drinks on 1 occasion? Never [facility] How hard is it for y ou to pay for the very basics like food, housing, medical care, and heating Not very hard [facility] Start: 09-04-2012 Adult Depression Screening Assessment 2 [facility] Work Phone: Do you feel stress - tense, restless, nervous, or anxious, or unable to sleep at night because your mind is troubled all the time - these days [OSQ] Not at all [facility] (I/We) worried whejimmy er (my/our) food would run out before (I/we) got money to buy more. Never true [facility] Start: 01-11-2021 Gender identity Identifies as female gender (finding) [facility] Start: 01-11-2021 Sexual orientation Heterosexual (finding) [facility] Do you feel stress - tense, restless, nervous, or anxious, or unable to sleep at night because your mind is troubled all the time - these days [OSQ] Only a little [facility] Medical Equipment Procedure Code Equipment Code Equipment Original Text Equipment Identifier Dates [id number] Implant - [id number] Start: 06-26-2015 Stent Uret 6fr 24cm W/O 2 - [id number] Start: 04-25-2014 Comment on above: Description: uretera l Stent [id number], [id number], [id number], [id number], [id number], [id number], [id number], [id number], [id number], [id number], [id number], [id number], [id number], [id number] Start: 01-14-2021 End: 05-02-2025 Comment on above: [...] Assessment Result Facility 07-12-2025 Functional status Ambulates [facility] Work Phone: 02-06-2015 Are you deaf, or do you have serious difficulty hearing No 02/06/2015 2:42 PM Ruby Fountain LPN No [facility] 02-06-2015 Are you blind, or do you have serious difficulty seeing, even when wearing glasses No 02/06/2015 2:42 PM Ruyb Fountain LPN No [facility] 02-06-2015 Do you have serious difficulty walking or climbing stairs No 02/06/2015 2:42 PM Ruby Fountain LPN No [facility] 02-06-2015 Do you have difficul ty dressing or bathing No 02/06/2015 2:42 PM Ruby Fountain LPN No [facility] 02-06-2015 Because of a physica l, mental, or emotional condition, do you have difficulty doing errands alone such as visiting a physician's office or shopping No 02/06/2015 2:42 PM Ruby Fountain LPN No [facility] Mental Status Date Assessment Result Facility 07-12-2025 Cognitive function Voice/Name [facility] Work Phone: 07-09-2025 Cognitive function Voice/Name [facility] Work Phone: 01-05-2023 Cognitive function Voice/Name [facility] Work Phone: 08-09-2022 Cognitive function Level Of Cons ciousness Awake;Alert;Appropriate;Fol lows Commands [facility] Work Phone: 02-06-2015 Because of a physica l, mental, or emotional condition, do you have serious difficulty concentrating, remembering, or making decisions No 02/06/2015 2:42 PM EDT Ruby Coffman LPN No [facility] Clinical Notes 05-09-2021 to 08-09-2025 Note Date & Type Note Facility 08-09-2025 Note HNO ID: [id number] Author: DENISE ALVARADO APRN.FELLING MACHINE OPERATOR Service: ? Author Type: Nurse Specialist Type: Progress Notes Filed: 08/09/2025 15:28 Note Text: Subjective Patient ID: Samantha is a 59 year old female who presents for No chief complaint on file.. HPI Samantha Romero for hospital discharge follow-up visit. She was admitted to [facility] July 09 through July 12, 2025 for acute on chronic heart failure with preserved ejection fraction. Discharge diagnoses acute on chronic heart failure with preserved ejection fraction, acute on chronic diastolic heart failure fluid overloaded acute and chronic respiratory failure with hypoxia. She presented to the ER from banking specialist office due to increased shortness of breath [...] Pain: - Chronic back pain managed with Richmond and gabapentin. - Pain exacerbated by prolonged standing, such as doing dishes. - Requests refill for Richmond, due on the or . - Reports [...] Status: She is (more content not included)... [facility] 08-03-2025 Note [facility] Medical Records Department [address] [place] [address] Discharge Summary 08/03/25 1602 MR#: [id number] Acct: [id number] Name: SAMANTHA ROMERO Rep #: [id number] : 1965 59 From: Sol Mock DO PCP: Dr. Sarina Adams MD Status:DIS IN Location: [facility] [id number] Providers Date of Admission: 08/01/25 Date of [...] #30 tabs 08/03/25 (more content not included)... [facility] 07-12-2025 Consult note [facility] 07-12-2025 Discharge summary Note Date/Time July 12, 2025 3:08pm [facility] Medical Records Department [address] [place] [address] Discharge Summary 07/12/25 1500 MR#: [id number] Acct: [id number] Name: SAMANTHA ROMERO Rep #:[id number] : 1965 59 From: Asya Hernandez MD PCP: Dr. Sarina Adams MD Status:AD M IN [id number] Providers Date of Admission: 07/09/25 [...] 2 L nasal cannula, GERD who presented [facility] ED 07/10/2025 from her pulmonary [...] When you eat out, ask that the lime kiln worker not add any salt to your dish. Don't eat fried or greasy foods. Be careful of bottled beverages. They can contain a lot of salt -Call 911 right away if you have: -Severe shortness of breath, such that you can't catch your breath even while resting -Severe chest pain that does not resolve with rest or nitroglycerin -Shelby, foamy mucus with cough and shortness of [...] When you eat out, ask that the lime kiln worker not add any salt to your dish. Don't eat fried or greasy foods. Be careful of bottled beverages. They can contain a lot of salt -Call 911 right away if you have: -Severe shortness of breath, such that you can't catch your breath even while resting -Severe chest pain that does not resolve with rest or nitroglycerin -Shelby, foamy mucus with cough and shortness of [...] Self Care Charges/Coding Visit Charges Inpatient E&M: 89150 Disch Hosp >30min 07/12/25 1508 <Electronically signed by Asya Hernandez MD> Cosigner Signature (if applicable): CC: Dr. Sarina Adams MD; Dr. Asya Hernandez MD~ Signed [facility] Work Phone: 1(238) 842-419310-09-2025 Consult note Author Emmanuel Saha [facility] Note Date/Time July 12, 2025 6: 28pm [facility] Medical Records Department [address] [place] [address] Counseling Note - Pharmacy 07/12/25 1506 MR#: [id number] Acct: [id number] Name: SAMANTHA ROMERO Kerri Rep #:[id number] : 1965 59 From: Emmanuel segovia PCP: Dr. Sarina Adams MD Status:DANDRE Manning [place] Location: [place] [id number] [place] Med Reconciliation Pharmacy Service has performed discharge [...] Signature (if applicable): Date CC: ~ Signed [facility] Work Phone: 1(550) 643-135110-09-2025 Discharge summary Author Asya Hernandez [facility] Note Date/Time July 12, 2025 3: 00pm [facility] Medical Records Department [address] [place] [address] Instructions for Home/Discharge Instructions 07/12/25 1457 MR#: [id number] Acct: [id number] Name: SAMANTHA ROMERO Rep #:[id number] : 1965 59 From: Asya Hernandez MD [...] When you eat out, ask that the lime kiln worker not add any salt to your dish. Don't eat fried or greasy foods. Be careful of bottled beverages. They can contain a lot of salt -Call 911 right away if you have: -Severe shortness of breath, such that you can't catch your breath even while resting -Severe chest pain that does not resolve with rest or nitroglycerin -Shelby, foamy mucus with cough and shortness of [...] Asya Hernandez MD>Asya Hernandez MD CC: Dr. Tvao Nielson DO; Dr. Sarina Adams MD ~ Signed [facility] Work Phone: [phone] 214-157910-09-2025 Discharge summary [facility] Medical Records Department [address] [place] [address] Discharge Summary 07/12/25 1500 MR#: [id number] Acct: [id number] Name: SAMANTHA ROMERO Rep #:[id number] : 1965 59 From: Asya Hernandez MD PCP: Dr. Sarina Adams MD Status:AD M IN Location: [place] [id number]- 1 Providers Date of Admission: 07/09/25 Date [...] 2 L nasal cannula, GERD who presented [facility] ED 07/10/2025 from her pulmonary [...] When you eat out, ask that the lime kiln worker not add any salt to your dish. Don't eat fried or greasy foods. Be careful of bottled beverages. They can contain a lot of salt -Call 911 right away if you have: -Severe shortness of breath, such that you can't catch your breath even while resting -Severe chest pain that does not resolve with rest or nitroglycerin -Shelby, foamy mucus with cough and shortness of [...] When you eat out, ask that the lime kiln worker not add any salt to your dish. Don't eat fried or greasy foods. Be careful of bottled beverages. They can contain a lot of salt -Call 911 right away if you have: -Severe shortness of breath, such that you can't catch your breath even while resting -Severe chest pain that does not resolve with rest or nitroglycerin -Shelby, foamy mucus with cough and shortness of [...] Self Care Charges/Coding Visit Charges Inpatient E&M: 01019 Disch Hosp >30min 07/12/25 1508 Cosigner Signature (if applicable): CC: Dr. Sarina Adams MD; Dr. Asya Hernandez MD~ Signed [facility]10-09-2025 Discharge summary [facility] Medical Records Department [address] [place] [address] Instructions for Home/Discharge Instructions 07/12/25 1457 MR#: [id number] Acct: [id number] Name: SAMANTHA ROMERO Rep #:[id number] : 1965 59 From: Asya Hernandez MD [...] When you eat out, ask that the lime kiln worker not add any salt to your dish. Don't eat fried or greasy foods. Be careful of bottled beverages. They can contain a lot of salt -Call 911 right away if you have: -Severe shortness of breath, such that you can't catch your breath even while resting -Severe chest pain that does not resolve with rest or nitroglycerin -Shelby, foamy mucus with cough and shortness of [...] Nielson DO; Dr. Sarina Adams MD ~ [facility]10-09-2025 [facility] Medical Records Department [address] [place] [address] Discharge Summary 07/12/25 1500 MR#: [id number] Acct: [id number] Name: SAMANTHA ROMERO Kerri Rep #: [id number] : 1965 59 From: Asya Hernandez MD PCP: Dr. Sarina Adams MD Status:ADM IN Location: [place] [id number] Providers Date of Admission: 07/09/25 Date of [...] 2 L nasal cannula, GERD who presented [facility] ED 07/10/2025 from her pulmonary [...] home. Discharge instructions as (more content not included)...[facility]10-08-2025 Progress note Author Asya Hernandez [facility] Note Date/Time July 11, 2025 10 :58am [facility] Medical Records Department [address] [place] [address] Progress Note - Hospitalist 07/11/25 1054 MR#: [id number] Acct: [id number] Name: SAMANTHA ROMERO Rep #:[id number] : 1965 59 From: Asya Hernandez MD PCP: Dr. Sarina Adams MD Status:AD M IN Location: [place] [address] Reason for Visit Chief Complaint: Shortness of [...] 2 L nasal cannula, GERD who presented [facility] ED 07/10/2025 from her pulmonary [...] Hernandez MD Charges/Coding Visit Charges Inpatient E&M: 72978 Subs Hosp L2 07/11/25 1058 <Electronically signed by Asya Hernandez MD> Cosigner Signature (if applicable): CC: ~ Signed [facility] Work Phone: 1(864) 452-100110-08-2025 Progress note [facility] Medical Records Department [address] [place] [address] Progress Note - Hospitalist 07/11/25 1054 MR#: [id number] Acct: [id number] Name: SAMANTHA ROMERO Rep #:[id number] : 1965 59 From: Asya Hernandez MD PCP: Dr. Sarina Adams MD Status:AD M IN Location: [place] [address] Reason for Visit Chief Complaint: Shortness of [...] 2 L nasal cannula, GERD who presented [facility] ED 07/10/2025 from herpulmonary office [...] Hernandez MD Charges/Coding Visit Charges Inpatient E&M: 84669 Subs Hosp L2 07/11/25 1058 Cosigner Signature (if applicable): CC: ~ Signed [facility]10-07-2025 Progress note Author Asya Hernandez [facility] Note Date/Time July 10, 2025 2: 18pm [facility] Medical Records Department [address] [place] [address] Progress Note - Hospitalist 07/10/25 0733 MR#: [id number] Acct: [id number] Name: SAMANTHA ROMERO Rep #:[id number] : 1965 59 From: Asya Hernandez MD PCP: Dr. Sarina Adams MD Status:AD M IN Location: [place] [address] Reason for Visit Chief Complaint: Shortness of [...] 71.8 H, Lymph % (Auto) 15.5 L, White % (Auto) 7.2, Eos % (Auto) 4.4, [...] Neut % (Auto) 59.1, Lymph % (Auto) 23.4,White % (Auto) 9.5, Eos % (Auto) 6.8 [...] edema. No sizable pleural effusion. Reading Location: [facility] Physical Exam Narrative General: Alert, no [...] 2 L nasal cannula, GERD who presented [facility] ED 07/10/2025 from her pulmonary [...] Hernandez MD Charges/Coding Visit Charges Inpatient E&M: 26730 Subs Hosp L2 07/10/25 1418 <Electronically signed by Asya Hernandez MD> Cosigner Signature (if applicable): CC: ~ Signed [facility] Work Phone: [phone] 950-556310-07-2025 Progress note [facility] Medical Records Department [address] [place] [address] Progress Note - Hospitalist 07/10/25 0733 MR#: [id number] Acct: [id number] Name: SAMANTHA ROMERO Kerri Rep #:[id number] : 1965 59 From: Asya Hernandez MD PCP: Dr. Sarina Adams MD Status:AD M IN Location: [place] [address] Reason for Visit Chief Complaint: Shortness of [...] 71.8 H, Lymph % (Auto) 15.5 L, White % (Auto) 7.2, Eos % (Auto) 4.4, [...] 0.800,Neut % (Auto) 59.1, Lymph % (Auto) 23.4,White % (Auto) 9.5, Eos % (Auto) 6.8 [...] edema. No sizable pleural effusion. Reading Location: [facility] Physical Exam Narrative General: Alert, no [...] 2 L nasal cannula, GERD who presented [facility] ED 07/10/2025 from herpulmonary office [...] Hernandez MD Charges/Coding Visit Charges Inpatient E&M: 66673 Subs Hosp L2 07/10/25 1411 Cosigner Signature (if applicable): CC: ~ Signed [facility]10-06-2025 History and physical note Author Tavo Nielson [facility] Note Date/Time July 09, 2025 6: 40pm [facility] Medical Records Department [address] [place] [address] H&P Exam - Hospitalist 07/09/25 1834 MR#: [id number] Acct: [id number] Name: SAMANTHA ROMERO Rep #:[id number] : 1965 59 From: Tavo Nielson DO PCP: Dr. Sarina Adams MD Status:AD M IN Location: [facility] [id number]- 1 HPI - General General Date of Service: 07/09/25 Chief Complaint: Shortness of breath HPI Narrative SAMANTHA ROMERO, is a 59 F who presents with shortness of breath. This is a 59-year-old female who is on oxygen since having COVID 4-1/2 years ago. Went tosee her banking specialist and just has been progressively more short [...] she does require at home. [ ] [facility] Medical History COVID History of hypothyroidism Type [...] 71.8 H, Lymph % (Auto) 15.5 L, White % (Auto) 7.2, Eos % (Auto) 4.4, [...] edema. No sizable pleural effusion. Reading Location: [id number] Assessment & Plan Assessment/Plan (1) CHF exacerbation: [...] full code. Charges/Coding Visit Charges Inpatient E&M: 59548 Init Hosp L2 07/09/25 1840 <Electronically signed by Tavo Nielson DO> Cosigner Signature (if applicable): CC: Dr. Tavo Nielson DO; Dr. Sarina Adams MD~ Signed [facility] Work Phone: 1(337) 526-850410-06-2025 Evaluation note* Diagnosis Onset Date Resolution Status Admit Date 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 re with preserved ejection fraction acute July 09 6:29pm Acute on chronic hypoxic respiratory failure chronic July 09, 2025 6:29pm CHF exacerbation chronic July 09, 2025 6:29pm Dyspnea on exertion inactive Octob er 2024 6:29pm Swelling of both lower extremities inactive July 09 6:29pm Fluid overload deleted July 6:29pm [facility] Work Phone: 1(302) 865-390410-06-2025 Discharge summary Author Niranjan Leblanc [facility] Note Date/Time July 09, 2025 6: 22pm [facility] Medical Records Department [address] [place] [address] Emergency Department Summary 07/09/25 MR#: [id number] Acct: [id number] Name: SAMANTHA ROMERO Rep #:[id number] : 1965 59 From: Niranjan Leblanc DO [...] the emergency department to be further evaluated. [facility] Medical History COVID History of hypothyroidism Type [...] Neurological: Patient documents that she was at [facility] years 2024 Skin: Warm, dry, intact no [...] myself as [facility] and there are no large pleural effusions noted on the CT of the chest no evidence of pneumothorax no consolidations to suggest pneumonia. Patient's EKG reviewed showed sinus rhythm at a rate of 70 bpm with IA interval of 202. Patient ambulated here in [...] 71.8 H Lymph % (Auto) 15.5 L White % (Auto) 7.2 Eos % (Auto) 4.4 [...] edema. No sizable pleural effusion. Reading Location: [facility] Discharge Plan Dx/Rx/DC Orders Clinical Impression: CHF exacerbation, Acute on chronic hypoxic respiratory failure, Dyspnea on exertion, Swelling of both lower extremities Disposition Disposition: Acute Care Hospital [facility] What to do if you have Problems For any increased pain, shortness of breath, bleeding, nausea or vomiting, chestpain, or any unexpected problems, contact your Primary Care Provider. Call [facility] ([phone]) or report to the closest Emergency Room. Call 911 if necessary. 07/09/25 182 <Electronically signed by Niranjan Leblanc DO> Cosigner Signature (if applicable): CC: Dr. Sarina Adasm MD ~ Signed [facility] Work Phone: 1(471) 872-852310-06-2025 History and physical note [facility] Medical Records Department [address] [place] [address] H&P Exam - Hospitalist 07/09/25 1834 MR#: [id number] Acct: [id number] Name: SAMANTHA ROEMRO Rep #:[id number] : 1965 59 From: Tavo Nielson DO PCP: Dr. Sarina Adams MD Status:AD M IN Location: [facility] CYI813- 1 HPI - General General Date of Service: 07/09/25 Chief Complaint: Shortness of breath HPI Narrative SAMANTHA ROMERO, is a 59 F who presents with shortness of breath. This is a 59-year-old female who is onoxygen since having COVID 4-1/2 years ago. Went tosee her banking specialist and just has been progressively more short [...] she does require at home. [ ] [facility] Medical History COVID History of hypothyroidism Type [...] 71.8 H, Lymph % (Auto) 15.5 L, White % (Auto) 7.2, Eos % (Auto) 4.4, [...] edema. No sizable pleural effusion. Reading Location: [id number] Assessment & Plan Assessment/Plan (1) CHF exacerbation: [...] full code. Charges/Coding Visit Charges Inpatient E&M: 44426 Init Hosp L2 07/09/25 1840 Cosigner Signature (if applicable): CC: Dr. Tavo Nielson DO; Dr. Sarina Adams MD~ Signed [facility]10-06-2025 Discharge summary [facility] Medical Records Department [address] [place] [address] Emergency Department Summary 07/09/25 MR#: [id number] Acct: [id number] Name: SAMANTHA ROMERO Rep #:[id number] : 1965 59 From: Niranjan Leblanc DO [...] the emergency department to be further evaluated. [facility] Medical History COVID History of hypothyroidism Type [...] Neurological: Patient documents that she was at [facility] years 2024 Skin: Warm, dry, intact no [...] [facility] there are no large pleural effusions noted on the CT of the chest no evidence of pneumothorax no consolidations to suggest pneumonia. Patient's EKG reviewed showed sinus rhythm at a rate of 70 bpm with IA interval of 202. Patient ambulated here in [...] 71.8 H Lymph % (Auto) 15.5 L White % (Auto) 7.2 Eos % (Auto) 4.4 [...] edema. No sizable pleural effusion. Reading Location: [facility] Discharge Plan Dx/Rx/DC Orders Clinical Impression: CHF exacerbation, Acute on chronic hypoxic respiratory failure, Dyspnea on exertion, Swelling of both lower extremities Disposition Disposition: Acute Care Hospital [facility] What to do if you have Problems For any increased pain, shortness of breath, bleeding, nausea or vomiting, chestpain, or any unexpected problems, contact your Primary Care Provider. Call [facility] ([phone]) or report tothe closest Emergency Room. Call 911 if necessary. 07/09/25 1822 Cosigner Signature (if applicable): CC: Dr. Sarina Adams MD ~ Signed [facility]10-06-2025 Radiology Diagnostic study note [facility] Imaging Services [address] [place] [address] Chest PA and Lateral MR#: [id number] Acct: [id number] Name: SAMANTHA ROMERO Rep #: [id number] : 1965 F 59 From: Jaden Schofield MD PCP: Dr. Sarina Adams MD Status: RE G ER Study:Chest PA and Lateral Date of Exam: 07/09/25 Exam# [id number] Ordering Dr: Justin Leblanc DO PROCEDURE: CHEST [...] edema. No sizable pleural effusion. Reading Location: [id number] CC: Dr. Sarina Adams MD; Dr. Niranjan Leblanc DO ~ Bingo Usher: Signed [facility]10-06-2025 NoteHNO ID: [id number] Author: KAY PAREDES APRN.CNP Service: ? Author Type: Nurse Practitioner Type: Progress Notes Filed: 07/09/2025 16:30 Note Text: Nursing spoke with patient and [id number] Asiya and they plan to take her to the ER now. Kay Paredes APRN.[facility]-2025 NoteHNO ID: [id number] Author: MARY WESLEY RN Service: ? Author Type: Registered Nurse Type: Progress Notes Filed: 07/09/2025 16:12 Note Text: EKG completed without difficulty. Tracing showing NSR. EKG given to Kay Paredes APRN.MANAGER APPOINTMENT. Mary Wesley RNOhio[facility]10-06-2025 NoteHNO ID: [id number] Author: KAY PAREDES APRN.CNP Service: ? Author [...] (MED OFFICE) - ECG COMPLETE Kay Paredes APRN.MANAGER APPOINTMENT July 09, 2025 3:45 PM History of [...] tamponade. Last ECG 05/22/2021. Modified Medical Research [place] Dyspnea Scale (MMRC) I am too breathless to leave the house or I am breathle (more content not included)...[place] [address]-06-2025 Discharge summary Author Niranjan Leblanc [facility] Note Date/Time July 09, 2025 6: 22pm [facility] Medical Records Department [address] [place] [address] Emergency Department Summary 07/09/25 MR#: [id number] Acct: [id number] Name: SAMANTHA ROMERO Rep #:[id number] : 1965 59 From: Niranjan Leblanc DO [...] the emergency department to be further evaluated. [facility] Medical History COVID History of hypothyroidism Type [...] Neurological: Patient documents that she was at [facility] years 2024 Skin: Warm, dry, intact no [...] myself as this was pushed over fromthe [facility] and there are no large pleural effusions noted on the CT of the chest no evidence of pneumothorax no consolidations to suggest pneumonia. Patient's EKG reviewed showed sinus rhythm at a rate of 70 bpm with IA interval of 202. Patient ambulated here in [...] 71.8 H Lymph % (Auto) 15.5 L White % (Auto) 7.2 Eos % (Auto) 4.4 [...] edema. No sizable pleural effusion. Reading Location: [facility] Discharge Plan Dx/Rx/DC Orders Clinical Impression: CHF exacerbation, Acute on chronic hypoxic respiratory failure, Dyspnea on exertion, Swelling of both lower extremities Disposition Disposition: Acute Care Hospital [facility] What to do if you have Problems For any increased pain, shortness of breath, bleeding, nausea or vomiting, chestpain, or any unexpected problems, contact your Primary Care Provider. Call [facility] ([phone]) or report to the closest Emergency Room. Call 911 if necessary. 07/09/251821 <Electronically signed by Niranjan Leblanc DO> Cosigner Signature (if applicable): CC: Dr. Sarina Adams MD ~ Signed [facility] Work Phone: 1(406) 580-435410-06-2025 NoteHNO ID: [id number] Author: ADDI NG RT(R) Service: ? Author Type: Scrap Shear Operator Type: Progress Notes Filed: 07/09/2025 16:01 Note [...] PATIENT PRESENTS WITH AN IMPLANTABLE OR ATTACHED CHURCH HISTORY PROFESSOR: No RADIOLOGY DEPARTMENT: CT; Exam(s) Completed: Lung Screening. Anesthesia: No PERIPHERAL IV DATA: Not applicable SIGNED BY: FELISA TenaR) July 09, 2025 4:01 [facility]09-30-2025 NoteHNO ID: [id number] Author: DENISE ALVARADO APRN.FELLING MACHINE OPERATOR Service: ? Author Type: Nurse Specialist Type: [...] Pain: - Chronic back pain managed with Richmond and gabapentin. - Pain exacerbated by prolonged standing, such as doing dishes. - Requests refill for [place], due on the or . - Reports [...] - 4.00 k/uL 1.19 0.85 (L) 1.26 White% % 8.1 11.1 5.9 Abs White <0.87 k/uL 0.43 0.45 0.42 Eosin% % [...] Negative Negative Ketones, Urine Negative Negative Specific [place], Ur 1.005 (more content not included)...[facility]09-09-2025 Telephone encounter Note* Telephone Encounter - [...] was identified. 06/12/2025 by Sarina Adams MD [facility]09-09-2025 Miscellaneous Notes* Telephone Encounter - Sarina Adams [...] refill has been called to pharmacy. PHARMACY: [facility]. * Telephone Encounter - Vanessa Li RN [...] days. Vanessa Li RN [facility] Telephone encounter Note * Telephone Encounter - Lucero Newell - 06/12/2025 10:32 AM EDT Patient calling again for status update on medication being sent to pharmacy. Patient states she is not feeling well and has been out of medication. Please call patient to notify when prescription has been sent to pharmacy. [facility]09-08-2025 Telephone encounter Note* Telephone Encounter - Jaylyn Vazquez LPN - 06/11/2025 5:52 PM EDT Ann-Marie notified, new RX sent to /[facility], 05/02/2025. Will check with pharmacy. Jaylyn Vazquez LPN [facility]09-08-2025 Miscellaneous Notes* Telephone Encounter - Jaylyn Vazquez [...] 11, 2025 3:30 PM [facility]Pe[facility] Telephone encounter Note * Telephone Encounter - [...] Sophie Wolfe June 11, 2025 3:30 PM [facility]09-08-2025 Telephone encounter Note* Telephone Encounter - Sophie Wolfe - 06/11/2025 12:33 PM EDT Patient calling to check the status of refill. Please return call to patient when the medication refill has been called to pharmacy. PHARMACY: [facility]. [facility]09-04-2025 Telephone encounter Note* Telephone Encounter - Vanessa [...] up to 30 days. Vanessa Li RN [facility]08-26-2025 History of Present illness Narrative* Denise Alvarado APRN.FELLING MACHINE OPERATOR - 05/29/2025 3:00 PM EDT Subjective Patient [...] it. 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 - Taking diabetes medication; unclear adherence Hypothyroidism. [...] 1.00 - 4.00 k/uL 1.19 0.85 (L) White% % 8.1 11.1 Abs White <0.87 k/uL 0.43 0.45 Eosin% % 4.5 [...] Level: 4 - Moderate documented in this encounterPeoples Hospital08-26-2025 NoteHNO ID: [id number] Author: DENISE ALVARADO APRN.ROLF Service: ? Author [...] - Using a continuous glucose monitor and [place] expresses satisfaction with it. 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 - Taking diabetes medication; unclear adherence Hypothyroidism. [...] 1.00 - 4.00 k/uL 1.19 0.85 (L) White% % 8.1 11.1 Abs White <0.87 k/uL 0.43 0.45 Eosin% % 4.5 [...] type (R60.9) 2. Tommy (more content not included)...[facility]08-19-2025 History of Present illness Narrative* Denise Alvarado, ODILON.FELLING MACHINE OPERATOR - 05/22/2025 3:00 PM EDT Subjective Patient [...] increased dyspnea. - Scheduled to see a banking specialist and pilot plant operator in July. Hypothyroidism: - Taking 300 mcg [...] 1.00 - 4.00 k/uL 1.19 0.85 (L) White% % 8.1 11.1 Abs White <0.87 k/uL 0.43 0.45 Eosin% % 4.5 [...] or similar at upcoming visit. Denise Alvarado APRN.FELLING MACHINE OPERATOR Medical Decision Making: Problems: Moderate: 2+ stable chronic illnesses and 1+ chronic illnesses with change Data: Unique test result(s) reviewed: 3+ Risk: Moderate: Drug management Medical Decision Making Level: 4 - Moderate documented in this encounterPeoples Hospital08-19-2025 NoteHNO ID: [id number] Author: DENISE ALVARADO APRN.FELLING MACHINE OPERATOR Service: ? Author Type: Nurse Specialist Type: [...] increased dyspnea. - Scheduled to see a banking specialist and pilot plant operator in July. Hypothyroidism: - Taking 300 mcg of thyroid medication; has missed doses. - [place] reports persistent fatigue. Diabetes: - Taking diabetes [...] 1.00 - 4.00 k/uL 1.19 0.85 (L) White% % 8.1 11.1 Abs White <0.87 k/uL 0.43 0.45 Eosin% % 4.5 [...] diuretic regimen; instructed to (more content not included)...[facility]08-04-2025 Telephone encounter Note* Telephone Encounter - [...] a day. Authorizing Provider: SARINA ADAMS MD [facility]08-04-2025 Miscellaneous Notes* Telephone Encounter - Sarina Adams [...] SARINA ADAMS MD * Telephone Encounter - [place] Sadie Hinkle - 05/07/2025 4:54 PM EDT Prescription Refill [...] mouth two times a day. Sadie Guevara [facility] May 07, 2025 4:57 PM documented in this encounterPeoples [facility]08-[facility]25 Telephone encounter Note * Telephone Encounter - [...] mouth two times a day. Sadie Guevara [facility] May 07, 2025 4:57 PM [facility]07-30-2025 Telephone encounter Note* Telephone Encounter - Jaylyn [...] Please advise. Thank you. Jaylyn Vazquez LPN. [facility]07-30-2025 Miscellaneous Notes* Telephone Encounter - Jaylyn Vazquez [...] you. Jaylyn Vazquez LPN. documented in this encounterPeoples Hospital07-30-2025 Telephone encounter Note * Telephone Encounter - [...] Please advise. Thank you. Rosana Ascencio MA. [facility]07-30-2025 Miscellaneous Notes* Telephone Encounter - Rosana Ascencio [...] you. Rosana Ascencio MA. documented in this encounterPeoples Hospital07-30-2025 Telephone encounter Note * Telephone Encounter - [...] Please advise. Thank you. Rosana Ascencio MA. [facility]07-30-2025 Miscellaneous Notes* Telephone Encounter - Rosana Ascencio [...] you. Rosana Ascencio MA. documented in this encounterPeoples Hospital07-08-2025 Telephone encounter Note * Telephone Encounter - [...] Please advise. Thank you. Jaylyn Vazquez LPN. [facility]07-08-2025 Miscellaneous Notes* Telephone Encounter - Jaylyn Vazquez [...] you. Jaylyn Vazquez LPN. documented in this encounterPeoples Hospital07-07-2025 Telephone encounter Note * Telephone Encounter - Jaylyn Vazquez LPN - 04/09/2025 7:40 PM EDT Patient asking for RX to go to [facility]. Patient has been identified by name and [...] Please advise. Thank you. Jaylyn Vazquez LPN. [facility]-07-[facility]25 Miscellaneous Notes* Telephone Encounter - Jaylyn Vazquez LPN - 04/09/2025 7:40 PM EDT Patient asking for RX to go to [facility]. Patient has been identified by name and [...] you. Jaylyn Vazquez LPN. documented in this encounterPeoples Hospital07-07-2025 Telephone encounter Note * Telephone Encounter - Jaylyn Vazquez LPN - 04/09/2025 7:39 PM EDT Patient wanting RX to go to [facility] Patient has been identified by name and [...] Please advise. Thank you. Jaylyn Vazquez LPN. [facility]-07-[facility]25 Miscellaneous Notes* Telephone Encounter - Jaylyn Vazquez LPN - 04/09/2025 7:39 PM EDT Patient wanting RX to go to [facility] Patient has been identified by name and [...] you. Jaylyn Vazquez LPN. documented in this encounterPeoples Hospital07-05-2025 Telephone encounter Note * Telephone Encounter - [...] 09, 2025. Authorizing Provider: SARINA ADAMS MD [facility]07-05-2025 Miscellaneous Notes* Telephone Encounter - Sarina Adams [...] Thank you. Jorge Moore. documented in this encounterPeoples Hospital07-03-2025 Telephone encounter Note * Telephone Encounter - [...] 06/28/2025 Please advise. Thank you. Jorge Moore. [facility]07-02-2025 NoteHNO ID: [id number] Author: ?, ?, ? Service: ? Author Type: ? Type: Progress Notes Filed: 04/04/2025 13:16 Note Text: Unable to reach patient, mailed colon[facility] letter[facility] 04-04-[facility] History of Present illness Narrative* Kimberly Brunson - 04/04/2025 1:15 PM EDT Unable to reach patient, mailed colonoscopy letter documented in this encounterPeoples Hospital06-26-2025 Telephone encounter Note * Telephone Encounter - Maylin Delaney LPN - 03/29/2025 11:31 AM EDT Called [facility]. They report pharmacy ran rx incorrectly. They say there is a paid claim today. [facility]06-26-[facility]25 Miscellaneous Notes* Telephone Encounter - Maylin Delaney [...] done on Tresiba rx, was transferred from [employer] to [facility]. Needs PA because of the high dose 80 units daily at bedtime. She is blocked could not fax a PA or send electronic PA request tothe office. PRIOR AUTHORIZATION Medication for Prior Authorization: Tresiba Other formulary meds available : NO Insurance Company: [employer] [place] [employer] phone number: [phone] Patient insurance ID number: [id number] Nida Hamilton LPN documented in this encounterPeoples Hospital06-25-2025 Telephone encounter Note * Telephone Encounter - Maylin Delaney LPN - 03/28/2025 4:25 PM EDT This was already completed and approved from 12/2024 to 12/2025 per encounter 12/11/24. Pharmacy notified. They report the pt should call her insurance. [facility]-25-[facility]25 Telephone encounter Note* Telephone Encounter - Maylin Delaney LPN - 03/28/2025 4:13 PM EDT Electronic PA requested. [facility]06-25-2025 Telephone encounter Note* Telephone Encounter - Nida Hamilton LPN - 03/28/2025 3:51 PM EDT Need PA done on Tresiba rx, was transferred from [employer] to [facility]. Needs PA because of the high dose 80 units daily at bedtime. She is blocked could not fax a PA or send electronic PA request tothe office. PRIOR AUTHORIZATION Medication for Prior Authorization: Tresiba Other formulary meds available : NO Insurance Company: [employer] phone number: [phone] Patient insurance ID number: [id number] Nida Hamilton LPN [facility]06-25-2025 NoteHNO ID: [id number] Author: COLE BOWER APRN.MANAGER APPOINTMENT Service: ? Author Type: Nurse Practitioner Type: [...] to maintain mobility. She is currently taking Richmond for pain management, which she reports is [...] sugar diagnostic (BLOOD GLUC (more content not included)...[facility]06-25-[facility] History of Present illness Narrative* Cole Bower APRN.MANAGER APPOINTMENT - 03/28/2025 3:12 PM EDT SUBJECTIVE Samantha [...] to maintain mobility. She is currently taking Richmond for pain management, which she reports is [...] by mouth two times a day. Insulin Catarina, Disposable, (DROPLET PEN NEEDLE) 31 gauge x [...] her doctor. Chronic Diastolic Congestive Heart Failure ([facility]) - 10/16/2024 Pericardial Effusion ([facility]) - 01/25/2023 Obesity, Class III, BMI >= 40 - 12/18/2022 Gastroesophageal Reflux Disease - 10/19/2022 Chronic Midline Low Back Pain - 10/19/2022 Esophageal Dysphagia - 10/19/2022 Gastroesophageal Reflux Disease With Esophagitis Without Hemorrhage - 10/19/2022 Comment: Intermittent reflux Myasthenia Gravis ([facility]) - 07/30/2022 Type 2 Diabetes Mellitus With Diabetic Neuropathy, With Long-Term Current Use of Insulin ([facility]) - 07/30/2022 Bilateral Leg Edema - 07/30/2022 Comment: worse on left Dysuria - 07/30/2022 Comment: Follow up with gynecology Pérez (Dyspnea On Exertion) - 12/09/2021 Chronic Hypoxemic Respiratory Failure ([facility]) - 12/09/2021 Pneumonia Due to Covid-19 Virus - 08/05/2021 Status Post Cataract Extraction and Insertion of Intraocular Lens of Right Eye - 06/03/2021 Combined Forms of Age-Related Cataract of Left Eye - 05/09/2021 Type 2 Diabetes Mellitus With Moderate Nonproliferative Diabetic Retinopathy With Macular Edema ([facility]) - 05/09/2021 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 Continue current [...] on chronic conditions and medications.. Cole Bower APRN-MANAGER APPOINTMENT documented in this encounterPeoples Hospital06-23-2025 NotePatient Outreach (ASWSTR) SAMANTHA ROMERO ([id number]) 1965 F Date Time Provider Department 03/26/25 [...] mouth at bedtime as needed. - Insulin Catarina, Disposable, (DROPLET PEN NEEDLE) 31 gauge x [...] (0.1 mg/gram) vaginal cream (more content not included)...[facility]06-05-2025 Telephone encounter Note* Telephone Encounter - Denise Alvarado APRN.CNS - 03/08/2025 4:32 PM EDT ok [facility]06-05-[facility] Miscellaneous Notes* Telephone Encounter - Denise Alvarado [...] 07, 2025 5:06 PM documented in this encounterPeoples Hospital06-04-2025 Telephone encounter Note * Telephone Encounter - [...] Nicole Grimm March 07, 2025 5:06 PM [facility]05-29-2025 Telephone encounter Note* Telephone Encounter - Maylin Delaney LPN - 03/01/2025 2:52 PM EDT [facility] and pull any refills. If anything else is neededit can be reviewed at 03/05/25 appt. [facility]29[facility] Miscellaneous Notes* Telephone Encounter - Maylin Delaney [...] will need all medications resubmitted to [facility]. She stated there is a question on her Trulicity being cancelled per Pharmacy. She also is having trouble getting her insulin. Please call today. Patient has been identified by name and birthdate. Duration of symptoms: N/A Person calling: self Call patient at: on cell Was an appointment scheduled: No Closing statement: Results or non-symptom based questions: Thank you for calling [facility], your call will be returned within the next business day. Sadie Hinkle documented in this encounterPeoples Hospital05-28-2025 Telephone encounter Note * Telephone Encounter - Sadie Perez - 02/28/2025 3:50 PM EDT Samantha is a patient of Sarina Adams MD today she has questions due to [facility] is closing and she will need all medications resubmitted to [facility]. She stated there is a question on her Trulicity being cancelled per Pharmacy. She also is having trouble getting her insulin. Please call today. Patient has been identified by name and birthdate. Duration of symptoms: N/A Person calling: self Call patient at: on cell Was an appointment scheduled: No Closing statement: Results or non-symptom based questions: Thank you for calling [facility], your call will be returned within the next business day. Sadie Guevara Pss [facility]05-09-2025 Telephone encounter Note* Telephone Encounter - Rosa Elena Deluca LPN - 02/09/2025 10:11 AM EDT Pharmacy is only dispensing 2 ml with each fill. [facility]05-09-2025 Miscellaneous Notes* Telephone Encounter - Rosa Elena [...] 08, 2025 11:44 AM documented in this encounterPeoples Hospital05-08-2025 Telephone encounter Note * Telephone Encounter - [...] Yessica Sen February 08, 2025 11:44 AM [facility]05-05-2025 Telephone encounter Note* Telephone Encounter - Ale Boucher LPN - 02/05/2025 2:04 PM EDT Spoke with pt gave information provided. She voices understanding. [place] [address]-05-2025 Miscellaneous Notes* Telephone Encounter - Ale Boucher [...] transferred to triage line with questions on Richmond prescription. Patient asking for prescription to be [...] Thank you. Gayla Hinkle. documented in this encounterPeoples Hospital05-05-2025 Telephone encounter Note * Telephone Encounter - [...] 08, 2025. Authorizing Provider: SARINA ADAMS MD [facility]05-05-2025 Telephone encounter Note* Telephone Encounter - Tracey De Leon RN - 02/05/2025 12:13 PM EDT Patient transferred to triage line with questions on [place] prescription. Patient asking for prescription to be sent to pharmacy and not a paper prescription. Medication is pended as normal for electronic delivery. Tracey De Leon RN [facility]05-05-2025 Telephone encounter Note* Telephone Encounter - Gayla [...] 02/12/2025 Please advise. Thank you. Gayla Hinkle. [facility]04-18-2025 Telephone encounter Note* Telephone Encounter - Vanessa [...] Vanessa Hinkle January 19, 2025 11:26 AM [facility]04-18-2025 Miscellaneous Notes* Telephone Encounter - Vanessa Heredia [...] 19, 2025 11:26 AM documented in this encounterPeoples Hospital04-07-2025 Telephone encounter Note * Telephone Encounter - Denise Alvarado APRN.CNS - 01/08/2025 4:41 PM EDT ok [facility]07[facility] Miscellaneous Notes* Telephone Encounter - Denise Alvarado [...] 08, 2025 11:36 AM documented in this encounterPeoples Hospital04-07-2025 Telephone encounter Note * Telephone Encounter - Denise Alvarado APRN.CNS - 01/08/2025 4:36 PM EDT ok [facility] Miscellaneous Notes* Telephone Encounter - Denise Alvarado [...] 08, 2025 11:51 AM documented in this encounterPeoples Hospital04-07-2025 Telephone encounter Note * Telephone Encounter - [...] Deluca LPN January 08, 2025 11:54 AM [facility]07[facility]25 Miscellaneous Notes* Telephone Encounter - Rosa Elena [...] 08, 2025 11:54 AM documented in this encounterPeoples Hospital04-07-2025 Telephone encounter Note * Telephone Encounter - [...] Deluca LPN January 08, 2025 11:51 AM [facility]07[facility]25 Telephone encounter Note* Telephone Encounter - Rosa [...] LPN January 08, 2025 11:36 AM T [facility]03-24-2025 Telephone encounter Note* Telephone Encounter - Almita [...] Please advise. Thank you. Almita Quinteros. T [facility]03-24-2025 Miscellaneous Notes* Telephone Encounter - Almita Quinteros [...] Thank you. Almita Quinteros. documented in this encounterPeoples Hospital03-14-2025 Telephone encounter Note * Telephone Encounter - Rosa Elena Deluca LPN - 12/15/2024 10:44 AM EDT Our records indicate that there is a current script on file at the [facility] pharmacy. Please contact pharmacy to request a refill. Detailed message left for patient explaining the above. [facility]03-14-2025 Miscellaneous Notes* Telephone Encounter - Rosa Elena Deluca LPN - 12/15/2024 10:44 AM EDT Our records indicate that there is a current script on file at the [facility] pharmacy. Please contact pharmacy to request a [...] 14, 2024 6:17 PM documented in this encounterPeoples Hospital03-13-2025 Telephone encounter Note * Telephone Encounter - [...] Arlene Moses December 14, 2024 6:17 PM [facility]03-13-2025 Progress note* Result Encounter Note - Denise Alvarado APRN.CNS - 12/14/2024 8:17 AM EDT addressed OV [facility]03-13-2025 Miscellaneous Notes* Result Encounter Note - Denise Alvarado APRN.CNS - 12/14/2024 8:17 AM EDT addressed OV documented in this encounterPeoples Hospital03-11-2025 Telephone encounter Note * Telephone Encounter - Chet Webster LPN - 12/12/2024 3:57 PM EDT Called and was unable to leave message, the mailbox is full. Will send information via [employer]. Chet Webster LPN December 12, 2024 3:58 PM [facility]03-11-2025 Miscellaneous Notes* Telephone Encounter - Chet Webster LPN - 12/12/2024 3:57 PM EDT Called and was unable to leave message, the mailbox is full. Will send information via [employer]. Chet Webster LPN December 12, 2024 3:58 PM * Telephone Encounter - Sally Villa MD - 12/11/2024 5:20 PM EDT Please ask patient to follow up with pcp team. She does not have neprotic syndrome but lot of protein leak from sugars not being well controlled Would advice her to improve her sugar control Sally Griffin MD documented in this encounterPeoples Hospital03-10-2025 Telephone encounter Note * Telephone Encounter - Sally Villa MD - 12/11/2024 5:20 PM EDT Please ask patient to follow up with pcp team. She does not have neprotic syndrome but lot of protein leak from sugars not being well controlled Would advice her to improve her sugar control Sally Griffin MD [facility]03-10-2025 Telephone encounter Note* Telephone Encounter - Rosana Ascencio MA - 12/11/2024 11:35 AM EDT Images from the original note were not included. Approved till 12/2025 and patient was notified Rosana Ascencio MA [facility]03-10-2025 Miscellaneous Notes* Telephone Encounter - Rosana Ascencio MA - 12/11/2024 11:35 AM EDT Images from the original note were not included. Approved till 12/2025 and patient was notified Rosana Ascencio MA * Telephone Encounter - Rosana Ascencio MA - 12/11/2024 11:05 AM EDT Prior Authorization has been completed online at [employer] for Almita, will await response. FONTANEZ- BTRJYBHG [...] mL) injection Class: Normal Route: SUBCUTANEOUS Order: [id number] E-Prescribing Status: Receipt confirmed by pharmacy (12/08/2024 2:54 PM EST) Prior authorization: Closed - Other Per Pharmacy, they told patient this medication requires prior authorization, please call insurance. Patient is requesting a follow up call regarding this. Patient has been identified by name and birthdate. Duration of symptoms: N/A Person calling: self Call patient at: on cell [phone] (home) [phone] (cell) Was an appointment scheduled: No Closing statement: Prior Authorization Calls: Thank you for [facility], your call will be returned within the next 24 hours or next business day. Sadie Hinkle documented in this encounterPeoples Hospital03-10-2025 Telephone encounter Note * Telephone Encounter - Rosana Ascencio MA - 12/11/2024 11:05 AM EDT Prior Authorization has been completed online at [employer] for [place], will await response. FONTANEZ- BTRJYBHG Please keep encounter open until final decision has been received and documented from insurance company. Rosana Ascencio MA [facility]03-10-2025 Telephone encounter Note* Telephone Encounter - [place] Sadie Hinkle - 12/11/2024 8:45 AM EDT [...] per day. Please send today. Sadie Guevara [facility] December 11, 2024 8:46 AM [facility]03-10-2025 Miscellaneous Notes* Telephone Encounter - [place] Sadie Hinkle - 12/11/2024 8:45 AM EDT [...] 11, 2024 8:46 AM documented in this encounterPeoples Hospital03-10-2025 Telephone encounter Note * Telephone Encounter - [...] mL) injection Class: Normal Route: SUBCUTANEOUS Order: [id number] E-Prescribing Status: Receipt confirmed by pharmacy (12/08/2024 2:54 PM EST) Prior authorization: Closed - Other Per Pharmacy, they told patient this medication requires prior authorization, please call insurance. Patient is requesting a follow up call regarding this. Patient has been identified by name and birthdate. Duration of symptoms: N/A Person calling: self Call patient at: on cell [phone] (home) [phone] (cell) Was an appointment scheduled: No Closing statement: Prior Authorization Calls: Thank you for calling [facility], your call will be returned within the next 24 hours or next business day. Sadie Hinkle [facility]03-07-2025 NoteHNO ID: [id number] Author: MAYLIN DELANEY LPN Service: ? Author Type: LICENSED NURSE Type: Progress Notes Filed: 12/08/2024 16:42 Note Text: Pt was seen today and DM reviewed.[facility]03-07[facility] History of Present illness Narrative* Maylin [...] with Dr. Villa 11/28/24. documented in this encounterPeoples Hospital03-07-2025 Instructions* Patient Instructions* Denise Alvarado APRN.CNS - 12/08/2024 2:55 PM EST Be sure to take your levothyroxine two 150 mcg daily Check your thyroid levels in 6 weeks at the lab OK to refill the metaxalone (water pill) documented in this encounterPeoples Hospital03-07-2025 History of Present illness Narrative* Denise Alvarado [...] hydrOXYzine HCl (ATARAX) 25 mg tablet Insulin Catarina, Disposable, (DROPLET PEN NEEDLE) 31 gauge x [...] Abs Lymph 1.00 - 4.00 k/uL 1.19 White% % 8.1 Abs White <0.87 k/uL 0.43 Eosin% % 4.5 Abs Eosin <0.46 k/uL 0.24 Baso% % 0.4 Abs Baso <0.11 k/uL <0.03 Immature Gran % % 0.8 IMMATURE GRANS (ABS) <0.10 k/uL 0.04 NRBC /100 WBC 0.0 Absolute nRBC <0.01 k/uL <0.01 DTYPE Auto Color Yellow Yellow Clarity Clear Clear Glucose, Urine Negative 3+ ! Bilirubin, Urine Negative Negative Ketones, Urine Negative Negative Specific [place], Ur 1.005 - 1.030 1.025 Hemoglobin/Blood,Ur Negative [...] Level: 4 - Moderate documented in this encounterPeoples Hospital03-07-2025 NoteHNO ID: [id number] Author: DENISE ALVARADO APRN.ROLF Service: ? Author [...] hydrOXYzine HCl (ATARAX) 25 mg tablet Insulin Catarina, Disposable, (DROPLET PEN NEEDLE) 31 gauge x [...] Mental status is at baseline. Latest Ref [facility] 12/06/2024 WBC 3.70 - 11.00 k/uL 5.33 [...] Abs Lymph 1.00 - 4.00 k/uL 1.19 White% % 8.1 Abs White <0.87 k/uL 0.43 Eosin% % 4.5 Abs Eosin <0.46 k/uL 0.24 Baso% % 0.4 Abs Baso <0.11 k/uL <0.03 Immature Gran % % 0.8 IMMATURE GRANS (ABS) <0.10 k/uL 0.04 NRBC /100 WBC 0.0 Absolute nRBC <0.01 k/uL <0.01 DTYPE Auto Color Yellow Yellow Clarity Clear Clear Glucose, Urine Negative 3+ ! Bilirubin, Urine Negative Negative Ketones, Urine Negative Negative Specific [place], Ur 1.005 - 1.030 1.025 Hemoglobin/Blood,Ur Negative Trace ! pH, Urine <8.5 7.0 Protein, Urine Negative 3+ ! Urobilinogen 0.2-1.0 EU/dL 0.2 EU/dL Nitrites Negative Negative Leukest Negative Negative WBC, Urine 0-5 /HPF 6-10 /HPF ! RBC, Urine 0-2 /HPF 0-2 /HPF Bacteria Negative /HPF Negative Epithelial Cells /HPF None Seen Hyaline Cast 0 /LPF 0 /LP (more content not included)...[facility]03-05-2025 NoteHNO ID: [id number] Author: BROOKE BE PA-C Service: ? Author Type: Physician [place] Polisher Type: Progress Notes Filed: 12/06/2024 14:53 Note [...] 1 tablet by mouth once daily. Insulin Catarina, Disposable, (DROPLET PEN NEEDLE) 31 gauge x [...] night Blood-Glucose Meter mon (more content not included)...[facility] 12-06-2024 History of Present illness Narrative* [...] 1 tablet by mouth once daily. 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 Brooke Be PA-C documented in this encounterPeoples Hospital02-25-2025 NoteHNO ID: [id number] Author: SALLY VILLA MD Service: ? Author Type: Physician Type: Progress Notes Filed: 11/28/2024 18:01 Note Text: Reason for Visit Samantha Romero is a 59 year oldfemale who presents here Patient presents with: ER F/U: [facility] October 2024 Health Maintenance Depression Screening Anxiety [...] hydrOXYzine HCl (ATARAX) 25 mg tablet Insulin Catarina, Disposable, (DROPLET PEN NEEDLE) 31 gauge x [...] (BLOOD PRESSURE CUFF) flash glucose scanning reader (Aris[employer]YLE TYALOR 14 DAY READER) estradiol (ESTRACE) 0.01 % [...] problems, peripheral weakness/paresthesias or (more content not included)...[facility] History of Present illness Narrative* Sally Villa MD - 11/28/2024 4:08 PM EST Reason for Visit Samantha Romero is a 59 year oldfemale who presents here Patient presents with: ER F/U: [facility] October 2024 Health Maintenance Depression Screening Anxiety [...] hydrOXYzine HCl (ATARAX) 25 mg tablet Insulin Catarina, Disposable, (DROPLET PEN NEEDLE) 31 gauge x [...] (BLOOD PRESSURE CUFF) flash glucose scanning reader (eCozySTYLE TAYLOR 14 DAY READER) estradiol (ESTRACE) 0.01 [...] 28, 2024 4:08 PM documented in this encounterPeoples Hospital02-25-2025 NoteHNO ID: [id number] Author: CHET WEBSTER LPN Service: ? Author Type: LICENSED NURSE Type: Progress Notes Filed: 11/28/2024 18:01 Note Text: Asked patient to bring in all medication on next visit to review, patient voiced understanding Chet Webster LPN November 28, 2024 4:08 [facility]02-21-2025 NoteHNO ID: [id number] Author: MAYLIN DELANEY LPN Service: ? Author Type: LICENSED NURSE Type: Progress Notes Filed: 12/08/2024 16:42 Note Text: Pt's last A1c was 10/16/24 9.2. pt did have insurance issues. As in Dr. Adams wasn't in network in Oct 2024. Pt has appt for ER f/u with Dr. Villa 11/28/24.[facility] 11-24-2024 NotePatient Outreach (INTMWS) SAMANTHA ROMERO ([id number]) 1965 F Date Time Provider Department 11/24/24 [...] for 90 days. - flash glucose sensor (eCozySTYLE TAYLOR 14 DAY SENSOR) kit Use to [...] mouth at bedtime as needed. - Insulin Catarina, Disposable, (DROPLET PEN NEEDLE) 31 gauge x [...] directed. Dx: I10 Hypertension (more content not included)...[facility]02-17-2025 Telephone encounter Note* Telephone Encounter - Iraida Zuleta - 11/20/2024 3:56 PM EST Spoke with patient and scheduled with INTM provider as directed. Iraida Zuleta [facility]02-17-2025 Miscellaneous Notes* Telephone Encounter - Iraida Zuleta [...] discharged? David Sanders LPN documented in this encounterPeoples Hospital02-17-2025 Telephone encounter Note * Telephone Encounter - David Sanders LPN - 11/20/2024 3:41 PM EST Pt scheduled for hospital follow up with FM N on 11/28/24. Please assist pt with rescheduling hospital follow up with PCP, member of PCP team or provider in INTM. In addition, please ask what hospital pt was in and when they were discharged? David Sanders LPN [facility]02-03-2025 Telephone encounter Note* Telephone Encounter - Alicja Robin RN - 11/06/2024 12:28 PM EST Called and left a detailed voicemail notifying patient of providers message. Clinic phone number was left in case patient had any questions. Alicja Robin RN [facility]02-03-2025 Miscellaneous Notes* Telephone Encounter - Alicaj Robin RN - 11/06/2024 12:28 PM EST [...] PM EST Contacted by Dr. Harvey at [facility] ED for patient presenting with 2+ [...] week with PCP team. documented in this encounterPeoples Hospital02-01-2025 Telephone encounter Note * Telephone Encounter - [...] 90 days. Authorizing Provider: SARINA ADAMS MD [facility]02-01-2025 Telephone encounter Note* Telephone Encounter - Kerri [...] asking pcp to send norco rx to [facility]. Pended. [facility]01-31-2025 Telephone encounter Note* Telephone Encounter - Sarina [...] it if wants to change to this. [facility]01-30-2025 Telephone encounter Note* Telephone Encounter - Mara Degroot LPN - 11/02/2024 4:08 PM EST Patient was scheduled to be seen here for an appointment on Wednesday but we were unable to see her due to insurance. Encounter routed to PSS to see if insurance has been worked out and if so have them schedule an appointment PCP team for hospital f/u. [facility]01-24-2025 Telephone encounter Note* Telephone Encounter - Tim Mcguire MD - 10/27/2024 8:04 PM EST Contacted by Dr. Harvey at [facility] ED for patient presenting with 2+ [...] early f/u next week with PCP team. [facility] Work Phone: 1(180) 765-814501-22-2025 Telephone encounter Note* Telephone Encounter - Alicja Robin RN - 10/25/2024 11:39 AM EST Called and left a detailed voicemail notifying patient of providers message. Clinic phone number was left in case patient had any questions. Alicja Robin RN [facility]01-22-2025 Miscellaneous Notes* Telephone Encounter - Alicja Robin [...] review. Kristen Bronson LPN documented in this encounterPeoples Hospital01-21-2025 Telephone encounter Note * Telephone Encounter - Denise Alvarado APRN.ROLF - 10/24/2024 11:50 AM EST Is this documenting referral to cardiology to follow up regarding recommendations? If not I recommend that. BNP10/16/2024 was within normal limits. Cardiology to NOT increase lasix at this time per communication today. [facility]01-21-2025 Telephone encounter Note* Telephone Encounter - Loulou Robbins LPN - 10/24/2024 11:40 AM EST Patient is question on if she should increase lasix. Per Dr. Melendez note Lower extremity edema unaffected by Lasix could represent right heart failure. Will check a BNP. If elevated we will consider increasing her Lasix dose . Please provided results and course of action. Loulou Robbins LPN [facility] Work Phone: 1(690) 160-657901-21-2025 Telephone encounter Note* Telephone Encounter - Kristen [...] tp Provider/team to review. Kristen Bronson LPN [facility]01-16-2025 Telephone encounter Note* Telephone Encounter - Corina [...] Prescriptions Disp Refills flash glucose sensor (FREESTYLE ATYLOR 14 DAY SENSOR) kit 2 Kit 5 Sig: Use to check blood sugar 4 times daily. Please give 2 sensors per refill Corina Hinkle October 19, 2024 2:13 PM [facility]01-16-2025 Miscellaneous Notes* Telephone Encounter - Corina Pacheco [...] 19, 2024 2:13 PM documented in this encounterPeoples Hospital01-14-2025 NotePatient Outreach (INTMWS) SAMANTHA ROMERO ([id number]) 1965 F Date Time Provider Department 10/17/24 [...] breast cancer [Z12.31] Order(s):DIANNA SCREENING Sebastián SANAM [[id number]] Order #: [id number] FUTURE Prescriptions as of 11/17/2024 - levothyroxine [...] mouth at bedtime as needed. - Insulin Catarina, Disposable, (DROPLET PEN NEEDLE) 31 gauge x [...] eye exam (HCC) [ (more content not included)...[facility]01-13-2025 Instructions* Patient Instructions* Ramesh Brewster MD - 10/16/2024 2:26 PM EST We will get blood work today documented in this encounterPeoples Hospital01-13-2025 History of Present illness Narrative* Ramesh Brewster MD - 10/16/2024 2:00 PM EST Images from the original note were not included. [facility]IOLOGY Cardiology ([facility]) [address] [address] OUTPATIENT VISIT DATE 10/16/2024 PRIMARY CARE PHYSICIAN: Sarina Adams [address] [place] [address] REFERRING PHYSICIAN: Dr. Adams HISTORY OF PRESENT [...] by mouth at bedtime as needed. Insulin Catarina, Disposable, (DROPLET PEN NEEDLE) 31 gauge x [...] effusion, hypertension, dyslipidemia, insulin requiring diabetes, prior 72-nddu-vxhe smoking history (quit 2016), chronic hypoxic respiratory [...] BNP Ramesh Brewster MD documented in this encounterPeoples Hospital01-13-2025 NoteHNO ID: [id number] Author: RAMESH BREWSTER MD Service: ? Author Type: Physician Type: Progress Notes Filed: 10/16/2024 15:19 Note Text: [facility] Cardiology ([facility]) [address] [id number] OUTPATIENT VISIT DATE 10/16/2024 PRIMARY CARE PHYSICIAN: Sarina Adams [address] [place] [address] REFERRING PHYSICIAN: Dr. Adams HISTORY OF PRESENT [...] mouth once daily. rosuvastati (more content not included)...[facility]01-08-2025 Telephone encounter Note* Telephone Encounter - [...] cuff injury Authorizing Provider: SARINA ADAMS MD [facility]01-08-2025 Miscellaneous Notes* Telephone Encounter - Sarina Adams [...] 09, 2024 12:59 PM documented in this encounterPeoples Hospital01-08-2025 Telephone encounter Note * Telephone Encounter - Tabatha Up LPN - 10/11/2024 5:03 PM EST Printed encounter for Provider to address. Tabatha Up LPN [facility]01-06-2025 Telephone encounter Note* Telephone Encounter - Katherin [...] Katherin Lagos October 09, 2024 12:59 PM [facility]12-11-2024 Telephone encounter Note* Telephone Encounter - Mayte [...] 09/19/2024 Please advise. Thank you. Mayte Vinson. [facility]12-11-2024 Miscellaneous Notes* Telephone Encounter - Mayte Vinson [...] Thank you. Mayte Vinson. documented in this encounterPeoples Hospital12-09-2024 Telephone encounter Note * Telephone Encounter - Denise Alvarado APRN.CNS - 09/11/2024 5:06 PM EST ok [facility]12-09-2024 Miscellaneous Notes* Telephone Encounter - Denise Alvarado [...] 08, 2024 9:03 AM documented in this encounterPeoples Hospital12-09-2024 Telephone encounter Note * Telephone Encounter - Katherin Chowdhury - 09/11/2024 2:48 PM EST Patient is calling to advise she is completely out of this medication, can this please be sent to the pharmacy today? Krista Alas [facility]12-06-2024 Telephone encounter Note* Telephone Encounter - Sophie [...] Sophie Wolfe September 08, 2024 9:03 AM [facility]11-19-2024 Telephone encounter Note* Telephone Encounter - Maylin Delaney LPN - 08/22/2024 8:35 AM EST REC'D COMPLETED AND FAXED BACK. [facility]11-19-2024 Miscellaneous Notes* Telephone Encounter - Maylin Delaney LPN - 08/22/2024 8:35 AM EST REC'D COMPLETED AND FAXED BACK. * Telephone Encounter - Katherin Chowdhury - 08/21/2024 2:43 PM EST Samantha is calling Sarina Adams MD today to request an order be placed for [facility] urology for the following: Adult diapers (pull up) large Large pads Per patient these ship to patient house Patient has been identified by name and birthdate. Duration of symptoms: ongoing Person calling: self Call patient at: at home [phone] (home) [phone] (cell) Was an appointment scheduled: No Closing statement: Results or non-symptom based questions: Thank you for calling [facility], your call will be returned within the next business day. Katherin Lagos documented in this encounterPeoples Hospital11-18-2024 Telephone encounter Note * Telephone Encounter - Katherin Chowdhury - 08/21/2024 2:43 PM EST Samantha is calling Sarina Adams MD today to request an order be placed for [facility] urology for the following: Adult diapers (pull up) large Large pads Per patient these ship to patient house Patient has been identified by name and birthdate. Duration of symptoms: ongoing Person calling: self Call patient at: at home [phone] (home) [phone] (cell) Was an appointment scheduled: No Closing statement: Results or non-symptom based questions: Thank you for calling [facility], your call will be returned within the next business day. Katherin Lagos [facility]11-08-2024 Telephone encounter Note* Telephone Encounter - Cole Bower APRN.CNP - 08/11/2024 11:16 AM EST PDMP website checked and validated. All prescriptions have been APPROPRIATELY filled. No suspiciousactivity was identified. 08/11/2024 by Cole Bwoer APRN.CNP [facility]11-08-2024 Miscellaneous Notes* Telephone Encounter - Cole Bower [...] 11, 2024 8:58 AM documented in this encounterPeoples Hospital11-08-2024 Telephone encounter Note * Telephone Encounter - [...] Corina Hinkle August 11, 2024 8:58 AM [facility]10-29-2024 Telephone encounter Note* Telephone Encounter - Rosa Elena Deluca LPN - 08/01/2024 10:57 AM EDT Home care Certification Form 485 received from [facility]. For cert dates 05/11/24-07/09/24 that were signed on 06/20/24. New Certification Patient's home health 485 form / care plan for stated certification period reviewed and signed. Relevant medical records were reviewed. No changes were indicated [facility]10-29-2024 Miscellaneous Notes* Telephone Encounter - Rosa Elena Deluca LPN - 08/01/2024 10:57 AM EDT Home care Certification Form 485 received from [facility]. For cert dates 05/11/24-07/09/24 that were signed on 06/20/24. New Certification Patient's home health 485 form / care plan for stated certification period reviewed and signed. Relevant medical records were reviewed. No changes were indicated documented in this encounterPeoples Hospital10-21-2024 Telephone encounter Note * Telephone Encounter - Cole Bower APRN.CNP - 07/24/2024 7:30 AM EDT Joe, dilma, bp has been controlled in the office so we will monitor. [facility]10-21-2024 Miscellaneous Notes* Telephone Encounter - Cole Bower APRN.CNP - 07/24/2024 7:30 AM EDT Joe, noted, bp has been controlled in the office so we will monitor. * Telephone Encounter - Alicja Robin RN - 07/22/2024 11:02 AM EDT Called and talked with [place], and she reports her BP machine needs new batteries. Pt states she wouldn't be able to get new batteries until the of the month. [facility] but she remembers her last BP reading being 140s/?. Pt was told once she gets new batteriesfor her BP machine to write down her readings. Called and left a detailed voicemail notifying Libra from [facility] of providers message. Clinic phone number was left for her to call us back and answer provider question. Alicja Robin RN * Telephone Encounter - Rosa Elena Deluca LPN - 07/12/2024 1:37 PM EDT Left a message for both Libra and Samantha to call office with updated reading. * Telephone Encounter - Cole Bower APRN.MANAGER APPOINTMENT - 07/12/2024 1:25 PM EDT Can we get an update on most recent blood pressure either from [facility] or patient? Thanks * Telephone Encounter - Iraida Pena RN - 07/07/2024 3:58 PM EDT Marielle from [facility] calls with an out of parameters blood pressure of 167/91; pulse 95 O2 97. Patient was asymptomatic with no complaints. Please review and advise, Iraida Pena RN documented in this encounterPeoples Hospital10-19-2024 Telephone encounter Note * Telephone Encounter - Alicja Robin RN - 07/22/2024 11:02 AM EDT Called and talked with Samantha, and she reports her BP machine needs new batteries. Pt states she wouldn't be able to get new batteries until the 1st of the month. [facility] but she remembers her last BP reading being 140s/?. Pt was told once she gets new batteriesfor her BP machine to write down her readings. Called and left a detailed voicemail notifying Libra from [facility] of providers message. Clinic phone number was left for her to call us back and answer provider question. Alicja Robin RN [facility]10-16-2024 Telephone encounter Note* Telephone Encounter - Nadine [...] Please advise. Thank you. Nadine Olson LPN. [facility]10-16-2024 Miscellaneous Notes* Telephone Encounter - Nadine Ann [...] you. Nadine Olson LPN. documented in this encounterPeoples Hospital10-14-2024 Telephone encounter Note * Telephone Encounter - [...] Carmina Sylvester PharmD, JAVIER Primary Care Clinical Heel Seat Fitter [facility] Work Phone: 1(122) 383-620910-14-2024 Miscellaneous Notes* Telephone Encounter - Carmina Sylvester RP - 07/17/2024 11:59 AM EDT Called patient for scheduled pharmacy phone follow up; unable to reach after multiple attempts. Left VM with phone number to reschedule appointment. This is the 3rd no show in a row. If patient returns call, visit will be rescheduled at that time. Carmina Sylvester PharmD, JAVIER Primary Care Clinical Heel Seat Fitter documented in this encounterPeoples Hospital10-09-2024 Telephone encounter Note * Telephone Encounter - Cole Bower APRN.CNP - 07/12/2024 4:27 PM EDT PDMP website checked and validated. All prescriptions have been APPROPRIATELY filled. No suspiciousactivity was identified. 07/12/2024 by Cole Bower APRN.CNP [facility]10-09-2024 Miscellaneous Notes* Telephone Encounter - Cole Bower APRN.CNP - 07/12/2024 4:27 PM EDT PDMP website checked and validated. All prescriptions have been APPROPRIATELY filled. No suspiciousactivity was identified. 07/12/2024 by Cole Bower APRN.MANAGER APPOINTMENT * Telephone Encounter - Rosa Elena Deluca [...] PM EDT Patient called to refill her [place] rx; not on current med list. Uses [facility] in [place]. documented in this encounterPeoples Hospital10-09-2024 Telephone encounter Note * Telephone Encounter - [...] Deluca LPN July 12, 2024 3:57 PM [facility]10-09-2024 Telephone encounter Note* Telephone Encounter - Nadine Dozier - 07/12/2024 3:23 PM EDT Patient called to refill her [place] rx; not on current med list. Uses [facility] in [place]. [facility]10-09-2024 Telephone encounter Note* Telephone Encounter - Rosa Elena Deluca LPN - 07/12/2024 1:37 PM EDT Left a message for both Libra and Samantha to call office with updated reading. [facility]10-09-2024 Telephone encounter Note* Telephone Encounter - Cole Bower APRN.CNP - 07/12/2024 1:25 PM EDT Can we get an update on most recent blood pressure either from [facility] or patient? Thanks [facility]10-07-2024 Telephone encounter Note* Telephone Encounter - Carmina Sylvester RPh - 07/10/2024 11:18 AM EDT Patient will need to reschedule phone appointment, as the rest of my schedule is full for today. Next available appointment this week would be Wednesday afternoon (see [facility] schedule) Carmina Sylvester PharmD, BCACP Primary Care Clinical Heel Seat Fitter [facility] Work Phone: 1(574) 495-708310-07-2024 Miscellaneous Notes* Telephone Encounter - Carmina Sylvester RPh - 07/10/2024 11:18 AM EDT Patient will need to reschedule phone appointment, as the rest of my schedule is full for today. Next available appointment this week would be Wednesday afternoon (see [facility] schedule) Carmina Sylvester PharmD, BCACP Primary Care Clinical Heel Seat Fitter * Telephone Encounter - Ruby Coffman LPN - 07/10/2024 10:46 AM EDT Patient stated that she thinks she missed her appointment today with pharmacist. PATIENT stated that she was with the home occupational therapist and she also did not recognize phone number. Please review and advise what you want patient to do? Ruby Coffman LPN documented in this encounterPeoples Hospital10-07-2024 Telephone encounter Note * Telephone Encounter - Ruby Coffman LPN - 07/10/2024 10:46 AM EDT Patient stated that she thinks she missed her appointment today with pharmacist. PATIENT stated that she was with the home occupational therapist and she also did not recognize phone number. Please review and advise what you want patient to do? Ruby Coffman LPN [facility]10-07-2024 Telephone encounter Note* Telephone Encounter - Carmina Sylvester RPh - 07/10/2024 10:13 AM EDT Called patient for scheduled pharmacy phone follow up; unable to reach after multiple attempts. Left VM with phone number to reschedule appointment. Carmina Sylvester PharmD, JAVIER Primary Care Clinical Heel Seat Fitter [facility] Work Phone: [phone]) 707-834010-07-2024 Miscellaneous Notes* Telephone Encounter - Carmina Sylvester RPh - 07/10/2024 10:13 AM EDT Called patient for scheduled pharmacy phone follow up; unable to reach after multiple attempts. Left VM with phone number to reschedule appointment. Carmina Sylvester PharmD, JAVIER Primary Care Clinical Heel Seat Fitter documented in this encounterPeoples Hospital10-04-2024 Telephone encounter Note * Telephone Encounter - Iraida Pena RN - 07/07/2024 3:58 PM EDT Marielle from [facility] calls with an out of parameters blood pressure of 167/91; pulse 95 O2 97. Patient was asymptomatic with no complaints. Please review and advise, Iraida Pena RN [facility]10-04-2024 Telephone encounter Note* Telephone Encounter - Carmina Sylvester RPh - 07/07/2024 10:39 AM EDT Called patient for scheduled pharmacy phone follow up; unable to reach after multiple attempts. Left VM with phone number to reschedule appointment. Will send patient MC message as well. Carmina Sylvester PharmD, JAVIER Primary Care Clinical Heel Seat Fitter [facility] Work Phone: 1([phone]) 229-105510-04-2024 Miscellaneous Notes* Telephone Encounter - Carmina Sylvester RPh - 07/07/2024 10:39 AM EDT Called patient for scheduled pharmacy phone follow up; unable to reach after multiple attempts. Left with phone number to reschedule appointment. Will send patient MC message as well. Carmina Sylvester, PharmD, BCACP Primary Care Clinical Heel Seat Fitter documented in this encounterPeoples Hospital10-02-2024 Telephone encounter Note * Telephone Encounter - Kerri Abdi RN - 07/05/2024 11:45 AM EDT [facility] HH- reporting updated POC: reports insurance approved 3 more visits. Will see patient1 time this week, and 2 times next week. No call back needed. [facility]10-02-2024 Miscellaneous Notes* Telephone Encounter - Kerri Abdi RN - 07/05/2024 11:45 AM [facility] reports insurance approved 3 more visits. Will see patient1 time this week, and 2 times next week. No call back needed. documented in this encounterPeoples Hospital09-30-2024 Telephone encounter Note * Telephone Encounter - [...] for treatment. Kellen can be contacted at [phone] and a voicemail can be left as it is secure. Ina Loera LPN [facility]09-30-2024 Miscellaneous Notes* Telephone Encounter - Ina Loera [...] for treatment. Kellen can be contacted at [phone] and a voicemail can be left as it is secure. Ina Loera LPN documented in this encounterPeoples Hospital09-24-2024 Telephone encounter Note * Telephone Encounter - Denise Alvarado APRN.CNS - 06/27/2024 9:02 AM EDT noted, has appt scheduled [facility]09-24-2024 Miscellaneous Notes* Telephone Encounter - Denise Alvarado [...] is full. * Telephone Encounter - AlvaradoDenise APRN.FELLING MACHINE OPERATOR - 06/26/2024 8:12 AM EDT Check to [...] Lymph 1.00 - 4.00 k/uL 0.84 (L) White% % 6.1 Abs White <0.87 k/uL 0.29 Eosin% % 5.0 Abs [...] (L) Low (H) High documented in this encounterPeoples Hospital09-24-2024 Telephone encounter Note * Telephone Encounter - Mara Degroot LPN - 06/27/2024 8:48 AM EDT Patient notified of providers message and verbalized understanding. Patient states that she has been taking the furosemide 40 mg as needed for the swelling but has been taking nearly everyday recently. Patient made an appointment and will do labs prior to appointment [facility]09-23-2024 Telephone encounter Note* Telephone Encounter - Mara Degroot LPN - 06/26/2024 3:12 PM EDT No answer and voice mailbox is full. [facility]09-23-2024 History of Present illness Narrative* Josy Del [...] PATIENT PRESENTS WITH AN IMPLANTABLE OR ATTACHED CHURCH HISTORY PROFESSOR: No RADIOLOGY DEPARTMENT: General X-ray: Exam(s) Completed: Upper Extremity X- Ray(s): Shoulder, AP / TRUE AP left PERIPHERAL IV DATA: Not applicable SIGNED BY: RT Lucas(R) June 26, 2024 3:23 PM documented in this encounterPeoples Hospital09-23-2024 History of Present illness Narrative* Klaus Hernandez MD - 06/26/2024 2:31 PM EDT Klaus Hernandez MD Department of Orthopaedics Orthopaedics [address] [facility] [address] Dept: [phone] Dept June 26, 2024 CHIEF COMPLAINT: New and Pain of the Left Shoulder and Referred by Cole Bower HPI Patient here for evaluation left shoulder pain. Patient states on 06/02 she lost her balance and fell landing on her left side. Seen at [facility] ED after her fall and admitted [...] by mouth at bedtime as needed. Insulin Catarina, Disposable, (DROPLET PEN NEEDLE) 31 gauge x [...] physician via US mail. Cole Bower [address] [address] Sarina Adams MD [address] [address] Klaus Hernandez MD documented in this encounterPeoples Hospital09-23-2024 Telephone encounter Note * Telephone Encounter - Denise Alvarado APRN.FELLING MACHINE OPERATOR - 06/26/2024 8:12 AM EDT Check to see how often she is taking furosemide 40 mg. BUN is elevated, Creatinine trending downward. Needs to taking in 64 ounces of fluid daily to help kidney function normalize. Verify taking DM medications as ordered. Glucose trending upward. Schedule 3 mo follow up Sarina Adams MD or tn for recheck of kidney function and DM. [...] Lymph 1.00 - 4.00 k/uL 0.84 (L) White% % 6.1 Abs White <0.87 k/uL 0.29 Eosin% % 5.0 Abs [...] 1.4 1.0 Legend: (L) Low (H) High [facility]09-17-2024 Telephone encounter Note* Telephone Encounter - Gavi Tolliver MA - 06/20/2024 10:09 AM EDT The patient has been scheduled. [facility]09-17-2024 Miscellaneous Notes* Telephone Encounter - Gavi Tolliver [...] I asked if she could come to [place] for a visit. * Telephone Encounter - Cole Bower APRN.MANAGER APPOINTMENT - 06/19/2024 7:13 AM EDT Recent repeat xray with the impression of: Impacted LEFT proximal humerus fracture. Currently patient is in a sling, no casting. Original xray was done in [facility] ER. She is also doing PT/OT at home. Do you want that held until seen with ortho? She is not scheduled with ortho until 08/14, does she needin sooner or can she be seen sooner? Thanks, Cole Bower APRN.MANAGER APPOINTMENT documented in this encounterPeoples Hospital09-[facility]24 Telephone encounter Note * Telephone Encounter - Gavi Tolliver MA - 06/20/2024 8:32 AM EDT Attempted to reach the patient. I left another message for the patient to contact the office. [facility] Tele[facility] Note* Telephone Encounter - Yulissa Dawson RN - 06/19/2024 2:31 PM EDT Tried pt again to schedule sooner appt- Left another VM to return my call. [facility] Telephone encounter Note* Telephone Encounter - Yulissa Dawson RN - 06/19/2024 10:53 AM EDT Left VM to try to get pt scheduled sooner. If I don't hear back from her I will call again. I asked if she could come to [place] for a visit. [facility] Telephone encounter Note* Telephone Encounter - Cole Bower APRN.KENDAL - 06/19/2024 7:13 AM EDT Recent repeat xray with the impression of: Impacted LEFT proximal humerus fracture. Currently patient is in a sling, no casting. Original xray was done in [facility] ER. She is also doing PT/OT at home. Do you want that held until seen with ortho? She is not scheduled with ortho until 08/14, does she needin sooner or can she be seen sooner? Thanks, Cole Bower APRN.KENDAL [facility]09[facility]13[facility] Telephone encounter Note* Telephone Encounter - Mayiln Delaney LPN - 06/16/2024 4:23 PM EDT Fax rec'd from [employer]. Approval for hydrocodone/acetaminophen from 06/16/24 to 09/13/24. [facility] Miscellaneous Notes* Telephone Encounter - Maylin Delaney LPN - 06/16/2024 4:23 PM EDT Fax rec'd from [employer]. Approval for hydrocodone/acetaminophen from 06/16/24 to 09/13/24. * Telephone Encounter - Maylin Delaney LPN - 06/16/2024 2:47 PM EDT Called [facility]. They reviewed PA faxed 06/14/24 and responded 06/15/24. The area representative will callthe pharmacy and walk them through the coverage steps. She says she will call back here with an up date too. You may transfer the [facility] area representative to me. * Telephone Encounter - Tracey De Leon RN - 06/16/2024 2:21 PM EDT Prior Authorization Documentation Patient calls to request: Prior authorization requested for the following medication: Medication: hydrocodone-acetaminophen Provider: [employer] Name: [employer] Company Phone number: Patient ID [facility]: [id number] [facility] RXBIN: [id number] RXPCN: [id number] Pharmacy Name: [facility] Telephone number: [phone] Tracey De Leon RN documented in this encounterPeoples Hospital09-13-2024 Telephone encounter Note * Telephone Encounter - Maylin Delaney LPN - 06/16/2024 2:47 PM EDT Called [facility]. They reviewed PA faxed 06/14/24 and responded 06/15/24. The area representative will callthe pharmacy and walk them through the coverage steps. She says she will call back here with an up date too. You may transfer the [facility] area representative to me. [facility] Telephone encounter Note* Telephone Encounter - Tracey De Leon RN - 06/16/2024 2:21 PM EDT Prior Authorization Documentation Patient calls to request: Prior authorization requested for the following medication: Medication: hydrocodone-acetaminophen Provider: [employer] Name: [employer] Company Phone number: Patient ID number: [id number] [facility] RX Benefit RXBIN: [id number] RXPCN: [id number] Pharmacy Name: [facility] Telephone number: [phone] Tracey De Leon, RN [facility] Telephone encounter Note* Telephone Encounter - Maylin Delaney LPN - 06/15/2024 11:01 AM EDT Fax rec'd from [facility] saying no PA is needed. This fax was forwarded on to the pharmacy. [facility] Miscellaneous Notes* Telephone Encounter - Maylin Delaney [...] request Electronic prior authorization not required for [facility]. If requesting a quantity above allowable limits, please submit via other method. Will complete paper PA for opioid form. Form completed and faxed to [facility]. documented in this encounterPeoples Hospital09-11-2024 History of Present illness Narrative* Randi Horn, [...] PATIENT PRESENTS WITH AN IMPLANTABLE OR ATTACHED CHURCH HISTORY PROFESSOR: Yes [facility] DEPARTMENT: General X-ray: Exam(s) Completed: Upper Extremity X- Ray(s): Shoulder, AP / TRUE AP left PERIPHERAL IV DATA: Not applicable SIGNED BY: RT Manny(R) June 14, 2024 2:19 PM documented in this encounterPeoples Hospital09-11-2024 Telephone encounter Note * Telephone Encounter - Maylin Delaney LPN - 06/14/2024 2:23 PM EDT Tried to complete PA for hydrocodone acetaminophen 5-325. Unable to complete electronically. Tried via covermymeds and this is the PA response. Information regarding your request Electronic prior authorization not required for [facility]. If requesting a quantity above allowable limits, please submit via other method. Will complete paper PA for opioid form. [facility] History of Present illness Narrative* Cole Bower APRN.MANAGER APPOINTMENT - 06/14/2024 1:36 PM EDT SUBJECTIVE Samantha [...] been doing home PT/OT and having nursing. [place] for left shoulder pain and chronic back [...] Please give 2 sensors per refill Insulin Catarina, Disposable, (DROPLET PEN NEEDLE) 31 gauge x [...] Dx: I10 Hypertension flash glucose scanning reader (eCozySTYLE TAYLOR 14 DAY READER) Use to check [...] - 10/19/2022 Comment: Intermittent reflux Myasthenia Gravis ([facility]) - 07/30/2022 Type 2 Diabetes Mellitus With Diabetic Neuropathy, With Long-Term Current Use of Insulin ([facility]) - 07/30/2022 Bilateral Leg Edema - 07/30/2022 Comment: worse on left Dysuria - 07/30/2022 Comment: Follow up with gynecology 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 Chronic Hypoxemic Respiratory Failure ([facility]) - 12/09/2021 Pneumonia Due to Covid-19 Virus - 08/05/2021 Status Post Cataract Extraction and Insertion of Intraocular Lens of Right Eye - 06/03/2021 Combined 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 [place] 4 times daily as needed still okay. Try and get ortho appointment sooner. - XR SHOULDER LIMITED 2V AP/TRUE AP LEFT 2. Chronic midline low back pain, unspecified whether sciatica present - ICD9: 724.2, 338.29, ICD10: M54.50, G89.29 [place] PRN. 3. Chronic SI joint pain - [...] medications.. Cole Bower APRN-KENDAL documented in this encounterPeoples Hospital09-10-2024 Telephone encounter Note * Telephone Encounter - Cole Bower APRN.CNP - 06/13/2024 3:07 PM EDT Noted, agree [facility] Miscellaneous Notes* Telephone Encounter - Cole Bower APRN.CNP - 06/13/2024 3:07 PM EDT Noted, agree * Telephone Encounter - Nida Hamilton LPN - 06/13/2024 2:51 PM EDT Kellen from [facility] Home Health calling did patient re-eval today patient needs more time with her arm and OT plan of care will be 2 visits weekly for 3 weeks. No need for return call. documented in this encounterPeoples Hospital09-10-2024 Telephone encounter Note * Telephone Encounter - Nida Hamilton LPN - 06/13/2024 2:51 PM EDT Kellen from [facility] Home [facility] calling did patient re-eval today patient needs more time with her arm and OT plan of care will be 2 visits weekly for 3 weeks. No need for return call. [facility] Telephone encounter Note* Telephone Encounter - Tracey De Leon RN - 06/13/2024 12:38 PM EDT Call placed to [facility] and notified. Tracey De Leon RN [facility] Miscellaneous Notes* Telephone Encounter - Tracey De Leon RN - 06/13/2024 12:38 PM EDT Call placed to [facility] and notified. Tracey De Leon RN * [...] 06/13/2024 12:07 PM EDT Chiara nurse with [facility] calls to clarify the hydrochlorothiazide order. [...] Please clarify. Chiara's call back number is [phone]. Tracey De Leon RN documented in this encounterPeoples Hospital09-10-2024 Telephone encounter Note * Telephone Encounter - Cole Bower APRN.CNP - 06/13/2024 12:29 PM EDT Please return call and let them know she is coming in tomorrow, I will need to see her first to determine if this is still needed or should be discontinued. We will clarify the med with visit tomorrow. [facility] Telephone encounter Note* Telephone Encounter - Tracey De Leon RN - 06/13/2024 12:07 PM EDT Chiara nurse with [facility] HH calls to clarify the hydrochlorothiazide [...] Please clarify. Chiara's call back number is [phone]. Tracey De Leon RN [facility] Telephone encounter Note* Telephone Encounter - Rosa Elena Deluca LPN - 06/13/2024 8:20 AM EDT Scripts faxed to [facility]. [facility] Miscellaneous Notes* Telephone Encounter - Rosa Elena Deluca LPN - 06/13/2024 8:20 AM EDT Scripts faxed to [facility]. * Telephone Encounter - Alicja Robin RN - 06/12/2024 4:53 PM EDT Pt called and is notified of providers message. Pt voices understanding. Pt would like order sent to [facility]. Alicja Robin RN * Telephone Encounter - Cole Bower APRN.KENDAL - 06/12/2024 4:43 PM EDT I am definitely okay with starting the process prior to seeing her. I wrote the scripts. See if shewants this sent to [facility]? * Telephone Encounter - Alicja Robin RN - 06/12/2024 3:57 PM EDT Pt called in and reports Franklyn told her that provider needs to send in Rx for bars for bathtuband a bed side commode for her. Pt reports she was in [facility] for a fall and tore her rotator cuff on 06/02/24. She had hospital f/u appt with Denise Alvarado HOSPICE CARE SALES CONSULTANT on 06/08/24 and will be seeing Cole [...] 12, 2024 4:13 PM documented in this encounterPeoples Hospital09-09-2024 Telephone encounter Note * Telephone Encounter - Alicja Robin RN - 06/12/2024 4:53 PM EDT Pt called and is notified of providers message. Pt voices understanding. Pt would like order sent to [facility]. Alicja Robin RN [facility] Telephone encounter Note* Telephone Encounter - Cole Bower APRN.KENDAL - 06/12/2024 4:43 PM EDT I am definitely okay with starting the process prior to seeing her. I wrote the scripts. See if [facility] Telephone encounter Note* Telephone Encounter - Mayte Vinson - 06/12/2024 4:10 PM EDT Pharmacy told patient insurance will not cover this prescription-that they need authorization to gofrom 3 to 4. Patient does not understand issue as Rx shows new directions. Please advise. [phone] [facility] Miscellaneous Notes* Telephone Encounter - Mayte Vinson - 06/12/2024 4:10 PM EDT Pharmacy told patient insurance will not cover this prescription-that they need authorization to gofrom 3 to 4. Patient does not understand issue as Rx shows new directions. Please advise. [phone] * Telephone Encounter - Alicja Robin RN [...] 12, 2024 11:41 AM documented in this encounterPeoples Hospital09-09-2024 Telephone encounter Note * Telephone Encounter - Alicja Robin RN - 06/12/2024 3:57 PM EDT Pt called in and reports [facility] told her that provider needs to send in Rx for bars for bathtuband a bed side commode for her. Pt reports she was in [facility] for a fall and tore her rotator cuff on 06/02/24. She had hospital f/u appt with Denise Alvarado HOSPICE CARE SALES CONSULTANT on 06/08/24 and will be seeing Cole Bower HOSPICE CARE SALES CONSULTANT on 06/14/24 for a f/u.Please let Pt know if you can call prescription in for hospital f/u or if she had to wait for appointment with Cole Bower HOSPICE CARE SALES CONSULTANT. The patient has been identified by name [...] Robin RN June 12, 2024 4:13 PM [facility] Tele[facility] Note* Telephone Encounter - Alicja Robin RN - 06/12/2024 3:57 PM EDT Let Pt know that medication been called in on 06/07/24. [facility] Tele[facility] Note* Telephone Encounter - Rosa Elena Deluca LPN - 06/12/2024 11:59 AM EDT This was just sent to Krista Mendoza on 06/07/24. Attempted to notify patient with no answer and unable to leave a message due to mailbox is full. [facility] Telephone encounter Note* Telephone Encounter - Sophie [...] Sophie Wolfe June 12, 2024 11:41 AM [facility] Telephone encounter Note* Telephone Encounter - Alicja Robin RN - 06/08/2024 4:41 PM EDT Ole RN with [facility] called and asked if Pt was at appointment today for medication management. I let him know she was. Let him know new medications. Faxed Medication list with problems to fax # [phone] and put it in to be delivered to [facility] tomorrow when they make the hand deliveries. [facility] Miscellaneous Notes* Telephone Encounter - Alicja Robin RN - 06/08/2024 4:41 PM EDT Ole RN with [facility] called and asked if Pt was at appointment today for medication management. I let him know she was. Let him know new medications. Faxed Medication list with problems to fax # [phone] and put it in to be delivered to [facility] tomorrow when they make the hand deliveries. documented in this encounterPeoples Hospital2024 Instructions* Patient Instructions* Denise Alvarado APRN.ROLF - [...] 300 mcg daily recently. documented in this encounterPeoples Hospital2024 History of Present illness Narrative* Denise Alvarado [...] ambulance. Reports has home health care with long term and PT. Notes indicate new MRI of [...] nearly resolved. She has appointment scheduled with banking specialist pilot plant operator and orthopedic provider. [facility] home care is coming out to her [...] tablet by mouth daily with breakfast. Insulin Catarina, Disposable, (DROPLET PEN NEEDLE) 31 gauge x [...] Negative Negative Ketones, Urine Negative Negative Specific [place], Ur 1.005 - 1.030 1.028 Hemoglobin/Blood,Ur Negative [...] 600 MG TABLET Advised To check with [facility] provider The medications we have held for [...] to 300 mcg daily recently. Denise Alvarado APRN.FELLING MACHINE OPERATOR Medical Decision Making: Problems: Moderate: 1+ chronic illnesses with change Data: Unique source(s) for external note(s) reviewed: 1 Unique test result(s) reviewed: 3+ Risk: Moderate: Drug management Medical Decision Making Level: 4 - Moderate documented in this encounterPeoples Hospital2024 Telephone encounter Note * Telephone Encounter - Alicja Robin RN - 06/08/2024 8:29 AM EDT Pt called and is notified of providers message and instructions. Pt voices understanding. \Let Pt know to have provider give her 2 updated medication lists one for her and one for Rafat RN with [facility] when he comes to see her next. Called and left a message for COLT Douglass with [facility] letting him know this. Alicja Robin RN [facility] Miscellaneous Notes* Telephone Encounter - Alicja Robin RN - 06/08/2024 8:29 AM EDT Pt called and is notified of providers message and instructions. Pt voices understanding. \Let Pt know to have provider give her 2 updated medication lists one for her and one for Rafat RN with [facility] when he comes to see her next. Called and left a message for COLT Douglass with [facility] letting him know this. Alicja Robin [...] placed to patient and COLT Douglass with [facility] also cotton picking machine operator, as he is visiting patient at this [...] trying to get pt set up with [facility] or [facility] for pill packaging. Please call both HH Nurse Rafat AND patient with any new orders. Rafat: [phone] Thank you. documented in this encounterPeoples Hospital09-04-2024 Telephone encounter Note * Telephone Encounter - Sarina Adams MD - 06/07/2024 7:27 PM EDT Wait for appointment with Denise to clarify medications , especially diuretics. [facility] Telephone encounter Note* Telephone Encounter - Cole Bower APRN.CNP - 06/07/2024 9:33 AM EDT [facility] website checked and validated. All prescriptions have been APPROPRIATELY filled. No suspiciousactivity was identified. 06/07/2024 by Cole Bower APRN.CNP [facility] Miscellaneous Notes* Telephone Encounter - Cole Bower APRN.CNP - 06/07/2024 9:33 AM EDT [facility] checked and validated. All prescriptions have [...] you. Jaylyn Vazquez LPN. documented in this encounterPeoples Hospital09-04-2024 Telephone encounter Note * Telephone Encounter - Tracey De Leon RN - 06/07/2024 8:34 AM EDT See 06/06/2024 TE. Tracey De Leon RN [facility] Miscellaneous Notes* Telephone Encounter - Tracey De Leon RN - 06/07/2024 8:34 AM EDT See 06/06/2024 TE. Tracey De Leon RN * Telephone Encounter - Tabatha Up LPN - 06/02/2024 6:12 PM EDT No answer at number provided to return call to Libra OT with [facility]. Tabatha Up LPN * Telephone Encounter - Denise Alvarado APRN.CNS - 06/02/2024 4:24 PM EDT Note blood pressure elevation without symptoms. Continue to monitor. No changes at this time. See other message regarding Samantha Romero today. * Telephone Encounter - Tracey De Leon RN - 06/02/2024 3:17 PM EDT Libra OT with [facility] calls to let provider know that at OT visit today blood pressure was elevated. At beginning of visit bp was 169/95 and at end of visit 152/95 (outside of their parameters). Libra reports patient denies any symptoms. Tracey De Leon RN documented in this encounterPeoples Hospital09-03-2024 Telephone encounter Note * Telephone Encounter - [...] Please advise. Thank you. Jaylyn Vazquez LPN. [facility] Telephone encounter Note* Telephone Encounter - Vanessa [...] placed to patient and COLT Douglass with [facility] HH also cotton picking machine operator, as he is visiting patient at this [...] pt set up with [facility] or [facility] for pill packaging. Please call both Nurse Rafat AND patient with any new orders. Rafat: [phone] Thank you. [facility] Telephone encounter Note* Telephone Encounter - Vanessa Li RN - 06/06/2024 11:57 AM EDT Will close this encounter. See new encounter 06/06/24, for most current information. Vanessa Li RN [facility]2024 Miscellaneous Notes* Telephone Encounter - Vanessa Li [...] - 05/29/2024 9:36 AM EDT Cori from [facility] calls and notified of below. Patient [...] - 05/26/2024 1:37 PM EDT Parisa- RN- [facility]- reporting patient's weight today- approximately 250# [...] 05-16-24 was 4.0. Phone Cori with reply: [phone] documented in this encounterPeoples Hospital09-01-2024 Telephone encounter Note * Telephone Encounter - Sarina Adams MD - 06/04/2024 9:07 PM EDT Not yet addressed. Make sure addressed Wednesday [facility] Telephone [facility] Note* Telephone Encounter - Tabatha Up LPN - 06/02/2024 6:12 PM EDT No answer at number provided to return call to [facility] OT with [facility]. Tabatha Up LPN [facility] Telephone encounter Note* Telephone Encounter - Denise Alvarado APRN.ROLF - 06/02/2024 4:26 PM EDT Check to see if taking hydrochlorothiazide daily as ordered. If not recommend resuming. If so may need additional diuretic. Is weight increased? Increased shortness of breath? Ordered metabolic panel. Does she need an OV? [facility] Tele[facility] Note* Telephone Encounter - Denise Alvarado APRN.ROLF - 06/02/2024 4:24 PM EDT Note blood pressure elevation without symptoms. Continue to monitor. No changes at this time. See other message regarding Samantha Romero today. [facility] Telephone encounter Note* Telephone Encounter - Tracey De Leon RN - 06/02/2024 3:17 PM EDT Libra OT with [facility] HH calls to let provider know that at OT visit today blood pressure was elevated. At beginning of visit bp was 169/95 and at end of visit 152/95 (outside of their parameters). Libra reports patient denies any symptoms. Tracey De Leon RN [facility] History of Present illness Narrative* Carmina Sylvester [facility] - 06/02/2024 11:00 AM EDT Primary Care Pharmacy Visit CC (Reason for Consult): (E11.9) Type 2 diabetes (HCC) (primary encounter diagnosis) Goal(s): A1c <7% Last Collaborating Provider Visit: 02/11/24 with Cole Bower APRN, MANAGER APPOINTMENT Samantha Romero is a 58 year old [...] daily with breakfast. 90 tablet 3 Insulin Catarina, Disposable, (DROPLET PEN NEEDLE) 31 gauge x [...] 1 Each 0 flash glucose scanning reader (eCozySTYLE TAYLOR 14 DAY READER) Use to check blood sugar 4 times daily 1 Each 0 estradiol (ESTRACE) 0.01 % (0.1 mg/gram) vaginal cream Use 3 g vaginally two times a week. 42.5 g 6 No current facility-administered medications for this visit. Pill bottles are not present. Adherence: denies missed doses. Rx coverage: Payor: [facility] MEDICAID / Plan: [facility] MEDICAID / Product Type: Medicaid / Medications affordable? Yes PHARMACOTHERAPY PREVENTATIVE MEDS: On ENID/ARB: No On Statin: Yes On ASA: No [...] Carmina Sylvester, PharmD, BCACP Primary Care Clinical Heel Seat Fitter documented in this encounterPeoples Hospital08-26-2024 Telephone encounter Note * Telephone Encounter - Iraida Pena RN - 05/29/2024 9:36 AM EDT Parisa from [facility] calls and notified of below. Patient [...] Please review and advise, Iraida Pena RN [facility] Telephone encounter Note* Telephone Encounter - Rosa Elena Deluca LPN - 05/27/2024 10:25 AM EDT Left message for Cori to return call to office. [facility] Telephone encounter Note* Telephone Encounter - Sarina Adams MD - 05/26/2024 7:48 PM EDT Is she having any leg swelling or other signs of fluid retention? Any orders for follow up labs for CMP? [facility] Tele[facility] Note* Telephone Encounter - Kerri Abdi RN - 05/26/2024 1:37 PM EDT Parisa- RN- [facility]- reporting patient's weight today- approximately 250# [...] 05-16-24 was 4.0. Phone Cori with reply: [phone] [facility] Telephone encounter Note* Telephone Encounter - Mara Degroot LPN - 05/25/2024 4:56 PM EDT No answer. Left providers message on secure voicemail and ask to call back with any questions or concerns; [facility] Miscellaneous Notes* Telephone Encounter - Mara Degroot [...] 05/25/2024 3:38 PM EDT Bhumi MULTANI from [facility] HH asking for VO to meet with patient next Wednesday to help her with some resources. Please contact her back with ok. [phone] documented in this encounterPeoples Hospital08-22-2024 Telephone encounter Note * Telephone Encounter - Denise Alvarado APRN.CNS - 05/25/2024 4:28 PM EDT Yes okay for home health care [facility] Telephone encounter Note* Telephone Encounter - Reina Blanco LPN - 05/25/2024 3:38 PM EDT Bhumi MULTANI from [facility] HH asking for VO to meet with patient next Wednesday to help her with some resources. Please contact her back with ok. [phone] [facility]08-[facility]-2024 Telephone encounter Note* Telephone Encounter - Tiny Leon RN - 05/24/2024 6:19 PM EDT Spoke with Belem @ [facility]. Given message from provider's office. She verbalizes understanding. Tiny Leon RN [facility]08-21-2024 Miscellaneous Notes* Telephone Encounter - Tiny Leon RN - 05/24/2024 6:19 PM EDT Spoke with Belem @ [facility]. Given message from provider's office. She [...] - 05/24/2024 2:23 PM EDT Belem from [facility], they did not get the orders [...] Lasix should be taken. [facility] in [facility] encounterPe[facility]08-[facility] Telephone encounter Note * Telephone Encounter - [...] or at least gets back to normal. [facility] Tele[facility] encounter Note* Telephone Encounter - Alena Napier LPN - 05/24/2024 2:23 PM EDT Belem from [facility], they did not get the orders [...] clarify how the Lasix should be taken. [facility] Tele[facility] encounter Note* Telephone Encounter - Iraida Pena RN - 05/24/2024 12:03 PM EDT Carolina calls and notified of below. Voices understanding. [place] asking for provider recommendations to be faxed to [phone]. Faxed as requested. Iraida Pena RN [facility] Miscellaneous Notes* Telephone Encounter - Iraida Pena RN - 05/24/2024 12:03 PM EDT Carolina calls and notified of below. Voices understanding. Carolina asking for provider recommendations to be faxed to [phone]. Faxed as requested. Iraida Pena RN * Telephone Encounter - Tabatha Up LPN - 05/24/2024 9:09 AM EDT Message left on secure BlockScoremail to call office for update. Tabatha Up [...] - 05/23/2024 4:46 PM EDT Carolina from [facility] Home Health calls and states that [...] RN - 05/23/2024 4:26 PM EDT Carolina- [facility] HH- reports patient is having a [...] restart lasix? Please phone Carolina with reply: [phone] documented in this encounterPeoples Hospital08-21-2024 Telephone encounter Note * Telephone Encounter - Tabatha Up LPN - 05/24/2024 9:09 AM EDT Message left on secure voicemail to call office for update. Tabatha Up LPN [facility] Telephone encounter Note* Telephone Encounter - Sraina Adams MD - 05/23/2024 8:29 PM EDT [...] of legs. FU in office if needed. [facility] Tele[facility] Note* Telephone Encounter - Iraida Pena RN - 05/23/2024 4:46 PM EDT Carolina from [facility] Home Health calls and states that patient went and weighed self. Patient is 265 pounds today. Patient was 247 on 05/16/2024 at the hospital. Carolina states that nursing is going out tosee patient tomorrow. Carolina is afraid that patient may have to be admitted into hospital. Please review and advise, Iraida Pena RN [facility] Telephone encounter Note* Telephone Encounter - Kerri Abdi RN - 05/23/2024 4:26 PM EDT [place]- [facility] HH- reports patient is having a [...] restart lasix? Please phone [place] with reply: [phone] [facility] Tele[facility] Note* Telephone Encounter - Rosa Elena Deluca LPN - 05/22/2024 3:56 PM EDT Order has been faxed. [facility] Miscellaneous Notes* Telephone Encounter - Rosa Elena Deluca LPN - 05/22/2024 3:56 PM EDT Order has been faxed. * Telephone Encounter - Cole Bower APRN.CNP - 05/22/2024 12:35 PM EDT Order printed, please fax. Thanks! * Telephone Encounter - Sunita Saez LPN - 05/22/2024 12:29 PM EDT Last OV: 05/16/24 Bhumi with [facility] is calling to request an order for a raised toilet seat with handles to be faxed to [employer]. Fax to: [phone]. Sunita Saez LPN documented in this encounterPeoples Hospital08-19-2024 Telephone encounter Note * Telephone Encounter - Cole Bower APRN.CNP - 05/22/2024 12:35 PM EDT Order printed, please fax. Thanks! [facility] Telephone encounter Note* Telephone Encounter - Sunita Saez LPN - 05/22/2024 12:29 PM EDT Last OV: 8/13/24 Bhumi with [facility] is calling to request an order for a raised toilet seat with handles to be faxed to [facility] [place]. Fax to: [phone]. Sunita Saez LPN [facility] Telephone encounter Note* Telephone Encounter - Denise Alvarado APRN.CNS - 05/18/2024 1:03 PM EDT [facility] Miscellaneous Notes* Telephone Encounter - Denise Alvarado APRN.CNS - 05/18/2024 1:03 PM EDT [facility] * Telephone Encounter - Nida Hamilton LPN - 05/18/2024 12:25 PM EDT Kellen from [facility] calling with OT plan of care, 1 visit weekly for 1 week, then 2 visits weekly for 4 weeks. Working on left arm mobility and ADL's. This was a delay of care she has been booked a lot. No need for return call. documented in this encounterPeoples Hospital08-15-2024 Telephone encounter Note * Telephone Encounter - Nida Hamilton LPN - 05/18/2024 12:25 PM EDT Kellen from [facility] calling with OT plan of care, 1 visit weekly for 1 week, then 2 visits weekly for 4 weeks. Working on left arm mobility and ADL's. This was a delay of care she has been booked a lot. No need for return call. [facility] Procedure note* Aby Mancuso RPFT - 05/16/2024 [...] May 16, 2024 TIME: 3:11 PM Comment: [facility] Procedure note* Aby Mancuos RPFT - 05/16/2024 3:11 PM EDTAssociated Order(s): [...] TIME: 3:11 PM Comment: documented in this encounterPeoples Hospital08-13-2024 History of Present illness Narrative* Aby Mancuso RPFT - 05/16/2024 3:09 PM EDT PULM FUNCTION: Provider: Brooke Be PA-C Assisting Tech: Aby Mancuso RPFT Oximetry - Ambulation: 1 documented in this encounterPeoples Hospital08-13-2024 Instructions* Patient Instructions* Cole Bower APRN.KENDAL - 05/16/2024 1:59 PM EDT Get blood work today. I will send a my chart message with your blood work results. Schedule to see orthopedics for your shoulder. Restart hydrochlorothiazide at 25 mg daily. Ok to increase the Richmond to 4 times daily if needed for short term. See me back in 4 weeks. documented in this encounterPeoples Hospital08-13-2024 History of Present illness Narrative* Cole Bower [...] tablet by mouth daily with breakfast. Insulin Catarina, Disposable, (DROPLET PEN NEEDLE) 31 gauge x [...] - 04/19/2014 (A priority) Diabetic Eye Exam (Formerly [facility]) - 04/05/2014 (A priority) Hyperlipidemia - 04/05/2014 [...] - 10/19/2022 Comment: Intermittent reflux Myasthenia Gravis (Former[facility]) - 07/30/2022 Type 2 Diabetes Mellitus With Diabetic Neuropathy, With Long-Term Current Use of Insulin ([facility]) - 07/30/2022 Bilateral Leg Edema - 07/30/2022 Comment: worse on left Dysuria - 07/30/2022 Comment: Follow up with gynecology 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 Chronic Hypoxemic Respiratory Failure ([facility]) - 12/09/2021 Pneumonia Due to Covid-19 Virus - 08/05/2021 Status Post Cataract Extraction and Insertion of Intraocular Lens of Right Eye - 06/03/2021 Combined Forms of Age-Related Cataract of Left Eye - 05/09/2021 Type 2 Diabetes Mellitus With Moderate Nonproliferative Diabetic Retinopathy With Macular Edema ([facility]) - 05/09/2021 Type 2 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 Cole Bower APRN-KENDAL documented in this encounterPeoples Hospital08-13-2024 Telephone encounter Note * Telephone Encounter - Alicja Robin RN - 05/16/2024 12:22 PM EDT Called and left a detailed voicemail notifying Ole GREGORY CM with [facility] of providers message. Clinic phone number was left in case he had any questions. Alicja Robin RN [facility]08-13[facility] Miscellaneous Notes* Telephone Encounter - Alicja Robin RN - 05/16/2024 12:22 PM EDT Called and left a detailed voicemail notifying Ole GREGORY CM with [facility] of providers message. Clinic phone number was left in case he had any questions. Alicja Robin RN * Telephone Encounter - Denise Alvarado APRN.FELLING MACHINE OPERATOR - 05/16/2024 8:23 AM EDT Okay for home health care plan. Okay to take medications as prescribed at discharge. If tolerating current pain medication may continue unchanged. * Telephone Encounter - Iraida Pena RN - 05/15/2024 1:15 PM EDT Ole calling from [facility] to report plan of care for patient and long term will visit patient 1 time a week for 3 weeks. USP will work with patient on vitals. Patient was recently told to hold diuretics and blood pressure medication until 06/04 while she was in hospital. See Message below regarding medication reconciliation, Iraida Pena RN * Telephone Encounter - Tracey De Leon RN - 05/15/2024 10:07 AM EDT Oel with [facility] calls after doing medication reconcillation with following medication problems. Drug Allergy: Patient prescribed Richmond but has allergy to Oxycodone which is nausea and vomiting. Seems ok on Richmond. Ok to continue? Duplicate medications: Ibuprofen 200 mg and Meloxicam 15 mg Furosemide and hydrochlorothiazide Promethazine and Hydroxyzine. Tracey De Leon RN documented in this encounterPeoples Hospital08-13-2024 Telephone encounter Note * Telephone Encounter - Denise Alvarado APRN.CNS - 05/16/2024 8:23 AM EDT Okay for home health care plan. Okay to take medications as prescribed at discharge. If tolerating current pain medication may continue unchanged. [facility] Telephone encounter Note* Telephone Encounter - Iraida Pena RN - 05/15/2024 1:15 PM EDT Ole calling from [facility] to report plan of care for patient and long term will visit patient 1 time a week for 3 weeks. USP will work with patient on vitals. Patient was recently told to hold diuretics and blood pressure medication until 06/04 while she was in hospital. See Message below regarding medication reconciliation, Iraida Pena RN [facility] Telephone encounter Note* Telephone Encounter - Tracey De Leon RN - 05/15/2024 10:07 AM EDT Ole with [facility] HH calls after doing medication reconcillation with following medication problems. Drug Allergy: Patient prescribed Richmond but has allergy to Oxycodone which is nausea and vomiting. Seems ok on Richmond. Ok to continue? Duplicate medications: Ibuprofen 200 mg and Meloxicam 15 mg Furosemide and hydrochlorothiazide Promethazine and Hydroxyzine. Tracey De Leon RN [facility] Telephone encounter Note* Telephone Encounter - Sarina Adams MD - 05/12/2024 5:58 PM EDT Patient had RX to last from 04/11 to 05/11. Another provider gave her a RX filled 05/09 for 15 pills. Given at discharge from [facility] on 05/04, she filled on 05/09--this [...] 14, 2024. Authorizing Provider: SARINA ADAMS MD [facility] Miscellaneous Notes* Telephone Encounter - Sarina Adams MD - 05/12/2024 5:58 PM EDT Patient had RX to last from 04/11 to 05/11. Another provider gave her a RX filled 05/09 for 15 pills. Given at discharge from [facility] on 05/04, she filled on 05/09--this [...] 12, 2024 1:28 PM documented in this encounterPeoples Hospital08-09-2024 Telephone encounter Note * Telephone Encounter - [...] Pena RN May 12, 2024 1:28 PM [facility] Telephone encounter Note* Telephone Encounter - Nida Hamilton LPN - 05/12/2024 9:06 AM EDT Phoned Senthil and went over notes from Denise Alvarado HOSPICE CARE SALES CONSULTANT with understanding. Printed order, and face sheet, faxed to [phone] as requested. [facility] Miscellaneous Notes* Telephone Encounter - Nida Hamilton LPN - 05/12/2024 9:06 AM EDT Phoned Senth[facility] and went over notes from Denise Alvarado HOSPICE CARE SALES CONSULTANT with understanding. Printed order, and face sheet, faxed to [phone] as requested. * Telephone Encounter - Denise Alvarado APRN.CNS - 05/12/2024 8:55 AM EDT She should be taking 200 mcg levothyroxine daily. Both 150 mcg and 200 mcg are listed on her discharge medication list. She should have had home health care orders at discharge which would have included nursing. Can re-enter , send to [facility] per request. * Telephone Encounter - Iraida Pena RN - 05/11/2024 3:18 PM EDT Senthil PT calling from [facility] to report plan of care for patient and physical therapy will visit patient 2 times a week for 3 weeks. Physical therapy will work with patient on functional mobility. Senthil states that on discharge paper work Levothyroxine states 150 mcg, patient has 200 mcg in house. Senthil asking for an order long term evaluation due to patient being on oxygen, diabetes management, and medication management. Please review and Advise, Iraida Pena RN documented in this encounterPeoples Hospital08-09-2024 Telephone encounter Note * Telephone Encounter - Denise Alvarado APRN.CNS - 05/12/2024 8:55 AM EDT She should be taking 200 mcg levothyroxine daily. Both 150 mcg and 200 mcg are listed on her discharge medication list. She should have had home health care orders at discharge which would have included nursing. Can re-enter , send to [facility] per request. [facility] Telephone encounter Note* Telephone Encounter - Iraida Pena RN - 05/11/2024 3:18 PM EDT Senthil PT calling from [facility] to report plan of care for patient and physical therapy will visit patient 2 times a week for 3 weeks. Physical therapy will work with patient on functional mobility. Senthil states that on discharge paper work Levothyroxine states 150 mcg, patient has 200 mcg in house. Senthil asking for an order long term evaluation due to patient being on oxygen, diabetes management, and medication management. Please review and Advise, Iraida Pena RN [facility]24 Telephone encounter Note* Telephone Encounter - Mara Degroot LPN - 05/09/2024 4:20 PM EDT Attempted to contact Lucero with [facility] but no answer. Left providers message and ask to call office with any questions or concerns. [facility] Miscellaneous Notes* Telephone Encounter - Mara Degroot LPN - 05/09/2024 4:20 PM EDT Attempted to contact Lucero with [facility] but no answer. Left providers message and ask to call office with any questions or concerns. * Telephone Encounter - Denise Alvarado APRN.CNS - 05/09/2024 3:32 PM EDT OK * Telephone Encounter - Kristen Bronson LPN - 05/09/2024 11:12 AM EDT Lucero with [facility] calling to get verbal orders for delay of care. There were to start care on 05-08-24 with pt but was not able to get a hold of pt. Finally reached pt and she still wants OT and PT. Asking for delay of care. Please advise Lucero with verbal order. Kristen Bronson LPN documented in this encounterPeoples Hospital08-06-2024 Telephone encounter Note * Telephone Encounter - Denise Alvarado APRN.CNS - 05/09/2024 3:32 PM EDT [place] [facility] Telephone encounter Note* Telephone Encounter - Kristen Bronson LPN - 05/09/2024 11:12 AM EDT Lucero with [facility] HH calling to get verbal orders for delay of care. There were to start care on 05-08-24 with pt but was not able to get a hold of pt. Finally reached pt and she still wants OT and PT. Asking for delay of care. Please advise Lucero with verbal order. Kristen Bronson LPN [facility] Telephone encounter Note* Telephone Encounter - Brooke [...] 05/12/2024 Please advise. Thank you. Brooke Orlando. [facility]08-01-2024 Miscellaneous Notes* Telephone Encounter - Brooke Orlando [...] Thank you. Brooke Orlando. documented in this encounterPeoples Hospital07-31-2024 Telephone encounter Note * Telephone Encounter - Fátima Henry RN - 05/03/2024 4:40 PM EDT Verbal order was given to Lucero and confirmed okay per Dr. Adams. [facility] Miscellaneous Notes* Telephone Encounter - Fátima Henry [...] - 05/03/2024 4:00 PM EDT Lucero from [facility] HH calling to see if Dr. Adams will follow pt for PT/OT. Verbal order that Dr. Adams is okay and will follow pt. If any changes, please contact Lucero back at [phone] documented in this encounterPeoples Hospital07-31-2024 Telephone encounter Note * Telephone Encounter - Cole Bower APRN.CNP - 05/03/2024 4:29 PM EDT Please return call and let them know that yes, we will follow. Thanks! [facility] Telephone [facility] Note* Telephone Encounter - Fátima Henry RN - 05/03/2024 4:00 PM EDT Lucero from [facility] HH calling to see if Dr. Adams will follow pt for PT/OT. Verbal order that Dr. Adams is okay and will follow pt. If any changes, please contact Lucero back at [phone] [facility] Telephone encounter Note* Telephone Encounter - Corina [...] Corina Hinkle April 11, 2024 2:22 PM [facility] Miscellaneous Notes* Telephone Encounter - Corina Pacheco [...] 11, 2024 2:22 PM documented in this encounterPeoples Hospital07-09-2024 Telephone encounter Note * Telephone Encounter - Cole Bower APRN.CNP - 04/11/2024 8:35 AM EDT [facility] and [facility]. All prescriptions have been APPROPRIATELY filled. No suspiciousactivity was identified. 04/11/2024 by Cole Bower APRN.KENDAL [facility]2024 Miscellaneous Notes* Telephone Encounter - Cole Bower APRN.CNP - 04/11/2024 8:35 AM EDT [facility] checked and validated. All prescriptions have [...] mg per tablet Class: Normal [facility] [place] Patient has been identified by name and birthdate. Person calling: self Call patient at: at home [phone] (home) [phone] (cell) Was an appointment scheduled: No Closing statement: Results or non-symptom based questions: Thank you for [facility], your call will be returned within the next business day. Corina Hinkle documented in this encounterPeoples Hospital07-08-2024 Telephone encounter Note * Telephone Encounter - [...] Please advise. Thank you. Jaylyn Vazquez LPN. [facility]-08-2024 Miscellaneous Notes* Telephone Encounter - Jaylyn Vazquez [...] meals and at bedtime. for abdominal pain Cornia Hinkle April 10, 2024 10:30 AM documented in this encounterPeoples Hospital07-08-2024 Telephone encounter Note * Telephone Encounter - Jarrod Buckley MA - 04/10/2024 10:41 AM EDT LIDIA: 02/11/2024 NOV: 05/16/2024 [facility] Telephone encounter Note* Telephone Encounter - Corina [...] mg per tablet Class: Normal [facility] [place] Patient has been identified by name and birthdate. Person calling: self Call patient at: at home [phone] (home) [phone] (cell) Was an appointment scheduled: No Closing statement: Results or non-symptom based questions: Thank you for calling [facility], your call will be returned within the next business day. Corina Hinkle [facility] Telephone encounter Note* Telephone Encounter - Corina [...] Corina Hinkle April 10, 2024 10:30 AM [facility] Telephone [facility] Note* Telephone Encounter - Carmina Sylvester RPh - 03/31/2024 12:29 PM EDT Called patient and completed schedule visit [facility] Work Phone: 1(757) 516-753606-28-2024 Miscellaneous Notes* Telephone Encounter - Carmina Sylvester [...] Carmina Sylvester PharmD, JAVIER Primary Care Clinical Heel Seat Fitter documented in this encounterPeoples Hospital06-28-2024 Telephone encounter Note * Telephone Encounter - Carmina Sylvester RPh - 03/31/2024 12:27 PM EDT Patient's request for medication is as follows: Requested Prescriptions Pending Prescriptions Disp Refills Fenofibrate (LOFIBRA) 160 mg tablet 30 tablet 11 Sig: Take 1 tablet by mouth once daily. Prescription(s) as above. Please process accordingly. Carmina Sylvester PharmD, JAVIER Primary Care Clinical Heel Seat Fitter [facility] Miscellaneous Notes* Telephone Encounter - Carmina Sylvester RPh - 03/31/2024 12:27 PM EDT Patient's request for medication is as follows: Requested Prescriptions Pending Prescriptions Disp Refills Fenofibrate (LOFIBRA) 160 mg tablet 30 tablet 11 Sig: Take 1 tablet by mouth once daily. Prescription(s) as above. Please process accordingly. Carmina Sylvester, PharmD, BCACP Primary Care Clinical Heel Seat Fitter documented in this encounterPeoples Hospital06-28-2024 History of Present illness Narrative* Carmina Sylvester RPh - 03/31/2024 12:00 PM EDT Primary Care Pharmacy Visit CC (Reason for Consult): (E11.9) Type 2 diabetes (HCC) (primary encounter diagnosis) (E11.3319) 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) Goal(s): A1c <7% Last Collaborating Provider Visit: 02/11/24 with Cole Bower APRN, MANAGER APPOINTMENT Samantha Romero is a 58 year old [...] pain. With food. 30 tablet 1 Insulin Catarina, Disposable, (DROPLET PEN NEEDLE) 31 gauge x [...] 1 Each 0 flash glucose scanning reader (Open [employer] TAYLOR 14 DAY READER) Use to check [...] 10 mL INTRAVENOUS DIRECTED PRN Cole Bower APRN.MANAGER APPOINTMENT Pill bottles are not present. Adherence: denies missed doses. Rx coverage: Payor: [facility] MEDICAID / Plan: [facility] MEDICAID / Product Type: Medicaid / [...] Carmina Sylvester, Napoleon, BCACP Primary Care Clinical Heel Seat Fitter documented in this encounterPeoples Hospital06-28-2024 Telephone encounter Note * Telephone Encounter - Katherin Chowdhury - 03/31/2024 9:28 AM EDT Patient states she was in the restroom and missed the call,will await call back from Froylan. [facility] Telephone [facility] Note* Telephone Encounter - Carmina Sylvester RPh - 03/31/2024 9:13 AM EDT Called patient for scheduled phone follow up visit; unable to reach after multiple attempts. Unableto leave , mailbox full. Will attempt outreach to reschedule at later time. Carmina Sylvester, PharmD, BCACP Primary Care Clinical Heel Seat Fitter [facility] Telephone encounter Note* Telephone Encounter - Sarina [...] 30 days. Authorizing Provider: SARINA ADAMS MD [facility]-06[facility] Miscellaneous Notes* Telephone Encounter - Sarina Adams [...] Thank you. Corina Hinkle. documented in this encounterPeoples Hospital06-05-2024 Telephone encounter Note * Telephone Encounter - [...] 05/16/2024 Please advise. Thank you. Corina Hinkle. [facility]06-04[facility] History of Present illness Narrative* Click, Jacquelin Manning APRN.MANAGER APPOINTMENT - 03/07/2024 2:00 PM EDT Patient: Samantha [...] pain. With food.^Disp: 30 tablet^Rfl: 1 Insulin Catarina, Disposable, (DROPLET PEN NEEDLE) 31 gauge x [...] 1 Each^Rfl: 0 flash glucose scanning reader (Open [employer] TAYLOR 14 DAY READER)^Use to check blood [...] edited and updated as necessary. Jacquelin Valdez APRN.MANAGER APPOINTMENT Associated attestation - Brooke Be PA-C - 03/07/2024 4:34 PM EDT I have personally performed a face to face assessment of the patient and have reviewed the BINA note. My fontanez findings include: Exam is as documented. Assessment/Plan discussed and outlined above. Other additions or changes: As edited Signature: Brooke Be Date: 03/07/2024 Time: 4:34 PM documented in this encounterPeoples Hospital06-03-2024 Telephone encounter Note * Telephone Encounter - Maylin Delaney LPN - 03/06/2024 8:38 AM EDT Fax approval rec'd from [facility]. The insulin degludec was approved from 03/03/25 to 03/02/25. Pharmacy notified. [facility] Miscellaneous Notes* Telephone Encounter - Maylin Delaney LPN - 03/06/2024 8:38 AM EDT Fax approval rec'd from [facility]. The insulin degludec was approved from 03/03/25 to 03/02/25. Pharmacy notified. * Telephone Encounter - Maylin Delaney LPN - 03/03/2024 3:17 PM EDT Called the pharmacy regarding the triseba u100 for 78 units nightly for 24 ML (30 day) Pharmacy reports rx is not going through for any reason. Called [facility] to review the PA. Completed this over the phone. They will review and fax response urgently. This call reference number is [id number] documented in [facility] encounterPe[facility]05-[facility] Telephone encounter Note * Telephone Encounter - [...] response urgently. This call reference number is [id number] [facility] Tele[facility] Note* Telephone Encounter - Maylin Delaney LPN - 03/02/2024 8:38 AM EDT This PA was reviewed and [facility] canceled the PA. They note that the brand name is covered. I gavethem this info that the dose was increased. [facility] Miscellaneous Notes* Telephone Encounter - Maylin Delaney [...] complete PA electronic PA. documented in this encounterPeoples Hospital05-28-2024 Telephone encounter Note * Telephone Encounter - Maylin Delaney LPN - 02/29/2024 4:05 PM EDT Did rec'd and complete electronic PA for the tresiba. Info given that this was a dose/units change from 70 units nightly to 78 units nightly [facility] Tele[facility] encounter Note* Telephone Encounter - Maylin Delaney LPN - 02/29/2024 2:09 PM EDT Per dispense report tresiba was filled 12/10/23 for an 85 day supply so qty is too soon to fill today. This should go through by March. This was just increased 02/24/24. [facility] Telephone encounter Note* Telephone Encounter - Maylin Delaney LPN - 02/29/2024 1:02 PM EDT Called pharmacy about PA rec'd from covermymeds for the tresiba. [facility] report qty for 30 days would be 24 ML trying to complete PA electronic PA. [facility] Telephone encounter Note* Telephone Encounter - Carmina [...] above. Carmina Sylvester PharmD Primary Care Clinical Heel Seat Fitter [facility] Miscellaneous Notes* Telephone Encounter - Carmina Sylvester [...] above. Carmina Sylvester PharmD Primary Care Clinical Heel Seat Fitter * Telephone Encounter - Katherin Chowdhury - 02/25/2024 3:28 PM EDT Samantha has her pharmacy calling Carmina Sylvester RPh today to request [facility] pharmacy calling asking for direction clarity on the following Sliding scale directions on the Novolog Please call pharmacy or e-scribe those sliding scale directions Patient has been identified by name and birthdate. Person calling: pharmacy: [facility] Call patient at: on cell [phone] (home) [phone] (cell) Was an appointment scheduled: No Katherin Lagos documented in this encounterPeoples Hospital05-24-2024 Telephone encounter Note * Telephone Encounter - Katherin Chowdhury - 02/25/2024 3:28 PM EDT Samantha has her pharmacy calling Carmina Sylvester RPh today to request [facility] pharmacy calling asking for direction clarity on the following Sliding scale directions on the Novolog Please call pharmacy or e-scribe those sliding scale directions Patient has been identified by name and birthdate. Person calling: pharmacy: [facility] Call patient at: on cell [phone] (home) [phone] (cell) Was an appointment scheduled: No Katherin Lagos [facility] History of Present illness Narrative* Carmina Sylvester [...] pain. With food. 30 tablet 1 Insulin Catarina, Disposable, (DROPLET PEN NEEDLE) 31 gauge x [...] 10 mL INTRAVENOUS DIRECTED PRN Cole Bower APRN.MANAGER APPOINTMENT Pill bottles are not present. Adherence: denies missed doses. Rx coverage: Payor: [facility] / Plan: [facility]ICA[facility] / Product Type: Medicaid / [...] 03/31/24 Carmina Sylvester PharmD Primary Care Clinical Heel Seat Fitter documented in this encounterPeoples Hospital05-20-2024 Instructions* Patient Instructions* Ramesh Brewster MD - 02/21/2024 1:50 PM EDT We will repeat an echocardiogram in Sept documented in this encounterPeoples Hospital05-20-2024 History of Present illness Narrative* Ramesh Brewster MD - 02/21/2024 1:40 PM EDT Images from the original note were not included. [facility] SE[facility]IONAL CARDIOLOGY Cardiology ([facility]) [address] [id number] OUTPATIENT VISIT DATE 02/21/2024 PRIMARY CARE PHYSICIAN: Sarina Adams [address] [place] [address] REFERRING PHYSICIAN: Dr. Adams HISTORY OF PRESENT [...] pain. With food.^Disp: 30 tablet^Rfl: 1 Insulin Catarina, Disposable, (DROPLET PEN NEEDLE) 31 gauge x [...] 1 Each^Rfl: 0 flash glucose scanning reader (eCozySTYLE TAYLOR 14 DAY READER)^Use to check blood [...] effusion, hypertension, dyslipidemia, insulin requiring diabetes, prior 70-opmi-ghhy smoking history (quit 2016), chronic hypoxic respiratory [...] mg/dL Ramesh Brewster MD documented in this encounterPeoples Hospital05-20-2024 Telephone encounter Note * Telephone Encounter - Flaca Lindquist - 02/21/2024 8:47 AM EDT Telephoned the patient to schedule Primary Care pharmacy appt. Unable to leave a message as voicemail is still full. A SwapBeats message was already sent and patient has not viewed it. When the patientreturns the call, an appt will be schedule. Routing encounter to clinical pharmacist. [facility] Miscellaneous Notes* Telephone Encounter - Flaca Lindquist [...] MyChart message as well. documented in this encounterPeoples Hospital05-16-2024 Telephone encounter Note * Telephone Encounter - LiFlaca Clarke - 02/17/2024 10:53 AM EDT Telephoned the patient to schedule a new Primary Care pharmacy appt. Unable to LMOVM as her voicemail is full. Called secondary number (listed in phone comments), belonging to [employer], and left a generic message. Sending MyChart message as well. [facility] History of Present illness Narrative* Pat Iqbal [...] types. Pat Iqbal RPh documented in this encounterPeoples Hospital05-13-2024 Telephone encounter Note * Telephone Encounter - Cole Bower APRN.CNP - 02/14/2024 12:46 PM EDT Noted, glad she is feeling better. [facility] Miscellaneous Notes* Telephone Encounter - Cole Bower [...] - 02/14/2024 7:19 AM EDT Please call [place] and let her know the urine culture does confirm infection. She can stop the Flomax but should continue the Bactrim. Please see how she is feeling today. Thanks!! documented in this encounterPeoples Hospital05-13-2024 Telephone encounter Note * Telephone Encounter - Alicja Robin RN - 02/14/2024 11:13 AM EDT Pt called and is notified of providers results and instructions. Pt voices understanding. She states she feels a little better after starting the antibiotic. She states she has also been taking her Vicodin because she had bad stomach pain and it has eased up some. Alicja Robin RN [facility]-13-[facility] Telephone encounter Note* Telephone Encounter - Cole Bower APRN.CNP - 02/14/2024 7:19 AM EDT Please call Samantha and let her know the urine culture does confirm infection. She can stop the Flomax but should continue the Bactrim. Please see how she is feeling today. Thanks!! [facility]10[facility] History of Present illness Narrative* Cole Bower APRN.KENDAL - 02/11/2024 1:54 PM EDT SUBJECTIVE [...] stones. Not sure which this feel like. [place] was decreased back to BID but she [...] Other DM Code E11.40 Insulin: Yes Insulin Catarina, Disposable, (DROPLET PEN NEEDLE) 31 gauge x [...] - 04/19/2014 (A priority) Diabetic Eye Exam ([facility]) - 04/05/2014 (A priority) Hyperlipidemia - 04/05/2014 [...] - 10/19/2022 Comment: Intermittent reflux Myasthenia Gravis ([facility]) - 07/30/2022 Type 2 Diabetes Mellitus With Diabetic Neuropathy, With Long-Term Current Use of Insulin ([facility]) - 07/30/2022 Bilateral Leg Edema - 07/30/2022 Comment: worse on left Dysuria - 07/30/2022 Comment: Follow up with gynecology 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 Chronic Hypoxemic Respiratory Failure ([facility]) - 12/09/2021 Pneumonia Due to Covid-19 Virus - 08/05/2021 Status Post Cataract Extraction and Insertion of Intraocular Lens of Right Eye - 06/03/2021 Combined Forms of Age-Related Cataract of Left Eye - 05/09/2021 Type 2 Diabetes Mellitus With Moderate Nonproliferative Diabetic Retinopathy With Macular Edema ([facility]) - 05/09/2021 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 Cole Bower APRN-KENDAL documented in this encounterPeoples Hospital05-10-2024 Instructions* Patient Instructions* Rosa Elena Deluca LPN [...] treated. A physician, nurse practitioner or physician housing assistant may treat with a short course [...] women if symptoms resolve. documented in this encounterPeoples Hospital05-09-2024 Telephone encounter Note * Telephone Encounter - Jarrod Buckley MA - 02/10/2024 12:15 PM EDT TC to pt. Advised this was only a short term increase per last refill note. Pt states sometimes sheneeds to take more because of her pain. Reminded pt of OV scheduled for tomorrow with Cole and advised this could be discussed at that time. Pt verbalized understanding. [facility] Miscellaneous Notes* Telephone Encounter - Jarrod Buckley [...] and return her call documented in this encounterPeoples Hospital05-09-2024 Telephone encounter Note * Telephone Encounter - Kaley German - 02/10/2024 10:20 AM EDT Samantha is calling Sarina Adams MD today asking why the Hydrocodone medication was decreased, asking directions are taking 3 times a day instead of two? Please advise and return her call [facility] Tele[facility] encounter Note* Telephone Encounter - Jaylyn Vazquez LPN - 02/08/2024 10:45 AM EDT Spoke to [facility], Patient picked up Furosemide RX today, nothing more needed. Jaylyn Vazquez LPN [facility]-07-[facility] Miscellaneous Notes* Telephone Encounter - Jaylyn Vazquez LPN - 02/08/2024 10:45 AM EDT Spoke to [facility], Patient picked up Furosemide RX today, nothing more needed. Jaylyn Vazquez LPN documented in this encounterPeoples Hospital05-06-2024 Telephone encounter Note * Telephone Encounter - Cole Bower APRN.CNP - 02/07/2024 4:05 PM EDT [facility] and [facility]. All prescriptions have been APPROPRIATELY filled. No suspiciousactivity was identified. 02/07/2024 by Cole Bower APRN.KENDAL [facility] Miscellaneous Notes* Telephone Encounter - Cole Bower APRN.KENDAL - 02/07/2024 4:05 PM EDT [facility] checked and validated. All prescriptions have [...] notify patient. Mayte Vinson documented in this encounterPeoples Hospital05-06-2024 Telephone encounter Note * Telephone Encounter - [...] advise. Thank you. Rosa Elena Deluca LPN. [facility] Telephone encounter Note* Telephone Encounter - Rosa [...] advise. Thank you. Rosa Elena Deluca LPN. [facility] Miscellaneous Notes* Telephone Encounter - Rosa Elena [...] Rosa Elena Deluca LPN. documented in this encounterPeoples Hospital05-06-2024 Telephone encounter Note * Telephone Encounter - [...] No need to notify patient. Mayte Vinson [facility]-06-[facility] Telephone encounter Note* Telephone Encounter - Carolina [...] care: 02/07/2024 Please advise. Thank you. Carolina Corodva MA. T [facility]-06-20[facility] Miscellaneous Notes* Telephone Encounter - Carolina Cordova [...] you. Carolina Cordova MA. documented in this encounterPeoples Hospital05-06-2024 Telephone encounter Note * Telephone Encounter - Carolina Cordova MA - 02/07/2024 8:53 AM EDT Pt needs to contact office. [facility] Miscellaneous Notes* Telephone Encounter - Carolina Cordova MA - 02/07/2024 8:53 AM EDT Pt needs to contact office. documented in this encounterPeoples Hospital05-01-2024 History of Present illness Narrative* Addi Ng [...] PATIENT PRESENTS WITH AN IMPLANTABLE OR ATTACHED CHURCH HISTORY PROFESSOR: No RADIOLOGY DEPARTMENT: CT; Exam(s) Completed: Chest PERIPHERAL IV DATA: Not applicable SIGNED BY: RT Mallika(R) February 02, 2024 3:16 PM documented in this encounterPeoples Hospital04-10-2024 Miscellaneous Notes* Telephone Encounter - Sarina Adams [...] to check on the status of her [place]. Please send to pharmacy. * Telephone Encounter [...] you. Mara Degroot LPN. documented in this encounterPeoples Hospital04-05-2024 Miscellaneous Notes* Telephone Encounter - Jarrod Buckley MA - 01/07/2024 3:00 PM EDT Requested Prescriptions Pending Prescriptions Disp Refills furosemide (LASIX) 20 mg tablet 7 tablet 0 Sig: Take 1 tablet by mouth once daily. Date of last office visit in primary care: 12/10/2023 Date of next office visit in primary care: 02/11/2024 Please advise. Thank you. Jarrod Buckley MA. documented in this encounterPeoples Hospital04-01-2024 History of Present illness Narrative* Kay Paredes APRN.MANAGER APPOINTMENT - 01/03/2024 1:46 PM EDT Images from [...] 50% of waking hrs. Modified Medical Research [place] Dyspnea Scale (MMRC) I am too breathless [...] [place] Breast Cancer Maternal Aunt 50's Insulin Catarina, Disposable, (DROPLET PEN NEEDLE) 31 gauge x [...] DATE OF EXAM: Jul 17 2022 1:25PM [facility] 0541 - CT CHEST WO IVCON / [...] spleen are consistent with remote granulomatous disease Top Waddy (topogram) images: No additional findings. Impression: IMPRESSION: Bronchiectasis. Left lung base bleb Evidence of remote granulomatous disease. Pericardial effusion. No developing suspicious mass or adenopathy. No evidence of thymic mass. Bingo Usher: PSCB Transcribe Date/Time: Jul 21 2022 3:00P [...] Six year risk for lung cancer: 1.23% Https://Ramen/Kiswahili/result/female_[email or web address]_yes_unknown [email or web address]://[email or web address].be/[email or web address] I have determined that the patient [...] 03, 2024 1:49 PM documented in this encounterPeoples Hospital04-01-2024 Instructions* Patient Instructions* Kay Paredes APRN.KENDAL - [...] to endocrinology. Others Lung Cancer Screening hotline: [phone] Lung Cancer Screening [phone] Billing Questions: or [email or web address] Specialist Providers: (Haylee Reno PA-C; Madison Adan CNP; Aida Mckinney CNP, Citlaly Krishna MANAGER APPOINTMENT; Addi Dubois CNP; NITZA Owens; Kay Paredes CNP; Jacquelin Snell CNP; Makeda Sutton MANAGER APPOINTMENT; Mary Ann Babb MANAGER APPOINTMENT; Kathi Portillo PA-C; Humaira Zarate PA-C; Rosita Fermin CNP; Baylee French MANAGER APPOINTMENT; Alicja Walsh [facility]): [phone] documented in this encounterPeoples Hospital03-14-2024 Miscellaneous Notes* Telephone Encounter - Kristen Bronson LPN - 12/16/2023 1:59 PM EDT Patient has been identified by name and date of : Yes, Provider Dr. Means Date 12/16/23 Time 2 pm Pharmacy phones for refill(s): Requested Prescriptions Pending Prescriptions Disp Refills Insulin Catarina, Disposable, (DROPLET PEN NEEDLE) 31 gauge x 3/16 [Pharmacy Med Name: DROPLET PEN NEEDLE 31GX3/16] Sig: use 1 PEN NEEDLE to inject MEDICATION subcutaneously four times a day Date of last office visit in primary care: 12/10/23 Date of next office visit in primary care: 02/11/24 Thank you. Kristen Bronson LPN. documented in this encounterPeoples Hospital03-08-2024 Procedure note* Aby Mancuso RPFT - 12/10/2023 [...] walk at faster pace documented in this encounterPeoples Hospital03-08-2024 History of Present illness Narrative* Aby Mancuso RPFT - 12/10/2023 2:22 PM EST PULM FUNCTION SMARTBLOCK: Provider: Brooke Be PA-C Assisting Tech: Aby Mancuso RPFT Spirometry: 1 DLCO: 1 Oximetry - Ambulation: 1 documented in this encounterPeoples Hospital03-08-2024 Miscellaneous Notes* Telephone Encounter - Maylin Delaney LPN - 12/10/2023 1:24 PM EST Images from the original note were not included. Electronic PA rec'dd and completed for tresaleemba. This was approved. Prior authorization approved Payer: [facility] Your PA request for [id number] was approved for 365 days. The PA# assigned is [id number]. Approval Details Authorization number: [id number] Authorized from December 10, 2023 to December [...] To be filled at: e- [id number] [place] [address] - [address] [phone] [id number] documented in this encounterPeoples Hospital03-08-2024 History of Present illness Narrative* Cole Bower APRN.MANAGER APPOINTMENT - 12/10/2023 1:00 PM EST SUBJECTIVE Samantha [...] SUGAR (AROUND 80 UNITS PER DAY) Insulin Catarina, Disposable, (DROPLET PEN NEEDLE) 31 gauge x [...] Dx: I10 Hypertension flash glucose scanning reader (Open Ener[employer] TAYLOR 14 DAY READER) Use to check [...] Side - 04/12/2014 (C priority) Comment: Dr. sAh is her doctor. Routine Gynecological Examination - 04/04/2014 (D priority) Comment: Seeing Dr. Deluca. Pericardial Effusion - 01/25/2023 Obesity, Class II, Bmi 35-39.9 - 01/25/2023 Obesity, Class III, BMI >= 40 - 12/18/2022 Gastroesophageal Reflux Disease - 10/19/2022 Chronic Midline Low Back Pain - 10/19/2022 Esophageal Dysphagia - 10/19/2022 Gastroesophageal Reflux Disease With Esophagitis Without Hemorrhage - 10/19/2022 Comment: Intermittent reflux Myasthenia Gravis ([facility]) - 07/30/2022 Type 2 Diabetes Mellitus With Diabetic Neuropathy, With Long-Term Current Use of Insulin ([facility]) - 07/30/2022 Bilateral Leg Edema - 07/30/2022 Comment: worse on left Dysuria - 07/30/2022 Comment: Follow up with gynecology 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 Chronic Hypoxemic Respiratory Failure ([facility]) - 12/09/2021 Pneumonia Due to Covid-19 Virus - 08/05/2021 Status Post Cataract Extraction and Insertion of Intraocular Lens of Right Eye - 06/03/2021 Combined Forms of Age-Related Cataract of Left Eye - 05/09/2021 Type 2 Diabetes Mellitus With Moderate Nonproliferative Diabetic Retinopathy With Macular Edema ([facility]) - 05/09/2021 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 12/10/2023 by Cole Bower APRN.MANAGER APPOINTMENT Portions of this note have been entered [...] medications.. Cole Bower APRN-KENDAL documented in this [facility]03-06[facility] Miscellaneous Notes* Telephone Encounter - Jaylyn Vazquez LPN - 12/08/2023 3:53 PM EST Patient picked up RX today for Lasix. Jaylyn Vazquez LPN documented in this [facility]03-04-[facility] Miscellaneous Notes* Telephone Encounter - Jaylyn Vazquez [...] you. Jaylyn Vazquez LPN. documented in this [facility]03-04-[facility] Miscellaneous Notes* Telephone Encounter - Jaylyn Vazquez LPN - 12/06/2023 4:02 PM EST Samantha our office did receive your refill request for Gabapentin (Neurontin) however a new prescription was sent 11/08/2023 for 60 tablets, 5 refills to [facility]. Please check with your pharmacy, you have refills remaining. Jaylyn Vazquez LPN documented in this encounterPeoples Hospital02-28-2024 History of Present illness Narrative* Brooke Be [...] 80 UNITS PER DAY)^Disp: 60mL^Rfl: 3 Insulin Catarina, Disposable, (DROPLET PEN NEEDLE) 31 gauge x [...] 1 Each^Rfl: 0 flash glucose scanning reader (Open Energi TAYLOR 14 DAY READER)^Use to check blood [...] necessary. Brooke Be PA-C documented in this encounterPeoples Hospital02-13-2024 Miscellaneous Notes* Telephone Encounter - Sarina Adams [...] you. Mara Degroot LPN. documented in this encounterPeoples Hospital02-12-2024 Miscellaneous Notes* Telephone Encounter - Sarina Adams [...] you. Mara Degroot LPN. documented in this encounterPeoples Hospital02-12-2024 Miscellaneous Notes* Telephone Encounter - Sarina Adams [...] you. Mara Degroot LPN. documented in this encounterPeoples Hospital02-05-2024 Miscellaneous Notes* Telephone Encounter - GARIMA Rivera [...] you. Ruby Rivera LPN. documented in this encounterPeoples Hospital01-25-2024 History of Present illness Narrative* Josy Del [...] PATIENT PRESENTS WITH AN IMPLANTABLE OR ATTACHED CHURCH HISTORY PROFESSOR: Yes [facility] RADIOLOGY DEPARTMENT: General X-ray: Exam(s) Completed: Spine X-Ray(s): Lumbar AP / LAT / L5-S1 PERIPHERAL IV DATA: Not applicable SIGNED BY: Josy Del Rosario RT(R) October 28, 2023 3:02 PM documented in this encounterPeoples Hospital01-25-2024 Miscellaneous Notes* Result Encounter Note - Denise Alvarado APRN.CNS - 10/28/2023 3:00 PM EST Mild degenerative changes lumbar spine, no acute findings documented in this encounterPeoples Hospital01-25-2024 Progress note* Result Encounter Note - Denise Alvarado APRN.CNS - 10/28/2023 3:00 PM EST Mild degenerative changes lumbar spine, no acute findings [facility] History of Present illness Narrative* Sarina Adams [...] right. A little shooting into buttocks. Dr. Saores saw her 07/01/23. Nothing noted on Lumbar [...] that was okay but sent her to pilot plant operator just to make sure everything okay. Appointment in February. Pain in chest just once a while. If lifts too much can make chest hurt. States that does not recall getting Vitamin D RX filled at [facility] though Medication Dispense History says was [...] mg subcutaneously one time a week. Insulin Catarina, Disposable, (DROPLET PEN NEEDLE) 31 gauge x [...] issue. Sarina Adams MD documented in this encounterPeoples Hospital12-13-2023 Miscellaneous Notes* Telephone Encounter - Jarrod Buckley Ma - 09/15/2023 2:12 PM EST Notified by [employer]. * Telephone Encounter - Cheryl Davila OCCA [...] patient. Corina Bronson Pss documented in this encounterPeoples Hospital12-12-2023 Miscellaneous Notes* Telephone Encounter - Daja Santos LPN - 09/14/2023 1:45 PM EST Pt calling thinking she missed call from office. Advised her did not see any messages. Did advise pt of My Chart message regarding vit D3 refill. Pt verbalizes understanding. Advised pt [place] requesthas not been addressed yet. Daja Santos LPN documented in this encounterPeoples Hospital12-12-2023 Miscellaneous Notes* Telephone Encounter - Jaylyn Vazquez [...] refills. Jaylyn Vazquez LPN documented in this [facility]12[facility] Miscellaneous Notes* Telephone Encounter - Cheryl Davila [...] Thank you. ANGEL Marc. documented in this encounterPeoples Hospital12-02-2023 Miscellaneous Notes* Telephone Encounter - Sarina Adams [...] time Rere Moore MA documented in this encounterPeoples Hospital11-09-2023 Discharge summary Author Vikram Hicks [facility] August 12, 2023 9:14pm Note Date/Time August 12, 2023 3 :41pm [facility] Medical Records Department [address] [place] [address] Emergency Department Summary 08/12/23 MR#: [id number] Acct: [id number] Name: SAMANTHA ROMERO Rep #:[id number] : 1965 57 From: Vikram Hicks MD [...] She is not sure of the dose. [facility] Medical History Anemia Chronic respiratory failure with [...] Cancelled 63.8 Lymph % (Auto) Cancelled 21.5 White % (Auto) Cancelled 10.6 H Eos % [...] Drop Cells Cancelled Ovalocytes Cancelled Stomatocytes Cancelled Vega-Madill Bodies Cancelled Kinsey Cells Cancelled Bite Cells [...] (Auto) Neut % (Auto) Lymph % (Auto) White % (Auto) Eos % (Auto) Baso % [...] Target Cells Tear Drop Cells Ovalocytes Stomatocytes Vega-Madill Bodies [place] Cells Bite Cells Crenated Cell Acanthocytes (Spur) [...] No ectopy. No acuteST elevation or depression. IA interval, QRS duration and QTc are normal. [...] your Primary Care Provider. Call [facility] ([phone]) or report to the closest Emergency Room. Call 911 if necessary. 08/12/232113 <Electronically signed by Vikram Hicks MD> Cosigner Signature (if applicable): CC: Dr. Sarina Adams MD ~ Signed [facility] Work Phone: 1(278) 515-158511-09-2023 History of Present illness Narrative* Ericka Zamora, [...] continue care with primary care doctor and/or asphalt blender to maintain optimum levels as they are [...] 12, 2023 2:11 PM documented in this encounterPeoples Hospital10-23-2023 Miscellaneous Notes* Telephone Encounter - Mara Degroot [...] you. Mara Degroot LPN. documented in this encounterPeoples Hospital10-23-2023 Miscellaneous Notes* Telephone Encounter - Mara Degroot [...] you. Mara Degroot LPN. documented in this encounterPeoples Hospital10-23-2023 Miscellaneous Notes* Telephone Encounter - Brooke Sanchez [...] Duenas CNP for Type 2 diabetes in [place]. documented in this encounterPeoples Hospital10-19-2023 Instructions* Patient Instructions* Denise Alvarado APRN.FELLING MACHINE OPERATOR - 07/22/2023 2:06 PM EDT Continue with [...] any other concerning symptoms. documented in this encounterPeoples Hospital10-19-2023 History of Present illness Narrative* Denise Alvarado [...] from previous visit: She was seen at [facility] emergency department April 09, 2023. [...] on outside medication review. [facility] has not had for months, [facility] pharmacist told her not avialble At [...] in January 2023 for pericardial effusion by [facility] cardiology. 3 months follow-up echo recommended. [...] chronic back pain for which she takes [employer] Hemoglobin A1C (%) Date Value 06/28/2023 12.6 [...] GI Upset and off balance Medications Insulin Catarina, Disposable, (DROPLET PEN NEEDLE) 31 gauge x [...] 1 Each^Rfl: 0 flash glucose scanning reader (Open [employer] TAYLOR 14 DAY READER)^Use to check blood [...] in September TSH in August Denise Alvarado APRN.FELLING MACHINE OPERATOR Medical Decision Making: Problems: Moderate: 2+ stable chronic illnesses Data: Unique test(s) ordered: 1 Risk: Moderate: Drug management Medical Decision Making Level: 4 - Moderate documented in this encounterPeoples Hospital10-10-2023 Miscellaneous Notes* Telephone Encounter - Alicja Padgett [...] unable to leave message. documented in this encounterPeoples Hospital09-29-2023 Miscellaneous Notes* Telephone Encounter - Vanessa Heredia [...] her pain medication. Pt is now on Richmond 1 tab daily PRN for pain. She [...] doses of her synthroid? documented in this encounterPeoples Hospital09-28-2023 NoteHNO ID: [id number] Author: Helene Chapa LPN Service: ? Author [...] and suicidal ideas. The patient is not nervous/anxious.[facility]09-28-[facility] History of Present illness Narrative* Karlee Pak [...] 01, 2023 3:19 PM documented in this encounterPeoples Hospital09-28-2023 History of Present illness Narrative* Helene Chapa [...] not included. [facility] Today's Date: 07/01/2023 Last Visit: N/A [...] Assessment - - Medications: CURRENT Pain Medications: Richmond 5/325mg once daily PRN (PCP) Mobic 15mg PRN (PCP) Gabapentin 600mg BID - for peripheral neuropathy (PCP) Pain Medications Taken TO DATE (for the chief complaint(s)): Membrane Stabilizers: Neurontin (Gabapentin) NSAIDS: Naprosyn (Naproxen) and Mobic (Meloxicam) Opioids: Vicodin or Richmond (Hydrocodone) Muscle Relaxants: Zanaflex (Tizanidine) Topicals: none [...] identified. on 07/01/2023 by Jaida Soares MD Richmond 5/325, #30 (06/24/2023, 05/25/2023, 04/25/2023)... (PCP) Recent [...] was advised that they will need a pile driver operator for after the procedure and that if no pile driver operator is available and on site at the time of the procedure, the procedure will be cancelled. For any anticoagulants, the patient was advised on whether to continue or hold for this procedure. The patient expressed understanding and gave verbal consent to proceed. Medication(s): Richmond 5/325mg once daily PRN - advised her to avoid opioids given she is on O2 and opioids are contraindicated for chronic, non-malignant MSK pain Mobic 15mg PRN (PCP) - advised to continue Gabapentin 600mg BID (PCP) - advised to continue Additional Studies: X-ray lumbar spine Referrals: No additional considerations at present Functional Buddhist: Physical Therapy (Land-based) - Recommended, patient declined [...] MD Pain Management [facility], [facility] documented in this encounterPeoples Hospital09-27-2023 NoteHNO ID: [id number] Author: Jaida Soares MD Service: ? Author Type: Physician Type: Progress Notes Filed: 07/01/2023 2:38 PM Note Text: [facility] Today's Date: 07/01/2023 Last Visit: N/A [...] Assessment - - Medications: CURRENT Pain Medications: Richmond 5/325mg once daily PRN (PCP) Mobic 15mg PRN (PCP) Gabapentin 600mg BID - for peripheral neuropathy (PCP) Pain Medications Taken TO DATE (for the chief complaint(s)): Membrane Stabilizers: Neurontin (Gabapentin) NSAIDS: Naprosyn (Naproxen) and Mobic (Meloxicam) Opioids: Vicodin or [place] (Hydrocodone) Muscle Relaxants: Zanaflex (Tizanidine) Topicals: none [...] identified. on 07/01/2023 by Jaida Soares MD Richmond 5/325, #30 (06/24/2023, 05/25/2023, 04/25/2023)... (PCP) Recent [...] Tibialis (L4): 5 L (more content not included)...[facility]09-25-2023 History of Present illness Narrative* Cole Bower APRN.MANAGER APPOINTMENT - 06/28/2023 1:58 PM EDT SUBJECTIVE Samantha [...] several occasions. End of April was in [facility], follow up for pericardial effusion. Had [...] times daily. Dx: E11.9 Insulin: Yes Insulin Catarina, Disposable, (BD ULTRAFINE III MINI PEN) 31 [...] - 10/19/2022 Comment: Intermittent reflux Myasthenia Gravis ([facility]) - 07/30/2022 Type 2 Diabetes Mellitus With Diabetic Neuropathy, With Long-Term Current Use of Insulin ([facility]) - 07/30/2022 Bilateral Leg Edema - 07/30/2022 Comment: worse on left Dysuria - 07/30/2022 Comment: Follow up with gynecology 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 Chronic Hypoxemic Respiratory Failure ([facility]) - 12/09/2021 Pneumonia Due to Covid-19 Virus - 08/05/2021 Status Post Cataract Extraction and Insertion of Intraocular Lens of Right Eye - 06/03/2021 Combined Forms of Age-Related Cataract of Left Eye - 05/09/2021 Type 2 Diabetes Mellitus With Moderate Nonproliferative Diabetic Retinopathy With Macular Edema ([facility]) - 05/09/2021 Type 2 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 Macular Edema, Without Long-Term Current Use of Insulin ([facility]) - 05/09/2021 Uncontrolled Type 2 Diabetes With [...] DM. Cole Bower APRN-KENDAL documented in this encounterPeoples Hospital09-21-2023 Miscellaneous Notes* Telephone Encounter - Sarina Adams [...] 06/28/23 Carolina Cordova MA documented in this encounterPeoples Hospital08-21-2023 Miscellaneous Notes* Telephone Encounter - Sarina Adams [...] Thank you. ANGEL Marc documented in this encounterPeoples Hospital08-21-2023 Miscellaneous Notes* Result Encounter Note - Denise Alvarado APRN.CNS - 05/24/2023 3:00 PM EDT No fracture or dislocation of her arm or hand documented in this encounterPeoples Hospital08-21-2023 Progress note* Result Encounter Note - Denise Alvarado APRN.CNS - 05/24/2023 3:00 PM EDT No fracture or dislocation of her arm or hand [facility]-21-[facility] Instructions* Patient Instructions* Denise Alvarado APRN.CNS - 05/24/2023 2:45 PM EDT For wrist and arm: Complete XR today For leg swelling: Take furosemide 40 mg daily in the morning. Take potassium while taking furosemide Let us know if not improving. documented in this encounterPeoples Hospital08-21-2023 History of Present illness Narrative* Denise Alvarado [...] from previous visit: She was seen at [facility] emergency department April 09, 2023. [...] on outside medication review. [facility] has not had for months, [...] in January 2023 for pericardial effusion by [facility] cardiology. 3 months follow-up echo recommended. [...] chronic back pain for which she takes Richmond and requesting refill. Hemoglobin A1C (%) Date [...] daily as needed.^Disp: 1 Each^Rfl: 11 Insulin Catarina, Disposable, (BD ULTRAFINE III MINI PEN) 31 [...] 1 Each^Rfl: 0 flash glucose scanning reader (Open [employer] TAYLOR 14 DAY READER)^Use to check blood [...] two times a week.^Disp: 42.5 g^Rfl: 6 [place]-3 Fatty Acids-Vitamin E 1,000 mg cap^Take 1 [...] Abs Lymph 1.00 - 4.00 k/uL 1.18 White% % 8.2 Abs White <0.87 k/uL 0.46 Eosin% % 5.2 Abs [...] cardiology visit scheduled for June. Denise Alvarado APRN.FELLING MACHINE OPERATOR Medical Decision Making: Problems: Low: Acute, uncomplicated illness or injury Moderate: 1+ chronic illnesses with change Data: Unique test(s) ordered: 2 Risk: Moderate: Drug management Medical Decision Making Level: 4 - Moderate documented in this encounterPeoples Hospital08-16-2023 History of Present illness Narrative* Siddhartha Guardado [...] 19, 2023 2:59 PM documented in this encounterPeoples Hospital08-14-2023 Instructions* Patient Instructions* Denise Alvarado APRN.CNS - 05/17/2023 12:25 PM EDT Continue with thyroid medicine unchanged Continue with Trulicity unchanged Start taking furosemide daily in the morning This should help with leg swelling and weight gain documented in this encounterPeoples Hospital08-14-2023 History of Present illness Narrative* Denise Alvarado [...] from previous visit: She was seen at [facility] emergency department April 09, 2023. [...] on outside medication review. States refills at [facility] Yancey: has not had for months, [...] January 2023 for pericardial effusion by [facility] cardiology. 3 months follow-up echo recommended. [...] daily as needed.^Disp: 1 Each^Rfl: 11 Insulin Catarina, Disposable, (BD ULTRAFINE III MINI PEN) 31 [...] 1 Each^Rfl: 0 flash glucose scanning reader (Open [employer] TAYLOR 14 DAY READER)^Use to check blood sugar 4 times daily^Disp: 1 Each^Rfl: 0 estradiol (ESTRACE) 0.01 % (0.1 mg/gram) vaginal cream^Use 3 g vaginally two times a week.^Disp: 42.5 g^Rfl: 6 [place]-3 Fatty Acids-Vitamin E 1,000 mg cap^Take 1 [...] Abs Lymph 1.00 - 4.00 k/uL 1.18 White% % 8.2 Abs White <0.87 k/uL 0.46 Eosin% % 5.2 Abs [...] Level: 4 - Moderate documented in this encounterPeoples Hospital08-11-2023 Miscellaneous Notes* Telephone Encounter - Mara Grady LPN - 05/14/2023 3:13 PM EDT Patient notified of providers message and verbalized understanding. * Telephone Encounter - Mara Grady LPN - 05/13/2023 4:32 PM EDT No answer and voice mailbox is full. * Telephone Encounter - Denise Alvarado APRN.FELLING MACHINE OPERATOR - 05/13/2023 4:19 PM EDT Check to [...] ANGEL Marc * Telephone Encounter - AlvaradoDenise APRN.FELLING MACHINE OPERATOR - 04/30/2023 4:50 PM EDT Check to [...] Abs Lymph 1.00 - 4.00 k/uL 1.18 White% % 8.2 Abs White <0.87 k/uL 0.46 Eosin% % 5.2 Abs [...] 4.1 pg/mL 1.9 (L) documented in this encounterPeoples Hospital08-09-2023 Miscellaneous Notes* Telephone Encounter - Sarina Adams [...] you. Jaylyn Vazquez LPN documented in this encounterPeoples Hospital08-08-2023 Miscellaneous Notes* Telephone Encounter - Jaylyn Vazquez [...] you. Jaylyn Vazquez LPN documented in this encounterPeoples Hospital07-19-2023 Miscellaneous Notes* Telephone Encounter - Jaylyn Vazquez LPN - 04/21/2023 9:52 AM EDT Patient will check with pharmacy re: refill. Jaylyn Vazquez LPN documented in this encounterPeoples Hospital07-19-2023 Miscellaneous Notes* Telephone Encounter - Jaylyn Vazquez LPN - 04/21/2023 9:49 AM EDT Duplicate request, Patient to check with pharmacy. Jaylyn Vazquez LPN documented in this encounterPeoples Hospital07-18-2023 Miscellaneous Notes* Telephone Encounter - Rosendo Navarro MA - 04/20/2023 10:45 AM EDT Replied to pt [facility] message about mediation refill insulin aspart U-100 (NOVOLOG FLEXPEN U-100 INSULIN) 100 unit/mL (3 mL). Please allow 3 business days to process. Routed to provider Rosendo Navarro MA documented in this encounterPeoples Hospital07-18-2023 Miscellaneous Notes* Telephone Encounter - Rosendo Navarro MA - 04/20/2023 10:20 AM EDT Requester: Patient Patients last Endocrinology visit occurred 10/21/22. Follow-up evaluation has Not been established Upcoming Endocrinology Appointments - Next 365 Days No appointments to display . Requested Prescriptions Pending Prescriptions Disp Refills insulin aspart U-100 (NOVOLOG FLEXPEN U-100 INSULIN) 100 unit/mL (3 mL) [Pharmacy Med Name: [id number] UNIT/ML FLEXPEN] 15 mL Sig: inject 20 units with meals three times a day , PLUS SLIDING SCALE #2 BASED ON PRE-MEAL BLOOD SUGAR (AROUND 80 UNITS PER DAY) If patient is due for an appointment please route to provider for refill consideration and also to the endo scheduling pool. PSS NOTE: Patient needs scheduled appointment Yes documented in this encounterPeoples Hospital07-17-2023 Miscellaneous Notes* Telephone Encounter - Sarina Adams MD - 04/19/2023 7:28 PM EDT Okayed * Telephone Encounter - Rosa Elena Dleuca LPN - 04/19/2023 4:11 PM EDT Last [...] Rosa Elena Deluca LPN documented in this encounterPeoples Hospital07-17-2023 Miscellaneous Notes* Telephone Encounter - Sarina Adams [...] Rosa Elena Deluca LPN documented in this encounterPeoples Hospital07-12-2023 History of Present illness Narrative* Aby Mancuso RPFT - 04/14/2023 2:25 PM EDT PULM FUNCTION SMARTBLOCK: Provider: Brooke Be PA-C Assisting Tech: Aby Mancuso RPFT Oximetry - Ambulation: 1 documented in this encounterPeoples Hospital07-07-2023 Discharge summary Author Tavo Son [facility] April 09, 2023 10:25pm Note Date/Time April 09, 2023 7:59p [facility] Medical Records Department [address] [place] [address] Emergency Department Summary 04/09/23 MR#: [id number] Acct: [id number] Name: SAMANTHA ROMERO Rep #:[id number] : 1965 57 From: Taylor CIFUENTES PCP: [...] <ESAU Dias - Last Filed: 04/09/23 20:58> [facility] Medical History Anemia Chronic respiratory failure with [...] Oxygen Delivery Method Oxygen Flow Rate (L/min) [facility] <ESAU Dias - Last Filed: 04/09/23 20:58> [facility] Narrative Medical decision making narrative: Patient was [...] Cancelled 57.0 Lymph % (Auto) Cancelled 33.8 White % (Auto) Cancelled 6.7 Eos % (Auto) [...] Drop Cells Cancelled Ovalocytes Cancelled Stomatocytes Cancelled Vega-Madill Bodies Cancelled [place] Cells Cancelled Bite Cells Cancelled Crenated Cell [...] Son, DO - Last Filed: 04/09/23 21:53> [facility] Lab Data Labs: Laboratory Results - [...] Cancelled 57.0 Lymph % (Auto) Cancelled 33.8 White % (Auto) Cancelled 6.7 Eos % (Auto) [...] Drop Cells Cancelled Ovalocytes Cancelled Stomatocytes Cancelled Vega-Madill Bodies Cancelled Kinsey Cells Cancelled Bite Cells [...] sinus rhythm with a rate of 81. IA interval was normal at 170 ms. QRS interval was normal at 100 ms. QTc interval was normal at 466 ms. Bokeelia was normal at -7. There are no [...] your Primary Care Provider. Call [facility] ([phone]) or report to the closest Emergency Room. Call 911 if necessary. 04/09/232057 <Electronically signed by Taylor CIFUENTES> Cosigner Signature (if applicable): 04/09/232224 <Electronically signed by Tavo Son DO> CC: Dr. Sarina Adams MD ~ Signed [facility] Work Phone: 1(188) 510-278606-28-2023 Miscellaneous Notes* Telephone Encounter - Jaylyn Vazquez [...] you. Jaylyn Vazquez LPN documented in this encounterPeoples Hospital06-27-2023 History of Present illness Narrative* Kimberly Brunson - 03/30/2023 2:33 PM EDT Contacted patient, scheduled oximetry with ambulation testing and a follow up Patient was given the phone number to schedule pain consult with Dr. Fausto Brunson * Sarina Adams MD - 03/26/2023 3:10 PM EDT This note was created using NeuStringriter. Subjective Samantha Romero is a 57 year old female. Patient presents with: Established Patient SUBJECTIVE: Samantha Romero is a 57 year old year old lady here today for follow up appointment for review of medical conditions. Ongoing back pain. Gabapentin helps at night. Cannot do dishes. Cannot stand for long. Just a few minutes--less than 10 minutes/. Hurts while sitting at about 3/10. Richmond helps. Not radiating into legs. Hands cramping--more [...] meal blood sugar. ~80 units daily Insulin Catarina, Disposable, (BD ULTRAFINE III MINI PEN) 31 [...] 3 g vaginally two times a week. [place]-3 Fatty Acids-Vitamin E 1,000 mg cap Take [...] moderate nonproliferative diabetic retinopathy with macular edema ([facility]) E11.3319 COMP METABOLIC PANEL CBC HGB A1C 2. Chronic midline low back pain, unspecified whether sciatica present M54.50 CONSULT TO PAIN MGT G89.29 HYDROcodone-acetaminophen (NORCO) 5-325 mg per tablet gabapentin (NEURONTIN) 600 mg tablet 3. Acquired hypothyroidism E03.9 TSH BLD T4 FREE/FREE THYROX T3 FREE BLD 4. Bilateral leg edema R60.0 5. Chronic hypoxemic respiratory failure ([facility]) J96.11 6. Essential hypertension I10 COMP METABOLIC PANEL CBC 7. Myasthenia gravis ([facility]) G70.00 DEPRESSION SCREENING/ASSESSMENT COMP METABOLIC PANEL CBC HGB A1C VITAMIN D 25 HYDROXY TSH BLD T4 FREE/FREE THYROX T3 FREE BLD 8. Class 3 severe obesity due to excess calories with serious comorbidity and body mass index (BMI)of 40.0 to 44.9 in adult ([facility]) E66.01 DEPRESSION SCREENING/ASSESSMENT Z68.41 COMP METABOLIC PANEL CBC HGB A1C VITAMIN D 25 HYDROXY TSH BLD T4 FREE/FREE THYROX T3 FREE BLD 9. Thrombocytopenia ([facility]) D69.6 TSH BLD T4 FREE/FREE THYROX T3 [...] 30 days once daily for now with Richmond. At this time benefits outweigh risks. Continue to monitor for adverse effects and indications for decreasing dose or tapering off. No signs of diversion or abuse of medication(s); no adverse effects. Continue present management. I spent a total of 54 minutes on the date of the service which included [id number] patient care, completing clinical documentation, obtaining and/or reviewing separately obtained history, performing a medically appropriate examination, counseling and educating the patient/family/caregiver, ordering medications, tests, or procedures, and communicating results to the patient/family/caregiver. Sarina Adams MD documented in this encounterPeoples Hospital06-23-2023 Instructions* Patient Instructions* Sarina Adams MD - 03/26/2023 3:37 PM EDT Take thyroid pill by itself. May take at bedtime with ideally nothing to eat 2 hours prior. If taking in the morning, should be by itself and 30 to 60 minutes for taking anything else or eating anything. documented in this encounterPeoples Hospital06-22-2023 Miscellaneous Notes* Telephone Encounter - Sarina Adams [...] you. Kristen Bronson LPN documented in this encounterPeoples Hospital06-21-2023 Miscellaneous Notes* Telephone Encounter - Tiny Leon [...] you. Tiny Leon, RN documented in this encounterPeoples Hospital06-21-2023 Miscellaneous Notes* Telephone Encounter - Kristen Bronson LPN - 03/24/2023 4:43 PM EDT I checked with the pharmacy and pt has refills left on both prescriptions below. Unable to reach ptby phone, voice mail is full. If pt calls back she can call the pharmacy for prescriptions to be filled. Kristen Bronson LPN documented in this encounterPeoples Hospital06-06-2023 Miscellaneous Notes* Telephone Encounter - Mara Grady [...] you. Mara Grady LPN documented in this encounterPeoples Hospital06-01-2023 Miscellaneous Notes* Telephone Encounter - Kristen Bronson LPN - 03/04/2023 2:17 PM EDT Unable to reach pt by phone. Sending a [employer] message that her medication has been sent [...] you. Jaylyn Vazquez LPN documented in this encounterPeoples Hospital05-17-2023 Miscellaneous Notes* Telephone Encounter - Cole Bower APRN.MANAGER APPOINTMENT - 02/17/2023 12:22 PM EDT PDMP website [...] you. Mara Grady LPN documented in this encounterPeoples Hospital05-15-2023 Miscellaneous Notes* Telephone Encounter - Mara Grady [...] you. Mara Grady LPN documented in this encounterPeoples Hospital05-09-2023 Miscellaneous Notes* Telephone Encounter - Alicja Hilton [...] advise. Alicja Hilton MA documented in this encounterPeoples Hospital05-08-2023 Miscellaneous Notes* Telephone Encounter - Cole Bower APRN.CNP - 02/08/2023 2:49 PM EDT PDMP [...] Thank you. ANGEL Marc documented in this encounterPeoples Hospital04-27-2023 Miscellaneous Notes* Telephone Encounter - Kristen Celeste [...] you. Kristen Bronson LPN documented in this encounterPeoples Hospital04-24-2023 Miscellaneous Notes* Telephone Encounter - Brooke Sanchez RN - 01/25/2023 2:06 PM EDT Called pt x2 today to switch medication to Trulicity, no answer both times. Unable to leave a voicemail as the mailbox is full and cannot accept messages. * Telephone Encounter - Jerrica Duenas APRN.MANAGER APPOINTMENT - 01/23/2023 7:22 PM EDT Please inform [...] 300 mg, victoza 18 mg/3ml pen, and [id number] mg and 25 mg * Telephone Encounter - Maylin Delaney LPN - 01/22/2023 1:33 PM EDT Samantha Romero ([place]: [id number]) - [id number] Mounjaro 10MG/0.5ML pen-injectors Outcome: Denied * Telephone Encounter - Maylin Delaney LPN - 01/19/2023 11:33 AM EDT Samantha Romero ([place]: [id number]) - [id number] Mounjaro 10MG/0.5ML pen-injectors Status: Sent to Plan Created: January 15, 2023 Sent: January 19, 2023 documented in this encounterPeoples Hospital04-24-2023 Instructions* Patient Instructions* Ramesh Brewster MD - 01/25/2023 10:21 AM EDT We are going to schedule a follow up echocardiogram in March-April Continue low salt diet 2000 meq per day documented in this encounterPeoples Hospital04-24-2023 History of Present illness Narrative* Ramesh Brewster MD - 01/25/2023 10:00 AM EDT Images from the original note were not included. [facility] SE[facility]IONAL CARDIOLOGY Cardiology ([facility]) [address] [id number] OUTPATIENT VISIT DATE 01/20/2023 PRIMARY CARE PHYSICIAN: Sarina Adams [address] [place] [address] REFERRING PHYSICIAN: Dr. Adams CHIEF COMPLAINT: Pericardial [...] ~80 units daily^Disp: 15 Each^Rfl: 3 Insulin Catarina, Disposable, (BD ULTRAFINE III MINI PEN) 31 [...] 1 Each^Rfl: 0 flash glucose scanning reader (Open Energi TAYLOR 14 DAY READER)^Use to check blood sugar 4 times daily^Disp: 1 Each^Rfl: 0 estradiol (ESTRACE) 0.01 % (0.1 mg/gram) vaginal cream^Use 3 g vaginally two times a week.^Disp: 42.5 g^Rfl: 6 tirzepatide (MOUNJARO) 10 mg/0.5 mL pen injector^Inject 10 mg subcutaneously one time a week.^Disp:4 Each^Rfl: 11 [place]-3 Fatty Acids-Vitamin E 1,000 mg cap^Take 1 [...] ICD10: I31.39 Patient recently seen at the [place] emergency room at which time her BNP [...] E66.9 Ramesh Brewster MD documented in this encounterPeoples Hospital04-21-2023 Miscellaneous Notes* Telephone Encounter - ANGEL Marc [...] before she takes the medication. Patient said HOSPICE CARE SALES CONSULTANT said she could change the rx to Vicodin if these bothered her. Patient said [facility]. Aware HOSPICE CARE SALES CONSULTANT os out of the office on . Please advise documented in this encounterPeoples Hospital04-17-2023 Miscellaneous Notes* Telephone Encounter - Carolina Trevino [...] and CRP. She is not scheduled with [facility] cardiology until June as a new patient. I did an e-consult since I am a little concerned about her waiting that long and they recommended pericardial clinic eval but I do not think patient is willing to travel. Any other suggestions for current management or would you like to move up her new patient appointment? Cole Bower APRN.KENDAL documented in this encounterPeoples [facility]04-14-[facility]23 History of Present illness Narrative* Cole Bower [...] pericardial effusion without tamponade. Was seen in [facility], discharged home. Increased HCTZ. Referred to [...] Other DM Code E11.40 Insulin: Yes Insulin Catarina, Disposable, (BD ULTRAFINE III MINI PEN) 31 [...] to check blood sugar 4 times daily [place]-3 Fatty Acids-Vitamin E 1,000 mg cap Take [...] - 10/19/2022 Comment: Intermittent reflux Myasthenia Gravis ([facility]ly [facility]) - 07/30/2022 Type 2 Diabetes Mellitus With Diabetic Neuropathy, With Long-Term Current Use of Insulin ([facility]) - 07/30/2022 Bilateral Leg Edema - 07/30/2022 [...] Moderate Nonproliferative Diabetic Retinopathy With Macular Edema ([facility]) - 05/09/2021 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 01/15/2023 by Cole Bower APRN.MANAGER APPOINTMENT - OXYCODONE-ACETAMINOPHEN 5 MG-325 MG TABLET 4. [...] there.. Cole Bower APRN-KENDAL documented in this encounterPeoples Hospital04-10-2023 Miscellaneous Notes* Telephone Encounter - Rosa Elena [...] Patient calling, states that she went to [facility] ER yesterday and they said there was a small amount offluid around her heart. They recommended PCP change her water pill. Patient states she has an appt on 01/15 already scheduled and would like to keep appt as is but is asking if medication could be ordered before the appt. Please advise. documented in this encounterPeoples Hospital03-27-2023 Miscellaneous Notes* Telephone Encounter - Gavi Thompson [...] LIDIA:10/21/22 No Future OV documented in this encounterPeoples Hospital03-24-2023 Miscellaneous Notes* Telephone Encounter - Ruby Spring [...] you. Ruby Spring LPN documented in this encounterPeoples Hospital03-24-2023 Miscellaneous Notes* Telephone Encounter - Ruby Spring [...] you. Ruby Spring LPN documented in this encounterPeoples Hospital03-24-2023 Miscellaneous Notes* Telephone Encounter - Marizol Castellano LPN - 12/25/2022 4:42 PM EDT Patient phones requesting refills as follows: Requested Prescriptions Pending Prescriptions Disp Refills clotrimazole-betamethasone (LOTRISONE) cream 45 g 0 Sig: Apply 1 application to affected area twice daily. X 2 weeks. LIDIA 12/18/22 NOV no upcoming appt noted Please review and advise. Marizol Castellano LPN documented in this encounterPeoples Hospital03-17-2023 Miscellaneous Notes* Telephone Encounter - Cole Bower [...] appt today. Asked patient if she told HOSPICE CARE SALES CONSULTANT that she did not have any at home, patient said no I did not tell her. Now patient needs new rx for the 600 mg Gabapentin rx sent to [facility] pharmacy. Pending rx needs completed. Please advise documented in this encounterPeoples Hospital03-17-2023 History of Present illness Narrative* Cole Bower APRN.MANAGER APPOINTMENT - 12/18/2022 1:39 PM EDT SUBJECTIVE Samantha [...] meal blood sugar. ~80 units daily Insulin Catarina, Disposable, (BD ULTRAFINE III MINI PEN) 31 [...] affected area twice daily. X 2 weeks. [place]-3 Fatty Acids-Vitamin E 1,000 mg cap Take [...] - 04/19/2014 (A priority) Diabetic Eye Exam ([facility]) - 04/05/2014 (A priority) Hyperlipidemia - 04/05/2014 [...] - 10/19/2022 Comment: Intermittent reflux Myasthenia Gravis ([facility]) - 07/30/2022 Type 2 Diabetes Mellitus With Diabetic Neuropathy, With Long-Term Current Use of Insulin ([facility]) - 07/30/2022 Bilateral Leg Edema - 07/30/2022 Comment: worse on left Dysuria - 07/30/2022 Comment: Follow up with gynecology 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 Chronic Hypoxemic Respiratory Failure ([facility]) - 12/09/2021 Pneumonia Due to Covid-19 Virus - 08/05/2021 Status Post Cataract Extraction and Insertion of Intraocular Lens of Right Eye - 06/03/2021 Combined 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 Cole Bower APRN-KENDAL documented in this encounterPeoples Hospital03-17-2023 Miscellaneous Notes* Telephone Encounter - Katherin Saeed [...] to pharmacy. No need to notify patient. [facility] documented in this encounterPeoples Hospital03-13-2023 History of Present illness Narrative* Ericka Zamora, OD - 12/14/2022 2:59 PM EDT 1. 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 Educated patient to continue care with primary care doctor and/or asphalt blender to maintain optimum levels as they are [...] 14, 2022 2:59 PM documented in this encounterPeoples Hospital03-13-2023 Instructions* Patient Instructions* Ericka Zamora, OD - 12/14/2022 2:54 PM EDT Use Systane drops 3-4 times daily Use Systane, Refresh or Blink gel nightly before bed in both eyes documented in this encounterPeoples Hospital02-15-2023 Miscellaneous Notes* Telephone Encounter - Maylin Delaney LPN - 11/18/2022 9:40 AM EST Rec'd approved from [facility] from 11/10/22 to 11/09/2023. Pt and pharmacy notified. * Telephone Encounter - Denise Alvarado APRN.CNS - 11/16/2022 4:14 PM EST Was this approved * Telephone Encounter - Rosana Ascencio Ma - 11/10/2022 12:52 PM EST Prior Authorization has been completed online at [employer] for [employer], will await response. FONTANEZ- [id number] Please keep encounter open until final decision [...] direction from Dr. Adams. Please advise at [phone]. documented in this encounterPeoples Hospital02-07-2023 Miscellaneous Notes* Telephone Encounter - Maylin Delaney [...] notify patient. Sophie Wolfe documented in this encounterPeoples Hospital01-23-2023 History of Present illness Narrative* Brooke Be [...] each nostril once daily as needed. Insulin Catarina, Disposable, (BD ULTRAFINE III MINI PEN) 31 [...] affected area twice daily. X 2 weeks. [place]-3 Fatty Acids-Vitamin E 1,000 mg cap Take [...] Z87.891 Brooke Be PA-C documented in this encounterPeoples Hospital01-19-2023 Miscellaneous Notes* Telephone Encounter - Jaylyn Vazquez [...] pen left of the trulicity. Patient uses [facility]. Tabatha Up LPN documented in this encounterPeoples Hospital01-18-2023 History of Present illness Narrative* Jerrica Duenas APRN.MANAGER APPOINTMENT - 10/21/2022 2:45 PM EST OFFICE VISIT [...] eggs/sausage - water/zero gatorade Lunch: skips Dinner: Byron OR macaroni / cheese with hamburger OR [...] each nostril once daily as needed. Insulin Catarina, Disposable, (BD ULTRAFINE III MINI PEN) 31 [...] affected area twice daily. X 2 weeks. [place]-3 Fatty Acids-Vitamin E 1,000 mg cap Take [...] (primary encounter diagnosis) Comment: UNABLE TO DOWNLOAD [employer] CGM due to system issues Reviewed CGM [...] BLD Jerrica Duenas CNP documented in this encounterPeoples Hospital01-18-2023 Miscellaneous Notes* Telephone Encounter - Alena Napier LPN - 10/21/2022 8:38 AM EST Left message for patient. Sooner appointments available today. Please reschedule in sooner slot if patient is able. documented in this encounterPeoples Hospital01-16-2023 History of Present illness Narrative* Rosana Navarro MD - 10/19/2022 8:10 AM EST Overnight oximetry on 2 L 10/14/2022: Total recording time 10 hours 83 minutes SPO2 less than or equal to 88% 2.7 minutes SPO2 less than or equal to 89% 4.3 minutes Lowest SPO2 83% documented in this encounterPeoples Hospital01-10-2023 Miscellaneous Notes* Telephone Encounter - Rossana Joseph - 10/13/2022 9:45 AM EST Called pt to reschedule 01/01/[address] Douglas. Patient wants to call back and schedule another time. documented in this encounterPeoples Hospital12-27-2022 Miscellaneous Notes* Telephone Encounter - Rosa Elena [...] date. * Tele[facility] En[facility] - 09/29/2022 1:04 PM EST Samantha Romero [...] calling: self Call patient at: at home [phone] (home) [phone] (cell) Was an appointment scheduled: No Closing statement: Results or non-symptom based questions: Thank you for calling [facility], your call will be returned within the next business day. Katherin [facility] Electronically signed by Katherin [facility] at 09/29/2022 1:09 PM EST documented in this encounterPeoples Hospital12-27-2022 History of Present illness Narrative* Pete Poole PA-C - 09/29/2022 11:30 AM EST Images from the original note were not included. [facility] NEW PATIENT CLINIC NOTE SERVICE DATE: 09/29/2022 SERVICE TIME: 11:30 AM NAME: Samantha Romero CHIEF COMPLAINT: Kidney Stone and UTI HISTORY OF PRESENT ILLNESS: Samantha Romero is a 57 year old female with PMH including Kidney Stones and dysuria presenting with admitted to [facility] in August 2022 The patient reports [...] each nostril once daily as needed. Insulin Catarina, Disposable, (BD ULTRAFINE III MINI PEN) 31 [...] Dx: I10 Hypertension flash glucose scanning reader (Open Energi TAYLOR 14 DAY READER) Use to check blood sugar 4 times daily hydrocortisone 2.5 % cream Apply 1 application to affected area twice daily. Location: hands and chest (Patient taking differently: Apply 1 application to affected area twice daily. Location: hands and chest Uses as needed) clotrimazole-betamethasone (LOTRISONE) cream Apply 1 application to affected area twice daily. X 2 weeks. [place]-3 Fatty Acids-Vitamin E 1,000 mg cap Take [...] ml IMAGING: Reviewed all imagine done a [facility] with patient no urologic concerns seen [...] Plan: Appointment with Pete. documented in this [facility]12-26-[facility]22 Miscellaneous Notes* Telephone Encounter - Sarina Adams [...] of Last Labs: 07/07/2022 documented [facility] this [facility] Miscellaneous Notes* Telephone Encounter - Mercedes Haji - 09/21/2022 12:05 PM EST Last OV: 09/18/22 Next OV: 12/18/22 documented [facility] this [facility] Miscellaneous Notes* Telephone Encounter - Mercedes Haji - 09/21/2022 12:03 PM EST Last OV: 09/18/22 Next OV: 12/18/22 documented in this encounterPeoples Hospital12-16-2022 Instructions* Patient Instructions* Sarina Adams MD - [...] getting extra fluid off. documented in this encounterPeoples Hospital12-16-2022 History of Present illness Narrative* Sarina Adams MD - 09/18/2022 2:31 PM EST This note was created using NeuStringriter. Subjective Samantha Romero is a 57 year [...] meal blood sugar. ~80 units daily Insulin Catarina, Disposable, (BD ULTRAFINE III MINI PEN) 31 [...] Dx: I10 Hypertension flash glucose scanning reader (Open Energi TAYLOR 14 DAY READER) Use to check blood sugar 4 times daily hydrocortisone 2.5 % cream Apply 1 application to affected area twice daily. Location: hands and chest estradiol (ESTRACE) 0.01 % (0.1 mg/gram) vaginal cream Use 3 g vaginally two times a week. clotrimazole-betamethasone (LOTRISONE) cream Apply 1 application to affected area twice daily. X 2 weeks. [place]-3 Fatty Acids-Vitamin E 1,000 mg cap Take [...] lipids. Sarina Adams MD documented in this encounterPeoples Hospital12-13-2022 Miscellaneous Notes* Telephone Encounter - Mercedes Haji Ma - 09/15/2022 9:48 AM EST One refill available at pharmacy documented in this encounterPeoples Hospital12-12-2022 History of Present illness Narrative* Ericka Zamora, OD - 09/14/2022 2:17 PM EST 1. 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 Educated patient to continue care with primary care doctor and/or asphalt blender to maintain optimum levels as they are [...] 14, 2022 2:17 PM documented in this encounterPeoples Hospital12-12-2022 Instructions* Patient Instructions* Ericka Zamora, OD - 09/14/2022 2:13 PM EST Use Systane Complete/Ultra or Refresh Relieva 2-3 times daily Use Systane, Refresh or Blink gel nightly before bed in both eyes documented in this encounterPeoples Hospital11-25-2022 History of Present illness Narrative* Monty Douglas [...] time. RTC 4 months. documented in this encounterPeoples Hospital11-21-2022 Miscellaneous Notes* Telephone Encounter - Vanessa Li RN - 08/24/2022 2:05 PM EST Contacted [facility] pharmacy and updated them of medication change as documented below. Vanessa Li RN * Telephone Encounter - Denise Alvarado APRN.CNS - 08/24/2022 1:15 PM EST Please let pharmacy know that antibiotic was changed. Discontinued levofloxacin and ordered Bactrim. documented in this encounterPeoples Hospital11-11-2022 Miscellaneous Notes* Telephone Encounter - Mercedes Haji Ma - 08/14/2022 1:06 PM EST Duplicate request documented in this encounterPeoples Hospital11-11-2022 Miscellaneous Notes* Telephone Encounter - Mercedes Haji [...] Thank you. Tianna Arthur documented in this encounterPeoples Hospital11-11-2022 Miscellaneous Notes* Telephone Encounter - Mercedes Haji [...] Thank you. Tianna Arthur documented in this encounterPeoples Hospital11-01-2022 Miscellaneous Notes* Telephone Encounter - Sarina Adams [...] you. Kristen Bronson LPN documented in this encounterPeoples Hospital10-18-2022 History of Present illness Narrative* Rosana Navarro MD - 07/21/2022 2:15 PM EDT Images from the original note were not included. . [facility] [place] Note Patient name: Samantha Romero PCP: Sarina [...] meal blood sugar. ~80 units daily Insulin Catarina, Disposable, (BD ULTRAFINE III MINI PEN) 31 [...] Dx: I10 Hypertension flash glucose scanning reader (Open Energi TAYLOR 14 DAY READER) Use to check blood sugar 4 times daily hydrocortisone 2.5 % cream Apply 1 application to affected area twice daily. Location: hands and chest estradiol (ESTRACE) 0.01 % (0.1 mg/gram) vaginal cream Use 3 g vaginally two times a week. clotrimazole-betamethasone (LOTRISONE) cream Apply 1 application to affected area twice daily. X 2 weeks. [place]-3 Fatty Acids-Vitamin E 1,000 mg cap Take [...] level is adequate Rosana Navarro MD [facility] [place] documented in this encounterPeoples Hospital10-14-2022 History of Present illness Narrative* Addi Andrade, [...] 17, 2022 3:28 PM documented in this encounterPeoples Hospital10-12-2022 Miscellaneous Notes* Telephone Encounter - Kristen Bronson [...] ordered 06/2022, sent to [facility], did she fruit or nut picker? * Telephone Encounter - Sophie Wolfe - [...] notify patient. Sophie Wolfe documented in this encounterPeoples Hospital09-30-2022 Instructions* Patient Instructions* Monty Douglas MD - [...] centered information available. [email or web address] documented in this encounterPeoples Hospital09-30-2022 History of Present illness Narrative* Monty Douglas MD - 07/03/2022 1:00 PM EDT HPI: This is Ms. Samantha Romero a 56 year old female from who [facility] with a chief complaint of [...] pain. With food. 30 tablet 1 Insulin Catarina, Disposable, (BD ULTRAFINE III MINI PEN) 31 [...] daily. X 2 weeks. 45 g 0 [place]-3 Fatty Acids-Vitamin E 1,000 mg cap Take [...] (H) 4.3 - 5.6 % Final Comment: Citizen Of [place] Diabetes Association guidelines indicate that patients with [...] clinical response to mestinon. documented in this encounterPeoples Hospital09-23-2022 History of Present illness Narrative* Sarina Adams MD - 06/26/2022 3:40 PM EDT This note was created using NeuStringriter. Subjective Samantha Romero is a 56 year [...] as needed for pain. With food. Insulin Catarina, Disposable, (BD ULTRAFINE III MINI PEN) 31 [...] Dx: I10 Hypertension flash glucose scanning reader (Open Energi TAYLOR 14 DAY READER) Use to check blood sugar 4 times daily hydrocortisone 2.5 % cream Apply 1 application to affected area twice daily. Location: hands and chest clotrimazole-betamethasone (LOTRISONE) cream Apply 1 application to affected area twice daily. X 2 weeks. [place]-3 Fatty Acids-Vitamin E 1,000 mg cap Take 1 capsule by mouth twice daily. EYE DROPS [facility] cystene estradiol (ESTRACE) 0.01 % (0.1 mg/gram) [...] indicated. Sarina Adams MD documented in this encounterPeoples Hospital09-12-2022 History of Present illness Narrative* Ericka Zamora, OD - 06/15/2022 12:52 PM EDT 1. Type 2 diabetes mellitus with both eyes affected by moderate nonproliferative retinopathy with macular edema, with long-term current use of insulin ([facility]) Educated patient to continue care with primary care doctor and/or asphalt blender to maintain optimum levels as they are [...] 15, 2022 12:52 PM documented in this encounterPeoples Hospital09-12-2022 Miscellaneous Notes* Telephone Encounter - Jarrod Buckley Ma - 06/15/2022 10:26 AM EDT LIDIA: 04/01/2022 sensor Last refill: 06/11/2021 QTY: 2 Refills: 5 Crestor Last refill: 05/22/2021 QTY: 30 Refills: 11 documented in this encounterPeoples Hospital09-12-2022 Miscellaneous Notes* Telephone Encounter - Jarrod Buckley Ma - 06/15/2022 9:36 AM EDT LIDIA: 04/01/2022 lancets Last refill: 01/14/2021 QTY: 100 Refills: 11 documented in this encounterPeoples Hospital09-06-2022 Miscellaneous Notes* Telephone Encounter - Maylin Delaney [...] notify patient. Nadine Hinkle documented in this encounterPeoples Hospital08-30-2022 History of Present illness Narrative* Radha Warner [...] 02, 2022 1:04 PM. documented in this encounterPeoples Hospital08-09-2022 Miscellaneous Notes* Telephone Encounter - Sarina Adams [...] advise. Brooke Price Pss documented in this encounterPeoples Hospital07-29-2022 Miscellaneous Notes* Telephone Encounter - Maylin Delaney [...] pharmacy. No need to notify patient. Katherin [facility] documented in this encounterPeoples Hospital07-11-2022 Miscellaneous Notes* Telephone Encounter - Brooke Be PA-C - 04/13/2022 11:46 AM EDT Script for oxygen printed. Please FAX with oximetry 04/02/2022 Thanks, Frida * Telephone Encounter - Gisella Duque RN - 04/13/2022 11:41 AM EDT Patient requesting order for oxygen be faxed to [facility] in [place]. States they came to fruit or nut picker her oxygen today and if she still needs it they need a new prescription. documented in this encounterPeoples Hospital06-29-2022 History of Present illness Narrative* Sarina Adams MD - 04/01/2022 5:38 PM EDT This note was created using MyGrove Medi[employer]. Subjective Samantha Romero is a 56 year [...] affected area twice daily. X 2 weeks. [place]-3 Fatty Acids-Vitamin E (FISH OIL) 1,000 mg cap Take 1 capsule by mouth twice daily. blood sugar diagnostic (FREESTYLE LITE STRIPS) test strip Test blood sugar(s) 4 times daily. Dx: Other DM Code E11.40 Insulin: Yes flash glucose sensor (FREESTYLE TAYLOR 14 DAY SENSOR) kit Use to check blood sugar 4 times daily. Please give 2 sensors per refill EYE DROPS [facility] cystene flash glucose sensor (FREESTYLE TAYLOR 14 DAY SENSOR) kit Use to check blood sugar 4 times daily Miscellaneous Medical Supply (BLOOD PRESSURE CUFF) 1 Each as needed. Blood pressure Monitor and Cuff, use as directed. Dx: I10 Hypertension Insulin Catarina, Disposable, (BD ULTRAFINE III MINI PEN) 31 [...] Abs Lymph 1.00 - 4.00 k/uL 1.55 White% % 6.9 Abs White <0.87 k/uL 0.49 Eosin% % 3.5 Abs [...] indicated. Sarina Adams MD documented in this encounterPeoples Hospital06-24-2022 Miscellaneous Notes* Telephone Encounter - Sarina Adams [...] advise. Fátima Velasquez LPN documented in this encounterPeoples Hospital06-23-2022 Miscellaneous Notes* Telephone Encounter - Maylin Delaney [...] can make sure covered. documented in this encounterPeoples Hospital06-22-2022 Miscellaneous Notes* Telephone Encounter - Vanessa Hinkle - 03/25/2022 8:08 AM EDT Patient completing labs 03/26 and has appt. With PCP on 04/01. Unable to close this as medications are attached. * Telephone Encounter - Maylin Delaney LPN - 03/24/2022 2:52 PM EDT Last seen pcp 01/30/22. Please call pt to arrange lab appt and follow up with pcp or HOSPICE CARE SALES CONSULTANT. * Telephone Encounter - Corina Hinkle - [...] notify patient. Corina Hinkle documented in this encounterPeoples Hospital06-08-2022 Miscellaneous Notes* Telephone Encounter - Sarina Adams [...] you. Alena Napier LPN documented in this encounterPeoples Hospital06-08-2022 Miscellaneous Notes* Telephone Encounter - Alena Napier LPN - 03/11/2022 1:50 PM EDT This request is being addressed in another encounter. documented in this encounterPeoples Hospital05-25-2022 History of Present illness Narrative* Michael Haro [...] she does have neuropathy. [facility]is [facility]. Past medical history prescription medication [...] use as directed. Dx: I10 Hypertension Insulin Catarina, Disposable, (BD ULTRAFINE III MINI PEN) 31 [...] affected area twice daily. X 2 weeks. [place]-3 Fatty Acids-Vitamin E (FISH OIL) 1,000 mg cap Take 1 capsule by mouth twice daily. EYE DROPS [facility] cystene estradiol (ESTRACE) 0.01 % (0.1 mg/gram) [...] planof care. This note was generated using PodPoster software. It may contain errors in wording, punctuation, or spelling. Michael Haro APRN.KENDAL documented in this encounterPeoples Hospital05-06-2022 History of Present illness Narrative* Ericka Zamora, [...] edema, with long-term current use of insulin ([facility]) Continue follow-up with Dr. Connors 3. Pseudophakia of both eyes Monitor Follow-up in 1 month Ericka Zamora, OD February 06, 2022 2:22 PM documented in this encounterPeoples Hospital05-02-2022 Miscellaneous Notes* Telephone Encounter - Maylin Delaney LPN - 02/02/2022 10:54 AM EDT Closed 02/02/2022 10:32 AM Case ID: [id number] Close reason: Prior Authorization not required for patient/medication Note from payer: No Authorization Required.No authorization is required for the medication requested. Payer: [employer] * Telephone Encounter - Maylin Delaney LPN - 02/02/2022 9:50 AM EDT Electronic PA completed for elio documented in this encounterPeoples Hospital04-29-2022 History of Present illness Narrative* Ericka Zamora, [...] 30, 2022 3:44 PM documented in this encounterPeoples Hospital04-29-2022 Instructions* Patient Instructions* Ericka Zamora, OD - 01/30/2022 3:40 PM EDT Call office with any sudden double vision, eye pain, eye turn(lazy eye) or loss in vision If any of the above symptoms happens after hours or on weekend, go to emergency room Otherwise, follow-up in 1 week documented in this encounterPeoples Hospital04-29-2022 History of Present illness Narrative* Sarina Adams MD - 01/30/2022 2:09 PM EDT This note was created using NeuStringriter. Subjective Samantha Romero is a 56 year [...] use as directed. Dx: I10 Hypertension Insulin Catarina, Disposable, (BD ULTRAFINE III MINI PEN) 31 [...] affected area twice daily. X 2 weeks. [place]-3 Fatty Acids-Vitamin E (FISH OIL) 1,000 mg [...] Level: 4 - Moderate [facility] Miscellaneous Notes* Telephone Encounter - Sarina Adams [...] notify patient. Nicole Hinkle [facility] Miscellaneous Notes* Telephone Encounter - Jaylyn Vazquez [...] you. Jaylyn Vazquez LPN [facility] Miscellaneous Notes* Telephone Encounter - Jaylyn Vazquez [...] you. Jaylyn Vazquez LPN [facility] Miscellaneous Notes* Telephone Encounter - Jaylyn Vazquez LPN - 12/29/2021 4:11 PM EDT Patient has been identified by name and date of : Yes Patient phones for refill(s): Pending Prescriptions Disp Refills FREESTMETRIXWARE TAYLOR 14 DAY SENSOR KIT 2 Kit [...] has 3 days left. documented [facility] encounterPe[facility]03[facility] History of Present illness Narrative* Ericka Zamora, [...] continue care with primary care doctor and/or asphalt blender to maintain optimum levels as they are [...] 25, 2021 2:15 PM documented [facility] encounterPe[facility]22 Miscellaneous Notes* Telephone Encounter - Sarina Adams MD - 11/16/2021 1:29 AM EST The following approved medication requests have been transmitted electronically. Signed Prescriptions Disp Refills hydroCHLOROthiazide 12.5 mg capsule 30 capsule 11 Sig: Take 1 capsule by mouth once daily. UYKO: No Authorizing Provider: SARINA ADAMS MD * [...] you. Alicja Robin RN documented in [facility] encounterPe[facility]09-[facility] NotePost Operative Note: Post-Procedure Diagnosis: 1. Combined Form Age Related Cataract Left Eye Procedure: 1. Cataract Extraction with Intraocular Lens Implant Left Eye Surgeon: Steve Mcmillan MD Resident/Fellow/Other [employer]ombstone Polisher: None Estimated Blood Loss (mL): none Specimen: [...] Completion Last Updated: 12-Jun-2021 11:49 by Steve Mcmillan)[facility] 06-12-2021 NoteHistory & Physical Reviewed: /Lactating: Are [...] Completion Last Updated: 12-Jun-2021 10:31 by Steve Mcmillan)[facility] 05-29-2021 NotePost Operative Note: Post-Procedure Diagnosis: 1. Combined Form Age Related Cataract Right eye 2. Type 2 Diabetes with both eyes affected by Severe Non proliferative Retinopathy without Macular Edema Procedure: 1. Cataract Extraction with Intraocular Lens Implant Right Eye Surgeon: Steve Mcmillan MD Resident/Fellow/Other Tombstone Polisher: None Estimated Blood Loss (mL): none Specimen: [...] Completion Last Updated: 29-May-2021 11:01 by Steve Mcmillan)[facility] 05-29-2021 NoteHistory & Physical Reviewed: /Lactating: Are [...] Completion Last Updated: 29-May-2021 09:03 by Steve Mcmillan)[facility] 05-09-2021 History of Past illness Narrative* Problem Noted Date Resolved Date Combined 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-related cataract of right eye 05/09/2021 06/03/2021 documented as of this encounter (statuses as of 12/25/2021) [facility] Narrative* Problem Noted Date Resolved Date Combined 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-related cataract of right eye 05/09/2021 06/03/2021 documented as of this encounter (statuses as of 12/29/2021) [facility]ative* Problem Noted Date Resolved Date Combined 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-related cataract of right eye 05/09/2021 06/03/2021 documented as of this encounter (statuses as of 12/29/2021) [facility] Narrative* Problem Noted Date Resolved Date Combined 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-related cataract of right eye 05/09/2021 06/03/2021 documented as of this encounter (statuses as of 12/29/2021) [facility] Narrative* Problem Noted Date Resolved Date Combined 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-related cataract of right eye 05/09/2021 06/03/2021 documented as of this encounter (statuses as of 12/29/2021) [address]06-2021 History of Past illness Narrative* Problem Noted Date Resolved Date Combined 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-related cataract of right eye 05/09/2021 06/03/2021 documented as of this encounter (statuses as of 12/31/2021) [facility]* Problem Noted Date Resolved Date Combined 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-related cataract of right eye 05/09/2021 06/03/2021 documented as of this encounter (statuses as of 01/30/2022) [facility]* Problem Noted Date Resolved Date Combined 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-related cataract of right eye 05/09/2021 06/03/2021 documented as of this encounter (statuses as of 01/30/2022) [facility]* Problem Noted Date Resolved Date Combined 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-related cataract of right eye 05/09/2021 06/03/2021 documented as of this encounter (statuses as of 02/02/2022) [address]06-2021 History of Past illness Narrative* Problem Noted Date Resolved Date Combined 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-related cataract of right eye 05/09/2021 06/03/2021 documented as of this encounter (statuses as of 02/06/2022) [address]06-2021 History of Past illness Narrative* Problem Noted Date Resolved Date Combined 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-related cataract of right eye 05/09/2021 06/03/2021 documented as of this encounter (statuses as of 02/25/2022) [address]06-2021 History of Past illness Narrative* Problem Noted Date Resolved Date Combined 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-related cataract of right eye 05/09/2021 06/03/2021 documented as of this encounter (statuses as of 03/11/2022) [address]06-2021 History of Past illness Narrative* Problem Noted Date Resolved Date Combined 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-related cataract of right eye 05/09/2021 06/03/2021 documented as of this encounter (statuses as of 03/11/2022) [address]06-2021 History of Past illness Narrative* Problem Noted Date Resolved Date Combined 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-related cataract of right eye 05/09/2021 06/03/2021 documented as of this encounter (statuses as of 03/25/2022) [facility]* Problem Noted Date Resolved Date Combined 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-related cataract of right eye 05/09/2021 06/03/2021 documented as of this encounter (statuses as of 03/26/2022) [facility]* Problem Noted Date Resolved Date Combined 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-related cataract of right eye 05/09/2021 06/03/2021 documented as of this encounter (statuses as of 03/27/2022) [facility]* Problem Noted Date Resolved Date Combined 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-related cataract of right eye 05/09/2021 06/03/2021 documented as of this encounter (statuses as of 04/13/2022) [facility]* Problem Noted Date Resolved Date Combined 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-related cataract of right eye 05/09/2021 06/03/2021 documented as of this encounter (statuses as of 05/01/2022) [facility]* Problem Noted Date Resolved Date Combined 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-related cataract of right eye 05/09/2021 06/03/2021 documented as of this encounter (statuses as of 05/13/2022) [facility]* Problem Noted Date Resolved Date Combined 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-related cataract of right eye 05/09/2021 06/03/2021 documented as of this encounter (statuses as of 05/27/2022) [facility]* Problem Noted Date Resolved Date Combined 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-related cataract of right eye 05/09/2021 06/03/2021 documented as of this encounter (statuses as of 06/02/2022) [facility]* Problem Noted Date Resolved Date Combined 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-related cataract of right eye 05/09/2021 06/03/2021 documented as of this encounter (statuses as of 06/10/2022) [facility]* Problem Noted Date Resolved Date Combined 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-related cataract of right eye 05/09/2021 06/03/2021 documented as of this encounter (statuses as of 06/15/2022) [facility]* Problem Noted Date Resolved Date Combined 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-related cataract of right eye 05/09/2021 06/03/2021 documented as of this encounter (statuses as of 06/15/2022) [facility]* Problem Noted Date Resolved Date Combined 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-related cataract of right eye 05/09/2021 06/03/2021 documented as of this encounter (statuses as of 06/16/2022) [facility]* Problem Noted Date Resolved Date Combined 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-related cataract of right eye 05/09/2021 06/03/2021 documented as of this encounter (statuses as of 06/16/2022) [facility]* Problem Noted Date Resolved Date Combined 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-related cataract of right eye 05/09/2021 06/03/2021 documented as of this encounter (statuses as of 07/03/2022) [facility] Problem Noted Date Resolved Date Combined 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-related cataract of right eye 05/09/2021 06/03/2021 documented as of this encounter (statuses as of 07/15/2022) [facility]* Problem Noted Date Resolved Date Combined 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-related cataract of right eye 05/09/2021 06/03/2021 documented as of this encounter (statuses as of 07/18/2022) [facility]* Problem Noted Date Resolved Date Combined 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-related cataract of right eye 05/09/2021 06/03/2021 documented as of this encounter (statuses as of 07/21/2022) [address]06-2021 History of Past illness Narrative* Problem Noted Date Resolved Date Combined 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-related cataract of right eye 05/09/2021 06/03/2021 documented as of this encounter (statuses as of 07/31/2022) [facility] Problem Noted Date Resolved Date Combined 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-related cataract of right eye 05/09/2021 06/03/2021 documented as of this encounter (statuses as of 08/05/2022) [facility]* Problem Noted Date Resolved Date Combined 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-related cataract of right eye 05/09/2021 06/03/2021 documented as of this encounter (statuses as of 08/14/2022) [facility]* Problem Noted Date Resolved Date Combined 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-related cataract of right eye 05/09/2021 06/03/2021 documented as of this encounter (statuses as of 08/14/2022) [facility]* Problem Noted Date Resolved Date Combined 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-related cataract of right eye 05/09/2021 06/03/2021 documented as of this encounter (statuses as of 08/14/2022) [facility]* Problem Noted Date Resolved Date Combined 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-related cataract of right eye 05/09/2021 06/03/2021 documented as of this encounter (statuses as of 08/25/2022) [facility]* Problem Noted Date Resolved Date Combined 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-related cataract of right eye 05/09/2021 06/03/2021 documented as of this encounter (statuses as of 08/28/2022) [facility]* Problem Noted Date Resolved Date Combined 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-related cataract of right eye 05/09/2021 06/03/2021 documented as of this encounter (statuses as of 09/11/2022) [facility]* Problem Noted Date Resolved Date Combined 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-related cataract of right eye 05/09/2021 06/03/2021 documented as of this encounter (statuses as of 09/14/2022) [address]06-2021 History of Past illness Narrative* Problem Noted Date Resolved Date Combined 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-related cataract of right eye 05/09/2021 06/03/2021 documented as of this encounter (statuses as of 09/15/2022) [facility]* Problem Noted Date Resolved Date Combined 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-related cataract of right eye 05/09/2021 06/03/2021 documented as of this encounter (statuses as of 09/21/2022) [facility]* Problem Noted Date Resolved Date Combined 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-related cataract of right eye 05/09/2021 06/03/2021 documented as of this encounter (statuses as of 09/21/2022) [address]06-2021 History of Past illness Narrative* Problem Noted Date Resolved Date Combined 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-related cataract of right eye 05/09/2021 06/03/2021 documented as of this encounter (statuses as of 09/27/2022) [facility]* Problem Noted Date Resolved Date Combined 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-related cataract of right eye 05/09/2021 06/03/2021 documented as of this encounter (statuses as of 10/05/2022) [address]06-2021 History of Past illness Narrative* Problem Noted Date Resolved Date Combined 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-related cataract of right eye 05/09/2021 06/03/2021 documented as of this encounter (statuses as of 10/05/2022) [address]06-2021 History of Past illness Narrative* Problem Noted Date Resolved Date Combined 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-related cataract of right eye 05/09/2021 06/03/2021 documented as of this encounter (statuses as of 10/05/2022) [address]06-2021 History of Past illness Narrative* Problem Noted Date Resolved Date Combined 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-related cataract of right eye 05/09/2021 06/03/2021 documented as of this encounter (statuses as of 10/19/2022) [address]06-2021 History of Past illness Narrative* Problem Noted Date Resolved Date Combined 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-related cataract of right eye 05/09/2021 06/03/2021 documented as of this encounter (statuses as of 10/19/2022) [facility] Problem Noted Date Resolved Date Combined 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-related cataract of right eye 05/09/2021 06/03/2021 documented as of this encounter (statuses as of 10/22/2022) [facility]* Problem Noted Date Resolved Date Combined 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-related cataract of right eye 05/09/2021 06/03/2021 documented as of this encounter (statuses as of 10/22/2022) [facility]* Problem Noted Date Resolved Date Combined 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-related cataract of right eye 05/09/2021 06/03/2021 documented as of this encounter (statuses as of 10/23/2022) [facility]* Problem Noted Date Resolved Date Combined 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-related cataract of right eye 05/09/2021 06/03/2021 documented as of this encounter (statuses as of 10/27/2022) [facility]* Problem Noted Date Resolved Date Combined 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-related cataract of right eye 05/09/2021 06/03/2021 documented as of this encounter (statuses as of 11/11/2022) [facility]* Problem Noted Date Resolved Date Combined 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-related cataract of right eye 05/09/2021 06/03/2021 documented as of this encounter (statuses as of 11/18/2022) [facility]* Problem Noted Date Resolved Date Combined 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-related cataract of right eye 05/09/2021 06/03/2021 documented as of this encounter (statuses as of 12/07/2022) [facility]* Problem Noted Date Resolved Date Combined 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-related cataract of right eye 05/09/2021 06/03/2021 documented as of this encounter (statuses as of 12/14/2022) [address]06-2021 History of Past illness Narrative* Problem Noted Date Resolved Date Combined 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-related cataract of right eye 05/09/2021 06/03/2021 documented as of this encounter (statuses as of 12/18/2022) [address]06-2021 History of Past illness Narrative* Problem Noted Date Resolved Date Combined 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-related cataract of right eye 05/09/2021 06/03/2021 documented as of this encounter (statuses as of 12/18/2022) [facility]* Problem Noted Date Resolved Date Combined 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-related cataract of right eye 05/09/2021 06/03/2021 documented as of this encounter (statuses as of 12/18/2022) [address]06-2021 History of Past illness Narrative* Problem Noted Date Resolved Date Combined 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-related cataract of right eye 05/09/2021 06/03/2021 documented as of this encounter (statuses as of 12/25/2022) [facility]* Problem Noted Date Resolved Date Combined 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-related cataract of right eye 05/09/2021 06/03/2021 documented as of this encounter (statuses as of 12/25/2022) [facility]* Problem Noted Date Resolved Date Combined forms of age-related cataract of right eye 05/09/2021 06/03/2021 documented as of this encounter (statuses as of 12/25/2022) [address]06-2021 History of Past illness Narrative* Problem Noted Date Resolved Date Combined forms of age-related cataract of right eye 05/09/2021 06/03/2021 documented as of this encounter (statuses as of 12/28/2022) [address]06-2021 History of Past illness Narrative* Problem Noted Date Resolved Date Combined forms of age-related cataract of right eye 05/09/2021 06/03/2021 documented as of this encounter (statuses as of 01/11/2023) [address]06-2021 History of Past illness Narrative* Problem Noted Date Resolved Date Combined forms of age-related cataract of right eye 05/09/2021 06/03/2021 documented as of this encounter (statuses as of 01/16/2023) [facility]* Problem Noted Date Resolved Date Combined forms of age-related cataract of right eye 05/09/2021 06/03/2021 documented as of this encounter (statuses as of 01/19/2023) [facility]* Problem Noted Date Resolved Date Combined forms of age-related cataract of right eye 05/09/2021 06/03/2021 documented as of this encounter (statuses as of 01/22/2023) [facility]* Problem Noted Date Resolved Date Combined forms of age-related cataract of right eye 05/09/2021 06/03/2021 documented as of this encounter (statuses as of 01/25/2023) [facility]* Problem Noted Date Resolved Date Combined forms of age-related cataract of right eye 05/09/2021 06/03/2021 documented as of this encounter (statuses as of 01/25/2023) [facility]* Problem Noted Date Resolved Date Combined forms of age-related cataract of right eye 05/09/2021 06/03/2021 documented as of this encounter (statuses as of 02/04/2023) [facility]* Problem Noted Date Resolved Date Combined forms of age-related cataract of right eye 05/09/2021 06/03/2021 documented as of this encounter (statuses as of 02/09/2023) [facility]* Problem Noted Date Resolved Date Combined forms of age-related cataract of right eye 05/09/2021 06/03/2021 documented as of this encounter (statuses as of 02/11/2023) [facility]* Problem Noted Date Resolved Date Combined forms of age-related cataract of right eye 05/09/2021 06/03/2021 documented as of this encounter (statuses as of 02/16/2023) [facility]* Problem Noted Date Resolved Date Combined forms of age-related cataract of right eye 05/09/2021 06/03/2021 documented as of this encounter (statuses as of 02/16/2023) [facility]* Problem Noted Date Resolved Date Combined forms of age-related cataract of right eye 05/09/2021 06/03/2021 documented as of this encounter (statuses as of 02/17/2023) [facility]* Problem Noted Date Resolved Date Combined forms of age-related cataract of right eye 05/09/2021 06/03/2021 documented as of this encounter (statuses as of 03/04/2023) [facility]* Problem Noted Date Resolved Date Combined forms of age-related cataract of right eye 05/09/2021 06/03/2021 documented as of this encounter (statuses as of 03/10/2023) [facility]* Problem Noted Date Resolved Date Combined forms of age-related cataract of right eye 05/09/2021 06/03/2021 documented as of this encounter (statuses as of 03/10/2023) [facility]* Problem Noted Date Resolved Date Combined forms of age-related cataract of right eye 05/09/2021 06/03/2021 documented as of this encounter (statuses as of 03/22/2023) [facility]* Problem Noted Date Resolved Date Combined forms of age-related cataract of right eye 05/09/2021 06/03/2021 documented as of this encounter (statuses as of 03/25/2023) [facility]* Problem Noted Date Resolved Date Combined forms of age-related cataract of right eye 05/09/2021 06/03/2021 documented as of this encounter (statuses as of 03/26/2023) [place] [id number] History of Past illness Narrative* Problem Noted Date Resolved Date Combined forms of age-related cataract of right eye 05/09/2021 06/03/2021 documented as of this encounter (statuses as of 03/31/2023) [facility]* Problem Noted Date Diagnosed Date Resolved Date Combined forms of age-relate d cataract of right eye 05/09/2021 06/03/2021 documented as of this encounter (statuses as of 04/12/2023) [facility]* Problem Noted Date Diagnosed Date Resolved Date Combined forms of age-relate d cataract of right eye 05/09/2021 06/03/2021 documented as of this encounter (statuses as of 04/15/2023) [facility]* Problem Noted Date Diagnosed Date Resolved Date Combined forms of age-relate d cataract of right eye 05/09/2021 06/03/2021 documented as of this encounter (statuses as of 04/20/2023) [facility]* Problem Noted Date Diagnosed Date Resolved Date Combined forms of age-relate d cataract of right eye 05/09/2021 06/03/2021 documented as of this encounter (statuses as of 04/20/2023) [facility]* Problem Noted Date Diagnosed Date Resolved Date Combined forms of age-relate d cataract of right eye 05/09/2021 06/03/2021 documented as of this encounter (statuses as of 04/20/2023) [facility]arrative* Problem Noted Date Diagnosed Date Resolved Date Combined forms of age-relate d cataract of right eye 05/09/2021 06/03/2021 documented as of this encounter (statuses as of 04/21/2023) [facility] Narrative* Problem Noted Date Diagnosed Date Resolved Date Combined forms of age-relate d cataract of right eye 05/09/2021 06/03/2021 documented as of this encounter (statuses as of 04/21/2023) [address]21 History of Past illness Narrative* Problem Noted Date Diagnosed Date Resolved Date Combined forms of age-relate d cataract of right eye 05/09/2021 06/03/2021 documented as of this encounter (statuses as of 04/29/2023) [facility]* Problem Noted Date Diagnosed Date Resolved Date Combined forms of age-relate d cataract of right eye 05/09/2021 06/03/2021 documented as of this encounter (statuses as of 05/11/2023) [facility]* Problem Noted Date Diagnosed Date Resolved Date Combined forms of age-relate d cataract of right eye 05/09/2021 06/03/2021 documented as of this encounter (statuses as of 05/11/2023) [facility] History of Past illness Narrative* Problem Noted Date Diagnosed Date Resolved Date Combined forms of age-relate d cataract of right eye 05/09/2021 06/03/2021 documented as of this encounter (statuses as of 05/11/2023) [facility] History of Past illness Narrative* Problem Noted Date Diagnosed Date Resolved Date Combined forms of age-relate d cataract of right eye 05/09/2021 06/03/2021 documented as of this encounter (statuses as of 05/12/2023) [facility] History of Past illness Narrative* Problem Noted Date Diagnosed Date Resolved Date Combined forms of age-relate d cataract of right eye 05/09/2021 06/03/2021 documented as of this encounter (statuses as of 05/15/2023) [facility] History of Past illness Narrative* Problem Noted Date Diagnosed Date Resolved Date Combined forms of age-relate d cataract of right eye 05/09/2021 06/03/2021 documented as of this encounter (statuses as of 05/18/2023) [facility] History of Past illness Narrative* Problem Noted Date Diagnosed Date Resolved Date Combined forms of age-relate d cataract of right eye 05/09/2021 06/03/2021 documented as of this encounter (statuses as of 05/25/2023) [facility] History of Past illness Narrative* Problem Noted Date Diagnosed Date Resolved Date Combined forms of age-relate d cataract of right eye 05/09/2021 06/03/2021 documented as of this encounter (statuses as of 05/25/2023) [facility] History of Past illness Narrative* Problem Noted Date Diagnosed Date Resolved Date Combined forms of age-relate d cataract of right eye 05/09/2021 06/03/2021 documented as of this encounter (statuses as of 06/22/2023) [facility] History of Past illness Narrative* Problem Noted Date Diagnosed Date Resolved Date Combined forms of age-relate d cataract of right eye 05/09/2021 06/03/2021 documented as of this encounter (statuses as of 06/25/2023) [facility] History of Past illness Narrative* Problem Noted Date Diagnosed Date Resolved Date Combined forms of age-relate d cataract of right eye 05/09/2021 06/03/2021 documented as of this encounter (statuses as of 06/29/2023) [facility] History of Past illness Narrative* Problem Noted Date Diagnosed Date Resolved Date Combined forms of age-relate d cataract of right eye 05/09/2021 06/03/2021 documented as of this encounter (statuses as of 07/02/2023) [facility] History of Past illness Narrative* Problem Noted Date Diagnosed Date Resolved Date Combined forms of age-relate d cataract of right eye 05/09/2021 06/03/2021 documented as of this encounter (statuses as of 07/03/2023) [facility] History of Past illness Narrative* Problem Noted Date Diagnosed Date Resolved Date Combined forms of age-relate d cataract of right eye 05/09/2021 06/03/2021 documented as of this encounter (statuses as of 07/09/2023) [facility] History of Past illness Narrative* Problem Noted Date Diagnosed Date Resolved Date Combined forms of age-relate d cataract of right eye 05/09/2021 06/03/2021 documented as of this encounter (statuses as of 07/14/2023) [facility] History of Past illness Narrative* Problem Noted Date Diagnosed Date Resolved Date Combined forms of age-relate d cataract of right eye 05/09/2021 06/03/2021 documented as of this encounter (statuses as of 07/14/2023) [facility] History of Past illness Narrative* Problem Noted Date Diagnosed Date Resolved Date Combined forms of age-relate d cataract of right eye 05/09/2021 06/03/2021 documented as of this encounter (statuses as of 07/22/2023) [facility] History of Past illness Narrative* Problem Noted Date Diagnosed Date Resolved Date Combined forms of age-relate d cataract of right eye 05/09/2021 06/03/2021 documented as of this encounter (statuses as of 07/27/2023) [facility] History of Past illness Narrative* Problem Noted Date Diagnosed Date Resolved Date Combined forms of age-relate d cataract of right eye 05/09/2021 06/03/2021 documented as of this encounter (statuses as of 07/27/2023) [facility] History of Past illness Narrative* Problem Noted Date Diagnosed Date Resolved Date Combined forms of age-relate d cataract of right eye 05/09/2021 06/03/2021 documented as of this encounter (statuses as of 07/30/2023) [facility] History of Past illness Narrative* Problem Noted Date Diagnosed Date Resolved Date Combined forms of age-relate d cataract of right eye 05/09/2021 06/03/2021 documented as of this encounter (statuses as of 08/08/2023) [facility] History of Past illness Narrative* Problem Noted Date Diagnosed Date Resolved Date Combined forms of age-relate d cataract of right eye 05/09/2021 06/03/2021 documented as of this encounter (statuses as of 08/08/2023) [facility] History of Past illness Narrative* Problem Noted Date Diagnosed Date Resolved Date Combined forms of age-relate d cataract of right eye 05/09/2021 06/03/2021 documented as of this encounter (statuses as of 08/13/2023) [facility] History of Past illness Narrative* Problem Noted Date Diagnosed Date Resolved Date Combined forms of age-relate d cataract of right eye 05/09/2021 06/03/2021 documented as of this encounter (statuses as of 09/04/2023) [facility] History of Past illness Narrative* Problem Noted Date Diagnosed Date Resolved Date Combined forms of age-relate d cataract of right eye 05/09/2021 06/03/2021 documented as of this encounter (statuses as of 09/15/2023) [facility] History of Past illness Narrative* Problem Noted Date Diagnosed Date Resolved Date Combined forms of age-relate d cataract of right eye 05/09/2021 06/03/2021 documented as of this encounter (statuses as of 09/15/2023) [facility] History of Past illness Narrative* Problem Noted Date Diagnosed Date Resolved Date Combined forms of age-relate d cataract of right eye 05/09/2021 06/03/2021 documented as of this encounter (statuses as of 09/15/2023) [facility] History of Past illness Narrative* Problem Noted Date Diagnosed Date Resolved Date Combined forms of age-relate d cataract of right eye 05/09/2021 06/03/2021 documented as of this encounter (statuses as of 09/16/2023) [facility] History of Past illness Narrative* Problem Noted Date Diagnosed Date Resolved Date Combined forms of age-relate d cataract of right eye 05/09/2021 06/03/2021 documented as of this encounter (statuses as of 11/09/2023) [facility] History of Past illness Narrative* Problem Noted Date Diagnosed Date Resolved Date Combined forms of age-relate d cataract of right eye 05/09/2021 06/03/2021 documented as of this encounter (statuses as of 11/10/2023) [facility] History of Past illness Narrative* Problem Noted Date Diagnosed Date Resolved Date Combined forms of age-relate d cataract of right eye 05/09/2021 06/03/2021 documented as of this encounter (statuses as of 11/15/2023) [facility] History of Past illness Narrative* Problem Noted Date Diagnosed Date Resolved Date Combined forms of age-relate d cataract of right eye 05/09/2021 06/03/2021 documented as of this encounter (statuses as of 11/15/2023) [facility] History of Past illness Narrative* Problem Noted Date Diagnosed Date Resolved Date Combined forms of age-relate d cataract of right eye 05/09/2021 06/03/2021 documented as of this encounter (statuses as of 11/15/2023) [facility] History of Past illness Narrative* Problem Noted Date Diagnosed Date Resolved Date Combined forms of age-relate d cataract of right eye 05/09/2021 06/03/2021 documented as of this encounter (statuses as of 11/16/2023) [facility] History of Past illness Narrative* Problem Noted Date Diagnosed Date Resolved Date Combined forms of age-relate d cataract of right eye 05/09/2021 06/03/2021 documented as of this encounter (statuses as of 11/16/2023) [facility] History of Past illness Narrative* Problem Noted Date Diagnosed Date Resolved Date Combined forms of age-relate d cataract of right eye 05/09/2021 06/03/2021 documented as of this encounter (statuses as of 12/02/2023) [facility] History of Past illness Narrative* Problem Noted Date Diagnosed Date Resolved Date Combined forms of age-relate d cataract of right eye 05/09/2021 06/03/2021 documented as of this encounter (statuses as of 12/06/2023) [facility] History of Past illness Narrative* Problem Noted Date Diagnosed Date Resolved Date Combined forms of age-relate d cataract of right eye 05/09/2021 06/03/2021 documented as of this encounter (statuses as of 12/07/2023) [facility] History of Past illness Narrative* Problem Noted Date Diagnosed Date Resolved Date Combined forms of age-relate d cataract of right eye 05/09/2021 06/03/2021 documented as of this encounter (statuses as of 12/08/2023) [facility] History of Past illness Narrative* Problem Noted Date Diagnosed Date Resolved Date Combined forms of age-relate d cataract of right eye 05/09/2021 06/03/2021 documented as of this encounter (statuses as of 12/10/2023) [facility] History of Past illness Narrative* Problem Noted Date Diagnosed Date Resolved Date Combined 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-relate d cataract of right eye 05/09/2021 06/03/2021 documented as of this encounter (statuses as of 12/10/2023) [facility] History of Past illness Narrative* Problem Noted Date Diagnosed Date Resolved Date Combined forms of age-relate d cataract of right eye 05/09/2021 06/03/2021 documented as of this encounter (statuses as of 12/10/2023) [facility] History of Past illness Narrative* Problem Noted Date Diagnosed Date Resolved Date Combined forms of age-relate d cataract of right eye 05/09/2021 06/03/2021 documented as of this encounter (statuses as of 12/10/2023) [facility] History of Past illness Narrative* Problem Noted Date Diagnosed Date Resolved Date Combined forms of age-relate d cataract of right eye 05/09/2021 06/03/2021 documented as of this encounter (statuses as of 12/16/2023) [facility] History of Past illness Narrative* Problem Noted Date Diagnosed Date Resolved Date Combined forms of age-relate d cataract of right eye 05/09/2021 06/03/2021 documented as of this encounter (statuses as of 01/05/2024) [facility] History of Past illness Narrative* Problem Noted Date Diagnosed Date Resolved Date Combined forms of age-relate d cataract of right eye 05/09/2021 06/03/2021 documented as of this encounter (statuses as of 01/07/2024) [facility] History of Past illness Narrative* Problem Noted Date Diagnosed Date Resolved Date Combined forms of age-relate d cataract of right eye 05/09/2021 06/03/2021 documented as of this encounter (statuses as of 01/10/2024) [facility] History of Past illness Narrative* Problem Noted Date Diagnosed Date Resolved Date Combined forms of age-relate d cataract of right eye 05/09/2021 06/03/2021 documented as of this encounter (statuses as of 01/13/2024) [facility] History of Past illness Narrative* Problem Noted Date Resolved Date Combined forms of age-related cataract of right eye 05/09/2021 06/03/2021 documented as of this encounter (statuses as of 10/13/2022) [facility]* Diagnosis Type 2 diabetes mellitus with both eyes affected by moderate nonproliferative retinopathy without macular edema, with long-term current use of insulin ([facility])- Primary Pseudophakia of both eyes Lens replaced by other means [facility] Diagnosis Encounter for screening mammogram for breast cancer [facility] Diagnosis Chronic midline low back pain, unspecified whether sciatica present [facility] Diagnosis Ptosis of eyelid, right- Primary Unspecified ptosis of eyelid Right eye sensitive to light Watery eyes Epiphora, unspecified as to cause 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) Type II or unspecified type diabetes mellitus with ophthalmic manifestations, not stated as uncontrolled [facility] Diagnosis Ptosis of right eyelid- Primary Unspecified ptosis of eyelid Type 2 diabetes mellitus with both eyes affected by moderate nonproliferative retinopathy without macular edema, with long-term current use of insulin ([facility]) Pseudophakia of both eyes Lens replaced by other means [facility] Diagnosis Ptosis of right eyelid- Primary Unspecified ptosis of eyelid Type 2 diabetes mellitus with both eyes affected by moderate nonproliferative retinopathy without macular edema, with long-term current use of insulin ([facility]) Pseudophakia of both eyes Lens replaced by other means [facility] Diagnosis Laceration of fifth toe of left foot, initial encounter- Primary [facility] Diagnosis Chronic midline low back pain, unspecified whether sciatica present [facility] Diagnosis Chronic midline low back pain, unspecified whether sciatica present [facility] Diagnosis Ptosis of eyelid, right- Primary [...] stated as uncontrolled [facility] 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 adult Dysuria [facility]* Diagnosis 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) Type II or unspecified type diabetes mellitus with ophthalmic manifestations, not stated as uncontrolled [facility] Diagnosis Onset Date Resolution Status Anemia acute Elevated lipase acute Leukocytosis acute Pericardial effusion acute Thrombocytopenia acute Urinary retention acute UTI (urinary tract infection) acute [facility] Work Phone: Evaluation note* Diagnosis Myasthenia gravis (HCC)- Primary Myasthenia gravis without exacerbation [facility] Diagnosis Severe nonproliferative diabetic retinopathy of [...] (acquired) Unspecified hypothyroidism [facility] Diagnosis Chronic midline low back pain, unspecified whether sciatica present Poorly controlled type 2 diabetes mellitus (HCC)- Primary Type II or unspecified type diabetes mellitus without mention of complication, not stated as uncontrolled Hypothyroidism (acquired) Unspecified hypothyroidism [facility]* Diagnosis Allergic rhinitis, unspecified seasonality, unspecified trigger Poorly controlled type 2 diabetes mellitus (HCC)- Primary Type II or unspecified type diabetes mellitus without mention of complication, not stated as uncontrolled Hypothyroidism (acquired) Unspecified hypothyroidism [facility] Diagnosis Chronic midline low back pain, unspecified whether sciatica present Poorly controlled type 2 diabetes mellitus (HCC)- Primary Type II or unspecified type diabetes mellitus without mention of complication, not stated as uncontrolled Hypothyroidism (acquired) Unspecified hypothyroidism [facility] Diagnosis Urinary retention Retention of urine, [...] (acquired) Unspecified hypothyroidism [facility] Diagnosis Esophageal dysphagia- Primary Dysphagia, pharyngoesophageal [...] (acquired) Unspecified hypothyroidism [facility] Diagnosis Poorly controlled type 2 diabetes mellitus (HCC)- Primary Type II or unspecified type diabetes mellitus without mention of complication, not stated as uncontrolled Hypothyroidism (acquired) Unspecified hypothyroidism [facility] Diagnosis Post-COVID chronic dyspnea- Primary Chronic hypoxemic respiratory failure (HCC) Chronic respiratory failure History of COVID-19 Former cigarette smoker Personal history of tobacco use, presenting hazards to health [facility] Diagnosis 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) Type II or unspecified type diabetes mellitus with ophthalmic manifestations, not stated as uncontrolled [facility] Diagnosis 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) Type II or unspecified type diabetes mellitus with ophthalmic manifestations, not stated as uncontrolled [facility] Diagnosis Encounter for screening mammogram for breast cancer [facility] Diagnosis 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 (HCC)- Primary Pseudophakia of both eyes Lens replaced by other means Ptosis of right eyelid Unspecified ptosis of eyelid Myasthenia gravis (HCC) Myasthenia gravis without exacerbation Dry eye syndrome of bilateral lacrimal glands Tear film insufficiency, unspecified [facility] Diagnosis Cardiac murmur- Primary Undiagnosed cardiac murmurs Generalized edema Edema Chronic midline low back pain, unspecified whether sciatica present Type 2 diabetes mellitus with diabetic neuropathy, with long-term current use of insulin (HCC) Obesity, Class III, BMI >= 40 Morbid obesity Encounter for therapeutic drug monitoring [facility]* Diagnosis Chronic midline low back pain, unspecified whether sciatica present [facility] Diagnosis Swelling of both hands Contact dermatitis due to chemicals Contact dermatitis and other eczema due to other chemical products Acquired hypothyroidism Unspecified hypothyroidism 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) Type II or unspecified type diabetes mellitus with ophthalmic manifestations, not stated as uncontrolled Mixed hyperlipidemia [facility] Diagnosis Rash Rash and other nonspecific skin eruption [facility]* Diagnosis 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) Type II or unspecified type diabetes mellitus with ophthalmic manifestations, not stated as uncontrolled [facility] Diagnosis Generalized edema Edema [facility]* Diagnosis Pericardial effusion (noninflammatory)- Primary Chronic hypoxemic respiratory failure (HCC) Chronic respiratory failure Chronic midline low back pain, unspecified whether sciatica present 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) Type II or unspecified type diabetes mellitus with ophthalmic manifestations, not stated as uncontrolled [facility] Diagnosis Chronic midline low back pain, unspecified whether sciatica present- Primary Screening for ischemic heart disease- Primary [facility]* Diagnosis Screening for ischemic heart disease- Primary Pericardial effusion Unspecified disease of pericardium Essential hypertension Unspecified essential hypertension Mixed hyperlipidemia Post-COVID chronic dyspnea Obesity, Class II, BMI 35-39.9 Obesity, unspecified [facility] Diagnosis Generalized edema Edema Chronic midline low back pain, unspecified whether sciatica present [facility] Diagnosis Chronic midline low back pain, unspecified whether sciatica present [facility]* Diagnosis 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) Type II or unspecified type diabetes mellitus with ophthalmic manifestations, not stated as uncontrolled [facility]* Diagnosis Chronic midline low back pain, unspecified whether sciatica present [facility]* Diagnosis Chronic midline low back pain, unspecified whether sciatica present documented in this encounter [facility] note* Diagnosis Chronic midline low back pain, unspecified whether sciatica present documented in this encounter [facility] note* Diagnosis 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) Type II or unspecified type diabetes mellitus with ophthalmic manifestations, not stated as uncontrolled documented in this encounter [facility] note* Diagnosis Chronic midline low back pain, unspecified whether sciatica present documented in this encounter [facility] note* Diagnosis Chronic midline low back pain, unspecified whether sciatica present documented in this encounter [facility] note* Diagnosis Generalized edema Edema documented in this encounter [facility] noteNo assessment information availableWOhio[facility] Work [facility]: [facility]* Diagnosis Type 2 [...] use of medication documented in this encounter [facility] note* Diagnosis Post-COVID chronic dyspnea Chronic hypoxemic respiratory failure (HCC) Chronic respiratory failure [facility]* Diagnosis 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) Type II or unspecified type diabetes mellitus with ophthalmic manifestations, not stated as uncontrolled documented in this encounter [facility] note* Diagnosis Chronic midline low back pain, unspecified whether sciatica present [facility] 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) Type II or unspecified type diabetes mellitus with ophthalmic manifestations, not stated as uncontrolled [facility] Diagnosis Chronic midline low back pain, unspecified whether sciatica present [facility] Diagnosis Postmenopausal atrophic vaginitis [facility] Diagnosis Swelling of both hands Contact dermatitis due to chemicals Contact dermatitis and other eczema due to other chemical products 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) Type II or unspecified type diabetes mellitus with ophthalmic manifestations, not stated as uncontrolled [facility] Diagnosis Generalized edema Edema [facility] Diagnosis Acquired hypothyroidism Unspecified hypothyroidism [facility] Diagnosis Pericardial effusion- Primary Unspecified disease of pericardium Weight gain Abnormal weight gain Acquired hypothyroidism Unspecified hypothyroidism 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) Type II or unspecified type diabetes mellitus with ophthalmic manifestations, not stated as uncontrolled Leg swelling Swelling of limb [facility] Diagnosis 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) Type II or unspecified type diabetes mellitus with ophthalmic manifestations, not stated as uncontrolled [facility] Diagnosis Pericardial effusion- Primary Unspecified disease of pericardium Fall, initial encounter Right arm pain Pain in limb Right hand pain Pain in limb Acquired hypothyroidism Unspecified hypothyroidism Vitamin D deficiency Unspecified vitamin D deficiency Weight gain Abnormal weight gain Leg swelling Swelling of limb [facility] Diagnosis Chronic midline low back pain, unspecified whether sciatica present [facility] Diagnosis Type 2 diabetes mellitus with [...] Chronic respiratory failure [facility] Diagnosis Lumbar spondylosis- Primary Lumbosacral spondylosis without myelopathy Myofascial pain Mylagia and myositis, unspecified [facility] Diagnosis Acquired hypothyroidism Unspecified hypothyroidism Chronic midline low back pain, unspecified whether sciatica present [facility] Diagnosis Encounter for immunization- Primary [...] hypothyroidism Unspecified hypothyroidism [facility] Diagnosis 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) Type II or unspecified type diabetes mellitus with ophthalmic manifestations, not stated as uncontrolled [facility] Diagnosis Chronic midline low back pain, unspecified whether sciatica present [facility]* Diagnosis Poorly controlled type 2 diabetes mellitus (HCC)- Primary Type II or unspecified type diabetes mellitus without mention of complication, not stated as uncontrolled [facility] Diagnosis Poorly controlled type 2 diabetes mellitus (HCC) Type II or unspecified type diabetes mellitus without mention of complication, not stated as uncontrolled [facility] Diagnosis Lumbar spondylosis Lumbosacral spondylosis without myelopathy [facility]* Diagnosis Dyspnea and respiratory abnormalities Other dyspnea and respiratory abnormality Chest pain, unspecified type [facility] Diagnosis Superficial keratitis of right eye- [...] gravis without exacerbation [facility] Diagnosis Chronic midline low back pain, unspecified whether sciatica present [facility] Diagnosis Chronic midline low back pain, unspecified whether sciatica present [facility] Diagnosis Chronic midline low back pain, unspecified whether sciatica present documented in this encounter [facility]* Diagnosis 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)- Primary Type II or unspecified type diabetes mellitus with ophthalmic manifestations, not stated as uncontrolled Chronic SI joint pain Disorders of sacrum Acquired hypothyroidism Unspecified hypothyroidism Vitamin D deficiency Unspecified vitamin D deficiency Chronic midline low back pain, unspecified whether sciatica present documented in this encounter [facility] note* Diagnosis Encounter for screening mammogram for breast cancer documented in this encounter [facility] note* Diagnosis Allergic rhinitis, unspecified seasonality, unspecified trigger documented in this encounter [facility] note* Diagnosis Leg swelling Swelling of limb Weight gain Abnormal weight gain documented in this encounter [facility] note* Diagnosis Chronic midline low back pain, unspecified whether sciatica present Chronic SI joint pain Disorders of sacrum documented in this encounter [facility] note* Diagnosis Post-COVID chronic dyspnea- Primary Exertional dyspnea Other dyspnea and respiratory abnormality Former smoker Personal history of tobacco use, presenting hazards to health documented in this encounter [facility] note* Diagnosis Chronic midline low back pain, unspecified whether sciatica present documented in this encounter [facility] note* Diagnosis Leg swelling Swelling of limb Weight gain Abnormal weight gain documented in this encounter [facility] note* Diagnosis Leg swelling Swelling of limb Weight gain Abnormal weight gain documented in this encounter [facility] note* Diagnosis Post-COVID chronic dyspnea documented in this encounter [facility] note* Diagnosis Type 2 diabetes mellitus with [...] therapeutic drug monitoring documented in this encounter [facility] note* Diagnosis Post-COVID chronic dyspnea documented in this encounter [facility] note* Diagnosis Encounter for screening for lung cancer- Primary Former smoker Personal history of tobacco use, presenting hazards to health documented in this encounter [facility] note* Diagnosis Leg swelling Swelling of limb Weight gain Abnormal weight gain [facility]* Diagnosis Chronic midline low back pain, unspecified whether sciatica present [facility] Diagnosis Chronic midline low back pain, unspecified whether sciatica present Chronic SI joint pain Disorders of sacrum [facility]* Diagnosis Encounter for screening for lung cancer Former smoker Personal history of tobacco use, presenting hazards to health [facility]* Diagnosis Chronic midline low back pain, unspecified whether sciatica present Chronic SI joint pain Disorders of sacrum [facility]* Diagnosis Leg swelling Swelling of limb Weight gain Abnormal weight gain Chronic midline low back pain, unspecified whether sciatica present Chronic SI joint pain Disorders of sacrum [facility]* Diagnosis 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) Type II or unspecified type diabetes mellitus with ophthalmic manifestations, not stated as uncontrolled Generalized edema Edema documented in this encounter [facility] note* Diagnosis Leg swelling Swelling of limb Weight gain Abnormal weight gain [facility]* Diagnosis Former smoker- Primary Personal history of tobacco use, presenting hazards to health [facility]* Diagnosis Chronic midline low back pain, [...] Swelling of limb [facility]* Diagnosis Type 2 diabetes (HCC)- Primary [facility]* Diagnosis Pericardial effusion- Primary Unspecified disease of pericardium Essential hypertension Unspecified essential hypertension Mixed hyperlipidemia [facility]* Diagnosis Type 2 diabetes (HCC)- Primary 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) Type II or unspecified type diabetes mellitus with ophthalmic manifestations, not stated as uncontrolled Poorly controlled type 2 diabetes mellitus (HCC) Type II or unspecified type diabetes mellitus without mention of complication, not stated as uncontrolled [facility]* Diagnosis Poorly controlled type 2 diabetes mellitus (HCC) Type II or unspecified type diabetes mellitus without mention of complication, not stated as uncontrolled [facility]* Diagnosis Poorly controlled type 2 diabetes mellitus (HCC) Type II or unspecified type diabetes mellitus without mention of complication, not stated as uncontrolled [facility]* Diagnosis Acquired hypothyroidism Unspecified hypothyroidism [facility]* Diagnosis Post-COVID chronic dyspnea- Primary Former smoker Personal history of tobacco use, presenting hazards to health Chronic hypoxemic respiratory failure (HCC) Chronic respiratory failure Obesity, Class II, BMI 35-39.9 Obesity, unspecified [facility]* Diagnosis Chronic midline low back pain, unspecified whether sciatica present Chronic SI joint pain Disorders of sacrum [facility]* Diagnosis Type 2 diabetes (HCC)- Primary 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) Type II or unspecified type diabetes mellitus with ophthalmic manifestations, not stated as uncontrolled [facility]* Diagnosis Mixed hyperlipidemia [facility] Diagnosis 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) Type II or unspecified type diabetes mellitus with ophthalmic manifestations, not stated as uncontrolled Mixed hyperlipidemia [facility]* Diagnosis Gastroesophageal reflux disease, unspecified whether esophagitis present [facility] Diagnosis Chronic midline low back pain, unspecified whether sciatica present Chronic SI joint pain Disorders of sacrum [facility]* Diagnosis Fall, subsequent encounter- Primary Debility Debility, unspecified Hypotension, unspecified hypotension type Hypoxia Hypoxemia Type 2 diabetes mellitus with diabetic neuropathy, with long-term current use of insulin (HCC) [facility]* Diagnosis Chronic midline low back pain, unspecified whether sciatica present Chronic SI joint pain Disorders of sacrum [facility]* Diagnosis Chronic hypoxemic respiratory failure (HCC) Chronic respiratory failure Post-COVID chronic dyspnea [facility]* Diagnosis Injury of left rotator cuff, [...] therapeutic drug monitoring documented in this encounter [facility] note* Diagnosis Acquired hypothyroidism Unspecified hypothyroidism documented in this encounter [facility] note* Diagnosis Establishing care with new doctor, [...] unspecified osteoarthritis type documented in this encounter [facility] note* Diagnosis Establishing care with new doctor, [...] stated as uncontrolled documented in this encounter [facility] note* Diagnosis Establishing care with new doctor, [...] edema- Primary Edema documented in this encounter [facility] note* Diagnosis Establishing care with new doctor, [...] Disorders of sacrum documented in this encounter [facility] note* Diagnosis Establishing care with new doctor, [...] nonspecific skin eruption JOSIE (acute kidney injury) ([facility])- Primary Acute kidney failure, unspecified Type 2 diabetes mellitus with diabetic neuropathy, with long-term current use of insulin ([facility]) Leg swelling Swelling of limb Injury of humerus, left, subsequent encounter Type 2 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 ([facility]) Type II or unspecified type diabetes mellitus with ophthalmic manifestations, not stated as uncontrolled Generalized edema Edema Chronic midline low back pain, unspecified whether sciatica present documented in this encounter [facility] note* Diagnosis Establishing care with new doctor, [...] whether sciatica present documented in this encounter [facility] note* Diagnosis Establishing care with new doctor, [...] Disorders of sacrum documented in this encounter [facility] note* Diagnosis Establishing care with new doctor, [...] Post-COVID chronic dyspnea documented in this encounter [facility] note* Diagnosis Establishing care with new doctor, [...] neuropathy, with long-term current use of insulin ([facility]) Acquired hypothyroidism Unspecified hypothyroidism Essential hypertension Unspecified essential hypertension documented in this encounter [facility] note* Diagnosis Establishing care with new doctor, [...] Disorders of sacrum documented in this encounter [facility] note* Diagnosis Establishing care with new doctor, [...] cuff, subsequent encounter documented in this encounter [facility] note* Diagnosis Establishing care with new doctor, encounter for- Primary Other reasons for seeking consultation Type II or unspecified type diabetes mellitus without mention of complication, uncontrolled Hyperlipidemia Other and unspecified hyperlipidemia Hypothyroid Unspecified hypothyroidism Kidney stone Calculus of kidney Noncompliance Personal history of noncompliance with medical treatment, presenting hazards to [facility] Kidney stone on left side [...] Pain in limb documented in this encounter [facility] note* Diagnosis Establishing care with new doctor, encounter for- Primary Other reasons for seeking consultation Type II or unspecified type diabetes mellitus without mention of complication, uncontrolled Hyperlipidemia Other and unspecified hyperlipidemia Hypothyroid Unspecified hypothyroidism Kidney stone Calculus of kidney Noncompliance Personal history of noncompliance with medical treatment, presenting hazards to [facility] Kidney stone on left side [...] of insulin (HCC) documented in this encounter [facility] note* Diagnosis Establishing care with new doctor, [...] humerus, initial encounter documented in this encounter [facility] note* Diagnosis Establishing care with new doctor, encounter for- Primary Other reasons for seeking consultation Type II or unspecified type diabetes mellitus without mention of complication, uncontrolled Hyperlipidemia Other and unspecified hyperlipidemia Hypothyroid Unspecified hypothyroidism Kidney stone Calculus of kidney Noncompliance Personal history of noncompliance with medical treatment, presenting hazards to [facility] Kidney stone on left side [...] Disorders of sacrum documented in this encounter [facility] note* Diagnosis Establishing care with new doctor, [...] humerus, initial encounter documented in this encounter [facility] note* Diagnosis Establishing care with new doctor, [...] Disorders of sacrum documented in this encounter [facility] note* Diagnosis Establishing care with new doctor, [...] CKD stage- Primary documented in this encounter [facility] note* Diagnosis Establishing care with new doctor, [...] stated as uncontrolled documented in this encounter [facility] note* Diagnosis Establishing care with new doctor, [...] Disorders of sacrum documented in this encounter [facility] note* Diagnosis Establishing care with new doctor, [...] Disorders of sacrum documented in this encounter [facility] note* Diagnosis Establishing care with new doctor, encounter for- Primary Other reasons for seeking consultation Type II or unspecified type diabetes mellitus without mention of complication, uncontrolled Hyperlipidemia Other and unspecified hyperlipidemia Hypothyroid Unspecified hypothyroidism Kidney stone Calculus of kidney Noncompliance Personal history of noncompliance with medical treatment, presenting hazards to [facility] Kidney stone on left side [...] and respiratory abnormality documented in this encounter [facility] note* Diagnosis Establishing care with new doctor, [...] Disorders of sacrum documented in this encounter [facility] note* Diagnosis Establishing care with new doctor, [...] for breast cancer documented in this encounter [facility] note* Diagnosis Establishing care with new doctor, [...] Fatigue, unspecified type documented in this encounter [facility] note* Diagnosis Establishing care with new doctor, encounter for- Primary Other reasons for seeking consultation Type II or unspecified type diabetes mellitus without mention of complication, uncontrolled Hyperlipidemia Other and unspecified hyperlipidemia Hypothyroid Unspecified hypothyroidism Kidney stone Calculus of kidney Noncompliance Personal history of noncompliance with medical treatment, presenting hazards to [facility] Kidney stone on left side [...] of tobacco use, presenting hazards to [facility] Class 3 severe obesity with body mass index (BMI) of 40.0 to 44.9 in adult, unspecified obesity type, unspecified whether serious comorbidity present (HCC) documented in this encounter [facility] note* Diagnosis Establishing care with new doctor, [...] daily at bedtime. documented in this encounter [facility] note* Diagnosis Establishing care with new doctor, [...] stated as uncontrolled documented in this encounter [facility] note* Diagnosis Establishing care with new doctor, [...] to health- Primary documented in this encounter [facility] note* Diagnosis Establishing care with new doctor, [...] stated as uncontrolled documented in this encounter [facility] note* Diagnosis Establishing care with new doctor, [...] hazards to health documented in this encounter [facility] note* Diagnosis Establishing care with new doctor, [...] hazards to health documented in this encounter [facility] note* Diagnosis Establishing care with new doctor, [...] Disorders of sacrum documented in this encounter [facility] note* Diagnosis Establishing care with new doctor, [...] stated as uncontrolled documented in this encounter [facility] note* Diagnosis Establishing care with new doctor, [...] Disorders of sacrum documented in this encounter [facility] note* Diagnosis Establishing care with new doctor, encounter for- Primary Other reasons for seeking consultation Type II or unspecified type diabetes mellitus without mention of complication, uncontrolled Hyperlipidemia Other and unspecified hyperlipidemia Hypothyroid Unspecified hypothyroidism Kidney stone Calculus of kidney Noncompliance Personal history of noncompliance with medical treatment, presenting hazards to [facility] Kidney stone on left side [...] stated as uncontrolled documented in this encounter [facility] note* Diagnosis Establishing care with new doctor, [...] Disorders of sacrum documented in this encounter [facility] note* Diagnosis Establishing care with new doctor, [...] Swelling of limb [facility] Diagnosis Establishing care with new doctor, encounter for- Primary Other reasons for seeking consultation Type II or unspecified type diabetes mellitus without mention of complication, uncontrolled Hyperlipidemia Other and unspecified hyperlipidemia Hypothyroid Unspecified hypothyroidism Kidney stone Calculus of kidney Noncompliance Personal history of noncompliance with medical treatment, presenting hazards to [facility] Kidney stone on left side [...] malignant neoplasms, colon documented in this encounter [facility] note* Diagnosis Establishing care with new doctor, [...] Disorders of sacrum documented in this encounter [facility] note* Diagnosis Establishing care with new doctor, [...] uncontrolled Mixed hyperlipidemia documented in this encounter [facility] note* Diagnosis Establishing care with new doctor, [...] hypothyroidism Unspecified hypothyroidism documented in this encounter [facility] note* Diagnosis Establishing care with new doctor, [...] whether esophagitis present documented in this encounter [facility] note* Diagnosis Establishing care with new doctor, [...] stated as uncontrolled documented in this encounter [facility] note* Diagnosis Establishing care with new doctor, encounter for- Primary Other reasons for seeking consultation Type II or unspecified type diabetes mellitus without mention of complication, uncontrolled Hyperlipidemia Other and unspecified hyperlipidemia Hypothyroid Unspecified hypothyroidism Kidney stone Calculus of kidney Noncompliance Personal history of noncompliance with medical treatment, presenting hazards to [facility] Kidney stone on left side [...] stated as uncontrolled documented in this encounter [facility] note* Diagnosis Establishing care with new doctor, [...] Disorders of sacrum documented in this encounter [facility] note* Diagnosis Establishing care with new doctor, [...] stated as uncontrolled [facility] Diagnosis Establishing care with new doctor, encounter for- Primary Other reasons for seeking consultation Type II or unspecified type diabetes mellitus without mention of complication, uncontrolled Hyperlipidemia Other and unspecified hyperlipidemia Hypothyroid Unspecified hypothyroidism Kidney stone Calculus of kidney Noncompliance Personal history of noncompliance with medical treatment, presenting hazards to [facility] Kidney stone on left side [...] defects Hypokalemia Hypopotassemia documented in this encounter [facility] note* Diagnosis Establishing care with new doctor, [...] Abnormal weight gain documented in this encounter [facility] note* Diagnosis Establishing care with new doctor, [...] Disorders of sacrum [facility] Diagnosis Onset Date Resolution Status Admit Date Dyspnea on exertion acute Octob er 2024 6:29pm Swelling of both lower extremities acute July 09 6:29pm Acute on chronic hypoxic respiratory failure chronic July 09, 2025 6:29pm CHF exacerbation chronic July 09, 2025 6:29pm [facility] Work Phone: History and physical note Author Tavo Nileson [facility] Note Date/Time July 09, 2025 6: 40pm [facility] Medical Records Department [address] [place] [address] H&P Exam - Hospitalist 07/09/25 1834 MR#: [id number] Acct: [id number] Name: SAMANTHA ROMERO Rep #:[id number] : 1965 59 From: Tavo Nielson DO PCP: Dr. Sarina Adams MD Status:AD M IN Location: [facility] [id number] HPI - General General Date of Service: 07/09/25 Chief Complaint: Shortness of breath HPI Narrative SAMANTHA ROMERO, is a 59 F who presents with shortness of breath. This is a 59-year-old female who is on oxygen since having COVID 4-1/2 years ago. Went tosee her banking specialist and just has been progressively more short [...] she does require at home. [ ] [facility] Medical History COVID History of hypothyroidism Type [...] 71.8 H, Lymph % (Auto) 15.5 L, White % (Auto) 7.2, Eos % (Auto) 4.4, [...] edema. No sizable pleural effusion. Reading Location: [id number] Assessment & Plan Assessment/Plan (1) CHF exacerbation: [...] full code. Charges/Coding Visit Charges Inpatient E&M: 88272 Init Hosp L2 07/09/25 1840 <Electronically signed by Tavo Nielson DO> Cosigner Signature (if applicable): CC: Dr. Tavo Nielson DO; Dr. Sarina Adams MD~ Signed [facility] Work Phone: Hospital Discharge instructionsAdditional [...] When you eat out, ask that the lime kiln worker not add any salt to your dish. Don't eat fried or greasy foods. Be careful of bottled beverages. They can contain a lot of salt -Call 911 right away if you have: -Severe shortness of breath, such that you can't catch your breath even while resting -Severe chest pain that does not resolve with rest or nitroglycerin -Shelby, foamy mucus with cough and shortness of [...] the nearest emergency department Date of Discharge: 07/12/25[facility] Work Phone: Reason for referral (narrative)* Diagnostic Procedure Only (Routine) - Pending Review Specialty Diagnoses / Procedures Referred By Zoila wright Referred To Contact [facility] Diagnoses Encounter for screening mammogram for breast cancer Procedures DIANNA SCREENING SCREENING MAMMOGRAPHY BI 2-VIEW BREAST INC CAD Sarina Adams MD [address] [place] [address] [facility] [address] [place] [address] Referral ID Status Reason Start Date Expiration Date Visits Requested Visits Authorized [id number] Pending Review Auto-Generat ed Referral 12/24/2021 01/23/2023 1 1 [facility] for referral (narrative)* Outpatient Procedure (Routine) - Pending Review Specialty Diagnoses / Procedures Referred By Contac t Referred To Contact [facility] Diagnoses Post-COVID chronic dyspnea Chronic hypoxemic respiratory failure (HCC) Procedures OXIMETRY WITH AMBULATION NONINVASIVE EAR/PULSE OXIMETRY Brooke Schroeder PA-C [address] [place] [address] [facility] [place] [address] [place] [address] Referral ID Status Reason Start Date Expiration Date Visits Requested Visits Authorized [id number] Pending Review Auto-Generat ed Referral 10/26/2022 11/25/2023 1 1 [facility] for referral (narrative)* Diagnostic Procedure Only (Routine) - Pending Review Specialty Diagnoses / Procedures Referred By Contac t Referred To Contact [facility] Diagnoses Encounter for screening mammogram for breast cancer Procedures DIANNA SCREENING SCREENING MAMMOGRAPHY BI 2-VIEW BREAST INC CAD Sarina Adams MD [address] [place], [place] [id number] [facility] [address] [place] [phone] Referral ID Status Reason Start Date Expiration Date Visits Requested Visits Authorized [id number] Pending Review Auto-Generat ed Referral 12/02/2022 01/01/2024 1 1 [facility] for referral (narrative)* Outpatient Procedure (Routine) - Authorized Specialty Diagnoses / Procedures Referred By Contac t Referred To Contact [facility] Diagnoses Generalized edema Procedures ECHO ECHO TTHRC R-T 2D W/WOM-MODE COMPL SPEC&COLR Cole Cardenas APRN.MANAGER APPOINTMENT [address] [place] [address] [facility] [place] [address] [place] [address] Referral ID Status Reason Start Date Expiration Date Visits Requested Visits Authorized [id number] Authorized Auto-Generat ed Referral 12/29/2022 02/16/2023 1 1 [facility] for referral (narrative)* Outpatient Procedure (Routine) - Additional Clinical Info Needed Specialty Diagnoses / Procedures Referred By Contac t Referred To Contact [facility] Diagnoses Pericardial effusion Procedures ECHO ECHO TTHRC R-T 2D W/WOM-MODE COMPL SPEC&COLR D Ramesh Brewster MD [address] [place] [address] [address] Referral ID Status Reason Start Date Expiration Date Visits Requested Visits Authorized [id number] Additional Clinical Info Needed Auto-Generat ed Referral 01/25/2023 01/25/2024 1 1 * Outpatient Procedure (Routine) - Authorized Specialty Diagnoses / Procedures Referred By Contac t Referred To Contact [facility] Diagnoses Screening for ischemic heart disease Procedures ECG COMPLETE ECG ROUTINE ECG W/LEAST 12 LDS W/I&R Ramesh Brewster MD [address] [place] [address] [address] Referral ID Status Reason Start Date Expiration Date Visits Requested Visits Authorized [id number] Authorized Auto-Generat ed Referral 01/19/2023 01/19/2024 1 1 [facility] for referral (narrative)* Diagnostic Procedure Only (Routine) - Closed Specialty Diagnoses / Procedures Referred By Contac t Referred To Contact XR IMAGING Diagnoses Fall, initial encounter Right arm pain Right hand pain Procedures XR FOREARM GENERAL 2V AP/LAT RIGHT RADEX FOREARM 2 VIEWS Denise Alvarado, ODILON.FELLING MACHINE OPERATOR [address] [place] [address] [place] [address] Referral ID Status Reason Start Date Expiration Date V isits Requested Visits Authorized [id number] Closed Auto-Generate d Referral 05/24/2023 06/22/2024 1 1 * Diagnostic Procedure Only (Routine) - Closed Specialty Diagnoses / Procedures Referred By Contac t Referred To Contact XR IMAGING Diagnoses Fall, initial encounter Right arm pain Right hand pain Procedures XR HAND GENERAL 3V PA/LAT/OBL RIGHT RADEX HAND MINIMUM 3 VIEWS Denise Alvarado APRN.CNS [address] [place] [address] [place] [address] Referral ID Status Reason Start Date Expiration Date V isits Requested Visits Authorized [id number] Closed Auto-Generate d Referral 05/24/2023 06/22/2024 1 1 [facility] for referral (narrative)* Diagnostic Procedure Only (Routine) - Closed Specialty Diagnoses / Procedures Referred By Contac t Referred To Contact XR IMAGING Diagnoses Lumbar spondylosis Procedures XR LUMBAR MOTION 4V AP/LAT/ FLEX/EXT RADEX SPINE LUMBOSACRAL MINIMUM 4 VIEWS Jaida Soares MD [address] [place] [address] [place] [address] Referral ID Status Reason Start Date Expiration Date V isits Requested Visits Authorized [id number] Closed Auto-Generate d Referral 07/01/2023 07/30/2024 1 1 [facility] for referral (narrative)* Diagnostic Procedure Only (Routine) - Closed Specialty Diagnoses / Procedures Referred By Contac t Referred To Contact XR IMAGING Diagnoses Lumbar spondylosis Procedures XR LUMBAR MOTION 4V AP/LAT/ FLEX/EXT RADEX SPINE LUMBOSACRAL MINIMUM 4 VIEWS Jaida Soares MD [address] [place] [address] [place] [address] Referral ID Status Reason Start Date Expiration Date V isits Requested Visits Authorized [id number] Closed Auto-Generate d Referral 07/01/2023 07/30/2024 1 1 [facility] for referral (narrative)* Diagnostic Procedure Only (Routine) - Pending Review Specialty Diagnoses / Procedures Referred By Contac t Referred To Contact [facility] Diagnoses Encounter for screening mammogram for breast cancer Procedures DIANNA SCREENING SCREENING MAMMOGRAPHY BI 2-VIEW BREAST INC CAD Sarina Adams MD [address] [place] [address] [facility] [address] [place] [address] Referral ID Status Reason Start Date Expiration Date Visits Requested Visits Authorized [id number] Pending Review Auto-Generat ed Referral 11/10/2023 12/09/2024 1 1 [facility] for referral (narrative)* Outpatient Procedure (Routine) - Authorized Specialty Diagnoses / Procedures Referred By Contac t Referred To Contact [facility] Diagnoses Post-COVID chronic dyspnea Procedures LUNG DIFFUSION CAPACITY (DLCO) DIFFUSING CAPACITY Brooke Be PA-C [address] [place] [address] [facility] [place] [address] [place] [address] Referral ID Status Reason Start Date Expiration Date Visits Requested Visits Authorized [id number] Authorized Auto-Generat ed Referral 12/01/2023 12/30/2024 1 1 * Outpatient Procedure (Routine) - Authorized Specialty Diagnoses / Procedures Referred By Contcornelia t Referred To Contact [facility] Diagnoses Post-COVID chronic dyspnea Procedures OXIMETRY WITH AMBULATION NONINVASIVE EAR/PULSE OXIMETRY MULTIPLE DETER Brooke Be PA-C [address] [place] [address] [facility] [place] [address] [place] [address] Referral ID Status Reason Start Date Expiration Date Visits Requested Visits Authorized [id number] Authorized Auto-Generat ed Referral 12/01/2023 12/30/2024 1 1 * Outpatient Procedure (Routine) - Authorized Specialty Diagnoses / Procedures Referred By Contac t Referred To Contact [facility] Diagnoses Post-COVID chronic dyspnea Procedures SPIROMETRY WITH DILATOR IF OBSTRUCTED BRNCDILAT RSPSE SPMTRY PRE&POST-BRNCDILAT ADMN Brooke Be PA-C [address] [place] [address] [facility] [place] [address] [place] [address] Referral ID Status Reason Start Date Expiration Date Visits Requested Visits Authorized [id number] Authorized Auto-Generat ed Referral 12/01/2023 12/30/2024 1 1 [facility] for referral (narrative)* Outpatient Procedure (Routine) - Pending Review Specialty Diagnoses / Procedures Referred By Contac t Referred To Contact [facility] Diagnoses Pericardial effusion Procedures ECHO ECHO TTHRC R-T 2D W/WOM-MODE COMPL SPEC&COLR D Ramesh Brewster MD [address] [place] [address] [facility] [address] [address] Referral ID Status Reason Start Date Expiration Date Visits Requested Visits Authorized [id number] Pending Review Auto-Generat ed Referral 06/05/2024 02/20/2025 1 1 [facility] for referral (narrative)* Diagnostic Procedure Only (Routine) - Closed Specialty Diagnoses / Procedures Referred By Contac t Referred To Contact XR IMAGING Diagnoses Injury of left rotator cuff, subsequent encounter Procedures XR SHOULDER LIMITED 2V AP/TRUE AP LEFT RADEX SHOULDER COMPLETE MINIMUM 2 VIEWS Cole Bower APRN.MANAGER APPOINTMENT [address] [place] [address] [place] [address] Referral ID Status Reason Start Date Expiration Date V isits Requested Visits Authorized [id number] Closed Auto-Generate d Referral 06/14/2024 07/14/2025 1 1 [facility] for referral (narrative)* Diagnostic Procedure Only (Routine) - Closed Specialty Diagnoses / Procedures Referred By Contac t Referred To Contact XR IMAGING Diagnoses Fall, initial encounter Chronic SI joint pain Procedures XR LUMBAR GENERAL 3V AP/LAT/L5-S1 RADEX SPINE LUMBOSACRAL 2/3 VIEWS Denise Alvarado APRN.FELLING MACHINE OPERATOR [address] [place] [address] [place] [address] Referral ID Status Reason Start Date Expiration Date V isits Requested Visits Authorized [id number] Closed Auto-Generate d Referral 10/28/2023 11/26/2024 1 1 [facility] for referral (narrative)* Diagnostic Procedure Only (Routine) - Closed Specialty Diagnoses / Procedures Referred By Contac t Referred To Contact XR IMAGING Diagnoses Fall, initial encounter Right arm pain Right hand pain Procedures XR FOREARM GENERAL 2V AP/LAT RIGHT RADEX FOREARM 2 VIEWS Denise Alvarado APRN.FELLING MACHINE OPERATOR [address] [place] [address] [place] [address] Referral ID Status Reason Start Date Expiration Date V isits Requested Visits Authorized [id number] Closed Auto-Generate d Referral 05/24/2023 06/22/2024 1 1 * Diagnostic Procedure Only (Routine) - Closed Specialty Diagnoses / Procedures Referred By Contac t Referred To Contact XR IMAGING Diagnoses Fall, initial encounter Right arm pain Right hand pain Procedures XR HAND GENERAL 3V PA/LAT/OBL RIGHT RADEX HAND MINIMUM 3 VIEWS Denise Alvarado APRN.FELLING MACHINE OPERATOR [address] [place] [address] [place] [address] Referral ID Status Reason Start Date Expiration Date V isits Requested Visits Authorized [id number] Closed Auto-Generate d Referral 05/24/2023 06/22/2024 1 1 [facility] for referral (narrative)* Diagnostic Procedure Only (Routine) - Closed Specialty Diagnoses / Procedures Referred By Contac t Referred To Contact XR IMAGING Diagnoses Other closed nondisplaced fracture of proximal end of left humerus, initial encounter Procedures XR SHOULDER LIMITED 2V AP/TRUE AP LEFT RADEX SHOULDER COMPLETE MINIMUM 2 VIEWS Klaus Hernandez MD [address] [place] [address] [place] [address] Referral ID Status Reason Start Date Expiration Date V isits Requested Visits Authorized [id number] Closed Auto-Generate d Referral 06/26/2024 07/26/2025 1 1 [facility] for referral (narrative)* Medication Prior Authorization - Closed Specialty Diagnoses / Procedures Referred By Contac t Referred To Contact Denise Alvarado APRN.CNS [address] [place] [address] Phone: tel: fax: Referral ID Status Reason Start Date Expiration Date Visits Re quested Visits Authorized [id number] Closed 1 1 [facility] for referral (narrative)* Medication Prior Authorization - Pending Review Specialty Diagnoses / Procedures Referred By Zoila t Referred To Contact Denise Alvarado APRN.CNS [address] [place] [address] Phone: tel: fax: Referral ID Status Reason Start Date Expiration Date V isits Requested Visits Authorized [id number] Pending Review 1 1 [facility] for referral (narrative)No reason for referral information [facility] Work Phone: Reason for visit Narrative* Diagnostic Procedure Only (Routine) - Closed Specialty Diagnoses / Procedures Referred By Contac t Referred To Contact XR IMAGING Diagnoses Lumbar spondylosis Procedures XR LUMBAR MOTION 4V AP/LAT/ FLEX/EXT RADEX SPINE LUMBOSACRAL MINIMUM 4 VIEWS Jaida Soares MD [address] [facility] [address] [place] [address] [place] [address] Referral ID Status Reason Start Date Expiration Date V isits Requested Visits Authorized [id number] Closed Auto-Generate d Referral 07/01/2023 07/30/2024 1 1 [facility] for visit Narrative* Diagnostic Procedure Only (Routine) - Closed Specialty Diagnoses / Procedures Referred By Contac t Referred To Contact XR IMAGING Diagnoses Fall, initial encounter Chronic SI joint pain Procedures XR LUMBAR GENERAL 3V AP/LAT/L5-S1 RADEX SPINE LUMBOSACRAL 2/3 VIEWS Denise Alvarado, DISPATCH SUPERVISOR.FELLING MACHINE OPERATOR [address] [place] [address] [place] [address] Referral ID Status Reason Start Date Expiration Date V isits Requested Visits Authorized [id number] Closed Auto-Generate d Referral 10/28/2023 11/26/2024 1 1 [facility] for visit Narrative* Diagnostic Procedure Only (Routine) - Closed Specialty Diagnoses / Procedures Referred By Contac t Referred To Contact XR IMAGING Diagnoses Injury of left rotator cuff, subsequent encounter Procedures XR SHOULDER LIMITED 2V AP/TRUE AP LEFT RADEX SHOULDER COMPLETE MINIMUM 2 VIEWS Cole Bower, DISPATCH SUPERVISOR.MANAGER APPOINTMENT [address] [place] [address] [place] [address] Referral ID Status Reason Start Date Expiration Date V isits Requested Visits Authorized [id number] Closed Auto-Generate d Referral 06/14/2024 07/14/2025 1 1 [facility] for visit Narrative* Diagnostic Procedure Only (Routine) - Closed Specialty Diagnoses / Procedures Referred By Contac t Referred To Contact XR IMAGING Diagnoses Fall, initial encounter Right arm pain Right hand pain Procedures XR FOREARM GENERAL 2V AP/LAT RIGHT RADEX FOREARM 2 VIEWS Denise Alvarado, DISPATCH SUPERVISOR.FELLING MACHINE OPERATOR [address] [place] [address] [place] [address] Referral ID Status Reason Start Date Expiration Date V isits Requested Visits Authorized [id number] Closed Auto-Generate d Referral 05/24/2023 06/22/2024 1 1 [facility] Procedure Only (Routine) - Closed Specialty Diagnoses / Procedures Referred By Contac t Referred To Contact XR IMAGING Diagnoses Other closed nondisplaced fracture of proximal end of left humerus, initial encounter Procedures XR SHOULDER LIMITED 2V AP/TRUE AP LEFT RADEX SHOULDER COMPLETE MINIMUM 2 VIEWS Klaus Hernandez MD [address] [place] [address] [place] [address] Referral ID Status Reason Start Date Expiration Date V isits Requested Visits Authorized [id number] Closed Auto-Generate d Referral 06/26/2024 07/26/2025 1 1 [facility] Summary Purpose Family History No Family History Records Found Relationship Condition Age at Onset Recorded Date/T adeel mother Diabetes mellitus Unknown father Diabetes mellitus Unknown Advance Directives No Advanced Directives Records Found Advance Directive Response Recorded Date/ Time Advance Directives No November 05, 2016 3:25pm Living Will No August 09 10:08pm Power of Entry Level Drafter No August 09, 2022 10:08pm Advance Directive Response Recorded Date/ Time Advance Directives No November 05, 2016 4:25pm Living Will No April 09, 2023 8 :00pm Power of Entry Level Drafter No April 09, 2023 8:00pm Advance Directive Response Recorded Date/ Time Advance Directives No November 05, 2016 3:25pm Living Will No August 12 3:35pm Power of Entry Level Drafter No August 12, 2023 3:35pm Advance Directive Response Recorded Date/ Time Do you have a Healthcare Power of Entry Level Drafter? Yes July 09, 2025 4:41pm Advance Directives No November 05, 2016 4:25pm Advance Directive Response Recorded Date/ Time Do you have a Healthcare Power of Entry Level Drafter? 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 Watery eyes Procedures CONSULT TO OPHTHALMOLOGY OFFICE/OUTPATIENT [facility] 60-74 MINUTES Sarina Adams MD [address] [place] [address] Referral ID Status Reason Start Date Expiration Date Visits Requested Visits Authorized [id number] Authorized PCP Requested Referral 01/30/2022 01/30/2023 1 1 Specialty Diagnoses / Procedures Referred By Contac t Referred To Contact Diagnoses 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) Sarina Adams MD [address] [place] [address] Referral ID Status Reason Start Date Expiration Date V isits Requested Visits Authorized [id number] Pending Review 1 1 Specialty Diagnoses / Procedures Referred By Contac t Referred To Contact CT IMAGING Diagnoses Myasthenia gravis (HCC) Procedures CT CHEST WO IVCON DIAGNOSTIC COMPUTED TOMOGRAPHY THORAX W/O CNTRST Sarina Adams MD [address] [place] [address] Ct Imaging Referral ID Status Reason Start Date Expiration Date Visits Requested Visits Authorized [id number] Pending Review Auto-Generat ed Referral 04/01/2022 05/01/2023 1 1 Specialty Diagnoses / Procedures Referred By Contac t Referred To Contact Endocrinology Diagnoses Hypothyroidism (acquired) Procedures CONSULT TO ENDOCRINOLOGY OFFICE/OUTPATIENT [facility] 60-74 MINUTES Radha Warner MD [address] [place] [address] Referral ID Status Reason Start Date Expiration Date Visits Requested Visits Authorized [id number] Authorized PCP Requested Referral 06/02/2022 06/02/2023 1 1 Specialty Diagnoses / Procedures Referred By Contac t Referred To Contact CT IMAGING Diagnoses Malignant neoplasm of thymus (HCC) Procedures CT CHEST WO IVCON DIAGNOSTIC COMPUTED TOMOGRAPHY THORAX W/O CNTRST Monty Douglas MD [address] [facility] [address] [place] [address] Ct Imaging Referral ID Status Reason Start Date Expiration Date Visits Requested Visits Authorized [id number] Pending Review Auto-Generat ed Referral 07/03/2022 08/02/2023 1 1 Referral ID Status Reason Start Date Expiration Date V isits Requested Visits Authorized [id number] Closed Auto-Generate d Referral 07/08/2022 09/06/2022 1 1 Specialty Diagnoses / Procedures Referred By Contac t Referred To Contact Diagnoses Mixed hyperlipidemia Sarina Adams MD [address] [place] [address] Referral ID Status Reason Start Date Expiration Date Visits Re quested Visits Authorized [id number] Closed 1 1 Specialty Diagnoses / Procedures Referred By Contac t Referred To Contact Jerrica uDenas APRN.MANAGER APPOINTMENT [address] [place] [address] Referral ID Status Reason Start Date Expiration Date V isits Requested Visits Authorized [id number] Pending Review 1 1 Specialty Diagnoses / Procedures Referred By Contac t Referred To Contact Diagnoses Poorly controlled type 2 diabetes mellitus (HCC) Procedures CONSULT TO DIABETES EDUCATION OFFICE/OUTPATIENT [facility] 60-74 MINUTES Jerrica Duenas, DISPATCH SUPERVISOR.MANAGER APPOINTMENT [address] [place] [address] Referral ID Status Reason Start Date Expiration Date Visits Requested Visits Authorized [id number] Authorized PCP Requested Referral 10/21/2022 10/21/2023 1 1 Referral ID Status Reason Start Date Expiration Date Visits Re quested Visits Authorized [id number] Closed 1 1 Specialty Diagnoses / Procedures Referred By Contac t Referred To Contact Cole Bower APRN.MANAGER APPOINTMENT [address] [place] [address] Referral ID Status Reason Start Date Expiration Date Visits Re quested Visits Authorized [id number] Closed 1 1 Specialty Diagnoses / Procedures Referred By Contac t Referred To Contact [facility] Diagnoses Pericardial effusion (noninflammatory) Procedures ECHO ECHO TTHRC R-T 2D W/WOM-MODE COMPL SPEC&COLR D Cole Bower APRN.MANAGER APPOINTMENT [address] [place] [address] [facility] [address] [place] [address] Referral ID Status Reason Start Date Expiration Date Visits Requested Visits Authorized [id number] Pending Review Auto-Generat ed Referral 01/15/2023 01/15/2024 1 1 Specialty Diagnoses / Procedures Referred By Contac t Referred To Contact Pain Management Diagnoses Chronic midline low back pain, unspecified whether sciatica present Procedures CONSULT TO PAIN MGT OFFICE/OUTPATIENT [facility] 60-74 MINUTES Sarina Adams MD [address] [place] [address] Jaida Soares MD [address] [address] Referral ID Status Reason Start Date Expiration Date Visits Requested Visits Authorized [id number] Authorized PCP Requested Referral 03/26/2023 03/25/2024 1 1 Specialty Diagnoses / Procedures Referred By Contac t Referred To Contact Diagnoses Pericardial effusion Weight gain Leg swelling Denise Alvarado, ODILON.FELLING MACHINE OPERATOR [address] [place] [address] Referral ID Status Reason Start Date Expiration Date Visits Re quested Visits Authorized [id number] Closed 1 1 Specialty Diagnoses / Procedures Referred By Contac t Referred To Contact [facility] Diagnoses Pericardial effusion Weight gain Procedures ECHO ECHO TTHRC R-T 2D W/WOM-MODE COMPL SPEC&COLR D Denise Alvarado, DISPATCH SUPERVISOR.FELLING MACHINE OPERATOR [address] [place] [address] [facility] [address] [place] [address] Referral ID Status Reason Start Date Expiration Date Visits Requested Visits Authorized [id number] Additional Clinical Info Needed Auto-Generat ed Referral 05/24/2023 05/16/2024 1 1 Referral ID Status Reason Start Date Expiration Date Visits Re quested Visits Authorized [id number] Closed 1 1 Specialty Diagnoses / Procedures Referred By Contac t Referred To Contact Diagnoses Leg swelling Weight gain Sarina Adams MD [address] [place] [address] Referral ID Status Reason Start Date Expiration Date Visits Re quested Visits Authorized [id number] Closed 1 1 Specialty Diagnoses / Procedures Referred By Contac t Referred To Contact Diagnoses 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) Cole Bower, DISPATCH SUPERVISOR.MANAGER APPOINTMENT [address] [place] [address] Referral ID Status Reason Start Date Expiration Date V isits Requested Visits Authorized [id number] Authorized 12/10/2023 12/08/2024 1 1 Specialty Diagnoses / Procedures Referred By Contac t Referred To Contact CT IMAGING Diagnoses Encounter for screening for lung cancer Former smoker Procedures CT LUNG SCREEN WO IVCON COMPUTED TOMOGRAPHY THORAX LW DOSE LNG CA Kay Frankel, DISPATCH SUPERVISOR.MANAGER APPOINTMENT [address] [place] [address] [place] [address] Referral ID Status Reason Start Date Expiration Date Visits Requested Visits Authorized [id number] Pending Review Auto-Generat ed Referral 01/03/2024 02/01/2025 1 1 Specialty Diagnoses / Procedures Referred By Contac t Referred To Contact CT IMAGING Diagnoses Former smoker Procedures CT LUNG SCREEN WO IVCON COMPUTED TOMOGRAPHY THORAX LW DOSE LNG CA Kay Frankel APRN.MANAGER APPOINTMENT [address] [place] [id number] [facility] [place] [address] Referral ID Status Reason Start Date Expiration Date Visits Requested Visits Authorized [id number] Pending Review Auto-Generat ed Referral 02/08/2024 03/09/2025 1 1 Specialty Diagnoses / Procedures Referred By Contac t Referred To Contact Diagnoses Chronic midline low back pain, unspecified whether sciatica present Chronic SI joint pain Sarina Adams MD [address] [place] [address] Referral ID Status Reason Start Date Expiration Date Visits Re quested Visits Authorized [id number] Closed 1 1 Specialty Diagnoses / Procedures Referred By Contac t Referred To Contact Orthopedics Diagnoses Injury of left rotator cuff, subsequent encounter Procedures CONSULT TO ORTHOPAEDICS OFFICE/OUTPATIENT [facility] 60 MINUTES Cole Bower DISPATCH SUPERVISOR.MANAGER APPOINTMENT [address] [place] [address] Referral ID Status Reason Start Date Expiration Date Visits Requested Visits Authorized [id number] Authorized PCP Requested Referral 05/16/2024 05/16/2025 1 1 Specialty Diagnoses / Procedures Referred By Contac t Referred To Contact Diagnoses Chronic midline low back pain, unspecified whether sciatica present Chronic SI joint pain Cole Bower DISPATCH SUPERVISOR.MANAGER APPOINTMENT [address] [place] [address] Referral ID Status Reason Start Date Expiration Date Visits Re quested Visits Authorized [id number] Closed 1 1 Referral ID Status Reason Start Date Expiration Date V isits Requested Visits Authorized [id number] Pending Review 07/12/2024 09/10/2024 1 1 Referral ID Status Reason Start Date Expiration Date V isits Requested Visits Authorized [id number] Pending Review 1 1 Chief Complaint and [...] section and content) DATE CREATED AUTHOR 03/04/2019 [facility] ([place]) DATE CREATED AUTHOR AUTHOR'S ORGANIZ ATION 06/09/2021 [facility] DATE CREATED AUTHOR AUTHOR'S ORGANIZ ATION 06/20/2021 [facility] DATE CREATED AUTHOR AUTHOR'S ORGANIZ ATION 07/08/2023 [facility] DATE CREATED AUTHOR AUTHOR'S ORGANIZ ATION 08/11/2025 [facility] DATE CREATED AUTHOR AUTHOR'S ORGANIZ ATION 08/14/2025 [facility] Source Comments (unrecognize d section and content) In the event this informatio n is protected by the Federal Confidentiality of Alcohol and Drug Abuse Patient Records regulations: The Federal rules restrict any use of the information to criminally investigate or prosecute any alcohol or drug abuse patient.[facility] the event this information is protected by the Federal Confidentiality of Alcohol and Drug Abuse Patient Records regulations: The Federal rules restrict any use of the information to criminally investigate or prosecute any alcohol or drug abuse patient.[facility] HospitalIn the event this information is protected by the Federal Confidentiality of Alcohol and Drug Abuse Patient Records regulations: The Federal rules restrict any use of the information to criminally investigate or prosecute any alcohol or drug abuse patient.[facility] HospitalIn the event this information is protected by the Federal Confidentiality of Alcohol and Drug Abuse Patient Records regulations: The Federal rules restrict any use of the information to criminally investigate or prosecute any alcohol or drug abuse patient.[facility] HospitalIn the event this information is protected by the Federal Confidentiality of Alcohol and Drug Abuse Patient Records regulations: The Federal rules restrict any use of the information to criminally investigate or prosecute any alcohol or drug abuse patient.[facility] HospitalIn the event this information is protected by the Federal Confidentiality of Alcohol and Drug Abuse Patient Records regulations: The Federal rules restrict any use of the information to criminally investigate or prosecute any alcohol or drug abuse patient.[facility] HospitalIn the event this information is protected by the Federal Confidentiality of Alcohol and Drug Abuse Patient Records regulations: The Federal rules restrict any use of the information to criminally investigate or prosecute any alcohol or drug abuse patient.[facility] HospitalIn the event this information is protected by the Federal Confidentiality of Alcohol and Drug Abuse Patient Records regulations: The Federal rules restrict any use of the information to criminally investigate or prosecute any alcohol or drug abuse patient.[facility] HospitalIn the event this information is protected by the Federal Confidentiality of Alcohol and Drug Abuse Patient Records regulations: The Federal rules restrict any use of the information to criminally investigate or prosecute any alcohol or drug abuse patient.[facility] HospitalIn the event this information is protected by the Federal Confidentiality of Alcohol and Drug Abuse Patient Records regulations: The Federal rules restrict any use of the information to criminally investigate or prosecute any alcohol or drug abuse patient.[facility] HospitalIn the event this information is protected by the Federal Confidentiality of Alcohol and Drug Abuse Patient Records regulations: The Federal rules restrict any use of the information to criminally investigate or prosecute any alcohol or drug abuse patient.[facility] HospitalIn the event this information is protected by the Federal Confidentiality of Alcohol and Drug Abuse Patient Records regulations: The Federal rules restrict any use of the information to criminally investigate or prosecute any alcohol or drug abuse patient.[facility] HospitalIn the event this information is protected by the Federal Confidentiality of Alcohol and Drug Abuse Patient Records regulations: The Federal rules restrict any use of the information to criminally investigate or prosecute any alcohol or drug abuse patient.[facility] HospitalIn the event this information is protected by the Federal Confidentiality of Alcohol and Drug Abuse Patient Records regulations: The Federal rules restrict any use of the information to criminally investigate or prosecute any alcohol or drug abuse patient.[facility] HospitalIn the event this information is protected by the Federal Confidentiality of Alcohol and Drug Abuse Patient Records regulations: The Federal rules restrict any use of the information to criminally investigate or prosecute any alcohol or drug abuse patient.[facility] HospitalIn the event this information is protected by the Federal Confidentiality of Alcohol and Drug Abuse Patient Records regulations: The Federal rules restrict any use of the information to criminally investigate or prosecute any alcohol or drug abuse patient.[facility] HospitalIn the event this information is protected by the Federal Confidentiality of Alcohol and Drug Abuse Patient Records regulations: The Federal rules restrict any use of the information to criminally investigate or prosecute any alcohol or drug abuse patient.[facility] HospitalIn the event this information is protected by the Federal Confidentiality of Alcohol and Drug Abuse Patient Records regulations: The Federal rules restrict any use of the information to criminally investigate or prosecute any alcohol or drug abuse patient.[facility] HospitalIn the event this information is protected by the Federal Confidentiality of Alcohol and Drug Abuse Patient Records regulations: The Federal rules restrict any use of the information to criminally investigate or prosecute any alcohol or drug abuse patient.[facility] HospitalIn the event this information is protected by the Federal Confidentiality of Alcohol and Drug Abuse Patient Records regulations: The Federal rules restrict any use of the information to criminally investigate or prosecute any alcohol or drug abuse patient.[facility] HospitalIn the event this information is protected by the Federal Confidentiality of Alcohol and Drug Abuse Patient Records regulations: The Federal rules restrict any use of the information to criminally investigate or prosecute any alcohol or drug abuse patient.[facility] HospitalIn the event this information is protected by the Federal Confidentiality of Alcohol and Drug Abuse Patient Records regulations: The Federal rules restrict any use of the information to criminally investigate or prosecute any alcohol or drug abuse patient.[facility] HospitalIn the event this information is protected by the Federal Confidentiality of Alcohol and Drug Abuse Patient Records regulations: The Federal rules restrict any use of the information to criminally investigate or prosecute any alcohol or drug abuse patient.[facility] HospitalIn the event this information is protected by the Federal Confidentiality of Alcohol and Drug Abuse Patient Records regulations: The Federal rules restrict any use of the information to criminally investigate or prosecute any alcohol or drug abuse patient.[facility] HospitalIn the event this information is protected by the Federal Confidentiality of Alcohol and Drug Abuse Patient Records regulations: The Federal rules restrict any use of the information to criminally investigate or prosecute any alcohol or drug abuse patient.[facility] HospitalIn the event this information is protected by the Federal Confidentiality of Alcohol and Drug Abuse Patient Records regulations: The Federal rules restrict any use of the information to criminally investigate or prosecute any alcohol or drug abuse patient.[facility] HospitalIn the event this information is protected by the Federal Confidentiality of Alcohol and Drug Abuse Patient Records regulations: The Federal rules restrict any use of the information to criminally investigate or prosecute any alcohol or drug abuse patient.[facility] HospitalIn the event this information is protected by the Federal Confidentiality of Alcohol and Drug Abuse Patient Records regulations: The Federal rules restrict any use of the information to criminally investigate or prosecute any alcohol or drug abuse patient.[facility] HospitalIn the event this information is protected by the Federal Confidentiality of Alcohol and Drug Abuse Patient Records regulations: The Federal rules restrict any use of the information to criminally investigate or prosecute any alcohol or drug abuse patient.[facility] HospitalIn the event this information is protected by the Federal Confidentiality of Alcohol and Drug Abuse Patient Records regulations: The Federal rules restrict any use of the information to criminally investigate or prosecute any alcohol or drug abuse patient.[facility] HospitalIn the event this information is protected by the Federal Confidentiality of Alcohol and Drug Abuse Patient Records regulations: The Federal rules restrict any use of the information to criminally investigate or prosecute any alcohol or drug abuse patient.[facility] HospitalIn the event this information is protected by the Federal Confidentiality of Alcohol and Drug Abuse Patient Records regulations: The Federal rules restrict any use of the information to criminally investigate or prosecute any alcohol or drug abuse patient.[facility] HospitalIn the event this information is protected by the Federal Confidentiality of Alcohol and Drug Abuse Patient Records regulations: The Federal rules restrict any use of the information to criminally investigate or prosecute any alcohol or drug abuse patient.[facility] HospitalIn the event this information is protected by the Federal Confidentiality of Alcohol and Drug Abuse Patient Records regulations: The Federal rules restrict any use of the information to criminally investigate or prosecute any alcohol or drug abuse patient.[facility] HospitalIn the event this information is protected by the Federal Confidentiality of Alcohol and Drug Abuse Patient Records regulations: The Federal rules restrict any use of the information to criminally investigate or prosecute any alcohol or drug abuse patient.[facility] HospitalIn the event this information is protected by the Federal Confidentiality of Alcohol and Drug Abuse Patient Records regulations: The Federal rules restrict any use of the information to criminally investigate or prosecute any alcohol or drug abuse patient.[facility] HospitalIn the event this information is protected by the Federal Confidentiality of Alcohol and Drug Abuse Patient Records regulations: The Federal rules restrict any use of the information to criminally investigate or prosecute any alcohol or drug abuse patient.[facility] HospitalIn the event this information is protected by the Federal Confidentiality of Alcohol and Drug Abuse Patient Records regulations: The Federal rules restrict any use of the information to criminally investigate or prosecute any alcohol or drug abuse patient.[facility] HospitalIn the event this information is protected by the Federal Confidentiality of Alcohol and Drug Abuse Patient Records regulations: The Federal rules restrict any use of the information to criminally investigate or prosecute any alcohol or drug abuse patient.[facility] HospitalIn the event this information is protected by the Federal Confidentiality of Alcohol and Drug Abuse Patient Records regulations: The Federal rules restrict any use of the information to criminally investigate or prosecute any alcohol or drug abuse patient.[facility] HospitalIn the event this information is protected by the Federal Confidentiality of Alcohol and Drug Abuse Patient Records regulations: The Federal rules restrict any use of the information to criminally investigate or prosecute any alcohol or drug abuse patient.[facility] HospitalIn the event this information is protected by the Federal Confidentiality of Alcohol and Drug Abuse Patient Records regulations: The Federal rules restrict any use of the information to criminally investigate or prosecute any alcohol or drug abuse patient.[facility] HospitalIn the event this information is protected by the Federal Confidentiality of Alcohol and Drug Abuse Patient Records regulations: The Federal rules restrict any use of the information to criminally investigate or prosecute any alcohol or drug abuse patient.[facility] HospitalIn the event this information is protected by the Federal Confidentiality of Alcohol and Drug Abuse Patient Records regulations: The Federal rules restrict any use of the information to criminally investigate or prosecute any alcohol or drug abuse patient.[facility] HospitalIn the event this information is protected by the Federal Confidentiality of Alcohol and Drug Abuse Patient Records regulations: The Federal rules restrict any use of the information to criminally investigate or prosecute any alcohol or drug abuse patient.[facility] HospitalIn the event this information is protected by the Federal Confidentiality of Alcohol and Drug Abuse Patient Records regulations: The Federal rules restrict any use of the information to criminally investigate or prosecute any alcohol or drug abuse patient.[facility] HospitalIn the event this information is protected by the Federal Confidentiality of Alcohol and Drug Abuse Patient Records regulations: The Federal rules restrict any use of the information to criminally investigate or prosecute any alcohol or drug abuse patient.[facility] HospitalIn the event this information is protected by the Federal Confidentiality of Alcohol and Drug Abuse Patient Records regulations: The Federal rules restrict any use of the information to criminally investigate or prosecute any alcohol or drug abuse patient.[facility] HospitalIn the event this information is protected by the Federal Confidentiality of Alcohol and Drug Abuse Patient Records regulations: The Federal rules restrict any use of the information to criminally investigate or prosecute any alcohol or drug abuse patient.[facility] HospitalIn the event this information is protected by the Federal Confidentiality of Alcohol and Drug Abuse Patient Records regulations: The Federal rules restrict any use of the information to criminally investigate or prosecute any alcohol or drug abuse patient.[facility] HospitalIn the event this information is protected by the Federal Confidentiality of Alcohol and Drug Abuse Patient Records regulations: The Federal rules restrict any use of the information to criminally investigate or prosecute any alcohol or drug abuse patient.[facility] HospitalIn the event this information is protected by the Federal Confidentiality of Alcohol and Drug Abuse Patient Records regulations: The Federal rules restrict any use of the information to criminally investigate or prosecute any alcohol or drug abuse patient.[facility] HospitalIn the event this information is protected by the Federal Confidentiality of Alcohol and Drug Abuse Patient Records regulations: The Federal rules restrict any use of the information to criminally investigate or prosecute any alcohol or drug abuse patient.[facility] HospitalIn the event this information is protected by the Federal Confidentiality of Alcohol and Drug Abuse Patient Records regulations: The Federal rules restrict any use of the information to criminally investigate or prosecute any alcohol or drug abuse patient.[facility] HospitalIn the event this information is protected by the Federal Confidentiality of Alcohol and Drug Abuse Patient Records regulations: The Federal rules restrict any use of the information to criminally investigate or prosecute any alcohol or drug abuse patient.[facility] HospitalIn the event this information is protected by the Federal Confidentiality of Alcohol and Drug Abuse Patient Records regulations: The Federal rules restrict any use of the information to criminally investigate or prosecute any alcohol or drug abuse patient.[facility] HospitalIn the event this information is protected by the Federal Confidentiality of Alcohol and Drug Abuse Patient Records regulations: The Federal rules restrict any use of the information to criminally investigate or prosecute any alcohol or drug abuse patient.[facility] HospitalIn the event this information is protected by the Federal Confidentiality of Alcohol and Drug Abuse Patient Records regulations: The Federal rules restrict any use of the information to criminally investigate or prosecute any alcohol or drug abuse patient.[facility] HospitalIn the event this information is protected by the Federal Confidentiality of Alcohol and Drug Abuse Patient Records regulations: The Federal rules restrict any use of the information to criminally investigate or prosecute any alcohol or drug abuse patient.[facility] HospitalIn the event this information is protected by the Federal Confidentiality of Alcohol and Drug Abuse Patient Records regulations: The Federal rules restrict any use of the information to criminally investigate or prosecute any alcohol or drug abuse patient.[facility] HospitalIn the event this information is protected by the Federal Confidentiality of Alcohol and Drug Abuse Patient Records regulations: The Federal rules restrict any use of the information to criminally investigate or prosecute any alcohol or drug abuse patient.[facility] HospitalIn the event this information is protected by the Federal Confidentiality of Alcohol and Drug Abuse Patient Records regulations: The Federal rules restrict any use of the information to criminally investigate or prosecute any alcohol or drug abuse patient.[facility] HospitalIn the event this information is protected by the Federal Confidentiality of Alcohol and Drug Abuse Patient Records regulations: The Federal rules restrict any use of the information to criminally investigate or prosecute any alcohol or drug abuse patient.[facility] HospitalIn the event this information is protected by the Federal Confidentiality of Alcohol and Drug Abuse Patient Records regulations: The Federal rules restrict any use of the information to criminally investigate or prosecute any alcohol or drug abuse patient.[facility] HospitalIn the event this information is protected by the Federal Confidentiality of Alcohol and Drug Abuse Patient Records regulations: The Federal rules restrict any use of the information to criminally investigate or prosecute any alcohol or drug abuse patient.[facility] HospitalIn the event this information is protected by the Federal Confidentiality of Alcohol and Drug Abuse Patient Records regulations: The Federal rules restrict any use of the information to criminally investigate or prosecute any alcohol or drug abuse patient.[facility] HospitalIn the event this information is protected by the Federal Confidentiality of Alcohol and Drug Abuse Patient Records regulations: The Federal rules restrict any use of the information to criminally investigate or prosecute any alcohol or drug abuse patient.[facility] HospitalIn the event this information is protected by the Federal Confidentiality of Alcohol and Drug Abuse Patient Records regulations: The Federal rules restrict any use of the information to criminally investigate or prosecute any alcohol or drug abuse patient.[facility] HospitalIn the event this information is protected by the Federal Confidentiality of Alcohol and Drug Abuse Patient Records regulations: The Federal rules restrict any use of the information to criminally investigate or prosecute any alcohol or drug abuse patient.[facility] HospitalIn the event this information is protected by the Federal Confidentiality of Alcohol and Drug Abuse Patient Records regulations: The Federal rules restrict any use of the information to criminally investigate or prosecute any alcohol or drug abuse patient.[facility] HospitalIn the event this information is protected by the Federal Confidentiality of Alcohol and Drug Abuse Patient Records regulations: The Federal rules restrict any use of the information to criminally investigate or prosecute any alcohol or drug abuse patient.[facility] HospitalIn the event this information is protected by the Federal Confidentiality of Alcohol and Drug Abuse Patient Records regulations: The Federal rules restrict any use of the information to criminally investigate or prosecute any alcohol or drug abuse patient.[facility] HospitalIn the event this information is protected by the Federal Confidentiality of Alcohol and Drug Abuse Patient Records regulations: The Federal rules restrict any use of the information to criminally investigate or prosecute any alcohol or drug abuse patient.[facility] HospitalIn the event this information is protected by the Federal Confidentiality of Alcohol and Drug Abuse Patient Records regulations: The Federal rules restrict any use of the information to criminally investigate or prosecute any alcohol or drug abuse patient.[facility] HospitalIn the event this information is protected by the Federal Confidentiality of Alcohol and Drug Abuse Patient Records regulations: The Federal rules restrict any use of the information to criminally investigate or prosecute any alcohol or drug abuse patient.[facility] HospitalIn the event this information is protected by the Federal Confidentiality of Alcohol and Drug Abuse Patient Records regulations: The Federal rules restrict any use of the information to criminally investigate or prosecute any alcohol or drug abuse patient.[facility] HospitalIn the event this information is protected by the Federal Confidentiality of Alcohol and Drug Abuse Patient Records regulations: The Federal rules restrict any use of the information to criminally investigate or prosecute any alcohol or drug abuse patient.[facility] HospitalIn the event this information is protected by the Federal Confidentiality of Alcohol and Drug Abuse Patient Records regulations: The Federal rules restrict any use of the information to criminally investigate or prosecute any alcohol or drug abuse patient.[facility] HospitalIn the event this information is protected by the Federal Confidentiality of Alcohol and Drug Abuse Patient Records regulations: The Federal rules restrict any use of the information to criminally investigate or prosecute any alcohol or drug abuse patient.[facility] HospitalIn the event this information is protected by the Federal Confidentiality of Alcohol and Drug Abuse Patient Records regulations: The Federal rules restrict any use of the information to criminally investigate or prosecute any alcohol or drug abuse patient.[facility] HospitalIn the event this information is protected by the Federal Confidentiality of Alcohol and Drug Abuse Patient Records regulations: The Federal rules restrict any use of the information to criminally investigate or prosecute any alcohol or drug abuse patient.[facility] HospitalIn the event this information is protected by the Federal Confidentiality of Alcohol and Drug Abuse Patient Records regulations: The Federal rules restrict any use of the information to criminally investigate or prosecute any alcohol or drug abuse patient.[facility] HospitalIn the event this information is protected by the Federal Confidentiality of Alcohol and Drug Abuse Patient Records regulations: The Federal rules restrict any use of the information to criminally investigate or prosecute any alcohol or drug abuse patient.[facility] HospitalIn the event this information is protected by the Federal Confidentiality of Alcohol and Drug Abuse Patient Records regulations: The Federal rules restrict any use of the information to criminally investigate or prosecute any alcohol or drug abuse patient.[facility] HospitalIn the event this information is protected by the Federal Confidentiality of Alcohol and Drug Abuse Patient Records regulations: The Federal rules restrict any use of the information to criminally investigate or prosecute any alcohol or drug abuse patient.[facility] HospitalIn the event this information is protected by the Federal Confidentiality of Alcohol and Drug Abuse Patient Records regulations: The Federal rules restrict any use of the information to criminally investigate or prosecute any alcohol or drug abuse patient.[facility] HospitalIn the event this information is protected by the Federal Confidentiality of Alcohol and Drug Abuse Patient Records regulations: The Federal rules restrict any use of the information to criminally investigate or prosecute any alcohol or drug abuse patient.[facility] HospitalIn the event this information is protected by the Federal Confidentiality of Alcohol and Drug Abuse Patient Records regulations: The Federal rules restrict any use of the information to criminally investigate or prosecute any alcohol or drug abuse patient.[facility] HospitalIn the event this information is protected by the Federal Confidentiality of Alcohol and Drug Abuse Patient Records regulations: The Federal rules restrict any use of the information to criminally investigate or prosecute any alcohol or drug abuse patient.[facility] HospitalIn the event this information is protected by the Federal Confidentiality of Alcohol and Drug Abuse Patient Records regulations: The Federal rules restrict any use of the information to criminally investigate or prosecute any alcohol or drug abuse patient.[facility] HospitalIn the event this information is protected by the Federal Confidentiality of Alcohol and Drug Abuse Patient Records regulations: The Federal rules restrict any use of the information to criminally investigate or prosecute any alcohol or drug abuse patient.[facility] HospitalIn the event this information is protected by the Federal Confidentiality of Alcohol and Drug Abuse Patient Records regulations: The Federal rules restrict any use of the information to criminally investigate or prosecute any alcohol or drug abuse patient.[facility] HospitalIn the event this information is protected by the Federal Confidentiality of Alcohol and Drug Abuse Patient Records regulations: The Federal rules restrict any use of the information to criminally investigate or prosecute any alcohol or drug abuse patient.[facility] HospitalIn the event this information is protected by the Federal Confidentiality of Alcohol and Drug Abuse Patient Records regulations: The Federal rules restrict any use of the information to criminally investigate or prosecute any alcohol or drug abuse patient.[facility] HospitalIn the event this information is protected by the Federal Confidentiality of Alcohol and Drug Abuse Patient Records regulations: The Federal rules restrict any use of the information to criminally investigate or prosecute any alcohol or drug abuse patient.[facility] HospitalIn the event this information is protected by the Federal Confidentiality of Alcohol and Drug Abuse Patient Records regulations: The Federal rules restrict any use of the information to criminally investigate or prosecute any alcohol or drug abuse patient.[facility] HospitalIn the event this information is protected by the Federal Confidentiality of Alcohol and Drug Abuse Patient Records regulations: The Federal rules restrict any use of the information to criminally investigate or prosecute any alcohol or drug abuse patient.[facility] HospitalIn the event this information is protected by the Federal Confidentiality of Alcohol and Drug Abuse Patient Records regulations: The Federal rules restrict any use of the information to criminally investigate or prosecute any alcohol or drug abuse patient.[facility] HospitalIn the event this information is protected by the Federal Confidentiality of Alcohol and Drug Abuse Patient Records regulations: The Federal rules restrict any use of the information to criminally investigate or prosecute any alcohol or drug abuse patient.[facility] HospitalIn the event this information is protected by the Federal Confidentiality of Alcohol and Drug Abuse Patient Records regulations: The Federal rules restrict any use of the information to criminally investigate or prosecute any alcohol or drug abuse patient.[facility] HospitalIn the event this information is protected by the Federal Confidentiality of Alcohol and Drug Abuse Patient Records regulations: The Federal rules restrict any use of the information to criminally investigate or prosecute any alcohol or drug abuse patient.[facility] HospitalIn the event this information is protected by the Federal Confidentiality of Alcohol and Drug Abuse Patient Records regulations: The Federal rules restrict any use of the information to criminally investigate or prosecute any alcohol or drug abuse patient.[facility] HospitalIn the event this information is protected by the Federal Confidentiality of Alcohol and Drug Abuse Patient Records regulations: The Federal rules restrict any use of the information to criminally investigate or prosecute any alcohol or drug abuse patient.[facility] HospitalIn the event this information is protected by the Federal Confidentiality of Alcohol and Drug Abuse Patient Records regulations: The Federal rules restrict any use of the information to criminally investigate or prosecute any alcohol or drug abuse patient.[facility] HospitalIn the event this information is protected by the Federal Confidentiality of Alcohol and Drug Abuse Patient Records regulations: The Federal rules restrict any use of the information to criminally investigate or prosecute any alcohol or drug abuse patient.[facility] HospitalIn the event this information is protected by the Federal Confidentiality of Alcohol and Drug Abuse Patient Records regulations: The Federal rules restrict any use of the information to criminally investigate or prosecute any alcohol or drug abuse patient.[facility] HospitalIn the event this information is protected by the Federal Confidentiality of Alcohol and Drug Abuse Patient Records regulations: The Federal rules restrict any use of the information to criminally investigate or prosecute any alcohol or drug abuse patient.[facility] HospitalIn the event this information is protected by the Federal Confidentiality of Alcohol and Drug Abuse Patient Records regulations: The Federal rules restrict any use of the information to criminally investigate or prosecute any alcohol or drug abuse patient.[facility] HospitalIn the event this information is protected by the Federal Confidentiality of Alcohol and Drug Abuse Patient Records regulations: The Federal rules restrict any use of the information to criminally investigate or prosecute any alcohol or drug abuse patient.[facility] HospitalIn the event this information is protected by the Federal Confidentiality of Alcohol and Drug Abuse Patient Records regulations: The Federal rules restrict any use of the information to criminally investigate or prosecute any alcohol or drug abuse patient.[facility] HospitalIn the event this information is protected by the Federal Confidentiality of Alcohol and Drug Abuse Patient Records regulations: The Federal rules restrict any use of the information to criminally investigate or prosecute any alcohol or drug abuse patient.[facility] HospitalIn the event this information is protected by the Federal Confidentiality of Alcohol and Drug Abuse Patient Records regulations: The Federal rules restrict any use of the information to criminally investigate or prosecute any alcohol or drug abuse patient.[facility] HospitalIn the event this information is protected by the Federal Confidentiality of Alcohol and Drug Abuse Patient Records regulations: The Federal rules restrict any use of the information to criminally investigate or prosecute any alcohol or drug abuse patient.[facility] HospitalIn the event this information is protected by the Federal Confidentiality of Alcohol and Drug Abuse Patient Records regulations: The Federal rules restrict any use of the information to criminally investigate or prosecute any alcohol or drug abuse patient.[facility] HospitalIn the event this information is protected by the Federal Confidentiality of Alcohol and Drug Abuse Patient Records regulations: The Federal rules restrict any use of the information to criminally investigate or prosecute any alcohol or drug abuse patient.[facility] HospitalIn the event this information is protected by the Federal Confidentiality of Alcohol and Drug Abuse Patient Records regulations: The Federal rules restrict any use of the information to criminally investigate or prosecute any alcohol or drug abuse patient.[facility] HospitalIn the event this information is protected by the Federal Confidentiality of Alcohol and Drug Abuse Patient Records regulations: The Federal rules restrict any use of the information to criminally investigate or prosecute any alcohol or drug abuse patient.[facility] HospitalIn the event this information is protected by the Federal Confidentiality of Alcohol and Drug Abuse Patient Records regulations: The Federal rules restrict any use of the information to criminally investigate or prosecute any alcohol or drug abuse patient.[facility] HospitalIn the event this information is protected by the Federal Confidentiality of Alcohol and Drug Abuse Patient Records regulations: The Federal rules restrict any use of the information to criminally investigate or prosecute any alcohol or drug abuse patient.[facility] HospitalIn the event this information is protected by the Federal Confidentiality of Alcohol and Drug Abuse Patient Records regulations: The Federal rules restrict any use of the information to criminally investigate or prosecute any alcohol or drug abuse patient.[facility] HospitalIn the event this information is protected by the Federal Confidentiality of Alcohol and Drug Abuse Patient Records regulations: The Federal rules restrict any use of the information to criminally investigate or prosecute any alcohol or drug abuse patient.[facility] HospitalIn the event this information is protected by the Federal Confidentiality of Alcohol and Drug Abuse Patient Records regulations: The Federal rules restrict any use of the information to criminally investigate or prosecute any alcohol or drug abuse patient.[facility] HospitalIn the event this information is protected by the Federal Confidentiality of Alcohol and Drug Abuse Patient Records regulations: The Federal rules restrict any use of the information to criminally investigate or prosecute any alcohol or drug abuse patient.[facility] HospitalIn the event this information is protected by the Federal Confidentiality of Alcohol and Drug Abuse Patient Records regulations: The Federal rules restrict any use of the information to criminally investigate or prosecute any alcohol or drug abuse patient.[facility] HospitalIn the event this information is protected by the Federal Confidentiality of Alcohol and Drug Abuse Patient Records regulations: The Federal rules restrict any use of the information to criminally investigate or prosecute any alcohol or drug abuse patient.[facility] HospitalIn the event this information is protected by the Federal Confidentiality of Alcohol and Drug Abuse Patient Records regulations: The Federal rules restrict any use of the information to criminally investigate or prosecute any alcohol or drug abuse patient.[facility] HospitalIn the event this information is protected by the Federal Confidentiality of Alcohol and Drug Abuse Patient Records regulations: The Federal rules restrict any use of the information to criminally investigate or prosecute any alcohol or drug abuse patient.[facility] HospitalIn the event this information is protected by the Federal Confidentiality of Alcohol and Drug Abuse Patient Records regulations: The Federal rules restrict any use of the information to criminally investigate or prosecute any alcohol or drug abuse patient.[facility] HospitalIn the event this information is protected by the Federal Confidentiality of Alcohol and Drug Abuse Patient Records regulations: The Federal rules restrict any use of the information to criminally investigate or prosecute any alcohol or drug abuse patient.[facility] HospitalIn the event this information is protected by the Federal Confidentiality of Alcohol and Drug Abuse Patient Records regulations: The Federal rules restrict any use of the information to criminally investigate or prosecute any alcohol or drug abuse patient.[facility] HospitalIn the event this information is protected by the Federal Confidentiality of Alcohol and Drug Abuse Patient Records regulations: The Federal rules restrict any use of the information to criminally investigate or prosecute any alcohol or drug abuse patient.[facility] HospitalIn the event this information is protected by the Federal Confidentiality of Alcohol and Drug Abuse Patient Records regulations: The Federal rules restrict any use of the information to criminally investigate or prosecute any alcohol or drug abuse patient.[facility] HospitalIn the event this information is protected by the Federal Confidentiality of Alcohol and Drug Abuse Patient Records regulations: The Federal rules restrict any use of the information to criminally investigate or prosecute any alcohol or drug abuse patient.[facility] HospitalIn the event this information is protected by the Federal Confidentiality of Alcohol and Drug Abuse Patient Records regulations: The Federal rules restrict any use of the information to criminally investigate or prosecute any alcohol or drug abuse patient.[facility] HospitalIn the event this information is protected by the Federal Confidentiality of Alcohol and Drug Abuse Patient Records regulations: The Federal rules restrict any use of the information to criminally investigate or prosecute any alcohol or drug abuse patient.[facility] HospitalIn the event this information is protected by the Federal Confidentiality of Alcohol and Drug Abuse Patient Records regulations: The Federal rules restrict any use of the information to criminally investigate or prosecute any alcohol or drug abuse patient.[facility] HospitalIn the event this information is protected by the Federal Confidentiality of Alcohol and Drug Abuse Patient Records regulations: The Federal rules restrict any use of the information to criminally investigate or prosecute any alcohol or drug abuse patient.[facility] HospitalIn the event this information is protected by the Federal Confidentiality of Alcohol and Drug Abuse Patient Records regulations: The Federal rules restrict any use of the information to criminally investigate or prosecute any alcohol or drug abuse patient.[facility] HospitalIn the event this information is protected by the Federal Confidentiality of Alcohol and Drug Abuse Patient Records regulations: The Federal rules restrict any use of the information to criminally investigate or prosecute any alcohol or drug abuse patient.[facility] HospitalIn the event this information is protected by the Federal Confidentiality of Alcohol and Drug Abuse Patient Records regulations: The Federal rules restrict any use of the information to criminally investigate or prosecute any alcohol or drug abuse patient.[facility] HospitalIn the event this information is protected by the Federal Confidentiality of Alcohol and Drug Abuse Patient Records regulations: The Federal rules restrict any use of the information to criminally investigate or prosecute any alcohol or drug abuse patient.[facility] HospitalIn the event this information is protected by the Federal Confidentiality of Alcohol and Drug Abuse Patient Records regulations: The Federal rules restrict any use of the information to criminally investigate or prosecute any alcohol or drug abuse patient.[facility] HospitalIn the event this information is protected by the Federal Confidentiality of Alcohol and Drug Abuse Patient Records regulations: The Federal rules restrict any use of the information to criminally investigate or prosecute any alcohol or drug abuse patient.[facility] HospitalIn the event this information is protected by the Federal Confidentiality of Alcohol and Drug Abuse Patient Records regulations: The Federal rules restrict any use of the information to criminally investigate or prosecute any alcohol or drug abuse patient.[facility] HospitalIn the event this information is protected by the Federal Confidentiality of Alcohol and Drug Abuse Patient Records regulations: The Federal rules restrict any use of the information to criminally investigate or prosecute any alcohol or drug abuse patient.[facility] HospitalIn the event this information is protected by the Federal Confidentiality of Alcohol and Drug Abuse Patient Records regulations: The Federal rules restrict any use of the information to criminally investigate or prosecute any alcohol or drug abuse patient.[facility] HospitalIn the event this information is protected by the Federal Confidentiality of Alcohol and Drug Abuse Patient Records regulations: The Federal rules restrict any use of the information to criminally investigate or prosecute any alcohol or drug abuse patient.[facility] HospitalIn the event this information is protected by the Federal Confidentiality of Alcohol and Drug Abuse Patient Records regulations: The Federal rules restrict any use of the information to criminally investigate or prosecute any alcohol or drug abuse patient.[facility] HospitalIn the event this information is protected by the Federal Confidentiality of Alcohol and Drug Abuse Patient Records regulations: The Federal rules restrict any use of the information to criminally investigate or prosecute any alcohol or drug abuse patient.[facility] HospitalIn the event this information is protected by the Federal Confidentiality of Alcohol and Drug Abuse Patient Records regulations: The Federal rules restrict any use of the information to criminally investigate or prosecute any alcohol or drug abuse patient.[facility] HospitalIn the event this information is protected by the Federal Confidentiality of Alcohol and Drug Abuse Patient Records regulations: The Federal rules restrict any use of the information to criminally investigate or prosecute any alcohol or drug abuse patient.[facility] HospitalIn the event this information is protected by the Federal Confidentiality of Alcohol and Drug Abuse Patient Records regulations: The Federal rules restrict any use of the information to criminally investigate or prosecute any alcohol or drug abuse patient.[facility] HospitalIn the event this information is protected by the Federal Confidentiality of Alcohol and Drug Abuse Patient Records regulations: The Federal rules restrict any use of the information to criminally investigate or prosecute any alcohol or drug abuse patient.[facility] HospitalIn the event this information is protected by the Federal Confidentiality of Alcohol and Drug Abuse Patient Records regulations: The Federal rules restrict any use of the information to criminally investigate or prosecute any alcohol or drug abuse patient.[facility] HospitalIn the event this information is protected by the Federal Confidentiality of Alcohol and Drug Abuse Patient Records regulations: The Federal rules restrict any use of the information to criminally investigate or prosecute any alcohol or drug abuse patient.[facility] HospitalIn the event this information is protected by the Federal Confidentiality of Alcohol and Drug Abuse Patient Records regulations: The Federal rules restrict any use of the information to criminally investigate or prosecute any alcohol or drug abuse patient.[facility] HospitalIn the event this information is protected by the Federal Confidentiality of Alcohol and Drug Abuse Patient Records regulations: The Federal rules restrict any use of the information to criminally investigate or prosecute any alcohol or drug abuse patient.[facility] HospitalIn the event this information is protected by the Federal Confidentiality of Alcohol and Drug Abuse Patient Records regulations: The Federal rules restrict any use of the information to criminally investigate or prosecute any alcohol or drug abuse patient.[facility] HospitalIn the event this information is protected by the Federal Confidentiality of Alcohol and Drug Abuse Patient Records regulations: The Federal rules restrict any use of the information to criminally investigate or prosecute any alcohol or drug abuse patient.[facility] HospitalIn the event this information is protected by the Federal Confidentiality of Alcohol and Drug Abuse Patient Records regulations: The Federal rules restrict any use of the information to criminally investigate or prosecute any alcohol or drug abuse patient.[facility] HospitalIn the event this information is protected by the Federal Confidentiality of Alcohol and Drug Abuse Patient Records regulations: The Federal rules restrict any use of the information to criminally investigate or prosecute any alcohol or drug abuse patient.[facility] HospitalIn the event this information is protected by the Federal Confidentiality of Alcohol and Drug Abuse Patient Records regulations: The Federal rules restrict any use of the information to criminally investigate or prosecute any alcohol or drug abuse patient.[facility] HospitalIn the event this information is protected by the Federal Confidentiality of Alcohol and Drug Abuse Patient Records regulations: The Federal rules restrict any use of the information to criminally investigate or prosecute any alcohol or drug abuse patient.[facility] HospitalIn the event this information is protected by the Federal Confidentiality of Alcohol and Drug Abuse Patient Records regulations: The Federal rules restrict any use of the information to criminally investigate or prosecute any alcohol or drug abuse patient.[facility] HospitalIn the event this information is protected by the Federal Confidentiality of Alcohol and Drug Abuse Patient Records regulations: The Federal rules restrict any use of the information to criminally investigate or prosecute any alcohol or drug abuse patient.[facility] HospitalIn the event this information is protected by the Federal Confidentiality of Alcohol and Drug Abuse Patient Records regulations: The Federal rules restrict any use of the information to criminally investigate or prosecute any alcohol or drug abuse patient.[facility] HospitalIn the event this information is protected by the Federal Confidentiality of Alcohol and Drug Abuse Patient Records regulations: The Federal rules restrict any use of the information to criminally investigate or prosecute any alcohol or drug abuse patient.[facility] HospitalIn the event this information is protected by the Federal Confidentiality of Alcohol and Drug Abuse Patient Records regulations: The Federal rules restrict any use of the information to criminally investigate or prosecute any alcohol or drug abuse patient.[facility] HospitalIn the event this information is protected by the Federal Confidentiality of Alcohol and Drug Abuse Patient Records regulations: The Federal rules restrict any use of the information to criminally investigate or prosecute any alcohol or drug abuse patient.[facility] HospitalIn the event this information is protected by the Federal Confidentiality of Alcohol and Drug Abuse Patient Records regulations: The Federal rules restrict any use of the information to criminally investigate or prosecute any alcohol or drug abuse patient.[facility] HospitalIn the event this information is protected by the Federal Confidentiality of Alcohol and Drug Abuse Patient Records regulations: The Federal rules restrict any use of the information to criminally investigate or prosecute any alcohol or drug abuse patient.[facility] HospitalIn the event this information is protected by the Federal Confidentiality of Alcohol and Drug Abuse Patient Records regulations: The Federal rules restrict any use of the information to criminally investigate or prosecute any alcohol or drug abuse patient.[facility] HospitalIn the event this information is protected by the Federal Confidentiality of Alcohol and Drug Abuse Patient Records regulations: The Federal rules restrict any use of the information to criminally investigate or prosecute any alcohol or drug abuse patient.[facility] HospitalIn the event this information is protected by the Federal Confidentiality of Alcohol and Drug Abuse Patient Records regulations: The Federal rules restrict any use of the information to criminally investigate or prosecute any alcohol or drug abuse patient.[facility] HospitalIn the event this information is protected by the Federal Confidentiality of Alcohol and Drug Abuse Patient Records regulations: The Federal rules restrict any use of the information to criminally investigate or prosecute any alcohol or drug abuse patient.[facility] HospitalIn the event this information is protected by the Federal Confidentiality of Alcohol and Drug Abuse Patient Records regulations: The Federal rules restrict any use of the information to criminally investigate or prosecute any alcohol or drug abuse patient.[facility] HospitalIn the event this information is protected by the Federal Confidentiality of Alcohol and Drug Abuse Patient Records regulations: The Federal rules restrict any use of the information to criminally investigate or prosecute any alcohol or drug abuse patient.[facility] HospitalIn the event this information is protected by the Federal Confidentiality of Alcohol and Drug Abuse Patient Records regulations: The Federal rules restrict any use of the information to criminally investigate or prosecute any alcohol or drug abuse patient.[facility] HospitalIn the event this information is protected by the Federal Confidentiality of Alcohol and Drug Abuse Patient Records regulations: The Federal rules restrict any use of the information to criminally investigate or prosecute any alcohol or drug abuse patient.[facility] HospitalIn the event this information is protected by the Federal Confidentiality of Alcohol and Drug Abuse Patient Records regulations: The Federal rules restrict any use of the information to criminally investigate or prosecute any alcohol or drug abuse patient.[facility] HospitalIn the event this information is protected by the Federal Confidentiality of Alcohol and Drug Abuse Patient Records regulations: The Federal rules restrict any use of the information to criminally investigate or prosecute any alcohol or drug abuse patient.[facility] HospitalIn the event this information is protected by the Federal Confidentiality of Alcohol and Drug Abuse Patient Records regulations: The Federal rules restrict any use of the information to criminally investigate or prosecute any alcohol or drug abuse patient.[facility] HospitalIn the event this information is protected by the Federal Confidentiality of Alcohol and Drug Abuse Patient Records regulations: The Federal rules restrict any use of the information to criminally investigate or prosecute any alcohol or drug abuse patient.[facility] HospitalIn the event this information is protected by the Federal Confidentiality of Alcohol and Drug Abuse Patient Records regulations: The Federal rules restrict any use of the information to criminally investigate or prosecute any alcohol or drug abuse patient.[facility] HospitalIn the event this information is protected by the Federal Confidentiality of Alcohol and Drug Abuse Patient Records regulations: The Federal rules restrict any use of the information to criminally investigate or prosecute any alcohol or drug abuse patient.[facility] HospitalIn the event this information is protected by the Federal Confidentiality of Alcohol and Drug Abuse Patient Records regulations: The Federal rules restrict any use of the information to criminally investigate or prosecute any alcohol or drug abuse patient.[facility] HospitalIn the event this information is protected by the Federal Confidentiality of Alcohol and Drug Abuse Patient Records regulations: The Federal rules restrict any use of the information to criminally investigate or prosecute any alcohol or drug abuse patient.[facility] HospitalIn the event this information is protected by the Federal Confidentiality of Alcohol and Drug Abuse Patient Records regulations: The Federal rules restrict any use of the information to criminally investigate or prosecute any alcohol or drug abuse patient.[facility] HospitalIn the event this information is protected by the Federal Confidentiality of Alcohol and Drug Abuse Patient Records regulations: The Federal rules restrict any use of the information to criminally investigate or prosecute any alcohol or drug abuse patient.[facility] HospitalIn the event this information is protected by the Federal Confidentiality of Alcohol and Drug Abuse Patient Records regulations: The Federal rules restrict any use of the information to criminally investigate or prosecute any alcohol or drug abuse patient.[facility] HospitalIn the event this information is protected by the Federal Confidentiality of Alcohol and Drug Abuse Patient Records regulations: The Federal rules restrict any use of the information to criminally investigate or prosecute any alcohol or drug abuse patient.[facility] HospitalIn the event this information is protected by the Federal Confidentiality of Alcohol and Drug Abuse Patient Records regulations: The Federal rules restrict any use of the information to criminally investigate or prosecute any alcohol or drug abuse patient.[facility] HospitalIn the event this information is protected by the Federal Confidentiality of Alcohol and Drug Abuse Patient Records regulations: The Federal rules restrict any use of the information to criminally investigate or prosecute any alcohol or drug abuse patient.[facility] HospitalIn the event this information is protected by the Federal Confidentiality of Alcohol and Drug Abuse Patient Records regulations: The Federal rules restrict any use of the information to criminally investigate or prosecute any alcohol or drug abuse patient.[facility] HospitalIn the event this information is protected by the Federal Confidentiality of Alcohol and Drug Abuse Patient Records regulations: The Federal rules restrict any use of the information to criminally investigate or prosecute any alcohol or drug abuse patient.[facility] HospitalIn the event this information is protected by the Federal Confidentiality of Alcohol and Drug Abuse Patient Records regulations: The Federal rules restrict any use of the information to criminally investigate or prosecute any alcohol or drug abuse patient.[facility] HospitalIn the event this information is protected by the Federal Confidentiality of Alcohol and Drug Abuse Patient Records regulations: The Federal rules restrict any use of the information to criminally investigate or prosecute any alcohol or drug abuse patient.[facility] HospitalIn the event this information is protected by the Federal Confidentiality of Alcohol and Drug Abuse Patient Records regulations: The Federal rules restrict any use of the information to criminally investigate or prosecute any alcohol or drug abuse patient.[facility] HospitalIn the event this information is protected by the Federal Confidentiality of Alcohol and Drug Abuse Patient Records regulations: The Federal rules restrict any use of the information to criminally investigate or prosecute any alcohol or drug abuse patient.[facility] HospitalIn the event this information is protected by the Federal Confidentiality of Alcohol and Drug Abuse Patient Records regulations: The Federal rules restrict any use of the information to criminally investigate or prosecute any alcohol or drug abuse patient.[facility] HospitalIn the event this information is protected by the Federal Confidentiality of Alcohol and Drug Abuse Patient Records regulations: The Federal rules restrict any use of the information to criminally investigate or prosecute any alcohol or drug abuse patient.[facility] HospitalIn the event this information is protected by the Federal Confidentiality of Alcohol and Drug Abuse Patient Records regulations: The Federal rules restrict any use of the information to criminally investigate or prosecute any alcohol or drug abuse patient.[facility] HospitalIn the event this information is protected by the Federal Confidentiality of Alcohol and Drug Abuse Patient Records regulations: The Federal rules restrict any use of the information to criminally investigate or prosecute any alcohol or drug abuse patient.[facility] HospitalIn the event this information is protected by the Federal Confidentiality of Alcohol and Drug Abuse Patient Records regulations: The Federal rules restrict any use of the information to criminally investigate or prosecute any alcohol or drug abuse patient.[facility] HospitalIn the event this information is protected by the Federal Confidentiality of Alcohol and Drug Abuse Patient Records regulations: The Federal rules restrict any use of the information to criminally investigate or prosecute any alcohol or drug abuse patient.[facility] HospitalIn the event this information is protected by the Federal Confidentiality of Alcohol and Drug Abuse Patient Records regulations: The Federal rules restrict any use of the information to criminally investigate or prosecute any alcohol or drug abuse patient.[facility] HospitalIn the event this information is protected by the Federal Confidentiality of Alcohol and Drug Abuse Patient Records regulations: The Federal rules restrict any use of the information to criminally investigate or prosecute any alcohol or drug abuse patient.[facility] HospitalIn the event this information is protected by the Federal Confidentiality of Alcohol and Drug Abuse Patient Records regulations: The Federal rules restrict any use of the information to criminally investigate or prosecute any alcohol or drug abuse patient.[facility] HospitalIn the event this information is protected by the Federal Confidentiality of Alcohol and Drug Abuse Patient Records regulations: The Federal rules restrict any use of the information to criminally investigate or prosecute any alcohol or drug abuse patient.[facility] HospitalIn the event this information is protected by the Federal Confidentiality of Alcohol and Drug Abuse Patient Records regulations: The Federal rules restrict any use of the information to criminally investigate or prosecute any alcohol or drug abuse patient.[facility] HospitalIn the event this information is protected by the Federal Confidentiality of Alcohol and Drug Abuse Patient Records regulations: The Federal rules restrict any use of the information to criminally investigate or prosecute any alcohol or drug abuse patient.[facility] HospitalIn the event this information is protected by the Federal Confidentiality of Alcohol and Drug Abuse Patient Records regulations: The Federal rules restrict any use of the information to criminally investigate or prosecute any alcohol or drug abuse patient.[facility] HospitalIn the event this information is protected by the Federal Confidentiality of Alcohol and Drug Abuse Patient Records regulations: The Federal rules restrict any use of the information to criminally investigate or prosecute any alcohol or drug abuse patient.[facility] HospitalIn the event this information is protected by the Federal Confidentiality of Alcohol and Drug Abuse Patient Records regulations: The Federal rules restrict any use of the information to criminally investigate or prosecute any alcohol or drug abuse patient.[facility] HospitalIn the event this information is protected by the Federal Confidentiality of Alcohol and Drug Abuse Patient Records regulations: The Federal rules restrict any use of the information to criminally investigate or prosecute any alcohol or drug abuse patient.[facility] HospitalIn the event this information is protected by the Federal Confidentiality of Alcohol and Drug Abuse Patient Records regulations: The Federal rules restrict any use of the information to criminally investigate or prosecute any alcohol or drug abuse patient.[facility] HospitalIn the event this information is protected by the Federal Confidentiality of Alcohol and Drug Abuse Patient Records regulations: The Federal rules restrict any use of the information to criminally investigate or prosecute any alcohol or drug abuse patient.[facility] HospitalIn the event this information is protected by the Federal Confidentiality of Alcohol and Drug Abuse Patient Records regulations: The Federal rules restrict any use of the information to criminally investigate or prosecute any alcohol or drug abuse patient.[facility] HospitalIn the event this information is protected by the Federal Confidentiality of Alcohol and Drug Abuse Patient Records regulations: The Federal rules restrict any use of the information to criminally investigate or prosecute any alcohol or drug abuse patient.[facility] HospitalIn the event this information is protected by the Federal Confidentiality of Alcohol and Drug Abuse Patient Records regulations: The Federal rules restrict any use of the information to criminally investigate or prosecute any alcohol or drug abuse patient.[facility] HospitalIn the event this information is protected by the Federal Confidentiality of Alcohol and Drug Abuse Patient Records regulations: The Federal rules restrict any use of the information to criminally investigate or prosecute any alcohol or drug abuse patient.[facility] HospitalIn the event this information is protected by the Federal Confidentiality of Alcohol and Drug Abuse Patient Records regulations: The Federal rules restrict any use of the information to criminally investigate or prosecute any alcohol or drug abuse patient.[facility] HospitalIn the event this information is protected by the Federal Confidentiality of Alcohol and Drug Abuse Patient Records regulations: The Federal rules restrict any use of the information to criminally investigate or prosecute any alcohol or drug abuse patient.[facility] HospitalIn the event this information is protected by the Federal Confidentiality of Alcohol and Drug Abuse Patient Records regulations: The Federal rules restrict any use of the information to criminally investigate or prosecute any alcohol or drug abuse patient.[facility] HospitalIn the event this information is protected by the Federal Confidentiality of Alcohol and Drug Abuse Patient Records regulations: The Federal rules restrict any use of the information to criminally investigate or prosecute any alcohol or drug abuse patient.[facility] HospitalIn the event this information is protected by the Federal Confidentiality of Alcohol and Drug Abuse Patient Records regulations: The Federal rules restrict any use of the information to criminally investigate or prosecute any alcohol or drug abuse patient.[facility] HospitalIn the event this information is protected by the Federal Confidentiality of Alcohol and Drug Abuse Patient Records regulations: The Federal rules restrict any use of the information to criminally investigate or prosecute any alcohol or drug abuse patient.[facility] HospitalIn the event this information is protected by the Federal Confidentiality of Alcohol and Drug Abuse Patient Records regulations: The Federal rules restrict any use of the information to criminally investigate or prosecute any alcohol or drug abuse patient.[facility] HospitalIn the event this information is protected by the Federal Confidentiality of Alcohol and Drug Abuse Patient Records regulations: The Federal rules restrict any use of the information to criminally investigate or prosecute any alcohol or drug abuse patient.[facility] HospitalIn the event this information is protected by the Federal Confidentiality of Alcohol and Drug Abuse Patient Records regulations: The Federal rules restrict any use of the information to criminally investigate or prosecute any alcohol or drug abuse patient.[facility] HospitalIn the event this information is protected by the Federal Confidentiality of Alcohol and Drug Abuse Patient Records regulations: The Federal rules restrict any use of the information to criminally investigate or prosecute any alcohol or drug abuse patient.[facility] HospitalIn the event this information is protected by the Federal Confidentiality of Alcohol and Drug Abuse Patient Records regulations: The Federal rules restrict any use of the information to criminally investigate or prosecute any alcohol or drug abuse patient.[facility] HospitalIn the event this information is protected by the Federal Confidentiality of Alcohol and Drug Abuse Patient Records regulations: The Federal rules restrict any use of the information to criminally investigate or prosecute any alcohol or drug abuse patient.[facility] HospitalIn the event this information is protected by the Federal Confidentiality of Alcohol and Drug Abuse Patient Records regulations: The Federal rules restrict any use of the information to criminally investigate or prosecute any alcohol or drug abuse patient.[facility] HospitalIn the event this information is protected by the Federal Confidentiality of Alcohol and Drug Abuse Patient Records regulations: The Federal rules restrict any use of the information to criminally investigate or prosecute any alcohol or drug abuse patient.[facility] HospitalIn the event this information is protected by the Federal Confidentiality of Alcohol and Drug Abuse Patient Records regulations: The Federal rules restrict any use of the information to criminally investigate or prosecute any alcohol or drug abuse patient.[facility] HospitalIn the event this information is protected by the Federal Confidentiality of Alcohol and Drug Abuse Patient Records regulations: The Federal rules restrict any use of the information to criminally investigate or prosecute any alcohol or drug abuse patient.[facility] HospitalIn the event this information is protected by the Federal Confidentiality of Alcohol and Drug Abuse Patient Records regulations: The Federal rules restrict any use of the information to criminally investigate or prosecute any alcohol or drug abuse patient.[facility] HospitalIn the event this information is protected by the Federal Confidentiality of Alcohol and Drug Abuse Patient Records regulations: The Federal rules restrict any use of the information to criminally investigate or prosecute any alcohol or drug abuse patient.[facility] HospitalIn the event this information is protected by the Federal Confidentiality of Alcohol and Drug Abuse Patient Records regulations: The Federal rules restrict any use of the information to criminally investigate or prosecute any alcohol or drug abuse patient.[facility] HospitalIn the event this information is protected by the Federal Confidentiality of Alcohol and Drug Abuse Patient Records regulations: The Federal rules restrict any use of the information to criminally investigate or prosecute any alcohol or drug abuse patient.[facility] HospitalIn the event this information is protected by the Federal Confidentiality of Alcohol and Drug Abuse Patient Records regulations: The Federal rules restrict any use of the information to criminally investigate or prosecute any alcohol or drug abuse patient.[facility] HospitalIn the event this information is protected by the Federal Confidentiality of Alcohol and Drug Abuse Patient Records regulations: The Federal rules restrict any use of the information to criminally investigate or prosecute any alcohol or drug abuse patient.[facility] HospitalIn the event this information is protected by the Federal Confidentiality of Alcohol and Drug Abuse Patient Records regulations: The Federal rules restrict any use of the information to criminally investigate or prosecute any alcohol or drug abuse patient.[facility] HospitalIn the event this information is protected by the Federal Confidentiality of Alcohol and Drug Abuse Patient Records regulations: The Federal rules restrict any use of the information to criminally investigate or prosecute any alcohol or drug abuse patient.[facility] HospitalIn the event this information is protected by the Federal Confidentiality of Alcohol and Drug Abuse Patient Records regulations: The Federal rules restrict any use of the information to criminally investigate or prosecute any alcohol or drug abuse patient.[facility] HospitalIn the event this information is protected by the Federal Confidentiality of Alcohol and Drug Abuse Patient Records regulations: The Federal rules restrict any use of the information to criminally investigate or prosecute any alcohol or drug abuse patient.[facility] HospitalIn the event this information is protected by the Federal Confidentiality of Alcohol and Drug Abuse Patient Records regulations: The Federal rules restrict any use of the information to criminally investigate or prosecute any alcohol or drug abuse patient.[facility] HospitalIn the event this information is protected by the Federal Confidentiality of Alcohol and Drug Abuse Patient Records regulations: The Federal rules restrict any use of the information to criminally investigate or prosecute any alcohol or drug abuse patient.[facility] HospitalIn the event this information is protected by the Federal Confidentiality of Alcohol and Drug Abuse Patient Records regulations: The Federal rules restrict any use of the information to criminally investigate or prosecute any alcohol or drug abuse patient.[facility] HospitalIn the event this information is protected by the Federal Confidentiality of Alcohol and Drug Abuse Patient Records regulations: The Federal rules restrict any use of the information to criminally investigate or prosecute any alcohol or drug abuse patient.[facility] HospitalIn the event this information is protected by the Federal Confidentiality of Alcohol and Drug Abuse Patient Records regulations: The Federal rules restrict any use of the information to criminally investigate or prosecute any alcohol or drug abuse patient.[facility] HospitalIn the event this information is protected by the Federal Confidentiality of Alcohol and Drug Abuse Patient Records regulations: The Federal rules restrict any use of the information to criminally investigate or prosecute any alcohol or drug abuse patient.[facility] HospitalIn the event this information is protected by the Federal Confidentiality of Alcohol and Drug Abuse Patient Records regulations: The Federal rules restrict any use of the information to criminally investigate or prosecute any alcohol or drug abuse patient.[facility] HospitalIn the event this information is protected by the Federal Confidentiality of Alcohol and Drug Abuse Patient Records regulations: The Federal rules restrict any use of the information to criminally investigate or prosecute any alcohol or drug abuse patient.[facility] HospitalIn the event this information is protected by the Federal Confidentiality of Alcohol and Drug Abuse Patient Records regulations: The Federal rules restrict any use of the information to criminally investigate or prosecute any alcohol or drug abuse patient.[facility] HospitalIn the event this information is protected by the Federal Confidentiality of Alcohol and Drug Abuse Patient Records regulations: The Federal rules restrict any use of the information to criminally investigate or prosecute any alcohol or drug abuse patient.[facility] HospitalIn the event this information is protected by the Federal Confidentiality of Alcohol and Drug Abuse Patient Records regulations: The Federal rules restrict any use of the information to criminally investigate or prosecute any alcohol or drug abuse patient.[facility] HospitalIn the event this information is protected by the Federal Confidentiality of Alcohol and Drug Abuse Patient Records regulations: The Federal rules restrict any use of the information to criminally investigate or prosecute any alcohol or drug abuse patient.[facility] HospitalIn the event this information is protected by the Federal Confidentiality of Alcohol and Drug Abuse Patient Records regulations: The Federal rules restrict any use of the information to criminally investigate or prosecute any alcohol or drug abuse patient.[facility] HospitalIn the event this information is protected by the Federal Confidentiality of Alcohol and Drug Abuse Patient Records regulations: The Federal rules restrict any use of the information to criminally investigate or prosecute any alcohol or drug abuse patient.[facility] HospitalIn the event this information is protected by the Federal Confidentiality of Alcohol and Drug Abuse Patient Records regulations: The Federal rules restrict any use of the information to criminally investigate or prosecute any alcohol or drug abuse patient.[facility] HospitalIn the event this information is protected by the Federal Confidentiality of Alcohol and Drug Abuse Patient Records regulations: The Federal rules restrict any use of the information to criminally investigate or prosecute any alcohol or drug abuse patient.[facility] HospitalIn the event this information is protected by the Federal Confidentiality of Alcohol and Drug Abuse Patient Records regulations: The Federal rules restrict any use of the information to criminally investigate or prosecute any alcohol or drug abuse patient.[facility] HospitalIn the event this information is protected by the Federal Confidentiality of Alcohol and Drug Abuse Patient Records regulations: The Federal rules restrict any use of the information to criminally investigate or prosecute any alcohol or drug abuse patient.[facility] HospitalIn the event this information is protected by the Federal Confidentiality of Alcohol and Drug Abuse Patient Records regulations: The Federal rules restrict any use of the information to criminally investigate or prosecute any alcohol or drug abuse patient.[facility] HospitalIn the event this information is protected by the Federal Confidentiality of Alcohol and Drug Abuse Patient Records regulations: The Federal rules restrict any use of the information to criminally investigate or prosecute any alcohol or drug abuse patient.[facility] HospitalIn the event this information is protected by the Federal Confidentiality of Alcohol and Drug Abuse Patient Records regulations: The Federal rules restrict any use of the information to criminally investigate or prosecute any alcohol or drug abuse patient.[facility] HospitalIn the event this information is protected by the Federal Confidentiality of Alcohol and Drug Abuse Patient Records regulations: The Federal rules restrict any use of the information to criminally investigate or prosecute any alcohol or drug abuse patient.[facility] HospitalIn the event this information is protected by the Federal Confidentiality of Alcohol and Drug Abuse Patient Records regulations: The Federal rules restrict any use of the information to criminally investigate or prosecute any alcohol or drug abuse patient.[facility] HospitalIn the event this information is protected by the Federal Confidentiality of Alcohol and Drug Abuse Patient Records regulations: The Federal rules restrict any use of the information to criminally investigate or prosecute any alcohol or drug abuse patient.[facility] HospitalIn the event this information is protected by the Federal Confidentiality of Alcohol and Drug Abuse Patient Records regulations: The Federal rules restrict any use of the information to criminally investigate or prosecute any alcohol or drug abuse patient.[facility] HospitalIn the event this information is protected by the Federal Confidentiality of Alcohol and Drug Abuse Patient Records regulations: The Federal rules restrict any use of the information to criminally investigate or prosecute any alcohol or drug abuse patient.[facility] Reason for Visit (unrecogniz ed section and [...] gravis (HCC) Procedures CONSULT TO NEUROLOGY OFFICE/OUTPATIENT [facility] 60-74 MINUTES Sarina Adams MD [address] [place] [address] Referral ID Status Reason Start Date Expiration Date V isits Requested Visits Authorized [id number] Closed PCP Requested Referral 05/26/2022 05/26/2023 1 1 Reason Onset Date Comments Refill Request 07/10/[address] Specialty Diagnoses / Procedures Referred By Contac t Referred To Contact CT IMAGING Diagnoses Malignant neoplasm of thymus (HCC) Procedures CT CHEST WO IVCON DIAGNOSTIC COMPUTED TOMOGRAPHY THORAX W/O CNTRST Monty Douglas MD [address] [place] [address] Ct Imaging Referral ID Status Reason Start Date Expiration Date V isits Requested Visits Authorized [id number] Closed Auto-Generate d Referral 07/08/2022 09/06/2022 1 [...] (HCC) Procedures CONSULT TO UROLOGY OFFICE/OUTPATIENT [facility] 60-74 MINUTES Denise Alvarado APRN.FELLING MACHINE OPERATOR [address] [place] [address] Referral ID Status Reason Start Date Expiration Date V isits Requested Visits Authorized [id number] Closed PCP Requested Referral 08/24/2022 08/24/2023 1 1 Reason Comments Recheck 3 month follow up Reason Comments Nocturnal oximetry Reason Comments Follow Up Follow up Diabetes Specialty Diagnoses / Procedures Referred By Contac t Referred To Contact Endocrinology Diagnoses Hypothyroidism (acquired) Procedures CONSULT TO ENDOCRINOLOGY OFFICE/OUTPATIENT [facility] 60-74 MINUTES Radha Warner MD [address] [place] [address] Referral ID Status Reason Start Date Expiration Date V isits Requested Visits Authorized [id number] Closed PCP Requested Referral 06/02/2022 06/02/2023 1 [...] in lo wer legs Reason Comments Results Blind Lacer - Other Reason Comments Patient Question Reason [...] MULTIPLE Brooke Henry PA-C [address] [place] [address] [address] Referral ID Status Reason Start Date Expiration Date V isits Requested Visits Authorized [id number] Closed Auto-Generate d Referral 01/26/2023 10/03/2023 1 [...] Procedures Referred By Contac t Referred To [facility] Diagnoses Post-COVID chronic dyspnea Procedures OXIMETRY WITH AMBULATION NONINVASIVE EAR/PULSE OXIMETRY MULTIPLE Brooke Henry PA-C [address] [place] [address] [address] Referral ID Status Reason Start Date Expiration Date V isits Requested Visits Authorized [id number] Closed Auto-Generate d Referral 12/01/2023 12/30/2024 1 1 Specialty Diagnoses / Procedures Referred By Contac t Referred To Contact [facility] Diagnoses Post-COVID chronic dyspnea Procedures LUNG DIFFUSION CAPACITY (DLCO) DIFFUSING CAPACITY Brooke Be PA-C [address] [place] [address] [address] Referral ID Status Reason Start Date Expiration Date V isits Requested Visits Authorized [id number] Closed Auto-Generate d Referral 12/01/2023 12/30/2024 1 1 Specialty Diagnoses / Procedures Referred By Contac t Referred To Contact [facility] Diagnoses Post-COVID chronic dyspnea Procedures SPIROMETRY WITH DILATOR IF OBSTRUCTED BRNCDILAT RSPSE SPMTRY PRE&POST-BRNCDILAT ADMN Brooke Be PA-C [address] [place] [address] [place] [address] Referral ID Status Reason Start Date Expiration Date V isits Requested Visits Authorized [id number] Closed Auto-Generate d Referral 12/01/2023 12/30/2024 1 [...] DOSE LNG CA SCR Alysha- Kay Paredes, DISPATCH SUPERVISOR.MANAGER APPOINTMENT [address] [place] [address] Ct Imaging [facility] Referral ID Status Reason Start Date Expiration Date V isits Requested Visits Authorized [id number] Closed Auto-Generate d Referral 02/02/2024 03/20/2024 1 [...] to follow Home Health PT/OT Reason Comments [facility], verbal order requesting delay of care Reason Comments Physical Therapy Plan of Care Reason Onset Date Comments Refill Request 05/12/2024 Specialty Diagnoses / Procedures Referred By Contac t Referred To Contact [facility] Diagnoses Chronic hypoxemic respiratory failure (HCC) Post-COVID chronic dyspnea Procedures OXIMETRY WITH AMBULATION NONINVASIVE EAR/PULSE OXIMETRY MULTIPLE Brooke Henry PAJenniferC [address] [place] [address] Respiratory [place] [address] [place] [address] Referral ID Status Reason Start Date Expiration Date V isits Requested Visits Authorized [id number] Closed Auto-Generate d Referral 05/19/2023 06/17/2024 1 [...] fall Reason Comments Results Appointment Reason Comments [facility] OT update POC Reason Comments Rx refill; not on current med list Reason Comments New Pain Referred by Cole Bower Specialty Diagnoses / Procedures Referred By Contac t Referred To Contact Orthopedics Diagnoses Injury of left rotator cuff, subsequent encounter Procedures CONSULT TO ORTHOPAEDICS OFFICE/OUTPATIENT NEW HIGH MDM 60 MINUTES Cole Bower APRN.MANAGER APPOINTMENT [address] [place] [address] Referral ID Status Reason Start Date Expiration Date V isits Requested Visits Authorized [id number] Closed PCP Requested Referral 05/16/2024 05/16/2025 1 [...] Comments swelling/future apt Reason Comments ER F/U [facility] October 2024 Reason Comments Established Patient Post [...] CAPACITY Brooke Be PA-C [address] [place] [address] Phone: tel: fax: Respiratory [address] [address] Referral ID Status Reason Start Date Expiration Date V isits Requested Visits Authorized [id number] Closed Auto-Generate d Referral 12/06/2024 01/05/2026 1 1 Specialty Diagnoses / Procedures Referred By Contac t Referred To Contact [facility] Diagnoses Post-COVID chronic dyspnea Former smoker Procedures LUNG VOLUMES Brooke Be PA-C [address] [place] [address] Phone: tel: fax: Respiratory [address] [address] Referral ID Status Reason Start Date Expiration Date V isits Requested Visits Authorized [id number] Closed Auto-Generate d Referral 12/07/2024 10/03/2025 1 1 Specialty Diagnoses / Procedures Referred By Contac t Referred To Contact [facility] Diagnoses Post-COVID chronic dyspnea Former smoker Procedures SPIROMETRY WITH DILATOR IF OBSTRUCTED BRNCDILAT RSPSE SPMTRY PRE&POST-BRNCDILAT ADMN [place] Brooke M, PA-C [address] [place] [address] Phone: tel: fax: Respiratory [place] [address] [place] [address] Referral ID Status Reason Start Date Expiration Date V isits Requested Visits Authorized [id number] Closed Auto-Generate d Referral 12/06/2024 01/05/2026 1 1 Reason Onset Date Comments Refill Request 01/07/2025 Reason Onset Date Comments Refill Request 01/07/2025 Reason Onset Date Comments Refill Request 01/19/2025 Reason Onset Date Comments Refill Request 02/05/2025 Reason Onset Date Comments Refill Request 02/08/2025 Reason Comments Medication Problem [facility] closing nee d all sent to [facility] Diabetes Reason Onset Date Comments Refill Request [...] Care Teams (unrecognized sec tion and content) Vp Medical Relationship Specialty Start Date End Date Sarina Adams MD [address] [place], [place] [id number] PCP - General Internal Medicine 06/18/15 Beata Mendoza RPh [address] [place], [place] [address] Pharmacist Pharmacy 07/11/19 Vp Medical Relationship Specialty Start Date End Date Sarina Adams MD [address] [place] [address] PCP - General Internal Medicine 06/18/15 Beata Mendoza, [facility] [address] [place] [address] Pharmacist Pharmacy 07/11/19 Vp Medical Relationship Specialty Start Date End Date Sarina Adams MD [address] [place] [address] PCP - General Internal Medicine 06/18/15 Beata Mendoza, [facility] [address] [place] [address] Pharmacist Pharmacy 07/11/19 Vp Medical Relationship Specialty Start Date End Date Sarina Adams MD [address] [place] [address] PCP - General Internal Medicine 06/18/15 Beata Mendoza, [facility] [address] [place] [address] Pharmacist Pharmacy 07/11/19 Vp Medical Relationship Specialty Start Date End Date Sarina Adams MD [address] [place] [address] PCP - General Internal Medicine 06/18/15 Beata Mendoza, [facility] [address] [place] [address] Pharmacist Pharmacy 07/11/19 Vp Medical Relationship Specialty Start Date End Date Sarina Adams MD [address] [place] [address] PCP - General Internal Medicine 06/18/15 Beata Mendoza, [facility] [address] [place] [address] Pharmacist Pharmacy 07/11/19 Vp Medical Relationship Specialty Start Date End Date Sarina Adams MD [address] [facility] [place] [address] PCP - General Internal Medicine 06/18/15 Beata Mendoza, [facility] [address] [facility] [place] [address] Pharmacist Pharmacy 07/11/19 Vp Medical Relationship Specialty Start Date End Date Sarina Adams MD [address] [facility] [place] [address] PCP - General Internal Medicine 06/18/15 Beata Mendoza, [facility] [address] [facility] [place] [address] Pharmacist Pharmacy 07/11/19 Vp Medical Relationship Specialty Start Date End Date Sarina Adams MD [address] [facility] [place] [address] PCP - General Internal Medicine 06/18/15 Beata Mendoza, [facility] [address] [facility] [place] [address] Pharmacist Pharmacy 07/11/19 Vp Medical Relationship Specialty Start Date End Date Sarina Adams MD [address] [facility] [place] [address] PCP - General Internal Medicine 06/18/15 Beata Mendoza, [facility] [address] [facility] [place] [address] Pharmacist Pharmacy 07/11/19 Vp Medical Relationship Specialty Start Date End Date Sarina Adams MD [address] [facility] [place] [address] PCP - General Internal Medicine 06/18/15 [facility] [address] [place] [address] Pharmacist Pharmacy 07/11/19 Vp Medical Relationship Specialty Start Date End Date Sarina Adams MD [address] [place] [address] PCP - General Internal Medicine 06/18/15 [facility] [address] [place] [address] Pharmacist Pharmacy 07/11/19 Vp Medical Relationship Specialty Start Date End Date Sarina Adams MD [address] [place] [address] PCP - General Internal Medicine 06/18/15 [facility] [address] [place] [address] Pharmacist Pharmacy 07/11/19 Vp Medical Relationship Specialty Start Date End Date Sarina Adams MD [address] [place] [address] PCP - General Internal Medicine 06/18/15 [facility] [address] [place] [address] Pharmacist Pharmacy 07/11/19 Vp Medical Relationship Specialty Start Date End Date Sarina Adams MD [address] [place] [address] PCP - General Internal Medicine 06/18/15 [facility] [address] [place] [address] Pharmacist Pharmacy 07/11/19 Vp Medical Relationship Specialty Start Date End Date Sarina Adams MD [address] [place] [address] PCP - General Internal Medicine 06/18/15 Beata Mendoza, [facility] [address] [facility] [place] [address] Pharmacist Pharmacy 07/11/19 Vp Medical Relationship Specialty Start Date End Date Sarina Adams MD [address] [place] [address] PCP - General Internal Medicine 06/18/15 Beata Mendoza, [facility] [address] [facility] [place] [address] Pharmacist Pharmacy 07/11/19 Vp Medical Relationship Specialty Start Date End Date Sarina Adams MD [address] [place] [address] PCP - General Internal Medicine 06/18/15 Beata Mendoza, [facility] [address] [place] [address] Pharmacist Pharmacy 07/11/19 Vp Medical Relationship Specialty Start Date End Date Sarina Adams MD [address] [place] [address] PCP - General Internal Medicine 06/18/15 Evangelistaminh Beata, [facility] [address] [place] [address] Pharmacist Pharmacy 07/11/19 Vp Medical Relationship Specialty Start Date End Date Sarina Adams MD [address] [place] [address] PCP - General Internal Medicine 06/18/15 Beata Mendoza, [facility] [address] [facility] [place] [address] Pharmacist Pharmacy 07/11/19 Vp Medical Relationship Specialty Start Date End Date Sarina Adams MD [address] [place] [address] PCP - General Internal Medicine 06/18/15 Beata Mendoza, [facility] [address] [place] [address] Pharmacist Pharmacy 07/11/19 Vp Medical Relationship Specialty Start Date End Date Sarina Adams MD [address] [place] [address] PCP - General Internal Medicine 06/18/15 Beata Mendoza, [facility] [address] [place] [address] Pharmacist Pharmacy 07/11/19 Vp Medical Relationship Specialty Start Date End Date Sarina Adams MD [address] [place] [address] PCP - General Internal Medicine 06/18/15 Beata Mendoza, [facility] [address] [place] [address] Pharmacist Pharmacy 07/11/19 Vp Medical Relationship Specialty Start Date End Date Sarina Adams MD [address] [place] [address] PCP - General Internal Medicine 06/18/15 Beata Mendoza, [facility] [address] [place] [address] Pharmacist Pharmacy 07/11/19 Vp Medical Relationship Specialty Start Date End Date Sarina Adams MD [address] [place] [address] PCP - General Internal Medicine 06/18/15 Beata Mendoza, [facility] [address] [place] [address] Pharmacist Pharmacy 07/11/19 Vp Medical Relationship Specialty Start Date End Date Sarina Adams MD [address] [place] [address] PCP - General Internal Medicine 06/18/15 Beata Mendoza, [facility] [address] [place] [address] Pharmacist Pharmacy 07/11/19 Vp Medical Relationship Specialty Start Date End Date Sarina Adams MD [address] [place] [address] PCP - General Internal Medicine 06/18/15 Beata Mendoza, [facility] [address] [place] [address] Pharmacist Pharmacy 07/11/19 Vp Medical Relationship Specialty Start Date End Date Sarina Adams MD [address] [place] [address] PCP - General Internal Medicine 06/18/15 Beata Mendoza, [facility] [address] [place] [address] Pharmacist Pharmacy 07/11/19 Vp Medical Relationship Specialty Start Date End Date Sarina Adams MD [address] [place] [address] PCP - General Internal Medicine 06/18/15 Beata Mendoza, [facility] [address] [place] [address] Pharmacist Pharmacy 07/11/19 Vp Medical Relationship Specialty Start Date End Date Sarina Adams MD [address] [place] [address] PCP - General Internal Medicine 06/18/15 Beata Mendoza, [facility] [address] [place] [address] Pharmacist Pharmacy 07/11/19 Vp Medical Relationship Specialty Start Date End Date Sarina Adams MD [address] [facility] [place] [address] PCP - General Internal Medicine 06/18/15 Beata Mendoza, [facility] [address] [facility] [place] [address] Pharmacist Pharmacy 07/11/19 Vp Medical Relationship Specialty Start Date End Date Sarina Adams MD [address] [facility] [place] [address] PCP - General Internal Medicine 06/18/15 Beata Mendoza, [facility] [address] [facility] [place] [address] Pharmacist Pharmacy 07/11/19 Vp Medical Relationship Specialty Start Date End Date Sarina Adams MD [address] [facility] [place] [address] PCP - General Internal Medicine 06/18/15 Beata Mendoza, [facility] [address] [facility] [place] [address] Pharmacist Pharmacy 07/11/19 Vp Medical Relationship Specialty Start Date End Date Sarina Adams MD [address] [facility] [place] [address] PCP - General Internal Medicine 06/18/15 Beata Mendoza, [facility] [address] [facility] [place] [address] Pharmacist Pharmacy 07/11/19 Vp Medical Relationship Specialty Start Date End Date Sarina Adams MD [address] [facility] [place] [address] PCP - General Internal Medicine 06/18/15 Beata Mendoza, [facility] [address] [place] [address] Pharmacist Pharmacy 07/11/19 Vp Medical Relationship Specialty Start Date End Date Sarina Adams MD [address] [place] [address] PCP - General Internal Medicine 06/18/15 Beata Mendoza, [facility] [address] [place] [address] Pharmacist Pharmacy 07/11/19 Vp Medical Relationship Specialty Start Date End Date Sarina Adams MD [address] [place] [address] PCP - General Internal Medicine 06/18/15 Beata Mendoza, [facility] [address] [place] [address] Pharmacist Pharmacy 07/11/19 Vp Medical Relationship Specialty Start Date End Date Sarina Adams MD [address] [place] [address] PCP - General Internal Medicine 06/18/15 Beata Mendoza, [facility] [address] [place] [address] Pharmacist Pharmacy 07/11/19 Vp Medical Relationship Specialty Start Date End Date Sarina Adams MD [address] [place] [address] PCP - General Internal Medicine 06/18/15 Beata Mendoza, [facility] [address] [place] [address] Pharmacist Pharmacy 07/11/19 Vp Medical Relationship Specialty Start Date End Date Sarina Adams MD [address] [place] [address] PCP - General Internal Medicine 06/18/15 [facility] [address] [place] [address] Pharmacist Pharmacy 07/11/19 Vp Medical Relationship Specialty Start Date End Date Sarina Adams MD [address] [place] [address] PCP - General Internal Medicine 06/18/15 [facility] [address] [place] [address] Pharmacist Pharmacy 07/11/19 Vp Medical Relationship Specialty Start Date End Date Sarina Adams MD [address] [place] [address] PCP - General Internal Medicine 06/18/15 [facility] [address] [place] [address] Pharmacist Pharmacy 07/11/19 Vp Medical Relationship Specialty Start Date End Date Sarina Adams MD [address] [place] [address] PCP - General Internal Medicine 06/18/15 [facility], [facility] [address] [place] [address] Pharmacist Pharmacy 07/11/19 Team Status: Active Member [...] Dr. Tavo Son DO Emergency Provider Active Vp Medical Relationship Specialty Start Date End Date Sarina Adams MD [address] [place] [address] PCP - General Internal Medicine 06/18/15 Evangel[facility], [facility] [address] [facility] [place] [address] Pharmacist Pharmacy 07/11/19 Vp Medical Relationship Specialty Start Date End Date Sarina Adams MD [address] [facility] [place] [address] PCP - General Internal Medicine 06/18/15 [facility] [address] [facility] [place] [address] Pharmacist Pharmacy 07/11/19 Vp Medical Relationship Specialty Start Date End Date Sarina Adams MD [address] [facility] [place] [address] PCP - General Internal Medicine 06/18/15 EvangelistaBeata, [facility] [address] [facility] [place] [address] Pharmacist Pharmacy 07/11/19 Vp Medical Relationship Specialty Start Date End Date Sarina Adams MD [address] [facility] [place] [address] PCP - General Internal Medicine 06/18/15 [facility] [address] [facility] [place] [address] Pharmacist Pharmacy 07/11/19 Vp Medical Relationship Specialty Start Date End Date Sarina Adams MD [address] [facility] [place] [address] PCP - General Internal Medicine 06/18/15 EvangelistaBeata, [facility] [address] [place] [address] Pharmacist Pharmacy 07/11/19 Vp Medical Relationship Specialty Start Date End Date Sarina Adams MD [address] [facility] [place] [address] PCP - General Internal Medicine 06/18/15 Beata Mendoza, [facility] [address] [facility] [place] [address] Pharmacist Pharmacy 07/11/19 Vp Medical Relationship Specialty Start Date End Date Sarina Adams MD [address] [facility] [place] [address] PCP - General Internal Medicine 06/18/15 Beata Mendoza, [facility] [address] [facility] [place] [address] Pharmacist Pharmacy 07/11/19 Vp Medical Relationship Specialty Start Date End Date Sarina Adams MD [address] [facility] [place] [address] PCP - General Internal Medicine 06/18/15 Beata Mendoza, [facility] [address] [facility] [place] [address] Pharmacist Pharmacy 07/11/19 Vp Medical Relationship Specialty Start Date End Date Sarina Adams MD [address] [facility] [place] [address] PCP - General Internal Medicine 06/18/15 Beata Mendoza, [facility] [address] [facility] [place] [address] Pharmacist Pharmacy 07/11/19 Vp Medical Relationship Specialty Start Date End Date Sarina Adams MD [address] [facility] [place] [address] PCP - General Internal Medicine 06/18/15 Beata Mendoza, [facility] [address] [facility] [place] [address] Pharmacist Pharmacy 07/11/19 Vp Medical Relationship Specialty Start Date End Date Sarina Adams MD [address] [facility] [place] [address] PCP - General Internal Medicine 06/18/15 Beata Mendoza, [facility] [address] [facility] [place] [address] Pharmacist Pharmacy 07/11/19 Vp Medical Relationship Specialty Start Date End Date Sarina Adams MD [address] [facility] [place] [address] PCP - General Internal Medicine 06/18/15 Beata Mendoza, [facility] [address] [facility] [place] [address] Pharmacist Pharmacy 07/11/19 Vp Medical Relationship Specialty Start Date End Date Sarina Adams MD [address] [facility] [place] [address] PCP - General Internal Medicine 06/18/15 Beata Mendoza, [facility] [address] [facility] [place] [address] Pharmacist Pharmacy 07/11/19 Vp Medical Relationship Specialty Start Date End Date Sarina Adams MD [address] [facility] [place] [address] PCP - General Internal Medicine 06/18/15 [facility] [address] [place] [address] Pharmacist Pharmacy 07/11/19 Vp Medical Relationship Specialty Start Date End Date Sarina Adams MD [address] [place] [address] PCP - General Internal Medicine 06/18/15 Vp Medical Relationship Specialty Start Date End Date Sarina Adams MD [address] [place] [address] PCP - General Internal Medicine 06/18/15 Vp Medical Relationship Specialty Start Date End Date Sarina Aadms MD [address] [place] [address] PCP - General Internal Medicine 06/18/15 Vp Medical Relationship Specialty Start Date End Date Sarina Adams MD [address] [place] [address] PCP - General Internal Medicine 06/18/15 Vp Medical Relationship Specialty Start Date End Date Sarina Adams MD [address] [place] [address] PCP - General Internal Medicine 06/18/15 Vp Medical Relationship Specialty Start Date End Date Sarina Adams MD [address] [place] [address] PCP - General Internal Medicine 06/18/15 Vp Medical Relationship Specialty Start Date End Date Sarina Adams MD [address] [place] [address] PCP - General Internal Medicine 06/18/15 Vp Medical Relationship Specialty Start Date End Date Sarina Adams MD [address] [place] [address] PCP - General Internal Medicine 06/18/15 Vp Medical Relationship Specialty Start Date End Date Sarina Adams MD [address] [place] [address] PCP - General Internal Medicine 06/18/15 Vp Medical Relationship Specialty Start Date End Date Sarina Adams MD [address] [place] [address] PCP - General Internal Medicine 06/18/15 Vp Medical Relationship Specialty Start Date End Date Sarina Adams MD [address] [place] [address] PCP - General Internal Medicine 06/18/15 Vp Medical Relationship Specialty Start Date End Date Sarina Adams MD [address] [place] [address] PCP - General Internal Medicine 06/18/15 Vp Medical Relationship Specialty Start Date End Date Sarina Adams MD [address] [place] [address] PCP - General Internal Medicine 06/18/15 Beata Mendoza [facility] [address] [place] [address] Pharmacist Pharmacy 07/11/19 05/27/23 Team Status: Inactive Member Role Status Dates Dr. Sarina Adams MD Primary Care Provider Active Dr. Vikram Hicks MD Emergency Provider Active Vp Medical Relationship Specialty Start Date End Date Sarina Adams MD [address] [place] [address] PCP - General Internal Medicine 06/18/15 Vp Medical Relationship Specialty Start Date End Date Sarina Adams MD [address] [place] [address] PCP - General Internal Medicine 06/18/15 Vp Medical Relationship Specialty Start Date End Date Sarina Adams MD [address] [place] [address] PCP - General Internal Medicine 06/18/15 Vp Medical Relationship Specialty Start Date End Date Sarina Adams MD [address] [place] [address] PCP - General Internal Medicine 06/18/15 Vp Medical Relationship Specialty Start Date End Date Sarina Adams MD [address] [place] [address] PCP - General Internal Medicine 06/18/15 Vp Medical Relationship Specialty Start Date End Date Sarina Adams MD [address] [place] [address] PCP - General Internal Medicine 06/18/15 Vp Medical Relationship Specialty Start Date End Date Sarina Adams MD [address] [place] [address] PCP - General Internal Medicine 06/18/15 Vp Medical Relationship Specialty Start Date End Date Sarina Admas MD [address] [place] [address] PCP - General Internal Medicine 06/18/15 Vp Medical Relationship Specialty Start Date End Date Sarina Adams MD [address] [place] [address] PCP - General Internal Medicine 06/18/15 Vp Medical Relationship Specialty Start Date End Date Sarina Adams MD [address] [place] [address] PCP - General Internal Medicine 06/18/15 Vp Medical Relationship Specialty Start Date End Date Sarina Adams MD [address] [place] [address] PCP - General Internal Medicine 06/18/15 Vp Medical Relationship Specialty Start Date End Date Sarina Adams MD [address] [place] [address] PCP - General Internal Medicine 06/18/15 Vp Medical Relationship Specialty Start Date End Date Sarina Adams MD [address] [place] [address] PCP - General Internal Medicine 06/18/15 Vp Medical Relationship Specialty Start Date End Date Sarina Adams MD [address] [place] [address] PCP - General Internal Medicine 06/18/15 Vp Medical Relationship Specialty Start Date End Date Sarina Adams MD [address] [place] [address] PCP - General Internal Medicine 06/18/15 Vp Medical Relationship Specialty Start Date End Date Sarina Adams MD [address] [place] [address] PCP - General Internal Medicine 06/18/15 Vp Medical Relationship Specialty Start Date End Date Sarina Adams MD [address] [place] [address] PCP - General Internal Medicine 06/18/15 Vp Medical Relationship Specialty Start Date End Date Sarina Adams MD [address] [place] [address] PCP - General Internal Medicine 06/18/15 Vp Medical Relationship Specialty Start Date End Date Sarina Adams MD [address] [place] [address] PCP - General Internal Medicine 06/18/15 Vp Medical Relationship Specialty Start Date End Date Sarina Adams MD [address] [place] [address] PCP - General Internal Medicine 06/18/15 Vp Medical Relationship Specialty Start Date End Date Sarina Adams MD [address] [place] [address] PCP - General Internal Medicine 06/18/15 [facility] [address] [facility] [place] [address] Pharmacist Pharmacy 02/24/24 Vp Medical Relationship Specialty Start Date End Date Sarina Adams MD [address] [place] [address] PCP - General Internal Medicine 06/18/15 Carmina Sylvester [facility] [address] [facility] [place] [address] Pharmacist Pharmacy 02/24/24 Vp Medical Relationship Specialty Start Date End Date Sarina Adams MD [address] [facility] [place] [address] PCP - General Internal Medicine 06/18/15 [facility] [address] [facility] [place] [address] Pharmacist Pharmacy 02/24/24 Vp Medical Relationship Specialty Start Date End Date Sarina Adams MD [address] [place] [address] PCP - General Internal Medicine 06/18/15 [facility] [address] [facility] [place] [address] Pharmacist Pharmacy 02/24/24 Vp Medical Relationship Specialty Start Date End Date Sarina Adams MD [address] [facility] [place] [address] PCP - General Internal Medicine 06/18/15 [facility] [address] [facility] [place] [address] Pharmacist Pharmacy 02/24/24 Vp Medical Relationship Specialty Start Date End Date Sarina Adams MD [address] [facility] [place] [address] PCP - General Internal Medicine 06/18/15 [facility] [address] [facility] [place] [address] Pharmacist Pharmacy 02/24/24 Vp Medical Relationship Specialty Start Date End Date Sarina Adams MD [address] [place] [address] PCP - General Internal Medicine 06/18/15 [facility] [address] [place] [address] Pharmacist Pharmacy 02/24/24 Vp Medical Relationship Specialty Start Date End Date Sarina Adams MD [address] [facility] [place] [address] PCP - General Internal Medicine 06/18/15 [facility] [address] [place] [address] Pharmacist Pharmacy 02/24/24 Vp Medical Relationship Specialty Start Date End Date Sarina Adams MD [address] [facility] [place] [address] PCP - General Internal Medicine 06/18/15 [facility] [address] [place] [address] Pharmacist Pharmacy 02/24/24 Vp Medical Relationship Specialty Start Date End Date Sarina Adams MD [address] [facility] [place] [address] PCP - General Internal Medicine 06/18/15 [facility] [address] [facility] [place] [address] Pharmacist Pharmacy 02/24/24 Vp Medical Relationship Specialty Start Date End Date Sarina Adams MD [address] [facility] [place] [address] PCP - General Internal Medicine 06/18/15 Carmina Sylvester, [facility] [address] [place] [address] Pharmacist Pharmacy 02/24/24 Vp Medical Relationship Specialty Start Date End Date Sarina Adams MD [address] [place] [address] PCP - General Internal Medicine 06/18/15 Carmina Sylvester, [facility] [address] [place] [address] Pharmacist Pharmacy 02/24/24 Vp Medical Relationship Specialty Start Date End Date Sarina Adams MD [address] [facility] [place] [address] PCP - General Internal Medicine 06/18/15 Carmina Sylvester, [facility] [address] [place] [address] Pharmacist Pharmacy 02/24/24 Vp Medical Relationship Specialty Start Date End Date Sarina Adams MD [address] [facility] [place] [address] PCP - General Internal Medicine 06/18/15 Carmina Sylvester, [facility] [address] [place] [address] Pharmacist Pharmacy 02/24/24 Vp Medical Relationship Specialty Start Date End Date Sarina Adams MD [address] [place] [address] PCP - General Internal Medicine 06/18/15 [facility] [address] [place] [address] Pharmacist Pharmacy 02/24/24 Vp Medical Relationship Specialty Start Date End Date Sarina Adams MD [address] [facility] [place] [address] PCP - General Internal Medicine 06/18/15 [facility] [address] [facility] [place] [address] Pharmacist Pharmacy 02/24/24 Vp Medical Relationship Specialty Start Date End Date Sarina Adams MD [address] [facility] [place] [address] PCP - General Internal Medicine 06/18/15 [facility] [address] [place] [address] Pharmacist Pharmacy 02/24/24 Vp Medical Relationship Specialty Start Date End Date Sarina Adams MD [address] [facility] [place] [address] PCP - General Internal Medicine 06/18/15 [facility] [address] [place] [address] Pharmacist Pharmacy 02/24/24 Vp Medical Relationship Specialty Start Date End Date Sarina Adams MD [address] [facility] [place] [address] PCP - General Internal Medicine 06/18/15 [facility] [address] [place] [address] Pharmacist Pharmacy 02/24/24 Vp Medical Relationship Specialty Start Date End Date Sarina Adams MD [address] [place] [address] PCP - General Internal Medicine 06/18/15 [facility] [address] [place] [address] Pharmacist Pharmacy 02/24/24 Vp Medical Relationship Specialty Start Date End Date Sarina Adams MD [address] [place] [address] PCP - General Internal Medicine 06/18/15 [facility] [address] [place] [address] Pharmacist Pharmacy 02/24/24 Vp Medical Relationship Specialty Start Date End Date Sarina Adams MD [address] [place] [address] PCP - General Internal Medicine 06/18/15 [facility] [address] [place] [address] Pharmacist Pharmacy 02/24/24 Vp Medical Relationship Specialty Start Date End Date Sarina Adams MD [address] [place] [address] PCP - General Internal Medicine 06/18/15 [facility] [address] [place] [address] Pharmacist Pharmacy 02/24/24 Vp Medical Relationship Specialty Start Date End Date Sarina Adams MD [address] [place] [address] PCP - General Internal Medicine 06/18/15 Carmina Sylvester, [facility] [address] [facility] [place] [address] Pharmacist Pharmacy 02/24/24 Vp Medical Relationship Specialty Start Date End Date Sarina Adams MD [address] [facility] [place] [address] PCP - General Internal Medicine 06/18/15 Carmina Sylvester, [facility] [address] [place] [address] Pharmacist Pharmacy 02/24/24 Vp Medical Relationship Specialty Start Date End Date Sarina Adams MD [address] [facility] [place] [address] PCP - General Internal Medicine 06/18/15 Carmina Sylvester, [facility] [address] [facility] [place] [address] Pharmacist Pharmacy 02/24/24 Vp Medical Relationship Specialty Start Date End Date Sarina Adams MD [address] [facility] [place] [address] PCP - General Internal Medicine 06/18/15 Carmina Sylvester, [facility] [address] [place] [address] Pharmacist Pharmacy 02/24/24 Vp Medical Relationship Specialty Start Date End Date Sarina Adams MD [address] [facility] [place] [address] PCP - General Internal Medicine 06/18/15 Vp Medical Relationship Specialty Start Date End Date Sarina Adams MD [address] [facility] [place] [address] PCP - General Internal Medicine 06/18/15 [facility] [address] [facility] [place] [address] Pharmacist Pharmacy 02/24/24 Vp Medical Relationship Specialty Start Date End Date Sarina Adams MD [address] [place] [address] PCP - General Internal Medicine 06/18/15 [facility] [address] [place] [address] Pharmacist Pharmacy 02/24/24 Vp Medical Relationship Specialty Start Date End Date Sarina Adams MD [address] [place] [address] PCP - General Internal Medicine 06/18/15 [facility] [address] [facility] [place] [address] Pharmacist Pharmacy 02/24/24 Vp Medical Relationship Specialty Start Date End Date Sarina Adams MD [address] [place] [address] PCP - General Internal Medicine 06/18/15 [facility] [address] [place] [address] Pharmacist Pharmacy 07/11/19 05/27/23 Vp Medical Relationship Specialty Start Date End Date Sarina Adams MD [address] [place] [address] PCP - General Internal Medicine 06/18/15 Carmina Sylvester, [facility] [address] [place] [address] Pharmacist Pharmacy 02/24/24 Vp Medical Relationship Specialty Start Date End Date Sarina Adams MD [address] [facility] [place] [address] PCP - General Internal Medicine 06/18/15 Carmina Sylvester, [facility] [address] [place] [address] Pharmacist Pharmacy 02/24/24 Vp Medical Relationship Specialty Start Date End Date Sarina Adams MD [address] [facility] [place] [address] PCP - General Internal Medicine 06/18/15 [facility] [address] [place] [address] Pharmacist Pharmacy 02/24/24 Vp Medical Relationship Specialty Start Date End Date Sarina Adams MD [address] [facility] [place] [address] PCP - General Internal Medicine 06/18/15 Carmina Sylvester, [facility] [address] [place] [address] Pharmacist Pharmacy 02/24/24 Vp Medical Relationship Specialty Start Date End Date Sarina Adams MD [address] [facility] [place] [address] PCP - General Internal Medicine 06/18/15 Carmina Sylvester, [facility] [address] [facility] [place] [address] Pharmacist Pharmacy 02/24/24 Vp Medical Relationship Specialty Start Date End Date Sarina Adams MD [address] [facility] [place] [address] PCP - General Internal Medicine 06/18/15 [facility] [address] [facility] [place] [address] Pharmacist Pharmacy 02/24/24 Denise Alvarado, DISPATCH SUPERVISOR.FELLING MACHINE OPERATOR [id number] [place] [address] Septic Tank Cleaner Internal Medicine 09/11/24 Cole Bower DISPATCH SUPERVISOR.MANAGER APPOINTMENT [address] [facility] [place] [place] [address] Septic Tank Cleaner Internal Medicine 09/11/24 Vp Medical Relationship Specialty Start Date End Date Sarina Adams MD [address] [place] [address] PCP - General Internal Medicine 06/18/15 [facility] [address] [facility] [place] [address] Pharmacist Pharmacy 02/24/24 Denise Alvarado, DISPATCH SUPERVISOR.FELLING MACHINE OPERATOR [address] [place] [address] Septic Tank Cleaner Internal Medicine 09/11/24 Cole Bower DISPATCH SUPERVISOR.MANAGER APPOINTMENT [address] [facility] [place] [address] Septic Tank Cleaner Internal Medicine 09/11/24 Vp Medical Relationship Specialty Start Date End Date Sarina Adams MD [address] [facility] [place] [address] PCP - General Internal Medicine 06/18/15 [facility] [address] [place] [address] Pharmacist Pharmacy 02/24/24 Denise Alvarado, DISPATCH SUPERVISOR.FELLING MACHINE OPERATOR [address] [place] [address] Septic Tank Cleaner Internal Medicine 09/11/24 Cole Bower, DISPATCH SUPERVISOR.MANAGER APPOINTMENT [address] [facility] [place] [address] Septic Tank Cleaner Internal Medicine 09/11/24 Vp Medical Relationship Specialty Start Date End Date Sarina Adams MD [address] [place] [address] PCP - General Internal Medicine 06/18/15 [facility] [address] [facility] [place] [address] Pharmacist Pharmacy 02/24/24 Denise Alvarado, DISPATCH SUPERVISOR.FELLING MACHINE OPERATOR [address] [place] [address] Septic Tank Cleaner Internal Medicine 09/11/24 Cole Bower DISPATCH SUPERVISOR.MANAGER APPOINTMENT [address] [facility] [place] [address] Septic Tank Cleaner Internal Medicine 09/11/24 Vp Medical Relationship Specialty Start Date End Date Sarina Adams MD [address] [place] [address] PCP - General Internal Medicine 06/18/15 [facility] [address] [place] [address] Pharmacist Pharmacy 02/24/24 Denise Alvarado, DISPATCH SUPERVISOR.FELLING MACHINE OPERATOR [address] [place] [address] Septic Tank Cleaner Internal Medicine 09/11/24 Cole Bower, DISPATCH SUPERVISOR.MANAGER APPOINTMENT [address] [place] [address] Septic Tank Cleaner Internal Medicine 09/11/24 Vp Medical Relationship Specialty Start Date End Date Sarina Adams MD [address] [place] [address] PCP - General Internal Medicine 06/18/15 [facility] [address] [place] [address] Pharmacist Pharmacy 02/24/24 Denise Alvarado, DISPATCH SUPERVISOR.FELLING MACHINE OPERATOR [address] [facility] [place] [address] Septic Tank Cleaner Internal Medicine 09/11/24 Cole Bower, DISPATCH SUPERVISOR.MANAGER APPOINTMENT [address] [facility] [place] [address] Septic Tank Cleaner Internal Medicine 09/11/24 Vp Medical Relationship Specialty Start Date End Date Sarina Adams MD [address] [place] [address] PCP - General Internal Medicine 06/18/15 [facility] [address] [facility] [place] [address] Pharmacist Pharmacy 02/24/24 Denise Alvarado, DISPATCH SUPERVISOR.FELLING MACHINE OPERATOR [address] [place] [address] Septic Tank Cleaner Internal Medicine 09/11/24 Cole Bower DISPATCH SUPERVISOR.MANAGER APPOINTMENT [address] [place] [address] Septic Tank Cleaner Internal Medicine 09/11/24 Vp Medical Relationship Specialty Start Date End Date Sarina Adams MD [address] [place] [address] PCP - General Internal Medicine 06/18/15 [facility] [address] [place] [address] Pharmacist Pharmacy 02/24/24 Denise Alvarado, DISPATCH SUPERVISOR.FELLING MACHINE OPERATOR [address] [place] [address] Septic Tank Cleaner Internal Medicine 09/11/24 Cole Bower, DISPATCH SUPERVISOR.MANAGER APPOINTMENT [address] [place] [address] Septic Tank Cleaner Internal Medicine 09/11/24 Vp Medical Relationship Specialty Start Date End Date Sarina Adams MD [address] [place] [address] PCP - General Internal Medicine 06/18/15 [facility] [address] [place] [address] Pharmacist Pharmacy 02/24/24 Denise Alvarado DISPATCH SUPERVISOR.FELLING MACHINE OPERATOR [address] [place] [address] Septic Tank Cleaner Internal Medicine 09/11/24 Cole Bower APRN.MANAGER APPOINTMENT [address] [facility] [place] [address] Septic Tank Cleaner Internal Medicine 09/11/24 Vp Medical Relationship Specialty Start Date End Date Sarina Adams MD [address] [place] [address] PCP - General Internal Medicine 06/18/15 [facility] 1740 [facility] [place] [address] Pharmacist Pharmacy 02/24/24 Denise Alvarado, DISPATCH SUPERVISOR.FELLING MACHINE OPERATOR [address] [place] [address] Septic Tank Cleaner Internal Medicine 09/11/24 Cole Bower DISPATCH SUPERVISOR.MANAGER APPOINTMENT [address] [facility] [place] [address] Septic Tank Cleaner Internal Medicine 09/11/24 Vp Medical Relationship Specialty Start Date End Date Sarina Adams MD [address] [place] [address] PCP - General Internal Medicine 06/18/15 [facility] 17[address] [facility] [place] [address] Pharmacist Pharmacy 02/24/24 Denise Alvarado DISPATCH SUPERVISOR.FELLING MACHINE OPERATOR [address] [place] [address] Septic Tank Cleaner Internal Medicine 09/11/24 Cole Bower APRN.MANAGER APPOINTMENT [address] [place] [address] Septic Tank Cleaner Internal Medicine 09/11/24 Vp Medical Relationship Specialty Start Date End Date Sarina Adams MD [address] [place] [address] PCP - General Internal Medicine 06/18/15 [facility] [address] [place] [address] Pharmacist Pharmacy 02/24/24 Denise Alvarado APRN.FELLING MACHINE OPERATOR [address] [place] [address] Septic Tank Cleaner Internal Medicine 09/11/24 Cole Bower APRN.MANAGER APPOINTMENT [address] [place] [address] Septic Tank Cleaner Internal Medicine 09/11/24 Vp Medical Relationship Specialty Start Date End Date Sarina Adams MD [address] [place] [address] PCP - General Internal Medicine 06/18/15 [facility] [address] [place] [address] Pharmacist Pharmacy 02/24/24 Denise Alvarado APRN.FELLING MACHINE OPERATOR [address] [place] [address] Septic Tank Cleaner Internal Medicine 09/11/24 Cole Bower APRN.MANAGER APPOINTMENT [address] [place] [address] Septic Tank Cleaner Internal Medicine 09/11/24 Vp Medical Relationship Specialty Start Date End Date Sarina Adams MD [address] [place] [address] PCP - General Internal Medicine 06/18/15 [facility] [address] [place] [address] Pharmacist Pharmacy 02/24/24 Denise Alvarado, DISPATCH SUPERVISOR.FELLING MACHINE OPERATOR [address] [place] [address] Septic Tank Cleaner Internal Medicine 09/11/24 Cole Bower DISPATCH SUPERVISOR.MANAGER APPOINTMENT [address] [place] [address] Septic Tank Cleaner Internal Medicine 09/11/24 Vp Medical Relationship Specialty Start Date End Date Sarina Adams MD [address] [place] [address] PCP - General Internal Medicine 06/18/15 [facility] [address] [place] [address] Pharmacist Pharmacy 02/24/24 Denise Alvarado DISPATCH SUPERVISOR.FELLING MACHINE OPERATOR [address] [place] [address] Septic Tank Cleaner Internal Medicine 09/11/24 Cole Bower APRN.MANAGER APPOINTMENT [address] [place] [address] Septic Tank Cleaner Internal Medicine 09/11/24 Vp Medical Relationship Specialty Start Date End Date Sarina Adams MD [address] [place] [address] PCP - General Internal Medicine 06/18/15 [facility] [address] [place] [address] Pharmacist Pharmacy 02/24/24 Denise Alvarado, DISPATCH SUPERVISOR.FELLING MACHINE OPERATOR [address] [place] [address] Septic Tank Cleaner Internal Medicine 09/11/24 Cole Bower DISPATCH SUPERVISOR.MANAGER APPOINTMENT [address] [place] [address] Septic Tank Cleaner Internal Medicine 09/11/24 Vp Medical Relationship Specialty Start Date End Date Sarina Adams MD [address] [place] [address] PCP - General Internal Medicine 06/18/15 [facility] [address] [place] [address] Pharmacist Pharmacy 02/24/24 Denise Alvarado, DISPATCH SUPERVISOR.FELLING MACHINE OPERATOR [address] [place] [address] Septic Tank Cleaner Internal Medicine 09/11/24 Cole Bower DISPATCH SUPERVISOR.MANAGER APPOINTMENT [address] [place] [address] Septic Tank Cleaner Internal Medicine 09/11/24 Vp Medical Relationship Specialty Start Date End Date Sarina Adams MD [address] [place] [address] PCP - General Internal Medicine 06/18/15 [facility] [address] [place] [address] Pharmacist Pharmacy 02/24/24 Denise Alvarado, DISPATCH SUPERVISOR.FELLING MACHINE OPERATOR [address] [facility] [place] [address] Septic Tank Cleaner Internal Medicine 09/11/24 Cole oBwer DISPATCH SUPERVISOR.MANAGER APPOINTMENT [address] [facility] [place] [address] Septic Tank Cleaner Internal Medicine 09/11/24 Vp Medical Relationship Specialty Start Date End Date Sarina Adams MD [address] [facility] [place] [address] PCP - General Internal Medicine 06/18/15 [facility] [address] [facility] [place] [address] Pharmacist Pharmacy 02/24/24 Denise Alvarado, DISPATCH SUPERVISOR.FELLING MACHINE OPERATOR [address] [facility] [place] [address] Septic Tank Cleaner Internal Medicine 09/11/24 Vp Medical Relationship Specialty Start Date End Date Sarina Adams MD [address] [facility] [place] [address] PCP - General Internal Medicine 06/18/15 [facility] [address] [facility] [place] [address] Pharmacist Pharmacy 02/24/24 Denise Alvarado, DISPATCH SUPERVISOR.FELLING MACHINE OPERATOR [address] [place] [address] Septic Tank Cleaner Internal Medicine 09/11/24 Vp Medical Relationship Specialty Start Date End Date Sarina Adams MD [address] [place] [address] PCP - General Internal Medicine 06/18/15 [facility] [address] [place] [address] Pharmacist Pharmacy 02/24/24 Denise Alvarado APRN.FELLING MACHINE OPERATOR [address] [place] [address] Septic Tank Cleaner Internal Medicine 09/11/24 Cole Bower APRN.MANAGER APPOINTMENT [address] [place] [address] Septic Tank Cleaner Internal Medicine 12/26/24 Vp Medical Relationship Specialty Start Date End Date Sarina Adams MD [address] [place] [address] PCP - General Internal Medicine 06/18/15 [facility] [address] [place] [address] Pharmacist Pharmacy 02/24/24 Denise Alvarado DISPATCH SUPERVISOR.FELLING MACHINE OPERATOR [address] [place] [address] Septic Tank Cleaner Internal Medicine 09/11/24 Cole Bower APRN.MANAGER APPOINTMENT [address] [place] [address] Septic Tank Cleaner Internal Medicine 12/26/24 Vp Medical Relationship Specialty Start Date End Date Sarina Adams MD [address] [place] [address] PCP - General Internal Medicine 06/18/15 [facility] [address] [place] [address] Pharmacist Pharmacy 02/24/24 Denise Alvarado, DISPATCH SUPERVISOR.FELLING MACHINE OPERATOR [address] [place] [address] Septic Tank Cleaner Internal Medicine 09/11/24 Cole Bower DISPATCH SUPERVISOR.MANAGER APPOINTMENT [address] [place] [address] Septic Tank Cleaner Internal Medicine 12/26/24 Vp Medical Relationship Specialty Start Date End Date Sarina Adams MD [address] [place] [address] PCP - General Internal Medicine 06/18/15 [facility] [address] [place] [address] Pharmacist Pharmacy 02/24/24 Denise Alvarado, DISPATCH SUPERVISOR.FELLING MACHINE OPERATOR [address] [place] [address] Septic Tank Cleaner Internal Medicine 09/11/24 Cole Bower DISPATCH SUPERVISOR.MANAGER APPOINTMENT [address] [place] [address] Septic Tank Cleaner Internal Medicine 12/26/24 Vp Medical Relationship Specialty Start Date End Date Sarina Adams MD [address] [place] [address] PCP - General Internal Medicine 06/18/15 [facility] [address] [place] [address] Pharmacist Pharmacy 02/24/24 Denise Alvarado, DISPATCH SUPERVISOR.FELLING MACHINE OPERATOR [address] [place] [address] Septic Tank Cleaner Internal Medicine 09/11/24 Cole Bower DISPATCH SUPERVISOR.MANAGER APPOINTMENT [address] [place] [address] Septic Tank Cleaner Internal Medicine 12/26/24 Vp Medical Relationship Specialty Start Date End Date Sarina Adams MD [address] [place] [address] PCP - General Internal Medicine 06/18/15 [facility] [address] [place] [address] Pharmacist Pharmacy 02/24/24 Denise Alvarado, DISPATCH SUPERVISOR.FELLING MACHINE OPERATOR [address] [place] [address] Septic Tank Cleaner Internal Medicine 09/11/24 Cole Bower DISPATCH SUPERVISOR.MANAGER APPOINTMENT [address] [place] [address] Septic Tank Cleaner Internal Medicine 12/26/24 Vp Medical Relationship Specialty Start Date End Date Sarina Adams MD [address] [place] [address] PCP - General Internal Medicine 06/18/15 [facility] [address] [place] [address] Pharmacist Pharmacy 02/24/24 Denise Alvarado, ODILON.FELLING MACHINE OPERATOR [address] [place] [address] Septic Tank Cleaner Internal Medicine 09/11/24 Cole Bower APRN.MANAGER APPOINTMENT [address] [place] [address] Septic Tank Cleaner Internal Medicine 09/11/24 12/22/24 Cole Bower APRN.MANAGER APPOINTMENT [address] [place] [address] Septic Tank Cleaner Internal Medicine 12/26/24 Vp Medical Relationship Specialty Start Date End Date Sarina Adams MD [address] [place] [address] PCP - General Internal Medicine 06/18/15 [facility] [address] [place] [address] Pharmacist Pharmacy 02/24/24 Cole Bower DISPATCH SUPERVISOR.MANAGER APPOINTMENT [address] [place] [address] Septic Tank Cleaner Internal Medicine 12/26/24 Denise Alvarado DISPATCH SUPERVISOR.FELLING MACHINE OPERATOR [address] [place] [address] Septic Tank Cleaner Internal Medicine 02/21/25 Vp Medical Relationship Specialty Start Date End Date Sarina Adams MD [address] [place] [address] PCP - General Internal Medicine 06/18/15 [facility] [address] [place] [address] Pharmacist Pharmacy 02/24/24 Cole Bower, DISPATCH SUPERVISOR.MANAGER APPOINTMENT [address] [place] [address] Septic Tank Cleaner Internal Medicine 12/26/24 Denise Alvarado, DISPATCH SUPERVISOR.FELLING MACHINE OPERATOR [address] [place] [address] Septic Tank Cleaner Internal Medicine 02/21/25 Vp Medical Relationship Specialty Start Date End Date Sarina Adams MD [address] [place] [address] PCP - General Internal Medicine 06/18/15 [facility] [address] [place] [address] Pharmacist Pharmacy 02/24/24 Cole Bower, DISPATCH SUPERVISOR.MANAGER APPOINTMENT [address] [place] [address] Septic Tank Cleaner Internal Medicine 12/26/24 Denise Alvarado, DISPATCH SUPERVISOR.FELLING MACHINE OPERATOR [address] [place] [address] Septic Tank Cleaner Internal Medicine 02/21/25 Vp Medical Relationship Specialty Start Date End Date Sarina Adams MD [address] [place] [address] PCP - General Internal Medicine 06/18/15 [facility] [address] [place] [address] Pharmacist Pharmacy 02/24/24 Cole Bower APRN.MANAGER APPOINTMENT [address] [place] [address] Septic Tank Cleaner Internal Medicine 12/26/24 Denise Alvarado APRN.FELLING MACHINE OPERATOR [address] [place] [address] Septic Tank Cleaner Internal Medicine 02/21/25 Vp Medical Relationship Specialty Start Date End Date Sarina Adams MD [address] [place] [address] PCP - General Internal Medicine 06/18/15 [facility] [address] [place] [address] Pharmacist Pharmacy 02/24/24 Cole Bower APRN.MANAGER APPOINTMENT [address] [place] [address] Septic Tank Cleaner Internal Medicine 12/26/24 Denise Alvarado, ODILON.FELLING MACHINE OPERATOR [address] [place] [address] Septic Tank Cleaner Internal Medicine 02/21/25 Vp Medical Relationship Specialty Start Date End Date Sarina Adams MD [address] [place] [address] PCP - General Internal Medicine 06/18/15 [facility] [address] [place] [address] Pharmacist Pharmacy 02/24/24 Cole Bower APRN.MANAGER APPOINTMENT [address] [place] [address] Septic Tank Cleaner Internal Medicine 12/26/24 Denise Alvarado APRN.FELLING MACHINE OPERATOR [address] [place] [address] Septic Tank Cleaner Internal Medicine 02/21/25 Vp Medical Relationship Specialty Start Date End Date Sarina Adams MD [address] [place] [address] PCP - General Internal Medicine 06/18/15 [facility] [address] [place] [address] Pharmacist Pharmacy 02/24/24 Cole Bower APRN.MANAGER APPOINTMENT [address] [place] [address] Septic Tank Cleaner Internal Medicine 12/26/24 Denise Alvarado APRN.FELLING MACHINE OPERATOR [address] [place] [address] Septic Tank Cleaner Internal Medicine 02/21/25 Vp Medical Relationship Specialty Start Date End Date Sarina Adams MD [address] [place] [address] PCP - General Internal Medicine 06/18/15 [facility] [address] [place] [address] Pharmacist Pharmacy 02/24/24 Cole Bower APRN.MANAGER APPOINTMENT [address] [place] [address] Septic Tank Cleaner Internal Medicine 12/26/24 Denise Alvarado, DISPATCH SUPERVISOR.FELLING MACHINE OPERATOR [address] [place] [address] Septic Tank Cleaner Internal Medicine 02/21/25 Vp Medical Relationship Specialty Start Date End Date Sarina Adams MD [address] [place] [address] PCP - General Internal Medicine 06/18/15 [facility] [address] [place] [address] Pharmacist Pharmacy 02/24/24 Cole Bower APRN.MANAGER APPOINTMENT [address] [place] [address] Septic Tank Cleaner Internal Medicine 12/26/24 Denise Alvarado, DISPATCH SUPERVISOR.FELLING MACHINE OPERATOR [address] [place] [address] Septic Tank Cleaner Internal Medicine 02/21/25 Vp Medical Relationship Specialty Start Date End Date Sarina Adams MD [address] [place] [address] PCP - General Internal Medicine 06/18/15 [facility] [address] [place] [address] Pharmacist Pharmacy 02/24/24 Cole Bower APRN.MANAGER APPOINTMENT [address] [place] [address] Septic Tank Cleaner Internal Medicine 12/26/24 Denise Alvarado, DISPATCH SUPERVISOR.FELLING MACHINE OPERATOR [address] [place] [address] Septic Tank Cleaner Internal Medicine 02/21/25 Vp Medical Relationship Specialty Start Date End Date Sarina Adams MD [address] [place] [address] PCP - General Internal Medicine 06/18/15 [facility] [address] [place] [address] Pharmacist Pharmacy 02/24/24 Cole Bower DISPATCH SUPERVISOR.MANAGER APPOINTMENT [address] [place] [address] Septic Tank Cleaner Internal Medicine 12/26/24 Denise Alvarado, DISPATCH SUPERVISOR.FELLING MACHINE OPERATOR [address] [place] [address] Septic Tank Cleaner Internal Medicine 02/21/25 Vp Medical Relationship Specialty Start Date End Date Sarina Adams MD [address] [place] [address] PCP - General Internal Medicine 06/18/15 [facility] [address] [place] [address] Pharmacist Pharmacy 02/24/24 Cole Bower DISPATCH SUPERVISOR.MANAGER APPOINTMENT [address] [place] [address] Septic Tank Cleaner Internal Medicine 12/26/24 Denise Alvarado, DISPATCH SUPERVISOR.FELLING MACHINE OPERATOR [address] [place] [address] Septic Tank Cleaner Internal Medicine 02/21/25 Vp Medical Relationship Specialty Start Date End Date Sarina Adams MD [address] [place] [address] PCP - General Internal Medicine 06/18/15 [facility] [address] [place] [address] Pharmacist Pharmacy 02/24/24 Cole oBwer DISPATCH SUPERVISOR.MANAGER APPOINTMENT [address] [place] [address] Septic Tank Cleaner Internal Medicine 12/26/24 Denise Alvarado APRN.FELLING MACHINE OPERATOR [address] [place] [address] Septic Tank Cleaner Internal Medicine 02/21/25 Vp Medical Relationship Specialty Start Date End Date Sarina Adams MD [address] [place] [address] PCP - General Internal Medicine 06/18/15 [facility] [address] [place] [address] Pharmacist Pharmacy 02/24/24 Cole Bower DISPATCH SUPERVISOR.MANAGER APPOINTMENT [address] [place] [address] Septic Tank Cleaner Internal Medicine 12/26/24 Denise Alvarado APRN.FELLING MACHINE OPERATOR [address] [place] [address] Septic Tank Cleaner Internal Medicine 02/21/25 Team Status: Active Member [...] BE BASED ON THE PRIMARY CLINICAL RECORDS. [employer] provides no warranty or guarantee of the accuracy or completeness of information in this document.
[2025-08-25] VITALS: O2SAT 97
[2025-08-25 00:37] LABS: D-Dimer Quantitative (DVT/PE) 1.13 FEU/ug/m (0.27-0.49)
--- NOTE | 2025-08-25 01:17 | CT_ITS ---
PROCEDURE: CTA CHEST W/WO CONTRAST 08/25/2025 REASON FOR EXAM: ELEVATED D. DIMER. TECHNIQUE: Procedure Code: [id number] Modality: CT Procedure: CTA CHEST W/WO CONTRAST Multiplanar Sagittal and Coronal images were obtained. CONTRAST: isovue 370 VOLUME: 100 mL One or more dose reduction techniques were used (e.g., Automated exposure control, adjustment of the mA and/or kV according to patient size, use of iterative reconstruction technique). RADIATION DOSE SUMMARY: CTDI Vol 8.61 mGy DLP :291.94 mGycm COMPARISON: CT scan on 07/09/2025. Chest radiograph on 08/24/2025. FINDINGS: Mild cardiomegaly. Moderate pericardial effusion. Mild bilateral pleural effusions. Passive atelectatic airspace disease of the lower lobes. Diffuse irregularity of the hepatic contour, probably chronic parenchymal liver disease. Mild splenomegaly. Scattered calcified splenic granulomas. Calcified mediastinal and right hilar lymph nodes are noted with the largest measuring 1.3 cm, chronic finding. Well-defined 1.5 cm calcified granuloma of the right lower lobe. Mild interstitial pulmonary congestion. Well-defined cyst is noted in the right upper lobe measuring 1.5 cm. Multifocal ground-glass densities of the lungs are noted in the upper lobes, right middle lobe, lingula and bilateral lower lobes, possibly multifocal congestion and/or pneumonia. Bilateral basilar bronchiectatic changes. Mild bilateral basilar peribronchial interstitial thickening, probably bronchitis. Mild diffuse spondylosis. Normal enhancement of the main pulmonary artery and right and left pulmonary arteries. Normal enhancement of the bilateral peripheral pulmonary arteries. There is no demonstrated pulmonary embolism. Normal thoracic aorta and visualized great vessels. There is no demonstrated aortic dissection. Normal visualized trachea. CT/CTA Chest W/WO Contrast IMPRESSION: Mild cardiomegaly. Moderate pericardial effusion. Mild bilateral pleural effusions. Passive atelectatic airspace disease of the lower lobes. Diffuse irregularity of the hepatic contour, probably chronic parenchymal liver disease. Mild splenomegaly. Scattered calcified splenic granulomas. Calcified mediastinal and right hilar lymph nodes are noted with the largest me asuring 1.3 cm, chronic finding. Well-defined 1.5 cm calcified granuloma of the right lower lobe. Mild interstitial pulmonary congestion. Well-defined cyst is noted in the right upper lobe measuring 1.5 cm. Multifocal ground-glass densities of the lungs are noted in the upper lobes, ri ght middle lobe, lingula and bilateral lower lobes, possibly multifocal congestion and/or pneumonia. Bilateral basilar bronchiectatic changes. Mild bilateral basilar peribronchial interstitial thickening, probably bronchit is. Mild diffuse spondylosis. Reading Location: [place] [address]
[2025-08-25] MEDS: Insulin Glargine-YFGN 100 UNIT/ML Pen 40 UNIT SC ×2 (02:33→20:56)
[2025-08-25 04:55] LABS: Hematocrit 33.3 % (37-47); Hemoglobin 10.3 g/dL (12.0-15.0); Mean Corp Hgb Conc 30.9 g/dL (32-36); Mean Corpuscular Volume 92.5 fL (81-99); Mean Platelet Vol. 11.2 fl (6.2-12.0); Platelet Count 110 K/mm3 (150-450); RBC Distribution Width CV 16.0 % (11.6-14.6); RBC Distribution Width SD 54.5 fl (35.1-43.9); Red Blood Count 3.60 M/mm3 (4.2-5.4); White Blood Count 8.1 K/mm3 (4.4-11.0)
[2025-08-25 05:17] LABS: Anion Gap 10 (5-15); BUN 32 mg/dL (4-19); BUN/Creat Ratio 22.3 RATIO (10-20); Calcium,Total 8.9 mg/dL (7.6-11.0); Carbon Dioxide 25.3 mmol/L (21.0-32.0); Chloride 103 mmol/L (98-108); Estimated Creatinine Clearance 55.82 ml/min (50-250); Glucose 130 mg/dL (70-99); Potassium 4.1 mmol/L (3.3-5.1)
[2025-08-25 05:50] VITALS: BP 138/74; PULSE 72; RESP 18; TEMP 36.7; O2SAT 97
[2025-08-25] MEDS: 0.9% Saline Lock 10 ML Syringe IV (05:57)
[2025-08-25] MEDS: Potassium Chloride Oral Tablet 20 MEQ PO (09:05)
[2025-08-25] MEDS: CARBOXYMETHYLCELLULOSE SODIUM 1 DRP DROPS OPHTHALMIC ×4 (09:05→20:57)
[2025-08-25] MEDS: Cholecalciferol (Vit D3) 125 MCG CAPSULE (5,000 UNITS) PO (09:06)
--- NOTE | 2025-08-25 09:26 | CASEMGMT ---
Social Work SW spoke with the patient and completed a SDOH. Patient reported no concerns. Patient reported no safety concerns at home. She reported nobody is physically hurting her or threatening her. She reported nobody cusses, or yells at her or calls her names. Patient has 5 rounds red circles on her right leg. She reported she does not know where she got them. She reported they do not hurt. She reported nobody in her house smokes. Patient lives at home with her son who has a intellectual disability. Patient reported her son can dress and shower himself. She reported he can cook for himself. Her brother is her neighbor and can help her son if he needs it. The JOSEE helps with transportation. ANA Benavidez
--- NOTE | 2025-08-25 10:36 | CASEMGMT ---
Social Work SW spoke with the patient regarding DC to a SNF. SW attempted to give the patient a list of SNF providers created in [facility] and the patient said no. Patient reported [facility] wants to [facility]
[2025-08-25 12:00] VITALS: BP 127/64; PULSE 72; RESP 18; TEMP 36.7; O2SAT 97
--- NOTE | 2025-08-25 17:01 | PN.HOSP_ITS ---
Reason for Visit Chief Complaint: Shortness of breath and lower extremity swelling Subjective Subjective Feeling little bit better but still short of breath, somewhat tired, does have a cough. Has some circular appearing most burn wounds on right jacobs but reports she does not know how they got there Objective Data Objective Data Vital Signs: Vital Signs Temp Pulse Resp BP Pulse Ox O2 Del Method O2 Flow Rate 98.1 F 72 18 138/74 H 97 Nasal Cannula 2 08/25/25 05:50 08/25/25 05:50 08/25/25 05:50 08/25/25 05:50 08/25/25 05:50 08/25/25 11:39 08/25/25 11:39 Oxygen Flow Rate (L/min) 2 Oxygen Delivery Method Nasal Cannula Weight: 123.7 kg Body Mass Index (BMI) 46.7 Intake & Output: Intake and Output for Last 24 Hours 08/23/25 08/24/25 08/25/25 23:59 23:59 23:59 Intake Total 100 / 100 0 / 0 Output Total 0 / 0 Balance 100 / 100 0 / 0 Lab / Micro Data 08/25/25 03:55 08/25/25 03:55 Labs: Laboratory Results - last 24 hr 08/24/25 15:20: Sodium 139, Potassium 4.1, Chloride 103, Carbon Dioxide 27.5, Anion Gap 9, BUN 33 H, Creatinine 1.36 H, Estim Creat Clear Calc 56.46, Est GFR (MDRD) Non-Af 45 L, BUN/Creatinine Ratio 24.6 H, Glucose 169 H, Calcium 9.1, T roponin T High Sens 36 H 08/24/25 17:59: Troponin T Hi Sens 2 Hr 32 H, NT pro BNP II 157 08/24/25 20:10: Troponin T Hi Sens 4Hr 31 H, TSH 12.000 H, Free T4 1.40 08/24/25 23:53: D-Dimer Quant (PE/DVT) 1.13 H* 08/25/25 00:10: POC Glucose 115 H 08/25/25 01:19: POC Glucose 156 H 08/25/25 03:55: WBC 8.1, RBC 3.60 L, Hgb 10.3 L, Hct 33.3 L, MCV 92.5, MCH 28.6, MCHC 30.9 L, RDW Std Deviation 54.5 H, RDW Coeff of Catina 16.0 H, Plt Count 110 L, MPV 11.2, Sodium 139, Potassium 4.1, Chloride 103, Carbon Dioxide 25.3, Anion Gap 10, BUN 32 H, Creatinine 1.41 H, Estim Creat Clear Calc 55.82, Est GFR (MDRD) Non-Af 43 L, BUN/Creatinine Ratio 22.3 H, Glucose 130 H, Calcium 8.9 08/25/25 08:30: POC Glucose 100 08/25/25 12:10: POC Glucose 126 H Radiography Diagnostic Testing: Radiology Impression Echocardiogram 08/24/25 22:22 Interpretation Summary Mild concentric left ventricular hypertrophy. Left ventricular systolic function is normal. Small (<1.0 cm) pericardial effusion. There are no echocardiographic indications of cardiac tamponade. Ordering Physician: Franky Haque Referring Physician: Rebeka Rabago Performed By: Asiya Kramer, LEDA, RVT Venous Duplex 08/24/25 22:45 IMPRESSION: No deep venous thrombosis identified in the extremities. Reading Location: [facility] Chest CTA 08/25/25 01:17 IMPRESSION: Mild cardiomegaly. Moderate pericardial effusion. Mild bilateral pleural effusions. Passive atelectatic airspace disease of the lower lobes. Diffuse irregularity of the hepatic contour, probably chronic parenchymal liver disease. Mild splenomegaly. Scattered calcified splenic granulomas. Calcified mediastinal and right hilar lymph nodes are noted with the largest measuring 1.3 cm, chronic finding. Well-defined 1.5 cm calcified granuloma of the right lower lobe. Mild interstitial pulmonary congestion. Well-defined cyst is noted in the right upper lobe measuring 1.5 cm. Multifocal ground-glass densities of the lungs are noted in the upper lobes, right middle lobe, lingula and bilateral lower lobes, possibly multifocal congestion and/or pneumonia. Bilateral basilar bronchiectatic changes. Mild bilateral basilar peribronchial interstitial thickening, probably bronchitis. Mild diffuse spondylosis. Reading Location: [place] [id number] Physical Exam Narrative General: Alert, HEENT: Atraumatic, normocephalic Eyes: Anicteric, normal conjunctiva, extraocular movements grossly intact Neck: Supple Respiratory: Does have some increased respiratory effort, diminished airflow bilaterally Cardiovascular: Regular rate and rhythm GI: Soft, nontender, nondistended Extremities: Has some bilateral lower extremity edema Musculoskeletal: Moving all extremities Neuro: No overt focal neurological deficits Skin: Has several circular wounds on right anterior lateral lower leg, almost appear to be in an organized pattern, unclear if she hit something or if these are intentional thomas, social work aware, certainly appear to be an almost an intentional pattern Psych: Cooperative Assessment & Plan Assessment/Plan (1) CHF exacerbation: PLAN: Plan 59-year-old female with history of hypothyroidism, GERD, diabetes, chronic hypoxic respiratory failure on 2 L home O2, heart failure with preserved ejection fraction presented to [facility] ED 08/24/2025 with shortness of breath and lower extremity swelling. In the ED temp 98.5, heart rate 97, blood pressure 133/55, pulse ox 94% on 2 L nasal cannula. White count 9.2 with hemoglobin 10.5, creatinine 1.36, glucose 169, Trope 36 with a repeat of 32 and 4-hour troponin of 31. proBNP only reported out as 157. TSH of 12 which is improved from previous with free T4 of 1.4. Chest x-ray showed CHF with increased pulmonary edema compared to previous. proBNP 157 but felt to be underestimated given her obesity. She was given dose of IV Lasix and hospitalist contacted for admission. #Acute exacerbation of combined heart failure -Admit to telemetry -proBNP only reported out 157 but felt to possibly be falsely low, clinical picture also does support overload -CXR with cardiomegaly and worsening vascular congestion, ultimately a CTA obtained as a D-dimer was checked and was elevated and this showed mild interstitial pulmonary congestion as well as multifocal ground glass densities of the lungs possibly multifocal congestion and/or pneumonia with mild bilateral basilar peribronchial interstitial thickening probably bronchitis -Continue IV lasix - Echo in July with EF of 40 to 45% with a moderate pericardial effusion with no evidence of tamponade -Repeat echo ordered and showed moderate concentric left ventricular hypertrophy with improved EF and small effusion with no evidence of tamponade -Daily weights, I's and O's - heart healthy diet # Right lower extremity wound -Patient has several wounds on her right calf that are very circular and clustered together in nature, most appear to be burn wounds but patient very adamant she has no idea how these There, social work aware, do appear to be erythematous and possibly early infection so patient started on antibiotics #Hypothyroidism -Continue Synthroid - TSH of 12 and free T41.4 - This is certainly improved from previous, suspect her high dose of home Synthroid was due to how she was taking it which limited absorption - Admitting hospitalist decreased to 200 mcg daily, will need repeat labs in 4 to 6 weeks #Type 2 diabetes mellitus -Glucose checks and sliding scale insulin - Home insulin continued but at lower dose to avoid hypoglycemia, can uptitrate as tolerated #GERD -Continue PPI #Morbid obesity -BMI documented as 46.8 kg/m? at time of admission -Complicates treatment, prognosis, outcomes -Recommend weight loss and lifestyle changes #DVT ppx: Lovenox twice daily Asya Hernandez MD Charges/Coding Visit Charges Inpatient E&M: 65408 Subs Hosp L2
[2025-08-25] MEDS: Ampicillin/Sulbactam 3 GM in 0.9% Normal Saline (100mL MB+) 100 ML IV ×2 (17:23→23:11)
[2025-08-25 17:43] VITALS: BP 132/74; PULSE 74; RESP 18; TEMP 36.8; O2SAT 96
[2025-08-25] MEDS: HYDROcodone Bitartrate/Apap 5/325 Tablet PO (19:45)
[2025-08-25 20:52] VITALS: BP 141/79; PULSE 81; RESP 18; TEMP 36.8; O2SAT 94
[2025-08-25 22:42] LABS: Allen Test Positive; Base Excess 4 mmol/L (-2 to +2); FI02 2.0; PO2 59 mmHG (75-100); SITE R Radial; SO2 90 % (94-98)
[2025-08-25 23:12] VITALS: O2SAT 100
[2025-08-26 03:00] VITALS: BP 116/67; PULSE 70; RESP 18; TEMP 36.6; O2SAT 95
[2025-08-26] MEDS: Ampicillin/Sulbactam 3 GM in 0.9% Normal Saline (100mL MB+) 100 ML IV ×4 (05:58→23:18)
[2025-08-26 06:28] LABS: Hematocrit 31.0 % (37-47); Hemoglobin 9.5 g/dL (12.0-15.0); Immature Granulocytes Count 0.050 X10^3/uL (0.0-0.0); Mean Corp Hgb Conc 30.6 g/dL (32-36); Mean Corpuscular Volume 93.7 fL (81-99); Mean Platelet Vol. 10.8 fl (6.2-12.0); NRBC Flagged by Analyzer 0 % (0-5); Platelet Count 131 K/mm3 (150-450); RBC Distribution Width CV 16.4 % (11.6-14.6); RBC Distribution Width SD 55.8 fl (35.1-43.9); Red Blood Count 3.31 M/mm3 (4.2-5.4); White Blood Count 6.5 K/mm3 (4.4-11.0)
[2025-08-26 06:54] LABS: Anion Gap 8 (5-15); BUN 37 mg/dL (4-19); BUN/Creat Ratio 19.6 RATIO (10-20); Calcium,Total 8.9 mg/dL (7.6-11.0); Carbon Dioxide 29.5 mmol/L (21.0-32.0); Chloride 104 mmol/L (98-108); Estimated Creatinine Clearance 41.42 ml/min (50-250); Glucose 125 mg/dL (70-99); Potassium 4.3 mmol/L (3.3-5.1)
[2025-08-26 09:31] VITALS: BP 133/63; PULSE 72; RESP 16; TEMP 36.5; O2SAT 94
[2025-08-26 09:32] VITALS: O2SAT 93
[2025-08-26] MEDS: CARBOXYMETHYLCELLULOSE SODIUM 1 DRP DROPS OPHTHALMIC ×2 (09:37→21:38)
[2025-08-26] MEDS: Potassium Chloride Oral Tablet 20 MEQ PO (09:38)
[2025-08-26] MEDS: Furosemide 20 MG/2 ML VIAL IV (09:47)
[2025-08-26] MEDS: 0.9% Saline Lock 10 ML Syringe IV ×2 (09:52→17:30)
[2025-08-26] MEDS: Cholecalciferol (Vit D3) 125 MCG CAPSULE (5,000 UNITS) PO (09:55)
--- NOTE | 2025-08-26 13:07 | PCM.PN.HOSP ---
Reason for Visit Chief Complaint: Shortness of breath and lower extremity swelling Subjective Subjective Still short of breath but feeling a little bit better today, is coughing and has sputum production, was able to send sample, still has some lower extremity swelling Objective Data Objective Data Vital Signs: Vital Signs Temp Pulse Resp BP Pulse Ox O2 Del Method O2 Flow Rate 97.7 F L 72 16 133/63 H 93 Nasal Cannula 2 08/26/25 09:31 08/26/25 09:31 08/26/25 09:31 08/26/25 09:31 08/26/25 09:32 08/26/25 10:06 08/26/25 10:06 Oxygen Flow Rate (L/min) 2 Oxygen Delivery Method Nasal Cannula Weight: 123.7 kg Body Mass Index (BMI) 46.7 Intake & Output: Intake and Output for Last 24 Hours 08/24/25 08/25/25 08/26/25 23:59 23:59 23:59 Intake Total 100 / 100 100 / 100 300 / 300 Output Total 0 / 0 Balance 100 / 100 100 / 100 300 / 300 Lab / Micro Data 08/26/25 05:59 08/26/25 05:59 Labs: Laboratory Results - last 24 hr 08/25/25 17:15: POC Glucose 145 H 08/25/25 20:54: POC Glucose 231 H 08/26/25 05:59: WBC 6.5, RBC 3.31 L, Hgb 9.5 L, Hct 31.0 L, MCV 93.7, MCH 28.7, MCHC 30.6 L, RDW Std Deviation 55.8 H, RDW Coeff of Catina 16.4 H, Plt Count 131 L, MPV 10.8, Immature Gran % (Auto) 0.800, Neut % (Auto) 73.7 H, Lymph % (Auto) 13.0 L, [place] % (Auto) 9.1, Eos % (Auto) 3.1, Baso % (Auto) 0.3, Absolute Neuts (auto) 4.8, Absolute Lymphs (auto) 0.84, Nucleated RBC % 0, Sodium 141, Potassium 4.3, Chloride 104, Carbon Dioxide 29.5, Anion Gap 8, BUN 37 H, Creatinine 1.90 H, Estim Creat Clear Calc 41.42 L, Est GFR (MDRD) Non-Af 30 L, BUN/Creatinine Ratio 19.6, Glucose 125 H, Calcium 8.9 08/26/25 11:30: POC Glucose 127 H Micro: Microbiology 08/25/25 18:20 Mucosa - Nasopharyngeal Respiratory Panel (PCR) - Final 08/25/25 17:50 Mucosa - Nasopharyngeal Coronavirus COVID-19 PCR - Final ABG Data ABG results: ABG 08/25/25 22:39 Specimen Type ART Sample Site R Radial pH 7.39 Bicarbonate Actual 29.1 H Total CO2 31 Base Excess 4 H O2 Saturation 90 L O2 % 2.0 ABG pCO2 47.5 H ABG pO2 59 L Gabriel Test Positive O2 Delivery Device Cannula Vent Mode Not entered Physical Exam Narrative General: Alert, HEENT: Atraumatic, normocephalic Eyes: Anicteric, normal conjunctiva, extraocular movements grossly intact Neck: Supple Respiratory: Improving respiratory effort, still with fairly poor airflow Cardiovascular: Regular rate and rhythm GI: Soft, nontender, nondistended Extremities: 1-2+ bilateral lower extremity pitting edema, has some left dorsal lateral foot swelling and portion other swelling but denies any pain Musculoskeletal: Moving all extremities Neuro: No overt focal neurological deficits Skin: Has several circular wounds on right anterior lateral lower leg, almost appear to be in an organized pattern, unclear if she hit something or if these are intentional thomas, still some erythema surrounding Psych: Cooperative Assessment & Plan Assessment/Plan (1) CHF exacerbation: PLAN: Plan 59-year-old female with history of hypothyroidism, GERD, diabetes, chronic hypoxic respiratory failure on 2 L home O2, heart failure with preserved ejection fraction presented to [facility] ED 08/24/2025 with shortness of breath and lower extremity swelling. In the ED temp 98.5, heart rate 97, blood pressure 133/55, pulse ox 94% on 2 L nasal cannula. White count 9.2 with hemoglobin 10.5, creatinine 1.36, glucose 169, Trope 36 with a repeat of 32 and 4-hour troponin of 31. proBNP only reported out as 157. TSH of 12 which is improved from previous with free T4 of 1.4. Chest x-ray showed CHF with increased pulmonary edema compared to previous. proBNP 157 but felt to be underestimated given her obesity. She was given dose of IV Lasix and hospitalist contacted for admission. # Shortness of breath secondary to acute exacerbation of combined heart failure +/- upper respiratory infection -08/26: Patient presented with lower extremity edema and CTA that queried pulmonary congestion. proBNP was only 157 but was felt to be falsely low and patient was started on IV diuretics. Echo in July EF of 40 to 45%, repeat echo on floor with moderate concentric left ventricular hypertrophy and improved EF. As hospitalization progressed patient actually was producing sputum and quickly developed JOSIE with IV diuresis, reviewing CTA does appear to have areas with air bronchograms and appears suspicious for multifocal pneumonia. COVID and respiratory panel negative, patient was able to produce purulent appearing sputum sample to send for culture. Will send urine antigens and start Mucinex and DuoNebs. Continue Unasyn and add azithromycin, monitor weights and volume status, does still have some peripheral edema but given proBNP, JOSIE, and lack of clinical improvement with diuresis we will hold dose this afternoon and monitor on antibiotics and volume status, can resume IV diuresis in the a.m. pending clinical status and if there does still seem to be a large component of overload contributing to symptoms # JOSIE on CKD stage IIIb -08/26: Creatinine on presentation 1.36, yesterday 1.41 however today is 1.90. Appears baseline may be around 1.5, holding diuresis. Daily weights, difficulty getting I's and O's from patient, will check postvoid. Will temporarily decrease gabapentin dosing due to decreased creatinine clearance and will hold potassium given her potassium today is 4.3, JOSIE, and Lasix held # Right lower extremity wound -Patient has several wounds on her right calf that are very circular and clustered together in nature, most appear to be burn wounds but patient very adamant she has no idea how these There, social work aware, do appear to be erythematous and possibly early infection so patient started on antibiotics -08/26: Patient started on Unasyn, still appears red, continue antibiotics #Hypothyroidism -Continue Synthroid - TSH of 12 and free T41.4 - This is certainly improved from previous, suspect her high dose of home Synthroid was due to how she was taking it which limited absorption - Admitting hospitalist decreased to 200 mcg daily, will need repeat labs in 4 to 6 weeks -08/26: Tolerating current dose #Type 2 diabetes mellitus -Glucose checks and sliding scale insulin - Home insulin continued but at lower dose to avoid hypoglycemia, can uptitrate as tolerated -08/26: Given JOSIE will down titrate long-acting insulin and continue Premeal and sliding scale insulin as there is likely decreased clearance of insulin and want to avoid hypoglycemia Chronic medical problems and/or problems not being actively addressed during today's encounter: #GERD -Continue PPI #Morbid obesity -BMI documented as 46.8 kg/m? at time of admission -Complicates treatment, prognosis, outcomes -Recommend weight loss and lifestyle changes #DVT ppx: Lovenox twice daily Asya Hernandez MD Charges/Coding Visit Charges Inpatient E&M: 36442 Subs Hosp L2
--- NOTE | 2025-08-26 14:00 | RAD_ITS ---
PROCEDURE: FOOT 2 VIEWS 08/26/2025 REASON FOR EXAM: FOCAL LEFT LATERAL FOOT SWELLING TECHNIQUE: Procedure Code: RADFO2 Modality: DX Procedure: FOOT 2 VIEWS Laterality: Left FINDINGS: No acute fracture or dislocations. Fifth metatarsal head possible erosions may reflect osteomyelitis. Extensive soft tissue edema about the forefoot. No radiographic foreign body. RAD/Foot 2 Views IMPRESSION: Fifth metatarsal head possible erosions may reflect osteomyelitis. No acute fra cture or dislocations. Extensive soft tissue edema about the forefoot. Reading Location: [id number]
[2025-08-26] MEDS: Azithromycin 500 MG in 0.9% Normal Saline (250mL Bag) 250 ML 250 MG IV (14:28)
[2025-08-26 17:09] VITALS: BP 138/57; PULSE 79; RESP 18; TEMP 36.6; O2SAT 93
[2025-08-26 19:40] VITALS: PULSE 75; RESP 18
[2025-08-26 21:13] VITALS: BP 154/69; PULSE 77; RESP 16; TEMP 36.3; O2SAT 97
[2025-08-26] MEDS: Insulin Glargine-YFGN 100 UNIT/ML Pen 30 UNIT SC (21:27)
[2025-08-27] VITALS (7 sets, daily range): BP systolic 114–143; BP diastolic 55–69; PULSE 74–85; RESP 18–20; TEMP 36.4–36.8; O2SAT 93–95; BMI 46.6
[2025-08-27] MEDS: HYDROcodone Bitartrate/Apap 5/325 Tablet PO (03:31)
[2025-08-27] MEDS: Ampicillin/Sulbactam 3 GM in 0.9% Normal Saline (100mL MB+) 100 ML IV ×3 (05:37→17:27)
[2025-08-27 06:08] LABS: Hematocrit 30.8 % (37-47); Hemoglobin 9.5 g/dL (12.0-15.0); Immature Granulocytes Count 0.060 X10^3/uL (0.0-0.0); Mean Corp Hgb Conc 30.8 g/dL (32-36); Mean Corpuscular Volume 94.2 fL (81-99); Mean Platelet Vol. 11.1 fl (6.2-12.0); NRBC Flagged by Analyzer 0 % (0-5); Platelet Count 125 K/mm3 (150-450); RBC Distribution Width CV 15.9 % (11.6-14.6); RBC Distribution Width SD 55.1 fl (35.1-43.9); Red Blood Count 3.27 M/mm3 (4.2-5.4); White Blood Count 5.5 K/mm3 (4.4-11.0)
[2025-08-27 06:31] LABS: Anion Gap 9 (5-15); BUN 39 mg/dL (4-19); BUN/Creat Ratio 21.4 RATIO (10-20); Calcium,Total 8.8 mg/dL (7.6-11.0); Carbon Dioxide 27.8 mmol/L (21.0-32.0); Chloride 106 mmol/L (98-108); Estimated Creatinine Clearance 43.37 ml/min (50-250); Glucose 148 mg/dL (70-99); Potassium 4.6 mmol/L (3.3-5.1)
[2025-08-27] MEDS: Cholecalciferol (Vit D3) 125 MCG CAPSULE (5,000 UNITS) PO (08:54)
[2025-08-27] MEDS: CARBOXYMETHYLCELLULOSE SODIUM 1 DRP DROPS OPHTHALMIC ×2 (08:58→15:16)
[2025-08-27] MEDS: Azithromycin 500 MG in 0.9% Normal Saline (250mL Bag) 250 ML 250 MG IV (09:11)
--- NOTE | 2025-08-27 09:47 | PCM.PN.HOSP ---
Subjective Subjective Feels little bit better, no issues overnight. She is on her baseline oxygen currently Objective Data Objective Data Vital Signs: Vital Signs Temp Pulse Resp BP Pulse Ox O2 Del Method O2 Flow Rate 97.9 F 82 18 126/56 H 94 Nasal Cannula 2 08/27/25 08:50 08/27/25 08:50 08/27/25 08:50 08/27/25 08:50 08/27/25 08:50 08/27/25 08:50 08/27/25 08:50 Oxygen Flow Rate (L/min) 2 Oxygen Delivery Method Nasal Cannula Weight: 271 lb 9.752 oz Body Mass Index (BMI) 46.6 Intake & Output: Intake and Output for Last 24 Hours 08/26/25 08/27/25 08/28/25 03:59 03:59 03:59 Intake Total 200 / 200 1250 / 1250 100 / 100 Output Total 2200 / 2200 800 / 800 Balance 200 / 200 -950 / -950 -700 / -700 Lab / Micro Data 08/27/25 05:41 08/27/25 05:41 Labs: Laboratory Results - last 24 hr 08/26/25 11:30: POC Glucose 127 H 08/26/25 17:02: POC Glucose 159 H 08/26/25 21:15: POC Glucose 157 H 08/27/25 05:41: WBC 5.5, RBC 3.27 L, Hgb 9.5 L, Hct 30.8 L, MCV 94.2, MCH 29.1, MCHC 30.8 L, RDW Std Deviation 55.1 H, RDW Coeff of Catina 15.9 H, Plt Count 125 L, MPV 11.1, Immature Gran % (Auto) 1.100 H, Neut % (Auto) 73.3 H, Lymph % (Auto) 12.2 L, [place] % (Auto) 8.7, Eos % (Auto) 4.2, Baso % (Auto) 0.5, Absolute Neuts (auto) 4.0, Absolute Lymphs (auto) 0.67 L, Nucleated RBC % 0, Sodium 143, Potassium 4.6, Chloride 106, Carbon Dioxide 27.8, Anion Gap 9, BUN 39 H, Creatinine 1.81 H, Estim Creat Clear Calc 43.37 L, Est GFR (MDRD) Non-Af 32 L, BUN/Creatinine Ratio 21.4 H, Glucose 148 H, Calcium 8.8 Micro: Microbiology 08/26/25 09:45 Sputum, Expectorated/Coughed Gram Stain - Final 08/26/25 14:35 Urine, Clean Catch Legionella Antigen - Final 08/26/25 14:35 Urine, Clean Catch Streptococcus pneumoniae Antigen (M - Final 08/25/25 18:20 Mucosa - Nasopharyngeal Respiratory Panel (PCR) - Final 08/25/25 17:50 Mucosa - Nasopharyngeal Coronavirus COVID-19 PCR - Final Radiography Diagnostic Testing: Radiology Impression Foot X-Ray 08/26/25 14:00 IMPRESSION: Fifth metatarsal head possible erosions may reflect osteomyelitis. No acute fracture or dislocations. Extensive soft tissue edema about the forefoot. Reading Location: [facility] Physical Exam Narrative General: Alert, Oriented x3, Cooperative, No apparent distress HEENT: Atraumatic, PERRLA, EOMI, Normocephalic Oral: Moist Mucosa Neck: Supple, No JVD Lungs: Diminished, Normal air movement, No rhonchi, No wheeze, No rales Cardiovascular: Regular rate, Regular Rhythm, Normal S1, Normal S2, No murmurs Abdomen: Soft, Non Tender, Non-Distended, No Hepato-splenomegaly Extremities: Edema, Capillary Refill Less than 3 Seconds Skin: No rashes, No breakdown Musculoskeletal: No Tenderness to Palpation of Joints or Extremities Neurological: No focal neurological deficits, moves all extremities Psych/Mental Status: Normal Affect, Appropriate Assessment & Plan Assessment/Plan (1) CHF exacerbation: PLAN: Plan # Shortness of breath secondary to acute exacerbation of combined heart failure +/- upper respiratory infection -08/26: Patient presented with lower extremity edema and CTA that queried pulmonary congestion. proBNP was only 157 but was felt to be falsely low and patient was started on IV diuretics. Echo in July EF of 40 to 45%, repeat echo on floor with moderate concentric left ventricular hypertrophy and improved EF. As hospitalization progressed patient actually was producing sputum and quickly developed JOSIE with IV diuresis, reviewing CTA does appear to have areas with air bronchograms and appears suspicious for multifocal pneumonia. COVID and respiratory panel negative, patient was able to produce purulent appearing sputum sample to send for culture. Will send urine antigens and start Mucinex and DuoNebs. Continue Unasyn and add azithromycin, monitor weights and volume status, does still have some peripheral edema but given proBNP, JOSIE, and lack of clinical improvement with diuresis we will hold dose this afternoon and monitor on antibiotics and volume status, can resume IV diuresis in the a.m. pending clinical status and if there does still seem to be a large component of overload contributing to symptoms 08/27/2025: She does appear to be improving as she is on her baseline oxygen. Lasix was discontinued yesterday # JOSIE on CKD stage IIIb -08/26: Creatinine on presentation 1.36, yesterday 1.41 however today is 1.90. Appears baseline may be around 1.5, holding diuresis. Daily weights, difficulty getting I's and O's from patient, will check postvoid. Will temporarily decrease gabapentin dosing due to decreased creatinine clearance and will hold potassium given her potassium today is 4.3, JOSIE, and Lasix held 08/27/2025: Creatinine today has improved to 1.81 # Right lower extremity wound -Patient has several wounds on her right calf that are very circular and clustered together in nature, most appear to be burn wounds but patient very adamant she has no idea how these There, social work aware, do appear to be erythematous and possibly early infection so patient started on antibiotics -08/26: Patient started on Unasyn, still appears red, continue antibiotics #Hypothyroidism -Continue Synthroid - TSH of 12 and free T41.4 - This is certainly improved from previous, suspect her high dose of home Synthroid was due to how she was taking it which limited absorption - Admitting hospitalist decreased to 200 mcg daily, will need repeat labs in 4 to 6 weeks -08/26: Tolerating current dose #Type 2 diabetes mellitus -Glucose checks and sliding scale insulin - Home insulin continued but at lower dose to avoid hypoglycemia, can uptitrate as tolerated 08/27/2025 will monitor make adjustments as necessary #GERD - Stable, continue PPI DVT: Lovenox Charges/Coding Visit Charges Inpatient E&M: 71688 Subs Hosp L2
--- NOTE | 2025-08-27 10:14 | CASEMGMT ---
Addendum entered by Marizol Rueda 08/27/25 10:52: [facility] verified that pt is active and receives PT/OT/SN. Original Note: Discharge Planning EULA sent via [facility] to [facility] with note asking for verification of disciplines receiving. Awaiting response. Marizol Rueda DC Planning Asst.
--- NOTE | 2025-08-27 11:20 | CASEMGMT ---
Social Work SW called [facility] and left a message. ANA Benavidez
--- NOTE | 2025-08-27 11:36 | CASEMGMT ---
Social Work RANGEL spoke with DIANA Tierney [phone] with [facility]. RANGEL explained the patient does not want to DC to a SNF. RANGEL explained updates have been submitted to [facility] and patient will have this at [place]. Kelsy reported patients transportation is through [employer] . Kelsy requested DC orders to be sent to fax# [phone]. ANA Benavidez
--- NOTE | 2025-08-27 13:49 | CASEMGMT ---
Social Work SW spoke with the patient. Her JOSEE was in the room also. Patient reported her plan was still to DC home with HH. Patient reported she did not want to DC to a SNF. Patient reported a family member maybe able to transport her home at DC. ANA Benavidez
--- NOTE | 2025-08-27 14:04 | CASEMGMT ---
Social Work RANGEL called [facility] and spoke with Raymon. RANGEL informed her that the patient has 5 red round sores on her left leg that look infected and the right leg has one sore that is healing. RANGEL informed her the patient is saying she does not know where they came from. The concern is that the sores look like cigarette thomas. RANGEL provided Raymon with the patient contact information. Raymon requested SW call her when the patient discharges. Plan: RANGEL will call Raymon at [facility] when the patient discharges. ANA Benavidez
--- NOTE | 2025-08-27 14:50 | CHAPLAIN ---
Type of Pastoral Visit _x__ Initial Visit ___ Follow-up Visit ___ On-call Visit ___ General Patient Visit ___ Spiritual Assessment ___ Family Conference ___ Bereavement ___ Rapid Response ___ Code Blue ___ Other (describe below) Pastoral Care Referral From _x__ Patient ___ Family ___ Nurse ___ Physician ___ Conductor And Engineer ___ Musical Instruments Assembler ___ Other (describe below) Sacrament/Intervention _x__ Active listening ___ Anointing ___ Sikh ___ Bereavement ___ Communion ___ Vicky exploration ___ _x__ Life review _x__ Prayer ___ Reconciliation ___ Sacrament of Sick _x__ Supportive presence ___ Wedding ___ Other (describe below) Pastoral Comments patient has been seen before; pt is generally quiet but answers questions; pt says that she has been feeling a little better; pt is asked about her needs and she speaks of a nephew who had a motorcycle accident; prayer and presence and welcomed and given
[2025-08-27] MEDS: Insulin Glargine-YFGN 100 UNIT/ML Pen 30 UNIT SC (23:03)
[2025-08-28] MEDS: Ampicillin/Sulbactam 3 GM in 0.9% Normal Saline (100mL MB+) 100 ML IV ×2 (00:43→05:56)
[2025-08-28 03:45] VITALS: BP 104/74; PULSE 77; RESP 22; TEMP 36.5; O2SAT 98
[2025-08-28 05:21] VITALS: BMI 46.4
[2025-08-28 06:33] LABS: Hematocrit 31.0 % (37-47); Hemoglobin 9.6 g/dL (12.0-15.0); Immature Granulocytes Count 0.060 X10^3/uL (0.0-0.0); Mean Corp Hgb Conc 31.0 g/dL (32-36); Mean Corpuscular Volume 94.2 fL (81-99); Mean Platelet Vol. 10.3 fl (6.2-12.0); NRBC Flagged by Analyzer 0 % (0-5); Platelet Count 140 K/mm3 (150-450); RBC Distribution Width CV 16.0 % (11.6-14.6); RBC Distribution Width SD 56.3 fl (35.1-43.9); Red Blood Count 3.29 M/mm3 (4.2-5.4); White Blood Count 5.4 K/mm3 (4.4-11.0)
[2025-08-28 07:02] LABS: Anion Gap 10 (5-15); BUN 33 mg/dL (4-19); BUN/Creat Ratio 17.4 RATIO (10-20); Calcium,Total 8.6 mg/dL (7.6-11.0); Carbon Dioxide 26.9 mmol/L (21.0-32.0); Chloride 108 mmol/L (98-108); Estimated Creatinine Clearance 41.46 ml/min (50-250); Glucose 107 mg/dL (70-99); Potassium 4.3 mmol/L (3.3-5.1)
[2025-08-28 07:03] VITALS: PULSE 76; RESP 16
[2025-08-28 08:45] VITALS: BP 142/59; PULSE 82; RESP 20; TEMP 36.4; O2SAT 95
[2025-08-28] MEDS: CARBOXYMETHYLCELLULOSE SODIUM 1 DRP DROPS OPHTHALMIC ×2 (08:52→14:15)
[2025-08-28] MEDS: Cholecalciferol (Vit D3) 125 MCG CAPSULE (5,000 UNITS) PO (08:52)
[2025-08-28] MEDS: Azithromycin 500 MG in 0.9% Normal Saline (250mL Bag) 250 ML 250 MG IV (09:06)
--- NOTE | 2025-08-28 11:04 | DCINST_ITS ---
Discharge Instructions DC O2, CPAP, BIPAP needs Home O2 Discharge instructions: No Dressing / Incision Discharge Activity: Return to Normal Activity Dressing / Incision Call your doctor if you observe: Fever of 101 or Higher, Shortness of breath, Dizziness, Fainting spells, Swelling in the ankles, Chest pain and Increased palpitations (irregular heartbeat) Follow Up Care Test Results: Test results from this visit will be discussed in further detail at your follow- up appointment, if applicable. Discharge Plan Admission Admit Date/Time: 08/24/25 22:17 Attending Provider: Kalia Mora Primary Care Provider: Rebeka Rabago Consulting Providers: Franky Haque; Asya Hernandez; Kalia Mora; Rajinder Funes Discharge Orders/Prescriptions Prescriptions: New amoxicillin-pot clavulanate 875-125 mg tablet 1 tab PO BID Qty: 10 0RF Continued estradiol 0.01 % (0.1 mg/gram) cream 3 g VAGINAL .COMPLEX Patient Comments: insert 3 grams vaginally two times a week PT HAS NOT BEEN USING LATELY. Rx Instructions: 3 grams vaginally 2 TIMES PER WEEK; fenofibrate 160 mg tablet 160 mg PO DAILY Patient Comments: take 1 tablet by mouth once daily dicyclomine 10 mg capsule 10 mg PO ACHS Patient Comments: take 1 capsule by mouth four times a day before meals and at bedtime FOR ABDOMINAL PAIN. PT HAS NOT YET PICKED UP THE RX rosuvastatin 10 mg tablet 10 mg PO DAILY Patient Comments: take 1 tablet by mouth at bedtime gabapentin 800 mg tablet 800 mg PO TID Systane Ultra 0.4-0.3 % drops 1 drp ophthalmic (eye) 4X/DAY hydrocodone-acetaminophen 5-325 mg tablet 1 tab PO Q6H PRN (Reason: pain) insulin degludec [Tresiba FlexTouch U-100] 100 unit/mL (3 mL) insulin pen 86 unit SUBCUT QHS Patient Comments: INJECT 86 UNITS SUBCUTANEOUSLY DAILY AT BEDTIME OXYGEN - Supplemental ([facility] INFORMATIONAL USE ONLY) Patient Comments: Per CM and Patient-2lpm at home. DME=[employer] cholecalciferol (vitamin D3) 125 mcg (5,000 unit) capsule 125 mcg PO DAILY omeprazole 40 mg capsule,delayed release(DR/EC) 40 mg PO DAILY Trulicity 4.5 mg/0.5 mL pen injector 4.5 mg subcut QWEEK levothyroxine 150 mcg Tablet 300 mcg PO DAILY@0600 Qty: 30 0RF potassium chloride [Klor-Con 10] 10 mEq tablet extended release 20 meq PO DAILY Qty: 60 0RF insulin lispro [Humalog KwikPen Insulin] 100 unit/mL Insulin Pen 10 unit subcut TIDCM Qty: 1 0RF Held meloxicam 15 mg tablet 15 mg PO DAILY PRN (Reason: pain) Hold Instructions: Resume on 08/31/25. furosemide 40 mg Tablet 40 mg PO BIDLX Qty: 60 0RF Hold Instructions: Resume on 08/30/25. Referrals / Follow Up: Rebeka Rabago MD [Primary Care Provider, Internal Medicine] - Within 1 Week Disposition Disposition (needs filled in before D/C Order can be placed): Home, Self Care
--- NOTE | 2025-08-28 11:30 | CASEMGMT ---
Social Work SW spoke with the patient regarding her DC. Patient reported her brother or JOSEE can pick her up at [place]. SW spoke with the patient regarding making a referral to [facility] Home and the patient was in agreement for this referral. ANA Benavidez
--- NOTE | 2025-08-28 11:43 | CASEMGMT ---
Social Work SW faxed the ME orders to [facility]. ANA Benavidez
--- NOTE | 2025-08-28 11:44 | CASEMGMT ---
Social Work SW called [facility] and left a message that the patient is DC home today. ANA Benavidez
--- NOTE | 2025-08-28 11:44 | CASEMGMT ---
Addendum entered by Marizol Rueda 08/28/25 12:15: EULA will be 08/29/25. Original Note: Discharge Planning DC instructions sent via [facility] to [facility]. Marizol Rueda DC Planning Asst.
[2025-08-28 13:20] VITALS: PULSE 80; RESP 16
[2025-08-28 13:35] VITALS: O2SAT 88; O2SAT 90; O2SAT 95
--- NOTE | 2025-08-28 13:58 | CASEMGMT ---
COLT CM NOTE: Home amb O2 testing has been completed. Pt qualifies for O2 @ 3 L/M w/exertion now and only needs her baseline O2 of 2 L/M @ rest. Discharge plan updated. Script obtained from Dr Mora and sent to [facility] via [employer]. Brittany GARCIAN RN CM
--- NOTE | 2025-08-28 14:31 | DS.PCM_ITS ---
Providers Date of Admission: 08/24/25 Primary Care Physician: Dr. Rebeka Rabago MD Reason For Visit: CHF EXACERBATION WITH HYPOXIA ON EXERTION Diagnosis Discharge Diagnosis (1) CHF exacerbation: Status: Chronic Code(s): I50.9 - Heart failure, unspecified Medications at Discharge Home Medications estradiol 0.01% (0.1 mg/gram) vaginal cream 3 g vaginal .COMPLEX health maintenance 03/25/21 fenofibrate 160 mg tablet 160 mg PO DAILY cholesterol 03/25/21 dicyclomine 10 mg capsule 10 mg PO ACHS abdominal pain 07/06/21 rosuvastatin 10 mg tablet 10 mg PO DAILY cholesterol 07/06/21 cholecalciferol (vitamin D3) 125 mcg (5,000 unit) capsule 125 mcg PO DAILY SUPPLEMENT 05/03/24 omeprazole 40 mg capsule,delayed release 40 mg PO DAILY STOMACH 05/03/24 dulaglutide 4.5 mg/0.5 mL subcutaneous pen injector (Trulicity) 4.5 mg subcut QWEEK BLOOD SUGAR 10/27/24 gabapentin 800 mg tablet 800 mg PO TID NEUROPATHY 07/09/25 hydrocodone-acetaminophen 5-325mg 5mg-325mg 1 tab PO Q6H PRN pain 07/09/25 peg 400-propylene glycol 0.4 %-0.3 % eye drops (Systane Ultra) 1 drp ophthalmic (eye) 4X/DAY DRY EYE 07/09/25 meloxicam 15 mg tablet 15 mg PO DAILY PRN pain 08/01/25 Held on 08/28/25. Instructions: Resume on 08/31/25. furosemide 40 mg tablet 40 mg PO BIDLX diuretic #60 tabs 08/03/25 Held on 08/28/25. Instructions: Resume on 08/30/25. insulin lispro 100 unit/mL subcutaneous pen (Humalog KwikPen (U-100) Insulin) 10 unit (0.1 mL) subcut TIDCM DIABETES #1 mL 08/03/25 potassium chloride 10 mEq tablet,extended release (Klor-Con) 20 meq (2 x 10 mEq) PO DAILY supplement #60 tabs 08/03/25 insulin degludec 100 unit/mL (3 mL) subcutaneous pen (Tresiba FlexTouch U-100 insulin) 86 unit subcut QHS diabetes 08/24/25 OXYGEN - Supplemental ([facility] INFORMATIONAL USE ONLY) at home 08/25/25 amoxicillin 875 mg-potassium clavulanate 125 mg tablet 1 tab PO BID #10 tabs 08/28/25 levothyroxine 100 mcg tablet 200 mcg (2 x 100 mcg) PO DAILY 30 days #60 tabs 08/28/25 Hospital Course Operations None Procedures 2-D Echocardiogram Summary of Care Provided Minutes Spent on Discharge: 37 Hospital Course: Per HPI: BETTY AGARWAL, is a 59 F who presented to [facility] on 08/24/2025 with shortness of breath and lower extremity swelling. Medical history significant for combined heart failure, chronic respiratory failure on 2 L continuously, hypothyroidism, class II obesity, type 2 diabetes mellitus with neuropathy, CKD stage IIIb, GERD and chronic pain syndrome. She was last hospitalized here in late July for worsening weakness and lower extremity swelling. She was found to have severe hypothyroidism with TSH 56 and free T4 0.60 at that time. She was also found on limited echo to have worsening EF 40 to 45%, stage I diastolic dysfunction and mild concentric LV hypertrophy. She improved with some IV diuresis and a dose of IV Synthroid followed by initiation of home p.o. Synthroid, and she was able to be discharged home with home health care. Notably palliative care saw her here as well and patient was amenable to establishing with outpatient palliative care, but she did want to continue to be aggressive with her medical care at this time. In the ED today she was normotensive, in normal sinus rhythm and afebrile. She was satting in the mid 90s on home 2 L nasal cannula at rest but desaturated to the mid 80s and was short of breath with exertion. Chest x-ray showed CHF with increased pulmonary edema compared to previous, no pleural effusions noted. CBC and BMP were benign. Troponin trend 36 > 32 > 31. BNP 157, stable from previous but notably is underestimated with obesity. TSH 12 and free T4 1.40, much improved from previous. She was given a dose of IV Lasix and then hospitalist was contacted for admission. I saw the patient at bedside in the ED. Patient was fatigued and chronically ill-appearing but was otherwise sitting back comfortably in bed and answering questions appropriately. She did have +2-3 lower extremity pitting edema noted up to the knees and her legs were tender to palpation. She denied any fevers or chills. No upper respiratory infectious symptoms noted. No other acute concerns currently. Will be admitted for further management. Hospital Course: # Shortness of breath secondary to acute exacerbation of combined heart failure +/- upper respiratory infection -08/26: Patient presented with lower extremity edema and CTA that queried pulmonary congestion. proBNP was only 157 but was felt to be falsely low and patient was started on IV diuretics. Echo in July EF of 40 to 45%, repeat echo on floor with moderate concentric left ventricular hypertrophy and improved EF. As hospitalization progressed patient actually was producing sputum and quickly developed JOSIE with IV diuresis, reviewing CTA does appear to have areas with air bronchograms and appears suspicious for multifocal pneumonia. COVID and respiratory panel negative, patient was able to produce purulent appearing sputum sample to send for culture. Will send urine antigens and start Mucinex and DuoNebs. Continue Unasyn and add azithromycin, monitor weights and volume status, does still have some peripheral edema but given proBNP, JOSIE, and lack of clinical improvement with diuresis we will hold dose this afternoon and monitor on antibiotics and volume status, can resume IV diuresis in the a.m. pending clinical status and if there does still seem to be a large component of overload contributing to symptoms 08/27/2025: She does appear to be improving as she is on her baseline oxygen. Lasix was discontinued yesterday 08/28/2025: She is feeling much better today and request to be discharged home. I discussed with her the possibility of discharge and she expressed understanding of the risks and benefits of going home and would like to go home today. Will continue with Augmentin for another 5 days on discharge, and will hold her Lasix for another few days given her JOSIE. I do recommend she follow-up with her PCP in 3 to 5 days for lab work and follow-up. Her echocardiogram on this admission demonstrated normal ejection fraction with mild concentric left ventricular hypertrophy. She did need 2 L at rest and 3 L with nasal cannula with ambulation, I have reviewed the oxygen testing, and this patient qualifies for the home equipment and portability. The patient is mobile in the home and the community. # JOSIE on CKD stage IIIb -08/26: Creatinine on presentation 1.36, yesterday 1.41 however today is 1.90. Appears baseline may be around 1.5, holding diuresis. Daily weights, difficulty getting I's and O's from patient, will check postvoid. Will temporarily decrease gabapentin dosing due to decreased creatinine clearance and will hold potassium given her potassium today is 4.3, JOSIE, and Lasix held 08/27/2025: Creatinine today has improved to 1.81 # Right lower extremity wound -Patient has several wounds on her right calf that are very circular and clustered together in nature, most appear to be burn wounds but patient very adamant she has no idea how these There, social work aware, do appear to be erythematous and possibly early infection so patient started on antibiotics -08/26: Patient started on Unasyn, still appears red, continue antibiotics 08/28/2025: Continue with Augmentin for another 5 days on discharge #Hypothyroidism -Continue Synthroid - TSH of 12 and free T41.4 - This is certainly improved from previous, suspect her high dose of home Synthroid was due to how she was taking it which limited absorption - Admitting hospitalist decreased to 200 mcg daily, will need repeat labs in 4 to 6 weeks -08/26: Tolerating current dose 08/28/2025: Will continue with Synthroid 200 mcg daily on discharge recommend outpatient follow-up to monitor labs in another month or so #Type 2 diabetes mellitus -Glucose checks and sliding scale insulin - Home insulin continued but at lower dose to avoid hypoglycemia, can uptitrate as tolerated 08/27/2025: Will monitor make adjustments as necessary 08/28/2025: Can resume her home insulin dosing though I do recommend monitoring given how high the Lantus is and make adjustments as indicated, this was discussed. #GERD - Stable, continue PPI Physical Exam Narrative General: Alert, Oriented x3, Cooperative, No apparent distress HEENT: Atraumatic, PERRLA, EOMI, Normocephalic Oral: Moist Mucosa Neck: Supple, No JVD Lungs: Diminished, Normal air movement, No rhonchi, No wheeze, No rales Cardiovascular: Regular rate, Regular Rhythm, Normal S1, Normal S2, No murmurs Abdomen: Soft, Non Tender, Non-Distended, No Hepato-splenomegaly Extremities: Edema, Capillary Refill Less than 3 Seconds Skin: No rashes, No breakdown Musculoskeletal: No Tenderness to Palpation of Joints or Extremities Neurological: No focal neurological deficits, moves all extremities Psych/Mental Status: Normal Affect, Appropriate Weight / BMI Weight Weight: 270 lb 11.642 oz Body Mass Index (BMI) 46.4 ABG / Lab / Microbiology Data 08/28/25 06:03 08/28/25 06:03 Laboratory: Laboratory Results - last 24 hr 08/27/25 16:38: POC Glucose 153 H 08/27/25 23:01: POC Glucose 130 H 08/28/25 06:03: WBC 5.4, RBC 3.29 L, Hgb 9.6 L, Hct 31.0 L, MCV 94.2, MCH 29.2, MCHC 31.0 L, RDW Std Deviation 56.3 H, RDW Coeff of Catina 16.0 H, Plt Count 140 L, MPV 10.3, Immature Gran % (Auto) 1.100 H, Neut % (Auto) 69.6, Lymph % (Auto) 14.7 L, [place] % (Auto) 8.0, Eos % (Auto) 6.0 H, Baso % (Auto) 0.6, Absolute Neuts (auto) 3.7, Absolute Lymphs (auto) 0.79 L, Nucleated RBC % 0, Sodium 145, Potassium 4.3, Chloride 108, Carbon Dioxide 26.9, Anion Gap 10, BUN 33 H, C reatinine 1.89 H, Estim Creat Clear Calc 41.46 L, Est GFR (MDRD) Non-Af 30 L, BUN/Creatinine Ratio 17.4, Glucose 107 H, Calcium 8.6 08/28/25 08:45: POC Glucose 110 H 08/28/25 11:45: POC Glucose 163 H Microbiology: Microbiology 08/26/25 09:45 Sputum, Expectorated/Coughed Gram Stain - Final 08/26/25 09:45 Sputum, Expectorated/Coughed Respiratory Culture - Preliminary Presumptive C albicans 08/26/25 14:35 Urine, Clean Catch Legionella Antigen - Final 08/26/25 14:35 Urine, Clean Catch Streptococcus pneumoniae Antigen (M - Final 08/25/25 18:20 Mucosa - Nasopharyngeal Respiratory Panel (PCR) - Final 08/25/25 17:50 Mucosa - Nasopharyngeal Coronavirus COVID-19 PCR - Final D/C Instructions Call your doctor if you observe: Fever of 101 or Higher, Shortness of breath, Dizziness, Fainting spells, Swelling in the ankles, Chest pain and Increased palpitations (irregular heartbeat) DC O2, CPAP, BIPAP Needs Home O2 Discharge instructions: No Meaningful Use Info Meaningful Use Meaningful Use Diagnoses (Choose all that apply): None applicable Discharge Plan Admission Admit Date/Time: 08/24/25 22:17 Attending Provider: Kalia Mora Primary Care Provider: Rebeka Rabago Consulting Providers: Franky Haque; Asya Hernandez; Kalia Mora; Rajinder Funes Discharge Orders/Prescriptions Prescriptions: New amoxicillin-pot clavulanate 875-125 mg tablet 1 tab PO BID Qty: 10 0RF levothyroxine 100 mcg Tablet 200 mcg PO DAILY 30 Days Qty: 60 0RF Continued estradiol 0.01 % (0.1 mg/gram) cream 3 g VAGINAL .COMPLEX Patient Comments: insert 3 grams vaginally two times a week PT HAS NOT BEEN USING LATELY. Rx Instructions: 3 grams vaginally 2 TIMES PER WEEK; fenofibrate 160 mg tablet 160 mg PO DAILY Patient Comments: take 1 tablet by mouth once daily dicyclomine 10 mg capsule 10 mg PO ACHS Patient Comments: take 1 capsule by mouth four times a day before meals and at bedtime FOR ABDOMINAL PAIN. PT HAS NOT YET PICKED UP THE RX rosuvastatin 10 mg tablet 10 mg PO DAILY Patient Comments: take 1 tablet by mouth at bedtime gabapentin 800 mg tablet 800 mg PO TID Systane Ultra 0.4-0.3 % drops 1 drp ophthalmic (eye) 4X/DAY hydrocodone-acetaminophen 5-325 mg tablet 1 tab PO Q6H PRN (Reason: pain) insulin degludec [Tresiba FlexTouch U-100] 100 unit/mL (3 mL) insulin pen 86 unit SUBCUT QHS Patient Comments: INJECT 86 UNITS SUBCUTANEOUSLY DAILY AT BEDTIME OXYGEN - Supplemental ([facility] INFORMATIONAL USE ONLY) Patient Comments: Per CM and Patient-2lpm at home. DME=[employer] cholecalciferol (vitamin D3) 125 mcg (5,000 unit) capsule 125 mcg PO DAILY omeprazole 40 mg capsule,delayed release(DR/EC) 40 mg PO DAILY Trulicity 4.5 mg/0.5 mL pen injector 4.5 mg subcut QWEEK potassium chloride [Klor-Con 10] 10 mEq tablet extended release 20 meq PO DAILY Qty: 60 0RF insulin lispro [Humalog KwikPen Insulin] 100 unit/mL Insulin Pen 10 unit subcut TIDCM Qty: 1 0RF Held meloxicam 15 mg tablet 15 mg PO DAILY PRN (Reason: pain) Hold Instructions: Resume on 08/31/25. furosemide 40 mg Tablet 40 mg PO BIDLX Qty: 60 0RF Hold Instructions: Resume on 08/30/25. Discontinued levothyroxine 150 mcg Tablet 300 mcg PO DAILY@0600 Qty: 30 0RF Referrals / Follow Up: Rebeka Rabago MD [Primary Care Provider, Internal Medicine] - 09/04/25 11:20 am Referral Note: Appointment with Ariane Ely N.P. Disposition Disposition (needs filled in before D/C Order can be placed): Home, Self Care Charges/Coding Visit Charges Inpatient E&M: 65764 Disch Hosp >30min
--- NOTE | 2025-08-28 14:54 | CASEMGMT ---
Social Work Raymon from [facility] called and left a message. Raymon stated she received message that the patient is DC home today. She reported she will go out within 3 business days. ANA Benavidez
== END 2025-08-28 15:11 | disposition home or self-care (01) | DRG 194 ==
LOC: ED 15:55 → PCU 22:45
PROVIDERS: Hospitalist; Internal Medicine; Admitting Provider Internal Medicine; Emergency Provider Emergency Medicine; PCP Internal Medicine; Visit Provider Family Medicine
DX: I13.0 Hypertensive heart and chronic kidney disease with heart failure and stage 1 through stage 4 chronic kidney disease, or unspecified chronic kidney disease (principal); N17.9 Acute kidney failure, unspecified; S81.801A Unspecified open wound, right lower leg, initial encounter; J96.11 Chronic respiratory failure with hypoxia; E11.22 Type 2 diabetes mellitus with diabetic chronic kidney disease; D64.9 Anemia, unspecified; Z68.41 Body mass index [BMI] 40.0-44.9, adult; N18.32 Chronic kidney disease, stage 3b; I50.43 Acute on chronic combined systolic (congestive) and diastolic (congestive) heart failure; E03.9 Hypothyroidism, unspecified; E11.40 Type 2 diabetes mellitus with diabetic neuropathy, unspecified; Z79.4 Long term (current) use of insulin; E78.00 Pure hypercholesterolemia, unspecified; K21.9 Gastro-esophageal reflux disease without esophagitis; J06.9 Acute upper respiratory infection, unspecified; Z79.899 Other long term (current) drug therapy; E66.813 Obesity, class 3; G89.4 Chronic pain syndrome; Z79.890 Hormone replacement therapy; Z74.09 Other reduced mobility; Z79.85 Long-term (current) use of injectable non-insulin antidiabetic drugs; Z87.891 Personal history of nicotine dependence; Z90.49 Acquired absence of other specified parts of digestive tract; R53.81 Other malaise; Z79.891 Long term (current) use of opiate analgesic
CPT/HCPCS: 36415; 36600; 71045; 71275; 73620; 80048; 82803; 82962; 83880; 84439; 84443; 84484; 85025; 85027; 85379; 87070; 87077; 87186; 87205; 87449; 87633; 87635; 93005; 93308; 93970; 94640; 94668; 97116; 97162; 97166; 97530; 97535; 99285; Q9957; Q9967; A4216; J0295; J1938